=== PATIENT | male | born 1950 | race Caucasian/White ===

== ENCOUNTER 2017-09-12 09:09 | Emergency (ER) | payer MEDICARE, OTHER, SELFPAY ==
[2017-09-12 09:11] VITALS: BP 148/72; PULSE 90; RESP 18; TEMP 36.2; O2SAT 96; BMI 35.9
--- NOTE | 2017-09-12 09:25 | RAD_ITS ---
STUDY: X-RAY CHEST REASON FOR EXAM: Male, 67 years old. Cough. TECHNIQUE: Single AP portable view of the chest. COMPARISON: January 04, 2017. FINDINGS: There is moderate elevation of left hemidiaphragm. The right lung is expanded. Curvilinear opacities visible at the left lung base, similar to previous study and probably related to pulmonary fibrosis. There is mild interstitial thickening visible in both lungs. There is pleural fibrotic thickening of the pulmonary lung apices. There is borderline cardiomegaly. Normal mediastinum and jewel. There is prominence of the pulmonary hilar arteries without peripheral pulmonary vascular congestion. There is atherosclerotic calcification of the aortic arch with tortuosity. There is demineralization of the osseous structures. Normal visualized ribs, clavicles, and shoulders. There is no demonstrated abnormality of the visualized soft tissue structures of the upper abdomen. RAD/Chest 1 View IMPRESSION: No radiographic evidence of acute cardiopulmonary disease. Electronically Signed: Norma Ascencio MD at 10:25 EDT , Service support ,
--- NOTE | 2017-09-12 09:27 | ED.DCSUM_ITS ---
- ER Visit Summary Date of Service: 09/12/17 Chief Complaint: Fall, cough History of Present Illness: The patient is a 67 M who presents with a fall as well as a cough. He has fallen twice over the past couple of days. He states that his leg gave out and he fell off of the porch. His son had to help him up. He had pain in his back yesterday but that is now gone. He has some mild pain in his left shoulder. He states that he is here today only for his cough. He woke up this morning with it. It is productive of white sputum. He denies a history of lung problems but according to his chart he has mild COPD. He is a former smoker. He denies a fever. Physical Examination: Vital signs reviewed. HEENT exam unremarkable. Heart is regular rate and rhythm without murmurs. Lungs are clear to auscultation. Abdomen is soft and nontender. Extremities reveal no edema. He has no tenderness with range of motion or palpation of the left shoulder. His back is nontender. Skin exam normal. Neurologic exam normal. Test Results: Chest x-ray reveals no acute findings Emergency Department Course and Treatment: Patient was given 1 albuterol treatment. He feels better. He has no physical injuries from his falls. I do not feel any x-rays are needed for those. He has no rib fractures on x-ray. Patient will be treated with prednisone at home. I feel he likely has underlying bronchitis. He is a former smoker. I do not feel he requires any antibiotics as there is no change in his sputum production. He will use his albuterol inhaler he has at home. says he has not been using it recently. He will start using this and will follow up with his doctor Treatment Plan: [] Disposition: Discharge Impression: Acute bronchitis This note was generated with [employer] software. It may contain incorrect words, spelling, and punctuation that were not noted in review of the chart prior to signing ED Disposition - Plan for ED Patient: Chief Complaint: Fall Referrals: Raffaele Olguin MD [Primary Care Provider] -
[2017-09-12] MEDS: Albuterol 2.5 MG/3 ML VIAL.NEB. INHALATION (09:37)
[2017-09-12 09:39] VITALS: PULSE 89; RESP 18
--- NOTE | 2017-09-12 10:40 | ED.DEP ---
ED Disposition - Plan for ED Patient: Disposition: Home or Assisted Living Chief Complaint: Fall Instructions: ED Upper Resp Infec No Abx Tx Prescriptions: Prednisone [Deltasone] 60 mg PO DAILY #15 tab Referrals: Raffaele Olguin MD [Primary Care Provider] -
[2017-09-12 10:43] VITALS: BP 108/81; PULSE 94; RESP 16; O2SAT 92
== END 2017-09-12 11:00 | disposition home or self-care (01) ==
PROVIDERS: Emergency Provider Emergency Medicine; Family Provider Family Medicine; PCP Family Medicine
DX: J20.9 Acute bronchitis, unspecified (principal); W18.39XA Other fall on same level, initial encounter; Y93.9 Activity, unspecified; J44.9 Chronic obstructive pulmonary disease, unspecified; E11.9 Type 2 diabetes mellitus without complications; E78.00 Pure hypercholesterolemia, unspecified; E03.9 Hypothyroidism, unspecified; Z79.899 Other long term (current) drug therapy; Z79.4 Long term (current) use of insulin; Z79.84 Long term (current) use of oral hypoglycemic drugs; Z87.891 Personal history of nicotine dependence
CPT/HCPCS: 71045; 94640; 99282

== ENCOUNTER → 2017-09-30 07:49 | Outpatient (CLI) | payer MEDICARE, OTHER, SELFPAY ==
[2017-09-30 10:17] LABS: ALB/GLOB Ratio 0.8 RATIO (0.9-2.4); AST(SGOT) 15 U/L (15-37); Alanine Aminotransfer ALT/SGPT 27 U/L (16-61); Albumin, Serum 3.3 g/dL (3.2-5.0); Alkaline Phosphatase 78 U/L (45-117); Anion Gap 5 (5-15); BUN 16 mg/dL (7-18); BUN/Creat Ratio 17.6 RATIO (10-20); Calcium,Total 8.5 mg/dL (8.5-10.1); Chloride 102 mmol/L (98-107); Cholesterol 127 mg/dL (200); Creatinine, Serum 0.91 mg/dL (0.70-1.30); EST Glomerular Filtration Rate 88 mL/min (>60); Est Glom Filt Rate - Afr Amer 106 mL/min (>60); Glucose 327 mg/dL (74-106); High Density Lipoprotein 49 mg/dL; Potassium 4.1 mmol/L (3.5-5.1); Protein, Total 7.3 g/dL (6.4-8.2); Sodium Level 136 mmol/L (136-145); Triglycerides 53 mg/dL; Very Low Density Lipoprotein 11 mg/dL (5-40)
[2017-09-30 10:35] LABS: Microalbumin,Random Urine 16.5 mg/L (NO RANGE EST.); Microalbumin:Creatinine Ratio 19.4 mg/g CRE (<30 mg/g CRE)
== END ==
PROVIDERS: Family Provider Family Medicine; PCP Family Medicine; Visit Provider Nurse Practitioner
DX: E11.65 Type 2 diabetes mellitus with hyperglycemia (principal)
CPT/HCPCS: 36415; 80053; 80061; 82043; 82570

== ENCOUNTER 2018-09-11 13:40 | Emergency (ER) | payer MEDICARE, OTHER, SELFPAY ==
[2018-09-11 13:40] VITALS: BP 130/89; PULSE 95; RESP 20; TEMP 36.4; O2SAT 94; BMI 36.3
--- NOTE | 2018-09-11 14:01 | CT_ITS ---
STUDY: CT BRAIN WITHOUT CONTRAST REASON FOR EXAM: Male, 68 years old. Fall. Pain in the lower back. RADIATION DOSAGE (If Supplied By Facility): CTDIvol = ( 44.99 ) mGy, DLP = ( 829.95 ) mGycm TECHNIQUE: Transaxial CT imaging of the brain was performed without administration of intravenous contrast material. Individualized dose optimization techniques were used for this CT. COMPARISON: No relevant priors. FINDINGS: Normal soft tissue structures. Normal calvarium. There is mild cerebral atrophy with widening of the extra-axial spaces and ventricular dilatation. There are areas of decreased attenuation within the white matter tracts of the supratentorial brain, consistent with microvascular disease changes. Focal encephalomalacia is seen in the left frontal lobe. Normal basal ganglia and thalami. Normal brainstem. Normal cerebellum. There is no intracranial hemorrhage. There are no findings of an acute ischemic infarction. Atherosclerotic calcification of the cavernous portions of the internal carotid arteries bilaterally. Normal visualized paranasal sinuses. CT/Brain/Head without Contrast IMPRESSION: Chronic involutional changes of the brain. Focal encephalomalacia in the left frontal lobe. Electronically Signed: Scar Alvarez, at 15:22 EDT , Service support ,
--- NOTE | 2018-09-11 14:01 | CT_ITS ---
STUDY: CT ABDOMEN AND PELVIS WITH CONTRAST REASON FOR EXAM: Male, 68 years old. Lower back pain following a fall. RADIATION DOSAGE (If Supplied By Facility): CTDIvol = ( 18.74 ) mGy, DLP = ( 1499.72 ) mGycm TECHNIQUE: Transaxial images were obtained from the dome of the diaphragm to the symphysis pubis without oral contrast. 100 IV Isovue 300 was administered. Sagittal and coronal images were reconstructed. Individualized dose optimization techniques were used for this CT. COMPARISON: None. FINDINGS: Mild increased markings at the lung bases suggestive of scarring. Coronary artery calcification. Normal liver. There is a solitary gallstone. Normal spleen. Serpiginous vascular structures are seen in the splenic hilum suggestive of varices. Normal pancreas. Normal bilateral adrenal glands. Normal right kidney. Normal left kidney. There is a small hiatal hernia. Normal small intestine. Normal colon. The appendix is visualized and appears normal. There is diffuse atherosclerotic calcification of the abdominal aorta, without a demonstrated aneurysm. Normal inferior vena cava. Normal retroperitoneum. Normal urinary bladder. There are prostatic calcifications. Small bilateral inguinal hernias containing fat. 50% loss of height of the L5 and L4 vertebrae as well as almost complete collapse of the T12 vertebrae. Prior vertebral plasty of the T11 and L2 vertebrae. CT/Abdomen/Pelvis W IV Cont ONLY IMPRESSION: Solitary gallstone. Findings suggestive of scarring at the lung bases. Loss of height of the L4 and L5 vertebrae as well as the T12 vertebrae. Prior vertebroplasty of the T11 and L2 vertebrae. Electronically Signed: Scar Alvarez, at 15:44 EDT , Service support ,
[2018-09-11] MEDS: 0.9% Normal Saline 1,000 ML 150 ML IV (14:22)
[2018-09-11 14:32] LABS: Absolute Lymphocyte Count 1.68 X10^3/ul (0.83-4.51); Basophil# 0.01 X10^3/uL; Basophil% 0.1 % (0-1); Eosinophil# 0.12 X10^3/uL; Eosinophils% 1.4 % (0-5); Hematocrit 39.9 % (40-54); Hemoglobin 13.3 g/dl (13.0-16.5); Lymphocyte # 1.68 X10^3/ul (4.0); Lymphocyte % 19.9 % (19-41); Mean Corp Hgb Conc 33.3 g/gl (32-36); Mean Corpuscular Hgb 30.2 pg (27.0-32.0); Mean Corpuscular Volume 90.7 fL (80-94); Monocyte# 0.62 X10^3/uL; Monocyte% 7.3 % (0-10); Neutrophil # 5.96 X10^3/uL (2.7-7.7); Neutrophil % 70.6 % (47-70); Platelet Count 120 K/mm3 (150-450); RBC Distribution Width CV 13.9 % (11.6-14.6); RBC Distribution Width SD 46.1 fl (35.1-43.9); White Blood Count 8.5 K/mm3 (4.4-11.0)
[2018-09-11 14:35] LABS: POSITIVE COUNT NO; POSITIVE DIFFERENTIAL NO; POSITIVE MORPHOLOGY NO
[2018-09-11 14:42] LABS: Anion Gap 5 (5-15); BUN 20 mg/dL (7-18); BUN/Creat Ratio 24.3 RATIO (10-20); Calcium,Total 8.7 mg/dL (8.5-10.1); Chloride 103 mmol/L (98-107); Creatinine, Serum 0.82 mg/dL (0.70-1.30); EST Glomerular Filtration Rate 98 mL/min (>60); Est Glom Filt Rate - Afr Amer 119 mL/min (>60); Estimated Creatinine Clearance 102.91 ml/min; Glucose 188 mg/dL (74-106); Potassium 3.9 mmol/L (3.5-5.1); Sodium Level 136 mmol/L (136-145)
--- NOTE | 2018-09-11 15:23 | ED.DCSUM_ITS ---
- ER Visit Summary Date of Service: 09/11/18 Chief Complaint: [Mechanical fall and back injury] History of Present Illness: The patient is a 68 M [presents to the emergency department after sustaining a fall around 10:30 AM. Patient states he was doing some yard work cleaning up some trash in his yard when he lost his balance and fell backwards landing on his back. Patient complaining of low back pain. Patient had a hard time getting up initially his could not help him up but he eventually he was able to get up and he has been ambulatory since. Patient does not think he hit his head and he had no loss of consciousness. Patient is on Eliquis for history of atrial fibrillation. He has a history of diabetes and history of high cholesterol. Patient denies any neck pain. He denies any chest pain or abdominal pain. He denies any shortness of breath.] Physical Examination: [HEENT-PERRLA, EOMI. Cranial nerves II through XII grossly intact. TMs clear. Mucous membranes moist. No adenopathy. No external evidence of trauma to his head. No C-spine tenderness on palpation. Back exam-patient has some diffuse tenderness over lumbar spine and left flank. There is no ecchymosis or bruising noted. Cardiovascular-regular rate and rhythm without murmur or ectopy Lungs-clear to auscultation, chest wall stable without crepitus or subcu emphysema Abdomen-normoactive bowel sounds, soft, nontender, no rebound or rigidity, no peritoneal signs. Extremities-intact ?4, normal range of motion, normal pulses, atraumatic] Test Results: [CBC with differential obtained showed a normal white count of 8.5, hemoglobin 13, hematocrit 40, platelets 120. Chemistries unremarkable. CT scan of the brain and CT scan of the abdomen pelvis with IV contrast ordered and results which are currently pending] Emergency Department Course and Treatment: [Patient refused pain medication] Treatment Plan: [Care of patient turned over the evening physician awaiting CT results and final disposition] Disposition: [Pending] Impression: [Mechanical fall Contusion back] This note was generated with [employer] software. It may contain incorrect words, spelling, and punctuation that were not noted in review of the chart prior to signing ED Disposition - Plan for ED Patient: Referrals: Raffaele Olguin MD [Primary Care Provider] -
--- NOTE | 2018-09-11 15:49 | ED.DEP ---
ED Disposition - Plan for ED Patient: Disposition: Home or Assisted Living Instructions: ED Mechanical Fall Prescriptions: Oxycodone HCl/Acetaminophen [Percocet 5/325] 1 tab PO Q6H PRN PRN 3 Days #8 tab PRN Reason: Pain Referrals: Raffaele Olguin MD [Primary Care Provider] -
[2018-09-11 16:08] VITALS: BP 139/84; PULSE 71; RESP 16; O2SAT 95
== END 2018-09-11 16:09 | disposition home or self-care (01) ==
PROVIDERS: Emergency Provider Emergency Medicine; Family Provider Family Medicine; PCP Family Medicine
DX: S32.049A Unspecified fracture of fourth lumbar vertebra, initial encounter for closed fracture (principal); S32.059A Unspecified fracture of fifth lumbar vertebra, initial encounter for closed fracture; S30.0XXA Contusion of lower back and pelvis, initial encounter; W18.39XA Other fall on same level, initial encounter; Y93.H9 Activity, other involving exterior property and land maintenance, building and construction; Y92.007 Garden or yard of unspecified non-institutional (private) residence as the place of occurrence of the external cause; E11.9 Type 2 diabetes mellitus without complications; E03.9 Hypothyroidism, unspecified; E78.00 Pure hypercholesterolemia, unspecified; I48.91 Unspecified atrial fibrillation; Z79.01 Long term (current) use of anticoagulants; Z79.4 Long term (current) use of insulin; Z79.84 Long term (current) use of oral hypoglycemic drugs; Z79.899 Other long term (current) drug therapy; Z87.891 Personal history of nicotine dependence
CPT/HCPCS: 70450; 74177; 80048; 85025; 96360; 96361; 99283; J7030; Q9967; A4216

== ENCOUNTER 2018-09-16 11:52 | Inpatient (IN) | payer MEDICARE, OTHER, SELFPAY ==
[2018-09-16 11:53] VITALS: BP 122/78; PULSE 91; RESP 16; TEMP 36.5; O2SAT 92; BMI 36.5
[2018-09-16 13:17] LABS: Anion Gap 4 (5-15); BUN 16 mg/dL (7-18); BUN/Creat Ratio 17.2 RATIO (10-20); Calcium,Total 8.9 mg/dL (8.5-10.1); Chloride 107 mmol/L (98-107); Creatinine, Serum 0.93 mg/dL (0.70-1.30); EST Glomerular Filtration Rate 85 mL/min (>60); Est Glom Filt Rate - Afr Amer 103 mL/min (>60); Estimated Creatinine Clearance 90.74 ml/min; Glucose 106 mg/dL (74-106); Potassium 3.9 mmol/L (3.5-5.1); Sodium Level 140 mmol/L (136-145)
[2018-09-16 13:52] LABS: Absolute Lymphocyte Count 1.44 X10^3/ul (0.83-4.51); Absolute Neutrophil Count 7.4 X10^3/uL (2.0-7.7); Basophil# 0.03 X10^3/uL; Basophil% 0.3 % (0-1); Differential Indicated SCAN CRITERIA MET; Eosinophil# 0.09 X10^3/uL; Eosinophils% 0.9 % (0-5); Hematocrit 41.6 % (40-54); Hemoglobin 13.9 g/dl (13.0-16.5); Lymphocyte # 1.44 X10^3/ul (4.0); Lymphocyte % 14.6 % (19-41); Mean Corp Hgb Conc 33.4 g/gl (32-36); Mean Corpuscular Volume 89.8 fL (80-94); Monocyte# 0.83 X10^3/uL; Monocyte% 8.4 % (0-10); Neutrophil # 7.43 X10^3/uL (2.7-7.7); Neutrophil % 75.5 % (47-70); POSITIVE COUNT NO; POSITIVE DIFFERENTIAL NO; POSITIVE MORPHOLOGY YES; Platelet Count 108 K/mm3 (150-450); RBC Distribution Width CV 14.1 % (11.6-14.6); RBC Distribution Width SD 46.1 fl (35.1-43.9); Red Blood Count 4.63 M/mm3 (4.6-6.2); White Blood Count 9.9 K/mm3 (4.4-11.0)
--- NOTE | 2018-09-16 14:43 | RAD_ITS ---
STUDY: X-RAY - RIGHT FEMUR REASON FOR STUDY: Male, 68 years old. Pain since Saturday, throbbing, fall on . TECHNIQUE: 6 view(s) of the femur. COMPARISON: None. FINDINGS: Normal visualized femur. No acute soft tissue injury. Prominent peripheral arterial calcifications. No evidence of knee joint effusion. No significant degenerative features of the hip joint. RAD/Femur Min 2 Views IMPRESSION: Normal x-ray examination of the femur. Electronically Signed: Yonis Taylor MD at 15:48 EDT Tel , Service support ,
--- NOTE | 2018-09-16 15:30 | ED.VISSUMM ---
- ER Visit Summary Date of Service: 09/16/18 Chief Complaint: Frequent falls History of Present Illness: The patient is a 68 M who states that last week he was seen in the emergency department following a fall. Chart review shows this occurred on 411. CT of the abdomen pelvis demonstrates 50% loss of height of the L5 and L4 vertebrae. There is also almost complete collapse of T12 vertebrae. Patient has had prior T11 and L2 vertebroplasty.The T12 is old. Patient states he has been using a cane at home. He states that as he goes to move he has severe pain wrapping around the buttock and down over the anterior lower thigh. This is resulted in him falling multiple times. lives at home with his . She states they have had to call family to come help lift him off the floor. is concerned about his safety. Physical Examination: Afebrile vital signs are stable Gen: Well-nourished well-developed Head: Normocephalic atraumatic Eyes: Perrl EOMI ENT: TMs clear no rhinorrhea moist mucous membranes Neck: Supple no lymphadenopathy no JVD nontender CVS: Regular rate rhythm no murmurs normal S1-S2 Respiratory: No distress clear to auscultation bilaterally chest nontender Abdomen: Soft nontender nondistended normal bowel sounds no masses Back: Tender palpation midline of the lumbar lower spine Extremity: Nontender no edema Skin: Normal color no rash Neuro: alert orientated ?3 CN II-XII intact normal strength sensation reflexes Psych: Normal affect normal mood Test Results: X-ray of the femur were negative. CBC and chemistries were normal. Emergency Department Course and Treatment: I too am concerned about the patient's safety at home as he is frequently falling. I suspect that due to the compression fractures she is having some radiculopathy particularly the L4 dermatome that results in pain and him falling. I think would be appropriate to bring him in under observation and have physical therapy evaluate him as well as possibly pain management. Impression: 1. L4 and L5 compression fractures. 2. L4 radiculopathy. This note was generated with [employer] software. It may contain incorrect words, spelling, and punctuation that were not noted in review of the chart prior to signing ED Disposition - Plan for ED Patient: Referrals: Raffaele Olguin MD [Primary Care Provider] -
[2018-09-16 15:34] VITALS: BP 121/95; PULSE 86; RESP 16; O2SAT 93
--- NOTE | 2018-09-16 15:50 | NURSING ---
MED SURG OBS PAINTSIL L4/5 COMPRESSION FX, L4 RADICULAPATHY
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
[2018-09-16 15:59] VITALS: BP 121/95; PULSE 86; RESP 16; O2SAT 93
[2018-09-16 16:29] VITALS: BMI 36.5
[2018-09-16 16:36] VITALS: BMI 35.8
--- NOTE | 2018-09-16 16:41 | CASEMGMT ---
RN CM Assessment Introduced role of RN CM to patient and Ramone at bedside.? Patient is alert, oriented and able?to participate in RN CM Assessment. ?Care providers, pharmacy, and demographics verified. Presentation: Presented to ER 09/11/18 for c/o Fall, DX L4&L5 Compression Fx. Decreased Mobility at home d/t pain, patient on floor per d/t pain and unable to get him up, called EMS. Unable to get f/u with pcp after ED Visit as pcp on vacation. Admit Dx: Acute low back pain/compression Re-Admit: No Barriers/Issues: Home Safety, H/o Falls. PCP: Raffaele Olguin Specialists: [facility], Pod- Dr Anderson Preferred Pharmacy: [facility] Original Insurance: [email or web address], [facility] Benefit:?Yes ?LNOK: Ramone Turcios Living Arrangements:? Lives with in a SS Home, other Adult family live in home. 2 Steps to enter. ADL?s: Independent with ambulation and ADL's, uses Cane as needed. Transportation: Patient drives, to drive on [place]. DME: Cane, Glucometer. Patient does not want any additional DME such as Walker or WC. HHC: None. Open to PT if needed, however states his dog went off on EMS so unsure about people in the home. States had Outpatient PT in past- might be better option if PT needed. SNF: Past at [facility] Goal: Pain Control, Home with possible Outpatient PT if needed. Denies needing any DME such as walker/WC. DC PLAN: Home with possible HH vs. Outpatient PT. MARBELLA Almendarez
[2018-09-16 17:41] VITALS: BP 124/76; PULSE 75; RESP 18; TEMP 36.3; O2SAT 96
[2018-09-16 19:18] LABS: Hemoglobin A1c 7.9 % (4.2-6.3)
[2018-09-16] MEDS: Morphine 2 MG/ML Syringe 1 MG IV (19:53)
[2018-09-16] MEDS: 0.9% NaCl Peripheral Flush Adult/Peds IV (19:54)
[2018-09-16 20:06] VITALS: BP 136/84; PULSE 96; RESP 16; TEMP 36.9; O2SAT 94
[2018-09-16 20:18] LABS: Bacteria 0 SEEN /hpf (None Seen); Red Blood Cells-Urine 0 SEEN /hpf (0-5); Squamous Epithelial Cells - UA 0 SEEN /hpf (0-5); White Blood Cells 0 SEEN /hpf (0-5)
[2018-09-16 20:25] LABS: Color, Urine Yellow (Yellow); Glucose, Dipstick Normal (Normal); Ketone-Dipstick Negative (Negative); Leukocyte Esterase-Dipstick 25 /ul (Negative); Nitrite-Dipstick Negative (Negative); Occult Blood-Urine Negative /ul (Negative); Protein-Dipstick Negative (Negative); Urine Bilirubin Dipstick Negative (Negative); Urine Clarity Clear (Clear); Urine Urobilinogen 4 mg/dl (Normal)
[2018-09-16 20:31] LABS: Calcium Oxalate Crystals Ur RARE /hpf (<or=2+); Mucous, Urine RARE /hpf (<or=2+)
[2018-09-16] MEDS: oxyCODONE 5 MG Tablet PO (21:59)
[2018-09-16] MEDS: Insulin Lispro 100 UNIT/ML INSULN.PEN SQ (22:07)
[2018-09-16] MEDS: Venlafaxine HCl 75 MG Tablet PO (22:10)
[2018-09-16] MEDS: Acetaminophen 500 MG Tablet 1000 MG PO (22:11)
[2018-09-16] MEDS: Pravastatin 40 MG Tablet PO (22:11)
[2018-09-16 22:16] LABS: Bedside Glucose 158 mg/dL (70-110)
[2018-09-16 23:20] LABS: Bedside Glucose 113 mg/dL (70-110)
[2018-09-17] VITALS (10 sets, daily range): BP systolic 119–153; BP diastolic 71–100; PULSE 80–99; RESP 16–18; TEMP 36.4–37; O2SAT 92–96; BMI 35.8
[2018-09-17] MEDS: oxyCODONE 5 MG Tablet PO (04:09)
[2018-09-17] MEDS: Venlafaxine HCl 75 MG Tablet PO ×2 (06:34→21:26)
[2018-09-17] MEDS: Levothyroxine 175 MCG Tablet PO (06:34)
[2018-09-17] MEDS: Acetaminophen 500 MG Tablet 1000 MG PO ×3 (06:34→21:27)
[2018-09-17 06:41] LABS: Bedside Glucose 126 mg/dL (70-110)
[2018-09-17 08:10] LABS: Bedside Glucose 117 mg/dL (70-110)
--- NOTE | 2018-09-17 08:34 | NURSING ---
Called Dr. Garcia's office, aware that we are waiting to hear from MD about a possible injection today. Staff stated she would call this nurse back when Dr. Garcia is in and will let us know.
--- NOTE | 2018-09-17 08:43 | NURSING ---
Received return call from Dr. Garcia's offce. States he will be up to see the patient on the unit this am and will let us know the plan for possible injection at that time. Primary RN Matilda aware.
[2018-09-17] MEDS: 0.9% NaCl Peripheral Flush Adult/Peds IV (11:50)
[2018-09-17 11:56] LABS: Bedside Glucose 112 mg/dL (70-110)
--- NOTE | 2018-09-17 15:15 | RAD_ITS ---
PROCEDURE: Lumbar epidural block at the L4-L5 level. DATE OF EXAMINATION: September 17, 2018. INDICATION: Male, 68 years old. Low back pain. FLUOROSCOPY TIME (if supplied): (0:07) minutes/seconds. A single coned-down intraoperative view was obtained. Intraoperative imaging provided for L4-L5 epidural block. RAD/Spine 1 View Any Level IMPRESSION: Intraoperative imaging provided for L4-L5 epidural block. Electronically Signed: Scar Alvarez, at 9:36 EDT , Service support
[2018-09-17] MEDS: Triamcinolone Acetonide 40 MG/ML Vial (15:29)
--- NOTE | 2018-09-17 16:51 | DCINST_ITS ---
- Discharge Diagnoses Current Active Problems: Current Active and Chronic Problems (Last Reviewed 12/23/17 @ 08:30 by Sarah Ma) Acute back pain (Acute) DM type 2 (diabetes mellitus, type 2) (Acute) Hypothyroidism (Chronic) Hyperlipidemia (Chronic) You will use the following diet at home:: Calorie/Carbohydrate Controlled (specify 1200, 1400, etc) - 1800 adrianna Discharge Activity: Return to Normal Activity Weight Bearing Status: Full weight bearing Allergies/Adverse Reactions: Allergies No Known Allergies Allergy (Verified 09/11/18 13:42) Medications to take at Discharge Levothyroxine [Synthroid] 175 mcg PO DAILY 07/30/14 Pravastatin [Pravachol] 40 mg PO QHS 07/30/14 Furosemide [Lasix] 20 mg PO DAILY 09/11/18 Insulin Glargine,Hum.rec.anlog [Lantus Solostar] 40 unit SQ DAILY 09/16/18 Insulin Glargine,Hum.rec.anlog [Lantus Solostar] 50 unit SQ DAILY 09/16/18 Insulin Lispro [Humalog KwikPen] 20 units SQ DAILY 09/16/18 Insulin Lispro [Humalog Kwikpen] 25 units SQ DAILY 09/16/18 Metformin(XR) [Glucophage Xr] 1,000 mg PO DAILY 09/16/18 Perphenazine 4 mg PO QHS 09/16/18 Venlafaxine HCl [Effexor] 75 mg PO TID 09/16/18 Oxycodone [Oxyir] 5 - 10 mg PO Q6H PRN PRN 7 Days #30 tab 09/17/18 Oxycodone [Oxyir] 5 - 10 mg PO Q6H PRN PRN 7 Days #30 tablet 09/17/18 The following prescriptions were given: Oxycodone [Oxyir] 5 - 10 mg PO Q6H PRN PRN 7 Days #30 tablet PRN Reason: Severe Pain (6-10/10) Oxycodone [Oxyir] 5 - 10 mg PO Q6H PRN PRN 7 Days #30 tab PRN Reason: Pain Primary Care Physician: Raffaele Olguin MD [Primary Care Provider] - Please follow up with your Primary Care Physician in: 1-2 weeks Test Results: Test results from this visit will be discussed in further detail at your follow- up appointment, if applicable. Please Follow Up With: Mukund Garcia MD When: in 2 weeks-call for an appointment
--- NOTE | 2018-09-17 17:26 | MRI_ITS ---
STUDY: MRI LUMBAR SPINE WITHOUT CONTRAST REASON FOR EXAM: Male, 68 years old. Low back pain. Falls. Right leg pain. Previous compression fractures and kyphoplasty. TECHNIQUE: Standardized fat and water weighted pulse sequences were obtained in the sagittal and axial planes. COMPARISON: X-ray dated March 30, 2016. FINDINGS: Acute/subacute L3 endplate compression fracture (approximately 10 degrees) with vertebral body bone marrow edema (sagittal image 7 series 4). No retropulsion of the L3 vertebral body components. Chronic T12 compression deformity (approximately 90%) without retropulsion. Chronic L2 compression deformity (approximately 50%) and kyphoplasty without retropulsion. Chronic L4 superior endplate compression deformity (approximately 40%) without retropulsion. Chronic L5 superior endplate compression deformity (approximately 50%) without retropulsion. No dislocation. No spondylolisthesis. Slightly exaggerated lumbar lordosis. No significant scoliosis. Conus medullaris terminates normally at the T12 level. T12-L1: Normal disc height, hydration and morphology. Normal bilateral facet joints. Normal central canal and bilateral lateral recesses. Normal bilateral intervertebral neural foramina. L1-2: Disc bulge with mild central canal narrowing. Facet joint arthrosis. Normal bilateral lateral recesses. Mild neural foraminal narrowing without impingement. L2-3: Disc bulge with mild central canal narrowing. Facet joint arthrosis. Normal bilateral lateral recesses. Mild neural foraminal narrowing without impingement. L3-4: Disc bulge with mild central canal narrowing. Facet joint arthrosis. Normal bilateral lateral recesses. Bilateral neural foramina narrowing with impingement on the right. L4-5: Disc bulge without central canal narrowing. Facet joint arthrosis. Normal central canal and bilateral lateral recesses. Mild neural from narrowing without impingement. L5-S1: Disc desiccation with disc height loss. Facet joint arthrosis. Normal central canal and bilateral lateral recesses. Mild neural foraminal narrowing without impingement. Sacrum intact. Paraspinal muscle atrophy. Normal aorta. Normal retroperitoneum. MRI/Spine Lumbar (Routine) IMPRESSION: Acute/subacute L3 compression fracture without retropulsion Extensive multilevel chronic compression deformities without retropulsion Extensive multilevel intervertebral disc disease with mild central canal narrowing at L1-2, L2-3 and L3-4 Multilevel neural femoral narrowing with impingement of the right exiting L4 nerve root Multilevel osseous degenerative changes with slightly exaggerated lumbar lordosis Electronically Signed: Raffaele Carrillo DO at 8:29 EDT Tel , Service support ,
--- NOTE | 2018-09-17 19:14 | PN_ITS ---
Patient Problems: Active and Suspected Problems (Last Reviewed 12/23/17 @ 08:30 by Sarah Ma) Acute back pain (Acute) DM type 2 (diabetes mellitus, type 2) (Acute) Subjective: Patient was seen and examined today, he underwent a lumbar epidural injection at L4-L5 today by pain management. He was initially set up to go home tonight but he was unable to walk without maximal assistance and is probably going to need a walker which she does not have at home. I have elected to keep him in the hospital have physical therapy see him tomorrow and obtain an MRI of the lumbar spine-patient has never had an MRI of his lumbar spine. - Physical Exam General: Alert, Oriented x3, Cooperative, No apparent distress, Well developed HEENT: Atraumatic, PERRLA, EOMI, Normocephalic Oral: Moist Mucosa Neck: Supple, No JVD, No Nuchal Rigidity, Trachea Midline, Thyroid Normal Size and Texture Lungs: Clear to auscultation, Normal air movement, No rhonchi, No wheeze Cardiovascular: Regular rate, Regular Rhythm, Normal S1, Normal S2, No murmurs, No Ectopic Activity, PMI Normal Abdomen: Bowel Sounds Present, Soft, Non Tender, Non-Distended, Obese Extremities: No clubbing, No cyanosis, Capillary Refill Less than 3 Seconds Skin: No rashes, No breakdown Musculoskeletal: No Tenderness to Palpation of Joints or Extremities Neurological: Cranial nerves II-XII grossly intact, Neuro grossly intact, Sensory exam intact to light touch and pain Psych/Mental Status: Normal Affect, Appropriate, Alert and oriented to time, place, person, mood and affect Vital Signs Temp Pulse Resp BP Pulse Ox 98.4 F 92 18 135/79 H 94 09/17/18 16:40 09/17/18 16:40 09/17/18 16:40 09/17/18 16:40 09/17/18 16:40 Oxygen Delivery Method Room Air Weight: 133.5 kg Body Mass Index (BMI) 35.8 Finger Stick Blood Glucose 468 Intake and Output for Last 24 Hours 09/15/18 09/16/18 09/17/18 23:59 23:59 23:59 Intake Total 850 / 850 Balance 850 / 850 Laboratory Tests Past 24 Hrs 09/16/18 09/16/18 12:55 20:05 Hemoglobin A1c 7.9 H Urine Color Yellow Urine Clarity Clear Urine pH 5.0 Ur Specific [place] 1.020 Urine Protein Negative Urine Glucose (UA) Normal Urine Ketones Negative Urine Occult Blood Negative Urine Nitrite Negative Urine Bilirubin Negative Urine Urobilinogen 4 H Ur Leukocyte Esterase 25 H Urine RBC 0 SEEN Urine WBC 0 SEEN Ur Squamous Epith Cells 0 SEEN Calcium Oxalate Crystal RARE Urine Bacteria 0 SEEN Urine Mucus RARE POC Glucose 09/17/18 09/17/18 09/17/18 11:41 08:04 06:37 POC Glucose 112 H 117 H 126 H 09/16/18 09/16/18 22:04 17:49 POC Glucose 158 H 113 H Medical Necessity - Tobacco Use Smoking Status: Former smoker Tobacco Use: Non-smoker Assessment/Plan All Active Problems (Last Reviewed 12/23/17 @ 08:30 by Sarah Ma) Acute back pain (Acute) DM type 2 (diabetes mellitus, type 2) (Acute) #1 acute radicular lumbar pain secondary to degenerative joint disease of the lumbar spine with right-sided nerve root impingement L4-L5-PT and OT will see the patient tomorrow, he will probably need a walker for use at home #2 old compression fractures of the lumbar spine-I will review the patient's medications at the time of discharge tomorrow, he will need to be placed on medication for osteoporosis #3 type 2 diabetes-patient's long-acting insulin will be held tonight, his blood sugars have been trending low and I am afraid that if he gets basal insulin he may bottom out. #4 hyperlipidemia #5 lumbar pain secondary to osteoarthritis and degenerative joint disease lumbar spine Code Visit Inpatient E&M: 56196 Init Hosp L2
[2018-09-17] MEDS: Pravastatin 40 MG Tablet PO (21:26)
[2018-09-17] MEDS: Insulin Lispro 100 UNIT/ML INSULN.PEN SQ (21:28)
[2018-09-17 21:30] LABS: Bedside Glucose 278 mg/dL (70-110)
[2018-09-18 03:30] VITALS: BP 138/88; PULSE 91; RESP 14; TEMP 36.7; O2SAT 93
[2018-09-18] MEDS: Acetaminophen 500 MG Tablet 1000 MG PO ×2 (05:29→14:18)
[2018-09-18] MEDS: Venlafaxine HCl 75 MG Tablet PO ×2 (05:29→14:18)
[2018-09-18] MEDS: Levothyroxine 175 MCG Tablet PO (05:29)
[2018-09-18] MEDS: Insulin Lispro 100 UNIT/ML INSULN.PEN SQ ×2 (07:04→11:39)
[2018-09-18 07:06] LABS: Bedside Glucose 114 mg/dL (70-110)
[2018-09-18 07:10] LABS: Bedside Glucose 278 mg/dL (70-110)
[2018-09-18 09:58] VITALS: BP 99/65; PULSE 100; RESP 18; TEMP 36.6; O2SAT 96
[2018-09-18] MEDS: Furosemide 20 MG Tablet PO (10:05)
[2018-09-18 12:10] LABS: Bedside Glucose 346 mg/dL (70-110)
--- NOTE | 2018-09-18 13:29 | CASEMGMT ---
RN CM in to discuss discharge needs at this time. Patient will need a walker and is agreeable to [facility] and would like [facility]. Patient would like [facility] for DME. Script received for walker and faxed to [facility], [facility]. Referral sent to [facility] and they are able to accept the patient. CM will continue to follow this patient and plan for a safe discharge.
[2018-09-18 14:17] VITALS: BP 122/68; PULSE 101; RESP 18; TEMP 36.7; O2SAT 98
--- NOTE | 2018-09-19 14:36 | CASEMGMT ---
MG CM DC PHONE CALL DC DATE: 09/19/18 DC Disposition: Home with HHS LACE/STRATA: 03/05 Attempted call to home phone. No answer and no message machine with identifier noted. Galen BURGOSN RN ACM
--- NOTE | 2018-09-22 16:15 | PCM.DC.SUM ---
Discharge Date and Diagnosis Date of Admission: 09/16/18 Date of Discharge: 09/18/18 - Primary Discharge Diagnosis #1 acute radicular lumbar pain secondary to degenerative joint disease of the lumbar spine with right-sided nerve root impingement L4-L5 #2 old compression fractures of the lumbar spine-secondary to osteoporosis #3 type 2 diabetes #4 hyperlipidemia #5 lumbar pain secondary to osteoarthritis and degenerative joint disease lumbar spine - Secondary Discharge Diagnosis Chronic Problems (Last Reviewed 12/23/17 @ 08:30 by Sarah Ma) Hypothyroidism (Chronic) Hyperlipidemia (Chronic) Poorly controlled type 2 diabetes mellitus (Chronic) With diet instruction and BG reading education patient has been trying to avoid high carb meals. Is getting up in the middle of the night and eating on occasion. reports he sneaks food at various times during the day. Still eats two meals daily Is beginning to understand importance of carb intake with each meal. He is able to see the difference in BG readings when his carb content is too high and/or varied. Enc consistency in diet Read labels. Consider 3 meals daily instead of two large meals. At this time nesha has much higher readings; in part due to prednisone use recently and continues to eat during night without insulin. I have ask him to stop eating in the night. Will increase his levemir to 55 units twice daily and if all BG above 200 he will increase to 60 units twice daily in 1 week. On statin Bp controlled Eye exam each year. Hospital Course and Treatment Operations: None Procedures: - - Lumbar epidural steroid injection L4-L5 Summary of Care Provided: The patient is a 68 year old M was seen in the emergency room at [facility] with a chief complaint of low back pain and pain radiating into his right buttocks and down his right leg. X-rays were done in the emergency room of the right femur which were negative for any acute injury, CBC and chemistries were normal. Patient was admitted to [place] [address], CT of the abdomen and pelvis done on 09/11/2018 was reviewed and it showed L4-L5 compression fracture as well as an old T12 vertebral fracture with prior kyphoplasty of T11 and L2. Pain management was consulted to see the patient, he was seen by PT and OT, it was recommended that the patient receive an epidural injection which was carried out on 09/17/2018. After the injection, plans were made for the patient to be discharged home but he was unsteady and felt to need a walker and further physical therapy. On 09/18/2018, patient was seen and examined and felt to be in stable condition for discharge home: On examination he appeared in good health and spirits. Vital signs as documented. Skin warm and dry and without overt rashes. Neck without JVD. Lungs clear. Heart exam notable for regular rhythm, normal sounds and absence of murmurs, rubs or gallops. Abdomen unremarkable and without evidence of organomegaly, masses, or abdominal aortic enlargement. Extremities nonedematous. Neuro: Cranial nerves II through XII are grossly intact, no focal motor deficits were noted, sensation to light touch and pinprick intact. Psych: Patient is alert and oriented x3, he does not appear anxious or depressed On 09/18/2018, patient was seen and examined and discharged home in stable condition - Physical Exam Vital Signs Temp Pulse Resp BP Pulse Ox 98.1 F 101 H 18 122/68 H 98 09/18/18 14:17 09/18/18 14:17 09/18/18 14:17 09/18/18 14:17 09/18/18 14:17 Oxygen Delivery Method Room Air Weight: 133.5 kg Body Mass Index (BMI) 35.8 Finger Stick Blood Glucose 468 Discharge Activity: Return to Normal Activity Weight Bearing Status: Full weight bearing Home Medications: Medications to take at Discharge Levothyroxine [Synthroid] 175 mcg PO DAILY 07/30/14 Pravastatin [Pravachol] 40 mg PO QHS 07/30/14 Furosemide [Lasix] 20 mg PO DAILY 09/11/18 Insulin Glargine,Hum.rec.anlog [Lantus Solostar] 40 unit SQ DAILY 09/16/18 Insulin Glargine,Hum.rec.anlog [Lantus Solostar] 50 unit SQ DAILY 09/16/18 Insulin Lispro [Humalog KwikPen] 20 units SQ DAILY 09/16/18 Insulin Lispro [Humalog Kwikpen] 25 units SQ DAILY 09/16/18 Metformin(XR) [Glucophage Xr] 1,000 mg PO DAILY 09/16/18 Perphenazine 4 mg PO QHS 09/16/18 Venlafaxine HCl [Effexor] 75 mg PO TID 09/16/18 Oxycodone [Oxyir] 5 - 10 mg PO Q6H PRN PRN 7 Days #30 tab 09/17/18 Oxycodone [Oxyir] 5 - 10 mg PO Q6H PRN PRN 7 Days #30 tablet 09/17/18 Calcium Carbonate/Vitamin D3 [Os-Heriberto 500+D3 Caplet] 2 each PO DAILY #1 tablet 09/18/18 Cholecalciferol (VIT D3) [Vitamin D] 1,000 unit PO DAILY #1 tablet 09/18/18 Risedronate [Actonel] 35 mg PO QWEEK #4 tablet 09/18/18 Following Prescrptions Were Given to Patient: Oxycodone [Oxyir] 5 - 10 mg PO Q6H PRN PRN 7 Days #30 tablet PRN Reason: Severe Pain (-03/12) Oxycodone [Oxyir] 5 - 10 mg PO Q6H PRN PRN 7 Days #30 tab PRN Reason: Pain Calcium Carbonate/Vitamin D3 [Os-Heriberto 500+D3 Caplet] 2 each PO DAILY #1 tablet Cholecalciferol (VIT D3) [Vitamin D] 1,000 unit PO DAILY #1 tablet Risedronate [Actonel] 35 mg PO QWEEK #4 tablet Primary Care Physician: Raffaele Olguin MD [Primary Care Provider] - Please follow up with your Primary Care Physician in: 1-2 weeks Please Follow Up With: Mukund Garcia MD When: in 2 weeks Please Follow Up With: Raffaele Olguin MD When: 1 TO 2 WEEKS Disposition: Home Minutes spent on discharge:: 32 Patient Condition:: Stable Medical Necessity - Tobacco Use Smoking Status: Former smoker Tobacco Use: Non-smoker Meaningful Use Info Meaningful Use Diagnoses (Choose all that apply): None applicable Code Visit Inpatient E&M: 76405 Disch Hosp
== END 2018-09-18 15:40 | disposition home or self-care (01) | DRG 552 ==
LOC: ED 13:10 → MS3 16:09
PROVIDERS: Anesthesiology Pain Medicine; Admitting Provider Internal Medicine; Emergency Provider Emergency Medicine; Family Provider Family Medicine; PCP Family Medicine; Referring Provider Internal Medicine; Visit Provider Internal Medicine
PROC: 3E0S3BZ Introduction of Anesthetic Agent into Epidural Space, Percutaneous Approach (ICD-10-PCS; CPT 62322; principal; 2018-09-17 13:55)
DX: M47.26 Other spondylosis with radiculopathy, lumbar region (principal); M80.08XS Age-related osteoporosis with current pathological fracture, vertebra(e), sequela; M48.061 Spinal stenosis, lumbar region without neurogenic claudication; M96.1 Postlaminectomy syndrome, not elsewhere classified; E78.5 Hyperlipidemia, unspecified; E03.9 Hypothyroidism, unspecified; E66.01 Morbid (severe) obesity due to excess calories; Z68.35 Body mass index [BMI] 35.0-35.9, adult; E11.9 Type 2 diabetes mellitus without complications; Z79.4 Long term (current) use of insulin; Z79.84 Long term (current) use of oral hypoglycemic drugs; Z79.899 Other long term (current) drug therapy; Z87.891 Personal history of nicotine dependence
CPT/HCPCS: 64483; 72020; 72148; 73552; 80048; 81001; 82962; 83036; 85025; 97116; 97162; 97165; 97530; 99284; A4216

== ENCOUNTER 2018-10-25 13:36 | Emergency (ER) | payer MEDICARE, OTHER, SELFPAY ==
[2018-09-17 11:46] VITALS: BMI 35.8
[2018-10-25 13:37] VITALS: BP 123/76; PULSE 81; RESP 18; TEMP 36.3; O2SAT 93; BMI 37.3
--- NOTE | 2018-10-25 14:46 | RAD_ITS ---
STUDY: X-RAY - LUMBAR SPINE REASON FOR EXAM: Male, 68 years old. Increasing lower back pain TECHNIQUE: 3 view(s) of the lumbar spine were obtained. COMPARISON: 09/17/2018 FINDINGS: Normal lumbar lordosis. There is no substantial scoliosis. There is a normal alignment of the vertebrae. Diffuse osteopenia. Vertebral augmentation segment of L2 and T11 noted. Similar compression from T12 since prior MRI. Increased amount of compression deformity involving the mid and inferior L3 vertebral body as compared to prior CT. Convex deformity of the L4 superior endplate likely represents degenerative sequela/Schmorl's node. Disc space heights similar since the prior study. There is atherosclerotic calcification of the abdominal aorta without a demonstrated aneurysm. RAD/Lumbar Spine 2 or 3 Views IMPRESSION: 1. Increasing compression deformity of L3 as compared to prior MRI. 2. Additional stable chronic changes, as above. Electronically Signed: Emmanuel Benitez MD at 15:39 EDT , Service support ,
[2018-10-25] MEDS: HYDROmorphone 1 MG/ML Syringe SC (15:17)
--- NOTE | 2018-10-25 16:06 | ED.VISSUMM ---
- ER Visit Summary Date of Service: 10/25/18 Chief Complaint: Back pain History of Present Illness: The patient is a 68 M with left lower back pain the pain starts in his butt cheek. Radiates down his left leg. Patient has a history of a fall 4 weeks ago. He had an L3 compression fracture. He was admitted to the hospital and had an MRI. His fracture was stable and he was discharged home. He is currently in pain management. He is taking [place] 4 times a day with minimal improvement. No interval trauma or new symptoms. His pain was just worse today despite taking his medications. Physical Examination: Afebrile and vital signs unremarkable. Alert and oriented. No acute distress. Abdomen soft and nontender. No guarding or rebound. No masses. He does have lumbar tenderness. Straight leg raise is negative. He is neurovascular intact distally. Good strength and sensation. Test Results: Repeat x-ray showed a worsening L3 compression fracture. This is less than 50%. He also has remote and degenerative changes. Emergency Department Course and Treatment: Patient received 1 dose of Dilaudid. His pain completely resolved. He had no new or worsening issues. Despite the worsening fracture, I do not believe he needs further imaging. This is only slightly worse. I believe the fracture is stable. He has no concerning neurologic symptoms or other findings. Patient will follow-up with his pain doctor as planned. Continue his home medications. Treatment Plan: As above Disposition: Discharge Impression: Lumbar back pain L3 compression fracture This note was generated with DubMe[employer] dictation software. It may contain incorrect words, spelling, and punctuation that were not noted in review of the chart prior to signing ED Disposition - Plan for ED Patient: Referrals: Raffaele Olguin MD [Primary Care Provider] -
--- NOTE | 2018-10-25 16:08 | ED.DEP ---
ED Disposition - Plan for ED Patient: Instructions: ED Fx Comp Vertebral Referrals: Mukund Garcia MD [STAFF PHYSICIAN] -
[2018-10-25 16:20] VITALS: RESP 14
== END 2018-10-25 16:21 | disposition home or self-care (01) ==
LOC: ED 15:08
PROVIDERS: Emergency Provider Emergency Medicine; Family Provider Family Medicine; PCP Family Medicine
DX: S32.039A Unspecified fracture of third lumbar vertebra, initial encounter for closed fracture (principal); W19.XXXA Unspecified fall, initial encounter; Y93.9 Activity, unspecified; Y92.9 Unspecified place or not applicable; I48.91 Unspecified atrial fibrillation; E11.9 Type 2 diabetes mellitus without complications; Z79.84 Long term (current) use of oral hypoglycemic drugs; Z79.01 Long term (current) use of anticoagulants; Z79.4 Long term (current) use of insulin; Z79.899 Other long term (current) drug therapy
CPT/HCPCS: 72100; 96372; 99282

== ENCOUNTER 2018-10-31 12:22 | Day surgery (SDC) | payer MEDICARE, OTHER, SELFPAY ==
[2018-10-31] VITALS (10 sets, daily range): BP systolic 98–117; BP diastolic 64–81; PULSE 80–110; RESP 16–22; TEMP 36.4–36.7; O2SAT 93–97; BMI 35.5
[2018-10-31 13:06] LABS: Bedside Glucose 159 mg/dL (70-110)
--- NOTE | 2018-10-31 15:25 | RAD_ITS ---
CLINICAL HISTORY: Male, 68 years old. Back pain and fracture PROCEDURE: KYPHOPLASTY - L3 FLUOROSCOPY TIME (if supplied): (2:08) minutes/seconds Technique:) 7 fluoroscopic guided images were obtained during L3 kyphoplasty as per clinical history. FINDINGS:. Films were obtained demonstrating transpedicular injection of cement bilaterally into the collapsed L3 vertebral body. For more complete information recommend correlation with surgical notes RAD/Spine 1 View Any Level IMPRESSION: Fluoroscopic guided L3 kyphoplasty Electronically Signed: Lemuel Hinson MD at 17:49 EDT , Service support ,
[2018-10-31] MEDS: Cefazolin 2 GM in 0.9% Normal Saline 100 ML IV (15:48)
[2018-10-31] MEDS: Ipratropium/Albuterol Sulfate 3 ML AMPUL.NEB INHALATION (17:02)
[2018-10-31 17:11] LABS: Bedside Glucose 142 mg/dL (70-110)
== END 2018-10-31 18:25 | disposition home or self-care (01) ==
LOC: SDC 12:22
PROVIDERS: Family Provider Family Medicine; PCP Family Medicine; Referring Provider Anesthesiology Pain Medicine; Visit Provider Anesthesiology Pain Medicine
PROC: (CPT 22514; principal; 2018-10-31 13:30)
DX: M80.08XA Age-related osteoporosis with current pathological fracture, vertebra(e), initial encounter for fracture (principal); G89.29 Other chronic pain; E78.00 Pure hypercholesterolemia, unspecified; E11.9 Type 2 diabetes mellitus without complications; F32.9 Major depressive disorder, single episode, unspecified; F41.9 Anxiety disorder, unspecified; E06.9 Thyroiditis, unspecified; I48.91 Unspecified atrial fibrillation; I45.10 Unspecified right bundle-branch block; M19.90 Unspecified osteoarthritis, unspecified site; Z79.4 Long term (current) use of insulin; Z79.899 Other long term (current) drug therapy; Z87.891 Personal history of nicotine dependence
CPT/HCPCS: 22514; 72020; 76000; 82962; 94640; J7120; J2405

== ENCOUNTER → 2018-11-24 12:26 | Outpatient (CLI) | payer MEDICARE, OTHER, SELFPAY ==
[2018-10-31 13:08] VITALS: BMI 35.5
--- NOTE | 2018-11-24 12:30 | RAD_ITS ---
STUDY: X-RAY - LEFT KNEE REASON FOR EXAM: Male, 68 years old. Pain TECHNIQUE: 4 view(s) of the knee. COMPARISON: None. FINDINGS: There is no evidence of fracture or dislocation. There are no significant degenerative changes. There are no radiodense foreign bodies. RAD/Knee 4 or More Views IMPRESSION: No fracture or dislocation. Electronically Signed: Cecilio Wray, at 15:07 EDT Tel , Service support ,
== END ==
PROVIDERS: Family Provider Family Medicine; PCP Family Medicine; Referring Provider Anesthesiology Pain Medicine; Visit Provider Anesthesiology Pain Medicine
DX: M25.562 Pain in left knee (principal)
CPT/HCPCS: 73564

== ENCOUNTER 2019-03-05 10:00 | Outpatient (RCR) | payer MEDICARE, OTHER, SELFPAY ==
[2018-10-31 13:08] VITALS: BMI 35.5
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
--- NOTE | 2019-01-22 09:50 | HP.PTREVAL_ITS ---
Jessi Olguin MD, It has been my pleasure to treat ARMIN CHAND over the last 10 visits for LUMBAR DDD/S/P MULTIPLE COMPRSSION FX'S/KYPHOPLASTY/LEFT KNEE CONT/WEAKNESS. Please see the progress note below for an update on the physical therapy plan of care! Subjective: PATIENT REPORTS HE IS WALKING BETTER. STATES HE STILL HAS SOME TROUBLE ON THE STEPS IN AND OUT OF THE HOUSE. STATES HE IS EXTRA CAREFUL THERE. STATES HE IS USING A CANE OR WALKER AT ALL TIMES. USES WALKER FOR PROLONGED DISTANCES. PATIENT REPORTS HE JUST GETS PAIN EVERY ONCE IN A GREAT WHILE NOW. PATIENT REPORTS HE HASN'T HAD ANY FALLS IN ABOUT 3 WEEKS BUT HE HAS FALLEN ABOUT 3 TIMES SINCE STARTING PT. ALL 3 FALLS WERE IN FRONT OF HIS HOUSE AND 2 TIMES WERE ON THE STEPS. REPORTS HIS LEFT KNEE WAS GIVING OUT BUT HASN'T IN THE LAST FEW WEEKS. KEEPS FORGETTING ABOUT THE KNEE BRACE SO HASN'T TRIED USING IT YET. STATES HE LIKES THE THERAPY AND IT HAS HELPED A LOT. SAW DR. OLGUIN LAST WEEK. SAW DR. FRANCISCO ALVAREZ. OFF OF PAIN MEDICATION AT THIS POINT. STATES THE CORTISONE SHOT IN HIS KNEE AWHILE BACK REALLY HELPED THE PAIN BUT KNEE STILL GIVES OUT. Objective/Function: PATIENT IS MAKING PROGRESS TOWARD ALL PT GOALS. COMMUNICATES A GOOD UNDERSTANDING OF THE SAFEST WAY TO DO STEPS AT HOME UNDER HIS CURRENT CIRCUMSTANCES BUT GRANDSON PLANS TO BUILD HIM A RAMP SOON POSSIBLE. HE DOES NOT HAVE A HEP YET BUT PLANS TO JOIN [employer] TO TRANSITION TO INDEP GYM EX SOON WE GIVE HIM THE OK. HAS ALREADY JOINED. THIS PT RECOMMENDS WALKER AT ALL TIMES AT THIS POINT FOR SAFETY AND BALANCE ASSESSMENT TEST BY [facility] PT OR JESSI CROCKETT DPT WITH PLAN TO FOLLOW. UPON EXAM TODAY HE NOW DEMONSTRATES INDEP AND SAFE GAIT ON LEVEL SURFACES 300 FEET X 2 WITH FRONT WHEELED WALKER. HE IS ABLE TO SAFELY NAVIGATE OVER MULTIPLE RAISED THRESHOLDS AND FROM SMOOTH TO CARPETED ELIJAH. HE IS UNABLE TO STAND FULLY ERECT. LUMBAR FLEXION MVMT LOSS IS MODERATE, EXT - MAJOR. NIESHA LE STRENTH TESTS STRONG MID-RANGE WITH MMT'ING EXCEPT HIPS GRADED 4-/5 AND LEFT ANKLE 4-/5, CORE STRENGTH IS POOR. LUMBAR OSWESTRY HAS IMPROVED FROM 32 TO 18 SINCE INITIAL EVAL. Plan Plan: CONT PT 2X'S A WK X 6 MORE VISITS. *WRITTEN HEP*. *SAFE GYM EX'S*. *HIGH FALL RISK* USE GAIT BELT. GAIT TRAINING. BALANCE ACTIVITIES. POSTURE CORRECTION/STRENGTHENING, INSTRUCTION IN APPROPRIATE BODY MECHANICS AND ACTIVITY MODIFICATIONS. DLS WITH A NEUTRAL SPINE TOLERATED. NIESHA LE ROM, STRETCHING AND STRENGTHENING. HEP INSTRUCTION. *MINIMAL LIFTING > 10 LBS, BENDING, PUSHING, PULLING, TWISTING AND OVER HEAD EXTENSION. SECONDARY CHART FOR BALANCE ASSESSMENT TEST ORDERED BY DR. SINGH. Goals Goal 1:: DECREASE C/O BACK AND LE SX'S. Goal Time Frame: 6-8 Weeks Goal Progress: Goal Met Goal 2:: IMPROVE SITTING, TRANSFER, BALANCE, STANDING, WALKING, ADL AND SLEEP FUNCTION Goal Time Frame: 6-8 Weeks Goal Progress: Progressing Goal 3:: INSTRUCT IN PROPHYLAXIS Goal Time Frame: 6-8 Weeks Goal Progress: Progressing Anticipated Interventions Patient/Client Instruction: Educate patient on: Condition, Plan of Care, Risk Factors, Benefits of Fitness Program For the Purpose of:: To improve self management Therapeutic Exercise to Include: Strength training, Body mechanics, Postural training, Gait and locomotor training, Active ROM, Dynamic Lumbar Stabilization For the Purpose of:: To decrease pain, To improve muscle performance and motor function, To increase tolerance to activity/condition/position, To improve ability of physical actions for home/community/work/leisure, To improve gait and locomotor functions Please do not hesitate to contact me at [phone] by phone or if you have questions or concerns regarding this new plan of care! Sincerely, Shagufta Stafford, PT, Cert MDT
--- NOTE | 2019-01-30 13:51 | HP.PTEVAL2 ---
Patient's Visit Information ARMIN CHAND is a 68 year old M referred to Physical Therapy by Raffaele Olguin MD with a diagnosis of L/S radiculopathy. Date of Evaluation: 01/30/19 Physical Therapist: Raffaele Sosa, DPT, OCS, CSCS - Visit Plan Frequency: 1x/Week Duration: 4-6 Weeks Plan: Neurocom balance assessment and then treat likely 2x/week x2-4 for balance ex instruct. gait training. - Subjective Findings: Seeing other therapist for L/S symptoms and in middle of treatments, see notes. Is here today for balance problems. No falls lately. Does nto feel steady all the time. NO spinning. No neuropathy to his knowledge. Uses wh walker for outside the house. House is too small at home to use it and he does nto feel dangerous. Laminectomy was in October and has not been able to get in tub and could not get up. No pain, surgery helped that. Dr Garcia has given him pain pills but does nto take them. Has not steps to basement which he does not trust himself on, 15 steps. Sleep is not great due to not tired. Spends day watching TV. Iss not very active. Trouble getting out of chair in doctor's office. - Objective Objective: Walks without AD when forced without much ankkle movement L. Trasnfers out of chair with UE I but needs mod A without arms on the chair. Steps are reciprocal up with two rails pulling adn very weak legs, coming down needs two rails and CGA tending to use R. Poor movement L ankle due to h/o skin lesions and surgeies adn scar tissue, 15-20 total degrees of DF/PF adn ev/in and tightness into DF at PF at 15 L. R ankle aROM WFL. R strength 4- ankel and L is 3+. Knee strength 4/5 flexiona dn ext B. Hip strength 3/5 abd and ext and 3+ hip flexion and adduction. Diminished sensation L LE especially over scarring in anterior [place]. reflexes 0/2 patella and achilles. Coordination to reciprocal toe and heel tap is poor. Gait pattern is neuropathic and short steps with foot slap. - Balance Scores Functional Gait Assessment Score: 16 % Disability: 46.6700 CATSIB Score (Max score 120 seconds): 32 - Goals Goal 1:: FGA to diminsh fall risk. Goal Time Frame: 4-6 Weeks Goal 2:: Up and down steps reciprocal with one rail Goal Time Frame: 4-6 Weeks Goal 3:: Patient feel 50% better in balance and be I in appropriate HEP to minimize future problems. Goal Time Frame: 4-6 Weeks - Rehabilitation Potential Physical Therapy Diagnosis: L/S radiculaopathy and balance/mobility problems. Rehabilitation Potential: Questionable - Anticipated Interventions Patient/Client Instruction: Educate patient on: Condition, Plan of Care For the Purpose of:: To improve muscle performance and motor function, To improve gait and locomotor functions, To improve balance Therapeutic Exercise to Include: Strength training, Balance training, Coordination For the Purpose of:: To improve muscle performance and motor function, To improve ability of physical actions for home/community/work/leisure, To improve gait and locomotor functions Thank you for the opportunity to evaluate your patient. For Medicare and Medicare HMO plans, please review the plan of care and approve it. It will need to be FAXED BACK to us at [phone] for Medicare purposes. For Medicare only, by signing this I certify the plan of care. Please let me know if there are questions or concerns regarding this plan of care. Physician Signature: Date:
--- NOTE | 2019-02-13 09:21 | HP.PTCOM ---
PT Communication Note 02/13/[address] Raffaele Olguin MD , Thank you for the referral of Chase Turcios to out clinic. He was tested on our NeuroCom Balance Machine today and enclosed are the patients test results. On the Sensory Organization Test ( SOT), the pt had good use of his somatosensory and visual systems to help him maintain his balance. He did not use his vestibular system very well as all to help him maintain his balance. His overall composite score was 46 which is below age related norms. His strategy analysis is more ankle dominant which is higher level and his center of gravity alignment is with in normal limits. On the Motor Control Test ( MCT), the patient has decreased overall reaction time for his age. At this point in time we will work on vestibular inputs and functional balance during our therapy sessions Sincerely, MIKE Carrasquillo Contact Information
--- NOTE | 2019-02-16 09:35 | HP.PTREVAL_ITS ---
Raffaele Olguin MD, It has been my pleasure to treat ARMIN CHAND over the last 16 visits for LUMBAR DDD/S/P MULTIPLE COMPRSSION FX'S/KYPHOPLASTY/LEFT KNEE CONT/WEAKNESS. Please see the progress note below for an update on the physical therapy plan of care! Subjective: MOST OF THE TIME THE PAIN DOESN'T BOTHER ME. PATIENT STATES IT IS REMARKABLE HOW MUCH BETTER HIS BACK PAIN IS - ALMOST 100%. HE ALSO REPORTS HIS STRENGTH AND BALANCE ARE GETTING BETTER BUT HE IS STILL HAVING TROUBLE WITH STEPS. REPORTS HIS LEFT KNEE STILL FEELS WEAK SOMETIMES BUT HE CAN TELL WHEN IT IS GOING TO GIVE OUT SO HE STOPS. PATIENT REPORTS HIS GOAL IS STILL TO GET INDEP WITH A GYM PROGRAM. PATIENT REPORTS HE REALLY FEELS LIKE THE MACHINES IN THE GYM ARE HELPING HIM BUT HE DOESN'T FEEL READY TO DO THEM ON HIS OWN YET. PATIENT REPORTS HE WANTS TO CONTINUE PT SO HE CAN KEEP RIGHT ON DOING IT ON HIS OWN. Objective/Function: PATIENT IS TOLERATING STRENGTHENING WELL AND WE ARE STILL WORKING ON A SAFE GYM PROGRAM FOR HIM. HE IS HAVING DIFFICULTY GETTING ON/OFF SOME OF THE MACHINES AND DOES NOT KNOW HOW TO INDEP'LY SET THEM YET. PATIENT IS MAKING PROGRESS TOWARD ALL PT GOALS. COMMUNICATES A GOOD UNDERSTANDING OF THE SAFEST WAY TO DO STEPS AT HOME UNDER HIS CURRENT CIRCUMSTANCES BUT [employer]ANDSON IS STILL WORKING ON HOW TO BUILD HIM A RAMP. HE DOES HAVE A HEP FROM HOME PT BUT PLANS TO JOIN [employer] TO TRANSITION TO INDEP GYM EX SOON WE GIVE HIM THE OK. STATES HE DOES NOT DO HIS HOME EX'S BUT HIS TRIES TO GET HIM TO DO THEM. HAS ALREADY JOINED. THIS PT RECOMMENDS WALKER AT ALL TIMES FOR SAFETY. UPON EXAM TODAY HE DEMONSTRATES INDEP AND SAFE GAIT ON LEVEL SURFACES 300 FEET X 2 WITH FRONT WHEELED WALKER. HE IS ABLE TO SAFELY NAVIGATE OVER MULTIPLE RAISED THRESHOLDS AND FROM SMOOTH TO CARPETED ELIJAH. HE IS STILL UNABLE TO STAND FULLY ERECT. LUMBAR FLEXION MVMT LOSS IS MODERATE, EXT - MAJOR. NIESHA LE STRENTH TESTS STRONG MID-RANGE WITH MMT'ING EXCEPT HIPS GRADED 4- /5 AND LEFT ANKLE 4-/5, CORE STRENGTH IS POOR. LUMBAR OSWESTRY HAS IMPROVED FROM 32 TO 18 AND NOW 7 SINCE INITIAL EVAL. Plan Plan: CONT PT 2X'S A WK X 6 MORE VISITS. *WRITTEN HEP*. *SAFE GYM EX'S*. *HIGH FALL RISK* USE GAIT BELT. GAIT TRAINING. BALANCE ACTIVITIES. POSTURE CORRECTION/STRENGTHENING, INSTRUCTION IN APPROPRIATE BODY MECHANICS AND ACTIVITY MODIFICATIONS. DLS WITH A NEUTRAL SPINE TOLERATED. NIESHA LE ROM, STRETCHING AND STRENGTHENING. HEP INSTRUCTION. *MINIMAL LIFTING > 10 LBS, BENDING, PUSHING, PULLING, TWISTING AND OVER HEAD EXTENSION. SECONDARY CHART FOR BALANCE ASSESSMENT TEST ORDERED BY DR. SINGH. Goals Goal 1:: DECREASE C/O BACK AND LE SX'S. Goal Time Frame: 6-8 Weeks Goal Progress: Goal Met Goal 2:: IMPROVE SITTING, TRANSFER, BALANCE, STANDING, WALKING, ADL AND SLEEP FUNCTION Goal Time Frame: 6-8 Weeks Goal Progress: Progressing Goal 3:: INSTRUCT IN PROPHYLAXIS Goal Time Frame: 6-8 Weeks Goal Progress: Progressing Goal 4:: Walk with more of a normal gait pattern with upright posture with a FWW with SBA Goal Time Frame: 2-4 Weeks Goal 5:: Increase vestibular input and be able to stand on blue foam with EC X 30 seconds without LOB Goal Time Frame: 2-4 Weeks Anticipated Interventions Patient/Client Instruction: Educate patient on: Condition, Plan of Care, Risk Factors, Benefits of Fitness Program For the Purpose of:: To improve self management Therapeutic Exercise to Include: Strength training, Body mechanics, Postural training, Gait and locomotor training, Active ROM, Dynamic Lumbar Stabilization For the Purpose of:: To decrease pain, To improve muscle performance and motor function, To increase tolerance to activity/condition/position, To improve ability of physical actions for home/community/work/leisure, To improve gait and locomotor functions Please do not hesitate to contact me at [phone] by phone or if you have questions or concerns regarding this new plan of care! Sincerely, Shagufta Stafford, PT, Cert MDT
--- NOTE | 2019-03-05 10:29 | HP.PTDCS(2) ---
HP - PT D/C Summary (2) It has been my pleasure to treat ARMIN CHAND under orders from Raffaele Olguin MD, for the diagnosis of L/S radiculopathy for a total of 6 visit(s). Discharge Date: 03/05/19 Please see the following information for a summary of their discharge status. - Subjective Subjective: pt feels like his balance is improved. Fell last week on the step into the house where there is two steps with a chair to hold onto initially then a bar that is 4 feet inside that he reaches for. Otherwise doing rather well. Uses cane around the house. - Overall Improvement % Improvement: 50 - Objective Objective/Function/Assessment: No change to FGA from initial visit to today despite hard work. Trasnfer out of chair is still requiring UE due to weakness in LE. Steps require B UE pull. OVERALL NO LARGE IMPROVEMENTS WITH BAALNCE LIKELY DUE TO NEUROPATHY. NEEDS TO EX RETIREMENT AND HE UNDERSTANDS THIS AND WILL REVIEW THIS WITH HIS BACK THERAPIST NEXT. REALIZES THE NEED TO USE WALKER AND OR CANE AND SIT DOWN WHEN HIS LEGS START TO GET TIRED. - Goals Patient Goals: Other Other Goals: balance test Goal 1:: FGA to diminsh fall risk. Goal Progress: Not Progressing Goal 2:: Up and down steps reciprocal with one rail Goal Progress: Not Progressing Goal 3:: Patient feel 50% better in balance and be I in appropriate HEP to minimize future problems. Goal Progress: Goal Met - Plan Plan: D/C BALANCE CHART. - D/C Information Discharge Comments: D/C DUE TO LACK OF IMPROVEMENT WITH BALANCE. WILL CONTINUE WITH GYM EX PER BACK THERAPIST AND REALIZES THE NEED TO USE HIS WALKER CANE AT ALL TIMES. PURSUING [employer] AND RAMP FOR STEPS AT HOME THROUGH HIS SON. If there are questions or concerns regarding this patient's physical therapy, please feel free to call me at [phone]. Thank you for the referral of this patient. Sincerely, Raffaele Sosa, DPT, OCS, CSCS
--- NOTE | 2019-03-05 11:05 | HP.PTDCSUM_ITS ---
HP - PT D/C Summary It has been my pleasure to treat ARMIN CHAND under orders from Jessi Olguin MD, for the diagnosis of LUMBAR DDD/S/P MULTIPLE COMPRSSION FX'S/KYPHOPLASTY/LEFT KNEE CONT/WEAKNESS for a total of 21 visit(s). Discharge Date: 03/05/19 Please see the following information for a summary of their discharge status. - Subjective Subjective: PATIENT REPORTS HE DID GOOD WITH THE MACHINES LAST VISIT. STATES THAT WITH A LITTLE BIT OF HELP FROM HIS HE CAN SET THEM UP. PRESENT TODAY AND AGREEABLE. NO RAMP AT HOME YET. PATIENT REPORTS THAT THE BACK PAIN THAT HE CAME HERE WITH IS GONE. - Overall Improvement % Improvement: 100 - Objective Objective/Function: ALL GOALS MET. DEFERRED GAIT RECOMMENDATIONS TO JESSI CROCKETT PT. JUST CAME FROM ASSESSMENT AND DISCHARGE WITH JESSI CROCKETT PT. UPON EXAM T REGINE HE IS STILL UNABLE TO STAND FULLY ERECT. LUMBAR FLEXION MVMT LOSS IS MODERATE, EXT - MAJOR. NIESHA LE STRENTH TESTS STRONG MID-RANGE WITH MMT'ING EXCEPT LEFT ANKLE 4-/5, CORE STRENGTH IS POOR. LUMBAR OSWESTRY HAS IMPROVED FROM 32 TO 18 THEN 7 AND NOW 8 SINCE INITIAL EVAL. - Goals Goal 1:: DECREASE C/O BACK AND LE SX'S. Goal Progress: Goal Met Goal 2:: IMPROVE SITTING, TRANSFER, BALANCE, STANDING, WALKING, ADL AND SLEEP FUNCTION Goal Progress: Goal Met Goal 3:: INSTRUCT IN PROPHYLAXIS Goal Progress: Progressing Goal 4:: Walk with more of a normal gait pattern with upright posture with a FWW with SBA Goal 5:: Increase vestibular input and be able to stand on blue foam with EC X 30 seconds without LOB - Plan Plan: D/C. PATIENT IS AGREEABLE. - D/C Information If there are questions or concerns regarding this patient's physical therapy, please feel free to call me at [phone]. Thank you for the referral of this patient. Sincerely, Shagufta Stafford, PT, Cert MDT
== END 2019-03-05 19:00 | disposition home or self-care (01) ==
LOC: PT 10:00
PROVIDERS: Family Provider Family Medicine; PCP Family Medicine; Visit Provider Family Medicine
DX: M51.36 Other intervertebral disc degeneration, lumbar region (principal); S32.000D Wedge compression fracture of unspecified lumbar vertebra, subsequent encounter for fracture with routine healing; Z47.89 Encounter for other orthopedic aftercare; S80.02XD Contusion of left knee, subsequent encounter; R29.898 Other symptoms and signs involving the musculoskeletal system
CPT/HCPCS: 97110; 97162; 97530; 97750

== ENCOUNTER 2019-08-16 11:35 | Emergency (ER) | payer MEDICARE, OTHER, SELFPAY ==
[2018-10-31 13:08] VITALS: BMI 35.5
[2019-08-16 11:36] VITALS: BP 133/87; PULSE 92; RESP 20; TEMP 37.1; O2SAT 97; BMI 37.1
[2019-08-16 11:49] VITALS: O2SAT 95
[2019-08-16 11:51] VITALS: BP 120/81; PULSE 97; RESP 19; O2SAT 95
--- NOTE | 2019-08-16 11:53 | EKG12_ITS ---
Test Reason : SOB Blood Pressure : / mmHG Vent. Rate : 091 BPM Atrial Rate : 416 BPM P-R Int : 000 ms QRS Dur : 140 ms QT Int : 374 ms P-R-T Axes : 000 -11 022 degrees QTc Int : 460 ms Atrial fibrillation Right bundle branch block Septal infarct , age undetermined Abnormal ECG Confirmed by CHAR WARD ([id number]), book editor DAWIT ARANA ([id number]) on 08/20/2019 9:24:45 AM Referred By: VALDEZ Confirmed By:CHAR WARD
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
[2019-08-16] MEDS: Ipratropium/Albuterol Sulfate 3 ML AMPUL.NEB INHALATION (12:05)
[2019-08-16] MEDS: Albuterol 2.5 MG/3 ML VIAL.NEB. INHALATION ×3 (12:05)
[2019-08-16 12:06] VITALS: PULSE 100; RESP 18
[2019-08-16 12:15] LABS: Absolute Neutrophil Count 6.1 X10^3/uL (2.0-7.7); Basophil# 0.03 X10^3/uL; Basophil% 0.3 % (0-1); Eosinophil# 0.14 X10^3/uL; Eosinophils% 1.6 % (0-5); Hematocrit 41.3 % (40-54); Hemoglobin 13.7 g/dL (13.0-16.5); Mean Corp Hgb Conc 33.2 g/dL (32-36); Mean Corpuscular Hgb 30.4 pg (27.0-32.0); Mean Corpuscular Volume 91.6 fL (80-94); Mean Platelet Vol. 12.1 fl (6.2-12.0); Monocyte# 0.94 X10^3/uL; Monocyte% 10.6 % (0-10); NRBC Flagged by Analyzer 0 % (0-5); Neutrophil # 6.08 X10^3/uL (2.7-7.7); Neutrophil % 68.6 % (47-70); Platelet Count 117 K/mm3 (150-450); RBC Distribution Width CV 14.2 % (11.6-14.6); RBC Distribution Width SD 47.6 fl (35.1-43.9); Red Blood Count 4.51 M/mm3 (4.6-6.2); White Blood Count 8.9 K/mm3 (4.4-11.0)
--- NOTE | 2019-08-16 12:27 | RAD_ITS ---
STUDY: X-RAY CHEST REASON FOR EXAM: Male, 69 years old. Shortness of breath and cough TECHNIQUE: Single AP portable view of the chest. COMPARISON: 09/12/2017 FINDINGS: EKG leads overlie the chest. Stable elevation of the left hemidiaphragm There are interstitial fibrotic changes of the lungs. There is no demonstrated pleural abnormality. Normal size heart. Normal mediastinum and jewel. Normal visualized pulmonary arteries. Normal visualized aortic arch and descending thoracic aorta. There are diffuse degenerative changes of the visualized thoracic spine. Normal visualized ribs, clavicles, and shoulders. There is no demonstrated abnormality of the visualized soft tissue structures of the upper abdomen. RAD/Chest 1 View (Portable) IMPRESSION: Degenerative changes, as described above. No demonstrated acute cardiopulmonary process. Electronically Signed: Adiel Garcia MD at 12:43 EDT , Service support ,
[2019-08-16 12:35] LABS: Anion Gap 3 (5-15); BUN 20 mg/dL (7-18); Calcium,Total 9.3 mg/dL (8.5-10.1); Chloride 107 mmol/L (98-107); Creatinine, Serum 0.91 mg/dL (0.70-1.30); EST Glomerular Filtration Rate 87 mL/min (>60); Est Glom Filt Rate - Afr Amer 106 mL/min (>60); Estimated Creatinine Clearance 91.41 ml/min; Glucose 200 mg/dL (74-106); Potassium 5.1 mmol/L (3.5-5.1); Sodium Level 136 mmol/L (136-145)
[2019-08-16 12:40] LABS: BNP,B-Type NATRIURETIC PEPTIDE 50.9 pg/mL (0-100)
[2019-08-16 12:45] VITALS: BP 146/94; PULSE 104; RESP 28; TEMP 36.7; O2SAT 95
[2019-08-16 13:18] VITALS: BP 136/71; PULSE 95; RESP 25; O2SAT 94
== END 2019-08-16 13:19 | disposition home or self-care (01) ==
PROVIDERS: Emergency Provider Physician Assistant Medical; PCP Family Medicine
DX: E11.65 Type 2 diabetes mellitus with hyperglycemia (principal); E78.5 Hyperlipidemia, unspecified; E03.9 Hypothyroidism, unspecified; J44.1 Chronic obstructive pulmonary disease with (acute) exacerbation; Z87.891 Personal history of nicotine dependence; Z79.4 Long term (current) use of insulin
CPT/HCPCS: 71045; 80048; 83880; 84484; 85025; 93005; 94640; 99251; 99283; A4216; G0463

== ENCOUNTER → 2019-12-15 06:46 | Outpatient (CLI) | payer MEDICARE, OTHER, SELFPAY ==
--- NOTE | 2019-12-15 14:06 | PFT ---
INTRODUCTION: The patient is a 69-year-old male that presents for pulmonary function studies secondary to a diagnosis of COPD. Respiratory therapy reports good patient effort. Bronchodilators were used during testing. INTERPRETATION: Forced expiration spirometry demonstrates no evidence of a large airways obstructive ventilatory defect. There was no significant response to aerosolized bronchodilators spirograms are of good quality and plateau normally. Body plethysmography was performed and reveals a decreased TLC to 5.43 L, 71% of predicted, indicative of a mild restrictive ventilatory impairment. Diffusing capacity by single breath CO is reduced at 61% of predicted. IMPRESSION: Mild restrictive ventilatory impairment with symmetric reduction in diffusing capacity. There are no previous pulmonary function studies available for comparison.
== END ==
PROVIDERS: PCP Family Medicine; Referring Provider Family Medicine; Visit Provider Family Medicine
DX: J44.9 Chronic obstructive pulmonary disease, unspecified (principal)
CPT/HCPCS: 94060; 94726; 94729

== ENCOUNTER → 2020-01-11 10:20 | Outpatient (CLI) | payer MEDICARE, OTHER, SELFPAY ==
[2020-01-11 12:52] LABS: Absolute Lymphocyte Count 2.46 X10^3/uL (0.83-4.51); Absolute Neutrophil Count 4.3 X10^3/uL (2.0-7.7); Basophil# 0.02 X10^3/uL; Basophil% 0.3 % (0-1); Eosinophil# 0.12 X10^3/uL; Eosinophils% 1.5 % (0-5); Hematocrit 41.1 % (40-54); Hemoglobin 13.3 g/dL (13.0-16.5); Lymphocyte # 2.46 X10^3/ul (4.0); Lymphocyte % 31.6 % (19-41); Mean Corp Hgb Conc 32.4 g/dL (32-36); Mean Corpuscular Hgb 29.8 pg (27.0-32.0); Mean Corpuscular Volume 91.9 fL (80-94); Mean Platelet Vol. 12.4 fl (6.2-12.0); Monocyte# 0.83 X10^3/uL; Monocyte% 10.7 % (0-10); NRBC Flagged by Analyzer 0 % (0-5); Neutrophil # 4.31 X10^3/uL (2.7-7.7); Neutrophil % 55.4 % (47-70); Platelet Count 170 K/mm3 (150-450); RBC Distribution Width CV 13.6 % (11.6-14.6); RBC Distribution Width SD 46.1 fl (35.1-43.9); Red Blood Count 4.47 M/mm3 (4.6-6.2); White Blood Count 7.8 K/mm3 (4.4-11.0)
[2020-01-11 13:09] LABS: ALB/GLOB Ratio 0.8 RATIO (0.9-2.4); AST(SGOT) 16 U/L (15-37); Alanine Aminotransfer ALT/SGPT 20 U/L (16-61); Albumin, Serum 3.3 g/dL (3.2-5.0); Alkaline Phosphatase 85 U/L (45-117); Anion Gap 7 (5-15); BUN 19 mg/dL (7-18); BUN/Creat Ratio 22.7 RATIO (10-20); Calcium,Total 9.4 mg/dL (8.5-10.1); Chloride 106 mmol/L (98-107); Cholesterol 124 mg/dL (200); Creatinine, Serum 0.84 mg/dL (0.70-1.30); EST Glomerular Filtration Rate 96 mL/min (>60); Est Glom Filt Rate - Afr Amer 116 mL/min (>60); Globulin 4.4 g/dL (2.2-4.2); Glucose 137 mg/dL (74-106); High Density Lipoprotein 43 mg/dL; Magnesium 2.1 mg/dL (1.6-2.6); PSA,Total - Annual Screen 1.39 ng/mL (0.00-4.00); Potassium 3.8 mmol/L (3.5-5.1); Protein, Total 7.7 g/dL (6.4-8.2); Sodium Level 139 mmol/L (136-145); Thyroid Stim Hormone (TSH) 0.09 uIU/mL (0.358-3.74); Triglycerides 71 mg/dL; Very Low Density Lipoprotein 14 mg/dL (5-40)
[2020-01-11 13:12] LABS: Vitamin D,25 Hydroxy 38.4 ng/mL
[2020-01-11 13:16] LABS: Hemoglobin A1c 7.3 % (3.8-5.6)
[2020-01-12 11:33] LABS: PTHIN 32.6 pg/mL (18.4-80.1)
== END ==
PROVIDERS: PCP Family Medicine; Visit Provider Family Medicine
DX: Z00.00 Encounter for general adult medical examination without abnormal findings (principal); E11.49 Type 2 diabetes mellitus with other diabetic neurological complication; E03.9 Hypothyroidism, unspecified; E55.9 Vitamin D deficiency, unspecified; M81.0 Age-related osteoporosis without current pathological fracture; J44.9 Chronic obstructive pulmonary disease, unspecified; Z12.5 Encounter for screening for malignant neoplasm of prostate
CPT/HCPCS: 36415; 80053; 80061; 82306; 83036; 83735; 83970; 84153; 84439; 84443; 85025; G0103

== ENCOUNTER → 2020-01-20 12:44 | Outpatient (CLI) | payer MEDICARE, OTHER, SELFPAY ==
--- NOTE | 2020-01-20 12:45 | CT_ITS ---
STUDY: LOW DOSE CT LUNG CANCER SCREENING REASON FOR EXAM: Male, 69 years old. LUNG CANCER SCREEN. 1PPD X 40 YEARS. COPD RADIATION DOSAGE (If Supplied By Facility): CTDIvol = ( 3.40 ) mGy, DLP = ( 112.74 ) mGycm TECHNIQUE: No contrast was administered. Low dose technique was utilized (average mAS-38 and kVp 120). 1.25 mm axial source images with a slice interval of 1.25-mm were reconstructed in lung windows. 2.5 mm axial source images with a slice interval of 2.5-mm were reconstructed in lung windows. 5.0 mm axial source images with a slice interval of 5.0-mm were reconstructed in soft tissue windows. Nodule measured using lung windows on PACS and/or independent workstation with automated measurement of minimum and maximum diameter. Nodule measurement reported as average diameter rounded to the nearest whole number. Growth is defined as an increase ins size of greater than 1.5 mm. COMPARISON: 11/22/2009 FINDINGS: Stable elevation of the left hemidiaphragm. Chronic interstitial changes in both lung gaytan with nonspecific pleural thickening in the apices. No organized infiltrate. There are scattered groundglass opacifications in both lung gaytan. No suspicious noncalcified mass or nodule. Calcified coronary vessels noted Degenerative bony changes CT/Low Dose CT Lung Screening IMPRESSION: Lung-RADS category 2 - Continue annual screening with LDCT in 12 months. IMPORTANT NOTES FOR USE: ACR Lung-RADS Version 1.0 Assessment Categories Release Date: September 28, 2013 Category: Coded 0-4 bases on nodule(s) with highest degree of suspicion. Negative screen is defined as categories 1 and 2; a positive screen is defined as categories 3 and 4. Category 3 and 4A nodules that are unchanged on interval CT should be coded as category 2, and individuals returned to screening in 12 months. Category 4X: Category 3 or 4 nodules with additional imaging findings that increase the suspicion of lung cancer, such as spiculation, GGN that doubles in size in 1 year, enlarged lymph notes, etc. Category Modifiers: S (significant finding unrelated to lung cancer) and C (prior history of treated lung cancer) may be added to the 0-4 Lung-RADS Electronically Signed: Adiel Garcia MD at 13:26 EDT , Service support ,
== END ==
PROVIDERS: PCP Family Medicine; Referring Provider Family Medicine; Visit Provider Family Medicine
DX: M81.0 Age-related osteoporosis without current pathological fracture (principal); J44.9 Chronic obstructive pulmonary disease, unspecified; F17.210 Nicotine dependence, cigarettes, uncomplicated
CPT/HCPCS: G0297

== ENCOUNTER → 2020-01-27 09:50 | Outpatient (CLI) | payer MEDICARE, OTHER, SELFPAY ==
--- NOTE | 2020-01-27 09:58 | BD_ITS ---
STUDY: DUAL ENERGY X-RAY ABSORPTIOMETRY / DXA REASON FOR EXAM: Male, 69 years old. DIABETIC- ON MEDS -- HX OF SMOKING- QUIT 10 YRS AGO -- TAKES DIURETIC -- TAKES MULTIVITAMIN -- DOES NO EXERCISE -- HX OF MULTIPLE COMPRESSION FX''S WITH KYPHOPLASTY -- VÍCTOR OF 2 INCHES TECHNIQUE: Bone Mineral Density (BMD) measurements of lumbar spine and bilateral hips were obtained. COMPARISON: Comparison is made with prior examination dated 05/14/2013. FINDINGS: Lumbar Spine (L1-L4): g/cm2 (1.301) / T-score (0.8) / Z-score (1.4) Findings are suggestive of normal bone density with a low fracture risk. Left Femur Total: g/cm2 (0.893) / T-score (-1.4) / Z-score (-0.7) Left Femoral Neck: g/cm2 (0.940) / T-score (-1.0) / Z-score (0.3) Right Femur Total: g/cm2 (0.875) / T-score (-1.6) / Z-score (-0.8) Right Femoral Neck: g/cm2 (0.886) / T-score (-1.4) / Z-score (-0.1) The T-Scores on the most recent prior examination were: Lumbar Spine (L1-L4): There has been improvement of bone density since the previous examination. Left Femur Total: which represents a worsening of 9%. Right Femur Total: which represents a worsening of 12.1%. BD/Dexa Bone Density Study IMPRESSION: The patient is considered osteopenic as outlined below according to World [employer] Organization (WHO) criteria with a moderate fracture risk. There has been worsening of bone density since the previous examination. Reference Information: The T-score is the number of standard deviations above or below the standard which is normal for young adults at their peak bone mineral density. The World Health Organization (WHO) interprets the T-scores as follows: Above -1 Normal bone density Between -1 and -2.5 Osteopenia Equal to / or below -2.5 Osteoporosis As a practical clinical guideline, osteopenia may be graded as follows: Mild -1 through -1.5 Moderate -1.6 through -2.0 Severe -2.1 through -2.4 The Z-score is the number of standard deviations above or below age-matched controls. A Z-score of less than -1.5 would be considered abnormal. References: 1. NIH Osteoporosis and Related Bone Diseases http://www.osteo.org 2. International Society for Clinical Densitometry http://www.iscd.org 3. National Osteoporosis Foundation http://www.nof.org Electronically Signed: Scar Alvarez, at 15:37 EDT , Service support ,
== END ==
PROVIDERS: PCP Family Medicine; Referring Provider Family Medicine; Visit Provider Family Medicine
DX: M81.0 Age-related osteoporosis without current pathological fracture (principal)
CPT/HCPCS: 77080

== ENCOUNTER 2020-02-12 19:01 | Inpatient (IN) | payer MEDICARE, OTHER, SELFPAY ==
[2020-02-12] VITALS (8 sets, daily range): BP systolic 117–140; BP diastolic 67–77; PULSE 96–109; RESP 15–26; TEMP 36.2–37.1; O2SAT 93–99; BMI 37.5
--- NOTE | 2020-02-12 19:38 | EKG12_ITS ---
Test Reason : DYSRHYTHMIA Blood Pressure : / mmHG Vent. Rate : 098 BPM Atrial Rate : 058 BPM P-R Int : 000 ms QRS Dur : 148 ms QT Int : 332 ms P-R-T Axes : 000 -07 023 degrees QTc Int : 423 ms Atrial fibrillation Right bundle branch block Abnormal ECG Confirmed by DEE BLAS, MARTHA ([id number]), publication editor CAMPOS PIERCE ([id number]) on 02/17/2020 11:29:51 AM Referred By: TITI Confirmed By:MARTHA PRICE MD
[2020-02-12] MEDS: Albuterol 2.5 MG/3 ML VIAL.NEB. INHALATION ×2 (19:56→22:19)
[2020-02-12] MEDS: Ipratropium/Albuterol Sulfate 3 ML AMPUL.NEB INHALATION (19:56)
[2020-02-12 20:11] LABS: Absolute Lymphocyte Count 1.59 X10^3/uL (0.83-4.51); Absolute Neutrophil Count 6.3 X10^3/uL (2.0-7.7); Basophil# 0.02 X10^3/uL; Basophil% 0.2 % (0-1); Eosinophils% 1.1 % (0-5); Hematocrit 40.2 % (40-54); Lymphocyte # 1.59 X10^3/ul (4.0); Lymphocyte % 17.8 % (19-41); Mean Corp Hgb Conc 32.3 g/dL (32-36); Mean Corpuscular Hgb 30.3 pg (27.0-32.0); Mean Corpuscular Volume 93.7 fL (80-94); Monocyte# 0.84 X10^3/uL; Monocyte% 9.4 % (0-10); NRBC Flagged by Analyzer 0 % (0-5); Neutrophil # 6.29 X10^3/uL (2.7-7.7); Neutrophil % 70.7 % (47-70); Platelet Count 184 K/mm3 (150-450); RBC Distribution Width CV 14.2 % (11.6-14.6); RBC Distribution Width SD 48.4 fl (35.1-43.9); Red Blood Count 4.29 M/mm3 (4.6-6.2); White Blood Count 8.9 K/mm3 (4.4-11.0)
--- NOTE | 2020-02-12 20:21 | CPS ---
x1 Albuterol given to pt. in ED as well
--- NOTE | 2020-02-12 20:30 | RAD_ITS ---
STUDY: X-RAY CHEST REASON FOR EXAM: Male, 69 years old. COUGH, SOB TECHNIQUE: 2 AP portable view of the chest. COMPARISON: August 16 2019 FINDINGS: Chronic elevation of the left hemidiaphragm. Chronic interstitial thickening and mild interstitial edema bilaterally. No new opacity is seen. There is no demonstrated pleural abnormality. Normal size heart. The remaining visualized structures are stable. RAD/Chest 1 View (Portable) IMPRESSION: No acute process Electronically Signed: Jonny Oakley MD at 21:04 EDT , Service support ,
[2020-02-12 20:36] LABS: ALB/GLOB Ratio 0.8 RATIO (0.9-2.4); AST(SGOT) 19 U/L (15-37); Alanine Aminotransfer ALT/SGPT 18 U/L (16-61); Albumin, Serum 3.4 g/dL (3.2-5.0); Alkaline Phosphatase 77 U/L (45-117); Anion Gap 5 (5-15); BUN 20 mg/dL (7-18); BUN/Creat Ratio 19.6 RATIO (10-20); Calcium,Total 8.9 mg/dL (8.5-10.1); Chloride 107 mmol/L (98-107); Creatinine, Serum 1.02 mg/dL (0.70-1.30); EST Glomerular Filtration Rate 76 mL/min (>60); Est Glom Filt Rate - Afr Amer 92 mL/min (>60); Estimated Creatinine Clearance 79.39 ml/min; Globulin 4.3 g/dL (2.2-4.2); Glucose 184 mg/dL (74-106); Lactic Acid 1.5 mmol/L (0.4-1.9); Potassium 3.9 mmol/L (3.5-5.1); Protein, Total 7.7 g/dL (6.4-8.2); Sodium Level 141 mmol/L (136-145)
[2020-02-12 20:39] LABS: International Normalized Ratio 1.9; Prothrombin Time (Protime)PT. 21.6 SECONDS (11.7-14.9)
[2020-02-12 20:40] LABS: Partial Thromboplast Time 52.7 Seconds (24.1-36.2)
[2020-02-12 22:00] LABS: Probe Check PASS; Specimen Processing Control PASS
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
[2020-02-12] MEDS: MethylPREDNISolone 125 MG/2 ML Vial IV (22:43)
--- NOTE | 2020-02-12 23:01 | CPS ---
[2219] x1 Albuterol given to pt. (Pre-: HR=96, RR=22 and diminished throughout. Post-: HR=98, RR=22 and diminished throughout)
--- NOTE | 2020-02-12 23:06 | HP.PCM_ITS ---
Problem List (1) COPD exacerbation Status: Acute (2) PAF (paroxysmal atrial fibrillation) Status: Chronic (3) Obesity (BMI 30-39.9) Status: Chronic (4) Anxiety and depression Status: Chronic (5) DM type 2 (diabetes mellitus, type 2) Status: Chronic Qualifiers: Diabetes mellitus penitentiary insulin use: with product distribution specialist use Diabetes mellitus complication status: with other specified complication Qualified Code(s): E11.69 - Type 2 diabetes mellitus with other specified complication; Z79.4 - half-way (current) use of insulin (6) Hypothyroidism Status: Chronic Qualifiers: Hypothyroidism type: unspecified Qualified Code(s): E03.9 - Hypothyroidism, unspecified (7) Hyperlipidemia Status: Chronic Qualifiers: Hyperlipidemia type: unspecified Qualified Code(s): E78.5 - Hyperlipidemia, unspecified (8) History of COPD Status: Chronic History of Present Illness Date of Admission: 02/12/20 Chief Complaint: Dyspnea, cough The patient is a 69 y/o M w/ PMHx: Anxiety and Depression, PAF, Diabetes mellitus type II, Hypothyroidism, HLD, COPD who presents to the [facility] ED on 02/12/20 with history of worsening dyspnea, worse with activity with increased respiratory rate with a nonproductive dry intermittent cough, wheezing rare with no recent fever or chills with onset over the last 24 hours with no recent ill contacts, no nausea, emesis, abdominal pain, diarrhea, alteration to his sense of taste or smell beyond his baseline which he notes is diminished already, headache, congestion or specific rhinorrhea. He notes he was at his primary care visit the day prior without issue. Despite attempted interventions at home he continued to have shortness of breath and felt very tight prompting ED presentation. Work-up in the ED included T 97.6, heart rate 98, BP 140/77, re spiratory rate up to 22, 96% on room air, CBC with WC 8.9, hemoglobin 13, platelet 184 without market shift, coags with INR 1.9, CMP with BUN/creatinine 20/1.02, glucose 184, lactic acid 1.5 otherwise not marked appearing, COVID testing negative, blood culture x2 pending per ED, chest x-ray with no acute cardiopulmonary findings, EKG with rate controlled atrial fibrillation. In the ED patient ministered albuterol, DuoNeb therapies as well as Solu-Medrol 125 mg IV x1. Past Medical History Past Medical History (Chronic Problems): Chronic Problems (Last Reviewed 12/23/17 @ 08:30 by Sarah Ma) DM type 2 (diabetes mellitus, type 2) (Chronic) Hypothyroidism (Chronic) Hyperlipidemia (Chronic) History of COPD (Chronic) PAF (paroxysmal atrial fibrillation) (Chronic) Obesity (BMI 30-39.9) (Chronic) Anxiety and depression (Chronic) Poorly controlled type 2 diabetes mellitus (Chronic) With diet instruction and BG reading education patient has been trying to avoid high carb meals. Is getting up in the middle of the night and eating on occasion. reports he sneaks food at various times during the day. Still eats two meals daily Is beginning to understand importance of carb intake with each meal. He is able to see the difference in BG readings when his carb content is too high and/or varied. Enc consistency in diet Read labels. Consider 3 meals daily instead of two large meals. At this time nesha has much higher readings; in part due to prednisone use recently and continues to eat during night without insulin. I have ask him to stop eating in the night. Will increase his levemir to 55 units twice daily and if all BG above 200 he will increase to 60 units twice daily in 1 week. On statin Bp controlled Eye exam each year. Medical History: Medical History (Last Reviewed 12/23/17 @ 08:30 by Sarah Ma) Anxiety and depression F41.8 Atrial fibrillation I48.91 Back problem M53.9 Diabetes type 2, controlled E11.9 Dx : 2010 Last exacerbation : DKA : 2017 Hypoglycemic episode : never ER visit : 2017 Head trauma S09.90XA Hx of transfusion of whole blood Z92.89 Sepsis A41.9 Allergies No Known Allergies Allergy (Verified 08/16/19 11:39) Home Medications: Ambulatory Orders Medication Instructions Recorded Levothyroxine [Synthroid] 175 mcg PO DAILY 07/30/14 Pravastatin [Pravachol] 40 mg PO QHS 07/30/14 Insulin Glargine,Hum.rec.anlog 40 unit SQ DAILY 09/16/18 [Lantus Solostar] Insulin Glargine,Hum.rec.anlog 40 unit SQ QHS 09/16/18 [Lantus Solostar] Insulin Lispro [Humalog KwikPen] 24 units SQ DINNER 09/16/18 Insulin Lispro [Humalog Kwikpen] 24 units SQ DAILY 09/16/18 Venlafaxine HCl [Effexor] 75 mg PO DAILY 09/16/18 metFORMIN (XR) [Glucophage Xr] 1,000 mg PO 1600 09/16/18 Cholecalciferol (VIT D3) [Vitamin 1,000 unit PO DAILY #1 tablet 09/18/18 D] Albuterol Inhaler [Ventolin Hfa] 1 - 2 puff INHALATION Q4H PRN PRN 08/16/19 #1 inhaler Rivaroxaban [Xarelto] 20 mg PO DINNER 08/16/19 Fluoxetine [Prozac] 60 mg PO DAILY 02/12/20 Surgical History: Surgical History (Last Reviewed 12/23/17 @ 08:30 by Sarah Ma) H/O hernia repair Z98.890, Z87.19 Surgical History: herniorrhaphy, - - Hernia repair, back surgery, foot surgeries. Psychiatric History: Anxiety, Depression Lives: Spouse/ Significant Other Smoking Status: Former smoker - Patient quit cigarette tobacco usage in 2009 with prior to this 1 pack/day since he was 13 years old. Alcohol: None Drugs: None - *Family History Maternal Family History: Family History (Last Reviewed 12/23/17 @ 08:30 by Sarah Ma) Mother Cancer History Items: Cancer Paternal Family History: Family History (Last Reviewed 12/23/17 @ 08:30 by Sarah Ma) Mother Cancer History Items: - - Patient notes that his father lived into his old age without market issue with no specific diseases including heart disease, diabetes, cancer. Review of Systems Constitutional: Reports: Weakness, Fatigue. Denies: Anorexia, Chills, Fever, Malaise, Weight Change HEENT: Reports: - - Patient has chronic small loss/decrease.. Denies: Head Aches, Nasal Congestion, Sinus Congestion, Sinus Drainage, Visual Changes Cardiovascular: Denies: Chest Pain, Chest Pressure, Chest Tightness, Light Headedness, Orthopnea, Palpitations, Syncope Respiratory: Reports: Cough, Shortness of Breath, Shortness of breath at rest, Shortness of breath upon exertion, Wheezing. Denies: Sputum production Gastrointestinal: Denies: Abdominal Pain, Nausea, Vomiting Genitourinary: Denies: Dysuria Musculoskeletal: Denies: Joint Pain, Joint Tenderness Skin: Denies: Rash, Wounds Neurological: Denies: Numbness, Tingling, Focal weakness Psychiatric: Reports: Anxiety, Depression. Denies: Homicidal Ideations, Suicidal Ideations Hematologic/ Lymphatic: Reports: Easy Bruising, Easy Bleeding VTE Information - Inpt Only VTE Present on Admission: No VTE Mechan Device Prophylaxis: SCD's VTE Pharm Prophylaxis ordered?: No Reason prophylaxis not ordered:: Treatment Not Indicated - We will continue patient home oral anticoagulant therapy. Patient Problems: Active and Suspected Problems (Last Reviewed 12/23/17 @ 08:30 by Sarah Ma) COPD exacerbation (Acute) Subjective: Patient seated upright in the ED bed, fatigued appearing, notes some improvement in his dyspnea but still extremely tight and fatigued. Objective: Physical Examination: General: awake, alert, oriented x 3 and cooperative, seated upright in the ED bed, fatigued appearing, notes shortness of breath is mildly improved, still tight.. Skin: normal color, turgor, no icterus, cyanosis. HEENT: AT/NC, EOMI, PERRLA, moderately dry MM, facial dermatitis present, no carotid bruits or JVD noted. Lungs: Diminished breath sounds, greater bases, no obvious evidence of any distress, decreased effort, occasional end expiratory wheeze noted, extremely tight. Heart: Rate controlled; no gallop, rub audible. Abdomen: soft, obese, NTTP, ND, normal BS, no HSM. Extremities: no cyanosis, clubbing, mild bilateral ankle nonpitting edema. Neurological: patient awake, alert, oriented x 3; cognitive function intact; pupils equally reactive to light and accomodation; cranial nerves II-XII grossly normal, moving all 4 extremities, no focal deficits, strength moderately globally Jordana secondary to acute presentation. Psychiatric: affect appears fatigued otherwise normal, no acute evidence of depressive or anxiety feelings. - Physical Exam Vitals/I&O's: Vital Signs Temp Pulse Resp BP Pulse Ox 97.2 F L 97 26 H 120/67 93 02/12/20 22:46 02/12/20 22:46 02/12/20 22:46 02/12/20 22:46 02/12/20 22:46 Oxygen Delivery Method Room Air Weight: 300 lb Body Mass Index (BMI) 37.5 Finger Stick Blood Glucose 142 Laboratory Results 02/12/20 19:52: COVID-19 (ZOE) Negative 02/12/20 19:55: WBC 8.9, RBC 4.29 L, Hgb 13.0, Hct 40.2, MCV 93.7, MCH 30.3, MCHC 32.3, RDW Std Deviation 48.4 H, RDW Coeff of Marifer 14.2, Plt Count 184, Immature Gran % (Auto) 0.800, Neut % (Auto) 70.7 H, Lymph % (Auto) 17.8 L, [place] % (Auto) 9.4, Eos % (Auto) 1.1, Baso % (Auto) 0.2, Absolute Neuts (auto) 6.3, Absolute Lymphs (auto) 1.59, Nucleated RBC % 0 02/12/20 19:55: PT 21.6 H, INR 1.9, APTT 52.7 H 02/12/20 19:55: Sodium 141, Potassium 3.9, Chloride 107, Carbon Dioxide 29.0, Anion Gap 5, BUN 20 H, Creatinine 1.02, Estim Creat Clear Calc 79.39, Est GFR (MDRD) Af Amer 92, Est GFR (MDRD) Non-Af 76, BUN/Creatinine Ratio 19.6, Glucose 184 H, Calcium 8.9, Total Bilirubin 0.80, AST 19, ALT 18, Alkaline Phosphatase 77, Total Protein 7.7, Albumin 3.4, Globulin 4.3 H, Albumin/Globulin Ratio 0.8 L 02/12/20 19:55: Lactic Acid 1.5 Assessment/Plan All Active Problems (Last Reviewed 12/23/17 @ 08:30 by Sarah Ma) Acute back pain (Acute) COPD exacerbation (Acute) The patient is a 69 y/o M w/ PMHx: Anxiety and Depression, PAF, Diabetes mellitus type II, Hypothyroidism, HLD, COPD who presents to the [facility] ED on 02/12/20 with history of worsening dyspnea, worse with activity with increased respiratory rate with a nonproductive dry intermittent cough, wheezing rare with no recent fever or chills with onset over the last 24 hours. 1. Acute on chronic COPD exacerbation: CXR w/ chronic changes, CBC on admission w/ no market WC elevation or left shift and afebrile. Will admit to medical surgical floor, maintain on oxygen with wean as tolerated to room air, continue ATC duonebs, PRN albuterol, IV methylprednisolone, HOB, IS parameters, defer antibiotic therapy is afebrile and no market WBC elevation or left shift, negative COVID testing per ED, will obtain respiratory viral panel and sputum cultures. 2. Diabetes mellitus type II: Hold oral home regimen, continue home insulin regimen, ADA diet, accu checks w/ ISS. 3. PAF: We will continue patient home Xarelto regimen, not on any rate or rhythm agent, continue to monitor. 4. Chronic back pain: History of fall with fracture, encourage fall precautions. 5. Anxiety and depression: We will continue patient home Effexor and Prozac regimen however will recommend follow-up with primary care physician for possible regimen alteration to avoid using these agents together. 6. Hypothyroidism: Continue home synthroid regimen. 7. DVT prophylaxis: SCDs, continue home Xarelto regimen. 8. CODE status: Patient does not have healthcare power of energy attorney nor living will set up. Patient and his do note that they have the paperwork and recommended that they discuss this with case management/social work if they needed assistance. Discussed CODE status at length including difference between FULL code, DNR-CCA and DNR-CC status. Following discussions about the differences in these status, requested Full Code status. Advanced Care Planning Face to Face Time: 16 minutes. Inpatient E&M: 84690 Init Hosp L3 Procedures: 58727 Advncd Care Plan 30 Min
[2020-02-13] VITALS (11 sets, daily range): BP systolic 109–124; BP diastolic 59–70; PULSE 83–110; RESP 18–24; TEMP 36.4–36.8; O2SAT 91–97; BMI 37.1
[2020-02-13] MEDS: Ipratropium/Albuterol Sulfate 3 ML AMPUL.NEB INHALATION ×5 (00:23→19:09)
[2020-02-13] MEDS: Levothyroxine 175 MCG Tablet PO (06:34)
--- NOTE | 2020-02-13 07:04 | PCM.PN.HOSP ---
Patient Problems: Active and Suspected Problems (Last Reviewed 12/23/17 @ 08:30 by Sarah Ma) COPD exacerbation (Acute) Reason for Visit: Follow-up for COPD exacerbation Objective: Patient shortness of breath is much improved. Denies wheezing, chest congestion. Patient does not have significant cough or sputum production. Patient is still mild tachypneic. Physical exam General: Alert, Oriented x3, Cooperative HEENT: Atraumatic, PERRLA, EOMI, Normocephalic Oral: No Gingival or Mucosal Lesions/ Ulcerations Neck: Supple, No JVD, Negative Carotid Bruits Lungs: Air entry severely diminished in bilateral lung bases. No crepitation/rhonchi/wheezing. Cardiovascular: Regular rate, Regular Rhythm, Normal S1, Normal S2, No murmurs Abdomen: Bowel Sounds Present, Soft, Non Tender, Non-Distended : No renal angle tenderness. No suprapubic tenderness. Extremities: Mild ankle edema. There is a scab on the [place] of left leg. Intermittent seeping but currently dry. Bilateral chronic venous insufficiency. Skin: Stasis dermatitis in bilateral lower legs. Musculoskeletal: No Tenderness to Palpation of Joints or Extremities Neurological: Cranial nerves II-XII grossly intact, Deep Tendon Reflexes 2+/4 and Symmetrical, Neuro grossly intact Psych/Mental Status: Normal Affect, Appropriate. Vitals/I&O's: Vital Signs Temp Pulse Resp BP Pulse Ox 97.7 F L 86 20 H 124/64 H 97 02/13/20 06:27 02/13/20 06:27 02/13/20 06:27 02/13/20 06:27 02/13/20 06:27 Oxygen Delivery Method Room Air Weight: 297 lb 2.93 oz Body Mass Index (BMI) 37.1 Finger Stick Blood Glucose 142 Intake and Output for Last 24 Hours 02/11/20 02/12/20 02/13/20 23:59 23:59 23:59 Intake Total 200 / 200 Balance 200 / 200 Laboratory Results 02/12/20 19:52: COVID-19 (ZOE) Negative 02/12/20 19:55: WBC 8.9, RBC 4.29 L, Hgb 13.0, Hct 40.2, MCV 93.7, MCH 30.3, MCHC 32.3, RDW Std Deviation 48.4 H, RDW Coeff of Marifer 14.2, Plt Count 184, Immature Gran % (Auto) 0.800, Neut % (Auto) 70.7 H, Lymph % (Auto) 17.8 L, [place] % (Auto) 9.4, Eos % (Auto) 1.1, Baso % (Auto) 0.2, Absolute Neuts (auto) 6.3, Absolute Lymphs (auto) 1.59, Nucleated RBC % 0 02/12/20 19:55: PT 21.6 H, INR 1.9, APTT 52.7 H 02/12/20 19:55: Sodium 141, Potassium 3.9, Chloride 107, Carbon Dioxide 29.0, Anion Gap 5, BUN 20 H, Creatinine 1.02, Estim Creat Clear Calc 79.39, Est GFR (MDRD) Af Amer 92, Est GFR (MDRD) Non-Af 76, BUN/Creatinine Ratio 19.6, Glucose 184 H, Calcium 8.9, Total Bilirubin 0.80, AST 19, ALT 18, Alkaline Phosphatase 77, Total Protein 7.7, Albumin 3.4, Globulin 4.3 H, Albumin/Globulin Ratio 0.8 L 02/12/20 19:55: Lactic Acid 1.5 Current Medications Acetaminophen (Tylenol) 650 mg PO Q6H PRN PRN PRN Reason: Pain Score 1-10/Temp > 100.7 F Al Hydroxide/Mg Hydroxide (Mylanta Ii) 30 ml PO Q6H PRN PRN PRN Reason: Gastric Burning Albuterol Sulfate (Ventolin Aerosols) 2.5 mg INHALATION Q2H PRN PRN PRN Reason: Dyspnea, wheezing Albuterol/Ipratropium (Duoneb) 3 ml INHALATION Q4HWA.RT ELIE Last Admin: 02/13/20 06:59 Dose: 3 ml Documented by: Cholecalciferol (Vitamin D (25mcg)) 1,000 unit PO DAILY [facility] Famotidine (Pepcid) 20 mg PO BID ELIE Fluoxetine HCl (Prozac) 60 mg PO DAILY ELIE Guaifenesin (Robitussin) 20 ml PO Q4H PRN PRN PRN Reason: COUGH Hydralazine HCl (Apresoline Iv) 10 mg IV Q4H PRN PRN PRN Reason: SBP > 160 Insulin Glargine (Lantus (Bkc)) 40 units SC QHS [facility] Insulin Glargine (Lantus (Bkc)) 40 units SC DAILY [facility] Insulin Human Lispro (Humalog Kwikpen (Bkc)) 24 unit SC DAILY [facility] Insulin Human Lispro (Humalog Kwikpen (Bkc)) 24 unit SC DINNER [facility] Insulin Human Lispro (Humalog Kwikpen (Bkc)) 0 unit SC ACHS [facility]; Protocol Levothyroxine Sodium (Synthroid) 175 mcg PO DAILY@0600 [facility] Last Admin: 02/13/20 06:34 Dose: 175 mcg Documented by: Magnesium Hydroxide (Milk Of Magnesia) 30 ml PO DAILY PRN PRN PRN Reason: Constipation Melatonin (Melatonin) 3 mg PO QHS PRN PRN PRN Reason: INSOMNIA Methylprednisolone (Solu-Medrol) 40 mg IV Q8 [facility] Morphine Sulfate () 2 mg IV Q3H PRN PRN PRN Reason: Pain Score 6-10/10 Nitroglycerin (Nitrostat) 0.4 mg SUBLINGUAL Q5M PRN PRN Reason: CARDIAC/CHEST PAIN Ondansetron HCl (Zofran) 4 mg IV Q8H PRN PRN PRN Reason: NAUSEA/VOMITING Oxycodone HCl (Oxyir) 5 mg PO Q4H PRN PRN PRN Reason: Pain Score 4-5/10 Pravastatin Sodium (Pravachol) 40 mg PO QHS [facility] Prochlorperazine Edisylate (Compazine Iv) 5 mg IV Q4H PRN PRN PRN Reason: Breakthrough nausea/vomiting Psyllium Hydrophilic Mucilloid (Metamucil) 1 packet PO DAILY PRN PRN PRN Reason: Constipation Rivaroxaban (Xarelto) 20 mg PO DINNER [facility] Senna/Docusate Sodium (Senokot-S, Jada-Colace) 2 tablet PO BID PRN PRN PRN Reason: Constipation Sodium Chloride () 10 - 40 ml IV UD PRN PRN Reason: SALINE FLUSH Throat Lozenges (Cepacol Sore Throat Lozenge) 1 lozenge MUCOUS MEM Q2H PRN PRN PRN Reason: SORE THROAT Venlafaxine HCl (Effexor) 75 mg PO DAILY [facility] STROKE Vital Signs/Narrative: Vital Signs Temp Pulse Resp BP Pulse Ox 02/13/20 06:27 97.7 F L 86 20 H 124/64 H 97 Medical Necessity - Tobacco Use Smoking Status: Former smoker Tobacco Use: Cigarettes Assessment/Plan All Active Problems (Last Reviewed 12/23/17 @ 08:30 by Sarah Ma) Acute back pain (Acute) COPD exacerbation (Acute) The patient is a 69 y/o M w/ PMHx: Anxiety and Depression, PAF, Diabetes mellitus type II, Hypothyroidism, HLD, COPD who is admitted with shortness of breath, tachypnea, occasional wheezing consistent with COPD exacerbation. 1. Acute on chronic COPD exacerbation secondary to rhinovirus acute bronchitis: Patient has chronic changes on the chest x-ray. No leukocytosis. Patient is afebrile. Continue oxygen to keep pulse ox 90%. Continue bronchodilator DuoNeb, PRN albuterol, IV Solu-Medrol, incentive spirometry, PEP. Currently, no need/indication for antibiotic. Respiratory panel positive of rhinovirus. COVID 19 PCR negative. 2. Diabetes mellitus type II: Hold oral home regimen, continue home insulin regimen, ADA diet, Accu-Chek before meals and cover with meal sliding scale Hyperglycemia, glucose high 384. Started on Lantus 10 units subcutaneous twice daily. 3. PAF: continue patient home Xarelto regimen, not on any rate or rhythm agent, continue to monitor. 4. Chronic back pain: History of fall with fracture, encourage fall precautions. 5. Anxiety and depression: We will continue patient home Effexor and Prozac regimen however will recommend follow-up with primary care physician for possible regimen alteration to avoid using these agents together. 6. Hypothyroidism: Continue home synthroid regimen. 7. DVT prophylaxis: SCDs, continue home Xarelto regimen. Clinical Impression(s) from Imaging Studies Chest X-Ray 02/12/20 20:30 IMPRESSION: No acute process Microbiology Past 72 Hours 02/13/20 00:20 Mucosa - Nasopharyngeal Respiratory Panel (PCR) - Final Rhinovirus Laboratory Results 02/12/20 19:52: COVID-19 (ZOE) Negative 02/12/20 19:55: WBC 8.9, RBC 4.29 L, Hgb 13.0, Hct 40.2, MCV 93.7, MCH 30.3, MCHC 32.3, RDW Std Deviation 48.4 H, RDW Coeff of Marifer 14.2, Plt Count 184, Immature Gran % (Auto) 0.800, Neut % (Auto) 70.7 H, Lymph % (Auto) 17.8 L, [place] % (Auto) 9.4, Eos % (Auto) 1.1, Baso % (Auto) 0.2, Absolute Neuts (auto) 6.3, Absolute Lymphs (auto) 1.59, Nucleated RBC % 0 02/12/20 19:55: PT 21.6 H, INR 1.9, APTT 52.7 H 02/12/20 19:55: Sodium 141, Potassium 3.9, Chloride 107, Carbon Dioxide 29.0, Anion Gap 5, BUN 20 H, Creatinine 1.02, Estim Creat Clear Calc 79.39, Est GFR (MDRD) Af Amer 92, Est GFR (MDRD) Non-Af 76, BUN/Creatinine Ratio 19.6, Glucose 184 H, Calcium 8.9, Total Bilirubin 0.80, AST 19, ALT 18, Alkaline Phosphatase 77, Total Protein 7.7, Albumin 3.4, Globulin 4.3 H, Albumin/Globulin Ratio 0.8 L 02/12/20 19:55: Lactic Acid 1.5 02/13/20 05:30: WBC 7.3, RBC 4.05 L, Hgb 12.3 L, Hct 38.4 L, MCV 94.8 H, MCH 30.4, MCHC 32.0, RDW Std Deviation 48.4 H, RDW Coeff of Marifer 14.0, Plt Count 174, MPV 12.9 H, Immature Gran % (Auto) 0.800, Neut % (Auto) 88.8 H, Lymph % (Auto) 8.5 L, [place] % (Auto) 1.8, Eos % (Auto) 0.0, Baso % (Auto) 0.1, Absolute Neuts (auto) 6.5, Absolute Lymphs (auto) 0.62 L, Nucleated RBC % 0 02/13/20 05:30: Sodium 138, Potassium 4.1, Chloride 103, Carbon Dioxide 25.0, Anion Gap 10, BUN 20 H, Creatinine 1.01, Estim Creat Clear Calc 80.18, Est GFR (MDRD) Af Amer 93, Est GFR (MDRD) Non-Af 77, BUN/Creatinine Ratio 19.8, Glucose 337 H, Calcium 8.6, Total Bilirubin 0.40, AST 15, ALT 20, Alkaline Phosphatase 78, Total Protein 7.2, Albumin 3.1 L, Globulin 4.1, Albumin/Globulin Ratio 0.8 L 02/13/20 07:47: POC Glucose 384 H Inpatient E&M: 79287 Subs Hosp L2
[2020-02-13] MEDS: 0.9% Saline Lock 10 ML Syringe IV ×3 (07:09→21:49)
[2020-02-13 07:14] LABS: Absolute Lymphocyte Count 0.62 X10^3/uL (0.83-4.51); Absolute Neutrophil Count 6.5 X10^3/uL (2.0-7.7); Basophil# 0.01 X10^3/uL; Basophil% 0.1 % (0-1); Hematocrit 38.4 % (40-54); Hemoglobin 12.3 g/dL (13.0-16.5); Lymphocyte # 0.62 X10^3/ul (4.0); Lymphocyte % 8.5 % (19-41); Mean Corpuscular Hgb 30.4 pg (27.0-32.0); Mean Corpuscular Volume 94.8 fL (80-94); Mean Platelet Vol. 12.9 fl (6.2-12.0); Monocyte# 0.13 X10^3/uL; Monocyte% 1.8 % (0-10); NRBC Flagged by Analyzer 0 % (0-5); Neutrophil # 6.48 X10^3/uL (2.7-7.7); Neutrophil % 88.8 % (47-70); POSITIVE MORPHOLOGY YES; Platelet Count 174 K/mm3 (150-450); RBC Distribution Width SD 48.4 fl (35.1-43.9); Red Blood Count 4.05 M/mm3 (4.6-6.2); White Blood Count 7.3 K/mm3 (4.4-11.0)
[2020-02-13 07:22] LABS: Differential Indicated SCAN CRITERIA MET
[2020-02-13 07:59] LABS: ALB/GLOB Ratio 0.8 RATIO (0.9-2.4); AST(SGOT) 15 U/L (15-37); Alanine Aminotransfer ALT/SGPT 20 U/L (16-61); Albumin, Serum 3.1 g/dL (3.2-5.0); Alkaline Phosphatase 78 U/L (45-117); Anion Gap 10 (5-15); BUN 20 mg/dL (7-18); BUN/Creat Ratio 19.8 RATIO (10-20); Calcium,Total 8.6 mg/dL (8.5-10.1); Chloride 103 mmol/L (98-107); Creatinine, Serum 1.01 mg/dL (0.70-1.30); EST Glomerular Filtration Rate 77 mL/min (>60); Est Glom Filt Rate - Afr Amer 93 mL/min (>60); Estimated Creatinine Clearance 80.18 ml/min; Globulin 4.1 g/dL (2.2-4.2); Glucose 337 mg/dL (74-106); Potassium 4.1 mmol/L (3.5-5.1); Protein, Total 7.2 g/dL (6.4-8.2); Sodium Level 138 mmol/L (136-145)
[2020-02-13 08:01] LABS: Bedside Glucose 384 mg/dL (70-110)
[2020-02-13] MEDS: Insulin Lispro 100 UNIT/ML INSULN.PEN 24 UNIT SC (08:02)
[2020-02-13] MEDS: Insulin Lispro 100 UNIT/ML INSULN.PEN SC ×4 (08:02→21:50)
[2020-02-13] MEDS: Famotidine 20 MG Tablet PO ×2 (09:30→21:49)
[2020-02-13] MEDS: Venlafaxine HCl 75 MG Tablet PO (09:30)
[2020-02-13] MEDS: FLUoxetine 20 MG Capsule 60 MG PO (09:31)
--- NOTE | 2020-02-13 10:58 | CASEMGMT ---
MG ANDERSON assessment: Phone interview with patient for initial transition planning/care coordination assessment d/t pt being in droplet precautions. Pt initially answered phone but then handed phone to for her to answer questions for him at this time. MG ANDERSON introduced self and role at [facility], pt voices understanding and consents to assessment. Care providers, pharmacy, and demographics verified at this time. Presentation: Sent from urgent care for Cough/SOB. Pt denies fever. Admitting dx: COPD exac PCP: Raffaele Olguin Specialists: Justin, [employer] Preferred [facility]acy: [facility] Insurance: [facility] A/B, [employer] Prescription Benefit: Yes Living Will/HPOA: states pt does not have LW/HPOA at this time. LNOK: Callie Bhattrashmiwilian, Living Arrangements: Pt lives with in 1 story home and states no concerns for pt at home at this time. Pt is independent with ADL's. Transportation: Pt/ drive and states no transportation concerns at this time. DME/HHC: Pt has the following DME: cane, rollator, grab bars, and shower chair. states no need for any further DME. states pt has been to [facility] in the past many years ago and declines HHC in the past. states no concerns with pt going home at time of discharge. Pt is retired. Pt quit smoking cigarettes in 2009 and denies ETOH. states no further concerns/needs at this time. Pt is on room air at this time. CM to follow for any further discharge planning/needs. Advised pt to ask for CM if any further questions/concerns/needs arise, voices understanding. Pt Goal: Home Plan: [place] MG ANDERSON
[2020-02-13 12:15] LABS: Bedside Glucose 361 mg/dL (70-110)
[2020-02-13] MEDS: guaiFENesin 10 ML UDC (200MG/10ML) 20 ML PO (14:23)
[2020-02-13 17:15] LABS: Bedside Glucose 385 mg/dL (70-110)
[2020-02-13] MEDS: Insulin Lispro 100 UNIT/ML INSULN.PEN 30 UNIT SC (17:16)
[2020-02-13] MEDS: Rivaroxaban 20 MG Tablet PO (17:17)
[2020-02-13] MEDS: Pravastatin 40 MG Tablet PO (21:49)
[2020-02-14] VITALS (14 sets, daily range): BP systolic 120–128; BP diastolic 69–92; PULSE 74–148; RESP 16–20; TEMP 36.4–37; O2SAT 90–96
[2020-02-14 00:06] LABS: Bedside Glucose 289 mg/dL (70-110)
--- NOTE | 2020-02-14 03:02 | NURSING ---
This RN reviewed SN charting and agree with charting.
[2020-02-14] MEDS: 0.9% Saline Lock 10 ML Syringe IV ×4 (05:08→22:15)
[2020-02-14] MEDS: Levothyroxine 175 MCG Tablet PO (05:08)
[2020-02-14] MEDS: Ipratropium/Albuterol Sulfate 3 ML AMPUL.NEB INHALATION ×3 (06:48→18:46)
[2020-02-14] MEDS: Insulin Lispro 100 UNIT/ML INSULN.PEN SC ×2 (06:55→12:07)
[2020-02-14 07:01] LABS: Bedside Glucose 304 mg/dL (70-110)
[2020-02-14] MEDS: Insulin Lispro 100 UNIT/ML INSULN.PEN 30 UNIT SC (08:16)
[2020-02-14] MEDS: Famotidine 20 MG Tablet PO ×2 (08:19→22:14)
[2020-02-14] MEDS: Venlafaxine HCl 75 MG Tablet PO (08:19)
[2020-02-14] MEDS: FLUoxetine 20 MG Capsule 60 MG PO (08:19)
--- NOTE | 2020-02-14 09:53 | PN_ITS ---
Patient Problems: Active and Suspected Problems (Last Reviewed 12/23/17 @ 08:30 by Sarah Ma) COPD exacerbation (Acute) Reason for Visit: COPD exacerbation secondary to rhinovirus. Objective: Patient heart rate range about 85 to 90/min at rest which went up to 140/min on walking and recovers to 103/min. Patient is also obviously short of breath on walking. Pulse ox 94% on room air drops to 90 to 91% on walking at room air. As per nursing staff, Shadia patient's pulse ox also drops intermittently 88% to 90% at night while sleeping. Patient also is morbidly obese mainly truncal obesity and since possible has obesity hypoventilation or obstructive sleep apnea. Has never followed any pulm onologist, PFT or sleep study. Patient denies any cardiac disease but has not seen any clerk entry level in the past. Physical exam General: Alert, Oriented x3, Cooperative, BMI 37.1 mainly truncal obesity HEENT: Atraumatic, PERRLA, EOMI, Normocephalic Oral: No Gingival or Mucosal Lesions/ Ulcerations Neck: Supple, No JVD, Negative Carotid Bruits Lungs: Air entry diminished in bilateral lung bases. No crepitation/rhonchi. Dyspnea and excessive tachycardia on exertion Cardiovascular: Regular rate, Regular Rhythm, Normal S1, Normal S2, No murmurs, intermittent multiform P waves, PVCs Abdomen: Bowel Sounds Present, Soft, Non Tender, Non-Distended : No renal angle tenderness. No suprapubic tenderness. Extremities: No edema, Capillary Refill Less than 3 Seconds Skin: No rashes, No breakdown Musculoskeletal: No Tenderness to Palpation of Joints or Extremities Neurological: Cranial nerves II-XII grossly intact, Deep Tendon Reflexes 2+/4 and Symmetrical, Neuro grossly intact Psych/Mental Status: Normal Affect, Appropriate. Vitals/I&O's: Vital Signs Temp Pulse Resp BP Pulse Ox 98.6 F 85 18 125/92 H 94 02/14/20 09:38 02/14/20 09:38 02/14/20 09:38 02/14/20 09:38 02/14/20 09:38 Oxygen Flow Rate (L/min) 2 Oxygen Delivery Method Room Air Weight: 297 lb 2.93 oz Body Mass Index (BMI) 37.1 Finger Stick Blood Glucose 142 Intake and Output for Last 24 Hours 02/12/20 02/13/20 02/14/20 23:59 23:59 23:59 Intake Total 200 / 200 240 / 240 Output Total 350 / 350 350 / 350 Balance -150 / -150 -110 / -110 Microbiology Past 72 Hours 02/13/20 00:20 Mucosa - Nasopharyngeal Respiratory Panel (PCR) - Final Rhinovirus Laboratory Results 02/13/20 12:06: POC Glucose 361 H 02/13/20 17:12: POC Glucose 385 H 02/13/20 21:48: POC Glucose 289 H 02/14/20 06:51: POC Glucose 304 H Current Medications Acetaminophen (Tylenol) 650 mg PO Q6H PRN PRN PRN Reason: Pain Score 1-10/Temp > 100.7 F Al Hydroxide/Mg Hydroxide (Mylanta Ii) 30 ml PO Q6H PRN PRN PRN Reason: Gastric Burning Albuterol Sulfate (Ventolin Aerosols) 2.5 mg INHALATION Q2H PRN PRN PRN Reason: Dyspnea, wheezing Albuterol/Ipratropium (Duoneb) 3 ml INHALATION Q4HWA.RT [facility] Last Admin: 02/14/20 06:48 Dose: 3 ml Documented by: Cholecalciferol (Vitamin D (25mcg)) 1,000 unit PO DAILY [facility] Last Admin: 02/14/20 08:19 Dose: 1,000 unit Documented by: Famotidine (Pepcid) 20 mg PO BID [facility] Last Admin: 02/14/20 08:19 Dose: 20 mg Documented by: Fluoxetine HCl (Prozac) 60 mg PO DAILY [facility] Last Admin: 02/14/20 08:19 Dose: 60 mg Documented by: Furosemide (Lasix) 40 mg IV DAILY [facility] Stop: 02/16/20 10:01 Guaifenesin (Robitussin) 20 ml PO Q4H PRN PRN PRN Reason: COUGH Last Admin: 02/13/20 14:23 Dose: 20 ml Documented by: Hydralazine HCl (Apresoline Iv) 10 mg IV Q4H PRN PRN PRN Reason: SBP > 160 Insulin Glargine (Lantus (Bkc)) 60 units SC BID [facility] Last Admin: 02/14/20 08:20 Dose: 60 u Documented by: Insulin Human Lispro (Humalog Kwikpen (Bkc)) 0 unit SC [facility]; Protocol Last Admin: 02/14/20 06:55 Dose: 4 units Documented by: Insulin Human Lispro (Humalog Kwikpen ([facility])) 30 unit SC DAILY [facility] Last Admin: 02/14/20 08:16 Dose: 30 units Documented by: Insulin Human Lispro (Humalog Kwikpen ([facility])) 30 unit SC DINNER [facility] Last Admin: 02/13/20 17:16 Dose: 30 units Documented by: Levothyroxine Sodium (Synthroid) 175 mcg PO DAILY@0600 [facility] Last Admin: 02/14/20 05:08 Dose: 175 mcg Documented by: Magnesium Hydroxide (Milk Of Magnesia) 30 ml PO DAILY PRN PRN PRN Reason: Constipation Melatonin (Melatonin) 3 mg PO QHS PRN PRN PRN Reason: INSOMNIA Methylprednisolone (Solu-Medrol) 40 mg IV Q8 [facility] Last Admin: 02/14/20 05:08 Dose: 40 mg Documented by: Morphine Sulfate () 2 mg IV Q3H PRN PRN PRN Reason: Pain Score 6-10/10 Nitroglycerin (Nitrostat) 0.4 mg SUBLINGUAL Q5M PRN PRN Reason: CARDIAC/CHEST PAIN Ondansetron HCl (Zofran) 4 mg IV Q8H PRN PRN PRN Reason: NAUSEA/VOMITING Oxycodone HCl (Oxyir) 5 mg PO Q4H PRN PRN PRN Reason: Pain Score 4-5/10 Pravastatin Sodium (Pravachol) 40 mg PO QHS [facility] Last Admin: 02/13/20 21:49 Dose: 40 mg Documented by: Prochlorperazine Edisylate (Compazine Iv) 5 mg IV Q4H PRN PRN PRN Reason: Breakthrough nausea/vomiting Psyllium Hydrophilic Mucilloid (Metamucil) 1 packet PO DAILY PRN PRN PRN Reason: Constipation Rivaroxaban (Xarelto) 20 mg PO DINNER [facility] Last Admin: 02/13/20 17:17 Dose: 20 mg Documented by: Senna/Docusate Sodium (Senokot-S, Jada-Colace) 2 tablet PO BID PRN PRN PRN Reason: Constipation Sodium Chloride () 10 - 40 ml IV UD PRN PRN Reason: SALINE FLUSH Last Admin: 02/14/20 05:08 Dose: 20 ml Documented by: Throat Lozenges (Cepacol Sore Throat Lozenge) 1 lozenge MUCOUS MEM Q2H PRN PRN PRN Reason: SORE THROAT Venlafaxine HCl (Effexor) 75 mg PO DAILY [facility] Last Admin: 02/14/20 08:19 Dose: 75 mg Documented by: STROKE Vital Signs/Narrative: Vital Signs Temp Pulse Resp BP Pulse Ox 02/14/20 09:38 98.6 F 85 18 125/92 H 94 02/14/20 06:48 84 16 95 Medical Necessity - Tobacco Use Smoking Status: Former smoker Tobacco Use: Cigarettes Assessment/Plan All Active Problems (Last Reviewed 12/23/17 @ 08:30 by Sarah Ma) Acute back pain (Acute) COPD exacerbation (Acute) The patient is a 69 y/o M w/ PMHx: Anxiety and Depression, PAF, Diabetes mellitus type II, Hypothyroidism, HLD, COPD who is admitted with shortness of breath, tachypnea, occasional wheezing consistent with COPD exacerbation. 1. Acute on chronic COPD exacerbation secondary to rhinovirus acute bronchitis: Patient has chronic changes on the chest x-ray. No leukocytosis. Patient is afebrile. Continue oxygen to keep pulse ox 90%. Continue bronchodilator DuoNeb, PRN albuterol, IV Solu-Medrol, incentive spirometry, PEP. Currently, no need/indication for antibiotic. Respiratory panel positive of rhinovirus. COVID 19 PCR negative. 02/13: Patient short of breath, tachycardia, 140/min, pulse ox dropping to 90 to 91% on walking. Patient has physical deconditioning and walks on pronged cane. Chest x-ray independently reviewed and although not good quality, shows interstitial edema. BNP and Lasix ordered. 2. Sinus tachycardia and dyspnea on walking: Probably secondary to deconditioned cardiopulmonary disease/advanced COPD undiagnosed. Twelve-lead EKG, troponin and 2D echo for tomorrow a.m. Labs ordered. PT and OT. 3. Diabetes mellitus type II: Hold oral home regimen, continue home insulin regimen, ADA diet, Accu-Chek before meals and cover with meal sliding scale Hyperglycemia, glucose high, in the range of 250?300 Blood sugars are still high, dose of Lantus and Humalog insulin increase. 3. PAF: continue patient home Xarelto regimen, not on any rate or rhythm agent, continue to monitor. No echo previous baseline. 4. Chronic back pain: History of fall with fracture, encourage fall precautions. 5. Anxiety and depression: We will continue patient home Effexor and Prozac regimen however will recommend follow-up with primary care physician for possible regimen alteration to avoid using these agents together. 6. Hypothyroidism: Continue home synthroid regimen. 7. DVT prophylaxis: SCDs, continue home Xarelto regimen. Patient wanted to go home but discharge canceled as patient got short of breath, tachycardic on walking. Total time of the visit including total time spent in counseling or coordination of care, (more than 50% of the total time, spent in obtaining medical information from nurses and other ancillary care providers), , review of labs and imaging is 30 minutes. Clinical Impression(s) from Imaging Studies Chest X-Ray 02/12/20 20:30 IMPRESSION: No acute process Microbiology Past 72 Hours 02/13/20 00:20 Mucosa - Nasopharyngeal Respiratory Panel (PCR) - Final Rhinovirus Laboratory Results 02/12/20 19:52: COVID-19 (ZOE) Negative 02/12/20 19:55: WBC 8.9, RBC 4.29 L, Hgb 13.0, Hct 40.2, MCV 93.7, MCH 30.3, MCHC 32.3, RDW Std Deviation 48.4 H, RDW Coeff of Marifer 14.2, Plt Count 184, Immature Gran % (Auto) 0.800, Neut % (Auto) 70.7 H, Lymph % (Auto) 17.8 L, [place] % (Auto) 9.4, Eos % (Auto) 1.1, Baso % (Auto) 0.2, Absolute Neuts (auto) 6.3, Absolute Lymphs (auto) 1.59, Nucleated RBC % 0 02/12/20 19:55: PT 21.6 H, INR 1.9, APTT 52.7 H 02/12/20 19:55: Sodium 141, Potassium 3.9, Chloride 107, Carbon Dioxide 29.0, Anion Gap 5, BUN 20 H, Creatinine 1.02, Estim Creat Clear Calc 79.39, Est GFR (MDRD) Af Amer 92, Est GFR (MDRD) Non-Af 76, BUN/Creatinine Ratio 19.6, Glucose 184 H, Calcium 8.9, Total Bilirubin 0.80, AST 19, ALT 18, Alkaline Phosphatase 77, Total Protein 7.7, Albumin 3.4, Globulin 4.3 H, Albumin/Globulin Ratio 0.8 L 02/12/20 19:55: Lactic Acid 1.5 02/13/20 05:30: WBC 7.3, RBC 4.05 L, Hgb 12.3 L, Hct 38.4 L, MCV 94.8 H, MCH 30.4, MCHC 32.0, RDW Std Deviation 48.4 H, RDW Coeff of Marifer 14.0, Plt Count 174, MPV 12.9 H, Immature Gran % (Auto) 0.800, Neut % (Auto) 88.8 H, Lymph % (Auto) 8.5 L, [place] % (Auto) 1.8, Eos % (Auto) 0.0, Baso % (Auto) 0.1, Absolute Neuts (auto) 6.5, Absolute Lymphs (auto) 0.62 L, Nucleated RBC % 0 02/13/20 05:30: Sodium 138, Potassium 4.1, Chloride 103, Carbon Dioxide 25.0, Anion Gap 10, BUN 20 H, Creatinine 1.01, Estim Creat Clear Calc 80.18, Est GFR (MDRD) Af Amer 93, Est GFR (MDRD) Non-Af 77, BUN/Creatinine Ratio 19.8, Glucose 337 H, Calcium 8.6, Total Bilirubin 0.40, AST 15, ALT 20, Alkaline Phosphatase 78, Total Protein 7.2, Albumin 3.1 L, Globulin 4.1, Albumin/Globulin Ratio 0.8 L 02/13/20 07:47: POC Glucose 384 H Inpatient E&M: [id number] Subs Hosp L3
--- NOTE | 2020-02-14 10:10 | NURSING ---
while doing ambulating pulse ox, HR increase with activity noticed on hand held spo2. Tele placed on pt, pt ambulated and HR up to 140's while ambulating and then recovers within less than 5 minutes at rest to high 90's very low 100's for heart rate. Dr. [place] aware and in to talk with pt. Pt and spouse updated on POC
--- NOTE | 2020-02-14 10:46 | EKG12_ITS ---
Test Reason : Blood Pressure : / mmHG Vent. Rate : 090 BPM Atrial Rate : 086 BPM P-R Int : 000 ms QRS Dur : 150 ms QT Int : 390 ms P-R-T Axes : 000 031 023 degrees QTc Int : 477 ms Atrial fibrillation Right bundle branch block Abnormal ECG When compared with ECG of 12-FEB-2020 19:54, MANUAL COMPARISON REQUIRED, DATA IS UNCONFIRMED Confirmed by DEE BLAS, MARTHA ([id number]), editorial cartoonist CAMPOS PIERCE ([id number]) on 02/17/2020 11:36:12 AM Referred By: ISAEL Confirmed By:MARTHA PRICE MD
[2020-02-14] MEDS: guaiFENesin 1,200 MG Tablet 1200 MG PO ×2 (10:53→22:14)
[2020-02-14] MEDS: Furosemide 40 MG/4 ML Vial IV (10:53)
[2020-02-14 11:08] LABS: Absolute Lymphocyte Count 0.87 X10^3/uL (0.83-4.51); Hematocrit 37.5 % (40-54); Hemoglobin 12.1 g/dL (13.0-16.5); Lymphocyte # 0.87 X10^3/ul (4.0); Lymphocyte % 10.5 % (19-41); Mean Corp Hgb Conc 32.3 g/dL (32-36); Mean Corpuscular Hgb 30.2 pg (27.0-32.0); Mean Corpuscular Volume 93.5 fL (80-94); Monocyte# 0.31 X10^3/uL; Monocyte% 3.8 % (0-10); NRBC Flagged by Analyzer 0 % (0-5); Neutrophil % 84.7 % (47-70); Platelet Count 181 K/mm3 (150-450); RBC Distribution Width CV 14.2 % (11.6-14.6); RBC Distribution Width SD 48.3 fl (35.1-43.9); Red Blood Count 4.01 M/mm3 (4.6-6.2); White Blood Count 8.3 K/mm3 (4.4-11.0)
[2020-02-14 11:30] LABS: Anion Gap 5 (5-15); BUN 28 mg/dL (7-18); BUN/Creat Ratio 30.4 RATIO (10-20); Calcium,Total 8.8 mg/dL (8.5-10.1); Chloride 107 mmol/L (98-107); Creatinine, Serum 0.92 mg/dL (0.70-1.30); EST Glomerular Filtration Rate 86 mL/min (>60); Est Glom Filt Rate - Afr Amer 104 mL/min (>60); Estimated Creatinine Clearance 88.02 ml/min; Glucose 282 mg/dL (74-106); Magnesium 2.2 mg/dL (1.6-2.6); Phosphorus 2.3 mg/dL (2.5-4.9); Potassium 4.2 mmol/L (3.5-5.1); Sodium Level 138 mmol/L (136-145)
[2020-02-14 12:01] LABS: BNP,B-Type NATRIURETIC PEPTIDE 197.2 pg/mL (0-100)
[2020-02-14] MEDS: Metoprolol Tartrate 25 MG Tablet 12.5 MG PO ×2 (12:06→22:14)
[2020-02-14] MEDS: Insulin Lispro 100 UNIT/ML INSULN.PEN 10 UNIT SC (12:07)
[2020-02-14 12:16] LABS: Bedside Glucose 204 mg/dL (70-110)
[2020-02-14] MEDS: Na Biphos/Potassium Phosphate PACKET 1 PACKET PO ×2 (16:58→22:15)
[2020-02-14] MEDS: Rivaroxaban 20 MG Tablet PO (17:02)
[2020-02-14 17:06] LABS: Bedside Glucose 107 mg/dL (70-110)
[2020-02-14] MEDS: Pravastatin 40 MG Tablet PO (22:13)
[2020-02-14 22:31] LABS: Bedside Glucose 123 mg/dL (70-110)
[2020-02-15] VITALS (18 sets, daily range): BP systolic 121–133; BP diastolic 78–86; PULSE 69–110; RESP 18–20; TEMP 36.5–36.6; O2SAT 91–94
[2020-02-15] MEDS: Levothyroxine 175 MCG Tablet PO (05:12)
[2020-02-15] MEDS: Na Biphos/Potassium Phosphate PACKET 1 PACKET PO ×3 (05:12→21:28)
--- NOTE | 2020-02-15 05:55 | ECHOCS_ITS ---
Reason For Study: SOB, Tachycardia Procedure This was a 2D Doppler, Color Flow transthoracic echocardiogram. The study was technically difficult. Contrast injection was performed. Exam performed portable in patient room. Left Ventricle Normal LV size. Left ventricular systolic function is normal. The estimated ejection fraction is 55 %. Stage 3 diastolic dysfunction. No regional wall motion abnormalities noted. Right Ventricle Normal RV size. Normal systolic function. Atria The left atrium is moderately enlarged. The right atrium is mildly enlarged. Tricuspid Valve Normal tricuspid valve. Mild (1+) tricuspid valve insufficiency. Pulmonary artery systolic pressure is 30 mmHg. Pulmonic Valve Normal pulmonic valve. Great Vessels Normal aortic root. The pulmonary artery is normal size. Normal inferior vena cava. Pericardium/Pleural No pericardial effusion. Medication Diluted definity 4ml given slow IV push to enhance endocardial definition. MMode/2D Measurements & Calculations LVIDd: 5.3 cm IVSd: 1.1 cm Ao root diam: 3.7 cm LVIDs: 4.1 cm LVPWd: 1.3 cm LA dimension: 4.2 cm FS: 21.6 % LAV(MOD-bp): 93.3 ml LA A4 area: 26.4 cm2 RA A4 area: 22.9 cm2 LAV(MOD-bp) Indexed: 36.3 ml/m2 LAV(MOD-sp2): 80.3 ml LAV(MOD-sp4): 97.3 ml Time Measurements MV dec time: 0.19 sec Doppler Measurements & Calculations MV E max tiffani: 94.7 cm/sec MV V2 max: 129.4 cm/sec MV P1/2t max tiffani: 130.1 cm/sec MV A max tiffani: 39.8 cm/sec MV max P.7 mmHg MV P1/2t: 95.1 msec MV E/A: 2.4 MV V2 mean: 51.9 cm/sec MV mean P.5 mmHg MV dec slope: 400.8 cm/sec2 MV V2 VTI: 33.3 cm MVA(P1/2t): 2.3 cm2 Ao V2 max: 104.8 cm/sec LV V1 max: 82.5 cm/sec PA V2 max: 83.8 cm/sec Ao max P.4 mmHg LV V1 max P.7 mmHg TR max tiffani: 254.8 cm/sec TR max P.1 mmHg Interpretation Summary Normal LV size. Left ventricular systolic function is normal. The estimated ejection fraction is 55 %. Stage 3 diastolic dysfunction. Pulmonary artery systolic pressure is 30 mmHg. Ordering Physician: Osmar Brown Referring Physician: Raffaele Olguin Performed By: Jose Sánchez RCS
[2020-02-15] MEDS: Insulin Lispro 100 UNIT/ML INSULN.PEN SC ×3 (06:42→16:23)
[2020-02-15 06:56] LABS: Bedside Glucose 259 mg/dL (70-110)
[2020-02-15] MEDS: Ipratropium/Albuterol Sulfate 3 ML AMPUL.NEB INHALATION ×4 (07:19→18:45)
[2020-02-15] MEDS: 0.9% Saline Lock 10 ML Syringe IV ×3 (08:00→16:27)
[2020-02-15] MEDS: Famotidine 20 MG Tablet PO ×2 (08:08→21:28)
[2020-02-15] MEDS: Furosemide 40 MG/4 ML Vial IV ×2 (08:08→16:27)
[2020-02-15] MEDS: guaiFENesin 1,200 MG Tablet 1200 MG PO ×2 (08:08→21:27)
[2020-02-15] MEDS: FLUoxetine 20 MG Capsule 60 MG PO (08:08)
[2020-02-15] MEDS: Metoprolol Tartrate 25 MG Tablet 12.5 MG PO (08:09)
[2020-02-15] MEDS: Insulin Lispro 100 UNIT/ML INSULN.PEN 40 UNIT SC ×2 (08:11→16:24)
[2020-02-15] MEDS: Venlafaxine HCl 75 MG Tablet PO (08:19)
[2020-02-15 11:31] LABS: Bedside Glucose 168 mg/dL (70-110)
--- NOTE | 2020-02-15 13:56 | PCM.PN.HOSP ---
Patient Problems: Active and Suspected Problems (Last Reviewed 12/23/17 @ 08:30 by Sarah Ma) COPD exacerbation (Acute) Reason for Visit: COPD Subjective: breathing well. Denies LE edema. Vitals/I&O's: Vital Signs Temp Pulse Resp BP Pulse Ox 36.6 C 79 18 132/83 H 93 02/15/20 08:20 02/15/20 11:30 02/15/20 11:30 02/15/20 08:20 02/15/20 11:27 Oxygen Flow Rate (L/min) 2 Oxygen Delivery Method Room Air Weight: 134.8 kg Body Mass Index (BMI) 37.1 Finger Stick Blood Glucose 142 Intake and Output for Last 24 Hours 02/13/20 02/14/20 02/15/20 23:59 23:59 23:59 Intake Total 200 / 200 950 / 950 720 / 720 Output Total 350 / 350 2600 / 2600 1100 / 1100 Balance -150 / -150 -1650 / -1650 -380 / -380 General: Alert, No apparent distress HEENT: Atraumatic, Normocephalic Oral: Moist Mucosa, No Gingival or Mucosal Lesions/ Ulcerations Neck: No JVD, No Nodes, Thyroid Normal Size and Texture Lungs: Clear to auscultation, Normal air movement, No rhonchi, No wheeze Cardiovascular: Regular rate, Regular Rhythm, Normal S1, Normal S2, No murmurs Abdomen: Bowel Sounds Present, Soft, Non Tender, Non-Distended, No Hepato-splenomegaly Extremities: No Calf Tenderness, Edema Skin: - - venous stasis dermatitis Musculoskeletal: No Tenderness to Palpation of Joints or Extremities, No Muscle Wasting Psych/Mental Status: Normal Affect, Appropriate Microbiology Past 72 Hours 02/12/20 21:45 Blood Culture (Wb) - Right Hand Blood Culture - Preliminary No growth in 48 hours. 02/12/20 19:55 Blood Culture (Wb) - Anticubital Right Blood Culture - Preliminary No growth in 48 hours. 02/13/20 00:20 Mucosa - Nasopharyngeal Respiratory Panel (PCR) - Final Rhinovirus Laboratory Results 02/14/20 16:56: POC Glucose 107 02/14/20 22:12: POC Glucose 123 H 02/15/20 06:40: POC Glucose 259 H 02/15/20 11:21: POC Glucose 168 H Current Medications Acetaminophen (Tylenol) 650 mg PO Q6H PRN PRN PRN Reason: Pain Score 1-10/Temp > 100.7 F Albuterol Sulfate (Ventolin Aerosols) 2.5 mg INHALATION Q2H PRN PRN PRN Reason: Dyspnea, wheezing Albuterol/Ipratropium (Duoneb) 3 ml INHALATION Q4HWA.RT [facility] Last Admin: 02/15/20 11:33 Dose: 3 ml Documented by: Cholecalciferol (Vitamin D (25mcg)) 1,000 unit PO DAILY [facility] Last Admin: 02/15/20 08:07 Dose: 1,000 unit Documented by: Famotidine (Pepcid) 20 mg PO BID [facility] Last Admin: 02/15/20 08:08 Dose: 20 mg Documented by: Fluoxetine HCl (Prozac) 60 mg PO DAILY [facility] Last Admin: 02/15/20 08:08 Dose: 60 mg Documented by: Furosemide (Lasix) 40 mg IV DAILY [facility] Stop: 02/16/20 10:01 Last Admin: 02/15/20 08:08 Dose: 40 mg Documented by: Guaifenesin (Mucinex) 1,200 mg PO BID [facility] Last Admin: 02/15/20 08:08 Dose: 1,200 mg Documented by: Hydralazine HCl (Apresoline Iv) 10 mg IV Q4H PRN PRN PRN Reason: SBP > 160 Insulin Glargine (Lantus (Bkc)) 65 units SC BID [facility] Last Admin: 02/15/20 08:09 Dose: 40 u Documented by: Insulin Human Lispro (Humalog Kwikpen (Bkc)) 0 unit SC ACHS [facility]; Protocol Last Admin: 02/15/20 11:23 Dose: 1 units Documented by: Insulin Human Lispro (Humalog Kwikpen (Bkc)) 40 unit SC DAILY [facility] Last Admin: 02/15/20 08:11 Dose: 36 u Documented by: Insulin Human Lispro (Humalog Kwikpen (Bkc)) 40 unit SC DINNER [facility] Last Admin: 02/14/20 18:11 Dose: Not Given Documented by: Levothyroxine Sodium (Synthroid) 175 mcg PO DAILY@0600 [facility] Last Admin: 02/15/20 05:12 Dose: 175 mcg Documented by: Melatonin (Melatonin) 3 mg PO QHS PRN PRN PRN Reason: INSOMNIA Methylprednisolone (Solu-Medrol) 40 mg IV Q12 [facility] Last Admin: 02/15/20 07:59 Dose: 40 mg Documented by: Metoprolol Tartrate (Lopressor (Beta Nayana)) 12.5 mg PO BID [facility] Last Admin: 02/15/20 08:09 Dose: 12.5 mg Documented by: Nitroglycerin (Nitrostat) 0.4 mg SUBLINGUAL Q5M PRN PRN Reason: CARDIAC/CHEST PAIN Ondansetron HCl (Zofran) 4 mg IV Q8H PRN PRN PRN Reason: NAUSEA/VOMITING Oxycodone HCl (Oxyir) 5 mg PO Q4H PRN PRN PRN Reason: Pain Score 4-5/10 Potassium Phos/Sodium Phos (Neutra-Phos Packet) 1 packet PO TID [facility] Stop: 02/16/20 15:44 Last Admin: 02/15/20 05:12 Dose: 1 packet Documented by: Pravastatin Sodium (Pravachol) 40 mg PO QHS [facility] Last Admin: 02/14/20 22:13 Dose: 40 mg Documented by: Prochlorperazine Edisylate (Compazine Iv) 5 mg IV Q4H PRN PRN PRN Reason: Breakthrough nausea/vomiting Psyllium Hydrophilic Mucilloid (Metamucil) 1 packet PO DAILY PRN PRN PRN Reason: Constipation Rivaroxaban (Xarelto) 20 mg PO DINNER [facility] Last Admin: 02/14/20 17:02 Dose: 20 mg Documented by: Senna/Docusate Sodium (Senokot-S, Jada-Colace) 2 tablet PO BID PRN PRN PRN Reason: Constipation Sodium Chloride () 10 - 40 ml IV UD PRN PRN Reason: SALINE FLUSH Last Admin: 02/15/20 08:08 Dose: 10 ml Documented by: Throat Lozenges (Cepacol Sore Throat Lozenge) 1 lozenge MUCOUS MEM Q2H PRN PRN PRN Reason: SORE THROAT Venlafaxine HCl (Effexor) 75 mg PO DAILY [facility] Last Admin: 02/15/20 08:19 Dose: 75 mg Documented by: STROKE Vital Signs/Narrative: Vital Signs Pulse Resp Pulse Ox Pulse Ox Pulse Ox 02/15/20 11:30 79 18 02/15/20 11:27 93 02/15/20 11:01 89 91 93 Medical Necessity - Tobacco Use Smoking Status: Former smoker Tobacco Use: Cigarettes Assessment/Plan All Active Problems (Last Reviewed 12/23/17 @ 08:30 by Sarah Ma) Acute back pain (Acute) COPD exacerbation (Acute) 1. Acute COPD exacerbation improving wean steroids and monitor continue BDs 2. acute HFpEF EF 55% still volume overloaded increase furosemide to BID monitor. 3. Tachycardia likely exacerbated by above with underlying afib on a very low dose of metoprolol tartrate, will increase to 25 BID 4. pAfib continue metoprolol tartrate and apixaban 5. VTE prophylaxis: LMWH DW patient's over the phone. Greater than 35 minutes of which greater than 50% of the time was counseled the patient and his about his status, the plan to watch patient another day with the adjustments of the medications and potential discharge on the . Inpatient E&M: [id number] [facility] Hosp L3
[2020-02-15] MEDS: Rivaroxaban 20 MG Tablet PO (16:27)
[2020-02-15 16:31] LABS: Bedside Glucose 186 mg/dL (70-110)
[2020-02-15 21:26] LABS: Bedside Glucose 127 mg/dL (70-110)
[2020-02-15] MEDS: Metoprolol Tartrate 25 MG Tablet PO (21:27)
[2020-02-15] MEDS: Pravastatin 40 MG Tablet PO (21:28)
[2020-02-16] VITALS (7 sets, daily range): BP systolic 123–134; BP diastolic 62–64; PULSE 61–94; RESP 18–20; TEMP 36.4–36.6; O2SAT 93
[2020-02-16] MEDS: Na Biphos/Potassium Phosphate PACKET 1 PACKET PO (06:23)
[2020-02-16] MEDS: Levothyroxine 175 MCG Tablet PO (06:23)
[2020-02-16 06:35] LABS: Bedside Glucose 98 mg/dL (70-110)
[2020-02-16] MEDS: Ipratropium/Albuterol Sulfate 3 ML AMPUL.NEB INHALATION (07:22)
--- NOTE | 2020-02-16 08:52 | DCINST_ITS ---
- Discharge Diagnoses Current Active Problems: Current Active and Chronic Problems (Last Reviewed 12/23/17 @ 08:30 by Sarah Ma) History of COPD (Chronic) PAF (paroxysmal atrial fibrillation) (Chronic) Obesity (BMI 30-39.9) (Chronic) Anxiety and depression (Chronic) COPD exacerbation (Acute) COPD with acute exacerbation (Chronic) You will use the following diet at home:: Cardiac Your food should be the consistency of: Regular Your liquids should be the consistency of: Regular/Thin Discharge Activity: Return to Normal Activity Call your doctor if you observe: Fever of 101 or Higher, Shortness of breath, Chest pain, Prolonged hiccoughing Instructions: Taking Medication to Control Heart Failure, What Is Heart Failure?, Heart Failure: Warning Signs of a Flare-Up, Heart Failure: Tracking Your Weight, Heart Failure: Being Active, Heart Failure: Making Changes to Your Diet Allergies/Adverse Reactions: Allergies No Known Allergies Allergy (Verified 02/13/20 00:51) Medications to take at Discharge Levothyroxine [Synthroid] 175 mcg PO DAILY 07/30/14 Pravastatin [Pravachol] 40 mg PO QHS 07/30/14 Venlafaxine HCl [Effexor] 75 mg PO DAILY 09/16/18 Cholecalciferol (VIT D3) [Vitamin D3] 1,000 unit PO DAILY #1 tablet 09/18/18 Albuterol Inhaler [Ventolin Hfa] 1 - 2 puff INHALATION Q4H PRN PRN #1 inhaler 08/16/19 Rivaroxaban [Xarelto] 20 mg PO DINNER 08/16/19 Fluoxetine [Prozac] 60 mg PO DAILY 02/12/20 Insulin Glargine,Hum.rec.anlog [Lantus Solostar] 50 unit SQ BID #1 injectable 02/16/20 Insulin Lispro [Humalog Kwikpen] 24 units SQ TIDCM #1 cartridge 02/16/20 Lisinopril [Zestril] 5 mg PO DAILY #30 tab 02/16/20 Metoprolol Tartrate [Lopressor (beta anthony)] 25 mg PO BID #60 tab 02/16/20 Prednisone 4 tab PO DAILY #20 tab 02/16/20 The following prescriptions were given: Insulin Lispro [Humalog Kwikpen] 24 units SQ TIDCM #1 cartridge Transmission Status: Pending to [facility]30 Metoprolol Tartrate [Lopressor (beta anthony)] 25 mg PO BID #60 tab Transmission Status: Pending to [facility]30 Prednisone 4 tab PO DAILY #20 tab Transmission Status: Pending to [facility] Lisinopril [Zestril] 5 mg PO DAILY #30 tab Transmission Status: Pending to [facility] Primary Care Physician: Raffaele Olguin MD [Primary Care Provider] - 02/22/20 Please follow up with your Primary Care Physician in: already scheduled Test Results: Test results from this visit will be discussed in further detail at your follow- up appointment, if applicable. Please Follow Up With: [facility] - heart failure When: 2-4 weeks Please Follow Up With: Jeremy Ovalle MD - COPD When: 2-4 weeks Proposed Discharge Date: 02/16/20
--- NOTE | 2020-02-16 08:55 | DS.PCM_ITS ---
Discharge Date and Diagnosis - Problem List Patient Problems: Active and Suspected Problems (Last Reviewed 12/23/17 @ 08:30 by Sarah Ma) COPD exacerbation (Acute) Date of Admission: 02/12/20 Date of Discharge: 02/16/20 - Primary Discharge Diagnosis Acute Problems: Active Problems (Last Reviewed 12/23/17 @ 08:30 by Sarah Ma) COPD exacerbation (Acute) acute HFpEF tachycardia, afib with RVR - Secondary Discharge Diagnosis Chronic Problems: Chronic Problems (Last Reviewed 12/23/17 @ 08:30 by Sarah Ma) DM type 2 (diabetes mellitus, type 2) (Chronic) Hypothyroidism (Chronic) Hyperlipidemia (Chronic) History of COPD (Chronic) PAF (paroxysmal atrial fibrillation) (Chronic) Obesity (BMI 30-39.9) (Chronic) Anxiety and depression (Chronic) COPD with acute exacerbation (Chronic) Poorly controlled type 2 diabetes mellitus (Chronic) With diet instruction and BG reading education patient has been trying to avoid high carb meals. Is getting up in the middle of the night and eating on occasion. reports he sneaks food at various times during the day. Still eats two meals daily Is beginning to understand importance of carb intake with each meal. He is able to see the difference in BG readings when his carb content is too high and/or varied. Enc consistency in diet Read labels. Consider 3 meals daily instead of two large meals. At this time nesha has much higher readings; in part due to prednisone use recently and continues to eat during night without insulin. I have ask him to stop eating in the night. Will increase his levemir to 55 units twice daily and if all BG above 200 he will increase to 60 units twice daily in 1 week. On statin Bp controlled Eye exam each year. Hospital Course and Treatment Imaging Results: Clinical Impression(s) from Imaging Studies Chest X-Ray 02/12/20 20:30 IMPRESSION: No acute process Electronically Signed: Jonny Oakley MD at 21:04 EDT , Service support , Operations: None Procedures: 2-D Echocardiogram - Normal LV size. Left ventricular systolic function is normal. The estimated ejection fraction is 55 %. Stage 3 diastolic dysfunction. Pulmonary artery systolic pressure is 30 mmHg. Summary of Care Provided: The patient is a 69 year old M presents with dyspnea and cough. Additionally, he was tachycardic, which appeared to be afib with RVR[] 1. Acute COPD exacerbation * improving * change steroids to prednisone 40mg burst * continue BDs * follow up with pulmonology 2. acute HFpEF * EF 55% * weight down slightly to 134.8, dry weight appears to be around 128 * increase furosemide to BID * monitor. 3. afib with RVR * still in Afib, but rate controlled * anticoagulated on rivaroxaban * on metoprolol 25 BID * follow up with cardiology as outpt 4. DM2 * fair control. will cut back basal and prandial dosing as steroid will decrease and potentially lead to hypoglycemia * however, will keep basal up from baseline at 50 BID (up from 40) and prandial 24 tid (up from BID) Patient Problems: Active and Suspected Problems (Last Reviewed 12/23/17 @ 08:30 by Sarah Ma) COPD exacerbation (Acute) - Physical Exam Vitals/I&O's: Vital Signs Temp Pulse Resp BP Pulse Ox 36.4 C L 89 20 H 123/62 H 93 02/16/20 01:44 02/16/20 07:22 02/16/20 07:22 02/16/20 01:44 02/16/20 07:21 Oxygen Flow Rate (L/min) 2 Oxygen Delivery Method Room Air Weight: 134.8 kg Body Mass Index (BMI) 37.1 Finger Stick Blood Glucose 142 Intake and Output for Last 24 Hours 02/14/20 02/15/20 02/16/20 23:59 23:59 23:59 Intake Total 950 / 950 720 / 720 Output Total 2600 / 2600 1700 / 1700 Balance -1650 / -1650 -980 / -980 General: Alert, Cooperative, No apparent distress HEENT: Atraumatic, Normocephalic Oral: Moist Mucosa, No Gingival or Mucosal Lesions/ Ulcerations Neck: No Nodes, Thyroid Normal Size and Texture Lungs: Clear to auscultation, Normal air movement, No rhonchi, No wheeze Cardiovascular: Regular rate, Regular Rhythm, Normal S1, Normal S2, No murmurs Abdomen: Bowel Sounds Present, Soft, Non Tender, Non-Distended, No Hepato- splenomegaly Extremities: No edema, No Calf Tenderness Psych/Mental Status: Normal Affect, Appropriate Microbiology Past 72 Hours 02/12/20 21:45 Blood Culture (Wb) - Right Hand Blood Culture - Preliminary No growth in 48 hours. 02/12/20 19:55 Blood Culture (Wb) - Anticubital Right Blood Culture - Preliminary No growth in 48 hours. 02/13/20 00:20 Mucosa - Nasopharyngeal Respiratory Panel (PCR) - Final Rhinovirus Laboratory Results 02/15/20 11:21: POC Glucose 168 H 02/15/20 16:21: POC Glucose 186 H 02/15/20 21:21: POC Glucose 127 H 02/16/20 06:28: POC Glucose 98 Current Medications Acetaminophen (Tylenol) 650 mg PO Q6H PRN PRN PRN Reason: Pain Score 1-10/Temp > 100.7 F Albuterol Sulfate (Ventolin Aerosols) 2.5 mg INHALATION Q2H PRN PRN PRN Reason: Dyspnea, wheezing Albuterol/Ipratropium (Duoneb) 3 ml INHALATION Q4HWA.RT [facility] Last Admin: 02/16/20 07:22 Dose: 3 ml Documented by: Cholecalciferol (Vitamin D (25mcg)) 1,000 unit PO DAILY [facility] Last Admin: 02/15/20 08:07 Dose: 1,000 unit Documented by: Famotidine (Pepcid) 20 mg PO BID [facility] Last Admin: 02/15/20 21:28 Dose: 20 mg Documented by: Fluoxetine HCl (Prozac) 60 mg PO DAILY [facility] Last Admin: 02/15/20 08:08 Dose: 60 mg Documented by: Furosemide (Lasix) 40 mg IV BIDLX [facility] Stop: 02/17/20 18:01 Last Admin: 02/15/20 16:27 Dose: 40 mg Documented by: Guaifenesin (Mucinex) 1,200 mg PO BID [facility] Last Admin: 02/15/20 21:27 Dose: 1,200 mg Documented by: Hydralazine HCl (Apresoline Iv) 10 mg IV Q4H PRN PRN PRN Reason: SBP > 160 Insulin Glargine (Lantus (Bkc)) 65 units SC BID [facility] Last Admin: 02/15/20 21:23 Dose: Not Given Documented by: Insulin Human Lispro (Humalog Kwikpen (Bk)) 0 unit SC [facility]; Protocol Last Admin: 02/16/20 06:28 Dose: Not Given Documented by: Insulin Human Lispro (Humalog Kwikpen (Bkc)) 40 unit SC DAILY [facility] Last Admin: 02/15/20 08:11 Dose: 36 u Documented by: Insulin Human Lispro (Humalog Kwikpen (Bkc)) 40 unit SC DINNER [facility] Last Admin: 02/15/20 16:24 Dose: 40 u Documented by: Levothyroxine Sodium (Synthroid) 175 mcg PO DAILY@0600 [facility] Last Admin: 02/16/20 06:23 Dose: 175 mcg Documented by: Melatonin (Melatonin) 3 mg PO QHS PRN PRN PRN Reason: INSOMNIA Methylprednisolone (Solu-Medrol) 20 mg IV Q12 [facility] Last Admin: 02/15/20 21:28 Dose: 20 mg Documented by: Metoprolol Tartrate (Lopressor (Beta Nayana)) 25 mg PO BID [facility] Last Admin: 02/15/20 21:27 Dose: 25 mg Documented by: Nitroglycerin (Nitrostat) 0.4 mg SUBLINGUAL Q5M PRN PRN Reason: CARDIAC/CHEST PAIN Ondansetron HCl (Zofran) 4 mg IV Q8H PRN PRN PRN Reason: NAUSEA/VOMITING Oxycodone HCl (Oxyir) 5 mg PO Q4H PRN PRN PRN Reason: Pain Score 4-5/10 Potassium Phos/Sodium Phos (Neutra-Phos Packet) 1 packet PO TID [facility] Stop: 02/16/20 15:44 Last Admin: 02/16/20 06:23 Dose: 1 packet Documented by: Pravastatin Sodium (Pravachol) 40 mg PO QHS [facility] Last Admin: 02/15/20 21:28 Dose: 40 mg Documented by: Prochlorperazine Edisylate (Compazine Iv) 5 mg IV Q4H PRN PRN PRN Reason: Breakthrough nausea/vomiting Psyllium Hydrophilic Mucilloid (Metamucil) 1 packet PO DAILY PRN PRN PRN Reason: Constipation Rivaroxaban (Xarelto) 20 mg PO DINNER [facility] Last Admin: 02/15/20 16:27 Dose: 20 mg Documented by: Senna/Docusate Sodium (Senokot-S, Jada-Colace) 2 tablet PO BID PRN PRN PRN Reason: Constipation Sodium Chloride () 10 - 40 ml IV UD PRN PRN Reason: SALINE FLUSH Last Admin: 02/15/20 16:27 Dose: 10 ml Documented by: Throat Lozenges (Cepacol Sore Throat Lozenge) 1 lozenge MUCOUS MEM Q2H PRN PRN PRN Reason: SORE THROAT Venlafaxine HCl (Effexor) 75 mg PO DAILY ELIE Last Admin: 02/15/20 08:19 Dose: 75 mg Documented by: Discharge Diet: Low fat/ Low Cholesterol Discharge Activity: Return to Normal Activity Call your doctor if you observe: Fever of 101 or Higher, Shortness of breath, Chest pain, Prolonged hiccoughing Home Medications: Medications to take at Discharge Levothyroxine [Synthroid] 175 mcg PO DAILY 07/30/14 Pravastatin [Pravachol] 40 mg PO QHS 07/30/14 Venlafaxine HCl [Effexor] 75 mg PO DAILY 09/16/18 Cholecalciferol (VIT D3) [Vitamin D3] 1,000 unit PO DAILY #1 tablet 09/18/18 Albuterol Inhaler [Ventolin Hfa] 1 - 2 puff INHALATION Q4H PRN PRN #1 inhaler 08/16/19 Rivaroxaban [Xarelto] 20 mg PO DINNER 08/16/19 Fluoxetine [Prozac] 60 mg PO DAILY 02/12/20 Insulin Glargine,Hum.rec.anlog [Lantus Solostar] 50 unit SQ BID #1 injectable 02/16/20 Insulin Lispro [Humalog Kwikpen] 24 units SQ TIDCM #1 cartridge 02/16/20 Lisinopril [Zestril] 5 mg PO DAILY #30 tab 02/16/20 Metoprolol Tartrate [Lopressor (beta nayana)] 25 mg PO BID #60 tab 02/16/20 Prednisone 4 tab PO DAILY #20 tab 02/16/20 Following Prescriptions Were Given to Patient: Insulin Lispro [Humalog Kwikpen] 24 units SQ TIDCM #1 cartridge Transmission Status: Pending to [facility] #30 Metoprolol Tartrate [Lopressor (beta nayana)] 25 mg PO BID #60 tab Transmission Status: Pending to [facility] #30 Prednisone 4 tab PO DAILY #20 tab Transmission Status: Pending to [facility] #30 Lisinopril [Zestril] 5 mg PO DAILY #30 tab Transmission Status: Pending to [facility] #30 Primary Care Physician: Raffaele Olguin MD [Primary Care Provider] - 02/22/20 Please follow up with your Primary Care Physician in: already scheduled Please Follow Up With: [facility] - heart failure When: 2-4 weeks Please Follow Up With: Jeremy Ovalle MD - COPD When: 2-4 weeks Patient Instructions: Taking Medication to Control Heart Failure, What Is Heart Failure?, Heart Failure: Warning Signs of a Flare-Up, Heart Failure: Tracking Your Weight, Heart Failure: Being Active, Heart Failure: Making Changes to Your Diet Disposition: Home Minutes spent on discharge:: 35 Patient Condition:: Fair Medical Necessity - Tobacco Use Smoking Status: Former smoker Tobacco Use: Cigarettes Meaningful Use Info Meaningful Use Diagnoses (Choose all that apply): CHF - CHF CHRISTIAN/ARB ordered at discharge?: Yes Documented LVEF (%): 55 Inpatient E&M: 13979 Disch Hosp
[2020-02-16] MEDS: Venlafaxine HCl 75 MG Tablet PO (10:32)
[2020-02-16] MEDS: FLUoxetine 20 MG Capsule 60 MG PO (10:32)
[2020-02-16] MEDS: Famotidine 20 MG Tablet PO (10:32)
[2020-02-16] MEDS: guaiFENesin 1,200 MG Tablet 1200 MG PO (10:32)
[2020-02-16] MEDS: Metoprolol Tartrate 25 MG Tablet PO (10:32)
--- NOTE | 2020-02-16 11:30 | PHA.DC.MC ---
Pharmacy Service has performed discharge medication reconciliation and counseling for this patient. The patient was counseled on the following discharge medications and changes in medications for homegoing were reviewed. 1. PREDNISONE 2. LOPRESSOR 3. LISINOPRIL 4. LANTUS / HUMALOG DOSE CHANGES The Reason for Use, instructions for use, and potential side effects were reviewed for all new medications. The patient's questions regarding all of their medications were answered. The patient/ patient's daughter demonstrated some understanding but would benefit from further education and reinforcement. Home Medications Levothyroxine [Synthroid] 175 mcg PO DAILY 07/30/14 Pravastatin [Pravachol] 40 mg PO QHS 07/30/14 Venlafaxine HCl [Effexor] 75 mg PO DAILY 09/16/18 Cholecalciferol (VIT D3) [Vitamin D3] 1,000 unit PO DAILY #1 tablet 09/18/18 Albuterol Inhaler [Ventolin Hfa] 1 - 2 puff INHALATION Q4H PRN PRN #1 inhaler 08/16/19 Rivaroxaban [Xarelto] 20 mg PO DINNER 08/16/19 Fluoxetine [Prozac] 60 mg PO DAILY 02/12/20 Insulin Glargine,Hum.rec.anlog [Lantus Solostar] 50 unit SQ BID #1 injectable 02/16/20 Insulin Lispro [Humalog Kwikpen] 24 units SQ TIDCM #1 cartridge 02/16/20 Lisinopril [Zestril] 5 mg PO DAILY #30 tab 02/16/20 Metoprolol Tartrate [Lopressor (beta anthony)] 25 mg PO BID #60 tab 02/16/20 Prednisone 4 tab PO DAILY #20 tab 02/16/20 The patient's discharge medication list was reviewed for discrepancies. *Primary Care physician to follow-up with changing medications/ discontinuing an agent. pt on duplicate SSRI (prozac/effexor)*
--- NOTE | 2020-02-17 13:16 | CASEMGMT ---
MG ANDERSON DC PHONE CALL DC DATE: 02/16/2020 DC DISPOSITION: DC DIAGNOSIS: COPD exacerbation LACE/STRATA: 13/08 F/U APPTS MADE PRIOR TO DC: yes PRESCRIPTIONS ACQUIRED BY PT: yes Introduced role of CM to patient's . is out of town, but has been in contact with patient and states her family who is an [employer] is assisting with the patient's medications and care needs. states she is coming home tomorrow. is aware the patient has follow up appointments and no questions re: this. Galen BURGOSN RN ACM
== END 2020-02-16 11:03 | disposition home or self-care (01) | DRG 190 ==
LOC: ED 23:17 → MS3 23:24
PROVIDERS: Internal Medicine; Admitting Provider Family Medicine; Emergency Provider Emergency Medicine; PCP Family Medicine
DX: J44.1 Chronic obstructive pulmonary disease with (acute) exacerbation (principal); I50.31 Acute diastolic (congestive) heart failure; J44.0 Chronic obstructive pulmonary disease with (acute) lower respiratory infection; J20.6 Acute bronchitis due to rhinovirus; E11.65 Type 2 diabetes mellitus with hyperglycemia; E03.9 Hypothyroidism, unspecified; E78.5 Hyperlipidemia, unspecified; I48.0 Paroxysmal atrial fibrillation; F32.9 Major depressive disorder, single episode, unspecified; F41.9 Anxiety disorder, unspecified; E66.01 Morbid (severe) obesity due to excess calories; Z87.891 Personal history of nicotine dependence; Z68.37 Body mass index [BMI] 37.0-37.9, adult
CPT/HCPCS: 36415; 71045; 80048; 80053; 82962; 83605; 83735; 83880; 84100; 84484; 85025; 85610; 85730; 87040; 87633; 87635; 93005; 93306; 94640; 94667; 94668; 97116; 97162; 97166; 97530; 99251; 99283; C9803; Q9957; A4216; C8929; G0463; J1940; U0003

== ENCOUNTER → 2020-02-22 12:42 | Outpatient (CLI) | payer MEDICARE, OTHER, SELFPAY ==
[2020-02-13 00:08] VITALS: BMI 37.1
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
== END ==
PROVIDERS: PCP Family Medicine; Referring Provider Family Medicine; Visit Provider Family Medicine
DX: R09.89 Other specified symptoms and signs involving the circulatory and respiratory systems (principal)
CPT/HCPCS: 74230; 92611

== ENCOUNTER → 2020-04-14 10:01 | Outpatient (CLI) | payer MEDICARE, OTHER, SELFPAY ==
[2020-03-14 10:36] VITALS: BMI 36.8
[2020-04-14 12:56] LABS: Absolute Lymphocyte Count 2.21 X10^3/uL (0.83-4.51); Absolute Neutrophil Count 4.7 X10^3/uL (2.0-7.7); Basophil# 0.03 X10^3/uL; Basophil% 0.4 % (0-1); Eosinophil# 0.18 X10^3/uL; Eosinophils% 2.3 % (0-5); Hematocrit 40.9 % (40-54); Hemoglobin 13.1 g/dL (13.0-16.5); Lymphocyte # 2.21 X10^3/ul (4.0); Lymphocyte % 27.9 % (19-41); Mean Corpuscular Hgb 30.4 pg (27.0-32.0); Mean Corpuscular Volume 94.9 fL (80-94); Mean Platelet Vol. 12.9 fl (6.2-12.0); Monocyte% 10.1 % (0-10); NRBC Flagged by Analyzer 0 % (0-5); Neutrophil # 4.66 X10^3/uL (2.7-7.7); Neutrophil % 58.7 % (47-70); Platelet Count 130 K/mm3 (150-450); RBC Distribution Width CV 14.8 % (11.6-14.6); RBC Distribution Width SD 51.8 fl (35.1-43.9); RET-HE 35.8 pg (30-35); Red Blood Count 4.31 M/mm3 (4.6-6.2); Reticulocyte Count 1.68 % (0.5-1.5); White Blood Count 7.9 K/mm3 (4.4-11.0)
[2020-04-14 13:15] LABS: Ferritin 259 ng/mL (26-388); Iron 95 ug/dL (65-175); Iron Binding Capacity,Total 298 ug/dL (250-450); PERCENT IRON SATURATION 31.9 % (15.0-55.0)
== END ==
PROVIDERS: PCP Family Medicine; Referring Provider Family Medicine; Visit Provider Family Medicine
DX: R19.7 Diarrhea, unspecified (principal); D64.9 Anemia, unspecified
CPT/HCPCS: 36415; 82728; 83010; 83540; 83550; 85025; 85045

== ENCOUNTER → 2020-04-22 10:13 | Outpatient (CLI) | payer MEDICARE, OTHER, SELFPAY ==
[2020-03-14 10:36] VITALS: BMI 36.8
[2020-04-27 11:58] LABS: pH, Stool 6.5 (7.0-7.5)
== END ==
PROVIDERS: PCP Family Medicine; Referring Provider Family Medicine; Visit Provider Family Medicine
DX: R19.7 Diarrhea, unspecified (principal); D64.9 Anemia, unspecified
CPT/HCPCS: 83630; 83986; 87493; 87506

== ENCOUNTER → 2020-06-14 10:38 | Outpatient (CLI) | payer MEDICARE, OTHER, SELFPAY ==
[2020-03-14 10:36] VITALS: BMI 36.8
--- NOTE | 2020-06-16 13:03 | PFT ---
INTRODUCTION: The patient is a 70-year-old male that presents for pulmonary function studies secondary to a diagnosis of bronchiectasis. Respiratory therapy reports good patient effort. Bronchodilators were used during testing. INTERPRETATION: Forced expiration spirometry demonstrates no evidence of a large airways obstructive ventilatory defect. However, there is subtle stigmata of small airways disease with significant mid flow bronchodilator response. Spirograms are of good quality and plateau normally. Body plethysmography was performed and reveals a decreased TLC to 5.16 L, 65% of predicted, indicative of a moderate restrictive ventilatory impairment. The remainder of the lung volumes are symmetrically reduced. Diffusing capacity by single breath CO is reduced at 58% of predicted. IMPRESSION: Moderate restrictive ventilatory impairment with symmetric reduction in diffusing capacity.
== END ==
PROVIDERS: PCP Family Medicine; Referring Provider Internal Medicine Critical Care Medicine; Visit Provider Internal Medicine Critical Care Medicine
DX: J47.9 Bronchiectasis, uncomplicated (principal)
CPT/HCPCS: 94060; 94726; 94729

== ENCOUNTER → 2020-06-20 12:04 | Outpatient (CLI) | payer MEDICARE, OTHER, SELFPAY ==
[2020-06-20 11:10] VITALS: BMI 37.3
== END ==
PROVIDERS: PCP Family Medicine; Referring Provider Nurse Practitioner Acute Care; Visit Provider Nurse Practitioner Acute Care
DX: J47.9 Bronchiectasis, uncomplicated (principal)
CPT/HCPCS: 94667

== ENCOUNTER 2020-08-14 12:50 | Observation (INO) | payer MEDICARE, OTHER, SELFPAY ==
[2020-06-20 11:10] VITALS: BMI 37.3
[2020-08-14] VITALS (9 sets, daily range): BP systolic 85–117; BP diastolic 53–71; PULSE 51–78; RESP 14–18; TEMP 36.1–36.4; O2SAT 94–96; BMI 37.8; BMI 37.0
[2020-08-14 13:11] LABS: Bedside Glucose 59 mg/dL (70-110)
--- NOTE | 2020-08-14 13:15 | CT_ITS ---
EXAM: CT HEAD WITHOUT INTRAVENOUS CONTRAST CLINICAL INDICATION: Fall TECHNIQUE: Multiple axial images were obtained of the head without intravenous contrast. This CT exam was performed using one or more of the following dose reduction techniques: automated exposure control, adjustment of the mA and/or kV according to patient size, and/or use of iterative reconstruction technique. This report was created using [employer] report generation technology. COMPARISON: 09/11/2018 FINDINGS: BRAIN AND EXTRA-AXIAL SPACES: Encephalomalacia/scoliosis of the left frontal lobe and right occipital lobe compatible with prior infarctions, stable. Central parenchymal volume loss. White matter changes that are nonspecific but most commonly associated with chronic small vessel ischemic disease. No intra- or extra-axial hemorrhage. No intracranial mass or mass effect. Posterior fossa structures are unremarkable. Ventricles are appropriate for age. No hydrocephalus. Basal cisterns are patent. BONES/JOINTS: See above. SINUSES: Unremarkable as visualized. Clear. MASTOID AIR CELLS: Unremarkable. Clear. ORBITS: Visualized globes, extraocular muscles, optic nerves and retrobulbar fat appear unremarkable. CT/Brain/Head without Contrast IMPRESSION: 1. No acute intracranial hemorrhage or mass effect. 2. 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 Electronically Signed: Emmanuel Benitez MD (Brooks) at 14:10 EDT , Service support ,
--- NOTE | 2020-08-14 13:15 | EKG12_ITS ---
Test Reason : FALL Blood Pressure : / mmHG Vent. Rate : 052 BPM Atrial Rate : 441 BPM P-R Int : 000 ms QRS Dur : 148 ms QT Int : 462 ms P-R-T Axes : 000 008 034 degrees QTc Int : 429 ms Atrial fibrillation with slow ventricular response Right bundle branch block Abnormal ECG Confirmed by DEE BLAS, MARTHA ([id number]), book or script editor CAMPOS PIERCE ([id number]) on 08/17/2020 10:00:22 AM Referred By: KWAME Confirmed By:MARTHA PRICE MD
--- NOTE | 2020-08-14 13:16 | RAD_ITS ---
STUDY: X-RAY - LEFT SHOULDER REASON FOR EXAM: Male, 70 years old. Injury/Pain TECHNIQUE: 2 view(s) of the shoulder. COMPARISON: Chest radiograph dated 02/12/2020 FINDINGS: There is a lucency within the distal left clavicle consistent with a fracture. There are degenerative changes of the glenohumeral articulation. There are degenerative changes of the acromioclavicular joint. Normal acromion. Normal humeral head and visualized proximal humerus. The soft tissue structures are unremarkable. There are stable chronic interstitial markings within the visualized left lung. RAD/Shoulder min 2 Views IMPRESSION: Distal left clavicular fracture. Degenerative changes. Electronically Signed: Lauren Soriano MD at 14:25 EDT Tel , Service support ,
--- NOTE | 2020-08-14 13:16 | RAD_ITS ---
STUDY: X-RAY CHEST REASON FOR EXAM: Male, 70 years old. Cough TECHNIQUE: Single frontal view of the chest. COMPARISON: 02/12/2020 FINDINGS: There is persistent elevation of the left hemidiaphragm. There is stable minimal left basilar atelectasis. There is no new focal consolidation. There are stable prominent interstitial markings. There is stable mild cardiomegaly. Normal mediastinum and jewel. Normal visualized pulmonary arteries. Normal visualized aortic arch and descending thoracic aorta. Normal visualized thoracic spine. Normal visualized ribs, clavicles, and shoulders. There is no demonstrated abnormality of the visualized soft tissue structures of the upper abdomen. RAD/Chest 1 View (Portable) IMPRESSION: Stable examination demonstrating no acute cardiopulmonary process. Electronically Signed: Lauren Soriano MD at 14:19 EDT Tel , Service support ,
[2020-08-14 13:25] LABS: Basophil# 0.04 X10^3/uL; Basophil% 0.4 % (0-1); Eosinophils% 4.5 % (0-5); Hematocrit 40.8 % (40-54); Hemoglobin 12.9 g/dL (13.0-16.5); Lymphocyte % 27.8 % (19-41); Mean Corp Hgb Conc 31.6 g/dL (32-36); Mean Corpuscular Hgb 30.6 pg (27.0-32.0); Mean Corpuscular Volume 96.9 fL (80-94); Mean Platelet Vol. 12.7 fl (6.2-12.0); Monocyte# 0.91 X10^3/uL; Monocyte% 10.1 % (0-10); NRBC Flagged by Analyzer 0 % (0-5); Neutrophil # 5.04 X10^3/uL (2.7-7.7); Neutrophil % 56.2 % (47-70); Platelet Count 131 K/mm3 (150-450); RBC Distribution Width CV 13.5 % (11.6-14.6); RBC Distribution Width SD 48.8 fl (35.1-43.9); Red Blood Count 4.21 M/mm3 (4.6-6.2)
--- NOTE | 2020-08-14 13:34 | ED.DCSUM_ITS ---
- ER Visit Summary Date of Service: 08/14/20 Chief Complaint: Fall History of Present Illness: The patient is a [address] Raffaele Olguin. He is a poor informant. 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 States he has left shoulder pain that is not real bad. It is increased with movement. Patient does report he had a loss of consciousness. He denies any neck, back, wrist, or hip pain. On squad arrival they found the patient's blood sugar was 40. He states that all he ate for breakfast was a pop tart because of the cereals that were there he did not like. Physical Examination: Vitals: 97.0, 92/59, 52, 18, 96% on room air which is not hypoxic General: Well-nourished and well-developed. Head: Normocephalic. He has abrasions to his forehead and between his eyebrows and to the right side of his mandible. He reports that these are old. Neck: Supple, no lymphadenopathy. No JVD. Nontender. Full range of motion without any difficulty. Cardiovascular: Irregular bradycardic rhythm. No murmurs. Respiratory: No respiratory distress. Clear to auscultation bilaterally. Abdominal: Soft, nontender, nondistended, normal bowel sounds. No guarding, rebound, or peritoneal signs. Back: Nontender. Extremities: Moderate tenderness to palpation over the left shoulder. He has decreased range of motion secondary to pain, no edema. Skin: Multiple superficial ulcers to the left arm with minimal erythema, no rash. Neurologic: Alert and oriented ?3. Cranial nerves II through XII are intact. Normal strength and sensation. Psych: Normal affect. Test Results: EKG is A. fib at 52 with right bundle branch block. The only change since February 2020 is the rate. Troponin 0 0.051. Lactic acid is 1.6. LFTs show globulin 4.3. Chem-7 shows a glucose of 63 and BUN of 22. CBC shows a hemoglobin of 12.9, platelets 131, and showed granulocytes of 1%. TSH is 3.13. Urinalysis shows no evidence of infection. Clinical Impression(s) from Imaging Studies Brain CT 08/14/20 13:15 IMPRESSION: 1. No acute intracranial hemorrhage or mass effect. 2. 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 Electronically Signed: Emmanuel Benitez MD ([place]) at 14:10 EDT , Service support , Chest X-Ray 08/14/20 13:16 IMPRESSION: Stable examination demonstrating no acute cardiopulmonary process. Electronically Signed: Lauren Soriano MD at 14:19 EDT Tel , Service support , ADDENDUM: 08/14/20 1430 Shoulder X-Ray 08/14/20 13:16 IMPRESSION: Distal left clavicular fracture. Degenerative changes. Electronically Signed: Lauren Soriano MD at 14:25 EDT Tel , Service support , Emergency Department Course and Treatment: Patient was given Tylenol p.o. He had his tetanus updated. He ate here and is resting more comfortably. He remains bradycardic. Patient does report he is on 25 mg of metoprolol twice daily. He is sure that he did not take an extra dose of this. He was given 700 cc of normal saline and his blood pressure is currently 122/64. Treatment Plan: Reviewed the patient's prior visits he has never been bradycardic or hypotensive like this before. He has an indeterminate troponin and hypoglycemia. He will be discussed with the hospitalist and admitted for further evaluation and treatment. Disposition: Admitted in serious condition. Impression: 1. Fall. 2. Atrial fibrillation with slow ventricular response on metoprolol. 3. Hypertension. 4. Hyperglycemia with jni-xruspag-[id number] diabetes mellitus. 5. Indeterminate troponin. 6. Left clavicle fracture. 7. Coagulopathy on Xarelto. This note was generated with [employer] software. It may contain incorrect words, spelling, and punctuation that were not noted in review of the chart prior to signing ED Disposition - Plan for ED Patient: Referrals: Raffaele Olguin MD [Primary Care Provider] -
[2020-08-14 13:48] LABS: ALB/GLOB Ratio 0.7 RATIO (0.9-2.4); AST(SGOT) 25 U/L (15-37); Alanine Aminotransfer ALT/SGPT 21 U/L (16-61); Albumin, Serum 3.2 g/dL (3.2-5.0); Alkaline Phosphatase 77 U/L (45-117); Anion Gap 4 (5-15); BUN 22 mg/dL (7-18); Chloride 104 mmol/L (98-107); EST Glomerular Filtration Rate 70 mL/min (>60); Est Glom Filt Rate - Afr Amer 85 mL/min (>60); Estimated Creatinine Clearance 72.55 ml/min; Globulin 4.3 g/dL (2.2-4.2); Glucose 63 mg/dL (74-106); Potassium 4.5 mmol/L (3.5-5.1); Protein, Total 7.5 g/dL (6.4-8.2); Sodium Level 138 mmol/L (136-145); Thyroid Stim Hormone (TSH) 3.13 uIU/mL (0.358-3.74)
[2020-08-14 14:01] LABS: Lactic Acid 1.6 mmol/L (0.4-1.9)
[2020-08-14] MEDS: Acetaminophen 500 MG Tablet 1000 MG PO (14:03)
[2020-08-14 14:06] LABS: Bedside Glucose 113 mg/dL (70-110)
[2020-08-14 14:45] LABS: Mucous, Urine 0 SEEN /hpf (<or=2+); Red Blood Cells-Urine 0 SEEN /hpf (0-5)
[2020-08-14 14:46] LABS: Color, Urine Yellow (Yellow); Glucose, Dipstick Normal (Normal); Ketone-Dipstick Negative (Negative); Leukocyte Esterase-Dipstick 25 /ul (Negative); Nitrite-Dipstick Negative (Negative); Occult Blood-Urine Negative /ul (Negative); Protein-Dipstick Negative (Negative); Specific Gravity, Urine 1.015 (1.002-1.030); Urine Bilirubin Dipstick Negative (Negative); Urine Clarity Sl. Cloudy (Clear); Urine Urobilinogen 1 mg/dl (Normal)
[2020-08-14 14:52] LABS: Bacteria RARE /hpf (None Seen); Hyaline Cast 0-5 SEEN /lpf (0-5); Squamous Epithelial Cells - UA 0-5 SEEN /hpf (0-5); White Blood Cells 0-5 SEEN /hpf (0-5)
--- NOTE | 2020-08-14 15:12 | HP.PCM_ITS ---
Problem List (1) Bronchiectasis Status: Chronic Qualifiers: (2) Chronic diastolic (congestive) heart failure Status: Chronic (3) Left ventricular diastolic dysfunction Status: Chronic (4) Longstanding persistent atrial fibrillation Status: Chronic (5) Right bundle branch block (RBBB) Status: Chronic (6) Essential (primary) hypertension Status: Chronic (7) Hyperlipidemia Status: Chronic Qualifiers: (8) COPD (chronic obstructive pulmonary disease) Status: Chronic History of Present Illness Date of Admission: 08/14/20 Chief Complaint: Fall. The patient is a 70 year old M who presents to the emergency room secondary to fall. 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 Patient states this is happened in the past when he is bent over to pick something up. He denies dizziness or lightheadedness prior to episode. He is not sure if he passed out or not but does not recall passing out. He states he used his phone to call his granddaughter who is in the house and she called the emergency squad. Patient states he took his insulin and oral medication in the morning and had only eaten a pop tart. EMS notes his blood glucose was in the 40s and he was also noted to be bradycardic in the 40s as well. He complains of left shoulder area pain. Otherwise denies current symptoms. He has a past medical history of chronic atrial fibrillation on Xarelto, type 2 diabetes mellitus, chronic diastolic CHF, chronic COPD/bronchiectasis, hypertension, hyperlipidemia, obesity, anxiety, depression, hypothyroidism. Past Medical History Past Medical History (Chronic Problems): Chronic Problems (Last Reviewed 06/20/20 @ 11:00 by Romina Abreu) Bronchiectasis (Chronic) Chronic diastolic (congestive) heart failure (Chronic) Left ventricular diastolic dysfunction (Chronic) Longstanding persistent atrial fibrillation (Chronic) Right bundle branch block (RBBB) (Chronic) Essential (primary) hypertension (Chronic) Hyperlipidemia (Chronic) COPD (chronic obstructive pulmonary disease) (Chronic) Medical History: Medical History (Last Reviewed 06/20/20 @ 11:00 by Romina Abreu) Chronic diastolic (congestive) heart failure (Chronic) I50.32 Left ventricular diastolic dysfunction (Chronic) I51.9 Longstanding persistent atrial fibrillation (Chronic) I48.11 Right bundle branch block (RBBB) (Chronic) I45.10 Essential (primary) hypertension (Chronic) I10 Hyperlipidemia (Chronic) E78.5 COPD (chronic obstructive pulmonary disease) (Chronic) J44.9 Anxiety and depression F41.9, F32.9 Back problem M53.9 DM type 2 (diabetes mellitus, type 2) E11.9 Hypothyroidism E03.9 Obesity (BMI 30-39.9) E66.9 Poorly controlled type 2 diabetes mellitus E11.65 Head trauma S09.90XA Hx of transfusion of whole blood Z92.89 Sepsis A41.9 Allergies No Known Allergies Allergy (Verified 08/14/20 13:06) Home Medications: Ambulatory Orders Medication Instructions Recorded Levothyroxine [Synthroid] 175 mcg PO DAILY 07/30/14 Pravastatin [Pravachol] 40 mg PO QHS 07/30/14 Cholecalciferol (VIT D3) [Vitamin 1,000 unit PO DAILY #1 tab 09/18/18 D3] Albuterol Inhaler [Ventolin Hfa] 1 - 2 puff INHALATION Q4H PRN PRN 08/16/19 #1 inhaler Rivaroxaban [Xarelto] 20 mg PO DINNER 08/16/19 furosemide 20 mg tablet 40 mg PO DAILY tab 03/02/20 insulin glargine 100 unit/mL (3 50 unit SC DAILY ml 03/02/20 mL) subcutaneous pen lisinopril 5 mg tablet 5 mg PO DAILY #90 tab 03/02/20 metformin 500 mg tablet,extended 1,000 mg PO DAILY tab 03/02/20 release 24 hr metoprolol tartrate 25 mg tablet 25 mg PO BID #180 tab 03/02/20 PEP device See Rx Instructions .ROUTE 06/20/20 .MEDSUPPLY #1 ea Calcium Carbonate 600 mg PO QHS 08/14/20 Duloxetine Hcl [Cymbalta] 60 mg PO DAILY 08/14/20 Ferrous Sulfate 325 mg PO BID 08/14/20 Insulin Glargine [Lantus (BKC)] 10 units SC QHS 08/14/20 Insulin Lispro [Humalog Kwikpen] 26 units SQ BIDCM 08/14/20 Lipase/Protease/Amylase [Pedro Ayala 1 ea PO TID 08/14/20 24,000 Units Capsule] Umeclidinium Brm/Vilanterol Tr 1 ea IH DAILY PRN PRN 08/14/20 [Anoro Ellipta 62.5-25 Mcg INH] Surgical History: Surgical History (Last Reviewed 06/20/20 @ 11:00 by Romina Abreu) H/O hernia repair Z98.890, Z87.19 Surgical History: herniorrhaphy, - - Hernia repair, back surgery, foot surgeries. Psychiatric History: Anxiety, Depression Lives: Spouse/ Significant Other Smoking Status: Former smoker Alcohol: None Drugs: None - *Family History Paternal Family History: Family History (Last Reviewed 08/14/20 @ 15:22 by Romina Orosco NP, WOOD MACHINIST APPRENTICE-C) Mother Cancer History Items: - - Patient notes that his father lived into his old age without specific diseases including heart disease, diabetes, cancer. Maternal Family History: Family History (Last Reviewed 08/14/20 @ 15:22 by Romina Orosco NP, WOOD MACHINIST APPRENTICE-C) Mother Cancer History Items: Cancer Review of Systems Constitutional: Denies: Chills, Fever, Weight Change HEENT: Denies: Head Aches, Sinus Congestion, Sinus Drainage Cardiovascular: Denies: Chest Pain, Palpitations Respiratory: Denies: Cough, Shortness of breath at rest, Sputum production Gastrointestinal: Denies: Abdominal Pain, Nausea, Vomiting Genitourinary: Denies: Dysuria Musculoskeletal: Reports: Shoulder Pain - L Skin: Reports: - - Facial abrasions. Denies: Rash, Wounds Neurological: Denies: Numbness, Tingling, Focal weakness Psychiatric: Reports: Anxiety, Depression. Denies: Homicidal Ideations, Suicidal Ideations Hematologic/ Lymphatic: Denies: Easy Bruising, Easy Bleeding VTE Information - Inpt Only VTE Present on Admission: No VTE Mechan Device Prophylaxis: None VTE Pharm Prophylaxis ordered?: No Reason prophylaxis not ordered:: Treatment Not Indicated - Already on anticoagulation with Eliquis - Physical Exam Vitals/I&O's: Vital Signs Temp Pulse Resp BP Pulse Ox 97 F L 53 L 14 94/57 L 95 08/14/20 12:52 08/14/20 14:51 08/14/20 14:51 08/14/20 14:51 08/14/20 14:51 Oxygen Delivery Method Room Air Weight: 302 lb 11.115 oz Body Mass Index (BMI) 37.8 Finger Stick Blood Glucose 113 Intake and Output for Last 24 Hours 08/12/20 08/13/20 08/15/20 23:59 23:59 00:59 Intake Total 500 / 500 Balance 500 / 500 General: Alert, Oriented x3, Cooperative HEENT: Atraumatic, PERRLA, EOMI, Normocephalic Neck: Supple, No JVD, Negative Carotid Bruits Lungs: Clear to auscultation, Normal air movement Cardiovascular: Regular rate, - - Atrial fibrillation Abdomen: Bowel Sounds Present, Soft, Non Tender, Non-Distended Extremities: No clubbing, No cyanosis, No edema, Capillary Refill Less than 3 Seconds Skin: No rashes, No breakdown, - - Scattered facial abrasions Musculoskeletal: Tenderness - Left shoulder, clavicle area Neurological: Cranial nerves II-XII grossly intact, Neuro grossly intact Psych/Mental Status: Normal Affect, Appropriate Laboratory Results 08/14/20 12:58: POC Glucose 59 L 08/14/20 13:05: WBC 9.0, RBC 4.21 L, Hgb 12.9 L, Hct 40.8, MCV 96.9 H, MCH 30.6, MCHC 31.6 L, RDW Std Deviation 48.8 H, RDW Coeff of Marifer 13.5, Plt Count 131 L, MPV 12.7 H, Immature Gran % (Auto) 1.000 H, Neut % (Auto) 56.2, Lymph % (Auto) 27.8, Meriwether % (Auto) 10.1 H, Eos % (Auto) 4.5, Baso % (Auto) 0.4, Absolute Neuts (auto) 5.0, Absolute Lymphs (auto) 2.50, Nucleated RBC % 0 08/14/20 13:05: Sodium 138, Potassium 4.5, Chloride 104, Carbon Dioxide 30.0, Anion Gap 4 L, BUN 22 H, Creatinine 1.10, Estim Creat Clear Calc 72.55, Est GFR (MDRD) Af Amer 85, Est GFR (MDRD) Non-Af 70, BUN/Creatinine Ratio 20.0, Glucose 63 L, Calcium 9.0, Total Bilirubin 0.60, AST 25, ALT 21, Alkaline Phosphatase 77, Troponin I 0.051 H, Total Protein 7.5, Albumin 3.2, Globulin 4.3 H, Al bumin/Globulin Ratio 0.7 L, TSH 3.13 08/14/20 13:30: Lactic Acid 1.6 08/14/20 13:56: POC Glucose 113 H 08/14/20 14:37: Urine Color Yellow, Urine Clarity Sl. Cloudy, Urine pH 6.0, Ur Specific [place]met[place] 1.015, Urine Protein Negative, Urine Glucose (UA) Normal, Urine Ketones Negative, Urine Occult Blood Negative, Urine Nitrite Negative, Urine Bilirubin Negative, Urine Urobilinogen 1 H, Ur Leukocyte Esterase 25 H, Urine RBC 0 SEEN, Urine WBC 0-5 SEEN, Ur Squamous Epith Cells 0-5 SEEN, Urine Bacteria RARE, Hyaline Casts 0-5 SEEN, Urine Mucus 0 SEEN Assessment/Plan All Active Problems (Last Reviewed 06/20/20 @ 11:00 by Romina Abreu) Acute back pain (Resolved) 1. Fall with traumatic left clavicular fracture-suspect fall related to hypoglycemia and bradycardia. Brain CT negative for acute process. Shoulder x- ray due to report of pain demonstrated distal left clavicular fracture. PT/OT. PRN pain regimen. Left arm sling as needed for comfort. 2. Chronic atrial fibrillation with bradycardia-hold metoprolol. Continue Xarelto. 3. Hypotension-hold BP regimen. IV fluids. 4. Type 2 diabetes mellitus- Hold oral regimen. Accu-Cheks with sliding scale insulin. Hold home insulin regimen. Check hemoglobin A1c. 5. Indeterminate troponin- no EKG changes. Trend enzymes. 6. Chronic diastolic CHF-echocardiogram February 2020 demonstrated an EF of 55%, stage III diastolic dysfunction. 7. Chronic COPD/bronchiectasis-as needed albuterol aerosol. 8. Hypertension- hold BP regimen including lasix, lisinopril, metoprolol pending improvement of BP. 9. Hyperlipidemia- continue statin. 10. Obesity- encouraged diet and lifestyle modifications. 11. Anxiety/depression-continue duloxetine. 12. Hypothyroidism-continue Synthroid. DVT prophylaxis- Xarelto Code status: Discussed with , requested full CODE STATUS. This patient was seen by MAE Gallagher under the supervision of Dr. Gaston.
--- NOTE | 2020-08-14 15:36 | NURSING ---
PCU WHITE AFIB WITH SLOW VENTRICULAR RESPONSE, HYPOTENSION OBS
[2020-08-14 16:36] LABS: Bedside Glucose 94 mg/dL (70-110)
[2020-08-14 16:48] LABS: Hemoglobin A1c 6.8 % (3.8-5.6)
[2020-08-14] MEDS: Ferrous Sulfate 325 MG Tablet PO (16:56)
[2020-08-14] MEDS: Rivaroxaban 20 MG Tablet PO (16:56)
[2020-08-14] MEDS: 0.9% Saline Lock 10 ML Syringe IV (16:56)
[2020-08-14] MEDS: 0.9% Normal Saline 1,000 ML 75 ML IV (16:56)
[2020-08-14 16:57] LABS: Magnesium 2.1 mg/dL (1.6-2.6); Thyroid Stim Hormone (TSH) 2.28 uIU/mL (0.358-3.74)
[2020-08-14] MEDS: Pravastatin 40 MG Tablet PO (21:30)
[2020-08-14 22:26] LABS: Bedside Glucose 149 mg/dL (70-110)
[2020-08-15] VITALS (7 sets, daily range): BP systolic 95–117; BP diastolic 54–70; PULSE 56–91; RESP 16–20; TEMP 36.5–37; O2SAT 94–99
[2020-08-15 06:02] LABS: Absolute Lymphocyte Count 1.74 X10^3/uL (0.83-4.51); Absolute Neutrophil Count 4.2 X10^3/uL (2.0-7.7); Basophil# 0.04 X10^3/uL; Basophil% 0.6 % (0-1); Eosinophils% 4.3 % (0-5); Hematocrit 39.5 % (40-54); Hemoglobin 12.6 g/dL (13.0-16.5); Lymphocyte # 1.74 X10^3/ul (4.0); Lymphocyte % 25.1 % (19-41); Mean Corp Hgb Conc 31.9 g/dL (32-36); Mean Corpuscular Hgb 30.1 pg (27.0-32.0); Mean Corpuscular Volume 94.5 fL (80-94); Monocyte# 0.59 X10^3/uL; Monocyte% 8.5 % (0-10); NRBC Flagged by Analyzer 0 % (0-5); Neutrophil # 4.22 X10^3/uL (2.7-7.7); Neutrophil % 61.1 % (47-70); Platelet Count 163 K/mm3 (150-450); RBC Distribution Width CV 13.7 % (11.6-14.6); RBC Distribution Width SD 47.2 fl (35.1-43.9); Red Blood Count 4.18 M/mm3 (4.6-6.2); White Blood Count 6.9 K/mm3 (4.4-11.0)
[2020-08-15] MEDS: 0.9% Normal Saline 1,000 ML 75 ML IV (06:03)
[2020-08-15] MEDS: Levothyroxine 175 MCG Tablet PO (06:04)
[2020-08-15 06:23] LABS: Anion Gap 6 (5-15); BUN 17 mg/dL (7-18); BUN/Creat Ratio 19.1 RATIO (10-20); Calcium,Total 8.6 mg/dL (8.5-10.1); Chloride 106 mmol/L (98-107); Creatinine, Serum 0.89 mg/dL (0.70-1.30); EST Glomerular Filtration Rate 89 mL/min (>60); Est Glom Filt Rate - Afr Amer 108 mL/min (>60); Estimated Creatinine Clearance 89.67 ml/min; Glucose 151 mg/dL (74-106); Potassium 3.8 mmol/L (3.5-5.1); Sodium Level 138 mmol/L (136-145)
[2020-08-15] MEDS: Insulin Lispro 100 UNIT/ML INSULN.PEN SC ×2 (06:41→11:43)
[2020-08-15 06:51] LABS: Bedside Glucose 162 mg/dL (70-110)
[2020-08-15] MEDS: DULoxetine Hcl 60 MG Capsule PO (09:04)
--- NOTE | 2020-08-15 10:25 | PCM.DC ---
- Discharge Diagnoses Current Active Problems: Current Active and Chronic Problems (Last Reviewed 06/20/20 @ 11:00 by Romina Abreu) Bronchiectasis (Chronic) Chronic diastolic (congestive) heart failure (Chronic) Left ventricular diastolic dysfunction (Chronic) Longstanding persistent atrial fibrillation (Chronic) Right bundle branch block (RBBB) (Chronic) Essential (primary) hypertension (Chronic) Hyperlipidemia (Chronic) COPD (chronic obstructive pulmonary disease) (Chronic) You will use the following diet at home:: Calorie/Carbohydrate Controlled (specify 1200, 1400, etc), Cardiac Discharge Activity: Return to Normal Activity Call your doctor if you observe: Shortness of breath, Dizziness, Fainting spells, Chest pain Allergies/Adverse Reactions: Allergies No Known Allergies Allergy (Verified 08/14/20 13:06) Medications to take at Discharge Levothyroxine [Synthroid] 175 mcg PO DAILY 07/30/14 Pravastatin [Pravachol] 40 mg PO QHS 07/30/14 Cholecalciferol (VIT D3) [Vitamin D3] 1,000 unit PO DAILY #1 tab 09/18/18 Albuterol Inhaler [Ventolin Hfa] 1 - 2 puff INHALATION Q4H PRN PRN #1 inhaler 08/16/19 Rivaroxaban [Xarelto] 20 mg PO DINNER 08/16/19 furosemide 20 mg tablet 40 mg PO DAILY tab 03/02/20 lisinopril 5 mg tablet 5 mg PO DAILY #90 tab 03/02/20 metformin 500 mg tablet,extended release 24 hr 1,000 mg PO DAILY tab 03/02/20 PEP device See Rx Instructions .ROUTE .MEDSUPPLY #1 ea 06/20/20 Calcium Carbonate 600 mg PO QHS 08/14/20 Duloxetine Hcl [Cymbalta] 60 mg PO DAILY 08/14/20 Ferrous Sulfate 325 mg PO BID 08/14/20 Insulin Glargine [Lantus SoloStar Pen] 10 units SC QHS 08/14/20 Lipase/Protease/Amylase [Pedro Ayala 24,000 Units Capsule] 1 ea PO TID 08/14/20 Umeclidinium Brm/Vilanterol Tr [Anoro Ellipta 62.5-25 Mcg INH] 1 ea IH DAILY PRN PRN 08/14/20 Insulin Lispro [Humalog KwikPen] See Protocol SC ACHS insuln.pen 08/15/20 Primary Care Physician: Raffaele Olguin MD [Primary Care Provider] - Please follow up with your Primary Care Physician in: 1 Week Test Results: Test results from this visit will be discussed in further detail at your follow-up appointment, if applicable. Please Follow Up With: Jay Jay Irvin NP, TRANSPORTATION CONSULTANT-C When: As scheduled 08/16/20 Proposed Discharge Date: 08/15/20
--- NOTE | 2020-08-15 10:28 | DS.PCM_ITS ---
<Romina Orosco LEISURE STUDIES PROFESSOR - Last Filed: 08/15/20 10:34> Discharge Date and Diagnosis Date of Admission: 08/14/20 Date of Discharge: 08/15/20 - Primary Discharge Diagnosis Acute Problems: 1. Fall with traumatic left clavicular fracture-suspect fall related to h ypoglycemia and bradycardia. 2. Chronic atrial fibrillation with bradycardia 3. Hypotension 4. Type 2 diabetes mellitus with hypoglycemia 5. Indeterminate troponin- no EKG changes. Enzymes did not trend. 6. Chronic diastolic CHF 7. Chronic COPD/bronchiectasis 8. Hypertension 9. Hyperlipidemia 10. Obesity 11. Anxiety/depression 12. Hypothyroidism - Secondary Discharge Diagnosis Chronic Problems: Chronic Problems (Last Reviewed 06/20/20 @ 11:00 by Romina Abreu) Bronchiectasis (Chronic) Chronic diastolic (congestive) heart failure (Chronic) Left ventricular diastolic dysfunction (Chronic) Longstanding persistent atrial fibrillation (Chronic) Right bundle branch block (RBBB) (Chronic) Essential (primary) hypertension (Chronic) Hyperlipidemia (Chronic) COPD (chronic obstructive pulmonary disease) (Chronic) Hospital Course and Treatment Imaging Results: Diagnostic Data Brain CT 08/14/20 13:15 IMPRESSION: 1. No acute intracranial hemorrhage or mass effect. 2. 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 Electronically Signed: Emmanuel Benitez MD ([place]) at 14:10 EDT , Service support , Chest X-Ray 08/14/20 13:16 IMPRESSION: Stable examination demonstrating no acute cardiopulmonary process. Electronically Signed: Lauren Soriano MD at 14:19 EDT Tel , Service support , ADDENDUM: 08/14/20 1430 Shoulder X-Ray 08/14/20 13:16 IMPRESSION: Distal left clavicular fracture. Degenerative changes. Electronically Signed: Lauren Soriano MD at 14:25 EDT Tel , Service support , Operations: None Procedures: None Summary of Care Provided: The patient is a 70 year old M admitted 08/14/2020 due to fall. 1. Fall with traumatic left clavicular fracture-suspect fall related to hypoglycemia and bradycardia. Brain CT negative for acute process. Shoulder x- ray due to report of pain demonstrated distal left clavicular fracture. Left arm sling as needed for comfort. Follow-up with PCP in week. Ortho referral as needed. 2. Chronic atrial fibrillation with bradycardia-bradycardia resolved. Continue to hold metoprolol at discharge. Continue Xarelto. Patient has follow-up with cardiology 08/16/2020. 3. Hypotension-improved with holding BP regimen and IV fluids. Metoprolol discontinued as noted above. Continue low-dose lisinopril. 4. Type 2 diabetes mellitus- reports patient has had recurrent episodes of hypoglycemia. Hemoglobin A1c 6.8%. Continue Metformin. Lantus reduced to 10 units nightly. Humalog sliding scale only. Follow-up with PCP for further adjustment/monitoring. 5. Indeterminate troponin- no EKG changes. Enzymes did not trend. 6. Chronic diastolic CHF-echocardiogram February 2020 demonstrated an EF of 55%, stage III diastolic dysfunction. Continue Lasix. 7. Chronic COPD/bronchiectasis-as needed albuterol aerosol. 8. Hypertension-metoprolol discontinued. Continue low-dose lisinopril and Lasix regimen. 9. Hyperlipidemia- continue statin. 10. Obesity- encouraged diet and lifestyle modifications. 11. Anxiety/depression-continue duloxetine. 12. Hypothyroidism-continue Synthroid. General: Alert, Oriented x3, Cooperative HEENT: Atraumatic, PERRLA, EOMI, Normocephalic Neck: Supple, No JVD, Negative Carotid Bruits Lungs: Clear to auscultation, Normal air movement Cardiovascular: Regular rate, Atrial fibrillation Abdomen: Bowel Sounds Present, Soft, Non Tender, Non-Distended Extremities: No clubbing, No cyanosis, No edema, Capillary Refill Less than 3 Seconds Skin: No rashes, No breakdown, - - Scattered facial abrasions Musculoskeletal: Tenderness - Left shoulder, clavicle area Neurological: Cranial nerves II-XII grossly intact, Neuro grossly intact Psych/Mental Status: Normal Affect, Appropriate Patient seen and examined prior to discharge. Physical assessment as noted above. Patient is stable for discharge with follow up recommendations as noted above. This patient was seen by MAE Gallagher under the supervision of Dr. Saldivar. - Physical Exam Vitals/I&O's: Vital Signs Temp Pulse Resp BP Pulse Ox 98.6 F 86 18 109/64 96 08/15/20 08:57 08/15/20 08:57 08/15/20 08:57 08/15/20 08:57 08/15/20 08:57 Oxygen Delivery Method Room Air Weight: 296 lb Body Mass Index (BMI) 37.0 Finger Stick Blood Glucose 113 Orthostatic Vital Signs Start: 08/15/20 00:54 Freq: q24h Status: Active Protocol: Activity Type Activity Date Activity User E-Sign Co-Sign Detail Recorded Client Recorded Date Recorded By Document 08/15/20 05:48 [id number] 08/15/20 05:59 08/15/20 05:48 Orthostatic Vitals Standing -Blood Pressure (90/60-120/80) 95/57 L -Extremity Use Right Arm -Pulse Rate (60-100) 91 Sitting -Blood Pressure (90/60-120/80) 102/64 -Extremity Use Right Arm -Pulse Rate (60-100) 80 Lying -Blood Pressure (90/60-120/80) 105/58 L -Extremity Use Right Arm -Pulse Rate (60-100) 70 Intake and Output for Last 24 Hours 08/13/20 08/14/20 08/15/20 22:59 23:59 23:59 Intake Total 1103.75 / 1103.75 Output Total 1050 / 1050 Balance 53.75 / 53.75 Laboratory Results 08/14/20 12:58: POC Glucose 59 L 08/14/20 13:05: WBC 9.0, RBC 4.21 L, Hgb 12.9 L, Hct 40.8, MCV 96.9 H, MCH 30.6, MCHC 31.6 L, RDW Std Deviation 48.8 H, RDW Coeff of Marifer 13.5, Plt Count 131 L, MPV 12.7 H, Immature Gran % (Auto) 1.000 H, Neut % (Auto) 56.2, Lymph % (Auto) 27.8, [place] % (Auto) 10.1 H, Eos % (Auto) 4.5, Baso % (Auto) 0.4, Absolute Neuts (auto) 5.0, Absolute Lymphs (auto) 2.50, Nucleated RBC % 0 08/14/20 13:05: Sodium 138, Potassium 4.5, Chloride 104, Carbon Dioxide 30.0, Anion Gap 4 L, BUN 22 H, Creatinine 1.10, Estim Creat Clear Calc 72.55, Est GFR (MDRD) Af Amer 85, Est GFR (MDRD) Non-Af 70, BUN/Creatinine Ratio 20.0, Glucose 63 L, Calcium 9.0, Total Bilirubin 0.60, AST 25, ALT 21, Alkaline Phosphatase 77 , Troponin I 0.051 H, Total Protein 7.5, Albumin 3.2, Globulin 4.3 H, Albumin/Globulin Ratio 0.7 L, TSH 3.13 08/14/20 13:30: Lactic Acid 1.6 08/14/20 13:56: POC Glucose 113 H 08/14/20 14:37: Urine Color Yellow, Urine Clarity Sl. Cloudy, Urine pH 6.0, Ur Specific [place] 1.015, Urine Protein Negative, Urine Glucose (UA) Normal, Urine Ketones Negative, Urine Occult Blood Negative, Urine Nitrite Negative, Urine Bilirubin Negative, Urine Urobilinogen 1 H, Ur Leukocyte Esterase 25 H, Urine RBC 0 SEEN, Urine WBC 0-5 SEEN, Ur Squamous Epith Cells 0-5 SEEN, Urine Bacteria RARE, Hyaline Casts 0-5 SEEN, Urine Mucus 0 SEEN 08/14/20 16:18: Magnesium 2.1, Troponin I 0.051 H, TSH 2.28 08/14/20 16:18: Hemoglobin A1c 6.8 H 08/14/20 16:26: POC Glucose 94 08/14/20 19:38: Troponin I 0.052 H 08/14/20 21:29: POC Glucose 149 H 08/15/20 05:44: WBC 6.9, RBC 4.18 L, Hgb 12.6 L, Hct 39.5 L, MCV 94.5 H, MCH 30.1, MCHC 31.9 L, RDW Std Deviation 47.2 H, RDW Coeff of Marifer 13.7, Plt Count 163, Immature Gran % (Auto) 0.400, Neut % (Auto) 61.1, Lymph % (Auto) 25.1, [place] % (Auto) 8.5, Eos % (Auto) 4.3, Baso % (Auto) 0.6, Absolute Neuts (auto) 4.2, Absolute Lymphs (auto) 1.74, Nucleated RBC % 0 08/15/20 05:44: Sodium 138, Potassium 3.8, Chloride 106, Carbon Dioxide 26.0, Anion Gap 6, BUN 17, Creatinine 0.89, Estim Creat Clear Calc 89.67, Est GFR (MDRD) Af Amer 108, Est GFR (MDRD) Non-Af 89, BUN/Creatinine Ratio 19.1, Glucose 151 H, Calcium 8.6 08/15/20 06:36: POC Glucose 162 H Current Medications Acetaminophen (Acetaminophen 325 Mg Tablet) 650 mg PO Q6H PRN PRN PRN Reason: Pain Score 1-10/Temp > 100.7 F Albuterol Sulfate (Albuterol 2.5 Mg/3 Ml Vial.Neb.) 2.5 mg INHALATION Q2H PRN PRN PRN Reason: SHORTNESS OF BREATH Duloxetine HCl (Duloxetine Hcl 60 Mg Capsule) 60 mg PO DAILY [facility] Last Admin: 08/15/20 09:04 Dose: 60 mg Documented by: Ferrous Sulfate (Ferrous Sulfate 325 Mg Tablet) 325 mg PO BID@1200,1700 [facility] Last Admin: 08/14/20 16:56 Dose: 325 mg Documented by: Sodium Chloride () 1,000 mls @ 75 mls/hr IV .[id number] [facility] Last Admin: 08/15/20 06:03 Dose: 75 mls/hr Documented by: Sodium Chloride () 250 mls @ 15 mls/hr IV .[id number] PRN PRN Reason: Saline Flush Sodium Chloride () 250 mls @ 15 mls/hr IV .[id number] PRN PRN Reason: Additional IVPB Infusion Insulin Human Lispro (Insulin Lispro 100 Unit/Ml Insuln.Pen) 0 unit SC [facility]; Protocol Last Admin: 08/15/20 06:41 Dose: 1 u Documented by: Levothyroxine Sodium (Levothyroxine 175 Mcg Tablet) 175 mcg PO DAILY@0600 [facility] Last Admin: 08/15/20 06:04 Dose: 175 mcg Documented by: Ondansetron HCl (Ondansetron 4 Mg/2 Ml Vial) 4 mg IV Q8H PRN PRN PRN Reason: NAUSEA/VOMITING Oxycodone HCl (Oxycodone 5 Mg Tablet) 5 mg PO Q6H PRN PRN PRN Reason: Pain Score 6-10 Pravastatin Sodium (Pravastatin 40 Mg Tablet) 40 mg PO QHS [facility] Last Admin: 08/14/20 21:30 Dose: 40 mg Documented by: Rivaroxaban (Rivaroxaban 20 Mg Tablet) 20 mg PO DINNER [facility] Last Admin: 08/14/20 16:56 Dose: 20 mg Documented by: Sodium Chloride (0.9% Saline Lock 10 Ml Syringe) 10 - 40 ml IV UD PRN PRN Reason: SALINE FLUSH Last Admin: 08/14/20 16:56 Dose: 10 ml Documented by: Discharge Diet: Low fat/ Low Cholesterol, Carb Control Diet Discharge Activity: Return to Normal Activity Call your doctor if you observe: Shortness of breath, Dizziness, Fainting spells, Chest pain Home Medications: Medications to take at Discharge Levothyroxine [Synthroid] 175 mcg PO DAILY 07/30/14 Pravastatin [Pravachol] 40 mg PO QHS 07/30/14 Cholecalciferol (VIT D3) [Vitamin D3] 1,000 unit PO DAILY #1 tab 09/18/18 Albuterol Inhaler [Ventolin Hfa] 1 - 2 puff INHALATION Q4H PRN PRN #1 inhaler 08/16/19 Rivaroxaban [Xarelto] 20 mg PO DINNER 08/16/19 furosemide 20 mg tablet 40 mg PO DAILY tab 03/02/20 lisinopril 5 mg tablet 5 mg PO DAILY #90 tab 03/02/20 metformin 500 mg tablet,extended release 24 hr 1,000 mg PO DAILY tab 03/02/20 PEP device See Rx Instructions .ROUTE .MEDSUPPLY #1 ea 06/20/20 Calcium Carbonate 600 mg PO QHS 08/14/20 Duloxetine Hcl [Cymbalta] 60 mg PO DAILY 08/14/20 Ferrous Sulfate 325 mg PO BID 08/14/20 Insulin Glargine [Lantus SoloStar Pen] 10 units SC QHS 08/14/20 Lipase/Protease/Amylase [Pedro Ayala 24,000 Units Capsule] 1 ea PO TID 08/14/20 Umeclidinium Brm/Vilanterol Tr [Anoro Ellipta 62.5-25 Mcg INH] 1 ea IH DAILY PRN PRN 08/14/20 Insulin Lispro [Humalog KwikPen] See Protocol SC ACHS insuln.pen 08/15/20 Primary Care Physician: Raffaele Olguin MD [Primary Care Provider] - Please follow up with your Primary Care Physician in: 1 Week Please Follow Up With: Jay Jay Irvin LEISURE STUDIES PROFESSOR, LEISURE STUDIES PROFESSOR-C When: As scheduled 08/16/20 Disposition: Home Minutes spent on discharge:: 35 Patient Condition:: Stable Medical Necessity - Tobacco Use Smoking Status: Former smoker Meaningful Use Info Meaningful Use Diagnoses (Choose all that apply): None applicable <Adriana Saldivar E - Last Filed: 08/15/20 12:13> Discharge Date and Diagnosis - Secondary Discharge Diagnosis Chronic Problems: Chronic Problems (Last Reviewed 06/20/20 @ 11:00 by Romina Abreu) Bronchiectasis (Chronic) Chronic diastolic (congestive) heart failure (Chronic) Left ventricular diastolic dysfunction (Chronic) Longstanding persistent atrial fibrillation (Chronic) Right bundle branch block (RBBB) (Chronic) Essential (primary) hypertension (Chronic) Hyperlipidemia (Chronic) COPD (chronic obstructive pulmonary disease) (Chronic) Hospital Course and Treatment Summary of Care Provided: Hospitalist note: Discharge summary above reviewed and I concur with above discharge treatment plan. Patient presented to the emergency room because of fall and left shoulder pain. He was found to have acute traumatic left clavicular fracture which treated conservatively with pain control and arm sling, there was no indication for surgical intervention. He was found to have bradycardia which is attributed to beta-blockers. Metoprolol was discontinued and his heart rate improved. Patient was found to be hypotensive which is attributed to metoprolol as well and lisinopril. He was treated with IV fluids and his blood pressure and heart rate stabilized. Patient had recurrent episodes of hypoglycemia. He has been on high-dose of Lantus as well as Humalog sliding scale. His hemoglobin A1c was 6.8%. Dosage of Lantus, Humalog and Metformin adjusted. Blood sugar stabilized. His troponin was borderline elevated. Patient denied any chest pain throughout admission. His EKG revealed no acute segment changes. After adjusting his Lantus and sliding scale as well as discontinuing metoprolol, heart rate stabilized. Blood pressure and blood sugar improved. Patient discharged home in a stable medical condition, metoprolol discontinued, doses of Lantus adjusted, started back on Metformin, discharged on sliding scale only, instructed to check blood sugar at least 4 times a day and keep a blood sugar log, recommended follow-up with PCP in 1 week. - Physical Exam General: Alert, Oriented x3, Cooperative, No apparent distress. HEENT: Atraumatic, PERRLA, EOMI. Neck: Supple, No JVD, Negative Carotid Bruits, Trachea Midline, Thyroid Normal. Lungs: Clear to auscultation, Normal air movement, No rhonchi, No wheeze, No rales. Cardiovascular: irregular rate and rhythm, normal S1, Normal S2, PMI Normal. Abdomen: Bowel Sounds Present, Soft, Non Tender, Non-Distended, No Hepato- splenomegaly. Extremities: No clubbing, No cyanosis, No edema Skin: No rashes, No breakdown Neurological: Cranial nerves are intact, neuro grossly intact Vital Signs are stable. This note was generated with [employer] dictation software. It may contain incorrect words, spelling, and punctuation that were not noted in checking the note before signing. - Physical Exam Vitals/I&O's: Vital Signs Temp Pulse Resp BP Pulse Ox 98.5 F 91 16 117/70 99 08/15/20 11:49 08/15/20 11:49 08/15/20 11:49 08/15/20 11:49 08/15/20 11:49 Oxygen Delivery Method Room Air Weight: 296 lb Body Mass Index (BMI) 37.0 Finger Stick Blood Glucose 113 Orthostatic Vital Signs Start: 08/15/20 00:54 Freq: q24h Status: Active Protocol: Activity Type Activity Date Activity User E-Sign Co-Sign Detail Recorded Client Recorded Date Recorded By Document 08/15/20 05:48 [id number] 08/15/20 05:59 08/15/20 05:48 Orthostatic Vitals Standing -Blood Pressure (90/60-120/80) 95/57 L -Extremity Use Right Arm -Pulse Rate (60-100) 91 Sitting -Blood Pressure (90/60-120/80) 102/64 -Extremity Use Right Arm -Pulse Rate (60-100) 80 Lying -Blood Pressure (90/60-120/80) 105/58 L -Extremity Use Right Arm -Pulse Rate (60-100) 70 Intake and Output for Last 24 Hours 08/13/20 08/14/20 08/15/20 22:59 23:59 23:59 Intake Total 1530.00 / 1530.00 Output Total 1050 / 1050 Balance 480.00 / 480.00 Laboratory Results 08/14/20 12:58: POC Glucose 59 L 08/14/20 13:05: WBC 9.0, RBC 4.21 L, Hgb 12.9 L, Hct 40.8, MCV 96.9 H, MCH 30.6, MCHC 31.6 L, RDW Std Deviation 48.8 H, RDW Coeff of Marifer 13.5, Plt Count 131 L, MPV 12.7 H, Immature Gran % (Auto) 1.000 H, Neut % (Auto) 56.2, Lymph % (Auto) 27.8, [place] % (Auto) 10.1 H, Eos % (Auto) 4.5, Baso % (Auto) 0.4, Absolute Neuts (auto) 5.0, Absolute Lymphs (auto) 2.50, Nucleated RBC % 0 08/14/20 13:05: Sodium 138, Potassium 4.5, Chloride 104, Carbon Dioxide 30.0, Anion Gap 4 L, BUN 22 H, Creatinine 1.10, Estim Creat Clear Calc 72.55, Est GFR (MDRD) Af Amer 85, Est GFR (MDRD) Non-Af 70, BUN/Creatinine Ratio 20.0, Glucose 63 L, Calcium 9.0, Total Bilirubin 0.60, AST 25, ALT 21, Alkaline Phosphatase 77, Troponin I 0.051 H, Total Protein 7.5, Albumin 3.2, Globulin 4.3 H, Albumin/Globulin Ratio 0.7 L, TSH 3.13 08/14/20 13:30: Lactic Acid 1.6 08/14/20 13:56: POC Glucose 113 H 08/14/20 14:37: Urine Color Yellow, Urine Clarity Sl. Cloudy, Urine pH 6.0, Ur Specific [place] 1.015, Urine Protein Negative, Urine Glucose (UA) Normal, Urine Ketones Negative, Urine Occult Blood Negative, Urine Nitrite Negative, Urine Bilirubin Negative, Urine Urobilinogen 1 H, Ur Leukocyte Esterase 25 H, Urine RBC 0 SEEN, Urine WBC 0-5 SEEN, Ur Squamous Epith Cells 0-5 SEEN, Urine Bacteria RARE, Hyaline Casts 0-5 SEEN, Urine Mucus 0 SEEN 08/14/20 16:18: Magnesium 2.1, Troponin I 0.051 H, TSH 2.28 08/14/20 16:18: Hemoglobin A1c 6.8 H 08/14/20 16:26: POC Glucose 94 08/14/20 19:38: Troponin I 0.052 H 08/14/20 21:29: POC Glucose 149 H 08/15/20 05:44: WBC 6.9, RBC 4.18 L, Hgb 12.6 L, Hct 39.5 L, MCV 94.5 H, MCH 30.1, MCHC 31.9 L, RDW Std Deviation 47.2 H, RDW Coeff of Marifer 13.7, Plt Count 163, Immature Gran % (Auto) 0.400, Neut % (Auto) 61.1, Lymph % (Auto) 25.1, [place] % (Auto) 8.5, Eos % (Auto) 4.3, Baso % (Auto) 0.6, Absolute Neuts (auto) 4.2, Absolute Lymphs (auto) 1.74, Nucleated RBC % 0 08/15/20 05:44: Sodium 138, Potassium 3.8, Chloride 106, Carbon Dioxide 26.0, Anion Gap 6, BUN 17, Creatinine 0.89, Estim Creat Clear Calc 89.67, Est GFR (MDRD) Af Amer 108, Est GFR (MDRD) Non-Af 89, BUN/Creatinine Ratio 19.1, Glucose 151 H, Calcium 8.6 08/15/20 06:36: POC Glucose 162 H 08/15/20 11:24: POC Glucose 276 H Current Medications Acetaminophen (Acetaminophen 325 Mg Tablet) 650 mg PO Q6H PRN PRN PRN Reason: Pain Score 1-10/Temp > 100.7 F Albuterol Sulfate (Albuterol 2.5 Mg/3 Ml Vial.Neb.) 2.5 mg INHALATION Q2H PRN PRN PRN Reason: SHORTNESS OF BREATH Duloxetine HCl (Duloxetine Hcl 60 Mg Capsule) 60 mg PO DAILY [facility] Last Admin: 08/15/20 09:04 Dose: 60 mg Documented by: Ferrous Sulfate (Ferrous Sulfate 325 Mg Tablet) 325 mg PO BID@1200,1700 [facility] Last Admin: 08/15/20 11:44 Dose: 325 mg Documented by: Sodium Chloride () 1,000 mls @ 75 mls/hr IV .[id number] [facility] Last Infusion: 08/15/20 11:44 Dose: 0 mls/hr Documented by: Sodium Chloride () 250 mls @ 15 mls/hr IV .[id number] PRN PRN Reason: Saline Flush Sodium Chloride () 250 mls @ 15 mls/hr IV .[id number] PRN PRN Reason: Additional IVPB Infusion Insulin Human Lispro (Insulin Lispro 100 Unit/Ml Insuln.Pen) 0 unit SC [facility]; Protocol Last Admin: 08/15/20 11:43 Dose: 2 u Documented by: Levothyroxine Sodium (Levothyroxine 175 Mcg Tablet) 175 mcg PO DAILY@0600 [facility] Last Admin: 08/15/20 06:04 Dose: 175 mcg Documented by: Ondansetron HCl (Ondansetron 4 Mg/2 Ml Vial) 4 mg IV Q8H PRN PRN PRN Reason: NAUSEA/VOMITING Oxycodone HCl (Oxycodone 5 Mg Tablet) 5 mg PO Q6H PRN PRN PRN Reason: Pain Score 6-10 Pravastatin Sodium (Pravastatin 40 Mg Tablet) 40 mg PO QHS [facility] Last Admin: 08/14/20 21:30 Dose: 40 mg Documented by: Rivaroxaban (Rivaroxaban 20 Mg Tablet) 20 mg PO DINNER [facility] Last Admin: 08/14/20 16:56 Dose: 20 mg Documented by: Sodium Chloride (0.9% Saline Lock 10 Ml Syringe) 10 - 40 ml IV UD PRN PRN Reason: SALINE FLUSH Last Admin: 08/14/20 16:56 Dose: 10 ml Documented by: Disposition: Home Minutes spent on discharge:: 28 Patient Condition:: Stable Meaningful Use Info Meaningful Use Diagnoses (Choose all that apply): None applicable OBSV E&M: 44274 Observation care discharge
--- NOTE | 2020-08-15 10:39 | PHA.DC.MR ---
Pharmacy Service has performed discharge medication reconciliation for this patient. The patient's discharge medication list was reviewed for discrepancies and discrepancies were resolved. Home Medications Levothyroxine [Synthroid] 175 mcg PO DAILY 07/30/14 Pravastatin [Pravachol] 40 mg PO QHS 07/30/14 Cholecalciferol (VIT D3) [Vitamin D3] 1,000 unit PO DAILY #1 tab 09/18/18 Albuterol Inhaler [Ventolin Hfa] 1 - 2 puff INHALATION Q4H PRN PRN #1 inhaler 08/16/19 Rivaroxaban [Xarelto] 20 mg PO DINNER 08/16/19 furosemide 20 mg tablet 40 mg PO DAILY tab 03/02/20 lisinopril 5 mg tablet 5 mg PO DAILY #90 tab 03/02/20 metformin 500 mg tablet,extended release 24 hr 1,000 mg PO DAILY tab 03/02/20 PEP device See Rx Instructions .ROUTE .MEDSUPPLY #1 ea 06/20/20 Calcium Carbonate 600 mg PO QHS 08/14/20 Duloxetine Hcl [Cymbalta] 60 mg PO DAILY 08/14/20 Ferrous Sulfate 325 mg PO BID 08/14/20 Insulin Glargine [Lantus SoloStar Pen] 10 units SC QHS 08/14/20 Lipase/Protease/Amylase [Pedro Dr 24,000 Units Capsule] 1 ea PO TID 08/14/20 Umeclidinium Brm/Vilanterol Tr [Anoro Ellipta 62.5-25 Mcg INH] 1 ea IH DAILY PRN PRN 08/14/20 Insulin Lispro [Humalog KwikPen] See Protocol [facility] ACHS insuln.pen 08/15/20
[2020-08-15 11:30] LABS: Bedside Glucose 276 mg/dL (70-110)
[2020-08-15] MEDS: Ferrous Sulfate 325 MG Tablet PO (11:44)
--- NOTE | 2020-08-15 12:40 | NURSING ---
sling applied to left arm , discharged with instructions in care of
== END 2020-08-15 10:26 | disposition home or self-care (01) ==
LOC: ED 13:30 → PCU 15:46
PROVIDERS: Admitting Provider Nurse Practitioner Family; Emergency Provider Emergency Medicine; PCP Family Medicine; Visit Provider Hospitalist
DX: S42.032A Displaced fracture of lateral end of left clavicle, initial encounter for closed fracture (principal); W19.XXXA Unspecified fall, initial encounter; Y93.89 Activity, other specified; Y92.9 Unspecified place or not applicable; Y99.9 Unspecified external cause status; E11.649 Type 2 diabetes mellitus with hypoglycemia without coma; E03.9 Hypothyroidism, unspecified; I11.0 Hypertensive heart disease with heart failure; I50.32 Chronic diastolic (congestive) heart failure; J44.9 Chronic obstructive pulmonary disease, unspecified; S00.81XA Abrasion of other part of head, initial encounter; I45.10 Unspecified right bundle-branch block; D68.9 Coagulation defect, unspecified; E11.65 Type 2 diabetes mellitus with hyperglycemia; E78.5 Hyperlipidemia, unspecified; I48.11 Longstanding persistent atrial fibrillation; F32.9 Major depressive disorder, single episode, unspecified; F41.9 Anxiety disorder, unspecified; E66.9 Obesity, unspecified; Z68.37 Body mass index [BMI] 37.0-37.9, adult; I95.9 Hypotension, unspecified; Z87.891 Personal history of nicotine dependence; Z79.899 Other long term (current) drug therapy; Z79.01 Long term (current) use of anticoagulants; Z79.4 Long term (current) use of insulin
CPT/HCPCS: 36415; 70450; 71045; 73030; 80048; 80053; 81001; 82962; 83036; 83605; 83735; 84443; 84484; 85025; 93005; 96360; 96361; 99218; 99285; J7030; J7040; A4216; G0378

== ENCOUNTER → 2021-01-05 08:42 | Outpatient (CLI) | payer MEDICARE, OTHER, SELFPAY ==
[2020-12-12 07:46] VITALS: BMI 36.6
[2021-01-05 10:05] LABS: Absolute Lymphocyte Count 1.84 X10^3/uL (0.83-4.51); Basophil# 0.04 X10^3/uL; Basophil% 0.6 % (0-1); Eosinophil# 0.21 X10^3/uL; Eosinophils% 3.1 % (0-5); Hematocrit 40.4 % (40-54); Hemoglobin 12.9 g/dL (13.0-16.5); Lymphocyte # 1.84 X10^3/ul (0.83-4.51); Lymphocyte % 26.9 % (19-41); Mean Corp Hgb Conc 31.9 g/dL (32-36); Mean Corpuscular Hgb 29.8 pg (27.0-32.0); Mean Corpuscular Volume 93.3 fL (80-94); Mean Platelet Vol. 12.9 fl (6.2-12.0); Monocyte# 0.73 X10^3/uL; Monocyte% 10.7 % (0-10); NRBC Flagged by Analyzer 0 % (0-5); Neutrophil # 3.96 X10^3/uL (2.7-7.7); Neutrophil % 57.7 % (47-70); Platelet Count 118 K/mm3 (150-450); RBC Distribution Width CV 14.7 % (11.6-14.6); Red Blood Count 4.33 M/mm3 (4.6-6.2); White Blood Count 6.9 K/mm3 (4.4-11.0)
[2021-01-05 10:26] LABS: ALB/GLOB Ratio 0.8 RATIO (0.9-2.4); AST(SGOT) 15 U/L (15-37); Alanine Aminotransfer ALT/SGPT 20 U/L (16-61); Albumin, Serum 3.2 g/dL (3.2-5.0); Alkaline Phosphatase 77 U/L (45-117); Anion Gap 5 (5-15); BUN 18 mg/dL (7-18); Chloride 104 mmol/L (98-107); EST Glomerular Filtration Rate 88 mL/min (>60); Est Glom Filt Rate - Afr Amer 107 mL/min (>60); Globulin 4.2 g/dL (2.2-4.2); Glucose 168 mg/dL (74-106); Protein, Total 7.4 g/dL (6.4-8.2); Sodium Level 137 mmol/L (136-145)
== END ==
PROVIDERS: PCP Family Medicine; Referring Provider Family Medicine; Visit Provider Family Medicine
DX: L28.0 Lichen simplex chronicus (principal); E11.49 Type 2 diabetes mellitus with other diabetic neurological complication
CPT/HCPCS: 36415; 80053; 85025

== ENCOUNTER 2021-07-03 09:00 | Outpatient (CLI) | payer MEDICARE, OTHER, SELFPAY ==
[2021-07-03 09:48] LABS: Absolute Lymphocyte Count 1.81 X10^3/uL (0.83-4.51); Absolute Neutrophil Count 2.9 X10^3/uL (2.0-7.7); Basophil# 0.02 X10^3/uL; Basophil% 0.4 % (0-1); Eosinophil# 0.13 X10^3/uL; Eosinophils% 2.4 % (0-5); Hematocrit 39.1 % (40-54); Hemoglobin 12.2 g/dL (13.0-16.5); Lymphocyte # 1.81 X10^3/ul (0.83-4.51); Lymphocyte % 33.2 % (19-41); Mean Corp Hgb Conc 31.2 g/dL (32-36); Mean Corpuscular Hgb 29.5 pg (27.0-32.0); Mean Corpuscular Volume 94.4 fL (80-94); Mean Platelet Vol. 13.6 fl (6.2-12.0); Monocyte# 0.59 X10^3/uL; Monocyte% 10.8 % (0-10); NRBC Flagged by Analyzer 0 % (0-5); Neutrophil # 2.87 X10^3/uL (2.7-7.7); Neutrophil % 52.6 % (47-70); Platelet Count 214 K/mm3 (150-450); RBC Distribution Width CV 14.4 % (11.6-14.6); RBC Distribution Width SD 49.1 fl (35.1-43.9); Red Blood Count 4.14 M/mm3 (4.6-6.2); White Blood Count 5.5 K/mm3 (4.4-11.0)
[2021-07-03 10:18] LABS: Hemoglobin A1c 5.8 % (3.8-5.6)
[2021-07-03 10:19] LABS: ALB/GLOB Ratio 0.7 RATIO (0.9-2.4); AST(SGOT) 19 U/L (15-37); Alanine Aminotransfer ALT/SGPT 19 U/L (16-61); Albumin, Serum 2.8 g/dL (3.2-5.0); Alkaline Phosphatase 76 U/L (45-117); Anion Gap 4 (5-15); BUN 17 mg/dL (7-18); BUN/Creat Ratio 19.3 RATIO (10-20); Calcium,Total 8.4 mg/dL (8.5-10.1); Chloride 107 mmol/L (98-107); Creatinine, Serum 0.88 mg/dL (0.70-1.30); EST Glomerular Filtration Rate 90 mL/min (>60); Est Glom Filt Rate - Afr Amer 109 mL/min (>60); Globulin 4.1 g/dL (2.2-4.2); Glucose 192 mg/dL (74-106); Potassium 3.6 mmol/L (3.5-5.1); Protein, Total 6.9 g/dL (6.4-8.2); Sodium Level 139 mmol/L (136-145); Thyroid Stim Hormone (TSH) 0.02 uIU/mL (0.358-3.74)
== END 2021-07-03 23:59 | disposition short-term general hospital (02) ==
LOC: MFPLAB 09:01
PROVIDERS: PCP Family Medicine; Visit Provider Family Medicine
DX: E11.49 Type 2 diabetes mellitus with other diabetic neurological complication (principal)
CPT/HCPCS: 36415; 80053; 83036; 84443; 85025

== ENCOUNTER 2021-07-04 09:07 | Outpatient (CLI) | payer MEDICARE, OTHER, SELFPAY ==
[2021-07-04 10:25] LABS: Microalbumin,Random Urine 20.5 mg/L (NO RANGE EST.)
== END 2021-07-04 23:59 | disposition short-term general hospital (02) ==
LOC: MFPLAB 09:11
PROVIDERS: PCP Family Medicine; Referring Provider Family Medicine; Visit Provider Family Medicine
DX: E11.49 Type 2 diabetes mellitus with other diabetic neurological complication (principal)
CPT/HCPCS: 82043; 82570

== ENCOUNTER 2021-08-01 10:20 | Outpatient (CLI) | payer MEDICARE, OTHER, SELFPAY | END 2021-08-01 23:59 | disposition home or self-care (01) | LOC: PSN 10:22 | PROVIDERS: PCP Family Medicine; Referring Provider Internal Medicine Cardiovascular Disease; Visit Provider Internal Medicine Cardiovascular Disease | DX: I48.11 Longstanding persistent atrial fibrillation (principal) | CPT/HCPCS: 93225; 93226 ==

== ENCOUNTER → 2021-10-03 | Outpatient (CLI) | payer MEDICARE, OTHER, SELFPAY ==
[2021-10-03 12:29] LABS: Absolute Lymphocyte Count 1.66 X10^3/uL (0.83-4.51); Absolute Neutrophil Count 3.3 X10^3/uL (2.0-7.7); Basophil# 0.02 X10^3/uL; Basophil% 0.4 % (0-1); Eosinophil# 0.12 X10^3/uL; Eosinophils% 2.1 % (0-5); Hematocrit 39.2 % (40-54); Hemoglobin 12.7 g/dL (13.0-16.5); Lymphocyte # 1.66 X10^3/ul (0.83-4.51); Lymphocyte % 29.5 % (19-41); Mean Corp Hgb Conc 32.4 g/dL (32-36); Mean Corpuscular Hgb 31.4 pg (27.0-32.0); Mean Corpuscular Volume 96.8 fL (80-94); Mean Platelet Vol. 14.2 fl (6.2-12.0); Monocyte# 0.51 X10^3/uL; Monocyte% 9.1 % (0-10); NRBC Flagged by Analyzer 0 % (0-5); Neutrophil # 3.28 X10^3/uL (2.7-7.7); Neutrophil % 58.4 % (47-70); POSITIVE COUNT YES; RBC Distribution Width CV 14.4 % (11.6-14.6); RBC Distribution Width SD 51.3 fl (35.1-43.9); Red Blood Count 4.05 M/mm3 (4.6-6.2); White Blood Count 5.6 K/mm3 (4.4-11.0)
[2021-10-03 12:42] LABS: ALB/GLOB Ratio 0.7 RATIO (0.9-2.4); AST(SGOT) 15 U/L (15-37); Alanine Aminotransfer ALT/SGPT 23 U/L (16-61); Albumin, Serum 2.9 g/dL (3.2-5.0); Alkaline Phosphatase 66 U/L (45-117); Anion Gap 6 (5-15); BUN 17 mg/dL (7-18); BUN/Creat Ratio 19.3 RATIO (10-20); CRP 6.39 mg/L (0.0-3.0); Calcium,Total 8.3 mg/dL (8.5-10.1); Chloride 106 mmol/L (98-107); Creatinine, Serum 0.88 mg/dL (0.70-1.30); EST Glomerular Filtration Rate 90 mL/min (>60); Est Glom Filt Rate - Afr Amer 109 mL/min (>60); Globulin 4.1 g/dL (2.2-4.2); Glucose 125 mg/dL (74-106); Potassium 3.8 mmol/L (3.5-5.1); Sodium Level 139 mmol/L (136-145)
[2021-10-03 12:52] LABS: Hemoglobin A1c 5.3 % (3.8-5.6)
[2021-10-03 13:01] LABS: Differential Indicated SCAN CRITERIA MET
[2021-10-03 13:02] LABS: Platelet Estimate ADEQUATE (ADEQ)
== END | disposition home or self-care (01) ==
LOC: MFPLAB 09:48
PROVIDERS: PCP Family Medicine; Referring Provider Family Medicine; Visit Provider Family Medicine
DX: S81.802A Unspecified open wound, left lower leg, initial encounter (principal); E11.49 Type 2 diabetes mellitus with other diabetic neurological complication
CPT/HCPCS: 36415; 80053; 83036; 85025; 86140

== ENCOUNTER 2021-10-26 10:15 | Outpatient (RCR) | payer MEDICARE, OTHER, SELFPAY ==
[2021-10-05 09:59] VITALS: BP 102/55; PULSE 78; RESP 18; TEMP 36.2; BMI 33.2
--- NOTE | 2021-10-05 10:43 | PCM.WC.HP ---
History of Present Illness Date of Service: 10/05/21 Chief Complaint: Left Leg Ulcer History of Wound: Mr. Turcios is a 71-year-old who was referred to the wound center by his primary care physician due to a left lower extremity ulcer. Said to have been noted by his few days ago. Patient is legally blind. They deny any known precipitating factor. No known injury. Since noting ulcer, he was seen by his primary care physician who did some labs and also started him on doxycycline which he is currently taking. His states that she has been cleaning it and doing some dressing changes at home as well. He did not report chills, fever or otherwise feeling of unwell. Most recent A1c was at 5.3. [facility] Medical History (Updated 10/05/21 @ 10:[address] Kyleigh Andrade MD) Anxiety and depression Back problem Chronic diastolic (congestive) heart failure COPD (chronic obstructive pulmonary disease) DM type 2 (diabetes mellitus, type 2) Essential (primary) hypertension Head trauma Hx of transfusion of whole blood Hyperlipidemia Hypothyroidism Left ventricular diastolic dysfunction Longstanding persistent atrial fibrillation Obesity (BMI 30-39.9) Poorly controlled type 2 diabetes mellitus Right bundle branch block (RBBB) Sepsis Ulcer of left lower extremity with fat layer exposed Venous insufficiency of both lower extremities Home Medications pravastatin 40 mg PO QHS 07/30/14 [History Last Taken 02/12/20 16:30] rivaroxaban 20 mg PO DINNER 08/16/19 [History Last Taken 02/12/20 16:30] metformin 500 mg tablet,extended release 24 hr 1,000 mg PO DAILY tab 03/02/20 [History Last Taken Unknown] PEP device #1 ea 06/20/20 [Rx Last Taken Unknown] ferrous sulfate 325 mg PO BID 08/14/20 [History Last Taken Unknown] insulin lispro See Protocol SC ACHS insuln.pen 08/15/20 [Rx Last Taken Unknown] furosemide 40 mg tablet 40 mg PO DAILY 05/16/21 [History Last Taken Unknown] divalproex 250 mg tablet,delayed release 250 mg PO BID 07/25/21 [History Last Taken Unknown] guaifenesin 1,200 mg tablet, extended release 12 hr 1,200 mg PO Q12H #60 tab 07/25/21 [Rx Last Taken Unknown] insulin glargine 100 unit/mL (3 mL) subcutaneous pen 16 unit SC QHS ml 07/25/21 [History Last Taken Unknown] levothyroxine 150 mcg capsule 150 mcg PO DAILY 07/25/21 [History Last Taken Unknown] venlafaxine 225 mg tablet,extended release 24 hr 225 mg PO QAM 07/25/21 [History Last Taken Unknown] Allergy/AdvReac Type Severity Reaction Status Date / Time No Known Allergies Allergy Verified 07/25/21 09:27 Family History Mother Cancer Surgical History H/O hernia repair Social History Smoking Status: Former smoker quit date: 06/03/09 second hand exposure: No alcohol intake: never substance use type: does not use ROS Constitutional Constitutional: Denies anorexia, change in weight, chills, daytime sleepiness, difficulty sleeping or excessive sweating Eyes Eyes: Denies burning, eye pain, itchy eyes or periorbital itching ENT HEENT: Denies ear pain, epistaxis, facial pain, foreign body in nose, mouth lesions or mouth pain Cardiovascular Cardiovascular: Denies abdominal pain, chest pain at rest, claudication, cyanosis, fatigue or flutter in chest Respiratory/Chest Respiratory/Chest: Denies cough, difficulty clearing secretions, dry cough, dusky skin, excessive phlegm production, hemoptysis or hoarseness Gastrointestinal Gastrointestinal: Denies abdominal pain, anorexia, bloating, coffee ground emesis, dyspepsia or dysphagia Genitourinary Genitourinary: Denies abdominal discomfort, genital lesions, genital pain, hematuria or itching Musculoskeletal Musculoskeletal: Denies joint pain, joint stiffness, joint swelling, loss of height, muscle cramps or muscle spasms Integumentary Integumentary: Denies alopecia, dry skin, hirsutism, jaundice or lesions Neurologic Neurologic: Denies abnormal hearing, abnormal movements, abnormal speech, behavior changes or burning sensations Psychiatric Psychiatric: Denies anxiety, auditory hallucinations, behavioral changes, change in appetite, depression or difficulty concentrating Endocrine Endocrinology: Denies change in body appearance, fatigue, flushing, heat intolerance or increase in ring/shoe/hat size Allergic/Immunologic Allergic/Immunologic: Denies itchy eyes, lip swelling, seasonal rhinorrhea, rhinitis, throat swelling or tongue swelling Vital Signs Vital Signs Vital Signs: 10/05/21 09:59 Temperature 97.1 F L Temperature Source Temporal Pulse Rate 78 Respiratory Rate 18 Blood Pressure 102/55 L Blood Pressure Mean 70 Blood Pressure Source Monitor Blood Pressure Position Sitting Blood Pressure Location Right Arm Oxygen Delivery Method Room Air Weight Weight: 266 lb Body Mass Index (BMI) 33.2 Physical Exam Const alert, oriented x3 and no apparent distress General Appearance: cooperative, comfortable and well kempt HEENT normocephalic and head/scalp atraumatic Neck full ROM General: normal visual inspection Resp normal respiratory effort Effort and Inspection: able to speak in complete sentences Cardio regular rate, regular rhythm, S1 normal heart sound and S2 normal heart sound GI soft to palpation and non-tender Extremity General Extremity: edema Skin Wounds: wounds noted Neuro oriented x3, CN's II-XII intact bilaterally, moves all extremities and no focal motor deficits Psych mental status grossly normal Appearance: grossly normal Attitude: calm Activity / Motor Behavior: appropriate eye contact Debridement Note Debridement Note Wound debrided: Left Lower Extremity Type of Debridement: Excisional debridement Anesthesia Used: 4% Lidocaine Solution Depth: Down to and including healthy tissue and in the subcutaneous layer Percentage of wound debrided: 100 Instrument Used: 5mm curette Tissue Removed: Slough and devitalized tissue Severity: Fat Layer Exposed Amount of bleeding with debridement: Mild Bleeding Controlled with: Pressure Patient tolerated procedure: Patient tolerated procedure well Post-Debridement Measurements and Additional Note: Post-Debridement Measurements/Treatment - Nurse 1 - General Ulcer Assessment Start: 10/05/21 09:27 Freq: Status: Active Protocol: OLIVIA Activity Type Activity Date Activity User E-Sign Co-Sign Detail Recorded Client Recorded Date Recorded By Document 10/05/21 09:59 MW [id number] 10/05/21 10:08 MW 10/05/21 09:59 - Today's Visit Information Type of service Follow-up Visit (Physician/TALENT SOURCING SPECIALIST ) Arrival Mode Wheelchair Transfer Assistance Manual Accompanied by Patient Identification Verified (Name & Yes ) Patient Requires Transmission-Based No Precautions Safety Precautions Fall Prevention Finger Stick Blood Sugar(mg/dl) (if 112 indicated): Blood Sugar Stated by Patient Height and Weight Height 6 ft 3 in Weight 266 lb Weight in Pounds 266.0 lbs Body Mass Index (BMI) 33.2 BMI Classification Obese BSA - Genna 2.48 Vital Signs Temperature (97.8 F-99.1 F) 97.1 F L Temperature Source Temporal Pulse Rate (60-100) 78 Pulse Location Monitor Respiratory Rate (12-18) 18 Respiratory rate source Observation Oxygen Delivery Method Room Air Blood Pressure (90/60-120/80) 102/55 L Blood Pressure Mean 70 Source Monitor Position Sitting Blood Pressure Location Right Arm History Since Last Visit- (Skip if this is Patient's initial visit) Left Footwear Regular Shoe Right Footwear Regular Shoe Pain Scale: 0-10 Numeric Is Patient Pain Free? Yes Communication Assessment Preferred language [place] Able to Read No Able to Write No Communication Tools None Caregiver Communication Skills Unable To Read, Impairment Unable To Write Right Hearing Abillity Normal Left Hearing Abillity Normal Visual Assistive Devices Legally Blind Teaching Assessment Preferences Verbal,Written Barriers to Learning None Readiness To Learn Excellent Willingness to Engage in Self Management High Activies Readiness to Engage in Self Management High Activities Anxiety Level Calm Cooperation Cooperative Perception Coherent Interest in Health Problem Asks Questions Education Importance Acknowledges Need Smoking Status Former smoker Is Patient Diabetic No Functional Assessment Recent Decline in Ability to Perform Denies Any Declines Culture/Zoroastrianism/[facility] Cultural/Zoroastrianism Needs that may affect No Treatment Plan Would you allow our hospital contracting executive to No meet you for the purpose of spiritual/ emotional support? [facility] to contact place of [facility] No WC - Nurse 1 - General Ulcer Measurement Start: 10/05/21 09:27 Freq: Status: Active Protocol: Activity Type Activity Date Activity User E-Sign Co-Sign Detail Recorded Client Recorded Date Recorded By Document 10/05/21 09:59 [id number] 10/05/21 10:08 MW 10/05/21 09:59 Wound Center Nurse 1 #1 Left [place] -Combined with other wound No -Current Size (cm) - Length 3.2 -Current Size (cm) - Width 3.6 -Current Size (cm) - Depth 0.1 -Total Square Cm 11.52 -Photo Taken No -Epithelialization None Present -Tunneling No -Undermining/Tunneling No -Circular Undermining No -Exudate Amt Medium -Exudate Type Serosanguineous -Wound Margin Flat & Intact -Granulation Amt Large (67-100%) -Granulation Quality [place] -Slough/Fibrin Yes -Necrosis Amt Small (1-33%) -Necrotic Tissue Type Adherent Slough -Structure Exposed N/A -Texture (Jada-wound Skin Appearance) Assessed, Localized Edema -Moisture (Jada-wound Skin Appearance) Assessed,Dry/ Scaly -Color (Jada-wound Skin Appearance) Assessed, Hemosiderin Staining,Rubor -Temperature (Jada-wound Skin No Abnormality Appearance) (Pt Warm) -Tenderness on Palpation (Jada-wound No Skin Appearance) -Ulcer Cleansing Rinsed/ Irrigated with Saline -Foul Odor after Cleansing No -Anesthetic Used 5% Lidocaine Gel Lower Limb Edema Present Yes Left Calf (cm) 41.0 Left Ankle (cm) 23.0 WC - Nurse 2 - General Ulcer CM Notes Start: 10/05/21 09:27 Freq: Status: Active Protocol: Activity Type Activity Date Activity User E-Sign Co-Sign Detail Recorded Client Recorded Date Recorded By Document 10/05/21 10:25 MW [id number] 10/05/21 10:30 MW 10/05/21 10:25 Wound Center Nurse 2 #1 Left [place] -Time 10:27 -Correct Patient Yes -Correct Side, Site, Position Yes -Correct Procedure Yes -Procedure Performed Yes -Type of Procedure Debridement -Clinical Debridement Subcutaneous -Tissue Removed Subcutaneous -Post Debridement (cm) - Length 3.5 -Post Debridement (cm) - Width 3.5 -Post Debridement (cm) - Depth 0.1 -Total Square (Post) (cm) 12.25 -Area of Debridement (cm) - Length 3.5 -Area of Debridement (cm) - Width 3.5 -Total Square (Area) (cm) 12.25 -Tunneling No -Undermining/Tunneling No -Circular Undermining No -Wound/Ulcer Outcome Not Healed -Ulcer Cleansing Rinsed/ Irrigated with Saline -Foul Odor after Cleansing No -Bioengineered Tissue No -Bleeding Controlled with Pressure -Treatment Response Procedure Tolerated Well -Offloading No -Debridement - Subq, 1st 20sq cm Yes Pain Scale: 0-10 Numeric Is Patient Pain Free? Yes BRYANNA - Nurse 3 - General Ulcer D/C NN Start: 10/05/21 09:27 Freq: Status: Active Protocol: Activity Type Activity Date Activity User E-Sign Co-Sign Detail Recorded Client Recorded Date Recorded By Document 10/05/21 10:36 MW [id number] 10/05/21 10:37 MW 10/05/21 10:36 Wound Care Nurse 3 #1 Left [place] -Ulcer Cleansing Rinsed/ Irrigated with Saline -Foul Odor after Cleansing No -Negative Pressure Wound Therapy N/A -Primary Dressing Applied Fibracol Plus 4x4,NonAdherent Contact Layer -Primary Dressing Covered/Secured with Dry Gauze & Roll Gauze, Secured with Tape -Fibracol Plus 4x4 1 Left -Lotion applied to leg before No compression wrap -Tubular Bandage Double Layer -Size of Tubigrip Used Size E -Size E ($) 2 Treatment Response Procedure Tolerated Well Pain Scale: 0-10 Numeric Is Patient Pain Free? Yes Teaching: Wound Center Dressing Your Wound -Person Taught Patient,Family -Teaching Method Discussion, Demonstration -Response to teaching Verbalize understanding WC - Visit Discharge Discharge Condition Stable Ambulatory Status Walker Transportation Private Auto Accompanied by Medication Reconcilliation completed & No provided to patient/care provider Clinical Summary of Care Provided Yes Charges/Coding Visit Charges Office Visits / Consults: 31239 OV L3 Est Procedures Integumentary [id number]: [id number] [place] subq tissue 20 sq cm/< Assessment/Plan Assessment/Plan (1) Ulcer of left lower extremity with fat layer exposed: CODE(S): L97.922 - Non-pressure chronic ulcer of unspecified part of left lower leg with fat layer exposed (2) DM type 2 (diabetes mellitus, type 2): CODE(S): E11.9 - Type 2 diabetes mellitus without complications QUALIFIERS: 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 No indication for culture at this time, patient is currently on antibiotic and ulcer does not look clinically infected. Fibrocol daily with Adaptic over top. Double layer Tubigrip for edema management. Optimal diabetes control recommended, most recent A1c was at 5.3. Vitamin C, D and zinc also discussed. Leg elevation and exercise as tolerated discussed. Increase protein intake. His questions were answered and he was advised to call with any further questions or concerns. Follow-up in 1 week. This note was generated with Jasper dictation software. It may contain incorrect words, spelling, and punctuation that were not noted in checking the note before signing.
[2021-10-12 10:37] VITALS: BP 97/63; PULSE 82; RESP 16; TEMP 36.2; BMI 33.2
--- NOTE | 2021-10-12 13:11 | PCM.WC.PN ---
History of Present Illness Date of Service: 10/12/21 Chief Complaint: Left Leg Ulcer History of Wound: Mr. Turcios is a 71-year-old who was referred to the wound center by his primary care physician due to a left lower extremity ulcer. Said to have been noted by his few days ago. Patient is legally blind. They deny any known precipitating factor. No known injury. Since noting ulcer, he was seen by his primary care physician who did some labs and also started him on doxycycline which he is currently taking. His states that she has been cleaning it and doing some dressing changes at home as well. He did not report chills, fever or otherwise feeling of unwell. Most recent A1c was at 5.3. Progress of Wound: Left lower extremity ulceration is improving. Been applying Fibracol. No new concerns at this time. Objective Data Objective Data Vital Signs: Vital Signs Temp Pulse Resp BP 97.1 F L 82 16 97/63 10/12/21 10:37 10/12/21 10:37 10/12/21 10:37 10/12/21 10:37 Oxygen Delivery Method Room Air Weight: 266 lb Body Mass Index (BMI) 33.2 Charges/Coding Procedures Integumentary 111xxx-113xx: 53101 Rowan subq tissue 20 sq cm/< Physical Exam Const alert, oriented x3 and no apparent distress General Appearance: cooperative, comfortable and well kempt HEENT normocephalic and head/scalp atraumatic Neck full ROM General: normal visual inspection Resp normal respiratory effort Effort and Inspection: able to speak in complete sentences Cardio regular rate, regular rhythm, S1 normal heart sound and S2 normal heart sound GI soft to palpation and non-tender Extremity General Extremity: edema Skin Wounds: wounds noted Neuro oriented x3, CN's II-XII intact bilaterally, moves all extremities and no focal motor deficits Psych mental status grossly normal Appearance: grossly normal Attitude: calm Activity / Motor Behavior: appropriate eye contact Debridement Note Debridement Note Wound debrided: Left lower extremity Type of Debridement: Excisional debridement Anesthesia Used: 4% Lidocaine Solution Depth: Down to and including healthy tissue Percentage of wound debrided: 100 Instrument Used: 5mm curette Tissue Removed: Slough and devitalized tissue Severity: Fat Layer Exposed Amount of bleeding with debridement: Mild Bleeding Controlled with: Pressure Patient tolerated procedure: Patient tolerated procedure well Post-Debridement Measurements and Additional Note: Post-Debridement Measurements/Treatment BRYANNA - Nurse 1 - General Ulcer Assessment Start: 10/05/21 09:27 Freq: Status: Active Protocol: OLIVIA Activity Type Activity Date Activity User E-Sign Co-Sign Detail Recorded Client Recorded Date Recorded By Document 10/05/21 09:59 MW [id number] 10/05/21 10:08 MW Document 10/12/21 10:37 MW [id number] 10/12/21 10:47 MW 10/05/21 10/12/21 09:59 10:37 WC - Today's Visit Information Type of service Follow-up Visit Follow-up Visit (Physician/PEDIATRIC DENTIST (Physician/PEDIATRIC DENTIST ) ) Arrival Mode Wheelchair Wheelchair Transfer Assistance Manual Manual Accompanied by Patient Identification Verified (Name & Yes Yes ) Patient Requires Transmission-Based No No Precautions Safety Precautions Fall Prevention Finger Stick Blood Sugar(mg/dl) (if 112 121 indicated): Blood Sugar Stated by Stated by Patient Patient Height and Weight Height 6 ft 3 in Weight 266 lb Weight in Pounds 266.0 lbs Body Mass Index (BMI) 33.2 33.2 BMI Classification Obese Obese BSA - Genna 2.48 Vital Signs Temperature (97.8 F-99.1 F) 97.1 F L 97.1 F L Temperature Source Temporal Temporal Pulse Rate (60-100) 78 82 Pulse Location Monitor Monitor Respiratory Rate (12-18) 18 16 Respiratory rate source Observation Observation Oxygen Delivery Method Room Air Room Air Blood Pressure (90/60-120/80) 102/55 L 97/63 Blood Pressure Mean (mm Hg) 70 74 Source Monitor Monitor Position Sitting Sitting Blood Pressure Location Right Arm Right Arm Have you changed medications since your No last visit? Any new allergies or adverse reactions No Had a fall/change in ADL's that may No increase risk of falls Signs or symptoms of abuse and/or No neglect since last visit Have you been in the hospital since your No last visit? Has dressing in place as prescribed Yes Has compression in place as prescribed Yes Has offloadiing in place as prescribed N/A Experienced any changes in pain level or No management History Since Last Visit- (Skip if this is Patient's initial visit) Left Footwear Regular Shoe Regular Shoe Right Footwear Regular Shoe Regular Shoe Pain Scale: 0-10 Numeric Is Patient Pain Free? Yes Yes Communication Assessment Preferred language Luxembour[place] Able to Read No Able to Write No Communication Tools None Caregiver Communication Skills Unable To Read, Impairment Unable To Write Right Hearing Abillity Normal Left Hearing Abillity Normal Visual Assistive Devices Legally Blind Teaching Assessment Preferences Verbal,Written Barriers to Learning None Readiness To Learn Excellent Willingness to Engage in Self Management High Activies Readiness to Engage in Self Management High Activities Anxiety Level Calm Cooperation Cooperative Perception Coherent Interest in Health Problem Asks Questions Education Importance Acknowledges Need Smoking Status Former smoker Is Patient Diabetic No Functional Assessment Recent Decline in Ability to Perform Denies Any Declines Culture/Mandaeism/Marriage And Family Counselor Cultural/Mandaeism Needs that may affect No Treatment Plan Would you allow our hospital section crews activities clerk to No meet you for the purpose of spiritual/ emotional support? Marriage And Family Counselor to contact place of congregation No WC - Nurse 1 - General Ulcer Measurement Start: 10/05/21 09:27 Freq: Status: Active Protocol: Activity Type Activity Date Activity User E-Sign Co-Sign Detail Recorded Client Recorded Date Recorded By Document 10/05/21 09:59 MW [id number] 10/05/21 10:08 MW Document 10/12/21 10:37 MW [id number] 10/12/21 10:47 MW 10/05/21 10/12/21 09:59 10:37 Wound Center Nurse 1 #3 L CHEN -Combined with other wound No No -Current Size (cm) - Length 3.2 2.8 -Current Size (cm) - Width 3.6 3.0 -Current Size (cm) - Depth 0.1 0.1 -Total Square Cm 11.52 8.40 -Photo Taken No No -Epithelialization None Present Small 1-33% -Tunneling No No -Undermining/Tunneling No No -Circular Undermining No No -Exudate Amt Medium -Exudate Type Serosanguineous -Wound Margin Flat & Intact -Granulation Amt Large (67-100%) -Granulation Quality [place] -Slough/Fibrin Yes Yes -Necrosis Amt Small (1-33%) Small (1-33%) -Necrotic Tissue Type Adherent Slough Adherent Slough -Structure Exposed N/A N/A -Texture (Jada-wound Skin Appearance) Assessed, Assessed, Localized Edema Scarring -Moisture (Jada-wound Skin Appearance) Assessed,Dry/ Assessed,Dry/ Scaly Scaly -Color (Jada-wound Skin Appearance) Assessed, Assessed,Rubor Hemosiderin Staining,Rubor -Temperature (Jada-wound Skin No Abnormality No Abnormality Appearance) (Pt Warm) (Pt Warm) -Tenderness on Palpation (Jada-wound No No Skin Appearance) -Ulcer Cleansing Rinsed/ Soap and Water Irrigated with Saline -Foul Odor after Cleansing No No -Anesthetic Used 5% Lidocaine 5% Lidocaine Gel Gel Lower Limb Edema Present Yes Yes Left Calf (cm) 41.0 39.5 Left Ankle (cm) 23.0 23.0 WC - Nurse 2 - General Ulcer CM Notes Start: 10/05/21 09:27 Freq: Status: Active Protocol: Activity Type Activity Date Activity User E-Sign Co-Sign Detail Recorded Client Recorded Date Recorded By Document 10/05/21 10:25 MW [id number] 10/05/21 10:30 MW Document 10/12/21 10:55 MW [id number] 10/12/21 10:58 MW 10/05/21 10/12/21 10:25 10:55 Wound Center Nurse 2 #3 L CHEN -Time 10:27 10:55 -Correct Patient Yes Yes -Correct Side, Site, Position Yes Yes -Correct Procedure Yes Yes -Procedure Performed Yes Yes -Type of Procedure Debridement Debridement -Clinical Debridement Subcutaneous Subcutaneous -Tissue Removed Subcutaneous Subcutaneous -Post Debridement (cm) - Length 3.5 3.0 -Post Debridement (cm) - Width 3.5 3.0 -Post Debridement (cm) - Depth 0.1 0.1 -Total Square (Post) (cm) 12.25 9.00 -Area of Debridement (cm) - Length 3.5 3.0 -Area of Debridement (cm) - Width 3.5 3.0 -Total Square (Area) (cm) 12.25 9.00 -Tunneling No No -Undermining/Tunneling No No -Circular Undermining No No -Wound/Ulcer Outcome Not Healed Not Healed -Ulcer Cleansing Rinsed/ Rinsed/ Irrigated with Irrigated with Saline Saline -Foul Odor after Cleansing No No -Bioengineered Tissue No No -Bleeding Controlled with Pressure Pressure -Treatment Response Procedure Procedure Tolerated Well Tolerated Well -Offloading No No -Debridement - Subq, 1st 20sq cm Yes Yes Pain Scale: 0-10 Numeric Is Patient Pain Free? Yes Yes - Nurse 3 - General Ulcer D/C NN Start: 10/05/21 09:27 Freq: Status: Active Protocol: Activity Type Activity Date Activity User E-Sign Co-Sign Detail Recorded Client Recorded Date Recorded By Document 10/05/21 10:36 MW [id number] 10/05/21 10:37 MW Document 10/12/21 11:11 DL [id number] 10/12/21 11:15 DL 10/05/21 10/12/21 10:36 11:11 Wound Care Nurse 3 #3 L CHEN -Ulcer Cleansing Rinsed/ Rinsed/ Irrigated with Irrigated with Saline Saline -Foul Odor after Cleansing No No -Negative Pressure Wound Therapy N/A -Primary Dressing Applied Fibracol Plus Fibracol Plus 4x4,NonAdherent 4x4,NonAdherent Contact Layer Contact Layer -Primary Dressing Covered/Secured with Dry Gauze & Dry Gauze & Roll Gauze, Roll Gauze, Secured with Secured with Tape Tape -Fibracol Plus 4x4 1 1 Left -Lotion applied to leg before No compression wrap -Tubular Bandage Double Layer -Size of Tubigrip Used Size E -Size E ($) 2 -Other tubigrip/single Treatment Response Procedure Procedure Tolerated Well Tolerated Well Pain Scale: 0-10 Numeric Is Patient Pain Free? Yes Yes Teaching: Wound Center Dressing Your Wound -Person Taught Patient,Family -Teaching Method Discussion, Demonstration -Response to teaching Verbalize understanding WC - Visit Discharge Discharge Condition Stable Stable Ambulatory Status Walker Ambulatory Transportation Private Auto Private Auto Accompanied by Medication Reconcilliation completed & No provided to patient/care provider Clinical Summary of Care Provided Yes Assessment/Plan Assessment/Plan (1) Ulcer of left lower extremity with fat layer exposed: CODE(S): L97.922 - Non-pressure chronic ulcer of unspecified part of left lower leg with fat layer exposed (2) DM type 2 (diabetes mellitus, type 2): CODE(S): E11.9 - Type 2 diabetes mellitus without complications QUALIFIERS: Diabetes mellitus long filler cigar roller machine insulin use: with retirement use Diabetes mellitus complication status: with other specified complication Qualified Code(s): E11.69 - Type 2 diabetes mellitus with other specified complication; Z79.4 - assisted (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 It is improving. Continue Fibrocol daily with Adaptic over top. Single-layer Tubigrip for edema management. Optimal diabetes control recommended, most recent A1c was at 5.3. Vitamin C, D and zinc also discussed. Leg elevation and exercise as tolerated discussed. Increase protein intake. His questions were answered and he was advised to call with any further questions or concerns. Follow-up in 1 week. This note was generated with [employer] dictation software. It may contain incorrect words, spelling, and punctuation that were not noted in checking the note before signing.
[2021-10-19 10:05] VITALS: BP 127/75; PULSE 82; RESP 16; TEMP 35.7; BMI 33.2
[2021-10-26 10:38] VITALS: BP 99/57; PULSE 93; RESP 18; TEMP 35.8; BMI 33.2
--- NOTE | 2021-10-26 11:41 | PCM.WC.PN ---
History of Present Illness Date of Service: 10/26/21 Chief Complaint: Left Leg Ulcer History of Wound: Mr. Turcios is a 71-year-old who was referred to the wound center by his primary care physician due to a left lower extremity ulcer. Said to have been noted by his few days ago. Patient is legally blind. They deny any known precipitating factor. No known injury. Since noting ulcer, he was seen by his primary care physician who did some labs and also started him on doxycycline which he is currently taking. His states that she has been cleaning it and doing some dressing changes at home as well. He did not report chills, fever or otherwise feeling of unwell. Most recent A1c was at 5.3. Progress of Wound: Left lower extremity ulceration is improving. Been applying Fibracol. No new concerns at this time. Objective Data Objective Data Vital Signs: Vital Signs Temp Pulse Resp BP 96.5 F L 93 18 99/57 L 10/26/21 10:38 10/26/21 10:38 10/26/21 10:38 10/26/21 10:38 Oxygen Delivery Method Room Air Weight: 266 lb Body Mass Index (BMI) 33.2 Charges/Coding Procedures Integumentary 111xxx-113xx: [id number] Rowan subq tissue 20 sq cm/< Physical Exam Const alert, oriented x3 and no apparent distress General Appearance: cooperative, comfortable and well kempt HEENT normocephalic and head/scalp atraumatic Neck full ROM General: normal visual inspection Resp normal respiratory effort Effort and Inspection: able to speak in complete sentences Cardio regular rate, regular rhythm, S1 normal heart sound and S2 normal heart sound GI soft to palpation and non-tender Extremity General Extremity: edema Skin Wounds: wounds noted Neuro oriented x3, CN's II-XII intact bilaterally, moves all extremities and no focal motor deficits Psych mental status grossly normal Appearance: grossly normal Attitude: calm Activity / Motor Behavior: appropriate eye contact Debridement Note Debridement Note Wound debrided: Left lower extremity Type of Debridement: Excisional debridement Anesthesia Used: 4% Lidocaine Solution Depth: Down to and including healthy tissue and in the subcutaneous layer Percentage of wound debrided: 100 Instrument Used: 3mm curette Tissue Removed: Slough and devitalized tissue Severity: Fat Layer Exposed Amount of bleeding with debridement: Mild Bleeding Controlled with: Pressure Patient tolerated procedure: Patient tolerated procedure well Post-Debridement Measurements and Additional Note: Post-Debridement Measurements/Treatment WC - Nurse 1 - General Ulcer Assessment Start: 10/05/21 09:27 Freq: Status: Active Protocol: OLIVIA Activity Type Activity Date Activity User E-Sign Co-Sign Detail Recorded Client Recorded Date Recorded By Document 10/05/21 09:59 MW [id number] 10/05/21 10:08 MW Document 10/12/21 10:37 MW [id number] 10/12/21 10:47 MW Document 10/19/21 10:05 BMF [id number] 10/19/21 10:16 BMF Document 10/26/21 10:38 DL [id number] 10/26/21 10:42 DL 10/05/21 10/12/21 10/19/21 09:59 10:37 10:05 - Today's Visit Information Type of service Follow-up Visit Follow-up Visit Follow-up Visit (Physician/LANDFILL GAS COLLECTION OPERATOR (Physician/LANDFILL GAS COLLECTION OPERATOR (Physician/LANDFILL GAS COLLECTION OPERATOR ) ) ) Arrival Mode Wheelchair Wheelchair Ambulatory,Cane ,Wheelchair Transfer Assistance Manual Manual Other Transfer Assist (Other) 1 stand by Accompanied by Patient Identification Verified (Name & Yes Yes Yes ) Patient Requires Transmission-Based No No No Precautions Safety Precautions Fall Prevention Finger Stick Blood Sugar(mg/dl) (if 112 121 indicated): Blood Sugar Stated by Stated by Patient Patient Height and Weight Height 6 ft 3 in Weight 266 lb Weight in Pounds 266.0 lbs Body Mass Index (BMI) 33.2 33.2 33.2 BMI Classification Obese Obese Obese BSA - Genna 2.48 Vital Signs Temperature (97.8 F-99.1 F) 97.1 F L 97.1 F L 96.3 F L Temperature Source Temporal Temporal Temporal Pulse Rate (60-100) 78 82 82 Pulse Location Monitor Monitor Monitor Respiratory Rate (12-18) 18 16 16 Respiratory rate source Observation Observation Observation Oxygen Delivery Method Room Air Room Air Room Air Blood Pressure (90/60-120/80) 102/55 L 97/63 127/75 H Blood Pressure Mean (mm Hg) 70 74 92 Source Monitor Monitor Monitor Position Sitting Sitting Sitting Blood Pressure Location Right Arm Right Arm Right Arm Have you changed medications since your No No last visit? Any new allergies or adverse reactions No No Had a fall/change in ADL's that may No No increase risk of falls Signs or symptoms of abuse and/or No No neglect since last visit Have you been in the hospital since your No No last visit? Has dressing in place as prescribed Yes Yes Has compression in place as prescribed Yes Yes Has offloadiing in place as prescribed N/A N/A Experienced any changes in pain level or No No management History Since Last Visit- (Skip if this is Patient's initial visit) Left Footwear Regular Shoe Regular Shoe Regular Shoe Right Footwear Regular Shoe Regular Shoe Regular Shoe Pain Scale: 0-10 Numeric Is Patient Pain Free? Yes Yes Yes Communication Assessment Preferred language Divehi Able to Read No Able to Write No Communication Tools None Caregiver Communication Skills Unable To Read, Impairment Unable To Write Right Hearing Abillity Normal Left Hearing Abillity Normal Visual Assistive Devices Legally Blind Teaching Assessment Preferences Verbal,Written Barriers to Learning None Readiness To Learn Excellent Willingness to Engage in Self Management High Activies Readiness to Engage in Self Management High Activities Anxiety Level Calm Cooperation Cooperative Perception Coherent Interest in Health Problem Asks Questions Education Importance Acknowledges Need Smoking Status Former smoker Is Patient Diabetic No Functional Assessment Recent Decline in Ability to Perform Denies Any Declines Culture/Cheondoism/Electrical Assistant Cultural/Cheondoism Needs that may affect No Treatment Plan Would you allow our hospital manufacturing analyst to No meet you for the purpose of spiritual/ emotional support? Electrical Assistant to contact place of judaism No 10/26/21 10:38 WC - Today's Visit Information Type of service Follow-up Visit (Physician/LANDFILL GAS COLLECTION OPERATOR ) Arrival Mode Ambulatory,Cane Transfer Assistance None Transfer Assist (Other) Accompanied by Patient Identification Verified (Name & Yes ) Patient Requires Transmission-Based No Precautions Safety Precautions Finger Stick Blood Sugar(mg/dl) (if 124 indicated): Blood Sugar Stated by Patient Height and Weight Height Weight Weight in Pounds Body Mass Index (BMI) 33.2 BMI Classification Obese BSA - Genna Vital Signs Temperature (97.8 F-99.1 F) 96.5 F L Temperature Source Temporal Pulse Rate (60-100) 93 Pulse Location Monitor Respiratory Rate (12-18) 18 Respiratory rate source Observation Oxygen Delivery Method Blood Pressure (90/60-120/80) 99/57 L Blood Pressure Mean (mm Hg) 71 Source Monitor Position Blood Pressure Location Have you changed medications since your No last visit? Any new allergies or adverse reactions No Had a fall/change in ADL's that may No increase risk of falls Signs or symptoms of abuse and/or No neglect since last visit Have you been in the hospital since your No last visit? Has dressing in place as prescribed Yes Has compression in place as prescribed Yes Has offloadiing in place as prescribed N/A Experienced any changes in pain level or No management History Since Last Visit- (Skip if this is Patient's initial visit) Left Footwear Right Footwear Pain Scale: 0-10 Numeric Is Patient Pain Free? Yes Communication Assessment Preferred language Able to Read Able to Write Communication Tools Caregiver Communication Skills Impairment Right Hearing Abillity Left Hearing Abillity Visual Assistive Devices Teaching Assessment Preferences Barriers to Learning Readiness To Learn Willingness to Engage in Self Management Activies Readiness to Engage in Self Management Activities Anxiety Level Cooperation Perception Interest in Health Problem Education Importance Smoking Status Is Patient Diabetic Functional Assessment Recent Decline in Ability to Perform Culture/Cheondoism/Electrical Assistant Cultural/Cheondoism Needs that may affect Treatment Plan Would you allow our hospital manufacturing analyst to meet you for the purpose of spiritual/ emotional support? Electrical Assistant to contact place of judaism WC - Nurse 1 - General Ulcer Measurement Start: 10/05/21 09:27 Freq: Status: Active Protocol: Activity Type Activity Date Activity User E-Sign Co-Sign Detail Recorded Client Recorded Date Recorded By Document 10/05/21 09:59 MW [id number] 10/05/21 10:08 MW Document 10/12/21 10:37 [id number] 10/12/21 10:47 MW Document 10/19/21 10:05 [facility] [id number] 10/19/21 10:16 BMF Document 10/26/21 10:38 DL [id number] 10/26/21 10:42 DL 10/05/21 10/12/21 10/19/21 09:59 10:37 10:05 Wound Center Nurse 1 #3 L CHEN -Combined with other wound No No No -Current Size (cm) - Length 3.2 2.8 2.3 -Current Size (cm) - Width 3.6 3.0 2.3 -Current Size (cm) - Depth 0.1 0.1 0.1 -Total Square Cm 11.52 8.40 5.29 -Date of Last Picture (Recall this 10/19/21 field) -Photo Taken No No Yes -Epithelialization None Present Small 1-33% -Tunneling No No No -Undermining/Tunneling No No No -Circular Undermining No No No -Exudate Amt Medium Medium -Exudate Type Serosanguineous Serosanguineous -Wound Margin Flat & Intact Distinct, Outline Attached -Granulation Amt Large (67-100%) Medium (34-66%) -Granulation Quality [place] Red -Slough/Fibrin Yes Yes Yes -Necrosis Amt Small (1-33%) Small (1-33%) Medium (34-66%) -Necrotic Tissue Type Adherent Slough Adherent Slough Adherent Slough -Structure Exposed N/A N/A -Texture (Jada-wound Skin Appearance) Assessed, Assessed, Assessed, Localized Edema Scarring Scarring -Moisture (Jada-wound Skin Appearance) Assessed,Dry/ Assessed,Dry/ Assessed Scaly Scaly -Color (Jada-wound Skin Appearance) Assessed, Assessed,Rubor Assessed Hemosiderin Staining,Rubor -Temperature (Jada-wound Skin No Abnormality No Abnormality No Abnormality Appearance) (Pt Warm) (Pt Warm) (Pt Warm) -Tenderness on Palpation (Jada-wound No No No Skin Appearance) -Ulcer Cleansing Rinsed/ Soap and Water Soap and Water Irrigated with Saline -Foul Odor after Cleansing No No No -Anesthetic Used 5% Lidocaine 5% Lidocaine 5% Lidocaine Gel Gel Gel Lower Limb Edema Present Yes Yes Yes Left Calf (cm) 41.0 39.5 41.2 Left Ankle (cm) 23.0 23.0 22 10/26/21 10:38 Wound Center Nurse 1 #3 L CHEN -Combined with other wound -Current Size (cm) - Length 2 -Current Size (cm) - Width 1.6 -Current Size (cm) - Depth 0.1 -Total Square Cm 3.2 -Date of Last Picture (Recall this field) -Photo Taken No -Epithelialization -Tunneling -Undermining/Tunneling -Circular Undermining -Exudate Amt Small -Exudate Type -Wound Margin Distinct, Outline Attached -Granulation Amt Large (67-100%) -Granulation Quality Pale,[place] -Slough/Fibrin -Necrosis Amt None Present (0 %) -Necrotic Tissue Type -Structure Exposed N/A -Texture (Jada-wound Skin Appearance) Scarring -Moisture (Jada-wound Skin Appearance) Dry/Scaly -Color (Jada-wound Skin Appearance) Hemosiderin Staining -Temperature (Jada-wound Skin No Abnormality Appearance) (Pt Warm) -Tenderness on Palpation (Jada-wound Skin Appearance) -Ulcer Cleansing Rinsed/ Irrigated with Saline -Foul Odor after Cleansing No -Anesthetic Used 4% Lidocaine Solution Lower Limb Edema Present Left Calf (cm) 38.5 Left Ankle (cm) 21.5 WC - Nurse 2 - General Ulcer CM Notes Start: 10/05/21 09:27 Freq: Status: Active Protocol: Activity Type Activity Date Activity User E-Sign Co-Sign Detail Recorded Client Recorded Date Recorded By Document 10/05/21 10:25 MW [id number] 10/05/21 10:30 MW Document 10/12/21 10:55 MW [id number] 10/12/21 10:58 MW Document 10/19/21 10:26 MW [id number] 10/19/21 10:31 MW Document 10/26/21 11:00 [id number] 10/26/21 11:03 JF 10/05/21 10/12/21 10/19/21 10:25 10:55 10:26 Wound Center Nurse 2 #3 L CHEN -Time 10:27 10:55 10:30 -Correct Patient Yes Yes Yes -Correct Side, Site, Position Yes Yes Yes -Correct Procedure Yes Yes Yes -Procedure Performed Yes Yes Yes -Type of Procedure Debridement Debridement Debridement -Clinical Debridement Subcutaneous Subcutaneous Subcutaneous -Tissue Removed Subcutaneous Subcutaneous Subcutaneous -Post Debridement (cm) - Length 3.5 3.0 2.5 -Post Debridement (cm) - Width 3.5 3.0 1.5 -Post Debridement (cm) - Depth 0.1 0.1 0.1 -Total Square (Post) (cm) 12.25 9.00 3.75 -Area of Debridement (cm) - Length 3.5 3.0 2.5 -Area of Debridement (cm) - Width 3.5 3.0 1.5 -Total Square (Area) (cm) 12.25 9.00 3.75 -Tunneling No No No -Undermining/Tunneling No No No -Circular Undermining No No No -Wound/Ulcer Outcome Not Healed Not Healed Not Healed -Ulcer Cleansing Rinsed/ Rinsed/ Rinsed/ Irrigated with Irrigated with Irrigated with Saline Saline Saline -Foul Odor after Cleansing No No No -Bioengineered Tissue No No No -Bleeding Controlled with Pressure Pressure Pressure -Treatment Response Procedure Procedure Procedure Tolerated Well Tolerated Well Tolerated Well -Offloading No No No -Debridement - Subq, 1st 20sq cm Yes Yes Yes Pain Scale: 0-10 Numeric Is Patient Pain Free? Yes Yes Yes 10/26/21 11:00 Wound Center Nurse 2 #3 L CHEN -Time 11:01 -Correct Patient Yes -Correct Side, Site, Position Yes -Correct Procedure Yes -Procedure Performed Yes -Type of Procedure Debridement -Clinical Debridement Subcutaneous -Tissue Removed Subcutaneous -Post Debridement (cm) - Length 2.0 -Post Debridement (cm) - Width 1.0 -Post Debridement (cm) - Depth 0.1 -Total Square (Post) (cm) 2.00 -Area of Debridement (cm) - Length 2.0 -Area of Debridement (cm) - Width 1.0 -Total Square (Area) (cm) 2.00 -Tunneling No -Undermining/Tunneling No -Circular Undermining No -Wound/Ulcer Outcome Not Healed -Ulcer Cleansing Rinsed/ Irrigated with Saline -Foul Odor after Cleansing No -Bioengineered Tissue No -Bleeding Controlled with Pressure -Treatment Response Procedure Tolerated Well -Offloading No -Debridement - Subq, 1st 20sq cm Yes Pain Scale: 0-10 Numeric Is Patient Pain Free? Yes WC - Nurse 3 - General Ulcer D/C NN Start: 10/05/21 09:27 Freq: Status: Active Protocol: Activity Type Activity Date Activity User E-Sign Co-Sign Detail Recorded Client Recorded Date Recorded By Document 10/05/21 10:36 MW [id number] 10/05/21 10:37 MW Document 10/12/21 11:11 DL [id number] 10/12/21 11:15 DL Document 10/19/21 10:31 MW [id number] 10/19/21 10:32 MW Document 10/26/21 11:14 DL [id number] 10/26/21 11:15 DL 10/05/21 10/12/21 10/19/21 10:36 11:11 10:31 Wound Care Nurse 3 #3 L CHEN -Ulcer Cleansing Rinsed/ Rinsed/ Rinsed/ Irrigated with Irrigated with Irrigated with Saline Saline Saline -Foul Odor after Cleansing No No No -Negative Pressure Wound Therapy N/A N/A -Primary Dressing Applied Fibracol Plus Fibracol Plus Fibracol Plus 4x4,NonAdherent 4x4,NonAdherent 4x4,NonAdherent Contact Layer Contact Layer Contact Layer -Primary Dressing Covered/Secured with Dry Gauze & Dry Gauze & Dry Gauze & Roll Gauze, Roll Gauze, Roll Gauze, Secured with Secured with Secured with Tape Tape Tape -Fibracol Plus 4x4 1 1 1 Left -Lotion applied to leg before No No compression wrap -Tubular Bandage Double Layer -Size of Tubigrip Used Size E -Size E ($) 2 -Other tubigrip/single single layer tubigrip Treatment Response Procedure Procedure Procedure Tolerated Well Tolerated Well Tolerated Well Pain Scale: 0-10 Numeric Is Patient Pain Free? Yes Yes Yes Teaching: Wound Center Dressing Your Wound -Person Taught Patient,Family Patient -Teaching Method Discussion, Discussion Demonstration -Response to teaching Verbalize Verbalize understanding understanding WC - Visit Discharge Discharge Condition Stable Stable Stable Ambulatory Status Walker Ambulatory Wheelchair Transportation Private Auto Private Auto Private Auto Accompanied by Medication Reconcilliation completed & No No provided to patient/care provider Clinical Summary of Care Provided Yes Yes Facility Type Orders Sent 10/26/21 11:14 Wound Care Nurse 3 #3 L CHEN -Ulcer Cleansing Rinsed/ Irrigated with Saline -Foul Odor after Cleansing No -Negative Pressure Wound Therapy -Primary Dressing Applied Fibracol Plus 4x4 -Primary Dressing Covered/Secured with Dry Gauze,Dry Gauze & Roll Gauze -Fibracol Plus 4x4 1 Left -Lotion applied to leg before compression wrap -Tubular Bandage Single Layer -Size of Tubigrip Used Size E -Size E ($) 1 -Other Treatment Response Procedure Tolerated Well Pain Scale: 0-10 Numeric Is Patient Pain Free? Yes Teaching: Wound Center Dressing Your Wound -Person Taught -Teaching Method -Response to teaching WC - Visit Discharge Discharge Condition Stable Ambulatory Status Ambulatory, Wheelchair Transportation Private Auto Accompanied by Medication Reconcilliation completed & provided to patient/care provider Clinical Summary of Care Provided Facility Type Home Health Orders Sent Yes Assessment/Plan Assessment/Plan (1) Ulcer of left lower extremity with fat layer exposed: CODE(S): L97.922 - Non-pressure chronic ulcer of unspecified part of left lower leg with fat layer exposed (2) DM type 2 (diabetes mellitus, type 2): CODE(S): E11.9 - Type 2 diabetes mellitus without complications QUALIFIERS: Diabetes mellitus group home insulin use: with termite exterminator helper use Diabetes mellitus complication status: with other specified complication Qualified Code(s): E11.69 - Type 2 diabetes mellitus with other specified complication; Z79.4 - [facility] (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 Continues to show good improvement. Continue Fibrocol daily with Adaptic over top. Single-layer Tubigrip for edema management. Optimal diabetes control recommended, most recent A1c was at 5.3. Vitamin C, D and zinc also discussed. Leg elevation and exercise as tolerated discussed. Increase protein intake. His questions were answered and he was advised to call with any further questions or concerns. Follow-up in 1 week. This note was generated with [email or web address] software. It may contain incorrect words, spelling, and punctuation that were not noted in checking the note before signing.
== END 2021-10-31 23:59 | disposition home or self-care (01) ==
LOC: WC 10:15
PROVIDERS: PCP Family Medicine; Visit Provider Internal Medicine
DX: E11.622 Type 2 diabetes mellitus with other skin ulcer (principal); L97.822 Non-pressure chronic ulcer of other part of left lower leg with fat layer exposed; J44.9 Chronic obstructive pulmonary disease, unspecified; I11.0 Hypertensive heart disease with heart failure; I50.32 Chronic diastolic (congestive) heart failure; E11.59 Type 2 diabetes mellitus with other circulatory complications; I48.11 Longstanding persistent atrial fibrillation; Z79.4 Long term (current) use of insulin; E78.5 Hyperlipidemia, unspecified; Z87.891 Personal history of nicotine dependence; I87.2 Venous insufficiency (chronic) (peripheral); H54.8 Legal blindness, as defined in USA; E03.9 Hypothyroidism, unspecified; Z79.899 Other long term (current) drug therapy; E66.9 Obesity, unspecified; Z68.33 Body mass index [BMI] 33.0-33.9, adult; Z79.890 Hormone replacement therapy
CPT/HCPCS: 11042; 99213; G0463

== ENCOUNTER 2021-11-23 10:30 | Outpatient (RCR) | payer MEDICARE, OTHER, SELFPAY ==
[2021-11-01 01:13] VITALS: BP 99/57; PULSE 93; RESP 18; TEMP 35.8; BMI 33.2
[2021-11-02 08:18] VITALS: BP 122/72; PULSE 95; RESP 16; TEMP 36.2; BMI 33.2
--- NOTE | 2021-11-02 08:51 | PN.PCM_ITS ---
History of Present Illness Date of Service: 11/02/21 Chief Complaint: Left Leg Ulcer History of Wound: Mr. Turcios is a 71-year-old who was referred to the wound center by his primary care physician due to a left lower extremity ulcer. Said to have been noted by his few days ago. Patient is legally blind. They deny any known precipitating factor. No known injury. Since noting ulcer, he was seen by his primary care physician who did some labs and also started him on doxycycline which he is currently taking. His states that she has been cleaning it and doing some dressing changes at home as well. He did not report chills, fever or otherwise feeling of unwell. Most recent A1c was at 5.3. Progress of Wound: He presents with 2 new ulcers, his states that she is not sure how he got it. She thinks that he may have bumped his leg into something but is not sure about this. She has been applying Fibracol. Objective Data Objective Data Vital Signs: Vital Signs Temp Pulse Resp BP 97.1 F L 95 16 122/72 H 11/02/21 08:18 11/02/21 08:18 11/02/21 08:18 11/02/21 08:18 Oxygen Delivery Method Room Air Weight: 266 lb Body Mass Index (BMI) 33.2 Charges/Coding Procedures Integumentary 111xxx-113xx: [id number] Rowan subq tissue 20 sq cm/< Physical Exam Const alert, oriented x3 and no apparent distress General Appearance: cooperative, comfortable and well kempt HEENT normocephalic and head/scalp atraumatic Neck full ROM General: normal visual inspection Resp normal respiratory effort Effort and Inspection: able to speak in complete sentences Cardio regular rate, regular rhythm, S1 normal heart sound and S2 normal heart sound GI soft to palpation and non-tender Extremity General Extremity: edema Skin Wounds: wounds noted Neuro oriented x3, CN's II-XII intact bilaterally, moves all extremities and no focal motor deficits Psych mental status grossly normal Appearance: grossly normal Attitude: calm Activity / Motor Behavior: appropriate eye contact Debridement Note Debridement Note Wound debrided: Left lower extremity superior Type of Debridement: Excisional debridement Anesthesia Used: 4% Lidocaine Solution Depth: Down to and including healthy tissue and in the subcutaneous layer Percentage of wound debrided: 100 Instrument Used: 3mm curette Tissue Removed: Slough and devitalized tissue Severity: Fat Layer Exposed Amount of bleeding with debridement: Mild Bleeding Controlled with: Pressure Patient tolerated procedure: Patient tolerated procedure well Post-Debridement Measurements and Additional Note: Post-Debridement Measurements/Treatment - Nurse 1 - General Ulcer Assessment Start: 11/02/21 08:18 Freq: Status: Active Protocol: OLIVIA Activity Type Activity Date Activity User E-Sign Co-Sign Detail Recorded Client Recorded Date Recorded By Document 11/02/21 08:18 [facility] [id number] 11/02/21 08:27 [facility] 11/02/21 08:18 WC - Today's Visit Information Type of service Follow-up Visit (Physician/GOLD [employer]OSPECTOR ) Arrival Mode Ambulatory,Cane Transfer Assistance None Accompanied by Patient Identification Verified (Name & Yes ) Patient Requires Transmission-Based No Precautions Finger Stick Blood Sugar(mg/dl) (if 102 indicated): Blood Sugar Stated by Patient Height and Weight Body Mass Index (BMI) 33.2 BMI Classification Obese Vital Signs Temperature (97.8 F-99.1 F) 97.1 F L Temperature Source Temporal Pulse Rate (60-100) 95 Pulse Location Monitor Respiratory Rate (12-18) 16 Respiratory rate source Observation Oxygen Delivery Method Room Air Blood Pressure (90/60-120/80) 122/72 H Blood Pressure Mean (mm Hg) 88 Source Monitor Position Sitting Blood Pressure Location Left Arm History Since Last Visit- (Skip if this is Patient's initial visit) Have you changed medications since your No last visit? Any new allergies or adverse reactions No Had a fall/change in ADL's that may No increase risk of falls Signs or symptoms of abuse and/or No neglect since last visit Have you been in the hospital since your No last visit? Has dressing in place as prescribed Yes Has compression in place as prescribed Yes Has offloadiing in place as prescribed N/A Experienced any changes in pain level or No management Left Footwear Diabetic Shoe Right Footwear Diabetic Shoe Pain Scale: 0-10 Numeric Is Patient Pain Free? Yes - Nurse 1 - General Ulcer Measurement Start: 11/02/21 08:18 Freq: Status: Active Protocol: Activity Type Activity Date Activity User E-Sign Co-Sign Detail Recorded Client Recorded Date Recorded By Document 11/02/21 08:18 [facility] [id number] 11/02/21 08:27 [facility] 11/02/21 08:18 Wound Center Nurse 1 #5- LLE CLUSTER -Combined with other wound No -Current Size (cm) - Length 0.8 -Current Size (cm) - Width 1.3 -Current Size (cm) - Depth 0.1 -Total Square Cm 1.04 -Date of Last Picture (Recall this 11/02/21 field) -Photo Taken Yes -Epithelialization None Present -Tunneling No -Undermining/Tunneling No -Circular Undermining No -Exudate Amt Small -Exudate Type Serosanguineous -Wound Margin Distinct, Outline Attached -Granulation Amt Large (67-100%) -Granulation Quality Tatums -Slough/Fibrin Yes -Necrosis Amt Small (1-33%) -Necrotic Tissue Type Adherent Slough -Texture (Jada-wound Skin Appearance) Assessed, Scarring -Moisture (Jada-wound Skin Appearance) Assessed,Dry/ Scaly -Color (Jada-wound Skin Appearance) Assessed -Temperature (Jada-wound Skin No Abnormality Appearance) (Pt Warm) -Tenderness on Palpation (Jada-wound No Skin Appearance) -Ulcer Cleansing Soap and Water -Foul Odor after Cleansing No -Anesthetic Used 5% Lidocaine Gel #4- L [place] SUPERIOR -Combined with other wound No -Current Size (cm) - Length 1.5 -Current Size (cm) - Width 1.4 -Current Size (cm) - Depth 0.1 -Total Square Cm 2.10 -Date of Last Picture (Recall this 11/02/21 field) -Photo Taken Yes -Epithelialization None Present -Tunneling No -Undermining/Tunneling No -Circular Undermining No -Exudate Amt Small -Exudate Type Serosanguineous -Wound Margin Distinct, Outline Attached -Granulation Amt Medium (34-66%) -Granulation Quality Red -Slough/Fibrin Yes -Necrosis Amt Medium (34-66%) -Necrotic Tissue Type Adherent Slough -Texture (Jada-wound Skin Appearance) Assessed, Scarring -Moisture (Jada-wound Skin Appearance) Assessed -Color (Jada-wound Skin Appearance) Assessed, Hemosiderin Staining -Temperature (Jada-wound Skin No Abnormality Appearance) (Pt Warm) -Tenderness on Palpation (Jada-wound No Skin Appearance) -Ulcer Cleansing Soap and Water -Foul Odor after Cleansing No -Anesthetic Used 5% Lidocaine Gel #3 L [place] -Combined with other wound No -Current Size (cm) - Length 1.4 -Current Size (cm) - Width 0.8 -Current Size (cm) - Depth 0.1 -Total Square Cm 1.12 -Date of Last Picture (Recall this 11/02/21 field) -Photo Taken Yes -Epithelialization Small 1-33% -Tunneling No -Undermining/Tunneling No -Circular Undermining No -Exudate Amt Small -Exudate Type Serosanguineous -Wound Margin Distinct, Outline Attached -Granulation Amt Medium (34-66%) -Granulation Quality Red -Slough/Fibrin Yes -Necrosis Amt Medium (34-66%) -Necrotic Tissue Type Adherent Slough -Texture (Jada-wound Skin Appearance) Assessed, Scarring -Moisture (Jada-wound Skin Appearance) Assessed -Color (Jada-wound Skin Appearance) Assessed, Hemosiderin Staining -Temperature (Jada-wound Skin No Abnormality Appearance) (Pt Warm) -Tenderness on Palpation (Jada-wound No Skin Appearance) -Ulcer Cleansing Soap and Water -Foul Odor after Cleansing No -Anesthetic Used 5% Lidocaine Gel Lower Limb Edema Present Yes Left Calf (cm) 39.3 Left Ankle (cm) 22.2 WC - Nurse 2 - General Ulcer CM Notes Start: 11/02/21 08:18 Freq: Status: Active Protocol: Activity Type Activity Date Activity User E-Sign Co-Sign Detail Recorded Client Recorded Date Recorded By Document 11/02/21 08:35 MW [id number] 11/02/21 08:43 MW 11/02/21 08:35 Wound Center Nurse 2 #5- LLE CLUSTER -Time 08:37 -Correct Patient Yes -Correct Side, Site, Position Yes -Correct Procedure Yes -Procedure Performed Yes -Type of Procedure Debridement -Clinical Debridement Subcutaneous -Tissue Removed Subcutaneous -Post Debridement (cm) - Length 1.3 -Post Debridement (cm) - Width 2.0 -Post Debridement (cm) - Depth 0.2 -Total Square (Post) (cm) 2.60 -Area of Debridement (cm) - Length 1.3 -Area of Debridement (cm) - Width 2.0 -Total Square (Area) (cm) 2.60 -Tunneling No -Undermining/Tunneling No -Circular Undermining No -Wound/Ulcer Outcome Not Healed -Ulcer Cleansing Rinsed/ Irrigated with Saline -Foul Odor after Cleansing No -Bioengineered Tissue No -Bleeding Controlled with Pressure -Treatment Response Procedure Tolerated Well -Offloading No -Debridement - Subq, 1st 20sq cm Yes #4- L [place] SUPERIOR -Time 08:37 -Correct Patient Yes -Correct Side, Site, Position Yes -Correct Procedure Yes -Procedure Performed Yes -Type of Procedure Debridement -Clinical Debridement Subcutaneous -Tissue Removed Subcutaneous -Post Debridement (cm) - Length 1.5 -Post Debridement (cm) - Width 1.3 -Post Debridement (cm) - Depth 0.1 -Total Square (Post) (cm) 1.95 -Area of Debridement (cm) - Length 1.5 -Area of Debridement (cm) - Width 1.3 -Total Square (Area) (cm) 1.95 -Tunneling No -Undermining/Tunneling No -Circular Undermining No -Wound/Ulcer Outcome Not Healed -Ulcer Cleansing Rinsed/ Irrigated with Saline -Foul Odor after Cleansing No -Bioengineered Tissue No -Bleeding Controlled with Pressure -Treatment Response Procedure Tolerated Well -Offloading No -Debridement - Subq, 1st 20sq cm No #3 L [place] -Time 08:38 -Correct Patient Yes -Correct Side, Site, Position Yes -Correct Procedure Yes -Procedure Performed Yes -Type of Procedure Debridement -Clinical Debridement Subcutaneous -Tissue Removed Subcutaneous -Post Debridement (cm) - Length 1.9 -Post Debridement (cm) - Width 0.8 -Post Debridement (cm) - Depth 0.1 -Total Square (Post) (cm) 1.52 -Area of Debridement (cm) - Length 1.9 -Area of Debridement (cm) - Width 0.8 -Total Square (Area) (cm) 1.52 -Tunneling No -Undermining/Tunneling No -Circular Undermining No -Wound/Ulcer Outcome Not Healed -Ulcer Cleansing Rinsed/ Irrigated with Saline -Foul Odor after Cleansing No -Bioengineered Tissue No -Bleeding Controlled with Pressure -Treatment Response Procedure Tolerated Well -Offloading No -Debridement - Subq, 1st 20sq cm No Pain Scale: 0-10 Numeric Is Patient Pain Free? Yes WC - Nurse 3 - General Ulcer D/C NN Start: 11/02/21 08:18 Freq: Status: Active Protocol: Activity Type Activity Date Activity User E-Sign Co-Sign Detail Recorded Client Recorded Date Recorded By Document 11/02/21 08:46 [facility] [id number] 11/02/21 08:47 [facility] 11/02/21 08:46 Wound Care Nurse 3 #5- LLE CLUSTER -Ulcer Cleansing Rinsed/ Irrigated with Saline -Foul Odor after Cleansing No -Primary Dressing Applied Fibracol Plus 4x4,NonAdherent Contact Layer -Primary Dressing Covered/Secured with Dry Gauze & Roll Gauze, Secured with Tape -Fibracol Plus 4x4 1 #4- L [place] SUPERIOR -Ulcer Cleansing Rinsed/ Irrigated with Saline -Foul Odor after Cleansing No -Primary Dressing Applied Fibracol Plus 4x4,NonAdherent Contact Layer -Primary Dressing Covered/Secured with Dry Gauze & Roll Gauze, Secured with Tape -Fibracol Plus 4x4 0 #3 L [place] -Ulcer Cleansing Rinsed/ Irrigated with Saline -Foul Odor after Cleansing No -Primary Dressing Applied Fibracol Plus 4x4,NonAdherent Contact Layer -Primary Dressing Covered/Secured with Dry Gauze & Roll Gauze, Secured with Tape -Fibracol Plus 4x4 0 Left -Tubular Bandage Single Layer -Size of Tubigrip Used Size E -Size E ($) 1 Treatment Response Procedure Tolerated Well Pain Scale: 0-10 Numeric Is Patient Pain Free? Yes WC - Visit Discharge Discharge Condition Stable Ambulatory Status Ambulatory,Cane Transportation Private Auto Accompanied by Additional Wound Wound debrided: Left [place] Type of Debridement: Excisional debridement Anesthesia Used: 4% Lidocaine Solution Depth: Down to and including healthy tissue and in the subcutaneous layer Percentage of wound debrided: 100 Instrument Used: 3mm curette Tissue Removed: Slough and devitalized tissue Severity: Fat Layer Exposed Amount of bleeding with debridement: Mild Bleeding Controlled with: Pressure Patient tolerated procedure: Patient tolerated procedure well Additional Wound Wound debrided: Left lower extremity cluster Type of Debridement: Excisional debridement Anesthesia Used: 4% Lidocaine Solution Depth: Down to and including healthy tissue and in the subcutaneous layer Percentage of wound debrided: 100 Instrument Used: 3mm curette Tissue Removed: Slough and devitalized tissue Severity: Fat Layer Exposed Amount of bleeding with debridement: Mild Bleeding Controlled with: Pressure Patient tolerated procedure: Patient tolerated procedure well Assessment/Plan Assessment/Plan (1) Ulcer of left lower extremity with fat layer exposed: CODE(S): L97.922 - Non-pressure chronic ulcer of unspecified part of left lower leg with fat layer exposed (2) DM type 2 (diabetes mellitus, type 2): CODE(S): E11.9 - Type 2 diabetes mellitus without complications QUALIFIERS: 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 New left superior and inferior ulcers. Left [place] with some improvement. Continue Fibrocol daily with Adaptic over top to all ulcers. Single-layer Tubigrip for edema management. Optimal diabetes control recommended, most recent A1c was at 5.3. Vitamin C, D and zinc also discussed. Leg elevation and exercise as tolerated discussed. Increase protein intake. His questions were answered and he was advised to call with any further questions or concerns. Follow-up in 1 week. This note was generated with [employer] dictation software. It may contain incorrect words, spelling, and punctuation that were not noted in checking the note before signing.
[2021-11-09 09:10] VITALS: BP 128/71; PULSE 75; RESP 16; TEMP 36.3; BMI 33.2
--- NOTE | 2021-11-09 13:24 | PN.PCM_ITS ---
History of Present Illness Date of Service: 11/09/21 Chief Complaint: Left Leg Ulcer History of Wound: Mr. Turcios is a 71-year-old who was referred to the wound center by his primary care physician due to a left lower extremity ulcer. Said to have been noted by his few days ago. Patient is legally blind. They deny any known precipitating factor. No known injury. Since noting ulcer, he was seen by his primary care physician who did some labs and also started him on doxycycline which he is currently taking. His states that she has been cleaning it and doing some dressing changes at home as well. He did not report chills, fever or otherwise feeling of unwell. Most recent A1c was at 5.3. Progress of Wound: No new concerns at this time, improving ulcers. Objective Data Objective Data Vital Signs: Vital Signs Temp Pulse Resp BP 97.3 F L 75 16 128/71 H 11/09/21 09:10 11/09/21 09:10 11/09/21 09:10 11/09/21 09:10 Oxygen Delivery Method Room Air Weight: 266 lb Body Mass Index (BMI) 33.2 Charges/Coding Procedures Integumentary 111xxx-113xx: [id number] [place] subq tissue 20 sq cm/< Physical Exam Const alert, oriented x3 and no apparent distress General Appearance: cooperative, comfortable and well kempt HEENT normocephalic and head/scalp atraumatic Neck full ROM General: normal visual inspection Resp normal respiratory effort Effort and Inspection: able to speak in complete sentences Cardio regular rate, regular rhythm, S1 normal heart sound and S2 normal heart sound GI soft to palpation and non-tender Extremity General Extremity: edema Skin Wounds: wounds noted Neuro oriented x3, CN's II-XII intact bilaterally, moves all extremities and no focal motor deficits Psych mental status grossly normal Appearance: grossly normal Attitude: calm Activity / Motor Behavior: appropriate eye contact Debridement Note Debridement Note Wound debrided: Left [place] Type of Debridement: Excisional debridement Anesthesia Used: 4% Lidocaine Solution Depth: Down to and including healthy tissue and in the subcutaneous layer Percentage of wound debrided: 100 Instrument Used: 3mm curette Tissue Removed: Slough and devitalized tissue Severity: Fat Layer Exposed Amount of bleeding with debridement: Mild Bleeding Controlled with: Pressure Patient tolerated procedure: Patient tolerated procedure well Post-Debridement Measurements and Additional Note: Post-Debridement Measurements/Treatment - Nurse 1 - General Ulcer Assessment Start: 11/02/21 08:18 Freq: Status: Active Protocol: OLIVIA Activity Type Activity Date Activity User E-Sign Co-Sign Detail Recorded Client Recorded Date Recorded By Document 11/02/21 08:18 [facility] [id number] 11/02/21 08:27 [facility] Document 11/09/21 09:10 [facility] [id number] 11/09/21 09:19 [facility] 11/02/21 11/09/21 08:18 09:10 BRYANNA - Today's Visit Information Type of service Follow-up Visit Follow-up Visit (Physician/LICENSED PSYCHIATRIC TECHNICIAN (Physician/LICENSED PSYCHIATRIC TECHNICIAN ) ) Arrival Mode Ambulatory,Cane Wheelchair Transfer Assistance None Other Transfer Assist (Other) 1 assist/blind Accompanied by Patient Identification Verified (Name & Yes Yes ) Patient Requires Transmission-Based No Precautions Finger Stick Blood Sugar(mg/dl) (if 102 indicated): Blood Sugar Stated by Patient Height and Weight Body Mass Index (BMI) 33.2 33.2 BMI Classification Obese Obese Vital Signs Temperature (97.8 F-99.1 F) 97.1 F L 97.3 F L Temperature Source Temporal Temporal Pulse Rate (60-100) 95 75 Pulse Location Monitor Monitor Respiratory Rate (12-18) 16 16 Respiratory rate source Observation Observation Oxygen Delivery Method Room Air Room Air Blood Pressure (90/60-120/80) 122/72 H 128/71 H Blood Pressure Mean (mm Hg) 88 90 Source Monitor Monitor Position Sitting Sitting Blood Pressure Location Left Arm Left Arm History Since Last Visit- (Skip if this is Patient's initial visit) Have you changed medications since your No No last visit? Any new allergies or adverse reactions No No Had a fall/change in ADL's that may No No increase risk of falls Signs or symptoms of abuse and/or No No neglect since last visit Have you been in the hospital since your No No last visit? Has dressing in place as prescribed Yes Yes Has compression in place as prescribed Yes Yes Has offloadiing in place as prescribed N/A N/A Experienced any changes in pain level or No No management Left Footwear Diabetic Shoe Diabetic Shoe Right Footwear Diabetic Shoe Diabetic Shoe Pain Scale: 0-10 Numeric Is Patient Pain Free? Yes Yes - Nurse 1 - General Ulcer Measurement Start: 11/02/21 08:18 Freq: Status: Active Protocol: Activity Type Activity Date Activity User E-Sign Co-Sign Detail Recorded Client Recorded Date Recorded By Document 11/02/21 08:18 [facility] [id number] 11/02/21 08:27 BM Document 11/09/21 09:10 [facility] [id number] 11/09/21 09:19 BMF 11/02/21 11/09/21 08:18 09:10 Wound Center Nurse 1 #5- LLE CLUSTER -Combined with other wound No No -Current Size (cm) - Length 0.8 0.1 -Current Size (cm) - Width 1.3 0.1 -Current Size (cm) - Depth 0.1 0.1 -Total Square Cm 1.04 0.01 -Date of Last Picture (Recall this 11/02/21 11/09/21 field) -Photo Taken Yes Yes -Epithelialization None Present Large 67-100% -Tunneling No -Undermining/Tunneling No -Circular Undermining No -Exudate Amt Small None Present -Exudate Type Serosanguineous -Wound Margin Distinct, Outline Attached -Granulation Amt Large (67-100%) -Granulation Quality Portal -Slough/Fibrin Yes -Necrosis Amt Small (1-33%) -Necrotic Tissue Type Adherent Slough -Texture (Jada-wound Skin Appearance) Assessed, Assessed, Scarring Scarring -Moisture (Jada-wound Skin Appearance) Assessed,Dry/ Assessed,Dry/ Scaly Scaly -Color (Jada-wound Skin Appearance) Assessed Assessed -Temperature (Jada-wound Skin No Abnormality No Abnormality Appearance) (Pt Warm) (Pt Warm) -Tenderness on Palpation (Jada-wound No No Skin Appearance) -Ulcer Cleansing Soap and Water Soap and Water -Foul Odor after Cleansing No No -Anesthetic Used 5% Lidocaine 5% Lidocaine Gel Gel #4- L [place] SUPERIOR -Combined with other wound No No -Current Size (cm) - Length 1.5 0.7 -Current Size (cm) - Width 1.4 0.8 -Current Size (cm) - Depth 0.1 0.1 -Total Square Cm 2.10 0.56 -Date of Last Picture (Recall this 11/02/21 11/09/21 field) -Photo Taken Yes Yes -Epithelialization None Present Small 1-33% -Tunneling No No -Undermining/Tunneling No No -Circular Undermining No No -Exudate Amt Small Small -Exudate Type Serosanguineous Serosanguineous -Wound Margin Distinct, Distinct, Outline Outline Attached Attached -Granulation Amt Medium (34-66%) Medium (34-66%) -Granulation Quality Red Red -Slough/Fibrin Yes Yes -Necrosis Amt Medium (34-66%) Small (1-33%) -Necrotic Tissue Type Adherent Slough Adherent Slough -Texture (Jada-wound Skin Appearance) Assessed, Assessed, Scarring Scarring -Moisture (Jada-wound Skin Appearance) Assessed Assessed -Color (Jada-wound Skin Appearance) Assessed, Assessed Hemosiderin Staining -Temperature (Jada-wound Skin No Abnormality No Abnormality Appearance) (Pt Warm) (Pt Warm) -Tenderness on Palpation (Jada-wound No No Skin Appearance) -Ulcer Cleansing Soap and Water Soap and Water -Foul Odor after Cleansing No No -Anesthetic Used 5% Lidocaine 5% Lidocaine Gel Gel #3 L [place] -Combined with other wound No No -Current Size (cm) - Length 1.4 1.7 -Current Size (cm) - Width 0.8 0.9 -Current Size (cm) - Depth 0.1 0.2 -Total Square Cm 1.12 1.53 -Date of Last Picture (Recall this 11/02/21 11/09/21 field) -Photo Taken Yes Yes -Epithelialization Small 1-33% Small 1-33% -Tunneling No No -Undermining/Tunneling No No -Circular Undermining No No -Exudate Amt Small Small -Exudate Type Serosanguineous Serosanguineous -Wound Margin Distinct, Distinct, Outline Outline Attached Attached -Granulation Amt Medium (34-66%) Medium (34-66%) -Granulation Quality Red Red -Slough/Fibrin Yes Yes -Necrosis Amt Medium (34-66%) Medium (34-66%) -Necrotic Tissue Type Adherent Slough Adherent Slough -Texture (Jada-wound Skin Appearance) Assessed, Assessed, Scarring Scarring -Moisture (Jada-wound Skin Appearance) Assessed Assessed -Color (Jada-wound Skin Appearance) Assessed, Assessed Hemosiderin Staining -Temperature (Jada-wound Skin No Abnormality No Abnormality Appearance) (Pt Warm) (Pt Warm) -Tenderness on Palpation (Jada-wound No No Skin Appearance) -Ulcer Cleansing Soap and Water Soap and Water -Foul Odor after Cleansing No No -Anesthetic Used 5% Lidocaine 5% Lidocaine Gel Gel Lower Limb Edema Present Yes Yes Left Calf (cm) 39.3 39.2 Left Ankle (cm) 22.2 22 WC - Nurse 2 - General Ulcer CM Notes Start: 11/02/21 08:18 Freq: Status: Active Protocol: Activity Type Activity Date Activity User E-Sign Co-Sign Detail Recorded Client Recorded Date Recorded By Document 11/02/21 08:35 MW [id number] 11/02/21 08:43 MW Document 11/09/21 09:41 MW [id number] 11/09/21 09:46 MW 11/02/21 11/09/21 08:35 09:41 Wound Center Nurse 2 #5- LLE CLUSTER -Time 08:37 09:41 -Correct Patient Yes Yes -Correct Side, Site, Position Yes Yes -Correct Procedure Yes Yes -Procedure Performed Yes No -Type of Procedure Debridement -Clinical Debridement Subcutaneous -Tissue Removed Subcutaneous -Post Debridement (cm) - Length 1.3 0.1 -Post Debridement (cm) - Width 2.0 0.1 -Post Debridement (cm) - Depth 0.2 0.1 -Total Square (Post) (cm) 2.60 0.01 -Area of Debridement (cm) - Length 1.3 -Area of Debridement (cm) - Width 2.0 -Total Square (Area) (cm) 2.60 -Tunneling No No -Undermining/Tunneling No No -Circular Undermining No No -Wound/Ulcer Outcome Not Healed Not Healed -Ulcer Cleansing Rinsed/ Rinsed/ Irrigated with Irrigated with Saline Saline -Foul Odor after Cleansing No No -Bioengineered Tissue No No -Bleeding Controlled with Pressure NA -Treatment Response Procedure Tolerated Well -Offloading No No -Debridement - Subq, 1st 20sq cm Yes #4- L [place]PERIOR -Time 08:37 09:42 -Correct Patient Yes Yes -Correct Side, Site, Position Yes Yes -Correct Procedure Yes Yes -Procedure Performed Yes Yes -Type of Procedure Debridement Debridement -Clinical Debridement Subcutaneous Subcutaneous -Tissue Removed Subcutaneous Subcutaneous -Post Debridement (cm) - Length 1.5 0.9 -Post Debridement (cm) - Width 1.3 0.9 -Post Debridement (cm) - Depth 0.1 0.1 -Total Square (Post) (cm) 1.95 0.81 -Area of Debridement (cm) - Length 1.5 0.9 -Area of Debridement (cm) - Width 1.3 0.9 -Total Square (Area) (cm) 1.95 0.81 -Tunneling No No -Undermining/Tunneling No No -Circular Undermining No No -Wound/Ulcer Outcome Not Healed Not Healed -Ulcer Cleansing Rinsed/ Rinsed/ Irrigated with Irrigated with Saline Saline -Foul Odor after Cleansing No No -Bioengineered Tissue No No -Bleeding Controlled with Pressure Pressure -Treatment Response Procedure Procedure Tolerated Well Tolerated Well -Offloading No No -Debridement - Subq, 1st 20sq cm No No #3 L [place] -Time 08:38 09:42 -Correct Patient Yes Yes -Correct Side, Site, Position Yes Yes -Correct Procedure Yes Yes -Procedure Performed Yes Yes -Type of Procedure Debridement Debridement -Clinical Debridement Subcutaneous Subcutaneous -Tissue Removed Subcutaneous Subcutaneous -Post Debridement (cm) - Length 1.9 1.5 -Post Debridement (cm) - Width 0.8 0.5 -Post Debridement (cm) - Depth 0.1 0.1 -Total Square (Post) (cm) 1.52 0.75 -Area of Debridement (cm) - Length 1.9 1.5 -Area of Debridement (cm) - Width 0.8 0.5 -Total Square (Area) (cm) 1.52 0.75 -Tunneling No No -Undermining/Tunneling No No -Circular Undermining No No -Wound/Ulcer Outcome Not Healed Not Healed -Ulcer Cleansing Rinsed/ Rinsed/ Irrigated with Irrigated with Saline Saline -Foul Odor after Cleansing No No -Bioengineered Tissue No No -Bleeding Controlled with Pressure Pressure -Treatment Response Procedure Procedure Tolerated Well Tolerated Well -Offloading No No -Debridement - Subq, 1st 20sq cm No No Pain Scale: 0-10 Numeric Is Patient Pain Free? Yes Yes WC - Nurse 3 - General Ulcer D/C NN Start: 11/02/21 08:18 Freq: Status: Active Protocol: Activity Type Activity Date Activity User E-Sign Co-Sign Detail Recorded Client Recorded Date Recorded By Document 11/02/21 08:46 [facility] [id number] 11/02/21 08:47 [facility] Document 11/09/21 09:58 [facility] [id number] 11/09/21 10:00 [facility] 11/02/21 11/09/21 08:46 09:58 Wound Care Nurse 3 #5- LLE CLUSTER -Ulcer Cleansing Rinsed/ Rinsed/ Irrigated with Irrigated with Saline Saline -Foul Odor after Cleansing No No -Primary Dressing Applied Fibracol Plus NonAdherent 4x4,NonAdherent Contact Layer Contact Layer -Primary Dressing Covered/Secured with Dry Gauze & Dry Gauze & Roll Gauze, Roll Gauze, Secured with Secured with Tape Tape -Fibracol Plus 4x4 1 #4- L [place]PER[place] -Ulcer Cleansing Rinsed/ Rinsed/ Irrigated with Irrigated with Saline Saline -Foul Odor after Cleansing No No -Primary Dressing Applied Fibracol Plus Fibracol Plus 4x4,NonAdherent 4x4 Contact Layer -Primary Dressing Covered/Secured with Dry Gauze & Dry Gauze & Roll Gauze, Roll Gauze, Secured with Secured with Tape Tape -Fibracol Plus 4x4 0 1 #3 L [place] -Ulcer Cleansing Rinsed/ Rinsed/ Irrigated with Irrigated with Saline Saline -Foul Odor after Cleansing No No -Primary Dressing Applied Fibracol Plus Fibracol Plus 4x4,NonAdherent 4x4,NonAdherent Contact Layer Contact Layer -Primary Dressing Covered/Secured with Dry Gauze & Dry Gauze & Roll Gauze, Roll Gauze, Secured with Secured with Tape Tape -Fibracol Plus 4x4 0 0 Left -Tubular Bandage Single Layer -Size of Tubigrip Used Size E -Size E ($) 1 -Other applied pts own single layer tubi Treatment Response Procedure Procedure Tolerated Well Tolerated Well Pain Scale: 0-10 Numeric Is Patient Pain Free? Yes Yes WC - Visit Discharge Discharge Condition Stable Stable Ambulatory Status Ambulatory,Cane Wheelchair Transportation Private Auto Private Auto Accompanied by Additional Wound Wound debrided: Left lower extremity upper Type of Debridement: Excisional debridement Anesthesia Used: 4% Lidocaine Solution Depth: Down to and including healthy tissue and in the subcutaneous layer Percentage of wound debrided: 100 Instrument Used: 3mm curette Severity: Fat Layer Exposed Amount of bleeding with debridement: Mild Bleeding Controlled with: Pressure Patient tolerated procedure: Patient tolerated procedure well Assessment/Plan Assessment/Plan (1) Ulcer of left lower extremity with fat layer exposed: CODE(S): L97.922 - Non-pressure chronic ulcer of unspecified part of left lower leg with fat layer exposed (2) DM type 2 (diabetes mellitus, type 2): CODE(S): E11.9 - Type 2 diabetes mellitus without complications QUALIFIERS: Diabetes mellitus retirement insulin use: with retirement use Diabetes mellitus complication status: with other specified complication Qualified Code(s): E11.69 - Type 2 diabetes mellitus with other specified complication; Z79.4 - snf (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 Improvement noted. Left inferior leg with minimal area left. Continue Fibrocol daily with Adaptic over top to all ulcers. Single-layer Tubigrip for edema management. Optimal diabetes control recommended, most recent A1c was at 5.3. Vitamin C, D and zinc also discussed. Leg elevation and exercise as tolerated discussed. Increase protein intake. His questions were answered and he was advised to call with any further questions or concerns. Follow-up in 1 week. This note was generated with [employer] software. It may contain incorrect words, spelling, and punctuation that were not noted in checking the note before signing.
[2021-11-16 08:18] VITALS: BP 117/61; PULSE 89; TEMP 35.7; BMI 33.2
--- NOTE | 2021-11-16 09:03 | PCM.WC.PN ---
History of Present Illness Date of Service: 11/16/21 Chief Complaint: Left Leg Ulcer History of Wound: Mr. Turcios is a 71-year-old who was referred to the wound center by his primary care physician due to a left lower extremity ulcer. Said to have been noted by his few days ago. Patient is legally blind. They deny any known precipitating factor. No known injury. Since noting ulcer, he was seen by his primary care physician who did some labs and also started him on doxycycline which he is currently taking. His states that she has been cleaning it and doing some dressing changes at home as well. He did not report chills, fever or otherwise feeling of unwell. Most recent A1c was at 5.3. Progress of Wound: Improving ulcers. No new concerns at this time. Subjective Subjective No new concerns. Objective Data Objective Data Vital Signs: Vital Signs Temp Pulse Resp BP 96.2 F L 89 16 117/61 11/16/21 08:18 11/16/21 08:18 11/09/21 09:10 11/16/21 08:18 Oxygen Delivery Method Room Air Weight: 266 lb Body Mass Index (BMI) 33.2 Charges/Coding Procedures Integumentary 111xxx-113xx: [id number] [place] subq tissue 20 sq cm/< Physical Exam Const alert, oriented x3 and no apparent distress General Appearance: cooperative, comfortable and well kempt HEENT normocephalic and head/scalp atraumatic Neck full ROM General: normal visual inspection Resp normal respiratory effort Effort and Inspection: able to speak in complete sentences GI soft to palpation and non-tender Extremity General Extremity: edema Skin Wounds: wounds noted Neuro oriented x3, CN's II-XII intact bilaterally, moves all extremities and no focal motor deficits Psych mental status grossly normal Appearance: grossly normal Attitude: calm Activity / Motor Behavior: appropriate eye contact Debridement Note Debridement Note Wound debrided: Left [place] Type of Debridement: Excisional debridement Anesthesia Used: 4% Lidocaine Solution Depth: Down to and including healthy tissue and in the subcutaneous layer Percentage of wound debrided: 100 Instrument Used: 3mm curette Tissue Removed: Slough and devitalized tissue Severity: Fat Layer Exposed Amount of bleeding with debridement: Mild Bleeding Controlled with: Pressure Patient tolerated procedure: Patient tolerated procedure well Post-Debridement Measurements and Additional Note: Post-Debridement Measurements/Treatment WC - Nurse 1 - General Ulcer Assessment Start: 11/02/21 08:18 Freq: Status: Active Protocol: [email or web address].LOWEXT Activity Type Activity Date Activity User E-sign Co-sign Detail Recorded Client Recorded Date Recorded By Document 11/02/21 08:[address] [facility] [id number] 11/02/21 08:27 BM Document 11/09/21 09:[address] [facility] [id number] 11/09/21 09:[address] [facility] Document 11/16/21 08:[address] [facility] [id number] 11/16/21 08:24 BMF 11/02/21 11/09/21 11/16/21 08:18 09:10 08:18 WC - Today's Visit Information Type of service Follow-up Visit Follow-up Visit Follow-up Visit (Physician/RN DOCUMENTATION SPECIALIST (Physician/RN DOCUMENTATION SPECIALIST (Physician/RN DOCUMENTATION SPECIALIST ) ) ) Arrival Mode Ambulatory,Cane Wheelchair Ambulatory,Cane Transfer Assistance None Other Transfer Assist (Other) 1 assist/blind Accompanied by Patient Identification Verified (Name & Yes Yes Yes ) Patient Requires Transmission-Based No No Precautions Safety Precautions NA Finger Stick Blood Sugar(mg/dl) (if 102 indicated): Blood Sugar Stated by Patient Height and Weight Body Mass Index (BMI) 33.2 33.2 33.2 BMI Classification Obese Obese Obese Vital Signs Temperature (97.8 F-99.1 F) 97.1 F L 97.3 F L 96.2 F L Temperature Source Temporal Temporal Temporal Pulse Rate (60-100) 95 75 89 Pulse Location Monitor Monitor Monitor Respiratory Rate (12-18) 16 16 Respiratory rate source Observation Observation Oxygen Delivery Method Room Air Room Air Blood Pressure (90/60-120/80) 122/72 H 128/71 H 117/61 Blood Pressure Mean (mm Hg) 88 90 79 Source Monitor Monitor Monitor Position Sitting Sitting Blood Pressure Location Left Arm Left Arm History Since Last Visit- (Skip if this is Patient's initial visit) Have you changed medications since your No No No last visit? Any new allergies or adverse reactions No No No Had a fall/change in ADL's that may No No No increase risk of falls Signs or symptoms of abuse and/or No No No neglect since last visit Have you been in the hospital since your No No No last visit? Has dressing in place as prescribed Yes Yes Yes Has compression in place as prescribed Yes Yes No Has offloadiing in place as prescribed N/A N/A N/A Experienced any changes in pain level or No No No management Left Footwear Diabetic Shoe Diabetic Shoe Regular Shoe Right Footwear Diabetic Shoe Diabetic Shoe Regular Shoe Pain Scale: 0-10 Numeric Is Patient Pain Free? Yes Yes Yes WC - Nurse 1 - General Ulcer Measurement Start: 11/02/21 08:18 Freq: Status: Active Protocol: Activity Type Activity Date Activity User E-sign Co-sign Detail Recorded Client Recorded Date Recorded By Document 11/02/21 08:[address] [facility] [id number] 11/02/21 08:[address] [facility] Document 11/09/21 09:10 BM [id number] 11/09/21 09:[address] [facility] Document 11/16/21 08:[address] [facility] [id number] 11/16/21 08:[address] [facility] 11/02/21 11/09/21 11/16/21 08:18 09:10 08:18 Wound Center Nurse 1 #5- LLE CLUSTER -Combined with other wound No No No -Current Size (cm) - Length 0.8 0.1 0.9 -Current Size (cm) - Width 1.3 0.1 0.5 -Current Size (cm) - Depth 0.1 0.1 0.1 -Total Square Cm 1.04 0.01 0.45 -Date of Last Picture (Recall this 11/02/21 11/09/21 11/16/21 field) -Photo Taken Yes Yes Yes -Epithelialization None Present Large 67-100% -Tunneling No -Undermining/Tunneling No -Circular Undermining No -Exudate Amt Small None Present -Exudate Type Serosanguineous -Wound Margin Distinct, Outline Attached -Granulation Amt Large (67-100%) -Granulation Quality [place] -Slough/Fibrin Yes -Necrosis Amt Small (1-33%) -Necrotic Tissue Type Adherent Slough -Texture (Jada-wound Skin Appearance) Assessed, Assessed, Scarring Scarring -Moisture (Jada-wound Skin Appearance) Assessed,Dry/ Assessed,Dry/ Scaly Scaly -Color (Jada-wound Skin Appearance) Assessed Assessed -Temperature (Jada-wound Skin No Abnormality No Abnormality Appearance) (Pt Warm) (Pt Warm) -Tenderness on Palpation (Jada-wound No No Skin Appearance) -Ulcer Cleansing Soap and Water Soap and Water -Foul Odor after Cleansing No No -Anesthetic Used 5% Lidocaine 5% Lidocaine Gel Gel #4- L [place] SUPERIOR -Combined with other wound No No No -Current Size (cm) - Length 1.5 0.7 0.1 -Current Size (cm) - Width 1.4 0.8 0.1 -Current Size (cm) - Depth 0.1 0.1 0.1 -Total Square Cm 2.10 0.56 0.01 -Date of Last Picture (Recall this 11/02/21 11/09/21 field) -Photo Taken Yes Yes No -Epithelialization None Present Small 1-33% None Present -Tunneling No No No -Undermining/Tunneling No No No -Circular Undermining No No No -Exudate Amt Small Small None Present -Exudate Type Serosanguineous Serosanguineous -Wound Margin Distinct, Distinct, Outline Outline Attached Attached -Granulation Amt Medium (34-66%) Medium (34-66%) None Present (0 %) -Granulation Quality [place] N/A -Slough/Fibrin Yes Yes No -Necrosis Amt Medium (34-66%) Small (1-33%) -Necrotic Tissue Type Adherent Slough Adherent Slough -Structure Exposed N/A -Texture (Jada-wound Skin Appearance) Assessed, Assessed, No Abnormality, Scarring Scarring Assessed -Moisture (Jada-wound Skin Appearance) Assessed Assessed No Abnormality, Assessed -Color (Jada-wound Skin Appearance) Assessed, Assessed No Abnormality, Hemosiderin Assessed Staining -Temperature (Jada-wound Skin No Abnormality No Abnormality No Abnormality Appearance) (Pt Warm) (Pt Warm) (Pt Warm) -Tenderness on Palpation (Jada-wound No No No Skin Appearance) -Ulcer Cleansing Soap and Water Soap and Water Rinsed/ Irrigated with Saline -Foul Odor after Cleansing No No No -Anesthetic Used 5% Lidocaine 5% Lidocaine 5% Lidocaine Gel Gel Gel #3 L [place] -Combined with other wound No No No -Current Size (cm) - Length 1.4 1.7 0.5 -Current Size (cm) - Width 0.8 0.9 0.4 -Current Size (cm) - Depth 0.1 0.2 0.1 -Total Square Cm 1.12 1.53 0.20 -Date of Last Picture (Recall this 11/02/21 11/09/21 11/16/21 field) -Photo Taken Yes Yes Yes -Epithelialization Small 1-33% Small 1-33% None Present -Tunneling No No No -Undermining/Tunneling No No No -Circular Undermining No No No -Change in Wound Grade/Stage No -Exudate Amt Small Small None Present -Exudate Type Serosanguineous Serosanguineous -Wound Margin Distinct, Distinct, Flat & Intact Outline Outline Attached Attached -Granulation Amt Medium (34-66%) Medium (34-66%) None Present (0 %) -Granulation Quality Red Red N/A -Slough/Fibrin Yes Yes No -Necrosis Amt Medium (34-66%) Medium (34-66%) None Present (0 %) -Necrotic Tissue Type Adherent Slough Adherent Slough -Structure Exposed N/A -Texture (Jada-wound Skin Appearance) Assessed, Assessed, No Abnormality, Scarring Scarring Assessed -Moisture (Jada-wound Skin Appearance) Assessed Assessed No Abnormality, Assessed -Color (Jada-wound Skin Appearance) Assessed, Assessed No Abnormality, Hemosiderin Assessed Staining -Temperature (Jada-wound Skin No Abnormality No Abnormality No Abnormality Appearance) (Pt Warm) (Pt Warm) (Pt Warm) -Tenderness on Palpation (Jada-wound No No No Skin Appearance) -Ulcer Cleansing Soap and Water Soap and Water Rinsed/ Irrigated with Saline -Foul Odor after Cleansing No No No -Anesthetic Used 5% Lidocaine 5% Lidocaine 5% Lidocaine Gel Gel Gel -Wound Comment(s) scabbed Lower Limb Edema Present Yes Yes Left Calf (cm) 39.3 39.2 27.6 Left Ankle (cm) 22.2 22 21.8 WC - Nurse 2 - General Ulcer CM Notes Start: 11/02/21 08:18 Freq: Status: Active Protocol: Activity Type Activity Date Activity User E-sign Co-sign Detail Recorded Client Recorded Date Recorded By Document 11/02/21 08:35 MW [id number] 11/02/21 08:43 MW Document 11/09/21 09:41 MW [id number] 11/09/21 09:46 MW Document 11/16/21 08:41 MW [id number] 11/16/21 08:47 MW 11/02/21 11/09/21 11/16/21 08:35 09:41 08:41 Wound Center Nurse 2 #5- LLE CLUSTER -Time 08:37 09:41 08:41 -Correct Patient Yes Yes Yes -Correct Side, Site, Position Yes Yes Yes -Correct Procedure Yes Yes Yes -Procedure Performed Yes No No -Type of Procedure Debridement -Clinical Debridement Subcutaneous -Tissue Removed Subcutaneous -Post Debridement (cm) - Length 1.3 0.1 0 -Post Debridement (cm) - Width 2.0 0.1 0 -Post Debridement (cm) - Depth 0.2 0.1 0 -Total Square (Post) (cm) 2.60 0.01 0 -Area of Debridement (cm) - Length 1.3 -Area of Debridement (cm) - Width 2.0 -Total Square (Area) (cm) 2.60 -Tunneling No No No -Undermining/Tunneling No No No -Circular Undermining No No No -Wound/Ulcer Outcome Not Healed Not Healed Healed- Epithelialized -Ulcer Cleansing Rinsed/ Rinsed/ Irrigated with Irrigated with Saline Saline -Foul Odor after Cleansing No No -Bioengineered Tissue No No -Bleeding Controlled with Pressure NA -Treatment Response Procedure Tolerated Well -Offloading No No -Debridement - Subq, 1st 20sq cm Yes #4- L [place] SUPERIOR -Time 08:37 09:42 08:42 -Correct Patient Yes Yes Yes -Correct Side, Site, Position Yes Yes Yes -Correct Procedure Yes Yes Yes -Procedure Performed Yes Yes Yes -Type of Procedure Debridement Debridement Debridement -Clinical Debridement Subcutaneous Subcutaneous Subcutaneous -Tissue Removed Subcutaneous Subcutaneous Subcutaneous -Post Debridement (cm) - Length 1.5 0.9 0.4 -Post Debridement (cm) - Width 1.3 0.9 0.4 -Post Debridement (cm) - Depth 0.1 0.1 0.1 -Total Square (Post) (cm) 1.95 0.81 0.16 -Area of Debridement (cm) - Length 1.5 0.9 0.4 -Area of Debridement (cm) - Width 1.3 0.9 0.4 -Total Square (Area) (cm) 1.95 0.81 0.16 -Tunneling No No No -Undermining/Tunneling No No No -Circular Undermining No No No -Wound/Ulcer Outcome Not Healed Not Healed Not Healed -Ulcer Cleansing Rinsed/ Rinsed/ Rinsed/ Irrigated with Irrigated with Irrigated with Saline Saline Saline -Foul Odor after Cleansing No No No -Bioengineered Tissue No No No -Bleeding Controlled with Pressure Pressure Pressure -Treatment Response Procedure Procedure Procedure Tolerated Well Tolerated Well Tolerated Well -Offloading No No No -Debridement - Subq, 1st 20sq cm No No Yes #3 L [place] -Time 08:38 09:42 08:42 -Correct Patient Yes Yes Yes -Correct Side, Site, Position Yes Yes Yes -Correct Procedure Yes Yes Yes -Procedure Performed Yes Yes Yes -Type of Procedure Debridement Debridement Debridement -Clinical Debridement Subcutaneous Subcutaneous Subcutaneous -Tissue Removed Subcutaneous Subcutaneous Subcutaneous -Post Debridement (cm) - Length 1.9 1.5 0.7 -Post Debridement (cm) - Width 0.8 0.5 0.2 -Post Debridement (cm) - Depth 0.1 0.1 0.1 -Total Square (Post) (cm) 1.52 0.75 0.14 -Area of Debridement (cm) - Length 1.9 1.5 0.7 -Area of Debridement (cm) - Width 0.8 0.5 0.2 -Total Square (Area) (cm) 1.52 0.75 0.14 -Tunneling No No No -Undermining/Tunneling No No No -Circular Undermining No No No -Wound/Ulcer Outcome Not Healed Not Healed Not Healed -Ulcer Cleansing Rinsed/ Rinsed/ Rinsed/ Irrigated with Irrigated with Irrigated with Saline Saline Saline -Foul Odor after Cleansing No No No -Bioengineered Tissue No No No -Bleeding Controlled with Pressure Pressure Pressure -Treatment Response Procedure Procedure Procedure Tolerated Well Tolerated Well Tolerated Well -Offloading No No No -Debridement - Subq, 1st 20sq cm No No No Pain Scale: 0-10 Numeric Is Patient Pain Free? Yes Yes Yes - Nurse 3 - General Ulcer D/C NN Start: 11/02/21 08:18 Freq: Status: Active Protocol: Activity Type Activity Date Activity User E-sign Co-sign Detail Recorded Client Recorded Date Recorded By Document 11/02/21 08:[address] [facility] [id number] 11/02/21 08:[address] [facility] Document 11/09/21 09:[address] [facility] [id number] 11/09/21 10:[address] [facility] Document 11/16/21 08:[address] [facility] [id number] 11/16/21 08:[address] [facility] 11/02/21 11/09/21 11/16/21 08:46 09:58 08:50 Wound Care Nurse 3 #5- LLE CLUSTER -Ulcer Cleansing Rinsed/ Rinsed/ Irrigated with Irrigated with Saline Saline -Foul Odor after Cleansing No No -Primary Dressing Applied Fibracol Plus NonAdherent 4x4,NonAdherent Contact Layer Contact Layer -Primary Dressing Covered/Secured with Dry Gauze & Dry Gauze & Roll Gauze, Roll Gauze, Secured with Secured with Tape Tape -Fibracol Plus 4x4 1 #4- L [place] SUPERIOR -Ulcer Cleansing Rinsed/ Rinsed/ Rinsed/ Irrigated with Irrigated with Irrigated with Saline Saline Saline -Foul Odor after Cleansing No No No -Primary Dressing Applied Fibracol Plus Fibracol Plus Fibracol Plus 4x4,NonAdherent 4x4 4x4,NonAdherent Contact Layer Contact Layer -Primary Dressing Covered/Secured with Dry Gauze & Dry Gauze & Dry Gauze & Roll Gauze, Roll Gauze, Roll Gauze, Secured with Secured with Secured with Tape Tape Tape -Other Covering drsg per ak time lock expert -Fibracol Plus 4x4 0 1 1 #3 L [place] -Ulcer Cleansing Rinsed/ Rinsed/ Rinsed/ Irrigated with Irrigated with Irrigated with Saline Saline Saline -Foul Odor after Cleansing No No No -Primary Dressing Applied Fibracol Plus Fibracol Plus Fibracol Plus 4x4,NonAdherent 4x4,NonAdherent 4x4,NonAdherent Contact Layer Contact Layer Contact Layer -Primary Dressing Covered/Secured with Dry Gauze & Dry Gauze & Dry Gauze & Roll Gauze, Roll Gauze, Roll Gauze, Secured with Secured with Secured with Tape Tape Tape -Other Covering drsg per ak time lock expert -Fibracol Plus 4x4 0 0 1 Left -Tubular Bandage Single Layer Single Layer -Size of Tubigrip Used Size E Size E -Size E ($) 1 1 -Other applied pts own single layer tubi Treatment Response Procedure Procedure Procedure Tolerated Well Tolerated Well Tolerated Well Pain Scale: 0-10 Numeric Is Patient Pain Free? Yes Yes Yes WC - Visit Discharge Discharge Condition Stable Stable Stable Ambulatory Status Ambulatory,Cane Wheelchair Wheelchair Transportation Private Auto Private Auto Private Auto Accompanied by Additional Wound Wound debrided: Left lower extremity (superior) Type of Debridement: Excisional debridement Anesthesia Used: 4% Lidocaine Solution Depth: Down to and including healthy tissue and in the subcutaneous layer Percentage of wound debrided: 100 Instrument Used: 3mm curette Tissue Removed: Slough and devitalized tissue Severity: Fat Layer Exposed Amount of bleeding with debridement: Mild Bleeding Controlled with: Pressure Patient tolerated procedure: Patient tolerated procedure well Assessment/Plan Assessment/Plan (1) Ulcer of left lower extremity with fat layer exposed: CODE(S): L97.922 - Non-pressure chronic ulcer of unspecified part of left lower leg with fat layer exposed (2) DM type 2 (diabetes mellitus, type 2): CODE(S): E11.9 - Type 2 diabetes mellitus without complications QUALIFIERS: Diabetes mellitus long distance operator insulin use: with long distance operator use Diabetes mellitus complication status: with other specified complication Qualified Code(s): E11.69 - Type 2 diabetes mellitus with other specified complication; Z79.4 - long term care pharmacist (current) use of insulin (3) Venous insufficiency of both lower extremities: CODE(S): I87.2 - Venous insufficiency (chronic) (peripheral) PLAN: Plan Debridement done as documented above, procedure was well-tolerated. Improvement noted. Left inferior leg healed. Continue Fibrocol daily with Adaptic over top to all ulcers. Single-layer Tubigrip for edema management. Optimal diabetes control recommended, most recent A1c was at 5.3. Vitamin C, D and zinc also discussed. Leg elevation and exercise as tolerated discussed. Increase protein intake. His questions were answered and he was advised to call with any further questions or concerns. Follow-up in 1 week. This note was generated with [employer] dictation software. It may contain incorrect words, spelling, and punctuation that were not noted in checking the note before signing.
[2021-11-23 10:28] VITALS: BP 102/57; PULSE 98; RESP 20; TEMP 36.8; BMI 33.2
--- NOTE | 2021-11-23 12:56 | PN.PCM_ITS ---
History of Present Illness Date of Service: 11/23/21 Chief Complaint: Left Leg Ulcer History of Wound: Mr. Turcios is a 71-year-old who was referred to the wound center by his primary care physician due to a left lower extremity ulcer. Said to have been noted by his few days ago. Patient is legally blind. They deny any known precipitating factor. No known injury. Since noting ulcer, he was seen by his primary care physician who did some labs and also started him on doxycycline which he is currently taking. His states that she has been cleaning it and doing some dressing changes at home as well. He did not report chills, fever or otherwise feeling of unwell. Most recent A1c was at 5.3. Progress of Wound: Healed. No new concerns at this time. Objective Data Objective Data Vital Signs: Vital Signs Temp Pulse Resp BP 98.3 F 98 20 H 102/57 L 11/23/21 10:28 11/23/21 10:28 11/23/21 10:28 11/23/21 10:28 Oxygen Delivery Method Room Air Weight: 266 lb Body Mass Index (BMI) 33.2 Charges/Coding Visit Charges Office Visits / Consults: 97837 OV L3 Est Physical Exam Const alert, oriented x3 and no apparent distress General Appearance: cooperative, comfortable and well kempt HEENT normocephalic and head/scalp atraumatic Neck full ROM General: normal visual inspection Resp normal respiratory effort Effort and Inspection: able to speak in complete sentences GI soft to palpation and non-tender Extremity General Extremity: edema Skin Wounds: wounds noted Neuro oriented x3, CN's II-XII intact bilaterally, moves all extremities and no focal motor deficits Psych mental status grossly normal Appearance: grossly normal Attitude: calm Activity / Motor Behavior: appropriate eye contact Debridement Note Debridement Note Post-Debridement Measurements and Additional Note: Post-Debridement Measurements/Treatment WC - Nurse 1 - General Ulcer Assessment Start: 11/02/21 08:18 Freq: Status: Active Protocol: OLIVIA Activity Type Activity Date Activity User E-sign Co-sign Detail Recorded Client Recorded Date Recorded By Document 11/02/21 08:18 [facility] [id number] 11/02/21 08:27 [facility] Document 11/09/21 09:10 [facility] [id number] 11/09/21 09:19 BM Document 11/16/21 08:18 BMF [id number] 11/16/21 08:24 BM Document 11/23/21 10:28 DL [id number] 11/23/21 10:56 DL 11/02/21 11/09/21 11/16/21 08:18 09:10 08:18 WC - Today's Visit Information Type of service Follow-up Visit Follow-up Visit Follow-up Visit (Physician/PHARMACY COORDINATOR (Physician/PHARMACY COORDINATOR (Physician/PHARMACY COORDINATOR ) ) ) Arrival Mode Ambulatory,Cane Wheelchair Ambulatory,Cane Transfer Assistance None Other Transfer Assist (Other) 1 assist/blind Accompanied by Patient Identification Verified (Name & Yes Yes Yes ) Patient Requires Transmission-Based No No Precautions Safety Precautions NA Finger Stick Blood Sugar(mg/dl) (if 102 indicated): Blood Sugar Stated by Patient Height and Weight Body Mass Index (BMI) 33.2 33.2 33.2 BMI Classification Obese Obese Obese Vital Signs Temperature (97.8 F-99.1 F) 97.1 F L 97.3 F L 96.2 F L Temperature Source Temporal Temporal Temporal Pulse Rate (60-100) 95 75 89 Pulse Location Monitor Monitor Monitor Respiratory Rate (12-18) 16 16 Respiratory rate source Observation Observation Oxygen Delivery Method Room Air Room Air Blood Pressure (90/60-120/80) 122/72 H 128/71 H 117/61 Blood Pressure Mean (mm Hg) 88 90 79 Source Monitor Monitor Monitor Position Sitting Sitting Blood Pressure Location Left Arm Left Arm History Since Last Visit- (Skip if this is Patient's initial visit) Have you changed medications since your No No No last visit? Any new allergies or adverse reactions No No No Had a fall/change in ADL's that may No No No increase risk of falls Signs or symptoms of abuse and/or No No No neglect since last visit Have you been in the hospital since your No No No last visit? Has dressing in place as prescribed Yes Yes Yes Has compression in place as prescribed Yes Yes No Has offloadiing in place as prescribed N/A N/A N/A Experienced any changes in pain level or No No No management Left Footwear Diabetic Shoe Diabetic Shoe Regular Shoe Right Footwear Diabetic Shoe Diabetic Shoe Regular Shoe Pain Scale: 0-10 Numeric Is Patient Pain Free? Yes Yes Yes 11/23/21 10:28 WC - Today's Visit Information Type of service Follow-up Visit (Physician/PHARMACY COORDINATOR ) Arrival Mode Ambulatory Transfer Assistance Manual Transfer Assist (Other) x2 Accompanied by Patient Identification Verified (Name & Yes ) Patient Requires Transmission-Based No Precautions Safety Precautions Finger Stick Blood Sugar(mg/dl) (if 105 indicated): Blood Sugar Stated by Patient Height and Weight Body Mass Index (BMI) 33.2 BMI Classification Obese Vital Signs Temperature (97.8 F-99.1 F) 98.3 F Temperature Source Temporal Pulse Rate (60-100) 98 Pulse Location Monitor Respiratory Rate (12-18) 20 H Respiratory rate source Observation Oxygen Delivery Method Blood Pressure (90/60-120/80) 102/57 L Blood Pressure Mean (mm Hg) 72 Source Monitor Position Blood Pressure Location History Since Last Visit- (Skip if this is Patient's initial visit) Have you changed medications since your No last visit? Any new allergies or adverse reactions No Had a fall/change in ADL's that may No increase risk of falls Signs or symptoms of abuse and/or No neglect since last visit Have you been in the hospital since your last visit? Has dressing in place as prescribed No Has compression in place as prescribed Yes Has offloadiing in place as prescribed N/A Experienced any changes in pain level or No management Left Footwear Regular Shoe Right Footwear Regular Shoe Pain Scale: 0-10 Numeric Is Patient Pain Free? Yes - Nurse 1 - General Ulcer Measurement Start: 11/02/21 08:18 Freq: Status: Active Protocol: Activity Type Activity Date Activity User E-sign Co-sign Detail Recorded Client Recorded Date Recorded By Document 11/02/21 08:18 [facility] [id number] 11/02/21 08:27 [facility] Document 11/09/21 09:10 [facility] [id number] 11/09/21 09:19 [facility] Document 11/16/21 08:18 BM [id number] 11/16/21 08:24 BM Document 11/23/21 10:28 DL [id number] 11/23/21 10:56 DL 11/02/21 11/09/21 11/16/21 08:18 09:10 08:18 Wound Center Nurse 1 #5- LLE CLUSTER -Combined with other wound No No No -Current Size (cm) - Length 0.8 0.1 0.9 -Current Size (cm) - Width 1.3 0.1 0.5 -Current Size (cm) - Depth 0.1 0.1 0.1 -Total Square Cm 1.04 0.01 0.45 -Date of Last Picture (Recall this 11/02/21 11/09/21 11/16/21 field) -Photo Taken Yes Yes Yes -Epithelialization None Present Large 67-100% -Tunneling No -Undermining/Tunneling No -Circular Undermining No -Exudate Amt Small None Present -Exudate Type Serosanguineous -Wound Margin Distinct, Outline Attached -Granulation Amt Large (67-100%) -Granulation Quality [place] -Slough/Fibrin Yes -Necrosis Amt Small (1-33%) -Necrotic Tissue Type Adherent Slough -Texture (Jada-wound Skin Appearance) Assessed, Assessed, Scarring Scarring -Moisture (Jada-wound Skin Appearance) Assessed,Dry/ Assessed,Dry/ Scaly Scaly -Color (Jada-wound Skin Appearance) Assessed Assessed -Temperature (Jada-wound Skin No Abnormality No Abnormality Appearance) (Pt Warm) (Pt Warm) -Tenderness on Palpation (Jada-wound No No Skin Appearance) -Ulcer Cleansing Soap and Water Soap and Water -Foul Odor after Cleansing No No -Anesthetic Used 5% Lidocaine 5% Lidocaine Gel Gel #4- L CHEN SUPERIOR -Combined with other wound No No No -Combined with (Name of Wound-Exactly as it is documented) -Current Size (cm) - Length 1.5 0.7 0.1 -Current Size (cm) - Width 1.4 0.8 0.1 -Current Size (cm) - Depth 0.1 0.1 0.1 -Total Square Cm 2.10 0.56 0.01 -Date of Last Picture (Recall this 11/02/21 11/09/21 field) -Photo Taken Yes Yes No -Epithelialization None Present Small 1-33% None Present -Tunneling No No No -Undermining/Tunneling No No No -Circular Undermining No No No -Exudate Amt Small Small None Present -Exudate Type Serosanguineous Serosanguineous -Wound Margin Distinct, Distinct, Outline Outline Attached Attached -Granulation Amt Medium (34-66%) Medium (34-66%) None Present (0 %) -Granulation Quality Red Red N/A -Slough/Fibrin Yes Yes No -Necrosis Amt Medium (34-66%) Small (1-33%) -Necrotic Tissue Type Adherent Slough Adherent Slough -Structure Exposed N/A -Texture (Jada-wound Skin Appearance) Assessed, Assessed, No Abnormality, Scarring Scarring Assessed -Moisture (Jada-wound Skin Appearance) Assessed Assessed No Abnormality, Assessed -Color (Jada-wound Skin Appearance) Assessed, Assessed No Abnormality, Hemosiderin Assessed Staining -Temperature (Jada-wound Skin No Abnormality No Abnormality No Abnormality Appearance) (Pt Warm) (Pt Warm) (Pt Warm) -Tenderness on Palpation (Jada-wound No No No Skin Appearance) -Ulcer Cleansing Soap and Water Soap and Water Rinsed/ Irrigated with Saline -Foul Odor after Cleansing No No No -Anesthetic Used 5% Lidocaine 5% Lidocaine 5% Lidocaine Gel Gel Gel #3 L CHEN -Combined with other wound No No No -Current Size (cm) - Length 1.4 1.7 0.5 -Current Size (cm) - Width 0.8 0.9 0.4 -Current Size (cm) - Depth 0.1 0.2 0.1 -Total Square Cm 1.12 1.53 0.20 -Date of Last Picture (Recall this 11/02/21 11/09/21 11/16/21 field) -Photo Taken Yes Yes Yes -Epithelialization Small 1-33% Small 1-33% None Present -Tunneling No No No -Undermining/Tunneling No No No -Circular Undermining No No No -Change in Wound Grade/Stage No -Exudate Amt Small Small None Present -Exudate Type Serosanguineous Serosanguineous -Wound Margin Distinct, Distinct, Flat & Intact Outline Outline Attached Attached -Granulation Amt Medium (34-66%) Medium (34-66%) None Present (0 %) -Granulation Quality Red Red N/A -Slough/Fibrin Yes Yes No -Necrosis Amt Medium (34-66%) Medium (34-66%) None Present (0 %) -Necrotic Tissue Type Adherent Slough Adherent Slough -Structure Exposed N/A -Texture (Jada-wound Skin Appearance) Assessed, Assessed, No Abnormality, Scarring Scarring Assessed -Moisture (Jada-wound Skin Appearance) Assessed Assessed No Abnormality, Assessed -Color (Jada-wound Skin Appearance) Assessed, Assessed No Abnormality, Hemosiderin Assessed Staining -Temperature (Jada-wound Skin No Abnormality No Abnormality No Abnormality Appearance) (Pt Warm) (Pt Warm) (Pt Warm) -Tenderness on Palpation (Jada-wound No No No Skin Appearance) -Ulcer Cleansing Soap and Water Soap and Water Rinsed/ Irrigated with Saline -Foul Odor after Cleansing No No No -Anesthetic Used 5% Lidocaine 5% Lidocaine 5% Lidocaine Gel Gel Gel -Wound Comment(s) scabbed Lower Limb Edema Present Yes Yes Left Calf (cm) 39.3 39.2 27.6 Left Ankle (cm) 22.2 22 21.8 11/23/21 10:28 Wound Center Nurse 1 #5- LLE CLUSTER -Combined with other wound -Current Size (cm) - Length -Current Size (cm) - Width -Current Size (cm) - Depth -Total Square Cm -Date of Last Picture (Recall this field) -Photo Taken -Epithelialization -Tunneling -Undermining/Tunneling -Circular Undermining -Exudate Amt -Exudate Type -Wound Margin -Granulation Amt -Granulation Quality -Slough/Fibrin -Necrosis Amt -Necrotic Tissue Type -Texture (Jada-wound Skin Appearance) -Moisture (Jada-wound Skin Appearance) -Color (Jada-wound Skin Appearance) -Temperature (Jada-wound Skin Appearance) -Tenderness on Palpation (Jada-wound Skin Appearance) -Ulcer Cleansing -Foul Odor after Cleansing -Anesthetic Used #4- L CHEN SUPERIOR -Combined with other wound -Combined with (Name of Wound-Exactly .2 as it is documented) -Current Size (cm) - Length 0.2 -Current Size (cm) - Width 0.1 -Current Size (cm) - Depth -Total Square Cm 0.02 -Date of Last Picture (Recall this field) -Photo Taken No -Epithelialization -Tunneling -Undermining/Tunneling -Circular Undermining -Exudate Amt None Present -Exudate Type -Wound Margin Thickened -Granulation Amt Large (67-100%) -Granulation Quality [place] -Slough/Fibrin -Necrosis Amt Small (1-33%) -Necrotic Tissue Type Adherent Slough -Structure Exposed N/A -Texture (Jada-wound Skin Appearance) Scarring -Moisture (Jada-wound Skin Appearance) No Abnormality -Color (Jada-wound Skin Appearance) Hemosiderin Staining -Temperature (Jada-wound Skin No Abnormality Appearance) (Pt Warm) -Tenderness on Palpation (Jada-wound No Skin Appearance) -Ulcer Cleansing Rinsed/ Irrigated with Saline -Foul Odor after Cleansing No -Anesthetic Used 5% Lidocaine Gel #3 L CHEN -Combined with other wound -Current Size (cm) - Length 0.4 -Current Size (cm) - Width 0.2 -Current Size (cm) - Depth 0.1 -Total Square Cm 0.08 -Date of Last Picture (Recall this field) -Photo Taken No -Epithelialization -Tunneling -Undermining/Tunneling -Circular Undermining -Change in Wound Grade/Stage -Exudate Amt None Present -Exudate Type -Wound Margin Thickened -Granulation Amt Large (67-100%) -Granulation Quality [place] -Slough/Fibrin -Necrosis Amt Small (1-33%) -Necrotic Tissue Type Eschar -Structure Exposed N/A -Texture (Jada-wound Skin Appearance) Scarring -Moisture (Jada-wound Skin Appearance) No Abnormality -Color (Jada-wound Skin Appearance) Not Assessed -Temperature (Jada-wound Skin No Abnormality Appearance) (Pt Warm) -Tenderness on Palpation (Jada-wound No Skin Appearance) -Ulcer Cleansing Rinsed/ Irrigated with Saline -Foul Odor after Cleansing No -Anesthetic Used 5% Lidocaine Gel -Wound Comment(s) Lower Limb Edema Present Left Calf (cm) 37 Left Ankle (cm) 23.5 WC - Nurse 2 - General Ulcer CM Notes Start: 11/02/21 08:18 Freq: Status: Active Protocol: Activity Type Activity Date Activity User E-sign Co-sign Detail Recorded Client Recorded Date Recorded By Document 11/02/21 08:35 MW [id number] 11/02/21 08:43 MW Document 11/09/21 09:41 MW [id number] 11/09/21 09:46 MW Document 11/16/21 08:41 MW [id number] 11/16/21 08:47 MW Document 11/23/21 11:07 MW [id number] 11/23/21 11:09 MW 11/02/21 11/09/21 06 08:35 09:41 08:41 Wound Center Nurse 2 #5- LLE CLUSTER -Time 08:37 09:41 08:41 -Correct Patient Yes Yes Yes -Correct Side, Site, Position Yes Yes Yes -Correct Procedure Yes Yes Yes -Procedure Performed Yes No No -Type of Procedure Debridement -Clinical Debridement Subcutaneous -Tissue Removed Subcutaneous -Post Debridement (cm) - Length 1.3 0.1 0 -Post Debridement (cm) - Width 2.0 0.1 0 -Post Debridement (cm) - Depth 0.2 0.1 0 -Total Square (Post) (cm) 2.60 0.01 0 -Area of Debridement (cm) - Length 1.3 -Area of Debridement (cm) - Width 2.0 -Total Square (Area) (cm) 2.60 -Tunneling No No No -Undermining/Tunneling No No No -Circular Undermining No No No -Wound/Ulcer Outcome Not Healed Not Healed Healed- Epithelialized -Ulcer Cleansing Rinsed/ Rinsed/ Irrigated with Irrigated with Saline Saline -Foul Odor after Cleansing No No -Bioengineered Tissue No No -Bleeding Controlled with Pressure NA -Treatment Response Procedure Tolerated Well -Offloading No No -Debridement - Subq, 1st 20sq cm Yes #4- L CHEN SUPERIOR -Time 08:37 09:42 08:42 -Correct Patient Yes Yes Yes -Correct Side, Site, Position Yes Yes Yes -Correct Procedure Yes Yes Yes -Procedure Performed Yes Yes Yes -Type of Procedure Debridement Debridement Debridement -Clinical Debridement Subcutaneous Subcutaneous Subcutaneous -Tissue Removed Subcutaneous Subcutaneous Subcutaneous -Post Debridement (cm) - Length 1.5 0.9 0.4 -Post Debridement (cm) - Width 1.3 0.9 0.4 -Post Debridement (cm) - Depth 0.1 0.1 0.1 -Total Square (Post) (cm) 1.95 0.81 0.16 -Area of Debridement (cm) - Length 1.5 0.9 0.4 -Area of Debridement (cm) - Width 1.3 0.9 0.4 -Total Square (Area) (cm) 1.95 0.81 0.16 -Tunneling No No No -Undermining/Tunneling No No No -Circular Undermining No No No -Wound/Ulcer Outcome Not Healed Not Healed Not Healed -Ulcer Cleansing Rinsed/ Rinsed/ Rinsed/ Irrigated with Irrigated with Irrigated with Saline Saline Saline -Foul Odor after Cleansing No No No -Bioengineered Tissue No No No -Bleeding Controlled with Pressure Pressure Pressure -Treatment Response Procedure Procedure Procedure Tolerated Well Tolerated Well Tolerated Well -Offloading No No No -Debridement - Subq, 1st 20sq cm No No Yes #3 L CHEN -Time 08:38 09:42 08:42 -Correct Patient Yes Yes Yes -Correct Side, Site, Position Yes Yes Yes -Correct Procedure Yes Yes Yes -Procedure Performed Yes Yes Yes -Type of Procedure Debridement Debridement Debridement -Clinical Debridement Subcutaneous Subcutaneous Subcutaneous -Tissue Removed Subcutaneous Subcutaneous Subcutaneous -Post Debridement (cm) - Length 1.9 1.5 0.7 -Post Debridement (cm) - Width 0.8 0.5 0.2 -Post Debridement (cm) - Depth 0.1 0.1 0.1 -Total Square (Post) (cm) 1.52 0.75 0.14 -Area of Debridement (cm) - Length 1.9 1.5 0.7 -Area of Debridement (cm) - Width 0.8 0.5 0.2 -Total Square (Area) (cm) 1.52 0.75 0.14 -Tunneling No No No -Undermining/Tunneling No No No -Circular Undermining No No No -Wound/Ulcer Outcome Not Healed Not Healed Not Healed -Ulcer Cleansing Rinsed/ Rinsed/ Rinsed/ Irrigated with Irrigated with Irrigated with Saline Saline Saline -Foul Odor after Cleansing No No No -Bioengineered Tissue No No No -Bleeding Controlled with Pressure Pressure Pressure -Treatment Response Procedure Procedure Procedure Tolerated Well Tolerated Well Tolerated Well -Offloading No No No -Debridement - Subq, 1st 20sq cm No No No Pain Scale: 0-10 Numeric Is Patient Pain Free? Yes Yes Yes 11/23/21 11:07 Wound Center Nurse 2 #5- LLE CLUSTER -Time -Correct Patient -Correct Side, Site, Position -Correct Procedure -Procedure Performed -Type of Procedure -Clinical Debridement -Tissue Removed -Post Debridement (cm) - Length -Post Debridement (cm) - Width -Post Debridement (cm) - Depth -Total Square (Post) (cm) -Area of Debridement (cm) - Length -Area of Debridement (cm) - Width -Total Square (Area) (cm) -Tunneling -Undermining/Tunneling -Circular Undermining -Wound/Ulcer Outcome -Ulcer Cleansing -Foul Odor after Cleansing -Bioengineered Tissue -Bleeding Controlled with -Treatment Response -Offloading -Debridement - Subq, 1st 20sq cm #4- L CHEN SUPERIOR -Time 11:08 -Correct Patient Yes -Correct Side, Site, Position Yes -Correct Procedure Yes -Procedure Performed No -Type of Procedure -Clinical Debridement -Tissue Removed -Post Debridement (cm) - Length 0 -Post Debridement (cm) - Width 0 -Post Debridement (cm) - Depth -Total Square (Post) (cm) 0 -Area of Debridement (cm) - Length -Area of Debridement (cm) - Width -Total Square (Area) (cm) -Tunneling -Undermining/Tunneling -Circular Undermining -Wound/Ulcer Outcome Healed- Epithelialized -Ulcer Cleansing -Foul Odor after Cleansing -Bioengineered Tissue -Bleeding Controlled with -Treatment Response -Offloading -Debridement - Subq, 1st 20sq cm #3 L CHEN -Time 11:09 -Correct Patient Yes -Correct Side, Site, Position Yes -Correct Procedure Yes -Procedure Performed No -Type of Procedure -Clinical Debridement -Tissue Removed -Post Debridement (cm) - Length 0 -Post Debridement (cm) - Width 0 -Post Debridement (cm) - Depth -Total Square (Post) (cm) 0 -Area of Debridement (cm) - Length -Area of Debridement (cm) - Width -Total Square (Area) (cm) -Tunneling -Undermining/Tunneling -Circular Undermining -Wound/Ulcer Outcome Healed- Epithelialized -Ulcer Cleansing -Foul Odor after Cleansing -Bioengineered Tissue -Bleeding Controlled with -Treatment Response -Offloading -Debridement - Subq, 1st 20sq cm Pain Scale: 0-10 Numeric Is Patient Pain Free? Yes WC - Nurse 3 - General Ulcer D/C NN Start: 11/02/21 08:18 Freq: Status: Active Protocol: Activity Type Activity Date Activity User E-sign Co-sign Detail Recorded Client Recorded Date Recorded By Document 11/02/21 08:46 [facility] [id number] 11/02/21 08:47 BM Document 11/09/21 09:58 [facility] [id number] 11/09/21 10:00 [facility] Document 11/16/21 08:50 [facility] [id number] 11/16/21 08:51 [facility] Document 11/23/21 11:23 IN [id number] 11/23/21 11:24 IN 11/02/21 11/09/21 11/16/21 08:46 09:58 08:50 Wound Care Nurse 3 #5- LLE CLUSTER -Ulcer Cleansing Rinsed/ Rinsed/ Irrigated with Irrigated with Saline Saline -Foul Odor after Cleansing No No -Primary Dressing Applied Fibracol Plus NonAdherent 4x4,NonAdherent Contact Layer Contact Layer -Primary Dressing Covered/Secured with Dry Gauze & Dry Gauze & Roll Gauze, Roll Gauze, Secured with Secured with Tape Tape -Fibracol Plus 4x4 1 #4- L HCEN SUPERIOR -Ulcer Cleansing Rinsed/ Rinsed/ Rinsed/ Irrigated with Irrigated with Irrigated with Saline Saline Saline -Foul Odor after Cleansing No No No -Primary Dressing Applied Fibracol Plus Fibracol Plus Fibracol Plus 4x4,NonAdherent 4x4 4x4,NonAdherent Contact Layer Contact Layer -Primary Dressing Covered/Secured with Dry Gauze & Dry Gauze & Dry Gauze & Roll Gauze, Roll Gauze, Roll Gauze, Secured with Secured with Secured with Tape Tape Tape -Other Covering drsg per ak mail distribution clerk -Fibracol Plus 4x4 0 1 1 #3 L CHEN -Ulcer Cleansing Rinsed/ Rinsed/ Rinsed/ Irrigated with Irrigated with Irrigated with Saline Saline Saline -Foul Odor after Cleansing No No No -Primary Dressing Applied Fibracol Plus Fibracol Plus Fibracol Plus 4x4,NonAdherent 4x4,NonAdherent 4x4,NonAdherent Contact Layer Contact Layer Contact Layer -Primary Dressing Covered/Secured with Dry Gauze & Dry Gauze & Dry Gauze & Roll Gauze, Roll Gauze, Roll Gauze, Secured with Secured with Secured with Tape Tape Tape -Other Covering drsg per [place] mail distribution clerk -Fibracol Plus 4x4 0 0 1 Left -Tubular Bandage Single Layer Single Layer -Size of Tubigrip Used Size E Size E -Size E ($) 1 1 -Size F ($) -Other applied pts own single layer tubi Treatment Response Procedure Procedure Procedure Tolerated Well Tolerated Well Tolerated Well Pain Scale: 0-10 Numeric Is Patient Pain Free? Yes Yes Yes WC - Visit Discharge Discharge Condition Stable Stable Stable Ambulatory Status Ambulatory,Cane Wheelchair Wheelchair Transportation Private Auto Private Auto Private Auto Accompanied by Medication Reconcilliation completed & provided to patient/care provider Clinical Summary of Care Provided Notes: 11/23/21 11:23 Wound Care Nurse 3 #5- LLE CLUSTER -Ulcer Cleansing -Foul Odor after Cleansing -Primary Dressing Applied -Primary Dressing Covered/Secured with -Fibracol Plus 4x4 #4- L CHEN SUPERIOR -Ulcer Cleansing -Foul Odor after Cleansing -Primary Dressing Applied -Primary Dressing Covered/Secured with -Other Covering -Fibracol Plus 4x4 #3 L CHEN -Ulcer Cleansing -Foul Odor after Cleansing -Primary Dressing Applied -Primary Dressing Covered/Secured with -Other Covering -Fibracol Plus 4x4 Left -Tubular Bandage Double Layer -Size of Tubigrip Used Size F -Size E ($) -Size F ($) 2 -Other Treatment Response Pain Scale: 0-10 Numeric Is Patient Pain Free? Yes WC - Visit Discharge Discharge Condition Stable Ambulatory Status Wheelchair Transportation Private Auto Accompanied by Medication Reconcilliation completed & No provided to patient/care provider Clinical Summary of Care Provided Yes Notes: healed Assessment/Plan Assessment/Plan (1) Ulcer of left lower extremity with fat layer exposed: CODE(S): L97.922 - Non-pressure chronic ulcer of unspecified part of left lower leg with fat layer exposed (2) DM type 2 (diabetes mellitus, type 2): CODE(S): E11.9 - Type 2 diabetes mellitus without complications QUALIFIERS: Diabetes mellitus termite exterminator insulin use: with jail use Diabetes mellitus complication status: with other specified complication Qualified Code(s): E11.69 - Type 2 diabetes mellitus with other specified complication; Z79.4 - superintendent container terminal (current) use of insulin (3) Venous insufficiency of both lower extremities: CODE(S): I87.2 - Venous insufficiency (chronic) (peripheral) PLAN: Plan Healed. No new concerns at this time. Adaptic over top for 2 weeks. Moisturize adequately. Continue compression and leg elevation. Continuous edema management. The questions were answered and they were advised to call with any further questions or concerns. Discharge from the wound clinic. This note was generated with [employer] software. It may contain incorrect words, spelling, and punctuation that were not noted in checking the note before signing.
== END 2021-11-30 23:59 | disposition home or self-care (01) ==
LOC: WC 10:30
PROVIDERS: PCP Family Medicine; Visit Provider Internal Medicine
DX: E11.622 Type 2 diabetes mellitus with other skin ulcer (principal); L97.822 Non-pressure chronic ulcer of other part of left lower leg with fat layer exposed; E11.59 Type 2 diabetes mellitus with other circulatory complications; Z79.4 Long term (current) use of insulin; I87.2 Venous insufficiency (chronic) (peripheral)
CPT/HCPCS: 11042; 99213; G0463

== ENCOUNTER → 2021-11-29 | Outpatient (CLI) | payer MEDICARE, OTHER, SELFPAY | END | disposition home or self-care (01) | LOC: LABSPEC 10:14 | PROVIDERS: PCP Family Medicine; Visit Provider Family Medicine | DX: L72.9 Follicular cyst of the skin and subcutaneous tissue, unspecified (principal) | CPT/HCPCS: 87070; 87205 ==

== ENCOUNTER 2021-12-21 08:45 | Outpatient (RCR) | payer MEDICARE, OTHER, SELFPAY ==
[2021-12-01 00:41] VITALS: BP 102/57; PULSE 98; RESP 20; TEMP 36.8; BMI 33.2
[2021-12-14 08:10] VITALS: BP 108/66; PULSE 82; RESP 16; TEMP 36.6; BMI 33.2
--- NOTE | 2021-12-14 09:23 | PCM.WC.HP ---
History of Present Illness Date of Service: 12/14/21 Chief Complaint: Left Leg Ulcer History of Wound: Mr. Turcios is a 71-year-old who was just discharged for lower extremity ulcerations who now present with a new back wound. Has had an area of swelling on his back which has been present for years. Initial intervention per his was about 20 years ago however lately, they have noted recurrent swelling. He was scratching it with his walking stick and subsequently developed a wound in the area. Also seen by his primary care physician and had an incision and drainage of the area. Placed on antibiotics. He feels well at this time, denies chills, fever, nausea or vomiting. [facility] Medical History (Updated 12/14/21 @ 09:[address] Kyleigh Andrade MD) Anxiety and depression Back problem Chronic diastolic (congestive) heart failure COPD (chronic obstructive pulmonary disease) DM type 2 (diabetes mellitus, type 2) Essential (primary) hypertension Head trauma Hx of transfusion of whole blood Hyperlipidemia Hypothyroidism Infected cyst of skin Left ventricular diastolic dysfunction Longstanding persistent atrial fibrillation Obesity (BMI 30-39.9) Open wound of back without complication Poorly controlled type 2 diabetes mellitus Right bundle branch block (RBBB) Sepsis Ulcer of left lower extremity with fat layer exposed Venous insufficiency of both lower extremities Home Medications pravastatin 40 mg tablet 40 mg PO QHS cholesterol 07/30/14 [History Last Taken 02/12/20 16:30] rivaroxaban 20 mg tablet 20 mg PO DINNER blood thinner 08/16/19 [History Last Taken 02/12/20 16:30] metformin 500 mg tablet,extended release 24 hr 1,000 mg PO DAILY 03/02/20 [History Last Taken Unknown] furosemide 40 mg tablet 40 mg PO DAILY 05/16/21 [History Last Taken Unknown] insulin glargine 100 unit/mL subcutaneous solution (Lantus U-100 Insulin) 16 unit subcut BID 10/05/21 [History Last Taken Unknown] PEP device #1 ea 11/14/21 [Rx Last Taken Unknown] insulin lispro 100 unit/mL subcutaneous pen 20 unit subcut BID 11/14/21 [History Last Taken Unknown] levothyroxine 150 mcg tablet 150 mcg PO DAILY 11/14/21 [History Last Taken Unknown] venlafaxine 75 mg capsule,extended release 24 hr 225 mg PO QAM 11/14/21 [History Last Taken Unknown] cephalexin 500 mg capsule 500 mg PO 4X/DAY 12/14/21 [History Last Taken Unknown] sulfamethoxazole 800 mg-trimethoprim 160 mg tablet (Bactrim DS) 1 tab PO BID 12/14/21 [History Last Taken Unknown] Allergy/AdvReac Type Severity Reaction Status Date / Time shellfish derived Allergy Hives Verified 12/14/21 08:27 Family History Mother Cancer Surgical History H/O hernia repair Social History Smoking Status: Former smoker quit date: 06/03/09 second hand exposure: No alcohol intake: never substance use type: does not use ROS Constitutional Constitutional: Denies anorexia, change in weight, chills, daytime sleepiness, difficulty sleeping or excessive sweating Eyes Eyes: Denies burning, eye pain, itchy eyes or periorbital itching ENT HEENT: Denies ear pain, epistaxis, facial pain, foreign body in nose, mouth lesions or mouth pain Cardiovascular Cardiovascular: Denies abdominal pain, chest pain at rest, claudication, cyanosis, fatigue or flutter in chest Respiratory/Chest Respiratory/Chest: Denies cough, difficulty clearing secretions, dry cough, dusky skin, excessive phlegm production, hemoptysis or hoarseness Gastrointestinal Gastrointestinal: Denies abdominal pain, anorexia, bloating, coffee ground emesis, dyspepsia or dysphagia Genitourinary Genitourinary: Denies abdominal discomfort, genital lesions, genital pain, hematuria or itching Musculoskeletal Musculoskeletal: Denies joint pain, joint stiffness, joint swelling, loss of height, muscle cramps or muscle spasms Integumentary Integumentary: Denies alopecia, dry skin, hirsutism, jaundice or lesions Neurologic Neurologic: Denies abnormal hearing, abnormal movements, abnormal speech, behavior changes or burning sensations Psychiatric Psychiatric: Denies anxiety, auditory hallucinations, behavioral changes, change in appetite, depression or difficulty concentrating Endocrine Endocrinology: Denies change in body appearance, fatigue, flushing, heat intolerance or increase in ring/shoe/hat size Allergic/Immunologic Allergic/Immunologic: Denies itchy eyes, lip swelling, seasonal rhinorrhea, rhinitis, throat swelling or tongue swelling Vital Signs Vital Signs Vital Signs: 12/14/21 08:10 Temperature 98 F Temperature Source Temporal Pulse Rate 82 Respiratory Rate 16 Blood Pressure 108/66 Blood Pressure Mean 80 Blood Pressure Source Monitor Blood Pressure Position Sitting Blood Pressure Location Left Arm Oxygen Delivery Method Room Air Weight Weight: 266 lb Body Mass Index (BMI) 33.2 Physical Exam Const alert, oriented x3 and no apparent distress General Appearance: cooperative, comfortable and well kempt HEENT normocephalic and head/scalp atraumatic Neck full ROM General: normal visual inspection Resp normal respiratory effort Effort and Inspection: able to speak in complete sentences GI soft to palpation and non-tender Extremity General Extremity: edema Skin Wounds: wounds noted Neuro oriented x3, CN's II-XII intact bilaterally, moves all extremities and no focal motor deficits Psych mental status grossly normal Appearance: grossly normal Attitude: calm Activity / Motor Behavior: appropriate eye contact Debridement Note Debridement Note Wound debrided: Mid back Type of Debridement: Excisional debridement Depth: Down to and including healthy tissue and in the subcutaneous layer Percentage of wound debrided: 100 Instrument Used: 3mm curette Tissue Removed: Slough and devitalized tissue Severity: Fat Layer Exposed Amount of bleeding with debridement: Mild Bleeding Controlled with: Pressure Patient tolerated procedure: Patient tolerated procedure well Post-Debridement Measurements and Additional Note: Post-Debridement Measurements/Treatment - Nurse 1 - General Ulcer Assessment Start: 12/14/21 08:10 Freq: Status: Active Protocol: BRYANNA.SHANNAN Activity Type Activity Date Activity User E-sign Co-sign Detail Recorded Client Recorded Date Recorded By Document 12/14/21 08:10 [facility] [id number] 12/14/21 08:21 [facility] 12/14/21 08:10 - Today's Visit Information Type of service Initial Visit Arrival Mode Ambulatory,Cane ,Wheelchair Transfer Assistance Other Transfer Assist (Other) stand by d/t poor vision Accompanied by Patient Identification Verified (Name & Yes ) Height and Weight Body Mass Index (BMI) 33.2 BMI Classification Obese Vital Signs Temperature (97.8 F-99.1 F) 98 F Temperature Source Temporal Pulse Rate (60-100) 82 Pulse Location Monitor Respiratory Rate (12-18) 16 Respiratory rate source Observation Oxygen Delivery Method Room Air Blood Pressure (90/60-120/80) 108/66 Blood Pressure Mean 80 Source Monitor Position Sitting Blood Pressure Location Left Arm History Since Last Visit- (Skip if this is Patient's initial visit) Left Footwear Regular Shoe Right Footwear Regular Shoe Pain Scale: 0-10 Numeric Is Patient Pain Free? Yes WC - Nurse 1 - General Ulcer Measurement Start: 12/14/21 08:10 Freq: Status: Active Protocol: Activity Type Activity Date Activity User E-sign Co-sign Detail Recorded Client Recorded Date Recorded By Document 12/14/21 08:10 [facility] [id number] 12/14/21 08:21 [facility] 12/14/21 08:10 Wound Center Nurse 1 #7- mid back inferior cluster -Combined with other wound No -Current Size (cm) - Length 0.4 -Current Size (cm) - Width 1.2 -Current Size (cm) - Depth 0.3 -Total Square Cm 0.48 -Date of Last Picture (Recall this 12/14/21 field) -Photo Taken Yes -Epithelialization None Present -Tunneling No -Undermining/Tunneling No -Circular Undermining No -Exudate Amt None Present -Wound Margin Distinct, Outline Attached -Granulation Amt Large (67-100%) -Granulation Quality Red -Slough/Fibrin No -Necrosis Amt None Present (0 %) -Texture (Jada-wound Skin Appearance) Assessed, Localized Edema ,Scarring -Moisture (Jada-wound Skin Appearance) Assessed -Color (Jada-wound Skin Appearance) Assessed, Erythema -Temperature (Jada-wound Skin No Abnormality Appearance) (Pt Warm) -Tenderness on Palpation (Ajda-wound No Skin Appearance) -Ulcer Cleansing Rinsed/ Irrigated with Saline -Foul Odor after Cleansing No -Anesthetic Used 5% Lidocaine Gel #6- mid back superior -Combined with other wound No -Current Size (cm) - Length 0.1 -Current Size (cm) - Width 0.1 -Current Size (cm) - Depth 0.3 -Total Square Cm 0.01 -Date of Last Picture (Recall this 12/14/21 field) -Photo Taken Yes -Epithelialization None Present -Tunneling No -Undermining/Tunneling No -Circular Undermining No -Exudate Amt Large -Exudate Type Purulent -Wound Margin Distinct, Outline Attached -Granulation Amt Large (67-100%) -Granulation Quality Red -Slough/Fibrin No -Necrosis Amt None Present (0 %) -Texture (Jada-wound Skin Appearance) Assessed, Localized Edema ,Scarring -Moisture (Jada-wound Skin Appearance) Assessed -Color (Jada-wound Skin Appearance) Assessed, Erythema -Temperature (Jada-wound Skin No Abnormality Appearance) (Pt Warm) -Tenderness on Palpation (Jada-wound No Skin Appearance) -Ulcer Cleansing Rinsed/ Irrigated with Saline -Foul Odor after Cleansing No -Anesthetic Used 5% Lidocaine Gel WC - Nurse 2 - General Ulcer CM Notes Start: 12/14/21 08:10 Freq: Status: Active Protocol: Activity Type Activity Date Activity User E-sign Co-sign Detail Recorded Client Recorded Date Recorded By Document 12/14/21 08:42 MW [id number] 12/14/21 08:47 MW 12/14/21 08:42 Wound Center Nurse 2 #7- mid back inferior cluster -Time 08:43 -Correct Patient Yes -Correct Side, Site, Position Yes -Correct Procedure Yes -Procedure Performed Yes -Type of Procedure Debridement -Clinical Debridement Subcutaneous -Tissue Removed Subcutaneous -Post Debridement (cm) - Length 0.8 -Post Debridement (cm) - Width 1.3 -Post Debridement (cm) - Depth 0.1 -Total Square (Post) (cm) 1.04 -Area of Debridement (cm) - Length 0.8 -Area of Debridement (cm) - Width 1.3 -Total Square (Area) (cm) 1.04 -Tunneling No -Undermining/Tunneling No -Circular Undermining No -Wound/Ulcer Outcome Not Healed -Ulcer Cleansing Rinsed/ Irrigated with Saline -Foul Odor after Cleansing No -Bioengineered Tissue No -Bleeding Controlled with Pressure -Treatment Response Procedure Tolerated Well -Offloading No -Debridement - Subq, 1st 20sq cm Yes #6- mid back superior -Time 08:43 -Correct Patient Yes -Correct Side, Site, Position Yes -Correct Procedure Yes -Procedure Performed No -Tunneling No -Undermining/Tunneling No -Circular Undermining No -Wound/Ulcer Outcome Not Healed Pain Scale: 0-10 Numeric Is Patient Pain Free? Yes BRYANNA - Nurse 3 - General Ulcer D/C NN Start: 12/14/21 08:10 Freq: Status: Active Protocol: Activity Type Activity Date Activity User E-sign Co-sign Detail Recorded Client Recorded Date Recorded By Document 12/14/21 08:49 MW [id number] 12/14/21 08:50 MW Edit Result 12/14/21 08:49 MW (1) [id number] 12/14/21 08:54 MW (1) #6- mid back superior - Primary Dressing Applied => Mepilex Border - Other Covering aquacel extra, => aquacel extra mepilex => - Mepilex Border => 1 12/14/21 08:49 Wound Care Nurse 3 #7- mid back inferior cluster -Ulcer Cleansing Rinsed/ Irrigated with Saline -Foul Odor after Cleansing No -Negative Pressure Wound Therapy N/A -Primary Dressing Applied Aquacel Extra, Mepilex Border -Aquacel Extra 1 -Mepilex Border 1 #6- mid back superior -Ulcer Cleansing Rinsed/ Irrigated with Saline -Foul Odor after Cleansing No -Negative Pressure Wound Therapy N/A -Primary Dressing Applied Mepilex Border -Other Covering aquacel extra -Mepilex Border 1 Treatment Response Procedure Tolerated Well Pain Scale: 0-10 Numeric Is Patient Pain Free? Yes Teaching: Wound Center Dressing Your Wound -Person Taught Patient -Teaching Method Discussion -Response to teaching Verbalize understanding WC - Visit Discharge Discharge Condition Stable Ambulatory Status Cane,Wheelchair Transportation Private Auto Accompanied by self Medication Reconcilliation completed & No provided to patient/care provider Clinical Summary of Care Provided Yes Charges/Coding Visit Charges Office Visits / Consults: 12291 OV L3 Est Procedures Integumentary [id number]: [id number] Rowan subq tissue 20 sq cm/< Assessment/Plan Assessment/Plan (1) Open wound of back without complication: CODE(S): S21.209A - Unspecified open wound of unspecified back wall of thorax without penetration into thoracic cavity, initial encounter (2) Infected cyst of skin: CODE(S): L72.9 - Follicular cyst of the skin and subcutaneous tissue, unspecified; L08.9 - Local infection of the skin and subcutaneous tissue, unspecified (3) DM type 2 (diabetes mellitus, type 2): CODE(S): E11.9 - Type 2 diabetes mellitus without complications QUALIFIERS: Diabetes mellitus 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 ?Epidermal inclusion cyst versus sebaceous cyst. He was advised that incision and drainage alone will not take care of it. The whole wall has to come out. Will be referred to general surgery. Debridement of wound done as documented above, procedure was well-tolerated. Aquacel extra cover with gauze. Change daily to twice daily depending on drainage. Optimal diabetes control. His questions were answered and he was advised to call with any further questions or concerns. Follow-up in 1 week. This note was generated with [employer] dictation software. It may contain incorrect words, spelling, and punctuation that were not noted in checking the note before signing.
[2021-12-21 08:41] VITALS: BP 106/58; PULSE 85; RESP 16; TEMP 36.4; BMI 33.2
--- NOTE | 2021-12-21 10:36 | PN.PCM_ITS ---
History of Present Illness Date of Service: 12/21/21 Chief Complaint: Left Leg Ulcer History of Wound: Mr. Turcios is a 71-year-old who was just discharged for lower extremity ulcerations who now present with a new back wound. Has had an area of swelling on his back which has been present for years. Initial intervention per his was about 20 years ago however lately, they have noted recurrent swelling. He was scratching it with his walking stick and subsequently developed a wound in the area. Also seen by his primary care physician and had an incision and drainage of the area. Placed on antibiotics. He feels well at this time, denies chills, fever, nausea or vomiting. Progress of Wound: Significant improvement. Essentially healed. Infected cyst still draining. Objective Data Objective Data Vital Signs: Vital Signs Temp Pulse Resp BP O2 Del Method 97.5 F L 85 16 106/58 L Room Air 12/21/21 08:41 12/21/21 08:41 12/21/21 08:41 12/21/21 08:41 12/21/21 08:41 Oxygen Delivery Method Room Air Weight: 266 lb Body Mass Index (BMI) 33.2 Charges/Coding Visit Charges Office Visits / Consults: 54789 OV L3 Est Physical Exam Const alert, oriented x3 and no apparent distress General Appearance: cooperative, comfortable and well kempt HEENT normocephalic and head/scalp atraumatic Neck full ROM General: normal visual inspection Resp normal respiratory effort Effort and Inspection: able to speak in complete sentences GI soft to palpation and non-tender Extremity General Extremity: edema Skin Wounds: wounds noted Neuro oriented x3, CN's II-XII intact bilaterally, moves all extremities and no focal motor deficits Psych mental status grossly normal Appearance: grossly normal Attitude: calm Activity / Motor Behavior: appropriate eye contact Debridement Note Debridement Note Post-Debridement Measurements and Additional Note: Post-Debridement Measurements/Treatment WC - Nurse 1 - General Ulcer Assessment Start: 12/14/21 08:10 Freq: Status: Active Protocol: OLIVIA Activity Type Activity Date Activity User E-sign Co-sign Detail Recorded Client Recorded Date Recorded By Document 12/14/21 08:10 [facility] [id number] 12/14/21 08:21 BM Document 12/21/21 08:41 [facility] [id number] 12/21/21 08:50 [facility] 12/14/21 12/21/21 08:10 08:41 - Today's Visit Information Type of service Initial Visit Follow-up Visit (Physician/GOVERNMENT PROPERTY INSPECTOR ) Arrival Mode Ambulatory,Cane Wheelchair ,Wheelchair Transfer Assistance Other Other Transfer Assist (Other) stand by d/t stayed in chair poor vision Accompanied by Patient Identification Verified (Name & Yes Yes ) Patient Requires Transmission-Based No Precautions Height and Weight Body Mass Index (BMI) 33.2 33.2 BMI Classification Obese Obese Vital Signs Temperature (97.8 F-99.1 F) 98 F 97.5 F L Temperature Source Temporal Temporal Pulse Rate (60-100) 82 85 Pulse Location Monitor Monitor Respiratory Rate (12-18) 16 16 Respiratory rate source Observation Observation Oxygen Delivery Method Room Air Room Air Blood Pressure (90/60-120/80) 108/66 106/58 L Blood Pressure Mean (mm Hg) 80 74 Source Monitor Monitor Position Sitting Sitting Blood Pressure Location Left Arm Left Arm History Since Last Visit- (Skip if this is Patient's initial visit) Have you changed medications since your No last visit? Any new allergies or adverse reactions No Had a fall/change in ADL's that may No increase risk of falls Signs or symptoms of abuse and/or No neglect since last visit Have you been in the hospital since your No last visit? Has dressing in place as prescribed Yes Has compression in place as prescribed N/A Has offloadiing in place as prescribed N/A Experienced any changes in pain level or No management Left Footwear Regular Shoe Regular Shoe Right Footwear Regular Shoe Regular Shoe Pain Scale: 0-10 Numeric Is Patient Pain Free? Yes Yes - Nurse 1 - General Ulcer Measurement Start: 12/14/21 08:10 Freq: Status: Active Protocol: Activity Type Activity Date Activity User E-sign Co-sign Detail Recorded Client Recorded Date Recorded By Document 12/14/21 08:10 [facility] [id number] 12/14/21 08:21 [facility] Document 12/21/21 08:41 [facility] [id number] 12/21/21 08:50 [facility] 12/14/21 12/21/21 08:10 08:41 Wound Center Nurse 1 #7- mid back inferior cluster -Combined with other wound No No -Current Size (cm) - Length 0.4 0.1 -Current Size (cm) - Width 1.2 0.1 -Current Size (cm) - Depth 0.3 0.1 -Total Square Cm 0.48 0.01 -Date of Last Picture (Recall this 12/14/21 12/21/21 field) -Photo Taken Yes Yes -Epithelialization None Present Large 67-100% -Tunneling No No -Undermining/Tunneling No No -Circular Undermining No No -Exudate Amt None Present None Present -Wound Margin Distinct, Distinct, Outline Outline Attached Attached -Granulation Amt Large (67-100%) None Present (0 %) -Granulation Quality Red -Slough/Fibrin No Yes -Necrosis Amt None Present (0 %) -Texture (Jada-wound Skin Appearance) Assessed, Assessed, Localized Edema Scarring ,Scarring -Moisture (Jada-wound Skin Appearance) Assessed Assessed -Color (Jada-wound Skin Appearance) Assessed, Assessed Erythema -Temperature (Jada-wound Skin No Abnormality No Abnormality Appearance) (Pt Warm) (Pt Warm) -Tenderness on Palpation (Jada-wound No No Skin Appearance) -Ulcer Cleansing Rinsed/ Rinsed/ Irrigated with Irrigated with Saline Saline -Foul Odor after Cleansing No No -Anesthetic Used 5% Lidocaine 5% Lidocaine Gel Gel #6- mid back superior -Combined with other wound No No -Current Size (cm) - Length 0.1 0.1 -Current Size (cm) - Width 0.1 0.2 -Current Size (cm) - Depth 0.3 0.4 -Total Square Cm 0.01 0.02 -Date of Last Picture (Recall this 12/14/21 12/21/21 field) -Photo Taken Yes Yes -Epithelialization None Present Small 1-33% -Tunneling No No -Undermining/Tunneling No No -Circular Undermining No No -Exudate Amt Large Small -Exudate Type Purulent Serosanguineous -Wound Margin Distinct, Distinct, Outline Outline Attached Attached -Granulation Amt Large (67-100%) Large (67-100%) -Granulation Quality Red Red -Slough/Fibrin No No -Necrosis Amt None Present (0 None Present (0 %) %) -Texture (Jada-wound Skin Appearance) Assessed, Assessed, Localized Edema Scarring ,Scarring -Moisture (Jada-wound Skin Appearance) Assessed Assessed -Color (Jada-wound Skin Appearance) Assessed, Assessed Erythema -Temperature (Jada-wound Skin No Abnormality No Abnormality Appearance) (Pt Warm) (Pt Warm) -Tenderness on Palpation (Jada-wound No No Skin Appearance) -Ulcer Cleansing Rinsed/ Rinsed/ Irrigated with Irrigated with Saline Saline -Foul Odor after Cleansing No No -Anesthetic Used 5% Lidocaine 5% Lidocaine Gel Gel WC - Nurse 2 - General Ulcer CM Notes Start: 12/14/21 08:10 Freq: Status: Active Protocol: Activity Type Activity Date Activity User E-sign Co-sign Detail Recorded Client Recorded Date Recorded By Document 12/14/21 08:42 MW [id number] 12/14/21 08:47 MW 12/14/21 08:42 Wound Center Nurse 2 #7- mid back inferior cluster -Time 08:43 -Correct Patient Yes -Correct Side, Site, Position Yes -Correct Procedure Yes -Procedure Performed Yes -Type of Procedure Debridement -Clinical Debridement Subcutaneous -Tissue Removed Subcutaneous -Post Debridement (cm) - Length 0.8 -Post Debridement (cm) - Width 1.3 -Post Debridement (cm) - Depth 0.1 -Total Square (Post) (cm) 1.04 -Area of Debridement (cm) - Length 0.8 -Area of Debridement (cm) - Width 1.3 -Total Square (Area) (cm) 1.04 -Tunneling No -Undermining/Tunneling No -Circular Undermining No -Wound/Ulcer Outcome Not Healed -Ulcer Cleansing Rinsed/ Irrigated with Saline -Foul Odor after Cleansing No -Bioengineered Tissue No -Bleeding Controlled with Pressure -Treatment Response Procedure Tolerated Well -Offloading No -Debridement - Subq, 1st 20sq cm Yes #6- mid back superior -Time 08:43 -Correct Patient Yes -Correct Side, Site, Position Yes -Correct Procedure Yes -Procedure Performed No -Tunneling No -Undermining/Tunneling No -Circular Undermining No -Wound/Ulcer Outcome Not Healed Pain Scale: 0-10 Numeric Is Patient Pain Free? Yes WC - Nurse 3 - General Ulcer D/C NN Start: 12/14/21 08:10 Freq: Status: Active Protocol: Activity Type Activity Date Activity User E-sign Co-sign Detail Recorded Client Recorded Date Recorded By Document 12/14/21 08:49 MW [id number] 12/14/21 08:50 MW Edit Result 12/14/21 08:49 MW (1) [id number] 12/14/21 08:54 MW Document 12/21/21 09:21 DL [id number] 12/21/21 09:23 DL (1) #6- mid back superior - Primary Dressing Applied => Mepilex Border - Other Covering aquacel extra, => aquacel extra mepilex => - Mepilex Border => 1 12/14/21 12/21/21 08:49 09:21 Wound Care Nurse 3 #7- mid back inferior cluster -Ulcer Cleansing Rinsed/ Rinsed/ Irrigated with Irrigated with Saline Saline -Foul Odor after Cleansing No No -Negative Pressure Wound Therapy N/A -Primary Dressing Applied Aquacel Extra, Mepilex Border Mepilex Border -Aquacel Extra 1 -Mepilex Border 1 1 #6- mid back superior -Ulcer Cleansing Rinsed/ Rinsed/ Irrigated with Irrigated with Saline Saline -Foul Odor after Cleansing No No -Negative Pressure Wound Therapy N/A -Primary Dressing Applied Mepilex Border Mepilex Border -Other Covering aquacel extra -Mepilex Border 1 1 Treatment Response Procedure Procedure Tolerated Well Tolerated Well Pain Scale: 0-10 Numeric Is Patient Pain Free? Yes Yes Teaching: Wound Center Dressing Your Wound -Person Taught Patient -Teaching Method Discussion -Response to teaching Verbalize understanding WC - Visit Discharge Discharge Condition Stable Stable Ambulatory Status Cane,Wheelchair Ambulatory Transportation Private Auto Private Auto Accompanied by self Medication Reconcilliation completed & No provided to patient/care provider Clinical Summary of Care Provided Yes Notes: healed. discharged Assessment/Plan Assessment/Plan (1) Open wound of back without complication: CODE(S): S21.209A - Unspecified open wound of unspecified back wall of thorax without penetration into thoracic cavity, initial encounter (2) Infected cyst of skin: CODE(S): L72.9 - Follicular cyst of the skin and subcutaneous tissue, unspecified; L08.9 - Local infection of the skin and subcutaneous tissue, unspecified (3) DM type 2 (diabetes mellitus, type 2): CODE(S): E11.9 - Type 2 diabetes mellitus without complications QUALIFIERS: Diabetes mellitus terminal block assembler insulin use: with terminal block assembler use Diabetes mellitus complication status: with other specified complication Qualified Code(s): E11.69 - Type 2 diabetes mellitus with other specified complication; Z79.4 - oysterman (current) use of insulin PLAN: Plan Open back wound is essentially healed. Cover with Adaptic for 2 weeks and then stop. Recurrent cyst is still draining as above, has an appointment with general surgery in about 2 weeks, he would need surgical removal of cyst wall to avoid recurrence. Continue foam dressing over area. Change daily to twice daily depending on drainage. Optimal diabetes control. His questions were answered and he was advised to call with any further questions or concerns. Discharge from the wound clinic. This note was generated with [employer] dictation software. It may contain incorrect words, spelling, and punctuation that were not noted in checking the note before signing.
== END 2021-12-21 15:34 | disposition home or self-care (01) ==
LOC: WC 08:45
PROVIDERS: PCP Family Medicine; Visit Provider Internal Medicine
DX: E11.622 Type 2 diabetes mellitus with other skin ulcer (principal); L97.822 Non-pressure chronic ulcer of other part of left lower leg with fat layer exposed; L98.422 Non-pressure chronic ulcer of back with fat layer exposed; J44.9 Chronic obstructive pulmonary disease, unspecified; I11.0 Hypertensive heart disease with heart failure; I50.32 Chronic diastolic (congestive) heart failure; E11.59 Type 2 diabetes mellitus with other circulatory complications; Z79.4 Long term (current) use of insulin; Z87.891 Personal history of nicotine dependence; L08.9 Local infection of the skin and subcutaneous tissue, unspecified; E78.5 Hyperlipidemia, unspecified; Z79.899 Other long term (current) drug therapy; Z79.01 Long term (current) use of anticoagulants; E66.9 Obesity, unspecified; Z68.33 Body mass index [BMI] 33.0-33.9, adult
CPT/HCPCS: 11042; 99213; G0463

== ENCOUNTER 2022-01-05 09:20 | Day surgery (SDC) | payer MEDICARE, OTHER, SELFPAY ==
[2022-01-05] VITALS (8 sets, daily range): BP systolic 80–101; BP diastolic 51–70; PULSE 59–70; RESP 18–20; TEMP 36.4–36.7; O2SAT 94–98; BMI 32.3
--- NOTE | 2022-01-05 | CYST_PTH ---
PATIENT: ARMIN [place]AND [place] [facility] [id number] AGE/SX: 71/M ROOM: RE01/05/[address]: Dr. Sam Guerrero MD : 1950 BED: DIS: 01/05/2022 SPEC #: [id number] RECD: 01/05/22 14:56 STATUS: JORDY REDerek #: [id number] LEROY: 01/05/22 00:[address]: Sam Guerrero DEPT: SURGICAL PATHOLOGY RECD BY: Corky Muñoz ENTERED: 01/08/22 08:34 SP TYPE: Cyst OTHR DR: Dr. Raffaele Olguin MD Tissues: CYST Procedures: Surgery Specimen Level III HEADER OPERATION: Excision sebaceous cyst, upper back PRE-OP DIAGNOSIS: Sebaceous cyst back TISSUE SUBMITTED: Right back cyst MICROSCOPIC DIAGNOSIS Cyst of back, excision: Epidermal inclusion cyst with associated reparative and reactive change. AM:davin 01/09/2022 MICROSCOPIC DESCRIPTION Slides are reviewed. GROSS DESCRIPTION Received in fixative is one container labeled with the patient's name and designated right back cyst. The specimen consists of a piece of skin with underlying tissue. The skin piece measures 7.5 x 2 cm and underlying tissue measures 6 x 3.5 x 2.5 cm. Also present in the container is a detached piece of hemorrhagic adipose tissue measuring 4.5 x 2.5 x 1 cm. Sections reveal a collapsed cyst measuring 2 cm in greatest dimension. No cyst contents are identified. Business Liaison Manager sections are submitted in four cassettes. / SJ:davin 01/08/2022 TC:5 [facility]: [id number]
[2022-01-05] MEDS: Lactated Ringers 1,000 ML 15 ML IV (09:40)
[2022-01-05 10:31] LABS: Bedside Glucose 162 mg/dL (74-106)
[2022-01-05] MEDS: Cefazolin 2 GM in 0.9% Normal Saline 100 ML IV (11:15)
--- NOTE | 2022-01-05 11:17 | PCM.HP.BLA ---
History and Physical Date of Service:? 12/29/21 MR#: [id number] Acct: [id number] Name:? ARMIN CHAND Rep #: [id number] : 1950 ? ? Provider: Dr. Sam Guerrero MD Age/Sex:? 71/M ? ? Location: [facility] Status: Signed Intake Vital Signs ? 11/14/2208:22 12/29/2212:48 Height 6 ft 3 in ? BP ? 117/72 Blood Pressure Location ? Rt brachial Position ? Sitting Respiration ? 17 Pulse ? 70 Pulse Source ? Monitor Temp ? 97.5 F L Temp Source ? Temporal Pulse Oximetry (%) ? 97 Oxygen Delivery Method ? room air Intake Visit Reasons:?CHRONIC CYST ON BACK Chief Complaint: Cyst on back Site Lead Required: No Is patient in pain?: No Allergies shellfish derived Allergy (Verified 12/29/21 13:52) Hives Medications pravastatin 40 mg tablet 40 mg PO QHS cholesterol 07/30/14 [History Confirmed 12/29/21] rivaroxaban 20 mg tablet 20 mg PO DINNER blood thinner 08/16/19 [History Confirmed 12/29/21] metformin 500 mg tablet,extended release 24 hr 1,000 mg PO DAILY 03/02/20 [History Confirmed 12/29/21] furosemide 40 mg tablet 40 mg PO DAILY 05/16/21 [History Confirmed 12/29/21] insulin glargine 100 unit/mL subcutaneous solution (Lantus U-100 Insulin) 16 unit subcut BID 10/05/21 [History Confirmed 12/29/21] PEP device #1 ea 11/14/21 [Rx Confirmed 12/29/21] insulin lispro 100 unit/mL subcutaneous pen 20 unit subcut BID 11/14/21 [History Confirmed 12/29/21] levothyroxine 150 mcg tablet 150 mcg PO DAILY 11/14/21 [History Confirmed 12/29/21] venlafaxine 75 mg capsule,extended release 24 hr 225 mg PO QAM 11/14/21 [History Confirmed 12/29/21] PFSH Medical History?(Updated 12/29/21 @ 14:[address] Sam Guerrero MD) Anxiety and depression Back problem Chronic diastolic (congestive) heart failure COPD (chronic obstructive pulmonary disease) DM type 2 (diabetes mellitus, type 2) Essential (primary) hypertension Head trauma Hx of transfusion of whole blood Hyperlipidemia Hypothyroidism Infected cyst of skin Left ventricular diastolic dysfunction Longstanding persistent atrial fibrillation Obesity (BMI 30-39.9) Open wound of back without complication Poorly controlled type 2 diabetes mellitus Right bundle branch block (RBBB) Sepsis Ulcer of left lower extremity with fat layer exposed Venous insufficiency of both lower extremities Surgical History?(Updated 12/29/21 @ 13:48 by Jillian Saturday) H/O hernia repair History of inguinal hernia repair Family History? Mother Cancer Social History? Smoking Status:? Former smoker quit date: 06/03/09 second hand exposure:? No alcohol intake:? never substance use type:? does not use HPI HPI HPI: ARMIN CHAND, is a 71 M who presents to the office today for of a back cyst that has been nonhealing.? Patient's provides most of the history.? She states that the cyst has been present for at least 20 years.? It was previously cleaned out by Dr. Joel.? She then relates that the cyst became infected some 3 weeks to a month ago.? Patient was initially seen by Dr. Toure who opened the cyst and drained a amount of foul-smelling white material.? Patient was then referred to the wound care clinic where he has had 2 visits.? Patient's states that he completed 2 courses of antibiotics (Bactrim and Keflex) and has been off these antibiotics for 5 days now.? Patient now confirms that there is no pain, but some lingering itchiness.? He has not had any other growths like this before.? His past medical history is confirmed as included in the chart?including use of Xarelto 20 mg for a diagnosis of atrial fibrillation.? His reports that blood sugars have been well controlled recently and cites values in the high 90s to mid 130s recently. ROS General General: No weight change, appetite, fatigue, colon cancer, breast cancer or weakness HEENT HEENT: Yes eye surgery; No difficulty swallowing, eye injury, swollen glands or hoarseness Endo Endocrine: Yes thyroid disease and diabetes mellitus; No thyroid cancer, Hair loss, heat intolerance or cold intolerance Skin Skin: No rash or changing moles Musc Musculoskeletal: No back problems, arthritis, rheumatoid arthritis, gout or joint pain Cardio Cardiovascular: Yes atrial fibrillation; No murmur, pacemaker, heart disease, high blood pressure, heart attack, heart stent, palpitations, shortness of breat with exertion or chest pain Psych Psychiatric: Yes depression; No anxiety or hearing voices Resp Respiratory: No shortness of breath, No sleep apnea, No cough, No COPD, No asthma, No emphysema and No wheezing Gastro Gastrointestinal: No abdominal pain, No nausea or vomiting, No diarrhea, No constipation, No blood in stool, No acid reflux, No hemorrhoids, No ulcers, No gallbladder problem and No black,tarry stools Abundio Hematologic: Yes blood thinners, No blood disorders, No bleeding, No anemia and No blood clots Neuro Neurologic: No system reviewed and no additional complaints, except as documented, No as per HPI, No abnormal gait, No abnormal hearing, No abnormal movements, No abnormal speech, No behavioral changes, No burning sensations, No confusion, No convulsions, No disequilibrium, No dizziness, No localized weakness, No frequent falls, No headache(s), No lack of coordination, No loss of vision, No memory loss, No numbness, No other visual disturbances, No radicular pain, No restless legs, No sensory deficit, No syncope, No tingling, No tremor(s), No weakness and No other Exam Const General: cooperative and no acute distress Nutritional Appearance: overweight Other: Patient appears initially somewhat uncooperative with his history, but it is clear he is also hard of hearing and legally blind Resp Effort & Inspection: normal respiratory effort Auscultation: no rales, no rhonchi and no wheezes Skin Lesions: lesion noted (Small area of fluctuance and a sinus tract with milky white drainage) cyst right upper back Assessment and Plan Assessment and Plan (1) Infected cyst of skin: ?Status:?Acute ?Comment: Patient presents with history that is strongly suspicious for a right upper back sebaceous cyst that became infected approximately 3 weeks to a month ago.? Patient's believes this was result of him scratching it with the bottom of his cane.? Cyst was initially incised by Dr. Toure and then referred to wound care center for ongoing management.? Patient has completed 2 courses of antibiotics and the cyst infection appears resolved.? However, they note some ongoing drainage from the site.? This picture is confirmed on exam where patient has some residual fluctuance in the right upper back with a sinus tract and scant drainage of a milky sebum.? Patient also reports a history of prior incision and drainage some 20 years ago.? Given these repeated prior interventions, there is likely to be scar tissue in this area.? Further, simply given its location the skin thickness is greater.? Taken together, I recommend excision of this likely sebaceous cyst in the operating room under a local MAC.? This recommendation has been shared with patient and his spouse.? They are in agreement.? I have also shared we will need to hold his anticoagulation 48 hours prior to the procedure and an additional 48 hours post procedure to mitigate risk for any bleeding complications.? We will plan to notify patient's PCP, Dr. Raffaele Olguin of this intent. ?Plan: ? Right upper back cyst excision under local MAC in the next week to 2 weeks at first mutually available convenience.? Patient requires holding of anticoagulation 48 hours prior. I have re-examined the patient. There are no clinical changes since date of exam. Patient has confirmed he has held his anticoagulation as requested. We will plan to proceed with excision of sebaceous cyst as discussed above.
[2022-01-05] MEDS: Bupivacaine 0.25% 30 ML Vial (12:00)
--- NOTE | 2022-01-05 13:31 | OP.PCM_ITS ---
Report of Operation Date of Procedure: 01/05/22 Pre-Operative Diagnosis: Sebaceous cyst of right upper back Post-Operative Diagnosis: Same Surgery/Procedure Performed:: Excision of sebaceous cyst Surgeon: Sam Guerrero optical goods worker: Rachel Rondon Type of Anesthesia: MAC/Supplemental Anesthesiologist: Flaco Fitzgerald Specimen's removed: Right back cyst Drains: 10 [place] round Tristan Estimated Blood Loss (mL): 100 Description of Procedure: After appropriate identification in the preoperative holding area the patient was brought to the operating room where he was positioned supine and preoperative antibiotics were completed. He was then administered sedation by anesthesia. Following this initiation of sedation he was repositioned in a left lateral decubitus position and his right upper back was prepped and draped in usual sterile fashion. Initially I performed a local block with bupivacaine and made an elliptical incision about his scar from his prior incision and drainage procedure, however more cephalad to this I noted a sinus tract with drainage of a milky white character. This was suspicious for communication with the scarred area approximately 3 cm inferiorly. Using a combination of sharp and blunt dissection I encircled the cyst inferiorly, this proved to be a very tedious process due to extensive scarring in this location. As I approached the superior aspect of the cyst there was a cephalad extension of the cyst which proceeded for a significant distance underneath the skin. We also encountered some bleeding at this location so I made a decision to come across the cyst where it was with scissors and obtain hemostasis. Once hemostasis was obtained I reexamined the cephalad extension of the sac and there was indeed an epithelialized sac extending approximately 1.5 to 2 cm cephalad. I elected to make a wider local excision to incorporate patient's draining sinus tract and make consideration of the resulting soft tissue closure. Additional local anesthetic was instilled at this point for total volume of 18 mL 0.25% bupivacaine. Then this remaining sac was excised in like fashion to the inferior portion with primarily careful sharp dissection taking care to maintain hemostasis as we proceeded. The cephalad portion was passed off the field for permanent section and the wound was irrigated. Selective electrocautery was used to obtain hemostasis. Then examining the wound it appeared that there would be some undue tension in the mid portion of the wound so I used electrocautery to relieve some of this tension in the subcutaneous layer as well as extending the incision approximately 1 cm laterally. 2-0 Vicryl was then use d to approximate the midportion of the incision in a [id number] to distribute the tension more broadly. With 2 of the stitches along the midportion of the wound I created a counterincision inferior to my surgical cavity and inserted a 10 [place] round [place] drain. This drain was placed along the wound base and was tied in at the skin using a 2-0 nylon suture. Several additional deep dermal sutures were placed using 2-0 Vicryl to approximate the wound. Lastly I placed a series of interrupted vertical mattress sutures using 2-0 nylon to fully close the wound. This produced a curvilinear closure and that measured 10 cm in length and held the skin edges nicely apposed. Our Tristan drain was then placed to suction and the wound was dressed with a Vaseline impregnated gauze and plain 4 x 4 gauzes to enhance absorbency. Procedure was then finished and the sedation was lifted. Patient was taken to PACU for ongoing recovery. Complications None Admit VTE Documentation VTE Present on Admission: Yes VTE Mechan Device Prophylaxis: SCD's Procedures Integumentary 114x: [id number] Exc tr-ext b9+theodora >4.0 cm
--- NOTE | 2022-01-05 14:10 | DCINST_ITS ---
Discharge Instructions Diet Discharge Diet: No restrictions Activity May shower in (days): 2 Lifting Restrictions: Right upper extremity should be restricted to no lifting greater than 15 lb Dressing / Incision Call your doctor if your incision/area has: Continuous Slow Oozing, Sudden Increased Bleeding, Increased Pain/ Swelling, Increased Redness, Foul Smelling Discharge and Swelling at the incision site Call your doctor if you observe: Fever of 101 or Higher Remove Dressing in: 2 days Cleanse incision/area with: Soap & Water (Once dressing is removed) Additional Dressing/Incision Instructions:: Please record 24-hour outputs for surgical drain Follow Up Care Please Follow Up With: Sam Guerrero MD When: 7 days postop Test Results: Test results from this visit will be discussed in further detail at your follow- up appointment, if applicable. Discharge Plan Admission Primary Reason for Your Visit: Excision of sebaceous cyst Attending Provider: Sam Guerrero Primary Care Provider: Raffaele Olguin Instructions Patient Instructions: Closed Suction Drainage Tube Discharge Orders/Prescriptions Prescriptions: New tramadol 50 mg tablet 50 mg PO Q6H PRN (Reason: pain) Qty: 14 0RF No Action metformin 500 mg tablet extended release 24 hr 1,000 mg PO DAILY Label Comments: TAKE 2 TABLETS EVERY DAY furosemide 40 mg tablet 20 mg PO DAILY venlafaxine 75 mg capsule,extended release 24hr 225 mg PO QAM levothyroxine 150 mcg tablet 150 mcg PO DAILY (DME) PEP device See Rx Instructions .Route .MEDSUPPLY Qty: 1 0RF Rx Instructions: with training pravastatin 40 MG tablet 40 mg PO QHS Xarelto 20 MG tablet 20 mg PO DINNER insulin glargine [Lantus U-100 Insulin] 100 unit/mL Solution 10 unit SUBCUT 0800 insulin lispro [Humalog KwikPen Insulin] 100 unit/mL insulin pen 20 unit SUBCUT BID ferrous sulfate 325 mg (65 mg iron) Tablet 325 mg PO DAILY cholecalciferol (vitamin D3) [Vitamin D3] 25 mcg (1,000 unit) Capsule 25 mcg PO DAILY Referrals / Follow Up: Raffaele Olguin MD [Primary Care Provider] - Disposition Disposition (needs filled in before D/C Order can be placed): Home, Self Care
== END 2022-01-05 15:00 | disposition home or self-care (01) ==
LOC: SDC 09:20 → AC 09:22
PROVIDERS: PCP Family Medicine; Referring Provider Surgery; Visit Provider Surgery
PROC: (CPT 38500; principal; 2022-01-05 10:45)
DX: L72.3 Sebaceous cyst (principal); L08.9 Local infection of the skin and subcutaneous tissue, unspecified; J44.9 Chronic obstructive pulmonary disease, unspecified; I50.32 Chronic diastolic (congestive) heart failure; I11.0 Hypertensive heart disease with heart failure; I48.91 Unspecified atrial fibrillation; Z79.4 Long term (current) use of insulin; E11.9 Type 2 diabetes mellitus without complications; Z79.890 Hormone replacement therapy; Z79.899 Other long term (current) drug therapy; Z87.891 Personal history of nicotine dependence; E78.5 Hyperlipidemia, unspecified; E03.9 Hypothyroidism, unspecified
CPT/HCPCS: 11406; 12034; 00300; 82962; 88304; J7120; J2405

== ENCOUNTER → 2022-03-30 | Outpatient (CLI) | payer MEDICARE, OTHER, SELFPAY ==
[2022-03-30 09:57] LABS: Absolute Lymphocyte Count 1.77 X10^3/uL (0.83-4.51); Absolute Neutrophil Count 2.9 X10^3/uL (2.0-7.7); Basophil# 0.02 X10^3/uL; Basophil% 0.4 % (0-1); Eosinophil# 0.14 X10^3/uL; Eosinophils% 2.6 % (0-5); Hematocrit 39.5 % (40-54); Lymphocyte # 1.77 X10^3/ul (0.83-4.51); Lymphocyte % 33.1 % (19-41); Mean Corp Hgb Conc 32.9 g/dL (32-36); Mean Corpuscular Hgb 31.9 pg (27.0-32.0); Mean Corpuscular Volume 97.1 fL (80-94); Monocyte# 0.49 X10^3/uL; Monocyte% 9.2 % (0-10); NRBC Flagged by Analyzer 0 % (0-5); Neutrophil # 2.89 X10^3/uL (2.7-7.7); Neutrophil % 54.1 % (47-70); POSITIVE COUNT YES; RBC Distribution Width CV 13.9 % (11.6-14.6); RBC Distribution Width SD 49.4 fl (35.1-43.9); Red Blood Count 4.07 M/mm3 (4.6-6.2); White Blood Count 5.3 K/mm3 (4.4-11.0)
[2022-03-30 10:13] LABS: Hemoglobin A1c 6.2 % (3.8-5.6)
[2022-03-30 10:23] LABS: ALB/GLOB Ratio 0.8 RATIO (0.9-2.4); AST(SGOT) 15 U/L (15-37); Alanine Aminotransfer ALT/SGPT 21 U/L (16-61); Albumin, Serum 3.2 g/dL (3.2-5.0); Alkaline Phosphatase 72 U/L (45-117); Anion Gap 5 (5-15); BUN 16 mg/dL (7-18); BUN/Creat Ratio 19.4 RATIO (10-20); Calcium,Total 9.3 mg/dL (8.5-10.1); Chloride 107 mmol/L (98-107); Creatinine, Serum 0.83 mg/dL (0.70-1.30); EST Glomerular Filtration Rate 97 mL/min (>60); Est Glom Filt Rate - Afr Amer 117 mL/min (>60); Globulin 3.9 g/dL (2.2-4.2); Glucose 116 mg/dL (74-106); Potassium 3.7 mmol/L (3.5-5.1); Protein, Total 7.1 g/dL (6.4-8.2); Sodium Level 141 mmol/L (136-145)
[2022-03-30 10:59] LABS: Platelet Estimate ADEQUATE (ADEQ); Platelet Morphology CLUMPED
[2022-03-30 11:00] LABS: Differential Indicated SCAN CRITERIA MET
== END | disposition home or self-care (01) ==
LOC: MFPLAB 09:15
PROVIDERS: PCP Family Medicine; Referring Provider Family Medicine; Visit Provider Family Medicine
DX: I50.32 Chronic diastolic (congestive) heart failure (principal); E11.49 Type 2 diabetes mellitus with other diabetic neurological complication
CPT/HCPCS: 36415; 80053; 83036; 85025

== ENCOUNTER 2022-07-10 21:48 | Emergency (ER) | payer MEDICARE, OTHER, SELFPAY ==
[2022-07-10 21:49] VITALS: BP 142/76; PULSE 69; RESP 16; TEMP 36.6; O2SAT 100; BMI 32.3
--- NOTE | 2022-07-10 22:15 | RAD_ITS ---
INDICATION: Stubbed fourth digit, bleeding EXAMINATION/TECHNIQUE: X-RAY - RIGHT XR Foot Min 3 Views 3 VIEWS COMPARISON: None. FINDINGS: SOFT TISSUES: Fourth digit soft tissue irregularity. No radiopaque foreign body. BONES/JOINTS: No acute fracture or subluxation.. Lisfranc and Chopart planes appear normal. Preservation of the joint space. No sclerotic or destructive changes observed. RAD/Foot min 3 Views IMPRESSION: Fourth digit soft tissue irregularity. No finding of fracture or dislocation. Electronically Signed: Ezequiel Doherty MD at 22:32 EST ,
--- NOTE | 2022-07-10 22:45 | ED.VIS.LOWEX ---
HPI History of Present Illness Chief Complaint: Laceration Narrative Narrative: 72-year-old male presenting with nail avulsion from the right fourth toe. He is on Xarelto and having difficulty stopping the bleeding. Patient denies any pain. Patient states he intermittently kicked a gait while walking. He did not fall or hit his head. [facility] Medical History Ambulates with cane Anemia Anxiety and depression Back problem Blind Cardiology follow-up encounter Chronic diastolic (congestive) heart failure COPD (chronic obstructive pulmonary disease) Depression Diabetes DM type 2 (diabetes mellitus, type 2) Essential (primary) hypertension Former smoker Head trauma High cholesterol History of atrial fibrillation History of echocardiogram History of edema History of Holter monitoring Hx of transfusion of whole blood Hyperlipidemia Hypothyroidism Infected cyst of skin Injury of head and neck Insulin dependent diabetes mellitus Left ventricular diastolic dysfunction Longstanding persistent atrial fibrillation Obesity (BMI 30-39.9) Open wound of back without complication Poorly controlled type 2 diabetes mellitus Right bundle branch block (RBBB) Sepsis Shortness of breath on exertion Thyroid disease Ulcer of left lower extremity with fat layer exposed Venous insufficiency of both lower extremities Wears dentures Home Medications pravastatin 40 mg tablet 40 mg PO QHS cholesterol 07/30/14 [History Last Taken 02/12/20 16:30] rivaroxaban 20 mg tablet (Xarelto) 20 mg PO DINNER blood thinner 08/16/19 [History Last Taken 01/02/22] metformin 500 mg tablet,extended release 24 hr 1,000 mg PO DAILY 03/02/20 [History Last Taken Unknown] furosemide 40 mg tablet 20 mg PO DAILY 05/16/21 [History Last Taken Unknown] insulin glargine 100 unit/mL subcutaneous solution (Lantus U-100 Insulin) 10 unit subcut 0800 10/05/21 [History Last Taken Unknown] PEP device #1 ea 11/14/21 [Rx Last Taken Unknown] insulin lispro 100 unit/mL subcutaneous pen (Humalog KwikPen (U-100) Insulin) 20 unit subcut BID 11/14/21 [History Last Taken Unknown] levothyroxine 150 mcg tablet 150 mcg PO DAILY 11/14/21 [History Last Taken 01/05/22] venlafaxine 75 mg capsule,extended release 24 hr 225 mg PO QAM 11/14/21 [History Last Taken Unknown] cholecalciferol (vitamin D3) 25 mcg (1,000 unit) capsule (Vitamin D3) 25 mcg PO DAILY 01/02/22 [History Last Taken Unknown] ferrous sulfate 325 mg (65 mg iron) tablet 325 mg PO DAILY 01/02/22 [History Last Taken Unknown] tramadol 50 mg tablet 50 mg PO Q6H PRN pain #14 tabs 01/05/22 [Rx Last Taken Unknown] Allergy/AdvReac Type Severity Reaction Status Date / Time shellfish derived Allergy Hives Verified 07/10/22 21:51 Family History Mother Cancer Surgical History H/O hernia repair History of inguinal hernia repair Hx of cataract surgery Hx of excision of dermoid cyst (~01/2022) Social History Smoking Status: Former smoker quit date: 06/03/09 second hand exposure: No alcohol intake: never substance use type: does not use ROS ROS ED Constitutional Constitutional ED: Denies chills, fever(s) or sweats Eyes Eyes: Denies blurry vision or change in vision ENT ENT ED: Denies ear pain or sore throat Cardiovascular Cardiovascular: Denies chest pain, palpitations or racing heartbeat Respiratory/Chest Respiratory/Chest: Denies cough, dyspnea or sputum Gastrointestinal Gastrointestinal: Denies abdominal pain, constipation, diarrhea, nausea or vomiting Genitourinary Genitourinary ED: Denies dysuria, hematuria or urinary frequency Musculoskeletal Musculoskeletal: Denies arthralgias, myalgias or neck pain Integumentary Reports other Details: Right fourth toe nail avulsed ; Denies abscess or Abrasions Neurologic Neurologic: Denies headache(s), paresthesias or weakness Psychiatric Psychiatric: Denies anxiety, depression, suicidal ideation or suicidal thoughts Endocrine Endocrinology: Denies polydipsia or polyuria EXAM Physical Exam Const Vital Signs: 07/10/22 21:49 Temperature 97.8 F Temperature Source Temporal Pulse Rate 69 Respiratory Rate 16 Blood Pressure 142/76 H Blood Pressure Mean 98 Pulse Ox 100 Oxygen Delivery Method Room Air Positive well nourished General Appearance ED: NAD HEENT Reports moist mucous membranes normocephalic Chest Wall inspection of chest normal Resp normal respiratory effort and no retractions Auscultation: Negative for rales, rhonchi or wheezes Cardio regular rate and regular rhythm Extremity Extremity Narrative: Right foot: It was avulsed from the right foot. There is bleeding from this area. There is no beltran laceration. There is no pain on examination. No deformity. Neurovascular intact there is cap refill. Neuro oriented x3 and CN's II-XII intact bilaterally Sensorium / Orientation: alert MDM MDM MDM Narrative Medical decision making narrative: Dressing was placed over the right 4th toe. Bleeding is well controlled. X-ray of the right foot shows no fracture or subluxation. Patient stable for discharge at this time. I did assistant corporation counsel the patient and his that he might have rebleeding of this and to apply direct pressure for 5 to 10 minutes should this start again and then redress it. If they cannot control the bleeding then return. Impression: 1. Right fourth toe nail avulsion Lab Data Attestation: I reviewed the patient's lab results. Radiography Diagnostic Testing: Clinical Impression(s) from Imaging Studies Foot X-Ray 07/10/22 22:15 IMPRESSION: Fourth digit soft tissue irregularity. No finding of fracture or dislocation. Electronically Signed: Ezequiel Doherty MD at 22:32 EST , Discharge Plan Triage Chief Complaint: Laceration ED Provider: Marco Nolen Dx/Rx/DC Orders Instructions: ED Detached Fingernail or Toenail Prescriptions: No Action metformin 500 mg tablet extended release 24 hr 1,000 mg PO DAILY Label Comments: TAKE 2 TABLETS EVERY DAY furosemide 40 mg tablet 20 mg PO DAILY venlafaxine 75 mg capsule,extended release 24hr 225 mg PO QAM levothyroxine 150 mcg tablet 150 mcg PO DAILY (DME) PEP device See Rx Instructions .Route .MEDSUPPLY Qty: 1 0RF Rx Instructions: with training pravastatin 40 MG tablet 40 mg PO QHS Xarelto 20 MG tablet 20 mg PO DINNER insulin glargine [Lantus U-100 Insulin] 100 unit/mL Solution 10 unit SUBCUT 0800 insulin lispro [Humalog KwikPen Insulin] 100 unit/mL insulin pen 20 unit SUBCUT BID ferrous sulfate 325 mg (65 mg iron) Tablet 325 mg PO DAILY cholecalciferol (vitamin D3) [Vitamin D3] 25 mcg (1,000 unit) Capsule 25 mcg PO DAILY tramadol 50 mg tablet 50 mg PO Q6H PRN (Reason: pain) Qty: 14 0RF Primary Care Provider: Raffaele Olguin Referrals: Raffaele Olguin MD [Primary Care Provider] - Disposition Disposition: Home, Self Care
== END 2022-07-11 00:21 | disposition home or self-care (01) ==
PROVIDERS: Emergency Provider Student in an Organized Health Care Education/Training Program; PCP Family Medicine; Visit Provider Student in an Organized Health Care Education/Training Program
DX: S91.114A Laceration without foreign body of right lesser toe(s) without damage to nail, initial encounter (principal); I50.32 Chronic diastolic (congestive) heart failure; Z87.891 Personal history of nicotine dependence; Z79.01 Long term (current) use of anticoagulants; X58.XXXA Exposure to other specified factors, initial encounter
CPT/HCPCS: 73630; 99284

== ENCOUNTER → 2022-07-13 | Outpatient (CLI) | payer MEDICARE, OTHER, SELFPAY ==
[2022-07-13 10:00] LABS: Absolute Lymphocyte Count 2.25 X10^3/uL (0.83-4.51); Absolute Neutrophil Count 4.1 X10^3/uL (2.0-7.7); Basophil# 0.02 X10^3/uL; Basophil% 0.3 % (0-1); Eosinophil# 0.13 X10^3/uL; Eosinophils% 1.8 % (0-5); Hematocrit 39.1 % (40-54); Hemoglobin 12.8 g/dL (13.0-16.5); Lymphocyte # 2.25 X10^3/ul (0.83-4.51); Lymphocyte % 31.6 % (19-41); Mean Corp Hgb Conc 32.7 g/dL (32-36); Mean Corpuscular Hgb 31.1 pg (27.0-32.0); Mean Corpuscular Volume 95.1 fL (80-94); Mean Platelet Vol. 13.8 fl (6.2-12.0); Monocyte# 0.55 X10^3/uL; Monocyte% 7.7 % (0-10); NRBC Flagged by Analyzer 0.3 % (0-5); Neutrophil # 4.14 X10^3/uL (2.7-7.7); Neutrophil % 58.2 % (47-70); POSITIVE COUNT YES; Platelet Count 164 K/mm3 (150-450); RBC Distribution Width CV 14.4 % (11.6-14.6); RBC Distribution Width SD 50.1 fl (35.1-43.9); Red Blood Count 4.11 M/mm3 (4.6-6.2); White Blood Count 7.1 K/mm3 (4.4-11.0)
[2022-07-13 10:28] LABS: ALB/GLOB Ratio 0.9 RATIO (0.9-2.4); AST(SGOT) 17 U/L (15-37); Alanine Aminotransfer ALT/SGPT 20 U/L (16-61); Albumin, Serum 3.4 g/dL (3.2-5.0); Alkaline Phosphatase 72 U/L (45-117); Anion Gap 7 (5-15); BUN 24 mg/dL (7-18); BUN/Creat Ratio 27.6 RATIO (10-20); Calcium,Total 9.3 mg/dL (8.5-10.1); Chloride 104 mmol/L (98-107); Creatinine, Serum 0.87 mg/dL (0.70-1.30); EST Glomerular Filtration Rate 91 mL/min (>60); Est Glom Filt Rate - Afr Amer 110 mL/min (>60); Globulin 3.7 g/dL (2.2-4.2); Glucose 170 mg/dL (74-106); Protein, Total 7.1 g/dL (6.4-8.2); Sodium Level 140 mmol/L (136-145)
[2022-07-13 10:54] LABS: Differential Indicated SCAN CRITERIA MET
[2022-07-13 10:56] LABS: Platelet Estimate ADEQUATE (ADEQ); Red Cell Morphology NORM C+C NORMAL (NORM C&C)
== END | disposition home or self-care (01) ==
LOC: MFPLAB 09:06
PROVIDERS: PCP Family Medicine; Referring Provider Family Medicine; Visit Provider Family Medicine
DX: I48.91 Unspecified atrial fibrillation (principal); E11.49 Type 2 diabetes mellitus with other diabetic neurological complication
CPT/HCPCS: 36415; 80053; 85025

== ENCOUNTER 2023-02-28 08:30 | Outpatient (RCR) | payer MEDICARE, OTHER, SELFPAY ==
[2023-02-14 08:08] VITALS: BP 108/67; PULSE 102; RESP 20; TEMP 36.1; BMI 31.4
--- NOTE | 2023-02-14 08:27 | PCM.WC.HP ---
History of Present Illness Date of Service: 02/14/23 Chief Complaint: Left Leg Ulcer History of Wound: Mr. Turcios is a 72-year-old with PMHx of of diabetes mellitus type 2, venous insufficiency bilateral lower extremity, history of multiple ulcerations, HTN, HLD, COPD, A-fib, CHF. He presents back to the wound care center today accompanied by his for nonhealing left lower extremity ulceration. states he has either bumped his leg on something or picked at some skin on the front of his leg creating a new wound. They state they have been following with Dr. Anderson in [place] as well as PCP Dr. Olguin. They state occasional use of mupirocin topical ointment but otherwise have not been applying dressings to the site. They state the wound has been present for a few weeks and has not made much progress and thus they were referred to the wound care center for continued wound healing. He denies N/V/F/chills. He has no further complaints. [facility] Medical History Ambulates with cane Anemia Anxiety and depression Back problem Blind Cardiology follow-up encounter Chronic diastolic (congestive) heart failure COPD (chronic obstructive pulmonary disease) Depression Diabetes DM type 2 (diabetes mellitus, type 2) Essential (primary) hypertension Former smoker Head trauma High cholesterol History of atrial fibrillation History of echocardiogram History of edema History of Holter monitoring Hx of transfusion of whole blood Hyperlipidemia Hypothyroidism Infected cyst of skin Injury of head and neck Insulin dependent diabetes mellitus Left ventricular diastolic dysfunction Longstanding persistent atrial fibrillation Obesity (BMI 30-39.9) Open wound of back without complication Poorly controlled type 2 diabetes mellitus Right bundle branch block (RBBB) Sepsis Shortness of breath on exertion Thyroid disease Ulcer of left lower extremity with fat layer exposed Venous insufficiency of both lower extremities Wears dentures Home Medications pravastatin 40 mg tablet 40 mg PO QHS cholesterol 07/30/14 [History Last Taken 02/12/20 16:30] rivaroxaban 20 mg tablet (Xarelto) 20 mg PO DINNER blood thinner 08/16/19 [History Last Taken 01/02/22] metformin 500 mg tablet,extended release 24 hr 1,000 mg PO DAILY 03/02/20 [History Last Taken Unknown] insulin glargine 100 unit/mL subcutaneous solution (Lantus U-100 Insulin) 10 unit subcut 0800 10/05/21 [History Last Taken Unknown] PEP device #1 ea 11/14/21 [Rx Last Taken Unknown] levothyroxine 150 mcg tablet 150 mcg PO DAILY 11/14/21 [History Last Taken 01/05/22] venlafaxine 75 mg capsule,extended release 24 hr 150 mg PO QAM 11/14/21 [History Last Taken Unknown] cholecalciferol (vitamin D3) 25 mcg (1,000 unit) capsule (Vitamin D3) 25 mcg PO DAILY 01/02/22 [History Last Taken Unknown] ferrous sulfate 325 mg (65 mg iron) tablet 325 mg PO DAILY 01/02/22 [History Last Taken Unknown] tramadol 50 mg tablet 50 mg PO Q6H PRN pain #14 tabs 01/05/22 [Rx Last Taken Unknown] albuterol sulfate 90 mcg/actuation aerosol inhaler 2 puff inhalation Q6H PRN shortness of breath or wheezing #8.5 grams 09/10/22 [Rx Last Taken Unknown] insulin lispro 100 unit/mL subcutaneous pen (Humalog KwikPen (U-100) Insulin) 12 unit subcut BID 09/10/22 [History Last Taken Unknown] furosemide 40 mg tablet 20 mg PO Q OTHER DAY 12/13/22 [History Last Taken Unknown] Allergy/AdvReac Type Severity Reaction Status Date / Time shellfish derived Allergy Hives Verified 02/14/23 08:28 Family History Mother Cancer Surgical History H/O hernia repair History of inguinal hernia repair Hx of cataract surgery Hx of excision of dermoid cyst (~01/2022) Social History Smoking Status: Former smoker quit date: 06/03/09 second hand exposure: No alcohol intake: never substance use type: does not use ROS Constitutional Constitutional: Denies anorexia, change in weight, chills or fever(s) Eyes Eyes: Denies blurry vision, change in vision or double vision ENT HEENT: Denies dysphagia, nasal congestion, nasal discharge or sore throat Cardiovascular Cardiovascular: Denies chest pain, claudication, dyspnea or palpitations Respiratory/Chest Respiratory/Chest: Denies cough, pain on inspiration or wheezing Gastrointestinal Gastrointestinal: Denies abdominal pain, constipation, diarrhea, nausea or vomiting Genitourinary Genitourinary: Denies dysuria, hematuria or urinary frequency Musculoskeletal Musculoskeletal: Denies joint pain, joint stiffness or joint swelling Integumentary Integumentary: Denies lesions, pruritus or rash Neurologic Neurologic: Denies dizziness, numbness or seizures Psychiatric Psychiatric: Denies anxiety Endocrine Endocrinology: Denies cold intolerance or heat intolerance Hematologic/Lymphatic Hematologic/Lymphatic: Denies lymphadenopathy Vital Signs Vital Signs Vital Signs: 02/14/23 08:08 Temperature 97 F L Temperature Source Temporal Pulse Rate 102 H Respiratory Rate 20 H Blood Pressure 108/67 Blood Pressure Mean 80 Blood Pressure Source Monitor Weight Weight: 114.015 kg Body Mass Index (BMI) 31.4 Physical Exam Const alert, oriented x3 and no apparent distress General Appearance: cooperative HEENT normocephalic Eyes Eyes Narrative: Patient is blind, wearing dark glasses today Neck General: normal visual inspection Lymph Lymphatic: no lymphadenopathy noted and no lymphedema noted Resp normal respiratory effort Cardio regular rate and regular rhythm Extremity normal capillary refill, no joint enlargement, no calf tenderness and no pedal edema Extremity Narrative: DP pulses palpable and PT pulses weakly palpable bilateral. CFT less than 3 seconds to the digits bilateral. Hair growth absent to digits of foot bilateral. Dermatological: Skin is thin and demonstrating trophic changes bilateral lower extremity. Skin is excessively dry with peeling/flaking consistent with diabetic autonomic neuropathy and microvascular disease. There is an ulceration noted to the anterior aspect overlying the tibial crest with 80% mixed yellow fibrotic tissue and 20% red granular tissue at wound margin. There is crusting secondary to serous drainage at wound margin. Musculoskeletal: Muscle strength 5 of 5 age-appropriate. Decreased ankle range of motion in dorsiflexion with the knee extended without pain or crepitus bilateral. Decreased range of motion of the first metatarsophalangeal joint without pain or crepitus bilateral. There is hammertoe deformity of lesser digits bilateral without pain to palpation. Skin no rashes or lesions noted and no jaundice Neuro moves all extremities Debridement Note Debridement Note Wound debrided: Left anterior lower extremity Laterality: Left Wound Grade/Stage: Miguel stage I Type of Debridement: Excisional debridement and Selective debridement Anesthesia Used: 5% Lidocaine Gel Depth: Down to and including healthy tissue and in the subcutaneous layer Percentage of wound debrided: 100 Instrument Used: 5mm curette Tissue Removed: Fibrous, devitalized subcutaneous, biofilm, slough Severity: Fat Layer Exposed Amount of bleeding with debridement: Mild Bleeding Controlled with: Compression and gauze Patient tolerated procedure: Patient tolerated procedure well Post-Debridement Measurements and Additional Note: Post-Debridement Measurements/Treatment BRYANNA - Nurse 1 - General Ulcer Assessment Start: 02/14/23 08:08 Freq: Status: Active Protocol: OLIVIA Activity Type Activity Date Activity User E-sign Co-sign Detail Recorded Client Recorded Date Recorded By Document 02/14/23 08:08 DL [id number] 02/14/23 08:25 DL 02/14/23 08:08 - Today's Visit Information Type of service Initial Visit Arrival Mode Ambulatory,Cane Transfer Assistance Manual Transfer Assist (Other) x2 Patient Identification Verified (Name & Yes ) Patient Requires Transmission-Based No Precautions Finger Stick Blood Sugar(mg/dl) (if 187 indicated): Blood Sugar Stated by Patient Height and Weight Height 6 ft 3 in Weight 114.015 kg Weight in Pounds 251.4 lbs Weight Measurement Method Estimated by Patient Body Mass Index (BMI) 31.4 BMI Classification Obese BSA - Genna 2.42 Vital Signs Temperature (97.8 F-99.1 F) 97 F L Temperature Source Temporal Pulse Rate (60-100) 102 H Pulse Location Monitor Respiratory Rate (12-18) 20 H Respiratory rate source Observation Blood Pressure (90/60-120/80) 108/67 Blood Pressure Mean 80 Source Monitor History Since Last Visit- (Skip if this is Patient's initial visit) Left Footwear Regular Shoe Right Footwear Regular Shoe Pain Scale: 0-10 Numeric Is Patient Pain Free? Yes Lower Extremity Assessment/ Foot Assessment/ Toe Nail Assessment Left -Posterior Tibial Palpable Yes -Dorsalis Pedis Palpable Yes -Extremity Color Mottled, Hyperpigmented, Hemosiderin -Hair Growth on Legs No -Hair Growth on Toes No -Temperature of Extremity Warm -Capillary Refill Greater than 3 Seconds -Dependent Rubor No -Blanched when Elevated No -Lipodermatosclerosis No -Other Deformity No -Prior Foot Ulcer No -Charcot Joint No -Prior Amputation No -Thick Yes -Discolored Yes -Deformed Yes -Improper Length & Hygeine No Right -Posterior Tibial Palpable Yes -Dorsalis Pedis Palpable Yes -Extremity Color Mottled, Hyperpigmented, Hemosiderin -Hair Growth on Legs No -Hair Growth on Toes No -Temperature of Extremity Warm -Capillary Refill Greater than 3 Seconds -Dependent Rubor No -Blanched when Elevated No -Lipodermatosclerosis No -Other Deformity No -Prior Foot Ulcer No -Charcot Joint No -Thick Yes -Discolored Yes -Deformed Yes -Improper Length & Hygeine No WC - Nurse 1 - General Ulcer Measurement Start: 02/14/23 08:08 Freq: Status: Active Protocol: Activity Type Activity Date Activity User E-sign Co-sign Detail Recorded Client Recorded Date Recorded By Document 02/14/23 08:08 DL [id number] 02/14/23 08:25 DL 02/14/23 08:08 Wound Center Nurse 1 #8 L Leon -Current Size (cm) - Length 1.8 -Current Size (cm) - Width 2.2 -Current Size (cm) - Depth 0.2 -Total Square Cm 3.96 -Photo Taken Yes -Classification - Thickness Full Thickness without Exposed Support Structure -Exudate Amt Medium -Exudate Type Serosanguineous -Wound Margin Distinct, Outline Attached -Granulation Amt Small (1-33%) -Granulation Quality [place] -Necrosis Amt Large (67-100%) -Necrotic Tissue Type Adherent Slough -Structure Exposed N/A -Texture (Jada-wound Skin Appearance) Scarring -Moisture (Jada-wound Skin Appearance) Dry/Scaly -Color (Jada-wound Skin Appearance) Hemosiderin Staining -Temperature (Jada-wound Skin No Abnormality Appearance) (Pt Warm) -Tenderness on Palpation (Jada-wound No Skin Appearance) -Ulcer Cleansing Soap and Water -Foul Odor after Cleansing No -Anesthetic Used 5% Lidocaine Gel Right Calf (cm) 43 Right Ankle (cm) 23 Left Calf (cm) 38.5 Left Ankle (cm) 21.7 Assessment/Plan Assessment/Plan (1) Venous insufficiency of both lower extremities: CODE(S): I87.2 - Venous insufficiency (chronic) (peripheral) (2) Ulcer of left lower extremity with fat layer exposed: CODE(S): L97.922 - Non-pressure chronic ulcer of unspecified part of left lower leg with fat layer exposed (3) COPD (chronic obstructive pulmonary disease): CODE(S): J44.9 - Chronic obstructive pulmonary disease, unspecified (4) DM type 2 (diabetes mellitus, type 2): CODE(S): E11.9 - Type 2 diabetes mellitus without complications QUALIFIERS: Diabetes mellitus rn long term care insulin use: with rn long term care use Diabetes mellitus complication status: with other specified complication Qualified Code(s): E11.69 - Type 2 diabetes mellitus with other specified complication; Z79.4 - longterm (current) use of insulin (5) Hyperlipidemia: CODE(S): E78.5 - Hyperlipidemia, unspecified QUALIFIERS: Hyperlipidemia type: unspecified Qualified Code(s): E78.5 - Hyperlipidemia, unspecified (6) Essential (primary) hypertension: CODE(S): I10 - Essential (primary) hypertension (7) Chronic diastolic (congestive) heart failure: CODE(S): I50.32 - Chronic diastolic (congestive) heart failure (8) Longstanding persistent atrial fibrillation: CODE(S): I48.11 - Longstanding persistent atrial fibrillation (9) 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 layer exposed: CODE(S): L97.222 - 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 layer exposed (10) Delayed wound healing: CODE(S): T14.8XXD - Other injury of unspecified body region, subsequent encounter PLAN: Plan Patient seen and evaluated I reviewed his previous treatment history by PCP. Patient had followed Dr. Anderson. Ulceration underwent debridement as noted in the clinical panel above. Ulceration to the left anterior lower extremity measures 1.9 cm x 2.5 cm x 0.2 cm. No signs of infection. Sunni applied to wound bed with dry sterile dressing. They will change dressing daily. At this time due to previous local wound care treatment with delayed wound healing we will seek approval for advanced wound care product for application at next visit. Discussed continued diabetic diet to ensure proper glucose control. Recent A1c 6.4%. Discussed that this is a good standing for control of his diabetes and will aid in wound healing. Discussed with to aid in daily foot checks as her is blind. Discussed wearing shoe gear at all times and to never go barefoot. Socks include barefoot. They voiced understanding of this today. Recommend continued follow-up with PCP for continued diabetic management. Discussed adequate protein intake to continue to aid in wound healing. Also discussed Negrito supplementation to aid in wound healing. Discussed signs and symptoms with the pertaining to infection. Discussed if she notices increasing redness about the wound margin spreading up the leg, any purulent drainage from the wound site, increasing foul odor from the wound, or if he experiences fever greater than 101 degree, nausea, vomiting, chills that these are signs of progressing infection and he needs to report to the ED. They voiced understanding of this today. The following work up and care recommendations were made: Dressing: Sunni and dry sterile dressing. Change daily. Wash: Soap and water Tissue growth optimization: Sunni Offload: Ensure anterior leg is not bumped and discussed no picking at skin sites. Vascular: DP and PT pulses palpable with adequate capillary fill time. However skin demonstrates trophic changes consistent with microvascular disease. Edema: No edema currently, has history of chronic venous stasis. Recommend continued compression stocking. Infection: No signs of infection. Pain: May take [id number] Tylenol extra strength for discomfort. Host factors: DM type II, chronic venous stasis, CHF, COPD, blindness I answered all the patient's questions. To return to the wound healing center in 1 week or call sooner if the patient has any questions or concerns.
[2023-02-21 08:31] VITALS: BP 118/63; PULSE 96; RESP 20; TEMP 36.1; BMI 31.4
--- NOTE | 2023-02-21 09:04 | PCM.WC.PN ---
History of Present Illness Date of Service: 02/21/23 Chief Complaint: Left Leg Ulcer History of Wound: Mr. Turcios is a 72-year-old with PMHx of of diabetes mellitus type 2, venous insufficiency bilateral lower extremity, history of multiple ulcerations, HTN, HLD, COPD, A-fib, CHF. He presents back to the wound care center today accompanied by his for nonhealing left lower extremity ulceration. states he has either bumped his leg on something or picked at some skin on the front of his leg creating a new wound. They state they have been following with Dr. Anderson in [place] as well as PCP Dr. Olguin. They state occasional use of mupirocin topical ointment but otherwise have not been applying dressings to the site. They state the wound has been present for a few weeks and has not made much progress and thus they were referred to the wound care center for continued wound healing. He denies N/V/F/chills. He has no further complaints. Subjective Subjective Patient is a 72-year-old male who follows up to the wound care center today for a left lower extremity ulceration. His states she has been applying Sunni daily to the site and changing dressings as instructed. He denies constitutional symptoms today. Denies further complaints today. Objective Data Objective Data Vital Signs: Vital Signs Temp Pulse Resp BP 96.9 F L 96 20 H 118/63 02/21/23 08:31 02/21/23 08:31 02/21/23 08:31 02/21/23 08:31 Weight: 114.015 kg Body Mass Index (BMI) 31.4 Physical Exam Const alert, oriented x3 and no apparent distress General Appearance: cooperative HEENT normocephalic Eyes Eyes Narrative: Patient is blind, wearing dark glasses today Neck General: normal visual inspection Lymph Lymphatic: no lymphadenopathy noted and no lymphedema noted Resp normal respiratory effort Cardio regular rate and regular rhythm Extremity normal capillary refill, no joint enlargement, no calf tenderness and no pedal edema Extremity Narrative: DP pulses palpable and PT pulses weakly palpable bilateral. CFT less than 3 seconds to the digits bilateral. Hair growth absent to digits of foot bilateral. Dermatological: Skin is thin and demonstrating trophic changes bilateral lower extremity. Skin is excessively dry with peeling/flaking consistent with diabetic autonomic neuropathy and microvascular disease. There is an ulceration noted to the anterior aspect overlying the tibial crest with 80% mixed yellow fibrotic tissue and 20% red granular tissue at wound margin. There is crusting secondary to serous drainage at wound margin. Musculoskeletal: Muscle strength 5 of 5 age-appropriate. Decreased ankle range of motion in dorsiflexion with the knee extended without pain or crepitus bilateral. Decreased range of motion of the first metatarsophalangeal joint without pain or crepitus bilateral. There is hammertoe deformity of lesser digits bilateral without pain to palpation. Skin no rashes or lesions noted and no jaundice Neuro moves all extremities Debridement Note Debridement Note Wound debrided: Left lower extremity Laterality: Left Wound Grade/Stage: Miguel stage I Type of Debridement: Excisional debridement Anesthesia Used: 5% Lidocaine Gel Depth: Down to and including healthy tissue and in the subcutaneous layer Percentage of wound debrided: 100 Instrument Used: 5mm curette Tissue Removed: Fibrous, devitalized subcutaneous, biofilm, slough Severity: Fat Layer Exposed Amount of bleeding with debridement: Mild Bleeding Controlled with: Compression and gauze Patient tolerated procedure: Patient tolerated procedure well Post-Debridement Measurements and Additional Note: Post-Debridement Measurements/Treatment WC - Nurse 1 - General Ulcer Assessment Start: 02/14/23 08:08 Freq: Status: Active Protocol: OLIVIA Activity Type Activity Date Activity User E-sign Co-sign Detail Recorded Client Recorded Date Recorded By Document 02/14/23 08:08 DL [id number] 02/14/23 08:25 DL Edit Result 02/14/23 08:08 DL (1) [id number] 02/14/23 08:44 DL Document 02/21/23 08:31 DL Desktop 02/21/23 08:34 DL (1) Preferred language => Khmer Able to Read => No: blind Able to Write => No: blind Communication Tools => None Right Hearing Abillity => Normal Left Hearing Abillity => Normal Visual Assistive Devices => Legally Blind Preferences => Verbal Barriers to Learning => None Readiness To Learn => Good Willingness to Engage in Self Management => Med Activies Readiness to Engage in Self Management => Med Activities Anxiety Level => Calm Cooperation => Cooperative Perception => Coherent Interest in Health Problem => Asks Questions Education Importance => Acknowledges Need Does Patient Smoke tobacco or other => No substances Smoking Status => Former smoker Is Patient Diabetic => Yes Recent Decline in Ability to Perform => Denies Any => Declines Cultural/Yazdanism Needs that may affect => No Treatment Plan Would you allow our hospital general counsel to => No meet you for the purpose of spiritual/ emotional support? Morphology Teacher to contact place of lutheran => No Discharge Instructions - Person Taught => Patient, => Significant Other Dressing Your Wound - Person Taught => Patient, => Significant Other *Welcome to the Wound Center - Person Taught => Patient, => Significant Other 02/14/23 02/21/23 08:08 08:31 WC - Today's Visit Information Type of service Initial Visit Follow-up Visit (Physician/[facility] ) Arrival Mode Ambulatory,Cane Ambulatory Transfer Assistance Manual None Transfer Assist (Other) x2 Patient Identification Verified (Name & Yes Yes ) Patient Requires Transmission-Based No No Precautions Finger Stick Blood Sugar(mg/dl) (if 187 137 indicated): Blood Sugar Stated by Stated by Patient Patient Height and Weight Height 6 ft 3 in Weight 114.015 kg Weight in Pounds 251.4 lbs Weight Measurement Method Estimated by Patient Body Mass Index (BMI) 31.4 31.4 BMI Classification Obese Obese BSA - Genna 2.42 Vital Signs Temperature (97.8 F-99.1 F) 97 F L 96.9 F L Temperature Source Temporal Temporal Pulse Rate (60-100) 102 H 96 Pulse Location Monitor Monitor Respiratory Rate (12-18) 20 H 20 H Respiratory rate source Observation Blood Pressure (90/60-120/80) 108/67 118/63 Blood Pressure Mean (mm Hg) 80 81 Source Monitor Monitor History Since Last Visit- (Skip if this is Patient's initial visit) Have you changed medications since your No last visit? Any new allergies or adverse reactions No Had a fall/change in ADL's that may No increase risk of falls Signs or symptoms of abuse and/or No neglect since last visit Have you been in the hospital since your No last visit? Has dressing in place as prescribed Yes Has compression in place as prescribed Yes Has offloadiing in place as prescribed N/A Experienced any changes in pain level or No management Left Footwear Regular Shoe Right Footwear Regular Shoe Pain Scale: 0-10 Numeric Is Patient Pain Free? Yes Yes Lower Extremity Assessment/ Foot Assessment/ Toe Nail Assessment Left -Posterior Tibial Palpable Yes -Dorsalis Pedis Palpable Yes -Extremity Color Mottled, Hyperpigmented, Hemosiderin -Hair Growth on Legs No -Hair Growth on Toes No -Temperature of Extremity Warm -Capillary Refill Greater than 3 Seconds -Dependent Rubor No -Blanched when Elevated No -Lipodermatosclerosis No -Other Deformity No -Prior Foot Ulcer No -Charcot Joint No -Prior Amputation No -Thick Yes -Discolored Yes -Deformed Yes -Improper Length & Hygeine No Right -Posterior Tibial Palpable Yes -Dorsalis Pedis Palpable Yes -Extremity Color Mottled, Hyperpigmented, Hemosiderin -Hair Growth on Legs No -Hair Growth on Toes No -Temperature of Extremity Warm -Capillary Refill Greater than 3 Seconds -Dependent Rubor No -Blanched when Elevated No -Lipodermatosclerosis No -Other Deformity No -Prior Foot Ulcer No -Charcot Joint No -Thick Yes -Discolored Yes -Deformed Yes -Improper Length & Hygeine No Communication Assessment Preferred language Khmer Able to Read No: blind Able to Write No: blind Communication Tools None Right Hearing Abillity Normal Left Hearing Abillity Normal Visual Assistive Devices Legally Blind Teaching Assessment Preferences Verbal Barriers to Learning None Readiness To Learn Good Willingness to Engage in Self Management Med Activies Readiness to Engage in Self Management Med Activities Anxiety Level Calm Cooperation Cooperative Perception Coherent Interest in Health Problem Asks Questions Education Importance Acknowledges Need Does Patient Smoke tobacco or other No substances Smoking Status Former smoker Is Patient Diabetic Yes Functional Assessment Recent Decline in Ability to Perform Denies Any Declines Culture/Yazdanism/Morphology Teacher Cultural/Yazdanism Needs that may affect No Treatment Plan Would you allow our hospital general counsel to No meet you for the purpose of spiritual/ emotional support? Morphology Teacher to contact place of lutheran No Teaching: Wound Center Discharge Instructions -Person Taught Patient, Significant Other Dressing Your Wound -Person Taught Patient, Significant Other *Welcome to the Wound Center -Person Taught Patient, Significant Other WC - Nurse 1 - General Ulcer Measurement Start: 02/14/23 08:08 Freq: Status: Active Protocol: Activity Type Activity Date Activity User E-sign Co-sign Detail Recorded Client Recorded Date Recorded By Document 02/14/23 08:08 DL [id number] 02/14/23 08:25 DL Document 02/21/23 08:31 DL Desktop 02/21/23 08:34 DL 02/14/23 02/21/23 08:08 08:31 Wound Center Nurse 1 #8 L Leon -Current Size (cm) - Length 1.8 1.7 -Current Size (cm) - Width 2.2 2.4 -Current Size (cm) - Depth 0.2 0.2 -Total Square Cm 3.96 4.08 -Photo Taken Yes No -Classification - Thickness Full Thickness without Exposed Support Structure -Exudate Amt Medium Medium -Exudate Type Serosanguineous Serosanguineous -Wound Margin Distinct, Distinct, Outline Outline Attached Attached -Granulation Amt Small (1-33%) Medium (34-66%) -Granulation Quality Hana Red -Necrosis Amt Large (67-100%) Medium (34-66%) -Necrotic Tissue Type Adherent Slough Adherent Slough -Structure Exposed N/A N/A -Texture (Jada-wound Skin Appearance) Scarring Scarring -Moisture (Jada-wound Skin Appearance) Dry/Scaly Dry/Scaly -Color (Jada-wound Skin Appearance) Hemosiderin Hemosiderin Staining Staining -Temperature (Jada-wound Skin No Abnormality No Abnormality Appearance) (Pt Warm) (Pt Warm) -Tenderness on Palpation (Jada-wound No No Skin Appearance) -Ulcer Cleansing Soap and Water Soap and Water -Foul Odor after Cleansing No No -Anesthetic Used 5% Lidocaine 5% Lidocaine Gel Gel Right Calf (cm) 43 Right Ankle (cm) 23 Left Calf (cm) 38.5 Left Ankle (cm) 21.7 WC - Nurse 2 - General Ulcer CM Notes Start: 02/14/23 08:08 Freq: Status: Active Protocol: Activity Type Activity Date Activity User E-sign Co-sign Detail Recorded Client Recorded Date Recorded By Document 02/14/23 12:48 PL [id number] 02/14/23 12:50 PL 02/14/23 12:48 Wound Center Nurse 2 -Time 08:55 -Correct Patient Yes -Correct Side, Site, Position Yes -Correct Procedure Yes -Procedure Performed Yes -Type of Procedure Debridement -Clinical Debridement Subcutaneous -Tissue Removed Subcutaneous -Post Debridement (cm) - Length 1.9 -Post Debridement (cm) - Width 2.5 -Post Debridement (cm) - Depth 0.2 -Total Square (Post) (cm) 4.75 -Area of Debridement (cm) - Length 1.9 -Area of Debridement (cm) - Width 2.5 -Total Square (Area) (cm) 4.75 -Tunneling No -Undermining/Tunneling No -Circular Undermining No -Wound/Ulcer Outcome Not Healed -Ulcer Cleansing Rinsed/ Irrigated with Saline -Foul Odor after Cleansing No -Bioengineered Tissue No -Bleeding Controlled with Pressure -Treatment Response Procedure Tolerated Well -Debridement - Subq, 1st 20sq cm Yes Pain Scale: 0-10 Numeric Is Patient Pain Free? Yes - Nurse 3 - General Ulcer D/C NN Start: 02/14/23 08:08 Freq: Status: Active Protocol: Activity Type Activity Date Activity User E-sign Co-sign Detail Recorded Client Recorded Date Recorded By Document 02/14/23 09:08 [id number] 02/14/23 09:16 KW Document 02/21/23 09:01 DL Desktop 02/21/23 09:02 DL 02/14/23 02/21/23 09:08 09:01 Wound Care Center Nurse 3 #8 L Leon -Ulcer Cleansing Rinsed/ Irrigated with Saline -Foul Odor after Cleansing No No -Primary Dressing Applied Mepilex Border, Promogran Sunni Matter -Other Dressing epifix -Primary Dressing Covered/Secured with Dry Gauze & Roll Gauze, Secured with Tape -Mepilex Border 2 -Promogran Sunni Matter 1 Left -Tubular Bandage Single Layer -Size of Tubigrip Used Size D -Size D ($) 1 Treatment Response Procedure Procedure Tolerated Well Tolerated Well Pain Scale: 0-10 Numeric Is Patient Pain Free? Yes Yes - Visit Discharge Discharge Condition Stable Stable Ambulatory Status Ambulatory,Cane Ambulatory Transportation Private Auto Private Auto Accompanied by Assessment/Plan Assessment/Plan (1) Venous insufficiency of both lower extremities: CODE(S): I87.2 - Venous insufficiency (chronic) (peripheral) (2) Ulcer of left lower extremity with fat layer exposed: CODE(S): L97.922 - Non-pressure chronic ulcer of unspecified part of left lower leg with fat layer exposed (3) COPD (chronic obstructive pulmonary disease): CODE(S): J44.9 - Chronic obstructive pulmonary disease, unspecified (4) DM type 2 (diabetes mellitus, type 2): CODE(S): E11.9 - Type 2 diabetes mellitus without complications QUALIFIERS: Diabetes mellitus complication status: with other specified complication Diabetes mellitus nursing home insulin use: with nursing home use Qualified Code(s): E11.69 - Type 2 diabetes mellitus with other specified complication; 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 (5) Hyperlipidemia: CODE(S): E78.5 - Hyperlipidemia, unspecified QUALIFIERS: Hyperlipidemia type: unspecified Qualified Code(s): E78.5 - Hyperlipidemia, unspecified (6) Essential (primary) hypertension: CODE(S): I10 - Essential (primary) hypertension (7) Chronic diastolic (congestive) heart failure: CODE(S): I50.32 - Chronic diastolic (congestive) heart failure (8) Longstanding persistent atrial fibrillation: CODE(S): I48.11 - Longstanding persistent atrial fibrillation (9) 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 layer exposed: CODE(S): L97.222 - 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 layer exposed (10) Delayed wound healing: CODE(S): T14.8XXD - Other injury of unspecified body region, subsequent encounter PLAN: Plan Patient seen and evaluated I reviewed his previous treatment history by PCP. Patient had followed Dr. Anderson. Ulceration underwent debridement as noted in the clinical panel above. Ulceration to the left anterior lower extremity measures 1.7 cm x 2.3 cm x 0.2 cm. No signs of infection. EpiFix graft #1 applied to wound bed. Site dressed with Adaptic touch and anchored with Steri-Strips then dressed with dry sterile dressing. He was instructed to not get the dressing wet. They are to change outer layer as needed. Wound does demonstrate some decrease in size from previous visit. Discussed continued diabetic diet to ensure proper glucose control. Recent A1c 6.4%. Discussed that this is a good standing for control of his diabetes and will aid in wound healing. Discussed with to aid in daily foot checks as her is blind. Discussed wearing shoe gear at all times and to never go barefoot. Socks include barefoot. They voiced understanding of this today. Recommend continued follow-up with PCP for continued diabetic management. Discussed adequate protein intake to continue to aid in wound healing. Also discussed Negrito supplementation to aid in wound healing. Discussed signs and symptoms with the pertaining to infection. Discussed if she notices increasing redness about the wound margin spreading up the leg, any purulent drainage from the wound site, increasing foul odor from the wound, or if he experiences fever greater than 101 degree, nausea, vomiting, chills that these are signs of progressing infection and he needs to report to the ED. They voiced understanding of this today. The following work up and care recommendations were made: Dressing: EpiFix, Adaptic touch, Steri-Strips, dry sterile dressing. Change outer dressing as needed Wash: Do not get wet Tissue growth optimization: EpiFix Offload: Ensure anterior leg is not bumped and discussed no picking at skin sites. Vascular: DP and PT pulses palpable with adequate capillary fill time. However skin demonstrates trophic changes consistent with microvascular disease. Edema: No edema currently, has history of chronic venous stasis. Recommend continued compression stocking. Infection: No signs of infection. Pain: May take [id number] Tylenol extra strength for discomfort. Host factors: DM type II, chronic venous stasis, CHF, COPD, blindness I answered all the patient's questions. To return to the wound healing center in 1 week or call sooner if the patient has any questions or concerns.
[2023-02-28 08:22] VITALS: BP 124/77; PULSE 108; RESP 20; TEMP 35.5; BMI 31.4
--- NOTE | 2023-02-28 08:33 | PCM.WC.PN ---
History of Present Illness Date of Service: 02/28/23 Chief Complaint: Left Leg Ulcer History of Wound: Mr. Turcios is a 72-year-old with PMHx of of diabetes mellitus type 2, venous insufficiency bilateral lower extremity, history of multiple ulcerations, HTN, HLD, COPD, A-fib, CHF. He presents back to the wound care center today accompanied by his for nonhealing left lower extremity ulceration. states he has either bumped his leg on something or picked at some skin on the front of his leg creating a new wound. They state they have been following with Dr. Anderson in [place] as well as PCP Dr. Olguin. They state occasional use of mupirocin topical ointment but otherwise have not been applying dressings to the site. They state the wound has been present for a few weeks and has not made much progress and thus they were referred to the wound care center for continued wound healing. He denies N/V/F/chills. He has no further complaints. Subjective Subjective Patient is a 72-year-old male who follows up to the wound care center today for a left lower extremity ulceration. His states she has left graft in place and is only changing outer dressings as needed. He denies constitutional symptoms today. Denies further complaints today. Objective Data Objective Data Vital Signs: Vital Signs Temp Pulse Resp BP 95.9 F L 108 H 20 H 124/77 H 02/28/23 08:22 02/28/23 08:22 02/28/23 08:22 02/28/23 08:22 Weight: 114.015 kg Body Mass Index (BMI) 31.4 Physical Exam Const alert, oriented x3 and no apparent distress General Appearance: cooperative HEENT normocephalic Eyes Eyes Narrative: Patient is blind, wearing dark glasses today Neck General: normal visual inspection Lymph Lymphatic: no lymphadenopathy noted and no lymphedema noted Resp normal respiratory effort Cardio regular rate and regular rhythm Extremity normal capillary refill, no joint enlargement, no calf tenderness and no pedal edema Extremity Narrative: DP pulses palpable and PT pulses weakly palpable bilateral. CFT less than 3 seconds to the digits bilateral. Hair growth absent to digits of foot bilateral. Dermatological: Skin is thin and demonstrating trophic changes bilateral lower extremity. Skin is excessively dry with peeling/flaking consistent with diabetic autonomic neuropathy and microvascular disease. There is an ulceration noted to the anterior aspect overlying the tibial crest with 80% mixed yellow fibrotic tissue and 20% red granular tissue at wound margin. There is crusting secondary to serous drainage at wound margin. Musculoskeletal: Muscle strength 5 of 5 age-appropriate. Decreased ankle range of motion in dorsiflexion with the knee extended without pain or crepitus bilateral. Decreased range of motion of the first metatarsophalangeal joint without pain or crepitus bilateral. There is hammertoe deformity of lesser digits bilateral without pain to palpation. Skin no rashes or lesions noted and no jaundice Neuro moves all extremities Debridement Note Debridement Note Wound debrided: Left lower extremity Laterality: Left Wound Grade/Stage: Miguel stage I Type of Debridement: Excisional debridement Anesthesia Used: 5% Lidocaine Gel Depth: Down to and including healthy tissue and in the subcutaneous layer Percentage of wound debrided: 100 Instrument Used: 5mm curette Tissue Removed: Fibrous, devitalized subcutaneous, biofilm, slough Severity: Fat Layer Exposed Amount of bleeding with debridement: Mild Bleeding Controlled with: Compression and gauze Patient tolerated procedure: Patient tolerated procedure well Post-Debridement Measurements and Additional Note: Post-Debridement Measurements/Treatment WC - Nurse 1 - General Ulcer Assessment Start: 02/14/23 08:08 Freq: Status: Active Protocol: OLIVIA Activity Type Activity Date Activity User E-sign Co-sign Detail Recorded Client Recorded Date Recorded By Document 02/14/23 08:08 DL [id number] 02/14/23 08:25 DL Edit Result 02/14/23 08:08 DL (1) [id number] 02/14/23 08:44 DL Document 02/21/23 08:31 DL Desktop 02/21/23 08:34 DL Document 02/28/23 08:22 DL Desktop 02/28/23 08:31 DL (1) Preferred language => Congolese Able to Read => No: blind Able to Write => No: blind Communication Tools => None Right Hearing Abillity => Normal Left Hearing Abillity => Normal Visual Assistive Devices => Legally Blind Preferences => Verbal Barriers to Learning => None Readiness To Learn => Good Willingness to Engage in Self Management => Med Activies Readiness to Engage in Self Management => Med Activities Anxiety Level => Calm Cooperation => Cooperative Perception => Coherent Interest in Health Problem => Asks Questions Education Importance => Acknowledges Need Does Patient Smoke tobacco or other => No substances Smoking Status => Former smoker Is Patient Diabetic => Yes Recent Decline in Ability to Perform => Denies Any => Declines Cultural/Protestant Needs that may affect => No Treatment Plan Would you allow our hospital portal administrator to => No meet you for the purpose of spiritual/ emotional support? Packaging Technician to contact place of quaker => No Discharge Instructions - Person Taught => Patient, => Significant Other Dressing Your Wound - Person Taught => Patient, => Significant Other *Welcome to the Wound Center - Person Taught => Patient, => Significant Other 02/14/23 02/21/23 02/28/23 08:08 08:31 08:22 WC - Today's Visit Information Type of service Initial Visit Follow-up Visit Follow-up Visit (Physician/FLIGHT ENGINEER PERFORMANCE QUALIFIED (Physician/FLIGHT ENGINEER PERFORMANCE QUALIFIED ) ) Arrival Mode Ambulatory,Cane Ambulatory Ambulatory, Walker Transfer Assistance Manual None None Transfer Assist (Other) x2 Patient Identification Verified (Name & Yes Yes Yes ) Patient Requires Transmission-Based No No No Precautions Finger Stick Blood Sugar(mg/dl) (if [phone] indicated): Blood Sugar Stated by Stated by Stated by Patient Patient Patient Height and Weight Height 6 ft 3 in Weight 114.015 kg Weight in Pounds 251.4 lbs Weight Measurement Method Estimated by Patient Body Mass Index (BMI) 31.4 31.4 31.4 BMI Classification Obese Obese Obese BSA - Genna 2.42 Vital Signs Temperature (97.8 F-99.1 F) 97 F L 96.9 F L 95.9 F L Temperature Source Temporal Temporal Temporal Pulse Rate (60-100) 102 H 96 108 H Pulse Location Monitor Monitor Monitor Respiratory Rate (12-18) 20 H 20 H 20 H Respiratory rate source Observation Observation Blood Pressure (90/60-120/80) 108/67 118/63 124/77 H Blood Pressure Mean (mm Hg) 80 81 92 Source Monitor Monitor Monitor History Since Last Visit- (Skip if this is Patient's initial visit) Have you changed medications since your No No last visit? Any new allergies or adverse reactions No No Had a fall/change in ADL's that may No No increase risk of falls Signs or symptoms of abuse and/or No No neglect since last visit Have you been in the hospital since your No No last visit? Has dressing in place as prescribed Yes Yes Has compression in place as prescribed Yes Yes Has offloadiing in place as prescribed N/A N/A Experienced any changes in pain level or No No management Left Footwear Regular Shoe Right Footwear Regular Shoe Pain Scale: 0-10 Numeric Is Patient Pain Free? Yes Yes Yes Lower Extremity Assessment/ Foot Assessment/ Toe Nail Assessment Left -Posterior Tibial Palpable Yes -Dorsalis Pedis Palpable Yes -Extremity Color Mottled, Hyperpigmented, Hemosiderin -Hair Growth on Legs No -Hair Growth on Toes No -Temperature of Extremity Warm -Capillary Refill Greater than 3 Seconds -Dependent Rubor No -Blanched when Elevated No -Lipodermatosclerosis No -Other Deformity No -Prior Foot Ulcer No -Charcot Joint No -Prior Amputation No -Thick Yes -Discolored Yes -Deformed Yes -Improper Length & Hygeine No Right -Posterior Tibial Palpable Yes -Dorsalis Pedis Palpable Yes -Extremity Color Mottled, Hyperpigmented, Hemosiderin -Hair Growth on Legs No -Hair Growth on Toes No -Temperature of Extremity Warm -Capillary Refill Greater than 3 Seconds -Dependent Rubor No -Blanched when Elevated No -Lipodermatosclerosis No -Other Deformity No -Prior Foot Ulcer No -Charcot Joint No -Thick Yes -Discolored Yes -Deformed Yes -Improper Length & Hygeine No Communication Assessment Preferred language Congolese Able to Read No: blind Able to Write No: blind Communication Tools None Right Hearing Abillity Normal Left Hearing Abillity Normal Visual Assistive Devices Legally Blind Teaching Assessment Preferences Verbal Barriers to Learning None Readiness To Learn Good Willingness to Engage in Self Management Med Activies Readiness to Engage in Self Management Med Activities Anxiety Level Calm Cooperation Cooperative Perception Coherent Interest in Health Problem Asks Questions Education Importance Acknowledges Need Does Patient Smoke tobacco or other No substances Smoking Status Former smoker Is Patient Diabetic Yes Functional Assessment Recent Decline in Ability to Perform Denies Any Declines Culture/Protestant/Packaging Technician Cultural/Protestant Needs that may affect No Treatment Plan Would you allow our hospital portal administrator to No meet you for the purpose of spiritual/ emotional support? Packaging Technician to contact place of quaker No Teaching: Wound Center Discharge Instructions -Person Taught Patient, Significant Other Dressing Your Wound -Person Taught Patient, Significant Other *Welcome to the Wound Center -Person Taught Patient, Significant Other WC - Nurse 1 - General Ulcer Measurement Start: 02/14/23 08:08 Freq: Status: Active Protocol: Activity Type Activity Date Activity User E-sign Co-sign Detail Recorded Client Recorded Date Recorded By Document 02/14/23 08:08 DL [id number] 02/14/23 08:25 DL Document 02/21/23 08:31 DL Desktop 02/21/23 08:34 DL Document 02/28/23 08:22 DL Desktop 02/28/23 08:31 DL 02/14/23 02/21/23 02/28/23 08:08 08:31 08:22 Wound Center Nurse 1 #8 L Leon -Current Size (cm) - Length 1.8 1.7 1.7 -Current Size (cm) - Width 2.2 2.4 1.8 -Current Size (cm) - Depth 0.2 0.2 0.2 -Total Square Cm 3.96 4.08 3.06 -Photo Taken Yes No -Classification - Thickness Full Thickness without Exposed Support Structure -Exudate Amt Medium Medium Medium -Exudate Type Serosanguineous Serosanguineous Serosanguineous -Wound Margin Distinct, Distinct, Distinct, Outline Outline Outline Attached Attached Attached -Granulation Amt Small (1-33%) Medium (34-66%) Medium (34-66%) -Granulation Quality [place] -Necrosis Amt Large (67-100%) Medium (34-66%) Medium (34-66%) -Necrotic Tissue Type Adherent Slough Adherent Slough Adherent Slough -Structure Exposed N/A N/A N/A -Texture (Jada-wound Skin Appearance) Scarring Scarring Scarring -Moisture (Jada-wound Skin Appearance) Dry/Scaly Dry/Scaly Dry/Scaly -Color (Jada-wound Skin Appearance) Hemosiderin Hemosiderin Hemosiderin Staining Staining Staining -Temperature (Jada-wound Skin No Abnormality No Abnormality No Abnormality Appearance) (Pt Warm) (Pt Warm) (Pt Warm) -Tenderness on Palpation (Jada-wound No No No Skin Appearance) -Ulcer Cleansing Soap and Water Soap and Water Soap and Water -Foul Odor after Cleansing No No No -Anesthetic Used 5% Lidocaine 5% Lidocaine 5% Lidocaine Gel Gel Gel Right Calf (cm) 43 Right Ankle (cm) 23 Left Calf (cm) 38.5 38.2 Left Ankle (cm) 21.7 23 WC - Nurse 2 - General Ulcer CM Notes Start: 02/14/23 08:08 Freq: Status: Active Protocol: Activity Type Activity Date Activity User E-sign Co-sign Detail Recorded Client Recorded Date Recorded By Document 02/14/23 12:48 PL [id number] 02/14/23 12:50 PL Document 02/21/23 11:55 PL [id number] 02/21/23 11:57 PL 02/14/23 02/21/23 12:48 11:55 Wound Center Nurse 2 #8 L Leon -Time 08:55 08:45 -Correct Patient Yes Yes -Correct Side, Site, Position Yes Yes -Correct Procedure Yes Yes -Procedure Performed Yes Yes -Type of Procedure Debridement Debridement -Clinical Debridement Subcutaneous Subcutaneous -Tissue Removed Subcutaneous Subcutaneous -Post Debridement (cm) - Length 1.9 1.7 -Post Debridement (cm) - Width 2.5 2.3 -Post Debridement (cm) - Depth 0.2 0.2 -Total Square (Post) (cm) 4.75 3.91 -Area of Debridement (cm) - Length 1.9 1.7 -Area of Debridement (cm) - Width 2.5 2.3 -Total Square (Area) (cm) 4.75 3.91 -Tunneling No No -Undermining/Tunneling No No -Circular Undermining No No -Wound/Ulcer Outcome Not Healed Not Healed -Ulcer Cleansing Rinsed/ Rinsed/ Irrigated with Irrigated with Saline Saline -Foul Odor after Cleansing No No -Bioengineered Tissue No Yes -Type of Bioengineered Tissue Epifix 18mm Disc -Expiration Date 11/02/27 -Product Lot Number [id number] -Percent Used 100 -Bleeding Controlled with Pressure Pressure -Treatment Response Procedure Procedure Tolerated Well Tolerated Well -Debridement - Subq, 1st 20sq cm Yes No -Apply Skin Sub - 1st 25 sq cm - Legs 1 -Epifix 18mm Disc 3 Pain Scale: 0-10 Numeric Is Patient Pain Free? Yes Yes WC - Nurse 3 - General Ulcer D/C NN Start: 02/14/23 08:08 Freq: Status: Active Protocol: Activity Type Activity Date Activity User E-sign Co-sign Detail Recorded Client Recorded Date Recorded By Document 02/14/23 09:08 KW [id number] 02/14/23 09:16 KW Document 02/21/23 09:01 DL Desktop 02/21/23 09:02 DL 02/14/23 02/21/23 09:08 09:01 Wound Care Center Nurse 3 #8 L Leon -Ulcer Cleansing Rinsed/ Irrigated with Saline -Foul Odor after Cleansing No No -Primary Dressing Applied Mepilex Border, Promogran Sunni Matter -Other Dressing epifix -Primary Dressing Covered/Secured with Dry Gauze & Roll Gauze, Secured with Tape -Mepilex Border 2 -Promogran Sunni Matter 1 Left -Tubular Bandage Single Layer -Size of Tubigrip Used Size D -Size D ($) 1 Treatment Response Procedure Procedure Tolerated Well Tolerated Well Pain Scale: 0-10 Numeric Is Patient Pain Free? Yes Yes WC - Visit Discharge Discharge Condition Stable Stable Ambulatory Status Ambulatory,Cane Ambulatory Transportation Private Auto Private Auto Accompanied by Assessment/Plan Assessment/Plan (1) Venous insufficiency of both lower extremities: CODE(S): I87.2 - Venous insufficiency (chronic) (peripheral) (2) Ulcer of left lower extremity with fat layer exposed: CODE(S): L97.922 - Non-pressure chronic ulcer of unspecified part of left lower leg with fat layer exposed (3) COPD (chronic obstructive pulmonary disease): CODE(S): J44.9 - Chronic obstructive pulmonary disease, unspecified (4) DM type 2 (diabetes mellitus, type 2): CODE(S): E11.9 - Type 2 diabetes mellitus without complications QUALIFIERS: Diabetes mellitus complication status: with other specified complication Diabetes mellitus longterm insulin use: with termite control technician use Qualified Code(s): E11.69 - Type 2 diabetes mellitus with other specified complication; Z79.4 - termite control servicer (current) use of insulin (5) Hyperlipidemia: CODE(S): E78.5 - Hyperlipidemia, unspecified QUALIFIERS: Hyperlipidemia type: unspecified Qualified Code(s): E78.5 - Hyperlipidemia, unspecified (6) Essential (primary) hypertension: CODE(S): I10 - Essential (primary) hypertension (7) Chronic diastolic (congestive) heart failure: CODE(S): I50.32 - Chronic diastolic (congestive) heart failure (8) Longstanding persistent atrial fibrillation: CODE(S): I48.11 - Longstanding persistent atrial fibrillation (9) 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 layer exposed: CODE(S): L97.222 - 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 layer exposed (10) Delayed wound healing: CODE(S): T14.8XXD - Other injury of unspecified body region, subsequent encounter PLAN: Plan Patient seen and evaluated I reviewed his previous treatment history by PCP. Patient had followed Dr. Anderson. Ulceration underwent debridement as noted in the clinical panel above. Ulceration to the left anterior lower extremity measures 1.5 cm x 1.7 cm x 0.2 cm. No signs of infection. EpiFix graft #2 applied to wound bed. Site dressed with Adaptic touch and anchored with Steri-Strips then dressed with dry sterile dressing. He was instructed to not get the dressing wet. They are to change outer layer as needed. Wound does demonstrate reduction in size from previous visit. Discussed continued diabetic diet to ensure proper glucose control. Recent A1c 6.4%. Discussed that this is a good standing for control of his diabetes and will aid in wound healing. Discussed with to aid in daily foot checks as her is blind. Discussed wearing shoe gear at all times and to never go barefoot. Socks include barefoot. They voiced understanding of this today. Recommend continued follow-up with PCP for continued diabetic management. Discussed adequate protein intake to continue to aid in wound healing. Also discussed Negrito supplementation to aid in wound healing. Discussed signs and symptoms with the pertaining to infection. Discussed if she notices increasing redness about the wound margin spreading up the leg, any purulent drainage from the wound site, increasing foul odor from the wound, or if he experiences fever greater than 101 degree, nausea, vomiting, chills that these are signs of progressing infection and he needs to report to the ED. They voiced understanding of this today. The following work up and care recommendations were made: Dressing: EpiFix, Adaptic touch, Steri-Strips, dry sterile dressing. Change outer dressing as needed Wash: Do not get wet Tissue growth optimization: EpiFix Offload: Ensure anterior leg is not bumped and discussed no picking at skin sites. Vascular: DP and PT pulses palpable with adequate capillary fill time. However skin demonstrates trophic changes consistent with microvascular disease. Edema: No edema currently, has history of chronic venous stasis. Recommend continued compression stocking. Infection: No signs of infection. Pain: May take [id number] Tylenol extra strength for discomfort. Host factors: DM type II, chronic venous stasis, CHF, COPD, blindness I answered all the patient's questions. To return to the wound healing center in 1 week or call sooner if the patient has any questions or concerns.
== END 2023-03-02 23:59 | disposition home or self-care (01) ==
LOC: WC 08:30
PROVIDERS: PCP Family Medicine; Referring Provider Family Medicine; Visit Provider Student in an Organized Health Care Education/Training Program
DX: E11.622 Type 2 diabetes mellitus with other skin ulcer (principal); L97.222 Non-pressure chronic ulcer of left calf with fat layer exposed; J44.9 Chronic obstructive pulmonary disease, unspecified; I11.0 Hypertensive heart disease with heart failure; I50.32 Chronic diastolic (congestive) heart failure; E11.59 Type 2 diabetes mellitus with other circulatory complications; I48.11 Longstanding persistent atrial fibrillation; Z79.4 Long term (current) use of insulin; E78.00 Pure hypercholesterolemia, unspecified; I87.2 Venous insufficiency (chronic) (peripheral); Z79.01 Long term (current) use of anticoagulants; Z87.891 Personal history of nicotine dependence; Z79.899 Other long term (current) drug therapy
CPT/HCPCS: 11042; 15271; 99213; Q4186; G0463

== ENCOUNTER 2023-03-28 08:15 | Outpatient (RCR) | payer MEDICARE, OTHER, SELFPAY ==
[2023-03-03 00:27] VITALS: BP 124/77; PULSE 108; RESP 20; TEMP 35.5; BMI 31.4
[2023-03-07 08:26] VITALS: BP 138/78; PULSE 91; RESP 18; TEMP 35.9; BMI 31.4
--- NOTE | 2023-03-07 09:30 | PCM.WC.PN ---
History of Present Illness Date of Service: 03/07/23 Chief Complaint: Left Leg Ulcer History of Wound: Mr. Turcios is a 72-year-old with PMHx of of diabetes mellitus type 2, venous insufficiency bilateral lower extremity, history of multiple ulcerations, HTN, HLD, COPD, A-fib, CHF. He presents back to the wound care center today accompanied by his for nonhealing left lower extremity ulceration. states he has either bumped his leg on something or picked at some skin on the front of his leg creating a new wound. They state they have been following with Dr. Anderson in [place] as well as PCP Dr. Olguin. They state occasional use of mupirocin topical ointment but otherwise have not been applying dressings to the site. They state the wound has been present for a few weeks and has not made much progress and thus they were referred to the wound care center for continued wound healing. He denies N/V/F/chills. He has no further complaints. Subjective Subjective Patient is a 72-year-old male who follows up to the wound care center today for a left lower extremity ulceration. His states she has left graft in place and is only changing outer dressings as needed. She states he has developed a new wound to the lateral ankle of the left leg. She is unsure of how the wound occurred. He denies constitutional symptoms today. Denies further complaints today. Objective Data Objective Data Vital Signs: Vital Signs Temp Pulse Resp BP O2 Del Method 96.7 F L 91 18 138/78 H Room Air 03/07/23 08:26 03/07/23 08:26 03/07/23 08:26 03/07/23 08:26 03/07/23 08:26 Oxygen Delivery Method Room Air Weight: 114.015 kg Body Mass Index (BMI) 31.4 Physical Exam Const alert, oriented x3 and no apparent distress General Appearance: cooperative HEENT normocephalic Eyes Eyes Narrative: Blind, wearing dark glasses Neck General: normal visual inspection Lymph Lymphatic: no lymphadenopathy noted and no lymphedema noted Resp normal respiratory effort Cardio regular rate and regular rhythm Extremity normal capillary refill, no joint enlargement, no calf tenderness and no pedal edema Extremity Narrative: DP pulses palpable and PT pulses weakly palpable bilateral. CFT less than 3 seconds to the digits bilateral. Hair growth absent to digits of foot bilateral. Dermatological: Skin is thin and demonstrating trophic changes bilateral lower extremity. Skin is excessively dry with peeling/flaking consistent with diabetic autonomic neuropathy and microvascular disease. There is an ulceration noted to the anterior aspect overlying the tibial crest with 80% mixed yellow fibrotic tissue and 20% red granular tissue at wound margin. There is crusting secondary to serous drainage at wound margin. Musculoskeletal: Muscle strength 5 of 5 age-appropriate. Decreased ankle range of motion in dorsiflexion with the knee extended without pain or crepitus bilateral. Decreased range of motion of the first metatarsophalangeal joint without pain or crepitus bilateral. There is hammertoe deformity of lesser digits bilateral without pain to palpation. Skin no rashes or lesions noted, skin turgor normal and no jaundice Neuro moves all extremities Debridement Note Debridement Note Wound debrided: Left lower extremity x2 Laterality: Left Wound Grade/Stage: Miguel stage I Type of Debridement: Excisional debridement Anesthesia Used: 5% Lidocaine Gel Depth: Down to and including healthy tissue and in the subcutaneous layer Percentage of wound debrided: 100 Instrument Used: 5mm curette Tissue Removed: Fibrous, devitalized subcutaneous, biofilm, slough Severity: Fat Layer Exposed Amount of bleeding with debridement: Mild Bleeding Controlled with: Compression and gauze Patient tolerated procedure: Patient tolerated procedure well Post-Debridement Measurements and Additional Note: Post-Debridement Measurements/Treatment - Nurse 1 - General Ulcer Assessment Start: 03/07/23 08:25 Freq: Status: Active Protocol: [email or web address] Activity Type Activity Date Activity User E-sign Co-sign Detail Recorded Client Recorded Date Recorded By Document 03/07/23 08:26 KW Desktop 03/07/23 08:39 KW 03/07/23 08:26 - Today's Visit Information Type of service Follow-up Visit (Physician/STORE OPERATIONS ASSOCIATE ) Arrival Mode Ambulatory,Cane Accompanied by Patient Identification Verified (Name & Yes ) Height and Weight Body Mass Index (BMI) 31.4 BMI Classification Obese Vital Signs Temperature (97.8 F-99.1 F) 96.7 F L Temperature Source Temporal Pulse Rate (60-100) 91 Pulse Location Monitor Respiratory Rate (12-18) 18 Respiratory rate source Observation Oxygen Delivery Method Room Air Blood Pressure (90/60-120/80) 138/78 H Blood Pressure Mean (mm Hg) 98 Source Monitor Position Sitting Blood Pressure Location Left Arm History Since Last Visit- (Skip if this is Patient's initial visit) Have you changed medications since your No last visit? Any new allergies or adverse reactions No Had a fall/change in ADL's that may No increase risk of falls Signs or symptoms of abuse and/or No neglect since last visit Have you been in the hospital since your No last visit? Has dressing in place as prescribed Yes Has compression in place as prescribed Yes Has offloadiing in place as prescribed No Experienced any changes in pain level or No management Left Footwear Regular Shoe Right Footwear Regular Shoe Pain Scale: 0-10 Numeric Is Patient Pain Free? Yes WC - Nurse 1 - General Ulcer Measurement Start: 03/07/23 08:25 Freq: Status: Active Protocol: Activity Type Activity Date Activity User E-sign Co-sign Detail Recorded Client Recorded Date Recorded By Document 03/07/23 08:26 KW Desktop 03/07/23 08:39 KW 03/07/23 08:26 Wound Center Nurse 1 #9 LT ANKLE -Current Size (cm) - Length 0.5 -Current Size (cm) - Width 0.3 -Current Size (cm) - Depth 0.1 -Total Square Cm 0.15 -Exudate Amt Small -Exudate Type Serosanguineous -Wound Margin Distinct, Outline Attached -Granulation Amt Small (1-33%) -Granulation Quality Red -Necrosis Amt Small (1-33%) -Necrotic Tissue Type Adherent Slough -Texture (Jada-wound Skin Appearance) Assessed -Moisture (Jada-wound Skin Appearance) Assessed -Color (Jada-wound Skin Appearance) Assessed -Ulcer Cleansing Soap and Water -Anesthetic Used 5% Lidocaine Gel #8 L Leon -Current Size (cm) - Length 1.5 -Current Size (cm) - Width 2.0 -Current Size (cm) - Depth 0.2 -Total Square Cm 3.00 -Exudate Amt Small -Exudate Type Serosanguineous -Wound Margin Distinct, Outline Attached -Granulation Amt Medium (34-66%) -Granulation Quality Red -Necrosis Amt Small (1-33%) -Necrotic Tissue Type Adherent Slough -Texture (Jada-wound Skin Appearance) Assessed -Moisture (Jada-wound Skin Appearance) Assessed -Color (Jada-wound Skin Appearance) Assessed -Temperature (Jada-wound Skin No Abnormality Appearance) (Pt Warm) -Ulcer Cleansing Soap and Water -Foul Odor after Cleansing No -Anesthetic Used 5% Lidocaine Gel Left Calf (cm) 37.2 Left Ankle (cm) 22.0 WC - Nurse 3 - General Ulcer D/C NN Start: 03/07/23 08:25 Freq: Status: Active Protocol: Activity Type Activity Date Activity User E-sign Co-sign Detail Recorded Client Recorded Date Recorded By Document 03/07/23 09:20 KW Desktop 03/07/23 09:20 KW 03/07/23 09:20 Wound Care Center Nurse 3 #9 LT ANKLE -Primary Dressing Covered/Secured with Dry Gauze & Roll Gauze, Secured with Tape #8 L Leon -Primary Dressing Covered/Secured with Dry Gauze & Roll Gauze, Secured with Tape Left -Tubular Bandage Single Layer -Size of Tubigrip Used Size D -Size D ($) 1 Pain Scale: 0-10 Numeric Is Patient Pain Free? Yes WC - Visit Discharge Discharge Condition Stable Ambulatory Status Ambulatory,Cane Transportation Private Auto Medication Reconcilliation completed & No provided to patient/care provider Clinical Summary of Care Provided Yes Assessment/Plan Assessment/Plan (1) Delayed wound healing: CODE(S): T14.8XXD - Other injury of unspecified body region, subsequent encounter (2) 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 layer exposed: CODE(S): L97.222 - 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 layer exposed (3) Non-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: CODE(S): L97.322 - Non-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 (4) Venous insufficiency of both lower extremities: CODE(S): I87.2 - Venous insufficiency (chronic) (peripheral) (5) COPD (chronic obstructive pulmonary disease): CODE(S): J44.9 - Chronic obstructive pulmonary disease, unspecified (6) DM type 2 (diabetes mellitus, type 2): CODE(S): E11.9 - Type 2 diabetes mellitus without complications QUALIFIERS: Diabetes mellitus complication status: with other specified complication Diabetes mellitus detention insulin use: with truck terminal manager 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 Qualified Code(s): E11.69 - Type 2 diabetes mellitus with other specified complication; Z79.4 - joint terminal attack controller (current) use of insulin (7) Hyperlipidemia: CODE(S): E78.5 - Hyperlipidemia, unspecified QUALIFIERS: Hyperlipidemia type: unspecified Qualified Code(s): E78.5 - Hyperlipidemia, unspecified (8) Chronic diastolic (congestive) heart failure: CODE(S): I50.32 - Chronic diastolic (congestive) heart failure (9) Longstanding persistent atrial fibrillation: CODE(S): I48.11 - Longstanding persistent atrial fibrillation PLAN: Plan Patient seen and evaluated I reviewed his previous treatment history by PCP. Patient had followed Dr. Anderson. Ulceration underwent debridement as noted in the clinical panel above. Ulceration to the left anterior lower extremity measures 1.2 cm x 1.4 cm x 0.2 cm. No signs of infection. EpiFix graft #3 applied to wound bed. Site dressed with Adaptic touch and anchored with Steri-Strips then dressed with dry sterile dressing. He was instructed to not get the dressing wet. They are to change outer layer as needed. New wound left lateral ankle measures 0.6 cm x 0.4 cm x 0.2 cm. Wound underwent debridement as noted in clinical panel above. Sunni applied to the wound and they will change daily. Anterior leg wound does demonstrate reduction in size from previous visit. Discussed continued diabetic diet to ensure proper glucose control. Recent A1c 6.4%. Discussed that this is a good standing for control of his diabetes and will aid in wound healing. Discussed with to aid in daily foot checks as her is blind. Discussed wearing shoe gear at all times and to never go barefoot. Socks include barefoot. They voiced understanding of this today. Recommend continued follow-up with PCP for continued diabetic management. Discussed adequate protein intake to continue to aid in wound healing. Also discussed Negrito supplementation to aid in wound healing. Discussed signs and symptoms with the pertaining to infection. Discussed if she notices increasing redness about the wound margin spreading up the leg, any purulent drainage from the wound site, increasing foul odor from the wound, or if he experiences fever greater than 101 degree, nausea, vomiting, chills that these are signs of progressing infection and he needs to report to the ED. They voiced understanding of this today. The following work up and care recommendations were made: Dressing: EpiFix, Adaptic touch, Steri-Strips, dry sterile dressing. Change outer dressing as needed Wash: Do not get wet Tissue growth optimization: EpiFix Offload: Ensure anterior leg is not bumped and discussed no picking at skin sites. Vascular: DP and PT pulses palpable with adequate capillary fill time. However skin demonstrates trophic changes consistent with microvascular disease. Edema: No edema currently, has history of chronic venous stasis. Recommend continued compression stocking. Infection: No signs of infection. Pain: May take [id number] Tylenol extra strength for discomfort. Host factors: DM type II, chronic venous stasis, CHF, COPD, blindness I answered all the patient's questions. To return to the wound healing center in 1 week or call sooner if the patient has any questions or concerns.
--- NOTE | 2023-03-14 08:39 | PCM.WC.PN ---
History of Present Illness Date of Service: 03/14/23 Chief Complaint: Left Leg Ulcer History of Wound: Mr. Turcios is a 72-year-old with PMHx of of diabetes mellitus type 2, venous insufficiency bilateral lower extremity, history of multiple ulcerations, HTN, HLD, COPD, A-fib, CHF. He presents back to the wound care center today accompanied by his for nonhealing left lower extremity ulceration. states he has either bumped his leg on something or picked at some skin on the front of his leg creating a new wound. They state they have been following with Dr. Anderson in [place] as well as PCP Dr. Olguin. They state occasional use of mupirocin topical ointment but otherwise have not been applying dressings to the site. They state the wound has been present for a few weeks and has not made much progress and thus they were referred to the wound care center for continued wound healing. He denies N/V/F/chills. He has no further complaints. Subjective Subjective Patient is a 72-year-old male who follows up to the wound care center today for a left lower extremity ulceration x 2. His states she has left graft in place and is only changing outer dressings as needed. He denies constitutional symptoms today. Denies further complaints today. Objective Data Objective Data Vital Signs: Vital Signs Temp Pulse Resp BP O2 Del Method 96.7 F L 91 18 138/78 H Room Air 03/07/23 08:26 03/07/23 08:26 03/07/23 08:26 03/07/23 08:26 03/07/23 08:26 Oxygen Delivery Method Room Air Weight: 114.015 kg Body Mass Index (BMI) 31.4 Physical Exam Const alert, oriented x3 and no apparent distress General Appearance: cooperative HEENT normocephalic Eyes Eyes Narrative: Blind, wearing dark glasses Neck General: normal visual inspection Lymph Lymphatic: no lymphadenopathy noted and no lymphedema noted Resp normal respiratory effort Cardio regular rate and regular rhythm Extremity normal capillary refill, no joint enlargement, no calf tenderness and no pedal edema Extremity Narrative: DP pulses palpable and PT pulses weakly palpable bilateral. CFT less than 3 seconds to the digits bilateral. Hair growth absent to digits of foot bilateral. Dermatological: Skin is thin and demonstrating trophic changes bilateral lower extremity. Skin is excessively dry with peeling/flaking consistent with diabetic autonomic neuropathy and microvascular disease. There is an ulceration noted to the anterior aspect overlying the tibial crest with 80% mixed yellow fibrotic tissue and 20% red granular tissue at wound margin. There is crusting secondary to serous drainage at wound margin. Musculoskeletal: Muscle strength 5 of 5 age-appropriate. Decreased ankle range of motion in dorsiflexion with the knee extended without pain or crepitus bilateral. Decreased range of motion of the first metatarsophalangeal joint without pain or crepitus bilateral. There is hammertoe deformity of lesser digits bilateral without pain to palpation. Skin no rashes or lesions noted, skin turgor normal and no jaundice Neuro moves all extremities Debridement Note Debridement Note Wound debrided: Left anterior leg Laterality: Left Wound Grade/Stage: Miguel stage I Type of Debridement: Excisional debridement Anesthesia Used: 5% Lidocaine Gel Depth: Down to and including healthy tissue and in the subcutaneous layer Percentage of wound debrided: 100 Instrument Used: 5mm curette Tissue Removed: Fibrous, devitalized subcutaneous, biofilm, slough Severity: Fat Layer Exposed Amount of bleeding with debridement: Mild Bleeding Controlled with: Compression and gauze Patient tolerated procedure: Patient tolerated procedure well Post-Debridement Measurements and Additional Note: Post-Debridement Measurements/Treatment - Nurse 1 - General Ulcer Assessment Start: 03/07/23 08:25 Freq: Status: Active Protocol: OLIVIA Activity Type Activity Date Activity User E-sign Co-sign Detail Recorded Client Recorded Date Recorded By Document 03/07/23 08:26 KW Desktop 03/07/23 08:39 KW 03/07/23 08:26 - Today's Visit Information Type of service Follow-up Visit (Physician/CLAY CARMAN ) Arrival Mode Ambulatory,Cane Accompanied by Patient Identification Verified (Name & Yes ) Height and Weight Body Mass Index (BMI) 31.4 BMI Classification Obese Vital Signs Temperature (97.8 F-99.1 F) 96.7 F L Temperature Source Temporal Pulse Rate (60-100) 91 Pulse Location Monitor Respiratory Rate (12-18) 18 Respiratory rate source Observation Oxygen Delivery Method Room Air Blood Pressure (90/60-120/80) 138/78 H Blood Pressure Mean (mm Hg) 98 Source Monitor Position Sitting Blood Pressure Location Left Arm History Since Last Visit- (Skip if this is Patient's initial visit) Have you changed medications since your No last visit? Any new allergies or adverse reactions No Had a fall/change in ADL's that may No increase risk of falls Signs or symptoms of abuse and/or No neglect since last visit Have you been in the hospital since your No last visit? Has dressing in place as prescribed Yes Has compression in place as prescribed Yes Has offloadiing in place as prescribed No Experienced any changes in pain level or No management Left Footwear Regular Shoe Right Footwear Regular Shoe Pain Scale: 0-10 Numeric Is Patient Pain Free? Yes WC - Nurse 1 - General Ulcer Measurement Start: 03/07/23 08:25 Freq: Status: Active Protocol: Activity Type Activity Date Activity User E-sign Co-sign Detail Recorded Client Recorded Date Recorded By Document 03/07/23 08:26 KW Desktop 03/07/23 08:39 KW 03/07/23 08:26 Wound Center Nurse 1 #9 LT ANKLE -Current Size (cm) - Length 0.5 -Current Size (cm) - Width 0.3 -Current Size (cm) - Depth 0.1 -Total Square Cm 0.15 -Exudate Amt Small -Exudate Type Serosanguineous -Wound Margin Distinct, Outline Attached -Granulation Amt Small (1-33%) -Granulation Quality Red -Necrosis Amt Small (1-33%) -Necrotic Tissue Type Adherent Slough -Texture (Jada-wound Skin Appearance) Assessed -Moisture (Jada-wound Skin Appearance) Assessed -Color (Jada-wound Skin Appearance) Assessed -Ulcer Cleansing Soap and Water -Anesthetic Used 5% Lidocaine Gel #8 L Leon -Current Size (cm) - Length 1.5 -Current Size (cm) - Width 2.0 -Current Size (cm) - Depth 0.2 -Total Square Cm 3.00 -Exudate Amt Small -Exudate Type Serosanguineous -Wound Margin Distinct, Outline Attached -Granulation Amt Medium (34-66%) -Granulation Quality Red -Necrosis Amt Small (1-33%) -Necrotic Tissue Type Adherent Slough -Texture (Jada-wound Skin Appearance) Assessed -Moisture (Jada-wound Skin Appearance) Assessed -Color (Jada-wound Skin Appearance) Assessed -Temperature (Jada-wound Skin No Abnormality Appearance) (Pt Warm) -Ulcer Cleansing Soap and Water -Foul Odor after Cleansing No -Anesthetic Used 5% Lidocaine Gel Left Calf (cm) 37.2 Left Ankle (cm) 22.0 WC - Nurse 2 - General Ulcer CM Notes Start: 03/07/23 08:25 Freq: Status: Active Protocol: Activity Type Activity Date Activity User E-sign Co-sign Detail Recorded Client Recorded Date Recorded By Document 03/07/23 16:22 PL [id number] 03/07/23 16:26 PL 03/07/23 16:22 Wound Center Nurse 2 #9 LT ANKLE -Time 09:01 -Correct Patient Yes -Correct Side, Site, Position Yes -Correct Procedure Yes -Procedure Performed Yes -Type of Procedure Debridement -Clinical Debridement Subcutaneous -Tissue Removed Subcutaneous -Post Debridement (cm) - Length 0.6 -Post Debridement (cm) - Width 0.4 -Post Debridement (cm) - Depth 0.2 -Total Square (Post) (cm) 0.24 -Area of Debridement (cm) - Length 0.6 -Area of Debridement (cm) - Width 0.4 -Total Square (Area) (cm) 0.24 -Tunneling No -Undermining/Tunneling No -Circular Undermining No -Wound/Ulcer Outcome Not Healed -Ulcer Cleansing Rinsed/ Irrigated with Saline -Foul Odor after Cleansing No -Bioengineered Tissue No -Bleeding Controlled with Pressure -Treatment Response Procedure Tolerated Well -Debridement - Subq, 1st 20sq cm Yes #8 L Leon -Time 09:01 -Correct Patient Yes -Correct Side, Site, Position Yes -Correct Procedure Yes -Procedure Performed Yes -Type of Procedure Debridement -Clinical Debridement Subcutaneous -Tissue Removed Subcutaneous -Post Debridement (cm) - Length 1.2 -Post Debridement (cm) - Width 1.4 -Post Debridement (cm) - Depth 0.1 -Total Square (Post) (cm) 1.68 -Area of Debridement (cm) - Length 1.2 -Area of Debridement (cm) - Width 1.4 -Total Square (Area) (cm) 1.68 -Tunneling No -Undermining/Tunneling No -Circular Undermining No -Wound/Ulcer Outcome Not Healed -Ulcer Cleansing Rinsed/ Irrigated with Saline -Foul Odor after Cleansing No -Bioengineered Tissue Yes -Type of Bioengineered Tissue Epifix 18mm Disc -Expiration Date 12/02/27 -Product Lot Number [id number] -Percent Used 100 -Bleeding Controlled with Pressure -Treatment Response Procedure Tolerated Well -Debridement - Subq, 1st 20sq cm No -Apply Skin Sub - 1st 25 sq cm - Legs 1 -Epifix 18mm Disc 3 Pain Scale: 0-10 Numeric Is Patient Pain Free? Yes - Nurse 3 - General Ulcer D/C NN Start: 03/07/23 08:25 Freq: Status: Active Protocol: Activity Type Activity Date Activity User E-sign Co-sign Detail Recorded Client Recorded Date Recorded By Document 03/07/23 09:20 KW Desktop 03/07/23 09:20 KW 03/07/23 09:20 Wound Care Center Nurse 3 #9 LT ANKLE -Primary Dressing Covered/Secured with Dry Gauze & Roll Gauze, Secured with Tape #8 L Leon -Primary Dressing Covered/Secured with Dry Gauze & Roll Gauze, Secured with Tape Left -Tubular Bandage Single Layer -Size of Tubigrip Used Size D -Size D ($) 1 Pain Scale: 0-10 Numeric Is Patient Pain Free? Yes WC - Visit Discharge Discharge Condition Stable Ambulatory Status Ambulatory,Cane Transportation Private Auto Medication Reconcilliation completed & No provided to patient/care provider Clinical Summary of Care Provided Yes Additional Wound Wound debrided: Left lateral ankle Laterality: Left Wound Grade/Stage: Miguel stage I Type of Debridement: Excisional debridement Anesthesia Used: 5% Lidocaine Gel Depth: Down to and including healthy tissue and in the subcutaneous layer Percentage of wound debrided: 100 Instrument Used: 5mm curette and #15 blade Tissue Removed: Fibrous, devitalized subcutaneous, biofilm, slough Severity: Fat Layer Exposed Amount of bleeding with debridement: Mild Bleeding Controlled with: Compression and gauze Patient tolerated procedure: Patient tolerated procedure well Assessment/Plan Assessment/Plan (1) Delayed wound healing: CODE(S): T14.8XXD - Other injury of unspecified body region, subsequent encounter (2) 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 layer exposed: CODE(S): L97.222 - 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 layer exposed (3) Non-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: CODE(S): L97.322 - Non-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 (4) Venous insufficiency of both lower extremities: CODE(S): I87.2 - Venous insufficiency (chronic) (peripheral) (5) COPD (chronic obstructive pulmonary disease): CODE(S): J44.9 - Chronic obstructive pulmonary disease, unspecified (6) DM type 2 (diabetes mellitus, type 2): CODE(S): E11.9 - Type 2 diabetes mellitus without complications QUALIFIERS: Diabetes mellitus complication status: with other specified complication Diabetes mellitus residential insulin use: with residential use Qualified Code(s): E11.69 - Type 2 diabetes mellitus with other specified complication; 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 Patient had followed Dr. Anderson. Ulceration underwent debridement as noted in the clinical panel above. Ulceration to the left anterior lower extremity measures 1.5 cm x 1.8 cm x 0.1 cm. No signs of infection. EpiFix graft #4 applied to wound bed. Site dressed with Adaptic touch and anchored with Steri-Strips then dressed with dry sterile dressing. He was instructed to not get the dressing wet. They are to change outer layer as needed. Left lateral ankle measures 0.6 cm x 0.5 cm x 0.2 cm. Wound underwent debridement as noted in clinical panel above. Sunni applied to the wound and they will change daily. Anterior leg wound does demonstrate slight reduction in size from previous visit. Discussed continued diabetic diet to ensure proper glucose control. Recent A1c 6.4%. Discussed that this is a good standing for control of his diabetes and will aid in wound healing. Discussed with to aid in daily foot checks as her is blind. Discussed wearing shoe gear at all times and to never go barefoot. Socks include barefoot. They voiced understanding of this today. Recommend continued follow-up with PCP for continued diabetic management. Discussed adequate protein intake to continue to aid in wound healing. Also discussed Negrito supplementation to aid in wound healing. Discussed signs and symptoms with the pertaining to infection. Discussed if she notices increasing redness about the wound margin spreading up the leg, any purulent drainage from the wound site, increasing foul odor from the wound, or if he experiences fever greater than 101 degree, nausea, vomiting, chills that these are signs of progressing infection and he needs to report to the ED. They voiced understanding of this today. The following work up and care recommendations were made: Dressing: EpiFix, Adaptic touch, Steri-Strips, dry sterile dressing. Change outer dressing as needed Wash: Do not get wet Tissue growth optimization: EpiFix Offload: Ensure anterior leg is not bumped and discussed no picking at skin sites. Vascular: DP and PT pulses palpable with adequate capillary fill time. However skin demonstrates trophic changes consistent with microvascular disease. Edema: No edema currently, has history of chronic venous stasis. Recommend continued compression stocking. Infection: No signs of infection. Pain: May take [id number] Tylenol extra strength for discomfort. Host factors: DM type II, chronic venous stasis, CHF, COPD, blindness I answered all the patient's questions. To return to the wound healing center in 1 week or call sooner if the patient has any questions or concerns.
[2023-03-14 08:41] VITALS: BP 133/65; PULSE 95; RESP 18; TEMP 36.4; BMI 31.4
[2023-03-21 08:42] VITALS: BP 135/75; PULSE 87; RESP 18; BMI 31.4
--- NOTE | 2023-03-22 00:39 | PN.PCM_ITS ---
History of Present Illness Date of Service: 03/21/23 Chief Complaint: Left Leg Ulcer History of Wound: Mr. Turcios is a 72-year-old with PMHx of of diabetes mellitus type 2, venous insufficiency bilateral lower extremity, history of multiple ulcerations, HTN, HLD, COPD, A-fib, CHF. He presents back to the wound care center today accompanied by his for nonhealing left lower extremity ulceration. states he has either bumped his leg on something or picked at some skin on the front of his leg creating a new wound. They state they have been following with Dr. Anderson in [place] as well as PCP Dr. Olguin. They state occasional use of mupirocin topical ointment but otherwise have not been applying dressings to the site. They state the wound has been present for a few weeks and has not made much progress and thus they were referred to the wound care center for continued wound healing. He denies N/V/F/chills. He has no further complaints. Subjective Subjective Patient is a 72-year-old male who follows up to the wound care center today for a left lower extremity ulceration x 2. His states she has left graft in place and is only changing outer dressings as needed. He denies constitutional symptoms today. Denies further complaints today. Objective Data Objective Data Vital Signs: Vital Signs Temp Pulse Resp BP O2 Del Method 97.6 F L 87 18 135/75 H Room Air 03/14/23 08:41 03/21/23 08:42 03/21/23 08:42 03/21/23 08:42 03/21/23 08:42 Oxygen Delivery Method Room Air Weight: 114.015 kg Body Mass Index (BMI) 31.4 Physical Exam Const alert, oriented x3 and no apparent distress General Appearance: cooperative HEENT normocephalic Eyes Eyes Narrative: Blind, wearing dark glasses Neck General: normal visual inspection Lymph Lymphatic: no lymphadenopathy noted and no lymphedema noted Resp normal respiratory effort Cardio regular rate and regular rhythm Extremity normal capillary refill, no joint enlargement, no calf tenderness and no pedal edema Extremity Narrative: DP pulses palpable and PT pulses weakly palpable bilateral. CFT less than 3 seconds to the digits bilateral. Hair growth absent to digits of foot bilateral. Dermatological: Skin is thin and demonstrating trophic changes bilateral lower extremity. Skin is excessively dry with peeling/flaking consistent with diabetic autonomic neuropathy and microvascular disease. There is an ulceration noted to the anterior aspect overlying the tibial crest with 80% mixed yellow fibrotic tissue and 20% red granular tissue at wound margin. There is crusting secondary to serous drainage at wound margin. Musculoskeletal: Muscle strength 5 of 5 age-appropriate. Decreased ankle range of motion in dorsiflexion with the knee extended without pain or crepitus bilateral. Decreased range of motion of the first metatarsophalangeal joint without pain or crepitus bilateral. There is hammertoe deformity of lesser digits bilateral without pain to palpation. Skin no rashes or lesions noted, skin turgor normal and no jaundice Neuro moves all extremities Debridement Note Debridement Note Wound debrided: Left lower extremity x2 Laterality: Left Wound Grade/Stage: Miguel stage I Type of Debridement: Excisional debridement Anesthesia Used: 5% Lidocaine Gel Depth: Down to and including healthy tissue and in the subcutaneous layer Percentage of wound debrided: 100 Instrument Used: 5mm curette Tissue Removed: Fibrous, devitalized subcutaneous, biofilm, slough to Severity: Fat Layer Exposed Amount of bleeding with debridement: Mild Bleeding Controlled with: Compression and gauze Patient tolerated procedure: Patient tolerated procedure well Post-Debridement Measurements and Additional Note: Post-Debridement Measurements/Treatment - Nurse 1 - General Ulcer Assessment Start: 03/07/23 08:25 Freq: Status: Active Protocol: OLIVIA Activity Type Activity Date Activity User E-sign Co-sign Detail Recorded Client Recorded Date Recorded By Document 03/07/23 08:26 KW Desktop 03/07/23 08:39 KW Document 03/14/23 08:41 PL Desktop 03/14/23 08:42 PL Document 03/21/23 08:42 KW Desktop 03/21/23 08:47 KW 03/07/23 03/14/23 03/21/23 08:26 08:41 08:42 - Today's Visit Information Type of service Follow-up Visit Follow-up Visit Follow-up Visit (Physician/FURNACE FIRER (Physician/FURNACE FIRER (Physician/FURNACE FIRER ) ) ) Arrival Mode Ambulatory,Cane Ambulatory,Cane Ambulatory,Cane Transfer Assistance None Accompanied by Patient Identification Verified (Name & Yes Yes Yes ) Patient Requires Transmission-Based No Precautions Height and Weight Body Mass Index (BMI) 31.4 31.4 31.4 BMI Classification Obese Obese Obese Vital Signs Temperature (97.8 F-99.1 F) 96.7 F L 97.6 F L Temperature Source Temporal Temporal Pulse Rate (60-100) 91 95 87 Pulse Location Monitor Monitor Respiratory Rate (12-18) 18 18 18 Respiratory rate source Observation Observation Oxygen Delivery Method Room Air Room Air Blood Pressure (90/60-120/80) 138/78 H 133/65 H 135/75 H Blood Pressure Mean (mm Hg) 98 87 95 Source Monitor Monitor Position Sitting Semi-Fowlers Blood Pressure Location Left Arm Left Arm History Since Last Visit- (Skip if this is Patient's initial visit) Have you changed medications since your No No No last visit? Any new allergies or adverse reactions No No No Had a fall/change in ADL's that may No No No increase risk of falls Signs or symptoms of abuse and/or No No No neglect since last visit Have you been in the hospital since your No No No last visit? Has dressing in place as prescribed Yes Yes Yes Has compression in place as prescribed Yes Yes Yes Has offloadiing in place as prescribed No N/A No Experienced any changes in pain level or No No No management Left Footwear Regular Shoe Regular Shoe Right Footwear Regular Shoe Regular Shoe Pain Scale: 0-10 Numeric Is Patient Pain Free? Yes Yes Yes WC - Nurse 1 - General Ulcer Measurement Start: 03/07/23 08:25 Freq: Status: Active Protocol: Activity Type Activity Date Activity User E-sign Co-sign Detail Recorded Client Recorded Date Recorded By Document 03/07/23 08:26 KW Desktop 03/07/23 08:39 KW Document 03/21/23 08:42 KW Desktop 03/21/23 08:47 KW 03/07/23 03/21/23 08:26 08:42 Wound Center Nurse 1 #9 LT ANKLE -Current Size (cm) - Length 0.5 0.8 -Current Size (cm) - Width 0.3 0.7 -Current Size (cm) - Depth 0.1 0.2 -Total Square Cm 0.15 0.56 -Exudate Amt Small Small -Exudate Type Serosanguineous Serosanguineous -Wound Margin Distinct, Distinct, Outline Outline Attached Attached -Granulation Amt Small (1-33%) Medium (34-66%) -Granulation Quality Red Red -Necrosis Amt Small (1-33%) Medium (34-66%) -Necrotic Tissue Type Adherent Slough Adherent Slough -Texture (Jada-wound Skin Appearance) Assessed -Moisture (Jada-wound Skin Appearance) Assessed -Color (Jada-wound Skin Appearance) Assessed -Ulcer Cleansing Soap and Water Soap and Water -Foul Odor after Cleansing No -Anesthetic Used 5% Lidocaine 5% Lidocaine Gel Gel #8 L Leon -Current Size (cm) - Length 1.5 0.1 -Current Size (cm) - Width 2.0 0.1 -Current Size (cm) - Depth 0.2 0.1 -Total Square Cm 3.00 0.01 -Exudate Amt Small -Exudate Type Serosanguineous -Wound Margin Distinct, Distinct, Outline Outline Attached Attached -Granulation Amt Medium (34-66%) -Granulation Quality Red -Necrosis Amt Small (1-33%) -Necrotic Tissue Type Adherent Slough -Texture (Jada-wound Skin Appearance) Assessed Assessed -Moisture (Jada-wound Skin Appearance) Assessed Assessed -Color (Jada-wound Skin Appearance) Assessed Assessed -Temperature (Jada-wound Skin No Abnormality No Abnormality Appearance) (Pt Warm) (Pt Warm) -Ulcer Cleansing Soap and Water Soap and Water -Foul Odor after Cleansing No -Anesthetic Used 5% Lidocaine 5% Lidocaine Gel Gel -Wound Comment(s) scab Left Calf (cm) 37.2 36.3 Left Ankle (cm) 22.0 21.7 WC - Nurse 2 - General Ulcer CM Notes Start: 03/07/23 08:25 Freq: Status: Active Protocol: Activity Type Activity Date Activity User E-sign Co-sign Detail Recorded Client Recorded Date Recorded By Document 03/07/23 16:22 PL [id number] 03/07/23 16:26 PL Document 03/14/23 17:51 PL [id number] 03/14/23 17:54 PL Document 03/21/23 16:21 PL [id number] 03/21/23 16:23 PL 03/07/23 03/14/23 03/21/23 16:22 17:51 16:21 Wound Center Nurse 2 #9 LT ANKLE -Time 09:01 08:56 09:20 -Correct Patient Yes Yes Yes -Correct Side, Site, Position Yes Yes Yes -Correct Procedure Yes Yes Yes -Procedure Performed Yes Yes Yes -Type of Procedure Debridement Debridement Debridement -Clinical Debridement Subcutaneous Subcutaneous Subcutaneous -Tissue Removed Subcutaneous Subcutaneous Subcutaneous -Post Debridement (cm) - Length 0.6 0.6 1.1 -Post Debridement (cm) - Width 0.4 0.5 0.8 -Post Debridement (cm) - Depth 0.2 0.1 0.4 -Total Square (Post) (cm) 0.24 0.30 0.88 -Area of Debridement (cm) - Length 0.6 0.6 1.1 -Area of Debridement (cm) - Width 0.4 0.5 0.8 -Total Square (Area) (cm) 0.24 0.30 0.88 -Tunneling No No No -Undermining/Tunneling No No No -Circular Undermining No No No -Wound/Ulcer Outcome Not Healed Not Healed Not Healed -Ulcer Cleansing Rinsed/ Rinsed/ Rinsed/ Irrigated with Irrigated with Irrigated with Saline Saline Saline -Foul Odor after Cleansing No No No -Bioengineered Tissue No No No -Bleeding Controlled with Pressure Pressure Pressure -Treatment Response Procedure Procedure Procedure Tolerated Well Tolerated Well Tolerated Well -Debridement - Subq, 1st 20sq cm Yes Yes Yes #8 L Leon -Time 09:01 08:56 09:20 -Correct Patient Yes Yes Yes -Correct Side, Site, Position Yes Yes Yes -Correct Procedure Yes Yes Yes -Procedure Performed Yes Yes Yes -Type of Procedure Debridement Debridement Debridement -Clinical Debridement Subcutaneous Subcutaneous Subcutaneous -Tissue Removed Subcutaneous Subcutaneous Subcutaneous -Post Debridement (cm) - Length 1.2 1.5 1.3 -Post Debridement (cm) - Width 1.4 1.8 0.9 -Post Debridement (cm) - Depth 0.1 0.1 0.1 -Total Square (Post) (cm) 1.68 2.70 1.17 -Area of Debridement (cm) - Length 1.2 1.5 1.3 -Area of Debridement (cm) - Width 1.4 1.8 0.9 -Total Square (Area) (cm) 1.68 2.70 1.17 -Tunneling No No No -Undermining/Tunneling No No No -Circular Undermining No No No -Wound/Ulcer Outcome Not Healed Not Healed Not Healed -Ulcer Cleansing Rinsed/ Rinsed/ Rinsed/ Irrigated with Irrigated with Irrigated with Saline Saline Saline -Foul Odor after Cleansing No No No -Bioengineered Tissue Yes Yes Yes -Type of Bioengineered Tissue Epifix 18mm Epifix 18mm Epifix 18mm Disc Disc Disc -Expiration Date 12/02/27 12/02/27 12/02/27 -Product Lot Number [id number] -Percent Used 100 100 100 -Bleeding Controlled with Pressure Pressure Pressure -Treatment Response Procedure Procedure Procedure Tolerated Well Tolerated Well Tolerated Well -Debridement - Subq, 1st 20sq cm No No No -Apply Skin Sub - 1st 25 sq cm - Legs 1 1 1 -Epifix 18mm Disc 3 3 3 Pain Scale: 0-10 Numeric Is Patient Pain Free? Yes Yes Yes WC - Nurse 3 - General Ulcer D/C NN Start: 03/07/23 08:25 Freq: Status: Active Protocol: Activity Type Activity Date Activity User E-sign Co-sign Detail Recorded Client Recorded Date Recorded By Document 03/07/23 09:20 KW Desktop 03/07/23 09:20 KW Document 03/14/23 09:14 JF Desktop 03/14/23 09:17 JF Document 03/21/23 09:42 DL Desktop 03/21/23 09:43 DL 03/07/23 03/14/23 03/21/23 09:20 09:14 09:42 Wound Care Center Nurse 3 #9 LT ANKLE -Ulcer Cleansing Rinsed/ Irrigated with Saline -Foul Odor after Cleansing No No -Other Dressing epifix -Primary Dressing Covered/Secured with Dry Gauze & Dry Gauze & Dry Gauze & Roll Gauze, Roll Gauze, Roll Gauze, Secured with Secured with Secured with Tape Tape Tape #8 L Leon -Foul Odor after Cleansing No -Other Dressing epifix -Primary Dressing Covered/Secured with Dry Gauze & Dry Gauze & Dry Gauze & Roll Gauze, Roll Gauze, Roll Gauze, Secured with Secured with Secured with Tape Tape Tape -Other Covering tubigrip Left -Tubular Bandage Single Layer Single Layer -Size of Tubigrip Used Size D Size D -Size D ($) 1 1 Treatment Response Procedure Tolerated Well Pain Scale: 0-10 Numeric Is Patient Pain Free? Yes Yes Yes WC - Visit Discharge Discharge Condition Stable Stable Stable Ambulatory Status Ambulatory,Cane Ambulatory,Cane Ambulatory,Cane Transportation Private Auto Private Auto Accompanied by Medication Reconcilliation completed & No Yes provided to patient/care provider Clinical Summary of Care Provided Yes Yes Assessment/Plan Assessment/Plan (1) Delayed wound healing: CODE(S): T14.8XXD - Other injury of unspecified body region, subsequent encounter (2) 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 layer exposed: CODE(S): L97.222 - 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 layer exposed (3) Non-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: CODE(S): L97.322 - Non-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 (4) Venous insufficiency of both lower extremities: CODE(S): I87.2 - Venous insufficiency (chronic) (peripheral) (5) COPD (chronic obstructive pulmonary disease): CODE(S): J44.9 - Chronic obstructive pulmonary disease, unspecified (6) DM type 2 (diabetes mellitus, type 2): CODE(S): E11.9 - Type 2 diabetes mellitus without complications QUALIFIERS: Diabetes mellitus skilled nursing insulin use: with skilled nursing use Diabetes mellitus complication status: with other specified complication Qualified Code(s): E11.69 - Type 2 diabetes mellitus with other specified complication; Z79.4 - [employer] (current) use of insulin (7) Hyperlipidemia: CODE(S): E78.5 - Hyperlipidemia, unspecified QUALIFIERS: Hyperlipidemia type: unspecified Qualified Code(s): E78.5 - Hyperlipidemia, unspecified (8) Chronic diastolic (congestive) heart failure: CODE(S): I50.32 - Chronic diastolic (congestive) heart failure (9) Longstanding persistent atrial fibrillation: CODE(S): I48.11 - Longstanding persistent atrial fibrillation PLAN: Plan Patient seen and evaluated I reviewed his previous treatment history by PCP. Patient had followed Dr. Anderson. Ulceration underwent debridement as noted in the clinical panel above. Ulceration to the left anterior lower extremity measures 1.3 cm x 0.9 cm x 0.1 cm. No signs of infection. EpiFix graft #5 applied to wound bed. Site dressed with Adaptic touch and anchored with Steri-Strips then dressed with dry sterile dressing. He was instructed to not get the dressing wet. They are to change outer layer as needed. Left lateral ankle measures 1.1 cm x 0.8 cm x 0.4 cm. Wound underwent debridement as noted in clinical panel above. Sunni applied to the wound and they will change daily. Anterior leg wound does demonstrate reduction in size from previous visit. Lateral ankle wound has increased in size vs previous visit. Discussed continued diabetic diet to ensure proper glucose control. Recent A1c 6.4%. Discussed that this is a good standing for control of his diabetes and will aid in wound healing. Discussed with to aid in daily foot checks as her is blind. Discussed wearing shoe gear at all times and to never go barefoot. Socks include barefoot. They voiced understanding of this today. Recommend continued follow-up with PCP for continued diabetic management. Discussed adequate protein intake to continue to aid in wound healing. Also discussed Negrito supplementation to aid in wound healing. Discussed signs and symptoms with the pertaining to infection. Discussed if she notices increasing redness about the wound margin spreading up the leg, any purulent drainage from the wound site, increasing foul odor from the wound, or if he experiences fever greater than 101 degree, nausea, vomiting, chills that these are signs of progressing infection and he needs to report to the ED. They voiced understanding of this today. The following work up and care recommendations were made: Dressing: EpiFix, Adaptic touch, Steri-Strips, dry sterile dressing. Change outer dressing as needed Wash: Do not get wet Tissue growth optimization: EpiFix Offload: Ensure anterior leg is not bumped and discussed no picking at skin sites. Vascular: DP and PT pulses palpable with adequate capillary fill time. However skin demonstrates trophic changes consistent with microvascular disease. Edema: No edema currently, has history of chronic venous stasis. Recommend continued compression stocking. Infection: No signs of infection. Pain: May take [id number] Tylenol extra strength for discomfort. Host factors: DM type II, chronic venous stasis, CHF, COPD, blindness I answered all the patient's questions. To return to the wound healing center in 1 week or call sooner if the patient has any questions or concerns.
[2023-03-28 08:17] VITALS: BP 123/72; PULSE 84; RESP 18; BMI 31.4
--- NOTE | 2023-03-28 08:44 | PN.PCM_ITS ---
History of Present Illness Date of Service: 03/28/23 Chief Complaint: Left Leg Ulcer History of Wound: Mr. Turcios is a 72-year-old with PMHx of of diabetes mellitus type 2, venous insufficiency bilateral lower extremity, history of multiple ulcerations, HTN, HLD, COPD, A-fib, CHF. He presents back to the wound care center today accompanied by his for nonhealing left lower extremity ulceration. states he has either bumped his leg on something or picked at some skin on the front of his leg creating a new wound. They state they have been following with Dr. Anderson in [place] as well as PCP Dr. Olguin. They state occasional use of mupirocin topical ointment but otherwise have not been applying dressings to the site. They state the wound has been present for a few weeks and has not made much progress and thus they were referred to the wound care center for continued wound healing. He denies N/V/F/chills. He has no further complaints. Subjective Subjective Patient is a 72-year-old male who follows up to the wound care center today for a left lower extremity ulceration x 2. His states she has left graft in place and is only changing outer dressings as needed. He denies constitutional symptoms today. Denies further complaints today. Objective Data Objective Data Vital Signs: Vital Signs Temp Pulse Resp BP O2 Del Method 97.6 F L 84 18 123/72 H Room Air 03/14/23 08:41 03/28/23 08:17 03/28/23 08:17 03/28/23 08:17 03/28/23 08:17 Oxygen Delivery Method Room Air Weight: 114.015 kg Body Mass Index (BMI) 31.4 Physical Exam Const alert, oriented x3 and no apparent distress General Appearance: cooperative HEENT normocephalic Eyes Eyes Narrative: Blind, wearing dark glasses Neck General: normal visual inspection Lymph Lymphatic: no lymphadenopathy noted and no lymphedema noted Resp normal respiratory effort Cardio regular rate and regular rhythm Extremity normal capillary refill, no joint enlargement, no calf tenderness and no pedal edema Extremity Narrative: DP pulses palpable and PT pulses weakly palpable bilateral. CFT less than 3 seconds to the digits bilateral. Hair growth absent to digits of foot bilateral. Dermatological: Skin is thin and demonstrating trophic changes bilateral lower extremity. Skin is excessively dry with peeling/flaking consistent with diabetic autonomic neuropathy and microvascular disease. There is an ulceration noted to the anterior aspect overlying the tibial crest with 80% mixed yellow fibrotic tissue and 20% red granular tissue at wound margin. There is crusting secondary to serous drainage at wound margin. Musculoskeletal: Muscle strength 5 of 5 age-appropriate. Decreased ankle range of motion in dorsiflexion with the knee extended without pain or crepitus bilateral. Decreased range of motion of the first metatarsophalangeal joint without pain or crepitus bilateral. There is hammertoe deformity of lesser digits bilateral without pain to palpation. Skin no rashes or lesions noted, skin turgor normal and no jaundice Neuro moves all extremities Debridement Note Debridement Note Wound debrided: Left lateral ankle Laterality: Left Wound Grade/Stage: Miguel stage I Type of Debridement: Excisional debridement Anesthesia Used: 5% Lidocaine Gel Depth: Down to and including healthy tissue and in the subcutaneous layer Percentage of wound debrided: 100 Instrument Used: 5mm curette Tissue Removed: Fibrous, devitalized subcutaneous, biofilm, slough Severity: Fat Layer Exposed Amount of bleeding with debridement: Mild Bleeding Controlled with: Compression and gauze Patient tolerated procedure: Patient tolerated procedure well Post-Debridement Measurements and Additional Note: Post-Debridement Measurements/Treatment - Nurse 1 - General Ulcer Assessment Start: 03/07/23 08:25 Freq: Status: Active Protocol: OLIVIA Activity Type Activity Date Activity User E-sign Co-sign Detail Recorded Client Recorded Date Recorded By Document 03/07/23 08:26 KW Desktop 03/07/23 08:39 KW Document 03/14/23 08:41 PL Desktop 03/14/23 08:42 PL Document 03/21/23 08:42 KW Desktop 03/21/23 08:47 KW Document 03/28/23 08:17 KW Desktop 03/28/23 08:37 KW 03/07/23 03/14/23 03/21/23 08:26 08:41 08:42 - Today's Visit Information Type of service Follow-up Visit Follow-up Visit Follow-up Visit (Physician/ADJUNCT PROFESSOR OF LAW (Physician/ADJUNCT PROFESSOR OF LAW (Physician/ADJUNCT PROFESSOR OF LAW ) ) ) Arrival Mode Ambulatory,Cane Ambulatory,Cane Ambulatory,Cane Transfer Assistance None Accompanied by Patient Identification Verified (Name & Yes Yes Yes ) Patient Requires Transmission-Based No Precautions Height and Weight Body Mass Index (BMI) 31.4 31.4 31.4 BMI Classification Obese Obese Obese Vital Signs Temperature (97.8 F-99.1 F) 96.7 F L 97.6 F L Temperature Source Temporal Temporal Pulse Rate (60-100) 91 95 87 Pulse Location Monitor Monitor Respiratory Rate (12-18) 18 18 18 Respiratory rate source Observation Observation Oxygen Delivery Method Room Air Room Air Blood Pressure (90/60-120/80) 138/78 H 133/65 H 135/75 H Blood Pressure Mean (mm Hg) 98 87 95 Source Monitor Monitor Position Sitting Semi-Fowlers Blood Pressure Location Left Arm Left Arm History Since Last Visit- (Skip if this is Patient's initial visit) Have you changed medications since your No No No last visit? Any new allergies or adverse reactions No No No Had a fall/change in ADL's that may No No No increase risk of falls Signs or symptoms of abuse and/or No No No neglect since last visit Have you been in the hospital since your No No No last visit? Has dressing in place as prescribed Yes Yes Yes Has compression in place as prescribed Yes Yes Yes Has offloadiing in place as prescribed No N/A No Experienced any changes in pain level or No No No management Left Footwear Regular Shoe Regular Shoe Right Footwear Regular Shoe Regular Shoe Pain Scale: 0-10 Numeric Is Patient Pain Free? Yes Yes Yes 03/28/23 08:17 WC - Today's Visit Information Type of service Follow-up Visit (Physician/ADJUNCT PROFESSOR OF LAW ) Arrival Mode Ambulatory,Cane Transfer Assistance Accompanied by Patient Identification Verified (Name & Yes ) Patient Requires Transmission-Based Precautions Height and Weight Body Mass Index (BMI) 31.4 BMI Classification Obese Vital Signs Temperature (97.8 F-99.1 F) Temperature Source Pulse Rate (60-100) 84 Pulse Location Monitor Respiratory Rate (12-18) 18 Respiratory rate source Observation Oxygen Delivery Method Room Air Blood Pressure (90/60-120/80) 123/72 H Blood Pressure Mean (mm Hg) 89 Source Monitor Position Sitting Blood Pressure Location Left Arm History Since Last Visit- (Skip if this is Patient's initial visit) Have you changed medications since your No last visit? Any new allergies or adverse reactions No Had a fall/change in ADL's that may No increase risk of falls Signs or symptoms of abuse and/or No neglect since last visit Have you been in the hospital since your No last visit? Has dressing in place as prescribed Yes Has compression in place as prescribed Yes Has offloadiing in place as prescribed No Experienced any changes in pain level or No management Left Footwear Regular Shoe Right Footwear Regular Shoe Pain Scale: 0-10 Numeric Is Patient Pain Free? Yes WC - Nurse 1 - General Ulcer Measurement Start: 03/07/23 08:25 Freq: Status: Active Protocol: Activity Type Activity Date Activity User E-sign Co-sign Detail Recorded Client Recorded Date Recorded By Document 03/07/23 08:26 KW Desktop 03/07/23 08:39 KW Document 03/21/23 08:42 KW Desktop 03/21/23 08:47 KW Document 03/28/23 08:17 KW Desktop 03/28/23 08:37 KW 03/07/23 03/21/23 03/28/23 08:26 08:42 08:17 Wound Center Nurse 1 #9 LT ANKLE -Current Size (cm) - Length 0.5 0.8 1.2 -Current Size (cm) - Width 0.3 0.7 0.9 -Current Size (cm) - Depth 0.1 0.2 0.2 -Total Square Cm 0.15 0.56 1.08 -Exudate Amt Small Small Medium -Exudate Type Serosanguineous Serosanguineous Serosanguineous -Wound Margin Distinct, Distinct, Thickened Outline Outline Attached Attached -Granulation Amt Small (1-33%) Medium (34-66%) Small (1-33%) -Granulation Quality Red Red Red -Necrosis Amt Small (1-33%) Medium (34-66%) Medium (34-66%) -Necrotic Tissue Type Adherent Slough Adherent Slough Adherent Slough -Texture (Jada-wound Skin Appearance) Assessed Assessed, Localized Edema -Moisture (Jada-wound Skin Appearance) Assessed Assessed -Color (Jada-wound Skin Appearance) Assessed Assessed, Erythema -Temperature (Jada-wound Skin No Abnormality Appearance) (Pt Warm) -Ulcer Cleansing Soap and Water Soap and Water Soap and Water -Foul Odor after Cleansing No No -Anesthetic Used 5% Lidocaine 5% Lidocaine 5% Lidocaine Gel Gel Gel #8 L Leon -Current Size (cm) - Length 1.5 0.1 1.2 -Current Size (cm) - Width 2.0 0.1 1.9 -Current Size (cm) - Depth 0.2 0.1 0.1 -Total Square Cm 3.00 0.01 2.28 -Exudate Amt Small None Present -Exudate Type Serosanguineous -Wound Margin Distinct, Distinct, Distinct, Outline Outline Outline Attached Attached Attached -Granulation Amt Medium (34-66%) -Granulation Quality Red -Necrosis Amt Small (1-33%) -Necrotic Tissue Type Adherent Slough -Texture (Jada-wound Skin Appearance) Assessed Assessed Assessed -Moisture (Jada-wound Skin Appearance) Assessed Assessed Assessed -Color (Jada-wound Skin Appearance) Assessed Assessed Assessed -Temperature (Jada-wound Skin No Abnormality No Abnormality No Abnormality Appearance) (Pt Warm) (Pt Warm) (Pt Warm) -Ulcer Cleansing Soap and Water Soap and Water Soap and Water -Foul Odor after Cleansing No No -Anesthetic Used 5% Lidocaine 5% Lidocaine 5% Lidocaine Gel Gel Gel -Wound Comment(s) scab scabbed with dry blood Left Calf (cm) 37.2 36.3 37.5 Left Ankle (cm) 22.0 21.7 22 WC - Nurse 2 - General Ulcer CM Notes Start: 03/07/23 08:25 Freq: Status: Active Protocol: Activity Type Activity Date Activity User E-sign Co-sign Detail Recorded Client Recorded Date Recorded By Document 03/07/23 16:22 [id number] 03/07/23 16:26 Document 03/14/23 17:51 [id number] 03/14/23 17:54 PL Document 03/21/23 16:21 [id number] 03/21/23 16:23 03/07/23 03/14/23 03/21/23 16:22 17:51 16:21 Wound Center Nurse 2 #9 LT ANKLE -Time 09:01 08:56 09:20 -Correct Patient Yes Yes Yes -Correct Side, Site, Position Yes Yes Yes -Correct Procedure Yes Yes Yes -Procedure Performed Yes Yes Yes -Type of Procedure Debridement Debridement Debridement -Clinical Debridement Subcutaneous Subcutaneous Subcutaneous -Tissue Removed Subcutaneous Subcutaneous Subcutaneous -Post Debridement (cm) - Length 0.6 0.6 1.1 -Post Debridement (cm) - Width 0.4 0.5 0.8 -Post Debridement (cm) - Depth 0.2 0.1 0.4 -Total Square (Post) (cm) 0.24 0.30 0.88 -Area of Debridement (cm) - Length 0.6 0.6 1.1 -Area of Debridement (cm) - Width 0.4 0.5 0.8 -Total Square (Area) (cm) 0.24 0.30 0.88 -Tunneling No No No -Undermining/Tunneling No No No -Circular Undermining No No No -Wound/Ulcer Outcome Not Healed Not Healed Not Healed -Ulcer Cleansing Rinsed/ Rinsed/ Rinsed/ Irrigated with Irrigated with Irrigated with Saline Saline Saline -Foul Odor after Cleansing No No No -Bioengineered Tissue No No No -Bleeding Controlled with Pressure Pressure Pressure -Treatment Response Procedure Procedure Procedure Tolerated Well Tolerated Well Tolerated Well -Debridement - Subq, 1st 20sq cm Yes Yes Yes #8 L Leon -Time 09:01 08:56 09:20 -Correct Patient Yes Yes Yes -Correct Side, Site, Position Yes Yes Yes -Correct Procedure Yes Yes Yes -Procedure Performed Yes Yes Yes -Type of Procedure Debridement Debridement Debridement -Clinical Debridement Subcutaneous Subcutaneous Subcutaneous -Tissue Removed Subcutaneous Subcutaneous Subcutaneous -Post Debridement (cm) - Length 1.2 1.5 1.3 -Post Debridement (cm) - Width 1.4 1.8 0.9 -Post Debridement (cm) - Depth 0.1 0.1 0.1 -Total Square (Post) (cm) 1.68 2.70 1.17 -Area of Debridement (cm) - Length 1.2 1.5 1.3 -Area of Debridement (cm) - Width 1.4 1.8 0.9 -Total Square (Area) (cm) 1.68 2.70 1.17 -Tunneling No No No -Undermining/Tunneling No No No -Circular Undermining No No No -Wound/Ulcer Outcome Not Healed Not Healed Not Healed -Ulcer Cleansing Rinsed/ Rinsed/ Rinsed/ Irrigated with Irrigated with Irrigated with Saline Saline Saline -Foul Odor after Cleansing No No No -Bioengineered Tissue Yes Yes Yes -Type of Bioengineered Tissue Epifix 18mm Epifix 18mm Epifix 18mm Disc Disc Disc -Expiration Date 12/02/27 12/02/27 12/02/27 -Product Lot Number [id number] -Percent Used 100 100 100 -Bleeding Controlled with Pressure Pressure Pressure -Treatment Response Procedure Procedure Procedure Tolerated Well Tolerated Well Tolerated Well -Debridement - Subq, 1st 20sq cm No No No -Apply Skin Sub - 1st 25 sq cm - Legs 1 1 1 -Epifix 18mm Disc 3 3 3 Pain Scale: 0-10 Numeric Is Patient Pain Free? Yes Yes Yes - Nurse 3 - General Ulcer D/C NN Start: 03/07/23 08:25 Freq: Status: Active Protocol: Activity Type Activity Date Activity User E-sign Co-sign Detail Recorded Client Recorded Date Recorded By Document 03/07/23 09:20 KW Desktop 03/07/23 09:20 KW Document 03/14/23 09:14 JF Desktop 03/14/23 09:17 JF Document 03/21/23 09:42 DL Desktop 03/21/23 09:43 DL 03/07/23 03/14/23 03/21/23 09:20 09:14 09:42 Wound Care Center Nurse 3 #9 LT ANKLE -Ulcer Cleansing Rinsed/ Irrigated with Saline -Foul Odor after Cleansing No No -Other Dressing epifix -Primary Dressing Covered/Secured with Dry Gauze & Dry Gauze & Dry Gauze & Roll Gauze, Roll Gauze, Roll Gauze, Secured with Secured with Secured with Tape Tape Tape #8 L Leon -Foul Odor after Cleansing No -Other Dressing epifix -Primary Dressing Covered/Secured with Dry Gauze & Dry Gauze & Dry Gauze & Roll Gauze, Roll Gauze, Roll Gauze, Secured with Secured with Secured with Tape Tape Tape -Other Covering tubigrip Left -Tubular Bandage Single Layer Single Layer -Size of Tubigrip Used Size D Size D -Size D ($) 1 1 Treatment Response Procedure Tolerated Well Pain Scale: 0-10 Numeric Is Patient Pain Free? Yes Yes Yes - Visit Discharge Discharge Condition Stable Stable Stable Ambulatory Status Ambulatory,Cane Ambulatory,Cane Ambulatory,Cane Transportation Private Auto Private Auto Accompanied by Medication Reconcilliation completed & No Yes provided to patient/care provider Clinical Summary of Care Provided Yes Yes Additional Wound Wound debrided: Left anterior lower extremity Laterality: Left Wound Grade/Stage: Miguel stage I Type of Debridement: Excisional debridement Anesthesia Used: 5% Lidocaine Gel Depth: Down to and including healthy tissue and in the subcutaneous layer Percentage of wound debrided: 100 Instrument Used: 5mm curette Tissue Removed: Fibrous, devitalized subcutaneous, biofilm, slough Severity: Fat Layer Exposed Amount of bleeding with debridement: Mild Bleeding Controlled with: Compression and gauze Patient tolerated procedure: Patient tolerated procedure well Assessment/Plan Assessment/Plan (1) Delayed wound healing: CODE(S): T14.8XXD - Other injury of unspecified body region, subsequent encounter (2) 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 layer exposed: CODE(S): L97.222 - 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 layer exposed (3) Non-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: CODE(S): L97.322 - Non-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 (4) Venous insufficiency of both lower extremities: CODE(S): I87.2 - Venous insufficiency (chronic) (peripheral) (5) COPD (chronic obstructive pulmonary disease): CODE(S): J44.9 - Chronic obstructive pulmonary disease, unspecified (6) DM type 2 (diabetes mellitus, type 2): CODE(S): E11.9 - Type 2 diabetes mellitus without complications QUALIFIERS: Diabetes mellitus complication status: with other specified complication Diabetes mellitus halfway insulin use: with halfway use Qualified Code(s): E11.69 - Type 2 diabetes mellitus with other specified complication; Z79.4 - termite helper (current) use of insulin (7) Hyperlipidemia: CODE(S): E78.5 - Hyperlipidemia, unspecified QUALIFIERS: Hyperlipidemia type: unspecified Qualified Code(s): E78.5 - Hyperlipidemia, unspecified (8) Chronic diastolic (congestive) heart failure: CODE(S): I50.32 - Chronic diastolic (congestive) heart failure (9) Longstanding persistent atrial fibrillation: CODE(S): I48.11 - Longstanding persistent atrial fibrillation PLAN: Plan Patient seen and evaluated I reviewed his previous treatment history by PCP. Patient had followed Dr. Anderson. Ulceration underwent debridement as noted in the clinical panel above. Ulceration to the left anterior lower extremity measures 1.1 cm x 0.9 cm x 0.1 cm. No signs of infection. EpiFix graft #6 applied to wound bed. Site dressed with Adaptic touch and anchored with Steri-Strips then dressed with dry sterile dressing. He was instructed to not get the dressing wet. They are to change outer layer as needed. Left lateral ankle measures 1.4 cm x 1.0 cm x 0.5 cm. Wound underwent debridement as noted in clinical panel above. Sunni applied to the wound and they will change daily. Anterior leg wound does demonstrate reduction in size from previous visit. Lateral ankle wound has increased in size vs previous visit. Discussed continued diabetic diet to ensure proper glucose control. Recent A1c 6.4%. Discussed that this is a good standing for control of his diabetes and will aid in wound healing. Discussed with to aid in daily foot checks as her is blind. Discussed wearing shoe gear at all times and to never go barefoot. Socks include barefoot. They voiced understanding of this today. Recommend continued follow-up with PCP for continued diabetic management. Discussed adequate protein intake to continue to aid in wound healing. Also discussed Negrito supplementation to aid in wound healing. Discussed signs and symptoms with the pertaining to infection. Discussed if she notices increasing redness about the wound margin spreading up the leg, any purulent drainage from the wound site, increasing foul odor from the wound, or if he experiences fever greater than 101 degree, nausea, vomiting, chills that these are signs of progressing infection and he needs to report to the ED. They voiced understanding of this today. The following work up and care recommendations were made: Dressing: EpiFix, Adaptic touch, Steri-Strips, dry sterile dressing. Change outer dressing as needed Wash: Do not get wet Tissue growth optimization: EpiFix Offload: Ensure anterior leg is not bumped and discussed no picking at skin sites. Vascular: DP and PT pulses palpable with adequate capillary fill time. However skin demonstrates trophic changes consistent with microvascular disease. Edema: No edema currently, has history of chronic venous stasis. Recommend continued compression stocking. Infection: No signs of infection. Pain: May take [id number] Tylenol extra strength for discomfort. Host factors: DM type II, chronic venous stasis, CHF, COPD, blindness I answered all the patient's questions. To return to the wound healing center in 2 weeks or call sooner if the patient has any questions or concerns.
== END 2023-04-02 23:59 | disposition home or self-care (01) ==
LOC: WC 08:15
PROVIDERS: PCP Family Medicine; Referring Provider Family Medicine; Visit Provider Student in an Organized Health Care Education/Training Program
DX: E11.622 Type 2 diabetes mellitus with other skin ulcer (principal); L97.322 Non-pressure 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 layer exposed; L97.222 Non-pressure chronic ulcer of left calf with fat layer exposed; J44.9 Chronic obstructive pulmonary disease, unspecified; I11.0 Hypertensive heart disease with heart failure; I50.32 Chronic diastolic (congestive) heart failure; E11.59 Type 2 diabetes mellitus with other circulatory complications; I48.11 Longstanding persistent atrial fibrillation; Z79.4 Long term (current) use of insulin; I87.2 Venous insufficiency (chronic) (peripheral); E78.5 Hyperlipidemia, unspecified
CPT/HCPCS: 11042; 15271; Q4186

== ENCOUNTER 2023-05-02 08:00 | Outpatient (RCR) | payer MEDICARE, OTHER, SELFPAY ==
[2023-04-03 00:18] VITALS: BP 123/72; PULSE 84; RESP 18; TEMP 36.4; BMI 31.4
[2023-04-11 08:16] VITALS: BP 134/74; PULSE 91; RESP 18; TEMP 36.4; BMI 31.4
--- NOTE | 2023-04-11 09:21 | PN.PCM_ITS ---
History of Present Illness Date of Service: 04/11/23 Chief Complaint: Left Leg Ulcer History of Wound: Mr. Turcios is a 72-year-old with PMHx of of diabetes mellitus type 2, venous insufficiency bilateral lower extremity, history of multiple ulcerations, HTN, HLD, COPD, A-fib, CHF. He presents back to the wound care center today accompanied by his for nonhealing left lower extremity ulceration. states he has either bumped his leg on something or picked at some skin on the front of his leg creating a new wound. They state they have been following with Dr. Anderson in [place] as well as PCP Dr. Olguin. They state occasional use of mupirocin topical ointment but otherwise have not been applying dressings to the site. They state the wound has been present for a few weeks and has not made much progress and thus they were referred to the wound care center for continued wound healing. He denies N/V/F/chills. He has no further complaints. Subjective Subjective Patient is a 73-year-old male who follows up to the wound care center today for a left lower extremity ulceration x 2. His states she has left graft in place and is only changing outer dressings as needed. He denies constitutional symptoms today. Denies further complaints today. Objective Data Objective Data Vital Signs: Vital Signs Temp Pulse Resp BP 97.6 F L 91 18 134/74 H 04/11/23 08:16 04/11/23 08:16 04/11/23 08:16 04/11/23 08:16 Weight: 114.015 kg Body Mass Index (BMI) 31.4 Physical Exam Const alert, oriented x3 and no apparent distress General Appearance: cooperative HEENT normocephalic Eyes General Eye: normal appearance of both eyes Neck General: normal visual inspection Lymph Lymphatic: no lymphadenopathy noted and no lymphedema noted Resp normal respiratory effort Cardio regular rate and regular rhythm Extremity normal capillary refill, no joint enlargement, no calf tenderness and no pedal edema Extremity Narrative: DP pulses palpable and PT pulses weakly palpable bilateral. CFT less than 3 seconds to the digits bilateral. Hair growth absent to digits of foot bilateral. Dermatological: Skin is thin and demonstrating trophic changes bilateral lower extremity. Skin is excessively dry with peeling/flaking consistent with diabetic autonomic neuropathy and microvascular disease. There is an ulceration noted to the anterior aspect overlying the tibial crest with healthy granular base. Ulceration noted to the lateral ankle with mixed fibrogranular layer. No signs of infection. Musculoskeletal: Muscle strength 5 of 5 age-appropriate. Decreased ankle range of motion in dorsiflexion with the knee extended without pain or crepitus bilateral. Decreased range of motion of the first metatarsophalangeal joint without pain or crepitus bilateral. There is hammertoe deformity of lesser digits bilateral without pain to palpation. Skin no rashes or lesions noted, skin turgor normal and no jaundice Neuro moves all extremities Debridement Note Debridement Note Wound debrided: Left anterior leg Laterality: Left Wound Grade/Stage: Miguel stage I Type of Debridement: Excisional debridement Anesthesia Used: 5% Lidocaine Gel Depth: Down to and including healthy tissue and in the subcutaneous layer Percentage of wound debrided: 100 Instrument Used: 5mm curette Tissue Removed: Fibrous, devitalized subcutaneous, biofilm, slough Severity: Fat Layer Exposed Amount of bleeding with debridement: Mild Bleeding Controlled with: Compression and gauze Patient tolerated procedure: Patient tolerated procedure well Post-Debridement Measurements and Additional Note: Post-Debridement Measurements/Treatment - Nurse 1 - General Ulcer Assessment Start: 04/11/23 08:16 Freq: Status: Active Protocol: [email or web address] Activity Type Activity Date Activity User E-sign Co-sign Detail Recorded Client Recorded Date Recorded By Document 04/11/23 08:16 Desktop 04/11/23 08:26 DL 04/11/23 08:16 - Today's Visit Information Type of service Follow-up Visit (Physician/LABORER/KEY MAN ) Arrival Mode Ambulatory Transfer Assistance None Patient Identification Verified (Name & Yes ) Patient Requires Transmission-Based No Precautions Finger Stick Blood Sugar(mg/dl) (if 197 indicated): Blood Sugar Stated by Patient Height and Weight Body Mass Index (BMI) 31.4 BMI Classification Obese Vital Signs Temperature (97.8 F-99.1 F) 97.6 F L Temperature Source Temporal Pulse Rate (60-100) 91 Pulse Location Monitor Respiratory Rate (12-18) 18 Respiratory rate source Observation Blood Pressure (90/60-120/80) 134/74 H Blood Pressure Mean (mm Hg) 94 Source Monitor History Since Last Visit- (Skip if this is Patient's initial visit) Have you changed medications since your No last visit? Any new allergies or adverse reactions No Had a fall/change in ADL's that may No increase risk of falls Signs or symptoms of abuse and/or No neglect since last visit Have you been in the hospital since your No last visit? Has dressing in place as prescribed Yes Has compression in place as prescribed Yes Has offloadiing in place as prescribed Yes Experienced any changes in pain level or No management Left Footwear Regular Shoe Right Footwear Regular Shoe Pain Scale: 0-10 Numeric Is Patient Pain Free? Yes WC - Nurse 1 - General Ulcer Measurement Start: 04/11/23 08:16 Freq: Status: Active Protocol: Activity Type Activity Date Activity User E-sign Co-sign Detail Recorded Client Recorded Date Recorded By Document 04/11/23 08:16 DL Desktop 04/11/23 08:26 DL 04/11/23 08:16 Wound Center Nurse 1 #9 LT ANKLE -Current Size (cm) - Length 1.4 -Current Size (cm) - Width 0.8 -Current Size (cm) - Depth 0.3 -Total Square Cm 1.12 -Exudate Amt Small -Exudate Type Serosanguineous -Wound Margin Distinct, Outline Attached -Granulation Amt Small (1-33%) -Granulation Quality [place] -Necrosis Amt Large (67-100%) -Necrotic Tissue Type Adherent Slough -Structure Exposed N/A -Texture (Jada-wound Skin Appearance) Scarring -Moisture (Jada-wound Skin Appearance) Dry/Scaly -Color (Jada-wound Skin Appearance) Hemosiderin Staining -Temperature (Jada-wound Skin No Abnormality Appearance) (Pt Warm) -Tenderness on Palpation (Jada-wound No Skin Appearance) -Ulcer Cleansing Soap and Water -Foul Odor after Cleansing No -Anesthetic Used 5% Lidocaine Gel #8 L Leon -Current Size (cm) - Length 0.1 -Current Size (cm) - Width 0.1 -Current Size (cm) - Depth 0.1 -Total Square Cm 0.01 -Exudate Amt None Present -Wound Margin Thickened -Granulation Amt None Present (0 %) -Necrosis Amt Medium (34-66%) -Necrotic Tissue Type Eschar -Structure Exposed N/A -Texture (Jada-wound Skin Appearance) Scarring -Moisture (Jada-wound Skin Appearance) Dry/Scaly -Color (Jada-wound Skin Appearance) Hemosiderin Staining -Temperature (Jada-wound Skin No Abnormality Appearance) (Pt Warm) -Tenderness on Palpation (Jada-wound No Skin Appearance) -Ulcer Cleansing Soap and Water -Foul Odor after Cleansing No -Anesthetic Used 5% Lidocaine Gel Left Calf (cm) 38 Left Ankle (cm) 21.6 WC - Nurse 3 - General Ulcer D/C NN Start: 04/11/23 08:16 Freq: Status: Active Protocol: Activity Type Activity Date Activity User E-sign Co-sign Detail Recorded Client Recorded Date Recorded By Document 04/11/23 09:01 DL Desktop 04/11/23 09:03 DL 04/11/23 09:01 Wound Care Center Nurse 3 #9 LT ANKLE -Other Dressing epi -Primary Dressing Covered/Secured with Dry Gauze & Roll Gauze, Secured with Tape #8 L Leon -Other Dressing epi -Primary Dressing Covered/Secured with Dry Gauze & Roll Gauze, Secured with Tape Left -Tubular Bandage Single Layer -Size of Tubigrip Used Size D -Size D ($) 1 Treatment Response Procedure Tolerated Well Pain Scale: 0-10 Numeric Is Patient Pain Free? Yes WC - Visit Discharge Discharge Condition Stable Ambulatory Status Ambulatory,Cane Transportation Private Auto Accompanied by Notes: dressing applied per ANNE MARIE Gillis today Additional Wound Wound debrided: Left lateral ankle Laterality: Left Wound Grade/Stage: Miguel stage I Type of Debridement: Excisional debridement Anesthesia Used: 5% Lidocaine Gel Depth: Down to and including healthy tissue and in the subcutaneous layer Percentage of wound debrided: 100 Instrument Used: 5mm curette Tissue Removed: Fibrous, devitalized subcutaneous, biofilm, slough Severity: Fat Layer Exposed Amount of bleeding with debridement: Mild Bleeding Controlled with: Compression and gauze Patient tolerated procedure: Patient tolerated procedure well Assessment/Plan Assessment/Plan (1) Non-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: CODE(S): L97.322 - Non-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 (2) Delayed wound healing: CODE(S): T14.8XXD - Other injury of unspecified body region, subsequent encounter (3) 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 layer exposed: CODE(S): L97.222 - 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 layer exposed (4) Venous insufficiency of both lower extremities: CODE(S): I87.2 - Venous insufficiency (chronic) (peripheral) (5) DM type 2 (diabetes mellitus, type 2): CODE(S): E11.9 - Type 2 diabetes mellitus without complications QUALIFIERS: Diabetes mellitus complication status: with other specified complication Diabetes mellitus termite control representative insulin use: with termite control representative use Qualified Code(s): E11.69 - Type 2 diabetes mellitus with other specified complication; Z79.4 - skilled nursing (current) use of insulin (6) COPD (chronic obstructive pulmonary disease): CODE(S): J44.9 - Chronic obstructive pulmonary disease, unspecified (7) Hyperlipidemia: CODE(S): E78.5 - Hyperlipidemia, unspecified QUALIFIERS: Hyperlipidemia type: unspecified Qualified Code(s): E78.5 - Hyperlipidemia, unspecified (8) Chronic diastolic (congestive) heart failure: CODE(S): I50.32 - Chronic diastolic (congestive) heart failure (9) Longstanding persistent atrial fibrillation: CODE(S): I48.11 - Longstanding persistent atrial fibrillation PLAN: Plan Patient seen and evaluated I reviewed his previous treatment history by PCP. Patient had followed Dr. Anderson. Ulceration underwent debridement as noted in the clinical panel above. Ulceration to the left anterior lower extremity measures 0.5 cm x 0.4 cm x 0.1 cm. No signs of infection. EpiFix graft #7 applied to wound bed. Site dressed with Adaptic touch and anchored with Steri-Strips then dressed with dry sterile dressing. He was instructed to not get the dressing wet. They are to change outer layer as needed. Left lateral ankle measures 1.5 cm x 1.0 cm x 0.4 cm. Wound underwent debridement as noted in clinical panel above. Sunni applied to the wound and they will change daily. Anterior leg wound does demonstrate reduction in size from previous visit. Lateral ankle wound has increased in size vs previous visit. Discussed continued diabetic diet to ensure proper glucose control. Recent A1c 6.4%. Discussed that this is a good standing for control of his diabetes and will aid in wound healing. Discussed with to aid in daily foot checks as her is blind. Discussed wearing shoe gear at all times and to never go barefoot. Socks include barefoot. They voiced understanding of this today. Recommend continued follow-up with PCP for continued diabetic management. Discussed adequate protein intake to continue to aid in wound healing. Also discussed Negrito supplementation to aid in wound healing. Discussed signs and symptoms with the pertaining to infection. Discussed if she notices increasing redness about the wound margin spreading up the leg, any purulent drainage from the wound site, increasing foul odor from the wound, or if he experiences fever greater than 101 degree, nausea, vomiting, chills that these are signs of progressing infection and he needs to report to the ED. They voiced understanding of this today. The following work up and care recommendations were made: Dressing: EpiFix, Adaptic touch, Steri-Strips, dry sterile dressing. Change outer dressing as needed Wash: Do not get wet Tissue growth optimization: EpiFix Offload: Ensure anterior leg is not bumped and discussed no picking at skin sites. Vascular: DP and PT pulses palpable with adequate capillary fill time. However skin demonstrates trophic changes consistent with microvascular disease. Edema: No edema currently, has history of chronic venous stasis. Recommend continued compression stocking. Infection: No signs of infection. Pain: May take [id number] Tylenol extra strength for discomfort. Host factors: DM type II, chronic venous stasis, CHF, COPD, blindness I answered all the patient's questions. To return to the wound healing center in 1 week or call sooner if the patient has any questions or concerns.
[2023-04-18 08:01] VITALS: BP 135/71; PULSE 98; RESP 16; TEMP 36.3; BMI 31.4
--- NOTE | 2023-04-18 09:30 | PN.PCM_ITS ---
History of Present Illness Date of Service: 04/18/23 Chief Complaint: Left Leg Ulcer History of Wound: Mr. Turcios is a 72-year-old with PMHx of of diabetes mellitus type 2, venous insufficiency bilateral lower extremity, history of multiple ulcerations, HTN, HLD, COPD, A-fib, CHF. He presents back to the wound care center today accompanied by his for nonhealing left lower extremity ulceration. states he has either bumped his leg on something or picked at some skin on the front of his leg creating a new wound. They state they have been following with Dr. Anderson in [place] as well as PCP Dr. Olguin. They state occasional use of mupirocin topical ointment but otherwise have not been applying dressings to the site. They state the wound has been present for a few weeks and has not made much progress and thus they were referred to the wound care center for continued wound healing. He denies N/V/F/chills. He has no further complaints. Subjective Subjective Patient is a 73-year-old male who follows up to the wound care center today for a left lower extremity ulceration x 2. His states she has left graft in place and is only changing outer dressings as needed. She does state that he does not keep feet elevated as much as he should. He denies constitutional symptoms today. Denies further complaints today. Objective Data Objective Data Vital Signs: Vital Signs Temp Pulse Resp BP 97.4 F L 98 16 135/71 H 04/18/23 08:01 04/18/23 08:01 04/18/23 08:01 04/18/23 08:01 Weight: 114.015 kg Body Mass Index (BMI) 31.4 Physical Exam Const alert, oriented x3 and no apparent distress General Appearance: cooperative HEENT normocephalic Eyes General Eye: normal appearance of both eyes Neck General: normal visual inspection Lymph Lymphatic: no lymphadenopathy noted and no lymphedema noted Resp normal respiratory effort Cardio regular rate and regular rhythm Extremity normal capillary refill, no joint enlargement, no calf tenderness and no pedal edema Extremity Narrative: DP pulses palpable and PT pulses weakly palpable bilateral. CFT less than 3 seconds to the digits bilateral. Hair growth absent to digits of foot bilateral. Dermatological: Skin is thin and demonstrating trophic changes bilateral lower extremity. Skin is excessively dry with peeling/flaking consistent with diabetic autonomic neuropathy and microvascular disease. There is an ulceration noted to the anterior aspect overlying the tibial crest with healthy granular base. Ulceration noted to the lateral ankle with mixed fibrogranular layer. No signs of infection. Musculoskeletal: Muscle strength 5 of 5 age-appropriate. Decreased ankle range of motion in dorsiflexion with the knee extended without pain or crepitus bilateral. Decreased range of motion of the first metatarsophalangeal joint without pain or crepitus bilateral. There is hammertoe deformity of lesser digits bilateral without pain to palpation. Skin no rashes or lesions noted, skin turgor normal and no jaundice Neuro moves all extremities Debridement Note Debridement Note Wound debrided: Left anterior lower extremity Laterality: Left Wound Grade/Stage: Miguel stage I Type of Debridement: Excisional debridement Anesthesia Used: 5% Lidocaine Gel Depth: Down to and including healthy tissue and in the subcutaneous layer Percentage of wound debrided: 100 Instrument Used: 5mm curette Tissue Removed: Fibrous, devitalized subcutaneous, biofilm, slough Severity: Fat Layer Exposed Amount of bleeding with debridement: Mild Bleeding Controlled with: Compression and gauze Patient tolerated procedure: Patient tolerated procedure well Post-Debridement Measurements and Additional Note: Post-Debridement Measurements/Treatment - Nurse 1 - General Ulcer Assessment Start: 04/11/23 08:16 Freq: Status: Active Protocol: OLIVIA Activity Type Activity Date Activity User E-sign Co-sign Detail Recorded Client Recorded Date Recorded By Document 04/11/23 08:16 DL Desktop 04/11/23 08:26 DL Document 04/18/23 08:01 NRL Desktop 04/18/23 08:14 NR 04/11/23 04/18/23 08:16 08:01 - Today's Visit Information Type of service Follow-up Visit Follow-up Visit (Physician/SEWING PATTERN LAYOUT TECHNICIAN (Physician/SEWING PATTERN LAYOUT TECHNICIAN ) ) Arrival Mode Ambulatory Ambulatory,Cane Transfer Assistance None Patient Identification Verified (Name & Yes Yes ) Patient Requires Transmission-Based No Precautions Finger Stick Blood Sugar(mg/dl) (if 197 indicated): Blood Sugar Stated by Patient Height and Weight Body Mass Index (BMI) 31.4 31.4 BMI Classification Obese Obese Vital Signs Temperature (97.8 F-99.1 F) 97.6 F L 97.4 F L Temperature Source Temporal Temporal Pulse Rate (60-100) 91 98 Pulse Location Monitor Monitor Respiratory Rate (12-18) 18 16 Respiratory rate source Observation Observation Blood Pressure (90/60-120/80) 134/74 H 135/71 H Blood Pressure Mean (mm Hg) 94 92 Source Monitor Monitor Position Sitting Blood Pressure Location Left Arm History Since Last Visit- (Skip if this is Patient's initial visit) Have you changed medications since your No No last visit? Any new allergies or adverse reactions No No Had a fall/change in ADL's that may No No increase risk of falls Signs or symptoms of abuse and/or No neglect since last visit Have you been in the hospital since your No No last visit? Has dressing in place as prescribed Yes Yes Has compression in place as prescribed Yes Yes Has offloadiing in place as prescribed Yes N/A Experienced any changes in pain level or No No management Left Footwear Regular Shoe Regular Shoe Right Footwear Regular Shoe Regular Shoe Pain Scale: 0-10 Numeric Is Patient Pain Free? Yes Yes WC - Nurse 1 - General Ulcer Measurement Start: 04/11/23 08:16 Freq: Status: Active Protocol: Activity Type Activity Date Activity User E-sign Co-sign Detail Recorded Client Recorded Date Recorded By Document 04/11/23 08:16 DL Desktop 04/11/23 08:26 DL Document 04/18/23 08:01 NRL Desktop 04/18/23 08:14 NRL 04/11/23 04/18/23 08:16 08:01 Wound Center Nurse 1 #9 LT ANKLE -Combined with other wound No -Current Size (cm) - Length 1.4 -Current Size (cm) - Width 0.8 -Current Size (cm) - Depth 0.3 -Total Square Cm 1.12 -Epithelialization Small 1-33% -Undermining/Tunneling No -Circular Undermining No -Exudate Amt Small Medium -Exudate Type Serosanguineous Serosanguineous -Wound Margin Distinct, Distinct, Outline Outline Attached Attached -Granulation Amt Small (1-33%) Small (1-33%) -Granulation Quality [place] -Slough/Fibrin Yes -Necrosis Amt Large (67-100%) Medium (34-66%) -Necrotic Tissue Type Adherent Slough Adherent Slough -Structure Exposed N/A -Texture (Jada-wound Skin Appearance) Scarring Assessed -Moisture (Jada-wound Skin Appearance) Dry/Scaly Assessed -Color (Jada-wound Skin Appearance) Hemosiderin Assessed Staining -Temperature (Jada-wound Skin No Abnormality No Abnormality Appearance) (Pt Warm) (Pt Warm) -Tenderness on Palpation (Jada-wound No No Skin Appearance) -Ulcer Cleansing Soap and Water Wound Cleanser -Foul Odor after Cleansing No No -Anesthetic Used 5% Lidocaine 5% Lidocaine Gel Gel #8 L Leon -Combined with other wound No -Current Size (cm) - Length 0.1 -Current Size (cm) - Width 0.1 -Current Size (cm) - Depth 0.1 -Total Square Cm 0.01 -Epithelialization Small 1-33% -Tunneling No -Undermining/Tunneling No -Exudate Amt None Present Medium -Exudate Type Serosanguineous -Wound Margin Thickened Distinct, Outline Attached -Granulation Amt None Present (0 Small (1-33%) %) -Granulation Quality [place] -Slough/Fibrin Yes -Necrosis Amt Medium (34-66%) Medium (34-66%) -Necrotic Tissue Type Eschar Adherent Slough -Structure Exposed N/A -Texture (Jada-wound Skin Appearance) Scarring Assessed -Moisture (Jada-wound Skin Appearance) Dry/Scaly Assessed -Color (Jada-wound Skin Appearance) Hemosiderin Assessed Staining -Temperature (Jada-wound Skin No Abnormality No Abnormality Appearance) (Pt Warm) (Pt Warm) -Tenderness on Palpation (Jada-wound No No Skin Appearance) -Ulcer Cleansing Soap and Water Wound Cleanser -Foul Odor after Cleansing No No -Anesthetic Used 5% Lidocaine 5% Lidocaine Gel Gel Left Calf (cm) 38 40.5 Left Ankle (cm) 21.6 22.0 WC - Nurse 2 - General Ulcer CM Notes Start: 04/11/23 08:16 Freq: Status: Active Protocol: Activity Type Activity Date Activity User E-sign Co-sign Detail Recorded Client Recorded Date Recorded By Document 04/11/23 16:38 PL [id number] 04/11/23 16:41 PL 04/11/23 16:38 Wound Center Nurse 2 #9 LT ANKLE -Time 08:41 -Correct Patient Yes -Correct Side, Site, Position Yes -Correct Procedure Yes -Procedure Performed Yes -Type of Procedure Debridement -Clinical Debridement Subcutaneous -Tissue Removed Subcutaneous -Post Debridement (cm) - Length 1.5 -Post Debridement (cm) - Width 1.0 -Post Debridement (cm) - Depth 0.4 -Total Square (Post) (cm) 1.50 -Area of Debridement (cm) - Length 1.5 -Area of Debridement (cm) - Width 1.0 -Total Square (Area) (cm) 1.50 -Tunneling No -Undermining/Tunneling No -Circular Undermining No -Wound/Ulcer Outcome Not Healed -Ulcer Cleansing Rinsed/ Irrigated with Saline -Foul Odor after Cleansing No -Bioengineered Tissue No -Bleeding Controlled with Pressure -Treatment Response Procedure Tolerated Well -Debridement - Subq, 1st 20sq cm Yes #8 L Leon -Time 08:41 -Correct Patient Yes -Correct Side, Site, Position Yes -Correct Procedure Yes -Procedure Performed Yes -Type of Procedure Debridement -Clinical Debridement Subcutaneous -Tissue Removed Subcutaneous -Post Debridement (cm) - Length 0.5 -Post Debridement (cm) - Width 0.4 -Post Debridement (cm) - Depth 0.1 -Total Square (Post) (cm) 0.20 -Area of Debridement (cm) - Length 0.5 -Area of Debridement (cm) - Width 0.4 -Total Square (Area) (cm) 0.20 -Tunneling No -Undermining/Tunneling No -Circular Undermining No -Wound/Ulcer Outcome Not Healed -Ulcer Cleansing Rinsed/ Irrigated with Saline -Foul Odor after Cleansing No -Bioengineered Tissue Yes -Type of Bioengineered Tissue Epifix 18mm Disc -Expiration Date 12/02/27 -Product Lot Number [id number] -Percent Used 100 -Bleeding Controlled with Pressure -Treatment Response Procedure Tolerated Well -Debridement - Subq, 1st 20sq cm No -Apply Skin Sub - 1st 25 sq cm - Legs 1 -Epifix 18mm Disc 3 Pain Scale: 0-10 Numeric Is Patient Pain Free? Yes WC - Nurse 3 - General Ulcer D/C NN Start: 04/11/23 08:16 Freq: Status: Active Protocol: Activity Type Activity Date Activity User E-sign Co-sign Detail Recorded Client Recorded Date Recorded By Document 04/11/23 09:01 DL Desktop 04/11/23 09:03 DL Document 04/18/23 08:59 KW Desktop 04/18/23 08:59 KW 04/11/23 04/18/23 09:01 08:59 Wound Care Center Nurse 3 #9 LT ANKLE -Other Dressing epi -Primary Dressing Covered/Secured with Dry Gauze & Dry Gauze & Roll Gauze, Roll Gauze, Secured with Secured with Tape Tape #8 L Leon -Other Dressing epi -Primary Dressing Covered/Secured with Dry Gauze & Dry Gauze & Roll Gauze, Roll Gauze, Secured with Secured with Tape Tape Left -Tubular Bandage Single Layer Single Layer -Size of Tubigrip Used Size D Size D -Size D ($) 1 1 Treatment Response Procedure Tolerated Well Pain Scale: 0-10 Numeric Is Patient Pain Free? Yes Yes WC - Visit Discharge Discharge Condition Stable Ambulatory Status Ambulatory,Cane Transportation Private Auto Accompanied by Notes: dressing applied per ANNE MARIE Gillis today Additional Wound Wound debrided: Left lateral ankle Laterality: Left Wound Grade/Stage: Miguel stage I Type of Debridement: Excisional debridement Anesthesia Used: 5% Lidocaine Gel Depth: Down to and including healthy tissue and in the subcutaneous layer Percentage of wound debrided: 100 Instrument Used: 5mm curette Tissue Removed: Fibrous, devitalized subcutaneous, biofilm, slough Severity: Fat Layer Exposed Amount of bleeding with debridement: Mild Bleeding Controlled with: Compression and gauze Patient tolerated procedure: Patient tolerated procedure well Assessment/Plan Assessment/Plan (1) Non-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: CODE(S): L97.322 - Non-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 (2) Delayed wound healing: CODE(S): T14.8XXD - Other injury of unspecified body region, subsequent encounter (3) 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 layer exposed: CODE(S): L97.222 - 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 layer exposed (4) Venous insufficiency of both lower extremities: CODE(S): I87.2 - Venous insufficiency (chronic) (peripheral) (5) DM type 2 (diabetes mellitus, type 2): CODE(S): E11.9 - Type 2 diabetes mellitus without complications QUALIFIERS: Diabetes mellitus keno terminal operator insulin use: with keno terminal operator use Diabetes mellitus complication status: with other specified complication Qualified Code(s): E11.69 - Type 2 diabetes mellitus with other specified complication; Z79.4 - half-way (current) use of insulin (6) COPD (chronic obstructive pulmonary disease): CODE(S): J44.9 - Chronic obstructive pulmonary disease, unspecified (7) Hyperlipidemia: CODE(S): E78.5 - Hyperlipidemia, unspecified QUALIFIERS: Hyperlipidemia type: unspecified Qualified Code(s): E78.5 - Hyperlipidemia, unspecified (8) Chronic diastolic (congestive) heart failure: CODE(S): I50.32 - Chronic diastolic (congestive) heart failure (9) Longstanding persistent atrial fibrillation: CODE(S): I48.11 - Longstanding persistent atrial fibrillation PLAN: Plan Patient seen and evaluated I reviewed his previous treatment history by PCP. Patient had followed Dr. Anderson. Ulceration underwent debridement as noted in the clinical panel above. Ulceration to the left anterior lower extremity measures 1.1 cm x 0.4 cm x 0.1 cm. No signs of infection. EpiFix graft #8 applied to wound bed. Site dressed with Adaptic touch and anchored with Steri-Strips then dressed with dry sterile dressing. He was instructed to not get the dressing wet. They are to change outer layer as needed. Left lateral ankle measures 1.2 cm x 1.0 cm x 0.4 cm. Wound underwent debridement as noted in clinical panel above. Sunni applied to the wound and they will change daily. Anterior leg wound does demonstrate slight increase with superficial skin tear in size from previous visit but overall improving. Lateral ankle wound has decreased in size vs previous visit. Discussed continued diabetic diet to ensure proper glucose control. Recent A1c 6.4%. Discussed that this is a good standing for control of his diabetes and will aid in wound healing. Discussed with to aid in daily foot checks as her is blind. Discussed wearing shoe gear at all times and to never go barefoot. Socks include barefoot. They voiced understanding of this today. Recommend continued follow-up with PCP for continued diabetic management. Discussed adequate protein intake to continue to aid in wound healing. Also discussed Negrito supplementation to aid in wound healing. Discussed signs and symptoms with the pertaining to infection. Discussed if she notices increasing redness about the wound margin spreading up the leg, any purulent drainage from the wound site, increasing foul odor from the wound, or if he experiences fever greater than 101 degree, nausea, vomiting, chills that these are signs of progressing infection and he needs to report to the ED. They voiced understanding of this today. The following work up and care recommendations were made: Dressing: EpiFix, Adaptic touch, Steri-Strips, dry sterile dressing. Change outer dressing as needed Wash: Do not get wet Tissue growth optimization: EpiFix Offload: Ensure anterior leg is not bumped and discussed no picking at skin sites. Vascular: DP and PT pulses palpable with adequate capillary fill time. However skin demonstrates trophic changes consistent with microvascular disease. Edema: No edema currently, has history of chronic venous stasis. Recommend continued compression stocking. Infection: No signs of infection. Pain: May take [id number] Tylenol extra strength for discomfort. Host factors: DM type II, chronic venous stasis, CHF, COPD, blindness I answered all the patient's questions. To return to the wound healing center in 2 weeks or call sooner if the patient has any questions or concerns.
[2023-05-02 08:05] VITALS: BP 124/73; PULSE 97; RESP 18; TEMP 36.3; BMI 31.4
--- NOTE | 2023-05-02 09:11 | PN.PCM_ITS ---
History of Present Illness Date of Service: 05/02/23 Chief Complaint: Left Leg Ulcer History of Wound: Mr. Turcios is a 72-year-old with PMHx of of diabetes mellitus type 2, venous insufficiency bilateral lower extremity, history of multiple ulcerations, HTN, HLD, COPD, A-fib, CHF. He presents back to the wound care center today accompanied by his for nonhealing left lower extremity ulceration. states he has either bumped his leg on something or picked at some skin on the front of his leg creating a new wound. They state they have been following with Dr. Anderson in [place] as well as PCP Dr. Olguin. They state occasional use of mupirocin topical ointment but otherwise have not been applying dressings to the site. They state the wound has been present for a few weeks and has not made much progress and thus they were referred to the wound care center for continued wound healing. He denies N/V/F/chills. He has no further complaints. Subjective Subjective Patient is a 73-year-old male who follows up to the wound care center today for a left lower extremity ulceration x 2. His states she has left graft in place and is only changing outer dressings as needed. She does state that he does not keep feet elevated as much as he should. States they had a good Thanksgiving. He denies constitutional symptoms today. Denies further complaints today. Objective Data Objective Data Vital Signs: Vital Signs Temp Pulse Resp BP O2 Del Method 97.4 F L 97 18 124/73 H Room Air 05/02/23 08:05 05/02/23 08:05 05/02/23 08:05 05/02/23 08:05 05/02/23 08:05 Oxygen Delivery Method Room Air Weight: 114.015 kg Body Mass Index (BMI) 31.4 Physical Exam Const alert, oriented x3 and no apparent distress General Appearance: cooperative HEENT normocephalic Eyes General Eye: normal appearance of both eyes Neck General: normal visual inspection Lymph Lymphatic: no lymphadenopathy noted and no lymphedema noted Resp normal respiratory effort Cardio regular rate and regular rhythm Extremity normal capillary refill, no joint enlargement, no calf tenderness and no pedal edema Extremity Narrative: DP pulses palpable and PT pulses weakly palpable bilateral. CFT less than 3 seconds to the digits bilateral. Hair growth absent to digits of foot bilateral. Dermatological: Skin is thin and demonstrating trophic changes bilateral lower extremity. Skin is excessively dry with peeling/flaking consistent with diabetic autonomic neuropathy and microvascular disease. There is an ulceration noted to the anterior aspect overlying the tibial crest which has healed, no signs of infection. Ulceration noted to the lateral ankle with mixed fibrogranular layer. No signs of infection. Musculoskeletal: Muscle strength 5 of 5 age-appropriate. Decreased ankle range of motion in dorsiflexion with the knee extended without pain or crepitus bilateral. Decreased range of motion of the first metatarsophalangeal joint without pain or crepitus bilateral. There is hammertoe deformity of lesser digits bilateral without pain to palpation. Skin no rashes or lesions noted, skin turgor normal and no jaundice Neuro moves all extremities Debridement Note Debridement Note Wound debrided: Left lateral ankle Laterality: Left Wound Grade/Stage: Miguel stage I Type of Debridement: Excisional debridement Anesthesia Used: 5% Lidocaine Gel Depth: Down to and including healthy tissue and in the subcutaneous layer Percentage of wound debrided: 100 Instrument Used: 5mm curette Tissue Removed: Fibrous, devitalized subcutaneous, biofilm, slough Severity: Fat Layer Exposed Amount of bleeding with debridement: Mild Bleeding Controlled with: Compression and gauze Patient tolerated procedure: Patient tolerated procedure well Post-Debridement Measurements and Additional Note: Post-Debridement Measurements/Treatment - Nurse 1 - General Ulcer Assessment Start: 04/11/23 08:16 Freq: Status: Active Protocol: [email or web address] Activity Type Activity Date Activity User E-sign Co-sign Detail Recorded Client Recorded Date Recorded By Document 04/11/23 08:16 DL Desktop 04/11/23 08:26 DL Document 04/18/23 08:01 NRL Desktop 04/18/23 08:14 NRL Document 05/02/23 08:05 KW Desktop 05/02/23 08:16 KW 04/11/23 04/18/23 05/02/23 08:16 08:01 08:05 - Today's Visit Information Type of service Follow-up Visit Follow-up Visit Follow-up Visit (Physician/NON CLINICAL ADVISOR (Physician/NON CLINICAL ADVISOR (Physician/NON CLINICAL ADVISOR ) ) ) Arrival Mode Ambulatory Ambulatory,Cane Ambulatory,Cane Transfer Assistance None Accompanied by Patient Identification Verified (Name & Yes Yes Yes ) Patient Requires Transmission-Based No Precautions Finger Stick Blood Sugar(mg/dl) (if 197 indicated): Blood Sugar Stated by Patient Height and Weight Body Mass Index (BMI) 31.4 31.4 31.4 BMI Classification Obese Obese Obese Vital Signs Temperature (97.8 F-99.1 F) 97.6 F L 97.4 F L 97.4 F L Temperature Source Temporal Temporal Temporal Pulse Rate (60-100) 91 98 97 Pulse Location Monitor Monitor Monitor Respiratory Rate (12-18) 18 16 18 Respiratory rate source Observation Observation Observation Oxygen Delivery Method Room Air Blood Pressure (90/60-120/80) 134/74 H 135/71 H 124/73 H Blood Pressure Mean (mm Hg) 94 92 90 Source Monitor Monitor Monitor Position Sitting Sitting Blood Pressure Location Left Arm Left Arm History Since Last Visit- (Skip if this is Patient's initial visit) Have you changed medications since your No No No last visit? Any new allergies or adverse reactions No No No Had a fall/change in ADL's that may No No No increase risk of falls Signs or symptoms of abuse and/or No No neglect since last visit Have you been in the hospital since your No No No last visit? Has dressing in place as prescribed Yes Yes Yes Has compression in place as prescribed Yes Yes Yes Has offloadiing in place as prescribed Yes N/A No Experienced any changes in pain level or No No No management Left Footwear Regular Shoe Regular Shoe Right Footwear Regular Shoe Regular Shoe Pain Scale: 0-10 Numeric Is Patient Pain Free? Yes Yes Yes WC - Nurse 1 - General Ulcer Measurement Start: 04/11/23 08:16 Freq: Status: Active Protocol: Activity Type Activity Date Activity User E-sign Co-sign Detail Recorded Client Recorded Date Recorded By Document 04/11/23 08:16 DL Desktop 04/11/23 08:26 DL Document 04/18/23 08:01 NRL Desktop 04/18/23 08:14 NRL Document 05/02/23 08:05 KW Desktop 05/02/23 08:16 KW 04/11/23 04/18/23 05/02/23 08:16 08:01 08:05 Wound Center Nurse 1 #9 LT ANKLE -Combined with other wound No -Current Size (cm) - Length 1.4 1.1 -Current Size (cm) - Width 0.8 1.7 -Current Size (cm) - Depth 0.3 0.2 -Total Square Cm 1.12 1.87 -Epithelialization Small 1-33% -Undermining/Tunneling No -Circular Undermining No -Exudate Amt Small Medium Small -Exudate Type Serosanguineous Serosanguineous Serosanguineous -Wound Margin Distinct, Distinct, Thickened Outline Outline Attached Attached -Granulation Amt Small (1-33%) Small (1-33%) Small (1-33%) -Granulation Quality [place] -Slough/Fibrin Yes -Necrosis Amt Large (67-100%) Medium (34-66%) Large (67-100%) -Necrotic Tissue Type Adherent Slough Adherent Slough Adherent Slough -Structure Exposed N/A -Texture (Jada-wound Skin Appearance) Scarring Assessed Assessed,Callus -Moisture (Jada-wound Skin Appearance) Dry/Scaly Assessed Assessed -Color (Jada-wound Skin Appearance) Hemosiderin Assessed Assessed Staining -Temperature (Jada-wound Skin No Abnormality No Abnormality No Abnormality Appearance) (Pt Warm) (Pt Warm) (Pt Warm) -Tenderness on Palpation (Jada-wound No No Skin Appearance) -Ulcer Cleansing Soap and Water Wound Cleanser Soap and Water -Foul Odor after Cleansing No No -Anesthetic Used 5% Lidocaine 5% Lidocaine 5% Lidocaine Gel Gel Gel #8 L Leon -Combined with other wound No -Current Size (cm) - Length 0.1 0.4 -Current Size (cm) - Width 0.1 0.3 -Current Size (cm) - Depth 0.1 0.1 -Total Square Cm 0.01 0.12 -Epithelialization Small 1-33% -Tunneling No -Undermining/Tunneling No -Exudate Amt None Present Medium -Exudate Type Serosanguineous -Wound Margin Thickened Distinct, Outline Attached -Granulation Amt None Present (0 Small (1-33%) %) -Granulation Quality [place] -Slough/Fibrin Yes -Necrosis Amt Medium (34-66%) Medium (34-66%) -Necrotic Tissue Type Eschar Adherent Slough -Structure Exposed N/A -Texture (Jada-wound Skin Appearance) Scarring Assessed -Moisture (Jada-wound Skin Appearance) Dry/Scaly Assessed -Color (Jada-wound Skin Appearance) Hemosiderin Assessed Staining -Temperature (Jada-wound Skin No Abnormality No Abnormality No Abnormality Appearance) (Pt Warm) (Pt Warm) (Pt Warm) -Tenderness on Palpation (Jada-wound No No Skin Appearance) -Ulcer Cleansing Soap and Water Wound Cleanser Soap and Water -Foul Odor after Cleansing No No -Anesthetic Used 5% Lidocaine 5% Lidocaine 5% Lidocaine Gel Gel Gel -Wound Comment(s) scabbed Left Calf (cm) 38 40.5 38 Left Ankle (cm) 21.6 22.0 22 WC - Nurse 2 - General Ulcer CM Notes Start: 04/11/23 08:16 Freq: Status: Active Protocol: Activity Type Activity Date Activity User E-sign Co-sign Detail Recorded Client Recorded Date Recorded By Document 04/11/23 16:38 PL [id number] 04/11/23 16:41 PL Document 04/18/23 16:06 PL [id number] 04/18/23 16:09 PL 04/11/23 04/18/23 16:38 16:06 Wound Center Nurse 2 #9 LT ANKLE -Time 08:41 08:34 -Correct Patient Yes Yes -Correct Side, Site, Position Yes Yes -Correct Procedure Yes Yes -Procedure Performed Yes Yes -Type of Procedure Debridement Debridement -Clinical Debridement Subcutaneous Subcutaneous -Tissue Removed Subcutaneous Subcutaneous -Post Debridement (cm) - Length 1.5 1.2 -Post Debridement (cm) - Width 1.0 1.0 -Post Debridement (cm) - Depth 0.4 0.4 -Total Square (Post) (cm) 1.50 1.20 -Area of Debridement (cm) - Length 1.5 1.2 -Area of Debridement (cm) - Width 1.0 1.0 -Total Square (Area) (cm) 1.50 1.20 -Tunneling No No -Undermining/Tunneling No No -Circular Undermining No No -Wound/Ulcer Outcome Not Healed Not Healed -Ulcer Cleansing Rinsed/ Rinsed/ Irrigated with Irrigated with Saline Saline -Foul Odor after Cleansing No No -Bioengineered Tissue No No -Bleeding Controlled with Pressure Pressure -Treatment Response Procedure Procedure Tolerated Well Tolerated Well -Debridement - Subq, 1st 20sq cm Yes Yes #8 L Leon -Time 08:41 08:34 -Correct Patient Yes Yes -Correct Side, Site, Position Yes Yes -Correct Procedure Yes Yes -Procedure Performed Yes Yes -Type of Procedure Debridement Debridement -Clinical Debridement Subcutaneous Subcutaneous -Tissue Removed Subcutaneous Subcutaneous -Post Debridement (cm) - Length 0.5 1.1 -Post Debridement (cm) - Width 0.4 0.5 -Post Debridement (cm) - Depth 0.1 0.1 -Total Square (Post) (cm) 0.20 0.55 -Area of Debridement (cm) - Length 0.5 1.1 -Area of Debridement (cm) - Width 0.4 0.5 -Total Square (Area) (cm) 0.20 0.55 -Tunneling No No -Undermining/Tunneling No No -Circular Undermining No No -Wound/Ulcer Outcome Not Healed Not Healed -Ulcer Cleansing Rinsed/ Rinsed/ Irrigated with Irrigated with Saline Saline -Foul Odor after Cleansing No No -Bioengineered Tissue Yes Yes -Type of Bioengineered Tissue Epifix 18mm Epifix 18mm Disc Disc -Expiration Date 12/02/27 12/02/27 -Product Lot Number [id number] -Percent Used 100 100 -Bleeding Controlled with Pressure Pressure -Treatment Response Procedure Procedure Tolerated Well Tolerated Well -Debridement - Subq, 1st 20sq cm No No -Apply Skin Sub - 1st 25 sq cm - Legs 1 1 -Epifix 18mm Disc 3 3 Pain Scale: 0-10 Numeric Is Patient Pain Free? Yes Yes WC - Nurse 3 - General Ulcer D/C NN Start: 04/11/23 08:16 Freq: Status: Active Protocol: Activity Type Activity Date Activity User E-sign Co-sign Detail Recorded Client Recorded Date Recorded By Document 04/11/23 09:01 DL Desktop 04/11/23 09:03 DL Document 04/18/23 08:59 KW Desktop 04/18/23 08:59 KW Document 05/02/23 08:55 KW Desktop 05/02/23 08:55 KW 04/11/23 04/18/23 05/02/23 09:01 08:59 08:55 Wound Care Center Nurse 3 #9 LT ANKLE -Other Dressing epi -Primary Dressing Covered/Secured with Dry Gauze & Dry Gauze & Dry Gauze & Roll Gauze, Roll Gauze, Roll Gauze, Secured with Secured with Secured with Tape Tape Tape #8 L Leon -Other Dressing epi -Primary Dressing Covered/Secured with Dry Gauze & Dry Gauze & Roll Gauze, Roll Gauze, Secured with Secured with Tape Tape Left -Tubular Bandage Single Layer Single Layer Single Layer -Size of Tubigrip Used Size D Size D Size D -Size D ($) 1 1 1 Treatment Response Procedure Tolerated Well Pain Scale: 0-10 Numeric Is Patient Pain Free? Yes Yes Yes WC - Visit Discharge Discharge Condition Stable Stable Ambulatory Status Ambulatory,Cane Ambulatory,Cane Transportation Private Auto Private Auto Accompanied by Medication Reconcilliation completed & No provided to patient/care provider Clinical Summary of Care Provided Yes Notes: dressing applied per ANNE MARIE Gillis today Assessment/Plan Assessment/Plan (1) Non-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: CODE(S): L97.322 - Non-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 (2) Delayed wound healing: CODE(S): T14.8XXD - Other injury of unspecified body region, subsequent encounter (3) 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 layer exposed: CODE(S): L97.222 - 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 layer exposed (4) Venous insufficiency of both lower extremities: CODE(S): I87.2 - Venous insufficiency (chronic) (peripheral) (5) DM type 2 (diabetes mellitus, type 2): CODE(S): E11.9 - Type 2 diabetes mellitus without complications QUALIFIERS: Diabetes mellitus retirement insulin use: with long te rm use Diabetes mellitus complication status: with other specified complication Qualified Code(s): E11.69 - Type 2 diabetes mellitus with other specified complication; Z79.4 - 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) use of insulin (6) COPD (chronic obstructive pulmonary disease): CODE(S): J44.9 - Chronic obstructive pulmonary disease, unspecified (7) Hyperlipidemia: CODE(S): E78.5 - Hyperlipidemia, unspecified QUALIFIERS: Hyperlipidemia type: unspecified Qualified Code(s): E78.5 - Hyperlipidemia, unspecified (8) Chronic diastolic (congestive) heart failure: CODE(S): I50.32 - Chronic diastolic (congestive) heart failure (9) Longstanding persistent atrial fibrillation: CODE(S): I48.11 - Longstanding persistent atrial fibrillation PLAN: Plan Patient seen and evaluated I reviewed his previous treatment history by PCP. Patient had followed Dr. Anderson. Ulceration underwent debridement as noted in the clinical panel above. Ulceration to the left anterior lower extremity measures 0.1 cm x 0.1 cm x 0.1 cm. No signs of infection. EpiFix graft #9 applied to wound bed. Site dressed with Adaptic touch and anchored with Steri-Strips then dressed with dry sterile dressing. He was instructed to not get the dressing wet. They are to change outer layer as needed. Left lateral ankle measures 1.2 cm x 0.9 cm x 0.4 cm. Wound underwent debridement as noted in clinical panel above. Sunni applied to the wound and they will change daily. Anterior leg wound does demonstrates decrease in size from previous visit and overall improving. Lateral ankle wound has decreased in size vs previous visit. Discussed continued diabetic diet to ensure proper glucose control. Recent A1c 6.4%. Discussed that this is a good standing for control of his diabetes and will aid in wound healing. Discussed with to aid in daily foot checks as her is blind. Discussed wearing shoe gear at all times and to never go barefoot. Socks include barefoot. They voiced understanding of this today. Recommend continued follow-up with PCP for continued diabetic management. Discussed adequate protein intake to continue to aid in wound healing. Also discussed Negrito supplementation to aid in wound healing. Discussed signs and symptoms with the pertaining to infection. Discussed if she notices increasing redness about the wound margin spreading up the leg, any purulent drainage from the wound site, increasing foul odor from the wound, or if he experiences fever greater than 101 degree, nausea, vomiting, chills that these are signs of progressing infection and he needs to report to the ED. They voiced understanding of this today. The following work up and care recommendations were made: Dressing: EpiFix, Adaptic touch, Steri-Strips, dry sterile dressing. Change outer dressing as needed Wash: Do not get wet Tissue growth optimization: EpiFix Offload: Ensure anterior leg is not bumped and discussed no picking at skin sites. Vascular: DP and PT pulses palpable with adequate capillary fill time. However skin demonstrates trophic changes consistent with microvascular disease. Edema: No edema currently, has history of chronic venous stasis. Recommend continued compression stocking. Infection: No signs of infection. Pain: May take [id number] Tylenol extra strength for discomfort. Host factors: DM type II, chronic venous stasis, CHF, COPD, blindness I answered all the patient's questions. To return to the wound healing center in 1 week or call sooner if the patient has any questions or concerns.
== END 2023-05-02 23:59 | disposition home or self-care (01) ==
LOC: WC 08:00
PROVIDERS: PCP Family Medicine; Referring Provider Family Medicine; Visit Provider Student in an Organized Health Care Education/Training Program
DX: E11.622 Type 2 diabetes mellitus with other skin ulcer (principal); L97.222 Non-pressure chronic ulcer of left calf with fat layer exposed; L97.322 Non-pressure 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 layer exposed; J44.9 Chronic obstructive pulmonary disease, unspecified; I11.0 Hypertensive heart disease with heart failure; I50.32 Chronic diastolic (congestive) heart failure; E11.59 Type 2 diabetes mellitus with other circulatory complications; I48.11 Longstanding persistent atrial fibrillation; Z79.4 Long term (current) use of insulin; E78.5 Hyperlipidemia, unspecified
CPT/HCPCS: 11042; 15271; Q4186

== ENCOUNTER → 2023-05-09 | Outpatient (CLI) | payer MEDICARE, OTHER, SELFPAY ==
[2023-05-09 10:24] LABS: Absolute Lymphocyte Count 2.12 X10^3/uL (0.83-4.51); Absolute Neutrophil Count 3.6 X10^3/uL (2.0-7.7); Basophil# 0.04 X10^3/uL; Basophil% 0.6 % (0-1); Eosinophil# 0.13 X10^3/uL; Hemoglobin 12.5 g/dL (13.0-16.5); Lymphocyte # 2.12 X10^3/ul (0.83-4.51); Lymphocyte % 32.1 % (19-41); Mean Corp Hgb Conc 32.1 g/dL (32-36); Mean Corpuscular Hgb 30.6 pg (27.0-32.0); Mean Corpuscular Volume 95.6 fL (80-94); Monocyte# 0.64 X10^3/uL; Monocyte% 9.7 % (0-10); NRBC Flagged by Analyzer 0 % (0-5); Neutrophil # 3.64 X10^3/uL (2.7-7.7); POSITIVE COUNT YES; RBC Distribution Width CV 14.2 % (11.6-14.6); RBC Distribution Width SD 49.8 fl (35.1-43.9); Red Blood Count 4.08 M/mm3 (4.6-6.2); White Blood Count 6.6 K/mm3 (4.4-11.0)
[2023-05-09 10:51] LABS: Differential Comment SCANNED; Differential Indicated SCAN CRITERIA MET; Platelet Estimate ADEQUATE (ADEQ)
[2023-05-09 10:59] LABS: ALB/GLOB Ratio 0.9 RATIO (0.9-2.4); AST(SGOT) 14 U/L (15-37); Alanine Aminotransfer ALT/SGPT 19 U/L (16-61); Albumin, Serum 3.4 g/dL (3.2-5.0); Alkaline Phosphatase 74 U/L (45-117); Anion Gap 1 (5-15); BUN 16 mg/dL (7-18); BUN/Creat Ratio 20.8 RATIO (10-20); Chloride 107 mmol/L (98-107); Creatinine, Serum 0.77 mg/dL (0.70-1.30); EST Glomerular Filtration Rate 105 mL/min (>60); Est Glom Filt Rate - Afr Amer 127 mL/min (>60); Globulin 3.9 g/dL (2.2-4.2); Glucose 119 mg/dL (74-106); Potassium 4.1 mmol/L (3.5-5.1); Protein, Total 7.3 g/dL (6.4-8.2); Sodium Level 138 mmol/L (136-145)
[2023-05-09 11:36] LABS: Hemoglobin A1c 6.5 % (3.8-5.6)
[2023-05-13 11:22] LABS: Microalbumin,Random Urine 9.3 mg/L (NO RANGE EST.); Microalbumin:Creatinine Ratio 6.5 mg/g CRE (<30 mg/g CRE)
== END | disposition home or self-care (01) ==
LOC: MFPLAB 09:37
PROVIDERS: PCP Family Medicine; Visit Provider Family Medicine
DX: H43.819 Vitreous degeneration, unspecified eye (principal); E11.49 Type 2 diabetes mellitus with other diabetic neurological complication
CPT/HCPCS: 36415; 80053; 82043; 82570; 83036; 85025

== ENCOUNTER → 2023-05-13 | Outpatient (CLI) | payer MEDICARE, OTHER, SELFPAY ==
--- NOTE | 2023-05-13 09:09 | RAD_ITS ---
STUDY: X-RAY CHEST REASON FOR EXAM: Male, 73 years old. Bronchiectasis, worse cough TECHNIQUE: PA and lateral views of the chest. COMPARISON: Comparison is made with prior study dated August 14, 2020. FINDINGS: Stable elevation of the posterior aspect of the left hemidiaphragm in keeping with a Bochdalek hernia. Stable increased markings at the lung bases worse on the left side suggests some bibasilar scarring. Normal size heart. Normal mediastinum and jewel. Normal visualized pulmonary arteries. Normal visualized aortic arch and descending thoracic aorta. Prior vertebroplasty of the T11 vertebrae. Loss of height of the T12 vertebrae. Normal visualized ribs, clavicles, and shoulders. There is no demonstrated abnormality of the visualized soft tissue structures of the upper abdomen. RAD/Chest PA and Lateral IMPRESSION: Stable elevation of the posterior aspect of the left hemidiaphragm with stable increased markings at the lung bases suggestive of scarring. Electronically Signed: Scar Alvarez MD at 9:57 EST ,
== END | disposition home or self-care (01) ==
PROVIDERS: PCP Family Medicine; Referring Provider Family Medicine; Visit Provider Family Medicine
DX: J47.9 Bronchiectasis, uncomplicated (principal)
CPT/HCPCS: 71046

== ENCOUNTER 2023-05-30 08:00 | Outpatient (RCR) | payer MEDICARE, OTHER, SELFPAY ==
[2023-05-03 00:35] VITALS: BP 124/73; PULSE 97; RESP 18; TEMP 36.3; BMI 31.4
[2023-05-09 08:09] VITALS: BP 133/63; PULSE 81; RESP 18; TEMP 36.4; BMI 31.4
--- NOTE | 2023-05-09 09:27 | PCM.WC.PN ---
History of Present Illness Date of Service: 05/09/23 Chief Complaint: Left Leg Ulcer History of Wound: Mr. Turcios is a 72-year-old with PMHx of of diabetes mellitus type 2, venous insufficiency bilateral lower extremity, history of multiple ulcerations, HTN, HLD, COPD, A-fib, CHF. He presents back to the wound care center today accompanied by his for nonhealing left lower extremity ulceration. states he has either bumped his leg on something or picked at some skin on the front of his leg creating a new wound. They state they have been following with Dr. Anderson in [place] as well as PCP Dr. Olguin. They state occasional use of mupirocin topical ointment but otherwise have not been applying dressings to the site. They state the wound has been present for a few weeks and has not made much progress and thus they were referred to the wound care center for continued wound healing. He denies N/V/F/chills. He has no further complaints. Subjective Subjective Patient is a 73-year-old male who follows up to the wound care center today for a left lower extremity ulceration x 2. His states she has left graft in place and is only changing outer dressings as needed. She does state that he does not keep feet elevated as much as he should. He will be seeing his PCP today for check up. He denies constitutional symptoms today. Denies further complaints today. Objective Data Objective Data Vital Signs: Vital Signs Temp Pulse Resp BP 97.5 F L 81 18 133/63 H 05/09/23 08:09 05/09/23 08:09 05/09/23 08:09 05/09/23 08:09 Weight: 114.015 kg Body Mass Index (BMI) 31.4 Physical Exam Const alert, oriented x3 and no apparent distress General Appearance: cooperative HEENT normocephalic Eyes General Eye: normal appearance of both eyes Neck General: normal visual inspection Lymph Lymphatic: no lymphadenopathy noted and no lymphedema noted Resp normal respiratory effort Cardio regular rate and regular rhythm Extremity normal capillary refill, no joint enlargement, no calf tenderness and no pedal edema Extremity Narrative: DP pulses palpable and PT pulses weakly palpable bilateral. CFT less than 3 seconds to the digits bilateral. Hair growth absent to digits of foot bilateral. Dermatological: Skin is thin and demonstrating trophic changes bilateral lower extremity. Skin is excessively dry with peeling/flaking consistent with diabetic autonomic neuropathy and microvascular disease. There is an ulceration noted to the anterior aspect overlying the tibial crest which has healed, no signs of infection. Ulceration noted to the lateral ankle with mixed fibrogranular layer. No signs of infection. Musculoskeletal: Muscle strength 5 of 5 age-appropriate. Decreased ankle range of motion in dorsiflexion with the knee extended without pain or crepitus bilateral. Decreased range of motion of the first metatarsophalangeal joint without pain or crepitus bilateral. There is hammertoe deformity of lesser digits bilateral without pain to palpation. Skin no rashes or lesions noted, skin turgor normal and no jaundice Neuro moves all extremities Debridement Note Debridement Note Wound debrided: Left lateral ankle Laterality: Left Wound Grade/Stage: Miguel stage I Type of Debridement: Excisional debridement Anesthesia Used: 5% Lidocaine Gel Depth: Down to and including healthy tissue and in the subcutaneous layer Percentage of wound debrided: 100 Instrument Used: 5mm curette Tissue Removed: Fibrous, devitalized subcutaneous, biofilm, slough Severity: Fat Layer Exposed Amount of bleeding with debridement: Mild Bleeding Controlled with: Compression and gauze Patient tolerated procedure: Patient tolerated procedure well Post-Debridement Measurements and Additional Note: Post-Debridement Measurements/Treatment - Nurse 1 - General Ulcer Assessment Start: 05/09/23 08:09 Freq: Status: Active Protocol: OLIVIA Activity Type Activity Date Activity User E-sign Co-sign Detail Recorded Client Recorded Date Recorded By Document 05/09/23 08:09 Desktop 05/09/23 08:19 05/09/23 08:09 - Today's Visit Information Type of service Follow-up Visit (Physician/PROCESS CONTROL TECHNICIAN ) Arrival Mode Ambulatory,Cane Transfer Assistance None Patient Identification Verified (Name & Yes ) Patient Requires Transmission-Based No Precautions Height and Weight Body Mass Index (BMI) 31.4 BMI Classification Obese Vital Signs Temperature (97.8 F-99.1 F) 97.5 F L Temperature Source Temporal Pulse Rate (60-100) 81 Pulse Location Monitor Respiratory Rate (12-18) 18 Respiratory rate source Observation Blood Pressure (90/60-120/80) 133/63 H Blood Pressure Mean (mm Hg) 86 Source Monitor History Since Last Visit- (Skip if this is Patient's initial visit) Any new allergies or adverse reactions No Had a fall/change in ADL's that may No increase risk of falls Signs or symptoms of abuse and/or No neglect since last visit Have you been in the hospital since your No last visit? Has dressing in place as prescribed Yes Has compression in place as prescribed Yes Has offloadiing in place as prescribed N/A Experienced any changes in pain level or No management Left Footwear Slipper Right Footwear Regular Shoe Pain Scale: 0-10 Numeric Is Patient Pain Free? Yes WC - Nurse 1 - General Ulcer Measurement Start: 05/09/23 08:09 Freq: Status: Active Protocol: Activity Type Activity Date Activity User E-sign Co-sign Detail Recorded Client Recorded Date Recorded By Document 05/09/23 08:09 DL Desktop 05/09/23 08:19 DL 05/09/23 08:09 Wound Center Nurse 1 #9 LT ANKLE -Current Size (cm) - Length 1 -Current Size (cm) - Width 0.7 -Current Size (cm) - Depth 0.3 -Total Square Cm 0.7 -Exudate Amt Small -Exudate Type Serosanguineous -Wound Margin Distinct, Outline Attached -Granulation Amt Large (67-100%) -Granulation Quality Red -Necrosis Amt Small (1-33%) -Necrotic Tissue Type Adherent Slough -Structure Exposed N/A -Texture (Jada-wound Skin Appearance) Scarring -Moisture (Jada-wound Skin Appearance) Dry/Scaly -Color (Jada-wound Skin Appearance) Hemosiderin Staining -Temperature (Jada-wound Skin No Abnormality Appearance) (Pt Warm) -Tenderness on Palpation (Jada-wound No Skin Appearance) -Ulcer Cleansing Soap and Water -Foul Odor after Cleansing No -Anesthetic Used 5% Lidocaine Gel Left Calf (cm) 38.7 Left Ankle (cm) 22.5 - Nurse 3 - General Ulcer D/C NN Start: 05/09/23 08:09 Freq: Status: Active Protocol: Activity Type Activity Date Activity User E-sign Co-sign Detail Recorded Client Recorded Date Recorded By Document 05/09/23 08:54 GM Desktop 05/09/23 08:55 GM 05/09/23 08:54 Wound Care Center Nurse 3 #9 LT ANKLE -Ulcer Cleansing Not Cleansed -Foul Odor after Cleansing No -Primary Dressing Covered/Secured with Dry Gauze & Roll Gauze, Secured with Tape Left -Lotion applied to leg before Yes compression wrap -Tubular Bandage Single Layer -Size of Tubigrip Used Size D -Size D ($) 1 Pain Scale: 0-10 Numeric Is Patient Pain Free? Yes Teaching: Wound Center Compression Wraps & Stockings -Person Taught Patient,Family -Teaching Method Discussion, Demonstration -Response to teaching Verbalize understanding Dressing Your Wound -Person Taught Patient,Family -Teaching Method Discussion, Demonstration -Response to teaching Verbalize understanding WC - Visit Discharge Discharge Condition Stable Ambulatory Status Ambulatory,Cane Transportation Private Auto Additional Wound Wound debrided: Left lower extremity Laterality: Left Wound Grade/Stage: Miguel stage I Type of Debridement: Excisional debridement Anesthesia Used: 5% Lidocaine Gel Depth: Down to and including healthy tissue and in the subcutaneous layer Percentage of wound debrided: 100 Instrument Used: 5mm curette Tissue Removed: Fibrous, devitalized subcutaneous, biofilm, slough Severity: Fat Layer Exposed Amount of bleeding with debridement: Mild Bleeding Controlled with: Compression and gauze Patient tolerated procedure: Patient tolerated procedure well Assessment/Plan Assessment/Plan (1) Non-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: CODE(S): L97.322 - Non-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 (2) 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 layer exposed: CODE(S): L97.222 - 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 layer exposed (3) Delayed wound healing: CODE(S): T14.8XXD - Other injury of unspecified body region, subsequent encounter (4) Venous insufficiency of both lower extremities: CODE(S): I87.2 - Venous insufficiency (chronic) (peripheral) (5) Longstanding persistent atrial fibrillation: CODE(S): I48.11 - Longstanding persistent atrial fibrillation (6) Chronic diastolic (congestive) heart failure: CODE(S): I50.32 - Chronic diastolic (congestive) heart failure (7) DM type 2 (diabetes mellitus, type 2): CODE(S): E11.9 - Type 2 diabetes mellitus without complications QUALIFIERS: Diabetes mellitus watermelon harvesting supervisor insulin use: with watermelon harvesting supervisor use Diabetes mellitus complication status: with other specified complication Qualified Code(s): E11.69 - Type 2 diabetes mellitus with other specified complication; Z79.4 - half-way (current) use of insulin (8) Hyperlipidemia: CODE(S): E78.5 - Hyperlipidemia, unspecified QUALIFIERS: Hyperlipidemia type: unspecified Qualified Code(s): E78.5 - Hyperlipidemia, unspecified (9) COPD (chronic obstructive pulmonary disease): CODE(S): J44.9 - Chronic obstructive pulmonary disease, unspecified PLAN: Plan Patient seen and evaluated I reviewed his previous treatment history by PCP. Patient had followed Dr. Anderson. Ulceration underwent debridement as noted in the clinical panel above. Ulceration to the left anterior lower extremity measures 0.8 cm x 0.4 cm x 0.1 cm. No signs of infection. EpiFix graft #10 applied to wound bed. Site dressed with Adaptic touch and anchored with Steri-Strips then dressed with dry sterile dressing. He was instructed to not get the dressing wet. They are to change outer layer as needed. Left lateral ankle measures 1.3 cm x 1.0 cm x 0.4 cm. Wound underwent debridement as noted in clinical panel above. Sunni applied to the wound and they will change daily. Anterior leg wound does demonstrates slight in size from previous visit secondary to superficial skin tear. Lateral ankle wound has remained same size vs previous visit. Discussed continued diabetic diet to ensure proper glucose control. Recent A1c 6.4%. Discussed that this is a good standing for control of his diabetes and will aid in wound healing. Discussed with to aid in daily foot checks as her is blind. Discussed wearing shoe gear at all times and to never go barefoot. Socks include barefoot. They voiced understanding of this today. Recommend continued follow-up with PCP for continued diabetic management. Discussed adequate protein intake to continue to aid in wound healing. Also discussed Negrito supplementation to aid in wound healing. Discussed signs and symptoms with the pertaining to infection. Discussed if she notices increasing redness about the wound margin spreading up the leg, any purulent drainage from the wound site, increasing foul odor from the wound, or if he experiences fever greater than 101 degree, nausea, vomiting, chills that these are signs of progressing infection and he needs to report to the ED. They voiced understanding of this today. The following work up and care recommendations were made: Dressing: EpiFix, Adaptic touch, Steri-Strips, dry sterile dressing. Change outer dressing as needed Wash: Do not get wet Tissue growth optimization: EpiFix Offload: Ensure anterior leg is not bumped and discussed no picking at skin sites. Vascular: DP and PT pulses palpable with adequate capillary fill time. However skin demonstrates trophic changes consistent with microvascular disease. Edema: No edema currently, has history of chronic venous stasis. Recommend continued compression stocking. Infection: No signs of infection. Pain: May take [id number] Tylenol extra strength for discomfort. Host factors: DM type II, chronic venous stasis, CHF, COPD, blindness I answered all the patient's questions. To return to the wound healing center in 1 week or call sooner if the patient has any questions or concerns.
[2023-05-16 08:10] VITALS: BP 119/77; PULSE 107; RESP 18; TEMP 35.9; BMI 31.4
--- NOTE | 2023-05-16 08:27 | PCM.WC.PN ---
History of Present Illness Date of Service: 05/16/23 Chief Complaint: Left Leg Ulcer History of Wound: Mr. Turcios is a 72-year-old with PMHx of of diabetes mellitus type 2, venous insufficiency bilateral lower extremity, history of multiple ulcerations, HTN, HLD, COPD, A-fib, CHF. He presents back to the wound care center today accompanied by his for nonhealing left lower extremity ulceration. states he has either bumped his leg on something or picked at some skin on the front of his leg creating a new wound. They state they have been following with Dr. Anderson in [place] as well as PCP Dr. Olguin. They state occasional use of mupirocin topical ointment but otherwise have not been applying dressings to the site. They state the wound has been present for a few weeks and has not made much progress and thus they were referred to the wound care center for continued wound healing. He denies N/V/F/chills. He has no further complaints. Subjective Subjective Patient is a 73-year-old male who follows up to the wound care center today for a left lower extremity ulceration x 2. His states she has left graft in place and is only changing outer dressings as needed. She does state that he does not keep feet elevated as much as he should. He did see PCP for check up last week. He denies constitutional symptoms today. Denies further complaints today. Objective Data Objective Data Vital Signs: Vital Signs Temp Pulse Resp BP 97.5 F L 81 18 133/63 H 05/09/23 08:09 05/09/23 08:09 05/09/23 08:09 05/09/23 08:09 Weight: 114.015 kg Body Mass Index (BMI) 31.4 Physical Exam Const alert, oriented x3 and no apparent distress General Appearance: cooperative HEENT normocephalic Eyes General Eye: normal appearance of both eyes Neck General: normal visual inspection Lymph Lymphatic: no lymphadenopathy noted and no lymphedema noted Resp normal respiratory effort Cardio regular rate and regular rhythm Extremity normal capillary refill, no joint enlargement, no calf tenderness and no pedal edema Extremity Narrative: DP pulses palpable and PT pulses weakly palpable bilateral. CFT less than 3 seconds to the digits bilateral. Hair growth absent to digits of foot bilateral. Dermatological: Skin is thin and demonstrating trophic changes bilateral lower extremity. Skin is excessively dry with peeling/flaking consistent with diabetic autonomic neuropathy and microvascular disease. There is an ulceration noted to the anterior aspect overlying the tibial crest which has healed, no signs of infection. Ulceration noted to the lateral ankle with mixed fibrogranular layer. No signs of infection. Musculoskeletal: Muscle strength 5 of 5 age-appropriate. Decreased ankle range of motion in dorsiflexion with the knee extended without pain or crepitus bilateral. Decreased range of motion of the first metatarsophalangeal joint without pain or crepitus bilateral. There is hammertoe deformity of lesser digits bilateral without pain to palpation. Skin no rashes or lesions noted, skin turgor normal and no jaundice Neuro moves all extremities Debridement Note Debridement Note Wound debrided: Left lateral ankle Laterality: Left Wound Grade/Stage: Miguel stage I Type of Debridement: Excisional debridement Anesthesia Used: 5% Lidocaine Gel Depth: Down to and including healthy tissue and in the subcutaneous layer Percentage of wound debrided: 100 Instrument Used: 3mm curette and #15 blade Tissue Removed: Fibrous, devitalized subcutaneous, biofilm, slough Severity: Fat Layer Exposed Amount of bleeding with debridement: Mild Bleeding Controlled with: Compression and gauze Patient tolerated procedure: Patient tolerated procedure well Post-Debridement Measurements and Additional Note: Post-Debridement Measurements/Treatment - Nurse 1 - General Ulcer Assessment Start: 05/09/23 08:09 Freq: Status: Active Protocol: [email or web address].[email or web address] Activity Type Activity Date Activity User E-sign Co-sign Detail Recorded Client Recorded Date Recorded By Document 05/09/23 08:09 Desktop 05/09/23 08:19 05/09/23 08:09 - Today's Visit Information Type of service Follow-up Visit (Physician/CUSTOMER STRATEGY MANAGER ) Arrival Mode Ambulatory,Cane Transfer Assistance None Patient Identification Verified (Name & Yes ) Patient Requires Transmission-Based No Precautions Height and Weight Body Mass Index (BMI) 31.4 BMI Classification Obese Vital Signs Temperature (97.8 F-99.1 F) 97.5 F L Temperature Source Temporal Pulse Rate (60-100) 81 Pulse Location Monitor Respiratory Rate (12-18) 18 Respiratory rate source Observation Blood Pressure (90/60-120/80) 133/63 H Blood Pressure Mean (mm Hg) 86 Source Monitor History Since Last Visit- (Skip if this is Patient's initial visit) Any new allergies or adverse reactions No Had a fall/change in ADL's that may No increase risk of falls Signs or symptoms of abuse and/or No neglect since last visit Have you been in the hospital since your No last visit? Has dressing in place as prescribed Yes Has compression in place as prescribed Yes Has offloadiing in place as prescribed N/A Experienced any changes in pain level or No management Left Footwear Slipper Right Footwear Regular Shoe Pain Scale: 0-10 Numeric Is Patient Pain Free? Yes WC - Nurse 1 - General Ulcer Measurement Start: 05/09/23 08:09 Freq: Status: Active Protocol: Activity Type Activity Date Activity User E-sign Co-sign Detail Recorded Client Recorded Date Recorded By Document 05/09/23 08:09 DL Desktop 05/09/23 08:19 DL 05/09/23 08:09 Wound Center Nurse 1 #9 LT ANKLE -Current Size (cm) - Length 1 -Current Size (cm) - Width 0.7 -Current Size (cm) - Depth 0.3 -Total Square Cm 0.7 -Exudate Amt Small -Exudate Type Serosanguineous -Wound Margin Distinct, Outline Attached -Granulation Amt Large (67-100%) -Granulation Quality Red -Necrosis Amt Small (1-33%) -Necrotic Tissue Type Adherent Slough -Structure Exposed N/A -Texture (Jada-wound Skin Appearance) Scarring -Moisture (Jada-wound Skin Appearance) Dry/Scaly -Color (Jada-wound Skin Appearance) Hemosiderin Staining -Temperature (Jada-wound Skin No Abnormality Appearance) (Pt Warm) -Tenderness on Palpation (Jada-wound No Skin Appearance) -Ulcer Cleansing Soap and Water -Foul Odor after Cleansing No -Anesthetic Used 5% Lidocaine Gel Left Calf (cm) 38.7 Left Ankle (cm) 22.5 WC - Nurse 2 - General Ulcer CM Notes Start: 05/09/23 08:09 Freq: Status: Active Protocol: Activity Type Activity Date Activity User E-sign Co-sign Detail Recorded Client Recorded Date Recorded By Document 05/09/23 10:19 PL [id number] 05/09/23 10:21 PL 05/09/23 10:19 Wound Center Nurse 2 #9 LT ANKLE -Time 08:40 -Correct Patient Yes -Correct Side, Site, Position Yes -Correct Procedure Yes -Procedure Performed Yes -Type of Procedure Debridement -Clinical Debridement Subcutaneous -Tissue Removed Subcutaneous -Post Debridement (cm) - Length 1.3 -Post Debridement (cm) - Width 1.0 -Post Debridement (cm) - Depth 0.4 -Total Square (Post) (cm) 1.30 -Area of Debridement (cm) - Length 1.3 -Area of Debridement (cm) - Width 1.0 -Total Square (Area) (cm) 1.30 -Tunneling No -Undermining/Tunneling No -Circular Undermining No -Wound/Ulcer Outcome Not Healed -Ulcer Cleansing Rinsed/ Irrigated with Saline -Foul Odor after Cleansing No -Bioengineered Tissue Yes -Type of Bioengineered Tissue Epifix 18mm Disc -Expiration Date 01/02/28 -Product Lot Number [id number] -Percent Used 100 -Bleeding Controlled with Pressure -Treatment Response Procedure Tolerated Well -Debridement - Subq, 1st 20sq cm No -Apply Skin Sub - 1st 25 sq cm - Legs 1 -Epifix 18mm Disc 3 Pain Scale: 0-10 Numeric Is Patient Pain Free? Yes - Nurse 3 - General Ulcer D/C NN Start: 05/09/23 08:09 Freq: Status: Active Protocol: Activity Type Activity Date Activity User E-sign Co-sign Detail Recorded Client Recorded Date Recorded By Document 05/09/23 08:54 GM Desktop 05/09/23 08:55 GM 05/09/23 08:54 Wound Care Center Nurse 3 #9 LT ANKLE -Ulcer Cleansing Not Cleansed -Foul Odor after Cleansing No -Primary Dressing Covered/Secured with Dry Gauze & Roll Gauze, Secured with Tape Left -Lotion applied to leg before Yes compression wrap -Tubular Bandage Single Layer -Size of Tubigrip Used Size D -Size D ($) 1 Pain Scale: 0-10 Numeric Is Patient Pain Free? Yes Teaching: Wound Center Compression Wraps & Stockings -Person Taught Patient,Family -Teaching Method Discussion, Demonstration -Response to teaching Verbalize understanding Dressing Your Wound -Person Taught Patient,Family -Teaching Method Discussion, Demonstration -Response to teaching Verbalize understanding WC - Visit Discharge Discharge Condition Stable Ambulatory Status Ambulatory,Cane Transportation Private Auto Assessment/Plan Assessment/Plan (1) Non-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: CODE(S): L97.322 - Non-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 (2) 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 layer exposed: CODE(S): L97.222 - 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 layer exposed (3) Delayed wound healing: CODE(S): T14.8XXD - Other injury of unspecified body region, subsequent encounter (4) Venous insufficiency of both lower extremities: CODE(S): I87.2 - Venous insufficiency (chronic) (peripheral) (5) Longstanding persistent atrial fibrillation: CODE(S): I48.11 - Longstanding persistent atrial fibrillation (6) Chronic diastolic (congestive) heart failure: CODE(S): I50.32 - Chronic diastolic (congestive) heart failure (7) DM type 2 (diabetes mellitus, type 2): CODE(S): E11.9 - Type 2 diabetes mellitus without complications QUALIFIERS: Diabetes mellitus complication status: with other specified complication Diabetes mellitus computer terminal operator insulin use: with fdc use Qualified Code(s): E11.69 - Type 2 diabetes mellitus with other specified complication; Z79.4 - terminal computer operator (current) use of insulin (8) Hyperlipidemia: CODE(S): E78.5 - Hyperlipidemia, unspecified QUALIFIERS: Hyperlipidemia type: unspecified Qualified Code(s): E78.5 - Hyperlipidemia, unspecified (9) COPD (chronic obstructive pulmonary disease): CODE(S): J44.9 - Chronic obstructive pulmonary disease, unspecified PLAN: Plan Patient seen and evaluated I reviewed his previous treatment history by PCP. Patient had followed Dr. Anderson. Ulceration to the left anterior lower extremity has healed. No signs of infection. Left lateral ankle measures 1.2 cm x 0.9 cm x 0.4 cm. Wound underwent debridement as noted in clinical panel above. EpiFix graft #1 applied to wound bed. Site dressed with Adaptic touch and anchored with Steri-Strips then dressed with dry sterile dressing. He was instructed to not get the dressing wet. They are to change outer layer as needed. Lateral ankle wound has slight reduction in size vs previous visit. Discussed continued diabetic diet to ensure proper glucose control. Recent A1c 6.4%. Discussed that this is a good standing for control of his diabetes and will aid in wound healing. Discussed with to aid in daily foot checks as her is blind. Discussed wearing shoe gear at all times and to never go barefoot. Socks include barefoot. They voiced understanding of this today. Recommend continued follow-up with PCP for continued diabetic management. Discussed adequate protein intake to continue to aid in wound healing. Also discussed Negrito supplementation to aid in wound healing. Discussed signs and symptoms with the pertaining to infection. Discussed if she notices increasing redness about the wound margin spreading up the leg, any purulent drainage from the wound site, increasing foul odor from the wound, or if he experiences fever greater than 101 degree, nausea, vomiting, chills that these are signs of progressing infection and he needs to report to the ED. They voiced understanding of this today. The following work up and care recommendations were made: Dressing: EpiFix, Adaptic touch, Steri-Strips, dry sterile dressing. Change outer dressing as needed Wash: Do not get wet Tissue growth optimization: EpiFix Offload: Ensure anterior leg is not bumped and discussed no picking at skin sites. Vascular: DP and PT pulses palpable with adequate capillary fill time. However skin demonstrates trophic changes consistent with microvascular disease. Edema: No edema currently, has history of chronic venous stasis. Recommend continued compression stocking. Infection: No signs of infection. Pain: May take [id number] Tylenol extra strength for discomfort. Host factors: DM type II, chronic venous stasis, CHF, COPD, blindness I answered all the patient's questions. To return to the wound healing center in 2 weeks or call sooner if the patient has any questions or concerns.
[2023-05-30 08:04] VITALS: BP 139/78; PULSE 95; RESP 18; TEMP 36.4; BMI 31.4
--- NOTE | 2023-05-30 08:23 | PCM.WC.PN ---
History of Present Illness Date of Service: 05/30/23 Chief Complaint: Left Leg Ulcer History of Wound: Mr. Turcios is a 72-year-old with PMHx of of diabetes mellitus type 2, venous insufficiency bilateral lower extremity, history of multiple ulcerations, HTN, HLD, COPD, A-fib, CHF. He presents back to the wound care center today accompanied by his for nonhealing left lower extremity ulceration. states he has either bumped his leg on something or picked at some skin on the front of his leg creating a new wound. They state they have been following with Dr. Anderson in [place] as well as PCP Dr. Olguin. They state occasional use of mupirocin topical ointment but otherwise have not been applying dressings to the site. They state the wound has been present for a few weeks and has not made much progress and thus they were referred to the wound care center for continued wound healing. He denies N/V/F/chills. He has no further complaints. Subjective Subjective Patient is a 73-year-old male who follows up to the wound care center today for a left lower extremity ulceration. His states she has left graft in place and is only changing outer dressings as needed. She does state that he does not keep feet elevated as much as he should. He denies constitutional symptoms today. Denies further complaints today. Objective Data Objective Data Vital Signs: Vital Signs Temp Pulse Resp BP O2 Del Method 97.5 F L 95 18 139/78 H Room Air 05/30/23 08:04 05/30/23 08:04 05/30/23 08:04 05/30/23 08:04 05/30/23 08:04 Oxygen Delivery Method Room Air Weight: 114.015 kg Body Mass Index (BMI) 31.4 Physical Exam Const alert, oriented x3 and no apparent distress General Appearance: cooperative HEENT normocephalic Eyes General Eye: normal appearance of both eyes Neck General: normal visual inspection Lymph Lymphatic: no lymphadenopathy noted and no lymphedema noted Resp normal respiratory effort Cardio regular rate and regular rhythm Extremity normal capillary refill, no joint enlargement, no calf tenderness and no pedal edema Extremity Narrative: DP pulses palpable and PT pulses weakly palpable bilateral. CFT less than 3 seconds to the digits bilateral. Hair growth absent to digits of foot bilateral. Dermatological: Skin is thin and demonstrating trophic changes bilateral lower extremity. Skin is excessively dry with peeling/flaking consistent with diabetic autonomic neuropathy and microvascular disease. There is an ulceration noted to the anterior aspect overlying the tibial crest which has healed, no signs of infection. Ulceration noted to the lateral ankle with mixed fibrogranular layer. No signs of infection. Musculoskeletal: Muscle strength 5 of 5 age-appropriate. Decreased ankle range of motion in dorsiflexion with the knee extended without pain or crepitus bilateral. Decreased range of motion of the first metatarsophalangeal joint without pain or crepitus bilateral. There is hammertoe deformity of lesser digits bilateral without pain to palpation. Skin no rashes or lesions noted, skin turgor normal and no jaundice Neuro moves all extremities Debridement Note Debridement Note Wound debrided: Left lateral ankle Laterality: Left Wound Grade/Stage: Miguel stage I Type of Debridement: Excisional debridement Anesthesia Used: 5% Lidocaine Gel Depth: Down to and including healthy tissue and in the subcutaneous layer Percentage of wound debrided: 100 Instrument Used: 3mm curette Tissue Removed: Fibrous, devitalized subcutaneous, biofilm, slough Severity: Fat Layer Exposed Amount of bleeding with debridement: Mild Bleeding Controlled with: Compression and gauze Patient tolerated procedure: Patient tolerated procedure well Post-Debridement Measurements and Additional Note: Post-Debridement Measurements/Treatment - Nurse 1 - General Ulcer Assessment Start: 05/09/23 08:09 Freq: Status: Active Protocol: [email or web address].[email or web address] Activity Type Activity Date Activity User E-sign Co-sign Detail Recorded Client Recorded Date Recorded By Document 05/09/23 08:09 DL Desktop 05/09/23 08:19 DL Document 05/16/23 08:10 KW Desktop 05/16/23 08:29 KW Document 05/30/23 08:04 JF Desktop 05/30/23 08:06 JF 05/09/23 05/16/23 05/30/23 08:09 08:10 08:04 - Today's Visit Information Type of service Follow-up Visit Follow-up Visit Follow-up Visit (Physician/BALANCE WEIGHER (Physician/BALANCE WEIGHER (Physician/BALANCE WEIGHER ) ) ) Arrival Mode Ambulatory,Cane Ambulatory,Cane Ambulatory,Cane Transfer Assistance None Accompanied by Patient Identification Verified (Name & Yes Yes Yes ) Patient Requires Transmission-Based No Precautions Height and Weight Body Mass Index (BMI) 31.4 31.4 31.4 BMI Classification Obese Obese Obese Vital Signs Temperature (97.8 F-99.1 F) 97.5 F L 96.7 F L 97.5 F L Temperature Source Temporal Temporal Temporal Pulse Rate (60-100) 81 107 H 95 Pulse Location Monitor Apical Monitor Respiratory Rate (12-18) 18 18 18 Respiratory rate source Observation Observation Observation Oxygen Delivery Method Room Air Room Air Blood Pressure (90/60-120/80) 133/63 H 119/77 139/78 H Blood Pressure Mean (mm Hg) 86 91 98 Source Monitor Monitor Position Sitting Blood Pressure Location Left Forearm History Since Last Visit- (Skip if this is Patient's initial visit) Have you changed medications since your Yes No last visit? Any new allergies or adverse reactions No No No Had a fall/change in ADL's that may No No No increase risk of falls Signs or symptoms of abuse and/or No No No neglect since last visit Have you been in the hospital since your No No No last visit? Has dressing in place as prescribed Yes Yes Yes Has compression in place as prescribed Yes Yes Yes Has offloadiing in place as prescribed N/A No No Experienced any changes in pain level or No No No management Left Footwear Slipper Regular Shoe Regular Shoe Right Footwear Regular Shoe Regular Shoe Regular Shoe Pain Scale: 0-10 Numeric Is Patient Pain Free? Yes Yes Yes WC - Nurse 1 - General Ulcer Measurement Start: 05/09/23 08:09 Freq: Status: Active Protocol: Activity Type Activity Date Activity User E-sign Co-sign Detail Recorded Client Recorded Date Recorded By Document 05/09/23 08:09 DL Desktop 05/09/23 08:19 DL Document 05/16/23 08:10 KW Desktop 05/16/23 08:29 KW Document 05/30/23 08:04 JF Desktop 05/30/23 08:06 JF 05/09/23 05/16/23 05/30/23 08:09 08:10 08:04 Wound Center Nurse 1 #9 LT ANKLE -Current Size (cm) - Length 1 1.9 1 -Current Size (cm) - Width 0.7 0.7 0.5 -Current Size (cm) - Depth 0.3 0.4 0.2 -Total Square Cm 0.7 1.33 0.5 -Exudate Amt Small Medium Medium -Exudate Type Serosanguineous Serosanguineous Serosanguineous -Wound Margin Distinct, Distinct, Distinct, Outline Outline Outline Attached Attached Attached -Granulation Amt Large (67-100%) Small (1-33%) Medium (34-66%) -Granulation Quality Red Red [place] -Necrosis Amt Small (1-33%) Large (67-100%) Small (1-33%) -Necrotic Tissue Type Adherent Slough Adherent Slough Adherent Slough -Structure Exposed N/A -Texture (Jada-wound Skin Appearance) Scarring Assessed Assessed -Moisture (Jada-wound Skin Appearance) Dry/Scaly Assessed,Dry/ Dry/Scaly Scaly -Color (Jada-wound Skin Appearance) Hemosiderin Assessed Assessed Staining -Temperature (Jada-wound Skin No Abnormality No Abnormality No Abnormality Appearance) (Pt Warm) (Pt Warm) (Pt Warm) -Tenderness on Palpation (Jada-wound No Skin Appearance) -Ulcer Cleansing Soap and Water Soap and Water Soap and Water -Foul Odor after Cleansing No No -Anesthetic Used 5% Lidocaine 5% Lidocaine 5% Lidocaine Gel Gel Gel Right Calf (cm) 43.1 Right Ankle (cm) 23.0 Left Calf (cm) 38.7 39.5 38.6 Left Ankle (cm) 22.5 22.0 22.3 WC - Nurse 2 - General Ulcer CM Notes Start: 05/09/23 08:09 Freq: Status: Active Protocol: Activity Type Activity Date Activity User E-sign Co-sign Detail Recorded Client Recorded Date Recorded By Document 05/09/23 10:19 [id number] 05/09/23 10:21 PL Document 05/16/23 16:29 [id number] 05/16/23 16:31 PL 05/09/23 05/16/23 10:19 16:29 Wound Center Nurse 2 #9 LT ANKLE -Time 08:40 08:36 -Correct Patient Yes Yes -Correct Side, Site, Position Yes Yes -Correct Procedure Yes Yes -Procedure Performed Yes Yes -Type of Procedure Debridement Debridement -Clinical Debridement Subcutaneous Subcutaneous -Tissue Removed Subcutaneous Subcutaneous -Post Debridement (cm) - Length 1.3 1.4 -Post Debridement (cm) - Width 1.0 0.9 -Post Debridement (cm) - Depth 0.4 0.2 -Total Square (Post) (cm) 1.30 1.26 -Area of Debridement (cm) - Length 1.3 1.4 -Area of Debridement (cm) - Width 1.0 0.9 -Total Square (Area) (cm) 1.30 1.26 -Tunneling No No -Undermining/Tunneling No No -Circular Undermining No No -Wound/Ulcer Outcome Not Healed Not Healed -Ulcer Cleansing Rinsed/ Rinsed/ Irrigated with Irrigated with Saline Saline -Foul Odor after Cleansing No No -Bioengineered Tissue Yes Yes -Type of Bioengineered Tissue Epifix 18mm Epifix 18mm Disc Disc -Expiration Date 01/02/28 01/02/28 -Product Lot Number [id number] -Percent Used 100 100 -Bleeding Controlled with Pressure Pressure -Treatment Response Procedure Procedure Tolerated Well Tolerated Well -Debridement - Subq, 1st 20sq cm No No -Apply Skin Sub - 1st 25 sq cm - Legs 1 1 -Epifix 18mm Disc 3 3 Pain Scale: 0-10 Numeric Is Patient Pain Free? Yes Yes - Nurse 3 - General Ulcer D/C NN Start: 05/09/23 08:09 Freq: Status: Active Protocol: Activity Type Activity Date Activity User E-sign Co-sign Detail Recorded Client Recorded Date Recorded By Document 05/09/23 08:54 GM Desktop 05/09/23 08:55 GM Document 05/16/23 08:51 KW Desktop 05/16/23 08:51 KW 05/09/23 05/16/23 08:54 08:51 Wound Care Center Nurse 3 #9 LT ANKLE -Ulcer Cleansing Not Cleansed -Foul Odor after Cleansing No -Primary Dressing Covered/Secured with Dry Gauze & Dry Gauze & Roll Gauze, Roll Gauze, Secured with Secured with Tape Tape Left -Lotion applied to leg before Yes compression wrap -Tubular Bandage Single Layer Single Layer -Size of Tubigrip Used Size D Size D -Size D ($) 1 1 Pain Scale: 0-10 Numeric Is Patient Pain Free? Yes Yes Teaching: Wound Center Compression Wraps & Stockings -Person Taught Patient,Family -Teaching Method Discussion, Demonstration -Response to teaching Verbalize understanding Dressing Your Wound -Person Taught Patient,Family -Teaching Method Discussion, Demonstration -Response to teaching Verbalize understanding WC - Visit Discharge Discharge Condition Stable Ambulatory Status Ambulatory,Cane Transportation Private Auto Assessment/Plan Assessment/Plan (1) Non-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: CODE(S): L97.322 - Non-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 (2) 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 layer exposed: CODE(S): L97.222 - 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 layer exposed (3) Delayed wound healing: CODE(S): T14.8XXD - Other injury of unspecified body region, subsequent encounter (4) Venous insufficiency of both lower extremities: CODE(S): I87.2 - Venous insufficiency (chronic) (peripheral) (5) Longstanding persistent atrial fibrillation: CODE(S): I48.11 - Longstanding persistent atrial fibrillation (6) Chronic diastolic (congestive) heart failure: CODE(S): I50.32 - Chronic diastolic (congestive) heart failure (7) DM type 2 (diabetes mellitus, type 2): CODE(S): E11.9 - Type 2 diabetes mellitus without complications QUALIFIERS: Diabetes mellitus complication status: with other specified complication Diabetes mellitus long term care pharmacist insulin use: with retirement use Qualified Code(s): E11.69 - Type 2 diabetes mellitus with other specified complication; Z79.4 - USP (current) use of insulin (8) Hyperlipidemia: CODE(S): E78.5 - Hyperlipidemia, unspecified QUALIFIERS: Hyperlipidemia type: unspecified Qualified Code(s): E78.5 - Hyperlipidemia, unspecified (9) COPD (chronic obstructive pulmonary disease): CODE(S): J44.9 - Chronic obstructive pulmonary disease, unspecified PLAN: Plan Patient seen and evaluated I reviewed his previous treatment history by PCP. Patient had followed Dr. Anderson. Ulceration to the left anterior lower extremity has healed. No signs of infection. Left lateral ankle measures 1.2 cm x 0.9 cm x 0.2 cm. Wound underwent debridement as noted in clinical panel above. EpiFix graft #2 applied to wound bed. Site dressed with Adaptic touch and anchored with Steri-Strips then dressed with dry sterile dressing. He was instructed to not get the dressing wet. They are to change outer layer as needed. Lateral ankle wound has slight reduction in size vs previous visit. Discussed continued diabetic diet to ensure proper glucose control. Recent A1c 6.4%. Discussed that this is a good standing for control of his diabetes and will aid in wound healing. Discussed with to aid in daily foot checks as her is blind. Discussed wearing shoe gear at all times and to never go barefoot. Socks include barefoot. They voiced understanding of this today. Recommend continued follow-up with PCP for continued diabetic management. Discussed adequate protein intake to continue to aid in wound healing. Also discussed Negrito supplementation to aid in wound healing. Discussed signs and symptoms with the pertaining to infection. Discussed if she notices increasing redness about the wound margin spreading up the leg, any purulent drainage from the wound site, increasing foul odor from the wound, or if he experiences fever greater than 101 degree, nausea, vomiting, chills that these are signs of progressing infection and he needs to report to the ED. They voiced understanding of this today. The following work up and care recommendations were made: Dressing: EpiFix, Adaptic touch, Steri-Strips, dry sterile dressing. Change outer dressing as needed Wash: Do not get wet Tissue growth optimization: EpiFix Offload: Ensure anterior leg is not bumped and discussed no picking at skin sites. Vascular: DP and PT pulses palpable with adequate capillary fill time. However skin demonstrates trophic changes consistent with microvascular disease. Edema: No edema currently, has history of chronic venous stasis. Recommend continued compression stocking. Infection: No signs of infection. Pain: May take [id number] Tylenol extra strength for discomfort. Host factors: DM type II, chronic venous stasis, CHF, COPD, blindness I answered all the patient's questions. To return to the wound healing center in 1 week or call sooner if the patient has any questions or concerns.
== END 2023-06-02 23:59 | disposition home or self-care (01) ==
LOC: WC 08:00
PROVIDERS: PCP Family Medicine; Referring Provider Family Medicine; Visit Provider Student in an Organized Health Care Education/Training Program
DX: E11.622 Type 2 diabetes mellitus with other skin ulcer (principal); L97.222 Non-pressure chronic ulcer of left calf with fat layer exposed; L97.322 Non-pressure 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 layer exposed; J44.9 Chronic obstructive pulmonary disease, unspecified; I11.0 Hypertensive heart disease with heart failure; I50.32 Chronic diastolic (congestive) heart failure; E11.59 Type 2 diabetes mellitus with other circulatory complications; I48.11 Longstanding persistent atrial fibrillation; Z79.4 Long term (current) use of insulin; I87.2 Venous insufficiency (chronic) (peripheral)
CPT/HCPCS: 15271; Q4186

== ENCOUNTER 2023-06-27 08:00 | Outpatient (RCR) | payer MEDICARE, OTHER, SELFPAY ==
[2023-06-03 00:41] VITALS: BP 139/78; PULSE 95; RESP 18; TEMP 36.4; BMI 31.4
[2023-06-06 08:05] VITALS: BP 100/65; RESP 18; TEMP 35.8; BMI 31.4
--- NOTE | 2023-06-06 08:21 | PCM.WC.PN ---
History of Present Illness Date of Service: 06/06/23 Chief Complaint: Left Leg Ulcer History of Wound: Mr. Turcios is a 72-year-old with PMHx of of diabetes mellitus type 2, venous insufficiency bilateral lower extremity, history of multiple ulcerations, HTN, HLD, COPD, A-fib, CHF. He presents back to the wound care center today accompanied by his for nonhealing left lower extremity ulceration. states he has either bumped his leg on something or picked at some skin on the front of his leg creating a new wound. They state they have been following with Dr. Anderson in [place] as well as PCP Dr. Olguin. They state occasional use of mupirocin topical ointment but otherwise have not been applying dressings to the site. They state the wound has been present for a few weeks and has not made much progress and thus they were referred to the wound care center for continued wound healing. He denies N/V/F/chills. He has no further complaints. Subjective Subjective Patient is a 73-year-old male who follows up to the wound care center today for a left lower extremity ulceration. His states she has left graft in place and is only changing outer dressings as needed. She does state that he does not keep feet elevated as much as he should. He denies constitutional symptoms today. Denies further complaints today. Objective Data Objective Data Vital Signs: Vital Signs Temp Pulse Resp BP O2 Del Method 96.5 F L 95 18 100/65 Room Air 06/06/23 08:05 06/03/23 00:41 06/06/23 08:05 06/06/23 08:05 06/06/23 08:05 Oxygen Delivery Method Room Air Weight: 114.015 kg Body Mass Index (BMI) 31.4 Physical Exam Const alert, oriented x3 and no apparent distress General Appearance: cooperative HEENT normocephalic Eyes General Eye: normal appearance of both eyes Neck General: normal visual inspection Lymph Lymphatic: no lymphadenopathy noted and no lymphedema noted Resp normal respiratory effort Cardio regular rate and regular rhythm Extremity normal capillary refill, no joint enlargement, no calf tenderness and no pedal edema Extremity Narrative: DP pulses palpable and PT pulses weakly palpable bilateral. CFT less than 3 seconds to the digits bilateral. Hair growth absent to digits of foot bilateral. Dermatological: Skin is thin and demonstrating trophic changes bilateral lower extremity. Skin is excessively dry with peeling/flaking consistent with diabetic autonomic neuropathy and microvascular disease. Ulceration to the anterior aspect overlying the tibial crest has healed, no signs of infection. Ulceration noted to the lateral ankle with mixed fibrogranular layer. No signs of infection. Musculoskeletal: Muscle strength 5 of 5 age-appropriate. Decreased ankle range of motion in dorsiflexion with the knee extended without pain or crepitus bilateral. Decreased range of motion of the first metatarsophalangeal joint without pain or crepitus bilateral. There is hammertoe deformity of lesser digits bilateral without pain to palpation. Skin no rashes or lesions noted, skin turgor normal and no jaundice Neuro moves all extremities Debridement Note Debridement Note Wound debrided: Left lateral ankle Laterality: Left Wound Grade/Stage: Miguel stage I Type of Debridement: Excisional debridement Anesthesia Used: 5% Lidocaine Gel Depth: Down to and including healthy tissue and in the subcutaneous layer Percentage of wound debrided: 100 Instrument Used: 5mm curette Tissue Removed: Fibrous, devitalized subcutaneous, biofilm, slough Severity: Fat Layer Exposed Amount of bleeding with debridement: Mild Bleeding Controlled with: Compression and gauze Patient tolerated procedure: Patient tolerated procedure well Post-Debridement Measurements and Additional Note: Post-Debridement Measurements/Treatment - Nurse 1 - General Ulcer Assessment Start: 06/06/23 08:05 Freq: Status: Active Protocol: OLIVIA Activity Type Activity Date Activity User E-sign Co-sign Detail Recorded Client Recorded Date Recorded By Document 06/06/23 08:05 KW Desktop 06/06/23 08:08 KW 06/06/23 08:05 - Today's Visit Information Type of service Follow-up Visit (Physician/CONSTRUCTION HELPER ) Arrival Mode Ambulatory,Cane Accompanied by Patient Identification Verified (Name & Yes ) Height and Weight Body Mass Index (BMI) 31.4 BMI Classification Obese Vital Signs Temperature (97.8 F-99.1 F) 96.5 F L Temperature Source Temporal Respiratory Rate (12-18) 18 Respiratory rate source Observation Oxygen Delivery Method Room Air Blood Pressure (90/60-120/80) 100/65 Blood Pressure Mean (mm Hg) 76 Source Monitor Position Sitting Blood Pressure Location Left Arm History Since Last Visit- (Skip if this is Patient's initial visit) Have you changed medications since your No last visit? Any new allergies or adverse reactions No Had a fall/change in ADL's that may No increase risk of falls Signs or symptoms of abuse and/or No neglect since last visit Have you been in the hospital since your No last visit? Has dressing in place as prescribed Yes Has compression in place as prescribed Yes Has offloadiing in place as prescribed No Experienced any changes in pain level or No management Left Footwear Regular Shoe Right Footwear Regular Shoe Pain Scale: 0-10 Numeric Is Patient Pain Free? Yes WC - Nurse 1 - General Ulcer Measurement Start: 06/06/23 08:05 Freq: Status: Active Protocol: Activity Type Activity Date Activity User E-sign Co-sign Detail Recorded Client Recorded Date Recorded By Document 06/06/23 08:05 KW Desktop 06/06/23 08:08 KW 06/06/23 08:05 Wound Center Nurse 1 #9 LT ANKLE -Current Size (cm) - Length 1.4 -Current Size (cm) - Width 0.9 -Current Size (cm) - Depth 0.2 -Total Square Cm 1.26 -Exudate Amt Medium -Exudate Type Serosanguineous -Wound Margin Distinct, Outline Attached -Granulation Amt Small (1-33%) -Granulation Quality Red -Necrosis Amt Medium (34-66%) -Necrotic Tissue Type Adherent Slough -Texture (Jada-wound Skin Appearance) Assessed -Moisture (Jada-wound Skin Appearance) Assessed,Dry/ Scaly -Color (Jada-wound Skin Appearance) Assessed -Ulcer Cleansing Soap and Water -Anesthetic Used 5% Lidocaine Gel Left Calf (cm) 38.2 Left Ankle (cm) 22.1 Assessment/Plan Assessment/Plan (1) Non-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: CODE(S): L97.322 - Non-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 (2) Delayed wound healing: CODE(S): T14.8XXD - Other injury of unspecified body region, subsequent encounter (3) 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 layer exposed: CODE(S): L97.222 - 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 layer exposed (4) Venous insufficiency of both lower extremities: CODE(S): I87.2 - Venous insufficiency (chronic) (peripheral) (5) Chronic diastolic (congestive) heart failure: CODE(S): I50.32 - Chronic diastolic (congestive) heart failure (6) COPD (chronic obstructive pulmonary disease): CODE(S): J44.9 - Chronic obstructive pulmonary disease, unspecified (7) DM type 2 (diabetes mellitus, type 2): CODE(S): E11.9 - Type 2 diabetes mellitus without complications QUALIFIERS: Diabetes mellitus complication status: with other specified complication Diabetes mellitus long term care administrator insulin use: with long term care administrator use Qualified Code(s): E11.69 - Type 2 diabetes mellitus with other specified complication; Z79.4 - exterminator helper (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 Patient had followed Dr. Anderson. Ulceration to the left anterior lower extremity remains healed. No signs of infection. Left lateral ankle measures 1.5 cm x 0.9 cm x 0.2 cm. Wound underwent debridement as noted in clinical panel above. EpiFix graft #3 applied to wound bed. Site dressed with Adaptic touch and anchored with Steri-Strips then dressed with dry sterile dressing. He was instructed to not get the dressing wet. They are to change outer layer as needed. Lateral ankle wound has slight increase in size vs previous visit. Will look to apply 3M compression wrap at next visit. Discussed continued diabetic diet to ensure proper glucose control. Recent A1c 6.4%. Discussed that this is a good standing for control of his diabetes and will aid in wound healing. Discussed with to aid in daily foot checks as her is blind. Discussed wearing shoe gear at all times and to never go barefoot. Socks include barefoot. They voiced understanding of this today. Recommend continued follow-up with PCP for continued diabetic management. Discussed adequate protein intake to continue to aid in wound healing. Also discussed Negrito supplementation to aid in wound healing. Discussed signs and symptoms with the pertaining to infection. Discussed if she notices increasing redness about the wound margin spreading up the leg, any purulent drainage from the wound site, increasing foul odor from the wound, or if he experiences fever greater than 101 degree, nausea, vomiting, chills that these are signs of progressing infection and he needs to report to the ED. They voiced understanding of this today. The following work up and care recommendations were made: Dressing: EpiFix, Adaptic touch, Steri-Strips, dry sterile dressing. Change outer dressing as needed Wash: Do not get wet Tissue growth optimization: EpiFix Offload: Ensure anterior leg is not bumped and discussed no picking at skin sites. Vascular: DP and PT pulses palpable with adequate capillary fill time. However skin demonstrates trophic changes consistent with microvascular disease. Edema: No edema currently, has history of chronic venous stasis. Recommend continued compression stocking. Infection: No signs of infection. Pain: May take [id number] Tylenol extra strength for discomfort. Host factors: DM type II, chronic venous stasis, CHF, COPD, blindness I answered all the patient's questions. To return to the wound healing center in 1 week or call sooner if the patient has any questions or concerns.
[2023-06-13 08:05] VITALS: BP 154/77; PULSE 83; RESP 18; TEMP 36.1; BMI 31.4
--- NOTE | 2023-06-13 08:23 | PN.PCM_ITS ---
History of Present Illness Date of Service: 06/13/23 Chief Complaint: Left Leg Ulcer History of Wound: Mr. Turcios is a 72-year-old with PMHx of of diabetes mellitus type 2, venous insufficiency bilateral lower extremity, history of multiple ulcerations, HTN, HLD, COPD, A-fib, CHF. He presents back to the wound care center today accompanied by his for nonhealing left lower extremity ulceration. states he has either bumped his leg on something or picked at some skin on the front of his leg creating a new wound. They state they have been following with Dr. Anderson in [place] as well as PCP Dr. Olguin. They state occasional use of mupirocin topical ointment but otherwise have not been applying dressings to the site. They state the wound has been present for a few weeks and has not made much progress and thus they were referred to the wound care center for continued wound healing. He denies N/V/F/chills. He has no further complaints. Subjective Subjective Patient is a 73-year-old male who follows up to the wound care center today for a left lower extremity ulceration. His states she has left graft in place and is only changing outer dressings as needed. She does state that he does not keep feet elevated as much as he should. He denies constitutional symptoms today. Denies further complaints today. Objective Data Objective Data Vital Signs: Vital Signs Temp Pulse Resp BP O2 Del Method 96.9 F L 83 18 154/77 H Room Air 06/13/23 08:05 06/13/23 08:05 06/13/23 08:05 06/13/23 08:05 06/13/23 08:05 Oxygen Delivery Method Room Air Weight: 114.015 kg Body Mass Index (BMI) 31.4 Physical Exam Const alert, oriented x3 and no apparent distress General Appearance: cooperative HEENT normocephalic Eyes General Eye: normal appearance of both eyes Neck General: normal visual inspection Lymph Lymphatic: no lymphadenopathy noted and no lymphedema noted Resp normal respiratory effort Cardio regular rate and regular rhythm Extremity normal capillary refill, no joint enlargement, no calf tenderness and no pedal edema Extremity Narrative: DP pulses palpable and PT pulses weakly palpable bilateral. CFT less than 3 seconds to the digits bilateral. Hair growth absent to digits of foot bilateral. Dermatological: Skin is thin and demonstrating trophic changes bilateral lower extremity. Skin is excessively dry with peeling/flaking consistent with diabetic autonomic neuropathy and microvascular disease. Ulceration to the anterior aspect overlying the tibial crest has healed, no signs of infection. Ulceration noted to the lateral ankle with mixed fibrogranular layer. No signs of infection. Musculoskeletal: Muscle strength 5 of 5 age-appropriate. Decreased ankle range of motion in dorsiflexion with the knee extended without pain or crepitus bilateral. Decreased range of motion of the first metatarsophalangeal joint without pain or crepitus bilateral. There is hammertoe deformity of lesser digits bilateral without pain to palpation. Skin no rashes or lesions noted, skin turgor normal and no jaundice Neuro moves all extremities Debridement Note Debridement Note Wound debrided: Left lateral ankle Laterality: Left Wound Grade/Stage: Miguel stage I Type of Debridement: Excisional debridement Anesthesia Used: 5% Lidocaine Gel Depth: Down to and including healthy tissue and in the subcutaneous layer Percentage of wound debrided: 100 Instrument Used: 5mm curette Tissue Removed: Fibrous, devitalized subcutaneous, biofilm, slough Severity: Fat Layer Exposed Amount of bleeding with debridement: Mild Bleeding Controlled with: Compression and gauze Patient tolerated procedure: Patient tolerated procedure well Post-Debridement Measurements and Additional Note: Post-Debridement Measurements/Treatment - Nurse 1 - General Ulcer Assessment Start: 06/06/23 08:05 Freq: Status: Active Protocol: OLIVIA Activity Type Activity Date Activity User E-sign Co-sign Detail Recorded Client Recorded Date Recorded By Document 06/06/23 08:05 KW Desktop 06/06/23 08:08 KW Document 06/13/23 08:05 KW Desktop 06/13/23 08:06 KW 06/06/23 06/13/23 08:05 08:05 - Today's Visit Information Type of service Follow-up Visit Follow-up Visit (Physician/MACHINE STRAP BUCKLER (Physician/MACHINE STRAP BUCKLER ) ) Arrival Mode Ambulatory,Cane Ambulatory Accompanied by Patient Identification Verified (Name & Yes Yes ) Height and Weight Body Mass Index (BMI) 31.4 31.4 BMI Classification Obese Obese Vital Signs Temperature (97.8 F-99.1 F) 96.5 F L 96.9 F L Temperature Source Temporal Temporal Pulse Rate (60-100) 83 Pulse Location Monitor Respiratory Rate (12-18) 18 18 Respiratory rate source Observation Observation Oxygen Delivery Method Room Air Room Air Blood Pressure (90/60-120/80) 100/65 154/77 H Blood Pressure Mean (mm Hg) 76 102 Source Monitor Monitor Position Sitting Semi-Fowlers Blood Pressure Location Left Arm Left Forearm History Since Last Visit- (Skip if this is Patient's initial visit) Have you changed medications since your No No last visit? Any new allergies or adverse reactions No No Had a fall/change in ADL's that may No No increase risk of falls Signs or symptoms of abuse and/or No No neglect since last visit Have you been in the hospital since your No No last visit? Has dressing in place as prescribed Yes Yes Has compression in place as prescribed Yes Yes Has offloadiing in place as prescribed No No Experienced any changes in pain level or No management Left Footwear Regular Shoe Regular Shoe Right Footwear Regular Shoe Regular Shoe Pain Scale: 0-10 Numeric Is Patient Pain Free? Yes Yes WC - Nurse 1 - General Ulcer Measurement Start: 06/06/23 08:05 Freq: Status: Active Protocol: Activity Type Activity Date Activity User E-sign Co-sign Detail Recorded Client Recorded Date Recorded By Document 06/06/23 08:05 KW Desktop 06/06/23 08:08 KW Document 06/13/23 08:05 [employer] Desktop 06/13/23 08:06 KW 06/06/23 06/13/23 08:05 08:05 Wound Center Nurse 1 #9 LT ANKLE -Current Size (cm) - Length 1.4 1.4 -Current Size (cm) - Width 0.9 0.6 -Current Size (cm) - Depth 0.2 0.2 -Total Square Cm 1.26 0.84 -Exudate Amt Medium Medium -Exudate Type Serosanguineous Serosanguineous -Wound Margin Distinct, Distinct, Outline Outline Attached Attached -Granulation Amt Small (1-33%) Medium (34-66%) -Granulation Quality Red Red -Necrosis Amt Medium (34-66%) Small (1-33%) -Necrotic Tissue Type Adherent Slough Adherent Slough -Texture (Jada-wound Skin Appearance) Assessed Assessed -Moisture (Jada-wound Skin Appearance) Assessed,Dry/ Assessed Scaly -Color (Jada-wound Skin Appearance) Assessed Assessed -Temperature (Jada-wound Skin No Abnormality Appearance) (Pt Warm) -Ulcer Cleansing Soap and Water Soap and Water -Anesthetic Used 5% Lidocaine 5% Lidocaine Gel Gel Left Calf (cm) 38.2 38 Left Ankle (cm) 22.1 21.7 WC - Nurse 2 - General Ulcer CM Notes Start: 06/06/23 08:05 Freq: Status: Active Protocol: Activity Type Activity Date Activity User E-sign Co-sign Detail Recorded Client Recorded Date Recorded By Document 06/06/23 09:21 PL Tablet 06/06/23 09:25 PL 06/06/23 09:21 Wound Center Nurse 2 #9 LT ANKLE -Time 08:30 -Correct Patient Yes -Correct Side, Site, Position Yes -Correct Procedure Yes -Procedure Performed Yes -Type of Procedure Debridement -Clinical Debridement Subcutaneous -Tissue Removed Subcutaneous -Post Debridement (cm) - Length 1.5 -Post Debridement (cm) - Width 0.9 -Post Debridement (cm) - Depth 0.2 -Total Square (Post) (cm) 1.35 -Area of Debridement (cm) - Length 1.5 -Area of Debridement (cm) - Width 0.9 -Total Square (Area) (cm) 1.35 -Undermining/Tunneling No -Circular Undermining No -Wound/Ulcer Outcome Not Healed -Ulcer Cleansing Rinsed/ Irrigated with Saline -Foul Odor after Cleansing No -Bioengineered Tissue Yes -Type of Bioengineered Tissue Epifix 18mm Disc -Expiration Date 02/02/28 -Product Lot Number [id number] -Percent Used 100 -Bleeding Controlled with Pressure -Treatment Response Procedure Tolerated Well -Debridement - Subq, 1st 20sq cm No -Apply Skin Sub - 1st 25 sq cm - Legs 1 -Epifix 18mm Disc 3 Pain Scale: 0-10 Numeric Is Patient Pain Free? Yes BRYANNA - Nurse 3 - General Ulcer D/C NN Start: 06/06/23 08:05 Freq: Status: Active Protocol: Activity Type Activity Date Activity User E-sign Co-sign Detail Recorded Client Recorded Date Recorded By Document 06/06/23 08:38 KW Desktop 06/06/23 08:39 KW 06/06/23 08:38 Wound Care Center Nurse 3 #9 LT ANKLE -Ulcer Cleansing Rinsed/ Irrigated with Saline -Primary Dressing Covered/Secured with Dry Gauze & Roll Gauze, Secured with Tape Pain Scale: 0-10 Numeric Is Patient Pain Free? Yes WC - Visit Discharge Discharge Condition Stable Ambulatory Status Ambulatory,Cane Transportation Private Auto Medication Reconcilliation completed & No provided to patient/care provider Clinical Summary of Care Provided Yes Assessment/Plan Assessment/Plan (1) Non-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: CODE(S): L97.322 - Non-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 (2) Delayed wound healing: CODE(S): T14.8XXD - Other injury of unspecified body region, subsequent encounter (3) 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 layer exposed: CODE(S): L97.222 - 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 layer exposed (4) Venous insufficiency of both lower extremities: CODE(S): I87.2 - Venous insufficiency (chronic) (peripheral) (5) Chronic diastolic (congestive) heart failure: CODE(S): I50.32 - Chronic diastolic (congestive) heart failure (6) COPD (chronic obstructive pulmonary disease): CODE(S): J44.9 - Chronic obstructive pulmonary disease, unspecified (7) DM type 2 (diabetes mellitus, type 2): CODE(S): E11.9 - Type 2 diabetes mellitus without complications QUALIFIERS: Diabetes mellitus complication status: with other specified complication Diabetes mellitus residential insulin use: with residential use Qualified Code(s): E11.69 - Type 2 diabetes mellitus with other specified complication; Z79.4 - senior living (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 Patient had followed Dr. Anderson. Ulceration to the left anterior lower extremity remains healed. No signs of infection. Left lateral ankle measures 1.5 cm x 0.9 cm x 0.2 cm. Wound underwent debridement as noted in clinical panel above. EpiFix graft #4 applied to wound bed. Site dressed with Adaptic touch and anchored with Steri-Strips then dressed with dry sterile dressing. He was instructed to not get the dressing wet. They are to change outer layer as needed. Lateral ankle wound demonstrates no reduction in size vs previous visit. Will look to apply 3M compression wrap vs unna boot at next visit as ankle motion may be contributing factor of tension on wound. Discussed continued diabetic diet to ensure proper glucose control. Recent A1c 6.4%. Discussed that this is a good standing for control of his diabetes and will aid in wound healing. Discussed with to aid in daily foot checks as her is blind. Discussed wearing shoe gear at all times and to never go barefoot. Socks include barefoot. They voiced understanding of this today. Recommend continued follow-up with PCP for continued diabetic management. Discussed adequate protein intake to continue to aid in wound healing. Also discussed Negrito supplementation to aid in wound healing. Discussed signs and symptoms with the pertaining to infection. Discussed if she notices increasing redness about the wound margin spreading up the leg, any purulent drainage from the wound site, increasing foul odor from the wound, or if he experiences fever greater than 101 degree, nausea, vomiting, chills that these are signs of progressing infection and he needs to report to the ED. They voiced understanding of this today. The following work up and care recommendations were made: Dressing: EpiFix, Adaptic touch, Steri-Strips, dry sterile dressing. Change outer dressing as needed Wash: Do not get wet Tissue growth optimization: EpiFix Offload: Ensure anterior leg is not bumped and discussed no picking at skin sites. Vascular: DP and PT pulses palpable with adequate capillary fill time. However skin demonstrates trophic changes consistent with microvascular disease. Edema: No edema currently, has history of chronic venous stasis. Recommend continued compression stocking. Infection: No signs of infection. Pain: May take [id number] Tylenol extra strength for discomfort. Host factors: DM type II, chronic venous stasis, CHF, COPD, blindness I answered all the patient's questions. To return to the wound healing center in 1 week or call sooner if the patient has any questions or concerns.
[2023-06-20 08:06] VITALS: BP 138/75; PULSE 104; RESP 18; TEMP 36.3; BMI 31.4
--- NOTE | 2023-06-20 08:32 | PCM.WC.PN ---
History of Present Illness Date of Service: 06/20/23 Chief Complaint: Left Leg Ulcer History of Wound: Mr. Turcios is a 72-year-old with PMHx of of diabetes mellitus type 2, venous insufficiency bilateral lower extremity, history of multiple ulcerations, HTN, HLD, COPD, A-fib, CHF. He presents back to the wound care center today accompanied by his for nonhealing left lower extremity ulceration. states he has either bumped his leg on something or picked at some skin on the front of his leg creating a new wound. They state they have been following with Dr. Anderson in [place] as well as PCP Dr. Olguin. They state occasional use of mupirocin topical ointment but otherwise have not been applying dressings to the site. They state the wound has been present for a few weeks and has not made much progress and thus they were referred to the wound care center for continued wound healing. He denies N/V/F/chills. He has no further complaints. Subjective Subjective Patient is a 73-year-old male who follows up to the wound care center today for a left lower extremity ulceration. His states she has left graft in place and is only changing outer dressings as needed. She does state that he does not keep feet elevated as much as he should. He is disappointed today as he is still reeling from the [place] playoff loss. He denies constitutional symptoms today. Denies further complaints today. Objective Data Objective Data Vital Signs: Vital Signs Temp Pulse Resp BP O2 Del Method 97.4 F L 104 H 18 138/75 H Room Air 06/20/23 08:06 06/20/23 08:06 06/20/23 08:06 06/20/23 08:06 06/20/23 08:06 Oxygen Delivery Method Room Air Weight: 114.015 kg Body Mass Index (BMI) 31.4 Physical Exam Const alert, oriented x3 and no apparent distress General Appearance: cooperative HEENT normocephalic Eyes General Eye: normal appearance of both eyes Neck General: normal visual inspection Lymph Lymphatic: no lymphadenopathy noted and no lymphedema noted Resp normal respiratory effort Cardio regular rate and regular rhythm Extremity normal capillary refill, no joint enlargement, no calf tenderness and no pedal edema Extremity Narrative: DP pulses palpable and PT pulses weakly palpable bilateral. CFT less than 3 seconds to the digits bilateral. Hair growth absent to digits of foot bilateral. Dermatological: Skin is thin and demonstrating trophic changes bilateral lower extremity. Skin is excessively dry with peeling/flaking consistent with diabetic autonomic neuropathy and microvascular disease. Ulceration to the anterior aspect overlying the tibial crest has healed, no signs of infection. Ulceration noted to the lateral ankle with mixed fibrogranular layer. No signs of infection. Musculoskeletal: Muscle strength 5 of 5 age-appropriate. Decreased ankle range of motion in dorsiflexion with the knee extended without pain or crepitus bilateral. Decreased range of motion of the first metatarsophalangeal joint without pain or crepitus bilateral. There is hammertoe deformity of lesser digits bilateral without pain to palpation. Skin no rashes or lesions noted, skin turgor normal and no jaundice Neuro moves all extremities Debridement Note Debridement Note Wound debrided: Left lateral ankle Laterality: Left Wound Grade/Stage: Miguel stage I Type of Debridement: Excisional debridement Anesthesia Used: 5% Lidocaine Gel Depth: Down to and including healthy tissue and in the subcutaneous layer Percentage of wound debrided: 100 Instrument Used: 5mm curette Tissue Removed: Fibrous, devitalized subcutaneous, biofilm, slough Severity: Fat Layer Exposed Amount of bleeding with debridement: Mild Bleeding Controlled with: Compression and gauze Patient tolerated procedure: Patient tolerated procedure well Post-Debridement Measurements and Additional Note: Post-Debridement Measurements/Treatment - Nurse 1 - General Ulcer Assessment Start: 06/06/23 08:05 Freq: Status: Active Protocol: [email or web address].[email or web address] Activity Type Activity Date Activity User E-sign Co-sign Detail Recorded Client Recorded Date Recorded By Document 06/06/23 08:05 KW Desktop 06/06/23 08:08 KW Document 06/13/23 08:05 KW Desktop 06/13/23 08:06 KW Document 06/20/23 08:06 KW Desktop 06/20/23 08:15 KW 06/06/23 06/13/23 06/20/23 08:05 08:05 08:06 - Today's Visit Information Type of service Follow-up Visit Follow-up Visit Follow-up Visit (Physician/WELDING MACHINE OPERATOR THERMIT (Physician/WELDING MACHINE OPERATOR THERMIT (Physician/WELDING MACHINE OPERATOR THERMIT ) ) ) Arrival Mode Ambulatory,Cane Ambulatory Ambulatory Accompanied by Patient Identification Verified (Name & Yes Yes Yes ) Height and Weight Body Mass Index (BMI) 31.4 31.4 31.4 BMI Classification Obese Obese Obese Vital Signs Temperature (97.8 F-99.1 F) 96.5 F L 96.9 F L 97.4 F L Temperature Source Temporal Temporal Temporal Pulse Rate (60-100) 83 104 H Pulse Location Monitor Monitor Respiratory Rate (12-18) 18 18 18 Respiratory rate source Observation Observation Observation Oxygen Delivery Method Room Air Room Air Room Air Blood Pressure (90/60-120/80) 100/65 154/77 H 138/75 H Blood Pressure Mean (mm Hg) 76 102 96 Source Monitor Monitor Monitor Position Sitting Semi-Fowlers Sitting Blood Pressure Location Left Arm Left Forearm Left Forearm History Since Last Visit- (Skip if this is Patient's initial visit) Have you changed medications since your No No No last visit? Any new allergies or adverse reactions No No No Had a fall/change in ADL's that may No No No increase risk of falls Signs or symptoms of abuse and/or No No No neglect since last visit Have you been in the hospital since your No No No last visit? Has dressing in place as prescribed Yes Yes Yes Has compression in place as prescribed Yes Yes Yes Has offloadiing in place as prescribed No No No Experienced any changes in pain level or No No management Left Footwear Regular Shoe Regular Shoe Regular Shoe Right Footwear Regular Shoe Regular Shoe Regular Shoe Pain Scale: 0-10 Numeric Is Patient Pain Free? Yes Yes Yes WC - Nurse 1 - General Ulcer Measurement Start: 06/06/23 08:05 Freq: Status: Active Protocol: Activity Type Activity Date Activity User E-sign Co-sign Detail Recorded Client Recorded Date Recorded By Document 06/06/23 08:05 KW Desktop 06/06/23 08:08 KW Document 06/13/23 08:05 KW Desktop 06/13/23 08:06 KW Document 06/20/23 08:06 KW Desktop 06/20/23 08:15 KW 06/06/23 06/13/23 06/20/23 08:05 08:05 08:06 Wound Center Nurse 1 #9 LT ANKLE -Current Size (cm) - Length 1.4 1.4 1.5 -Current Size (cm) - Width 0.9 0.6 0.7 -Current Size (cm) - Depth 0.2 0.2 0.2 -Total Square Cm 1.26 0.84 1.05 -Date of Last Picture (Recall this 06/20/23 field) -Photo Taken Yes -Exudate Amt Medium Medium Medium -Exudate Type Serosanguineous Serosanguineous Serosanguineous -Wound Margin Distinct, Distinct, Distinct, Outline Outline Outline Attached Attached Attached -Granulation Amt Small (1-33%) Medium (34-66%) Medium (34-66%) -Granulation Quality Red Red [place] -Necrosis Amt Medium (34-66%) Small (1-33%) Small (1-33%) -Necrotic Tissue Type Adherent Slough Adherent Slough Adherent Slough -Texture (Jada-wound Skin Appearance) Assessed Assessed Assessed -Moisture (Jada-wound Skin Appearance) Assessed,Dry/ Assessed Assessed Scaly -Color (Jada-wound Skin Appearance) Assessed Assessed Assessed -Temperature (Jada-wound Skin No Abnormality No Abnormality Appearance) (Pt Warm) (Pt Warm) -Ulcer Cleansing Soap and Water Soap and Water Soap and Water -Anesthetic Used 5% Lidocaine 5% Lidocaine 5% Lidocaine Gel Gel Gel Left Calf (cm) 38.2 38 38.5 Left Ankle (cm) 22.1 21.7 21.3 WC - Nurse 2 - General Ulcer CM Notes Start: 06/06/23 08:05 Freq: Status: Active Protocol: Activity Type Activity Date Activity User E-sign Co-sign Detail Recorded Client Recorded Date Recorded By Document 06/06/23 09:21 PL Tablet 06/06/23 09:25 PL Document 06/13/23 08:35 PL Tablet 06/13/23 08:39 PL 06/06/23 06/13/23 09:21 08:35 Wound Center Nurse 2 #9 LT ANKLE -Time 08:30 08:30 -Correct Patient Yes Yes -Correct Side, Site, Position Yes Yes -Correct Procedure Yes Yes -Procedure Performed Yes Yes -Type of Procedure Debridement Debridement -Clinical Debridement Subcutaneous Subcutaneous -Tissue Removed Subcutaneous Subcutaneous -Post Debridement (cm) - Length 1.5 1.5 -Post Debridement (cm) - Width 0.9 0.9 -Post Debridement (cm) - Depth 0.2 0.2 -Total Square (Post) (cm) 1.35 1.35 -Area of Debridement (cm) - Length 1.5 1.5 -Area of Debridement (cm) - Width 0.9 0.9 -Total Square (Area) (cm) 1.35 1.35 -Tunneling No -Undermining/Tunneling No No -Circular Undermining No No -Wound/Ulcer Outcome Not Healed Not Healed -Ulcer Cleansing Rinsed/ Rinsed/ Irrigated with Irrigated with Saline Saline -Foul Odor after Cleansing No No -Bioengineered Tissue Yes Yes -Type of Bioengineered Tissue Epifix 18mm Epifix 18mm Disc Disc -Expiration Date 02/02/28 02/02/28 -Product Lot Number [id number] -Percent Used 100 100 -Bleeding Controlled with Pressure Pressure -Treatment Response Procedure Procedure Tolerated Well Tolerated Well -Debridement - Subq, 1st 20sq cm No No -Apply Skin Sub - 1st 25 sq cm - Legs 1 1 -Epifix 18mm Disc 3 3 Pain Scale: 0-10 Numeric Is Patient Pain Free? Yes Yes - Nurse 3 - General Ulcer D/C NN Start: 06/06/23 08:05 Freq: Status: Active Protocol: Activity Type Activity Date Activity User E-sign Co-sign Detail Recorded Client Recorded Date Recorded By Document 06/06/23 08:38 KW Desktop 06/06/23 08:39 KW Document 06/13/23 08:36 KW Desktop 06/13/23 08:37 KW 06/06/23 06/13/23 08:38 08:36 Wound Care Center Nurse 3 #9 LT ANKLE -Ulcer Cleansing Rinsed/ Irrigated with Saline -Primary Dressing Covered/Secured with Dry Gauze & Dry Gauze & Roll Gauze, Roll Gauze, Secured with Secured with Tape Tape Left -Tubular Bandage Single Layer -Size of Tubigrip Used Size D -Size D ($) 1 Pain Scale: 0-10 Numeric Is Patient Pain Free? Yes Yes - Visit Discharge Discharge Condition Stable Stable Ambulatory Status Ambulatory,Cane Ambulatory,Cane Transportation Private Auto Private Auto Medication Reconcilliation completed & No No provided to patient/care provider Clinical Summary of Care Provided Yes Yes Assessment/Plan Assessment/Plan (1) Non-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: CODE(S): L97.322 - Non-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 (2) Delayed wound healing: CODE(S): T14.8XXD - Other injury of unspecified body region, subsequent encounter (3) 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 layer exposed: CODE(S): L97.222 - 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 layer exposed (4) Venous insufficiency of both lower extremities: CODE(S): I87.2 - Venous insufficiency (chronic) (peripheral) (5) Chronic diastolic (congestive) heart failure: CODE(S): I50.32 - Chronic diastolic (congestive) heart failure (6) COPD (chronic obstructive pulmonary disease): CODE(S): J44.9 - Chronic obstructive pulmonary disease, unspecified (7) DM type 2 (diabetes mellitus, type 2): CODE(S): E11.9 - Type 2 diabetes mellitus without complications QUALIFIERS: Diabetes mellitus shelter insulin use: with watermelon harvesting supervisor use Diabetes mellitus complication status: with other specified complication Qualified Code(s): E11.69 - Type 2 diabetes mellitus with other specified complication; Z79.4 - rat exterminator (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 Patient had followed Dr. Anderson. Ulceration to the left anterior lower extremity remains healed. No signs of infection. Left lateral ankle measures 1.3 cm x 0.8 cm x 0.2 cm. Wound underwent debridement as noted in clinical panel above. EpiFix graft #5 applied to wound bed. Site dressed with Adaptic touch and anchored with Steri-Strips then dressed with dry sterile dressing. He was instructed to not get the dressing wet. They are to change outer layer as needed. Lateral ankle wound demonstrates slight reduction in size vs previous visit. Unna boot applied today as ankle motion may be contributing factor of tension on wound. He was instructed to not get dressings wet Discussed continued diabetic diet to ensure proper glucose control. Recent A1c 6.4%. Discussed that this is a good standing for control of his diabetes and will aid in wound healing. Discussed with to aid in daily foot checks as her is blind. Discussed wearing shoe gear at all times and to never go barefoot. Socks include barefoot. They voiced understanding of this today. Recommend continued follow-up with PCP for continued diabetic management. Discussed adequate protein intake to continue to aid in wound healing. Also discussed Negrito supplementation to aid in wound healing. Discussed signs and symptoms with the pertaining to infection. Discussed if she notices increasing redness about the wound margin spreading up the leg, any purulent drainage from the wound site, increasing foul odor from the wound, or if he experiences fever greater than 101 degree, nausea, vomiting, chills that these are signs of progressing infection and he needs to report to the ED. They voiced understanding of this today. The following work up and care recommendations were made: Dressing: EpiFix, Adaptic touch, Steri-Strips, Unna boot. Leave dressings intact and Do not get wet. Wash: Do not get wet Tissue growth optimization: EpiFix Offload: Ensure anterior leg is not bumped and discussed no picking at skin sites. Vascular: DP and PT pulses palpable with adequate capillary fill time. However skin demonstrates trophic changes consistent with microvascular disease. Edema: No edema currently, has history of chronic venous stasis. Recommend continued compression stocking. Infection: No signs of infection. Pain: May take [id number] Tylenol extra strength for discomfort. Host factors: DM type II, chronic venous stasis, CHF, COPD, blindness I answered all the patient's questions. To return to the wound healing center in 1 week or call sooner if the patient has any questions or concerns.
[2023-06-27 08:04] VITALS: BP 119/64; PULSE 95; RESP 18; TEMP 36.2; BMI 31.4
--- NOTE | 2023-06-27 08:16 | PCM.WC.PN ---
History of Present Illness Date of Service: 06/27/23 Chief Complaint: Left Leg Ulcer History of Wound: Mr. Turcios is a 72-year-old with PMHx of of diabetes mellitus type 2, venous insufficiency bilateral lower extremity, history of multiple ulcerations, HTN, HLD, COPD, A-fib, CHF. He presents back to the wound care center today accompanied by his for nonhealing left lower extremity ulceration. states he has either bumped his leg on something or picked at some skin on the front of his leg creating a new wound. They state they have been following with Dr. Anderson in [place] as well as PCP Dr. Olguin. They state occasional use of mupirocin topical ointment but otherwise have not been applying dressings to the site. They state the wound has been present for a few weeks and has not made much progress and thus they were referred to the wound care center for continued wound healing. He denies N/V/F/chills. He has no further complaints. Subjective Subjective Patient is a 73-year-old male who follows up to the wound care center today for a left lower extremity ulceration. His states she has left graft in place and kept unna boot dry. She does state that he does not keep feet elevated as much as he should. He denies constitutional symptoms today. Denies further complaints today. Objective Data Objective Data Vital Signs: Vital Signs Temp Pulse Resp BP O2 Del Method 97.1 F L 95 18 119/64 Room Air 06/27/23 08:04 06/27/23 08:04 06/27/23 08:04 06/27/23 08:04 06/27/23 08:04 Oxygen Delivery Method Room Air Weight: 114.015 kg Body Mass Index (BMI) 31.4 Physical Exam Const alert, oriented x3 and no apparent distress General Appearance: cooperative HEENT normocephalic Eyes General Eye: normal appearance of both eyes Neck General: normal visual inspection Lymph Lymphatic: no lymphadenopathy noted and no lymphedema noted Resp normal respiratory effort Cardio regular rate and regular rhythm Extremity normal capillary refill, no joint enlargement, no calf tenderness and no pedal edema Extremity Narrative: DP pulses palpable and PT pulses weakly palpable bilateral. CFT less than 3 seconds to the digits bilateral. Hair growth absent to digits of foot bilateral. Dermatological: Skin is thin and demonstrating trophic changes bilateral lower extremity. Skin is excessively dry with peeling/flaking consistent with diabetic autonomic neuropathy and microvascular disease. Ulceration to the anterior aspect overlying the tibial crest has healed, no signs of infection. Ulceration noted to the lateral ankle with mixed fibrogranular layer. No signs of infection. Musculoskeletal: Muscle strength 5 of 5 age-appropriate. Decreased ankle range of motion in dorsiflexion with the knee extended without pain or crepitus bilateral. Decreased range of motion of the first metatarsophalangeal joint without pain or crepitus bilateral. There is hammertoe deformity of lesser digits bilateral without pain to palpation. Skin no rashes or lesions noted, skin turgor normal and no jaundice Neuro moves all extremities Debridement Note Debridement Note Wound debrided: Left lateral ankle Laterality: Left Wound Grade/Stage: Miguel stage I Type of Debridement: Excisional debridement Anesthesia Used: 5% Lidocaine Gel Depth: Down to and including healthy tissue and in the subcutaneous layer Percentage of wound debrided: 100 Instrument Used: 5mm curette Tissue Removed: Fibrous, devitalized subcutaneous, biofilm, slough Severity: Fat Layer Exposed Amount of bleeding with debridement: Mild Bleeding Controlled with: Compression and gauze Patient tolerated procedure: Patient tolerated procedure well Post-Debridement Measurements and Additional Note: Post-Debridement Measurements/Treatment - Nurse 1 - General Ulcer Assessment Start: 06/06/23 08:05 Freq: Status: Active Protocol: OLIVIA Activity Type Activity Date Activity User E-sign Co-sign Detail Recorded Client Recorded Date Recorded By Document 06/06/23 08:05 KW Desktop 06/06/23 08:08 KW Document 06/13/23 08:05 KW Desktop 06/13/23 08:06 KW Document 06/20/23 08:06 KW Desktop 06/20/23 08:15 KW Document 06/27/23 08:04 KW Desktop 06/27/23 08:10 KW 06/06/23 06/13/23 06/20/23 08:05 08:05 08:06 - Today's Visit Information Type of service Follow-up Visit Follow-up Visit Follow-up Visit (Physician/ELECTRICAL ASSISTANT (Physician/ELECTRICAL ASSISTANT (Physician/ELECTRICAL ASSISTANT ) ) ) Arrival Mode Ambulatory,Cane Ambulatory Ambulatory Accompanied by Patient Identification Verified (Name & Yes Yes Yes ) Height and Weight Body Mass Index (BMI) 31.4 31.4 31.4 BMI Classification Obese Obese Obese Vital Signs Temperature (97.8 F-99.1 F) 96.5 F L 96.9 F L 97.4 F L Temperature Source Temporal Temporal Temporal Pulse Rate (60-100) 83 104 H Pulse Location Monitor Monitor Respiratory Rate (12-18) 18 18 18 Respiratory rate source Observation Observation Observation Oxygen Delivery Method Room Air Room Air Room Air Blood Pressure (90/60-120/80) 100/65 154/77 H 138/75 H Blood Pressure Mean (mm Hg) 76 102 96 Source Monitor Monitor Monitor Position Sitting Semi-Fowlers Sitting Blood Pressure Location Left Arm Left Forearm Left Forearm History Since Last Visit- (Skip if this is Patient's initial visit) Have you changed medications since your No No No last visit? Any new allergies or adverse reactions No No No Had a fall/change in ADL's that may No No No increase risk of falls Signs or symptoms of abuse and/or No No No neglect since last visit Have you been in the hospital since your No No No last visit? Has dressing in place as prescribed Yes Yes Yes Has compression in place as prescribed Yes Yes Yes Has offloadiing in place as prescribed No No No Experienced any changes in pain level or No No management Left Footwear Regular Shoe Regular Shoe Regular Shoe Right Footwear Regular Shoe Regular Shoe Regular Shoe Pain Scale: 0-10 Numeric Is Patient Pain Free? Yes Yes Yes 06/27/23 08:04 WC - Today's Visit Information Type of service Follow-up Visit (Physician/ELECTRICAL ASSISTANT ) Arrival Mode Ambulatory,Cane Accompanied by Patient Identification Verified (Name & Yes ) Height and Weight Body Mass Index (BMI) 31.4 BMI Classification Obese Vital Signs Temperature (97.8 F-99.1 F) 97.1 F L Temperature Source Temporal Pulse Rate (60-100) 95 Pulse Location Monitor Respiratory Rate (12-18) 18 Respiratory rate source Observation Oxygen Delivery Method Room Air Blood Pressure (90/60-120/80) 119/64 Blood Pressure Mean (mm Hg) 82 Source Monitor Position Semi-Fowlers Blood Pressure Location Left Arm History Since Last Visit- (Skip if this is Patient's initial visit) Have you changed medications since your No last visit? Any new allergies or adverse reactions No Had a fall/change in ADL's that may No increase risk of falls Signs or symptoms of abuse and/or No neglect since last visit Have you been in the hospital since your No last visit? Has dressing in place as prescribed Yes Has compression in place as prescribed Yes Has offloadiing in place as prescribed No Experienced any changes in pain level or No management Left Footwear Regular Shoe Right Footwear Regular Shoe Pain Scale: 0-10 Numeric Is Patient Pain Free? Yes WC - Nurse 1 - General Ulcer Measurement Start: 06/06/23 08:05 Freq: Status: Active Protocol: Activity Type Activity Date Activity User E-sign Co-sign Detail Recorded Client Recorded Date Recorded By Document 06/06/23 08:05 KW Desktop 06/06/23 08:08 KW Document 06/13/23 08:05 KW Desktop 06/13/23 08:06 KW Document 06/20/23 08:06 KW Desktop 06/20/23 08:15 KW Document 06/27/23 08:04 KW Desktop 06/27/23 08:10 KW 06/06/23 06/13/23 06/20/23 08:05 08:05 08:06 Wound Center Nurse 1 #9 LT ANKLE -Current Size (cm) - Length 1.4 1.4 1.5 -Current Size (cm) - Width 0.9 0.6 0.7 -Current Size (cm) - Depth 0.2 0.2 0.2 -Total Square Cm 1.26 0.84 1.05 -Date of Last Picture (Recall this 06/20/23 field) -Photo Taken Yes -Exudate Amt Medium Medium Medium -Exudate Type Serosanguineous Serosanguineous Serosanguineous -Wound Margin Distinct, Distinct, Distinct, Outline Outline Outline Attached Attached Attached -Granulation Amt Small (1-33%) Medium (34-66%) Medium (34-66%) -Granulation Quality Red Red [place] -Necrosis Amt Medium (34-66%) Small (1-33%) Small (1-33%) -Necrotic Tissue Type Adherent Slough Adherent Slough Adherent Slough -Texture (Jada-wound Skin Appearance) Assessed Assessed Assessed -Moisture (Jada-wound Skin Appearance) Assessed,Dry/ Assessed Assessed Scaly -Color (Jada-wound Skin Appearance) Assessed Assessed Assessed -Temperature (Jada-wound Skin No Abnormality No Abnormality Appearance) (Pt Warm) (Pt Warm) -Ulcer Cleansing Soap and Water Soap and Water Soap and Water -Foul Odor after Cleansing -Anesthetic Used 5% Lidocaine 5% Lidocaine 5% Lidocaine Gel Gel Gel Left Calf (cm) 38.2 38 38.5 Left Ankle (cm) 22.1 21.7 21.3 06/27/23 08:04 Wound Center Nurse 1 #9 LT ANKLE -Current Size (cm) - Length 1.4 -Current Size (cm) - Width 1.1 -Current Size (cm) - Depth 0.1 -Total Square Cm 1.54 -Date of Last Picture (Recall this 06/27/23 field) -Photo Taken Yes -Exudate Amt Medium -Exudate Type Serosanguineous -Wound Margin Thickened -Granulation Amt Small (1-33%) -Granulation Quality [place] -Necrosis Amt Medium (34-66%) -Necrotic Tissue Type Adherent Slough -Texture (Jada-wound Skin Appearance) Assessed -Moisture (Jada-wound Skin Appearance) Assessed -Color (Jada-wound Skin Appearance) Assessed -Temperature (Jada-wound Skin No Abnormality Appearance) (Pt Warm) -Ulcer Cleansing Soap and Water -Foul Odor after Cleansing No -Anesthetic Used 5% Lidocaine Gel Left Calf (cm) 36.5 Left Ankle (cm) 22 WC - Nurse 2 - General Ulcer CM Notes Start: 06/06/23 08:05 Freq: Status: Active Protocol: Activity Type Activity Date Activity User E-sign Co-sign Detail Recorded Client Recorded Date Recorded By Document 06/06/23 09:21 PL Tablet 06/06/23 09:25 PL Document 06/13/23 08:35 PL Tablet 06/13/23 08:39 PL Document 06/20/23 08:37 PL Tablet 06/20/23 08:38 PL Edit Result 06/20/23 08:37 PL (1) Tablet 06/20/23 10:22 PL (1) #9 LT ANKLE - Expiration Date => 02/02/28 - Product Lot Number => [id number] - Percent Used => 100 06/06/23 06/13/23 06/20/23 09:21 08:35 08:37 Wound Center Nurse 2 #9 LT ANKLE -Time 08:30 08:30 08:20 -Correct Patient Yes Yes Yes -Correct Side, Site, Position Yes Yes Yes -Correct Procedure Yes Yes Yes -Procedure Performed Yes Yes Yes -Type of Procedure Debridement Debridement Debridement -Clinical Debridement Subcutaneous Subcutaneous Subcutaneous -Tissue Removed Subcutaneous Subcutaneous Subcutaneous -Post Debridement (cm) - Length 1.5 1.5 1.3 -Post Debridement (cm) - Width 0.9 0.9 0.8 -Post Debridement (cm) - Depth 0.2 0.2 0.2 -Total Square (Post) (cm) 1.35 1.35 1.04 -Area of Debridement (cm) - Length 1.5 1.5 1.3 -Area of Debridement (cm) - Width 0.9 0.9 0.8 -Total Square (Area) (cm) 1.35 1.35 1.04 -Tunneling No No -Undermining/Tunneling No No No -Circular Undermining No No No -Wound/Ulcer Outcome Not Healed Not Healed Not Healed -Ulcer Cleansing Rinsed/ Rinsed/ Wound Cleanser Irrigated with Irrigated with Saline Saline -Foul Odor after Cleansing No No -Bioengineered Tissue Yes Yes Yes -Type of Bioengineered Tissue Epifix 18mm Epifix 18mm Epifix 18mm Disc Disc Disc -Expiration Date 02/02/28 02/02/28 02/02/28 -Product Lot Number [id number] -Percent Used 100 100 100 -Bleeding Controlled with Pressure Pressure Pressure -Treatment Response Procedure Procedure Procedure Tolerated Well Tolerated Well Tolerated Well -Debridement - Subq, 1st 20sq cm No No No -Apply Skin Sub - 1st 25 sq cm - Legs 1 1 1 -Epifix 18mm Disc 3 3 3 Pain Scale: 0-10 Numeric Is Patient Pain Free? Yes Yes Yes WC - Nurse 3 - General Ulcer D/C NN Start: 06/06/23 08:05 Freq: Status: Active Protocol: Activity Type Activity Date Activity User E-sign Co-sign Detail Recorded Client Recorded Date Recorded By Document 06/06/23 08:38 KW Desktop 06/06/23 08:39 KW Document 06/13/23 08:36 KW Desktop 06/13/23 08:37 KW Document 06/20/23 08:34 KW Desktop 06/20/23 08:35 KW 06/06/23 06/13/23 06/20/23 08:38 08:36 08:34 Wound Care Center Nurse 3 #9 LT ANKLE -Ulcer Cleansing Rinsed/ Irrigated with Saline -Primary Dressing Covered/Secured with Dry Gauze & Dry Gauze & Dry Gauze & Roll Gauze, Roll Gauze, Roll Gauze, Secured with Secured with Secured with Tape Tape Tape Left -Multi-Layered Wrap Application Unna Boot - Left ($) -Tubular Bandage Single Layer -Size of Tubigrip Used Size D -Size D ($) 1 Pain Scale: 0-10 Numeric Is Patient Pain Free? Yes Yes Yes WC - Visit Discharge Discharge Condition Stable Stable Stable Ambulatory Status Ambulatory,Cane Ambulatory,Cane Ambulatory,Cane Transportation Private Auto Private Auto Private Auto Medication Reconcilliation completed & No No No provided to patient/care provider Clinical Summary of Care Provided Yes Yes Yes Assessment/Plan Assessment/Plan (1) Non-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: CODE(S): L97.322 - Non-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 (2) Delayed wound healing: CODE(S): T14.8XXD - Other injury of unspecified body region, subsequent encounter (3) 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 layer exposed: CODE(S): L97.222 - 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 layer exposed (4) Venous insufficiency of both lower extremities: CODE(S): I87.2 - Venous insufficiency (chronic) (peripheral) (5) Chronic diastolic (congestive) heart failure: CODE(S): I50.32 - Chronic diastolic (congestive) heart failure (6) COPD (chronic obstructive pulmonary disease): CODE(S): J44.9 - Chronic obstructive pulmonary disease, unspecified (7) DM type 2 (diabetes mellitus, type 2): CODE(S): E11.9 - Type 2 diabetes mellitus without complications QUALIFIERS: Diabetes mellitus complication status: with other specified complication 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 Patient had followed Dr. Anderson. Ulceration to the left anterior lower extremity remains healed. No signs of infection. Left lateral ankle measures 1.3 cm x 0.8 cm x 0.3 cm. Wound underwent debridement as noted in clinical panel above. EpiFix graft #6 applied to wound bed. Site dressed with Adaptic touch and anchored with Steri-Strips then dressed with dry sterile dressing. Unna boot compression wrap applied to lower extremity. He was instructed to not get the dressing wet. Lateral ankle wound demonstrates slight reduction in size vs previous visit. Unna boot applied today as ankle motion may be contributing factor of tension on wound. He was instructed to not get dressings wet Discussed continued diabetic diet to ensure proper glucose control. Recent A1c 6.4%. Discussed that this is a good standing for control of his diabetes and will aid in wound healing. Discussed with to aid in daily foot checks as her is blind. Discussed wearing shoe gear at all times and to never go barefoot. Socks include barefoot. They voiced understanding of this today. Recommend continued follow-up with PCP for continued diabetic management. Discussed adequate protein intake to continue to aid in wound healing. Also discussed Negrito supplementation to aid in wound healing. Discussed signs and symptoms with the pertaining to infection. Discussed if she notices increasing redness about the wound margin spreading up the leg, any purulent drainage from the wound site, increasing foul odor from the wound, or if he experiences fever greater than 101 degree, nausea, vomiting, chills that these are signs of progressing infection and he needs to report to the ED. They voiced understanding of this today. The following work up and care recommendations were made: Dressing: EpiFix, Adaptic touch, Steri-Strips, Unna boot. Leave dressings intact and Do not get wet. Wash: Do not get wet Tissue growth optimization: EpiFix Offload: Ensure anterior leg is not bumped and discussed no picking at skin sites. Vascular: DP and PT pulses palpable with adequate capillary fill time. However skin demonstrates trophic changes consistent with microvascular disease. Edema: No edema currently, has history of chronic venous stasis. Recommend continued compression stocking. Infection: No signs of infection. Pain: May take [id number] Tylenol extra strength for discomfort. Host factors: DM type II, chronic venous stasis, CHF, COPD, blindness He will return in 1 week for nurse visit for Unna boot change. I answered all the patient's questions. To return to the wound healing center in 2 weeks or call sooner if the patient has any questions or concerns.
[2023-07-11 08:10] VITALS: BP 121/84; PULSE 103; RESP 16; TEMP 36.1; BMI 31.4
== END 2023-07-03 23:59 | disposition home or self-care (01) ==
LOC: WC 08:00
PROVIDERS: PCP Family Medicine; Referring Provider Family Medicine; Visit Provider Student in an Organized Health Care Education/Training Program
DX: E11.622 Type 2 diabetes mellitus with other skin ulcer (principal); L97.322 Non-pressure 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 layer exposed; J44.9 Chronic obstructive pulmonary disease, unspecified; I11.0 Hypertensive heart disease with heart failure; I50.32 Chronic diastolic (congestive) heart failure; E11.59 Type 2 diabetes mellitus with other circulatory complications; I48.11 Longstanding persistent atrial fibrillation; Z79.4 Long term (current) use of insulin; E78.5 Hyperlipidemia, unspecified; I87.2 Venous insufficiency (chronic) (peripheral)
CPT/HCPCS: 15271; 29580; Q4186

== ENCOUNTER 2023-08-01 08:00 | Outpatient (RCR) | payer MEDICARE, OTHER, SELFPAY ==
[2023-07-04 00:26] VITALS: BP 119/64; PULSE 95; RESP 18; TEMP 36.2; BMI 31.4
[2023-07-04 08:06] VITALS: BP 127/79; PULSE 86; RESP 16; TEMP 36.1; BMI 31.4
--- NOTE | 2023-07-04 08:11 | WC ---
DIOR GLEASON UNAVAILABLE FROM MATERIALS FOR NURSE VISIT. UPDATED CM PL. NEW ORDER TO APPLY 3M WRAP TO LLE. APPLIED PER RB RN.
--- NOTE | 2023-07-11 08:35 | PN.PCM_ITS ---
History of Present Illness Date of Service: 07/11/23 Chief Complaint: Left Leg Ulcer History of Wound: Mr. Turcios is a 72-year-old with PMHx of of diabetes mellitus type 2, venous insufficiency bilateral lower extremity, history of multiple ulcerations, HTN, HLD, COPD, A-fib, CHF. He presents back to the wound care center today accompanied by his for nonhealing left lower extremity ulceration. states he has either bumped his leg on something or picked at some skin on the front of his leg creating a new wound. They state they have been following with Dr. Anderson in [place] as well as PCP Dr. Olguin. They state occasional use of mupirocin topical ointment but otherwise have not been applying dressings to the site. They state the wound has been present for a few weeks and has not made much progress and thus they were referred to the wound care center for continued wound healing. He denies N/V/F/chills. He has no further complaints. Subjective Subjective Patient is a 73-year-old male who follows up to the wound care center today for a left lower extremity ulceration. His states she has left graft in place and kept unna boot dry. She does state that he does not keep feet elevated as much as he should. He denies constitutional symptoms today. Denies further complaints today. Objective Data Objective Data Vital Signs: Vital Signs Temp Pulse Resp BP O2 Del Method 97 F L 86 16 127/79 H Room Air 07/04/23 08:06 07/04/23 08:06 07/04/23 08:06 07/04/23 08:06 07/04/23 08:06 Oxygen Delivery Method Room Air Weight: 114.015 kg Body Mass Index (BMI) 31.4 Physical Exam Const alert, oriented x3 and no apparent distress General Appearance: cooperative HEENT normocephalic Eyes General Eye: normal appearance of both eyes Neck General: normal visual inspection Lymph Lymphatic: no lymphadenopathy noted and no lymphedema noted Resp normal respiratory effort Cardio regular rate and regular rhythm Extremity normal capillary refill, no joint enlargement, no calf tenderness and no pedal edema Extremity Narrative: DP pulses palpable and PT pulses weakly palpable bilateral. CFT less than 3 seconds to the digits bilateral. Hair growth absent to digits of foot bilateral. Dermatological: Skin is thin and demonstrating trophic changes bilateral lower extremity. Skin is excessively dry with peeling/flaking consistent with diabetic autonomic neuropathy and microvascular disease. Ulceration to the anterior aspect overlying the tibial crest has healed, no signs of infection. Ulceration noted to the lateral ankle with mixed fibrogranular layer. No signs of infection. Musculoskeletal: Muscle strength 5 of 5 age-appropriate. Decreased ankle range of motion in dorsiflexion with the knee extended without pain or crepitus bilateral. Decreased range of motion of the first metatarsophalangeal joint without pain or crepitus bilateral. There is hammertoe deformity of lesser digits bilateral without pain to palpation. Skin no rashes or lesions noted, skin turgor normal and no jaundice Neuro moves all extremities Debridement Note Debridement Note Wound debrided: Left lateral ankle Laterality: Left Wound Grade/Stage: Miguel stage I Type of Debridement: Excisional debridement Anesthesia Used: 5% Lidocaine Gel Depth: Down to and including healthy tissue and in the subcutaneous layer Percentage of wound debrided: 100 Instrument Used: 3mm curette Tissue Removed: Fibrous, devitalized subcutaneous, biofilm, slough Severity: Fat Layer Exposed Amount of bleeding with debridement: Mild Bleeding Controlled with: Compression and gauze Patient tolerated procedure: Patient tolerated procedure well Post-Debridement Measurements and Additional Note: Post-Debridement Measurements/Treatment - Nurse 1 - General Ulcer Assessment Start: 07/04/23 08:06 Freq: Status: Active Protocol: OLIVIA Activity Type Activity Date Activity User E-sign Co-sign Detail Recorded Client Recorded Date Recorded By Document 07/04/23 08:06 [facility] Desktop 07/04/23 08:10 [facility] 07/04/23 08:06 - Today's Visit Information Type of service Nurse-only Visit Arrival Mode Ambulatory,Cane Transfer Assistance None Patient Identification Verified (Name & Yes ) Patient Requires Transmission-Based No Precautions Height and Weight Body Mass Index (BMI) 31.4 BMI Classification Obese Vital Signs Temperature (97.8 F-99.1 F) 97 F L Temperature Source Temporal Pulse Rate (60-100) 86 Pulse Location Monitor Respiratory Rate (12-18) 16 Respiratory rate source Observation Oxygen Delivery Method Room Air Blood Pressure (90/60-120/80) 127/79 H Blood Pressure Mean (mm Hg) 95 Source Monitor Position Sitting Blood Pressure Location Left Arm History Since Last Visit- (Skip if this is Patient's initial visit) Have you changed medications since your No last visit? Any new allergies or adverse reactions No Had a fall/change in ADL's that may No increase risk of falls Signs or symptoms of abuse and/or No neglect since last visit Have you been in the hospital since your No last visit? Has dressing in place as prescribed Yes Has compression in place as prescribed Yes Has offloadiing in place as prescribed N/A Left Footwear Diabetic Shoe Right Footwear Diabetic Shoe Pain Scale: 0-10 Numeric Is Patient Pain Free? Yes - Nurse 1 - General Ulcer Measurement Start: 07/04/23 08:06 Freq: Status: Active Protocol: Activity Type Activity Date Activity User E-sign Co-sign Detail Recorded Client Recorded Date Recorded By Document 07/04/23 08:06 [facility] [employer] 07/04/23 08:10 [facility] 07/04/23 08:06 Wound Center Nurse 1 #9 LT ANKLE -Wound Comment(s) epifix intact Lower Limb Edema Present Yes Left Calf (cm) 38.2 Left Ankle (cm) 22.3 - Nurse 3 - General Ulcer D/C NN Start: 07/04/23 08:06 Freq: Status: Active Protocol: Activity Type Activity Date Activity User E-sign Co-sign Detail Recorded Client Recorded Date Recorded By Document 07/04/23 08:10 [facility] [employer] 07/04/23 08:11 [facility] 07/04/23 08:10 Wound Care Center Nurse 3 #9 LT ANKLE -Other Dressing epifix left intact -Primary Dressing Covered/Secured with Dry Gauze Left -Multi-Layered Wrap Application Multi-Layer Comp - Left ($) Treatment Response Procedure Tolerated Well Pain Scale: 0-10 Numeric Is Patient Pain Free? Yes WC - Visit Discharge Discharge Condition Stable Ambulatory Status Ambulatory,Cane Transportation Private Auto Accompanied by Assessment/Plan Assessment/Plan (1) Non-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: CODE(S): L97.322 - Non-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 (2) Delayed wound healing: CODE(S): T14.8XXD - Other injury of unspecified body region, subsequent encounter (3) 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 layer exposed: CODE(S): L97.222 - 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 layer exposed (4) Venous insufficiency of both lower extremities: CODE(S): I87.2 - Venous insufficiency (chronic) (peripheral) (5) Hyperlipidemia: CODE(S): E78.5 - Hyperlipidemia, unspecified QUALIFIERS: Hyperlipidemia type: unspecified Qualified Code(s): E78.5 - Hyperlipidemia, unspecified (6) DM type 2 (diabetes mellitus, type 2): CODE(S): E11.9 - Type 2 diabetes mellitus without complications QUALIFIERS: Diabetes mellitus mcc insulin use: with intermodal customer service use Diabetes mellitus complication status: with other specified complication Qualified Code(s): E11.69 - Type 2 diabetes mellitus with other specified complication; Z79.4 - watermaster (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 Patient had followed Dr. Anderson. Ulceration to the left anterior lower extremity remains healed. No signs of infection. Left lateral ankle measures 1.3 cm x 0.8 cm x 0.3 cm. Wound underwent debr idement as noted in clinical panel above. EpiFix graft #6 applied to wound bed at last visit. We will refrain from continued application of EpiFix graft at this time due to wound not progressing. Dakin's wet-to-dry dressing was applied today with Tubigrip compression stocking. They will change the dressing daily. Will look to reapply Epifix at next visit. Lateral ankle wound demonstrates no reduction in size vs previous visit. Unna boot applied at last visit as ankle motion may be contributing factor of tension on wound. He was instructed to not get dressings wet Discussed continued diabetic diet to ensure proper glucose control. Recent A1c 6.4%. Discussed that this is a good standing for control of his diabetes and will aid in wound healing. Discussed with to aid in daily foot checks as her is blind. Discussed wearing shoe gear at all times and to never go barefoot. Socks include barefoot. They voiced understanding of this today. Recommend continued follow-up with PCP for continued diabetic management. Discussed adequate protein intake to continue to aid in wound healing. Also discussed Negrito supplementation to aid in wound healing. Discussed signs and symptoms with the pertaining to infection. Discussed if she notices increasing redness about the wound margin spreading up the leg, any purulent drainage from the wound site, increasing foul odor from the wound, or if he experiences fever greater than 101 degree, nausea, vomiting, chills that these are signs of progressing infection and he needs to report to the ED. They voiced understanding of this today. The following work up and care recommendations were made: Dressing: EpiFix, Adaptic touch, Steri-Strips, Unna boot. Leave dressings intact and Do not get wet. Wash: Do not get wet Tissue growth optimization: EpiFix Offload: Ensure anterior leg is not bumped and discussed no picking at skin sites. Vascular: DP and PT pulses palpable with adequate capillary fill time. However skin demonstrates trophic changes consistent with microvascular disease. Edema: No edema currently, has history of chronic venous stasis. Recommend continued compression stocking. Infection: No signs of infection. Pain: May take [id number] Tylenol extra strength for discomfort. Host factors: DM type II, chronic venous stasis, CHF, COPD, blindness I answered all the patient's questions. To return to the wound healing center in 1 week or call sooner if the patient has any questions or concerns.
--- NOTE | 2023-07-17 08:12 | WC ---
07.11.23 LT LAT ANKLE
[2023-07-18 08:00] VITALS: BP 115/61; PULSE 92; RESP 18; TEMP 36.3; BMI 31.4
--- NOTE | 2023-07-18 08:17 | PN.PCM_ITS ---
History of Present Illness Date of Service: 07/18/23 Chief Complaint: Left Leg Ulcer History of Wound: Mr. Turcios is a 72-year-old with PMHx of of diabetes mellitus type 2, venous insufficiency bilateral lower extremity, history of multiple ulcerations, HTN, HLD, COPD, A-fib, CHF. He presents back to the wound care center today accompanied by his for nonhealing left lower extremity ulceration. states he has either bumped his leg on something or picked at some skin on the front of his leg creating a new wound. They state they have been following with Dr. Anderson in [place] as well as PCP Dr. Olguin. They state occasional use of mupirocin topical ointment but otherwise have not been applying dressings to the site. They state the wound has been present for a few weeks and has not made much progress and thus they were referred to the wound care center for continued wound healing. He denies N/V/F/chills. He has no further complaints. Subjective Subjective Patient is a 73-year-old male who follows up to the wound care center today for a left lower extremity ulceration. has been changing dressings daily with Dakin's and DSD. Wearing Tubigrip compression. She does state that he does not keep feet elevated as much as he should. He denies constitutional symptoms today. Denies further complaints today. Objective Data Objective Data Vital Signs: Vital Signs Temp Pulse Resp BP O2 Del Method 97.4 F L 92 18 115/61 Room Air 07/18/23 08:00 07/18/23 08:00 07/18/23 08:00 07/18/23 08:00 07/18/23 08:00 Oxygen Delivery Method Room Air Weight: 114.015 kg Body Mass Index (BMI) 31.4 Physical Exam Const alert, oriented x3 and no apparent distress General Appearance: cooperative HEENT normocephalic Eyes General Eye: normal appearance of both eyes Neck General: normal visual inspection Lymph Lymphatic: no lymphadenopathy noted and no lymphedema noted Resp normal respiratory effort Cardio regular rate and regular rhythm Extremity normal capillary refill, no joint enlargement, no calf tenderness and no pedal edema Extremity Narrative: DP pulses palpable and PT pulses weakly palpable bilateral. CFT less than 3 seconds to the digits bilateral. Hair growth absent to digits of foot bilateral. Dermatological: Skin is thin and demonstrating trophic changes bilateral lower extremity. Skin is excessively dry with peeling/flaking consistent with diabetic autonomic neuropathy and microvascular disease. Ulceration to the anterior aspect overlying the tibial crest has healed, no signs of infection. Ulceration noted to the lateral ankle with mixed fibrogranular layer. No signs of infection. Musculoskeletal: Muscle strength 5 of 5 age-appropriate. Decreased ankle range of motion in dorsiflexion with the knee extended without pain or crepitus bilateral. Decreased range of motion of the first metatarsophalangeal joint without pain or crepitus bilateral. There is hammertoe deformity of lesser digits bilateral without pain to palpation. Skin no rashes or lesions noted, skin turgor normal and no jaundice Neuro moves all extremities Debridement Note Debridement Note Wound debrided: Left lateral ankle Laterality: Left Wound Grade/Stage: Miguel stage I Type of Debridement: Excisional debridement Anesthesia Used: 5% Lidocaine Gel Depth: Down to and including healthy tissue and in the subcutaneous layer Percentage of wound debrided: 100 Instrument Used: 3mm curette Tissue Removed: Fibrous, devitalized subcutaneous, biofilm, slough Severity: Fat Layer Exposed Amount of bleeding with debridement: Mild Bleeding Controlled with: Compression and gauze Patient tolerated procedure: Patient tolerated procedure well Post-Debridement Measurements and Additional Note: Post-Debridement Measurements/Treatment - Nurse 1 - General Ulcer Assessment Start: 07/04/23 08:06 Freq: Status: Active Protocol: .LOWEXDean Activity Type Activity Date Activity User E-sign Co-sign Detail Recorded Client Recorded Date Recorded By Document 07/04/23 08:06 [facility] Desktop 07/04/23 08:10 [facility] Document 07/18/23 08:00 [employer] Desktop 07/18/23 08:06 KW 07/04/23 07/18/23 08:06 08:00 - Today's Visit Information Type of service Nurse-only Follow-up Visit Visit (Physician/COMPENSATION ADJUSTER ) Arrival Mode Ambulatory,Cane Ambulatory,Cane Transfer Assistance None Accompanied by Patient Identification Verified (Name & Yes Yes ) Patient Requires Transmission-Based No Precautions Height and Weight Body Mass Index (BMI) 31.4 31.4 BMI Classification Obese Obese Vital Signs Temperature (97.8 F-99.1 F) 97 F L 97.4 F L Temperature Source Temporal Temporal Pulse Rate (60-100) 86 92 Pulse Location Monitor Monitor Respiratory Rate (12-18) 16 18 Respiratory rate source Observation Observation Oxygen Delivery Method Room Air Room Air Blood Pressure (90/60-120/80) 127/79 H 115/61 Blood Pressure Mean (mm Hg) 95 79 Source Monitor Monitor Position Sitting Sitting Blood Pressure Location Left Arm Left Arm History Since Last Visit- (Skip if this is Patient's initial visit) Have you changed medications since your No No last visit? Any new allergies or adverse reactions No No Had a fall/change in ADL's that may No No increase risk of falls Signs or symptoms of abuse and/or No No neglect since last visit Have you been in the hospital since your No No last visit? Has dressing in place as prescribed Yes Yes Has compression in place as prescribed Yes Yes Has offloadiing in place as prescribed N/A N/A Experienced any changes in pain level or No management Left Footwear Diabetic Shoe Regular Shoe Right Footwear Diabetic Shoe Regular Shoe Pain Scale: 0-10 Numeric Is Patient Pain Free? Yes Yes WC - Nurse 1 - General Ulcer Measurement Start: 07/04/23 08:06 Freq: Status: Active Protocol: Activity Type Activity Date Activity User E-sign Co-sign Detail Recorded Client Recorded Date Recorded By Document 07/04/23 08:06 [employer] Desktop 07/04/23 08:10 [employer] Document 07/18/23 08:00 [employer] Desktop 07/18/23 08:06 KW 07/04/23 07/18/23 08:06 08:00 Wound Center Nurse 1 #9 LT ANKLE -Current Size (cm) - Length 1.3 -Current Size (cm) - Width 0.9 -Current Size (cm) - Depth 0.3 -Total Square Cm 1.17 -Date of Last Picture (Recall this 07/18/23 field) -Photo Taken Yes -Granulation Amt Large (67-100%) -Granulation Quality Mayo -Necrosis Amt Small (1-33%) -Necrotic Tissue Type Adherent Slough -Texture (Jada-wound Skin Appearance) Assessed -Moisture (Jada-wound Skin Appearance) Assessed -Color (Jada-wound Skin Appearance) Assessed -Temperature (Jada-wound Skin No Abnormality Appearance) (Pt Warm) -Ulcer Cleansing Rinsed/ Irrigated with Saline -Anesthetic Used 5% Lidocaine Gel -Wound Comment(s) epifix intact Lower Limb Edema Present Yes Left Calf (cm) 38.2 37.8 Left Ankle (cm) 22.3 21.7 - Nurse 2 - General Ulcer CM Notes Start: 07/04/23 08:06 Freq: Status: Active Protocol: Activity Type Activity Date Activity User E-sign Co-sign Detail Recorded Client Recorded Date Recorded By Document 07/11/23 08:51 PL Tablet 07/11/23 08:53 PL Document 07/11/23 11:55 PL [id number] 07/11/23 11:56 PL 07/11/23 07/11/23 08:51 11:55 Wound Center Nurse 2 #9 LT ANKLE -Time 08:40 08:40 -Correct Patient Yes Yes -Correct Side, Site, Position Yes Yes -Correct Procedure Yes Yes -Procedure Performed Yes Yes -Type of Procedure Debridement Debridement -Clinical Debridement Subcutaneous Subcutaneous -Tissue Removed Subcutaneous Subcutaneous -Post Debridement (cm) - Length 1.3 1.3 -Post Debridement (cm) - Width 0.8 0.8 -Post Debridement (cm) - Depth 0.3 0.3 -Total Square (Post) (cm) 1.04 1.04 -Area of Debridement (cm) - Length 1.3 1.3 -Area of Debridement (cm) - Width 0.8 0.8 -Total Square (Area) (cm) 1.04 1.04 -Tunneling No -Undermining/Tunneling No -Circular Undermining No -Wound/Ulcer Outcome Not Healed -Ulcer Cleansing Rinsed/ Irrigated with Saline -Foul Odor after Cleansing No -Bioengineered Tissue No -Bleeding Controlled with Pressure Pressure -Treatment Response Procedure Procedure Tolerated Well Tolerated Well -Debridement - Subq, 1st 20sq cm Yes Yes Pain Scale: 0-10 Numeric Is Patient Pain Free? Yes Yes - Nurse 3 - General Ulcer D/C NN Start: 07/04/23 08:06 Freq: Status: Active Protocol: Activity Type Activity Date Activity User E-sign Co-sign Detail Recorded Client Recorded Date Recorded By Document 07/04/23 08:10 [facility] Desktop 07/04/23 08:11 [facility] 07/04/23 08:10 Wound Care Center Nurse 3 #9 LT ANKLE -Other Dressing epifix left intact -Primary Dressing Covered/Secured with Dry Gauze Left -Multi-Layered Wrap Application Multi-Layer Comp - Left ($) Treatment Response Procedure Tolerated Well Pain Scale: 0-10 Numeric Is Patient Pain Free? Yes WC - Visit Discharge Discharge Condition Stable Ambulatory Status Ambulatory,Cane Transportation Private Auto Accompanied by Assessment/Plan Assessment/Plan (1) Non-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: CODE(S): L97.322 - Non-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 (2) Delayed wound healing: CODE(S): T14.8XXD - Other injury of unspecified body region, subsequent encounter (3) 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 layer exposed: CODE(S): L97.222 - 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 layer exposed (4) Venous insufficiency of both lower extremities: CODE(S): I87.2 - Venous insufficiency (chronic) (peripheral) (5) Hyperlipidemia: CODE(S): E78.5 - Hyperlipidemia, unspecified QUALIFIERS: Hyperlipidemia type: unspecified Qualified Code(s): E78.5 - Hyperlipidemia, unspecified (6) DM type 2 (diabetes mellitus, type 2): CODE(S): E11.9 - Type 2 diabetes mellitus without complications QUALIFIERS: Diabetes mellitus custodial insulin use: with custodial use Diabetes mellitus complication status: with other specified complication Qualified Code(s): E11.69 - Type 2 diabetes mellitus with other specified complication; Z79.4 - 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 Patient had followed Dr. Anderson. Ulceration to the left anterior lower extremity remains healed. No signs of infection. Left lateral ankle measures 1.2 cm x 0.8 cm x 0.3 cm. Wound underwent debridement as noted in clinical panel above. EpiFix graft #6 applied to wound bed 07/04/23. We will refrain from continued application of EpiFix graft at this time due to wound not progressing. Dakin's wet-to-dry dressing was applied today with Tubigrip compression stocking. They will change the dressing daily. Will look to reapply Epifix at next visit. Lateral ankle wound demonstrates no reduction in size vs previous visit. Unna boot applied at last visit as ankle motion may be contributing factor of tension on wound. He was instructed to not get dressings wet LEAS ordered due to delayed healing of the anterolateral ankle wound, awaiting results. Discussed continued diabetic diet to ensure proper glucose control. Recent A1c 6.4%. Discussed that this is a good standing for control of his diabetes and will aid in wound healing. Discussed with to aid in daily foot checks as her is blind. Discussed wearing shoe gear at all times and to never go barefoot. Socks include barefoot. They voiced understanding of this today. Recommend continued follow-up with PCP for continued diabetic management. Discussed adequate protein intake to continue to aid in wound healing. Also discussed Negrito supplementation to aid in wound healing. Discussed signs and symptoms with the pertaining to infection. Discussed if she notices increasing redness about the wound margin spreading up the leg, any purulent drainage from the wound site, increasing foul odor from the wound, or if he experiences fever greater than 101 degree, nausea, vomiting, chills that these are signs of progressing infection and he needs to report to the ED. They voiced understanding of this today. The following work up and care recommendations were made: Dressing: EpiFix, Adaptic touch, Steri-Strips, Unna boot. Leave dressings intact and Do not get wet. Wash: Do not get wet Tissue growth optimization: EpiFix Offload: Ensure anterior leg is not bumped and discussed no picking at skin sites. Vascular: DP and PT pulses palpable with adequate capillary fill time. However skin demonstrates trophic changes consistent with microvascular disease. Edema: No edema currently, has history of chronic venous stasis. Recommend continued compression stocking. Infection: No signs of infection. Pain: May take [id number] Tylenol extra strength for discomfort. Host factors: DM type II, chronic venous stasis, CHF, COPD, blindness I answered all the patient's questions. To return to the wound healing center in 1 week or call sooner if the patient has any questions or concerns.
--- NOTE | 2023-07-23 08:47 | ART_ITS ---
Reason For Study: Non pressure chronic ulcer Procedure A bilateral lower extremity continuous wave Doppler with analog waveform analysis,segmental pressures,and ankle brachial indexes without exercise. Left Segmental Pressures Left brachial= 113mmHg. Left posterior tibial artery = 143mmHg. Left dorsalis pedis artery = 138mmHg. Left digit = 109 mmHg. The left dorsalis pedis waveforms are triphasic. The left posterior tibial artery waveforms are triphasic. Right Segmental Pressures Right brachial= 112mmHg. Right posterior tibial artery = 139mmHg. Right dorsalis pedis artery = 145mmHg. Right digit = 121 mmHg. The right dorsalis pedis waveforms are triphasic. The right posterior tibial artery waveforms are triphasic. Indices The right ankle brachial index by the dorsalis pedis is 1.28. The right ankle brachial index by the posterior tibial artery is 1.23. The right digital-brachial index is 1.07. The left ankle brachial index by the dorsalis pedis is 1.22. The left ankle brachial index by the posterior tibial artery is 1.27. The left digital-brachial index is 0.96. VL/Lower Ext Art Exam w/o Exercis Interpretation Summary Triphasic Doppler waveforms are noted at ankle level bilaterally. Pulse-volume recordings appear satisfactory at all levels bilaterally. Resting ankle-brachial indices are norm al bilaterally. Digital-brachial indices are normal bilaterally. There is no evidence of significant arterial occlusive disease in the lower ext remities bilaterally. Ordering Physician: Sam Talbot Referring Physician: Raffaele Olguin MD Performed By: Ann Kirby RVT
[2023-07-25 08:09] VITALS: BP 125/68; PULSE 95; RESP 20; TEMP 36.2; BMI 31.4
--- NOTE | 2023-07-25 08:20 | PCM.WC.PN ---
History of Present Illness Date of Service: 07/25/23 Chief Complaint: Left Leg Ulcer History of Wound: Mr. Turcios is a 72-year-old with PMHx of of diabetes mellitus type 2, venous insufficiency bilateral lower extremity, history of multiple ulcerations, HTN, HLD, COPD, A-fib, CHF. He presents back to the wound care center today accompanied by his for nonhealing left lower extremity ulceration. states he has either bumped his leg on something or picked at some skin on the front of his leg creating a new wound. They state they have been following with Dr. Anderson in [place] as well as PCP Dr. Olguin. They state occasional use of mupirocin topical ointment but otherwise have not been applying dressings to the site. They state the wound has been present for a few weeks and has not made much progress and thus they were referred to the wound care center for continued wound healing. He denies N/V/F/chills. He has no further complaints. Subjective Subjective Patient is a 73-year-old male who follows up to the wound care center today for a left lower extremity ulceration. has been changing dressings daily with Dakin's and DSD. Wearing Tubigrip compression. She does state that he does not keep feet elevated as much as he should. He did obtain vascular studies. He denies constitutional symptoms today. Denies further complaints today. Objective Data Objective Data Vital Signs: Vital Signs Temp Pulse Resp BP O2 Del Method 97.1 F L 95 20 H 125/68 H Room Air 07/25/23 08:09 07/25/23 08:09 07/25/23 08:09 07/25/23 08:09 07/18/23 08:00 Oxygen Delivery Method Room Air Weight: 114.015 kg Body Mass Index (BMI) 31.4 Physical Exam Const alert, oriented x3 and no apparent distress General Appearance: cooperative HEENT normocephalic Eyes General Eye: normal appearance of both eyes Neck General: normal visual inspection Lymph Lymphatic: no lymphadenopathy noted and no lymphedema noted Resp normal respiratory effort Cardio regular rate and regular rhythm Extremity normal capillary refill, no joint enlargement, no calf tenderness and no pedal edema Extremity Narrative: DP pulses palpable and PT pulses weakly palpable bilateral. CFT less than 3 seconds to the digits bilateral. Hair growth absent to digits of foot bilateral. Dermatological: Skin is thin and demonstrating trophic changes bilateral lower extremity. Skin is excessively dry with peeling/flaking consistent with diabetic autonomic neuropathy and microvascular disease. Ulceration to the anterior aspect overlying the tibial crest has healed, no signs of infection. Ulceration noted to the lateral ankle with mixed fibrogranular layer. No signs of infection. Musculoskeletal: Muscle strength 5 of 5 age-appropriate. Decreased ankle range of motion in dorsiflexion with the knee extended without pain or crepitus bilateral. Decreased range of motion of the first metatarsophalangeal joint without pain or crepitus bilateral. There is hammertoe deformity of lesser digits bilateral without pain to palpation. Skin no rashes or lesions noted, skin turgor normal and no jaundice Neuro moves all extremities Debridement Note Debridement Note Wound debrided: Left lateral ankle Laterality: Left Wound Grade/Stage: Miguel stage I Type of Debridement: Excisional debridement Anesthesia Used: 5% Lidocaine Gel Depth: Down to and including healthy tissue and in the subcutaneous layer Percentage of wound debrided: 100 Instrument Used: 3mm curette Tissue Removed: Fibrous, devitalized subcutaneous, biofilm, slough Severity: Fat Layer Exposed Amount of bleeding with debridement: Mild Bleeding Controlled with: Compression and gauze Patient tolerated procedure: Patient tolerated procedure well Post-Debridement Measurements and Additional Note: Post-Debridement Measurements/Treatment - Nurse 1 - General Ulcer Assessment Start: 07/04/23 08:06 Freq: Status: Active Protocol: [email or web address] Activity Type Activity Date Activity User E-sign Co-sign Detail Recorded Client Recorded Date Recorded By Document 07/04/23 08:06 [facility] Desktop 07/04/23 08:10 [facility] Document 07/18/23 08:00 KW Desktop 07/18/23 08:06 KW Document 07/25/23 08:09 DL Desktop 07/25/23 08:15 DL 07/04/23 07/18/23 07/25/23 08:06 08:00 08:09 - Today's Visit Information Type of service Nurse-only Follow-up Visit Follow-up Visit Visit (Physician/TREE PLANTER (Physician/TREE PLANTER ) ) Arrival Mode Ambulatory,Cane Ambulatory,Cane Ambulatory,Cane Transfer Assistance None None Accompanied by Patient Identification Verified (Name & Yes Yes Yes ) Patient Requires Transmission-Based No No Precautions Height and Weight Body Mass Index (BMI) 31.4 31.4 31.4 BMI Classification Obese Obese Obese Vital Signs Temperature (97.8 F-99.1 F) 97 F L 97.4 F L 97.1 F L Temperature Source Temporal Temporal Temporal Pulse Rate (60-100) 86 92 95 Pulse Location Monitor Monitor Monitor Respiratory Rate (12-18) 16 18 20 H Respiratory rate source Observation Observation Observation Oxygen Delivery Method Room Air Room Air Blood Pressure (90/60-120/80) 127/79 H 115/61 125/68 H Blood Pressure Mean (mm Hg) 95 79 87 Source Monitor Monitor Monitor Position Sitting Sitting Blood Pressure Location Left Arm Left Arm History Since Last Visit- (Skip if this is Patient's initial visit) Have you changed medications since your No No No last visit? Any new allergies or adverse reactions No No No Had a fall/change in ADL's that may No No No increase risk of falls Signs or symptoms of abuse and/or No No No neglect since last visit Have you been in the hospital since your No No No last visit? Has dressing in place as prescribed Yes Yes Yes Has compression in place as prescribed Yes Yes Yes Has offloadiing in place as prescribed N/A N/A N/A Experienced any changes in pain level or No No management Left Footwear Diabetic Shoe Regular Shoe Right Footwear Diabetic Shoe Regular Shoe Pain Scale: 0-10 Numeric Is Patient Pain Free? Yes Yes Yes WC - Nurse 1 - General Ulcer Measurement Start: 07/04/23 08:06 Freq: Status: Active Protocol: Activity Type Activity Date Activity User E-sign Co-sign Detail Recorded Client Recorded Date Recorded By Document 07/04/23 08:06 [employer] Desktop 07/04/23 08:10 [facility] Document 07/18/23 08:00 KW Desktop 07/18/23 08:06 KW Document 07/25/23 08:09 DL Desktop 07/25/23 08:15 DL 07/04/23 07/18/23 07/25/23 08:06 08:00 08:09 Wound Center Nurse 1 #9 LT ANKLE -Current Size (cm) - Length 1.3 1.1 -Current Size (cm) - Width 0.9 0.9 -Current Size (cm) - Depth 0.3 0.2 -Total Square Cm 1.17 0.99 -Date of Last Picture (Recall this 07/18/23 field) -Photo Taken Yes -Exudate Amt Medium -Exudate Type Serosanguineous -Wound Margin Thickened & Rolled Under -Granulation Amt Large (67-100%) Large (67-100%) -Granulation Quality Long Neck Pale -Necrosis Amt Small (1-33%) None Present (0 %) -Necrotic Tissue Type Adherent Slough -Structure Exposed N/A -Texture (Jada-wound Skin Appearance) Assessed Scarring -Moisture (Jada-wound Skin Appearance) Assessed No Abnormality -Color (Jada-wound Skin Appearance) Assessed Hemosiderin Staining -Temperature (Jada-wound Skin No Abnormality No Abnormality Appearance) (Pt Warm) (Pt Warm) -Tenderness on Palpation (Jada-wound No Skin Appearance) -Ulcer Cleansing Rinsed/ Soap and Water Irrigated with Saline -Foul Odor after Cleansing No -Anesthetic Used 5% Lidocaine 5% Lidocaine Gel Gel -Wound Comment(s) epifix intact Lower Limb Edema Present Yes Left Calf (cm) 38.2 37.8 37.7 Left Ankle (cm) 22.3 21.7 25.2 WC - Nurse 2 - General Ulcer CM Notes Start: 07/04/23 08:06 Freq: Status: Active Protocol: Activity Type Activity Date Activity User E-sign Co-sign Detail Recorded Client Recorded Date Recorded By Document 07/11/23 08:51 PL Tablet 07/11/23 08:53 PL Document 07/11/23 11:55 PL [id number] 07/11/23 11:56 PL Document 07/18/23 08:37 PL Tablet 07/18/23 08:39 PL 07/11/23 07/11/23 07/18/23 08:51 11:55 08:37 Wound Center Nurse 2 #9 LT ANKLE -Time 08:40 08:40 08:25 -Correct Patient Yes Yes Yes -Correct Side, Site, Position Yes Yes Yes -Correct Procedure Yes Yes Yes -Procedure Performed Yes Yes Yes -Type of Procedure Debridement Debridement Debridement -Clinical Debridement Subcutaneous Subcutaneous Subcutaneous -Tissue Removed Subcutaneous Subcutaneous Subcutaneous -Post Debridement (cm) - Length 1.3 1.3 1.2 -Post Debridement (cm) - Width 0.8 0.8 0.8 -Post Debridement (cm) - Depth 0.3 0.3 0.3 -Total Square (Post) (cm) 1.04 1.04 0.96 -Area of Debridement (cm) - Length 1.3 1.3 1.2 -Area of Debridement (cm) - Width 0.8 0.8 0.8 -Total Square (Area) (cm) 1.04 1.04 0.96 -Tunneling No No -Undermining/Tunneling No No -Circular Undermining No No -Wound/Ulcer Outcome Not Healed Not Healed -Ulcer Cleansing Rinsed/ Rinsed/ Irrigated with Irrigated with Saline Saline -Foul Odor after Cleansing No No -Bioengineered Tissue No No -Bleeding Controlled with Pressure Pressure Pressure -Treatment Response Procedure Procedure Procedure Tolerated Well Tolerated Well Tolerated Well -Debridement - Subq, 1st 20sq cm Yes Yes Yes Pain Scale: 0-10 Numeric Is Patient Pain Free? Yes Yes Yes - Nurse 3 - General Ulcer D/C NN Start: 07/04/23 08:06 Freq: Status: Active Protocol: Activity Type Activity Date Activity User E-sign Co-sign Detail Recorded Client Recorded Date Recorded By Document 07/04/23 08:10 [employer] 07/04/23 08:11 [facility] Document 07/18/23 08:32 [facility] Desktop 07/18/23 08:37 KW 07/04/23 07/18/23 08:10 08:32 Wound Care Center Nurse 3 #9 LT ANKLE -Other Dressing epifix left intact -Primary Dressing Covered/Secured with Dry Gauze Dry Gauze & Roll Gauze, Secured with Tape Left -Multi-Layered Wrap Application Multi-Layer Comp - Left ($) Treatment Response Procedure Tolerated Well Pain Scale: 0-10 Numeric Is Patient Pain Free? Yes Yes - Visit Discharge Discharge Condition Stable Stable Ambulatory Status Ambulatory,Cane Ambulatory,Cane Transportation Private Auto Private Auto Accompanied by Medication Reconcilliation completed & No provided to patient/care provider Clinical Summary of Care Provided Yes Assessment/Plan Assessment/Plan (1) Non-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: CODE(S): L97.322 - Non-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 (2) Delayed wound healing: CODE(S): T14.8XXD - Other injury of unspecified body region, subsequent encounter (3) 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 layer exposed: CODE(S): L97.222 - 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 layer exposed (4) Venous insufficiency of both lower extremities: CODE(S): I87.2 - Venous insufficiency (chronic) (peripheral) (5) Hyperlipidemia: CODE(S): E78.5 - Hyperlipidemia, unspecified QUALIFIERS: Hyperlipidemia type: unspecified Qualified Code(s): E78.5 - Hyperlipidemia, unspecified (6) DM type 2 (diabetes mellitus, type 2): CODE(S): E11.9 - Type 2 diabetes mellitus without complications QUALIFIERS: Diabetes mellitus complication status: with other specified complication Diabetes mellitus termite exterminator insulin use: with termite exterminator use Qualified Code(s): E11.69 - Type 2 diabetes mellitus with other specified complication; Z79.4 - long-term (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 Patient had followed Dr. Anderson. Ulceration to the left anterior lower extremity remains healed. No signs of infection. Left lateral ankle measures 1.4 cm x 1.0 cm x 0.3 cm. Wound underwent debridement as noted in clinical panel above. EpiFix graft #7 applied to wound bed. Site dressed with Adaptic touch and anchored with Steri-Strips. Dry sterile dressing applied with Unna boot compression over site. He was instructed to not get the lower extremity/dressings wet. Lateral ankle wound demonstrates no reduction in size vs previous visit and is slightly increased in size. Unna boot applied at last visit as ankle motion may be contributing factor of tension on wound. He was instructed to not get dressings wet LEAS ordered due to delayed healing of the anterolateral ankle wound and performed 07/23/2023. LEAS demonstrates triphasic Doppler waveforms at ankle level bilaterally with PVR satisfactory at all levels bilaterally. Resting FERMÍN indices normal bilateral. Digital brachial indices normal bilateral. No evidence of significant arterial occlusive disease of lower extremities. Discussed continued diabetic diet to ensure proper glucose control. Recent A1c 6.4%. Discussed that this is a good standing for control of his diabetes and will aid in wound healing. Discussed with to aid in daily foot checks as her is blind. Discussed wearing shoe gear at all times and to never go barefoot. Socks include barefoot. They voiced understanding of this today. Recommend continued follow-up with PCP for continued diabetic management. Discussed adequate protein intake to continue to aid in wound healing. Also discussed Negrito supplementation to aid in wound healing. Discussed signs and symptoms with the pertaining to infection. Discussed if she notices increasing redness about the wound margin spreading up the leg, any purulent drainage from the wound site, increasing foul odor from the wound, or if he experiences fever greater than 101 degree, nausea, vomiting, chills that these are signs of progressing infection and he needs to report to the ED. They voiced understanding of this today. The following work up and care recommendations were made: Dressing: EpiFix, Adaptic touch, Steri-Strips, Unna boot. Leave dressings intact and Do not get wet. Wash: Do not get wet Tissue growth optimization: EpiFix Offload: Ensure anterior leg is not bumped and discussed no picking at skin sites. Vascular: DP and PT pulses palpable with adequate capillary fill time. However skin demonstrates trophic changes consistent with microvascular disease. Edema: No edema currently, has history of chronic venous stasis. Recommend continued compression stocking. Infection: No signs of infection. Pain: May take [id number] Tylenol extra strength for discomfort. Host factors: DM type II, chronic venous stasis, CHF, COPD, blindness I answered all the patient's questions. To return to the wound healing center in 1 week or call sooner if the patient has any questions or concerns.
[2023-08-01 08:00] VITALS: BP 141/76; PULSE 86; RESP 20; TEMP 35.8; BMI 31.4
--- NOTE | 2023-08-01 08:31 | PCM.WC.PN ---
History of Present Illness Date of Service: 08/01/23 Chief Complaint: Left Leg Ulcer History of Wound: Mr. Turcios is a 72-year-old with PMHx of of diabetes mellitus type 2, venous insufficiency bilateral lower extremity, history of multiple ulcerations, HTN, HLD, COPD, A-fib, CHF. He presents back to the wound care center today accompanied by his for nonhealing left lower extremity ulceration. states he has either bumped his leg on something or picked at some skin on the front of his leg creating a new wound. They state they have been following with Dr. Anderson in [place] as well as PCP Dr. Olguin. They state occasional use of mupirocin topical ointment but otherwise have not been applying dressings to the site. They state the wound has been present for a few weeks and has not made much progress and thus they were referred to the wound care center for continued wound healing. He denies N/V/F/chills. He has no further complaints. Subjective Subjective Patient is a 73-year-old male who follows up to the wound care center today for a left lower extremity ulceration. He is accompanied by daughter today due to fracturing her ankle. He has kept graft in place to wound site and has kept dressings clean, dry, intact. He does not keep feet elevated as much as he should according to statements by . He denies constitutional symptoms today. Denies further complaints today. Objective Data Objective Data Vital Signs: Vital Signs Temp Pulse Resp BP O2 Del Method 96.5 F L 86 20 H 141/76 H Room Air 08/01/23 08:00 08/01/23 08:00 08/01/23 08:00 08/01/23 08:00 07/18/23 08:00 Oxygen Delivery Method Room Air Weight: 114.015 kg Body Mass Index (BMI) 31.4 Physical Exam Const alert, oriented x3 and no apparent distress General Appearance: cooperative HEENT normocephalic Eyes General Eye: normal appearance of both eyes Neck General: normal visual inspection Lymph Lymphatic: no lymphadenopathy noted and no lymphedema noted Resp normal respiratory effort Cardio regular rate and regular rhythm Extremity normal capillary refill, no joint enlargement, no calf tenderness and no pedal edema Extremity Narrative: DP pulses palpable and PT pulses weakly palpable bilateral. CFT less than 3 seconds to the digits bilateral. Hair growth absent to digits of foot bilateral. Dermatological: Skin is thin and demonstrating trophic changes bilateral lower extremity. Skin is excessively dry with peeling/flaking consistent with diabetic autonomic neuropathy and microvascular disease. Ulceration to the anterior aspect overlying the tibial crest remains healed, no signs of infection. Ulceration noted to the lateral ankle with mixed fibrogranular layer. No signs of infection. Musculoskeletal: Muscle strength 5 of 5 age-appropriate. Decreased ankle range of motion in dorsiflexion with the knee extended without pain or crepitus bilateral. Decreased range of motion of the first metatarsophalangeal joint without pain or crepitus bilateral. There is hammertoe deformity of lesser digits bilateral without pain to palpation. Skin no rashes or lesions noted, skin turgor normal and no jaundice Neuro moves all extremities Debridement Note Debridement Note Wound debrided: Left lateral ankle Laterality: Left Wound Grade/Stage: Miguel stage I Type of Debridement: Excisional debridement Anesthesia Used: 5% Lidocaine Gel Depth: Down to and including healthy tissue and in the subcutaneous layer Percentage of wound debrided: 100 Instrument Used: 5mm curette Tissue Removed: Fibrous, devitalized subcutaneous, biofilm, slough Severity: Fat Layer Exposed Amount of bleeding with debridement: Mild Bleeding Controlled with: Compression and gauze Patient tolerated procedure: Patient tolerated procedure well Post-Debridement Measurements and Additional Note: Post-Debridement Measurements/Treatment - Nurse 1 - General Ulcer Assessment Start: 07/04/23 08:06 Freq: Status: Active Protocol: LOWEXDean Activity Type Activity Date Activity User E-sign Co-sign Detail Recorded Client Recorded Date Recorded By Document 07/04/23 08:06 F Desktop 07/04/23 08:10 BMF Document 07/18/23 08:00 KW Desktop 07/18/23 08:06 KW Document 07/25/23 08:09 DL Desktop 07/25/23 08:15 DL Document 08/01/23 08:00 DL Desktop 08/01/23 08:07 DL 07/04/23 07/18/23 07/25/23 08:06 08:00 08:09 - Today's Visit Information Type of service Nurse-only Follow-up Visit Follow-up Visit Visit (Physician/NASCAR DRIVER (Physician/NASCAR DRIVER ) ) Arrival Mode Ambulatory,Cane Ambulatory,Cane Ambulatory,Cane Transfer Assistance None None Accompanied by Patient Identification Verified (Name & Yes Yes Yes ) Patient Requires Transmission-Based No No Precautions Height and Weight Body Mass Index (BMI) 31.4 31.4 31.4 BMI Classification Obese Obese Obese Vital Signs Temperature (97.8 F-99.1 F) 97 F L 97.4 F L 97.1 F L Temperature Source Temporal Temporal Temporal Pulse Rate (60-100) 86 92 95 Pulse Location Monitor Monitor Monitor Respiratory Rate (12-18) 16 18 20 H Respiratory rate source Observation Observation Observation Oxygen Delivery Method Room Air Room Air Blood Pressure (90/60-120/80) 127/79 H 115/61 125/68 H Blood Pressure Mean (mm Hg) 95 79 87 Source Monitor Monitor Monitor Position Sitting Sitting Blood Pressure Location Left Arm Left Arm History Since Last Visit- (Skip if this is Patient's initial visit) Have you changed medications since your No No No last visit? Any new allergies or adverse reactions No No No Had a fall/change in ADL's that may No No No increase risk of falls Signs or symptoms of abuse and/or No No No neglect since last visit Have you been in the hospital since your No No No last visit? Has dressing in place as prescribed Yes Yes Yes Has compression in place as prescribed Yes Yes Yes Has offloadiing in place as prescribed N/A N/A N/A Experienced any changes in pain level or No No management Left Footwear Diabetic Shoe Regular Shoe Right Footwear Diabetic Shoe Regular Shoe Pain Scale: 0-10 Numeric Is Patient Pain Free? Yes Yes Yes 08/01/23 08:00 - Today's Visit Information Type of service Follow-up Visit (Physician/NASCAR DRIVER ) Arrival Mode Ambulatory Transfer Assistance None Accompanied by Patient Identification Verified (Name & Yes ) Patient Requires Transmission-Based No Precautions Height and Weight Body Mass Index (BMI) 31.4 BMI Classification Obese Vital Signs Temperature (97.8 F-99.1 F) 96.5 F L Temperature Source Temporal Pulse Rate (60-100) 86 Pulse Location Monitor Respiratory Rate (12-18) 20 H Respiratory rate source Observation Oxygen Delivery Method Blood Pressure (90/60-120/80) 141/76 H Blood Pressure Mean (mm Hg) 97 Source Monitor Position Blood Pressure Location History Since Last Visit- (Skip if this is Patient's initial visit) Have you changed medications since your No last visit? Any new allergies or adverse reactions No Had a fall/change in ADL's that may No increase risk of falls Signs or symptoms of abuse and/or No neglect since last visit Have you been in the hospital since your No last visit? Has dressing in place as prescribed Yes Has compression in place as prescribed Yes Has offloadiing in place as prescribed N/A Experienced any changes in pain level or No management Left Footwear Right Footwear Pain Scale: 0-10 Numeric Is Patient Pain Free? Yes WC - Nurse 1 - General Ulcer Measurement Start: 07/04/23 08:06 Freq: Status: Active Protocol: Activity Type Activity Date Activity User E-sign Co-sign Detail Recorded Client Recorded Date Recorded By Document 07/04/23 08:06 BMF Desktop 07/04/23 08:10 BMF Document 07/18/23 08:00 KW Desktop 07/18/23 08:06 KW Document 07/25/23 08:09 DL Desktop 07/25/23 08:15 DL Document 08/01/23 08:00 DL Desktop 08/01/23 08:07 DL 07/04/23 07/18/23 07/25/23 08:06 08:00 08:09 Wound Center Nurse 1 #9 LT ANKLE -Current Size (cm) - Length 1.3 1.1 -Current Size (cm) - Width 0.9 0.9 -Current Size (cm) - Depth 0.3 0.2 -Total Square Cm 1.17 0.99 -Date of Last Picture (Recall this 07/18/23 field) -Photo Taken Yes -Exudate Amt Medium -Exudate Type Serosanguineous -Wound Margin Thickened & Rolled Under -Granulation Amt Large (67-100%) Large (67-100%) -Granulation Quality Spangle Pale -Necrosis Amt Small (1-33%) None Present (0 %) -Necrotic Tissue Type Adherent Slough -Structure Exposed N/A -Texture (Jada-wound Skin Appearance) Assessed Scarring -Moisture (Jada-wound Skin Appearance) Assessed No Abnormality -Color (Jada-wound Skin Appearance) Assessed Hemosiderin Staining -Temperature (Jada-wound Skin No Abnormality No Abnormality Appearance) (Pt Warm) (Pt Warm) -Tenderness on Palpation (Jada-wound No Skin Appearance) -Ulcer Cleansing Rinsed/ Soap and Water Irrigated with Saline -Foul Odor after Cleansing No -Anesthetic Used 5% Lidocaine 5% Lidocaine Gel Gel -Wound Comment(s) epifix intact Lower Limb Edema Present Yes Right Calf (cm) Right Ankle (cm) Left Calf (cm) 38.2 37.8 37.7 Left Ankle (cm) 22.3 21.7 25.2 08/01/23 08:00 Wound Center Nurse 1 #9 LT ANKLE -Current Size (cm) - Length 1.5 -Current Size (cm) - Width 0.9 -Current Size (cm) - Depth 0.1 -Total Square Cm 1.35 -Date of Last Picture (Recall this field) -Photo Taken -Exudate Amt None Present -Exudate Type -Wound Margin Thickened -Granulation Amt None Present (0 %) -Granulation Quality -Necrosis Amt -Necrotic Tissue Type Eschar -Structure Exposed N/A -Texture (Jada-wound Skin Appearance) Scarring -Moisture (Jada-wound Skin Appearance) No Abnormality -Color (Jada-wound Skin Appearance) No Abnormality -Temperature (Jada-wound Skin No Abnormality Appearance) (Pt Warm) -Tenderness on Palpation (Jada-wound No Skin Appearance) -Ulcer Cleansing Soap and Water -Foul Odor after Cleansing No -Anesthetic Used 5% Lidocaine Gel -Wound Comment(s) Lower Limb Edema Present Right Calf (cm) 36.3 Right Ankle (cm) 21.8 Left Calf (cm) Left Ankle (cm) WC - Nurse 2 - General Ulcer CM Notes Start: 07/04/23 08:06 Freq: Status: Active Protocol: Activity Type Activity Date Activity User E-sign Co-sign Detail Recorded Client Recorded Date Recorded By Document 07/11/23 08:51 PL Tablet 07/11/23 08:53 PL Document 07/11/23 11:55 PL [id number] 07/11/23 11:56 PL Document 07/18/23 08:37 PL Tablet 07/18/23 08:39 PL Document 07/25/23 12:04 PL [id number] 07/25/23 12:06 PL 07/11/23 07/11/23 07/18/23 08:51 11:55 08:37 Wound Center Nurse 2 #9 LT ANKLE -Time 08:40 08:40 08:25 -Correct Patient Yes Yes Yes -Correct Side, Site, Position Yes Yes Yes -Correct Procedure Yes Yes Yes -Procedure Performed Yes Yes Yes -Type of Procedure Debridement Debridement Debridement -Clinical Debridement Subcutaneous Subcutaneous Subcutaneous -Tissue Removed Subcutaneous Subcutaneous Subcutaneous -Post Debridement (cm) - Length 1.3 1.3 1.2 -Post Debridement (cm) - Width 0.8 0.8 0.8 -Post Debridement (cm) - Depth 0.3 0.3 0.3 -Total Square (Post) (cm) 1.04 1.04 0.96 -Area of Debridement (cm) - Length 1.3 1.3 1.2 -Area of Debridement (cm) - Width 0.8 0.8 0.8 -Total Square (Area) (cm) 1.04 1.04 0.96 -Tunneling No No -Undermining/Tunneling No No -Circular Undermining No No -Wound/Ulcer Outcome Not Healed Not Healed -Ulcer Cleansing Rinsed/ Rinsed/ Irrigated with Irrigated with Saline Saline -Foul Odor after Cleansing No No -Bioengineered Tissue No No -Type of Bioengineered Tissue -Expiration Date -Product Lot Number -Percent Used -Bleeding Controlled with Pressure Pressure Pressure -Treatment Response Procedure Procedure Procedure Tolerated Well Tolerated Well Tolerated Well -Debridement - Subq, 1st 20sq cm Yes Yes Yes -Apply Skin Sub - 1st 25 sq cm - Legs -Epifix 18mm Disc Pain Scale: 0-10 Numeric Is Patient Pain Free? Yes Yes Yes 07/25/23 12:04 Wound Center Nurse 2 #9 LT ANKLE -Time 08:30 -Correct Patient Yes -Correct Side, Site, Position Yes -Correct Procedure Yes -Procedure Performed Yes -Type of Procedure Debridement -Clinical Debridement Subcutaneous -Tissue Removed Subcutaneous -Post Debridement (cm) - Length 1.4 -Post Debridement (cm) - Width 1.0 -Post Debridement (cm) - Depth 0.1 -Total Square (Post) (cm) 1.40 -Area of Debridement (cm) - Length 1.4 -Area of Debridement (cm) - Width 1.0 -Total Square (Area) (cm) 1.40 -Tunneling No -Undermining/Tunneling No -Circular Undermining No -Wound/Ulcer Outcome Not Healed -Ulcer Cleansing Rinsed/ Irrigated with Saline -Foul Odor after Cleansing No -Bioengineered Tissue Yes -Type of Bioengineered Tissue Epifix 18mm Disc -Expiration Date 03/03/28 -Product Lot Number [id number] -Percent Used 100 -Bleeding Controlled with Pressure -Treatment Response Procedure Tolerated Well -Debridement - Subq, 1st 20sq cm No -Apply Skin Sub - 1st 25 sq cm - Legs 1 -Epifix 18mm Disc 3 Pain Scale: 0-10 Numeric Is Patient Pain Free? Yes - Nurse 3 - General Ulcer D/C NN Start: 07/04/23 08:06 Freq: Status: Active Protocol: Activity Type Activity Date Activity User E-sign Co-sign Detail Recorded Client Recorded Date Recorded By Document 07/04/23 08:10 BMF Desktop 07/04/23 08:11 BMF Document 07/18/23 08:32 KW Desktop 07/18/23 08:37 KW Document 07/25/23 08:41 KW Desktop 07/25/23 08:42 KW 07/04/23 07/18/23 07/25/23 08:10 08:32 08:41 Wound Care Center Nurse 3 #9 LT ANKLE -Other Dressing epifix left intact -Primary Dressing Covered/Secured with Dry Gauze Dry Gauze & Dry Gauze Roll Gauze, Secured with Tape Left -Multi-Layered Wrap Application Multi-Layer Unna Boot - Comp - Left ($) Left ($) Treatment Response Procedure Tolerated Well Pain Scale: 0-10 Numeric Is Patient Pain Free? Yes Yes Yes - Visit Discharge Discharge Condition Stable Stable Stable Ambulatory Status Ambulatory,Cane Ambulatory,Cane Ambulatory,Cane Transportation Private Auto Private Auto Accompanied by Medication Reconcilliation completed & No No provided to patient/care provider Clinical Summary of Care Provided Yes Yes Assessment/Plan Assessment/Plan (1) Non-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: CODE(S): L97.322 - Non-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 (2) Delayed wound healing: CODE(S): T14.8XXD - Other injury of unspecified body region, subsequent encounter (3) 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 layer exposed: CODE(S): L97.222 - 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 layer exposed (4) Venous insufficiency of both lower extremities: CODE(S): I87.2 - Venous insufficiency (chronic) (peripheral) (5) Hyperlipidemia: CODE(S): E78.5 - Hyperlipidemia, unspecified QUALIFIERS: Hyperlipidemia type: unspecified Qualified Code(s): E78.5 - Hyperlipidemia, unspecified (6) DM type 2 (diabetes mellitus, type 2): CODE(S): E11.9 - Type 2 diabetes mellitus without complications QUALIFIERS: Diabetes mellitus complication status: with other specified complication 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 Patient had followed Dr. Anderson. Ulceration to the left anterior lower extremity remains healed. No signs of infection. Left lateral ankle measures 1.2 cm x 0.9 cm x 0.2 cm. Wound underwent debridement as noted in clinical panel above. EpiFix graft #8 applied to wound bed. Site dressed with Adaptic touch and anchored with Steri-Strips. Dry sterile dressing applied with Unna boot compression over site. He was instructed to not get the lower extremity/dressings wet. Lateral ankle wound demonstrates slight reduction in size vs previous visit. Unna boot applied as ankle motion may be contributing factor of tension on wound. He was instructed to not get dressings wet LEAS ordered due to delayed healing of the anterolateral ankle wound and performed 07/23/2023. LEAS demonstrates triphasic Doppler waveforms at ankle level bilaterally with PVR satisfactory at all levels bilaterally. Resting FERMÍN indices normal bilateral. Digital brachial indices normal bilateral. No evidence of significant arterial occlusive disease of lower extremities. Discussed continued diabetic diet to ensure proper glucose control. Recent A1c 6.4%. Discussed that this is a good standing for control of his diabetes and will aid in wound healing. Discussed with to aid in daily foot checks as her is blind. Discussed wearing shoe gear at all times and to never go barefoot. Socks include barefoot. They voiced understanding of this today. Recommend continued follow-up with PCP for continued diabetic management. Discussed adequate protein intake to continue to aid in wound healing. Also discussed Negrito supplementation to aid in wound healing. Discussed signs and symptoms with the pertaining to infection. Discussed if she notices increasing redness about the wound margin spreading up the leg, any purulent drainage from the wound site, increasing foul odor from the wound, or if he experiences fever greater than 101 degree, nausea, vomiting, chills that these are signs of progressing infection and he needs to report to the ED. They voiced understanding of this today. The following work up and care recommendations were made: Dressing: EpiFix, Adaptic touch, Steri-Strips, Unna boot. Leave dressings intact and Do not get wet. Wash: Do not get wet Tissue growth optimization: EpiFix Offload: Ensure anterior leg is not bumped and discussed no picking at skin sites. Vascular: DP and PT pulses palpable with adequate capillary fill time. However skin demonstrates trophic changes consistent with microvascular disease. Edema: No edema currently, has history of chronic venous stasis. Recommend continued compression stocking. Infection: No signs of infection. Pain: May take [id number] Tylenol extra strength for discomfort. Host factors: DM type II, chronic venous stasis, CHF, COPD, blindness I answered all the patient's questions. To return to the wound healing center in 1 week or call sooner if the patient has any questions or concerns.
== END 2023-08-01 23:59 | disposition home or self-care (01) ==
LOC: WC 08:00
PROVIDERS: PCP Family Medicine; Referring Provider Family Medicine; Visit Provider Student in an Organized Health Care Education/Training Program
DX: E11.622 Type 2 diabetes mellitus with other skin ulcer (principal); L97.322 Non-pressure 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 layer exposed; I11.0 Hypertensive heart disease with heart failure; I50.32 Chronic diastolic (congestive) heart failure; J44.9 Chronic obstructive pulmonary disease, unspecified; I48.91 Unspecified atrial fibrillation; E11.59 Type 2 diabetes mellitus with other circulatory complications; E78.5 Hyperlipidemia, unspecified; I87.2 Venous insufficiency (chronic) (peripheral)
CPT/HCPCS: 11042; 15271; 29580; 29581; 93923; Q4186

== ENCOUNTER 2023-08-29 08:00 | Outpatient (RCR) | payer MEDICARE, OTHER, SELFPAY ==
[2023-08-02 00:27] VITALS: BP 141/76; PULSE 86; RESP 20; TEMP 35.8; BMI 31.4
[2023-08-08 08:05] VITALS: BP 131/96; PULSE 93; RESP 18; TEMP 35.8; BMI 31.4
--- NOTE | 2023-08-08 08:31 | PCM.WC.PN ---
History of Present Illness Date of Service: 08/08/23 Chief Complaint: Left Leg Ulcer History of Wound: Mr. Turcios is a 72-year-old with PMHx of of diabetes mellitus type 2, venous insufficiency bilateral lower extremity, history of multiple ulcerations, HTN, HLD, COPD, A-fib, CHF. He presents back to the wound care center today accompanied by his for nonhealing left lower extremity ulceration. states he has either bumped his leg on something or picked at some skin on the front of his leg creating a new wound. They state they have been following with Dr. Anderson in [place] as well as PCP Dr. Olguin. They state occasional use of mupirocin topical ointment but otherwise have not been applying dressings to the site. They state the wound has been present for a few weeks and has not made much progress and thus they were referred to the wound care center for continued wound healing. He denies N/V/F/chills. He has no further complaints. Subjective Subjective Patient is a 73-year-old male who follows up to the wound care center today for a left lower extremity ulceration. He is accompanied by daughter today due to fracturing her ankle. He has kept graft in place to wound site and has kept dressings clean, dry, intact. He does not keep feet elevated as much as he should according to statements by . He denies constitutional symptoms today. Denies further complaints today. Objective Data Objective Data Vital Signs: Vital Signs Temp Pulse Resp BP O2 Del Method 96.5 F L 93 18 131/96 H Room Air 08/08/23 08:05 08/08/23 08:05 08/08/23 08:05 08/08/23 08:05 08/08/23 08:05 Oxygen Delivery Method Room Air Weight: 114.015 kg Body Mass Index (BMI) 31.4 Physical Exam Const alert, oriented x3 and no apparent distress General Appearance: cooperative HEENT normocephalic Eyes General Eye: normal appearance of both eyes Neck General: normal visual inspection Lymph Lymphatic: no lymphadenopathy noted and no lymphedema noted Resp normal respiratory effort Cardio regular rate and regular rhythm Extremity normal capillary refill, no joint enlargement, no calf tenderness and no pedal edema Extremity Narrative: DP pulses palpable and PT pulses weakly palpable bilateral. CFT less than 3 seconds to the digits bilateral. Hair growth absent to digits of foot bilateral. Dermatological: Skin is thin and demonstrating trophic changes bilateral lower extremity. Skin is excessively dry with peeling/flaking consistent with diabetic autonomic neuropathy and microvascular disease. Ulceration to the anterior aspect overlying the tibial crest remains healed, no signs of infection. Ulceration noted to the lateral ankle with mixed fibrogranular layer. No signs of infection. Musculoskeletal: Muscle strength 5 of 5 age-appropriate. Decreased ankle range of motion in dorsiflexion with the knee extended without pain or crepitus bilateral. Decreased range of motion of the first metatarsophalangeal joint without pain or crepitus bilateral. There is hammertoe deformity of lesser digits bilateral without pain to palpation. Skin no rashes or lesions noted, skin turgor normal and no jaundice Neuro moves all extremities Debridement Note Debridement Note Wound debrided: Left lateral ankle Laterality: Left Wound Grade/Stage: Miguel stage I Type of Debridement: Excisional debridement Anesthesia Used: 5% Lidocaine Gel Depth: Down to and including healthy tissue and in the subcutaneous layer Percentage of wound debrided: 100 Instrument Used: 5mm curette Tissue Removed: Fibrous, devitalized subcutaneous, biofilm, slough Severity: Fat Layer Exposed Amount of bleeding with debridement: Mild Bleeding Controlled with: Compression and gauze Patient tolerated procedure: Patient tolerated procedure well Post-Debridement Measurements and Additional Note: Post-Debridement Measurements/Treatment - Nurse 1 - General Ulcer Assessment Start: 08/08/23 08:05 Freq: Status: Active Protocol: [email or web address] Activity Type Activity Date Activity User E-sign Co-sign Detail Recorded Client Recorded Date Recorded By Document 08/08/23 08:05 Desktop 08/08/23 08:15 DL 08/08/23 08:05 - Today's Visit Information Type of service Follow-up Visit (Physician/HYDRAULIC CONTROLS TECHNICIAN ) Arrival Mode Ambulatory,Cane Transfer Assist (Other) granddaughter Patient Identification Verified (Name & Yes ) Height and Weight Body Mass Index (BMI) 31.4 BMI Classification Obese Vital Signs Temperature (97.8 F-99.1 F) 96.5 F L Temperature Source Temporal Pulse Rate (60-100) 93 Pulse Location Monitor Respiratory Rate (12-18) 18 Respiratory rate source Observation Oxygen Delivery Method Room Air Blood Pressure (90/60-120/80) 131/96 H Blood Pressure Mean (mm Hg) 107 Source Monitor Position Semi-Fowlers Blood Pressure Location Left Forearm History Since Last Visit- (Skip if this is Patient's initial visit) Have you changed medications since your No last visit? Any new allergies or adverse reactions No Had a fall/change in ADL's that may No increase risk of falls Signs or symptoms of abuse and/or No neglect since last visit Have you been in the hospital since your No last visit? Has dressing in place as prescribed Yes Has compression in place as prescribed Yes Has offloadiing in place as prescribed N/A Experienced any changes in pain level or No management Left Footwear Regular Shoe Right Footwear Regular Shoe Pain Scale: 0-10 Numeric Is Patient Pain Free? Yes WC - Nurse 1 - General Ulcer Measurement Start: 08/08/23 08:05 Freq: Status: Active Protocol: Activity Type Activity Date Activity User E-sign Co-sign Detail Recorded Client Recorded Date Recorded By Document 08/08/23 08:05 DL Desktop 08/08/23 08:15 DL 08/08/23 08:05 Wound Center Nurse 1 #9 LT ANKLE -Current Size (cm) - Length 1.3 -Current Size (cm) - Width 0.1 -Total Square Cm 0.13 -Exudate Amt None Present -Exudate Type Serosanguineous -Wound Margin Distinct, Outline Attached -Necrosis Amt None Present (0 %) -Structure Exposed N/A -Texture (Jada-wound Skin Appearance) Scarring -Moisture (Jada-wound Skin Appearance) Dry/Scaly -Color (Jada-wound Skin Appearance) Hemosiderin Staining -Temperature (Jada-wound Skin No Abnormality Appearance) (Pt Warm) -Tenderness on Palpation (Jada-wound No Skin Appearance) -Ulcer Cleansing Soap and Water -Foul Odor after Cleansing No -Anesthetic Used 5% Lidocaine Gel Left Calf (cm) 37.3 Left Ankle (cm) 22 Assessment/Plan Assessment/Plan (1) Non-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: CODE(S): L97.322 - Non-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 (2) Delayed wound healing: CODE(S): T14.8XXD - Other injury of unspecified body region, subsequent encounter (3) 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 layer exposed: CODE(S): L97.222 - 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 layer exposed (4) Venous insufficiency of both lower extremities: CODE(S): I87.2 - Venous insufficiency (chronic) (peripheral) (5) Essential (primary) hypertension: CODE(S): I10 - Essential (primary) hypertension (6) DM type 2 (diabetes mellitus, type 2): CODE(S): E11.9 - Type 2 diabetes mellitus without complications QUALIFIERS: Diabetes mellitus extermination inspector insulin use: with extermination inspector use Diabetes mellitus complication status: with other specified complication Qualified Code(s): E11.69 - Type 2 diabetes mellitus with other specified complication; Z79.4 - [facility]CI (current) use of insulin (7) COPD (chronic obstructive pulmonary disease): CODE(S): J44.9 - Chronic obstructive pulmonary disease, unspecified (8) Hyperlipidemia: CODE(S): E78.5 - Hyperlipidemia, unspecified QUALIFIERS: Hyperlipidemia type: unspecified Qualified Code(s): E78.5 - Hyperlipidemia, unspecified (9) Chronic diastolic (congestive) heart failure: CODE(S): I50.32 - Chronic diastolic (congestive) heart failure PLAN: Plan Patient seen and evaluated I reviewed his previous treatment history by PCP. Patient had followed Dr. Anderson. Ulceration to the left anterior lower extremity remains healed. No signs of infection. Left lateral ankle measures 1.2 cm x 0.8 cm x 0.2 cm. Wound underwent debridement as noted in clinical panel above. EpiFix graft #9 applied to wound bed. Site dressed with Adaptic touch and anchored with Steri-Strips. Dry sterile dressing applied with Unna boot compression over site. He was instructed to not get the lower extremity/dressings wet. Lateral ankle wound demonstrates slight reduction in size vs previous visit. Unna boot applied as ankle motion may be contributing factor of tension on wound. He was instructed to not get dressings wet LEAS ordered due to delayed healing of the anterolateral ankle wound and performed 07/23/2023. LEAS demonstrates triphasic Doppler waveforms at ankle level bilaterally with PVR satisfactory at all levels bilaterally. Resting FERMÍN indices normal bilateral. Digital brachial indices normal bilateral. No evidence of significant arterial occlusive disease of lower extremities. Discussed continued diabetic diet to ensure proper glucose control. Recent A1c 6.4%. Discussed that this is a good standing for control of his diabetes and will aid in wound healing. Discussed with to aid in daily foot checks as her is blind. Discussed wearing shoe gear at all times and to never go barefoot. Socks include barefoot. They voiced understanding of this today. Recommend continued follow-up with PCP for continued diabetic management. Discussed adequate protein intake to continue to aid in wound healing. Also discussed Negrito supplementation to aid in wound healing. Discussed signs and symptoms with the pertaining to infection. Discussed if she notices increasing redness about the wound margin spreading up the leg, any purulent drainage from the wound site, increasing foul odor from the wound, or if he experiences fever greater than 101 degree, nausea, vomiting, chills that these are signs of progressing infection and he needs to report to the ED. They voiced understanding of this today. The following work up and care recommendations were made: Dressing: EpiFix, Adaptic touch, Steri-Strips, Unna boot. Leave dressings intact and Do not get wet. Wash: Do not get wet Tissue growth optimization: EpiFix Offload: Ensure anterior leg is not bumped and discussed no picking at skin sites. Vascular: DP and PT pulses palpable with adequate capillary fill time. However skin demonstrates trophic changes consistent with microvascular disease. Edema: No edema currently, has history of chronic venous stasis. Recommend continued compression stocking. Infection: No signs of infection. Pain: May take [id number] Tylenol extra strength for discomfort. Host factors: DM type II, chronic venous stasis, CHF, COPD, blindness I answered all the patient's questions. To return to the wound healing center in 2 weeks or call sooner if the patient has any questions or concerns.
[2023-08-15 08:12] VITALS: BP 108/67; PULSE 100; RESP 18; TEMP 36.6
[2023-08-22 08:07] VITALS: BP 130/71; PULSE 73; RESP 18; TEMP 36.3; BMI 31.4
--- NOTE | 2023-08-22 08:23 | PCM.WC.PN ---
History of Present Illness Date of Service: 08/22/23 Chief Complaint: Left Leg Ulcer History of Wound: Mr. Turcios is a 72-year-old with PMHx of of diabetes mellitus type 2, venous insufficiency bilateral lower extremity, history of multiple ulcerations, HTN, HLD, COPD, A-fib, CHF. He presents back to the wound care center today accompanied by his for nonhealing left lower extremity ulceration. states he has either bumped his leg on something or picked at some skin on the front of his leg creating a new wound. They state they have been following with Dr. Anderson in [place] as well as PCP Dr. Olguin. They state occasional use of mupirocin topical ointment but otherwise have not been applying dressings to the site. They state the wound has been present for a few weeks and has not made much progress and thus they were referred to the wound care center for continued wound healing. He denies N/V/F/chills. He has no further complaints. Subjective Subjective Patient is a 73-year-old male who follows up to the wound care center today for a left lower extremity ulceration. He is accompanied by friend of family today due to and daughter both fracturing their ankles. He has kept graft in place to wound site and has kept dressings clean, dry, intact. He does not keep feet elevated as much as he should according to statements by . He denies constitutional symptoms today. Denies further complaints today. Objective Data Objective Data Vital Signs: Vital Signs Temp Pulse Resp BP O2 Del Method 97.4 F L 73 18 130/71 H Room Air 08/22/23 08:07 08/22/23 08:07 08/22/23 08:07 08/22/23 08:07 08/22/23 08:07 Oxygen Delivery Method Room Air Weight: 114.015 kg Body Mass Index (BMI) 31.4 Physical Exam Const alert, oriented x3 and no apparent distress General Appearance: cooperative HEENT normocephalic Eyes General Eye: normal appearance of both eyes Neck General: normal visual inspection Lymph Lymphatic: no lymphadenopathy noted and no lymphedema noted Resp normal respiratory effort Cardio regular rate and regular rhythm Extremity normal capillary refill, no joint enlargement, no calf tenderness and no pedal edema Extremity Narrative: DP pulses palpable and PT pulses weakly palpable bilateral. CFT less than 3 seconds to the digits bilateral. Hair growth absent to digits of foot bilateral. Dermatological: Skin is thin and demonstrating trophic changes bilateral lower extremity. Skin is excessively dry with peeling/flaking consistent with diabetic autonomic neuropathy and microvascular disease. Ulceration to the anterior aspect overlying the tibial crest remains healed, no signs of infection. Ulceration noted to the lateral ankle with mixed fibrogranular layer. No signs of infection. Musculoskeletal: Muscle strength 5 of 5 age-appropriate. Decreased ankle range of motion in dorsiflexion with the knee extended without pain or crepitus bilateral. Decreased range of motion of the first metatarsophalangeal joint without pain or crepitus bilateral. There is hammertoe deformity of lesser digits bilateral without pain to palpation. Skin no rashes or lesions noted, skin turgor normal and no jaundice Neuro moves all extremities Debridement Note Debridement Note Wound debrided: Left lateral ankle Laterality: Left Wound Grade/Stage: Miguel stage I Type of Debridement: Excisional debridement Anesthesia Used: 5% Lidocaine Gel Depth: Down to and including healthy tissue and in the subcutaneous layer Percentage of wound debrided: 100 Instrument Used: 5mm curette Tissue Removed: Fibrous, devitalized subcutaneous, biofilm, slough Severity: Fat Layer Exposed Amount of bleeding with debridement: Mild Bleeding Controlled with: Compression and gauze Patient tolerated procedure: Patient tolerated procedure well Post-Debridement Measurements and Additional Note: Post-Debridement Measurements/Treatment - Nurse 1 - General Ulcer Assessment Start: 08/08/23 08:05 Freq: Status: Active Protocol: [email or web address] Activity Type Activity Date Activity User E-sign Co-sign Detail Recorded Client Recorded Date Recorded By Document 08/08/23 08:05 DL Desktop 08/08/23 08:15 DL Document 08/22/23 08:07 Desktop 08/22/23 08:18 08/08/23 08/22/23 08:05 08:07 - Today's Visit Information Type of service Follow-up Visit Follow-up Visit (Physician/DENTAL SALES REPRESENTATIVE (Physician/DENTAL SALES REPRESENTATIVE ) ) Arrival Mode Ambulatory,Cane Ambulatory Transfer Assistance None Transfer Assist (Other) granddaughter Accompanied by daughter in law Patient Identification Verified (Name & Yes Yes ) Patient Requires Transmission-Based No Precautions Height and Weight Body Mass Index (BMI) 31.4 31.4 BMI Classification Obese Obese Vital Signs Temperature (97.8 F-99.1 F) 96.5 F L 97.4 F L Temperature Source Temporal Temporal Pulse Rate (60-100) 93 73 Pulse Location Monitor Monitor Respiratory Rate (12-18) 18 18 Respiratory rate source Observation Observation Oxygen Delivery Method Room Air Room Air Blood Pressure (90/60-120/80) 131/96 H 130/71 H Blood Pressure Mean (mm Hg) 107 90 Source Monitor Monitor Position Semi-Fowlers Sitting Blood Pressure Location Left Forearm Left Arm History Since Last Visit- (Skip if this is Patient's initial visit) Have you changed medications since your No No last visit? Any new allergies or adverse reactions No No Had a fall/change in ADL's that may No No increase risk of falls Signs or symptoms of abuse and/or No No neglect since last visit Have you been in the hospital since your No No last visit? Has dressing in place as prescribed Yes Yes Has compression in place as prescribed Yes Yes Has offloadiing in place as prescribed N/A N/A Experienced any changes in pain level or No No management Left Footwear Regular Shoe Diabetic Shoe Right Footwear Regular Shoe Diabetic Shoe Pain Scale: 0-10 Numeric Is Patient Pain Free? Yes Yes WC - Nurse 1 - General Ulcer Measurement Start: 08/08/23 08:05 Freq: Status: Active Protocol: Activity Type Activity Date Activity User E-sign Co-sign Detail Recorded Client Recorded Date Recorded By Document 08/08/23 08:05 DL Desktop 08/08/23 08:15 DL Document 08/22/23 08:07 GM Desktop 08/22/23 08:18 08/08/23 08/22/23 08:05 08:07 Wound Center Nurse 1 #9 LT ANKLE -Current Size (cm) - Length 1.3 1.5 -Current Size (cm) - Width 0.1 1 -Current Size (cm) - Depth 0.1 -Total Square Cm 0.13 1.5 -Photo Taken No -Epithelialization Small 1-33% -Tunneling No -Undermining/Tunneling No -Circular Undermining No -Exudate Amt None Present None Present -Exudate Type Serosanguineous -Wound Margin Distinct, Outline Attached -Necrosis Amt None Present (0 %) -Structure Exposed N/A -Texture (Jada-wound Skin Appearance) Scarring Assessed -Moisture (Jada-wound Skin Appearance) Dry/Scaly Assessed -Color (Jada-wound Skin Appearance) Hemosiderin Assessed Staining -Temperature (Jada-wound Skin No Abnormality No Abnormality Appearance) (Pt Warm) (Pt Warm) -Tenderness on Palpation (Jada-wound No No Skin Appearance) -Ulcer Cleansing Soap and Water Soap and Water -Foul Odor after Cleansing No No -Anesthetic Used 5% Lidocaine 5% Lidocaine Gel Gel -Wound Comment(s) wound had epifix/veil on, are appears to have a dark scab Left Calf (cm) 37.3 37 Left Ankle (cm) 22 22 WC - Nurse 2 - General Ulcer CM Notes Start: 08/08/23 08:05 Freq: Status: Active Protocol: Activity Type Activity Date Activity User E-sign Co-sign Detail Recorded Client Recorded Date Recorded By Document 08/08/23 08:38 [facility] Desktop 08/08/23 08:46 [facility] 08/08/23 08:38 Wound Center Nurse 2 #9 LT ANKLE -Time 08:39 -Correct Patient Yes -Correct Side, Site, Position Yes -Correct Procedure Yes -Procedure Performed Yes -Type of Procedure Debridement -Clinical Debridement Subcutaneous -Tissue Removed Subcutaneous -Post Debridement (cm) - Length 1.2 -Post Debridement (cm) - Width 0.8 -Post Debridement (cm) - Depth 0.1 -Total Square (Post) (cm) 0.96 -Area of Debridement (cm) - Length 1.2 -Area of Debridement (cm) - Width 0.8 -Total Square (Area) (cm) 0.96 -Tunneling No -Undermining/Tunneling No -Circular Undermining No -Wound/Ulcer Outcome Not Healed -Ulcer Cleansing Rinsed/ Irrigated with Saline -Foul Odor after Cleansing No -Bioengineered Tissue Yes -Type of Bioengineered Tissue Epifix 18mm Disc -Expiration Date 04/03/28 -Product Lot Number [id number] -Percent Used 100 -Lot number of Saline Used [id number] -Bleeding Controlled with Pressure -Treatment Response Procedure Tolerated Well -Debridement - Subq, 1st 20sq cm No -Apply Skin Sub - 1st 25 sq cm - Legs 1 -Epifix 18mm Disc 3 Pain Scale: 0-10 Numeric Is Patient Pain Free? Yes Pain Scale: Adult NonVerbal Is Patient Pain Free? Yes WC - Nurse 3 - General Ulcer D/C NN Start: 08/08/23 08:05 Freq: Status: Active Protocol: Activity Type Activity Date Activity User E-sign Co-sign Detail Recorded Client Recorded Date Recorded By Document 08/08/23 08:59 DL Desktop 08/08/23 08:59 DL Edit Result 08/08/23 08:59 DL (1) [id number] 08/12/23 15:12 BMF Document 08/15/23 08:12 MT Desktop 08/15/23 08:32 MT (1) Right - Multi-Layered Wrap Application Unna Boot - Right => Unna Boot - Left ( ($) => $) 08/08/23 08/15/23 08:59 08:12 Wound Care Center Nurse 3 #9 LT ANKLE -Ulcer Cleansing Soap and Water -Foul Odor after Cleansing No No -Negative Pressure Wound Therapy N/A -Other Dressing Epifix -Primary Dressing Covered/Secured with Dry Gauze Dry Gauze & Roll Gauze, Secured with Tape Left -Multi-Layered Wrap Application Unna Boot - Left ($) Right -Multi-Layered Wrap Application Unna Boot - Left ($) Vital Signs Temperature (97.8 F-99.1 F) 98 F Temperature Source Temporal Pulse Rate (60-100) 100 Pulse Location Monitor Respiratory Rate (12-18) 18 Respiratory rate source Observation Oxygen Delivery Method Room Air Blood Pressure (90/60-120/80) 108/67 Blood Pressure Mean (mm Hg) 80 Source Monitor Position Sitting Blood Pressure Location Left Arm Pain Scale: 0-10 Numeric Is Patient Pain Free? Yes Yes WC - Visit Discharge Discharge Condition Stable Stable Ambulatory Status Ambulatory,Cane Cane,Unsteady Transportation Private Auto Private Auto Accompanied by daughter Medication Reconcilliation completed & No provided to patient/care provider Clinical Summary of Care Provided Yes Notes: nurse visit, sourav lucas reapplied skin sub left on. skin sub was clean dry and intact Facility Type Home Health Orders Sent Yes Assessment/Plan Assessment/Plan (1) Non-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: CODE(S): L97.322 - Non-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 (2) Delayed wound healing: CODE(S): T14.8XXD - Other injury of unspecified body region, subsequent encounter (3) 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 layer exposed: CODE(S): L97.222 - 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 layer exposed (4) Venous insufficiency of both lower extremities: CODE(S): I87.2 - Venous insufficiency (chronic) (peripheral) (5) Essential (primary) hypertension: CODE(S): I10 - Essential (primary) hypertension (6) DM type 2 (diabetes mellitus, type 2): CODE(S): E11.9 - Type 2 diabetes mellitus without complications QUALIFIERS: Diabetes mellitus complication status: with other specified complication Diabetes mellitus [employer] insulin use: with alf use Qualified Code(s): E11.69 - Type 2 diabetes mellitus with other specified complication; Z79.4 - penitentiary (current) use of insulin (7) COPD (chronic obstructive pulmonary disease): CODE(S): J44.9 - Chronic obstructive pulmonary disease, unspecified (8) Hyperlipidemia: CODE(S): E78.5 - Hyperlipidemia, unspecified QUALIFIERS: Hyperlipidemia type: unspecified Qualified Code(s): E78.5 - Hyperlipidemia, unspecified (9) Chronic diastolic (congestive) heart failure: CODE(S): I50.32 - Chronic diastolic (congestive) heart failure PLAN: Plan Patient seen and evaluated I reviewed his previous treatment history by PCP. Patient had followed Dr. Anderson. Ulceration to the left anterior lower extremity remains healed. No signs of infection. Left lateral ankle measures 1.3 cm x 0.8 cm x 0.2 cm. Wound underwent debridement as noted in clinical panel above. EpiFix graft #10 applied to wound bed. Site dressed with Adaptic touch and anchored with Steri-Strips. Dry sterile dressing applied with Unna boot compression over site. He was instructed to not get the lower extremity/dressings wet. Lateral ankle wound demonstrates no change in size vs previous visit. Unna boot continued to be applied as ankle motion may be contributing factor of tension on wound. He was instructed to not get dressings wet LEAS ordered due to delayed healing of the anterolateral ankle wound and performed 07/23/2023. LEAS demonstrates triphasic Doppler waveforms at ankle level bilaterally with PVR satisfactory at all levels bilaterally. Resting FERMÍN indices normal bilateral. Digital brachial indices normal bilateral. No evidence of significant arterial occlusive disease of lower extremities. Discussed continued diabetic diet to ensure proper glucose control. Recent A1c 6.4%. Discussed that this is a good standing for control of his diabetes and will aid in wound healing. Discussed with to aid in daily foot checks as her is blind. Discussed wearing shoe gear at all times and to never go barefoot. Socks include barefoot. They voiced understanding of this today. Recommend continued follow-up with PCP for continued diabetic management. Discussed adequate protein intake to continue to aid in wound healing. Also discussed Negrito supplementation to aid in wound healing. Discussed signs and symptoms with the pertaining to infection. Discussed if she notices increasing redness about the wound margin spreading up the leg, any purulent drainage from the wound site, increasing foul odor from the wound, or if he experiences fever greater than 101 degree, nausea, vomiting, chills that these are signs of progressing infection and he needs to report to the ED. They voiced understanding of this today. The following work up and care recommendations were made: Dressing: EpiFix, Adaptic touch, Steri-Strips, Unna boot. Leave dressings intact and Do not get wet. Wash: Do not get wet Tissue growth optimization: EpiFix Offload: Ensure anterior leg is not bumped and discussed no picking at skin sites. Vascular: DP and PT pulses palpable with adequate capillary fill time. However skin demonstrates trophic changes consistent with microvascular disease. Edema: No edema currently, has history of chronic venous stasis. Recommend continued compression stocking. Infection: No signs of infection. Pain: May take [id number] Tylenol extra strength for discomfort. Host factors: DM type II, chronic venous stasis, CHF, COPD, blindness I answered all the patient's questions. To return to the wound healing center in 2 weeks or call sooner if the patient has any questions or concerns.
[2023-08-29 08:06] VITALS: BP 108/79; PULSE 74; RESP 20; TEMP 36.4; BMI 31.4
== END 2023-09-01 23:59 | disposition home or self-care (01) ==
LOC: WC 08:00
PROVIDERS: PCP Family Medicine; Referring Provider Family Medicine; Visit Provider Student in an Organized Health Care Education/Training Program
DX: E11.622 Type 2 diabetes mellitus with other skin ulcer (principal); L97.322 Non-pressure 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 layer exposed; L97.222 Non-pressure chronic ulcer of left calf with fat layer exposed; I11.0 Hypertensive heart disease with heart failure; I50.32 Chronic diastolic (congestive) heart failure; J44.9 Chronic obstructive pulmonary disease, unspecified; E11.59 Type 2 diabetes mellitus with other circulatory complications; Z79.4 Long term (current) use of insulin; E78.5 Hyperlipidemia, unspecified; I87.2 Venous insufficiency (chronic) (peripheral)
CPT/HCPCS: 15271; 29580; Q4186

== ENCOUNTER 2023-09-19 08:15 | Outpatient (RCR) | payer MEDICARE, OTHER, SELFPAY ==
[2023-09-02 00:22] VITALS: BP 108/79; PULSE 74; RESP 20; TEMP 36.4; BMI 31.4
[2023-09-05 08:12] VITALS: BP 113/62; PULSE 94; RESP 16; TEMP 36.1; BMI 31.4
--- NOTE | 2023-09-05 08:29 | PCM.WC.PN ---
History of Present Illness Date of Service: 09/05/23 Chief Complaint: Left Leg Ulcer History of Wound: Mr. Turcios is a 72-year-old with PMHx of of diabetes mellitus type 2, venous insufficiency bilateral lower extremity, history of multiple ulcerations, HTN, HLD, COPD, A-fib, CHF. He presents back to the wound care center today accompanied by his for nonhealing left lower extremity ulceration. states he has either bumped his leg on something or picked at some skin on the front of his leg creating a new wound. They state they have been following with Dr. Anderson in [place] as well as PCP Dr. Olguin. They state occasional use of mupirocin topical ointment but otherwise have not been applying dressings to the site. They state the wound has been present for a few weeks and has not made much progress and thus they were referred to the wound care center for continued wound healing. He denies N/V/F/chills. He has no further complaints. Subjective Subjective Patient is a 73-year-old male who follows up to the wound care center today for a left lower extremity ulceration. He is accompanied by [id number] today due to and daughter both fracturing their ankles. He has kept graft in place to wound site and has kept dressings clean, dry, intact. He has presented for Unna boot dressing changes with nursing. He does not keep feet elevated as much as he should according to previous statements by . He denies constitutional symptoms today. Denies further complaints today. Objective Data Objective Data Vital Signs: Vital Signs Temp Pulse Resp BP O2 Del Method 97.0 F L 94 16 113/62 Room Air 09/05/23 08:12 09/05/23 08:12 09/05/23 08:12 09/05/23 08:12 09/05/23 08:12 Oxygen Delivery Method Room Air Weight: 114.015 kg Body Mass Index (BMI) 31.4 Physical Exam Const alert, oriented x3 and no apparent distress General Appearance: cooperative HEENT normocephalic Eyes General Eye: normal appearance of both eyes Neck General: normal visual inspection Lymph Lymphatic: no lymphadenopathy noted and no lymphedema noted Resp normal respiratory effort Cardio regular rate and regular rhythm Extremity normal capillary refill, no joint enlargement, no calf tenderness and no pedal edema Extremity Narrative: DP pulses palpable and PT pulses weakly palpable bilateral. CFT less than 3 seconds to the digits bilateral. Hair growth absent to digits of foot bilateral. Dermatological: Skin is thin and demonstrating trophic changes bilateral lower extremity. Skin is excessively dry with peeling/flaking consistent with diabetic autonomic neuropathy and microvascular disease. Ulceration to the anterior aspect overlying the tibial crest remains healed, no signs of infection. Ulceration noted to the lateral ankle with mixed fibrogranular layer. No signs of infection. Musculoskeletal: Muscle strength 5 of 5 age-appropriate. Decreased ankle range of motion in dorsiflexion with the knee extended without pain or crepitus bilateral. Decreased range of motion of the first metatarsophalangeal joint without pain or crepitus bilateral. There is hammertoe deformity of lesser digits bilateral without pain to palpation. Skin no rashes or lesions noted, skin turgor normal and no jaundice Neuro moves all extremities Debridement Note Debridement Note Wound debrided: Left lateral ankle Laterality: Left Wound Grade/Stage: Miguel stage I Type of Debridement: Excisional debridement Anesthesia Used: 5% Lidocaine Gel Depth: Down to and including healthy tissue and in the subcutaneous layer Percentage of wound debrided: 100 Instrument Used: 5mm curette Tissue Removed: Fibrous, devitalized subcutaneous, biofilm, slough Severity: Fat Layer Exposed Amount of bleeding with debridement: Mild Bleeding Controlled with: Compression and gauze Patient tolerated procedure: Patient tolerated procedure well Post-Debridement Measurements and Additional Note: Post-Debridement Measurements/Treatment - Nurse 1 - General Ulcer Assessment Start: 09/05/23 08:12 Freq: Status: Active Protocol: [email or web address] Activity Type Activity Date Activity User E-sign Co-sign Detail Recorded Client Recorded Date Recorded By Document 09/05/23 08:12 DC Desktop 09/05/23 08:23 DC 09/05/23 08:12 - Today's Visit Information Type of service Follow-up Visit (Physician/[employer] ) Arrival Mode Ambulatory Accompanied by daughter in law Patient Identification Verified (Name & Yes ) Safety Precautions Fall Prevention Height and Weight Body Mass Index (BMI) 31.4 BMI Classification Obese Vital Signs Temperature (97.8 F-99.1 F) 97.0 F L Temperature Source Temporal Pulse Rate (60-100) 94 Pulse Location Monitor Respiratory Rate (12-18) 16 Respiratory rate source Observation Oxygen Delivery Method Room Air Blood Pressure (90/60-120/80) 113/62 Blood Pressure Mean (mm Hg) 79 Source Monitor Position Sitting Blood Pressure Location Right Arm Pain Scale: 0-10 Numeric Is Patient Pain Free? Yes WC - Nurse 1 - General Ulcer Measurement Start: 09/05/23 08:12 Freq: Status: Active Protocol: Activity Type Activity Date Activity User E-sign Co-sign Detail Recorded Client Recorded Date Recorded By Document 09/05/23 08:12 DC Desktop 09/05/23 08:23 DC 09/05/23 08:12 Wound Center Nurse 1 #9 LT ANKLE -Current Size (cm) - Length 1 -Current Size (cm) - Width 0.8 -Current Size (cm) - Depth 0.2 -Total Square Cm 0.8 Assessment/Plan Assessment/Plan (1) Non-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: CODE(S): L97.322 - Non-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 (2) Delayed wound healing: CODE(S): T14.8XXD - Other injury of unspecified body region, subsequent encounter (3) Venous insufficiency of both lower extremities: CODE(S): I87.2 - Venous insufficiency (chronic) (peripheral) (4) COPD (chronic obstructive pulmonary disease): CODE(S): J44.9 - Chronic obstructive pulmonary disease, unspecified (5) Hyperlipidemia: CODE(S): E78.5 - Hyperlipidemia, unspecified QUALIFIERS: Hyperlipidemia type: unspecified Qualified Code(s): E78.5 - Hyperlipidemia, unspecified (6) Chronic diastolic (congestive) heart failure: CODE(S): I50.32 - Chronic diastolic (congestive) heart failure (7) Longstanding persistent atrial fibrillation: CODE(S): I48.11 - Longstanding persistent atrial fibrillation (8) DM type 2 (diabetes mellitus, type 2): CODE(S): E11.9 - Type 2 diabetes mellitus without complications QUALIFIERS: Diabetes mellitus complication status: with other specified complication Diabetes mellitus assisted insulin use: with terminal system operator use Qualified Code(s): E11.69 - Type 2 diabetes mellitus with other specified complication; Z79.4 - assisted (current) use of insulin PLAN: Plan Patient seen and evaluated I reviewed his previous treatment history by PCP. Patient had followed Dr. Anderson. Ulceration to the left anterior lower extremity remains healed. No signs of infection. Left lateral ankle measures 0.6 cm x 0.4 cm x 0.1 cm. Wound underwent debridement as noted in clinical panel above. He has finished all 10 applications of EpiFix graft. Dakin's wet-to-dry dressing applied with Unna boot compression over site. He was instructed to not get the lower extremity/dressings wet. Lateral ankle wound demonstrates good reduction in size vs previous visit. Unna boot continued to be applied as ankle motion may be contributing factor of tension on wound. He was instructed to not get dressings wet LEAS ordered due to delayed healing of the anterolateral ankle wound and performed 07/23/2023. LEAS demonstrates triphasic Doppler waveforms at ankle level bilaterally with PVR satisfactory at all levels bilaterally. Resting FERMÍN indices normal bilateral. Digital brachial indices normal bilateral. No evidence of significant arterial occlusive disease of lower extremities. Discussed continued diabetic diet to ensure proper glucose control. Recent A1c 6.4%. Discussed that this is a good standing for control of his diabetes and will aid in wound healing. Discussed with to aid in daily foot checks as her is blind. Discussed wearing shoe gear at all times and to never go barefoot. Socks include barefoot. They voiced understanding of this today. Recommend continued follow-up with PCP for continued diabetic management. Discussed adequate protein intake to continue to aid in wound healing. Also discussed Negrito supplementation to aid in wound healing. Discussed signs and symptoms with the pertaining to infection. Discussed if she notices increasing redness about the wound margin spreading up the leg, any purulent drainage from the wound site, increasing foul odor from the wound, or if he experiences fever greater than 101 degree, nausea, vomiting, chills that these are signs of progressing infection and he needs to report to the ED. They voiced understanding of this today. The following work up and care recommendations were made: Dressing: Dakin's, dry sterile dressing, Unna boot. Leave dressings intact and Do not get wet. Wash: Do not get wet Tissue growth optimization: Dakin's Offload: Ensure anterior leg is not bumped and discussed no picking at skin sites. Vascular: DP and PT pulses palpable with adequate capillary fill time. However skin demonstrates trophic changes consistent with microvascular disease. Edema: No edema currently, has history of chronic venous stasis. Recommend continued compression stocking. Infection: No signs of infection. Pain: May take [id number] Tylenol extra strength for discomfort. Host factors: DM type II, chronic venous stasis, CHF, COPD, blindness I answered all the patient's questions. To return to the wound healing center in 2 weeks or call sooner if the patient has any questions or concerns.
[2023-09-10 11:41] VITALS: BP 141/87; PULSE 88; RESP 18; TEMP 35.8; BMI 31.4
[2023-09-19 08:00] VITALS: BP 125/86; PULSE 94; RESP 18; TEMP 37.1; BMI 31.4
--- NOTE | 2023-09-19 10:20 | PCM.WC.PN ---
History of Present Illness Date of Service: 09/19/23 Chief Complaint: Left Leg Ulcer History of Wound: Mr. Turcios is a 72-year-old with PMHx of of diabetes mellitus type 2, venous insufficiency bilateral lower extremity, history of multiple ulcerations, HTN, HLD, COPD, A-fib, CHF. He presents back to the wound care center today accompanied by his for nonhealing left lower extremity ulceration. states he has either bumped his leg on something or picked at some skin on the front of his leg creating a new wound. They state they have been following with Dr. Anderson in [place] as well as PCP Dr. Olguin. They state occasional use of mupirocin topical ointment but otherwise have not been applying dressings to the site. They state the wound has been present for a few weeks and has not made much progress and thus they were referred to the wound care center for continued wound healing. He denies N/V/F/chills. He has no further complaints. Subjective Subjective Patient is a 73-year-old male who follows up to the wound care center today for a left lower extremity ulceration. He is accompanied by oorshyoj-kn-klt today. Lkukxpkr-yv-gbb is aiding in daily dressing changes. He does not keep feet elevated as much as he should according to previous statements by and epggfjlb-jh-[id number]. Ybpplcbf-xp-mxm states she is seeing improvement in the wound. He denies constitutional symptoms today. Denies further complaints today. Objective Data Objective Data Vital Signs: Vital Signs Temp Pulse Resp BP O2 Del Method 98.7 F 94 18 125/86 H Room Air 09/19/23 08:00 09/19/23 08:00 09/19/23 08:00 09/19/23 08:00 09/05/23 08:12 Oxygen Delivery Method Room Air Weight: 114.015 kg Body Mass Index (BMI) 31.4 Physical Exam Const alert, oriented x3 and no apparent distress General Appearance: cooperative HEENT normocephalic Eyes General Eye: normal appearance of both eyes Neck General: normal visual inspection Lymph Lymphatic: no lymphadenopathy noted and no lymphedema noted Resp normal respiratory effort Cardio regular rate and regular rhythm Extremity normal capillary refill, no joint enlargement, no calf tenderness and no pedal edema Extremity Narrative: DP pulses palpable and PT pulses weakly palpable bilateral. CFT less than 3 seconds to the digits bilateral. Hair growth absent to digits of foot bilateral. Dermatological: Skin is thin and demonstrating trophic changes bilateral lower extremity. Skin is excessively dry with peeling/flaking consistent with diabetic autonomic neuropathy and microvascular disease. Ulceration to the anterior aspect overlying the tibial crest remains healed, no signs of infection. Ulceration noted to the lateral ankle with mixed fibrogranular layer. No signs of infection. Musculoskeletal: Muscle strength 5 of 5 age-appropriate. Decreased ankle range of motion in dorsiflexion with the knee extended without pain or crepitus bilateral. Decreased range of motion of the first metatarsophalangeal joint without pain or crepitus bilateral. There is hammertoe deformity of lesser digits bilateral without pain to palpation. Skin no rashes or lesions noted, skin turgor normal and no jaundice Neuro moves all extremities Debridement Note Debridement Note No debridement was completed: No debridement was completed today Post-Debridement Measurements and Additional Note: Post-Debridement Measurements/Treatment - Nurse 1 - General Ulcer Assessment Start: 09/05/23 08:12 Freq: Status: Active Protocol: OLIVIA Activity Type Activity Date Activity User E-sign Co-sign Detail Recorded Client Recorded Date Recorded By Document 09/05/23 08:12 MT Desktop 09/05/23 08:23 MT Document 09/10/23 11:41 RB [id number] 09/10/23 11:44 RB Document 09/19/23 08:00 DL Desktop 09/19/23 08:09 DL 09/05/23 09/10/23 09/19/23 08:12 11:41 08:00 - Today's Visit Information Type of service Follow-up Visit Follow-up Visit Follow-up Visit (Physician/IT SUPPORT MANAGER (Physician/IT SUPPORT MANAGER (Physician/IT SUPPORT MANAGER ) ) ) Arrival Mode Ambulatory Ambulatory,Cane Ambulatory Transfer Assistance Manual,None None Accompanied by daughter in law Patient Identification Verified (Name & Yes Yes Yes ) Patient Requires Transmission-Based No Precautions Safety Precautions Fall Prevention Finger Stick Blood Sugar(mg/dl) (if 137 indicated): Blood Sugar Stated by Patient Height and Weight Body Mass Index (BMI) 31.4 31.4 31.4 BMI Classification Obese Obese Obese Vital Signs Temperature (97.8 F-99.1 F) 97.0 F L 96.4 F L 98.7 F Temperature Source Temporal Temporal Temporal Pulse Rate (60-100) 94 88 94 Pulse Location Monitor Monitor Monitor Respiratory Rate (12-18) 16 18 18 Respiratory rate source Observation Observation Observation Oxygen Delivery Method Room Air Blood Pressure (90/60-120/80) 113/62 141/87 H 125/86 H Blood Pressure Mean (mm Hg) 79 105 99 Source Monitor Monitor Monitor Position Sitting Semi-Fowlers Blood Pressure Location Right Arm Left Arm History Since Last Visit- (Skip if this is Patient's initial visit) Have you changed medications since your No No last visit? Any new allergies or adverse reactions No No Had a fall/change in ADL's that may No No increase risk of falls Signs or symptoms of abuse and/or No No neglect since last visit Have you been in the hospital since your No No last visit? Has dressing in place as prescribed Yes Yes Has compression in place as prescribed Yes Yes Has offloadiing in place as prescribed No N/A Experienced any changes in pain level or No No management Pain Scale: 0-10 Numeric Is Patient Pain Free? Yes Yes Yes WC - Nurse 1 - General Ulcer Measurement Start: 09/05/23 08:12 Freq: Status: Active Protocol: Activity Type Activity Date Activity User E-sign Co-sign Detail Recorded Client Recorded Date Recorded By Document 09/05/23 08:12 MT Desktop 09/05/23 08:23 MT Document 09/10/23 11:41 RB [id number] 09/10/23 11:44 RB Document 09/19/23 08:00 DL Desktop 09/19/23 08:09 DL 09/05/23 09/10/23 09/19/23 08:12 11:41 08:00 Wound Center Nurse 1 #9 LT ANKLE -Current Size (cm) - Length 1 0.7 -Current Size (cm) - Width 0.8 0.5 -Current Size (cm) - Depth 0.2 0.2 -Total Square Cm 0.8 0.35 -Exudate Amt Medium Small -Exudate Type Serosanguineous Serosanguineous -Wound Margin Distinct, Thickened Outline Attached -Granulation Amt Medium (34-66%) Small (1-33%) -Granulation Quality Sayre Sayre -Slough/Fibrin Yes -Necrosis Amt Medium (34-66%) Large (67-100%) -Necrotic Tissue Type Adherent Slough Adherent Slough -Structure Exposed N/A N/A -Texture (Jada-wound Skin Appearance) Assessed, Scarring Scarring -Moisture (Jada-wound Skin Appearance) Assessed Dry/Scaly -Color (Jada-wound Skin Appearance) Assessed Hemosiderin Staining -Temperature (Jada-wound Skin No Abnormality No Abnormality Appearance) (Pt Warm) (Pt Warm) -Tenderness on Palpation (Jada-wound No Skin Appearance) -Ulcer Cleansing Wound Cleanser Soap and Water -Foul Odor after Cleansing No No -Anesthetic Used 5% Lidocaine Gel Lower Limb Edema Present Yes Left Calf (cm) 37.5 35.5 Left Ankle (cm) 22 21.4 WC - Nurse 2 - General Ulcer CM Notes Start: 09/05/23 08:12 Freq: Status: Active Protocol: Activity Type Activity Date Activity User E-sign Co-sign Detail Recorded Client Recorded Date Recorded By Document 09/05/23 08:46 [email or web address] Desktop 09/05/23 08:51 BMF Document 09/19/23 08:42 [email or web address] Desktop 09/19/23 08:48 BMF 09/05/23 09/19/23 08:46 08:42 Wound Center Nurse 2 #9 LT ANKLE -Time 08:47 08:42 -Correct Patient Yes Yes -Correct Side, Site, Position Yes Yes -Correct Procedure Yes Yes -Procedure Performed Yes Yes -Type of Procedure Debridement Debridement -Clinical Debridement Subcutaneous Subcutaneous -Tissue Removed Subcutaneous Subcutaneous -Post Debridement (cm) - Length 0.6 0.7 -Post Debridement (cm) - Width 0.4 0.4 -Post Debridement (cm) - Depth 0.1 0.1 -Total Square (Post) (cm) 0.24 0.28 -Area of Debridement (cm) - Length 0.6 0.7 -Area of Debridement (cm) - Width 0.4 0.4 -Total Square (Area) (cm) 0.24 0.28 -Tunneling No No -Undermining/Tunneling No No -Circular Undermining No No -Wound/Ulcer Outcome Not Healed Not Healed -Ulcer Cleansing Rinsed/ Rinsed/ Irrigated with Irrigated with Saline Saline -Foul Odor after Cleansing No No -Bioengineered Tissue No No -Bleeding Controlled with Pressure Pressure -Treatment Response Procedure Procedure Tolerated Well Tolerated Well -Offloading No -Debridement - Subq, 1st 20sq cm Yes Yes Pain Scale: 0-10 Numeric Is Patient Pain Free? Yes Yes WC - Nurse 3 - General Ulcer D/C NN Start: 09/05/23 08:12 Freq: Status: Active Protocol: Activity Type Activity Date Activity User E-sign Co-sign Detail Recorded Client Recorded Date Recorded By Document 09/05/23 09:07 DL Desktop 09/05/23 09:09 DL Document 09/10/23 11:41 RB [id number] 09/10/23 11:44 RB Document 09/19/23 09:02 DL Desktop 09/19/23 09:03 DL 09/05/23 09/10/23 09/19/23 09:07 11:41 09:02 Wound Care Center Nurse 3 #9 LT ANKLE -Ulcer Cleansing Rinsed/ Rinsed/ Irrigated with Irrigated with Saline Saline -Foul Odor after Cleansing No No -Primary Dressing Applied Hysept ($) -Other Dressing dakins dakins dakins moistened gauze -Primary Dressing Covered/Secured with Dry Gauze Dry Gauze Dry Gauze & Roll Gauze, Secured with Tape Left -Multi-Layered Wrap Application Unna Boot - Unna Boot - Left ($) Left ($) -Tubular Bandage Single Layer -Size of Tubigrip Used Size D -Size D ($) 1 Treatment Response Procedure Procedure Procedure Tolerated Well Tolerated Well Tolerated Well Vital Signs Temperature (97.8 F-99.1 F) 96.4 F L Temperature Source Temporal Pulse Rate (60-100) 88 Pulse Location Monitor Respiratory Rate (12-18) 18 Respiratory rate source Observation Blood Pressure (90/60-120/80) 141/87 H Blood Pressure Mean (mm Hg) 105 Source Monitor Position Semi-Fowlers Blood Pressure Location Left Arm Pain Scale: 0-10 Numeric Is Patient Pain Free? Yes Yes Yes WC - Visit Discharge Discharge Condition Stable Stable Stable Ambulatory Status Ambulatory Ambulatory,Cane Ambulatory, Walker Transportation Private Auto Private Auto Private Auto Accompanied by daughter in law Medication Reconcilliation completed & No provided to patient/care provider Clinical Summary of Care Provided Yes Assessment/Plan Assessment/Plan (1) Non-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: CODE(S): L97.322 - Non-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 (2) Delayed wound healing: CODE(S): T14.8XXD - Other injury of unspecified body region, subsequent encounter (3) Venous insufficiency of both lower extremities: CODE(S): I87.2 - Venous insufficiency (chronic) (peripheral) (4) COPD (chronic obstructive pulmonary disease): CODE(S): J44.9 - Chronic obstructive pulmonary disease, unspecified (5) Hyperlipidemia: CODE(S): E78.5 - Hyperlipidemia, unspecified QUALIFIERS: Hyperlipidemia type: unspecified Qualified Code(s): E78.5 - Hyperlipidemia, unspecified (6) Chronic diastolic (congestive) heart failure: CODE(S): I50.32 - Chronic diastolic (congestive) heart failure (7) Longstanding persistent atrial fibrillation: CODE(S): I48.11 - Longstanding persistent atrial fibrillation (8) DM type 2 (diabetes mellitus, type 2): CODE(S): E11.9 - Type 2 diabetes mellitus without complications QUALIFIERS: Diabetes mellitus terminal gauger supervisor insulin use: with fdc use Diabetes mellitus complication status: with other specified complication Qualified Code(s): E11.69 - Type 2 diabetes mellitus with other specified complication; Z79.4 - intermediate accountant (current) use of insulin PLAN: Plan Patient seen and evaluated I reviewed his previous treatment history by PCP. Patient had followed Dr. Anderson. Ulceration to the left anterior lower extremity remains healed. No signs of infection. Left lateral ankle measures 0.7 cm x 0.4 cm x 0.1 cm. Wound underwent debridement as noted in clinical panel above. He has finished all 10 applications of EpiFix graft. Dakin's wet-to-dry dressing applied with Unna boot compression over site. He was instructed to not get the lower extremity/dressings wet. Lateral ankle wound demonstrates slight change in size vs previous visit. Overall tissue appears healthy and continues to fill in. Unna boot continued to be applied as ankle motion may be contributing factor of tension on wound. He was instructed to not get dressings wet LEAS ordered due to delayed healing of the anterolateral ankle wound and performed 07/23/2023. LEAS demonstrates triphasic Doppler waveforms at ankle level bilaterally with PVR satisfactory at all levels bilaterally. Resting FERMÍN indices normal bilateral. Digital brachial indices normal bilateral. No evidence of significant arterial occlusive disease of lower extremities. Discussed continued diabetic diet to ensure proper glucose control. Recent A1c 6.4%. Discussed that this is a good standing for control of his diabetes and will aid in wound healing. Discussed with to aid in daily foot checks as her is blind. Discussed wearing shoe gear at all times and to never go barefoot. Socks include barefoot. They voiced understanding of this today. Recommend continued follow-up with PCP for continued diabetic management. Discussed adequate protein intake to continue to aid in wound healing. Also discussed Negrito supplementation to aid in wound healing. Discussed signs and symptoms with the pertaining to infection. Discussed if she notices increasing redness about the wound margin spreading up the leg, any purulent drainage from the wound site, increasing foul odor from the wound, or if he experiences fever greater than 101 degree, nausea, vomiting, chills that these are signs of progressing infection and he needs to report to the ED. They voiced understanding of this today. The following work up and care recommendations were made: Dressing: Dakin's, dry sterile dressing, Unna boot. Leave dressings intact and Do not get wet. Wash: Do not get wet Tissue growth optimization: Dakin's Offload: Ensure anterior leg is not bumped and discussed no picking at skin sites. Vascular: DP and PT pulses palpable with adequate capillary fill time. However skin demonstrates trophic changes consistent with microvascular disease. Edema: No edema currently, has history of chronic venous stasis. Recommend continued compression stocking. Infection: No signs of infection. Pain: May take [id number] Tylenol extra strength for discomfort. Host factors: DM type II, chronic venous stasis, CHF, COPD, blindness I answered all the patient's questions. To return to the wound healing center in 2 weeks or call sooner if the patient has any questions or concerns.
== END 2023-10-01 23:59 | disposition home or self-care (01) ==
LOC: WC 08:15
PROVIDERS: PCP Family Medicine; Referring Provider Family Medicine; Visit Provider Student in an Organized Health Care Education/Training Program
DX: E11.621 Type 2 diabetes mellitus with foot ulcer (principal); L97.322 Non-pressure 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 layer exposed; I11.0 Hypertensive heart disease with heart failure; I50.32 Chronic diastolic (congestive) heart failure; J44.9 Chronic obstructive pulmonary disease, unspecified; I48.11 Longstanding persistent atrial fibrillation; Z79.4 Long term (current) use of insulin; E11.59 Type 2 diabetes mellitus with other circulatory complications; E78.5 Hyperlipidemia, unspecified; I87.2 Venous insufficiency (chronic) (peripheral)
CPT/HCPCS: 11042; 29580

== ENCOUNTER 2023-10-31 08:00 | Outpatient (RCR) | payer MEDICARE, OTHER, SELFPAY ==
[2023-10-02 00:17] VITALS: BP 125/86; PULSE 94; RESP 18; TEMP 37.1; BMI 31.4
[2023-10-03 08:04] VITALS: BP 142/69; PULSE 101; RESP 18; TEMP 36.4; BMI 31.4
--- NOTE | 2023-10-03 08:28 | PCM.WC.PN ---
History of Present Illness Date of Service: 10/03/23 Chief Complaint: Left Leg Ulcer History of Wound: Mr. Turcios is a 72-year-old with PMHx of of diabetes mellitus type 2, venous insufficiency bilateral lower extremity, history of multiple ulcerations, HTN, HLD, COPD, A-fib, CHF. He presents back to the wound care center today accompanied by his for nonhealing left lower extremity ulceration. states he has either bumped his leg on something or picked at some skin on the front of his leg creating a new wound. They state they have been following with Dr. Anderson in [place] as well as PCP Dr. Olguin. They state occasional use of mupirocin topical ointment but otherwise have not been applying dressings to the site. They state the wound has been present for a few weeks and has not made much progress and thus they were referred to the wound care center for continued wound healing. He denies N/V/F/chills. He has no further complaints. Subjective Subjective Patient is a 73-year-old male who follows up to the wound care center today for a left lower extremity ulceration. He is accompanied by vzfqopmb-tr-qdg today. Darbazqu-kz-ybp is aiding in daily dressing changes. He does not keep feet elevated as much as he should according to previous statements by and fgqfyrfc-wt-hor. Iangepwy-to-yyj states she is seeing improvement in the wound. He denies constitutional symptoms today. Denies further complaints today. Objective Data Objective Data Vital Signs: Vital Signs Temp Pulse Resp BP O2 Del Method 97.5 F L 101 H 18 142/69 H Room Air 10/03/23 08:04 10/03/23 08:04 10/03/23 08:04 10/03/23 08:04 10/03/23 08:04 Oxygen Delivery Method Room Air Weight: 114.015 kg Body Mass Index (BMI) 31.4 Physical Exam Const alert, oriented x3 and no apparent distress General Appearance: cooperative HEENT normocephalic Eyes Eyes Narrative: wears dark glasses General Eye: normal appearance of both eyes Neck General: normal visual inspection Lymph Lymphatic: no lymphadenopathy noted and no lymphedema noted Resp normal respiratory effort Cardio regular rate and regular rhythm Extremity no calf tenderness and no pedal edema Extremity Narrative: DP pulses palpable and PT pulses weakly palpable bilateral. CFT less than 3 seconds to the digits bilateral. Hair growth absent to digits of foot bilateral. Dermatological: Skin is thin and demonstrating trophic changes bilateral lower extremity. Skin is excessively dry with peeling/flaking consistent with diabetic autonomic neuropathy and microvascular disease. Ulceration to the anterior aspect overlying the tibial crest remains healed, no signs of infection. Ulceration noted to the lateral ankle with mixed fibrogranular layer. No signs of infection. Musculoskeletal: Muscle strength 5 of 5 age-appropriate. Decreased ankle range of motion in dorsiflexion with the knee extended without pain or crepitus bilateral. Decreased range of motion of the first metatarsophalangeal joint without pain or crepitus bilateral. There is hammertoe deformity of lesser digits bilateral without pain to palpation. Skin no rashes or lesions noted and no jaundice Neuro moves all extremities Debridement Note Debridement Note Wound debrided: Left lateral ankle Laterality: Left Wound Grade/Stage: Miguel stage I Type of Debridement: Excisional debridement Anesthesia Used: 5% Lidocaine Gel Depth: Down to and including healthy tissue and in the subcutaneous layer Percentage of wound debrided: 100 Instrument Used: 3mm curette Tissue Removed: Fibrous, devitalized subcutaneous, biofilm, slough Severity: Fat Layer Exposed Amount of bleeding with debridement: Mild Bleeding Controlled with: Compression and gauze Patient tolerated procedure: Patient tolerated procedure well Post-Debridement Measurements and Additional Note: Post-Debridement Measurements/Treatment - Nurse 1 - General Ulcer Assessment Start: 10/03/23 08:04 Freq: Status: Active Protocol: [email or web address].LOWEXT Activity Type Activity Date Activity User E-sign Co-sign Detail Recorded Client Recorded Date Recorded By Document 10/03/23 08:04 KW Desktop 10/03/23 08:09 KW 10/03/23 08:04 - Today's Visit Information Type of service Follow-up Visit (Physician/FIELD CARE MANAGER ) Arrival Mode Ambulatory,Cane Accompanied by granddaughter Patient Identification Verified (Name & Yes ) Height and Weight Body Mass Index (BMI) 31.4 BMI Classification Obese Vital Signs Temperature (97.8 F-99.1 F) 97.5 F L Temperature Source Temporal Pulse Rate (60-100) 101 H Pulse Location Monitor Respiratory Rate (12-18) 18 Respiratory rate source Observation Oxygen Delivery Method Room Air Blood Pressure (90/60-120/80) 142/69 H Blood Pressure Mean (mm Hg) 93 Source Monitor Position Semi-Fowlers Blood Pressure Location Left Arm History Since Last Visit- (Skip if this is Patient's initial visit) Have you changed medications since your No last visit? Any new allergies or adverse reactions No Had a fall/change in ADL's that may No increase risk of falls Signs or symptoms of abuse and/or No neglect since last visit Have you been in the hospital since your No last visit? Has dressing in place as prescribed Yes Has compression in place as prescribed Yes Has offloadiing in place as prescribed No Experienced any changes in pain level or Yes management Left Footwear Regular Shoe Right Footwear Regular Shoe Pain Scale: 0-10 Numeric Is Patient Pain Free? Yes WC - Nurse 1 - General Ulcer Measurement Start: 10/03/23 08:04 Freq: Status: Active Protocol: Activity Type Activity Date Activity User E-sign Co-sign Detail Recorded Client Recorded Date Recorded By Document 10/03/23 08:04 KW Desktop 10/03/23 08:09 KW 10/03/23 08:04 Wound Center Nurse 1 #9 LT ANKLE -Current Size (cm) - Length 1 -Current Size (cm) - Width 0.5 -Current Size (cm) - Depth 0.2 -Total Square Cm 0.5 -Exudate Amt Small -Exudate Type Serosanguineous -Wound Margin Distinct, Outline Attached -Granulation Amt Small (1-33%) -Granulation Quality Pale -Necrosis Amt Large (67-100%) -Necrotic Tissue Type Adherent Slough -Texture (Jada-wound Skin Appearance) Assessed -Moisture (Jada-wound Skin Appearance) Assessed,Dry/ Scaly -Color (Jada-wound Skin Appearance) Assessed -Temperature (Jada-wound Skin No Abnormality Appearance) (Pt Warm) -Tenderness on Palpation (Jada-wound No Skin Appearance) -Ulcer Cleansing Rinsed/ Irrigated with Saline -Foul Odor after Cleansing No -Anesthetic Used 5% Lidocaine Gel Left Calf (cm) 37 Left Ankle (cm) 21.5 Assessment/Plan Assessment/Plan (1) Non-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: CODE(S): L97.322 - Non-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 (2) Delayed wound healing: CODE(S): T14.8XXD - Other injury of unspecified body region, subsequent encounter (3) Venous insufficiency of both lower extremities: CODE(S): I87.2 - Venous insufficiency (chronic) (peripheral) (4) Chronic diastolic (congestive) heart failure: CODE(S): I50.32 - Chronic diastolic (congestive) heart failure (5) COPD (chronic obstructive pulmonary disease): CODE(S): J44.9 - Chronic obstructive pulmonary disease, unspecified (6) DM type 2 (diabetes mellitus, type 2): CODE(S): E11.9 - Type 2 diabetes mellitus without complications QUALIFIERS: Diabetes mellitus complication status: with other specified complication Diabetes mellitus fci insulin use: with exterminator helper use Qualified Code(s): E11.69 - Type 2 diabetes mellitus with other specified complication; Z79.4 - long-term (current) use of insulin (7) Hyperlipidemia: CODE(S): E78.5 - Hyperlipidemia, unspecified QUALIFIERS: Hyperlipidemia type: unspecified Qualified Code(s): E78.5 - Hyperlipidemia, unspecified PLAN: Plan Patient seen and evaluated I reviewed his previous treatment history by PCP. Patient had followed Dr. Anderson. Ulceration to the left anterior lower extremity remains healed. No signs of infection. Left lateral ankle measures 0.4 cm x 0.4 cm x 0.1 cm. Wound underwent debridement as noted in clinical panel above. He has finished all 10 applications of EpiFix graft. Dakin's wet-to-dry dressing applied with Unna boot compression over site. He was instructed to not get the lower extremity/dressings wet. Lateral ankle wound demonstrates reduction in size vs previous visit. Overall tissue appears healthy and continues to fill in with increased epithealialization at distal segment. Unna boot continued to be applied as ankle motion may be contributing factor of tension on wound. He was instructed to not get dressings wet LEAS ordered due to delayed healing of the anterolateral ankle wound and performed 07/23/2023. LEAS demonstrates triphasic Doppler waveforms at ankle level bilaterally with PVR satisfactory at all levels bilaterally. Resting FERMÍN indices normal bilateral. Digital brachial indices normal bilateral. No evidence of significant arterial occlusive disease of lower extremities. Discussed continued diabetic diet to ensure proper glucose control. Recent A1c 6.4%. Discussed that this is a good standing for control of his diabetes and will aid in wound healing. Discussed with to aid in daily foot checks as her is blind. Discussed wearing shoe gear at all times and to never go barefoot. Socks include barefoot. They voiced understanding of this today. Recommend continued follow-up with PCP for continued diabetic management. Discussed adequate protein intake to continue to aid in wound healing. Also discussed Negrito supplementation to aid in wound healing. Discussed signs and symptoms with the pertaining to infection. Discussed if she notices increasing redness about the wound margin spreading up the leg, any purulent drainage from the wound site, increasing foul odor from the wound, or if he experiences fever greater than 101 degree, nausea, vomiting, chills that these are signs of progressing infection and he needs to report to the ED. They voiced understanding of this today. The following work up and care recommendations were made: Dressing: Dakin's, dry sterile dressing, Unna boot. Leave dressings intact and Do not get wet. Wash: Do not get wet Tissue growth optimization: Dakin's Offload: Ensure anterior leg is not bumped and discussed no picking at skin sites. Vascular: DP and PT pulses palpable with adequate capillary fill time. However skin demonstrates trophic changes consistent with microvascular disease. Edema: No edema currently, has history of chronic venous stasis. Recommend continued compression stocking. Infection: No signs of infection. Pain: May take dxku-quc-qpqetmv Tylenol extra strength for discomfort. Host factors: DM type II, chronic venous stasis, CHF, COPD, blindness I answered all the patient's questions. To return to the wound healing center in 2 weeks or call sooner if the patient has any questions or concerns.
[2023-10-17 08:04] VITALS: BP 109/49; PULSE 94; RESP 18; TEMP 36.7; BMI 31.4
--- NOTE | 2023-10-17 09:57 | PN.PCM_ITS ---
History of Present Illness Date of Service: 10/17/23 Chief Complaint: Left Leg Ulcer History of Wound: Mr. Turcios is a 72-year-old with PMHx of of diabetes mellitus type 2, venous insufficiency bilateral lower extremity, history of multiple ulcerations, HTN, HLD, COPD, A-fib, CHF. He presents back to the wound care center today accompanied by his for nonhealing left lower extremity ulceration. states he has either bumped his leg on something or picked at some skin on the front of his leg creating a new wound. They state they have been following with Dr. Anderson in [place] as well as PCP Dr. Olguin. They state occasional use of mupirocin topical ointment but otherwise have not been applying dressings to the site. They state the wound has been present for a few weeks and has not made much progress and thus they were referred to the wound care center for continued wound healing. He denies N/V/F/chills. He has no further complaints. Subjective Subjective Patient is a 73-year-old male who follows up to the wound care center today for a left lower extremity ulceration. He is accompanied by qaxyxzok-br-dkg today. Glflargg-po-wpz is aiding in daily dressing changes. He does not keep feet elevated as much as he should according to previous statements by and dkvgriup-fl-wmh. Ozbukkpr-vm-chw states she is seeing improvement in the wound and believes it may be healed. He denies constitutional symptoms today. Denies further complaints today. Objective Data Objective Data Vital Signs: Vital Signs Temp Pulse Resp BP O2 Del Method 98.1 F 94 18 109/49 L Room Air 10/17/23 08:04 10/17/23 08:04 10/17/23 08:04 10/17/23 08:04 10/03/23 08:04 Oxygen Delivery Method Room Air Weight: 114.015 kg Body Mass Index (BMI) 31.4 Physical Exam Const alert, oriented x3 and no apparent distress General Appearance: cooperative HEENT normocephalic Eyes Eyes Narrative: wears dark glasses General Eye: normal appearance of both eyes Neck General: normal visual inspection Lymph Lymphatic: no lymphadenopathy noted and no lymphedema noted Resp normal respiratory effort Cardio regular rate and regular rhythm Extremity no calf tenderness and no pedal edema Extremity Narrative: DP pulses palpable and PT pulses weakly palpable bilateral. CFT less than 3 seconds to the digits bilateral. Hair growth absent to digits of foot bilateral. Dermatological: Skin is thin and demonstrating trophic changes bilateral lower extremity. Skin is excessively dry with peeling/flaking consistent with diabetic autonomic neuropathy and microvascular disease. Ulceration to the anterior aspect overlying the tibial crest remains healed, no signs of infection. Ulceration noted to the lateral ankle has healed. No signs of infection. Musculoskeletal: Muscle strength 5 of 5 age-appropriate. Decreased ankle range of motion in dorsiflexion with the knee extended without pain or crepitus bilateral. Decreased range of motion of the first metatarsophalangeal joint without pain or crepitus bilateral. There is hammertoe deformity of lesser digits bilateral without pain to palpation. Skin no rashes or lesions noted and no jaundice Neuro moves all extremities Debridement Note Debridement Note No debridement was completed: No debridement was completed today Post-Debridement Measurements and Additional Note: Post-Debridement Measurements/Treatment - Nurse 1 - General Ulcer Assessment Start: 10/03/23 08:04 Freq: Status: Active Protocol: BRYANNA.SHANNAN Activity Type Activity Date Activity User E-sign Co-sign Detail Recorded Client Recorded Date Recorded By Document 10/03/23 08:04 KW Desktop 10/03/23 08:09 KW Document 10/17/23 08:04 DL [email or web address] 10/17/23 08:08 DL 10/03/23 10/17/23 08:04 08:04 - Today's Visit Information Type of service Follow-up Visit Follow-up Visit (Physician/MARKETING OPERATIONS COORDINATOR (Physician/MARKETING OPERATIONS COORDINATOR ) ) Arrival Mode Ambulatory,Cane Ambulatory,Cane Transfer Assistance None Accompanied by granddaughter Patient Identification Verified (Name & Yes Yes ) Patient Requires Transmission-Based No Precautions Height and Weight Body Mass Index (BMI) 31.4 31.4 BMI Classification Obese Obese Vital Signs Temperature (97.8 F-99.1 F) 97.5 F L 98.1 F Temperature Source Temporal Temporal Pulse Rate (60-100) 101 H 94 Pulse Location Monitor Monitor Respiratory Rate (12-18) 18 18 Respiratory rate source Observation Observation Oxygen Delivery Method Room Air Blood Pressure (90/60-120/80) 142/69 H 109/49 L Blood Pressure Mean (mm Hg) 93 69 Source Monitor Monitor Position Semi-Fowlers Blood Pressure Location Left Arm History Since Last Visit- (Skip if this is Patient's initial visit) Have you changed medications since your No No last visit? Any new allergies or adverse reactions No No Had a fall/change in ADL's that may No No increase risk of falls Signs or symptoms of abuse and/or No No neglect since last visit Have you been in the hospital since your No No last visit? Has dressing in place as prescribed Yes Yes Has compression in place as prescribed Yes Yes Has offloadiing in place as prescribed No N/A Experienced any changes in pain level or Yes No management Left Footwear Regular Shoe Right Footwear Regular Shoe Pain Scale: 0-10 Numeric Is Patient Pain Free? Yes Yes WC - Nurse 1 - General Ulcer Measurement Start: 10/03/23 08:04 Freq: Status: Active Protocol: Activity Type Activity Date Activity User E-sign Co-sign Detail Recorded Client Recorded Date Recorded By Document 10/03/23 08:04 KW Desktop 10/03/23 08:09 KW Document 10/17/23 08:04 DL [email or web address] 10/17/23 08:08 DL 10/03/23 10/17/23 08:04 08:04 Wound Center Nurse 1 #9 LT ANKLE -Current Size (cm) - Length 1 0.1 -Current Size (cm) - Width 0.5 0.1 -Current Size (cm) - Depth 0.2 0.1 -Total Square Cm 0.5 0.01 -Photo Taken No -Exudate Amt Small None Present -Exudate Type Serosanguineous -Wound Margin Distinct, Thickened Outline Attached -Granulation Amt Small (1-33%) Small (1-33%) -Granulation Quality Pale Pale -Necrosis Amt Large (67-100%) Small (1-33%) -Necrotic Tissue Type Adherent Slough Adherent Slough -Structure Exposed N/A -Texture (Jada-wound Skin Appearance) Assessed Scarring -Moisture (Jada-wound Skin Appearance) Assessed,Dry/ No Abnormality Scaly -Color (Jada-wound Skin Appearance) Assessed No Abnormality -Temperature (Jada-wound Skin No Abnormality No Abnormality Appearance) (Pt Warm) (Pt Warm) -Tenderness on Palpation (Jada-wound No Skin Appearance) -Ulcer Cleansing Rinsed/ Soap and Water Irrigated with Saline -Foul Odor after Cleansing No No -Anesthetic Used 5% Lidocaine 5% Lidocaine Gel Gel Left Calf (cm) 37 36.7 Left Ankle (cm) 21.5 21.3 WC - Nurse 2 - General Ulcer CM Notes Start: 10/03/23 08:04 Freq: Status: Active Protocol: Activity Type Activity Date Activity User E-sign Co-sign Detail Recorded Client Recorded Date Recorded By Document 10/03/23 08:24 BMF Desktop 10/03/23 08:38 BMF Document 10/17/23 08:36 [facility] [email or web address] 10/17/23 08:40 BMF 10/03/23 10/17/23 08:24 08:36 Wound Center Nurse 2 #9 LT ANKLE -Time 08:24 08:37 -Correct Patient Yes -Correct Side, Site, Position Yes -Correct Procedure Yes -Procedure Performed Yes -Type of Procedure Debridement -Clinical Debridement Subcutaneous -Tissue Removed Subcutaneous -Post Debridement (cm) - Length 0.4 0.1 -Post Debridement (cm) - Width 0.4 0.1 -Post Debridement (cm) - Depth 0.1 0.1 -Total Square (Post) (cm) 0.16 0.01 -Area of Debridement (cm) - Length 0.4 0.1 -Area of Debridement (cm) - Width 0.4 0.1 -Total Square (Area) (cm) 0.16 0.01 -Tunneling No -Undermining/Tunneling No -Circular Undermining No -Wound/Ulcer Outcome Not Healed Not Healed -Ulcer Cleansing Rinsed/ Irrigated with Saline -Foul Odor after Cleansing No -Bioengineered Tissue No -Bleeding Controlled with Pressure -Treatment Response Procedure Tolerated Well -Debridement - Subq, 1st 20sq cm Yes Pain Scale: 0-10 Numeric Is Patient Pain Free? Yes Yes - Nurse 3 - General Ulcer D/C NN Start: 10/03/23 08:04 Freq: Status: Active Protocol: Activity Type Activity Date Activity User E-sign Co-sign Detail Recorded Client Recorded Date Recorded By Document 10/03/23 08:44 KW Desktop 10/03/23 08:46 KW Document 10/17/23 08:49 DL [email or web address] 10/17/23 08:49 DL 10/03/23 10/17/23 08:44 08:49 Wound Care Center Nurse 3 #9 LT ANKLE -Ulcer Cleansing Rinsed/ Irrigated with Saline -Foul Odor after Cleansing No -Primary Dressing Applied Mepilex Border -Other Dressing dakins moistened gauze -Primary Dressing Covered/Secured with Dry Gauze, Secured with Tape -Mepilex Border 1 Left -Tubular Bandage Single Layer -Size of Tubigrip Used Size D -Size D ($) 1 Treatment Response Procedure Tolerated Well Pain Scale: 0-10 Numeric Is Patient Pain Free? No Yes WC - Visit Discharge Discharge Condition Stable Stable Ambulatory Status Ambulatory,Cane Ambulatory,Cane Transportation Private Auto Private Auto Accompanied by family Medication Reconcilliation completed & No provided to patient/care provider Clinical Summary of Care Provided Yes Facility Type Home Health Orders Sent Yes Assessment/Plan Assessment/Plan (1) Non-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: CODE(S): L97.322 - Non-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 (2) Delayed wound healing: CODE(S): T14.8XXD - Other injury of unspecified body region, subsequent encounter (3) Venous insufficiency of both lower extremities: CODE(S): I87.2 - Venous insufficiency (chronic) (peripheral) (4) Chronic diastolic (congestive) heart failure: CODE(S): I50.32 - Chronic diastolic (congestive) heart failure (5) COPD (chronic obstructive pulmonary disease): CODE(S): J44.9 - Chronic obstructive pulmonary disease, unspecified (6) DM type 2 (diabetes mellitus, type 2): CODE(S): E11.9 - Type 2 diabetes mellitus without complications QUALIFIERS: Diabetes mellitus intermediate school teacher insulin use: with detention use Diabetes mellitus complication status: with other specified c omplication Qualified Code(s): E11.69 - Type 2 diabetes mellitus with other specified complication; Z79.4 - intermediate school teacher (current) use of insulin (7) Hyperlipidemia: CODE(S): E78.5 - Hyperlipidemia, unspecified QUALIFIERS: Hyperlipidemia type: unspecified Qualified Code(s): E78.5 - Hyperlipidemia, unspecified PLAN: Plan Patient seen and evaluated I reviewed his previous treatment history by PCP. Patient had followed Dr. Anderson. Ulceration to the left anterior lower extremity remains healed. No signs of infection. Left lateral ankle ulceration has healed. He has finished all 10 applications of EpiFix graft. Bordered foam dressing applied to the lateral ankle and he was instructed to pad and protect area for next 7 to 10 days. Lateral ankle wound demonstrates healed status vs previous visit. LEAS ordered due to delayed healing of the anterolateral ankle wound and performed 07/23/2023. LEAS demonstrates triphasic Doppler waveforms at ankle level bilaterally with PVR satisfactory at all levels bilaterally. Resting FERMÍN indices normal bilateral. Digital brachial indices normal bilateral. No evidence of significant arterial occlusive disease of lower extremities. Discussed continued diabetic diet to ensure proper glucose control. Recent A1c 6.4%. Discussed that this is a good standing for control of his diabetes and will aid in wound healing. Discussed with to aid in daily foot checks as her is blind. Discussed wearing shoe gear at all times and to never go barefoot. Socks include barefoot. They voiced understanding of this today. Recommend continued follow-up with PCP for continued diabetic management. Discussed adequate protein intake to continue to aid in wound healing. Also discussed Negrito supplementation to aid in wound healing. Discussed signs and symptoms with the pertaining to infection. Discussed if she notices increasing redness about the wound margin spreading up the leg, any purulent drainage from the wound site, increasing foul odor from the wound, or if he experiences fever greater than 101 degree, nausea, vomiting, chills that these are signs of progressing infection and he needs to report to the ED. They voiced understanding of this today. The following work up and care recommendations were made: Dressing: Border foam dressing to pad and protect for next 7 to 10 days Wash: Soap and water Tissue growth optimization: None Offload: Ensure anterior leg is not bumped and discussed no picking at skin sites. Vascular: DP and PT pulses palpable with adequate capillary fill time. However skin demonstrates trophic changes consistent with microvascular disease. Edema: No edema currently, has history of chronic venous stasis. Recommend continued compression stocking. Infection: No signs of infection. Pain: May take dbfs-fmj-esasjho Tylenol extra strength for discomfort. Host factors: DM type II, chronic venous stasis, CHF, COPD, blindness Discussed returning in 2 weeks to reevaluate to ensure wound remains healed. He is in agreement with this. I answered all the patient's questions. To return to the wound healing center in 2 weeks or call sooner if the patient has any questions or concerns.
[2023-10-31 08:14] VITALS: BP 135/75; PULSE 92; RESP 20; TEMP 36.4; BMI 31.4
--- NOTE | 2023-10-31 08:21 | PCM.WC.PN ---
History of Present Illness Date of Service: 10/31/23 Chief Complaint: Left Leg Ulcer History of Wound: Mr. Turcios is a 72-year-old with PMHx of of diabetes mellitus type 2, venous insufficiency bilateral lower extremity, history of multiple ulcerations, HTN, HLD, COPD, A-fib, CHF. He presents back to the wound care center today accompanied by his for nonhealing left lower extremity ulceration. states he has either bumped his leg on something or picked at some skin on the front of his leg creating a new wound. They state they have been following with Dr. Anderson in [place] as well as PCP Dr. Olguin. They state occasional use of mupirocin topical ointment but otherwise have not been applying dressings to the site. They state the wound has been present for a few weeks and has not made much progress and thus they were referred to the wound care center for continued wound healing. He denies N/V/F/chills. He has no further complaints. Subjective Subjective Patient is a 73-year-old male who follows up to the wound care center today for a left lower extremity ulceration. He is accompanied by cvbftxct-fl-rlq today. Iwiyrnju-rp-dzw is aiding in daily dressing changes consisting of padding and protecting the lateral ankle. He does not keep feet elevated as much as he should according to previous statements by and ncvxoqem-wv-eut. Bmdjtpyl-hu-yzj states wound has not reopened but he has a new spot of concern to the medial ankle. He denies constitutional symptoms today. Denies further complaints today. Objective Data Objective Data Vital Signs: Vital Signs Temp Pulse Resp BP O2 Del Method 98.1 F 94 18 109/49 L Room Air 10/17/23 08:04 10/17/23 08:04 10/17/23 08:04 10/17/23 08:04 10/03/23 08:04 Oxygen Delivery Method Room Air Weight: 114.015 kg Body Mass Index (BMI) 31.4 Physical Exam Const alert, oriented x3 and no apparent distress General Appearance: cooperative HEENT normocephalic Eyes Eyes Narrative: wears dark glasses General Eye: normal appearance of both eyes Neck General: normal visual inspection Lymph Lymphatic: no lymphadenopathy noted and no lymphedema noted Resp normal respiratory effort Cardio regular rate and regular rhythm Extremity no calf tenderness and no pedal edema Extremity Narrative: DP pulses palpable and PT pulses weakly palpable bilateral. CFT less than 3 seconds to the digits bilateral. Hair growth absent to digits of foot bilateral. Dermatological: Skin is thin and demonstrating trophic changes bilateral lower extremity. Skin is excessively dry with peeling/flaking consistent with diabetic autonomic neuropathy and microvascular disease. Ulceration to the anterior aspect overlying the tibial crest remains healed, no signs of infection. Ulceration noted to the lateral ankle has healed. New area of friable skin medial lower extremity just proximal to medial malleolus. No signs of infection. Musculoskeletal: Muscle strength 5 of 5 age-appropriate. Decreased ankle range of motion in dorsiflexion with the knee extended without pain or crepitus bilateral. Decreased range of motion of the first metatarsophalangeal joint without pain or crepitus bilateral. There is hammertoe deformity of lesser digits bilateral without pain to palpation. Skin no rashes or lesions noted and no jaundice Neuro moves all extremities Debridement Note Debridement Note No debridement was completed: No debridement was completed today Post-Debridement Measurements and Additional Note: Post-Debridement Measurements/Treatment - Nurse 1 - General Ulcer Assessment Start: 10/03/23 08:04 Freq: Status: Active Protocol: [email or web address] Activity Type Activity Date Activity User E-sign Co-sign Detail Recorded Client Recorded Date Recorded By Document 10/03/23 08:04 KW Desktop 10/03/23 08:09 KW Document 10/17/23 08:04 DL [email or web address] 10/17/23 08:08 DL 10/03/23 10/17/23 08:04 08:04 - Today's Visit Information Type of service Follow-up Visit Follow-up Visit (Physician/CATEGORY CONSULTANT (Physician/CATEGORY CONSULTANT ) ) Arrival Mode Ambulatory,Cane Ambulatory,Cane Transfer Assistance None Accompanied by granddaughter Patient Identification Verified (Name & Yes Yes ) Patient Requires Transmission-Based No Precautions Height and Weight Body Mass Index (BMI) 31.4 31.4 BMI Classification Obese Obese Vital Signs Temperature (97.8 F-99.1 F) 97.5 F L 98.1 F Temperature Source Temporal Temporal Pulse Rate (60-100) 101 H 94 Pulse Location Monitor Monitor Respiratory Rate (12-18) 18 18 Respiratory rate source Observation Observation Oxygen Delivery Method Room Air Blood Pressure (90/60-120/80) 142/69 H 109/49 L Blood Pressure Mean (mm Hg) 93 69 Source Monitor Monitor Position Semi-Fowlers Blood Pressure Location Left Arm History Since Last Visit- (Skip if this is Patient's initial visit) Have you changed medications since your No No last visit? Any new allergies or adverse reactions No No Had a fall/change in ADL's that may No No increase risk of falls Signs or symptoms of abuse and/or No No neglect since last visit Have you been in the hospital since your No No last visit? Has dressing in place as prescribed Yes Yes Has compression in place as prescribed Yes Yes Has offloadiing in place as prescribed No N/A Experienced any changes in pain level or Yes No management Left Footwear Regular Shoe Right Footwear Regular Shoe Pain Scale: 0-10 Numeric Is Patient Pain Free? Yes Yes WC - Nurse 1 - General Ulcer Measurement Start: 10/03/23 08:04 Freq: Status: Active Protocol: Activity Type Activity Date Activity User E-sign Co-sign Detail Recorded Client Recorded Date Recorded By Document 10/03/23 08:04 KW Desktop 10/03/23 08:09 KW Document 10/17/23 08:04 DL [email or web address] 10/17/23 08:08 DL 10/03/23 10/17/23 08:04 08:04 Wound Center Nurse 1 #9 LT ANKLE -Current Size (cm) - Length 1 0.1 -Current Size (cm) - Width 0.5 0.1 -Current Size (cm) - Depth 0.2 0.1 -Total Square Cm 0.5 0.01 -Photo Taken No -Exudate Amt Small None Present -Exudate Type Serosanguineous -Wound Margin Distinct, Thickened Outline Attached -Granulation Amt Small (1-33%) Small (1-33%) -Granulation Quality Pale Pale -Necrosis Amt Large (67-100%) Small (1-33%) -Necrotic Tissue Type Adherent Slough Adherent Slough -Structure Exposed N/A -Texture (Jada-wound Skin Appearance) Assessed Scarring -Moisture (Jada-wound Skin Appearance) Assessed,Dry/ No Abnormality Scaly -Color (Jada-wound Skin Appearance) Assessed No Abnormality -Temperature (Jada-wound Skin No Abnormality No Abnormality Appearance) (Pt Warm) (Pt Warm) -Tenderness on Palpation (Jada-wound No Skin Appearance) -Ulcer Cleansing Rinsed/ Soap and Water Irrigated with Saline -Foul Odor after Cleansing No No -Anesthetic Used 5% Lidocaine 5% Lidocaine Gel Gel Left Calf (cm) 37 36.7 Left Ankle (cm) 21.5 21.3 WC - Nurse 2 - General Ulcer CM Notes Start: 10/03/23 08:04 Freq: Status: Active Protocol: Activity Type Activity Date Activity User E-sign Co-sign Detail Recorded Client Recorded Date Recorded By Document 10/03/23 08:24 BMF Desktop 10/03/23 08:38 BMF Document 10/17/23 08:36 BMF [email or web address] 10/17/23 08:40 BMF 10/03/23 10/17/23 08:24 08:36 Wound Center Nurse 2 #9 LT ANKLE -Time 08:24 08:37 -Correct Patient Yes -Correct Side, Site, Position Yes -Correct Procedure Yes -Procedure Performed Yes -Type of Procedure Debridement -Clinical Debridement Subcutaneous -Tissue Removed Subcutaneous -Post Debridement (cm) - Length 0.4 0.1 -Post Debridement (cm) - Width 0.4 0.1 -Post Debridement (cm) - Depth 0.1 0.1 -Total Square (Post) (cm) 0.16 0.01 -Area of Debridement (cm) - Length 0.4 0.1 -Area of Debridement (cm) - Width 0.4 0.1 -Total Square (Area) (cm) 0.16 0.01 -Tunneling No -Undermining/Tunneling No -Circular Undermining No -Wound/Ulcer Outcome Not Healed Not Healed -Ulcer Cleansing Rinsed/ Irrigated with Saline -Foul Odor after Cleansing No -Bioengineered Tissue No -Bleeding Controlled with Pressure -Treatment Response Procedure Tolerated Well -Debridement - Subq, 1st 20sq cm Yes Pain Scale: 0-10 Numeric Is Patient Pain Free? Yes Yes BRYANNA - Nurse 3 - General Ulcer D/C NN Start: 10/03/23 08:04 Freq: Status: Active Protocol: Activity Type Activity Date Activity User E-sign Co-sign Detail Recorded Client Recorded Date Recorded By Document 10/03/23 08:44 KW Desktop 10/03/23 08:46 KW Document 10/17/23 08:49 DL [email or web address] 10/17/23 08:49 DL 10/03/23 10/17/23 08:44 08:49 Wound Care Center Nurse 3 #9 LT ANKLE -Ulcer Cleansing Rinsed/ Irrigated with Saline -Foul Odor after Cleansing No -Primary Dressing Applied Mepilex Border -Other Dressing dakins moistened gauze -Primary Dressing Covered/Secured with Dry Gauze, Secured with Tape -Mepilex Border 1 Left -Tubular Bandage Single Layer -Size of Tubigrip Used Size D -Size D ($) 1 Treatment Response Procedure Tolerated Well Pain Scale: 0-10 Numeric Is Patient Pain Free? No Yes WC - Visit Discharge Discharge Condition Stable Stable Ambulatory Status Ambulatory,Cane Ambulatory,Cane Transportation Private Auto Private Auto Accompanied by family Medication Reconcilliation completed & No provided to patient/care provider Clinical Summary of Care Provided Yes Facility Type Home Health Orders Sent Yes Assessment/Plan Assessment/Plan (1) Non-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: CODE(S): L97.322 - Non-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 (2) Delayed wound healing: CODE(S): T14.8XXD - Other injury of unspecified body region, subsequent encounter (3) Venous insufficiency of both lower extremities: CODE(S): I87.2 - Venous insufficiency (chronic) (peripheral) (4) Chronic diastolic (congestive) heart failure: CODE(S): I50.32 - Chronic diastolic (congestive) heart failure (5) COPD (chronic obstructive pulmonary disease): CODE(S): J44.9 - Chronic obstructive pulmonary disease, unspecified (6) DM type 2 (diabetes mellitus, type 2): CODE(S): E11.9 - Type 2 diabetes mellitus without complications QUALIFIERS: Diabetes mellitus complication status: with other specified complication Diabetes mellitus correction insulin use: with parts counterman use Qualified Code(s): E11.69 - Type 2 diabetes mellitus with other specified complication; Z79.4 - skilled nursing (current) use of insulin (7) Hyperlipidemia: CODE(S): E78.5 - Hyperlipidemia, unspecified QUALIFIERS: Hyperlipidemia type: unspecified Qualified Code(s): E78.5 - Hyperlipidemia, unspecified PLAN: Plan Patient seen and evaluated I reviewed his previous treatment history by PCP. Patient had followed Dr. Anderson. Ulceration to the left anterior lower extremity remains healed. No signs of infection. Left lateral ankle ulceration remains healed. He has finished all 10 applications of EpiFix graft. Bordered foam dressing applied to the lateral ankle and he was instructed to continue to pad and protect area. Discussed his new area of concern to the medial ankle with sensitive friable skin. Discussed padding and protecting this area as well to prevent opening new ulceration. Lateral ankle wound demonstrates healed status, however new area of concern with friable skin to the medial ankle versus previous visit. LEAS ordered due to delayed healing of the anterolateral ankle wound and performed 07/23/2023. LEAS demonstrates triphasic Doppler waveforms at ankle level bilaterally with PVR satisfactory at all levels bilaterally. Resting FERMÍN indices normal bilateral. Digital brachial indices normal bilateral. No evidence of significant arterial occlusive disease of lower extremities. Discussed continued diabetic diet to ensure proper glucose control. Recent A1c 6.4%. Discussed that this is a good standing for control of his diabetes and will aid in wound healing. Discussed with to aid in daily foot checks as her is blind. Discussed wearing shoe gear at all times and to never go barefoot. Socks include barefoot. They voiced understanding of this today. Recommend continued follow-up with PCP for continued diabetic management. Discussed adequate protein intake to continue to aid in wound healing. Also discussed Negrito supplementation to aid in wound healing. Discussed signs and symptoms with the pertaining to infection. Discussed if she notices increasing redness about the wound margin spreading up the leg, any purulent drainage from the wound site, increasing foul odor from the wound, or if he experiences fever greater than 101 degree, nausea, vomiting, chills that these are signs of progressing infection and he needs to report to the ED. They voiced understanding of this today. The following work up and care recommendations were made: Dressing: Border foam dressing to pad and protect for next 7 to 10 days Wash: Soap and water Tissue growth optimization: None Offload: Ensure anterior leg is not bumped and discussed no picking at skin sites. Vascular: DP and PT pulses palpable with adequate capillary fill time. However skin demonstrates trophic changes consistent with microvascular disease. Edema: No edema currently, has history of chronic venous stasis. Recommend continued compression stocking. Infection: No signs of infection. Pain: May take [id number]-[id number] Tylenol extra strength for discomfort. Host factors: DM type II, chronic venous stasis, CHF, COPD, blindness Discussed returning in 2 weeks to reevaluate to ensure wound remains healed. He is in agreement with this. I answered all the patient's questions. To return to the wound healing center in 2 weeks or call sooner if the patient has any questions or concerns.
== END 2023-11-01 23:59 | disposition home or self-care (01) ==
LOC: WC 08:00
PROVIDERS: PCP Family Medicine; Referring Provider Family Medicine; Visit Provider Student in an Organized Health Care Education/Training Program
DX: E11.622 Type 2 diabetes mellitus with other skin ulcer (principal); L97.322 Non-pressure 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 layer exposed; I11.0 Hypertensive heart disease with heart failure; I50.32 Chronic diastolic (congestive) heart failure; J44.9 Chronic obstructive pulmonary disease, unspecified; Z79.4 Long term (current) use of insulin; E11.59 Type 2 diabetes mellitus with other circulatory complications; E78.5 Hyperlipidemia, unspecified; I87.2 Venous insufficiency (chronic) (peripheral)
CPT/HCPCS: 11042; 99213; G0463

== ENCOUNTER 2023-11-28 08:00 | Outpatient (RCR) | payer MEDICARE, OTHER, SELFPAY ==
[2023-11-02 01:43] VITALS: BP 125/86; PULSE 94; RESP 18; TEMP 37.1; BMI 31.4
[2023-11-14 08:03] VITALS: BP 128/73; PULSE 92; RESP 16; TEMP 36.7; BMI 31.4
--- NOTE | 2023-11-14 08:26 | PCM.WC.PN ---
History of Present Illness Date of Service: 11/14/23 Chief Complaint: Left Leg Ulcer History of Wound: Mr. Turcios is a 72-year-old with PMHx of of diabetes mellitus type 2, venous insufficiency bilateral lower extremity, history of multiple ulcerations, HTN, HLD, COPD, A-fib, CHF. He presents back to the wound care center today accompanied by his for nonhealing left lower extremity ulceration. states he has either bumped his leg on something or picked at some skin on the front of his leg creating a new wound. They state they have been following with Dr. Anderson in [place] as well as PCP Dr. Olguin. They state occasional use of mupirocin topical ointment but otherwise have not been applying dressings to the site. They state the wound has been present for a few weeks and has not made much progress and thus they were referred to the wound care center for continued wound healing. He denies N/V/F/chills. He has no further complaints. Subjective Subjective Patient is a 73-year-old male who follows up to the wound care center today for a left lower extremity ulceration. He is accompanied by eyesksim-oy-jae today. Pmwniwce-oi-ikt is aiding in daily dressing changes consisting of padding and protecting the lateral ankle. He does not keep feet elevated as much as he should according to previous statements by and qdhfctbi-nj-agv. Eqjbcaav-gl-vmw states wound has not reopened but he has a new spot of concern to the medial ankle. He denies constitutional symptoms today. Denies further complaints today. Objective Data Objective Data Vital Signs: Vital Signs Temp Pulse Resp BP O2 Del Method 98.1 F 92 16 128/73 H Room Air 11/14/23 08:03 11/14/23 08:03 11/14/23 08:03 11/14/23 08:03 11/14/23 08:03 Oxygen Delivery Method Room Air Weight: 114.015 kg Body Mass Index (BMI) 31.4 Physical Exam Const alert, oriented x3 and no apparent distress General Appearance: cooperative HEENT normocephalic Eyes General Eye: normal appearance of both eyes Neck General: normal visual inspection Lymph Lymphatic: no lymphadenopathy noted and no lymphedema noted Resp normal respiratory effort Cardio regular rate and regular rhythm Extremity no joint enlargement, no calf tenderness and no pedal edema Extremity Narrative: Vascular: DP pulses palpable and PT pulses weakly palpable bilateral. CFT less than 3 seconds to the digits bilateral. Hair growth absent to digits of foot bilateral. Dermatological: Skin is thin and demonstrating trophic changes bilateral lower extremity. Skin is excessively dry with peeling/flaking consistent with diabetic autonomic neuropathy and microvascular disease. Ulceration to the anterior aspect overlying the tibial crest remains healed, no signs of infection. Ulceration noted to the lateral ankle has reopened with fibrous tissue slough. Area of friable skin medial lower extremity just proximal to medial malleolus has healed. No signs of infection. Musculoskeletal: Muscle strength 5 of 5 age-appropriate. Decreased ankle range of motion in dorsiflexion with the knee extended without pain or crepitus bilateral. Decreased range of motion of the first metatarsophalangeal joint without pain or crepitus bilateral. There is hammertoe deformity of lesser digits bilateral without pain to palpation. Skin no rashes or lesions noted, skin turgor normal and no jaundice Neuro moves all extremities Debridement Note Debridement Note Wound debrided: Left lateral ankle Laterality: Left Wound Grade/Stage: Miguel stage I Type of Debridement: Excisional debridement Anesthesia Used: 5% Lidocaine Gel Depth: Down to and including healthy tissue and in the subcutaneous layer Percentage of wound debrided: 100 Instrument Used: - (1 mm curette) Severity: Fat Layer Exposed Amount of bleeding with debridement: Mild Bleeding Controlled with: Compression and gauze Patient tolerated procedure: Patient tolerated procedure well Post-Debridement Measurements and Additional Note: Post-Debridement Measurements/Treatment - Nurse 1 - General Ulcer Assessment Start: 11/14/23 08:02 Freq: Status: Active Protocol: BRYANNA.SHANNAN Activity Type Activity Date Activity User E-sign Co-sign Detail Recorded Client Recorded Date Recorded By Document 11/14/23 08:03 DS 1 11/14/23 08:05 DS 11/14/23 08:03 - Today's Visit Information Type of service Follow-up Visit (Physician/MUTUEL CLERK ) Arrival Mode Ambulatory,Cane Safety Precautions NA Height and Weight Body Mass Index (BMI) 31.4 BMI Classification Obese Vital Signs Temperature (97.8 F-99.1 F) 98.1 F Temperature Source Temporal Pulse Rate (60-100) 92 Pulse Location Monitor Respiratory Rate (12-18) 16 Respiratory rate source Observation Oxygen Delivery Method Room Air Blood Pressure (90/60-120/80) 128/73 H Blood Pressure Mean (mm Hg) 91 Source Monitor Position Sitting Blood Pressure Location Left Arm History Since Last Visit- (Skip if this is Patient's initial visit) Have you changed medications since your No last visit? Any new allergies or adverse reactions No Had a fall/change in ADL's that may No increase risk of falls Signs or symptoms of abuse and/or No neglect since last visit Have you been in the hospital since your No last visit? Has dressing in place as prescribed Yes Has compression in place as prescribed No Has offloadiing in place as prescribed No Experienced any changes in pain level or No management Left Footwear Regular Shoe Right Footwear Regular Shoe Pain Scale: 0-10 Numeric Is Patient Pain Free? Yes WC - Nurse 1 - General Ulcer Measurement Start: 11/14/23 08:02 Freq: Status: Active Protocol: Activity Type Activity Date Activity User E-sign Co-sign Detail Recorded Client Recorded Date Recorded By Document 11/14/23 08:03 DS 1 11/14/23 08:05 DS Edit Result 11/14/23 08:03 DS (1) 1 11/14/23 08:05 DS (1) Right Calf (cm) => 37.0 Right Ankle (cm) => 22.1 11/14/23 08:03 Wound Center Nurse 1 #9 LT ANKLE -Current Size (cm) - Length 0.1 -Current Size (cm) - Width 0.1 -Current Size (cm) - Depth 0.1 -Total Square Cm 0.01 -Photo Taken No -Wound Margin Distinct, Outline Attached -Necrosis Amt Large (67-100%) -Necrotic Tissue Type Adherent Slough -Texture (Jada-wound Skin Appearance) Assessed -Moisture (Jada-wound Skin Appearance) Assessed -Color (Jada-wound Skin Appearance) Assessed -Temperature (Jada-wound Skin No Abnormality Appearance) (Pt Warm) -Tenderness on Palpation (Jada-wound No Skin Appearance) -Ulcer Cleansing Rinsed/ Irrigated with Saline Right Calf (cm) 37.0 Right Ankle (cm) 22.1 Assessment/Plan Assessment/Plan (1) Non-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: CODE(S): L97.322 - Non-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 (2) 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 layer exposed: CODE(S): L97.222 - 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 layer exposed (3) Delayed wound healing: CODE(S): T14.8XXD - Other injury of unspecified body region, subsequent encounter (4) DM type 2 (diabetes mellitus, type 2): CODE(S): E11.9 - Type 2 diabetes mellitus without complications QUALIFIERS: Diabetes mellitus complication status: with other specified complication Diabetes mellitus assisted insulin use: with termite helper use Qualified Code(s): E11.69 - Type 2 diabetes mellitus with other specified complication; Z79.4 - FPC (current) use of insulin (5) Venous insufficiency of both lower extremities: CODE(S): I87.2 - Venous insufficiency (chronic) (peripheral) (6) Chronic diastolic (congestive) heart failure: CODE(S): I50.32 - Chronic diastolic (congestive) heart failure PLAN: Plan Patient seen and evaluated I reviewed his previous treatment history by PCP. Patient had followed Dr. Anderson. Ulceration to the left anterior lower extremity remains healed. No signs of infection. Left lateral ankle ulceration remains healed. He has finished all 10 applications of EpiFix graft. Lateral ankle has reopened medial ankle has healed at this time. Lateral ankle ulceration underwent debridement as noted in clinical panel above. Ulceration at this time measures 0.5 cm x 0.3 cm x 0.1 cm. No signs of infection. Sunni applied to the wound base and dressed with foam border dressing. He is to change dressing daily. LEAS ordered due to delayed healing of the anterolateral ankle wound and performed 07/23/2023. LEAS demonstrates triphasic Doppler waveforms at ankle level bilaterally with PVR satisfactory at all levels bilaterally. Resting FERMÍN indices normal bilateral. Digital brachial indices normal bilateral. No evidence of significant arterial occlusive disease of lower extremities. Discussed continued diabetic diet to ensure proper glucose control. Recent A1c 6.4%. Discussed that this is a good standing for control of his diabetes and will aid in wound healing. Discussed with to aid in daily foot checks as her is blind. Discussed wearing shoe gear at all times and to never go barefoot. Socks include barefoot. They voiced understanding of this today. Recommend continued follow-up with PCP for continued diabetic management. Discussed adequate protein intake to continue to aid in wound healing. Also discussed Negrito supplementation to aid in wound healing. Discussed signs and symptoms with the pertaining to infection. Discussed if she notices increasing redness about the wound margin spreading up the leg, any purulent drainage from the wound site, increasing foul odor from the wound, or if he experiences fever greater than 101 degree, nausea, vomiting, chills that these are signs of progressing infection and he needs to report to the ED. They voiced understanding of this today. The following work up and care recommendations were made: Dressing: Sunni and foam border dressing. Change daily. Wash: Soap and water Tissue growth optimization: Sunni Offload: Ensure anterior leg is not bumped and discussed no picking at skin sites. Vascular: DP and PT pulses palpable with adequate capillary fill time. However skin demonstrates trophic changes consistent with microvascular disease. Edema: No edema currently, has history of chronic venous stasis. Recommend continued compression stocking. Infection: No signs of infection. Pain: May take [id number]-[id number] Tylenol extra strength for discomfort. Host factors: DM type II, chronic venous stasis, CHF, COPD, blindness Discussed returning in 2 weeks to reevaluate to ensure wound remains healed. He is in agreement with this. I answered all the patient's questions. To return to the wound healing center in 2 weeks or call sooner if the patient has any questions or concerns.
[2023-11-28 08:09] VITALS: BP 128/67; PULSE 90; RESP 18; TEMP 36.4; BMI 31.4
--- NOTE | 2023-11-28 08:28 | PN.PCM_ITS ---
History of Present Illness Date of Service: 11/28/23 Chief Complaint: Left Leg Ulcer History of Wound: Mr. Turcios is a 72-year-old with PMHx of of diabetes mellitus type 2, venous insufficiency bilateral lower extremity, history of multiple ulcerations, HTN, HLD, COPD, A-fib, CHF. He presents back to the wound care center today accompanied by his for nonhealing left lower extremity ulceration. states he has either bumped his leg on something or picked at some skin on the front of his leg creating a new wound. They state they have been following with Dr. Anderson in [place] as well as PCP Dr. Olguin. They state occasional use of mupirocin topical ointment but otherwise have not been applying dressings to the site. They state the wound has been present for a few weeks and has not made much progress and thus they were referred to the wound care center for continued wound healing. He denies N/V/F/chills. He has no further complaints. Subjective Subjective Patient is a 73-year-old male who follows up to the wound care center today for a left lower extremity ulceration. He is accompanied by [id number]-td-axx today. Bdnmumuy-lv-vns is aiding in daily dressing changes consisting of padding and protecting the lateral ankle. He does not keep feet elevated as much as he should according to previous statements by and [id number]. Vunbjbwi-ce-eyk states wound has healed. He denies constitutional symptoms today. Denies further complaints today. Objective Data Objective Data Vital Signs: Vital Signs Temp Pulse Resp BP O2 Del Method 97.5 F L 90 18 128/67 H Room Air 11/28/23 08:09 11/28/23 08:09 11/28/23 08:09 11/28/23 08:09 11/28/23 08:09 Oxygen Delivery Method Room Air Weight: 114.015 kg Body Mass Index (BMI) 31.4 Physical Exam Const alert, oriented x3 and no apparent distress General Appearance: cooperative HEENT normocephalic Eyes General Eye: normal appearance of both eyes Neck General: normal visual inspection Lymph Lymphatic: no lymphadenopathy noted and no lymphedema noted Resp normal respiratory effort Cardio regular rate and regular rhythm Extremity no joint enlargement, no calf tenderness and no pedal edema Extremity Narrative: Vascular: DP pulses palpable and PT pulses weakly palpable bilateral. CFT less than 3 seconds to the digits bilateral. Hair growth absent to digits of foot bilateral. Dermatological: Skin is thin and demonstrating trophic changes bilateral lower extremity. Skin is excessively dry with peeling/flaking consistent with diabeti c autonomic neuropathy and microvascular disease. Ulceration to the anterior aspect overlying the tibial crest remains healed. Ulceration noted to the lateral ankle healed. Area of friable skin medial lower extremity just proximal to medial malleolus remains healed. No signs of infection. Musculoskeletal: Muscle strength 5 of 5 age-appropriate. Decreased ankle range of motion in dorsiflexion with the knee extended without pain or crepitus bilateral. Decreased range of motion of the first metatarsophalangeal joint without pain or crepitus bilateral. There is hammertoe deformity of lesser digits bilateral without pain to palpation. Skin no rashes or lesions noted, skin turgor normal and no jaundice Neuro moves all extremities Debridement Note Debridement Note No debridement was completed: No debridement was completed today Post-Debridement Measurements and Additional Note: Post-Debridement Measurements/Treatment - Nurse 1 - General Ulcer Assessment Start: 11/14/23 08:02 Freq: Status: Active Protocol: WC.LOWEXT Activity Type Activity Date Activity User E-sign Co-sign Detail Recorded Client Recorded Date Recorded By Document 11/14/23 08:03 DS 1 11/14/23 08:05 DS Document 11/28/23 08:09 KW l 11/28/23 08:10 KW 11/14/23 11/28/23 08:03 08:09 - Today's Visit Information Type of service Follow-up Visit Follow-up Visit (Physician/SPRAYER OPERATOR (Physician/SPRAYER OPERATOR ) ) Arrival Mode Ambulatory,Cane Ambulatory,Cane Accompanied by granddaughter Patient Identification Verified (Name & Yes ) Safety Precautions NA Height and Weight Body Mass Index (BMI) 31.4 31.4 BMI Classification Obese Obese Vital Signs Temperature (97.8 F-99.1 F) 98.1 F 97.5 F L Temperature Source Temporal Temporal Pulse Rate (60-100) 92 90 Pulse Location Monitor Monitor Respiratory Rate (12-18) 16 18 Respiratory rate source Observation Observation Oxygen Delivery Method Room Air Room Air Blood Pressure (90/60-120/80) 128/73 H 128/67 H Blood Pressure Mean (mm Hg) 91 87 Source Monitor Monitor Position Sitting Sitting Blood Pressure Location Left Arm Left Arm History Since Last Visit- (Skip if this is Patient's initial visit) Have you changed medications since your No No last visit? Any new allergies or adverse reactions No No Had a fall/change in ADL's that may No No increase risk of falls Signs or symptoms of abuse and/or No No neglect since last visit Have you been in the hospital since your No No last visit? Has dressing in place as prescribed Yes Yes Has compression in place as prescribed No N/A Has offloadiing in place as prescribed No N/A Experienced any changes in pain level or No No management Left Footwear Regular Shoe Regular Shoe Right Footwear Regular Shoe Regular Shoe Pain Scale: 0-10 Numeric Is Patient Pain Free? Yes Yes WC - Nurse 1 - General Ulcer Measurement Start: 11/14/23 08:02 Freq: Status: Active Protocol: Activity Type Activity Date Activity User E-sign Co-sign Detail Recorded Client Recorded Date Recorded By Document 11/14/23 08:03 DS 1 11/14/23 08:05 DS Edit Result 11/14/23 08:03 DS (1) 1 11/14/23 08:05 DS Document 11/28/23 08:09 KW l 11/28/23 08:10 KW (1) Right Calf (cm) => 37.0 Right Ankle (cm) => 22.1 11/14/23 11/28/23 08:03 08:09 Wound Center Nurse 1 #9 LT ANKLE -Current Size (cm) - Length 0.1 0.1 -Current Size (cm) - Width 0.1 0.1 -Current Size (cm) - Depth 0.1 0.1 -Total Square Cm 0.01 0.01 -Date of Last Picture (Recall this 11/28/23 field) -Photo Taken No -Exudate Amt None Present -Wound Margin Distinct, Distinct, Outline Outline Attached Attached -Necrosis Amt Large (67-100%) -Necrotic Tissue Type Adherent Slough -Texture (Jada-wound Skin Appearance) Assessed Assessed -Moisture (Jada-wound Skin Appearance) Assessed Assessed,Dry/ Scaly -Color (Jada-wound Skin Appearance) Assessed Assessed -Temperature (Jada-wound Skin No Abnormality No Abnormality Appearance) (Pt Warm) (Pt Warm) -Tenderness on Palpation (Jada-wound No No Skin Appearance) -Ulcer Cleansing Rinsed/ Soap and Water Irrigated with Saline -Foul Odor after Cleansing No -Anesthetic Used 5% Lidocaine Gel Right Calf (cm) 37.0 Right Ankle (cm) 22.1 - Nurse 2 - General Ulcer CM Notes Start: 11/14/23 08:02 Freq: Status: Active Protocol: Activity Type Activity Date Activity User E-sign Co-sign Detail Recorded Client Recorded Date Recorded By Document 11/14/23 08:32 [facility] 11/14/23 08:36 [facility] 11/14/23 08:32 Wound Center Nurse 2 -Time 08:33 -Correct Patient Yes -Correct Side, Site, Position Yes -Correct Procedure Yes -Procedure Performed Yes -Type of Procedure Debridement -Clinical Debridement Subcutaneous -Tissue Removed Subcutaneous -Post Debridement (cm) - Length 0.5 -Post Debridement (cm) - Width 0.3 -Post Debridement (cm) - Depth 0.1 -Total Square (Post) (cm) 0.15 -Area of Debridement (cm) - Length 0.5 -Area of Debridement (cm) - Width 0.3 -Total Square (Area) (cm) 0.15 -Tunneling No -Undermining/Tunneling No -Circular Undermining No -Wound/Ulcer Outcome Not Healed -Ulcer Cleansing Rinsed/ Irrigated with Saline -Foul Odor after Cleansing No -Bleeding Controlled with Pressure -Treatment Response Procedure Tolerated Well -Debridement - Subq, 1st 20sq cm Yes Pain Scale: 0-10 Numeric Is Patient Pain Free? Yes - Nurse 3 - General Ulcer D/C NN Start: 11/14/23 08:02 Freq: Status: Active Protocol: Activity Type Activity Date Activity User E-sign Co-sign Detail Recorded Client Recorded Date Recorded By Document 11/14/23 08:44 0000 11/14/23 08:45 JF 11/14/23 08:44 Wound Care Center Nurse 3 #9 LT ANKLE -Ulcer Cleansing Rinsed/ Irrigated with Saline -Foul Odor after Cleansing No -Primary Dressing Applied Mepilex Border, Promogran Sunni Matter -Mepilex Border 1 -Promogran Sunni Matter 2 Pain Scale: 0-10 Numeric Is Patient Pain Free? Yes WC - Visit Discharge Discharge Condition Stable Ambulatory Status Ambulatory,Cane Transportation Private Auto Accompanied by caregiver Medication Reconcilliation completed & Yes provided to patient/care provider Clinical Summary of Care Provided Yes Assessment/Plan Assessment/Plan (1) Non-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: CODE(S): L97.322 - Non-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 (2) 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 layer exposed: CODE(S): L97.222 - 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 layer exposed (3) Delayed wound healing: CODE(S): T14.8XXD - Other injury of unspecified body region, subsequent encounter (4) DM type 2 (diabetes mellitus, type 2): CODE(S): E11.9 - Type 2 diabetes mellitus without complications QUALIFIERS: Diabetes mellitus rodent exterminator insulin use: with rodent exterminator use Diabetes mellitus complication status: with other specified complication Qualified Code(s): E11.69 - Type 2 diabetes mellitus with other specified complication; Z79.4 - assisted (current) use of insulin (5) Venous insufficiency of both lower extremities: CODE(S): I87.2 - Venous insufficiency (chronic) (peripheral) (6) Chronic diastolic (congestive) heart failure: CODE(S): I50.32 - Chronic diastolic (congestive) heart failure PLAN: Plan Patient seen and evaluated I reviewed his previous treatment history by PCP. Patient had followed Dr. Anderson. Ulceration to the left anterior lower extremity remains healed. No signs of infection. Left lateral ankle ulceration remains healed. He has finished all 10 applications of EpiFix graft. Discussed padding and protecting the site for the next 15 to 20 days to discourage recidivism as patient does have a habit of running into objects and creating new wounds. LEAS ordered due to delayed healing of the anterolateral ankle wound and performed 07/23/2023. LEAS demonstrates triphasic Doppler waveforms at ankle level bilaterally with PVR satisfactory at all levels bilaterally. Resting FERMÍN indices normal bilateral. Digital brachial indices normal bilateral. No evidence of significant arterial occlusive disease of lower extremities. Discussed continued diabetic diet to ensure proper glucose control. Recent A1c 6.4%. Discussed that this is a good standing for control of his diabetes and will aid in wound healing. Discussed with to aid in daily foot checks as her is blind. Discussed wearing shoe gear at all times and to never go barefoot. Socks include barefoot. They voiced understanding of this today. Recommend continued follow-up with PCP for continued diabetic management. Discussed adequate protein intake to continue to aid in wound healing. Also discussed Negrito supplementation to aid in wound healing. Discussed signs and symptoms with the pertaining to infection. Discussed if she notices increasing redness about the wound margin spreading up the leg, any purulent drainage from the wound site, increasing foul odor from the wound, or if he experiences fever greater than 101 degree, nausea, vomiting, chills that these are signs of progressing infection and he needs to report to the ED. They voiced understanding of this today. The following work up and care recommendations were made: Dressing: Pad and protect for next 15 to 20 days Wash: Soap and water Tissue growth optimization: None Offload: Ensure anterior leg is not bumped and discussed no picking at skin sites. Vascular: DP and PT pulses palpable with adequate capillary fill time. However skin demonstrates trophic changes consistent with microvascular disease. Edema: No edema currently, has history of chronic venous stasis. Recommend continued compression stocking. Infection: No signs of infection. Pain: May take ldje-qov-fmijyuz Tylenol extra strength for discomfort. Host factors: DM type II, chronic venous stasis, CHF, COPD, blindness At this time his wound is healed and he is being discharged from the wound care center today. I answered all the patient's questions. To return to the wound healing center as needed or call sooner if the patient has any questions or concerns.
== END 2023-11-28 15:27 | disposition home or self-care (01) ==
LOC: WC 08:00
PROVIDERS: PCP Family Medicine; Referring Provider Family Medicine; Visit Provider Student in an Organized Health Care Education/Training Program
DX: E11.622 Type 2 diabetes mellitus with other skin ulcer (principal); L97.322 Non-pressure 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 layer exposed; I11.0 Hypertensive heart disease with heart failure; I50.32 Chronic diastolic (congestive) heart failure; J44.9 Chronic obstructive pulmonary disease, unspecified; I48.91 Unspecified atrial fibrillation; E11.59 Type 2 diabetes mellitus with other circulatory complications; E11.40 Type 2 diabetes mellitus with diabetic neuropathy, unspecified; I87.2 Venous insufficiency (chronic) (peripheral); E78.5 Hyperlipidemia, unspecified; M20.41 Other hammer toe(s) (acquired), right foot; M20.42 Other hammer toe(s) (acquired), left foot
CPT/HCPCS: 11042; 99213; G0463

== ENCOUNTER → 2023-12-23 | Outpatient (CLI) | payer MEDICARE, OTHER, SELFPAY ==
[2023-12-23 15:17] LABS: Absolute Lymphocyte Count 2.11 X10^3/uL (0.83-4.51); Absolute Neutrophil Count 3.6 X10^3/uL (2.0-7.7); Basophil# 0.03 X10^3/uL; Basophil% 0.5 % (0-1); Eosinophil# 0.11 X10^3/uL; Eosinophils% 1.7 % (0-5); Hemoglobin 12.4 g/dL (13.0-16.5); Lymphocyte # 2.11 X10^3/ul (0.83-4.51); Lymphocyte % 32.2 % (19-41); Mean Corp Hgb Conc 31.8 g/dL (32-36); Mean Corpuscular Hgb 30.8 pg (27.0-32.0); Mean Corpuscular Volume 96.8 fL (80-94); Mean Platelet Vol. 14.4 fl (6.2-12.0); Monocyte# 0.67 X10^3/uL; Monocyte% 10.2 % (0-10); NRBC Flagged by Analyzer 0 % (0-5); Neutrophil # 3.59 X10^3/uL (2.7-7.7); Neutrophil % 54.8 % (47-70); POSITIVE COUNT YES; RBC Distribution Width CV 13.7 % (11.6-14.6); RBC Distribution Width SD 49.1 fl (35.1-43.9); Red Blood Count 4.03 M/mm3 (4.6-6.2); White Blood Count 6.6 K/mm3 (4.4-11.0)
[2023-12-23 15:34] LABS: Vitamin D,25 Hydroxy 36.4 ng/mL
[2023-12-23 15:44] LABS: ALB/GLOB Ratio 0.8 RATIO (0.9-2.4); AST(SGOT) 15 U/L (15-37); Alanine Aminotransfer ALT/SGPT 25 U/L (16-61); Albumin, Serum 3.2 g/dL (3.2-5.0); Alkaline Phosphatase 78 U/L (45-117); Anion Gap 4 (5-15); BUN 21 mg/dL (7-18); Calcium,Total 9.3 mg/dL (8.5-10.1); Chloride 105 mmol/L (98-107); Creatinine, Serum 0.91 mg/dL (0.70-1.30); EST Glomerular Filtration Rate 86 mL/min (>60); Est Glom Filt Rate - Afr Amer 104 mL/min (>60); Globulin 4.1 g/dL (2.2-4.2); Glucose 232 mg/dL (74-106); Magnesium 2.1 mg/dL (1.6-2.6); Potassium 4.3 mmol/L (3.5-5.1); Protein, Total 7.3 g/dL (6.4-8.2); Sodium Level 138 mmol/L (136-145)
== END | disposition home or self-care (01) ==
LOC: MFPLAB 11:31
PROVIDERS: PCP Family Medicine; Visit Provider Family Medicine
DX: I48.91 Unspecified atrial fibrillation (principal); E11.49 Type 2 diabetes mellitus with other diabetic neurological complication; E55.9 Vitamin D deficiency, unspecified
CPT/HCPCS: 36415; 80053; 82306; 83735; 85025

== ENCOUNTER 2024-03-22 10:05 | Emergency (ER) | payer MEDICARE, OTHER, SELFPAY ==
[2024-03-22 10:05] VITALS: BP 108/90; PULSE 70; RESP 22; TEMP 35.9; O2SAT 99; BMI 29.9
--- NOTE | 2024-03-22 11:34 | EDS_ITS ---
HPI History of Present Illness Chief Complaint: Shortness of Breath Narrative Narrative: Chief complaint and HPI: Cough. 73-year-old male with history of COPD, CHF, HTN, HLD, DM, atrial fibrillation on Xarelto presents for evaluation of cough and left arm pain. Patient has a chronic pinched nerve in his left arm. He states that he woke up with left arm pain on Saturday. It is intermittent. He describes it as sharp and in the muscle of his upper arm. 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 Patient states for the past several weeks he has had increasing cough. He denies any fever, chills, chest pain, abdominal pain, nausea, vomiting. He states that he does have some nasal congestion. Patient states he wanted to be evaluated for bronchitis. On chart review, patient follows with Dr. Cameron. He has an EF of 55% to this was on echocardiogram in February 2020. Patient denies any bilateral lower extremity swelling or pain. Denies any actual shortness of breath. Review of systems: See HPI Medications: As listed on the chart Allergies: As listed on the chart PFSH: Per chart Vital signs: As listed on the chart. Reviewed. Physical exam: Gen: A&O x3, NAD Head: Normocephalic, atraumatic Eyes: No sclera icterus, conjunctiva clear ENT: Moist mucous membranes Neck: Trachea midline, No JVD CV: Regular rate, irregular rhythm, no murmurs, no peripheral edema Resp: Lungs CTA BL, no w/r/c GI: Abd soft, non-distended, non-tender, no r/r/g Musc: Full ROM, no deformity Skin: Warm, dry Neuro: Alert, oriented, grossly intact, sensation intact Psych: Cooperative, appropriate mood and affect [facility] Medical History Wears dentures Blind Depression Thyroid disease Insulin dependent diabetes mellitus Diabetes Ambulates with cane Anemia High cholesterol Injury of head and neck Former smoker Shortness of breath on exertion History of edema History of Holter monitoring History of echocardiogram Cardiology follow-up encounter History of atrial fibrillation Infected cyst of skin Open wound of back without complication Venous insufficiency of both lower extremities Ulcer of left lower extremity with fat layer exposed Longstanding persistent atrial fibrillation Left ventricular diastolic dysfunction Chronic diastolic (congestive) heart failure Right bundle branch block (RBBB) Essential (primary) hypertension COPD (chronic obstructive pulmonary disease) Anxiety and depression Obesity (BMI 30-39.9) Hyperlipidemia Hypothyroidism DM type 2 (diabetes mellitus, type 2) Poorly controlled type 2 diabetes mellitus Sepsis Head trauma Hx of transfusion of whole blood Back problem Home Medications ?Medication ?Instructions ?Recorded ?Last Taken ?Type pravastatin 40 mg tablet 40 mg PO QHS cholesterol 07/30/14 02/12/20 16:30 History rivaroxaban 20 mg tablet (Xarelto) 10 mg PO DINNER blood thinner 08/16/19 01/02/22 History metformin 500 mg tablet,extended 1,000 mg PO DAILY 03/02/20 Unknown History release 24 hr insulin glargine 100 unit/mL 10 unit subcut 0800 10/05/21 Unknown History subcutaneous solution (Lantus U-100 Insulin) PEP device #1 ea 11/14/21 Unknown Rx levothyroxine 150 mcg tablet 150 mcg PO DAILY 11/14/21 01/05/22 History cholecalciferol (vitamin D3) 25 25 mcg PO DAILY 01/02/22 Unknown History mcg (1,000 unit) capsule (Vitamin D3) ferrous sulfate 325 mg (65 mg 325 mg PO DAILY 01/02/22 Unknown History iron) tablet tramadol 50 mg tablet 50 mg PO Q6H PRN pain #14 tabs 01/05/22 Unknown Rx albuterol sulfate 90 mcg/actuation 2 puff inhalation Q6H PRN 09/10/22 Unknown Rx aerosol inhaler shortness of breath or wheezing #8.5 grams insulin lispro 100 unit/mL 12 unit subcut BID 09/10/22 Unknown History subcutaneous pen (Humalog KwikPen (U-100) Insulin) furosemide 40 mg tablet 40 mg PO .twice weekly 03/13/23 Unknown History venlafaxine 75 mg capsule,extended 225 mg PO QAM 07/09/23 Unknown History release 24 hr Allergy/AdvReac Type Severity Reaction Status Date / Time shellfish derived Allergy Hives Verified 03/22/24 10:25 Family History Mother Cancer Surgical History Hx of excision of dermoid cyst (~01/2022) Hx of cataract surgery History of inguinal hernia repair H/O hernia repair Social History Smoking Status: Former smoker quit date: 06/03/09 second hand exposure: No alcohol intake: never substance use type: does not use EXAM Physical Exam Const Vital Signs: 03/22/24 10:05 03/22/24 10:23 03/22/24 12:00 Temperature 96.7 F L Temperature Source Temporal Pulse Rate 70 62 Respiratory Rate 22 H 19 H Respiratory Effort Normal Non-Labored Respiratory Depth Normal Respiratory Pattern Normal Blood Pressure 108/90 H 130/71 H Blood Pressure Mean 96 90 Pulse Ox 99 Oxygen Delivery Method Room Air Room Air 03/22/24 15:05 Temperature 96.7 F L Temperature Source Pulse Rate 63 Respiratory Rate 17 Respiratory Effort Respiratory Depth Respiratory Pattern Blood Pressure 139/86 H Blood Pressure Mean 103 Pulse Ox 99 Oxygen Delivery Method MDM MDM MDM Narrative Medical decision making narrative: 73-year-old male presents for evaluation of cough and left sharp upper arm pain that is intermittent. Differential diagnosis includes but is not limited to left arm strain, viral illness, pneumonia, COPD exacerbation, CHF exacerbation. I suspect less likely ACS as patient is not endorsing chest pain and his left upper arm pain is sharp and in the muscle only. Respiratory/cardiac workup ordered. EKG and chest x-ray reviewed see below. CBC without leukocytosis. Patient has baseline anemia. BMP unremarkable without KYLEIGH. BNP mildly elevated at 118.9. Patient is not fluid overloaded on exam or chest x-ray. Original troponin 81. Repeat 74. COVID, flu, RSV negative. On reevaluation, patient is denying chest pain. He denies radiation of a sharp left upper arm pain into the chest. Low suspicion for ACS. Patient was updated on all his results and confirmed understanding of the plan. Patient's cough may be secondary to his known COPD versus early viral illness. He was told to follow-up with his PCP. He confirmed understand the plan. Patient is about discharge home EKG: Interpreted by me/EM physician: EKG shows atrial fibrillation with known right bundle branch block. No acute ischemic changes. Heart rate 62. Diagnostic: Interpreted by me/EM physician: Chest x-ray without pneumonia, pneumothorax, large effusion Impression: 1. Left upper arm strain 2. Cough with history of COPD Lab Data Labs: Laboratory Results - last 24 hr 03/22/24 03/22/24 11:45 14:00 WBC 5.3 RBC 3.60 L Hgb 11.2 L Hct 34.9 L MCV 96.9 H MCH 31.1 MCHC 32.1 RDW Std Deviation 50.2 H RDW Coeff of Marifer 14.1 Plt Count MPV TNP Immature Gran % (Auto) 0.800 Neut % (Auto) 54.2 Lymph % (Auto) 32.2 [place] % (Auto) 10.5 H Eos % (Auto) 2.1 Baso % (Auto) 0.2 Absolute Neuts (auto) 2.9 Absolute Lymphs (auto) 1.71 Nucleated RBC % 0 Differential Comment SCANNED Platelet Estimate ADEQUATE Sodium 141 Potassium 3.5 Chloride 107 Carbon Dioxide 30.0 Anion Gap 4 L BUN 18 Creatinine 0.71 Estim Creat Clear Calc 106.35 Est GFR (MDRD) Af Amer 139 Est GFR (MDRD) Non-Af 115 BUN/Creatinine Ratio 25.4 H Glucose 160 H Calcium 9.2 Troponin I High Sens 81 H 74 B-Natriuretic Peptide 118.9 H Radiography Diagnostic Testing: Clinical Impression(s) from Imaging Studies Chest X-Ray 03/22/24 11:51 IMPRESSION: No radiographic evidence of acute cardiopulmonary disease. Electronically Signed: Xander Angeles MD at 12:35 EDT , Discharge Plan Triage Chief Complaint: Shortness of Breath Other Complaint: Upper Extremity Injury ED Provider: Jose Bliss Dx/Rx/DC Orders Clinical Impression: Cough, Muscle strain of left upper arm Instructions: ED RICE Prescriptions: No Action metformin 500 mg tablet extended release 24 hr 1,000 mg PO DAILY Patient Comments: TAKE 2 TABLETS EVERY DAY levothyroxine 150 mcg tablet 150 mcg PO DAILY (DME) PEP device See Rx Instructions .Route .MEDSUPPLY Qty: 1 0RF Rx Instructions: with training venlafaxine 75 mg capsule,extended release 24hr 225 mg PO QAM furosemide 40 mg tablet 40 mg PO .twice weekly albuterol sulfate 90 mcg/actuation HFA aerosol inhaler 2 puff inhalation Q6H PRN (Reason: shortness of breath or wheezing) Qty: 8.5 1RF pravastatin 40 MG tablet 40 mg PO QHS Xarelto 20 MG tablet 10 mg PO DINNER insulin glargine [Lantus U-100 Insulin] 100 unit/mL Solution 10 unit SUBCUT 0800 insulin lispro [Humalog KwikPen Insulin] 100 unit/mL insulin pen 12 unit SUBCUT BID ferrous sulfate 325 mg (65 mg iron) Tablet 325 mg PO DAILY cholecalciferol (vitamin D3) [Vitamin D3] 25 mcg (1,000 unit) Capsule 25 mcg PO DAILY tramadol 50 mg tablet 50 mg PO Q6H PRN (Reason: pain) Qty: 14 0RF Primary Care Provider: Raffaele Olguin Referrals: Raffaele Olguin MD [Primary Care Provider] - 3-5 Days Activity Restrictions/Additional Instructions: Return back to the ED if symptoms change or worsen Print Language: Iraqi Disposition Disposition: Home, Self Care Discharge Date/Time: 03/22/24 15:06
--- NOTE | 2024-03-22 11:51 | RAD_ITS ---
INDICATION: Cough EXAMINATION/TECHNIQUE: X-RAY - XR Chest 2 Views COMPARISON: Prior study dated: 05/13/2023 FINDINGS: LINES/DEVICES: None. LUNGS: Elevation of the left hemidiaphragm unchanged. No focal infiltrate is seen. No evidence of pleural effusions. MEDIASTINUM AND CARDIOVASCULAR STRUCTURES: Cardiac silhouette not enlarged. Central airways and mediastinal contour are unremarkable. BONES AND SOFT TISSUES: Unremarkable. RAD/Chest PA and Lateral IMPRESSION: No radiographic evidence of acute cardiopulmonary disease. Electronically Signed: Xander Angeles MD at 12:35 EDT ,
[2024-03-22 12:00] VITALS: BP 130/71; PULSE 62; RESP 19
[2024-03-22 12:06] LABS: Absolute Lymphocyte Count 1.71 X10^3/uL (0.83-4.51); Absolute Neutrophil Count 2.9 X10^3/uL (2.0-7.7); Basophil# 0.01 X10^3/uL; Basophil% 0.2 % (0-1); Eosinophil# 0.11 X10^3/uL; Eosinophils% 2.1 % (0-5); Hematocrit 34.9 % (40-54); Hemoglobin 11.2 g/dL (13.0-16.5); Lymphocyte # 1.71 X10^3/ul (0.83-4.51); Lymphocyte % 32.2 % (19-41); Mean Corp Hgb Conc 32.1 g/dL (32-36); Mean Corpuscular Hgb 31.1 pg (27.0-32.0); Mean Corpuscular Volume 96.9 fL (80-94); Monocyte# 0.56 X10^3/uL; Monocyte% 10.5 % (0-10); NRBC Flagged by Analyzer 0 % (0-5); Neutrophil # 2.88 X10^3/uL (2.7-7.7); Neutrophil % 54.2 % (47-70); POSITIVE COUNT YES; RBC Distribution Width CV 14.1 % (11.6-14.6); RBC Distribution Width SD 50.2 fl (35.1-43.9); White Blood Count 5.3 K/mm3 (4.4-11.0)
[2024-03-22 12:14] LABS: Anion Gap 4 (5-15); BUN 18 mg/dL (7-18); BUN/Creat Ratio 25.4 RATIO (10-20); Calcium,Total 9.2 mg/dL (8.5-10.1); Chloride 107 mmol/L (98-107); Creatinine, Serum 0.71 mg/dL (0.70-1.30); EST Glomerular Filtration Rate 115 mL/min (>60); Est Glom Filt Rate - Afr Amer 139 mL/min (>60); Estimated Creatinine Clearance 106.35 ml/min; Glucose 160 mg/dL (74-106); Potassium 3.5 mmol/L (3.5-5.1); Sodium Level 141 mmol/L (136-145); Troponin-I HS (w/2H Reflex) 81 pg/mL (3.0-78.0)
[2024-03-22 12:39] LABS: BNP,B-Type NATRIURETIC PEPTIDE 118.9 pg/mL (0-100)
[2024-03-22 12:53] LABS: Differential Comment SCANNED; Differential Indicated SCAN CRITERIA MET
[2024-03-22 12:54] LABS: Platelet Estimate ADEQUATE (ADEQ)
[2024-03-22 13:51] LABS: Reflex Troponin-HS? (from REC) Y
[2024-03-22 14:22] LABS: Troponin-I HS 74 pg/mL (3.0-78.0)
[2024-03-22 15:05] VITALS: BP 139/86; PULSE 63; RESP 17; TEMP 35.9; O2SAT 99
== END 2024-03-22 15:06 | disposition home or self-care (01) ==
PROVIDERS: Emergency Provider Surgery; PCP Family Medicine; Visit Provider Surgery
DX: R05.9 Cough, unspecified (principal); I11.0 Hypertensive heart disease with heart failure; I50.32 Chronic diastolic (congestive) heart failure; J44.9 Chronic obstructive pulmonary disease, unspecified; Z79.4 Long term (current) use of insulin; S46.912A Strain of unspecified muscle, fascia and tendon at shoulder and upper arm level, left arm, initial encounter; Z87.891 Personal history of nicotine dependence; E78.00 Pure hypercholesterolemia, unspecified; Z79.51 Long term (current) use of inhaled steroids; Z79.899 Other long term (current) drug therapy; Z79.84 Long term (current) use of oral hypoglycemic drugs; Z79.01 Long term (current) use of anticoagulants; X58.XXXA Exposure to other specified factors, initial encounter
CPT/HCPCS: 71046; 80048; 83880; 84484; 85025; 87631; 93005; 99285; A4216

== ENCOUNTER 2024-05-25 18:00 | Emergency (ER) | payer MEDICARE, OTHER, SELFPAY ==
[2024-05-25 18:00] VITALS: BP 132/93; PULSE 62; RESP 20; TEMP 35.7; O2SAT 97
--- NOTE | 2024-05-25 19:05 | CT_ITS ---
INDICATION: Back pain, fall EXAMINATION: CT LUMBAR SPINE - CT Spine Lumbar W/O Contrast Injection TECHNIQUE: Helically acquired images were obtained of the lumbar spine. 2D reformats were reviewed. A radiation dose optimization technique was used for this scan. IV Contrast dosage and agent: None. COMPARISON: None. FINDINGS: VERTEBRAE: Severe compression deformities of T11, T12, L2, L3, L4 and L5. Status post vertebral augmentation of T11, L2 and L3. No discrete lytic or blastic abnormality observed. There is 3 mm retrolisthesis L2 on L3. DISCS and SPINAL CANAL: Severe multilevel degenerative disc disease and spondylosis. No critical stenosis. VISUALIZED ABDOMEN: Visualized abdominal aorta is not dilated. There is no retroperitoneal adenopathy. CT/Spine Lumbar without Contrast IMPRESSION: Severe compression deformities of T11, T12, L2, L3, L4 and L5. Status post vertebral augmentation of T11, L2 and L3. Grade 1 retrolisthesis L2 on L3. Electronically Signed: Jaden Jack MD at 20:14 EST ,
--- NOTE | 2024-05-25 19:08 | EDS_ITS ---
HPI HPI - Fall History of Present Illness Chief Complaint: Fall Narrative Narrative: Chief complaint and HPI: Lumbar back pain. 74-year-old male presents for evaluation of lumbar back pain after a mechanical fall. Patient states that he lost his balance while walking in the living room. He states that he fell onto his butt and back. He was able to ambulate after the fall but endorses lower lumbar back pain. He denies hitting his head and no LOC. He denies any fever, chills, shortness of breath, chest pain, abdominal pain, nausea, vomiting, numbness/tingling, weakness. Denies any symptoms prior to the fall. States it was purely mechanical fall. Review of systems: See HPI Medications: As listed on the chart Allergies: As listed on the chart PFSH: Per chart Vital signs: As listed on the chart. Reviewed. 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, no deformity, no spinal TTP, no kimberly step- offs, patient has tenderness to palpation of the bilateral paraspinal musculature of the lower lumbar spine-no obvious signs of trauma Skin: Warm, dry, intact Neuro: Alert, oriented, grossly intact, sensation intact, GCS 15 Psych: Cooperative, appropriate mood and affect [facility] Medical History Wears dentures Blind Depression Thyroid disease Insulin dependent diabetes mellitus Diabetes Ambulates with cane Anemia High cholesterol Injury of head and neck Former smoker Shortness of breath on exertion History of edema History of Holter monitoring History of echocardiogram Cardiology follow-up encounter History of atrial fibrillation Infected cyst of skin Open wound of back without complication Venous insufficiency of both lower extremities Ulcer of left lower extremity with fat layer exposed Longstanding persistent atrial fibrillation Left ventricular diastolic dysfunction Chronic diastolic (congestive) heart failure Right bundle branch block (RBBB) Essential (primary) hypertension COPD (chronic obstructive pulmonary disease) Anxiety and depression Obesity (BMI 30-39.9) Hyperlipidemia Hypothyroidism DM type 2 (diabetes mellitus, type 2) Poorly controlled type 2 diabetes mellitus Sepsis Head trauma Hx of transfusion of whole blood Back problem Home Medications ?Medication ?Instructions ?Recorded ?Last Taken ?Type pravastatin 40 mg tablet 40 mg PO QHS cholesterol 07/30/14 02/12/20 16:30 History rivaroxaban 20 mg tablet (Xarelto) 10 mg PO DINNER blood thinner 08/16/19 01/02/22 History metformin 500 mg tablet,extended 1,000 mg PO DAILY 03/02/20 Unknown History release 24 hr insulin glargine 100 unit/mL 10 unit subcut 0800 10/05/21 Unknown History subcutaneous solution (Lantus U-100 Insulin) PEP device #1 ea 11/14/21 Unknown Rx levothyroxine 150 mcg tablet 150 mcg PO DAILY 11/14/21 01/05/22 History cholecalciferol (vitamin D3) 25 25 mcg PO DAILY 01/02/22 Unknown History mcg (1,000 unit) capsule (Vitamin D3) ferrous sulfate 325 mg (65 mg 325 mg PO DAILY 01/02/22 Unknown History iron) tablet tramadol 50 mg tablet 50 mg PO Q6H PRN pain #14 tabs 01/05/22 Unknown Rx albuterol sulfate 90 mcg/actuation 2 puff inhalation Q6H PRN 09/10/22 Unknown Rx aerosol inhaler shortness of breath or wheezing #8.5 grams insulin lispro 100 unit/mL 12 unit subcut BID 09/10/22 Unknown History subcutaneous pen (Humalog KwikPen (U-100) Insulin) furosemide 40 mg tablet 40 mg PO .twice weekly 03/13/23 Unknown History venlafaxine 75 mg capsule,extended 225 mg PO QAM 07/09/23 Unknown History release 24 hr Allergy/AdvReac Type Severity Reaction Status Date / Time shellfish derived Allergy Hives Verified 03/22/24 10:25 Family History Mother Cancer Surgical History Hx of excision of dermoid cyst (~01/2022) Hx of cataract surgery History of inguinal hernia repair H/O hernia repair Social History Smoking Status: Former smoker quit date: 06/03/09 second hand exposure: No alcohol intake: never substance use type: does not use EXAM Physical Exam Const Vital Signs: 05/25/24 18:00 05/25/24 18:07 05/25/24 20:00 Temperature 96.2 F L Temperature Source Temporal Pulse Rate 62 71 Respiratory Rate 20 H 18 Respiratory Effort Normal Non-Labored Respiratory Depth Normal Respiratory Pattern Normal Blood Pressure 132/93 H Blood Pressure Mean 106 Pulse Ox 97 95 Oxygen Delivery Method Room Air Room Air Room Air MDM MDM MDM Narrative Medical decision making narrative: 74-year-old male presents for evaluation of lumbar back pain after a mechanical fall. Differential diagnosis includes but is not limited to lumbar back strain, muscle spasm, contusion, fracture. Patient was offered pain medicine and declined. Given his and age we will get CT lumbar spine to assess for fracture. I do not think any laboratory or further imaging is needed at this time given that this was a purely mechanical fall. CT of the lumbar spine shows severe compression deformities of T11-L5. Patient is status post vertebral augmentation of T11, L2, and L3. He has grade 1 retrolisthesis of L2 on L3. I reviewed this imaging myself and these compression deformities appear chronic. I did speak with the radiologist who agrees that these fractures are chronic in nature and will add addendum to radiology read. On reevaluation, patient is able to ambulate in the emergency department. Pain is controlled. Patient's pain is likely secondary to a lumbar back strain versus contusion. Tylenol as needed for pain. Follow-up with PCP. Return precautions explained. He confirmed understand the plan. Impression: 1. Lumbar back strain 2. Mechanical fall Radiography Diagnostic Testing: Clinical Impression(s) from Imaging Studies Lumbar Spine CT 05/25/24 19:05 IMPRESSION: Severe compression deformities of T11, T12, L2, L3, L4 and L5. Status post vertebral augmentation of T11, L2 and L3. Grade 1 retrolisthesis L2 on L3. Electronically Signed: Jaden Jack MD at 20:14 EST , ADDENDUM: 05/25/242052 IMPRESSION: undefined Discharge Plan Triage Chief Complaint: Fall ED Provider: Jose Bliss Dx/Rx/DC Orders Clinical Impression: Back strain Instructions: Treating?Strains and Sprains, ED Mechanical Fall Prescriptions: No Action metformin 500 mg tablet extended release 24 hr 1,000 mg PO DAILY Patient Comments: TAKE 2 TABLETS EVERY DAY levothyroxine 150 mcg tablet 150 mcg PO DAILY (DME) PEP device See Rx Instructions .Route .MEDSUPPLY Qty: 1 0RF Rx Instructions: with training venlafaxine 75 mg capsule,extended release 24hr 225 mg PO QAM furosemide 40 mg tablet 40 mg PO .twice weekly albuterol sulfate 90 mcg/actuation HFA aerosol inhaler 2 puff inhalation Q6H PRN (Reason: shortness of breath or wheezing) Qty: 8.5 1RF pravastatin 40 MG tablet 40 mg PO QHS Xarelto 20 MG tablet 10 mg PO DINNER insulin glargine [Lantus U-100 Insulin] 100 unit/mL Solution 10 unit SUBCUT 0800 insulin lispro [Humalog KwikPen Insulin] 100 unit/mL insulin pen 12 unit SUBCUT BID ferrous sulfate 325 mg (65 mg iron) Tablet 325 mg PO DAILY cholecalciferol (vitamin D3) [Vitamin D3] 25 mcg (1,000 unit) Capsule 25 mcg PO DAILY tramadol 50 mg tablet 50 mg PO Q6H PRN (Reason: pain) Qty: 14 0RF Primary Care Provider: Raffaele Olguin Referrals: Raffaele Olguin MD [Primary Care Provider] - 3-5 Days Activity Restrictions/Additional Instructions: Tylenol as needed for pain. Follow-up with your primary care physician Print Language: Spanish Disposition Disposition: Home, Self Care Discharge Date/Time: 05/25/24 21:15
[2024-05-25 20:00] VITALS: PULSE 71; RESP 18; O2SAT 95
== END 2024-05-25 21:15 | disposition home or self-care (01) ==
PROVIDERS: Emergency Provider Surgery; PCP Family Medicine; Visit Provider Surgery
DX: S39.012A Strain of muscle, fascia and tendon of lower back, initial encounter (principal); J44.9 Chronic obstructive pulmonary disease, unspecified; Z87.891 Personal history of nicotine dependence; W19.XXXA Unspecified fall, initial encounter
CPT/HCPCS: 72131; 99282

== ENCOUNTER 2024-06-24 09:45 | Inpatient (IN) | payer MEDICARE, OTHER, SELFPAY ==
[2024-06-24] VITALS (28 sets, daily range): BP systolic 79–135; BP diastolic 51–88; PULSE 39–78; RESP 11–24; TEMP 35.9–36.9; O2SAT 91–100; BMI 29.9; BMI 29.8
--- NOTE | 2024-06-24 09:59 | EKG12_ITS ---
Test Reason : AM Blood Pressure : */* mmHG Vent. Rate : 90 BPM Atrial Rate : * BPM P-R Int : * ms QRS Dur : 148 ms QT Int : 398 ms P-R-T Axes : * -31 16 degrees QTcB Int : 486 ms Atrial fibrillation with premature ventricular or aberrantly conducted complexes Left axis deviation Right bundle branch block Abnormal ECG When compared with ECG of 24-Jun-2024 10:11, MANUAL COMPARISON REQUIRED DATA IS UNCONFIRMED Confirmed by BECKIE BLAS, TONY ([id number]), food editor DEMETRIA PENA ([id number]) on 06/29/2024 2:04:12 PM Referred By: Confirmed By: TONY BUTTS MD
--- NOTE | 2024-06-24 09:59 | RAD_ITS ---
STUDY: X-RAY CHEST REASON FOR EXAM: Male, 74 years old. Chest pain TECHNIQUE: Single AP portable view of the chest. COMPARISON: 03/22/2024 FINDINGS: EKG leads overlie the chest. Stable elevation of left hemidiaphragm Lungs are expanded with persistent opacifications in both lung gaytan and compressive atelectasis in the left lung base. No interval change Normal size heart. Normal mediastinum and jewel. Normal visualized pulmonary arteries. Normal visualized aortic arch and descending thoracic aorta. There are diffuse degenerative changes of the visualized thoracic spine. Normal visualized ribs, clavicles, and shoulders. There is no demonstrated abnormality of the visualized soft tissue structures of the upper abdomen. RAD/Chest 1 View (Portable) IMPRESSION: No interval change Electronically Signed: Adiel Garcia MD at 10:29 EST ,
--- NOTE | 2024-06-24 10:08 | EX.ED.CRITCA ---
HPI History of Present Illness Chief Complaint: CPR Detail of Chief Complaint: Cardiac arrest Informant: patient and family Narrative Narrative: Patient presents to the ER via EMS from home. Patient apparently had just taken his insulin and he sat down to breakfast when he slumped over and became unresponsive. Family started CPR and EMS was called. On EMS arrival patient was thought to be in PEA and was given a shock with 200 J. Patient had CPR continued and brought to the emergency department. On arrival he is ANO x 3 and complaining of chronic pain in his low back and some discomfort in his chest with breathing. states she called EMS yesterday because he had a choking spell but everything seemed to resolve and they did not bring him into the emergency department. Patient has history of A-fib. Patient on Xarelto. [facility] Medical History Wears dentures Blind Depression Thyroid disease Insulin dependent diabetes mellitus Diabetes Ambulates with cane Anemia High cholesterol Injury of head and neck Former smoker Shortness of breath on exertion History of edema History of Holter monitoring History of echocardiogram Cardiology follow-up encounter History of atrial fibrillation Infected cyst of skin Open wound of back without complication Venous insufficiency of both lower extremities Ulcer of left lower extremity with fat layer exposed Longstanding persistent atrial fibrillation Left ventricular diastolic dysfunction Chronic diastolic (congestive) heart failure Right bundle branch block (RBBB) Essential (primary) hypertension COPD (chronic obstructive pulmonary disease) Anxiety and depression Obesity (BMI 30-39.9) Hyperlipidemia Hypothyroidism DM type 2 (diabetes mellitus, type 2) Poorly controlled type 2 diabetes mellitus Sepsis Head trauma Hx of transfusion of whole blood Back problem Home Medications ?Medication ?Instructions ?Recorded ?Last Taken ?Type pravastatin 40 mg tablet 40 mg PO QHS cholesterol 07/30/14 02/12/20 16:30 History rivaroxaban 20 mg tablet (Xarelto) 10 mg PO DINNER blood thinner 08/16/19 01/02/22 History metformin 500 mg tablet,extended 1,000 mg PO DAILY 03/02/20 Unknown History release 24 hr insulin glargine 100 unit/mL 10 unit subcut 0800 10/05/21 Unknown History subcutaneous solution (Lantus U-100 Insulin) PEP device #1 ea 11/14/21 Unknown Rx levothyroxine 150 mcg tablet 150 mcg PO DAILY 11/14/21 01/05/22 History cholecalciferol (vitamin D3) 25 25 mcg PO DAILY 01/02/22 Unknown History mcg (1,000 unit) capsule (Vitamin D3) ferrous sulfate 325 mg (65 mg 325 mg PO DAILY 01/02/22 Unknown History iron) tablet tramadol 50 mg tablet 50 mg PO Q6H PRN pain #14 tabs 01/05/22 Unknown Rx albuterol sulfate 90 mcg/actuation 2 puff inhalation Q6H PRN 09/10/22 Unknown Rx aerosol inhaler shortness of breath or wheezing #8.5 grams insulin lispro 100 unit/mL 12 unit subcut BID 09/10/22 Unknown History subcutaneous pen (Humalog KwikPen (U-100) Insulin) furosemide 40 mg tablet 40 mg PO .twice weekly 03/13/23 Unknown History venlafaxine 75 mg capsule,extended 225 mg PO QAM 07/09/23 Unknown History release 24 hr venlafaxine 225 mg tablet,extended 225 mg PO DAILY 06/24/24 Unknown History release 24 hr Allergy/AdvReac Type Severity Reaction Status Date / Time shellfish derived Allergy Hives Verified 03/22/24 10:25 Family History Mother Cancer Surgical History Hx of excision of dermoid cyst (~01/2022) Hx of cataract surgery History of inguinal hernia repair H/O hernia repair Social History Smoking Status: Former smoker quit date: 06/03/09 second hand exposure: No alcohol intake: never substance use type: does not use ROS ROS ED ROS Narrative Unresponsive episode with CPR and cardioversion with 200 J Review of Systems ROS Unobtainable: other Constitutional Constitutional ED: Reports lethargy; Denies chills, fever(s), sweats or weight loss Eyes Eyes: Denies blurry vision, change in vision or diplopia ENT ENT ED: Denies rhinorrhea or sore throat Cardiovascular Cardiovascular: Reports chest pain; Denies orthopnea or racing heartbeat Respiratory/Chest Respiratory/Chest: Denies cough, dyspnea, dyspnea on exertion, orthopnea or sputum Gastrointestinal Gastrointestinal: Denies abdominal pain, diarrhea, nausea or vomiting Genitourinary Genitourinary ED: Denies dysuria, hematuria or urinary frequency Musculoskeletal Musculoskeletal: Denies arthralgias, back pain, myalgias or neck pain Integumentary Denies abscess, Abrasions or rash Neurologic Neurologic: Denies headache(s) or weakness Psychiatric Psychiatric: Denies anxiety, depression or suicidal thoughts Endocrine Endocrinology: Denies polydipsia, polyphagia or polyuria Hematologic/Lymphatic Hematologic/Lymphatic: Denies easy bleeding, easy bruising or lymphadenopathy Allergic/Immunologic Allergic/Immunologic ED: Denies mouth swelling, tongue swelling or urticaria EXAM Physical Exam Const Vital Signs: 06/24/24 09:46 06/24/24 09:52 06/24/24 09:58 Temperature 96.7 F L Temperature Source Axillary Pulse Rate 58 L 54 L Respiratory Rate 19 H 14 Respiratory Pattern Normal Blood Pressure 98/60 Blood Pressure Mean 72 Pulse Ox 100 92 Oxygen Delivery Method Non-Rebreather Oxygen Flow Rate (L/min) 10 06/24/24 09:59 06/24/24 10:00 06/24/24 10:15 Temperature Temperature Source Pulse Rate 54 L 43 L Respiratory Rate 20 H 20 H Respiratory Pattern Blood Pressure 79/51 L 81/52 L Blood Pressure Mean 62 62 Pulse Ox 98 100 Oxygen Delivery Method Nasal Cannula Oxygen Flow Rate (L/min) 5 06/24/24 10:30 Temperature Temperature Source Pulse Rate 43 L Respiratory Rate 16 Respiratory Pattern Blood Pressure 86/54 L Blood Pressure Mean 66 Pulse Ox Oxygen Delivery Method Oxygen Flow Rate (L/min) Positive well nourished and well developed General Appearance ED: well developed and NAD HEENT Reports TM's clear and moist mucous membranes normocephalic and atraumatic; Negative for trauma or tenderness Tympanic Membrane ED: Yes TM's clear Eyes PERRL and EOMs intact bilaterally General Eye ED: Negative for pale conjunctiva or scleral icterus Neck no lymphadenopathy, supple and no JVD General: Negative for tenderness Chest Wall inspection of chest normal and palpation of chest normal Chest: Negative for tenderness Resp normal respiratory effort and clear to auscultation bilaterally Effort and Inspection: Negative for respiratory distress or pain with movement Auscultation: Negative for rhonchi, wheezes or diminished lung sounds Cardio regular rate, regular rhythm, S1 normal heart sound, S2 normal heart sound and no murmurs Peripheral Pulses: pulses 2+ throughout GI normal to inspection, nondistended, normoactive bowel sounds, soft to palpation, non-tender, non-distended and no masses Back/Spine no CVA tenderness and no thoracic nor lumbar tenderness Extremity normal to inspection General Extremety ED: Negative for edema General Extremity: Negative for edema Neuro oriented x3, CN's II-XII intact bilaterally, no sensory deficits noted and gait normal Sensorium / Orientation: awake, alert, oriented to person, oriented to place and oriented to time Motor Exam: strength 5/5 throughout and strength abnormal Psych mental status grossly normal Skin no rashes or lesions noted and no wounds MDM MDM MDM Narrative Medical decision making narrative: Patient presented after CPR for unresponsive episode and concern for PEA. He received a 200 J shock and was ANO x 3 on arrival. Marginally hypotensive on arrival. Recent history of choking episode yesterday. IV lines established. He was ordered a liter normal saline fluid bolus followed by second liter and then 1/3 L. CBC with differential obtained showed a white count of 14.1 with hemoglobin 13.2. Chemistries unremarkable. Troponin elevated at 109. EKG obtained on arrival showed a atrial fibrillation with rate of 49 bpm with occasional PVCs. I discussed case with cardiology and they recommended admission for IV fluids. Chest x-ray obtained on mitral rotation shows a right lower lobe infiltrate. I did start him on Levaquin. Ordered blood cultures and a lactate. Case discussed with hospitalist will evaluate patient for admission to ICU. Concern for possible sepsis and aspiration pneumonia. It is unclear if he had a cardiac arrest versus possible syncopal episode. Lab Data Attestation: I reviewed the patient's lab results. Labs: Laboratory Results - last 24 hr 06/24/24 09:55 WBC 14.1 H RBC 4.25 L Hgb 13.2 Hct 40.9 MCV 96.2 H MCH 31.1 MCHC 32.3 RDW Std Deviation 49.9 H RDW Coeff of Marifer 14.1 Plt Count TNP MPV 13.9 H Immature Gran % (Auto) 2.200 H Neut % (Auto) 54.2 Lymph % (Auto) 35.1 [place] % (Auto) 6.9 Eos % (Auto) 1.0 Baso % (Auto) 0.6 Absolute Neuts (auto) 7.7 Absolute Lymphs (auto) 4.97 H Nucleated RBC % 0.4 Platelet Estimate A Plt Morphology Comment CLUMPED Sodium 136 Potassium 3.9 Chloride 100 Carbon Dioxide 27.0 Anion Gap 9 BUN 21 H Creatinine 1.01 Estim Creat Clear Calc 83.13 Est GFR (MDRD) Af Amer 92 Est GFR (MDRD) Non-Af 76 BUN/Creatinine Ratio 20.8 H Glucose 198 H Calcium 9.3 Troponin I High Sens 109 H Radiography Diagnostic Testing: Clinical Impression(s) from Imaging Studies Chest X-Ray 06/24/24 09:59 IMPRESSION: No interval change Electronically Signed: Adiel Garcia MD at 10:29 EST Reading Location ID and State: [address] [place] [address] , Service support , 1 view chest x-ray obtained interpreted by myself as increased markings right lower lobe. Concern for aspiration pneumonia. Radiology felt there was no interval change. EKG Initial EKG: Attestation: I personally reviewed and interpreted this EKG as follows: Comments: Atrial fibrillation with ventricular rate 49 bpm with occasional PVCs Critical Care Time Critical Care Time: Yes Critical care time (excluding procedures): 30-74 minutes, Including time spent:, Discussing w/Patient &/or Family/Life Cycle Assessment Analyst, Discussing w/Consultants, Arranging Admission or Transfer, Performing Direct Patient Care at Bedside and - (30 minutes) Discharge Plan Triage Chief Complaint: CPR ED Provider: Kaylin Jama Dx/Rx/DC Orders Clinical Impression: Cardiac arrest, Aspiration pneumonia, Hypotension, Sepsis Prescriptions: No Action metformin 500 mg tablet extended release 24 hr 1,000 mg PO DAILY Patient Comments: TAKE 2 TABLETS EVERY DAY levothyroxine 150 mcg tablet 150 mcg PO DAILY (DME) PEP device See Rx Instructions .Route .MEDSUPPLY Qty: 1 0RF Rx Instructions: with training venlafaxine 75 mg capsule,extended release 24hr 225 mg PO QAM furosemide 40 mg tablet 40 mg PO .twice weekly albuterol sulfate 90 mcg/actuation HFA aerosol inhaler 2 puff inhalation Q6H PRN (Reason: shortness of breath or wheezing) Qty: 8.5 1RF pravastatin 40 MG tablet 40 mg PO QHS Xarelto 20 MG tablet 10 mg PO DINNER insulin glargine [Lantus U-100 Insulin] 100 unit/mL Solution 10 unit SUBCUT 0800 insulin lispro [Humalog KwikPen Insulin] 100 unit/mL insulin pen 12 unit SUBCUT BID ferrous sulfate 325 mg (65 mg iron) Tablet 325 mg PO DAILY cholecalciferol (vitamin D3) [Vitamin D3] 25 mcg (1,000 unit) Capsule 25 mcg PO DAILY tramadol 50 mg tablet 50 mg PO Q6H PRN (Reason: pain) Qty: 14 0RF Primary Care Provider: Raffaele Olguin Referrals: Raffaele Olguin MD [Primary Care Provider] - Print Language: Slovenian Disposition Disposition: Acute Care Hospital [facility]
[2024-06-24 10:10] LABS: Absolute Lymphocyte Count 4.97 X10^3/uL (0.83-4.51); Absolute Neutrophil Count 7.7 X10^3/uL (2.0-7.7); Basophil# 0.08 X10^3/uL; Basophil% 0.6 % (0-1); Eosinophil# 0.14 X10^3/uL; Hematocrit 40.9 % (40-54); Hemoglobin 13.2 g/dL (13.0-16.5); Lymphocyte # 4.97 X10^3/ul (0.83-4.51); Lymphocyte % 35.1 % (19-41); Mean Corp Hgb Conc 32.3 g/dL (32-36); Mean Corpuscular Hgb 31.1 pg (27.0-32.0); Mean Corpuscular Volume 96.2 fL (80-94); Mean Platelet Vol. 13.9 fl (6.2-12.0); Monocyte# 0.97 X10^3/uL; Monocyte% 6.9 % (0-10); NRBC Flagged by Analyzer 0.4 % (0-5); Neutrophil # 7.67 X10^3/uL (2.7-7.7); Neutrophil % 54.2 % (47-70); POSITIVE COUNT YES; RBC Distribution Width CV 14.1 % (11.6-14.6); RBC Distribution Width SD 49.9 fl (35.1-43.9); Red Blood Count 4.25 M/mm3 (4.6-6.2); White Blood Count 14.1 K/mm3 (4.4-11.0)
--- NOTE | 2024-06-24 10:11 | EKG12_ITS ---
Test Reason : POST ARREST Blood Pressure : */* mmHG Vent. Rate : 49 BPM Atrial Rate : * BPM P-R Int : * ms QRS Dur : 144 ms QT Int : 468 ms P-R-T Axes : * -39 35 degrees QTcB Int : 422 ms Atrial fibrillation with slow ventricular response with premature ventricular or aberrantly conducted complexes Left axis deviation Right bundle branch block Abnormal ECG Confirmed by BECKIE BLAS, TONY ([id number]), medical transcription editor CAMPOS PIERCE ([id number]) on 06/30/2024 9:04:19 AM Referred By: TAYLER Confirmed By: TONY BUTTS MD
[2024-06-24] MEDS: Aspirin 81 MG TAB.CHEW 324 MG PO (10:21)
[2024-06-24] MEDS: 0.9% Normal Saline (1000mL) 1,000 ML 999 ML IV ×3 (10:22→12:04)
[2024-06-24 10:23] LABS: Anion Gap 9 (5-15); BUN 21 mg/dL (7-18); BUN/Creat Ratio 20.8 RATIO (10-20); Calcium,Total 9.3 mg/dL (8.5-10.1); Chloride 100 mmol/L (98-107); Creatinine, Serum 1.01 mg/dL (0.70-1.30); EST Glomerular Filtration Rate 76 mL/min (>60); Est Glom Filt Rate - Afr Amer 92 mL/min (>60); Estimated Creatinine Clearance 83.13 ml/min; Glucose 198 mg/dL (74-106); Potassium 3.9 mmol/L (3.5-5.1); Sodium Level 136 mmol/L (136-145); Troponin-I HS (w/2H Reflex) 109 pg/mL (3.0-78.0)
[2024-06-24 10:36] LABS: Differential Indicated SCAN CRITERIA MET; Platelet Estimate A (ADEQ); Platelet Morphology CLUMPED
[2024-06-24] MEDS: Piperacil/Tazobactam 4.5 GM in 0.9% Normal Saline (100mL MB+) 100 ML IV (10:40)
[2024-06-24 11:37] LABS: Bedside Glucose 157 mg/dL (74-106)
[2024-06-24 12:01] LABS: Lactic Acid 1.9 mmol/L (0.4-1.9)
[2024-06-24 12:02] LABS: Reflex Troponin-HS? (from REC) Y
[2024-06-24] MEDS: Vancomycin HCl 2,000 MG in 0.9% Normal Saline (500mL Bag) 500 ML 250 MG IV (12:16)
[2024-06-24] MEDS: 0.9% Normal Saline (100mL Bag) 100 ML 15 ML IV (12:16)
[2024-06-24] MEDS: 0.9% Saline Lock 10 ML Syringe IV ×2 (12:56→16:49)
[2024-06-24 13:29] LABS: Lactic Acid 2.4 mmol/L (0.4-1.9); Troponin-I HS 260 pg/mL (3.0-78.0)
--- NOTE | 2024-06-24 13:34 | PCM.HP.STD ---
HPI - General General Date of Admission: 06/24/24 Date of Service: 06/24/24 Chief Complaint: Syncope. HPI Narrative ARMIN CHAND, is a 74 M who presents after an unresponsive episode. Patient was up at his kitchen table and was eating breakfast and then he slowly fell forward into the table. His called 911 and EMS was called. The embossing press operator apprentice instructed the to do CPR until EMS arrived. So she initiated chest compressions at bedside. She acknowledges she has never done chest compressions and does not feel that she was compressing very deep with her compressions. She was moved to another room when EMS arrived and they shocked the patient as he was in PEA and the patient immediately woke up. Patient was sent to the emergency room and was found to be septic and I did receive 3 L of IV fluids in the emergency room. He received pip/tazo in the ED. patient has no recollection of the events of history obtained through emergency room physician as well as the patient's who is at bedside. [facility] Medical History Kidney stones Atrial fibrillation Wears dentures Blind Depression Thyroid disease Insulin dependent diabetes mellitus Diabetes Ambulates with cane Anemia High cholesterol Injury of head and neck Former smoker Shortness of breath on exertion History of edema History of Holter monitoring History of echocardiogram Cardiology follow-up encounter History of atrial fibrillation Infected cyst of skin Open wound of back without complication Venous insufficiency of both lower extremities Ulcer of left lower extremity with fat layer exposed Longstanding persistent atrial fibrillation Left ventricular diastolic dysfunction Chronic diastolic (congestive) heart failure Right bundle branch block (RBBB) Essential (primary) hypertension COPD (chronic obstructive pulmonary disease) Anxiety and depression Obesity (BMI 30-39.9) Hyperlipidemia Hypothyroidism DM type 2 (diabetes mellitus, type 2) Poorly controlled type 2 diabetes mellitus Sepsis Head trauma Hx of transfusion of whole blood Back problem Home Medications ?Medication ?Instructions ?Recorded ?Last Taken ?Type pravastatin 40 mg tablet 40 mg PO QHS cholesterol 07/30/14 06/23/24 History rivaroxaban 20 mg tablet (Xarelto) 10 mg PO DINNER blood thinner 08/16/19 06/23/24 History metformin 500 mg tablet,extended 1,000 mg PO DAILY 03/02/20 06/23/24 History release 24 hr insulin glargine 100 unit/mL 10 unit subcut 0800 10/05/21 06/24/24 History subcutaneous solution (Lantus U-100 Insulin) PEP device #1 ea 11/14/21 Unknown Rx levothyroxine 150 mcg tablet 150 mcg PO DAILY 11/14/21 06/23/24 History cholecalciferol (vitamin D3) 25 25 mcg PO DAILY 01/02/22 06/23/24 History mcg (1,000 unit) capsule (Vitamin D3) ferrous sulfate 325 mg (65 mg 325 mg PO DAILY supplement 01/02/22 Unknown History iron) tablet tramadol 50 mg tablet 50 mg PO Q6H PRN pain #14 tabs 01/05/22 Unknown Rx albuterol sulfate 90 mcg/actuation 2 puff inhalation Q6H PRN 09/10/22 Unknown Rx aerosol inhaler shortness of breath or wheezing #8.5 grams insulin lispro 100 unit/mL 12 unit subcut BID 09/10/22 06/23/24 History subcutaneous pen (Humalog KwikPen (U-100) Insulin) furosemide 40 mg tablet 40 mg PO .twice weekly 03/13/23 Unknown History venlafaxine 225 mg tablet,extended 225 mg PO DAILY 06/24/24 06/24/24 History release 24 hr Allergy/AdvReac Type Severity Reaction Status Date / Time shellfish derived Allergy Hives Verified 03/22/24 10:25 Family History (Updated 06/24/24 @ 13:[address] Raffaele Kaur DO) Mother Cancer Sister Heart disease Surgical History Hx of excision of dermoid cyst (~01/2022) Hx of cataract surgery History of inguinal hernia repair H/O hernia repair Social History Smoking Status: Former smoker quit date: 06/03/09 second hand exposure: No alcohol intake: never substance use type: does not use ROS ROS Narrative States he been having intermittent chest pain off and on for some time. No shortness of breath. No fever or chills. This weekend patient did have near syncopal episode when he was having a coughing fit. This coughing may have been related with choking. All review of systems were negative except as mentioned above in the history of present illness and the other review of systems. Vital Signs Vital Signs Vital Signs: 06/24/24 09:46 06/24/24 09:52 06/24/24 09:58 Temperature 35.9 C L Temperature Source Axillary Pulse Rate 58 L 54 L Respiratory Rate 19 H 14 Respiratory Pattern Normal Blood Pressure 98/60 Blood Pressure Mean 72 Blood Pressure Source Blood Pressure Position Blood Pressure Location Pulse Ox 100 92 Oxygen Delivery Method Non-Rebreather Oxygen Flow Rate (L/min) 10 06/24/24 09:59 06/24/24 10:00 06/24/24 10:15 Temperature Temperature Source Pulse Rate 54 L 43 L Respiratory Rate 20 H 20 H Respiratory Pattern Blood Pressure 79/51 L 81/52 L Blood Pressure Mean 62 62 Blood Pressure Source Blood Pressure Position Blood Pressure Location Pulse Ox 98 100 Oxygen Delivery Method Nasal Cannula Oxygen Flow Rate (L/min) 5 06/24/24 10:30 06/24/24 10:45 06/24/24 11:00 Temperature Temperature Source Pulse Rate 43 L 39 L 59 L Respiratory Rate 16 17 18 Respiratory Pattern Blood Pressure 86/54 L 95/59 L 88/69 L Blood Pressure Mean 66 71 77 Blood Pressure Source Blood Pressure Position Blood Pressure Location Pulse Ox 99 99 Oxygen Delivery Method Oxygen Flow Rate (L/min) 06/24/24 11:15 06/24/24 11:16 06/24/24 11:30 Temperature Temperature Source Pulse Rate 73 76 73 Respiratory Rate 17 23 H 12 Respiratory Pattern Blood Pressure 118/88 H 135/69 H Blood Pressure Mean 99 84 Blood Pressure Source Blood Pressure Position Blood Pressure Location Pulse Ox 100 100 99 Oxygen Delivery Method Oxygen Flow Rate (L/min) 06/24/24 11:32 06/24/24 11:54 06/24/24 12:00 Temperature 36.6 C 36.7 C 36.7 C Temperature Source Temporal Temporal Pulse Rate 73 60 65 Respiratory Rate 12 14 20 H Respiratory Pattern Blood Pressure 135/69 H 115/71 104/62 Blood Pressure Mean 91 85 76 Blood Pressure Source Monitor Monitor Blood Pressure Position Semi-Fowlers Semi-Fowlers Blood Pressure Location Right Arm Right Arm Pulse Ox 99 100 94 Oxygen Delivery Method Room Air Room Air Oxygen Flow Rate (L/min) 06/24/24 12:15 06/24/24 12:30 Temperature Temperature Source Pulse Rate 78 72 Respiratory Rate 11 L 13 Respiratory Pattern Blood Pressure 116/75 131/85 H Blood Pressure Mean 88 100 Blood Pressure Source Monitor Monitor Blood Pressure Position Semi-Fowlers Semi-Fowlers Blood Pressure Location Right Arm Right Arm Pulse Ox 91 91 Oxygen Delivery Method Room Air Room Air Oxygen Flow Rate (L/min) Weight Weight: 108.2 kg Body Mass Index (BMI) 29.8 Physical Exam Const alert and no apparent distress HEENT normocephalic, head/scalp atraumatic, hearing grossly normal bilaterally and moist oral mucous membranes Resp normal respiratory effort, no retractions, no use of accessory muscles and clear to auscultation bilaterally Cardio regular rate, regular rhythm, S1 normal heart sound and S2 normal heart sound GI normal to inspection, nondistended, normoactive bowel sounds, soft to palpation, non-tender and non-distended Extremity normal to inspection and full ROM Neuro Sensorium / Orientation: awake and alert Psych affect normal Results Lab / Micro Data Attestation: I reviewed the patient's lab results. 06/24/24 09:55 06/24/24 09:55 Labs: Laboratory Results - last 24 hr 06/24/24 09:55: WBC 14.1 H, RBC 4.25 L, Hgb 13.2, Hct 40.9, MCV 96.2 H, MCH 31.1, MCHC 32.3, RDW Std Deviation 49.9 H, RDW Coeff of Marifer 14.1, Plt Count TNP, MPV 13.9 H, Immature Gran % (Auto) 2.200 H, Neut % (Auto) 54.2, Lymph % (Auto) 35.1, [place] % (Auto) 6.9, Eos % (Auto) 1.0, Baso % (Auto) 0.6, Absolute Neuts (auto) 7.7, Absolute Lymphs (auto) 4.97 H, Nucleated RBC % 0.4, Platelet Estimate A, Plt Morphology Comment CLUMPED, Sodium 136, Potassium 3.9, Chloride 100, Carbon Dioxide 27.0, Anion Gap 9, BUN 21 H, Creatinine 1.01, Estim Creat Clear Calc 83.13, Est GFR (MDRD) Af Amer 92, Est GFR (MDRD) Non-Af 76, BUN/Creatinine Ratio 20.8 H, Glucose 198 H, Calcium 9.3, Troponin I High Sens 109 H 06/24/24 11:15: Lactic Acid 1.9 06/24/24 11:17: POC Glucose 157 H 06/24/24 12:20: Lactic Acid 2.4 H*, Troponin I High Sens 260 H* EKG Initial EKG: Attestation: I personally reviewed and interpreted this EKG as follows: Prior EKG tracings: available for review EKG Rhythm Intrepretation: Atrial Fibrillation (bradycardia. ) Imaging Radiology Impression Chest X-Ray 06/24/24 09:59 IMPRESSION: No interval change Electronically Signed: Adiel Garcia MD at 10:29 EST Reading Location ID and State: [facility] / [place] , Service support , Assessment & Plan Assessment/Plan (1) Sepsis: PLAN: SIRS 3/4, qSOFA 3 2/2 pneumonia BCx pending (2) Aspiration pneumonia: PLAN: unclear if pt was choking this episode, but did have an episode this weekend. Abx with pip/tazo and vancomycin. Check antigens for strep and legionella. SCx (3) Syncope: PLAN: Highly doubt this is actually cardiac arrest for number reasons: Patient passed out slowly according to his . She did do compressions but she described them more or less sliding over her chest and not actually being directed downwards so the quality of the CPR was fortunately poor. And the patient received a defibrillation for PEA which is clearly not indicated. Likely defibrillation served only to rouse the patient from his syncopal episode. Will check an echocardiogram (4) Elevated troponin: PLAN: Up from earlier. Doubt cardiac events but probably from the low quality CPR and defibrillation. Echo ordered. Patient did receive aspirin in the emergency room. PLAN: Plan Chronic conditions DM2: SSI for now. If he can start eating, resume his glargine and prandial insulins. Hold metfomin for now given the lactic acidosis. hypothyroidism: continue levothyroxine depression: continue venlafexine when able to take oral. afib: continue rivaroxaban. VTE prophylaxis: not indicated as already on rivaroxaban Code status: verified with patient and family, Full Code. Charges/Coding Visit Charges Inpatient E&M: 58834 Init Hosp L3
--- NOTE | 2024-06-24 13:47 | ECHOCS_ITS ---
Reason For Study: Syncope Procedure This was a 2D Doppler, Color Flow transthoracic echocardiogram. The study was technically difficult. Contrast injection was performed. Exam performed with patient sitting slightly elevated due to soreness from CPR the day before. Exam performed portable in ICU/CCU. Left Ventricle Normal LV size. The estimated ejection fraction is 60 %. Unable to assess diastolic dysfunction. No regional wall motion abnormalities noted. Right Ventricle Normal RV size. Normal systolic function. Atria There is mild biatrial dilatation. No doppler evidence for ASD. Mitral Valve There is no mitral valve stenosis. Trivial mitral valve insufficiency. Tricuspid Valve There is no tricuspid stenosis. Trivial tricuspid valve insufficiency. Pulmonary artery systolic pressure is 40-45 mmHg. Aortic Valve Trisinus/trileaflet aortic valve. There is no aortic stenosis. Trivial aortic valve insufficiency. Pulmonic Valve There is no pulmonic valvular stenosis. No pulmonic valve insufficiency. Great Vessels Normal aortic root. Pericardium/Pleural No pericardial effusion. Medication Diluted definity 3ml given slow IV push to enhance endocardial definition. MMode/2D Measurements & Calculations LVIDd: 5.3 cm IVSd: 1.2 cm LVOT diam: 2.4 cm LVIDs: 3.8 cm LVPWd: 1.3 cm FS: 26.8 % LVOT area: 4.4 cm2 Ao root diam: 3.7 cm LAV(MOD-bp): 94.1 ml LVAd ap4: 39.1 cm2 LAV(MOD-bp) Indexed: 39.8 ml/m2 LVLd ap4: 8.8 cm LAV(MOD-sp2): 85.7 ml EDV(MOD-sp4): 138.6 ml LAV(MOD-sp4): 91.8 ml EDV(sp4-el): 146.9 ml LVAs ap4: 24.7 cm2 LVLs ap4: 7.5 cm ESV(MOD-sp4): 69.2 ml ESV(sp4-el): 69.6 ml EF(MOD-sp4): 50.1 % EF(sp4-el): 52.6 % SV(MOD-sp4): 69.4 ml SV(sp4-el): 77.3 ml LA A4 area: 28.4 cm2 SI(MOD-sp4): 29.4 ml/m2 LA dimension(2D): 4.7 cm RA A4 area: 27.6 cm2 Doppler Measurements & Calculations MV E max tiffani: 98.4 cm/sec MV V2 max: 105.1 cm/sec MV P1/2t max tiffani: 114.1 cm/sec MV max P.4 mmHg MV P1/2t: 98.4 msec MV V2 mean: 42.4 cm/sec MV dec slope: 339.6 cm/sec2 MV mean P.1 mmHg MVA(P1/2t): 2.2 cm2 MV V2 VTI: 29.5 cm Ao V2 max: 134.1 cm/sec LV V1 max: 65.7 cm/sec PA V2 max: 76.0 cm/sec Ao max P.2 mmHg LV V1 max P.7 mmHg KISHOR(V,D): 2.1 cm2 TR max tfifani: 290.5 cm/sec TR max P.8 mmHg ECHO/Echo Complete W/ Contrast Interpretation Summary The estimated ejection fraction is 60 %. There is mild biatrial dilatation. Trivial mitral valve insufficiency. Trivial aortic valve insufficiency. Ordering Physician: Raffaele Kaur Performed By: Jose Sánchez RCS
[2024-06-24 14:33] LABS: Bedside Glucose 150 mg/dL (74-106)
--- NOTE | 2024-06-24 15:13 | PCM.RX.CS ---
Consult Antibiotic Management Pharmacy has been consulted to manage selected antibiotic: Vancomycin Type of Intervention Type of Consult: New start Labs Labs: Sodium 136 mmol/L (136-145) 06/24/24 09:55 Potassium 3.9 mmol/L (3.5-5.1) 06/24/24 09:55 Chloride 100 mmol/L (98-107) 06/24/24 09:55 Carbon Dioxide 27.0 mmol/L (21.0-32.0) 06/24/24 09:55 Anion Gap 9 (5-15) 06/24/24 09:55 BUN 21 mg/dL (7-18) H 06/24/24 09:55 Creatinine 1.01 mg/dL (0.70-1.30) 06/24/24 09:55 Est GFR (MDRD) Af Amer 92 mL/min (>60) 06/24/24 09:55 Est GFR (MDRD) Non-Af 76 mL/min (>60) 06/24/24 09:55 BUN/Creatinine Ratio 20.8 RATIO (10-20) H 06/24/24 09:55 Glucose 198 mg/dL (74-106) H 06/24/24 09:55 Microbiology Microbiology: Microbiology 06/24/24 12:59 Mucosa - Nasopharyngeal SARS-CoV-2, Influenza & RSV (PCR) - Final Pharmacy Plan for Drug Dosing Pharmacy Plan for Drug Dosing: NEW START IV VANCOMYCIN Consulting Physician: Natasha Indication: sepsis/pneumonia Goal Trough: 15-20 mg/dL SrCr: 1.01 mg/dL CrCl: 83 mL/min Comments: loading dose of 2000mg given 06/24 @ 1216 Vancomycin Dose: Will start 1750mg Q12 (06/25 @ 0000) and get a trough prior to 4th total dose per policy. Pending Level: 06/25/24 @ 2330 Pharmacy Service will continue to monitor and adjust dosing as required.
--- NOTE | 2024-06-24 15:49 | WOUNDNOTE ---
wound photo: left lateral ankle
[2024-06-24 15:53] LABS: Magnesium 1.9 mg/dL (1.6-2.6)
[2024-06-24 16:31] LABS: Reflex Lactate? Y
[2024-06-24] MEDS: Acetaminophen 325 MG Tablet 650 MG PO ×2 (16:49→23:31)
[2024-06-24 16:58] LABS: Bedside Glucose 166 mg/dL (74-106)
[2024-06-24 17:19] LABS: Troponin-I HS 417 pg/mL (3.0-78.0)
[2024-06-24 17:47] LABS: Lactic Acid 1.4 mmol/L (0.4-1.9)
[2024-06-24] MEDS: Piperacil/Tazobactam 3.375 GM in 0.9% Normal Saline (50mL MB+) 50 ML IV (21:06)
[2024-06-24] MEDS: Pravastatin 40 MG Tablet PO (21:08)
[2024-06-24 21:25] LABS: Bedside Glucose 149 mg/dL (74-106)
[2024-06-25] VITALS (25 sets, daily range): BP systolic 105–135; BP diastolic 58–88; PULSE 60–81; RESP 13–22; TEMP 36.9–37.2; O2SAT 90–99
[2024-06-25] MEDS: Vancomycin HCl 1,750 MG in 0.9% Normal Saline (500mL Bag) 500 ML 250 MG IV ×2 (01:04→13:35)
[2024-06-25] MEDS: Levothyroxine 150 MCG Tablet PO (05:04)
[2024-06-25] MEDS: Piperacil/Tazobactam 3.375 GM in 0.9% Normal Saline (50mL MB+) 50 ML IV ×3 (05:05→20:39)
[2024-06-25] MEDS: 0.9% Saline Lock 10 ML Syringe IV (05:05)
[2024-06-25 05:38] LABS: Absolute Lymphocyte Count 1.12 X10^3/uL (0.83-4.51); Absolute Neutrophil Count 4.8 X10^3/uL (2.0-7.7); Basophil# 0.03 X10^3/uL; Basophil% 0.4 % (0-1); Eosinophil# 0.07 X10^3/uL; Hematocrit 33.7 % (40-54); Hemoglobin 10.9 g/dL (13.0-16.5); Lymphocyte # 1.12 X10^3/ul (0.83-4.51); Lymphocyte % 16.8 % (19-41); Mean Corp Hgb Conc 32.3 g/dL (32-36); Mean Corpuscular Hgb 31.1 pg (27.0-32.0); Monocyte# 0.54 X10^3/uL; Monocyte% 8.1 % (0-10); NRBC Flagged by Analyzer 0 % (0-5); Neutrophil # 4.84 X10^3/uL (2.7-7.7); Neutrophil % 72.7 % (47-70); POSITIVE COUNT YES; RBC Distribution Width CV 14.2 % (11.6-14.6); RBC Distribution Width SD 49.5 fl (35.1-43.9); Red Blood Count 3.51 M/mm3 (4.6-6.2); White Blood Count 6.7 K/mm3 (4.4-11.0)
[2024-06-25 06:11] LABS: ALB/GLOB Ratio 0.7 RATIO (0.9-2.4); AST(SGOT) 33 U/L (15-37); Alanine Aminotransfer ALT/SGPT 34 U/L (16-61); Albumin, Serum 2.8 g/dL (3.2-5.0); Alkaline Phosphatase 98 U/L (45-117); Anion Gap 6 (5-15); BUN 20 mg/dL (7-18); Calcium,Total 8.7 mg/dL (8.5-10.1); Chloride 109 mmol/L (98-107); Creatinine, Serum 0.83 mg/dL (0.70-1.30); EST Glomerular Filtration Rate 95 mL/min (>60); Est Glom Filt Rate - Afr Amer 115 mL/min (>60); Estimated Creatinine Clearance 101.08 ml/min; Glucose 171 mg/dL (74-106); Potassium 4.2 mmol/L (3.5-5.1); Protein, Total 6.8 g/dL (6.4-8.2); Sodium Level 141 mmol/L (136-145)
[2024-06-25 07:05] LABS: Platelet Estimate ADEQUATE (ADEQ)
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
--- NOTE | 2024-06-25 10:32 | CASEMGMT ---
Social Work- SW participated in interdisciplinary rounds on pt. Pt therapy on hold. Pt lives at home with . Discharge needs unknown at this time. SW remains available to follow. DANGELO Mackey
--- NOTE | 2024-06-25 10:38 | NURSING ---
Pt monitored by MG Molina on ICU monitor during swallow test with VENEER SAWYER. During test pt had an episode where HR started in the 80s, pt aspirated, while coughing had a pause and dropped into the 50s. Pt had another episode while being transported back to ICU in bed. Pt HR in 70s, pt started to cough, had a pause, dropped into the 40s, pt stated I can't breathe sit me up. HOB elevated to 65 degrees. Pt taken back to ICU room. Report given to MG Garcia.
--- NOTE | 2024-06-25 10:47 | ST.MBS ---
Modified Barium Swallow Patient Information Study Date: 06/25/24 Study Time: 10:00 Direct Billable Minutes: 120 Total Minutes procedure & reportin Diagnosis: Aspiration PNA J69.0 Referring Physician: Raffaele Kaur Reason for Referral: Objectively assess swallow function, assess risk for aspiration, and determine recommendations for least restrictive diet textures and compensatory strategies to improve safety of swallow. Medical History: PMH: Kidney stones, Afib, Wears dentures, Blind, Depression, Thyroid disease, DM type 2, Anemia, High cholesterol, Injury of head and neck, Former smoker, SOB on exertion, Left ventricular diastolic dysfunction, CHF, RBBB, HTN, COPD, HLD, Hypothyroidism, Sepsis, Head trauma - See EMR for full PMH. Pt presented to [facility] ED 06/24/2024 after an unresponsive episode. Patient was up at his kitchen table and was eating breakfast and then he slowly fell forward into the table. His called 911 and EMS was called. The press operator apprentice instructed the to do CPR until EMS arrived. initiated chest compressions. When EMS arrived, pt was shocked as he was in PEA and pt immediately woke. Of note, the pt had a choking episode at home the Saturday before admission w/ EMS called per report. Pt was admitted for management of aspiration PNA. BSE recommended sips and chips w/ distant supervision w/ recommendation for MBSS today prior to diet advancement. Current Diet Ordered: NPO - sips and chips Dentition: Upper Dentures (ill fitting) Mental Status: WNL (Able to follow commands for evaluation) Respiratory Status: Oxygenating on 2L/M nasal cannula Penetration-Aspiration Scale Penetration-Aspiration Scale: OBJECTIVE ASSESSMENT OF SWALLOW FUNCTION (QUANTITATIVE ? PER TRIAL): PENETRATION / ASPIRATION SCALE (HERNANDEZ): 1 = does not enter airway 2 = enters airway/above vocal folds/ejected 3 = enters airway/above vocal folds/not ejected 4 = enters airway/contacts vocal folds/ejected 5 = enters airway/contacts vocal folds/not ejected 6 = enters airway/below vocal folds/ejected 7 = enters airway/below vocal folds/not ejected despite effort 8 = enters airway/below vocal folds/no effort VIDEOFLOROSCOPIC SCALE SCORE (HERNANDEZ): Grade I = aspiration of material that has penetrated into the laryngeal vestibule, intact cough reflex Grade II = aspiration < 10 % of the bolus, intact cough reflex Grade III = aspiration of < 10 % of the bolus, reduced cough reflex or aspiration of > 10 % of the bolus, intact cough reflex Grade IV = aspiration of > 10 % of the bolus, reduced cough reflex Penetration-Aspiration Scale Score Thin Liquid via teaspoon: Result: 1= does not enter airway Thin Liquid via teaspoon Trial 2: Result: 2= enter airway/above vocal folds/ejected Thin Liquid via large single sip: cup: Result: 2= enter airway/above vocal folds/ejected Dendron Thick Liquid via large single sip: cup: Result: 1= does not enter airway Pudding via teaspoon: Result: 1= does not enter airway Comment: Esophageal screen - Retention of pudding in the middle esophagus, no emptying through LES. Thin Liquid via single sip: straw: Result: 2= enter airway/above vocal folds/ejected Comment: Esophageal screen - Liquid wash mostly cleared pudding through LES; however, retrograde flow of liquids through LES to the upper esophagus. 1/4 Cookie: Result: 1= does not enter airway Comment: Esophageal screen - Retention of cookie in the lower esophagus w/ retrograde flow to the middle esophagus. Thin Liquid via sequential sips:straw: Result: 7= enters airways/below vocal folds/not ejected despite effort Thin Liquid via single sip: straw Trial 2: Result: 1= does not enter airway Oral Phase Labial Seal: No Labial Escape Tongue Control During Bolus Hold: Posterior escape of greater than half of bolus Bolus Preparation/Mastication: Disorganized chewing/mashing with solid pieces of bolus unchewed Bolus Transport/Lingual Motion: Repetitive/disorganized tongue motion Oral Residue: Residue collection on oral structures Pharyngeal Phase Initiation of Pharyngeal Swallow: Bolus head in pyriforms Soft Palate Elevation: Trace column of contrast/air between soft palate and pharyngeal wall Laryngeal Elevation: Partial superior movement thyroid cart/partial apprx aryt-epig petiole Anterior Hyoid Excursion: Partial anterior movement Epiglottic Movement: Complete inversion Laryngeal Vestibule Closure at Height of Swallow: Incomplete; narrow column of air/contrast in laryngeal vestibule Pharyngeal Stripping Wave: Present - diminished Pharyngoesophageal Segment Opening: Parital distension and partial duration; parital obstruction of flow Tongue Base Retraction: Wide column of contrast between tongue base & post. pharyngeal wall Pharyngeal Residue: Collection of residue within or on pharyngeal structures Esophageal Phase Esophageal Clearance: Complete clearance Diagnosis/Impression Diagnosis: Moderate oropharyngeal dysphagia R13.12; Esophageal dysphagia R13.14 Impression: The oral phase is primarily marked by... -Decreased bolus control w/ posterior loss of >1/2 thin liquids to the pyriforms prior to swallow onset w/ sequential sips of thin liquids. -Disorganized tongue motion for A-P transport w/ sequential thin. -Decrease mastication w/ small pieces of cookie appearing un-chewed likely due to ill fitting upper dentures. The pharyngeal phase is primarily marked by... -Delayed swallow onset. -Decreased pharyngeal motility due to decreased TB retraction, pharyngeal stripping wave, and UES opening/duration w/ mild-moderate pharyngeal residues that mostly cleared w/ independent use of multiple swallows. -Decreased airway closure due to decreased anterior hyoid excursion and laryngeal elevation. -Aspiration of sequential sips of thin liquids. The esophageal phase is primarily marked by... -Retention of pudding in middle esophagus, which improved w/ liquid wash; however, retrograde flow of liquid wash to upper esophagus. -Retention of cookie in lower esophagus w/ retrograde flow to the middle esophagus. Recommendations Diet: NPO Comment: FINANCIAL RECORDING CLERK is recommending NPO w/ meds whole in at this time. HR dropped ~30BPM with aspiration event during MBSS. Per RN, HR has been as low as 28 BPM since last night. FINANCIAL RECORDING CLERK will recommend pt remain NPO until HR is more stable. Once HR is more stable, will recommend the patient for diet advancement to soft and bite size textures / thin liquids w/ direct supervision and feeding assistance as needed w/ liquids to ensure 1 sip at a time, denture adhesive to keep dentures in place, slow rate, alternate bites/sips 1:1 ratio, sitting upright 90 degrees during and 30 min after oral intake. Recommend Repeat Modified Barium Swallow: TBD Need for Skilled Speech Therapy Services: Yes Comment: -Train the patient in use of strategies to decrease risk for aspiration and reflux aspiration. -Ongoing assessment of diet tolerance of recommended textures. -Train the patient in oropharyngeal exercise program to improve bolus control, airway closure, pharyngeal motility, and UES opening/duration (lingual resistance, Vannesa, Effortful, CTAR, Yawn stretch). Recommended Referrals: GI Consult Education Completed: 1. Described result of evaluation. Status Active ST Patient: Active Contact Information [facility] Speech Therapy:: Lis Obrien M.A. [facility]-FINANCIAL RECORDING CLERK? Speech-Language Pathologist?? [facility] [address] [place] [address]? [email or web address]?? [phone]
--- NOTE | 2024-06-25 11:40 | CASEMGMT ---
RN CM PULLING UNIT OPERATOR CM?to room to meet with patient for initial transition planning/care coordination assessment. RN CM?introduced self and role at [facility]. Pt voices understanding and consents to assessment?at this time. Pt resting in bed in no distress at this time. @ bedside. Pt is blind. Pt is A/O at this time and answers all questions appropriately. Care providers, pharmacy, and demographics verified/updated at this time. Strata:?3 PCP: Dr Raffaele Olguin. Pt had an appt with him today and states she did call and cx it. Specialists: Dr Isabel-cardiology, Dr Anderson-podiatry. Pt was seeing Dr Ovalle-pulmonology and plans to f/u with Dr Rodolfo Davis now. Preferred Pharmacy: [facility] [address] [facility] Yes LNOK: , Callie. 2 adult children. Living Arrangements: Lives w/ in one-story home w/basement w/ramp entrance. Pt's grandson, grandson's , and 2 grand-children live in the basement. They have lived there for about 7 yrs. Pt is independent w/ADL's mostly, but does assist w/LE dressing at times, if needed. Grandsons assists w/setting up medications and gives them to pt. does the cooking. Grandson's does the laundry in the basement and helps w/other home mgnt tasks. Pt voices frustration w/grandson's , stating she doesn't work and they don't pay any rent or help w/bills. Pt's states pt and grandson's do not get along and argue almost every day. Pt states he doesn't want to ask them to move because he's concerned he won't be able to get to see his great-grandchildren if they do. Transportation:? DME: States has the following DME: shower chair, cane (uses all the time), ramp entrance, functioning glucometer w/supplies. states pt has enough insulin and needles. They have a walker, rollator, and W/C available, but does not use. Pt does not have home O2. Pt states no need for further DME at this time. HHC/SNF: Pt was @ [facility] many yrs ago and has had HHC in the past. Discussed discharge planning. Pt wishes to return home and states has no concerns with going home at time of discharge. He states, I'm more than ready to go back home now. Pt does state he is feeling weak and states is even difficult to sit up in the bed, but he does states he wants to go home, declining the need for SNF. Discussed HHC and pt declines this as well, stating they have a dog and with the 2 great-grandchildren running around he doesn't want any HHC. Pt and made aware, once pt returns home if he changes his mind, to f/u with PCP, Dr Olguin, about this. Pt and also made aware PT/OT evals are pending and CM to f/u if any recommendations made. CM?to follow for home oxygen needs and any further discharge planning/needs. Pt and voice no further concerns/needs at this time. Advised them to ask for CM?if any further questions/concerns/needs arise. They voice understanding. Pt plan: Home Plan: TBD. PT/OT evals pending. Pt to have heart cath. Follow for possible anti-coag. Luis BROWER RN CM
--- NOTE | 2024-06-25 12:09 | CON.PCM.CA_ITS ---
Assessment & Plan Assessment/Plan (1) Ventricular tachycardia: PLAN: Patient's rhythm strips when the paramedics arrived at his home were reviewed. Patient has a wide-complex tachycardia that could be ventricular tachycardia. A-fib with RVR is also in the differential. Patient's potassium and magnesium were unremarkable. 2D echo revealed preserved ejection fraction. We will proceed with coronary angiography to see if patient has significant CAD that could explain possible V. tach. (2) Cardiac arrest: (3) Elevated troponin: (4) Longstanding persistent atrial fibrillation: PLAN: Patient's rate is controlled on no medications. His longest R-R interval was around 4.1 seconds. This was yesterday. It does not appear that he has had further significant long pauses this morning. Will continue to monitor him on telemetry. He may end up requiring a beta-anthony if he has further episodes of A-fib with RVR or V. tach. He does have these long pauses as well. For this reason he may need pacemaker. At this time however it is unclear if we have to go that route. HPI Consult Data Date of Consult: 06/25/24 HPI Narrative Reason for Consultation: V. tach HPI Narrative: ARMIN CHAND, is a 74 M who presents after an unresponsive episode. Patient was apparently having breakfast with his and became unresponsive. His called 911 and initiated CPR. When the EMS arrived patient was found to have a tachyarrhythmia and was shocked. He was then brought to the emergency room and has been admitted to the ICU. He is in A-fib with some episodes of long R-R interval with the longest being 4.1 seconds. He has chest pain which is reproducible to palpation. He denied having any anginal type chest pain. He has had a couple of episodes of falls in the last 2 months which appear to be mechanical falls. Review of systems: All systems reviewed. All else is negative except as in the [facility] Medical History (Updated 06/25/24 @ 07:[address] Raffaele Kaur DO) Kidney stones Atrial fibrillation Wears dentures Blind Depression Thyroid disease Insulin dependent diabetes mellitus Diabetes Ambulates with cane Anemia High cholesterol Injury of head and neck Former smoker Shortness of breath on exertion History of edema History of Holter monitoring History of echocardiogram Cardiology follow-up encounter History of atrial fibrillation Infected cyst of skin Open wound of back without complication Venous insufficiency of both lower extremities Ulcer of left lower extremity with fat layer exposed Longstanding persistent atrial fibrillation Left ventricular diastolic dysfunction Chronic diastolic (congestive) heart failure Right bundle branch block (RBBB) Essential (primary) hypertension COPD (chronic obstructive pulmonary disease) Anxiety and depression Obesity (BMI 30-39.9) Hyperlipidemia Hypothyroidism DM type 2 (diabetes mellitus, type 2) Poorly controlled type 2 diabetes mellitus Sepsis Head trauma Hx of transfusion of whole blood Back problem Home Medications ?Medication ?Instructions ?Recorded ?Last Taken ?Type pravastatin 40 mg tablet 40 mg PO QHS cholesterol 07/30/14 06/23/24 History rivaroxaban 20 mg tablet (Xarelto) 10 mg PO DINNER blood thinner 08/16/19 06/23/24 History metformin 500 mg tablet,extended 1,000 mg PO DAILY 03/02/20 06/23/24 History release 24 hr insulin glargine 100 unit/mL 10 unit subcut 0800 10/05/21 06/24/24 History subcutaneous solution (Lantus U-100 Insulin) PEP device #1 ea 11/14/21 Unknown Rx levothyroxine 150 mcg tablet 150 mcg PO DAILY 11/14/21 06/23/24 History cholecalciferol (vitamin D3) 25 25 mcg PO DAILY 01/02/22 06/23/24 History mcg (1,000 unit) capsule (Vitamin D3) ferrous sulfate 325 mg (65 mg 325 mg PO DAILY supplement 01/02/22 Unknown History iron) tablet tramadol 50 mg tablet 50 mg PO Q6H PRN pain #14 tabs 01/05/22 Unknown Rx albuterol sulfate 90 mcg/actuation 2 puff inhalation Q6H PRN 09/10/22 Unknown Rx aerosol inhaler shortness of breath or wheezing #8.5 grams insulin lispro 100 unit/mL 12 unit subcut BID 09/10/22 06/23/24 History subcutaneous pen (Humalog KwikPen (U-100) Insulin) furosemide 40 mg tablet 40 mg PO .twice weekly 03/13/23 Unknown History venlafaxine 225 mg tablet,extended 225 mg PO DAILY 06/24/24 06/24/24 History release 24 hr Allergy/AdvReac Type Severity Reaction Status Date / Time shellfish derived Allergy Hives Verified 03/22/24 10:25 Family History (Updated 06/24/24 @ 13:[address] Raffaele Kaur DO) Mother Cancer Sister Heart disease Surgical History Hx of excision of dermoid cyst (~01/2022) Hx of cataract surgery History of inguinal hernia repair H/O hernia repair Social History Smoking Status: Former smoker quit date: 06/03/09 second hand exposure: No alcohol intake: never substance use type: does not use Physical Exam Const alert and oriented x3 HEENT normocephalic Eyes no scleral icterus Resp normal respiratory effort Cardio Cardio Narrative: Irregular rhythm Extremity no pedal edema Skin no rashes or lesions noted Risk Stratification Risk Stratification Applicable: No Charges/Coding Visit Charges Inpatient E&M: 32453 Init Hosp L2 Objective Data Vital Signs: Vital Signs Temp Pulse Resp BP Pulse Ox O2 Del Method O2 Flow Rate 98.6 F 60 14 130/75 H 97 Nasal Cannula 2 06/25/24 08:00 06/25/24 11:00 06/25/24 11:00 06/25/24 11:00 06/25/24 11:00 06/25/24 11:00 06/25/24 11:00 Oxygen Flow Rate (L/min) 2 Oxygen Delivery Method Nasal Cannula Weight: 240 lb 11.916 oz Body Mass Index (BMI) 30.0 Intake & Output: Intake and Output for Last 24 Hours 06/23/24 06/24/24 06/25/24 23:59 23:59 23:59 Intake Total 3730.50 / 3730.50 635 / 635 Output Total 550 / 550 800 / 800 Balance 3180.50 / 3180.50 -165 / -165 Lab / Micro Data 06/25/24 05:10 06/25/24 05:10 Labs: Laboratory Results - last 24 hr 06/24/24 12:20: Lactic Acid 2.4 H*, Magnesium 1.9 06/24/24 12:20: Magnesium Cancelled, Troponin I High Sens 260 H* 06/24/24 14:15: POC Glucose 150 H 06/24/24 16:35: Lactic Acid 1.4, Troponin I High Sens 417 H* 06/24/24 16:38: POC Glucose 166 H 06/24/24 21:05: POC Glucose 149 H 06/25/24 05:10: WBC 6.7, RBC 3.51 L, Hgb 10.9 L, Hct 33.7 L, MCV 96.0 H, MCH 31.1, MCHC 32.3, RDW Std Deviation 49.5 H, RDW Coeff of Marifer 14.2, Plt Count TNP, MPV TNP, Immature Gran % (Auto) 1.000 H, Neut % (Auto) 72.7 H, Lymph % (Auto) 16.8 L, [place] % (Auto) 8.1, Eos % (Auto) 1.0, Baso % (Auto) 0.4, Absolute Neuts (auto) 4.8, Absolute Lymphs (auto) 1.12, Nucleated RBC % 0, Platelet Estimate ADEQUATE, Sodium 141, Potassium 4.2, Chloride 109 H, Carbon Dioxide 26.0, Anion Gap 6, BUN 20 H, Creatinine 0.83, Estim Creat Clear Calc 101.08, Est GFR (MDRD) Af Amer 115, Est GFR (MDRD) Non-Af 95, BUN/Creatinine Ratio 24.0 H, Glucose 171 H, Calcium 8.7, Total Bilirubin 0.70, AST 33, ALT 34, Alkaline Phosphatase 98, Total Protein 6.8, Albumin 2.8 L, Globulin 4.0, Albumin/Globulin Ratio 0.7 L Micro: Microbiology 06/24/24 15:00 Urine, Random Legionella Antigen - Final 06/24/24 15:00 Urine, Random Streptococcus pneumoniae Antigen (M - Final 06/24/24 12:59 Mucosa - Nasopharyngeal SARS-CoV-2, Influenza & RSV (PCR) - Final Cardiology Labs/Tests 06/24/24 12:20: Lactic Acid 2.4 H*, Magnesium 1.9 06/24/24 12:20: Magnesium Cancelled 06/24/24 16:35: Lactic Acid 1.4 06/25/24 05:10: WBC 6.7, RBC 3.51 L, Hgb 10.9 L, Hct 33.7 L, MCV 96.0 H, MCH 31.1, MCHC 32.3, Plt Count TNP, MPV TNP, Immature Gran % (Auto) 1.000 H, Neut % (Auto) 72.7 H, Lymph % (Auto) 16.8 L, [place] % (Auto) 8.1, Eos % (Auto) 1.0, Baso % (Auto) 0.4, Absolute Neuts (auto) 4.8, Nucleated RBC % 0, Sodium 141, Potassium 4.2, Chloride 109 H, Carbon Dioxide 26.0, Anion Gap 6, BUN 20 H, Creatinine 0.83, Est GFR (MDRD) Af Amer 115, Est GFR (MDRD) Non-Af 95, B UN/Creatinine Ratio 24.0 H, Glucose 171 H, Calcium 8.7, Total Bilirubin 0.70 Rhythm: EKG: ECHO: Stress Test: Cardiac Cath: PCI: CT Surgery: Holter monitor: EPS: PPM: CXR: Chest CT Scan: Radiography Diagnostic Testing: Radiology Impression Echocardiogram 06/24/24 13:47 Interpretation Summary The estimated ejection fraction is 60 %. There is mild biatrial dilatation. Trivial mitral valve insufficiency. Trivial aortic valve insufficiency. Ordering Physician: Raffaele Kaur Performed By: Jose Sánchez RCS
--- NOTE | 2024-06-25 13:13 | EKG12_ITS ---
Test Reason : CHEST PAIN Blood Pressure : */* mmHG Vent. Rate : 62 BPM Atrial Rate : * BPM P-R Int : * ms QRS Dur : 148 ms QT Int : 422 ms P-R-T Axes : * -25 13 degrees QTcB Int : 428 ms Atrial fibrillation Right bundle branch block Abnormal ECG No previous ECGs available Confirmed by BECKIE BLAS, TONY ([id number]), social media editor CAMPOS PIERCE ([id number]) on 06/30/2024 7:44:49 AM Referred By: BECKIE Confirmed By: TONY BUTTS MD
--- NOTE | 2024-06-25 13:30 | EKG12_ITS ---
Test Reason : AM EKG Blood Pressure : */* mmHG Vent. Rate : 80 BPM Atrial Rate : * BPM P-R Int : * ms QRS Dur : 144 ms QT Int : 402 ms P-R-T Axes : * -27 15 degrees QTcB Int : 463 ms Atrial fibrillation Right bundle branch block Abnormal ECG When compared with ECG of 26-Jun-2024 05:44, MANUAL COMPARISON REQUIRED DATA IS UNCONFIRMED Confirmed by BECKIE BLAS, TONY ([id number]), advertising editor DEMETRIA PENA ([id number]) on 06/29/2024 2:03:32 PM Referred By: SEBASTIAN Confirmed By: TONY BUTTS MD
[2024-06-25 14:09] LABS: Bedside Glucose 189 mg/dL (74-106)
--- NOTE | 2024-06-25 14:15 | CRPHASE1 ---
Patient Communication Patient Information Former Patient:: Phase I PHII Cardiac Rehab Discussed with Patient:: Yes (booklet given to spouse) Guide to Cardiac Rehab Given to Patient:: Yes Cardiac Rehab Facility Choice List Given to Patient:: Yes Communication to Cardiac Rehab Choice Program [facility] CR PHII:: Communication Given to CR and Refer to [facility] Choice Program Other:: Communication Given to CR Educational Therapy Teacher:: Gracia Chavez PCP:: Raffaele Olguin Refer Phase II Cardiac Rehab:: Yes Post Discharge Choice Letter Given to Patient:: Yes PHII Cardiac Rehab Referral:: [facility] Phase I Charge:: Level I - Education Medical/Surgical History Medical History CO:: Yes CAD:: Yes Congestive Heart Failure: Pulmonary:: Yes COPD:: Yes Diabetes:: Yes Diabetes Type II:: Yes CVA/TIA: PAD:: Yes Surgical History PTCA:: Yes Ambulation Ambulation Notes:: per spouse independent but slow to get around, and legally blind Cardiac Rehabilitation Info Program Information Cardiac Rehabilitation Program Information: Cardiac Rehab The cardiac rehab team at [facility] consists of highly skilled exercise physiologists, nurses, respiratory therapists and physicians working together with you. Our purpose is to help you have a full recovery and achieve the goals you set for yourself. Over the years many of our patients have returned to activities they assumed they would never do again! We can help restore your confidence and motivation to make lifestyle changes that can have a significant impact on your health and quality of life! We can help answer questions and concerns you may have about exercise, lifestyle, medications, diet, stress and anxiety which are common following a hospitalization. WE monitor ECG and vital signs during exercise and discuss your progress with you and report to your physician(s). Cardiac Rehab is proven to help reduce readmissions, improve functional capacity and lower recurrence of problems with your heart. Our Cardiac Rehab program is Certified by the [employer] Pulmonary [employer] (AACVPR) and Accredited by the [employer] through our [facility]. You can contact us at . We invite you to call us with your questions or to get started in our program. If you have other questions or concerns be sure to ask your physician/provider during your follow-up visit. WE look forward to seeing you!
--- NOTE | 2024-06-25 14:18 | CRPH1.INSTRU ---
General Education Discussed with Patient CAD and cardiac anatomy and function:: Family communicates acknowledgment and Needs reinforcement Explanation of diagnoses and procedures:: Family communicates acknowledgment and Needs reinforcement Sign/Symptoms of GA:: Family communicates acknowledgment Antiplatelet therapy: Family communicates acknowledgment and Needs reinforcement Proper use of NTG-SL: Family communicates acknowledgment and Needs reinforcement Emergency procedures and activation of EMS: Family communicates acknowledgment and Needs reinforcement Compliance of all prescribed medications: Family communicates acknowledgment and Needs reinforcement Smoking Risk Factors Patient Nicotine/Smoking Risk Factors Are:: Never smoked Response Code Nicotine/Smoking Response Code:: Not instructed Dyslipidemia Risk Factors Patient Dyslipidemia Risk Factors Are:: Total Cholesterol, Triglycerides, HDL and LDL Recommendations Recommendations Include:: Therapeutic Lifestyle Change dietary guidelines Response Code Dyslipidemia Response Code:: Family communicates acknowledgment and Needs reinforcement Overweight/Obesity Risk Factors Patient Overweight/Obesity Risk Factors Are:: Obesity - > or = 30 (30.1) Recommendations Recommendations Include:: Weight loss of 5-10%, Reduced calorie diet and Exercise 5-7 times/week Response Code Overweight/Obesity:: Family communicates acknowledgment and Needs reinforcement Hypertension Recommendations Recommendations Include:: Maintain BP <130/85 Response Code Hypertension:: Family communicates acknowledgment and Needs reinforcement Heart Disease Recommendations Recommendations Include:: Educated family members of importance of prevention of heart disease Response Code Heart Disease Response Code:: Family communicates acknowledgment and Needs reinforcement Diabetes Risk Factors Patient Diabetes Risk Factors Are:: Elevated blood sugars Date of HgbA1c:: 05/09/23 (6.5) Recommendations Recommendations Include:: Maintain fasting blood sugars 70-110 md/dL, Maintain HgbA1c of 6% or less, Monitor blood sugar as prescribed, Diabetic dietary guidelines and Decrease/maintain body weight Response Code Diabetes:: Family communicates acknowledgment and Needs reinforcement Metabolic Syndrome Risk Factors Patient Metabolic Syndrome Risk Factors Are [3 of 5]:: Fasting blood sugar > 100 mg/dL Recommendations Recommendations Include:: Reinforce compliance to risk factor modifications, Patient is diabetic and Encouraged follow-up with Primary Care Physician Response Code Metabolic Syndrome Response Code:: Family communicates acknowledgment and Needs reinforcement Sedentary Risk Factors Patient Sedentary Risk Factors Are:: Lack of regular exercise Recommendations Recommendations Include:: Aerobic exercise 5-7 times/week for 20-30 minutes continuously, Benefits of regular exercise, Discussed home walking program and Monitored Outpatient Cardiac Rehab Response Code Sedentary Response Code:: Family communicates acknowledgment and Needs reinforcement Stress Risk Factors Patient Stress Risk Factors Are:: Patient denies stress as a risk factor
--- NOTE | 2024-06-25 14:22 | CL.I_ITS ---
Patient Name: ARMIN CHAND Study Date: 06/25/2024 Performing: Iliana Chavez MD Ht: 75 inches 190.5 cm : 1950 Wt: 241.1 lbs 109.2 kg Age: 74 Gender: male BSA: 2.37 PROCEDURE(S) PERFORMED DC02-(50448)LHC/COR IC12-(26330/C9600)KESHIA W/WO PTCA, SINGLE CORONARY ARTERY CLINICAL PROFILE AND CO-MORBIDITIES Indications: Cardiac arrest, ventricular tachycardia Heart Failure: None CONCLUSIONS CAD as described. Successful drug-eluting stent to ostial RCA as described. RECOMMENDATIONS DESCRIPTION OF PROCEDURE The patient arrived to the procedure lab. The risks and benefits of the procedure as well as a full description of our services here and lack of surgical backup were fully explained to the patient and/or their significant other prior to the catheterization. The Timeout was completed, verifying the correct patient and procedure. The patient's procedural site was prepped and draped in the usual fashion. Local anesthetic was given subcutaneously to right radial region with Lidocaine 2%. Using a modified Seldinger technique, arterial access was obtained via the right radial artery, a 6Fr sheath was inserted.. Left Coronary Artery selective angiography was performed in multiple views using a 5 Fr. JL3.5 catheter. Right Coronary Artery selective angiography was then performed in multiple views using a 5 Fr. JR 4 catheter JR 4 Guide catheter was inserted and engaged into the RCA. BMW Guide wire was advanced to the RCA. Emerge 3x12 Balloon catheter was inserted. Balloon catheter was advanced across lesion in the right coronary, ostial. PTCA balloon inflated at 10 atms for 25 secs. Angiogram performed post balloon dilatation. 4x15 Hendry Drug Eluting stent was inserted. Drug Eluting stent was advanced across the lesion in the right coronary, ostial. Angiogram performed post stent deployment. Angiogram performed post stent deployment. Angiogram performed post stent deployment. The arterial sheath was pulled and a TR Band was applied for hemostasis. 12cc of air CORONARY ANGIOGRAPHY DOMINANCE: Right Dominant LEFT MAIN: 30 % Stenosis LEFT ANTERIOR DESCENDING ARTERY: Mild luminal irregularities CIRCUMFLEX ARTERY: PROX CIRC: 40 % Stenosis RIGHT CORONARY ARTERY: OSTIAL RCA: 80 % Stenosis INTERVENTION INFORMATION LESION SITE: RCA (Ostial) Lesion Complexity: High/C, chronic total occlusion: No, lesion at bifurcation: No, thrombus present: No, lesion length: 10 mm, culprit lesion: Yes, Previously treated lesion: No Pre Stenosis: 80 % Pre intervention LETI flow: 3 PROCEDURE: Drug Eluting Stent with pre and post dilatation Post Stenosis: 0 % Post intervention LETI flow: 3 Lesion Devices: Medtronic 6 Fr JR4.0 SH 100cm Guide Catheter Matthews .014 190cm BMW Callahan Straight Andrae Sci EMERGE MR 3.00x12 BALLOON Medtronic 4.0 x 15 NIDHI FRONTIER KESHIA COMPLICATIONS No Complications PROCEDURE MEDICATIONS Fentanyl 25 mcg IV Versed 0.5 mg IV Oxygen: 2 L/min via nasal cannula Oxygen: 4 L/min via nasal cannula Aspirin (325mg) 1 Tabs PO 06/25/2024 12:12:27 Benadryl 50 mg IV 06/25/2024 12:12:40 Brilinta 180 mg PO @ 06/25/2024 12:51:18 Heparin given IA 06/25/2024 12:31:09 Heparin 6000 unit(s) IV 06/25/2024 12:50:18 Solu-medrol 125 mg IV 06/25/2024 12:12:45 SUMMARY OF HEMODYNAMIC DATA Time AIR REST ECG 12:11:49 AO 91/53 (75) SA 12:34:57 AO 128/74 (99) 12:45:37 Signed By Iliana Chavez MD On 06/25/2024 14:22:02 Iliana Chavez MD
[2024-06-25] MEDS: Insulin Lispro 100 UNIT/ML INSULN.PEN SC ×2 (16:32→20:34)
[2024-06-25] MEDS: Rivaroxaban 10 MG Tablet PO (16:33)
[2024-06-25 16:48] LABS: Bedside Glucose 194 mg/dL (74-106)
--- NOTE | 2024-06-25 17:52 | NURSING ---
Pt suddenly became verbally abusive to staff and screaming obscenities- fuck you bitch... fuck this... I'm getting the fuck out of here... I'm gonna call my rn geriatric... reoriented multiple times to time, place, situation without effect. Pt's asked to leave d/t the fact she was escalating the situation/argumentative back to him and relaying to us this is how he talks to me all the time. Of note, earlier the patient and family members were observed using abusive language towards each other and the pt's son kept addressing pt as dumb ass.
[2024-06-25] MEDS: Morphine 2 MG/ML Syringe IV (18:04)
[2024-06-25] MEDS: TICAGRELOR 90 MG TABLET PO ×2 (20:34)
[2024-06-25] MEDS: Pravastatin 40 MG Tablet PO (20:34)
[2024-06-25 20:59] LABS: Bedside Glucose 305 mg/dL (74-106)
[2024-06-25] MEDS: Vancomycin Trough/Random Due 1 LAB MC (23:16)
[2024-06-25] MEDS: oxyCODONE 5 MG Tablet PO (23:21)
[2024-06-25] MEDS: Acetaminophen 325 MG Tablet 650 MG PO (23:21)
[2024-06-25 23:49] LABS: Vancomycin, Trough Level 21.4 ug/mL (5.0-15.0)
[2024-06-26] VITALS (21 sets, daily range): BP systolic 105–157; BP diastolic 65–92; PULSE 64–94; RESP 14–24; TEMP 36.6–36.9; O2SAT 93–100; BMI 29.9
--- NOTE | 2024-06-26 00:07 | PCM.RX.CS ---
Consult Antibiotic Management Pharmacy has been consulted to manage selected antibiotic: Vancomycin Type of Intervention Type of Consult: Follow-up Labs Labs: Sodium 141 mmol/L (136-145) 06/25/24 05:10 Potassium 4.2 mmol/L (3.5-5.1) 06/25/24 05:10 Chloride 109 mmol/L (98-107) H 06/25/24 05:10 Carbon Dioxide 26.0 mmol/L (21.0-32.0) 06/25/24 05:10 Anion Gap 6 (5-15) 06/25/24 05:10 BUN 20 mg/dL (7-18) H 06/25/24 05:10 Creatinine 0.83 mg/dL (0.70-1.30) 06/25/24 05:10 Est GFR (MDRD) Af Amer 115 mL/min (>60) 06/25/24 05:10 Est GFR (MDRD) Non-Af 95 mL/min (>60) 06/25/24 05:10 BUN/Creatinine Ratio 24.0 RATIO (10-20) H 06/25/24 05:10 Glucose 171 mg/dL (74-106) H 06/25/24 05:10 Vancomycin Trough 21.4 ug/mL (5.0-15.0) H 06/25/24 23:15 Microbiology Microbiology: Microbiology 06/24/24 15:00 Urine, Random Legionella Antigen - Final 06/24/24 15:00 Urine, Random Streptococcus pneumoniae Antigen (M - Final 06/24/24 12:59 Mucosa - Nasopharyngeal SARS-CoV-2, Influenza & RSV (PCR) - Final Goal Trough Goal Trough: 15-20 mcg/mL Pharmacy Plan for Drug Dosing Pharmacy Plan for Drug Dosing: Pharmacy Service will continue to monitor and adjust dosing as required. TROUGH 21.4 @ 10 HOURS. HOLD DOSE AND DRAW RANDOM LEVEL IN 8 HOURS Follow-Up Labs Follow-Up Labs: Trough: Vancomycin Date/Time Labs Ordered Labs to be done on [date and time ordered]: 06/26 @ 0700
[2024-06-26] MEDS: Morphine 2 MG/ML Syringe IV (00:31)
[2024-06-26] MEDS: 0.9% Saline Lock 10 ML Syringe IV (00:32)
[2024-06-26] MEDS: Levothyroxine 150 MCG Tablet PO (05:18)
[2024-06-26] MEDS: Piperacil/Tazobactam 3.375 GM in 0.9% Normal Saline (50mL MB+) 50 ML IV ×3 (05:18→21:11)
[2024-06-26] MEDS: Vancomycin Trough/Random Due 1 LAB MC (06:48)
--- NOTE | 2024-06-26 07:03 | PN.HOSP_ITS ---
Reason for Visit Reason for Visit: Diagnoses Sepsis, unspecified organism (06/24/24) Anemia, unspecified (06/24/24) Cardiac arrest, cause unspecified (06/24/24) Ventricular tachycardia, unspecified (06/24/24) Longstanding persistent atrial fibrillation (06/24/24) Pneumonitis due to inhalation of food and vomit (06/24/24) Syncope and collapse (06/24/24) Other specified abnormal findings of blood chemistry (06/24/24) Subjective Subjective Feeling well. Objective Data Objective Data Vital Signs: Vital Signs Temp Pulse Resp BP Pulse Ox O2 Del Method O2 Flow Rate 36.9 C 79 16 140/88 H 98 Room Air 2 06/26/24 00:00 06/26/24 06:00 06/26/24 06:00 06/26/24 06:00 06/26/24 06:00 06/26/24 06:00 06/25/24 23:00 Oxygen Flow Rate (L/min) 2 Oxygen Delivery Method Room Air Weight: 108.6 kg Body Mass Index (BMI) 29.9 Intake & Output: Intake and Output for Last 24 Hours 06/24/24 06/25/24 06/26/24 23:59 23:59 23:59 Intake Total 3730.50 / 3730.50 1220 / 1220 50 / 50 Output Total 550 / 550 1700 / 1700 650 / 650 Balance 3180.50 / 3180.50 -480 / -480 -600 / -600 Lab / Micro Data 06/26/24 06:50 06/26/24 06:50 Labs: Laboratory Results - last 24 hr 06/25/24 05:10: Plt Count TNP, Platelet Estimate ADEQUATE 06/25/24 13:44: POC Glucose 189 H 06/25/24 16:30: POC Glucose 194 H 06/25/24 20:32: POC Glucose 305 H 06/25/24 23:15: Vancomycin Trough 21.4 H Micro: Microbiology 06/24/24 15:00 Urine, Random Legionella Antigen - Final 06/24/24 15:00 Urine, Random Streptococcus pneumoniae Antigen (M - Final 06/24/24 12:59 Mucosa - Nasopharyngeal SARS-CoV-2, Influenza & RSV (PCR) - Final Radiography Diagnostic Testing: Radiology Impression Echocardiogram 06/24/24 13:47 Interpretation Summary The estimated ejection fraction is 60 %. There is mild biatrial dilatation. Trivial mitral valve insufficiency. Trivial aortic valve insufficiency. Ordering Physician: Raffaele Kaur Performed By: Jose Sánchez RCS Physical Exam Const alert and no apparent distress HEENT head/scalp atraumatic and moist oral mucous membranes Resp normal respiratory effort, no retractions, no use of accessory muscles and clear to auscultation bilaterally Cardio regular rate, regular rhythm, S1 normal heart sound and S2 normal heart sound GI normal to inspection, nondistended, normoactive bowel sounds, soft to palpation, non-tender and non-distended Neuro Sensorium / Orientation: awake and alert Psych affect normal Assessment & Plan Assessment/Plan (1) Sepsis: PLAN: SIRS 3/4, qSOFA 3 2/2 pneumonia BCx pending (2) Aspiration pneumonia: PLAN: unclear if pt was choking this episode, but did have an episode this weekend. Abx with pip/tazo and vancomycin. antigens for strep and legionella negative. SCx (3) Syncope: PLAN: From the tachyarrhythmia Echo shows an EF 60%. (4) Ventricular tachycardia: PLAN: v afib with aberrancy noted on EMS strip that patient has a wide complex tachycardia, the defibrillation, then bradycardia since on the floor, he was bradycardic with pauses. With the RCA PCI, will see if this helps in the arrhythmia. If not, pateitn may need a PPM. (5) Anemia: PLAN: Hemoglobin went from 13.2 to 10.9. Unclear significance at this time. Monitor. (6) NSTEMI, initial episode of care: PLAN: Stent to RCA on 06/25 on ASA, ticagrelor, pravastatin PLAN: Plan Chronic conditions * DM2: SSI for now. If he can start eating, resume his glargine and prandial insulins. Hold metfomin for now given the lactic acidosis. * hypothyroidism: continue levothyroxine * depression: continue venlafexine when able to take oral. Tearful about his home situation as well as blindness. * afib: continue rivaroxaban. * blindness. VTE prophylaxis: not indicated as already on rivaroxaban Code status: verified with patient and family, Full Code. Charges/Coding Visit Charges Inpatient E&M: 17713 Subs Hosp L2
[2024-06-26 07:21] LABS: Absolute Lymphocyte Count 0.82 X10^3/uL (0.83-4.51); Absolute Neutrophil Count 4.8 X10^3/uL (2.0-7.7); Basophil# 0.02 X10^3/uL; Basophil% 0.3 % (0-1); Eosinophil# 0.01 X10^3/uL; Eosinophils% 0.2 % (0-5); Hemoglobin 11.7 g/dL (13.0-16.5); Lymphocyte # 0.82 X10^3/ul (0.83-4.51); Lymphocyte % 13.1 % (19-41); Mean Corp Hgb Conc 33.4 g/dL (32-36); Mean Corpuscular Hgb 31.5 pg (27.0-32.0); Mean Corpuscular Volume 94.3 fL (80-94); Monocyte% 9.6 % (0-10); NRBC Flagged by Analyzer 0.3 % (0-5); Neutrophil # 4.78 X10^3/uL (2.7-7.7); POSITIVE COUNT YES; RBC Distribution Width CV 14.2 % (11.6-14.6); RBC Distribution Width SD 48.4 fl (35.1-43.9); Red Blood Count 3.71 M/mm3 (4.6-6.2); White Blood Count 6.3 K/mm3 (4.4-11.0)
[2024-06-26 07:43] LABS: ALB/GLOB Ratio 0.6 RATIO (0.9-2.4); AST(SGOT) 25 U/L (15-37); Alanine Aminotransfer ALT/SGPT 34 U/L (16-61); Albumin, Serum 2.6 g/dL (3.2-5.0); Alkaline Phosphatase 92 U/L (45-117); Anion Gap 6 (5-15); BUN 19 mg/dL (7-18); BUN/Creat Ratio 21.2 RATIO (10-20); Calcium,Total 8.4 mg/dL (8.5-10.1); Chloride 110 mmol/L (98-107); EST Glomerular Filtration Rate 88 mL/min (>60); Est Glom Filt Rate - Afr Amer 106 mL/min (>60); Estimated Creatinine Clearance 92.98 ml/min; Globulin 4.2 g/dL (2.2-4.2); Glucose 244 mg/dL (74-106); Magnesium 1.9 mg/dL (1.6-2.6); Phosphorus 2.4 mg/dL (2.5-4.9); Potassium 3.4 mmol/L (3.5-5.1); Protein, Total 6.8 g/dL (6.4-8.2); Sodium Level 140 mmol/L (136-145); Vancomycin, Random Level 15.9 ug/mL (0.0-15.0)
--- NOTE | 2024-06-26 07:56 | PCM.RX.CS ---
Consult Antibiotic Management Pharmacy has been consulted to manage selected antibiotic: Vancomycin Type of Intervention Type of Consult: Follow-up Labs Labs: Sodium 140 mmol/L (136-145) 06/26/24 06:50 Potassium 3.4 mmol/L (3.5-5.1) L 06/26/24 06:50 Chloride 110 mmol/L (98-107) H 06/26/24 06:50 Carbon Dioxide 24.0 mmol/L (21.0-32.0) 06/26/24 06:50 Anion Gap 6 (5-15) 06/26/24 06:50 BUN 19 mg/dL (7-18) H 06/26/24 06:50 Creatinine 0.90 mg/dL (0.70-1.30) 06/26/24 06:50 Est GFR (MDRD) Af Amer 106 mL/min (>60) 06/26/24 06:50 Est GFR (MDRD) Non-Af 88 mL/min (>60) 06/26/24 06:50 BUN/Creatinine Ratio 21.2 RATIO (10-20) H 06/26/24 06:50 Glucose 244 mg/dL (74-106) H 06/26/24 06:50 Vancomycin Trough 21.4 ug/mL (5.0-15.0) H 06/25/24 23:15 Random Vancomycin 15.9 ug/mL (0.0-15.0) H 06/26/24 06:50 Microbiology Microbiology: Microbiology 06/24/24 15:00 Urine, Random Legionella Antigen - Final 06/24/24 15:00 Urine, Random Streptococcus pneumoniae Antigen (M - Final 06/24/24 12:59 Mucosa - Nasopharyngeal SARS-CoV-2, Influenza & RSV (PCR) - Final Pharmacy Plan for Drug Dosing Pharmacy Plan for Drug Dosing: VANCOMYCIN LEVEL RECEIVED Current Vancomycin Dose: on hold Number of Doses Received: 3 Vancomycin Level: 15.9 mg/dL Hours Since Last Dose: 17 Renal Function: SCr 0.9 mg/dL, CrCl 92 mL/min Renal Function Trend: stable Lab/Micro: blood cx pending Vancomycin Plan/Comments: 17 hour random level is now therapeutic at 15.9mg/dL (goal 15-20). Will resume dosing at a decreased dose of 1250mg Q12 and get a trough prior to 4th dose of new regimen. Pending Level: 06/27/24 @ 6644 Pharmacy Service will continue to monitor and adjust dosing as required.
[2024-06-26 08:08] LABS: Differential Indicated SCAN CRITERIA MET
[2024-06-26 08:09] LABS: Platelet Estimate SLT DEC (ADEQ)
[2024-06-26] MEDS: Aspirin E.C. 81 MG Tablet PO (08:22)
[2024-06-26] MEDS: Clopidogrel Bisulfate 75 MG Tablet PO (08:22)
[2024-06-26] MEDS: FLU VACCINE **HIGH DOSE** TV 24-25 180 MCG/0.5 ML SYRINGE IM (08:22)
[2024-06-26] MEDS: Insulin Lispro 100 UNIT/ML INSULN.PEN SC ×4 (08:24→21:15)
[2024-06-26 09:08] LABS: Cholesterol 112 mg/dL (200); High Density Lipoprotein 56 mg/dL; Triglycerides 51 mg/dL; Very Low Density Lipoprotein 10 mg/dL (5-40)
[2024-06-26] MEDS: Vancomycin HCl 1,250 MG in 0.9% Normal Saline (250mL Bag) 250 ML 167 MG IV ×2 (09:43→19:23)
--- NOTE | 2024-06-26 10:00 | EKG12_ITS ---
Test Reason : VTACH Blood Pressure : */* mmHG Vent. Rate : 92 BPM Atrial Rate : * BPM P-R Int : * ms QRS Dur : 108 ms QT Int : 402 ms P-R-T Axes : * -34 27 degrees QTcB Int : 497 ms Atrial fibrillation with premature ventricular or aberrantly conducted complexes Left axis deviation Incomplete right bundle branch block Junctional ST depression, probably normal Prolonged QT Abnormal ECG No previous ECGs available Confirmed by BECKIE BLAS, TONY ([id number]), film editor supervisor DEMETRIA PENA ([id number]) on 06/29/2024 2:03:11 PM Referred By: SEBASTIAN Confirmed By: TONY BUTTS MD
[2024-06-26 11:47] LABS: Bedside Glucose 218 mg/dL (74-106)
--- NOTE | 2024-06-26 13:50 | PCM.PN.CARD ---
Subjective Subjective Denies any cardiac complaints. No significant pauses on telemetry. Patient continues to have frequent PVCs Objective Data Vital Signs: Vital Signs Temp Pulse Resp BP Pulse Ox O2 Del Method O2 Flow Rate 97.9 F 74 18 105/65 98 Room Air 2 06/26/24 12:00 06/26/24 13:00 06/26/24 13:00 06/26/24 13:00 06/26/24 13:00 06/26/24 13:00 06/25/24 23:00 Oxygen Flow Rate (L/min) 2 Oxygen Delivery Method Room Air Weight: 239 lb 6.752 oz Body Mass Index (BMI) 29.9 Intake & Output: Intake and Output for Last 24 Hours 06/24/24 06/25/24 06/26/24 23:59 23:59 23:59 Intake Total 3730.50 / 3730.50 1220 / 1220 375 / 375 Output Total 550 / 550 1700 / 1700 650 / 650 Balance 3180.50 / 3180.50 -480 / -480 -275 / -275 Lab / Micro Data 06/26/24 06:50 06/26/24 06:50 Labs: Laboratory Results - last 24 hr 06/25/24 13:44: POC Glucose 189 H 06/25/24 16:30: POC Glucose 194 H 06/25/24 20:32: POC Glucose 305 H 06/25/24 23:15: Vancomycin Trough 21.4 H 06/26/24 06:50: WBC 6.3, RBC 3.71 L, Hgb 11.7 L, Hct 35.0 L, MCV 94.3 H, MCH 31.5, MCHC 33.4, RDW Std Deviation 48.4 H, RDW Coeff of Marifer 14.2, Plt Count TNP, Immature Gran % (Auto) 0.800, Neut % (Auto) 76.0 H, Lymph % (Auto) 13.1 L, [place] % (Auto) 9.6, Eos % (Auto) 0.2, Baso % (Auto) 0.3, Absolute Neuts (auto) 4.8, Absolute Lymphs (auto) 0.82 L, Nucleated RBC % 0.3, Platelet Estimate SLT DEC, Sodium 140, Potassium 3.4 L, Chloride 110 H, Carbon Dioxide 24.0, Anion Gap 6, BUN 19 H, Creatinine 0.90, Estim Creat Clear Calc 92.98, Est GFR (MDRD) Af Amer 106, Est GFR (MDRD) Non-Af 88, BUN/Creatinine Ratio 21.2 H, Glucose 244 H, Calcium 8.4 L, Phosphorus 2.4 L, Magnesium 1.9, Total Bilirubin 0.70, AST 25, ALT 34, Alkaline Phosphatase 92, Total Protein 6.8, Albumin 2.6 L, Globulin 4.2, Albumin/Globulin Ratio 0.6 L, Triglycerides 51, Cholesterol 112, LDL Cholesterol 46, VLDL Cholesterol 10, HDL Cholesterol 56, Random Vancomycin 15.9 H 06/26/24 11:28: POC Glucose 218 H Micro: Microbiology 06/24/24 11:15 Blood Culture (Wb) - Left Hand Blood Culture - Preliminary No growth in 48 hours. 06/24/24 11:15 Blood Culture (Wb) - Anticubital Right Blood Culture - Preliminary No growth in 48 hours. Cardiology Labs/Tests 06/26/24 06:50: WBC 6.3, RBC 3.71 L, Hgb 11.7 L, Hct 35.0 L, MCV 94.3 H, MCH 31.5, MCHC 33.4, Plt Count TNP, Immature Gran % (Auto) 0.800, Neut % (Auto) 76.0 H, Lymph % (Auto) 13.1 L, [place] % (Auto) 9.6, Eos % (Auto) 0.2, Baso % (Auto) 0.3, Absolute Neuts (auto) 4.8, Nucleated RBC % 0.3, Sodium 140, Potassium 3.4 L, Chloride 110 H, Carbon Dioxide 24.0, Anion Gap 6, BUN 19 H, Creatinine 0.90, Est GFR (MDRD) Af Amer 106, Est GFR (MDRD) Non-Af 88, BUN/Creatinine Ratio 21.2 H, Glucose 244 H, Calcium 8.4 L, Phosphorus 2.4 L, Magnesium 1.9, Total Bilirubin 0.70, Triglycerides 51, Cholesterol 112, LDL Cholesterol 46, VLDL Cholesterol 10, HDL Cholesterol 56 Rhythm: EKG: ECHO: Stress Test: Cardiac Cath: PCI: CT Surgery: Holter monitor: EPS: PPM: CXR: Chest CT Scan: Physical Exam Const alert and oriented x3 HEENT normocephalic Eyes no scleral icterus Resp normal respiratory effort Extremity no pedal edema Assessment & Plan Assessment/Plan (1) Ventricular tachycardia: PLAN: Patient's rhythm strips when the paramedics arrived at his home were reviewed. Patient has a wide-complex tachycardia that could be ventricular tachycardia. A-fib with RVR is also in the differential. Patient's potassium and magnesium were unremarkable. 2D echo revealed preserved ejection fraction. Patient had significant lesion in the ostial RCA that was treated with drug-eluting stent. We will start the patient on metoprolol 25 mg p.o. twice daily. Continue telemonitoring. If patient does not have significant bradycardia or tachycardia overnight, he could be discharged home tomorrow. (2) Cardiac arrest: (3) Elevated troponin: (4) Longstanding persistent atrial fibrillation: PLAN: Adding metoprolol. Continue Xarelto. Charges/Coding Visit Charges Inpatient E&M: 25608 [facility] Hosp L1
--- NOTE | 2024-06-26 14:15 | CASEMGMT ---
Addendum entered by Bautista Garcia 06/26/24 16:30: Per Dr Chapman, pt is now agreeable to going to a SNF. MG ANDERSON back to room. Pt states this is correct. Questions answered. Pt's 1st preference is [facility]. Per LINDY Bruce, there are not beds available in TCU. SW to f/u with pt and tomorrow. Original Note: MG ANDERSON NOTE: Therapy has worked w/pt and SNF is recommended. MG ANDERSON to room. Pt sitting up in chair, @ bedside. Pt and made aware of therapy's recommendations of SNF. states she observed pt working w/therapy today and states she also feels pt should go to a SNF, stating, There's no way I can take care of him the way his right now. Pt became upset and began talking very loudly and swearing, stating that they would keep him there longer than he wanted and that he wouldn't be able to go back home. MG ANDERSON educated him that SNF is a short-term stay for skilled care/therapy to help him get stronger with the plan for him to return home. MG ANDERSON also reinforced that discharge plan is his choice/his decision and no one would make him do anything he does not want to do. He continued to swear and talk loudly and would not listen to MG ANDERSON or his , who was also trying to talk with him. MG ANDERSON did let pt and both know, that since today was pt's 1st time out of bed since admission, he may be stronger/do better tomorrow when up. They were made aware therapy would work w/him again tomorrow and either LINDY or MONICA would f/u with them to discuss discharge planning again. did ask for SNF list to review. A list of SNF providers including quality and resource use data and consistent with the patient?s preferred geographic region, medical needs, and insurance network were provided from the [employer] Guide. Plan: TBD. LINDY or MONICA to f/u with pt and tomorrow after therapy has worked w/pt again. Luis BROWER RN, CM
[2024-06-26] MEDS: Metoprolol Tartrate 25 MG Tablet PO ×2 (14:53→21:11)
[2024-06-26 15:23] LABS: Bedside Glucose 169 mg/dL (74-106)
[2024-06-26] MEDS: Rivaroxaban 10 MG Tablet PO (17:39)
[2024-06-26] MEDS: oxyCODONE 5 MG Tablet PO (18:25)
[2024-06-26] MEDS: Acetaminophen 325 MG Tablet 650 MG PO (18:25)
[2024-06-26] MEDS: Pravastatin 40 MG Tablet PO (21:15)
[2024-06-26 21:38] LABS: Bedside Glucose 250 mg/dL (74-106)
[2024-06-27 03:00] VITALS: BP 118/81; PULSE 70; RESP 18; TEMP 37; O2SAT 95
[2024-06-27] MEDS: Levothyroxine 150 MCG Tablet PO (05:31)
[2024-06-27] MEDS: Piperacil/Tazobactam 3.375 GM in 0.9% Normal Saline (50mL MB+) 50 ML IV (05:37)
[2024-06-27 05:38] VITALS: BMI 29.9
--- NOTE | 2024-06-27 07:39 | PN.HOSP_ITS ---
Reason for Visit Reason for Visit: Diagnoses Sepsis, unspecified organism (06/24/24) Anemia, unspecified (06/24/24) Non-ST elevation (NSTEMI) myocardial infarction (06/24/24) Cardiac arrest, cause unspecified (06/24/24) Ventricular tachycardia, unspecified (06/24/24) Longstanding persistent atrial fibrillation (06/24/24) Pneumonitis due to inhalation of food and vomit (06/24/24) Syncope and collapse (06/24/24) Other specified abnormal findings of blood chemistry (06/24/24) Subjective Subjective Code blue called. Patient was speaking with the nurse and then he went unresponsive and shaking and was noted to be in V. tach. CODE BLUE was called and chest compressions were initiated. Shortly after the code team arrived, the patient was coming to and had a palpable pulse. He was talking and then alert. He did not require defibrillation nor any medications. We had an EKG and then it happened again where he went into V. tach and was unresponsive. By that time the defibrillator pads were already on and so he was defibrillated once and came to. Patient complains of chest pain post CPR from the initial bout. Objective Data Objective Data Vital Signs: Vital Signs Temp Pulse Resp BP Pulse Ox O2 Del Method O2 Flow Rate 37.0 C 70 18 118/81 H 95 Room Air 2 06/27/24 03:00 06/27/24 03:00 06/27/24 03:00 06/27/24 03:00 06/27/24 03:00 06/27/24 03:00 06/25/24 23:00 Oxygen Flow Rate (L/min) 2 Oxygen Delivery Method Room Air Weight: 108.6 kg Body Mass Index (BMI) 29.9 Intake & Output: Intake and Output for Last 24 Hours 06/25/24 06/26/24 06/27/24 23:59 23:59 23:59 Intake Total 1220 / 1220 709.5 / 709.5 50 / 50 Output Total 1700 / 1700 900 / 900 550 / 550 Balance -480 / -480 -190.5 / -190.5 -500 / -500 Lab / Micro Data 06/26/24 06:50 06/26/24 06:50 Labs: Laboratory Results - last 24 hr 06/26/24 06:50: WBC 6.3, RBC 3.71 L, Hgb 11.7 L, Hct 35.0 L, MCV 94.3 H, MCH 31.5, MCHC 33.4, RDW Std Deviation 48.4 H, RDW Coeff of Marifer 14.2, Plt Count TNP, Immature Gran % (Auto) 0.800, Neut % (Auto) 76.0 H, Lymph % (Auto) 13.1 L, [place] % (Auto) 9.6, Eos % (Auto) 0.2, Baso % (Auto) 0.3, Absolute Neuts (auto) 4.8, A bsolute Lymphs (auto) 0.82 L, Nucleated RBC % 0.3, Platelet Estimate SLT DEC, Sodium 140, Potassium 3.4 L, Chloride 110 H, Carbon Dioxide 24.0, Anion Gap 6, B UN 19 H, Creatinine 0.90, Estim Creat Clear Calc 92.98, Est GFR (MDRD) Af Amer 106, Est GFR (MDRD) Non-Af 88, BUN/Creatinine Ratio 21.2 H, Glucose 244 H, C alcium 8.4 L, Phosphorus 2.4 L, Magnesium 1.9, Total Bilirubin 0.70, AST 25, ALT 34, Alkaline Phosphatase 92, Total Protein 6.8, Albumin 2.6 L, Globulin 4.2, A lbumin/Globulin Ratio 0.6 L, Triglycerides 51, Cholesterol 112, LDL Cholesterol 46, VLDL Cholesterol 10, HDL Cholesterol 56, Random Vancomycin 15.9 H 06/26/24 11:28: POC Glucose 218 H 06/26/24 15:03: POC Glucose 169 H 06/26/24 21:14: POC Glucose 250 H Micro: Microbiology 06/24/24 11:15 Blood Culture (Wb) - Left Hand Blood Culture - Preliminary No growth in 48 hours. 06/24/24 11:15 Blood Culture (Wb) - Anticubital Right Blood Culture - Preliminary No growth in 48 hours. 06/24/24 15:00 Urine, Random Legionella Antigen - Final 06/24/24 15:00 Urine, Random Streptococcus pneumoniae Antigen (M - Final 06/24/24 12:59 Mucosa - Nasopharyngeal SARS-CoV-2, Influenza & RSV (PCR) - Final Physical Exam Narrative POCUS: Indication is for cardiac arrest and respiratory failure. PLAX limited due to overlying lung tissue. Apical view was limited as well due to poor quality of image. Unable to visualized and substernal view. Through the lung gaytan, patient had B-lines noted anteriorly. Patient had movement of his pleural in all views anterior and lateral views of his lungs. No evidence of any pneumothorax based on these images. Const alert Constitutional Narrative: Uncomfortable post chest compressions. It was noted that his pulse ox dropped down to 83% on room air and was placed on oxygen with oxygen improved to the 90s. HEENT HEENT Narrative: Compromised right eye. Resp Resp Narrative: Coarse breath sounds bilaterally Cardio regular rate, regular rhythm, S1 normal heart sound and S2 normal heart sound GI normal to inspection, nondistended, normoactive bowel sounds, soft to palpation, non-tender and non-distended Extremity normal to inspection, full ROM and no clubbing, cyanosis or edema General Extremity: edema Neuro Sensorium / Orientation: awake and alert Assessment & Plan Assessment/Plan (1) Sepsis: PLAN: SIRS 3/4, qSOFA 3 2/2 pneumonia BCx pending (2) Aspiration pneumonia: PLAN: unclear if pt was choking this episode, but did have an episode this weekend. Abx with pip/tazo and vancomycin. antigens for strep and legionella negative. SCx (3) Syncope: PLAN: From the tachyarrhythmia Echo shows an EF 60%. (4) Ventricular tachycardia: PLAN: v afib with aberrancy noted on EMS strip that patient has a wide complex tachycardia, the defibrillation, then bradycardia since on the floor, he was bradycardic with pauses. With the RCA PCI, will see if this helps in the arrhythmia. Patient had 2 cardiac events today. Initial patient revived after CPR and second patient revived after defibrillation x 1. I discussed with Dr. Chavez and because of the ventricular tachycardia and cardiac arrest post catheterization, it is felt that he needs a defibrillator. He is not reaching out to hospitalist us to facilitate that. After the second cardiac events, he recommended an amiodarone bolus of 300 cc followed by drip. Will check labs. (5) Anemia: PLAN: Hemoglobin went from 13.2 to 10.9. Unclear significance at this time. Monitor. (6) NSTEMI, initial episode of care: PLAN: Stent to RCA on 06/25 on ASA, ticagrelor, pravastatin (7) Acute hypoxic respiratory failure: PLAN: Patient was previously on room air but now requiring 4 L. Will check a chest x-ray. Bedside POCUS showed some curly B-lines and anterior lung gaytan concerning for development of CHF. Will check formal x-ray to better evaluate that. Wean oxygen as tolerated. Partially this is also due to splinting from the chest pain that he experienced from CPR. PLAN: Plan Chronic conditions * DM2: SSI for now. If he can start eating, resume his glargine and prandial insulins. Hold metfomin for now given the lactic acidosis. * hypothyroidism: continue levothyroxine * depression: continue venlafexine when able to take oral. Tearful about his home situation as well as blindness. * afib: continue rivaroxaban. * blindness. VTE prophylaxis: not indicated as already on rivaroxaban Code status: verified with patient and family, Full Code. Greater than 70 minutes of critical care time which greater than 50% was spent at bedside responding to the code, evaluating the patient, discussing with cardiology, performing bedside POCUS. I called the patient's and the number provided charts. No one picked up and I did leave a message for her to call the intensive care unit. Charges/Coding Procedures Hospitalists Procedures: [id number] Critical Care 1st Hr
[2024-06-27 08:36] VITALS: O2SAT 91
[2024-06-27 08:39] LABS: Allen Test Positive; Base Excess -2 mmol/L (-2 to +2); Blood Gas Specimen Type ART; Mode Not entered; O2 Delivery Device Cannula; PO2 50 mmHG (75-100); SITE L Radial; SO2 84 % (95-99); Total Carbon Dioxide 24 mmol/L; pCO2 38.3 mmHg (35-45); pH 7.39 (7.35-7.45)
--- NOTE | 2024-06-27 08:54 | ECHOLC_ITS ---
Reason For Study: CAD/ASHD Procedure This was a limited 2D transthoracic echocardiogram. The study was technically difficult. Contrast injection was performed. Exam performed portable in ICU/CCU. MMode/2D Measurements & Calculations SV(MOD-sp4): 64.3 ml SV(sp4-el): 64.1 ml LVAd ap4: 32.1 cm2 LVLd ap4: 7.3 cm SI(MOD-sp4): 27.2 ml/m2 EDV(MOD-sp4): 117.5 ml EDV(sp4-el): 119.8 ml LVAs ap4: 20.6 cm2 LVLs ap4: 6.5 cm ESV(MOD-sp4): 53.2 ml ESV(sp4-el): 55.8 ml EF(MOD-sp4): 54.7 % EF(sp4-el): 53.5 % ECHO/Echo Limited w/Contrast Interpretation Summary Limited study LVEF is 70% with no regional wall motion abnormalities Ordering Physician: Raffaele Kaur Referring Physician: RAFFAELE BASS Performed By: Ernestine Duvall RCS
--- NOTE | 2024-06-27 09:00 | RAD_ITS ---
HISTORY: cardiac arrest. TECHNIQUE: XR Chest 1 View. COMPARISON: 06/24/2024. FINDINGS: LINES/TUBES: None. CARDIOMEDIASTINAL BORDERS: Unchanged enlargement of the cardiac silhouette. LUNGS: Diffuse pulmonary vascular congestion and mild bibasilar atelectasis with elevation of the left hemidiaphragm again seen. Gaseous distention of bowel in the upper abdomen. PLEURA: Probable trace right pleural effusion. RAD/Chest 1 View (Portable) IMPRESSION: No significant interval change in cardiomegaly with mild pulmonary vascular congestion and bibasilar atelectasis. Gaseous distention of bowel in the upper abdomen. Electronically Signed: Sandra Thomson MD at 10:46 EST ,
[2024-06-27 09:07] LABS: Absolute Lymphocyte Count 1.68 X10^3/uL (0.83-4.51); Absolute Neutrophil Count 4.3 X10^3/uL (2.0-7.7); Basophil# 0.04 X10^3/uL; Basophil% 0.6 % (0-1); Eosinophil# 0.13 X10^3/uL; Eosinophils% 1.9 % (0-5); Hematocrit 34.5 % (40-54); Hemoglobin 11.7 g/dL (13.0-16.5); Lymphocyte # 1.68 X10^3/ul (0.83-4.51); Lymphocyte % 24.4 % (19-41); Mean Corp Hgb Conc 33.9 g/dL (32-36); Mean Corpuscular Hgb 31.9 pg (27.0-32.0); Monocyte# 0.62 X10^3/uL; NRBC Flagged by Analyzer 0.3 % (0-5); Neutrophil # 4.26 X10^3/uL (2.7-7.7); Neutrophil % 61.9 % (47-70); POSITIVE COUNT YES; RBC Distribution Width CV 14.3 % (11.6-14.6); Red Blood Count 3.67 M/mm3 (4.6-6.2); White Blood Count 6.9 K/mm3 (4.4-11.0)
[2024-06-27 09:14] LABS: International Normalized Ratio 1.3; Prothrombin Time (Protime)PT. 16.1 SECONDS (11.7-14.9)
[2024-06-27] MEDS: Amiodarone 300 MG in Dextrose 5%-Water (100mL Bag) 100 ML 600 MG IV BOLUS (09:16)
[2024-06-27 09:26] LABS: ALB/GLOB Ratio 0.7 RATIO (0.9-2.4); AST(SGOT) 27 U/L (15-37); Alanine Aminotransfer ALT/SGPT 33 U/L (16-61); Albumin, Serum 2.8 g/dL (3.2-5.0); Alkaline Phosphatase 91 U/L (45-117); Anion Gap 7 (5-15); BUN 24 mg/dL (7-18); BUN/Creat Ratio 24.1 RATIO (10-20); Calcium,Total 8.8 mg/dL (8.5-10.1); Chloride 106 mmol/L (98-107); EST Glomerular Filtration Rate 77 mL/min (>60); Est Glom Filt Rate - Afr Amer 94 mL/min (>60); Estimated Creatinine Clearance 83.68 ml/min; Globulin 4.1 g/dL (2.2-4.2); Glucose 244 mg/dL (74-106); Magnesium 1.6 mg/dL (1.6-2.6); Phosphorus 2.7 mg/dL (2.5-4.9); Potassium 3.3 mmol/L (3.5-5.1); Protein, Total 6.9 g/dL (6.4-8.2); Sodium Level 139 mmol/L (136-145)
[2024-06-27] MEDS: Vancomycin HCl 1,250 MG in 0.9% Normal Saline (250mL Bag) 250 ML 33.3 MG IV (09:32)
[2024-06-27] MEDS: Amiodarone 360 MG in Dextrose 5% Viaflo Bag 192.8 ML 33.3 MG CONT INF (09:35)
[2024-06-27 09:53] LABS: Differential Indicated SCAN CRITERIA MET
[2024-06-27 09:55] LABS: Differential Comment SCANNED; Platelet Estimate ADEQUATE (ADEQ); Platelet Morphology CLUMPED; Red Cell Morphology NORM C+C NORMAL (NORM C&C)
--- NOTE | 2024-06-27 10:00 | EKG12_ITS ---
Test Reason : UNRESPONSIVE Blood Pressure : */* mmHG Vent. Rate : 87 BPM Atrial Rate : * BPM P-R Int : * ms QRS Dur : 150 ms QT Int : 404 ms P-R-T Axes : * -28 7 degrees QTcB Int : 486 ms Atrial fibrillation with premature ventricular or aberrantly conducted complexes Right bundle branch block Abnormal ECG When compared with ECG of 27-Jun-2024 05:20, MANUAL COMPARISON REQUIRED DATA IS UNCONFIRMED Confirmed by BECKIE BLAS, TONY ([id number]), editor dictionary DEMETRIA PENA ([id number]) on 06/29/2024 2:02:20 PM Referred By: SEBASTIAN Confirmed By: TONY BUTTS MD
--- NOTE | 2024-06-27 10:36 | CASEMGMT ---
Social Work SW spoke w/pt's and son in room, offered support as a Code Blue has been called three times this morning for pt. Pt is to be transferred to [place] today. SW remains availalbe for support to family as needed. ELISA Wood
--- NOTE | 2024-06-27 11:00 | NURSING ---
Med-flight personnel at bedside. Report given and patient transferred to their cot. Pt transfered to [facility] for cardiac care.
--- NOTE | 2024-06-27 12:20 | PCM.DC.SUM ---
Providers Date of Admission: 06/24/24 Primary Care Physician: Dr. Raffaele Olguin MD Consultations 06/24/24 12:54 Consult: Onc/Wound/regulatory affairs strategy specialist Routine Comment: Reason for Consult:: LLE ulcer Comments:: has been previously seen at wound center 06/24/24 15:32 Consult: Cardiology Routine Consulting Provider: Gracia Chavez Reason for Consult: VT and bradycardia EMERGENT Consult: No MD Notified: Yes Date Notified: 06/24/24 Time Notified: 15:32 Method of Notification: Verbal Reason For Visit: SEPSIS Diagnosis Discharge Diagnosis (1) Sepsis: Status: Acute Code(s): A41.9 - Sepsis, unspecified organism Plan: SIRS 3/4, qSOFA 3 2/2 pneumonia BCx pending (2) Aspiration pneumonia: Status: Acute Code(s): J69.0 - Pneumonitis due to inhalation of food and vomit Plan: unclear if pt was choking this episode, but did have an episode this weekend. Abx with pip/tazo and vancomycin. antigens for strep and legionella negative. SCx (3) Syncope: Status: Acute Code(s): R55 - Syncope and collapse Plan: From the tachyarrhythmia Echo shows an EF 60%. (4) Ventricular tachycardia: Status: Acute Code(s): I47.20 - Ventricular tachycardia, unspecified Plan: v afib with aberrancy noted on EMS strip that patient has a wide complex tachycardia, the defibrillation, then bradycardia since on the floor, he was bradycardic with pauses. With the RCA PCI, will see if this helps in the arrhythmia. Patient had 2 cardiac events today. Initial patient revived after CPR and second patient revived after defibrillation x 1. I discussed with Dr. Chavez and because of the ventricular tachycardia and cardiac arrest post catheterization, it is felt that he needs a defibrillator. He is not reaching out to hospitalist us to facilitate that. After the second cardiac events, he recommended an amiodarone bolus of 300 cc followed by drip. Will check labs. (5) Anemia: Status: Acute Code(s): D64.9 - Anemia, unspecified Plan: Hemoglobin went from 13.2 to 10.9. Unclear significance at this time. Monitor. (6) NSTEMI, initial episode of care: Status: Acute Code(s): I21.4 - Non-ST elevation (NSTEMI) myocardial infarction Plan: Stent to RCA on 06/25 on ASA, ticagrelor, pravastatin (7) Acute hypoxic respiratory failure: Status: Acute Code(s): J96.01 - Acute respiratory failure with hypoxia Plan: Patient was previously on room air but now requiring 4 L. Will check a chest x-ray. Bedside POCUS showed some curly B-lines and anterior lung gaytan concerning for development of CHF. Will check formal x-ray to better evaluate that. Wean oxygen as tolerated. Partially this is also due to splinting from the chest pain that he experienced from CPR. Plan Chronic conditions DM2: SSI for now. If he can start eating, resume his glargine and prandial insulins. Hold metfomin for now given the lactic acidosis. hypothyroidism: continue levothyroxine depression: continue venlafexine when able to take oral. Tearful about his home situation as well as blindness. afib: continue rivaroxaban. blindness. VTE prophylaxis: not indicated as already on rivaroxaban Code status: verified with patient and family, Full Code. Greater than 70 minutes of critical care time which greater than 50% was spent at bedside responding to the code, evaluating the patient, discussing with cardiology, performing bedside POCUS. I called the patient's and the number provided charts. No one picked up and I did leave a message for her to call the intensive care unit. Medications at Discharge Home Medications pravastatin 40 mg tablet 40 mg PO QHS cholesterol 07/30/14 rivaroxaban 20 mg tablet (Xarelto) 10 mg PO DINNER blood thinner 08/16/19 metformin 500 mg tablet,extended release 24 hr 1,000 mg PO DAILY 03/02/20 insulin glargine 100 unit/mL subcutaneous solution (Lantus U-100 Insulin) 10 unit subcut 0800 10/05/21 PEP device #1 ea 11/14/21 levothyroxine 150 mcg tablet 150 mcg PO DAILY 11/14/21 cholecalciferol (vitamin D3) 25 mcg (1,000 unit) capsule (Vitamin D3) 25 mcg PO DAILY 01/02/22 ferrous sulfate 325 mg (65 mg iron) tablet 325 mg PO DAILY supplement 01/02/22 tramadol 50 mg tablet 50 mg PO Q6H PRN pain #14 tabs 01/05/22 albuterol sulfate 90 mcg/actuation aerosol inhaler 2 puff inhalation Q6H PRN shortness of breath or wheezing #8.5 grams 09/10/22 insulin lispro 100 unit/mL subcutaneous pen (Humalog KwikPen (U-100) Insulin) 12 unit subcut BID 09/10/22 furosemide 40 mg tablet 40 mg PO .twice weekly 03/13/23 venlafaxine 225 mg tablet,extended release 24 hr 225 mg PO DAILY 06/24/24 Hospital Course Operations None Procedures 2-D Echocardiogram, Cardiac catheterization and CPR performed (x3) Summary of Care Provided Minutes Spent on Discharge: 80 Hospital Course: Patient presents after having a syncopal episode at home. initiated chest compressions and then EMS arrived and defibrillated the patient. Initially was told me that was PEA but patient was ventricular tachycardia. Patient revived after that and on the floor he had some bradycardia and some sinus pauses. Patient was taken to [facility] and had a stent placed to the RCA. Patient tolerated the procedure well and is bradycardia and pauses seem to resolved. Then on the , patient had V. tach arrest x 3. The first time he was resuscitated with chest compressions and then the next 2 times, after the defibrillator pads were already placed, he required fibrillation. Case was discussed after the first episode with Dr. Chavez. And he recommended transfer to a tertiary facility. He reached out to [facility] and spoke with Dr. Del Valle who is a accepting physician. After the second event, he had recommended Amio bolus of 30 mg and then a drip which was started. Then after his third bout it was found that his potassium magnesium were low and the replacements were ordered. Chest x-ray was ordered that showed pulmonary vascular congestion. Patient was life flighted given these 3 events to get him over to the [facility] as soon as possible. Case was discussed with the patient's who is at bedside. Also was concerned patient had sepsis from possible aspiration pneumonia was started on broad-spectrum antibiotics which will be continued for now. Weight / BMI Weight Weight: 108.6 kg Body Mass Index (BMI) 29.9 ABG / Lab / Microbiology Data 06/27/24 08:40 06/27/24 08:40 Laboratory: Laboratory Results - last 24 hr 06/26/24 15:03: POC Glucose 169 H 06/26/24 21:14: POC Glucose 250 H 06/27/24 08:40: WBC 6.9, RBC 3.67 L, Hgb 11.7 L, Hct 34.5 L, MCV 94.0, MCH 31.9, MCHC 33.9, RDW Std Deviation 49.0 H, RDW Coeff of Marifer 14.3, Plt Count , Immature Gran % (Auto) 2.200 H, Neut % (Auto) 61.9, Lymph % (Auto) 24.4, [place] % (Auto) 9.0, Eos % (Auto) 1.9, Baso % (Auto) 0.6, Absolute Neuts (auto) 4.3, Absolute Lymphs (auto) 1.68, Nucleated RBC % 0.3, Differential Comment SCANNED, Platelet Estimate ADEQUATE, Plt Morphology Comment CLUMPED, RBC Morphology NORM C+C, PT 16.1 H, INR 1.3, Sodium 139, Potassium 3.3 L, Chloride 106, Carbon Dioxide 25.0, Anion Gap 7, BUN 24 H, Creatinine 1.00, Estim Creat Clear Calc 83.68, Est GFR (MDRD) Af Amer 94, Est GFR (MDRD) Non-Af 77, BUN/Creatinine Ratio 24.1 H, Glucose 244 H, Calcium 8.8, Phosphorus 2.7, Magnesium 1.6, Total Bilirubin 0.90, AST 27, ALT 33, Alkaline Phosphatase 91, Total Protein 6.9, Albumin 2.8 L, Globulin 4.1, Albumin/Globulin Ratio 0.7 L Microbiology: Microbiology 06/24/24 11:15 Blood Culture (Wb) - Left Hand Blood Culture - Preliminary No growth in 48 hours. 06/24/24 11:15 Blood Culture (Wb) - Anticubital Right Blood Culture - Preliminary No growth in 48 hours. 06/24/24 15:00 Urine, Random Legionella Antigen - Final 06/24/24 15:00 Urine, Random Streptococcus pneumoniae Antigen (M - Final 06/24/24 12:59 Mucosa - Nasopharyngeal SARS-CoV-2, Influenza & RSV (PCR) - Final ABG: ABG 06/27/24 08:34 Specimen Type ART Sample Site L Radial pH 7.39 Bicarbonate Actual 23.0 Total CO2 24 Base Excess -2 O2 Saturation 84 L O2 % 2.0 ABG pCO2 38.3 ABG pO2 50 L Rony Test Positive O2 Delivery Device Cannula Vent Mode Not entered Radiography Diagnostic Testing: Radiology Impression Chest X-Ray 06/27/24 09:00 IMPRESSION: No significant interval change in cardiomegaly with mild pulmonary vascular congestion and bibasilar atelectasis. Gaseous distention of bowel in the upper abdomen. Electronically Signed: Sandra Thomson MD at 10:46 EST , D/C Instructions DC O2, CPAP, BIPAP Needs Home O2 Discharge instructions: No Meaningful Use Info Meaningful Use Meaningful Use Diagnoses (Choose all that apply): AMI AMI/Post PCI/Angioplasty Aspirin given w/in 24hrs of arrival?: Yes ASA at discharge?: Yes Antiplatelet Therapy at Discharge:: Yes Statins at discharge?: No Reason statins not ordered:: Drug Interaction Suhas/ARB at discharge?: No Reason Suhas/ARB not ordered:: Drug Interaction Beta Nayana at discharge?: Yes Done w/ Acute TN measure.: Yes Documented LVEF (%): 60 Ischemic Stroke Statin Dosing Therapy Reference: STATIN DOSE THERAPY REFERENCE: * Patients > 75 years receive moderate or high dose statin therapy. * Patients 75 years or YOUNGER should receive HIGH intensity statin dose unless contraindicated. You will be required to document reason for non-treatment if statin daily dose does not meet guidelines. HIGH DOSE STATIN THERAPY DAILY Atorvastatin > than or = to 40 mg Rosuvastatin > than or = to 20 mg Amlodipine + Atorvastatin > than or = to 2.5/40 mg Ezetimibe + Simvastatin 10/80 mg Simvastatin 80mg Discharge Plan Admission Admit Date/Time: 06/24/24 11:02 Attending Provider: Raffaele Kaur Primary Care Provider: Raffaele Olguin Consulting Providers: Gracia Chavez Discharge Orders/Prescriptions Prescriptions: No Action metformin 500 mg tablet extended release 24 hr 1,000 mg PO DAILY Patient Comments: TAKE 2 TABLETS EVERY DAY levothyroxine 150 mcg tablet 150 mcg PO DAILY (DME) PEP device See Rx Instructions .Route .MEDSUPPLY Qty: 1 0RF Rx Instructions: with training furosemide 40 mg tablet 40 mg PO .twice weekly albuterol sulfate 90 mcg/actuation HFA aerosol inhaler 2 puff inhalation Q6H PRN (Reason: shortness of breath or wheezing) Qty: 8.5 1RF pravastatin 40 MG tablet 40 mg PO QHS Xarelto 20 MG tablet 10 mg PO DINNER insulin glargine [Lantus U-100 Insulin] 100 unit/mL Solution 10 unit SUBCUT 0800 insulin lispro [Humalog KwikPen Insulin] 100 unit/mL insulin pen 12 unit SUBCUT BID ferrous sulfate 325 mg (65 mg iron) Tablet 325 mg PO DAILY Patient Comments: UNSURE IF STILL TAKING cholecalciferol (vitamin D3) [Vitamin D3] 25 mcg (1,000 unit) Capsule 25 mcg PO DAILY tramadol 50 mg tablet 50 mg PO Q6H PRN (Reason: pain) Qty: 14 0RF venlafaxine 225 mg tablet extended release 24hr 225 mg PO DAILY Referrals / Follow Up: Raffaele Olguin MD [Primary Care Provider] - Disposition Disposition (needs filled in before D/C Order can be placed): DC/Tx to Another Type of HCF Charges/Coding Visit Charges Inpatient E&M: 61525 Disch Hosp >30min
== END 2024-06-27 11:30 | disposition other institution (70) | DRG 853 ==
LOC: ED 11:08 → ICU 11:10
PROVIDERS: Emergency Provider Emergency Medicine; PCP Family Medicine
DX: A41.9 Sepsis, unspecified organism (principal); J69.0 Pneumonitis due to inhalation of food and vomit; I21.4 Non-ST elevation (NSTEMI) myocardial infarction; J96.01 Acute respiratory failure with hypoxia; I47.20 Ventricular tachycardia, unspecified; J44.0 Chronic obstructive pulmonary disease with (acute) lower respiratory infection; I48.11 Longstanding persistent atrial fibrillation; I50.32 Chronic diastolic (congestive) heart failure; L97.929 Non-pressure chronic ulcer of unspecified part of left lower leg with unspecified severity; E11.622 Type 2 diabetes mellitus with other skin ulcer; D64.9 Anemia, unspecified; R55 Syncope and collapse; I11.0 Hypertensive heart disease with heart failure; F32.A Depression, unspecified; E11.65 Type 2 diabetes mellitus with hyperglycemia; E78.5 Hyperlipidemia, unspecified; Z79.4 Long term (current) use of insulin; I95.9 Hypotension, unspecified; I25.10 Atherosclerotic heart disease of native coronary artery without angina pectoris; I25.84 Coronary atherosclerosis due to calcified coronary lesion; H54.7 Unspecified visual loss; G89.29 Other chronic pain; Z79.890 Hormone replacement therapy; Z87.891 Personal history of nicotine dependence; Z79.01 Long term (current) use of anticoagulants; Z79.84 Long term (current) use of oral hypoglycemic drugs; I49.3 Ventricular premature depolarization; Z79.891 Long term (current) use of opiate analgesic; R79.89 Other specified abnormal findings of blood chemistry
CPT/HCPCS: 36600; 71045; 74230; 80048; 80053; 80061; 80202; 82803; 82962; 83605; 83735; 84100; 84484; 85025; 85610; 87040; 87449; 87631; 90662; 92526; 92610; 92611; 92928; 92950; 93005; 93306; 93308; 93454; 97162; 97167; 97802; 99152; 99153; 99285; C1887; Q9957; Q9967; A4216; C1725; C1769; C1874; C1894; C8924; C8929; C9600

== ENCOUNTER 2024-07-07 01:52 | Emergency (ER) | payer MEDICARE, OTHER, SELFPAY ==
[2024-07-07 01:54] VITALS: BP 100/65; PULSE 105; RESP 20; TEMP 36.1; O2SAT 92; BMI 31.1
[2024-07-07 02:06] VITALS: O2SAT 86; O2SAT 94
--- NOTE | 2024-07-07 02:17 | CT_ITS ---
PROCEDURE: CTA CHST, ABD, PEL W AND/OR WO REASON FOR EXAM: Back pain. TECHNIQUE: Chest CTA with intravenous contrast and 3D reconstructions. Abdomen and pelvis CT using the same contrast dose. COMPARISON: 05/25/2024 CT. FINDINGS: Lines and tubes: Left chest pacemaker. Mediastinum: Enlarged/prominent mediastinal lymph nodes. The largest lymph node is a right paratracheal lymph node which measures 1.5 cm in short axis diameter. Heart: Normal heart size. No pericardial effusion. Thoracic Aorta: No evidence of acute traumatic aortic injury. Lungs and Airways: Moderate bilateral pleural effusions with moderate adjacent lower lobe density with attenuation greater than paraspinal musculature favoring atelectasis. Pulmonary interlobular septal thickening favoring edema. No pneumothorax. Mild apical paraseptal emphysema. Bones: Mildly displaced right anterolateral 3rd through 7th rib fractures. Nondisplaced right posterolateral 11th rib fractures. Mildly displaced right 2nd through 7th anterolateral rib fractures. Unchanged compression deformities of T11, T12, L2, L3, L4, and L5. Vertebroplasties of T11, L2, and L3. New mild compression deformity of L1. Degenerative changes of the spine. Grade 1 anterolisthesis of L2 on L3. Liver: Unremarkable. Gallbladder: Unremarkable. Spleen: Unremarkable. Pancreas: Unremarkable. Adrenals: Unremarkable. Kidneys: Unremarkable. Bladder: Unremarkable. Reproductive Organs: Unremarkable. Bowel: Normal caliber small bowel. Dense colonic stool. Vasculature: Moderate atherosclerosis. Peritoneum / Retroperitoneum: No free fluid. No free air. CT/CTA Chst, Abd, Pel W and/or WO IMPRESSION: Multiple bilateral rib fractures. Mild compression of L1 which is new since the 05/25/2024 CT. Stable compression deformities of T11, T12, L2, L3, L4, and L5 with vertebropla sties of T11, L2, and L3. Enlarged mediastinal lymph nodes. Moderate pleural effusions with moderate associated lower lobe atelectasis. Pulmonary edema. Mild paraseptal emphysema. One or more dose reduction techniques were used (e.g., Automated exposure contr ol, adjustment of the mA and/or kV according to patient size, use of iterative reconstruction technique). Reading Location: [id number]
--- NOTE | 2024-07-07 02:19 | EKG12_ITS ---
Test Reason : DYSRHYTHMIA Blood Pressure : */* mmHG Vent. Rate : 71 BPM Atrial Rate : * BPM P-R Int : * ms QRS Dur : 112 ms QT Int : 408 ms P-R-T Axes : * -9 63 degrees QTcB Int : 443 ms Accelerated Junctional rhythm with frequent ventricular-paced complexes Low voltage QRS Nonspecific ST and T wave abnormality Abnormal ECG Confirmed by DEE BLAS, MARTHA ([id number]), television news video editor CAMPOS PIERCE ([id number]) on 07/09/2024 6:58:02 AM Referred By: TAHMINA Confirmed By: MARTHA PRICE MD
[2024-07-07 02:30] LABS: Absolute Lymphocyte Count 1.48 X10^3/uL (0.83-4.51); Absolute Neutrophil Count 3.8 X10^3/uL (2.0-7.7); Basophil# 0.04 X10^3/uL; Basophil% 0.7 % (0-1); Eosinophil# 0.12 X10^3/uL; Hematocrit 34.3 % (40-54); Hemoglobin 11.1 g/dL (13.0-16.5); Lymphocyte # 1.48 X10^3/ul (0.83-4.51); Lymphocyte % 24.6 % (19-41); Mean Corp Hgb Conc 32.4 g/dL (32-36); Mean Corpuscular Hgb 31.5 pg (27.0-32.0); Mean Corpuscular Volume 97.4 fL (80-94); Mean Platelet Vol. 13.6 fl (6.2-12.0); Monocyte# 0.51 X10^3/uL; Monocyte% 8.5 % (0-10); NRBC Flagged by Analyzer 0.5 % (0-5); Neutrophil # 3.77 X10^3/uL (2.7-7.7); Neutrophil % 62.7 % (47-70); Platelet Count 226 K/mm3 (150-450); Red Blood Count 3.52 M/mm3 (4.6-6.2)
[2024-07-07 02:40] LABS: International Normalized Ratio 1.9; Prothrombin Time (Protime)PT. 22.1 SECONDS (11.7-14.9)
[2024-07-07 02:41] LABS: Partial Thromboplast Time 39.3 Seconds (24.1-36.2)
[2024-07-07 02:45] LABS: AST(SGOT) 19 U/L (15-37); Alanine Aminotransfer ALT/SGPT 19 U/L (16-61); Albumin, Serum 2.7 g/dL (3.2-5.0); Alkaline Phosphatase 133 U/L (45-117); Anion Gap 8 (5-15); BUN 19 mg/dL (7-18); BUN/Creat Ratio 18.6 RATIO (10-20); Bilirubin, Direct 0.43 mg/dL (0.00-0.30); Calcium,Total 8.9 mg/dL (8.5-10.1); Chloride 102 mmol/L (98-107); Creatinine, Serum 1.02 mg/dL (0.70-1.30); EST Glomerular Filtration Rate 75 mL/min (>60); Est Glom Filt Rate - Afr Amer 91 mL/min (>60); Estimated Creatinine Clearance 83.71 ml/min; Glucose 137 mg/dL (74-106); Lipase 21 U/L (13-75); Magnesium 1.9 mg/dL (1.6-2.6); Potassium 3.8 mmol/L (3.5-5.1); Protein, Total 7.7 g/dL (6.4-8.2); Sodium Level 138 mmol/L (136-145)
[2024-07-07] MEDS: 0.9% Normal Saline (500mL Bag) 500 ML 999 ML IV (02:45)
[2024-07-07 04:00] VITALS: BP 124/81; PULSE 70; RESP 18; O2SAT 96
--- NOTE | 2024-07-07 04:09 | EX.ED.DYSGE1 ---
HPI History of Present Illness Chief Complaint: Abd Pain Informant: patient and SNF Narrative Narrative: Patient is a 74-year-old male with past medical history of insulin-dependent diabetes hypertension hyperlipidemia and atrial fibrillation for which she had a pacemaker placed at the end of June. Nursing reports that he also had a bout of cardiopulmonary arrest and had CPR during his stay for pacemaker placement. This evening he reportedly began screaming out in pain and had apparent change to his mental status and therefore he was sent to the ER for evaluation The patient cannot describe the pain just moans as it is occurring but denies any recent trauma such as an accidental fall or sick symptoms [facility] Medical History (Updated 07/08/24 @ 07:[address] Dhiraj Carlton, DO) ICD (implantable cardioverter-defibrillator) in place Coronary artery disease Kidney stones Atrial fibrillation Wears dentures Blind Depression Thyroid disease Insulin dependent diabetes mellitus Diabetes Ambulates with cane Anemia High cholesterol Injury of head and neck Former smoker Shortness of breath on exertion History of edema History of Holter monitoring History of echocardiogram Cardiology follow-up encounter History of atrial fibrillation Infected cyst of skin Open wound of back without complication Venous insufficiency of both lower extremities Ulcer of left lower extremity with fat layer exposed Longstanding persistent atrial fibrillation Left ventricular diastolic dysfunction Chronic diastolic (congestive) heart failure Right bundle branch block (RBBB) Essential (primary) hypertension COPD (chronic obstructive pulmonary disease) Anxiety and depression Obesity (BMI 30-39.9) Hyperlipidemia Hypothyroidism DM type 2 (diabetes mellitus, type 2) Poorly controlled type 2 diabetes mellitus Sepsis Head trauma Hx of transfusion of whole blood Back problem Home Medications ?Medication ?Instructions ?Recorded ?Last Taken ?Type pravastatin 40 mg tablet 40 mg PO QHS cholesterol 07/30/14 06/23/24 History rivaroxaban 20 mg tablet (Xarelto) 10 mg PO DINNER blood thinner 08/16/19 06/23/24 History metformin 500 mg tablet,extended 1,000 mg PO DAILY 03/02/20 06/23/24 History release 24 hr insulin glargine 100 unit/mL 10 unit subcut 0800 10/05/21 06/24/24 History subcutaneous solution (Lantus U-100 Insulin) PEP device #1 ea 11/14/21 Unknown Rx levothyroxine 150 mcg tablet 150 mcg PO DAILY 11/14/21 06/23/24 History cholecalciferol (vitamin D3) 25 25 mcg PO DAILY 01/02/22 06/23/24 History mcg (1,000 unit) capsule (Vitamin D3) ferrous sulfate 325 mg (65 mg 325 mg PO DAILY supplement 01/02/22 Unknown History iron) tablet tramadol 50 mg tablet 50 mg PO Q6H PRN pain #14 tabs 01/05/22 Unknown Rx albuterol sulfate 90 mcg/actuation 2 puff inhalation Q6H PRN 09/10/22 Unknown Rx aerosol inhaler shortness of breath or wheezing #8.5 grams insulin lispro 100 unit/mL 12 unit subcut BID 09/10/22 06/23/24 History subcutaneous pen (Humalog KwikPen (U-100) Insulin) furosemide 40 mg tablet 40 mg PO .twice weekly 03/13/23 Unknown History Held on 03/22/24. Instructions: MD Ordered venlafaxine 225 mg tablet,extended 225 mg PO DAILY 06/24/24 06/24/24 History release 24 hr Allergy/AdvReac Type Severity Reaction Status Date / Time shellfish derived Allergy Hives Verified 03/22/24 10:25 Family History (Updated 06/24/24 @ 13:[address] Raffaele Kaur DO) Mother Cancer Sister Heart disease Surgical History History of coronary artery stent placement (06/25/24) Hx of excision of dermoid cyst (~01/2022) Hx of cataract surgery History of inguinal hernia repair H/O hernia repair Social History Smoking Status: Former smoker quit date: 06/03/09 second hand exposure: No alcohol intake: never substance use type: does not use ROS ROS ED Constitutional Constitutional ED: Denies chills or fever(s) Eyes Eyes: Reports other Details: Patient has chronic blindness ENT ENT ED: Denies sore throat Cardiovascular Cardiovascular: Reports chest pain Respiratory/Chest Respiratory/Chest: Denies cough or dyspnea Gastrointestinal Gastrointestinal: Reports abdominal pain; Denies diarrhea, nausea or vomiting Genitourinary Genitourinary ED: Denies dysuria Musculoskeletal Musculoskeletal: Reports back pain Integumentary Denies rash Neurologic Neurologic: Denies headache(s) Hematologic/Lymphatic Hematologic/Lymphatic: Reports easy bleeding and easy bruising EXAM Physical Exam Const Vital Signs: 07/07/24 01:54 07/07/24 02:06 07/07/24 02:06 Temperature 96.9 F L Temperature Source Temporal Pulse Rate 105 H Respiratory Rate 20 H Blood Pressure 100/65 Blood Pressure Mean 76 Pulse Ox 92 86 94 Oxygen Delivery Method Room Air Room Air Nasal Cannula Oxygen Flow Rate (L/min) 2 Positive well nourished and well developed General Appearance ED: well developed HEENT HEENT Narrative: Normocephalic atraumatic Eyes Eyes Narrative: 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 Left pupil is reactive to light and extraocular muscles are intact Neck supple Neck Narrative: No bony deformity or step-off of the cervical spine no midline tenderness to palpation Chest Wall Chest Narrative: There is reproducible tenderness to the right anterior lateral chest wall rib regions 3-8 without obvious bony deformity or crepitance Patient has postsurgical changes to the left anterior chest wall secondary to insertion of pacemaker and wound is clean dry and intact without secondary findings to suggest infection Resp normal respiratory effort Resp Narrative: Breath sounds are diminished throughout with diffuse expiratory wheeze and faint rhonchi consistent with history of COPD but no signs of respiratory distress Cardio regular rate and regular rhythm GI non-tender, non-distended and no masses GI Narrative: Abdomen is soft nontender and nondistended with hypoactive bowel sounds No pulsatile mass Auscultation: hypoactive bowel sounds Palpation: soft Extremity normal to inspection Extremity Narrative: Pelvis is stable there is no shortening or external rotation of either lower extremity No physical exam findings for long bone injury Neuro oriented x3 and CN's II-XII intact bilaterally Sensorium / Orientation: alert Psych Mood & Affect: depressed Skin Skin Narrative: Patient has postsurgical changes to the left chest wall with old ecchymotic lesions but no secondary findings to suggest infection or new signs of trauma MDM MDM MDM Narrative Medical decision making narrative: Patient presented to the ER with stable vitals but was moaning in pain and with his recent pacemaker placement there is concern that he could have a postoperative infection or pneumothorax or dissection. Secondary to this a CTA of the chest abdomen and pelvis was obtained with basic laboratory studies. Labs revealed no clinically significant findings and CTA revealed multiple right-sided rib fractures without pneumothorax or dissection or PE. The patient's pain resolved spontaneously. There is concern that he may have been receiving electrical defibrillation from the recent implant of surgical device but by the time an EKG was obtained there is no signs of cardiac dysrhythmia such as ventricular fibrillation or tachycardia. The patient denied any recent traumas or falls and he does not have ecchymosis along the right chest wall but after talking [facility] and realizing he underwent CPR this would correlate with that as the cause of these multiple rib fractures. At this time he has returned to his baseline mental status his pain has resolved he does not have a PE or dissection or pneumothorax or intestinal infection or obstruction. Therefore I do not feel there is need for further evaluation in the ER and the patient is otherwise safe to return to the [facility] History & Record Review Discussion w/independent historian: Patient and Family Lab Data Attestation: I reviewed the patient's lab results. Labs: Laboratory Results - last 24 hr 07/07/24 07/07/24 02:15 02:17 WBC 6.0 RBC 3.52 L Hgb 11.1 L Hct 34.3 L MCV 97.4 H MCH 31.5 MCHC 32.4 RDW Std Deviation 55.0 H RDW Coeff of Marifer 16.0 H Plt Count 226 MPV 13.6 H Immature Gran % (Auto) 1.500 H Neut % (Auto) 62.7 Lymph % (Auto) 24.6 [place] % (Auto) 8.5 Eos % (Auto) 2.0 Baso % (Auto) 0.7 Absolute Neuts (auto) 3.8 Absolute Lymphs (auto) 1.48 Nucleated RBC % 0.5 PT 22.1 H INR 1.9 APTT 39.3 H Sodium 138 Potassium 3.8 Chloride 102 Carbon Dioxide 28.0 Anion Gap 8 BUN 19 H Creatinine 1.02 Estim Creat Clear Calc 83.71 Est GFR (MDRD) Af Amer 91 Est GFR (MDRD) Non-Af 75 BUN/Creatinine Ratio 18.6 Glucose 137 H Lactic Acid 2.0 Calcium 8.9 Magnesium 1.9 Total Bilirubin 1.00 Direct Bilirubin 0.43 H AST 19 ALT 19 Alkaline Phosphatase 133 H Total Protein 7.7 Albumin 2.7 L Globulin 5.0 H Lipase 21 Radiography Diagnostic Testing: Clinical Impression(s) from Imaging Studies Chest/Abdomen/Pelvis CTA 07/07/24 02:17 IMPRESSION: Multiple bilateral rib fractures. Mild compression of L1 which is new since the 05/25/2024 CT. Stable compression deformities of T11, T12, L2, L3, L4, and L5 with vertebroplasties of T11, L2, and L3. Enlarged mediastinal lymph nodes. Moderate pleural effusions with moderate associated lower lobe atelectasis. Pulmonary edema. Mild paraseptal emphysema. One or more dose reduction techniques were used (e.g., Automated exposure control, adjustment of the mA and/or kV according to patient size, use of iterative reconstruction technique). Reading Location: [facility] Discharge Plan Triage Chief Complaint: Abd Pain ED Provider: Dhiraj Carlton Dx/Rx/DC Orders Clinical Impression: Fracture of multiple ribs of right side, COPD (chronic obstructive pulmonary disease), Essential (primary) hypertension, Insulin dependent diabetes mellitus Instructions: ED Rib Fracture Prescriptions: No Action metformin 500 mg tablet extended release 24 hr 1,000 mg PO DAILY Patient Comments: TAKE 2 TABLETS EVERY DAY levothyroxine 150 mcg tablet 150 mcg PO DAILY (DME) PEP device See Rx Instructions .Route .MEDSUPPLY Qty: 1 0RF Rx Instructions: with training furosemide 40 mg tablet 40 mg PO .twice weekly albuterol sulfate 90 mcg/actuation HFA aerosol inhaler 2 puff inhalation Q6H PRN (Reason: shortness of breath or wheezing) Qty: 8.5 1RF pravastatin 40 MG tablet 40 mg PO QHS Xarelto 20 MG tablet 10 mg PO DINNER insulin glargine [Lantus U-100 Insulin] 100 unit/mL Solution 10 unit SUBCUT 0800 insulin lispro [Humalog KwikPen Insulin] 100 unit/mL insulin pen 12 unit SUBCUT BID ferrous sulfate 325 mg (65 mg iron) Tablet 325 mg PO DAILY Patient Comments: UNSURE IF STILL TAKING cholecalciferol (vitamin D3) [Vitamin D3] 25 mcg (1,000 unit) Capsule 25 mcg PO DAILY tramadol 50 mg tablet 50 mg PO Q6H PRN (Reason: pain) Qty: 14 0RF venlafaxine 225 mg tablet extended release 24hr 225 mg PO DAILY Primary Care Provider: Raffaele Olguin Referrals: Raffaele Olguin MD [Primary Care Provider] - Activity Restrictions/Additional Instructions: Your CT scan today did not reveal any type of pericardial effusion pneumonia pneumothorax or aortic dissection. It did show that you have fractures to your right third fourth sixth seventh and 11th rib. There is also a fracture to your L1 vertebra. Please continue your tramadol for pain control and follow-up with your doctor for repeat evaluation. Print Language: Azeri Disposition Disposition: Home, Self Care Discharge Date/Time: 07/07/24 06:48
[2024-07-07 04:23] VITALS: BP 124/81; PULSE 70; RESP 20; TEMP 36.8; O2SAT 95
[2024-07-07 06:24] LABS: Reflex Lactate? Y
== END 2024-07-07 06:48 | disposition home or self-care (01) ==
PROVIDERS: Emergency Provider Emergency Medicine; PCP Family Medicine; Visit Provider Emergency Medicine
DX: S22.43XA Multiple fractures of ribs, bilateral, initial encounter for closed fracture (principal); I11.0 Hypertensive heart disease with heart failure; I50.32 Chronic diastolic (congestive) heart failure; J44.9 Chronic obstructive pulmonary disease, unspecified; E11.9 Type 2 diabetes mellitus without complications; I25.10 Atherosclerotic heart disease of native coronary artery without angina pectoris; Z95.0 Presence of cardiac pacemaker; Z87.891 Personal history of nicotine dependence; X58.XXXA Exposure to other specified factors, initial encounter; Z95.5 Presence of coronary angioplasty implant and graft
CPT/HCPCS: 71275; 74174; 80048; 80076; 83605; 83690; 83735; 85025; 85610; 85730; 93005; 99285; Q9967; A4216

== ENCOUNTER → 2024-07-10 | Outpatient (CLI) | payer MEDICARE, OTHER, SELFPAY ==
[2024-07-10 15:54] LABS: AST(SGOT) 23 U/L (15-37); Alanine Aminotransfer ALT/SGPT 18 U/L (16-61); Albumin, Serum 2.7 g/dL (3.2-5.0); Alkaline Phosphatase 153 U/L (45-117); Bilirubin, Direct 0.42 mg/dL (0.00-0.30); Cholesterol 116 mg/dL (200); Globulin 4.7 g/dL (2.2-4.2); High Density Lipoprotein 58 mg/dL; Protein, Total 7.4 g/dL (6.4-8.2); Triglycerides 82 mg/dL; Very Low Density Lipoprotein 16 mg/dL (5-40)
== END | disposition home or self-care (01) ==
PROVIDERS: PCP Family Medicine; Referring Provider Nurse Practitioner Gerontology; Visit Provider Nurse Practitioner Gerontology
DX: E78.5 Hyperlipidemia, unspecified (principal)
CPT/HCPCS: 36415; 80061; 80076

== ENCOUNTER 2024-09-01 16:41 | Inpatient (IN) | payer MEDICARE, OTHER, SELFPAY ==
[2024-09-01] VITALS (13 sets, daily range): BP systolic 98–148; BP diastolic 66–80; PULSE 70–78; RESP 14–21; TEMP 36.4–36.8; O2SAT 94–99; BMI 29.7
--- NOTE | 2024-09-01 17:04 | ED.VIS.CHEST ---
HPI History of Present Illness Chief Complaint: Chest Pain Informant: patient Onset/Context/Timing Onset: Today Activity at onset: sudden Timing: Waxes and wanes Quality: Positive for Sharp Location: Substernal and - (And epigastric area) Worsened By: Movement of Torso Relieved By: Nothing Associated Symptoms: Positive for Diaphoresis and Lightheadedness; Negative for Nausea, Vomiting, Dyspnea, Cough, Fever, Acid Reflux or Palpitations Narrative Narrative: Patient presents with lower chest and upper abdominal pain that began today. Patient states it began rather suddenly. Patient was sitting at the kitchen table when he developed pain across his lower chest and upper abdomen. Patient describes it as sharp. Patient states it has been waxing and waning. Patient states it is worse with movement of his torso. states that he became pale, sweaty, and cold. states this has improved. Patient denies any shortness of breath. Patient denies any nausea or vomiting. CVD Risk Factors: Positive for Hypertension, Diabetes and Hypercholesterolemia; Negative for Family History 1' </=55 or Smoking PE Risk Factors: Negative for Recent Travel/Surgery, Recent Immobilization, Prior DVT or PE, Cancer or OCP + Smoking + >/=35 PFSH PFSH Medical History Single implantable cardioverter-defibrillator (ICD) in situ ICD (implantable cardioverter-defibrillator) in place Coronary artery disease Kidney stones Atrial fibrillation Wears dentures Blind Depression Thyroid disease Insulin dependent diabetes mellitus Diabetes Ambulates with cane Anemia High cholesterol Injury of head and neck Former smoker Shortness of breath on exertion History of edema History of Holter monitoring History of echocardiogram Cardiology follow-up encounter History of atrial fibrillation Infected cyst of skin Open wound of back without complication Venous insufficiency of both lower extremities Ulcer of left lower extremity with fat layer exposed Longstanding persistent atrial fibrillation Left ventricular diastolic dysfunction Chronic diastolic (congestive) heart failure Right bundle branch block (RBBB) Essential (primary) hypertension COPD (chronic obstructive pulmonary disease) Anxiety and depression Obesity (BMI 30-39.9) Hyperlipidemia Hypothyroidism DM type 2 (diabetes mellitus, type 2) Poorly controlled type 2 diabetes mellitus Sepsis Head trauma Hx of transfusion of whole blood Back problem Home Medications ?Medication ?Instructions ?Recorded ?Last Taken ?Type metformin 500 mg tablet,extended 1,000 mg PO DAILY 03/02/20 09/01/24 History release 24 hr insulin glargine 100 unit/mL 10 unit subcut 0800 10/05/21 09/01/24 History subcutaneous solution (Lantus U-100 Insulin) PEP device #1 ea 11/14/21 Unknown Rx ferrous sulfate 325 mg (65 mg 325 mg PO DAILY supplement 01/02/22 09/01/24 History iron) tablet acetaminophen 500 mg tablet 1,000 mg PO Q8H PRN pain 08/03/24 Unknown History buspirone 7.5 mg tablet 7.5 mg PO BID 08/03/24 09/01/24 History cholecalciferol (vitamin D3) 100 100 mcg PO DAILY 08/03/24 09/01/24 History mcg (4,000 unit) tablet hydroxyzine pamoate 50 mg capsule 50 mg PO BID 08/03/24 09/01/24 History insulin lispro 100 unit/mL 12 unit subcut BIDAC 08/03/24 09/01/24 History subcutaneous pen (Humalog KwikPen (U-100) Insulin) lisinopril 5 mg tablet 5 mg PO DAILY 08/03/24 09/01/24 History multivitamin 1 tab PO DAILY 08/03/24 09/01/24 History atorvastatin 40 mg tablet 40 mg PO QHS 09/01/24 08/31/24 History azithromycin 250 mg tablet 250 mg PO DAILY #4 TABLETS 09/01/24 Unknown Rx clopidogrel 75 mg tablet 75 mg PO DAILY 09/01/24 09/01/24 History levothyroxine 175 mcg tablet 175 mcg PO DAILY 09/01/24 09/01/24 History metoprolol succinate 25 mg 25 mg PO DAILY 09/01/24 09/01/24 History tablet,extended release 24 hr rivaroxaban 20 mg tablet 20 mg PO DAILY 09/01/24 09/01/24 History venlafaxine 75 mg capsule,extended 75 mg PO DAILY 09/01/24 09/01/24 History release 24 hr Allergy/AdvReac Type Severity Reaction Status Date / Time shellfish derived Allergy Hives Verified 09/01/24 08:06 Family History Mother Cancer Sister Heart disease Surgical History History of coronary artery stent placement (06/25/24) Hx of excision of dermoid cyst (~01/2022) Hx of cataract surgery History of inguinal hernia repair H/O hernia repair Social History Smoking Status: Former smoker quit date: 06/03/09 second hand exposure: No alcohol intake: never substance use type: does not use ROS ROS ED Constitutional Constitutional ED: Reports chills and sweats; Denies fever(s) Eyes Eyes: Denies blurry vision or change in vision ENT ENT ED: Reports rhinorrhea; Denies sore throat Cardiovascular Cardiovascular: Reports chest pain; Denies palpitations Respiratory/Chest Respiratory/Chest: Denies cough or dyspnea Gastrointestinal Gastrointestinal: Reports abdominal pain; Denies nausea or vomiting Genitourinary Genitourinary ED: Denies dysuria or hematuria Musculoskeletal Musculoskeletal: Denies back pain or neck pain Integumentary Denies abscess or rash Neurologic Neurologic: Denies headache(s) or weakness Allergic/Immunologic Allergic/Immunologic ED: Denies mouth swelling or urticaria EXAM Physical Exam Const Vital Signs: 09/01/24 16:42 09/01/24 17:41 09/01/24 17:42 Temperature 98.1 F 98.2 F Temperature Source Oral Pulse Rate 74 72 78 Respiratory Rate 17 15 19 H Blood Pressure 106/71 122/68 H 148/77 H Blood Pressure Mean 82 86 100 Pulse Ox 95 97 95 Oxygen Delivery Method Room Air Nasal Cannula Oxygen Flow Rate (L/min) 2 09/01/24 18:00 09/01/24 18:52 09/01/24 20:00 Temperature Temperature Source Pulse Rate 72 71 71 Respiratory Rate 18 14 20 H Blood Pressure 120/66 104/73 112/70 Blood Pressure Mean 84 83 84 Pulse Ox 98 97 96 Oxygen Delivery Method Nasal Cannula Room Air Room Air Oxygen Flow Rate (L/min) 2 Positive well nourished and well developed General Appearance ED: well developed and NAD HEENT Reports moist mucous membranes Resp normal respiratory effort Auscultation: rhonchi lower bilaterally Cardio regular rate and regular rhythm GI soft to palpation and non-distended GI Narrative: There is upper abdominal tenderness over the epigastric area. There is no rebound or guarding noted. Bowel sounds are normal. Extremity normal to inspection Neuro oriented x3, CN's II-XII intact bilaterally and no sensory deficits noted Sensorium / Orientation: awake and alert Motor Exam: strength 5/5 throughout Psych mental status grossly normal Heart Score History: Slightly/Non-Suspicious ECG: Nonspecific Repolarization Age: >/= 65 years Risk Factors: 1 or 2 Risk Factors Troponin: </= Normal Limit Score: 4 [facility] Lab Data Attestation: I reviewed the patient's lab results. Lab results narrative: CBC was reviewed. There is a mild anemia with a hemoglobin of 11.4 and hematocrit 35.0. Platelets were slightly low at 131. Basic metabolic profile was reviewed. BUN was slightly elevated at 23. Glucose was slightly elevated at 165. The remainder is within normal limits. High-sensitivity troponin was reviewed and was slightly elevated at 23. 2-hour repeat high-sensitivity troponin was reviewed and was normal at 20. Lipase was reviewed and was normal at 21. Labs: Laboratory Results - last 24 hr 09/01/24 09/01/24 16:45 18:40 WBC 6.8 RBC 3.69 L Hgb 11.4 L Hct 35.0 L MCV 94.9 H MCH 30.9 MCHC 32.6 RDW Std Deviation 49.3 H RDW Coeff of Marifer 14.2 Plt Count 131 L MPV 12.8 H Immature Gran % (Auto) 0.700 Neut % (Auto) 56.2 Lymph % (Auto) 30.1 [place] % (Auto) 10.7 H Eos % (Auto) 1.9 Baso % (Auto) 0.4 Absolute Neuts (auto) 3.8 Absolute Lymphs (auto) 2.05 Nucleated RBC % 0 Sodium 136 Potassium 4.4 Chloride 102 Carbon Dioxide 22.6 Anion Gap 12 BUN 23 H Creatinine 0.88 Estim Creat Clear Calc 95.25 Est GFR (MDRD) Non-Af 89 BUN/Creatinine Ratio 25.9 H Glucose 165 H Calcium 9.2 Troponin T High Sens 23 H Troponin T Hi Sens 2 Hr 20 Lipase 21 Radiography Chest X-Ray - ED: 2 View, Read by ED Physician, Read by Radiologist, Right Infiltrate and Left Infiltrate Diagnostic Testing: Clinical Impression(s) from Imaging Studies Chest X-Ray 09/01/24 17:50 IMPRESSION: Patchy bibasilar airspace opacities, concerning for infiltrates. Elevated left hemidiaphragm. Reading Location: [facility] and lateral chest x-ray was obtained. There are 2 views. On my independent interpretation, lung gaytan show patchy bibasilar opacities, concerning for infiltrate. There is normal cardiac silhouette. Bony thorax is normal. Radiologist also interpreted the x-ray and agrees. EKG Initial EKG: Attestation: I personally reviewed and interpreted this EKG as follows: Interpretation: Paced (71) and LBBB Comments: EKG was obtained. On my independent interpretation, it shows a ventricular paced rhythm with a rate of 71. QRS interval was prolonged at 160 ms. QTc interval was prolonged at 502 ms. There is a left bundle branch block pattern noted. There are no acute ST or T wave changes noted. Prior EKG tracings: available for review Prior: Unchanged (07/07/2024) Management Discussion w/another healthcare provider: Hospitalist Treatment and Re-Evaluation :: Patient was given aspirin here. Patient is feeling better on reevaluation. Patient was advised of his findings. Patient was given a dose of Zithromax here. Patient was ambulated in the emergency department. Patient's pulse oximeter dropped to 88% while ambulating. Because of this, I recommended admission to the hospital. Patient also has a CURB 65 score of 2. And a PORT score of 76. Patient was given a dose of Rocephin. Case was discussed with the hospitalist. Discharge Plan Triage Chief Complaint: Chest Pain ED Provider: Raffaele Calloway Dx/Rx/DC Orders Clinical Impression: Pneumonia, DM type 2 (diabetes mellitus, type 2), Chest pain Prescriptions: New azithromycin 250 mg tablet 250 mg PO DAILY Qty: 4 0RF No Action metformin 500 mg tablet extended release 24 hr 1,000 mg PO DAILY (DME) PEP device See Rx Instructions .Route .MEDSUPPLY Qty: 1 0RF Rx Instructions: with training venlafaxine 75 mg capsule,extended release 24hr 75 mg PO DAILY levothyroxine 175 mcg tablet 175 mcg PO DAILY buspirone 7.5 mg tablet 7.5 mg PO BID cholecalciferol (vitamin D3) 100 mcg (4,000 unit) tablet 100 mcg PO DAILY lisinopril 5 mg tablet 5 mg PO DAILY multivitamin Tablet 1 tab PO DAILY acetaminophen 500 mg tablet 1,000 mg PO Q8H PRN (Reason: pain) hydroxyzine pamoate 50 mg capsule 50 mg PO BID insulin glargine [Lantus U-100 Insulin] 100 unit/mL Solution 10 unit SUBCUT 0800 insulin lispro [Humalog KwikPen Insulin] 100 unit/mL insulin pen 12 unit SUBCUT BIDAC ferrous sulfate 325 mg (65 mg iron) Tablet 325 mg PO DAILY atorvastatin 40 mg tablet 40 mg PO QHS clopidogrel 75 mg tablet 75 mg PO DAILY metoprolol succinate 25 mg tablet extended release 24 hr 25 mg PO DAILY rivaroxaban 20 mg tablet 20 mg PO DAILY Rx Instructions: must administer with evening meal Primary Care Provider: Raffaele Olguin Referrals: Raffaele Olguin MD [Primary Care Provider] - 3-5 Days Print Language: Pashto
--- NOTE | 2024-09-01 17:50 | EKG12_ITS ---
Test Reason : CP Blood Pressure : */* mmHG Vent. Rate : 71 BPM Atrial Rate : 52 BPM P-R Int : * ms QRS Dur : 160 ms QT Int : 462 ms P-R-T Axes : * 261 73 degrees QTcB Int : 502 ms Ventricular-paced rhythm with occasional Premature ventricular complexes Abnormal ECG Confirmed by Sam Rader ([id number]), editor school photograph DEMETRIA PENA ([id number]) on 09/02/2024 7:51:53 AM Referred By: Confirmed By: Sam Rader
--- NOTE | 2024-09-01 17:50 | RAD_ITS ---
PROCEDURE: CHEST PA AND LATERAL 09/01/2024 REASON FOR EXAM: CHEST PAIN TECHNIQUE: Frontal and lateral views of the chest. COMPARISON: None FINDINGS: Hardware: A cardiac pacemaker is present. Heart: There is severe cardiomegaly. Mediastinum: The mediastinal contour is unremarkable. Lungs: Patchy bibasilar airspace opacities. No pneumothorax. Elevated left hemidiaphragm. Bones: Vertebroplasty of the lower thoracic vertebral body. RAD/Chest PA and Lateral IMPRESSION: Patchy bibasilar airspace opacities, concerning for infiltrates. Elevated left hemidiaphragm. [facility]
[2024-09-01 18:12] LABS: Absolute Lymphocyte Count 2.05 X10^3/uL (0.83-4.51); Absolute Neutrophil Count 3.8 X10^3/uL (2.0-7.7); Basophil# 0.03 X10^3/uL; Basophil% 0.4 % (0-1); Eosinophil# 0.13 X10^3/uL; Eosinophils% 1.9 % (0-5); Hemoglobin 11.4 g/dL (13.0-16.5); Lymphocyte # 2.05 X10^3/ul (0.83-4.51); Lymphocyte % 30.1 % (19-41); Mean Corp Hgb Conc 32.6 g/dL (32-36); Mean Corpuscular Hgb 30.9 pg (27.0-32.0); Mean Corpuscular Volume 94.9 fL (80-94); Mean Platelet Vol. 12.8 fl (6.2-12.0); Monocyte# 0.73 X10^3/uL; Monocyte% 10.7 % (0-10); NRBC Flagged by Analyzer 0 % (0-5); Neutrophil # 3.81 X10^3/uL (2.7-7.7); Neutrophil % 56.2 % (47-70); Platelet Count 131 K/mm3 (150-450); RBC Distribution Width CV 14.2 % (11.6-14.6); RBC Distribution Width SD 49.3 fl (35.1-43.9); Red Blood Count 3.69 M/mm3 (4.6-6.2); White Blood Count 6.8 K/mm3 (4.4-11.0)
[2024-09-01 19:02] LABS: Anion Gap 12 (5-15); BUN 23 mg/dL (4-19); BUN/Creat Ratio 25.9 RATIO (10-20); Calcium,Total 9.2 mg/dL (7.6-11.0); Carbon Dioxide 22.6 mmol/L (21.0-32.0); Chloride 102 mmol/L (98-108); Creatinine, Serum 0.88 mg/dL (0.70-1.20); EST Glomerular Filtration Rate 89 (>60); Estimated Creatinine Clearance 95.25 ml/min (50-250); Glucose 165 mg/dL (70-99); Lipase 21 U/L (13-75); Potassium 4.4 mmol/L (3.3-5.1); Sodium Level 136 mmol/L (133-145)
[2024-09-01 19:06] LABS: Troponin T High Sens 2 HR 20 ng/L (<=22)
[2024-09-01 19:10] LABS: Troponin T High Sensitivity 23 ng/L (<=22)
[2024-09-01] MEDS: Azithromycin 250 MG Tablet 500 MG PO (19:53)
--- NOTE | 2024-09-01 21:01 | PCM.HP.STD ---
HPI - General General Date of Admission: 09/01/24 Date of Service: 09/01/24 Chief Complaint: Chest pain HPI Narrative The patient is a 74 y/o M w/ PMHx: Chronic COPD, Former tobacco use, CKD stage II per GFR trending, HFpEF, Chronic anemia/Fe deficiency anemia, Anxiety and Depression, Diabetes mellitus type II, CAD s/p PCI, Hx cardiac pauses/VT/bradycardia w/ syncope and cardiac arrest s/p AICD, Obesity, Hypothyroidism who presents to the [facility] ED on 09/01/24 with history of onset waxing and waning chest discomfort in the substernal and epigastric region described as sharp worsened by movement and deep inspiratory effort with associated diaphoresis and lightheadedness starting on day of presentation initially when he been sitting at the kitchen table with reporting that he had at some point during the event appeared pale, diaphoretic and cold with no recent dyspnea, cough or URI type symptoms but given presentation and recent history prompted ED evaluation to be cautious. In the ED patient notes that his chest feels better but he does still have discomfort especially deep inspiratory effort. He states right now his mid abdominal region is uncomfortable and he points to the periumbilical region. He notes that he did have an issue with constipation was placed on bowel regimen but he recently stopped this when he transition back to home as he had been in a skilled facility. He notes that today he had a small bowel movement and did have some mild nausea and possibly emesis times 1 per but unclear. She notes has been tolerating a diet and has not had any issues as far as oral intake previous to this. He has been more constipated recently. Workup in the ED included T98.1, heart rate 78, BP initially 79/44, respiratory rate 18, 95% on room air with most recent repeat assessment heart rate 71, BP 112/70, respiratory rate 20, 96% on room air, CBC with WC 6.8, hemoglobin 11.4, MCV 94.9, platelet 131 without marked shift, BMP with BUN/creatinine 23/0.88, GFR 89, glucose 165, initial troponin 23, repeat delta 20, lipase 21, chest x-ray with patchy bibasilar airspace opacities concerning for infiltrates, EKG with paced rhythm with left bundle branch block with no acute evidence of ischemia unchanged from previous. In the ED patient administered IV Rocephin and azithromycin as well as full-strength aspirin therapy. Ambulatory pulse ox performed and patient unfortunately desaturated down to 88% with ambulation. Given curb score 65 of 2 and port score 76 patient plan of care to be admitted to the hospital for treatment of pneumonia. [facility] Medical History Coronary artery disease Kidney stones Atrial fibrillation Wears dentures Blind Depression Insulin dependent diabetes mellitus Ambulates with cane Anemia High cholesterol Injury of head and neck Former smoker History of Holter monitoring History of echocardiogram Cardiology follow-up encounter History of atrial fibrillation Open wound of back without complication Venous insufficiency of both lower extremities Ulcer of left lower extremity with fat layer exposed Longstanding persistent atrial fibrillation Left ventricular diastolic dysfunction Chronic diastolic (congestive) heart failure Right bundle branch block (RBBB) Essential (primary) hypertension COPD (chronic obstructive pulmonary disease) Anxiety and depression Obesity (BMI 30-39.9) Hyperlipidemia Hypothyroidism DM type 2 (diabetes mellitus, type 2) Hx of transfusion of whole blood Home Medications ?Medication ?Instructions ?Recorded ?Last Taken ?Type metformin 500 mg tablet,extended 1,000 mg PO DAILY 03/02/20 09/01/24 History release 24 hr insulin glargine 100 unit/mL 10 unit subcut 0800 10/05/21 09/01/24 History subcutaneous solution (Lantus U-100 Insulin) PEP device #1 ea 11/14/21 Unknown Rx ferrous sulfate 325 mg (65 mg 325 mg PO DAILY supplement 01/02/22 09/01/24 History iron) tablet acetaminophen 500 mg tablet 1,000 mg PO Q8H PRN pain 08/03/24 Unknown History buspirone 7.5 mg tablet 7.5 mg PO BID 08/03/24 09/01/24 History cholecalciferol (vitamin D3) 100 100 mcg PO DAILY 08/03/24 09/01/24 History mcg (4,000 unit) tablet hydroxyzine pamoate 50 mg capsule 50 mg PO BID 08/03/24 09/01/24 History insulin lispro 100 unit/mL 12 unit subcut BIDAC 08/03/24 09/01/24 History subcutaneous pen (Humalog KwikPen (U-100) Insulin) lisinopril 5 mg tablet 5 mg PO DAILY 08/03/24 09/01/24 History multivitamin 1 tab PO DAILY 08/03/24 09/01/24 History atorvastatin 40 mg tablet 40 mg PO QHS 09/01/24 08/31/24 History azithromycin 250 mg tablet 250 mg PO DAILY #4 TABLETS 09/01/24 Unknown Rx clopidogrel 75 mg tablet 75 mg PO DAILY 09/01/24 09/01/24 History levothyroxine 175 mcg tablet 175 mcg PO DAILY 09/01/24 09/01/24 History metoprolol succinate 25 mg 25 mg PO DAILY 09/01/24 09/01/24 History tablet,extended release 24 hr rivaroxaban 20 mg tablet 20 mg PO DAILY 09/01/24 09/01/24 History venlafaxine 75 mg capsule,extended 75 mg PO DAILY 09/01/24 09/01/24 History release 24 hr Allergy/AdvReac Type Severity Reaction Status Date / Time shellfish derived Allergy Hives Verified 09/01/24 08:06 Family History Mother Cancer Sister Heart disease Father , age 97, no medical history per family reported, not taking any medications. No problems noted. Surgical History ICD (implantable cardioverter-defibrillator) in place History of coronary artery stent placement (06/25/24) Hx of excision of dermoid cyst (~01/2022) Hx of cataract surgery History of inguinal hernia repair H/O hernia repair Social History household members: spouse Smoking Status: Former smoker quit date: 06/03/09 second hand exposure: No alcohol intake: never substance use type: does not use ROS ROS Narrative Admission Review of Systems: CONSTITUTIONAL: No weight loss, fever, chills, + weakness or fatigue. HEENT: + Chronic right eye vision loss. Eyes: No double vision or yellow sclerae. Ears, Nose, Throat: No hearing loss, sneezing, congestion, runny nose or sore throat. SKIN: No rash or itching, lesions, wounds. CARDIOVASCULAR: + Chest pain, pruritic chest discomfort. No palpitations, edema, orthopnea, syncopal events. RESPIRATORY: + Chronic cough. No shortness of breath, markedly productive sputum, wheezing, hemoptysis. GASTROINTESTINAL: + Currently anorexia, episode of nausea and emesis x 1, constipation, abdominal discomfort. No diarrhea, melena, BRBPR. GENITOURINARY: No dysuria, frequency, urgency or retention. NEUROLOGICAL: No headache, dizziness, syncope, paralysis, ataxia, numbness or tingling in the extremities, focal weakness, change in bowel or bladder control, seizure. MUSCULOSKELETAL: + muscle, back pain, joint pain or stiffness. HEMATOLOGIC: + Chronic anemia, easy bleeding/bruising LYMPHATICS: No enlarged nodes. No history of splenectomy. PSYCHIATRIC: + History of anxiety and depression. ENDOCRINOLOGIC: No reports of sweating, cold or heat intolerance. No polyuria or polydipsia. ALLERGIES: + History of hives. Vital Signs Vital Signs Vital Signs: 09/01/24 16:42 09/01/24 17:41 09/01/24 17:42 Temperature 98.1 F 98.2 F Temperature Source Oral Pulse Rate 74 72 78 Respiratory Rate 17 15 19 H Blood Pressure 106/71 122/68 H 148/77 H Blood Pressure Mean 82 86 100 Pulse Ox 95 97 95 Oxygen Delivery Method Room Air Nasal Cannula Oxygen Flow Rate (L/min) 2 09/01/24 18:00 09/01/24 18:52 09/01/24 20:00 Temperature Temperature Source Pulse Rate 72 71 71 Respiratory Rate 18 14 20 H Blood Pressure 120/66 104/73 112/70 Blood Pressure Mean 84 83 84 Pulse Ox 98 97 96 Oxygen Delivery Method Nasal Cannula Room Air Room Air Oxygen Flow Rate (L/min) 2 09/01/24 20:49 09/01/24 20:51 Temperature 97.6 F L 97.6 F L Temperature Source Oral Pulse Rate 71 71 Respiratory Rate 18 18 Blood Pressure 111/73 117/73 Blood Pressure Mean 85 87 Pulse Ox 97 94 Oxygen Delivery Method Room Air Oxygen Flow Rate (L/min) Weight Weight: 240 lb 4.862 oz Body Mass Index (BMI) 30.0 Physical Exam Narrative R eye legally blind Physical Examination: General: Awake, alert, oriented to self, place, recent events, irritable, follows commands however, seated upright in ED bed, complaining of no abdominal discomfort, notes no current chest discomfort but does have discomfort with deep inspiratory effort. Skin: Normal color, normal turgor, no icterus, no cyanosis except occasional stage ecchymoses, abrasion, significant bilateral lower extremity venous stasis skin changes. HEENT: AT/NC, EOM left eye intact, chronic right eye alteration/blindness, mildly dry MM, no carotid bruits or JVD noted. Lungs: Diminished, greater bases, mildly increased respiratory rate but no distress, no rales, ronchi or wheezing. Heart: Paced; no gallop, rub audible. Abdomen: Soft, mild generalized abdominal discomfort with palpation but no rebound or guarding, no marked distention, significantly diminished bowel sounds diffusely, no obvious HSM. Extremities: No cyanosis, no clubbing, chronic significant bilateral lower extremity venous stasis skin changes, no marked evidence of chronic pitting edema present. Neurological: Patient awake, alert, oriented as no, cognitive function intact; pupils equally reactive to light and accommodation, cranial nerves grossly normal aside from chronic right eye vision loss, moving all 4 extremities, no focal deficits, strength severely globally decreased. Psychiatric: Affect appears uncomfortable, no acute evidence of depressive or anxiety feelings but does have underlying history. Results Lab / Micro Data 09/01/24 16:45 09/01/24 16:45 Labs: Laboratory Results - last 24 hr 09/01/24 16:45: WBC 6.8, RBC 3.69 L, Hgb 11.4 L, Hct 35.0 L, MCV 94.9 H, MCH 30.9, MCHC 32.6, RDW Std Deviation 49.3 H, RDW Coeff of Marifer 14.2, Plt Count 131 L, MPV 12.8 H, Immature Gran % (Auto) 0.700, Neut % (Auto) 56.2, Lymph % (Auto) 30.1, [place] % (Auto) 10.7 H, Eos % (Auto) 1.9, Baso % (Auto) 0.4, Absolute Neuts (auto) 3.8, Absolute Lymphs (auto) 2.05, Nucleated RBC % 0, Sodium 136, Potassium 4.4, Chloride 102, Carbon Dioxide 22.6, Anion Gap 12, BUN 23 H, Creatinine 0.88, Estim Creat Clear Calc 95.25, Est GFR (MDRD) Non-Af 89, BUN/Creatinine Ratio 25.9 H, Glucose 165 H, Calcium 9.2, Troponin T High Sens 23 H, Lipase 21 09/01/24 18:40: Troponin T Hi Sens 2 Hr 20 Imaging Radiology Impression Chest X-Ray 09/01/24 17:50 IMPRESSION: Patchy bibasilar airspace opacities, concerning for infiltrates. Elevated left hemidiaphragm. [facility] Assessment & Plan Assessment/Plan (1) Chest pain: (2) Pneumonia: PLAN: Plan The patient is a 74 y/o M w/ PMHx: Chronic COPD, Former tobacco use, CKD stage II per GFR trending, HFpEF, Chronic anemia/Fe deficiency anemia, Anxiety and Depression, Diabetes mellitus type II, CAD s/p PCI, Hx cardiac pauses/VT/bradycardia w/ syncope and cardiac arrest s/p AICD, Obesity, Hypothyroidism who presents to the [facility] ED on 09/01/24 with history of onset waxing and waning chest discomfort in the substernal and epigastric region described as sharp worsened by movement and deep inspiratory effort with associated diaphoresis and lightheadedness starting on day of presentation initially when he been sitting at the kitchen table with reporting that he had at some point during the event appeared pale, diaphoretic and cold with no recent dyspnea, cough or URI type symptoms but given presentation and recent history prompted ED evaluation to be cautious. #1. Acute hypoxia secondary to bilateral community-acquired pneumonia with associated clear chest discomfort in addition to vague abdominal discomfort w/ episode N/V, constipation: Will admit to PCU to be cautious, will continue to cycle cardiac enzymes given recent history, maintain on oxygen with wean as tolerated to room air, continue ATC duonebs, PRN albuterol, maintain on IV Rocephin and Azithromycin, HOB, IS parameters w/ pending sputum cultures, full respiratory viral panel, procalcitonin and urine antigens. KUB requested given recent constipation after stopping his bowel regimen with episode N/V x 1 at home per report. PT/OT/case management consulted for discharge planning. #2. Thrombocytopenia, acute on chronic, possibly reactive secondary to #1: Admission platelets 131, in the past has occasionally been remotely lower however has been more normal range over the last couple years, will continue to trend CBC. #3. Chronic COPD: Per current list does not appear to be on any chronic inhalers, will maintain on ATC DuoNeb therapy cautiously given PAF history, PRN albuterol, HOB, IS parameters. #4. HFpEF: Most recent echocardiogram noted 06/27/2024 with limited study, LVEF 70% with no regional wall motion abnormalities. Cautiously hydrate if necessary given history, continue Xarelto, Plavix, statin, metoprolol, lisinopril home regimen, not on chronic diuretic therapy per current list. #5. PAF: We will continue patient home Xarelto regimen in addition to metoprolol. #6. Cardiac pauses, bradycardia, VT with associated cardiac arrest: Status post AICD placement, device assessment requested to be cautious, admitted 06/2024 initially for syncopal event eventually taken to the cardiac Market Director with stenting of the RCA in addition to the ICD given cardiac pauses and arrhythmia. Will continue metoprolol regimen. Per most recent cardiology note/06/27 EP follow-up is arranged for next month at [place]. #7. CAD: Status post PCI 06/25/2024, will continue Xarelto, Plavix, statin, metoprolol, lisinopril home regimen. Encourage continued outpatient follow-up with cardiology as previously arranged. #8. Chronic Kidney Disease Stage II per GFR trending although occasionally has vacillated to stage I: Admission BUN/Cr 23/0.88, GFR 89, baseline renal function primarily 0.8-1.0, repeat BMP in AM. #9. Anxiety and depression: We will continue patient home venlafaxine, BuSpar and hydroxyzine home regimen. #10. Diabetes mellitus type II: Hold oral home regimen, continue home insulin regimen, clear liquids until assure oral intake tolerated although awaiting KUB as noted and if appropriate may transition to NPO status if needed, accu checks w/ ISS. #11. Hypertension: Continue home regimen including lisinopril, metoprolol, PRN hydralazine. #12. Hyperlipidemia: Continue home statin regimen. #13. Chronic macrocytic anemia/iron deficiency anemia: Admission hemoglobin 11.4, MCV 94.9, baseline hemoglobin primarily 10-11 range, stable, continue to trend, continue iron supplementation. #14. Hypothyroidism: We will continue patient on levothyroxine regimen. #15. Obesity: Weight loss and lifestyle changes encouraged. #16. Former tobacco use: Encourage continued tobacco cessation. #17. DVT prophylaxis: Will continue patient Xarelto regimen cautiously, monitor CBC. #18. CODE status: Patient HCPOA and living will not in place but was present notes she would be the medical decision-maker if necessary. Discussed CODE status at length including difference between FULL code, DNR-CCA and DNR-CC status. Following discussions about the differences in these status, requested eventually Full Code status although he vacillated initially in his decision. Recommended that he think about it over the next 24 hours and he prefers to change his status to notify staff. Advanced Care Planning Face to Face Time: 16 minutes. Charges/Coding Visit Charges Inpatient E&M: 18123 Init Hosp L3 Procedures Hospitalists Procedures: 81337 Advncd Care Plan 30 Min
[2024-09-01] MEDS: Ceftriaxone 2 GM in 0.9% Normal Saline (50mL MB+) 50 ML IV (21:10)
--- NOTE | 2024-09-01 21:33 | RAD_ITS ---
PROCEDURE: ABDOMEN SINGLE VIEW (PORTABLE) 09/01/2024 REASON FOR EXAM: ABDOMINAL PAIN TECHNIQUE: Single view abdomen. COMPARISON: None FINDINGS: Bowel gas: Bowel gas pattern is normal. No evidence of bowel obstruction. Calcifications: Small gallstones are demonstrated. Bones: Vertebroplasty of the thoracic and lumbar vertebral bodies. Other: RAD/Abdomen Single View (Portable) IMPRESSION: Nonobstructive bowel gas pattern. Cholelithiasis. Reading Location: [facility]
[2024-09-01] MEDS: 0.9% Normal Saline (1000mL) 1,000 ML 100 ML IV (23:10)
[2024-09-01] MEDS: busPIRone 5 MG Tablet 7.5 MG PO (23:10)
[2024-09-01] MEDS: Atorvastatin Calcium 40 MG Tablet PO (23:11)
[2024-09-01] MEDS: hydrOXYzine PAM 25 MG Capsule 50 MG PO (23:11)
[2024-09-01] MEDS: Insulin Lispro 100 UNIT/ML INSULN.PEN SC (23:18)
[2024-09-02] VITALS (12 sets, daily range): BP systolic 90–137; BP diastolic 51–79; PULSE 67–85; RESP 14–18; TEMP 36.1–36.8; O2SAT 92–100; BMI 29.7
[2024-09-02 00:05] LABS: Troponin T High Sens 4 HR 21 ng/L (<=22)
[2024-09-02 00:15] LABS: Magnesium 1.9 mg/dL (1.5-2.2)
[2024-09-02 00:37] LABS: Procalcitonin < 0.02 ng/mL (<=0.10)
--- NOTE | 2024-09-02 00:41 | EKG12_ITS ---
Test Reason : CP ADMIT Blood Pressure : */* mmHG Vent. Rate : 90 BPM Atrial Rate : 89 BPM P-R Int : * ms QRS Dur : 156 ms QT Int : 462 ms P-R-T Axes : * 267 71 degrees QTcB Int : 565 ms Ventricular-paced rhythm with Premature supraventricular complexes Abnormal ECG When compared with ECG of 01-Sep-2024 16:49, MANUAL COMPARISON REQUIRED DATA IS UNCONFIRMED Confirmed by Sam Rader [id number]), publication editor DEMETRIA PENA ([id number]) on 09/02/2024 7:57:23 AM Referred By: DR CALABRESE Confirmed By: Sam Rader
[2024-09-02 01:39] LABS: Bedside Glucose 201 mg/dL (74-106)
[2024-09-02] MEDS: Levothyroxine 175 MCG Tablet PO (05:43)
[2024-09-02] MEDS: Ipratropium/Albuterol Sulfate 3 ML AMPUL.NEB INHALATION ×3 (06:57→19:17)
[2024-09-02 07:06] LABS: Absolute Lymphocyte Count 1.26 X10^3/uL (0.83-4.51); Absolute Neutrophil Count 2.8 X10^3/uL (2.0-7.7); Basophil# 0.02 X10^3/uL; Basophil% 0.4 % (0-1); Eosinophil# 0.07 X10^3/uL; Eosinophils% 1.5 % (0-5); Hematocrit 33.8 % (40-54); Hemoglobin 11.2 g/dL (13.0-16.5); Lymphocyte # 1.26 X10^3/ul (0.83-4.51); Lymphocyte % 26.8 % (19-41); Mean Corp Hgb Conc 33.1 g/dL (32-36); Mean Corpuscular Hgb 31.3 pg (27.0-32.0); Mean Corpuscular Volume 94.4 fL (80-94); Mean Platelet Vol. 13.3 fl (6.2-12.0); Monocyte# 0.51 X10^3/uL; Monocyte% 10.8 % (0-10); NRBC Flagged by Analyzer 0 % (0-5); Neutrophil # 2.83 X10^3/uL (2.7-7.7); Neutrophil % 60.1 % (47-70); Platelet Count 159 K/mm3 (150-450); RBC Distribution Width SD 48.8 fl (35.1-43.9); Red Blood Count 3.58 M/mm3 (4.6-6.2); White Blood Count 4.7 K/mm3 (4.4-11.0)
[2024-09-02 07:29] LABS: ALB/GLOB Ratio 0.9 RATIO (0.9-2.4); AST(SGOT) 21 U/L (<=37); Alanine Aminotransfer ALT/SGPT 13 U/L (<=46); Albumin, Serum 3.4 g/dL (3.4-4.8); Alkaline Phosphatase 117 U/L (40-129); Anion Gap 11 (5-15); BUN 19 mg/dL (4-19); BUN/Creat Ratio 26.4 RATIO (10-20); Calcium,Total 8.6 mg/dL (7.6-11.0); Carbon Dioxide 20.1 mmol/L (21.0-32.0); Chloride 103 mmol/L (98-108); Creatinine, Serum 0.73 mg/dL (0.70-1.20); EST Glomerular Filtration Rate 94 (>60); Estimated Creatinine Clearance 104.33 ml/min (50-250); Globulin 3.9 g/dL (2.2-4.2); Glucose 154 mg/dL (70-99); Protein, Total 7.3 g/dL (5.9-8.4); Sodium Level 134 mmol/L (133-145); Total Bilirubin 0.55 mg/dL (0.00-1.30)
[2024-09-02] MEDS: Insulin Lispro 100 UNIT/ML INSULN.PEN 12 UNIT SC ×2 (09:13→17:38)
[2024-09-02] MEDS: Insulin Glargine-YFGN 100 UNIT/ML Pen 10 UNIT SC (09:16)
[2024-09-02] MEDS: Insulin Lispro 100 UNIT/ML INSULN.PEN SC ×2 (09:16→17:38)
[2024-09-02] MEDS: busPIRone 5 MG Tablet 7.5 MG PO ×2 (09:18→22:47)
[2024-09-02] MEDS: Metoprolol(XL)Succ 25 MG Tablet PO (09:19)
[2024-09-02] MEDS: Clopidogrel Bisulfate 75 MG Tablet PO (09:19)
[2024-09-02] MEDS: Venlafaxine XR 75 MG Capsule PO (09:19)
[2024-09-02] MEDS: Lisinopril 5 MG Tablet PO (09:20)
[2024-09-02] MEDS: hydrOXYzine PAM 25 MG Capsule 50 MG PO ×2 (09:21→22:46)
[2024-09-02] MEDS: Ceftriaxone 1 GM/50 ML BAG IV (09:24)
--- NOTE | 2024-09-02 09:28 | PCM.PN.HOSP ---
Reason for Visit Reason for Visit: Diagnoses Pneumonia, unspecified organism (09/01/24) Chest pain, unspecified (09/01/24) Subjective Subjective Patient is a 74-year-old gentleman who presented with bilateral flank pain, chills and some cough. Chest x-ray obtained did show patchy bibasilar airspace opacities. Patient however denied any fever. Admitted to monitored bed as a case of suspected pneumonia Objective Data Objective Data Vital Signs: Vital Signs Temp Pulse Resp BP Pulse Ox O2 Del Method O2 Flow Rate 98.3 F 72 14 137/70 H 92 Room Air 2 09/02/24 07:37 09/02/24 07:37 09/02/24 07:37 09/02/24 07:37 09/02/24 07:37 09/02/24 07:39 09/01/24 18:00 Oxygen Flow Rate (L/min) 2 Oxygen Delivery Method Room Air Weight: 108 kg Body Mass Index (BMI) 29.7 Intake & Output: Intake and Output for Last 24 Hours 08/31/24 09/01/24 09/02/24 23:59 23:59 23:59 Intake Total 250 / 300 50 / 50 Output Total 450 / 450 Balance 250 / 300 -400 / -400 Lab / Micro Data 09/02/24 06:02 09/02/24 06:02 Labs: Laboratory Results - last 24 hr 09/01/24 16:45: WBC 6.8, RBC 3.69 L, Hgb 11.4 L, Hct 35.0 L, MCV 94.9 H, MCH 30.9, MCHC 32.6, RDW Std Deviation 49.3 H, RDW Coeff of Marifer 14.2, Plt Count 131 L, MPV 12.8 H, Immature Gran % (Auto) 0.700, Neut % (Auto) 56.2, Lymph % (Auto) 30.1, [place] % (Auto) 10.7 H, Eos % (Auto) 1.9, Baso % (Auto) 0.4, Absolute Neuts (auto) 3.8, Absolute Lymphs (auto) 2.05, Nucleated RBC % 0, Sodium 136, Potassium 4.4, Chloride 102, Carbon Dioxide 22.6, Anion Gap 12, BUN 23 H, Creatinine 0.88, Estim Creat Clear Calc 95.25, Est GFR (MDRD) Non-Af 89, BUN/Creatinine Ratio 25.9 H, Glucose 165 H, Calcium 9.2, Troponin T High Sens 23 H, Lipase 21 09/01/24 18:40: Troponin T Hi Sens 2 Hr 20 09/01/24 22:59: Magnesium 1.9, Troponin T Hi Sens 4Hr 21, Procalcitonin < 0.02 09/01/24 23:13: POC Glucose 201 H 09/02/24 06:02: WBC 4.7, RBC 3.58 L, Hgb 11.2 L, Hct 33.8 L, MCV 94.4 H, MCH 31.3, MCHC 33.1, RDW Std Deviation 48.8 H, RDW Coeff of Marifer 14.0, Plt Count 159, MPV 13.3 H, Immature Gran % (Auto) 0.400, Neut % (Auto) 60.1, Lymph % (Auto) 26.8, [place] % (Auto) 10.8 H, Eos % (Auto) 1.5, Baso % (Auto) 0.4, Absolute Neuts (auto) 2.8, Absolute Lymphs (auto) 1.26, Nucleated RBC % 0, Sodium 134, Potassium 4.0, Chloride 103, Carbon Dioxide 20.1 L, Anion Gap 11, BUN 19, Creatinine 0.73, Estim Creat Clear Calc 104.33, Est GFR (MDRD) Non-Af 94, BUN/Creatinine Ratio 26.4 H, Glucose 154 H, Calcium 8.6, Total Bilirubin 0.55, AST 21, ALT 13, Alkaline Phosphatase 117, Total Protein 7.3, Albumin 3.4, Globulin 3.9, Albumin/Globulin Ratio 0.9 Radiography Diagnostic Testing: Radiology Impression Chest X-Ray 09/01/24 17:50 IMPRESSION: Patchy bibasilar airspace opacities, concerning for infiltrates. Elevated left hemidiaphragm. Reading Location: [facility] KUB X-Ray 09/01/24 21:33 IMPRESSION: Nonobstructive bowel gas pattern. Cholelithiasis. Reading Location: [facility] Physical Exam Narrative GENERAL: cooperative HEENT: Atraumatic; normocephalic EYES; Anicteric, Normal Conjunctiva NECK; supple, normal thyroid, RESPIRATORY: Diminished to auscultation CARDIOVASCULAR: Regular S1 S2, GI: soft, normoactive bowel sounds, : No Renal angle tenderness; EXTREMITIES: No edema, no clubbing, MUSCULOSKELETAL: no muscle wasting NEURO: Awake; no lateralizing signs. SKIN: No Rash PSYCH; Flat affect Assessment & Plan Assessment/Plan (1) Chest pain: (2) Pneumonia: PLAN: Plan Patient is a 74-year-old gentleman who presented with bilateral flank pain, chills and some cough. Chest x-ray obtained did show patchy bibasilar airspace opacities. Patient however denied any fever. Admitted to monitored bed as a case of suspected pneumonia 1. Suspected pneumonia ? Patient presented with bilateral flank pain was found to have patchy bibasilar airspace opacities. Patient however did not have any WBC count subsequently ordered proBNP and CT of the chest for subsequent eval 2. Acute hypoxia Secondary to above patient was briefly placed on supplemental oxygen which has since been weaned off 3. COPD ? Not in exacerbation aerosol treatment as needed 4. Chronic congestive heart failure with preserved ejection fraction ?Ordered proBNP to rule out acute exacerbation echo from 06/27/2024 demonstrated LVEF of 70% with no regional wall motion abnormalities 5. Paroxysmal atrial fibrillation ? Rate controlled on systemic anticoagulation with apixaban 6. History of ventricular tachycardia associated with cardiac arrest ? Status post AICD placement 7. Dyslipidemia ?Patient is on statin therapy, continued at home dose 8. Diabetes mellitus type II -patient's oral hypoglycemics held. Placed on long acting insulin, Accu-Cheks a.c. and at bedtime and covered with sliding scale insulin 9. Thrombocytopenia ? Resolved 10. Coronary artery disease ? With recent PCI on 06/25/2024; patient is on guideline directed medical therapy did continue 11. CKD ruled out 12. Anemia ? Secondary to chronic disorder monitoring H&H and transfuse if patient becomes symptomatic or hemoglobin falls below 7 13. Anxiety and depression: 0n venlafaxine, BuSpar and hydroxyzine home regimen. 14. Hypertension ? Blood pressure controlled, home medications continued with dose adjustment as needed 15. Dyslipidemia ?Patient is on statin therapy, continued at home dose 16. Hypothyroidism ? Patient is on levothyroxine home dose continued 17. DVT prophylaxis ? Patient already on apixaban Time spent in the patient's overall evaluation,decision-making process, review of diagnostic data, adjustment of management, discussion with other providers, nursing nursing and ancillary staff involved in patient's care documentation, 52 Minutes Charges/Coding Visit Charges Inpatient E&M: 94229 Subs Hosp L3
[2024-09-02 10:02] LABS: Pro- Brain NATRIURETIC PEPTIDE 1097 pg/mL (<=1800)
--- NOTE | 2024-09-02 10:03 | CT_ITS ---
EXAM: CT Chest Without Intravenous Contrast CLINICAL INDICATION: PNEUMONIA TECHNIQUE: Axial computed tomography images of the chest without intravenous contrast. This CT exam was performed using one or more of the following dose reduction techniques: automated exposure control, adjustment of the mA and/or kV according to patient size, and/or use of iterative reconstruction technique. COMPARISON: CT Chest dated 08/04/2024 FINDINGS: LUNGS AND PLEURAL SPACES: Decreasing bilateral pleural effusions with persistent scattered partial consolidation of both lungs could be multifocal pneumonia. COPD/Lung emphysema. HEART: Unremarkable. No cardiomegaly. No significant pericardial effusion. No significant coronary artery calcifications. MEDIASTINUM: Scattered mediastinal lymph nodes some of which are upper limits of normal in size and are most likely reactive lymph nodes. BONES/JOINTS: Stable osseous structures. No acute fracture. No dislocation. SOFT TISSUES: Unremarkable. VASCULATURE: Unremarkable. No thoracic aortic aneurysm. LYMPH NODES: See above. CT/Chest without Contrast IMPRESSION: 1. Decreasing bilateral pleural effusions with persistent scattered partial co nsolidation of both lungs could be multifocal pneumonia. 2. Scattered mediastinal lymph nodes some of which are upper limits of normal in size and are most likely reactive lymph nodes. 3. COPD/Lung emphysema. Reading Location: [facility]
[2024-09-02 10:07] LABS: Bedside Glucose 162 mg/dL (74-106)
[2024-09-02 12:14] LABS: Bedside Glucose 77 mg/dL (74-106)
[2024-09-02] MEDS: Ferrous Sulfate 325 MG Tablet PO (12:31)
[2024-09-02] MEDS: Azithromycin 500 MG in 0.9% Normal Saline (250mL Bag) 250 ML 255 MG IV (12:32)
--- NOTE | 2024-09-02 13:44 | CASEMGMT ---
MG ANDERSON Assessment: Face to Face with pt for initial transition planning/care coordination assessment. MG ANDERSON introduced self and role at [facility], pt voices understanding and consents to assessment. Pt is A&O x4 and answers all questions appropriately at this time. Pt lying in bed in no distress, daughter sitting at bedside. Pt agreeable to answering questions with daughter present. Care providers, pharmacy, and demographics verified/updated. Strata: 3 Admitting Dx: Chest Pain, Hypoxia, PNA PCP: Sharif Specialists: ISAK Preferred Pharmacy: [facility] Insurance: [employer] Prescription Benefit: yes LNOK: , Callie Living Arrangements: Pt lives With , grandson his and their children. ADLs: Pt needs assistance, family provides assistance with cooking, cleaning, bathing, dressing, checking BS. Transportation: Pt family provides transportation. DME: glucometer and supplies, grab bars, shower bench, walker, cane, transport chair. HHC/SNF: Previously at [facility] Pt states no concerns with going home at time of dc. Pt has [facility] for PT and OT. Pt would like to resume care at time of DC. MG ANDERSON notified MG ANDERSON on floor. Pt states no further concerns/needs. CM to follow. Advised pt to ask CM if any further question/concerns/needs arise, voices understanding. Pt Goal: Home Plan: Home with [facility]. Follow therapy. Mike HOLLIDAY CM
--- NOTE | 2024-09-02 14:04 | CASEMGMT ---
Addendum entered by Monika Woods 09/02/24 15:17: JUAN R order sent to [facility]. Monika Woods DC Planning Asst. Original Note: Discharge Planning JUAN R referral sent to [facility] with note asking which disciplines are being rec'd. Monika Woods DC Planning Asst.
[2024-09-02] MEDS: Acetaminophen 325 MG Tablet 650 MG PO (15:13)
[2024-09-02] MEDS: Mag Hydrox/Al Hydrox/Simeth 30 ML UDC PO (15:16)
[2024-09-02 16:24] LABS: Bedside Glucose 188 mg/dL (74-106)
[2024-09-02] MEDS: Rivaroxaban 20 MG Tablet PO (17:37)
[2024-09-02] MEDS: Atorvastatin Calcium 40 MG Tablet PO (22:46)
[2024-09-02] MEDS: Glucerna Shake 120 ML LIQUID PO (22:47)
[2024-09-02 23:14] LABS: Bedside Glucose 112 mg/dL (74-106)
[2024-09-03] VITALS (7 sets, daily range): BP systolic 105–139; BP diastolic 73–74; PULSE 69–88; RESP 15–18; TEMP 36.6–36.8; O2SAT 80–95; BMI 29.0
[2024-09-03] MEDS: Levothyroxine 175 MCG Tablet PO (05:23)
[2024-09-03 05:43] LABS: Absolute Lymphocyte Count 1.57 X10^3/uL (0.83-4.51); Absolute Neutrophil Count 2.8 X10^3/uL (2.0-7.7); Basophil# 0.03 X10^3/uL; Basophil% 0.6 % (0-1); Eosinophil# 0.11 X10^3/uL; Eosinophils% 2.1 % (0-5); Hematocrit 31.8 % (40-54); Hemoglobin 10.6 g/dL (13.0-16.5); Lymphocyte # 1.57 X10^3/ul (0.83-4.51); Lymphocyte % 30.3 % (19-41); Mean Corp Hgb Conc 33.3 g/dL (32-36); Mean Corpuscular Hgb 31.2 pg (27.0-32.0); Mean Corpuscular Volume 93.5 fL (80-94); Monocyte# 0.63 X10^3/uL; Monocyte% 12.2 % (0-10); NRBC Flagged by Analyzer 0 % (0-5); Neutrophil # 2.81 X10^3/uL (2.7-7.7); Neutrophil % 54.2 % (47-70); POSITIVE COUNT YES; White Blood Count 5.2 K/mm3 (4.4-11.0)
[2024-09-03 06:05] LABS: Anion Gap 10 (5-15); BUN 21 mg/dL (4-19); BUN/Creat Ratio 25.6 RATIO (10-20); Calcium,Total 8.7 mg/dL (7.6-11.0); Carbon Dioxide 21.9 mmol/L (21.0-32.0); Chloride 104 mmol/L (98-108); EST Glomerular Filtration Rate 92 (>60); Estimated Creatinine Clearance 103.22 ml/min (50-250); Glucose 148 mg/dL (70-99); Magnesium 1.9 mg/dL (1.5-2.2); Phosphorus 3.2 mg/dL (2.7-4.5); Potassium 4.1 mmol/L (3.3-5.1); Sodium Level 136 mmol/L (133-145)
[2024-09-03 07:09] LABS: Platelet Estimate ADEQUATE (ADEQ)
[2024-09-03] MEDS: Ipratropium/Albuterol Sulfate 3 ML AMPUL.NEB INHALATION (07:58)
[2024-09-03 08:53] LABS: Bedside Glucose 151 mg/dL (74-106)
[2024-09-03] MEDS: busPIRone 5 MG Tablet 7.5 MG PO (09:12)
[2024-09-03] MEDS: Glucerna Shake 120 ML LIQUID PO (09:13)
[2024-09-03] MEDS: Venlafaxine XR 75 MG Capsule PO (09:13)
[2024-09-03] MEDS: Clopidogrel Bisulfate 75 MG Tablet PO (09:13)
[2024-09-03] MEDS: hydrOXYzine PAM 25 MG Capsule 50 MG PO (09:14)
[2024-09-03] MEDS: Metoprolol(XL)Succ 25 MG Tablet PO (09:14)
[2024-09-03] MEDS: Insulin Lispro 100 UNIT/ML INSULN.PEN 12 UNIT SC (09:16)
[2024-09-03] MEDS: Insulin Glargine-YFGN 100 UNIT/ML Pen 10 UNIT SC (09:16)
[2024-09-03] MEDS: Insulin Lispro 100 UNIT/ML INSULN.PEN SC (09:16)
[2024-09-03] MEDS: Azithromycin 500 MG in 0.9% Normal Saline (250mL Bag) 250 ML 255 MG IV (09:22)
--- NOTE | 2024-09-03 10:48 | DS.PCM_ITS ---
Providers Date of Admission: 09/01/24 Date of Discharge: 09/03/24 Primary Care Physician: Dr. Raffaele Olguin MD Reason For Visit: CHEST PAIN, HYPOXIA, PNA Diagnosis Discharge Diagnosis (1) Chest pain: Status: Acute Code(s): R07.9 - Chest pain, unspecified (2) Pneumonia: Status: Acute Code(s): J18.9 - Pneumonia, unspecified organism Plan Patient is a 74-year-old gentleman who presented with bilateral flank pain, chills and some cough. Chest x-ray obtained did show patchy bibasilar airspace opacities. Patient however denied any fever. Admitted to monitored bed as a case of suspected pneumonia 1. Suspected pneumonia ? Patient presented with bilateral flank pain was found to have patchy bibasilar airspace opacities. Patient however did not have any WBC count subsequently ordered proBNP and CT of the chest for subsequent eval 2. Acute hypoxia Secondary to above patient was briefly placed on supplemental oxygen which has since been weaned off 3. COPD ? Not in exacerbation aerosol treatment as needed 4. Acute on chronic chronic congestive heart failure with preserved ejection fraction ?Ordered proBNP to rule out acute exacerbation echo from 06/27/2024 demonstrated LVEF of 70% with no regional wall motion abnormalities ? CT obtained did show some bilateral pleural effusion patient responded to diuretic therapy. Lasix prescription written on discharge 5. Paroxysmal atrial fibrillation ? Rate controlled on systemic anticoagulation with apixaban 6. History of ventricular tachycardia associated with cardiac arrest ? Status post AICD placement 7. Dyslipidemia ?Patient is on statin therapy, continued at home dose 8. Diabetes mellitus type II -patient's oral hypoglycemics held. Placed on long acting insulin, Accu-Cheks a.c. and at bedtime and covered with sliding scale insulin 9. Thrombocytopenia ? Resolved 10. Coronary artery disease ? With recent PCI on 06/25/2024; patient is on guideline directed medical therapy did continue 11. CKD ruled out 12. Anemia ? Secondary to chronic disorder monitoring H&H and transfuse if patient becomes symptomatic or hemoglobin falls below 7 13. Anxiety and depression: 0n venlafaxine, BuSpar and hydroxyzine home regimen. 14. Hypertension ? Blood pressure controlled, home medications continued with dose adjustment as needed 15. Dyslipidemia ?Patient is on statin therapy, continued at home dose 16. Hypothyroidism ? Patient is on levothyroxine home dose continued 17. DVT prophylaxis ? Patient already on apixaban Time spent in the patient's overall evaluation,decision-making process, review of diagnostic data, adjustment of management, discussion with other providers, nursing nursing and ancillary staff involved in patient's care documentation, 36 minutes Medications at Discharge Home Medications metformin 500 mg tablet,extended release 24 hr 1,000 mg PO DAILY 03/02/20 insulin glargine 100 unit/mL subcutaneous solution (Lantus U-100 Insulin) 10 unit subcut 0800 10/05/21 PEP device #1 ea 11/14/21 ferrous sulfate 325 mg (65 mg iron) tablet 325 mg PO DAILY supplement 01/02/22 acetaminophen 500 mg tablet 1,000 mg PO Q8H PRN pain 08/03/24 buspirone 7.5 mg tablet 7.5 mg PO BID 08/03/24 cholecalciferol (vitamin D3) 100 mcg (4,000 unit) tablet 100 mcg PO DAILY 08/03/24 hydroxyzine pamoate 50 mg capsule 50 mg PO BID 08/03/24 insulin lispro 100 unit/mL subcutaneous pen (Humalog KwikPen (U-100) Insulin) 12 unit subcut BIDAC 08/03/24 lisinopril 5 mg tablet 5 mg PO DAILY 08/03/24 multivitamin 1 tab PO DAILY 08/03/24 atorvastatin 40 mg tablet 40 mg PO QHS 09/01/24 clopidogrel 75 mg tablet 75 mg PO DAILY 09/01/24 levothyroxine 175 mcg tablet 175 mcg PO DAILY 09/01/24 metoprolol succinate 25 mg tablet,extended release 24 hr 25 mg PO DAILY 09/01/24 rivaroxaban 20 mg tablet 20 mg PO DAILY 09/01/24 venlafaxine 75 mg capsule,extended release 24 hr 75 mg PO DAILY 09/01/24 azithromycin 500 mg tablet 500 mg PO DAILY 3 days #3 tabs 09/03/24 cefdinir 300 mg capsule 300 mg PO BID 7 days #14 caps 09/03/24 furosemide 40 mg tablet (Lasix) 40 mg PO DAILY #60 tabs 09/03/24 guaifenesin 600 mg tablet, extended release 12 hr (Mucinex) 1,200 mg (2 x 600 mg) PO BID 10 days #40 tabs 09/03/24 Physical Exam Narrative GENERAL: cooperative HEENT: Atraumatic; normocephalic EYES; Anicteric, Normal Conjunctiva NECK; supple, normal thyroid, RESPIRATORY: Diminished to auscultation CARDIOVASCULAR: Regular S1 S2, GI: soft, normoactive bowel sounds, : No Renal angle tenderness; EXTREMITIES: No edema, no clubbing, MUSCULOSKELETAL: no muscle wasting NEURO: Awake; no lateralizing signs. SKIN: No Rash PSYCH; Flat affect Weight / BMI Weight Weight: 105.5 kg Body Mass Index (BMI) 29.0 ABG / Lab / Microbiology Data 09/03/24 05:17 09/03/24 05:17 Laboratory: Laboratory Results - last 24 hr 09/02/24 11:55: POC Glucose 77 09/02/24 16:06: POC Glucose 188 H 09/02/24 22:31: POC Glucose 112 H 09/03/24 05:17: WBC 5.2, RBC 3.40 L, Hgb 10.6 L, Hct 31.8 L, MCV 93.5, MCH 31.2, MCHC 33.3, RDW Std Deviation 48.0 H, RDW Coeff of Marifer 14.0, Plt Count TNP, MPV TNP, Immature Gran % (Auto) 0.600, Neut % (Auto) 54.2, Lymph % (Auto) 30.3, [place] % (Auto) 12.2 H, Eos % (Auto) 2.1, Baso % (Auto) 0.6, Absolute Neuts (auto) 2.8, Absolute Lymphs (auto) 1.57, Nucleated RBC % 0, Platelet Estimate ADEQUATE, Sodium 136, Potassium 4.1, Chloride 104, Carbon Dioxide 21.9, Anion Gap 10, BUN 21 H, Creatinine 0.80, Estim Creat Clear Calc 103.22, Est GFR (MDRD) Non-Af 92, BUN/Creatinine Ratio 25.6 H, Glucose 148 H, Calcium 8.7, Phosphorus 3.2, Magnesium 1.9 09/03/24 08:36: POC Glucose 151 H Microbiology: Microbiology 09/01/24 23:00 Mucosa - Nasopharyngeal Respiratory Panel (PCR) - Final 09/02/24 22:23 Urine, Clean Catch Legionella Antigen - Final 09/02/24 22:23 Urine, Clean Catch Streptococcus pneumoniae Antigen (M - Final D/C Instructions Discharge Diet: No restrictions Discharge Activity: Return to Normal Activity Call your doctor if you observe: Fever of 101 or Higher, Shortness of breath, Fainting spells and Chest pain DC O2, CPAP, BIPAP Needs Home O2 Discharge instructions: No Meaningful Use Info Meaningful Use Meaningful Use Diagnoses (Choose all that apply): CHF CHF CHRISTIAN/ARB ordered at discharge?: Yes Documented LVEF (%): 70 Ischemic Stroke Statin Dosing Therapy Reference: STATIN DOSE THERAPY REFERENCE: * Patients > 75 years receive moderate or high dose statin therapy. * Patients 75 years or YOUNGER should receive HIGH intensity statin dose unless contraindicated. You will be required to document reason for non-treatment if statin daily dose does not meet guidelines. HIGH DOSE STATIN THERAPY DAILY Atorvastatin > than or = to 40 mg Rosuvastatin > than or = to 20 mg Amlodipine + Atorvastatin > than or = to 2.5/40 mg Ezetimibe + Simvastatin 10/80 mg Simvastatin 80mg Discharge Plan Admission Admit Date/Time: 09/01/24 21:02 Attending Provider: Wood Braxton Primary Care Provider: Raffaele Olguin Consulting Providers: Shonda Gaston Discharge Orders/Prescriptions Prescriptions: New cefdinir 300 mg capsule 300 mg PO BID 7 Days Qty: 14 0RF azithromycin 500 mg tablet 500 mg PO DAILY 3 Days Qty: 3 0RF guaifenesin [Mucinex] 600 mg tablet extended release 12hr 1,200 mg PO BID 10 Days Qty: 40 0RF furosemide [Lasix] 40 mg tablet 40 mg PO DAILY Qty: 60 0RF Continued metformin 500 mg tablet extended release 24 hr 1,000 mg PO DAILY (DME) PEP device See Rx Instructions .Route .MEDSUPPLY Qty: 1 0RF Rx Instructions: with training venlafaxine 75 mg capsule,extended release 24hr 75 mg PO DAILY levothyroxine 175 mcg tablet 175 mcg PO DAILY buspirone 7.5 mg tablet 7.5 mg PO BID cholecalciferol (vitamin D3) 100 mcg (4,000 unit) tablet 100 mcg PO DAILY lisinopril 5 mg tablet 5 mg PO DAILY multivitamin Tablet 1 tab PO DAILY acetaminophen 500 mg tablet 1,000 mg PO Q8H PRN (Reason: pain) hydroxyzine pamoate 50 mg capsule 50 mg PO BID insulin glargine [Lantus U-100 Insulin] 100 unit/mL Solution 10 unit SUBCUT 0800 insulin lispro [Humalog KwikPen Insulin] 100 unit/mL insulin pen 12 unit SUBCUT BIDAC ferrous sulfate 325 mg (65 mg iron) Tablet 325 mg PO DAILY atorvastatin 40 mg tablet 40 mg PO QHS clopidogrel 75 mg tablet 75 mg PO DAILY metoprolol succinate 25 mg tablet extended release 24 hr 25 mg PO DAILY rivaroxaban 20 mg tablet 20 mg PO DAILY Rx Instructions: must administer with evening meal Referrals / Follow Up: Raffaele Olguin MD [Primary Care Provider] - 3-5 Days Disposition Disposition (needs filled in before D/C Order can be placed): Home, Self Care Charges/Coding Visit Charges Inpatient E&M: 98970 Disch Hosp >30min
[2024-09-03] MEDS: Ceftriaxone 1 GM/50 ML BAG IV (11:52)
[2024-09-03] MEDS: Ferrous Sulfate 325 MG Tablet PO (11:53)
--- NOTE | 2024-09-03 12:04 | CASEMGMT ---
Discharge Planning Discharge Summary sent to [facility]. Monika Woods DC Planning Asst.
[2024-09-03 12:31] LABS: Bedside Glucose 146 mg/dL (74-106)
--- NOTE | 2024-09-03 12:56 | CASEMGMT ---
Addendum entered by Bautista Garcia 09/03/24 15:17: O2 script sent to [facility] via [facility]. Jose Manuel @ [facility] aware pt dc'ing home today and is awaiting delivery of O2 tank to his room. Addendum entered by Bautista Garcia 09/03/24 14:55: Home amb testing has been completed. Pt qualifies for O2 @ 2 L/M w/exertion. Dr Braxton made aware. Script obtained. MG ANDERSON to room. Pt sitting up in chair, @ bedside. Made aware pt needs O2 @ 2 l/m w/exertion. Verbal list provided of local DME co's. chose [facility]. Original Note: MG ANDERSON note: Discharge order is in. MG ANDERSON to room. Pt resting in bed, @ bedside. Pt already has an appt @ Dr Olguin's office tomorrow @ 8:30 AM. This was added to pt's dc plan. will be taking pt home. They are aware Rx's have been sent to [facility] and they can pick those up today. Pt and aware [facility] will be notified of dc. They deny having any further dc needs/questions/concerns. Home O2 amb testing to be completed prior to dc. MG Winter, aware. Luis BROWER RN CM
--- NOTE | 2024-09-03 15:15 | CHAPLAIN ---
Type of Pastoral Visit _x__ Initial Visit ___ Follow-up Visit ___ On-call Visit ___ General Patient Visit ___ Spiritual Assessment ___ Family Conference ___ Bereavement ___ Rapid Response ___ Code Blue ___ Other (describe below) Pastoral Care Referral From ___ Patient _x__ Family ___ Nurse ___ Physician ___ [employer] Pro ___ Customer Orders Clerk ___ Other (describe below) Sacrament/Intervention _x__ Active listening ___ Anointing ___ Latter-Day ___ Bereavement ___ Communion ___ Laurel exploration ___ ___ Life review ___ Prayer ___ Reconciliation ___ Sacrament of Sick _x__ Supportive presence ___ Wedding ___ Other (describe below) Pastoral Comments patient, spouse, and RN are in the room as RN is trying to get vitals; pt is gruff and demanding saying that he wants to go home now and does not understand why he has to stay or why it is taking so long to be discharged; this dental service chief offers support and gives calm presence and statements to help ease the patient; for moments the patient is calm and quiet but then he continues to repeat his agitation at being in the hospital and wanting to go see his dog; offer of support continues but patient ignores statements and spouse appears embarrassed
== END 2024-09-03 16:48 | disposition home health service (06) | DRG 193 ==
LOC: ED 20:39 → PCU 21:52
PROVIDERS: Admitting Provider Family Medicine; Emergency Provider Emergency Medicine; PCP Family Medicine; Visit Provider Internal Medicine
DX: J18.9 Pneumonia, unspecified organism (principal); I50.33 Acute on chronic diastolic (congestive) heart failure; J44.0 Chronic obstructive pulmonary disease with (acute) lower respiratory infection; D69.6 Thrombocytopenia, unspecified; D63.8 Anemia in other chronic diseases classified elsewhere; E11.22 Type 2 diabetes mellitus with diabetic chronic kidney disease; E03.9 Hypothyroidism, unspecified; D50.9 Iron deficiency anemia, unspecified; I11.0 Hypertensive heart disease with heart failure; F32.A Depression, unspecified; E66.9 Obesity, unspecified; I48.0 Paroxysmal atrial fibrillation; E78.00 Pure hypercholesterolemia, unspecified; I25.10 Atherosclerotic heart disease of native coronary artery without angina pectoris; Z79.4 Long term (current) use of insulin; F41.9 Anxiety disorder, unspecified; Z95.810 Presence of automatic (implantable) cardiac defibrillator; Z95.5 Presence of coronary angioplasty implant and graft; Z87.891 Personal history of nicotine dependence; Z79.899 Other long term (current) drug therapy; Z79.02 Long term (current) use of antithrombotics/antiplatelets; Z79.84 Long term (current) use of oral hypoglycemic drugs; Z68.30 Body mass index [BMI] 30.0-30.9, adult
CPT/HCPCS: 36415; 71046; 71250; 74018; 80048; 80053; 82962; 83690; 83735; 83880; 84100; 84145; 84484; 85025; 87449; 87633; 93005; 94640; 94668; 97162; 97166; 99285; J0696

== ENCOUNTER → 2024-09-04 | Outpatient (CLI) | payer MEDICARE, OTHER, SELFPAY ==
[2024-09-04 10:45] LABS: Absolute Lymphocyte Count 1.13 X10^3/uL (0.83-4.51); Absolute Neutrophil Count 3.4 X10^3/uL (2.0-7.7); Basophil# 0.02 X10^3/uL; Basophil% 0.4 % (0-1); Eosinophil# 0.19 X10^3/uL; Eosinophils% 3.6 % (0-5); Hematocrit 35.4 % (40-54); Hemoglobin 11.4 g/dL (13.0-16.5); Lymphocyte # 1.13 X10^3/ul (0.83-4.51); Lymphocyte % 21.6 % (19-41); Mean Corp Hgb Conc 32.2 g/dL (32-36); Mean Corpuscular Volume 96.2 fL (80-94); Mean Platelet Vol. 13.9 fl (6.2-12.0); Monocyte# 0.51 X10^3/uL; Monocyte% 9.8 % (0-10); NRBC Flagged by Analyzer 0 % (0-5); Neutrophil # 3.35 X10^3/uL (2.7-7.7); POSITIVE COUNT YES; RBC Distribution Width CV 14.1 % (11.6-14.6); Red Blood Count 3.68 M/mm3 (4.6-6.2); White Blood Count 5.2 K/mm3 (4.4-11.0)
[2024-09-04 11:18] LABS: ALB/GLOB Ratio 0.9 RATIO (0.9-2.4); AST(SGOT) 19 U/L (<=37); Alanine Aminotransfer ALT/SGPT 12 U/L (<=46); Albumin, Serum 3.5 g/dL (3.4-4.8); Alkaline Phosphatase 117 U/L (40-129); Anion Gap 9 (5-15); BUN 19 mg/dL (4-19); BUN/Creat Ratio 21.4 RATIO (10-20); Calcium,Total 9.1 mg/dL (7.6-11.0); Carbon Dioxide 22.9 mmol/L (21.0-32.0); Chloride 105 mmol/L (98-108); Creatinine, Serum 0.91 mg/dL (0.70-1.20); EST Glomerular Filtration Rate 88 (>60); Globulin 4.1 g/dL (2.2-4.2); Glucose 176 mg/dL (70-99); Potassium 3.9 mmol/L (3.3-5.1); Protein, Total 7.6 g/dL (5.9-8.4); Sodium Level 137 mmol/L (133-145); Total Bilirubin 0.56 mg/dL (0.00-1.30)
[2024-09-04 11:28] LABS: Hemoglobin A1c 6.8 % (<=5.6)
[2024-09-04 11:34] LABS: Differential Indicated SCAN CRITERIA MET; Platelet Estimate SLT DEC (ADEQ)
== END | disposition home or self-care (01) ==
LOC: MFPLAB 09:28
PROVIDERS: PCP Family Medicine; Referring Provider Family Medicine; Visit Provider Family Medicine
DX: I48.91 Unspecified atrial fibrillation (principal); E11.49 Type 2 diabetes mellitus with other diabetic neurological complication
CPT/HCPCS: 36415; 80053; 83036; 85025

== ENCOUNTER 2024-09-21 14:32 | Emergency (ER) | payer MEDICARE, OTHER, SELFPAY ==
[2024-09-21 14:33] VITALS: BP 112/65; PULSE 70; RESP 18; TEMP 36.6; O2SAT 100
--- NOTE | 2024-09-21 14:47 | EX.ED.DYSGE1 ---
HPI <JIAN Kwong - Last Filed: 09/21/24 19:28> History of Present Illness Chief Complaint: Abd Pain Narrative Narrative: Patient presenting today with pain to the right anterior lower rib margin/right upper quadrant he has had over the past 3 weeks. He reports that the pain has been worse over the past week or so. It is intermittent, nothing seems to make it better or worse. He is eating and drinking normally. Eating does not seem to worsen his pain. He denies fevers, chills, nausea, vomiting, diarrhea, and urinary symptoms. He last had a bowel movement today that was normal. He did have pneumonia at the beginning of the month he was admitted here for 2 days for hypoxia and pneumonia. He was discharged home on 09/20 with azithromycin and cefdinir. He does not currently have a cough or shortness of breath. [facility] <JIAN Kwong - Last Filed: 09/21/24 19:28> [facility] Medical History Coronary artery disease Kidney stones Atrial fibrillation Wears dentures Blind Depression Insulin dependent diabetes mellitus Ambulates with cane Anemia High cholesterol Injury of head and neck Former smoker History of Holter monitoring History of echocardiogram Cardiology follow-up encounter History of atrial fibrillation Open wound of back without complication Venous insufficiency of both lower extremities Ulcer of left lower extremity with fat layer exposed Longstanding persistent atrial fibrillation Left ventricular diastolic dysfunction Chronic diastolic (congestive) heart failure Right bundle branch block (RBBB) Essential (primary) hypertension COPD (chronic obstructive pulmonary disease) Anxiety and depression Obesity (BMI 30-39.9) Hyperlipidemia Hypothyroidism DM type 2 (diabetes mellitus, type 2) Hx of transfusion of whole blood Home Medications ?Medication ?Instructions ?Recorded ?Last Taken ?Type metformin 500 mg tablet,extended 1,000 mg PO DAILY 03/02/20 09/20/24 History release 24 hr PEP device #1 ea 11/14/21 Unknown Rx ferrous sulfate 325 mg (65 mg 325 mg PO DAILY supplement 01/02/22 09/01/24 History iron) tablet acetaminophen 500 mg tablet 1,000 mg PO Q8H PRN pain 08/03/24 09/20/24 History buspirone 7.5 mg tablet 7.5 mg PO BID 08/03/24 09/21/24 History hydroxyzine pamoate 50 mg capsule 50 mg PO BID 08/03/24 09/21/24 History insulin lispro 100 unit/mL 12 unit subcut BIDAC 08/03/24 09/21/24 History subcutaneous pen (Humalog KwikPen (U-100) Insulin) lisinopril 5 mg tablet 5 mg PO DAILY bp 08/03/24 09/01/24 History Held on 09/03/24. Instructions: low bp atorvastatin 40 mg tablet 40 mg PO QHS 09/01/24 09/20/24 History clopidogrel 75 mg tablet 75 mg PO DAILY 09/01/24 09/01/24 History levothyroxine 175 mcg tablet 175 mcg PO DAILY 09/01/24 09/20/24 History metoprolol succinate 25 mg 25 mg PO DAILY 09/01/24 09/01/24 History tablet,extended release 24 hr rivaroxaban 20 mg tablet 20 mg PO DAILY 09/01/24 09/20/24 History venlafaxine 75 mg capsule,extended 75 mg PO DAILY 09/01/24 09/01/24 History release 24 hr furosemide 40 mg tablet (Lasix) 40 mg PO DAILY #60 tabs 09/03/24 09/21/24 Rx acetylcysteine 600 mg capsule 600 mg PO BID 09/21/24 Unknown History ascorbic acid (vitamin C) 500 mg 500 mg PO DAILY 09/21/24 09/21/24 History tablet cholecalciferol (vitamin D3) 25 25 mcg PO DAILY 09/21/24 Unknown History mcg (1,000 unit) tablet (Vitamin D3) insulin glargine 100 unit/mL (3 10 unit subcut DAILY 09/21/24 09/21/24 History mL) subcutaneous pen (Lantus Solostar U-100 Insulin) Allergy/AdvReac Type Severity Reaction Status Date / Time shellfish derived Allergy Hives Verified 09/21/24 14:33 Family History Mother Cancer Sister Heart disease Father , age 97, no medical history per family reported, not taking any medications. No problems noted. Surgical History ICD (implantable cardioverter-defibrillator) in place History of coronary artery stent placement (06/25/24) Hx of excision of dermoid cyst (~01/2022) Hx of cataract surgery History of inguinal hernia repair H/O hernia repair Social History household members: spouse Smoking Status: Former smoker quit date: 06/03/09 second hand exposure: No alcohol intake: never substance use type: does not use ROS <JIAN Kwong - Last Filed: 09/21/24 19:28> ROS ED Constitutional Constitutional ED: Denies chills or fever(s) Cardiovascular Cardiovascular: Denies chest pain Respiratory/Chest Respiratory/Chest: Denies dyspnea Gastrointestinal Gastrointestinal: Reports abdominal pain; Denies constipation, diarrhea, melena, nausea or vomiting Genitourinary Genitourinary ED: Denies dysuria, hematuria or urinary urgency Musculoskeletal Musculoskeletal: Denies arthralgias or myalgias Integumentary Denies rash Neurologic Neurologic: Denies weakness EXAM <JIAN Kwong - Last Filed: 09/21/24 19:28> Physical Exam Const Vital Signs: 09/21/24 14:33 09/21/24 16:32 09/21/24 17:42 Temperature 97.8 F 97.8 F Temperature Source Oral Pulse Rate 70 71 Respiratory Rate 18 18 Blood Pressure 112/65 110/75 116/59 L Blood Pressure Mean 80 86 78 Pulse Ox 100 93 Oxygen Delivery Method Room Air Positive well nourished, well developed and no apparent distress General Appearance ED: well developed HEENT Reports normocephalic and head/scalp atraumatic Mouth ED: Yes moist mucous membranes normal Eyes PERRL and EOMs intact bilaterally Neck full ROM and supple Chest Wall inspection of chest normal Resp normal respiratory effort and clear to auscultation bilaterally Cardio regular rate and regular rhythm GI soft to palpation, non-tender, non-distended and no masses GI Narrative: Negative Kong sign, no abdominal tenderness, rigidity, or guarding. Back/Spine normal ROM and normal to inspection Extremity normal to inspection and full ROM Neuro oriented x3, CN's II-XII intact bilaterally, moves all extremities, no focal motor deficits and no sensory deficits noted Sensorium / Orientation: awake and alert Psych mental status grossly normal and thought process normal Skin no rashes or lesions noted and no wounds <Dr. Gary Ashby MD - Last Filed: 09/21/24 22:05> Physical Exam Const Vital Signs: 09/21/24 14:33 09/21/24 16:32 09/21/24 17:42 Temperature 97.8 F 97.8 F Temperature Source Oral Pulse Rate 70 71 Respiratory Rate 18 18 Blood Pressure 112/65 110/75 116/59 L Blood Pressure Mean 80 86 78 Pulse Ox 100 93 Oxygen Delivery Method Room Air [facility] <JIAN Kwong - Last Filed: 09/21/24 19:28> [facility] Narrative Medical decision making narrative: Patient presenting today with pain to his right upper quadrant/right lower rib margin he has had over the past 3 weeks. He recently had pneumonia at the beginning of the month and was admitted here from 09/01 to 09/03, he was discharged on azithromycin and cefdinir. Today he is nontoxic-appearing in no acute distress. His abdomen here is soft and nontender, he has negative right upper quadrant pain, negative Kong sign, negative McBurney's point tenderness. He has been eating and drinking normally. He has unremarkable vital signs. Abdominal labs were obtained, his CBC is unremarkable, hemoglobin near baseline. CMP shows a mildly elevated glucose at 173, UA negative for UTI, lipase 20. Given his pain has been ongoing for 3 weeks, his labs are unremarkable, and his abdomen is soft and nontender I do not feel that any abdominal imaging is indicated at this time. He did report that he was looking forward to eating dinner when he got home, I recommend that he follow-up closely with his PCP and he will be discharged home in stable condition. I have personally performed a face to face assessment of the patient and have reviewed the GORDY Note. I performed a substantive portion of the visit including all aspects of the following. My joe findings include: History is remarkable for a 74-year-old male who was admitted on September 01 for chest pain and diagnosed with by lateral lower lobe pneumonia. He was discharged on September 30. The discharge summary note authored by Dr. Wood Glover was reviewed. He states the pain started approximate 3 weeks ago. He states his response was different than his 's. His states a week ago. It became more noticeable and he complained of his a week ago. He denies intolerance to greasy or fried foods. He denies any alleviating, exacerbating precipitating factors. He is legally blind and is not able to tell me the color, consistency or caliber of his stool. He denies fever, chills night sweats. He denies cough, dyspnea or dyspnea on exertion. He denies history of renal or ureterolithiasis. Patient denies dysuria, frequency, urgency or hematuria. He has no history of trauma. He did receive Lovenox and there is bruising noted. He is now complaining of pain in the supraumbilical area. Initially he states the pain was near the right costal margin right lower rib cage right upper quadrant. Patient does not know if there is a change in the color of his urine because he is legally blind. Exam is vital signs noted and are normal. HEENT exam is remarkable for abnormal appearing right eye. Left eye appears normal however he has minimal vision from that eye. HEENT otherwise is normal. Lungs are clear to auscultation with symmetric breath sounds. Heart is regular. Rate is normal. There are no murmur, gallop or rub. He has no reproducible chest pain or abdominal pain in the right upper quadrant. He is now complaining of pain that is superior to the umbilicus where he has bruises and most likely due to the Lovenox injections he received. Lower extremity exam is unremarkable. Medical Decision Making differential diagnosis abdominal pain unknown etiology, pain due to lower lobe pneumonia, biliary disease, peptic ulcer disease which would include GERD, reflux gastritis and hiatal hernia. History is not consistent with cardiac. Parts of his history are limited due to the fact that he is blind. Workup included competence of metabolic panel, CBC. Other additions or changes: [None] Lab Data Labs: Laboratory Results - last 24 hr 09/21/24 09/21/24 14:55 15:05 WBC 4.4 RBC 3.75 L Hgb 11.3 L Hct 34.5 L MCV 92.0 MCH 30.1 MCHC 32.8 RDW Std Deviation 43.1 RDW Coeff of Marifer 12.9 Plt Count TNP MPV TNP Immature Gran % (Auto) 0.200 Neut % (Auto) 50.4 Lymph % (Auto) 34.3 [place] % (Auto) 12.4 H Eos % (Auto) 2.5 Baso % (Auto) 0.2 Absolute Neuts (auto) 2.2 Absolute Lymphs (auto) 1.49 Nucleated RBC % 0 Platelet Estimate ADEQUATE Sodium 136 Potassium 4.2 Chloride 101 Carbon Dioxide 25.9 Anion Gap 8 BUN 19 Creatinine 0.96 Est GFR (MDRD) Non-Af 82 BUN/Creatinine Ratio 20.3 H Glucose 173 H Calcium 9.0 Total Bilirubin 0.60 AST 24 ALT 13 Alkaline Phosphatase 132 H Total Protein 7.5 Albumin 3.6 Globulin 3.9 Albumin/Globulin Ratio 0.9 Lipase 20 Urine Color Yellow Urine Clarity Clear Urine pH 6.0 Ur Specific [place] 1.015 Urine Protein 15 H Urine Glucose (UA) Normal Urine Ketones Negative Urine Occult Blood Negative Urine Nitrite Negative Urine Bilirubin Negative Urine Urobilinogen Normal Ur Leukocyte Esterase Negative Urine RBC 0-5 SEEN Urine WBC 0-5 SEEN Ur Squamous Epith Cells 0-5 SEEN Urine Bacteria 0 SEEN Urine Mucus 0 SEEN <Dr. Gary Ashby MD - Last Filed: 09/21/24 22:05> [facility] Narrative Medical decision making narrative: I have personally performed a face to face assessment of the patient and have reviewed the GORDY Note. I performed a substantive portion of the visit including all aspects of the following. My oje findings include: History is remarkable for a 74-year-old male who was admitted on September 01 for chest pain and diagnosed with by lateral lower lobe pneumonia. He was discharged on September 30. The discharge summary note authored by Dr. Wood Glover was reviewed. He states the pain started approximate 3 weeks ago. He states his response was different than his 's. His states a week ago. It became more noticeable and he complained of his a week ago. He denies intolerance to greasy or fried foods. He denies any alleviating, exacerbating precipitating factors. He is legally blind and is not able to tell me the color, consistency or caliber of his stool. He denies fever, chills night sweats. He denies cough, dyspnea or dyspnea on exertion. He denies history of renal or ureterolithiasis. Patient denies dysuria, frequency, urgency or hematuria. He has no history of trauma. He did receive Lovenox and there is bruising noted. He is now complaining of pain in the supraumbilical area. Initially he states the pain was near the right costal margin right lower rib cage right upper quadrant. Patient does not know if there is a change in the color of his urine because he is legally blind. Exam is vital signs noted and are normal. HEENT exam is remarkable for abnormal appearing right eye. Left eye appears normal however he has minimal vision from that eye. HEENT otherwise is normal. Lungs are clear to auscultation with symmetric breath sounds. Heart is regular. Rate is normal. There are no murmur, gallop or rub. He has no reproducible chest pain or abdominal pain in the right upper quadrant. He is now complaining of pain that is superior to the umbilicus where he has bruises and most likely due to the Lovenox injections he received. Lower extremity exam is unremarkable. Medical Decision Making differential diagnosis abdominal pain unknown etiology, pain due to lower lobe pneumonia, biliary disease, peptic ulcer disease which would include GERD, reflux gastritis and hiatal hernia. History is not consistent with cardiac. Parts of his history are limited due to the fact that he is blind. Workup included competence of metabolic panel, CBC. Other additions or changes: [None] History & Record Review Additional record(s) reviewed:: Prior inpatient record (Patient's admission note and discharge summary for chest pain and bilateral lower lobe pneumonia was reviewed.), Prior outpatient record (There is a office note from pulmonary that was authored by Mey Lugo that was reviewed. He was seen for bronchiectasis.), Prior ED visit (ER note authored by Dr. Abbott was reviewed.) and Prior labs Lab Data Attestation: I reviewed the patient's lab results. Lab results narrative: White count is normal. Differential is normal. Patient has mild anemia with normal indices. This is chronic. Comprehensive metabolic panel is marked for glucose of 173 with normal CO2 anion gap. Macro urinalysis is negative. Labs: Laboratory Results - last 24 hr 09/21/24 09/21/24 14:55 15:05 WBC 4.4 RBC 3.75 L Hgb 11.3 L Hct 34.5 L MCV 92.0 MCH 30.1 MCHC 32.8 RDW Std Deviation 43.1 RDW Coeff of Marifer 12.9 Plt Count TNP MPV TNP Immature Gran % (Auto) 0.200 Neut % (Auto) 50.4 Lymph % (Auto) 34.3 [place] % (Auto) 12.4 H Eos % (Auto) 2.5 Baso % (Auto) 0.2 Absolute Neuts (auto) 2.2 Absolute Lymphs (auto) 1.49 Nucleated RBC % 0 Platelet Estimate ADEQUATE Sodium 136 Potassium 4.2 Chloride 101 Carbon Dioxide 25.9 Anion Gap 8 BUN 19 Creatinine 0.96 Est GFR (MDRD) Non-Af 82 BUN/Creatinine Ratio 20.3 H Glucose 173 H Calcium 9.0 Total Bilirubin 0.60 AST 24 ALT 13 Alkaline Phosphatase 132 H Total Protein 7.5 Albumin 3.6 Globulin 3.9 Albumin/Globulin Ratio 0.9 Lipase 20 Urine Color Yellow Urine Clarity Clear Urine pH 6.0 Ur Specific [place] 1.015 Urine Protein 15 H Urine Glucose (UA) Normal Urine Ketones Negative Urine Occult Blood Negative Urine Nitrite Negative Urine Bilirubin Negative Urine Urobilinogen Normal Ur Leukocyte Esterase Negative Urine RBC 0-5 SEEN Urine WBC 0-5 SEEN Ur Squamous Epith Cells 0-5 SEEN Urine Bacteria 0 SEEN Urine Mucus 0 SEEN Discharge Plan Triage Chief Complaint: Abd Pain ED Midlevel Provider: Tati Caballero ED Provider: Gary Ashby Dx/Rx/DC Orders Clinical Impression: Abdominal pain Instructions: Abdominal Pain Prescriptions: No Action metformin 500 mg tablet extended release 24 hr 1,000 mg PO DAILY (DME) PEP device See Rx Instructions .Route .MEDSUPPLY Qty: 1 0RF Rx Instructions: with training venlafaxine 75 mg capsule,extended release 24hr 75 mg PO DAILY levothyroxine 175 mcg tablet 175 mcg PO DAILY buspirone 7.5 mg tablet 7.5 mg PO BID lisinopril 5 mg tablet 5 mg PO DAILY acetaminophen 500 mg tablet 1,000 mg PO Q8H PRN (Reason: pain) hydroxyzine pamoate 50 mg capsule 50 mg PO BID insulin lispro [Humalog KwikPen Insulin] 100 unit/mL insulin pen 12 unit SUBCUT BIDAC ferrous sulfate 325 mg (65 mg iron) Tablet 325 mg PO DAILY atorvastatin 40 mg tablet 40 mg PO QHS clopidogrel 75 mg tablet 75 mg PO DAILY metoprolol succinate 25 mg tablet extended release 24 hr 25 mg PO DAILY rivaroxaban 20 mg tablet 20 mg PO DAILY Rx Instructions: must administer with evening meal furosemide [Lasix] 40 mg tablet 40 mg PO DAILY Qty: 60 0RF ascorbic acid (vitamin C) 500 mg tablet 500 mg PO DAILY cholecalciferol (vitamin D3) [Vitamin D3] 25 mcg (1,000 unit) tablet 25 mcg PO DAILY acetylcysteine 600 mg capsule 600 mg PO BID insulin glargine [Lantus Solostar U-100 Insulin] 100 unit/mL (3 mL) insulin pen 10 unit subcut DAILY Primary Care Provider: Raffaele Olguin Referrals: Raffaele Olguin MD [Primary Care Provider] - 5-7 Days Activity Restrictions/Additional Instructions: Follow-up with your PCP and return for any worsening symptoms. Print Language: Thai Disposition Disposition: Home, Self Care Discharge Date/Time: 09/21/24 17:55
[2024-09-21] MEDS: Ketorolac 15 MG/ML Vial IV (14:57)
[2024-09-21 15:13] LABS: Absolute Lymphocyte Count 1.49 X10^3/uL (0.83-4.51); Absolute Neutrophil Count 2.2 X10^3/uL (2.0-7.7); Basophil# 0.01 X10^3/uL; Basophil% 0.2 % (0-1); Eosinophil# 0.11 X10^3/uL; Eosinophils% 2.5 % (0-5); Hematocrit 34.5 % (40-54); Hemoglobin 11.3 g/dL (13.0-16.5); Lymphocyte # 1.49 X10^3/ul (0.83-4.51); Lymphocyte % 34.3 % (19-41); Mean Corp Hgb Conc 32.8 g/dL (32-36); Mean Corpuscular Hgb 30.1 pg (27.0-32.0); Monocyte# 0.54 X10^3/uL; Monocyte% 12.4 % (0-10); NRBC Flagged by Analyzer 0 % (0-5); Neutrophil # 2.19 X10^3/uL (2.7-7.7); Neutrophil % 50.4 % (47-70); POSITIVE COUNT YES; RBC Distribution Width CV 12.9 % (11.6-14.6); RBC Distribution Width SD 43.1 fl (35.1-43.9); Red Blood Count 3.75 M/mm3 (4.6-6.2); White Blood Count 4.4 K/mm3 (4.4-11.0)
[2024-09-21 15:17] LABS: Bacteria 0 SEEN /hpf (None Seen); Mucous, Urine 0 SEEN /hpf (<or=2+)
[2024-09-21 15:27] LABS: Color, Urine Yellow (Yellow); Glucose, Dipstick Normal (Normal); Ketone-Dipstick Negative (Negative); Leukocyte Esterase-Dipstick Negative /ul (Negative); Nitrite-Dipstick Negative (Negative); Occult Blood-Urine Negative /ul (Negative); Protein-Dipstick 15 mg/dl (Negative); Specific Gravity, Urine 1.015 (1.002-1.030); Urine Bilirubin Dipstick Negative (Negative); Urine Clarity Clear (Clear); Urine Urobilinogen Normal (Normal)
[2024-09-21 15:33] LABS: ALB/GLOB Ratio 0.9 RATIO (0.9-2.4); AST(SGOT) 24 U/L (<=37); Alanine Aminotransfer ALT/SGPT 13 U/L (<=46); Albumin, Serum 3.6 g/dL (3.4-4.8); Alkaline Phosphatase 132 U/L (40-129); Anion Gap 8 (5-15); BUN 19 mg/dL (4-19); BUN/Creat Ratio 20.3 RATIO (10-20); Carbon Dioxide 25.9 mmol/L (21.0-32.0); Chloride 101 mmol/L (98-108); Creatinine, Serum 0.96 mg/dL (0.70-1.20); EST Glomerular Filtration Rate 82 (>60); Globulin 3.9 g/dL (2.2-4.2); Glucose 173 mg/dL (70-99); Lipase 20 U/L (13-75); Potassium 4.2 mmol/L (3.3-5.1); Protein, Total 7.5 g/dL (5.9-8.4); Sodium Level 136 mmol/L (133-145)
[2024-09-21 16:02] LABS: Differential Indicated SCAN CRITERIA MET
[2024-09-21 16:32] VITALS: BP 110/75
[2024-09-21 17:01] LABS: Red Blood Cells-Urine 0-5 SEEN /hpf (0-5); Squamous Epithelial Cells - UA 0-5 SEEN /hpf (0-5); White Blood Cells 0-5 SEEN /hpf (0-5)
[2024-09-21 17:39] LABS: Platelet Estimate ADEQUATE (ADEQ)
[2024-09-21 17:42] VITALS: BP 116/59; PULSE 71; RESP 18; TEMP 36.6; O2SAT 93
== END 2024-09-21 17:55 | disposition home or self-care (01) ==
PROVIDERS: Physician Assistant; Emergency Provider Emergency Medicine; PCP Family Medicine; Referring Provider Emergency Medicine; Visit Provider Emergency Medicine
DX: R10.9 Unspecified abdominal pain (principal); I50.32 Chronic diastolic (congestive) heart failure; I11.0 Hypertensive heart disease with heart failure; J44.9 Chronic obstructive pulmonary disease, unspecified; E11.65 Type 2 diabetes mellitus with hyperglycemia; Z79.4 Long term (current) use of insulin; E78.00 Pure hypercholesterolemia, unspecified; Z87.891 Personal history of nicotine dependence; Z79.84 Long term (current) use of oral hypoglycemic drugs; Z79.890 Hormone replacement therapy; E03.9 Hypothyroidism, unspecified; H54.3 Unqualified visual loss, both eyes; D64.9 Anemia, unspecified
CPT/HCPCS: 80053; 81001; 83690; 85025; 96374; 99283; A4216

== ENCOUNTER → 2024-10-14 | Outpatient (CLI) | payer MEDICARE, OTHER, SELFPAY ==
--- NOTE | 2024-10-14 08:52 | US_ITS ---
PROCEDURE: ABDOMEN LIMITED 10/14/2024 REASON FOR EXAM: RUQ PAIN TECHNIQUE: Complete abdominal ultrasound barreto-scale images with color doppler. PATIENT PREPARATION: Per protocol COMPARISON: None FINDINGS: Liver: Diffusely echogenic suggesting fatty infiltration. Gallbladder: Solitary gallstone measuring 1.1 cm. The gallbladder wall measures 2 mm. Common bile duct: Normal measuring 4.8 mm . Pancreas: Normal Kidneys: The right kidney measures 9.9 cm x 5.5 cm x 4.9 cm. US/Abdomen Limited IMPRESSION: Solitary gallstone measuring 1.1 cm. Fatty infiltration of the liver. Reading Location: [id number]
== END | disposition home or self-care (01) ==
PROVIDERS: PCP Family Medicine; Referring Provider Family Medicine; Visit Provider Family Medicine
DX: R10.11 Right upper quadrant pain (principal)
CPT/HCPCS: 76705

== ENCOUNTER 2024-11-14 10:29 | Inpatient (IN) | payer MEDICARE, OTHER, SELFPAY ==
[2024-11-14] VITALS (24 sets, daily range): BP systolic 83–129; BP diastolic 60–91; PULSE 67–106; RESP 12–22; TEMP 35.9–36.7; O2SAT 92–99; BMI 28.2; BMI 27.1
--- NOTE | 2024-11-14 10:37 | EKG12_ITS ---
Test Reason : Blood Pressure : */* mmHG Vent. Rate : 105 BPM Atrial Rate : 178 BPM P-R Int : * ms QRS Dur : 162 ms QT Int : 364 ms P-R-T Axes : 119 -48 119 degrees QTcB Int : 481 ms Critical Test Result: AV Block Sinus tachycardia with 2nd degree A-V block (Mobitz I) with frequent ventricular-paced complexes and Premature supraventricular complexes and with occasional Premature ventricular complexes with junctional escape complexes Left axis deviation Non-specific intra-ventricular conduction block Inferior infarct , age undetermined Abnormal ECG Confirmed by DEE BLAS, MARTHA ([id number]), proposal editor CAMPOS PIERCE ([id number]) on 11/17/2024 8:20:02 AM Referred By: Confirmed By: MARTHA PRICE MD
--- NOTE | 2024-11-14 10:37 | RAD_ITS ---
PROCEDURE: CHEST 1 VIEW (PORTABLE) 11/14/2024 REASON FOR EXAM: CHEST PAIN TECHNIQUE: Frontal view of the chest. FINDINGS: Hardware: Dual-chamber implanted cardiac device. EKG lead wires projecting over the chest. Heart: Normal size. Lungs: Grossly clear. Mild interstitial prominence likely chronic process Bones: No aggressive bone lesions. Other: Bochdalek's hernia as previously mentioned on prior exams. RAD/Chest 1 View (Portable) IMPRESSION: No acute process. Bochdalek's hernia. Reading Location[facility]
--- NOTE | 2024-11-14 10:38 | ED.VIS.CHEST ---
HPI History of Present Illness Chief Complaint: Chest Pain Detail of Chief Complaint: Defibrillator going off. Shocked 10 times in the last hour. Informant: patient and EMS Onset/Context/Timing Onset: Today Activity at onset: sudden Timing: Intermittent Narrative Narrative: 74-year-old male legally blind. Has a pacemaker defibrillator he thinks was placed around June of this year at [facility] in [place]. Said he stood up from the toilet today and he started getting shocks from his defibrillator. He believes it shocked him about 10 times in the last hour. He was brought in by paramedics they said it went off about 5 times prior to arrival. He denies any recent illness or complaints. States prior to being shocked he does feel lightheaded. Prior Similar Symptoms: No Recent Illness/Hospitalization: No PE Risk Factors: Negative for Recent Travel/Surgery, Recent Immobilization, Prior DVT or PE, Cancer or OCP + Smoking + >/=35 TAD Risk Factors: Negative for Marfan's Syndrome [facility] Medical History Coronary artery disease Kidney stones Atrial fibrillation Wears dentures Blind Depression Insulin dependent diabetes mellitus Ambulates with cane Anemia High cholesterol Injury of head and neck Former smoker History of Holter monitoring History of echocardiogram Cardiology follow-up encounter History of atrial fibrillation Open wound of back without complication Venous insufficiency of both lower extremities Ulcer of left lower extremity with fat layer exposed Longstanding persistent atrial fibrillation Left ventricular diastolic dysfunction Chronic diastolic (congestive) heart failure Right bundle branch block (RBBB) Essential (primary) hypertension COPD (chronic obstructive pulmonary disease) Anxiety and depression Obesity (BMI 30-39.9) Hyperlipidemia Hypothyroidism DM type 2 (diabetes mellitus, type 2) Hx of transfusion of whole blood Home Medications ?Medication ?Instructions ?Recorded ?Last Taken ?Type metformin 500 mg tablet,extended 1,000 mg PO DAILY 03/02/20 11/14/24 History release 24 hr PEP device #1 ea 11/14/21 Unknown Rx ferrous sulfate 325 mg (65 mg 325 mg PO DAILY supplement 01/02/22 11/14/24 History iron) tablet acetaminophen 500 mg tablet 1,000 mg PO Q8H PRN pain 08/03/24 09/20/24 History buspirone 7.5 mg tablet 7.5 mg PO BID 08/03/24 11/14/24 History hydroxyzine pamoate 50 mg capsule 50 mg PO BID 08/03/24 11/14/24 History insulin lispro 100 unit/mL 12 unit subcut BIDAC 08/03/24 11/14/24 History subcutaneous pen (Humalog KwikPen (U-100) Insulin) lisinopril 5 mg tablet 5 mg PO DAILY bp 08/03/24 09/01/24 History Held on 09/03/24. Instructions: low bp atorvastatin 40 mg tablet 40 mg PO QHS 09/01/24 11/13/24 History clopidogrel 75 mg tablet 75 mg PO DAILY 09/01/24 11/14/24 History levothyroxine 175 mcg tablet 175 mcg PO DAILY 09/01/24 09/20/24 History metoprolol succinate 25 mg 25 mg PO DAILY 09/01/24 11/14/24 History tablet,extended release 24 hr rivaroxaban 20 mg tablet 20 mg PO DAILY 09/01/24 11/14/24 History venlafaxine 75 mg capsule,extended 75 mg PO DAILY 09/01/24 11/14/24 History release 24 hr furosemide 40 mg tablet (Lasix) 40 mg PO DAILY #60 tabs 09/03/24 11/14/24 Rx acetylcysteine 600 mg capsule 600 mg PO BID 09/21/24 11/14/24 History ascorbic acid (vitamin C) 500 mg 500 mg PO DAILY 09/21/24 11/14/24 History tablet cholecalciferol (vitamin D3) 25 25 mcg PO DAILY 09/21/24 11/14/24 History mcg (1,000 unit) tablet (Vitamin D3) insulin glargine 100 unit/mL (3 10 unit subcut DAILY 09/21/24 11/14/24 History mL) subcutaneous pen (Lantus Solostar U-100 Insulin) blood sugar diagnostic (True #10 ea 11/10/24 Unknown History Metrix Glucose Test Strip) Allergy/AdvReac Type Severity Reaction Status Date / Time shellfish derived Allergy Hives Verified 11/10/24 09:03 Family History Mother Cancer Sister Heart disease Father , age 97, no medical history per family reported, not taking any medications. No problems noted. Surgical History ICD (implantable cardioverter-defibrillator) in place History of coronary artery stent placement (06/25/24) Hx of excision of dermoid cyst (~01/2022) Hx of cataract surgery History of inguinal hernia repair H/O hernia repair Social History household members: spouse Smoking Status: Former smoker quit date: 06/03/09 second hand exposure: No alcohol intake: never substance use type: does not use ROS ROS ED ROS Narrative Denies recent illness. Constitutional Constitutional ED: Denies chills or fever(s) Eyes Eyes: Reports none ENT ENT ED: Denies ear pain Cardiovascular Cardiovascular: Reports as per HPI Respiratory/Chest Respiratory/Chest: Denies cough Gastrointestinal Gastrointestinal: Denies abdominal pain Genitourinary Genitourinary ED: Denies dysuria Musculoskeletal Musculoskeletal: Denies arthralgias Integumentary Denies abscess Neurologic Neurologic: Denies headache(s) Psychiatric Psychiatric: Denies anxiety Endocrine Endocrinology: Denies cold intolerance Hematologic/Lymphatic Hematologic/Lymphatic: Denies easy bleeding Allergic/Immunologic Allergic/Immunologic ED: Denies mouth swelling EXAM Physical Exam Narrative Exam Narrative: Since 4-year-old male sitting upright in bed. Vital signs are stable afebrile. His current pulse is around 105. He is in a sinus rhythm. At times it is paced. Currently he is not in V. tach. Currently the pacemaker defibrillator is not firing. H EENT exam slightly blind in both eyes. Moist with membranes. Neck nontender no JVD. Lungs clear to auscultation bilaterally. Heart paced 105 no murmur. Chest wall and ribs are nontender. Abdomen soft nontender. Nondistended. Moving all 4 extremities. Nontender no edema. Neurologically is awake alert. Answering questions following commands. No focal motor deficits. Const Vital Signs: 11/14/24 10:30 11/14/24 10:37 11/14/24 11:00 Temperature 96.7 F L Temperature Source Axillary Pulse Rate 106 H 76 Respiratory Rate 14 19 H Blood Pressure 123/78 H 109/69 Blood Pressure Mean 93 82 Pulse Ox 97 97 98 Oxygen Delivery Method Room Air Room Air 11/14/24 11:30 11/14/24 12:00 11/14/24 12:30 Temperature Temperature Source Pulse Rate 67 98 67 Respiratory Rate 19 H 19 H 19 H Blood Pressure 98/77 122/65 H 110/76 Blood Pressure Mean 84 84 87 Pulse Ox 95 99 94 Oxygen Delivery Method Room Air Room Air Room Air 11/14/24 12:34 Temperature 98 F Temperature Source Pulse Rate 77 Respiratory Rate 14 Blood Pressure 110/76 Blood Pressure Mean 87 Pulse Ox 95 Oxygen Delivery Method Positive well nourished and well developed; Negative for cachectic, contractures or unkempt General Appearance ED: well developed and NAD; Negative for unkempt, cachectic, contractures or pallor Nutritional Appearance: Negative for cachectic HEENT Reports moist mucous membranes normocephalic and atraumatic Eyes Negative for PERRL Eyes Narrative: Blind. Neck no lymphadenopathy, supple and no JVD Chest Wall inspection of chest normal and palpation of chest normal Resp normal respiratory effort and clear to auscultation bilaterally Cardio Rate: other Other Details: Paced rhythm 105. Peripheral Pulses: pulses 2+ throughout GI normal to inspection, nondistended, normoactive bowel sounds, soft to palpation, non-tender, non-distended and no masses Back/Spine no CVA tenderness and no thoracic nor lumbar tenderness Extremity normal to inspection General Extremety ED: Negative for edema or tenderness General Extremity: Negative for edema Neuro oriented x3 and No CN's II-XII intact bilaterally Neuro Narrative: Blind. Sensorium / Orientation: awake, alert, oriented to person, oriented to place and oriented to time; Negative for confused or lethargic Motor Exam: strength 5/5 throughout Psych mental status grossly normal Appearance: Negative for unkempt Skin no rashes or lesions noted and no wounds General Skin Exam: Negative for jaundice or pallor Rashes: No rashes noted Trauma: Negative for abrasion or laceration MDM MDM MDM Narrative Medical decision making narrative: 74-year-old male with a pacemaker defibrillator fired about 10 times in the last hour. Currently he is paced. Currently he is not in V. tach. When the squad brought him in he had long runs of V. tach. Repeat exam at 12:17 PM patient doing well. Sitting upright in bed. Currently is in a paced rhythm. He is not in V. tach. The defibrillator has not shocked him since has been in the emergency department. Hospitalist paged for admission. History & Record Review Discussion w/independent historian: Patient and Other (EMS) Additional record(s) reviewed:: Prior inpatient record, Prior outpatient record, Prior ED visit and Prior labs Lab Data Attestation: I reviewed the patient's lab results. Lab results narrative: CBC white count 7.8. H&H 11.9 and 36. Platelets pending. Electrolytes show sodium 137. Gap 14. BUN 25 creatinine of 1. Glucose 230. Troponin 28. Labs: Laboratory Results - last 24 hr 11/14/24 10:33 WBC 7.8 RBC 4.07 L Hgb 11.9 L Hct 36.7 L MCV 90.2 MCH 29.2 MCHC 32.4 RDW Std Deviation 45.3 H RDW Coeff of Marifer 13.8 Plt Count Immature Gran % (Auto) 0.400 Neut % (Auto) 43.6 L Lymph % (Auto) 43.8 H [place] % (Auto) 10.3 H Eos % (Auto) 1.5 Baso % (Auto) 0.4 Absolute Neuts (auto) 3.4 Absolute Lymphs (auto) 3.42 Nucleated RBC % 0 Platelet Estimate ADEQUATE Sodium 137 Potassium 3.3 Chloride 100 Carbon Dioxide 22.0 Anion Gap 14 BUN 25 H Creatinine 1.09 Estim Creat Clear Calc 74.75 Est GFR (MDRD) Non-Af 70 BUN/Creatinine Ratio 22.6 H Glucose 230 H Calcium 9.3 Troponin T High Sens 28 H D Radiography Chest X-Ray - ED: 1 View, Read by ED Physician, Read by Radiologist, Lungs, Mediastinum, Bony Structures, Chronic Changes and Cardiomegaly Diagnostic Testing: Clinical Impression(s) from Imaging Studies Chest X-Ray 11/14/24 10:37 IMPRESSION: No acute process. Bochdalek's hernia. [facility] Chronic changes. Cardiomegaly. Left-sided pacemaker defibrillator. Bochdalek hernia. Chest x-ray, portable, single view, interpreted by myself and radiologist. Rhythm Strip Rhythm Strip: Paced Rate: 96 Ectopy: None EKG Initial EKG: Attestation: I personally reviewed and interpreted this EKG as follows: Interpretation: No Acute Injury Pattern and Paced Comments: Ventricular paced rhythm rate of 96. No acute signs of IL. Discharge Plan Dx/Rx/DC Orders Clinical Impression: V tach, DM type 2 (diabetes mellitus, type 2), COPD (chronic obstructive pulmonary disease), History of cardiac defibrillator placement Disposition Disposition: Acute Care Hospital [facility]
--- NOTE | 2024-11-14 10:45 | EKG12_ITS ---
Test Reason : Blood Pressure : */* mmHG Vent. Rate : 96 BPM Atrial Rate : 96 BPM P-R Int : * ms QRS Dur : 160 ms QT Int : 430 ms P-R-T Axes : * -76 78 degrees QTcB Int : 543 ms Ventricular-paced rhythm Abnormal ECG Confirmed by DEE BLAS, MARTHA ([id number]), managing editor CAMPOS PIERCE ([id number]) on 11/17/2024 8:20:15 AM Referred By: Confirmed By: MARTHA PRICE MD
[2024-11-14 10:54] LABS: Absolute Lymphocyte Count 3.42 X10^3/uL (0.83-4.51); Absolute Neutrophil Count 3.4 X10^3/uL (2.0-7.7); Basophil# 0.03 X10^3/uL; Basophil% 0.4 % (0-1); Eosinophil# 0.12 X10^3/uL; Eosinophils% 1.5 % (0-5); Hematocrit 36.7 % (40-54); Hemoglobin 11.9 g/dL (13.0-16.5); Lymphocyte # 3.42 X10^3/ul (0.83-4.51); Lymphocyte % 43.8 % (19-41); Mean Corp Hgb Conc 32.4 g/dL (32-36); Mean Corpuscular Hgb 29.2 pg (27.0-32.0); Mean Corpuscular Volume 90.2 fL (80-94); Monocyte% 10.3 % (0-10); NRBC Flagged by Analyzer 0 % (0-5); Neutrophil % 43.6 % (47-70); POSITIVE COUNT YES; RBC Distribution Width CV 13.8 % (11.6-14.6); RBC Distribution Width SD 45.3 fl (35.1-43.9); Red Blood Count 4.07 M/mm3 (4.6-6.2); White Blood Count 7.8 K/mm3 (4.4-11.0)
--- OUTSIDE RECORDS SUMMARY | 2024-11-14 11:05 | XMS RPT_ITS | CCD ---
Author Organization [facility] Care Team Providers Care Advertising Manager Name Role Phone SAGAR GARCIA Unavailable Unavailable SAGAR GARCIA Unavailable Unavailable MARISOL TUCKER Unavailable Unavailable Dr. Jessi Olguin Primary Care Provider 1([facility])[phone] Dr. Jessi Olguin Referring Provider 1([facility])[phone] Dr. Jeremy Ovalle Attending Provider 1([facility])[phone] Kyleigh Andrade Attending Provider 1([facility])2 Dr. Kyleigh Andrade Other Provider 1([facility])- [phone] Dr. Jessi Olguin Primary Care Provider 1([facility])[phone] Dr. Jessi Olguin Referring Provider 1([facility])[phone] Albaro PREDATORY ANIMAL EXTERMINATOR, KARTHIK-José Luis Padilla Attending Provider 1([facility])[phone] Dr. Alejandro Guerrero Attending Provider 1([facility])[phone] Dr. Alejandro Guerrero Referring Provider 1([facility])[phone] Dr. Alejandro Guerrero Other Provider 1([facility])[phone] Jessi Olguin Primary Care Provider 1([facility])[phone] Dr. Kyleigh Andrade Attending Provider 1([facility])2 Dr. Kyleigh Andrade Other Provider 1([facility])[phone] Dr. Jessi Olguin Referring Provider 1([facility])[phone] Dwayne PREDATORY ANIMAL EXTERMINATOR, PREDATORY ANIMAL EXTERMINATOR-C Mey Attending Provider Dr. Jessi Olguin Primary Care Provider [phone] Jessi Olguin Referring Provider 1([facility])[phone] Judson Isabel Attending Provider 1([facility])[phone] Dwayne PREDATORY ANIMAL EXTERMINATOR, PREDATORY ANIMAL EXTERMINATOR-C Mey Attending Provider Dr. Jessi Olguin Primary Care Provider [phone] Jessi Olguin Referring Provider Dwayne PREDATORY ANIMAL EXTERMINATOR, PREDATORY ANIMAL EXTERMINATOR-C Mey Attending Provider Dr. Jessi Olguin Primary Care Provider [phone] Jessi Olguin Referring Provider Ryan ANGELES, PREDATORY ANIMAL EXTERMINATOR-C Danni Attending Provider Dr. Jessi Olguin Primary Care Provider [phone] Jessi Olguin Referring Provider Ryan ANGELES, PREDATORY ANIMAL EXTERMINATOR-C Danni Attending Provider CATHERINE BLAS, DR SEDRICK Ordonez Attending Unavailable ISRAEL BLAS, ELBA Ness Consulting Unavailable CATHERINE BLAS, DR SEDRICK Ordonez Admitting Unavailable ALEXANDER BLAS, DR ESAN Ness Consulting Unavailable TRUDI BLAS, PITER Consulting Unavailable UJDY BLAS, DHIRAJ Costello Consulting Unavailable Sharif BLAS, Dr. Castorena Primary Care Provider Ruthy LOPEZ, Dr. Garcia Attending Provider Ruthy LOPEZ, Dr. Garcia Emergency Provider Wiley LOPEZ, Dr. Ewing Emergency Provider Natasha LOPEZ, Dr. Castorena Admit Provider Dr. Jessi Kaur DO Attending Provider Kathy BLAS, Dr. Fagan Other Provider Dr. Jessi Kaur DO Other Provider Kathy BLAS, Dr. Fagan Attending Provider Dr. Dhiraj Carlton DO Attending Provider Dr. Dhiraj Carlton DO Emergency Provider Ryan ANGELES-CDanni Attending Provider Ryan ANGELES-CDanni Referring Provider Ezequiel Zimmer Attending Provider Unavailable Sharif BLAS, Dr. Castorena Referring Provider [phone] Dwayne ANGELES-CMey Attending Provider Sanaz Schwartz Attending Provider Elil LOPEZ, Dr. Castorena Emergency Provider Alek BLAS, Dr. Shonda Bar Admit Provider Alek BLAS, Dr. Shonda Bar Attending Provider Alek BLAS, Dr. Shonda Bar Other Provider Irais BLAS, Dr. Muir Attending Provider Luis Braxton MD, Dr. Muir Other Provider Unavailable Sharif BLAS, Dr. Castorena Attending Provider Sharif BLAS, Dr. Castorena Primary Care Provider Dr. Kaylin Jama DO Emergency Provider Natasha LOPEZ, Dr. Castorena Admit Provider Dr. Jessi Kaur DO Attending Provider Kathy BLAS, Dr. Fagan Other Provider Natasha LOPEZ, Dr. Castorena Other Provider Kathy BLAS, Dr. Fagan Attending Provider Dr. Dhiraj Carlton DO Attending Provider Dr. Dhiraj Carlton DO Emergency Provider Ryan ANGELES-Danni Ordonez Attending Provider Ryan PREDATORY ANIMAL EXTERMINATOR-CDanni Referring Provider Ezequiel Zimmer Attending Provider Unavailable Sharif BLAS, Dr. Castorena Referring Provider [phone] Dwayne ANGELES-CMey Attending Provider Sanaz Schwartz Attending Provider Elli LOPEZ, Dr. Castorena Emergency Provider Alek BLAS, Dr. Shonda Bar Admit Provider Alek BLAS, Dr. Shonda Bar Other Provider Irais BLAS, Dr. Muir Attending Provider Luis Braxton MD, Dr. Muir Other Provider Unavailable Sharif BLAS, Dr. Castorena Attending Provider [phone] Isma BLAS, Dr. Vega Attending Provider [phone] Isma BLAS, Dr. Vega Referring Provider Isma BLAS, Dr. Vega Emergency Provider Sharif BLAS, Dr. Castorena Primary Care Provider Isma BLAS, Dr. Vega Attending Provider Isma BLAS, Dr. Vega Referring Provider Isma BLAS, Dr. Vega Emergency Provider Santos ANGELES-C, Michelle Jimenez Attending Provider Olguin, Jessi Referring Unavailable Mey Rice Attending Unavailable Olguin, Jessi Primary Care Unavailable Olguin, Jessi Referring Unavailable Olguin, Jessi Primary Care Unavailable Olguin, Jessi Attending Unavailable Olguin, Jessi Primary Care Unavailable Jose Bliss Attending Unavailabl e Olguin, Jessi Primary Care Unavailable Olguin, Jessi Attending Unavailable Olguin, Jessi Referring Unavailable Danni Davis NP Attending Unavailable Olguin, Jessi Primary Care Unavailable Olguin, Jessi Primary Care Unavailable Olguin, Jessi Referring Unavailable Mey Rice Attending Unavailable Olguin, Jessi Primary Care Unavailable JulianojoRell almeidaapradee Attending Unavailabl e Olguin, Jessi Primary Care Unavailable Nagajothi, Nagapradee Attending Unavailabl e Olguin, Jessi Primary Care Unavailable Jopperi, Jessi Consulting Unavailable Jopperi, Jessi Attending Unavailable Jopperi, Jessi Admitting Unavailable Olguin, Jessi Primary Care Unavailable Jose Bliss Attending Unavailabl e Olguin, Jessi Primary Care Unavailable Jopperi, Jessi Attending Unavailable Jopperi, Jessi Admitting Unavailable Nagajothi, Nagapradee Consulting Unavailabl e Shonda Gaston Admitting Unavailable Shonda Gaston Consulting Unavailable Wood Braxton Attending Unavailable Olguin, Jessi Primary Care Unavailable Ezequiel Zimmer Attending Unavailable Olguin, Jessi Primary Care Unavailable White, Shonda L Consulting Unavailable Shonda Gaston L Admitting Unavailable Wood Braxton Attending Unavailable Olguin, Jessi Primary Care Unavailable Wood Braxton Consulting Unavailable Rellajothi, Nagapradee Consulting Unavailabl e Rellajothi, Nagapradee Attending Unavailbrittani hamlin Olguin, Jessi Primary Care Unavailable Dhiraj Carlton Attending Unavailable Gary Ashby Attending Unavailable Gary Ashby Referring Unavailable Olguin, Jessi Primary Care Unavailable Ryan PREDATORY ANIMAL EXTERMINATOR, Danni Attending Unavailable Ryan PREDATORY ANIMAL EXTERMINATOR, Danni Referring Unavailable Olguin, Jessi Primary Care Unavailable Alejandro Talbot Attending Unavailable Olguin, Jessi Referring Unavailable Olguin, Jessi Primary Care Unavailable Shonda Gaston Attending Unavailable Michelle Graham Attending Unavailable Olguin, Jessi Primary Care Unavailable Olguin, Jessi Referring Unavailable Olguin, Jessi Primary Care Unavailable Olguin, Jessi Attending Unavailable Olguin, Jessi Referring Unavailable Olguin, Jessi Referring Unavailable Sanaz Schwartz Attending Unavail able Olguin, Jessi Primary Care Unavailable Olguin, Jessi Referring Unavailable Sanaz Schwartz Attending Unavail able Olguin, Jessi Primary Care Unavailable Allergies Allergy Classification Reported Allergen(s) Allergy Type Date of Onset Reaction(s) Facility (4 sources) Shellfish; Translations: [shellfish derived] Allergy to substance 2 [facility] (1 source) Shellfish Food allergy Weal (disorder) [facility] Medications Current Medications Medication Drug Class(es) Dates Sig (Normalized) Sig (Original) acetaminophen 500 mg oral tablet (4 sources) Start: 08-03-2024 take 2 tablets by mouth every eight hours as needed for pain Acetaminophen 500 mg tablet Active 1000 mg PO Q8H as needed for pain August 03, 2024 1:00am acetylcysteine 600 mg oral capsule (2 sources) Antidote, Mucolytic, Antidote for Acetaminophen Overdose Start: 09-21-2024 take 1 capsule by mouth twice daily Acetylcysteine 600 mg capsule Active 600 mg PO TWICE A DAY September 21, 2024 12:00am ascorbic acid 500 mg oral tablet (2 sources) Vitamin C Start: 09-21-2024 take 1 tablet by mouth once daily Ascorbic Acid (Vitamin C) 500 mg tablet Active 500 mg PO DAILY September 21, 2024 12:00am busPIRone hydrochloride 7.5 mg oral tablet (4 sources) Start: 08-03-2024 take 1 tablet by mouth twice daily Buspirone 7.5 mg tablet Active 7.5 mg PO TWICE A DAY August 03, 2024 1:00am cholecalciferol 0.025 mg oral tablet (20 sources) Vitamin D Start: 09-21-2024 take 1 tablet by mouth once daily Cholecalciferol (Vitamin D3) (Vitamin D3) 25 mcg (1,000 unit) tablet Active 25 ug PO DAILY September 21, 2024 12:00am Start: 08-03-2024 End: 09-21-2024 take 1 tablet by mouth once daily Cholecalciferol (Vitamin D3) 100 mcg (4,000 unit) tablet Discontinued 100 ug PO DAILY August 03, 2024 1:00am September 21, 2024 3:16pm Start: 01-02-2022 End: 08-03-2024 take 1 capsule by mouth once daily Cholecalciferol (Vitamin D3) (Vitamin D3) 25 mcg (1,000 unit) Capsule Discontinued 25 ug PO DAILY January 02, 2022 12:00am August 03, 2024 9:19am Start: 09-18-2018 End: 05-16-2021 take 1 tablet by mouth once daily Cholecalciferol (Vitamin D3) 1,000 UNIT tablet Discontinued 1000 U PO DAILY September 18, 2018 12:00am May 16, 2021 11:13am ferrous sulfate 325 mg delay ed release oral tablet (20 sources) Start: 06-27-2024 ferrous sulfat e 325 mg (65 mg elemental iron) oral delayed release tablet Dose : 325 mg = 1 tab(s), Oral, qDay, # 30 tab(s), 0 Refill(s) Start Date: 06/27/24 Status: Ordered Quantity: 30.0 Unit: tab(s) Repeat number: 1 Start: 01-02-2022 take 1 tablet by maris once daily Ferrous Sulfate 325 mg (65 mg iron) Tablet Active 325 mg PO DAILY January 02, 2022 12:00am Start: 08-14-2020 End: 10-05-2021 take 1 tablet by mouth twice daily Ferrous Sulfate 325 MG tablet Discontinued 325 mg PO TWICE A DAY August 14, 2020 1:00am October 05, 2021 1:40pm Start: 08-14-2020 End: 10-05-2021 furosemide 40 mg oral tablet (20 sources) Loop Diuretic Start: 09-03-2024 take 1 tablet by mouth once daily Furosemide (Lasix) 40 mg tablet Active 40 mg PO DAILY 60 September 03, 2024 12:00am Start: 03-13-2023 End: 08-03-2024 take 1 tablet by mouth two times weekly Furosemide 40 mg tablet Discontinued 40 mg PO .twice weekly March 13, 2023 10:10am August 03, 2024 9:26am On Hold: MD Latif Start: 03-13-2023 End: 03-13-2023 Furosemide 40 mg tablet Disc ontinued 20 mg PO .twice weekly March 13, 2023 10:09am March 13, 2023 10:10am Start: 03-13-2023 End: 03-13-2023 take 20 mg by mouth two times weekly Furosemide Discontinued 20 MG PO .twice weekly March 13, 2023 10:09am March 13, 2023 10:10am Start: 12-13-2022 End: 03-13-2023 Furosemide 40 mg tablet Disc ontinued 20 mg PO every other day December 13, 2022 9:47am March 13, 2023 10:10am Start: 12-13-2022 End: 03-13-2023 take 20 mg by mouth every other day Furosemide Discontinued 20 MG PO every other day December 13, 2022 9:47am March 13, 2023 10:10am Start: 05-16-2021 End: 12-13-2022 Furosemide 40 mg tablet Disc ontinued 20 mg PO DAILY May 16, 2021 1:00am December 13, 2022 9:47am Start: 05-16-2021 End: 08-03-2024 Start: 05-16-2021 End: 12-13-2022 take 20 mg by mouth once daily Furosemide Discontinued 20 MG PO DAILY May 16, 2021 1:00am December 13, 2022 9:47am Start: 03-02-2020 End: 05-16-2021 Start: 03-02-2020 End: 03-02-2020 take 1 tablet by mouth once daily Furosemide 20 mg tablet Discontinued 20 mg PO DAILY March 02, 2020 12:00am March 02, 2020 1:21pm Start: 03-02-2020 End: 05-16-2021 take 2 tablets by mouth once daily Furosemide 20 mg tablet Discontinued 40 mg PO DAILY March 02, 2020 1:19pm May 16, 2021 11:13am hydrOXYzine pamoate 50 mg oral capsule (8 sources) Antihistamine Start: 08-03-2024 take 1 capsule by mouth twice daily Hydroxyzine Pamoate 50 mg capsule Active 50 mg PO TWICE A DAY August 03, 2024 1:00am Start: 08-03-2024 End: 09-01-2024 take 1 capsule by mouth every eight hours as needed Hydroxyzine Pamoate (Vistaril) 25 mg capsule Discontinued 25 mg PO Q8H as needed August 03, 2024 1:00am September 01, 2024 8:12am 3 ml insulin glargine 100 unt/ml pen injector (20 sources) Insulin Analog Start: 09-21-2024 Insulin Glargi ne (Lantus Solostar U-100 Insulin) 100 unit/mL (3 mL) insulin pen Active 10 U SC DAILY September 21, 2024 12:00am Start: 09-21-2024 Start: 06-27-2024 inject 0.1 mL by sub cutaneous injection once daily in the morning Lantus 100 units/mL10 ml vial solution Dose : 10 unit(s) = 0.1 mL, Subcutaneous, qAM, # 10 mL, 0 Refill(s) Start Date: 06/27/24 Status: Ordered Quantity: 10.0 Unit: mL Repeat number: 1 Start: 10-05-2021 Insulin Glargi ne (Lantus U-100 Insulin) 100 unit/mL Solution Active 16 UNIT SC TWICE A DAY October 05, 2021 1:40pm Start: 07-25-2021 End: 10-05-2021 Insulin Glargine 100 unit/mL (3 mL) insulin pen Discontinued 16 U SC AT BEDTIME July 25, 2021 10:39am October 05, 2021 1:41pm Start: 08-14-2020 End: 07-25-2021 Insulin Glargine 100 UNITS/M L insulin pen Discontinued 10 U SC AT BEDTIME August 14, 2020 1:00am July 25, 2021 10:39am Start: 08-14-2020 End: 07-25-2021 Insulin Glargine Discontinue d 10 UNITS SC AT BEDTIME August 14, 2020 1:00am July 25, 2021 10:39am Start: 03-02-2020 End: 08-15-2020 Insulin Glargine 100 unit/mL (3 mL) insulin pen Discontinued 50 U SC DAILY March 02, 2020 12:10pm August 15, 2020 10:24am Start: 09-16-2018 End: 02-16-2020 Insulin Glargine (Lantus Amrita ostar U-100 Insulin) 100 UNIT/ML Insuln.Pen Discontinued 40 U SQ DAILY September 16, 2018 12:00am February 16, 2020 8:51am Start: 09-16-2018 End: 10-05-2021 inject 50 [IU] by subcutaneous injection twice daily Insulin Glargine 100 UNIT/ML insulin pen Discontinued 50 U SQ TWICE A DAY 1 February 16, 2020 8:51am March 02, 2020 12:12pm Start: 09-16-2018 End: 02-16-2020 Insulin Glargine (Lantus Amrita ostar U-100 Insulin) 100 UNIT/ML Insuln.Pen Discontinued 40 U SQ AT BEDTIME September 16, 2018 12:00am February 16, 2020 8:50am 3 ml insulin lispro 100 unt/ml pen injector (20 sources) Insulin Analog Start: 06-27-2024 inject 1 dose by subcutaneous injection twice daily Mitchell Ren 200 units/mL subcutaneous solution Dose : 12 unit(s) =, INJECT 12 units twice daily under the skin as directed with meal Start Date: 06/27/24 Status: Ordered Repeat number: 1 Start: 09-10-2022 End: 08-03-2024 Insulin Lispro (Humalog Kwik pen Insulin) 100 unit/mL insulin pen Active 12 U SC TWICE DAILY BEFORE MEALS August 03, 2024 9:21am Start: 11-14-2021 End: 09-10-2022 Insulin Lispro (Humalog Kwik pen Insulin) 100 unit/mL insulin pen Discontinued 20 U SC TWICE A DAY November 14, 2021 10:00am September 10, 2022 10:53am Start: 10-05-2021 End: 11-14-2021 Insulin Lispro (Humalog Pen) 100 unit/mL Insulin Pen Discontinued 20 U SC THREE TIMES A DAY October 05, 2021 12:00am November 14, 2021 10:01am Start: 02-16-2020 End: 08-03-2024 Insulin Lispro 100 UNIT/ML insulin pen Discontinued 0 U SC BEFORE MEALS AND AT BEDTIME August 15, 2020 12:00am October 05, 2021 1:41pm Please contact the information source for Protocol details. Start: 09-16-2018 End: 02-16-2020 Insulin Lispro (Humalog Kwik pen Insulin) 100 UNIT/ML Ml Discontinued 24 U SQ DAILY September 16, 2018 12:00am February 16, 2020 8:51am Start: 09-16-2018 End: 10-05-2021 inject 26 [IU] by subcutaneous injection twice daily at mealtime Insulin Lispro 100 UNIT/ML insulin pen Discontinued 26 U SQ TWICE DAILY WITH MEALS August 14, 2020 2:34pm August 15, 2020 10:24am Start: 09-16-2018 End: 02-16-2020 Insulin Lispro (Humalog Kwik pen Insulin) 100 UNIT/ML Insuln.Pen Discontinued 24 U SQ WITH DINNER September 16, 2018 12:00am February 16, 2020 8:46am Start: 10-30-2015 End: 08-01-2017 inject 10 [IU] by subcutaneous injection three times daily Insulin Lispro 100 UNIT/ML solution Discontinued 10 U SQ THREE TIMES A DAY October 30, 2015 12:00am August 01, 2017 9:27am levothyroxine sodium 0.175 mg oral tablet (20 sources) l-Thyroxine Start: 09-01-2024 take 1 tablet by mouth once daily Levothyroxine 175 mcg tablet Active 175 ug PO DAILY September 01, 2024 12:00am Start: 06-27-2024 levothyroxine 150 mcg (0.15 mg) oral tablet Dose : 150 mcg = 1 tab(s), Oral, qDayAC, 0 Refill(s) Start Date: 06/27/24 Status: Ordered Repeat number: 1 Start: 11-14-2021 End: 09-01-2024 take 1 tablet by mouth once daily Levothyroxine 150 mcg tablet Discontinued 150 ug PO DAILY November 14, 2021 12:00am September 01, 2024 8:10am Start: 07-25-2021 End: 11-14-2021 take 1 capsule by mouth once daily Levothyroxine 150 mcg capsule Discontinued 150 ug PO DAILY July 25, 2021 1:00am November 14, 2021 10:00am Start: 07-30-2014 End: 07-25-2021 take 1 tablet by mouth once daily Levothyroxine 175 MCG tablet Discontinued 175 ug PO DAILY July 30, 2014 1:00am July 25, 2021 10:39am lisinopril 5 mg oral tablet (20 sources) Angiotensin Converting Enzyme Inhibitor Start: 08-03-2024 take 1 tablet by mouth once daily Lisinopril 5 mg tablet Active 5 mg PO DAILY August 03, 2024 1:00am On Hold: low bp Start: 02-16-2020 End: 05-16-2021 take 1 tablet by mouth once daily Lisinopril 5 mg tablet Discontinued 5 mg PO DAILY March 02, 2020 1:20pm May 16, 2021 11:12am metFORMIN hydrochloride 500 mg oral tablet (20 sources) Biguanide Start: 06-27-2024 take 2 tablets by mouth once daily MetFORMIN (Eqv-Glucophage XR) 500 mg oral tablet, EXTENDED RELEASE TAKE 2 TABLETS BY MOUTH EVERY DAY Start Date: 06/27/24 Status: Ordered Repeat number: 1 Start: 03-02-2020 Metformin 500 mg tablet extended release 24 hr Active 1000 mg PO DAILY March 02, 2020 12:00am Start: 03-02-2020 take 1000 mg by mout h once daily Metformin Active 1000 MG PO DAILY March 02, 2020 12:00am Start: 09-16-2018 End: 02-16-2020 Metformin 500 MG tablet Disc ontinued 1000 mg PO 1600 September 16, 2018 12:00am February 16, 2020 8:44am Start: 09-16-2018 End: 02-16-2020 Start: 09-16-2018 End: 02-16-2020 Metformin Discontinued 1000 MG PO 1600 September 16, 2018 12:00am February 16, 2020 8:44am PEP device (20 sources) Start: 11-14-2021 PEP device Act juan 0 .Route .MEDSUPPLY November 14, 2021 9:01am with training Start: 11-14-2021 PEP device Act juan 0 .Route .MEDSUPPLY November 14, 2021 10:01am with training Start: 06-20-2020 PEP device Act juan 0 .Route .MEDSUPPLY June 20, 2020 12:22pm with training Start: 06-20-2020 End: 11-14-2021 PEP device Discontinued 0 .R oute .MEDSUPPLY June 20, 2020 12:00am November 14, 2021 9:01am with training Start: 06-20-2020 End: 11-14-2021 PEP device Discontinued 0 .R oute .MEDSUPPLY June 20, 2020 1:00am November 14, 2021 10:01am with training ramipril 2.5 mg oral capsule (1 source) Angiotensin Converting Enzyme Inhibitor Start: 07-01-2024 ramipril 2.5 mg oral capsule Dose : 2.5 mg = 1 cap(s), Oral, qDay, # 30 cap(s), 3 Refill(s), Pharmacy: [id number], 190, cm, 06/27/24 12:50:00 EST, Height, kg, 06/27/24 12:50:00 EST, Dosing Weight Start Date: 07/01/24 Status: Ordered Quantity: 30.0 Unit: cap(s) Repeat number: 4 Valproate (20 sources) Mood Stabilizer, Anti-epileptic Agent Start: 10-05-2021 take 75 mg by mouth three times daily Depakote Active 75 MG SL/PO THREE TIMES A DAY October 05, 2021 1:40pm Start: 10-05-2021 End: 11-14-2021 take 75 mg by mouth three times daily Depakote Discontinued 75 mg SL/PO THREE TIMES A DAY October 05, 2021 12:00am November 14, 2021 9:56am Start: 10-05-2021 End: 11-14-2021 take 75 mg by mouth three times daily Depakote Discontinued 75 MG SL/PO THREE TIMES A DAY October 04, 2021 11:00pm November 14, 2021 8:56am Start: 10-05-2021 End: 11-14-2021 take 75 mg by mouth three times daily Depakote Discontinued 75 MG SL/PO THREE TIMES A DAY October 05, 2021 12:00am November 14, 2021 9:56am Start: 07-25-2021 End: 10-05-2021 take 1 tablet by mouth twice daily Divalproex (Depakote) 250 mg tablet,delayed release (DR/EC) Discontinued 250 mg PO TWICE A DAY July 25, 2021 1:00am October 05, 2021 1:40pm 24 hr venlafaxine 75 mg extended release oral capsule (20 sources) Serotonin and Norepinephrine Reuptake Inhibitor Start: 09-01-2024 take 1 capsule by mouth once daily Venlafaxine 75 mg capsule,extended release 24hr Active 75 mg PO DAILY September 01, 2024 12:00am Start: 06-24-2024 End: 09-01-2024 take 1 tablet by mouth once daily Venlafaxine 225 mg tablet extended release 24hr Discontinued 225 mg PO DAILY June 24, 2024 1:00am September 01, 2024 8:08am Start: 07-09-2023 take 225 mg by mouth once daily in the morning Venlafaxine Active 225 MG PO EVERY MORNING July 09, 2023 9:42am Start: 11-14-2021 End: 06-24-2024 take 1 capsule by mouth once daily in the morning Venlafaxine 75 mg capsule,extended release 24hr Discontinued 225 mg PO EVERY MORNING July 09, 2023 9:42am June 24, 2024 12:10pm Start: 11-14-2021 End: 07-09-2023 take 150 mg by mouth once daily in the morning Venlafaxine Discontinued 150 MG PO EVERY MORNING November 14, 2021 12:00am July 09, 2023 9:42am Start: 11-14-2021 take 225 mg by mouth once daily in the morning Venlafaxine Active 225 MG PO EVERY MORNING November 13, 2021 11:00pm Start: 07-25-2021 End: 11-14-2021 take 1 tablet by mouth once daily in the morning Venlafaxine 225 mg tablet extended release 24hr Discontinued 225 mg PO EVERY MORNING July 25, 2021 1:00am November 14, 2021 9:57am Start: 09-16-2018 End: 03-02-2020 take 1 tablet by mouth once daily Venlafaxine 75 MG tablet Discontinued 75 mg PO DAILY September 16, 2018 12:00am March 02, 2020 12:12pm Vitamin D3 (1 source) Start: 06-27-2024 Vitamin D3 Dos e : 100 mcg = 1 tab(s), Oral, Daily, 0 Refill(s) Start Date: 06/27/24 Status: Ordered Repeat number: 1 Completed/Discontinued Medications Medication Drug Class(es) Dates Sig (Normalized) Sig (Original) Acapella (19 sources) Start: 03-14-2020 End: 06-20-2020 Acapella Discontinued 1 March 14, 2020 11:56am June 20, 2020 12:21pm As directed Start: 03-14-2020 End: 06-20-2020 Acapella Discontinued 1 2019 11:00pm June 20, 2020 11:21am As directed Start: 03-14-2020 End: 06-20-2020 Acapella Discontinued 1 2019 12:00am June 20, 2020 12:21pm As directed acetaminophen 325 mg / oxyCODONE hydrochloride 5 mg oral tablet (20 sources) Opioid Agonist Start: 09-11-2018 End: 09-14-2018 Oxycodone-Acetaminophen 1 TABLET tablet Discontinued 1 {tbl} PO EVERY 6 HOURS NEEDED as needed for Pain 8 September 11, 2018 12:00am September 13, 2018 12:00am September 14, 2018 12:10am Start: 09-11-2018 End: 09-14-2018 Start: 09-11-2018 End: 09-14-2018 take 1 tablet by mouth every six hours as needed Oxycodone-Acetaminophen Discontinued 1 TABLET PO EVERY 6 HOURS NEEDED 8 September 11, 2018 12:00am September 14, 2018 12:10am [id number] 200 actuat albuterol 0.09 mg/actuat metered dose inhaler (20 sources) beta2-Adrenergic Agonist Start: 09-10-2022 End: 08-03-2024 Albuterol Sulfate 90 mcg/actuation HFA aerosol inhaler Discontinued 2 NMA INHALATION EVERY 6 HOURS as needed for shortness of breath or wheezing 8.September 10, 2022 12:00am August 03, 2024 9:26am Start: 09-10-2022 End: 08-03-2024 Start: 09-10-2022 take 1 puff(s) by in halation every six hours Albuterol Sulfate Active 2 PUFF INHALATION EVERY 6 HOURS 8.September 10, 2022 12:00am Start: 08-16-2019 End: 05-16-2021 Albuterol Sulfate 1 INHALER inhaler Discontinued 1 - 2 NMA INHALATION EVERY 4 HOURS NEEDED as needed for Wheezing August 16, 2019 12:00am May 16, 2021 11:12am Start: 08-16-2019 End: 05-16-2021 Start: 08-16-2019 End: 05-16-2021 take 1 puff(s) by inhalation every four hours as needed Albuterol Sulfate Discontinued 1 - 2 PUFF INHALATION EVERY 4 HOURS NEEDED August 16, 2019 12:00am May 16, 2021 11:12am amylase [id number] unt / lipase [id number] unt / protease [id number] unt delayed release oral capsule (20 sources) Start: 08-14-2020 End: 05-16-2021 Rcklkl-Qzxvceyw-Rmdkboq 1 EA CH capsule,delayed release(DR/EC) Discontinued 1 NMA PO THREE TIMES A DAY August 14, 2020 1:00am May 16, 2021 11:12am Start: 08-14-2020 End: 05-16-2021 Start: 08-14-2020 End: 05-16-2021 Oijjuw-Gdsbqheh-Saczwge Disc ontinued 1 EACH PO THREE TIMES A DAY August 14, 2020 1:00am May 16, 2021 11:12am atorvastatin 40 mg oral tablet (12 sources) HMG-CoA Reductase Inhibitor Start: 08-03-2024 End: 09-01-2024 take 1 tablet by mouth once daily Atorvastatin 40 mg tablet Discontinued 40 mg PO daily September 01, 2024 8:39am September 01, 2024 6:35pm azithromycin 500 mg oral tablet (4 sources) Macrolide Antimicrobial Start: 09-03-2024 End: 09-21-2024 take 1 tablet by mouth once daily Azithromycin 500 mg tablet Discontinued 500 mg PO DAILY 3 September 03, 2024 12:00am September 21, 2024 3:15pm Start: 09-01-2024 take 1 tablet by maris th once daily Azithromycin 250 mg tablet Active 250 mg PO DAILY September 01, 2024 12:00am calcium carbonate 1500 mg oral tablet (20 sources) Start: 08-14-2020 End: 05-16-2021 take 1 tablet by mouth at bedtime Calcium Carbonate 600 MG tablet Discontinued 600 mg PO AT BEDTIME August 14, 2020 1:00am May 16, 2021 11:12am Start: 08-14-2020 End: 05-16-2021 cefdinir 300 mg oral capsule (3 sources) Cephalosporin Antibacterial Start: 09-03-2024 End: 09-21-2024 take 1 capsule by mouth twice daily Cefdinir 300 mg capsule Discontinued 300 mg PO TWICE A DAY 14 September 03, 2024 12:00am September 21, 2024 3:15pm cephalexin 500 mg oral capsule (17 sources) Cephalosporin Antibacterial Start: 12-14-2021 End: 12-29-2021 take 1 capsule by mouth four times daily Cephalexin 500 mg Capsule Discontinued 500 mg PO 4 TIMES DAILY December 14, 2021 12:00am December 29, 2021 1:52pm citalopram 20 mg oral tablet (20 sources) Serotonin Reuptake Inhibitor Start: 07-30-2014 End: 08-01-2017 take 1 tablet by mouth once daily Citalopram 20 MG tablet Discontinued 20 mg PO DAILY July 30, 2014 1:00am August 01, 2017 9:27am clopidogrel 75 mg oral tablet (13 sources) [id number] Platelet Inhibitor Start: 08-03-2024 End: 09-01-2024 take 1 tablet by mouth once daily Clopidogrel 75 mg tablet Discontinued 75 mg PO daily September 01, 2024 8:39am September 01, 2024 6:35pm Start: 07-01-2024 Plavix 75 mg o ral tablet Dose : 75 mg = 1 tab(s), Oral, qDay, # 30 tab(s), 3 Refill(s), Pharmacy: [id number], 190, cm, 06/27/24 12:50:00 EST, Height, kg, 06/27/24 12:50:00 EST, Dosing Weight Start Date: 07/01/24 Status: Ordered Quantity: 30.0 Unit: tab(s) Repeat number: 4 DULoxetine 60 mg delayed release oral capsule (20 sources) Serotonin and Norepinephrine Reuptake Inhibitor Start: 09-12-2020 End: 05-16-2021 Start: 08-14-2020 End: 09-12-2020 take 1 capsule by mouth once daily Duloxetine 60 MG capsule Discontinued 60 mg PO DAILY August 14, 2020 1:00am September 12, 2020 10:39am Start: 08-14-2020 End: 05-16-2021 Duloxetine 60 mg capsule,del ayed release(DR/EC) Discontinued 90 mg PO DAILY September 12, 2020 10:38am May 16, 2021 11:13am 12 hr guaiFENesin 600 mg extended release oral tablet (20 sources) Start: 09-03-2024 End: 09-21-2024 take 2 tablets by mouth twice daily, then take 1 tablet by mouth every twelve hours Guaifenesin (Mucinex) 600 mg tablet extended release 12hr Discontinued 1200 mg PO TWICE A DAY 40 10 September 03, 2024 12:00am September 21, 2024 3:16pm Start: 07-25-2021 End: 10-05-2021 take 1 tablet by mouth every twelve hours, then take 1 tablet by mouth every twelve hours Guaifenesin (Mucinex) 1,200 mg tablet extended release 12hr Discontinued 1200 mg PO Q12H 60 July 25, 2021 1:00am October 05, 2021 1:41pm 3 ml insulin detemir 100 unt/ml pen injector (20 sources) Insulin Analog Start: 05-05-2015 End: 08-01-2017 Insulin Detemir U-100 100 UNITS/ML insulin pen Discontinued 30 U SC TWICE A DAY May 05, 2015 1:00am August 01, 2017 9:27am Start: 05-05-2015 End: 08-01-2017 Start: 05-05-2015 End: 08-01-2017 Insulin Detemir U-100 Discon tinued 30 UNITS SC TWICE A DAY May 05, 2015 1:00am August 01, 2017 9:27am Insulin Glargine (Lantus U-1 00 Insulin) 100 unit/mL Solution (16 sources) Start: 10-05-2021 End: 09-21-2024 Insulin Glargine (Lantus U-1 00 Insulin) 100 unit/mL Solution Discontinued 10 U SC 08October 05, 2021 12:00am September 21, 2024 2:37pm Start: 10-05-2021 Insulin Glargi ne (Lantus U-100 Insulin) 100 unit/mL Solution Active 10 U SC 0800 October 05, 2021 12:00am Start: 10-05-2021 Insulin Glargi ne (Lantus U-100 Insulin) 100 unit/mL Solution Active 10 UNIT SC 08October 04, 2021 11:00pm Start: 10-05-2021 Insulin Glargi ne (Lantus U-100 Insulin) 100 unit/mL Solution Active 10 UNIT SC 0800 October 05, 2021 12:00am ipratropium bromide 0.042 mg/actuat metered dose nasal spray (1 source) Anticholinergic Start: 06-27-2024 ipratropium 42 mcg/inh (0.06%) nasal spray 84 mcg Dose = 2 spray(s), use 1 to 2 (TWO) spays in the nose three times daily prior to meals to prevent nasal running OR prior to bed Start Date: 06/27/24 Status: Ordered Repeat number: 1 melatonin 3 mg oral capsule (4 sources) Start: 08-03-2024 End: 09-01-2024 take 1 capsule by mouth at bedtime Melatonin 3 mg capsule Discontinued 3 mg PO BEDTIME August 03, 2024 1:00am September 01, 2024 8:13am Start: 08-03-2024 End: 09-01-2024 24 hr metoprolol succinate 25 mg extended release oral tablet (20 sources) beta-Adrenergic Nayana Start: 08-03-2024 End: 09-01-2024 take 1 tablet by mouth once daily Metoprolol Succinate 25 mg tablet extended release 24 hr Discontinued 25 mg PO daily 90 September 01, 2024 8:40am September 01, 2024 6:35pm Start: 07-01-2024 Toprol-XL 25 m g oral tablet, extended release Dose : 25 mg = 1 tab(s), Oral, qDayM, # 30 tab(s), 3 Refill(s), Pharmacy: [facility] #30, 190, cm, 06/27/24 12:50:00 EST, Height, kg, 06/27/24 12:50:00 EST, Dosing Weight Start Date: 07/01/24 Status: Ordered Quantity: 30.0 Unit: tab(s) Repeat number: 4 Start: 07-01-2024 End: 07-01-2024 take 1 tablet by mouth in the morning Toprol-XL Start: 07/01/24 8:00:00 AM EST, Dose = 25 mg, = 1 tab(s), Oral, give with food/meal, 0, 06/30/24 11:27:00 EST Start Date: 07/01/24 Stop Date: 07/01/24 Status: Completed Repeat number: 1 Start: 06-30-2024 End: 06-30-2024 take 1 tablet by mouth in the morning Toprol-XL Start: 06/30/24 11:27:00 AM EST, Dose = 25 mg, = 1 tab(s), Oral, give with food/meal, 06/30/24 11:27:00 EST Start Date: 06/30/24 Stop Date: 06/30/24 Status: Completed Repeat number: 1 Start: 06-29-2024 End: 06-29-2024 take 1 tablet by mouth in the evening Toprol-XL Start: 06/29/24 2:45:00 PM EST, Dose = 12.5 mg, = 0.5 tab(s), Oral, Once, Stop: 06/29/24 4:15:10 PM EST, 0, 06/29/24 14:37:00 EST Notes: Do not crush or chew (controlled release).Take with food. Start Date: 06/29/24 Stop Date: 06/29/24 Status: Completed Repeat number: 1 Start: 02-16-2020 End: 08-15-2020 take 1 tablet by mouth twice daily Metoprolol Tartrate 25 mg tablet Discontinued 25 mg PO TWICE A DAY 180 March 02, 2020 1:20pm August 15, 2020 10:22am Multivitamin tablet (3 sources) Start: 08-03-2024 End: 09-21-2024 Multivitamin tablet Disconti nued 1 {tbl} PO DAILY August 03, 2024 1:00am September 21, 2024 3:18pm Start: 08-03-2024 Multivitamin t ablet Active 1 {tbl} PO DAILY August 03, 2024 1:00am oxyCODONE hydrochloride 5 mg oral tablet (20 sources) Opioid Agonist Start: 09-17-2018 End: 09-24-2018 take 5-10 mg by mouth every six hours as needed for pain Oxycodone 5 MG tablet Discontinued 5 - 10 mg PO EVERY 6 HOURS NEEDED as needed for Pain 30 7 September 17, 2018 4:47pm September 23, 2018 12:00am September 24, 2018 12:10am polyethylene glycol 3350 37121 mg powder for oral solution (4 sources) Osmotic Laxative Start: 08-03-2024 End: 04-01-2025 Polyethylene Glycol 3350 (Miralax) 17 gram/dose powder Discontinued 17 g PO daily August 03, 2024 1:00am September 01, 2024 8:13am pravastatin sodium 40 mg oral tablet (20 sources) HMG-CoA Reductase Inhibitor Start: 07-30-2014 End: 08-03-2024 take 1 tablet by mouth at bedtime Pravastatin 40 MG tablet Discontinued 40 mg PO AT BEDTIME July 30, 2014 1:00am August 03, 2024 9:19am Start: 07-30-2014 End: 08-03-2024 predniSONE 10 mg oral tablet (20 sources) Start: 02-16-2020 End: 03-02-2020 Prednisone 10 MG tablet Discontinued 4 {tbl} PO DAILY February 16, 2020 12:00am March 02, 2020 12:11pm rivaroxaban 20 mg oral tablet (20 sources) Factor Xa Inhibitor Start: 08-16-2019 End: 09-01-2024 take 1 tablet by mouth once daily at dinner Rivaroxaban 20 mg tablet Discontinued 20 mg PO daily August 03, 2024 1:00am September 01, 2024 8:41am must administer with evening meal Start: 08-16-2019 End: 08-03-2024 take 10 mg by mouth at dinner Rivaroxaban (Xarelto) 20 MG tablet Discontinued 10 mg PO WITH DINNER August 16, 2019 12:00am August 03, 2024 9:22am sulfamethoxazole 800 mg / trimethoprim 160 mg oral tablet (17 sources) Dihydrofolate Reductase Inhibitor Antibacterial, Sulfonamide Antimicrobial Start: 12-14-2021 End: 12-29-2021 Sulfamethoxazole-Trimethopri m (Bactrim Ds) 800-160 mg Tablet Discontinued 1 {tbl} PO TWICE A DAY December 14, 2021 12:00am December 29, 2021 1:53pm Start: 12-14-2021 End: 12-29-2021 tramadol hydrochloride 25 MG Oral Tablet (18 sources) Opioid Agonist Start: 06-27-2024 traMADol 25 mg oral tablet Dose : 50 mg = 2 tab(s), Oral, q6h, PRN as needed for pain, not to exceed 400 mg/day, 0 Refill(s), 110.5 Start Date: 06/27/24 Status: Ordered Repeat number: 1 Start: 01-05-2022 End: 08-03-2024 take 1 tablet by mouth every six hours as needed for pain Tramadol 50 mg tablet Discontinued 50 mg PO EVERY 6 HOURS as needed for pain January 05, 2022 12:00am August 03, 2024 9:26am 7 actuat umeclidinium 0.0625 mg/actuat / vilanterol 0.025 mg/actuat dry powder inhaler (20 sources) Anticholinergic, beta2-Adrenergic Agonist Start: 08-14-2020 End: 05-16-2021 take 1 dose by inhalation once daily as needed for wheezing Umeclidinium-Vilanterol 1 EACH blister with device Discontinued 1 NMA IH DAILY NEEDED as needed for Sob &/Or Wheezing August 14, 2020 1:00am May 16, 2021 11:11am Start: 08-14-2020 End: 05-16-2021 warfarin sodium 10 mg oral tablet (20 sources) Vitamin K Antagonist Start: 10-30-2015 End: 08-01-2017 Warfarin 10 MG tablet Discontinued 13 mg PO DAILY October 30, 2015 12:00am August 01, 2017 9:28am Start: 10-30-2015 End: 08-01-2017 take 13 mg by mouth once daily Warfarin Discontinued 1 3 MG PO DAILY October 30, 2015 12:00am August 01, 2017 9:28am (7 sources) Start: 08-03-2024 End: 09-21-2024 Start: 01-02-2022 Start: 11-14-2021 Start: 10-05-2021 End: 09-21-2024 Start: 10-05-2021 End: 11-14-2021 Start: 06-20-2020 End: 11-14-2021 Start: 03-14-2020 End: 06-20-2020 Problems Active Problems Problem Classification Problem Date Documented Da te Episodic/Chronic Abdominal pain (4 sources) Abdominal pain; Translations: [Unspecified abdominal pain] Onset: 09-25-2024 09-29-2024 Episodic Acute myocardial infarction (8 sources) Myocardial infarction; Translations: [Non-ST elevation (NSTEMI) myocardial infarction] Onset: 07-07-2024 07-05-2024 Chronic Cardiac arrest and ventricular fibrillation (8 sources) Cardiac arrest; Translations: [Cardiac arrest, cause unspecified] Onset: 07-07-2024 07-05-2024 Chronic Cardiac dysrhythmias (20 sources) Longstanding persistent atrial fibrillation; Translations: [Longstanding persistent atrial fibrillation] Onset: 09-10-2024 Chronic Cardiac dysrhythmias (1 source) Tachyarrhythmia ; Translations: [Tachycardia, unspecified] Episodic Chronic obstructive pulmonary disease and bronchiectasis (20 sources) Acute exacerbation of chronic obstructive airways disease; Translations: [Chronic obstructive pulmonary disease with (acute) exacerbation] Chronic Chronic ulcer of skin (20 sources) Ulcer of lower extremity; Translations: [Non-pressure chronic ulcer of unspecified part of left lower leg with fat layer exposed] Chronic Conduction disorders (20 sources) Right bundle branch block; Translations: [Unspecified right bundle-branch block] Onset: 09-01-2024 02-29-2020 Chronic Congestive heart failure; nonhypertensive (20 sources) Chronic diastolic heart failure; Translations: [Chronic diastolic (congestive) heart failure] Chronic Coronary atherosclerosis and other heart disease (5 sources) Coronary atherosclerosis; Translations: [Atherosclerotic heart disease of che[place]ue[place] coronary artery without angina pectoris] Chronic Coronary atherosclerosis and other heart disease (1 source) Presence of coronary angioplasty implant and graft; Translations: [Presence of coronary angioplasty implant and graft] Onset: 09-01-2024 Episodic Deficiency and other anemia (1 source) Iron deficiency anemia; Translations: [Iron deficiency anemia, unspecified] Episodic Deficiency and other anemia (7 sources) Anemia; Translations: [Anemia, unspecified] 07-05-2024 Episodic Diabetes mellitus with complications (2 sources) Hyperglycemia due to type 2 diabetes mellitus; Translations: [Type 2 diabetes mellitus with hyperglycemia] Onset: 02-18-2024 Chronic Diabetes mellitus without complication (20 sources) Type 2 diabetes mellitus; Translations: [Type 2 diabetes mellitus without complications] Chronic Disorders of lipid metabolism (20 sources) Hyperlipidemia; Translations: [Hyperlipidemia, unspecified] Onset: 09-01-2024 Chronic Essential hypertension (20 sources) Essential hypertension; Translations: [Essential (primary) hypertension] Onset: 09-01-2024 Chronic Comment on above: NO MEDS PRESENTLY, B P KEEPS GOING LOWER, 01/02/2022 LASIX LOWERED FOR LOW BP 94/62 Mood disorders (1 source) Depressive disorder; Translations: [Depression, unspecified] Chronic Nonspecific chest pain (9 sources) Chest pain; Translations: [Chest pain, unspecified] Onset: 09-07-2024 09-01-2024 Episodic Nutritional deficiencies (1 source) Vitamin D deficiency; Translations: [Vitamin D deficiency, unspecified] Chronic Open wounds of head; neck; and trunk (19 sources) Open wound of back, uncomplicated; Translations: [Unspecified open wound of unspecified back wall of thorax without penetration into thoracic cavity, initial encounter] Episodic Other and ill-defined heart disease (20 sources) Left ventricular diastolic dysfunction ; Translations: [Heart disease, unspecified] 02-29-2020 Chronic Other circulatory disease (7 sources) Low blood pressure; Translations: [Hypotension, unspecified] 07-05-2024 Episodic Other diseases of veins and lymphatics (20 sources) Venous insufficiency of leg; Translations: [Venous insufficiency (chronic) (peripheral)] 10-05-2021 Episodic Other diseases of veins and lymphatics (20 sources) Venous insufficiency (chronic) (peripheral); Translations: [Venous (peripheral) insufficiency, unspecified] Episodic Other fractures (2 sources) Fracture of multiple ribs ; Translations: [Multiple fractures of ribs, right side, initial encounter for closed fracture] 07-15-2024 Episodic Other fractures (2 sources) Multiple fractures of ribs, right side, initial encounter for closed fracture; Translations: [Fracture of multiple ribs of right side] 07-15-2024 Episodic Other gastrointestinal disorders (1 source) Slow transit constipation; Translations: [Slow transit constipation] Episodic Other injuries and conditions due to external causes (14 sources) Delayed healing of wound; Translations: [Other injury of unspecified body region, subsequent encounter] 02-14-2023 Episodic Other injuries and conditions due to external causes (20 sources) Other injury of unspecified body region, subsequent encounter; Translations: [Open wound(s) (multiple) of unspecified site(s), complicated] 03-02-2023 Episodic Other lower respiratory disease (4 sources) Cough; Translations: [Cough] 03-30-2024 Episodic Other lower respiratory disease (1 source) Shortness of breath; Translations: [Shortness of breath] Onset: 09-01-2024 Episodic Other skin disorders (17 sources) Cyst of skin; Translations: [Follicular cyst of the skin and subcutaneous tissue, unspecified] 12-29-2021 Episodic Comment on above: Patient presents wit h history that is strongly suspicious for a right upper back sebaceous cyst that became infected approximately 3 weeks to a month ago. Patient's believes this was result of him scratching it with the bottom of his cane. Cyst was initially incised by Dr. Toure and then referred to wound care center for ongoing management. Patient has completed 2 courses of antibiotics and the cyst infection appears resolved. However, they note some ongoing drainage from the site. This picture is confirmed on exam where patient has some residual fluctuance in the right upper back with a sinus tract and scant drainage of a milky sebum. Patient also reports a history of prior incision and drainage some 20 years ago. Given these repeated prior interventions, there is likely to be scar tissue in this area. Further, simply given its location the skin thickness is greater. Taken together, I recommend excision of this likely sebaceous cyst in the operating room under a local MAC. This recommendation has been shared with patient and his spouse. They are in agreement. I have also shared we will need to hold his anticoagulation 48 hours prior to the procedure and an additional 48 hours post procedure to mitigate risk for any bleeding complications. We will plan to notify patient's PCP, Dr. Jessi Olguin of this intent. Other skin disorders (4 sources) Follicular cyst of the skin and subcutaneous tissue, unspecified; Translations: [Sebaceous cyst] Episodic Pneumonia (except that caused by tuberculosis or sexually transmitted disease) (10 sources) Pneumonia; Translations: [Pneumonia, unspecified organism] Onset: 09-07-2024 09-01-2024 Episodic Residual codes; unclassified (3 sources) Other specified postprocedural states; Translations: [Personal history of surgery to other organs] Episodic Spondylosis; intervertebral disc disorders; other back problems (20 sources) Backache; Translations: [Dorsalgia, unspecified] 02-29-2020 Episodic Sprains and strains (8 sources) Strain of back muscle; Translations: [Strain of muscle, fascia and tendon of lower back, initial encounter] 06-02-2024 Episodic Syncope (10 sources) Syncope and collapse; Translations: [Syncope and collapse] Onset: 07-07-2024 Episodic Thyroid disorders (1 source) Hypothyroidism; Translations: [Hypothyroidism, unspecified] Chronic Unclassified (2 sources) I25.10 - Atherosclerotic heart disease of [place] coronary artery without angina pectoris,Z95.5 - Presence of coronary angioplasty implant and graft,I47.20 - Ventricular tachycardia, unspecified Unclassified (2 sources) As previously scheduled. Unclassified (2 sources) Ventricular tachycardia, unspecified; Translations: [Ventricular tachycardia, unspecified] Onset: 07-07-2024 Unclassified (1 source) Longstanding persistent atrial fibrillation; Translations: [Longstanding persistent atrial fibrillation] Onset: 07-07-2024 Unclassified (1 source) Low back pain, unspecified; Translations: [Low back pain, unspecified] Onset: 09-01-2024 Past or Other Problems Problem Classification Problem Date Documented Da te Episodic/Chronic Aspiration pneumonitis; food/vomitus (8 sources) Aspiration pneumonia; Translations: [Pneumonitis due to inhalation of food and vomit] Onset: 07-07-2024 07-05-2024 Episodic Deficiency and other anemia (1 source) Anemia, unspecified; Translations: [Anemia, unspecified] Onset: 07-07-2024 Episodic Other screening for suspected conditions (not mental disorders or infectious disease) (8 sources) Raised cardiac enzyme or marker; Translations: [Other specified abnormal findings of blood chemistry] Onset: 07-07-2024 07-05-2024 Episodic Respiratory failure; insufficiency; arrest (adult) (9 sources) Acute respiratory failure; Translations: [Acute respiratory failure with hypoxia] Onset: 06-27-2024 Episodic Septicemia (except in labor) (8 sources) Sepsis; Translations: [Sepsis, unspecified organism] Onset: 07-07-2024 07-05-2024 Episodic Results Test Name Value Interpretation Reference Range Facility Pulmonary Visit Reporton Pulmonary Visit Report Normal [facility] Abdomen Limitedon 10-14-2024 Abdomen Limited Normal [facility] Absolute lymphocyte countOrd ered By: Tati Caballero on 09-21-2024 Lymphocytes Auto (Unsp spec) [#/Vol] 1.49 10*3/uL 0.83-4.51 [facility] Absolute neutrophil countOrd ered By: Tati Caballero on 09-21-2024 Neutrophils (Bld) [#/Vol] 2.2 10*3/uL 2.0-7.7 [facility] Anion gap in Serum or Plasma Ordered By: Tati Caballero on 09-21-2024 Anion gap [Moles/Vol] 8 mmol/L 5- [facility] Automated lymphocyte count a s percentage of total leukocytesOrdered By: Tati Caballero on 09-21-2024 Lymphocytes/100 WBC Auto (Unsp spec) 34.3 % [facility] BUN/creatinine ratioOrdered By: Tati Caballero on 09-21-2024 Urea nitrogen/Creatinine [Mass ratio] 20.3 mg/mg High 10- [facility] Basophil percentageOrdered B y: Tati Caballero on 09-21-2024 Basophils/100 WBC (Bld) 0.2 % 0-1 [facility] Bilirubin Test strip Ql (U)O rdered By: Tati Caballero on 09-21-2024 Bilirubin Ql (U) Negative Negative [facility] Bilirubin, totalOrdered By: Tati Caballero on 09-21-2024 Bilirubin [Mass/Vol] 0.60 mg/dL 0.00-1.30 [facility] CBC W/Diff, Automatedon 09-02 MPV TNP Normal 6.2-12.0 [facility] Comment on above: Performed By: #### L 501.2450, L100.0100, [id number] ####[facility] [id number] [place], [address] Absolute Lymph 1.49 X10 3/uL Normal 0.83-4.51 [facility] Comment on above: Performed By: #### L [id number], L100.0100, [id number] ####[facility] [id number] [place], [address] Absolute Neut 2.2 X10 3/uL Normal 2.0-7.7 [facility] Comment on above: Performed By: #### L [id number], L100.0100, [id number] ####[facility] [address] [place], [address] Basophils/100 WBC (Bld) 0.2 % Normal 0-1 [facility] Comment on above: Performed By: #### L [id number], L100.0100, [id number] ####[facility] [address] [place], [address] Eosinophils/100 WBC (Bld) 2.5 % Normal 0-5 [facility] Comment on above: Performed By: #### L [id number], L100.0100, [id number] ####[facility] [id number] [place], [address] Erythrocyte distribution width (RBC) [Ratio] 12.9 % Normal 11.6-14.6 [facility] Comment on above: Performed By: #### L [id number], L100.0100, [id number] ####[facility] [address] [place], [address] Hematocrit (Bld) [Volume fraction] 34.5 % Low 40-54 [facility] Comment on above: Performed By: #### L [id number], L100.0100, [id number] ####[facility] [address] [place], [address] Hemoglobin (Bld) [Mass/Vol] 11.3 g/dL Low 13.0-16.5 [facility] Comment on above: Performed By: #### L [id number], L100.0100, [id number] ####[facility] [address] [place], [address] IG% 0.200 Normal 0.0-0.9 [facility] Comment on above: Result Comment: IG% - Immature Granulocytes (promyelocytes, myelocytes andmetamyelocytes) > 1% indicates that a LEFT SHIFT is Present. Performed By: #### L 501.2450, L100.0100, L500.4050 ####[facility] [address] [place], [address] Lymphocytes/100 WBC (Bld) 34.3 % Normal 19-41 [facility] Comment on above: Performed By: #### L 501.2450, L100.0100, L500.4050 ####[facility] [address] [place], [address] MCH (RBC) [Entitic mass] 30.1 pg Normal 27.0-32.0 [facility] Comment on above: Performed By: #### L 501.2450, L100.0100, L500.4050 ####[facility] [address] [place], [address] MCHC (RBC) [Mass/Vol] 32.8 g/dL Normal 32-36 [facility] Comment on above: Performed By: #### L 501.2450, L100.0100, L500.4050 ####[facility] [address] [place], [address] MCV (RBC) [Entitic vol] 92.0 fL Normal 80-94 [facility] Comment on above: Performed By: #### L 501.2450, L100.0100, L500.4050 ####[facility] [address] [place], [address] Monocytes/100 WBC (Bld) 12.4 % High 0-10 [facility] Comment on above: Performed By: #### L 501.2450, L100.0100, L500.4050 ####[facility] [address] [place], [address] Neutrophils/100 WBC (Bld) 50.4 % Normal 47-70 [facility] Comment on above: Performed By: #### L 501.2450, L100.0100, L500.4050 ####[facility] [address] [place], [address] Nucleated RBC (Bld) [#/Vol] 0 10*3/uL Normal 0-5 [facility] Comment on above: Performed By: #### L 501.2450, L100.0100, L500.4050 ####[facility] [address] [place], [address] RBC (Bld) [#/Vol] 3.75 10*6/uL Low 4.6-6.2 [facility] Comment on above: Performed By: #### L 501.2450, L100.0100, L500.4050 ####[facility] [address] [place], [address] RDW SD 43.1 fl Normal 35.1-43.9 [facility] Comment on above: Performed By: #### L 501.2450, L100.0100, L500.4050 ####[facility] [address] [place], [address] WBC (Bld) [#/Vol] 4.4 10*3/uL Normal 4.4-11.0 [facility] Comment on above: Performed By: #### L 501.2450, L100.0100, L500.4050 ####[facility] [address] [place], [address] Carbon dioxide, total [Moles /volume] in Central venous bloodOrdered By: Tati Caballero on 09-21-2024 CO2 [Moles/Vol] 25.9 mmol/L 21.0-32.0 [facility] Chloride assayOrdered By: Diamond Caballero on 09-21-2024 Chloride [Moles/Vol] 101 mmol/L 98-108 [facility] Comprehensive Metabolic Prof ilon 09-21-2024 Albumin [Mass/Vol] 3.6 g/dL Normal 3.4-4.8 [facility] Comment on above: Performed By: #### L 501.2450, L100.0100, L500.4050 ####[facility] [address] [place], [address] Albumin/Globulin [Mass ratio] 0.9 {ratio} Normal 0.9-2.4 [facility] Comment on above: Performed By: #### L 501.2450, L100.0100, L500.4050 ####[facility] [address] [place], [address] ALK PHOS 132 U/L High 40-129 [facility] Comment on above: Performed By: #### L 501.2450, L100.0100, L500.4050 ####[facility] [address] [place], [address] ALT [Catalytic activity/Vol] 13 U/L Normal <=46 [facility] Comment on above: Performed By: #### L 501.2450, L100.0100, L500.4050 ####[facility] [address] [place], [address] AST [Catalytic activity/Vol] 24 U/L Normal <=37 [facility] Comment on above: Performed By: #### L 501.2450, L100.0100, L500.4050 ####[facility] [address] [place], [address] Bilirubin [Mass/Vol] 0.60 mg/dL Normal 0.00-1.30 [facility] Comment on above: Performed By: #### L 501.2450, L100.0100, L500.4050 ####[facility] [address] [place], [address] BUN/CRE 20.3 RATIO High 10-20 [facility] Comment on above: Performed By: #### L 501.2450, L100.0100, L500.4050 ####[facility] [address] [place], [address] Calcium [Mass/Vol] 9.0 mg/dL Normal 7.6-11.0 [facility] Comment on above: Performed By: #### L 501.2450, L100.0100, L500.4050 ####[facility] [address] [place], [address] Chloride [Moles/Vol] 101 mmol/L Normal 98-108 [facility] Comment on above: Performed By: #### L 501.2450, L100.0100, L500.4050 ####[facility] [address] [place], [address] CO2 [Moles/Vol] 25.9 mmol/L Normal 21.0-32.0 [facility] Comment on above: Performed By: #### L 501.2450, L100.0100, L500.4050 ####[facility] [address] [place], [address] Creatinine [Mass/Vol] 0.96 mg/dL Normal 0.70-1.20 [facility] Comment on above: Performed By: #### L 501.2450, L100.0100, L500.4050 ####[facility] [address] [place], [address] GAP 8 Normal 5-15 [facility] Comment on above: Performed By: #### L 501.2450, L100.0100, L500.4050 ####[facility] [address] [place], [address] GFR/1.73 sq M.predicted among non-blacks MDRD (S/P/Bld) [Vol rate/Area] 82 mL/min/{1.73_m2} Normal >60 [facility] Comment on above: Result Comment: mL/m in/1.73m2 CKD-EPI Creatinine Equation (2020) Performed By: #### L 501.2450, L100.0100, L500.4050 ####[facility] [address] [place], [address] Globulin (S) [Mass/Vol] 3.9 g/dL Normal 2.2-4.2 [facility] Comment on above: Performed By: #### L 501.2450, L100.0100, L500.4050 ####[facility] [address] [place], [address] Glucose [Mass/Vol] 173 mg/dL High 70-99 [facility] Comment on above: Performed By: #### L 501.2450, L100.0100, L500.4050 ####[facility] [address] [place], [address] Potassium [Moles/Vol] 4.2 mmol/L Normal 3.3-5.1 [facility] Comment on above: Performed By: #### L 501.2450, L100.0100, L500.4050 ####[facility] [address] [place], [address] Sodium [Moles/Vol] 136 mmol/L Normal 133-145 [facility] Comment on above: Performed By: #### L 501.2450, L100.0100, L500.4050 ####[facility] [address] [place], [address] T PROT 7.5 g/dL Normal 5.9-8.4 [facility] Comment on above: Performed By: #### L 501.2450, L100.0100, L500.4050 ####[facility] [address] [place], [address] Urea nitrogen [Mass/Vol] 19 mg/dL Normal 4-19 [facility] Comment on above: Performed By: #### L 501.2450, L100.0100, L500.4050 ####[facility] [address] [place], [address] Emergency Department Summary on 09-21-2024 Emergency Department Summary Normal [facility] Eosinophil percentageOrdered By: Tati Caballero on 09-21-2024 Eosinophils/100 WBC (Bld) 2.5 % 0-5 [facility] Erythrocyte distribution wid th ratioOrdered By: Tati Caballero on 09-21-2024 Erythrocyte distribution width (RBC) [Ratio] 12.9 % 11.6-14.6 [facility] Erythrocyte distribution wid th standard deviationOrdered By: Tati Caballero on 09-21-2024 Erythrocyte distribution width (RBC) [Ratio] 43.1 fl 35.1-43.9 [facility] Glomerular filtration rate ( GFR) estimation/1.73 sq m using serum, plasma, or whole bOrdered By: Tati Caballero on 09-21-2024 GFR/1.73 sq M.predicted among non-blacks MDRD (S/P/Bld) [Vol rate/Area] 82 mL/min/{1.73_m2} >60 [facility] Comment on above: mL/min/1.73m2 CKD-EP I Creatinine Equation (2020) Hematocrit Auto (Bld) [Volum e fraction]Ordered By: Tati Caballero on 09-21-2024 Hematocrit (Bld) [Volume fraction] 34.5 % Low 40-54 [facility] Hemoglobin measurementOrdere d By: Tati Caballero on 09-21-2024 Hemoglobin (Bld) [Mass/Vol] 11.3 g/dL Low 13.0-16.5 [facility] Immature granulocytes/100 WB C Auto (Bld)Ordered By: Tati Caballero on 09-21-2024 Immature granulocytes/100 WBC (Bld) 0.200 % 0.0-0.9 [facility] Comment on above: IG% - Immature Granu locytes (promyelocytes, myelocytes and metamyelocytes) > 1% indicates that a LEFT SHIFT is Present. Ketones Test strip Ql (U)Ord ered By: Tati Caballero on 09-21-2024 Ketones Ql (U) Negative Negative [facility] Laboratory - Chemistry and C hemistry - challengeOrdered By: Tati Caballero on 09-21-2024 AST [Catalytic activity/Vol] 24 U/L <38 [facility] Lipaseon 09-21-2024 Lipase [Catalytic activity/Vol] 20 U/L Normal 13-75 [facility] Comment on above: Result Comment: Marcelle fritz note:LIPASE revised reference range effective 22.New Lipase methodology. Expected to produce lower valuesthan the previous assay method.NEW Reference Range: 13 - 75 U/L Performed By: #### L 501.2450, L100.0100, L500.4050 ####[facility] [address] [place], [address] Lipase measurementOrdered By : Tati Caballero on 09-21-2024 Lipase [Catalytic activity/Vol] 20 U/L 13-75 [facility] Comment on above: Please note:LIPASE r evised reference range effective 22. New Lipase methodology. Expected to produce lower values than the previous assay method. NEW Reference Range: 13 - 75 U/L MCV (mean corpuscular volume ) determinationOrdered By: Tati Caballero on 09-21-2024 MCV (RBC) [Entitic vol] 92.0 fL 80-94 [facility] Mean corpuscular hemoglobin (MCH) determinationOrdered By: Tati Caballero on 09-21-2024 MCH (RBC) [Entitic mass] 30.1 pg 27.0-32.0 [facility] Mean corpuscular hemoglobin concentration (MCHC) determinationOrdered By: Tati Caballero on 09-21-2024 MCHC (RBC) [Mass/Vol] 32.8 g/dL 32-36 [facility] Mean platelet volume determi nationOrdered By: Tati Caballero on 09-21-2024 Mean platelet volume determination TNP [facility] Comment on above: Test not performed Microscopic analysis of urin e for red blood cells (RBC)Ordered By: Tati Caballero on 09-21-2024 Microscopic analysis of urine for red blood cells (RBC) 0-5 SEEN /hpf 0-5 [facility] Monocyte percentageOrdered B y: Tati Caballero on 09-21-2024 Monocytes/100 WBC (Bld) 12.4 % High 0-10 [facility] Mucus LM Ql (Urine sed)Order ed By: Tati Caballero on 09-21-2024 Mucus Ql (Urine sed) 0 SEEN /hpf [facility] Neutrophil percentageOrdered By: Tati Caballero on 09-21-2024 Neutrophils/100 WBC (Bld) 50.4 % 47-70 [facility] Nitrite Test strip Ql (U)Ord ered By: Tati Caballero on 09-21-2024 Nitrite Ql (U) Negative Negative [facility] No Panel InformationOrdered By: Tati Caballero on 09-21-2024 24 U/L <38 [facility] Nucleated red blood cell per centageOrdered By: Tati Caballero on 09-21-2024 Nucleated RBC/100 WBC (Bld) [Ratio] 0 % 0-5 [facility] Platelet countOrdered By: Diamond Caballero on 09-21-2024 Platelet count TNP [facility] Comment on above: Test not performedPl ease note: For this sample, a platelet estimate is provided rather than a platelet count due to platelet clumping. Other parameters associated with this sample are not affected by platelet clumping. If a more accurate platelet count is required, a redraw of the patient will be necessary. Platelet estimateOrdered By: Tati Caballero on 09-21-2024 Platelets LM Ql (Bld) ADEQUATE ADEQ [facility] Potassium measurement (mass/ volume)Ordered By: Tati Caballero on 09-21-2024 Potassium (Unsp spec) [Mass/Vol] 4.2 mmol/L 3.3-5.1 [facility] Protein Test strip Ql (U)Ord ered By: Tati Caballero on 09-21-2024 Protein Ql (U) 15 mg/dl High Negative [facility] RBC Auto (Bld) [#/Vol]Ordere d By: Tati Caballero on 09-21-2024 RBC (Bld) [#/Vol] 3.75 10*6/uL Low 4.6-6.2 [facility] Serum creatinine measurement (mass/volume)Ordered By: Tati Caballero on 09-21-2024 Creatinine [Mass/Vol] 0.96 mg/dL 0.70-1.20 [facility] Serum globulin measurementOr dered By: Tati Caballero on 09-21-2024 Globulin (S) [Mass/Vol] 3.9 g/dL 2.2-4.2 [facility] Serum glucose measurement (m ass/volume)Ordered By: Tati Caballero on 09-21-2024 Glucose [Mass/Vol] 173 mg/dL High 70-99 [facility] Serum or plasma alanine grace otransferase (ALT) measurementOrdered By: Tati Caballero on 09-21-2024 ALT [Catalytic activity/Vol] 13 U/L <47 [facility] Serum or plasma albumin shweta urement (mass/volume)Ordered By: Tati Caballero on 09-21-2024 Albumin [Mass/Vol] 3.6 g/dL 3.4-4.8 [facility] Serum or plasma albumin/glob ulin mass ratioOrdered By: Tati Caballero on 09-21-2024 Albumin/Globulin [Mass ratio] 0.9 {ratio} 0.9-2.4 [facility] Serum or plasma alkaline gibson sphatase measurementOrdered By: Tati Caballero on 09-21-2024 ALP [Catalytic activity/Vol] 132 U/L High 40-129 [facility] Serum or plasma calcium shweta urement (mass/volume)Ordered By: Tati Caballero on 09-21-2024 Calcium [Mass/Vol] 9.0 mg/dL 7.6-11.0 [facility] Serum or plasma urea nitroge n measurement (mass/volume)Ordered By: Tati Caballero on 09-21-2024 Urea nitrogen [Mass/Vol] 19 mg/dL 4-19 [facility] Sodium levelOrdered By: Kimani Caballero on 09-21-2024 Sodium [Moles/Vol] 136 mmol/L 133-145 [facility] Squamous epithelial cells de tection in urine sediment by light microscopyOrdered By: Tati Caballero on 09-21-2024 Epithelial cells.squamous LM Ql (Urine sed) 0-5 SEEN /hpf 0-5 [facility] Total proteinOrdered By: Josué Caballero on 09-21-2024 Protein [Mass/Vol] 7.5 g/dL 5.9-8.4 [facility] Urinalysis, Completeon 09-21 BILIRUBIN URINE Negative Normal Negative [facility] Comment on above: Order Comment: CLEAN CATCH Performed By: #### L 400.0001 ####[facility] [address] [place], [address] Clarity (U) Clear Normal Clear [facility] Comment on above: Order Comment: CLEAN CATCH Performed By: #### L 400.0001 ####[facility] [address] [place], [address] Color (U) Yellow Normal Yellow [facility] Comment on above: Order Comment: CLEAN CATCH Performed By: #### L 400.0001 ####[facility] [address] [place], [address] GLUCOSE, UR Normal Normal Normal [facility] Comment on above: Order Comment: CLEAN CATCH Performed By: #### L 400.0001 ####[facility] [address] [place], [address] KETONE UR Negative Normal Negative [facility] Comment on above: Order Comment: CLEAN CATCH Performed By: #### L 400.0001 ####[facility] [address] [place], [address] LEUK ESTERASE Negative Normal Negative [facility] Comment on above: Order Comment: CLEAN CATCH Performed By: #### L 400.0001 ####[facility] [address] [place], [address] Nitrite Ql (U) Negative Normal Negative [facility] Comment on above: Order Comment: CLEAN CATCH Performed By: #### L 400.0001 ####[facility] [address] [place], [address] OCCULT BLOOD-UR Negative Normal Negative [facility] Comment on above: Order Comment: CLEAN CATCH Performed By: #### L 400.0001 ####[facility] [address] [place], [address] pH UR 6.0 Normal 5.0 - 8.0 [facility] Comment on above: Order Comment: CLEAN CATCH Performed By: #### L 400.0001 ####[facility] [address] [place], [address] PROT DIPSTX 15 mg/dl Abnormal Negative [facility] Comment on above: Order Comment: CLEAN CATCH Performed By: #### L 400.0001 ####[facility] [address] [place], [address] SP.GR. DIPSTX 1.015 Normal 1.002-1.03 0 [facility] Comment on above: Order Comment: CLEAN CATCH Performed By: #### L 400.0001 ####[facility] [address] [place], [address] UROBILI Normal Normal Normal [facility] Comment on above: Order Comment: CLEAN CATCH Performed By: #### L 400.0001 ####[facility] [address] [place], [address] Urine clarityOrdered By: Josué Caballero on 09-21-2024 Clarity (U) Clear Clear [facility] Urine color determinationOrd ered By: Tati Caballero on 09-21-2024 Color (U) Yellow Yellow [facility] Urine glucose detectionOrder ed By: Tati Caballero on 09-21-2024 Glucose Ql (U) Normal mg/dl Normal [facility] Urine leukocyte esterase det ection by dipstickOrdered By: Tati Caballero on 09-21-2024 Leukocyte esterase Test strip Ql (U) Negative Negative [facility] Urine pHOrdered By: Lizzeth Caballero on 09-21-2024 pH (U) 6.0 [pH] 5.0 - 8.0 [facility] Urine sediment bacteria coun t by microscopy (number/high power field)Ordered By: Tati Caballero on 09-21-2024 Bacteria LM.HPF (Urine sed) [#/Area] 0 /[HPF] None Seen [facility] Urine specific gravity measu rementOrdered By: Tati Caballero on 09-21-2024 Specific gravity (U) [Rel density] 1.015 1.002-1.03 0 [facility] Urine urobilinogen measureme ntOrdered By: Tati Caballero on 09-21-2024 Urobilinogen Ql (U) Normal mg/dl Normal [facility] White blood cell (WBC) count Ordered By: Tati Caballero on 09-21-2024 WBC (Bld) [#/Vol] 4.4 10*3/uL 4.4-11.0 [facility] White blood cell countOrdere d By: Tati Caballero on 09-21-2024 White blood cell count 0-5 SEEN /hpf 0-5 [facility] Basic Metabolic Profile (BMP )on 09-05-2024 BUN Normal 4-19 [facility] Comment on above: Result Comment: Canc elled via OM: Order cancelled - Patient discharged Performed By: #### L 500.2500, L100.0100 ####[facility] [address] [place], [address] BUN/CRE Normal 10-20 [facility] Comment on above: Result Comment: Canc elled via OM: Order cancelled - Patient discharged Performed By: #### L 500.2500, L100.0100 ####[facility] [address] [place], [address] Calcium Normal 7.6-11.0 [facility] Comment on above: Result Comment: Canc elled via OM: Order cancelled - Patient discharged Performed By: #### L 500.2500, L100.0100 ####[facility] [address] [place], [address] CL Normal 98-108 [facility] Comment on above: Result Comment: Canc elled via OM: Order cancelled - Patient discharged Performed By: #### L 500.2500, L100.0100 ####[facility] [address] [place], [address] CO2 Normal 21.0-32.0 [facility] Comment on above: Result Comment: Canc elled via OM: Order cancelled - Patient discharged Performed By: #### L 500.2500, L100.0100 ####[facility] [address] [place], [address] CREAT,SERUM Normal 0.70-1.20 [facility] Comment on above: Result Comment: Canc elled via OM: Order cancelled - Patient discharged Performed By: #### L 500.2500, L100.0100 ####[facility] [address] [place], [address] eGFR Normal >60 [facility] Comment on above: Result Comment: Canc elled via OM: Order cancelled - Patient discharged Performed By: #### L 500.2500, L100.0100 ####[facility] [address] [place], [address] GAP Normal 5-15 [facility] Comment on above: Result Comment: Canc elled via OM: Order cancelled - Patient discharged Performed By: #### L 500.2500, L100.0100 ####[facility] [address] [place], [address] GLU Normal 70-99 [facility] Comment on above: Result Comment: Canc elled via OM: Order cancelled - Patient discharged Performed By: #### L 500.2500, L100.0100 ####[facility] [address] [place], [address] Potassium Normal 3.3-5.1 [facility] Comment on above: Result Comment: Canc elled via OM: Order cancelled - Patient discharged Performed By: #### L 500.2500, L100.0100 ####[facility] [address] [place], [address] Basic Metabolic Profile (BMP) Normal 133-145 [facility] Comment on above: Result Comment: Canc elled via OM: Order cancelled - Patient discharged Performed By: #### L 500.2500, L100.0100 ####[facility] [address] [place], [address] CBC W/Diff, Automatedon 04-0 -2024 Absolute Neut Normal 2.0-7.7 [facility] Comment on above: Result Comment: Canc elled via OM: Order cancelled - Patient discharged Performed By: #### L 500.2500, L100.0100 ####[facility] [address] [place], [address] HCT Normal 40-54 [facility] Comment on above: Result Comment: Canc elled via OM: Order cancelled - Patient discharged Performed By: #### L 500.2500, L100.0100 ####[facility] [address] [place], [address] HGB Normal 13.0-16.5 [facility] Comment on above: Result Comment: Canc elled via OM: Order cancelled - Patient discharged Performed By: #### L 500.2500, L100.0100 ####[facility] [address] [place], [address] MCH Normal 27.0-32.0 [facility] Comment on above: Result Comment: Canc elled via OM: Order cancelled - Patient discharged Performed By: #### L 500.2500, L100.0100 ####[facility] [address] [place], [address] MCHC Normal 32-36 [facility] Comment on above: Result Comment: Canc elled via OM: Order cancelled - Patient discharged Performed By: #### L 500.2500, L100.0100 ####[facility] [address] [place], [address] MCV Normal 80-94 [facility] Comment on above: Result Comment: Canc elled via OM: Order cancelled - Patient discharged Performed By: #### L 500.2500, L100.0100 ####[facility] [address] [place], [address] NEUT% Normal 47-70 [facility] Comment on above: Result Comment: Canc elled via OM: Order cancelled - Patient discharged Performed By: #### L 500.2500, L100.0100 ####[facility] [address] [place], [address] PLT Normal 150-450 [facility] Comment on above: Result Comment: Canc elled via OM: Order cancelled - Patient discharged Performed By: #### L 500.2500, L100.0100 ####[facility] [address] [place], [address] RBC Normal 4.6-6.2 [facility] Comment on above: Result Comment: Canc elled via OM: Order cancelled - Patient discharged Performed By: #### L 500.2500, L100.0100 ####[facility] [address] [place], [address] RDW CV Normal 11.6-14.6 [facility] Comment on above: Result Comment: Canc elled via OM: Order cancelled - Patient discharged Performed By: #### L 500.2500, L100.0100 ####[facility] [address] [place], [address] RDW SD Normal 35.1-43.9 [facility] Comment on above: Result Comment: Canc elled via OM: Order cancelled - Patient discharged Performed By: #### L 500.2500, L100.0100 ####[facility] [address] [place], [address] WBC Normal 4.4-11.0 [facility] Comment on above: Result Comment: Canc elled via OM: Order cancelled - Patient discharged Performed By: #### L 500.2500, L100.0100 ####[facility] [address] [place], [address] Absolute lymphocyte countOrd ered By: Jessi Olguin on 09-04-2024 Lymphocytes Auto (Unsp spec) [#/Vol] 1.13 10*3/uL 0.83-4.51 [facility] Absolute neutrophil countOrd ered By: Jessi Olguin on 09-04-2024 Neutrophils (Bld) [#/Vol] 3.4 10*3/uL 2.0-7.7 [facility] Anion gap in Serum or Plasma Ordered By: Jessi Olguin on 09-04-2024 Anion gap [Moles/Vol] 9 mmol/L 5-15 [facility] Automated lymphocyte count a s percentage of total leukocytesOrdered By: Jessi Olguin on 09-04-2024 Lymphocytes/100 WBC Auto (Unsp spec) 21.6 % 19-41 [facility] BUN/creatinine ratioOrdered By: Jessi Olguin on 09-04-2024 Urea nitrogen/Creatinine [Mass ratio] 21.4 mg/mg High 10-20 [facility] Basic Metabolic Profile (BMP )on 09-04-2024 BUN Normal 4-19 [facility] Comment on above: Result Comment: Canc elled via OM: Order cancelled - Patient discharged Performed By: #### L 500.2500, L100.0100 ####[facility] [address] [place], [address] BUN/CRE Normal 10-20 [facility] Comment on above: Result Comment: Canc elled via OM: Order cancelled - Patient discharged Performed By: #### L 500.2500, L100.0100 ####[facility] [address] [place], [address] Calcium Normal 7.6-11.0 [facility] Comment on above: Result Comment: Canc elled via OM: Order cancelled - Patient discharged Performed By: #### L 500.2500, L100.0100 ####[facility] [address] [place], [address] CL Normal 98-108 [facility] Comment on above: Result Comment: Canc elled via OM: Order cancelled - Patient discharged Performed By: #### L 500.2500, L100.0100 ####[facility] [address] [place], [address] CO2 Normal 21.0-32.0 [facility] Comment on above: Result Comment: Canc elled via OM: Order cancelled - Patient discharged Performed By: #### L 500.2500, L100.0100 ####[facility] [address] [place], [address] CREAT,SERUM Normal 0.70-1.20 [facility] Comment on above: Result Comment: Canc elled via OM: Order cancelled - Patient discharged Performed By: #### L 500.2500, L100.0100 ####[facility] [address] [place], [address] eGFR Normal >60 [facility] Comment on above: Result Comment: Canc elled via OM: Order cancelled - Patient discharged Performed By: #### L 500.2500, L100.0100 ####[facility] [address] [place], [address] GAP Normal 5-15 [facility] Comment on above: Result Comment: Canc elled via OM: Order cancelled - Patient discharged Performed By: #### L 500.2500, L100.0100 ####[facility] [address] [place], [address] GLU Normal 70-99 [facility] Comment on above: Result Comment: Canc elled via OM: Order cancelled - Patient discharged Performed By: #### L 500.2500, L100.0100 ####[facility] [address] [place], [address] Potassium Normal 3.3-5.1 [facility] Comment on above: Result Comment: Canc elled via OM: Order cancelled - Patient discharged Performed By: #### L 500.2500, L100.0100 ####[facility] [address] [place], [address] Basic Metabolic Profile (BMP) Normal 133-145 [facility] Comment on above: Result Comment: Canc elled via OM: Order cancelled - Patient discharged Performed By: #### L 500.2500, L100.0100 ####[facility] [address] [place], [address] Basophil percentageOrdered B y: Jessi Sharif on 09-04-2024 Basophils/100 WBC (Bld) 0.4 % 0-1 [facility] Bilirubin, totalOrdered By: Jessi Olguin on 09-04-2024 Bilirubin [Mass/Vol] 0.56 mg/dL 0.00-1.30 [facility] CBC W/Diff, Automatedon 04-0 PLT EST SLT DEC Normal ADEQ [facility] Comment on above: Order Comment: Order Date: 09/04/24Order Info: [id number] - CBCD Performed By: #### L 100.0100, L501.9985, L500.4050 ####[facility] [address] [place], [address] Absolute Neut Normal 2.0-7.7 [facility] Comment on above: Result Comment: Canc elled via OM: Order cancelled - Patient discharged Performed By: #### L 500.2500, L100.0100 ####[facility] [address] [place], [address] HCT Normal 40-54 [facility] Comment on above: Result Comment: Canc elled via OM: Order cancelled - Patient discharged Performed By: #### L 500.2500, L100.0100 ####[facility] [address] [place], [address] HGB Normal 13.0-16.5 [facility] Comment on above: Result Comment: Canc elled via OM: Order cancelled - Patient discharged Performed By: #### L 500.2500, L100.0100 ####[facility] [address] [place], [address] MCH Normal 27.0-32.0 [facility] Comment on above: Result Comment: Canc elled via OM: Order cancelled - Patient discharged Performed By: #### L 500.2500, L100.0100 ####[facility] [address] [place], [address] MCHC Normal 32-36 [facility] Comment on above: Result Comment: Canc elled via OM: Order cancelled - Patient discharged Performed By: #### L 500.2500, L100.0100 ####[facility] [address] [place], [address] MCV Normal 80-94 [facility] Comment on above: Result Comment: Canc elled via OM: Order cancelled - Patient discharged Performed By: #### L 500.2500, L100.0100 ####[facility] [address] [place], [address] NEUT% Normal 47-70 [facility] Comment on above: Result Comment: Canc elled via OM: Order cancelled - Patient discharged Performed By: #### L 500.2500, L100.0100 ####[facility] [address] [place], [address] PLT Normal 150-450 [facility] Comment on above: Result Comment: Canc elled via OM: Order cancelled - Patient discharged Performed By: #### L 500.2500, L100.0100 ####[facility] [address] [place], [address] RBC Normal 4.6-6.2 [facility] Comment on above: Result Comment: Canc elled via OM: Order cancelled - Patient discharged Performed By: #### L 500.2500, L100.0100 ####[facility] [address] [place], [address] RDW CV Normal 11.6-14.6 [facility] Comment on above: Result Comment: Canc elled via OM: Order cancelled - Patient discharged Performed By: #### L 500.2500, L100.0100 ####[facility] [address] [place], [address] RDW SD Normal 35.1-43.9 [facility] Comment on above: Result Comment: Canc elled via OM: Order cancelled - Patient discharged Performed By: #### L 500.2500, L100.0100 ####[facility] [address] [place], [address] WBC Normal 4.4-11.0 [facility] Comment on above: Result Comment: Canc elled via OM: Order cancelled - Patient discharged Performed By: #### L 500.2500, L100.0100 ####[facility] [address] [place], [address] Carbon dioxide, total [Moles /volume] in Central venous bloodOrdered By: Jessi Olguin on 09-04-2024 CO2 [Moles/Vol] 22.9 mmol/L 21.0-32.0 [facility] Chloride assayOrdered By: Oscar Olguin on 09-04-2024 Chloride [Moles/Vol] 105 mmol/L 98-108 [facility] Comprehensive Metabolic Prof ilon 09-04-2024 Albumin [Mass/Vol] 3.5 g/dL Normal 3.4-4.8 [facility] Comment on above: Order Comment: Order Date: 09/04/24Order Info: [id number] - CMP Performed By: #### L 100.0100, L501.9985, L500.4050 ####[facility] [address] [place], [address] Albumin/Globulin [Mass ratio] 0.9 {ratio} Normal 0.9-2.4 [facility] Comment on above: Order Comment: Order Date: 09/04/24Order Info: [id number] - CMP Performed By: #### L 100.0100, L501.9985, L500.4050 ####[facility] [address] [place], [address] ALK PHOS 117 U/L Normal 40-129 [facility] Comment on above: Order Comment: Order Date: 09/04/24Order Info: [id number] - CMP Performed By: #### L 100.0100, L501.9985, L500.4050 ####[facility] [address] [place], [address] ALT [Catalytic activity/Vol] 12 U/L Normal <=46 [facility] Comment on above: Order Comment: Order Date: 09/04/24Order Info: [id number] - CMP Performed By: #### L 100.0100, L501.9985, L500.4050 ####[facility] [address] [place], [address] AST [Catalytic activity/Vol] 19 U/L Normal <=37 [facility] Comment on above: Order Comment: Order Date: 09/04/24Order Info: [id number] - CMP Performed By: #### L 100.0100, L501.9985, L500.4050 ####[facility] [address] [place], [address] Bilirubin [Mass/Vol] 0.56 mg/dL Normal 0.00-1.30 [facility] Comment on above: Order Comment: Order Date: 09/04/24Order Info: [id number] - CMP Performed By: #### L 100.0100, L501.9985, L500.4050 ####[facility] [address] [place], [address] BUN/CRE 21.4 RATIO High 10-20 [facility] Comment on above: Order Comment: Order Date: 09/04/24Order Info: [id number] - CMP Performed By: #### L 100.0100, L501.9985, L500.4050 ####[facility] [address] [place], [address] Calcium [Mass/Vol] 9.1 mg/dL Normal 7.6-11.0 [facility] Comment on above: Order Comment: Order Date: 09/04/24Order Info: [id number] - CMP Performed By: #### L 100.0100, L501.9985, L500.4050 ####[facility] [address] [place], [address] Chloride [Moles/Vol] 105 mmol/L Normal 98-108 [facility] Comment on above: Order Comment: Order Date: 09/04/24Order Info: [id number] - CMP Performed By: #### L 100.0100, L501.9985, L500.4050 ####[facility] [address] [place], [address] CO2 [Moles/Vol] 22.9 mmol/L Normal 21.0-32.0 [facility] Comment on above: Order Comment: Order Date: 09/04/24Order Info: [id number] - CMP Performed By: #### L 100.0100, L501.9985, L500.4050 ####[facility] [address] [place], [address] Creatinine [Mass/Vol] 0.91 mg/dL Normal 0.70-1.20 [facility] Comment on above: Order Comment: Order Date: 09/04/24Order Info: [id number] - CMP Performed By: #### L 100.0100, L501.9985, L500.4050 ####[facility] [address] [place], [address] GAP 9 Normal 5-15 [facility] Comment on above: Order Comment: Order Date: 09/04/24Order Info: [id number] - CMP Performed By: #### L 100.0100, L501.9985, L500.4050 ####[facility] [address] [place], [address] GFR/1.73 sq M.predicted among non-blacks MDRD (S/P/Bld) [Vol rate/Area] 88 mL/min/{1.73_m2} Normal >60 [facility] Comment on above: Order Comment: Order Date: 09/04/24Order Info: [id number] - CMP Result Comment: mL/m in/1.73m2 CKD-EPI Creatinine Equation (2020) Performed By: #### L 100.0100, L501.9985, L500.4050 ####[facility] [address] [place], [address] Globulin (S) [Mass/Vol] 4.1 g/dL Normal 2.2-4.2 [facility] Comment on above: Order Comment: Order Date: 09/04/24Order Info: [id number] - CMP Performed By: #### L 100.0100, L501.9985, L500.4050 ####[facility] [address] [place], [address] Glucose [Mass/Vol] 176 mg/dL High 70-99 [facility] Comment on above: Order Comment: Order Date: 09/04/24Order Info: [id number] - CMP Performed By: #### L 100.0100, L501.9985, L500.4050 ####[facility] [address] [place], [address] Potassium [Moles/Vol] 3.9 mmol/L Normal 3.3-5.1 [facility] Comment on above: Order Comment: Order Date: 09/04/24Order Info: [id number] - CMP Performed By: #### L 100.0100, L501.9985, L500.4050 ####[facility] [address] [place], [address] Sodium [Moles/Vol] 137 mmol/L Normal 133-145 [facility] Comment on above: Order Comment: Order Date: 09/04/24Order Info: [id number] - CMP Performed By: #### L 100.0100, L501.9985, L500.4050 ####[facility] [address] [place], [address] T PROT 7.6 g/dL Normal 5.9-8.4 [facility] Comment on above: Order Comment: Order Date: 09/04/24Order Info: [id number] - CMP Performed By: #### L 100.0100, L501.9985, L500.4050 ####[facility] [address] [place], [address] Urea nitrogen [Mass/Vol] 19 mg/dL Normal 4-19 [facility] Comment on above: Order Comment: Order Date: 09/04/24Order Info: [id number] - CMP Performed By: #### L 100.0100, L501.9985, L500.4050 ####[facility] [address] [place], [address] Eosinophil percentageOrdered By: Jessi Olguin on 09-04-2024 Eosinophils/100 WBC (Bld) 3.6 % 0-5 [facility] Erythrocyte distribution wid th (RBC) [Ratio]Ordered By: Jessi Olguin on 09-04-2024 Erythrocyte distribution width (RBC) [Entitic vol] 50.0 fL High 35.1-43.9 [facility] Erythrocyte distribution wid th ratioOrdered By: Jessi Olguin on 09-04-2024 Erythrocyte distribution width (RBC) [Ratio] 14.1 % 11.6-14.6 [facility] Erythrocyte distribution wid th standard deviationOrdered By: Jessi Olguin on 09-04-2024 Erythrocyte distribution width (RBC) [Ratio] 50.0 fl High 35.1-43.9 [facility] GFR/1.73 sq M.predicted mikayla g non-blacks MDRD (S/P/Bld) [Vol rate/Area]Ordered By: Jessi Olguin on 09-04-2024 Estimated GFR (MDRD) Non-Af Amer 88 >60 [facility] Comment on above: mL/min/1.73m2 CKD-EP I Creatinine Equation (2020) Glomerular filtration rate ( GFR) estimation/1.73 sq m using serum, plasma, or whole bOrdered By: Jessi Olguin on 09-04-2024 GFR/1.73 sq M.predicted among non-blacks MDRD (S/P/Bld) [Vol rate/Area] 88 mL/min/{1.73_m2} >60 [facility] Comment on above: mL/min/1.73m2 CKD-EP I Creatinine Equation (2020) Hematocrit Auto (Bld) [Volum e fraction]Ordered By: Jessi Olguin on 09-04-2024 Hematocrit (Bld) [Volume fraction] 35.4 % Low 40-54 [facility] Hemoglobin A1con 09-04-2024 HbA1c (Bld) [Mass fraction] 6.8 % Normal <=5.6 [facility] Comment on above: Order Comment: Order Date: 09/04/24Order Info: [id number] - A1C Performed By: #### L 100.0100, L501.9985, L500.4050 ####[facility] [address] [place], [place], [address] Hemoglobin A1c percentageOrd ered By: Jessi Olguin on 09-04-2024 HbA1c (Bld) [Mass fraction] 6.8 % >5.7 [facility] Hemoglobin measurementOrdere d By: Jessi Olguin on 09-04-2024 Hemoglobin (Bld) [Mass/Vol] 11.4 g/dL Low 13.0-16.5 [facility] Immature granulocytes/100 WB C Auto (Bld)Ordered By: Jessi Olguin on 09-04-2024 Immature granulocytes/100 WBC (Bld) 0.600 % 0.0-0.9 [facility] Comment on above: IG% - Immature Granu locytes (promyelocytes, myelocytes and metamyelocytes) > 1% indicates that a LEFT SHIFT is Present. Laboratory - Chemistry and C hemistry - challengeOrdered By: Jessi Olguin on 09-04-2024 AST [Catalytic activity/Vol] 19 U/L <38 [facility] Lymphocytes Auto (Unsp spec) [#/Vol]Ordered By: Jessi Olguin on 09-04-2024 Lymphocytes (Bld) [#/Vol] 1.13 10*3/uL 0.83-4.51 [facility] Lymphocytes/100 WBC Auto (Un sp spec)Ordered By: Jessi Olguin on 09-04-2024 Lymphocytes/100 WBC (Bld) 21.6 % 19-41 [facility] MCV (mean corpuscular volume ) determinationOrdered By: Jessi Olguin on 09-04-2024 MCV (RBC) [Entitic vol] 96.2 fL High 80-94 [facility] Mean corpuscular hemoglobin (MCH) determinationOrdered By: Jessi Olguin on 09-04-2024 MCH (RBC) [Entitic mass] 31.0 pg 27.0-32.0 [facility] Mean corpuscular hemoglobin concentration (MCHC) determinationOrdered By: Jessi Olguin on 09-04-2024 MCHC (RBC) [Mass/Vol] 32.2 g/dL 32-36 [facility] Mean platelet volume determi nationOrdered By: Jessi Olguin on 09-04-2024 Platelet mean volume (Bld) [Entitic vol] 13.9 fL High 6.2-12.0 [facility] Monocyte percentageOrdered B y: Jessi Olguin on 09-04-2024 Monocytes/100 WBC (Bld) 9.8 % 0-10 [facility] Neutrophil percentageOrdered By: Jessi Olguin on 09-04-2024 Neutrophils/100 WBC (Bld) 64.0 % 47-70 [facility] No Panel InformationOrdered By: Jessi Olguin on 09-04-2024 19 U/L <38 [facility] Nucleated red blood cell per centageOrdered By: Jessi Olguin on 09-04-2024 Nucleated RBC/100 WBC (Bld) [Ratio] 0 % 0-5 [facility] Platelet countOrdered By: Oscar Olguin on 09-04-2024 Platelet Count See comment [id number] [facility] Comment on above: Please note: For thi s sample, a platelet estimate is provided rather than a platelet count due to platelet clumping. Other parameters associated with this sample are not affected by platelet clumping. If a more accurate platelet count is required, a redraw of the patient will be necessary. Platelet estimateOrdered By: Jessi Olguin on 09-04-2024 Platelets LM Ql (Bld) SLT DEC ADEQ [facility] Platelets LM Ql (Bld)Ordered By: Jessi Olguin on 09-04-2024 Platelet Estimate SLT DEC [facility] Potassium (Unsp spec) [Mass/ Vol]Ordered By: Jessi Olguin on 09-04-2024 Potassium [Moles/Vol] 3.9 mmol/L 3.3-5.1 [facility] Potassium measurement (mass/ volume)Ordered By: Jessi Olguin on 09-04-2024 Potassium (Unsp spec) [Mass/Vol] 3.9 mmol/L 3.3-5.1 [facility] RBC Auto (Bld) [#/Vol]Ordere d By: Jessi Olguin on 09-04-2024 RBC (Bld) [#/Vol] 3.68 10*6/uL Low 4.6-6.2 [facility] Serum creatinine measurement (mass/volume)Ordered By: Jessi Olguin on 09-04-2024 Creatinine [Mass/Vol] 0.91 mg/dL 0.70-1.20 [facility] Serum globulin measurementOr dered By: Jessi Olguin on 09-04-2024 Globulin (S) [Mass/Vol] 4.1 g/dL 2.2-4.2 [facility] Serum glucose measurement (m ass/volume)Ordered By: Jessi Olguin on 09-04-2024 Glucose [Mass/Vol] 176 mg/dL High 70-99 [facility] Serum or plasma alanine grace otransferase (ALT) measurementOrdered By: Jessi Olguin on 09-04-2024 ALT [Catalytic activity/Vol] 12 U/L <47 [facility] Serum or plasma albumin shweta urement (mass/volume)Ordered By: Jessi Olguin on 09-04-2024 Albumin [Mass/Vol] 3.5 g/dL 3.4-4.8 [facility] Serum or plasma albumin/glob ulin mass ratioOrdered By: Jessi Olguni on 09-04-2024 Albumin/Globulin [Mass ratio] 0.9 {ratio} 0.9-2.4 [facility] Serum or plasma alkaline gibson sphatase measurementOrdered By: Jessi Olguin on 09-04-2024 ALP [Catalytic activity/Vol] 117 U/L 40-129 [facility] Serum or plasma calcium shweta urement (mass/volume)Ordered By: Jessi Olguin on 09-04-2024 Calcium [Mass/Vol] 9.1 mg/dL 7.6-11.0 [facility] Serum or plasma urea nitroge n measurement (mass/volume)Ordered By: Jessi Olguin on 09-04-2024 Urea nitrogen [Mass/Vol] 19 mg/dL 4-19 [facility] Sodium levelOrdered By: Jessi Olguin on 09-04-2024 Sodium [Moles/Vol] 137 mmol/L 133-145 [facility] Total proteinOrdered By: Ana Luisa Olguin on 09-04-2024 Protein [Mass/Vol] 7.6 g/dL 5.9-8.4 [facility] White blood cell (WBC) count Ordered By: Jessi Olguin on 09-04-2024 WBC (Bld) [#/Vol] 5.2 10*3/uL 4.4-11.0 [facility] Absolute lymphocyte countOrd ered By: Wood Braxton on 09-03-2024 Lymphocytes Auto (Unsp spec) [#/Vol] 1.57 10*3/uL 0.83-4.51 [facility] Absolute neutrophil countOrd ered By: Wood Braxton on 09-03-2024 Neutrophils (Bld) [#/Vol] 2.8 10*3/uL 2.0-7.7 [facility] Anion gap in Serum or Plasma Ordered By: Wood Braxton on 09-03-2024 Anion gap [Moles/Vol] 10 mmol/L 5-15 [facility] Automated lymphocyte count a s percentage of total leukocytesOrdered By: Wood Braxtno on 09-03-2024 Lymphocytes/100 WBC Auto (Unsp spec) 30.3 % 19-41 [facility] BUN/creatinine ratioOrdered By: Wood Braxton on 09-03-2024 Urea nitrogen/Creatinine [Mass ratio] 25.6 mg/mg High 10-20 [facility] Basic Metabolic Profile (BMP )on 09-03-2024 BUN/CRE 25.6 RATIO High 10- [facility] Comment on above: Performed By: #### L 501.5200, L501.2300, L100.0100, L500.2500 ####[facility] [address] [place], [address] Calcium [Mass/Vol] 8.7 mg/dL Normal 7.6-11.0 [facility] Comment on above: Performed By: #### L 501.5200, L501.2300, L100.0100, L500.2500 ####[facility] [address] [place], [address] Chloride [Moles/Vol] 104 mmol/L Normal 98-108 [facility] Comment on above: Performed By: #### L 501.5200, L501.2300, L100.0100, L500.2500 ####[facility] [address] [place], [address] CO2 [Moles/Vol] 21.9 mmol/L Normal 21.0-32.0 [facility] Comment on above: Performed By: #### L 501.5200, L501.2300, L100.0100, L500.2500 ####[facility] [address] [place], [address] Creatinine [Mass/Vol] 0.80 mg/dL Normal 0.70-1.20 [facility] Comment on above: Performed By: #### L 501.5200, L501.2300, L100.0100, L500.2500 ####[facility] [address] [place], [address] ECRCL 103.22 ml/min Normal 50-250 [facility] Comment on above: Performed By: #### L 501.5200, L501.2300, L100.0100, L500.2500 ####[facility] [address] [place], [address] GAP 10 Normal 5-15 [facility] Comment on above: Performed By: #### L 501.5200, L501.2300, L100.0100, L500.2500 ####[facility] [address] [place], [address] GFR/1.73 sq M.predicted among non-blacks MDRD (S/P/Bld) [Vol rate/Area] 92 mL/min/{1.73_m2} Normal >60 [facility] Comment on above: Result Comment: mL/m in/1.73m2 CKD-EPI Creatinine Equation (2020) Performed By: #### L 501.5200, L501.2300, L100.0100, L500.2500 ####[facility] [address] [place], [address] Glucose [Mass/Vol] 148 mg/dL High 70-99 [facility] Comment on above: Performed By: #### L 501.5200, L501.2300, L100.0100, L500.2500 ####[facility] [address] [place], [address] Potassium [Moles/Vol] 4.1 mmol/L Normal 3.3-5.1 [facility] Comment on above: Performed By: #### L 501.5200, L501.2300, L100.0100, L500.2500 ####[facility] [address] [place], [address] Sodium [Moles/Vol] 136 mmol/L Normal 133-145 [facility] Comment on above: Performed By: #### L 501.5200, L501.2300, L100.0100, L500.2500 ####[facility] [address] [place], [address] Urea nitrogen [Mass/Vol] 21 mg/dL High 4-19 [facility] Comment on above: Performed By: #### L 501.5200, L501.2300, L100.0100, L500.2500 ####[facility] [address] [place], [address] Basophil percentageOrdered B y: Wood Braxton on 09-03-2024 Basophils/100 WBC (Bld) 0.6 % 0-1 [facility] Bedside Glucoseon 09-03-2024 FINGERSTICK GLU 146 mg/dL High 74-106 [facility] Comment on above: Result Comment: MARIUM GEMENT OF PATIENT CARE PER NURSING PROTOCOL Performed By: #### L 501.080 ####[facility] [address] [place], [address] FINGERSTICK GLU 151 mg/dL High 74-106 [facility] Comment on above: Result Comment: MARIUM GEMENT OF PATIENT CARE PER NURSING PROTOCOL Performed By: #### L 501.080 ####[facility] [address] [place], [address] CBC W/Diff, Automatedon PLT TNP Normal 150-450 [facility] Comment on above: Result Comment: Plea se note: For this sample, a platelet estimate isprovided rather than a platelet count due to plateletclumping. Other parameters associated with this sample arenot affected by platelet clumping. If a more accurateplatelet count is required, a redraw of the patient will benecessary. Performed By: #### L 501.5200, L501.2300, L100.0100, L500.2500 ####[facility] [address] [place], [address] PLT EST ADEQUATE Normal ADEQ [facility] Comment on above: Performed By: #### L 501.5200, L501.2300, L100.0100, L500.2500 ####[facility] [address] [place], [address] Carbon dioxide, total [Moles /volume] in Central venous bloodOrdered By: Wood Braxton on 09-03-2024 CO2 [Moles/Vol] 21.9 mmol/L 21.0-32.0 [facility] Chloride assayOrdered By: Romulo Braxton on 09-03-2024 Chloride [Moles/Vol] 104 mmol/L 98-108 [facility] Eosinophil percentageOrdered By: Wood Braxton on 09-03-2024 Eosinophils/100 WBC (Bld) 2.1 % 0-5 [facility] Erythrocyte distribution wid th (RBC) [Ratio]Ordered By: Wood Braxton on 09-03-2024 Erythrocyte distribution width (RBC) [Entitic vol] 48.0 fL High 35.1-43.9 [facility] Erythrocyte distribution wid th ratioOrdered By: Wood Braxton on 09-03-2024 Erythrocyte distribution width (RBC) [Ratio] 14.0 % 11.6-14.6 [facility] Erythrocyte distribution wid th standard deviationOrdered By: Wood Braxton on 09-03-2024 Erythrocyte distribution width (RBC) [Ratio] 48.0 fl High 35.1-43.9 [facility] Estimation of creatinine dennys aranceOrdered By: Wood Braxton on 09-03-2024 Estimated Creatinine Clearance Calc 103.22 ml/min 50-250 [facility] GFR/1.73 sq M.predicted mikayla g non-blacks MDRD (S/P/Bld) [Vol rate/Area]Ordered By: Wood Braxton on 09-03-2024 Estimated GFR (MDRD) Non-Af Amer 92 >60 [facility] Comment on above: mL/min/1.73m2 CKD-EP I Creatinine Equation (2020) Glomerular filtration rate ( GFR) estimation/1.73 sq m using serum, plasma, or whole bOrdered By: Wood Braxton on 09-03-2024 GFR/1.73 sq M.predicted among non-blacks MDRD (S/P/Bld) [Vol rate/Area] 92 mL/min/{1.73_m2} >60 [facility] Comment on above: mL/min/1.73m2 CKD-EP I Creatinine Equation (2020) [facility] deOrdered By: Wood Braxton on 09-03-2024 Bedside Glucose (Misc Panel) 146 mg/dL High 74-106 [facility] Comment on above: MANAGEMENT OF PATIEN T CARE PER NURSING PROTOCOL Glucose [Mass/Vol] 146 mg/dL High 74-106 [facility] Comment on above: MANAGEMENT OF PATIEN T CARE PER NURSING PROTOCOL Hematocrit Auto (Bld) [Volum e fraction]Ordered By: Wood Braxton on 09-03-2024 Hematocrit (Bld) [Volume fraction] 31.8 % Low 40-54 [facility] Hemoglobin measurementOrdere d By: Wood Braxton on 09-03-2024 Hemoglobin (Bld) [Mass/Vol] 10.6 g/dL Low 13.0-16.5 [facility] Immature granulocytes/100 WB C Auto (Bld)Ordered By: Wood Braxton on 09-03-2024 Immature granulocytes/100 WBC (Bld) 0.600 % 0.0-0.9 [facility] Comment on above: IG% - Immature Granu locytes (promyelocytes, myelocytes and metamyelocytes) > 1% indicates that a LEFT SHIFT is Present. Legionella Antigen Urineon 0 09-03-2024 LEGU Normal [facility] Comment on above: Performed By: #### M 300.2336, M300.7200 ####[facility] [address] [place], [place], [address] Lymphocytes Auto (Unsp spec) [#/Vol]Ordered By: Wood Braxton on 09-03-2024 Lymphocytes (Bld) [#/Vol] 1.57 10*3/uL 0.83-4.51 [facility] Lymphocytes/100 WBC Auto (Un sp spec)Ordered By: Wood Braxton on 09-03-2024 Lymphocytes/100 WBC (Bld) 30.3 % 19-41 [facility] MCV (mean corpuscular volume ) determinationOrdered By: Wood Braxton on 09-03-2024 MCV (RBC) [Entitic vol] 93.5 fL 80-94 [facility] Magnesiumon 09-03-2024 Magnesium [Mass/Vol] 1.9 mg/dL Normal 1.5-2.2 [facility] Comment on above: Performed By: #### L 501.5200, L501.2300, L100.0100, L500.2500 ####[facility] [address] [place], [place], [address] Magnesium (Unsp spec) [Mass/ Vol]Ordered By: Wood Braxton on 09-03-2024 Magnesium [Mass/Vol] 1.9 mg/dL 1.5-2.2 [facility] Magnesium measurement (mass/ volume)Ordered By: Wood Braxton on 09-03-2024 Magnesium (Unsp spec) [Mass/Vol] 1.9 mg/dL 1.5-2.2 [facility] Mean corpuscular hemoglobin (MCH) determinationOrdered By: Wood Braxton on 09-03-2024 MCH (RBC) [Entitic mass] 31.2 pg 27.0-32.0 [facility] Mean corpuscular hemoglobin concentration (MCHC) determinationOrdered By: Wood Braxton on 09-03-2024 MCHC (RBC) [Mass/Vol] 33.3 g/dL 32-36 [facility] Mean platelet volume determi nationOrdered By: Wood Braxton on 09-03-2024 [facility] Comment on above: Test not performed Mean platelet volume determination [facility] Comment on above: Test not performed Monocyte percentageOrdered B y: Wood Braxton on 09-03-2024 Monocytes/100 WBC (Bld) 12.2 % High 0-10 [facility] Neutrophil percentageOrdered By: Wood Braxton on 09-03-2024 Neutrophils/100 WBC (Bld) 54.2 % 47-70 [facility] Nucleated red blood cell per centageOrdered By: Wood Braxton on 09-03-2024 Nucleated RBC/100 WBC (Bld) [Ratio] 0 % 0-5 [facility] Phosphoruson 09-03-2024 Phosphate [Mass/Vol] 3.2 mg/dL Normal 2.7-4.5 [facility] Comment on above: Performed By: #### L 501.5200, L501.2300, L100.0100, L500.2500 ####[facility] [address] [place], [address] Platelet countOrdered By: Romulo Braxton on 09-03-2024 Platelet Count TNP [facility] Comment on above: Test not performedPl ease note: For this sample, a platelet estimate is provided rather than a platelet count due to platelet clumping. Other parameters associated with this sample are not affected by platelet clumping. If a more accurate platelet count is required, a redraw of the patient will be necessary. Platelet estimateOrdered By: Wood Braxton on 09-03-2024 Platelets LM Ql (Bld) [facility] Platelets LM Ql (Bld)Ordered By: Wood Braxton on 09-03-2024 Platelet Estimate ADEQUATE [facility] Potassium (Unsp spec) [Mass/ Vol]Ordered By: Wood Braxton on 09-03-2024 Potassium [Moles/Vol] 4.1 mmol/L 3.3-5.1 [facility] Potassium measurement (mass/ volume)Ordered By: Wood Braxton on 09-03-2024 Potassium (Unsp spec) [Mass/Vol] 4.1 mmol/L 3.3-5.1 [facility] RBC Auto (Bld) [#/Vol]Ordere d By: Wood Braxton on 09-03-2024 RBC (Bld) [#/Vol] 3.40 10*6/uL Low 4.6-6.2 [facility] Serum creatinine measurement (mass/volume)Ordered By: Wood Braxton on 09-03-2024 Creatinine [Mass/Vol] 0.80 mg/dL 0.70-1.20 [facility] Serum glucose measurement (m ass/volume)Ordered By: Wood Braxton on 09-03-2024 Glucose [Mass/Vol] 148 mg/dL High 70-99 [facility] Serum or plasma calcium shweta urement (mass/volume)Ordered By: Wood Braxton on 09-03-2024 Calcium [Mass/Vol] 8.7 mg/dL 7.6-11.0 [facility] Serum or plasma urea nitroge n measurement (mass/volume)Ordered By: Wood Braxton on 09-03-2024 Urea nitrogen [Mass/Vol] 21 mg/dL High 4-19 [facility] Serum phosphorus measurement Ordered By: Wood Braxton on 09-03-2024 Phosphorus Level 3.2 mg/dL 2.7-4.5 [facility] Sodium levelOrdered By: Jack Braxton on 09-03-2024 Sodium [Moles/Vol] 136 mmol/L 133-145 [facility] Strep pneumoniae Antig(UR,CS F)on 09-03-2024 STPAG Normal [facility] Comment on above: Performed By: #### M 300.4600, M300.4500 ####[facility] [address] [place], [address] White blood cell (WBC) count Ordered By: Wood Braxton on 09-03-2024 WBC (Bld) [#/Vol] 5.2 10*3/uL 4.4-11.0 [facility] 12 Lead EKGon 09-02-2024 12 Lead EKG Normal [facility] Bedside Glucoseon 09-02-2024 FINGERSTICK GLU 112 mg/dL High 74-106 [facility] Comment on above: Result Comment: MARIUM GEMENT OF PATIENT CARE PER NURSING PROTOCOL Performed By: #### L 501.080 ####[facility] [address] [place], [address] FINGERSTICK GLU 188 mg/dL High 74-106 [facility] Comment on above: Result Comment: MARIUM GEMENT OF PATIENT CARE PER NURSING PROTOCOL Performed By: #### L 501.080 ####[facility] [address] [place], [address] FINGERSTICK GLU 77 mg/dL Normal 74-106 [facility] Comment on above: Result Comment: MARIUM GEMENT OF PATIENT CARE PER NURSING PROTOCOL Performed By: #### L 501.080 ####[facility] [address] [place], [address] FINGERSTICK GLU 162 mg/dL High 74-106 [facility] Comment on above: Result Comment: MARIUM GEMENT OF PATIENT CARE PER NURSING PROTOCOL Performed By: #### L 501.080 ####[facility] [address] [place], [address] FINGERSTICK GLU 201 mg/dL High 74-106 [facility] Comment on above: Result Comment: MARIUM GEMENT OF PATIENT CARE PER NURSING PROTOCOL Performed By: #### L 501.080 ####[facility] [address] [place], [address] Bilirubin, totalOrdered By: Shonda Gaston on 09-02-2024 Bilirubin [Mass/Vol] 0.55 mg/dL 0.00-1.30 [facility] CBC W/Diff, Automatedon Absolute Lymph 1.26 X10 3/uL Normal 0.83-4.51 [facility] Comment on above: Performed By: #### L 500.4050, L100.0100 ####[facility] [address] [place], [address] Absolute Neut 2.8 X10 3/uL Normal 2.0-7.7 [facility] Comment on above: Performed By: #### L 500.4050, L100.0100 ####[facility] [address] [place], [address] Basophils/100 WBC (Bld) 0.4 % Normal 0-1 [facility] Comment on above: Performed By: #### L 500.4050, L100.0100 ####[facility] [address] [place], [address] Eosinophils/100 WBC (Bld) 1.5 % Normal 0-5 [facility] Comment on above: Performed By: #### L 500.4050, L100.0100 ####[facility] [address] [place], [address] Erythrocyte distribution width (RBC) [Ratio] 14.0 % Normal 11.6-14.6 [facility] Comment on above: Performed By: #### L 500.4050, L100.0100 ####[facility] [address] [place], [address] Hematocrit (Bld) [Volume fraction] 33.8 % Low 40-54 [facility] Comment on above: Performed By: #### L 500.4050, L100.0100 ####[facility] [address] [place], [address] Hemoglobin (Bld) [Mass/Vol] 11.2 g/dL Low 13.0-16.5 [facility] Comment on above: Performed By: #### L 500.4050, L100.0100 ####[facility] [address] [place], [address] IG% 0.400 Normal 0.0-0.9 [facility] Comment on above: Result Comment: IG% - Immature Granulocytes (promyelocytes, myelocytes andmetamyelocytes) > 1% indicates that a LEFT SHIFT is Present. Performed By: #### L 500.4050, L100.0100 ####[facility] [address] [place], [address] Lymphocytes/100 WBC (Bld) 26.8 % Normal 19-41 [facility] Comment on above: Performed By: #### L 500.4050, L100.0100 ####[facility] [address] [place], [address] MCH (RBC) [Entitic mass] 31.3 pg Normal 27.0-32.0 [facility] Comment on above: Performed By: #### L 500.4050, L100.0100 ####[facility] [address] [place], [address] MCHC (RBC) [Mass/Vol] 33.1 g/dL Normal 32-36 [facility] Comment on above: Performed By: #### L 500.4050, L100.0100 ####[facility] [address] [place], [address] MCV (RBC) [Entitic vol] 94.4 fL High 80-94 [facility] Comment on above: Performed By: #### L 500.4050, L100.0100 ####[facility] [address] [place], [address] Monocytes/100 WBC (Bld) 10.8 % High 0-10 [facility] Comment on above: Performed By: #### L 500.4050, L100.0100 ####[facility] [address] [place], [address] Neutrophils/100 WBC (Bld) 60.1 % Normal 47-70 [facility] Comment on above: Performed By: #### L 500.4050, L100.0100 ####[facility] [address] [place], [address] Nucleated RBC (Bld) [#/Vol] 0 10*3/uL Normal 0-5 [facility] Comment on above: Performed By: #### L 500.4050, L100.0100 ####[facility] [address] [place], [address] Platelet mean volume (Bld) [Entitic vol] 13.3 fL High 6.2-12.0 [facility] Comment on above: Performed By: #### L 500.4050, L100.0100 ####[facility] [address] [place], [address] Platelets (Bld) [#/Vol] 159 10*3/uL Normal 150-450 [facility] Comment on above: Performed By: #### L 500.4050, L100.0100 ####[facility] [address] [place], [address] RBC (Bld) [#/Vol] 3.58 10*6/uL Low 4.6-6.2 [facility] Comment on above: Performed By: #### L 500.4050, L100.0100 ####[facility] [address] [place], [address] RDW SD 48.8 fl High 35.1-43.9 [facility] Comment on above: Performed By: #### L 500.4050, L100.0100 ####[facility] [address] [place], [address] WBC (Bld) [#/Vol] 4.7 10*3/uL Normal 4.4-11.0 [facility] Comment on above: Performed By: #### L 500.4050, L100.0100 ####[facility] [address] [place], [address] Chest without Contraston Chest without Contrast Normal [facility] Comprehensive Metabolic Prof ilon 09-02-2024 Albumin [Mass/Vol] 3.4 g/dL Normal 3.4-4.8 [facility] Comment on above: Performed By: #### L 500.4050, L100.0100 ####[facility] [address] [place], [address] Albumin/Globulin [Mass ratio] 0.9 {ratio} Normal 0.9-2.4 [facility] Comment on above: Performed By: #### L 500.4050, L100.0100 ####[facility] [address] [place], [address] ALK PHOS 117 U/L Normal 40-129 [facility] Comment on above: Performed By: #### L 500.4050, L100.0100 ####[facility] [address] [place], [address] ALT [Catalytic activity/Vol] 13 U/L Normal <=46 [facility] Comment on above: Performed By: #### L 500.4050, L100.0100 ####[facility] [address] [place], [address] AST [Catalytic activity/Vol] 21 U/L Normal <=37 [facility] Comment on above: Result Comment: Hemo lysis present, Results??could be affected.?? Performed By: #### L 500.4050, L100.0100 ####[facility] [address] [place], [address] Bilirubin [Mass/Vol] 0.55 mg/dL Normal 0.00-1.30 [facility] Comment on above: Performed By: #### L 500.4050, L100.0100 ####[facility] [address] [place], [address] BUN/CRE 26.4 RATIO High 10-20 [facility] Comment on above: Performed By: #### L 500.4050, L100.0100 ####[facility] [address] [place], [address] Calcium [Mass/Vol] 8.6 mg/dL Normal 7.6-11.0 [facility] Comment on above: Performed By: #### L 500.4050, L100.0100 ####[facility] [address] [place], [address] Chloride [Moles/Vol] 103 mmol/L Normal 98-108 [facility] Comment on above: Performed By: #### L 500.4050, L100.0100 ####[facility] [address] [place], [address] CO2 [Moles/Vol] 20.1 mmol/L Low 21.0-32.0 [facility] Comment on above: Performed By: #### L 500.4050, L100.0100 ####[facility] [address] [place], [address] Creatinine [Mass/Vol] 0.73 mg/dL Normal 0.70-1.20 [facility] Comment on above: Performed By: #### L 500.4050, L100.0100 ####[facility] [address] [place], [address] ECRCL 104.33 ml/min Normal 50-250 [facility] Comment on above: Performed By: #### L 500.4050, L100.0100 ####[facility] [address] [place], [address] GAP 11 Normal 5-15 [facility] Comment on above: Performed By: #### L 500.4050, L100.0100 ####[facility] [address] [place], [address] GFR/1.73 sq M.predicted among non-blacks MDRD (S/P/Bld) [Vol rate/Area] 94 mL/min/{1.73_m2} Normal >60 [facility] Comment on above: Result Comment: mL/m in/1.73m2 CKD-EPI Creatinine Equation (2020) Performed By: #### L 500.4050, L100.0100 ####[facility] [address] [place], [address] Globulin (S) [Mass/Vol] 3.9 g/dL Normal 2.2-4.2 [facility] Comment on above: Performed By: #### L 500.4050, L100.0100 ####[facility] [address] [place], [address] Glucose [Mass/Vol] 154 mg/dL High 70-99 [facility] Comment on above: Performed By: #### L 500.4050, L100.0100 ####[facility] [address] [place], [address] Potassium [Moles/Vol] 4.0 mmol/L Normal 3.3-5.1 [facility] Comment on above: Result Comment: Hemo lysis present, Results??could be affected.?? Performed By: #### L 500.4050, L100.0100 ####[facility] [address] [place], [address] Sodium [Moles/Vol] 134 mmol/L Normal 133-145 [facility] Comment on above: Performed By: #### L 500.4050, L100.0100 ####[facility] [address] [place], [address] T PROT 7.3 g/dL Normal 5.9-8.4 [facility] Comment on above: Performed By: #### L 500.4050, L100.0100 ####[facility] [address] [place], [address] Urea nitrogen [Mass/Vol] 19 mg/dL Normal 4-19 [facility] Comment on above: Performed By: #### L 500.4050, L100.0100 ####[facility] [address] [place], [address] L. pneumophila Ag Ql (U)Orde red By: Shonda Gaston on 09-02-2024 Legionella Antigen [facility] L499.0043on 09-02-2024 Trop T High Sen 21 ng/L Normal <=22 [facility] Comment on above: Performed By: #### L 499.0043 ####[facility] [address] [place], [address] L503.7505on 09-02-2024 Natriuretic peptide B (Bld) [Mass/Vol] 1097 pg/mL Normal <=1800 [facility] Comment on above: Result Comment: Hear t Failure Unlikely: < 300 pg/mLHeart Failure Likely< 50 Years: > 450 pg/mL50-75 Years: > 900 pg/mL>75 Years: > 1800 pg/mL Performed By: #### L 503.7506 ####[facility] [address] [place], [place], [address] L509.7001on 09-02-2024 Procalcitonin < 0.02 Normal <=0.10 [facility] Comment on above: Order Comment: Comme nts: may add to ED labs Result Comment: Inte rpretation:<0.10-0.25 ng/mL: Antibiotic therapy discouraged. Bacterialinfection unlikely.0.25-0.50 ng/mL: Antibiotic therapy encouraged. Bacterialinfection possible.>0.50 ng/mL: Antibiotic therapy strongly encouraged.Suggestive of presence of bacterial infection.PCT should always be interpreted in the clinical context ofthe patient. Therefore, clinicians should use the PCTresults in conjunction with other laboratory findings andclinical signs of the patient. Performed By: #### L 501.5209, [id number] ####[facility] [address] [place], [place], [address] Laboratory - Chemistry and C hemistry - challengeOrdered By: Shonda Gaston on 09-02-2024 AST [Catalytic activity/Vol] 21 U/L <38 [facility] Comment on above: Hemolysis present, R esults could be affected. Laboratory - Chemistry and C hemistry - challengeOrdered By: Wood Braxton on 09-02-2024 Natriuretic peptide B (Bld) [Mass/Vol] 1097 pg/mL <1800 [facility] Comment on above: Heart Failure Unlike ly: < 300 pg/mLHeart Failure Likely< 50 Years: > 450 pg/mL50-75 Years: > 900 pg/mL>75 Years: > 1800 pg/mL Magnesiumon 09-02-2024 Magnesium [Mass/Vol] 1.9 mg/dL Normal 1.5-2.2 [facility] Comment on above: Order Comment: Comme nts: may add to ED labs Performed By: #### L 501.5200, L509.7001 ####[facility] [address] [place], [place], [address] No Panel InformationOrdered By: Shonda Gaston on 09-02-2024 21 U/L <38 [facility] No Panel InformationOrdered By: Wood Braxton on 09-02-2024 1097 pg/mL <1800 [facility] RESPIRATORY PANEL MOLECULARo n 09-02-2024 RP PANEL Normal [facility] Comment on above: Performed By: #### M 100.638 ####[facility] [address] [facility] [address] [place], [place], [id number] Serum globulin measurementOr dered By: Shonda Gaston on 09-02-2024 Globulin (S) [Mass/Vol] 3.9 g/dL 2.2-4.2 [facility] Serum or plasma alanine grace otransferase (ALT) measurementOrdered By: Shonda Gaston on 09-02-2024 ALT [Catalytic activity/Vol] 13 U/L <47 [facility] Serum or plasma albumin shweta urement (mass/volume)Ordered By: Shonda Gaston on 09-02-2024 Albumin [Mass/Vol] 3.4 g/dL 3.4-4.8 [facility] Serum or plasma albumin/glob ulin mass ratioOrdered By: Shonda Gaston 09-02-2024 Albumin/Globulin [Mass ratio] 0.9 {ratio} 0.9-2.4 [facility] Serum or plasma alkaline gibson sphatase measurementOrdered By: Shonda Gaston on 09-02-2024 ALP [Catalytic activity/Vol] 117 U/L 40-129 [facility] Streptococcus pneumoniae ant igen assayOrdered By: Shonda Gaston on 09-02-2024 Streptococcus pneumoniae Antigen (M [facility] Total proteinOrdered By: Kimberlee Gaston on 09-02-2024 Protein [Mass/Vol] 7.3 g/dL 5.9-8.4 [facility] Urine Legionella pneumophila antigen detectionOrdered By: Shonda Gaston on 09-02-2024 L. pneumophila Ag Ql (U) [facility] 12 Lead EKGon 09-01-2024 12 Lead EKG Normal [facility] Abdomen Single View (Portabl e)on 09-01-2024 Abdomen Single View (Portable) Normal [facility] Absolute neutrophil countOrd ered By: Jessi Calloway on 09-01-2024 Neutrophils (Bld) [#/Vol] 3.8 10*3/uL 2.0-7.7 [facility] Anion gap in Serum or Plasma Ordered By: Jessi Calloway on 09-01-2024 Anion gap [Moles/Vol] 12 mmol/L 5-15 [facility] BUN/creatinine ratioOrdered By: Jessi Calloway on 09-01-2024 Urea nitrogen/Creatinine [Mass ratio] 25.9 mg/mg High 10-20 [facility] Basic Metabolic Profile (BMP )on 09-01-2024 BUN/CRE 25.9 RATIO High 10- [facility] Comment on above: Performed By: #### L 501.4021, L501.2450, L500.2500, L100.0100 ####[facility] [address] [place], [address] Calcium [Mass/Vol] 9.2 mg/dL Normal 7.6-11.0 [facility] Comment on above: Performed By: #### L 501.4021, L501.2450, L500.2500, L100.0100 ####[facility] [address] [place], [address] Chloride [Moles/Vol] 102 mmol/L Normal 98-108 [facility] Comment on above: Performed By: #### L 501.4021, L501.2450, L500.2500, L100.0100 ####[facility] [address] [place], [address] CO2 [Moles/Vol] 22.6 mmol/L Normal 21.0-32.0 [facility] Comment on above: Performed By: #### L 501.4021, L501.2450, L500.2500, L100.0100 ####[facility] [address] [place], [address] Creatinine [Mass/Vol] 0.88 mg/dL Normal 0.70-1.20 [facility] Comment on above: Performed By: #### L 501.4021, L501.2450, L500.2500, L100.0100 ####[facility] [address] [place], [address] ECRCL 95.25 ml/min Normal 50-250 [facility] Comment on above: Performed By: #### L 501.4021, L501.2450, L500.2500, L100.0100 ####[facility] [address] [place], [address] GAP 12 Normal 5-15 [facility] Comment on above: Performed By: #### L 501.4021, L501.2450, L500.2500, L100.0100 ####[facility] [address] [place], [address] GFR/1.73 sq M.predicted among non-blacks MDRD (S/P/Bld) [Vol rate/Area] 89 mL/min/{1.73_m2} Normal >60 [facility] Comment on above: Result Comment: mL/m in/1.73m2 CKD-EPI Creatinine Equation (2020) Performed By: #### L 501.4021, L501.2450, L500.2500, L100.0100 ####[facility] [address] [place], [address] Glucose [Mass/Vol] 165 mg/dL High 70-99 [facility] Comment on above: Performed By: #### L 501.4021, L501.2450, L500.2500, L100.0100 ####[facility] [address] [place], [address] Potassium [Moles/Vol] 4.4 mmol/L Normal 3.3-5.1 [facility] Comment on above: Performed By: #### L 501.4021, L501.2450, L500.2500, L100.0100 ####[facility] [address] [place], [address] Sodium [Moles/Vol] 136 mmol/L Normal 133-145 [facility] Comment on above: Performed By: #### L 501.4021, L501.2450, L500.2500, L100.0100 ####[facility] [address] [place], [address] Urea nitrogen [Mass/Vol] 23 mg/dL High 4-19 [facility] Comment on above: Performed By: #### L 501.4021, L501.2450, L500.2500, L100.0100 ####[facility] [address] [place], [address] Basophil percentageOrdered B y: Jessi Calloway on 09-01-2024 Basophils/100 WBC (Bld) 0.4 % 0-1 [facility] CBC W/Diff, Automatedon Absolute Lymph 2.05 X10 3/uL Normal 0.83-4.51 [facility] Comment on above: Performed By: #### L 501.4021, L501.2450, L500.2500, L100.0100 ####[facility] [address] [place], [address] Absolute Neut 3.8 X10 3/uL Normal 2.0-7.7 [facility] Comment on above: Performed By: #### L 501.4021, L501.2450, L500.2500, L100.0100 ####[facility] [address] [place], [address] Basophils/100 WBC (Bld) 0.4 % Normal 0-1 [facility] Comment on above: Performed By: #### L 501.4021, L501.2450, L500.2500, L100.0100 ####[facility] [address] [place], [address] Eosinophils/100 WBC (Bld) 1.9 % Normal 0-5 [facility] Comment on above: Performed By: #### L 501.4021, L501.2450, L500.2500, L100.0100 ####[facility] [address] [place], [address] Erythrocyte distribution width (RBC) [Ratio] 14.2 % Normal 11.6-14.6 [facility] Comment on above: Performed By: #### L 501.4021, L501.2450, L500.2500, L100.0100 ####[facility] [address] [place], [address] Hematocrit (Bld) [Volume fraction] 35.0 % Low 40-54 [facility] Comment on above: Performed By: #### L 501.4021, L501.2450, L500.2500, L100.0100 ####[facility] [address] [place], [address] Hemoglobin (Bld) [Mass/Vol] 11.4 g/dL Low 13.0-16.5 [facility] Comment on above: Performed By: #### L 501.4021, L501.2450, L500.2500, L100.0100 ####[facility] [address] [place], [address] IG% 0.700 Normal 0.0-0.9 [facility] Comment on above: Result Comment: IG% - Immature Granulocytes (promyelocytes, myelocytes andmetamyelocytes) > 1% indicates that a LEFT SHIFT is Present. Performed By: #### L 501.4021, L501.2450, L500.2500, L100.0100 ####[facility] [address] [place], [address] Lymphocytes/100 WBC (Bld) 30.1 % Normal 19-41 [facility] Comment on above: Performed By: #### L 501.4021, L501.2450, L500.2500, L100.0100 ####[facility] [address] [place], [address] MCH (RBC) [Entitic mass] 30.9 pg Normal 27.0-32.0 [facility] Comment on above: Performed By: #### L 501.4021, L501.2450, L500.2500, L100.0100 ####[facility] [address] [place], [address] MCHC (RBC) [Mass/Vol] 32.6 g/dL Normal 32-36 [facility] Comment on above: Performed By: #### L 501.4021, L501.2450, L500.2500, L100.0100 ####[facility] [address] [place], [address] MCV (RBC) [Entitic vol] 94.9 fL High 80-94 [facility] Comment on above: Performed By: #### L 501.4021, L501.2450, L500.2500, L100.0100 ####[facility] [address] [place], [address] Monocytes/100 WBC (Bld) 10.7 % High 0-10 [facility] Comment on above: Performed By: #### L 501.4021, L501.2450, L500.2500, L100.0100 ####[facility] [address] [place], [address] Neutrophils/100 WBC (Bld) 56.2 % Normal 47-70 [facility] Comment on above: Performed By: #### L 501.4021, L501.2450, L500.2500, L100.0100 ####[facility] [address] [place], [address] Nucleated RBC (Bld) [#/Vol] 0 10*3/uL Normal 0-5 [facility] Comment on above: Performed By: #### L 501.4021, L501.2450, L500.2500, L100.0100 ####[facility] [address] [place], [address] Platelet mean volume (Bld) [Entitic vol] 12.8 fL High 6.2-12.0 [facility] Comment on above: Performed By: #### L 501.4021, L501.2450, L500.2500, L100.0100 ####[facility] [address] [place], [address] Platelets (Bld) [#/Vol] 131 10*3/uL Low 150-450 [facility] Comment on above: Performed By: #### L 501.4021, L501.2450, L500.2500, L100.0100 ####[facility] [address] [place], [address] RBC (Bld) [#/Vol] 3.69 10*6/uL Low 4.6-6.2 [facility] Comment on above: Performed By: #### L 501.4021, L501.2450, L500.2500, L100.0100 ####[facility] [address] [place], [address] RDW SD 49.3 fl High 35.1-43.9 [facility] Comment on above: Performed By: #### L 501.4021, L501.2450, L500.2500, L100.0100 ####[facility] [address] [place], [address] WBC (Bld) [#/Vol] 6.8 10*3/uL Normal 4.4-11.0 [facility] Comment on above: Performed By: #### L 501.4021, L501.2450, L500.2500, L100.0100 ####[facility] [address] [place], [address] Carbon dioxide, total [Moles /volume] in Central venous bloodOrdered By: Jessi Calloway on 09-01-2024 CO2 [Moles/Vol] 22.6 mmol/L 21.0-32.0 [facility] Cardiology Visit Reporton Cardiology Visit Report Normal [facility] Chest PA and Lateralon 09-01 Chest PA and Lateral Normal [facility] Chloride assayOrdered By: Oscar Calloway on 09-01-2024 Chloride [Moles/Vol] 102 mmol/L 98-108 [facility] Emergency Department Summary on 09-01-2024 Emergency Department Summary Normal [facility] Eosinophil percentageOrdered By: Jessi Calloway on 09-01-2024 Eosinophils/100 WBC (Bld) 1.9 % 0-5 [facility] Erythrocyte distribution wid th (RBC) [Ratio]Ordered By: Jessi Calloway on 09-01-2024 Erythrocyte distribution width (RBC) [Entitic vol] 49.3 fL High 35.1-43.9 [facility] Erythrocyte distribution wid th ratioOrdered By: Jessi Calloway on 09-01-2024 Erythrocyte distribution width (RBC) [Ratio] 14.2 % 11.6-14.6 [facility] Estimation of creatinine dennys aranceOrdered By: Jessi Calloway on 09-01-2024 Estimated Creatinine Clearance Calc 95.25 ml/min 50-250 [facility] GFR/1.73 sq M.predicted mikayla g non-blacks MDRD (S/P/Bld) [Vol rate/Area]Ordered By: Jessi Calloway on 09-01-2024 Estimated GFR (MDRD) Non-Af Amer 89 >60 [facility] Comment on above: mL/min/1.73m2 CKD-EP I Creatinine Equation (2020) H AND P Exam - Hospitaliston 09-01-2024 H&P Exam - Hospitalist Normal [facility] Hematocrit Auto (Bld) [Volum e fraction]Ordered By: Jessi Calloway on 09-01-2024 Hematocrit (Bld) [Volume fraction] 35.0 % Low 40-54 [facility] Hemoglobin measurementOrdere d By: Jessi Calloway on 09-01-2024 Hemoglobin (Bld) [Mass/Vol] 11.4 g/dL Low 13.0-16.5 [facility] Immature granulocytes/100 WB C Auto (Bld)Ordered By: Jessi Calloway on 09-01-2024 Immature granulocytes/100 WBC (Bld) 0.700 % 0.0-0.9 [facility] Comment on above: IG% - Immature Granu locytes (promyelocytes, myelocytes and metamyelocytes) > 1% indicates that a LEFT SHIFT is Present. L499.0042on 09-01-2024 Trop T High Sen 20 ng/L Normal <=22 [facility] Comment on above: Performed By: #### L 499.0042 ####[facility] [address] [place], [address] L501.4021on 09-01-2024 Trop T High Sen 23 ng/L High <=22 [facility] Comment on above: Performed By: #### L 501.4021, L501.2450, L500.2500, L100.0100 ####[facility] [address] [place], [address] Lipaseon 09-01-2024 Lipase [Catalytic activity/Vol] 21 U/L Normal 13-75 [facility] Comment on above: Result Comment: Marcelle fritz note:LIPASE revised reference range effective 22.New Lipase methodology. Expected to produce lower valuesthan the previous assay method.NEW Reference Range: 13 - 75 U/L Performed By: #### L 501.4021, L501.2450, L500.2500, L100.0100 ####[facility] [address] [place], [address] Lipase measurementOrdered By : Jessi Calloway on 09-01-2024 Lipase [Catalytic activity/Vol] 21 U/L 13-75 [facility] Comment on above: Please note:LIPASE r evised reference range effective 22. New Lipase methodology. Expected to produce lower values than the previous assay method. NEW Reference Range: 13 - 75 U/L Lymphocytes Auto (Unsp spec) [#/Vol]Ordered By: Jessi Calloway on 09-01-2024 Lymphocytes (Bld) [#/Vol] 2.05 10*3/uL 0.83-4.51 [facility] Lymphocytes/100 WBC Auto (Un sp spec)Ordered By: Jessi Calloway on 09-01-2024 Lymphocytes/100 WBC (Bld) 30.1 % 19-41 [facility] MCV (mean corpuscular volume ) determinationOrdered By: Jessi Calloway on 09-01-2024 MCV (RBC) [Entitic vol] 94.9 fL High 80-94 [facility] Mean corpuscular hemoglobin (MCH) determinationOrdered By: Jessi Calloway on 09-01-2024 MCH (RBC) [Entitic mass] 30.9 pg 27.0-32.0 [facility] Mean corpuscular hemoglobin concentration (MCHC) determinationOrdered By: Jessi Calloway on 09-01-2024 MCHC (RBC) [Mass/Vol] 32.6 g/dL 32-36 [facility] Mean platelet volume determi nationOrdered By: Jessi Calloway on 09-01-2024 Platelet mean volume (Bld) [Entitic vol] 12.8 fL High 6.2-12.0 [facility] Monocyte percentageOrdered B y: Jessi Calloway on 09-01-2024 Monocytes/100 WBC (Bld) 10.7 % High 0-10 [facility] Neutrophil percentageOrdered By: Jessikendall Calloway on 09-01-2024 Neutrophils/100 WBC (Bld) 56.2 % 47-70 [facility] No Panel InformationOrdered By: Shonda Gaston on 09-01-2024 Procalcitonin < 0.02 ng/mL <0.11 [facility] Comment on above: Interpretation:<0.10 -0.25 ng/mL: Antibiotic therapy discouraged. Bacterial infection unlikely.0.25-0.50 ng/mL: Antibiotic therapy encouraged. Bacterial infection possible.>0.50 ng/mL: Antibiotic therapy strongly encouraged. Suggestive of presence of bacterial infection.PCT should always be interpreted in the clinical context of the patient. Therefore, clinicians should use the PCT results in conjunction with other laboratory findings and clinical signs of the patient. < 0.02 ng/mL <0.11 [facility] No Panel InformationOrdered By: Jessi Calloway on 09-01-2024 Troponin T High Sensitivity 23 ng/L High <22 [facility] 23 ng/L High <22 [facility] Nucleated red blood cell per centageOrdered By: Jessi Calloway on 09-01-2024 Nucleated RBC/100 WBC (Bld) [Ratio] 0 % 0-5 [facility] Platelet countOrdered By: Oscar Calloway on 09-01-2024 Platelets (Bld) [#/Vol] 131 10*3/uL Low 150-450 [facility] Potassium (Unsp spec) [Mass/ Vol]Ordered By: Jessi Calloway on 09-01-2024 Potassium [Moles/Vol] 4.4 mmol/L 3.3-5.1 [facility] RBC Auto (Bld) [#/Vol]Ordere d By: Jessi Calloway on 09-01-2024 RBC (Bld) [#/Vol] 3.69 10*6/uL Low 4.6-6.2 [facility] Respiratory pathogens DNA an d RNA panel ZOE+probe (Resp)Ordered By: Shonda Gaston on 09-01-2024 Respiratory Panel (PCR) [facility] Respiratory pathogens detect ion panel by molecular detection methodOrdered By: Shonda Alek on 09-01-2024 Respiratory pathogens DNA and RNA panel ZOE+probe (Resp) [facility] Serum creatinine measurement (mass/volume)Ordered By: Jessi Calloway on 09-01-2024 Creatinine [Mass/Vol] 0.88 mg/dL 0.70-1.20 [facility] Serum glucose measurement (m ass/volume)Ordered By: Jessi Calloway on 09-01-2024 Glucose [Mass/Vol] 165 mg/dL High 70-99 [facility] Serum or plasma calcium shweta urement (mass/volume)Ordered By: Jessi Calloway on 09-01-2024 Calcium [Mass/Vol] 9.2 mg/dL 7.6-11.0 [facility] Serum or plasma urea nitroge n measurement (mass/volume)Ordered By: Jessi Calloway on 09-01-2024 Urea nitrogen [Mass/Vol] 23 mg/dL High 4-19 [facility] Sodium levelOrdered By: Jessi Calloway on 09-01-2024 Sodium [Moles/Vol] 136 mmol/L 133-145 [facility] Troponin T.cardiac High sens itivity method [Mass/Vol]Ordered By: Jessi Calloway on 09-01-2024 Troponin T High Sensitivity 4 Hour 21 ng/L <22 [facility] Troponin T High Sensitivity 2 Hour 20 ng/L <22 [facility] Troponin T.cardiac [Mass/vol ume] in Serum or Plasma by High sensitivity methodOrdered By: Jessi Calloway on 09-01-2024 Troponin T.cardiac High sensitivity method [Mass/Vol] 21 ng/L <22 [facility] Troponin T.cardiac High sensitivity method [Mass/Vol] 20 ng/L <22 [facility] White blood cell (WBC) count Ordered By: Jessi Calloway on 09-01-2024 WBC (Bld) [#/Vol] 6.8 10*3/uL 4.4-11.0 [facility] Pulmonary Visit Reporton Pulmonary Visit Report Normal [facility] Platelet countOrdered By: Nitin Toure on 07-17-2024 Platelets (Bld) [#/Vol] 210 10*3/uL 150-450 [facility] Bilirubin directOrdered By: Danni Davis on 07-10-2024 Bilirubin.direct [Mass/Vol] 0.42 mg/dL High 0.00-0.30 [facility] Bilirubin, totalOrdered By: Danni Davis on 07-10-2024 Bilirubin [Mass/Vol] 1.00 mg/dL 0.20-1.00 [facility] Comment on above: For patients on eltr ombopag therapy, use of Dimension Rulo TBIL is not recommended. High density lipoprotein (HD L) measurementOrdered By: Danni Davis on 02-07-2025 Cholesterol in HDL [Mass/Vol] 58 mg/dL >40 [facility] Comment on above: The drugs N-Acetylcy steine and Metamizole may falsely depress this assay. Reference Range HDL <40 mg/dL Low HDL Cholesterol HDL >or= 60 mg/dL High HDL Cholesterol High density lipoprotein (HDL) measurement 58 mg/dL >40 [facility] Laboratory - Chemistry and C hemistry - challengeOrdered By: Danni Davis on 07-10-2024 AST [Catalytic activity/Vol] 23 U/L 15-37 [facility] Lipid Profileon 07-10-2024 Cholesterol [Mass/Vol] 116 mg/dL Normal 200 [facility] Comment on above: Result Comment: <200 mg/dL Desirable 200-240 mg/dL Borderline >240 mg/dL High Risk Performed By: #### L 500.3400, L500.4100 ####[facility] [address] [place], [address] Cholesterol in HDL [Mass/Vol] 58 mg/dL Normal [facility] Comment on above: Result Comment: The drugs N-Acetylcysteine and Metamizole may falselydepress this assay. Reference Range HDL <40 mg/dL Low HDL Cholesterol HDL >or= 60 mg/dL High HDL Cholesterol Performed By: #### L 500.3400, L500.4100 ####[facility] [address] [place], [address] Cholesterol in LDL [Mass/Vol] 42 mg/dL Normal 0-130 [facility] Comment on above: Performed By: #### L 500.3400, L500.4100 ####[facility] [address] [place], [address] Cholesterol in VLDL [Mass/Vol] 16 mg/dL Normal 5-40 [facility] Comment on above: Performed By: #### L 500.3400, L500.4100 ####[facility] [address] [place], [address] Triglyceride [Mass/Vol] 82 mg/dL Normal [facility] Comment on above: Result Comment: The drugs N-Acetylcysteine and Metamizole may falselydepress this assay.Serum Triglycerides Reference Interval Normal <150 mg/dL Borderline high 150 - 199 mg/dL High 200 - 499 mg/dL Very High > or = 500 mg/dL Performed By: #### L 500.3400, L500.4100 ####[facility] [address] [place], [address] Liver Profileon 07-10-2024 Albumin [Mass/Vol] 2.7 g/dL Low 3.2-5.0 [facility] Comment on above: Performed By: #### L 500.3400, L500.4100 ####[facility] [address] [place], [address] ALK P 153 U/L High 45-117 [facility] Comment on above: Performed By: #### L 500.3400, L500.4100 ####[facility] [address] [place], [address] ALT [Catalytic activity/Vol] 18 U/L Normal 16-61 [facility] Comment on above: Performed By: #### L 500.3400, L500.4100 ####[facility] [address] [place], [address] AST [Catalytic activity/Vol] 23 U/L Normal 15-37 [facility] Comment on above: Performed By: #### L 500.3400, L500.4100 ####[facility] [address] [place], [address] Bilirubin [Mass/Vol] 1.00 mg/dL Normal 0.20-1.00 [facility] Comment on above: Result Comment: For patients on eltrombopag therapy, use of Dimension Rulo TBIL is not recommended. Performed By: #### L 500.3400, L500.4100 ####[facility] [address] [place], [address] Bilirubin.direct [Mass/Vol] 0.42 mg/dL High 0.00-0.30 [facility] Comment on above: Performed By: #### L 500.3400, L500.4100 ####[facility] [address] [place], [address] Globulin (S) [Mass/Vol] 4.7 g/dL High 2.2-4.2 [facility] Comment on above: Performed By: #### L 500.3400, L500.4100 ####[facility] [address] [place], [address] T PROT 7.4 g/dL Normal 6.4-8.2 [facility] Comment on above: Performed By: #### L 500.3400, L500.4100 ####[facility] [address] [place], [address] Low density lipoprotein (LDL ) cholesterol measurementOrdered By: Danni Davis on 07-10-2024 Cholesterol in LDL [Mass/Vol] 42 mg/dL 0-130 [facility] Low density lipoprotein (LDL) cholesterol measurement 42 mg/dL 0-130 [facility] No Panel InformationOrdered By: Danni Davis on 07-10-2024 23 U/L 15-37 [facility] Serum globulin measurementOr dered By: Danni Davis on 07-10-2024 Globulin (S) [Mass/Vol] 4.7 g/dL High 2.2-4.2 [facility] Serum or plasma alanine grace otransferase (ALT) measurementOrdered By: Danni Davis on 07-10-2024 ALT [Catalytic activity/Vol] 18 U/L 16-61 [facility] Serum or plasma albumin shweta urement (mass/volume)Ordered By: Danni Davis on 07-10-2024 Albumin [Mass/Vol] 2.7 g/dL Low 3.2-5.0 [facility] Serum or plasma alkaline gibson sphatase measurementOrdered By: Danni Davis on 07-10-2024 ALP [Catalytic activity/Vol] 153 U/L High 45-117 [facility] Serum or plasma cholesterol measurement (mass/volume)Ordered By: Danni Davis on 07-10-2024 Cholesterol [Mass/Vol] 116 mg/dL <200 [facility] Comment on above: <200 mg/dL Desirable 200-240 mg/dL Borderline >240 mg/dL High Risk Total proteinOrdered By: Luca Davis on 07-10-2024 Protein [Mass/Vol] 7.4 g/dL 6.4-8.2 [facility] Triglycerides measurementOrd ered By: Danni Davis on 07-10-2024 Triglyceride [Mass/Vol] 82 mg/dL <199 [facility] Comment on above: The drugs N-Acetylcy steine and Metamizole may falsely depress this assay.Serum Triglycerides Reference Interval Normal <150 mg/dL Borderline high 150 - 199 mg/dL High 200 - 499 mg/dL Very High > or = 500 mg/dL Very low density lipoprotein (VLDL) cholesterol measurementOrdered By: Danni Davis on 07-10-2024 Very low density lipoprotein (VLDL) cholesterol measurement 16 mg/dL 5-40 [facility] VLDL Cholesterol 16 mg/dL 5-40 [facility] 12 Lead EKGon 07-07-2024 12 Lead EKG Normal [facility] Absolute lymphocyte countOrd ered By: Dhiraj Carlton on 07-07-2024 Lymphocytes Auto (Unsp spec) [#/Vol] 1.48 10*3/uL 0.83-4.51 [facility] Absolute neutrophil countOrd ered By: Dhiraj Carlton on 07-07-2024 Neutrophils (Bld) [#/Vol] 3.8 10*3/uL 2.0-7.7 [facility] Activated partial thrombopla stin time (aPTT) in platelet poor plasma by coagulation aOrdered By: Dhiraj Carlton on 07-07-2024 aPTT Coag (PPP) [Time] 39.3 s High 24.1-36.2 [facility] Automated lymphocyte count a s percentage of total leukocytesOrdered By: Dhiraj Carlton on 07-07-2024 Lymphocytes/100 WBC Auto (Unsp spec) 24.6 % 19-41 [facility] Basic Metabolic Profile (BMP )on 07-07-2024 BUN/CRE 18.6 RATIO Normal 10-20 [facility] Comment on above: Performed By: #### L 100.0100, L500.3400, L501.2450, L503.6005, L300.4310, L501.5200, L300.3900, L500.2500 ####[facility] [address] [place], [address] CA,Total 8.9 mg/dL Normal 8.5-10.1 [facility] Comment on above: Performed By: #### L 100.0100, L500.3400, L501.2450, L503.6005, L300.4310, L501.5200, L300.3900, L500.2500 ####[facility] [address] [place], [address] Chloride [Moles/Vol] 102 mmol/L Normal 98-107 [facility] Comment on above: Performed By: #### L 100.0100, L500.3400, L501.2450, L503.6005, L300.4310, L501.5200, L300.3900, L500.2500 ####[facility] [address] [place], [address] CO2 [Moles/Vol] 28.0 mmol/L Normal 21.0-32.0 [facility] Comment on above: Performed By: #### L 100.0100, L500.3400, L501.2450, L503.6005, L300.4310, L501.5200, L300.3900, L500.2500 ####[facility] [address] [place], [address] Creatinine [Mass/Vol] 1.02 mg/dL Normal 0.70-1.30 [facility] Comment on above: Result Comment: The validity of the calculated GFR GFRAA in patients over70 years has not been determined. Clinical correlation isessential. Performed By: #### L 100.0100, L500.3400, L501.2450, L503.6005, L300.4310, L501.5200, L300.3900, L500.2500 ####[facility] [address] [place], [address] ECRCL 83.71 ml/min Normal [facility] Comment on above: Performed By: #### L 100.0100, L500.3400, L501.2450, L503.6005, L300.4310, L501.5200, L300.3900, L500.2500 ####[facility] [address] [place], [address] EST GFR - AA 91 mL/min Normal >60 [facility] Comment on above: Result Comment: Afri can Belarusian GFR Calc Performed By: #### L 100.0100, L500.3400, L501.2450, L503.6005, L300.4310, L501.5200, L300.3900, L500.2500 ####[facility] [address] [place], [address] GAP 8 Normal 5-15 [facility] Comment on above: Performed By: #### L 100.0100, L500.3400, L501.2450, L503.6005, L300.4310, L501.5200, L300.3900, L500.2500 ####[facility] [address] [place], [address] GFR/1.73 sq M.predicted among non-blacks MDRD (S/P/Bld) [Vol rate/Area] 75 mL/min/{1.73_m2} Normal >60 [facility] Comment on above: Result Comment: Non- GFR Calc Performed By: #### L 100.0100, L500.3400, L501.2450, L503.6005, L300.4310, L501.5200, L300.3900, L500.2500 ####[facility] [address] [place], [address] Glucose [Mass/Vol] 137 mg/dL High 74-106 [facility] Comment on above: Result Comment: Fast ing Glucose result greater than or equal to 126 mg/dLsuggests DIABETES MELLITUS per A.D.A. criteria. Performed By: #### L 100.0100, L500.3400, L501.2450, L503.6005, L300.4310, L501.5200, L300.3900, L500.2500 ####[facility] [address] [place], [address] Potassium [Moles/Vol] 3.8 mmol/L Normal 3.5-5.1 [facility] Comment on above: Performed By: #### L 100.0100, L500.3400, L501.2450, L503.6005, L300.4310, L501.5200, L300.3900, L500.2500 ####[facility] [address] [place], [address] Sodium [Moles/Vol] 138 mmol/L Normal 136-145 [facility] Comment on above: Performed By: #### L 100.0100, L500.3400, L501.2450, L503.6005, L300.4310, L501.5200, L300.3900, L500.2500 ####[facility] [address] [place], [address] Urea nitrogen [Mass/Vol] 19 mg/dL High 7-18 [facility] Comment on above: Performed By: #### L 100.0100, L500.3400, L501.2450, L503.6005, L300.4310, L501.5200, L300.3900, L500.2500 ####[facility] [address] [place], [address] Basophil percentageOrdered B y: Dhiraj Carlton on 07-07-2024 Basophils/100 WBC (Bld) 0.7 % 0-1 [facility] Bilirubin directOrdered By: Dhiraj Carlton on 07-07-2024 Bilirubin.direct [Mass/Vol] 0.43 mg/dL High 0.00-0.30 [facility] Bilirubin, totalOrdered By: Dhiraj Carlton on 07-07-2024 Bilirubin [Mass/Vol] 1.00 mg/dL 0.20-1.00 [facility] Comment on above: For patients on eltr ombopag therapy, use of Dimension Rulo TBIL is not recommended. Blood urea nitrogen (BUN)/cr eatinine ratioOrdered By: Dhiraj Cralton on 07-07-2024 Urea nitrogen/Creatinine [Mass ratio] 18.6 mg/mg 10-20 [facility] CBC W/Diff, Automatedon Absolute Lymph 1.48 X10 3/uL Normal 0.83-4.51 [facility] Comment on above: Performed By: #### L 100.0100, L500.3400, L501.2450, L503.6005, L300.4310, L501.5200, L300.3900, L500.2500 ####[facility] [address] [place], [address] Absolute Neut 3.8 X10 3/uL Normal 2.0-7.7 [facility] Comment on above: Performed By: #### L 100.0100, L500.3400, L501.2450, L503.6005, L300.4310, L501.5200, L300.3900, L500.2500 ####[facility] [address] [place], [address] Basophils/100 WBC (Bld) 0.7 % Normal 0-1 [facility] [facility] Comment on above: Performed By: #### L 100.0100, L500.3400, L501.2450, L503.6005, L300.4310, L501.5200, L300.3900, L500.2500 ####[facility] [place] [address] [facility] [address] Eosinophils/100 WBC (Bld) 2.0 % Normal 0-5 [facility] [place] Comment on above: Performed By: #### L 100.0100, L500.3400, L501.2450, L503.6005, L300.4310, L501.5200, L300.3900, L500.2500 ####[facility] [place] [address] [place], [address] Erythrocyte distribution width (RBC) [Ratio] 16.0 % High 11.6-14.6 [facility] [place] Comment on above: Performed By: #### L 100.0100, L500.3400, L501.2450, L503.6005, L300.4310, L501.5200, L300.3900, L500.2500 ####[facility] [address] [place], [address] Hematocrit (Bld) [Volume fraction] 34.3 % Low 40-54 [facility] [place] Comment on above: Performed By: #### L 100.0100, L500.3400, L501.2450, L503.6005, L300.4310, L501.5200, L300.3900, L500.2500 ####[facility] [place] [address] [place], [address] Hemoglobin (Bld) [Mass/Vol] 11.1 g/dL Low 13.0-16.5 [facility] [place] Comment on above: Performed By: #### L 100.0100, L500.3400, L501.2450, L503.6005, L300.4310, L501.5200, L300.3900, L500.2500 ####[facility] [place] [address] [place], [address] IG% 1.500 High 0.0-0.9 [facility] [place] Comment on above: Result Comment: IG% - Immature Granulocytes (promyelocytes, myelocytes andmetamyelocytes) > 1% indicates that a LEFT SHIFT is Present. Performed By: #### L 100.0100, L500.3400, L501.2450, L503.6005, L300.4310, L501.5200, L300.3900, L500.2500 ####[facility] [place] [address] [place], [address] Lymphocytes/100 WBC (Bld) 24.6 % Normal 19-41 [facility] [place] Comment on above: Performed By: #### L 100.0100, L500.3400, L501.2450, L503.6005, L300.4310, L501.5200, L300.3900, L500.2500 ####[facility] [place] [address] [place], [address] MCH (RBC) [Entitic mass] 31.5 pg Normal 27.0-32.0 [facility] [place] Comment on above: Performed By: #### L 100.0100, L500.3400, L501.2450, L503.6005, L300.4310, L501.5200, L300.3900, L500.2500 ####[facility] [place] [address] [place], [address] MCHC (RBC) [Mass/Vol] 32.4 g/dL Normal 32-36 [facility] Comment on above: Performed By: #### L 100.0100, L500.3400, L501.2450, L503.6005, L300.4310, L501.5200, L300.3900, L500.2500 ####[facility] [place] [address] [place], [address] MCV (RBC) [Entitic vol] 97.4 fL High 80-94 [facility] [place] Comment on above: Performed By: #### L 100.0100, L500.3400, L501.2450, L503.6005, L300.4310, L501.5200, L300.3900, L500.2500 ####[facility] [place] [address] [place], [address] Monocytes/100 WBC (Bld) 8.5 % Normal 0-10 [facility] [place] Comment on above: Performed By: #### L 100.0100, L500.3400, L501.2450, L503.6005, L300.4310, L501.5200, L300.3900, L500.2500 ####[facility] [place] [address] [place], [address] Neutrophils/100 WBC (Bld) 62.7 % Normal 47-70 [facility] [place] Comment on above: Performed By: #### L 100.0100, L500.3400, L501.2450, L503.6005, L300.4310, L501.5200, L300.3900, L500.2500 ####[facility] [address] [place], [address] Nucleated RBC (Bld) [#/Vol] 0.5 10*3/uL Normal 0-5 [facility] [place] Comment on above: Performed By: #### L 100.0100, L500.3400, L501.2450, L503.6005, L300.4310, L501.5200, L300.3900, L500.2500 ####[facility] [place] [address] [place], [address] Platelet mean volume (Bld) [Entitic vol] 13.6 fL High 6.2-12.0 [facility] [place] Comment on above: Performed By: #### L 100.0100, L500.3400, L501.2450, L503.6005, L300.4310, L501.5200, L300.3900, L500.2500 ####[facility] [place] [address] [place], [address] Platelets (Bld) [#/Vol] 226 10*3/uL Normal 150-450 [facility] [place] Comment on above: Performed By: #### L 100.0100, L500.3400, L501.2450, L503.6005, L300.4310, L501.5200, L300.3900, L500.2500 ####[facility] [place] [address] [place], [address] RBC (Bld) [#/Vol] 3.52 10*6/uL Low 4.6-6.2 [facility] Comment on above: Performed By: #### L 100.0100, L500.3400, L501.2450, L503.6005, L300.4310, L501.5200, L300.3900, L500.2500 ####[facility] [place] [address] [place], [address] RDW SD 55.0 fl High 35.1-43.9 [facility] [place] Comment on above: Performed By: #### L 100.0100, L500.3400, L501.2450, L503.6005, L300.4310, L501.5200, L300.3900, L500.2500 ####[facility] [place] [address] [place], [address] WBC (Bld) [#/Vol] 6.0 10*3/uL Normal 4.4-11.0 [facility] Comment on above: Performed By: #### L 100.0100, L500.3400, L501.2450, L503.6005, L300.4310, L501.5200, L300.3900, L500.2500 ####[facility] [place] [address] [place], [address] CTA Chst, Abd, Pel W and/or WOon 07-07-2024 CTA Chst, Abd, Pel W and/or WO Normal [facility] [place] Carbon dioxide measurementOr dered By: Dhiraj Carlton on 07-07-2024 CO2 [Moles/Vol] 28.0 mmol/L 21.0-32.0 [facility] [place] Chloride measurementOrdered By: Dhiraj Carlton on 07-07-2024 Chloride [Moles/Vol] 102 mmol/L 98-107 [facility] Emergency Department Summary on 07-07-2024 Emergency Department Summary Normal [facility] [place] Eosinophil percentageOrdered By: Dhiraj Carlton on 07-07-2024 Eosinophils/100 WBC (Bld) 2.0 % 0-5 [facility] [place] Erythrocyte distribution wid th (RBC) [Ratio]Ordered By: Dhiraj Carlton on 07-07-2024 Erythrocyte distribution width (RBC) [Entitic vol] 55.0 fL High 35.1-43.9 [facility] [place] Erythrocyte distribution wid th ratioOrdered By: Dhiraj Carlton on 07-07-2024 Erythrocyte distribution width (RBC) [Ratio] 16.0 % High 11.6-14.6 [facility] [place] Erythrocyte distribution wid th standard deviationOrdered By: Dhiraj Carlton on 07-07-2024 Erythrocyte distribution width (RBC) [Ratio] 55.0 fl High 35.1-43.9 [facility] [place] Estimated glomerular filtrat ion rate (GFR) AmericanOrdered By: Dhiraj Carlton on 07-07-2024 Estimated GFR (MDRD) Amer 91 mL/min >60 [facility] [place] Comment on above: GFR Calc Estimation of creatinine dennys aranceOrdered By: Dhiraj Carlton on 07-07-2024 Estimated Creatinine Clearance Calc 83.71 ml/min [facility] [place] Glomerular filtration rate ( GFR) estimationOrdered By: Dhiraj Carlton on 07-07-2024 Estimated GFR (MDRD) Non-Af Amer 75 mL/min >60 [facility] [place] Comment on above: Non- GFR Calc GFR/1.73 sq M.predicted among non-blacks MDRD (S/P/Bld) [Vol rate/Area] 75 mL/min/{1.73_m2} >60 [facility] [place] Glucose measurementOrdered B y: Dhiraj Carlton on 07-07-2024 Glucose [Mass/Vol] 137 mg/dL High 74-106 [facility] Comment on above: Fasting Glucose resu lt greater than or equal to 126 mg/dL suggests DIABETES MELLITUS per A.D.A. criteria. Hematocrit Auto (Bld) [Volum e fraction]Ordered By: Dhiraj Carlton on 07-07-2024 Hematocrit (Bld) [Volume fraction] 34.3 % Low 40-54 [facility] [place] Hemoglobin measurementOrdere d By: Dhiraj Carlton on 07-07-2024 Hemoglobin (Bld) [Mass/Vol] 11.1 g/dL Low 13.0-16.5 [facility] [place] Immature granulocytes/100 WB C Auto (Bld)Ordered By: Dhiraj Carlton on 07-07-2024 Immature granulocytes/100 WBC (Bld) 1.500 % High 0.0-0.9 [facility] [place] Comment on above: IG% - Immature Granu locytes (promyelocytes, myelocytes and metamyelocytes) > 1% indicates that a LEFT SHIFT is Present. International normalized rat io (INR) calculationOrdered By: Dhiraj Carlton on 07-07-2024 INR Coag (Bld) [Relative time] 1.9 {INR} [facility] [place] Laboratory - Chemistry and C hemistry - challengeOrdered By: Dhiraj Carlton on 07-07-2024 AST [Catalytic activity/Vol] 19 U/L 15-37 [facility] [place] Lactic acid measurementOrder ed By: Dhiraj Carlton on 07-07-2024 Lactate [Moles/Vol] 2.0 mmol/L Normal 0.4-1.9 [facility] Comment on above: Critical Result(s) C alled at: 02:57:31 07/07/2024 by: ROSEANNA KUHN TO MG BLUE. Results read back by same. Order Comment: Y Result Comment: Crit ical Result(s) Called at: 02:57:31 07/07/2024 by:ROSEANNA KUHN TO MG BLUE. Results read back by same. Performed By: #### L 100.0100, L500.3400, L501.2450, L503.6005, L300.4310, L501.5200, L300.3900, L500.2500 ####[facility] [place] [address] [place], [address] Lipaseon 07-07-2024 Lipase [Catalytic activity/Vol] 21 U/L Normal 13-75 [facility] [place] Comment on above: Result Comment: Marcelle fritz note:LIPASE revised reference range effective 22.New Lipase methodology. Expected to produce lower valuesthan the previous assay method.NEW Reference Range: 13 - 75 U/L Performed By: #### L 100.0100, L500.3400, L501.2450, L503.6005, L300.4310, L501.5200, L300.3900, L500.2500 ####[facility] [place] [address] [place], [place], [phone] Lipase measurementOrdered By : Dhiraj Carlton on 07-07-2024 Lipase [Catalytic activity/Vol] 21 U/L 13-75 [facility] [place] Comment on above: Please note:LIPASE r evised reference range effective 22. New Lipase methodology. Expected to produce lower values than the previous assay method. NEW Reference Range: 13 - 75 U/L Liver Profileon 07-07-2024 Albumin [Mass/Vol] 2.7 g/dL Low 3.2-5.0 [facility] Comment on above: Performed By: #### L 100.0100, L500.3400, L501.2450, L503.6005, L300.4310, L501.5200, L300.3900, L500.2500 ####[facility] [address] [place], [place], [phone] ALK P 133 U/L High 45-117 [facility] [place] Comment on above: Performed By: #### L 100.0100, L500.3400, L501.2450, L503.6005, L300.4310, L501.5200, L300.3900, L500.2500 ####[facility] [place] [address] [place], [place], [phone] ALT [Catalytic activity/Vol] 19 U/L Normal 16-61 [facility] [place] Comment on above: Performed By: #### L 100.0100, L500.3400, L501.2450, L503.6005, L300.4310, L501.5200, L300.3900, L500.2500 ####[facility] [address] [place], [address] AST [Catalytic activity/Vol] 19 U/L Normal 15-37 [facility] [place] Comment on above: Performed By: #### L 100.0100, L500.3400, L501.2450, L503.6005, L300.4310, L501.5200, L300.3900, L500.2500 ####[facility] [place] [address] [place], [address] Bilirubin [Mass/Vol] 1.00 mg/dL Normal 0.20-1.00 [facility] Comment on above: Result Comment: For patients on eltrombopag therapy, use of Dimension Rulo TBIL is not recommended. Performed By: #### L 100.0100, L500.3400, L501.2450, L503.6005, L300.4310, L501.5200, L300.3900, L500.2500 ####[facility] [place] [address] [place], [address] Bilirubin.direct [Mass/Vol] 0.43 mg/dL High 0.00-0.30 [facility] [place] Comment on above: Performed By: #### L 100.0100, L500.3400, L501.2450, L503.6005, L300.4310, L501.5200, L300.3900, L500.2500 ####[facility] [place] [address] [place], [address] Globulin (S) [Mass/Vol] 5.0 g/dL High 2.2-4.2 [facility] [place] Comment on above: Performed By: #### L 100.0100, L500.3400, L501.2450, L503.6005, L300.4310, L501.5200, L300.3900, L500.2500 ####[facility] [place] [address] [place], [address] T PROT 7.7 g/dL Normal 6.4-8.2 [facility] [place] Comment on above: Performed By: #### L 100.0100, L500.3400, L501.2450, L503.6005, L300.4310, L501.5200, L300.3900, L500.2500 ####[facility] [place] [address] [place], [address] Lymphocytes Auto (Unsp spec) [#/Vol]Ordered By: Dhiraj Carlton on 07-07-2024 Lymphocytes (Bld) [#/Vol] 1.48 10*3/uL 0.83-4.51 [facility] [place] Lymphocytes/100 WBC Auto (Un sp spec)Ordered By: Dhiraj Carlton on 07-07-2024 Lymphocytes/100 WBC (Bld) 24.6 % 19-41 [facility] [place] MCV (mean corpuscular volume ) determinationOrdered By: Dhiraj Carlton on 07-07-2024 MCV (RBC) [Entitic vol] 97.4 fL High 80-94 [facility] [place] Magnesiumon 07-07-2024 Magnesium [Mass/Vol] 1.9 mg/dL Normal 1.6-2.6 [facility] Comment on above: Performed By: #### L 100.0100, L500.3400, L501.2450, L503.6005, L300.4310, L501.5200, L300.3900, L500.2500 ####[facility] [address] [place], [address] Magnesium measurementOrdered By: Dhiraj Carlton on 07-07-2024 Magnesium [Mass/Vol] 1.9 mg/dL 1.6-2.6 [facility] Mean corpuscular hemoglobin (MCH) determinationOrdered By: Dhiraj Carlton on 07-07-2024 MCH (RBC) [Entitic mass] 31.5 pg 27.0-32.0 [facility] [place] Mean corpuscular hemoglobin concentration (MCHC) determinationOrdered By: Dhiraj Carlton on 07-07-2024 MCHC (RBC) [Mass/Vol] 32.4 g/dL 32-36 [facility] Mean platelet volume determi nationOrdered By: Dhiraj Carlton on 07-07-2024 Platelet mean volume (Bld) [Entitic vol] 13.6 fL High 6.2-12.0 [facility] [place] Monocyte percentageOrdered B y: Dhiraj Carlton on 07-07-2024 Monocytes/100 WBC (Bld) 8.5 % 0-10 [facility] [place] Neutrophil percentageOrdered By: Dhiraj Carlton on 07-07-2024 Neutrophils/100 WBC (Bld) 62.7 % 47-70 [facility] [place] No Panel InformationOrdered By: Dhiraj Carlton on 07-07-2024 19 U/L 15-37 [facility] [place] Nucleated red blood cell per centageOrdered By: Dhiraj Carlton on 07-07-2024 Nucleated RBC/100 WBC (Bld) [Ratio] 0.5 % 0-5 [facility] [place] Partial Thromboplast Timeon 07-07-2024 aPTT Coag (Bld) [Time] 39.3 s High 24.1-36.2 [facility] Comment on above: Performed By: #### L 100.0100, L500.3400, L501.2450, L503.6005, L300.4310, L501.5200, L300.3900, L500.2500 ####[facility] [address], [place], [phone] Platelet countOrdered By: Marissa Carlton on 07-07-2024 Platelets (Bld) [#/Vol] 226 10*3/uL 150-450 [facility] [place] Potassium measurementOrdered By: Dhiraj Carlton on 07-07-2024 Potassium [Moles/Vol] 3.8 mmol/L 3.5-5.1 [facility] Prothrombin Time w/INRon INR Coag (PPP) [Relative time] 1.9 {INR} Normal [facility] [place] Comment on above: Performed By: #### L 100.0100, L500.3400, L501.2450, L503.6005, L300.4310, L501.5200, L300.3900, L500.2500 ####[facility] [address] [place], [place], [phone] PT Coag (PPP) [Time] 22.1 s High 11.7-14.9 [facility] Comment on above: Performed By: #### L 100.0100, L500.3400, L501.2450, L503.6005, L300.4310, L501.5200, L300.3900, L500.2500 ####[facility] [address] [place], [place], [phone] Prothrombin timeOrdered By: Dhiraj Carlton on 07-07-2024 PT Coag (PPP) [Time] 22.1 s High 11.7-14.9 [facility] RBC Auto (Bld) [#/Vol]Ordere d By: Dhiraj Carlton on 07-07-2024 RBC (Bld) [#/Vol] 3.52 10*6/uL Low 4.6-6.2 [facility] Serum anion gap measurementO rdered By: Dhiraj Carlton on 07-07-2024 Anion gap [Moles/Vol] 8 mmol/L 5-15 [facility] Serum globulin measurementOr dered By: Dhiraj Carlton on 07-07-2024 Globulin (S) [Mass/Vol] 5.0 g/dL High 2.2-4.2 [facility] [place] Serum or plasma alanine grace otransferase (ALT) measurementOrdered By: Dhiraj Carlton on 07-07-2024 ALT [Catalytic activity/Vol] 19 U/L 16-61 [facility] [place] Serum or plasma albumin shweta urement (mass/volume)Ordered By: Dhiraj Carlton on 07-07-2024 Albumin [Mass/Vol] 2.7 g/dL Low 3.2-5.0 [facility] Serum or plasma alkaline gibson sphatase measurementOrdered By: Dhiraj Carlton on 07-07-2024 ALP [Catalytic activity/Vol] 133 U/L High 45-117 [facility] [place] Serum or plasma calcium shweta urement (mass/volume)Ordered By: Dhiraj Carlton on 07-07-2024 Calcium [Mass/Vol] 8.9 mg/dL 8.5-10.1 [facility] Serum or plasma creatinine m easurement (mass/volume)Ordered By: Dhiraj Carlton on 07-07-2024 Creatinine [Mass/Vol] 1.02 mg/dL 0.70-1.30 [facility] Comment on above: The validity of the calculated GFR & GFRAA in patients over 70 years has not been determined. Clinical correlation is essential. Serum or plasma urea nitroge n measurement (mass/volume)Ordered By: Dhiraj Carlton on 07-07-2024 Urea nitrogen [Mass/Vol] 19 mg/dL High 7-18 [facility] [place] Sodium levelOrdered By: Kobe Carlton on 07-07-2024 Sodium [Moles/Vol] 138 mmol/L 136-145 [facility] Total proteinOrdered By: Orlando Carlton on 07-07-2024 Protein [Mass/Vol] 7.7 g/dL 6.4-8.2 [facility] White blood cell (WBC) count Ordered By: Dhiraj Carlton on 07-07-2024 WBC (Bld) [#/Vol] 6.0 10*3/uL 4.4-11.0 [facility] aPTT Coag (PPP) [Time]Ordere d By: Dhiraj Carlton on 07-07-2024 aPTT Coag (Bld) [Time] 39.3 s High 24.1-36.2 [facility] .Auto Diffon 07-01-2024 Basophil, Absolute 0.0 10 3/mcL Normal 0.0-0.3 [facility] Comment on above: Performed By: #### A PTT #### [address] [address] Basophils/100 WBC (Bld) 0.3 % Normal 0.0-2.5 [facility] Comment on above: Performed By: #### A PTT #### [address] [address] Eosinophil, Absolute 0.1 10 3/mcL Normal 0.0-0.7 [facility] Comment on above: Performed By: #### A PTT #### [address] [address] Eosinophils/100 WBC (Bld) 1.5 % Normal 0.0-6.0 [facility] Comment on above: Performed By: #### A PTT #### [address] [address] Lymphocyte, Absolute 1.2 10 3/mcL Normal 0.9-4.3 [facility] Comment on above: Performed By: #### A PTT #### [address] [address] Lymphocytes/100 WBC (Bld) 12.5 % Low 20.0-40.0 [facility] Comment on above: Performed By: #### A PTT #### [address] [address] Monocyte, Absolute 0.9 10 3/mcL Normal 0.1-1.4 [facility] Comment on above: Performed By: #### A PTT #### [address] [address] Monocytes/100 WBC (Bld) 9.7 % Normal 2.0-13.0 [facility] Comment on above: Performed By: #### A PTT #### [address] [address] Neutrophils/100 WBC (Bld) 76.0 % High 50.0-75.0 [facility] Comment on above: Performed By: #### A PTT #### [address] [address] .GFRon 07-01-2024 GFR >60 Normal [facility] Comment on above: Result Comment: GFR Population mean for , Non- Americans Ages 20-29 = 116 mL/min/1.73 sq.m. Ages 30-39 = 107 mL/min/1.73 sq.m. Ages 40-49 = 99 mL/min/1.73 sq.m. Ages 50-59 = 93 mL/min/1.73 sq.m. Ages 60-69 = 85 mL/min/1.73 sq.m. Ages 70+ = 75 mL/min/1.73 sq.m. Chronic Kidney Disease: Less than 60 mL/min/1.73 square meters End Stage Renal Disease: Less than 15 mL/min/1.73 square meters Performed By: #### A PTT #### [place] [address] GFR Non- >60 Normal [facility] Comment on above: Result Comment: GFR Population mean for , Non- Americans Ages 20-29 = 116 mL/min/1.73 sq.m. Ages 30-39 = 107 mL/min/1.73 sq.m. Ages 40-49 = 99 mL/min/1.73 sq.m. Ages 50-59 = 93 mL/min/1.73 sq.m. Ages 60-69 = 85 mL/min/1.73 sq.m. Ages 70+ = 75 mL/min/1.73 sq.m. Chronic Kidney Disease: Less than 60 mL/min/1.73 square meters End Stage Renal Disease: Less than 15 mL/min/1.73 square meters Performed By: #### A PTT #### [place] [address] .Morphon 07-01-2024 Ovalocytes 1+ [facility] Comment on above: Performed By: #### G FR, BMP, MG #### [place] [address] Platelet Clumps Moderate [facility] Comment on above: Performed By: #### G FR, BMP, MG #### [place] [address] Platelet Estimate Normal [facility] Comment on above: Performed By: #### G FR, BMP, MG #### [place] [address] Poik 1+ [facility] Comment on above: Performed By: #### G FR, BMP, MG #### [place] [address] .NEUABSon 07-01-2024 Neutrophil, Absolute 7.0 10 3/mcL Normal 2.3-8.1 [facility] Comment on above: Performed By: #### A PTT #### [address] [address] BMPon 07-01-2024 BUN/Creatinine Ratio 21.7 ratio Normal 10.0-22.0 [facility] Comment on above: Performed By: #### A PTT #### [address] [address] Calcium [Mass/Vol] 8.8 mg/dL Normal 8.7-10.4 [facility] Comment on above: Performed By: #### A PTT #### [address] [address] Chloride [Moles/Vol] 103 mmol/L Normal 98-110 [facility] Comment on above: Performed By: #### A PTT #### [address] [address] CO2 [Moles/Vol] 29 mmol/L Normal 22-32 [facility] Comment on above: Performed By: #### A PTT #### [address] [address] Creatinine [Mass/Vol] 0.83 mg/dL Normal 0.60-1.40 [facility] Comment on above: Result Comment: Test ing performed on [employer] analyzer using enzymatic creatinine methodology. Performed By: #### A PTT #### [address] [address] Electrolyte Balance 7.0 mEq/L Normal 4.0-15.0 [facility] MAIN Comment on above: Performed By: #### A PTT #### [address] [address] Glucose [Mass/Vol] 187 mg/dL High 82-115 [facility] MAIN Comment on above: Performed By: #### A PTT #### [address] [address] Potassium [Moles/Vol] 4.0 mmol/L Normal 3.5-5.0 [facility] MAIN Comment on above: Performed By: #### A PTT #### [address] [address] Sodium [Moles/Vol] 139 mmol/L Normal 136-145 [facility] MAIN Comment on above: Performed By: #### A PTT #### [place] [address] Urea nitrogen [Mass/Vol] 18.0 mg/dL Normal 8.0-22.0 [facility] MAIN Comment on above: Performed By: #### A PTT #### [place] [id number] CBCon 07-01-2024 Platelets (Bld) [#/Vol] 4 10*3/uL Normal 150-450 [facility] MAIN Comment on above: Result Comment: Plat elets appear adequate on smear; however, due to clumping an accurate count is not possible. Performed By: #### G FR, BMP, MG #### [place] [address] Platelet mean volume (Bld) [Entitic vol] 11.3 fL High 6.4-10.5 [facility] MAIN Comment on above: Performed By: #### G FR, BMP, MG #### [place] [address] Erythrocyte distribution width (RBC) [Ratio] 15.3 % Normal 11.5-15.5 [facility] MAIN Comment on above: Performed By: #### Lamberto FR, BMP, MG #### [place] [address] Hematocrit (Bld) [Volume fraction] 31.2 % Low 40.0-52.0 [facility] MAIN Comment on above: Performed By: #### G FR, BMP, MG #### [place] [address] Hgb 10.5 G/dL Low 13.0-17.5 [facility] MAIN Comment on above: Performed By: #### G FR, BMP, MG #### [place] [id number] MCH (RBC) [Entitic mass] 31.8 pg Normal 27.0-33.0 [facility] MAIN Comment on above: Performed By: #### G FR, BMP, MG #### [place] [id number] [place] [address] MCHC 33.6 G/dL Normal 32.0-36.0 [facility] MAIN Comment on above: Performed By: #### G FR, BMP, MG #### [facility] [address] [place] [address] MCV (RBC) [Entitic vol] 94.6 fL Normal 81.0-100.0 [facility] MAIN Comment on above: Performed By: #### G FR, BMP, MG #### [facility] [address] [place] [id number] RBC 3.29 10 6/mcL Low 4.50-6.00 [facility] MAIN Comment on above: Performed By: #### G FR, BMP, MG #### [address] [address] WBC 9.2 10 3/mcL Normal 4.5-10.8 [facility] MAIN Comment on above: Performed By: #### G FR, BMP, MG #### [address] [address] LABORATORYOrdered By: Ann Grimaldo on 07-01-2024 Glucose [Mass/Vol] 278 mg/dL High 82 - 115 mg/dL [facility] Work Phone: LABORATORYOrdered By: Coral Kim on 07-01-2024 Glucose [Mass/Vol] 234 mg/dL High 82 - 115 mg/dL [facility] Work Phone: LABORATORYOrdered By: SYSTEM SYSTEM on 07-01-2024 Basophils (Bld) [#/Vol] 0.0 103/mcL Normal 0.0 - 0.3 10^3/mcL AH Workflow SS Basophils/100 WBC (Bld) 0.3 % Normal 0.0 - 2.5 % AH Workflow SS Calcium [Mass/Vol] 8.8 mg/dL Normal 8.7 - 10. 4 mg/dL AH ADM SS Chloride [Moles/Vol] 103 mmol/L Normal 98 - 11 0 mEq/L AH ADM SS CO2 [Moles/Vol] 29 mmol/L Normal 22 - 32 mEq/L AH ADM SS Creatinine [Mass/Vol] 0.83 mg/dL Normal 0.60 - 1.40 mg/dL ADM Comment on above: Interpretive Data: T esting performed on [email or web address] analyzer using enzymatic creatinine methodology. Electrolyte Balance 7.0 mEq/L Normal 4.0 - 15 .0 mEq/L ADM SS Eosinophils (Bld) [#/Vol] 0.1 103/mcL Normal 0.0 - 0.7 10^3/mcL Workflow SS Eosinophils/100 WBC (Bld) 1.5 % Normal 0.0 - 6.0 % Workflow SS Erythrocyte distribution width (RBC) [Ratio] 15.3 % Normal 11.5 - 15.5 % Workflow SS GFR/1.73 sq M.predicted among blacks MDRD (S/P/Bld) [Vol rate/Area] ml/min/1.73sqm Invalid Interpretation Code ADM Comment on above: Interpretive Data: GFR Population mean for , Non- Americans Ages 20-29 = 116 mL/min/1.73 sq.m. Ages 30-39 = 107 mL/min/1.73 sq.m. Ages 40-49 = 99 mL/min/1.73 sq.m. Ages 50-59 = 93 mL/min/1.73 sq.m. Ages 60-69 = 85 mL/min/1.73 sq.m. Ages 70+ = 75 mL/min/1.73 sq.m. Chronic Kidney Disease: Less than 60 mL/min/1.73 square meters End Stage Renal Disease: Less than 15 mL/min/1.73 square meters GFR/1.73 sq M.predicted among non-blacks MDRD (S/P/Bld) [Vol rate/Area] ml/min/1.73sqm Invalid Interpretation Code [facility] Comment on above: Interpretive Data: GFR Population mean for , Non- Americans Ages 20-29 = 116 mL/min/1.73 sq.m. Ages 30-39 = 107 mL/min/1.73 sq.m. Ages 40-49 = 99 mL/min/1.73 sq.m. Ages 50-59 = 93 mL/min/1.73 sq.m. Ages 60-69 = 85 mL/min/1.73 sq.m. Ages 70+ = 75 mL/min/1.73 sq.m. Chronic Kidney Disease: Less than 60 mL/min/1.73 square meters End Stage Renal Disease: Less than 15 mL/min/1.73 square meters Glucose [Mass/Vol] 187 mg/dL High 82 - 115 mg/dL AH ADM SS Hematocrit (Bld) [Volume fraction] 31.2 % Low 40.0 - 52.0 % AH Workflow SS Hemoglobin (Bld) [Mass/Vol] 10.5 G/dL Low 13.0 - 17.5 G/dL AH Workflow SS Lymphocytes (Bld) [#/Vol] 1.2 103/mcL Normal 0.9 - 4.3 10^3/mcL AH Workflow SS Lymphocytes/100 WBC (Bld) 12.5 % Low 20.0 - 40.0 % AH Workflow SS Magnesium [Mass/Vol] 1.8 mg/dL Normal 1.6 - 2 .4 mg/dL ADM SS MCH (RBC) [Entitic mass] 31.8 pg Normal 27.0 - 33.0 pg AH Workflow SS MCHC 33.6 G/dL Normal 32.0 - 36.0 G/dL AH Workflow SS MCV (RBC) [Entitic vol] 94.6 fL Normal 81.0 - 100.0 fL AH Workflow SS Monocytes (Bld) [#/Vol] 0.9 103/mcL Normal 0.1 - 1.4 10^3/mcL AH Workflow SS Monocytes/100 WBC (Bld) 9.7 % Normal 2.0 - 13.0 % AH Workflow SS Neutrophils (Bld) [#/Vol] 7.0 103/mcL Normal 2.3 - 8.1 10^3/mcL AH Workflow SS Neutrophils/100 WBC (Bld) 76.0 % High 50.0 - 75.0 % AH Workflow SS Ovalocytes LM Ql (Bld) 1+ *NA* (07/01/24 2:50 AM) Invalid Interpretation Code AH Workflow SS Platelet Clumps Moderate *NA* (07/01/24 2:50 AM) Invalid Interpretation Code AH Workflow SS Platelet mean volume (Bld) [Entitic vol] 11.3 fL High 6.4 - 10.5 fL AH Workflow SS Platelets LM Ql (Bld) Normal *NA* (07/01/24 2:50 AM) Invalid Interpretation Code AH Workflow SS Poikilocytosis LM Ql (Bld) 1+ *NA* (07/01/24 2:50 AM) Invalid Interpretation Code AH Workflow SS Potassium [Moles/Vol] 4.0 mmol/L Normal 3.5 - 5.0 mEq/L AH ADM SS RBC (Bld) [#/Vol] 3.29 106/mcL Low 4.50 - 6.00 10^6/mcL AH Workflow SS Sodium [Moles/Vol] 139 mmol/L Normal 136 - 145 mEq/L AH ADM SS Urea nitrogen [Mass/Vol] 18.0 mg/dL Normal 8.0 - 22.0 mg/dL AH ADM SS Urea nitrogen/Creatinine [Mass ratio] 21.7 ratio Normal 10.0 - 22.0 ratio AH ADM SS WBC (Bld) [#/Vol] 9.2 103/mcL Normal 4.5 - 10.8 10^3/mcL Workflow SS LABORATORYOrdered By: Marv Angel on 07-01-2024 Platelets (Bld) [#/Vol] See Comment 4 7 *NA* (07/01/24 2:50 AM) Invalid Interpretation Code 150 - 450 Workflow SS Comment on above: Result Comment: Plat elets appear adequate on smear; however, due to clumping an accurate count is not possible. MGon 07-01-2024 Magnesium [Mass/Vol] 1.8 mg/dL Normal 1.6-2.4 [facility] MAIN Comment on above: Performed By: #### A PTT #### [place] [address] XR CHEST 2 VIEWSon XR CHEST 2 VIEWS ORIGINAL EXAMINATION: TWO XRAY VIEWS OF THE CHEST 07/01/2024 9:36 am COMPARISON: June 30, 2024 HISTORY: ORDERING SYSTEM PROVIDED HISTORY: Reason for Exam: Evaluate for pneumothorax/lead position post pacer/ICD insertion FINDINGS: Pacemaker unit and wires are unchanged in position since the previous exam. Wires terminate at the right atrium and the right ventricle. No pneumothorax is visible. Cardiomegaly is present without vascular congestion. Small right and left pleural effusions are present. Elevation left hemidiaphragm, stable. No definite pneumothorax is visible. Minor degenerative changes are noted in the spine. IMPRESSION: No pneumothorax post pacemaker placement. Small pleural effusions. Interpreted by: Alejandro Carreno MD Preliminary Report By: Alejandro Carreno MD Electronically signed By Alejandro Carreno MD Dictated Date: 07/01/2024 9:39:47 AM Prelim Date: 07/01/2024 9:40:30 AM Sign Date: 07/01/2024 9:40:30 AM Ordering Provider: MORA SORIA [facility] MAIN .GFRon 06-30-2024 GFR Non- >60 [facility] MAIN Comment on above: Result Comment: GFR Population mean for , Non- Americans Ages 20-29 = 116 mL/min/1.73 sq.m. Ages 30-39 = 107 mL/min/1.73 sq.m. Ages 40-49 = 99 mL/min/1.73 sq.m. Ages 50-59 = 93 mL/min/1.73 sq.m. Ages 60-69 = 85 mL/min/1.73 sq.m. Ages 70+ = 75 mL/min/1.73 sq.m. Chronic Kidney Disease: Less than 60 mL/min/1.73 square meters End Stage Renal Disease: Less than 15 mL/min/1.73 square meters Performed By: #### G FR, BMP, MG #### [address] [address] GFR >60 [facility] MAIN Comment on above: Result Comment: GFR Population mean for , Non- Americans Ages 20-29 = 116 mL/min/1.73 sq.m. Ages 30-39 = 107 mL/min/1.73 sq.m. Ages 40-49 = 99 mL/min/1.73 sq.m. Ages 50-59 = 93 mL/min/1.73 sq.m. Ages 60-69 = 85 mL/min/1.73 sq.m. Ages 70+ = 75 mL/min/1.73 sq.m. Chronic Kidney Disease: Less than 60 mL/min/1.73 square meters End Stage Renal Disease: Less than 15 mL/min/1.73 square meters Performed By: #### G FR, BMP, MG #### [address] [address] .Manual Diffon 06-30-2024 Bands 1.0 % Normal 0.0-5.0 [facility] MAIN Comment on above: Performed By: #### G FR, BMP, MG #### [address] [address] Basophil %, Manual 0.0 % Normal 0.0-2.5 [facility] MAIN Comment on above: Performed By: #### G FR, BMP, MG #### [address] [address] Basophil, Abs Manual 0.0 10 3/mcL Normal 0.0-0.3 [facility] MAIN Comment on above: Performed By: #### G FR, BMP, MG #### [address] [address] Eosinophil %, Manual 1.0 % Normal 0.0-6.0 [facility] MAIN Comment on above: Performed By: #### G FR, BMP, MG #### [address] [address] Eosinophil, Abs Manual 0.1 10 3/mcL Normal 0.0-0.7 [facility] MAIN Comment on above: Performed By: #### G FR, BMP, MG #### [address] [address] Lymphocyte %, Manual 11.0 % Low 20.0-40.0 [facility] MAIN Comment on above: Performed By: #### G FR, BMP, MG #### [address] [address] Lymphocyte, Abs Manual 0.9 10 3/mcL Normal 0.9-4.3 [facility] MAIN Comment on above: Performed By: #### G FR, BMP, MG #### [address] [address] Metamyelocyte 1.0 % Normal [facility] MAIN Comment on above: Performed By: #### G FR, BMP, MG #### [address] [address] Monocyte %, Manual 5.0 % Normal 2.0-13.0 [facility] MAIN Comment on above: Performed By: #### G FR, BMP, MG #### [address] [address] Monocyte, Abs Manual 0.4 10 3/mcL Normal 0.1-1.4 [facility] MAIN Comment on above: Performed By: #### G FR, BMP, MG #### [place] [address] Neutrophil %, Manual 81.0 % High 50.0-75.0 [facility] MAIN Comment on above: Performed By: #### G FR, BMP, MG #### [place] [id number] Neutrophil, Abs Manual 6.8 10 3/mcL Normal 2.3-8.1 [facility] MAIN Comment on above: Performed By: #### G FR, BMP, MG #### [place] [address] Nucleated RBC 1.0 /100 WBC Normal [facility] MAIN Comment on above: Performed By: #### G FR, BMP, MG #### [place] [address] .Morphon 06-30-2024 Anisocytosis Ql (Bld) 1+ Normal [facility] MAIN Comment on above: Performed By: #### G FR, BMP, MG #### [place] [address] Large Platelets Few [facility] MAIN Comment on above: Performed By: #### G FR, BMP, MG #### [place] [phone] Platelet Clumps Few Normal [facility] MAIN Comment on above: Performed By: #### G FR, BMP, MG #### [place] [address] Platelet Estimate Normal [facility] MAIN Comment on above: Result Comment: Manu al platelet estimate: 200,000-225,000 Performed By: #### G FR, BMP, MG #### [place] [address] APTTon 06-30-2024 aPTT Coag (Bld) [Time] 43.7 s High 25.0-35.0 [facility] MAIN Comment on above: Result Comment: For Heparin anticoagulation therapy, the recommended therapeutic range is: 54-77 seconds (APTT Correlation with Anti-Xa therapeutic range of 0.3-0.7 units/ml). PLEASE REFERENCE THE PHARMACY PROTOCOL FOR DOSING. Performed By: #### A PTT #### [address] [address] BMPon 06-30-2024 BUN/Creatinine Ratio 23.8 ratio High 10.0-22.0 [facility] MAIN Comment on above: Performed By: #### G FR, BMP, MG #### [address] [address] Calcium [Mass/Vol] 8.8 mg/dL Normal 8.7-10.4 [facility] MAIN Comment on above: Performed By: #### G FR, BMP, MG #### [address] [address] Chloride [Moles/Vol] 100 mmol/L Normal 98-110 [facility] MAIN Comment on above: Performed By: #### G FR, BMP, MG #### [address] [address] CO2 [Moles/Vol] 29 mmol/L Normal 22-32 [facility] MAIN Comment on above: Performed By: #### G FR, BMP, MG #### [address] [address] Creatinine [Mass/Vol] 0.84 mg/dL Normal 0.60-1.40 [facility] MAIN Comment on above: Result Comment: Test ing performed on [employer] analyzer using enzymatic creatinine methodology. Performed By: #### G FR, BMP, MG #### [address] [address] Electrolyte Balance 8.0 mEq/L Normal 4.0-15.0 [facility] MAIN Comment on above: Performed By: #### G FR, BMP, MG #### [address] [address] Glucose [Mass/Vol] 243 mg/dL High 82-115 [facility] MAIN Comment on above: Performed By: #### G FR, BMP, MG #### [address] [address] Potassium [Moles/Vol] 4.2 mmol/L Normal 3.5-5.0 [facility] MAIN Comment on above: Performed By: #### G FR, BMP, MG #### [facility] [address] [place] [address] Sodium [Moles/Vol] 137 mmol/L Normal 136-145 [facility] MAIN Comment on above: Performed By: #### G FR, BMP, MG #### [facility] [address] [place] [address] Urea nitrogen [Mass/Vol] 20.0 mg/dL Normal 8.0-22.0 [facility] MAIN Comment on above: Performed By: #### G FR, BMP, MG #### [facility] [address] [place] [address] CBCon 06-30-2024 Platelet See Comment Normal 150-450 [facility] MAIN Comment on above: Result Comment: An a utomated quantitative platelet count was not given on this specimen. Please note the values (shown below) that correlate with the platelet estimate. This estimate is derived by mathematical calculation of the platelets as seen on the patient's smear. If an actual count is desired it may be necessary to obtain a different specimen. Please contact the hematology department at Ext [phone]. Manual platelet estimate: 200,000-225,000 [employer] More than 900,000 INCREASED 550,000 - 900,000 SLT INC 450,000 - 550,000 NORMAL 150,000 - 450,000 SLT DEC 100,000 - 150,000 DECREASED 50,000 - 100,000 [employer]RT[employer] DEC Less than 50,000 An automated quantitative platelet count was not given on this specimen. Please note the values (shown below) that correlate with the platelet estimate. This estimate is derived by mathematical calculation of the platelets as seen on the patient's smear. If an actual count is desired it may be necessary to obtain a different specimen. Please contact the hematology department at Ext [phone]. [employer] More than 900,000 INCREASED 550,000 - 900,000 SLT INC 450,000 - 550,000 NORMAL 150,000 - 450,000 SLT DEC 100,000 - 150,000 DECREASED 50,000 - 100,000 [employer] DEC Less than 50,000 Performed By: #### G FR, BMP, MG #### [address] [address] Erythrocyte distribution width (RBC) [Ratio] 15.1 % Normal 11.5-15.5 [facility] MAIN Comment on above: Performed By: #### G FR, BMP, MG #### [place] [address] Hematocrit (Bld) [Volume fraction] 30.1 % Low 40.0-52.0 [facility] MAIN Comment on above: Performed By: #### G FR, BMP, MG #### [place] [address] Hgb 10.5 G/dL Low 13.0-17.5 [facility] MAIN Comment on above: Performed By: #### G FR, BMP, MG #### [place] [address] MCH (RBC) [Entitic mass] 32.4 pg Normal 27.0-33.0 [facility] MAIN Comment on above: Performed By: #### G FR, BMP, MG #### [place] [address] MCHC 34.8 G/dL Normal 32.0-36.0 [facility] MAIN Comment on above: Performed By: #### G FR, BMP, MG #### [place] [address] MCV (RBC) [Entitic vol] 93.1 fL Normal 81.0-100.0 [facility] MAIN Comment on above: Performed By: #### G FR, BMP, MG #### [place] [address] Platelet mean volume (Bld) [Entitic vol] 11.1 fL High 6.4-10.5 [facility] MAIN Comment on above: Performed By: #### G FR, BMP, MG #### [place] [address] RBC 3.24 10 6/mcL Low 4.50-6.00 [facility] MAIN Comment on above: Performed By: #### G FR, BMP, MG #### [place] [address] WBC 8.3 10 3/mcL Normal 4.5-10.8 [facility] MAIN Comment on above: Performed By: #### G FR, BMP, MG #### [facility] [address] [place] [address] LABORATORYOrdered By: Jackson Spaulding on 06-30-2024 Blood Glucose Testing Reason Routine (06/30/24 8:33 PM) [facility] Work Phone: Glucose [Mass/Vol] 106 mg/dL Normal 82 - 115 mg/dL [facility] Work Phone: Blood Glucose Testing Reason Routine (06/30/24 5:36 PM) [facility] Work Phone: Blood Glucose Testing Reason Routine (06/30/24 2:02 PM) [facility] Work Phone: LABORATORYOrdered By: SYSTEM SYSTEM on 06-30-2024 Anisocytosis Ql (Bld) 1+ *NA* (06/30/24 3:38 AM) Invalid Interpretation Code Workflow SS Band form neutrophils/100 WBC (Bld) 1.0 % Normal 0.0 - 5.0 % AH Workflow SS Basophils (Bld) [#/Vol] 0.0 103/mcL Normal 0.0 - 0.3 10^3/mcL AH Workflow SS Basophils/100 WBC (Bld) 0.0 % Normal 0.0 - 2.5 % AH Workflow SS Calcium [Mass/Vol] 8.8 mg/dL Normal 8.7 - 10. 4 mg/dL ADM SS Chloride [Moles/Vol] 100 mmol/L Normal 98 - 11 0 mEq/L ADM SS CO2 [Moles/Vol] 29 mmol/L Normal 22 - 32 mEq/L ADM SS Creatinine [Mass/Vol] 0.84 mg/dL Normal 0.60 - 1.40 mg/dL AH ADM SS Comment on above: Interpretive Data: T esting performed on [employer] analyzer using enzymatic creatinine methodology. Electrolyte Balance 8.0 mEq/L Normal 4.0 - 15 .0 mEq/L ADM SS Eosinophils (Bld) [#/Vol] 0.1 103/mcL Normal 0.0 - 0.7 10^3/mcL AH Workflow SS Eosinophils/100 WBC (Bld) 1.0 % Normal 0.0 - 6.0 % AH Workflow SS Erythrocyte distribution width (RBC) [Ratio] 15.1 % Normal 11.5 - 15.5 % Workflow SS GFR/1.73 sq M.predicted among blacks MDRD (S/P/Bld) [Vol rate/Area] ml/min/1.73sqm Invalid Interpretation Code [facility] Comment on above: Interpretive Data: GFR Population mean for , Non- Americans Ages 20-29 = 116 mL/min/1.73 sq.m. Ages 30-39 = 107 mL/min/1.73 sq.m. Ages 40-49 = 99 mL/min/1.73 sq.m. Ages 50-59 = 93 mL/min/1.73 sq.m. Ages 60-69 = 85 mL/min/1.73 sq.m. Ages 70+ = 75 mL/min/1.73 sq.m. Chronic Kidney Disease: Less than 60 mL/min/1.73 square meters End Stage Renal Disease: Less than 15 mL/min/1.73 square meters GFR/1.73 sq M.predicted among non-blacks MDRD (S/P/Bld) [Vol rate/Area] ml/min/1.73sqm Invalid Interpretation Code [facility] Comment on above: Interpretive Data: GFR Population mean for , Non- Americans Ages 20-29 = 116 mL/min/1.73 sq.m. Ages 30-39 = 107 mL/min/1.73 sq.m. Ages 40-49 = 99 mL/min/1.73 sq.m. Ages 50-59 = 93 mL/min/1.73 sq.m. Ages 60-69 = 85 mL/min/1.73 sq.m. Ages 70+ = 75 mL/min/1.73 sq.m. Chronic Kidney Disease: Less than 60 mL/min/1.73 square meters End Stage Renal Disease: Less than 15 mL/min/1.73 square meters Glucose [Mass/Vol] 243 mg/dL High 82 - 115 mg/dL ADM Hematocrit (Bld) [Volume fraction] 30.1 % Low 40.0 - 52.0 % Workflow SS Hemoglobin (Bld) [Mass/Vol] 10.5 G/dL Low 13.0 - 17.5 G/dL Workflow SS Large Platelets Few *NA* (06/30/24 3:38 AM) Invalid Interpretation Code Workflow SS Lymphocytes (Bld) [#/Vol] 0.9 103/mcL Normal 0.9 - 4.3 10^3/mcL Workflow SS Lymphocytes/100 WBC (Bld) 11.0 % Low 20.0 - 40.0 % AH Workflow SS Magnesium [Mass/Vol] 1.9 mg/dL Normal 1.6 - 2 .4 mg/dL ADM SS MCH (RBC) [Entitic mass] 32.4 pg Normal 27.0 - 33.0 pg AH Workflow SS MCHC 34.8 G/dL Normal 32.0 - 36.0 G/dL Workflow SS MCV (RBC) [Entitic vol] 93.1 fL Normal 81.0 - 100.0 fL Workflow SS Metamyelocytes/100 WBC (Bld) 1.0 % Invalid Interpretation Code Workflow SS Monocytes (Bld) [#/Vol] 0.4 103/mcL Normal 0.1 - 1.4 10^3/mcL Workflow SS Monocytes/100 WBC (Bld) 5.0 % Normal 2.0 - 13.0 % Workflow SS Neutrophils (Bld) [#/Vol] 6.8 103/mcL Normal 2.3 - 8.1 10^3/mcL Workflow SS Neutrophils/100 WBC (Bld) 81.0 % High 50.0 - 75.0 % Workflow SS Nucleated RBC 1.0 /100 WBC Invalid Interpretation Code Workflow SS Platelet Clumps Few *NA* (06/30/24 3:38 AM) Invalid Interpretation Code Workflow SS Platelet mean volume (Bld) [Entitic vol] 11.1 fL High 6.4 - 10.5 fL Workflow SS Platelets (Bld) [#/Vol] See Comment Invalid Interpretation Code 150 - 450 Hematology S Comment on above: Result Comment: An a utomated quantitative platelet count was not given on this specimen. Please note the values (shown below) that correlate with the platelet estimate. This estimate is derived by mathematical calculation of the platelets as seen on the patient's smear. If an actual count is desired it may be necessary to obtain a different specimen. Please contact the hematology department at Ext [phone]. Manual platelet estimate: 200,000-225,000 [employer] More than 900,000 INCREASED 550,000 - 900,000 SLT INC 450,000 - 550,000 NORMAL 150,000 - 450,000 SLT DEC 100,000 - 150,000 DECREASED 50,000 - 100,000 [employer] DEC Less than 50,000 Result Comment: An a utomated quantitative platelet count was not given on this specimen. Please note the values (shown below) that correlate with the platelet estimate. This estimate is derived by mathematical calculation of the platelets as seen on the patient's smear. If an actual count is desired it may be necessary to obtain a different specimen. Please contact the hematology department at Ext [phone]. [employer] More than 900,000 INCREASED 550,000 - 900,000 SLT INC 450,000 - 550,000 NORMAL 150,000 - 450,000 SLT DEC 100,000 - 150,000 DECREASED 50,000 - 100,000 [employer]RT[employer] DEC Less than 50,000 Platelets LM Ql (Bld) Normal 15 *NA* (06/30/24 3:38 AM) Invalid Interpretation Code AH Workflow SS Comment on above: Result Comment: Manu al platelet estimate: 200,000-225,000 Potassium [Moles/Vol] 4.2 mmol/L Normal 3.5 - 5.0 mEq/L ADM SS RBC (Bld) [#/Vol] 3.24 106/mcL Low 4.50 - 6.00 10^6/mcL AH Workflow SS Sodium [Moles/Vol] 137 mmol/L Normal 136 - 145 mEq/L ADM SS Urea nitrogen [Mass/Vol] 20.0 mg/dL Normal 8.0 - 22.0 mg/dL ADM SS Urea nitrogen/Creatinine [Mass ratio] 23.8 ratio High 10.0 - 22.0 ratio ADM SS WBC (Bld) [#/Vol] 8.3 103/mcL Normal 4.5 - 10.8 10^3/mcL AH Workflow SS MGon 06-30-2024 Magnesium [Mass/Vol] 1.9 mg/dL Normal 1.6-2.4 [facility] MAIN Comment on above: Performed By: #### G FR, BMP, MG #### [place] [address] No Panel Informationon 06-30 Legionella Urine Ag Presumptive negative for L. pneumophila serogroup 1 antigen in urine, suggesting no recent or current infection. Legionnaire's disease cannot be ruled out since other serogroups and species may also cause disease. [facility] Work Phone: XR CHEST 1 VIEWon 06-30-2024 XR CHEST 1 VIEW ORIGINAL EXAMINATION: ONE XRAY VIEW OF THE CHEST06/30/2024 6:18 pm COMPARISON: Same day chest radiograph at 11:25 a.m. HISTORY: ORDERING SYSTEM PROVIDED HISTORY: Reason for Exam: Evaluate for pneumothorax/lead position post pacer/ICD insertion FINDINGS: Stable enlargement of the cardiomediastinal silhouette and elevation of the left hemidiaphragm. Aeration of the lungs is overall similar to the prior exam given difference technique and semi upright position. Suspect similar trace left effusion over the elevated left hemidiaphragm with overlying airspace opacities/atelectasis. No pneumothorax. Interval placement of left-sided ICD with leads terminating over the expected area of the right atrium and right ventricle. IMPRESSION: Interval placement of left-sided ICD with leads terminating over the expected area of the right atrium and right ventricle. No pneumothorax. No significant interval change in lung aeration. Preliminary Report was Dictated by a Resident I have personally reviewed all of the images of this examination and agree with the resident findings and interpretation. Interpreted by: Wood Putnam MD Preliminary Report By: Alejandro Hudson Electronically signed By Wood Putnam MD Dictated Date: 06/30/2024 6:25:39 PM Prelim Date: 06/30/2024 6:28:30 PM Sign Date: 06/30/2024 8:46:51 PM Ordering Provider: ELBA Ayoub [facility] XR CHEST 1 VIEW ORIGINAL EXAMINATION: ONE XRAY VIEW OF THE CHEST06/30/2024 11:20 am Portable upright COMPARISON: 06/27/2024 HISTORY: ORDERING SYSTEM PROVIDED HISTORY: Reason for Exam: Cough, SOB, FINDINGS: Stable enlargement of the cardiopericardial silhouette and elevation of the left hemidiaphragm. There is left basilar atelectasis that has increased. No other significant interval change. Continued interstitial and peribronchial thickening in both lungs. No large pleural effusion or pneumothorax. Vasculature is difficult to evaluate. IMPRESSION: There is some increase in left basilar atelectasis. No other significant change. Interpreted by: Karri Gross MD Preliminary Report By: Karri Gross MD Electronically signed By Karri Gross MD Dictated Date: 06/30/2024 11:25:19 AM Prelim Date: 06/30/2024 11:26:40 AM Sign Date: 06/30/2024 11:26:40 AM Ordering Provider: DHIRAJ Ayoub [facility] .Auto Diffon 06-29-2024 Basophil, Absolute 0.0 10 3/mcL Normal 0.0-0.3 [facility] Comment on above: Performed By: #### A PTT #### [address] [address] Basophils/100 WBC (Bld) 0.3 % Normal 0.0-2.5 [facility] Comment on above: Performed By: #### A PTT #### [address] [address] Eosinophil, Absolute 0.1 10 3/mcL Normal 0.0-0.7 [facility] Comment on above: Performed By: #### A PTT #### [address] [address] Eosinophils/100 WBC (Bld) 1.4 % Normal 0.0-6.0 [facility] Comment on above: Performed By: #### A PTT #### [address] [address] Lymphocyte, Absolute 1.1 10 3/mcL Normal 0.9-4.3 [facility] Comment on above: Performed By: #### A PTT #### [address] [address] Lymphocytes/100 WBC (Bld) 14.7 % Low 20.0-40.0 [facility] Comment on above: Performed By: #### A PTT #### [address] [address] Monocyte, Absolute 0.9 10 3/mcL Normal 0.1-1.4 [facility] Comment on above: Performed By: #### A PTT #### [address] [address] Monocytes/100 WBC (Bld) 12.0 % Normal 2.0-13.0 [facility] Comment on above: Performed By: #### A PTT #### [address] [address] Neutrophils/100 WBC (Bld) 71.6 % Normal 50.0-75.0 [facility] Comment on above: Performed By: #### A PTT #### [address] [address] .GFRon 06-29-2024 GFR Non- >60 [facility] MAIN Comment on above: Result Comment: GFR Population mean for , Non- Americans Ages 20-29 = 116 mL/min/1.73 sq.m. Ages 30-39 = 107 mL/min/1.73 sq.m. Ages 40-49 = 99 mL/min/1.73 sq.m. Ages 50-59 = 93 mL/min/1.73 sq.m. Ages 60-69 = 85 mL/min/1.73 sq.m. Ages 70+ = 75 mL/min/1.73 sq.m. Chronic Kidney Disease: Less than 60 mL/min/1.73 square meters End Stage Renal Disease: Less than 15 mL/min/1.73 square meters Performed By: #### A PTT #### [address] [address] GFR >60 Normal [facility] MAIN Comment on above: Result Comment: GFR Population mean for , Non- Americans Ages 20-29 = 116 mL/min/1.73 sq.m. Ages 30-39 = 107 mL/min/1.73 sq.m. Ages 40-49 = 99 mL/min/1.73 sq.m. Ages 50-59 = 93 mL/min/1.73 sq.m. Ages 60-69 = 85 mL/min/1.73 sq.m. Ages 70+ = 75 mL/min/1.73 sq.m. Chronic Kidney Disease: Less than 60 mL/min/1.73 square meters End Stage Renal Disease: Less than 15 mL/min/1.73 square meters Performed By: #### A PTT #### [address] [address] .NEUABSon 06-29-2024 Neutrophil, Absolute 5.5 10 3/mcL Normal 2.3-8.1 [facility] MAIN Comment on above: Performed By: #### A PTT #### [place] [id number] APTTon 06-29-2024 aPTT Coag (Bld) [Time] 30.5 s Normal 25.0-35.0 [facility] MAIN Comment on above: Result Comment: For Heparin anticoagulation therapy, the recommended therapeutic range is: 54-77 seconds (APTT Correlation with Anti-Xa therapeutic range of 0.3-0.7 units/ml). PLEASE REFERENCE THE PHARMACY PROTOCOL FOR DOSING. Performed By: #### A PTT #### [place] [phone] aPTT Coag (Bld) [Time] 60.7 s High 25.0-35.0 [facility] Comment on above: Result Comment: For Heparin anticoagulation therapy, the recommended therapeutic range is: 54-77 seconds (APTT Correlation with Anti-Xa therapeutic range of 0.3-0.7 units/ml). PLEASE REFERENCE THE PHARMACY PROTOCOL FOR DOSING. Performed By: #### G FR, BMP, MG #### [address] [address] BMPon 06-29-2024 BUN/Creatinine Ratio 22.1 ratio High 10.0-22.0 [facility] MA[facility] Comment on above: Performed By: #### A PTT #### [address] [address] Calcium [Mass/Vol] 8.7 mg/dL Normal 8.7-10.4 [facility] Comment on above: Performed By: #### A PTT #### [address] [address] Chloride [Moles/Vol] 101 mmol/L Normal 98-110 [facility] Comment on above: Performed By: #### A PTT #### [address] [address] CO2 [Moles/Vol] 30 mmol/L Normal 22-32 [facility] Comment on above: Performed By: #### A PTT #### [address] [address] Creatinine [Mass/Vol] 0.77 mg/dL Normal 0.60-1.40 [facility] Comment on above: Result Comment: Test ing performed on [employer] analyzer using enzymatic creatinine methodology. Performed By: #### A PTT #### [place] [address] Electrolyte Balance 7.0 mEq/L Normal 4.0-15.0 [facility] Comment on above: Performed By: #### A PTT #### [place] [phone] Glucose [Mass/Vol] 235 mg/dL High 82-115 [facility] Comment on above: Performed By: #### A PTT #### [place] [address] Potassium [Moles/Vol] 3.6 mmol/L Normal 3.5-5.0 [facility] Comment on above: Performed By: #### A PTT #### [place] [address] Sodium [Moles/Vol] 138 mmol/L Normal 136-145 [facility] Comment on above: Performed By: #### A PTT #### [place] [address] Urea nitrogen [Mass/Vol] 17.0 mg/dL Normal 8.0-22.0 [facility] Comment on above: Performed By: #### A PTT #### [place] [phone] CBCon 06-29-2024 Erythrocyte distribution width (RBC) [Ratio] 14.9 % Normal 11.5-15.5 [facility] Comment on above: Performed By: #### C BC, BMP, GFR, ADIFF, MG, ANEU #### [place] [phone] Hematocrit (Bld) [Volume fraction] 30.7 % Low 40.0-52.0 [facility] Comment on above: Performed By: #### C BC, BMP, GFR, ADIFF, MG, ANEU #### [place] [phone] Hgb 10.5 G/dL Low 13.0-17.5 [facility] Comment on above: Performed By: #### C BC, BMP, GFR, ADIFF, MG, ANEU #### [place] [address] MCH (RBC) [Entitic mass] 31.9 pg Normal 27.0-33.0 [facility] Comment on above: Performed By: #### C BC, BMP, GFR, ADIFF, MG, ANEU #### [place] [address] MCHC 34.2 G/dL Normal 32.0-36.0 [facility] Comment on above: Performed By: #### C BC, BMP, GFR, ADIFF, MG, ANEU #### [place] [address] MCV (RBC) [Entitic vol] 93.3 fL Normal 81.0-100.0 [facility] Comment on above: Performed By: #### C BC, BMP, GFR, ADIFF, MG, ANEU #### [place] [address] Platelet 92 10 3/mcL Low 150-450 [facility] MA[facility] Comment on above: Performed By: #### C BC, BMP, GFR, ADIFF, MG, ANEU #### [place] [address] Platelet mean volume (Bld) [Entitic vol] 11.5 fL High 6.4-10.5 [facility] Comment on above: Performed By: #### C BC, BMP, GFR, ADIFF, MG, ANEU #### [place] [address] RBC 3.29 10 6/mcL Low 4.50-6.00 [facility] Comment on above: Performed By: #### C BC, BMP, GFR, ADIFF, MG, ANEU #### [place] [address] WBC 7.7 10 3/mcL Normal 4.5-10.8 [facility] Comment on above: Performed By: #### C BC, BMP, GFR, ADIFF, MG, ANEU #### [facility] [address] [place], [place] [address] Culture, Blood (WB)on 2024 CUB Blood cultures x2, f rom two different sites No growth in 5 days. Normal [facility] Comment on above: Performed By: #### M 200.1000, [id number] ####[facility] [id number] [place], [address] LABORATORYOrdered By: SYSTEM SYSTEM on 06-29-2024 aPTT Coag (Bld) [Time] 43.7 s High 25.0 - 35.0 seconds [facility] SS Comment on above: Interpretive Data: F or Heparin anticoagulation therapy, the recommended therapeutic range is: 54-77 seconds (APTT Correlation with Anti-Xa therapeutic range of 0.3-0.7 units/ml). PLEASE REFERENCE THE PHARMACY PROTOCOL FOR DOSING. aPTT Coag (Bld) [Time] 30.5 s Normal 25.0 - 35.0 seconds [facility] SS Comment on above: Interpretive Data: F or Heparin anticoagulation therapy, the recommended therapeutic range is: 54-77 seconds (APTT Correlation with Anti-Xa therapeutic range of 0.3-0.7 units/ml). PLEASE REFERENCE THE PHARMACY PROTOCOL FOR DOSING. Basophils (Bld) [#/Vol] 0.0 103/mcL Normal 0.0 - 0.3 10^3/mcL AH Workflow SS Basophils/100 WBC (Bld) 0.3 % Normal 0.0 - 2.5 % Workflow SS Calcium [Mass/Vol] 8.7 mg/dL Normal 8.7 - 10. 4 mg/dL AH ADM SS Chloride [Moles/Vol] 101 mmol/L Normal 98 - 11 0 mEq/L ADM SS CO2 [Moles/Vol] 30 mmol/L Normal 22 - 32 mEq/L AH ADM SS Creatinine [Mass/Vol] 0.77 mg/dL Normal 0.60 - 1.40 mg/dL AH ADM SS Comment on above: Interpretive Data: T esting performed on [employer] analyzer using enzymatic creatinine methodology. Electrolyte Balance 7.0 mEq/L Normal 4.0 - 15 .0 mEq/L ADM SS Eosinophils (Bld) [#/Vol] 0.1 103/mcL Normal 0.0 - 0.7 10^3/mcL Workflow SS Eosinophils/100 WBC (Bld) 1.4 % Normal 0.0 - 6.0 % Workflow SS Erythrocyte distribution width (RBC) [Ratio] 14.9 % Normal 11.5 - 15.5 % Workflow SS GFR/1.73 sq M.predicted among blacks MDRD (S/P/Bld) [Vol rate/Area] ml/min/1.73sqm Invalid Interpretation Code [facility] Comment on above: Interpretive Data: GFR Population mean for , Non- Americans Ages 20-29 = 116 mL/min/1.73 sq.m. Ages 30-39 = 107 mL/min/1.73 sq.m. Ages 40-49 = 99 mL/min/1.73 sq.m. Ages 50-59 = 93 mL/min/1.73 sq.m. Ages 60-69 = 85 mL/min/1.73 sq.m. Ages 70+ = 75 mL/min/1.73 sq.m. Chronic Kidney Disease: Less than 60 mL/min/1.73 square meters End Stage Renal Disease: Less than 15 mL/min/1.73 square meters GFR/1.73 sq M.predicted among non-blacks MDRD (S/P/Bld) [Vol rate/Area] ml/min/1.73sqm Invalid Interpretation Code [facility] Comment on above: Interpretive Data: GFR Population mean for , Non- Americans Ages 20-29 = 116 mL/min/1.73 sq.m. Ages 30-39 = 107 mL/min/1.73 sq.m. Ages 40-49 = 99 mL/min/1.73 sq.m. Ages 50-59 = 93 mL/min/1.73 sq.m. Ages 60-69 = 85 mL/min/1.73 sq.m. Ages 70+ = 75 mL/min/1.73 sq.m. Chronic Kidney Disease: Less than 60 mL/min/1.73 square meters End Stage Renal Disease: Less than 15 mL/min/1.73 square meters Glucose [Mass/Vol] 235 mg/dL High 82 - 115 mg/dL [facility] Hematocrit (Bld) [Volume fraction] 30.7 % Low 40.0 - 52.0 % AH Workflow SS Hemoglobin (Bld) [Mass/Vol] 10.5 G/dL Low 13.0 - 17.5 G/dL AH Workflow SS Lymphocytes (Bld) [#/Vol] 1.1 103/mcL Normal 0.9 - 4.3 10^3/mcL AH Workflow SS Lymphocytes/100 WBC (Bld) 14.7 % Low 20.0 - 40.0 % AH Workflow SS Magnesium [Mass/Vol] 1.8 mg/dL Normal 1.6 - 2 .4 mg/dL AH ADM SS MCH (RBC) [Entitic mass] 31.9 pg Normal 27.0 - 33.0 pg AH Workflow SS MCHC 34.2 G/dL Normal 32.0 - 36.0 G/dL Workflow SS MCV (RBC) [Entitic vol] 93.3 fL Normal 81.0 - 100.0 fL AH Workflow SS Monocytes (Bld) [#/Vol] 0.9 103/mcL Normal 0.1 - 1.4 10^3/mcL AH Workflow SS Monocytes/100 WBC (Bld) 12.0 % Normal 2.0 - 13.0 % AH Workflow SS Neutrophils (Bld) [#/Vol] 5.5 103/mcL Normal 2.3 - 8.1 10^3/mcL AH Workflow SS Neutrophils/100 WBC (Bld) 71.6 % Normal 50.0 - 75.0 % AH Workflow SS Platelet mean volume (Bld) [Entitic vol] 11.5 fL High 6.4 - 10.5 fL Workflow SS Platelets (Bld) [#/Vol] 92 103/mcL Low 150 - 450 10^3/mcL AH Workflow SS Potassium [Moles/Vol] 3.6 mmol/L Normal 3.5 - 5.0 mEq/L ADM SS RBC (Bld) [#/Vol] 3.29 106/mcL Low 4.50 - 6.00 10^6/mcL AH Workflow SS Sodium [Moles/Vol] 138 mmol/L Normal 136 - 145 mEq/L ADM SS Urea nitrogen [Mass/Vol] 17.0 mg/dL Normal 8.0 - 22.0 mg/dL ADM SS Urea nitrogen/Creatinine [Mass ratio] 22.1 ratio High 10.0 - 22.0 ratio ADM SS WBC (Bld) [#/Vol] 7.7 103/mcL Normal 4.5 - 10.8 10^3/mcL AH Workflow SS MGon 06-29-2024 Magnesium [Mass/Vol] 1.8 mg/dL Normal 1.6-2.4 [facility] Comment on above: Performed By: #### A PTT #### [address] [address] .Auto Diffon 06-28-2024 Basophil, Absolute 0.0 10 3/mcL Normal 0.0-0.3 [facility] MA[facility] Comment on above: Performed By: #### G FR, BMP, MG #### [address] [address] Basophils/100 WBC (Bld) 0.3 % Normal 0.0-2.5 [facility] MAIN Comment on above: Performed By: #### G FR, BMP, MG #### [address] [address] Eosinophil, Absolute 0.0 10 3/mcL Normal 0.0-0.7 [facility] MAIN Comment on above: Performed By: #### G FR, BMP, MG #### [address] [address] Eosinophils/100 WBC (Bld) 0.4 % Normal 0.0-6.0 [facility]IN Comment on above: Performed By: #### G FR, BMP, MG #### [address] [address] Lymphocyte, Absolute 1.0 10 3/mcL Normal 0.9-4.3 [facility]IN Comment on above: Performed By: #### G FR, BMP, MG #### [address] [address] Lymphocytes/100 WBC (Bld) 13.6 % Low 20.0-40.0 [facility] Comment on above: Performed By: #### G FR, BMP, MG #### [address] [address] Monocyte, Absolute 0.9 10 3/mcL Normal 0.1-1.4 [facility] MAIN Comment on above: Performed By: #### G FR, BMP, MG #### [place] [id number] [place] [address] Monocytes/100 WBC (Bld) 13.2 % High 2.0-13.0 [facility] Comment on above: Performed By: #### G FR, BMP, MG #### [address] [address] Neutrophils/100 WBC (Bld) 72.5 % Normal 50.0-75.0 [facility] Comment on above: Performed By: #### G FR, BMP, MG #### [address] [address] .GFRon 06-28-2024 GFR >60 Normal [facility] MAIN Comment on above: Result Comment: GFR Population mean for , Non- Americans Ages 20-29 = 116 mL/min/1.73 sq.m. Ages 30-39 = 107 mL/min/1.73 sq.m. Ages 40-49 = 99 mL/min/1.73 sq.m. Ages 50-59 = 93 mL/min/1.73 sq.m. Ages 60-69 = 85 mL/min/1.73 sq.m. Ages 70+ = 75 mL/min/1.73 sq.m. Chronic Kidney Disease: Less than 60 mL/min/1.73 square meters End Stage Renal Disease: Less than 15 mL/min/1.73 square meters Performed By: #### G FR, BMP, MG #### [address] [address] GFR Non- >60 Normal [facility] MAIN Comment on above: Result Comment: GFR Population mean for , Non- Americans Ages 20-29 = 116 mL/min/1.73 sq.m. Ages 30-39 = 107 mL/min/1.73 sq.m. Ages 40-49 = 99 mL/min/1.73 sq.m. Ages 50-59 = 93 mL/min/1.73 sq.m. Ages 60-69 = 85 mL/min/1.73 sq.m. Ages 70+ = 75 mL/min/1.73 sq.m. Chronic Kidney Disease: Less than 60 mL/min/1.73 square meters End Stage Renal Disease: Less than 15 mL/min/1.73 square meters Performed By: #### G FR, BMP, MG #### [place] [address] .NEUABSon 06-28-2024 Neutrophil, Absolute 5.1 10 3/mcL Normal 2.3-8.1 [facility] Comment on above: Performed By: #### G FR, BMP, MG #### [place] [address] APTTon 06-28-2024 aPTT Coag (Bld) [Time] 60.4 s High 25.0-35.0 [facility] Comment on above: Result Comment: For Heparin anticoagulation therapy, the recommended therapeutic range is: 54-77 seconds (APTT Correlation with Anti-Xa therapeutic range of 0.3-0.7 units/ml). PLEASE REFERENCE THE PHARMACY PROTOCOL FOR DOSING. Performed By: #### G FR, BMP, MG #### [place] [address] aPTT Coag (Bld) [Time] 58.9 s High 25.0-35.0 [facility] Comment on above: Result Comment: For Heparin anticoagulation therapy, the recommended therapeutic range is: 54-77 seconds (APTT Correlation with Anti-Xa therapeutic range of 0.3-0.7 units/ml). PLEASE REFERENCE THE PHARMACY PROTOCOL FOR DOSING. Performed By: #### A PTT #### [place] [address] aPTT Coag (Bld) [Time] 39.8 s High 25.0-35.0 [facility] Comment on above: Result Comment: For Heparin anticoagulation therapy, the recommended therapeutic range is: 54-77 seconds (APTT Correlation with Anti-Xa therapeutic range of 0.3-0.7 units/ml). PLEASE REFERENCE THE PHARMACY PROTOCOL FOR DOSING. Performed By: #### A PTT #### [place] [address] BMPon 06-28-2024 BUN/Creatinine Ratio 25.6 ratio High 10.0-22.0 [facility] Comment on above: Performed By: #### G FR, BMP, MG #### [address] [address] Calcium [Mass/Vol] 8.8 mg/dL Normal 8.7-10.4 [facility] Comment on above: Performed By: #### DAMON CLEARY MG #### [address] [address] Chloride [Moles/Vol] 102 mmol/L Normal 98-110 [facility] Comment on above: Performed By: #### DAMON CLEARY, MG #### [address] [address] CO2 [Moles/Vol] 29 mmol/L Normal 22-32 [facility] Comment on above: Performed By: #### DAMON CLEARY MG #### [address] [address] Creatinine [Mass/Vol] 0.82 mg/dL Normal 0.60-1.40 [facility] Comment on above: Result Comment: Test ing performed on [employer] analyzer using enzymatic creatinine methodology. Performed By: #### DAMON CLEARY, MG #### [address] [address] Electrolyte Balance 7.0 mEq/L Normal 4.0-15.0 [facility] Comment on above: Performed By: #### DAMON CLEARY, MG #### [address] [address] Glucose [Mass/Vol] 277 mg/dL High 82-115 [facility] Comment on above: Performed By: #### DAMON CLEARY, MG #### [address] [address] Potassium [Moles/Vol] 3.7 mmol/L Normal 3.5-5.0 [facility] Comment on above: Performed By: #### DAMON CLEARY, MG #### [address] [address] Sodium [Moles/Vol] 138 mmol/L Normal 136-145 [facility] Comment on above: Performed By: #### DAMON CLEARY, MG #### [address] [address] Urea nitrogen [Mass/Vol] 21.0 mg/dL Normal 8.0-22.0 [facility] Comment on above: Performed By: #### DAMON CLEARY, MG #### [place] [address] CBCon 06-28-2024 Erythrocyte distribution width (RBC) [Ratio] 14.9 % Normal 11.5-15.5 [facility] Comment on above: Performed By: #### Lamberto BARKER BMP, MG #### [place] [address] Hematocrit (Bld) [Volume fraction] 31.8 % Low 40.0-52.0 [facility] Comment on above: Performed By: #### DAMON CLEARY, MG #### [place] [address] Hgb 11.0 G/dL Low 13.0-17.5 [facility] Comment on above: Performed By: #### Lamberto BARKER BMP, MG #### [place] [address] MCH (RBC) [Entitic mass] 32.4 pg Normal 27.0-33.0 [facility] Comment on above: Performed By: #### Lamberto BARKER BMP, MG #### [place] [address] MCHC 34.6 G/dL Normal 32.0-36.0 [facility] Comment on above: Performed By: #### Lamberto BARKER BMP, MG #### [place] [address] MCV (RBC) [Entitic vol] 93.5 fL Normal 81.0-100.0 [facility] Comment on above: Performed By: #### G FR BMP, MG #### [place] [address] Platelet 82 10 3/mcL Low 150-450 [facility] Comment on above: Performed By: #### Lamberto BARKER, BMP, MG #### [place] [address] Platelet mean volume (Bld) [Entitic vol] 10.9 fL High 6.4-10.5 [facility] Comment on above: Performed By: #### G FR, BMP, MG #### [facility] [address] [place] [address] RBC 3.40 10 6/mcL Low 4.50-6.00 [facility] Comment on above: Performed By: #### G FR, BMP, MG #### [facility] [address] [place] [address] WBC 7.1 10 3/mcL Normal 4.5-10.8 [facility] Comment on above: Performed By: #### G FR, BMP, MG #### [facility] [address] [place] [address] LABORATORYOrdered By: SYSTEM SYSTEM on 06-28-2024 aPTT Coag (Bld) [Time] 60.7 s High 25.0 - 35.0 seconds AH [facility] SS Comment on above: Interpretive Data: F or Heparin anticoagulation therapy, the recommended therapeutic range is: 54-77 seconds (APTT Correlation with Anti-Xa therapeutic range of 0.3-0.7 units/ml). PLEASE REFERENCE THE PHARMACY PROTOCOL FOR DOSING. Basophils (Bld) [#/Vol] 0.0 103/mcL Normal 0.0 - 0.3 10^3/mcL AH Workflow SS Basophils/100 WBC (Bld) 0.3 % Normal 0.0 - 2.5 % AH Workflow SS Eosinophils (Bld) [#/Vol] 0.0 103/mcL Normal 0.0 - 0.7 10^3/mcL AH Workflow SS Eosinophils/100 WBC (Bld) 0.4 % Normal 0.0 - 6.0 % AH Workflow SS Lymphocytes (Bld) [#/Vol] 1.0 103/mcL Normal 0.9 - 4.3 10^3/mcL AH Workflow SS Lymphocytes/100 WBC (Bld) 13.6 % Low 20.0 - 40.0 % AH Workflow SS Monocytes (Bld) [#/Vol] 0.9 103/mcL Normal 0.1 - 1.4 10^3/mcL Workflow SS Monocytes/100 WBC (Bld) 13.2 % High 2.0 - 13.0 % Workflow SS Neutrophils (Bld) [#/Vol] 5.1 103/mcL Normal 2.3 - 8.1 10^3/mcL AH Workflow SS Neutrophils/100 WBC (Bld) 72.5 % Normal 50.0 - 75.0 % Workflow SS LABORATORYOrdered By: Keenan York on 06-28-2024 Blood Glucose Interventions Notify physician (06/28/24 7:43 AM) [facility] Work Phone: MGon 06-28-2024 Magnesium [Mass/Vol] 2.1 mg/dL Normal 1.6-2.4 [facility] Comment on above: Performed By: #### G FR, BMP, MG #### [address] [address] .Auto Diffon 06-27-2024 Basophil, Absolute 0.0 10 3/mcL Normal 0.0-0.3 [facility] Comment on above: Performed By: #### G FR, BMP, MG #### [address] [address] Basophils/100 WBC (Bld) 0.3 % Normal 0.0-2.5 [facility] Comment on above: Performed By: #### G FR, BMP, MG #### [address] [address] Eosinophil, Absolute 0.0 10 3/mcL Normal 0.0-0.7 [facility] Comment on above: Performed By: #### G FR, BMP, MG #### [address] [address] Eosinophils/100 WBC (Bld) 0.3 % Normal 0.0-6.0 [facility] Comment on above: Performed By: #### G FR, BMP, MG #### [address] [address] Lymphocyte, Absolute 0.7 10 3/mcL Low 0.9-4.3 [facility] Comment on above: Performed By: #### G FR, BMP, MG #### [address] [address] Lymphocytes/100 WBC (Bld) 6.5 % Low 20.0-40.0 [facility] Comment on above: Performed By: #### G FR, BMP, MG #### [facility] [address] [place] [address] Monocyte, Absolute 1.2 10 3/mcL Normal 0.1-1.4 [facility] Comment on above: Performed By: #### G FR, BMP, MG #### [facility] [address] [place] [address] Monocytes/100 WBC (Bld) 10.8 % Normal 2.0-13.0 [facility] Comment on above: Performed By: #### G FR, BMP, MG #### [facility] [address] [place] [address] [phone] Neutrophils/100 WBC (Bld) 82.1 % High 50.0-75.0 [facility] Comment on above: Performed By: #### G FR, BMP, MG #### [address] [id number] .GFRon 06-27-2024 GFR >60 [facility] MAIN Comment on above: Result Comment: GFR Population mean for , Non- Americans Ages 20-29 = 116 mL/min/1.73 sq.m. Ages 30-39 = 107 mL/min/1.73 sq.m. Ages 40-49 = 99 mL/min/1.73 sq.m. Ages 50-59 = 93 mL/min/1.73 sq.m. Ages 60-69 = 85 mL/min/1.73 sq.m. Ages 70+ = 75 mL/min/1.73 sq.m. Chronic Kidney Disease: Less than 60 mL/min/1.73 square meters End Stage Renal Disease: Less than 15 mL/min/1.73 square meters Performed By: #### G FR, BMP, MG #### [address] [address] GFR Non- >60 [facility] MAIN Comment on above: Result Comment: GFR Population mean for , Non- Americans Ages 20-29 = 116 mL/min/1.73 sq.m. Ages 30-39 = 107 mL/min/1.73 sq.m. Ages 40-49 = 99 mL/min/1.73 sq.m. Ages 50-59 = 93 mL/min/1.73 sq.m. Ages 60-69 = 85 mL/min/1.73 sq.m. Ages 70+ = 75 mL/min/1.73 sq.m. Chronic Kidney Disease: Less than 60 mL/min/1.73 square meters End Stage Renal Disease: Less than 15 mL/min/1.73 square meters Performed By: #### G FR, BMP, MG #### [address] [address] GFR >60 [facility] MAIN Comment on above: Result Comment: GFR Population mean for , Non- Americans Ages 20-29 = 116 mL/min/1.73 sq.m. Ages 30-39 = 107 mL/min/1.73 sq.m. Ages 40-49 = 99 mL/min/1.73 sq.m. Ages 50-59 = 93 mL/min/1.73 sq.m. Ages 60-69 = 85 mL/min/1.73 sq.m. Ages 70+ = 75 mL/min/1.73 sq.m. Chronic Kidney Disease: Less than 60 mL/min/1.73 square meters End Stage Renal Disease: Less than 15 mL/min/1.73 square meters Performed By: #### G FR, BMP, MG #### [address] [address] GFR Non- >60 [facility] MAIN Comment on above: Result Comment: GFR Population mean for , Non- Americans Ages 20-29 = 116 mL/min/1.73 sq.m. Ages 30-39 = 107 mL/min/1.73 sq.m. Ages 40-49 = 99 mL/min/1.73 sq.m. Ages 50-59 = 93 mL/min/1.73 sq.m. Ages 60-69 = 85 mL/min/1.73 sq.m. Ages 70+ = 75 mL/min/1.73 sq.m. Chronic Kidney Disease: Less than 60 mL/min/1.73 square meters End Stage Renal Disease: Less than 15 mL/min/1.73 square meters Performed By: #### G FR, BMP, MG #### [address] [address] .NEUABSon 06-27-2024 Neutrophil, Absolute 8.9 10 3/mcL High 2.3-8.1 [facility] MAIN Comment on above: Performed By: #### G FR, BMP, MG #### [place] [address] 12 Lead EKGon 06-27-2024 12 Lead EKG Normal [facility] A1Con 06-27-2024 Glucose [Mass/Vol] 157 mg/dL Normal [facility] MAIN Comment on above: Result Comment: Sharron mated Average Glucose calculated by equation ((28.7xA1C)-46.7) Estimated average glucose (eAG) is a calculated value from Hemoglobin A1C and is community engagement representative of the average blood glucose level in the last 2-3 month period. Normal range: less than 114 mg/dL Performed By: #### G FR, BMP, MG #### [place] [address] HbA1c (Bld) [Mass fraction] 7.1 % High 4.0-6.0 [facility] MAIN Comment on above: Performed By: #### G FR, BMP, MG #### [place] [address] APTTon 06-27-2024 aPTT Coag (Bld) [Time] 35.3 s High 25.0-35.0 [facility] MAIN Comment on above: Result Comment: For Heparin anticoagulation therapy, the recommended therapeutic range is: 54-77 seconds (APTT Correlation with Anti-Xa therapeutic range of 0.3-0.7 units/ml). PLEASE REFERENCE THE PHARMACY PROTOCOL FOR DOSING. Performed By: #### G FR, BMP, MG #### [place] [address] aPTT Coag (Bld) [Time] 30.3 s Normal 25.0-35.0 [facility] MAIN Comment on above: Result Comment: For Heparin anticoagulation therapy, the recommended therapeutic range is: 54-77 seconds (APTT Correlation with Anti-Xa therapeutic range of 0.3-0.7 units/ml). PLEASE REFERENCE THE PHARMACY PROTOCOL FOR DOSING. Performed By: #### A PTT #### [address] [address] Absolute lymphocyte countOrd ered By: Jessi Kaur on 06-27-2024 Lymphocytes Auto (Unsp spec) [#/Vol] 1.68 10*3/uL 0.83-4.51 [facility] Absolute neutrophil countOrd ered By: Jessi Kaur on 06-27-2024 Neutrophils (Bld) [#/Vol] 4.3 10*3/uL 2.0-7.7 [facility] Albumin to globulin ratioOrd ered By: Jessi Kaur on 06-27-2024 Albumin/Globulin [Mass ratio] 0.7 {ratio} Low 0.9-2.4 [facility] Arterial patency Wrist arter y --pre arterial punctureOrdered By: Jessi Kaur on 06-27-2024 Edgar Test Positive [facility] Assessment of wrist artery p atency prior to arterial punctureOrdered By: Jessi Kaur on 06-27-2024 Arterial patency Wrist artery --pre arterial puncture Positive [facility] Automated lymphocyte count a s percentage of total leukocytesOrdered By: Jessi Kaur on 06-27-2024 Lymphocytes/100 WBC Auto (Unsp spec) 24.4 % 19-41 [facility] BMPon 06-27-2024 BUN/Creatinine Ratio 27.9 ratio High 10.0-22.0 [facility] MAIN Comment on above: Performed By: #### G FR, BMP, MG #### [address] [address] Calcium [Mass/Vol] 9.1 mg/dL Normal 8.7-10.4 [facility] MAIN Comment on above: Performed By: #### G FR, BMP, MG #### [address] [address] Chloride [Moles/Vol] 101 mmol/L Normal 98-110 [facility] MAIN Comment on above: Performed By: #### G FR, BMP, MG #### [address] [address] CO2 [Moles/Vol] 26 mmol/L Normal 22-32 [facility] MAIN Comment on above: Performed By: #### G FR, BMP, MG #### [address] [address] Creatinine [Mass/Vol] 0.86 mg/dL Normal 0.60-1.40 [facility] MAIN Comment on above: Result Comment: Test ing performed on [employer] analyzer using enzymatic creatinine methodology. Performed By: #### G FR, BMP, MG #### [address] [address] Electrolyte Balance 9.0 mEq/L Normal 4.0-15.0 [facility] MAIN Comment on above: Performed By: #### G FR, BMP, MG #### [address] [address] Glucose [Mass/Vol] 302 mg/dL High 82-115 [facility] MAIN Comment on above: Performed By: #### G FR, BMP, MG #### [address] [address] Potassium [Moles/Vol] 3.8 mmol/L Normal 3.5-5.0 [facility] MAIN Comment on above: Performed By: #### G FR, BMP, MG #### [address] [address] Sodium [Moles/Vol] 136 mmol/L Normal 136-145 [facility] MAIN Comment on above: Performed By: #### G FR, BMP, MG #### [address] [address] Urea nitrogen [Mass/Vol] 24.0 mg/dL High 8.0-22.0 [facility] MAIN Comment on above: Performed By: #### G FR, BMP, MG #### [address] [address] Base excess Calc (BldV) [Mol es/Vol]Ordered By: Jessi Kaur on 06-27-2024 Blood Gas Base Excess -2 mmol/L -2-2 [facility] Basophil percentageOrdered B y: Jessi Kaur on 06-27-2024 Basophils/100 WBC (Bld) 0.6 % 0-1 [facility] Bilirubin, totalOrdered By: Jessi Kaur on 06-27-2024 Bilirubin [Mass/Vol] 0.90 mg/dL 0.20-1.00 [facility] Comment on above: For patients on eltr ombopag therapy, use of Dimension Rulo TBIL is not recommended. [facility] EDGAR TEST Positive [facility] Comment on above: Performed By: #### L 9000.0800 ####[facility] [address] [place], [address] Base excess Calc (Bld) [Moles/Vol] -2 mmol/L Normal -2 to +2 [facility] Comment on above: Performed By: #### L 9000.0800 ####[facility] [address] [place], [address] Blood Gas Type ART [facility] Comment on above: Performed By: #### L 9000.0800 ####[facility] [address] [place], [address] CO2 [Moles/Vol] 24 mmol/L [facility] Comment on above: Performed By: #### L 9000.0800 ####[facility] [address] [place], [address] FI02 2.0 [facility] Comment on above: Performed By: #### L 9000.0800 ####[facility] [address] [place], [address] HCO3 (Bld) [Moles/Vol] 23.0 mmol/L Normal 22-26 [facility] Comment on above: Performed By: #### L 9000.0800 ####[facility] [address] [place], [address] Mode Not entered [facility] Comment on above: Performed By: #### L 9000.0800 ####[facility] [address] [place], [address] O2 Delivery Dev Cannula [facility] Comment on above: Performed By: #### L 9000.0800 ####[facility] [address] [place], [address] pCO2 38.3 mmHg Normal 35-45 [facility] Comment on above: Performed By: #### L 9000.0800 ####[facility] [address] [place], [address] pH (Bld) 7.39 [pH] Normal 7.35-7.45 [facility] Comment on above: Performed By: #### L 9000.0800 ####[facility] [address] [place], [address] PO2 50 mmHG Low 75-100 [facility] Comment on above: Performed By: #### L 9000.0800 ####[facility] [address] [place], [address] SITE L Radial Normal [facility] Comment on above: Performed By: #### L 9000.0800 ####[facility] [address] [place], [address] SO2 84 Low 95-99 [facility] Comment on above: Performed By: #### L 9000.0800 ####[facility] [address] [place], [address] Blood base excess determinat ionOrdered By: Jessi Kaur on 06-27-2024 Base excess Calc (BldV) [Moles/Vol] -2 mmol/L -2-2 [facility] Blood bicarbonate measuremen tOrdered By: Jessi Kaur on 06-27-2024 Blood Gas Bicarbonate Actual 23.0 mmol/L [facility] HCO3 (Bld) [Moles/Vol] 23.0 mmol/L [facility] Blood manual differential co mment interpretation (narrative result)Ordered By: Jessi Kaur on 06-27-2024 Manual differential comment Royer (Bld) [Interp] SCANNED [facility] Blood urea nitrogen (BUN)/cr eatinine ratioOrdered By: Jessi Kaur on 06-27-2024 Urea nitrogen/Creatinine [Mass ratio] 24.1 mg/mg High 10-20 [facility] CBCon 06-27-2024 Erythrocyte distribution width (RBC) [Ratio] 15.0 % Normal 11.5-15.5 [facility] MAIN Comment on above: Performed By: #### G FR, BMP, MG #### [place] [address] Hematocrit (Bld) [Volume fraction] 35.3 % Low 40.0-52.0 [facility] MAIN Comment on above: Performed By: #### G FR, BMP, MG #### [place] [address] Hgb 12.0 G/dL Low 13.0-17.5 [facility] MAIN Comment on above: Performed By: #### G FR, BMP, MG #### [place] [address] MCH (RBC) [Entitic mass] 32.1 pg Normal 27.0-33.0 [facility] MAIN Comment on above: Performed By: #### G FR, BMP, MG #### [place] [address] MCHC 34.2 G/dL Normal 32.0-36.0 [facility] MAIN Comment on above: Performed By: #### G FR, BMP, MG #### [place] [address] MCV (RBC) [Entitic vol] 94.1 fL Normal 81.0-100.0 [facility] MAIN Comment on above: Performed By: #### G FR, BMP, MG #### [place] [address] Platelet 119 10 3/mcL Low 150-450 [facility] MAIN Comment on above: Performed By: #### G FR, BMP, MG #### [place] [address] Platelet mean volume (Bld) [Entitic vol] 10.8 fL High 6.4-10.5 [facility] MAIN Comment on above: Performed By: #### G FR, BMP, MG #### [facility] [address] [place] [address] RBC 3.75 10 6/mcL Low 4.50-6.00 [facility] MAIN Comment on above: Performed By: #### G FR, BMP, MG #### [facility] [address] [place] [address] WBC 10.8 10 3/mcL Normal 4.5-10.8 [facility] MAIN Comment on above: Performed By: #### G FR, BMP, MG #### [facility] [address] [place] [address] CBC W/Diff, Automatedon 06-04 PLT EST ADEQUATE Normal ADEQ [facility] Comment on above: Performed By: #### L 501.5200, L500.4050, L100.0100, L501.2300 ####[facility] [address] [place], [address] PLT MORPH CLUMPED Normal [facility] Comment on above: Performed By: #### L 501.5200, L500.4050, L100.0100, L501.2300 ####[facility] [address] [place], [address] RED CELL MORPH NORM C+C Normal NORM C C [facility] Comment on above: Performed By: #### L 501.5200, L500.4050, L100.0100, L501.2300 ####[facility] [address] [place], [address] SMEAR COMMENT SCANNED Normal [facility] Comment on above: Performed By: #### L 501.5200, L500.4050, L100.0100, L501.2300 ####[facility] [address] [place], [address] PLT Normal 150-450 [facility] Comment on above: Result Comment: Plea se note: For this sample, a platelet estimate isprovided rather than a platelet count due to plateletclumping. Other parameters associated with this sample arenot affected by platelet clumping. If a more accurateplatelet count is required, a redraw of the patient will benecessary. Performed By: #### L 501.5200, L500.4050, L100.0100, L501.2300 ####[facility] [address] [place], [address] [facility] Albumin Level 3.0 G/dL Low 3.2-4.8 [facility] MAIN Comment on above: Performed By: #### G FR BMP, MG #### [place] [address] Albumin/Globulin [Mass ratio] 0.8 {ratio} Low 0.9-1.6 [facility] MAIN Comment on above: Performed By: #### Lamberto FR BMP, MG #### [place] [address] ALP [Catalytic activity/Vol] 98 U/L Normal 38-126 [facility] MAIN Comment on above: Performed By: #### Lamberto BARKER BMP, MG #### [place] [address] ALT [Catalytic activity/Vol] 30 U/L Normal 12-55 [facility] MAIN Comment on above: Performed By: #### G FR BMP, MG #### [place] [address] AST [Catalytic activity/Vol] 29 U/L Normal 8-34 [facility] MAIN Comment on above: Performed By: #### G FR, BMP, MG #### [place] [address] Bili Total 1.00 mg/dL Normal 0.20-1.20 [facility] MAIN Comment on above: Result Comment: Use of this assay is not recommended for patients undergoing treatment with eltrombopag due to the potential for falsely elevated results. Performed By: #### G FR, BMP, MG #### [place] [address] BUN/Creatinine Ratio 27.8 ratio High 10.0-22.0 [facility] MAIN Comment on above: Performed By: #### G FR BMP, MG #### [address] [address] Calcium [Mass/Vol] 9.0 mg/dL Normal 8.7-10.4 [facility] MAIN Comment on above: Performed By: #### G FR, BMP, MG #### [address] [address] Chloride [Moles/Vol] 104 mmol/L Normal 98-110 [facility] MAIN Comment on above: Performed By: #### G FR, BMP, MG #### [place] [address] CO2 [Moles/Vol] 24 mmol/L Normal 22-32 [facility] MAIN Comment on above: Performed By: #### Lamberto FR, BMP, MG #### [place] [address] Creatinine [Mass/Vol] 0.79 mg/dL Normal 0.60-1.40 [facility] MAIN Comment on above: Result Comment: Test ing performed on [employer] analyzer using enzymatic creatinine methodology. Performed By: #### Lamberto FR, BMP, MG #### [place] [address] Electrolyte Balance 10.0 mEq/L Normal 4.0-15.0 [facility] MAIN Comment on above: Performed By: #### G FR, BMP, MG #### [address] [address] Globulin 3.9 G/dL High 1.5-3.8 [facility] MAIN Comment on above: Performed By: #### G FR, BMP, MG #### [place] [address] Glucose [Mass/Vol] 282 mg/dL High 82-115 [facility] MAIN Comment on above: Performed By: #### G FR, BMP, MG #### [place] [address] Potassium [Moles/Vol] 3.8 mmol/L Normal 3.5-5.0 [facility] MAIN Comment on above: Performed By: #### G FR, BMP, MG #### [facility] [address] [place] [address] Sodium [Moles/Vol] 138 mmol/L Normal 136-145 [facility] MAIN Comment on above: Performed By: #### G FR, BMP, MG #### [facility] [address] [place] [address] Total Protein 6.9 G/dL Normal 5.7-8.2 [facility] MAIN Comment on above: Performed By: #### G FR, BMP, MG #### [facility] [address] [place] [address] Urea nitrogen [Mass/Vol] 22.0 mg/dL Normal 8.0-22.0 [facility] MAIN Comment on above: Performed By: #### G FR, BMP, MG #### [facility] [address] [place] [address] Carbon dioxide measurementOr dered By: Jessi Kaur on 06-27-2024 CO2 [Moles/Vol] 25.0 mmol/L 21.0-32.0 [facility] Chest 1 View (Portable)on Chest 1 View (Portable) Normal [facility] Chloride measurementOrdered By: Jessi Kaur on 06-27-2024 Chloride [Moles/Vol] 106 mmol/L 98-107 [facility] Comprehensive Metabolic Prof ilon 06-27-2024 Albumin [Mass/Vol] 2.8 g/dL Low 3.2-5.0 [facility] Comment on above: Performed By: #### L 501.5200, L500.4050, L100.0100, L501.2300 ####[facility] [address] [place], [place], [address] Albumin/Globulin [Mass ratio] 0.7 {ratio} Low 0.9-2.4 [facility] Comment on above: Performed By: #### L 501.5200, L500.4050, L100.0100, L501.2300 ####[facility] [address] [place], [address] ALK P 91 U/L Normal 45-117 [facility] Comment on above: Performed By: #### L 501.5200, L500.4050, L100.0100, L501.2300 ####[facility] [address] [place], [address] ALT [Catalytic activity/Vol] 33 U/L Normal 16-61 [facility] Comment on above: Performed By: #### L 501.5200, L500.4050, L100.0100, L501.2300 ####[facility] [address] [place], [address] AST [Catalytic activity/Vol] 27 U/L Normal 15-37 [facility] Comment on above: Performed By: #### L 501.5200, L500.4050, L100.0100, L501.2300 ####[facility] [address] [place], [address] Bilirubin [Mass/Vol] 0.90 mg/dL Normal 0.20-1.00 [facility] Comment on above: Result Comment: For patients on eltrombopag therapy, use of Dimension Rulo TBIL is not recommended. Performed By: #### L 501.5200, L500.4050, L100.0100, L501.2300 ####[facility] [address] [place], [address] BUN/CRE 24.1 RATIO High 10-20 [facility] Comment on above: Performed By: #### L 501.5200, L500.4050, L100.0100, L501.2300 ####[facility] [address] [place], [address] CA,Total 8.8 mg/dL Normal 8.5-10.1 [facility] Comment on above: Performed By: #### L 501.5200, L500.4050, L100.0100, L501.2300 ####[facility] [address] [place], [address] Chloride [Moles/Vol] 106 mmol/L Normal 98-107 [facility] Comment on above: Performed By: #### L 501.5200, L500.4050, L100.0100, L501.2300 ####[facility] [address] [place], [address] CO2 [Moles/Vol] 25.0 mmol/L Normal 21.0-32.0 [facility] Comment on above: Performed By: #### L 501.5200, L500.4050, L100.0100, L501.2300 ####[facility] [address] [place], [address] Creatinine [Mass/Vol] 1.00 mg/dL Normal 0.70-1.30 [facility] Comment on above: Result Comment: The validity of the calculated GFR GFRAA in patients over70 years has not been determined. Clinical correlation isessential. Performed By: #### L 501.5200, L500.4050, L100.0100, L501.2300 ####[facility] [address] [place], [address] ECRCL 83.68 ml/min Normal [facility] Comment on above: Performed By: #### L 501.5200, L500.4050, L100.0100, L501.2300 ####[facility] [address] [place], [address] EST GFR - AA 94 mL/min Normal >60 [facility] Comment on above: Result Comment: Afri can [place] GFR Calc Performed By: #### L 501.5200, L500.4050, L100.0100, L501.2300 ####[facility] [address] [place], [address] GAP 7 Normal 5-15 [facility] Comment on above: Performed By: #### L 501.5200, L500.4050, L100.0100, L501.2300 ####[facility] [address] [place], [address] GFR/1.73 sq M.predicted among non-blacks MDRD (S/P/Bld) [Vol rate/Area] 77 mL/min/{1.73_m2} Normal >60 [facility] Comment on above: Result Comment: Non- GFR Calc Performed By: #### L 501.5200, L500.4050, L100.0100, L501.2300 ####[facility] [address] [place], [address] Globulin (S) [Mass/Vol] 4.1 g/dL Normal 2.2-4.2 [facility] Comment on above: Performed By: #### L 501.5200, L500.4050, L100.0100, L501.2300 ####[facility] [address] [place], [address] Glucose [Mass/Vol] 244 mg/dL High 74-106 [facility] Comment on above: Result Comment: Gluc ose result greater than or equal to 200 mg/dLsuggests DIABETES MELLITUS per A.D.A. criteria. Performed By: #### L 501.5200, L500.4050, L100.0100, L501.2300 ####[facility] [address] [place], [address] Potassium [Moles/Vol] 3.3 mmol/L Low 3.5-5.1 [facility] Comment on above: Performed By: #### L 501.5200, L500.4050, L100.0100, L501.2300 ####[facility] [address] [place], [address] Sodium [Moles/Vol] 139 mmol/L Normal 136-145 [facility] Comment on above: Performed By: #### L 501.5200, L500.4050, L100.0100, L501.2300 ####[facility] [address] [place], [address] T PROT 6.9 g/dL Normal 6.4-8.2 [facility] Comment on above: Performed By: #### L 501.5200, L500.4050, L100.0100, L501.2300 ####[facility] [address] [place], [address] Urea nitrogen [Mass/Vol] 24 mg/dL High 7-18 [facility] Comment on above: Performed By: #### L 501.5200, L500.4050, L100.0100, L501.2300 ####[facility] [address] [place], [address] Determination of fraction of inspired oxygenOrdered By: Jessi Kaur on 06-27-2024 Blood Gas Oxygen Percent 2.0 [facility] Echo Limited w/Contraston Echo Limited w/Contrast Normal [facility] Eosinophil percentageOrdered By: Jessi Kaur on 06-27-2024 Eosinophils/100 WBC (Bld) 1.9 % 0-5 [facility] Erythrocyte distribution wid th (RBC) [Ratio]Ordered By: Jessi Kaur on 06-27-2024 Erythrocyte distribution width (RBC) [Entitic vol] 49.0 fL High 35.1-43.9 [facility] Erythrocyte distribution wid th ratioOrdered By: Jessi Kaur on 06-27-2024 Erythrocyte distribution width (RBC) [Ratio] 14.3 % 11.6-14.6 [facility] Erythrocyte distribution wid th standard deviationOrdered By: Jessi Kaur on 06-27-2024 Erythrocyte distribution width (RBC) [Ratio] 49.0 fl High 35.1-43.9 [facility] Erythrocyte morphology asses smentOrdered By: Jessi Kaur on 06-27-2024 RBC morphology finding Nom (Bld) NORM C+C NORMAL NORM C&C [facility] Estimated glomerular filtrat ion rate (GFR) AmericanOrdered By: Jessi Kaur on 06-27-2024 Estimated GFR (MDRD) Amer 94 mL/min >60 [facility] Comment on above: GFR Calc Estimation of creatinine dennys aranceOrdered By: Jessi Karu on 06-27-2024 Estimated Creatinine Clearance Calc 83.68 ml/min [facility] Glomerular filtration rate ( GFR) estimationOrdered By: Jessi Kaur on 06-27-2024 Estimated GFR (MDRD) Non-Af Amer 77 mL/min >60 [facility] Comment on above: Non- GFR Calc GFR/1.73 sq M.predicted among non-blacks MDRD (S/P/Bld) [Vol rate/Area] 77 mL/min/{1.73_m2} >60 [facility] Glucose measurementOrdered B y: Jessi Kaur on 06-27-2024 Glucose [Mass/Vol] 244 mg/dL High 74-106 [facility] Comment on above: Glucose result great er than or equal to 200 mg/dLsuggests DIABETES MELLITUS per A.D.A. criteria. Hematocrit Auto (Bld) [Volum e fraction]Ordered By: Jessi Kaur on 06-27-2024 Hematocrit (Bld) [Volume fraction] 34.5 % Low 40-54 [facility] Hemoglobin measurementOrdere d By: Jessi Kaur on 06-27-2024 Hemoglobin (Bld) [Mass/Vol] 11.7 g/dL Low 13.0-16.5 [facility] Immature granulocytes/100 WB C Auto (Bld)Ordered By: Jessi Kaur on 06-27-2024 Immature granulocytes/100 WBC (Bld) 2.200 % High 0.0-0.9 [facility] Comment on above: IG% - Immature Granu locytes (promyelocytes, myelocytes and metamyelocytes) > 1% indicates that a LEFT SHIFT is Present. International normalized rat io (INR) calculationOrdered By: Jessi Kaur on 06-27-2024 INR Coag (Bld) [Relative time] 1.3 {INR} [facility] LABORATORYOrdered By: SYSTEM SYSTEM on 06-27-2024 Lactate [Moles/Vol] 2.7 mmol/L High 0.5 - 2. 2 mmol/L ADM SS Lactate [Moles/Vol] 2.7 mmol/L High 0.5 - 2. 2 mmol/L AH ADM SS Albumin BCP dye [Mass/Vol] 3.0 G/dL Low 3.2 - 4.8 G/dL AH ADM SS Albumin/Globulin [Mass ratio] 0.8 {ratio} Low 0.9 - 1.6 ratio AH ADM SS ALP [Catalytic activity/Vol] 98 U/L Normal 38 - 126 U/L ADM SS ALT No additional P-5'-P [Catalytic activity/Vol] 30 U/L Normal 12 - 55 U/L ADM SS AST [Catalytic activity/Vol] 29 U/L Normal 8 - 34 U/L ADM SS Bilirubin [Mass/Vol] 1.00 mg/dL Normal 0.20 - 1.20 mg/dL ADM SS Comment on above: Interpretive Data: U se of this assay is not recommended for patients undergoing treatment with eltrombopag due to the potential for falsely elevated results. Globulin 3.9 G/dL High 1.5 - 3.8 G/dL ADM SS Glucose [Mass/Vol] 157 mg/dL Invalid Interpretation Code [facility] Comment on above: Interpretive Data: E stimated average glucose (eAG) is a calculated value from Hemoglobin A1C and is community engagement representative of the average blood glucose level in the last 2-3 month period. Normal range: less than 114 mg/dL HbA1c (Bld) [Mass fraction] 7.1 % High 4.0 - 6.0 % Auto Chem SS Lactate [Moles/Vol] 2.7 mmol/L High 0.5 - 2. 2 mmol/L ADM SS Natriuretic peptide.B prohormone N-Terminal IA [Mass/Vol] 1187 pg/mL Normal 0 - 1800 pg/mL ADM SS Protein [Mass/Vol] 6.9 G/dL Normal 5.7 - 8.2 G/dL ADM SS PT Coag (PPP) [Time] 14.3 s Normal 9.0 - 1 4.4 seconds [facility] Comment on above: Interpretive Data: E ffective 12/16/07, Protime results may be affected by some antibiotics (i.e. Ciprofloxacin, Azithromycin, Bactrim) which may potentiate the action of oral anticoagulants, with further increases in Protime/INR. PT International Ratio 1.2 ratio Invalid Interpretation Code [facility] SS Comment on above: Interpretive Data: Dean lopez [employer] (CHEST, 1991, 102:312S-25S) recommended therapeutic range for oral anticoagulant therapy is: LOW RISK: Prophylaxis of venous thrombosis INR: 2.0-3.0 Treatment of pulmonary embolism 2.0-3.0 Prevention of systemic embolism 2.0-3.0 HIGH RISK: Mechanical prosthetic valves 2.5-3.5 TSH Qn 2.003 mIU/mL Normal 0.550 - 4.780 mIU/mL [facility] LABORATORYOrdered By: Charley Lewis on 06-27-2024 Blood Glucose Interventions Notify physician (06/27/24 4:25 PM) [facility] Work Phone: LABORATORYOrdered By: Marina browne on 06-27-2024 Cholesterol [Mass/Vol] 114 mg/dL Normal 50 - 199 mg/dL [facility] Comment on above: Interpretive Data: C holesterol Reference Interval: Less than 200 Desirable 200-239 Borderline high risk 240 and above High risk Cholesterol in HDL [Mass/Vol] 43 mg/dL Normal 40 - 59 mg/dL ADM SS Cholesterol in LDL [Mass/Vol] 56 mg/dL Normal 0 - 129 mg/dL ADM Triglyceride [Mass/Vol] 76 mg/dL Normal 3 - 149 mg/dL [facility] LACon 06-27-2024 Lactic Acid Lvl 2.7 mmol/L High 0.5-2.2 [facility] Comment on above: Performed By: #### G FR, BMP, MG #### [address] [address] Lactic Acid Lvl 2.7 mmol/L High 0.5-2.2 [facility] Comment on above: Order Comment: Order ed secondary to Lactic Acid result greater than or equal to 2.0 Performed By: #### A PTT #### [address] [address] Lactic Acid Lvl 2.7 mmol/L High 0.5-2.2 [facility] Comment on above: Performed By: #### G FR, BMP, MG #### [address] [address] LIPIDon 06-27-2024 Cholesterol [Mass/Vol] 114 mg/dL Normal 50-199 [facility] Comment on above: Result Comment: Chol esterol Reference Interval: Less than 200 Desirable 200-239 Borderline high risk 240 and above High risk Performed By: #### G FR, BMP, MG #### [address] [address] Cholesterol in HDL [Mass/Vol] 43 mg/dL Normal 40-59 [facility] Comment on above: Performed By: #### G FR, BMP, MG #### [address] [address] Cholesterol in LDL [Mass/Vol] 56 mg/dL Normal 0-129 [facility] Comment on above: Performed By: #### G FR, BMP, MG #### [address] [address] Triglyceride [Mass/Vol] 76 mg/dL Normal 3-149 [facility] Comment on above: Performed By: #### G FR, BMP, MG #### [address] [address] Laboratory - Chemistry and C hemistry - challengeOrdered By: Jessi Kaur on 06-27-2024 AST [Catalytic activity/Vol] 27 U/L 15-37 [facility] Lymphocytes Auto (Unsp spec) [#/Vol]Ordered By: Jessi Kaur on 06-27-2024 Lymphocytes (Bld) [#/Vol] 1.68 10*3/uL 0.83-4.51 [facility] Lymphocytes/100 WBC Auto (Un sp spec)Ordered By: Jessi Kaur on 06-27-2024 Lymphocytes/100 WBC (Bld) 24.4 % 19-41 [facility] MCV (mean corpuscular volume ) determinationOrdered By: Jessi Kaur on 06-27-2024 MCV (RBC) [Entitic vol] 94.0 fL 80-94 [facility] MGon 06-27-2024 Magnesium [Mass/Vol] 2.3 mg/dL Normal 1.6-2.4 [facility] Comment on above: Performed By: #### G FR, BMP, MG #### [facility] [address] [place] [address] Magnesium [Mass/Vol] 1.7 mg/dL Normal 1.6-2.4 [facility] Comment on above: Performed By: #### G FR, BMP, MG #### [facility] [address] [place] [address] Magnesiumon 06-27-2024 Magnesium [Mass/Vol] 1.6 mg/dL Normal 1.6-2.6 [facility] Comment on above: Performed By: #### L 501.5200, L500.4050, L100.0100, L501.2300 ####[facility] [address] [place], [address] Magnesium measurementOrdered By: Jessi Kaur on 06-27-2024 Magnesium [Mass/Vol] 1.6 mg/dL 1.6-2.6 [facility] Manual differential comment Royer (Bld) [Interp]Ordered By: Jessi Kaur on 06-27-2024 Differential Comment SCANNED [facility] Mean corpuscular hemoglobin (MCH) determinationOrdered By: Jessi Kaur on 06-27-2024 MCH (RBC) [Entitic mass] 31.9 pg 27.0-32.0 [facility] Mean corpuscular hemoglobin concentration (MCHC) determinationOrdered By: Jessi Kaur on 06-27-2024 MCHC (RBC) [Mass/Vol] 33.9 g/dL 32-36 [facility] Measurement, pHOrdered By: Camryn Kaur on 06-27-2024 pH (Unsp spec) 7.39 [pH] 7.35-7.45 [facility] Monocyte percentageOrdered B y: Jessi Kaur on 06-27-2024 Monocytes/100 WBC (Bld) 9.0 % 0-10 [facility] Neutrophil percentageOrdered By: Jessi Kaur on 06-27-2024 Neutrophils/100 WBC (Bld) 61.9 % 47-70 [facility] No Panel InformationOrdered By: Jessi Kaur on 06-27-2024 27 U/L 15-37 [facility] Blood Gas Sample Site L Radial [facility] Blood Gas Specimen Type ART [facility] Blood Gas Vent Mode Not entered [facility] Oxygen Delivery Device Cannula [facility] ART [facility] L Radial [facility] Not entered [facility] Cannula [facility] Nucleated red blood cell per centageOrdered By: Jessi Kaur on 06-27-2024 Nucleated RBC/100 WBC (Bld) [Ratio] 0.3 % 0-5 [facility] Oxygen saturation measuremen tOrdered By: Jessi Kaur on 06-27-2024 Blood Gas Oxygen Saturation 84 % Low 95-99 [facility] PBNPon 06-27-2024 Natriuretic peptide B (Bld) [Mass/Vol] 1187 pg/mL Normal 0-1800 [facility] Comment on above: Performed By: #### G FR, BMP, MG #### [facility] [address] [place] [address] PROon 06-27-2024 INR Coag (PPP) [Relative time] 1.2 {INR} Normal [facility] Comment on above: Result Comment: [employer] (CHEST, 1991, 102:312S-25S) recommended therapeutic range for oral anticoagulant therapy is: LOW RISK: Prophylaxis of venous thrombosis INR: 2.0-3.0 Treatment of pulmonary embolism 2.0-3.0 Prevention of systemic embolism 2.0-3.0 HIGH RISK: Mechanical prosthetic valves 2.5-3.5 Performed By: #### G FR, BMP, MG #### [facility] [address] [place] [address] PT Coag (PPP) [Time] 14.3 s Normal 9.0-14.4 [facility] Comment on above: Result Comment: Effe ctive 12/16/07, Protime results may be affected by some antibiotics (i.e. Ciprofloxacin, Azithromycin, Bactrim) which may potentiate the action of oral anticoagulants, with further increases in Protime/INR. Performed By: #### G FR, BMP, MG #### [facility] [address] [place] [address] Partial pressure of carbon d ioxide measurementOrdered By: Jessi Kaur on 06-27-2024 Arterial Blood Partial Pressure CO2 38.3 mmHg 35-45 [facility] Partial pressure of oxygen m easurementOrdered By: Jessi Kaur on 06-27-2024 Arterial Blood Partial Pressure O2 50 mmHG Low 75-100 [facility] Phosphoruson 06-27-2024 Phosphate [Mass/Vol] 2.7 mg/dL Normal 2.5-4.9 [facility] Comment on above: Performed By: #### L 501.5200, L500.4050, L100.0100, L501.2300 ####[facility] [address] [place], [address] Phosphorus measurementOrdere d By: Jessi Kaur on 06-27-2024 Phosphorus Level 2.7 mg/dL 2.5-4.9 [facility] Platelet countOrdered By: Oscar Kaur on 06-27-2024 Platelet Count See comment 150-450 [facility] Comment on above: Please note: For thi s sample, a platelet estimate is provided rather than a platelet count due to platelet clumping. Other parameters associated with this sample are not affected by platelet clumping. If a more accurate platelet count is required, a redraw of the patient will be necessary. Platelet estimateOrdered By: Jessi Kaur on 06-27-2024 Platelets LM Ql (Bld) ADEQUATE ADEQ [facility] Platelet morphologyOrdered B y: Jessi Kaur on 06-27-2024 Platelet morphology finding Nom (Bld) CLUMPED [facility] Platelet morphology finding Nom (Bld)Ordered By: Jessi Kaur on 06-27-2024 Platelet Morphology Comment CLUMPED [facility] Platelets LM Ql (Bld)Ordered By: Jessi Kaur on 06-27-2024 Platelet Estimate ADEQUATE [facility] Potassium measurementOrdered By: Jessi Kaur on 06-27-2024 Potassium [Moles/Vol] 3.3 mmol/L Low 3.5-5.1 [facility] Prothrombin Time w/INRon INR Coag (PPP) [Relative time] 1.3 {INR} Normal [facility] Comment on above: Performed By: #### L 300.3900 ####[facility] [address] [place], [place], [id number] PT Coag (PPP) [Time] 16.1 s High 11.7-14.9 [facility] Comment on above: Performed By: #### L 300.3900 ####[facility] [address] [place], [place], [id number] Prothrombin timeOrdered By: Jessi Kaur on 06-27-2024 PT Coag (PPP) [Time] 16.1 s High 11.7-14.9 [facility] RBC Auto (Bld) [#/Vol]Ordere d By: Jessi Kaur on 06-27-2024 RBC (Bld) [#/Vol] 3.67 10*6/uL Low 4.6-6.2 [facility] RBC morphology finding Nom ( Bld)Ordered By: Jessi Kaur on 06-27-2024 Red Blood Cell Morphology NORM C+C NORMAL NORM C&C [facility] Serum anion gap measurementO rdered By: Jessi Kaur on 06-27-2024 Anion gap [Moles/Vol] 7 mmol/L 5-15 [facility] Serum globulin measurementOr dered By: Jessi Kaur on 06-27-2024 Globulin (S) [Mass/Vol] 4.1 g/dL 2.2-4.2 [facility] Serum or plasma alanine grace otransferase (ALT) measurementOrdered By: Jessi Kaur on 06-27-2024 ALT [Catalytic activity/Vol] 33 U/L 16-61 [facility] Serum or plasma albumin shweta urement (mass/volume)Ordered By: Jessi Kaur on 06-27-2024 Albumin [Mass/Vol] 2.8 g/dL Low 3.2-5.0 [facility] Serum or plasma alkaline gibson sphatase measurementOrdered By: Jessi Kaur on 06-27-2024 ALP [Catalytic activity/Vol] 91 U/L 45-117 [facility] Serum or plasma calcium shweta urement (mass/volume)Ordered By: Jessi Kaur on 06-27-2024 Calcium [Mass/Vol] 8.8 mg/dL 8.5-10.1 [facility] Serum or plasma creatinine m easurement (mass/volume)Ordered By: Jessi Kaur on 06-27-2024 Creatinine [Mass/Vol] 1.00 mg/dL 0.70-1.30 [facility] Comment on above: The validity of the calculated GFR & GFRAA in patients over 70 years has not been determined. Clinical correlation is essential. Serum or plasma urea nitroge n measurement (mass/volume)Ordered By: Jessi Kaur on 06-27-2024 Urea nitrogen [Mass/Vol] 24 mg/dL High 7-18 [facility] Sodium levelOrdered By: Jessi Kaur on 06-27-2024 Sodium [Moles/Vol] 139 mmol/L 136-145 [facility] TSHRon 06-27-2024 TSH 2.003 mIU/mL Normal 0.550-4.78 0 [facility] Comment on above: Performed By: #### G FR, BMP, MG #### [place] [address] Total carbon dioxide measure mentOrdered By: Jessi Kaur on 06-27-2024 Blood Gas Total CO2 24 mmol/L [facility] CO2 [Moles/Vol] 24 mmol/L [facility] Total proteinOrdered By: Ana Luisa Kaur on 06-27-2024 Protein [Mass/Vol] 6.9 g/dL 6.4-8.2 [facility] White blood cell (WBC) count Ordered By: Jessi Kaur on 06-27-2024 WBC (Bld) [#/Vol] 6.9 10*3/uL 4.4-11.0 [facility] XR CHEST 1 VIEWon 06-27-2024 XR CHEST 1 VIEW ORIGINAL EXAMINATION: ONE XRAY VIEW OF THE CHEST 06/27/2024 12:47 pm COMPARISON: None. HISTORY: ORDERING SYSTEM PROVIDED HISTORY: Reason for Exam: sob FINDINGS: Pulmonary vascular cephalization observed. There is veiling of the lower lobe vessels, cardiomegaly and elevation of the left hemidiaphragm. There are small bilateral pleural effusions. Skeletal elements remain intact. IMPRESSION: Mild pulmonary edema and small bilateral pleural effusions. Interpreted by: Chaim Workman DO Preliminary Report By: Chaim Workman DO Electronically signed By Chaim Workman DO Dictated Date: 06/27/2024 1:04:11 PM Prelim Date: 06/27/2024 1:04:58 PM Sign Date: 06/27/2024 1:04:58 PM Ordering Provider: CHANEL EDWARDS [facility] pH (Unsp spec)Ordered By: Oscar Kaur on 06-27-2024 Blood Gas pH 7.39 7.35-7.45 [facility] 12 Lead EKGon 06-26-2024 12 Lead EKG Normal [facility] Bedside Glucoseon 06-26-2024 FINGERSTICK GLU 250 mg/dL High [facility]106 [facility] Comment on above: Result Comment: MARIUM GEMENT OF PATIENT CARE PER NURSING PROTOCOL Performed By: #### L 501.080 ####[facility] [address] [place], [address] FINGERSTICK GLU 169 mg/dL High [address] [place] [address] Comment on above: Result Comment: MARIUM GEMENT OF PATIENT CARE PER NURSING PROTOCOL Performed By: #### L 501.080 ####[facility] [address] [place], [address] FINGERSTICK GLU 218 mg/dL High [address] [place] [address] Comment on above: Result Comment: MARIUM GEMENT OF PATIENT CARE PER NURSING PROTOCOL Performed By: #### L 501.080 ####[facility] [address] [place], [address] CBC W/Diff, Automatedon -2 PLT EST SLT DEC Normal ADEQ [facility] Comment on above: Performed By: #### L 501.2300, L500.4050, L501.5200, L100.0100 ####[facility] [address] [place], [address] Comprehensive Metabolic Prof ilon 06-26-2024 Albumin [Mass/Vol] 2.6 g/dL Low 3.2-5.0 [facility] Comment on above: Performed By: #### L 501.2300, L500.4050, L501.5200, L100.0100 ####[facility] [address] [place], [address] Albumin/Globulin [Mass ratio] 0.6 {ratio} Low 0.9-2.4 [facility] Comment on above: Performed By: #### L 501.2300, L500.4050, L501.5200, L100.0100 ####[facility] [address] [place], [address] ALK P 92 U/L Normal 45-117 [facility] Comment on above: Performed By: #### L 501.2300, L500.4050, L501.5200, L100.0100 ####[facility] [address] [place], [address] ALT [Catalytic activity/Vol] 34 U/L Normal 16-61 [facility] Comment on above: Performed By: #### L 501.2300, L500.4050, L501.5200, L100.0100 ####[facility] [address] [place], [address] AST [Catalytic activity/Vol] 25 U/L Normal 15-37 [facility] Comment on above: Performed By: #### L 501.2300, L500.4050, L501.5200, L100.0100 ####[facility] [address] [place], [address] Bilirubin [Mass/Vol] 0.70 mg/dL Normal 0.20-1.00 [facility] Comment on above: Result Comment: For patients on eltrombopag therapy, use of Dimension Rulo TBIL is not recommended. Performed By: #### L 501.2300, L500.4050, L501.5200, L100.0100 ####[facility] [address] [place], [address] BUN/CRE 21.2 RATIO High 10-20 [facility] Comment on above: Performed By: #### L 501.2300, L500.4050, L501.5200, L100.0100 ####[facility] [address] [place], [address] CA,Total 8.4 mg/dL Low 8.5-10.1 [facility] Comment on above: Performed By: #### L 501.2300, L500.4050, L501.5200, L100.0100 ####[facility] [address] [place], [address] Chloride [Moles/Vol] 110 mmol/L High 98-107 [facility] Comment on above: Performed By: #### L 501.2300, L500.4050, L501.5200, L100.0100 ####[facility] [address] [place], [address] CO2 [Moles/Vol] 24.0 mmol/L Normal 21.0-32.0 [facility] Comment on above: Performed By: #### L 501.2300, L500.4050, L501.5200, L100.0100 ####[facility] [address] [place], [address] Creatinine [Mass/Vol] 0.90 mg/dL Normal 0.70-1.30 [facility] Comment on above: Result Comment: The validity of the calculated GFR GFRAA in patients over70 years has not been determined. Clinical correlation isessential. Performed By: #### L 501.2300, L500.4050, L501.5200, L100.0100 ####[facility] [address] [place], [address] ECRCL 92.98 ml/min Normal [facility] Comment on above: Performed By: #### L 501.2300, L500.4050, L501.5200, L100.0100 ####[facility] [address] [place], [address] EST GFR - AA 106 mL/min Normal >60 [facility] Comment on above: Result Comment: Afri can Belarusian GFR Calc Performed By: #### L 501.2300, L500.4050, L501.5200, L100.0100 ####[facility] [address] [place], [address] GAP 6 Normal 5-15 [facility] Comment on above: Performed By: #### L 501.2300, L500.4050, L501.5200, L100.0100 ####[facility] [address] [place], [address] GFR/1.73 sq M.predicted among non-blacks MDRD (S/P/Bld) [Vol rate/Area] 88 mL/min/{1.73_m2} Normal >60 [facility] Comment on above: Result Comment: Non- GFR Calc Performed By: #### L 501.2300, L500.4050, L501.5200, L100.0100 ####[facility] [address] [place], [address] Globulin (S) [Mass/Vol] 4.2 g/dL Normal 2.2-4.2 [facility] Comment on above: Performed By: #### L 501.2300, L500.4050, L501.5200, L100.0100 ####[facility] [address] [place], [address] Glucose [Mass/Vol] 244 mg/dL High 74-106 [facility] Comment on above: Result Comment: Gluc ose result greater than or equal to 200 mg/dLsuggests DIABETES MELLITUS per A.D.A. criteria. Performed By: #### L 501.2300, L500.4050, L501.5200, L100.0100 ####[facility] [address] [place], [address] Potassium [Moles/Vol] 3.4 mmol/L Low 3.5-5.1 [facility] Comment on above: Performed By: #### L 501.2300, L500.4050, L501.5200, L100.0100 ####[facility] [address] [place], [address] Sodium [Moles/Vol] 140 mmol/L Normal 136-145 [facility] Comment on above: Performed By: #### L 501.2300, L500.4050, L501.5200, L100.0100 ####[facility] [address] [place], [address] T PROT 6.8 g/dL Normal 6.4-8.2 [facility] Comment on above: Performed By: #### L 501.2300, L500.4050, L501.5200, L100.0100 ####[facility] [address] [place], [address] Urea nitrogen [Mass/Vol] 19 mg/dL High 7-18 [facility] Comment on above: Performed By: #### L 501.2300, L500.4050, L501.5200, L100.0100 ####[facility] [address] [place], [address] [facility] at [facility] deOrdered By: Jessi Kaur on 06-26-2024 Bedside Glucose (Misc Panel) 250 mg/dL High 74-106 [facility] Comment on above: MANAGEMENT OF PATIEN T CARE PER NURSING PROTOCOL Glucose [Mass/Vol] 250 mg/dL High 74-106 [facility] High density lipoprotein (HD L) measurementOrdered By: Jessi Kaur on 06-26-2024 Cholesterol in HDL [Mass/Vol] 56 mg/dL >40 [facility] Comment on above: The drugs N-Acetylcy steine and Metamizole may falsely depress this assay. Reference Range HDL <40 mg/dL Low HDL Cholesterol HDL >or= 60 mg/dL High HDL Cholesterol High density lipoprotein (HDL) measurement 56 mg/dL >40 [facility] Lipid Profileon 06-26-2024 Cholesterol [Mass/Vol] 112 mg/dL Normal 200 [facility] Comment on above: Result Comment: <200 mg/dL Desirable 200-240 mg/dL Borderline >240 mg/dL High Risk Performed By: #### L 500.4100 ####[facility] [address] [place], [address] Cholesterol in HDL [Mass/Vol] 56 mg/dL Normal [facility] Comment on above: Result Comment: The drugs N-Acetylcysteine and Metamizole may falselydepress this assay. Reference Range HDL <40 mg/dL Low HDL Cholesterol HDL >or= 60 mg/dL High HDL Cholesterol Performed By: #### L 500.4100 ####[facility] [address] [place], [address] Cholesterol in LDL [Mass/Vol] 46 mg/dL Normal 0-130 [facility] Comment on above: Performed By: #### L 500.4100 ####[facility] [address] [place], [address] Cholesterol in VLDL [Mass/Vol] 10 mg/dL Normal 5-40 [facility] Comment on above: Performed By: #### L 500.4100 ####[facility] [address] [place], [address] Triglyceride [Mass/Vol] 51 mg/dL Normal [facility] Comment on above: Result Comment: The drugs N-Acetylcysteine and Metamizole may falselydepress this assay.Serum Triglycerides Reference Interval Normal <150 mg/dL Borderline high 150 - 199 mg/dL High 200 - 499 mg/dL Very High > or = 500 mg/dL Performed By: #### L 500.4100 ####[facility] [address] [place], [address] Low density lipoprotein (LDL ) cholesterol measurementOrdered By: Jessi Kaur on 06-26-2024 Cholesterol in LDL [Mass/Vol] 46 mg/dL 0-130 [facility] Low density lipoprotein (LDL) cholesterol measurement 46 mg/dL 0-130 [facility] Magnesiumon 06-26-2024 Magnesium [Mass/Vol] 1.9 mg/dL Normal 1.6-2.6 [facility] Comment on above: Performed By: #### L 501.2300, L500.4050, L501.5200, L100.0100 ####[facility] [address] [place], [address] Phosphoruson 06-26-2024 Phosphate [Mass/Vol] 2.4 mg/dL Low 2.5-4.9 [facility] Comment on above: Performed By: #### L 501.2300, L500.4050, L501.5200, L100.0100 ####[facility] [address] [place], [address] Serum or plasma cholesterol measurement (mass/volume)Ordered By: Jessi Kaur on 06-26-2024 Cholesterol [Mass/Vol] 112 mg/dL <200 [facility] Comment on above: <200 mg/dL Desirable 200-240 mg/dL Borderline >240 mg/dL High Risk Serum or plasma vancomycin l evel (mass/volume)Ordered By: Jessi Kaur on 06-26-2024 Vancomycin [Mass/Vol] 15.9 ug/mL High 0.0-15.0 [facility] Triglycerides measurementOrd ered By: Jessi Kaur on 06-26-2024 Triglyceride [Mass/Vol] 51 mg/dL <199 [facility] Comment on above: The drugs N-Acetylcy steine and Metamizole may falsely depress this assay.Serum Triglycerides Reference Interval Normal <150 mg/dL Borderline high 150 - 199 mg/dL High 200 - 499 mg/dL Very High > or = 500 mg/dL Vancomycin [Mass/Vol]Ordered By: Jessi Kaur on 06-26-2024 Random Vancomycin Level 15.9 ug/mL High 0.0-15.0 [facility] Comment on above: VANCOMYCIN STANDARD DRUG THERAPY: CRITICAL VALUE IS > 15.0 mg/L VANCOMYCIN HIGH INTENSITY THERAPY: CRITICAL VALUE IS > 20.0 mg/L PLEASE CONTACT PHARMACY SERVICES (#[id number]) FOR INTERPRETATIONOF RESULTS. THIS RESULT DOES NOT REPRESENT A PEAK OR TROUGHLEVEL FOR THIS DRUG. Vancomycin, Random Levelon 0 06-26-2024 VANCO, RANDOM 15.9 ug/mL High 0.0-15.0 [facility] Comment on above: Result Comment: VANC OMYCIN STANDARD DRUG THERAPY: CRITICAL VALUE IS > 15.0 mg/LVANCOMYCIN HIGH INTENSITY THERAPY: CRITICAL VALUE IS > 20.0 mg/LPLEASE CONTACT PHARMACY SERVICES (#[id number]) FOR INTERPRETATIONOF RESULTS. THIS RESULT DOES NOT REPRESENT A PEAK OR TROUGHLEVEL FOR THIS DRUG. Performed By: #### L 501.8850 ####[facility] [address] [place], [place], [address] Very low density lipoprotein (VLDL) cholesterol measurementOrdered By: Jessi Kaur on 06-26-2024 Very low density lipoprotein (VLDL) cholesterol measurement 10 mg/dL 5-40 [facility] VLDL Cholesterol 10 mg/dL 5-40 [facility] 12 Lead EKGon 06-25-2024 12 Lead EKG Normal [facility] 12 Lead EKG Normal [facility] Bedside Glucoseon 06-25-2024 FINGERSTICK GLU 305 mg/dL High 74-106 [facility] Comment on above: Result Comment: MARIUM JERRYENT OF PATIENT CARE PER NURSING PROTOCOL Performed By: #### L 501.080 ####[facility] [address] [place], [place], [address] FINGERSTICK GLU 194 mg/dL High 74-106 [facility] Comment on above: Result Comment: MARIUM GEMENT OF PATIENT CARE PER NURSING PROTOCOL Performed By: #### L 501.080 ####[facility] [address] [place], [address] FINGERSTICK GLU 189 mg/dL High 74-106 [facility] Comment on above: Result Comment: MARIUM GEMENT OF PATIENT CARE PER NURSING PROTOCOL Performed By: #### L 501.080 ####[facility] [address] [place], [address] CBC W/Diff, Automatedon 06-04 PLT EST ADEQUATE Normal ADEQ [facility] Comment on above: Performed By: #### L 500.4050, L100.0100 ####[facility] [address] [place], [address] PLT TNP Normal 150-450 [facility] Comment on above: Result Comment: Marcelle fritz note: For this sample, a platelet estimate isprovided rather than a platelet count due to plateletclumping. Other parameters associated with this sample arenot affected by platelet clumping. If a more accurateplatelet count is required, a redraw of the patient will benecessary. Performed By: #### L 500.4050, L100.0100 ####[facility] [address] [place], [address] Cardiac Cath Interventionon 06-25-2024 Cardiac Cath Intervention Normal [facility] Comprehensive Metabolic Prof ilon 06-25-2024 Albumin [Mass/Vol] 2.8 g/dL Low 3.2-5.0 [facility] Comment on above: Performed By: #### L 500.4050, L100.0100 ####[facility] [address] [place], [address] Albumin/Globulin [Mass ratio] 0.7 {ratio} Low 0.9-2.4 [facility] Comment on above: Performed By: #### L 500.4050, L100.0100 ####[facility] [address] [place], [address] ALK P 98 U/L Normal 45-117 [facility] Comment on above: Performed By: #### L 500.4050, L100.0100 ####[facility] [address] [place], [address] ALT [Catalytic activity/Vol] 34 U/L Normal 16-61 [facility] Comment on above: Performed By: #### L 500.4050, L100.0100 ####[facility] [address] [place], [address] AST [Catalytic activity/Vol] 33 U/L Normal 15-37 [facility] Comment on above: Performed By: #### L 500.4050, L100.0100 ####[facility] [address] [place], [address] Bilirubin [Mass/Vol] 0.70 mg/dL Normal 0.20-1.00 [facility] Comment on above: Result Comment: For patients on eltrombopag therapy, use of Dimension Rulo TBIL is not recommended. Performed By: #### L 500.4050, L100.0100 ####[facility] [address] [place], [address] BUN/CRE 24.0 RATIO High 10-20 [facility] Comment on above: Performed By: #### L 500.4050, L100.0100 ####[facility] [address] [place], [address] CA,Total 8.7 mg/dL Normal 8.5-10.1 [facility] Comment on above: Performed By: #### L 500.4050, L100.0100 ####[facility] [address] [place], [address] Chloride [Moles/Vol] 109 mmol/L High 98-107 [facility] Comment on above: Performed By: #### L 500.4050, L100.0100 ####[facility] [address] [place], [address] CO2 [Moles/Vol] 26.0 mmol/L Normal 21.0-32.0 [facility] Comment on above: Performed By: #### L 500.4050, L100.0100 ####[facility] [address] [place], [address] Creatinine [Mass/Vol] 0.83 mg/dL Normal 0.70-1.30 [facility] Comment on above: Result Comment: The validity of the calculated GFR GFRAA in patients over70 years has not been determined. Clinical correlation isessential. Performed By: #### L 500.4050, L100.0100 ####[facility] [address] [place], [address] ECRCL 101.08 ml/min Normal [facility] Comment on above: Performed By: #### L 500.4050, L100.0100 ####[facility] [address] [place], [address] EST GFR - AA 115 mL/min Normal >60 [facility] Comment on above: Result Comment: Afri can Belarusian GFR Calc Performed By: #### L 500.4050, L100.0100 ####[facility] [address] [place], [address] GAP 6 Normal 5-15 [facility] Comment on above: Performed By: #### L 500.4050, L100.0100 ####[facility] [address] [place], [address] GFR/1.73 sq M.predicted among non-blacks MDRD (S/P/Bld) [Vol rate/Area] 95 mL/min/{1.73_m2} Normal >60 [facility] Comment on above: Result Comment: Non- GFR Calc Performed By: #### L 500.4050, L100.0100 ####[facility] [address] [place], [address] Globulin (S) [Mass/Vol] 4.0 g/dL Normal 2.2-4.2 [facility] Comment on above: Performed By: #### L 500.4050, L100.0100 ####[facility] [address] [place], [address] Glucose [Mass/Vol] 171 mg/dL High 74-106 [facility] Comment on above: Result Comment: Fast ing Glucose result greater than or equal to 126 mg/dLsuggests DIABETES MELLITUS per A.D.A. criteria. Performed By: #### L 500.4050, L100.0100 ####[facility] [address] [place], [address] Potassium [Moles/Vol] 4.2 mmol/L Normal 3.5-5.1 [facility] Comment on above: Performed By: #### L 500.4050, L100.0100 ####[facility] [address] [place], [address] Sodium [Moles/Vol] 141 mmol/L Normal 136-145 [facility] Comment on above: Performed By: #### L 500.4050, L100.0100 ####[facility] [address] [place], [address] T PROT 6.8 g/dL Normal 6.4-8.2 [facility] Comment on above: Performed By: #### L 500.4050, L100.0100 ####[facility] [address] [place], [address] Urea nitrogen [Mass/Vol] 20 mg/dL High 7-18 [facility] Comment on above: Performed By: #### L 500.4050, L100.0100 ####[facility] [address] [place], [place], [address] Consultation - Cardiologyon 06-25-2024 Consultation - Cardiology Normal [facility] Mean platelet volume determi nationOrdered By: Jessi Kaur on 06-25-2024 Mean Platelet Volume TNP [facility] Comment on above: Test not performed Modified Barium Swallow Stud yon 06-25-2024 Modified Barium Swallow Study Normal [facility] Serum or plasma trough vanco mycin levelOrdered By: Jessi Kaur on 06-25-2024 Vancomycin trough [Mass/Vol] 21.4 ug/mL High 5.0-15.0 [facility] Vancomycin trough [Mass/Vol] Ordered By: Jessi Kaur on 06-25-2024 Vancomycin Level Trough 21.4 ug/mL High 5.0-15.0 [facility] Comment on above: VANCOMYCIN STANDARED DRUG THERAPY TROUGH LEVEL: 5.0 - 15.0 mg/L VANCOMYCIN HIGH INTENSITY THERAPY TROUGH LEVEL: 15.0 - 20.0 mg/L High Intensity therapy recommended for serious lifethreatening infections include:- Alfylyrbcu-Wsaypcdvwjcc-Uqfwuhrqv (Ventilator/Healtcare Associated)-Sepsis PLEASE CONTACT PHARMACY SERVICES (#[id number]) FOR INTERPRETATIONOF RESULTS. Vancomycin, Trough Levelon 0 06-25-2024 VANCO, TROUGH 21.4 ug/mL High 5.0-15.0 [facility] Comment on above: Order Comment: Comme nts: Trough to be drawn 30 mins prior to scheduled [id number] Result Comment: VANC OMYCIN STANDARED DRUG THERAPY TROUGH LEVEL: 5.0 - 15.0 mg/LVANCOMYCIN HIGH INTENSITY THERAPY TROUGH LEVEL: 15.0 - 20.0 mg/LHigh Intensity therapy recommended for serious lifethreatening infections include:- Flbyjfremw-Ozdtpaaevlvc-Usaffjfoz (Ventilator/Healtcare Associated)-SepsisPLEASE CONTACT PHARMACY SERVICES (#[id number]) FOR INTERPRETATIONOF RESULTS. Performed By: #### L 501.8820 ####[facility] [address] [place], [place], [address] 12 Lead EKGon 01-22-2025 12 Lead EKG Normal [facility] 12 Lead EKG Normal [facility] Basic Metabolic Profile (BMP )on 06-24-2024 BUN/CRE 20.8 RATIO High 10-20 [facility] Comment on above: Order Comment: 1Y Performed By: #### L 501.5425, L100.0100, L500.2500 ####[facility] [address] [place], [address] CA,Total 9.3 mg/dL Normal 8.5-10.1 [facility] Comment on above: Order Comment: 1Y Performed By: #### L 501.5425, L100.0100, L500.2500 ####[facility] [address] [place], [address] Chloride [Moles/Vol] 100 mmol/L Normal 98-107 [facility] Comment on above: Order Comment: 1Y Performed By: #### L 501.5425, L100.0100, L500.2500 ####[facility] [address] [place], [address] CO2 [Moles/Vol] 27.0 mmol/L Normal 21.0-32.0 [facility] Comment on above: Order Comment: 1Y Performed By: #### L 501.5425, L100.0100, L500.2500 ####[facility] [address] [place], [address] Creatinine [Mass/Vol] 1.01 mg/dL Normal 0.70-1.30 [facility] Comment on above: Order Comment: 1Y Result Comment: The validity of the calculated GFR GFRAA in patients over70 years has not been determined. Clinical correlation isessential. Performed By: #### L 501.5425, L100.0100, L500.2500 ####[facility] [address] [place], [address] ECRCL 83.13 ml/min Normal [facility] Comment on above: Order Comment: 1Y Performed By: #### L 501.5425, L100.0100, L500.2500 ####[facility] [address] [place], [address] EST GFR - AA 92 mL/min Normal >60 [facility] Comment on above: Order Comment: 1Y Result Comment: Afri can Belarusian GFR Calc Performed By: #### L 501.5425, L100.0100, L500.2500 ####[facility] [address] [place], [address] GAP 9 Normal 5-15 [facility] Comment on above: Order Comment: 1Y Performed By: #### L 501.5425, L100.0100, L500.2500 ####[facility] [address] [place], [address] GFR/1.73 sq M.predicted among non-blacks MDRD (S/P/Bld) [Vol rate/Area] 76 mL/min/{1.73_m2} Normal >60 [facility] Comment on above: Order Comment: 1Y Result Comment: Non- GFR Calc Performed By: #### L 501.5425, L100.0100, L500.2500 ####[facility] [address] [place], [address] Glucose [Mass/Vol] 198 mg/dL High 74-106 [facility] Comment on above: Order Comment: 1Y Result Comment: Fast ing Glucose result greater than or equal to 126 mg/dLsuggests DIABETES MELLITUS per A.D.A. criteria. Performed By: #### L 501.5425, L100.0100, L500.2500 ####[facility] [address] [place], [address] Potassium [Moles/Vol] 3.9 mmol/L Normal 3.5-5.1 [facility] Comment on above: Order Comment: 1Y Result Comment: Slig ht Hemolysis, Result may be falsely increased. Performed By: #### L 501.5425, L100.0100, L500.2500 ####[facility] [address] [place], [address] Sodium [Moles/Vol] 136 mmol/L Normal 136-145 [facility] Comment on above: Order Comment: 1Y Performed By: #### L 501.5425, L100.0100, L500.2500 ####[facility] [address] [place], [address] Urea nitrogen [Mass/Vol] 21 mg/dL High 7-18 [facility] Comment on above: Order Comment: 1Y Performed By: #### L 501.5425, L100.0100, L500.2500 ####[facility] [address] [place], [address] Bedside Glucoseon 06-24-2024 FINGERSTICK GLU 149 mg/dL High 74-106 [facility] [facility] Comment on above: Result Comment: MARIUM GEMENT OF PATIENT CARE PER NURSING PROTOCOL Performed By: #### L 501.080 ####[facility] [place] [address] [place], [address] FINGERSTICK GLU 166 mg/dL High 74-106 [facility] [place] Comment on above: Result Comment: MARIUM GEMENT OF PATIENT CARE PER NURSING PROTOCOL Performed By: #### L 501.080 ####[facility] [place] [address] [place], [address] FINGERSTICK GLU 150 mg/dL High 74-106 [facility] [place] Comment on above: Result Comment: MAIRUM GEMENT OF PATIENT CARE PER NURSING PROTOCOL Performed By: #### L 501.080 ####[facility] [place] [address] [place], [address] FINGERSTICK GLU 157 mg/dL High 74-106 [facility] [place] Comment on above: Result Comment: MARIUM GEMENT OF PATIENT CARE PER NURSING PROTOCOL Performed By: #### L 501.080 ####[facility] [place] [address] [place], [address] Blood cultureOrdered By: Dayana Jama on 06-24-2024 Bacteria identified Cx Nom (Bld) No growth in 5 days. [facility] CBC W/Diff, Automatedon 06-04 PLT EST A Normal ADEQ [facility] [place] Comment on above: Performed By: #### L 501.5425, L100.0100, L500.2500 ####[facility] [place] [address] [place], [address] PLT MORPH CLUMPED Normal [facility] [place] Comment on above: Performed By: #### L 501.5425, L100.0100, L500.2500 ####[facility] [place] [address] [place], [address] Absolute Neut Normal 2.0-7.7 [facility] [place] Comment on above: Result Comment: Canc elled via OM: Duplicate Order Performed By: #### L 100.0100 ####[facility] [place] [address] [place], [address] HCT Normal 40-54 [facility] [place] Comment on above: Result Comment: Canc elled via OM: Duplicate Order Performed By: #### L 100.0100 ####[facility] [address] [place], [address] HGB Normal 13.0-16.5 [facility] [place] Comment on above: Result Comment: Canc elled via OM: Duplicate Order Performed By: #### L 100.0100 ####[facility] [address] [place], [address] MCH Normal 27.0-32.0 [facility] [place] Comment on above: Result Comment: Canc elled via OM: Duplicate Order Performed By: #### L 100.0100 ####[facility] [place] [address] [place], [address] MCHC Normal 32-36 [facility] [place] Comment on above: Result Comment: Canc elled via OM: Duplicate Order Performed By: #### L 100.0100 ####[facility] [place] [address] [place], [address] MCV Normal 80-94 [facility] [place] Comment on above: Result Comment: Canc elled via OM: Duplicate Order Performed By: #### L 100.0100 ####[facility] [place] [address] [place], [address] NEUT% Normal 47-70 [facility] [place] Comment on above: Result Comment: Canc elled via OM: Duplicate Order Performed By: #### L 100.0100 ####[facility] [place] [address] [place], [address] PLT Normal 150-450 [facility] [place] Comment on above: Result Comment: Canc elled via OM: Duplicate Order Performed By: #### L 100.0100 ####[facility] [address] [place], [address] RBC Normal 4.6-6.2 [facility] [place] Comment on above: Result Comment: Canc elled via OM: Duplicate Order Performed By: #### L 100.0100 ####[facility] [address] [place], [address] RDW CV Normal 11.6-14.6 [facility] [place] Comment on above: Result Comment: Canc elled via OM: Duplicate Order Performed By: #### L 100.0100 ####[facility] [address] [place], [address] RDW SD Normal 35.1-43.9 [facility] [place] Comment on above: Result Comment: Canc elled via OM: Duplicate Order Performed By: #### L 100.0100 ####[facility] [address] [place], [address] WBC Normal 4.4-11.0 [facility] [place] Comment on above: Result Comment: Canc elled via OM: Duplicate Order Performed By: #### L 100.0100 ####[facility] [place] [address] [place], [address] Chest 1 View (Portable)on Chest 1 View (Portable) Normal [facility] [place] Echo Complete W/ Contraston 06-24-2024 Echo Complete W/ Contrast Normal [facility] Emergency Department Summary on 06-24-2024 Emergency Department Summary Normal [facility] H AND P Exam - Hospitaliston 06-24-2024 H&P Exam - Hospitalist Normal [facility] Influenza virus A and B and SARS-CoV-2 (COVID-19) and Respiratory syncytial virus RNAOrdered By: Jessi Kaur on 06-24-2024 SARS-CoV-2 (COVID-19) RNA ZOE+probe Ql (Unsp spec) [facility] L. pneumophila Ag Ql (U)Orde red By: Jessi Kaur on 06-24-2024 Legionella Antigen [facility] L501.4020on 06-24-2024 TROPONIN-I HS 417 pg/mL Invalid Interpretation Code 3.0-78.0 [facility] [place] Comment on above: Order Comment: Comme nts: SPECIMEN #3'TROP' Serial specimen #1, #2 or #3: 3Comments: add on please3 Result Comment: Crit ical Result(s) Called at: 17:18:34 06/24/2024 by: SERENITY. Results read back by Jacinda Gillis Please Note: New Test Units and Gender Specific Reference Ranges. For more information see Policy Stat Procedure Rulo High Sensitivity Troponin (TNIH) and attachments. Performed By: #### L 501.4020 ####[facility] [place] [address] [place], [place], [address] TROPONIN-I HS 260 pg/mL Invalid Interpretation Code 3.0-78.0 [facility] [place] Comment on above: Order Comment: Comme nts: SPECIMEN #2'TROP' Serial specimen #1, #2 or #3: 2 Result Comment: Crit ical Result(s) Called at: 13:28:45 06/24/2024 by:DELVIS CASANOVA TO [facility]. Results read back by same. Please Note: New Test Units and Gender Specific Reference Ranges. For more information see Policy Stat Procedure Rulo High Sensitivity Troponin (TNIH) and attachments. Performed By: #### L 501.5200, L501.4020 ####[facility] [place] [address] [place], [address] L501.5425on 06-24-2024 TROPONIN-I HS 109 pg/mL High 3.0-78.0 [facility] [place] Comment on above: Order Comment: 1Y Result Comment: Plea se Note: New Test Units and Gender Specific Reference Ranges. For more information see Policy Stat Procedure Rulo High Sensitivity Troponin (TNIH) and attachments. Performed By: #### L 501.5425, L100.0100, L500.2500 ####[facility] [place] [address] [place], [address] Lactic Acidon 06-24-2024 Lactate [Moles/Vol] 1.4 mmol/L Normal 0.4-1.9 [facility] Comment on above: Performed By: #### L 503.6005 ####[facility] [address] [place], [address] Lactate [Moles/Vol] 2.4 mmol/L Invalid Interpretation Code 0.4-1.9 [facility] [place] Comment on above: Order Comment: Comme nts: if result >2, system reflex orders 2nd test @ 4hrsY Result Comment: Crit ical Result(s) Called at: 13:27:25 06/24/2024 by:DELVIS CASANOVA TO [facility]. Results read back by same. Performed By: #### L 503.6005 ####[facility] [address] [place], [address] Lactate [Moles/Vol] 1.9 mmol/L Normal 0.4-1.9 [facility] Comment on above: Order Comment: Y Performed By: #### M 200.1000, L503.6005 ####[facility] [place] [address] [place], [address] Lactic acid measurementOrder ed By: Jessi Kaur on 06-24-2024 Lactate [Moles/Vol] 1.4 mmol/L 0.4-2.0 [facility] Legionella Antigen Urineon 0 06-24-2024 LEGU Normal [facility] [place] Comment on above: Performed By: #### M 300.4500, M300.4600 ####[facility] [place] [address] [place], [address] M100.678on 06-24-2024 M100.678 Pending SARS-CoV-2 (COVID 19) Negative INFLUENZA A Negative INFLUENZA B Negative RSV PCR Negative [facility] Comment on above: Performed By: #### M 100.678 ####[facility] [address] [place], [address] Magnesiumon 06-24-2024 Magnesium [Mass/Vol] 1.9 mg/dL Normal 1.6-2.6 [facility] Comment on above: Order Comment: Comme nts: SPECIMEN #2'TROP' Serial specimen #1, #2 or #3: 22 Performed By: #### L 501.5200, L501.4020 ####[facility] [place] [address] [place], [address] Strep pneumoniae Antig(UR,CS F)on 06-24-2024 STPAG [facility] Comment on above: Performed By: #### M 300.4500, M300.4600 ####[facility] [address] [place], [address] Streptococcus pneumoniae ant igen assayOrdered By: Jessi Kaur on 06-24-2024 Streptococcus pneumoniae Antigen (M [facility] Troponin IOrdered By: Jessi blake on 06-24-2024 Troponin I 417 pg/mL High 3.0-78.0 [facility] [place] Troponin I High Sensitivity 417 pg/mL High 3.0-78.0 [facility] [place] Comment on above: Critical Result(s) C alled at: 17:18:34 06/24/2024 by: ANN BILLS. Results read back by Jacinda Gillis Please Note: New Test Units and Gender Specific Reference Ranges. For more information see Policy Stat Procedure Rulo High Sensitivity Troponin (TNIH) and attachments. Urine Legionella pneumophila antigen detectionOrdered By: Jessi Kaur on 06-24-2024 L. pneumophila Ag Ql (U) [facility] Emergency Department Summary on 05-25-2024 Emergency Department Summary Normal [facility] Spine Lumbar without Contras ton 05-25-2024 Spine Lumbar without Contrast Normal [facility] [place] BNP,B-Type NATRIURETIC PEPTI Vale 03-22-2024 Natriuretic peptide B (Bld) [Mass/Vol] 118.9 pg/mL High 0-100 [facility] [place] Comment on above: Performed By: #### L 501.5425, L503.6620, L500.2500, L100.0100 ####[facility] [place] [address] [place], [address] Basic Metabolic Profile (BMP )on 03-22-2024 BUN/CRE 25.4 RATIO High 03-22 [facility] [place] Comment on above: Order Comment: 1Y Performed By: #### L 501.5425, L503.6620, L500.2500, L100.0100 ####[facility] [place] [address] [place], [address] CA,Total 9.2 mg/dL Normal 8.5-10.1 [facility] [place] Comment on above: Order Comment: 1Y Performed By: #### L 501.5425, L503.6620, L500.2500, L100.0100 ####[facility] [place] [address] [place], [address] Chloride [Moles/Vol] 107 mmol/L Normal 98-107 [facility] Comment on above: Order Comment: 1Y Performed By: #### L 501.5425, L503.6620, L500.2500, L100.0100 ####[facility] [place] [address] [place], [address] CO2 [Moles/Vol] 30.0 mmol/L Normal 21.0-32.0 [facility] [place] Comment on above: Order Comment: 1Y Performed By: #### L 501.5425, L503.6620, L500.2500, L100.0100 ####[facility] [place] [address] [place], [address] Creatinine [Mass/Vol] 0.71 mg/dL Normal 0.70-1.30 [facility] Comment on above: Order Comment: 1Y Result Comment: The validity of the calculated GFR GFRAA in patients over70 years has not been determined. Clinical correlation isessential. Performed By: #### L 501.5425, L503.6620, L500.2500, L100.0100 ####[facility] [address] [place], [address] ECRCL 106.35 ml/min Normal [facility] [place] Comment on above: Order Comment: 1Y Performed By: #### L 501.5425, L503.6620, L500.2500, L100.0100 ####[facility] [address] [place], [address] EST GFR - AA 139 mL/min Normal >60 [facility] [place] Comment on above: Order Comment: 1Y Result Comment: Afri can Bel[place]ian GFR Calc Performed By: #### L 501.5425, L503.6620, L500.2500, L100.0100 ####[facility] [place] [address] [place], [address] GAP 4 Low 5-15 [facility] [place] Comment on above: Order Comment: 1Y Performed By: #### L 501.5425, L503.6620, L500.2500, L100.0100 ####[facility] [place] [address] [place], [address] GFR/1.73 sq M.predicted among non-blacks MDRD (S/P/Bld) [Vol rate/Area] 115 mL/min/{1.73_m2} Normal >60 [facility] [place] Comment on above: Order Comment: 1Y Result Comment: Non- GFR Calc Performed By: #### L 501.5425, L503.6620, L500.2500, L100.0100 ####[facility] [address] [place], [address] Glucose [Mass/Vol] 160 mg/dL High 74-106 [facility] Comment on above: Order Comment: 1Y Result Comment: Fast ing Glucose result greater than or equal to 126 mg/dLsuggests DIABETES MELLITUS per A.D.A. criteria. Performed By: #### L 501.5425, L503.6620, L500.2500, L100.0100 ####[facility] [address] [place], [address] Potassium [Moles/Vol] 3.5 mmol/L Normal 3.5-5.1 [facility] Comment on above: Order Comment: 1Y Performed By: #### L 501.5425, L503.6620, L500.2500, L100.0100 ####[facility] [address] [place], [address] Sodium [Moles/Vol] 141 mmol/L Normal 136-145 [facility] Comment on above: Order Comment: 1Y Performed By: #### L 501.5425, L503.6620, L500.2500, L100.0100 ####[facility] [place] [address] [place], [address] Urea nitrogen [Mass/Vol] 18 mg/dL Normal 7-18 [facility] [place] Comment on above: Order Comment: 1Y Performed By: #### L 501.5425, L503.6620, L500.2500, L100.0100 ####[facility] [address] [place], [address] CBC W/Diff, Automatedon 03-04 PLT EST ADEQUATE Normal ADEQ [facility] [place] Comment on above: Performed By: #### L 501.5425, L503.6620, L500.2500, L100.0100 ####[facility] [address] [place], [address] SMEAR COMMENT SCANNED Normal [facility] [place] Comment on above: Performed By: #### L 501.5425, L503.6620, L500.2500, L100.0100 ####[facility] [address] [place], [address] Chest PA and Lateralon 03-22 Chest PA and Lateral Normal [facility] Emergency Department Summary on 03-22-2024 Emergency Department Summary Normal [facility] L501.4020on 03-22-2024 TROPONIN-I HS 74 pg/mL Normal 3.0-78.0 [facility] [place] Comment on above: Result Comment: Plea se Note: New Test Units and Gender Specific Reference Ranges. For more information see Policy Stat Procedure Rulo High Sensitivity Troponin (TNIH) and attachments. Performed By: #### L 501.4020 ####[facility] [address] [place], [address] L501.5425on 03-22-2024 TROPONIN-I HS 81 pg/mL High 3.0-78.0 [facility] [place] Comment on above: Order Comment: 1Y Result Comment: Plea se Note: New Test Units and Gender Specific Reference Ranges. For more information see Policy Stat Procedure Rulo High Sensitivity Troponin (TNIH) and attachments. Performed By: #### L 501.5425, L503.6620, L500.2500, L100.0100 ####[facility] [address] [place], [address] M100.678on 03-22-2024 M100.678 Pending SARS-CoV-2 (COVID 19) Negative INFLUENZA A Negative INFLUENZA B Negative RSV PCR Negative Normal [facility] [place] Comment on above: Performed By: #### M 100.678 ####[facility] [address] [place], [address] Cardiology Visit Reporton Cardiology Visit Report Normal [facility] CBC W/Diff, Automatedon 12-02 PLT TNP Normal 150-450 [facility] Comment on above: Order Comment: Order Date: 12/23/23Order Info: 0184-1 - CBCD Result Comment: Marcelle fritz note: For this sample, a platelet estimate isprovided rather than a platelet count due to plateletclumping. Other parameters associated with this sample arenot affected by platelet clumping. If a more accurateplatelet count is required, a redraw of the patient will benecessary. Performed By: #### L 506.1000, L500.4050, L100.0100, L501.5200 ####[facility] [address] [place], [address] Absolute Lymph 2.11 X10 3/uL Normal 0.83-4.51 [facility] [place] Comment on above: Order Comment: Order Date: 12/23/23Order Info: 0184-1 - CBCD Performed By: #### L 506.1000, L500.4050, L100.0100, L501.5200 ####[facility] [address] [place], [address] Absolute Neut 3.6 X10 3/uL Normal 2.0-7.7 [facility] [place] Comment on above: Order Comment: Order Date: 12/23/23Order Info: 0184-1 - CBCD Performed By: #### L 506.1000, L500.4050, L100.0100, L501.5200 ####[facility] [address] [place], [address] Basophils/100 WBC (Bld) 0.5 % Normal 0-1 [facility] [place] Comment on above: Order Comment: Order Date: 12/23/23Order Info: 0184-1 - CBCD Performed By: #### L 506.1000, L500.4050, L100.0100, L501.5200 ####[facility] [address] [place], [address] Eosinophils/100 WBC (Bld) 1.7 % Normal 0-5 [facility] [place] Comment on above: Order Comment: Order Date: 12/23/23Order Info: 018-1 - CBCD Performed By: #### L 506.1000, L500.4050, L100.0100, L501.5200 ####[facility] [place] [address] [place], [address] Erythrocyte distribution width (RBC) [Ratio] 13.7 % Normal 11.6-14.6 [facility] [place] Comment on above: Order Comment: Order Date: 12/23/23Order Info: 018- - CBCD Performed By: #### L 506.1000, L500.4050, L100.0100, L501.5200 ####[facility] [address] [place], [address] Hematocrit (Bld) [Volume fraction] 39.0 % Low 40-54 [facility] [place] Comment on above: Order Comment: Order Date: 12/23/23Order Info: 0184-1 - CBCD Performed By: #### L 506.1000, L500.4050, L100.0100, L501.5200 ####[facility] [address] [place], [address] Hemoglobin (Bld) [Mass/Vol] 12.4 g/dL Low 13.0-16.5 [facility] [place] Comment on above: Order Comment: Order Date: 12/23/23Order Info: 0184-1 - CBCD Performed By: #### L 506.1000, L500.4050, L100.0100, L501.5200 ####[facility] [address] [place], [address] IG% 0.600 Normal 0.0-0.9 [facility] Comment on above: Order Comment: Order Date: 12/23/23Order Info: 018- - CBCD Result Comment: IG% - Immature Granulocytes (promyelocytes, myelocytes andmetamyelocytes) > 1% indicates that a LEFT SHIFT is Present. Performed By: #### L 506.1000, L500.4050, L100.0100, L501.5200 ####[facility] [address] [place], [address] Lymphocytes/100 WBC (Bld) 32.2 % Normal 19-41 [facility] [place] Comment on above: Order Comment: Order Date: 12/23/23Order Info: 018- - CBCD Performed By: #### L 506.1000, L500.4050, L100.0100, L501.5200 ####[facility] [address] [place], [address] MCH (RBC) [Entitic mass] 30.8 pg Normal 27.0-32.0 [facility] Comment on above: Order Comment: Order Date: 12/23/23Order Info: 018- - CBCD Performed By: #### L 506.1000, L500.4050, L100.0100, L501.5200 ####[facility] [address] [place], [address] MCHC (RBC) [Mass/Vol] 31.8 g/dL Low 32-36 [facility] Comment on above: Order Comment: Order Date: 12/23/23Order Info: 018- - CBCD Performed By: #### L 506.1000, L500.4050, L100.0100, L501.5200 ####[facility] [address] [place], [address] MCV (RBC) [Entitic vol] 96.8 fL High 80-94 [facility] Comment on above: Order Comment: Order Date: 12/23/23Order Info: 0184-1 - CBCD Performed By: #### L 506.1000, L500.4050, L100.0100, L501.5200 ####[facility] [address] [place], [address] Monocytes/100 WBC (Bld) 10.2 % High 0-10 [facility] Comment on above: Order Comment: Order Date: 12/23/23Order Info: [id number] - CBCD Performed By: #### L 506.1000, L500.4050, L100.0100, L501.5200 ####[facility] [address] [place], [address] Neutrophils/100 WBC (Bld) 54.8 % Normal 47-70 [facility] Comment on above: Order Comment: Order Date: 12/23/23Order Info: [id number] - [id number] Performed By: #### L 506.1000, L500.4050, L100.0100, L501.5200 ####[facility] [address] [place], [address] Nucleated RBC (Bld) [#/Vol] 0 10*3/uL Normal 0-5 [facility] Comment on above: Order Comment: Order Date: 12/23/23Order Info: [id number] - CBCD Performed By: #### L 506.1000, L500.4050, L100.0100, L501.5200 ####[facility] [address] [place], [address] Platelet mean volume (Bld) [Entitic vol] 14.4 fL High 6.2-12.0 [facility] Comment on above: Order Comment: Order Date: 12/23/23Order Info: [id number] - CBCD Performed By: #### L 506.1000, L500.4050, L100.0100, L501.5200 ####[facility] [address] [place], [address] RBC (Bld) [#/Vol] 4.03 10*6/uL Low 4.6-6.2 [facility] Comment on above: Order Comment: Order Date: 12/23/23Order Info: [id number] - CBCD Performed By: #### L 506.1000, L500.4050, L100.0100, L501.5200 ####[facility] [address] [place], [address] RDW SD 49.1 fl High 35.1-43.9 [facility] Comment on above: Order Comment: Order Date: 12/23/23Order Info: [id number] - CBCD Performed By: #### L 506.1000, L500.4050, L100.0100, L501.5200 ####[facility] [address] [place], [address] WBC (Bld) [#/Vol] 6.6 10*3/uL Normal 4.4-11.0 [facility] Comment on above: Order Comment: Order Date: 12/23/23Order Info: [id number] - CBCD Performed By: #### L 506.1000, L500.4050, L100.0100, L501.5200 ####[facility] [address] [place], [address] Comprehensive Metabolic Prof [facility] 12-23-2023 Albumin [Mass/Vol] 3.2 g/dL Normal 3.2-5.0 [facility] Comment on above: Order Comment: Order Date: 12/23/23Order Info: [id number] - CMPOrder Info: [id number] - MG Performed By: #### L 506.1000, L500.4050, L100.0100, L501.5200 ####[facility] [address] [place], [address] Albumin/Globulin [Mass ratio] 0.8 {ratio} Low 0.9-2.4 [facility] Comment on above: Order Comment: Order Date: 12/23/23Order Info: [id number] - CMPOrder Info: [id number] - MG Performed By: #### L 506.1000, L500.4050, L100.0100, L501.5200 ####[facility] [address] [place], [address] ALK P 78 U/L Normal 45-117 [facility] Comment on above: Order Comment: Order Date: 12/23/23Order Info: [id number] - CMPOrder Info: [id number] - MG Performed By: #### L 506.1000, L500.4050, L100.0100, L501.5200 ####[facility] [address] [place], [address] ALT [Catalytic activity/Vol] 25 U/L Normal 16-61 [facility] Comment on above: Order Comment: Order Date: 12/23/23Order Info: [id number] - CMPOrder Info: [id number] - MG Performed By: #### L 506.1000, L500.4050, L100.0100, L501.5200 ####[facility] [address] [place], [address] AST [Catalytic activity/Vol] 15 U/L Normal 15-37 [facility] Comment on above: Order Comment: Order Date: 12/23/23Order Info: [id number] - CMPOrder Info: [id number] - MG Performed By: #### L 506.1000, L500.4050, L100.0100, L501.5200 ####[facility] [address] [place], [address] Bilirubin [Mass/Vol] 0.60 mg/dL Normal 0.20-1.00 [facility] Comment on above: Order Comment: Order Date: 12/23/23Order Info: [id number] - CMPOrder Info: [id number] - MG Result Comment: For patients on eltrombopag therapy, use of Dimension Rulo TBIL is not recommended. Performed By: #### L 506.1000, L500.4050, L100.0100, L501.5200 ####[facility] [address] [place], [address] BUN/CRE 23.0 RATIO High 10-20 [facility] Comment on above: Order Comment: Order Date: 12/23/23Order Info: [id number] - CMPOrder Info: [id number] - MG Performed By: #### L 506.1000, L500.4050, L100.0100, L501.5200 ####[facility] [address] [place], [address] CA,Total 9.3 mg/dL Normal 8.5-10.1 [facility] Comment on above: Order Comment: Order Date: 12/23/23Order Info: [id number] - CMPOrder Info: [id number] - MG Performed By: #### L 506.1000, L500.4050, L100.0100, L501.5200 ####[facility] [address] [place], [address] Chloride [Moles/Vol] 105 mmol/L Normal 98-107 [facility] Comment on above: Order Comment: Order Date: 12/23/23Order Info: [id number] - CMPOrder Info: [id number] - MG Performed By: #### L 506.1000, L500.4050, L100.0100, L501.5200 ####[facility] [address] [place], [address] CO2 [Moles/Vol] 29.0 mmol/L Normal 21.0-32.0 [facility] Comment on above: Order Comment: Order Date: 12/23/23Order Info: [id number] - CMPOrder Info: [id number] - MG Performed By: #### L 506.1000, L500.4050, L100.0100, L501.5200 ####[facility] [address] [place], [address] Creatinine [Mass/Vol] 0.91 mg/dL Normal 0.70-1.30 [facility] Comment on above: Order Comment: Order Date: 12/23/23Order Info: [id number] - CMPOrder Info: [id number] - MG Result Comment: The validity of the calculated GFR GFRAA in patients over70 years has not been determined. Clinical correlation isessential. Performed By: #### L 506.1000, L500.4050, L100.0100, L501.5200 ####[facility] [address] [place], [address] EST GFR - AA 104 mL/min Normal >60 [facility] Comment on above: Order Comment: Order Date: 12/23/23Order Info: [id number] - CMPOrder Info: [id number] - MG Result Comment: Afri can Bel[place]ian GFR Calc Performed By: #### L 506.1000, L500.4050, L100.0100, L501.5200 ####[facility] [address] [place], [address] GAP 4 Low 5-15 [facility] Comment on above: Order Comment: Order Date: 12/23/23Order Info: [id number] - CMPOrder Info: [id number] - MG Performed By: #### L 506.1000, L500.4050, L100.0100, L501.5200 ####[facility] [address] [place], [address] GFR/1.73 sq M.predicted among non-blacks MDRD (S/P/Bld) [Vol rate/Area] 86 mL/min/{1.73_m2} Normal >60 [facility] Comment on above: Order Comment: Order Date: 12/23/23Order Info: [id number] - CMPOrder Info: [id number] - MG Result Comment: Non- GFR Calc Performed By: #### L 506.1000, L500.4050, L100.0100, L501.5200 ####[facility] [address] [place], [address] Globulin (S) [Mass/Vol] 4.1 g/dL Normal 2.2-4.2 [facility] Comment on above: Order Comment: Order Date: 12/23/23Order Info: [id number] - CMPOrder Info: [id number] - MG Performed By: #### L 506.1000, L500.4050, L100.0100, L501.5200 ####[facility] [address] [place], [address] Glucose [Mass/Vol] 232 mg/dL High 74-106 [facility] Comment on above: Order Comment: Order Date: 12/23/23Order Info: [id number] - CMPOrder Info: [id number] - MG Result Comment: Gluc ose result greater than or equal to 200 mg/dLsuggests DIABETES MELLITUS per A.D.A. criteria. Performed By: #### L 506.1000, L500.4050, L100.0100, L501.5200 ####[facility] [address] [place], [address] Potassium [Moles/Vol] 4.3 mmol/L Normal 3.5-5.1 [facility] Comment on above: Order Comment: Order Date: 12/23/23Order Info: [id number] - CMPOrder Info: [id number] - MG Performed By: #### L 506.1000, L500.4050, L100.0100, L501.5200 ####[facility] [address] [place], [address] Sodium [Moles/Vol] 138 mmol/L Normal 136-145 [facility] Comment on above: Order Comment: Order Date: 12/23/23Order Info: [id number] - CMPOrder Info: [id number] - MG Performed By: #### L 506.1000, L500.4050, L100.0100, L501.5200 ####[facility] [address] [place], [address] T PROT 7.3 g/dL Normal 6.4-8.2 [facility] Comment on above: Order Comment: Order Date: 12/23/23Order Info: [id number] - CMPOrder Info: [id number] - MG Performed By: #### L 506.1000, L500.4050, L100.0100, L501.5200 ####[facility] [address] [place], [address] Urea nitrogen [Mass/Vol] 21 mg/dL High 7-18 [facility] Comment on above: Order Comment: Order Date: 12/23/23Order Info: [id number] - CMPOrder Info: [id number] - MG Performed By: #### L 506.1000, L500.4050, L100.0100, L501.5200 ####[facility] [address] [place], [address] Magnesiumon 12-23-2023 Magnesium [Mass/Vol] 2.1 mg/dL Normal 1.6-2.6 [facility] Comment on above: Order Comment: Order Date: 12/23/23Order Info: [id number] - CMPOrder Info: [id number] - MG Performed By: #### L 506.1000, L500.4050, L100.0100, L501.5200 ####[facility] [address] [place], [address] Vitamin D,25 Hydroxyon 12-22 Vitamin D 25-OH 36.4 ng/mL Normal [facility] Comment on above: Order Comment: Order Date: 12/23/23Order Info: [id number] - [id number] Result Comment: Tanja min D 25(OH) Status Range Deficiency <20 ng/mL (50nmol/L) Insufficiency 20 - 30 ng/mL (50 - 75 nmol/L) Sufficiency 30 - 100 ng/mL (75 - 250 nmol/L) Toxicity >100 ng/mL (>250 nmol/L) Performed By: #### L 506.1000, L500.4050, L100.0100, L501.5200 ####[facility] [address] [place], [address] No Panel InformationOrdered By: Jessi Olguin on 05-13-2023 Urine Microalbumin/Creatinin e Ratio 6.5 mg/g CRE <30 [facility] Thin prep Papanicolaou smear with manual screeningOrdered By: Jessi Olguin on 05-13-2023 Thin prep Papanicolaou smear with manual screening 9.3 mg/L NO RANGE EST. [facility] Urine creatinine measurement (mass/volume)Ordered By: Jessi Olguin on 05-13-2023 Creatinine (U) [Mass/Vol] 143.00 mg/dL NO RANGE EST. [facility] Absolute lymphocyte countOrd ered By: Jessi Olguin on 05-09-2023 Lymphocytes Auto (Unsp spec) [#/Vol] 2.12 10*3/uL 0.83-4.51 [facility] Basophil percentageOrdered B y: Jessi Olguin on 05-09-2023 Basophils/100 WBC (Bld) 0.6 % 0-1 [facility] Bilirubin [Mass/Vol] 0.70 mg/dL 0.20-1.00 [facility] Comment on above: For patients on eltr ombopag therapy, use of Dimension Rulo TBIL is not recommended. Chloride [Moles/Vol] 107 mmol/L 98-107 [facility] Eosinophils/100 WBC (Bld) 2.0 % 0-5 [facility] Glucose [Mass/Vol] 119 mg/dL 74-106 [facility] Comment on above: Fasting Glucose resu lt from 100 to 125 mg/dL suggests IMPAIRED HOMEOSTASIS per A.D.A. criteria. Neutrophils (Bld) [#/Vol] 3.6 10*3/uL 2.0-7.7 [facility] Neutrophils/100 WBC (Bld) 55.0 % 47-70 [facility] Potassium [Moles/Vol] 4.1 mmol/L 3.5-5.1 [facility] Protein [Mass/Vol] 7.3 g/dL 6.4-8.2 [facility] Sodium [Moles/Vol] 138 mmol/L 136-145 [facility] WBC (Bld) [#/Vol] 6.6 10*3/uL 4.4-11.0 [facility] Blood erythrocytes count (nu mber/volume)Ordered By: Jessi Olguin on 05-09-2023 RBC (Bld) [#/Vol] 4.08 10*6/uL 4.6-6.2 [facility] Blood hemoglobin measurement (mass/volume)Ordered By: Jessi Olguin on 05-09-2023 Hemoglobin (Bld) [Mass/Vol] 12.5 g/dL 13.0-16.5 [facility] Blood lymphocytes/100 leukoc ytesOrdered By: Jessi Olguin on 05-09-2023 Lymphocytes/100 WBC (Bld) 32.1 % 19-41 [facility] Blood manual differential co mment interpretation (narrative result)Ordered By: Jessi Olguin on 05-09-2023 Manual differential comment Royer (Bld) [Interp] SCANNED [facility] Blood monocytes/100 leukocyt esOrdered By: Jessi Olguin on 05-09-2023 Monocytes/100 WBC (Bld) 9.7 % 0-10 [facility] Blood platelet adequacy dete ction by light microscopyOrdered By: Jessi Olguin on 05-09-2023 Platelets LM Ql (Bld) ADEQUATE ADEQ [facility] Determination of erythrocyte mean corpuscular volume (MCV)Ordered By: Jessi Olguin on 05-09-2023 MCV (RBC) [Entitic vol] 95.6 fL 80-94 [facility] Hematocrit Auto (Bld) [Volum e fraction]Ordered By: Jessi Olguin on 05-09-2023 Hematocrit (Bld) [Volume fraction] 39.0 % 40-54 [facility] Laboratory - Chemistry and C hemistry - challengeOrdered By: Jessi Olguin on 05-09-2023 ALP [Catalytic activity/Vol] 74 U/L 45-117 [facility] ALT [Catalytic activity/Vol] 19 U/L 16-61 [facility] CO2 [Moles/Vol] 30.0 mmol/L 21.0-32.0 [facility] Globulin (S) [Mass/Vol] 3.9 g/dL 2.2-4.2 [facility] Urea nitrogen/Creatinine [Mass ratio] 20.8 mg/mg 10-20 [facility] Laboratory - Hematology and Cell countsOrdered By: Jessi Olguin on 05-09-2023 Erythrocyte distribution width (RBC) [Entitic vol] 49.8 fL 35.1-43.9 [facility] Erythrocyte distribution width (RBC) [Ratio] 14.2 % 11.6-14.6 [facility] Immature granulocytes/100 WBC (Bld) 0.600 % 0.0-0.9 [facility] Comment on above: IG% - Immature Granu locytes (promyelocytes, myelocytes and metamyelocytes) > 1% indicates that a LEFT SHIFT is Present. MCH (RBC) [Entitic mass] 30.6 pg 27.0-32.0 [facility] Nucleated RBC/100 WBC (Bld) [Ratio] 0 % 0-5 [facility] MCHC Auto (RBC) [Mass/Vol]Or dered By: Jessi Olguin on 05-09-2023 MCHC (RBC) [Mass/Vol] 32.1 g/dL 32-36 [facility] No Panel InformationOrdered By: Jessi Olguin on 05-09-2023 Estimated GFR (MDRD) Amer 127 mL/min >60 [facility] Comment on above: GFR Calc Estimated GFR (MDRD) Non-Af Amer 105 mL/min >60 [facility] Comment on above: Non- GFR Calc Platelets bldOrdered By: Ana Luisa Olguin on 05-09-2023 Platelets (Bld) [#/Vol] See comment 150-450 [facility] Comment on above: Please note: For thi s sample, a platelet estimate is provided rather than a platelet count due to platelet clumping. Other parameters associated with this sample are not affected by platelet clumping. If a more accurate platelet count is required, a redraw of the patient will be necessary. Serum or plasma albumin shweta urement (mass/volume)Ordered By: Jessi Olguin on 05-09-2023 Albumin [Mass/Vol] 3.4 g/dL 3.2-5.0 [facility] Serum or plasma albumin/glob ulin mass ratioOrdered By: Jessi Olguin on 05-09-2023 Albumin/Globulin [Mass ratio] 0.9 {ratio} 0.9-2.4 [facility] Serum or plasma calcium shweta urement (mass/volume)Ordered By: Jessi Olguin on 05-09-2023 Calcium [Mass/Vol] 9.0 mg/dL 8.5-10.1 [facility] Serum or plasma creatinine m easurement (mass/volume)Ordered By: Jessi Olguin on 05-09-2023 Creatinine [Mass/Vol] 0.77 mg/dL 0.70-1.30 [facility] Comment on above: The validity of the calculated GFR & GFRAA in patients over 70 years has not been determined. Clinical correlation is essential. Serum or plasma urea nitroge n measurement (mass/volume)Ordered By: Jessi Olguin on 05-09-2023 Urea nitrogen [Mass/Vol] 16 mg/dL 7-18 [facility] Thin prep Papanicolaou smear with manual screeningOrdered By: Jessi Olguin on 05-09-2023 Thin prep Papanicolaou smear with manual screening 14 U/L 15-37 [facility] Thin prep Papanicolaou smear with manual screening 1 5-15 [facility] Whole blood hemoglobin A1c/t otal hemoglobin ratio (mass fraction)Ordered By: Jessi Olguin on 05-09-2023 HbA1c (Bld) [Mass fraction] 6.5 % 3.8-5.6 [facility] Comment on above: Normal < 5.7 % Predi abetic 5.7 - 6.4 % Diabetic >or= 6.5 % Please note range changes. Absolute lymphocyte countOrd ered By: Dr. Olguin on 07-13-2022 Lymphocytes Auto (Unsp spec) [#/Vol] 2.25 10*3/uL 0.83-4.51 [facility] Basophil percentageOrdered B y: Dr. Olguin on 07-13-2022 Basophils/100 WBC (Bld) 0.3 % 0-1 [facility] Bilirubin [Mass/Vol] 0.90 mg/dL 0.20-1.00 [facility] Comment on above: For patients on eltr ombopag therapy, use of Dimension Rulo TBIL is not recommended. Chloride [Moles/Vol] 104 mmol/L 98-107 [facility] Eosinophils/100 WBC (Bld) 1.8 % 0-5 [facility] Glucose [Mass/Vol] 170 mg/dL 74-106 [facility] Comment on above: Fasting Glucose resu lt greater than or equal to 126 mg/dL suggests DIABETES MELLITUS per A.D.A. criteria. Neutrophils (Bld) [#/Vol] 4.1 10*3/uL 2.0-7.7 [facility] Neutrophils/100 WBC (Bld) 58.2 % 47-70 [facility] Potassium [Moles/Vol] 4.0 mmol/L 3.5-5.1 [facility] Protein [Mass/Vol] 7.1 g/dL 6.4-8.2 [facility] Sodium [Moles/Vol] 140 mmol/L 136-145 [facility] WBC (Bld) [#/Vol] 7.1 10*3/uL 4.4-11.0 [facility] Blood erythrocytes count (nu mber/volume)Ordered By: Dr. Olguin on 07-13-2022 RBC (Bld) [#/Vol] 4.11 10*6/uL 4.6-6.2 [facility] Blood hemoglobin measurement (mass/volume)Ordered By: Dr. Olguin on 07-13-2022 Hemoglobin (Bld) [Mass/Vol] 12.8 g/dL 13.0-16.5 [facility] Blood lymphocytes/100 leukoc ytesOrdered By: Dr. Olguin on 07-13-2022 Lymphocytes/100 WBC (Bld) 31.6 % 19-41 [facility] Blood monocytes/100 leukocyt esOrdered By: Dr. Olguin on 07-13-2022 Monocytes/100 WBC (Bld) 7.7 % 0-10 [facility] Blood platelet adequacy dete ction by light microscopyOrdered By: Dr. Olguin on 07-13-2022 Platelets LM Ql (Bld) ADEQUATE ADEQ [facility] Blood platelet mean volumeOr dered By: Dr. Olguin on 07-13-2022 Platelet mean volume (Bld) [Entitic vol] 13.8 fL 6.2-12.0 [facility] Determination of erythrocyte mean corpuscular volume (MCV)Ordered By: Dr. Olguin on 07-13-2022 MCV (RBC) [Entitic vol] 95.1 fL 80-94 [facility] Hematocrit Auto (Bld) [Volum e fraction]Ordered By: Dr. Olguin on 07-13-2022 Hematocrit (Bld) [Volume fraction] 39.1 % 40-54 [facility] Laboratory - Chemistry and C hemistry - challengeOrdered By: Dr. Olguin on 07-13-2022 ALP [Catalytic activity/Vol] 72 U/L 45-117 [facility] ALT [Catalytic activity/Vol] 20 U/L 16-61 [facility] CO2 [Moles/Vol] 29.0 mmol/L 21.0-32.0 [facility] Globulin (S) [Mass/Vol] 3.7 g/dL 2.2-4.2 [facility] Urea nitrogen/Creatinine [Mass ratio] 27.6 mg/mg 10-20 [facility] Laboratory - Hematology and Cell countsOrdered By: Dr. Olguin on 07-13-2022 Erythrocyte distribution width (RBC) [Entitic vol] 50.1 fL 35.1-43.9 [facility] Erythrocyte distribution width (RBC) [Ratio] 14.4 % 11.6-14.6 [facility] Immature granulocytes/100 WBC (Bld) 0.400 % 0.0-0.9 [facility] Comment on above: IG% - Immature Granu locytes (promyelocytes, myelocytes and metamyelocytes) > 1% indicates that a LEFT SHIFT is Present. MCH (RBC) [Entitic mass] 31.1 pg 27.0-32.0 [facility] Nucleated RBC/100 WBC (Bld) [Ratio] 0.3 % 0-5 [facility] MCHC Auto (RBC) [Mass/Vol]Or dered By: Dr. Olguin on 07-13-2022 MCHC (RBC) [Mass/Vol] 32.7 g/dL 32-36 [facility] No Panel InformationOrdered By: Dr. Olguin on 07-13-2022 Estimated GFR (MDRD) Amer 110 mL/min >60 [facility] Comment on above: GFR Calc Estimated GFR (MDRD) Non-Af Amer 91 mL/min >60 [facility] Comment on above: Non- GFR Calc Platelets bldOrdered By: Dr. Olguin on 07-13-2022 Platelets (Bld) [#/Vol] 164 10*3/uL 150-450 [facility] RBC morphologyOrdered By: Dr Kris Olguin on 07-13-2022 RBC morphology finding Nom (Bld) NORM C+C NORMAL NORM C&C [facility] Serum or plasma albumin shweta urement (mass/volume)Ordered By: Dr. Olguin on 07-13-2022 Albumin [Mass/Vol] 3.4 g/dL 3.2-5.0 [facility] Serum or plasma albumin/glob ulin mass ratioOrdered By: Dr. Olguin on 07-13-2022 Albumin/Globulin [Mass ratio] 0.9 {ratio} 0.9-2.4 [facility] [facility] [place] Serum or plasma calcium shweta urement (mass/volume)Ordered By: Dr. Olguin on 07-13-2022 Calcium [Mass/Vol] 9.3 mg/dL 8.5-10.1 [facility] Serum or plasma creatinine m easurement (mass/volume)Ordered By: Dr. Olguin on 07-13-2022 Creatinine [Mass/Vol] 0.87 mg/dL 0.70-1.30 [facility] Comment on above: The validity of the calculated GFR & GFRAA in patients over 70 years has not been determined. Clinical correlation is essential. Serum or plasma urea nitroge n measurement (mass/volume)Ordered By: Dr. Olguin on 07-13-2022 Urea nitrogen [Mass/Vol] 24 mg/dL 7-18 [facility] [place] Thin prep Papanicolaou smear with manual screeningOrdered By: Dr. Olguin on 07-13-2022 Thin prep Papanicolaou smear with manual screening 17 U/L 15-37 [facility] [place] Thin prep Papanicolaou smear with manual screening 7 5-15 [facility] [place] Absolute lymphocyte countOrd ered By: Dr. Olguin on 03-30-2022 Lymphocytes Auto (Unsp spec) [#/Vol] 1.77 10*3/uL 0.83-4.51 [facility] [place] Basophil percentageOrdered B y: Dr. Olguin on 03-30-2022 Basophils/100 WBC (Bld) 0.4 % 0-1 [facility] [place] Bilirubin [Mass/Vol] 0.60 mg/dL 0.20-1.00 [facility] Comment on above: For patients on eltr ombopag therapy, use of Dimension Rulo TBIL is not recommended. Chloride [Moles/Vol] 107 mmol/L 98-107 [facility] Eosinophils/100 WBC (Bld) 2.6 % 0-5 [facility] [place] Glucose [Mass/Vol] 116 mg/dL 74-106 [facility] Comment on above: Fasting Glucose resu lt from 100 to 125 mg/dL suggests IMPAIRED HOMEOSTASIS per A.D.A. criteria. Neutrophils (Bld) [#/Vol] 2.9 10*3/uL 2.0-7.7 [facility] [place] Neutrophils/100 WBC (Bld) 54.1 % 47-70 [facility] [place] Potassium [Moles/Vol] 3.7 mmol/L 3.5-5.1 [facility] Protein [Mass/Vol] 7.1 g/dL 6.4-8.2 [facility] Sodium [Moles/Vol] 141 mmol/L 136-145 [facility] WBC (Bld) [#/Vol] 5.3 10*3/uL 4.4-11.0 [facility] Blood erythrocytes count (nu mber/volume)Ordered By: Dr. Olguin on 03-30-2022 RBC (Bld) [#/Vol] 4.07 10*6/uL 4.6-6.2 [facility] Blood hemoglobin measurement (mass/volume)Ordered By: Dr. Olguin on 03-30-2022 Hemoglobin (Bld) [Mass/Vol] 13.0 g/dL 13.0-16.5 [facility] [place] Blood lymphocytes/100 leukoc ytesOrdered By: Dr. Olguin on 03-30-2022 Lymphocytes/100 WBC (Bld) 33.1 % 19-41 [facility] [place] Blood monocytes/100 leukocyt esOrdered By: Dr. Olguin on 03-30-2022 Monocytes/100 WBC (Bld) 9.2 % 0-10 [facility] [place] Blood platelet adequacy dete ction by light microscopyOrdered By: Dr. Olguin on 03-30-2022 Platelets LM Ql (Bld) ADEQUATE ADEQ [facility] Blood platelet morphology de termination (nominal result)Ordered By: Dr. Olguin on 03-30-2022 Platelet morphology finding Nom (Bld) CLUMPED [facility] [place] Determination of erythrocyte mean corpuscular volume (MCV)Ordered By: Dr. Olguin on 03-30-2022 MCV (RBC) [Entitic vol] 97.1 fL 80-94 [facility] [place] Hematocrit Auto (Bld) [Volum e fraction]Ordered By: Dr. Olguin on 03-30-2022 Hematocrit (Bld) [Volume fraction] 39.5 % 40-54 [facility] [place] Laboratory - Chemistry and C hemistry - challengeOrdered By: Dr. Olguin on 03-30-2022 ALP [Catalytic activity/Vol] 72 U/L 45-117 [facility] [place] ALT [Catalytic activity/Vol] 21 U/L 16-61 [facility] [place] CO2 [Moles/Vol] 29.0 mmol/L 21.0-32.0 [facility] [place] Globulin (S) [Mass/Vol] 3.9 g/dL 2.2-4.2 [facility] [place] Urea nitrogen/Creatinine [Mass ratio] 19.4 mg/mg 10-20 [facility] [place] Laboratory - Hematology and Cell countsOrdered By: Dr. Olguin on 03-30-2022 Erythrocyte distribution width (RBC) [Entitic vol] 49.4 fL 35.1-43.9 [facility] [place] Erythrocyte distribution width (RBC) [Ratio] 13.9 % 11.6-14.6 [facility] [place] Immature granulocytes/100 WBC (Bld) 0.600 % 0.0-0.9 [facility] [place] Comment on above: IG% - Immature Granu locytes (promyelocytes, myelocytes and metamyelocytes) > 1% indicates that a LEFT SHIFT is Present. MCH (RBC) [Entitic mass] 31.9 pg 27.0-32.0 [facility] [place] Nucleated RBC/100 WBC (Bld) [Ratio] 0 % 0-5 [facility] [place] MCHC Auto (RBC) [Mass/Vol]Or dered By: Dr. Olguin on 03-30-2022 MCHC (RBC) [Mass/Vol] 32.9 g/dL 32-36 [facility] No Panel InformationOrdered By: Dr. Olguin on 03-30-2022 Estimated GFR (MDRD) Amer 117 mL/min >60 [facility] [place] Comment on above: GFR Calc Estimated GFR (MDRD) Non-Af Amer 97 mL/min >60 [facility] [place] Comment on above: Non- GFR Calc Platelets bldOrdered By: Dr. Olguin on 03-30-2022 Platelets (Bld) [#/Vol] See comment [id number] [facility] [place] Comment on above: Please note: For thi s sample, a platelet estimate is provided rather than a platelet count due to platelet clumping. Other parameters associated with this sample are not affected by platelet clumping. If a more accurate platelet count is required, a redraw of the patient will be necessary. Serum or plasma albumin shweta urement (mass/volume)Ordered By: Dr. Olguin on 03-30-2022 Albumin [Mass/Vol] 3.2 g/dL 3.2-5.0 [facility] Serum or plasma albumin/glob ulin mass ratioOrdered By: Dr. Olguin on 03-30-2022 Albumin/Globulin [Mass ratio] 0.8 {ratio} 0.9-2.4 [facility] [place] Serum or plasma calcium shweta urement (mass/volume)Ordered By: Dr. Olguin on 03-30-2022 Calcium [Mass/Vol] 9.3 mg/dL 8.5-10.1 [facility] Serum or plasma creatinine m easurement (mass/volume)Ordered By: Dr. Olguin on 03-30-2022 Creatinine [Mass/Vol] 0.83 mg/dL 0.70-1.30 [facility] Comment on above: The validity of the calculated GFR & GFRAA in patients over 70 years has not been determined. Clinical correlation is essential. Serum or plasma urea nitroge n measurement (mass/volume)Ordered By: Dr. Olguin on 03-30-2022 Urea nitrogen [Mass/Vol] 16 mg/dL 7-18 [facility] [place] Thin prep Papanicolaou smear with manual screeningOrdered By: Dr. Olguin on 03-30-2022 Thin prep Papanicolaou smear with manual screening 15 U/L 15-37 [facility] [place] Thin prep Papanicolaou smear with manual screening 5 5-15 [facility] [place] Whole blood hemoglobin A1c/t otal hemoglobin ratio (mass fraction)Ordered By: Dr. Olguin on 03-30-2022 HbA1c (Bld) [Mass fraction] 6.2 % 3.8-5.6 [facility] [place] Comment on above: Normal < 5.7 % Predi abetic 5.7 - 6.4 % Diabetic >or= 6.5 % Please note range changes. Glucose Glucometer (BldC) [M ass/Vol]on 01-05-2022 Glucose [Mass/Vol] 162 mg/dL 74-106 [facility] Work Phone: Comment on above: MANAGEMENT OF PATIEN T CARE PER NURSING PROTOCOL Absolute lymphocyte counton 10-03-2021 Lymphocytes Auto (Unsp spec) [#/Vol] 1.66 10*3/uL 0.83-4.51 [facility] [place] Work Phone: Basophil percentageon 2021 Basophils/100 WBC (Bld) 0.4 % 0-1 [facility] [place] Work Phone: Bilirubin [Mass/Vol] 0.40 mg/dL 0.20-1.00 [facility] Work Phone: Comment on above: For patients on eltr ombopag therapy, use of Dimension Rulo TBIL is not recommended. Chloride [Moles/Vol] 106 mmol/L 98-107 [facility] Work Phone: Eosinophils/100 WBC (Bld) 2.1 % 0-5 [facility] [place] Work Phone: Glucose [Mass/Vol] 125 mg/dL 74-106 [facility] Work Phone: Comment on above: Fasting Glucose resu lt from 100 to 125 mg/dL suggests IMPAIRED HOMEOSTASIS per A.D.A. criteria. Neutrophils (Bld) [#/Vol] 3.3 10*3/uL 2.0-7.7 [facility] [place] Work Phone: Neutrophils/100 WBC (Bld) 58.4 % 47-70 [facility] [place] Work Phone: Potassium [Moles/Vol] 3.8 mmol/L 3.5-5.1 [facility] Work Phone: Protein [Mass/Vol] 7.0 g/dL 6.4-8.2 [facility] Work Phone: Sodium [Moles/Vol] 139 mmol/L 136-145 [facility] Work Phone: WBC (Bld) [#/Vol] 5.6 10*3/uL 4.4-11.0 [facility] Work Phone: Blood erythrocytes count (nu mber/volume)on 10-03-2021 RBC (Bld) [#/Vol] 4.05 10*6/uL 4.6-6.2 [facility] Work Phone: Blood hemoglobin measurement (mass/volume)on 10-03-2021 Hemoglobin (Bld) [Mass/Vol] 12.7 g/dL 13.0-16.5 [facility] [place] Work Phone: Blood lymphocytes/100 leukoc yteson 10-03-2021 Lymphocytes/100 WBC (Bld) 29.5 % 19-41 [facility] [place] Work Phone: Blood monocytes/100 leukocyt eson 10-03-2021 Monocytes/100 WBC (Bld) 9.1 % 0-10 [facility] [place] Work Phone: Blood platelet adequacy dete ction by light microscopyon 10-03-2021 Platelets LM Ql (Bld) ADEQUATE ADEQ [facility] Work Phone: Blood platelet mean volumeon 10-03-2021 Platelet mean volume (Bld) [Entitic vol] 14.2 fL 6.2-12.0 [facility] [place] Work Phone: Determination of erythrocyte mean corpuscular volume (MCV)on 10-03-2021 MCV (RBC) [Entitic vol] 96.8 fL 80-94 [facility] [place] Work Phone: Hematocrit Auto (Bld) [Volum e fraction]on 10-03-2021 Hematocrit (Bld) [Volume fraction] 39.2 % 40-54 [facility] [place] Work Phone: Laboratory - Chemistry and C hemistry - challengeon 10-03-2021 ALP [Catalytic activity/Vol] 66 U/L 45-117 [facility] [place] Work Phone: ALT [Catalytic activity/Vol] 23 U/L 16-61 [facility] [place] Work Phone: CO2 [Moles/Vol] 27.0 mmol/L 21.0-32.0 [facility] [place] Work Phone: Globulin (S) [Mass/Vol] 4.1 g/dL 2.2-4.2 [facility] [place] Work Phone: Urea nitrogen/Creatinine [Mass ratio] 19.3 mg/mg 10-20 [facility] [place] Work Phone: Laboratory - Hematology and Cell countson 10-03-2021 Erythrocyte distribution width (RBC) [Entitic vol] 51.3 fL 35.1-43.9 [facility] [place] Work Phone: Erythrocyte distribution width (RBC) [Ratio] 14.4 % 11.6-14.6 [facility] [place] Work Phone: Immature granulocytes/100 WBC (Bld) 0.500 % 0.0-0.9 [facility] [place] Work Phone: Comment on above: IG% - Immature Granu locytes (promyelocytes, myelocytes and metamyelocytes) > 1% indicates that a LEFT SHIFT is Present. MCH (RBC) [Entitic mass] 31.4 pg 27.0-32.0 [facility] [place] Work Phone: Nucleated RBC/100 WBC (Bld) [Ratio] 0 % 0-5 [facility] [place] Work Phone: MCHC Auto (RBC) [Mass/Vol]on 10-03-2021 MCHC (RBC) [Mass/Vol] 32.4 g/dL 32-36 [facility] Work Phone: No Panel Informationon 10-03 Estimated GFR (MDRD) Amer 109 mL/min >60 [facility] [place] Work Phone: Comment on above: GFR Calc Estimated GFR (MDRD) Non-Af Amer 90 mL/min >60 [facility] [place] Work Phone: Comment on above: Non- GFR Calc Platelets bldon 10-03-2021 Platelets (Bld) [#/Vol] See comment 150-450 [facility] [place] Work Phone: Comment on above: Please note: For thi s sample, a platelet estimate is provided rather than a platelet count due to platelet clumping. Other parameters associated with this sample are not affected by platelet clumping. If a more accurate platelet count is required, a redraw of the patient will be necessary. Serum or plasma C reactive p rotein measurement (mass/volume)on 10-03-2021 CRP [Mass/Vol] 6.39 mg/L 0.0-3.0 [facility] [place] Work Phone: Comment on above: C-Reactive Protein ( CRP) provides useful information for thediagnosis, therapy and monitoring of inflammatory processesand associated diseases. For the evaluation of Relative Riskfor Cardiovascular Disease, a High Sensitivity CRP (HSCRP)should be ordered. Serum or plasma albumin shweta urement (mass/volume)on 10-03-2021 Albumin [Mass/Vol] 2.9 g/dL 3.2-5.0 [facility] Work Phone: Serum or plasma albumin/glob ulin mass ratioon 10-03-2021 Albumin/Globulin [Mass ratio] 0.7 {ratio} 0.9-2.4 [facility] [place] Work Phone: Serum or plasma calcium shweta urement (mass/volume)on 10-03-2021 Calcium [Mass/Vol] 8.3 mg/dL 8.5-10.1 [facility] Work Phone: Serum or plasma creatinine m easurement (mass/volume)on 10-03-2021 Creatinine [Mass/Vol] 0.88 mg/dL 0.70-1.30 [facility] Work Phone: Comment on above: The validity of the calculated GFR & GFRAA in patients over 70 years has not been determined. Clinical correlation is essential. Serum or plasma urea nitroge n measurement (mass/volume)on 10-03-2021 Urea nitrogen [Mass/Vol] 17 mg/dL 7-18 [facility] [place] Work Phone: Thin prep Papanicolaou smear with manual screeningon 10-03-2021 Thin prep Papanicolaou smear with manual screening 15 U/L 15-37 [facility] [place] Work Phone: Thin prep Papanicolaou smear with manual screening 6 5-15 [facility] [place] Work Phone: Whole blood hemoglobin A1c/t otal hemoglobin ratio (mass fraction)on 10-03-2021 HbA1c (Bld) [Mass fraction] 5.3 % 3.8-5.6 [facility] [place] Work Phone: Comment on above: Normal < 5.7 % Predi abetic 5.7 - 6.4 % Diabetic >or= 6.5 % Please note range changes. No Panel Informationon 07-04 Urine Microalbumin/Creatinin e Ratio 10.0 mg/g CRE <30 [facility] [place] Work Phone: Thin prep Papanicolaou smear with manual screeningon 07-04-2021 Thin prep Papanicolaou smear with manual screening 20.5 mg/L NO RANGE EST. [facility] [place] Work Phone: Urine creatinine measurement (mass/volume)on 07-04-2021 Creatinine (U) [Mass/Vol] 204.00 mg/dL NO RANGE EST. [facility] [place] Work Phone: Absolute lymphocyte counton 07-03-2021 Lymphocytes Auto (Unsp spec) [#/Vol] 1.81 10*3/uL 0.83-4.51 [facility] [place] Work Phone: Basophil percentageon 2021 Basophils/100 WBC (Bld) 0.4 % 0-1 [facility] [place] Work Phone: Bilirubin [Mass/Vol] 0.50 mg/dL 0.20-1.00 [facility] Work Phone: Comment on above: For patients on eltr ombopag therapy, use of Dimension Rulo TBIL is not recommended. Chloride [Moles/Vol] 107 mmol/L 98-107 [facility] Work Phone: Eosinophils/100 WBC (Bld) 2.4 % 0-5 [facility] [place] Work Phone: Glucose [Mass/Vol] 192 mg/dL 74-106 [facility] Work Phone: Comment on above: Fasting Glucose resu lt greater than or equal to 126 mg/dL suggests DIABETES MELLITUS per A.D.A. criteria. Neutrophils (Bld) [#/Vol] 2.9 10*3/uL 2.0-7.7 [facility] [place] Work Phone: Neutrophils/100 WBC (Bld) 52.6 % 47-70 [facility] [place] Work Phone: Potassium [Moles/Vol] 3.6 mmol/L 3.5-5.1 [facility] Work Phone: Protein [Mass/Vol] 6.9 g/dL 6.4-8.2 [facility] Work Phone: Sodium [Moles/Vol] 139 mmol/L 136-145 [facility] Work Phone: WBC (Bld) [#/Vol] 5.5 10*3/uL 4.4-11.0 [facility] Work Phone: Blood erythrocytes count (nu mber/volume)on 07-03-2021 RBC (Bld) [#/Vol] 4.14 10*6/uL 4.6-6.2 [facility] Work Phone: Blood hemoglobin measurement (mass/volume)on 07-03-2021 Hemoglobin (Bld) [Mass/Vol] 12.2 g/dL 13.0-16.5 [facility] [place] Work Phone: Blood lymphocytes/100 leukoc yteson 07-03-2021 Lymphocytes/100 WBC (Bld) 33.2 % 19-41 [facility] [place] Work Phone: Blood monocytes/100 leukocyt eson 07-03-2021 Monocytes/100 WBC (Bld) 10.8 % 0-10 [facility] [place] Work Phone: Blood platelet mean volumeon 07-03-2021 Platelet mean volume (Bld) [Entitic vol] 13.6 fL 6.2-12.0 [facility] [place] Work Phone: Determination of erythrocyte mean corpuscular volume (MCV)on 07-03-2021 MCV (RBC) [Entitic vol] 94.4 fL 80-94 [facility] [place] Work Phone: Hematocrit Auto (Bld) [Volum e fraction]on 07-03-2021 Hematocrit (Bld) [Volume fraction] 39.1 % 40-54 [facility] [place] Work Phone: Laboratory - Chemistry and C hemistry - challengeon 07-03-2021 ALP [Catalytic activity/Vol] 76 U/L 45-117 [facility] [place] Work Phone: ALT [Catalytic activity/Vol] 19 U/L 16-61 [facility] [place] Work Phone: CO2 [Moles/Vol] 28.0 mmol/L 21.0-32.0 [facility] [place] Work Phone: Globulin (S) [Mass/Vol] 4.1 g/dL 2.2-4.2 [facility] [place] Work Phone: Urea nitrogen/Creatinine [Mass ratio] 19.3 mg/mg 10-20 [facility] [place] Work Phone: Laboratory - Hematology and Cell countson 07-03-2021 Erythrocyte distribution width (RBC) [Entitic vol] 49.1 fL 35.1-43.9 [facility] [place] Work Phone: [phone] Erythrocyte distribution width (RBC) [Ratio] 14.4 % 11.6-14.6 [facility] [place] Work Phone: Immature granulocytes/100 WBC (Bld) 0.600 % 0.0-0.9 [facility] [place] Work Phone: Comment on above: IG% - Immature Granu locytes (promyelocytes, myelocytes and metamyelocytes) > 1% indicates that a LEFT SHIFT is Present. MCH (RBC) [Entitic mass] 29.5 pg 27.0-32.0 [facility] [place] Work Phone: Nucleated RBC/100 WBC (Bld) [Ratio] 0 % 0-5 [facility] [place] Work Phone: MCHC Auto (RBC) [Mass/Vol]on 07-03-2021 MCHC (RBC) [Mass/Vol] 31.2 g/dL 32-36 [facility] Work Phone: No Panel Informationon 07-03 Estimated GFR (MDRD) Amer 109 mL/min >60 [facility] [place] Work Phone: Comment on above: GFR Calc Estimated GFR (MDRD) Non-Af Amer 90 mL/min >60 [facility] [place] Work Phone: Comment on above: Non- GFR Calc Thyroid Stimulating Hormone (TSH) 0.02 uIU/mL 0.358-3.74 [facility] [place] Work Phone: Platelets bldon 07-03-2021 Platelets (Bld) [#/Vol] 214 10*3/uL 150-450 [facility] [place] Work Phone: Serum or plasma albumin shweta urement (mass/volume)on 07-03-2021 Albumin [Mass/Vol] 2.8 g/dL 3.2-5.0 [facility] Work Phone: Serum or plasma albumin/glob ulin mass ratioon 07-03-2021 Albumin/Globulin [Mass ratio] 0.7 {ratio} 0.9-2.4 [facility] [place] Work Phone: Serum or plasma calcium shweta urement (mass/volume)on 07-03-2021 Calcium [Mass/Vol] 8.4 mg/dL 8.5-10.1 [facility] Work Phone: Serum or plasma creatinine m easurement (mass/volume)on 07-03-2021 Creatinine [Mass/Vol] 0.88 mg/dL 0.70-1.30 [facility] Work Phone: Comment on above: The validity of the calculated GFR & GFRAA in patients over 70 years has not been determined. Clinical correlation is essential. Serum or plasma urea nitroge n measurement (mass/volume)on 07-03-2021 Urea nitrogen [Mass/Vol] 17 mg/dL 7-18 [facility] [place] Work Phone: Thin prep Papanicolaou smear with manual screeningon 07-03-2021 Thin prep Papanicolaou smear with manual screening 19 U/L 15-37 [facility] [place] Work Phone: Thin prep Papanicolaou smear with manual screening 4 5-15 [facility] [place] Work Phone: Whole blood hemoglobin A1c/t otal hemoglobin ratio (mass fraction)on 07-03-2021 HbA1c (Bld) [Mass fraction] 5.8 % 3.8-5.6 [facility] [place] Work Phone: Comment on above: Normal < 5.7 % Predi abetic 5.7 - 6.4 % Diabetic >or= 6.5 % Please note range changes. EYE CULTUREon 01-31-2021 EYE CULTURE ORGANISM 1: ALPHA HEMOLYTIC STREPTOCOCCI QUANTITATION MODERATE ALPHA HEMOLYTIC STREPTOCOCCI: REACTION AMPICILLIN 0.25 S AZITHROMYCIN >2 R CEFEPIME <0.25 S CEFOTAXIME <0.25 S CHLORAMPHENICOL 2 S CLINDAMYCIN >0.5 R ERYTHROMYCIN >0.5 R PENICILLIN 0.25 I TETRACYCLINE >4 R VANCOMYCIN 0.5 S LEVOFLOXACIN 0.5 S MEROPENEM <0.06 S Normal [facility] [place] Comment on above: Performed By: #### M [id number], [id number] #### [facility] [address] [place] [address] GRAM STAINon 01-29-2021 Microscopic observation Gram stain Nom (Unsp spec) GRAM STAIN NO WBC'S SEEN MANY GRAM POSITIVE COCCI RARE GRAM NEGATIVE COCCI Normal [facility] Comment on above: Performed By: #### M [id number], [id number] #### [facility] [address] [phone] NM MYOCARDIAL SPECT STRESS/R ESTon 06-10-2018 NM MYOCARDIAL SPECT STRESS/REST ORIGINALNM MYOCARDIAL SPECT STRESS/REST CLINICAL STATEMENT: DIALATED CARDIOMYEOPATHY TECHNIQUE:Lexiscan dose:0.4 mgRadiopharmaceutical (stress): Tc-99m Sestamibi Dose:30.6 mCi Radiopharmaceutical (rest): Tc-99m Sestamibi Dose:10.4 mCi SPECT acquisition and processingReconstruction and reorientation of SPECT images into short axis, vertical and horizontal long axis planes Quantitative LVEF assessment COMPARISON:None REPORT:Poor quality studyPoststress myocardial perfusion images showed mild perfusion defect at apical septal mid anterior wall and moderate perfusion defect at inferior jaffe Resting myocardial perfusion images showed very mild improved perfusion at the inferior wall and anterior wall On the raw images diaphragmatic attenuation was noted more pronounced on the stress images and some motion artifact was noted Due to atrial fibrillation LVEF could not be obtained, no gated images are available Tid 0.99 IMPRESSION:Poor quality studyNo gated images are availableThere is mostly matched perfusion defect at inferior and anterior wall with very mild perfusion mismatch at both jaffe. Above perfusion defect can be explained by artifacts but without gated images cannot comment about weather it is artifact or infarct with mild jada infarct ischemia. It is encouraging that mismatch is very small severityIf clinically indicated suggest different modality of study Interpreted By: Marisol TuckerPreliminary Report By: Marisol TuckerElectronically Signed By: Marisol Tucker Dictated Date: 06/10/2018 12:05:52 PM Prelim Date: 06/10/2018 12:05:52 PM Sign Date: 06/10/2018 12:18:54 PM Normal [facility]ly [facility] ([place]) Bacteria identified Cx Nom ( Wound) Wound Culture Erysipelothrix rhusiopathiae [facility] [place] Work Phone: Wound Culture Actinomyces odontolyticus [facility] [place] Work Phone: Gram stain for investigation of transfusion reaction Microscopic observation Gram stain Nom (Unsp spec) [facility] [place] Work Phone: Vital Signs Date Time Vital Sign Value Performing Clinician Facility 11-10-2024 07:26-0400 Body mass index (BMI) [Ratio] 28.7 kg/m2 Dr. Jessi Olguin MD Work Phone: 4(977)970-581851 [place] [address] 11-10-2024 07:26-0400 Body temperature 97.3 [degF] Dr. Jessi Olguin MD Work Phone: 7(325)994-130451 [place] [address] 11-10-2024 07:26-0400 Body weight 104.[address] Jessi Olguin MD Work Phone: 4(194)426-728951 [place] [address] 11-10-2024 07:26-0400 Diastolic blood pressure 64 mm[Hg] Dr. Jessi Olguin MD Work Phone: 0(903)309-983551 [place] [address] 11-10-2024 07:26-0400 Heart rate 73 /min Dr. Jessi Olguin MD Work Phone: 8(162)161-203751 [place] [address] 11-10-2024 07:26-0400 Respiratory rate 18 /min Dr. Jessi Olguin MD Work Phone: 9(232)266-715651 [place] [address] 11-10-2024 07:26-0400 SaO2% (BldA) [Mass fraction] 96 % Dr. Jessi Olguin MD Work Phone: 7(188)316-167151 [place] [address] 11-10-2024 07:26-0400 Systolic blood pressure 106 mm[Hg] Dr. Jessi Olguin MD Work Phone: 1(369)252-363951 [place] [address] 09-21-2024 17:42-0400 Body temperature 97.8 [degF] Dr. Jessi Olguin MD Work Phone: 4(137)217-033551 [place] [address] 09-21-2024 17:42-0400 Diastolic blood pressure 59 mm[Hg] Dr. Jessi Olguin MD Work Phone: 8(227)091-389051 [place] [address] 09-21-2024 17:42-0400 Heart rate 71 /min Dr. Jessi Olguin MD Work Phone: 0(771)008-690451 [place] [address] 09-21-2024 17:42-0400 Respiratory rate 18 /min Dr. Jessi Olguin MD Work Phone: 5(064)198-609951 [place] [address] 09-21-2024 17:42-0400 SaO2% (BldA) [Mass fraction] 93 % Dr. Jessi Olguin MD Work Phone: [facility] [place] 09-21-2024 17:42-0400 Systolic blood pressure 116 mm[Hg] Dr. Jessi Olguin MD Work Phone: 2(043)325-059251 [place] [address] 09-21-2024 14:33-0400 Body height 190.[address] Jessi Olguin MD Work Phone: 6(106)470-476451 [place] [address] 09-03-2024 09:14-0400 Heart rate 88 /min Dr. Jessi Olguin MD Work Phone: 8(030)739-507351 [place] [address] 09-03-2024 09:07-0400 Body temperature 98.2 [degF] Dr. Jessi Olguin MD Work Phone: 2(342)686-793451 [place] [address] 09-03-2024 09:07-0400 Diastolic blood pressure 74 mm[Hg] Dr. Jessi Olguin MD Work Phone: 4(871)316-673751 [place] [address] 09-03-2024 09:07-0400 Respiratory rate 15 /min Dr. Jessi Olguin MD Work Phone: 3(794)734-471551 [place] [address] 09-03-2024 09:07-0400 SaO2% (BldA) [Mass fraction] 95 % Dr. Jessi Olguin MD Work Phone: 4(668)240-593251 [place] [address] 09-03-2024 09:07-0400 Systolic blood pressure 105 mm[Hg] Dr. Jessi Olguin MD Work Phone: 6(977)291-265982 [place] [address] 09-03-2024 05:21-0400 Body mass index (BMI) [Ratio] 29 kg/m2 Dr. Jessi Olguin MD Work Phone: 5(284)614-708882 [place] [address] 09-03-2024 05:21-0400 Body weight 105.[address] Jessi Olguin MD Work Phone: 3(017)451-479551 [place] [address] 09-02-2024 19:15-0400 Inhaled oxygen flow rate 3 L/min Dr. Jessi Olguin MD Work Phone: 9(192)482-352982 [place] [address] 09-02-2024 09:42-0400 Body height 190.[address] Jessi Olguin MD Work Phone: [facility] [place] 09-01-2024 21:51-0400 Body temperature 97.6 [degF] Dr. Jessi Olguin MD Work Phone: [facility] [place] 09-01-2024 21:51-0400 Diastolic blood pressure 80 mm[Hg] Dr. Jessi Olguin MD Work Phone: 0(102)095-387382 [place] [address] 09-01-2024 21:51-0400 Heart rate 71 /min Dr. Jessi Olguin MD Work Phone: 3(596)486-515251 [place] [address] 09-01-2024 21:51-0400 Respiratory rate 20 /min Dr. Jessi Olguin MD Work Phone: 3(124)187-760351 [place] [address] 09-01-2024 21:51-0400 SaO2% (BldA) [Mass fraction] 99 % Dr. Jessi Olguin MD Work Phone: 3(409)316-792782 [place] [address] 09-01-2024 21:51-0400 Systolic blood pressure 98 mm[Hg] Dr. Jessi Olguin MD Work Phone: 0(439)251-000182 [place] [address] 09-01-2024 18:00-0400 Inhaled oxygen flow rate 2 L/min Dr. Jessi Olguin MD Work Phone: 7(085)135-322482 [place] [address] 09-01-2024 16:42-0400 Body height 190.[address] Jessi Olguin MD Work Phone: 1(065)293-299882 [place] [address] 09-01-2024 16:42-0400 Body mass index (BMI) [Ratio] 30 kg/m2 Dr. Jessi Olguin MD Work Phone: [facility] [place] 09-01-2024 16:42-0400 Body weight [address] Jessi Olguin MD Work Phone: 3(095)939-990882 [place] [address] 09-01-2024 07:55-0400 Body mass index (BMI) [Ratio] 29.1 kg/m2 Dr. Jessi Ogluin MD Work Phone: 4(992)439-315682 [place] [address] 09-01-2024 07:55-0400 Body weight 105.[address] Jessi Olguin MD Work Phone: [facility] [place] 09-01-2024 07:55-0400 Diastolic blood pressure 44 mm[Hg] Dr. Jessi Olguin MD Work Phone: [facility] [place] 09-01-2024 07:55-0400 Heart rate 78 /min Dr. Jessi Olguin MD Work Phone: 9(777)535-999682 [place] [address] 09-01-2024 07:55-0400 Respiratory rate 18 /min Dr. Jessi Olguin MD Work Phone: 0(729)950-728682 [place] [address] 09-01-2024 07:55-0400 Systolic blood pressure 79 mm[Hg] Dr. Jessi Olguin MD Work Phone: 3(984)438-240751 [place] [address] 08-03-2024 07:53-0500 Body temperature 97.4 [degF] Dr. Jessi Olguin MD Work Phone: 6(344)643-053982 [place] [address] 08-03-2024 07:53-0500 Diastolic blood pressure 73 mm[Hg] Dr. Jessi Olguin MD Work Phone: 2(650)976-005682 [place] [address] 08-03-2024 07:53-0500 Heart rate 70 /min Dr. Jessi Olguin MD Work Phone: 3(698)033-579535 [address] 08-03-2024 07:53-0500 Respiratory rate 16 /min Dr. Jessi Olguin MD Work Phone: 2(693)658-727682 [place] [address] 08-03-2024 07:53-0500 SaO2% (BldA) [Mass fraction] 96 % Dr. Jessi Olguin MD Work Phone: [facility] [place] 08-03-2024 07:53-0500 Systolic blood pressure 116 mm[Hg] Dr. Jessi Olguin MD Work Phone: 8(637)519-640082 [place] [address] 07-07-2024 04:23-0500 Body temperature 98.2 [degF] Dr. Jessi Olguin MD Work Phone: [facility] [place] 07-07-2024 04:23-0500 Diastolic blood pressure 81 mm[Hg] Dr. Jessi Olguin MD Work Phone: [facility] [place] 07-07-2024 04:23-0500 Heart rate 70 /min Dr. Jessi Olguin MD Work Phone: [facility] [place] 07-07-2024 04:23-0500 Respiratory rate 20 /min Dr. Jessi Olguin MD Work Phone: [facility] [place] 07-07-2024 04:23-0500 SaO2% (BldA) [Mass fraction] 95 % Dr. Jessi Olguin MD Work Phone: [facility] [place] 07-07-2024 04:23-0500 Systolic blood pressure 124 mm[Hg] Dr. Jessi Olguin MD Work Phone: [facility] [place] 07-07-2024 02:06-0500 Inhaled oxygen flow rate 2 L/min Dr. Jessi Olguin MD Work Phone: [facility] [place] 07-07-2024 01:54-0500 Body mass index (BMI) [Ratio] 31.1 kg/m2 Dr. Jessi Olguin MD Work Phone: [facility] [place] 07-07-2024 01:54-0500 Body weight 113.[address] Jessi Olguin MD Work Phone: [facility] [place] 07-01-2024 11:10-0500 Heart rate 70 /min DR SEDRICK ALEXANDER MD [facility] 07-01-2024 11:10-0500 Reason For Taking VItal Signs DR SEDRICK ALEXANDER MD [facility] 07-01-2024 10:55-0500 Heart rate 71 /min DR SEDRICK ALEXANDER MD [facility] 07-01-2024 10:55-0500 Respiratory rate 18 /min DR SEDRICK ALEXANDER MD [facility] 07-01-2024 10:52-0500 systolic 109 mm[Hg] DR SEDRICK ALEXANDER MD [facility] 07-01-2024 10:50-0500 Heart rate 71 /min DR SEDRICK ALEXANDER MD [address] 07-01-2024 10:50-0500 Blood Pressure Cuff Size DR SEDRICK ALEXANDER MD [address] [place] [id number] 07-01-2024 10:50-[address] SEDRICK ALEXANDER MD [address] [place] [address] 07-01-2024 10:50-[address] SEDRICK ALEXANDER MD [address] [place] [address] 07-01-2024 10:50-0500 Body temperature 98.42 [degF] DR SEDRICK ALEXANDER MD [address] [place] [address] 07-01-2024 10:50-0500 Diastolic Blood Pressure Non-Invasive 68 mm[Hg] DR SEDRICK ALEXANDER MD [address] [place] [address] 07-01-2024 10:50-0500 Reason For Taking VItal Signs DR SEDRICK ALEXANDER MD [address] [place] [address] 07-01-2024 10:50-0500 Respiratory rate 18 /min DR SEDRICK ALEXANDER MD [address] [place] [address] 07-01-2024 10:50-0500 Systolic Blood Pressure Non-Invasive 128 mm[Hg] DR SEDRICK ALEXANDER MD [address] [place] [address] 07-01-2024 08:37-0500 Heart rate 70 /min DR SEDRICK ALEXANDER MD [address] [place] [address] 07-01-2024 08:06-0500 Heart rate 78 /min DR SEDRICK ALEXANDER MD [address] 07-01-2024 08:06-0500 Reason For Taking VItal Signs DR SEDRICK ALEXANDER MD [address] [place] [address] 07-01-2024 07:02-0500 Heart rate 71 /min DR SEDRICK ALEXANDER MD [address] [place] [address] 07-01-2024 07:02-0500 Respiratory rate 18 /min DR SEDRICK ALEXANDER MD [address] [place] [address] 07-01-2024 06:38-05[address] Pressure Cuff Size DR SEDRICK ALEXANDER MD [address] [place] [address] 07-01-2024 06:38-[address] SEDRICK ALEXANDER MD [address] [place] [address] 07-01-2024 06:38-[address] SEDRICK ALEXANDER MD [address] [place] [address] 07-01-2024 06:38-0500 Body temperature 98.42 [degF] DR SEDRICK ALEXANDER MD [address] [place] [address] 07-01-2024 06:38-0500 Diastolic Blood Pressure Non-Invasive 64 mm[Hg] DR SEDRICK ALEXANDER MD [address] [place] [address] 07-01-2024 06:38-0500 Mean blood pressure 92 mm[Hg] DR SEDRICK ALEXANDER MD [address] [place] [address] 07-01-2024 06:38-0500 Systolic Blood Pressure Non-Invasive 146 mm[Hg] DR SEDRICK ALEXANDER MD [address] [place] [address] 07-01-2024 02:25-0500 diastolic 66 mm[Hg] DR SEDRICK ALEXANDER MD [address] [place] [address] 07-01-2024 02:25-0500 Mean blood pressure 76 mm[Hg] DR SEDRICK ALEXANDER MD [address] [place] [address] 07-01-2024 00:00-0500 Mean blood pressure 67 mm[Hg] DR SEDRICK ALEXANDER MD [address] [place] [address] 07-01-2024 00:00-0500 Body temperature 98.06 [degF] DR SEDRICK ALEXANDER MD [address] [place] [address] 06-30-2024 18:47-0500 Heart rate 73 /min DR SEDRICK ALEXANDER MD [address] [place] [address] 06-30-2024 18:07-0500 Heart rate 70 /min DR SEDRICK ALEXANDER MD [address] [place] [address] 06-30-2024 17:36-[address] SEDRICK ALEXANDER MD [address] [place] [address] 06-30-2024 17:05-0500 Body temperature 97.52 [degF] DR SEDRICK ALEXANDER MD [address] [place] [address] 06-30-2024 17:00-0500 Respiratory Rate - Anes 0 br/min DR SEDRICK ALEXANDER MD [address] [place] [address] 06-30-2024 16:55-0500 Body temperature 94.8 [degF] DR SEDRICK ALEXANDER MD [address] [place] [address] 06-30-2024 16:55-0500 Respiratory Rate - Anes 12 br/min DR SEDRICK ALEXANDER MD [address] [place] [address] 06-30-2024 16:50-0500 Body temperature 94.89 [degF] DR SEDRICK ALEXANDER MD [address] [place] [address] 06-30-2024 16:50-0500 Respiratory Rate - Anes 12 br/min DR SEDRICK ALEXANDER MD [address] [place] [address] 06-30-2024 16:45-0500 Body temperature 94.77 [degF] DR SEDRICK ALEXANDER MD [address] [place] [address] 06-30-2024 10:23-0500 Blood Pressure Cuff Size DR SEDRICK ALEXANDER MD [address] [place] [address] 06-30-2024 10:23-[address] SEDRICK ALEXANDER MD [address] [place] [address] 06-29-2024 16:14-0500 Heart rate 65 /min DR SEDRICK ALEXANDER MD [address] [place] [address] 06-27-2024 12:50-0500 Body height [address] SEDRICK ALEXANDER MD [address] [place] [address] 06-27-2024 12:50-0500 Body weight 110.[address] SEDRICK ALEXANDER MD [address] [place] [address] 06-27-2024 12:50-0500 Body weight 30.61 kg/m2 DR SEDRICK ALEXANDER MD [facility] 06-27-2024 08:36-0500 Body weight 108.[address] Jessi Olguin MD Work Phone: [facility] [place] 06-27-2024 08:36-0500 Inhaled oxygen flow rate 4 L/min Dr. Jessi Olguin MD Work Phone: [facility] [place] 06-27-2024 08:36-0500 SaO2% (BldA) [Mass fraction] 91 % Dr. Jessi Olguin MD Work Phone: 8(342)841-028882 [place] [address] 06-27-2024 05:38-0500 Body mass index (BMI) [Ratio] 29.9 kg/m2 Dr. Jessi Olguin MD Work Phone: [facility] [place] 06-27-2024 03:00-0500 Body temperature 98.6 [degF] Dr. Jessi Olguin MD Work Phone: [facility] [place] 06-27-2024 03:00-0500 Diastolic blood pressure 81 mm[Hg] Dr. Jessi Olguin MD Work Phone: [facility] [place] 06-27-2024 03:00-0500 Heart rate 70 /min Dr. Jessi Olguin MD Work Phone: [facility] [place] 06-27-2024 03:00-0500 Respiratory rate 18 /min Dr. Jessi Olguin MD Work Phone: [facility] [place] 06-27-2024 03:00-0500 Systolic blood pressure 118 mm[Hg] Dr. Jessi Olguin MD Work Phone: [facility] [place] 05-25-2024 20:00-0500 Heart rate 71 /min Dr. Jessi Olguin MD Work Phone: [facility] [place] 05-25-2024 20:00-0500 Respiratory rate 18 /min Dr. Jessi Olguin MD Work Phone: [facility] [place] 05-25-2024 20:00-0500 SaO2% (BldA) [Mass fraction] 95 % Dr. Jessi Olguin MD Work Phone: [facility] [place] 05-25-2024 18:00-0500 Body temperature 96.2 [degF] Dr. Jessi Olguin MD Work Phone: [facility] [place] 05-25-2024 18:00-0500 Diastolic blood pressure 93 mm[Hg] Dr. Jessi Olguin MD Work Phone: 4(788)495-144282 [place] [address] 05-25-2024 18:00-0500 Systolic blood pressure 132 mm[Hg] Dr. Jessi Olguin MD Work Phone: 8(218)569-946082 [place] [address] 09-19-2023 08:00-0400 Body mass index (BMI) [Ratio] 31.4 kg/m2 Dr. Jessi Olguin Work Phone: 3(034)472-479882 [place] [address] 09-19-2023 08:00-0400 Body temperature 98.7 [degF] Dr. Jessi Olguin Work Phone: 1(406)763-323082 [place] [address] 09-19-2023 08:00-0400 Diastolic blood pressure 86 mm[Hg] Dr. Jessi Olguin Work Phone: 4(287)869-486282 [place] [address] 09-19-2023 08:00-0400 Heart rate 94 /min Dr. Jessi Olguin Work Phone: 5(393)185-517551 [place] [address] 09-19-2023 08:00-0400 Respiratory rate 18 /min Dr. Jessi Olguin Work Phone: 5(025)740-742682 [place] [address] 09-19-2023 08:00-0400 Systolic blood pressure 125 mm[Hg] Dr. Jessi Olguin Work Phone: [facility] [place] 09-02-2023 00:22-0400 Body weight 114.[address] Jessi Olguin Work Phone: 5(084)647-009182 [place] [address] 08-29-2023 08:06-0400 Body mass index (BMI) [Ratio] 31.4 kg/m2 Dr. Jessi Olguin Work Phone: [facility] [place] 08-29-2023 08:06-0400 Body temperature 97.5 [degF] Dr. Jessi Olguin Work Phone: [facility] [place] 08-29-2023 08:06-0400 Diastolic blood pressure 79 mm[Hg] Dr. Jessi Olguin Work Phone: [facility] [place] 08-29-2023 08:06-0400 Heart rate 74 /min Dr. Jessi Olguin Work Phone: [facility] [place] 08-29-2023 08:06-0400 Respiratory rate 20 /min Dr. Jessi Olguin Work Phone: [facility] [place] 08-29-2023 08:06-0400 Systolic blood pressure 108 mm[Hg] Dr. Jessi Olguin Work Phone: [facility] [place] 08-02-2023 00:27-0500 Body weight 114.[address] Jessi Olguin Work Phone: [facility] [place] 08-01-2023 08:00-0500 Body mass index (BMI) [Ratio] 31.4 kg/m2 Dr. Jessi Olguin Work Phone: [facility] [place] 08-01-2023 08:00-0500 Body temperature 96.5 [degF] Dr. Jessi Olguin Work Phone: [facility] [place] 08-01-2023 08:00-0500 Diastolic blood pressure 76 mm[Hg] Dr. Jessi Olguin Work Phone: [facility] [place] 08-01-2023 08:00-0500 Heart rate 86 /min Dr. Jessi Olguin Work Phone: [facility] [place] 08-01-2023 08:00-0500 Respiratory rate 20 /min Dr. Jessi Olguin Work Phone: [facility] [place] 08-01-2023 08:00-0500 Systolic blood pressure 141 mm[Hg] Dr. Jessi Olguin Work Phone: [facility] [place] 07-11-2023 08:10-0500 Body mass index (BMI) [Ratio] 31.4 kg/m2 Dr. Jessi Olguin Work Phone: [facility] [place] 07-11-2023 08:10-0500 Body temperature 96.9 [degF] Dr. Jessi Olguin Work Phone: [facility] [place] 07-11-2023 08:10-0500 Diastolic blood pressure 84 mm[Hg] Dr. Jessi Olguin Work Phone: [facility] [place] 07-11-2023 08:10-0500 Heart rate 103 /min Dr. Jessi Olguin Work Phone: [facility] [place] 07-11-2023 08:10-0500 Respiratory rate 16 /min Dr. Jessi Olguin Work Phone: [facility] [place] 07-11-2023 08:10-0500 Systolic blood pressure 121 mm[Hg] Dr. Jessi Olguin Work Phone: [facility] [place] 07-09-2023 08:28-0500 Body height 190.[address] Jessi Olguin Work Phone: [facility] [place] 07-09-2023 08:28-0500 Body mass index (BMI) [Ratio] 30.7 kg/m2 Dr. Jessi Olguin Work Phone: [facility] [place] 07-09-2023 08:28-0500 Body weight 111.[address] Jessi Olguin Work Phone: [facility] [place] 07-09-2023 08:28-0500 Diastolic blood pressure 67 mm[Hg] Dr. Jessi Olguin Work Phone: [facility] [place] 07-09-2023 08:28-0500 Heart rate 78 /min Dr. Jessi Olguin Work Phone: [facility] [place] 07-09-2023 08:28-0500 Respiratory rate 18 /min Dr. Jessi Olguin Work Phone: [facility] [place] 07-09-2023 08:28-0500 SaO2% (BldA) [Mass fraction] 95 % Dr. Jessi Olguin Work Phone: [facility] [place] 07-09-2023 08:28-0500 Systolic blood pressure 111 mm[Hg] Dr. Jessi Olguin Work Phone: [facility] [place] 07-04-2023 00:26-0500 Body weight 114.[address] Jessi Olguin Work Phone: [facility] [place] 06-27-2023 08:04-0500 Body mass index (BMI) [Ratio] 31.4 kg/m2 Dr. Jessi Olguin Work Phone: [facility] [place] 06-27-2023 08:04-0500 Body temperature 97.1 [degF] Dr. Jessi Olguin Work Phone: [facility] [place] 06-27-2023 08:04-0500 Diastolic blood pressure 64 mm[Hg] Dr. Jessi Olguin Work Phone: [facility] [place] 06-27-2023 08:04-0500 Heart rate 95 /min Dr. Jessi Olguin Work Phone: [facility] [place] 06-27-2023 08:04-0500 Respiratory rate 18 /min Dr. Jessi Olguin Work Phone: [facility] [place] 06-27-2023 08:04-0500 Systolic blood pressure 119 mm[Hg] Dr. Jessi Olguin Work Phone: [facility] [place] 06-03-2023 00:41-0500 Body weight 114.[address] Jessi Olguin Work Phone: [facility] [place] 05-30-2023 08:04-0500 Body mass index (BMI) [Ratio] 31.4 kg/m2 Dr. Jessi Olguin Work Phone: [facility] [place] 05-30-2023 08:04-0500 Body temperature 97.5 [degF] Dr. Jessi Olguin Work Phone: [facility] [place] 05-30-2023 08:04-0500 Diastolic blood pressure 78 mm[Hg] Dr. Jessi Olguin Work Phone: [facility] [place] 05-30-2023 08:04-0500 Heart rate 95 /min Dr. Jessi Olguin Work Phone: [facility] [place] 05-30-2023 08:04-0500 Respiratory rate 18 /min Dr. Jessi Olguin Work Phone: [facility] [place] 05-30-2023 08:04-0500 Systolic blood pressure 139 mm[Hg] Dr. Jessi Olguin Work Phone: [facility] [place] 05-16-2023 08:10-0500 Body mass index (BMI) [Ratio] 31.4 kg/m2 Dr. Jessi Olguin Work Phone: [facility] [place] 05-16-2023 08:10-0500 Body temperature 96.7 [degF] Dr. Jessi Olguin Work Phone: [facility] [place] 05-16-2023 08:10-0500 Diastolic blood pressure 77 mm[Hg] Dr. Jessi Olguin Work Phone: [facility] [place] 05-16-2023 08:10-0500 Heart rate 107 /min Dr. Jessi Olguin Work Phone: [facility] [place] 05-16-2023 08:10-0500 Respiratory rate 18 /min Dr. Jessi Olguin Work Phone: [facility] [place] 05-16-2023 08:10-0500 Systolic blood pressure 119 mm[Hg] Dr. Jessi Olguin Work Phone: [facility] [place] 05-09-2023 08:09-0500 Body mass index (BMI) [Ratio] 31.4 kg/m2 Dr. Jessi Olguin Work Phone: [facility] [place] 05-09-2023 08:09-0500 Body temperature 97.5 [degF] Dr. Jessi Olguin Work Phone: [facility] [place] 05-09-2023 08:09-0500 Diastolic blood pressure 63 mm[Hg] [facility]. Jessi Olguin Work Phone: [facility] [facility] [place] 05-09-2023 08:09-0500 Heart rate 81 /min Dr. Jessi Olguin Work Phone: [facility] [place] 05-09-2023 08:09-0500 Respiratory rate 18 /min Dr. Jessi Olguin Work Phone: [facility] [place] 05-09-2023 08:09-0500 Systolic blood pressure 133 mm[Hg] Dr. Jessi Olguin Work Phone: [facility] [place] 05-03-2023 00:35-0500 Body weight 114.[address] Jessi Olguin Work Phone: [facility] [place] 05-02-2023 08:05-0500 Body mass index (BMI) [Ratio] 31.4 kg/m2 Dr. Jessi Olguin Work Phone: [facility] [place] 05-02-2023 08:05-0500 Body temperature 97.4 [degF] Dr. Jessi Olguin Work Phone: [facility] [place] 05-02-2023 08:05-0500 Diastolic blood pressure 73 mm[Hg] Dr. Jessi Olguin Work Phone: [facility] [place] 05-02-2023 08:05-0500 Heart rate 97 /min Dr. Jessi Olguin Work Phone: [facility] [place] 05-02-2023 08:05-0500 Respiratory rate 18 /min Dr. Jessi Olguin Work Phone: [facility] [place] 05-02-2023 08:05-0500 Systolic blood pressure 124 mm[Hg] Dr. Jessi Olguin Work Phone: [facility] [place] 04-03-2023 00:18-0400 Body weight 114.[address] Jessi Olguin Work Phone: [facility] [place] 03-28-2023 08:17-0400 Body mass index (BMI) [Ratio] 31.4 kg/m2 Dr. Jessi Olguin Work Phone: [facility] [place] 03-28-2023 08:17-0400 Diastolic blood pressure 72 mm[Hg] Dr. Jessi Olguin Work Phone: [facility] [place] 03-28-2023 08:17-0400 Heart rate 84 /min Dr. Jessi Olguin Work Phone: [facility] [place] 03-28-2023 08:17-0400 Respiratory rate 18 /min Dr. Jessi Olguin Work Phone: [facility] [place] 03-28-2023 08:17-0400 Systolic blood pressure 123 mm[Hg] Dr. Jessi Olguin Work Phone: [facility] [place] 03-14-2023 08:41-0400 Body temperature 97.6 [degF] Dr. Jessi Olguin Work Phone: [facility] [place] 03-13-2023 10:04-0400 Body height 190.[address] Jessi Olguin Work Phone: [facility] [place] 03-13-2023 10:04-0400 Body mass index (BMI) [Ratio] 29.6 kg/m2 Dr. Jessi Olguin Work Phone: [facility] [place] 03-13-2023 10:04-0400 Body temperature 97.4 [degF] Dr. Jessi Olguin Work Phone: [facility] [place] 03-13-2023 10:04-0400 Body weight 107.[address] Jessi Olguin Work Phone: [facility] [place] 03-13-2023 10:04-0400 Diastolic blood pressure 66 mm[Hg] Dr. Jessi Olguin Work Phone: [facility] [place] 03-13-2023 10:04-0400 Heart rate 85 /min Dr. Jessi Olguin Work Phone: [facility] [place] 03-13-2023 10:04-0400 Respiratory rate 17 /min Dr. Jesis Olguin Work Phone: [facility] [place] 03-13-2023 10:04-0400 SaO2% (BldA) [Mass fraction] 98 % Dr. Jessi Olguin Work Phone: [facility] [place] 03-13-2023 10:04-0400 Systolic blood pressure 97 mm[Hg] Dr. Jessi Olguin Work Phone: [facility] [place] 03-03-2023 00:27-0400 Body weight 114.[address] Jessi Olguin Work Phone: [facility] [place] 02-28-2023 08:22-0400 Body mass index (BMI) [Ratio] 31.4 kg/m2 Dr. Jessi Olguin Work Phone: [facility] [place] 02-28-2023 08:22-0400 Body temperature 95.9 [degF] Dr. Jessi Olguin Work Phone: [facility] [place] 02-28-2023 08:22-0400 Diastolic blood pressure 77 mm[Hg] Dr. Jessi Olguin Work Phone: [facility] [place] 02-28-2023 08:22-0400 Heart rate 108 /min Dr. Jessi Olguin Work Phone: [facility] [place] 02-28-2023 08:22-0400 Respiratory rate 20 /min Dr. Jessi Olguin Work Phone: [facility] [place] 02-28-2023 08:22-0400 Systolic blood pressure 124 mm[Hg] Dr. Jessi Olguin Work Phone: [facility] [place] 02-14-2023 08:08-0400 Body height 190.[address] Jessi Olguin Work Phone: [facility] [place] 02-14-2023 08:08-0400 Body weight 114.[address] Jessi Olguin Work Phone: [facility] [place] 12-13-2022 09:22-0400 Body weight 114.[address] Jessi Olguin Work Phone: [facility] [place] 12-13-2022 09:22-0400 Diastolic blood pressure 56 mm[Hg] Dr. Jessi Olguin Work Phone: [facility] [place] 12-13-2022 09:22-0400 Heart rate 66 /min Dr. Jessi Olguin Work Phone: [facility] [place] 12-13-2022 09:22-0400 Respiratory rate 22 /min Dr. Jessi Olguin Work Phone: [facility] [place] 12-13-2022 09:22-0400 Systolic blood pressure 86 mm[Hg] Dr. Jessi Olguin Work Phone: [facility] [place] 07-10-2022 21:49-0500 Body height 190.5 cm [facility] 07-10-2022 21:49-0500 Body mass index (BMI) [Ratio] 32.3 kg/m2 [facility] [place] 07-10-2022 21:49-0500 Body temperature 97.8 [degF] [facility] 07-10-2022 21:49-0500 Body weight 117.48 kg [facility] 07-10-2022 21:49-0500 Diastolic blood pressure 76 mm[Hg] [facility] [place] 07-10-2022 21:49-0500 Heart rate 69 /min [facility] 07-10-2022 21:49-0500 Respiratory rate 16 /min [facility] 07-10-2022 21:49-0500 SaO2% (BldA) [Mass fraction] 100 % [facility] [place] 07-10-2022 21:49-0500 Systolic blood pressure 142 mm[Hg] [facility] [place] 01-22-2022 12:43-0400 Body height 190.[address] Jessi Olguin Work Phone: [facility] [place] Work Phone: 01-22-2022 12:43-0400 Body mass index (BMI) [Ratio] 32.3 kg/m2 Dr. Jessi Olguin Work Phone: [facility] [place] Work Phone: 01-22-2022 12:43-0400 Body temperature 97.2 [degF] Dr. Jessi Olguin Work Phone: [facility] [place] Work Phone: 01-22-2022 12:43-0400 Body weight 117.[address] Jessi Olguin Work Phone: [facility] [place] Work Phone: 01-22-2022 12:43-0400 Diastolic blood pressure 74 mm[Hg] Dr. Jessi Olguin Work Phone: [facility] [place] Work Phone: 01-22-2022 12:43-0400 Heart rate 67 /min Dr. Jessi Olguin Work Phone: [facility] [place] Work Phone: 01-22-2022 12:43-0400 Respiratory rate 16 /min Dr. Jessi Olguin Work Phone: [facility] [place] Work Phone: 01-22-2022 12:43-0400 SaO2% (BldA) [Mass fraction] 99 % Dr. Jessi Olguin Work Phone: [facility] [place] Work Phone: 01-22-2022 12:43-0400 Systolic blood pressure 121 mm[Hg] Dr. Jessi Olguin Work Phone: [facility] [place] Work Phone: 01-05-2022 14:04-0400 Body temperature 97.6 [degF] Dr. Jessi Olguin Work Phone: [facility] [place] Work Phone: 01-05-2022 14:04-0400 Diastolic blood pressure 60 mm[Hg] Dr. Jessi Olguin Work Phone: [facility] [place] Work Phone: 01-05-2022 14:04-0400 Heart rate 67 /min Dr. Jessi Olguin Work Phone: [facility] [place] Work Phone: 01-05-2022 14:04-0400 Respiratory rate 18 /min Dr. Jessi Olguin Work Phone: [facility] [place] Work Phone: 01-05-2022 14:04-0400 Systolic blood pressure 97 mm[Hg] Dr. Jessi Olguin Work Phone: [facility] [place] Work Phone: 01-05-2022 14:00-0400 SaO2% (BldA) [Mass fraction] 94 % Dr. Jessi Olguin Work Phone: [facility] [place] Work Phone: 01-05-2022 13:50-0400 Inhaled oxygen flow rate 2 L/min Dr. Jessi Olguin Work Phone: [facility] [place] Work Phone: 01-05-2022 09:56-0400 Body height 190.[address] Jessi Olguin Work Phone: [facility] [place] Work Phone: 01-05-2022 09:56-0400 Body mass index (BMI) [Ratio] 32.3 kg/m2 Dr. Jessi Olguin Work Phone: [facility] [place] Work Phone: 01-05-2022 09:56-0400 Body weight 117.[address] Jessi Olguin Work Phone: [facility] [place] Work Phone: 12-29-2021 13:48-0400 Body temperature 97.5 [degF] Dr. Jessi Olguin Work Phone: [facility] [place] Work Phone: 12-29-2021 13:48-0400 Diastolic blood pressure 72 mm[Hg] Dr. Jessi Olguin Work Phone: [facility] [place] Work Phone: 12-29-2021 13:48-0400 Heart rate 70 /min Dr. Jessi Ogluin Work Phone: [facility] [place] Work Phone: 12-29-2021 13:48-0400 Respiratory rate 17 /min Dr. Jessi Olguin Work Phone: [facility] [place] Work Phone: 12-29-2021 13:48-0400 SaO2% (BldA) [Mass fraction] 97 % Dr. Jessi Olguin Work Phone: [facility] [place] Work Phone: 12-29-2021 13:48-0400 Systolic blood pressure 117 mm[Hg] Dr. Jessi Olguin Work Phone: [facility] [place] Work Phone: 12-21-2021 08:41-0400 Body mass index (BMI) [Ratio] 33.2 kg/m2 Dr. Jessi Olguin Work Phone: [facility] [place] Work Phone: 12-21-2021 08:41-0400 Body temperature 97.5 [degF] Dr. Jessi Olguin Work Phone: [facility] [place] Work Phone: 12-21-2021 08:41-0400 Diastolic blood pressure 58 mm[Hg] Dr. Jessi Olguin Work Phone: [facility] [place] Work Phone: 12-21-2021 08:41-0400 Heart rate 85 /min Dr. Jessi Olguin Work Phone: [facility] [place] Work Phone: 12-21-2021 08:41-0400 Respiratory rate 16 /min Dr. Jessi Olguin Work Phone: [facility] [place] Work Phone: 12-21-2021 08:41-0400 Systolic blood pressure 106 mm[Hg] Dr. Jessi Olguin Work Phone: [facility] [place] Work Phone: 12-01-2021 00:41-0400 Body weight 120.[address] Jessi Olguin Work Phone: [facility] [place] Work Phone: 11-23-2021 10:28-0400 Body mass index (BMI) [Ratio] 33.2 kg/m2 Dr. Jessi Olguin Work Phone: [facility] [place] Work Phone: 11-23-2021 10:28-0400 Body temperature 98.3 [degF] Dr. Jessi Olguin Work Phone: [facility] [place] Work Phone: 11-23-2021 10:28-0400 Diastolic blood pressure 57 mm[Hg] Dr. Jessi Olguin Work Phone: [facility] [place] Work Phone: 11-23-2021 10:28-0400 Heart rate 98 /min Dr. Jessi Olguin Work Phone: [facility] [place] Work Phone: 11-23-2021 10:28-0400 Respiratory rate 20 /min Dr. Jessi Olguin Work Phone: [facility] [place] Work Phone: 11-23-2021 10:28-0400 Systolic blood pressure 102 mm[Hg] Dr. Jessi Olguin Work Phone: [facility] [place] Work Phone: 11-14-2021 09:22-0400 Body height 190.[address] Jessi Olguin Work Phone: [facility] [place] Work Phone: 11-14-2021 09:22-0400 Body mass index (BMI) [Ratio] 32.3 kg/m2 Dr. Jessi Olguin Work Phone: [facility] [place] Work Phone: 11-14-2021 09:22-0400 Body weight 117.[address] Jessi Olguin Work Phone: [facility] [place] Work Phone: 11-14-2021 09:22-0400 Diastolic blood pressure 60 mm[Hg] Dr. Jessi Olguin Work Phone: [facility] [place] Work Phone: 11-14-2021 09:22-0400 Heart rate 73 /min Dr. Jessi Olguin Work Phone: [facility] [place] Work Phone: 11-14-2021 09:22-0400 Respiratory rate 18 /min Dr. Jessi Olguin Work Phone: [facility] [place] Work Phone: 11-14-2021 09:22-0400 Systolic blood pressure 90 mm[Hg] Dr. Jessi Olguin Work Phone: [facility] [place] Work Phone: 11-01-2021 01:13-0400 Body weight 120.[address] Jessi Olguin Work Phone: [facility] [place] Work Phone: 10-26-2021 10:38-0400 Body mass index (BMI) [Ratio] 33.2 kg/m2 Dr. Jessi Olguin Work Phone: [facility] [place] Work Phone: 10-26-2021 10:38-0400 Body temperature 96.5 [degF] Dr. Jessi Olguin Work Phone: [facility] [place] Work Phone: 10-26-2021 10:38-0400 Diastolic blood pressure 57 mm[Hg] Dr. Jessi Olguin Work Phone: [facility] [place] Work Phone: 10-26-2021 10:38-0400 Heart rate 93 /min Dr. Jessi Olguin Work Phone: [facility] [place] Work Phone: 10-26-2021 10:38-0400 Respiratory rate 18 /min Dr. Jessi Olguin Work Phone: [facility] [place] Work Phone: 10-26-2021 10:38-0400 Systolic blood pressure 99 mm[Hg] Dr. Jessi Olguin Work Phone: [facility] [place] Work Phone: 10-05-2021 09:59-0400 Body height 190.[address] Jessi Olguin Work Phone: [facility] [place] Work Phone: 10-05-2021 09:59-0400 Body mass index (BMI) [Ratio] 33.2 kg/m2 Dr. Jessi Olguin Work Phone: [facility] [place] Work Phone: 10-05-2021 09:59-0400 Body temperature 97.1 [degF] Dr. Jessi Olguin Work Phone: [facility] [place] Work Phone: 10-05-2021 09:59-0400 Body weight 120.[address] Jessi Olguin Work Phone: [facility] [place] Work Phone: 10-05-2021 09:59-0400 Diastolic blood pressure 55 mm[Hg] Dr. Jessi Olguin Work Phone: [facility] [place] Work Phone: 10-05-2021 09:59-0400 Heart rate 78 /min Dr. Jessi Olguin Work Phone: [facility] [place] Work Phone: 10-05-2021 09:59-0400 Respiratory rate 18 /min Dr. Jessi Olguin Work Phone: [facility] [place] Work Phone: 10-05-2021 09:59-0400 Systolic blood pressure 102 mm[Hg] Dr. Jessi Olguin Work Phone: [facility] [place] Work Phone: 07-25-2021 08:27-0500 Body mass index (BMI) [Ratio] 32.5 kg/m2 Dr. Jessi Olguin Work Phone: [facility] [place] Work Phone: 07-25-2021 08:27-0500 Body temperature 97.2 [degF] Dr. Jessi Olguin Work Phone: [facility] [place] Work Phone: 07-25-2021 08:27-0500 Body weight 121.[address] Jessi Olguin Work Phone: [facility] [place] Work Phone: 07-25-2021 08:27-0500 Diastolic blood pressure 61 mm[Hg] Dr. Jessi Olguin Work Phone: [facility] [place] Work Phone: 07-25-2021 08:27-0500 Heart rate 88 /min Dr. Jessi Olguin Work Phone: [facility] [place] Work Phone: 07-25-2021 08:27-0500 Respiratory rate 16 /min Dr. Jessi Olguin Work Phone: [facility] [place] Work Phone: 07-25-2021 08:27-0500 SaO2% (BldA) [Mass fraction] 95 % Dr. Jessi Olguin Work Phone: [facility] [place] Work Phone: 07-25-2021 08:27-0500 Systolic blood pressure 95 mm[Hg] Dr. Jessi Olguin Work Phone: [facility] [place] Work Phone: Encounters Encounter Date Encounter Type Care Provider Facility Start: 11-10-2024 End: 11-10-2024 Patient encounter procedure PREDATORY ANIMAL EXTERMINATOR Michelle Santos [facility] Work Phone: Start: 11-10-2024 End: 11-10-[address] Jessi Olguin MD Work Phone: [facility] Work Phone: Start: 10-14-2024 End: 10-14-[address] Jessi Olguin MD Work Phone: [facility] [place] Work Phone: Start: 10-14-2024 End: 10-14-[address] Jessi Olguin MD -Ultrasound [facility] Work Phone: Start: 10-14-2024 End: 10-14-2024 Dr. Jessi Olguin MD -Ultrasound [facility] Work Phone: Start: 10-14-2024 End: 10-14-2024 ambulatory Jessi Olguin Facility:[facility] [place] Start: 09-21-2024 End: 09-21-2024 Dr. Gary Ashby MD -Emergency Departmen t Work Phone: Start: 09-21-2024 End: 09-21-2024 Emergency department patient visit Dr. Gary Ashby MD -Emergency Department Work Phone: Start: 09-04-2024 End: 09-04-[address] Jessi Olguin MD Work Phone: [facility] [place] Work Phone: Start: 09-04-2024 End: 09-04-[address] Jessi Olguin MD -Laboratory, [facility] Start: 09-04-2024 End: 09-04-2024 Dr. Jessi Olguin MD -Laboratory [facility] Start: 09-04-2024 End: 09-04-2024 ambulatory [facility] Facility:[facility] [place] Start: 09-03-2024 Non-patient / Non-visit Dr. Wood Braxton MD -[facility] Work Phone: Start: 09-03-2024 Dr. Wood Braxton MD -[facility] Work Phone: Start: 09-02-2024 Non-patient / Non-visit Dr. Wood Braxton MD -[facility] Work Phone: Start: 09-02-2024 Dr. Wood Braxton MD -[facility] Work Phone: Start: 09-01-2024 ambulatory Shonda Gaston [facility] Start: 09-01-2024 End: 09-03-2024 Evaluation and management of inpatient Dr. Shonda Gaston MD -Progressive Care Unit Work Phone: Start: 09-01-2024 End: 09-03-2024 Dr. Wood Braxton MD -Progressive Care Un it Work Phone: Start: 09-01-2024 End: 09-01-2024 Patient encounter procedure Sanaz Angel [place] -[facility] Work Phone: Start: 09-01-2024 End: 09-01-2024 Sanaz Angel [place] -[facility] Work Phone: Start: 09-01-2024 End: 09-01-2024 ambulatory Jessi Olguin Facility:[facility] Start: 08-03-2024 End: 08-03-2024 Patient encounter procedure Mey Rice PREDATORY ANIMAL EXTERMINATOR-C -[facility] Work Phone: Start: 08-03-2024 End: 08-03-2024 Mey Rice PREDATORY ANIMAL EXTERMINATOR-C -[facility] Work Phone: Start: 08-03-2024 End: 08-03-2024 ambulatory Jessi Olguin Facility:[facility] Start: 07-17-2024 ambulatory Ezequiel Barrios ty:[facility] [place] Start: 07-17-2024 Registered Referred Ezequiel [facility] Start: 07-17-2024 [facility]equiel [facility] Start: 07-10-2024 ambulatory Jessi Olguin Facility:[facility] Start: 07-10-2024 End: 07-10-2024 Patient encounter procedure Danni Davis PREDATORY ANIMAL EXTERMINATOR-C -Laboratory Work Phone: Start: 07-10-2024 End: 07-10-2024 Danni Davis PREDATORY ANIMAL EXTERMINATOR-C -Laboratory Work Phone: Start: 07-10-2024 End: 07-10-2024 ambulatory Danni Davis NP Facility:[facility] [place] Start: 07-07-2024 End: 07-07-2024 Dhiraj Carlton DO -Emergency Departmen t Work Phone: Start: 07-07-2024 End: 07-07-2024 Emergency department patient visit Dhiraj Andes DO -Emergency Department Work Phone: Start: 06-27-2024 End: 07-01-2024 Evaluation and management of inpatient DR SEDRICK ALEXANDER MD [facility] Start: 06-27-2024 ambulatory Jessi Olguin Facility:[facility] Start: 06-27-2024 Non-patient / Non-visit Dr. Gracia Chavez MD -[facility] Start: 06-27-2024 Dr. Gracia Chavez MD [facility] Start: 06-27-2024 Non-patient / Non-visit Dr. [facility]i [facility] Work Phone: Start: 06-27-2024 Dr. Jessi [facility] Work Phone: Start: 06-26-2024 Non-patient / Non-visit Dr. Gracia Chavez MD [facility] Start: 06-26-2024 Dr. Gracia Chavez MD [facility] Start: 06-26-2024 Non-patient / Non-visit Dr. Jessi [facility] Work Phone: Start: 06-26-2024 Dr. Jessi [facility] Work Phone: Start: 06-25-2024 ambulatory [facility] Facility:[facility] Start: 06-25-2024 Non-patient / Non-visit Dr. Gracia Chavez MD [facility] Start: 06-25-2024 Dr. Gracia Chavez MD [facility] Start: 06-25-2024 Non-patient / Non-visit Dr. Jessi Kaur DO [facility] Work Phone: Start: 06-25-2024 Dr. [facility]i [facility] Work Phone: Start: 06-24-2024 Non-patient / Non-visit Dr. Jessi [facility] Work Phone: Start: 06-24-2024 Dr. Jessi [facility] Work Phone: Start: 06-24-2024 [facility] Facility:[facility] Start: 06-24-2024 End: 06-27-2024 Evaluation and management of inpatient Dr. Jessi Kaur DO -Intensive Care Unit Work Phone: Start: 06-24-2024 End: 06-27-2024 Dr. Jessi Kaur DO -Intensive Care Unit Work Phone: Start: 05-25-2024 End: 05-25-2024 [facility] Work Phone: Start: 03-22-2024 End: 03-22-2024 Emergency department patient visit Jessi Olguin Facility:[facility] [place] Start: 02-25-2024 End: 02-25-2024 ambulatory Jessi Olguin Facility:[facility] Start: 01-09-2024 ambulatory Jessi Olguin Facility:[facility] Start: 12-23-2023 End: 12-23-2023 ambulatory Jessi Olguin Facility:[facility] [place] Start: 11-28-2023 End: 11-28-2023 ambulatory Alejandro Talbot Facility:[facility] [place] Start: 09-19-2023 End: 10-01-[address] Jessi Olgiun Work Phone: [facility] [place] Work Phone: Start: 09-19-2023 End: 10-01-[address] Jessi Olguin Work Phone: [facility] Work Phone: Start: 08-29-2023 End: 09-01-[address] Jessi Olguin Work Phone: [facility] [place] Work Phone: Start: 08-29-2023 End: 09-01-[address] Jessi Olguin Work Phone: [facility] Work Phone: Start: 08-01-2023 End: 08-01-[address] Jessi Olguin Work Phone: [facility] [place] Work Phone: Start: 08-01-2023 End: 08-01-[address] Jessi Olguin Work Phone: [facility] Work Phone: Start: 07-09-2023 End: 07-09-[address] Jessi Olguin Work Phone: [facility] Work Phone: Start: 06-27-2023 End: 07-03-[address] Jessi Olguin Work Phone: [facility] Work Phone: Start: 06-27-2023 End: 07-03-[address] [facility] Work Phone: Start: 05-30-2023 End: 06-02-[address] Jessi Olguin Work Phone: [facility] Work Phone: Start: 05-30-2023 End: 06-02-[address] Jessi Olguin Work Phone: [facility] Work Phone: Start: 05-16-[address] Jessi Olguin Work Phone: [facility] Work Phone: Start: 05-13-2023 End: 05-13-[address] Jessi Olguin Work Phone: [facility] Work Phone: Start: 05-13-2023 End: 05-13-[address] Jessi Olguin Work Phone: [facility] Work Phone: Start: 05-09-2023 End: 05-09-[address] Jessi Olguin Work Phone: [facility] Work Phone: Start: 05-09-2023 End: 05-09-[address] Jessi Olguin Work Phone: [facility] Start: 05-09-[address] [facility] Phone[facility] Work Phone: Start: 05-02-2023 End: 05-02-[address] Jessi Olguin Work Phone: [facility] Work Phone: Start: 05-02-2023 End: 05-02-[address] Jess[facility] Work Phone: Start: 03-28-2023 End: 04-02-[address] Jessi Olguin Work Phone: [facility] Work Phone: Start: 03-28-2023 End: 04-02-[address] Jessi Olguin Work Phone: [facility] Work Phone: Start: 03-13-2023 End: 03-13-[address] [facility] Work Phone: Start: 02-28-2023 End: 03-02-[address] Jesis Olguin Work Phone: [facility] Work Phone: Start: 02-28-2023 End: 03-02-[address] Jessi Olguin Work Phone: [facility] Work Phone: Start: 12-13-2022 End: 12-13-[address] Jessi Olguin Work Phone: [facility] Work Phone: Start: 07-13-2022 End: 07-13-2022 ambulatory [facility] Work Phone: Start: 07-13-2022 End: 07-13-2022 Patient encounter procedure [facility] Start: 07-10-2022 End: 07-11-2022 Emergency department patient visit [facility] Start: 03-30-2022 End: 03-30-[address] Jessi Olguin Work Phone: [facility] Work Phone: Start: 03-30-2022 End: 03-30-[address] Jessi Olguin Work Phone: [facility] Start: 02-02-2022 End: 02-02-[address] Jessi Olguin Work Phone: [facility] Start: 01-22-2022 End: 01-22-[address] Jessi Olguin Work Phone: [facility] Start: 01-19-2022 End: 01-19-[address] Jessi Olguin Work Phone: [facility] Start: 01-12-2022 End: 01-12-[address] Jessi Olguin Work Phone: [facility] Start: 01-05-2022 Non-patient / Non-visit Dr. Jessi Olguin Work Phone: [facility] Start: 01-05-2022 End: 01-05-2022 Admission to same day surgery center Dr. Jessi Olguin Work Phone: [facility] Start: 12-29-2021 End: 12-29-[address] Jessi Olguin Work Phone: [facility] Start: 12-21-2021 Non-patient / Non-visit Dr. Jessi Olguin Work Phone: [facility] Start: 12-21-2021 End: 12-21-[address] Jessi Olguin Work Phone: [facility] Start: 12-14-2021 Non-patient / Non-visit Dr. Jessi Olguin Work Phone: [facility] Start: 11-29-2021 End: 11-29-[address] [facility] Start: 11-23-2021 Non-patient / Non-visit Dr. Jessi Olguin Work Phone: [facility] Start: 11-23-2021 End: 11-30-[address] Jessi Olguin Work Phone: [facility] Start: 11-16-2021 Non-patient / Non-visit Dr. Jessi Olguin Work Phone: [facility] Start: 11-14-2021 End: 11-14-[address] Jessi Olguin Work Phone: [facility] Start: 11-09-2021 Non-patient / Non-visit Dr. Jessi Olguin Work Phone: [facility] Start: 11-02-2021 Non-patient / Non-visit Dr. Jessi Olguin Work Phone: [facility] Start: 10-26-2021 Non-patient / Non-visit Dr. Jessi Olguin Work Phone: [facility] Start: 10-26-2021 End: 10-31-[address] Jessi Olguin Work Phone: [facility] Start: 10-12-2021 Non-patient / Non-visit Dr. Jessi Olguin Work Phone: [facility] Start: 10-05-2021 Non-patient / Non-visit Dr. Jessi Olguin Work Phone: [facility] Start: 10-05-[address] [facility] Start: 10-03-2021 End: 10-03-[address] Jessi Olguin Work Phone: [facility] Start: 08-01-2021 End: 08-01-[address] Jessi Olguin Work Phone: [facility]-Pulmonary Services/Neurology Start: 07-25-2021 End: 07-25-[address] Jess[facility]gu[facility] Phone[facility] Start: 07-04-2021 End: 07-04-[address] Jessi Olguin Work Phone: [facility] Start: 07-03-2021 End: 07-03-[address] Jessi Olguin Work Phone: [facility] Start: 06-10-2018 End: 06-11-2018 Patient encounter procedure SAGAR GARCIA Facility:[facility] Start: 05-16-2018 End: 05-17-2018 Patient encounter procedure SAGAR GARCIA Facility:[facility] Procedures Date Procedure Procedure Detail Performing Clinician Start: 10-14-[address] Jessi Olguin MD Work Phone: Start: 09-21-2024 Urine microscopy: re d cells Dr. Jessi Olguin MD Work Phone: Start: 09-21-2024 Urnls dip stick/tabl et reagent auto microscopy Dr. Jessi Olguin MD Work Phone: Start: 09-21-2024 Blood count smear mc rscp w/mnl difrntl wbc count Dr. Jessi Olguin MD Work Phone: Start: 09-21-2024 Mean corpuscular hemoglobin concentration determination Dr. Jessi Olguin MD Work Phone: Start: 09-21-2024 Nucleated red blood cell count procedure Dr. Jessi Olguin MD Work Phone: Start: 09-21-2024 Platelet mean volume determination Dr. Jessi Olguin MD Work Phone: Start: 09-21-2024 [address] se measurement Dr. Jessi Olguin MD Work Phone: Start: 09-04-2024 Blood count smear mc rscp w/mnl difrntl wbc count Dr. Jessi Olguin MD Work Phone: Start: 09-04-2024 Mean corpuscular hemoglobin concentration determination Dr. Jessi Olguin MD Work Phone: Start: 09-04-2024 Nucleated red blood cell count procedure Dr. Jessi Olguin MD Work Phone: Start: 09-04-2024 Platelet mean volume determination Dr. Jessi Olguin MD Work Phone: Start: 09-03-2024 Blood count smear mc rscp w/mnl difrntl wbc count Dr. Jessi Olguin MD Work Phone: Start: 09-03-[address] Jessi Olguin MD Work Phone: Start: 09-03-2024 Mean corpuscular hemoglobin concentration determination Dr. Jessi Olguin MD Work Phone: Start: 09-03-2024 Nucleated red blood cell count procedure Dr. Jessi Olguin MD Work Phone: Start: 09-03-2024 Platelet mean volume determination Dr. Jessi Olguin MD Work Phone: Start: 09-03-2024 Serum inorganic phos phate measurement Dr. Jessi Olguin MD Work Phone: Start: 09-02-2024 Legionella pneumophi la antigen assay Dr. Jessi Olguin MD Work Phone: Start: 09-02-2024 End: 09-02-2024 Streptococcus pneumoniae antigen assay Dr. Jessi Olguin MD Work Phone: Start: 09-02-2024 CT of chest without contrast Dr. Jessi Olguin MD Work Phone: Start: 09-01-2024 Plain X-ray abdomen Dr. Jessi Olguin MD Work Phone: Start: 09-01-2024 X-ray of chest, PA a nd lateral views Dr. Jessi Olguin MD Work Phone: Start: 09-01-2024 [address] lipa se measurement Dr. Jessi Olguin MD Work Phone: Start: 09-01-[address] Jessi Olguin MD Work Phone: Start: 07-10-[address] Jessi Olguin MD Work Phone: Start: 07-07-2024 Calculation of international normalized ratio Dr. Jessi Olguin MD Work Phone: Start: 07-07-2024 CT of thorax, abdome n and pelvis with contrast Dr. Jessi Olguin MD Work Phone: Start: 07-07-2024 Anion gap measurement Catracho Olguin MD Work Phone: Start: 07-07-2024 Blood count smear mc rscp w/mnl difrntl wbc count Dr. Jessi Olguin MD Work Phone: Start: 07-07-2024 BUN/Creatinine ratio Dr Kris Olguin MD Work Phone: Start: 07-07-[address] Jessi Olguin MD Work Phone: Start: 07-07-2024 Mean corpuscular hemoglobin concentration determination Dr. Jessi Olguin MD Work Phone: Start: 07-07-2024 Measurement of renal function Dr. Jessi Olguin MD Work Phone: Start: 07-07-2024 Nucleated red blood cell count procedure Dr. Jessi Olguin MD Work Phone: Start: 07-07-2024 Platelet mean volume determination Dr. Jessi Olguin MD Work Phone: Start: 07-07-2024 [address] se measurement Dr. Jessi Olguin MD Work Phone: Start: 06-30-2024 Cardiac defibrillato r in situ (finding) DR SEDRICK ALEXANDER MD Comment on above: 06-30-2024- Dr. Huong hein implanting, Dr. Amelie lópez- BS Vigilant ICD- D233, SN: [id number]. RA- 7841, SN: [id number]. RV- 0676, SN: [id number] Start: 06-27-2024 Plain chest X-ray Dr. Camryn Olguin MD Work Phone: Start: 06-27-2024 Albumin/Globulin ratio Dr. Jessi Olguin MD Work Phone: Start: 06-27-2024 Anion gap measurement Catracho Olguin MD Work Phone: Start: 06-27-2024 Blood count smear mc rscp w/mnl difrntl wbc count Dr. Jessi Olguin MD Work Phone: Start: 06-27-2024 BUN/Creatinine ratio Dr Kris Olguin MD Work Phone: Start: 06-27-2024 Calculation of international normalized ratio Dr. Jessi Olguin MD Work Phone: Start: 06-27-[address] Jessi Olguin MD Work Phone: Start: 06-27-2024 Mean corpuscular hemoglobin concentration determination Dr. Jessi Olguin MD Work Phone: Start: 06-27-2024 Measurement of renal function Dr. Jessi Olguin MD Work Phone: Start: 06-27-2024 Nucleated red blood cell count procedure Dr. Jessi Olguin MD Work Phone: Start: 06-27-2024 Carbon dioxide measurement, partial pressure Dr. Jessi Olguin MD Work Phone: Start: 06-27-2024 Gases blood o2 satur ation only direct shweta Dr. Jessi Olguin MD Work Phone: Start: 06-27-2024 Measurement of parti al pressure of oxygen in blood Dr. Jessi Olguin MD Work Phone: Start: 06-27-[address] Jessi Olguin MD Work Phone: Start: 06-26-[address] Jessi Olguin MD Work Phone: Start: 06-25-2024 History of placement of stent for coronary artery disease History of coronary artery stent placement Sanaz VILLAR Comment on above: 4.0 x 15 mm NIDHI FRO NTIER KESHIA to ostial RCA 06/25/2024 Start: 06-25-[address] Jessi heard MD Work Phone: Start: 06-25-2024 Platelet mean volume determination Dr. Jessi Olguin MD Work Phone: Start: 06-24-[address] Oscar Olguin MD Work Phone: Start: 06-24-[address] Jessi Olguin MD Work Phone: Start: 06-24-2024 Legionella pneumophi la antigen assay Dr. Jessi Olguin MD Work Phone: Start: 06-24-2024 SARS-CoV-2, Influenz a & RSV (PCR) Dr. Jessi Olguin MD Work Phone: Start: 06-24-2024 Streptococcus pneumo niae antigen assay Dr. Jessi Olguin MD Work Phone: Start: 06-24-2024 Dr. Jessi heard MD Work Phone: Start: 06-24-2024 Plain chest X-ray Dr. Camryn Olguin MD Work Phone: Start: 06-24-[address] SEDRICK ALEXANDER MD Start: 05-25-2024 CT of lumbar spine Dr. Jessi Olguin MD Work Phone: Start: 05-13-2023 Plain chest X-ray Dr. Camryn Olguin Work Phone: Start: 07-10-2022 X-ray of both feet Start: 01-05-2022 Excision of lymph node Dr. Jessi Olguin Work Phone: H/O: surgery H/O excision of epidermal inclusion cyst Dr. Jessi Olguin Work Phone: Comment on above: Patient 1 month stat us post excision of large epidermal inclusion cyst (pathology confirmed). His wound is remains well-healing and is nearly complete. Patient's spouse has been cleansing the wound lightly with sterile water, but has refrained from actually scrubbing the wound. She is encouraged to begin doing this to remove any remaining exudative material and scabs. I have encouraged her to continue application of triple antibiotic ointment nightly, but otherwise leave the wound uncovered. Given the progress to date, I do not find indication for further clinical follow-up at this time. Hernia repair DR SEDRICK Hayden Investigation of transfusion reaction Dr. Jessi Olguin Work Phone: Microbial culture, routine D adeel Olguin Work Phone: Plan of Treatment Date Care Activity Detail Author Start: 09-21-2024 [facility] Start: 09-03-2024 Patient discharge [facility] Start: 09-02-2024 [facility] Start: 09-02-2024 Referral to service [facility] Start: 09-01-2024 Assessment of risk o f venous thromboembolism [facility] Start: 09-01-2024 Care regimes management [facility] Start: 09-01-2024 Fall prevention [facility] Start: 09-01-2024 Inhalation therapy procedure [facility] Start: 09-01-2024 Insertion of cathete r into peripheral vein [facility] Start: 09-01-2024 Introduction of urin daphne catheter [facility] Start: 09-01-2024 Measuring intake and output [facility] Start: 09-01-2024 Notification of physician [facility] Start: 09-01-2024 Oxygen therapy [facility] Start: 09-01-2024 Providing care accor ding to standard [facility] Start: 09-01-2024 Provision of activit y privileges [facility] Start: 09-01-2024 Referral to occupati onal therapist [facility] Start: 09-01-2024 Referral to service [facility] Start: 09-01-2024 End: 09-01-2024 [facility] Start: 09-01-2024 Following clinical p athway protocol [facility] Start: 09-01-2024 Legionella pneumophi la Ag [Presence] in Urine [facility] Start: 09-01-2024 Respiratory pathogen s DNA and RNA panel - Respiratory specimen by ZOE with probe detection [facility] Start: 09-01-2024 Streptococcus pneumo niae antigen assay [facility] Start: 09-01-2024 Verification routine [facility] Start: 09-01-2024 Plain X-ray abdomen Abdomen Si ngle View (Portable) [facility] Start: 09-01-2024 Admission procedure [facility] Start: 09-01-2024 Hospital admission, emergency, from emergency room, medical nature [facility] Start: 09-01-2024 [facility] Start: 09-01-2024 [facility] Start: 09-01-2024 Consultation [facility] Start: 09-01-2024 Patient referral to dietitian [facility] Start: 07-07-2024 [facility] Start: 06-27-2024 Patient discharge [facility] Start: 06-25-2024 Patient referral [facility] Work Phone: Start: 06-25-2024 Patient education [facility] Start: 06-25-2024 Provision of activit y privileges [facility] Start: 06-25-2024 Pulse taking [facility] Start: 06-25-2024 Wound care [facility] Start: 06-25-2024 Cardiac monitoring [facility] Start: 06-25-2024 Cardiac rehabilitati on - phase 1 [facility] Start: 06-25-2024 Cardiac rehabilitati on - phase 2 [facility] Start: 06-25-2024 End: 06-25-2024 Notification of physician [facility] Start: 06-25-2024 Oxygen therapy [facility] Start: 06-25-2024 Patient discharge [facility] Start: 06-25-2024 Systemic arterial pr essure monitoring [facility] Start: 06-25-2024 End: 06-25-2024 Taking patient vital signs [facility] Start: 06-25-2024 Vascular disease ris k assessment [facility] Start: 06-25-2024 Vital signs measurements [facility] Start: 06-25-2024 End: 06-25-2024 [facility] Start: 06-24-2024 End: 06-25-2024 [facility] Start: 06-24-2024 Referral to brazing machine setter [facility] Start: 06-24-2024 Wound care [facility] Start: 06-24-2024 Care regimes management [facility] Start: 06-24-2024 Notification of physician [facility] Start: 06-24-2024 Consultation for treatment [facility] Start: 06-24-2024 Following clinical p athway protocol [facility] Start: 06-24-2024 Following clinical p athway protocol [facility] Start: 06-24-2024 Assessment of risk o f venous thromboembolism [facility] Start: 06-24-2024 Catheterization of vein [facility] Start: 06-24-2024 Continuous pulse oximetry [facility] Start: 06-24-2024 Insertion of cathete r into peripheral vein [facility] Start: 06-24-2024 Measuring intake and output [facility] Start: 06-24-2024 Notification of physician [facility] Start: 06-24-2024 Patient referral to dietitian [facility] Start: 06-24-2024 Providing care accor ding to standard [facility] Start: 06-24-2024 Referral to occupati onal therapist [facility] Start: 06-24-2024 Referral to service [facility] Start: 06-24-2024 Speech therapy assessment [facility] Start: 06-24-2024 Vital signs measurements [facility] Start: 06-24-2024 Admission procedure [facility] Start: 05-25-2024 [facility] Start: 01-05-2022 Patient discharge [facility] Work Phone: Start: 01-05-2022 Anes integ musc & nr v head neck&posterior trunk ANESTH HEAD/NECK/PTRUNK [facility] Work Phone: Start: 01-05-2022 Exc b9 lesion mrgn x cp sk tg t/a/l >4.0 cm EXC TR-EXT B9+CLAY >4.0 CM [facility] Work Phone: Start: 01-05-2022 Repair intermediate s/a/t/e 7.6-12.5 cm INTMD RPR S/TR/EXT 7.6-12.5 [facility] Work Phone: Start: 11-29-2021 [facility] Work Phone: CT Chest WO contrast [facility] Lipid 1996 panel - S bianca or Plasma [facility] Magnesium measurement [facility] Microbial culture, routine Wound Culture [facility] Work Phone: Patient Education [facility] Work Phone: Patient referral [facility] Work Phone: Troponin T.cardiac [Mass/volume] in Serum or Plasma by High sensitivity method [facility] Immunizations Immunization Date Immunization Notes Care Provider Fa [facility] 06-26-2024 influenza virus vaccine, unspecified formulation DR SEDRICK ALEXANDER MD [facility] 06-26-2024 influenza, high dose seasonal, preservative-free Dr. Jessi Olguin MD Work Phone: [facility] 03-13-2023 influenza virus vaccine, unspecified formulation DR SEDRICK ALEXANDER MD [facility] 03-13-2023 influenza, injectabl e, quadrivalent, preservative free Dr. Jessi Olguin Work Phone: [facility] 01-27-2021 SARS-CoV-2 mRNA (tozinameran) vaccine DR SEDRICK ALEXANDER MD [facility] 01-06-2021 SARS-CoV-2 mRNA (tozinameran) vaccine DR SEDRICK ALEXANDER MD [facility] 02-02-[address] Jessi Olguin Work Phone: [facility] 01-11-2020 tetanus toxoid, redu barry diphtheria toxoid, and acellular pertussis vaccine, adsorbed DR SEDRICK ALEXANDER MD [facility] 03-13-2018 influenza virus vaccine, unspecified formulation DR SEDRICK ALEXANDER MD [facility] 04-08-2017 influenza virus vaccine, unspecified formulation DR SEDRICK ALEXANDER MD [facility] 03-30-2016 influenza virus vaccine, unspecified formulation DR SEDRICK ALEXANDER MD [facility] 05-17-2014 influenza virus vaccine, unspecified formulation DR SEDRICK ALEXANDER MD [facility] 03-20-2013 influenza virus vaccine, unspecified formulation DR SEDRICK ALEXANDER MD [facility] 03-19-2012 influenza virus vaccine, unspecified formulation DR SEDRICK ALEXANDER MD [facility] Payers Date Payer Category Payer Private Health Insurance [id number] 2024 Medicare [id number] 2023 Self-pay [id number] 2018 Medicare [id number] 2018 Private Health Insurance [id number] Private Health Insurance [id number] 2011 Medicare [id number] 1950 Unknown [id number] 2.16.8 40.1.591347.3.579.2.627 1950 Unknown [id number] 2.16.8 40.1.837372.3.579.2.627 1950 Unknown [id number] 2.16.8 40.1.872273.3.579.2.627 Unknown [id number] 2.16.8 40.1.910967.3.579.2.462 Unknown [id number] 2.16.8 40.1.294684.3.579.2.462 Unknown [id number] 2.16.8 40.1.428871.3.579.2.462 Unknown [id number] 2.16.8 40.1.599136.3.579.2.462 Unknown [id number] 2.16.8 40.1.269209.3.579.2.462 Unknown [id number] 2.16.8 40.1.472281.3.579.2.462 Unknown [id number] 2.16.8 40.1.925371.3.579.2.462 Unknown [id number] 2.16.8 40.1.852971.3.579.2.462 Unknown [id number] 2.16.8 40.1.047080.3.579.2.462 Unknown [id number] 2.16.8 40.1.949433.3.579.2.462 Unknown [id number] 2.16.8 40.1.849979.3.579.2.462 Unknown [id number] 2.16.8 40.1.733011.3.579.2.462 Unknown [id number] 2.16.8 40.1.969706.3.579.2.462 Unknown [id number] 2.16.8 40.1.979857.3.579.2.462 Unknown [id number] 2.16.8 40.1.615606.3.579.2.462 Unknown [id number] 2.16.8 40.1.108078.3.579.2.462 Unknown [id number] 2.16.8 40.1.765491.3.579.2.462 Unknown [id number] 2.16.8 40.1.442726.3.579.2.462 Unknown [id number] 2.16.8 40.1.005339.3.579.2.462 Unknown [id number] 2.16.8 40.1.687701.3.579.2.462 Unknown [id number] 2.16.8 40.1.484144.3.579.2.462 Unknown [id number] 2.16.8 40.1.843572.3.579.2.462 Unknown [id number] 2.16.8 40.1.039521.3.579.2.462 Unknown [id number] 2.16.8 40.1.052339.3.579.2.462 Unknown [id number] 2.16.8 40.1.903112.3.579.2.462 Unknown [id number] 2.16.8 40.1.875816.3.579.2.462 Unknown [id number] 2.16.8 40.1.830471.3.579.2.462 Unknown [id number] 2.16.8 40.1.845064.3.579.2.462 Social History Date Type Detail Facility Start: 10-05-2021 End: 03-13-2023 Tobacco smoking status NHIS Unknown if ever smoked [facility] Start: 08-14-2020 None [facility] Start: 08-14-2020 Spouse/ Signif icant Other [facility] Start: 02-13-2020 Cigarettes [facility] Start: 1950 Sex Assigned At Male [facility] Start: 06-27-2024 Tobacco smoking status Heavy t obacco smoker (finding) [facility] Start: 09-01-2024 End: 09-21-2024 Tobacco smoking status Ex-smoker (finding) [facility] Sexual Orientation [facility] Start: 04-27-2019 End: 09-10-2024 Sex Male (finding) [facility] Medical Equipment Procedure Code Equipment Code Equipment Origin al Text Equipment Identifier Dates Kyphoplasty SAUD KYPHO AUTOPLEX FDA Start: 10-31-2018 Kyphoplasty SAUD KYPHO AUTOPLEX FDA Start: 10-31-2018 Kyphoplasty SAUD KYPHO AUTOPLEX FDA Start: 10-31-2018 Kyphoplasty SAUD KYPHO AUTOPLEX FDA Start: 10-31-2018 Kyphoplasty SAUD KYPHO AUTOPLEX FDA Start: 10-31-2018 Kyphoplasty SAUD KYPHO AUTOPLEX FDA Start: 10-31-2018 Kyphoplasty SAUD KYPHO AUTOPLEX FDA Start: 10-31-2018 Kyphoplasty SAUD KYPHO AUTOPLEX FDA Start: 10-31-2018 Kyphoplasty SAUD KYPHO AUTOPLEX FDA Start: 10-31-2018 Kyphoplasty SAUD KYPHO AUTOPLEX FDA Start: 10-31-2018 Kyphoplasty SAUD KYPHO AUTOPLEX FDA Start: 10-31-2018 Kyphoplasty SAUD KYPHO AUTOPLEX FDA Start: 10-31-2018 Kyphoplasty SAUD KYPHO AUTOPLEX FDA Start: 10-31-2018 Kyphoplasty SAUD KYPHO AUTOPLEX FDA Start: 10-31-2018 Kyphoplasty SAUD KYPHO AUTOPLEX FDA Start: 10-31-2018 Kyphoplasty SAUD KYPHO AUTOPLEX FDA Start: 10-31-2018 Kyphoplasty SAUD KYPHO AUTOPLEX FDA Start: 10-31-2018 Kyphoplasty SAUD KYPHO AUTOPLEX FDA Start: 10-31-2018 Kyphoplasty FDA Start: 10-31-2018 Kyphoplasty SAUD KYPHO AUTOPLEX FDA Start: 10-31-2018 [id number] FDA Start: 06-25-2024 Blood Sugar Diagnostic (True Metrix Glucose Test Strip) strip Start: 11-10-2024 Goals Date Patient Goal Desired Activity /State Functional Status Date Assessment Result Facility 09-03-2024 Functional status Ambulates;Bathroom Priv ilege [facility] Work Phone: 07-01-2024 Functional Status Mod A [facility] 07-01-2024 Functional Status [facility] 07-01-2024 Functional Status 7am-3pm [facility] 07-01-2024 Functional Status [facility] 06-30-2024 Functional Status [facility] 06-30-2024 Functional Status Sar[facility] 06-30-2024 Functional Status NPO Status Maintained A [facility] 06-30-2024 Functional Status Sarai [facility] 06-30-2024 Functional Status left knee high removed/ off [facility] 06-30-2024 Functional Status Sarai [facility] 06-30-2024 Functional Status Sarai [facility] 06-29-2024 Functional Status Sarai [facility] 06-29-2024 Functional Status Mod A [facility] 06-29-2024 Functional Status [facility] 06-29-2024 Functional Status [facility] 06-29-2024 Functional Status Patient refused [facility] 06-29-2024 Functional Status [facility] 06-28-2024 Functional Status Afternoon Snack Percent 100 [facility] 06-28-2024 Functional Status Sarai [facility] 06-28-2024 [facility] 06-27-2024 Functional Status 55 [facility] 06-26-2024 Functional status Bedrest [facility] Work Phone: Mental Status Date Assessment Result Facility 09-03-2024 Cognitive function Voice/Name [facility] Work Phone: 09-01-2024 Cognitive function Level Of Cons ciousness Awake;Alert;Appropriate;Follow s Commands [facility] Work Phone: 07-01-2024 Mental Status Orientation Oriented x 4 [facility] 07-01-2024 Mental Status [facility] 06-30-2024 Mental Status [facility] 06-30-[address] [facility] 06-27-2024 Cognitive function Voice/Name [facility] Work Phone: 01-05-2022 Cognitive function Awake [facility] Work Phone: Clinical Notes 02-14-2023 to 10-14-2024 Note Date & Type Note Facility 10-14-2024 Radiology Diagnostic study note [facility] 09-03-2024 Note [facility] 09-01-2024 History and physi adrianna note [facility] 09-01-2024 Radiology Diagnostic study note [facility] Imaging Services [address] [place] [address] Chest PA and Lateral MR#: [id number] Acct: [id number] Name: LATRICE TURCIOS Rep #: [id number] : 1950 M 74 From: Saurabh Díaz DO PCP: Dr. Jessi Olguin MD Status: REG ER Study:Chest PA and Lateral Date of Exam: 09/01/24 Exam# [id number] Ordering Dr: Jessi Calloway DO PROCEDURE: CHEST PA AND LATERAL 09/01/2024 REASON FOR EXAM: CHEST PAIN TECHNIQUE: Frontal and lateral views of the chest. COMPARISON: None FINDINGS: Hardware: A cardiac pacemaker is present. Heart: There is severe cardiomegaly. Mediastinum: The mediastinal contour is unremarkable. Lungs: Patchy bibasilar airspace opacities. No pneumothorax. Elevated left hemidiaphragm. Bones: Vertebroplasty of the lower thoracic vertebral body. RAD/Chest PA and Lateral IMPRESSION: Patchy bibasilar airspace opacities, concerning for infiltrates. Elevated left hemidiaphragm. Reading Location: [place] CC: Dr. Jessi Calloway DO; Dr. Jessi Olguin MD ~ Operators School Manager: Signed [facility] 08-03-2024 Evaluation note Diagnosis Onset Date Resolution Bronchiectasis chronic August 03, 2024 8:15am Chronic diastolic (congestive) heart failure chronic August 03, 2024 8:15am COPD (chronic obstructive pulmonary disease) chronic August 03 8:15am Atrial fibrillation acute September 01, 2024 7:52am History of coronary artery stent placement June 25, 2024 acute September 01, 2024 7:52am Single implantable cardioverter-defibri llator (ICD) in situ acute September 01, 2024 7:52am Ventricular tachycardia acute September 01, 2024 7:52am Essential (primary) hypertension chronic September 01, 2024 7:52am Hyperlipidemia chronic September 01, 2024 7:52am DM type 2 (diabetes mellitus, type 2) chronic September 01 9:02pm Chest pain resolved September 01 9:02pm Pneumonia resolved September 01 9:02pm [facility] Work Phone: [phone]) 634-798801-29-2025 Note Date of Service 07/01 Subjective No acute issues. ICD site without any swelling, no pneumothorax on chest xray Intake and Output 7AM Yesterday to 7AM Today Intake and Output (Last 24 hours) Intake Administration Information 561.92 Oral Intake 1050.00 Output Urine Voided 900.00 Intra-Op EBL 5.00 Stool Count 2.00 Total Summary Total Intake 1611.92 Total Output 905.00 Fluid Balance 706.92 Physical Exam Constitutional: Oriented to time, place, and person well developed well nourished Cardiovascular: JVD not elevated, S1 S2 present,No added sounds, no lower extremity edema Abdomen: Nontender Musculoskeletal system: general/bilateral Normal movement of all extremities Neurological: N FND Skin: color and pigmentation is normal Weight Current Weight Dosing Weight: 110.5 kg (06/27/24) Current Weight: 111.9 kg (06/30/24) Current Weight: 109.2 kg (06/29/24) Medications Medications (48) Active Scheduled: (27) albuterol - ipratropium 2.5 mg-0.5 mg/3 mL Inhal Amrita UD 3 mL, Inhalation, QIDRT ammonium lactate Lotion 12% 1 isabela, Topical, BID aspirin 81 mg Chewable 81 mg 1 tab(s), Oral, qDayM atorvastatin 40 mg tablet 40 mg 1 tab(s), Oral, qHS budesonide 0.5 mg/2 mL Susp UD 0.5 mg 2 mL, Inhalation, BIDRT clopidogrel 75 mg Tablet 75 mg 1 tab(s), Oral, qDay ferrous sulfate 325 mg Tablet 325 mg 1 tab(s), Oral, qDay insulin glargine 18 unit(s) 0.18 mL, Subcutaneous (INT), qHS insulin lispro 100 units/mL Soln (3 mL) 5 unit(s) 0.05 mL, Subcutaneous, with breakfast insulin lispro 100 units/mL Soln (3 mL) , TIDAC insulin lispro 100 units/mL Soln (3 mL) insulin lispro 100 units/mL Soln (3 mL) Give 0-15 units/dose, Subcutaneous, TIDAC insulin lispro 100 units/mL Soln (3 mL) 5 unit(s) 0.05 mL, Subcutaneous, with lunch insulin lispro 100 units/mL Soln (3 mL) 5 unit(s) 0.05 mL, Subcutaneous, with breakfast insulin lispro 100 units/mL Soln (3 mL) 5 unit(s) 0.05 mL, Subcutaneous, with supper insulin lispro 100 units/mL Soln (3 mL) ipratropium 42 mcg/inh nasal spray (0.06%) 15 mL bottle 84 mcg 2 spray(s), Intranasal, TID levothyroxine 150 mcg tablet 150 mcg 1 tab(s), Oral, qDayAC lidocaine patch REMOVAL 1 EA, Miscellaneous, q24h lidocaine topical 4% patch 1 patch(es), Transdermal, q24h metoprolol succinate 25 mg ER tablet 25 mg 1 tab(s), Oral, qDayM No metformin for 48 hrs post contrast 1 EA, Miscellaneous, Unscheduled No metformin for 48 hrs post contrast 1 EA, Miscellaneous, Unscheduled pantoprazole 40 mg EC tablet 40 mg 1 tab(s), Oral, qDayAC polyethylene glycol 3350 - UD packet 17 gram(s) 15 mL, Oral, qDay ramipril 2.5 mg Capsule 2.5 mg 1 cap(s), Oral, qDay senna 8.6 mg Tablet 8.6 mg 1 tab(s), Oral, BID Continuous: (2) amiodarone 450 mg [0.5 mg/min] + sodium chloride MARYAM 250 mL 250 mL, Intravenous, 16.67 mL/hr heparin 25,000 unit(s) + Dextrose 5% Premix Diluent 250 mL 250 mL, Intravenous, 10 mL/hr PRN: (19) acetaminophen 325 mg Tablet 650 mg 2 tab(s), Oral, q4h acetaminophen 325 mg Tablet 650 mg 2 tab(s), Oral, Once acetaminophen-HYDROcodone 325-5 mg tablet 1 tab(s), Oral, q4h albuterol - ipratropium 2.5 mg-0.5 mg/3 mL Inhal Amrita UD 3 mL, Inhalation, q2hRT dextrose 50% Solution Disp syringe 50 mL 12.5 gram(s) 25 mL, IV Push, AsDirected heparin 5,000 units/mL (1 mL) vial 4,000 unit(s) 0.8 mL, IV Push, q6h magnesium sulfate 4 gram(s)/100mL PMX 4 g 100 mL, IV Piggyback, AsDirected magnesium sulfate 50% (500mg/mL) 6 g 12 mL, IV Piggyback, AsDirected magnesium sulfate PMX 2 g 50 mL, IV Piggyback, AsDirected methocarbamol 500 mg Tablet 500 mg 1 tab(s), Oral, TID morphine 2 mg/mL 1 mL syringe 1 mg 0.5 mL, IV Push, q1h morphine 2 mg/mL 1 mL syringe 2 mg 1 mL, IV Push, q4h nitroglycerin 0.4 mg Tablet (25/btl) 0.4 mg 1 tab(s), Sublingual, q5min potassium chloride (PMX) 20 mEq/100 mL 20 mEq 100 mL, IV Piggyback, AsDirected potassium chloride 20 mEq ER tablet 20 mEq 1 tab(s), Oral, AsDirected potassium chloride 20 mEq ER tablet 40 mEq 2 tab(s), Oral, AsDirected potassium chloride 20 mEq ER tablet 40 mEq 2 tab(s), Oral, AsDirected tramadol 50 mg Tablet 50 mg 1 tab(s), Oral, q6h trimethobenzamide 200 mg/2 mL Solution 200 mg 2 mL, Intramuscular, q6h Lab Results 07/01 02:50 WBC: 9.2 Hgb: 10.5 L Hct: 31.2 L Platelet: See Comment 4 Neutrophil %: 76.0 H Glucose Level: 187 H Sodium Level: 139 Potassium Level: 4.0 BUN: 18.0 Creatinine Lvl (s): 0.83 06/30 03:38 WBC: 8.3 Hgb: 10.5 L Hct: 30.1 L Platelet: See Comment Glucose Level: 243 H Sodium Level: 137 Potassium Level: 4.2 BUN: 20.0 Creatinine Lvl (s): 0.84 EKG Electrocardiogram (EKG) - Ordered -- 06/30/24 17:18:00 EST Electrocardiogram - InProcess -- 07/01/24 6:00:00 EST Electrocardiogram - Ordered -- 07/01/24 6:00:00 EST Assessment/Plan Recurrent VT s/p 48 hours of revascularization s/p ICD insertion Persistent afib on subtherapeutic doses of Xarelto at home CAD s/p PCI to ostial RCA 06/25/24, 30% Lmain, 40%proximal Lcx Type 2 DM COPD not on home O2 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 tach status post defibrillation at home. Was noted to be in A-fib with complete heart block on the medical floor after being admitted with bradycardia and ventricular pauses which thereby then prompted left heart cath on 06/25 status post re vascularization of the ostial RCA. 48 hours post revascularization, he had another episode of ventricular tachycardia and underwent successful defibrillation, was started on IV amiodarone and transferred to [place] for ICD evaluation. Echocardiogram repeated during this hospital stay shows EF of about 50 to 55% and Mildly increased RV cavity size, mildly increased RVSP. He underwent ICD insertion for secondary prevention successfully on 06/30. In terms of afib, Pt was on subtherapeutic doses of Xarelto as an outpatient (10mg for afib). We will increase it to therapeutic dose of Xarelto 20mg and encourage patient to take the medication withfood for better absorption. After 4 weeks of adequate anticoagulation, we will plan for DCCV and then start sotalol as an outpatient to maintain sinus rhythm. He can be discharged home on Xarelto 20qPM, Toprol XL 25 qday. Stop amiodarone. Stable from EP standpoint for DC today Digitally Signed by YOSI VERA MD on 07/01/2024 03:19 PM [id number] Pastoral care Progress note Pastoral Care Note Entered On: 07/01/2024 16:43 EST Performed On: 07/01/2024 16:43 EST by Rony Crowder Pastoral Care Type of Pastoral Visit : Initial visit Spiritual Care Visit Initiated by : Consult/Referral Spiritual Care Reason for Visit : General Pastoral Care Referral From : Nurse Spiritual Care Intervention : Discharged Before Seen Rony Crowder - 07/01/2024 16:43 EST Digitally Signed by Rony Crowder on 07/01/2024 04:43 PM [id number] Hospital Discharge instructions Patient Education 07/01/2024 13:32:57 3- Pacemaker/ICD New Device 07/2019(CUSTOM) PACEMAKER / ICD INSERTION Discharge Instructions WOUND CARE DO NOT place any ointments, creams, powders or lotions on the incision. Call your pacemaker/ICD doctor s office immediately if you have: oIncreased redness oDrainage from the incision oOpening of the incision oIncreased pain, warmth or swelling on or around the site oTemperature elevation above 100.5 Call if you experience dizziness or palpitations or a fast or slow heart rate If an Aquacel Ag surgical dressing has been applied: oYou may take a shower as long as the dressing is sealed well to your skin. oYou may remove the bandage in 7 days: To do this, press down on your skin with one hand and carefully lift an edge of the bandage with your other hand. Stretch the dressing to break the adhesive seal and gently pull it off. oIf the bandage becomes loose or falls off in less than 5 days, you will not be able to take any showers or baths. ?You must keep the incision dry for the first 5 days after your procedure. ?DO NOT clean the incision with any soap, water, peroxide or alcohol. ?Leave it dry and uncovered for 5 days, then you may shower using soap and water. oWear loose fitting clothes over the incisional site to avoid irritation until it is healed. If you do not have a dressing: oDO NOT shower or get the incision wet for 5 days. oDO NOT clean the incision with any soap, water, peroxide or alcohol. oLeave it dry and uncovered for 5 days, then you may shower using soap and water. oWear loose fitting clothes over the incisional site to avoid irritation until it is healed. MEDICATIONS Take antibiotics before dental work as prescribed by your physician (if prescribed) Take medications as directed until prescription is finished Avoid alcohol while taking medications You may take Tylenol (acetaminophen) for incisional pain or discomfort. ACTIVITY RESTRICTIONS DO NOT lift anything heavier than 5 lbs with the arm on the side of the Pacemaker/ICD for one month. DO NOT raise the arm on the side of the Pacemaker/ICD above shoulder level for one month. You may resume normal driving unless otherwise restricted. Driving may cause soreness at the incision site. FOLLOW UP Follow up with the Pacemaker/ICD center for routine evaluation of your device. Your appointment to have your device checked and to see the doctor in 12-14 weeks has been scheduled and is listed abovein the Follow Up section of these discharge instruction. Device Monitor Now that you have a permanent pacemaker, ICD, and/or loop recorder (all called a device ) it shouldbe checked regularly. This is done with a monitor that sends information from the device to your brazing machine setter (heart doctor) office. How will I get my monitor? The monitor will be shipped to your home within 6 weeks after you are discharged. But, if you are given the monitor before discharge, please take it home. You may get other equipment (such as a bloodpressure cuff and weight scale) shipped as well. There is no charge for this equipment. How does the monitor work? The monitor needs to be set up close to where you sleep. The monitor will automatically pickling operator heart signals and send the information to your doctor. Or you may be asked to push a button to send theinformation. What are the next steps? You will have an appointment with the nurse at the Device Clinic in about 2 weeks and the nurse will check your device (you will not see your doctor). The nurses will talk to you about the monitor atthat time. When you get the monitor, there will be clear instructions with how to set it up. Please call the Device Clinic if you have questions. [facility]: [phone] Ask for the Device Clinic or joe-in extension [phone] when prompted. Device Clinic Location: [facility] (not the physician office building). Enter the [facility] and take the elevators to the 2nd floor. Take the lee to the slight left labeled [facility] . If you are interested, you may find information about your device on the web, including videos thatwill help you understand and set up your monitor. The monitor you will get is based on the company that manufactured your device. Your device card will tell you the hypercil core transformer assembler. Using the search box: zanda: [employer] Communicator quick start oPatient Help: [employer]: [facility] quick start oPatient Help: [facility] ([place]): [email or web address] quick start oPatient Help: Other important information about your device: Always carry your device card with you. Your device may set off a metal detector. Be sure you have your device card with you if you plan togo through any area, such as an airport that may have a metal detector. Before having any test or procedure, make sure you tell the healthcare professional that you have an implanted device. IMPLANTABLE CARDIOVERTER-DEFIBRILATOR (ICD) Instructions and Precautions ELECTRICAL CONCERNS Normal household appliances like TV, refrigerator, microwave oven/stove, and small electrically powered motor appliances WILL NOT interfere with your ICD. When talking on your cell phone, hold the phone with the arm that does not have your ICD. Do not carry your cell phone in your shirt pocket! ICD DISCHARGE If you receive one shock , sit down and wait a minute. Take some slow deep breaths. If you receive further immediate shocks, remain sitting or lying down. After receiving shocks, if you have a Home Monitoring system for your ICD, please do an automated transmission and call your ICD doctor to advise them of therapies. A family member, friend, etc., should call an ambulance if you become unresponsive at any time. You should call 911 if multiple shocks occur, or if you do not feel well after 1-2 minutes from your shock. MAGNETIC CONCERNS Avoid strong magnetic gaytan, i.e.: large speakers, TV towers, magnets in race car shops. Staying 6-12 feet away is okay. Do not touch the radio antenna or [facility] radio antenna that are in operation. Do not touch spark plugs or distributor wires of a running car or catholic priest. Avoid the fenced enclosure areas of a radio or TV transmitting tower. Avoid machinery with magnets; industrial shops, arc welders, and race car repair areas. Avoid placing stereo speakers close to your device as they have magnets in them. MEDICAL IDENTIFICATION Carry your ICD card with you at all times. It is suggested that you provide a copy of your card to family members/significant others. PERSONAL CONTACT Should your ICD discharge while another person is touching you, that person may feel a slight muscular contraction that is not harmful. NOTIFICATION OF HEALTH PROFESSIONALS Notify your personal physician about your ICD. You must tell your surgeon or Envelope Stuffer before you undergo any procedure or surgery. This includes, but is not limited to: any surgery, colonoscopy and/or EGD s. Follow Up Care 06/27/2024 09:11:53 With:ELBA WOOD MD Address: [address] [address] [phone] When:5 to 7 days With:SEDRICK ALEXANDER MD Address: [address] [place] [id number] [phone] When:5 to 7 days With:Discharge to [place] [facility] Level of Care Address:Unknown When:1-2 days With:JESSI OLGUIN MD Address: [facility] [address] [place] [address]- When:1-2 days Comments:Please call the office to schedule a hospital follow up appointment. With:INCISION CHECK Address: [address] [place] [address] [address]- [phone] When:07/16/2024 09:45:00 With:DEVICE [facility]IC Address: [address] [place] [address] [address]- [phone] When:09/29/2024 13:45:00 With:READMISSION RISK SCORE Address:Unknown When: Unknown Comments:11 [facility] 01-29-2025 Note Date of Service 07/01 Subjective No acute issues. ICD site without any swelling, no pneumothorax on chest xray Intake and Output 7AM Yesterday to 7AM Today Intake and Output (Last 24 hours) Intake Administration Information 561.92 Oral Intake 1050.00 Output Urine Voided 900.00 Intra-Op EBL 5.00 Stool Count 2.00 Total Summary Total Intake 1611.92 Total Output 905.00 Fluid Balance 706.92 Physical Exam Constitutional: Oriented to time, place, and person well developed well nourished Cardiovascular: JVD not elevated, S1 S2 present,No added sounds, no lower extremity edema Abdomen: Nontender Musculoskeletal system: general/bilateral Normal movement of all extremities Neurological: N FND Skin: color and pigmentation is normal Weight Current Weight Dosing Weight: 110.5 kg (06/27/24) Current Weight: 111.9 kg (06/30/24) Current Weight: 109.2 kg (06/29/24) Medications Medications (48) Active Scheduled: (27) albuterol - ipratropium 2.5 mg-0.5 mg/3 mL Inhal Amrita UD 3 mL, Inhalation, QIDRT ammonium lactate Lotion 12% 1 isabela, Topical, BID aspirin 81 mg Chewable 81 mg 1 tab(s), Oral, qDayM atorvastatin 40 mg tablet 40 mg 1 tab(s), Oral, qHS budesonide 0.5 mg/2 mL Susp UD 0.5 mg 2 mL, Inhalation, BIDRT clopidogrel 75 mg Tablet 75 mg 1 tab(s), Oral, qDay ferrous sulfate 325 mg Tablet 325 mg 1 tab(s), Oral, qDay insulin glargine 18 unit(s) 0.18 mL, Subcutaneous (INT), qHS insulin lispro 100 units/mL Soln (3 mL) 5 unit(s) 0.05 mL, Subcutaneous, with breakfast insulin lispro 100 units/mL Soln (3 mL) , TIDAC insulin lispro 100 units/mL Soln (3 mL) insulin lispro 100 units/mL Soln (3 mL) Give 0-15 units/dose, Subcutaneous, TIDAC insulin lispro 100 units/mL Soln (3 mL) 5 unit(s) 0.05 mL, Subcutaneous, with lunch insulin lispro 100 units/mL Soln (3 mL) 5 unit(s) 0.05 mL, Subcutaneous, with breakfast insulin lispro 100 units/mL Soln (3 mL) 5 unit(s) 0.05 mL, Subcutaneous, with supper insulin lispro 100 units/mL Soln (3 mL) ipratropium 42 mcg/inh nasal spray (0.06%) 15 mL bottle 84 mcg 2 spray(s), Intranasal, TID levothyroxine 150 mcg tablet 150 mcg 1 tab(s), Oral, qDayAC lidocaine patch REMOVAL 1 EA, Miscellaneous, q24h lidocaine topical 4% patch 1 patch(es), Transdermal, q24h metoprolol succinate 25 mg ER tablet 25 mg 1 tab(s), Oral, qDayM No metformin for 48 hrs post contrast 1 EA, Miscellaneous, Unscheduled No metformin for 48 hrs post contrast 1 EA, Miscellaneous, Unscheduled pantoprazole 40 mg EC tablet 40 mg 1 tab(s), Oral, qDayAC polyethylene glycol 3350 - UD packet 17 gram(s) 15 mL, Oral, qDay ramipril 2.5 mg Capsule 2.5 mg 1 cap(s), Oral, qDay senna 8.6 mg Tablet 8.6 mg 1 tab(s), Oral, BID Continuous: (2) amiodarone 450 mg [0.5 mg/min] + sodium chloride MARYAM 250 mL 250 mL, Intravenous, 16.67 mL/hr heparin 25,000 unit(s) + Dextrose 5% Premix Diluent 250 mL 250 mL, Intravenous, 10 mL/hr PRN: (19) acetaminophen 325 mg Tablet 650 mg 2 tab(s), Oral, q4h acetaminophen 325 mg Tablet 650 mg 2 tab(s), Oral, Once acetaminophen-HYDROcodone 325-5 mg tablet 1 tab(s), Oral, q4h albuterol - ipratropium 2.5 mg-0.5 mg/3 mL Inhal Amrita UD 3 mL, Inhalation, q2hRT dextrose 50% Solution Disp syringe 50 mL 12.5 gram(s) 25 mL, IV Push, AsDirected heparin 5,000 units/mL (1 mL) vial 4,000 unit(s) 0.8 mL, IV Push, q6h magnesium sulfate 4 gram(s)/100mL PMX 4 g 100 mL, IV Piggyback, AsDirected magnesium sulfate 50% (500mg/mL) 6 g 12 mL, IV Piggyback, AsDirected magnesium sulfate PMX 2 g 50 mL, IV Piggyback, AsDirected methocarbamol 500 mg Tablet 500 mg 1 tab(s), Oral, TID morphine 2 mg/mL 1 mL syringe 1 mg 0.5 mL, IV Push, q1h morphine 2 mg/mL 1 mL syringe 2 mg 1 mL, IV Push, q4h nitroglycerin 0.4 mg Tablet (25/btl) 0.4 mg 1 tab(s), Sublingual, q5min potassium chloride (PMX) 20 mEq/100 mL 20 mEq 100 mL, IV Piggyback, AsDirected potassium chloride 20 mEq ER tablet 20 mEq 1 tab(s), Oral, AsDirected potassium chloride 20 mEq ER tablet 40 mEq 2 tab(s), Oral, AsDirected potassium chloride 20 mEq ER tablet 40 mEq 2 tab(s), Oral, AsDirected tramadol 50 mg Tablet 50 mg 1 tab(s), Oral, q6h trimethobenzamide 200 mg/2 mL Solution 200 mg 2 mL, Intramuscular, q6h Lab Results 07/01 02:50 WBC: 9.2 Hgb: 10.5 L Hct: 31.2 L Platelet: See Comment 4 Neutrophil %: 76.0 H Glucose Level: 187 H Sodium Level: 139 Potassium Level: 4.0 BUN: 18.0 Creatinine Lvl (s): 0.83 06/30 03:38 WBC: 8.3 Hgb: 10.5 L Hct: 30.1 L Platelet: See Comment Glucose Level: 243 H Sodium Level: 137 Potassium Level: 4.2 BUN: 20.0 Creatinine Lvl (s): 0.84 EKG Electrocardiogram (EKG) - Ordered -- 06/30/24 17:18:00 EST Electrocardiogram - InProcess -- 07/01/24 6:00:00 EST Electrocardiogram - Ordered -- 07/01/24 6:00:00 EST Assessment/Plan Recurrent VT s/p 48 hours of revascularization s/p ICD insertion Persistent afib on subtherapeutic doses of Xarelto at home CAD s/p PCI to ostial RCA 06/25/24, 30% Lmain, 40%proximal Lcx Type 2 DM COPD not on home O2 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 tach status post defibrillation at home. Was noted to be in A-fib with complete heart block on the medical floor after being admitted with bradycardia and ventricular pauses which thereby then prompted left heart cath on 06/25 status post re vascularization of the ostial RCA. 48 hours post revascularization, he had another episode of ventricular tachycardia and underwent successful defibrillation, was started on IV amiodarone and transferred to [facility] for ICD evaluation. Echocardiogram repeated during this hospital stay shows EF of about 50 to 55% and Mildly increased RV cavity size, mildly increased RVSP. He underwent ICD insertion for secondary prevention successfully on 06/30. In terms of afib, Pt was on subtherapeutic doses of Xarelto as an outpatient (10mg for afib). We will increase it to therapeutic dose of Xarelto 20mg and encourage patient to take the medication withfood for better absorption. After 4 weeks of adequate anticoagulation, we will plan for DCCV and then start sotalol as an outpatient to maintain sinus rhythm. He can be discharged home on Xarelto 20qPM, Toprol XL 25 qday. Stop amiodarone. Stable from EP standpoint for DC today Digitally Signed by YOSI VERA MD on 07/01/2024 03:19 PM [id number] Discharge Instructions Thank you for allowing [facility] to assist you with your healthcare needs. The following is importantdischarge information regarding your hospital visit. Your Diagnosis VT (ventricular tachycardia) What to do next Scheduled Follow-Up Appointments Appointment Type When Where Contact Information StatusCV Incision Check 07/16/2024 09:45 AM EST [facility] Confirmed CV Office Procedure ICD 09/29/2024 01:45 PM EDT [facility] Confirmed CV Remote Procedure HM 12/30/2024 06:45 PM EDT [facility] Confirmed Follow Up Appointments Follow Up with ELBA WOOD MD When:Within 5 to 7 days Where:[address] [place] [address]- [phone] Follow Up with SEDRICK ALEXANDER MD When:Within 5 to 7 days Where:[address] [place] [address]- [phone] Follow Up with Discharge to [place] [facility] Level of Care When:Within 1-2 days Follow Up with JESSI OLGUIN MD When:Within 1-2 days Where:[facility] [address] [place] [address]- Additional Information: Please call the office to schedule a hospital follow up appointment. Follow Up with READMISSION RISK SCORE Additional Information: 11 Follow Up with INCISION CHECK When:07/16/2024 09:45 AM EST Where:[address] [facility] [place], [place] [address]- [phone] Follow Up with [facility] When:09/29/2024 01:45 PM EDT Where:[address] [facility]. [address] [place] [address]- [phone] The Following Activity and Diet Have Been Ordered for You Discharge Activity - Ordered -- Resume your pre-hospitalization activity, 07/01/24 16:53:00 EST Transfer of Care Activity - Ordered -- Activity As Tolerated, 07/01/24 13:07:00 EST Discharge Diet - Ordered -- 06/30/24 16:54:00 EST Transfer of Care Diet - Ordered -- Type of Diet: Regular Diet, 07/01/24 13:07:00 EST The Following Equipment Has Been Ordered for You No qualifying data available. The Following Treatments Have Been Ordered for You Discharge Labs No qualifying data available. Discharge Radiology No qualifying data available. Other Therapies Transfer of Care OT - Ordered -- Reason for therapy: decreased mobility, 07/01/24 13:07:00 EST Transfer of Care PT - Ordered -- Reason for therapy: decreased mobility, 07/01/24 13:07:00 EST Post Acute Orders Transfer of Care Admission Level of Care - Ordered -- Level of Care SNF, 07/01/24 13:09:17 EST Transfer of Care Code Status - Ordered -- Full Code, Constant Order Transfer of Care Communication Order - Ordered -- Expect less than 30 day stay., 07/01/24 13:09:17 EST Transfer of Care Orders Electronically Signed By - Ordered -- 07/01/24 13:07:00 EST, SEDRICK ALEXANDER MD Transfer of Care Prognosis - Ordered -- Fair, Patient Aware: Yes Transfer of Care Rehab Potential - Ordered -- Rehab potential fair, 07/01/24 13:07:45 EST Someone Will Contact You Regarding These Home Health Referrals No home referrals have been ordered for you. No one will call you. Allergies Shellfish Hives Medications Please ask your primary doctor or pharmacist before taking any other medication not listed, including over the counter drugs, herbal medications, vitamins and or supplements as they may interact [facility]. What How Much When Instructions Last Dose New clopidogrel (Plavix 75 mg oral tablet) 1 tab(s) by mouth Once a day Refills: 3 Pickup at [facility] New metoprolol (Toprol-XL 25 mg oral tablet, extended release) 1 tab(s) by mouth Once a day with a meal Refills: 3 Pickup at [email or web address] New ramipril (ramipril 2.5 mg oral capsule) 1 cap by mouth Once a day Refills: 3 Pickup at [email or web address] Changed rivaroxaban (Xarelto 20 mg oral tablet) 1 tab(s) by mouth With supper Pickup at [email or web address] Unchanged cholecalciferol (Vitamin D3) 100 Microgram by mouth Every day Unchanged ferrous sulfate (ferrous sulfate 325 mg (65 mg elemental iron) oral delayed release tablet) 1 tab(s) by mouth Once a day Unchanged insulin glargine (Lantus 100 units/ mL10 ml vial solution) 10 unit(s) Subcutaneous Once a day (in the morning) Unchanged insulin lispro (HumaLOG) (Lyumjev KwikPen 200 units/ mL subcutaneous solution) 12 unit(s) INJECT 12 units twice daily under the skin as directed with meal Unchanged ipratropium nasal (ipratropium 42 mcg/ inh (0.06%) nasal spray) 2 spray(s) use 1 to 2 (TWO) spays in the nose three times daily prior to meals to prevent nasal running OR prior to bed Unchanged levothyroxine (levothyroxine 150 mcg (0.15 mg) oral tablet) 1 tab(s) by mouth Once a day before a meal Unchanged metFORMIN (MetFORMIN (Eqv-Glucophage XR) 500 mg oral tablet, EXTENDED RELEASE) TAKE 2 TABLETS BY MOUTH EVERY DAY Unchanged pravastatin (pravastatin 40 mg oral tablet) 1 tab(s) by mouth Daily at bedtime Unchanged traMADol (traMADol 25 mg oral tablet) 2 tab(s) by mouth Every 6 hours as needed for as needed for pain not to exceed 400 mg/ day Unchanged venlafaxine (venlafaxine 225 mg oral tablet, extended release) TAKE 1 TABLET BY MOUTH EVERY DAY Pharmacy Information [email or web address]: [address] [place], [place] [id number] [phone] Please take this list to your next doctor s visit. Bring all medications you take, including over the counter medications, herbals and other supplements with you to your doctor s visit. Patients and families are reminded to discard old lists and to update any records with all medication providers or retail pharmacies. Medication Leaflets ramipril (DIMA i pril) Altace What is the most important information I should know about ramipril? Do not use if you are . If you become , stop taking this medicine and tell your doctor right away. You should not use ramipril if you have ever had angioedema. Do not take ramipril within 36 hours before or after taking medicine that contains sacubitril (such as Entresto). If you have diabetes, do not use ramipril together with any medication that contains aliskiren (a blood pressure medicine). What is ramipril? Ramipril is an CHRISTIAN inhibitor that is used to treat high blood pressure (hypertension). Lowering blood pressure may lower your risk of a stroke or heart attack. Ramipril is also used to treat congestive heart failure. Ramipril may also be used for purposes not listed in this medication guide. What should I discuss with my healthcare provider before taking ramipril? You should not use ramipril if you are allergic to it, or if: you recently took a heart medicine called sacubitril; or you have ever had a severe allergic reaction to any CHRISTIAN inhibitor (benazepril, captopril, enalapril, fosinopril, lisinopril, moexipril, perindopril, quinapril, or trandolapril). Do not take ramipril within 36 hours before or after taking medicine that contains sacubitril (suchas Entresto). If you have diabetes, do not use ramipril together with any medication that contains aliskiren (a blood pressure medicine). You may also need to avoid taking ramipril with aliskiren if you have kidney disease. Tell your doctor if you have ever had: kidney disease (or if you are on dialysis); an electrolyte imbalance (such as high levels of potassium in your blood); liver disease; a connective tissue disease such as Marfan syndrome, Sjogren's syndrome, lupus, scleroderma, or rheumatoid arthritis; if you are on a low-salt diet; or if you are also taking telmisartan (Micardis). Do not use if you are . If you become , stop taking this medicine and tell your doctor right away. Ramipril can cause injury or to the unborn baby if you take the medicine during your second or third trimester. You should not breast-feed while you are using ramipril. Ramipril is not approved for use by anyone younger than 18 years old. How should I take ramipril? Follow all directions on your prescription label and read all medication guides or instruction sheets. Your doctor may occasionally change your dose. Use the medicine exactly as directed. Swallow the tablet whole. Your blood pressure will need to be checked often, and you may need blood tests. Call your doctor if you have ongoing vomiting or diarrhea, or if you are sweating more than usual. You can easily become dehydrated while taking ramipril. This can lead to very low blood pressure, electrolyte disorders, or kidney failure. If you need surgery, tell the surgeon ahead of time that you are using ramipril. If you are being treated for high blood pressure, keep using this medicine even if you feel well. High blood pressure often has no symptoms. You may need to use blood pressure medication for the restof your life. Store at room temperature away from moisture, heat, and light. Keep the bottle tightly closed when not in use. What happens if I miss a dose? Take the medicine as soon as you can, but skip the missed dose if it is almost time for your next dose. Do not take two doses at one time. What happens if I overdose? Seek emergency medical attention or call the Poison Help line at . What should I avoid while taking ramipril? Avoid getting up too fast from a sitting or lying position, or you may feel dizzy. Do not use potassium supplements or salt substitutes, unless your doctor has told you to. What are the possible side effects of ramipril? Get emergency medical help if you have signs of an allergic reaction: hives; severe stomach pain; difficulty breathing; swelling of your face, lips, tongue, or throat. You may be more likely to have an allergic reaction if you are -Belarusian. Call your doctor at once if you have: a light-headed feeling, like you might pass out; jaundice (yellowing of your skin or eyes); little or no urination; fever, chills, sore throat; or high potassium--nausea, weakness, tingly feeling, chest pain, irregular heartbeats, loss of movement. Common side effects may include: headache; cough; or dizziness, weakness, tired feeling. This is not a complete list of side effects and others may occur. Call your doctor for medical advice about side effects. You may report side effects to FDA at 9-651-MEW-0243. What other drugs will affect ramipril? Tell your doctor about all your current medicines. Many drugs can affect ramipril, especially: a diuretic ('water pill'), or any other blood pressure medications; lithium; gold injections to treat arthritis; insulin or oral diabetes medicine; or NSAIDs (nonsteroidal anti-inflammatory drugs)--aspirin, ibuprofen (Advil, Motrin), naproxen (Aleve), celecoxib, diclofenac, indomethacin, meloxicam, and others. This list is not complete and many other drugs may affect ramipril. This includes prescription and vnam-wit-pawwtty medicines, vitamins, and herbal products. Not all possible drug interactions are listed here. Where can I get more information? Your pharmacist can provide more information about ramipril. Remember, keep this and all other medicines out of the reach of children, never share your medicines with others, and use this medication only for the indication prescribed. Every effort has been made to ensure that the information provided by [employer]. ('[employer]') is accurate, up-to-date, and complete, but no guarantee is made to that effect. Drug information contained herein may be time sensitive. [employer] information has been compiled for use by healthcare practitioners and consumers in the [place] and therefore [employer] does not warrant that uses outside of the [place] are appropriate, unless specifically indicated otherwise. [employer] drug information does not endorse drugs, diagnose patients or recommend therapy. [employer] drug information isan informational resource designed to assist licensed healthcare practitioners in caring for their p atients and/or to serve consumers viewing this service as a supplement to, and not a substitute for, the expertise, skill, knowledge and judgment of healthcare practitioners. The absence of a warningfor a given drug or drug combination in no way should be construed to indicate that the drug or drug combination is safe, effective or appropriate for any given patient. [facility] does not assume any responsibility for any aspect of healthcare administered with the aid of information [facility] provides. The information contained herein is not intended to cover all possible uses, directions, precautions, warnings, drug interactions, allergic reactions, or adverse effects. If you have questions about the drugs you are taking, check with your doctor, nurse or pharmacist. Copyright 1738-4565 [facility] [employer]. Version: 15.. Revision Date: 10/03/2018. Education Materials PACEMAKER / ICD INSERTION Discharge Instructions WOUND CARE DO NOT place any ointments, creams, powders or lotions on the incision. Call your pacemaker/ICD doctor s office immediately if you have: o Increased redness o Drainage from the incision o Opening of the incision o Increased pain, warmth or swelling on or around the site o Temperature elevation above 100.5 Call if you experience dizziness or palpitations or a fast or slow heart rate If an Aqu[employer] surgical dressing has been applied: o You may take a shower as long as the dressing is sealed well to your skin. o You may remove the bandage in 7 days: To do this, press down on your skin with one hand and carefully lift an edge of the bandage with your other hand. Stretch the dressing to break the adhesive sealand gently pull it off. o If the bandage becomes loose or falls off in less than 5 days, you will not be able to take any showers or baths. ? You must keep the incision dry for the first 5 days after your procedure. ? DO NOT clean the incision with any soap, water, peroxide or alcohol. ? Leave it dry and uncovered for 5 days, then you may shower using soap and water. o Wear loose fitting clothes over the incisional site to avoid irritation until it is healed. If you do not have a dressing: o DO NOT shower or get the incision wet for 5 days. o DO NOT clean the incision with any soap, water, peroxide or alcohol. o Leave it dry and uncovered for 5 days, then you may shower using soap and water. o Wear loose fitting clothes over the incisional site to avoid irritation until it is healed. MEDICATIONS Take antibiotics before dental work as prescribed by your physician (if prescribed) Take medications as directed until prescription is finished Avoid alcohol while taking medications You may take Tylenol (acetaminophen) for incisional pain or discomfort. ACTIVITY RESTRICTIONS DO NOT lift anything heavier than 5 lbs with the arm on the side of the Pacemaker/ICD for one month. DO NOT raise the arm on the side of the Pacemaker/ICD above shoulder level for one month. You may resume normal driving unless otherwise restricted. Driving may cause soreness at the incision site. FOLLOW UP Follow up with the Pacemaker/ICD center for routine evaluation of your device. Your appointment to have your device checked and to see the doctor in 12-14 weeks has been scheduled and is listed abovein the Follow Up section of these discharge instruction. Device Monitor Now that you have a permanent pacemaker, ICD, and/or loop recorder (all called a device ) it shouldbe checked regularly. This is done with a monitor that sends information from the device to your brazing machine setter (heart doctor) office. How will I get my monitor? The monitor will be shipped to your home within 6 weeks after you are discharged. But, if you are given the monitor before discharge, please take it home. You may get other equipment (such as a bloodpressure cuff and weight scale) shipped as well. There is no charge for this equipment. How does the monitor work? The monitor needs to be set up close to where you sleep. The monitor will automatically pickling operator heart signals and send the information to your doctor. Or you may be asked to push a button to send theinformation. What are the next steps? You will have an appointment with the nurse at the Device Clinic in about 2 weeks and the nurse will check your device (you will not see your doctor). The nurses will talk to you about the monitor atthat time. When you get the monitor, there will be clear instructions with how to set it up. Please call the Device Clinic if you have questions. [facility]: [phone] Ask for the Device Clinic or joe-in extension [phone] when prompted. Device Clinic Location: [facility] (not the physician office building). Enter the [facility] and take the elevators to the 2nd floor. Take the lee to the slight left labeled [facility] . If you are interested, you may find information about your device on the web, including videos thatwill help you understand and set up your monitor. The monitor you will get is based on the company that manufactured your device. Your device card will tell you the hypercil core transformer assembler. Using the search box: zanda: [employer] Communicator quick start o Patient Help: [employer]: [facility] quick start o Patient Help: [facility] [employer] ([place]): [email or web address] quick start o Patient Help: Other important information about your device: Always carry your device card with you. Your device may set off a metal detector. Be sure you have your device card with you if you plan togo through any area, such as an airport that may have a metal detector. Before having any test or procedure, make sure you tell the healthcare professional that you have an implanted device. IMPLANTABLE CARDIOVERTER-DEFIBRILATOR (ICD) Instructions and Precautions ELECTRICAL CONCERNS Normal household appliances like TV, refrigerator, microwave oven/stove, and small electrically powered motor appliances WILL NOT interfere with your ICD. When talking on your cell phone, hold the phone with the arm that does not have your ICD. Do not carry your cell phone in your shirt pocket! ICD DISCHARGE If you receive one shock , sit down and wait a minute. Take some slow deep breaths. If you receive further immediate shocks, remain sitting or lying down. After receiving shocks, if you have a Home Monitoring system for your ICD, please do an automated transmission and call your ICD doctor to advise them of therapies. A family member, friend, etc., should call an ambulance if you become unresponsive at any time. You should call 911 if multiple shocks occur, or if you do not feel well after 1-2 minutes from your shock. MAGNETIC CONCERNS Avoid strong magnetic gaytan, i.e.: large speakers, TV towers, magnets in race car shops. Staying 6-12 feet away is okay. Do not touch the CB radio antenna or [facility] radio antenna that are in operation. Do not touch spark plugs or distributor wires of a running car or catholic priest. Avoid the fenced enclosure areas of a radio or TV transmitting tower. Avoid machinery with magnets; industrial shops, arc welders, and race car repair areas. Avoid placing stereo speakers close to your device as they have magnets in them. MEDICAL IDENTIFICATION Carry your ICD card with you at all times. It is suggested that you provide a copy of your card to family members/significant others. PERSONAL CONTACT Should your ICD discharge while another person is touching you, that person may feel a slight muscular contraction that is not harmful. NOTIFICATION OF HEALTH PROFESSIONALS Notify your personal physician about your ICD. You must tell your surgeon or Envelope Stuffer before you undergo any procedure or surgery. This includes, but is not limited to: any surgery, colonoscopy and/or EGD s. Additional Information VACCINATE! IT SAVES LIVES! Members of the community who have not yet received the COVID-19 vaccine and would like to receive it can visit one of [facility] vaccine clinics. There are many vaccine clinic locations within the [facility]. For locations and available times, please visit [email or web address].[email or web address]/. It is important to note that some COVID mobile vaccine clinics are held outdoors and may be canceled in rainy or stormy conditions. To learn more about pediatric vaccinations (ages 5-11), we invite you to visit the [facility] webpage. [email or web address]/[email or web address] learn more about the COVID-19 vaccine, we invite you to visit the CDC website for a list of frequently asked questions.https://www.cdc.gov/coronavirus/2019-ncov/vaccines/faq.html [facility] Patient Portal Access Instructions: Stay connected with your healthcare team and access your personal medical information anytime with the [facility] Patient Portal. Please follow the directions below to create your [facility] account: 1.Access the email account you provided upon registration to the hospital/physician office.2.Look for an invitation email from [facility].3.Open the email and access the invitation link: AcceptInvitation to [facility].4.Fill in the required gaytan to create your account. To access your account, visit [employer]. Click the blue button labeled Access Patient Portal and then log in with the username and password that you created in the steps above. You will be able to view your test results, lab results, a summary of your visits, upcoming appointments and more. There is also a convenient messaging option where you can send secure messages to your p rovider. In addition, you will have the ability to download any documents or summaries to your computer and/or send the information securely to a physician. Remember that your healthcare information is confidential, so carefully consider who you will allowto register on the [facility] for access to your information. You can also access the [facility] on the [place] [facility] isabela. Simply click on Patient Portal and then log into your account. If you would like to receive a full copy of your medical records, please contact the [facility] Medical Records Department by calling [phone], Saturday through Saturday between 8 a.m. and 4:30 p.m. HOW TO SAFELY DISPOSE OF PRESCRIPTION MEDICATIONS Please use one of the following methods to safely dispose of your unused medications. 1.Use a drug disposal kit: the drug disposal pouch allows you to safely discard your old and unuseddrugs. Ask your nurse to give you one when you are discharged.2.Visit a local take-back location: Many local pharmacies and police departments have programs that collect old and unwanted prescriptiondrugs. Call your local pharmacy or go to http://enrich-in.protected-networks.com/6V3Aw0z to find one close to you.3.Make use of household items: Use cat litter or old coffee grounds to dispose medications if other options arenot available. Mix your drugs with these household products, seal them in an airtight container andthrow it into the garbage. Call [facility]: [phone] to be sure your drugs can be disposed of in this way. Some medicines may require a different approach.4.Never flush your medications down the toilet. IF YOU HAVE BEEN PRESCRIBED AN OPIOID FOR PAIN If you have been prescribed an opioid (such as hydrocodone, oxycodone or morphine), it is critical to understand the possible side effects and risks of opioid pain medications. Even when taken as directed, opioids can have several side effects including: Tolerance, meaning you might need to take more of a medication for the same pain relief. Nausea, vomiting and/or constipation. Sleepiness, dizziness, dry mouth, confusion, depression or itching. Physical dependence, meaning you have withdrawal symptoms when a medication is stopped, can develop within a few days. KNOW YOUR RESPONSIBILITIES It is important to know exactly how much and how often to take the opioid pain medications you are prescribed. Never take opioids in higher amounts or more often than prescribed. Do not combine opioids with alcohol or other drugs that cause drowsiness, such as benzodiazepines, also known as benzos, including diazepam and alprazolam, muscle relaxants or sleep aids. Never sell or share prescription opioids. This is illegal. Store opioids in a secure place and out of reach of others (including children, family, friends and visitors). The last page of this document has been signed and retained as a CHART COPY. Signatures Patient Education Materials 3- Pacemaker/ICD New Device 07/2019(CUSTOM) Medication Leaflets ramipril My discharge plan and instructions have been reviewed and explained to me and I,ARMIN TURCIOS understand my current condition and have read and understand these discharge instructions. I have received a written copy of the plan/instructions. If I have questions, I am aware that I should contact my doctor. Patient/Lock Expert Signature: Date/Time: Relationship to Patient: Witness Name/Signature: Date[facility]Time[id number] Note Discharge Instructions Thank you for allowing [facility] to assist you with your healthcare needs. The following is importantdischarge information regarding your hospital visit. Your Diagnosis VT (ventricular tachycardia) What to do next Scheduled Follow-Up Appointments Appointment Type When Where Contact Information StatusCV Incision Check 07/16/2024 09:45 AM EST [facility] Procedure ICD 09/29/2024 01:45 PM EDT [facility] Confirmed CV Remote Procedure HM 12/30/2024 06:45 PM EDT [facility] Confirmed Follow Up Appointments Follow Up with ELBA WOOD MD When:Within 5 to 7 days Where:[address] [place] [address]- [phone] Follow Up with SEDRICK ALEXANDER MD When:Within 5 to 7 days Where:[address] [place] [address] [phone] Follow Up with Discharge to [place] [facility] Level of Care When:Within 1-2 days Follow Up with JESSI OLGUIN MD When:Within 1-2 days [facility] [address] [place] [address]- Additional Information: Please call the office to schedule a hospital follow up appointment. Follow Up with READMISSION RISK SCORE Additional Information: 11 Follow Up with INCISION CHECK When:07/16/2024 09:45 AM EST Where:[address] [address]- [phone] Follow Up with [facility] When:09/29/2024 01:45 PM EDT Where:[address] [place] [phone] The Following Activity and Diet Have Been Ordered for You Discharge Activity - Ordered -- Resume your pre-hospitalization activity, 07/01/24 16:53:00 EST Transfer of Care Activity - Ordered -- Activity As Tolerated, 07/01/24 13:07:00 EST Discharge Diet - Ordered -- 06/30/24 16:54:00 EST Transfer of Care Diet - Ordered -- Type of Diet: Regular Diet, 07/01/24 13:07:00 EST The Following Equipment Has Been Ordered for You No qualifying data available. The Following Treatments Have Been Ordered for You Discharge Labs No qualifying data available. Discharge Radiology No qualifying data available. Other Therapies Transfer of Care OT - Ordered -- Reason for therapy: decreased mobility, 07/01/24 13:07:00 EST Transfer of Care PT - Ordered -- Reason for therapy: decreased mobility, 07/01/24 13:07:00 EST Post Acute Orders Transfer of Care Admission Level of Care - Ordered -- Level of Care SNF, 07/01/24 13:09:17 EST Transfer of Care Code Status - Ordered -- Full Code, Constant Order Transfer of Care Communication Order - Ordered -- Expect less than 30 day stay., 07/01/24 13:09:17 EST Transfer of Care Orders Electronically Signed By - Ordered -- 07/01/24 13:07:00 EST, SEDRICK ALEXANDER MD Transfer of Care Prognosis - Ordered -- Fair, Patient Aware: Yes Transfer of Care Rehab Potential - Ordered -- Rehab potential fair, 07/01/24 13:07:45 EST Someone Will Contact You Regarding These Home Health Referrals No home referrals have been ordered for you. No one will call you. Allergies Shellfish Hives Medications Please ask your primary doctor or pharmacist before taking any other medication not listed, including over the counter drugs, herbal medications, vitamins and or supplements as they may interact withyour home medications. What How Much When Instructions Last Dose New clopidogrel (Plavix 75 mg oral tablet) 1 tab(s) by mouth Once a day Refills: 3 Pickup at [facility] New metoprolol (Toprol-XL 25 mg oral tablet, extended release) 1 tab(s) by mouth Once a day with a meal Refills: 3 Pickup at [facility] [address] New ramipril (ramipril 2.5 mg oral capsule) 1 cap by mouth Once a day Refills: 3 Pickup at [facility] Changed rivaroxaban (Xarelto 20 mg oral tablet) 1 tab(s) by mouth With supper Pickup at [facility] [address] Unchanged cholecalciferol (Vitamin D3) 100 Microgram by mouth Every day Unchanged ferrous sulfate (ferrous sulfate 325 mg (65 mg elemental iron) oral delayed release tablet) 1 tab(s) by mouth Once a day Unchanged insulin glargine (Lantus 100 units/ mL10 ml vial solution) 10 unit(s) Subcutaneous Once a day (in the morning) Unchanged insulin lispro (HumaLOG) (Lyumjev KwikPen 200 units/ mL subcutaneous solution) 12 unit(s) INJECT 12 units twice daily under the skin as directed with meal Unchanged ipratropium nasal (ipratropium 42 mcg/ inh (0.06%) nasal spray) 2 spray(s) use 1 to 2 (TWO) spays in the nose three times daily prior to meals to prevent nasal running OR prior to bed Unchanged levothyroxine (levothyroxine 150 mcg (0.15 mg) oral tablet) 1 tab(s) by mouth Once a day before a meal Unchanged metFORMIN (MetFORMIN (Eqv-Glucophage XR) 500 mg oral tablet, EXTENDED RELEASE) TAKE 2 TABLETS BY MOUTH EVERY DAY Unchanged pravastatin (pravastatin 40 mg oral tablet) 1 tab(s) by mouth Daily at bedtime Unchanged traMADol (traMADol 25 mg oral tablet) 2 tab(s) by mouth Every 6 hours as needed for as needed for pain not to exceed 400 mg/ day Unchanged venlafaxine (venlafaxine 225 mg oral tablet, extended release) TAKE 1 TABLET BY MOUTH EVERY DAY Pharmacy Information [id number]: [address] [place], [place] [id number] [phone] Please take this list to your next doctor s visit. Bring all medications you take, including over the counter medications, herbals and other supplements with you to your doctor s visit. Patients and families are reminded to discard old lists and to update any records with all medication providers or retail pharmacies. Medication Leaflets ramipril (DIMA i pril) Altace What is the most important information I should know about ramipril? Do not use if you are . If you become , stop taking this medicine and tell your doctor right away. You should not use ramipril if you have ever had angioedema. Do not take ramipril within 36 hours before or after taking medicine that contains sacubitril (such as Entresto). If you have diabetes, do not use ramipril together with any medication that contains aliskiren (a blood pressure medicine). What is ramipril? Ramipril is an CHRISTIAN inhibitor that is used to treat high blood pressure (hypertension). Lowering blood pressure may lower your risk of a stroke or heart attack. Ramipril is also used to treat congestive heart failure. Ramipril may also be used for purposes not listed in this medication guide. What should I discuss with my healthcare provider before taking ramipril? You should not use ramipril if you are allergic to it, or if: you recently took a heart medicine called sacubitril; or you have ever had a severe allergic reaction to any CHRISTIAN inhibitor (benazepril, captopril, enalapril, fosinopril, lisinopril, moexipril, perindopril, quinapril, or trandolapril). Do not take ramipril within 36 hours before or after taking medicine that contains sacubitril (suchas Entresto). If you have diabetes, do not use ramipril together with any medication that contains aliskiren (a blood pressure medicine). You may also need to avoid taking ramipril with aliskiren if you have kidney disease. Tell your doctor if you have ever had: kidney disease (or if you are on dialysis); an electrolyte imbalance (such as high levels of potassium in your blood); liver disease; a connective tissue disease such as Marfan syndrome, Sjogren's syndrome, lupus, scleroderma, or rheumatoid arthritis; if you are on a low-salt diet; or if you are also taking telmisartan (Micardis). Do not use if you are . If you become , stop taking this medicine and tell your doctor right away. Ramipril can cause injury or to the unborn baby if you take the medicine during your second or third trimester. You should not breast-feed while you are using ramipril. Ramipril is not approved for use by anyone younger than 18 years old. How should I take ramipril? Follow all directions on your prescription label and read all medication guides or instruction sheets. Your doctor may occasionally change your dose. Use the medicine exactly as directed. Swallow the tablet whole. Your blood pressure will need to be checked often, and you may need blood tests. Call your doctor if you have ongoing vomiting or diarrhea, or if you are sweating more than usual. You can easily become dehydrated while taking ramipril. This can lead to very low blood pressure, electrolyte disorders, or kidney failure. If you need surgery, tell the surgeon ahead of time that you are using ramipril. If you are being treated for high blood pressure, keep using this medicine even if you feel well. High blood pressure often has no symptoms. You may need to use blood pressure medication for the restof your life. Store at room temperature away from moisture, heat, and light. Keep the bottle tightly closed when not in use. What happens if I miss a dose? Take the medicine as soon as you can, but skip the missed dose if it is almost time for your next dose. Do not take two doses at one time. What happens if I overdose? Seek emergency medical attention or call the Poison Help line at . What should I avoid while taking ramipril? Avoid getting up too fast from a sitting or lying position, or you may feel dizzy. Do not use potassium supplements or salt substitutes, unless your doctor has told you to. What are the possible side effects of ramipril? Get emergency medical help if you have signs of an allergic reaction: hives; severe stomach pain; difficulty breathing; swelling of your face, lips, tongue, or throat. You may be more likely to have an allergic reaction if you are -Belarusian. Call your doctor at once if you have: a light-headed feeling, like you might pass out; jaundice (yellowing of your skin or eyes); little or no urination; fever, chills, sore throat; or high potassium--nausea, weakness, tingly feeling, chest pain, irregular heartbeats, loss of movement. Common side effects may include: headache; cough; or dizziness, weakness, tired feeling. This is not a complete list of side effects and others may occur. Call your doctor for medical advice about side effects. You may report side effects to FDA at 9-949-SKY-6136. What other drugs will affect ramipril? Tell your doctor about all your current medicines. Many drugs can affect ramipril, especially: a diuretic ('water pill'), or any other blood pressure medications; lithium; gold injections to treat arthritis; insulin or oral diabetes medicine; or NSAIDs (nonsteroidal anti-inflammatory drugs)--aspirin, ibuprofen (Advil, Motrin), naproxen (Aleve), celecoxib, diclofenac, indomethacin, meloxicam, and others. This list is not complete and many other drugs may affect ramipril. This includes prescription and pbfn-mhq-[id number] medicines, vitamins, and herbal products. Not all possible drug interactions are listed here. Where can I get more information? Your pharmacist can provide more information about ramipril. Remember, keep this and all other medicines out of the reach of children, never share your medicines with others, and use this medication only for the indication prescribed. Every effort has been made to ensure that the information provided by [employer]. ('[employer]') is accurate, up-to-date, and complete, but no guarantee is made to that effect. Drug information contained herein may be time sensitive. [employer] information has been compiled for use by healthcare practitioners and consumers in the [place] and therefore [employer] does not warrant that uses outside of the [place] are appropriate, unless specifically indicated otherwise. [employer] drug information does not endorse drugs, diagnose patients or recommend therapy. Anywhere.FM drug information isan informational resource designed to assist licensed healthcare practitioners in caring for their p atients and/or to serve consumers viewing this service as a supplement to, and not a substitute for, the expertise, skill, knowledge and judgment of healthcare practitioners. The absence of a warningfor a given drug or drug combination in no way should be construed to indicate that the drug or drug combination is safe, effective or appropriate for any given patient. [employer] does not assume any responsibility for any aspect of healthcare administered with the aid of information [employer] provides. The information contained herein is not intended to cover all possible uses, directions, precautions, warnings, drug interactions, allergic reactions, or adverse effects. If you have questions about the drugs you are taking, check with your doctor, nurse or pharmacist. Copyright 9186-5420 [employer]. Version: 15.01. Revision Date: 10/03/2018. Education Materials PACEMAKER / ICD INSERTION Discharge Instructions WOUND CARE DO NOT place any ointments, creams, powders or lotions on the incision. Call your pacemaker/ICD doctor s office immediately if you have: o Increased redness o Drainage from the incision o Opening of the incision o Increased pain, warmth or swelling on or around the site o Temperature elevation above 100.5 Call if you experience dizziness or palpitations or a fast or slow heart rate If an Aquacel Ag surgical dressing has been applied: o You may take a shower as long as the dressing is sealed well to your skin. o You may remove the bandage in 7 days: To do this, press down on your skin with one hand and carefully lift an edge of the bandage with your other hand. Stretch the dressing to break the adhesive sealand gently pull it off. o If the bandage becomes loose or falls off in less than 5 days, you will not be able to take any showers or baths. ? You must keep the incision dry for the first 5 days after your procedure. ? DO NOT clean the incision with any soap, water, peroxide or alcohol. ? Leave it dry and uncovered for 5 days, then you may shower using soap and water. o Wear loose fitting clothes over the incisional site to avoid irritation until it is healed. If you do not have a dressing: o DO NOT shower or get the incision wet for 5 days. o DO NOT clean the incision with any soap, water, peroxide or alcohol. o Leave it dry and uncovered for 5 days, then you may shower using soap and water. o Wear loose fitting clothes over the incisional site to avoid irritation until it is healed. MEDICATIONS Take antibiotics before dental work as prescribed by your physician (if prescribed) Take medications as directed until prescription is finished Avoid alcohol while taking medications You may take Tylenol (acetaminophen) for incisional pain or discomfort. ACTIVITY RESTRICTIONS DO NOT lift anything heavier than 5 lbs with the arm on the side of the Pacemaker/ICD for one month. DO NOT raise the arm on the side of the Pacemaker/ICD above shoulder level for one month. You may resume normal driving unless otherwise restricted. Driving may cause soreness at the incision site. FOLLOW UP Follow up with the Pacemaker/ICD center for routine evaluation of your device. Your appointment to have your device checked and to see the doctor in 12-14 weeks has been scheduled and is listed abovein the Follow Up section of these discharge instruction. Device Monitor Now that you have a permanent pacemaker, ICD, and/or loop recorder (all called a device ) it shouldbe checked regularly. This is done with a monitor that sends information from the device to your brazing machine setter (heart doctor) office. How will I get my monitor? The monitor will be shipped to your home within 6 weeks after you are discharged. But, if you are given the monitor before discharge, please take it home. You may get other equipment (such as a bloodpressure cuff and weight scale) shipped as well. There is no charge for this equipment. How does the monitor work? The monitor needs to be set up close to where you sleep. The monitor will automatically pickling operator heart signals and send the information to your doctor. Or you may be asked to push a button to send theinformation. What are the next steps? You will have an appointment with the nurse at the Device Clinic in about 2 weeks and the nurse will check your device (you will not see your doctor). The nurses will talk to you about the monitor atthat time. When you get the monitor, there will be clear instructions with how to set it up. Please call the Device Clinic if you have questions. [facility]: [phone] Ask for the Device Clinic or joe-in extension [phone] when prompted. Device Clinic Location: [facility] (not the physician office building). Enter the [facility] and take the elevators to the 2nd floor. Take the lee to the slight left labeled [facility] . If you are interested, you may find information about your device on the web, including videos thatwill help you understand and set up your monitor. The monitor you will get is based on the company that manufactured your device. Your device card will tell you the hypercil core transformer assembler. Using the search box: zanda: [employer] quick start o Patient Help: [employer]: [facility] quick start o Patient Help: [facility] ([place]): [email or web address] quick start o Patient Help: Other important information about your device: Always carry your device card with you. Your device may set off a metal detector. Be sure you have your device card with you if you plan togo through any area, such as an airport that may have a metal detector. Before having any test or procedure, make sure you tell the healthcare professional that you have an implanted device. IMPLANTABLE CARDIOVERTER-DEFIBRILATOR (ICD) Instructions and Precautions ELECTRICAL CONCERNS Normal household appliances like TV, refrigerator, microwave oven/stove, and small electrically powered motor appliances WILL NOT interfere with your ICD. When talking on your cell phone, hold the phone with the arm that does not have your ICD. Do not carry your cell phone in your shirt pocket! ICD DISCHARGE If you receive one shock , sit down and wait a minute. Take some slow deep breaths. If you receive further immediate shocks, remain sitting or lying down. After receiving shocks, if you have a Home Monitoring system for your ICD, please do an automated transmission and call your ICD doctor to advise them of therapies. A family member, friend, etc., should call an ambulance if you become unresponsive at any time. You should call 911 if multiple shocks occur, or if you do not feel well after 1-2 minutes from your shock. MAGNETIC CONCERNS Avoid strong magnetic gaytan, i.e.: large speakers, TV towers, magnets in race car shops. Staying 6-12 feet away is okay. Do not touch the CB radio antenna or [facility] radio antenna that are in operation. Do not touch spark plugs or distributor wires of a running car or catholic priest. Avoid the fenced enclosure areas of a radio or TV transmitting tower. Avoid machinery with magnets; industrial shops, arc welders, and race car repair areas. Avoid placing stereo speakers close to your device as they have magnets in them. MEDICAL IDENTIFICATION Carry your ICD card with you at all times. It is suggested that you provide a copy of your card to family members/significant others. PERSONAL CONTACT Should your ICD discharge while another person is touching you, that person may feel a slight muscular contraction that is not harmful. NOTIFICATION OF HEALTH PROFESSIONALS Notify your personal physician about your ICD. You must tell your surgeon or Envelope Stuffer before you undergo any procedure or surgery. This includes, but is not limited to: any surgery, colonoscopy and/or EGD s. Additional Information VACCINATE! IT SAVES LIVES! Members of the community who have not yet received the COVID-19 vaccine and would like to receive it can visit one of [facility] vaccine clinics. There are many vaccine clinic locations within the [facility]. For locations and available times, please visit [email or web address] It is important to note that some COVID mobile vaccine clinics are held outdoors and may be canceled in rainy or stormy conditions. To learn more about pediatric vaccinations (ages 5-11), we invite you to visit the [facility] webpage. https://www.[email or web address]/pages/[email or web address]-Qszzyhcxrvv-Rakrxzqrsk-Szuhr-Leh stions.htmlTo learn more about the COVID-19 vaccine, we invite you to visit the CDC website for a list of frequently asked questions.https://www.cdc.gov/coronavirus/2019-ncov/vaccines/faq.html [facility] Patient Portal Access Instructions: Stay connected with your healthcare team and access your personal medical information anytime with the [facility] Patient Portal. Please follow the directions below to create your [facility] account: 1.Access the email account you provided upon registration to the hospital/physician office.2.Look for an invitation email from [facility].3.Open the email and access the invitation link: AcceptInvitation to [facility].4.Fill in the required gaytan to create your account. To access your account, visit saraiSpool/HiLo Ticketst. Click the blue button labeled Access Patient Portal and then log in with the username and password that you created in the steps above. You will be able to view your test results, lab results, a summary of your visits, upcoming appointments and more. There is also a convenient messaging option where you can send secure messages to your Scribdvider. In addition, you will have the ability to download any documents or summaries to your computer and/or send the information securely to a physician. Remember that your healthcare information is confidential, so carefully consider who you will allowto register on the [facility] Patient Portal for access to your information. You can also access the [facility] Patient Portal on the [facility] Anywhere isabela. Simply click on Patient Portal and then log into your account. If you would like to receive a full copy of your medical records, please contact the [facility] Medical Records Department by calling [phone], Saturday through Saturday between 8 a.m. and 4:30 p.m. HOW TO SAFELY DISPOSE OF PRESCRIPTION MEDICATIONS Please use one of the following methods to safely dispose of your unused medications. 1.Use a drug disposal kit: the drug disposal pouch allows you to safely discard your old and unuseddrugs. Ask your nurse to give you one when you are discharged.2.Visit a local take-back location: Many local pharmacies and police departments have programs that collect old and unwanted prescriptiondrugs. Call your local pharmacy or go to http://bit.ly/8Q2Sx0a to find one close to you.3.Make use of household items: Use cat litter or old coffee grounds to dispose medications if other options arenot available. Mix your drugs with these household products, seal them in an airtight container andthrow it into the garbage. Call [facility]: [phone] to be sure your drugs can be disposed of in this way. Some medicines may require a different approach.4.Never flush your medications down the toilet. IF YOU HAVE BEEN PRESCRIBED AN OPIOID FOR PAIN If you have been prescribed an opioid (such as hydrocodone, oxycodone or morphine), it is critical to understand the possible side effects and risks of opioid pain medications. Even when taken as directed, opioids can have several side effects including: Tolerance, meaning you might need to take more of a medication for the same pain relief. Nausea, vomiting and/or constipation. Sleepiness, dizziness, dry mouth, confusion, depression or itching. Physical dependence, meaning you have withdrawal symptoms when a medication is stopped, can develop within a few days. KNOW YOUR RESPONSIBILITIES It is important to know exactly how much and how often to take the opioid pain medications you are prescribed. Never take opioids in higher amounts or more often than prescribed. Do not combine opioids with alcohol or other drugs that cause drowsiness, such as benzodiazepines, also known as benzos, including diazepam and alprazolam, muscle relaxants or sleep aids. Never sell or share prescription opioids. This is illegal. Store opioids in a secure place and out of reach of others (including children, family, friends and visitors). The last page of this document has been signed and retained as a CHART COPY. Signatures Patient Education Materials 3- Pacemaker/ICD New Device 07/2019(CUSTOM) Medication Leaflets ramipril My discharge plan and instructions have been reviewed and explained to me and I,ARMIN TURCIOS understand my current condition and have read and understand these discharge instructions. I have received a written copy of the plan/instructions. If I have questions, I am aware that I should contact my doctor. Patient/Lock Expert Signature: Date/Time: Relationship to Patient: Witness Name/Signature: Date/Time: Sarai [id number] Note Discharge Instructions Thank you for allowing [facility] to assist you with your healthcare needs. The following is importantdischarge information regarding your hospital visit. Your Diagnosis VT (ventricular tachycardia) What to do next Scheduled Follow-Up Appointments Appointment Type When Where Contact Information StatusCV Incision Check 07/16/2024 09:45 AM EST [facility] Confirmed CV Office Procedure ICD 09/29/2024 01:45 PM EDT [facility] Confirmed CV Remote Procedure HM 12/30/2024 06:45 PM EDT [facility] Confirmed Follow Up Appointments Follow Up with ELBA WOOD MD When:Within 5 to 7 days Where:[address] [facility] [address] [place] [address] [phone] Follow Up with SEDRICK ALEXANDER MD When:Within 5 to 7 days Where:[address] [place] [address] [phone] Follow Up with Discharge to [place] [facility] Level of Care When:Within 1-2 days Follow Up with JESSI OLGUIN MD When:Within 1-2 days Where:[facility] [address] [place] [address]- Additional Information: Please call the office to schedule a hospital follow up appointment. Follow Up with READMISSION RISK SCORE Additional Information: 11 Follow Up with INCISION CHECK When:07/16/2024 09:45 AM EST Where:[address] [address]- [phone] Follow [facility] with [facility] When:09/29/2024 01:45 PM EDT Where:[address] [place] [address]- [phone] The Following Activity and Diet Have Been Ordered for You Discharge Activity - Ordered -- Resume your pre-hospitalization activity, 07/01/24 16:53:00 EST Transfer of Care Activity - Ordered -- Activity As Tolerated, 07/01/24 13:07:00 EST Discharge Diet - Ordered -- 06/30/24 16:54:00 EST Transfer of Care Diet - Ordered -- Type of Diet: Regular Diet, 07/01/24 13:07:00 EST The Following Equipment Has Been Ordered for You No qualifying data available. The Following Treatments Have Been Ordered for You Discharge Labs No qualifying data available. Discharge Radiology No qualifying data available. Other Therapies Transfer of Care OT - Ordered -- Reason for therapy: decreased mobility, 07/01/24 13:07:00 EST Transfer of Care PT - Ordered -- Reason for therapy: decreased mobility, 07/01/24 13:07:00 EST Post Acute Orders Transfer of Care Admission Level of Care - Ordered -- Level of Care SNF, 07/01/24 13:09:17 EST Transfer of Care Code Status - Ordered -- Full Code, Constant Order Transfer of Care Communication Order - Ordered -- Expect less than 30 day stay., 07/01/24 13:09:17 EST Transfer of Care Orders Electronically Signed By - Ordered -- 07/01/24 13:07:00 EST, SEDRICK ALEXANDER MD Transfer of Care Prognosis - Ordered -- Fair, Patient Aware: Yes Transfer of Care Rehab Potential - Ordered -- Rehab potential fair, 07/01/24 13:07:45 EST Someone Will Contact You Regarding These Home Health Referrals No home referrals have been ordered for you. No one will call you. Allergies Shellfish Hives Medications Please ask your primary doctor or pharmacist before taking any other medication not listed, including over the counter drugs, herbal medications, vitamins and or supplements as they may interact withyour home medications. What How Much When Instructions Last Dose New clopidogrel (Plavix 75 mg oral tablet) 1 tab(s) by mouth Once a day Refills: 3 Pickup at [email or web address] New metoprolol (Toprol-XL 25 mg oral tablet, extended release) 1 tab(s) by mouth Once a day with a meal Refills: 3 Pickup at [email or web address] New ramipril (ramipril 2.5 mg oral capsule) 1 cap by mouth Once a day Refills: 3 Pickup at [email or web address] Changed rivaroxaban (Xarelto 20 mg oral tablet) 1 tab(s) by mouth With supper Pickup at [facility] Unchanged cholecalciferol (Vitamin D3) 100 Microgram by mouth Every day Unchanged ferrous sulfate (ferrous sulfate 325 mg (65 mg elemental iron) oral delayed release tablet) 1 tab(s) by mouth Once a day Unchanged insulin glargine (Lantus 100 units/ mL10 ml vial solution) 10 unit(s) Subcutaneous Once a day (in the morning) Unchanged insulin lispro (HumaLOG) (Lyumjev KwikPen 200 units/ mL subcutaneous solution) 12 unit(s) INJECT 12 units twice daily under the skin as directed with meal Unchanged ipratropium nasal (ipratropium 42 mcg/ inh (0.06%) nasal spray) 2 spray(s) use 1 to 2 (TWO) spays in the nose three times daily prior to meals to prevent nasal running OR prior to bed Unchanged levothyroxine (levothyroxine 150 mcg (0.15 mg) oral tablet) 1 tab(s) by mouth Once a day before a meal Unchanged metFORMIN (MetFORMIN (Eqv-Glucophage XR) 500 mg oral tablet, EXTENDED RELEASE) TAKE 2 TABLETS BY MOUTH EVERY DAY Unchanged pravastatin (pravastatin 40 mg oral tablet) 1 tab(s) by mouth Daily at bedtime Unchanged traMADol (traMADol 25 mg oral tablet) 2 tab(s) by mouth Every 6 hours as needed for as needed for pain not to exceed 400 mg/ day Unchanged venlafaxine (venlafaxine 225 mg oral tablet, extended release) TAKE 1 TABLET BY MOUTH EVERY DAY Pharmacy Information [email or web address]: [address] [place], [place] [phone] Please take this list to your next doctor s visit. Bring all medications you take, including over the counter medications, herbals and other supplements with you to your doctor s visit. Patients and families are reminded to discard old lists and to update any records with all medication providers or retail pharmacies. Additional Information VACCINATE! IT SAVES LIVES! Members of the community who have not yet received the COVID-19 vaccine and would like to receive it can visit one of [facility] vaccine clinics. There are many vaccine clinic locations within the [facility]. For locations and available times, please visit [email or web address] It is important to note that some COVID mobile vaccine clinics are held outdoors and may be canceled in rainy or stormy conditions. To learn more about pediatric vaccinations (ages 5-11), we invite you to visit the [facility] webpage. https://[email or web address]/[email or web address] [email or web address] learn more about the COVID-19 vaccine, we invite you to visit the CDC website for a list of frequently asked questions.https://www.cdc.gov/coronavirus/2019-ncov/vaccines/faq.html [facility] Patient Portal Access Instructions: Stay connected with your healthcare team and access your personal medical information anytime with the [facility] Patient Portal. Please follow the directions below to create your [facility] account: 1.Access the email account you provided upon registration to the hospital/physician office.2.Look for an invitation email from [facility].3.Open the email and access the invitation link: AcceptInvitation to [facility].4.Fill in the required gaytan to create your account. To access your account, visit [employer]/HiLo Ticketst. Click the blue button labeled Access Patient Portal and then log in with the username and password that you created in the steps above. You will be able to view your test results, lab results, a summary of your visits, upcoming appointments and more. There is also a convenient messaging option where you can send secure messages to your p rovider. In addition, you will have the ability to download any documents or summaries to your computer and/or send the information securely to a physician. Remember that your healthcare information is confidential, so carefully consider who you will allowto register on the [facility] Patient Portal for access to your information. You can also access the [facility] Patient Portal on the [employer]where isabela. Simply click on Patient Portal and then log into your account. If you would like to receive a full copy of your medical records, please contact the [facility] Medical Records Department by calling [phone], Saturday through Saturday between 8 a.m. and 4:30 p.m. HOW TO SAFELY DISPOSE OF PRESCRIPTION MEDICATIONS Please use one of the following methods to safely dispose of your unused medications. 1.Use a drug disposal kit: the drug disposal pouch allows you to safely discard your old and unuseddrugs. Ask your nurse to give you one when you are discharged.2.Visit a local take-back location: Many local pharmacies and police departments have programs that collect old and unwanted prescriptiondrugs. Call your local pharmacy or go to http://enrich-in.protected-networks.com/4D0Yz2z to find one close to you.3.Make use of household items: Use cat litter or old coffee grounds to dispose medications if other options arenot available. Mix your drugs with these household products, seal them in an airtight container andthrow it into the garbage. Call [facility]: [phone] to be sure your drugs can be disposed of in this way. Some medicines may require a different approach.4.Never flush your medications down the toilet. IF YOU HAVE BEEN PRESCRIBED AN OPIOID FOR PAIN If you have been prescribed an opioid (such as hydrocodone, oxycodone or morphine), it is critical to understand the possible side effects and risks of opioid pain medications. Even when taken as directed, opioids can have several side effects including: Tolerance, meaning you might need to take more of a medication for the same pain relief. Nausea, vomiting and/or constipation. Sleepiness, dizziness, dry mouth, confusion, depression or itching. Physical dependence, meaning you have withdrawal symptoms when a medication is stopped, can develop within a few days. KNOW YOUR RESPONSIBILITIES It is important to know exactly how much and how often to take the opioid pain medications you are prescribed. Never take opioids in higher amounts or more often than prescribed. Do not combine opioids with alcohol or other drugs that cause drowsiness, such as benzodiazepines, also known as benzos, including diazepam and alprazolam, muscle relaxants or sleep aids. Never sell or share prescription opioids. This is illegal. Store opioids in a secure place and out of reach of others (including children, family, friends and visitors). The last page of this document has been signed and retained as a CHART COPY. Signatures Patient Education Materials Medication Leaflets My discharge plan and instructions have been reviewed and explained to me and IMANNIE PHILIP understand my current condition and have read and understand these discharge instructions. I have received a written copy of the plan/instructions. If I have questions, I am aware that I should contact my doctor. Patient/Lock Expert Signature: Date/Time: Relationship to Patient: Witness Name/Signature: Date/Time: [facility] [id number] Physician Discharge summary Discharge Diagnosis Ventricular tachycardia PEA arrest Hypertension Atrial fibrillation Hospital Course Presented to [facility] on 06/24/24 after unresponsive episode during breakfast. performed CPR. EMS arrived, delivered 1 shock with ROSC. Reported rhythm was PEA on documentation. Initial labs show stable Cr 1.01, K 3.9, 1.9. Troponin 400's Documentation states is doubting this was cardiac arrest. Patient noted to have telemetry strips showing wide complex tachycardia concerning for VTach. Cardiology Dr. Chavez consulted, concerned for Vtach. Echo showed preserved EF 60%. Patient underwent [facility] s/p PCI/KESHIA to RCA on 06/25/24. Documentation on 06/27/24 morning states that code blue was called for sustained Vtach with a pulse.Initial episode self resolved, 2nd and 3rd episodes patient was defibrillated. Started on IV amiodarone and transferred to [facility] for further evaluation and management. EP was consulted, patient warranted ICD for secondary prevention. Patient tolerated procedure well without any periprocedural complications, postprocedural x-ray didnot reveal any pneumothorax. Patient will follow-up with EP for potential cardioversion and sotalol. Allergies Shellfish Hives Procedures ICD placement Consults Consult to Physician - Ordered -- 06/27/24 12:36:00 ISRAEL HEBERT FIRAS M A MD, Routine, vtach Consult to Physician - Ordered -- 06/27/24 12:41:00 ALEXANDER HEBERT ANDY A MD, Routine, ?hypoxia, transferred from [place], they were treating for sepsis/pneumonia Consult to Spiritual Care Team (Consult to Pastoral Care) - Ordered -- 06/27/24 12:57:22 EST Consult to Tobacco Sheet Metal Superintendent - Ordered -- 06/27/24 12:49:00 EST, Once Objective Vitals and Measurements Weight Current Weight Dosing Weight: 110.5 kg (06/27/24) Current Weight: 111.9 kg (06/30/24) Current Weight: 109.2 kg (06/29/24) General Appearance: NAD Head: NCAT EENT: no gross abnormalities Neck: no JVD appreciated Cardiac: NS1S2 Lungs: CTAB Abdomen: soft, NT/ND Musculoskeletal: ROM wnl Extremities: no pitting edema Neurological: no focal deficits Skin: warm, dry Psychiatric: normal mentation Code Status Code Status - Ordered -- 06/27/24 12:09:00 EST, Full Code, Constant Order Medications New Prescription clopidogrel (Plavix 75 mg oral tablet)1 tab(s) by mouth once a day. Refills: 3. metoprolol (Toprol-XL 25 mg oral tablet, extended release)1 tab(s) by mouth once a day with a meal.Refills: 3. ramipril (ramipril 2.5 mg oral capsule)1 cap by mouth once a day. Refills: 3. Changed rivaroxaban (Xarelto 20 mg oral tablet)1 tab(s) by mouth with supper. Refills: 3. Unchanged cholecalciferol (Vitamin D3)100 Microgram by mouth every day. ferrous sulfate (ferrous sulfate 325 mg (65 mg elemental iron) oral delayed release tablet)1 tab(s)by mouth once a day. insulin glargine (Lantus 100 units/mL10 ml vial solution)10 unit(s) Subcutaneous once a day (in themorning). insulin lispro (HumaLOG) (Lyumjev KwikPen 200 units/mL subcutaneous solution)12 unit(s). INJECT 12 units twice daily under the skin as directed with meal. ipratropium nasal (ipratropium 42 mcg/inh (0.06%) nasal spray)2 spray(s). use 1 to 2 (TWO) spays inthe nose three times daily prior to meals to prevent nasal running OR prior to bed. levothyroxine (levothyroxine 150 mcg (0.15 mg) oral tablet)1 tab(s) by mouth once a day before a meal. metFORMIN (MetFORMIN (Eqv-Glucophage XR) 500 mg oral tablet, EXTENDED RELEASE)TAKE 2 TABLETS BY MOUTH EVERY DAY. pravastatin (pravastatin 40 mg oral tablet)1 tab(s) by mouth daily at bedtime. traMADol (traMADol 25 mg oral tablet)2 tab(s) by mouth every 6 hours as needed as needed for pain. not to exceed 400 mg/day. venlafaxine (venlafaxine 225 mg oral tablet, extended release)TAKE 1 TABLET BY MOUTH EVERY DAY. Follow Up Follow Up with ELBA WOOD MD When:Within 5 to 7 days Where:[address] [address] [phone] Follow Up with SEDRICK ALEXANDER MD When:Within 5 to 7 days Where:[address] [address] [phone] Follow Up with Discharge to [place] [facility] Level of Care When:Within 1-2 days Follow Up with JESSI OLGUIN MD When:Within 1-2 days [facility] [address] [place] [address]- Additional Information: Please call the office to schedule a hospital follow up appointment. Follow Up with READMISSION RISK SCORE Additional Information: 11 Follow Up with INCISION CHECK When:07/16/2024 09:45 AM EST Where:[address] [address] [phone] [facility] with [facility] When:09/29/2024 01:45 PM EDT Where:[address] [address] [phone] Follow Up Appointments Transfer of Care OT - Ordered -- Reason for therapy: decreased mobility, 07/01/24 13:07:00 EST Transfer of Care PT - Ordered -- Reason for therapy: decreased mobility, 07/01/24 13:07:00 EST Follow Up Labs/Studies Discharge Labs No Follow-up Labs Discharge Studies No Follow-up Studies Discharge Diet Discharge Diet - Ordered -- 06/30/24 16:54:00 EST Transfer of Care Diet - Ordered -- Type of Diet: Regular Diet, 07/01/24 13:07:00 EST Discharge Activity Discharge Activity - Ordered -- Resume your pre-hospitalization activity, 07/01/24 16:53:00 EST Transfer of Care Activity - Ordered -- Activity As Tolerated, 07/01/24 13:07:00 EST Readmission Risk/Palliative Score LACE Score: 11 (06/29/24 07:45:00) Palliative Total Score: 1 (06/29/24 07:46:00) Digitally Signed by ANT JACKSON MD on 07/01/2024 01:09 PM [facility] [id number] Nurse Progress note ACNS documentation has been reviewed and all medications were verified prior to administration. Digitally Signed by Jannie Forbes Director [place] on 07/01/2024 12:23 PM [facility] [id number] Cardiology Progress note Subjective No acute overnight events, denies chest pain or dyspnea Intake and Output 7AM Yesterday to 7AM Today Intake and Output (Last 24 hours) Intake Administration Information 561.92 Oral Intake 1050.00 Output Urine Voided 900.00 Intra-Op EBL 5.00 Stool Count 2.00 Total Summary Total Intake 1611.92 Total Output 905.00 Fluid Balance 706.92 Physical Exam General Appearance: NAD Head: NCAT EENT: no gross abnormalities Neck: no JVD appreciated Cardiac: NS1S2 Lungs: CTAB Abdomen: soft, NT/ND Musculoskeletal: ROM wnl Extremities: no pitting edema Neurological: no focal deficits Skin: warm, dry Psychiatric: normal mentation Weight Current Weight Dosing Weight: 110.5 kg (06/27/24) Current Weight: 111.9 kg (06/30/24) Current Weight: 109.2 kg (06/29/24) Medications Medications (44) Active Scheduled: (23) albuterol - ipratropium 2.5 mg-0.5 mg/3 mL Inhal Amrita UD 3 mL, Inhalation, QIDRT ammonium lactate Lotion 12% 1 isabela, Topical, BID aspirin 81 mg Chewable 81 mg 1 tab(s), Oral, qDayM atorvastatin 40 mg tablet 40 mg 1 tab(s), Oral, qHS budesonide 0.5 mg/2 mL Susp UD 0.5 mg 2 mL, Inhalation, BIDRT clopidogrel 75 mg Tablet 75 mg 1 tab(s), Oral, qDay ferrous sulfate 325 mg Tablet 325 mg 1 tab(s), Oral, qDay insulin glargine 18 unit(s) 0.18 mL, Subcutaneous (INT), qHS insulin lispro 100 units/mL Soln (3 mL) Give 0-15 units/dose, Subcutaneous, TIDAC insulin lispro 100 units/mL Soln (3 mL) 5 unit(s) 0.05 mL, Subcutaneous, with lunch insulin lispro 100 units/mL Soln (3 mL) 5 unit(s) 0.05 mL, Subcutaneous, with breakfast insulin lispro 100 units/mL Soln (3 mL) 5 unit(s) 0.05 mL, Subcutaneous, with supper ipratropium 42 mcg/inh nasal spray (0.06%) 15 mL bottle 84 mcg 2 spray(s), Intranasal, TID levothyroxine 150 mcg tablet 150 mcg 1 tab(s), Oral, qDayAC lidocaine patch REMOVAL 1 EA, Miscellaneous, q24h lidocaine topical 4% patch 1 patch(es), Transdermal, q24h metoprolol succinate 25 mg ER tablet 25 mg 1 tab(s), Oral, qDayM No metformin for 48 hrs post contrast 1 EA, Miscellaneous, Unscheduled No metformin for 48 hrs post contrast 1 EA, Miscellaneous, Unscheduled pantoprazole 40 mg EC tablet 40 mg 1 tab(s), Oral, qDayAC polyethylene glycol 3350 - UD packet 17 gram(s) 15 mL, Oral, qDay ramipril 2.5 mg Capsule 2.5 mg 1 cap(s), Oral, qDay senna 8.6 mg Tablet 8.6 mg 1 tab(s), Oral, BID Continuous: (2) amiodarone 450 mg [0.5 mg/min] + sodium chloride MARYAM 250 mL 250 mL, Intravenous, 16.67 mL/hr heparin 25,000 unit(s) + Dextrose 5% Premix Diluent 250 mL 250 mL, Intravenous, 10 mL/hr PRN: (19) acetaminophen 325 mg Tablet 650 mg 2 tab(s), Oral, q4h acetaminophen 325 mg Tablet 650 mg 2 tab(s), Oral, Once acetaminophen-HYDROcodone 325-5 mg tablet 1 tab(s), Oral, q4h albuterol - ipratropium 2.5 mg-0.5 mg/3 mL Inhal Amrita UD 3 mL, Inhalation, q2hRT dextrose 50% Solution Disp syringe 50 mL 12.5 gram(s) 25 mL, IV Push, AsDirected heparin 5,000 units/mL (1 mL) vial 4,000 unit(s) 0.8 mL, IV Push, q6h magnesium sulfate 4 gram(s)/100mL PMX 4 g 100 mL, IV Piggyback, AsDirected magnesium sulfate 50% (500mg/mL) 6 g 12 mL, IV Piggyback, AsDirected magnesium sulfate PMX 2 g 50 mL, IV Piggyback, AsDirected methocarbamol 500 mg Tablet 500 mg 1 tab(s), Oral, TID morphine 2 mg/mL 1 mL syringe 1 mg 0.5 mL, IV Push, q1h morphine 2 mg/mL 1 mL syringe 2 mg 1 mL, IV Push, q4h nitroglycerin 0.4 mg Tablet (25/btl) 0.4 mg 1 tab(s), Sublingual, q5min potassium chloride (PMX) 20 mEq/100 mL 20 mEq 100 mL, IV Piggyback, AsDirected potassium chloride 20 mEq ER tablet 20 mEq 1 tab(s), Oral, AsDirected potassium chloride 20 mEq ER tablet 40 mEq 2 tab(s), Oral, AsDirected potassium chloride 20 mEq ER tablet 40 mEq 2 tab(s), Oral, AsDirected tramadol 50 mg Tablet 50 mg 1 tab(s), Oral, q6h trimethobenzamide 200 mg/2 mL Solution 200 mg 2 mL, Intramuscular, q6h Lab Results 07/01 02:50 WBC: 9.2 Hgb: 10.5 L Hct: 31.2 L Platelet: See Comment 4 Neutrophil %: 76.0 H Glucose Level: 187 H Sodium Level: 139 Potassium Level: 4.0 BUN: 18.0 Creatinine Lvl (s): 0.83 06/30 03:38 WBC: 8.3 Hgb: 10.5 L Hct: 30.1 L Platelet: See Comment Glucose Level: 243 H Sodium Level: 137 Potassium Level: 4.2 BUN: 20.0 Creatinine Lvl (s): 0.84 EKG Electrocardiogram (EKG) - Ordered -- 06/30/24 17:18:00 EST Electrocardiogram - InProcess -- 07/01/24 6:00:00 EST Electrocardiogram - Ordered -- 07/01/24 6:00:00 EST Assessment/Plan Orders: ramipril, 2.5 mg= 1 cap(s), Oral, qDay Unresponsive Episode: Syncope versus out of hospital Cardiac Arrest Wide Complex Tachycardia - concerning for VTach PVCs CAD s/p PCI to RCA Acute on Chronic HFpEF AFIB - current in afib B/l blindness Hypothyroidism 74M with hx of afib, HFpEF, DM, hyperlipidemia, 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 performed CPR. EMS arrived, delivered 1 shock with ROSC. Reported rhythm was PEA on documentation. Initial labs show stable Cr 1.01, K 3.9, 1.9. Troponin 400's Documentation states is doubting this was cardiac arrest. Patient noted to have telemetry strips showing wide complex tachycardia concerning for VTach. Cardiology Dr. Chavez consulted, concerned for Vtach. Echo showed preserved EF 60%. Patient underwent [facility] s/p PCI/KESHIA to RCA on 06/25/24. Documentation on 06/27/24 morning states that code blue was called for sustained Vtach with a pulse.Initial episode self resolved, 2nd and 3rd episodes patient was defibrillated. Started on IV amiodarone. Currently patient reports his body is sore, especially his chest and ribs from CPR/defibrillation. CXR here shows pulmonary edema. Impression / Plan: Patient has concerning wide complex tachyarrhythmia suspected to be VTach causing syncope versus cardiac arrest. Current rhythm is afib with frequent PVCs Continue amiodarone drip Heparin drip for afib Aspirin, plavix for recent PCI/KESHIA Stat labs ordered Patient nearing euvolemia, will discontinue IV Lasix. 2D TTE personally reviewed, EF is 50 to 55% without any regional wall motion abnormalities, right atrial pressure approximately 8 mm per mercury. Is euvolemic today Status post AICD yesterday on 06/30. No periprocedural complications. No procedural pneumothorax. Patient is medically stable for discharge. Currently on IV amiodarone, will discuss with EP regarding oral continuation and NOAC therapy resumption. Disposition: Placement to be arranged by social work Digitally Signed by ANT JACKSON MD on 07/01/2024 12:22 PM [facility] [id number] Note Date of Service 07/01/2024 10:39:18 Chief Complaint weakness Subjective 74-year-old male with medical history of IDDM 2, bilateral legal blindness, COPD, no home oxygen requirements, hypothyroidism, depression, chronic iron deficiency anemia, HFpEF, hyperlipidemia, atrial fibrillation on chronic Xarelto. Patient presents to the hospital for [id number] cardiac arrest patient was in V. tach transferred to [facility] patient initiated on amiodarone and heparin drip. Patient seen by cardiologywas felt to be fluid overloaded initiated on diuretic therapy. After further workup concern for wide-complex tachycardia and V. tach. Electrophysiology has been consulted for possible permanent pacemaker placement. Internal medicine was consulted for diabetic management along with medical management. Patient today 07/01 has had significant improvement with subjective shortness of breath and cough. Adjustments of DuoNeb therapy with the addition of budesonide yesterday seem to have improved respiratory status. Patient also underwent permanent pacemaker placement tolerated procedure well. Imaging shows no concerning signs for infection or aspiration. Antibiotics will be continued to be held. Patient's glucose stable at this time would not adjust further recommend disposition with current dosing of insulin therapy. At this time nothing further to add from medical team will sign off. Objective Vitals and Measurements T: 36.9 C (Oral) TMIN: 34.72 C TMAX: 36.9 C (Oral) HR: 70 (Apical) RR: 18 BP: 146/64 SpO2: 96% Intake and Output 7AM Yesterday to 7AM Today Intake and Output (Last 24 hours) Intake Administration Information 561.92 Oral Intake 1050.00 Output Urine Voided 900.00 Intra-Op EBL 5.00 Stool Count 2.00 Total Summary Total Intake 1611.92 Total Output 905.00 Fluid Balance 706.92 Physical Exam Exam: CVS: regular rate and rhythm Lungs: minimal crackles present on examination Abdomen: soft, non distended NT GOLD LAYER: Alert, No focal deficits identified. aaox3. Blind Skin: No visible rashes or Lesions pacer placement site CDI Weight Current Weight Dosing Weight: 110.5 kg (06/27/24) Current Weight: 111.9 kg (06/30/24) Current Weight: 109.2 kg (06/29/24) Medications Medications (44) Active Scheduled: (23) albuterol - ipratropium 2.5 mg-0.5 mg/3 mL Inhal Amrita UD 3 mL, Inhalation, QIDRT ammonium lactate Lotion 12% 1 isabela, Topical, BID aspirin 81 mg Chewable 81 mg 1 tab(s), Oral, qDayM atorvastatin 40 mg tablet 40 mg 1 tab(s), Oral, qHS budesonide 0.5 mg/2 mL Susp UD 0.5 mg 2 mL, Inhalation, BIDRT clopidogrel 75 mg Tablet 75 mg 1 tab(s), Oral, qDay ferrous sulfate 325 mg Tablet 325 mg 1 tab(s), Oral, qDay insulin glargine 18 unit(s) 0.18 mL, Subcutaneous (INT), qHS insulin lispro 100 units/mL Soln (3 mL) 5 unit(s) 0.05 mL, Subcutaneous, with lunch insulin lispro 100 units/mL Soln (3 mL) Give 0-15 units/dose, Subcutaneous, TIDAC insulin lispro 100 units/mL Soln (3 mL) 5 unit(s) 0.05 mL, Subcutaneous, with breakfast insulin lispro 100 units/mL Soln (3 mL) 5 unit(s) 0.05 mL, Subcutaneous, with supper ipratropium 42 mcg/inh nasal spray (0.06%) 15 mL bottle 84 mcg 2 spray(s), Intranasal, TID levothyroxine 150 mcg tablet 150 mcg 1 tab(s), Oral, qDayAC lidocaine patch REMOVAL 1 EA, Miscellaneous, q24h lidocaine topical 4% patch 1 patch(es), Transdermal, q24h metoprolol succinate 25 mg ER tablet 25 mg 1 tab(s), Oral, qDayM No metformin for 48 hrs post contrast 1 EA, Miscellaneous, Unscheduled No metformin for 48 hrs post contrast 1 EA, Miscellaneous, Unscheduled pantoprazole 40 mg EC tablet 40 mg 1 tab(s), Oral, qDayAC polyethylene glycol 3350 - UD packet 17 gram(s) 15 mL, Oral, qDay ramipril 2.5 mg Capsule 2.5 mg 1 cap(s), Oral, qDay senna 8.6 mg Tablet 8.6 mg 1 tab(s), Oral, BID Continuous: (2) amiodarone 450 mg [0.5 mg/min] + sodium chloride MARYAM 250 mL 250 mL, Intravenous, 16.67 mL/hr heparin 25,000 unit(s) + Dextrose 5% Premix Diluent 250 mL 250 mL, Intravenous, 10 mL/hr PRN: (19) acetaminophen 325 mg Tablet 650 mg 2 tab(s), Oral, q4h acetaminophen 325 mg Tablet 650 mg 2 tab(s), Oral, Once acetaminophen-HYDROcodone 325-5 mg tablet 1 tab(s), Oral, q4h albuterol - ipratropium 2.5 mg-0.5 mg/3 mL Inhal Amrita UD 3 mL, Inhalation, q2hRT dextrose 50% Solution Disp syringe 50 mL 12.5 gram(s) 25 mL, IV Push, AsDirected heparin 5,000 units/mL (1 mL) vial 4,000 unit(s) 0.8 mL, IV Push, q6h magnesium sulfate 4 gram(s)/100mL PMX 4 g 100 mL, IV Piggyback, AsDirected magnesium sulfate 50% (500mg/mL) 6 g 12 mL, IV Piggyback, AsDirected magnesium sulfate PMX 2 g 50 mL, IV Piggyback, AsDirected methocarbamol 500 mg Tablet 500 mg 1 tab(s), Oral, TID morphine 2 mg/mL 1 mL syringe 1 mg 0.5 mL, IV Push, q1h morphine 2 mg/mL 1 mL syringe 2 mg 1 mL, IV Push, q4h nitroglycerin 0.4 mg Tablet (25/btl) 0.4 mg 1 tab(s), Sublingual, q5min potassium chloride (PMX) 20 mEq/100 mL 20 mEq 100 mL, IV Piggyback, AsDirected potassium chloride 20 mEq ER tablet 20 mEq 1 tab(s), Oral, AsDirected potassium chloride 20 mEq ER tablet 40 mEq 2 tab(s), Oral, AsDirected potassium chloride 20 mEq ER tablet 40 mEq 2 tab(s), Oral, AsDirected tramadol 50 mg Tablet 50 mg 1 tab(s), Oral, q6h trimethobenzamide 200 mg/2 mL Solution 200 mg 2 mL, Intramuscular, q6h Lab Results 07/01 02:50 WBC: 9.2 Hgb: 10.5 L Hct: 31.2 L Platelet: See Comment 4 Neutrophil %: 76.0 H Glucose Level: 187 H Sodium Level: 139 Potassium Level: 4.0 BUN: 18.0 Creatinine Lvl (s): 0.83 06/30 03:38 WBC: 8.3 Hgb: 10.5 L Hct: 30.1 L Platelet: See Comment Glucose Level: 243 H Sodium Level: 137 Potassium Level: 4.2 BUN: 20.0 Creatinine Lvl (s): 0.84 EKG Electrocardiogram (EKG) - Ordered -- 06/30/24 17:18:00 EST Electrocardiogram - InProcess -- 07/01/24 6:00:00 EST Electrocardiogram - Ordered -- 07/01/24 6:00:00 EST Assessment/Plan Acute hypoxic respiratory failure Continue oxygen supplementation Repeat chest x-ray with no concerning infectious findings No abx needed Cardiogenic pulmonary edema Patient previously was undergoing diuresis Patient appears relatively euvolemic at this moment Hyperglycemia with history of type 2 diabetes mellitus stable, continue current insulins at DC Nausea Improved continue Tigan as needed Slow transit constipation MiraLAX and senna Wide-complex tachycardia, concerning for V. tach s/p pacemaker placement Amiodarone drip Atrial fibrillation, currently rate controlled, known history Anticoagulation heparin drip CAD status post PCI to RCA 06/25/2024 DAPT Goal-directed medical therapy CODE STATUS: Full code Will sign off please call for questions Digitally Signed by DHIRAJ KIM MD on 07/01/2024 10:44 AM [facility] [id number] Note* Exam Date Time Procedure Performing Provider Status 07/01/24 9:36 AM XR Chest 2 Views ALEJANDRO CARRENO MD; [facility] (Verified) [id number] ORIGINAL EXAMINATION: TWO XRAY VIEWS OF THE CHEST 07/01/2024 9:36 am COMPARISON: June 30, 2024 HISTORY: ORDERING SYSTEM PROVIDED HISTORY: Reason for Exam: Evaluate for pneumothorax/lead position post pacer/ICD insertion FINDINGS: Pacemaker unit and wires are unchanged in position since the previous exam. Wires terminate at the right atrium and the right ventricle. No pneumothorax is visible. Cardiomegaly is present without vascular congestion. Small right and left pleural effusions are present. Elevation left hemidiaphragm, stable. No definite pneumothorax is visible. Minor degenerative changes are noted in the spine. IMPRESSION: No pneumothorax post pacemaker placement. Small pleural effusions. Interpreted by: Alejandro Carreno MD Preliminary Report By: Alejandro Carreno MD Electronically signed By Alejandro Carreno MD Dictated Date: 07/01/2024 9:39:47 AM Prelim Date: 07/01/2024 9:40:30 AM Sign Date: 07/01/2024 9:40:30 AM Ordering Provider: MORA SORIA [facility] [id number] Note. MICRO - Microbiology PROCEDURE: Legionella Urine Ag [*1] SOURCE: Urine BODY SITE: COLLECTED DATE/TIME: 06/30/2024 21:14 EST RECEIVED DATE/TIME: 06/30/2024 21:46 EST START DATE/TIME: 06/30/2024 21:46 EST FREE TEXT SOURCE: FINAL REPORTS Final Report [] Verified Date/Time/Personnel: 06/30/2024 22:01 EST Presumptive negative for L. pneumophila serogroup 1 antigen in urine, suggesting no recent or current infection. Legionnaire's disease cannot be ruled out since other serogroups and species may also cause disease. Performing Locations *1: This test was performed at: [address], [facility], [facility] , [facility]01-28-2025 Note* Exam Date Time Procedure Performing Provider Status 06/30/24 6:18 PM XR Chest 1 View Contributor_system, ANTONIO JI; Auth (Verified) [id number] ORIGINAL EXAMINATION: ONE XRAY VIEW OF THE CHEST06/30/2024 6:18 pm COMPARISON: Same day chest radiograph at 11:25 a.m. HISTORY: ORDERING SYSTEM PROVIDED HISTORY: Reason for Exam: Evaluate for pneumothorax/lead position post pacer/ICD insertion FINDINGS: Stable enlargement of the cardiomediastinal silhouette and elevation of the left hemidiaphragm. Aeration of the lungs is overall similar to the prior exam given difference technique and semi upright position. Suspect similar trace left effusion over the elevated left hemidiaphragm with overlying airspace opacities/atelectasis. No pneumothorax. Interval placement of left-sided ICD with leads terminating over the expected area of the right atrium and right ventricle. IMPRESSION: Interval placement of left-sided ICD with leads terminating over the expected area of the right atrium and right ventricle. No pneumothorax. No significant interval change in lung aeration. Preliminary Report was Dictated by a Resident I have personally reviewed all of the images of this examination and agree with the resident findings and interpretation. Interpreted by: Wood Putnam MD Preliminary Report By: Alejandro Hudson Electronically signed By Wood Putnam MD Dictated Date: 06/30/2024 6:25:39 PM Prelim Date: 06/30/2024 6:28:30 PM Sign Date: 06/30/2024 8:46:51 PM Ordering Provider: [id number] Cardiology Progress note Subjective No acute overnight events, patient denies chest pain or dyspnea currently Objective Vitals and Measurements T: 36.4 C (Oral) TMIN: 36.3 C (Oral) TMAX: 36.7 C (Oral) HR: 60 RR: 16 BP: 110/86 SpO2: 95% WT: 111.9 kg Intake and Output 7AM Yesterday to 7AM Today Intake and Output (Last 24 hours) Intake Oral Intake 50.00 Output Urinary Catheter Output: 200.00 Urine Count 1.00 Total Summary Total Intake 50.00 Total Output 200.00 Fluid Balance -150.00 Physical Exam General Appearance: NAD Head: NCAT EENT: no gross abnormalities Neck: no JVD appreciated Cardiac: NS1S2 Lungs: CTAB Abdomen: soft, NT/ND Musculoskeletal: ROM wnl Extremities: no pitting edema Neurological: no focal deficits Skin: warm, dry Psychiatric: normal mentation Weight Current Weight Dosing Weight: 110.5 kg (06/27/24) Current Weight: 111.9 kg (06/30/24) Current Weight: 109.2 kg (06/29/24) Medications Medications (36) Active Scheduled: (21) albuterol - ipratropium 2.5 mg-0.5 mg/3 mL Inhal Amrita UD 3 mL, Inhalation, QIDRT ammonium lactate Lotion 12% 1 isabela, Topical, BID aspirin 81 mg Chewable 81 mg 1 tab(s), Oral, qDayM atorvastatin 40 mg tablet 40 mg 1 tab(s), Oral, qHS budesonide 0.5 mg/2 mL Susp UD 0.5 mg 2 mL, Inhalation, BIDRT clopidogrel 75 mg Tablet 75 mg 1 tab(s), Oral, qDay ferrous sulfate 325 mg Tablet 325 mg 1 tab(s), Oral, qDay insulin glargine 18 unit(s) 0.18 mL, Subcutaneous (INT), qHS insulin lispro 100 units/mL Soln (3 mL) Give 0-15 units/dose, Subcutaneous, TIDAC insulin lispro 100 units/mL Soln (3 mL) 5 unit(s) 0.05 mL, Subcutaneous, with lunch insulin lispro 100 units/mL Soln (3 mL) 5 unit(s) 0.05 mL, Subcutaneous, with breakfast insulin lispro 100 units/mL Soln (3 mL) 5 unit(s) 0.05 mL, Subcutaneous, with supper ipratropium 42 mcg/inh nasal spray (0.06%) 15 mL bottle 84 mcg 2 spray(s), Intranasal, TID levothyroxine 150 mcg tablet 150 mcg 1 tab(s), Oral, qDayAC lidocaine patch REMOVAL 1 EA, Miscellaneous, q24h lidocaine topical 4% patch 1 patch(es), Transdermal, q24h metoprolol succinate 25 mg ER tablet 25 mg 1 tab(s), Oral, qDayM pantoprazole 40 mg EC tablet 40 mg 1 tab(s), Oral, qDayAC polyethylene glycol 3350 - UD packet 17 gram(s) 15 mL, Oral, qDay senna 8.6 mg Tablet 8.6 mg 1 tab(s), Oral, BID vancomycin PMX 1,750 mg 500 mL, IV Piggyback, PREOP pharm Continuous: (2) amiodarone 450 mg [0.5 mg/min] + sodium chloride MARYAM 250 mL 250 mL, Intravenous, 16.67 mL/hr heparin 25,000 unit(s) + Dextrose 5% Premix Diluent 250 mL 250 mL, Intravenous, 10 mL/hr PRN: (13) albuterol - ipratropium 2.5 mg-0.5 mg/3 mL Inhal Amrita UD 3 mL, Inhalation, q2hRT dextrose 50% Solution Disp syringe 50 mL 12.5 gram(s) 25 mL, IV Push, AsDirected heparin 5,000 units/mL (1 mL) vial 4,000 unit(s) 0.8 mL, IV Push, q6h magnesium sulfate 4 gram(s)/100mL PMX 4 g 100 mL, IV Piggyback, AsDirected magnesium sulfate 50% (500mg/mL) 6 g 12 mL, IV Piggyback, AsDirected magnesium sulfate PMX 2 g 50 mL, IV Piggyback, AsDirected methocarbamol 500 mg Tablet 500 mg 1 tab(s), Oral, TID potassium chloride (PMX) 20 mEq/100 mL 20 mEq 100 mL, IV Piggyback, AsDirected potassium chloride 20 mEq ER tablet 20 mEq 1 tab(s), Oral, AsDirected potassium chloride 20 mEq ER tablet 40 mEq 2 tab(s), Oral, AsDirected potassium chloride 20 mEq ER tablet 40 mEq 2 tab(s), Oral, AsDirected tramadol 50 mg Tablet 50 mg 1 tab(s), Oral, q6h trimethobenzamide 200 mg/2 mL Solution 200 mg 2 mL, Intramuscular, q6h Lab Results 06/30 03:38 WBC: 8.3 Hgb: 10.5 L Hct: 30.1 L Platelet: See Comment Glucose Level: 243 H Sodium Level: 137 Potassium Level: 4.2 BUN: 20.0 Creatinine Lvl (s): 0.84 06/29 03:42 WBC: 7.7 Hgb: 10.5 L Hct: 30.7 L Platelet: 92 L Neutrophil %: 71.6 Glucose Level: 235 H Sodium Level: 138 Potassium Level: 3.6 BUN: 17.0 Creatinine Lvl (s): 0.77 EKG No qualifying data available. Assessment/Plan Orders: amiodarone 450 mg [0.5 mg/min] + Sodium Chloride 0.9% intravenous solution 250 mL(Amiodarone for IV450 mg [0.5 mg/min] + NS 250 mL), Start: 06/27/24 12:36:00 EST, STAT, Rate: 16.67 mL/hr, 06/27/24 12:36:00 EST ammonium lactate topical(ammonium lactate 12% topical lotion), 1 isabela, Topical, BID metoprolol(Toprol-XL), 25 mg= 1 tab(s), Oral, qDayM Communication Order (continuous), 06/29/24 14:16:00 EST, Re-consult skin team if wound deteriorates, or for new skin integrity impairments, Constant order Cushion Waffle 17x17 Chair Medium, Valveless ([id number])(Waffle Cushion Chair Medium ([id number])), 06/29/24 14:17:00 EST, Quantity 1, Weight: 110.5, 06/29/24 14:17:00 EST Hydrofiber Aquacel Silver Dressing ([id number]), 06/29/24 14:17:00 EST, Quantity 2, Weight: 110.5, 06/29/24 14:17:00 EST Wound Care, 06/29/24 14:16:00 EST, Site: Ankle, left, Cleanse with: Normal saline, Apply to Wound Bed: Aquacel AG 4x4, Cover with: Foam dressing, q3day, Cut Aquacel AG to fit Change PRN if impaired Unresponsive Episode: Syncope versus out of hospital Cardiac Arrest Wide Complex Tachycardia - concerning for VTach PVCs CAD s/p PCI to RCA Acute on Chronic HFpEF AFIB - current in afib B/l blindness Hypothyroidism 74M with hx of afib, HFpEF, DM, hyperlipidemia, 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 performed CPR. EMS arrived, delivered 1 shock with ROSC. Reported rhythm was PEA on documentation. Initial labs show stable Cr 1.01, K 3.9, 1.9. Troponin 400's Documentation states is doubting this was cardiac arrest. Patient noted to have telemetry strips showing wide complex tachycardia concerning for VTach. Cardiology Dr. Chavez consulted, concerned for Vtach. Echo showed preserved EF 60%. Patient underwent [facility] s/p PCI/KESHIA to RCA on 06/25/24. Documentation on 06/27/24 morning states that code blue was called for sustained Vtach with a pulse.Initial episode self resolved, 2nd and 3rd episodes patient was defibrillated. Started on IV amiodarone. Currently patient reports his body is sore, especially his chest and ribs from CPR/defibrillation. CXR here shows pulmonary edema. Impression / Plan: Patient has concerning wide complex tachyarrhythmia suspected to be VTach causing syncope versus cardiac arrest. Current rhythm is afib with frequent PVCs Continue amiodarone drip Heparin drip for afib Aspirin, plavix for recent PCI/KESHIA Stat labs ordered Patient nearing euvolemia, will discontinue IV Lasix. 2D TTE personally reviewed, EF is 50 to 55% without any regional wall motion abnormalities, right atrial pressure approximately 8 mm per mercury. Is euvolemic today Telemetry monitoring EP consult for ICD consideration Hospitalist consulted for DM and other medicine issues Scheduled for AICD today per EP. Digitally Signed by ANT JACKSON MD on 06/30/2024 12:22 PM [id number] Anesthesiology Consult note Patient: ARMIN TURCIOS Age: 74 years Sex: Male : 1950 Associated Diagnoses: None Author: GENARO LAL DO Preoperative Information Greater than 6 hours Anesthesia history Patient's history: negative. Family's history: negative. Review of Systems Ear/Nose/Mouth/Throat: Negative except as documented in history of present illness. Respiratory: Negative except as documented in history of present illness. Cardiovascular: Negative except as documented in history of present illness, CAD, VT for CRTD. Gastrointestinal: Negative except as documented in history of present illness. Genitourinary: Negative except as documented in history of present illness. Endocrine: Negative except as documented in history of present illness. Musculoskeletal: Negative except as documented in history of present illness. Integumentary: Negative except as documented in history of present illness. Neurologic: Negative except as documented in history of present illness. Health Status Allergies: Allergic Reactions (Selected) Severity Not Documented Shellfish- Hives., Allergies (1) ActiveSeverityReaction ShellfishHives Current medications: (Selected) Inpatient Medications Ordered Amiodarone for IV 450 mg [0.5 mg/min] + NS 250 mL: 16.67 mL/hr, Intravenous Dextrose 50% IV Push: 12.5 gram(s), 25 mL, IV Push, AsDirected, PRN: Hypoglycemia DuoNeb: 3 mL, Inhalation, QIDRT DuoNeb: 3 mL, Inhalation, q2hRT, PRN: Shortness of breath or wheezing Heparin HBW CARDIAC Bolus 5000 units/mL: 4,000 unit(s), 0.8 mL, IV Push, q6h, PRN: Protocol, WeightBased Heparin Heparin for IV 25,000 unit(s) + Dextrose 5% Premix Diluent 250 mL: 10 mL/hr, Intravenous HumaLOG 100 units/mL subcutaneous solution: 5 unit(s), 0.05 mL, Subcutaneous, with breakfast HumaLOG 100 units/mL subcutaneous solution: 5 unit(s), 0.05 mL, Subcutaneous, with lunch HumaLOG 100 units/mL subcutaneous solution: 5 unit(s), 0.05 mL, Subcutaneous, with supper HumaLOG 100 units/mL subcutaneous solution: Give 0-15 units/dose, Subcutaneous, TIDAC Iron (ferrous sulfate) oral tablet: 325 mg, 1 tab(s), Oral, qDay Lantus: 18 unit(s), 0.18 mL, 0 mL/hr, Subcutaneous (INT), qHS Miralax Powder Packet: 17 gram(s), 15 mL, Oral, qDay Plavix: 75 mg, 1 tab(s), Oral, qDay Protonix: 40 mg, 1 tab(s), Oral, qDayAC Robaxin: 500 mg, 1 tab(s), Oral, TID, PRN: as needed for pain Tigan: 200 mg, 2 mL, Intramuscular, q6h, PRN: Nausea/Vomiting Toprol-XL: 25 mg, 1 tab(s), Oral, qDayM ammonium lactate 12% topical lotion: 1 isabela, Topical, BID aspirin: 81 mg, 1 tab(s), Oral, qDayM atorvastatin: 40 mg, 1 tab(s), Oral, qHS budesonide 0.5 mg/2 mL inhalation suspension: 0.5 mg, 2 mL, Inhalation, BIDRT ipratropium 42 mcg/inh (0.06%) nasal spray: 84 mcg, 2 spray(s), Intranasal, TID levothyroxine: 150 mcg, 1 tab(s), Oral, qDayAC lidocaine (lidocaine Patch REMOVAL): 1 EA, Miscellaneous, q24h lidocaine 4% topical patch: 1 patch(es), Transdermal, q24h magnesium sulfate for IV bolus: 2 g, 50 mL, 25 mL/hr, IV Piggyback, AsDirected, PRN: for Mg level 1.5-1.8 mg/dl magnesium sulfate for IV bolus: 4 g, 100 mL, 25 mL/hr, IV Piggyback, AsDirected, PRN: for Mg level 1.1-1.4 mg/dl magnesium sulfate for IV bolus: 6 g, 12 mL, 41.67 mL/hr, IV Piggyback, AsDirected, PRN: for Mg level 1 mg/dl or less potassium chloride bolus: 20 mEq, 100 mL, 50 mL/hr, IV Piggyback, AsDirected, PRN: for K+ level 2.5- 2.9 mEq/dL potassium chloride: 20 mEq, 1 tab(s), Oral, AsDirected, PRN: for K+ level 3.5 - 3.9 mEq/L potassium chloride: 40 mEq, 2 tab(s), Oral, AsDirected, PRN: for K+ level 2.5 - 2.9 mEq/dL potassium chloride: 40 mEq, 2 tab(s), Oral, AsDirected, PRN: for K+ level 3-3.4 mEq/L senna: 8.6 mg, 1 tab(s), Oral, BID traMADol: 50 mg, 1 tab(s), Oral, q6h, PRN: Pain vancomycin IVPB: 1,750 mg, 500 mL, 285.71 mL/hr, IV Piggyback, PREOP pharm Suspended Lasix: 40 mg, 4 mL, IV Push, BID Xarelto: 20 mg, 1 tab(s), Oral, with supper Documented Medications Documented Lantus 100 units/mL10 ml vial solution: 10 unit(s), 0.1 mL, Subcutaneous, qAM, 10 mL, 0 Refill(s) Lyumjev KwikPen 200 units/mL subcutaneous solution: 12 unit(s), INJECT 12 units twice daily under the skin as directed with meal MetFORMIN (Eqv-Glucophage XR) 500 mg oral tablet, EXTENDED RELEASE: TAKE 2 TABLETS BY MOUTH EVERY DAY Vitamin D3: 100 mcg, 1 tab(s), Oral, Daily, 0 Refill(s) Xarelto 10 mg oral tablet: 10 mg, 1 tab(s), Oral, qDay, 12 tab(s), 0 Refill(s) ferrous sulfate 325 mg (65 mg elemental iron) oral delayed release tablet: 325 mg, 1 tab(s), Oral, qDay, 30 tab(s), 0 Refill(s) ipratropium 42 mcg/inh (0.06%) nasal spray: 84 mcg, 2 spray(s), use 1 to 2 (TWO) spays in the nose three times daily prior to meals to prevent nasal running OR prior to bed levothyroxine 150 mcg (0.15 mg) oral tablet: 150 mcg, 1 tab(s), Oral, qDayAC, 0 Refill(s) pravastatin 40 mg oral tablet: 40 mg, 1 tab(s), Oral, qHS, 0 Refill(s) traMADol 25 mg oral tablet: 50 mg, 2 tab(s), Oral, q6h, not to exceed 400 mg/day, PRN: as needed for pain, 0 Refill(s) venlafaxine 225 mg oral tablet, extended release: TAKE 1 TABLET BY MOUTH EVERY DAY, Medications (36) Active Scheduled: (21) albuterol - ipratropium 2.5 mg-0.5 mg/3 mL Inhal Amrita UD 3 mL, Inhalation, QIDRT ammonium lactate Lotion 12% 1 isabela, Topical, BID aspirin 81 mg Chewable 81 mg 1 tab(s), Oral, qDayM atorvastatin 40 mg tablet 40 mg 1 tab(s), Oral, qHS budesonide 0.5 mg/2 mL Susp UD 0.5 mg 2 mL, Inhalation, BIDRT clopidogrel 75 mg Tablet 75 mg 1 tab(s), Oral, qDay ferrous sulfate 325 mg Tablet 325 mg 1 tab(s), Oral, qDay insulin glargine 18 unit(s) 0.18 mL, Subcutaneous (INT), qHS insulin lispro 100 units/mL Soln (3 mL) Give 0-15 units/dose, Subcutaneous, TIDAC insulin lispro 100 units/mL Soln (3 mL) 5 unit(s) 0.05 mL, Subcutaneous, with lunch insulin lispro 100 units/mL Soln (3 mL) 5 unit(s) 0.05 mL, Subcutaneous, with breakfast insulin lispro 100 units/mL Soln (3 mL) 5 unit(s) 0.05 mL, Subcutaneous, with supper ipratropium 42 mcg/inh nasal spray (0.06%) 15 mL bottle 84 mcg 2 spray(s), Intranasal, TID levothyroxine 150 mcg tablet 150 mcg 1 tab(s), Oral, qDayAC lidocaine patch REMOVAL 1 EA, Miscellaneous, q24h lidocaine topical 4% patch 1 patch(es), Transdermal, q24h metoprolol succinate 25 mg ER tablet 25 mg 1 tab(s), Oral, qDayM pantoprazole 40 mg EC tablet 40 mg 1 tab(s), Oral, qDayAC polyethylene glycol 3350 - UD packet 17 gram(s) 15 mL, Oral, qDay senna 8.6 mg Tablet 8.6 mg 1 tab(s), Oral, BID vancomycin PMX 1,750 mg 500 mL, IV Piggyback, PREOP pharm Continuous: (2) amiodarone 450 mg [0.5 mg/min] + sodium chloride MARYAM 250 mL 250 mL, Intravenous, 16.67 mL/hr heparin 25,000 unit(s) + Dextrose 5% Premix Diluent 250 mL 250 mL, Intravenous, 10 mL/hr PRN: (13) albuterol - ipratropium 2.5 mg-0.5 mg/3 mL Inhal Amrita UD 3 mL, Inhalation, q2hRT dextrose 50% Solution Disp syringe 50 mL 12.5 gram(s) 25 mL, IV Push, AsDirected heparin 5,000 units/mL (1 mL) vial 4,000 unit(s) 0.8 mL, IV Push, q6h magnesium sulfate 4 gram(s)/100mL PMX 4 g 100 mL, IV Piggyback, AsDirected magnesium sulfate 50% (500mg/mL) 6 g 12 mL, IV Piggyback, AsDirected magnesium sulfate PMX 2 g 50 mL, IV Piggyback, AsDirected methocarbamol 500 mg Tablet 500 mg 1 tab(s), Oral, TID potassium chloride (PMX) 20 mEq/100 mL 20 mEq 100 mL, IV Piggyback, AsDirected potassium chloride 20 mEq ER tablet 20 mEq 1 tab(s), Oral, AsDirected potassium chloride 20 mEq ER tablet 40 mEq 2 tab(s), Oral, AsDirected potassium chloride 20 mEq ER tablet 40 mEq 2 tab(s), Oral, AsDirected tramadol 50 mg Tablet 50 mg 1 tab(s), Oral, q6h trimethobenzamide 200 mg/2 mL Solution 200 mg 2 mL, Intramuscular, q6h Problem list: Active Problems (2) Tobacco use Ventricular tachycardia seen on manager monitoring Histories Past Medical History: No active or resolved past medical history items have been selected or recorded. Family History: Cancer Mother Heart disease Brother Heart attack Brother Procedure history: Coronary angioplasty ([id number]) on 06/24/2024 at 74 Years. Hernia repair ([id number]). Social History: Social & Psychosocial Habits Alcohol 06/27/2024 Use: Past Type: Beer Started at age: 38 Years Substance Abuse 06/27/2024 Use: Never Tobacco 06/27/2024 Tobacco Use: 10 or more cigarettes (1/, Former smoker, quit more Type: Cigarettes Home/Environment 06/27/2024 Living situation: Home/Independent Safe place to go: Yes Financial concerns: No Nutrition/Health 06/27/2024 Type of diet: Diabetic Caffeine intake amount: soda 12oz BID, coffee 1cup/day Sexual 06/27/2024 Sexually active: No Self described orientation: Straight or heterosexual What is your current gender identity? (Check all that apply) Identifies as male Physical Examination Vital Signs (last 24 hrs) Last Charted Temp Oral36.4 DegC (JUN 30 10:23) Heart Rate [id number] bpm (JUN 30 11:) GEK508 mmHg (JUN 30 10:23) DBP86 mmHg (JUN 30 10:23) General: Alert and oriented. Airway: Normal temporomandibular joint mobility, Normal mouth, Normal throat, Normal neck range of motion, Trachea midline. Mallampati classification: II (soft palate, fauces, uvula visible). Head: Normocephalic. Dentition Evaluation: Dentures, lower, Dentures, upper. Neck: Supple. Respiratory: Lungs are clear to auscultation. Cardiovascular: Normal rate. Heart Sounds: Normal. Gastrointestinal: Soft. Musculoskeletal Normal range of motion. Integumentary: Intact, Warm, Dry, [place]. Neurologic: Alert, Oriented. Review / Management Results review: Labs (Last four charted values) WBC 8.3(JUN 30)7.7(JUN 29)7.1(JUN 28)10.8(JUN 27) Hgb L 10.5(JUN 30)L 10.5(JUN 29)L 11.0(JUN 28)L 12.0(JUN 27) Hct L 30.1(JUN 30)L 30.7(JUN 29)L 31.8(JUN 28)L 35.3(JUN 27) Plt See Comment(JUN 30)L 92(JUN 29)L 82(JUN 28)L 119(JUN 27) Na 137(JUN 30)138(JUN 29)138(JUN 28)136(JUN 27) K 4.2(JUN 30)3.6(JUN 29)3.7(JUN 28)3.8(JUN 27) CO2 29(JUN 30)30(JUN 29)29(JUN 28)26(JUN 27) Cl 100(JUN 30)101(JUN 29)102(JUN 28)101(JUN 27) Cr 0.84(JUN 30)0.77(JUN 29)0.82(JUN 28)0.86(JUN 27) BUN 20.0(JUN 30)17.0(JUN 29)21.0(JUN 28)H 24.0(JUN 27) Glucose H 243(JUN 30)H 235(JUN 29)H 277(JUN 28)H 302(JUN 27) Mg 1.9(JUN 30)1.8(JUN 29)2.1(JUN 28)2.3(JUN 27) Ca 8.8(JUN 30)8.7(JUN 29)8.8(JUN 28)9.1(JUN 27) PT 14.3(JUN 27) INR 1.2(JUN 27) PTT H 43.7(JUN 29)30.5(JUN 29)H 60.7(JUN 28)H 60.4(JUN 28) . Assessment and Plan [place] [employer] (ASA) physical status classification: Class IV. Anesthetic Preoperative Plan Premedication: None. Anesthetic technique: MAC. Induction: intravenously. Maintenance airway: Mask. Special techniques: Warming device, no Extracorporeal. Special Monitoring. Postoperative pain management: Per surgeon. Risks discussed: nausea, vomiting, headache, sore throat, dental injury, hypotension, allergic reaction, serious complications. Informed consent: signed by patient. Beta Nayana: Beta Nayana Taken Within 24 Hrs: Yes. Digitally Signed by GENARO LAL DO on 06/30/2024 03:45 PM [id number] Cardiology Progress note Subjective No acute overnight events, patient denies chest pain or dyspnea currently Objective Vitals and Measurements T: 36.4 C (Oral) TMIN: 36.3 C (Oral) TMAX: 36.7 C (Oral) HR: 60 RR: 16 BP: 110/86 SpO2: 95% WT: 111.9 kg Intake and Output 7AM Yesterday to 7AM Today Intake and Output (Last 24 hours) Intake Oral Intake 50.00 Output Urinary Catheter Output: 200.00 Urine Count 1.00 Total Summary Total Intake 50.00 Total Output 200.00 Fluid Balance -150.00 Physical Exam General Appearance: NAD Head: NCAT EENT: no gross abnormalities Neck: no JVD appreciated Cardiac: NS1S2 Lungs: CTAB Abdomen: soft, NT/ND Musculoskeletal: ROM wnl Extremities: no pitting edema Neurological: no focal deficits Skin: warm, dry Psychiatric: normal mentation Weight Current Weight Dosing Weight: 110.5 kg (06/27/24) Current Weight: 111.9 kg (06/30/24) Current Weight: 109.2 kg (06/29/24) Medications Medications (36) Active Scheduled: (21) albuterol - ipratropium 2.5 mg-0.5 mg/3 mL Inhal Amrita UD 3 mL, Inhalation, QIDRT ammonium lactate Lotion 12% 1 isabela, Topical, BID aspirin 81 mg Chewable 81 mg 1 tab(s), Oral, qDayM atorvastatin 40 mg tablet 40 mg 1 tab(s), Oral, qHS budesonide 0.5 mg/2 mL Susp UD 0.5 mg 2 mL, Inhalation, BIDRT clopidogrel 75 mg Tablet 75 mg 1 tab(s), Oral, qDay ferrous sulfate 325 mg Tablet 325 mg 1 tab(s), Oral, qDay insulin glargine 18 unit(s) 0.18 mL, Subcutaneous (INT), qHS insulin lispro 100 units/mL Soln (3 mL) Give 0-15 units/dose, Subcutaneous, TIDAC insulin lispro 100 units/mL Soln (3 mL) 5 unit(s) 0.05 mL, Subcutaneous, with lunch insulin lispro 100 units/mL Soln (3 mL) 5 unit(s) 0.05 mL, Subcutaneous, with breakfast insulin lispro 100 units/mL Soln (3 mL) 5 unit(s) 0.05 mL, Subcutaneous, with supper ipratropium 42 mcg/inh nasal spray (0.06%) 15 mL bottle 84 mcg 2 spray(s), Intranasal, TID levothyroxine 150 mcg tablet 150 mcg 1 tab(s), Oral, qDayAC lidocaine patch REMOVAL 1 EA, Miscellaneous, q24h lidocaine topical 4% patch 1 patch(es), Transdermal, q24h metoprolol succinate 25 mg ER tablet 25 mg 1 tab(s), Oral, qDayM pantoprazole 40 mg EC tablet 40 mg 1 tab(s), Oral, qDayAC polyethylene glycol 3350 - UD packet 17 gram(s) 15 mL, Oral, qDay senna 8.6 mg Tablet 8.6 mg 1 tab(s), Oral, BID vancomycin PMX 1,750 mg 500 mL, IV Piggyback, PREOP pharm Continuous: (2) amiodarone 450 mg [0.5 mg/min] + sodium chloride MARYAM 250 mL 250 mL, Intravenous, 16.67 mL/hr heparin 25,000 unit(s) + Dextrose 5% Premix Diluent 250 mL 250 mL, Intravenous, 10 mL/hr PRN: (13) albuterol - ipratropium 2.5 mg-0.5 mg/3 mL Inhal Amrita UD 3 mL, Inhalation, q2hRT dextrose 50% Solution Disp syringe 50 mL 12.5 gram(s) 25 mL, IV Push, AsDirected heparin 5,000 units/mL (1 mL) vial 4,000 unit(s) 0.8 mL, IV Push, q6h magnesium sulfate 4 gram(s)/100mL PMX 4 g 100 mL, IV Piggyback, AsDirected magnesium sulfate 50% (500mg/mL) 6 g 12 mL, IV Piggyback, AsDirected magnesium sulfate PMX 2 g 50 mL, IV Piggyback, AsDirected methocarbamol 500 mg Tablet 500 mg 1 tab(s), Oral, TID potassium chloride (PMX) 20 mEq/100 mL 20 mEq 100 mL, IV Piggyback, AsDirected potassium chloride 20 mEq ER tablet 20 mEq 1 tab(s), Oral, AsDirected potassium chloride 20 mEq ER tablet 40 mEq 2 tab(s), Oral, AsDirected potassium chloride 20 mEq ER tablet 40 mEq 2 tab(s), Oral, AsDirected tramadol 50 mg Tablet 50 mg 1 tab(s), Oral, q6h trimethobenzamide 200 mg/2 mL Solution 200 mg 2 mL, Intramuscular, q6h Lab Results 06/30 03:38 WBC: 8.3 Hgb: 10.5 L Hct: 30.1 L Platelet: See Comment Glucose Level: 243 H Sodium Level: 137 Potassium Level: 4.2 BUN: 20.0 Creatinine Lvl (s): 0.84 06/29 03:42 WBC: 7.7 Hgb: 10.5 L Hct: 30.7 L Platelet: 92 L Neutrophil %: 71.6 Glucose Level: 235 H Sodium Level: 138 Potassium Level: 3.6 BUN: 17.0 Creatinine Lvl (s): 0.77 EKG No qualifying data available. Assessment/Plan Orders: amiodarone 450 mg [0.5 mg/min] + Sodium Chloride 0.9% intravenous solution 250 mL(Amiodarone for IV450 mg [0.5 mg/min] + NS 250 mL), Start: 06/27/24 12:36:00 EST, STAT, Rate: 16.67 mL/hr, 06/27/24 12:36:00 EST ammonium lactate topical(ammonium lactate 12% topical lotion), 1 isabela, Topical, BID metoprolol(Toprol-XL), 25 mg= 1 tab(s), Oral, qDayM Communication Order (continuous), 06/29/24 14:16:00 EST, Re-consult skin team if wound deteriorates, or for new skin integrity impairments, Constant order Cushion Waffle 17x17 Chair Medium, [place]ess ([id number])(Waffle Cushion Chair Medium ([id number])), 06/29/24 14:17:00 EST, Quantity 1, Weight: 110.5, 06/29/24 14:17:00 EST Hydrofiber Aquacel Silver Dressing ([id number]), 06/29/24 14:17:00 EST, Quantity 2, Weight: 110.5, 06/29/24 14:17:00 EST Wound Care, 06/29/24 14:16:00 EST, Site: Ankle, left, Cleanse with: Normal saline, Apply to Wound Bed: Aquacel AG 4x4, Cover with: Foam dressing, q3day, Cut Aquacel AG to fit Change PRN if impaired Unresponsive Episode: Syncope versus out of hospital Cardiac Arrest Wide Complex Tachycardia - concerning for VTach PVCs CAD s/p PCI to RCA Acute on Chronic HFpEF AFIB - current in afib B/l blindness Hypothyroidism 74M with hx of afib, HFpEF, DM, hyperlipidemia, 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 performed CPR. EMS arrived, delivered 1 shock with ROSC. Reported rhythm was PEA on documentation. Initial labs show stable Cr 1.01, K 3.9, 1.9. Troponin 400's Documentation states is doubting this was cardiac arrest. Patient noted to have telemetry strips showing wide complex tachycardia concerning for VTach. Cardiology Dr. Chavez consulted, concerned for Vtach. Echo showed preserved EF 60%. Patient underwent [facility] s/p PCI/KESHIA to RCA on 06/25/24. Documentation on 06/27/24 morning states that code blue was called for sustained Vtach with a pulse.Initial episode self resolved, 2nd and 3rd episodes patient was defibrillated. Started on IV amiodarone. Currently patient reports his body is sore, especially his chest and ribs from CPR/defibrillation. CXR here shows pulmonary edema. Impression / Plan: Patient has concerning wide complex tachyarrhythmia suspected to be VTach causing syncope versus cardiac arrest. Current rhythm is afib with frequent PVCs Continue amiodarone drip Heparin drip for afib Aspirin, plavix for recent PCI/KESHIA Stat labs ordered Patient nearing euvolemia, will discontinue IV Lasix. 2D TTE personally reviewed, EF is 50 to 55% without any regional wall motion abnormalities, right atrial pressure approximately 8 mm per mercury. Is euvolemic today Telemetry monitoring EP consult for ICD consideration Hospitalist consulted for DM and other medicine issues Scheduled for AICD today per EP. Digitally Signed by ANT JACKSON MD on 06/30/2024 12:22 PM [facility] [id number] Note* Exam Date Time Procedure Performing Provider Status 06/30/24 11:20 AM XR Chest 1 View KARRI GROSS MD; Aut h (Verified) [id number] ORIGINAL EXAMINATION: ONE XRAY VIEW OF THE CHEST06/30/2024 11:20 am Portable upright COMPARISON: 06/27/2024 HISTORY: ORDERING SYSTEM PROVIDED HISTORY: Reason for Exam: Cough, SOB, FINDINGS: Stable enlargement of the cardiopericardial silhouette and elevation of the left hemidiaphragm. There is left basilar atelectasis that has increased. No other significant interval change. Continued interstitial and peribronchial thickening in both lungs. No large pleural effusion or pneumothorax. Vasculature is difficult to evaluate. IMPRESSION: There is some increase in left basilar atelectasis. No other significant change. Interpreted by: Karri Gross MD Preliminary Report By: Karri Gross MD Electronically signed By Karri Gross MD Dictated Date: 06/30/2024 11:25:19 AM Prelim Date: 06/30/2024 11:26:40 AM Sign Date: 06/30/2024 11:26:40 AM Ordering Provider: DHIRAJ KIM [facility] [id number] Note Date of Service 06/30/2024 11:02:48 Chief Complaint Cough, SOB, dry mouth Subjective 74-year-old male with medical history of IDDM 2, bilateral legal blindness, COPD, no home oxygen requirements, hypothyroidism, depression, chronic iron deficiency anemia, HFpEF, hyperlipidemia, atrial fibrillation on chronic Xarelto. Patient presents to the hospital for cwy-mr-viyzybco cardiac arrest patient was in V. tach transferred to [facility] patient initiated on amiodarone and heparin drip. Patient seen by cardiologywas felt to be fluid overloaded initiated on diuretic therapy. After further workup concern for wide-complex tachycardia and V. tach. Electrophysiology has been consulted for possible permanent pacemaker placement. Internal medicine was consulted for diabetic management along with medical management. Patient today 06/30 complaining of cough with increased shortness of breath. Patient had undergone diuresis. Previous x-ray showing no concerning signs for infectious process. Will repeat x-ray today.Shows no leukocytosis but there is prominent neutrophilia on the differential. At this time would hold off on antibiotic initiation until imaging has been performed. With patient's COPD will initiatebudesonide and increased frequency of DuoNeb therapy from 3 times daily to 4 times daily. Objective Vitals and Measurements T: 36.4 C (Oral) TMIN: 36.3 C (Oral) TMAX: 36.8 C (Oral) HR: 73 (Monitored) RR: 20 BP: 110/86 SpO2:95% WT: 111.9 kg Intake and Output 7AM Yesterday to 7AM Today Intake and Output (Last 24 hours) Intake Oral Intake 50.00 Output Urinary Catheter Output: 200.00 Urine Count 1.00 Total Summary Total Intake 50.00 Total Output 200.00 Fluid Balance -150.00 Physical Exam Exam: CVS: regular rate and rhythm Lungs: rhonchi of tb/l lungs present Abdomen: soft, non distended NT Extremities: No edema, No cyanosis or clubbing GOLD LAYER: Alert, No focal deficits identified. aaox3 Weight Current Weight Dosing Weight: 110.5 kg (06/27/24) Current Weight: 111.9 kg (06/30/24) Current Weight: 109.2 kg (06/29/24) Medications Medications (35) Active Scheduled: (20) albuterol - ipratropium 2.5 mg-0.5 mg/3 mL Inhal Amrita UD 3 mL, Inhalation, TIDRT ammonium lactate Lotion 12% 1 isabela, Topical, BID aspirin 81 mg Chewable 81 mg 1 tab(s), Oral, qDayM atorvastatin 40 mg tablet 40 mg 1 tab(s), Oral, qHS budesonide 0.5 mg/2 mL Susp UD 0.5 mg 2 mL, Inhalation, BIDRT clopidogrel 75 mg Tablet 75 mg 1 tab(s), Oral, qDay ferrous sulfate 325 mg Tablet 325 mg 1 tab(s), Oral, qDay insulin glargine 18 unit(s) 0.18 mL, Subcutaneous (INT), qHS insulin lispro 100 units/mL Soln (3 mL) Give 0-15 units/dose, Subcutaneous, TIDAC insulin lispro 100 units/mL Soln (3 mL) 5 unit(s) 0.05 mL, Subcutaneous, with lunch insulin lispro 100 units/mL Soln (3 mL) 5 unit(s) 0.05 mL, Subcutaneous, with breakfast insulin lispro 100 units/mL Soln (3 mL) 5 unit(s) 0.05 mL, Subcutaneous, with supper ipratropium 42 mcg/inh nasal spray (0.06%) 15 mL bottle 84 mcg 2 spray(s), Intranasal, TID levothyroxine 150 mcg tablet 150 mcg 1 tab(s), Oral, qDayAC lidocaine patch REMOVAL 1 EA, Miscellaneous, q24h lidocaine topical 4% patch 1 patch(es), Transdermal, q24h pantoprazole 40 mg EC tablet 40 mg 1 tab(s), Oral, qDayAC polyethylene glycol 3350 - UD packet 17 gram(s) 15 mL, Oral, qDay senna 8.6 mg Tablet 8.6 mg 1 tab(s), Oral, BID vancomycin PMX 1,750 mg 500 mL, IV Piggyback, PREOP pharm Continuous: (2) amiodarone 450 mg [0.5 mg/min] + sodium chloride MARYAM 250 mL 250 mL, Intravenous, 16.67 mL/hr heparin 25,000 unit(s) + Dextrose 5% Premix Diluent 250 mL 250 mL, Intravenous, 10 mL/hr PRN: (13) albuterol - ipratropium 2.5 mg-0.5 mg/3 mL Inhal Amrita UD 3 mL, Inhalation, q2hRT dextrose 50% Solution Disp syringe 50 mL 12.5 gram(s) 25 mL, IV Push, AsDirected heparin 5,000 units/mL (1 mL) vial 4,000 unit(s) 0.8 mL, IV Push, q6h magnesium sulfate 4 gram(s)/100mL PMX 4 g 100 mL, IV Piggyback, AsDirected magnesium sulfate 50% (500mg/mL) 6 g 12 mL, IV Piggyback, AsDirected magnesium sulfate PMX 2 g 50 mL, IV Piggyback, AsDirected methocarbamol 500 mg Tablet 500 mg 1 tab(s), Oral, TID potassium chloride (PMX) 20 mEq/100 mL 20 mEq 100 mL, IV Piggyback, AsDirected potassium chloride 20 mEq ER tablet 20 mEq 1 tab(s), Oral, AsDirected potassium chloride 20 mEq ER tablet 40 mEq 2 tab(s), Oral, AsDirected potassium chloride 20 mEq ER tablet 40 mEq 2 tab(s), Oral, AsDirected tramadol 50 mg Tablet 50 mg 1 tab(s), Oral, q6h trimethobenzamide 200 mg/2 mL Solution 200 mg 2 mL, Intramuscular, q6h Lab Results 06/30 03:38 WBC: 8.3 Hgb: 10.5 L Hct: 30.1 L Platelet: See Comment Glucose Level: 243 H Sodium Level: 137 Potassium Level: 4.2 BUN: 20.0 Creatinine Lvl (s): 0.84 06/29 03:42 WBC: 7.7 Hgb: 10.5 L Hct: 30.7 L Platelet: 92 L Neutrophil %: 71.6 Glucose Level: 235 H Sodium Level: 138 Potassium Level: 3.6 BUN: 17.0 Creatinine Lvl (s): 0.77 EKG No qualifying data available. Assessment/Plan Acute hypoxic respiratory failure Continue oxygen supplementation Repeat chest x-ray Neutrophilic predominant today Antibiotics until imaging Cardiogenic pulmonary edema Patient previously was undergoing diuresis This currently suspended Patient appears relatively euvolemic at this moment Hyperglycemia with history of type 2 diabetes mellitus Patient be continued with scheduled insulin along with a sliding scale coverage Continue Lantus nightly Nausea Improved continue Tigan as needed Slow transit constipation MiraLAX and senna Wide-complex tachycardia, concerning for V. tach Plan for pacemaker placement Amiodarone drip Atrial fibrillation, currently rate controlled, known history Anticoagulation heparin drip CAD status post PCI to RCA 06/25/2024 DAPT Goal-directed medical therapy CODE STATUS: Full code Digitally Signed by DHIRAJ KIM MD on 06/30/2024 11:11 AM [id number] Cardiology Consult note Date of Service June 29, 2024 History of Present Illness Patient is a 74-year-old male with medical history significant for persistent atrial fibrillation on Xarelto, chronic right bundle branch, hyperlipidemia, type 2 diabetes, COPD, former tobacco use, hypothyroidism, bilateral blindness, history of HFpEF who presents as a transfer from [facility] [place] after an unresponsive event on June 24, 2024. Patient was noted to be in ventricular tachycardia status post defibrillation, patient was neurologically intact. After being admitted to the floor for concern for sepsis and aspiration pneumonia, patient continued to have sinus bradycardia with pauses and troponins were in the 400s hence patient underwent left heart cath which revealed left main 30% stenosis, mild luminal irregularities of LAD, proximal circumflex 40% stenosis, ostialRCA 80% stenosis status post PCI of RCA on 06/25/2024. On 06/27/2024, patient apparently had another episode of unresponsiveness and was noted to be ventricular tachycardia, chest compressions were initiated, by the time the code team arrived, patient was talking alert and had a palpable pulse without requiring defibrillation. Then an EKG was obtained and he went into V. tach again, was unresponsive, underwent 1 defibrillation. Was advised to start on IV amiodarone and transfer was facilitated for ICD evaluation. Echocardiogram was performed at outside hospital [facility] [place] on 06/25/2024 which showed estimated EF of 60%, mild biatrial dilatation, trivial MR, trivial AI Review of Systems 12 point ROS negative unless mentioned in HPI Physical Exam Vitals and Measurements T: 37.0 C (Oral) TMIN: 36.4 C (Oral) TMAX: 37.0 C (Oral) HR: 77 (Monitored) RR: 20 BP: 109/71 SpO2:100% WT: 109.2 kg Weight Current Weight Dosing Weight: 110.5 kg (06/27/24) Current Weight: 109.2 kg (06/29/24) Constitutional: Oriented to time, place, and person well developed well nourished Cardiovascular: JVD not elevated, S1 S2 present,No added sounds, no lower extremity edema Abdomen: Nontender Musculoskeletal system: general/bilateral Normal movement of all extremities Neurological: N FND Skin: color and pigmentation is normal Lab Results 06/29 03:42 WBC: 7.7 Hgb: 10.5 L Hct: 30.7 L Platelet: 92 L Neutrophil %: 71.6 Glucose Level: 235 H Sodium Level: 138 Potassium Level: 3.6 BUN: 17.0 Creatinine Lvl (s): 0.77 06/28 03:58 WBC: 7.1 Hgb: 11.0 L Hct: 31.8 L Platelet: 82 L Neutrophil %: 72.5 Glucose Level: 277 H Sodium Level: 138 Potassium Level: 3.7 BUN: 21.0 Creatinine Lvl (s): 0.82 Assessment/Plan Recurrent VT s/p 48 hours of revascularization Persistent afib on subtherapeutic doses of Xarelto at home CAD s/p PCI to ostial RCA 06/25/24, 30% L[place], 40%proximal Lcx Type 2 DM COPD not on home O2 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 tach status post defibrillation at home. Was noted to be in A-fib with complete heart block on the medical floor after being admitted with bradycardia and ventricular pauses which thereby then prompted left heart cath on 06/25 status post re vascularization of the ostial RCA. 48 hours post revascularization, he had another episode of ventricular tachycardia and underwent successful defibrillation, was started on IV amiodarone and transferred to [place] for ICD evaluation. Echocardiogram repeated during this hospital stay shows EF of about 50 to 55% and Mildly increased RV cavity size, mildly increased RVSP. Currently on IV amiodarone. Pt was on subtherapeutic doses of Xarelto as an outpatient (10mg for afib). We will plan for ICD placement either tomorrow or more likely Saturday for secondary prevention. In the meantime, will continue IV heparin. Procedure/Surgical History Coronary angioplasty: 06/24/24 Hernia repair Medications Inpatient albuterol 2.5 mg/3 mL (0.083%) inhalation solution, 2.5 mg= 3 mL, Inhalation, q2hRT, PRN Amiodarone for IV 450 mg [1 mg/min] + NS 250 mL aspirin, 81 mg= 1 tab(s), Oral, qDayM atorvastatin, 40 mg= 1 tab(s), Oral, qHS Dextrose 50% IV Push, 12.5 gram(s)= 25 mL, IV Push, AsDirected, PRN DuoNeb, 3 mL, Inhalation, q4hRT, PRN DuoNeb, 3 mL, Inhalation, TIDRT DuoNeb, 3 mL, Inhalation, q2hRT, PRN HumaLOG 100 units/mL subcutaneous solution, 5 unit(s)= 0.05 mL, Subcutaneous, with lunch HumaLOG 100 units/mL subcutaneous solution, 5 unit(s)= 0.05 mL, Subcutaneous, with breakfast HumaLOG 100 units/mL subcutaneous solution, 5 unit(s)= 0.05 mL, Subcutaneous, with supper HumaLOG 100 units/mL subcutaneous solution, Give 0-15 units/dose, Subcutaneous, TIDAC ipratropium 42 mcg/inh (0.06%) nasal spray, 84 mcg= 2 spray(s), Intranasal, TID Iron (ferrous sulfate) oral tablet, 325 mg= 1 tab(s), Oral, qDay Lantus, 18 unit(s)= 0.18 mL, Subcutaneous (INT), qHS Lasix, 40 mg= 4 mL, IV Push, BID levothyroxine, 150 mcg= 1 tab(s), Oral, qDayAC lidocaine (lidocaine Patch REMOVAL), 1 EA, Miscellaneous, q24h lidocaine 4% topical patch, 1 patch(es), Transdermal, q24h magnesium sulfate for IV bolus, 2 gram(s)= 50 mL, IV Piggyback, AsDirected, PRN magnesium sulfate for IV bolus, 4 gram(s)= 100 mL, IV Piggyback, AsDirected, PRN magnesium sulfate for IV bolus Miralax Powder Packet, 17 gram(s)= 15 mL, Oral, qDay Plavix, 75 mg= 1 tab(s), Oral, qDay potassium chloride, 20 mEq= 1 tab(s), Oral, AsDirected, PRN potassium chloride, 40 mEq= 2 tab(s), Oral, AsDirected, PRN potassium chloride, 40 mEq= 2 tab(s), Oral, AsDirected, PRN potassium chloride bolus, 20 mEq= 100 mL, IV Piggyback, AsDirected, PRN Protonix, 40 mg= 1 tab(s), Oral, qDayAC Robaxin, 500 mg= 1 tab(s), Oral, TID, PRN senna, 8.6 mg= 1 tab(s), Oral, BID Tigan, 200 mg= 2 mL, Intramuscular, q6h, PRN traMADol, 50 mg= 1 tab(s), Oral, q6h, PRN Xarelto, 20 mg= 1 tab(s), Oral, with supper Home ferrous sulfate 325 mg (65 mg elemental iron) oral delayed release tablet, 325 mg= 1 tab(s), Oral, qDay ipratropium 42 mcg/inh (0.06%) nasal spray, 84 mcg= 2 spray(s) Lantus 100 units/mL10 ml vial solution, 10 unit(s)= 0.1 mL, Subcutaneous, qAM levothyroxine 150 mcg (0.15 mg) oral tablet, 150 mcg= 1 tab(s), Oral, qDayAC Lyumjev KwikPen 200 units/mL subcutaneous solution, 12 unit(s) MetFORMIN (Eqv-Glucophage XR) 500 mg oral tablet, EXTENDED RELEASE pravastatin 40 mg oral tablet, 40 mg= 1 tab(s), Oral, qHS traMADol 25 mg oral tablet, 50 mg= 2 tab(s), Oral, q6h, PRN venlafaxine 225 mg oral tablet, extended release Vitamin D3, 100 mcg= 1 tab(s), Oral, Daily Xarelto 10 mg oral tablet, 10 mg= 1 tab(s), Oral, qDay Allergies Shellfish Hives Social History Alcohol Use: Past. Type: Beer. Started at age: 38 Years., 06/27/2024 Home/Environment Living situation: Home/Independent. Safe place to go: Yes. Financial concerns: No., 06/27/2024 Nutrition/Health Type of diet: Diabetic. Caffeine intake amount: soda 12oz BID, coffee 1cup/day., 06/27/2024 Sexual Sexually active: No. Self described orientation: Straight or heterosexual. Gender Identity: Identifies as male., 06/27/2024 Substance Abuse Use: Never., 06/27/2024 Tobacco Nicotine Use: 10 or more cigarettes (1/2 pack or more)/day in last 30 days, Former smoker, quit more than 30 days ago. Type: Cigarettes., 06/27/2024 Family History Cancer: Mother. Heart attack: Brother. Heart disease: Brother. Health Status Family Member(s) Immunizations SARS-CoV-2 mRNA (tozinameran) vaccine: 0.3 unknown unit (01/27/21) SARS-CoV-2 mRNA (tozinameran) vaccine: 0.3 unknown unit (01/06/21) tetanus/diphth/pertuss (Tdap) adult/adol: 0.5 unknown unit (01/11/20) Digitally Signed by YOSI VERA MD on 06/29/2024 04:24 PM [id number] Cardiology Progress note Subjective No acute overnight events, patient denies recurrence of chest pain or dyspnea. Objective Vitals and Measurements T: 36.3 C (Oral) TMIN: 36.3 C (Oral) TMAX: 37.0 C (Oral) HR: 72 (Monitored) RR: 18 BP: 110/68 SpO2:98% WT: 109.2 kg Intake and Output 7AM Yesterday to 7AM Today Intake and Output (Last 24 hours) Intake Administration Information 761.76 Oral Intake 340.00 Output Urinary Catheter Output: 2575.00 Urine Count 2.00 Diaper Count 1.00 Total Summary Total Intake 1101.76 Total Output 2575.00 Fluid Balance -1473.24 Physical Exam General Appearance: NAD Head: NCAT EENT: no gross abnormalities Neck: no JVD appreciated Cardiac: NS1S2 Lungs: CTAB Abdomen: soft, NT/ND Musculoskeletal: ROM wnl Extremities: no pitting edema Neurological: no focal deficits Skin: warm, dry Psychiatric: normal mentation Weight Current Weight Dosing Weight: 110.5 kg (06/27/24) Current Weight: 109.2 kg (06/29/24) Medications Medications (36) Active Scheduled: (19) albuterol - ipratropium 2.5 mg-0.5 mg/3 mL Inhal Amrita UD 3 mL, Inhalation, TIDRT ammonium lactate Lotion 12% 1 isabela, Topical, BID aspirin 81 mg Chewable 81 mg 1 tab(s), Oral, qDayM atorvastatin 40 mg tablet 40 mg 1 tab(s), Oral, qHS clopidogrel 75 mg Tablet 75 mg 1 tab(s), Oral, qDay ferrous sulfate 325 mg Tablet 325 mg 1 tab(s), Oral, qDay insulin glargine 18 unit(s) 0.18 mL, Subcutaneous (INT), qHS insulin lispro 100 units/mL Soln (3 mL) Give 0-15 units/dose, Subcutaneous, TIDAC insulin lispro 100 units/mL Soln (3 mL) 5 unit(s) 0.05 mL, Subcutaneous, with lunch insulin lispro 100 units/mL Soln (3 mL) 5 unit(s) 0.05 mL, Subcutaneous, with breakfast insulin lispro 100 units/mL Soln (3 mL) 5 unit(s) 0.05 mL, Subcutaneous, with supper ipratropium 42 mcg/inh nasal spray (0.06%) 15 mL bottle 84 mcg 2 spray(s), Intranasal, TID levothyroxine 150 mcg tablet 150 mcg 1 tab(s), Oral, qDayAC lidocaine patch REMOVAL 1 EA, Miscellaneous, q24h lidocaine topical 4% patch 1 patch(es), Transdermal, q24h metoprolol succinate 25 mg ER tablet 12.5 mg 0.5 tab(s), Oral, Once pantoprazole 40 mg EC tablet 40 mg 1 tab(s), Oral, qDayAC polyethylene glycol 3350 - UD packet 17 gram(s) 15 mL, Oral, qDay senna 8.6 mg Tablet 8.6 mg 1 tab(s), Oral, BID Continuous: (2) amiodarone 450 mg [1 mg/min] + sodium chloride MARYAM 250 mL 250 mL, Intravenous, 33.33 mL/hr heparin 25,000 unit(s) [12 unit(s)/kg/hr] + Dextrose 5% Premix Diluent 250 mL 250 mL, Intravenous, 13.26 mL/hr PRN: (15) albuterol - ipratropium 2.5 mg-0.5 mg/3 mL Inhal Amrita UD 3 mL, Inhalation, q2hRT albuterol - ipratropium 2.5 mg-0.5 mg/3 mL Inhal Amrita UD 3 mL, Inhalation, q4hRT albuterol 0.083% Soln UD (2.5mg/3 mL) 2.5 mg 3 mL, Inhalation, q2hRT dextrose 50% Solution Disp syringe 50 mL 12.5 gram(s) 25 mL, IV Push, AsDirected heparin 5,000 units/mL (1 mL) vial 4,000 unit(s) 0.8 mL, IV Push, q6h magnesium sulfate 4 gram(s)/100mL PMX 4 g 100 mL, IV Piggyback, AsDirected magnesium sulfate 50% (500mg/mL) 6 g 12 mL, IV Piggyback, AsDirected magnesium sulfate PMX 2 g 50 mL, IV Piggyback, AsDirected methocarbamol 500 mg Tablet 500 mg 1 tab(s), Oral, TID potassium chloride (PMX) 20 mEq/100 mL 20 mEq 100 mL, IV Piggyback, AsDirected potassium chloride 20 mEq ER tablet 20 mEq 1 tab(s), Oral, AsDirected potassium chloride 20 mEq ER tablet 40 mEq 2 tab(s), Oral, AsDirected potassium chloride 20 mEq ER tablet 40 mEq 2 tab(s), Oral, AsDirected tramadol 50 mg Tablet 50 mg 1 tab(s), Oral, q6h trimethobenzamide 200 mg/2 mL Solution 200 mg 2 mL, Intramuscular, q6h Lab Results 06/29 03:42 WBC: 7.7 Hgb: 10.5 L Hct: 30.7 L Platelet: 92 L Neutrophil %: 71.6 Glucose Level: 235 H Sodium Level: 138 Potassium Level: 3.6 BUN: 17.0 Creatinine Lvl (s): 0.77 EKG EKG - Completed -- 06/27/24 11:47:00 EST, admit EKG - Completed -- 06/27/24 12:23:00 EST Assessment/Plan Orders: ammonium lactate topical(ammonium lactate 12% topical lotion), 1 isabela, Topical, BID metoprolol(Toprol-XL), 12.5 mg= 0.5 tab(s), Oral, Once Communication Order (continuous), 06/29/24 14:16:00 EST, Re-consult skin team if wound deteriorates, or for new skin integrity impairments, Constant order Cushion Waffle 17x17 Chair Medium, Valveless ([id number])(Waffle Cushion Chair Medium ([id number])), 06/29/24 14:17:00 EST, Quantity 1, Weight: 110.5, 06/29/24 14:17:00 EST Hydrofiber Aquacel Silver Dressing ([id number]), 06/29/24 14:17:00 EST, Quantity 2, Weight: 110.5, 06/29/24 14:17:00 EST Wound Care, 06/29/24 14:16:00 EST, Site: Ankle, left, Cleanse with: Normal saline, Apply to Wound Bed: Aquacel AG 4x4, Cover with: Foam dressing, q3day, Cut Aquacel AG to fit Change PRN if impaired Unresponsive Episode: Syncope versus out of hospital Cardiac Arrest Wide Complex Tacycardia - concerning for VTach PVCs CAD s/p PCI to RCA Acute on Chronic HFpEF AFIB - current in afib B/l blindness Hypothyroidism 74M with hx of afib, HFpEF, DM, hyperlipidemia, 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 performed CPR. EMS arrived, delivered 1 shock with ROSC. Reported rhythm was PEA on documentation. Initial labs show stable Cr 1.01, K 3.9, 1.9. Troponin 400's Documentation states is doubting this was cardiac arrest. Patient noted to have telemetry strips showing wide complex tachycardia concerning for VTach. Cardiology Dr. Chavez consulted, concerned for Vtach. Echo showed preserved EF 60%. Patient underwent [facility] s/p PCI/KESHIA to RCA on 06/25/24. Documentation on 06/27/24 morning states that shalonda issa was called for sustained Vtach with a pulse.Initial episode self resolved, 2nd and 3rd episodes patient was defibrillated. Started on IV amiodarone. Currently patient reports his body is sore, especially his chest and ribs from CPR/defibrillation. CXR here shows pulmonary edema. Impression / Plan: Patient has concerning wide complex tachyarrhythmia suspected to be VTach causing syncope versus cardiac arrest. Current rhythm is afib with frequent PVCs Continue amiodarone drip Heparin drip for afib Aspirin, plavix for recent PCI/KESHIA Stat labs ordered Patient nearing euvolemia, will discontinue IV Lasix. 2D TTE personally reviewed, EF is 50 to 55% without any regional wall motion abnormalities, right atrial pressure approximately 8 mm per mercury. Diuresed well with net negative volume status of 1.5 L. Telemetry monitoring EP consult for ICD consideration Hospitalist consulted for DM and other medicine issues Will likely require AICD for secondary prevention. Digitally Signed by ANT JACKSON MD on 06/29/2024 04:15 PM [id number] Cardiology Progress note Subjective No acute overnight events, patient denies recurrence of chest pain or dyspnea. Objective Vitals and Measurements T: 36.3 C (Oral) TMIN: 36.3 C (Oral) TMAX: 37.0 C (Oral) HR: 72 (Monitored) RR: 18 BP: 110/68 SpO2:98% WT: 109.2 kg Intake and Output 7AM Yesterday to 7AM Today Intake and Output (Last 24 hours) Intake Administration Information 761.76 Oral Intake 340.00 Output Urinary Catheter Output: 2575.00 Urine Count 2.00 Diaper Count 1.00 Total Summary Total Intake 1101.76 Total Output 2575.00 Fluid Balance -1473.24 Physical Exam General Appearance: NAD Head: NCAT EENT: no gross abnormalities Neck: no JVD appreciated Cardiac: NS1S2 Lungs: CTAB Abdomen: soft, NT/ND Musculoskeletal: ROM wnl Extremities: no pitting edema Neurological: no focal deficits Skin: warm, dry Psychiatric: normal mentation Weight Current Weight Dosing Weight: 110.5 kg (06/27/24) Current Weight: 109.2 kg (06/29/24) Medications Medications (36) Active Scheduled: (19) albuterol - ipratropium 2.5 mg-0.5 mg/3 mL Inhal Amrita UD 3 mL, Inhalation, TIDRT ammonium lactate Lotion 12% 1 isabela, Topical, BID aspirin 81 mg Chewable 81 mg 1 tab(s), Oral, qDayM atorvastatin 40 mg tablet 40 mg 1 tab(s), Oral, qHS clopidogrel 75 mg Tablet 75 mg 1 tab(s), Oral, qDay ferrous sulfate 325 mg Tablet 325 mg 1 tab(s), Oral, qDay insulin glargine 18 unit(s) 0.18 mL, Subcutaneous (INT), qHS insulin lispro 100 units/mL Soln (3 mL) Give 0-15 units/dose, Subcutaneous, TIDAC insulin lispro 100 units/mL Soln (3 mL) 5 unit(s) 0.05 mL, Subcutaneous, with lunch insulin lispro 100 units/mL Soln (3 mL) 5 unit(s) 0.05 mL, Subcutaneous, with breakfast insulin lispro 100 units/mL Soln (3 mL) 5 unit(s) 0.05 mL, Subcutaneous, with supper ipratropium 42 mcg/inh nasal spray (0.06%) 15 mL bottle 84 mcg 2 spray(s), Intranasal, TID levothyroxine 150 mcg tablet 150 mcg 1 tab(s), Oral, qDayAC lidocaine patch REMOVAL 1 EA, Miscellaneous, q24h lidocaine topical 4% patch 1 patch(es), Transdermal, q24h metoprolol succinate 25 mg ER tablet 12.5 mg 0.5 tab(s), Oral, Once pantoprazole 40 mg EC tablet 40 mg 1 tab(s), Oral, qDayAC polyethylene glycol 3350 - UD packet 17 gram(s) 15 mL, Oral, qDay senna 8.6 mg Tablet 8.6 mg 1 tab(s), Oral, BID Continuous: (2) amiodarone 450 mg [1 mg/min] + sodium chloride MARYAM 250 mL 250 mL, Intravenous, 33.33 mL/hr heparin 25,000 unit(s) [12 unit(s)/kg/hr] + Dextrose 5% Premix Diluent 250 mL 250 mL, Intravenous, 13.26 mL/hr PRN: (15) albuterol - ipratropium 2.5 mg-0.5 mg/3 mL Inhal Amrita UD 3 mL, Inhalation, q2hRT albuterol - ipratropium 2.5 mg-0.5 mg/3 mL Inhal Amrita UD 3 mL, Inhalation, q4hRT albuterol 0.083% Soln UD (2.5mg/3 mL) 2.5 mg 3 mL, Inhalation, q2hRT dextrose 50% Solution Disp syringe 50 mL 12.5 gram(s) 25 mL, IV Push, AsDirected heparin 5,000 units/mL (1 mL) vial 4,000 unit(s) 0.8 mL, IV Push, q6h magnesium sulfate 4 gram(s)/100mL PMX 4 g 100 mL, IV Piggyback, AsDirected magnesium sulfate 50% (500mg/mL) 6 g 12 mL, IV Piggyback, AsDirected magnesium sulfate PMX 2 g 50 mL, IV Piggyback, AsDirected methocarbamol 500 mg Tablet 500 mg 1 tab(s), Oral, TID potassium chloride (PMX) 20 mEq/100 mL 20 mEq 100 mL, IV Piggyback, AsDirected potassium chloride 20 mEq ER tablet 20 mEq 1 tab(s), Oral, AsDirected potassium chloride 20 mEq ER tablet 40 mEq 2 tab(s), Oral, AsDirected potassium chloride 20 mEq ER tablet 40 mEq 2 tab(s), Oral, AsDirected tramadol 50 mg Tablet 50 mg 1 tab(s), Oral, q6h trimethobenzamide 200 mg/2 mL Solution 200 mg 2 mL, Intramuscular, q6h Lab Results 06/29 03:42 WBC: 7.7 Hgb: 10.5 L Hct: 30.7 L Platelet: 92 L Neutrophil %: 71.6 Glucose Level: 235 H Sodium Level: 138 Potassium Level: 3.6 BUN: 17.0 Creatinine Lvl (s): 0.77 EKG EKG - Completed -- 06/27/24 11:47:00 EST, admit EKG - Completed -- 06/27/24 12:23:00 EST Assessment/Plan Orders: ammonium lactate topical(ammonium lactate 12% topical lotion), 1 isabela, Topical, BID metoprolol(Toprol-XL), 12.5 mg= 0.5 tab(s), Oral, Once Communication Order (continuous), 06/29/24 14:16:00 EST, Re-consult skin team if wound deteriorates, or for new skin integrity impairments, Constant order Cushion Waffle 17x17 Chair Medium, Valveless ([id number])(Waffle Cushion Chair Medium ([id number])), 06/29/24 14:17:00 EST, Quantity 1, Weight: 110.5, 06/29/24 14:17:00 EST Hydrofiber Aquacel Silver Dressing ([id number]), 06/29/24 14:17:00 EST, Quantity 2, Weight: 110.5, 06/29/24 14:17:00 EST Wound Care, 06/29/24 14:16:00 EST, Site: Ankle, left, Cleanse with: Normal saline, Apply to Wound Bed: Aquacel AG 4x4, Cover with: Foam dressing, q3day, Cut Aquacel AG to fit Change PRN if impaired Unresponsive Episode: Syncope versus out of hospital Cardiac Arrest Wide Complex Tacycardia - concerning for VTach PVCs CAD s/p PCI to RCA Acute on Chronic HFpEF AFIB - current in afib B/l blindness Hypothyroidism 74M with hx of afib, HFpEF, DM, hyperlipidemia, 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 performed CPR. EMS arrived, delivered 1 shock with ROSC. Reported rhythm was PEA on documentation. Initial labs show stable Cr 1.01, K 3.9, 1.9. Troponin 400's Documentation states is doubting this was cardiac arrest. Patient noted to have telemetry strips showing wide complex tachycardia concerning for VTach. Cardiology Dr. Chavez consulted, concerned for Vtach. Echo showed preserved EF 60%. Patient underwent [facility] s/p PCI/KESHIA to RCA on 06/25/24. Documentation on 06/27/24 morning states that shalonda blue was called for sustained Vtach with a pulse.Initial episode self resolved, 2nd and 3rd episodes patient was defibrillated. Started on IV amiodarone. Currently patient reports his body is sore, especially his chest and ribs from CPR/defibrillation. CXR here shows pulmonary edema. Impression / Plan: Patient has concerning wide complex tachyarrhythmia suspected to be VTach causing syncope versus cardiac arrest. Current rhythm is afib with frequent PVCs Continue amiodarone drip Heparin drip for afib Aspirin, plavix for recent PCI/KESHIA Stat labs ordered Patient nearing euvolemia, will discontinue IV Lasix. 2D TTE personally reviewed, EF is 50 to 55% without any regional wall motion abnormalities, right atrial pressure approximately 8 mm per mercury. Diuresed well with net negative volume status of 1.5 L. Telemetry monitoring EP consult for ICD consideration Hospitalist consulted for DM and other medicine issues Will likely require AICD for secondary prevention. Digitally Signed by ANT JACKSON MD on 06/29/2024 04:15 PM [id number] Note Reason for Consultation Admission From: Home Consult to Skin Team Nurse - Ordered -- 06/27/24 13:44:00 EST, Impaired skin integrity Skin Team Findings Vitals and Measurements T: 37.0 C (Oral) TMIN: 36.4 C (Oral) TMAX: 37.0 C (Oral) HR: 77 (Monitored) RR: 20 BP: 109/71 SpO2:100% WT: 109.2 kg Pressure Area Details No pressure injuries noted. ------Incision/Wound------ Ankle Left Outer - Incision, Wound Cleansing: Cleaned with normal saline Ankle Left Outer - Incision, Wound Dressing Assessment: Dry, Intact, Drainage present Ankle Left Outer - Incision, Wound Dressing/Activity: Changed Ankle Left Outer - Incision, Wound Dressing: Foam Ankle Left Outer - Incision, Wound Surrounding Tissue: Edematous, Maceration, Moist Ankle Left Outer - Non-Pressure Ulcer Type: Undiagnosed ulcer Ankle Left Outer - Skin Abnormality Color: [place], White, Yellow Ankle Left Outer - Skin Abnormality Type: Non-pressure ulcer Ankle Left Outer - Wound Exudate Amount: Moderate Ankle Left Outer - Wound Exudate Odor: None Ankle Left Outer - Wound Exudate Type: Serous ------Incision/Wound Measurements------ Ankle Left Outer - Incision, Wound Depth: 0.3 cm Ankle Left Outer - Incision, Wound Length: 2 cm Ankle Left Outer - Incision, Wound Width: 1.3 cm Assessments and Recommendations ------Assessments------ Current Skin/Wound Interventions: Hospital bed, Transparent silicone dressing Present For Wound Observation: Nurse ------Recommendations------ Recommended Skin/Wound Interventions: Seat cushion, Turn and reposition every 2 hours, Consult Dietitian, Proposed orders sent to physician Education Individuals Taught: Patient Learning Readiness: low motivation level Barriers to Learning: Vision impairment Teaching Method: Explanation Digitally Signed by Sheridan Gross RN on 06/29/2024 11:30 AM [id number] Cardiology Consult note Date of Service June 29, 2024 History of Present Illness Patient is a 74-year-old male with medical history significant for persistent atrial fibrillation on Xarelto, chronic right bundle branch, hyperlipidemia, type 2 diabetes, COPD, former tobacco use, hypothyroidism, bilateral blindness, history of HFpEF who presents as a transfer from [facility] [place] after an unresponsive event on June 24, 2024. Patient was noted to be in ventricular tachycardia status post defibrillation, patient was neurologically intact. After being admitted to the floor for concern for sepsis and aspiration pneumonia, patient continued to have sinus bradycardia with pauses and troponins were in the 400s hence patient underwent left heart cath which revealed left main 30% stenosis, mild luminal irregularities of LAD, proximal circumflex 40% stenosis, ostialRCA 80% stenosis status post PCI of RCA on 06/25/2024. On 06/27/2024, patient apparently had another episode of unresponsiveness and was noted to be ventricular tachycardia, chest compressions were initiated, by the time the code team arrived, patient was talking alert and had a palpable pulse without requiring defibrillation. Then an EKG was obtained and he went into V. tach again, was unresponsive, underwent 1 defibrillation. Was advised to start on IV amiodarone and transfer was facilitated for ICD evaluation. Echocardiogram was performed at outside hospital [facility] on 06/25/2024 which showed estimated EF of 60%, mild biatrial dilatation, trivial MR, trivial AI Review of Systems 12 point ROS negative unless mentioned in HPI Physical Exam Vitals and Measurements T: 37.0 C (Oral) TMIN: 36.4 C (Oral) TMAX: 37.0 C (Oral) HR: 77 (Monitored) RR: 20 BP: 109/71 SpO2:100% WT: 109.2 kg Weight Current Weight Dosing Weight: 110.5 kg (06/27/24) Current Weight: 109.2 kg (06/29/24) Constitutional: Oriented to time, place, and person well developed well nourished Cardiovascular: JVD not elevated, S1 S2 present,No added sounds, no lower extremity edema Abdomen: Nontender Musculoskeletal system: general/bilateral Normal movement of all extremities Neurological: N FND Skin: color and pigmentation is normal Lab Results 06/29 03:42 WBC: 7.7 Hgb: 10.5 L Hct: 30.7 L Platelet: 92 L Neutrophil %: 71.6 Glucose Level: 235 H Sodium Level: 138 Potassium Level: 3.6 BUN: 17.0 Creatinine Lvl (s): 0.77 06/28 03:58 WBC: 7.1 Hgb: 11.0 L Hct: 31.8 L Platelet: 82 L Neutrophil %: 72.5 Glucose Level: 277 H Sodium Level: 138 Potassium Level: 3.7 BUN: 21.0 Creatinine Lvl (s): 0.82 Assessment/Plan Recurrent VT s/p 48 hours of revascularization Persistent afib on subtherapeutic doses of Xarelto at home CAD s/p PCI to ostial RCA 06/25/24, 30% Lmain, 40%proximal Lcx Type 2 DM COPD not on home O2 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 tach status post defibrillation at home. Was noted to be in A-fib with complete heart block on the medical floor after being admitted with bradycardia and ventricular pauses which thereby then prompted left heart cath on 06/25 status post re vascularization of the ostial RCA. 48 hours post revascularization, he had another episode of ventricular tachycardia and underwent successful defibrillation, was started on IV amiodarone and transferred to [place] for ICD evaluation. Echocardiogram repeated during this hospital stay shows EF of about 50 to 55% and Mildly increased RV cavity size, mildly increased RVSP. Currently on IV amiodarone. Pt was on subtherapeutic doses of Xarelto as an outpatient (10mg for afib). We will plan for ICD placement either tomorrow or more likely Saturday for secondary prevention. In the meantime, will continue IV heparin. Procedure/Surgical History Coronary angioplasty: 06/24/24 Hernia repair Medications Inpatient albuterol 2.5 mg/3 mL (0.083%) inhalation solution, 2.5 mg= 3 mL, Inhalation, q2hRT, PRN Amiodarone for IV 450 mg [1 mg/min] + NS 250 mL aspirin, 81 mg= 1 tab(s), Oral, qDayM atorvastatin, 40 mg= 1 tab(s), Oral, qHS Dextrose 50% IV Push, 12.5 gram(s)= 25 mL, IV Push, AsDirected, PRN DuoNeb, 3 mL, Inhalation, q4hRT, PRN DuoNeb, 3 mL, Inhalation, TIDRT DuoNeb, 3 mL, Inhalation, q2hRT, PRN HumaLOG 100 units/mL subcutaneous solution, 5 unit(s)= 0.05 mL, Subcutaneous, with lunch HumaLOG 100 units/mL subcutaneous solution, 5 unit(s)= 0.05 mL, Subcutaneous, with breakfast HumaLOG 100 units/mL subcutaneous solution, 5 unit(s)= 0.05 mL, Subcutaneous, with supper HumaLOG 100 units/mL subcutaneous solution, Give 0-15 units/dose, Subcutaneous, TIDAC ipratropium 42 mcg/inh (0.06%) nasal spray, 84 mcg= 2 spray(s), Intranasal, TID Iron (ferrous sulfate) oral tablet, 325 mg= 1 tab(s), Oral, qDay Lantus, 18 unit(s)= 0.18 mL, Subcutaneous (INT), qHS Lasix, 40 mg= 4 mL, IV Push, BID levothyroxine, 150 mcg= 1 tab(s), Oral, qDayAC lidocaine (lidocaine Patch REMOVAL), 1 EA, Miscellaneous, q24h lidocaine 4% topical patch, 1 patch(es), Transdermal, q24h magnesium sulfate for IV bolus, 2 gram(s)= 50 mL, IV Piggyback, AsDirected, PRN magnesium sulfate for IV bolus, 4 gram(s)= 100 mL, IV Piggyback, AsDirected, PRN magnesium sulfate for IV bolus Miralax Powder Packet, 17 gram(s)= 15 mL, Oral, qDay Plavix, 75 mg= 1 tab(s), Oral, qDay potassium chloride, 20 mEq= 1 tab(s), Oral, AsDirected, PRN potassium chloride, 40 mEq= 2 tab(s), Oral, AsDirected, PRN potassium chloride, 40 mEq= 2 tab(s), Oral, AsDirected, PRN potassium chloride bolus, 20 mEq= 100 mL, IV Piggyback, AsDirected, PRN Protonix, 40 mg= 1 tab(s), Oral, qDayAC Robaxin, 500 mg= 1 tab(s), Oral, TID, PRN senna, 8.6 mg= 1 tab(s), Oral, BID Tigan, 200 mg= 2 mL, Intramuscular, q6h, PRN traMADol, 50 mg= 1 tab(s), Oral, q6h, PRN Xarelto, 20 mg= 1 tab(s), Oral, with supper Home ferrous sulfate 325 mg (65 mg elemental iron) oral delayed release tablet, 325 mg= 1 tab(s), Oral, qDay ipratropium 42 mcg/inh (0.06%) nasal spray, 84 mcg= 2 spray(s) Lantus 100 units/mL10 ml vial solution, 10 unit(s)= 0.1 mL, Subcutaneous, qAM levothyroxine 150 mcg (0.15 mg) oral tablet, 150 mcg= 1 tab(s), Oral, qDayAC Lyumjev KwikPen 200 units/mL subcutaneous solution, 12 unit(s) MetFORMIN (Eqv-Glucophage XR) 500 mg oral tablet, EXTENDED RELEASE pravastatin 40 mg oral tablet, 40 mg= 1 tab(s), Oral, qHS traMADol 25 mg oral tablet, 50 mg= 2 tab(s), Oral, q6h, PRN venlafaxine 225 mg oral tablet, extended release Vitamin D3, 100 mcg= 1 tab(s), Oral, Daily Xarelto 10 mg oral tablet, 10 mg= 1 tab(s), Oral, qDay Allergies Shellfish Hives Social History Alcohol Use: Past. Type: Beer. Started at age: 38 Years., 06/27/2024 Home/Environment Living situation: Home/Independent. Safe place to go: Yes. Financial concerns: No., 06/27/2024 Nutrition/Health Type of diet: Diabetic. Caffeine intake amount: soda 12oz BID, coffee 1cup/day., 06/27/2024 Sexual Sexually active: No. Self described orientation: Straight or heterosexual. Gender Identity: Identifies as male., 06/27/2024 Substance Abuse Use: Never., 06/27/2024 Tobacco Nicotine Use: 10 or more cigarettes (1/2 pack or more)/day in last 30 days, Former smoker, quit more than 30 days ago. Type: Cigarettes., 06/27/2024 Family History Cancer: Mother. Heart attack: Brother. Heart disease: Brother. Health Status Family Member(s) Immunizations SARS-CoV-2 mRNA (tozinameran) vaccine: 0.3 unknown unit (01/27/21) SARS-CoV-2 mRNA (tozinameran) vaccine: 0.3 unknown unit (01/06/21) tetanus/diphth/pertuss (Tdap) adult/adol: 0.5 unknown unit (01/11/20) Digitally Signed by YOSI VERA MD on 06/29/2024 04:24 PM [id number] Note Date of Service 06/29/2024 Chief Complaint 74-year-old male with a history of insulin-dependent type 2 diabetes, blindness right side due to mechanical injury, left side due to cataract surgery, COPD without chronic respiratory failure, former tobacco user, smoked about 45 years and stopped about 10 years ago, hypothyroidism, depression, chronic iron deficiency anemia, HFpEF, hyperlipidemia, A-fib on Xarelto who presented initially to [facility] after having [id number] cardiac arrest, was noted to have wide-complex tachycardia, apparently underwent a heart cath 06/25/2024 at [facility] with RCA stent, CAD, echocardiogram with preserved ejection fraction, apparently had a CODE BLUE called and was noted to be in V. tach, received multiple shocks, was then transferred to [place]. Per documentation, patient was initially a sepsis alert, received a dose of vancomycin and Zosyn, chest x-ray apparently showed a small right infiltrate at the base concerning for possible aspiration per the documentation but no imaging to review. X-ray performed here is consistent with cardiogenic pulmonary edema, no focal infiltrate/consolidation, patient was without leukocytosis cough for fever and therefore antibiotics were not continued. Currently with atrial fibrillation on amiodarone drip, hospitalist team consulted for medical management. Subjective Patient states that he is no longer having nausea today, he was able to complete his entire breakfast this morning. He stated that he still has not had a bowel meant but he thinks he is ready to go. He is still on 2 L, states is not having any chest pain, denies any lightheadedness or dizziness today. Objective Vitals and Measurements T: 37.0 C (Oral) TMIN: 36.4 C (Oral) TMAX: 37.0 C (Oral) HR: 77 (Monitored) RR: 20 BP: 109/71 SpO2:100% WT: 109.2 kg Intake and Output 7AM Yesterday to 7AM Today Intake and Output (Last 24 hours) Intake Administration Information 761.76 Oral Intake 580.00 Output Urinary Catheter Output: 3175.00 Urine Count 2.00 Diaper Count 1.00 Total Summary Total Intake 1341.76 Total Output 3175.00 Fluid Balance -1833.24 Physical Exam Resting in bed, no acute distress. Lower extremities without any edema. Stasis dermatitis noted. Abdomen is soft, nondistended, nontender, obese. Active bowel sounds. Impaired vision. Weight Current Weight Dosing Weight: 110.5 kg (06/27/24) Current Weight: 109.2 kg (06/29/24) Medications Medications (35) Active Scheduled: (18) albuterol - ipratropium 2.5 mg-0.5 mg/3 mL Inhal Amrita UD 3 mL, Inhalation, TIDRT aspirin 81 mg Chewable 81 mg 1 tab(s), Oral, qDayM atorvastatin 40 mg tablet 40 mg 1 tab(s), Oral, qHS clopidogrel 75 mg Tablet 75 mg 1 tab(s), Oral, qDay ferrous sulfate 325 mg Tablet 325 mg 1 tab(s), Oral, qDay furosemide 40 mg/4 mL vial 40 mg 4 mL, IV Push, BID insulin glargine 14 unit(s) 0.14 mL, Subcutaneous (INT), qHS insulin lispro 100 units/mL Soln (3 mL) Give 0-15 units/dose, Subcutaneous, TIDAC insulin lispro 100 units/mL Soln (3 mL) 5 unit(s) 0.05 mL, Subcutaneous, with lunch insulin lispro 100 units/mL Soln (3 mL) 5 unit(s) 0.05 mL, Subcutaneous, with breakfast insulin lispro 100 units/mL Soln (3 mL) 5 unit(s) 0.05 mL, Subcutaneous, with supper ipratropium 42 mcg/inh nasal spray (0.06%) 15 mL bottle 84 mcg 2 spray(s), Intranasal, TID levothyroxine 150 mcg tablet 150 mcg 1 tab(s), Oral, qDayAC lidocaine patch REMOVAL 1 EA, Miscellaneous, q24h lidocaine topical 4% patch 1 patch(es), Transdermal, q24h pantoprazole 40 mg EC tablet 40 mg 1 tab(s), Oral, qDayAC polyethylene glycol 3350 - UD packet 17 gram(s) 15 mL, Oral, qDay senna 8.6 mg Tablet 8.6 mg 1 tab(s), Oral, BID Continuous: (2) amiodarone 450 mg [1 mg/min] + sodium chloride MARYAM 250 mL 250 mL, Intravenous, 33.33 mL/hr heparin 25,000 unit(s) [9.05 unit(s)/kg/hr] + Dextrose 5% Premix Diluent 250 mL 250 mL, Intravenous, 10 mL/hr PRN: (15) albuterol - ipratropium 2.5 mg-0.5 mg/3 mL Inhal Amrita UD 3 mL, Inhalation, q2hRT albuterol - ipratropium 2.5 mg-0.5 mg/3 mL Inhal Amrita UD 3 mL, Inhalation, q4hRT albuterol 0.083% Soln UD (2.5mg/3 mL) 2.5 mg 3 mL, Inhalation, q2hRT dextrose 50% Solution Disp syringe 50 mL 12.5 gram(s) 25 mL, IV Push, AsDirected heparin 5,000 units/mL (1 mL) vial 4,000 unit(s) 0.8 mL, IV Push, q6h magnesium sulfate 4 gram(s)/100mL PMX 4 g 100 mL, IV Piggyback, AsDirected magnesium sulfate 50% (500mg/mL) 6 g 12 mL, IV Piggyback, AsDirected magnesium sulfate PMX 2 g 50 mL, IV Piggyback, AsDirected methocarbamol 500 mg Tablet 500 mg 1 tab(s), Oral, TID potassium chloride (PMX) 20 mEq/100 mL 20 mEq 100 mL, IV Piggyback, AsDirected potassium chloride 20 mEq ER tablet 20 mEq 1 tab(s), Oral, AsDirected potassium chloride 20 mEq ER tablet 40 mEq 2 tab(s), Oral, AsDirected potassium chloride 20 mEq ER tablet 40 mEq 2 tab(s), Oral, AsDirected tramadol 50 mg Tablet 50 mg 1 tab(s), Oral, q6h trimethobenzamide 200 mg/2 mL Solution 200 mg 2 mL, Intramuscular, q6h Lab Results 06/29 03:42 WBC: 7.7 Hgb: 10.5 L Hct: 30.7 L Platelet: 92 L Neutrophil %: 71.6 Glucose Level: 235 H Sodium Level: 138 Potassium Level: 3.6 BUN: 17.0 Creatinine Lvl (s): 0.77 06/28 03:58 WBC: 7.1 Hgb: 11.0 L Hct: 31.8 L Platelet: 82 L Neutrophil %: 72.5 Glucose Level: 277 H Sodium Level: 138 Potassium Level: 3.7 BUN: 21.0 Creatinine Lvl (s): 0.82 Imaging Results and Diagnostics XR Chest 1 View Result Date: June 27, 2024 Verified By: CHAIM WORKMAN DO CLINICAL STATEMENT: IMPRESSION: Mild pulmonary edema and small bilateral pleural effusions. EKG EKG - Completed -- 06/27/24 11:47:00 EST, admit EKG - Completed -- 06/27/24 12:23:00 EST Assessment/Plan Acute hypoxic respiratory failure Cardiogenic pulmonary edema Hyperglycemia with history of type 2 diabetes mellitus Nausea Slow transit constipation Wide-complex tachycardia, concerning for V. tach Atrial fibrillation, currently rate controlled, known history Possible feu-tr-uxhieodt cardiac arrest CAD status post PCI to RCA 06/25/2024 Generalized weakness, fatigue, pain involving the chest likely from the recent defibrillation and CPR Known history of atrial fibrillation on Xarelto, HFpEF, insulin-dependent type 2 diabetes mellitus,hyperlipidemia, blindness, depression, iron deficiency anemia, COPD, vitamin D deficiency, hypothyroidism, chronic anemia, former tobacco user DVT prophylaxis: Currently on IV heparin CODE STATUS: Full code Plan: Currently on 2 L saturating well. No evidence of any COPD exacerbation, no wheezing that I could appreciate. Continue with breathing treatments as ordered, and as needed. Has been seen by speech therapy, currently on a modified diet. Does not appear to have any aspiration events. Continue to monitor. Recommend outpatient GI evaluation in the outpatient Continues to have suboptimal blood glucose levels: Diet was reordered but did not include the calorie restriction. This has been corrected. Increase Lantus to 18 units each night, continue with the current mealtime insulin and adjust accordingly. Tigan as needed for nausea. Continue with sliding scale insulin. A1c reviewed, 7.1. Acapella device and incentive spirometer. Patient states that he has not had a bowel movement since Saturday: Continue current bowel regimen If no bowel movement by end of day, can consider either a suppository such as Dulcolax or trial a dose of lactulose such as 20 mg. PT/OT Plan of care discussed with patient and nursing staff. Will follow This is a note transcribed by me, the attending physician on service using the 'DATY' dictation software. Please excuse any grammatical errors, repetitions/duplications if any are present in the entirety of this note. Thank you. Digitally Signed by PITER BRUSH MD on 06/29/2024 09:54 AM [id number] Note* Exam Date Time Procedure Performing Provider Status 06/29/24 9:34 AM VL Venous US/Doppler One Arm (for DVT). 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, left side due to cataract surgery, COPD without chronic respiratory failure, former tobacco user, smoked about 45 years and stopped about 10 years ago, hypothyroidism, depression, chronic iron deficiency anemia, HFpEF, hyperlipidemia, A-fib on Xarelto who presented initially to [facility] after having [id number]-[id number] cardiac arrest, was noted to have wide-complex tachycardia, apparently underwent a heart cath 06/25/2024 at [facility] with RCA stent, CAD, echocardiogram with preserved ejection fraction, apparently had a CODE BLUE called and was noted to be in V. tach, received multiple shocks, was then transferred to [place]. Per documentation, patient was initially a sepsis alert, received a dose of vancomycin and Zosyn, chest x-ray apparently showed a small right infiltrate at the base concerning for possible aspiration per the documentation but no imaging to review. X-ray performed here is consistent with cardiogenic pulmonary edema, no focal infiltrate/consolidation, patient was without leukocytosis cough for fever and therefore antibiotics were not continued. Currently with atrial fibrillation on amiodarone drip, hospitalist team consulted for medical management. Subjective Patient stated that from 3 to 6 AM, he did not have a good night sleep, he stated that he had a muscle relaxer and felt like he was dizzy lightheaded and sick to the stomach. He had some nausea this morning, did not really feel like he wanted to eat breakfast. No emesis. He also stated that he was try to have a bowel movement but he has not had 1 since Saturday. He otherwise denies any chest pain currently, no lightheadedness or dizziness that is ongoing. No cough. Saturating well on 1 L. Objective Vitals and Measurements T: 37.0 C (Oral) TMIN: 36.4 C (Oral) TMAX: 37.0 C (Oral) HR: 67 (Monitored) RR: 20 BP: 128/64 SpO2:96% HT: 190 cm WT: 110.5 kg BMI: 30.61 Intake and Output 7AM Yesterday to 7AM Today Intake and Output (Last 24 hours) Intake Oral Intake 1500.00 Administration Information 422.08 Output Urinary Catheter Output: 2650.00 Stool Count 0.00 Urine Count 1.00 Total Summary Total Intake 1922.08 Total Output 2650.00 Fluid Balance -727.92 Physical Exam General Appearance: Resting in bed, no acute distress Head: Normocephalic, atraumatic EENT: Right sided prior iron injury with blindness, left side with diminished vision, legally blind Neck: Supple, no JVD, no mass Cardiac: s1s2, irregularly irregular, no murmurs or rubs or gallops that I could appreciate Lungs: Clear to auscultation bilaterally, no wheezing or rhonchi, bibasilar crackles noted Abdomen: Soft , Nontender, no organomegaly, bowel sounds heard Musculoskeletal: Full ROM , no gross deformities Extremities: No rash or ulcers or pedal edema Neurological: Alert, oriented x 3, grossly no focal neurological deficits Skin: No rash or ulcers Weight Dosing Weight: 110.5 kg (06/27/24) Medications Medications (32) Active Scheduled: (15) albuterol - ipratropium 2.5 mg-0.5 mg/3 mL Inhal Amrita UD 3 mL, Inhalation, TIDRT aspirin 81 mg Chewable 81 mg 1 tab(s), Oral, qDayM atorvastatin 40 mg tablet 40 mg 1 tab(s), Oral, qHS clopidogrel 75 mg Tablet 75 mg 1 tab(s), Oral, qDay ferrous sulfate 325 mg Tablet 325 mg 1 tab(s), Oral, qDay furosemide 40 mg/4 mL vial 40 mg 4 mL, IV Push, BID insulin glargine 10 unit(s) 0.1 mL, Subcutaneous (INT), qHS insulin lispro 100 units/mL Soln (3 mL) 8 unit(s) 0.08 mL, Subcutaneous, with lunch insulin lispro 100 units/mL Soln (3 mL) 8 unit(s) 0.08 mL, Subcutaneous, with supper insulin lispro 100 units/mL Soln (3 mL) 8 unit(s) 0.08 mL, Subcutaneous, with breakfast insulin lispro 100 units/mL Soln (3 mL) Give 0-15 units/dose, Subcutaneous, TIDAC ipratropium 42 mcg/inh nasal spray (0.06%) 15 mL bottle 84 mcg 2 spray(s), Intranasal, TID levothyroxine 150 mcg tablet 150 mcg 1 tab(s), Oral, qDayAC lidocaine patch REMOVAL 1 EA, Miscellaneous, q24h lidocaine topical 4% patch 1 patch(es), Transdermal, q24h Continuous: (2) amiodarone 450 mg [1 mg/min] + sodium chloride MARYAM 250 mL 250 mL, Intravenous, 33.33 mL/hr heparin 25,000 unit(s) [9.05 unit(s)/kg/hr] + Dextrose 5% Premix Diluent 250 mL 250 mL, Intravenous, 10 mL/hr PRN: (15) albuterol - ipratropium 2.5 mg-0.5 mg/3 mL Inhal Amrita UD 3 mL, Inhalation, q2hRT albuterol - ipratropium 2.5 mg-0.5 mg/3 mL Inhal Amrita UD 3 mL, Inhalation, q4hRT albuterol 0.083% Soln UD (2.5mg/3 mL) 2.5 mg 3 mL, Inhalation, q2hRT dextrose 50% Solution Disp syringe 50 mL 12.5 gram(s) 25 mL, IV Push, AsDirected heparin 5,000 units/mL (1 mL) vial 4,000 unit(s) 0.8 mL, IV Push, q6h magnesium sulfate 4 gram(s)/100mL PMX 4 g 100 mL, IV Piggyback, AsDirected magnesium sulfate 50% (500mg/mL) 6 g 12 mL, IV Piggyback, AsDirected magnesium sulfate PMX 2 g 50 mL, IV Piggyback, AsDirected methocarbamol 500 mg Tablet 500 mg 1 tab(s), Oral, TID potassium chloride (PMX) 20 mEq/100 mL 20 mEq 100 mL, IV Piggyback, AsDirected potassium chloride 20 mEq ER tablet 20 mEq 1 tab(s), Oral, AsDirected potassium chloride 20 mEq ER tablet 40 mEq 2 tab(s), Oral, AsDirected potassium chloride 20 mEq ER tablet 40 mEq 2 tab(s), Oral, AsDirected tramadol 50 mg Tablet 50 mg 1 tab(s), Oral, q6h trimethobenzamide 200 mg/2 mL Solution 200 mg 2 mL, Intramuscular, q6h Lab Results 06/28 03:58 WBC: 7.1 Hgb: 11.0 L Hct: 31.8 L Platelet: 82 L Neutrophil %: 72.5 Glucose Level: 277 H Sodium Level: 138 Potassium Level: 3.7 BUN: 21.0 Creatinine Lvl (s): 0.82 06/27 21:02 Glucose Level: 302 H Sodium Level: 136 Potassium Level: 3.8 BUN: 24.0 H Creatinine Lvl (s): 0.86 06/27 12:41 WBC: 10.8 Hgb: 12.0 L Hct: 35.3 L Platelet: 119 L Neutrophil %: 82.1 H Protime: 14.3 PT International Ratio: 1.2 Glucose Level: 282 H Sodium Level: 138 Potassium Level: 3.8 BUN: 22.0 Creatinine Lvl (s): 0.79 Imaging Results and Diagnostics XR Chest 1 View Result Date: June 27, 2024 Verified By: CHAIM WORKMAN DO CLINICAL STATEMENT: IMPRESSION: Mild pulmonary edema and small bilateral pleural effusions. EKG Electrocardiogram (EKG) - InProcess -- 06/27/24 11:47:00 EST, admit Electrocardiogram (EKG) - InProcess -- 01/25/25 12:23:00 EST Assessment/Plan Acute hypoxic respiratory failure Cardiogenic pulmonary edema Hyperglycemia with history of type 2 diabetes mellitus Nausea Slow transit constipation Wide-complex tachycardia, concerning for V. tach Atrial fibrillation, currently rate controlled, known history Possible dpu-da-hmsrymyv cardiac arrest CAD status post PCI to RCA 06/25/2024 Generalized weakness, fatigue, pain involving the chest likely from the recent defibrillation and CPR Known history of atrial fibrillation on Xarelto, HFpEF, insulin-dependent type 2 diabetes mellitus,hyperlipidemia, blindness, depression, iron deficiency anemia, COPD, vitamin D deficiency, hypothyroidism, chronic anemia, former tobacco user DVT prophylaxis: Currently on IV heparin CODE STATUS: Full code Plan: Patient has been afebrile. No leukocytosis. No cough. Was able to wean him down to 1 L saturating 95%. Goal saturation of 92% or greater, avoid hyperoxygenation with underlying COPD. Continue with breathing treatments as ordered, and as needed. Continue with home medications as deemed appropriate. Has complained of methocarbamol that is ordered as needed causing him dizziness and lightheadedness, dose has been reduced to 50%. Can likely discontinue if the patient does not have any muscle weakness. Can consider oxycodone 2.5 mg every 6 hours as needed for pain 4-10, 5 mg every 6 hours for breakthrough. Rather than tramadol given his age for breakthrough pain Continue with modified diet as ordered, but changed to include calorie restriction of 1800. Await evaluation by speech therapy, currently is not describing any dysphagia to the current diet, denies any choking episodes since yesterday. If dysphagia is identified and concerns are expressed by speech therapy, can consider a modified barium swallow at a later time. Continues to have uncontrolled blood glucose levels: He states he takes Lantus 10 units in the morning. This does not appear to be sufficient at this time. Increase Lantus to 14 each night, continue with mealtime insulin at 5 units with each meal, if patient is not eating more than 50% of his tray, can hold off on giving this. Tigan as needed for nausea. Continue with sliding scale insulin. A1c reviewed, 7.1. Acapella device and incentive spirometer. Patient states that he has not had a bowel movement since Saturday: Start the patient on senna 8.6 mg twice a day. MiraLAX once a day. If no bowel movement, can consider either a suppository such as Dulcolax or trial a dose of lactulose such as 20 mg. PT/OT when deemed appropriate by the primary team. Plan of care discussed with patient and his [id number] who was present at bedside. This is a note transcribed by me, the attending physician on service using the '[email or web address]' dictation software. Please excuse any grammatical errors, repetitions/duplications if any are present in the entirety of this note. Thank you. Digitally Signed by PITER BRUSH MD on 06/28/2024 10:48 AM [id number] History and physical note Date of Service 06/27/2024 12:48:49 History of Present Illness 74M with hx of afib, HFpEF, DM, hyperlipidemia, 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 performed CPR. EMS arrived, delivered 1 shock with ROSC. Reported rhythm was PEA on documentation. Initial labs show stable Cr 1.01, K 3.9, 1.9. Troponin 400's Documentation states is doubting this was cardiac arrest. Patient noted to have telemetry strips showing wide complex tachycardia concerning for VTach. Cardiology Dr. Chavez consulted, concerned for Vtach. Echo showed preserved EF 60%. Patient underwent [facility] s/p PCI/KESHIA to RCA on 06/25/24. Documentation on 06/27/24 morning states that code blue was called for sustained Vtach with a pulse.Initial episode self resolved, 2nd and 3rd episodes patient was defibrillated. Started on IV amiodarone. Currently patient reports his body is sore, especially his chest and ribs from CPR/defibrillation. Review of Systems Per HPI, Complete ROS otherwise negative Physical Exam Vitals and Measurements T: 36.7 C (Oral) HR: 59 (Monitored) BP: 132/70 No qualifying data available. General: alert HEENT: blind b/l Neck: Trachea midline, + JVD appreciated CVS: RRR, normal S1/S2, no murmurs/rubs/gallops Lung: CTAB, no wheezes/rhonchi/rales Abd: Soft, NT/ND Extrem: WWP, no LE edema Skin: Warm, Intact Neuro: alert, spontaneous movement of all extremities Psych: Appropriate mood & affect Lab Results No 36 Hour Lab Data Assessment/Plan Unresponsive Episode: Syncope versus out of hospital Cardiac Arrest Wide Complex Tacycardia - concerning for VTach PVCs CAD s/p PCI to RCA Acute on Chronic HFpEF AFIB - current in afib B/l blindness Hypothyroidism 74M with hx of afib, HFpEF, DM, hyperlipidemia, 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 performed CPR. EMS arrived, delivered 1 shock with ROSC. Reported rhythm was PEA on documentation. Initial labs show stable Cr 1.01, K 3.9, 1.9. Troponin 400's Documentation states is doubting this was cardiac arrest. Patient noted to have telemetry strips showing wide complex tachycardia concerning for VTach. Cardiology Dr. Chavez consulted, concerned for Vtach. Echo showed preserved EF 60%. Patient underwent [facility] s/p PCI/KESHIA to RCA on 06/25/24. Documentation on 06/27/24 morning states that code blue was called for sustained Vtach with a pulse.Initial episode self resolved, 2nd and 3rd episodes patient was defibrillated. Started on IV amiodarone. Currently patient reports his body is sore, especially his chest and ribs from CPR/defibrillation. CXR here shows pulmonary edema. Impression / Plan: Patient has concerning wide complex tachyarrhythmia suspected to be VTach causing syncope versus cardiac arrest. Current rhythm is afib with frequent PVCs On IV amiodarone @1 Heparin drip for afib Aspirin, plavix for recent PCI/KESHIA Stat labs ordered Volume overloaded on exam and imaging: IV lasix 40 bid Telemetry monitoring EP consult for ICD consideration Procedure/Surgical History Coronary angioplasty: 06/24/24 Hernia repair Medications Home Medications (8) Active ipratropium 42 mcg/inh (0.06%) nasal spray 84 mcg = 2 spray(s) Lantus 100 units/mL10 ml vial solution 10 unit(s) = 0.1 mL, Subcutaneous, qAM levothyroxine 150 mcg (0.15 mg) oral tablet 150 mcg = 1 tab(s), Oral, qDayAC Lyumjev KwikPen 200 units/mL subcutaneous solution 12 unit(s) MetFORMIN (Eqv-Glucophage XR) 500 mg oral tablet, EXTENDED RELEASE pravastatin 40 mg oral tablet 40 mg = 1 tab(s), Oral, qHS venlafaxine 225 mg oral tablet, extended release Xarelto 10 mg oral tablet 10 mg = 1 tab(s), Oral, qDay Allergies No active allergies Family History Cancer: Mother. Heart attack: Brother. Heart disease: Brother. Health Status Family Member(s) Immunizations No qualifying data available. Code Status Code Status - Ordered -- 06/27/24 12:09:00 EST, Full Code, Constant Order Digitally Signed by CHANEL EDWARDS DO on 06/27/2024 03:45 PM Digitally Signed by CHANEL EDWARDS DO on 06/27/2024 03:47 PM [id number] Respiratory therapy Hospital Progress note Respiratory Therapy Evaluation Entered On: 06/27/2024 19:14 EST Performed On: 06/27/2024 19:14 EST by Maddy Cabral RRT Respiratory Therapy Evaluation RT Assessment [Frequency/Schedule] : Triage score 6-10, change frequency to TIDRT and Albuterol Q2hRT PRN per protocol Maddy Cabral CONTINUOUS IMPROVEMENT LEAD - 06/27/2024 23:19 EST RT Evaluation Steps : Chart review completed, Assessment completed: RR, HR, Auscultation, Cough, Patient Interview completed Respiratory Evaluation Triage Score : (6-10) Freq: TIDRT & Albuterol Q2hRT prn Maddy Cabral CONTINUOUS IMPROVEMENT LEAD - 06/27/2024 21:26 EST Surgical Status : No surgery Respiratory Therapy Evaluation Score : 6 aMddy Cabral RRT - 06/27/2024 21:25 EST Pulmonary Status : Current smoker Chest X-Ray : Infiltrates or atelectasis in more than one lobe or rib fractures Cough (RT) : Strong, non-productive Level of Activity : Ambulatory with assistance Mental Status : Alert, oriented and cooperative Maddy Cabral RRT - 06/27/2024 21:23 EST Respiratory Pattern (RT) : RR 10-20 BPM, Regular pattern Breath Sounds (RT) : Clear to auscultation Maddy Cabral CONTINUOUS IMPROVEMENT LEAD - 06/27/2024 19:14 EST Digitally Signed by Maddy Cabral RRT on 06/27/2024 11:22 PM [facility] [id number] Note Date of Service 06/27/2024 Reason for Consultation Medical management Referring Physician Chanel Edwards DO History of Present Illness Patient had 1 was this is a 74-year-old male with a known history of atrial fibrillation on Xarelto, HFpEF, insulin-dependent type 2 diabetes mellitus, hyperlipidemia, blindness, depression, iron deficiency anemia, COPD, vitamin D deficiency, hypothyroidism, chronic anemia, former tobacco user, who[facility] [place] [facility] for an unresponsive episode. Patientwas apparently sitting at his kitchen table and was eating breakfast and then he slowly fell forward into the table. His called 911 and instructed the to do CPR. Apparently EMS saw the patient and he was undergoing CPR by his , they provided a shock per the documentation, was later noted to be in PEA and patient immediately woke up. In the ED, patient was suspected to have sepsis, received 3 L of IV fluids, received a dose of Zosyn and vancomycin. Patient apparently had no recollection of his events. Initial vital signs arrival with a temperature of 35.9, pulse of 58, respiratory rate 19, blood pressure 98/60, 100% on 10 L nonrebreather. CBC showed a white count of 14.1, hemoglobin of 13.2, sodium of 136, potassium 3.9, creatinine of 1.01, BUN 21, blood glucose of 198. Troponin was elevated at 109. Lactic acid of 1.9, went up to 2.4. Troponin also went up to 260. Per the patient's , he has been having apparently choking episodes, the day prior to this event, he probably had a choking episode but this improved and therefore he did not have to go to the emergency room at that time. Patient apparently had a chest x-ray which the ED physician stating showed a right lower lobe infiltrate, although the report says no interval change. I cannot review the images myself. Troponins went up to as much as 400s, patient had telemetry strips that were showing wide-complex tachycardia, concerning for V. tach. Cardiology was consulted, He had an echocardiogram which showed ejection fraction of 60%, mild TR, mild AR. He underwent a left heart cath with evidence of CAD, apparently had a drug-eluting stent to the RCA on 06/25/2024. Currently on the morning of 06/27/2024, patient had a CODE BLUE for sustained V. tach but was noted to have a pulse, initial episode self resolved, second and third episodes patient was defibrillated. He started on IV amiodarone. He was transferred to the [facility] for further care. Currently, patient is on aspirin statin and Plavix, also on Lasix IV 40 mg twice a day, started on amiodarone drip as well as heparin drip. I was consulted to follow-up for suspected pneumonia while he received antibiotics there, as well as medical management for his diabetes and chronic medical conditions. On arrival to our hospital, patient CBC shows a white count of 10.8, hemoglobin of 12, platelets of119, glucose 282, sodium within normal limits, potassium 3.8, creatinine 0.79, magnesium 1.7. LFTs within normal limits. Albumin 3. Lactic acid of 2.7. A1c was noted to be 7.1. proBNP of 1187. TSH 2. Had a chest x-ray which shows mild pulmonary edema and small bilateral pleural effusions. Personally reviewed the chest x-ray, I see cephalization of his vessels, I do not see a focal consolidation or infiltrate, this is in line with more pulmonary edema, cardiogenic pulmonary edema rather than pneumonia. Vital signs with a blood pressure of 123/55, heart rate of 68, respirate of 20. He is currently on 4 L saturating 97%. Afebrile with a last temperature of 36.4. Review of Systems Constitutional: denies Fevers and chills , no loss of appetite, denies fatigue or weight change Eyes: Denies double vision/blurring of vision/flashes or floaters Ears, Nose, Mouth & Throat: Denies any tinnitus/hearing loss/sinus congestion/nasal discharge/sore throat Cardiovascular: Denies any chest pain/shortness of breath/hemoptysis/palpitations/diaphoresis Respiratory: Denies any shortness of breath/cough/productive sputum/hemoptysis Gastrointestinal: Denies any abdominal pain/nausea/vomiting/diarrhea/hematochezia/hematemesis/melena Genitourinary: Denies any dysuria/hematuria Musculoskeletal: denies joint pain or joint swelling or deformities Skin: No ulcers or rash Neurological: denies Weakness or numbness of extremities/facial droop/loss of balance Endocrine: Denies any heat or cold intolerance/polyuria/polydipsia/polyphagia Hematologic/Lymphatic: denies lymphadenopathy Allergic/Immunologic: Denies any seasonal allergy/sneezing/tearing from the eyes Physical Exam Vitals and Measurements T: 36.4 C (Oral) TMIN: 36.4 C (Oral) TMAX: 36.7 C (Oral) HR: 52 (Monitored) RR: 20 BP: 115/54 SpO2:97% HT: 190 cm WT: 110.5 kg BMI: 30.61 Weight Dosing Weight: 110.5 kg (06/27/24) General Appearance: Patient comfortably lying on bed, not in acute distress Head: Normocephalic, atraumatic EENT: PERRLA, moist mucous membranes Neck: Supple, no JVD, no mass Cardiac: s1s2,RRR, no murmurs or rubs or gallops Lungs: Clear to auscultation bilaterally, no wheeze, rhonchi or crackles Abdomen: Soft , Nontender, no organomegaly, bowel sounds heard Musculoskeletal: Full ROM , no gross deformities Extremities: No rash or ulcers or pedal edema Neurological: Alert, oriented x 3, grossly no focal neurological deficits Skin: No rash or ulcers Lab Results 06/27 12:41 WBC: 10.8 Hgb: 12.0 L Hct: 35.3 L Platelet: 119 L Neutrophil %: 82.1 H Protime: 14.3 PT International Ratio: 1.2 Glucose Level: 282 H Sodium Level: 138 Potassium Level: 3.8 BUN: 22.0 Creatinine Lvl (s): 0.79 Imaging Results and Diagnostics XR Chest 1 View Result Date: June 27, 2024 Verified By: CHAIM WORKMAN DO CLINICAL STATEMENT: IMPRESSION: Mild pulmonary edema and small bilateral pleural effusions. Assessment/Plan Acute hypoxic respiratory failure Concern for possible aspiration, no evidence of sepsis at present Cardiogenic pulmonary edema Wide-complex tachycardia, concerning for V. tach Bradycardia with brief pauses Possible [id number] cardiac arrest CAD status post PCI to RCA 06/25/2024 Hyperglycemia with history of type 2 diabetes mellitus Generalized weakness, fatigue, pain involving the chest likely from the recent defibrillation and CPR Known history of atrial fibrillation on Xarelto, HFpEF, insulin-dependent type 2 diabetes mellitus,hyperlipidemia, blindness, depression, iron deficiency anemia, COPD, vitamin D deficiency, hypothyroidism, chronic anemia, former tobacco user DVT prophylaxis: Currently on IV heparin CODE STATUS: Full code Plan: At this time, patient is stating that he does not really have a cough, he states that since May, he has been sort of having recurrent falls, he does not know why he falls but he suddenly goes down to the ground, he states that over the last 2 weeks, he has been having some difficulty with swallowing certain things especially if there more solid things like meat, and had a couple choking events previously but nothing serious. Continue with modified diet as ordered, speech therapy consult. Will consider a modified barium swallow evaluation for dysphagia. At present, I do not see any evidence of sepsis, the leukocytosis that is initially present along with the lactic acidosis is likely from his arrest and V. tach episodes. For now monitor without antibiotics, chest x-ray was reviewed, consistent with cardiogenic pulmonary edema rather than a focal consolidation/pneumonia. No other source of infection. Patient with hyperglycemia, no DKA. He states he takes Lantus 10 units in the morning at home, alsotakes 12 units of Humalog in the morning and 12 units in the evening. Currently, patient's blood glucose is above goal. He is able to tolerate dinner, will start the patient on Lantus 10 units now and every night. Schedule mealtime insulin 8 units 3 times a day, continue with sliding scale insulin. A1c reviewed, 7.1. Resume home medications as deemed appropriate. Hold his home metformin. Holding effexor and tramadol given his cardiac events. Wean oxygen as tolerated maintain saturation of 92% or greater. Currently no wheezing or evidence of COPD exacerbation. Continue with diuresis as ordered by cardiology. Monitor renal function, replete potassium maintaina potassium of 4, magnesium of 2. Start the patient on DuoNebs twice a day and as needed. No need for steroids at present. OutpatientPFTs. Acapella device and incentive spirometer. Repeat CBC in the morning. Monitor for any febrile illness. PT/OT when deemed appropriate by the primary team. Will follow. This is a note transcribed by me, the attending physician on service using the '[email or web address]' dictation software. Please excuse any grammatical errors, repetitions/duplications if any are present in the entirety of this note. Thank you. Procedure/Surgical History Coronary angioplasty: 06/24/24 Hernia repair Medications Inpatient Amiodarone for IV 450 mg [1 mg/min] + NS 250 mL aspirin, 81 mg= 1 tab(s), Oral, qDayM atorvastatin, 40 mg= 1 tab(s), Oral, qHS Dextrose 50% IV Push, 12.5 gram(s)= 25 mL, IV Push, AsDirected, PRN DuoNeb, 3 mL, Inhalation, q4hRT, PRN Heparin for IV 25,000 unit(s) [9.05 unit(s)/kg/hr] + Dextrose 5% Premix Diluent 250 mL Heparin HBW CARDIAC Bolus 5000 units/mL, 4000 unit(s)= 0.8 mL, 60 unit(s)/kg, IV Push, q6h, PRN HumaLOG 100 units/mL subcutaneous solution, Give 0-15 units/dose, Subcutaneous, TIDAC ipratropium 42 mcg/inh (0.06%) nasal spray, 84 mcg= 2 spray(s), Intranasal, TID Lantus, 8 unit(s)= 0.08 mL, Subcutaneous (INT), qHS Lasix, 40 mg= 4 mL, IV Push, BID levothyroxine, 150 mcg= 1 tab(s), Oral, qDayAC lidocaine (lidocaine Patch REMOVAL), 1 EA, Miscellaneous, q24h lidocaine 4% topical patch, 1 patch(es), Transdermal, q24h magnesium sulfate for IV bolus, 2 gram(s)= 50 mL, IV Piggyback, AsDirected, PRN magnesium sulfate for IV bolus, 4 gram(s)= 100 mL, IV Piggyback, AsDirected, PRN magnesium sulfate for IV bolus Plavix, 75 mg= 1 tab(s), Oral, qDay potassium chloride, 20 mEq= 1 tab(s), Oral, AsDirected, PRN potassium chloride, 40 mEq= 2 tab(s), Oral, AsDirected, PRN potassium chloride, 40 mEq= 2 tab(s), Oral, AsDirected, PRN potassium chloride bolus, 20 mEq= 100 mL, IV Piggyback, AsDirected, PRN Robaxin, 1000 mg= 2 tab(s), Oral, TID, PRN Home ferrous sulfate 325 mg (65 mg elemental iron) oral delayed release tablet, 325 mg= 1 tab(s), Oral, qDay ipratropium 42 mcg/inh (0.06%) nasal spray, 84 mcg= 2 spray(s) Lantus 100 units/mL10 ml vial solution, 10 unit(s)= 0.1 mL, Subcutaneous, qAM levothyroxine 150 mcg (0.15 mg) oral tablet, 150 mcg= 1 tab(s), Oral, qDayAC Lyumjev KwikPen 200 units/mL subcutaneous solution, 12 unit(s) MetFORMIN (Eqv-Glucophage XR) 500 mg oral tablet, EXTENDED RELEASE pravastatin 40 mg oral tablet, 40 mg= 1 tab(s), Oral, qHS traMADol 25 mg oral tablet, 50 mg= 2 tab(s), Oral, q6h, PRN venlafaxine 225 mg oral tablet, extended release Vitamin D3, 100 mcg= 1 tab(s), Oral, Daily Xarelto 10 mg oral tablet, 10 mg= 1 tab(s), Oral, qDay Allergies Shellfish Hives Social History Alcohol Use: Past. Type: Beer. Started at age: 38 Years., 06/27/2024 Home/Environment Living situation: Home/Independent. Safe place to go: Yes. Financial concerns: No., 06/27/2024 Nutrition/Health Type of diet: Diabetic. Caffeine intake amount: soda 12oz BID, coffee 1cup/day., 06/27/2024 Sexual Sexually active: No. Self described orientation: Straight or heterosexual. Gender Identity: Identifies as male., 06/27/2024 Substance Abuse Use: Never., 06/27/2024 Tobacco Nicotine Use: 10 or more cigarettes (1/2 pack or more)/day in last 30 days, Former smoker, quit more than 30 days ago. Type: Cigarettes., 06/27/2024 Family History Cancer: Mother. Heart attack: Brother. Heart disease: Brother. Health Status Family Member(s) Immunizations SARS-CoV-2 mRNA (tozinameran) vaccine: 0.3 unknown unit (01/27/21) SARS-CoV-2 mRNA (tozinameran) vaccine: 0.3 unknown unit (01/06/21) tetanus/diphth/pertuss (Tdap) adult/adol: 0.5 unknown unit (01/11/20) Digitally Signed by PITER BRUSH MD on 06/27/2024 06:10 PM [facility] [id number] Evaluation + Plan noteExtracted from: Title:History and Physical Author:BENNETT EDWARDS DO Date:06/27/24 Unresponsive Episode: Syncop e versus out of hospital Cardiac Arrest Wide Complex Tacycardia - concerning for VTach PVCs CAD s/p PCI to RCA Acute on Chronic HFpEF AFIB - current in afib B/l blindness Hypothyroidism 74M with hx of afib, HFpEF, DM, hyperlipidemia, 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 performed CPR. EMS arrived, delivered 1 shock with ROSC. Reported rhythm was PEA on documentation. Initial labs show stable Cr 1.01, K 3.9, 1.9. Troponin 400's Documentation states is doubting this was cardiac arrest. Patient noted to have telemetry strips showing wide complex tachycardia concerning for VTach. Cardiology Dr. Chavez consulted, concerned for Vtach. Echo showed preserved EF 60%. Patient underwent [facility] s/p PCI/KESHIA to RCA on 06/25/24. Documentation on 06/27/24 morning states that code blue was called for sustained Vtach with a pulse. Initial episode self resolved, 2nd and 3rd episodes patient was defibrillated. Started on IV amiodarone. Currently patient reports his body is sore, especially his chest and ribs from CPR/defibrillation. CXR here shows pulmonary edema. Impression / Plan: Patient has concerning wide complex tachyarrhythmia suspected to be VTach causing syncope versus cardiac arrest. Current rhythm is afib with frequent PVCs On IV amiodarone @1 Heparin drip for afib Aspirin, plavix for recent PCI/KESHIA Stat labs ordered Volume overloaded on exam and imaging: IV lasix 40 bid Telemetry monitoring EP consult for ICD consideration Addendum by SEDRICK ALEXANDER MD on June 28, 2024 00:22:35 EST I have personally seen, examined, and evaluated the patient on the encounter date. I have reviewed the fellow s documentation and agree with the fellow s findings and plan as documented, unless otherwise stated. Future Appointments Appointment Date:07/16/2024 09:45:00 AM Scheduled Provider: Location:[facility] Appointment Type:CV Incision Check Appointment Date:09/29/2024 01:45:00 PM Scheduled Provider: Location:[facility] Appointment Type:CV Office Procedure ICD Appointment Date:12/30/2024 06:45:00 PM Scheduled Provider: Location:[facility] Appointment Type:CV Remote Procedure [facility] 01-25-2025 History and physical note Date of Service 06/27/2024 12:48:49 History of Present Illness 74M with hx of afib, HFpEF, DM, hyperlipidemia, 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 performed CPR. EMS arrived, delivered 1 shock with ROSC. Reported rhythm was PEA on documentation. Initial labs show stable Cr 1.01, K 3.9, 1.9. Troponin 400's Documentation states is doubting this was cardiac arrest. Patient noted to have telemetry strips showing wide complex tachycardia concerning for VTach. Cardiology Dr. Chavez consulted, concerned for Vtach. Echo showed preserved EF 60%. Patient underwent [facility] s/p PCI/KESHIA to RCA on 06/25/24. Documentation on 06/27/24 morning states that code blue was called for sustained Vtach with a pulse.Initial episode self resolved, 2nd and 3rd episodes patient was defibrillated. Started on IV amiodarone. Currently patient reports his body is sore, especially his chest and ribs from CPR/defibrillation. Review of Systems Per HPI, Complete ROS otherwise negative Physical Exam Vitals and Measurements T: 36.7 C (Oral) HR: 59 (Monitored) BP: 132/70 No qualifying data available. General: alert HEENT: blind b/l Neck: Trachea midline, + JVD appreciated CVS: RRR, normal S1/S2, no murmurs/rubs/gallops Lung: CTAB, no wheezes/rhonchi/rales Abd: Soft, NT/ND Extrem: WWP, no LE edema Skin: Warm, Intact Neuro: alert, spontaneous movement of all extremities Psych: Appropriate mood & affect Lab Results No 36 Hour Lab Data Assessment/Plan Unresponsive Episode: Syncope versus out of hospital Cardiac Arrest Wide Complex Tacycardia - concerning for VTach PVCs CAD s/p PCI to RCA Acute on Chronic HFpEF AFIB - current in afib B/l blindness Hypothyroidism 74M with hx of afib, HFpEF, DM, hyperlipidemia, 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 performed CPR. EMS arrived, delivered 1 shock with ROSC. Reported rhythm was PEA on documentation. Initial labs show stable Cr 1.01, K 3.9, 1.9. Troponin 400's Documentation states is doubting this was cardiac arrest. Patient noted to have telemetry strips showing wide complex tachycardia concerning for VTach. Cardiology Dr. Chavez consulted, concerned for Vtach. Echo showed preserved EF 60%. Patient underwent [facility] s/p PCI/KESHIA to RCA on 06/25/24. Documentation on 06/27/24 morning states that code blue was called for sustained Vtach with a pulse.Initial episode self resolved, 2nd and 3rd episodes patient was defibrillated. Started on IV amiodarone. Currently patient reports his body is sore, especially his chest and ribs from CPR/defibrillation. CXR here shows pulmonary edema. Impression / Plan: Patient has concerning wide complex tachyarrhythmia suspected to be VTach causing syncope versus cardiac arrest. Current rhythm is afib with frequent PVCs On IV amiodarone @1 Heparin drip for afib Aspirin, plavix for recent PCI/KESHIA Stat labs ordered Volume overloaded on exam and imaging: IV lasix 40 bid Telemetry monitoring EP consult for ICD consideration Procedure/Surgical History Coronary angioplasty: 06/24/24 Hernia repair Medications Home Medications (8) Active ipratropium 42 mcg/inh (0.06%) nasal spray 84 mcg = 2 spray(s) Lantus 100 units/mL10 ml vial solution 10 unit(s) = 0.1 mL, Subcutaneous, qAM levothyroxine 150 mcg (0.15 mg) oral tablet 150 mcg = 1 tab(s), Oral, qDayAC Lyumjev KwikPen 200 units/mL subcutaneous solution 12 unit(s) MetFORMIN (Eqv-Glucophage XR) 500 mg oral tablet, EXTENDED RELEASE pravastatin 40 mg oral tablet 40 mg = 1 tab(s), Oral, qHS venlafaxine 225 mg oral tablet, extended release Xarelto 10 mg oral tablet 10 mg = 1 tab(s), Oral, qDay Allergies No active allergies Family History Cancer: Mother. Heart attack: Brother. Heart disease: Brother. Health Status Family Member(s) Immunizations No qualifying data available. Code Status Code Status - Ordered -- 06/27/24 12:09:00 EST, Full Code, Constant Order Digitally Signed by CHANEL EDWARDS DO on 06/27/2024 03:45 PM Digitally Signed by CHANEL EDWARDS DO on 06/27/2024 03:47 PM [id number]* Exam Date Time Procedure Performing Provider Status 06/27/24 12:47 PM XR Chest 1 View CHAIM WORKMAN DO; [facility] (Verified) [id number] ORIGINAL EXAMINATION: ONE XRAY VIEW OF THE CHEST 06/27/2024 12:47 pm COMPARISON: None. HISTORY: ORDERING SYSTEM PROVIDED HISTORY: Reason for Exam: sob FINDINGS: Pulmonary vascular cephalization observed. There is veiling of the lower lobe vessels, cardiomegaly and elevation of the left hemidiaphragm. There are small bilateral pleural effusions. Skeletal elements remain intact. IMPRESSION: Mild pulmonary edema and small bilateral pleural effusions. Interpreted by: Chaim Workman DO Preliminary Report By: Chaim Workman DO Electronically signed By Chaim Workman DO Dictated Date: 06/27/2024 1:04:11 PM Prelim Date: 06/27/2024 1:04:58 PM Sign Date: 06/27/2024 1:04:58 PM Ordering Provider: HCANEL EDWARDS [facility] [id number] Note* Exam Date Time Procedure Performing Provider Status 06/27/24 12:25 PM Electrocardiogram - EKG - CV CAMILO ALEXANDER MD; Auth (Verified) ECG Final Report ATRIAL FIBRILLATION RIGHT BUNDLE BRANCH BLOCK Electronic Signature: SEDRICK ALEXANDER MD 06/28/2024 16:43:43 [facility] [id number] [facility]01-25-2025 Note* Exam Date Time Procedure Performing Provider Status 06/27/24 12:12 PM Electrocardiogram - EKG - CV CAMILO ALEXANDER MD; Auth (Verified) ECG Final Report ATRIAL FIBRILLATION Ventricular premature complex RIGHT BUNDLE BRANCH BLOCK Electronic Signature: SEDRICK ALEXANDER MD 06/28/2024 16:43:33 [facility] [id number] Evaluation note* Diagnosis Onset Date Resolution Status Admit Date Ventricular tachycardia acute J anuary 2024 11:02am Acute hypoxic respiratory failure resolved June 24 11:02am Aspiration pneumonia resolved 2024 11:02am Cardiac arrest resolved June 242024 11:02am Elevated troponin resolved June 24, 2024 11:02am Hypotension resolved June 24, 2024 11:02am Longstanding persistent atrial fibrillation resolved June 11:02am NSTEMI, initial episode of care resolved June 24 11:02am Sepsis resolved June 24, 2024 11:02am Syncope resolved June 24, 2024 11:02am Anemia inactive June 24, 2024 11:02am Bronchiectasis chronic August 03, 2024 8:15am Chronic diastolic (congestive) heart failure chronic August 03, 2024 8:15am COPD (chronic obstructive pulmonary disease) chronic August 03 8:15am Atrial fibrillation acute September 01, 2024 7:52am History of coronary artery stent placement June 25, 2024 acute September 01 7:52am Single implantable cardioverter-defibrillator (ICD) in situ acute September 01, 2024 7:52am Ventricular tachycardia acute A pril 2024 7:52am Essential (primary) hypertension chronic September 01, 2024 7:52am Hyperlipidemia chronic September 01, 2024 7:52am Chest pain acute September 01 9:02pm Pneumonia acute September 01 9:02pm DM type 2 (diabetes mellitus, type 2) chronic September 01 9:02pm [facility] Work Phone: 1(612) 598-754101-22-2025 Evaluation note* Diagnosis Onset Date Resolution Status Admit Date Ventricular tachycardia acute J anuary 2024 11:02am Acute hypoxic respiratory failure resolved June 24 11:02am Aspiration pneumonia resolved 2024 11:02am Cardiac arrest resolved June 242024 11:02am Elevated troponin resolved June 24, 2024 11:02am Hypotension resolved June 24, 2024 11:02am Longstanding persistent atrial fibrillation resolved June 11:02am NSTEMI, initial episode of care resolved June 24 11:02am Sepsis resolved June 24, 2024 11:02am Syncope resolved June 24, 2024 11:02am Anemia inactive June 24, 2024 11:02am Bronchiectasis chronic August 03, 2024 8:15am Chronic diastolic (congestive) heart failure chronic August 03, 2024 8:15am COPD (chronic obstructive pulmonary disease) chronic August 03 8:15am Atrial fibrillation acute September 01, 2024 7:52am History of coronary artery stent placement June 25, 2024 acute September 01 7:52am Single implantable cardioverter-defibrillator (ICD) in situ acute September 01, 2024 7:52am Ventricular tachycardia acute A pril 2024 7:52am Essential (primary) hypertension chronic September 01, 2024 7:52am Hyperlipidemia chronic September 01, 2024 7:52am DM type 2 (diabetes mellitus, type 2) chronic September 01 9:02pm Chest pain resolved September 01 9:02pm Pneumonia resolved September 01 9:02pm [facility] Work Phone: 1(260) 665-553804-18-2024 Progress note Author Alejandro Talbot [facility] September 19, 2023 10:40am Note Date/Time September 19, 2023 10: 25am [facility] [address] [place] [id number] Progress Note - Wound Care 09/19/23 1020 MR#: [id number] Acct: [id number] Name: ARMIN TURCIOS Rep #:[id number] : 1950 73 From: Alejandro bar DPM PCP: Dr. Jessi Olguin MD Status:REG RCR Location: ADDENDUM by MEGAN Talbot on 09/19/23 at 1040 Addendum This is a correction to the previous above statement of no debridement. Debridement was performed today, 09/19/2023 to the Left lateral lower extremity ulceration. Ulceration was locally anesthetized with 5% topical lidocaine gel. Ulceration is a Miguel stage I and was debrided via sharp excisional debridementto the level of the subcutaneous tissue utilizing a #3 curette. 100% of the ulceration was debrided. Debridement consisted of removal of fibrous, devitalized subcutaneous, biofilm, slough. Hemostasis was achieved through pressure and gauze. Patient tolerated procedure well. 09/19/23 1040<Electronically signed by Alejandro Talbot DPM> Cosigner Signature (if applicable): cc: ~* Signed History of Present Illness Date of Service: 09/19/23 Chief Complaint: Left Leg Ulcer History of Wound: Mr. Turcios is a 72-year-old with PMHx of of diabetes mellitus type 2, venous insufficiency bilateral lower extremity, history of multiple ulcerations, HTN, HLD, COPD, A-fib, CHF. He presents back to the woundcare center today accompanied by his for nonhealing left lower extremity ulceration. states he has either bumped his leg on something or picked at some skin on the front of his leg creating a new wound. They state they have been following with Dr. Anderson in [place] as well as PCP Dr. Olguin. They stateoccasional use of mupirocin topical ointment but otherwise have not been applying dressings to the site. They state the wound has been present for a fewweeks and has not made much progress and thus they were referred to the wound care center for continued wound healing. He denies N/V/F/chills. He has no further complaints. Subjective Subjective Patient is a 73-year-old male who follows up to the wound care center today for a left lower extremity ulceration. He is accompanied by esxworjq-na-zwc today. Fkrxznyy-cx-bwb is aiding in daily dressing changes. He does not keep feet elevated as much as he should according to previous statements by and oqrxbacs-zr-[id number]. Ygstgdhz-vi-gfv states she is seeing improvement in the wound. He denies constitutional symptoms today. Denies further complaints today. Objective Data Objective Data Vital Signs: Vital Signs Temp Pulse Resp BP O2 Del Method 98.7 F 94 18 125/86 H Room Air 09/19/23 08:00 09/19/23 08:00 09/19/23 08:00 09/19/23 08:00 09/05/23 08:12 Oxygen Delivery Method Room Air Weight: 114.015 kg Body Mass Index (BMI) 31.4 Physical Exam Const alert, oriented x3 and no apparent distress General Appearance: cooperative HEENT normocephalic Eyes General Eye: normal appearance of both eyes Neck General: normal visual inspection Lymph Lymphatic: no lymphadenopathy noted and no lymphedema noted Resp normal respiratory effort Cardio regular rate and regular rhythm Extremity normal capillary refill, no joint enlargement, no calf tenderness and no pedal edema Extremity Narrative: DP pulses palpable and PT pulses weakly palpable bilateral. CFT less than 3 seconds to the digits bilateral. Hair growth absent to digits of foot bilateral. Dermatological: Skin is thin and demonstrating trophic changes bilateral lower extremity. Skin is excessively dry with peeling/flaking consistent with diabetic autonomic neuropathy and microvascular disease. Ulceration to the anterior aspect overlying the tibial crest remains healed, no signs of infection. Ulceration noted to the lateral ankle with mixed fibrogranular layer. No signs of infection. Musculoskeletal: Muscle strength 5 of 5 age-appropriate. Decreased ankle range of motion in dorsiflexion with the knee extended without pain or crepitus bilateral. Decreased range of motion of the first metatarsophalangeal joint without pain or crepitus bilateral. There is hammertoe deformity of lesser digits bilateral without pain to palpation. Skin no rashes or lesions noted, skin turgor normal and no jaundice Neuro moves all extremities Debridement Note Debridement Note No debridement was completed: No debridement was completed today Post-Debridement Measurements and Additional Note: Post-Debridement Measurements/Treatment - Nurse 1 - General Ulcer Assessment Start: 09/05/23 08:12 Freq: Status: Active Protocol: BRYANNA.LOWEXT Activity Type Activity Date Activity User E-sign Co-sign Detail Recorded Client Recorded Date Recorded By Document 09/05/23 08:12 OK Desktop 09/05/23 08:23 OK Document 09/10/23 11:41 RB [id number] 09/10/23 11:44 RB Document 09/19/23 08:00 DL Desktop 09/19/23 08:09 DL 09/05/23 09/10/23 09/19/23 08:12 11:41 08:00 - Today's Visit Information Type of service Follow-up Visit Follow-up Visit Follow-up Visit (Physician/DOG TRAINER (Physician/DOG TRAINER (Physician/DOG TRAINER ) ) ) Arrival Mode Ambulatory Ambulatory,Cane Ambulatory Transfer Assistance Manual,None None Accompanied by daughter in law Patient Identification Verified (Name & Yes Yes Yes ) Patient Requires Transmission-Based No Precautions Safety Precautions Fall Prevention Finger Stick Blood Sugar(mg/dl) (if 137 indicated): Blood Sugar Stated by Patient Height and Weight Body Mass Index (BMI) 31.4 31.4 31.4 BMI Classification Obese Obese Obese Vital Signs Temperature (97.8 F-99.1 F) 97.0 F L 96.4 F L 98.7 F Temperature Source Temporal Temporal Temporal Pulse Rate (60-100) 94 88 94 Pulse Location Monitor Monitor Monitor Respiratory Rate (12-18) 16 18 18 Respiratory rate source Observation Observation Observation Oxygen Delivery Method Room Air Blood Pressure (90/60-120/80) 113/62 141/87 H 125/86 H Blood Pressure Mean (mm Hg) 79 105 99 Source Monitor Monitor Monitor Position Sitting Semi-Fowlers Blood Pressure Location Right Arm Left Arm History Since Last Visit- (Skip if this is Patient's initial visit) Have you changed medications since your No No last visit? Any new allergies or adverse reactions No No Had a fall/change in ADL's that may No No increase risk of falls Signs or symptoms of abuse and/or No No neglect since last visit Have you been in the hospital since your No No last visit? Has dressing in place as prescribed Yes Yes Has compression in place as prescribed Yes Yes Has offloadiing in place as prescribed No N/A Experienced any changes in pain level or No No management Pain Scale: 0-10 Numeric Is Patient Pain Free? Yes Yes Yes WC - Nurse 1 - General Ulcer Measurement Start: 09/05/23 08:12 Freq: Status: Active Protocol: Activity Type Activity Date Activity User E-sign Co-sign Detail Recorded Client Recorded Date Recorded By Document 09/05/23 08:12 MT Desktop 09/05/23 08:23 MT Document 09/10/23 11:41 RB [id number] 09/10/23 11:44 RB Document 09/19/23 08:00 DL Desktop 09/19/23 08:09 DL 09/05/23 09/10/23 09/19/23 08:12 11:41 08:00 Wound Center Nurse 1 #9 LT ANKLE -Current Size (cm) - Length 1 0.7 -Current Size (cm) - Width 0.8 0.5 -Current Size (cm) - Depth 0.2 0.2 -Total Square Cm 0.8 0.35 -Exudate Amt Medium Small -Exudate Type Serosanguineous Serosanguineous -Wound Margin Distinct, Thickened Outline Attached -Granulation Amt Medium (34-66%) Small (1-33%) -Granulation Quality [place] -Slough/Fibrin Yes -Necrosis Amt Medium (34-66%) Large (67-100%) -Necrotic Tissue Type Adherent Slough Adherent Slough -Structure Exposed N/A N/A -Texture (Jada-wound Skin Appearance) Assessed, Scarring Scarring -Moisture (Jada-wound Skin Appearance) Assessed Dry/Scaly -Color (Jada-wound Skin Appearance) Assessed Hemosiderin Staining -Temperature (Jada-wound Skin No Abnormality No Abnormality Appearance) (Pt Warm) (Pt Warm) -Tenderness on Palpation (Jada-wound No Skin Appearance) -Ulcer Cleansing Wound Cleanser Soap and Water -Foul Odor after Cleansing No No -Anesthetic Used 5% Lidocaine Gel Lower Limb Edema Present Yes Left Calf (cm) 37.5 35.5 Left Ankle (cm) 22 21.4 WC - Nurse 2 - General Ulcer CM Notes Start: 09/05/23 08:12 Freq: Status: Active Protocol: Activity Type Activity Date Activity User E-sign Co-sign Detail Recorded Client Recorded Date Recorded By Document 09/05/23 08:46 [facility] Desktop 09/05/23 08:51 [facility] Document 09/19/23 08:42 [facility] Desktop 09/19/23 08:48 [facility] 09/05/23 09/19/23 08:46 08:42 Wound Center Nurse 2 #9 LT ANKLE -Time 08:47 08:42 -Correct Patient Yes Yes -Correct Side, Site, Position Yes Yes -Correct Procedure Yes Yes -Procedure Performed Yes Yes -Type of Procedure Debridement Debridement -Clinical Debridement Subcutaneous Subcutaneous -Tissue Removed Subcutaneous Subcutaneous -Post Debridement (cm) - Length 0.6 0.7 -Post Debridement (cm) - Width 0.4 0.4 -Post Debridement (cm) - Depth 0.1 0.1 -Total Square (Post) (cm) 0.24 0.28 -Area of Debridement (cm) - Length 0.6 0.7 -Area of Debridement (cm) - Width 0.4 0.4 -Total Square (Area) (cm) 0.24 0.28 -Tunneling No No -Undermining/Tunneling No No -Circular Undermining No No -Wound/Ulcer Outcome Not Healed Not Healed -Ulcer Cleansing Rinsed/ Rinsed/ Irrigated with Irrigated with Saline Saline -Foul Odor after Cleansing No No -Bioengineered Tissue No No -Bleeding Controlled with Pressure Pressure -Treatment Response Procedure Procedure Tolerated Well Tolerated Well -Offloading No -Debridement - Subq, 1st 20sq cm Yes Yes Pain Scale: 0-10 Numeric Is Patient Pain Free? Yes Yes - Nurse 3 - General Ulcer D/C NN Start: 09/05/23 08:12 Freq: Status: Active Protocol: Activity Type Activity Date Activity User E-sign Co-sign Detail Recorded Client Recorded Date Recorded By Document 09/05/23 09:07 DL Desktop 09/05/23 09:09 DL Document 09/10/23 11:41 RB [id number] 09/10/23 11:44 RB Document 09/19/23 09:02 DL Desktop 09/19/23 09:03 DL 09/05/23 09/10/23 09/19/23 09:07 11:41 09:02 Wound Care Center Nurse 3 #9 LT ANKLE -Ulcer Cleansing Rinsed/ Rinsed/ Irrigated with Irrigated with Saline Saline -Foul Odor after Cleansing No No -Primary Dressing Applied Hysept ($) -Other Dressing dakins dakins dakins moistened gauze -Primary Dressing Covered/Secured with Dry Gauze Dry Gauze Dry Gauze & Roll Gauze, Secured with Tape Left -Multi-Layered Wrap Application Unna Boot - Unna Boot - Left ($) Left ($) -Tubular Bandage Single Layer -Size of Tubigrip Used Size D -Size D ($) 1 Treatment Response Procedure Procedure Procedure Tolerated Well Tolerated Well Tolerated Well Vital Signs Temperature (97.8 F-99.1 F) 96.4 F L Temperature Source Temporal Pulse Rate (60-100) 88 Pulse Location Monitor Respiratory Rate (12-18) 18 Respiratory rate source Observation Blood Pressure (90/60-120/80) 141/87 H Blood Pressure Mean (mm Hg) 105 Source Monitor Position Semi-Fowlers Blood Pressure Location Left Arm Pain Scale: 0-10 Numeric Is Patient Pain Free? Yes Yes Yes - Visit Discharge Discharge Condition Stable Stable Stable Ambulatory Status Ambulatory Ambulatory,Cane Ambulatory, Walker Transportation Private Auto Private Auto Private Auto Accompanied by daughter in law Medication Reconcilliation completed & No provided to patient/care provider Clinical Summary of Care Provided Yes Assessment/Plan Assessment/Plan (1) Non-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: CODE(S): L97.322 - Non-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 layerexposed (2) Delayed wound healing: CODE(S): T14.8XXD - Other injury of unspecified body region, subsequent encounter (3) Venous insufficiency of both lower extremities: CODE(S): I87.2 - Venous insufficiency (chronic) (peripheral) (4) COPD (chronic obstructive pulmonary disease): CODE(S): J44.9 - Chronic obstructive pulmonary disease, unspecified (5) Hyperlipidemia: CODE(S): E78.5 - Hyperlipidemia, unspecified QUALIFIERS: Hyperlipidemia type: unspecified Qualified Code(s): E78.5 - Hyperlipidemia, unspecified (6) Chronic diastolic (congestive) heart failure: CODE(S): I50.32 - Chronic diastolic (congestive) heart failure (7) Longstanding persistent atrial fibrillation: CODE(S): I48.11 - Longstanding persistent atrial fibrillation (8) DM type 2 (diabetes mellitus, type 2): CODE(S): E11.9 - Type 2 diabetes mellitus without complications QUALIFIERS: 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: with 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 use Diabetes mellitus complication status: with other specified complication Qualified Code(s): E11.69 - Type 2 diabetes mellitus with other specified complication; Z79.4 - long-term (current) use of insulin PLAN: Plan Patient seen and evaluated I reviewed his previous treatment history by PCP. Patient had followed Dr. Anderson. Ulceration to the left anterior lower extremity remains healed. No signs of infection. Left lateral ankle measures 0.7 cm x 0.4 cm x 0.1 cm. Wound underwent debridement as noted in clinical panel above. He has finished all 10 applications of EpiFix graft. Dakin's wet-to-dry dressing applied with Unna boot compression over site. He was instructed to not get the lower extremity/dressings wet. Lateral ankle wound demonstrates slight change in size vs previous visit. Overall tissue appears healthy and continues to fill in. Unna boot continued to be applied as ankle motion may be contributing factor of tension on wound. He was instructed to not get dressings wet LEAS ordered due to delayed healing of the anterolateral ankle wound and performed 07/23/2023. LEAS demonstrates triphasic Doppler waveforms at ankle level bilaterally with PVR satisfactory at all levels bilaterally. Resting FERMÍN indices normal bilateral. Digital brachial indices normal bilateral. No evidence of significant arterial occlusive disease of lower extremities. Discussed continued diabetic diet to ensure proper glucose control. Recent A1c 6.4%. Discussed that this is a good standing for control of his diabetes and will aid in wound healing. Discussed with to aid in daily foot checks as her is blind. Discussed wearing shoe gear at all times and to never go barefoot. Socks include barefoot. They voiced understanding of this today. Recommend continued follow-up with PCP for continued diabetic management. Discussed adequate protein intake to continue to aid in wound healing. Also discussed Negrito supplementation to aid in wound healing. Discussed signs and symptoms with the pertaining to infection. Discussed if she notices increasing redness about the wound margin spreading up the leg, any purulent drainage from the wound site, increasing foul odor from the wound, or if he experiences fever greater than 101 degree, nausea, vomiting, chills that these are signs of progressing infection and he needs to report to the ED. They voiced understanding of this today. The following work up and care recommendations were made: Dressing: Dakin's, dry sterile dressing, Unna boot. Leave dressings intact and Do not get wet. Wash: Do not get wet Tissue growth optimization: Dakin's Offload: Ensure anterior leg is not bumped and discussed no picking at skin sites. Vascular: DP and PT pulses palpable with adequate capillary fill time. However skin demonstrates trophic changes consistent with microvascular disease. Edema: No edema currently, has history of chronic venous stasis. Recommend continued compression stocking. Infection: No signs of infection. Pain: May take uuzh-wse-vrjlbxr Tylenol extra strength for discomfort. Host factors: DM type II, chronic venous stasis, CHF, COPD, blindness I answered all the patient's questions. To return to the wound healing center in 2 weeks or call sooner if the patient has any questions or concerns. 09/19/23 1025 <Electronically signed by Alejandro Talbot DPM> Cosigner Signature (if applicable): CC: ~ Signed [facility] Work Phone: 1(714) 400-591604-04-2024 Progress note Author Alejandro Talbot [facility] September 05, 2023 9:11am Note Date/Time September 05, 2023 8:34 am [facility] [address] [place] [address] Progress Note - Wound Care 09/05/23 0829 MR#: [id number] Acct: [id number] Name: ARMIN TURCIOS Rep #:[id number] : 1950 73 From: Alejandro bar DPM PCP: Dr. Jessi Olguin MD Status:REG RCR Location: History of Present Illness Date of Service: 09/05/23 Chief Complaint: Left Leg Ulcer History of Wound: Mr. Turcios is a 72-year-old with PMHx of of diabetes mellitus type 2, venous insufficiency bilateral lower extremity, history of multiple ulcerations, HTN, HLD, COPD, A-fib, CHF. He presents back to the woundcare center today accompanied by his for nonhealing left lower extremity ulceration. states he has either bumped his leg on something or picked at some skin on the front of his leg creating a new wound. They state they have been following with Dr. Anderson in [place] as well as PCP Dr. Olguin. They stateoccasional use of mupirocin topical ointment but otherwise have not been applying dressings to the site. They state the wound has been present for a fewweeks and has not made much progress and thus they were referred to the wound care center for continued wound healing. He denies N/V/F/chills. He has no further complaints. Subjective Subjective Patient is a 73-year-old male who follows up to the wound care center today for a left lower extremity ulceration. He is accompanied by wfotlpqd-ka-jsg today due to and daughter both fracturing their ankles. He has kept graft in place to wound site and has kept dressings clean, dry, intact. He has presentedfor Unna boot dressing changes with nursing. He does not keep feet elevated as much as he should according to previous statements by . He denies constitutional symptoms today. Denies further complaints today. Objective Data Objective Data Vital Signs: Vital Signs Temp Pulse Resp BP O2 Del Method 97.0 F L 94 16 113/62 Room Air 09/05/23 08:12 09/05/23 08:12 09/05/23 08:12 09/05/23 08:12 09/05/23 08:12 Oxygen Delivery Method Room Air Weight: 114.015 kg Body Mass Index (BMI) 31.4 Physical Exam Const alert, oriented x3 and no apparent distress General Appearance: cooperative HEENT normocephalic Eyes General Eye: normal appearance of both eyes Neck General: normal visual inspection Lymph Lymphatic: no lymphadenopathy noted and no lymphedema noted Resp normal respiratory effort Cardio regular rate and regular rhythm Extremity normal capillary refill, no joint enlargement, no calf tenderness and no pedal edema Extremity Narrative: DP pulses palpable and PT pulses weakly palpable bilateral. CFT less than 3 seconds to the digits bilateral. Hair growth absent to digits of foot bilateral. Dermatological: Skin is thin and demonstrating trophic changes bilateral lower extremity. Skin is excessively dry with peeling/flaking consistent with diabetic autonomic neuropathy and microvascular disease. Ulceration to the anterior aspect overlying the tibial crest remains healed, no signs of infection. Ulceration noted to the lateral ankle with mixed fibrogranular layer. No signs of infection. Musculoskeletal: Muscle strength 5 of 5 age-appropriate. Decreased ankle range of motion in dorsiflexion with the knee extended without pain or crepitus bilateral. Decreased range of motion of the first metatarsophalangeal joint without pain or crepitus bilateral. There is hammertoe deformity of lesser digits bilateral without pain to palpation. Skin no rashes or lesions noted, skin turgor normal and no jaundice Neuro moves all extremities Debridement Note Debridement Note Wound debrided: Left lateral ankle Laterality: Left Wound Grade/Stage: Miguel stage I Type of Debridement: Excisional debridement Anesthesia Used: 5% Lidocaine Gel Depth: Down to and including healthy tissue and in the subcutaneous layer Percentage of wound debrided: 100 Instrument Used: 5mm curette Tissue Removed: Fibrous, devitalized subcutaneous, biofilm, slough Severity: Fat Layer Exposed Amount of bleeding with debridement: Mild Bleeding Controlled with: Compression and gauze Patient tolerated procedure: Patient tolerated procedure well Post-Debridement Measurements and Additional Note: Post-Debridement Measurements/Treatment BRYANNA - Nurse 1 - General Ulcer Assessment Start: 09/05/23 08:12 Freq: Status: Active Protocol: OLIVIA Activity Type Activity Date Activity User E-sign Co-sign Detail Recorded Client Recorded Date Recorded By Document 09/05/23 08:12 OK Desktop 09/05/23 08:23 OK 09/05/23 08:12 - Today's Visit Information Type of service Follow-up Visit (Physician/DOG TRAINER ) Arrival Mode Ambulatory Accompanied by daughter in law Patient Identification Verified (Name & Yes ) Safety Precautions Fall Prevention Height and Weight Body Mass Index (BMI) 31.4 BMI Classification Obese Vital Signs Temperature (97.8 F-99.1 F) 97.0 F L Temperature Source Temporal Pulse Rate (60-100) 94 Pulse Location Monitor Respiratory Rate (12-18) 16 Respiratory rate source Observation Oxygen Delivery Method Room Air Blood Pressure (90/60-120/80) 113/62 Blood Pressure Mean (mm Hg) 79 Source Monitor Position Sitting Blood Pressure Location Right Arm Pain Scale: 0-10 Numeric Is Patient Pain Free? Yes - Nurse 1 - General Ulcer Measurement Start: 09/05/23 08:12 Freq: Status: Active Protocol: Activity Type Activity Date Activity User E-sign Co-sign Detail Recorded Client Recorded Date Recorded By Document 09/05/23 08:12 OK Desktop 09/05/23 08:23 OK 09/05/23 08:12 Wound Center Nurse 1 #9 LT ANKLE -Current Size (cm) - Length 1 -Current Size (cm) - Width 0.8 -Current Size (cm) - Depth 0.2 -Total Square Cm 0.8 Assessment/Plan Assessment/Plan (1) Non-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: CODE(S): L97.322 - Non-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 layerexposed (2) Delayed wound healing: CODE(S): T14.8XXD - Other injury of unspecified body region, subsequent encounter (3) Venous insufficiency of both lower extremities: CODE(S): I87.2 - Venous insufficiency (chronic) (peripheral) (4) COPD (chronic obstructive pulmonary disease): CODE(S): J44.9 - Chronic obstructive pulmonary disease, unspecified (5) Hyperlipidemia: CODE(S): E78.5 - Hyperlipidemia, unspecified QUALIFIERS: Hyperlipidemia type: unspecified Qualified Code(s): E78.5 - Hyperlipidemia, unspecified (6) Chronic diastolic (congestive) heart failure: CODE(S): I50.32 - Chronic diastolic (congestive) heart failure (7) Longstanding persistent atrial fibrillation: CODE(S): I48.11 - Longstanding persistent atrial fibrillation (8) DM type 2 (diabetes mellitus, type 2): CODE(S): E11.9 - Type 2 diabetes mellitus without complications QUALIFIERS: Diabetes mellitus complication status: with other specified complication Diabetes mellitus longterm insulin use: with 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 use Qualified Code(s): E11.69 - Type 2 diabetes mellitus with other specified complication; Z79.4 - long-term (current) use of insulin PLAN: Plan Patient seen and evaluated I reviewed his previous treatment history by PCP. Patient had followed Dr. Anderson. Ulceration to the left anterior lower extremity remains healed. No signs of infection. Left lateral ankle measures 0.6 cm x 0.4 cm x 0.1 cm. Wound underwent debridement as noted in clinical panel above. He has finished all 10 applications of EpiFix graft. Dakin's wet-to-dry dressing applied with Unna boot compression over site. He was instructed to not get the lower extremity/dressings wet. Lateral ankle wound demonstrates good reduction in size vs previous visit. Unna boot continued to be applied as ankle motion may be contributing factor of tension on wound. He was instructed to not get dressings wet LEAS ordered due to delayed healing of the anterolateral ankle wound and performed 07/23/2023. LEAS demonstrates triphasic Doppler waveforms at ankle level bilaterally with PVR satisfactory at all levels bilaterally. Resting FERMÍN indices normal bilateral. Digital brachial indices normal bilateral. No evidence of significant arterial occlusive disease of lower extremities. Discussed continued diabetic diet to ensure proper glucose control. Recent A1c 6.4%. Discussed that this is a good standing for control of his diabetes and will aid in wound healing. Discussed with to aid in daily foot checks as her is blind. Discussed wearing shoe gear at all times and to never go barefoot. Socks include barefoot. They voiced understanding of this today. Recommend continued follow-up with PCP for continued diabetic management. Discussed adequate protein intake to continue to aid in wound healing. Also discussed Negrito supplementation to aid in wound healing. Discussed signs and symptoms with the pertaining to infection. Discussed if she notices increasing redness about the wound margin spreading up the leg, any purulent drainage from the wound site, increasing foul odor from the wound, or if he experiences fever greater than 101 degree, nausea, vomiting, chills that these are signs of progressing infection and he needs to report to the ED. They voiced understanding of this today. The following work up and care recommendations were made: Dressing: Dakin's, dry sterile dressing, Unna boot. Leave dressings intact and Do not get wet. Wash: Do not get wet Tissue growth optimization: Dakin's Offload: Ensure anterior leg is not bumped and discussed no picking at skin sites. Vascular: DP and PT pulses palpable with adequate capillary fill time. However skin demonstrates trophic changes consistent with microvascular disease. Edema: No edema currently, has history of chronic venous stasis. Recommend continued compression stocking. Infection: No signs of infection. Pain: May take [id number] Tylenol extra strength for discomfort. Host factors: DM type II, chronic venous stasis, CHF, COPD, blindness I answered all the patient's questions. To return to the wound healing center in 2 weeks or call sooner if the patient has any questions or concerns. 09/05/23 0911 <Electronically signed by Alejandro Talbot DPM> Cosigner Signature (if applicable): CC: ~ Signed [facility] [place] Work Phone: [phone] 280-967303-21-2024 Progress note Author Alejandro Talbot [facility] [place] August 22, 2023 12:36pm Note Date/Time August 22, 2023 8:2 4am [facility] [address] [place] [address] Progress Note - Wound Care 08/22/23 0823 MR#: [id number] Acct: [id number] Name: ARMIN TURCIOS Rep #:[id number] : 1950 73 From: Alejandro bra DPM PCP: Dr. Jessi Olguin MD Status:REG RCR Location: History of Present Illness Date of Service: 08/22/23 Chief Complaint: Left Leg Ulcer History of Wound: Mr. Turcios is a 72-year-old with PMHx of of diabetes mellitus type 2, venous insufficiency bilateral lower extremity, history of multiple ulcerations, HTN, HLD, COPD, A-fib, CHF. He presents back to the woundcare center today accompanied by his for nonhealing left lower extremity ulceration. states he has either bumped his leg on something or picked at some skin on the front of his leg creating a new wound. They state they have been following with Dr. Anderson in [place] as well as PCP Dr. Olguin. They stateoccasional use of mupirocin topical ointment but otherwise have not been applying dressings to the site. They state the wound has been present for a fewweeks and has not made much progress and thus they were referred to the wound care center for continued wound healing. He denies N/V/F/chills. He has no further complaints. Subjective Subjective Patient is a 73-year-old male who follows up to the wound care center today for a left lower extremity ulceration. He is accompanied by friend of family today due to and daughter both fracturing their ankles. He has kept graft in place to wound site and has kept dressings clean, dry, intact. He does not keepfeet elevated as much as he should according to statements by . He denies constitutional symptoms today. Denies further complaints today. Objective Data Objective Data Vital Signs: Vital Signs Temp Pulse Resp BP O2 Del Method 97.4 F L 73 18 130/71 H Room Air 08/22/23 08:07 08/22/23 08:07 08/22/23 08:07 08/22/23 08:07 08/22/23 08:07 Oxygen Delivery Method Room Air Weight: 114.015 kg Body Mass Index (BMI) 31.4 Physical Exam Const alert, oriented x3 and no apparent distress General Appearance: cooperative HEENT normocephalic Eyes General Eye: normal appearance of both eyes Neck General: normal visual inspection Lymph Lymphatic: no lymphadenopathy noted and no lymphedema noted Resp normal respiratory effort Cardio regular rate and regular rhythm Extremity normal capillary refill, no joint enlargement, no calf tenderness and no pedal edema Extremity Narrative: DP pulses palpable and PT pulses weakly palpable bilateral. CFT less than 3 seconds to the digits bilateral. Hair growth absent to digits of foot bilateral. Dermatological: Skin is thin and demonstrating trophic changes bilateral lower extremity. Skin is excessively dry with peeling/flaking consistent with diabetic autonomic neuropathy and microvascular disease. Ulceration to the anterior aspect overlying the tibial crest remains healed, no signs of infection. Ulceration noted to the lateral ankle with mixed fibrogranular layer. No signs of infection. Musculoskeletal: Muscle strength 5 of 5 age-appropriate. Decreased ankle range of motion in dorsiflexion with the knee extended without pain or crepitus bilateral. Decreased range of motion of the first metatarsophalangeal joint without pain or crepitus bilateral. There is hammertoe deformity of lesser digits bilateral without pain to palpation. Skin no rashes or lesions noted, skin turgor normal and no jaundice Neuro moves all extremities Debridement Note Debridement Note Wound debrided: Left lateral ankle Laterality: Left Wound Grade/Stage: Miguel stage I Type of Debridement: Excisional debridement Anesthesia Used: 5% Lidocaine Gel Depth: Down to and including healthy tissue and in the subcutaneous layer Percentage of wound debrided: 100 Instrument Used: 5mm curette Tissue Removed: Fibrous, devitalized subcutaneous, biofilm, slough Severity: Fat Layer Exposed Amount of bleeding with debridement: Mild Bleeding Controlled with: Compression and gauze Patient tolerated procedure: Patient tolerated procedure well Post-Debridement Measurements and Additional Note: Post-Debridement Measurements/Treatment - Nurse 1 - General Ulcer Assessment Start: 08/08/23 08:05 Freq: Status: Active Protocol: OLIVIA Activity Type Activity Date Activity User E-sign Co-sign Detail Recorded Client Recorded Date Recorded By Document 08/08/23 08:05 DL Desktop 08/08/23 08:15 DL Document 08/22/23 08:07 GM Desktop 08/22/23 08:18 GM 08/08/23 08/22/23 08:05 08:07 - Today's Visit Information Type of service Follow-up Visit Follow-up Visit (Physician/DOG TRAINER (Physician/DOG TRAINER ) ) Arrival Mode Ambulatory,Cane Ambulatory Transfer Assistance None Transfer Assist (Other) granddaughter Accompanied by daughter in law Patient Identification Verified (Name & Yes Yes ) Patient Requires Transmission-Based No Precautions Height and Weight Body Mass Index (BMI) 31.4 31.4 BMI Classification Obese Obese Vital Signs Temperature (97.8 F-99.1 F) 96.5 F L 97.4 F L Temperature Source Temporal Temporal Pulse Rate (60-100) 93 73 Pulse Location Monitor Monitor Respiratory Rate (12-18) 18 18 Respiratory rate source Observation Observation Oxygen Delivery Method Room Air Room Air Blood Pressure (90/60-120/80) 131/96 H 130/71 H Blood Pressure Mean (mm Hg) 107 90 Source Monitor Monitor Position Semi-Fowlers Sitting Blood Pressure Location Left Forearm Left Arm History Since Last Visit- (Skip if this is Patient's initial visit) Have you changed medications since your No No last visit? Any new allergies or adverse reactions No No Had a fall/change in ADL's that may No No increase risk of falls Signs or symptoms of abuse and/or No No neglect since last visit Have you been in the hospital since your No No last visit? Has dressing in place as prescribed Yes Yes Has compression in place as prescribed Yes Yes Has offloadiing in place as prescribed N/A N/A Experienced any changes in pain level or No No management Left Footwear Regular Shoe Diabetic Shoe Right Footwear Regular Shoe Diabetic Shoe Pain Scale: 0-10 Numeric Is Patient Pain Free? Yes Yes WC - Nurse 1 - General Ulcer Measurement Start: 08/08/23 08:05 Freq: Status: Active Protocol: Activity Type Activity Date Activity User E-sign Co-sign Detail Recorded Client Recorded Date Recorded By Document 08/08/23 08:05 DL Desktop 08/08/23 08:15 DL Document 08/22/23 08:07 GM Desktop 08/22/23 08:18 GM 08/08/23 08/22/23 08:05 08:07 Wound Center Nurse 1 #9 LT ANKLE -Current Size (cm) - Length 1.3 1.5 -Current Size (cm) - Width 0.1 1 -Current Size (cm) - Depth 0.1 -Total Square Cm 0.13 1.5 -Photo Taken No -Epithelialization Small 1-33% -Tunneling No -Undermining/Tunneling No -Circular Undermining No -Exudate Amt None Present None Present -Exudate Type Serosanguineous -Wound Margin Distinct, Outline Attached -Necrosis Amt None Present (0 %) -Structure Exposed N/A -Texture (Jada-wound Skin Appearance) Scarring Assessed -Moisture (Jada-wound Skin Appearance) Dry/Scaly Assessed -Color (Jada-wound Skin Appearance) Hemosiderin Assessed Staining -Temperature (Jada-wound Skin No Abnormality No Abnormality Appearance) (Pt Warm) (Pt Warm) -Tenderness on Palpation (Jada-wound No No Skin Appearance) -Ulcer Cleansing Soap and Water Soap and Water -Foul Odor after Cleansing No No -Anesthetic Used 5% Lidocaine 5% Lidocaine Gel Gel -Wound Comment(s) wound had epifix/veil on, are appears to have a dark scab Left Calf (cm) 37.3 37 Left Ankle (cm) 22 22 WC - Nurse 2 - General Ulcer CM Notes Start: 08/08/23 08:05 Freq: Status: Active Protocol: Activity Type Activity Date Activity User E-sign Co-sign Detail Recorded Client Recorded Date Recorded By Document 08/08/23 08:38 BMF Desktop 08/08/23 08:46 [facility] 08/08/23 08:38 Wound Center Nurse 2 #9 LT ANKLE -Time 08:39 -Correct Patient Yes -Correct Side, Site, Position Yes -Correct Procedure Yes -Procedure Performed Yes -Type of Procedure Debridement -Clinical Debridement Subcutaneous -Tissue Removed Subcutaneous -Post Debridement (cm) - Length 1.2 -Post Debridement (cm) - Width 0.8 -Post Debridement (cm) - Depth 0.1 -Total Square (Post) (cm) 0.96 -Area of Debridement (cm) - Length 1.2 -Area of Debridement (cm) - Width 0.8 -Total Square (Area) (cm) 0.96 -Tunneling No -Undermining/Tunneling No -Circular Undermining No -Wound/Ulcer Outcome Not Healed -Ulcer Cleansing Rinsed/ Irrigated with Saline -Foul Odor after Cleansing No -Bioengineered Tissue Yes -Type of Bioengineered Tissue Epifix 18mm Disc -Expiration Date 04/03/28 -Product Lot Number [id number] -Percent Used 100 -Lot number of Saline Used [id number] -Bleeding Controlled with Pressure -Treatment Response Procedure Tolerated Well -Debridement - Subq, 1st 20sq cm No -Apply Skin Sub - 1st 25 sq cm - Legs 1 -Epifix 18mm Disc 3 Pain Scale: 0-10 Numeric Is Patient Pain Free? Yes Pain Scale: Adult NonVerbal Is Patient Pain Free? Yes - Nurse 3 - General Ulcer D/C NN Start: 08/08/23 08:05 Freq: Status: Active Protocol: Activity Type Activity Date Activity User E-sign Co-sign Detail Recorded Client Recorded Date Recorded By Document 08/08/23 08:59 DL Desktop 08/08/23 08:59 DL Edit Result 08/08/23 08:59 DL (1) [id number] 08/12/23 15:12 BMF Document 08/15/23 08:12 MT Desktop 08/15/23 08:32 MT (1) Right - Multi-Layered Wrap Application Unna Boot - Right => Unna Boot - Left ( ($) => $) 08/08/23 08/15/23 08:59 08:12 Wound Care Center Nurse 3 #9 LT ANKLE -Ulcer Cleansing Soap and Water -Foul Odor after Cleansing No No -Negative Pressure Wound Therapy N/A -Other Dressing Epifix -Primary Dressing Covered/Secured with Dry Gauze Dry Gauze & Roll Gauze, Secured with Tape Left -Multi-Layered Wrap Application Unna Boot - Left ($) Right -Multi-Layered Wrap Application Unna Boot - Left ($) Vital Signs Temperature (97.8 F-99.1 F) 98 F Temperature Source Temporal Pulse Rate (60-100) 100 Pulse Location Monitor Respiratory Rate (12-18) 18 Respiratory rate source Observation Oxygen Delivery Method Room Air Blood Pressure (90/60-120/80) 108/67 Blood Pressure Mean (mm Hg) 80 Source Monitor Position Sitting Blood Pressure Location Left Arm Pain Scale: 0-10 Numeric Is Patient Pain Free? Yes Yes WC - Visit Discharge Discharge Condition Stable Stable Ambulatory Status Ambulatory,Cane Cane,Unsteady Transportation Private Auto Private Auto Accompanied by daughter Medication Reconcilliation completed & No provided to patient/care provider Clinical Summary of Care Provided Yes Notes: nurse visit, sourav lucas reapplied skin sub left on. skin sub was clean dry and intact Facility Type Home Health Orders Sent Yes Assessment/Plan Assessment/Plan (1) Non-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: CODE(S): L97.322 - Non-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 layerexposed (2) Delayed wound healing: CODE(S): T14.8XXD - Other injury of unspecified body region, subsequent encounter (3) 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 layer exposed: CODE(S): L97.222 - 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 layer exposed (4) Venous insufficiency of both lower extremities: CODE(S): I87.2 - Venous insufficiency (chronic) (peripheral) (5) Essential (primary) hypertension: CODE(S): I10 - Essential (primary) hypertension (6) DM type 2 (diabetes mellitus, type 2): CODE(S): E11.9 - Type 2 diabetes mellitus without complications QUALIFIERS: Diabetes mellitus complication status: with other specified complication 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: with longterm use Qualified Code(s): E11.69 - Type 2 diabetes mellitus with other specified complication; Z79.4 - termination clerk (current) use of insulin (7) COPD (chronic obstructive pulmonary disease): CODE(S): J44.9 - Chronic obstructive pulmonary disease, unspecified (8) Hyperlipidemia: CODE(S): E78.5 - Hyperlipidemia, unspecified QUALIFIERS: Hyperlipidemia type: unspecified Qualified Code(s): E78.5 - Hyperlipidemia, unspecified (9) Chronic diastolic (congestive) heart failure: CODE(S): I50.32 - Chronic diastolic (congestive) heart failure PLAN: Plan Patient seen and evaluated I reviewed his previous treatment history by PCP. Patient had followed Dr. Anderson. Ulceration to the left anterior lower extremity remains healed. No signs of infection. Left lateral ankle measures 1.3 cm x 0.8 cm x 0.2 cm. Wound underwent debridement as noted in clinical panel above. EpiFix graft #10 applied to woundbed. Site dressed with Adaptic touch and anchored with Steri-Strips. Dry sterile dressing applied with Unna boot compression over site. He was instructed to not get the lower extremity/dressings wet. Lateral ankle wound demonstrates no change in size vs previous visit. Unna boot continued to be applied as ankle motion may be contributing factor of tension on wound. He was instructed to not get dressings wet LEAS ordered due to delayed healing of the anterolateral ankle wound and performed 07/23/2023. LEAS demonstrates triphasic Doppler waveforms at ankle level bilaterally with PVR satisfactory at all levels bilaterally. Resting FERMÍN indices normal bilateral. Digital brachial indices normal bilateral. No evidence of significant arterial occlusive disease of lower extremities. Discussed continued diabetic diet to ensure proper glucose control. Recent A1c 6.4%. Discussed that this is a good standing for control of his diabetes and will aid in wound healing. Discussed with to aid in daily foot checks as her is blind. Discussed wearing shoe gear at all times and to never go barefoot. Socks include barefoot. They voiced understanding of this today. Recommend continued follow-up with PCP for continued diabetic management. Discussed adequate protein intake to continue to aid in wound healing. Also discussed Negrito supplementation to aid in wound healing. Discussed signs and symptoms with the pertaining to infection. Discussed if she notices increasing redness about the wound margin spreading up the leg, any purulent drainage from the wound site, increasing foul odor from the wound, or if he experiences fever greater than 101 degree, nausea, vomiting, chills that these are signs of progressing infection and he needs to report to the ED. They voiced understanding of this today. The following work up and care recommendations were made: Dressing: EpiFix, Adaptic touch, Steri-Strips, Unna boot. Leave dressings intactand Do not get wet. Wash: Do not get wet Tissue growth optimization: EpiFix Offload: Ensure anterior leg is not bumped and discussed no picking at skin sites. Vascular: DP and PT pulses palpable with adequate capillary fill time. However skin demonstrates trophic changes consistent with microvascular disease. Edema: No edema currently, has history of chronic venous stasis. Recommend continued compression stocking. Infection: No signs of infection. Pain: May take [id number] Tylenol extra strength for discomfort. Host factors: DM type II, chronic venous stasis, CHF, COPD, blindness I answered all the patient's questions. To return to the wound healing center in 2 weeks or call sooner if the patient has any questions or concerns. 08/22/23 1236 <Electronically signed by Alejandro Talbot DPM> Cosigner Signature (if applicable): CC: ~ Signed [facility] Work Phone: [phone] 416-334403-07-2024 Progress note Author Alejandro Talbot [facility] August 08, 2023 8:40pm Note Date/Time August 08, 2023 8:33 am [facility] [address] [place] [address] Progress Note - Wound Care 08/08/23 0831 MR#: [id number] Acct: [id number] Name: ARMIN TURCIOS Rep #:[id number] : 1950 73 From: Alejandro bar DPM PCP: Dr. Jessi Olguin MD Status:REG RCR Location: History of Present Illness Date of Service: 08/08/23 Chief Complaint: Left Leg Ulcer History of Wound: Mr. Turcios is a 72-year-old with PMHx of of diabetes mellitus type 2, venous insufficiency bilateral lower extremity, history of multiple ulcerations, HTN, HLD, COPD, A-fib, CHF. He presents back to the woundcare center today accompanied by his for nonhealing left lower extremity ulceration. states he has either bumped his leg on something or picked at some skin on the front of his leg creating a new wound. They state they have been following with Dr. Anderson in [place] as well as PCP Dr. Olguin. They stateoccasional use of mupirocin topical ointment but otherwise have not been applying dressings to the site. They state the wound has been present for a fewweeks and has not made much progress and thus they were referred to the wound care center for continued wound healing. He denies N/V/F/chills. He has no further complaints. Subjective Subjective Patient is a 73-year-old male who follows up to the wound care center today for a left lower extremity ulceration. He is accompanied by daughter today due to fracturing her ankle. He has kept graft in place to wound site and has kept dressings clean, dry, intact. He does not keep feet elevated as much as heshould according to statements by . He denies constitutional symptoms today. Denies further complaints today. Objective Data Objective Data Vital Signs: Vital Signs Temp Pulse Resp BP O2 Del Method 96.5 F L 93 18 131/96 H Room Air 08/08/23 08:05 08/08/23 08:05 08/08/23 08:05 08/08/23 08:05 08/08/23 08:05 Oxygen Delivery Method Room Air Weight: 114.015 kg Body Mass Index (BMI) 31.4 Physical Exam Const alert, oriented x3 and no apparent distress General Appearance: cooperative HEENT normocephalic Eyes General Eye: normal appearance of both eyes Neck General: normal visual inspection Lymph Lymphatic: no lymphadenopathy noted and no lymphedema noted Resp normal respiratory effort Cardio regular rate and regular rhythm Extremity normal capillary refill, no joint enlargement, no calf tenderness and no pedal edema Extremity Narrative: DP pulses palpable and PT pulses weakly palpable bilateral. CFT less than 3 seconds to the digits bilateral. Hair growth absent to digits of foot bilateral. Dermatological: Skin is thin and demonstrating trophic changes bilateral lower extremity. Skin is excessively dry with peeling/flaking consistent with diabetic autonomic neuropathy and microvascular disease. Ulceration to the anterior aspect overlying the tibial crest remains healed, no signs of infection. Ulceration noted to the lateral ankle with mixed fibrogranular layer. No signs of infection. Musculoskeletal: Muscle strength 5 of 5 age-appropriate. Decreased ankle range of motion in dorsiflexion with the knee extended without pain or crepitus bilateral. Decreased range of motion of the first metatarsophalangeal joint without pain or crepitus bilateral. There is hammertoe deformity of lesser digits bilateral without pain to palpation. Skin no rashes or lesions noted, skin turgor normal and no jaundice Neuro moves all extremities Debridement Note Debridement Note Wound debrided: Left lateral ankle Laterality: Left Wound Grade/Stage: Miguel stage I Type of Debridement: Excisional debridement Anesthesia Used: 5% Lidocaine Gel Depth: Down to and including healthy tissue and in the subcutaneous layer Percentage of wound debrided: 100 Instrument Used: 5mm curette Tissue Removed: Fibrous, devitalized subcutaneous, biofilm, slough Severity: Fat Layer Exposed Amount of bleeding with debridement: Mild Bleeding Controlled with: Compression and gauze Patient tolerated procedure: Patient tolerated procedure well Post-Debridement Measurements and Additional Note: Post-Debridement Measurements/Treatment - Nurse 1 - General Ulcer Assessment Start: 08/08/23 08:05 Freq: Status: Active Protocol: BRYANNA.[email or web address] Activity Type Activity Date Activity User E-sign Co-sign Detail Recorded Client Recorded Date Recorded By Document 08/08/23 08:05 Desktop 08/08/23 08:15 DL 08/08/23 08:05 - Today's Visit Information Type of service Follow-up Visit (Physician/DOG TRAINER ) Arrival Mode Ambulatory,Cane Transfer Assist (Other) granddaughter Patient Identification Verified (Name & Yes ) Height and Weight Body Mass Index (BMI) 31.4 BMI Classification Obese Vital Signs Temperature (97.8 F-99.1 F) 96.5 F L Temperature Source Temporal Pulse Rate (60-100) 93 Pulse Location Monitor Respiratory Rate (12-18) 18 Respiratory rate source Observation Oxygen Delivery Method Room Air Blood Pressure (90/60-120/80) 131/96 H Blood Pressure Mean (mm Hg) 107 Source Monitor Position Semi-Fowlers Blood Pressure Location Left Forearm History Since Last Visit- (Skip if this is Patient's initial visit) Have you changed medications since your No last visit? Any new allergies or adverse reactions No Had a fall/change in ADL's that may No increase risk of falls Signs or symptoms of abuse and/or No neglect since last visit Have you been in the hospital since your No last visit? Has dressing in place as prescribed Yes Has compression in place as prescribed Yes Has offloadiing in place as prescribed N/A Experienced any changes in pain level or No management Left Footwear Regular Shoe Right Footwear Regular Shoe Pain Scale: 0-10 Numeric Is Patient Pain Free? Yes WC - Nurse 1 - General Ulcer Measurement Start: 08/08/23 08:05 Freq: Status: Active Protocol: Activity Type Activity Date Activity User E-sign Co-sign Detail Recorded Client Recorded Date Recorded By Document 08/08/23 08:05 DL Desktop 08/08/23 08:15 DL 08/08/23 08:05 Wound Center Nurse 1 #9 LT ANKLE -Current Size (cm) - Length 1.3 -Current Size (cm) - Width 0.1 -Total Square Cm 0.13 -Exudate Amt None Present -Exudate Type Serosanguineous -Wound Margin Distinct, Outline Attached -Necrosis Amt None Present (0 %) -Structure Exposed N/A -Texture (Jada-wound Skin Appearance) Scarring -Moisture (Jada-wound Skin Appearance) Dry/Scaly -Color (Jada-wound Skin Appearance) Hemosiderin Staining -Temperature (Jada-wound Skin No Abnormality Appearance) (Pt Warm) -Tenderness on Palpation (Jada-wound No Skin Appearance) -Ulcer Cleansing Soap and Water -Foul Odor after Cleansing No -Anesthetic Used 5% Lidocaine Gel Left Calf (cm) 37.3 Left Ankle (cm) 22 Assessment/Plan Assessment/Plan (1) Non-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: CODE(S): L97.322 - Non-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 layerexposed (2) Delayed wound healing: CODE(S): T14.8XXD - Other injury of unspecified body region, subsequent encounter (3) 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 layer exposed: CODE(S): L97.222 - 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 layer exposed (4) Venous insufficiency of both lower extremities: CODE(S): I87.2 - Venous insufficiency (chronic) (peripheral) (5) Essential (primary) hypertension: CODE(S): I10 - Essential (primary) hypertension (6) DM type 2 (diabetes mellitus, type 2): CODE(S): E11.9 - Type 2 diabetes mellitus without complications QUALIFIERS: 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: with longterm use Diabetes mellitus complication status: with other specified complication Qualified Code(s): E11.69 - Type 2 diabetes mellitus with other specified complication; Z79.4 - long-term (current) use of insulin (7) COPD (chronic obstructive pulmonary disease): CODE(S): J44.9 - Chronic obstructive pulmonary disease, unspecified (8) Hyperlipidemia: CODE(S): E78.5 - Hyperlipidemia, unspecified QUALIFIERS: Hyperlipidemia type: unspecified Qualified Code(s): E78.5 - Hyperlipidemia, unspecified (9) Chronic diastolic (congestive) heart failure: CODE(S): I50.32 - Chronic diastolic (congestive) heart failure PLAN: Plan Patient seen and evaluated I reviewed his previous treatment history by PCP. Patient had followed Dr. Anderson. Ulceration to the left anterior lower extremity remains healed. No signs of infection. Left lateral ankle measures 1.2 cm x 0.8 cm x 0.2 cm. Wound underwent debridement as noted in clinical panel above. EpiFix graft #9 applied to wound bed. Site dressed with Adaptic touch and anchored with Steri-Strips. Dry sterile dressing applied with Unna boot compression over site. He was instructed to not get the lower extremity/dressings wet. Lateral ankle wound demonstrates slight reduction in size vs previous visit. Unna boot applied as ankle motion may be contributing factor of tension on wound. He was instructed to not get dressings wet LEAS ordered due to delayed healing of the anterolateral ankle wound and performed 07/23/2023. LEAS demonstrates triphasic Doppler waveforms at ankle level bilaterally with PVR satisfactory at all levels bilaterally. Resting FERMÍN indices normal bilateral. Digital brachial indices normal bilateral. No evidence of significant arterial occlusive disease of lower extremities. Discussed continued diabetic diet to ensure proper glucose control. Recent A1c 6.4%. Discussed that this is a good standing for control of his diabetes and will aid in wound healing. Discussed with to aid in daily foot checks as her is blind. Discussed wearing shoe gear at all times and to never go barefoot. Socks include barefoot. They voiced understanding of this today. Recommend continued follow-up with PCP for continued diabetic management. Discussed adequate protein intake to continue to aid in wound healing. Also discussed Negrito supplementation to aid in wound healing. Discussed signs and symptoms with the pertaining to infection. Discussed if she notices increasing redness about the wound margin spreading up the leg, any purulent drainage from the wound site, increasing foul odor from the wound, or if he experiences fever greater than 101 degree, nausea, vomiting, chills that these are signs of progressing infection and he needs to report to the ED. They voiced understanding of this today. The following work up and care recommendations were made: Dressing: EpiFix, Adaptic touch, Steri-Strips, Unna boot. Leave dressings intactand Do not get wet. Wash: Do not get wet Tissue growth optimization: EpiFix Offload: Ensure anterior leg is not bumped and discussed no picking at skin sites. Vascular: DP and PT pulses palpable with adequate capillary fill time. However skin demonstrates trophic changes consistent with microvascular disease. Edema: No edema currently, has history of chronic venous stasis. Recommend continued compression stocking. Infection: No signs of infection. Pain: May take [id number] Tylenol extra strength for discomfort. Host factors: DM type II, chronic venous stasis, CHF, COPD, blindness I answered all the patient's questions. To return to the wound healing center in 2 weeks or call sooner if the patient has any questions or concerns. 08/08/232039 <Electronically signed by Alejandro Talbot DPM> Cosigner Signature (if applicable): CC: ~ Signed [facility] [place] Work Phone: [phone] Progress note Author Alejandro Talbot [facility] August 01, 2023 11:43am Note Date/Time August 01, 2023 8:31am [facility] [address] [place] [address] Progress Note - Wound Care 08/01/2331 MR#: [id number] Acct: [id number] Name: ARMIN TURCIOS Rep #:[id number] : 1950 73 From: Alejandro bar DPM PCP: Dr. Jessi Olguin MD Status:REG R Location: History of Present Illness Date of Service: 08/01/23 Chief Complaint: Left Leg Ulcer History of Wound: Mr. Turcios is a 72-year-old with PMHx of of diabetes mellitus type 2, venous insufficiency bilateral lower extremity, history of multiple ulcerations, HTN, HLD, COPD, A-fib, CHF. He presents back to the woundcare center today accompanied by his for nonhealing left lower extremity ulceration. states he has either bumped his leg on something or picked at some skin on the front of his leg creating a new wound. They state they have been following with Dr. Anderson in [place] as well as PCP Dr. Olguin. They stateoccasional use of mupirocin topical ointment but otherwise have not been applying dressings to the site. They state the wound has been present for a fewweeks and has not made much progress and thus they were referred to the wound care center for continued wound healing. He denies N/V/F/chills. He has no further complaints. Subjective Subjective Patient is a 73-year-old male who follows up to the wound care center today for a left lower extremity ulceration. He is accompanied by daughter today due to fracturing her ankle. He has kept graft in place to wound site and has kept dressings clean, dry, intact. He does not keep feet elevated as much as heshould according to statements by . He denies constitutional symptoms today. Denies further complaints today. Objective Data Objective Data Vital Signs: Vital Signs Temp Pulse Resp BP O2 Del Method 96.5 F L 86 20 H 141/76 H Room Air 08/01/23 08:00 08/01/23 08:00 08/01/23 08:00 08/01/23 08:00 07/18/23 08:00 Oxygen Delivery Method Room Air Weight: 114.015 kg Body Mass Index (BMI) 31.4 Physical Exam Const alert, oriented x3 and no apparent distress General Appearance: cooperative HEENT normocephalic Eyes General Eye: normal appearance of both eyes Neck General: normal visual inspection Lymph Lymphatic: no lymphadenopathy noted and no lymphedema noted Resp normal respiratory effort Cardio regular rate and regular rhythm Extremity normal capillary refill, no joint enlargement, no calf tenderness and no pedal edema Extremity Narrative: DP pulses palpable and PT pulses weakly palpable bilateral. CFT less than 3 seconds to the digits bilateral. Hair growth absent to digits of foot bilateral. Dermatological: Skin is thin and demonstrating trophic changes bilateral lower extremity. Skin is excessively dry with peeling/flaking consistent with diabetic autonomic neuropathy and microvascular disease. Ulceration to the anterior aspect overlying the tibial crest remains healed, no signs of infection. Ulceration noted to the lateral ankle with mixed fibrogranular layer. No signs of infection. Musculoskeletal: Muscle strength 5 of 5 age-appropriate. Decreased ankle range of motion in dorsiflexion with the knee extended without pain or crepitus bilateral. Decreased range of motion of the first metatarsophalangeal joint without pain or crepitus bilateral. There is hammertoe deformity of lesser digits bilateral without pain to palpation. Skin no rashes or lesions noted, skin turgor normal and no jaundice Neuro moves all extremities Debridement Note Debridement Note Wound debrided: Left lateral ankle Laterality: Left Wound Grade/Stage: Miguel stage I Type of Debridement: Excisional debridement Anesthesia Used: 5% Lidocaine Gel Depth: Down to and including healthy tissue and in the subcutaneous layer Percentage of wound debrided: 100 Instrument Used: 5mm curette Tissue Removed: Fibrous, devitalized subcutaneous, biofilm, slough Severity: Fat Layer Exposed Amount of bleeding with debridement: Mild Bleeding Controlled with: Compression and gauze Patient tolerated procedure: Patient tolerated procedure well Post-Debridement Measurements and Additional Note: Post-Debridement Measurements/Treatment - Nurse 1 - General Ulcer Assessment Start: 07/04/23 08:06 Freq: Status: Active Protocol: OLIVIA Activity Type Activity Date Activity User E-sign Co-sign Detail Recorded Client Recorded Date Recorded By Document 07/04/23 08:06 BMF Desktop 07/04/23 08:10 BMF Document 07/18/23 08:00 KW Desktop 07/18/23 08:06 KW Document 07/25/23 08:09 DL Desktop 07/25/23 08:15 DL Document 08/01/23 08:00 DL Desktop 08/01/23 08:07 DL 07/04/23 07/18/23 07/25/23 08:06 08:00 08:09 - Today's Visit Information Type of service Nurse-only Follow-up Visit Follow-up Visit Visit (Physician/DOG TRAINER (Physician/DOG TRAINER ) ) Arrival Mode Ambulatory,Cane Ambulatory,Cane Ambulatory,Cane Transfer Assistance None None Accompanied by Patient Identification Verified (Name & Yes Yes Yes ) Patient Requires Transmission-Based No No Precautions Height and Weight Body Mass Index (BMI) 31.4 31.4 31.4 BMI Classification Obese Obese Obese Vital Signs Temperature (97.8 F-99.1 F) 97 F L 97.4 F L 97.1 F L Temperature Source Temporal Temporal Temporal Pulse Rate (60-100) 86 92 95 Pulse Location Monitor Monitor Monitor Respiratory Rate (12-18) 16 18 20 H Respiratory rate source Observation Observation Observation Oxygen Delivery Method Room Air Room Air Blood Pressure (90/60-120/80) 127/79 H 115/61 125/68 H Blood Pressure Mean (mm Hg) 95 79 87 Source Monitor Monitor Monitor Position Sitting Sitting Blood Pressure Location Left Arm Left Arm History Since Last Visit- (Skip if this is Patient's initial visit) Have you changed medications since your No No No last visit? Any new allergies or adverse reactions No No No Had a fall/change in ADL's that may No No No increase risk of falls Signs or symptoms of abuse and/or No No No neglect since last visit Have you been in the hospital since your No No No last visit? Has dressing in place as prescribed Yes Yes Yes Has compression in place as prescribed Yes Yes Yes Has offloadiing in place as prescribed N/A N/A N/A Experienced any changes in pain level or No No management Left Footwear Diabetic Shoe Regular Shoe Right Footwear Diabetic Shoe Regular Shoe Pain Scale: 0-10 Numeric Is Patient Pain Free? Yes Yes Yes 08/01/23 08:00 - Today's Visit Information Type of service Follow-up Visit (Physician/DOG TRAINER ) Arrival Mode Ambulatory Transfer Assistance None Accompanied by Patient Identification Verified (Name & Yes ) Patient Requires Transmission-Based No Precautions Height and Weight Body Mass Index (BMI) 31.4 BMI Classification Obese Vital Signs Temperature (97.8 F-99.1 F) 96.5 F L Temperature Source Temporal Pulse Rate (60-100) 86 Pulse Location Monitor Respiratory Rate (12-18) 20 H Respiratory rate source Observation Oxygen Delivery Method Blood Pressure (90/60-120/80) 141/76 H Blood Pressure Mean (mm Hg) 97 Source Monitor Position Blood Pressure Location History Since Last Visit- (Skip if this is Patient's initial visit) Have you changed medications since your No last visit? Any new allergies or adverse reactions No Had a fall/change in ADL's that may No increase risk of falls Signs or symptoms of abuse and/or No neglect since last visit Have you been in the hospital since your No last visit? Has dressing in place as prescribed Yes Has compression in place as prescribed Yes Has offloadiing in place as prescribed N/A Experienced any changes in pain level or No management Left Footwear Right Footwear Pain Scale: 0-10 Numeric Is Patient Pain Free? Yes WC - Nurse 1 - General Ulcer Measurement Start: 07/04/23 08:06 Freq: Status: Active Protocol: Activity Type Activity Date Activity User E-sign Co-sign Detail Recorded Client Recorded Date Recorded By Document 07/04/23 08:06 BMF Desktop 07/04/23 08:10 BMF Document 07/18/23 08:00 KW Desktop 07/18/23 08:06 KW Document 07/25/23 08:09 DL Desktop 07/25/23 08:15 DL Document 08/01/23 08:00 DL Desktop 08/01/23 08:07 DL 07/04/23 07/18/23 07/25/23 08:06 08:00 08:09 Wound Center Nurse 1 #9 LT ANKLE -Current Size (cm) - Length 1.3 1.1 -Current Size (cm) - Width 0.9 0.9 -Current Size (cm) - Depth 0.3 0.2 -Total Square Cm 1.17 0.99 -Date of Last Picture (Recall this 07/18/23 field) -Photo Taken Yes -Exudate Amt Medium -Exudate Type Serosanguineous -Wound Margin Thickened & Rolled Under -Granulation Amt Large (67-100%) Large (67-100%) -Granulation Quality [place] Pale -Necrosis Amt Small (1-33%) None Present (0 %) -Necrotic Tissue Type Adherent Slough -Structure Exposed N/A -Texture (Jada-wound Skin Appearance) Assessed Scarring -Moisture (Jada-wound Skin Appearance) Assessed No Abnormality -Color (Jada-wound Skin Appearance) Assessed Hemosiderin Staining -Temperature (Jada-wound Skin No Abnormality No Abnormality Appearance) (Pt Warm) (Pt Warm) -Tenderness on Palpation (Jada-wound No Skin Appearance) -Ulcer Cleansing Rinsed/ Soap and Water Irrigated with Saline -Foul Odor after Cleansing No -Anesthetic Used 5% Lidocaine 5% Lidocaine Gel Gel -Wound Comment(s) epifix intact Lower Limb Edema Present Yes Right Calf (cm) Right Ankle (cm) Left Calf (cm) 38.2 37.8 37.7 Left Ankle (cm) 22.3 21.7 25.2 08/01/23 08:00 Wound Center Nurse 1 #9 LT ANKLE -Current Size (cm) - Length 1.5 -Current Size (cm) - Width 0.9 -Current Size (cm) - Depth 0.1 -Total Square Cm 1.35 -Date of Last Picture (Recall this field) -Photo Taken -Exudate Amt None Present -Exudate Type -Wound Margin Thickened -Granulation Amt None Present (0 %) -Granulation Quality -Necrosis Amt -Necrotic Tissue Type Eschar -Structure Exposed N/A -Texture (Jada-wound Skin Appearance) Scarring -Moisture (Jada-wound Skin Appearance) No Abnormality -Color (Jada-wound Skin Appearance) No Abnormality -Temperature (Jada-wound Skin No Abnormality Appearance) (Pt Warm) -Tenderness on Palpation (Jada-wound No Skin Appearance) -Ulcer Cleansing Soap and Water -Foul Odor after Cleansing No -Anesthetic Used 5% Lidocaine Gel -Wound Comment(s) Lower Limb Edema Present Right Calf (cm) 36.3 Right Ankle (cm) 21.8 Left Calf (cm) Left Ankle (cm) WC - Nurse 2 - General Ulcer CM Notes Start: 07/04/23 08:06 Freq: Status: Active Protocol: Activity Type Activity Date Activity User E-sign Co-sign Detail Recorded Client Recorded Date Recorded By Document 07/11/23 08:51 PL Tablet 07/11/23 08:53 PL Document 07/11/23 11:55 PL [id number] 07/11/23 11:56 PL Document 07/18/23 08:37 PL Tablet 07/18/23 08:39 PL Document 07/25/23 12:04 PL [id number] 07/25/23 12:06 PL 07/11/23 07/11/23 07/18/23 08:51 11:55 08:37 Wound Center Nurse 2 #9 LT ANKLE -Time 08:40 08:40 08:25 -Correct Patient Yes Yes Yes -Correct Side, Site, Position Yes Yes Yes -Correct Procedure Yes Yes Yes -Procedure Performed Yes Yes Yes -Type of Procedure Debridement Debridement Debridement -Clinical Debridement Subcutaneous Subcutaneous Subcutaneous -Tissue Removed Subcutaneous Subcutaneous Subcutaneous -Post Debridement (cm) - Length 1.3 1.3 1.2 -Post Debridement (cm) - Width 0.8 0.8 0.8 -Post Debridement (cm) - Depth 0.3 0.3 0.3 -Total Square (Post) (cm) 1.04 1.04 0.96 -Area of Debridement (cm) - Length 1.3 1.3 1.2 -Area of Debridement (cm) - Width 0.8 0.8 0.8 -Total Square (Area) (cm) 1.04 1.04 0.96 -Tunneling No No -Undermining/Tunneling No No -Circular Undermining No No -Wound/Ulcer Outcome Not Healed Not Healed -Ulcer Cleansing Rinsed/ Rinsed/ Irrigated with Irrigated with Saline Saline -Foul Odor after Cleansing No No -Bioengineered Tissue No No -Type of Bioengineered Tissue -Expiration Date -Product Lot Number -Percent Used -Bleeding Controlled with Pressure Pressure Pressure -Treatment Response Procedure Procedure Procedure Tolerated Well Tolerated Well Tolerated Well -Debridement - Subq, 1st 20sq cm Yes Yes Yes -Apply Skin Sub - 1st 25 sq cm - Legs -Epifix 18mm Disc Pain Scale: 0-10 Numeric Is Patient Pain Free? Yes Yes Yes 07/25/23 12:04 Wound Center Nurse 2 #9 LT ANKLE -Time 08:30 -Correct Patient Yes -Correct Side, Site, Position Yes -Correct Procedure Yes -Procedure Performed Yes -Type of Procedure Debridement -Clinical Debridement Subcutaneous -Tissue Removed Subcutaneous -Post Debridement (cm) - Length 1.4 -Post Debridement (cm) - Width 1.0 -Post Debridement (cm) - Depth 0.1 -Total Square (Post) (cm) 1.40 -Area of Debridement (cm) - Length 1.4 -Area of Debridement (cm) - Width 1.0 -Total Square (Area) (cm) 1.40 -Tunneling No -Undermining/Tunneling No -Circular Undermining No -Wound/Ulcer Outcome Not Healed -Ulcer Cleansing Rinsed/ Irrigated with Saline -Foul Odor after Cleansing No -Bioengineered Tissue Yes -Type of Bioengineered Tissue Epifix 18mm Disc -Expiration Date 03/03/28 -Product Lot Number [id number] -Percent Used 100 -Bleeding Controlled with Pressure -Treatment Response Procedure Tolerated Well -Debridement - Subq, 1st 20sq cm No -Apply Skin Sub - 1st 25 sq cm - Legs 1 -Epifix 18mm Disc 3 Pain Scale: 0-10 Numeric Is Patient Pain Free? Yes - Nurse 3 - General Ulcer D/C NN Start: 07/04/23 08:06 Freq: Status: Active Protocol: Activity Type Activity Date Activity User E-sign Co-sign Detail Recorded Client Recorded Date Recorded By Document 07/04/23 08:10 [employer] 07/04/23 08:11 BMF Document 07/18/23 08:32 KW Desktop 07/18/23 08:37 KW Document 07/25/23 08:41 KW Desktop 07/25/23 08:42 KW 07/04/23 07/18/23 07/25/23 08:10 08:32 08:41 Wound Care Center Nurse 3 #9 LT ANKLE -Other Dressing epifix left intact -Primary Dressing Covered/Secured with Dry Gauze Dry Gauze & Dry Gauze Roll Gauze, Secured with Tape Left -Multi-Layered Wrap Application Multi-Layer Unna Boot - Comp - Left ($) Left ($) Treatment Response Procedure Tolerated Well Pain Scale: 0-10 Numeric Is Patient Pain Free? Yes Yes Yes - Visit Discharge Discharge Condition Stable Stable Stable Ambulatory Status Ambulatory,Cane Ambulatory,Cane Ambulatory,Cane Transportation Private Auto Private Auto Accompanied by Medication Reconcilliation completed & No No provided to patient/care provider Clinical Summary of Care Provided Yes Yes Assessment/Plan Assessment/Plan (1) Non-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: CODE(S): L97.322 - Non-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 layerexposed (2) Delayed wound healing: CODE(S): T14.8XXD - Other injury of unspecified body region, subsequent encounter (3) 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 layer exposed: CODE(S): L97.222 - 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 layer exposed (4) Venous insufficiency of both lower extremities: CODE(S): I87.2 - Venous insufficiency (chronic) (peripheral) (5) Hyperlipidemia: CODE(S): E78.5 - Hyperlipidemia, unspecified QUALIFIERS: Hyperlipidemia type: unspecified Qualified Code(s): E78.5 - Hyperlipidemia, unspecified (6) DM type 2 (diabetes mellitus, type 2): CODE(S): E11.9 - Type 2 diabetes mellitus without complications QUALIFIERS: Diabetes mellitus complication status: with other specified complication Diabetes mellitus 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 Patient had followed Dr. Anderson. Ulceration to the left anterior lower extremity remains healed. No signs of infection. Left lateral ankle measures 1.2 cm x 0.9 cm x 0.2 cm. Wound underwent debridement as noted in clinical panel above. EpiFix graft #8 applied to wound bed. Site dressed with Adaptic touch and anchored with Steri-Strips. Dry sterile dressing applied with Unna boot compression over site. He was instructed to not get the lower extremity/dressings wet. Lateral ankle wound demonstrates slight reduction in size vs previous visit. Unna boot applied as ankle motion may be contributing factor of tension on wound. He was instructed to not get dressings wet LEAS ordered due to delayed healing of the anterolateral ankle wound and performed 07/23/2023. LEAS demonstrates triphasic Doppler waveforms at ankle levelbilaterally with PVR satisfactory at all levels bilaterally. Resting FERMÍN indices normal bilateral. Digital brachial indices normal bilateral. No evidence of significant arterial occlusive disease of lower extremities. Discussed continued diabetic diet to ensure proper glucose control. Recent A1c 6.4%. Discussed that this is a good standing for control of his diabetes and will aid in wound healing. Discussed with to aid in daily foot checks as her is blind. Discussed wearing shoe gear at all times and to never go barefoot. Socks include barefoot. They voiced understanding of this today. Recommend continued follow-up with PCP for continued diabetic management. Discussed adequate protein intake to continue to aid in wound healing. Also discussed Negrito supplementation to aid in wound healing. Discussed signs and symptoms with the pertaining to infection. Discussed if she notices increasing redness about the wound margin spreading up the leg, any purulent drainage from the wound site, increasing foul odor from the wound, or if he experiences fever greater than 101 degree, nausea, vomiting, chills that these are signs of progressing infection and he needs to report to the ED. They voiced understanding of this today. The following work up and care recommendations were made: Dressing: EpiFix, Adaptic touch, Steri-Strips, Unna boot. Leave dressings intactand Do not get wet. Wash: Do not get wet Tissue growth optimization: EpiFix Offload: Ensure anterior leg is not bumped and discussed no picking at skin sites. Vascular: DP and PT pulses palpable with adequate capillary fill time. However skin demonstrates trophic changes consistent with microvascular disease. Edema: No edema currently, has history of chronic venous stasis. Recommend continued compression stocking. Infection: No signs of infection. Pain: May take [id number] Tylenol extra strength for discomfort. Host factors: DM type II, chronic venous stasis, CHF, COPD, blindness I answered all the patient's questions. To return to the wound healing center in 1 week or call sooner if the patient has any questions or concerns. 08/01/23 1143 <Electronically signed by Alejandro Talbot DPM> Cosigner Signature (if applicable): CC: ~ Signed [facility] Work Phone: [phone] Progress note Author Alejandro Talbot [facility] July 25, 2023 8:48am Note Date/Time July 25, 2023 8:23am [facility] [address] [place] [address] Progress Note - Wound Care 07/25/2320 MR#: [id number] Acct: [id number] Name: ARMIN TURCIOS Rep #:[id number] : 1950 73 From: Alejandro bar DPM PCP: Dr. Jessi Olguin MD Status:REG RCR Location: History of Present Illness Date of Service: 07/25/23 Chief Complaint: Left Leg Ulcer History of Wound: Mr. Turcios is a 72-year-old with PMHx of of diabetes mellitus type 2, venous insufficiency bilateral lower extremity, history of multiple ulcerations, HTN, HLD, COPD, A-fib, CHF. He presents back to the woundcare center today accompanied by his for nonhealing left lower extremity ulceration. states he has either bumped his leg on something or picked at some skin on the front of his leg creating a new wound. They state they have been following with Dr. Anderson in [place] as well as PCP Dr. Olguin. They stateoccasional use of mupirocin topical ointment but otherwise have not been applying dressings to the site. They state the wound has been present for a fewweeks and has not made much progress and thus they were referred to the wound care center for continued wound healing. He denies N/V/F/chills. He has no further complaints. Subjective Subjective Patient is a 73-year-old male who follows up to the wound care center today for a left lower extremity ulceration. has been changing dressings daily with Dakin's and DSD. Wearing Tubigrip compression. She does state that he does not keep feet elevated as much as he should. He did obtain vascular studies. He denies constitutional symptoms today. Denies further complaints today. Objective Data Objective Data Vital Signs: Vital Signs Temp Pulse Resp BP O2 Del Method 97.1 F L 95 20 H 125/68 H Room Air 07/25/23 08:09 07/25/23 08:09 07/25/23 08:09 07/25/23 08:09 07/18/23 08:00 Oxygen Delivery Method Room Air Weight: 114.015 kg Body Mass Index (BMI) 31.4 Physical Exam Const alert, oriented x3 and no apparent distress General Appearance: cooperative HEENT normocephalic Eyes General Eye: normal appearance of both eyes Neck General: normal visual inspection Lymph Lymphatic: no lymphadenopathy noted and no lymphedema noted Resp normal respiratory effort Cardio regular rate and regular rhythm Extremity normal capillary refill, no joint enlargement, no calf tenderness and no pedal edema Extremity Narrative: DP pulses palpable and PT pulses weakly palpable bilateral. CFT less than 3 seconds to the digits bilateral. Hair growth absent to digits of foot bilateral. Dermatological: Skin is thin and demonstrating trophic changes bilateral lower extremity. Skin is excessively dry with peeling/flaking consistent with diabetic autonomic neuropathy and microvascular disease. Ulceration to the anterior aspect overlying the tibial crest has healed, no signs of infection. Ulceration noted to the lateral ankle with mixed fibrogranular layer. No signs of infection. Musculoskeletal: Muscle strength 5 of 5 age-appropriate. Decreased ankle range of motion in dorsiflexion with the knee extended without pain or crepitus bilateral. Decreased range of motion of the first metatarsophalangeal joint without pain or crepitus bilateral. There is hammertoe deformity of lesser digits bilateral without pain to palpation. Skin no rashes or lesions noted, skin turgor normal and no jaundice Neuro moves all extremities Debridement Note Debridement Note Wound debrided: Left lateral ankle Laterality: Left Wound Grade/Stage: Miguel stage I Type of Debridement: Excisional debridement Anesthesia Used: 5% Lidocaine Gel Depth: Down to and including healthy tissue and in the subcutaneous layer Percentage of wound debrided: 100 Instrument Used: 3mm curette Tissue Removed: Fibrous, devitalized subcutaneous, biofilm, slough Severity: Fat Layer Exposed Amount of bleeding with debridement: Mild Bleeding Controlled with: Compression and gauze Patient tolerated procedure: Patient tolerated procedure well Post-Debridement Measurements and Additional Note: Post-Debridement Measurements/Treatment - Nurse 1 - General Ulcer Assessment Start: 07/04/23 08:06 Freq: Status: Active Protocol: OLIVIA Activity Type Activity Date Activity User E-sign Co-sign Detail Recorded Client Recorded Date Recorded By Document 07/04/23 08:06 BMF Desktop 07/04/23 08:10 BMF Document 07/18/23 08:00 KW Desktop 07/18/23 08:06 KW Document 07/25/23 08:09 DL Desktop 07/25/23 08:15 DL 07/04/23 07/18/23 07/25/23 08:06 08:00 08:09 - Today's Visit Information Type of service Nurse-only Follow-up Visit Follow-up Visit Visit (Physician/DOG TRAINER (Physician/DOG TRAINER ) ) Arrival Mode Ambulatory,Cane Ambulatory,Cane Ambulatory,Cane Transfer Assistance None None Accompanied by Patient Identification Verified (Name & Yes Yes Yes ) Patient Requires Transmission-Based No No Precautions Height and Weight Body Mass Index (BMI) 31.4 31.4 31.4 BMI Classification Obese Obese Obese Vital Signs Temperature (97.8 F-99.1 F) 97 F L 97.4 F L 97.1 F L Temperature Source Temporal Temporal Temporal Pulse Rate (60-100) 86 92 95 Pulse Location Monitor Monitor Monitor Respiratory Rate (12-18) 16 18 20 H Respiratory rate source Observation Observation Observation Oxygen Delivery Method Room Air Room Air Blood Pressure (90/60-120/80) 127/79 H 115/61 125/68 H Blood Pressure Mean (mm Hg) 95 79 87 Source Monitor Monitor Monitor Position Sitting Sitting Blood Pressure Location Left Arm Left Arm History Since Last Visit- (Skip if this is Patient's initial visit) Have you changed medications since your No No No last visit? Any new allergies or adverse reactions No No No Had a fall/change in ADL's that may No No No increase risk of falls Signs or symptoms of abuse and/or No No No neglect since last visit Have you been in the hospital since your No No No last visit? Has dressing in place as prescribed Yes Yes Yes Has compression in place as prescribed Yes Yes Yes Has offloadiing in place as prescribed N/A N/A N/A Experienced any changes in pain level or No No management Left Footwear Diabetic Shoe Regular Shoe Right Footwear Diabetic Shoe Regular Shoe Pain Scale: 0-10 Numeric Is Patient Pain Free? Yes Yes Yes WC - Nurse 1 - General Ulcer Measurement Start: 07/04/23 08:06 Freq: Status: Active Protocol: Activity Type Activity Date Activity User E-sign Co-sign Detail Recorded Client Recorded Date Recorded By Document 07/04/23 08:06 BMF Desktop 07/04/23 08:10 BMF Document 07/18/23 08:00 KW Desktop 07/18/23 08:06 KW Document 07/25/23 08:09 DL Desktop 07/25/23 08:15 DL 07/04/23 07/18/23 07/25/23 08:06 08:00 08:09 Wound Center Nurse 1 #9 LT ANKLE -Current Size (cm) - Length 1.3 1.1 -Current Size (cm) - Width 0.9 0.9 -Current Size (cm) - Depth 0.3 0.2 -Total Square Cm 1.17 0.99 -Date of Last Picture (Recall this 07/18/23 field) -Photo Taken Yes -Exudate Amt Medium -Exudate Type Serosanguineous -Wound Margin Thickened & Rolled Under -Granulation Amt Large (67-100%) Large (67-100%) -Granulation Quality [place] Pale -Necrosis Amt Small (1-33%) None Present (0 %) -Necrotic Tissue Type Adherent Slough -Structure Exposed N/A -Texture (Jada-wound Skin Appearance) Assessed Scarring -Moisture (Jada-wound Skin Appearance) Assessed No Abnormality -Color (Jada-wound Skin Appearance) Assessed Hemosiderin Staining -Temperature (Jada-wound Skin No Abnormality No Abnormality Appearance) (Pt Warm) (Pt Warm) -Tenderness on Palpation (Jada-wound No Skin Appearance) -Ulcer Cleansing Rinsed/ Soap and Water Irrigated with Saline -Foul Odor after Cleansing No -Anesthetic Used 5% Lidocaine 5% Lidocaine Gel Gel -Wound Comment(s) epifix intact Lower Limb Edema Present Yes Left Calf (cm) 38.2 37.8 37.7 Left Ankle (cm) 22.3 21.7 25.2 WC - Nurse 2 - General Ulcer CM Notes Start: 07/04/23 08:06 Freq: Status: Active Protocol: Activity Type Activity Date Activity User E-sign Co-sign Detail Recorded Client Recorded Date Recorded By Document 07/11/23 08:51 PL Tablet 07/11/23 08:53 PL Document 07/11/23 11:55 PL [id number] 07/11/23 11:56 PL Document 07/18/23 08:37 PL Tablet 07/18/23 08:39 PL 07/11/23 07/11/23 07/18/23 08:51 11:55 08:37 Wound Center Nurse 2 #9 LT ANKLE -Time 08:40 08:40 08:25 -Correct Patient Yes Yes Yes -Correct Side, Site, Position Yes Yes Yes -Correct Procedure Yes Yes Yes -Procedure Performed Yes Yes Yes -Type of Procedure Debridement Debridement Debridement -Clinical Debridement Subcutaneous Subcutaneous Subcutaneous -Tissue Removed Subcutaneous Subcutaneous Subcutaneous -Post Debridement (cm) - Length 1.3 1.3 1.2 -Post Debridement (cm) - Width 0.8 0.8 0.8 -Post Debridement (cm) - Depth 0.3 0.3 0.3 -Total Square (Post) (cm) 1.04 1.04 0.96 -Area of Debridement (cm) - Length 1.3 1.3 1.2 -Area of Debridement (cm) - Width 0.8 0.8 0.8 -Total Square (Area) (cm) 1.04 1.04 0.96 -Tunneling No No -Undermining/Tunneling No No -Circular Undermining No No -Wound/Ulcer Outcome Not Healed Not Healed -Ulcer Cleansing Rinsed/ Rinsed/ Irrigated with Irrigated with Saline Saline -Foul Odor after Cleansing No No -Bioengineered Tissue No No -Bleeding Controlled with Pressure Pressure Pressure -Treatment Response Procedure Procedure Procedure Tolerated Well Tolerated Well Tolerated Well -Debridement - Subq, 1st 20sq cm Yes Yes Yes Pain Scale: 0-10 Numeric Is Patient Pain Free? Yes Yes Yes - Nurse 3 - General Ulcer D/C NN Start: 07/04/23 08:06 Freq: Status: Active Protocol: Activity Type Activity Date Activity User E-sign Co-sign Detail Recorded Client Recorded Date Recorded By Document 07/04/23 08:10 [facility] Desktop 07/04/23 08:11 BM Document 07/18/23 08:32 KW Desktop 07/18/23 08:37 KW 07/04/23 07/18/23 08:10 08:32 Wound Care Center Nurse 3 #9 LT ANKLE -Other Dressing epifix left intact -Primary Dressing Covered/Secured with Dry Gauze Dry Gauze & Roll Gauze, Secured with Tape Left -Multi-Layered Wrap Application Multi-Layer Comp - Left ($) Treatment Response Procedure Tolerated Well Pain Scale: 0-10 Numeric Is Patient Pain Free? Yes Yes - Visit Discharge Discharge Condition Stable Stable Ambulatory Status Ambulatory,Cane Ambulatory,Cane Transportation Private Auto Private Auto Accompanied by Medication Reconcilliation completed & No provided to patient/care provider Clinical Summary of Care Provided Yes Assessment/Plan Assessment/Plan (1) Non-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: CODE(S): L97.322 - Non-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 layerexposed (2) Delayed wound healing: CODE(S): T14.8XXD - Other injury of unspecified body region, subsequent encounter (3) 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 layer exposed: CODE(S): L97.222 - 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 layer exposed (4) Venous insufficiency of both lower extremities: CODE(S): I87.2 - Venous insufficiency (chronic) (peripheral) (5) Hyperlipidemia: CODE(S): E78.5 - Hyperlipidemia, unspecified QUALIFIERS: Hyperlipidemia type: unspecified Qualified Code(s): E78.5 - Hyperlipidemia, unspecified (6) DM type 2 (diabetes mellitus, type 2): CODE(S): E11.9 - Type 2 diabetes mellitus without complications QUALIFIERS: Diabetes mellitus complication status: with other specified complication 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: with longterm use Qualified Code(s): E11.69 - Type 2 diabetes mellitus with other specified complication; Z79.4 - termination clerk (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 Patient had followed Dr. Anderson. Ulceration to the left anterior lower extremity remains healed. No signs of infection. Left lateral ankle measures 1.4 cm x 1.0 cm x 0.3 cm. Wound underwent debridement as noted in clinical panel above. EpiFix graft #7 applied to wound bed. Site dressed with Adaptic touch and anchored with Steri-Strips. Dry sterile dressing applied with Unna boot compression over site. He was instructed to not get the lower extremity/dressings wet. Lateral ankle wound demonstrates no reduction in size vs previous visit and is slightly increased in size. Unna boot applied at last visit as ankle motion may be contributing factor of tension on wound. He was instructed to not get dressings wet LEAS ordered due to delayed healing of the anterolateral ankle wound and performed 07/23/2023. LEAS demonstrates triphasic Doppler waveforms at ankle level bilaterally with PVR satisfactory at all levels bilaterally. Resting FERMÍN indices normal bilateral. Digital brachial indices normal bilateral. No evidence of significant arterial occlusive disease of lower extremities. Discussed continued diabetic diet to ensure proper glucose control. Recent A1c 6.4%. Discussed that this is a good standing for control of his diabetes and will aid in wound healing. Discussed with to aid in daily foot checks as her is blind. Discussed wearing shoe gear at all times and to never go barefoot. Socks include barefoot. They voiced understanding of this today. Recommend continued follow-up with PCP for continued diabetic management. Discussed adequate protein intake to continue to aid in wound healing. Also discussed Negrito supplementation to aid in wound healing. Discussed signs and symptoms with the pertaining to infection. Discussed if she notices increasing redness about the wound margin spreading up the leg, any purulent drainage from the wound site, increasing foul odor from the wound, or if he experiences fever greater than 101 degree, nausea, vomiting, chills that these are signs of progressing infection and he needs to report to the ED. They voiced understanding of this today. The following work up and care recommendations were made: Dressing: EpiFix, Adaptic touch, Steri-Strips, Unna boot. Leave dressings intactand Do not get wet. Wash: Do not get wet Tissue growth optimization: EpiFix Offload: Ensure anterior leg is not bumped and discussed no picking at skin sites. Vascular: DP and PT pulses palpable with adequate capillary fill time. However skin demonstrates trophic changes consistent with microvascular disease. Edema: No edema currently, has history of chronic venous stasis. Recommend continued compression stocking. Infection: No signs of infection. Pain: May take [id number] Tylenol extra strength for discomfort. Host factors: DM type II, chronic venous stasis, CHF, COPD, blindness I answered all the patient's questions. To return to the wound healing center in 1 week or call sooner if the patient has any questions or concerns. 07/25/23 0848 <Electronically signed by Alejandro Talbot DPM> Cosigner Signature (if applicable): CC: ~ Signed [facility] Work Phone: [phone] Progress note Author Alejandro Talbot [facility] July 18, 2023 8:41am Note Date/Time July 18, 2023 8:21am [facility] [address] [place] [address] Progress Note - Wound Care 07/18/23 0817 MR#: [id number] Acct: [id number] Name: ARMIN TURCIOS Rep #:[id number] : 1950 73 From: Alejandro bar DPM PCP: Dr. Jessi Olguin MD Status:REG RCR Location: History of Present Illness Date of Service: 07/18/23 Chief Complaint: Left Leg Ulcer History of Wound: Mr. Turcios is a 72-year-old with PMHx of of diabetes mellitus type 2, venous insufficiency bilateral lower extremity, history of multiple ulcerations, HTN, HLD, COPD, A-fib, CHF. He presents back to the woundcare center today accompanied by his for nonhealing left lower extremity ulceration. states he has either bumped his leg on something or picked at some skin on the front of his leg creating a new wound. They state they have been following with Dr. Anderson in [place] as well as PCP Dr. Olguin. They stateoccasional use of mupirocin topical ointment but otherwise have not been applying dressings to the site. They state the wound has been present for a fewweeks and has not made much progress and thus they were referred to the wound care center for continued wound healing. He denies N/V/F/chills. He has no further complaints. Subjective Subjective Patient is a 73-year-old male who follows up to the wound care center today for a left lower extremity ulceration. has been changing dressings daily with Dakin's and DSD. Wearing Tubigrip compression. She does state that he does not keep feet elevated as much as he should. He denies constitutional symptoms today. Denies further complaints today. Objective Data Objective Data Vital Signs: Vital Signs Temp Pulse Resp BP O2 Del Method 97.4 F L 92 18 115/61 Room Air 07/18/23 08:00 07/18/23 08:00 07/18/23 08:00 07/18/23 08:00 07/18/23 08:00 Oxygen Delivery Method Room Air Weight: 114.015 kg Body Mass Index (BMI) 31.4 Physical Exam Const alert, oriented x3 and no apparent distress General Appearance: cooperative HEENT normocephalic Eyes General Eye: normal appearance of both eyes Neck General: normal visual inspection Lymph Lymphatic: no lymphadenopathy noted and no lymphedema noted Resp normal respiratory effort Cardio regular rate and regular rhythm Extremity normal capillary refill, no joint enlargement, no calf tenderness and no pedal edema Extremity Narrative: DP pulses palpable and PT pulses weakly palpable bilateral. CFT less than 3 seconds to the digits bilateral. Hair growth absent to digits of foot bilateral. Dermatological: Skin is thin and demonstrating trophic changes bilateral lower extremity. Skin is excessively dry with peeling/flaking consistent with diabetic autonomic neuropathy and microvascular disease. Ulceration to the anterior aspect overlying the tibial crest has healed, no signs of infection. Ulceration noted to the lateral ankle with mixed fibrogranular layer. No signs of infection. Musculoskeletal: Muscle strength 5 of 5 age-appropriate. Decreased ankle range of motion in dorsiflexion with the knee extended without pain or crepitus bilateral. Decreased range of motion of the first metatarsophalangeal joint without pain or crepitus bilateral. There is hammertoe deformity of lesser digits bilateral without pain to palpation. Skin no rashes or lesions noted, skin turgor normal and no jaundice Neuro moves all extremities Debridement Note Debridement Note Wound debrided: Left lateral ankle Laterality: Left Wound Grade/Stage: Miguel stage I Type of Debridement: Excisional debridement Anesthesia Used: 5% Lidocaine Gel Depth: Down to and including healthy tissue and in the subcutaneous layer Percentage of wound debrided: 100 Instrument Used: 3mm curette Tissue Removed: Fibrous, devitalized subcutaneous, biofilm, slough Severity: Fat Layer Exposed Amount of bleeding with debridement: Mild Bleeding Controlled with: Compression and gauze Patient tolerated procedure: Patient tolerated procedure well Post-Debridement Measurements and Additional Note: Post-Debridement Measurements/Treatment BRYANNA - Nurse 1 - General Ulcer Assessment Start: 07/04/23 08:06 Freq: Status: Active Protocol: OLIVIA Activity Type Activity Date Activity User E-sign Co-sign Detail Recorded Client Recorded Date Recorded By Document 07/04/23 08:06 [facility] Desktop 07/04/23 08:10 [facility] Document 07/18/23 08:00 KW Desktop 07/18/23 08:06 KW 07/04/23 07/18/23 08:06 08:00 WC - Today's Visit Information Type of service Nurse-only Follow-up Visit Visit (Physician/DOG TRAINER ) Arrival Mode Ambulatory,Cane Ambulatory,Cane Transfer Assistance None Accompanied by Patient Identification Verified (Name & Yes Yes ) Patient Requires Transmission-Based No Precautions Height and Weight Body Mass Index (BMI) 31.4 31.4 BMI Classification Obese Obese Vital Signs Temperature (97.8 F-99.1 F) 97 F L 97.4 F L Temperature Source Temporal Temporal Pulse Rate (60-100) 86 92 Pulse Location Monitor Monitor Respiratory Rate (12-18) 16 18 Respiratory rate source Observation Observation Oxygen Delivery Method Room Air Room Air Blood Pressure (90/60-120/80) 127/79 H 115/61 Blood Pressure Mean (mm Hg) 95 79 Source Monitor Monitor Position Sitting Sitting Blood Pressure Location Left Arm Left Arm History Since Last Visit- (Skip if this is Patient's initial visit) Have you changed medications since your No No last visit? Any new allergies or adverse reactions No No Had a fall/change in ADL's that may No No increase risk of falls Signs or symptoms of abuse and/or No No neglect since last visit Have you been in the hospital since your No No last visit? Has dressing in place as prescribed Yes Yes Has compression in place as prescribed Yes Yes Has offloadiing in place as prescribed N/A N/A Experienced any changes in pain level or No management Left Footwear Diabetic Shoe Regular Shoe Right Footwear Diabetic Shoe Regular Shoe Pain Scale: 0-10 Numeric Is Patient Pain Free? Yes Yes - Nurse 1 - General Ulcer Measurement Start: 07/04/23 08:06 Freq: Status: Active Protocol: Activity Type Activity Date Activity User E-sign Co-sign Detail Recorded Client Recorded Date Recorded By Document 07/04/23 08:06 [facility] Desktop 07/04/23 08:10 BM Document 07/18/23 08:00 KW Desktop 07/18/23 08:06 KW 07/04/23 07/18/23 08:06 08:00 Wound Center Nurse 1 #9 LT ANKLE -Current Size (cm) - Length 1.3 -Current Size (cm) - Width 0.9 -Current Size (cm) - Depth 0.3 -Total Square Cm 1.17 -Date of Last Picture (Recall this 07/18/23 field) -Photo Taken Yes -Granulation Amt Large (67-100%) -Granulation Quality [place] -Necrosis Amt Small (1-33%) -Necrotic Tissue Type Adherent Slough -Texture (Jada-wound Skin Appearance) Assessed -Moisture (Jada-wound Skin Appearance) Assessed -Color (Jada-wound Skin Appearance) Assessed -Temperature (Jada-wound Skin No Abnormality Appearance) (Pt Warm) -Ulcer Cleansing Rinsed/ Irrigated with Saline -Anesthetic Used 5% Lidocaine Gel -Wound Comment(s) epifix intact Lower Limb Edema Present Yes Left Calf (cm) 38.2 37.8 Left Ankle (cm) 22.3 21.7 WC - Nurse 2 - General Ulcer CM Notes Start: 07/04/23 08:06 Freq: Status: Active Protocol: Activity Type Activity Date Activity User E-sign Co-sign Detail Recorded Client Recorded Date Recorded By Document 07/11/23 08:51 PL Tablet 07/11/23 08:53 PL Document 07/11/23 11:55 PL [id number] 07/11/23 11:56 PL 07/11/23 07/11/23 08:51 11:55 Wound Center Nurse 2 #9 LT ANKLE -Time 08:40 08:40 -Correct Patient Yes Yes -Correct Side, Site, Position Yes Yes -Correct Procedure Yes Yes -Procedure Performed Yes Yes -Type of Procedure Debridement Debridement -Clinical Debridement Subcutaneous Subcutaneous -Tissue Removed Subcutaneous Subcutaneous -Post Debridement (cm) - Length 1.3 1.3 -Post Debridement (cm) - Width 0.8 0.8 -Post Debridement (cm) - Depth 0.3 0.3 -Total Square (Post) (cm) 1.04 1.04 -Area of Debridement (cm) - Length 1.3 1.3 -Area of Debridement (cm) - Width 0.8 0.8 -Total Square (Area) (cm) 1.04 1.04 -Tunneling No -Undermining/Tunneling No -Circular Undermining No -Wound/Ulcer Outcome Not Healed -Ulcer Cleansing Rinsed/ Irrigated with Saline -Foul Odor after Cleansing No -Bioengineered Tissue No -Bleeding Controlled with Pressure Pressure -Treatment Response Procedure Procedure Tolerated Well Tolerated Well -Debridement - Subq, 1st 20sq cm Yes Yes Pain Scale: 0-10 Numeric Is Patient Pain Free? Yes Yes - Nurse 3 - General Ulcer D/C NN Start: 07/04/23 08:06 Freq: Status: Active Protocol: Activity Type Activity Date Activity User E-sign Co-sign Detail Recorded Client Recorded Date Recorded By Document 07/04/23 08:10 [facility] Desktop 07/04/23 08:11 [facility] 07/04/23 08:10 Wound Care Center Nurse 3 #9 LT ANKLE -Other Dressing epifix left intact -Primary Dressing Covered/Secured with Dry Gauze Left -Multi-Layered Wrap Application Multi-Layer Comp - Left ($) Treatment Response Procedure Tolerated Well Pain Scale: 0-10 Numeric Is Patient Pain Free? Yes WC - Visit Discharge Discharge Condition Stable Ambulatory Status Ambulatory,Cane Transportation Private Auto Accompanied by Assessment/Plan Assessment/Plan (1) Non-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: CODE(S): L97.322 - Non-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 layerexposed (2) Delayed wound healing: CODE(S): T14.8XXD - Other injury of unspecified body region, subsequent encounter (3) 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 layer exposed: CODE(S): L97.222 - 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 layer exposed (4) Venous insufficiency of both lower extremities: CODE(S): I87.2 - Venous insufficiency (chronic) (peripheral) (5) Hyperlipidemia: CODE(S): E78.5 - Hyperlipidemia, unspecified QUALIFIERS: Hyperlipidemia type: unspecified Qualified Code(s): E78.5 - Hyperlipidemia, unspecified (6) DM type 2 (diabetes mellitus, type 2): CODE(S): E11.9 - Type 2 diabetes mellitus without complications QUALIFIERS: 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: with 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 use Diabetes mellitus complication status: with other specified complication Qualified Code(s): E11.69 - Type 2 diabetes mellitus with other specified complication; Z79.4 - termination clerk (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 Patient had followed Dr. Anderson. Ulceration to the left anterior lower extremity remains healed. No signs of infection. Left lateral ankle measures 1.2 cm x 0.8 cm x 0.3 cm. Wound underwent debridement as noted in clinical panel above. EpiFix graft #6 applied to wound bed 07/04/23. We will refrain from continued application of EpiFix graft at this time due to wound not progressing. Dakin's wet-to-dry dressing was applied today with Tubigrip compression stocking. They will change the dressing daily. Will look to reapply Epifix at next visit. Lateral ankle wound demonstrates no reduction in size vs previous visit. Unna boot applied at last visit as ankle motion may be contributing factor of tension on wound. He was instructed to not get dressings wet LEAS ordered due to delayed healing of the anterolateral ankle wound, awaiting results. Discussed continued diabetic diet to ensure proper glucose control. Recent A1c 6.4%. Discussed that this is a good standing for control of his diabetes and will aid in wound healing. Discussed with to aid in daily foot checks as her is blind. Discussed wearing shoe gear at all times and to never go barefoot. Socks include barefoot. They voiced understanding of this today. Recommend continued follow-up with PCP for continued diabetic management. Discussed adequate protein intake to continue to aid in wound healing. Also discussed Negrito supplementation to aid in wound healing. Discussed signs and symptoms with the pertaining to infection. Discussed if she notices increasing redness about the wound margin spreading up the leg, any purulent drainage from the wound site, increasing foul odor from the wound, or if he experiences fever greater than 101 degree, nausea, vomiting, chills that these are signs of progressing infection and he needs to report to the ED. They voiced understanding of this today. The following work up and care recommendations were made: Dressing: EpiFix, Adaptic touch, Steri-Strips, Unna boot. Leave dressings intactand Do not get wet. Wash: Do not get wet Tissue growth optimization: EpiFix Offload: Ensure anterior leg is not bumped and discussed no picking at skin sites. Vascular: DP and PT pulses palpable with adequate capillary fill time. However skin demonstrates trophic changes consistent with microvascular disease. Edema: No edema currently, has history of chronic venous stasis. Recommend continued compression stocking. Infection: No signs of infection. Pain: May take [id number] Tylenol extra strength for discomfort. Host factors: DM type II, chronic venous stasis, CHF, COPD, blindness I answered all the patient's questions. To return to the wound healing center in 1 week or call sooner if the patient has any questions or concerns. 07/18/23 0841 <Electronically signed by Alejandro Talbot DPM> Cosigner Signature (if applicable): CC: ~ Signed [facility] Work Phone: [phone] 974-360602-08-2024 Progress note Author Alejandro Talbot [facility] July 11, 2023 8:59am Note Date/Time July 11, 2023 8 :39am [facility] [address] [place] [address] Progress Note - Wound Care 07/11/2335 MR#: [id number] Acct: [id number] Name: ARMIN TURCIOS Rep #:[id number] : 1950 73 From: Alejandro bar DPM PCP: Dr. Jessi Olguin MD Status:REG RCR Location: History of Present Illness Date of Service: 07/11/23 Chief Complaint: Left Leg Ulcer History of Wound: Mr. Turcios is a 72-year-old with PMHx of of diabetes mellitus type 2, venous insufficiency bilateral lower extremity, history of multiple ulcerations, HTN, HLD, COPD, A-fib, CHF. He presents back to the woundcare center today accompanied by his for nonhealing left lower extremity ulceration. states he has either bumped his leg on something or picked at some skin on the front of his leg creating a new wound. They state they have been following with Dr. Anderson in [place] as well as PCP Dr. Olguin. They stateoccasional use of mupirocin topical ointment but otherwise have not been applying dressings to the site. They state the wound has been present for a fewweeks and has not made much progress and thus they were referred to the wound care center for continued wound healing. He denies N/V/F/chills. He has no further complaints. Subjective Subjective Patient is a 73-year-old male who follows up to the wound care center today for a left lower extremity ulceration. His states she has left graft in place and kept unna boot dry. She does state that he does not keep feet elevated as much as he should. He denies constitutional symptoms today. Denies further complaints today. Objective Data Objective Data Vital Signs: Vital Signs Temp Pulse Resp BP O2 Del Method 97 F L 86 16 127/79 H Room Air 07/04/23 08:06 07/04/23 08:06 07/04/23 08:06 07/04/23 08:06 07/04/23 08:06 Oxygen Delivery Method Room Air Weight: 114.015 kg Body Mass Index (BMI) 31.4 Physical Exam Const alert, oriented x3 and no apparent distress General Appearance: cooperative HEENT normocephalic Eyes General Eye: normal appearance of both eyes Neck General: normal visual inspection Lymph Lymphatic: no lymphadenopathy noted and no lymphedema noted Resp normal respiratory effort Cardio regular rate and regular rhythm Extremity normal capillary refill, no joint enlargement, no calf tenderness and no pedal edema Extremity Narrative: DP pulses palpable and PT pulses weakly palpable bilateral. CFT less than 3 seconds to the digits bilateral. Hair growth absent to digits of foot bilateral. Dermatological: Skin is thin and demonstrating trophic changes bilateral lower extremity. Skin is excessively dry with peeling/flaking consistent with diabetic autonomic neuropathy and microvascular disease. Ulceration to the anterior aspect overlying the tibial crest has healed, no signs of infection. Ulceration noted to the lateral ankle with mixed fibrogranular layer. No signs of infection. Musculoskeletal: Muscle strength 5 of 5 age-appropriate. Decreased ankle range of motion in dorsiflexion with the knee extended without pain or crepitus bilateral. Decreased range of motion of the first metatarsophalangeal joint without pain or crepitus bilateral. There is hammertoe deformity of lesser digits bilateral without pain to palpation. Skin no rashes or lesions noted, skin turgor normal and no jaundice Neuro moves all extremities Debridement Note Debridement Note Wound debrided: Left lateral ankle Laterality: Left Wound Grade/Stage: Miguel stage I Type of Debridement: Excisional debridement Anesthesia Used: 5% Lidocaine Gel Depth: Down to and including healthy tissue and in the subcutaneous layer Percentage of wound debrided: 100 Instrument Used: 3mm curette Tissue Removed: Fibrous, devitalized subcutaneous, biofilm, slough Severity: Fat Layer Exposed Amount of bleeding with debridement: Mild Bleeding Controlled with: Compression and gauze Patient tolerated procedure: Patient tolerated procedure well Post-Debridement Measurements and Additional Note: Post-Debridement Measurements/Treatment - Nurse 1 - General Ulcer Assessment Start: 07/04/23 08:06 Freq: Status: Active Protocol: OLIVIA Activity Type Activity Date Activity User E-sign Co-sign Detail Recorded Client Recorded Date Recorded By Document 07/04/23 08:06 [facility] Desktop 07/04/23 08:10 [facility] 07/04/23 08:06 WC - Today's Visit Information Type of service Nurse-only Visit Arrival Mode Ambulatory,Cane Transfer Assistance None Patient Identification Verified (Name & Yes ) Patient Requires Transmission-Based No Precautions Height and Weight Body Mass Index (BMI) 31.4 BMI Classification Obese Vital Signs Temperature (97.8 F-99.1 F) 97 F L Temperature Source Temporal Pulse Rate (60-100) 86 Pulse Location Monitor Respiratory Rate (12-18) 16 Respiratory rate source Observation Oxygen Delivery Method Room Air Blood Pressure (90/60-120/80) 127/79 H Blood Pressure Mean (mm Hg) 95 Source Monitor Position Sitting Blood Pressure Location Left Arm History Since Last Visit- (Skip if this is Patient's initial visit) Have you changed medications since your No last visit? Any new allergies or adverse reactions No Had a fall/change in ADL's that may No increase risk of falls Signs or symptoms of abuse and/or No neglect since last visit Have you been in the hospital since your No last visit? Has dressing in place as prescribed Yes Has compression in place as prescribed Yes Has offloadiing in place as prescribed N/A Left Footwear Diabetic Shoe Right Footwear Diabetic Shoe Pain Scale: 0-10 Numeric Is Patient Pain Free? Yes - Nurse 1 - General Ulcer Measurement Start: 07/04/23 08:06 Freq: Status: Active Protocol: Activity Type Activity Date Activity User E-sign Co-sign Detail Recorded Client Recorded Date Recorded By Document 07/04/23 08:06 [facility] [employer] 07/04/23 08:10 [facility] 07/04/23 08:06 Wound Center Nurse 1 #9 LT ANKLE -Wound Comment(s) epifix intact Lower Limb Edema Present Yes Left Calf (cm) 38.2 Left Ankle (cm) 22.3 - Nurse 3 - General Ulcer D/C NN Start: 07/04/23 08:06 Freq: Status: Active Protocol: Activity Type Activity Date Activity User E-sign Co-sign Detail Recorded Client Recorded Date Recorded By Document 07/04/23 08:10 [facility] Desktop 07/04/23 08:11 [facility] 07/04/23 08:10 Wound Care Center Nurse 3 #9 LT ANKLE -Other Dressing epifix left intact -Primary Dressing Covered/Secured with Dry Gauze Left -Multi-Layered Wrap Application Multi-Layer Comp - Left ($) Treatment Response Procedure Tolerated Well Pain Scale: 0-10 Numeric Is Patient Pain Free? Yes WC - Visit Discharge Discharge Condition Stable Ambulatory Status Ambulatory,Cane Transportation Private Auto Accompanied by Assessment/Plan Assessment/Plan (1) Non-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: CODE(S): L97.322 - Non-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 layerexposed (2) Delayed wound healing: CODE(S): T14.8XXD - Other injury of unspecified body region, subsequent encounter (3) 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 layer exposed: CODE(S): L97.222 - 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 layer exposed (4) Venous insufficiency of both lower extremities: CODE(S): I87.2 - Venous insufficiency (chronic) (peripheral) (5) Hyperlipidemia: CODE(S): E78.5 - Hyperlipidemia, unspecified QUALIFIERS: Hyperlipidemia type: unspecified Qualified Code(s): E78.5 - Hyperlipidemia, unspecified (6) DM type 2 (diabetes mellitus, type 2): CODE(S): E11.9 - Type 2 diabetes mellitus without complications QUALIFIERS: Diabetes mellitus longterm insulin use: with longterm use Diabetes mellitus complication status: with other specified complication Qualified Code(s): E11.69 - Type 2 diabetes mellitus with other specified complication; Z79.4 - long-term (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 Patient had followed Dr. Anderson. Ulceration to the left anterior lower extremity remains healed. No signs of infection. Left lateral ankle measures 1.3 cm x 0.8 cm x 0.3 cm. Wound underwent debridement as noted in clinical panel above. EpiFix graft #6 applied to wound bed at last visit. We will refrain from continued application of EpiFix graft at this time due to wound not progressing. Dakin's wet-to-dry dressing was applied today with Tubigrip compression stocking. They will change the dressingdaily. Will look to reapply Epifix at next visit. Lateral ankle wound demonstrates no reduction in size vs previous visit. Unna boot applied at last visit as ankle motion may be contributing factor of tension on wound. He was instructed to not get dressings wet Discussed continued diabetic diet to ensure proper glucose control. Recent A1c 6.4%. Discussed that this is a good standing for control of his diabetes and will aid in wound healing. Discussed with to aid in daily foot checks as her is blind. Discussed wearing shoe gear at all times and to never go barefoot. Socks include barefoot. They voiced understanding of this today. Recommend continued follow-up with PCP for continued diabetic management. Discussed adequate protein intake to continue to aid in wound healing. Also discussed Negrito supplementation to aid in wound healing. Discussed signs and symptoms with the pertaining to infection. Discussed if she notices increasing redness about the wound margin spreading up the leg, any purulent drainage from the wound site, increasing foul odor from the wound, or if he experiences fever greater than 101 degree, nausea, vomiting, chills that these are signs of progressing infection and he needs to report to the ED. They voiced understanding of this today. The following work up and care recommendations were made: Dressing: EpiFix, Adaptic touch, Steri-Strips, Unna boot. Leave dressings intactand Do not get wet. Wash: Do not get wet Tissue growth optimization: EpiFix Offload: Ensure anterior leg is not bumped and discussed no picking at skin sites. Vascular: DP and PT pulses palpable with adequate capillary fill time. However skin demonstrates trophic changes consistent with microvascular disease. Edema: No edema currently, has history of chronic venous stasis. Recommend continued compression stocking. Infection: No signs of infection. Pain: May take [id number] Tylenol extra strength for discomfort. Host factors: DM type II, chronic venous stasis, CHF, COPD, blindness I answered all the patient's questions. To return to the wound healing center in 1 week or call sooner if the patient has any questions or concerns. 07/11/23 0859 <Electronically signed by Alejandro Talbot DPM> Cosigner Signature (if applicable): CC: ~ Signed [facility] Work Phone: [phone] Progress note Author Alejandro Talbot [facility] June 27, 2023 8:33am Note Date/Time June 27, 2023 8 :16am [facility] [address] [place] [address] Progress Note - Wound Care 06/27/23 0816 MR#: [id number] Acct: [id number] Name: ARMIN TURCIOS Rep #:[id number] : 1950 73 From: Alejandro bar DPM PCP: Dr. Jessi Olguin MD Status:REG R Location: History of Present Illness Date of Service: 06/27/23 Chief Complaint: Left Leg Ulcer History of Wound: Mr. Turcios is a 72-year-old with PMHx of of diabetes mellitus type 2, venous insufficiency bilateral lower extremity, history of multiple ulcerations, HTN, HLD, COPD, A-fib, CHF. He presents back to the woundcare center today accompanied by his for nonhealing left lower extremity ulceration. states he has either bumped his leg on something or picked at some skin on the front of his leg creating a new wound. They state they have been following with Dr. Anderson in [place] as well as PCP Dr. Olguin. They stateoccasional use of mupirocin topical ointment but otherwise have not been applying dressings to the site. They state the wound has been present for a fewweeks and has not made much progress and thus they were referred to the wound care center for continued wound healing. He denies N/V/F/chills. He has no further complaints. Subjective Subjective Patient is a 73-year-old male who follows up to the wound care center today for a left lower extremity ulceration. His states she has left graft in place and kept unna boot dry. She does state that he does not keep feet elevated as much as he should. He denies constitutional symptoms today. Denies further complaints today. Objective Data Objective Data Vital Signs: Vital Signs Temp Pulse Resp BP O2 Del Method 97.1 F L 95 18 119/64 Room Air 06/27/23 08:04 06/27/23 08:04 06/27/23 08:04 06/27/23 08:04 06/27/23 08:04 Oxygen Delivery Method Room Air Weight: 114.015 kg Body Mass Index (BMI) 31.4 Physical Exam Const alert, oriented x3 and no apparent distress General Appearance: cooperative HEENT normocephalic Eyes General Eye: normal appearance of both eyes Neck General: normal visual inspection Lymph Lymphatic: no lymphadenopathy noted and no lymphedema noted Resp normal respiratory effort Cardio regular rate and regular rhythm Extremity normal capillary refill, no joint enlargement, no calf tenderness and no pedal edema Extremity Narrative: DP pulses palpable and PT pulses weakly palpable bilateral. CFT less than 3 seconds to the digits bilateral. Hair growth absent to digits of foot bilateral. Dermatological: Skin is thin and demonstrating trophic changes bilateral lower extremity. Skin is excessively dry with peeling/flaking consistent with diabetic autonomic neuropathy and microvascular disease. Ulceration to the anterior aspect overlying the tibial crest has healed, no signs of infection. Ulceration noted to the lateral ankle with mixed fibrogranular layer. No signs of infection. Musculoskeletal: Muscle strength 5 of 5 age-appropriate. Decreased ankle range of motion in dorsiflexion with the knee extended without pain or crepitus bilateral. Decreased range of motion of the first metatarsophalangeal joint without pain or crepitus bilateral. There is hammertoe deformity of lesser digits bilateral without pain to palpation. Skin no rashes or lesions noted, skin turgor normal and no jaundice Neuro moves all extremities Debridement Note Debridement Note Wound debrided: Left lateral ankle Laterality: Left Wound Grade/Stage: Miguel stage I Type of Debridement: Excisional debridement Anesthesia Used: 5% Lidocaine Gel Depth: Down to and including healthy tissue and in the subcutaneous layer Percentage of wound debrided: 100 Instrument Used: 5mm curette Tissue Removed: Fibrous, devitalized subcutaneous, biofilm, slough Severity: Fat Layer Exposed Amount of bleeding with debridement: Mild Bleeding Controlled with: Compression and gauze Patient tolerated procedure: Patient tolerated procedure well Post-Debridement Measurements and Additional Note: Post-Debridement Measurements/Treatment WC - Nurse 1 - General Ulcer Assessment Start: 06/06/23 08:05 Freq: Status: Active Protocol: OLIVIA Activity Type Activity Date Activity User E-sign Co-sign Detail Recorded Client Recorded Date Recorded By Document 06/06/23 08:05 KW Desktop 06/06/23 08:08 KW Document 06/13/23 08:05 KW Desktop 06/13/23 08:06 KW Document 06/20/23 08:06 KW Desktop 06/20/23 08:15 KW Document 06/27/23 08:04 KW Desktop 06/27/23 08:10 KW 06/06/23 06/13/23 06/20/23 08:05 08:05 08:06 WC - Today's Visit Information Type of service Follow-up Visit Follow-up Visit Follow-up Visit (Physician/DOG TRAINER (Physician/DOG TRAINER (Physician/DOG TRAINER ) ) ) Arrival Mode Ambulatory,Cane Ambulatory Ambulatory Accompanied by Patient Identification Verified (Name & Yes Yes Yes ) Height and Weight Body Mass Index (BMI) 31.4 31.4 31.4 BMI Classification Obese Obese Obese Vital Signs Temperature (97.8 F-99.1 F) 96.5 F L 96.9 F L 97.4 F L Temperature Source Temporal Temporal Temporal Pulse Rate (60-100) 83 104 H Pulse Location Monitor Monitor Respiratory Rate (12-18) 18 18 18 Respiratory rate source Observation Observation Observation Oxygen Delivery Method Room Air Room Air Room Air Blood Pressure (90/60-120/80) 100/65 154/77 H 138/75 H Blood Pressure Mean (mm Hg) 76 102 96 Source Monitor Monitor Monitor Position Sitting Semi-Fowlers Sitting Blood Pressure Location Left Arm Left Forearm Left Forearm History Since Last Visit- (Skip if this is Patient's initial visit) Have you changed medications since your No No No last visit? Any new allergies or adverse reactions No No No Had a fall/change in ADL's that may No No No increase risk of falls Signs or symptoms of abuse and/or No No No neglect since last visit Have you been in the hospital since your No No No last visit? Has dressing in place as prescribed Yes Yes Yes Has compression in place as prescribed Yes Yes Yes Has offloadiing in place as prescribed No No No Experienced any changes in pain level or No No management Left Footwear Regular Shoe Regular Shoe Regular Shoe Right Footwear Regular Shoe Regular Shoe Regular Shoe Pain Scale: 0-10 Numeric Is Patient Pain Free? Yes Yes Yes 06/27/23 08:04 WC - Today's Visit Information Type of service Follow-up Visit (Physician/DOG TRAINER ) Arrival Mode Ambulatory,Cane Accompanied by Patient Identification Verified (Name & Yes ) Height and Weight Body Mass Index (BMI) 31.4 BMI Classification Obese Vital Signs Temperature (97.8 F-99.1 F) 97.1 F L Temperature Source Temporal Pulse Rate (60-100) 95 Pulse Location Monitor Respiratory Rate (12-18) 18 Respiratory rate source Observation Oxygen Delivery Method Room Air Blood Pressure (90/60-120/80) 119/64 Blood Pressure Mean (mm Hg) 82 Source Monitor Position Semi-Fowlers Blood Pressure Location Left Arm History Since Last Visit- (Skip if this is Patient's initial visit) Have you changed medications since your No last visit? Any new allergies or adverse reactions No Had a fall/change in ADL's that may No increase risk of falls Signs or symptoms of abuse and/or No neglect since last visit Have you been in the hospital since your No last visit? Has dressing in place as prescribed Yes Has compression in place as prescribed Yes Has offloadiing in place as prescribed No Experienced any changes in pain level or No management Left Footwear Regular Shoe Right Footwear Regular Shoe Pain Scale: 0-10 Numeric Is Patient Pain Free? Yes - Nurse 1 - General Ulcer Measurement Start: 06/06/23 08:05 Freq: Status: Active Protocol: Activity Type Activity Date Activity User E-sign Co-sign Detail Recorded Client Recorded Date Recorded By Document 06/06/23 08:05 KW Desktop 06/06/23 08:08 KW Document 06/13/23 08:05 KW Desktop 06/13/23 08:06 KW Document 06/20/23 08:06 KW Desktop 06/20/23 08:15 KW Document 06/27/23 08:04 KW Desktop 06/27/23 08:10 KW 06/06/23 06/13/23 06/20/23 08:05 08:05 08:06 Wound Center Nurse 1 #9 LT ANKLE -Current Size (cm) - Length 1.4 1.4 1.5 -Current Size (cm) - Width 0.9 0.6 0.7 -Current Size (cm) - Depth 0.2 0.2 0.2 -Total Square Cm 1.26 0.84 1.05 -Date of Last Picture (Recall this 06/20/23 field) -Photo Taken Yes -Exudate Amt Medium Medium Medium -Exudate Type Serosanguineous Serosanguineous Serosanguineous -Wound Margin Distinct, Distinct, Distinct, Outline Outline Outline Attached Attached Attached -Granulation Amt Small (1-33%) Medium (34-66%) Medium (34-66%) -Granulation Quality Red Red [place] -Necrosis Amt Medium (34-66%) Small (1-33%) Small (1-33%) -Necrotic Tissue Type Adherent Slough Adherent Slough Adherent Slough -Texture (Jada-wound Skin Appearance) Assessed Assessed Assessed -Moisture (Jada-wound Skin Appearance) Assessed,Dry/ Assessed Assessed Scaly -Color (Jada-wound Skin Appearance) Assessed Assessed Assessed -Temperature (Jada-wound Skin No Abnormality No Abnormality Appearance) (Pt Warm) (Pt Warm) -Ulcer Cleansing Soap and Water Soap and Water Soap and Water -Foul Odor after Cleansing -Anesthetic Used 5% Lidocaine 5% Lidocaine 5% Lidocaine Gel Gel Gel Left Calf (cm) 38.2 38 38.5 Left Ankle (cm) 22.1 21.7 21.3 06/27/23 08:04 Wound Center Nurse 1 #9 LT ANKLE -Current Size (cm) - Length 1.4 -Current Size (cm) - Width 1.1 -Current Size (cm) - Depth 0.1 -Total Square Cm 1.54 -Date of Last Picture (Recall this 06/27/23 field) -Photo Taken Yes -Exudate Amt Medium -Exudate Type Serosanguineous -Wound Margin Thickened -Granulation Amt Small (1-33%) -Granulation Quality [place] -Necrosis Amt Medium (34-66%) -Necrotic Tissue Type Adherent Slough -Texture (Jada-wound Skin Appearance) Assessed -Moisture (Jada-wound Skin Appearance) Assessed -Color (Jada-wound Skin Appearance) Assessed -Temperature (Jada-wound Skin No Abnormality Appearance) (Pt Warm) -Ulcer Cleansing Soap and Water -Foul Odor after Cleansing No -Anesthetic Used 5% Lidocaine Gel Left Calf (cm) 36.5 Left Ankle (cm) 22 WC - Nurse 2 - General Ulcer CM Notes Start: 06/06/23 08:05 Freq: Status: Active Protocol: Activity Type Activity Date Activity User E-sign Co-sign Detail Recorded Client Recorded Date Recorded By Document 06/06/23 09:21 PL Tablet 06/06/23 09:25 PL Document 06/13/23 08:35 PL Tablet 06/13/23 08:39 PL Document 06/20/23 08:37 PL Tablet 06/20/23 08:38 PL Edit Result 06/20/23 08:37 PL (1) Tablet 06/20/23 10:22 PL (1) #9 LT ANKLE - Expiration Date => 02/02/28 - Product Lot Number => [id number] - Percent Used => 100 06/06/23 06/13/23 06/20/23 09:21 08:35 08:37 Wound Center Nurse 2 #9 LT ANKLE -Time 08:30 08:30 08:20 -Correct Patient Yes Yes Yes -Correct Side, Site, Position Yes Yes Yes -Correct Procedure Yes Yes Yes -Procedure Performed Yes Yes Yes -Type of Procedure Debridement Debridement Debridement -Clinical Debridement Subcutaneous Subcutaneous Subcutaneous -Tissue Removed Subcutaneous Subcutaneous Subcutaneous -Post Debridement (cm) - Length 1.5 1.5 1.3 -Post Debridement (cm) - Width 0.9 0.9 0.8 -Post Debridement (cm) - Depth 0.2 0.2 0.2 -Total Square (Post) (cm) 1.35 1.35 1.04 -Area of Debridement (cm) - Length 1.5 1.5 1.3 -Area of Debridement (cm) - Width 0.9 0.9 0.8 -Total Square (Area) (cm) 1.35 1.35 1.04 -Tunneling No No -Undermining/Tunneling No No No -Circular Undermining No No No -Wound/Ulcer Outcome Not Healed Not Healed Not Healed -Ulcer Cleansing Rinsed/ Rinsed/ Wound Cleanser Irrigated with Irrigated with Saline Saline -Foul Odor after Cleansing No No -Bioengineered Tissue Yes Yes Yes -Type of Bioengineered Tissue Epifix 18mm Epifix 18mm Epifix 18mm Disc Disc Disc -Expiration Date 02/02/28 02/02/28 02/02/28 -Product Lot Number [id number] -Percent Used 100 100 100 -Bleeding Controlled with Pressure Pressure Pressure -Treatment Response Procedure Procedure Procedure Tolerated Well Tolerated Well Tolerated Well -Debridement - Subq, 1st 20sq cm No No No -Apply Skin Sub - 1st 25 sq cm - Legs 1 1 1 -Epifix 18mm Disc 3 3 3 Pain Scale: 0-10 Numeric Is Patient Pain Free? Yes Yes Yes - Nurse 3 - General Ulcer D/C NN Start: 06/06/23 08:05 Freq: Status: Active Protocol: Activity Type Activity Date Activity User E-sign Co-sign Detail Recorded Client Recorded Date Recorded By Document 06/06/23 08:38 KW [employer] 06/06/23 08:39 KW Document 06/13/23 08:36 [employer] 06/13/23 08:37 KW Document 06/20/23 08:34 KW [employer] 06/20/23 08:35 KW 06/06/23 06/13/23 06/20/23 08:38 08:36 08:34 Wound Care Center Nurse 3 #9 LT ANKLE -Ulcer Cleansing Rinsed/ Irrigated with Saline -Primary Dressing Covered/Secured with Dry Gauze & Dry Gauze & Dry Gauze & Roll Gauze, Roll Gauze, Roll Gauze, Secured with Secured with Secured with Tape Tape Tape Left -Multi-Layered Wrap Application Unna Boot - Left ($) -Tubular Bandage Single Layer -Size of Tubigrip Used Size D -Size D ($) 1 Pain Scale: 0-10 Numeric Is Patient Pain Free? Yes Yes Yes - Visit Discharge Discharge Condition Stable Stable Stable Ambulatory Status Ambulatory,Cane Ambulatory,Cane Ambulatory,Cane Transportation Private Auto Private Auto Private Auto Medication Reconcilliation completed & No No No provided to patient/care provider Clinical Summary of Care Provided Yes Yes Yes Assessment/Plan Assessment/Plan (1) Non-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: CODE(S): L97.322 - Non-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 layerexposed (2) Delayed wound healing: CODE(S): T14.8XXD - Other injury of unspecified body region, subsequent encounter (3) 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 layer exposed: CODE(S): L97.222 - 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 layer exposed (4) Venous insufficiency of both lower extremities: CODE(S): I87.2 - Venous insufficiency (chronic) (peripheral) (5) Chronic diastolic (congestive) heart failure: CODE(S): I50.32 - Chronic diastolic (congestive) heart failure (6) COPD (chronic obstructive pulmonary disease): CODE(S): J44.9 - Chronic obstructive pulmonary disease, unspecified (7) DM type 2 (diabetes mellitus, type 2): CODE(S): E11.9 - Type 2 diabetes mellitus without complications QUALIFIERS: Diabetes mellitus complication status: with other specified complication 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: with 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 use Qualified Code(s): E11.69 - Type 2 diabetes mellitus with other specified complication; Z79.4 - long-term (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 Patient had followed Dr. Anderson. Ulceration to the left anterior lower extremity remains healed. No signs of infection. Left lateral ankle measures 1.3 cm x 0.8 cm x 0.3 cm. Wound underwent debridement as noted in clinical panel above. EpiFix graft #6 applied to wound bed. Site dressed with Adaptic touch and anchored with Steri-Strips then dressed with dry sterile dressing. Unna boot compression wrap applied to lower extremity. He was instructed to not get the dressing wet. Lateral ankle wound demonstrates slight reduction in size vs previous visit. Unna boot applied today as ankle motion may be contributing factor of tension onwound. He was instructed to not get dressings wet Discussed continued diabetic diet to ensure proper glucose control. Recent A1c 6.4%. Discussed that this is a good standing for control of his diabetes and will aid in wound healing. Discussed with to aid in daily foot checks as her is blind. Discussed wearing shoe gear at all times and to never go barefoot. Socks include barefoot. They voiced understanding of this today. Recommend continued follow-up with PCP for continued diabetic management. Discussed adequate protein intake to continue to aid in wound healing. Also discussed Negrito supplementation to aid in wound healing. Discussed signs and symptoms with the pertaining to infection. Discussed if she notices increasing redness about the wound margin spreading up the leg, any purulent drainage from the wound site, increasing foul odor from the wound, or if he experiences fever greater than 101 degree, nausea, vomiting, chills that these are signs of progressing infection and he needs to report to the ED. They voiced understanding of this today. The following work up and care recommendations were made: Dressing: EpiFix, Adaptic touch, Steri-Strips, Unna boot. Leave dressings intactand Do not get wet. Wash: Do not get wet Tissue growth optimization: EpiFix Offload: Ensure anterior leg is not bumped and discussed no picking at skin sites. Vascular: DP and PT pulses palpable with adequate capillary fill time. However skin demonstrates trophic changes consistent with microvascular disease. Edema: No edema currently, has history of chronic venous stasis. Recommend continued compression stocking. Infection: No signs of infection. Pain: May take [id number] Tylenol extra strength for discomfort. Host factors: DM type II, chronic venous stasis, CHF, COPD, blindness He will return in 1 week for nurse visit for Unna boot change. I answered all the patient's questions. To return to the wound healing center in 2 weeks or call sooner if the patient has any questions or concerns. 06/27/2333 <Electronically signed by Alejandro Talbot DPM> Cosigner Signature (if applicable): CC: ~ Signed [facility] [place] Work Phone: [phone] Progress note Author Alejandro Talbot [facility] [place] June 20, 2023 8:39am Note Date/Time June 20, 2023 8 :39am [facility] [address] [place] [address] Progress Note - Wound Care 06/20/2332 MR#: [id number] Acct: [id number] Name: ARMIN TURCIOS Rep #:[id number] : 1950 73 From: Alejandro bar DPM PCP: Dr. Jessi Olguin MD Status:REG RCR Location: History of Present Illness Date of Service: 06/20/23 Chief Complaint: Left Leg Ulcer History of Wound: Mr. Turcios is a 72-year-old with PMHx of of diabetes mellitus type 2, venous insufficiency bilateral lower extremity, history of multiple ulcerations, HTN, HLD, COPD, A-fib, CHF. He presents back to the woundcare center today accompanied by his for nonhealing left lower extremity ulceration. states he has either bumped his leg on something or picked at some skin on the front of his leg creating a new wound. They state they have been following with Dr. Anderson in [place] as well as PCP Dr. Olguin. They stateoccasional use of mupirocin topical ointment but otherwise have not been applying dressings to the site. They state the wound has been present for a fewweeks and has not made much progress and thus they were referred to the wound care center for continued wound healing. He denies N/V/F/chills. He has no further complaints. Subjective Subjective Patient is a 73-year-old male who follows up to the wound care center today for a left lower extremity ulceration. His states she has left graft in place and is only changing outer dressings as needed. She does state that he does notkeep feet elevated as much as he should. He is disappointed today as he is stillreeling from the [place] playoff loss. He denies constitutional symptoms today. Denies further complaints today. Objective Data Objective Data Vital Signs: Vital Signs Temp Pulse Resp BP O2 Del Method 97.4 F L 104 H 18 138/75 H Room Air 06/20/23 08:06 06/20/23 08:06 06/20/23 08:06 06/20/23 08:06 06/20/23 08:06 Oxygen Delivery Method Room Air Weight: 114.015 kg Body Mass Index (BMI) 31.4 Physical Exam Const alert, oriented x3 and no apparent distress General Appearance: cooperative HEENT normocephalic Eyes General Eye: normal appearance of both eyes Neck General: normal visual inspection Lymph Lymphatic: no lymphadenopathy noted and no lymphedema noted Resp normal respiratory effort Cardio regular rate and regular rhythm Extremity normal capillary refill, no joint enlargement, no calf tenderness and no pedal edema Extremity Narrative: DP pulses palpable and PT pulses weakly palpable bilateral. CFT less than 3 seconds to the digits bilateral. Hair growth absent to digits of foot bilateral. Dermatological: Skin is thin and demonstrating trophic changes bilateral lower extremity. Skin is excessively dry with peeling/flaking consistent with diabetic autonomic neuropathy and microvascular disease. Ulceration to the anterior aspect overlying the tibial crest has healed, no signs of infection. Ulceration noted to the lateral ankle with mixed fibrogranular layer. No signs of infection. Musculoskeletal: Muscle strength 5 of 5 age-appropriate. Decreased ankle range of motion in dorsiflexion with the knee extended without pain or crepitus bilateral. Decreased range of motion of the first metatarsophalangeal joint without pain or crepitus bilateral. There is hammertoe deformity of lesser digits bilateral without pain to palpation. Skin no rashes or lesions noted, skin turgor normal and no jaundice Neuro moves all extremities Debridement Note Debridement Note Wound debrided: Left lateral ankle Laterality: Left Wound Grade/Stage: Miguel stage I Type of Debridement: Excisional debridement Anesthesia Used: 5% Lidocaine Gel Depth: Down to and including healthy tissue and in the subcutaneous layer Percentage of wound debrided: 100 Instrument Used: 5mm curette Tissue Removed: Fibrous, devitalized subcutaneous, biofilm, slough Severity: Fat Layer Exposed Amount of bleeding with debridement: Mild Bleeding Controlled with: Compression and gauze Patient tolerated procedure: Patient tolerated procedure well Post-Debridement Measurements and Additional Note: Post-Debridement Measurements/Treatment - Nurse 1 - General Ulcer Assessment Start: 06/06/23 08:05 Freq: Status: Active Protocol: OLIVIA Activity Type Activity Date Activity User E-sign Co-sign Detail Recorded Client Recorded Date Recorded By Document 06/06/23 08:05 KW Desktop 06/06/23 08:08 KW Document 06/13/23 08:05 KW Desktop 06/13/23 08:06 KW Document 06/20/23 08:06 KW Desktop 06/20/23 08:15 KW 06/06/23 06/13/23 06/20/23 08:05 08:05 08:06 - Today's Visit Information Type of service Follow-up Visit Follow-up Visit Follow-up Visit (Physician/DOG TRAINER (Physician/DOG TRAINER (Physician/DOG TRAINER ) ) ) Arrival Mode Ambulatory,Cane Ambulatory Ambulatory Accompanied by Patient Identification Verified (Name & Yes Yes Yes ) Height and Weight Body Mass Index (BMI) 31.4 31.4 31.4 BMI Classification Obese Obese Obese Vital Signs Temperature (97.8 F-99.1 F) 96.5 F L 96.9 F L 97.4 F L Temperature Source Temporal Temporal Temporal Pulse Rate (60-100) 83 104 H Pulse Location Monitor Monitor Respiratory Rate (12-18) 18 18 18 Respiratory rate source Observation Observation Observation Oxygen Delivery Method Room Air Room Air Room Air Blood Pressure (90/60-120/80) 100/65 154/77 H 138/75 H Blood Pressure Mean (mm Hg) 76 102 96 Source Monitor Monitor Monitor Position Sitting Semi-Fowlers Sitting Blood Pressure Location Left Arm Left Forearm Left Forearm History Since Last Visit- (Skip if this is Patient's initial visit) Have you changed medications since your No No No last visit? Any new allergies or adverse reactions No No No Had a fall/change in ADL's that may No No No increase risk of falls Signs or symptoms of abuse and/or No No No neglect since last visit Have you been in the hospital since your No No No last visit? Has dressing in place as prescribed Yes Yes Yes Has compression in place as prescribed Yes Yes Yes Has offloadiing in place as prescribed No No No Experienced any changes in pain level or No No management Left Footwear Regular Shoe Regular Shoe Regular Shoe Right Footwear Regular Shoe Regular Shoe Regular Shoe Pain Scale: 0-10 Numeric Is Patient Pain Free? Yes Yes Yes WC - Nurse 1 - General Ulcer Measurement Start: 06/06/23 08:05 Freq: Status: Active Protocol: Activity Type Activity Date Activity User E-sign Co-sign Detail Recorded Client Recorded Date Recorded By Document 06/06/23 08:05 KW Desktop 06/06/23 08:08 KW Document 06/13/23 08:05 KW Desktop 06/13/23 08:06 KW Document 06/20/23 08:06 KW Desktop 06/20/23 08:15 KW 06/06/23 06/13/23 06/20/23 08:05 08:05 08:06 Wound Center Nurse 1 #9 LT ANKLE -Current Size (cm) - Length 1.4 1.4 1.5 -Current Size (cm) - Width 0.9 0.6 0.7 -Current Size (cm) - Depth 0.2 0.2 0.2 -Total Square Cm 1.26 0.84 1.05 -Date of Last Picture (Recall this 06/20/23 field) -Photo Taken Yes -Exudate Amt Medium Medium Medium -Exudate Type Serosanguineous Serosanguineous Serosanguineous -Wound Margin Distinct, Distinct, Distinct, Outline Outline Outline Attached Attached Attached -Granulation Amt Small (1-33%) Medium (34-66%) Medium (34-66%) -Granulation Quality Red Red [place] -Necrosis Amt Medium (34-66%) Small (1-33%) Small (1-33%) -Necrotic Tissue Type Adherent Slough Adherent Slough Adherent Slough -Texture (Jada-wound Skin Appearance) Assessed Assessed Assessed -Moisture (Jada-wound Skin Appearance) Assessed,Dry/ Assessed Assessed Scaly -Color (Jada-wound Skin Appearance) Assessed Assessed Assessed -Temperature (Jada-wound Skin No Abnormality No Abnormality Appearance) (Pt Warm) (Pt Warm) -Ulcer Cleansing Soap and Water Soap and Water Soap and Water -Anesthetic Used 5% Lidocaine 5% Lidocaine 5% Lidocaine Gel Gel Gel Left Calf (cm) 38.2 38 38.5 Left Ankle (cm) 22.1 21.7 21.3 WC - Nurse 2 - General Ulcer CM Notes Start: 06/06/23 08:05 Freq: Status: Active Protocol: Activity Type Activity Date Activity User E-sign Co-sign Detail Recorded Client Recorded Date Recorded By Document 06/06/23 09:21 PL Tablet 06/06/23 09:25 PL Document 06/13/23 08:35 PL Tablet 06/13/23 08:39 PL 06/06/23 06/13/23 09:21 08:35 Wound Center Nurse 2 #9 LT ANKLE -Time 08:30 08:30 -Correct Patient Yes Yes -Correct Side, Site, Position Yes Yes -Correct Procedure Yes Yes -Procedure Performed Yes Yes -Type of Procedure Debridement Debridement -Clinical Debridement Subcutaneous Subcutaneous -Tissue Removed Subcutaneous Subcutaneous -Post Debridement (cm) - Length 1.5 1.5 -Post Debridement (cm) - Width 0.9 0.9 -Post Debridement (cm) - Depth 0.2 0.2 -Total Square (Post) (cm) 1.35 1.35 -Area of Debridement (cm) - Length 1.5 1.5 -Area of Debridement (cm) - Width 0.9 0.9 -Total Square (Area) (cm) 1.35 1.35 -Tunneling No -Undermining/Tunneling No No -Circular Undermining No No -Wound/Ulcer Outcome Not Healed Not Healed -Ulcer Cleansing Rinsed/ Rinsed/ Irrigated with Irrigated with Saline Saline -Foul Odor after Cleansing No No -Bioengineered Tissue Yes Yes -Type of Bioengineered Tissue Epifix 18mm Epifix 18mm Disc Disc -Expiration Date 02/02/28 02/02/28 -Product Lot Number [id number] -Percent Used 100 100 -Bleeding Controlled with Pressure Pressure -Treatment Response Procedure Procedure Tolerated Well Tolerated Well -Debridement - Subq, 1st 20sq cm No No -Apply Skin Sub - 1st 25 sq cm - Legs 1 1 -Epifix 18mm Disc 3 3 Pain Scale: 0-10 Numeric Is Patient Pain Free? Yes Yes - Nurse 3 - General Ulcer D/C NN Start: 06/06/23 08:05 Freq: Status: Active Protocol: Activity Type Activity Date Activity User E-sign Co-sign Detail Recorded Client Recorded Date Recorded By Document 06/06/23 08:38 KW Desktop 06/06/23 08:39 KW Document 06/13/23 08:36 KW Desktop 06/13/23 08:37 KW 06/06/23 06/13/23 08:38 08:36 Wound Care Center Nurse 3 #9 LT ANKLE -Ulcer Cleansing Rinsed/ Irrigated with Saline -Primary Dressing Covered/Secured with Dry Gauze & Dry Gauze & Roll Gauze, Roll Gauze, Secured with Secured with Tape Tape Left -Tubular Bandage Single Layer -Size of Tubigrip Used Size D -Size D ($) 1 Pain Scale: 0-10 Numeric Is Patient Pain Free? Yes Yes - Visit Discharge Discharge Condition Stable Stable Ambulatory Status Ambulatory,Cane Ambulatory,Cane Transportation Private Auto Private Auto Medication Reconcilliation completed & No No provided to patient/care provider Clinical Summary of Care Provided Yes Yes Assessment/Plan Assessment/Plan (1) Non-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: CODE(S): L97.322 - Non-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 layerexposed (2) Delayed wound healing: CODE(S): T14.8XXD - Other injury of unspecified body region, subsequent encounter (3) 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 layer exposed: CODE(S): L97.222 - 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 layer exposed (4) Venous insufficiency of both lower extremities: CODE(S): I87.2 - Venous insufficiency (chronic) (peripheral) (5) Chronic diastolic (congestive) heart failure: CODE(S): I50.32 - Chronic diastolic (congestive) heart failure (6) COPD (chronic obstructive pulmonary disease): CODE(S): J44.9 - Chronic obstructive pulmonary disease, unspecified (7) DM type 2 (diabetes mellitus, type 2): CODE(S): E11.9 - Type 2 diabetes mellitus without complications QUALIFIERS: 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: with 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 use Diabetes mellitus complication status: with other specified complication Qualified Code(s): E11.69 - Type 2 diabetes mellitus with other specified complication; Z79.4 - long-term (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 Patient had followed Dr. Anderson. Ulceration to the left anterior lower extremity remains healed. No signs of infection. Left lateral ankle measures 1.3 cm x 0.8 cm x 0.2 cm. Wound underwent debridement as noted in clinical panel above. EpiFix graft #5 applied to wound bed. Site dressed with Adaptic touch and anchored with Steri-Strips then dressed with dry sterile dressing. He was instructed to not get the dressing wet. They are to change outer layer as needed. Lateral ankle wound demonstrates slight reduction in size vs previous visit. Unna boot applied today as ankle motion may be contributing factor of tension onwound. He was instructed to not get dressings wet Discussed continued diabetic diet to ensure proper glucose control. Recent A1c 6.4%. Discussed that this is a good standing for control of his diabetes and will aid in wound healing. Discussed with to aid in daily foot checks as her is blind. Discussed wearing shoe gear at all times and to never go barefoot. Socks include barefoot. They voiced understanding of this today. Recommend continued follow-up with PCP for continued diabetic management. Discussed adequate protein intake to continue to aid in wound healing. Also discussed Negrito supplementation to aid in wound healing. Discussed signs and symptoms with the pertaining to infection. Discussed if she notices increasing redness about the wound margin spreading up the leg, any purulent drainage from the wound site, increasing foul odor from the wound, or if he experiences fever greater than 101 degree, nausea, vomiting, chills that these are signs of progressing infection and he needs to report to the ED. They voiced understanding of this today. The following work up and care recommendations were made: Dressing: EpiFix, Adaptic touch, Steri-Strips, Unna boot. Leave dressings intactand Do not get wet. Wash: Do not get wet Tissue growth optimization: EpiFix Offload: Ensure anterior leg is not bumped and discussed no picking at skin sites. Vascular: DP and PT pulses palpable with adequate capillary fill time. However skin demonstrates trophic changes consistent with microvascular disease. Edema: No edema currently, has history of chronic venous stasis. Recommend continued compression stocking. Infection: No signs of infection. Pain: May take [id number] Tylenol extra strength for discomfort. Host factors: DM type II, chronic venous stasis, CHF, COPD, blindness I answered all the patient's questions. To return to the wound healing center in 1 week or call sooner if the patient has any questions or concerns. 06/20/23 0839 <Electronically signed by Alejandro Talbot DPM> Cosigner Signature (if applicable): CC: ~ Signed [facility] [place] Work Phone: [phone] Progress note Author Alejandro Talbot [facility] June 13, 2023 8:51am Note Date/Time June 13, 2023 8 :23am [facility] [address] [place] [address] Progress Note - Wound Care 06/13/23 0823 MR#: [id number] Acct: [id number] Name: ARMIN TURCIOS Rep #:[id number] : [id number] 73 From: Alejandro bar DPM PCP: Dr. Jessi Olguin MD Status:REG R Location: History of Present Illness Date of Service: 06/13/23 Chief Complaint: Left Leg Ulcer History of Wound: Mr. Turcios is a 72-year-old with PMHx of of diabetes mellitus type 2, venous insufficiency bilateral lower extremity, history of multiple ulcerations, HTN, HLD, COPD, A-fib, CHF. He presents back to the woundcare center today accompanied by his for nonhealing left lower extremity ulceration. states he has either bumped his leg on something or picked at some skin on the front of his leg creating a new wound. They state they have been following with Dr. Anderson in [place] as well as PCP Dr. Olguin. They stateoccasional use of mupirocin topical ointment but otherwise have not been applying dressings to the site. They state the wound has been present for a fewweeks and has not made much progress and thus they were referred to the wound care center for continued wound healing. He denies N/V/F/chills. He has no further complaints. Subjective Subjective Patient is a 73-year-old male who follows up to the wound care center today for a left lower extremity ulceration. His states she has left graft in place and is only changing outer dressings as needed. She does state that he does notkeep feet elevated as much as he should. He denies constitutional symptoms today. Denies further complaints today. Objective Data Objective Data Vital Signs: Vital Signs Temp Pulse Resp BP O2 Del Method 96.9 F L 83 18 154/77 H Room Air 06/13/23 08:05 06/13/23 08:05 06/13/23 08:05 06/13/23 08:05 06/13/23 08:05 Oxygen Delivery Method Room Air Weight: 114.015 kg Body Mass Index (BMI) 31.4 Physical Exam Const alert, oriented x3 and no apparent distress General Appearance: cooperative HEENT normocephalic Eyes General Eye: normal appearance of both eyes Neck General: normal visual inspection Lymph Lymphatic: no lymphadenopathy noted and no lymphedema noted Resp normal respiratory effort Cardio regular rate and regular rhythm Extremity normal capillary refill, no joint enlargement, no calf tenderness and no pedal edema Extremity Narrative: DP pulses palpable and PT pulses weakly palpable bilateral. CFT less than 3 seconds to the digits bilateral. Hair growth absent to digits of foot bilateral. Dermatological: Skin is thin and demonstrating trophic changes bilateral lower extremity. Skin is excessively dry with peeling/flaking consistent with diabetic autonomic neuropathy and microvascular disease. Ulceration to the anterior aspect overlying the tibial crest has healed, no signs of infection. Ulceration noted to the lateral ankle with mixed fibrogranular layer. No signs of infection. Musculoskeletal: Muscle strength 5 of 5 age-appropriate. Decreased ankle range of motion in dorsiflexion with the knee extended without pain or crepitus bilateral. Decreased range of motion of the first metatarsophalangeal joint without pain or crepitus bilateral. There is hammertoe deformity of lesser digits bilateral without pain to palpation. Skin no rashes or lesions noted, skin turgor normal and no jaundice Neuro moves all extremities Debridement Note Debridement Note Wound debrided: Left lateral ankle Laterality: Left Wound Grade/Stage: Miguel stage I Type of Debridement: Excisional debridement Anesthesia Used: 5% Lidocaine Gel Depth: Down to and including healthy tissue and in the subcutaneous layer Percentage of wound debrided: 100 Instrument Used: 5mm curette Tissue Removed: Fibrous, devitalized subcutaneous, biofilm, slough Severity: Fat Layer Exposed Amount of bleeding with debridement: Mild Bleeding Controlled with: Compression and gauze Patient tolerated procedure: Patient tolerated procedure well Post-Debridement Measurements and Additional Note: Post-Debridement Measurements/Treatment - Nurse 1 - General Ulcer Assessment Start: 06/06/23 08:05 Freq: Status: Active Protocol: OLIVIA Activity Type Activity Date Activity User E-sign Co-sign Detail Recorded Client Recorded Date Recorded By Document 06/06/23 08:05 KW Desktop 06/06/23 08:08 KW Document 06/13/23 08:05 KW Desktop 06/13/23 08:06 KW 06/06/23 06/13/23 08:05 08:05 - Today's Visit Information Type of service Follow-up Visit Follow-up Visit (Physician/DOG TRAINER (Physician/DOG TRAINER ) ) Arrival Mode Ambulatory,Cane Ambulatory Accompanied by Patient Identification Verified (Name & Yes Yes ) Height and Weight Body Mass Index (BMI) 31.4 31.4 BMI Classification Obese Obese Vital Signs Temperature (97.8 F-99.1 F) 96.5 F L 96.9 F L Temperature Source Temporal Temporal Pulse Rate (60-100) 83 Pulse Location Monitor Respiratory Rate (12-18) 18 18 Respiratory rate source Observation Observation Oxygen Delivery Method Room Air Room Air Blood Pressure (90/60-120/80) 100/65 154/77 H Blood Pressure Mean (mm Hg) 76 102 Source Monitor Monitor Position Sitting Semi-Fowlers Blood Pressure Location Left Arm Left Forearm History Since Last Visit- (Skip if this is Patient's initial visit) Have you changed medications since your No No last visit? Any new allergies or adverse reactions No No Had a fall/change in ADL's that may No No increase risk of falls Signs or symptoms of abuse and/or No No neglect since last visit Have you been in the hospital since your No No last visit? Has dressing in place as prescribed Yes Yes Has compression in place as prescribed Yes Yes Has offloadiing in place as prescribed No No Experienced any changes in pain level or No management Left Footwear Regular Shoe Regular Shoe Right Footwear Regular Shoe Regular Shoe Pain Scale: 0-10 Numeric Is Patient Pain Free? Yes Yes WC - Nurse 1 - General Ulcer Measurement Start: 06/06/23 08:05 Freq: Status: Active Protocol: Activity Type Activity Date Activity User E-sign Co-sign Detail Recorded Client Recorded Date Recorded By Document 06/06/23 08:05 KW Desktop 06/06/23 08:08 KW Document 06/13/23 08:05 KW Desktop 06/13/23 08:06 KW 06/06/23 06/13/23 08:05 08:05 Wound Center Nurse 1 #9 LT ANKLE -Current Size (cm) - Length 1.4 1.4 -Current Size (cm) - Width 0.9 0.6 -Current Size (cm) - Depth 0.2 0.2 -Total Square Cm 1.26 0.84 -Exudate Amt Medium Medium -Exudate Type Serosanguineous Serosanguineous -Wound Margin Distinct, Distinct, Outline Outline Attached Attached -Granulation Amt Small (1-33%) Medium (34-66%) -Granulation Quality Red Red -Necrosis Amt Medium (34-66%) Small (1-33%) -Necrotic Tissue Type Adherent Slough Adherent Slough -Texture (Jada-wound Skin Appearance) Assessed Assessed -Moisture (Jada-wound Skin Appearance) Assessed,Dry/ Assessed Scaly -Color (Jada-wound Skin Appearance) Assessed Assessed -Temperature (Jada-wound Skin No Abnormality Appearance) (Pt Warm) -Ulcer Cleansing Soap and Water Soap and Water -Anesthetic Used 5% Lidocaine 5% Lidocaine Gel Gel Left Calf (cm) 38.2 38 Left Ankle (cm) 22.1 21.7 WC - Nurse 2 - General Ulcer CM Notes Start: 06/06/23 08:05 Freq: Status: Active Protocol: Activity Type Activity Date Activity User E-sign Co-sign Detail Recorded Client Recorded Date Recorded By Document 06/06/23 09:21 PL Tablet 06/06/23 09:25 PL 06/06/23 09:21 Wound Center Nurse 2 #9 LT ANKLE -Time 08:30 -Correct Patient Yes -Correct Side, Site, Position Yes -Correct Procedure Yes -Procedure Performed Yes -Type of Procedure Debridement -Clinical Debridement Subcutaneous -Tissue Removed Subcutaneous -Post Debridement (cm) - Length 1.5 -Post Debridement (cm) - Width 0.9 -Post Debridement (cm) - Depth 0.2 -Total Square (Post) (cm) 1.35 -Area of Debridement (cm) - Length 1.5 -Area of Debridement (cm) - Width 0.9 -Total Square (Area) (cm) 1.35 -Undermining/Tunneling No -Circular Undermining No -Wound/Ulcer Outcome Not Healed -Ulcer Cleansing Rinsed/ Irrigated with Saline -Foul Odor after Cleansing No -Bioengineered Tissue Yes -Type of Bioengineered Tissue Epifix 18mm Disc -Expiration Date 02/02/28 -Product Lot Number [id number] -Percent Used 100 -Bleeding Controlled with Pressure -Treatment Response Procedure Tolerated Well -Debridement - Subq, 1st 20sq cm No -Apply Skin Sub - 1st 25 sq cm - Legs 1 -Epifix 18mm Disc 3 Pain Scale: 0-10 Numeric Is Patient Pain Free? Yes - Nurse 3 - General Ulcer D/C NN Start: 06/06/23 08:05 Freq: Status: Active Protocol: Activity Type Activity Date Activity User E-sign Co-sign Detail Recorded Client Recorded Date Recorded By Document 06/06/23 08:38 KW Desktop 06/06/23 08:39 KW 06/06/23 08:38 Wound Care Center Nurse 3 #9 LT ANKLE -Ulcer Cleansing Rinsed/ Irrigated with Saline -Primary Dressing Covered/Secured with Dry Gauze & Roll Gauze, Secured with Tape Pain Scale: 0-10 Numeric Is Patient Pain Free? Yes WC - Visit Discharge Discharge Condition Stable Ambulatory Status Ambulatory,Cane Transportation Private Auto Medication Reconcilliation completed & No provided to patient/care provider Clinical Summary of Care Provided Yes Assessment/Plan Assessment/Plan (1) Non-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: CODE(S): L97.322 - Non-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 layerexposed (2) Delayed wound healing: CODE(S): T14.8XXD - Other injury of unspecified body region, subsequent encounter (3) 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 layer exposed: CODE(S): L97.222 - 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 layer exposed (4) Venous insufficiency of both lower extremities: CODE(S): I87.2 - Venous insufficiency (chronic) (peripheral) (5) Chronic diastolic (congestive) heart failure: CODE(S): I50.32 - Chronic diastolic (congestive) heart failure (6) COPD (chronic obstructive pulmonary disease): CODE(S): J44.9 - Chronic obstructive pulmonary disease, unspecified (7) DM type 2 (diabetes mellitus, type 2): CODE(S): E11.9 - Type 2 diabetes mellitus without complications QUALIFIERS: Diabetes mellitus complication status: with other specified complication 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: with longterm use Qualified Code(s): E11.69 - Type 2 diabetes mellitus with other specified complication; Z79.4 - long-term (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 Patient had followed Dr. Anderson. Ulceration to the left anterior lower extremity remains healed. No signs of infection. Left lateral ankle measures 1.5 cm x 0.9 cm x 0.2 cm. Wound underwent debridement as noted in clinical panel above. EpiFix graft #4 applied to wound bed. Site dressed with Adaptic touch and anchored with Steri-Strips then dressed with dry sterile dressing. He was instructed to not get the dressing wet. They are to change outer layer as needed. Lateral ankle wound demonstrates no reduction in size vs previous visit. Will look to apply 3M compression wrap vs unna boot at next visit as ankle motion may be contributing factor of tension on wound. Discussed continued diabetic diet to ensure proper glucose control. Recent A1c 6.4%. Discussed that this is a good standing for control of his diabetes and will aid in wound healing. Discussed with to aid in daily foot checks as her is blind. Discussed wearing shoe gear at all times and to never go barefoot. Socks include barefoot. They voiced understanding of this today. Recommend continued follow-up with PCP for continued diabetic management. Discussed adequate protein intake to continue to aid in wound healing. Also discussed Negrito supplementation to aid in wound healing. Discussed signs and symptoms with the pertaining to infection. Discussed if she notices increasing redness about the wound margin spreading up the leg, any purulent drainage from the wound site, increasing foul odor from the wound, or if he experiences fever greater than 101 degree, nausea, vomiting, chills that these are signs of progressing infection and he needs to report to the ED. They voiced understanding of this today. The following work up and care recommendations were made: Dressing: EpiFix, Adaptic touch, Steri-Strips, dry sterile dressing. Change outer dressing as needed Wash: Do not get wet Tissue growth optimization: EpiFix Offload: Ensure anterior leg is not bumped and discussed no picking at skin sites. Vascular: DP and PT pulses palpable with adequate capillary fill time. However skin demonstrates trophic changes consistent with microvascular disease. Edema: No edema currently, has history of chronic venous stasis. Recommend continued compression stocking. Infection: No signs of infection. Pain: May take [id number] Tylenol extra strength for discomfort. Host factors: DM type II, chronic venous stasis, CHF, COPD, blindness I answered all the patient's questions. To return to the wound healing center in 1 week or call sooner if the patient has any questions or concerns. 06/13/23 0851 <Electronically signed by Alejandro Talbot DPM> Cosigner Signature (if applicable): CC: ~ Signed [facility] Work Phone: 1([phone] 836-239901-04-2024 Progress note Author Alejandro Talbot [facility] June 06, 2023 8:47am Note Date/Time June 06, 2023 8: 28am [facility] [address] [place] [address] Progress Note - Wound Care 06/06/2321 MR#: [id number] Acct: [id number] Name: ARMIN TURCIOS Rep #:[id number] : 1950 73 From: Alejandro bar DPM PCP: Dr. Jessi Olguin MD Status:REG R Location: History of Present Illness Date of Service: 06/06/23 Chief Complaint: Left Leg Ulcer History of Wound: Mr. Turcios is a 72-year-old with PMHx of of diabetes mellitus type 2, venous insufficiency bilateral lower extremity, history of multiple ulcerations, HTN, HLD, COPD, A-fib, CHF. He presents back to the woundcare center today accompanied by his for nonhealing left lower extremity ulceration. states he has either bumped his leg on something or picked at some skin on the front of his leg creating a new wound. They state they have been following with Dr. Anderson in [place] as well as PCP Dr. Olguin. They stateoccasional use of mupirocin topical ointment but otherwise have not been applying dressings to the site. They state the wound has been present for a fewweeks and has not made much progress and thus they were referred to the wound care center for continued wound healing. He denies N/V/F/chills. He has no further complaints. Subjective Subjective Patient is a 73-year-old male who follows up to the wound care center today for a left lower extremity ulceration. His states she has left graft in place and is only changing outer dressings as needed. She does state that he does notkeep feet elevated as much as he should. He denies constitutional symptoms today. Denies further complaints today. Objective Data Objective Data Vital Signs: Vital Signs Temp Pulse Resp BP O2 Del Method 96.5 F L 95 18 100/65 Room Air 06/06/23 08:05 06/03/23 00:41 06/06/23 08:05 06/06/23 08:05 06/06/23 08:05 Oxygen Delivery Method Room Air Weight: 114.015 kg Body Mass Index (BMI) 31.4 Physical Exam Const alert, oriented x3 and no apparent distress General Appearance: cooperative HEENT normocephalic Eyes General Eye: normal appearance of both eyes Neck General: normal visual inspection Lymph Lymphatic: no lymphadenopathy noted and no lymphedema noted Resp normal respiratory effort Cardio regular rate and regular rhythm Extremity normal capillary refill, no joint enlargement, no calf tenderness and no pedal edema Extremity Narrative: DP pulses palpable and PT pulses weakly palpable bilateral. CFT less than 3 seconds to the digits bilateral. Hair growth absent to digits of foot bilateral. Dermatological: Skin is thin and demonstrating trophic changes bilateral lower extremity. Skin is excessively dry with peeling/flaking consistent with diabetic autonomic neuropathy and microvascular disease. Ulceration to the anterior aspect overlying the tibial crest has healed, no signs of infection. Ulceration noted to the lateral ankle with mixed fibrogranular layer. No signs of infection. Musculoskeletal: Muscle strength 5 of 5 age-appropriate. Decreased ankle range of motion in dorsiflexion with the knee extended without pain or crepitus bilateral. Decreased range of motion of the first metatarsophalangeal joint without pain or crepitus bilateral. There is hammertoe deformity of lesser digits bilateral without pain to palpation. Skin no rashes or lesions noted, skin turgor normal and no jaundice Neuro moves all extremities Debridement Note Debridement Note Wound debrided: Left lateral ankle Laterality: Left Wound Grade/Stage: Miguel stage I Type of Debridement: Excisional debridement Anesthesia Used: 5% Lidocaine Gel Depth: Down to and including healthy tissue and in the subcutaneous layer Percentage of wound debrided: 100 Instrument Used: 5mm curette Tissue Removed: Fibrous, devitalized subcutaneous, biofilm, slough Severity: Fat Layer Exposed Amount of bleeding with debridement: Mild Bleeding Controlled with: Compression and gauze Patient tolerated procedure: Patient tolerated procedure well Post-Debridement Measurements and Additional Note: Post-Debridement Measurements/Treatment BRYANNA - Nurse 1 - General Ulcer Assessment Start: 06/06/23 08:05 Freq: Status: Active Protocol: OLIVIA Activity Type Activity Date Activity User E-sign Co-sign Detail Recorded Client Recorded Date Recorded By Document 06/06/23 08:05 KW [employer] 06/06/23 08:08 KW 06/06/23 08:05 WC - Today's Visit Information Type of service Follow-up Visit (Physician/DOG TRAINER ) Arrival Mode Ambulatory,Cane Accompanied by Patient Identification Verified (Name & Yes ) Height and Weight Body Mass Index (BMI) 31.4 BMI Classification Obese Vital Signs Temperature (97.8 F-99.1 F) 96.5 F L Temperature Source Temporal Respiratory Rate (12-18) 18 Respiratory rate source Observation Oxygen Delivery Method Room Air Blood Pressure (90/60-120/80) 100/65 Blood Pressure Mean (mm Hg) 76 Source Monitor Position Sitting Blood Pressure Location Left Arm History Since Last Visit- (Skip if this is Patient's initial visit) Have you changed medications since your No last visit? Any new allergies or adverse reactions No Had a fall/change in ADL's that may No increase risk of falls Signs or symptoms of abuse and/or No neglect since last visit Have you been in the hospital since your No last visit? Has dressing in place as prescribed Yes Has compression in place as prescribed Yes Has offloadiing in place as prescribed No Experienced any changes in pain level or No management Left Footwear Regular Shoe Right Footwear Regular Shoe Pain Scale: 0-10 Numeric Is Patient Pain Free? Yes BRYANNA - Nurse 1 - General Ulcer Measurement Start: 06/06/23 08:05 Freq: Status: Active Protocol: Activity Type Activity Date Activity User E-sign Co-sign Detail Recorded Client Recorded Date Recorded By Document 06/06/23 08:05 [employer] 06/06/23 08:08 KW 06/06/23 08:05 Wound Center Nurse 1 #9 LT ANKLE -Current Size (cm) - Length 1.4 -Current Size (cm) - Width 0.9 -Current Size (cm) - Depth 0.2 -Total Square Cm 1.26 -Exudate Amt Medium -Exudate Type Serosanguineous -Wound Margin Distinct, Outline Attached -Granulation Amt Small (1-33%) -Granulation Quality Red -Necrosis Amt Medium (34-66%) -Necrotic Tissue Type Adherent Slough -Texture (Jada-wound Skin Appearance) Assessed -Moisture (Jada-wound Skin Appearance) Assessed,Dry/ Scaly -Color (Jada-wound Skin Appearance) Assessed -Ulcer Cleansing Soap and Water -Anesthetic Used 5% Lidocaine Gel Left Calf (cm) 38.2 Left Ankle (cm) 22.1 Assessment/Plan Assessment/Plan (1) Non-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: CODE(S): L97.322 - Non-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 layerexposed (2) Delayed wound healing: CODE(S): T14.8XXD - Other injury of unspecified body region, subsequent encounter (3) 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 layer exposed: CODE(S): L97.222 - 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 layer exposed (4) Venous insufficiency of both lower extremities: CODE(S): I87.2 - Venous insufficiency (chronic) (peripheral) (5) Chronic diastolic (congestive) heart failure: CODE(S): I50.32 - Chronic diastolic (congestive) heart failure (6) COPD (chronic obstructive pulmonary disease): CODE(S): J44.9 - Chronic obstructive pulmonary disease, unspecified (7) DM type 2 (diabetes mellitus, type 2): CODE(S): E11.9 - Type 2 diabetes mellitus without complications QUALIFIERS: Diabetes mellitus complication status: with other specified complication 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 Patient had followed Dr. Anderson. Ulceration to the left anterior lower extremity remains healed. No signs of infection. Left lateral ankle measures 1.5 cm x 0.9 cm x 0.2 cm. Wound underwent debridement as noted in clinical panel above. EpiFix graft #3 applied to wound bed. Site dressed with Adaptic touch and anchored with Steri-Strips then dressed with dry sterile dressing. He was instructed to not get the dressing wet. They are to change outer layer as needed. Lateral ankle wound has slight increase in size vs previous visit. Will look to apply 3M compression wrap at next visit. Discussed continued diabetic diet to ensure proper glucose control. Recent A1c 6.4%. Discussed that this is a good standing for control of his diabetes and will aid in wound healing. Discussed with to aid in daily foot checks as her is blind. Discussed wearing shoe gear at all times and to never go barefoot. Socks include barefoot. They voiced understanding of this today. Recommend continued follow-up with PCP for continued diabetic management. Discussed adequate protein intake to continue to aid in wound healing. Also discussed Negrito supplementation to aid in wound healing. Discussed signs and symptoms with the pertaining to infection. Discussed if she notices increasing redness about the wound margin spreading up the leg, any purulent drainage from the wound site, increasing foul odor from the wound, or if he experiences fever greater than 101 degree, nausea, vomiting, chills that these are signs of progressing infection and he needs to report to the ED. They voiced understanding of this today. The following work up and care recommendations were made: Dressing: EpiFix, Adaptic touch, Steri-Strips, dry sterile dressing. Change outer dressing as needed Wash: Do not get wet Tissue growth optimization: EpiFix Offload: Ensure anterior leg is not bumped and discussed no picking at skin sites. Vascular: DP and PT pulses palpable with adequate capillary fill time. However skin demonstrates trophic changes consistent with microvascular disease. Edema: No edema currently, has history of chronic venous stasis. Recommend continued compression stocking. Infection: No signs of infection. Pain: May take [id number] Tylenol extra strength for discomfort. Host factors: DM type II, chronic venous stasis, CHF, COPD, blindness I answered all the patient's questions. To return to the wound healing center in 1 week or call sooner if the patient has any questions or concerns. 06/06/23 2831 <Electronically signed by Alejandro Talbot DPM> Cosigner Signature (if applicable): CC: ~ Signed [facility] Work Phone: [phone] 409-743112-28-2023 Progress note Author Alejandro Talbot [facility] May 30, 2023 9:24am Note Date/Time May 30, 2023 8:24am [facility] [address] [place] [address] Progress Note - Wound Care 05/30/23822 MR#: [id number] Acct: [id number] Name: ARMIN TURCIOS Rep #:[id number] : 1950 73 From: Alejandro bar DPM PCP: Dr. Jessi Olguin MD Status:REG RCR Location: History of Present Illness Date of Service: 05/30/23 Chief Complaint: Left Leg Ulcer History of Wound: Mr. Turcios is a 72-year-old with PMHx of of diabetes mellitus type 2, venous insufficiency bilateral lower extremity, history of multiple ulcerations, HTN, HLD, COPD, A-fib, CHF. He presents back to the woundcare center today accompanied by his for nonhealing left lower extremity ulceration. states he has either bumped his leg on something or picked at some skin on the front of his leg creating a new wound. They state they have been following with Dr. Anderson in [place] as well as PCP Dr. Olguin. They stateoccasional use of mupirocin topical ointment but otherwise have not been applying dressings to the site. They state the wound has been present for a fewweeks and has not made much progress and thus they were referred to the wound care center for continued wound healing. He denies N/V/F/chills. He has no further complaints. Subjective Subjective Patient is a 73-year-old male who follows up to the wound care center today for a left lower extremity ulceration. His states she has left graft in place and is only changing outer dressings as needed. She does state that he does notkeep feet elevated as much as he should. He denies constitutional symptoms today. Denies further complaints today. Objective Data Objective Data Vital Signs: Vital Signs Temp Pulse Resp BP O2 Del Method 97.5 F L 95 18 139/78 H Room Air 05/30/23 08:04 05/30/23 08:04 05/30/23 08:04 05/30/23 08:04 05/30/23 08:04 Oxygen Delivery Method Room Air Weight: 114.015 kg Body Mass Index (BMI) 31.4 Physical Exam Const alert, oriented x3 and no apparent distress General Appearance: cooperative HEENT normocephalic Eyes General Eye: normal appearance of both eyes Neck General: normal visual inspection Lymph Lymphatic: no lymphadenopathy noted and no lymphedema noted Resp normal respiratory effort Cardio regular rate and regular rhythm Extremity normal capillary refill, no joint enlargement, no calf tenderness and no pedal edema Extremity Narrative: DP pulses palpable and PT pulses weakly palpable bilateral. CFT less than 3 seconds to the digits bilateral. Hair growth absent to digits of foot bilateral. Dermatological: Skin is thin and demonstrating trophic changes bilateral lower extremity. Skin is excessively dry with peeling/flaking consistent with diabetic autonomic neuropathy and microvascular disease. There is an ulcerationnoted to the anterior aspect overlying the tibial crest which has healed, no signs of infection. Ulceration noted to the lateral ankle with mixed fibrogranular layer. No signs of infection. Musculoskeletal: Muscle strength 5 of 5 age-appropriate. Decreased ankle range of motion in dorsiflexion with the knee extended without pain or crepitus bilateral. Decreased range of motion of the first metatarsophalangeal joint without pain or crepitus bilateral. There is hammertoe deformity of lesser digits bilateral without pain to palpation. Skin no rashes or lesions noted, skin turgor normal and no jaundice Neuro moves all extremities Debridement Note Debridement Note Wound debrided: Left lateral ankle Laterality: Left Wound Grade/Stage: Miguel stage I Type of Debridement: Excisional debridement Anesthesia Used: 5% Lidocaine Gel Depth: Down to and including healthy tissue and in the subcutaneous layer Percentage of wound debrided: 100 Instrument Used: 3mm curette Tissue Removed: Fibrous, devitalized subcutaneous, biofilm, slough Severity: Fat Layer Exposed Amount of bleeding with debridement: Mild Bleeding Controlled with: Compression and gauze Patient tolerated procedure: Patient tolerated procedure well Post-Debridement Measurements and Additional Note: Post-Debridement Measurements/Treatment BRYANNA - Nurse 1 - General Ulcer Assessment Start: 05/09/23 08:09 Freq: Status: Active Protocol: OLIVIA Activity Type Activity Date Activity User E-sign Co-sign Detail Recorded Client Recorded Date Recorded By Document 05/09/23 08:09 DL Desktop 05/09/23 08:19 DL Document 05/16/23 08:10 KW Desktop 05/16/23 08:29 KW Document 05/30/23 08:04 JF Desktop 05/30/23 08:06 JF 05/09/23 05/16/23 05/30/23 08:09 08:10 08:04 WC - Today's Visit Information Type of service Follow-up Visit Follow-up Visit Follow-up Visit (Physician/DOG TRAINER (Physician/DOG TRAINER (Physician/DOG TRAINER ) ) ) Arrival Mode Ambulatory,Cane Ambulatory,Cane Ambulatory,Cane Transfer Assistance None Accompanied by Patient Identification Verified (Name & Yes Yes Yes ) Patient Requires Transmission-Based No Precautions Height and Weight Body Mass Index (BMI) 31.4 31.4 31.4 BMI Classification Obese Obese Obese Vital Signs Temperature (97.8 F-99.1 F) 97.5 F L 96.7 F L 97.5 F L Temperature Source Temporal Temporal Temporal Pulse Rate (60-100) 81 107 H 95 Pulse Location Monitor Apical Monitor Respiratory Rate (12-18) 18 18 18 Respiratory rate source Observation Observation Observation Oxygen Delivery Method Room Air Room Air Blood Pressure (90/60-120/80) 133/63 H 119/77 139/78 H Blood Pressure Mean (mm Hg) 86 91 98 Source Monitor Monitor Position Sitting Blood Pressure Location Left Forearm History Since Last Visit- (Skip if this is Patient's initial visit) Have you changed medications since your Yes No last visit? Any new allergies or adverse reactions No No No Had a fall/change in ADL's that may No No No increase risk of falls Signs or symptoms of abuse and/or No No No neglect since last visit Have you been in the hospital since your No No No last visit? Has dressing in place as prescribed Yes Yes Yes Has compression in place as prescribed Yes Yes Yes Has offloadiing in place as prescribed N/A No No Experienced any changes in pain level or No No No management Left Footwear Slipper Regular Shoe Regular Shoe Right Footwear Regular Shoe Regular Shoe Regular Shoe Pain Scale: 0-10 Numeric Is Patient Pain Free? Yes Yes Yes WC - Nurse 1 - General Ulcer Measurement Start: 05/09/23 08:09 Freq: Status: Active Protocol: Activity Type Activity Date Activity User E-sign Co-sign Detail Recorded Client Recorded Date Recorded By Document 05/09/23 08:09 DL Desktop 05/09/23 08:19 DL Document 05/16/23 08:10 KW Desktop 05/16/23 08:29 KW Document 05/30/23 08:04 JF Desktop 05/30/23 08:06 JF 05/09/23 05/16/23 05/30/23 08:09 08:10 08:04 Wound Center Nurse 1 #9 LT ANKLE -Current Size (cm) - Length 1 1.9 1 -Current Size (cm) - Width 0.7 0.7 0.5 -Current Size (cm) - Depth 0.3 0.4 0.2 -Total Square Cm 0.7 1.33 0.5 -Exudate Amt Small Medium Medium -Exudate Type Serosanguineous Serosanguineous Serosanguineous -Wound Margin Distinct, Distinct, Distinct, Outline Outline Outline Attached Attached Attached -Granulation Amt Large (67-100%) Small (1-33%) Medium (34-66%) -Granulation Quality Red Red [place] -Necrosis Amt Small (1-33%) Large (67-100%) Small (1-33%) -Necrotic Tissue Type Adherent Slough Adherent Slough Adherent Slough -Structure Exposed N/A -Texture (Jada-wound Skin Appearance) Scarring Assessed Assessed -Moisture (Jada-wound Skin Appearance) Dry/Scaly Assessed,Dry/ Dry/Scaly Scaly -Color (Jada-wound Skin Appearance) Hemosiderin Assessed Assessed Staining -Temperature (Jada-wound Skin No Abnormality No Abnormality No Abnormality Appearance) (Pt Warm) (Pt Warm) (Pt Warm) -Tenderness on Palpation (Jada-wound No Skin Appearance) -Ulcer Cleansing Soap and Water Soap and Water Soap and Water -Foul Odor after Cleansing No No -Anesthetic Used 5% Lidocaine 5% Lidocaine 5% Lidocaine Gel Gel Gel Right Calf (cm) 43.1 Right Ankle (cm) 23.0 Left Calf (cm) 38.7 39.5 38.6 Left Ankle (cm) 22.5 22.0 22.3 WC - Nurse 2 - General Ulcer CM Notes Start: 05/09/23 08:09 Freq: Status: Active Protocol: Activity Type Activity Date Activity User E-sign Co-sign Detail Recorded Client Recorded Date Recorded By Document 05/09/23 10:19 PL [id number] 05/09/23 10:21 PL Document 05/16/23 16:29 PL [id number] 05/16/23 16:31 PL 05/09/23 05/16/23 10:19 16:29 Wound Center Nurse 2 #9 LT ANKLE -Time 08:40 08:36 -Correct Patient Yes Yes -Correct Side, Site, Position Yes Yes -Correct Procedure Yes Yes -Procedure Performed Yes Yes -Type of Procedure Debridement Debridement -Clinical Debridement Subcutaneous Subcutaneous -Tissue Removed Subcutaneous Subcutaneous -Post Debridement (cm) - Length 1.3 1.4 -Post Debridement (cm) - Width 1.0 0.9 -Post Debridement (cm) - Depth 0.4 0.2 -Total Square (Post) (cm) 1.30 1.26 -Area of Debridement (cm) - Length 1.3 1.4 -Area of Debridement (cm) - Width 1.0 0.9 -Total Square (Area) (cm) 1.30 1.26 -Tunneling No No -Undermining/Tunneling No No -Circular Undermining No No -Wound/Ulcer Outcome Not Healed Not Healed -Ulcer Cleansing Rinsed/ Rinsed/ Irrigated with Irrigated with Saline Saline -Foul Odor after Cleansing No No -Bioengineered Tissue Yes Yes -Type of Bioengineered Tissue Epifix 18mm Epifix 18mm Disc Disc -Expiration Date 01/02/28 01/02/28 -Product Lot Number [id number] -Percent Used 100 100 -Bleeding Controlled with Pressure Pressure -Treatment Response Procedure Procedure Tolerated Well Tolerated Well -Debridement - Subq, 1st 20sq cm No No -Apply Skin Sub - 1st 25 sq cm - Legs 1 1 -Epifix 18mm Disc 3 3 Pain Scale: 0-10 Numeric Is Patient Pain Free? Yes Yes - Nurse 3 - General Ulcer D/C NN Start: 05/09/23 08:09 Freq: Status: Active Protocol: Activity Type Activity Date Activity User E-sign Co-sign Detail Recorded Client Recorded Date Recorded By Document 05/09/23 08:54 GM Desktop 05/09/23 08:55 GM Document 05/16/23 08:51 KW Desktop 05/16/23 08:51 KW 05/09/23 05/16/23 08:54 08:51 Wound Care Center Nurse 3 #9 LT ANKLE -Ulcer Cleansing Not Cleansed -Foul Odor after Cleansing No -Primary Dressing Covered/Secured with Dry Gauze & Dry Gauze & Roll Gauze, Roll Gauze, Secured with Secured with Tape Tape Left -Lotion applied to leg before Yes compression wrap -Tubular Bandage Single Layer Single Layer -Size of Tubigrip Used Size D Size D -Size D ($) 1 1 Pain Scale: 0-10 Numeric Is Patient Pain Free? Yes Yes Teaching: Wound Center Compression Wraps & Stockings -Person Taught Patient,Family -Teaching Method Discussion, Demonstration -Response to teaching Verbalize understanding Dressing Your Wound -Person Taught Patient,Family -Teaching Method Discussion, Demonstration -Response to teaching Verbalize understanding WC - Visit Discharge Discharge Condition Stable Ambulatory Status Ambulatory,Cane Transportation Private Auto Assessment/Plan Assessment/Plan (1) Non-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: CODE(S): L97.322 - Non-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 layerexposed (2) 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 layer exposed: CODE(S): L97.222 - 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 layer exposed (3) Delayed wound healing: CODE(S): T14.8XXD - Other injury of unspecified body region, subsequent encounter (4) Venous insufficiency of both lower extremities: CODE(S): I87.2 - Venous insufficiency (chronic) (peripheral) (5) Longstanding persistent atrial fibrillation: CODE(S): I48.11 - Longstanding persistent atrial fibrillation (6) Chronic diastolic (congestive) heart failure: CODE(S): I50.32 - Chronic diastolic (congestive) heart failure (7) DM type 2 (diabetes mellitus, type 2): CODE(S): E11.9 - Type 2 diabetes mellitus without complications QUALIFIERS: Diabetes mellitus complication status: with other specified complication 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: with 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 use Qualified Code(s): E11.69 - Type 2 diabetes mellitus with other specified complication; Z79.4 - termination clerk (current) use of insulin (8) Hyperlipidemia: CODE(S): E78.5 - Hyperlipidemia, unspecified QUALIFIERS: Hyperlipidemia type: unspecified Qualified Code(s): E78.5 - Hyperlipidemia, unspecified (9) COPD (chronic obstructive pulmonary disease): CODE(S): J44.9 - Chronic obstructive pulmonary disease, unspecified PLAN: Plan Patient seen and evaluated I reviewed his previous treatment history by PCP. Patient had followed Dr. Anderson. Ulceration to the left anterior lower extremity has healed. No signs of infection. Left lateral ankle measures 1.2 cm x 0.9 cm x 0.2 cm. Wound underwent debridement as noted in clinical panel above. EpiFix graft #2 applied to wound bed. Site dressed with Adaptic touch and anchored with Steri-Strips then dressed with dry sterile dressing. He was instructed to not get the dressing wet. They are to change outer layer as needed. Lateral ankle wound has slight reduction in size vs previous visit. Discussed continued diabetic diet to ensure proper glucose control. Recent A1c 6.4%. Discussed that this is a good standing for control of his diabetes and will aid in wound healing. Discussed with to aid in daily foot checks as her is blind. Discussed wearing shoe gear at all times and to never go barefoot. Socks include barefoot. They voiced understanding of this today. Recommend continued follow-up with PCP for continued diabetic management. Discussed adequate protein intake to continue to aid in wound healing. Also discussed Negrito supplementation to aid in wound healing. Discussed signs and symptoms with the pertaining to infection. Discussed if she notices increasing redness about the wound margin spreading up the leg, any purulent drainage from the wound site, increasing foul odor from the wound, or if he experiences fever greater than 101 degree, nausea, vomiting, chills that these are signs of progressing infection and he needs to report to the ED. They voiced understanding of this today. The following work up and care recommendations were made: Dressing: EpiFix, Adaptic touch, Steri-Strips, dry sterile dressing. Change outer dressing as needed Wash: Do not get wet Tissue growth optimization: EpiFix Offload: Ensure anterior leg is not bumped and discussed no picking at skin sites. Vascular: DP and PT pulses palpable with adequate capillary fill time. However skin demonstrates trophic changes consistent with microvascular disease. Edema: No edema currently, has history of chronic venous stasis. Recommend continued compression stocking. Infection: No signs of infection. Pain: May take [id number] Tylenol extra strength for discomfort. Host factors: DM type II, chronic venous stasis, CHF, COPD, blindness I answered all the patient's questions. To return to the wound healing center in 1 week or call sooner if the patient has any questions or concerns. 05/30/23923 <Electronically signed by Alejandro Talbot DPM> Cosigner Signature (if applicable): CC: ~ Signed [facility] Work Phone: [phone] 548-572612-14-2023 Progress note Author Alejandro Talbot [facility] May 16, 2023 9:20am Note Date/Time May 16, 2023 8:27am [facility] [address] [place] [address] Progress Note - Wound Care 05/16/23826 MR#: [id number] Acct: [id number] Name: ARMIN TURCIOS Rep #:[id number] : 1950 73 From: Alejandro bar DPM PCP: Dr. Jessi Olguin MD Status:REG RCR Location: History of Present Illness Date of Service: 05/16/23 Chief Complaint: Left Leg Ulcer History of Wound: Mr. Turcios is a 72-year-old with PMHx of of diabetes mellitus type 2, venous insufficiency bilateral lower extremity, history of multiple ulcerations, HTN, HLD, COPD, A-fib, CHF. He presents back to the woundcare center today accompanied by his for nonhealing left lower extremity ulceration. states he has either bumped his leg on something or picked at some skin on the front of his leg creating a new wound. They state they have been following with Dr. Anderson in [place] as well as PCP Dr. Olguin. They stateoccasional use of mupirocin topical ointment but otherwise have not been applying dressings to the site. They state the wound has been present for a fewweeks and has not made much progress and thus they were referred to the wound care center for continued wound healing. He denies N/V/F/chills. He has no further complaints. Subjective Subjective Patient is a 73-year-old male who follows up to the wound care center today for a left lower extremity ulceration x 2. His states she has left graft in place and is only changing outer dressings as needed. She does state that he does not keep feet elevated as much as he should. He did see PCP for check up last week. He denies constitutional symptoms today. Denies further complaints today. Objective Data Objective Data Vital Signs: Vital Signs Temp Pulse Resp BP 97.5 F L 81 18 133/63 H 05/09/23 08:09 05/09/23 08:09 05/09/23 08:09 05/09/23 08:09 Weight: 114.015 kg Body Mass Index (BMI) 31.4 Physical Exam Const alert, oriented x3 and no apparent distress General Appearance: cooperative HEENT normocephalic Eyes General Eye: normal appearance of both eyes Neck General: normal visual inspection Lymph Lymphatic: no lymphadenopathy noted and no lymphedema noted Resp normal respiratory effort Cardio regular rate and regular rhythm Extremity normal capillary refill, no joint enlargement, no calf tenderness and no pedal edema Extremity Narrative: DP pulses palpable and PT pulses weakly palpable bilateral. CFT less than 3 seconds to the digits bilateral. Hair growth absent to digits of foot bilateral. Dermatological: Skin is thin and demonstrating trophic changes bilateral lower extremity. Skin is excessively dry with peeling/flaking consistent with diabetic autonomic neuropathy and microvascular disease. There is an ulcerationnoted to the anterior aspect overlying the tibial crest which has healed, no signs of infection. Ulceration noted to the lateral ankle with mixed fibrogranular layer. No signs of infection. Musculoskeletal: Muscle strength 5 of 5 age-appropriate. Decreased ankle range of motion in dorsiflexion with the knee extended without pain or crepitus bilateral. Decreased range of motion of the first metatarsophalangeal joint without pain or crepitus bilateral. There is hammertoe deformity of lesser digits bilateral without pain to palpation. Skin no rashes or lesions noted, skin turgor normal and no jaundice Neuro moves all extremities Debridement Note Debridement Note Wound debrided: Left lateral ankle Laterality: Left Wound Grade/Stage: Miguel stage I Type of Debridement: Excisional debridement Anesthesia Used: 5% Lidocaine Gel Depth: Down to and including healthy tissue and in the subcutaneous layer Percentage of wound debrided: 100 Instrument Used: 3mm curette and #15 blade Tissue Removed: Fibrous, devitalized subcutaneous, biofilm, slough Severity: Fat Layer Exposed Amount of bleeding with debridement: Mild Bleeding Controlled with: Compression and gauze Patient tolerated procedure: Patient tolerated procedure well Post-Debridement Measurements and Additional Note: Post-Debridement Measurements/Treatment - Nurse 1 - General Ulcer Assessment Start: 05/09/23 08:09 Freq: Status: Active Protocol: OLIVIA Activity Type Activity Date Activity User E-sign Co-sign Detail Recorded Client Recorded Date Recorded By Document 05/09/23 08:09 DL [employer]ktop 05/09/23 08:19 DL 05/09/23 08:09 WC - Today's Visit Information Type of service Follow-up Visit (Physician/DOG TRAINER ) Arrival Mode Ambulatory,Cane Transfer Assistance None Patient Identification Verified (Name & Yes ) Patient Requires Transmission-Based No Precautions Height and Weight Body Mass Index (BMI) 31.4 BMI Classification Obese Vital Signs Temperature (97.8 F-99.1 F) 97.5 F L Temperature Source Temporal Pulse Rate (60-100) 81 Pulse Location Monitor Respiratory Rate (12-18) 18 Respiratory rate source Observation Blood Pressure (90/60-120/80) 133/63 H Blood Pressure Mean (mm Hg) 86 Source Monitor History Since Last Visit- (Skip if this is Patient's initial visit) Any new allergies or adverse reactions No Had a fall/change in ADL's that may No increase risk of falls Signs or symptoms of abuse and/or No neglect since last visit Have you been in the hospital since your No last visit? Has dressing in place as prescribed Yes Has compression in place as prescribed Yes Has offloadiing in place as prescribed N/A Experienced any changes in pain level or No management Left Footwear Slipper Right Footwear Regular Shoe Pain Scale: 0-10 Numeric Is Patient Pain Free? Yes - Nurse 1 - General Ulcer Measurement Start: 05/09/23 08:09 Freq: Status: Active Protocol: Activity Type Activity Date Activity User E-sign Co-sign Detail Recorded Client Recorded Date Recorded By Document 05/09/23 08:09 DL [employer]ktop 05/09/23 08:19 DL 05/09/23 08:09 Wound Center Nurse 1 #9 LT ANKLE -Current Size (cm) - Length 1 -Current Size (cm) - Width 0.7 -Current Size (cm) - Depth 0.3 -Total Square Cm 0.7 -Exudate Amt Small -Exudate Type Serosanguineous -Wound Margin Distinct, Outline Attached -Granulation Amt Large (67-100%) -Granulation Quality Red -Necrosis Amt Small (1-33%) -Necrotic Tissue Type Adherent Slough -Structure Exposed N/A -Texture (Jada-wound Skin Appearance) Scarring -Moisture (Jada-wound Skin Appearance) Dry/Scaly -Color (Jada-wound Skin Appearance) Hemosiderin Staining -Temperature (Jada-wound Skin No Abnormality Appearance) (Pt Warm) -Tenderness on Palpation (Jada-wound No Skin Appearance) -Ulcer Cleansing Soap and Water -Foul Odor after Cleansing No -Anesthetic Used 5% Lidocaine Gel Left Calf (cm) 38.7 Left Ankle (cm) 22.5 - Nurse 2 - General Ulcer CM Notes Start: 05/09/23 08:09 Freq: Status: Active Protocol: Activity Type Activity Date Activity User E-sign Co-sign Detail Recorded Client Recorded Date Recorded By Document 05/09/23 10:19 BARRY [id number] 05/09/23 10:21 PL 05/09/23 10:19 Wound Center Nurse 2 #9 LT ANKLE -Time 08:40 -Correct Patient Yes -Correct Side, Site, Position Yes -Correct Procedure Yes -Procedure Performed Yes -Type of Procedure Debridement -Clinical Debridement Subcutaneous -Tissue Removed Subcutaneous -Post Debridement (cm) - Length 1.3 -Post Debridement (cm) - Width 1.0 -Post Debridement (cm) - Depth 0.4 -Total Square (Post) (cm) 1.30 -Area of Debridement (cm) - Length 1.3 -Area of Debridement (cm) - Width 1.0 -Total Square (Area) (cm) 1.30 -Tunneling No -Undermining/Tunneling No -Circular Undermining No -Wound/Ulcer Outcome Not Healed -Ulcer Cleansing Rinsed/ Irrigated with Saline -Foul Odor after Cleansing No -Bioengineered Tissue Yes -Type of Bioengineered Tissue Epifix 18mm Disc -Expiration Date 01/02/28 -Product Lot Number [id number] -Percent Used 100 -Bleeding Controlled with Pressure -Treatment Response Procedure Tolerated Well -Debridement - Subq, 1st 20sq cm No -Apply Skin Sub - 1st 25 sq cm - Legs 1 -Epifix 18mm Disc 3 Pain Scale: 0-10 Numeric Is Patient Pain Free? Yes - Nurse 3 - General Ulcer D/C NN Start: 05/09/23 08:09 Freq: Status: Active Protocol: Activity Type Activity Date Activity User E-sign Co-sign Detail Recorded Client Recorded Date Recorded By Document 05/09/23 08:54 GM Desktop 05/09/23 08:55 GM 05/09/23 08:54 Wound Care Center Nurse 3 #9 LT ANKLE -Ulcer Cleansing Not Cleansed -Foul Odor after Cleansing No -Primary Dressing Covered/Secured with Dry Gauze & Roll Gauze, Secured with Tape Left -Lotion applied to leg before Yes compression wrap -Tubular Bandage Single Layer -Size of Tubigrip Used Size D -Size D ($) 1 Pain Scale: 0-10 Numeric Is Patient Pain Free? Yes Teaching: Wound Center Compression Wraps & Stockings -Person Taught Patient,Family -Teaching Method Discussion, Demonstration -Response to teaching Verbalize understanding Dressing Your Wound -Person Taught Patient,Family -Teaching Method Discussion, Demonstration -Response to teaching Verbalize understanding WC - Visit Discharge Discharge Condition Stable Ambulatory Status Ambulatory,Cane Transportation Private Auto Assessment/Plan Assessment/Plan (1) Non-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: CODE(S): L97.322 - Non-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 layerexposed (2) 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 layer exposed: CODE(S): L97.222 - 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 layer exposed (3) Delayed wound healing: CODE(S): T14.8XXD - Other injury of unspecified body region, subsequent encounter (4) Venous insufficiency of both lower extremities: CODE(S): I87.2 - Venous insufficiency (chronic) (peripheral) (5) Longstanding persistent atrial fibrillation: CODE(S): I48.11 - Longstanding persistent atrial fibrillation (6) Chronic diastolic (congestive) heart failure: CODE(S): I50.32 - Chronic diastolic (congestive) heart failure (7) DM type 2 (diabetes mellitus, type 2): CODE(S): E11.9 - Type 2 diabetes mellitus without complications QUALIFIERS: Diabetes mellitus complication status: with other specified complication 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: with 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 use Qualified Code(s): E11.69 - Type 2 diabetes mellitus with other specified complication; Z79.4 - long-term (current) use of insulin (8) Hyperlipidemia: CODE(S): E78.5 - Hyperlipidemia, unspecified QUALIFIERS: Hyperlipidemia type: unspecified Qualified Code(s): E78.5 - Hyperlipidemia, unspecified (9) COPD (chronic obstructive pulmonary disease): CODE(S): J44.9 - Chronic obstructive pulmonary disease, unspecified PLAN: Plan Patient seen and evaluated I reviewed his previous treatment history by PCP. Patient had followed Dr. Anderson. Ulceration to the left anterior lower extremity has healed. No signs of infection. Left lateral ankle measures 1.2 cm x 0.9 cm x 0.4 cm. Wound underwent debridement as noted in clinical panel above. EpiFix graft #1 applied to wound bed. Site dressed with Adaptic touch and anchored with Steri-Strips then dressed with dry sterile dressing. He was instructed to not get the dressing wet. They are to change outer layer as needed. Lateral ankle wound has slight reduction in size vs previous visit. Discussed continued diabetic diet to ensure proper glucose control. Recent A1c 6.4%. Discussed that this is a good standing for control of his diabetes and will aid in wound healing. Discussed with to aid in daily foot checks as her is blind. Discussed wearing shoe gear at all times and to never go barefoot. Socks include barefoot. They voiced understanding of this today. Recommend continued follow-up with PCP for continued diabetic management. Discussed adequate protein intake to continue to aid in wound healing. Also discussed Negrito supplementation to aid in wound healing. Discussed signs and symptoms with the pertaining to infection. Discussed if she notices increasing redness about the wound margin spreading up the leg, any purulent drainage from the wound site, increasing foul odor from the wound, or if he experiences fever greater than 101 degree, nausea, vomiting, chills that these are signs of progressing infection and he needs to report to the ED. They voiced understanding of this today. The following work up and care recommendations were made: Dressing: EpiFix, Adaptic touch, Steri-Strips, dry sterile dressing. Change outer dressing as needed Wash: Do not get wet Tissue growth optimization: EpiFix Offload: Ensure anterior leg is not bumped and discussed no picking at skin sites. Vascular: DP and PT pulses palpable with adequate capillary fill time. However skin demonstrates trophic changes consistent with microvascular disease. Edema: No edema currently, has history of chronic venous stasis. Recommend continued compression stocking. Infection: No signs of infection. Pain: May take [id number] Tylenol extra strength for discomfort. Host factors: DM type II, chronic venous stasis, CHF, COPD, blindness I answered all the patient's questions. To return to the wound healing center in 2 weeks or call sooner if the patient has any questions or concerns. 05/16/23919 <Electronically signed by Alejandro Talbot DPM> Cosigner Signature (if applicable): CC: ~ Signed [facility] Work Phone: 1(601) 410-452612-07-2023 Progress note Author Alejandro Talbot [facility] May 09, 2023 9:33am Note Date/Time May 09, 2023 9 :34am [facility] [address] [place] [address] Progress Note - Wound Care 05/09/23926 MR#: [id number] Acct: [id number] Name: ARMIN TURCIOS Rep #:[id number] : 1950 73 From: Alejandro bar DPM PCP: Dr. Jessi Olguin MD Status:[facility] Location: History of Present Illness Date of Service: 05/09/23 Chief Complaint: Left Leg Ulcer History of Wound: Mr. Turcios is a 72-year-old with PMHx of of diabetes mellitus type 2, venous insufficiency bilateral lower extremity, history of multiple ulcerations, HTN, HLD, COPD, A-fib, CHF. He presents back to the woundcare center today accompanied by his for nonhealing left lower extremity ulceration. states he has either bumped his leg on something or picked at some skin on the front of his leg creating a new wound. They state they have been following with Dr. Anderson in [place] as well as PCP Dr. Olguin. They stateoccasional use of mupirocin topical ointment but otherwise have not been applying dressings to the site. They state the wound has been present for a fewweeks and has not made much progress and thus they were referred to the wound care center for continued wound healing. He denies N/V/F/chills. He has no further complaints. Subjective Subjective Patient is a 73-year-old male who follows up to the wound care center today for a left lower extremity ulceration x 2. His states she has left graft in place and is only changing outer dressings as needed. She does state that he does not keep feet elevated as much as he should. He will be seeing his PCP today for check up. He denies constitutional symptoms today. Denies further complaints today. Objective Data Objective Data Vital Signs: Vital Signs Temp Pulse Resp BP 97.5 F L 81 18 133/63 H 05/09/23 08:09 05/09/23 08:09 05/09/23 08:09 05/09/23 08:09 Weight: 114.015 kg Body Mass Index (BMI) 31.4 Physical Exam Const alert, oriented x3 and no apparent distress General Appearance: cooperative HEENT normocephalic Eyes General Eye: normal appearance of both eyes Neck General: normal visual inspection Lymph Lymphatic: no lymphadenopathy noted and no lymphedema noted Resp normal respiratory effort Cardio regular rate and regular rhythm Extremity normal capillary refill, no joint enlargement, no calf tenderness and no pedal edema Extremity Narrative: DP pulses palpable and PT pulses weakly palpable bilateral. CFT less than 3 seconds to the digits bilateral. Hair growth absent to digits of foot bilateral. Dermatological: Skin is thin and demonstrating trophic changes bilateral lower extremity. Skin is excessively dry with peeling/flaking consistent with diabetic autonomic neuropathy and microvascular disease. There is an ulcerationnoted to the anterior aspect overlying the tibial crest which has healed, no signs of infection. Ulceration noted to the lateral ankle with mixed fibrogranular layer. No signs of infection. Musculoskeletal: Muscle strength 5 of 5 age-appropriate. Decreased ankle range of motion in dorsiflexion with the knee extended without pain or crepitus bilateral. Decreased range of motion of the first metatarsophalangeal joint without pain or crepitus bilateral. There is hammertoe deformity of lesser digits bilateral without pain to palpation. Skin no rashes or lesions noted, skin turgor normal and no jaundice Neuro moves all extremities Debridement Note Debridement Note Wound debrided: Left lateral ankle Laterality: Left Wound Grade/Stage: Miguel stage I Type of Debridement: Excisional debridement Anesthesia Used: 5% Lidocaine Gel Depth: Down to and including healthy tissue and in the subcutaneous layer Percentage of wound debrided: 100 Instrument Used: 5mm curette Tissue Removed: Fibrous, devitalized subcutaneous, biofilm, slough Severity: Fat Layer Exposed Amount of bleeding with debridement: Mild Bleeding Controlled with: Compression and gauze Patient tolerated procedure: Patient tolerated procedure well Post-Debridement Measurements and Additional Note: Post-Debridement Measurements/Treatment BRYANNA - Nurse 1 - General Ulcer Assessment Start: 05/09/23 08:09 Freq: Status: Active Protocol: OLIVIA Activity Type Activity Date Activity User E-sign Co-sign Detail Recorded Client Recorded Date Recorded By Document 05/09/23 08:09 DL [employer] 05/09/23 08:19 DL 05/09/23 08:09 WC - Today's Visit Information Type of service Follow-up Visit (Physician/DOG TRAINER ) Arrival Mode Ambulatory,Cane Transfer Assistance None Patient Identification Verified (Name & Yes ) Patient Requires Transmission-Based No Precautions Height and Weight Body Mass Index (BMI) 31.4 BMI Classification Obese Vital Signs Temperature (97.8 F-99.1 F) 97.5 F L Temperature Source Temporal Pulse Rate (60-100) 81 Pulse Location Monitor Respiratory Rate (12-18) 18 Respiratory rate source Observation Blood Pressure (90/60-120/80) 133/63 H Blood Pressure Mean (mm Hg) 86 Source Monitor History Since Last Visit- (Skip if this is Patient's initial visit) Any new allergies or adverse reactions No Had a fall/change in ADL's that may No increase risk of falls Signs or symptoms of abuse and/or No neglect since last visit Have you been in the hospital since your No last visit? Has dressing in place as prescribed Yes Has compression in place as prescribed Yes Has offloadiing in place as prescribed N/A Experienced any changes in pain level or No management Left Footwear Slipper Right Footwear Regular Shoe Pain Scale: 0-10 Numeric Is Patient Pain Free? Yes - Nurse 1 - General Ulcer Measurement Start: 05/09/23 08:09 Freq: Status: Active Protocol: Activity Type Activity Date Activity User E-sign Co-sign Detail Recorded Client Recorded Date Recorded By Document 05/09/23 08:09 DL [employer] 05/09/23 08:19 DL 05/09/23 08:09 Wound Center Nurse 1 #9 LT ANKLE -Current Size (cm) - Length 1 -Current Size (cm) - Width 0.7 -Current Size (cm) - Depth 0.3 -Total Square Cm 0.7 -Exudate Amt Small -Exudate Type Serosanguineous -Wound Margin Distinct, Outline Attached -Granulation Amt Large (67-100%) -Granulation Quality Red -Necrosis Amt Small (1-33%) -Necrotic Tissue Type Adherent Slough -Structure Exposed N/A -Texture (Jada-wound Skin Appearance) Scarring -Moisture (Jada-wound Skin Appearance) Dry/Scaly -Color (Jada-wound Skin Appearance) Hemosiderin Staining -Temperature (Jaad-wound Skin No Abnormality Appearance) (Pt Warm) -Tenderness on Palpation (Jada-wound No Skin Appearance) -Ulcer Cleansing Soap and Water -Foul Odor after Cleansing No -Anesthetic Used 5% Lidocaine Gel Left Calf (cm) 38.7 Left Ankle (cm) 22.5 WC - Nurse 3 - General Ulcer D/C NN Start: 05/09/23 08:09 Freq: Status: Active Protocol: Activity Type Activity Date Activity User E-sign Co-sign Detail Recorded Client Recorded Date Recorded By Document 05/09/23 08:54 GM Desktop 05/09/23 08:55 GM 05/09/23 08:54 Wound Care Center Nurse 3 #9 LT ANKLE -Ulcer Cleansing Not Cleansed -Foul Odor after Cleansing No -Primary Dressing Covered/Secured with Dry Gauze & Roll Gauze, Secured with Tape Left -Lotion applied to leg before Yes compression wrap -Tubular Bandage Single Layer -Size of Tubigrip Used Size D -Size D ($) 1 Pain Scale: 0-10 Numeric Is Patient Pain Free? Yes Teaching: Wound Center Compression Wraps & Stockings -Person Taught Patient,Family -Teaching Method Discussion, Demonstration -Response to teaching Verbalize understanding Dressing Your Wound -Person Taught Patient,Family -Teaching Method Discussion, Demonstration -Response to teaching Verbalize understanding WC - Visit Discharge Discharge Condition Stable Ambulatory Status Ambulatory,Cane Transportation Private Auto Additional Wound Wound debrided: Left lower extremity Laterality: Left Wound Grade/Stage: Miguel stage I Type of Debridement: Excisional debridement Anesthesia Used: 5% Lidocaine Gel Depth: Down to and including healthy tissue and in the subcutaneous layer Percentage of wound debrided: 100 Instrument Used: 5mm curette Tissue Removed: Fibrous, devitalized subcutaneous, biofilm, slough Severity: Fat Layer Exposed Amount of bleeding with debridement: Mild Bleeding Controlled with: Compression and gauze Patient tolerated procedure: Patient tolerated procedure well Assessment/Plan Assessment/Plan (1) Non-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: CODE(S): L97.322 - Non-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 layerexposed (2) 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 layer exposed: CODE(S): L97.222 - 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 layer exposed (3) Delayed wound healing: CODE(S): T14.8XXD - Other injury of unspecified body region, subsequent encounter (4) Venous insufficiency of both lower extremities: CODE(S): I87.2 - Venous insufficiency (chronic) (peripheral) (5) Longstanding persistent atrial fibrillation: CODE(S): I48.11 - Longstanding persistent atrial fibrillation (6) Chronic diastolic (congestive) heart failure: CODE(S): I50.32 - Chronic diastolic (congestive) heart failure (7) DM type 2 (diabetes mellitus, type 2): CODE(S): E11.9 - Type 2 diabetes mellitus without complications QUALIFIERS: 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 Patient had followed Dr. Anderson. Ulceration underwent debridement as noted in the clinical panel above. Ulceration to the left anterior lower extremity measures 0.8 cm x 0.4 cm x 0.1 cm. No signs of infection. EpiFix graft #10 applied to wound bed. Site dressed with Adaptic touch and anchored with Steri-Strips then dressed with dry sterile dressing. He was instructed to not get the dressing wet. They are to change outer layer as needed. Left lateral ankle measures 1.3 cm x 1.0 cm x 0.4 cm. Wound underwent debridement as noted in clinical panel above. Sunni applied to the wound and they will change daily. Anterior leg wound does demonstrates slight in size from previous visit secondary to superficial skin tear. Lateral ankle wound has remained same size vs previous visit. Discussed continued diabetic diet to ensure proper glucose control. Recent A1c 6.4%. Discussed that this is a good standing for control of his diabetes and will aid in wound healing. Discussed with to aid in daily foot checks as her is blind. Discussed wearing shoe gear at all times and to never go barefoot. Socks include barefoot. They voiced understanding of this today. Recommend continued follow-up with PCP for continued diabetic management. Discussed adequate protein intake to continue to aid in wound healing. Also discussed Negrito supplementation to aid in wound healing. Discussed signs and symptoms with the pertaining to infection. Discussed if she notices increasing redness about the wound margin spreading up the leg, any purulent drainage from the wound site, increasing foul odor from the wound, or if he experiences fever greater than 101 degree, nausea, vomiting, chills that these are signs of progressing infection and he needs to report to the ED. They voiced understanding of this today. The following work up and care recommendations were made: Dressing: EpiFix, Adaptic touch, Steri-Strips, dry sterile dressing. Change outer dressing as needed Wash: Do not get wet Tissue growth optimization: EpiFix Offload: Ensure anterior leg is not bumped and discussed no picking at skin sites. Vascular: DP and PT pulses palpable with adequate capillary fill time. However skin demonstrates trophic changes consistent with microvascular disease. Edema: No edema currently, has history of chronic venous stasis. Recommend continued compression stocking. Infection: No signs of infection. Pain: May take [id number] Tylenol extra strength for discomfort. Host factors: DM type II, chronic venous stasis, CHF, COPD, blindness I answered all the patient's questions. To return to the wound healing center in 1 week or call sooner if the patient has any questions or concerns. 05/09/23 2998 <Electronically signed by Alejandro Talbot DPM> Cosigner Signature (if applicable): CC: ~ Signed [facility] Work Phone: [phone]) 555-104111-30-2023 Progress note Author Alejandro Antione [facility] May 02, 2023 9:18am Note Date/Time May 02, 2023 9:14am [facility] [address] [place] [address] Progress Note - Wound Care 05/02/23 0911 MR#: [id number] Acct: [id number] Name: ARMIN TURCIOS Rep #:[id number] : 1950 73 From: Alejandro bar DPM PCP: Dr. Jessi Olguin MD Status:REG RCR Location: History of Present Illness Date of Service: 05/02/23 Chief Complaint: Left Leg Ulcer History of Wound: Mr. Turcios is a 72-year-old with PMHx of of diabetes mellitus type 2, venous insufficiency bilateral lower extremity, history of multiple ulcerations, HTN, HLD, COPD, A-fib, CHF. He presents back to the woundcare center today accompanied by his for nonhealing left lower extremity ulceration. states he has either bumped his leg on something or picked at some skin on the front of his leg creating a new wound. They state they have been following with Dr. Anderson in [place] as well as PCP Dr. Olguin. They stateoccasional use of mupirocin topical ointment but otherwise have not been applying dressings to the site. They state the wound has been present for a fewweeks and has not made much progress and thus they were referred to the wound care center for continued wound healing. He denies N/V/F/chills. He has no further complaints. Subjective Subjective Patient is a 73-year-old male who follows up to the wound care center today for a left lower extremity ulceration x 2. His states she has left graft in place and is only changing outer dressings as needed. She does state that he does not keep feet elevated as much as he should. States they had a good Thanksgiving. He denies constitutional symptoms today. Denies further complaints today. Objective Data Objective Data Vital Signs: Vital Signs Temp Pulse Resp BP O2 Del Method 97.4 F L 97 18 124/73 H Room Air 05/02/23 08:05 05/02/23 08:05 05/02/23 08:05 05/02/23 08:05 05/02/23 08:05 Oxygen Delivery Method Room Air Weight: 114.015 kg Body Mass Index (BMI) 31.4 Physical Exam Const alert, oriented x3 and no apparent distress General Appearance: cooperative HEENT normocephalic Eyes General Eye: normal appearance of both eyes Neck General: normal visual inspection Lymph Lymphatic: no lymphadenopathy noted and no lymphedema noted Resp normal respiratory effort Cardio regular rate and regular rhythm Extremity normal capillary refill, no joint enlargement, no calf tenderness and no pedal edema Extremity Narrative: DP pulses palpable and PT pulses weakly palpable bilateral. CFT less than 3 seconds to the digits bilateral. Hair growth absent to digits of foot bilateral. Dermatological: Skin is thin and demonstrating trophic changes bilateral lower extremity. Skin is excessively dry with peeling/flaking consistent with diabetic autonomic neuropathy and microvascular disease. There is an ulcerationnoted to the anterior aspect overlying the tibial crest which has healed, no signs of infection. Ulceration noted to the lateral ankle with mixed fibrogranular layer. No signs of infection. Musculoskeletal: Muscle strength 5 of 5 age-appropriate. Decreased ankle range of motion in dorsiflexion with the knee extended without pain or crepitus bilateral. Decreased range of motion of the first metatarsophalangeal joint without pain or crepitus bilateral. There is hammertoe deformity of lesser digits bilateral without pain to palpation. Skin no rashes or lesions noted, skin turgor normal and no jaundice Neuro moves all extremities Debridement Note Debridement Note Wound debrided: Left lateral ankle Laterality: Left Wound Grade/Stage: Miguel stage I Type of Debridement: Excisional debridement Anesthesia Used: 5% Lidocaine Gel Depth: Down to and including healthy tissue and in the subcutaneous layer Percentage of wound debrided: 100 Instrument Used: 5mm curette Tissue Removed: Fibrous, devitalized subcutaneous, biofilm, slough Severity: Fat Layer Exposed Amount of bleeding with debridement: Mild Bleeding Controlled with: Compression and gauze Patient tolerated procedure: Patient tolerated procedure well Post-Debridement Measurements and Additional Note: Post-Debridement Measurements/Treatment WC - Nurse 1 - General Ulcer Assessment Start: 04/11/23 08:16 Freq: Status: Active Protocol: [email or web address] Activity Type Activity Date Activity User E-sign Co-sign Detail Recorded Client Recorded Date Recorded By Document 04/11/23 08:16 DL Desktop 04/11/23 08:26 DL Document 04/18/23 08:01 NRL Desktop 04/18/23 08:14 NRL Document 05/02/23 08:05 KW Desktop 05/02/23 08:16 KW 04/11/23 04/18/23 05/02/23 08:16 08:01 08:05 WC - Today's Visit Information Type of service Follow-up Visit Follow-up Visit Follow-up Visit (Physician/DOG TRAINER (Physician/DOG TRAINER (Physician/DOG TRAINER ) ) ) Arrival Mode Ambulatory Ambulatory,Cane Ambulatory,Cane Transfer Assistance None Accompanied by Patient Identification Verified (Name & Yes Yes Yes ) Patient Requires Transmission-Based No Precautions Finger Stick Blood Sugar(mg/dl) (if 197 indicated): Blood Sugar Stated by Patient Height and Weight Body Mass Index (BMI) 31.4 31.4 31.4 BMI Classification Obese Obese Obese Vital Signs Temperature (97.8 F-99.1 F) 97.6 F L 97.4 F L 97.4 F L Temperature Source Temporal Temporal Temporal Pulse Rate (60-100) 91 98 97 Pulse Location Monitor Monitor Monitor Respiratory Rate (12-18) 18 16 18 Respiratory rate source Observation Observation Observation Oxygen Delivery Method Room Air Blood Pressure (90/60-120/80) 134/74 H 135/71 H 124/73 H Blood Pressure Mean (mm Hg) 94 92 90 Source Monitor Monitor Monitor Position Sitting Sitting Blood Pressure Location Left Arm Left Arm History Since Last Visit- (Skip if this is Patient's initial visit) Have you changed medications since your No No No last visit? Any new allergies or adverse reactions No No No Had a fall/change in ADL's that may No No No increase risk of falls Signs or symptoms of abuse and/or No No neglect since last visit Have you been in the hospital since your No No No last visit? Has dressing in place as prescribed Yes Yes Yes Has compression in place as prescribed Yes Yes Yes Has offloadiing in place as prescribed Yes N/A No Experienced any changes in pain level or No No No management Left Footwear Regular Shoe Regular Shoe Right Footwear Regular Shoe Regular Shoe Pain Scale: 0-10 Numeric Is Patient Pain Free? Yes Yes Yes WC - Nurse 1 - General Ulcer Measurement Start: 04/11/23 08:16 Freq: Status: Active Protocol: Activity Type Activity Date Activity User E-sign Co-sign Detail Recorded Client Recorded Date Recorded By Document 04/11/23 08:16 DL Desktop 04/11/23 08:26 DL Document 04/18/23 08:01 NRL Desktop 04/18/23 08:14 NRL Document 05/02/23 08:05 KW Desktop 05/02/23 08:16 KW 04/11/23 04/18/23 05/02/23 08:16 08:01 08:05 Wound Center Nurse 1 #9 LT ANKLE -Combined with other wound No -Current Size (cm) - Length 1.4 1.1 -Current Size (cm) - Width 0.8 1.7 -Current Size (cm) - Depth 0.3 0.2 -Total Square Cm 1.12 1.87 -Epithelialization Small 1-33% -Undermining/Tunneling No -Circular Undermining No -Exudate Amt Small Medium Small -Exudate Type Serosanguineous Serosanguineous Serosanguineous -Wound Margin Distinct, Distinct, Thickened Outline Outline Attached Attached -Granulation Amt Small (1-33%) Small (1-33%) Small (1-33%) -Granulation Quality [place] -Slough/Fibrin Yes -Necrosis Amt Large (67-100%) Medium (34-66%) Large (67-100%) -Necrotic Tissue Type Adherent Slough Adherent Slough Adherent Slough -Structure Exposed N/A -Texture (Jada-wound Skin Appearance) Scarring Assessed Assessed,Callus -Moisture (Jada-wound Skin Appearance) Dry/Scaly Assessed Assessed -Color (Jada-wound Skin Appearance) Hemosiderin Assessed Assessed Staining -Temperature (Jada-wound Skin No Abnormality No Abnormality No Abnormality Appearance) (Pt Warm) (Pt Warm) (Pt Warm) -Tenderness on Palpation (Jada-wound No No Skin Appearance) -Ulcer Cleansing Soap and Water Wound Cleanser Soap and Water -Foul Odor after Cleansing No No -Anesthetic Used 5% Lidocaine 5% Lidocaine 5% Lidocaine Gel Gel Gel #8 L Leon -Combined with other wound No -Current Size (cm) - Length 0.1 0.4 -Current Size (cm) - Width 0.1 0.3 -Current Size (cm) - Depth 0.1 0.1 -Total Square Cm 0.01 0.12 -Epithelialization Small 1-33% -Tunneling No -Undermining/Tunneling No -Exudate Amt None Present Medium -Exudate Type Serosanguineous -Wound Margin Thickened Distinct, Outline Attached -Granulation Amt None Present (0 Small (1-33%) %) -Granulation Quality [place] -Slough/Fibrin Yes -Necrosis Amt Medium (34-66%) Medium (34-66%) -Necrotic Tissue Type Eschar Adherent Slough -Structure Exposed N/A -Texture (Jada-wound Skin Appearance) Scarring Assessed -Moisture (Jada-wound Skin Appearance) Dry/Scaly Assessed -Color (Jada-wound Skin Appearance) Hemosiderin Assessed Staining -Temperature (Jada-wound Skin No Abnormality No Abnormality No Abnormality Appearance) (Pt Warm) (Pt Warm) (Pt Warm) -Tenderness on Palpation (Jada-wound No No Skin Appearance) -Ulcer Cleansing Soap and Water Wound Cleanser Soap and Water -Foul Odor after Cleansing No No -Anesthetic Used 5% Lidocaine 5% Lidocaine 5% Lidocaine Gel Gel Gel -Wound Comment(s) scabbed Left Calf (cm) 38 40.5 38 Left Ankle (cm) 21.6 22.0 22 WC - Nurse 2 - General Ulcer CM Notes Start: 04/11/23 08:16 Freq: Status: Active Protocol: Activity Type Activity Date Activity User E-sign Co-sign Detail Recorded Client Recorded Date Recorded By Document 04/11/23 16:38 [id number] 04/11/23 16:41 PL Document 04/18/23 16:06 [id number] 04/18/23 16:09 PL 04/11/23 04/18/23 16:38 16:06 Wound Center Nurse 2 #9 LT ANKLE -Time 08:41 08:34 -Correct Patient Yes Yes -Correct Side, Site, Position Yes Yes -Correct Procedure Yes Yes -Procedure Performed Yes Yes -Type of Procedure Debridement Debridement -Clinical Debridement Subcutaneous Subcutaneous -Tissue Removed Subcutaneous Subcutaneous -Post Debridement (cm) - Length 1.5 1.2 -Post Debridement (cm) - Width 1.0 1.0 -Post Debridement (cm) - Depth 0.4 0.4 -Total Square (Post) (cm) 1.50 1.20 -Area of Debridement (cm) - Length 1.5 1.2 -Area of Debridement (cm) - Width 1.0 1.0 -Total Square (Area) (cm) 1.50 1.20 -Tunneling No No -Undermining/Tunneling No No -Circular Undermining No No -Wound/Ulcer Outcome Not Healed Not Healed -Ulcer Cleansing Rinsed/ Rinsed/ Irrigated with Irrigated with Saline Saline -Foul Odor after Cleansing No No -Bioengineered Tissue No No -Bleeding Controlled with Pressure Pressure -Treatment Response Procedure Procedure Tolerated Well Tolerated Well -Debridement - Subq, 1st 20sq cm Yes Yes #8 L Leon -Time 08:41 08:34 -Correct Patient Yes Yes -Correct Side, Site, Position Yes Yes -Correct Procedure Yes Yes -Procedure Performed Yes Yes -Type of Procedure Debridement Debridement -Clinical Debridement Subcutaneous Subcutaneous -Tissue Removed Subcutaneous Subcutaneous -Post Debridement (cm) - Length 0.5 1.1 -Post Debridement (cm) - Width 0.4 0.5 -Post Debridement (cm) - Depth 0.1 0.1 -Total Square (Post) (cm) 0.20 0.55 -Area of Debridement (cm) - Length 0.5 1.1 -Area of Debridement (cm) - Width 0.4 0.5 -Total Square (Area) (cm) 0.20 0.55 -Tunneling No No -Undermining/Tunneling No No -Circular Undermining No No -Wound/Ulcer Outcome Not Healed Not Healed -Ulcer Cleansing Rinsed/ Rinsed/ Irrigated with Irrigated with Saline Saline -Foul Odor after Cleansing No No -Bioengineered Tissue Yes Yes -Type of Bioengineered Tissue Epifix 18mm Epifix 18mm Disc Disc -Expiration Date 12/02/27 12/02/27 -Product Lot Number [id number] -Percent Used 100 100 -Bleeding Controlled with Pressure Pressure -Treatment Response Procedure Procedure Tolerated Well Tolerated Well -Debridement - Subq, 1st 20sq cm No No -Apply Skin Sub - 1st 25 sq cm - Legs 1 1 -Epifix 18mm Disc 3 3 Pain Scale: 0-10 Numeric Is Patient Pain Free? Yes Yes WC - Nurse 3 - General Ulcer D/C NN Start: 04/11/23 08:16 Freq: Status: Active Protocol: Activity Type Activity Date Activity User E-sign Co-sign Detail Recorded Client Recorded Date Recorded By Document 04/11/23 09:01 DL Desktop 04/11/23 09:03 DL Document 04/18/23 08:59 KW Desktop 04/18/23 08:59 KW Document 05/02/23 08:55 KW Desktop 05/02/23 08:55 KW 04/11/23 04/18/23 05/02/23 09:01 08:59 08:55 Wound Care Center Nurse 3 #9 LT ANKLE -Other Dressing epi -Primary Dressing Covered/Secured with Dry Gauze & Dry Gauze & Dry Gauze & Roll Gauze, Roll Gauze, Roll Gauze, Secured with Secured with Secured with Tape Tape Tape #8 L Leon -Other Dressing epi -Primary Dressing Covered/Secured with Dry Gauze & Dry Gauze & Roll Gauze, Roll Gauze, Secured with Secured with Tape Tape Left -Tubular Bandage Single Layer Single Layer Single Layer -Size of Tubigrip Used Size D Size D Size D -Size D ($) 1 1 1 Treatment Response Procedure Tolerated Well Pain Scale: 0-10 Numeric Is Patient Pain Free? Yes Yes Yes WC - Visit Discharge Discharge Condition Stable Stable Ambulatory Status Ambulatory,Cane Ambulatory,Cane Transportation Private Auto Private Auto Accompanied by Medication Reconcilliation completed & No provided to patient/care provider Clinical Summary of Care Provided Yes Notes: dressing applied per ANNE MARIE Gillis today Assessment/Plan Assessment/Plan (1) Non-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: CODE(S): L97.322 - Non-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 layerexposed (2) Delayed wound healing: CODE(S): T14.8XXD - Other injury of unspecified body region, subsequent encounter (3) 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 layer exposed: CODE(S): L97.222 - 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 layer exposed (4) Venous insufficiency of both lower extremities: CODE(S): I87.2 - Venous insufficiency (chronic) (peripheral) (5) DM type 2 (diabetes mellitus, type 2): CODE(S): E11.9 - Type 2 diabetes mellitus without complications QUALIFIERS: Diabetes mellitus longterm insulin use: with longterm use Diabetes mellitus complication status: with other specified complication Qualified Code(s): E11.69 - Type 2 diabetes mellitus with other specified complication; Z79.4 - long-term (current) use of insulin (6) COPD (chronic obstructive pulmonary disease): CODE(S): J44.9 - Chronic obstructive pulmonary disease, unspecified (7) Hyperlipidemia: CODE(S): E78.5 - Hyperlipidemia, unspecified QUALIFIERS: Hyperlipidemia type: unspecified Qualified Code(s): E78.5 - Hyperlipidemia, unspecified (8) Chronic diastolic (congestive) heart failure: CODE(S): I50.32 - Chronic diastolic (congestive) heart failure (9) Longstanding persistent atrial fibrillation: CODE(S): I48.11 - Longstanding persistent atrial fibrillation PLAN: Plan Patient seen and evaluated I reviewed his previous treatment history by PCP. Patient had followed Dr. Anderson. Ulceration underwent debridement as noted in the clinical panel above. Ulceration to the left anterior lower extremity measures 0.1 cm x 0.1 cm x 0.1 cm. No signs of infection. EpiFix graft #9 applied to wound bed. Site dressedwith Adaptic touch and anchored with Steri-Strips then dressed with dry sterile dressing. He was instructed to not get the dressing wet. They are to change outer layer as needed. Left lateral ankle measures 1.2 cm x 0.9 cm x 0.4 cm. Wound underwent debridement as noted in clinical panel above. Sunni applied to the wound and they will change daily. Anterior leg wound does demonstrates decrease in size from previous visit and overall improving. Lateral ankle wound has decreased in size vs previous visit. Discussed continued diabetic diet to ensure proper glucose control. Recent A1c 6.4%. Discussed that this is a good standing for control of his diabetes and will aid in wound healing. Discussed with to aid in daily foot checks as her is blind. Discussed wearing shoe gear at all times and to never go barefoot. Socks include barefoot. They voiced understanding of this today. Recommend continued follow-up with PCP for continued diabetic management. Discussed adequate protein intake to continue to aid in wound healing. Also discussed Negrito supplementation to aid in wound healing. Discussed signs and symptoms with the pertaining to infection. Discussed if she notices increasing redness about the wound margin spreading up the leg, any purulent drainage from the wound site, increasing foul odor from the wound, or if he experiences fever greater than 101 degree, nausea, vomiting, chills that these are signs of progressing infection and he needs to report to the ED. They voiced understanding of this today. The following work up and care recommendations were made: Dressing: EpiFix, Adaptic touch, Steri-Strips, dry sterile dressing. Change outer dressing as needed Wash: Do not get wet Tissue growth optimization: EpiFix Offload: Ensure anterior leg is not bumped and discussed no picking at skin sites. Vascular: DP and PT pulses palpable with adequate capillary fill time. However skin demonstrates trophic changes consistent with microvascular disease. Edema: No edema currently, has history of chronic venous stasis. Recommend continued compression stocking. Infection: No signs of infection. Pain: May take [id number] Tylenol extra strength for discomfort. Host factors: DM type II, chronic venous stasis, CHF, COPD, blindness I answered all the patient's questions. To return to the wound healing center in 1 week or call sooner if the patient has any questions or concerns. 05/02/23917 <Electronically signed by Alejandro Talbot DPM> Cosigner Signature (if applicable): CC: ~ Signed [facility] [place] Work Phone: [phone] Progress note Author Alejandro Talbot [facility] [place] April 18, 2023 9:36am Note Date/Time April 18, 2023 9:36am [facility] [address] [place] [address] Progress Note - Wound Care 04/18/23929 MR#: [id number] Acct: [id number] Name: ARMIN TURCIOS Rep #:[id number] 1950 73 From: Alejandro bar DPM PCP: Dr. Jessi Olguin MD Status:REG RCR Location: History of Present Illness Date of Service: 04/18/23 Chief Complaint: Left Leg Ulcer History of Wound: Mr. Turcios is a 72-year-old with PMHx of of diabetes mellitus type 2, venous insufficiency bilateral lower extremity, history of multiple ulcerations, HTN, HLD, COPD, A-fib, CHF. He presents back to the woundcare center today accompanied by his for nonhealing left lower extremity ulceration. states he has either bumped his leg on something or picked at some skin on the front of his leg creating a new wound. They state they have been following with Dr. Anderson in [place] as well as PCP Dr. Olguin. They stateoccasional use of mupirocin topical ointment but otherwise have not been applying dressings to the site. They state the wound has been present for a fewweeks and has not made much progress and thus they were referred to the wound care center for continued wound healing. He denies N/V/F/chills. He has no further complaints. Subjective Subjective Patient is a 73-year-old male who follows up to the wound care center today for a left lower extremity ulceration x 2. His states she has left graft in place and is only changing outer dressings as needed. She does state that he does not keep feet elevated as much as he should. He denies constitutional symptoms today. Denies further complaints today. Objective Data Objective Data Vital Signs: Vital Signs Temp Pulse Resp BP 97.4 F L 98 16 135/71 H 04/18/23 08:01 04/18/23 08:01 04/18/23 08:01 04/18/23 08:01 Weight: 114.015 kg Body Mass Index (BMI) 31.4 Physical Exam Const alert, oriented x3 and no apparent distress General Appearance: cooperative HEENT normocephalic Eyes General Eye: normal appearance of both eyes Neck General: normal visual inspection Lymph Lymphatic: no lymphadenopathy noted and no lymphedema noted Resp normal respiratory effort Cardio regular rate and regular rhythm Extremity normal capillary refill, no joint enlargement, no calf tenderness and no pedal edema Extremity Narrative: DP pulses palpable and PT pulses weakly palpable bilateral. CFT less than 3 seconds to the digits bilateral. Hair growth absent to digits of foot bilateral. Dermatological: Skin is thin and demonstrating trophic changes bilateral lower extremity. Skin is excessively dry with peeling/flaking consistent with diabetic autonomic neuropathy and microvascular disease. There is an ulcerationnoted to the anterior aspect overlying the tibial crest with healthy granular base. Ulceration noted to the lateral ankle with mixed fibrogranular layer. Nosigns of infection. Musculoskeletal: Muscle strength 5 of 5 age-appropriate. Decreased ankle range of motion in dorsiflexion with the knee extended without pain or crepitus bilateral. Decreased range of motion of the first metatarsophalangeal joint without pain or crepitus bilateral. There is hammertoe deformity of lesser digits bilateral without pain to palpation. Skin no rashes or lesions noted, skin turgor normal and no jaundice Neuro moves all extremities Debridement Note Debridement Note Wound debrided: Left anterior lower extremity Laterality: Left Wound Grade/Stage: Miguel stage I Type of Debridement: Excisional debridement Anesthesia Used: 5% Lidocaine Gel Depth: Down to and including healthy tissue and in the subcutaneous layer Percentage of wound debrided: 100 Instrument Used: 5mm curette Tissue Removed: Fibrous, devitalized subcutaneous, biofilm, slough Severity: Fat Layer Exposed Amount of bleeding with debridement: Mild Bleeding Controlled with: Compression and gauze Patient tolerated procedure: Patient tolerated procedure well Post-Debridement Measurements and Additional Note: Post-Debridement Measurements/Treatment - Nurse 1 - General Ulcer Assessment Start: 04/11/23 08:16 Freq: Status: Active Protocol: OLIVIA Activity Type Activity Date Activity User E-sign Co-sign Detail Recorded Client Recorded Date Recorded By Document 04/11/23 08:16 DL Desktop 04/11/23 08:26 DL Document 04/18/23 08:01 NRL Desktop 04/18/23 08:14 NRL 04/11/23 04/18/23 08:16 08:01 - Today's Visit Information Type of service Follow-up Visit Follow-up Visit (Physician/DOG TRAINER (Physician/DOG TRAINER ) ) Arrival Mode Ambulatory Ambulatory,Cane Transfer Assistance None Patient Identification Verified (Name & Yes Yes ) Patient Requires Transmission-Based No Precautions Finger Stick Blood Sugar(mg/dl) (if 197 indicated): Blood Sugar Stated by Patient Height and Weight Body Mass Index (BMI) 31.4 31.4 BMI Classification Obese Obese Vital Signs Temperature (97.8 F-99.1 F) 97.6 F L 97.4 F L Temperature Source Temporal Temporal Pulse Rate (60-100) 91 98 Pulse Location Monitor Monitor Respiratory Rate (12-18) 18 16 Respiratory rate source Observation Observation Blood Pressure (90/60-120/80) 134/74 H 135/71 H Blood Pressure Mean (mm Hg) 94 92 Source Monitor Monitor Position Sitting Blood Pressure Location Left Arm History Since Last Visit- (Skip if this is Patient's initial visit) Have you changed medications since your No No last visit? Any new allergies or adverse reactions No No Had a fall/change in ADL's that may No No increase risk of falls Signs or symptoms of abuse and/or No neglect since last visit Have you been in the hospital since your No No last visit? Has dressing in place as prescribed Yes Yes Has compression in place as prescribed Yes Yes Has offloadiing in place as prescribed Yes N/A Experienced any changes in pain level or No No management Left Footwear Regular Shoe Regular Shoe Right Footwear Regular Shoe Regular Shoe Pain Scale: 0-10 Numeric Is Patient Pain Free? Yes Yes WC - Nurse 1 - General Ulcer Measurement Start: 04/11/23 08:16 Freq: Status: Active Protocol: Activity Type Activity Date Activity User E-sign Co-sign Detail Recorded Client Recorded Date Recorded By Document 04/11/23 08:16 DL Desktop 04/11/23 08:26 DL Document 04/18/23 08:01 NRL Desktop 04/18/23 08:14 NRL 04/11/23 04/18/23 08:16 08:01 Wound Center Nurse 1 #9 LT ANKLE -Combined with other wound No -Current Size (cm) - Length 1.4 -Current Size (cm) - Width 0.8 -Current Size (cm) - Depth 0.3 -Total Square Cm 1.12 -Epithelialization Small 1-33% -Undermining/Tunneling No -Circular Undermining No -Exudate Amt Small Medium -Exudate Type Serosanguineous Serosanguineous -Wound Margin Distinct, Distinct, Outline Outline Attached Attached -Granulation Amt Small (1-33%) Small (1-33%) -Granulation Quality [place] -Slough/Fibrin Yes -Necrosis Amt Large (67-100%) Medium (34-66%) -Necrotic Tissue Type Adherent Slough Adherent Slough -Structure Exposed N/A -Texture (Jada-wound Skin Appearance) Scarring Assessed -Moisture (Jada-wound Skin Appearance) Dry/Scaly Assessed -Color (Jada-wound Skin Appearance) Hemosiderin Assessed Staining -Temperature (Jada-wound Skin No Abnormality No Abnormality Appearance) (Pt Warm) (Pt Warm) -Tenderness on Palpation (Jada-wound No No Skin Appearance) -Ulcer Cleansing Soap and Water Wound Cleanser -Foul Odor after Cleansing No No -Anesthetic Used 5% Lidocaine 5% Lidocaine Gel Gel #8 L Leon -Combined with other wound No -Current Size (cm) - Length 0.1 -Current Size (cm) - Width 0.1 -Current Size (cm) - Depth 0.1 -Total Square Cm 0.01 -Epithelialization Small 1-33% -Tunneling No -Undermining/Tunneling No -Exudate Amt None Present Medium -Exudate Type Serosanguineous -Wound Margin Thickened Distinct, Outline Attached -Granulation Amt None Present (0 Small (1-33%) %) -Granulation Quality [place] -Slough/Fibrin Yes -Necrosis Amt Medium (34-66%) Medium (34-66%) -Necrotic Tissue Type Eschar Adherent Slough -Structure Exposed N/A -Texture (Jada-wound Skin Appearance) Scarring Assessed -Moisture (Jada-wound Skin Appearance) Dry/Scaly Assessed -Color (Jada-wound Skin Appearance) Hemosiderin Assessed Staining -Temperature (Jada-wound Skin No Abnormality No Abnormality Appearance) (Pt Warm) (Pt Warm) -Tenderness on Palpation (Jada-wound No No Skin Appearance) -Ulcer Cleansing Soap and Water Wound Cleanser -Foul Odor after Cleansing No No -Anesthetic Used 5% Lidocaine 5% Lidocaine Gel Gel Left Calf (cm) 38 40.5 Left Ankle (cm) 21.6 22.0 WC - Nurse 2 - General Ulcer CM Notes Start: 04/11/23 08:16 Freq: Status: Active Protocol: Activity Type Activity Date Activity User E-sign Co-sign Detail Recorded Client Recorded Date Recorded By Document 04/11/23 16:38 PL [id number] 04/11/23 16:41 PL 04/11/23 16:38 Wound Center Nurse 2 #9 LT ANKLE -Time 08:41 -Correct Patient Yes -Correct Side, Site, Position Yes -Correct Procedure Yes -Procedure Performed Yes -Type of Procedure Debridement -Clinical Debridement Subcutaneous -Tissue Removed Subcutaneous -Post Debridement (cm) - Length 1.5 -Post Debridement (cm) - Width 1.0 -Post Debridement (cm) - Depth 0.4 -Total Square (Post) (cm) 1.50 -Area of Debridement (cm) - Length 1.5 -Area of Debridement (cm) - Width 1.0 -Total Square (Area) (cm) 1.50 -Tunneling No -Undermining/Tunneling No -Circular Undermining No -Wound/Ulcer Outcome Not Healed -Ulcer Cleansing Rinsed/ Irrigated with Saline -Foul Odor after Cleansing No -Bioengineered Tissue No -Bleeding Controlled with Pressure -Treatment Response Procedure Tolerated Well -Debridement - Subq, 1st 20sq cm Yes #8 L Leon -Time 08:41 -Correct Patient Yes -Correct Side, Site, Position Yes -Correct Procedure Yes -Procedure Performed Yes -Type of Procedure Debridement -Clinical Debridement Subcutaneous -Tissue Removed Subcutaneous -Post Debridement (cm) - Length 0.5 -Post Debridement (cm) - Width 0.4 -Post Debridement (cm) - Depth 0.1 -Total Square (Post) (cm) 0.20 -Area of Debridement (cm) - Length 0.5 -Area of Debridement (cm) - Width 0.4 -Total Square (Area) (cm) 0.20 -Tunneling No -Undermining/Tunneling No -Circular Undermining No -Wound/Ulcer Outcome Not Healed -Ulcer Cleansing Rinsed/ Irrigated with Saline -Foul Odor after Cleansing No -Bioengineered Tissue Yes -Type of Bioengineered Tissue Epifix 18mm Disc -Expiration Date 12/02/27 -Product Lot Number [id number] -Percent Used 100 -Bleeding Controlled with Pressure -Treatment Response Procedure Tolerated Well -Debridement - Subq, 1st 20sq cm No -Apply Skin Sub - 1st 25 sq cm - Legs 1 -Epifix 18mm Disc 3 Pain Scale: 0-10 Numeric Is Patient Pain Free? Yes WC - Nurse 3 - General Ulcer D/C NN Start: 04/11/23 08:16 Freq: Status: Active Protocol: Activity Type Activity Date Activity User E-sign Co-sign Detail Recorded Client Recorded Date Recorded By Document 04/11/23 09:01 DL Desktop 04/11/23 09:03 DL Document 04/18/23 08:59 KW Desktop 04/18/23 08:59 KW 04/11/23 04/18/23 09:01 08:59 Wound Care Center Nurse 3 #9 LT ANKLE -Other Dressing epi -Primary Dressing Covered/Secured with Dry Gauze & Dry Gauze & Roll Gauze, Roll Gauze, Secured with Secured with Tape Tape #8 L Leon -Other Dressing epi -Primary Dressing Covered/Secured with Dry Gauze & Dry Gauze & Roll Gauze, Roll Gauze, Secured with Secured with Tape Tape Left -Tubular Bandage Single Layer Single Layer -Size of Tubigrip Used Size D Size D -Size D ($) 1 1 Treatment Response Procedure Tolerated Well Pain Scale: 0-10 Numeric Is Patient Pain Free? Yes Yes WC - Visit Discharge Discharge Condition Stable Ambulatory Status Ambulatory,Cane Transportation Private Auto Accompanied by Notes: dressing applied per ANNE MARIE Gillis today Additional Wound Wound debrided: Left lateral ankle Laterality: Left Wound Grade/Stage: Miguel stage I Type of Debridement: Excisional debridement Anesthesia Used: 5% Lidocaine Gel Depth: Down to and including healthy tissue and in the subcutaneous layer Percentage of wound debrided: 100 Instrument Used: 5mm curette Tissue Removed: Fibrous, devitalized subcutaneous, biofilm, slough Severity: Fat Layer Exposed Amount of bleeding with debridement: Mild Bleeding Controlled with: Compression and gauze Patient tolerated procedure: Patient tolerated procedure well Assessment/Plan Assessment/Plan (1) Non-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: CODE(S): L97.322 - Non-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 layerexposed (2) Delayed wound healing: CODE(S): T14.8XXD - Other injury of unspecified body region, subsequent encounter (3) 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 layer exposed: CODE(S): L97.222 - 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 layer exposed (4) Venous insufficiency of both lower extremities: CODE(S): I87.2 - Venous insufficiency (chronic) (peripheral) (5) DM type 2 (diabetes mellitus, type 2): CODE(S): E11.9 - Type 2 diabetes mellitus without complications QUALIFIERS: Diabetes mellitus longterm insulin use: with longterm use Diabetes mellitus complication status: with other specified complication Qualified Code(s): E11.69 - Type 2 diabetes mellitus with other specified complication; Z79.4 - long-term (current) use of insulin (6) COPD (chronic obstructive pulmonary disease): CODE(S): J44.9 - Chronic obstructive pulmonary disease, unspecified (7) Hyperlipidemia: CODE(S): E78.5 - Hyperlipidemia, unspecified QUALIFIERS: Hyperlipidemia type: unspecified Qualified Code(s): E78.5 - Hyperlipidemia, unspecified (8) Chronic diastolic (congestive) heart failure: CODE(S): I50.32 - Chronic diastolic (congestive) heart failure (9) Longstanding persistent atrial fibrillation: CODE(S): I48.11 - Longstanding persistent atrial fibrillation PLAN: Plan Patient seen and evaluated I reviewed his previous treatment history by PCP. Patient had followed Dr. Anderson. Ulceration underwent debridement as noted in the clinical panel above. Ulceration to the left anterior lower extremity measures 1.1 cm x 0.4 cm x 0.1 cm. No signs of infection. EpiFix graft #8 applied to wound bed. Site dressedwith Adaptic touch and anchored with Steri-Strips then dressed with dry sterile dressing. He was instructed to not get the dressing wet. They are to change outer layer as needed. Left lateral ankle measures 1.2 cm x 1.0 cm x 0.4 cm. Wound underwent debridement as noted in clinical panel above. Sunni applied to the wound and they will change daily. Anterior leg wound does demonstrate slight increase with superficial skin tear in size from previous visit but overall improving. Lateral ankle wound has decreased in size vs previous visit. Discussed continued diabetic diet to ensure proper glucose control. Recent A1c 6.4%. Discussed that this is a good standing for control of his diabetes and will aid in wound healing. Discussed with to aid in daily foot checks as her is blind. Discussed wearing shoe gear at all times and to never go barefoot. Socks include barefoot. They voiced understanding of this today. Recommend continued follow-up with PCP for continued diabetic management. Discussed adequate protein intake to continue to aid in wound healing. Also discussed Negrito supplementation to aid in wound healing. Discussed signs and symptoms with the pertaining to infection. Discussed if she notices increasing redness about the wound margin spreading up the leg, any purulent drainage from the wound site, increasing foul odor from the wound, or if he experiences fever greater than 101 degree, nausea, vomiting, chills that these are signs of progressing infection and he needs to report to the ED. They voiced understanding of this today. The following work up and care recommendations were made: Dressing: EpiFix, Adaptic touch, Steri-Strips, dry sterile dressing. Change outer dressing as needed Wash: Do not get wet Tissue growth optimization: EpiFix Offload: Ensure anterior leg is not bumped and discussed no picking at skin sites. Vascular: DP and PT pulses palpable with adequate capillary fill time. However skin demonstrates trophic changes consistent with microvascular disease. Edema: No edema currently, has history of chronic venous stasis. Recommend continued compression stocking. Infection: No signs of infection. Pain: May take [id number] Tylenol extra strength for discomfort. Host factors: DM type II, chronic venous stasis, CHF, COPD, blindness I answered all the patient's questions. To return to the wound healing center in 2 weeks or call sooner if the patient has any questions or concerns. 04/18/23935 <Electronically signed by Alejadnro Talbot DPM> Cosigner Signature (if applicable): CC: ~ Signed [facility] Work Phone: [phone] [phone] Progress note Author Alejandro Talbot [facility] April 11, 2023 1:14pm Note Date/Time April 11, 2023 9 :25am [facility] [address] [place] [address] Progress Note - Wound Care 04/11/23920 MR#: [id number] Acct: [id number] Name: ARMIN TURCIOS Rep #:[id number] : 1950 73 From: Alejandro bar DPM PCP: Dr. Jessi Olguin MD Status:REG RCR Location: History of Present Illness Date of Service: 04/11/23 Chief Complaint: Left Leg Ulcer History of Wound: Mr. Turcios is a 72-year-old with PMHx of of diabetes mellitus type 2, venous insufficiency bilateral lower extremity, history of multiple ulcerations, HTN, HLD, COPD, A-fib, CHF. He presents back to the woundcare center today accompanied by his for nonhealing left lower extremity ulceration. states he has either bumped his leg on something or picked at some skin on the front of his leg creating a new wound. They state they have been following with Dr. Anderson in [place] as well as PCP Dr. Olguin. They stateoccasional use of mupirocin topical ointment but otherwise have not been applying dressings to the site. They state the wound has been present for a fewweeks and has not made much progress and thus they were referred to the wound care center for continued wound healing. He denies N/V/F/chills. He has no further complaints. Subjective Subjective Patient is a 73-year-old male who follows up to the wound care center today for a left lower extremity ulceration x 2. His states she has left graft in place and is only changing outer dressings as needed. He denies constitutional symptoms today. Denies further complaints today. Objective Data Objective Data Vital Signs: Vital Signs Temp Pulse Resp BP 97.6 F L 91 18 134/74 H 04/11/23 08:16 04/11/23 08:16 04/11/23 08:16 04/11/23 08:16 Weight: 114.015 kg Body Mass Index (BMI) 31.4 Physical Exam Const alert, oriented x3 and no apparent distress General Appearance: cooperative HEENT normocephalic Eyes General Eye: normal appearance of both eyes Neck General: normal visual inspection Lymph Lymphatic: no lymphadenopathy noted and no lymphedema noted Resp normal respiratory effort Cardio regular rate and regular rhythm Extremity normal capillary refill, no joint enlargement, no calf tenderness and no pedal edema Extremity Narrative: DP pulses palpable and PT pulses weakly palpable bilateral. CFT less than 3 seconds to the digits bilateral. Hair growth absent to digits of foot bilateral. Dermatological: Skin is thin and demonstrating trophic changes bilateral lower extremity. Skin is excessively dry with peeling/flaking consistent with diabetic autonomic neuropathy and microvascular disease. There is an ulceration notedto the anterior aspect overlying the tibial crest with healthy granular base. Ulceration noted to the lateral ankle with mixed fibrogranular layer. No signs of infection. Musculoskeletal: Muscle strength 5 of 5 age-appropriate. Decreased ankle range of motion in dorsiflexion with the knee extended without pain or crepitus bilateral. Decreased range of motion of the first metatarsophalangeal joint without pain or crepitus bilateral. There is hammertoe deformity of lesser digits bilateral without pain to palpation. Skin no rashes or lesions noted, skin turgor normal and no jaundice Neuro moves all extremities Debridement Note Debridement Note Wound debrided: Left anterior leg Laterality: Left Wound Grade/Stage: Miguel stage I Type of Debridement: Excisional debridement Anesthesia Used: 5% Lidocaine Gel Depth: Down to and including healthy tissue and in the subcutaneous layer Percentage of wound debrided: 100 Instrument Used: 5mm curette Tissue Removed: Fibrous, devitalized subcutaneous, biofilm, slough Severity: Fat Layer Exposed Amount of bleeding with debridement: Mild Bleeding Controlled with: Compression and gauze Patient tolerated procedure: Patient tolerated procedure well Post-Debridement Measurements and Additional Note: Post-Debridement Measurements/Treatment - Nurse 1 - General Ulcer Assessment Start: 04/11/23 08:16 Freq: Status: Active Protocol: OLIVIA Activity Type Activity Date Activity User E-sign Co-sign Detail Recorded Client Recorded Date Recorded By Document 04/11/23 08:16 DL Desktop 04/11/23 08:26 DL 04/11/23 08:16 WC - Today's Visit Information Type of service Follow-up Visit (Physician/DOG TRAINER ) Arrival Mode Ambulatory Transfer Assistance None Patient Identification Verified (Name & Yes ) Patient Requires Transmission-Based No Precautions Finger Stick Blood Sugar(mg/dl) (if 197 indicated): Blood Sugar Stated by Patient Height and Weight Body Mass Index (BMI) 31.4 BMI Classification Obese Vital Signs Temperature (97.8 F-99.1 F) 97.6 F L Temperature Source Temporal Pulse Rate (60-100) 91 Pulse Location Monitor Respiratory Rate (12-18) 18 Respiratory rate source Observation Blood Pressure (90/60-120/80) 134/74 H Blood Pressure Mean (mm Hg) 94 Source Monitor History Since Last Visit- (Skip if this is Patient's initial visit) Have you changed medications since your No last visit? Any new allergies or adverse reactions No Had a fall/change in ADL's that may No increase risk of falls Signs or symptoms of abuse and/or No neglect since last visit Have you been in the hospital since your No last visit? Has dressing in place as prescribed Yes Has compression in place as prescribed Yes Has offloadiing in place as prescribed Yes Experienced any changes in pain level or No management Left Footwear Regular Shoe Right Footwear Regular Shoe Pain Scale: 0-10 Numeric Is Patient Pain Free? Yes - Nurse 1 - General Ulcer Measurement Start: 04/11/23 08:16 Freq: Status: Active Protocol: Activity Type Activity Date Activity User E-sign Co-sign Detail Recorded Client Recorded Date Recorded By Document 04/11/23 08:16 DL [employer] 04/11/23 08:26 DL 04/11/23 08:16 Wound Center Nurse 1 #9 LT ANKLE -Current Size (cm) - Length 1.4 -Current Size (cm) - Width 0.8 -Current Size (cm) - Depth 0.3 -Total Square Cm 1.12 -Exudate Amt Small -Exudate Type Serosanguineous -Wound Margin Distinct, Outline Attached -Granulation Amt Small (1-33%) -Granulation Quality [place] -Necrosis Amt Large (67-100%) -Necrotic Tissue Type Adherent Slough -Structure Exposed N/A -Texture (Jada-wound Skin Appearance) Scarring -Moisture (Jada-wound Skin Appearance) Dry/Scaly -Color (Jada-wound Skin Appearance) Hemosiderin Staining -Temperature (Jada-wound Skin No Abnormality Appearance) (Pt Warm) -Tenderness on Palpation (Jada-wound No Skin Appearance) -Ulcer Cleansing Soap and Water -Foul Odor after Cleansing No -Anesthetic Used 5% Lidocaine Gel #8 L Leon -Current Size (cm) - Length 0.1 -Current Size (cm) - Width 0.1 -Current Size (cm) - Depth 0.1 -Total Square Cm 0.01 -Exudate Amt None Present -Wound Margin Thickened -Granulation Amt None Present (0 %) -Necrosis Amt Medium (34-66%) -Necrotic Tissue Type Eschar -Structure Exposed N/A -Texture (Jada-wound Skin Appearance) Scarring -Moisture (Jada-wound Skin Appearance) Dry/Scaly -Color (Jada-wound Skin Appearance) Hemosiderin Staining -Temperature (Jada-wound Skin No Abnormality Appearance) (Pt Warm) -Tenderness on Palpation (Jada-wound No Skin Appearance) -Ulcer Cleansing Soap and Water -Foul Odor after Cleansing No -Anesthetic Used 5% Lidocaine Gel Left Calf (cm) 38 Left Ankle (cm) 21.6 WC - Nurse 3 - General Ulcer D/C NN Start: 04/11/23 08:16 Freq: Status: Active Protocol: Activity Type Activity Date Activity User E-sign Co-sign Detail Recorded Client Recorded Date Recorded By Document 04/11/23 09:01 DL Desktop 04/11/23 09:03 DL 04/11/23 09:01 Wound Care Center Nurse 3 #9 LT ANKLE -Other Dressing epi -Primary Dressing Covered/Secured with Dry Gauze & Roll Gauze, Secured with Tape #8 L Leon -Other Dressing epi -Primary Dressing Covered/Secured with Dry Gauze & Roll Gauze, Secured with Tape Left -Tubular Bandage Single Layer -Size of Tubigrip Used Size D -Size D ($) 1 Treatment Response Procedure Tolerated Well Pain Scale: 0-10 Numeric Is Patient Pain Free? Yes WC - Visit Discharge Discharge Condition Stable Ambulatory Status Ambulatory,Cane Transportation Private Auto Accompanied by Notes: dressing applied per ANNE MARIE Gillis today Additional Wound Wound debrided: Left lateral ankle Laterality: Left Wound Grade/Stage: Miguel stage I Type of Debridement: Excisional debridement Anesthesia Used: 5% Lidocaine Gel Depth: Down to and including healthy tissue and in the subcutaneous layer Percentage of wound debrided: 100 Instrument Used: 5mm curette Tissue Removed: Fibrous, devitalized subcutaneous, biofilm, slough Severity: Fat Layer Exposed Amount of bleeding with debridement: Mild Bleeding Controlled with: Compression and gauze Patient tolerated procedure: Patient tolerated procedure well Assessment/Plan Assessment/Plan (1) Non-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: CODE(S): L97.322 - Non-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 layerexposed (2) Delayed wound healing: CODE(S): T14.8XXD - Other injury of unspecified body region, subsequent encounter (3) 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 layer exposed: CODE(S): L97.222 - 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 layer exposed (4) Venous insufficiency of both lower extremities: CODE(S): I87.2 - Venous insufficiency (chronic) (peripheral) (5) DM type 2 (diabetes mellitus, type 2): CODE(S): E11.9 - Type 2 diabetes mellitus without complications QUALIFIERS: Diabetes mellitus complication status: with other specified complication 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: with 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 use Qualified Code(s): E11.69 - Type 2 diabetes mellitus with other specified complication; Z79.4 - long-term (current) use of insulin (6) COPD (chronic obstructive pulmonary disease): CODE(S): J44.9 - Chronic obstructive pulmonary disease, unspecified (7) Hyperlipidemia: CODE(S): E78.5 - Hyperlipidemia, unspecified QUALIFIERS: Hyperlipidemia type: unspecified Qualified Code(s): E78.5 - Hyperlipidemia, unspecified (8) Chronic diastolic (congestive) heart failure: CODE(S): I50.32 - Chronic diastolic (congestive) heart failure (9) Longstanding persistent atrial fibrillation: CODE(S): I48.11 - Longstanding persistent atrial fibrillation PLAN: Plan Patient seen and evaluated I reviewed his previous treatment history by PCP. Patient had followed Dr. Anderson. Ulceration underwent debridement as noted in the clinical panel above. Ulceration to the left anterior lower extremity measures 0.5 cm x 0.4 cm x 0.1 cm. No signs of infection. EpiFix graft #7 applied to wound bed. Site dressedwith Adaptic touch and anchored with Steri-Strips then dressed with dry sterile dressing. He was instructed to not get the dressing wet. They are to change outer layer as needed. Left lateral ankle measures 1.5 cm x 1.0 cm x 0.4 cm. Wound underwent debridement as noted in clinical panel above. Sunni applied to the wound and they will change daily. Anterior leg wound does demonstrate reduction in size from previous visit. Lateral ankle wound has increased in size vs previous visit. Discussed continued diabetic diet to ensure proper glucose control. Recent A1c 6.4%. Discussed that this is a good standing for control of his diabetes and will aid in wound healing. Discussed with to aid in daily foot checks as her is blind. Discussed wearing shoe gear at all times and to never go barefoot. Socks include barefoot. They voiced understanding of this today. Recommend continued follow-up with PCP for continued diabetic management. Discussed adequate protein intake to continue to aid in wound healing. Also discussed Negrito supplementation to aid in wound healing. Discussed signs and symptoms with the pertaining to infection. Discussed if she notices increasing redness about the wound margin spreading up the leg, any purulent drainage from the wound site, increasing foul odor from the wound, or if he experiences fever greater than 101 degree, nausea, vomiting, chills that these are signs of progressing infection and he needs to report to the ED. They voiced understanding of this today. The following work up and care recommendations were made: Dressing: EpiFix, Adaptic touch, Steri-Strips, dry sterile dressing. Change outer dressing as needed Wash: Do not get wet Tissue growth optimization: EpiFix Offload: Ensure anterior leg is not bumped and discussed no picking at skin sites. Vascular: DP and PT pulses palpable with adequate capillary fill time. However skin demonstrates trophic changes consistent with microvascular disease. Edema: No edema currently, has history of chronic venous stasis. Recommend continued compression stocking. Infection: No signs of infection. Pain: May take [id number] Tylenol extra strength for discomfort. Host factors: DM type II, chronic venous stasis, CHF, COPD, blindness I answered all the patient's questions. To return to the wound healing center in 1 week or call sooner if the patient has any questions or concerns. 04/11/23 1314 <Electronically signed by Alejandro Talbot DPM> Cosigner Signature (if applicable): CC: ~ Signed [facility] Work Phone: [phone] Progress note Author Alejandro Talbot [facility] March 28, 2023 12:23pm Note Date/Time March 28, 2023 8 :45am [facility] [address] [place] [address] Progress Note - Wound Care 03/28/23 0844 MR#: [id number] Acct: [id number] Name: ARMIN TURCIOS Rep #:[id number] : 1950 73 From: Alejandro bar DPM PCP: Dr. Jessi Olguin MD Status:REG RCR Location: History of Present Illness Date of Service: 03/28/23 Chief Complaint: Left Leg Ulcer History of Wound: Mr. Turcios is a 72-year-old with PMHx of of diabetes mellitus type 2, venous insufficiency bilateral lower extremity, history of multiple ulcerations, HTN, HLD, COPD, A-fib, CHF. He presents back to the woundcare center today accompanied by his for nonhealing left lower extremity ulceration. states he has either bumped his leg on something or picked at some skin on the front of his leg creating a new wound. They state they have been following with Dr. Anderson in [place] as well as PCP Dr. Olguin. They stateoccasional use of mupirocin topical ointment but otherwise have not been applying dressings to the site. They state the wound has been present for a fewweeks and has not made much progress and thus they were referred to the wound care center for continued wound healing. He denies N/V/F/chills. He has no further complaints. Subjective Subjective Patient is a 72-year-old male who follows up to the wound care center today for a left lower extremity ulceration x 2. His states she has left graft in place and is only changing outer dressings as needed. He denies constitutional symptoms today. Denies further complaints today. Objective Data Objective Data Vital Signs: Vital Signs Temp Pulse Resp BP O2 Del Method 97.6 F L 84 18 123/72 H Room Air 03/14/23 08:41 03/28/23 08:17 03/28/23 08:17 03/28/23 08:17 03/28/23 08:17 Oxygen Delivery Method Room Air Weight: 114.015 kg Body Mass Index (BMI) 31.4 Physical Exam Const alert, oriented x3 and no apparent distress General Appearance: cooperative HEENT normocephalic Eyes Eyes Narrative: Blind, wearing dark glasses Neck General: normal visual inspection Lymph Lymphatic: no lymphadenopathy noted and no lymphedema noted Resp normal respiratory effort Cardio regular rate and regular rhythm Extremity normal capillary refill, no joint enlargement, no calf tenderness and no pedal edema Extremity Narrative: DP pulses palpable and PT pulses weakly palpable bilateral. CFT less than 3 seconds to the digits bilateral. Hair growth absent to digits of foot bilateral. Dermatological: Skin is thin and demonstrating trophic changes bilateral lower extremity. Skin is excessively dry with peeling/flaking consistent with diabetic autonomic neuropathy and microvascular disease. There is an ulcerationnoted to the anterior aspect overlying the tibial crest with 80% mixed yellow fibrotic tissue and 20% red granular tissue at wound margin. There is crusting secondary to serous drainage at wound margin. Musculoskeletal: Muscle strength 5 of 5 age-appropriate. Decreased ankle range of motion in dorsiflexion with the knee extended without pain or crepitus bilateral. Decreased range of motion of the first metatarsophalangeal joint without pain or crepitus bilateral. There is hammertoe deformity of lesser digits bilateral without pain to palpation. Skin no rashes or lesions noted, skin turgor normal and no jaundice Neuro moves all extremities Debridement Note Debridement Note Wound debrided: Left lateral ankle Laterality: Left Wound Grade/Stage: Miguel stage I Type of Debridement: Excisional debridement Anesthesia Used: 5% Lidocaine Gel Depth: Down to and including healthy tissue and in the subcutaneous layer Percentage of wound debrided: 100 Instrument Used: 5mm curette Tissue Removed: Fibrous, devitalized subcutaneous, biofilm, slough Severity: Fat Layer Exposed Amount of bleeding with debridement: Mild Bleeding Controlled with: Compression and gauze Patient tolerated procedure: Patient tolerated procedure well Post-Debridement Measurements and Additional Note: Post-Debridement Measurements/Treatment WC - Nurse 1 - General Ulcer Assessment Start: 03/07/23 08:25 Freq: Status: Active Protocol: WC.LOWEXT Activity Type Activity Date Activity User E-sign Co-sign Detail Recorded Client Recorded Date Recorded By Document 03/07/23 08:26 KW Desktop 03/07/23 08:39 KW Document 03/14/23 08:41 PL Desktop 03/14/23 08:42 PL Document 03/21/23 08:42 KW Desktop 03/21/23 08:47 KW Document 03/28/23 08:17 KW Desktop 03/28/23 08:37 KW 03/07/23 03/14/23 03/21/23 08:26 08:41 08:42 WC - Today's Visit Information Type of service Follow-up Visit Follow-up Visit Follow-up Visit (Physician/DOG TRAINER (Physician/DOG TRAINER (Physician/DOG TRAINER ) ) ) Arrival Mode Ambulatory,Cane Ambulatory,Cane Ambulatory,Cane Transfer Assistance None Accompanied by Patient Identification Verified (Name & Yes Yes Yes ) Patient Requires Transmission-Based No Precautions Height and Weight Body Mass Index (BMI) 31.4 31.4 31.4 BMI Classification Obese Obese Obese Vital Signs Temperature (97.8 F-99.1 F) 96.7 F L 97.6 F L Temperature Source Temporal Temporal Pulse Rate (60-100) 91 95 87 Pulse Location Monitor Monitor Respiratory Rate (12-18) 18 18 18 Respiratory rate source Observation Observation Oxygen Delivery Method Room Air Room Air Blood Pressure (90/60-120/80) 138/78 H 133/65 H 135/75 H Blood Pressure Mean (mm Hg) 98 87 95 Source Monitor Monitor Position Sitting Semi-Fowlers Blood Pressure Location Left Arm Left Arm History Since Last Visit- (Skip if this is Patient's initial visit) Have you changed medications since your No No No last visit? Any new allergies or adverse reactions No No No Had a fall/change in ADL's that may No No No increase risk of falls Signs or symptoms of abuse and/or No No No neglect since last visit Have you been in the hospital since your No No No last visit? Has dressing in place as prescribed Yes Yes Yes Has compression in place as prescribed Yes Yes Yes Has offloadiing in place as prescribed No N/A No Experienced any changes in pain level or No No No management Left Footwear Regular Shoe Regular Shoe Right Footwear Regular Shoe Regular Shoe Pain Scale: 0-10 Numeric Is Patient Pain Free? Yes Yes Yes 03/28/23 08:17 WC - Today's Visit Information Type of service Follow-up Visit (Physician/DOG TRAINER ) Arrival Mode Ambulatory,Cane Transfer Assistance Accompanied by Patient Identification Verified (Name & Yes ) Patient Requires Transmission-Based Precautions Height and Weight Body Mass Index (BMI) 31.4 BMI Classification Obese Vital Signs Temperature (97.8 F-99.1 F) Temperature Source Pulse Rate (60-100) 84 Pulse Location Monitor Respiratory Rate (12-18) 18 Respiratory rate source Observation Oxygen Delivery Method Room Air Blood Pressure (90/60-120/80) 123/72 H Blood Pressure Mean (mm Hg) 89 Source Monitor Position Sitting Blood Pressure Location Left Arm History Since Last Visit- (Skip if this is Patient's initial visit) Have you changed medications since your No last visit? Any new allergies or adverse reactions No Had a fall/change in ADL's that may No increase risk of falls Signs or symptoms of abuse and/or No neglect since last visit Have you been in the hospital since your No last visit? Has dressing in place as prescribed Yes Has compression in place as prescribed Yes Has offloadiing in place as prescribed No Experienced any changes in pain level or No management Left Footwear Regular Shoe Right Footwear Regular Shoe Pain Scale: 0-10 Numeric Is Patient Pain Free? Yes - Nurse 1 - General Ulcer Measurement Start: 03/07/23 08:25 Freq: Status: Active Protocol: Activity Type Activity Date Activity User E-sign Co-sign Detail Recorded Client Recorded Date Recorded By Document 03/07/23 08:26 KW Desktop 03/07/23 08:39 KW Document 03/21/23 08:42 KW Desktop 03/21/23 08:47 KW Document 03/28/23 08:17 KW Desktop 03/28/23 08:37 KW 03/07/23 03/21/23 03/28/23 08:26 08:42 08:17 Wound Center Nurse 1 #9 LT ANKLE -Current Size (cm) - Length 0.5 0.8 1.2 -Current Size (cm) - Width 0.3 0.7 0.9 -Current Size (cm) - Depth 0.1 0.2 0.2 -Total Square Cm 0.15 0.56 1.08 -Exudate Amt Small Small Medium -Exudate Type Serosanguineous Serosanguineous Serosanguineous -Wound Margin Distinct, Distinct, Thickened Outline Outline Attached Attached -Granulation Amt Small (1-33%) Medium (34-66%) Small (1-33%) -Granulation Quality Red Red Red -Necrosis Amt Small (1-33%) Medium (34-66%) Medium (34-66%) -Necrotic Tissue Type Adherent Slough Adherent Slough Adherent Slough -Texture (Jada-wound Skin Appearance) Assessed Assessed, Localized Edema -Moisture (Jada-wound Skin Appearance) Assessed Assessed -Color (Jada-wound Skin Appearance) Assessed Assessed, Erythema -Temperature (Jada-wound Skin No Abnormality Appearance) (Pt Warm) -Ulcer Cleansing Soap and Water Soap and Water Soap and Water -Foul Odor after Cleansing No No -Anesthetic Used 5% Lidocaine 5% Lidocaine 5% Lidocaine Gel Gel Gel #8 L Leon -Current Size (cm) - Length 1.5 0.1 1.2 -Current Size (cm) - Width 2.0 0.1 1.9 -Current Size (cm) - Depth 0.2 0.1 0.1 -Total Square Cm 3.00 0.01 2.28 -Exudate Amt Small None Present -Exudate Type Serosanguineous -Wound Margin Distinct, Distinct, Distinct, Outline Outline Outline Attached Attached Attached -Granulation Amt Medium (34-66%) -Granulation Quality Red -Necrosis Amt Small (1-33%) -Necrotic Tissue Type Adherent Slough -Texture (Jada-wound Skin Appearance) Assessed Assessed Assessed -Moisture (Jada-wound Skin Appearance) Assessed Assessed Assessed -Color (Jada-wound Skin Appearance) Assessed Assessed Assessed -Temperature (Jada-wound Skin No Abnormality No Abnormality No Abnormality Appearance) (Pt Warm) (Pt Warm) (Pt Warm) -Ulcer Cleansing Soap and Water Soap and Water Soap and Water -Foul Odor after Cleansing No No -Anesthetic Used 5% Lidocaine 5% Lidocaine 5% Lidocaine Gel Gel Gel -Wound Comment(s) scab scabbed with dry blood Left Calf (cm) 37.2 36.3 37.5 Left Ankle (cm) 22.0 21.7 22 WC - Nurse 2 - General Ulcer CM Notes Start: 03/07/23 08:25 Freq: Status: Active Protocol: Activity Type Activity Date Activity User E-sign Co-sign Detail Recorded Client Recorded Date Recorded By Document 03/07/23 16:22 PL [id number] 03/07/23 16:26 PL Document 03/14/23 17:51 PL [id number] 03/14/23 17:54 PL Document 03/21/23 16:21 PL [id number] 03/21/23 16:23 PL 03/07/23 03/14/23 03/21/23 16:22 17:51 16:21 Wound Center Nurse 2 #9 LT ANKLE -Time 09:01 08:56 09:20 -Correct Patient Yes Yes Yes -Correct Side, Site, Position Yes Yes Yes -Correct Procedure Yes Yes Yes -Procedure Performed Yes Yes Yes -Type of Procedure Debridement Debridement Debridement -Clinical Debridement Subcutaneous Subcutaneous Subcutaneous -Tissue Removed Subcutaneous Subcutaneous Subcutaneous -Post Debridement (cm) - Length 0.6 0.6 1.1 -Post Debridement (cm) - Width 0.4 0.5 0.8 -Post Debridement (cm) - Depth 0.2 0.1 0.4 -Total Square (Post) (cm) 0.24 0.30 0.88 -Area of Debridement (cm) - Length 0.6 0.6 1.1 -Area of Debridement (cm) - Width 0.4 0.5 0.8 -Total Square (Area) (cm) 0.24 0.30 0.88 -Tunneling No No No -Undermining/Tunneling No No No -Circular Undermining No No No -Wound/Ulcer Outcome Not Healed Not Healed Not Healed -Ulcer Cleansing Rinsed/ Rinsed/ Rinsed/ Irrigated with Irrigated with Irrigated with Saline Saline Saline -Foul Odor after Cleansing No No No -Bioengineered Tissue No No No -Bleeding Controlled with Pressure Pressure Pressure -Treatment Response Procedure Procedure Procedure Tolerated Well Tolerated Well Tolerated Well -Debridement - Subq, 1st 20sq cm Yes Yes Yes #8 L Leon -Time 09:01 08:56 09:20 -Correct Patient Yes Yes Yes -Correct Side, Site, Position Yes Yes Yes -Correct Procedure Yes Yes Yes -Procedure Performed Yes Yes Yes -Type of Procedure Debridement Debridement Debridement -Clinical Debridement Subcutaneous Subcutaneous Subcutaneous -Tissue Removed Subcutaneous Subcutaneous Subcutaneous -Post Debridement (cm) - Length 1.2 1.5 1.3 -Post Debridement (cm) - Width 1.4 1.8 0.9 -Post Debridement (cm) - Depth 0.1 0.1 0.1 -Total Square (Post) (cm) 1.68 2.70 1.17 -Area of Debridement (cm) - Length 1.2 1.5 1.3 -Area of Debridement (cm) - Width 1.4 1.8 0.9 -Total Square (Area) (cm) 1.68 2.70 1.17 -Tunneling No No No -Undermining/Tunneling No No No -Circular Undermining No No No -Wound/Ulcer Outcome Not Healed Not Healed Not Healed -Ulcer Cleansing Rinsed/ Rinsed/ Rinsed/ Irrigated with Irrigated with Irrigated with Saline Saline Saline -Foul Odor after Cleansing No No No -Bioengineered Tissue Yes Yes Yes -Type of Bioengineered Tissue Epifix 18mm Epifix 18mm Epifix 18mm Disc Disc Disc -Expiration Date 12/02/27 12/02/27 12/02/27 -Product Lot Number [id number] -Percent Used 100 100 100 -Bleeding Controlled with Pressure Pressure Pressure -Treatment Response Procedure Procedure Procedure Tolerated Well Tolerated Well Tolerated Well -Debridement - Subq, 1st 20sq cm No No No -Apply Skin Sub - 1st 25 sq cm - Legs 1 1 1 -Epifix 18mm Disc 3 3 3 Pain Scale: 0-10 Numeric Is Patient Pain Free? Yes Yes Yes - Nurse 3 - General Ulcer D/C NN Start: 03/07/23 08:25 Freq: Status: Active Protocol: Activity Type Activity Date Activity User E-sign Co-sign Detail Recorded Client Recorded Date Recorded By Document 03/07/23 09:20 KW Desktop 03/07/23 09:20 KW Document 03/14/23 09:14 JF Desktop 03/14/23 09:17 JF Document 03/21/23 09:42 DL Desktop 03/21/23 09:43 DL 03/07/23 03/14/23 03/21/23 09:20 09:14 09:42 Wound Care Center Nurse 3 #9 LT ANKLE -Ulcer Cleansing Rinsed/ Irrigated with Saline -Foul Odor after Cleansing No No -Other Dressing epifix -Primary Dressing Covered/Secured with Dry Gauze & Dry Gauze & Dry Gauze & Roll Gauze, Roll Gauze, Roll Gauze, Secured with Secured with Secured with Tape Tape Tape #8 L Leon -Foul Odor after Cleansing No -Other Dressing epifix -Primary Dressing Covered/Secured with Dry Gauze & Dry Gauze & Dry Gauze & Roll Gauze, Roll Gauze, Roll Gauze, Secured with Secured with Secured with Tape Tape Tape -Other Covering tubigrip Left -Tubular Bandage Single Layer Single Layer -Size of Tubigrip Used Size D Size D -Size D ($) 1 1 Treatment Response Procedure Tolerated Well Pain Scale: 0-10 Numeric Is Patient Pain Free? Yes Yes Yes WC - Visit Discharge Discharge Condition Stable Stable Stable Ambulatory Status Ambulatory,Cane Ambulatory,Cane Ambulatory,Cane Transportation Private Auto Private Auto Accompanied by Medication Reconcilliation completed & No Yes provided to patient/care provider Clinical Summary of Care Provided Yes Yes Additional Wound Wound debrided: Left anterior lower extremity Laterality: Left Wound Grade/Stage: Miguel stage I Type of Debridement: Excisional debridement Anesthesia Used: 5% Lidocaine Gel Depth: Down to and including healthy tissue and in the subcutaneous layer Percentage of wound debrided: 100 Instrument Used: 5mm curette Tissue Removed: Fibrous, devitalized subcutaneous, biofilm, slough Severity: Fat Layer Exposed Amount of bleeding with debridement: Mild Bleeding Controlled with: Compression and gauze Patient tolerated procedure: Patient tolerated procedure well Assessment/Plan Assessment/Plan (1) Delayed wound healing: CODE(S): T14.8XXD - Other injury of unspecified body region, subsequent encounter (2) 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 layer exposed: CODE(S): L97.222 - 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 layer exposed (3) Non-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: CODE(S): L97.322 - Non-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 layerexposed (4) Venous insufficiency of both lower extremities: CODE(S): I87.2 - Venous insufficiency (chronic) (peripheral) (5) COPD (chronic obstructive pulmonary disease): CODE(S): J44.9 - Chronic obstructive pulmonary disease, unspecified (6) DM type 2 (diabetes mellitus, type 2): CODE(S): E11.9 - Type 2 diabetes mellitus without complications QUALIFIERS: Diabetes mellitus complication status: with other specified complication Diabetes mellitus longterm insulin use: with longterm use Qualified Code(s): E11.69 - Type 2 diabetes mellitus with other specified complication; Z79.4 - termination clerk (current) use of insulin (7) Hyperlipidemia: CODE(S): E78.5 - Hyperlipidemia, unspecified QUALIFIERS: Hyperlipidemia type: unspecified Qualified Code(s): E78.5 - Hyperlipidemia, unspecified (8) Chronic diastolic (congestive) heart failure: CODE(S): I50.32 - Chronic diastolic (congestive) heart failure (9) Longstanding persistent atrial fibrillation: CODE(S): I48.11 - Longstanding persistent atrial fibrillation PLAN: Plan Patient seen and evaluated I reviewed his previous treatment history by PCP. Patient had followed Dr. Anderson. Ulceration underwent debridement as noted in the clinical panel above. Ulceration to the left anterior lower extremity measures 1.1 cm x 0.9 cm x 0.1 cm. No signs of infection. EpiFix graft #6 applied to wound bed. Site dressedwith Adaptic touch and anchored with Steri-Strips then dressed with dry sterile dressing. He was instructed to not get the dressing wet. They are to change outer layer as needed. Left lateral ankle measures 1.4 cm x 1.0 cm x 0.5 cm. Wound underwent debridement as noted in clinical panel above. Sunni applied to the wound and they will change daily. Anterior leg wound does demonstrate reduction in size from previous visit. Lateral ankle wound has increased in size vs previous visit. Discussed continued diabetic diet to ensure proper glucose control. Recent A1c 6.4%. Discussed that this is a good standing for control of his diabetes and will aid in wound healing. Discussed with to aid in daily foot checks as her is blind. Discussed wearing shoe gear at all times and to never go barefoot. Socks include barefoot. They voiced understanding of this today. Recommend continued follow-up with PCP for continued diabetic management. Discussed adequate protein intake to continue to aid in wound healing. Also discussed Negrito supplementation to aid in wound healing. Discussed signs and symptoms with the pertaining to infection. Discussed if she notices increasing redness about the wound margin spreading up the leg, any purulent drainage from the wound site, increasing foul odor from the wound, or if he experiences fever greater than 101 degree, nausea, vomiting, chills that these are signs of progressing infection and he needs to report to the ED. They voiced understanding of this today. The following work up and care recommendations were made: Dressing: EpiFix, Adaptic touch, Steri-Strips, dry sterile dressing. Change outer dressing as needed Wash: Do not get wet Tissue growth optimization: EpiFix Offload: Ensure anterior leg is not bumped and discussed no picking at skin sites. Vascular: DP and PT pulses palpable with adequate capillary fill time. However skin demonstrates trophic changes consistent with microvascular disease. Edema: No edema currently, has history of chronic venous stasis. Recommend continued compression stocking. Infection: No signs of infection. Pain: May take [id number] Tylenol extra strength for discomfort. Host factors: DM type II, chronic venous stasis, CHF, COPD, blindness I answered all the patient's questions. To return to the wound healing center in 2 weeks or call sooner if the patient has any questions or concerns. 03/28/23 1223 <Electronically signed by Alejandro Talbot DPM> Cosigner Signature (if applicable): CC: ~ Signed [facility] [place] Work Phone: [phone] 161-379810-20-2023 Progress note Author Alejandro Talbot [facility] [place] March 22, 2023 12:44am Note Date/Time March 22, 2023 1 2:42am [facility] [address] [place] [address] Progress Note - Wound Care 03/22/23 0039 MR#: [id number] Acct: [id number] Name: ARMIN TURCIOS Rep #:[id number] : 1950 72 From: Alejandro bar DPM PCP: Dr. Jessi Olguin, MD Status:REG RCR Location: History of Present Illness Date of Service: 03/21/23 Chief Complaint: Left Leg Ulcer History of Wound: Mr. Turcios is a 72-year-old with PMHx of of diabetes mellitus type 2, venous insufficiency bilateral lower extremity, history of multiple ulcerations, HTN, HLD, COPD, A-fib, CHF. He presents back to the woundcare center today accompanied by his for nonhealing left lower extremity ulceration. states he has either bumped his leg on something or picked at some skin on the front of his leg creating a new wound. They state they have been following with Dr. Anderson in [place] as well as PCP Dr. Olguin. They stateoccasional use of mupirocin topical ointment but otherwise have not been applying dressings to the site. They state the wound has been present for a fewweeks and has not made much progress and thus they were referred to the wound care center for continued wound healing. He denies N/V/F/chills. He has no further complaints. Subjective Subjective Patient is a 72-year-old male who follows up to the wound care center today for a left lower extremity ulceration x 2. His states she has left graft in place and is only changing outer dressings as needed. He denies constitutional symptoms today. Denies further complaints today. Objective Data Objective Data Vital Signs: Vital Signs Temp Pulse Resp BP O2 Del Method 97.6 F L 87 18 135/75 H Room Air 03/14/23 08:41 03/21/23 08:42 03/21/23 08:42 03/21/23 08:42 03/21/23 08:42 Oxygen Delivery Method Room Air Weight: 114.015 kg Body Mass Index (BMI) 31.4 Physical Exam Const alert, oriented x3 and no apparent distress General Appearance: cooperative HEENT normocephalic Eyes Eyes Narrative: Blind, wearing dark glasses Neck General: normal visual inspection Lymph Lymphatic: no lymphadenopathy noted and no lymphedema noted Resp normal respiratory effort Cardio regular rate and regular rhythm Extremity normal capillary refill, no joint enlargement, no calf tenderness and no pedal edema Extremity Narrative: DP pulses palpable and PT pulses weakly palpable bilateral. CFT less than 3 seconds to the digits bilateral. Hair growth absent to digits of foot bilateral. Dermatological: Skin is thin and demonstrating trophic changes bilateral lower extremity. Skin is excessively dry with peeling/flaking consistent with diabetic autonomic neuropathy and microvascular disease. There is an ulcerationnoted to the anterior aspect overlying the tibial crest with 80% mixed yellow fibrotic tissue and 20% red granular tissue at wound margin. There is crusting secondary to serous drainage at wound margin. Musculoskeletal: Muscle strength 5 of 5 age-appropriate. Decreased ankle range of motion in dorsiflexion with the knee extended without pain or crepitus bilateral. Decreased range of motion of the first metatarsophalangeal joint without pain or crepitus bilateral. There is hammertoe deformity of lesser digits bilateral without pain to palpation. Skin no rashes or lesions noted, skin turgor normal and no jaundice Neuro moves all extremities Debridement Note Debridement Note Wound debrided: Left lower extremity x2 Laterality: Left Wound Grade/Stage: Miguel stage I Type of Debridement: Excisional debridement Anesthesia Used: 5% Lidocaine Gel Depth: Down to and including healthy tissue and in the subcutaneous layer Percentage of wound debrided: 100 Instrument Used: 5mm curette Tissue Removed: Fibrous, devitalized subcutaneous, biofilm, slough to Severity: Fat Layer Exposed Amount of bleeding with debridement: Mild Bleeding Controlled with: Compression and gauze Patient tolerated procedure: Patient tolerated procedure well Post-Debridement Measurements and Additional Note: Post-Debridement Measurements/Treatment - Nurse 1 - General Ulcer Assessment Start: 03/07/23 08:25 Freq: Status: Active Protocol: .SHANNAN Activity Type Activity Date Activity User E-sign Co-sign Detail Recorded Client Recorded Date Recorded By Document 03/07/23 08:26 KW Desktop 03/07/23 08:39 KW Document 03/14/23 08:41 PL Desktop 03/14/23 08:42 PL Document 03/21/23 08:42 KW Desktop 03/21/23 08:47 KW 03/07/23 03/14/23 03/21/23 08:26 08:41 08:42 - Today's Visit Information Type of service Follow-up Visit Follow-up Visit Follow-up Visit (Physician/DOG TRAINER (Physician/DOG TRAINER (Physician/DOG TRAINER ) ) ) Arrival Mode Ambulatory,Cane Ambulatory,Cane Ambulatory,Cane Transfer Assistance None Accompanied by Patient Identification Verified (Name & Yes Yes Yes ) Patient Requires Transmission-Based No Precautions Height and Weight Body Mass Index (BMI) 31.4 31.4 31.4 BMI Classification Obese Obese Obese Vital Signs Temperature (97.8 F-99.1 F) 96.7 F L 97.6 F L Temperature Source Temporal Temporal Pulse Rate (60-100) 91 95 87 Pulse Location Monitor Monitor Respiratory Rate (12-18) 18 18 18 Respiratory rate source Observation Observation Oxygen Delivery Method Room Air Room Air Blood Pressure (90/60-120/80) 138/78 H 133/65 H 135/75 H Blood Pressure Mean (mm Hg) 98 87 95 Source Monitor Monitor Position Sitting Semi-Fowlers Blood Pressure Location Left Arm Left Arm History Since Last Visit- (Skip if this is Patient's initial visit) Have you changed medications since your No No No last visit? Any new allergies or adverse reactions No No No Had a fall/change in ADL's that may No No No increase risk of falls Signs or symptoms of abuse and/or No No No neglect since last visit Have you been in the hospital since your No No No last visit? Has dressing in place as prescribed Yes Yes Yes Has compression in place as prescribed Yes Yes Yes Has offloadiing in place as prescribed No N/A No Experienced any changes in pain level or No No No management Left Footwear Regular Shoe Regular Shoe Right Footwear Regular Shoe Regular Shoe Pain Scale: 0-10 Numeric Is Patient Pain Free? Yes Yes Yes WC - Nurse 1 - General Ulcer Measurement Start: 03/07/23 08:25 Freq: Status: Active Protocol: Activity Type Activity Date Activity User E-sign Co-sign Detail Recorded Client Recorded Date Recorded By Document 03/07/23 08:26 KW [employer] 03/07/23 08:39 KW Document 03/21/23 08:42 KW [employer] 03/21/23 08:47 KW 03/07/23 03/21/23 08:26 08:42 Wound Center Nurse 1 #9 LT ANKLE -Current Size (cm) - Length 0.5 0.8 -Current Size (cm) - Width 0.3 0.7 -Current Size (cm) - Depth 0.1 0.2 -Total Square Cm 0.15 0.56 -Exudate Amt Small Small -Exudate Type Serosanguineous Serosanguineous -Wound Margin Distinct, Distinct, Outline Outline Attached Attached -Granulation Amt Small (1-33%) Medium (34-66%) -Granulation Quality Red Red -Necrosis Amt Small (1-33%) Medium (34-66%) -Necrotic Tissue Type Adherent Slough Adherent Slough -Texture (Jada-wound Skin Appearance) Assessed -Moisture (Jada-wound Skin Appearance) Assessed -Color (Jada-wound Skin Appearance) Assessed -Ulcer Cleansing Soap and Water Soap and Water -Foul Odor after Cleansing No -Anesthetic Used 5% Lidocaine 5% Lidocaine Gel Gel #8 L Leon -Current Size (cm) - Length 1.5 0.1 -Current Size (cm) - Width 2.0 0.1 -Current Size (cm) - Depth 0.2 0.1 -Total Square Cm 3.00 0.01 -Exudate Amt Small -Exudate Type Serosanguineous -Wound Margin Distinct, Distinct, Outline Outline Attached Attached -Granulation Amt Medium (34-66%) -Granulation Quality Red -Necrosis Amt Small (1-33%) -Necrotic Tissue Type Adherent Slough -Texture (Jada-wound Skin Appearance) Assessed Assessed -Moisture (Jada-wound Skin Appearance) Assessed Assessed -Color (Jada-wound Skin Appearance) Assessed Assessed -Temperature (Jada-wound Skin No Abnormality No Abnormality Appearance) (Pt Warm) (Pt Warm) -Ulcer Cleansing Soap and Water Soap and Water -Foul Odor after Cleansing No -Anesthetic Used 5% Lidocaine 5% Lidocaine Gel Gel -Wound Comment(s) scab Left Calf (cm) 37.2 36.3 Left Ankle (cm) 22.0 21.7 WC - Nurse 2 - General Ulcer CM Notes Start: 03/07/23 08:25 Freq: Status: Active Protocol: Activity Type Activity Date Activity User E-sign Co-sign Detail Recorded Client Recorded Date Recorded By Document 03/07/23 16:22 PL [id number] 03/07/23 16:26 PL Document 03/14/23 17:51 PL [id number] 03/14/23 17:54 PL Document 03/21/23 16:21 PL [id number] 03/21/23 16:23 PL 03/07/23 03/14/23 03/21/23 16:22 17:51 16:21 Wound Center Nurse 2 #9 LT ANKLE -Time 09:01 08:56 09:20 -Correct Patient Yes Yes Yes -Correct Side, Site, Position Yes Yes Yes -Correct Procedure Yes Yes Yes -Procedure Performed Yes Yes Yes -Type of Procedure Debridement Debridement Debridement -Clinical Debridement Subcutaneous Subcutaneous Subcutaneous -Tissue Removed Subcutaneous Subcutaneous Subcutaneous -Post Debridement (cm) - Length 0.6 0.6 1.1 -Post Debridement (cm) - Width 0.4 0.5 0.8 -Post Debridement (cm) - Depth 0.2 0.1 0.4 -Total Square (Post) (cm) 0.24 0.30 0.88 -Area of Debridement (cm) - Length 0.6 0.6 1.1 -Area of Debridement (cm) - Width 0.4 0.5 0.8 -Total Square (Area) (cm) 0.24 0.30 0.88 -Tunneling No No No -Undermining/Tunneling No No No -Circular Undermining No No No -Wound/Ulcer Outcome Not Healed Not Healed Not Healed -Ulcer Cleansing Rinsed/ Rinsed/ Rinsed/ Irrigated with Irrigated with Irrigated with Saline Saline Saline -Foul Odor after Cleansing No No No -Bioengineered Tissue No No No -Bleeding Controlled with Pressure Pressure Pressure -Treatment Response Procedure Procedure Procedure Tolerated Well Tolerated Well Tolerated Well -Debridement - Subq, 1st 20sq cm Yes Yes Yes #8 L Leon -Time 09:01 08:56 09:20 -Correct Patient Yes Yes Yes -Correct Side, Site, Position Yes Yes Yes -Correct Procedure Yes Yes Yes -Procedure Performed Yes Yes Yes -Type of Procedure Debridement Debridement Debridement -Clinical Debridement Subcutaneous Subcutaneous Subcutaneous -Tissue Removed Subcutaneous Subcutaneous Subcutaneous -Post Debridement (cm) - Length 1.2 1.5 1.3 -Post Debridement (cm) - Width 1.4 1.8 0.9 -Post Debridement (cm) - Depth 0.1 0.1 0.1 -Total Square (Post) (cm) 1.68 2.70 1.17 -Area of Debridement (cm) - Length 1.2 1.5 1.3 -Area of Debridement (cm) - Width 1.4 1.8 0.9 -Total Square (Area) (cm) 1.68 2.70 1.17 -Tunneling No No No -Undermining/Tunneling No No No -Circular Undermining No No No -Wound/Ulcer Outcome Not Healed Not Healed Not Healed -Ulcer Cleansing Rinsed/ Rinsed/ Rinsed/ Irrigated with Irrigated with Irrigated with Saline Saline Saline -Foul Odor after Cleansing No No No -Bioengineered Tissue Yes Yes Yes -Type of Bioengineered Tissue Epifix 18mm Epifix 18mm Epifix 18mm Disc Disc Disc -Expiration Date 12/02/27 12/02/27 12/02/27 -Product Lot Number [id number] -Percent Used 100 100 100 -Bleeding Controlled with Pressure Pressure Pressure -Treatment Response Procedure Procedure Procedure Tolerated Well Tolerated Well Tolerated Well -Debridement - Subq, 1st 20sq cm No No No -Apply Skin Sub - 1st 25 sq cm - Legs 1 1 1 -Epifix 18mm Disc 3 3 3 Pain Scale: 0-10 Numeric Is Patient Pain Free? Yes Yes Yes WC - Nurse 3 - General Ulcer D/C NN Start: 03/07/23 08:25 Freq: Status: Active Protocol: Activity Type Activity Date Activity User E-sign Co-sign Detail Recorded Client Recorded Date Recorded By Document 03/07/23 09:20 KW Desktop 03/07/23 09:20 KW Document 03/14/23 09:14 JF Desktop 03/14/23 09:17 JF Document 03/21/23 09:42 DL Desktop 03/21/23 09:43 DL 03/07/23 03/14/23 03/21/23 09:20 09:14 09:42 Wound Care Center Nurse 3 #9 LT ANKLE -Ulcer Cleansing Rinsed/ Irrigated with Saline -Foul Odor after Cleansing No No -Other Dressing epifix -Primary Dressing Covered/Secured with Dry Gauze & Dry Gauze & Dry Gauze & Roll Gauze, Roll Gauze, Roll Gauze, Secured with Secured with Secured with Tape Tape Tape #8 L Leon -Foul Odor after Cleansing No -Other Dressing epifix -Primary Dressing Covered/Secured with Dry Gauze & Dry Gauze & Dry Gauze & Roll Gauze, Roll Gauze, Roll Gauze, Secured with Secured with Secured with Tape Tape Tape -Other Covering tubigrip Left -Tubular Bandage Single Layer Single Layer -Size of Tubigrip Used Size D Size D -Size D ($) 1 1 Treatment Response Procedure Tolerated Well Pain Scale: 0-10 Numeric Is Patient Pain Free? Yes Yes Yes WC - Visit Discharge Discharge Condition Stable Stable Stable Ambulatory Status Ambulatory,Cane Ambulatory,Cane Ambulatory,Cane Transportation Private Auto Private Auto Accompanied by Medication Reconcilliation completed & No Yes provided to patient/care provider Clinical Summary of Care Provided Yes Yes Assessment/Plan Assessment/Plan (1) Delayed wound healing: CODE(S): T14.8XXD - Other injury of unspecified body region, subsequent encounter (2) 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 layer exposed: CODE(S): L97.222 - 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 layer exposed (3) Non-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: CODE(S): L97.322 - Non-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 layerexposed (4) Venous insufficiency of both lower extremities: CODE(S): I87.2 - Venous insufficiency (chronic) (peripheral) (5) COPD (chronic obstructive pulmonary disease): CODE(S): J44.9 - Chronic obstructive pulmonary disease, unspecified (6) DM type 2 (diabetes mellitus, type 2): CODE(S): E11.9 - Type 2 diabetes mellitus without complications QUALIFIERS: 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: with 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 use Diabetes mellitus complication status: with other specified complication Qualified Code(s): E11.69 - Type 2 diabetes mellitus with other specified complication; Z79.4 - long-term (current) use of insulin (7) Hyperlipidemia: CODE(S): E78.5 - Hyperlipidemia, unspecified QUALIFIERS: Hyperlipidemia type: unspecified Qualified Code(s): E78.5 - Hyperlipidemia, unspecified (8) Chronic diastolic (congestive) heart failure: CODE(S): I50.32 - Chronic diastolic (congestive) heart failure (9) Longstanding persistent atrial fibrillation: CODE(S): I48.11 - Longstanding persistent atrial fibrillation PLAN: Plan Patient seen and evaluated I reviewed his previous treatment history by PCP. Patient had followed Dr. Anderson. Ulceration underwent debridement as noted in the clinical panel above. Ulceration to the left anterior lower extremity measures 1.3 cm x 0.9 cm x 0.1 cm. No signs of infection. EpiFix graft #5 applied to wound bed. Site dressed withAdaptic touch and anchored with Steri-Strips then dressed with dry sterile dressing. He was instructed to not get the dressing wet. They are to change outer layer as needed. Left lateral ankle measures 1.1 cm x 0.8 cm x 0.4 cm. Wound underwent debridement as noted in clinical panel above. Sunni applied to the wound and they will change daily. Anterior leg wound does demonstrate reduction in size from previous visit. Lateral ankle wound has increased in size vs previous visit. Discussed continued diabetic diet to ensure proper glucose control. Recent A1c 6.4%. Discussed that this is a good standing for control of his diabetes and will aid in wound healing. Discussed with to aid in daily foot checks as her is blind. Discussed wearing shoe gear at all times and to never go barefoot. Socks include barefoot. They voiced understanding of this today. Recommend continued follow-up with PCP for continued diabetic management. Discussed adequate protein intake to continue to aid in wound healing. Also discussed Negrito supplementation to aid in wound healing. Discussed signs and symptoms with the pertaining to infection. Discussed if she notices increasing redness about the wound margin spreading up the leg, any purulent drainage from the wound site, increasing foul odor from the wound, or if he experiences fever greater than 101 degree, nausea, vomiting, chills that these are signs of progressing infection and he needs to report to the ED. They voiced understanding of this today. The following work up and care recommendations were made: Dressing: EpiFix, Adaptic touch, Steri-Strips, dry sterile dressing. Change outer dressing as needed Wash: Do not get wet Tissue growth optimization: EpiFix Offload: Ensure anterior leg is not bumped and discussed no picking at skin sites. Vascular: DP and PT pulses palpable with adequate capillary fill time. However skin demonstrates trophic changes consistent with microvascular disease. Edema: No edema currently, has history of chronic venous stasis. Recommend continued compression stocking. Infection: No signs of infection. Pain: May take [id number] Tylenol extra strength for discomfort. Host factors: DM type II, chronic venous stasis, CHF, COPD, blindness I answered all the patient's questions. To return to the wound healing center in 1 week or call sooner if the patient has any questions or concerns. 03/22/23 0044 <Electronically signed by Alejandro Talbot DPM> Cosigner Signature (if applicable): CC: ~ Signed [facility] [place] Work Phone: 1(767) 960-623710-12-2023 Progress note Author Alejandro Talbot [facility] [place] March 14, 2023 9:26am Note Date/Time March 14, 2023 8 :40am [facility] [address] [place] [address] Progress Note - Wound Care 03/14/23 0839 MR#: [id number] Acct: [id number] Name: ARMIN TURCIOS Rep #:[id number] : [id number] 72 From: Alejandro bar DPM PCP: Dr. Jessi Olguin MD Status:REG RCR Location: History of Present Illness Date of Service: 03/14/23 Chief Complaint: Left Leg Ulcer History of Wound: Mr. Turcios is a 72-year-old with PMHx of of diabetes mellitus type 2, venous insufficiency bilateral lower extremity, history of multiple ulcerations, HTN, HLD, COPD, A-fib, CHF. He presents back to the woundcare center today accompanied by his for nonhealing left lower extremity ulceration. states he has either bumped his leg on something or picked at some skin on the front of his leg creating a new wound. They state they have been following with Dr. Anderson in [place] as well as PCP Dr. Olguin. They stateoccasional use of mupirocin topical ointment but otherwise have not been applying dressings to the site. They state the wound has been present for a fewweeks and has not made much progress and thus they were referred to the wound care center for continued wound healing. He denies N/V/F/chills. He has no further complaints. Subjective Subjective Patient is a 72-year-old male who follows up to the wound care center today for a left lower extremity ulceration x 2. His states she has left graft in place and is only changing outer dressings as needed. He denies constitutional symptoms today. Denies further complaints today. Objective Data Objective Data Vital Signs: Vital Signs Temp Pulse Resp BP O2 Del Method 96.7 F L 91 18 138/78 H Room Air 03/07/23 08:26 03/07/23 08:26 03/07/23 08:26 03/07/23 08:26 03/07/23 08:26 Oxygen Delivery Method Room Air Weight: 114.015 kg Body Mass Index (BMI) 31.4 Physical Exam Const alert, oriented x3 and no apparent distress General Appearance: cooperative HEENT normocephalic Eyes Eyes Narrative: Blind, wearing dark glasses Neck General: normal visual inspection Lymph Lymphatic: no lymphadenopathy noted and no lymphedema noted Resp normal respiratory effort Cardio regular rate and regular rhythm Extremity normal capillary refill, no joint enlargement, no calf tenderness and no pedal edema Extremity Narrative: DP pulses palpable and PT pulses weakly palpable bilateral. CFT less than 3 seconds to the digits bilateral. Hair growth absent to digits of foot bilateral. Dermatological: Skin is thin and demonstrating trophic changes bilateral lower extremity. Skin is excessively dry with peeling/flaking consistent with diabetic autonomic neuropathy and microvascular disease. There is an ulcerationnoted to the anterior aspect overlying the tibial crest with 80% mixed yellow fibrotic tissue and 20% red granular tissue at wound margin. There is crusting secondary to serous drainage at wound margin. Musculoskeletal: Muscle strength 5 of 5 age-appropriate. Decreased ankle range of motion in dorsiflexion with the knee extended without pain or crepitus bilateral. Decreased range of motion of the first metatarsophalangeal joint without pain or crepitus bilateral. There is hammertoe deformity of lesser digits bilateral without pain to palpation. Skin no rashes or lesions noted, skin turgor normal and no jaundice Neuro moves all extremities Debridement Note Debridement Note Wound debrided: Left anterior leg Laterality: Left Wound Grade/Stage: Miguel stage I Type of Debridement: Excisional debridement Anesthesia Used: 5% Lidocaine Gel Depth: Down to and including healthy tissue and in the subcutaneous layer Percentage of wound debrided: 100 Instrument Used: 5mm curette Tissue Removed: Fibrous, devitalized subcutaneous, biofilm, slough Severity: Fat Layer Exposed Amount of bleeding with debridement: Mild Bleeding Controlled with: Compression and gauze Patient tolerated procedure: Patient tolerated procedure well Post-Debridement Measurements and Additional Note: Post-Debridement Measurements/Treatment BRYANNA - Nurse 1 - General Ulcer Assessment Start: 03/07/23 08:25 Freq: Status: Active Protocol: OLIVIA Activity Type Activity Date Activity User E-sign Co-sign Detail Recorded Client Recorded Date Recorded By Document 03/07/23 08:26 [employer] 03/07/23 08:39 03/07/23 08:26 WC - Today's Visit Information Type of service Follow-up Visit (Physician/DOG TRAINER ) Arrival Mode Ambulatory,Cane Accompanied by Patient Identification Verified (Name & Yes ) Height and Weight Body Mass Index (BMI) 31.4 BMI Classification Obese Vital Signs Temperature (97.8 F-99.1 F) 96.7 F L Temperature Source Temporal Pulse Rate (60-100) 91 Pulse Location Monitor Respiratory Rate (12-18) 18 Respiratory rate source Observation Oxygen Delivery Method Room Air Blood Pressure (90/60-120/80) 138/78 H Blood Pressure Mean (mm Hg) 98 Source Monitor Position Sitting Blood Pressure Location Left Arm History Since Last Visit- (Skip if this is Patient's initial visit) Have you changed medications since your No last visit? Any new allergies or adverse reactions No Had a fall/change in ADL's that may No increase risk of falls Signs or symptoms of abuse and/or No neglect since last visit Have you been in the hospital since your No last visit? Has dressing in place as prescribed Yes Has compression in place as prescribed Yes Has offloadiing in place as prescribed No Experienced any changes in pain level or No management Left Footwear Regular Shoe Right Footwear Regular Shoe Pain Scale: 0-10 Numeric Is Patient Pain Free? Yes - Nurse 1 - General Ulcer Measurement Start: 03/07/23 08:25 Freq: Status: Active Protocol: Activity Type Activity Date Activity User E-sign Co-sign Detail Recorded Client Recorded Date Recorded By Document 03/07/23 08:26 [employer] 03/07/23 08:39 03/07/23 08:26 Wound Center Nurse 1 #9 LT ANKLE -Current Size (cm) - Length 0.5 -Current Size (cm) - Width 0.3 -Current Size (cm) - Depth 0.1 -Total Square Cm 0.15 -Exudate Amt Small -Exudate Type Serosanguineous -Wound Margin Distinct, Outline Attached -Granulation Amt Small (1-33%) -Granulation Quality Red -Necrosis Amt Small (1-33%) -Necrotic Tissue Type Adherent Slough -Texture (Jada-wound Skin Appearance) Assessed -Moisture (Jada-wound Skin Appearance) Assessed -Color (Jada-wound Skin Appearance) Assessed -Ulcer Cleansing Soap and Water -Anesthetic Used 5% Lidocaine Gel #8 L Leon -Current Size (cm) - Length 1.5 -Current Size (cm) - Width 2.0 -Current Size (cm) - Depth 0.2 -Total Square Cm 3.00 -Exudate Amt Small -Exudate Type Serosanguineous -Wound Margin Distinct, Outline Attached -Granulation Amt Medium (34-66%) -Granulation Quality Red -Necrosis Amt Small (1-33%) -Necrotic Tissue Type Adherent Slough -Texture (Jada-wound Skin Appearance) Assessed -Moisture (Jada-wound Skin Appearance) Assessed -Color (Jada-wound Skin Appearance) Assessed -Temperature (Jada-wound Skin No Abnormality Appearance) (Pt Warm) -Ulcer Cleansing Soap and Water -Foul Odor after Cleansing No -Anesthetic Used 5% Lidocaine Gel Left Calf (cm) 37.2 Left Ankle (cm) 22.0 WC - Nurse 2 - General Ulcer CM Notes Start: 03/07/23 08:25 Freq: Status: Active Protocol: Activity Type Activity Date Activity User E-sign Co-sign Detail Recorded Client Recorded Date Recorded By Document 03/07/23 16:22 PL [id number] 03/07/23 16:26 PL 03/07/23 16:22 Wound Center Nurse 2 #9 LT ANKLE -Time 09:01 -Correct Patient Yes -Correct Side, Site, Position Yes -Correct Procedure Yes -Procedure Performed Yes -Type of Procedure Debridement -Clinical Debridement Subcutaneous -Tissue Removed Subcutaneous -Post Debridement (cm) - Length 0.6 -Post Debridement (cm) - Width 0.4 -Post Debridement (cm) - Depth 0.2 -Total Square (Post) (cm) 0.24 -Area of Debridement (cm) - Length 0.6 -Area of Debridement (cm) - Width 0.4 -Total Square (Area) (cm) 0.24 -Tunneling No -Undermining/Tunneling No -Circular Undermining No -Wound/Ulcer Outcome Not Healed -Ulcer Cleansing Rinsed/ Irrigated with Saline -Foul Odor after Cleansing No -Bioengineered Tissue No -Bleeding Controlled with Pressure -Treatment Response Procedure Tolerated Well -Debridement - Subq, 1st 20sq cm Yes #8 L Leon -Time 09:01 -Correct Patient Yes -Correct Side, Site, Position Yes -Correct Procedure Yes -Procedure Performed Yes -Type of Procedure Debridement -Clinical Debridement Subcutaneous -Tissue Removed Subcutaneous -Post Debridement (cm) - Length 1.2 -Post Debridement (cm) - Width 1.4 -Post Debridement (cm) - Depth 0.1 -Total Square (Post) (cm) 1.68 -Area of Debridement (cm) - Length 1.2 -Area of Debridement (cm) - Width 1.4 -Total Square (Area) (cm) 1.68 -Tunneling No -Undermining/Tunneling No -Circular Undermining No -Wound/Ulcer Outcome Not Healed -Ulcer Cleansing Rinsed/ Irrigated with Saline -Foul Odor after Cleansing No -Bioengineered Tissue Yes -Type of Bioengineered Tissue Epifix 18mm Disc -Expiration Date 12/02/27 -Product Lot Number [id number] -Percent Used 100 -Bleeding Controlled with Pressure -Treatment Response Procedure Tolerated Well -Debridement - Subq, 1st 20sq cm No -Apply Skin Sub - 1st 25 sq cm - Legs 1 -Epifix 18mm Disc 3 Pain Scale: 0-10 Numeric Is Patient Pain Free? Yes - Nurse 3 - General Ulcer D/C NN Start: 03/07/23 08:25 Freq: Status: Active Protocol: Activity Type Activity Date Activity User E-sign Co-sign Detail Recorded Client Recorded Date Recorded By Document 03/07/23 09:20 KW Desktop 03/07/23 09:20 KW 03/07/23 09:20 Wound Care Center Nurse 3 #9 LT ANKLE -Primary Dressing Covered/Secured with Dry Gauze & Roll Gauze, Secured with Tape #8 L Leon -Primary Dressing Covered/Secured with Dry Gauze & Roll Gauze, Secured with Tape Left -Tubular Bandage Single Layer -Size of Tubigrip Used Size D -Size D ($) 1 Pain Scale: 0-10 Numeric Is Patient Pain Free? Yes - Visit Discharge Discharge Condition Stable Ambulatory Status Ambulatory,Cane Transportation Private Auto Medication Reconcilliation completed & No provided to patient/care provider Clinical Summary of Care Provided Yes Additional Wound Wound debrided: Left lateral ankle Laterality: Left Wound Grade/Stage: Miguel stage I Type of Debridement: Excisional debridement Anesthesia Used: 5% Lidocaine Gel Depth: Down to and including healthy tissue and in the subcutaneous layer Percentage of wound debrided: 100 Instrument Used: 5mm curette and #15 blade Tissue Removed: Fibrous, devitalized subcutaneous, biofilm, slough Severity: Fat Layer Exposed Amount of bleeding with debridement: Mild Bleeding Controlled with: Compression and gauze Patient tolerated procedure: Patient tolerated procedure well Assessment/Plan Assessment/Plan (1) Delayed wound healing: CODE(S): T14.8XXD - Other injury of unspecified body region, subsequent encounter (2) 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 layer exposed: CODE(S): L97.222 - 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 layer exposed (3) Non-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: CODE(S): L97.322 - Non-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 layerexposed (4) Venous insufficiency of both lower extremities: CODE(S): I87.2 - Venous insufficiency (chronic) (peripheral) (5) COPD (chronic obstructive pulmonary disease): CODE(S): J44.9 - Chronic obstructive pulmonary disease, unspecified (6) DM type 2 (diabetes mellitus, type 2): CODE(S): E11.9 - Type 2 diabetes mellitus without complications QUALIFIERS: Diabetes mellitus complication status: with other specified complication Diabetes mellitus longterm insulin use: with longterm use Qualified Code(s): E11.69 - Type 2 diabetes mellitus with other specified complication; Z79.4 - termination clerk (current) use of insulin (7) Hyperlipidemia: CODE(S): E78.5 - Hyperlipidemia, unspecified QUALIFIERS: Hyperlipidemia type: unspecified Qualified Code(s): E78.5 - Hyperlipidemia, unspecified (8) Chronic diastolic (congestive) heart failure: CODE(S): I50.32 - Chronic diastolic (congestive) heart failure (9) Longstanding persistent atrial fibrillation: CODE(S): I48.11 - Longstanding persistent atrial fibrillation PLAN: Plan Patient seen and evaluated I reviewed his previous treatment history by PCP. Patient had followed Dr. Anderson. Ulceration underwent debridement as noted in the clinical panel above. Ulceration to the left anterior lower extremity measures 1.5 cm x 1.8 cm x 0.1 cm. No signs of infection. EpiFix graft #4 applied to wound bed. Site dressedwith Adaptic touch and anchored with Steri-Strips then dressed with dry sterile dressing. He was instructed to not get the dressing wet. They are to change outer layer as needed. Left lateral ankle measures 0.6 cm x 0.5 cm x 0.2 cm. Wound underwent debridement as noted in clinical panel above. Sunni applied to the wound and they will change daily. Anterior leg wound does demonstrate slight reduction in size from previous visit. Discussed continued diabetic diet to ensure proper glucose control. Recent A1c 6.4%. Discussed that this is a good standing for control of his diabetes and will aid in wound healing. Discussed with to aid in daily foot checks as her is blind. Discussed wearing shoe gear at all times and to never go barefoot. Socks include barefoot. They voiced understanding of this today. Recommend continued follow-up with PCP for continued diabetic management. Discussed adequate protein intake to continue to aid in wound healing. Also discussed Negrito supplementation to aid in wound healing. Discussed signs and symptoms with the pertaining to infection. Discussed if she notices increasing redness about the wound margin spreading up the leg, any purulent drainage from the wound site, increasing foul odor from the wound, or if he experiences fever greater than 101 degree, nausea, vomiting, chills that these are signs of progressing infection and he needs to report to the ED. They voiced understanding of this today. The following work up and care recommendations were made: Dressing: EpiFix, Adaptic touch, Steri-Strips, dry sterile dressing. Change outer dressing as needed Wash: Do not get wet Tissue growth optimization: EpiFix Offload: Ensure anterior leg is not bumped and discussed no picking at skin sites. Vascular: DP and PT pulses palpable with adequate capillary fill time. However skin demonstrates trophic changes consistent with microvascular disease. Edema: No edema currently, has history of chronic venous stasis. Recommend continued compression stocking. Infection: No signs of infection. Pain: May take [id number] Tylenol extra strength for discomfort. Host factors: DM type II, chronic venous stasis, CHF, COPD, blindness I answered all the patient's questions. To return to the wound healing center in 1 week or call sooner if the patient has any questions or concerns. 03/14/23 0949 <Electronically signed by lAejandro Talbot DPM> Cosigner Signature (if applicable): CC: ~ Signed [facility] [place] Work Phone: 1(266) 642-294410-05-2023 Progress note Author Alejandro Talbot [facility] [place] March 07, 2023 10:18am Note Date/Time March 07, 2023 9: 38am [facility] [address] [place] [address] Progress Note - Wound Care 03/07/23 0930 MR#: [id number] Acct: [id number] Name: ARMIN TURCIOS Rep #:[id number] : 1950 72 From: Alejandro bar DPM PCP: Dr. Jessi Olguin MD Status:REG RCR Location: History of Present Illness Date of Service: 03/07/23 Chief Complaint: Left Leg Ulcer History of Wound: Mr. Turcios is a 72-year-old with PMHx of of diabetes mellitus type 2, venous insufficiency bilateral lower extremity, history of multiple ulcerations, HTN, HLD, COPD, A-fib, CHF. He presents back to the woundcare center today accompanied by his for nonhealing left lower extremity ulceration. states he has either bumped his leg on something or picked at some skin on the front of his leg creating a new wound. They state they have been following with Dr. Anderson in [place] as well as PCP Dr. Olguin. They stateoccasional use of mupirocin topical ointment but otherwise have not been applying dressings to the site. They state the wound has been present for a fewweeks and has not made much progress and thus they were referred to the wound care center for continued wound healing. He denies N/V/F/chills. He has no further complaints. Subjective Subjective Patient is a 72-year-old male who follows up to the wound care center today for a left lower extremity ulceration. His states she has left graft in place and is only changing outer dressings as needed. She states he has developed a new wound to the lateral ankle of the left leg. She is unsure of how the wound occurred. He denies constitutional symptoms today. Denies further complaints today. Objective Data Objective Data Vital Signs: Vital Signs Temp Pulse Resp BP O2 Del Method 96.7 F L 91 18 138/78 H Room Air 03/07/23 08:26 03/07/23 08:26 03/07/23 08:26 03/07/23 08:26 03/07/23 08:26 Oxygen Delivery Method Room Air Weight: 114.015 kg Body Mass Index (BMI) 31.4 Physical Exam Const alert, oriented x3 and no apparent distress General Appearance: cooperative HEENT normocephalic Eyes Eyes Narrative: Blind, wearing dark glasses Neck General: normal visual inspection Lymph Lymphatic: no lymphadenopathy noted and no lymphedema noted Resp normal respiratory effort Cardio regular rate and regular rhythm Extremity normal capillary refill, no joint enlargement, no calf tenderness and no pedal edema Extremity Narrative: DP pulses palpable and PT pulses weakly palpable bilateral. CFT less than 3 seconds to the digits bilateral. Hair growth absent to digits of foot bilateral. Dermatological: Skin is thin and demonstrating trophic changes bilateral lower extremity. Skin is excessively dry with peeling/flaking consistent with diabetic autonomic neuropathy and microvascular disease. There is an ulcerationnoted to the anterior aspect overlying the tibial crest with 80% mixed yellow fibrotic tissue and 20% red granular tissue at wound margin. There is crusting secondary to serous drainage at wound margin. Musculoskeletal: Muscle strength 5 of 5 age-appropriate. Decreased ankle range of motion in dorsiflexion with the knee extended without pain or crepitus bilateral. Decreased range of motion of the first metatarsophalangeal joint without pain or crepitus bilateral. There is hammertoe deformity of lesser digits bilateral without pain to palpation. Skin no rashes or lesions noted, skin turgor normal and no jaundice Neuro moves all extremities Debridement Note Debridement Note Wound debrided: Left lower extremity x2 Laterality: Left Wound Grade/Stage: Miguel stage I Type of Debridement: Excisional debridement Anesthesia Used: 5% Lidocaine Gel Depth: Down to and including healthy tissue and in the subcutaneous layer Percentage of wound debrided: 100 Instrument Used: 5mm curette Tissue Removed: Fibrous, devitalized subcutaneous, biofilm, slough Severity: Fat Layer Exposed Amount of bleeding with debridement: Mild Bleeding Controlled with: Compression and gauze Patient tolerated procedure: Patient tolerated procedure well Post-Debridement Measurements and Additional Note: Post-Debridement Measurements/Treatment BRYANNA - Nurse 1 - General Ulcer Assessment Start: 03/07/23 08:25 Freq: Status: Active Protocol: OLIVIA Activity Type Activity Date Activity User E-sign Co-sign Detail Recorded Client Recorded Date Recorded By Document 03/07/23 08:26 Cozy Cloudop 03/07/23 08:39 03/07/23 08:26 WC - Today's Visit Information Type of service Follow-up Visit (Physician/DOG TRAINER ) Arrival Mode Ambulatory,Cane Accompanied by Patient Identification Verified (Name & Yes ) Height and Weight Body Mass Index (BMI) 31.4 BMI Classification Obese Vital Signs Temperature (97.8 F-99.1 F) 96.7 F L Temperature Source Temporal Pulse Rate (60-100) 91 Pulse Location Monitor Respiratory Rate (12-18) 18 Respiratory rate source Observation Oxygen Delivery Method Room Air Blood Pressure (90/60-120/80) 138/78 H Blood Pressure Mean (mm Hg) 98 Source Monitor Position Sitting Blood Pressure Location Left Arm History Since Last Visit- (Skip if this is Patient's initial visit) Have you changed medications since your No last visit? Any new allergies or adverse reactions No Had a fall/change in ADL's that may No increase risk of falls Signs or symptoms of abuse and/or No neglect since last visit Have you been in the hospital since your No last visit? Has dressing in place as prescribed Yes Has compression in place as prescribed Yes Has offloadiing in place as prescribed No Experienced any changes in pain level or No management Left Footwear Regular Shoe Right Footwear Regular Shoe Pain Scale: 0-10 Numeric Is Patient Pain Free? Yes - Nurse 1 - General Ulcer Measurement Start: 03/07/23 08:25 Freq: Status: Active Protocol: Activity Type Activity Date Activity User E-sign Co-sign Detail Recorded Client Recorded Date Recorded By Document 03/07/23 08:26 Cozy Cloudop 03/07/23 08:39 03/07/23 08:26 Wound Center Nurse 1 #9 LT ANKLE -Current Size (cm) - Length 0.5 -Current Size (cm) - Width 0.3 -Current Size (cm) - Depth 0.1 -Total Square Cm 0.15 -Exudate Amt Small -Exudate Type Serosanguineous -Wound Margin Distinct, Outline Attached -Granulation Amt Small (1-33%) -Granulation Quality Red -Necrosis Amt Small (1-33%) -Necrotic Tissue Type Adherent Slough -Texture (Jada-wound Skin Appearance) Assessed -Moisture (Jada-wound Skin Appearance) Assessed -Color (Jada-wound Skin Appearance) Assessed -Ulcer Cleansing Soap and Water -Anesthetic Used 5% Lidocaine Gel #8 L Leon -Current Size (cm) - Length 1.5 -Current Size (cm) - Width 2.0 -Current Size (cm) - Depth 0.2 -Total Square Cm 3.00 -Exudate Amt Small -Exudate Type Serosanguineous -Wound Margin Distinct, Outline Attached -Granulation Amt Medium (34-66%) -Granulation Quality Red -Necrosis Amt Small (1-33%) -Necrotic Tissue Type Adherent Slough -Texture (Jada-wound Skin Appearance) Assessed -Moisture (Jada-wound Skin Appearance) Assessed -Color (Jada-wound Skin Appearance) Assessed -Temperature (Jada-wound Skin No Abnormality Appearance) (Pt Warm) -Ulcer Cleansing Soap and Water -Foul Odor after Cleansing No -Anesthetic Used 5% Lidocaine Gel Left Calf (cm) 37.2 Left Ankle (cm) 22.0 - Nurse 3 - General Ulcer D/C NN Start: 03/07/23 08:25 Freq: Status: Active Protocol: Activity Type Activity Date Activity User E-sign Co-sign Detail Recorded Client Recorded Date Recorded By Document 03/07/23 09:20 KW Desktop 03/07/23 09:20 KW 03/07/23 09:20 Wound Care Center Nurse 3 #9 LT ANKLE -Primary Dressing Covered/Secured with Dry Gauze & Roll Gauze, Secured with Tape #8 L Leon -Primary Dressing Covered/Secured with Dry Gauze & Roll Gauze, Secured with Tape Left -Tubular Bandage Single Layer -Size of Tubigrip Used Size D -Size D ($) 1 Pain Scale: 0-10 Numeric Is Patient Pain Free? Yes WC - Visit Discharge Discharge Condition Stable Ambulatory Status Ambulatory,Cane Transportation Private Auto Medication Reconcilliation completed & No provided to patient/care provider Clinical Summary of Care Provided Yes Assessment/Plan Assessment/Plan (1) Delayed wound healing: CODE(S): T14.8XXD - Other injury of unspecified body region, subsequent encounter (2) 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 layer exposed: CODE(S): L97.222 - 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 layer exposed (3) Non-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: CODE(S): L97.322 - Non-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 layerexposed (4) Venous insufficiency of both lower extremities: CODE(S): I87.2 - Venous insufficiency (chronic) (peripheral) (5) COPD (chronic obstructive pulmonary disease): CODE(S): J44.9 - Chronic obstructive pulmonary disease, unspecified (6) DM type 2 (diabetes mellitus, type 2): CODE(S): E11.9 - Type 2 diabetes mellitus without complications QUALIFIERS: Diabetes mellitus complication status: with other specified complication 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: with longterm use Qualified Code(s): E11.69 - Type 2 diabetes mellitus with other specified complication; Z79.4 - long-term (current) use of insulin (7) Hyperlipidemia: CODE(S): E78.5 - Hyperlipidemia, unspecified QUALIFIERS: Hyperlipidemia type: unspecified Qualified Code(s): E78.5 - Hyperlipidemia, unspecified (8) Chronic diastolic (congestive) heart failure: CODE(S): I50.32 - Chronic diastolic (congestive) heart failure (9) Longstanding persistent atrial fibrillation: CODE(S): I48.11 - Longstanding persistent atrial fibrillation PLAN: Plan Patient seen and evaluated I reviewed his previous treatment history by PCP. Patient had followed Dr. Anderson. Ulceration underwent debridement as noted in the clinical panel above. Ulceration to the left anterior lower extremity measures 1.2 cm x 1.4 cm x 0.2 cm. No signs of infection. EpiFix graft #3 applied to wound bed. Site dressedwith Adaptic touch and anchored with Steri-Strips then dressed with dry sterile dressing. He was instructed to not get the dressing wet. They are to change outer layer as needed. New wound left lateral ankle measures 0.6 cm x 0.4 cm x 0.2 cm. Wound underwentdebridement as noted in clinical panel above. Sunni applied to the wound and they will change daily. Anterior leg wound does demonstrate reduction in size from previous visit. Discussed continued diabetic diet to ensure proper glucose control. Recent A1c 6.4%. Discussed that this is a good standing for control of his diabetes and will aid in wound healing. Discussed with to aid in daily foot checks as her is blind. Discussed wearing shoe gear at all times and to never go barefoot. Socks include barefoot. They voiced understanding of this today. Recommend continued follow-up with PCP for continued diabetic management. Discussed adequate protein intake to continue to aid in wound healing. Also discussed Negrito supplementation to aid in wound healing. Discussed signs and symptoms with the pertaining to infection. Discussed if she notices increasing redness about the wound margin spreading up the leg, any purulent drainage from the wound site, increasing foul odor from the wound, or if he experiences fever greater than 101 degree, nausea, vomiting, chills that these are signs of progressing infection and he needs to report to the ED. They voiced understanding of this today. The following work up and care recommendations were made: Dressing: EpiFix, Adaptic touch, Steri-Strips, dry sterile dressing. Change outer dressing as needed Wash: Do not get wet Tissue growth optimization: EpiFix Offload: Ensure anterior leg is not bumped and discussed no picking at skin sites. Vascular: DP and PT pulses palpable with adequate capillary fill time. However skin demonstrates trophic changes consistent with microvascular disease. Edema: No edema currently, has history of chronic venous stasis. Recommend continued compression stocking. Infection: No signs of infection. Pain: May take [id number] Tylenol extra strength for discomfort. Host factors: DM type II, chronic venous stasis, CHF, COPD, blindness I answered all the patient's questions. To return to the wound healing center in 1 week or call sooner if the patient has any questions or concerns. 03/07/23 1018 <Electronically signed by Alejandro Talbot DPM> Cosigner Signature (if applicable): CC: ~ Signed [facility] Work Phone: 1(703) 329-884409-28-2023 Progress note Author Alejandro Talbot [facility] February 28, 2023 9:13am Note Date/Time February 28, 2023 8:33am [facility] [address] [place] [address] Progress Note - Wound Care 02/28/23 0833 MR#: [id number] Acct: [id number] Name: ARMIN TURCIOS Rep #:[id number] : 1950 72 From: Alejandro bar DPM PCP: Dr. Jessi Olguin MD Status:REG RCR Location: WC History of Present Illness Date of Service: 02/28/23 Chief Complaint: Left Leg Ulcer History of Wound: Mr. Turcios is a 72-year-old with PMHx of of diabetes mellitus type 2, venous insufficiency bilateral lower extremity, history of multiple ulcerations, HTN, HLD, COPD, A-fib, CHF. He presents back to the woundcare center today accompanied by his for nonhealing left lower extremity ulceration. states he has either bumped his leg on something or picked at some skin on the front of his leg creating a new wound. They state they have been following with Dr. Anderson in [place] as well as PCP Dr. Olguin. They stateoccasional use of mupirocin topical ointment but otherwise have not been applying dressings to the site. They state the wound has been present for a fewweeks and has not made much progress and thus they were referred to the wound care center for continued wound healing. He denies N/V/F/chills. He has no further complaints. Subjective Subjective Patient is a 72-year-old male who follows up to the wound care center today for a left lower extremity ulceration. His states she has left graft in place and is only changing outer dressings as needed. He denies constitutional symptoms today. Denies further complaints today. Objective Data Objective Data Vital Signs: Vital Signs Temp Pulse Resp BP 95.9 F L 108 H 20 H 124/77 H 02/28/23 08:22 02/28/23 08:22 02/28/23 08:22 02/28/23 08:22 Weight: 114.015 kg Body Mass Index (BMI) 31.4 Physical Exam Const alert, oriented x3 and no apparent distress General Appearance: cooperative HEENT normocephalic Eyes Eyes Narrative: Patient is blind, wearing dark glasses today Neck General: normal visual inspection Lymph Lymphatic: no lymphadenopathy noted and no lymphedema noted Resp normal respiratory effort Cardio regular rate and regular rhythm Extremity normal capillary refill, no joint enlargement, no calf tenderness and no pedal edema Extremity Narrative: DP pulses palpable and PT pulses weakly palpable bilateral. CFT less than 3 seconds to the digits bilateral. Hair growth absent to digits of foot bilateral. Dermatological: Skin is thin and demonstrating trophic changes bilateral lower extremity. Skin is excessively dry with peeling/flaking consistent with diabetic autonomic neuropathy and microvascular disease. There is an ulcerationnoted to the anterior aspect overlying the tibial crest with 80% mixed yellow fibrotic tissue and 20% red granular tissue at wound margin. There is crusting secondary to serous drainage at wound margin. Musculoskeletal: Muscle strength 5 of 5 age-appropriate. Decreased ankle range of motion in dorsiflexion with the knee extended without pain or crepitus bilateral. Decreased range of motion of the first metatarsophalangeal joint without pain or crepitus bilateral. There is hammertoe deformity of lesser digits bilateral without pain to palpation. Skin no rashes or lesions noted and no jaundice Neuro moves all extremities Debridement Note Debridement Note Wound debrided: Left lower extremity Laterality: Left Wound Grade/Stage: Miguel stage I Type of Debridement: Excisional debridement Anesthesia Used: 5% Lidocaine Gel Depth: Down to and including healthy tissue and in the subcutaneous layer Percentage of wound debrided: 100 Instrument Used: 5mm curette Tissue Removed: Fibrous, devitalized subcutaneous, biofilm, slough Severity: Fat Layer Exposed Amount of bleeding with debridement: Mild Bleeding Controlled with: Compression and gauze Patient tolerated procedure: Patient tolerated procedure well Post-Debridement Measurements and Additional Note: Post-Debridement Measurements/Treatment WC - Nurse 1 - General Ulcer Assessment Start: 02/14/23 08:08 Freq: Status: Active Protocol: OLIVIA Activity Type Activity Date Activity User E-sign Co-sign Detail Recorded Client Recorded Date Recorded By Document 02/14/23 08:08 DL [id number] 02/14/23 08:25 DL Edit Result 02/14/23 08:08 DL (1) [id number] 02/14/23 08:44 DL Document 02/21/23 08:31 DL Desktop 02/21/23 08:34 DL Document 02/28/23 08:22 DL Desktop 02/28/23 08:31 DL (1) Preferred language => Belgian Able to Read => No: blind Able to Write => No: blind Communication Tools => None Right Hearing Abillity => Normal Left Hearing Abillity => Normal Visual Assistive Devices => Legally Blind Preferences => Verbal Barriers to Learning => None Readiness To Learn => Good Willingness to Engage in Self Management => Med Activies Readiness to Engage in Self Management => Med Activities Anxiety Level => Calm Cooperation => Cooperative Perception => Coherent Interest in Health Problem => Asks Questions Education Importance => Acknowledges Need Does Patient Smoke tobacco or other => No substances Smoking Status => Former smoker Is Patient Diabetic => Yes Recent Decline in Ability to Perform => Denies Any => Declines Cultural/Sabianism Needs that may affect => No Treatment Plan Would you allow our hospital brim buster to => No meet you for the purpose of spiritual/ emotional support? Bar Welder to contact place of episcopalian => No Discharge Instructions - Person Taught => Patient, => Significant Other Dressing Your Wound - Person Taught => Patient, => Significant Other *Welcome to the Wound Center - Person Taught => Patient, => Significant Other 02/14/23 02/21/23 02/28/23 08:08 08:31 08:22 WC - Today's Visit Information Type of service Initial Visit Follow-up Visit Follow-up Visit (Physician/DOG TRAINER (Physician/DOG TRAINER ) ) Arrival Mode Ambulatory,Cane Ambulatory Ambulatory, Walker Transfer Assistance Manual None None Transfer Assist (Other) x2 Patient Identification Verified (Name & Yes Yes Yes ) Patient Requires Transmission-Based No No No Precautions Finger Stick Blood Sugar(mg/dl) (if [phone] indicated): Blood Sugar Stated by Stated by Stated by Patient Patient Patient Height and Weight Height 6 ft 3 in Weight 114.015 kg Weight in Pounds 251.4 lbs Weight Measurement Method Estimated by Patient Body Mass Index (BMI) 31.4 31.4 31.4 BMI Classification Obese Obese Obese BSA - Genna 2.42 Vital Signs Temperature (97.8 F-99.1 F) 97 F L 96.9 F L 95.9 F L Temperature Source Temporal Temporal Temporal Pulse Rate (60-100) 102 H 96 108 H Pulse Location Monitor Monitor Monitor Respiratory Rate (12-18) 20 H 20 H 20 H Respiratory rate source Observation Observation Blood Pressure (90/60-120/80) 108/67 118/63 124/77 H Blood Pressure Mean (mm Hg) 80 81 92 Source Monitor Monitor Monitor History Since Last Visit- (Skip if this is Patient's initial visit) Have you changed medications since your No No last visit? Any new allergies or adverse reactions No No Had a fall/change in ADL's that may No No increase risk of falls Signs or symptoms of abuse and/or No No neglect since last visit Have you been in the hospital since your No No last visit? Has dressing in place as prescribed Yes Yes Has compression in place as prescribed Yes Yes Has offloadiing in place as prescribed N/A N/A Experienced any changes in pain level or No No management Left Footwear Regular Shoe Right Footwear Regular Shoe Pain Scale: 0-10 Numeric Is Patient Pain Free? Yes Yes Yes Lower Extremity Assessment/ Foot Assessment/ Toe Nail Assessment Left -Posterior Tibial Palpable Yes -Dorsalis Pedis Palpable Yes -Extremity Color Mottled, Hyperpigmented, Hemosiderin -Hair Growth on Legs No -Hair Growth on Toes No -Temperature of Extremity Warm -Capillary Refill Greater than 3 Seconds -Dependent Rubor No -Blanched when Elevated No -Lipodermatosclerosis No -Other Deformity No -Prior Foot Ulcer No -Charcot Joint No -Prior Amputation No -Thick Yes -Discolored Yes -Deformed Yes -Improper Length & Hygeine No Right -Posterior Tibial Palpable Yes -Dorsalis Pedis Palpable Yes -Extremity Color Mottled, Hyperpigmented, Hemosiderin -Hair Growth on Legs No -Hair Growth on Toes No -Temperature of Extremity Warm -Capillary Refill Greater than 3 Seconds -Dependent Rubor No -Blanched when Elevated No -Lipodermatosclerosis No -Other Deformity No -Prior Foot Ulcer No -Charcot Joint No -Thick Yes -Discolored Yes -Deformed Yes -Improper Length & Hygeine No Communication Assessment Preferred language Belgian Able to Read No: blind Able to Write No: blind Communication Tools None Right Hearing Abillity Normal Left Hearing Abillity Normal Visual Assistive Devices Legally Blind Teaching Assessment Preferences Verbal Barriers to Learning None Readiness To Learn Good Willingness to Engage in Self Management Med Activies Readiness to Engage in Self Management Med Activities Anxiety Level Calm Cooperation Cooperative Perception Coherent Interest in Health Problem Asks Questions Education Importance Acknowledges Need Does Patient Smoke tobacco or other No substances Smoking Status Former smoker Is Patient Diabetic Yes Functional Assessment Recent Decline in Ability to Perform Denies Any Declines Culture/Sabianism/Bar Welder Cultural/Sabianism Needs that may affect No Treatment Plan Would you allow our hospital brim buster to No meet you for the purpose of spiritual/ emotional support? Bar Welder to contact place of episcopalian No Teaching: Wound Center Discharge Instructions -Person Taught Patient, Significant Other Dressing Your Wound -Person Taught Patient, Significant Other *Welcome to the Wound Center -Person Taught Patient, Significant Other WC - Nurse 1 - General Ulcer Measurement Start: 02/14/23 08:08 Freq: Status: Active Protocol: Activity Type Activity Date Activity User E-sign Co-sign Detail Recorded Client Recorded Date Recorded By Document 02/14/23 08:08 DL [id number] 02/14/23 08:25 DL Document 02/21/23 08:31 DL Desktop 02/21/23 08:34 DL Document 02/28/23 08:22 DL Desktop 02/28/23 08:31 DL 02/14/23 02/21/23 02/28/23 08:08 08:31 08:22 Wound Center Nurse 1 #8 L Leon -Current Size (cm) - Length 1.8 1.7 1.7 -Current Size (cm) - Width 2.2 2.4 1.8 -Current Size (cm) - Depth 0.2 0.2 0.2 -Total Square Cm 3.96 4.08 3.06 -Photo Taken Yes No -Classification - Thickness Full Thickness without Exposed Support Structure -Exudate Amt Medium Medium Medium -Exudate Type Serosanguineous Serosanguineous Serosanguineous -Wound Margin Distinct, Distinct, Distinct, Outline Outline Outline Attached Attached Attached -Granulation Amt Small (1-33%) Medium (34-66%) Medium (34-66%) -Granulation Quality [place] -Necrosis Amt Large (67-100%) Medium (34-66%) Medium (34-66%) -Necrotic Tissue Type Adherent Slough Adherent Slough Adherent Slough -Structure Exposed N/A N/A N/A -Texture (Jada-wound Skin Appearance) Scarring Scarring Scarring -Moisture (Jada-wound Skin Appearance) Dry/Scaly Dry/Scaly Dry/Scaly -Color (Jada-wound Skin Appearance) Hemosiderin Hemosiderin Hemosiderin Staining Staining Staining -Temperature (Jada-wound Skin No Abnormality No Abnormality No Abnormality Appearance) (Pt Warm) (Pt Warm) (Pt Warm) -Tenderness on Palpation (Jada-wound No No No Skin Appearance) -Ulcer Cleansing Soap and Water Soap and Water Soap and Water -Foul Odor after Cleansing No No No -Anesthetic Used 5% Lidocaine 5% Lidocaine 5% Lidocaine Gel Gel Gel Right Calf (cm) 43 Right Ankle (cm) 23 Left Calf (cm) 38.5 38.2 Left Ankle (cm) 21.7 23 WC - Nurse 2 - General Ulcer CM Notes Start: 02/14/23 08:08 Freq: Status: Active Protocol: Activity Type Activity Date Activity User E-sign Co-sign Detail Recorded Client Recorded Date Recorded By Document 02/14/23 12:48 PL [id number] 02/14/23 12:50 PL Document 02/21/23 11:55 PL [id number] 02/21/23 11:57 PL 02/14/23 02/21/23 12:48 11:55 Wound Center Nurse 2 #8 L Leon -Time 08:55 08:45 -Correct Patient Yes Yes -Correct Side, Site, Position Yes Yes -Correct Procedure Yes Yes -Procedure Performed Yes Yes -Type of Procedure Debridement Debridement -Clinical Debridement Subcutaneous Subcutaneous -Tissue Removed Subcutaneous Subcutaneous -Post Debridement (cm) - Length 1.9 1.7 -Post Debridement (cm) - Width 2.5 2.3 -Post Debridement (cm) - Depth 0.2 0.2 -Total Square (Post) (cm) 4.75 3.91 -Area of Debridement (cm) - Length 1.9 1.7 -Area of Debridement (cm) - Width 2.5 2.3 -Total Square (Area) (cm) 4.75 3.91 -Tunneling No No -Undermining/Tunneling No No -Circular Undermining No No -Wound/Ulcer Outcome Not Healed Not Healed -Ulcer Cleansing Rinsed/ Rinsed/ Irrigated with Irrigated with Saline Saline -Foul Odor after Cleansing No No -Bioengineered Tissue No Yes -Type of Bioengineered Tissue Epifix 18mm Disc -Expiration Date 11/02/27 -Product Lot Number [id number] -Percent Used 100 -Bleeding Controlled with Pressure Pressure -Treatment Response Procedure Procedure Tolerated Well Tolerated Well -Debridement - Subq, 1st 20sq cm Yes No -Apply Skin Sub - 1st 25 sq cm - Legs 1 -Epifix 18mm Disc 3 Pain Scale: 0-10 Numeric Is Patient Pain Free? Yes Yes WC - Nurse 3 - General Ulcer D/C NN Start: 02/14/23 08:08 Freq: Status: Active Protocol: Activity Type Activity Date Activity User E-sign Co-sign Detail Recorded Client Recorded Date Recorded By Document 02/14/23 09:08 KW [id number] 02/14/23 09:16 KW Document 02/21/23 09:01 DL Desktop 02/21/23 09:02 DL 02/14/23 02/21/23 09:08 09:01 Wound Care Center Nurse 3 #8 L Leon -Ulcer Cleansing Rinsed/ Irrigated with Saline -Foul Odor after Cleansing No No -Primary Dressing Applied Mepilex Border, Promogran Sunni Matter -Other Dressing epifix -Primary Dressing Covered/Secured with Dry Gauze & Roll Gauze, Secured with Tape -Mepilex Border 2 -Promogran Sunni Matter 1 Left -Tubular Bandage Single Layer -Size of Tubigrip Used Size D -Size D ($) 1 Treatment Response Procedure Procedure Tolerated Well Tolerated Well Pain Scale: 0-10 Numeric Is Patient Pain Free? Yes Yes WC - Visit Discharge Discharge Condition Stable Stable Ambulatory Status Ambulatory,Cane Ambulatory Transportation Private Auto Private Auto Accompanied by Assessment/Plan Assessment/Plan (1) Venous insufficiency of both lower extremities: CODE(S): I87.2 - Venous insufficiency (chronic) (peripheral) (2) Ulcer of left lower extremity with fat layer exposed: CODE(S): L97.922 - Non-pressure chronic ulcer of unspecified part of left lower leg with fat layer exposed (3) COPD (chronic obstructive pulmonary disease): CODE(S): J44.9 - Chronic obstructive pulmonary disease, unspecified (4) DM type 2 (diabetes mellitus, type 2): CODE(S): E11.9 - Type 2 diabetes mellitus without complications QUALIFIERS: Diabetes mellitus complication status: with other specified complication Diabetes mellitus longterm insulin use: with longterm use Qualified Code(s): E11.69 - Type 2 diabetes mellitus with other specified complication; Z79.4 - termination clerk (current) use of insulin (5) Hyperlipidemia: CODE(S): E78.5 - Hyperlipidemia, unspecified QUALIFIERS: Hyperlipidemia type: unspecified Qualified Code(s): E78.5 - Hyperlipidemia, unspecified (6) Essential (primary) hypertension: CODE(S): I10 - Essential (primary) hypertension (7) Chronic diastolic (congestive) heart failure: CODE(S): I50.32 - Chronic diastolic (congestive) heart failure (8) Longstanding persistent atrial fibrillation: CODE(S): I48.11 - Longstanding persistent atrial fibrillation (9) 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 layer exposed: CODE(S): L97.222 - 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 layer exposed (10) Delayed wound healing: CODE(S): T14.8XXD - Other injury of unspecified body region, subsequent encounter PLAN: Plan Patient seen and evaluated I reviewed his previous treatment history by PCP. Patient had followed Dr. Anderson. Ulceration underwent debridement as noted in the clinical panel above. Ulceration to the left anterior lower extremity measures 1.5 cm x 1.7 cm x 0.2 cm. No signs of infection. EpiFix graft #2 applied to wound bed. Site dressedwith Adaptic touch and anchored with Steri-Strips then dressed with dry sterile dressing. He was instructed to not get the dressing wet. They are to change outer layer as needed. Wound does demonstrate reduction in size from previous visit. Discussed continued diabetic diet to ensure proper glucose control. Recent A1c 6.4%. Discussed that this is a good standing for control of his diabetes and will aid in wound healing. Discussed with to aid in daily foot checks as her is blind. Discussed wearing shoe gear at all times and to never go barefoot. Socks include barefoot. They voiced understanding of this today. Recommend continued follow-up with PCP for continued diabetic management. Discussed adequate protein intake to continue to aid in wound healing. Also discussed Negrito supplementation to aid in wound healing. Discussed signs and symptoms with the pertaining to infection. Discussed if she notices increasing redness about the wound margin spreading up the leg, any purulent drainage from the wound site, increasing foul odor from the wound, or if he experiences fever greater than 101 degree, nausea, vomiting, chills that these are signs of progressing infection and he needs to report to the ED. They voiced understanding of this today. The following work up and care recommendations were made: Dressing: EpiFix, Adaptic touch, Steri-Strips, dry sterile dressing. Change outer dressing as needed Wash: Do not get wet Tissue growth optimization: EpiFix Offload: Ensure anterior leg is not bumped and discussed no picking at skin sites. Vascular: DP and PT pulses palpable with adequate capillary fill time. However skin demonstrates trophic changes consistent with microvascular disease. Edema: No edema currently, has history of chronic venous stasis. Recommend continued compression stocking. Infection: No signs of infection. Pain: May take [id number] Tylenol extra strength for discomfort. Host factors: DM type II, chronic venous stasis, CHF, COPD, blindness I answered all the patient's questions. To return to the wound healing center in 1 week or call sooner if the patient has any questions or concerns. 02/28/23912 <Electronically signed by Alejandro Talbot DPM> Cosigner Signature (if applicable): CC: ~ Signed [facility] [place] Work Phone: [phone] 167-109409-21-2023 Progress note Author Alejandro Talbot [facility] [place] February 21, 2023 9:27am Note Date/Time February 21, 2023 9:05am [facility] [address] [place] [address] Progress Note - Wound Care 02/21/23 0904 MR#: [id number] Acct: [id number] Name: ARMIN TURCIOS Rep #:[id number] 1950 72 From: Alejnadro bar DPM PCP: Dr. Jessi Olguin MD Status:REG RCR Location: History of Present Illness Date of Service: 02/21/23 Chief Complaint: Left Leg Ulcer History of Wound: Mr. Turcios is a 72-year-old with PMHx of of diabetes mellitus type 2, venous insufficiency bilateral lower extremity, history of multiple ulcerations, HTN, HLD, COPD, A-fib, CHF. He presents back to the woundcare center today accompanied by his for nonhealing left lower extremity ulceration. states he has either bumped his leg on something or picked at some skin on the front of his leg creating a new wound. They state they have been following with Dr. Anderson in [place] as well as PCP Dr. Olguin. They stateoccasional use of mupirocin topical ointment but otherwise have not been applying dressings to the site. They state the wound has been present for a fewweeks and has not made much progress and thus they were referred to the wound care center for continued wound healing. He denies N/V/F/chills. He has no further complaints. Subjective Subjective Patient is a 72-year-old male who follows up to the wound care center today for a left lower extremity ulceration. His states she has been applying Prismadaily to the site and changing dressings as instructed. He denies constitutional symptoms today. Denies further complaints today. Objective Data Objective Data Vital Signs: Vital Signs Temp Pulse Resp BP 96.9 F L 96 20 H 118/63 02/21/23 08:31 02/21/23 08:31 02/21/23 08:31 02/21/23 08:31 Weight: 114.015 kg Body Mass Index (BMI) 31.4 Physical Exam Const alert, oriented x3 and no apparent distress General Appearance: cooperative HEENT normocephalic Eyes Eyes Narrative: Patient is blind, wearing dark glasses today Neck General: normal visual inspection Lymph Lymphatic: no lymphadenopathy noted and no lymphedema noted Resp normal respiratory effort Cardio regular rate and regular rhythm Extremity normal capillary refill, no joint enlargement, no calf tenderness and no pedal edema Extremity Narrative: DP pulses palpable and PT pulses weakly palpable bilateral. CFT less than 3 seconds to the digits bilateral. Hair growth absent to digits of foot bilateral. Dermatological: Skin is thin and demonstrating trophic changes bilateral lower extremity. Skin is excessively dry with peeling/flaking consistent with diabetic autonomic neuropathy and microvascular disease. There is an ulcerationnoted to the anterior aspect overlying the tibial crest with 80% mixed yellow fibrotic tissue and 20% red granular tissue at wound margin. There is crusting secondary to serous drainage at wound margin. Musculoskeletal: Muscle strength 5 of 5 age-appropriate. Decreased ankle range of motion in dorsiflexion with the knee extended without pain or crepitus bilateral. Decreased range of motion of the first metatarsophalangeal joint without pain or crepitus bilateral. There is hammertoe deformity of lesser digits bilateral without pain to palpation. Skin no rashes or lesions noted and no jaundice Neuro moves all extremities Debridement Note Debridement Note Wound debrided: Left lower extremity Laterality: Left Wound Grade/Stage: Miguel stage I Type of Debridement: Excisional debridement Anesthesia Used: 5% Lidocaine Gel Depth: Down to and including healthy tissue and in the subcutaneous layer Percentage of wound debrided: 100 Instrument Used: 5mm curette Tissue Removed: Fibrous, devitalized subcutaneous, biofilm, slough Severity: Fat Layer Exposed Amount of bleeding with debridement: Mild Bleeding Controlled with: Compression and gauze Patient tolerated procedure: Patient tolerated procedure well Post-Debridement Measurements and Additional Note: Post-Debridement Measurements/Treatment - Nurse 1 - General Ulcer Assessment Start: 02/14/23 08:08 Freq: Status: Active Protocol: OLIVIA Activity Type Activity Date Activity User E-sign Co-sign Detail Recorded Client Recorded Date Recorded By Document 02/14/23 08:08 DL [id number] 02/14/23 08:25 DL Edit Result 02/14/23 08:08 DL (1) [id number] 02/14/23 08:44 DL Document 02/21/23 08:31 DL Desktop 02/21/23 08:34 DL (1) Preferred language => Belgian Able to Read => No: blind Able to Write => No: blind Communication Tools => None Right Hearing Abillity => Normal Left Hearing Abillity => Normal Visual Assistive Devices => Legally Blind Preferences => Verbal Barriers to Learning => None Readiness To Learn => Good Willingness to Engage in Self Management => Med Activies Readiness to Engage in Self Management => Med Activities Anxiety Level => Calm Cooperation => Cooperative Perception => Coherent Interest in Health Problem => Asks Questions Education Importance => Acknowledges Need Does Patient Smoke tobacco or other => No substances Smoking Status => Former smoker Is Patient Diabetic => Yes Recent Decline in Ability to Perform => Denies Any => Declines Cultural/Sabianism Needs that may affect => No Treatment Plan Would you allow our hospital brim buster to => No meet you for the purpose of spiritual/ emotional support? Bar Welder to contact place of episcopalian => No Discharge Instructions - Person Taught => Patient, => Significant Other Dressing Your Wound - Person Taught => Patient, => Significant Other *Welcome to the Wound Center - Person Taught => Patient, => Significant Other 02/14/23 02/21/23 08:08 08:31 - Today's Visit Information Type of service Initial Visit Follow-up Visit (Physician/DOG TRAINER ) Arrival Mode Ambulatory,Cane Ambulatory Transfer Assistance Manual None Transfer Assist (Other) x2 Patient Identification Verified (Name & Yes Yes ) Patient Requires Transmission-Based No No Precautions Finger Stick Blood Sugar(mg/dl) (if 187 137 indicated): Blood Sugar Stated by Stated by Patient Patient Height and Weight Height 6 ft 3 in Weight 114.015 kg Weight in Pounds 251.4 lbs Weight Measurement Method Estimated by Patient Body Mass Index (BMI) 31.4 31.4 BMI Classification Obese Obese BSA - Genna 2.42 Vital Signs Temperature (97.8 F-99.1 F) 97 F L 96.9 F L Temperature Source Temporal Temporal Pulse Rate (60-100) 102 H 96 Pulse Location Monitor Monitor Respiratory Rate (12-18) 20 H 20 H Respiratory rate source Observation Blood Pressure (90/60-120/80) 108/67 118/63 Blood Pressure Mean (mm Hg) 80 81 Source Monitor Monitor History Since Last Visit- (Skip if this is Patient's initial visit) Have you changed medications since your No last visit? Any new allergies or adverse reactions No Had a fall/change in ADL's that may No increase risk of falls Signs or symptoms of abuse and/or No neglect since last visit Have you been in the hospital since your No last visit? Has dressing in place as prescribed Yes Has compression in place as prescribed Yes Has offloadiing in place as prescribed N/A Experienced any changes in pain level or No management Left Footwear Regular Shoe Right Footwear Regular Shoe Pain Scale: 0-10 Numeric Is Patient Pain Free? Yes Yes Lower Extremity Assessment/ Foot Assessment/ Toe Nail Assessment Left -Posterior Tibial Palpable Yes -Dorsalis Pedis Palpable Yes -Extremity Color Mottled, Hyperpigmented, Hemosiderin -Hair Growth on Legs No -Hair Growth on Toes No -Temperature of Extremity Warm -Capillary Refill Greater than 3 Seconds -Dependent Rubor No -Blanched when Elevated No -Lipodermatosclerosis No -Other Deformity No -Prior Foot Ulcer No -Charcot Joint No -Prior Amputation No -Thick Yes -Discolored Yes -Deformed Yes -Improper Length & Hygeine No Right -Posterior Tibial Palpable Yes -Dorsalis Pedis Palpable Yes -Extremity Color Mottled, Hyperpigmented, Hemosiderin -Hair Growth on Legs No -Hair Growth on Toes No -Temperature of Extremity Warm -Capillary Refill Greater than 3 Seconds -Dependent Rubor No -Blanched when Elevated No -Lipodermatosclerosis No -Other Deformity No -Prior Foot Ulcer No -Charcot Joint No -Thick Yes -Discolored Yes -Deformed Yes -Improper Length & Hygeine No Communication Assessment Preferred language [place] Able to Read No: blind Able to Write No: blind Communication Tools None Right Hearing Abillity Normal Left Hearing Abillity Normal Visual Assistive Devices Legally Blind Teaching Assessment Preferences Verbal Barriers to Learning None Readiness To Learn Good Willingness to Engage in Self Management Med Activies Readiness to Engage in Self Management Med Activities Anxiety Level Calm Cooperation Cooperative Perception Coherent Interest in Health Problem Asks Questions Education Importance Acknowledges Need Does Patient Smoke tobacco or other No substances Smoking Status Former smoker Is Patient Diabetic Yes Functional Assessment Recent Decline in Ability to Perform Denies Any Declines Culture/Sabianism/Bar Welder Cultural/Sabianism Needs that may affect No Treatment Plan Would you allow our hospital brim buster to No meet you for the purpose of spiritual/ emotional support? Bar Welder to contact place of episcopalian No Teaching: Wound Center Discharge Instructions -Person Taught Patient, Significant Other Dressing Your Wound -Person Taught Patient, Significant Other *Welcome to the Wound Center -Person Taught Patient, Significant Other WC - Nurse 1 - General Ulcer Measurement Start: 02/14/23 08:08 Freq: Status: Active Protocol: Activity Type Activity Date Activity User E-sign Co-sign Detail Recorded Client Recorded Date Recorded By Document 02/14/23 08:08 DL [id number] 02/14/23 08:25 DL Document 02/21/23 08:31 DL Desktop 02/21/23 08:34 DL 02/14/23 02/21/23 08:08 08:31 Wound Center Nurse 1 #8 L Leon -Current Size (cm) - Length 1.8 1.7 -Current Size (cm) - Width 2.2 2.4 -Current Size (cm) - Depth 0.2 0.2 -Total Square Cm 3.96 4.08 -Photo Taken Yes No -Classification - Thickness Full Thickness without Exposed Support Structure -Exudate Amt Medium Medium -Exudate Type Serosanguineous Serosanguineous -Wound Margin Distinct, Distinct, Outline Outline Attached Attached -Granulation Amt Small (1-33%) Medium (34-66%) -Granulation Quality [place] Red -Necrosis Amt Large (67-100%) Medium (34-66%) -Necrotic Tissue Type Adherent Slough Adherent Slough -Structure Exposed N/A N/A -Texture (Jada-wound Skin Appearance) Scarring Scarring -Moisture (Jada-wound Skin Appearance) Dry/Scaly Dry/Scaly -Color (Jada-wound Skin Appearance) Hemosiderin Hemosiderin Staining Staining -Temperature (Jada-wound Skin No Abnormality No Abnormality Appearance) (Pt Warm) (Pt Warm) -Tenderness on Palpation (Jada-wound No No Skin Appearance) -Ulcer Cleansing Soap and Water Soap and Water -Foul Odor after Cleansing No No -Anesthetic Used 5% Lidocaine 5% Lidocaine Gel Gel Right Calf (cm) 43 Right Ankle (cm) 23 Left Calf (cm) 38.5 Left Ankle (cm) 21.7 WC - Nurse 2 - General Ulcer CM Notes Start: 02/14/23 08:08 Freq: Status: Active Protocol: Activity Type Activity Date Activity User E-sign Co-sign Detail Recorded Client Recorded Date Recorded By Document 02/14/23 12:48 PL [id number] 02/14/23 12:50 PL 02/14/23 12:48 Wound Center Nurse 2 -Time 08:55 -Correct Patient Yes -Correct Side, Site, Position Yes -Correct Procedure Yes -Procedure Performed Yes -Type of Procedure Debridement -Clinical Debridement Subcutaneous -Tissue Removed Subcutaneous -Post Debridement (cm) - Length 1.9 -Post Debridement (cm) - Width 2.5 -Post Debridement (cm) - Depth 0.2 -Total Square (Post) (cm) 4.75 -Area of Debridement (cm) - Length 1.9 -Area of Debridement (cm) - Width 2.5 -Total Square (Area) (cm) 4.75 -Tunneling No -Undermining/Tunneling No -Circular Undermining No -Wound/Ulcer Outcome Not Healed -Ulcer Cleansing Rinsed/ Irrigated with Saline -Foul Odor after Cleansing No -Bioengineered Tissue No -Bleeding Controlled with Pressure -Treatment Response Procedure Tolerated Well -Debridement - Subq, 1st 20sq cm Yes Pain Scale: 0-10 Numeric Is Patient Pain Free? Yes WC - Nurse 3 - General Ulcer D/C NN Start: 02/14/23 08:08 Freq: Status: Active Protocol: Activity Type Activity Date Activity User E-sign Co-sign Detail Recorded Client Recorded Date Recorded By Document 02/14/23 09:08 KW [id number] 02/14/23 09:16 KW Document 02/21/23 09:01 DL Desktop 02/21/23 09:02 DL 02/14/23 02/21/23 09:08 09:01 Wound Care Center Nurse 3 #8 L Leon -Ulcer Cleansing Rinsed/ Irrigated with Saline -Foul Odor after Cleansing No No -Primary Dressing Applied Mepilex Border, Promogran Sunni Matter -Other Dressing epifix -Primary Dressing Covered/Secured with Dry Gauze & Roll Gauze, Secured with Tape -Mepilex Border 2 -Promogran Sunni Matter 1 Left -Tubular Bandage Single Layer -Size of Tubigrip Used Size D -Size D ($) 1 Treatment Response Procedure Procedure Tolerated Well Tolerated Well Pain Scale: 0-10 Numeric Is Patient Pain Free? Yes Yes WC - Visit Discharge Discharge Condition Stable Stable Ambulatory Status Ambulatory,Cane Ambulatory Transportation Private Auto Private Auto Accompanied by Assessment/Plan Assessment/Plan (1) Venous insufficiency of both lower extremities: CODE(S): I87.2 - Venous insufficiency (chronic) (peripheral) (2) Ulcer of left lower extremity with fat layer exposed: CODE(S): L97.922 - Non-pressure chronic ulcer of unspecified part of left lower leg with fat layer exposed (3) COPD (chronic obstructive pulmonary disease): CODE(S): J44.9 - Chronic obstructive pulmonary disease, unspecified (4) DM type 2 (diabetes mellitus, type 2): CODE(S): E11.9 - Type 2 diabetes mellitus without complications QUALIFIERS: Diabetes mellitus complication status: with other specified complication 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: with longterm use Qualified Code(s): E11.69 - Type 2 diabetes mellitus with other specified complication; Z79.4 - long-term (current) use of insulin (5) Hyperlipidemia: CODE(S): E78.5 - Hyperlipidemia, unspecified QUALIFIERS: Hyperlipidemia type: unspecified Qualified Code(s): E78.5 - Hyperlipidemia, unspecified (6) Essential (primary) hypertension: CODE(S): I10 - Essential (primary) hypertension (7) Chronic diastolic (congestive) heart failure: CODE(S): I50.32 - Chronic diastolic (congestive) heart failure (8) Longstanding persistent atrial fibrillation: CODE(S): I48.11 - Longstanding persistent atrial fibrillation (9) 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 layer exposed: CODE(S): L97.222 - 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 layer exposed (10) Delayed wound healing: CODE(S): T14.8XXD - Other injury of unspecified body region, subsequent encounter PLAN: Plan Patient seen and evaluated I reviewed his previous treatment history by PCP. Patient had followed Dr. Anderson. Ulceration underwent debridement as noted in the clinical panel above. Ulceration to the left anterior lower extremity measures 1.7 cm x 2.3 cm x 0.2 cm. No signs of infection. EpiFix graft #1 applied to wound bed. Site dressedwith Adaptic touch and anchored with Steri-Strips then dressed with dry sterile dressing. He was instructed to not get the dressing wet. They are to change outer layer as needed. Wound does demonstrate some decrease in size from previous visit. Discussed continued diabetic diet to ensure proper glucose control. Recent A1c 6.4%. Discussed that this is a good standing for control of his diabetes and will aid in wound healing. Discussed with to aid in daily foot checks as her is blind. Discussed wearing shoe gear at all times and to never go barefoot. Socks include barefoot. They voiced understanding of this today. Recommend continued follow-up with PCP for continued diabetic management. Discussed adequate protein intake to continue to aid in wound healing. Also discussed Negrito supplementation to aid in wound healing. Discussed signs and symptoms with the pertaining to infection. Discussed if she notices increasing redness about the wound margin spreading up the leg, any purulent drainage from the wound site, increasing foul odor from the wound, or if he experiences fever greater than 101 degree, nausea, vomiting, chills that these are signs of progressing infection and he needs to report to the ED. They voiced understanding of this today. The following work up and care recommendations were made: Dressing: EpiFix, Adaptic touch, Steri-Strips, dry sterile dressing. Change outer dressing as needed Wash: Do not get wet Tissue growth optimization: EpiFix Offload: Ensure anterior leg is not bumped and discussed no picking at skin sites. Vascular: DP and PT pulses palpable with adequate capillary fill time. However skin demonstrates trophic changes consistent with microvascular disease. Edema: No edema currently, has history of chronic venous stasis. Recommend continued compression stocking. Infection: No signs of infection. Pain: May take [id number] Tylenol extra strength for discomfort. Host factors: DM type II, chronic venous stasis, CHF, COPD, blindness I answered all the patient's questions. To return to the wound healing center in 1 week or call sooner if the patient has any questions or concerns. 02/21/23926 <Electronically signed by Alejandro Talbot DPM> Cosigner Signature (if applicable): CC: ~ Signed [facility] [place] Work Phone: [phone] 548-894409-14-2023 History and physical note Author Alejandro Talbot [facility] [place] February 14, 2023 12:11pm Note Date/Time February 14, 2023 8:27am [facility] [address] [place] [address] H&P Exam - Wound Care 02/14/23826 MR#: [id number] Acct: [id number] Name: ARMIN TURCIOS Rep #:[id number] : 1950 72 From: Alejandro bar DPM PCP: Dr. Jessi Olguin MD Status:REG RCR Location: History of Present Illness Date of Service: 02/14/23 Chief Complaint: Left Leg Ulcer History of Wound: Mr. Turcios is a 72-year-old with PMHx of of diabetes mellitus type 2, venous insufficiency bilateral lower extremity, history of multiple ulcerations, HTN, HLD, COPD, A-fib, CHF. He presents back to the woundcare center today accompanied by his for nonhealing left lower extremity ulceration. states he has either bumped his leg on something or picked at some skin on the front of his leg creating a new wound. They state they have been following with Dr. Anderson in [place] as well as PCP Dr. Olguin. They stateoccasional use of mupirocin topical ointment but otherwise have not been applying dressings to the site. They state the wound has been present for a few weeks and has not made much progress and thus they were referred to the wound care center for continued wound healing. He denies N/V/F/chills. He has no further complaints. [facility] Medical History Ambulates with cane Anemia Anxiety and depression Back problem Blind Cardiology follow-up encounter Chronic diastolic (congestive) heart failure COPD (chronic obstructive pulmonary disease) Depression Diabetes DM type 2 (diabetes mellitus, type 2) Essential (primary) hypertension Former smoker Head trauma High cholesterol History of atrial fibrillation History of echocardiogram History of edema History of Holter monitoring Hx of transfusion of whole blood Hyperlipidemia Hypothyroidism Infected cyst of skin Injury of head and neck Insulin dependent diabetes mellitus Left ventricular diastolic dysfunction Longstanding persistent atrial fibrillation Obesity (BMI 30-39.9) Open wound of back without complication Poorly controlled type 2 diabetes mellitus Right bundle branch block (RBBB) Sepsis Shortness of breath on exertion Thyroid disease Ulcer of left lower extremity with fat layer exposed Venous insufficiency of both lower extremities Wears dentures Home Medications pravastatin 40 mg tablet 40 mg PO QHS cholesterol 07/30/14 [History Last Taken 02/12/20 16:30] rivaroxaban 20 mg tablet (Xarelto) 20 mg PO DINNER blood thinner 08/16/19 [History Last Taken 01/02/22] metformin 500 mg tablet,extended release 24 hr 1,000 mg PO DAILY 03/02/20 [History Last Taken Unknown] insulin glargine 100 unit/mL subcutaneous solution (Lantus U-100 Insulin) 10 unit subcut 0800 10/05/21 [History Last Taken Unknown] PEP device #1 ea 11/14/21 [Rx Last Taken Unknown] levothyroxine 150 mcg tablet 150 mcg PO DAILY 11/14/21 [History Last Taken 01/05/22] venlafaxine 75 mg capsule,extended release 24 hr 150 mg PO QAM 11/14/21 [History Last Taken Unknown] cholecalciferol (vitamin D3) 25 mcg (1,000 unit) capsule (Vitamin D3) 25 mcg PO DAILY 01/02/22 [History Last Taken Unknown] ferrous sulfate 325 mg (65 mg iron) tablet 325 mg PO DAILY 01/02/22 [History Last Taken Unknown] tramadol 50 mg tablet 50 mg PO Q6H PRN pain #14 tabs 01/05/22 [Rx Last Taken Unknown] albuterol sulfate 90 mcg/actuation aerosol inhaler 2 puff inhalation Q6H PRN shortness of breath or wheezing #8.5 grams 09/10/22 [Rx Last Taken Unknown] insulin lispro 100 unit/mL subcutaneous pen (Humalog KwikPen (U-100) Insulin) 12unit subcut BID 09/10/22 [History Last Taken Unknown] furosemide 40 mg tablet 20 mg PO Q OTHER DAY 12/13/22 [History Last Taken Unknown] Allergy/AdvReac Type Severity Reaction Status Date / Time shellfish derived Allergy Hives Verified 02/14/23 08:28 Family History Mother Cancer Surgical History H/O hernia repair History of inguinal hernia repair Hx of cataract surgery Hx of excision of dermoid cyst (~01/2022) Social History Smoking Status: Former smoker quit date: 06/03/09 second hand exposure: No alcohol intake: never substance use type: does not use ROS Constitutional Constitutional: Denies anorexia, change in weight, chills or fever(s) Eyes Eyes: Denies blurry vision, change in vision or double vision ENT HEENT: Denies dysphagia, nasal congestion, nasal discharge or sore throat Cardiovascular Cardiovascular: Denies chest pain, claudication, dyspnea or palpitations Respiratory/Chest Respiratory/Chest: Denies cough, pain on inspiration or wheezing Gastrointestinal Gastrointestinal: Denies abdominal pain, constipation, diarrhea, nausea or vomiting Genitourinary Genitourinary: Denies dysuria, hematuria or urinary frequency Musculoskeletal Musculoskeletal: Denies joint pain, joint stiffness or joint swelling Integumentary Integumentary: Denies lesions, pruritus or rash Neurologic Neurologic: Denies dizziness, numbness or seizures Psychiatric Psychiatric: Denies anxiety Endocrine Endocrinology: Denies cold intolerance or heat intolerance Hematologic/Lymphatic Hematologic/Lymphatic: Denies lymphadenopathy Vital Signs Vital Signs Vital Signs: 02/14/23 08:08 Temperature 97 F L Temperature Source Temporal Pulse Rate 102 H Respiratory Rate 20 H Blood Pressure 108/67 Blood Pressure Mean 80 Blood Pressure Source Monitor Weight Weight: 114.015 kg Body Mass Index (BMI) 31.4 Physical Exam Const alert, oriented x3 and no apparent distress General Appearance: cooperative HEENT normocephalic Eyes Eyes Narrative: Patient is blind, wearing dark glasses today Neck General: normal visual inspection Lymph Lymphatic: no lymphadenopathy noted and no lymphedema noted Resp normal respiratory effort Cardio regular rate and regular rhythm Extremity normal capillary refill, no joint enlargement, no calf tenderness and no pedal edema Extremity Narrative: DP pulses palpable and PT pulses weakly palpable bilateral. CFT less than 3 seconds to the digits bilateral. Hair growth absent to digits of foot bilateral. Dermatological: Skin is thin and demonstrating trophic changes bilateral lower extremity. Skin is excessively dry with peeling/flaking consistent with diabetic autonomic neuropathy and microvascular disease. There is an ulcerationnoted to the anterior aspect overlying the tibial crest with 80% mixed yellow fibrotic tissue and 20% red granular tissue at wound margin. There is crusting secondary to serous drainage at wound margin. Musculoskeletal: Muscle strength 5 of 5 age-appropriate. Decreased ankle range of motion in dorsiflexion with the knee extended without pain or crepitus bilateral. Decreased range of motion of the first metatarsophalangeal joint without pain or crepitus bilateral. There is hammertoe deformity of lesser digits bilateral without pain to palpation. Skin no rashes or lesions noted and no jaundice Neuro moves all extremities Debridement Note Debridement Note Wound debrided: Left anterior lower extremity Laterality: Left Wound Grade/Stage: Miguel stage I Type of Debridement: Excisional debridement and Selective debridement Anesthesia Used: 5% Lidocaine Gel Depth: Down to and including healthy tissue and in the subcutaneous layer Percentage of wound debrided: 100 Instrument Used: 5mm curette Tissue Removed: Fibrous, devitalized subcutaneous, biofilm, slough Severity: Fat Layer Exposed Amount of bleeding with debridement: Mild Bleeding Controlled with: Compression and gauze Patient tolerated procedure: Patient tolerated procedure well Post-Debridement Measurements and Additional Note: Post-Debridement Measurements/Treatment - Nurse 1 - General Ulcer Assessment Start: 02/14/23 08:08 Freq: Status: Active Protocol: OLIVIA Activity Type Activity Date Activity User E-sign Co-sign Detail Recorded Client Recorded Date Recorded By Document 02/14/23 08:08 [id number] 02/14/23 08:25 DL 02/14/23 08:08 - Today's Visit Information Type of service Initial Visit Arrival Mode Ambulatory,Cane Transfer Assistance Manual Transfer Assist (Other) x2 Patient Identification Verified (Name & Yes ) Patient Requires Transmission-Based No Precautions Finger Stick Blood Sugar(mg/dl) (if 187 indicated): Blood Sugar Stated by Patient Height and Weight Height 6 ft 3 in Weight 114.015 kg Weight in Pounds 251.4 lbs Weight Measurement Method Estimated by Patient Body Mass Index (BMI) 31.4 BMI Classification Obese BSA - Genna 2.42 Vital Signs Temperature (97.8 F-99.1 F) 97 F L Temperature Source Temporal Pulse Rate (60-100) 102 H Pulse Location Monitor Respiratory Rate (12-18) 20 H Respiratory rate source Observation Blood Pressure (90/60-120/80) 108/67 Blood Pressure Mean 80 Source Monitor History Since Last Visit- (Skip if this is Patient's initial visit) Left Footwear Regular Shoe Right Footwear Regular Shoe Pain Scale: 0-10 Numeric Is Patient Pain Free? Yes Lower Extremity Assessment/ Foot Assessment/ Toe Nail Assessment Left -Posterior Tibial Palpable Yes -Dorsalis Pedis Palpable Yes -Extremity Color Mottled, Hyperpigmented, Hemosiderin -Hair Growth on Legs No -Hair Growth on Toes No -Temperature of Extremity Warm -Capillary Refill Greater than 3 Seconds -Dependent Rubor No -Blanched when Elevated No -Lipodermatosclerosis No -Other Deformity No -Prior Foot Ulcer No -Charcot Joint No -Prior Amputation No -Thick Yes -Discolored Yes -Deformed Yes -Improper Length & Hygeine No Right -Posterior Tibial Palpable Yes -Dorsalis Pedis Palpable Yes -Extremity Color Mottled, Hyperpigmented, Hemosiderin -Hair Growth on Legs No -Hair Growth on Toes No -Temperature of Extremity Warm -Capillary Refill Greater than 3 Seconds -Dependent Rubor No -Blanched when Elevated No -Lipodermatosclerosis No -Other Deformity No -Prior Foot Ulcer No -Charcot Joint No -Thick Yes -Discolored Yes -Deformed Yes -Improper Length & Hygeine No WC - Nurse 1 - General Ulcer Measurement Start: 02/14/23 08:08 Freq: Status: Active Protocol: Activity Type Activity Date Activity User E-sign Co-sign Detail Recorded Client Recorded Date Recorded By Document 02/14/23 08:08 MARCELO [id number] 02/14/23 08:25 DL 02/14/23 08:08 Wound Center Nurse 1 #8 L Leon -Current Size (cm) - Length 1.8 -Current Size (cm) - Width 2.2 -Current Size (cm) - Depth 0.2 -Total Square Cm 3.96 -Photo Taken Yes -Classification - Thickness Full Thickness without Exposed Support Structure -Exudate Amt Medium -Exudate Type Serosanguineous -Wound Margin Distinct, Outline Attached -Granulation Amt Small (1-33%) -Granulation Quality [place] -Necrosis Amt Large (67-100%) -Necrotic Tissue Type Adherent Slough -Structure Exposed N/A -Texture (Jada-wound Skin Appearance) Scarring -Moisture (Jada-wound Skin Appearance) Dry/Scaly -Color (Jada-wound Skin Appearance) Hemosiderin Staining -Temperature (Jada-wound Skin No Abnormality Appearance) (Pt Warm) -Tenderness on Palpation (Jada-wound No Skin Appearance) -Ulcer Cleansing Soap and Water -Foul Odor after Cleansing No -Anesthetic Used 5% Lidocaine Gel Right Calf (cm) 43 Right Ankle (cm) 23 Left Calf (cm) 38.5 Left Ankle (cm) 21.7 Assessment/Plan Assessment/Plan (1) Venous insufficiency of both lower extremities: CODE(S): I87.2 - Venous insufficiency (chronic) (peripheral) (2) Ulcer of left lower extremity with fat layer exposed: CODE(S): L97.922 - Non-pressure chronic ulcer of unspecified part of left lower leg with fat layer exposed (3) COPD (chronic obstructive pulmonary disease): CODE(S): J44.9 - Chronic obstructive pulmonary disease, unspecified (4) DM type 2 (diabetes mellitus, type 2): CODE(S): E11.9 - Type 2 diabetes mellitus without complications QUALIFIERS: Diabetes mellitus longterm insulin use: with longterm use Diabetes mellitus complication status: with other specified complication Qualified Code(s): E11.69 - Type 2 diabetes mellitus with other specified complication; Z79.4 - long-term (current) use of insulin (5) Hyperlipidemia: CODE(S): E78.5 - Hyperlipidemia, unspecified QUALIFIERS: Hyperlipidemia type: unspecified Qualified Code(s): E78.5 - Hyperlipidemia, unspecified (6) Essential (primary) hypertension: CODE(S): I10 - Essential (primary) hypertension (7) Chronic diastolic (congestive) heart failure: CODE(S): I50.32 - Chronic diastolic (congestive) heart failure (8) Longstanding persistent atrial fibrillation: CODE(S): I48.11 - Longstanding persistent atrial fibrillation (9) 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 layer exposed: CODE(S): L97.222 - 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 layer exposed (10) Delayed wound healing: CODE(S): T14.8XXD - Other injury of unspecified body region, subsequent encounter PLAN: Plan Patient seen and evaluated I reviewed his previous treatment history by PCP. Patient had followed Dr. Anderson. Ulceration underwent debridement as noted in the clinical panel above. Ulceration to the left anterior lower extremity measures 1.9 cm x 2.5 cm x 0.2 cm. No signs of infection. Sunni applied to wound bed with dry sterile dressing. They will change dressing daily. At this time due to previous local wound care treatment with delayed wound healing we will seek approval for advanced wound care product for application atnext visit. Discussed continued diabetic diet to ensure proper glucose control. Recent A1c 6.4%. Discussed that this is a good standing for control of his diabetes and will aid in wound healing. Discussed with to aid in daily foot checks as her is blind. Discussed wearing shoe gear at all times and to never go barefoot. Socks include barefoot. They voiced understanding of this today. Recommend continued follow-up with PCP for continued diabetic management. Discussed adequate protein intake to continue to aid in wound healing. Also discussed Negrito supplementation to aid in wound healing. Discussed signs and symptoms with the pertaining to infection. Discussed if she notices increasing redness about the wound margin spreading up the leg, any purulent drainage from the wound site, increasing foul odor from the wound, or if he experiences fever greater than 101 degree, nausea, vomiting, chills that these are signs of progressing infection and he needs to report to the ED. They voiced understanding of this today. The following work up and care recommendations were made: Dressing: Sunni and dry sterile dressing. Change daily. Wash: Soap and water Tissue growth optimization: Sunni Offload: Ensure anterior leg is not bumped and discussed no picking at skin sites. Vascular: DP and PT pulses palpable with adequate capillary fill time. However skin demonstrates trophic changes consistent with microvascular disease. Edema: No edema currently, has history of chronic venous stasis. Recommend continued compression stocking. Infection: No signs of infection. Pain: May take [id number] Tylenol extra strength for discomfort. Host factors: DM type II, chronic venous stasis, CHF, COPD, blindness I answered all the patient's questions. To return to the wound healing center in 1 week or call sooner if the patient has any questions or concerns. 02/14/23 1211 <Electronically signed by Alejandro Talbot DPM> Marceligner Signature (if applicable): CC: ~ Signed [facility] [place] Work Phone: Evaluation note* Diagnosis Onset Date Resolution Status Bronchiectasis chronic Chronic diastolic (congestive) heart failure chronic COPD (chronic obstructive pulmonary disease) chronic Ulcer of left lower extremity with fat layer exposed acute Venous insufficiency of both lower extremities acute DM type 2 (diabetes mellitus, type 2) chronic [facility] [place] Work Phone: Evaluation note* Diagnosis Onset Date Resolution Status Ulcer of left lower extremity with fat layer exposed acute Venous insufficiency of both lower extremities acute DM type 2 (diabetes mellitus, type 2) chronic Chronic diastolic (congestive) heart failure chronic Essential (primary) hypertension chronic Hyperlipidemia chronic Longstanding persistent atrial fibrillation chronic Ulcer of left lower extremity with fat layer exposed acute Venous insufficiency of both lower extremities acute DM type 2 (diabetes mellitus, type 2) chronic [facility] [place] Work Phone: Evaluation note* Diagnosis Onset Date Resolution Status Ulcer of left lower extremity with fat layer exposed acute Venous insufficiency of both lower extremities acute DM type 2 (diabetes mellitus, type 2) chronic Chronic diastolic (congestive) heart failure chronic Essential (primary) hypertension chronic Hyperlipidemia chronic Longstanding persistent atrial fibrillation chronic Ulcer of left lower extremity with fat layer exposed acute Venous insufficiency of both lower extremities acute DM type 2 (diabetes mellitus, type 2) chronic Infected cyst of skin acute Open wound of back without complication acute DM type 2 (diabetes mellitus, type 2) chronic Infected cyst of skin acute [facility] [place] Work Phone: Evaluation note* Diagnosis Onset Date Resolution Status Infected cyst of skin acute Open wound of back without complication acute DM type 2 (diabetes mellitus, type 2) chronic Infected cyst of skin acute H/O excision of epidermal inclusion cyst acute H/O excision of epidermal inclusion cyst acute Bronchiectasis chronic H/O excision of epidermal inclusion cyst acute [facility] [place] Work Phone: Evaluation noteNo assessment information available [facility] [place] Work Phone: Evaluation note* Diagnosis Onset Date Resolution Status Chronic diastolic (congestive) heart failure chronic Essential (primary) hypertension chronic Hyperlipidemia chronic Longstanding persistent atrial fibrillation chronic Delayed wound healing acute Ulcer of left lower extremity with fat layer exposed acute Venous insufficiency of both lower extremities acute Chronic diastolic (congestive) heart failure chronic COPD (chronic obstructive pulmonary disease) chronic DM type 2 (diabetes mellitus, type 2) chronic Essential (primary) hypertension chronic Hyperlipidemia chronic Longstanding persistent atrial fibrillation chronic Non-pressure chronic ulcer o f left calf with fat layer exposed chronic [facility] [place] Work Phone: Evaluation note* Diagnosis Onset Date Resolution Status Chronic diastolic (congestive) heart failure chronic Essential (primary) hypertension chronic Hyperlipidemia chronic Longstanding persistent atrial fibrillation chronic Delayed wound healing acute Ulcer of left lower extremity with fat layer exposed acute Venous insufficiency of both lower extremities acute Chronic diastolic (congestive) heart failure chronic COPD (chronic obstructive pulmonary disease) chronic DM type 2 (diabetes mellitus, type 2) chronic Essential (primary) hypertension chronic Hyperlipidemia chronic Longstanding persistent atrial fibrillation chronic Non-pressure chronic ulcer o f left calf with fat layer exposed chronic Bronchiectasis chronic Chronic diastolic (congestive) heart failure chronic COPD (chronic obstructive pulmonary disease) chronic Delayed wound healing acute Venous insufficiency of both lower extremities acute Chronic diastolic (congestive) heart failure chronic COPD (chronic obstructive pulmonary disease) chronic DM type 2 (diabetes mellitus, type 2) chronic Hyperlipidemia chronic Longstanding persistent atrial fibrillation chronic Non-pressure 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 layer exposed chronic Non-pressure chronic ulcer o f left calf with fat layer exposed chronic [facility] [place] Work Phone: Evaluation note* Diagnosis Onset Date Resolution Status Delayed wound healing acute Ulcer of left lower extremity with fat layer exposed acute Venous insufficiency of both lower extremities acute Chronic diastolic (congestive) heart failure chronic COPD (chronic obstructive pulmonary disease) chronic DM type 2 (diabetes mellitus, type 2) chronic Essential (primary) hypertension chronic Hyperlipidemia chronic Longstanding persistent atrial fibrillation chronic Non-pressure chronic ulcer o f left calf with fat layer exposed chronic Bronchiectasis chronic Chronic diastolic (congestive) heart failure chronic COPD (chronic obstructive pulmonary disease) chronic Delayed wound healing acute Venous insufficiency of both lower extremities acute Chronic diastolic (congestive) heart failure chronic COPD (chronic obstructive pulmonary disease) chronic DM type 2 (diabetes mellitus, type 2) chronic Hyperlipidemia chronic Longstanding persistent atrial fibrillation chronic Non-pressure 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 layer exposed chronic Non-pressure chronic ulcer o f left calf with fat layer exposed chronic Delayed wound healing acute Venous insufficiency of both lower extremities acute Chronic diastolic (congestive) heart failure chronic COPD (chronic obstructive pulmonary disease) chronic DM type 2 (diabetes mellitus, type 2) chronic Hyperlipidemia chronic Longstanding persistent atrial fibrillation chronic Non-pressure 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 layer exposed chronic Non-pressure chronic ulcer o f left calf with fat layer exposed chronic [facility] [place] Work Phone: Evaluation note* Diagnosis Onset Date Resolution Status Delayed wound healing acute Ulcer of left lower extremity with fat layer exposed acute Venous insufficiency of both lower extremities acute Chronic diastolic (congestive) heart failure chronic COPD (chronic obstructive pulmonary disease) chronic DM type 2 (diabetes mellitus, type 2) chronic Essential (primary) hypertension chronic Hyperlipidemia chronic Longstanding persistent atrial fibrillation chronic Non-pressure chronic ulcer o f left calf with fat layer exposed chronic Bronchiectasis chronic Chronic diastolic (congestive) heart failure chronic COPD (chronic obstructive pulmonary disease) chronic Delayed wound healing acute Venous insufficiency of both lower extremities acute Chronic diastolic (congestive) heart failure chronic COPD (chronic obstructive pulmonary disease) chronic DM type 2 (diabetes mellitus, type 2) chronic Hyperlipidemia chronic Longstanding persistent atrial fibrillation chronic Non-pressure 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 layer exposed chronic Non-pressure chronic ulcer o f left calf with fat layer exposed chronic Delayed wound healing acute Venous insufficiency of both lower extremities acute Chronic diastolic (congestive) heart failure chronic COPD (chronic obstructive pulmonary disease) chronic DM type 2 (diabetes mellitus, type 2) chronic Hyperlipidemia chronic Longstanding persistent atrial fibrillation chronic Non-pressure 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 layer exposed chronic Non-pressure chronic ulcer o f left calf with fat layer exposed chronic Delayed wound healing acute Venous insufficiency of both lower extremities acute Chronic diastolic (congestive) heart failure chronic COPD (chronic obstructive pulmonary disease) chronic DM type 2 (diabetes mellitus, type 2) chronic Hyperlipidemia chronic Longstanding persistent atrial fibrillation chronic Non-pressure 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 layer exposed chronic Non-pressure chronic ulcer o f left calf with fat layer exposed chronic [facility] [place] Work Phone: Evaluation note* Diagnosis Onset Date Resolution Status Bronchiectasis chronic Chronic diastolic (congestive) heart failure chronic COPD (chronic obstructive pulmonary disease) chronic Delayed wound healing acute Venous insufficiency of both lower extremities acute Chronic diastolic (congestive) heart failure chronic COPD (chronic obstructive pulmonary disease) chronic DM type 2 (diabetes mellitus, type 2) chronic Hyperlipidemia chronic Longstanding persistent atrial fibrillation chronic Non-pressure 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 layer exposed chronic Non-pressure chronic ulcer o f left calf with fat layer exposed chronic Delayed wound healing acute Venous insufficiency of both lower extremities acute Chronic diastolic (congestive) heart failure chronic COPD (chronic obstructive pulmonary disease) chronic DM type 2 (diabetes mellitus, type 2) chronic Hyperlipidemia chronic Longstanding persistent atrial fibrillation chronic Non-pressure 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 layer exposed chronic Non-pressure chronic ulcer o f left calf with fat layer exposed chronic Delayed wound healing acute Venous insufficiency of both lower extremities acute Chronic diastolic (congestive) heart failure chronic COPD (chronic obstructive pulmonary disease) chronic DM type 2 (diabetes mellitus, type 2) chronic Hyperlipidemia chronic Longstanding persistent atrial fibrillation chronic Non-pressure 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 layer exposed chronic Non-pressure chronic ulcer o f left calf with fat layer exposed chronic Delayed wound healing acute Venous insufficiency of both lower extremities acute Chronic diastolic (congestive) heart failure chronic COPD (chronic obstructive pulmonary disease) chronic DM type 2 (diabetes mellitus, type 2) chronic Hyperlipidemia chronic Longstanding persistent atrial fibrillation chronic Non-pressure 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 layer exposed chronic Non-pressure chronic ulcer o f left calf with fat layer exposed chronic [facility] [place] Work Phone: Evaluation note* Diagnosis Onset Date Resolution Status Delayed wound healing acute Venous insufficiency of both lower extremities acute Chronic diastolic (congestive) heart failure chronic COPD (chronic obstructive pulmonary disease) chronic DM type 2 (diabetes mellitus, type 2) chronic Hyperlipidemia chronic Longstanding persistent atrial fibrillation chronic Non-pressure 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 layer exposed chronic Non-pressure chronic ulcer o f left calf with fat layer exposed chronic Delayed wound healing acute Venous insufficiency of both lower extremities acute Chronic diastolic (congestive) heart failure chronic COPD (chronic obstructive pulmonary disease) chronic DM type 2 (diabetes mellitus, type 2) chronic Hyperlipidemia chronic Longstanding persistent atrial fibrillation chronic Non-pressure 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 layer exposed chronic Non-pressure chronic ulcer o f left calf with fat layer exposed chronic Delayed wound healing acute Venous insufficiency of both lower extremities acute Chronic diastolic (congestive) heart failure chronic COPD (chronic obstructive pulmonary disease) chronic DM type 2 (diabetes mellitus, type 2) chronic Hyperlipidemia chronic Longstanding persistent atrial fibrillation chronic Non-pressure 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 layer exposed chronic Non-pressure chronic ulcer o f left calf with fat layer exposed chronic Chronic diastolic (congestive) heart failure chronic Essential (primary) hypertension chronic Hyperlipidemia chronic Longstanding persistent atrial fibrillation chronic Delayed wound healing acute Venous insufficiency of both lower extremities acute Chronic diastolic (congestive) heart failure chronic COPD (chronic obstructive pulmonary disease) chronic DM type 2 (diabetes mellitus, type 2) chronic Hyperlipidemia chronic Non-pressure 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 layer exposed chronic Non-pressure chronic ulcer o f left calf with fat layer exposed chronic [facility] [place] Work Phone: Evaluation note* Diagnosis Onset Date Resolution Status Delayed wound healing acute Venous insufficiency of both lower extremities acute Chronic diastolic (congestive) heart failure chronic COPD (chronic obstructive pulmonary disease) chronic DM type 2 (diabetes mellitus, type 2) chronic Hyperlipidemia chronic Longstanding persistent atrial fibrillation chronic Non-pressure 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 layer exposed chronic Non-pressure chronic ulcer o f left calf with fat layer exposed chronic Delayed wound healing acute Venous insufficiency of both lower extremities acute Chronic diastolic (congestive) heart failure chronic COPD (chronic obstructive pulmonary disease) chronic DM type 2 (diabetes mellitus, type 2) chronic Hyperlipidemia chronic Longstanding persistent atrial fibrillation chronic Non-pressure 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 layer exposed chronic Non-pressure chronic ulcer o f left calf with fat layer exposed chronic Chronic diastolic (congestive) heart failure chronic Essential (primary) hypertension chronic Hyperlipidemia chronic Longstanding persistent atrial fibrillation chronic Delayed wound healing acute Venous insufficiency of both lower extremities acute Chronic diastolic (congestive) heart failure chronic COPD (chronic obstructive pulmonary disease) chronic DM type 2 (diabetes mellitus, type 2) chronic Hyperlipidemia chronic Non-pressure 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 layer exposed chronic Non-pressure chronic ulcer o f left calf with fat layer exposed chronic Delayed wound healing acute Venous insufficiency of both lower extremities acute Chronic diastolic (congestive) heart failure chronic COPD (chronic obstructive pulmonary disease) chronic DM type 2 (diabetes mellitus, type 2) chronic Essential (primary) hypertension chronic Hyperlipidemia chronic Non-pressure 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 layer exposed chronic Non-pressure chronic ulcer o f left calf with fat layer exposed chronic [facility] [place] Work Phone: Evaluation note* Diagnosis Onset Date Resolution Status Delayed wound healing acute Venous insufficiency of both lower extremities acute Chronic diastolic (congestive) heart failure chronic COPD (chronic obstructive pulmonary disease) chronic DM type 2 (diabetes mellitus, type 2) chronic Hyperlipidemia chronic Longstanding persistent atrial fibrillation chronic Non-pressure 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 layer exposed chronic Non-pressure chronic ulcer o f left calf with fat layer exposed chronic Chronic diastolic (congestive) heart failure chronic Essential (primary) hypertension chronic Hyperlipidemia chronic Longstanding persistent atrial fibrillation chronic Delayed wound healing acute Venous insufficiency of both lower extremities acute Chronic diastolic (congestive) heart failure chronic COPD (chronic obstructive pulmonary disease) chronic DM type 2 (diabetes mellitus, type 2) chronic Hyperlipidemia chronic Non-pressure 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 layer exposed chronic Non-pressure chronic ulcer o f left calf with fat layer exposed chronic Delayed wound healing acute Venous insufficiency of both lower extremities acute Chronic diastolic (congestive) heart failure chronic COPD (chronic obstructive pulmonary disease) chronic DM type 2 (diabetes mellitus, type 2) chronic Essential (primary) hypertension chronic Hyperlipidemia chronic Non-pressure 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 layer exposed chronic Non-pressure chronic ulcer o f left calf with fat layer exposed chronic Delayed wound healing acute Venous insufficiency of both lower extremities acute Chronic diastolic (congestive) heart failure chronic COPD (chronic obstructive pulmonary disease) chronic DM type 2 (diabetes mellitus, type 2) chronic Hyperlipidemia chronic Longstanding persistent atrial fibrillation chronic Non-pressure 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 layer exposed chronic [facility] [place] Work Phone: History and physical note Author Shonda Gaston [facility] [place] Note Date/Time September 01, 2024 10:0 1pm [facility] Medical Records Department [address] [place] [id number] H&P Exam - Hospitalist 09/01/242100 MR#: [id number] Acct: [id number] Name: LATRICE TURCIOS Rep #:[id number] : 1950 74 From: Shonda Gsaton MD PCP: Dr. Jessi Olguin MD Status:ADM IN Location: [place] [id number] HPI - General General Date of Admission: 09/01/24 Date of Service: 09/01/24 Chief Complaint: Chest pain HPI Narrative The patient is a 74 y/o M w/ PMHx: Chronic COPD, Former tobacco use, CKD stage II per GFR trending, HFpEF, Chronic anemia/Fe deficiency anemia, Anxiety and Depression, Diabetes mellitus type II, CAD s/p PCI, Hx cardiac pauses/VT/bradycardia w/ syncope and cardiac arrest s/p AICD, Obesity, Hypothyroidism who presents to the [facility] ED on 09/01/24 with history of onset waxingand waning chest discomfort in the substernal and epigastric region described assharp worsened by movement and deep inspiratory effort with associated diaphoresis and lightheadedness starting on day of presentation initially when he been sitting at the kitchen table with reporting that he had at some point during the event appeared pale, diaphoretic and cold with no recent dyspnea, cough or URI type symptoms but given presentation and recent history prompted ED evaluation to be cautious. In the ED patient notes that his chest feels better but he does still have discomfort especially deep inspiratory effort. He states right now his mid abdominal region is uncomfortable and he points to the periumbilical region. He notes that he did have an issue with constipation was placed on bowel regimen but he recently stopped this when he transition back to home as he had been in a skilled facility. He notes that today he had a small bowel movement and did have some mild nausea and possibly emesis times 1 per but unclear. She notes has been tolerating a diet and has not had any issues as far as oral intake previous to this. He has been moreconstipated recently. Workup in the ED included T98.1, heart rate 78, BP initially 79/44, respiratory rate 18, 95% on room air with most recent repeat assessment heart rate 71, BP 112/70, respiratory rate 20, 96% on room air, CBC with WC 6.8, hemoglobin 11.4, MCV 94.9, platelet 131 without marked shift, BMP with BUN/creatinine 23/0.88, GFR 89, glucose 165, initial troponin 23, repeat delta 20, lipase 21, chest x-ray with patchy bibasilar airspace opacities concerning for infiltrates, EKG with paced rhythm with left bundle branch block with no acute evidence of ischemia unchanged from previous. In the ED patient administered IV Rocephin and azithromycin as well as full-strength aspirin therapy. Ambulatory pulse ox performed and patient unfortunately desaturated down to 88% with ambulation. Given curb score 65 of 2 and port score 76 patientplan of care to be admitted to the hospital for treatment of pneumonia. [facility] Medical History Coronary artery disease Kidney stones Atrial fibrillation Wears dentures Blind Depression Insulin dependent diabetes mellitus Ambulates with cane Anemia High cholesterol Injury of head and neck Former smoker History of Holter monitoring History of echocardiogram Cardiology follow-up encounter History of atrial fibrillation Open wound of back without complication Venous insufficiency of both lower extremities Ulcer of left lower extremity with fat layer exposed Longstanding persistent atrial fibrillation Left ventricular diastolic dysfunction Chronic diastolic (congestive) heart failure Right bundle branch block (RBBB) Essential (primary) hypertension COPD (chronic obstructive pulmonary disease) Anxiety and depression Obesity (BMI 30-39.9) Hyperlipidemia Hypothyroidism DM type 2 (diabetes mellitus, type 2) Hx of transfusion of whole blood Home Medications ?Medication ?Instructions ?Recorded ?Last Taken ?Type metformin 500 mg tablet,extended 1,000 mg PO DAILY 09/01/24 History release 24 hr insulin glargine 100 unit/mL 10 unit subcut 0800 10/0509/01/24 History subcutaneous solution (Lantus U-100 Insulin) PEP device #1 ea 11/14/21 Unknown Rx ferrous sulfate 325 mg (65 mg 325 mg PO DAILY suppleme nt 01/02/22 09/01/24 History iron) tablet acetaminophen 500 mg tablet 1,000 mg PO Q8H PRN pain 0 08/03/24 Unknown History buspirone 7.5 mg tablet 7.5 mg PO BID 08/03/2409/01 History cholecalciferol (vitamin D3) 100 100 mcg PO DAILY 08/2509/01/24 History mcg (4,000 unit) tablet hydroxyzine pamoate 50 mg capsule 50 mg PO BID 5 09/01/24 History insulin lispro 100 unit/mL 12 unit subcut BIDAC 09/01/24 History subcutaneous pen (Humalog KwikPen (U-100) Insulin) lisinopril 5 mg tablet 5 mg PO DAILY 08/03/2409/01 History multivitamin 1 tab PO DAILY 08/03/2406/27 History atorvastatin 40 mg tablet 40 mg PO QHS 09/01/24 History azithromycin 250 mg tablet 250 mg PO DAILY #4 TABLETS 09/01/24 Unknown Rx clopidogrel 75 mg tablet 75 mg PO DAILY 09/01/2406/27 History levothyroxine 175 mcg tablet 175 mcg PO DAILY 09/01/24 09/01/24 History metoprolol succinate 25 mg 25 mg PO DAILY 09/01/2406/27 History tablet,extended release 24 hr rivaroxaban 20 mg tablet 20 mg PO DAILY 09/01/2406/27 History venlafaxine 75 mg capsule,extended 75 mg PO DAILY 06/2709/01/24 History release 24 hr Allergy/AdvReac Type Severity Reaction Status Date / Time shellfish derived Allergy Hives Verified 09/01/24 08:06 Family History Mother Cancer Sister Heart disease Father , age 97, no medical history per family reported, not taking any medications. No problems noted. Surgical History ICD (implantable cardioverter-defibrillator) in place History of coronary artery stent placement (06/25/24) Hx of excision of dermoid cyst (~01/2022) Hx of cataract surgery History of inguinal hernia repair H/O hernia repair Social History household members: spouse Smoking Status: Former smoker quit date: 06/03/09 second hand exposure: No alcohol intake: never substance use type: does not use ROS ROS Narrative Admission Review of Systems: CONSTITUTIONAL: No weight loss, fever, chills, + weakness or fatigue. HEENT: + Chronic right eye vision loss. Eyes: No double vision or yellow sclerae. Ears, Nose, Throat: No hearing loss, sneezing, congestion, runny nose or sore throat. SKIN: No rash or itching, lesions, wounds. CARDIOVASCULAR: + Chest pain, pruritic chest discomfort. No palpitations, edema, orthopnea, syncopal events. RESPIRATORY: + Chronic cough. No shortness of breath, markedly productive sputum, wheezing, hemoptysis. GASTROINTESTINAL: + Currently anorexia, episode of nausea and emesis x 1, constipation, abdominal discomfort. No diarrhea, melena, BRBPR. GENITOURINARY: No dysuria, frequency, urgency or retention. NEUROLOGICAL: No headache, dizziness, syncope, paralysis, ataxia, numbness or tingling in the extremities, focal weakness, change in bowel or bladder control,seizure. MUSCULOSKELETAL: + muscle, back pain, joint pain or stiffness. HEMATOLOGIC: + Chronic anemia, easy bleeding/bruising LYMPHATICS: No enlarged nodes. No history of splenectomy. PSYCHIATRIC: + History of anxiety and depression. ENDOCRINOLOGIC: No reports of sweating, cold or heat intolerance. No polyuria orpolydipsia. ALLERGIES: + History of hives. Vital Signs Vital Signs Vital Signs: 09/01/24 16:42 09/01/24 17:41 09/01/24 17:42 Temperature 98.1 F 98.2 F Temperature Source Oral Pulse Rate 74 72 78 Respiratory Rate 17 15 19 H Blood Pressure 106/71 122/68 H 148/77 H Blood Pressure Mean 82 86 100 Pulse Ox 95 97 95 Oxygen Delivery Method Room Air Nasal Cannula Oxygen Flow Rate (L/min) 2 09/01/24 18:00 09/01/24 18:52 09/01/24 20:00 Temperature Temperature Source Pulse Rate 72 71 71 Respiratory Rate 18 14 20 H Blood Pressure 120/66 104/73 112/70 Blood Pressure Mean 84 83 84 Pulse Ox 98 97 96 Oxygen Delivery Method Nasal Cannula Room Air Room Air Oxygen Flow Rate (L/min) 2 09/01/24 20:49 09/01/24 20:51 Temperature 97.6 F L 97.6 F L Temperature Source Oral Pulse Rate 71 71 Respiratory Rate 18 18 Blood Pressure 111/73 117/73 Blood Pressure Mean 85 87 Pulse Ox 97 94 Oxygen Delivery Method Room Air Oxygen Flow Rate (L/min) Weight Weight: 240 lb 4.862 oz Body Mass Index (BMI) 30.0 Physical Exam Narrative R eye legally blind Physical Examination: General: Awake, alert, oriented to self, place, recent events, irritable, follows commands however, seated upright in ED bed, complaining of no abdominal discomfort, notes no current chest discomfort but does have discomfort with deepinspiratory effort. Skin: Normal color, normal turgor, no icterus, no cyanosis except occasional stage ecchymoses, abrasion, significant bilateral lower extremity venous stasis skin changes. HEENT: AT/NC, EOM left eye intact, chronic right eye alteration/blindness, mildly dry MM, no carotid bruits or JVD noted. Lungs: Diminished, greater bases, mildly increased respiratory rate but no distress, no rales, ronchi or wheezing. Heart: Paced; no gallop, rub audible. Abdomen: Soft, mild generalized abdominal discomfort with palpation but no rebound or guarding, no marked distention, significantly diminished bowel soundsdiffusely, no obvious HSM. Extremities: No cyanosis, no clubbing, chronic significant bilateral lower extremity venous stasis skin changes, no marked evidence of chronic pitting edema present. Neurological: Patient awake, alert, oriented as no, cognitive function intact; pupils equally reactive to light and accommodation, cranial nerves grossly normal aside from chronic right eye vision loss, moving all 4 extremities, no focal deficits, strength severely globally decreased. Psychiatric: Affect appears uncomfortable, no acute evidence of depressive or anxiety feelings but does have underlying history. Results Lab / Micro Data 09/01/24 16:45 09/01/24 16:45 Labs: Laboratory Results - last 24 hr 09/01/24 16:45: WBC 6.8, RBC 3.69 L, Hgb 11.4 L, Hct 35.0 L, MCV 94.9 H, MCH 30.9, MCHC 32.6, RDW Std Deviation 49.3 H, RDW Coeff of Marifer 14.2, Plt Count 131 L, MPV 12.8 H, Immature Gran % (Auto) 0.700, Neut % (Auto) 56.2, Lymph % (Auto) 30.1, [place] % (Auto) 10.7 H, Eos % (Auto) 1.9, Baso % (Auto) 0.4, Absolute Neuts (auto) 3.8, Absolute Lymphs (auto) 2.05, Nucleated RBC % 0, Sodium 136, Potassium 4.4, Chloride 102, Carbon Dioxide 22.6, Anion Gap 12, BUN 23 H, Creatinine 0.88, Estim Creat Clear Calc 95.25, Est GFR (MDRD) Non-Af 89, BUN/Creatinine Ratio 25.9 H, Glucose 165 H, Calcium 9.2, Troponin T High Sens 23 H, Lipase 21 09/01/24 18:40: Troponin T Hi Sens 2 Hr 20 Imaging Radiology Impression Chest X-Ray 09/01/24 17:50 IMPRESSION: Patchy bibasilar airspace opacities, concerning for infiltrates. Elevated left hemidiaphragm. [facility] & Plan Assessment/Plan (1) Chest pain: (2) Pneumonia: PLAN: Plan The patient is a 74 y/o M w/ PMHx: Chronic COPD, Former tobacco use, CKD stage II per GFR trending, HFpEF, Chronic anemia/Fe deficiency anemia, Anxiety and Depression, Diabetes mellitus type II, CAD s/p PCI, Hx cardiac pauses/VT/bradycardia w/ syncope and cardiac arrest s/p AICD, Obesity, Hypothyroidism who presents to the [facility] ED on 09/01/24 with history of onset waxingand waning chest discomfort in the substernal and epigastric region described assharp worsened by movement and deep inspiratory effort with associated diaphoresis and lightheadedness starting on day of presentation initially when he been sitting at the kitchen table with reporting that he had at some point during the event appeared pale, diaphoretic and cold with no recent dyspnea, cough or URI type symptoms but given presentation and recent history prompted ED evaluation to be cautious. #1. Acute hypoxia secondary to bilateral community-acquired pneumonia with associated clear chest discomfort in addition to vague abdominal discomfort w/ episode N/V, constipation: Will admit to PCU to be cautious, will continue to cycle cardiac enzymes given recent history, maintain on oxygen with wean as tolerated to room air, continue ATC duonebs, PRN albuterol, maintain on IV Rocephin and Azithromycin, HOB, IS parameters w/ pending sputum cultures, full respiratory viral panel, procalcitonin and urine antigens. KUB requested given recent constipation after stopping his bowel regimen with episode N/V x 1 at home per report. PT/OT/case management consulted for discharge planning. #2. Thrombocytopenia, acute on chronic, possibly reactive secondary to #1: Admission platelets 131, in the past has occasionally been remotely lower however has been more normal range over the last couple years, will continue to trend CBC. #3. Chronic COPD: Per current list does not appear to be on any chronic inhalers, will maintain on ATC DuoNeb therapy cautiously given PAF history, PRN albuterol, HOB, IS parameters. #4. HFpEF: Most recent echocardiogram noted 06/27/2024 with limited study, LVEF 70% with no regional wall motion abnormalities. Cautiously hydrate if necessarygiven history, continue Xarelto, Plavix, statin, metoprolol, lisinopril home regimen, not on chronic diuretic therapy per current list. #5. PAF: We will continue patient home Xarelto regimen in addition to metoprolol. #6. Cardiac pauses, bradycardia, VT with associated cardiac arrest: Status postAICD placement, device assessment requested to be cautious, admitted 06/2024 initially for syncopal event eventually taken to the cardiac [employer] with stenting of the RCA in addition to the ICD given cardiac pauses and arrhythmia. Will continue metoprolol regimen. Per most recent cardiology note/06/27 EP follow-up is arranged for next month at [place]. #7. CAD: Status post PCI 06/25/2024, will continue Xarelto, Plavix, statin, metoprolol, lisinopril home regimen. Encourage continued outpatient follow-up with cardiology as previously arranged. #8. Chronic Kidney Disease Stage II per GFR trending although occasionally has vacillated to stage I: Admission BUN/Cr 23/0.88, GFR 89, baseline renal functionprimarily 0.8-1.0, repeat BMP in AM. #9. Anxiety and depression: We will continue patient home venlafaxine, BuSpar and hydroxyzine home regimen. #10. Diabetes mellitus type II: Hold oral home regimen, continue home insulin regimen, clear liquids until assure oral intake tolerated although awaiting KUB as noted and if appropriate may transition to NPO status if needed, accu checks w/ ISS. #11. Hypertension: Continue home regimen including lisinopril, metoprolol, PRN hydralazine. #12. Hyperlipidemia: Continue home statin regimen. #13. Chronic macrocytic anemia/iron deficiency anemia: Admission hemoglobin 11.4, MCV 94.9, baseline hemoglobin primarily 10-11 range, stable, continue to trend, continue iron supplementation. #14. Hypothyroidism: We will continue patient on levothyroxine regimen. #15. Obesity: Weight loss and lifestyle changes encouraged. #16. Former tobacco use: Encourage continued tobacco cessation. #17. DVT prophylaxis: Will continue patient Xarelto regimen cautiously, monitorCBC. #18. CODE status: Patient HCPOA and living will not in place but was present notes she would be the medical decision-maker if necessary. Discussed CODE status at length including difference between FULL code, DNR-CCA and DNR-CCstatus. Following discussions about the differences in these status, requested eventually Full Code status although he vacillated initially in his decision. Recommended that he think about it over the next 24 hours and he prefers to change his status to notify staff. Advanced Care Planning Face to Face Time: 16 minutes. Charges/Coding Visit Charges Inpatient E&M: 49682 Init Hosp L3 Procedures Hospitalists Procedures: 33388 Advncd Care Plan 30 Min 09/01/241 <Electronically signed by Shonda Gaston MD> Cosigner Signature (if applicable): CC: Dr. Shonda Gaston MD; Dr. Jessi Olguin MD~ Signed [facility] [place] Work Phone: Hospital course Narrative No data available for this section [facility] Summary Purpose Family History No Family History Records Found Relationship Condition Age at Onset Recorded Date/T sayra mother Malignant neoplasm Unknown Relationship Condition Age at Onset Recorded Date/T sayra mother Malignant neoplasm Unknown sister Cardiac disease Unknown Advance Directives No Advanced Directives Records Found Advance Directive Response Recorded Date/ Time Living Will No August 14, 2020 4:15pm Power of Cardiology Specialist Yes August 14 4:15pm Advance Directive Response Recorded Date/ Time Living Will No January 02, 2022 1:25pm Power of Cardiology Specialist No January 02 1:25pm Advance Directive Response Recorded Date/ Time Living Will No July 10 10:35pm Power of Cardiology Specialist No July 10, 2022 10:35pm Advance Directive Response Recorded Date/ Time Living Will No July 10 11:35pm Power of Cardiology Specialist No July 10, 2022 11:35pm Advance Directive Response Recorded Date/ Time Living Will No May 25 7:07pm Do you have a Healthcare Power of Cardiology Specialist? No May 25, 2024 7:07pm Living Will No June 24 1:39pm Do you have a Healthcare Power of Cardiology Specialist? No June 24, 2024 1:39pm Living Will No July 07 2:59am Do you have a Healthcare Power of Cardiology Specialist? Yes July 07, 2024 2:59am Name of Medical Power of Cardiology Specialist Callie July 07, 2024 2:59am Living Will No September 01, 2024 4:47pm Do you have a Healthcare Power of Cardiology Specialist? No September 01, 2024 4:47pm Advance Directive Response Recorded Date/ Time Living Will No May 25, 7:07pm Do you have a Healthcare Power of Cardiology Specialist? No May 25, 2024 7:07pm Living Will No June 24 1:39pm Do you have a Healthcare Power of Cardiology Specialist? No June 24, 2024 1:39pm Living Will No July 07 2:59am Do you have a Healthcare Power of Cardiology Specialist? Yes July 07, 2024 2:59am Name of Medical Power of Cardiology Specialist Callie July 07, 2024 2:59am Living Will No September 01, 2024 10:11pm Do you have a Healthcare Power of Cardiology Specialist? No September 01, 2024 10:11pm Advance Directive Response Recorded Date/ Time Living Will No June 24 1:39pm Do you have a Healthcare Power of Cardiology Specialist? No June 24, 2024 1:39pm Living Will No July 07 2:59am Do you have a Healthcare Power of Cardiology Specialist? Yes July 07, 2024 2:59am Name of Medical Power of Cardiology Specialist Callie July 07, 2024 2:59am Living Will No September 01, 2024 10:11pm Do you have a Healthcare Power of Cardiology Specialist? No September 01, 2024 10:11pm Living Will No September 21, 2024 3:03pm Do you have a Healthcare Power of Cardiology Specialist? No September 21, 2024 3:03pm Advance Directive Response Recorded Date/ Time Living Will No September 01, 2024 10:11pm Do you have a Healthcare Power of Cardiology Specialist? No September 01, 2024 10:11pm Living Will No September 21, 2024 3:03pm Do you have a Healthcare Power of Cardiology Specialist? No September 21, 2024 3:03pm Chief Complaint and Reason for Visit Chief Complaint 6 M FU LONGSTANDING PERSISTENT ATRIAL FIBRILLATION wound wound Reason for Visit Bronchiectasis Chronic diastolic (congestive) heart failure COPD (chronic obstructive pulmonary disease) Ulcer of left lower extremity with fat layer exposed Venous insufficiency of both lower extremities DM type 2 (diabetes mellitus, type 2) Chief Complaint 6 M FU LONGSTANDING PERSISTENT ATRIAL FIBRILLATION wound wound wound wound Reason for Visit Bronchiectasis Chronic diastolic (congestive) heart failure COPD (chronic obstructive pulmonary disease) Ulcer of left lower extremity with fat layer exposed Venous insufficiency of both lower extremities DM type 2 (diabetes mellitus, type 2) Chief Complaint wound wound wound wound wound wound 6 M FU wound wound wound Reason for Visit Ulcer of left lower extremity with fat layer exposed Venous insufficiency of both lower extremities DM type 2 (diabetes mellitus, type 2) Chronic diastolic (congestive) heart failure Essential (primary) hypertension Hyperlipidemia Longstanding persistent atrial fibrillation Ulcer of left lower extremity with fat layer exposed Venous insufficiency of both lower extremities DM type 2 (diabetes mellitus, type 2) Chief Complaint wound wound wound wound wound wound 6 M FU wound wound wound wound wound wound CHRONIC CYST ON BACK UPPER RT BACK SEBACEOUS CYST EXCISION UPPER RT BACK SEBACEOUS CYST EXCISION Reason for Visit Ulcer of left lower extremity with fat layer exposed Venous insufficiency of both lower extremities DM type 2 (diabetes mellitus, type 2) Chronic diastolic (congestive) heart failure Essential (primary) hypertension Hyperlipidemia Longstanding persistent atrial fibrillation Ulcer of left lower extremity with fat layer exposed Venous insufficiency of both lower extremities DM type 2 (diabetes mellitus, type 2) Infected cyst of skin Open wound of back without complication DM type 2 (diabetes mellitus, type 2) Infected cyst of skin Chief Complaint wound wound wound CHRONIC CYST ON BACK UPPER RT BACK SEBACEOUS CYST EXCISION UPPER RT BACK SEBACEOUS CYST EXCISION F/U Sebaceous Cyst Removal Upper Back 01/05 Wound Check Sebacious Cyst 12 6 M FU 2WK F/U Wound Check Sebacious Cyst 12 Reason for Visit Infected cyst of ski n Open wound of back without complication DM type 2 (diabetes mellitus, type 2) Infected cyst of skin H/O excision of epidermal inclusion cyst H/O excision of epidermal inclusion cyst Bronchiectasis H/O excision of epidermal inclusion cyst Chief Complaint LACERATION Chief Complaint 1 Y FU WOUND Reason for Visit Chronic diastolic (c ongestive) heart failure Essential (primary) hypertension Hyperlipidemia Longstanding persistent atrial fibrillation Delayed wound healing Ulcer of left lower extremity with fat layer exposed Venous insufficiency of both lower extremities Chronic diastolic (congestive) heart failure COPD (chronic obstructive pulmonary disease) DM type 2 (diabetes mellitus, type 2) Essential (primary) hypertension Hyperlipidemia Longstanding persistent atrial fibrillation 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 layer exposed Chief Complaint 1 Y FU WOUND 6 M FU WOUND Reason for Visit Chronic diastolic (c ongestive) heart failure Essential (primary) hypertension Hyperlipidemia Longstanding persistent atrial fibrillation Delayed wound healing Ulcer of left lower extremity with fat layer exposed Venous insufficiency of both lower extremities Chronic diastolic (congestive) heart failure COPD (chronic obstructive pulmonary disease) DM type 2 (diabetes mellitus, type 2) Essential (primary) hypertension Hyperlipidemia Longstanding persistent atrial fibrillation 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 layer exposed Bronchiectasis Chronic diastolic (congestive) heart failure COPD (chronic obstructive pulmonary disease) Delayed wound healing Venous insufficiency of both lower extremities Chronic diastolic (congestive) heart failure COPD (chronic obstructive pulmonary disease) DM type 2 (diabetes mellitus, type 2) Hyperlipidemia Longstanding persistent atrial fibrillation Non-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 layer exposed Chief Complaint WOUND 6 M FU WOUND WOUND Reason for Visit Delayed wound healin g Ulcer of left lower extremity with fat layer exposed Venous insufficiency of both lower extremities Chronic diastolic (congestive) heart failure COPD (chronic obstructive pulmonary disease) DM type 2 (diabetes mellitus, type 2) Essential (primary) hypertension Hyperlipidemia Longstanding persistent atrial fibrillation 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 layer exposed Bronchiectasis Chronic diastolic (congestive) heart failure COPD (chronic obstructive pulmonary disease) Delayed wound healing Venous insufficiency of both lower extremities Chronic diastolic (congestive) heart failure COPD (chronic obstructive pulmonary disease) DM type 2 (diabetes mellitus, type 2) Hyperlipidemia Longstanding persistent atrial fibrillation Non-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 layer exposed Delayed wound healing Venous insufficiency of both lower extremities Chronic diastolic (congestive) heart failure COPD (chronic obstructive pulmonary disease) DM type 2 (diabetes mellitus, type 2) Hyperlipidemia Longstanding persistent atrial fibrillation Non-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 layer exposed Chief Complaint WOUND 6 M FU WOUND WOUND WOUND Reason for Visit Delayed wound healin g Ulcer of left lower extremity with fat layer exposed Venous insufficiency of both lower extremities Chronic diastolic (congestive) heart failure COPD (chronic obstructive pulmonary disease) DM type 2 (diabetes mellitus, type 2) Essential (primary) hypertension Hyperlipidemia Longstanding persistent atrial fibrillation 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 layer exposed Bronchiectasis Chronic diastolic (congestive) heart failure COPD (chronic obstructive pulmonary disease) Delayed wound healing Venous insufficiency of both lower extremities Chronic diastolic (congestive) heart failure COPD (chronic obstructive pulmonary disease) DM type 2 (diabetes mellitus, type 2) Hyperlipidemia Longstanding persistent atrial fibrillation Non-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 layer exposed Delayed wound healing Venous insufficiency of both lower extremities Chronic diastolic (congestive) heart failure COPD (chronic obstructive pulmonary disease) DM type 2 (diabetes mellitus, type 2) Hyperlipidemia Longstanding persistent atrial fibrillation Non-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 layer exposed Delayed wound healing Venous insufficiency of both lower extremities Chronic diastolic (congestive) heart failure COPD (chronic obstructive pulmonary disease) DM type 2 (diabetes mellitus, type 2) Hyperlipidemia Longstanding persistent atrial fibrillation Non-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 layer exposed Chief Complaint 6 M FU WOUND WOUND WOUND WOUND Reason for Visit Bronchiectasis Chronic diastolic (congestive) heart failure COPD (chronic obstructive pulmonary disease) Delayed wound healing Venous insufficiency of both lower extremities Chronic diastolic (congestive) heart failure COPD (chronic obstructive pulmonary disease) DM type 2 (diabetes mellitus, type 2) Hyperlipidemia Longstanding persistent atrial fibrillation Non-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 layer exposed Delayed wound healing Venous insufficiency of both lower extremities Chronic diastolic (congestive) heart failure COPD (chronic obstructive pulmonary disease) DM type 2 (diabetes mellitus, type 2) Hyperlipidemia Longstanding persistent atrial fibrillation Non-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 layer exposed Delayed wound healing Venous insufficiency of both lower extremities Chronic diastolic (congestive) heart failure COPD (chronic obstructive pulmonary disease) DM type 2 (diabetes mellitus, type 2) Hyperlipidemia Longstanding persistent atrial fibrillation Non-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 layer exposed Delayed wound healing Venous insufficiency of both lower extremities Chronic diastolic (congestive) heart failure COPD (chronic obstructive pulmonary disease) DM type 2 (diabetes mellitus, type 2) Hyperlipidemia Longstanding persistent atrial fibrillation Non-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 layer exposed Chief Complaint WOUND WOUND WOUND 7 m fu WOUND Reason for Visit Delayed wound healin g Venous insufficiency of both lower extremities Chronic diastolic (congestive) heart failure COPD (chronic obstructive pulmonary disease) DM type 2 (diabetes mellitus, type 2) Hyperlipidemia Longstanding persistent atrial fibrillation Non-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 layer exposed Delayed wound healing Venous insufficiency of both lower extremities Chronic diastolic (congestive) heart failure COPD (chronic obstructive pulmonary disease) DM type 2 (diabetes mellitus, type 2) Hyperlipidemia Longstanding persistent atrial fibrillation Non-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 layer exposed Delayed wound healing Venous insufficiency of both lower extremities Chronic diastolic (congestive) heart failure COPD (chronic obstructive pulmonary disease) DM type 2 (diabetes mellitus, type 2) Hyperlipidemia Longstanding persistent atrial fibrillation Non-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 layer exposed Chronic diastolic (congestive) heart failure Essential (primary) hypertension Hyperlipidemia Longstanding persistent atrial fibrillation Delayed wound healing Venous insufficiency of both lower extremities Chronic diastolic (congestive) heart failure COPD (chronic obstructive pulmonary disease) DM type 2 (diabetes mellitus, type 2) Hyperlipidemia Non-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 layer exposed Chief Complaint WOUND WOUND 7 m fu WOUND WOUND Reason for Visit Delayed wound healin g Venous insufficiency of both lower extremities Chronic diastolic (congestive) heart failure COPD (chronic obstructive pulmonary disease) DM type 2 (diabetes mellitus, type 2) Hyperlipidemia Longstanding persistent atrial fibrillation Non-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 layer exposed Delayed wound healing Venous insufficiency of both lower extremities Chronic diastolic (congestive) heart failure COPD (chronic obstructive pulmonary disease) DM type 2 (diabetes mellitus, type 2) Hyperlipidemia Longstanding persistent atrial fibrillation Non-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 layer exposed Chronic diastolic (congestive) heart failure Essential (primary) hypertension Hyperlipidemia Longstanding persistent atrial fibrillation Delayed wound healing Venous insufficiency of both lower extremities Chronic diastolic (congestive) heart failure COPD (chronic obstructive pulmonary disease) DM type 2 (diabetes mellitus, type 2) Hyperlipidemia Non-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 layer exposed Delayed wound healing Venous insufficiency of both lower extremities Chronic diastolic (congestive) heart failure COPD (chronic obstructive pulmonary disease) DM type 2 (diabetes mellitus, type 2) Essential (primary) hypertension Hyperlipidemia Non-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 layer exposed Chief Complaint WOUND 7 m fu WOUND WOUND WOUND Reason for Visit Delayed wound healin g Venous insufficiency of both lower extremities Chronic diastolic (congestive) heart failure COPD (chronic obstructive pulmonary disease) DM type 2 (diabetes mellitus, type 2) Hyperlipidemia Longstanding persistent atrial fibrillation Non-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 layer exposed Chronic diastolic (congestive) heart failure Essential (primary) hypertension Hyperlipidemia Longstanding persistent atrial fibrillation Delayed wound healing Venous insufficiency of both lower extremities Chronic diastolic (congestive) heart failure COPD (chronic obstructive pulmonary disease) DM type 2 (diabetes mellitus, type 2) Hyperlipidemia Non-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 layer exposed Delayed wound healing Venous insufficiency of both lower extremities Chronic diastolic (congestive) heart failure COPD (chronic obstructive pulmonary disease) DM type 2 (diabetes mellitus, type 2) Essential (primary) hypertension Hyperlipidemia Non-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 layer exposed Delayed wound healing Venous insufficiency of both lower extremities Chronic diastolic (congestive) heart failure COPD (chronic obstructive pulmonary disease) DM type 2 (diabetes mellitus, type 2) Hyperlipidemia Longstanding persistent atrial fibrillation Non-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 Chief Complaint Admit Date fall May 25, 2024 6:00pm SEPSIS June 24, 2024 1 1:02am SEPSIS June 24, 2024 1 :34pm SEPSIS June 25, 2024 7 :10am SEPSIS June 26, 2024 7 :03am SEPSIS June 26, 2024 1 :50pm SEPSIS June 27, 2024 7 :39am abd pain July 07, 2024 1 :52am LAB WORK July 17, 2024 6:21pm Moderate pleural effusion August 03 8:15am S/P [facility] 06/27September 01, 2024 7:52 am CHEST PAIN, HYPOXIA, PNA September 01, 2024 9:02pm Reason for Visit Admit Date Ventricular tachycardia June 24 11:02am Acute hypoxic respiratory failure Betouar y 2024 11:02am Aspiration pneumonia June 24, 2024 11:02am Cardiac arrest June 24, 2024 1 1:02am Elevated troponin June 24, 2024 1 1:02am Hypotension June 24, 2024 1 1:02am Longstanding persistent atrial fibrillat ion June 24, 2024 11:02am NSTEMI, initial episode of care June 24, 2024 11:02am Sepsis June 24, 2024 1 1:02am Syncope June 24, 2024 1 1:02am Anemia June 24, 2024 1 1:02am Bronchiectasis August 03, 2024 8:15 am Chronic diastolic (congestive) heart eliana lure August 03, 2024 8:15am COPD (chronic obstructive pulmonary dise ase) August 03, 2024 8:15am Atrial fibrillation September 01, 2024 7:52 am History of coronary artery stent placeme nt September 01, 2024 7:52am Single implantable cardiover ter-defibrillator (ICD) in situ September 01, 2024 7:52am Ventricular tachycardia September 01, 2024 7:52am Essential (primary) hypertension September [id number] 7:52am Hyperlipidemia September 01, 2024 7:52 am Chest pain September 01, 2024 9:02 pm Pneumonia September 01, 2024 9:02 pm DM type 2 (diabetes mellitus, type 2) Ap 2024 9:02pm Chief Complaint Admit Date fall May 25, 2024 6:00pm SEPSIS June 24, 2024 1 1:02am SEPSIS June 24, 2024 1 :34pm SEPSIS June 25, 2024 7 :10am SEPSIS June 26, 2024 7 :03am SEPSIS June 26, 2024 1 :50pm SEPSIS June 27, 2024 7 :39am abd pain July 07, 2024 1 :52am LAB WORK July 17, 2024 6:21pm Moderate pleural effusion August 03 8:15am S/P [facility] 06/27September 01, 2024 7:52 am CHEST PAIN, HYPOXIA, PNA September 01, 2024 9:02pm CHEST PAIN, HYPOXIA, PNA September 02, 2024 9:28am CHEST PAIN, HYPOXIA, PNA September 03, 2024 10:48am Reason for Visit Admit Date Ventricular tachycardia June 24 11:02am Acute hypoxic respiratory failure Januar y 2024 11:02am Aspiration pneumonia June 24, 2024 11:02am Cardiac arrest June 24, 2024 1 1:02am Elevated troponin June 24, 2024 1 1:02am Hypotension June 24, 2024 1 1:02am Longstanding persistent atrial fibrillat ion June 24, 2024 11:02am NSTEMI, initial episode of care June 24, 2024 11:02am Sepsis June 24, 2024 1 1:02am Syncope June 24, 2024 1 1:02am Anemia June 24, 2024 1 1:02am Bronchiectasis August 03, 2024 8:15 am Chronic diastolic (congestive) heart eliana lure August 03, 2024 8:15am COPD (chronic obstructive pulmonary dise ase) August 03, 2024 8:15am Atrial fibrillation September 01, 2024 7:52 am History of coronary artery stent placeme nt September 01, 2024 7:52am Single implantable cardiover ter-defibrillator (ICD) in situ September 01, 2024 7:52am Ventricular tachycardia September 01, 2024 7:52am Essential (primary) hypertension September [id number] 7:52am Hyperlipidemia September 01, 2024 7:52 am DM type 2 (diabetes mellitus, type 2) Ap 2024 9:02pm Chest pain September 01, 2024 9:02 pm Pneumonia September 01, 2024 9:02 pm Chief Complaint Admit Date SEPSIS June 24, 2024 1 1:02am SEPSIS June 24, 2024 1 :34pm SEPSIS June 25, 2024 7 :10am SEPSIS June 26, 2024 7 :03am SEPSIS June 26, 2024 1 :50pm SEPSIS June 27, 2024 7 :39am abd pain July 07, 2024 1 :52am LAB WORK July 17, 2024 6:21pm Moderate pleural effusion August 03 8:15am S/P [facility] 06/27September 01, 2024 7:52 am CHEST PAIN, HYPOXIA, PNA September 01, 2024 9:02pm CHEST PAIN, HYPOXIA, PNA September 02, 2024 9:28am CHEST PAIN, HYPOXIA, PNA September 03, 2024 10:48am abd pain, rib pain September 21, 2024 2:3 2pm RUQ PAIN October 14, 2024 8:47a m Chief Complaint Admit Date LAB WORK July 17, 2024 6:21pm Moderate pleural effusion August 03 8:15am S/P [facility] 06/27September 01, 2024 7:52 am CHEST PAIN, HYPOXIA, PNA September 01, 2024 9:02pm CHEST PAIN, HYPOXIA, PNA September 02, 2024 9:28am CHEST PAIN, HYPOXIA, PNA September 03, 2024 10:48am abd pain, rib pain September 21, 2024 2:3 2pm RUQ PAIN October 14, 2024 8:47a m 3 M FU November 10, 2024 8:59 am Reason for Visit Admit Date Bronchiectasis August 03, 2024 8:15 am Chronic diastolic (congestive) heart eliana lure August 03, 2024 8:15am COPD (chronic obstructive pulmonary dise ase) August 03, 2024 8:15am Atrial fibrillation September 01, 2024 7:52 am History of coronary artery stent placeme nt September 01, 2024 7:52am Single implantable cardioverter-defibril lator (ICD) in situ September 01, 2024 7:52am Ventricular tachycardia September 01, 2024 7:52am Essential (primary) hypertension September [id number] 7:52am Hyperlipidemia September 01, 2024 7:52 am DM type 2 (diabetes mellitus, type 2) Ap 2024 9:02pm Chest pain September 01, 2024 9:02 pm Pneumonia September 01, 2024 9:02 pm Additional Source Comments (unrecognized sect ion and content) No Status Records FoundNo Status Records FoundNo Status Records FoundNo Status Records Found INFORMATION SOURCE (unrecogn ized section and content) DATE CREATED AUTHOR 06/11/2018 [facility] ([place]) DATE CREATED AUTHOR AUTHOR'S ORGANIZ ATION 02/14/2021 [facility] DATE CREATED AUTHOR AUTHOR'S ORGANIZ ATION 07/07/2024 [facility] DATE CREATED AUTHOR AUTHOR'S ORGANIZ ATION 11/11/2024 [facility] Goals (unrecognized section and content) Goals may be documented in a n alternate sectionGoals may be documented in an alternate sectionGoals may be documented in an alternate sectionGoals may be documented in an alternate sectionGoals may be documented in an alternate sectionGoals may be documented in an alternate sectionGoals may be documented in an alternate sectionGoals may be documented in an alternate sectionGoals may be documented in an alternate sectionGoals may be documented in an alternate sectionGoals may be documented in an alternate sectionGoals may be documented in an alternate sectionGoals may be documented in an alternate sectionGoals may be documented in an alternate section No data available for this section Care Teams (unrecognized sec tion and content) Team Status: Active Member Role Status Dates Dr. Jessi Olguin MD Primary Care Provider Active Team Status: Active Member Role Status Dates Dr. Jessi Olguin MD Primary Care Provider Active Start: July 17, 2024 Ezequiel FERRER Attending Provider Active Start : July 17, 2024 Team Status: Inactive Member Role Status Dates Dr. Jessi Olguin MD Primary Care Provider Active Start: August 03, 2024 End: August 03, 2024 Dr. Jessi Olguin MD Referring Provider Active St art: August 03, 2024 End: August 03, 2024 Mey Rice NP, PREDATORY ANIMAL EXTERMINATOR-C Attending Provider Active Start: August 03, 2024 End: August 03, 2024 Team Status: Inactive Member Role Status Dates Dr. Jessi Olguin MD Primary Care Provider Active Start: September 01, 2024 End: September 01, 2024 Dr. Jessi Olguin MD Referring Provider Active St art: September 01, 2024 End: September 01, 2024 Sanaz Angel PA, PA Attending Provider Active Start: September 01, 2024 End: September 01, 2024 Team Status: Inactive Member Role Status Dates Dr. Jessi Olguin MD Primary Care Provider Active Start: September 01, 2024 End: September 03, 2024 Dr. Jessi Calloway DO Emergency Provider Active Start: September 01, 2024 End: September 03, 2024 Dr. Shonda Gaston MD Admit Provider Active St art: September 01, 2024 End: September 03, 2024 Dr. Shonda Gaston MD Other Provider Active St art: September 01, 2024 End: September 03, 2024 Dr. Wood Braxton MD Attending Provider Active Start: September 01, 2024 End: September 03, 2024 Team Status: Active Member Role Status Dates Dr. Jessi Olguin MD Primary Care Provider Active Start: September 02, 2024 Dr. Jessi Calloway DO Emergency Provider Active Start: September 02, 2024 Dr. Shonda Gaston MD Admit Provider Active St art: September 02, 2024 Dr. Shonda Gaston MD Other Provider Active St art: September 02, 2024 Dr. Wood Braxton MD Attending Provider Active Start: September 02, 2024 Dr. Wood Braxton MD Other Provider Active Star t: September 02, 2024 Team Status: Active Member Role Status Dates Dr. Jessi Olguin MD Primary Care Provider Active Start: September 03, 2024 Dr. Jessi Calloway DO Emergency Provider Active Start: September 03, 2024 Dr. Shonda Gaston MD Admit Provider Active St art: September 03, 2024 Dr. Shonda Gaston MD Other Provider Active St art: September 03, 2024 Dr. Wood Braxton MD Attending Provider Active Start: September 03, 2024 Dr. Wood Braxton MD Other Provider Active Star t: September 03, 2024 Team Status: Inactive Member Role Status Dates Dr. Jessi Olguin MD Primary Care Provider Active Start: September 04, 2024 End: September 04, 2024 Dr. Jessi Olguin MD Attending Provider Active St art: September 04, 2024 End: September 04, 2024 Dr. Jessi Olguin MD Referring Provider Active St art: September 04, 2024 End: September 04, 2024 Team Status: Inactive Member Role Status Dates Dr. Jessi Olguin MD Primary Care Provider Active Start: September 21, 2024 End: September 21, 2024 Dr. Gary Ashby MD Attending Provider Active Sta rt: September 21, 2024 End: September 21, 2024 Dr. Gary Ashby MD Referring Provider Active Sta rt: September 21, 2024 End: September 21, 2024 Dr. Gary Ashby MD Emergency Provider Active Sta rt: September 21, 2024 End: September 21, 2024 Team Status: Inactive Member Role Status Dates Dr. Jessi Olguin MD Primary Care Provider Active Start: October 14, 2024 End: October 14, 2024 Dr. Jessi Olguin MD Attending Provider Active St art: October 14, 2024 End: October 14, 2024 Dr. Jessi Olguin MD Referring Provider Active St art: October 14, 2024 End: October 14, 2024 Team Status: Inactive Member Role Status Dates Dr. Jessi Olguin MD Primary Care Provider Active Start: November 10, 2024 End: November 10, 2024 Dr. Jessi Olguin MD Referring Provider Active St art: November 10, 2024 End: November 10, 2024 Michelle Graham , PREDATORY ANIMAL EXTERMINATOR-C Attending Provider Active Start: November 10, 2024 End: November 10, 2024 Team Status: Active Member Role Status Dates Dr. Jessi Olguin MD Family Provider Active Dr. Jessi Olguin MD Primary Care Provider Active Team Status: Inactive Member Role Status Dates Dr. Jessi Olguin MD Primary Care Provide r, Attending Provider, Referring Provider Active Team Status: Inactive Member Role Status Dates Dr. Jessi Olguin MD Primary Care Provider Active Dr. Marco Nolen DO Attending Provider, Emergency Provider Active Team Status: Inactive Member Role Status Dates Dr. Jessi Olguin MD Primary Care Provider, Referring P rovider Active Dr. Judson Isabel MD Attending Provider Active Team Status: Inactive Member Role Status Dates Dr. Jessi Olguin MD Primary Care Provider, Referring P rovider Active Dr. Alejandro Talbot DPM Attending Provider Active Team Status: Inactive Member Role Status Dates Dr. Jessi Olguin MD Primary Care Provider, Referring P rovider Active Mey Rice PREDATORY ANIMAL EXTERMINATOR, PREDATORY ANIMAL EXTERMINATOR-C Attending Provider Active Team Status: Inactive Member Role Status Dates Dr. Jessi Olguin MD Primary Care Provider, Attending P rovider Active Team Status: Active Member Role Status Dates Dr. Jessi Olguin MD Primary Care Provide r, Attending Provider, Referring Provider Active Team Status: Active Member Role Status Dates Dr. Jessi Olguin MD Primary Care Provider, Referring P rovider Active Dr. Alejandro aTlbot DPM Attending Provider Active Team Status: Inactive Member Role Status Dates Dr. Jessi Olguin MD Primary Care Provider, Referring P rovider Active Sedrick Irvin PREDATORY ANIMAL EXTERMINATOR, PREDATORY ANIMAL EXTERMINATOR-C Active Danni Davis PREDATORY ANIMAL EXTERMINATOR, PREDATORY ANIMAL EXTERMINATOR-C Attending Provider Active Team Status: Inactive Member Role Status Dates Dr. Jessi Olguin MD Primary Care Provider Active Start: May 25, 2024 End: May 25, 2024 Dr. Jose Bliss DO Attending Provider Activ e Start: May 25, 2024 End: May 25, 2024 Dr. Jose Bliss DO Emergency Provider Activ e Start: May 25, 2024 End: May 25, 2024 Team Status: Inactive Member Role Status Dates Dr. Jessi Olguin MD Primary Care Provider Active Start: June 24, 2024 End: June 27, 2024 Dr. Kaylin Jama DO Emergency Provider Active S tart: June 24, 2024 End: June 27, 2024 Dr. Jessi Kaur DO Admit Provider Active Star t: June 24, 2024 End: June 27, 2024 Dr. Jessi Kaur DO Attending Provider Active Start: June 24, 2024 End: June 27, 2024 Dr. Gracia Chavez MD Other Provider Active Start: June 24, 2024 End: June 27, 2024 Team Status: Active Member Role Status Dates Dr. Jessi Olguin MD Primary Care Provider Active Start: June 24, 2024 Dr. Kaylin Jama DO Emergency Provider Active S tart: June 24, 2024 Dr. Jessi Kaur DO Admit Provider Active Star t: June 24, 2024 Dr. Jessi Kaur DO Attending Provider Active Start: June 24, 2024 Dr. Jessi Kaur DO Other Provider Active Star t: June 24, 2024 Team Status: Active Member Role Status Dates Dr. Jessi Olguin MD Primary Care Provider Active Start: June 25, 2024 Dr. Kaylin Jama DO Emergency Provider Active S tart: June 25, 2024 Dr. Jessi Kaur DO Admit Provider Active Star t: June 25, 2024 Dr. Jessi Kaur DO Attending Provider Active Start: June 25, 2024 Dr. Jessi Kaur DO Other Provider Active Star t: June 25, 2024 Dr. Gracia Chavez MD Other Provider Active Start: June 25, 2024 Team Status: Active Member Role Status Dates Dr. Jessi Olguin MD Primary Care Provider Active Start: June 25, 2024 Dr. Gracia Chavez MD Attending Provider Activ e Start: June 25, 2024 Team Status: Active Member Role Status Dates Dr. Jessi Olguin MD Primary Care Provider Active Start: June 26, 2024 Dr. Kaylin Jama DO Emergency Provider Active S tart: June 26, 2024 Dr. Jessi Kaur DO Admit Provider Active Star t: June 26, 2024 Dr. Jessi Kaur DO Attending Provider Active Start: June 26, 2024 Dr. Jessi Kaur DO Other Provider Active Star t: June 26, 2024 Dr. Gracia Chavez MD Other Provider Active Start: June 26, 2024 Team Status: Active Member Role Status Dates Dr. Jessi Olguin MD Primary Care Provider Active Start: June 26, 2024 Dr. Kaylin Jama DO Emergency Provider Active S tart: June 26, 2024 Dr. Jessi Kaur DO Admit Provider Active Star t: June 26, 2024 Dr. Jessi Kaur DO Other Provider Active Star t: June 26, 2024 Dr. Gracia Chavez MD Attending Provider Activ e Start: June 26, 2024 Dr. Gracia Chavez MD Other Provider Active Start: June 26, 2024 Team Status: Active Member Role Status Dates Dr. Jessi Olguin MD Primary Care Provider Active Start: June 27, 2024 Dr. Kaylin Jama DO Emergency Provider Active S tart: June 27, 2024 Dr. Jessi Kaur DO Admit Provider Active Star t: June 27, 2024 Dr. Jessi Kaur DO Attending Provider Active Start: June 27, 2024 Dr. Jessi Kaur DO Other Provider Active Star t: June 27, 2024 Dr. Gracia Chavez MD Other Provider Active Start: June 27, 2024 Team Status: Active Member Role Status Dates Dr. Jessi Olguin MD Primary Care Provider Active Start: June 27, 2024 Dr. Gracia Chavez MD Attending Provider Activ e Start: June 27, 2024 Team Status: Inactive Member Role Status Dates Dr. Jessi Olguin MD Primary Care Provider Active Start: July 07, 2024 End: July 07, 2024 Dr. Dhiraj Carlton DO Attending Provider Active Start: July 07, 2024 End: July 07, 2024 Dr. Dhiraj Carlton DO Emergency Provider Active Start: July 07, 2024 End: July 07, 2024 Team Status: Inactive Member Role Status Dates Dr. Jessi Olguin MD Primary Care Provider Active Start: July 10, 2024 End: July 10, 2024 Danni Davis NP, PREDATORY ANIMAL EXTERMINATOR-C Attending Provider Active Start: July 10, 2024 End: July 10, 2024 Danni Davis PREDATORY ANIMAL EXTERMINATOR, PREDATORY ANIMAL EXTERMINATOR-C Referring Provider Active Start: July 10, 2024 End: July 10, 2024 Team Status: Active Member Role Status Dates Dr. Jessi Olguin MD Primary Care Provider Active Start: September 01, 2024 Dr. Jessi Calloway DO Emergency Provider Active Start: September 01, 2024 Dr. Shonda Gaston MD Admit Provider Active St art: September 01, 2024 Dr. Shonda Gaston MD Attending Provider Active Start: September 01, 2024 Dr. Shonda Gaston MD Other Provider Active St art: September 01, 2024 FOR RECORDS PERTAINING TO PATIENTS WHO ARE OR HAVE BEEN ENROLLED IN A CHEMICAL DEPENDENCY/SUBSTANCEABUSE PROGRAM, SOME INFORMATION MAY BE OMITTED. This clinical summary was aggregated from multiple sources. Caution should be exercised in using it in the provision of clinical care. This summary normalizes information from multiple sources, and as a consequence, information in this document may materially change the coding, format and clinical context of patient data. In addition, data may be omitted in some cases. CLINICAL DECISIONS SHOULD BE BASED ON THE PRIMARY CLINICAL RECORDS. [employer] provides no warranty or guarantee of the accuracy or completeness of information in this document.
[2024-11-14 11:36] LABS: Differential Indicated SCAN CRITERIA MET
[2024-11-14 11:37] LABS: Platelet Estimate ADEQUATE (ADEQ)
[2024-11-14 11:38] LABS: Anion Gap 14 (5-15); BUN 25 mg/dL (4-19); BUN/Creat Ratio 22.6 RATIO (10-20); Calcium,Total 9.3 mg/dL (7.6-11.0); Chloride 100 mmol/L (98-108); Creatinine, Serum 1.09 mg/dL (0.70-1.20); EST Glomerular Filtration Rate 70 (>60); Estimated Creatinine Clearance 74.75 ml/min (50-250); Glucose 230 mg/dL (70-99); Potassium 3.3 mmol/L (3.3-5.1); Sodium Level 137 mmol/L (133-145); Troponin T High Sensitivity 28 ng/L (<=22)
--- NOTE | 2024-11-14 12:31 | PCM.HP.STD ---
HPI - General General Date of Admission: 11/14/24 Date of Service: 11/14/24 Chief Complaint: chest pain HPI Narrative ARMIN CHAND, is a 74 M with a PMh as outlined who presents via the ED on 11/14/2024 with a complaint of chest pain. HE has an ICD in situ and says it fired about 10 times in the last hour prior to admission. The pacemaker defibrillator was inserted in [facility] in June 2024. He went to use the bathroom today and said he stared getting shocks from the defibrillator, for a total of about 10 shocks. He admitted to some lightheadedness prior to being shocked. He denied any dizziness, nausea, vomiting or shortness of breath or any other symptoms. Review of systems is otherwise negative. His was by his bedside at time of review. VItals in the ED were BP of 122/65, AK of 98, RR of 19 and oxygen sats of 99% on room air. CBC showed hb of 11.9, wbc of 7.8 and platelets estimate not given in CBC due to platelets clumping. CXR showed no acute cardiopulmonary process. EKG showed paced rhytm, though the EMS said he had some ventricular tachycardia per their rhythm strip. Family is not clear if he is on any cardiac antiarrhythmics. He has been admitted to manage for chest pain in the setting of ICD firing and probable ventricular tachycardia. [facility] Medical History Coronary artery disease Kidney stones Atrial fibrillation Wears dentures Blind Depression Insulin dependent diabetes mellitus Ambulates with cane Anemia High cholesterol Injury of head and neck Former smoker History of Holter monitoring History of echocardiogram Cardiology follow-up encounter History of atrial fibrillation Open wound of back without complication Venous insufficiency of both lower extremities Ulcer of left lower extremity with fat layer exposed Longstanding persistent atrial fibrillation Left ventricular diastolic dysfunction Chronic diastolic (congestive) heart failure Right bundle branch block (RBBB) Essential (primary) hypertension COPD (chronic obstructive pulmonary disease) Anxiety and depression Obesity (BMI 30-39.9) Hyperlipidemia Hypothyroidism DM type 2 (diabetes mellitus, type 2) Hx of transfusion of whole blood Home Medications ?Medication ?Instructions ?Recorded ?Last Taken ?Type metformin 500 mg tablet,extended 1,000 mg PO DAILY 03/02/20 11/14/24 History release 24 hr PEP device #1 ea 11/14/21 Unknown Rx ferrous sulfate 325 mg (65 mg 325 mg PO DAILY supplement 01/02/22 11/14/24 History iron) tablet acetaminophen 500 mg tablet 1,000 mg PO Q8H PRN pain 08/03/24 09/20/24 History buspirone 7.5 mg tablet 7.5 mg PO BID 08/03/24 11/14/24 History hydroxyzine pamoate 50 mg capsule 50 mg PO BID 08/03/24 11/14/24 History insulin lispro 100 unit/mL 12 unit subcut BIDAC 08/03/24 11/14/24 History subcutaneous pen (Humalog KwikPen (U-100) Insulin) lisinopril 5 mg tablet 5 mg PO DAILY bp 08/03/24 09/01/24 History Held on 09/03/24. Instructions: low bp atorvastatin 40 mg tablet 40 mg PO QHS 09/01/24 11/13/24 History clopidogrel 75 mg tablet 75 mg PO DAILY 09/01/24 11/14/24 History levothyroxine 175 mcg tablet 175 mcg PO DAILY 09/01/24 09/20/24 History metoprolol succinate 25 mg 25 mg PO DAILY 09/01/24 11/14/24 History tablet,extended release 24 hr rivaroxaban 20 mg tablet 20 mg PO DAILY 09/01/24 11/14/24 History venlafaxine 75 mg capsule,extended 75 mg PO DAILY 09/01/24 11/14/24 History release 24 hr furosemide 40 mg tablet (Lasix) 40 mg PO DAILY #60 tabs 09/03/24 11/14/24 Rx acetylcysteine 600 mg capsule 600 mg PO BID 09/21/24 11/14/24 History ascorbic acid (vitamin C) 500 mg 500 mg PO DAILY 09/21/24 11/14/24 History tablet cholecalciferol (vitamin D3) 25 25 mcg PO DAILY 09/21/24 11/14/24 History mcg (1,000 unit) tablet (Vitamin D3) insulin glargine 100 unit/mL (3 10 unit subcut DAILY 09/21/24 11/14/24 History mL) subcutaneous pen (Lantus Solostar U-100 Insulin) blood sugar diagnostic (True #10 ea 11/10/24 Unknown History Metrix Glucose Test Strip) Allergy/AdvReac Type Severity Reaction Status Date / Time shellfish derived Allergy Hives Verified 11/10/24 09:03 Family History Mother Cancer Sister Heart disease Father , age 97, no medical history per family reported, not taking any medications. No problems noted. Surgical History ICD (implantable cardioverter-defibrillator) in place History of coronary artery stent placement (06/25/24) Hx of excision of dermoid cyst (~01/2022) Hx of cataract surgery History of inguinal hernia repair H/O hernia repair Social History household members: spouse Smoking Status: Former smoker quit date: 06/03/09 second hand exposure: No alcohol intake: never substance use type: does not use ROS Constitutional Constitutional: Denies anorexia, chills, fatigue, fever(s), malaise or weakness Eyes Eyes: Reports other Details: patient legally blind ENT HEENT: Denies dysphagia or headache(s) Cardiovascular Cardiovascular: Reports chest pain and lightheadedness; Denies dyspnea on exertion, edema, orthopnea, palpitations, paroxysmal nocturnal dyspnea, rapid heart rate or syncope Respiratory/Chest Respiratory/Chest: Denies cough, dyspnea, shortness of breath at rest or shortness of breath with exertion Gastrointestinal Gastrointestinal: Denies abdominal pain, constipation, nausea or vomiting Genitourinary Genitourinary: Denies dysuria Neurologic Neurologic: Denies confusion, dizziness, focal weakness, headache(s), numbness, seizure-like activity, seizures or syncope Psychiatric Psychiatric: Denies anxiety or depression Endocrine Endocrinology: Denies change in body appearance Vital Signs Vital Signs Vital Signs: 11/14/24 10:30 11/14/24 10:37 11/14/24 11:00 Temperature 96.7 F L Temperature Source Axillary Pulse Rate 106 H 76 Respiratory Rate 14 19 H Blood Pressure 123/78 H 109/69 Blood Pressure Mean 93 82 Pulse Ox 97 97 98 Oxygen Delivery Method Room Air Room Air 11/14/24 11:30 11/14/24 12:00 Temperature Temperature Source Pulse Rate 67 98 Respiratory Rate 19 H 19 H Blood Pressure 98/77 122/65 H Blood Pressure Mean 84 84 Pulse Ox 95 99 Oxygen Delivery Method Room Air Room Air Weight Weight: 225 lb 12.054 oz Body Mass Index (BMI) 28.2 Physical Exam Const alert, oriented x3 and no apparent distress General Appearance: cooperative HEENT normocephalic, hearing grossly normal bilaterally and moist oral mucous membranes Eyes Eyes Narrative: patient legally blind Neck supple and no JVD Resp normal respiratory effort, no use of accessory muscles and clear to auscultation bilaterally Cardio regular rate, regular rhythm, S1 normal heart sound, S2 normal heart sound and no murmurs GI normal to inspection, nondistended, normoactive bowel sounds, soft to palpation, non-tender and non-distended Extremity normal to inspection and full ROM Neuro oriented x3, moves all extremities and no focal motor deficits Sensorium / Orientation: awake and alert Motor Exam: strength 5/5 throughout Psych affect normal Results Lab / Micro Data 11/14/24 10:33 11/14/24 10:33 Labs: Laboratory Results - last 24 hr 11/14/24 10:33: WBC 7.8, RBC 4.07 L, Hgb 11.9 L, Hct 36.7 L, MCV 90.2, MCH 29.2, MCHC 32.4, RDW Std Deviation 45.3 H, RDW Coeff of Marifer 13.8, Plt Count , Immature Gran % (Auto) 0.400, Neut % (Auto) 43.6 L, Lymph % (Auto) 43.8 H, Bailey % (Auto) 10.3 H, Eos % (Auto) 1.5, Baso % (Auto) 0.4, Absolute Neuts (auto) 3.4, Absolute Lymphs (auto) 3.42, Nucleated RBC % 0, Platelet Estimate ADEQUATE, Sodium 137, Potassium 3.3, Chloride 100, Carbon Dioxide 22.0, Anion Gap 14, BUN 25 H, Creatinine 1.09, Estim Creat Clear Calc 74.75, Est GFR (MDRD) Non-Af 70, BUN/Creatinine Ratio 22.6 H, Glucose 230 H, Calcium 9.3, Troponin T High Sens 28 H D Rhythm Strip Rhythm Strip: Paced Rate: 96 Ectopy: None Imaging Radiology Impression Chest X-Ray 11/14/24 10:37 IMPRESSION: No acute process. Bochdalek's hernia. Reading Location: [facility] Assessment & Plan Assessment/Plan (1) V tach: PLAN: Plan #Chest pain in the setting of ICD firing Admit to PCU. Patient has an ICD in situ and states today he went to use the bathroom and got lightheaded when standing up. His ICD started going off and firing He therefore called the EMS and came into the ED. EMS noticed the patient was in intermittent ventricular tachycardia Patient has his ICD inserted in June 2024. He does not does not seem to be on any antiarrhythmics. EKG showed a paced rhythm. Potassium was 3.3 and magnesium was not checked. Will check magnesium and replace potassium for minimal level of 4. Order 2D echo. Consult cardiology. Patient started on amiodarone drip. #Type 2 diabetes mellitus: On Lantus 10 units daily. Sliding scale. Checks ACHS. #Atrial fibrillation: Status post pacemaker. On Xarelto and metoprolol #History of CAD: Status post stents. #Benign essential hypertension: On metoprolol #Heart failure preserved ejection fraction: Not in exacerbation. On p.o. Lasix. #Hyperlipidemia: On statin #Hypothyroidism: On Synthroid. Check TSH #Depression: On venlafaxine DVT prophylaxis: Already on Xarelto CODE STATUS: Full code Patient counseled extensively about different types of CODE STATUS including full code, DNR CCA and DNR CCA. Patient elects to be full code. Total [id number] time 17 minutes. Charges/Coding Visit Charges Inpatient E&M: 71228 Init Hosp L3 Procedures Hospitalists Procedures: 75606 Advncd Care Plan 30 Min
[2024-11-14 13:04] LABS: Troponin T High Sens 2 HR 77 ng/L (<=22)
[2024-11-14] MEDS: Amiodarone 150 MG in Dextrose 5%-Water (100mL Bag) 100 ML 600 MG IV BOLUS (13:21)
--- OUTSIDE RECORDS SUMMARY | 2024-11-14 13:30 | XMS RPT_ITS | CCD ---
Author Organization [facility] CliniSyid Care Team Providers Care Water Softener Servicer Name Role Phone SAGAR GARCIA Unavailable Unavailable SAGAR GARCIA Unavailable Unavailable MARISOL TUCKER Unavailable Unavailable Dr. Jessi Olguin Primary Care Provider 1([facility])[phone] Dr. Jessi Olguin Referring Provider 1([facility])[phone] Dr. Jeremy Ovalle Attending Provider 1([facility])[phone] Kyleigh Andrade Attending Provider 1([facility])2 Dr. Kyleigh Andrade Other Provider 1([facility])- [phone] Dr. Jessi Olguin Primary Care Provider 1([facility])[phone] Dr. Jessi Olguin Referring Provider 1([facility])[phone] Albaro TIMBER POISONER, KARTHIK-José Luis Padilla Attending Provider 1([facility])[phone] Dr. Alejandro Guerrero Attending Provider 1([facility])[phone] Dr. Alejandro Guerrero Referring Provider 1([facility])[phone] Dr. Alejandro Guerrero Other Provider 1([facility])[phone] Jessi Olguin Primary Care Provider 1([facility])[phone] Dr. Kyleigh Andrade Attending Provider 1([facility])2 Dr. Kyleigh Andrade Other Provider 1([facility])[phone] Dr. Jessi Olguin Referring Provider 1([facility])[phone] Dwayne TIMBER POISONER, TIMBER POISONER-C Mey Attending Provider [phone] Dr. Jessi Olguin Primary Care Provider [phone] Jessi Olguin Referring Provider 1([facility])[phone] Judson Isabel Attending Provider 1([facility])[phone] Dwayne TIMBER POISONER, TIMBER POISONER-C Mey Attending Provider Dr. Jessi Olguin Primary Care Provider [phone] Jessi Olguin Referring Provider wDayne TIMBER POISONER, TIMBER POISONER-C Mey Attending Provider Dr. Jessi Olguin Primary Care Provider [phone] Jessi Olguin Referring Provider Ryan ANGELES, TIMBER POISONER-C Danni Attending Provider Dr. Jessi Olguin Primary Care Provider [phone] Jessi Olguin Referring Provider Ryan ANGELES, TIMBER POISONER-C Danni Attending Provider CATHERINE BLAS, DR SEDRICK Ordonez Attending Unavailable ISRAEL BLAS, ELBA Ness Consulting Unavailable CATHERINE BLAS, DR SEDRICK Ordonez Admitting Unavailable ALEXANDER BLAS, DR SEAN Ness Consulting Unavailable TRUDI BLAS, PITER Consulting Unavailable JUDY BLAS, DHIRAJ Costello Consulting Unavailable Sharif BLAS, [...] Provider Ryan ANGELES-Danni Ordonez Attending Provider Ryan TIMBER POISONER-CDanni Referring Provider Ezequiel Zimmer Attending Provider Unavailable Sharif BLAS, Dr. Castorena Referring Provider [phone] Dwayne ANGELES-CMey Attending Provider Sanaz Schwartz Attending Provider Elli LOPEZ, Dr. Castorena Emergency Provider Alek BLAS, Dr. Shonda Bar Admit Provider Alek BLAS, Dr. Shonda Bar Other Provider Irais BLAS, Dr. Muir Attending Provider Luis Braxton MD, Dr. Muir Other Provider Unavailable Sharif BLAS, Dr. Castorena Attending Provider [phone] Isma BLAS, Dr. Vega Attending Provider Isma [...] Attending Unavailable Olguin, Jessi Primary Care Unavailable oJse Bliss Attending Unavailabl e Olguin, Jessi Primary [...] Unavailable Olguin, Jessi Primary Care Unavailable Ryan TIMBER POISONER, Danni Attending Unavailable Ryan TIMBER POISONER, Danni Referring Unavailable Olguin, Jessi Primary Care [...] Translations: [shellfish derived] Allergy to substance [address] [facility] (1 source) Shellfish Food allergy Weal (disorder) [facility] Medications Current Medications Medication Drug Class(es) Dates [...] with training Start: 06-20-2020 PEP device Act ujan 0 .Route .MEDSUPPLY June 20, 2020 12:22pm [...] qDay, # 30 cap(s), 3 Refill(s), Pharmacy: [facility] #[facility], 190, cm, 06/27/24 12:50:00 EST, Height, [...] 11, 2018 12:00am September 14, 2018 12:10am [id number] 200 actuat albuterol 0.09 mg/actuat metered dose [...] 2019 12:00am May 16, 2021 11:12am amylase 170676 unt / lipase 45083 unt / protease 48331 unt delayed release oral capsule (20 sources) Start: 08-14-2020 End: 05-16-2021 Cmrgvg-Hbwhwxtv-Prxcmnb 1 EA CH capsule,delayed release(DR/EC) Discontinued 1 NMA PO THREE TIMES A DAY August 14, 2020 1:00am May 16, 2021 11:12am Start: 08-14-2020 End: 05-16-2021 Start: 08-14-2020 End: 05-16-2021 Dgcjls-Gcixgkhi-Nhiicrt Disc ontinued 1 EACH PO THREE TIMES [...] qDay, # 30 tab(s), 3 Refill(s), Pharmacy: [facility] #[facility], 190, cm, 06/27/24 12:50:00 EST, [...] qDayM, # 30 tab(s), 3 Refill(s), Pharmacy: [facility] #30, 190, cm, 06/27/24 12:50:00 EST, [...] September 24, 2018 12:10am polyethylene glycol 3350 86528 mg powder for oral solution (4 sources) [...] Coronary atherosclerosis; Translations: [Atherosclerotic heart disease of [place] coronary artery without angina pectoris] Chronic Coronary [...] sources) I25.10 - Atherosclerotic heart disease of [place] coronary artery without angina pectoris,Z95.5 - Presence [...] Pulmonary Visit Reporton Pulmonary Visit Report Normal [facility] Abdomen Limitedon 10-14-2024 Abdomen Limited Normal [facility] Absolute lymphocyte countOrd ered By: Tati Caballero on 09-21-2024 Lymphocytes Auto (Unsp spec) [#/Vol] 1.49 10*3/uL 0.83-4.51 [facility] Absolute neutrophil countOrd ered By: Tati Caballero on 09-21-2024 Neutrophils (Bld) [#/Vol] 2.2 10*3/uL 2.0-7.7 [facility] Anion gap in Serum or Plasma Ordered By: Tati Caballero on 09-21-2024 Anion gap [Moles/Vol] 8 mmol/L 5- [facility] Automated lymphocyte count a s percentage of total leukocytesOrdered By: Tati Caballero on 09-21-2024 Lymphocytes/100 WBC Auto (Unsp spec) 34.3 % [facility] BUN/creatinine ratioOrdered By: Tati Caballero on 09-21-2024 Urea nitrogen/Creatinine [Mass ratio] 20.3 mg/mg High 10- [facility] Basophil percentageOrdered B y: Tati Caballero on 09-21-2024 Basophils/100 WBC (Bld) 0.2 % 0-1 [facility] Bilirubin Test strip Ql (U)O rdered By: Tati Caballero on 09-21-2024 Bilirubin Ql (U) Negative Negative [facility] Bilirubin, totalOrdered By: Tati Caballero on 09-21-2024 Bilirubin [Mass/Vol] 0.60 mg/dL 0.00-1.30 [facility] CBC W/Diff, Automatedon 09-02 MPV TNP Normal 6.2-12.0 [facility] Comment on above: Performed By: #### L 501.2450, L100.0100, L500.4050 ####[facility] [address] [place], [address] Absolute Lymph 1.49 X10 3/uL Normal 0.83-4.51 [facility] Comment on above: Performed By: #### L 501.2450, L100.0100, L500.4050 ####[facility] [address] [place], [address] Absolute Neut 2.2 X10 3/uL Normal 2.0-7.7 [facility] Comment on above: Performed By: #### L 501.2450, L100.0100, L500.4050 ####[facility] [address] [place], [address] Basophils/100 WBC (Bld) 0.2 % Normal 0-1 [facility] Comment on above: Performed By: #### L 501.2450, L100.0100, L500.4050 ####[facility] [address] [place], [address] Eosinophils/100 WBC (Bld) 2.5 % Normal 0-5 [facility] Comment on above: Performed By: #### L 501.2450, L100.0100, L500.4050 ####[facility] [address] [place], [address] Erythrocyte distribution width (RBC) [Ratio] 12.9 % Normal 11.6-14.6 [facility] Comment on above: Performed By: #### L 501.2450, L100.0100, L500.4050 ####[facility] [address] [place], [address] Hematocrit (Bld) [Volume fraction] 34.5 % Low 40-54 [facility] Comment on above: Performed By: #### L 501.2450, L100.0100, L500.4050 ####[facility] [address] [place], [address] Hemoglobin (Bld) [Mass/Vol] 11.3 g/dL Low 13.0-16.5 [facility] Comment on above: Performed By: #### L 501.2450, L100.0100, L500.4050 ####[facility] [address] [place], [address] IG% 0.200 Normal 0.0-0.9 [facility] Comment on above: Result Comment: IG% - Immature Granulocytes (promyelocytes, myelocytes andmetamyelocytes) > 1% indicates that a LEFT SHIFT is Present. Performed By: #### L 501.2450, L100.0100, L500.4050 ####[facility] [address] [place], [address] Lymphocytes/100 WBC (Bld) 34.3 % Normal 19-41 [facility] Comment on above: Performed By: #### L 501.2450, L100.0100, L500.4050 ####[facility] [address] [place], [address] MCH (RBC) [Entitic mass] 30.1 pg Normal 27.0-32.0 [facility] Comment on above: Performed By: #### L 501.2450, L100.0100, L500.4050 ####[facility] [address] [place], [address] MCHC (RBC) [Mass/Vol] 32.8 g/dL Normal 32-36 [facility] Comment on above: Performed By: #### L 501.2450, L100.0100, L500.4050 ####[facility] [address] [place], [address] MCV (RBC) [Entitic vol] 92.0 fL Normal 80-94 [facility] Comment on above: Performed By: #### L 501.2450, L100.0100, L500.4050 ####[facility] [address] [place], [address] Monocytes/100 WBC (Bld) 12.4 % High 0-10 [facility] Comment on above: Performed By: #### L 501.2450, L100.0100, L500.4050 ####[facility] [address] [place], [address] Neutrophils/100 WBC (Bld) 50.4 % Normal 47-70 [facility] Comment on above: Performed By: #### L 501.2450, L100.0100, L500.4050 ####[facility] [address] [place], [address] Nucleated RBC (Bld) [#/Vol] 0 10*3/uL Normal 0-5 [facility] Comment on above: Performed By: #### L 501.2450, L100.0100, L500.4050 ####[facility] [address] [place], [address] RBC (Bld) [#/Vol] 3.75 10*6/uL Low 4.6-6.2 [facility] Comment on above: Performed By: #### L 501.2450, L100.0100, L500.4050 ####[facility] [address] [place], [address] RDW SD 43.1 fl Normal 35.1-43.9 [facility] Comment on above: Performed By: #### L 501.2450, L100.0100, L500.4050 ####[facility] [address] [place], [address] WBC (Bld) [#/Vol] 4.4 10*3/uL Normal 4.4-11.[address] [facility] Comment on above: Performed By: #### L 501.2450, L100.0100, L500.4050 ####[facility] [address] [place], [address] Carbon dioxide, total [Moles /volume] in Central venous bloodOrdered By: Tati Caballero on 09-21-2024 CO2 [Moles/Vol] 25.9 mmol/L 21.0-32.0 [facility] Chloride assayOrdered By: Diamond Caballero on 09-21-2024 Chloride [Moles/Vol] 101 mmol/L 98-108 [facility] Comprehensive Metabolic Prof ilon 09-21-2024 Albumin [Mass/Vol] 3.6 g/dL Normal 3.4-4.[address] [facility] Comment on above: Performed By: #### L 501.2450, L100.0100, L500.4050 ####[facility] [address] [place], [address] Albumin/Globulin [Mass ratio] 0.9 {ratio} Normal 0.9-2.4 [facility] Comment on above: Performed By: #### L 501.2450, L100.0100, L500.4050 ####[facility] [address] [place], [address] ALK PHOS 132 U/L High 40-129 [facility] Comment on above: Performed By: #### L 501.2450, L100.0100, L500.4050 ####[facility] [address] [place], [address] ALT [Catalytic activity/Vol] 13 U/L Normal <=46 [facility] Comment on above: Performed By: #### L 501.2450, L100.0100, L500.4050 ####[facility] [address] [place], [address] AST [Catalytic activity/Vol] 24 U/L Normal <=37 [facility] Comment on above: Performed By: #### L 501.2450, L100.0100, L500.4050 ####[facility] [address] [place], [address] Bilirubin [Mass/Vol] 0.60 mg/dL Normal 0.00-1.30 [facility] Comment on above: Performed By: #### L 501.2450, L100.0100, L500.4050 ####[facility] [address] [place], [address] BUN/CRE 20.3 RATIO High 10-20 [facility] Comment on above: Performed By: #### L 501.2450, L100.0100, L500.4050 ####[facility] [address] [place], [address] Calcium [Mass/Vol] 9.0 mg/dL Normal 7.6-11.[address] [facility] Comment on above: Performed By: #### L 501.2450, L100.0100, L500.4050 ####[facility] [address] [place], [address] Chloride [Moles/Vol] 101 mmol/L Normal 98-108 [facility] Comment on above: Performed By: #### L 501.2450, L100.0100, L500.4050 ####[facility] [address] [place], [address] CO2 [Moles/Vol] 25.9 mmol/L Normal 21.0-32.0 [facility] Comment on above: Performed By: #### L 501.2450, L100.0100, L500.4050 ####[facility] [address] [place], [address] Creatinine [Mass/Vol] 0.96 mg/dL Normal 0.70-1.20 [facility] Comment on above: Performed By: #### L 501.2450, L100.0100, L500.4050 ####[facility] [address] [place], [address] GAP 8 Normal 5-15 [facility] Comment on above: Performed By: #### L 501.2450, L100.0100, L500.4050 ####[facility] [address] [place], [address] GFR/1.73 sq M.predicted among non-blacks MDRD (S/P/Bld) [Vol rate/Area] 82 mL/min/{1.73_m2} Normal >60 [facility] Comment on above: Result Comment: mL/m in/1.73m2 CKD-EPI Creatinine Equation (2020) Performed By: #### L 501.2450, L100.0100, L500.4050 ####[facility] [address] [place], [address] Globulin (S) [Mass/Vol] 3.9 g/dL Normal 2.2-4.2 [facility] Comment on above: Performed By: #### L 501.2450, L100.0100, L500.4050 ####[facility] [address] [place], [address] Glucose [Mass/Vol] 173 mg/dL High 70-[address] [facility] Comment on above: Performed By: #### L 501.2450, L100.0100, L500.4050 ####[facility] [address] [place], [address] Potassium [Moles/Vol] 4.2 mmol/L Normal 3.3-5.1 [facility] Comment on above: Performed By: #### L 501.2450, L100.0100, L500.4050 ####[facility] [address] [place], [address] Sodium [Moles/Vol] 136 mmol/L Normal 133-[address] [facility] Comment on above: Performed By: #### L 501.2450, L100.0100, L500.4050 ####[facility] [address] [place], [address] T PROT 7.5 g/dL Normal 5.9-8.4 [facility] Comment on above: Performed By: #### L 501.2450, L100.0100, L500.4050 ####[facility] [address] [place], [address] Urea nitrogen [Mass/Vol] 19 mg/dL Normal 4-19 [facility] Comment on above: Performed By: #### L 501.2450, L100.0100, L500.4050 ####[facility] [address] [place], [address] Emergency Department Summary on 09-21-2024 Emergency Department Summary Normal [facility] Eosinophil percentageOrdered By: Tati Caballero on 09-21-2024 Eosinophils/100 WBC (Bld) 2.5 % 0-5 [facility] Erythrocyte distribution wid th ratioOrdered By: Tati Caballero on 09-21-2024 Erythrocyte distribution width (RBC) [Ratio] 12.9 % 11.6-14.6 [facility] Erythrocyte distribution wid th standard deviationOrdered By: Tati Caballero on 09-21-2024 Erythrocyte distribution width (RBC) [Ratio] 43.1 fl 35.1-43.9 [facility] Glomerular filtration rate ( GFR) estimation/1.73 sq m using serum, plasma, or whole bOrdered By: Tati Caballero on 09-21-2024 GFR/1.73 sq M.predicted among non-blacks MDRD (S/P/Bld) [Vol rate/Area] 82 mL/min/{1.73_m2} >60 [facility] Comment on above: mL/min/1.73m2 CKD-EP I Creatinine Equation (2020) Hematocrit Auto (Bld) [Volum e fraction]Ordered By: Tati Caballero on 09-21-2024 Hematocrit (Bld) [Volume fraction] 34.5 % Low 40-54 [facility] Hemoglobin measurementOrdere d By: Tati Caballero on 09-21-2024 Hemoglobin (Bld) [Mass/Vol] 11.3 g/dL Low 13.0-16.5 [facility] Immature granulocytes/100 WB C Auto (Bld)Ordered By: Tati Caballero on 09-21-2024 Immature granulocytes/100 WBC (Bld) 0.200 % 0.0-0.9 [facility] Comment on above: IG% - Immature Granu locytes (promyelocytes, myelocytes and metamyelocytes) > 1% indicates that a LEFT SHIFT is Present. Ketones Test strip Ql (U)Ord ered By: Tati Caballero on 09-21-2024 Ketones Ql (U) Negative Negative [facility] Laboratory - Chemistry and C hemistry - challengeOrdered By: Tati Caballero on 09-21-2024 AST [Catalytic activity/Vol] 24 U/L <38 [facility] Lipaseon 09-21-2024 Lipase [Catalytic activity/Vol] 20 U/L Normal 13-75 [facility] Comment on above: Result Comment: Marcelle fritz note:LIPASE revised reference range effective 22.New Lipase methodology. Expected to produce lower valuesthan the previous assay method.NEW Reference Range: 13 - 75 U/L Performed By: #### L 501.2450, L100.0100, L500.4050 ####[facility] [address] [place], [address] Lipase measurementOrdered By : Tati Caballero on 09-21-2024 Lipase [Catalytic activity/Vol] 20 U/L 13-75 [facility] Comment on above: Please note:LIPASE r evised reference range effective 22. New Lipase methodology. Expected to produce lower values than the previous assay method. NEW Reference Range: 13 - 75 U/L MCV (mean corpuscular volume ) determinationOrdered By: Tati Caballero on 09-21-2024 MCV (RBC) [Entitic vol] 92.0 fL 80-94 [facility] Mean corpuscular hemoglobin (MCH) determinationOrdered By: Tati Caballero on 09-21-2024 MCH (RBC) [Entitic mass] 30.1 pg 27.0-32.0 [facility] Mean corpuscular hemoglobin concentration (MCHC) determinationOrdered By: Tati Caballero on 09-21-2024 MCHC (RBC) [Mass/Vol] 32.8 g/dL 32-36 [facility] Mean platelet volume determi nationOrdered By: Tati Caballero on 09-21-2024 Mean platelet volume determination TNP [facility] Comment on above: Test not performed Microscopic analysis of urin e for red blood cells (RBC)Ordered By: Tati Caballero on 09-21-2024 Microscopic analysis of urine for red blood cells (RBC) 0-5 SEEN /hpf 0-5 [facility] Monocyte percentageOrdered B y: Tati Caballero on 09-21-2024 Monocytes/100 WBC (Bld) 12.4 % High 0-10 [facility] Mucus LM Ql (Urine sed)Order ed By: Tati Caballero on 09-21-2024 Mucus Ql (Urine sed) 0 SEEN /hpf [facility] Neutrophil percentageOrdered By: Tati Caballero on 09-21-2024 Neutrophils/100 WBC (Bld) 50.4 % 47-70 [facility] Nitrite Test strip Ql (U)Ord ered By: Tati Caballero on 09-21-2024 Nitrite Ql (U) Negative Negative [facility] No Panel InformationOrdered By: Tati Caballero on 09-21-2024 24 U/L <38 [facility] Nucleated red blood cell per centageOrdered By: Tati Caballero on 09-21-2024 Nucleated RBC/100 WBC (Bld) [Ratio] 0 % 0-5 [facility] Platelet countOrdered By: Diamond Caballero on 09-21-2024 Platelet count TNP [facility] Comment on above: Test not performedPl ease [...] 09-21-2024 Platelets LM Ql (Bld) ADEQUATE ADEQ [facility] Potassium measurement (mass/ volume)Ordered By: Tati Caballero on 09-21-2024 Potassium (Unsp spec) [Mass/Vol] 4.2 mmol/L 3.3-5.1 [facility] Protein Test strip Ql (U)Ord ered By: Tati Caballero on 09-21-2024 Protein Ql (U) 15 mg/dl High Negative [facility] RBC Auto (Bld) [#/Vol]Ordere d By: Tati Caballero on 09-21-2024 RBC (Bld) [#/Vol] 3.75 10*6/uL Low 4.6-6.2 [facility] Serum creatinine measurement (mass/volume)Ordered By: Tati Caballero on 09-21-2024 Creatinine [Mass/Vol] 0.96 mg/dL 0.70-1.20 [facility] Serum globulin measurementOr dered By: Tati Caballero on 09-21-2024 Globulin (S) [Mass/Vol] 3.9 g/dL 2.2-4.2 [facility] Serum glucose measurement (m ass/volume)Ordered By: Tati Caballero on 09-21-2024 Glucose [Mass/Vol] 173 mg/dL High 70-[address] [facility] Serum or plasma alanine grace otransferase (ALT) measurementOrdered By: Tati Caballero on 09-21-2024 ALT [Catalytic activity/Vol] 13 U/L <47 [facility] Serum or plasma albumin shweta urement (mass/volume)Ordered By: Tati Caballero on 09-21-2024 Albumin [Mass/Vol] 3.6 g/dL 3.4-4.[address] [facility] Serum or plasma albumin/glob ulin mass ratioOrdered By: Tati Caballero on 09-21-2024 Albumin/Globulin [Mass ratio] 0.9 {ratio} 0.9-2.4 [facility] Serum or plasma alkaline gibson sphatase measurementOrdered By: Tati Caballero on 09-21-2024 ALP [Catalytic activity/Vol] 132 U/L High 40-129 [facility] Serum or plasma calcium shweta urement (mass/volume)Ordered By: Tati Caballero on 09-21-2024 Calcium [Mass/Vol] 9.0 mg/dL 7.6-11.[address] [facility] Serum or plasma urea nitroge n measurement (mass/volume)Ordered By: Tati Caballero on 09-21-2024 Urea nitrogen [Mass/Vol] 19 mg/dL 4-19 [facility] Sodium levelOrdered By: Kimani Caballero on 09-21-2024 Sodium [Moles/Vol] 136 mmol/L 133-[address] [facility] Squamous epithelial cells de tection in urine sediment by light microscopyOrdered By: Tati Caballero on 09-21-2024 Epithelial cells.squamous LM Ql (Urine sed) 0-5 SEEN /hpf 0-5 [facility] Total proteinOrdered By: Josué Caballero on 09-21-2024 Protein [Mass/Vol] 7.5 g/dL 5.9-8.[address] [facility] Urinalysis, Completeon 09-21 BILIRUBIN URINE Negative Normal Negative [facility] Comment on above: Order Comment: CLEAN CATCH Performed By: #### L 400.0001 ####[facility] [address] [place], [address] Clarity (U) Clear Normal Clear [facility] Comment on above: Order Comment: CLEAN CATCH Performed By: #### L 400.0001 ####[facility] [address] [place], [address] Color (U) Yellow Normal Yellow [facility] Comment on above: Order Comment: CLEAN CATCH Performed By: #### L 400.0001 ####[facility] [address] [place], [address] GLUCOSE, UR Normal Normal Normal [facility] Comment on above: Order Comment: CLEAN CATCH Performed By: #### L 400.0001 ####[facility] [address] [place], [address] KETONE UR Negative Normal Negative [facility] Comment on above: Order Comment: CLEAN CATCH Performed By: #### L 400.0001 ####[facility] [address] [place], [address] LEUK ESTERASE Negative Normal Negative [facility] Comment on above: Order Comment: CLEAN CATCH Performed By: #### L 400.0001 ####[facility] [address] [place], [address] Nitrite Ql (U) Negative Normal Negative [facility] Comment on above: Order Comment: CLEAN CATCH Performed By: #### L 400.0001 ####[facility] [address] [place], [address] OCCULT BLOOD-UR Negative Normal Negative [facility] Comment on above: Order Comment: CLEAN CATCH Performed By: #### L 400.0001 ####[facility] [address] [place], [address] pH UR 6.0 Normal 5.0 - 8.0 [facility] Comment on above: Order Comment: CLEAN CATCH Performed By: #### L 400.0001 ####[facility] [address] [place], [address] PROT DIPSTX 15 mg/dl Abnormal Negative [facility] Comment on above: Order Comment: CLEAN CATCH Performed By: #### L 400.0001 ####[facility] [address] [place], [address] SP.GR. DIPSTX 1.015 Normal 1.002-1.03 0 [facility] Comment on above: Order Comment: CLEAN CATCH Performed By: #### L 400.0001 ####[facility] [address] [place], [address] UROBILI Normal Normal Normal [facility] Comment on above: Order Comment: CLEAN CATCH Performed By: #### L 400.0001 ####[facility] [address] [place], [address] Urine clarityOrdered By: Josué Caballero on 09-21-2024 Clarity (U) Clear Clear [facility] Urine color determinationOrd ered By: Tati Caballero on 09-21-2024 Color (U) Yellow Yellow [facility] Urine glucose detectionOrder ed By: Tati Caballero on 09-21-2024 Glucose Ql (U) Normal mg/dl Normal [facility] Urine leukocyte esterase det ection by dipstickOrdered By: Tati Caballero on 09-21-2024 Leukocyte esterase Test strip Ql (U) Negative Negative [facility] Urine pHOrdered By: Lizzeth Caballero on 09-21-2024 pH (U) 6.0 [pH] 5.0 - 8.0 [facility] Urine sediment bacteria coun t by microscopy (number/high power field)Ordered By: Tati Caballero on 09-21-2024 Bacteria LM.HPF (Urine sed) [#/Area] 0 /[HPF] None Seen [facility] Urine specific gravity measu rementOrdered By: Tati Caballero on 09-21-2024 Specific gravity (U) [Rel density] 1.015 1.002-1.03 0 [facility] Urine urobilinogen measureme ntOrdered By: Tati Caballero on 09-21-2024 Urobilinogen Ql (U) Normal mg/dl Normal [facility] White blood cell (WBC) count Ordered By: Tati Caballero on 09-21-2024 WBC (Bld) [#/Vol] 4.4 10*3/uL 4.4-11.[address] [facility] White blood cell countOrdere d By: Tati Caballero on 09-21-2024 White blood cell count 0-5 SEEN /hpf 0-5 [facility] Basic Metabolic Profile (BMP )on 09-05-2024 BUN Normal 4-19 [facility] Comment on above: Result Comment: Canc elled via OM: Order cancelled - Patient discharged Performed By: #### L 500.2500, L100.0100 ####[facility] [address] [place], [address] BUN/CRE Normal 10-20 [facility] Comment on above: Result Comment: Canc elled via OM: Order cancelled - Patient discharged Performed By: #### L 500.2500, L100.0100 ####[facility] [address] [place], [address] Calcium Normal 7.6-11.0 [facility] Comment on above: Result Comment: Canc elled via OM: Order cancelled - Patient discharged Performed By: #### L 500.2500, L100.0100 ####[facility] [address] [place], [address] CL Normal 98-108 [facility] Comment on above: Result Comment: Canc elled via OM: Order cancelled - Patient discharged Performed By: #### L 500.2500, L100.0100 ####[facility] [address] [place], [address] CO2 Normal 21.0-32.0 [facility] Comment on above: Result Comment: Canc elled via OM: Order cancelled - Patient discharged Performed By: #### L 500.2500, L100.0100 ####[facility] [address] [place], [address] CREAT,SERUM Normal 0.70-1.20 [facility] Comment on above: Result Comment: Canc elled via OM: Order cancelled - Patient discharged Performed By: #### L 500.2500, L100.0100 ####[facility] [address] [place], [address] eGFR Normal >60 [facility] Comment on above: Result Comment: Canc elled via OM: Order cancelled - Patient discharged Performed By: #### L 500.2500, L100.0100 ####[facility] [address] [place], [address] GAP Normal 5-15 [facility] Comment on above: Result Comment: Canc elled via OM: Order cancelled - Patient discharged Performed By: #### L 500.2500, L100.0100 ####[facility] [address] [place], [address] GLU Normal 70-99 [facility] Comment on above: Result Comment: Canc elled via OM: Order cancelled - Patient discharged Performed By: #### L 500.2500, L100.0100 ####[facility] [address] [place], [address] Potassium Normal 3.3-5.1 [facility] Comment on above: Result Comment: Canc elled via OM: Order cancelled - Patient discharged Performed By: #### L 500.2500, L100.0100 ####[facility] [address] [place], [address] Basic Metabolic Profile (BMP) Normal 133-145 [facility] Comment on above: Result Comment: Canc elled via OM: Order cancelled - Patient discharged Performed By: #### L 500.2500, L100.0100 ####[facility] [address] [place], [address] CBC W/Diff, Automatedon 04-0 -2024 Absolute Neut Normal 2.0-7.7 [facility] Comment on above: Result Comment: Canc elled via OM: Order cancelled - Patient discharged Performed By: #### L 500.2500, L100.0100 ####[facility] [address] [place], [address] HCT Normal 40-54 [facility] Comment on above: Result Comment: Canc elled via OM: Order cancelled - Patient discharged Performed By: #### L 500.2500, L100.0100 ####[facility] [address] [place], [address] HGB Normal 13.0-16.5 [facility] Comment on above: Result Comment: Canc elled via OM: Order cancelled - Patient discharged Performed By: #### L 500.2500, L100.0100 ####[facility] [address] [place], [address] MCH Normal 27.0-32.0 [facility] Comment on above: Result Comment: Canc elled via OM: Order cancelled - Patient discharged Performed By: #### L 500.2500, L100.0100 ####[facility] [address] [place], [address] MCHC Normal 32-36 [facility] Comment on above: Result Comment: Canc elled via OM: Order cancelled - Patient discharged Performed By: #### L 500.2500, L100.0100 ####[facility] [address] [place], [address] MCV Normal 80-94 [facility] Comment on above: Result Comment: Canc elled via OM: Order cancelled - Patient discharged Performed By: #### L 500.2500, L100.0100 ####[facility] [address] [place], [address] NEUT% Normal 47-70 [facility] Comment on above: Result Comment: Canc elled via OM: Order cancelled - Patient discharged Performed By: #### L 500.2500, L100.0100 ####[facility] [address] [place], [address] PLT Normal 150-450 [facility] Comment on above: Result Comment: Canc elled via OM: Order cancelled - Patient discharged Performed By: #### L 500.2500, L100.0100 ####[facility] [address] [place], [address] RBC Normal 4.6-6.2 [facility] Comment on above: Result Comment: Canc elled via OM: Order cancelled - Patient discharged Performed By: #### L 500.2500, L100.0100 ####[facility] [address] [place], [address] RDW CV Normal 11.6-14.6 [facility] Comment on above: Result Comment: Canc elled via OM: Order cancelled - Patient discharged Performed By: #### L 500.2500, L100.0100 ####[facility] [address] [place], [address] RDW SD Normal 35.1-43.9 [facility] Comment on above: Result Comment: Canc elled via OM: Order cancelled - Patient discharged Performed By: #### L 500.2500, L100.0100 ####[facility] [address] [place], [address] WBC Normal 4.4-11.0 [facility] Comment on above: Result Comment: Canc elled via OM: Order cancelled - Patient discharged Performed By: #### L 500.2500, L100.0100 ####[facility] [address] [place], [address] Absolute lymphocyte countOrd ered By: Jessi Olguin on 09-04-2024 Lymphocytes Auto (Unsp spec) [#/Vol] 1.13 10*3/uL 0.83-4.51 [facility] Absolute neutrophil countOrd ered By: Jessi Olguin on 09-04-2024 Neutrophils (Bld) [#/Vol] 3.4 10*3/uL 2.0-7.7 [facility] Anion gap in Serum or Plasma Ordered By: Jessi Olguin on 09-04-2024 Anion gap [Moles/Vol] 9 mmol/L 5-15 [facility] Automated lymphocyte count a s percentage of total leukocytesOrdered By: Jessi Olguin on 09-04-2024 Lymphocytes/100 WBC Auto (Unsp spec) 21.6 % 19-41 [facility] BUN/creatinine ratioOrdered By: Jessi Olguin on 09-04-2024 Urea nitrogen/Creatinine [Mass ratio] 21.4 mg/mg High 10-20 [facility] Basic Metabolic Profile (BMP )on 09-04-2024 BUN Normal 4-19 [facility] Comment on above: Result Comment: Canc elled via OM: Order cancelled - Patient discharged Performed By: #### L 500.2500, L100.0100 ####[facility] [address] [place], [address] BUN/CRE Normal 10-20 [facility] Comment on above: Result Comment: Canc elled via OM: Order cancelled - Patient discharged Performed By: #### L 500.2500, L100.0100 ####[facility] [address] [place], [address] Calcium Normal 7.6-11.0 [facility] Comment on above: Result Comment: Canc elled via OM: Order cancelled - Patient discharged Performed By: #### L 500.2500, L100.0100 ####[facility] [address] [place], [address] CL Normal 98-108 [facility] Comment on above: Result Comment: Canc elled via OM: Order cancelled - Patient discharged Performed By: #### L 500.2500, L100.0100 ####[facility] [address] [place], [address] CO2 Normal 21.0-32.0 [facility] Comment on above: Result Comment: Canc elled via OM: Order cancelled - Patient discharged Performed By: #### L 500.2500, L100.0100 ####[facility] [address] [place], [address] CREAT,SERUM Normal 0.70-1.20 [facility] Comment on above: Result Comment: Canc elled via OM: Order cancelled - Patient discharged Performed By: #### L 500.2500, L100.0100 ####[facility] [address] [place], [address] eGFR Normal >60 [facility] Comment on above: Result Comment: Canc elled via OM: Order cancelled - Patient discharged Performed By: #### L 500.2500, L100.0100 ####[facility] [address] [place], [address] GAP Normal 5-15 [facility] Comment on above: Result Comment: Canc elled via OM: Order cancelled - Patient discharged Performed By: #### L 500.2500, L100.0100 ####[facility] [address] [place], [address] GLU Normal 70-99 [facility] Comment on above: Result Comment: Canc elled via OM: Order cancelled - Patient discharged Performed By: #### L 500.2500, L100.0100 ####[facility] [address] [place], [address] Potassium Normal 3.3-5.1 [facility] Comment on above: Result Comment: Canc elled via OM: Order cancelled - Patient discharged Performed By: #### L 500.2500, L100.0100 ####[facility] [address] [place], [address] Basic Metabolic Profile (BMP) Normal 133-145 [facility] Comment on above: Result Comment: Canc elled via OM: Order cancelled - Patient discharged Performed By: #### L 500.2500, L100.0100 ####[facility] [address] [place], [address] Basophil percentageOrdered B y: Jessi Sharif on 09-04-2024 Basophils/100 WBC (Bld) 0.4 % 0-1 [facility] Bilirubin, totalOrdered By: Jessi Olguin on 09-04-2024 Bilirubin [Mass/Vol] 0.56 mg/dL 0.00-1.30 [facility] CBC W/Diff, Automatedon 04-0 PLT EST SLT DEC Normal ADEQ [facility] Comment on above: Order Comment: Order Date: 09/04/24Order Info: [id number] - CBCD Performed By: #### L 100.0100, L501.9985, L500.4050 ####[facility] [address] [place], [address] Absolute Neut Normal 2.0-7.7 [facility] Comment on above: Result Comment: Canc elled via OM: Order cancelled - Patient discharged Performed By: #### L 500.2500, L100.0100 ####[facility] [address] [place], [address] HCT Normal 40-54 [facility] Comment on above: Result Comment: Canc elled via OM: Order cancelled - Patient discharged Performed By: #### L 500.2500, L100.0100 ####[facility] [address] [place], [address] HGB Normal 13.0-16.5 [facility] Comment on above: Result Comment: Canc elled via OM: Order cancelled - Patient discharged Performed By: #### L 500.2500, L100.0100 ####[facility] [address] [place], [address] MCH Normal 27.0-32.0 [facility] Comment on above: Result Comment: Canc elled via OM: Order cancelled - Patient discharged Performed By: #### L 500.2500, L100.0100 ####[facility] [address] [place], [address] MCHC Normal 32-36 [facility] Comment on above: Result Comment: Canc elled via OM: Order cancelled - Patient discharged Performed By: #### L 500.2500, L100.0100 ####[facility] [address] [place], [address] MCV Normal 80-94 [facility] Comment on above: Result Comment: Canc elled via OM: Order cancelled - Patient discharged Performed By: #### L 500.2500, L100.0100 ####[facility] [address] [place], [address] NEUT% Normal 47-70 [facility] Comment on above: Result Comment: Canc elled via OM: Order cancelled - Patient discharged Performed By: #### L 500.2500, L100.0100 ####[facility] [address] [place], [address] PLT Normal 150-450 [facility] Comment on above: Result Comment: Canc elled via OM: Order cancelled - Patient discharged Performed By: #### L 500.2500, L100.0100 ####[facility] [address] [place], [address] RBC Normal 4.6-6.2 [facility] Comment on above: Result Comment: Canc elled via OM: Order cancelled - Patient discharged Performed By: #### L 500.2500, L100.0100 ####[facility] [address] [place], [address] RDW CV Normal 11.6-14.6 [facility] Comment on above: Result Comment: Canc elled via OM: Order cancelled - Patient discharged Performed By: #### L 500.2500, L100.0100 ####[facility] [address] [place], [address] RDW SD Normal 35.1-43.9 [facility] Comment on above: Result Comment: Canc elled via OM: Order cancelled - Patient discharged Performed By: #### L 500.2500, L100.0100 ####[facility] [address] [place], [address] WBC Normal 4.4-11.0 [facility] Comment on above: Result Comment: Canc elled via OM: Order cancelled - Patient discharged Performed By: #### L 500.2500, L100.0100 ####[facility] [address] [place], [address] Carbon dioxide, total [Moles /volume] in Central venous bloodOrdered By: Jessi Olguin on 09-04-2024 CO2 [Moles/Vol] 22.9 mmol/L 21.0-32.0 [facility] Chloride assayOrdered By: Oscar Olguin on 09-04-2024 Chloride [Moles/Vol] 105 mmol/L 98-108 [facility] Comprehensive Metabolic Prof ilon 09-04-2024 Albumin [Mass/Vol] 3.5 g/dL Normal 3.4-4.[address] [facility] Comment on above: Order Comment: Order Date: 09/04/24Order Info: [id number] - CMP Performed By: #### L 100.0100, L501.9985, L500.4050 ####[facility] [address] [place], [address] Albumin/Globulin [Mass ratio] 0.9 {ratio} Normal 0.9-2.4 [facility] Comment on above: Order Comment: Order Date: 09/04/24Order Info: [id number] - CMP Performed By: #### L 100.0100, L501.9985, L500.4050 ####[facility] [address] [place], [address] ALK PHOS 117 U/L Normal 40-129 [facility] Comment on above: Order Comment: Order Date: 09/04/24Order Info: [id number] - CMP Performed By: #### L 100.0100, L501.9985, L500.4050 ####[facility] [address] [place], [address] ALT [Catalytic activity/Vol] 12 U/L Normal <=46 [facility] Comment on above: Order Comment: Order Date: 09/04/24Order Info: [id number] - CMP Performed By: #### L 100.0100, L501.9985, L500.4050 ####[facility] [address] [place], [address] AST [Catalytic activity/Vol] 19 U/L Normal <=37 [facility] Comment on above: Order Comment: Order Date: 09/04/24Order Info: [id number] - CMP Performed By: #### L 100.0100, L501.9985, L500.4050 ####[facility] [address] [place], [address] Bilirubin [Mass/Vol] 0.56 mg/dL Normal 0.00-1.30 [facility] Comment on above: Order Comment: Order Date: 09/04/24Order Info: 0786-1 - CMP Performed By: #### L 100.0100, L501.9985, L500.4050 ####[facility] [address] [place], [address] BUN/CRE 21.4 RATIO High 10-20 [facility] Comment on above: Order Comment: Order Date: 09/04/24Order Info: [id number] - CMP Performed By: #### L 100.0100, L501.9985, L500.4050 ####[facility] [address] [place], [address] Calcium [Mass/Vol] 9.1 mg/dL Normal 7.6-11.[address] [facility] Comment on above: Order Comment: Order Date: 09/04/24Order Info: 0786-1 - CMP Performed By: #### L 100.0100, L501.9985, L500.4050 ####[facility] [address] [place], [address] Chloride [Moles/Vol] 105 mmol/L Normal 98-108 [facility] Comment on above: Order Comment: Order Date: 09/04/24Order Info: 0786-1 - CMP Performed By: #### L 100.0100, L501.9985, L500.4050 ####[facility] [address] [place], [address] CO2 [Moles/Vol] 22.9 mmol/L Normal 21.0-32.0 [facility] Comment on above: Order Comment: Order Date: 09/04/24Order Info: [id number] - CMP Performed By: #### L 100.0100, L501.9985, L500.4050 ####[facility] [address] [place], [address] Creatinine [Mass/Vol] 0.91 mg/dL Normal 0.70-1.20 [facility] Comment on above: Order Comment: Order Date: 09/04/24Order Info: 0786-1 - CMP Performed By: #### L 100.0100, L501.9985, L500.4050 ####[facility] [address] [place], [address] GAP 9 Normal 5-15 [facility] Comment on above: Order Comment: Order Date: 09/04/24Order Info: 0786-1 - CMP Performed By: #### L 100.0100, L501.9985, L500.4050 ####[facility] [address] [place], [address] GFR/1.73 sq M.predicted among non-blacks MDRD (S/P/Bld) [Vol rate/Area] 88 mL/min/{1.73_m2} Normal >60 [facility] Comment on above: Order Comment: Order Date: 09/04/24Order Info: 0786-1 - CMP Result Comment: mL/m in/1.73m2 CKD-EPI Creatinine Equation (2020) Performed By: #### L 100.0100, L501.9985, L500.4050 ####[facility] [address] [place], [address] Globulin (S) [Mass/Vol] 4.1 g/dL Normal 2.2-4.2 [facility] Comment on above: Order Comment: Order Date: 09/04/24Order Info: 0786-1 - CMP Performed By: #### L 100.0100, L501.9985, L500.4050 ####[facility] [address] [place], [address] Glucose [Mass/Vol] 176 mg/dL High 70-[address] [facility] Comment on above: Order Comment: Order Date: 09/04/24Order Info: 0786-1 - CMP Performed By: #### L 100.0100, L501.9985, L500.4050 ####[facility] [address] [place], [address] Potassium [Moles/Vol] 3.9 mmol/L Normal 3.3-5.1 [facility] Comment on above: Order Comment: Order Date: 09/04/24Order Info: 0786-1 - CMP Performed By: #### L 100.0100, L501.9985, L500.4050 ####[facility] [address] [place], [address] Sodium [Moles/Vol] 137 mmol/L Normal 133-[address] [facility] Comment on above: Order Comment: Order Date: 09/04/24Order Info: 0786-1 - CMP Performed By: #### L 100.0100, L501.9985, L500.4050 ####[facility] [address] [place], [address] T PROT 7.6 g/dL Normal 5.9-8.4 [facility] Comment on above: Order Comment: Order Date: 09/04/24Order Info: 0786-1 - CMP Performed By: #### L 100.0100, L501.9985, L500.4050 ####[facility] [address] [place], [address] Urea nitrogen [Mass/Vol] 19 mg/dL Normal 4-19 [facility] Comment on above: Order Comment: Order Date: 09/04/24Order Info: [id number] - CMP Performed By: #### L 100.0100, L501.9985, L500.4050 ####[facility] [address] [place], [address] Eosinophil percentageOrdered By: Jessi Olguin on 09-04-2024 Eosinophils/100 WBC (Bld) 3.6 % 0-5 [facility] Erythrocyte distribution wid th (RBC) [Ratio]Ordered By: Jessi Olguin on 09-04-2024 Erythrocyte distribution width (RBC) [Entitic vol] 50.0 fL High 35.1-43.9 [facility] Erythrocyte distribution wid th ratioOrdered By: Jessi Olguin on 09-04-2024 Erythrocyte distribution width (RBC) [Ratio] 14.1 % 11.6-14.6 [facility] Erythrocyte distribution wid th standard deviationOrdered By: Jessi Olguin on 09-04-2024 Erythrocyte distribution width (RBC) [Ratio] 50.0 fl High 35.1-43.9 [facility] GFR/1.73 sq M.predicted mikayla g non-blacks MDRD (S/P/Bld) [Vol rate/Area]Ordered By: Jessi Olguin on 09-04-2024 Estimated GFR (MDRD) Non-Af Amer 88 >60 [facility] Comment on above: mL/min/1.73m2 CKD-EP I Creatinine Equation (2020) Glomerular filtration rate ( GFR) estimation/1.73 sq m using serum, plasma, or whole bOrdered By: Jessi Olguin on 09-04-2024 GFR/1.73 sq M.predicted among non-blacks MDRD (S/P/Bld) [Vol rate/Area] 88 mL/min/{1.73_m2} >60 [facility] Comment on above: mL/min/1.73m2 CKD-EP I Creatinine Equation (2020) Hematocrit Auto (Bld) [Volum e fraction]Ordered By: Jessi Olguin on 09-04-2024 Hematocrit (Bld) [Volume fraction] 35.4 % Low 40-54 [facility] Hemoglobin A1con 09-04-2024 HbA1c (Bld) [Mass fraction] 6.8 % Normal <=5.6 [facility] Comment on above: Order Comment: Order Date: 09/04/24Order Info: [id number] - A1C Performed By: #### L 100.0100, L501.9985, L500.4050 ####[facility] [address] [place], [place], [address] Hemoglobin A1c percentageOrd ered By: Jessi Olguin on 09-04-2024 HbA1c (Bld) [Mass fraction] 6.8 % >5.7 [facility] Hemoglobin measurementOrdere d By: Jessi Olguin on 09-04-2024 Hemoglobin (Bld) [Mass/Vol] 11.4 g/dL Low 13.0-16.5 [facility] Immature granulocytes/100 WB C Auto (Bld)Ordered By: Jessi Olguin on 09-04-2024 Immature granulocytes/100 WBC (Bld) 0.600 % 0.0-0.9 [facility] Comment on above: IG% - Immature Granu locytes (promyelocytes, myelocytes and metamyelocytes) > 1% indicates that a LEFT SHIFT is Present. Laboratory - Chemistry and C hemistry - challengeOrdered By: Jessi Olguin on 09-04-2024 AST [Catalytic activity/Vol] 19 U/L <38 [facility] Lymphocytes Auto (Unsp spec) [#/Vol]Ordered By: Jessi Olguin on 09-04-2024 Lymphocytes (Bld) [#/Vol] 1.13 10*3/uL 0.83-4.51 [facility] Lymphocytes/100 WBC Auto (Un sp spec)Ordered By: Jessi Olguin on 09-04-2024 Lymphocytes/100 WBC (Bld) 21.6 % 19-41 [facility] MCV (mean corpuscular volume ) determinationOrdered By: Jessi Olguin on 09-04-2024 MCV (RBC) [Entitic vol] 96.2 fL High 80-94 [facility] Mean corpuscular hemoglobin (MCH) determinationOrdered By: Jessi Olguin on 09-04-2024 MCH (RBC) [Entitic mass] 31.0 pg 27.0-32.0 [facility] Mean corpuscular hemoglobin concentration (MCHC) determinationOrdered By: Jessi Olguin on 09-04-2024 MCHC (RBC) [Mass/Vol] 32.2 g/dL 32-36 [facility] Mean platelet volume determi nationOrdered By: Jessi Olguin on 09-04-2024 Platelet mean volume (Bld) [Entitic vol] 13.9 fL High 6.2-12.0 [facility] Monocyte percentageOrdered B y: Jessi Olguin on 09-04-2024 Monocytes/100 WBC (Bld) 9.8 % 0-10 [facility] Neutrophil percentageOrdered By: Jessi Olguin on 09-04-2024 Neutrophils/100 WBC (Bld) 64.0 % 47-70 [facility] No Panel InformationOrdered By: Jessi Olguin on 09-04-2024 19 U/L <38 [facility] Nucleated red blood cell per centageOrdered By: Jessi Olguin on 09-04-2024 Nucleated RBC/100 WBC (Bld) [Ratio] 0 % 0-5 [facility] Platelet countOrdered By: Oscar Olguin on 09-04-2024 Platelet Count See comment [id number] [facility] Comment on above: Please note: For thi [...] Platelets LM Ql (Bld) SLT DEC ADEQ [facility] Platelets LM Ql (Bld)Ordered By: Jessi Olguin on 09-04-2024 Platelet Estimate [facility] Potassium (Unsp spec) [Mass/ Vol]Ordered By: Jessi Olguin on 09-04-2024 Potassium [Moles/Vol] 3.9 mmol/L 3.3-5.1 [facility] Potassium measurement (mass/ volume)Ordered By: Jessi Olguin on 09-04-2024 Potassium (Unsp spec) [Mass/Vol] 3.9 mmol/L 3.3-5.1 [facility] RBC Auto (Bld) [#/Vol]Ordere d By: Jessi Olguin on 09-04-2024 RBC (Bld) [#/Vol] 3.68 10*6/uL Low 4.6-6.2 [facility] Serum creatinine measurement (mass/volume)Ordered By: Jessi Olguin on 09-04-2024 Creatinine [Mass/Vol] 0.91 mg/dL 0.70-1.20 [facility] Serum globulin measurementOr dered By: Jessi Olguin on 09-04-2024 Globulin (S) [Mass/Vol] 4.1 g/dL 2.2-4.2 [facility] Serum glucose measurement (m ass/volume)Ordered By: Jessi Olguin on 09-04-2024 Glucose [Mass/Vol] 176 mg/dL High 70-[address] [facility] Serum or plasma alanine grace otransferase (ALT) measurementOrdered By: Jessi Olguin on 09-04-2024 ALT [Catalytic activity/Vol] 12 U/L <47 [facility] Serum or plasma albumin shweta urement (mass/volume)Ordered By: Jessi Olguin on 09-04-2024 Albumin [Mass/Vol] 3.5 g/dL 3.4-4.[address] [facility] Serum or plasma albumin/glob ulin mass ratioOrdered By: Jessi Olguin on 09-04-2024 Albumin/Globulin [Mass ratio] 0.9 {ratio} 0.9-2.4 [facility] Serum or plasma alkaline gibson sphatase measurementOrdered By: Jessi Olguin on 09-04-2024 ALP [Catalytic activity/Vol] 117 U/L 40-129 [facility] Serum or plasma calcium shweta urement (mass/volume)Ordered By: Jessi Olguin on 09-04-2024 Calcium [Mass/Vol] 9.1 mg/dL 7.6-11.[address] [facility] Serum or plasma urea nitroge n measurement (mass/volume)Ordered By: Jessi Olguin on 09-04-2024 Urea nitrogen [Mass/Vol] 19 mg/dL 4-19 [facility] Sodium levelOrdered By: Jessi Olguin on 09-04-2024 Sodium [Moles/Vol] 137 mmol/L 133-[address] [facility] Total proteinOrdered By: Ana Luisa Olguin on 09-04-2024 Protein [Mass/Vol] 7.6 g/dL 5.9-8.[address] [facility] White blood cell (WBC) count Ordered By: Jessi Olguin on 09-04-2024 WBC (Bld) [#/Vol] 5.2 10*3/uL 4.4-11.[address] [facility] Absolute lymphocyte countOrd ered By: Wood Braxton on 09-03-2024 Lymphocytes Auto (Unsp spec) [#/Vol] 1.57 10*3/uL 0.83-4.51 [facility] Absolute neutrophil countOrd ered By: Wood Braxton on 09-03-2024 Neutrophils (Bld) [#/Vol] 2.8 10*3/uL 2.0-7.7 [facility] Anion gap in Serum or Plasma Ordered By: Wood Braxton on 09-03-2024 Anion gap [Moles/Vol] 10 mmol/L 5-15 [facility] Automated lymphocyte count a s percentage of total leukocytesOrdered By: Wood Braxton on 09-03-2024 Lymphocytes/100 WBC Auto (Unsp spec) 30.3 % 19-41 [facility] BUN/creatinine ratioOrdered By: Wood Braxton on 09-03-2024 Urea nitrogen/Creatinine [Mass ratio] 25.6 mg/mg High 10-20 [facility] Basic Metabolic Profile (BMP )on 09-03-2024 BUN/CRE 25.6 RATIO High 10- [facility] Comment on above: Performed By: #### L 501.5200, L501.2300, L100.0100, L500.2500 ####[facility] [address] [place], [address] Calcium [Mass/Vol] 8.7 mg/dL Normal 7.6-11.[address] [facility] Comment on above: Performed By: #### L 501.5200, L501.2300, L100.0100, L500.2500 ####[facility] [address] [place], [address] Chloride [Moles/Vol] 104 mmol/L Normal 98-108 [facility] Comment on above: Performed By: #### L 501.5200, L501.2300, L100.0100, L500.2500 ####[facility] [address] [place], [address] CO2 [Moles/Vol] 21.9 mmol/L Normal 21.0-32.0 [facility] Comment on above: Performed By: #### L 501.5200, L501.2300, L100.0100, L500.2500 ####[facility] [address] [place], [address] Creatinine [Mass/Vol] 0.80 mg/dL Normal 0.70-1.20 [facility] Comment on above: Performed By: #### L 501.5200, L501.2300, L100.0100, L500.2500 ####[facility] [address] [place], [address] ECRCL 103.22 ml/min Normal 50-250 [facility] Comment on above: Performed By: #### L 501.5200, L501.2300, L100.0100, L500.2500 ####[facility] [address] [place], [address] GAP 10 Normal 5-15 [facility] Comment on above: Performed By: #### L 501.5200, L501.2300, L100.0100, L500.2500 ####[facility] [address] [place], [address] GFR/1.73 sq M.predicted among non-blacks MDRD (S/P/Bld) [Vol rate/Area] 92 mL/min/{1.73_m2} Normal >60 [facility] Comment on above: Result Comment: mL/m in/1.73m2 CKD-EPI Creatinine Equation (2020) Performed By: #### L 501.5200, L501.2300, L100.0100, L500.2500 ####[facility] [address] [place], [address] Glucose [Mass/Vol] 148 mg/dL High 70-[address] [facility] Comment on above: Performed By: #### L 501.5200, L501.2300, L100.0100, L500.2500 ####[facility] [address] [place], [address] Potassium [Moles/Vol] 4.1 mmol/L Normal 3.3-5.1 [facility] Comment on above: Performed By: #### L 501.5200, L501.2300, L100.0100, L500.2500 ####[facility] [address] [place], [address] Sodium [Moles/Vol] 136 mmol/L Normal 133-[address] [facility] Comment on above: Performed By: #### L 501.5200, L501.2300, L100.0100, L500.2500 ####[facility] [address] [place], [address] Urea nitrogen [Mass/Vol] 21 mg/dL High 4-19 [facility] Comment on above: Performed By: #### L 501.5200, L501.2300, L100.0100, L500.2500 ####[facility] [address] [place], [address] Basophil percentageOrdered B y: Wood Braxton on 09-03-2024 Basophils/100 WBC (Bld) 0.6 % 0-1 [facility] Bedside Glucoseon 09-03-2024 FINGERSTICK GLU 146 mg/dL High 74-106 [facility] Comment on above: Result Comment: MARIUM GEMENT OF PATIENT CARE PER NURSING PROTOCOL Performed By: #### L 501.080 ####[facility] [address] [place], [address] FINGERSTICK GLU 151 mg/dL High 74-106 [facility] Comment on above: Result Comment: MARIUM GEMENT OF PATIENT CARE PER NURSING PROTOCOL Performed By: #### L 501.080 ####[facility] [address] [place], [address] CBC W/Diff, Automatedon PLT TNP Normal 150-450 [facility] Comment on above: Result Comment: Plea se note: For this sample, a platelet estimate isprovided rather than a platelet count due to plateletclumping. Other parameters associated with this sample arenot affected by platelet clumping. If a more accurateplatelet count is required, a redraw of the patient will benecessary. Performed By: #### L 501.5200, L501.2300, L100.0100, L500.2500 ####[facility] [address] [place], [address] PLT EST ADEQUATE Normal ADEQ [facility] Comment on above: Performed By: #### L 501.5200, L501.2300, L100.0100, L500.2500 ####[facility] [address] [place], [address] Carbon dioxide, total [Moles /volume] in Central venous bloodOrdered By: Wood Braxton on 09-03-2024 CO2 [Moles/Vol] 21.9 mmol/L 21.0-32.0 [facility] Chloride assayOrdered By: Romulo Braxton on 09-03-2024 Chloride [Moles/Vol] 104 mmol/L 98-108 [facility] Eosinophil percentageOrdered By: Wood Braxton on 09-03-2024 Eosinophils/100 WBC (Bld) 2.1 % 0-5 [facility] Erythrocyte distribution wid th (RBC) [Ratio]Ordered By: Wood Braxton on 09-03-2024 Erythrocyte distribution width (RBC) [Entitic vol] 48.0 fL High 35.1-43.9 [facility] Erythrocyte distribution wid th ratioOrdered By: Wood Braxton on 09-03-2024 Erythrocyte distribution width (RBC) [Ratio] 14.0 % 11.6-14.6 [facility] Erythrocyte distribution wid th standard deviationOrdered By: Wood Braxton on 09-03-2024 Erythrocyte distribution width (RBC) [Ratio] 48.0 fl High 35.1-43.9 [facility] Estimation of creatinine dennys aranceOrdered By: Wood Braxton on 09-03-2024 Estimated Creatinine Clearance Calc 103.22 ml/min 50-250 [facility] GFR/1.73 sq M.predicted mikayla g non-blacks MDRD (S/P/Bld) [Vol rate/Area]Ordered By: Wood Braxton on 09-03-2024 Estimated GFR (MDRD) Non-Af Amer 92 >60 [facility] Comment on above: mL/min/1.73m2 CKD-EP I Creatinine Equation (2020) Glomerular filtration rate ( GFR) estimation/1.73 sq m using serum, plasma, or whole bOrdered By: Wood Braxton on 09-03-2024 GFR/1.73 sq M.predicted among non-blacks MDRD (S/P/Bld) [Vol rate/Area] 92 mL/min/{1.73_m2} >60 [facility] Comment on above: mL/min/1.73m2 CKD-EP I Creatinine Equation (2020) [facility] deOrdered By: Wood Braxton on 09-03-2024 Bedside Glucose (Misc Panel) 146 mg/dL High 74-106 [facility] Comment on above: MANAGEMENT OF PATIEN T CARE PER NURSING PROTOCOL Glucose [Mass/Vol] 146 mg/dL High 74-[address] [facility] Comment on above: MANAGEMENT OF PATIEN T CARE PER NURSING PROTOCOL Hematocrit Auto (Bld) [Volum e fraction]Ordered By: Wood Braxton on 09-03-2024 Hematocrit (Bld) [Volume fraction] 31.8 % Low 40-54 [facility] Hemoglobin measurementOrdere d By: Wood Braxton on 09-03-2024 Hemoglobin (Bld) [Mass/Vol] 10.6 g/dL Low 13.0-16.5 [facility] Immature granulocytes/100 WB C Auto (Bld)Ordered By: Wood Braxton on 09-03-2024 Immature granulocytes/100 WBC (Bld) 0.600 % 0.0-0.9 [facility] Comment on above: IG% - Immature Granu locytes (promyelocytes, myelocytes and metamyelocytes) > 1% indicates that a LEFT SHIFT is Present. Legionella Antigen Urineon 0 09-03-2024 LEGU Normal [facility] Comment on above: Performed By: #### M 300.3289, M300.7050 ####[facility] [address] [place], [place], [address] Lymphocytes Auto (Unsp spec) [#/Vol]Ordered By: Wood Braxton on 09-03-2024 Lymphocytes (Bld) [#/Vol] 1.57 10*3/uL 0.83-4.51 [facility] Lymphocytes/100 WBC Auto (Un sp spec)Ordered By: Wood Braxton on 09-03-2024 Lymphocytes/100 WBC (Bld) 30.3 % 19-41 [facility] MCV (mean corpuscular volume ) determinationOrdered By: Wood Braxton on 09-03-2024 MCV (RBC) [Entitic vol] 93.5 fL 80-94 [facility] Magnesiumon 09-03-2024 Magnesium [Mass/Vol] 1.9 mg/dL Normal 1.5-2.2 [facility] Comment on above: Performed By: #### L 501.5200, L501.2300, L100.0100, L500.2500 ####[facility] [address] [place], [place], [address] Magnesium (Unsp spec) [Mass/ Vol]Ordered By: Wood Braxton on 09-03-2024 Magnesium [Mass/Vol] 1.9 mg/dL 1.5-2.2 [facility] Magnesium measurement (mass/ volume)Ordered By: Wood Braxton on 09-03-2024 Magnesium (Unsp spec) [Mass/Vol] 1.9 mg/dL 1.5-2.2 [facility] Mean corpuscular hemoglobin (MCH) determinationOrdered By: Wood Braxton on 09-03-2024 MCH (RBC) [Entitic mass] 31.2 pg 27.0-32.0 [facility] Mean corpuscular hemoglobin concentration (MCHC) determinationOrdered By: Wood Braxton on 09-03-2024 MCHC (RBC) [Mass/Vol] 33.3 g/dL 32-36 [facility] Mean platelet volume determi nationOrdered By: Wood Braxton on 09-03-2024 [facility] Comment on above: Test not performed Mean platelet volume determination [facility] Comment on above: Test not performed Monocyte percentageOrdered B y: Wood Braxton on 09-03-2024 Monocytes/100 WBC (Bld) 12.2 % High 0-10 [facility] Neutrophil percentageOrdered By: Wood Braxton on 09-03-2024 Neutrophils/100 WBC (Bld) 54.2 % 47-70 [facility] Nucleated red blood cell per centageOrdered By: Wood Braxton on 09-03-2024 Nucleated RBC/100 WBC (Bld) [Ratio] 0 % 0-5 [facility] Phosphoruson 09-03-2024 Phosphate [Mass/Vol] 3.2 mg/dL Normal 2.7-4.5 [facility] Comment on above: Performed By: #### L 501.5200, L501.2300, L100.0100, L500.2500 ####[facility] [address] [place], [address] Platelet countOrdered By: Romulo Braxton on 09-03-2024 Platelet Count TNP [facility] Comment on above: Test not performedPl ease [...] on 09-03-2024 Platelets LM Ql (Bld) [facility] Platelets LM Ql (Bld)Ordered By: Wood Braxton on 09-03-2024 Platelet Estimate ADEQUATE [facility] Potassium (Unsp spec) [Mass/ Vol]Ordered By: Wood Braxton on 09-03-2024 Potassium [Moles/Vol] 4.1 mmol/L 3.3-5.1 [facility] Potassium measurement (mass/ volume)Ordered By: Wood Braxton on 09-03-2024 Potassium (Unsp spec) [Mass/Vol] 4.1 mmol/L 3.3-5.1 [facility] RBC Auto (Bld) [#/Vol]Ordere d By: Wood Braxton on 09-03-2024 RBC (Bld) [#/Vol] 3.40 10*6/uL Low 4.6-6.2 [facility] Serum creatinine measurement (mass/volume)Ordered By: Wood Braxton on 09-03-2024 Creatinine [Mass/Vol] 0.80 mg/dL 0.70-1.20 [facility] Serum glucose measurement (m ass/volume)Ordered By: Wood Braxton on 09-03-2024 Glucose [Mass/Vol] 148 mg/dL High 70-[address] [facility] Serum or plasma calcium shweta urement (mass/volume)Ordered By: Wood Braxton on 09-03-2024 Calcium [Mass/Vol] 8.7 mg/dL 7.6-11.[address] [facility] Serum or plasma urea nitroge n measurement (mass/volume)Ordered By: Wood Braxton on 09-03-2024 Urea nitrogen [Mass/Vol] 21 mg/dL High 4-19 [facility] Serum phosphorus measurement Ordered By: Wood Braxton on 09-03-2024 Phosphorus Level 3.2 mg/dL 2.7-4.5 [facility] Sodium levelOrdered By: Jack Braxton on 09-03-2024 Sodium [Moles/Vol] 136 mmol/L 133-[address] [facility] Strep pneumoniae Antig(UR,CS F)on 09-03-2024 STPAG Normal [facility] Comment on above: Performed By: #### M 300.4600, M300.4500 ####[facility] [address] [place], [address] White blood cell (WBC) count Ordered By: Wood Braxton on 09-03-2024 WBC (Bld) [#/Vol] 5.2 10*3/uL 4.4-11.[address] [facility] 12 Lead EKGon 09-02-2024 12 Lead EKG Normal [facility] Bedside Glucoseon 09-02-2024 FINGERSTICK GLU 112 mg/dL High 74-106 [facility] Comment on above: Result Comment: MARIUM GEMENT OF PATIENT CARE PER NURSING PROTOCOL Performed By: #### L 501.080 ####[facility] [address] [place], [address] FINGERSTICK GLU 188 mg/dL High 74-106 [facility] Comment on above: Result Comment: MARIUM GEMENT OF PATIENT CARE PER NURSING PROTOCOL Performed By: #### L 501.080 ####[facility] [address] [place], [address] FINGERSTICK GLU 77 mg/dL Normal 74-106 [facility] Comment on above: Result Comment: MARIUM GEMENT OF PATIENT CARE PER NURSING PROTOCOL Performed By: #### L 501.080 ####[facility] [address] [place], [address] FINGERSTICK GLU 162 mg/dL High 74-106 [facility] Comment on above: Result Comment: MARIUM GEMENT OF PATIENT CARE PER NURSING PROTOCOL Performed By: #### L 501.080 ####[facility] [address] [place], [address] FINGERSTICK GLU 201 mg/dL High 74-106 [facility] Comment on above: Result Comment: MARIUM GEMENT OF PATIENT CARE PER NURSING PROTOCOL Performed By: #### L 501.080 ####[facility] [address] [place], [address] Bilirubin, totalOrdered By: Shonda Gaston on 09-02-2024 Bilirubin [Mass/Vol] 0.55 mg/dL 0.00-1.30 [facility] CBC W/Diff, Automatedon Absolute Lymph 1.26 X10 3/uL Normal 0.83-4.51 [facility] Comment on above: Performed By: #### L 500.4050, L100.0100 ####[facility] [address] [place], [address] Absolute Neut 2.8 X10 3/uL Normal 2.0-7.7 [facility] Comment on above: Performed By: #### L 500.4050, L100.0100 ####[facility] [address] [place], [address] Basophils/100 WBC (Bld) 0.4 % Normal 0-1 [facility] Comment on above: Performed By: #### L 500.4050, L100.0100 ####[facility] [address] [place], [address] Eosinophils/100 WBC (Bld) 1.5 % Normal 0-5 [facility] Comment on above: Performed By: #### L 500.4050, L100.0100 ####[facility] [address] [place], [address] Erythrocyte distribution width (RBC) [Ratio] 14.0 % Normal 11.6-14.6 [facility] Comment on above: Performed By: #### L 500.4050, L100.0100 ####[facility] [address] [place], [address] Hematocrit (Bld) [Volume fraction] 33.8 % Low 40-54 [facility] Comment on above: Performed By: #### L 500.4050, L100.0100 ####[facility] [address] [place], [address] Hemoglobin (Bld) [Mass/Vol] 11.2 g/dL Low 13.0-16.5 [facility] Comment on above: Performed By: #### L 500.4050, L100.0100 ####[facility] [address] [place], [address] IG% 0.400 Normal 0.0-0.9 [facility] Comment on above: Result Comment: IG% - Immature Granulocytes (promyelocytes, myelocytes andmetamyelocytes) > 1% indicates that a LEFT SHIFT is Present. Performed By: #### L 500.4050, L100.0100 ####[facility] [address] [place], [address] Lymphocytes/100 WBC (Bld) 26.8 % Normal 19-41 [facility] Comment on above: Performed By: #### L 500.4050, L100.0100 ####[facility] [address] [place], [address] MCH (RBC) [Entitic mass] 31.3 pg Normal 27.0-32.0 [facility] Comment on above: Performed By: #### L 500.4050, L100.0100 ####[facility] [address] [place], [address] MCHC (RBC) [Mass/Vol] 33.1 g/dL Normal 32-36 [facility] Comment on above: Performed By: #### L 500.4050, L100.0100 ####[facility] [address] [place], [address] MCV (RBC) [Entitic vol] 94.4 fL High 80-94 [facility] Comment on above: Performed By: #### L 500.4050, L100.0100 ####[facility] [address] [place], [address] Monocytes/100 WBC (Bld) 10.8 % High 0-10 [facility] Comment on above: Performed By: #### L 500.4050, L100.0100 ####[facility] [address] [place], [address] Neutrophils/100 WBC (Bld) 60.1 % Normal 47-70 [facility] Comment on above: Performed By: #### L 500.4050, L100.0100 ####[facility] [address] [place], [address] Nucleated RBC (Bld) [#/Vol] 0 10*3/uL Normal 0-5 [facility] Comment on above: Performed By: #### L 500.4050, L100.0100 ####[facility] [address] [place], [address] Platelet mean volume (Bld) [Entitic vol] 13.3 fL High 6.2-12.0 [facility] Comment on above: Performed By: #### L 500.4050, L100.0100 ####[facility] [address] [place], [address] Platelets (Bld) [#/Vol] 159 10*3/uL Normal 150-450 [facility] Comment on above: Performed By: #### L 500.4050, L100.0100 ####[facility] [address] [place], [address] RBC (Bld) [#/Vol] 3.58 10*6/uL Low 4.6-6.2 [facility] Comment on above: Performed By: #### L 500.4050, L100.0100 ####[facility] [address] [place], [address] RDW SD 48.8 fl High 35.1-43.9 [facility] Comment on above: Performed By: #### L 500.4050, L100.0100 ####[facility] [address] [place], [address] WBC (Bld) [#/Vol] 4.7 10*3/uL Normal 4.4-11.[address] [facility] Comment on above: Performed By: #### L 500.4050, L100.0100 ####[facility] [address] [place], [address] Chest without Contraston Chest without Contrast Normal [facility] Comprehensive Metabolic Prof ilon 09-02-2024 Albumin [Mass/Vol] 3.4 g/dL Normal 3.4-4.[address] [facility] Comment on above: Performed By: #### L 500.4050, L100.0100 ####[facility] [address] [place], [address] Albumin/Globulin [Mass ratio] 0.9 {ratio} Normal 0.9-2.4 [facility] Comment on above: Performed By: #### L 500.4050, L100.0100 ####[facility] [address] [place], [address] ALK PHOS 117 U/L Normal 40-129 [facility] Comment on above: Performed By: #### L 500.4050, L100.0100 ####[facility] [address] [place], [address] ALT [Catalytic activity/Vol] 13 U/L Normal <=46 [facility] Comment on above: Performed By: #### L 500.4050, L100.0100 ####[facility] [address] [place], [address] AST [Catalytic activity/Vol] 21 U/L Normal <=37 [facility] Comment on above: Result Comment: Hemo lysis present, Results??could be affected.?? Performed By: #### L 500.4050, L100.0100 ####[facility] [address] [place], [address] Bilirubin [Mass/Vol] 0.55 mg/dL Normal 0.00-1.30 [facility] Comment on above: Performed By: #### L 500.4050, L100.0100 ####[facility] [address] [place], [address] BUN/CRE 26.4 RATIO High 10-20 [facility] Comment on above: Performed By: #### L 500.4050, L100.0100 ####[facility] [address] [place], [address] Calcium [Mass/Vol] 8.6 mg/dL Normal 7.6-11.[address] [facility] Comment on above: Performed By: #### L 500.4050, L100.0100 ####[facility] [address] [place], [address] Chloride [Moles/Vol] 103 mmol/L Normal 98-108 [facility] Comment on above: Performed By: #### L 500.4050, L100.0100 ####[facility] [address] [place], [address] CO2 [Moles/Vol] 20.1 mmol/L Low 21.0-32.0 [facility] Comment on above: Performed By: #### L 500.4050, L100.0100 ####[facility] [address] [place], [address] Creatinine [Mass/Vol] 0.73 mg/dL Normal 0.70-1.20 [facility] Comment on above: Performed By: #### L 500.4050, L100.0100 ####[facility] [address] [place], [address] ECRCL 104.33 ml/min Normal 50-250 [facility] Comment on above: Performed By: #### L 500.4050, L100.0100 ####[facility] [address] [place], [address] GAP 11 Normal 5-15 [facility] Comment on above: Performed By: #### L 500.4050, L100.0100 ####[facility] [address] [place], [address] GFR/1.73 sq M.predicted among non-blacks MDRD (S/P/Bld) [Vol rate/Area] 94 mL/min/{1.73_m2} Normal >60 [facility] Comment on above: Result Comment: mL/m in/1.73m2 CKD-EPI Creatinine Equation (2020) Performed By: #### L 500.4050, L100.0100 ####[facility] [address] [place], [address] Globulin (S) [Mass/Vol] 3.9 g/dL Normal 2.2-4.2 [facility] Comment on above: Performed By: #### L 500.4050, L100.0100 ####[facility] [address] [place], [address] Glucose [Mass/Vol] 154 mg/dL High 70-[address] [facility] Comment on above: Performed By: #### L 500.4050, L100.0100 ####[facility] [address] [place], [address] Potassium [Moles/Vol] 4.0 mmol/L Normal 3.3-5.1 [facility] Comment on above: Result Comment: Hemo lysis present, Results??could be affected.?? Performed By: #### L 500.4050, L100.0100 ####[facility] [address] [place], [address] Sodium [Moles/Vol] 134 mmol/L Normal 133-[address] [facility] Comment on above: Performed By: #### L 500.4050, L100.0100 ####[facility] [address] [place], [address] T PROT 7.3 g/dL Normal 5.9-8.4 [facility] Comment on above: Performed By: #### L 500.4050, L100.0100 ####[facility] [address] [place], [address] Urea nitrogen [Mass/Vol] 19 mg/dL Normal 4-19 [facility] Comment on above: Performed By: #### L 500.4050, L100.0100 ####[facility] [address] [place], [address] L. pneumophila Ag Ql (U)Orde red By: Shonda Gaston on 09-02-2024 Legionella Antigen [facility] L499.0043on 09-02-2024 Trop T High Sen 21 ng/L Normal <=22 [facility] Comment on above: Performed By: #### L 499.0043 ####[facility] [address] [place], [address] L503.7505on 09-02-2024 Natriuretic peptide B (Bld) [Mass/Vol] 1097 pg/mL Normal <=1800 [facility] Comment on above: Result Comment: Hear t Failure Unlikely: < 300 pg/mLHeart Failure Likely< 50 Years: > 450 pg/mL50-75 Years: > 900 pg/mL>75 Years: > 1800 pg/mL Performed By: #### L 503.7504 ####[facility] [address] [place], [place], [address] L509.7001on 09-02-2024 Procalcitonin < 0.02 Normal <=0.10 [facility] Comment on above: Order Comment: Comme [...] of the patient. Performed By: #### L 501.5202, [id number] ####[facility] [address] [place], [place], [address] Laboratory - Chemistry and C hemistry - challengeOrdered By: Shonda Gaston on 09-02-2024 AST [Catalytic activity/Vol] 21 U/L <38 [facility] Comment on above: Hemolysis present, R esults could be affected. Laboratory - Chemistry and C hemistry - challengeOrdered By: Wood Braxton on 09-02-2024 Natriuretic peptide B (Bld) [Mass/Vol] 1097 pg/mL <1800 [facility] Comment on above: Heart Failure Unlike ly: < 300 pg/mLHeart Failure Likely< 50 Years: > 450 pg/mL50-75 Years: > 900 pg/mL>75 Years: > 1800 pg/mL Magnesiumon 09-02-2024 Magnesium [Mass/Vol] 1.9 mg/dL Normal 1.5-2.2 [facility] Comment on above: Order Comment: Comme nts: may add to ED labs Performed By: #### L 501.5200, L509.7001 ####[facility] [address] [place], [place], [address] No Panel InformationOrdered By: Shonda Gaston on 09-02-2024 21 U/L <38 [facility] No Panel InformationOrdered By: Wood Braxton on 09-02-2024 1097 pg/mL <1800 [facility] RESPIRATORY PANEL MOLECULARo n 09-02-2024 RP PANEL Normal [facility] Comment on above: Performed By: #### M 100.638 ####[facility] [address] [facility] [address] [place], [place], [id number] Serum globulin measurementOr dered By: Shonda Gaston on 09-02-2024 Globulin (S) [Mass/Vol] 3.9 g/dL 2.2-4.2 [facility] Serum or plasma alanine grace otransferase (ALT) measurementOrdered By: Shonda Gaston on 09-02-2024 ALT [Catalytic activity/Vol] 13 U/L <47 [facility] Serum or plasma albumin shweta urement (mass/volume)Ordered By: Shonda Gaston on 09-02-2024 Albumin [Mass/Vol] 3.4 g/dL 3.4-4.[address] [facility] Serum or plasma albumin/glob ulin mass ratioOrdered By: Shonda Gaston 09-02-2024 Albumin/Globulin [Mass ratio] 0.9 {ratio} 0.9-2.4 [facility] Serum or plasma alkaline gibson sphatase measurementOrdered By: Shonda Gaston on 09-02-2024 ALP [Catalytic activity/Vol] 117 U/L 40-129 [facility] Streptococcus pneumoniae ant igen assayOrdered By: Shonda Gaston on 09-02-2024 Streptococcus pneumoniae Antigen (M [facility] Total proteinOrdered By: Kimberlee Gaston on 09-02-2024 Protein [Mass/Vol] 7.3 g/dL 5.9-8.[address] [facility] Urine Legionella pneumophila antigen detectionOrdered By: Shonda Gaston on 09-02-2024 L. pneumophila Ag Ql (U) [facility] 12 Lead EKGon 09-01-2024 12 Lead EKG Normal [facility] Abdomen Single View (Portabl e)on 09-01-2024 Abdomen Single View (Portable) Normal [facility] Absolute neutrophil countOrd ered By: Jessi Calloway on 09-01-2024 Neutrophils (Bld) [#/Vol] 3.8 10*3/uL 2.0-7.7 [facility] Anion gap in Serum or Plasma Ordered By: Jessi Calloway on 09-01-2024 Anion gap [Moles/Vol] 12 mmol/L 5-15 [facility] BUN/creatinine ratioOrdered By: Jessi Calloway on 09-01-2024 Urea nitrogen/Creatinine [Mass ratio] 25.9 mg/mg High 10-20 [facility] Basic Metabolic Profile (BMP )on 09-01-2024 BUN/CRE 25.9 RATIO High 10- [facility] Comment on above: Performed By: #### L 501.4021, L501.2450, L500.2500, L100.0100 ####[facility] [address] [place], [address] Calcium [Mass/Vol] 9.2 mg/dL Normal 7.6-11.[address] [facility] Comment on above: Performed By: #### L 501.4021, L501.2450, L500.2500, L100.0100 ####[facility] [address] [place], [address] Chloride [Moles/Vol] 102 mmol/L Normal 98-108 [facility] Comment on above: Performed By: #### L 501.4021, L501.2450, L500.2500, L100.0100 ####[facility] [address] [place], [address] CO2 [Moles/Vol] 22.6 mmol/L Normal 21.0-32.0 [facility] Comment on above: Performed By: #### L 501.4021, L501.2450, L500.2500, L100.0100 ####[facility] [address] [place], [address] Creatinine [Mass/Vol] 0.88 mg/dL Normal 0.70-1.20 [facility] Comment on above: Performed By: #### L 501.4021, L501.2450, L500.2500, L100.0100 ####[facility] [address] [place], [address] ECRCL 95.25 ml/min Normal 50-250 [facility] Comment on above: Performed By: #### L 501.4021, L501.2450, L500.2500, L100.0100 ####[facility] [address] [place], [address] GAP 12 Normal 5-15 [facility] Comment on above: Performed By: #### L 501.4021, L501.2450, L500.2500, L100.0100 ####[facility] [address] [place], [address] GFR/1.73 sq M.predicted among non-blacks MDRD (S/P/Bld) [Vol rate/Area] 89 mL/min/{1.73_m2} Normal >60 [facility] Comment on above: Result Comment: mL/m in/1.73m2 CKD-EPI Creatinine Equation (2020) Performed By: #### L 501.4021, L501.2450, L500.2500, L100.0100 ####[facility] [address] [place], [address] Glucose [Mass/Vol] 165 mg/dL High 70-[address] [facility] Comment on above: Performed By: #### L 501.4021, L501.2450, L500.2500, L100.0100 ####[facility] [address] [place], [address] Potassium [Moles/Vol] 4.4 mmol/L Normal 3.3-5.1 [facility] Comment on above: Performed By: #### L 501.4021, L501.2450, L500.2500, L100.0100 ####[facility] [address] [place], [address] Sodium [Moles/Vol] 136 mmol/L Normal 133-[address] [facility] Comment on above: Performed By: #### L 501.4021, L501.2450, L500.2500, L100.0100 ####[facility] [address] [place], [address] Urea nitrogen [Mass/Vol] 23 mg/dL High 4-19 [facility] Comment on above: Performed By: #### L 501.4021, L501.2450, L500.2500, L100.0100 ####[facility] [address] [place], [address] Basophil percentageOrdered B y: Jessi Calloway on 09-01-2024 Basophils/100 WBC (Bld) 0.4 % 0-1 [facility] CBC W/Diff, Automatedon Absolute Lymph 2.05 X10 3/uL Normal 0.83-4.51 [facility] Comment on above: Performed By: #### L 501.4021, L501.2450, L500.2500, L100.0100 ####[facility] [address] [place], [address] Absolute Neut 3.8 X10 3/uL Normal 2.0-7.7 [facility] Comment on above: Performed By: #### L 501.4021, L501.2450, L500.2500, L100.0100 ####[facility] [address] [place], [address] Basophils/100 WBC (Bld) 0.4 % Normal 0-1 [facility] Comment on above: Performed By: #### L 501.4021, L501.2450, L500.2500, L100.0100 ####[facility] [address] [place], [address] Eosinophils/100 WBC (Bld) 1.9 % Normal 0-5 [facility] Comment on above: Performed By: #### L 501.4021, L501.2450, L500.2500, L100.0100 ####[facility] [address] [place], [address] Erythrocyte distribution width (RBC) [Ratio] 14.2 % Normal 11.6-14.6 [facility] Comment on above: Performed By: #### L 501.4021, L501.2450, L500.2500, L100.0100 ####[facility] [address] [place], [address] Hematocrit (Bld) [Volume fraction] 35.0 % Low 40-54 [facility] Comment on above: Performed By: #### L 501.4021, L501.2450, L500.2500, L100.0100 ####[facility] [address] [place], [address] Hemoglobin (Bld) [Mass/Vol] 11.4 g/dL Low 13.0-16.5 [facility] Comment on above: Performed By: #### L 501.4021, L501.2450, L500.2500, L100.0100 ####[facility] [address] [place], [address] IG% 0.700 Normal 0.0-0.9 [facility] Comment on above: Result Comment: IG% - Immature Granulocytes (promyelocytes, myelocytes andmetamyelocytes) > 1% indicates that a LEFT SHIFT is Present. Performed By: #### L 501.4021, L501.2450, L500.2500, L100.0100 ####[facility] [address] [place], [address] Lymphocytes/100 WBC (Bld) 30.1 % Normal 19-41 [facility] Comment on above: Performed By: #### L 501.4021, L501.2450, L500.2500, L100.0100 ####[facility] [address] [place], [address] MCH (RBC) [Entitic mass] 30.9 pg Normal 27.0-32.0 [facility] Comment on above: Performed By: #### L 501.4021, L501.2450, L500.2500, L100.0100 ####[facility] [address] [place], [address] MCHC (RBC) [Mass/Vol] 32.6 g/dL Normal 32-36 [facility] Comment on above: Performed By: #### L 501.4021, L501.2450, L500.2500, L100.0100 ####[facility] [address] [place], [address] MCV (RBC) [Entitic vol] 94.9 fL High 80-94 [facility] Comment on above: Performed By: #### L 501.4021, L501.2450, L500.2500, L100.0100 ####[facility] [address] [place], [address] Monocytes/100 WBC (Bld) 10.7 % High 0-10 [facility] Comment on above: Performed By: #### L 501.4021, L501.2450, L500.2500, L100.0100 ####[facility] [address] [place], [address] Neutrophils/100 WBC (Bld) 56.2 % Normal 47-70 [facility] Comment on above: Performed By: #### L 501.4021, L501.2450, L500.2500, L100.0100 ####[facility] [address] [place], [address] Nucleated RBC (Bld) [#/Vol] 0 10*3/uL Normal 0-5 [facility] Comment on above: Performed By: #### L 501.4021, L501.2450, L500.2500, L100.0100 ####[facility] [address] [place], [address] Platelet mean volume (Bld) [Entitic vol] 12.8 fL High 6.2-12.0 [facility] Comment on above: Performed By: #### L 501.4021, L501.2450, L500.2500, L100.0100 ####[facility] [address] [place], [address] Platelets (Bld) [#/Vol] 131 10*3/uL Low 150-450 [facility] Comment on above: Performed By: #### L 501.4021, L501.2450, L500.2500, L100.0100 ####[facility] [address] [place], [address] RBC (Bld) [#/Vol] 3.69 10*6/uL Low 4.6-6.2 [facility] Comment on above: Performed By: #### L 501.4021, L501.2450, L500.2500, L100.0100 ####[facility] [address] [place], [address] RDW SD 49.3 fl High 35.1-43.9 [facility] Comment on above: Performed By: #### L 501.4021, L501.2450, L500.2500, L100.0100 ####[facility] [address] [place], [address] WBC (Bld) [#/Vol] 6.8 10*3/uL Normal 4.4-11.[address] [facility] Comment on above: Performed By: #### L 501.4021, L501.2450, L500.2500, L100.0100 ####[facility] [address] [place], [address] Carbon dioxide, total [Moles /volume] in Central venous bloodOrdered By: Jessi Calloway on 09-01-2024 CO2 [Moles/Vol] 22.6 mmol/L 21.0-32.0 [facility] Cardiology Visit Reporton Cardiology Visit Report Normal [facility] Chest PA and Lateralon 09-01 Chest PA and Lateral Normal [facility] Chloride assayOrdered By: Oscar Calloway on 09-01-2024 Chloride [Moles/Vol] 102 mmol/L 98-108 [facility] Emergency Department Summary on 09-01-2024 Emergency Department Summary Normal [facility] Eosinophil percentageOrdered By: Jessi Calloway on 09-01-2024 Eosinophils/100 WBC (Bld) 1.9 % 0-5 [facility] Erythrocyte distribution wid th (RBC) [Ratio]Ordered By: Jessi Calloway on 09-01-2024 Erythrocyte distribution width (RBC) [Entitic vol] 49.3 fL High 35.1-43.9 [facility] Erythrocyte distribution wid th ratioOrdered By: Jessi Calloway on 09-01-2024 Erythrocyte distribution width (RBC) [Ratio] 14.2 % 11.6-14.6 [facility] Estimation of creatinine dennys aranceOrdered By: Jessi Calloway on 09-01-2024 Estimated Creatinine Clearance Calc 95.25 ml/min 50-250 [facility] GFR/1.73 sq M.predicted mikayla g non-blacks MDRD (S/P/Bld) [Vol rate/Area]Ordered By: Jessi Calloway on 09-01-2024 Estimated GFR (MDRD) Non-Af Amer 89 >60 [facility] Comment on above: mL/min/1.73m2 CKD-EP I Creatinine Equation (2020) H AND P Exam - Hospitaliston 09-01-2024 H&P Exam - Hospitalist Normal [facility] Hematocrit Auto (Bld) [Volum e fraction]Ordered By: Jessi Calloway on 09-01-2024 Hematocrit (Bld) [Volume fraction] 35.0 % Low 40-54 [facility] Hemoglobin measurementOrdere d By: Jessi Calloway on 09-01-2024 Hemoglobin (Bld) [Mass/Vol] 11.4 g/dL Low 13.0-16.5 [facility] Immature granulocytes/100 WB C Auto (Bld)Ordered By: Jessi Calloway on 09-01-2024 Immature granulocytes/100 WBC (Bld) 0.700 % 0.0-0.9 [facility] Comment on above: IG% - Immature Granu locytes (promyelocytes, myelocytes and metamyelocytes) > 1% indicates that a LEFT SHIFT is Present. L499.0042on 09-01-2024 Trop T High Sen 20 ng/L Normal <=22 [facility] Comment on above: Performed By: #### L 499.0042 ####[facility] [address] [place], [address] L501.4021on 09-01-2024 Trop T High Sen 23 ng/L High <=22 [facility] Comment on above: Performed By: #### L 501.4021, L501.2450, L500.2500, L100.0100 ####[facility] [address] [place], [address] Lipaseon 09-01-2024 Lipase [Catalytic activity/Vol] 21 U/L Normal 13-75 [facility] Comment on above: Result Comment: Marcelle fritz note:LIPASE revised reference range effective 22.New Lipase methodology. Expected to produce lower valuesthan the previous assay method.NEW Reference Range: 13 - 75 U/L Performed By: #### L 501.4021, L501.2450, L500.2500, L100.0100 ####[facility] [address] [place], [address] Lipase measurementOrdered By : Jessi Calloway on 09-01-2024 Lipase [Catalytic activity/Vol] 21 U/L 13-75 [facility] Comment on above: Please note:LIPASE r evised reference range effective 22. New Lipase methodology. Expected to produce lower values than the previous assay method. NEW Reference Range: 13 - 75 U/L Lymphocytes Auto (Unsp spec) [#/Vol]Ordered By: Jessi Calloway on 09-01-2024 Lymphocytes (Bld) [#/Vol] 2.05 10*3/uL 0.83-4.51 [facility] Lymphocytes/100 WBC Auto (Un sp spec)Ordered By: Jessi Calloway on 09-01-2024 Lymphocytes/100 WBC (Bld) 30.1 % 19-41 [facility] MCV (mean corpuscular volume ) determinationOrdered By: Jessi Calloway on 09-01-2024 MCV (RBC) [Entitic vol] 94.9 fL High 80-94 [facility] Mean corpuscular hemoglobin (MCH) determinationOrdered By: Jessi Calloway on 09-01-2024 MCH (RBC) [Entitic mass] 30.9 pg 27.0-32.0 [facility] Mean corpuscular hemoglobin concentration (MCHC) determinationOrdered By: Jessi Calloway on 09-01-2024 MCHC (RBC) [Mass/Vol] 32.6 g/dL 32-36 [facility] Mean platelet volume determi nationOrdered By: Jessi Calloway on 09-01-2024 Platelet mean volume (Bld) [Entitic vol] 12.8 fL High 6.2-12.0 [facility] Monocyte percentageOrdered B y: Jessi Calloway on 09-01-2024 Monocytes/100 WBC (Bld) 10.7 % High 0-10 [facility] Neutrophil percentageOrdered By: Jessikendall Calloway on 09-01-2024 Neutrophils/100 WBC (Bld) 56.2 % 47-70 [facility] No Panel InformationOrdered By: Shonda Gaston on 09-01-2024 Procalcitonin < 0.02 ng/mL <0.11 [facility] Comment on above: Interpretation:<0.10 -0.25 ng/mL: Antibiotic [...] of the patient. < 0.02 ng/mL <0.11 [facility] No Panel InformationOrdered By: Jessi Calloway on 09-01-2024 Troponin T High Sensitivity 23 ng/L High <22 [facility] 23 ng/L High <22 [facility] Nucleated red blood cell per centageOrdered By: Jessi Calloway on 09-01-2024 Nucleated RBC/100 WBC (Bld) [Ratio] 0 % 0-5 [facility] Platelet countOrdered By: Oscar Calloway on 09-01-2024 Platelets (Bld) [#/Vol] 131 10*3/uL Low 150-450 [facility] Potassium (Unsp spec) [Mass/ Vol]Ordered By: Jessi Calloway on 09-01-2024 Potassium [Moles/Vol] 4.4 mmol/L 3.3-5.1 [facility] RBC Auto (Bld) [#/Vol]Ordere d By: Jessi Calloway on 09-01-2024 RBC (Bld) [#/Vol] 3.69 10*6/uL Low 4.6-6.2 [facility] Respiratory pathogens DNA an d RNA panel ZOE+probe (Resp)Ordered By: Shonda Gaston on 09-01-2024 Respiratory Panel (PCR) [facility] Respiratory pathogens detect ion panel by molecular detection methodOrdered By: Shonda Alek on 09-01-2024 Respiratory pathogens DNA and RNA panel ZOE+probe (Resp) [facility] Serum creatinine measurement (mass/volume)Ordered By: Jessi Calloway on 09-01-2024 Creatinine [Mass/Vol] 0.88 mg/dL 0.70-1.20 [facility] Serum glucose measurement (m ass/volume)Ordered By: Jessi Calloway on 09-01-2024 Glucose [Mass/Vol] 165 mg/dL High 70-[address] [facility] Serum or plasma calcium shweta urement (mass/volume)Ordered By: Jessi Calloway on 09-01-2024 Calcium [Mass/Vol] 9.2 mg/dL 7.6-11.[address] [facility] Serum or plasma urea nitroge n measurement (mass/volume)Ordered By: Jessi Calloway on 09-01-2024 Urea nitrogen [Mass/Vol] 23 mg/dL High 4-19 [facility] Sodium levelOrdered By: Jessi Calloway on 09-01-2024 Sodium [Moles/Vol] 136 mmol/L 133-[address] [facility] Troponin T.cardiac High sens itivity method [Mass/Vol]Ordered By: Jessi Calloway on 09-01-2024 Troponin T High Sensitivity 4 Hour 21 ng/L <22 [facility] Troponin T High Sensitivity 2 Hour 20 ng/L <22 [facility] Troponin T.cardiac [Mass/vol ume] in Serum or Plasma by High sensitivity methodOrdered By: Jessi Calloway on 09-01-2024 Troponin T.cardiac High sensitivity method [Mass/Vol] 21 ng/L <22 [facility] Troponin T.cardiac High sensitivity method [Mass/Vol] 20 ng/L <22 [facility] White blood cell (WBC) count Ordered By: Jessi Calloway on 09-01-2024 WBC (Bld) [#/Vol] 6.8 10*3/uL 4.4-11.[address] [facility] Pulmonary Visit Reporton Pulmonary Visit Report Normal [facility] Platelet countOrdered By: Nitin Toure on 07-17-2024 Platelets (Bld) [#/Vol] 210 10*3/uL 150-450 [facility] Bilirubin directOrdered By: Danni Davis on 07-10-2024 Bilirubin.direct [Mass/Vol] 0.42 mg/dL High 0.00-0.30 [facility] Bilirubin, totalOrdered By: Danni Davis on 07-10-2024 Bilirubin [Mass/Vol] 1.00 mg/dL 0.20-1.00 [facility] Comment on above: For patients on eltr ombopag therapy, use of Dimension [place] TBIL is not recommended. High density lipoprotein (HD L) measurementOrdered By: Danni Davis on 02-07-2025 Cholesterol in HDL [Mass/Vol] 58 mg/dL >40 [facility] Comment on above: The drugs N-Acetylcy steine and Metamizole may falsely depress this assay. Reference Range HDL <40 mg/dL Low HDL Cholesterol HDL >or= 60 mg/dL High HDL Cholesterol High density lipoprotein (HDL) measurement 58 mg/dL >40 [facility] Laboratory - Chemistry and C hemistry - challengeOrdered By: Danni Davis on 07-10-2024 AST [Catalytic activity/Vol] 23 U/L 15-37 [facility] Lipid Profileon 07-10-2024 Cholesterol [Mass/Vol] 116 mg/dL Normal 200 [facility] Comment on above: Result Comment: <200 mg/dL Desirable 200-240 mg/dL Borderline >240 mg/dL High Risk Performed By: #### L 500.3400, L500.4100 ####[facility] [address] [place], [address] Cholesterol in HDL [Mass/Vol] 58 mg/dL Normal [facility] Comment on above: Result Comment: The drugs N-Acetylcysteine and Metamizole may falselydepress this assay. Reference Range HDL <40 mg/dL Low HDL Cholesterol HDL >or= 60 mg/dL High HDL Cholesterol Performed By: #### L 500.3400, L500.4100 ####[facility] [address] [place], [address] Cholesterol in LDL [Mass/Vol] 42 mg/dL Normal 0-130 [facility] Comment on above: Performed By: #### L 500.3400, L500.4100 ####[facility] [address] [place], [address] Cholesterol in VLDL [Mass/Vol] 16 mg/dL Normal 5-40 [facility] Comment on above: Performed By: #### L 500.3400, L500.4100 ####[facility] [address] [place], [address] Triglyceride [Mass/Vol] 82 mg/dL Normal [facility] Comment on above: Result Comment: The drugs N-Acetylcysteine and Metamizole may falselydepress this assay.Serum Triglycerides Reference Interval Normal <150 mg/dL Borderline high 150 - 199 mg/dL High 200 - 499 mg/dL Very High > or = 500 mg/dL Performed By: #### L 500.3400, L500.4100 ####[facility] [address] [place], [address] Liver Profileon 07-10-2024 Albumin [Mass/Vol] 2.7 g/dL Low 3.2-5.[address] [facility] Comment on above: Performed By: #### L 500.3400, L500.4100 ####[facility] [address] [place], [address] ALK P 153 U/L High 45-117 [facility] Comment on above: Performed By: #### L 500.3400, L500.4100 ####[facility] [address] [place], [address] ALT [Catalytic activity/Vol] 18 U/L Normal 16-61 [facility] Comment on above: Performed By: #### L 500.3400, L500.4100 ####[facility] [address] [place], [address] AST [Catalytic activity/Vol] 23 U/L Normal 15-37 [facility] Comment on above: Performed By: #### L 500.3400, L500.4100 ####[facility] [address] [place], [address] Bilirubin [Mass/Vol] 1.00 mg/dL Normal 0.20-1.00 [facility] Comment on above: Result Comment: For patients on eltrombopag therapy, use of [place] TBIL is not recommended. Performed By: #### L 500.3400, L500.4100 ####[facility] [address] [place], [address] Bilirubin.direct [Mass/Vol] 0.42 mg/dL High 0.00-0.30 [facility] Comment on above: Performed By: #### L 500.3400, L500.4100 ####[facility] [address] [place], [address] Globulin (S) [Mass/Vol] 4.7 g/dL High 2.2-4.2 [facility] Comment on above: Performed By: #### L 500.3400, L500.4100 ####[facility] [address] [place], [address] T PROT 7.4 g/dL Normal 6.4-8.2 [facility] Comment on above: Performed By: #### L 500.3400, L500.4100 ####[facility] [address] [place], [address] Low density lipoprotein (LDL ) cholesterol measurementOrdered By: Danni Davis on 07-10-2024 Cholesterol in LDL [Mass/Vol] 42 mg/dL 0-130 [facility] Low density lipoprotein (LDL) cholesterol measurement 42 mg/dL 0-130 [facility] No Panel InformationOrdered By: Danni Davis on 07-10-2024 23 U/L 15-37 [facility] Serum globulin measurementOr dered By: Danni Davis on 07-10-2024 Globulin (S) [Mass/Vol] 4.7 g/dL High 2.2-4.2 [facility] Serum or plasma alanine grace otransferase (ALT) measurementOrdered By: Danni Davis on 07-10-2024 ALT [Catalytic activity/Vol] 18 U/L 16-61 [facility] Serum or plasma albumin shweta urement (mass/volume)Ordered By: Danni Davis on 07-10-2024 Albumin [Mass/Vol] 2.7 g/dL Low 3.2-5.[address] [facility] Serum or plasma alkaline gibson sphatase measurementOrdered By: Danni Davis on 07-10-2024 ALP [Catalytic activity/Vol] 153 U/L High 45-117 [facility] Serum or plasma cholesterol measurement (mass/volume)Ordered By: Danni Davis on 07-10-2024 Cholesterol [Mass/Vol] 116 mg/dL <200 [facility] Comment on above: <200 mg/dL Desirable 200-240 mg/dL Borderline >240 mg/dL High Risk Total proteinOrdered By: Luca Davis on 07-10-2024 Protein [Mass/Vol] 7.4 g/dL 6.4-8.[address] [facility] Triglycerides measurementOrd ered By: Danni Davis on 07-10-2024 Triglyceride [Mass/Vol] 82 mg/dL <199 [facility] Comment on above: The drugs N-Acetylcy steine and Metamizole may falsely depress this assay.Serum Triglycerides Reference Interval Normal <150 mg/dL Borderline high 150 - 199 mg/dL High 200 - 499 mg/dL Very High > or = 500 mg/dL Very low density lipoprotein (VLDL) cholesterol measurementOrdered By: Danni Davis on 07-10-2024 Very low density lipoprotein (VLDL) cholesterol measurement 16 mg/dL 5-40 [facility] VLDL Cholesterol 16 mg/dL 5-40 [facility] 12 Lead EKGon 07-07-2024 12 Lead EKG Normal [facility] Absolute lymphocyte countOrd ered By: Dhiraj Carlton on 07-07-2024 Lymphocytes Auto (Unsp spec) [#/Vol] 1.48 10*3/uL 0.83-4.51 [facility] Absolute neutrophil countOrd ered By: Dhiraj Carlton on 07-07-2024 Neutrophils (Bld) [#/Vol] 3.8 10*3/uL 2.0-7.7 [facility] Activated partial thrombopla stin time (aPTT) in platelet poor plasma by coagulation aOrdered By: Dhiraj Carlton on 07-07-2024 aPTT Coag (PPP) [Time] 39.3 s High 24.1-36.2 [facility] Automated lymphocyte count a s percentage of total leukocytesOrdered By: Dhiraj Carlton on 07-07-2024 Lymphocytes/100 WBC Auto (Unsp spec) 24.6 % 19-41 [facility] Basic Metabolic Profile (BMP )on 07-07-2024 BUN/CRE 18.6 RATIO Normal 10-20 [facility] Comment on above: Performed By: #### L 100.0100, L500.3400, L501.2450, L503.6005, L300.4310, L501.5200, L300.3900, L500.2500 ####[facility] [address] [place], [address] CA,Total 8.9 mg/dL Normal 8.5-10.1 [facility] Comment on above: Performed By: #### L 100.0100, L500.3400, L501.2450, L503.6005, L300.4310, L501.5200, L300.3900, L500.2500 ####[facility] [address] [place], [address] Chloride [Moles/Vol] 102 mmol/L Normal 98-107 [facility] Comment on above: Performed By: #### L 100.0100, L500.3400, L501.2450, L503.6005, L300.4310, L501.5200, L300.3900, L500.2500 ####[facility] [address] [place], [address] CO2 [Moles/Vol] 28.0 mmol/L Normal 21.0-32.0 [facility] Comment on above: Performed By: #### L 100.0100, L500.3400, L501.2450, L503.6005, L300.4310, L501.5200, L300.3900, L500.2500 ####[facility] [address] [place], [address] Creatinine [Mass/Vol] 1.02 mg/dL Normal 0.70-1.30 [facility] Comment on above: Result Comment: The validity of the calculated GFR GFRAA in patients over70 years has not been determined. Clinical correlation isessential. Performed By: #### L 100.0100, L500.3400, L501.2450, L503.6005, L300.4310, L501.5200, L300.3900, L500.2500 ####[facility] [address] [place], [address] ECRCL 83.71 ml/min Normal [facility] Comment on above: Performed By: #### L 100.0100, L500.3400, L501.2450, L503.6005, L300.4310, L501.5200, L300.3900, L500.2500 ####[facility] [address] [place], [address] EST GFR - AA 91 mL/min Normal >60 [facility] Comment on above: Result Comment: Afri can Russian GFR Calc Performed By: #### L 100.0100, L500.3400, L501.2450, L503.6005, L300.4310, L501.5200, L300.3900, L500.2500 ####[facility] [address] [place], [address] GAP 8 Normal 5-15 [facility] Comment on above: Performed By: #### L 100.0100, L500.3400, L501.2450, L503.6005, L300.4310, L501.5200, L300.3900, L500.2500 ####[facility] [address] [place], [address] GFR/1.73 sq M.predicted among non-blacks MDRD (S/P/Bld) [Vol rate/Area] 75 mL/min/{1.73_m2} Normal >60 [facility] Comment on above: Result Comment: Non- GFR Calc Performed By: #### L 100.0100, L500.3400, L501.2450, L503.6005, L300.4310, L501.5200, L300.3900, L500.2500 ####[facility] [address] [place], [address] Glucose [Mass/Vol] 137 mg/dL High 74-[address] [facility] Comment on above: Result Comment: Fast ing Glucose result greater than or equal to 126 mg/dLsuggests DIABETES MELLITUS per A.D.A. criteria. Performed By: #### L 100.0100, L500.3400, L501.2450, L503.6005, L300.4310, L501.5200, L300.3900, L500.2500 ####[facility] [address] [place], [address] Potassium [Moles/Vol] 3.8 mmol/L Normal 3.5-5.1 [facility] Comment on above: Performed By: #### L 100.0100, L500.3400, L501.2450, L503.6005, L300.4310, L501.5200, L300.3900, L500.2500 ####[facility] [address] [place], [address] Sodium [Moles/Vol] 138 mmol/L Normal 136-[address] [facility] Comment on above: Performed By: #### L 100.0100, L500.3400, L501.2450, L503.6005, L300.4310, L501.5200, L300.3900, L500.2500 ####[facility] [address] [place], [address] Urea nitrogen [Mass/Vol] 19 mg/dL High 7-18 [facility] Comment on above: Performed By: #### L 100.0100, L500.3400, L501.2450, L503.6005, L300.4310, L501.5200, L300.3900, L500.2500 ####[facility] [address] [place], [address] Basophil percentageOrdered B y: Dhiraj Carlton on 07-07-2024 Basophils/100 WBC (Bld) 0.7 % 0-1 [facility] Bilirubin directOrdered By: Dhiraj Carlton on 07-07-2024 Bilirubin.direct [Mass/Vol] 0.43 mg/dL High 0.00-0.30 [facility] Bilirubin, totalOrdered By: Dhiraj Carlton on 07-07-2024 Bilirubin [Mass/Vol] 1.00 mg/dL 0.20-1.00 [facility] Comment on above: For patients on eltr ombopag therapy, use of Dimension [place] TBIL is not recommended. Blood urea nitrogen (BUN)/cr eatinine ratioOrdered By: Dhiraj Carlton on 07-07-2024 Urea nitrogen/Creatinine [Mass ratio] 18.6 mg/mg 10-20 [facility] CBC W/Diff, Automatedon Absolute Lymph 1.48 X10 3/uL Normal 0.83-4.51 [facility] Comment on above: Performed By: #### L 100.0100, L500.3400, L501.2450, L503.6005, L300.4310, L501.5200, L300.3900, L500.2500 ####[facility] [address] [place], [address] Absolute Neut 3.8 X10 3/uL Normal 2.0-7.7 [facility] Comment on above: Performed By: #### L 100.0100, L500.3400, L501.2450, L503.6005, L300.4310, L501.5200, L300.3900, L500.2500 ####[facility] [address] [place], [address] Basophils/100 WBC (Bld) 0.7 % Normal 0-1 [facility] Comment on above: Performed By: #### L 100.0100, L500.3400, L501.2450, L503.6005, L300.4310, L501.5200, L300.3900, L500.2500 ####[facility] [address] [facility] [address] Eosinophils/100 WBC (Bld) 2.0 % Normal 0-5 [facility] Comment on above: Performed By: #### L 100.0100, L500.3400, L501.2450, L503.6005, L300.4310, L501.5200, L300.3900, L500.2500 ####[facility] [address] [place], [address] Erythrocyte distribution width (RBC) [Ratio] 16.0 % High 11.6-14.6 [facility] Comment on above: Performed By: #### L 100.0100, L500.3400, L501.2450, L503.6005, L300.4310, L501.5200, L300.3900, L500.2500 ####[facility] [address] [place], [address] Hematocrit (Bld) [Volume fraction] 34.3 % Low 40-54 [facility] Comment on above: Performed By: #### L 100.0100, L500.3400, L501.2450, L503.6005, L300.4310, L501.5200, L300.3900, L500.2500 ####[facility] [address] [place], [address] Hemoglobin (Bld) [Mass/Vol] 11.1 g/dL Low 13.0-16.5 [facility] Comment on above: Performed By: #### L 100.0100, L500.3400, L501.2450, L503.6005, L300.4310, L501.5200, L300.3900, L500.2500 ####[facility] [address] [place], [address] IG% 1.500 High 0.0-0.9 [facility] Comment on above: Result Comment: IG% - Immature Granulocytes (promyelocytes, myelocytes andmetamyelocytes) > 1% indicates that a LEFT SHIFT is Present. Performed By: #### L 100.0100, L500.3400, L501.2450, L503.6005, L300.4310, L501.5200, L300.3900, L500.2500 ####[facility] [address] [place], [address] Lymphocytes/100 WBC (Bld) 24.6 % Normal 19-41 [facility] Comment on above: Performed By: #### L 100.0100, L500.3400, L501.2450, L503.6005, L300.4310, L501.5200, L300.3900, L500.2500 ####[facility] [address] [place], [address] MCH (RBC) [Entitic mass] 31.5 pg Normal 27.0-32.0 [facility] Comment on above: Performed By: #### L 100.0100, L500.3400, L501.2450, L503.6005, L300.4310, L501.5200, L300.3900, L500.2500 ####[facility] [address] [place], [address] MCHC (RBC) [Mass/Vol] 32.4 g/dL Normal 32-36 [facility] Comment on above: Performed By: #### L 100.0100, L500.3400, L501.2450, L503.6005, L300.4310, L501.5200, L300.3900, L500.2500 ####[facility] [address] [place], [address] MCV (RBC) [Entitic vol] 97.4 fL High 80-94 [facility] Comment on above: Performed By: #### L 100.0100, L500.3400, L501.2450, L503.6005, L300.4310, L501.5200, L300.3900, L500.2500 ####[facility] [address] [place], [address] Monocytes/100 WBC (Bld) 8.5 % Normal 0-10 [facility] Comment on above: Performed By: #### L 100.0100, L500.3400, L501.2450, L503.6005, L300.4310, L501.5200, L300.3900, L500.2500 ####[facility] [address] [place], [address] Neutrophils/100 WBC (Bld) 62.7 % Normal 47-70 [facility] Comment on above: Performed By: #### L 100.0100, L500.3400, L501.2450, L503.6005, L300.4310, L501.5200, L300.3900, L500.2500 ####[facility] [address] [place], [address] Nucleated RBC (Bld) [#/Vol] 0.5 10*3/uL Normal 0-5 [facility] Comment on above: Performed By: #### L 100.0100, L500.3400, L501.2450, L503.6005, L300.4310, L501.5200, L300.3900, L500.2500 ####[facility] [address] [place], [address] Platelet mean volume (Bld) [Entitic vol] 13.6 fL High 6.2-12.0 [facility] Comment on above: Performed By: #### L 100.0100, L500.3400, L501.2450, L503.6005, L300.4310, L501.5200, L300.3900, L500.2500 ####[facility] [address] [place], [address] Platelets (Bld) [#/Vol] 226 10*3/uL Normal 150-450 [facility] Comment on above: Performed By: #### L 100.0100, L500.3400, L501.2450, L503.6005, L300.4310, L501.5200, L300.3900, L500.2500 ####[facility] [address] [place], [address] RBC (Bld) [#/Vol] 3.52 10*6/uL Low 4.6-6.2 [facility] Comment on above: Performed By: #### L 100.0100, L500.3400, L501.2450, L503.6005, L300.4310, L501.5200, L300.3900, L500.2500 ####[facility] [address] [place], [address] RDW SD 55.0 fl High 35.1-43.9 [facility] Comment on above: Performed By: #### L 100.0100, L500.3400, L501.2450, L503.6005, L300.4310, L501.5200, L300.3900, L500.2500 ####[facility] [address] [place], [address] WBC (Bld) [#/Vol] 6.0 10*3/uL Normal 4.4-11.[address] [facility] Comment on above: Performed By: #### L 100.0100, L500.3400, L501.2450, L503.6005, L300.4310, L501.5200, L300.3900, L500.2500 ####[facility] [address] [place], [address] CTA Chst, Abd, Pel W and/or WOon 07-07-2024 CTA Chst, Abd, Pel W and/or WO Normal [facility] Carbon dioxide measurementOr dered By: Dhiraj Carlton on 07-07-2024 CO2 [Moles/Vol] 28.0 mmol/L 21.0-32.0 [facility] Chloride measurementOrdered By: Dhiraj Carlton on 07-07-2024 Chloride [Moles/Vol] 102 mmol/L 98-107 [facility] Emergency Department Summary on 07-07-2024 Emergency Department Summary Normal [facility] Eosinophil percentageOrdered By: Dhiraj Carlton on 07-07-2024 Eosinophils/100 WBC (Bld) 2.0 % 0-5 [facility] Erythrocyte distribution wid th (RBC) [Ratio]Ordered By: Dhiraj Carlton on 07-07-2024 Erythrocyte distribution width (RBC) [Entitic vol] 55.0 fL High 35.1-43.9 [facility] [facility] Erythrocyte distribution wid th ratioOrdered By: Dhiraj Carlton on 07-07-2024 Erythrocyte distribution width (RBC) [Ratio] 16.0 % High 11.6-14.6 [facility] Erythrocyte distribution wid th standard deviationOrdered By: Dhiraj Carlton on 07-07-2024 Erythrocyte distribution width (RBC) [Ratio] 55.0 fl High 35.1-43.9 [facility] Estimated glomerular filtrat ion rate (GFR) AmericanOrdered By: Dhiraj Carlton on 07-07-2024 Estimated GFR (MDRD) Amer 91 mL/min >60 [facility] Comment on above: GFR Calc Estimation of creatinine dennys aranceOrdered By: Dhiraj Carlton on 07-07-2024 Estimated Creatinine Clearance Calc 83.71 ml/min [facility] Glomerular filtration rate ( GFR) estimationOrdered By: Dhiraj Carlton on 07-07-2024 Estimated GFR (MDRD) Non-Af Amer 75 mL/min >60 [facility] Comment on above: Non- GFR Calc GFR/1.73 sq M.predicted among non-blacks MDRD (S/P/Bld) [Vol rate/Area] 75 mL/min/{1.73_m2} >60 [facility] Glucose measurementOrdered B y: Dhiraj Carlton on 07-07-2024 Glucose [Mass/Vol] 137 mg/dL High 74-[address] [facility] Comment on above: Fasting Glucose resu lt greater than or equal to 126 mg/dL suggests DIABETES MELLITUS per A.D.A. criteria. Hematocrit Auto (Bld) [Volum e fraction]Ordered By: Dhiraj Carlton on 07-07-2024 Hematocrit (Bld) [Volume fraction] 34.3 % Low 40-54 [facility] Hemoglobin measurementOrdere d By: Dhiraj Carlton on 07-07-2024 Hemoglobin (Bld) [Mass/Vol] 11.1 g/dL Low 13.0-16.5 [facility] Immature granulocytes/100 WB C Auto (Bld)Ordered By: Dhiraj Carlton on 07-07-2024 Immature granulocytes/100 WBC (Bld) 1.500 % High 0.0-0.9 [facility] Comment on above: IG% - Immature Granu locytes (promyelocytes, myelocytes and metamyelocytes) > 1% indicates that a LEFT SHIFT is Present. International normalized rat io (INR) calculationOrdered By: Dhiraj Carlton on 07-07-2024 INR Coag (Bld) [Relative time] 1.9 {INR} [facility] Laboratory - Chemistry and C hemistry - challengeOrdered By: Dhiraj Carlton on 07-07-2024 AST [Catalytic activity/Vol] 19 U/L 15-37 [facility] Lactic acid measurementOrder ed By: Dhiraj Carlton on 07-07-2024 Lactate [Moles/Vol] 2.0 mmol/L Normal 0.4-1.9 [facility] Comment on above: Critical Result(s) C alled at: 02:57:31 07/07/2024 by: ROSEANNA KUHN TO MG BLUE. Results read back by same. Order Comment: Y Result Comment: Crit ical Result(s) Called at: 02:57:31 07/07/2024 by:ROSEANNA KUHN TO GM BLUE. Results read back by same. Performed By: #### L 100.0100, L500.3400, L501.2450, L503.6005, L300.4310, L501.5200, L300.3900, L500.2500 ####[facility] [address] [place], [address] Lipaseon 07-07-2024 Lipase [Catalytic activity/Vol] 21 U/L Normal 13-75 [facility] Comment on above: Result Comment: Marcelle fritz note:LIPASE revised reference range effective 22.New Lipase methodology. Expected to produce lower valuesthan the previous assay method.NEW Reference Range: 13 - 75 U/L Performed By: #### L 100.0100, L500.3400, L501.2450, L503.6005, L300.4310, L501.5200, L300.3900, L500.2500 ####[facility] [address] [place], [place], [phone]) Lipase measurementOrdered By : Dhiraj Carlton on 07-07-2024 Lipase [Catalytic activity/Vol] 21 U/L 13-75 [facility] Comment on above: Please note:LIPASE r evised reference range effective 22. New Lipase methodology. Expected to produce lower values than the previous assay method. NEW Reference Range: 13 - 75 U/L Liver Profileon 07-07-2024 Albumin [Mass/Vol] 2.7 g/dL Low 3.2-5.[address] [facility] Comment on above: Performed By: #### L 100.0100, L500.3400, L501.2450, L503.6005, L300.4310, L501.5200, L300.3900, L500.2500 ####[facility] [address] [place], [place], [phone] ALK P 133 U/L High 45-117 [facility] Comment on above: Performed By: #### L 100.0100, L500.3400, L501.2450, L503.6005, L300.4310, L501.5200, L300.3900, L500.2500 ####[facility] [address] [place], [place], [phone] ALT [Catalytic activity/Vol] 19 U/L Normal 16-61 [facility] Comment on above: Performed By: #### L 100.0100, L500.3400, L501.2450, L503.6005, L300.4310, L501.5200, L300.3900, L500.2500 ####[facility] [address] [place], [address] AST [Catalytic activity/Vol] 19 U/L Normal 15-37 [facility] Comment on above: Performed By: #### L 100.0100, L500.3400, L501.2450, L503.6005, L300.4310, L501.5200, L300.3900, L500.2500 ####[facility] [address] [place], [address] Bilirubin [Mass/Vol] 1.00 mg/dL Normal 0.20-1.00 [facility] Comment on above: Result Comment: For patients on eltrombopag therapy, use of Dimension [place] TBIL is not recommended. Performed By: #### L 100.0100, L500.3400, L501.2450, L503.6005, L300.4310, L501.5200, L300.3900, L500.2500 ####[facility] [address] [place], [address] Bilirubin.direct [Mass/Vol] 0.43 mg/dL High 0.00-0.30 [facility] Comment on above: Performed By: #### L 100.0100, L500.3400, L501.2450, L503.6005, L300.4310, L501.5200, L300.3900, L500.2500 ####[facility] [address] [place], [address] Globulin (S) [Mass/Vol] 5.0 g/dL High 2.2-4.2 [facility] Comment on above: Performed By: #### L 100.0100, L500.3400, L501.2450, L503.6005, L300.4310, L501.5200, L300.3900, L500.2500 ####[facility] [address] [place], [address] T PROT 7.7 g/dL Normal 6.4-8.2 [facility] Comment on above: Performed By: #### L 100.0100, L500.3400, L501.2450, L503.6005, L300.4310, L501.5200, L300.3900, L500.2500 ####[facility] [address] [place], [address] Lymphocytes Auto (Unsp spec) [#/Vol]Ordered By: Dhiarj Carlton on 07-07-2024 Lymphocytes (Bld) [#/Vol] 1.48 10*3/uL 0.83-4.51 [facility] Lymphocytes/100 WBC Auto (Un sp spec)Ordered By: Dhiraj Carlton on 07-07-2024 Lymphocytes/100 WBC (Bld) 24.6 % 19-41 [facility] MCV (mean corpuscular volume ) determinationOrdered By: Dhiraj Carlton on 07-07-2024 MCV (RBC) [Entitic vol] 97.4 fL High 80-94 [facility] Magnesiumon 07-07-2024 Magnesium [Mass/Vol] 1.9 mg/dL Normal 1.6-2.6 [facility] Comment on above: Performed By: #### L 100.0100, L500.3400, L501.2450, L503.6005, L300.4310, L501.5200, L300.3900, L500.2500 ####[facility] [address] [place], [address] Magnesium measurementOrdered By: Dhiraj Carlton on 07-07-2024 Magnesium [Mass/Vol] 1.9 mg/dL 1.6-2.6 [facility] Mean corpuscular hemoglobin (MCH) determinationOrdered By: Dhiraj Carlton on 07-07-2024 MCH (RBC) [Entitic mass] 31.5 pg 27.0-32.0 [facility] Mean corpuscular hemoglobin concentration (MCHC) determinationOrdered By: Dhiraj Carlton on 07-07-2024 MCHC (RBC) [Mass/Vol] 32.4 g/dL 32-36 [facility] Mean platelet volume determi nationOrdered By: Dhiraj Carlton on 07-07-2024 Platelet mean volume (Bld) [Entitic vol] 13.6 fL High 6.2-12.0 [facility] Monocyte percentageOrdered B y: Dhiraj Carlton on 07-07-2024 Monocytes/100 WBC (Bld) 8.5 % 0-10 [facility] Neutrophil percentageOrdered By: Dhiraj Carlton on 07-07-2024 Neutrophils/100 WBC (Bld) 62.7 % 47-70 [facility] No Panel InformationOrdered By: Dhiraj Carlton on 07-07-2024 19 U/L 15-37 [facility] Nucleated red blood cell per centageOrdered By: Dhiraj Carlton on 07-07-2024 Nucleated RBC/100 WBC (Bld) [Ratio] 0.5 % 0-5 [facility] Partial Thromboplast Timeon 07-07-2024 aPTT Coag (Bld) [Time] 39.3 s High 24.1-36.2 [facility] Comment on above: Performed By: #### L 100.0100, L500.3400, L501.2450, L503.6005, L300.4310, L501.5200, L300.3900, L500.2500 ####[facility] [address] [place], [place], [phone] Platelet countOrdered By: Marissa Carlton on 07-07-2024 Platelets (Bld) [#/Vol] 226 10*3/uL 150-450 [facility] Potassium measurementOrdered By: Dhiraj Carlton on 07-07-2024 Potassium [Moles/Vol] 3.8 mmol/L 3.5-5.1 [facility] Prothrombin Time w/INRon INR Coag (PPP) [Relative time] 1.9 {INR} Normal [facility] Comment on above: Performed By: #### L 100.0100, L500.3400, L501.2450, L503.6005, L300.4310, L501.5200, L300.3900, L500.2500 ####[facility] [address] [place], [place], [phone] PT Coag (PPP) [Time] 22.1 s High 11.7-14.9 [facility] Comment on above: Performed By: #### L 100.0100, L500.3400, L501.2450, L503.6005, L300.4310, L501.5200, L300.3900, L500.2500 ####[facility] [address] [place], [place], [phone] Prothrombin timeOrdered By: Dhiraj Carlton on 07-07-2024 PT Coag (PPP) [Time] 22.1 s High 11.7-14.9 [facility] RBC Auto (Bld) [#/Vol]Ordere d By: Dhiraj Carlton on 07-07-2024 RBC (Bld) [#/Vol] 3.52 10*6/uL Low 4.6-6.2 [facility] Serum anion gap measurementO rdered By: Dhiraj Carlton on 07-07-2024 Anion gap [Moles/Vol] 8 mmol/L 5-15 [facility] Serum globulin measurementOr dered By: Dhiraj Carlton on 07-07-2024 Globulin (S) [Mass/Vol] 5.0 g/dL High 2.2-4.2 [facility] Serum or plasma alanine grace otransferase (ALT) measurementOrdered By: Dhiraj Carlton on 07-07-2024 ALT [Catalytic activity/Vol] 19 U/L 16-61 [facility] Serum or plasma albumin shweta urement (mass/volume)Ordered By: Dhiraj Carlton on 07-07-2024 Albumin [Mass/Vol] 2.7 g/dL Low 3.2-5.[address] [facility] Serum or plasma alkaline gibson sphatase measurementOrdered By: Dhiraj Carlton on 07-07-2024 ALP [Catalytic activity/Vol] 133 U/L High 45-117 [facility] Serum or plasma calcium shweta urement (mass/volume)Ordered By: Dhiraj Carlton on 07-07-2024 Calcium [Mass/Vol] 8.9 mg/dL 8.5-10.[address] [facility] Serum or plasma creatinine m easurement (mass/volume)Ordered By: Dhiraj Carlton on 07-07-2024 Creatinine [Mass/Vol] 1.02 mg/dL 0.70-1.30 [facility] Comment on above: The validity of the calculated GFR & GFRAA in patients over 70 years has not been determined. Clinical correlation is essential. Serum or plasma urea nitroge n measurement (mass/volume)Ordered By: Dhiraj Carlton on 07-07-2024 Urea nitrogen [Mass/Vol] 19 mg/dL High 7-18 [facility] Sodium levelOrdered By: Kobe Carlton on 07-07-2024 Sodium [Moles/Vol] 138 mmol/L 136-[address] [facility] Total proteinOrdered By: Orlando Carlton on 07-07-2024 Protein [Mass/Vol] 7.7 g/dL 6.4-8.[address] [facility] White blood cell (WBC) count Ordered By: Dhiraj Carlton on 07-07-2024 WBC (Bld) [#/Vol] 6.0 10*3/uL 4.4-11.[address] [facility] aPTT Coag (PPP) [Time]Ordere d By: Dhiraj Carlton on 07-07-2024 aPTT Coag (Bld) [Time] 39.3 s High 24.1-36.2 [facility] .Auto Diffon 07-01-2024 Basophil, Absolute 0.0 10 3/mcL Normal 0.0-0.3 [facility] Comment on above: Performed By: #### A PTT #### [address] [address] Basophils/100 WBC (Bld) 0.3 % Normal 0.0-2.5 [facility] Comment on above: Performed By: #### A PTT #### [address] [address] Eosinophil, Absolute 0.1 10 3/mcL Normal 0.0-0.7 [facility] Comment on above: Performed By: #### A PTT #### [address] [address] Eosinophils/100 WBC (Bld) 1.5 % Normal 0.0-6.0 [facility] Comment on above: Performed By: #### A PTT #### [address] [address] Lymphocyte, Absolute 1.2 10 3/mcL Normal 0.9-4.3 [facility] Comment on above: Performed By: #### A PTT #### [address] [address] Lymphocytes/100 WBC (Bld) 12.5 % Low 20.0-40.0 [facility] Comment on above: Performed By: #### A PTT #### [address] [address] Monocyte, Absolute 0.9 10 3/mcL Normal 0.1-1.4 [facility] Comment on above: Performed By: #### A PTT #### [address] [address] Monocytes/100 WBC (Bld) 9.7 % Normal 2.0-13.0 [facility] Comment on above: Performed By: #### A PTT #### [address] [address] Neutrophils/100 WBC (Bld) 76.0 % High 50.0-75.0 [facility] Comment on above: Performed By: #### A PTT #### [address] [address] .GFRon 07-01-2024 GFR >60 Normal [facility] Comment on above: Result Comment: GFR [...] meters Performed By: #### A PTT #### [place] [address] GFR Non- >60 Normal [facility] Comment on above: Result Comment: GFR [...] meters Performed By: #### A PTT #### [place] [address] .Morphon 07-01-2024 Ovalocytes 1+ [facility] Comment on above: Performed By: #### G FR, BMP, MG #### [place] [address] Platelet Clumps Moderate [facility] Comment on above: Performed By: #### G FR, BMP, MG #### [place] [address] Platelet Estimate Normal [facility] Comment on above: Performed By: #### G FR, BMP, MG #### [place] [address] Poik 1+ [facility] Comment on above: Performed By: #### G FR, BMP, MG #### [place] [address] .NEUABSon 07-01-2024 Neutrophil, Absolute 7.0 10 3/mcL Normal 2.3-8.1 [facility] Comment on above: Performed By: #### A PTT #### [address] [address] BMPon 07-01-2024 BUN/Creatinine Ratio 21.7 ratio Normal 10.0-22.0 [facility] Comment on above: Performed By: #### A PTT #### [address] [address] Calcium [Mass/Vol] 8.8 mg/dL Normal 8.7-10.4 [facility] Comment on above: Performed By: #### A PTT #### [address] [address] Chloride [Moles/Vol] 103 mmol/L Normal 98-110 [facility] Comment on above: Performed By: #### A PTT #### [address] [address] CO2 [Moles/Vol] 29 mmol/L Normal 22-32 [facility] Comment on above: Performed By: #### A PTT #### [address] [address] Creatinine [Mass/Vol] 0.83 mg/dL Normal 0.60-1.40 [facility] Comment on above: Result Comment: Test ing performed on Classical Connection analyzer using enzymatic creatinine methodology. Performed By: #### A PTT #### [address] [address] Electrolyte Balance 7.0 mEq/L Normal 4.0-15.0 [facility] Comment on above: Performed By: #### A PTT #### [address] [address] Glucose [Mass/Vol] 187 mg/dL High 82-115 [facility] Comment on above: Performed By: #### A PTT #### [address] [address] Potassium [Moles/Vol] 4.0 mmol/L Normal 3.5-5.0 [facility] Comment on above: Performed By: #### A PTT #### [address] [address] Sodium [Moles/Vol] 139 mmol/L Normal 136-145 [facility] Comment on above: Performed By: #### A PTT #### [place] [address] Urea nitrogen [Mass/Vol] 18.0 mg/dL Normal 8.0-22.0 [facility] Comment on above: Performed By: #### A PTT #### [place] [id number] CBCon 07-01-2024 Platelets (Bld) [#/Vol] 4 10*3/uL Normal 150-450 [facility] Comment on above: Result Comment: Plat elets appear adequate on smear; however, due to clumping an accurate count is not possible. Performed By: #### G FR, BMP, MG #### [place] [address] Platelet mean volume (Bld) [Entitic vol] 11.3 fL High 6.4-10.5 [facility] Comment on above: Performed By: #### G FR, BMP, MG #### [place] [address] Erythrocyte distribution width (RBC) [Ratio] 15.3 % Normal 11.5-15.5 [facility] Comment on above: Performed By: #### Lamberto FR, BMP, MG #### [place] [address] Hematocrit (Bld) [Volume fraction] 31.2 % Low 40.0-52.0 [facility] Comment on above: Performed By: #### G FR, BMP, MG #### [place] [address] Hgb 10.5 G/dL Low 13.0-17.5 [facility] Comment on above: Performed By: #### G FR, BMP, MG #### [place] [id number] MCH (RBC) [Entitic mass] 31.8 pg Normal 27.0-33.0 [facility] Comment on above: Performed By: #### G FR, BMP, MG #### [place] [id number] [place] [address] MCHC 33.6 G/dL Normal 32.0-36.0 [facility] Comment on above: Performed By: #### G FR, BMP, MG #### [facility] [address] [place] [address] MCV (RBC) [Entitic vol] 94.6 fL Normal 81.0-100.0 [facility] Comment on above: Performed By: #### G FR, BMP, MG #### [facility] [address] [place] [address] RBC 3.29 10 6/mcL Low 4.50-6.00 [facility] Comment on above: Performed By: #### G FR, BMP, MG #### [address] [address] WBC 9.2 10 3/mcL Normal 4.5-10.8 [facility] Comment on above: Performed By: #### G FR, BMP, MG #### [address] [address] LABORATORYOrdered By: Ann Grimaldo on 07-01-2024 Glucose [Mass/Vol] 278 mg/dL High 82 - 115 mg/dL [facility] Work Phone: LABORATORYOrdered By: Coral Kim on 07-01-2024 Glucose [Mass/Vol] 234 mg/dL High 82 - 115 mg/dL [facility] Work Phone: LABORATORYOrdered By: SYSTEM SYSTEM on [...] above: Interpretive Data: T esting performed on Ichiba CH analyzer using enzymatic creatinine methodology. Electrolyte [...] (S/P/Bld) [Vol rate/Area] ml/min/1.73sqm Invalid Interpretation Code [facility] Comment on above: Interpretive Data: GFR Population [...] 07-01-2024 Magnesium [Mass/Vol] 1.8 mg/dL Normal 1.6-2.4 [facility] Comment on above: Performed By: #### A PTT #### [place] [address] XR CHEST 2 VIEWSon XR CHEST 2 [...] 07/01/2024 9:40:30 AM Ordering Provider: MORA SORIA [facility] .GFRon 06-30-2024 GFR Non- >60 [facility] Comment on above: Result Comment: GFR [...] By: #### G FR, BMP, MG #### [address] [address] GFR >60 [facility] Comment on above: Result Comment: GFR [...] By: #### G FR, BMP, MG #### [address] [address] .Manual Diffon 06-30-2024 Bands 1.0 % Normal 0.0-5.0 [facility] Comment on above: Performed By: #### G FR, BMP, MG #### [address] [address] Basophil %, Manual 0.0 % Normal 0.0-2.5 [facility] Comment on above: Performed By: #### G FR, BMP, MG #### [address] [address] Basophil, Abs Manual 0.0 10 3/mcL Normal 0.0-0.3 [facility] Comment on above: Performed By: #### G FR, BMP, MG #### [address] [address] Eosinophil %, Manual 1.0 % Normal 0.0-6.0 [facility] Comment on above: Performed By: #### G FR, BMP, MG #### [address] [address] Eosinophil, Abs Manual 0.1 10 3/mcL Normal 0.0-0.7 [facility] Comment on above: Performed By: #### G FR, BMP, MG #### [address] [address] Lymphocyte %, Manual 11.0 % Low 20.0-40.0 [facility] Comment on above: Performed By: #### G FR, BMP, MG #### [address] [address] Lymphocyte, Abs Manual 0.9 10 3/mcL Normal 0.9-4.3 [facility] Comment on above: Performed By: #### G FR, BMP, MG #### [address] [address] Metamyelocyte 1.0 % Normal [facility] Comment on above: Performed By: #### G FR, BMP, MG #### [address] [address] Monocyte %, Manual 5.0 % Normal 2.0-13.0 [facility] Comment on above: Performed By: #### G FR, BMP, MG #### [address] [address] Monocyte, Abs Manual 0.4 10 3/mcL Normal 0.1-1.4 [facility] Comment on above: Performed By: #### G FR, BMP, MG #### [place] [address] Neutrophil %, Manual 81.0 % High 50.0-75.0 [facility] Comment on above: Performed By: #### G FR, BMP, MG #### [place] [id number] Neutrophil, Abs Manual 6.8 10 3/mcL Normal 2.3-8.1 [facility] Comment on above: Performed By: #### G FR, BMP, MG #### [place] [address] Nucleated RBC 1.0 /100 WBC Normal [facility] Comment on above: Performed By: #### G FR, BMP, MG #### [place] [address] .Morphon 06-30-2024 Anisocytosis Ql (Bld) 1+ Normal [facility] Comment on above: Performed By: #### G FR, BMP, MG #### [place] [address] Large Platelets Few [facility] Comment on above: Performed By: #### G FR, BMP, MG #### [place] [phone] Platelet Clumps Few Normal [facility] Comment on above: Performed By: #### G FR, BMP, MG #### [place] [address] Platelet Estimate Normal [facility] Comment on above: Result Comment: Manu al platelet estimate: 200,000-225,000 Performed By: #### G FR, BMP, MG #### [place] [address] APTTon 06-30-2024 aPTT Coag (Bld) [Time] 43.7 s High 25.0-35.0 [facility] Comment on above: Result Comment: For Heparin anticoagulation therapy, the recommended therapeutic range is: 54-77 seconds (APTT Correlation with Anti-Xa therapeutic range of 0.3-0.7 units/ml). PLEASE REFERENCE THE PHARMACY PROTOCOL FOR DOSING. Performed By: #### A PTT #### [address] [address] BMPon 06-30-2024 BUN/Creatinine Ratio 23.8 ratio High 10.0-22.0 [facility] Comment on above: Performed By: #### G FR, BMP, MG #### [address] [address] Calcium [Mass/Vol] 8.8 mg/dL Normal 8.7-10.4 [facility] Comment on above: Performed By: #### G FR, BMP, MG #### [address] [address] Chloride [Moles/Vol] 100 mmol/L Normal 98-110 [facility] Comment on above: Performed By: #### G FR, BMP, MG #### [address] [address] CO2 [Moles/Vol] 29 mmol/L Normal 22-32 [facility] Comment on above: Performed By: #### G FR, BMP, MG #### [address] [address] Creatinine [Mass/Vol] 0.84 mg/dL Normal 0.60-1.40 [facility] Comment on above: Result Comment: Test ing performed on [employer] analyzer using enzymatic creatinine methodology. Performed By: #### G FR, BMP, MG #### [address] [address] Electrolyte Balance 8.0 mEq/L Normal 4.0-15.0 [facility] Comment on above: Performed By: #### G FR, BMP, MG #### [address] [address] Glucose [Mass/Vol] 243 mg/dL High 82-115 [facility] Comment on above: Performed By: #### G FR, BMP, MG #### [address] [address] Potassium [Moles/Vol] 4.2 mmol/L Normal 3.5-5.0 [facility] Comment on above: Performed By: #### G FR, BMP, MG #### [facility] [address] [place] [address] Sodium [Moles/Vol] 137 mmol/L Normal 136-145 [facility] Comment on above: Performed By: #### G FR, BMP, MG #### [facility] [address] [place] [address] Urea nitrogen [Mass/Vol] 20.0 mg/dL Normal 8.0-22.0 [facility] Comment on above: Performed By: #### G FR, BMP, MG #### [facility] [facility] [address] [place] [id number] CBCon 06-30-2024 Platelet See Comment Normal 150-450 [facility] Comment on above: Result Comment: An [...] By: #### G FR, BMP, MG #### [address] [address] Erythrocyte distribution width (RBC) [Ratio] 15.1 % Normal 11.5-15.5 [facility] Comment on above: Performed By: #### G FR, BMP, MG #### [place] [address] Hematocrit (Bld) [Volume fraction] 30.1 % Low 40.0-52.0 [facility] Comment on above: Performed By: #### G FR, BMP, MG #### [place] [address] Hgb 10.5 G/dL Low 13.0-17.5 [facility] Comment on above: Performed By: #### G FR, BMP, MG #### [place] [address] MCH (RBC) [Entitic mass] 32.4 pg Normal 27.0-33.0 [facility] Comment on above: Performed By: #### G FR, BMP, MG #### [place] [address] MCHC 34.8 G/dL Normal 32.0-36.0 [facility] Comment on above: Performed By: #### G FR, BMP, MG #### [place] [address] MCV (RBC) [Entitic vol] 93.1 fL Normal 81.0-100.0 [facility] Comment on above: Performed By: #### G FR, BMP, MG #### [place] [address] Platelet mean volume (Bld) [Entitic vol] 11.1 fL High 6.4-10.5 [facility] Comment on above: Performed By: #### G FR, BMP, MG #### [place] [address] RBC 3.24 10 6/mcL Low 4.50-6.00 [facility] Comment on above: Performed By: #### G FR, BMP, MG #### [place] [address] WBC 8.3 10 3/mcL Normal 4.5-10.8 [facility] Comment on above: Performed By: #### G FR, BMP, MG #### [facility] [address] [place] [address] LABORATORYOrdered By: Jackson Spaulding on 06-30-2024 Blood Glucose Testing Reason Routine (06/30/24 8:33 PM) [facility] Work Phone: Glucose [Mass/Vol] 106 mg/dL Normal 82 - 115 mg/dL [facility] Work Phone: Blood Glucose Testing Reason Routine (06/30/24 5:36 PM) [facility] Work Phone: Blood Glucose Testing Reason Routine (06/30/24 2:02 PM) [facility] Work Phone: LABORATORYOrdered By: SYSTEM SYSTEM on [...] above: Interpretive Data: T esting performed on Classical Connection analyzer using enzymatic creatinine methodology. Electrolyte Balance [...] (S/P/Bld) [Vol rate/Area] ml/min/1.73sqm Invalid Interpretation Code [facility] Comment on above: Interpretive Data: GFR Population [...] (S/P/Bld) [Vol rate/Area] ml/min/1.73sqm Invalid Interpretation Code [facility] Comment on above: Interpretive Data: GFR Population [...] Please contact the hematology department at Ext [phone]. Manual platelet estimate: [phone] [employer] More [...] Please contact the hematology department at Ext [phone]. [employer] More than 900,000 INCREASED [phone],000 [...] 06-30-2024 Magnesium [Mass/Vol] 1.9 mg/dL Normal 1.6-2.4 [facility] Comment on above: Performed By: #### G FR, BMP, MG #### [place] [address] No Panel Informationon 06-30 Legionella Urine Ag Presumptive negative for L. pneumophila serogroup 1 antigen in urine, suggesting no recent or current infection. Legionnaire's disease cannot be ruled out since other serogroups and species may also cause disease. [facility] Work Phone: XR CHEST 1 VIEWon 06-30-2024 [...] 06/30/2024 8:46:51 PM Ordering Provider: ELBA Ayoub [facility] XR CHEST 1 VIEW ORIGINAL EXAMINATION: [...] 06/30/2024 11:26:40 AM Ordering Provider: DHIRAJ Ayoub [facility] .Auto Diffon 06-29-2024 Basophil, Absolute 0.0 10 3/mcL Normal 0.0-0.3 [facility] Comment on above: Performed By: #### A PTT #### [address] [address] Basophils/100 WBC (Bld) 0.3 % Normal 0.0-2.5 [facility] Comment on above: Performed By: #### A PTT #### [address] [address] Eosinophil, Absolute 0.1 10 3/mcL Normal 0.0-0.7 [facility] Comment on above: Performed By: #### A PTT #### [address] [address] Eosinophils/100 WBC (Bld) 1.4 % Normal 0.0-6.0 [facility] Comment on above: Performed By: #### A PTT #### [address] [address] Lymphocyte, Absolute 1.1 10 3/mcL Normal 0.9-4.3 [facility] Comment on above: Performed By: #### A PTT #### [address] [address] Lymphocytes/100 WBC (Bld) 14.7 % Low 20.0-40.0 [facility] Comment on above: Performed By: #### A PTT #### [address] [address] Monocyte, Absolute 0.9 10 3/mcL Normal 0.1-1.4 [facility] Comment on above: Performed By: #### A PTT #### [address] [address] Monocytes/100 WBC (Bld) 12.0 % Normal 2.0-13.0 [facility] Comment on above: Performed By: #### A PTT #### [address] [address] Neutrophils/100 WBC (Bld) 71.6 % Normal 50.0-75.0 [facility] Comment on above: Performed By: #### A PTT #### [address] [address] .GFRon 06-29-2024 GFR Non- >60 [facility] Comment on above: Result Comment: GFR [...] meters Performed By: #### A PTT #### [address] [address] GFR >60 Normal [facility] Comment on above: Result Comment: GFR [...] meters Performed By: #### A PTT #### [address] [address] .NEUABSon 06-29-2024 Neutrophil, Absolute 5.5 10 3/mcL Normal 2.3-8.1 [facility] Comment on above: Performed By: #### A PTT #### [place] [id number] APTTon 06-29-2024 aPTT Coag (Bld) [Time] 30.5 s Normal 25.0-35.0 [facility] Comment on above: Result Comment: For Heparin anticoagulation therapy, the recommended therapeutic range is: 54-77 seconds (APTT Correlation with Anti-Xa therapeutic range of 0.3-0.7 units/ml). PLEASE REFERENCE THE PHARMACY PROTOCOL FOR DOSING. Performed By: #### A PTT #### [place] [id number] aPTT Coag (Bld) [Time] 60.7 s High 25.0-35.0 [facility] Comment on above: Result Comment: For Heparin anticoagulation therapy, the recommended therapeutic range is: 54-77 seconds (APTT Correlation with Anti-Xa therapeutic range of 0.3-0.7 units/ml). PLEASE REFERENCE THE PHARMACY PROTOCOL FOR DOSING. Performed By: #### G FR, BMP, MG #### [address] [address] BMPon 06-29-2024 BUN/Creatinine Ratio 22.1 ratio High 10.0-22.0 [facility] Comment on above: Performed By: #### A PTT #### [address] [address] Calcium [Mass/Vol] 8.7 mg/dL Normal 8.7-10.4 [facility] Comment on above: Performed By: #### A PTT #### [address] [address] Chloride [Moles/Vol] 101 mmol/L Normal 98-110 [facility] Comment on above: Performed By: #### A PTT #### [address] [address] CO2 [Moles/Vol] 30 mmol/L Normal 22-32 [facility] Comment on above: Performed By: #### A PTT #### [address] [address] Creatinine [Mass/Vol] 0.77 mg/dL Normal 0.60-1.40 [facility] Comment on above: Result Comment: Test ing performed on [employer] analyzer using enzymatic creatinine methodology. Performed By: #### A PTT #### [place] [address] Electrolyte Balance 7.0 mEq/L Normal 4.0-15.0 [facility] Comment on above: Performed By: #### A PTT #### [place] [id number] Glucose [Mass/Vol] 235 mg/dL High 82-115 [facility] Comment on above: Performed By: #### A PTT #### [place] [address] Potassium [Moles/Vol] 3.6 mmol/L Normal 3.5-5.0 [facility] Comment on above: Performed By: #### A PTT #### [place] [address] Sodium [Moles/Vol] 138 mmol/L Normal 136-145 [facility] Comment on above: Performed By: #### A PTT #### [place] [address] Urea nitrogen [Mass/Vol] 17.0 mg/dL Normal 8.0-22.0 [facility] Comment on above: Performed By: #### A PTT #### [place] [id number] CBCon 06-29-2024 Erythrocyte distribution width (RBC) [Ratio] 14.9 % Normal 11.5-15.5 [facility] Comment on above: Performed By: #### C BC, BMP, GFR, ADIFF, MG, ANEU #### [place] [id number] Hematocrit (Bld) [Volume fraction] 30.7 % Low 40.0-52.0 [facility] Comment on above: Performed By: #### C BC, BMP, GFR, ADIFF, MG, ANEU #### [place] [id number] Hgb 10.5 G/dL Low 13.0-17.5 [facility] Comment on above: Performed By: #### C BC, BMP, GFR, ADIFF, MG, ANEU #### [place] [address] MCH (RBC) [Entitic mass] 31.9 pg Normal 27.0-33.0 [facility] Comment on above: Performed By: #### C BC, BMP, GFR, ADIFF, MG, ANEU #### [place] [address] MCHC 34.2 G/dL Normal 32.0-36.0 [facility] Comment on above: Performed By: #### C BC, BMP, GFR, ADIFF, MG, ANEU #### [place] [address] MCV (RBC) [Entitic vol] 93.3 fL Normal 81.0-100.0 [facility] Comment on above: Performed By: #### C BC, BMP, GFR, ADIFF, MG, ANEU #### [place] [address] Platelet 92 10 3/mcL Low 150-450 [facility] Comment on above: Performed By: #### C BC, BMP, GFR, ADIFF, MG, ANEU #### [place] [address] Platelet mean volume (Bld) [Entitic vol] 11.5 fL High 6.4-10.5 [facility] Comment on above: Performed By: #### C BC, BMP, GFR, ADIFF, MG, ANEU #### [place] [address] RBC 3.29 10 6/mcL Low 4.50-6.00 [facility] Comment on above: Performed By: #### C BC, BMP, GFR, ADIFF, MG, ANEU #### [place] [address] WBC 7.7 10 3/mcL Normal 4.5-10.8 [facility] Comment on above: Performed By: #### C BC, BMP, GFR, ADIFF, MG, ANEU #### [facility] [address] [place], [place] [address] Culture, Blood (WB)on 2024 CUB Blood cultures x2, f rom two different sites No growth in 5 days. Normal [facility] Comment on above: Performed By: #### M 200.1000, L503.6005 ####[facility] [id number] [place], [address] LABORATORYOrdered By: SYSTEM SYSTEM on 06-29-2024 aPTT [...] above: Interpretive Data: T esting performed on [employer] analyzer using enzymatic creatinine methodology. Electrolyte Balance [...] (S/P/Bld) [Vol rate/Area] ml/min/1.73sqm Invalid Interpretation Code [facility] Comment on above: Interpretive Data: GFR Population [...] (S/P/Bld) [Vol rate/Area] ml/min/1.73sqm Invalid Interpretation Code [facility] Comment on above: Interpretive Data: GFR Population [...] 235 mg/dL High 82 - 115 mg/dL [facility] Hematocrit (Bld) [Volume fraction] 30.7 % Low [...] 06-29-2024 Magnesium [Mass/Vol] 1.8 mg/dL Normal 1.6-2.4 [facility] Comment on above: Performed By: #### A PTT #### [address] [address] .Auto Diffon 06-28-2024 Basophil, Absolute 0.0 10 3/mcL Normal 0.0-0.3 [facility] Comment on above: Performed By: #### G FR, BMP, MG #### [address] [address] Basophils/100 WBC (Bld) 0.3 % Normal 0.0-2.5 [facility] Comment on above: Performed By: #### G FR, BMP, MG #### [address] [address] Eosinophil, Absolute 0.0 10 3/mcL Normal 0.0-0.7 [facility] Comment on above: Performed By: #### G FR, BMP, MG #### [address] [address] Eosinophils/100 WBC (Bld) 0.4 % Normal 0.0-6.0 [facility] Comment on above: Performed By: #### G FR, BMP, MG #### [address] [address] Lymphocyte, Absolute 1.0 10 3/mcL Normal 0.9-4.3 [facility] Comment on above: Performed By: #### G FR, BMP, MG #### [address] [address] Lymphocytes/100 WBC (Bld) 13.6 % Low 20.0-40.0 [facility] Comment on above: Performed By: #### G FR, BMP, MG #### [address] [address] Monocyte, Absolute 0.9 10 3/mcL Normal 0.1-1.4 [facility] Comment on above: Performed By: #### G FR, BMP, MG #### [place] [id number] [place] [address] Monocytes/100 WBC (Bld) 13.2 % High 2.0-13.0 [facility] Comment on above: Performed By: #### G FR, BMP, MG #### [address] [address] Neutrophils/100 WBC (Bld) 72.5 % Normal 50.0-75.0 [facility] Comment on above: Performed By: #### G FR, BMP, MG #### [address] [address] .GFRon 06-28-2024 GFR >60 Normal [facility] Comment on above: Result Comment: GFR [...] By: #### G FR, BMP, MG #### [address] [address] GFR Non- >60 Normal [facility] Comment on above: Result Comment: GFR [...] By: #### G FR, BMP, MG #### [place] [address] .NEUABSon 06-28-2024 Neutrophil, Absolute 5.1 10 3/mcL Normal 2.3-8.1 [facility] Comment on above: Performed By: #### G FR, BMP, MG #### [place] [address] APTTon 06-28-2024 aPTT Coag (Bld) [Time] 60.4 s High 25.0-35.0 [facility] Comment on above: Result Comment: For Heparin anticoagulation therapy, the recommended therapeutic range is: 54-77 seconds (APTT Correlation with Anti-Xa therapeutic range of 0.3-0.7 units/ml). PLEASE REFERENCE THE PHARMACY PROTOCOL FOR DOSING. Performed By: #### G FR, BMP, MG #### [place] [address] aPTT Coag (Bld) [Time] 58.9 s High 25.0-35.0 [facility] Comment on above: Result Comment: For Heparin anticoagulation therapy, the recommended therapeutic range is: 54-77 seconds (APTT Correlation with Anti-Xa therapeutic range of 0.3-0.7 units/ml). PLEASE REFERENCE THE PHARMACY PROTOCOL FOR DOSING. Performed By: #### A PTT #### [place] [address] aPTT Coag (Bld) [Time] 39.8 s High 25.0-35.0 [facility] Comment on above: Result Comment: For Heparin anticoagulation therapy, the recommended therapeutic range is: 54-77 seconds (APTT Correlation with Anti-Xa therapeutic range of 0.3-0.7 units/ml). PLEASE REFERENCE THE PHARMACY PROTOCOL FOR DOSING. Performed By: #### A PTT #### [place] [address] BMPon 06-28-2024 BUN/Creatinine Ratio 25.6 ratio High 10.0-22.0 [facility] Comment on above: Performed By: #### G FR, BMP, MG #### [address] [address] Calcium [Mass/Vol] 8.8 mg/dL Normal 8.7-10.4 [facility] Comment on above: Performed By: #### DAMON CLEARY MG #### [address] [address] Chloride [Moles/Vol] 102 mmol/L Normal 98-110 [facility] Comment on above: Performed By: #### DAMON CLEARY, MG #### [address] [address] CO2 [Moles/Vol] 29 mmol/L Normal 22-32 [facility] Comment on above: Performed By: #### DAMON CLEARY MG #### [address] [address] Creatinine [Mass/Vol] 0.82 mg/dL Normal 0.60-1.40 [facility] Comment on above: Result Comment: Test ing performed on [employer] Connection analyzer using enzymatic creatinine methodology. Performed By: #### DAMON CLEARY, MG #### [address] [address] Electrolyte Balance 7.0 mEq/L Normal 4.0-15.0 [facility] Comment on above: Performed By: #### DAMON CLEARY, MG #### [address] [address] Glucose [Mass/Vol] 277 mg/dL High 82-115 [facility] Comment on above: Performed By: #### DAMON CLEARY, MG #### [address] [address] Potassium [Moles/Vol] 3.7 mmol/L Normal 3.5-5.0 [facility] Comment on above: Performed By: #### DAMON CLEARY, MG #### [address] [address] Sodium [Moles/Vol] 138 mmol/L Normal 136-145 [facility] Comment on above: Performed By: #### DAMON CLEARY, MG #### [address] [address] Urea nitrogen [Mass/Vol] 21.0 mg/dL Normal 8.0-22.0 [facility] Comment on above: Performed By: #### DAMON CLEARY, MG #### [place] [address] CBCon 06-28-2024 Erythrocyte distribution width (RBC) [Ratio] 14.9 % Normal 11.5-15.5 [facility] Comment on above: Performed By: #### Lamberto BARKER BMP, MG #### [place] [address] Hematocrit (Bld) [Volume fraction] 31.8 % Low 40.0-52.0 [facility] Comment on above: Performed By: #### DAMON CLEARY, MG #### [place] [address] Hgb 11.0 G/dL Low 13.0-17.5 [facility] Comment on above: Performed By: #### Lamberto BARKER BMP, MG #### [place] [address] MCH (RBC) [Entitic mass] 32.4 pg Normal 27.0-33.0 [facility] Comment on above: Performed By: #### Lamberto BARKER BMP, MG #### [place] [address] MCHC 34.6 G/dL Normal 32.0-36.0 [facility] Comment on above: Performed By: #### Lamberto BARKER BMP, MG #### [place] [address] MCV (RBC) [Entitic vol] 93.5 fL Normal 81.0-100.0 [facility] Comment on above: Performed By: #### G FR BMP, MG #### [place] [address] Platelet 82 10 3/mcL Low 150-450 [facility] Comment on above: Performed By: #### Lamberto BARKER, BMP, MG #### [place] [address] Platelet mean volume (Bld) [Entitic vol] 10.9 fL High 6.4-10.5 [facility] Comment on above: Performed By: #### G FR, BMP, MG #### [facility] [address] [place] [address] RBC 3.40 10 6/mcL Low 4.50-6.00 [facility] Comment on above: Performed By: #### G FR, BMP, MG #### [facility] [address] [place] [address] WBC 7.1 10 3/mcL Normal 4.5-10.8 [facility] Comment on above: Performed By: #### G FR, BMP, MG #### [facility] [address] [place] [address] LABORATORYOrdered By: SYSTEM SYSTEM on 06-28-2024 aPTT [...] Glucose Interventions Notify physician (06/28/24 7:43 AM) [facility] Work Phone: MGon 06-28-2024 Magnesium [Mass/Vol] 2.1 mg/dL Normal 1.6-2.4 [facility] Comment on above: Performed By: #### G FR, BMP, MG #### [address] [address] .Auto Diffon 06-27-2024 Basophil, Absolute 0.0 10 3/mcL Normal 0.0-0.3 [facility] Comment on above: Performed By: #### G FR, BMP, MG #### [address] [address] Basophils/100 WBC (Bld) 0.3 % Normal 0.0-2.5 [facility] Comment on above: Performed By: #### G FR, BMP, MG #### [address] [address] Eosinophil, Absolute 0.0 10 3/mcL Normal 0.0-0.7 [facility] Comment on above: Performed By: #### G FR, BMP, MG #### [address] [address] Eosinophils/100 WBC (Bld) 0.3 % Normal 0.0-6.0 [facility] Comment on above: Performed By: #### G FR, BMP, MG #### [address] [address] Lymphocyte, Absolute 0.7 10 3/mcL Low 0.9-4.3 [facility] Comment on above: Performed By: #### G FR, BMP, MG #### [address] [address] Lymphocytes/100 WBC (Bld) 6.5 % Low 20.0-40.0 [facility] Comment on above: Performed By: #### G FR, BMP, MG #### [facility] [address] [place] [address] Monocyte, Absolute 1.2 10 3/mcL Normal 0.1-1.4 [facility] Comment on above: Performed By: #### G FR, BMP, MG #### [facility] [address] [place] [address] Monocytes/100 WBC (Bld) 10.8 % Normal 2.0-13.0 [facility] Comment on above: Performed By: #### G FR, BMP, MG #### [facility] [address] [place] [address] Neutrophils/100 WBC (Bld) 82.1 % High 50.0-75.0 [facility] Comment on above: Performed By: #### G FR, BMP, MG #### [address] [address] .GFRon 06-27-2024 GFR >60 [facility] Comment on above: Result Comment: GFR [...] By: #### G FR, BMP, MG #### [address] [address] GFR Non- >60 [facility] Comment on above: Result Comment: GFR [...] By: #### G FR, BMP, MG #### [address] [address] GFR >60 [facility] Comment on above: Result Comment: GFR [...] By: #### G FR, BMP, MG #### [address] [address] GFR Non- >60 [facility] Comment on above: Result Comment: GFR [...] By: #### G FR, BMP, MG #### [address] [address] .NEUABSon 06-27-2024 Neutrophil, Absolute 8.9 10 3/mcL High 2.3-8.1 [facility] Comment on above: Performed By: #### G FR, BMP, MG #### [place] [address] 12 Lead EKGon 06-27-2024 12 Lead EKG Normal [facility] A1Con 06-27-2024 Glucose [Mass/Vol] 157 mg/dL Normal [facility] Comment on above: Result Comment: Sharron mated Average Glucose calculated by equation ((28.7xA1C)-46.7) Estimated average glucose (eAG) is a calculated value from Hemoglobin A1C and is customer engagement representative of the average blood glucose level in the last 2-3 month period. Normal range: less than 114 mg/dL Performed By: #### G FR, BMP, MG #### [place] [address] HbA1c (Bld) [Mass fraction] 7.1 % High 4.0-6.0 [facility] Comment on above: Performed By: #### G FR, BMP, MG #### [place] [address] APTTon 06-27-2024 aPTT Coag (Bld) [Time] 35.3 s High 25.0-35.0 [facility] Comment on above: Result Comment: For Heparin anticoagulation therapy, the recommended therapeutic range is: 54-77 seconds (APTT Correlation with Anti-Xa therapeutic range of 0.3-0.7 units/ml). PLEASE REFERENCE THE PHARMACY PROTOCOL FOR DOSING. Performed By: #### G FR, BMP, MG #### [place] [address] aPTT Coag (Bld) [Time] 30.3 s Normal 25.0-35.0 [facility] Comment on above: Result Comment: For Heparin anticoagulation therapy, the recommended therapeutic range is: 54-77 seconds (APTT Correlation with Anti-Xa therapeutic range of 0.3-0.7 units/ml). PLEASE REFERENCE THE PHARMACY PROTOCOL FOR DOSING. Performed By: #### A PTT #### [address] [address] Absolute lymphocyte countOrd ered By: Jessi Kaur on 06-27-2024 Lymphocytes Auto (Unsp spec) [#/Vol] 1.68 10*3/uL 0.83-4.51 [facility] Absolute neutrophil countOrd ered By: Jessi Kaur on 06-27-2024 Neutrophils (Bld) [#/Vol] 4.3 10*3/uL 2.0-7.7 [facility] Albumin to globulin ratioOrd ered By: Jessi Kaur on 06-27-2024 Albumin/Globulin [Mass ratio] 0.7 {ratio} Low 0.9-2.4 [facility] Arterial patency Wrist arter y --pre arterial punctureOrdered By: Jessi Kaur on 06-27-2024 Edgar Test Positive [facility] Assessment of wrist artery p atency prior to arterial punctureOrdered By: Jessi Kaur on 06-27-2024 Arterial patency Wrist artery --pre arterial puncture Positive [facility] Automated lymphocyte count a s percentage of total leukocytesOrdered By: Jessi Kaur on 06-27-2024 Lymphocytes/100 WBC Auto (Unsp spec) 24.4 % 19-41 [facility] BMPon 06-27-2024 BUN/Creatinine Ratio 27.9 ratio High 10.0-22.0 [facility] Comment on above: Performed By: #### G FR, BMP, MG #### [address] [address] Calcium [Mass/Vol] 9.1 mg/dL Normal 8.7-10.4 [facility] Comment on above: Performed By: #### G FR, BMP, MG #### [address] [address] Chloride [Moles/Vol] 101 mmol/L Normal 98-110 [facility] Comment on above: Performed By: #### G FR, BMP, MG #### [address] [address] CO2 [Moles/Vol] 26 mmol/L Normal 22-32 [facility] Comment on above: Performed By: #### G FR, BMP, MG #### [address] [address] Creatinine [Mass/Vol] 0.86 mg/dL Normal 0.60-1.40 [facility] Comment on above: Result Comment: Test ing performed on [employer] analyzer using enzymatic creatinine methodology. Performed By: #### G FR, BMP, MG #### [address] [address] Electrolyte Balance 9.0 mEq/L Normal 4.0-15.0 [facility] Comment on above: Performed By: #### G FR, BMP, MG #### [address] [address] Glucose [Mass/Vol] 302 mg/dL High 82-115 [facility] Comment on above: Performed By: #### G FR, BMP, MG #### [address] [address] Potassium [Moles/Vol] 3.8 mmol/L Normal 3.5-5.0 [facility] Comment on above: Performed By: #### G FR, BMP, MG #### [address] [address] Sodium [Moles/Vol] 136 mmol/L Normal 136-145 [facility] Comment on above: Performed By: #### G FR, BMP, MG #### [address] [address] Urea nitrogen [Mass/Vol] 24.0 mg/dL High 8.0-22.0 [facility] Comment on above: Performed By: #### G FR, BMP, MG #### [address] [address] Base excess Calc (BldV) [Mol es/Vol]Ordered By: Jessi Kaur on 06-27-2024 Blood Gas Base Excess -2 mmol/L -2-2 [facility] Basophil percentageOrdered B y: Jessi Kaur on 06-27-2024 Basophils/100 WBC (Bld) 0.6 % 0-1 [facility] Bilirubin, totalOrdered By: Jessi Kaur on 06-27-2024 Bilirubin [Mass/Vol] 0.90 mg/dL 0.20-1.00 [facility] Comment on above: For patients on eltr ombopag therapy, use of Dimension [place] TBIL is not recommended. [facility] Positive [facility] Comment on above: Performed By: #### L 9000.0800 ####[facility] [address] [place], [address] Base excess Calc (Bld) [Moles/Vol] -2 mmol/L Normal -2 to +2 [facility] Comment on above: Performed By: #### L 9000.0800 ####[facility] [address] [place], [address] Blood Gas Type ART [facility] Comment on above: Performed By: #### L 9000.0800 ####[facility] [address] [place], [address] CO2 [Moles/Vol] 24 mmol/L [facility] Comment on above: Performed By: #### L 9000.0800 ####[facility] [address] [place], [address] FI02 2.0 [facility] Comment on above: Performed By: #### L 9000.0800 ####[facility] [address] [place], [address] HCO3 (Bld) [Moles/Vol] 23.0 mmol/L Normal 22-26 [facility] Comment on above: Performed By: #### L 9000.0800 ####[facility] [address] [place], [address] Mode Not entered [facility] Comment on above: Performed By: #### L 9000.0800 ####[facility] [address] [place], [address] O2 Delivery Dev Cannula [facility] Comment on above: Performed By: #### L 9000.0800 ####[facility] [address] [place], [address] pCO2 38.3 mmHg Normal 35-45 [facility] Comment on above: Performed By: #### L 9000.0800 ####[facility] [address] [place], [address] pH (Bld) 7.39 [pH] Normal 7.35-7.45 [facility] Comment on above: Performed By: #### L 9000.0800 ####[facility] [address] [place], [address] PO2 50 mmHG Low 75-100 [facility] Comment on above: Performed By: #### L 9000.0800 ####[facility] [address] [place], [address] SITE L Radial Normal [facility] Comment on above: Performed By: #### L 9000.0800 ####[facility] [address] [place], [address] SO2 84 Low 95-99 [facility] Comment on above: Performed By: #### L 9000.0800 ####[facility] [address] [place], [address] Blood base excess determinat ionOrdered By: Jessi Kaur on 06-27-2024 Base excess Calc (BldV) [Moles/Vol] -2 mmol/L -2-2 [facility] Blood bicarbonate measuremen tOrdered By: Jessi Kaur on 06-27-2024 Blood Gas Bicarbonate Actual 23.0 mmol/L [facility] HCO3 (Bld) [Moles/Vol] 23.0 mmol/L [facility] Blood manual differential co mment interpretation (narrative result)Ordered By: Jessi Kaur on 06-27-2024 Manual differential comment Royer (Bld) [Interp] SCANNED [facility] Blood urea nitrogen (BUN)/cr eatinine ratioOrdered By: Jessi Kaur on 06-27-2024 Urea nitrogen/Creatinine [Mass ratio] 24.1 mg/mg High 10-20 [facility] CBCon 06-27-2024 Erythrocyte distribution width (RBC) [Ratio] 15.0 % Normal 11.5-15.5 [facility] Comment on above: Performed By: #### G FR, BMP, MG #### [place] [address] Hematocrit (Bld) [Volume fraction] 35.3 % Low 40.0-52.0 [facility] Comment on above: Performed By: #### G FR, BMP, MG #### [place] [address] Hgb 12.0 G/dL Low 13.0-17.5 [facility] Comment on above: Performed By: #### G FR, BMP, MG #### [place] [address] MCH (RBC) [Entitic mass] 32.1 pg Normal 27.0-33.0 [facility] Comment on above: Performed By: #### G FR, BMP, MG #### [place] [address] MCHC 34.2 G/dL Normal 32.0-36.0 [facility] Comment on above: Performed By: #### G FR, BMP, MG #### [place] [address] MCV (RBC) [Entitic vol] 94.1 fL Normal 81.0-100.0 [facility] Comment on above: Performed By: #### G FR, BMP, MG #### [place] [address] Platelet 119 10 3/mcL Low 150-450 [facility] Comment on above: Performed By: #### G FR, BMP, MG #### [place] [address] Platelet mean volume (Bld) [Entitic vol] 10.8 fL High 6.4-10.5 [facility] Comment on above: Performed By: #### G FR, BMP, MG #### [facility] [address] [place] [address] RBC 3.75 10 6/mcL Low 4.50-6.00 [facility] Comment on above: Performed By: #### G FR, BMP, MG #### [facility] [address] [place] [address] WBC 10.8 10 3/mcL Normal 4.5-10.8 [facility] Comment on above: Performed By: #### G FR, BMP, MG #### [facility] [address] [place] [address] CBC W/Diff, Automatedon 06-04 PLT EST ADEQUATE Normal ADEQ [facility] Comment on above: Performed By: #### L 501.5200, L500.4050, L100.0100, L501.2300 ####[facility] [address] [place], [address] PLT MORPH CLUMPED Normal [facility] Comment on above: Performed By: #### L 501.5200, L500.4050, L100.0100, L501.2300 ####[facility] [address] [place], [address] RED CELL MORPH NORM C+C Normal NORM C C [facility] Comment on above: Performed By: #### L 501.5200, L500.4050, L100.0100, L501.2300 ####[facility] [address] [place], [address] SMEAR COMMENT SCANNED Normal [facility] Comment on above: Performed By: #### L 501.5200, L500.4050, L100.0100, L501.2300 ####[facility] [address] [place], [address] PLT Normal 150-450 [facility] Comment on above: Result Comment: Plea se note: For this sample, a platelet estimate isprovided rather than a platelet count due to plateletclumping. Other parameters associated with this sample arenot affected by platelet clumping. If a more accurateplatelet count is required, a redraw of the patient will benecessary. Performed By: #### L 501.5200, L500.4050, L100.0100, L501.2300 ####[facility] [address] [place], [address] [facility] Albumin Level 3.0 G/dL Low 3.2-4.8 [facility] Comment on above: Performed By: #### G FR BMP, MG #### [place] [address] Albumin/Globulin [Mass ratio] 0.8 {ratio} Low 0.9-1.6 [facility] Comment on above: Performed By: #### Lamberto FR BMP, MG #### [place] [address] ALP [Catalytic activity/Vol] 98 U/L Normal 38-126 [facility] Comment on above: Performed By: #### Lamberto BARKER BMP, MG #### [place] [id number] ALT [Catalytic activity/Vol] 30 U/L Normal 12-55 [facility] Comment on above: Performed By: #### G FR BMP, MG #### [place] [id number] AST [Catalytic activity/Vol] 29 U/L Normal 8-34 [facility] Comment on above: Performed By: #### G FR, BMP, MG #### [place] [id number] Bili Total 1.00 mg/dL Normal 0.20-1.20 [facility] Comment on above: Result Comment: Use of this assay is not recommended for patients undergoing treatment with eltrombopag due to the potential for falsely elevated results. Performed By: #### G FR, BMP, MG #### [place] [id number] BUN/Creatinine Ratio 27.8 ratio High 10.0-22.0 [facility] Comment on above: Performed By: #### G FR BMP, MG #### [address] [address] Calcium [Mass/Vol] 9.0 mg/dL Normal 8.7-10.4 [facility] Comment on above: Performed By: #### G FR, BMP, MG #### [address] [address] Chloride [Moles/Vol] 104 mmol/L Normal 98-110 [facility] Comment on above: Performed By: #### G FR, BMP, MG #### [place] [id number] CO2 [Moles/Vol] 24 mmol/L Normal 22-32 [facility] Comment on above: Performed By: #### Lamberto FR, BMP, MG #### [place] [id number] Creatinine [Mass/Vol] 0.79 mg/dL Normal 0.60-1.40 [facility] Comment on above: Result Comment: Test ing performed on [employer] analyzer using enzymatic creatinine methodology. Performed By: #### Lamberto FR, BMP, MG #### [place] [id number] Electrolyte Balance 10.0 mEq/L Normal 4.0-15.0 [facility] Comment on above: Performed By: #### G FR, BMP, MG #### [address] [address] Globulin 3.9 G/dL High 1.5-3.8 [facility] Comment on above: Performed By: #### G FR, BMP, MG #### [place] [id number] Glucose [Mass/Vol] 282 mg/dL High 82-115 [facility] Comment on above: Performed By: #### G FR, BMP, MG #### [place] [id number] Potassium [Moles/Vol] 3.8 mmol/L Normal 3.5-5.0 [facility] Comment on above: Performed By: #### G FR, BMP, MG #### [facility] [address] [place] [address] Sodium [Moles/Vol] 138 mmol/L Normal 136-145 [facility] Comment on above: Performed By: #### G FR, BMP, MG #### [facility] [address] [place] [address] Total Protein 6.9 G/dL Normal 5.7-8.2 [facility] Comment on above: Performed By: #### G FR, BMP, MG #### [facility] [address] [place] [address] Urea nitrogen [Mass/Vol] 22.0 mg/dL Normal 8.0-22.0 [facility] Comment on above: Performed By: #### G FR, BMP, MG #### [facility] [address] [place] [address] Carbon dioxide measurementOr dered By: Jessi Kaur on 06-27-2024 CO2 [Moles/Vol] 25.0 mmol/L 21.0-32.0 [facility] Chest 1 View (Portable)on Chest 1 View (Portable) Normal [facility] Chloride measurementOrdered By: Jessi Kaur on 06-27-2024 Chloride [Moles/Vol] 106 mmol/L 98-107 [facility] Comprehensive Metabolic Prof ilon 06-27-2024 Albumin [Mass/Vol] 2.8 g/dL Low 3.2-5.[address] [facility] Comment on above: Performed By: #### L 501.5200, L500.4050, L100.0100, L501.2300 ####[facility] [address] [place], [place], [address] Albumin/Globulin [Mass ratio] 0.7 {ratio} Low 0.9-2.4 [facility] Comment on above: Performed By: #### L 501.5200, L500.4050, L100.0100, L501.2300 ####[facility] [address] [place], [address] ALK P 91 U/L Normal 45-117 [facility] Comment on above: Performed By: #### L 501.5200, L500.4050, L100.0100, L501.2300 ####[facility] [address] [place], [address] ALT [Catalytic activity/Vol] 33 U/L Normal 16-61 [facility] Comment on above: Performed By: #### L 501.5200, L500.4050, L100.0100, L501.2300 ####[facility] [address] [place], [address] AST [Catalytic activity/Vol] 27 U/L Normal 15-37 [facility] Comment on above: Performed By: #### L 501.5200, L500.4050, L100.0100, L501.2300 ####[facility] [address] [place], [address] Bilirubin [Mass/Vol] 0.90 mg/dL Normal 0.20-1.00 [facility] Comment on above: Result Comment: For patients on eltrombopag therapy, use of Dimension [place] TBIL is not recommended. Performed By: #### L 501.5200, L500.4050, L100.0100, L501.2300 ####[facility] [address] [place], [address] BUN/CRE 24.1 RATIO High 10-20 [facility] Comment on above: Performed By: #### L 501.5200, L500.4050, L100.0100, L501.2300 ####[facility] [address] [place], [address] CA,Total 8.8 mg/dL Normal 8.5-10.1 [facility] Comment on above: Performed By: #### L 501.5200, L500.4050, L100.0100, L501.2300 ####[facility] [address] [place], [address] Chloride [Moles/Vol] 106 mmol/L Normal 98-107 [facility] Comment on above: Performed By: #### L 501.5200, L500.4050, L100.0100, L501.2300 ####[facility] [address] [place], [address] CO2 [Moles/Vol] 25.0 mmol/L Normal 21.0-32.0 [facility] Comment on above: Performed By: #### L 501.5200, L500.4050, L100.0100, L501.2300 ####[facility] [address] [place], [address] Creatinine [Mass/Vol] 1.00 mg/dL Normal 0.70-1.30 [facility] Comment on above: Result Comment: The validity of the calculated GFR GFRAA in patients over70 years has not been determined. Clinical correlation isessential. Performed By: #### L 501.5200, L500.4050, L100.0100, L501.2300 ####[facility] [address] [place], [address] ECRCL 83.68 ml/min Normal [facility] Comment on above: Performed By: #### L 501.5200, L500.4050, L100.0100, L501.2300 ####[facility] [address] [place], [address] EST GFR - AA 94 mL/min Normal >60 [facility] Comment on above: Result Comment: Afri can Russian GFR Calc Performed By: #### L 501.5200, L500.4050, L100.0100, L501.2300 ####[facility] [address] [place], [address] GAP 7 Normal 5-15 [facility] Comment on above: Performed By: #### L 501.5200, L500.4050, L100.0100, L501.2300 ####[facility] [address] [place], [address] GFR/1.73 sq M.predicted among non-blacks MDRD (S/P/Bld) [Vol rate/Area] 77 mL/min/{1.73_m2} Normal >60 [facility] Comment on above: Result Comment: Non- GFR Calc Performed By: #### L 501.5200, L500.4050, L100.0100, L501.2300 ####[facility] [address] [place], [address] Globulin (S) [Mass/Vol] 4.1 g/dL Normal 2.2-4.2 [facility] Comment on above: Performed By: #### L 501.5200, L500.4050, L100.0100, L501.2300 ####[facility] [address] [place], [address] Glucose [Mass/Vol] 244 mg/dL High 74-[address] [facility] Comment on above: Result Comment: Gluc ose result greater than or equal to 200 mg/dLsuggests DIABETES MELLITUS per A.D.A. criteria. Performed By: #### L 501.5200, L500.4050, L100.0100, L501.2300 ####[facility] [address] [place], [address] Potassium [Moles/Vol] 3.3 mmol/L Low 3.5-5.1 [facility] Comment on above: Performed By: #### L 501.5200, L500.4050, L100.0100, L501.2300 ####[facility] [address] [place], [address] Sodium [Moles/Vol] 139 mmol/L Normal 136-[address] [facility] Comment on above: Performed By: #### L 501.5200, L500.4050, L100.0100, L501.2300 ####[facility] [address] [place], [address] T PROT 6.9 g/dL Normal 6.4-8.2 [facility] Comment on above: Performed By: #### L 501.5200, L500.4050, L100.0100, L501.2300 ####[facility] [address] [place], [address] Urea nitrogen [Mass/Vol] 24 mg/dL High 7-18 [facility] Comment on above: Performed By: #### L 501.5200, L500.4050, L100.0100, L501.2300 ####[facility] [address] [place], [address] Determination of fraction of inspired oxygenOrdered By: Jessi Kaur on 06-27-2024 Blood Gas Oxygen Percent 2.0 [facility] Echo Limited w/Contraston Echo Limited w/Contrast Normal [facility] Eosinophil percentageOrdered By: Jessi Kaur on 06-27-2024 Eosinophils/100 WBC (Bld) 1.9 % 0-5 [facility] Erythrocyte distribution wid th (RBC) [Ratio]Ordered By: Jessi Kaur on 06-27-2024 Erythrocyte distribution width (RBC) [Entitic vol] 49.0 fL High 35.1-43.9 [facility] Erythrocyte distribution wid th ratioOrdered By: Jessi Kaur on 06-27-2024 Erythrocyte distribution width (RBC) [Ratio] 14.3 % 11.6-14.6 [facility] Erythrocyte distribution wid th standard deviationOrdered By: Jessi Kaur on 06-27-2024 Erythrocyte distribution width (RBC) [Ratio] 49.0 fl High 35.1-43.9 [facility] Erythrocyte morphology asses smentOrdered By: Jessi Kaur on 06-27-2024 RBC morphology finding Nom (Bld) NORM C+C NORMAL NORM C&C [facility] Estimated glomerular filtrat ion rate (GFR) AmericanOrdered By: Jessi Kaur on 06-27-2024 Estimated GFR (MDRD) Amer 94 mL/min >60 [facility] Comment on above: GFR Calc Estimation of creatinine dennys aranceOrdered By: Jessi Kaur on 06-27-2024 Estimated Creatinine Clearance Calc 83.68 ml/min [facility] Glomerular filtration rate ( GFR) estimationOrdered By: Jessi Kaur on 06-27-2024 Estimated GFR (MDRD) Non-Af Amer 77 mL/min >60 [facility] Comment on above: Non- GFR Calc GFR/1.73 sq M.predicted among non-blacks MDRD (S/P/Bld) [Vol rate/Area] 77 mL/min/{1.73_m2} >60 [facility] Glucose measurementOrdered B y: Jessi Kaur on 06-27-2024 Glucose [Mass/Vol] 244 mg/dL High 74-[address] [facility] Comment on above: Glucose result great er than or equal to 200 mg/dLsuggests DIABETES MELLITUS per A.D.A. criteria. Hematocrit Auto (Bld) [Volum e fraction]Ordered By: Jessi Kaur on 06-27-2024 Hematocrit (Bld) [Volume fraction] 34.5 % Low 40-54 [facility] Hemoglobin measurementOrdere d By: Jessi Kaur on 06-27-2024 Hemoglobin (Bld) [Mass/Vol] 11.7 g/dL Low 13.0-16.5 [facility] Immature granulocytes/100 WB C Auto (Bld)Ordered By: Jessi Kaur on 06-27-2024 Immature granulocytes/100 WBC (Bld) 2.200 % High 0.0-0.9 [facility] Comment on above: IG% - Immature Granu locytes (promyelocytes, myelocytes and metamyelocytes) > 1% indicates that a LEFT SHIFT is Present. International normalized rat io (INR) calculationOrdered By: Jessi Kaur on 06-27-2024 INR Coag (Bld) [Relative time] 1.3 {INR} [facility] LABORATORYOrdered By: SYSTEM SYSTEM on 06-27-2024 Lactate [...] calculated value from Hemoglobin A1C and is customer engagement representative of the average blood glucose [...] Comment on above: Interpretive Data: Dean lopez [employer] (CHEST, 1991, 102:[id number]) recommended therapeutic range for oral anticoagulant therapy is: LOW RISK: Prophylaxis of venous thrombosis INR: 2.0-3.0 Treatment of pulmonary embolism 2.0-3.0 Prevention of systemic embolism 2.0-3.0 HIGH RISK: Mechanical prosthetic valves 2.5-3.5 TSH Qn 2.003 mIU/mL Normal 0.550 - 4.780 mIU/mL [facility] LABORATORYOrdered By: Charley Lewis on 06-27-2024 Blood Glucose Interventions Notify physician (06/27/24 4:25 PM) [facility] Work Phone: LABORATORYOrdered By: Marina browne on 06-27-2024 Cholesterol [Mass/Vol] 114 mg/dL Normal 50 - 199 mg/dL [facility] Comment on above: Interpretive Data: C holesterol Reference Interval: Less than 200 Desirable 200-239 Borderline high risk 240 and above High risk Cholesterol in HDL [Mass/Vol] 43 mg/dL Normal 40 - 59 mg/dL ADM SS Cholesterol in LDL [Mass/Vol] 56 mg/dL Normal 0 - 129 mg/dL ADM Triglyceride [Mass/Vol] 76 mg/dL Normal 3 - 149 mg/dL [facility] LACon 06-27-2024 Lactic Acid Lvl 2.7 mmol/L High 0.5-2.2 [facility] Comment on above: Performed By: #### G FR, BMP, MG #### [address] [address] Lactic Acid Lvl 2.7 mmol/L High 0.5-2.2 [facility] Comment on above: Order Comment: Order ed secondary to Lactic Acid result greater than or equal to 2.0 Performed By: #### A PTT #### [address] [address] Lactic Acid Lvl 2.7 mmol/L High 0.5-2.2 [facility] Comment on above: Performed By: #### G FR, BMP, MG #### [address] [address] LIPIDon 06-27-2024 Cholesterol [Mass/Vol] 114 mg/dL Normal 50-199 [facility] Comment on above: Result Comment: Chol esterol Reference Interval: Less than 200 Desirable 200-239 Borderline high risk 240 and above High risk Performed By: #### G FR, BMP, MG #### [address] [address] Cholesterol in HDL [Mass/Vol] 43 mg/dL Normal 40-59 [facility] Comment on above: Performed By: #### G FR, BMP, MG #### [address] [address] Cholesterol in LDL [Mass/Vol] 56 mg/dL Normal 0-129 [facility] Comment on above: Performed By: #### G FR, BMP, MG #### [address] [address] Triglyceride [Mass/Vol] 76 mg/dL Normal 3-149 [facility] Comment on above: Performed By: #### G FR, BMP, MG #### [address] [address] Laboratory - Chemistry and C hemistry - challengeOrdered By: Jessi Kaur on 06-27-2024 AST [Catalytic activity/Vol] 27 U/L 15-37 [facility] Lymphocytes Auto (Unsp spec) [#/Vol]Ordered By: Jessi Kaur on 06-27-2024 Lymphocytes (Bld) [#/Vol] 1.68 10*3/uL 0.83-4.51 [facility] Lymphocytes/100 WBC Auto (Un sp spec)Ordered By: Jessi Kaur on 06-27-2024 Lymphocytes/100 WBC (Bld) 24.4 % 19-41 [facility] MCV (mean corpuscular volume ) determinationOrdered By: Jessi Kaur on 06-27-2024 MCV (RBC) [Entitic vol] 94.0 fL 80-94 [facility] MGon 06-27-2024 Magnesium [Mass/Vol] 2.3 mg/dL Normal 1.6-2.4 [facility] Comment on above: Performed By: #### G FR, BMP, MG #### [facility] [address] [place] [address] Magnesium [Mass/Vol] 1.7 mg/dL Normal 1.6-2.4 [facility] Comment on above: Performed By: #### G FR, BMP, MG #### [facility] [address] [place] [address] Magnesiumon 06-27-2024 Magnesium [Mass/Vol] 1.6 mg/dL Normal 1.6-2.6 [facility] Comment on above: Performed By: #### L 501.5200, L500.4050, L100.0100, L501.2300 ####[facility] [address] [place], [address] Magnesium measurementOrdered By: Jessi Kaur on 06-27-2024 Magnesium [Mass/Vol] 1.6 mg/dL 1.6-2.6 [facility] [facility] Manual differential comment Royer (Bld) [Interp]Ordered By: Jessi Kaur on 06-27-2024 Differential Comment SCANNED [facility] Mean corpuscular hemoglobin (MCH) determinationOrdered By: Jessi Kaur on 06-27-2024 MCH (RBC) [Entitic mass] 31.9 pg 27.0-32.0 [facility] Mean corpuscular hemoglobin concentration (MCHC) determinationOrdered By: Jessi Kaur on 06-27-2024 MCHC (RBC) [Mass/Vol] 33.9 g/dL 32-36 [facility] Measurement, pHOrdered By: Camryn Kaur on 06-27-2024 pH (Unsp spec) 7.39 [pH] 7.35-7.45 [facility] Monocyte percentageOrdered B y: Jessi Kaur on 06-27-2024 Monocytes/100 WBC (Bld) 9.0 % 0-10 [facility] Neutrophil percentageOrdered By: Jessi Kaur on 06-27-2024 Neutrophils/100 WBC (Bld) 61.9 % 47-70 [facility] No Panel InformationOrdered By: Jessi Kaur on 06-27-2024 27 U/L 15-37 [facility] Blood Gas Sample Site L Radial [facility] Blood Gas Specimen Type ART [facility] Blood Gas Vent Mode Not entered [facility] Oxygen Delivery Device Cannula [facility] ART [facility] L Radial [facility] Not entered [facility] Cannula [facility] Nucleated red blood cell per centageOrdered By: Jessi Kaur on 06-27-2024 Nucleated RBC/100 WBC (Bld) [Ratio] 0.3 % 0-5 [facility] Oxygen saturation measuremen tOrdered By: Jessi Kaur on 06-27-2024 Blood Gas Oxygen Saturation 84 % Low 95-99 [facility] PBNPon 06-27-2024 Natriuretic peptide B (Bld) [Mass/Vol] 1187 pg/mL Normal 0-1800 [facility] Comment on above: Performed By: #### G FR, BMP, MG #### [facility] [address] [place] [id number] PROon 06-27-2024 INR Coag (PPP) [Relative time] 1.2 {INR} Normal [facility] Comment on above: Result Comment: [employer] (CHEST, 1991, 102:312S-25S) recommended therapeutic range for oral anticoagulant therapy is: LOW RISK: Prophylaxis of venous thrombosis INR: 2.0-3.0 Treatment of pulmonary embolism 2.0-3.0 Prevention of systemic embolism 2.0-3.0 HIGH RISK: Mechanical prosthetic valves 2.5-3.5 Performed By: #### G FR, BMP, MG #### [facility] [address] [place] [address] PT Coag (PPP) [Time] 14.3 s Normal 9.0-14.4 [facility] Comment on above: Result Comment: Effe ctive 12/16/07, Protime results may be affected by some antibiotics (i.e. Ciprofloxacin, Azithromycin, Bactrim) which may potentiate the action of oral anticoagulants, with further increases in Protime/INR. Performed By: #### G FR, BMP, MG #### [facility] [address] [place] [address] Partial pressure of carbon d ioxide measurementOrdered By: Jessi Kaur on 06-27-2024 Arterial Blood Partial Pressure CO2 38.3 mmHg 35-45 [facility] Partial pressure of oxygen m easurementOrdered By: eJssi Kaur on 06-27-2024 Arterial Blood Partial Pressure O2 50 mmHG Low 75-100 [facility] Phosphoruson 06-27-2024 Phosphate [Mass/Vol] 2.7 mg/dL Normal 2.5-4.9 [facility] Comment on above: Performed By: #### L 501.5200, L500.4050, L100.0100, L501.2300 ####[facility] [address] [place], [address] Phosphorus measurementOrdere d By: Jessi Kaur on 06-27-2024 Phosphorus Level 2.7 mg/dL 2.5-4.9 [facility] Platelet countOrdered By: Oscar Kaur on 06-27-2024 Platelet Count See comment 150-450 [facility] Comment on above: Please note: For thi [...] 06-27-2024 Platelets LM Ql (Bld) ADEQUATE ADEQ [facility] Platelet morphologyOrdered B y: Jessi Kaur on 06-27-2024 Platelet morphology finding Nom (Bld) CLUMPED [facility] Platelet morphology finding Nom (Bld)Ordered By: Jessi Kaur on 06-27-2024 Platelet Morphology Comment CLUMPED [facility] Platelets LM Ql (Bld)Ordered By: Jessi Kaur on 06-27-2024 Platelet Estimate ADEQUATE [facility] Potassium measurementOrdered By: Jessi Kaur on 06-27-2024 Potassium [Moles/Vol] 3.3 mmol/L Low 3.5-5.1 [facility] Prothrombin Time w/INRon INR Coag (PPP) [Relative time] 1.3 {INR} Normal [facility] Comment on above: Performed By: #### L 300.3900 ####[facility] [address] [place], [place], [id number] PT Coag (PPP) [Time] 16.1 s High 11.7-14.9 [facility] Comment on above: Performed By: #### L 300.3900 ####[facility] [address] [place], [place], [id number] Prothrombin timeOrdered By: Jessi Kaur on 06-27-2024 PT Coag (PPP) [Time] 16.1 s High 11.7-14.9 [facility] RBC Auto (Bld) [#/Vol]Ordere d By: Jessi Kaur on 06-27-2024 RBC (Bld) [#/Vol] 3.67 10*6/uL Low 4.6-6.2 [facility] RBC morphology finding Nom ( Bld)Ordered By: Jessi Kaur on 06-27-2024 Red Blood Cell Morphology NORM C+C NORMAL NORM C&C [facility] Serum anion gap measurementO rdered By: Jessi Kaur on 06-27-2024 Anion gap [Moles/Vol] 7 mmol/L 5-15 [facility] Serum globulin measurementOr dered By: Jessi Kaur on 06-27-2024 Globulin (S) [Mass/Vol] 4.1 g/dL 2.2-4.2 [facility] Serum or plasma alanine grace otransferase (ALT) measurementOrdered By: Jessi Kaur on 06-27-2024 ALT [Catalytic activity/Vol] 33 U/L 16-61 [facility] Serum or plasma albumin shweta urement (mass/volume)Ordered By: Jessi Kaur on 06-27-2024 Albumin [Mass/Vol] 2.8 g/dL Low 3.2-5.[address] [facility] Serum or plasma alkaline gibson sphatase measurementOrdered By: Jessi Kaur on 06-27-2024 ALP [Catalytic activity/Vol] 91 U/L 45-117 [facility] Serum or plasma calcium shweta urement (mass/volume)Ordered By: Jessi Kaur on 06-27-2024 Calcium [Mass/Vol] 8.8 mg/dL 8.5-10.[address] [facility] Serum or plasma creatinine m easurement (mass/volume)Ordered By: Jessi Kaur on 06-27-2024 Creatinine [Mass/Vol] 1.00 mg/dL 0.70-1.30 [facility] Comment on above: The validity of the calculated GFR & GFRAA in patients over 70 years has not been determined. Clinical correlation is essential. Serum or plasma urea nitroge n measurement (mass/volume)Ordered By: Jessi Kaur on 06-27-2024 Urea nitrogen [Mass/Vol] 24 mg/dL High 7-18 [facility] Sodium levelOrdered By: Jessi Kaur on 06-27-2024 Sodium [Moles/Vol] 139 mmol/L 136-[address] [facility] TSHRon 06-27-2024 TSH 2.003 mIU/mL Normal 0.550-4.78 0 [facility] Comment on above: Performed By: #### G FR, BMP, MG #### [place] [address] Total carbon dioxide measure mentOrdered By: Jessi Kaur on 06-27-2024 Blood Gas Total CO2 24 mmol/L [facility] CO2 [Moles/Vol] 24 mmol/L [facility] Total proteinOrdered By: Ana Luisa Kaur on 06-27-2024 Protein [Mass/Vol] 6.9 g/dL 6.4-8.[address] [facility] White blood cell (WBC) count Ordered By: Jessi Kaur on 06-27-2024 WBC (Bld) [#/Vol] 6.9 10*3/uL 4.4-11.[address] [facility] XR CHEST 1 VIEWon 06-27-2024 XR CHEST [...] 06/27/2024 1:04:58 PM Ordering Provider: CHANEL EDWARDS [facility] pH (Unsp spec)Ordered By: Oscra Kaur on 06-27-2024 Blood Gas pH 7.39 7.35-7.45 [facility] 12 Lead EKGon 06-26-2024 12 Lead EKG Normal [facility] Bedside Glucoseon 06-26-2024 FINGERSTICK GLU 250 mg/dL High [facility]106 [facility] Comment on above: Result Comment: MARIUM GEMENT OF PATIENT CARE PER NURSING PROTOCOL Performed By: #### L 501.080 ####[facility] [address] [place], [address] FINGERSTICK GLU 169 mg/dL High [address] [place] [address] Comment on above: Result Comment: MARIUM GEMENT OF PATIENT CARE PER NURSING PROTOCOL Performed By: #### L 501.080 ####[facility] [address] [place], [address] FINGERSTICK GLU 218 mg/dL High [address] [place] [address] Comment on above: Result Comment: MARIUM GEMENT OF PATIENT CARE PER NURSING PROTOCOL Performed By: #### L 501.080 ####[facility] [address] [place], [address] CBC W/Diff, Automatedon -2 PLT EST SLT DEC Normal ADEQ [facility] Comment on above: Performed By: #### L 501.2300, L500.4050, L501.5200, L100.0100 ####[facility] [address] [place], [address] Comprehensive Metabolic Prof ilon 06-26-2024 Albumin [Mass/Vol] 2.6 g/dL Low 3.2-5.[address] [facility] Comment on above: Performed By: #### L 501.2300, L500.4050, L501.5200, L100.0100 ####[facility] [address] [place], [address] Albumin/Globulin [Mass ratio] 0.6 {ratio} Low 0.9-2.4 [facility] Comment on above: Performed By: #### L 501.2300, L500.4050, L501.5200, L100.0100 ####[facility] [address] [place], [address] ALK P 92 U/L Normal 45-117 [facility] Comment on above: Performed By: #### L 501.2300, L500.4050, L501.5200, L100.0100 ####[facility] [address] [place], [address] ALT [Catalytic activity/Vol] 34 U/L Normal 16-61 [facility] Comment on above: Performed By: #### L 501.2300, L500.4050, L501.5200, L100.0100 ####[facility] [address] [place], [address] AST [Catalytic activity/Vol] 25 U/L Normal 15-37 [facility] Comment on above: Performed By: #### L 501.2300, L500.4050, L501.5200, L100.0100 ####[facility] [address] [place], [address] Bilirubin [Mass/Vol] 0.70 mg/dL Normal 0.20-1.00 [facility] Comment on above: Result Comment: For patients on eltrombopag therapy, use of Dimension [place] TBIL is not recommended. Performed By: #### L 501.2300, L500.4050, L501.5200, L100.0100 ####[facility] [address] [place], [address] BUN/CRE 21.2 RATIO High 10-20 [facility] Comment on above: Performed By: #### L 501.2300, L500.4050, L501.5200, L100.0100 ####[facility] [address] [place], [address] CA,Total 8.4 mg/dL Low 8.5-10.1 [facility] Comment on above: Performed By: #### L 501.2300, L500.4050, L501.5200, L100.0100 ####[facility] [address] [place], [address] Chloride [Moles/Vol] 110 mmol/L High 98-107 [facility] Comment on above: Performed By: #### L 501.2300, L500.4050, L501.5200, L100.0100 ####[facility] [address] [place], [address] CO2 [Moles/Vol] 24.0 mmol/L Normal 21.0-32.0 [facility] Comment on above: Performed By: #### L 501.2300, L500.4050, L501.5200, L100.0100 ####[facility] [address] [place], [address] Creatinine [Mass/Vol] 0.90 mg/dL Normal 0.70-1.30 [facility] Comment on above: Result Comment: The validity of the calculated GFR GFRAA in patients over70 years has not been determined. Clinical correlation isessential. Performed By: #### L 501.2300, L500.4050, L501.5200, L100.0100 ####[facility] [address] [place], [address] ECRCL 92.98 ml/min Normal [facility] Comment on above: Performed By: #### L 501.2300, L500.4050, L501.5200, L100.0100 ####[facility] [address] [place], [address] EST GFR - AA 106 mL/min Normal >60 [facility] Comment on above: Result Comment: Afri can [place] GFR Calc Performed By: #### L 501.2300, L500.4050, L501.5200, L100.0100 ####[facility] [address] [place], [address] GAP 6 Normal 5-15 [facility] Comment on above: Performed By: #### L 501.2300, L500.4050, L501.5200, L100.0100 ####[facility] [address] [place], [address] GFR/1.73 sq M.predicted among non-blacks MDRD (S/P/Bld) [Vol rate/Area] 88 mL/min/{1.73_m2} Normal >60 [facility] Comment on above: Result Comment: Non- GFR Calc Performed By: #### L 501.2300, L500.4050, L501.5200, L100.0100 ####[facility] [address] [place], [address] Globulin (S) [Mass/Vol] 4.2 g/dL Normal 2.2-4.2 [facility] Comment on above: Performed By: #### L 501.2300, L500.4050, L501.5200, L100.0100 ####[facility] [address] [place], [address] Glucose [Mass/Vol] 244 mg/dL High 74-[address] [facility] Comment on above: Result Comment: Gluc ose result greater than or equal to 200 mg/dLsuggests DIABETES MELLITUS per A.D.A. criteria. Performed By: #### L 501.2300, L500.4050, L501.5200, L100.0100 ####[facility] [address] [place], [address] Potassium [Moles/Vol] 3.4 mmol/L Low 3.5-5.1 [facility] Comment on above: Performed By: #### L 501.2300, L500.4050, L501.5200, L100.0100 ####[facility] [address] [place], [address] Sodium [Moles/Vol] 140 mmol/L Normal 136-[address] [facility] Comment on above: Performed By: #### L 501.2300, L500.4050, L501.5200, L100.0100 ####[facility] [address] [place], [address] T PROT 6.8 g/dL Normal 6.4-8.2 [facility] Comment on above: Performed By: #### L 501.2300, L500.4050, L501.5200, L100.0100 ####[facility] [address] [place], [address] Urea nitrogen [Mass/Vol] 19 mg/dL High 7-18 [facility] Comment on above: Performed By: #### L 501.2300, L500.4050, L501.5200, L100.0100 ####[facility] [address] [place], [address] [facility] deOrdered By: Jessi Kaur on 06-26-2024 Bedside Glucose (Misc Panel) 250 mg/dL High 74-106 [facility] Comment on above: MANAGEMENT OF PATIEN T CARE PER NURSING PROTOCOL Glucose [Mass/Vol] 250 mg/dL High 74-[address] [facility] High density lipoprotein (HD L) measurementOrdered By: Jessi Kaur on 06-26-2024 Cholesterol in HDL [Mass/Vol] 56 mg/dL >40 [facility] Comment on above: The drugs N-Acetylcy steine and Metamizole may falsely depress this assay. Reference Range HDL <40 mg/dL Low HDL Cholesterol HDL >or= 60 mg/dL High HDL Cholesterol High density lipoprotein (HDL) measurement 56 mg/dL >40 [facility] Lipid Profileon 06-26-2024 Cholesterol [Mass/Vol] 112 mg/dL Normal 200 [facility] Comment on above: Result Comment: <200 mg/dL Desirable 200-240 mg/dL Borderline >240 mg/dL High Risk Performed By: #### L 500.4100 ####[facility] [address] [place], [address] Cholesterol in HDL [Mass/Vol] 56 mg/dL Normal [facility] Comment on above: Result Comment: The drugs N-Acetylcysteine and Metamizole may falselydepress this assay. Reference Range HDL <40 mg/dL Low HDL Cholesterol HDL >or= 60 mg/dL High HDL Cholesterol Performed By: #### L 500.4100 ####[facility] [address] [place], [address] Cholesterol in LDL [Mass/Vol] 46 mg/dL Normal 0-130 [facility] Comment on above: Performed By: #### L 500.4100 ####[facility] [address] [place], [address] Cholesterol in VLDL [Mass/Vol] 10 mg/dL Normal 5-40 [facility] Comment on above: Performed By: #### L 500.4100 ####[facility] [address] [place], [address] Triglyceride [Mass/Vol] 51 mg/dL Normal [facility] Comment on above: Result Comment: The drugs N-Acetylcysteine and Metamizole may falselydepress this assay.Serum Triglycerides Reference Interval Normal <150 mg/dL Borderline high 150 - 199 mg/dL High 200 - 499 mg/dL Very High > or = 500 mg/dL Performed By: #### L 500.4100 ####[facility] [address] [place], [address] Low density lipoprotein (LDL ) cholesterol measurementOrdered By: Jessi Kaur on 06-26-2024 Cholesterol in LDL [Mass/Vol] 46 mg/dL 0-130 [facility] Low density lipoprotein (LDL) cholesterol measurement 46 mg/dL 0-130 [facility] Magnesiumon 06-26-2024 Magnesium [Mass/Vol] 1.9 mg/dL Normal 1.6-2.6 [facility] Comment on above: Performed By: #### L 501.2300, L500.4050, L501.5200, L100.0100 ####[facility] [address] [place], [address] Phosphoruson 06-26-2024 Phosphate [Mass/Vol] 2.4 mg/dL Low 2.5-4.9 [facility] Comment on above: Performed By: #### L 501.2300, L500.4050, L501.5200, L100.0100 ####[facility] [address] [place], [address] Serum or plasma cholesterol measurement (mass/volume)Ordered By: Jessi Kaur on 06-26-2024 Cholesterol [Mass/Vol] 112 mg/dL <200 [facility] Comment on above: <200 mg/dL Desirable 200-240 mg/dL Borderline >240 mg/dL High Risk Serum or plasma vancomycin l evel (mass/volume)Ordered By: Jessi Kaur on 06-26-2024 Vancomycin [Mass/Vol] 15.9 ug/mL High 0.0-15.0 [facility] Triglycerides measurementOrd ered By: Jessi Kaur on 06-26-2024 Triglyceride [Mass/Vol] 51 mg/dL <199 [facility] Comment on above: The drugs N-Acetylcy steine and Metamizole may falsely depress this assay.Serum Triglycerides Reference Interval Normal <150 mg/dL Borderline high 150 - 199 mg/dL High 200 - 499 mg/dL Very High > or = 500 mg/dL Vancomycin [Mass/Vol]Ordered By: Jessi Kaur on 06-26-2024 Random Vancomycin Level 15.9 ug/mL High 0.0-15.0 [facility] Comment on above: VANCOMYCIN STANDARD DRUG THERAPY: CRITICAL VALUE IS > 15.0 mg/L VANCOMYCIN HIGH INTENSITY THERAPY: CRITICAL VALUE IS > 20.0 mg/L PLEASE CONTACT PHARMACY SERVICES (#[id number]) FOR INTERPRETATIONOF RESULTS. THIS RESULT DOES NOT REPRESENT A PEAK OR TROUGHLEVEL FOR THIS DRUG. Vancomycin, Random Levelon 0 06-26-2024 VANCO, RANDOM 15.9 ug/mL High 0.0-15.0 [facility] Comment on above: Result Comment: VANC OMYCIN STANDARD DRUG THERAPY: CRITICAL VALUE IS > 15.0 mg/LVANCOMYCIN HIGH INTENSITY THERAPY: CRITICAL VALUE IS > 20.0 mg/LPLEASE CONTACT PHARMACY SERVICES (#[id number]) FOR INTERPRETATIONOF RESULTS. THIS RESULT DOES NOT REPRESENT A PEAK OR TROUGHLEVEL FOR THIS DRUG. Performed By: #### L 501.8850 ####[facility] [address] [place], [place], [address] Very low density lipoprotein (VLDL) cholesterol measurementOrdered By: Jessi Karu on 06-26-2024 Very low density lipoprotein (VLDL) cholesterol measurement 10 mg/dL 5-40 [facility] VLDL Cholesterol 10 mg/dL 5-40 [facility] 12 Lead EKGon 06-25-2024 12 Lead EKG Normal [facility] 12 Lead EKG Normal [facility] Bedside Glucoseon 06-25-2024 FINGERSTICK GLU 305 mg/dL High 74-106 [facility] Comment on above: Result Comment: MARIUM JERRYENT OF PATIENT CARE PER NURSING PROTOCOL Performed By: #### L 501.080 ####[facility] [address] [place], [place], [address] FINGERSTICK GLU 194 mg/dL High 74-106 [facility] Comment on above: Result Comment: MARIUM GEMENT OF PATIENT CARE PER NURSING PROTOCOL Performed By: #### L 501.080 ####[facility] [address] [place], [address] FINGERSTICK GLU 189 mg/dL High 74-106 [facility] Comment on above: Result Comment: MARIUM GEMENT OF PATIENT CARE PER NURSING PROTOCOL Performed By: #### L 501.080 ####[facility] [address] [place], [address] CBC W/Diff, Automatedon 06-04 PLT EST ADEQUATE Normal ADEQ [facility] Comment on above: Performed By: #### L 500.4050, L100.0100 ####[facility] [address] [place], [address] PLT TNP Normal 150-450 [facility] Comment on above: Result Comment: Marcelle fritz note: For this sample, a platelet estimate isprovided rather than a platelet count due to plateletclumping. Other parameters associated with this sample arenot affected by platelet clumping. If a more accurateplatelet count is required, a redraw of the patient will benecessary. Performed By: #### L 500.4050, L100.0100 ####[facility] [address] [place], [address] Cardiac Cath Interventionon 06-25-2024 Cardiac Cath Intervention Normal [facility] Comprehensive Metabolic Prof ilon 06-25-2024 Albumin [Mass/Vol] 2.8 g/dL Low 3.2-5.[address] [facility] Comment on above: Performed By: #### L 500.4050, L100.0100 ####[facility] [address] [place], [address] Albumin/Globulin [Mass ratio] 0.7 {ratio} Low 0.9-2.4 [facility] Comment on above: Performed By: #### L 500.4050, L100.0100 ####[facility] [address] [place], [address] ALK P 98 U/L Normal 45-117 [facility] Comment on above: Performed By: #### L 500.4050, L100.0100 ####[facility] [address] [place], [address] ALT [Catalytic activity/Vol] 34 U/L Normal 16-61 [facility] Comment on above: Performed By: #### L 500.4050, L100.0100 ####[facility] [address] [place], [address] AST [Catalytic activity/Vol] 33 U/L Normal 15-37 [facility] Comment on above: Performed By: #### L 500.4050, L100.0100 ####[facility] [address] [place], [address] Bilirubin [Mass/Vol] 0.70 mg/dL Normal 0.20-1.00 [facility] Comment on above: Result Comment: For patients on eltrombopag therapy, use of Dimension [place] TBIL is not recommended. Performed By: #### L 500.4050, L100.0100 ####[facility] [address] [place], [address] BUN/CRE 24.0 RATIO High 10-20 [facility] Comment on above: Performed By: #### L 500.4050, L100.0100 ####[facility] [address] [place], [address] CA,Total 8.7 mg/dL Normal 8.5-10.1 [facility] Comment on above: Performed By: #### L 500.4050, L100.0100 ####[facility] [address] [place], [address] Chloride [Moles/Vol] 109 mmol/L High 98-107 [facility] Comment on above: Performed By: #### L 500.4050, L100.0100 ####[facility] [address] [place], [address] CO2 [Moles/Vol] 26.0 mmol/L Normal 21.0-32.0 [facility] Comment on above: Performed By: #### L 500.4050, L100.0100 ####[facility] [address] [place], [address] Creatinine [Mass/Vol] 0.83 mg/dL Normal 0.70-1.30 [facility] Comment on above: Result Comment: The validity of the calculated GFR GFRAA in patients over70 years has not been determined. Clinical correlation isessential. Performed By: #### L 500.4050, L100.0100 ####[facility] [address] [place], [address] ECRCL 101.08 ml/min Normal [facility] Comment on above: Performed By: #### L 500.4050, L100.0100 ####[facility] [address] [place], [address] EST GFR - AA 115 mL/min Normal >60 [facility] Comment on above: Result Comment: Afri can Russian GFR Calc Performed By: #### L 500.4050, L100.0100 ####[facility] [address] [place], [address] GAP 6 Normal 5-15 [facility] Comment on above: Performed By: #### L 500.4050, L100.0100 ####[facility] [address] [place], [address] GFR/1.73 sq M.predicted among non-blacks MDRD (S/P/Bld) [Vol rate/Area] 95 mL/min/{1.73_m2} Normal >60 [facility] Comment on above: Result Comment: Non- GFR Calc Performed By: #### L 500.4050, L100.0100 ####[facility] [address] [place], [address] Globulin (S) [Mass/Vol] 4.0 g/dL Normal 2.2-4.2 [facility] Comment on above: Performed By: #### L 500.4050, L100.0100 ####[facility] [address] [place], [address] Glucose [Mass/Vol] 171 mg/dL High 74-[address] [facility] Comment on above: Result Comment: Fast ing Glucose result greater than or equal to 126 mg/dLsuggests DIABETES MELLITUS per A.D.A. criteria. Performed By: #### L 500.4050, L100.0100 ####[facility] [address] [place], [address] Potassium [Moles/Vol] 4.2 mmol/L Normal 3.5-5.1 [facility] Comment on above: Performed By: #### L 500.4050, L100.0100 ####[facility] [address] [place], [address] Sodium [Moles/Vol] 141 mmol/L Normal 136-[address] [facility] Comment on above: Performed By: #### L 500.4050, L100.0100 ####[facility] [address] [place], [address] T PROT 6.8 g/dL Normal 6.4-8.2 [facility] Comment on above: Performed By: #### L 500.4050, L100.0100 ####[facility] [address] [place], [address] Urea nitrogen [Mass/Vol] 20 mg/dL High 7-18 [facility] Comment on above: Performed By: #### L 500.4050, L100.0100 ####[facility] [address] [place], [place], [address] Consultation - Cardiologyon 06-25-2024 Consultation - Cardiology Normal [facility] Mean platelet volume determi nationOrdered By: Jessi Kaur on 06-25-2024 Mean Platelet Volume TNP [facility] Comment on above: Test not performed Modified Barium Swallow Stud yon 06-25-2024 Modified Barium Swallow Study Normal [facility] Serum or plasma trough vanco mycin levelOrdered By: Jessi Kaur on 06-25-2024 Vancomycin trough [Mass/Vol] 21.4 ug/mL High 5.0-15.0 [facility] Vancomycin trough [Mass/Vol] Ordered By: Jessi Kaur on 06-25-2024 Vancomycin Level Trough 21.4 ug/mL High 5.0-15.0 [facility] Comment on above: VANCOMYCIN STANDARED DRUG THERAPY TROUGH LEVEL: 5.0 - 15.0 mg/L VANCOMYCIN HIGH INTENSITY THERAPY TROUGH LEVEL: 15.0 - 20.0 mg/L High Intensity therapy recommended for serious lifethreatening infections include:- Hmkmbbruuk-Dtfhgxvyhoox-Nbrmgbilm (Ventilator/Healtcare Associated)-Sepsis PLEASE CONTACT PHARMACY SERVICES (#[id number]) FOR INTERPRETATIONOF RESULTS. Vancomycin, Trough Levelon 0 06-25-2024 VANCO, TROUGH 21.4 ug/mL High 5.0-15.0 [facility] Comment on above: Order Comment: Comme nts: Trough to be drawn 30 mins prior to scheduled [id number] Result Comment: VANC OMYCIN STANDARED DRUG THERAPY TROUGH LEVEL: 5.0 - 15.0 mg/LVANCOMYCIN HIGH INTENSITY THERAPY TROUGH LEVEL: 15.0 - 20.0 mg/LHigh Intensity therapy recommended for serious lifethreatening infections include:- Jqkicuszhz-Iyisrdenhghj-Zcfluqovu (Ventilator/Healtcare Associated)-SepsisPLEASE CONTACT PHARMACY SERVICES (#[id number]) FOR INTERPRETATIONOF RESULTS. Performed By: #### L 501.8820 ####[facility] [address] [place], [place], [address] 12 Lead EKGon 01-22-2025 12 Lead EKG Normal [facility] 12 Lead EKG Normal [facility] Basic Metabolic Profile (BMP )on 06-24-2024 BUN/CRE 20.8 RATIO High 10-20 [facility] Comment on above: Order Comment: 1Y Performed By: #### L 501.5425, L100.0100, L500.2500 ####[facility] [address] [place], [address] CA,Total 9.3 mg/dL Normal 8.5-10.1 [facility] Comment on above: Order Comment: 1Y Performed By: #### L 501.5425, L100.0100, L500.2500 ####[facility] [address] [place], [address] Chloride [Moles/Vol] 100 mmol/L Normal 98-107 [facility] Comment on above: Order Comment: 1Y Performed By: #### L 501.5425, L100.0100, L500.2500 ####[facility] [address] [place], [address] CO2 [Moles/Vol] 27.0 mmol/L Normal 21.0-32.0 [facility] Comment on above: Order Comment: 1Y Performed By: #### L 501.5425, L100.0100, L500.2500 ####[facility] [address] [place], [address] Creatinine [Mass/Vol] 1.01 mg/dL Normal 0.70-1.30 [facility] Comment on above: Order Comment: 1Y Result Comment: The validity of the calculated GFR GFRAA in patients over70 years has not been determined. Clinical correlation isessential. Performed By: #### L 501.5425, L100.0100, L500.2500 ####[facility] [address] [place], [address] ECRCL 83.13 ml/min Normal [facility] Comment on above: Order Comment: 1Y Performed By: #### L 501.5425, L100.0100, L500.2500 ####[facility] [address] [place], [address] EST GFR - AA 92 mL/min Normal >60 [facility] Comment on above: Order Comment: 1Y Result Comment: Afri can Russian GFR Calc Performed By: #### L 501.5425, L100.0100, L500.2500 ####[facility] [address] [place], [address] GAP 9 Normal 5-15 [facility] Comment on above: Order Comment: 1Y Performed By: #### L 501.5425, L100.0100, L500.2500 ####[facility] [address] [place], [address] GFR/1.73 sq M.predicted among non-blacks MDRD (S/P/Bld) [Vol rate/Area] 76 mL/min/{1.73_m2} Normal >60 [facility] Comment on above: Order Comment: 1Y Result Comment: Non- GFR Calc Performed By: #### L 501.5425, L100.0100, L500.2500 ####[facility] [address] [place], [address] Glucose [Mass/Vol] 198 mg/dL High 74-[address] [facility] Comment on above: Order Comment: 1Y Result Comment: Fast ing Glucose result greater than or equal to 126 mg/dLsuggests DIABETES MELLITUS per A.D.A. criteria. Performed By: #### L 501.5425, L100.0100, L500.2500 ####[facility] [address] [place], [address] Potassium [Moles/Vol] 3.9 mmol/L Normal 3.5-5.1 [facility] Comment on above: Order Comment: 1Y Result Comment: Slig ht Hemolysis, Result may be falsely increased. Performed By: #### L 501.5425, L100.0100, L500.2500 ####[facility] [address] [place], [address] Sodium [Moles/Vol] 136 mmol/L Normal 136-[address] [facility] Comment on above: Order Comment: 1Y Performed By: #### L 501.5425, L100.0100, L500.2500 ####[facility] [address] [place], [address] Urea nitrogen [Mass/Vol] 21 mg/dL High 7-18 [facility] Comment on above: Order Comment: 1Y Performed By: #### L 501.5425, L100.0100, L500.2500 ####[facility] [address] [place], [address] Bedside Glucoseon 06-24-2024 FINGERSTICK GLU 149 mg/dL High 74-106 [facility] Comment on above: Result Comment: MARIUM GEMENT OF PATIENT CARE PER NURSING PROTOCOL Performed By: #### L 501.080 ####[facility] [address] [place], [address] FINGERSTICK GLU 166 mg/dL High 74-106 [facility] Comment on above: Result Comment: MARIUM GEMENT OF PATIENT CARE PER NURSING PROTOCOL Performed By: #### L 501.080 ####[facility] [address] [place], [address] FINGERSTICK GLU 150 mg/dL High 74-106 [facility] Comment on above: Result Comment: MARIUM GEMENT OF PATIENT CARE PER NURSING PROTOCOL Performed By: #### L 501.080 ####[facility] [address] [place], [address] FINGERSTICK GLU 157 mg/dL High 74-106 [facility] Comment on above: Result Comment: MARIUM GEMENT OF PATIENT CARE PER NURSING PROTOCOL Performed By: #### L 501.080 ####[facility] [address] [place], [address] Blood cultureOrdered By: Dayana Jama on 06-24-2024 Bacteria identified Cx Nom (Bld) No growth in 5 days. [facility] CBC W/Diff, Automatedon 06-04 PLT EST A Normal ADEQ [facility] Comment on above: Performed By: #### L 501.5425, L100.0100, L500.2500 ####[facility] [address] [place], [address] PLT MORPH CLUMPED Normal [facility] Comment on above: Performed By: #### L 501.5425, L100.0100, L500.2500 ####[facility] [address] [place], [address] Absolute Neut Normal 2.0-7.7 [facility] Comment on above: Result Comment: Canc elled via OM: Duplicate Order Performed By: #### L 100.0100 ####[facility] [address] [place], [address] HCT Normal 40-54 [facility] Comment on above: Result Comment: Canc elled via OM: Duplicate Order Performed By: #### L 100.0100 ####[facility] [address] [place], [address] HGB Normal 13.0-16.5 [facility] Comment on above: Result Comment: Canc elled via OM: Duplicate Order Performed By: #### L 100.0100 ####[facility] [address] [place], [address] MCH Normal 27.0-32.0 [facility] Comment on above: Result Comment: Canc elled via OM: Duplicate Order Performed By: #### L 100.0100 ####[facility] [address] [place], [address] MCHC Normal 32-36 [facility] Comment on above: Result Comment: Canc elled via OM: Duplicate Order Performed By: #### L 100.0100 ####[facility] [address] [place], [address] MCV Normal 80-94 [facility] Comment on above: Result Comment: Canc elled via OM: Duplicate Order Performed By: #### L 100.0100 ####[facility] [address] [place], [address] NEUT% Normal 47-70 [facility] Comment on above: Result Comment: Canc elled via OM: Duplicate Order Performed By: #### L 100.0100 ####[facility] [address] [place], [address] PLT Normal 150-450 [facility] Comment on above: Result Comment: Canc elled via OM: Duplicate Order Performed By: #### L 100.0100 ####[facility] [address] [place], [address] RBC Normal 4.6-6.2 [facility] Comment on above: Result Comment: Canc elled via OM: Duplicate Order Performed By: #### L 100.0100 ####[facility] [address] [place], [address] RDW CV Normal 11.6-14.6 [facility] Comment on above: Result Comment: Canc elled via OM: Duplicate Order Performed By: #### L 100.0100 ####[facility] [address] [place], [address] RDW SD Normal 35.1-43.9 [facility] Comment on above: Result Comment: Canc elled via OM: Duplicate Order Performed By: #### L 100.0100 ####[facility] [address] [place], [address] WBC Normal 4.4-11.0 [facility] Comment on above: Result Comment: Canc elled via OM: Duplicate Order Performed By: #### L 100.0100 ####[facility] [address] [place], [address] Chest 1 View (Portable)on Chest 1 View (Portable) Normal [facility] Echo Complete W/ Contraston 06-24-2024 Echo Complete W/ Contrast Normal [facility] Emergency Department Summary on 06-24-2024 Emergency Department Summary Normal [facility] H AND P Exam - Hospitaliston 06-24-2024 H&P Exam - Hospitalist Normal [facility] Influenza virus A and B and SARS-CoV-2 (COVID-19) and Respiratory syncytial virus RNAOrdered By: Jessi Kaur on 06-24-2024 SARS-CoV-2 (COVID-19) RNA ZOE+probe Ql (Unsp spec) [facility] L. pneumophila Ag Ql (U)Orde red By: Jessi Kaur on 06-24-2024 Legionella Antigen [facility] L501.4020on 06-24-2024 TROPONIN-I HS 417 pg/mL Invalid Interpretation Code 3.0-78.0 [facility] Comment on above: Order Comment: Comme nts: SPECIMEN #3'TROP' Serial specimen #1, #2 or #3: 3Comments: add on please3 Result Comment: Crit ical Result(s) Called at: 17:18:34 06/24/2024 by: SERENITY. Results read back by Jacinda Gillis Please Note: New Test Units and Gender Specific Reference Ranges. For more information see Policy Stat Procedure [place] High Sensitivity Troponin (TNIH) and attachments. Performed By: #### L 501.4020 ####[facility] [address] [place], [place], [address] TROPONIN-I HS 260 pg/mL Invalid Interpretation Code 3.0-78.0 [facility] Comment on above: Order Comment: Comme nts: SPECIMEN #2'TROP' Serial specimen #1, #2 or #3: 2 Result Comment: Crit ical Result(s) Called at: 13:28:45 06/24/2024 by:DELVIS CASANOVA TO [facility]. Results read back by same. Please Note: New Test Units and Gender Specific Reference Ranges. For more information see Policy Stat Procedure [place] High Sensitivity Troponin (TNIH) and attachments. Performed By: #### L 501.5200, L501.4020 ####[facility] [address] [place], [address] L501.5425on 06-24-2024 TROPONIN-I HS 109 pg/mL High 3.0-78.0 [facility] Comment on above: Order Comment: 1Y Result Comment: Plea se Note: New Test Units and Gender Specific Reference Ranges. For more information see Policy Stat Procedure [place] High Sensitivity Troponin (TNIH) and attachments. Performed By: #### L 501.5425, L100.0100, L500.2500 ####[facility] [address] [place], [address] Lactic Acidon 06-24-2024 Lactate [Moles/Vol] 1.4 mmol/L Normal 0.4-1.9 [facility] Comment on above: Performed By: #### L 503.6005 ####[facility] [address] [place], [address] Lactate [Moles/Vol] 2.4 mmol/L Invalid Interpretation Code 0.4-1.9 [facility] Comment on above: Order Comment: Comme nts: if result >2, system reflex orders 2nd test @ 4hrsY Result Comment: Crit ical Result(s) Called at: 13:27:25 06/24/2024 by:DELVIS CASANOVA TO [facility]. Results read back by same. Performed By: #### L 503.6005 ####[facility] [address] [place], [address] Lactate [Moles/Vol] 1.9 mmol/L Normal 0.4-1.9 [facility] Comment on above: Order Comment: Y Performed By: #### M 200.1000, L503.6005 ####[facility] [address] [place], [address] Lactic acid measurementOrder ed By: Jessi Kaur on 06-24-2024 Lactate [Moles/Vol] 1.4 mmol/L 0.4-2.0 [facility] Legionella Antigen Urineon 0 06-24-2024 LEGU Normal [facility] Comment on above: Performed By: #### M 300.4500, M300.4600 ####[facility] [address] [place], [address] M100.678on 06-24-2024 M100.678 Pending SARS-CoV-2 (COVID 19) Negative INFLUENZA A Negative INFLUENZA B Negative RSV PCR Negative [facility] Comment on above: Performed By: #### M 100.678 ####[facility] [address] [place], [address] Magnesiumon 06-24-2024 Magnesium [Mass/Vol] 1.9 mg/dL Normal 1.6-2.6 [facility] Comment on above: Order Comment: Comme nts: SPECIMEN #2'TROP' Serial specimen #1, #2 or #3: 22 Performed By: #### L 501.5200, L501.4020 ####[facility] [address] [place], [address] Strep pneumoniae Antig(UR,CS F)on 06-24-2024 STPAG [facility] Comment on above: Performed By: #### M 300.4500, M300.4600 ####[facility] [address] [place], [address] Streptococcus pneumoniae ant igen assayOrdered By: Jessi Kaur on 06-24-2024 Streptococcus pneumoniae Antigen (M [facility] Troponin IOrdered By: Jessi blake on 06-24-2024 Troponin I 417 pg/mL High 3.0-78.0 [facility] Troponin I High Sensitivity 417 pg/mL High 3.0-78.0 [facility] Comment on above: Critical Result(s) C alled at: 17:18:34 06/24/2024 by: ANN BILLS. Results read back by Jacinda Gillis Please Note: New Test Units and Gender Specific Reference Ranges. For more information see Policy Stat Procedure [place] High Sensitivity Troponin (TNIH) and attachments. Urine Legionella pneumophila antigen detectionOrdered By: Jessi Kaur on 06-24-2024 L. pneumophila Ag Ql (U) [facility] Emergency Department Summary on 05-25-2024 Emergency Department Summary Normal [facility] Spine Lumbar without Contras ton 05-25-2024 Spine Lumbar without Contrast Normal [facility] BNP,B-Type NATRIURETIC PEPTI Vale 03-22-2024 Natriuretic peptide B (Bld) [Mass/Vol] 118.9 pg/mL High 0-100 [facility] Comment on above: Performed By: #### L 501.5425, L503.6620, L500.2500, L100.0100 ####[facility] [address] [place], [address] Basic Metabolic Profile (BMP )on 03-22-2024 BUN/CRE 25.4 RATIO High 03-22 [facility] Comment on above: Order Comment: 1Y Performed By: #### L 501.5425, L503.6620, L500.2500, L100.0100 ####[facility] [address] [place], [address] CA,Total 9.2 mg/dL Normal 8.5-10.1 [facility] Comment on above: Order Comment: 1Y Performed By: #### L 501.5425, L503.6620, L500.2500, L100.0100 ####[facility] [address] [place], [address] Chloride [Moles/Vol] 107 mmol/L Normal 98-107 [facility] Comment on above: Order Comment: 1Y Performed By: #### L 501.5425, L503.6620, L500.2500, L100.0100 ####[facility] [address] [place], [address] CO2 [Moles/Vol] 30.0 mmol/L Normal 21.0-32.0 [facility] Comment on above: Order Comment: 1Y Performed By: #### L 501.5425, L503.6620, L500.2500, L100.0100 ####[facility] [address] [place], [address] Creatinine [Mass/Vol] 0.71 mg/dL Normal 0.70-1.30 [facility] Comment on above: Order Comment: 1Y Result Comment: The validity of the calculated GFR GFRAA in patients over70 years has not been determined. Clinical correlation isessential. Performed By: #### L 501.5425, L503.6620, L500.2500, L100.0100 ####[facility] [address] [place], [address] ECRCL 106.35 ml/min Normal [facility] Comment on above: Order Comment: 1Y Performed By: #### L 501.5425, L503.6620, L500.2500, L100.0100 ####[facility] [address] [place], [address] EST GFR - AA 139 mL/min Normal >60 [facility] Comment on above: Order Comment: 1Y Result Comment: Afri can Russian GFR Calc Performed By: #### L 501.5425, L503.6620, L500.2500, L100.0100 ####[facility] [address] [place], [address] GAP 4 Low 5-15 [facility] Comment on above: Order Comment: 1Y Performed By: #### L 501.5425, L503.6620, L500.2500, L100.0100 ####[facility] [address] [place], [address] GFR/1.73 sq M.predicted among non-blacks MDRD (S/P/Bld) [Vol rate/Area] 115 mL/min/{1.73_m2} Normal >60 [facility] Comment on above: Order Comment: 1Y Result Comment: Non- GFR Calc Performed By: #### L 501.5425, L503.6620, L500.2500, L100.0100 ####[facility] [address] [place], [address] Glucose [Mass/Vol] 160 mg/dL High 74-[address] [facility] Comment on above: Order Comment: 1Y Result Comment: Fast ing Glucose result greater than or equal to 126 mg/dLsuggests DIABETES MELLITUS per A.D.A. criteria. Performed By: #### L 501.5425, L503.6620, L500.2500, L100.0100 ####[facility] [address] [place], [address] Potassium [Moles/Vol] 3.5 mmol/L Normal 3.5-5.1 [facility] Comment on above: Order Comment: 1Y Performed By: #### L 501.5425, L503.6620, L500.2500, L100.0100 ####[facility] [address] [place], [address] Sodium [Moles/Vol] 141 mmol/L Normal 136-[address] [facility] Comment on above: Order Comment: 1Y Performed By: #### L 501.5425, L503.6620, L500.2500, L100.0100 ####[facility] [address] [place], [address] Urea nitrogen [Mass/Vol] 18 mg/dL Normal 7-18 [facility] Comment on above: Order Comment: 1Y Performed By: #### L 501.5425, L503.6620, L500.2500, L100.0100 ####[facility] [address] [place], [address] CBC W/Diff, Automatedon 03-04 PLT EST ADEQUATE Normal ADEQ [facility] Comment on above: Performed By: #### L 501.5425, L503.6620, L500.2500, L100.0100 ####[facility] [address] [place], [address] SMEAR COMMENT SCANNED Normal [facility] Comment on above: Performed By: #### L 501.5425, L503.6620, L500.2500, L100.0100 ####[facility] [address] [place], [address] Chest PA and Lateralon 03-22 Chest PA and Lateral Normal [facility] Emergency Department Summary on 03-22-2024 Emergency Department Summary Normal [facility] L501.4020on 03-22-2024 TROPONIN-I HS 74 pg/mL Normal 3.0-78.0 [facility] Comment on above: Result Comment: Plea se Note: New Test Units and Gender Specific Reference Ranges. For more information see Policy Stat Procedure [place] High Sensitivity Troponin (TNIH) and attachments. Performed By: #### L 501.4020 ####[facility] [address] [place], [address] L501.5425on 03-22-2024 TROPONIN-I HS 81 pg/mL High 3.0-78.0 [facility] Comment on above: Order Comment: 1Y Result Comment: Plea se Note: New Test Units and Gender Specific Reference Ranges. For more information see Policy Stat Procedure [place] High Sensitivity Troponin (TNIH) and attachments. Performed By: #### L 501.5425, L503.6620, L500.2500, L100.0100 ####[facility] [address] [place], [address] M100.678on 03-22-2024 M100.678 Pending SARS-CoV-2 (COVID 19) Negative INFLUENZA A Negative INFLUENZA B Negative RSV PCR Negative Normal [facility] Comment on above: Performed By: #### M 100.678 ####[facility] [address] [place], [address] Cardiology Visit Reporton Cardiology Visit Report Normal [facility] CBC W/Diff, Automatedon 12-02 PLT TNP Normal 150-450 [facility] Comment on above: Order Comment: Order [...] By: #### L 506.1000, L500.4050, L100.0100, L501.5200 ####[facility] [address] [place], [address] Absolute Lymph 2.11 X10 3/uL Normal 0.83-4.51 [facility] Comment on above: Order Comment: Order Date: 12/23/23Order Info: [id number] - CBCD Performed By: #### L 506.1000, L500.4050, L100.0100, L501.5200 ####[facility] [address] [place], [address] Absolute Neut 3.6 X10 3/uL Normal 2.0-7.7 [facility] Comment on above: Order Comment: Order Date: 12/23/23Order Info: [id number] - CBCD Performed By: #### L 506.1000, L500.4050, L100.0100, L501.5200 ####[facility] [address] [place], [address] Basophils/100 WBC (Bld) 0.5 % Normal 0-1 [facility] Comment on above: Order Comment: Order Date: 12/23/23Order Info: [id number] - CBCD Performed By: #### L 506.1000, L500.4050, L100.0100, L501.5200 ####[facility] [address] [place], [address] Eosinophils/100 WBC (Bld) 1.7 % Normal 0-5 [facility] Comment on above: Order Comment: Order Date: 12/23/23Order Info: [id number] - CBCD Performed By: #### L 506.1000, L500.4050, L100.0100, L501.5200 ####[facility] [address] [place], [address] Erythrocyte distribution width (RBC) [Ratio] 13.7 % Normal 11.6-14.6 [facility] Comment on above: Order Comment: Order Date: 12/23/23Order Info: [id number]- - CBCD Performed By: #### L 506.1000, L500.4050, L100.0100, L501.5200 ####[facility] [address] [place], [address] Hematocrit (Bld) [Volume fraction] 39.0 % Low 40-54 [facility] Comment on above: Order Comment: Order Date: 12/23/23Order Info: [id number] - CBCD Performed By: #### L 506.1000, L500.4050, L100.0100, L501.5200 ####[facility] [address] [place], [address] Hemoglobin (Bld) [Mass/Vol] 12.4 g/dL Low 13.0-16.5 [facility] Comment on above: Order Comment: Order Date: 12/23/23Order Info: [id number] - CBCD Performed By: #### L 506.1000, L500.4050, L100.0100, L501.5200 ####[facility] [address] [place], [address] IG% 0.600 Normal 0.0-0.9 [facility] Comment on above: Order Comment: Order Date: 12/23/23Order Info: [id number]- - CBCD Result Comment: IG% - Immature Granulocytes (promyelocytes, myelocytes andmetamyelocytes) > 1% indicates that a LEFT SHIFT is Present. Performed By: #### L 506.1000, L500.4050, L100.0100, L501.5200 ####[facility] [address] [place], [address] Lymphocytes/100 WBC (Bld) 32.2 % Normal 19-41 [facility] Comment on above: Order Comment: Order Date: 12/23/23Order Info: [id number]- - CBCD Performed By: #### L 506.1000, L500.4050, L100.0100, L501.5200 ####[facility] [address] [place], [address] MCH (RBC) [Entitic mass] 30.8 pg Normal 27.0-32.0 [facility] Comment on above: Order Comment: Order Date: 12/23/23Order Info: [id number]- - CBCD Performed By: #### L 506.1000, L500.4050, L100.0100, L501.5200 ####[facility] [address] [place], [address] MCHC (RBC) [Mass/Vol] 31.8 g/dL Low 32-36 [facility] Comment on above: Order Comment: Order Date: 12/23/23Order Info: [id number]- - CBCD Performed By: #### L 506.1000, L500.4050, L100.0100, L501.5200 ####[facility] [address] [place], [address] MCV (RBC) [Entitic vol] 96.8 fL High 80-94 [facility] Comment on above: Order Comment: Order Date: 12/23/23Order Info: [id number] - CBCD Performed By: #### L 506.1000, L500.4050, L100.0100, L501.5200 ####[facility] [address] [place], [address] Monocytes/100 WBC (Bld) 10.2 % High 0-10 [facility] Comment on above: Order Comment: Order Date: 12/23/23Order Info: [id number] - CBCD Performed By: #### L 506.1000, L500.4050, L100.0100, L501.5200 ####[facility] [address] [place], [address] Neutrophils/100 WBC (Bld) 54.8 % Normal 47-70 [facility] Comment on above: Order Comment: Order Date: 12/23/23Order Info: [id number]- - CBCD Performed By: #### L 506.1000, L500.4050, L100.0100, L501.5200 ####[facility] [address] [place], [address] Nucleated RBC (Bld) [#/Vol] 0 10*3/uL Normal 0-5 [facility] Comment on above: Order Comment: Order Date: 12/23/23Order Info: [id number] - CBCD Performed By: #### L 506.1000, L500.4050, L100.0100, L501.5200 ####[facility] [address] [place], [address] Platelet mean volume (Bld) [Entitic vol] 14.4 fL High 6.2-12.0 [facility] Comment on above: Order Comment: Order Date: 12/23/23Order Info: [id number] - CBCD Performed By: #### L 506.1000, L500.4050, L100.0100, L501.5200 ####[facility] [address] [place], [address] RBC (Bld) [#/Vol] 4.03 10*6/uL Low 4.6-6.2 [facility] Comment on above: Order Comment: Order Date: 12/23/23Order Info: [id number] - CBCD Performed By: #### L 506.1000, L500.4050, L100.0100, L501.5200 ####[facility] [address] [place], [address] RDW SD 49.1 fl High 35.1-43.9 [facility] Comment on above: Order Comment: Order Date: 12/23/23Order Info: [id number] - CBCD Performed By: #### L 506.1000, L500.4050, L100.0100, L501.5200 ####[facility] [address] [place], [address] WBC (Bld) [#/Vol] 6.6 10*3/uL Normal 4.4-11.[address] [facility] Comment on above: Order Comment: Order Date: 12/23/23Order Info: [id number] - CBCD Performed By: #### L 506.1000, L500.4050, L100.0100, L501.5200 ####[facility] [address] [place], [address] Comprehensive Metabolic Prof [facility] 12-23-2023 Albumin [Mass/Vol] 3.2 g/dL Normal 3.2-5.[address] [facility] Comment on above: Order Comment: Order Date: 12/23/23Order Info: [id number] - CMPOrder Info: [id number] - MG Performed By: #### L 506.1000, L500.4050, L100.0100, L501.5200 ####[facility] [address] [place], [address] Albumin/Globulin [Mass ratio] 0.8 {ratio} Low 0.9-2.4 [facility] Comment on above: Order Comment: Order Date: 12/23/23Order Info: [id number] - CMPOrder Info: [id number] - MG Performed By: #### L 506.1000, L500.4050, L100.0100, L501.5200 ####[facility] [address] [place], [address] ALK P 78 U/L Normal 45-117 [facility] Comment on above: Order Comment: Order Date: 12/23/23Order Info: [id number] - CMPOrder Info: [id number] - MG Performed By: #### L 506.1000, L500.4050, L100.0100, L501.5200 ####[facility] [address] [place], [address] ALT [Catalytic activity/Vol] 25 U/L Normal 16-61 [facility] Comment on above: Order Comment: Order Date: 12/23/23Order Info: [id number] - CMPOrder Info: [id number] - MG Performed By: #### L 506.1000, L500.4050, L100.0100, L501.5200 ####[facility] [address] [place], [address] AST [Catalytic activity/Vol] 15 U/L Normal 15-37 [facility] Comment on above: Order Comment: Order Date: 12/23/23Order Info: [id number] - CMPOrder Info: [id number] - MG Performed By: #### L 506.1000, L500.4050, L100.0100, L501.5200 ####[facility] [address] [place], [address] Bilirubin [Mass/Vol] 0.60 mg/dL Normal 0.20-1.00 [facility] Comment on above: Order Comment: Order Date: 12/23/23Order Info: [id number] - CMPOrder Info: [id number] - MG Result Comment: For patients on eltrombopag therapy, use of Dimension [place] TBIL is not recommended. Performed By: #### L 506.1000, L500.4050, L100.0100, L501.5200 ####[facility] [address] [place], [address] BUN/CRE 23.0 RATIO High 10-20 [facility] Comment on above: Order Comment: Order Date: 12/23/23Order Info: [id number] - CMPOrder Info: [id number] - MG Performed By: #### L 506.1000, L500.4050, L100.0100, L501.5200 ####[facility] [address] [place], [address] CA,Total 9.3 mg/dL Normal 8.5-10.1 [facility] Comment on above: Order Comment: Order Date: 12/23/23Order Info: [id number] - CMPOrder Info: [id number] - MG Performed By: #### L 506.1000, L500.4050, L100.0100, L501.5200 ####[facility] [address] [place], [address] Chloride [Moles/Vol] 105 mmol/L Normal 98-107 [facility] Comment on above: Order Comment: Order Date: 12/23/23Order Info: [id number] - CMPOrder Info: [id number] - MG Performed By: #### L 506.1000, L500.4050, L100.0100, L501.5200 ####[facility] [address] [place], [address] CO2 [Moles/Vol] 29.0 mmol/L Normal 21.0-32.0 [facility] Comment on above: Order Comment: Order Date: 12/23/23Order Info: [id number] - CMPOrder Info: [id number] - MG Performed By: #### L 506.1000, L500.4050, L100.0100, L501.5200 ####[facility] [address] [place], [address] Creatinine [Mass/Vol] 0.91 mg/dL Normal 0.70-1.30 [facility] Comment on above: Order Comment: Order Date: 12/23/23Order Info: [id number] - CMPOrder Info: [id number] - MG Result Comment: The validity of the calculated GFR GFRAA in patients over70 years has not been determined. Clinical correlation isessential. Performed By: #### L 506.1000, L500.4050, L100.0100, L501.5200 ####[facility] [address] [place], [address] EST GFR - AA 104 mL/min Normal >60 [facility] Comment on above: Order Comment: Order Date: 12/23/23Order Info: [id number] - CMPOrder Info: [id number] - MG Result Comment: Afri can [place] GFR Calc Performed By: #### L 506.1000, L500.4050, L100.0100, L501.5200 ####[facility] [address] [place], [address] GAP 4 Low 5-15 [facility] Comment on above: Order Comment: Order Date: 12/23/23Order Info: [id number] - CMPOrder Info: [id number] - MG Performed By: #### L 506.1000, L500.4050, L100.0100, L501.5200 ####[facility] [address] [place], [address] GFR/1.73 sq M.predicted among non-blacks MDRD (S/P/Bld) [Vol rate/Area] 86 mL/min/{1.73_m2} Normal >60 [facility] Comment on above: Order Comment: Order Date: 12/23/23Order Info: [id number] - CMPOrder Info: [id number] - MG Result Comment: Non- GFR Calc Performed By: #### L 506.1000, L500.4050, L100.0100, L501.5200 ####[facility] [address] [place], [address] Globulin (S) [Mass/Vol] 4.1 g/dL Normal 2.2-4.2 [facility] Comment on above: Order Comment: Order Date: 12/23/23Order Info: [id number]- - CMPOrder Info: [id number] - MG Performed By: #### L 506.1000, L500.4050, L100.0100, L501.5200 ####[facility] [address] [place], [address] Glucose [Mass/Vol] 232 mg/dL High 74-[address] [facility] Comment on above: Order Comment: Order Date: 12/23/23Order Info: [id number] - CMPOrder Info: [id number] - MG Result Comment: Gluc ose result greater than or equal to 200 mg/dLsuggests DIABETES MELLITUS per A.D.A. criteria. Performed By: #### L 506.1000, L500.4050, L100.0100, L501.5200 ####[facility] [address] [place], [address] Potassium [Moles/Vol] 4.3 mmol/L Normal 3.5-5.1 [facility] Comment on above: Order Comment: Order Date: 12/23/23Order Info: [id number]- - CMPOrder Info: [id number] - MG Performed By: #### L 506.1000, L500.4050, L100.0100, L501.5200 ####[facility] [address] [place], [address] Sodium [Moles/Vol] 138 mmol/L Normal 136-[address] [facility] Comment on above: Order Comment: Order Date: 12/23/23Order Info: [id number]- - CMPOrder Info: [id number] - MG Performed By: #### L 506.1000, L500.4050, L100.0100, L501.5200 ####[facility] [address] [place], [address] T PROT 7.3 g/dL Normal 6.4-8.2 [facility] Comment on above: Order Comment: Order Date: 12/23/23Order Info: [id number] - CMPOrder Info: [id number] - MG Performed By: #### L 506.1000, L500.4050, L100.0100, L501.5200 ####[facility] [address] [place], [address] Urea nitrogen [Mass/Vol] 21 mg/dL High 7-18 [facility] Comment on above: Order Comment: Order Date: 12/23/23Order Info: [id number] - CMPOrder Info: [id number] - MG Performed By: #### L 506.1000, L500.4050, L100.0100, L501.5200 ####[facility] [address] [place], [address] Magnesiumon 12-23-2023 Magnesium [Mass/Vol] 2.1 mg/dL Normal 1.6-2.6 [facility] Comment on above: Order Comment: Order Date: 12/23/23Order Info: [id number] - CMPOrder Info: [id number] - MG Performed By: #### L 506.1000, L500.4050, L100.0100, L501.5200 ####[facility] [address] [place], [address] Vitamin D,25 Hydroxyon 12-22 Vitamin D 25-OH 36.4 ng/mL Normal [facility] Comment on above: Order Comment: Order Date: 12/23/23Order Info: [id number] - [id number] Result Comment: Tanja min D 25(OH) Status Range Deficiency <20 ng/mL (50nmol/L) Insufficiency 20 - 30 ng/mL (50 - 75 nmol/L) Sufficiency 30 - 100 ng/mL (75 - 250 nmol/L) Toxicity >100 ng/mL (>250 nmol/L) Performed By: #### L 506.1000, L500.4050, L100.0100, L501.5200 ####[facility] [address] [place], [address] No Panel InformationOrdered By: Jessi Olguin on 05-13-2023 Urine Microalbumin/Creatinin e Ratio 6.5 mg/g CRE <30 [facility] Thin prep Papanicolaou smear with manual screeningOrdered By: Jessi Olguin on 05-13-2023 Thin prep Papanicolaou smear with manual screening 9.3 mg/L NO RANGE EST. [facility] Urine creatinine measurement (mass/volume)Ordered By: Jessi Olguin on 05-13-2023 Creatinine (U) [Mass/Vol] 143.00 mg/dL NO RANGE EST. [facility] Absolute lymphocyte countOrd ered By: Jessi Olguin on 05-09-2023 Lymphocytes Auto (Unsp spec) [#/Vol] 2.12 10*3/uL 0.83-4.51 [facility] Basophil percentageOrdered B y: Jessi Olguin on 05-09-2023 Basophils/100 WBC (Bld) 0.6 % 0-1 [facility] Bilirubin [Mass/Vol] 0.70 mg/dL 0.20-1.00 [facility] Comment on above: For patients on eltr ombopag therapy, use of Dimension [place] TBIL is not recommended. Chloride [Moles/Vol] 107 mmol/L 98-107 [facility] Eosinophils/100 WBC (Bld) 2.0 % 0-5 [facility] Glucose [Mass/Vol] 119 mg/dL 74-[address] [facility] Comment on above: Fasting Glucose resu lt from 100 to 125 mg/dL suggests IMPAIRED HOMEOSTASIS per A.D.A. criteria. Neutrophils (Bld) [#/Vol] 3.6 10*3/uL 2.0-7.7 [facility] Neutrophils/100 WBC (Bld) 55.0 % 47-70 [facility] Potassium [Moles/Vol] 4.1 mmol/L 3.5-5.1 [facility] Protein [Mass/Vol] 7.3 g/dL 6.4-8.[address] [facility] Sodium [Moles/Vol] 138 mmol/L 136-[address] [facility] WBC (Bld) [#/Vol] 6.6 10*3/uL 4.4-11.[address] [facility] Blood erythrocytes count (nu mber/volume)Ordered By: Jessi Olguin on 05-09-2023 RBC (Bld) [#/Vol] 4.08 10*6/uL 4.6-6.2 [facility] Blood hemoglobin measurement (mass/volume)Ordered By: Jessi Olguin on 05-09-2023 Hemoglobin (Bld) [Mass/Vol] 12.5 g/dL 13.0-16.5 [facility] Blood lymphocytes/100 leukoc ytesOrdered By: Jessi Olguin on 05-09-2023 Lymphocytes/100 WBC (Bld) 32.1 % 19-41 [facility] Blood manual differential co mment interpretation (narrative result)Ordered By: Jessi Olguin on 05-09-2023 Manual differential comment Royer (Bld) [Interp] SCANNED [facility] Blood monocytes/100 leukocyt esOrdered By: Jessi Olguin on 05-09-2023 Monocytes/100 WBC (Bld) 9.7 % 0-10 [facility] Blood platelet adequacy dete ction by light microscopyOrdered By: Jessi Olguin on 05-09-2023 Platelets LM Ql (Bld) ADEQUATE ADEQ [facility] Determination of erythrocyte mean corpuscular volume (MCV)Ordered By: Jessi Olguin on 05-09-2023 MCV (RBC) [Entitic vol] 95.6 fL 80-94 [facility] Hematocrit Auto (Bld) [Volum e fraction]Ordered By: Jessi Olguin on 05-09-2023 Hematocrit (Bld) [Volume fraction] 39.0 % 40-54 [facility] Laboratory - Chemistry and C hemistry - challengeOrdered By: Jessi Olguin on 05-09-2023 ALP [Catalytic activity/Vol] 74 U/L 45-117 [facility] ALT [Catalytic activity/Vol] 19 U/L 16-61 [facility] CO2 [Moles/Vol] 30.0 mmol/L 21.0-32.0 [facility] Globulin (S) [Mass/Vol] 3.9 g/dL 2.2-4.2 [facility] Urea nitrogen/Creatinine [Mass ratio] 20.8 mg/mg 10-20 [facility] Laboratory - Hematology and Cell countsOrdered By: Jessi Olguin on 05-09-2023 Erythrocyte distribution width (RBC) [Entitic vol] 49.8 fL 35.1-43.9 [facility] Erythrocyte distribution width (RBC) [Ratio] 14.2 % 11.6-14.6 [facility] Immature granulocytes/100 WBC (Bld) 0.600 % 0.0-0.9 [facility] Comment on above: IG% - Immature Granu locytes (promyelocytes, myelocytes and metamyelocytes) > 1% indicates that a LEFT SHIFT is Present. MCH (RBC) [Entitic mass] 30.6 pg 27.0-32.0 [facility] Nucleated RBC/100 WBC (Bld) [Ratio] 0 % 0-5 [facility] MCHC Auto (RBC) [Mass/Vol]Or dered By: Jessi Olguin on 05-09-2023 MCHC (RBC) [Mass/Vol] 32.1 g/dL 32-36 [facility] No Panel InformationOrdered By: Jessi Olguin on 05-09-2023 Estimated GFR (MDRD) Amer 127 mL/min >60 [facility] Comment on above: GFR Calc Estimated GFR (MDRD) Non-Af Amer 105 mL/min >60 [facility] Comment on above: Non- GFR Calc Platelets bldOrdered By: Ana Luisa Olguin on 05-09-2023 Platelets (Bld) [#/Vol] See comment 150-450 [facility] Comment on above: Please note: For thi [...] on 05-09-2023 Albumin [Mass/Vol] 3.4 g/dL 3.2-5.[address] [facility] Serum or plasma albumin/glob ulin mass ratioOrdered By: Jessi Olguin on 05-09-2023 Albumin/Globulin [Mass ratio] 0.9 {ratio} 0.9-2.4 [facility] Serum or plasma calcium shweta urement (mass/volume)Ordered By: Jessi Olguin on 05-09-2023 Calcium [Mass/Vol] 9.0 mg/dL 8.5-10.[address] [facility] Serum or plasma creatinine m easurement (mass/volume)Ordered By: Jessi Olguin on 05-09-2023 Creatinine [Mass/Vol] 0.77 mg/dL 0.70-1.30 [facility] Comment on above: The validity of the calculated GFR & GFRAA in patients over 70 years has not been determined. Clinical correlation is essential. Serum or plasma urea nitroge n measurement (mass/volume)Ordered By: Jessi Olguin on 05-09-2023 Urea nitrogen [Mass/Vol] 16 mg/dL 7-18 [facility] Thin prep Papanicolaou smear with manual screeningOrdered By: Jessi Olguin on 05-09-2023 Thin prep Papanicolaou smear with manual screening 14 U/L 15-37 [facility] Thin prep Papanicolaou smear with manual screening 1 5-15 [facility] Whole blood hemoglobin A1c/t otal hemoglobin ratio (mass fraction)Ordered By: Jessi Olguin on 05-09-2023 HbA1c (Bld) [Mass fraction] 6.5 % 3.8-5.6 [facility] Comment on above: Normal < 5.7 % Predi abetic 5.7 - 6.4 % Diabetic >or= 6.5 % Please note range changes. Absolute lymphocyte countOrd ered By: Dr. Olguin on 07-13-2022 Lymphocytes Auto (Unsp spec) [#/Vol] 2.25 10*3/uL 0.83-4.51 [facility] Basophil percentageOrdered B y: Dr. Olguin on 07-13-2022 Basophils/100 WBC (Bld) 0.3 % 0-1 [facility] Bilirubin [Mass/Vol] 0.90 mg/dL 0.20-1.00 [facility] Comment on above: For patients on eltr ombopag therapy, use of Dimension [place] TBIL is not recommended. Chloride [Moles/Vol] 104 mmol/L 98-107 [facility] Eosinophils/100 WBC (Bld) 1.8 % 0-5 [facility] Glucose [Mass/Vol] 170 mg/dL 74-[address] [facility] Comment on above: Fasting Glucose resu lt greater than or equal to 126 mg/dL suggests DIABETES MELLITUS per A.D.A. criteria. Neutrophils (Bld) [#/Vol] 4.1 10*3/uL 2.0-7.7 [facility] Neutrophils/100 WBC (Bld) 58.2 % 47-70 [facility] Potassium [Moles/Vol] 4.0 mmol/L 3.5-5.1 [facility] Protein [Mass/Vol] 7.1 g/dL 6.4-8.[address] [facility] Sodium [Moles/Vol] 140 mmol/L 136-[address] [facility] WBC (Bld) [#/Vol] 7.1 10*3/uL 4.4-11.[address] [facility] Blood erythrocytes count (nu mber/volume)Ordered By: Dr. Olguin on 07-13-2022 RBC (Bld) [#/Vol] 4.11 10*6/uL 4.6-6.2 [facility] Blood hemoglobin measurement (mass/volume)Ordered By: Dr. Olguin on 07-13-2022 Hemoglobin (Bld) [Mass/Vol] 12.8 g/dL 13.0-16.5 [facility] Blood lymphocytes/100 leukoc ytesOrdered By: Dr. Olguin on 07-13-2022 Lymphocytes/100 WBC (Bld) 31.6 % 19-41 [facility] Blood monocytes/100 leukocyt esOrdered By: Dr. Olguin on 07-13-2022 Monocytes/100 WBC (Bld) 7.7 % 0-10 [facility] Blood platelet adequacy dete ction by light microscopyOrdered By: Dr. Olguin on 07-13-2022 Platelets LM Ql (Bld) ADEQUATE ADEQ [facility] Blood platelet mean volumeOr dered By: Dr. Olguin on 07-13-2022 Platelet mean volume (Bld) [Entitic vol] 13.8 fL 6.2-12.0 [facility] Determination of erythrocyte mean corpuscular volume (MCV)Ordered By: Dr. Olguin on 07-13-2022 MCV (RBC) [Entitic vol] 95.1 fL 80-94 [facility] Hematocrit Auto (Bld) [Volum e fraction]Ordered By: Dr. Olguin on 07-13-2022 Hematocrit (Bld) [Volume fraction] 39.1 % 40-54 [facility] Laboratory - Chemistry and C hemistry - challengeOrdered By: Dr. Olguin on 07-13-2022 ALP [Catalytic activity/Vol] 72 U/L 45-117 [facility] ALT [Catalytic activity/Vol] 20 U/L 16-61 [facility] CO2 [Moles/Vol] 29.0 mmol/L 21.0-32.0 [facility] Globulin (S) [Mass/Vol] 3.7 g/dL 2.2-4.2 [facility] Urea nitrogen/Creatinine [Mass ratio] 27.6 mg/mg 10-20 [facility] Laboratory - Hematology and Cell countsOrdered By: Dr. Olguin on 07-13-2022 Erythrocyte distribution width (RBC) [Entitic vol] 50.1 fL 35.1-43.9 [facility] Erythrocyte distribution width (RBC) [Ratio] 14.4 % 11.6-14.6 [facility] Immature granulocytes/100 WBC (Bld) 0.400 % 0.0-0.9 [facility] Comment on above: IG% - Immature Granu locytes (promyelocytes, myelocytes and metamyelocytes) > 1% indicates that a LEFT SHIFT is Present. MCH (RBC) [Entitic mass] 31.1 pg 27.0-32.0 [facility] Nucleated RBC/100 WBC (Bld) [Ratio] 0.3 % 0-5 [facility] MCHC Auto (RBC) [Mass/Vol]Or dered By: Dr. Olguin on 07-13-2022 MCHC (RBC) [Mass/Vol] 32.7 g/dL 32-36 [facility] No Panel InformationOrdered By: Dr. Olguin on 07-13-2022 Estimated GFR (MDRD) Amer 110 mL/min >60 [facility] Comment on above: GFR Calc Estimated GFR (MDRD) Non-Af Amer 91 mL/min >60 [facility] Comment on above: Non- GFR Calc Platelets bldOrdered By: Dr. Olguin on 07-13-2022 Platelets (Bld) [#/Vol] 164 10*3/uL 150-450 [facility] RBC morphologyOrdered By: Dr Kris Olguin on 07-13-2022 RBC morphology finding Nom (Bld) NORM C+C NORMAL NORM C&C [facility] Serum or plasma albumin shweta urement (mass/volume)Ordered By: Dr. Olguin on 07-13-2022 Albumin [Mass/Vol] 3.4 g/dL 3.2-5.[address] [facility] Serum or plasma albumin/glob ulin mass ratioOrdered By: Dr. Olguin on 07-13-2022 Albumin/Globulin [Mass ratio] 0.9 {ratio} 0.9-2.4 [facility] Serum or plasma calcium shweta urement (mass/volume)Ordered By: Dr. Olguin on 07-13-2022 Calcium [Mass/Vol] 9.3 mg/dL 8.5-10.[address] [facility] Serum or plasma creatinine m easurement (mass/volume)Ordered By: Dr. Olguin on 07-13-2022 Creatinine [Mass/Vol] 0.87 mg/dL 0.70-1.30 [facility] Comment on above: The validity of the calculated GFR & GFRAA in patients over 70 years has not been determined. Clinical correlation is essential. Serum or plasma urea nitroge n measurement (mass/volume)Ordered By: Dr. Olguin on 07-13-2022 Urea nitrogen [Mass/Vol] 24 mg/dL 7-18 [facility] Thin prep Papanicolaou smear with manual screeningOrdered By: Dr. Olguin on 07-13-2022 Thin prep Papanicolaou smear with manual screening 17 U/L 15-37 [facility] Thin prep Papanicolaou smear with manual screening 7 5-15 [facility] Absolute lymphocyte countOrd ered By: Dr. Olguin on 03-30-2022 Lymphocytes Auto (Unsp spec) [#/Vol] 1.77 10*3/uL 0.83-4.51 [facility] Basophil percentageOrdered B y: Dr. Olguin on 03-30-2022 Basophils/100 WBC (Bld) 0.4 % 0-1 [facility] Bilirubin [Mass/Vol] 0.60 mg/dL 0.20-1.00 [facility] Comment on above: For patients on eltr ombopag therapy, use of Dimension [place] TBIL is not recommended. Chloride [Moles/Vol] 107 mmol/L 98-107 [facility] Eosinophils/100 WBC (Bld) 2.6 % 0-5 [facility] Glucose [Mass/Vol] 116 mg/dL 74-[address] [facility] Comment on above: Fasting Glucose resu lt from 100 to 125 mg/dL suggests IMPAIRED HOMEOSTASIS per A.D.A. criteria. Neutrophils (Bld) [#/Vol] 2.9 10*3/uL 2.0-7.7 [facility] Neutrophils/100 WBC (Bld) 54.1 % 47-70 [facility] Potassium [Moles/Vol] 3.7 mmol/L 3.5-5.1 [facility] Protein [Mass/Vol] 7.1 g/dL 6.4-8.[address] [facility] Sodium [Moles/Vol] 141 mmol/L 136-[address] [facility] WBC (Bld) [#/Vol] 5.3 10*3/uL 4.4-11.[address] [facility] Blood erythrocytes count (nu mber/volume)Ordered By: Dr. Olguin on 03-30-2022 RBC (Bld) [#/Vol] 4.07 10*6/uL 4.6-6.2 [facility] Blood hemoglobin measurement (mass/volume)Ordered By: Dr. Olguin on 03-30-2022 Hemoglobin (Bld) [Mass/Vol] 13.0 g/dL 13.0-16.5 [facility] Blood lymphocytes/100 leukoc ytesOrdered By: Dr. Olguin on 03-30-2022 Lymphocytes/100 WBC (Bld) 33.1 % 19-41 [facility] Blood monocytes/100 leukocyt esOrdered By: Dr. Olguin on 03-30-2022 Monocytes/100 WBC (Bld) 9.2 % 0-10 [facility] Blood platelet adequacy dete ction by light microscopyOrdered By: Dr. Olguin on 03-30-2022 Platelets LM Ql (Bld) ADEQUATE ADEQ [facility] Blood platelet morphology de termination (nominal result)Ordered By: Dr. Olguin on 03-30-2022 Platelet morphology finding Nom (Bld) CLUMPED [facility] Determination of erythrocyte mean corpuscular volume (MCV)Ordered By: Dr. Olguin on 03-30-2022 MCV (RBC) [Entitic vol] 97.1 fL 80-94 [facility] Hematocrit Auto (Bld) [Volum e fraction]Ordered By: Dr. Olguin on 03-30-2022 Hematocrit (Bld) [Volume fraction] 39.5 % 40-54 [facility] Laboratory - Chemistry and C hemistry - challengeOrdered By: Dr. Olguin on 03-30-2022 ALP [Catalytic activity/Vol] 72 U/L 45-117 [facility] ALT [Catalytic activity/Vol] 21 U/L 16-61 [facility] CO2 [Moles/Vol] 29.0 mmol/L 21.0-32.0 [facility] Globulin (S) [Mass/Vol] 3.9 g/dL 2.2-4.2 [facility] Urea nitrogen/Creatinine [Mass ratio] 19.4 mg/mg 10-20 [facility] Laboratory - Hematology and Cell countsOrdered By: Dr. Olguin on 03-30-2022 Erythrocyte distribution width (RBC) [Entitic vol] 49.4 fL 35.1-43.9 [facility] Erythrocyte distribution width (RBC) [Ratio] 13.9 % 11.6-14.6 [facility] Immature granulocytes/100 WBC (Bld) 0.600 % 0.0-0.9 [facility] Comment on above: IG% - Immature Granu locytes (promyelocytes, myelocytes and metamyelocytes) > 1% indicates that a LEFT SHIFT is Present. MCH (RBC) [Entitic mass] 31.9 pg 27.0-32.0 [facility] Nucleated RBC/100 WBC (Bld) [Ratio] 0 % 0-5 [facility] MCHC Auto (RBC) [Mass/Vol]Or dered By: Dr. Olguin on 03-30-2022 MCHC (RBC) [Mass/Vol] 32.9 g/dL 32-36 [facility] No Panel InformationOrdered By: Dr. Olguin on 03-30-2022 Estimated GFR (MDRD) Amer 117 mL/min >60 [facility] Comment on above: GFR Calc Estimated GFR (MDRD) Non-Af Amer 97 mL/min >60 [facility] Comment on above: Non- GFR Calc Platelets bldOrdered By: Dr. Olguin on 03-30-2022 Platelets (Bld) [#/Vol] See comment 150-450 [facility] Comment on above: Please note: For thi [...] on 03-30-2022 Albumin [Mass/Vol] 3.2 g/dL 3.2-5.[address] [facility] Serum or plasma albumin/glob ulin mass ratioOrdered By: Dr. Olguin on 03-30-2022 Albumin/Globulin [Mass ratio] 0.8 {ratio} 0.9-2.4 [facility] Serum or plasma calcium shweta urement (mass/volume)Ordered By: Dr. Olguin on 03-30-2022 Calcium [Mass/Vol] 9.3 mg/dL 8.5-10.[address] [facility] Serum or plasma creatinine m easurement (mass/volume)Ordered By: Dr. Olguin on 03-30-2022 Creatinine [Mass/Vol] 0.83 mg/dL 0.70-1.30 [facility] Comment on above: The validity of the calculated GFR & GFRAA in patients over 70 years has not been determined. Clinical correlation is essential. Serum or plasma urea nitroge n measurement (mass/volume)Ordered By: Dr. Olguin on 03-30-2022 Urea nitrogen [Mass/Vol] 16 mg/dL 7-18 [facility] Thin prep Papanicolaou smear with manual screeningOrdered By: Dr. Olguin on 03-30-2022 Thin prep Papanicolaou smear with manual screening 15 U/L 15-37 [facility] Thin prep Papanicolaou smear with manual screening 5 5-15 [facility] Whole blood hemoglobin A1c/t otal hemoglobin ratio (mass fraction)Ordered By: Dr. Olguin on 03-30-2022 HbA1c (Bld) [Mass fraction] 6.2 % 3.8-5.6 [facility] Comment on above: Normal < 5.7 % Predi abetic 5.7 - 6.4 % Diabetic >or= 6.5 % Please note range changes. Glucose Glucometer (BldC) [M ass/Vol]on 01-05-2022 Glucose [Mass/Vol] 162 mg/dL 74-[address] [facility] Work Phone: Comment on above: MANAGEMENT OF PATIEN T CARE PER NURSING PROTOCOL Absolute lymphocyte counton 10-03-2021 Lymphocytes Auto (Unsp spec) [#/Vol] 1.66 10*3/uL 0.83-4.51 [facility] Work Phone: Basophil percentageon 2021 Basophils/100 WBC (Bld) 0.4 % 0-1 [facility] Work Phone: Bilirubin [Mass/Vol] 0.40 mg/dL 0.20-1.00 [facility] Work Phone: Comment on above: For patients on eltr ombopag therapy, use of Dimension [place] TBIL is not recommended. Chloride [Moles/Vol] 106 mmol/L 98-107 [facility] Work Phone: Eosinophils/100 WBC (Bld) 2.1 % 0-5 [facility] Work Phone: Glucose [Mass/Vol] 125 mg/dL 74-[address] [facility] Work Phone: Comment on above: Fasting Glucose resu lt from 100 to 125 mg/dL suggests IMPAIRED HOMEOSTASIS per A.D.A. criteria. Neutrophils (Bld) [#/Vol] 3.3 10*3/uL 2.0-7.7 [facility] Work Phone: Neutrophils/100 WBC (Bld) 58.4 % 47-70 [facility] Work Phone: [phone] Potassium [Moles/Vol] 3.8 mmol/L 3.5-5.1 [facility] Work Phone: Protein [Mass/Vol] 7.0 g/dL 6.4-8.[address] [facility] Work Phone: Sodium [Moles/Vol] 139 mmol/L 136-[address] [facility] Work Phone: WBC (Bld) [#/Vol] 5.6 10*3/uL 4.4-11.[address] [facility] Work Phone: Blood erythrocytes count (nu mber/volume)on 10-03-2021 RBC (Bld) [#/Vol] 4.05 10*6/uL 4.6-6.2 [facility] Work Phone: Blood hemoglobin measurement (mass/volume)on 10-03-2021 Hemoglobin (Bld) [Mass/Vol] 12.7 g/dL 13.0-16.5 [facility] Work Phone: Blood lymphocytes/100 leukoc yteson 10-03-2021 Lymphocytes/100 WBC (Bld) 29.5 % 19-41 [facility] Work Phone: Blood monocytes/100 leukocyt eson 10-03-2021 Monocytes/100 WBC (Bld) 9.1 % 0-10 [facility] Work Phone: Blood platelet adequacy dete ction by light microscopyon 10-03-2021 Platelets LM Ql (Bld) ADEQUATE ADEQ [facility] Work Phone: Blood platelet mean volumeon 10-03-2021 Platelet mean volume (Bld) [Entitic vol] 14.2 fL 6.2-12.0 [facility] Work Phone: Determination of erythrocyte mean corpuscular volume (MCV)on 10-03-2021 MCV (RBC) [Entitic vol] 96.8 fL 80-94 [facility] Work Phone: Hematocrit Auto (Bld) [Volum e fraction]on 10-03-2021 Hematocrit (Bld) [Volume fraction] 39.2 % 40-54 [facility] Work Phone: Laboratory - Chemistry and C hemistry - challengeon 10-03-2021 ALP [Catalytic activity/Vol] 66 U/L 45-117 [facility] Work Phone: ALT [Catalytic activity/Vol] 23 U/L 16-61 [facility] Work Phone: CO2 [Moles/Vol] 27.0 mmol/L 21.0-32.0 [facility] Work Phone: Globulin (S) [Mass/Vol] 4.1 g/dL 2.2-4.2 [facility] Work Phone: Urea nitrogen/Creatinine [Mass ratio] 19.3 mg/mg 10-20 [facility] Work Phone: Laboratory - Hematology and Cell countson 10-03-2021 Erythrocyte distribution width (RBC) [Entitic vol] 51.3 fL 35.1-43.9 [facility] Work Phone: Erythrocyte distribution width (RBC) [Ratio] 14.4 % 11.6-14.6 [facility] Work Phone: Immature granulocytes/100 WBC (Bld) 0.500 % 0.0-0.9 [facility] Work Phone: Comment on above: IG% - Immature Granu locytes (promyelocytes, myelocytes and metamyelocytes) > 1% indicates that a LEFT SHIFT is Present. MCH (RBC) [Entitic mass] 31.4 pg 27.0-32.0 [facility] Work Phone: Nucleated RBC/100 WBC (Bld) [Ratio] 0 % 0-5 [facility] Work Phone: MCHC Auto (RBC) [Mass/Vol]on 10-03-2021 MCHC (RBC) [Mass/Vol] 32.4 g/dL 32-36 [facility] Work Phone: No Panel Informationon 10-03 Estimated GFR (MDRD) Amer 109 mL/min >60 [facility] Work Phone: Comment on above: GFR Calc Estimated GFR (MDRD) Non-Af Amer 90 mL/min >60 [facility] Work Phone: Comment on above: Non- GFR Calc Platelets bldon 10-03-2021 Platelets (Bld) [#/Vol] See comment 150-450 [facility] Work Phone: Comment on above: Please note: [...] (mass/volume)on 10-03-2021 CRP [Mass/Vol] 6.39 mg/L 0.0-3.0 [facility] Work Phone: Comment on above: C-Reactive Protein ( CRP) provides useful information for thediagnosis, therapy and monitoring of inflammatory processesand associated diseases. For the evaluation of Relative Riskfor Cardiovascular Disease, a High Sensitivity CRP (HSCRP)should be ordered. Serum or plasma albumin shweta urement (mass/volume)on 10-03-2021 Albumin [Mass/Vol] 2.9 g/dL 3.2-5.[address] [facility] Work Phone: Serum or plasma albumin/glob ulin mass ratioon 10-03-2021 Albumin/Globulin [Mass ratio] 0.7 {ratio} 0.9-2.4 [facility] Work Phone: Serum or plasma calcium shweta urement (mass/volume)on 10-03-2021 Calcium [Mass/Vol] 8.3 mg/dL 8.5-10.[address] [facility] Work Phone: Serum or plasma creatinine m easurement (mass/volume)on 10-03-2021 Creatinine [Mass/Vol] 0.88 mg/dL 0.70-1.30 [facility] Work Phone: Comment on above: The validity of the calculated GFR & GFRAA in patients over 70 years has not been determined. Clinical correlation is essential. Serum or plasma urea nitroge n measurement (mass/volume)on 10-03-2021 Urea nitrogen [Mass/Vol] 17 mg/dL 7-18 [facility] Work Phone: Thin prep Papanicolaou smear with manual screeningon 10-03-2021 Thin prep Papanicolaou smear with manual screening 15 U/L 15-37 [facility] Work Phone: Thin prep Papanicolaou smear with manual screening 6 5-15 [facility] Work Phone: Whole blood hemoglobin A1c/t otal hemoglobin ratio (mass fraction)on 10-03-2021 HbA1c (Bld) [Mass fraction] 5.3 % 3.8-5.6 [facility] Work Phone: Comment on above: Normal < 5.7 % Predi abetic 5.7 - 6.4 % Diabetic >or= 6.5 % Please note range changes. No Panel Informationon 07-04 Urine Microalbumin/Creatinin e Ratio 10.0 mg/g CRE <30 [facility] Work Phone: Thin prep Papanicolaou smear with manual screeningon 07-04-2021 Thin prep Papanicolaou smear with manual screening 20.5 mg/L NO RANGE EST. [facility] Work Phone: Urine creatinine measurement (mass/volume)on 07-04-2021 Creatinine (U) [Mass/Vol] 204.00 mg/dL NO RANGE EST. [facility] Work Phone: Absolute lymphocyte counton 07-03-2021 Lymphocytes Auto (Unsp spec) [#/Vol] 1.81 10*3/uL 0.83-4.51 [facility] Work Phone: Basophil percentageon 2021 Basophils/100 WBC (Bld) 0.4 % 0-1 [facility] Work Phone: Bilirubin [Mass/Vol] 0.50 mg/dL 0.20-1.00 [facility] Work Phone: Comment on above: For patients on eltr ombopag therapy, use of Dimension [place] TBIL is not recommended. Chloride [Moles/Vol] 107 mmol/L 98-107 [facility] Work Phone: Eosinophils/100 WBC (Bld) 2.4 % 0-5 [facility] Work Phone: Glucose [Mass/Vol] 192 mg/dL 74-[address] [facility] Work Phone: Comment on above: Fasting Glucose resu lt greater than or equal to 126 mg/dL suggests DIABETES MELLITUS per A.D.A. criteria. Neutrophils (Bld) [#/Vol] 2.9 10*3/uL 2.0-7.7 [facility] Work Phone: Neutrophils/100 WBC (Bld) 52.6 % 47-70 [facility] Work Phone: Potassium [Moles/Vol] 3.6 mmol/L 3.5-5.1 [facility] Work Phone: [phone] Protein [Mass/Vol] 6.9 g/dL 6.4-8.[address] [facility] Work Phone: Sodium [Moles/Vol] 139 mmol/L 136-[address] [facility] Work Phone: WBC (Bld) [#/Vol] 5.5 10*3/uL 4.4-11.[address] [facility] Work Phone: [phone] Blood erythrocytes count (nu mber/volume)on 07-03-2021 RBC (Bld) [#/Vol] 4.14 10*6/uL 4.6-6.2 [facility] Work Phone: Blood hemoglobin measurement (mass/volume)on 07-03-2021 Hemoglobin (Bld) [Mass/Vol] 12.2 g/dL 13.0-16.5 [facility] Work Phone: Blood lymphocytes/100 leukoc yteson 07-03-2021 Lymphocytes/100 WBC (Bld) 33.2 % 19-41 [facility] Work Phone: Blood monocytes/100 leukocyt eson 07-03-2021 Monocytes/100 WBC (Bld) 10.8 % 0-10 [facility] Work Phone: Blood platelet mean volumeon 07-03-2021 Platelet mean volume (Bld) [Entitic vol] 13.6 fL 6.2-12.0 [facility] Work Phone: Determination of erythrocyte mean corpuscular volume (MCV)on 07-03-2021 MCV (RBC) [Entitic vol] 94.4 fL 80-94 [facility] Work Phone: Hematocrit Auto (Bld) [Volum e fraction]on 07-03-2021 Hematocrit (Bld) [Volume fraction] 39.1 % 40-54 [facility] Work Phone: Laboratory - Chemistry and C hemistry - challengeon 07-03-2021 ALP [Catalytic activity/Vol] 76 U/L 45-117 [facility] Work Phone: ALT [Catalytic activity/Vol] 19 U/L 16-61 [facility] Work Phone: CO2 [Moles/Vol] 28.0 mmol/L 21.0-32.0 [facility] Work Phone: Globulin (S) [Mass/Vol] 4.1 g/dL 2.2-4.2 [facility] Work Phone: Urea nitrogen/Creatinine [Mass ratio] 19.3 mg/mg 10-20 [facility] Work Phone: Laboratory - Hematology and Cell countson 07-03-2021 Erythrocyte distribution width (RBC) [Entitic vol] 49.1 fL 35.1-43.9 [facility] Work Phone: Erythrocyte distribution width (RBC) [Ratio] 14.4 % 11.6-14.6 [facility] Work Phone: Immature granulocytes/100 WBC (Bld) 0.600 % 0.0-0.9 [facility] Work Phone: Comment on above: IG% - Immature Granu locytes (promyelocytes, myelocytes and metamyelocytes) > 1% indicates that a LEFT SHIFT is Present. MCH (RBC) [Entitic mass] 29.5 pg 27.0-32.0 [facility] Work Phone: Nucleated RBC/100 WBC (Bld) [Ratio] 0 % 0-5 [facility] Work Phone: MCHC Auto (RBC) [Mass/Vol]on 07-03-2021 MCHC (RBC) [Mass/Vol] 31.2 g/dL 32-36 [facility] Work Phone: No Panel Informationon 07-03 Estimated GFR (MDRD) Amer 109 mL/min >60 [facility] Work Phone: Comment on above: GFR Calc Estimated GFR (MDRD) Non-Af Amer 90 mL/min >60 [facility] Work Phone: Comment on above: Non- GFR Calc Thyroid Stimulating Hormone (TSH) 0.02 uIU/mL 0.358-3.74 [facility] Work Phone: Platelets bldon 07-03-2021 Platelets (Bld) [#/Vol] 214 10*3/uL 150-450 [facility] Work Phone: Serum or plasma albumin shweta urement (mass/volume)on 07-03-2021 Albumin [Mass/Vol] 2.8 g/dL 3.2-5.[address] [facility] Work Phone: Serum or plasma albumin/glob ulin mass ratioon 07-03-2021 Albumin/Globulin [Mass ratio] 0.7 {ratio} 0.9-2.4 [facility] Work Phone: Serum or plasma calcium shweta urement (mass/volume)on 07-03-2021 Calcium [Mass/Vol] 8.4 mg/dL 8.5-10.[address] [facility] Work Phone: Serum or plasma creatinine m easurement (mass/volume)on 07-03-2021 Creatinine [Mass/Vol] 0.88 mg/dL 0.70-1.30 [facility] Work Phone: Comment on above: The validity of the calculated GFR & GFRAA in patients over 70 years has not been determined. Clinical correlation is essential. Serum or plasma urea nitroge n measurement (mass/volume)on 07-03-2021 Urea nitrogen [Mass/Vol] 17 mg/dL 7-18 [facility] Work Phone: Thin prep Papanicolaou smear with manual screeningon 07-03-2021 Thin prep Papanicolaou smear with manual screening 19 U/L 15-37 [facility] Work Phone: Thin prep Papanicolaou smear with manual screening 4 5-15 [facility] Work Phone: Whole blood hemoglobin A1c/t otal hemoglobin ratio (mass fraction)on 07-03-2021 HbA1c (Bld) [Mass fraction] 5.8 % 3.8-5.6 [facility] Work Phone: Comment on above: Normal < [...] LEVOFLOXACIN 0.5 S MEROPENEM <0.[address] [facility] [place] Comment on above: Performed By: #### M [id number], [id number] #### [facility] [address] [place] [address] GRAM STAINon 01-29-2021 Microscopic observation Gram stain Nom (Unsp spec) GRAM STAIN NO WBC'S SEEN MANY GRAM POSITIVE COCCI RARE GRAM NEGATIVE COCCI Normal [facility] Comment on above: Performed By: #### M [id number], [id number] #### [facility] [address] [phone] [place] MYOCARDIAL SPECT STRESS/R ESTon 06-10-2018 NM [...] PM Sign Date: 06/10/2018 12:18:54 PM Normal [facility] Bacteria identified Cx Nom ( Wound) Wound Culture Erysipelothrix rhusiopathiae [facility] Work Phone: Wound Culture Actinomyces odontolyticus [facility] Work Phone: Gram stain for investigation of transfusion reaction Microscopic observation Gram stain Nom (Unsp spec) [facility] Work Phone: Vital Signs Date Time Vital Sign Value Performing Clinician Facility 11-10-2024 07:26-0400 Body mass index (BMI) [Ratio] 28.7 kg/m2 Dr. Jessi Olguin MD Work Phone: 5(355)226-280493 [place] [address] 11-10-2024 07:26-0400 Body temperature 97.3 [degF] Dr. Jessi Olguin MD Work Phone: 0(134)340-335493 [place] [address] 11-10-2024 07:26-0400 Body weight 104.[address] Jessi Olguin MD Work Phone: 1(178)825-156493 [place] [address] 11-10-2024 07:26-0400 Diastolic blood pressure 64 mm[Hg] Dr. Jessi Olguin MD Work Phone: 1(520)065-113293 [place] [address] 11-10-2024 07:26-0400 Heart rate 73 /min Dr. Jessi Olguin MD Work Phone: 7(640)744-851393 [place] [address] 11-10-2024 07:26-0400 Respiratory rate 18 /min Dr. Jessi Olguin MD Work Phone: 9(643)049-908193 [place] [address] 11-10-2024 07:26-0400 SaO2% (BldA) [Mass fraction] 96 % Dr. Jessi Olguin MD Work Phone: 4(903)114-118493 [place] [address] 11-10-2024 07:26-0400 Systolic blood pressure 106 mm[Hg] Dr. Jessi Olguin MD Work Phone: 0(003)439-423793 [place] [address] 09-21-2024 17:42-0400 Body temperature 97.8 [degF] Dr. Jessi Olguin MD Work Phone: 0(522)291-903693 [place] [address] 09-21-2024 17:42-0400 Diastolic blood pressure 59 mm[Hg] Dr. Jessi Olguin MD Work Phone: 1(694)322-823093 [place] [address] 09-21-2024 17:42-0400 Heart rate 71 /min Dr. Jessi Olguin MD Work Phone: 4(591)068-742593 [place] [address] 09-21-2024 17:42-0400 Respiratory rate 18 /min Dr. Jessi Olguin MD Work Phone: 4(534)018-227093 [place] [address] 09-21-2024 17:42-0400 SaO2% (BldA) [Mass fraction] 93 % Dr. Jessi Olguin MD Work Phone: [facility] 09-21-2024 17:42-0400 Systolic blood pressure 116 mm[Hg] Dr. Jessi Olguin MD Work Phone: 2(484)440-840993 [place] [address] 09-21-2024 14:33-0400 Body height 190.[address] Jessi Olguin MD Work Phone: 3(217)045-377893 [place] [address] 09-03-2024 09:14-0400 Heart rate 88 /min Dr. Jessi Olguin MD Work Phone: 7(737)677-869293 [place] [address] 09-03-2024 09:07-0400 Body temperature 98.2 [degF] Dr. Jessi Olguin MD Work Phone: 1(312)044-911193 [place] [address] 09-03-2024 09:07-0400 Diastolic blood pressure 74 mm[Hg] Dr. Jessi Olguin MD Work Phone: 9(507)417-366693 [place] [address] 09-03-2024 09:07-0400 Respiratory rate 15 /min Dr. Jessi Olguin MD Work Phone: 2(246)056-566493 [place] [address] 09-03-2024 09:07-0400 SaO2% (BldA) [Mass fraction] 95 % Dr. Jessi Olguin MD Work Phone: 0(705)724-941993 [place] [address] 09-03-2024 09:07-0400 Systolic blood pressure 105 mm[Hg] Dr. Jessi Olguin MD Work Phone: 0(916)588-650678 [place] [address] 09-03-2024 05:21-0400 Body mass index (BMI) [Ratio] 29 kg/m2 Dr. Jessi Olguin MD Work Phone: 3(219)348-656778 [place] [address] 09-03-2024 05:21-0400 Body weight 105.[address] Jessi Olguin MD Work Phone: 7(822)275-406393 [place] [address] 09-02-2024 19:15-0400 Inhaled oxygen flow rate 3 L/min Dr. Jessi Olguin MD Work Phone: 7(767)775-893078 [place] [address] 09-02-2024 09:42-0400 Body height 190.[address] Jessi Olguin MD Work Phone: [facility] 09-01-2024 21:51-0400 Body temperature 97.6 [degF] Dr. Jessi Olguin MD Work Phone: [facility] 09-01-2024 21:51-0400 Diastolic blood pressure 80 mm[Hg] Dr. Jessi Olguin MD Work Phone: 6(599)668-617478 [place] [address] 09-01-2024 21:51-0400 Heart rate 71 /min Dr. Jessi Olguin MD Work Phone: 1(739)561-098993 [place] [address] 09-01-2024 21:51-0400 Respiratory rate 20 /min Dr. Jessi Olguin MD Work Phone: 8(494)638-785693 [place] [address] 09-01-2024 21:51-0400 SaO2% (BldA) [Mass fraction] 99 % Dr. Jessi Olguin MD Work Phone: 8(047)119-190578 [place] [address] 09-01-2024 21:51-0400 Systolic blood pressure 98 mm[Hg] Dr. Jessi Olguin MD Work Phone: 7(088)646-946878 [place] [address] 09-01-2024 18:00-0400 Inhaled oxygen flow rate 2 L/min Dr. Jessi Olguin MD Work Phone: 8(257)123-208178 [place] [address] 09-01-2024 16:42-0400 Body height 190.[address] Jessi Olguin MD Work Phone: 9(474)236-325878 [place] [address] 09-01-2024 16:42-0400 Body mass index (BMI) [Ratio] 30 kg/m2 Dr. Jessi Olguin MD Work Phone: [facility] 09-01-2024 16:42-0400 Body weight [address] Jessi Olugin MD Work Phone: 7(614)897-090778 [place] [address] 09-01-2024 07:55-0400 Body mass index (BMI) [Ratio] 29.1 kg/m2 Dr. Jessi Olguin MD Work Phone: 3(912)779-385878 [place] [address] 09-01-2024 07:55-0400 Body weight 105.[address] Jessi Olguin MD Work Phone: [facility] 09-01-2024 07:55-0400 Diastolic blood pressure 44 mm[Hg] Dr. Jessi Olguin MD Work Phone: [facility] 09-01-2024 07:55-0400 Heart rate 78 /min Dr. Jessi Olguin MD Work Phone: 2(836)847-599878 [place] [address] 09-01-2024 07:55-0400 Respiratory rate 18 /min Dr. Jessi Olguin MD Work Phone: 3(010)331-252378 [place] [address] 09-01-2024 07:55-0400 Systolic blood pressure 79 mm[Hg] Dr. Jessi Olguin MD Work Phone: 2(236)365-562193 [place] [address] 08-03-2024 07:53-0500 Body temperature 97.4 [degF] Dr. Jessi Olguin MD Work Phone: 0(623)175-715278 [place] [address] 08-03-2024 07:53-0500 Diastolic blood pressure 73 mm[Hg] Dr. Jessi Olguin MD Work Phone: 4(264)236-500778 [place] [address] 08-03-2024 07:53-0500 Heart rate 70 /min Dr. Jessi Olguin MD Work Phone: 1(161)030-741287 [address] 08-03-2024 07:53-0500 Respiratory rate 16 /min Dr. Jessi Olguin MD Work Phone: 3(298)342-714678 [place] [address] 08-03-2024 07:53-0500 SaO2% (BldA) [Mass fraction] 96 % Dr. Jessi Olguin MD Work Phone: [facility] 08-03-2024 07:53-0500 Systolic blood pressure 116 mm[Hg] Dr. Jessi Olguin MD Work Phone: 1(403)002-684278 [place] [address] 07-07-2024 04:23-0500 Body temperature 98.2 [degF] Dr. Jessi Olguin MD Work Phone: [facility] 07-07-2024 04:23-0500 Diastolic blood pressure 81 mm[Hg] Dr. Jessi Olguin MD Work Phone: [facility] 07-07-2024 04:23-0500 Heart rate 70 /min Dr. Jessi Olguin MD Work Phone: [facility] 07-07-2024 04:23-0500 Respiratory rate 20 /min Dr. Jessi Olguin MD Work Phone: [facility] 07-07-2024 04:23-0500 SaO2% (BldA) [Mass fraction] 95 % Dr. Jessi Olguin MD Work Phone: [facility] 07-07-2024 04:23-0500 Systolic blood pressure 124 mm[Hg] Dr. Jessi Olguin MD Work Phone: [facility] 07-07-2024 02:06-0500 Inhaled oxygen flow rate 2 L/min Dr. Jessi Olguin MD Work Phone: [facility] 07-07-2024 01:54-0500 Body mass index (BMI) [Ratio] 31.1 kg/m2 Dr. Jessi Olguin MD Work Phone: [facility] 07-07-2024 01:54-0500 Body weight 113.[address] Jessi Olguin MD Work Phone: [facility] 07-01-2024 11:10-0500 Heart rate 70 /min DR SEDRICK ALEXANDER MD [facility] 07-01-2024 11:10-0500 Reason For Taking VItal Signs DR SEDRICK ALEXANDER MD [facility] 07-01-2024 10:55-0500 Heart rate 71 /min DR SEDRICK ALEXANDER MD [facility] 07-01-2024 10:55-0500 Respiratory rate 18 /min DR SEDRICK ALEXANDER MD [facility] 07-01-2024 10:52-0500 systolic 109 mm[Hg] DR SEDRICK ALEXANDER MD [facility] 07-01-2024 10:50-0500 Heart rate 71 /min DR SEDRICK ALEXANDER MD [address] 07-01-2024 10:50-0500 Blood Pressure Cuff Size DR SEDRICK ALEXANDER MD [address] [place] [address] 07-01-2024 10:50-[address] SEDRICK ALEXANDER MD [address] [place] [address] 07-01-2024 10:50-[address] SEDRICK ALEXANDER MD [address] [place] [address] 07-01-2024 10:50-0500 Body temperature 98.42 [degF] DR SEDRICK ALEXANDER MD [address] [place] [address] 07-01-2024 10:50-0500 Diastolic Blood Pressure Non-Invasive 68 mm[Hg] DR SEDRICK ALEXANDER MD [address] [place] [address] 07-01-2024 10:50-0500 Reason For Taking VItal Signs DR SEDRICK ALEXANDER MD [address] [place] [address] 07-01-2024 10:50-0500 Respiratory rate 18 /min DR SEDRICK ALEXANDER MD [address] [place] [address] 07-01-2024 10:50-0500 Systolic Blood Pressure Non-Invasive 128 mm[Hg] DR SEDRICK ALEXANDER MD [address] [place] [address] 07-01-2024 08:37-0500 Heart rate 70 /min DR SEDRICK ALEXANDER MD [address] [place] [address] 07-01-2024 08:06-0500 Heart rate 78 /min DR SEDRICK ALEXANDER MD [address] 07-01-2024 08:06-0500 Reason For Taking VItal Signs DR SEDRICK ALEXANDER MD [address] [place] [address] 07-01-2024 07:02-0500 Heart rate 71 /min DR SEDRICK ALEXANDER MD [address] [place] [address] 07-01-2024 07:02-0500 Respiratory rate 18 /min DR SEDRICK ALEXANDER MD [address] [place] [address] 07-01-2024 06:38-0500 Blood Pressure Cuff Size DR SEDRICK ALEXANDER MD [address] [place] [address] 07-01-2024 06:38-[address] SEDRICK ALEXANDER MD [address] [place] [address] 07-01-2024 06:38-[address] SEDRICK ALEXANDER MD [address] [place] [address] 07-01-2024 06:38-0500 Body temperature 98.42 [degF] DR SEDRICK ALEXANDER MD [address] [place] [address] 07-01-2024 06:38-0500 Diastolic Blood Pressure Non-Invasive 64 mm[Hg] DR SEDRICK ALEXANDER MD [address] [place] [address] 07-01-2024 06:38-0500 Mean blood pressure 92 mm[Hg] DR SEDRICK ALEXANDER MD [address] [place] [address] 07-01-2024 06:38-0500 Systolic Blood Pressure Non-Invasive 146 mm[Hg] DR SEDRICK ALEXANDER MD [address] [place] [address] 07-01-2024 02:25-0500 diastolic 66 mm[Hg] DR SEDRICK ALEXANDER MD [address] [place] [address] 07-01-2024 02:25-0500 Mean blood pressure 76 mm[Hg] DR SEDRICK ALEXANDER MD [address] [place] [address] 07-01-2024 00:00-0500 Mean blood pressure 67 mm[Hg] DR SEDRICK ALEXANDER MD [address] [place] [address] 07-01-2024 00:00-0500 Body temperature 98.06 [degF] DR SEDRICK ALEXANDER MD [address] [place] [address] 06-30-2024 18:47-0500 Heart rate 73 /min DR SEDRICK ALEXANDER MD [address] [place] [address] 06-30-2024 18:07-0500 Heart rate 70 /min DR SEDRICK ALEXANDER MD [address] [place] [address] 06-30-2024 17:36-[address] SEDRICK ALEXANDER MD [address] [place] [address] 06-30-2024 17:05-0500 Body temperature 97.52 [degF] DR SEDRICK ALEXANDER MD [address] [place] [address] 06-30-2024 17:00-0500 Respiratory Rate - Anes 0 br/min DR SEDRICK ALEXANDER MD [address] [place] [address] 06-30-2024 16:55-0500 Body temperature 94.8 [degF] DR SEDRICK ALEXANDER MD [address] [place] [address] 06-30-2024 16:55-0500 Respiratory Rate - Anes 12 br/min DR SEDRICK ALEXANDER MD [address] [place] [address] 06-30-2024 16:50-0500 Body temperature 94.89 [degF] DR SEDRICK ALEXANDER MD [address] [place] [address] 06-30-2024 16:50-0500 Respiratory Rate - Anes 12 br/min DR SEDRICK ALEXANDER MD [address] [place] [address] 06-30-2024 16:45-0500 Body temperature 94.77 [degF] DR SEDRICK ALEXANDER MD [address] [place] [address] 06-30-2024 10:23-0500 Blood Pressure Cuff Size DR SEDRICK ALEXANDER MD [address] [place] [address] 06-30-2024 10:23-[address] SEDRICK ALEXANDER MD [address] [place] [address] 06-29-2024 16:14-0500 Heart rate 65 /min DR SEDRICK ALEXANDER MD [address] [place] [address] 06-27-2024 12:50-0500 Body height [address] SEDRICK ALEXANDER MD [address] [place] [address] 06-27-2024 12:50-0500 Body weight 110.[address] SEDRICK ALEXANDER MD [address] [place] [address] 06-27-2024 12:50-0500 Body weight 30.61 kg/m2 DR SEDRICK ALEXANDER MD [facility] 06-27-2024 08:36-0500 Body weight 108.[address] Jessi Olguin MD Work Phone: [facility] 06-27-2024 08:36-0500 Inhaled oxygen flow rate 4 L/min Dr. Jessi Olguin MD Work Phone: [facility] 06-27-2024 08:36-0500 SaO2% (BldA) [Mass fraction] 91 % Dr. Jessi Olguin MD Work Phone: 0(407)516-779078 [place] [address] 06-27-2024 05:38-0500 Body mass index (BMI) [Ratio] 29.9 kg/m2 Dr. Jessi Olguin MD Work Phone: [facility] 06-27-2024 03:00-0500 Body temperature 98.6 [degF] Dr. Jessi Olguin MD Work Phone: [facility] 06-27-2024 03:00-0500 Diastolic blood pressure 81 mm[Hg] Dr. Jessi Olguin MD Work Phone: [facility] 06-27-2024 03:00-0500 Heart rate 70 /min Dr. Jessi Olguin MD Work Phone: [facility] 06-27-2024 03:00-0500 Respiratory rate 18 /min Dr. Jessi Olguin MD Work Phone: [facility] 06-27-2024 03:00-0500 Systolic blood pressure 118 mm[Hg] Dr. Jessi Olguin MD Work Phone: [facility] 05-25-2024 20:00-0500 Heart rate 71 /min Dr. Jessi Olguin MD Work Phone: [facility] 05-25-2024 20:00-0500 Respiratory rate 18 /min Dr. Jessi Olguin MD Work Phone: [facility] 05-25-2024 20:00-0500 SaO2% (BldA) [Mass fraction] 95 % Dr. Jessi Olguin MD Work Phone: [facility] 05-25-2024 18:00-0500 Body temperature 96.2 [degF] Dr. Jessi Olguin MD Work Phone: [facility] 05-25-2024 18:00-0500 Diastolic blood pressure 93 mm[Hg] Dr. Jessi Olguin MD Work Phone: 8(229)804-972878 [place] [address] 05-25-2024 18:00-0500 Systolic blood pressure 132 mm[Hg] Dr. Jessi Olguin MD Work Phone: 7(845)066-741978 [place] [address] 09-19-2023 08:00-0400 Body mass index (BMI) [Ratio] 31.4 kg/m2 Dr. Jessi Olguin Work Phone: 1(529)531-237678 [place] [address] 09-19-2023 08:00-0400 Body temperature 98.7 [degF] Dr. Jessi Olguin Work Phone: 5(394)393-490178 [place] [address] 09-19-2023 08:00-0400 Diastolic blood pressure 86 mm[Hg] Dr. Jessi Olguin Work Phone: 9(282)821-902278 [place] [address] 09-19-2023 08:00-0400 Heart rate 94 /min Dr. Jessi Olguin Work Phone: 4(871)349-206993 [place] [address] 09-19-2023 08:00-0400 Respiratory rate 18 /min Dr. Jessi Olguin Work Phone: 1(987)515-259578 [place] [address] 09-19-2023 08:00-0400 Systolic blood pressure 125 mm[Hg] Dr. Jessi Olguin Work Phone: [facility] 09-02-2023 00:22-0400 Body weight 114.[address] Jessi Olguin Work Phone: 3(925)898-055278 [place] [address] 08-29-2023 08:06-0400 Body mass index (BMI) [Ratio] 31.4 kg/m2 Dr. Jessi Olguin Work Phone: [facility] 08-29-2023 08:06-0400 Body temperature 97.5 [degF] Dr. Jessi Olguin Work Phone: [facility] 08-29-2023 08:06-0400 Diastolic blood pressure 79 mm[Hg] Dr. Jessi Olguin Work Phone: [facility] 08-29-2023 08:06-0400 Heart rate 74 /min Dr. Jessi Olguin Work Phone: [facility] 08-29-2023 08:06-0400 Respiratory rate 20 /min Dr. Jessi Olguin Work Phone: [facility] 08-29-2023 08:06-0400 Systolic blood pressure 108 mm[Hg] Dr. Jessi Olguin Work Phone: [facility] 08-02-2023 00:27-0500 Body weight 114.[address] Jessi Olguin Work Phone: [facility] 08-01-2023 08:00-0500 Body mass index (BMI) [Ratio] 31.4 kg/m2 Dr. Jessi Olguin Work Phone: [facility] 08-01-2023 08:00-0500 Body temperature 96.5 [degF] Dr. Jessi Olguin Work Phone: [facility] 08-01-2023 08:00-0500 Diastolic blood pressure 76 mm[Hg] Dr. Jessi Olguin Work Phone: [facility] 08-01-2023 08:00-0500 Heart rate 86 /min Dr. Jessi Olguin Work Phone: [facility] 08-01-2023 08:00-0500 Respiratory rate 20 /min Dr. Jessi Olguin Work Phone: [facility] 08-01-2023 08:00-0500 Systolic blood pressure 141 mm[Hg] Dr. Jessi Olguin Work Phone: [facility] 07-11-2023 08:10-0500 Body mass index (BMI) [Ratio] 31.4 kg/m2 Dr. Jessi Ogluin Work Phone: [facility] 07-11-2023 08:10-0500 Body temperature 96.9 [degF] Dr. Jessi Olguin Work Phone: [facility] 07-11-2023 08:10-0500 Diastolic blood pressure 84 mm[Hg] Dr. Jessi Olguin Work Phone: [facility] 07-11-2023 08:10-0500 Heart rate 103 /min Dr. Jessi Olguin Work Phone: [facility] 07-11-2023 08:10-0500 Respiratory rate 16 /min Dr. Jessi Olguin Work Phone: [facility] 07-11-2023 08:10-0500 Systolic blood pressure 121 mm[Hg] Dr. Jessi Olguin Work Phone: [facility] 07-09-2023 08:28-0500 Body height 190.[address] Jessi Olguin Work Phone: [facility] 07-09-2023 08:28-0500 Body mass index (BMI) [Ratio] 30.7 kg/m2 Dr. Jessi Olguin Work Phone: [facility] 07-09-2023 08:28-0500 Body weight 111.[address] Jessi Olguin Work Phone: [facility] 07-09-2023 08:28-0500 Diastolic blood pressure 67 mm[Hg] Dr. Jessi Olguin Work Phone: [facility] 07-09-2023 08:28-0500 Heart rate 78 /min Dr. Jessi Olguin Work Phone: [facility] 07-09-2023 08:28-0500 Respiratory rate 18 /min Dr. Jessi Olguin Work Phone: [facility] 07-09-2023 08:28-0500 SaO2% (BldA) [Mass fraction] 95 % Dr. Jessi Olguin Work Phone: [facility] 07-09-2023 08:28-0500 Systolic blood pressure 111 mm[Hg] Dr. Jessi Olguin Work Phone: [facility] 07-04-2023 00:26-0500 Body weight 114.[address] Jessi Olguin Work Phone: [facility] 06-27-2023 08:04-0500 Body mass index (BMI) [Ratio] 31.4 kg/m2 Dr. Jessi Olguin Work Phone: [facility] 06-27-2023 08:04-0500 Body temperature 97.1 [degF] Dr. Jessi Olguin Work Phone: [facility] 06-27-2023 08:04-0500 Diastolic blood pressure 64 mm[Hg] Dr. Jessi Olguin Work Phone: [facility] 06-27-2023 08:04-0500 Heart rate 95 /min Dr. Jessi Olguin Work Phone: [facility] 06-27-2023 08:04-0500 Respiratory rate 18 /min Dr. Jessi Olguin Work Phone: [facility] 06-27-2023 08:04-0500 Systolic blood pressure 119 mm[Hg] Dr. Jessi Olguin Work Phone: [facility] 06-03-2023 00:41-0500 Body weight 114.[address] Jessi Olguin Work Phone: [facility] 05-30-2023 08:04-0500 Body mass index (BMI) [Ratio] 31.4 kg/m2 Dr. Jessi Olguin Work Phone: [facility] 05-30-2023 08:04-0500 Body temperature 97.5 [degF] Dr. Jessi Olguin Work Phone: [facility] 05-30-2023 08:04-0500 Diastolic blood pressure 78 mm[Hg] Dr. Jessi Olguin Work Phone: [facility] 05-30-2023 08:04-0500 Heart rate 95 /min Dr. Jessi Olguin Work Phone: [facility] 05-30-2023 08:04-0500 Respiratory rate 18 /min Dr. Jessi Olguin Work Phone: [facility] 05-30-2023 08:04-0500 Systolic blood pressure 139 mm[Hg] Dr. Jessi Olguin Work Phone: [facility] 05-16-2023 08:10-0500 Body mass index (BMI) [Ratio] 31.4 kg/m2 Dr. Jessi Olguin Work Phone: [facility] 05-16-2023 08:10-0500 Body temperature 96.7 [degF] Dr. Jessi Olguin Work Phone: [facility] 05-16-2023 08:10-0500 Diastolic blood pressure 77 mm[Hg] Dr. Jessi Olguin Work Phone: [facility] 05-16-2023 08:10-0500 Heart rate 107 /min Dr. Jessi Olguin Work Phone: [facility] 05-16-2023 08:10-0500 Respiratory rate 18 /min Dr. Jessi Olguin Work Phone: [facility] 05-16-2023 08:10-0500 Systolic blood pressure 119 mm[Hg] Dr. Jessi Olguin Work Phone: [facility] 05-09-2023 08:09-0500 Body mass index (BMI) [Ratio] 31.4 kg/m2 Dr. Jessi Olguin Work Phone: [facility] 05-09-2023 08:09-0500 Body temperature 97.5 [degF] Dr. Jessi Olguin Work Phone: [facility] 05-09-2023 08:09-0500 Diastolic blood pressure 63 mm[Hg] Dr. Jessi Olguin Work Phone: [facility] 05-09-2023 08:09-0500 Heart rate 81 /min Dr. Jessi Olguin Work Phone: [facility] 05-09-2023 08:09-0500 Respiratory rate 18 /min Dr. Jessi Olguin Work Phone: [facility] 05-09-2023 08:09-0500 Systolic blood pressure 133 mm[Hg] Dr. Jessi Olguin Work Phone: [facility] 05-03-2023 00:35-0500 Body weight 114.[address] Jessi Olguin Work Phone: [facility] 05-02-2023 08:05-0500 Body mass index (BMI) [Ratio] 31.4 kg/m2 Dr. Jessi Olguin Work Phone: [facility] 05-02-2023 08:05-0500 Body temperature 97.4 [degF] Dr. Jessi Olguin Work Phone: [facility] 05-02-2023 08:05-0500 Diastolic blood pressure 73 mm[Hg] Dr. Jessi Olguin Work Phone: [facility] 05-02-2023 08:05-0500 Heart rate 97 /min Dr. Jessi Olguin Work Phone: [facility] 05-02-2023 08:05-0500 Respiratory rate 18 /min Dr. Jessi Olguin Work Phone: [facility] 05-02-2023 08:05-0500 Systolic blood pressure 124 mm[Hg] Dr. Jessi Olguin Work Phone: [facility] 04-03-2023 00:18-0400 Body weight 114.[address] Jessi Olguin Work Phone: [facility] 03-28-2023 08:17-0400 Body mass index (BMI) [Ratio] 31.4 kg/m2 Dr. Jessi Olguin Work Phone: [facility] 03-28-2023 08:17-0400 Diastolic blood pressure 72 mm[Hg] Dr. Jessi Olguin Work Phone: [facility] 03-28-2023 08:17-0400 Heart rate 84 /min Dr. Jessi Olguin Work Phone: [facility] 03-28-2023 08:17-0400 Respiratory rate 18 /min Dr. Jessi Olguin Work Phone: [facility] 03-28-2023 08:17-0400 Systolic blood pressure 123 mm[Hg] Dr. Jessi Olguin Work Phone: [facility] 03-14-2023 08:41-0400 Body temperature 97.6 [degF] Dr. Jessi Olguin Work Phone: [facility] 03-13-2023 10:04-0400 Body height 190.[address] Jessi Olguin Work Phone: [facility] 03-13-2023 10:04-0400 Body mass index (BMI) [Ratio] 29.6 kg/m2 Dr. Jessi Olguin Work Phone: [facility] 03-13-2023 10:04-0400 Body temperature 97.4 [degF] Dr. Jessi Olguin Work Phone: [facility] 03-13-2023 10:04-0400 Body weight 107.[address] Jessi Olguin Work Phone: [facility] 03-13-2023 10:04-0400 Diastolic blood pressure 66 mm[Hg] Dr. Jessi Olguin Work Phone: [facility] 03-13-2023 10:04-0400 Heart rate 85 /min Dr. Jessi Olguin Work Phone: [facility] 03-13-2023 10:04-0400 Respiratory rate 17 /min Dr. Jessi Olguin Work Phone: [facility] 03-13-2023 10:04-0400 SaO2% (BldA) [Mass fraction] 98 % Dr. Jessi Olguin Work Phone: [facility] 03-13-2023 10:04-0400 Systolic blood pressure 97 mm[Hg] Dr. Jessi Olguin Work Phone: [facility] 03-03-2023 00:27-0400 Body weight 114.[address] Jessi Olguin Work Phone: [facility] 02-28-2023 08:22-0400 Body mass index (BMI) [Ratio] 31.4 kg/m2 Dr. Jessi Olguin Work Phone: [facility] 02-28-2023 08:22-0400 Body temperature 95.9 [degF] Dr. Jessi Olguin Work Phone: [facility] 02-28-2023 08:22-0400 Diastolic blood pressure 77 mm[Hg] Dr. Jessi Olguin Work Phone: [facility] 02-28-2023 08:22-0400 Heart rate 108 /min Dr. Jessi Olguin Work Phone: [facility] 02-28-2023 08:22-0400 Respiratory rate 20 /min Dr. Jessi Olguin Work Phone: [facility] 02-28-2023 08:22-0400 Systolic blood pressure 124 mm[Hg] Dr. Jessi Olguin Work Phone: [facility] 02-14-2023 08:08-0400 Body height 190.[address] Jessi Olguin Work Phone: [facility] 02-14-2023 08:08-0400 Body weight 114.[address] Jessi Olguin Work Phone: [facility] 12-13-2022 09:22-0400 Body weight 114.[address] Jessi Olguin Work Phone: [facility] 12-13-2022 09:22-0400 Diastolic blood pressure 56 mm[Hg] Dr. Jessi Olguin Work Phone: [facility] 12-13-2022 09:22-0400 Heart rate 66 /min Dr. Jessi Olguin Work Phone: [facility] 12-13-2022 09:22-0400 Respiratory rate 22 /min Dr. Jessi Olguin Work Phone: [facility] 12-13-2022 09:22-0400 Systolic blood pressure 86 mm[Hg] Dr. Jessi Olguin Work Phone: [facility] 07-10-2022 21:49-0500 Body height 190.5 cm [facility] 07-10-2022 21:49-0500 Body mass index (BMI) [Ratio] 32.3 kg/m2 [facility] 07-10-2022 21:49-0500 Body temperature 97.8 [degF] [facility] 07-10-2022 21:49-0500 Body weight 117.48 kg [facility] 07-10-2022 21:49-0500 Diastolic blood pressure 76 mm[Hg] [facility] 07-10-2022 21:49-0500 Heart rate 69 /min [facility] 07-10-2022 21:49-0500 Respiratory rate 16 /min [facility] 07-10-2022 21:49-0500 SaO2% (BldA) [Mass fraction] 100 % [facility] 07-10-2022 21:49-0500 Systolic blood pressure 142 mm[Hg] [facility] 01-22-2022 12:43-0400 Body height 190.[address] Jesis Olguin Work Phone: [facility] Work Phone: 01-22-2022 12:43-0400 Body mass index (BMI) [Ratio] 32.3 kg/m2 Dr. Jessi Olguin Work Phone: [facility] Work Phone: 01-22-2022 12:43-0400 Body temperature 97.2 [degF] Dr. Jessi Olguin Work Phone: [facility] Work Phone: 01-22-2022 12:43-0400 Body weight 117.[address] Jessi Olguin Work Phone: [facility] Work Phone: 01-22-2022 12:43-0400 Diastolic blood pressure 74 mm[Hg] Dr. Jessi Olguin Work Phone: [facility] Work Phone: 01-22-2022 12:43-0400 Heart rate 67 /min Dr. Jessi Olguin Work Phone: [facility] Work Phone: 01-22-2022 12:43-0400 Respiratory rate 16 /min Dr. Jessi Olguin Work Phone: [facility] Work Phone: 01-22-2022 12:43-0400 SaO2% (BldA) [Mass fraction] 99 % Dr. Jessi Olguin Work Phone: [facility] Work Phone: 01-22-2022 12:43-0400 Systolic blood pressure 121 mm[Hg] Dr. Jessi Olguin Work Phone: [facility] Work Phone: 01-05-2022 14:04-0400 Body temperature 97.6 [degF] Dr. Jessi Olguin Work Phone: [facility] Work Phone: 01-05-2022 14:04-0400 Diastolic blood pressure 60 mm[Hg] Dr. Jessi Olguin Work Phone: [facility] Work Phone: 01-05-2022 14:04-0400 Heart rate 67 /min Dr. Jessi Olguin Work Phone: [facility] Work Phone: 01-05-2022 14:04-0400 Respiratory rate 18 /min Dr. Jessi Olguin Work Phone: [facility] Work Phone: 01-05-2022 14:04-0400 Systolic blood pressure 97 mm[Hg] Dr. Jessi Olguin Work Phone: [facility] Work Phone: 01-05-2022 14:00-0400 SaO2% (BldA) [Mass fraction] 94 % Dr. Jessi Olguin Work Phone: [facility] Work Phone: 01-05-2022 13:50-0400 Inhaled oxygen flow rate 2 L/min Dr. Jessi Olguin Work Phone: [facility] Work Phone: 01-05-2022 09:56-0400 Body height 190.[address] Jessi Olguin Work Phone: [facility] Work Phone: 01-05-2022 09:56-0400 Body mass index (BMI) [Ratio] 32.3 kg/m2 Dr. Jessi Olguin Work Phone: [facility] Work Phone: 01-05-2022 09:56-0400 Body weight 117.[address] Jessi Olguin Work Phone: [facility] Work Phone: 12-29-2021 13:48-0400 Body temperature 97.5 [degF] Dr. Jessi Olguin Work Phone: [facility] Work Phone: 12-29-2021 13:48-0400 Diastolic blood pressure 72 mm[Hg] Dr. Jessi Olguin Work Phone: [facility] Work Phone: 12-29-2021 13:48-0400 Heart rate 70 /min Dr. Jessi Olguin Work Phone: [facility] Work Phone: 12-29-2021 13:48-0400 Respiratory rate 17 /min Dr. Jessi Olguin Work Phone: [facility] Work Phone: 12-29-2021 13:48-0400 SaO2% (BldA) [Mass fraction] 97 % Dr. Jessi Olguin Work Phone: [facility] Work Phone: 12-29-2021 13:48-0400 Systolic blood pressure 117 mm[Hg] Dr. Jessi Olguin Work Phone: [facility] Work Phone: 12-21-2021 08:41-0400 Body mass index (BMI) [Ratio] 33.2 kg/m2 Dr. Jessi Olguin Work Phone: [facility] Work Phone: 12-21-2021 08:41-0400 Body temperature 97.5 [degF] Dr. Jessi Olguin Work Phone: [facility] Work Phone: 12-21-2021 08:41-0400 Diastolic blood pressure 58 mm[Hg] Dr. Jessi Olguin Work Phone: [facility] Work Phone: 12-21-2021 08:41-0400 Heart rate 85 /min Dr. Jessi Olguin Work Phone: [facility] Work Phone: 12-21-2021 08:41-0400 Respiratory rate 16 /min Dr. Jessi Olguin Work Phone: [facility] Work Phone: 12-21-2021 08:41-0400 Systolic blood pressure 106 mm[Hg] Dr. Jessi Olguin Work Phone: [facility] Work Phone: 12-01-2021 00:41-0400 Body weight 120.[address] Jessi Olguin Work Phone: [facility] Work Phone: 11-23-2021 10:28-0400 Body mass index (BMI) [Ratio] 33.2 kg/m2 Dr. Jessi Olguin Work Phone: [facility] Work Phone: 11-23-2021 10:28-0400 Body temperature 98.3 [degF] Dr. Jessi Olguin Work Phone: [facility] Work Phone: 11-23-2021 10:28-0400 Diastolic blood pressure 57 mm[Hg] Dr. Jessi Olguin Work Phone: [facility] Work Phone: 11-23-2021 10:28-0400 Heart rate 98 /min Dr. Jessi Olguin Work Phone: [facility] Work Phone: 11-23-2021 10:28-0400 Respiratory rate 20 /min Dr. Jessi Olguin Work Phone: [facility] Work Phone: 11-23-2021 10:28-0400 Systolic blood pressure 102 mm[Hg] Dr. Jessi Olguin Work Phone: [facility] Work Phone: 11-14-2021 09:22-0400 Body height 190.[address] Jessi Olguin Work Phone: [facility] Work Phone: 11-14-2021 09:22-0400 Body mass index (BMI) [Ratio] 32.3 kg/m2 Dr. Jessi Olguin Work Phone: [facility] Work Phone: 11-14-2021 09:22-0400 Body weight 117.[address] Jessi Olguin Work Phone: [facility] Work Phone: 11-14-2021 09:22-0400 Diastolic blood pressure 60 mm[Hg] Dr. Jessi Olguin Work Phone: [facility] Work Phone: 11-14-2021 09:22-0400 Heart rate 73 /min Dr. Jessi Olguni Work Phone: [facility] Work Phone: 11-14-2021 09:22-0400 Respiratory rate 18 /min Dr. Jessi Olguin Work Phone: [facility] Work Phone: 11-14-2021 09:22-0400 Systolic blood pressure 90 mm[Hg] Dr. Jessi Olguin Work Phone: [facility] Work Phone: 11-01-2021 01:13-0400 Body weight 120.[address] Jessi Olguin Work Phone: [facility] Work Phone: 10-26-2021 10:38-0400 Body mass index (BMI) [Ratio] 33.2 kg/m2 Dr. Jessi Olguin Work Phone: [facility] Work Phone: 10-26-2021 10:38-0400 Body temperature 96.5 [degF] Dr. Jessi Olguin Work Phone: [facility] Work Phone: 10-26-2021 10:38-0400 Diastolic blood pressure 57 mm[Hg] Dr. Jessi Olguin Work Phone: [facility] Work Phone: 10-26-2021 10:38-0400 Heart rate 93 /min Dr. Jessi Olguin Work Phone: [facility] Work Phone: 10-26-2021 10:38-0400 Respiratory rate 18 /min Dr. Jessi Olguin Work Phone: [facility] Work Phone: 10-26-2021 10:38-0400 Systolic blood pressure 99 mm[Hg] Dr. Jessi Olguin Work Phone: [facility] Work Phone: 10-05-2021 09:59-0400 Body height 190.[address] Jessi Olguin Work Phone: [facility] Work Phone: 10-05-2021 09:59-0400 Body mass index (BMI) [Ratio] 33.2 kg/m2 Dr. Jessi Olguin Work Phone: [facility] Work Phone: 10-05-2021 09:59-0400 Body temperature 97.1 [degF] Dr. Jessi Olguin Work Phone: [facility] Work Phone: 10-05-2021 09:59-0400 Body weight 120.[address] Jessi Olguin Work Phone: [facility] Work Phone: 10-05-2021 09:59-0400 Diastolic blood pressure 55 mm[Hg] Dr. Jessi Olguin Work Phone: [facility] Work Phone: 10-05-2021 09:59-0400 Heart rate 78 /min Dr. Jessi Olguin Work Phone: [facility] Work Phone: 10-05-2021 09:59-0400 Respiratory rate 18 /min Dr. Jessi Olguin Work Phone: [facility] Work Phone: 10-05-2021 09:59-0400 Systolic blood pressure 102 mm[Hg] Dr. Jessi Olguin Work Phone: [facility] Work Phone: 07-25-2021 08:27-0500 Body mass index (BMI) [Ratio] 32.5 kg/m2 Dr. Jessi Olguin Work Phone: [facility] Work Phone: 07-25-2021 08:27-0500 Body temperature 97.2 [degF] Dr. Jessi Olguin Work Phone: [facility] Work Phone: 07-25-2021 08:27-0500 Body weight 121.[address] Jessi Olguin Work Phone: [facility] Work Phone: 07-25-2021 08:27-0500 Diastolic blood pressure 61 mm[Hg] Dr. Jessi Olguin Work Phone: [facility] Work Phone: 07-25-2021 08:27-0500 Heart rate 88 /min Dr. Jessi Olguin Work Phone: [facility] Work Phone: 07-25-2021 08:27-0500 Respiratory rate 16 /min Dr. Jessi Olguin Work Phone: [facility] Work Phone: 07-25-2021 08:27-0500 SaO2% (BldA) [Mass fraction] 95 % Dr. Jessi Olguin Work Phone: [facility] Work Phone: 07-25-2021 08:27-0500 Systolic blood pressure 95 mm[Hg] Dr. Jessi Olguin Work Phone: [facility] Work Phone: Encounters Encounter Date Encounter Type Care Provider Facility Start: 11-10-2024 End: 11-10-2024 Patient encounter procedure TIMBER POISONER Michelle Santos [facility] Work Phone: Start: 11-10-2024 End: 11-10-[address] Jessi Olguin MD Work Phone: [facility] Work Phone: Start: 10-14-2024 End: 10-14-[address] Jessi Olguin MD Work Phone: [facility] Work Phone: Start: 10-14-2024 End: 10-14-[address] Jessi Olguin MD -Ultrasound [facility] Work Phone: Start: 10-14-2024 End: 10-14-2024 Dr. Jessi Olguin MD -Ultrasound [facility] Work Phone: Start: 10-14-2024 End: 10-14-2024 ambulatory Jessi Olguin Facility:[facility] Start: 09-21-2024 End: 09-21-2024 Dr. Gary Ashby MD -Emergency Departmen t Work Phone: Start: 09-21-2024 End: 09-21-2024 Emergency department patient visit Dr. Gary Ashby MD -Emergency Department Work Phone: Start: 09-04-2024 End: 09-04-[address] Jessi Olguin MD Work Phone: [facility] Work Phone: Start: 09-04-2024 End: 09-04-[address] Jessi Olguin MD -Laboratory, [facility] Start: 09-04-2024 End: 09-04-2024 Dr. Jessi Olguin MD -Laboratory [facility] Start: 09-04-2024 End: 09-04-2024 ambulatory Jessi Mohler Facility:[facility] Start: 09-03-2024 Non-patient / Non-visit Dr. Wood Braxton MD -[place] Work Phone: Start: 09-03-2024 Dr. Wood Braxton MD -[facility] Work Phone: Start: 09-02-2024 Non-patient / Non-visit Dr. Wood Braxton MD -[place] Work Phone: Start: 09-02-2024 Dr. Wood Braxton MD -[facility] Work Phone: Start: 09-01-2024 ambulatory Shonda Gaston Facility :[facility] Start: 09-01-2024 End: 09-03-2024 Evaluation and management of inpatient Dr. Shonda Gaston MD -Progressive Care Unit Work Phone: Start: 09-01-2024 End: 09-03-2024 Dr. Wood Braxton MD -Progressive Care Un it Work Phone: Start: 09-01-2024 End: 09-01-2024 Patient encounter procedure Sanaz Angel [place] -[facility] Work Phone: Start: 09-01-2024 End: 09-01-2024 Sanaz Angel [place] -[facility] Work Phone: Start: 09-01-2024 End: 09-01-2024 ambulatory Jessi Olguin Facility:[facility] Start: 08-03-2024 End: 08-03-2024 Patient encounter procedure Mey Rice TIMBER POISONER-C -[facility] Work Phone: Start: 08-03-2024 End: 08-03-2024 Mey Rice [facility]BER POISONER-C -[facility] Work Phone: Start: 08-03-2024 End: 08-03-2024 ambulatory Jessi Olguin Facility:[facility] Start: 07-17-2024 ambulatory Ezequiel Barrios ty:[facility] Start: 07-17-2024 Registered Referred Ezequiel Toure [facility] Start: 07-17-2024 Ezequiel Toure [facility] Start: 07-10-2024 ambulatory Jessi Olguin Facility:[facility] Start: 07-10-2024 End: 07-10-2024 Patient encounter procedure Danni Davis TIMBER POISONER-C -Laboratory Work Phone: Start: 07-10-2024 End: 07-10-2024 Danni Davis TIMBER POISONER-C -Laboratory Work Phone: Start: 07-10-2024 End: 07-10-2024 ambulatory Danni Davis NP Facility:[facility] Start: 07-07-2024 End: 07-07-2024 Dhiraj Carlton DO -Emergency Departmen t Work Phone: Start: 07-07-2024 End: 07-07-2024 Emergency department patient visit Dhiraj Andes DO -Emergency Department Work Phone: Start: 06-27-2024 End: 07-01-2024 Evaluation and management of inpatient DR SEDRICK ALEXANDER MD [facility] Start: 06-27-2024 ambulatory Jessi Olguin Facility:[facility] Start: 06-27-2024 Non-patient / Non-visit Dr. Gracia Chavez MD -[facility] Start: 06-27-2024 Dr. Gracia Chavez MD [facility] Start: 06-27-2024 Non-patient / Non-visit Dr. Jessi [facility] Work Phone: Start: 06-27-2024 Dr. Jessi Adams [facility] Work Phone: Start: 06-26-2024 Non-patient / Non-visit Dr. Gracia Chavez MD [facility] Start: 06-26-2024 Dr. Gracia Chavez MD [facility] Start: 06-26-2024 Non-patient / Non-visit Dr. Jessi [facility] Work Phone: Start: 06-26-2024 Dr. Jessi [facility] Work Phone: Start: 06-25-2024 ambulatory [facility] Facility:[facility] Start: 06-25-2024 Non-patient / Non-visit Dr. Gracia Chavez MD [facility] Start: 06-25-2024 Dr. Gracia Chavez MD [facility] Start: 06-25-2024 Non-patient / Non-visit Dr. Jessi Kaur DO [facility] Work Phone: Start: 06-25-2024 Dr. Jessi Adams [facility] Work Phone: Start: 06-24-2024 Non-patient / Non-visit Dr. Jessi Leon [facility] Work Phone: Start: 06-24-2024 Dr. Jessi [facility] Work Phone: Start: 06-24-2024 [facility] Facility:[facility] Start: 06-24-2024 End: 06-27-2024 Evaluation and management of inpatient Dr. Jessi Kaur DO -Intensive Care Unit Work Phone: Start: 06-24-2024 End: 06-27-2024 Dr. Jessi Kaur DO -Intensive Care Unit Work Phone: Start: 05-25-2024 End: 05-25-2024 Emergency department [facility] Work Phone: Start: 03-22-2024 End: 03-22-2024 Emergency department patient visit Jessi Olguin Facility:[facility] Start: 02-25-2024 End: 02-25-2024 ambulatory Jessi Olguin Facility:[facility] Start: 01-09-2024 ambulatory Jessi Olguin Facility:[facility] Start: 12-23-2023 End: 12-23-2023 ambulatory Jessi Olguin Facility:[facility] Start: 11-28-2023 End: 11-28-2023 ambulatory Alejandro Talbot Facility:[facility] Start: 09-19-2023 End: 10-01-[address] Jessi Olguin Work Phone: [facility] Work Phone: Start: 09-19-2023 End: 10-01-[address] Jessi Olguin Work Phone: [facility] Work Phone: Start: 08-29-2023 End: 09-01-[address] Jessi Olguin Work Phone: [facility] Work Phone: Start: 08-29-2023 End: 09-01-[address] Jessi Olguin Work Phone: [facility] Work Phone: Start: 08-01-2023 End: 08-01-[address] Jessi Olguin Work Phone: [facility] Work Phone: Start: 08-01-2023 End: 08-01-[address] Jessi Olguin Work Phone: [facility] Work Phone: Start: 07-09-2023 End: 07-09-[address] Jessi Olguin Work Phone: [facility] Work Phone: Start: 06-27-2023 End: 07-03-[address] Jessi Olguin Work Phone: [facility] Work Phone: Start: 06-27-2023 End: 07-03-[address] [facility] Work Phone: Start: 05-30-2023 End: 06-02-[address] Jessi Olguin Work Phone: [facility] Work Phone: Start: 05-30-2023 End: 06-02-[address] Jessi Olguin Work Phone: [facility] Work Phone: Start: 05-16-[address] Jessi Olguin Work Phone: [facility] Work Phone: Start: 05-13-2023 End: 05-13-[address] Jessi Olguin Work Phone: [facility] Work Phone: Start: 05-13-2023 End: 05-13-[address] Jessi Olguin Work Phone: [facility] Work Phone: Start: 05-09-2023 End: 05-09-[address] Jessi Olguin Work Phone: [facility] Work Phone: Start: 05-09-2023 End: 05-09-[address] Jessi Olguin Work Phone: [place] [facility] Start: 05-09-[address] [facility] Work Phone: Start: 05-02-2023 End: 05-02-[address] Jessi Olguin Work Phone: [facility] Work Phone: Start: 05-02-2023 End: 05-02-[address] Jess[facility]gu[facility] Work Phone: Start: 03-28-2023 End: 04-02-[address] Jessi Olguin Work Phone: [facility] Work Phone: Start: 03-28-2023 End: 04-02-[address] Jessi Olguin Work Phone: [facility] Work Phone: Start: 03-13-2023 End: 03-13-[address] Jess[facility] Work Phone: Start: 02-28-2023 End: 03-02-[address] Jessi Olguin Work Phone: [facility] Work Phone: Start: 02-28-2023 End: 03-02-[address] Jesis Olguin Work Phone: [facility] Work Phone: Start: 12-13-2022 End: 12-13-[address] Jessi Olguin Work Phone: [facility] Work Phone: Start: 07-13-2022 End: 07-13-2022 ambulatory [facility] Work Phone: Start: 07-13-2022 End: 07-13-2022 Patient encounter procedure [facility] Start: 07-10-2022 End: 07-11-2022 Emergency department patient visit [facility]-Emergency Department Start: 03-30-2022 End: 03-30-[address] Jessi Olguin Work Phone: [facility] Work Phone: Start: 03-30-2022 End: 03-30-[address] Jessi Olguin Work Phone: [facility] Start: 02-02-2022 End: 02-02-[address] Jessi Olguin Work Phone: [facility] Start: 01-22-2022 End: 01-22-[address] Jessi Olguin Work Phone: [facility]-P[facility] Medicine [facility] Start: 01-19-2022 End: 01-19-[address] Jessi Olguin Work Phone: [facility] Start: 01-12-2022 End: 01-12-[address] Jessi Olguin Work Phone: [facility] Start: 01-05-2022 Non-patient / Non-visit Dr. Jessi Olguin Work Phone: [facility] Start: 01-05-2022 End: 01-05-2022 Admission to same day surgery center Dr. Jessi Olguin Work Phone: [facility] Start: 12-29-2021 End: 12-29-[address] Jessi Olguin Work Phone: [facility] Start: 12-21-2021 Non-patient / Non-visit Dr. Jessi Olguin Work Phone: [facility] Start: 12-21-2021 End: 12-21-[address] Jessi Olguin Work Phone: [facility] Start: 12-14-2021 Non-patient / Non-visit Dr. Jessi Olguin Work Phone: [facility] Start: 11-29-2021 End: 11-29-[address] [facility] Start: 11-23-2021 Non-patient / Non-visit Dr. Jessi Olguin Work Phone: [facility] Start: 11-23-2021 End: 11-30-[address] Jessi Olguin Work Phone: [facility] Start: 11-16-2021 Non-patient / Non-visit Dr. Jessi Olguin Work Phone: [facility] Start: 11-14-2021 End: 11-14-[address] Jessi Olguin Work Phone: [facility] Start: 11-09-2021 Non-patient / Non-visit Dr. Jessi Olguin Work Phone: [facility] Start: 11-02-2021 Non-patient / Non-visit Dr. Jessi Olguin Work Phone: [facility] Start: 10-26-2021 Non-patient / Non-visit Dr. Jessi Olguin Work Phone: [facility] Start: 10-26-2021 End: 10-31-[address] Jessi Olguin Work Phone: [facility] Start: 10-12-2021 Non-patient / Non-visit Dr. Jessi Olguin Work Phone: [facility] Start: 10-05-2021 Non-patient / Non-visit Dr. Jessi Olguin Work Phone: [facility] Start: 10-05-[address] [facility] Start: 10-03-2021 End: 10-03-[address] Jessi Olguin Work Phone: [facility] Start: 08-01-2021 End: 08-01-[address] Jessi Olguin Work Phone: [facility]-Pulmonary Services/Neurology Start: 07-25-2021 End: 07-25-[address] [facility] Start: 07-04-2021 End: 07-04-[address] Jessi Olguin Work Phone: [facility] Start: 07-03-2021 End: 07-03-[address] Jessi Olguin Work Phone: [facility] Start: 06-10-2018 End: 06-11-2018 Patient encounter procedure [...] Amelie lópez- BS [employer] ICD- D233, SN: [id number]. RA- 7841, SN: [id number]. RV- 0676, SN: [id number] Start: 06-27-2024 Plain chest X-ray Dr. Camryn [...] Date Care Activity Detail Author Start: 09-21-2024 [facility] Start: 09-03-2024 Patient discharge [facility] Start: 09-02-2024 [facility] Start: 09-02-2024 Referral to service [facility] Start: 09-01-2024 Assessment of risk o f venous thromboembolism [facility] Start: 09-01-2024 Care regimes management [facility] Start: 09-01-2024 Fall prevention [facility] Start: 09-01-2024 Inhalation therapy procedure [facility] Start: 09-01-2024 Insertion of cathete r into peripheral vein [facility] Start: 09-01-2024 Introduction of urin daphne catheter [facility] Start: 09-01-2024 Measuring intake and output [facility] Start: 09-01-2024 Notification of physician [facility] Start: 09-01-2024 Oxygen therapy [facility] Start: 09-01-2024 Providing care accor ding to standard [facility] Start: 09-01-2024 Provision of activit y privileges [facility] Start: 09-01-2024 Referral to occupati onal therapist [facility] Start: 09-01-2024 Referral to service [facility] Start: 09-01-2024 End: 09-01-2024 [facility] Start: 09-01-2024 Following clinical p athway protocol [facility] Start: 09-01-2024 Legionella pneumophi la Ag [Presence] in Urine [facility] Start: 09-01-2024 Respiratory pathogen s DNA and RNA panel - Respiratory specimen by ZOE with probe detection [facility] Start: 09-01-2024 Streptococcus pneumo niae antigen assay [facility] Start: 09-01-2024 Verification routine [facility] Start: 09-01-2024 Plain X-ray abdomen Abdomen Si ngle View (Portable) [facility] Start: 09-01-2024 Admission procedure [facility] Start: 09-01-2024 Hospital admission, emergency, from emergency room, medical nature [facility] Start: 09-01-2024 [facility] Start: 09-01-2024 [facility] Start: 09-01-2024 Consultation [facility] Start: 09-01-2024 Patient referral to dietitian [facility] Start: 07-07-2024 [facility] Start: 06-27-2024 Patient discharge [facility] Start: 06-25-20[address] referral [facility] Work Phone: Start: 06-25-2024 Patient education [facility] Start: 06-25-2024 Provision of activit y privileges [facility] Start: 06-25-2024 Pulse taking [facility] Start: 06-25-2024 Wound care [facility] Start: 06-25-2024 Cardiac monitoring [facility] Start: 06-25-2024 Cardiac rehabilitati on - phase 1 [facility] Start: 06-25-2024 Cardiac rehabilitati on - phase 2 [facility] Start: 06-25-2024 End: 06-25-2024 Notification of physician [facility] Start: 06-25-2024 Oxygen therapy [facility] Start: 06-25-2024 Patient discharge [facility] Start: 06-25-2024 Systemic arterial pr essure monitoring [facility] Start: 06-25-2024 End: 06-25-2024 Taking patient vital signs [facility] Start: 06-25-2024 Vascular disease ris k assessment [facility] Start: 06-25-2024 Vital signs measurements [facility] Start: 06-25-2024 End: 06-25-2024 [facility] Start: 06-24-2024 End: 06-25-2024 [facility] Start: 06-24-2024 Referral to complaints coordinator [facility] Start: 06-24-2024 Wound care [facility] Start: 06-24-2024 Care regimes management [facility] Start: 06-24-2024 Notification of physician [facility] Start: 06-24-2024 Consultation for treatment [facility] Start: 06-24-2024 Following clinical p athway protocol [facility] Start: 06-24-2024 Following clinical p athway protocol [facility] Start: 06-24-2024 Assessment of risk o f venous thromboembolism [facility] Start: 06-24-2024 Catheterization of vein [facility] Start: 06-24-2024 Continuous pulse oximetry [facility] Start: 06-24-2024 Insertion of cathete r into peripheral vein [facility] Start: 06-24-2024 Measuring intake and output [facility] Start: 06-24-2024 Notification of physician [facility] Start: 06-24-2024 Patient referral to dietitian [facility] Start: 06-24-2024 Providing care accor ding to standard [facility] Start: 06-24-2024 Referral to occupati onal therapist [facility] Start: 06-24-2024 Referral to service [facility] Start: 06-24-2024 Speech therapy assessment [facility] Start: 06-24-2024 Vital signs measurements [facility] Start: 06-24-2024 Admission procedure [facility] Start: 05-25-2024 [facility] Start: 01-05-2022 Patient discharge [facility] Work Phone: Start: 01-05-2022 Anes integ musc & nr v head neck&posterior trunk ANESTH HEAD/NECK/PTRUNK [facility] Work Phone: Start: 01-05-2022 Exc b9 lesion mrgn x cp sk tg t/a/l >4.0 cm EXC TR-EXT B9+CLAY >4.0 CM [facility] Work Phone: Start: 01-05-2022 Repair intermediate s/a/t/e 7.6-12.5 cm INTMD RPR S/TR/EXT 7.6-12.5 [facility] Work Phone: Start: 11-29-2021 [facility] Work Phone: CT Chest WO contrast [facility] Lipid 1996 panel - S bianca or Plasma [facility] Magnesium measurement [facility] Microbial culture, routine Wound Culture [facility] Work Phone: Patient Education [facility] Work Phone: Patient referral [facility] Work Phone: Troponin T.cardiac [Mass/volume] in Serum or Plasma by High sensitivity method [facility] Immunizations Immunization Date Immunization Notes Care Provider [facility] 06-26-2024 influenza virus vaccine, unspecified formulation DR SEDRICK ALEXANDER MD [facility] 06-26-2024 influenza, high dose seasonal, preservative-free Dr. Jessi Olguin MD Work Phone: [facility] 03-13-2023 influenza virus vaccine, unspecified formulation DR SEDRICK ALEXANDER MD [facility] 03-13-2023 influenza, injectabl e, quadrivalent, preservative free Dr. Jessi Olguin Work Phone: [facility] 01-27-2021 SARS-CoV-2 mRNA (tozinameran) vaccine DR SEDRICK ALEXANDER MD [facility] 01-06-2021 SARS-CoV-2 mRNA (tozinameran) vaccine DR SEDRICK ALEXANDER MD [facility] 02-02-[address] Jessi Olguin Work Phone: [facility] 01-11-2020 tetanus toxoid, redu barry diphtheria toxoid, and acellular pertussis vaccine, adsorbed DR SEDRICK ALEXANDER MD [facility] 03-13-2018 influenza virus vaccine, unspecified formulation DR SEDRICK ALEXANDER MD [facility] 04-08-2017 influenza virus vaccine, unspecified formulation DR SEDRICK ALEXANDER MD [facility] 03-30-2016 influenza virus vaccine, unspecified formulation DR SEDRICK ALEXANDER MD [facility] 05-17-2014 influenza virus vaccine, unspecified formulation DR SEDRICK ALEXANDER MD [facility] 03-20-2013 influenza virus vaccine, unspecified formulation DR SEDRICK ALEXANDER MD [facility] 03-19-2012 influenza virus vaccine, unspecified formulation DR SEDRICK ALEXANDER MD [facility] Payers Date Payer Category Payer Private Health Insurance [id number] 2024 Medicare [id number] 2023 Self-pay [id number] 2018 Medicare [id number] 2018 Private Health Insurance [id number] Private Health Insurance [id number] 2011 Medicare [id number] 1950 Unknown [id number] 2.16.8 40.1.303605.3.579.2.627 1950 Unknown [id number] 2.16.8 40.1.478903.3.579.2.627 1950 Unknown [id number] 2.16.8 40.1.057777.3.579.2.627 Unknown [id number] 2.16.8 40.1.315390.3.579.2.462 Unknown [id number] 2.16.8 40.1.226720.3.579.2.462 Unknown [id number] 2.16.8 40.1.653687.3.579.2.462 Unknown [id number] 2.16.8 40.1.904760.3.579.2.462 Unknown [id number] 2.16.8 40.1.773052.3.579.2.462 Unknown [id number] 2.16.8 40.1.211714.3.579.2.462 Unknown [id number] 2.16.8 40.1.491910.3.579.2.462 Unknown [id number] 2.16.8 40.1.768768.3.579.2.462 Unknown [id number] 2.16.8 40.1.732421.3.579.2.462 Unknown [id number] 2.16.8 40.1.116386.3.579.2.462 Unknown [id number] 2.16.8 40.1.014938.3.579.2.462 Unknown [id number] 2.16.8 40.1.706682.3.579.2.462 Unknown [id number] 2.16.8 40.1.233537.3.579.2.462 Unknown [id number] 2.16.8 40.1.826180.3.579.2.462 Unknown [id number] 2.16.8 40.1.082392.3.579.2.462 Unknown [id number] 2.16.8 40.1.419609.3.579.2.462 Unknown [id number] 2.16.8 40.1.750071.3.579.2.462 Unknown [id number] 2.16.8 40.1.093510.3.579.2.462 Unknown [id number] 2.16.8 40.1.675392.3.579.2.462 Unknown [id number] 2.16.8 40.1.967498.3.579.2.462 Unknown [id number] 2.16.8 40.1.224493.3.579.2.462 Unknown [id number] 2.16.8 40.1.274606.3.579.2.462 Unknown [id number] 2.16.8 40.1.646736.3.579.2.462 Unknown [id number] 2.16.8 40.1.820199.3.579.2.462 Unknown [id number] 2.16.8 40.1.412490.3.579.2.462 Unknown [id number] 2.16.8 40.1.077502.3.579.2.462 Unknown [id number] 2.16.8 40.1.279596.3.579.2.462 Unknown [id number] 2.16.8 40.1.022975.3.579.2.462 Social History Date Type Detail Facility Start: 10-05-2021 End: 03-13-2023 Tobacco smoking status NHIS Unknown if ever smoked [facility] Start: 08-14-2020 None [facility] Start: 08-14-2020 Spouse/ Signif icant Other [facility] Start: 02-13-2020 Cigarettes [facility] Start: 1950 Sex Assigned At Male [facility] Start: 06-27-2024 Tobacco smoking status Heavy t obacco smoker (finding) [facility] Start: 09-01-2024 End: 09-21-2024 Tobacco smoking status Ex-smoker (finding) [facility] Sexual Orientation [facility] Start: 04-27-2019 End: 09-10-2024 Sex Male (finding) [facility] Medical Equipment Procedure Code Equipment Code Equipment [...] Kyphoplasty SAUD KYPHO AUTOPLEX FDA Start: 10-31-2018 [id number] FDA Start: 06-25-2024 Blood Sugar Diagnostic (True Metrix Glucose Test Strip) strip Start: 11-10-2024 Goals Date Patient Goal Desired Activity /State Functional Status Date Assessment Result Facility 09-03-2024 Functional status Ambulates;Bathroom Priv ilege [facility] Work Phone: 07-01-2024 Functional Status Mod A [facility] 07-01-2024 Functional Status [facility] 07-01-2024 Functional Status 7am-3pm [facility] 07-01-2024 Functional Status [facility] 06-30-2024 Functional Status [facility] 06-30-2024 Functional Status [facility] 06-30-2024 Functional Status NPO Status Maintained A [facility] 06-30-2024 Functional Status [facility] 06-30-2024 Functional Status left knee high removed/ off [facility] 06-30-2024 Functional Status [facility] 06-30-2024 Functional Status [facility] 06-29-2024 Functional Status [facility] 06-29-2024 Functional Status Mod A [facility] 06-29-[address] [facility] 06-29-[address] [facility] 06-29-2024 Functional Status Patient refused [facility] 06-29-[address] [facility] 06-28-2024 Functional Status Afternoon Snack Percent 100 [facility] 06-28-2024 Functional Status [facility] 06-28-2024 [facility] 06-27[facility] Functional Status 55 [facility] 06-26-2024 Functional status Bedrest [facility] Work Phone: Mental Status Date Assessment Result Facility 09-03-2024 Cognitive function Voice/Name [facility] Work Phone: 09-01-2024 Cognitive function Level Of Cons ciousness Awake;Alert;Appropriate;Follow s Commands [facility] Work Phone: 07-01-2024 Mental Status Orientation Oriented x 4 [facility] 07-01-2024 Mental Status [facility] 06-30-2024 [facility]24 Mental Status [facility] 06-27-2024 Cognitive function Voice/Name [facility] Work Phone: 01-05-2022 Cognitive function Awake [facility] Work Phone: Clinical Notes 02-14-2023 to 10-14-2024 Note Date & Type Note Facility 10-14-2024 Radiology Diagnostic study note [facility] 09-03-2024 Note [facility] 09-01-2024 History and physi adrianna note [facility] 09-01-2024 Radiology Diagnostic study note [facility] Imaging Services [address] [place] [address] Chest PA and Lateral MR#: [id number] Acct: [id number] Name: LATRICE TURCIOS Rep #: [id number] : [id number] M 74 From: Saurabh Díaz DO PCP: Dr. Jessi Olguin MD Status: REG ER Study:Chest PA and Lateral Date of Exam: 09/01/24 Exam# [id number] Ordering Dr: Jessi Calloway DO PROCEDURE: CHEST [...] Calloway DO; Dr. Jessi Olguin MD ~ Utility Bag Assembler: Signed [facility] 08-03-2024 Evaluation note Diagnosis Onset Date Resolution [...] 01 9:02pm Pneumonia resolved September 01 9:02pm [facility] Work Phone: 1(426) 662-994701-29-2025 Note Date of Service 07/01 Subjective No [...] started on IV amiodarone and transferred to [facility] for ICD evaluation. Echocardiogram repeated during this [...] YOSI VERA MD on 07/01/2024 03:19 PM [id number] Pastoral care Progress note Pastoral Care Note [...] by Rony Crowder on 07/01/2024 04:43 PM [id number] Hospital Discharge instructions Patient Education 07/01/2024 13:32:57 [...] sends information from the device to your complaints coordinator (heart doctor) office. How will I get [...] where you sleep. The monitor will automatically brick picker heart signals and send the information to [...] you have questions. [facility]: [phone] Ask for the Device Clinic or joe-in extension [phone] when prompted. Device Clinic Location: [facility] (not the physician office building). Enter the [facility] and take the elevators to [...] Your device card will tell you the shredder operator. Using the search box: Rayku: [employer] Communicator quick start oPatient Help: [employer]: [...] Do not touch the radio antenna or [facility] radio antenna that are in operation. Do not touch spark plugs or distributor wires of a running car or veterinary surgeon. Avoid the fenced enclosure areas of a [...] ICD. You must tell your surgeon or Weblogic Administrator before you undergo any procedure or surgery. This includes, but is not limited to: any surgery, colonoscopy and/or EGD s. Follow Up Care 06/27/2024 09:11:53 With:ELBA WOOD MD Address: [address] [facility] [address] [address] [phone] When:5 to 7 days With:SEDRICK ALEXANDER MD Address: [address] [place] [address] [phone] When:5 to 7 days With:Discharge to [facility] Level of Care Address:Unknown When:1-2 days With:JESSI OLGUIN MD Address: [facility] [address] [place] [address]- When:1-2 days Comments:Please call the office to schedule a hospital follow up appointment. With:[facility] Address: [address] [place] [address] [address]- [phone] When:07/16/2024 09:45:00 With:DEVICE CLINIC Address: [address] [place] [address] [address]- [phone] When:09/29/2024 13:45:00 With:[facility] Address:Unknown When: Unknown Comments:11 [facility] 01-29-2025 Note Date of Service 07/01 Subjective [...] started on IV amiodarone and transferred to [facility] for ICD evaluation. Echocardiogram repeated during this [...] YOSI VERA MD on 07/01/2024 03:19 PM [id number] Note Discharge Instructions Thank you for allowing [facility] to assist you with your healthcare needs. The following is importantdischarge information regarding your hospital visit. Your Diagnosis VT (ventricular tachycardia) What to do next Scheduled Follow-Up Appointments Appointment Type When Where Contact Information StatusCV Incision Check 07/16/2024 09:45 AM EST [facility] Confirmed CV Office Procedure ICD 09/29/2024 01:45 PM EDT [facility] Confirmed CV Remote Procedure HM 12/30/2024 06:45 PM EDT [facility] Confirmed Follow Up Appointments Follow Up with ELBA WOOD MD When:Within 5 to 7 days Where:[address] [place] [address]- [phone] Follow Up with SEDRICK ALEXANDER MD When:Within 5 to 7 days Where:[address] [place] [address]- [phone] Follow Up with Discharge to [facility] Level of Care When:Within 1-2 days Follow Up with JESSI OLGUIN MD When:Within 1-2 days Where:[facility] [address] [place] [address]- Additional Information: Please call the office to schedule a hospital follow up appointment. Follow Up with [facility]MISS[facility]K [facility] Additional Information: 11 Follow Up with [facility] When:07/16/2024 09:45 AM EST Where:[address] [facility]. [address] [place], [place] [address]- [phone] Follow Up with DEVICE CLINIC When:09/29/2024 01:45 PM EDT Where:[address] [facility]. [address] [place] [address]- [phone] The Following Activity and Diet Have Been [...] and or supplements as they may interact [facility] medications. What How Much When Instructions Last Dose New clopidogrel (Plavix 75 mg oral tablet) 1 tab(s) by mouth Once a day Refills: 3 Pickup at [facility] New metoprolol (Toprol-XL 25 mg oral tablet, extended release) 1 tab(s) by mouth Once a day with a meal Refills: 3 Pickup at [facility] New ramipril (ramipril 2.5 mg oral capsule) 1 cap by mouth Once a day Refills: 3 Pickup at [facility] Changed rivaroxaban (Xarelto 20 mg oral tablet) 1 tab(s) by mouth With supper Pickup at [facility] Unchanged cholecalciferol (Vitamin D3) 100 Microgram [...] TABLET BY MOUTH EVERY DAY Pharmacy Information [facility]: [address] [place], [place] [id number] [phone] Please take this list to your next [...] have an allergic reaction if you are -Russian. Call your doctor at once if you [...] may report side effects to FDA at 4-018-SKC-3861. What other drugs will affect ramipril? Tell [...] may affect ramipril. This includes prescription and etaw-vkx-lxquvnv medicines, vitamins, and herbal products. Not all [...] to ensure that the information provided by [employer]. ('[employer]') is accurate, up-to-date, and complete, but no guarantee is made to that effect. Drug information contained herein may be time sensitive. [employer] information has been compiled for use by healthcare practitioners and consumers in the [place] and therefore [employer] does not warrant that uses outside of the [place] are appropriate, unless specifically indicated otherwise. [employer] drug information does not endorse drugs, diagnose patients or recommend therapy. [employer] drug information isan informational resource designed to [...] effective or appropriate for any given patient. [facility] does not assume any responsibility for any aspect of healthcare administered with the aid of information [facility] provides. The information contained herein is not intended to cover all possible uses, directions, precautions, warnings, drug interactions, allergic reactions, or adverse effects. If you have questions about the drugs you are taking, check with your doctor, nurse or pharmacist. Copyright 3842-9504 [facility] Tk20. Version: 15.. Revision Date: 10/03/2018. Education Materials [...] sends information from the device to your complaints coordinator (heart doctor) office. How will I get [...] where you sleep. The monitor will automatically brick picker heart signals and send the information to [...] you have questions. [facility]: [phone] Ask for the Device Clinic or joe-in extension [phone] when prompted. Device Clinic Location: [facility] (not the physician office building). Enter the [facility] and take the elevators to [...] Your device card will tell you the shredder operator. Using the search box: Rayku: [employer] Communicator quick start o Patient Help: [...] not touch the CB radio antenna or [facility] radio antenna that are in operation. Do not touch spark plugs or distributor wires of a running car or veterinary surgeon. Avoid the fenced enclosure areas of a [...] ICD. You must tell your surgeon or Weblogic Administrator before you undergo any procedure or surgery. This includes, but is not limited to: any surgery, colonoscopy and/or EGD s. Additional Information VACCINATE! IT SAVES LIVES! Members of the community who have not yet received the COVID-19 vaccine and would like to receive it can visit one of [facility] vaccine clinics. There are many vaccine clinic locations within the [facility]. For locations and available times, please visit [email or web address] It is important to note that some COVID mobile vaccine clinics are held outdoors and may be canceled in rainy or stormy conditions. To learn more about pediatric vaccinations (ages 5-11), we invite you to visit the [facility] webpage. [email or web address] learn more about the COVID-19 vaccine, we invite you to visit the CDC website for a list of frequently asked questions.https://www.cdc.gov/coronavirus/2019-ncov/vaccines/faq.html [facility] Patient Portal Access Instructions: Stay connected with your healthcare team and access your personal medical information anytime with the [facility] Patient Portal. Please follow the directions below to create your [facility]Bot account: 1.Access the email account you provided upon registration to the hospital/physician office.2.Look for an invitation email from [facility].3.Open the email and access the invitation link: AcceptInvitation to BrainBot.4.Fill in the required gaytan to create your account. To access your account, visit [employer]/White Cheetaht. Click the blue button labeled Access Patient [...] who you will allowto register on the [facility] for access to your information. You can also access the [facility] on the [place] [facility] isabela. Simply click on Patient Portal and then log into your account. If you would like to receive a full copy of your medical records, please contact the [facility] Medical Records Department by calling [phone], Saturday through Saturday between 8 a.m. and [...] Call your local pharmacy or go to [email or web address] My Vacation Home [email or web address] to find one close to you.3.Make use of household items: Use cat litter or old coffee grounds to dispose medications if other options arenot available. Mix your drugs with these household products, seal them in an airtight container andthrow it into the garbage. Call [facility]: [phone] to be sure your drugs can be [...] aware that I should contact my doctor. Patient/Php Developer Signature: Date/Time: Relationship to Patient: Witness Name/Signature: Date/Time: [facility] [id number] Note Discharge Instructions Thank you for allowing [facility] to assist you with your healthcare needs. The following is importantdischarge information regarding your hospital visit. Your Diagnosis VT (ventricular tachycardia) What to do next Scheduled Follow-Up Appointments Appointment Type When Where Contact Information StatusCV Incision Check 07/16/2024 09:45 AM EST [facility] ICD 09/29/2024 01:45 PM EDT [facility] Confirmed CV Remote Procedure HM 12/30/2024 06:45 PM EDT [facility] Confirmed Follow Up Appointments Follow Up with ELBA WOOD MD When:Within 5 to 7 days Where:[address] [place] [address] [phone] Follow Up with SEDRICK ALEXANDER MD When:Within 5 to 7 days Where:[address] [place] [address] [phone] Follow Up with Discharge to [place] [facility] Level of Care When:Within 1-2 days Follow Up with JESSI OLGUIN MD When:Within 1-2 days [facility] [address] [place] [address]- Additional Information: Please call the office to schedule a hospital follow up appointment. Follow Up with READMISSION RISK SCORE Additional Information: 11 Follow Up with INCISION CHECK When:07/16/2024 09:45 AM EST Where:[address] [address]- [phone] Follow Up with DEVICE CLINIC When:09/29/2024 01:45 PM EDT Where:[address] [place] [phone] The Following Activity and Diet Have Been [...] Once a day Refills: 3 Pickup at [facility] New metoprolol (Toprol-XL 25 mg oral tablet, extended release) 1 tab(s) by mouth Once a day with a meal Refills: 3 Pickup at [facility] New ramipril (ramipril 2.5 mg oral capsule) 1 cap by mouth Once a day Refills: 3 Pickup at [facility] Changed rivaroxaban (Xarelto 20 mg oral tablet) 1 tab(s) by mouth With supper Pickup at [facility] Unchanged cholecalciferol (Vitamin D3) 100 [...] TABLET BY MOUTH EVERY DAY Pharmacy Information [facility]: [address] [place], [place] [id number] [phone] Please take this list to your next [...] have an allergic reaction if you are -Russian. Call your doctor at once if you [...] may report side effects to FDA at 1-090-ZIO-6411. What other drugs will affect ramipril? Tell [...] may affect ramipril. This includes prescription and qgvi-aib-jikkcuo medicines, vitamins, and herbal products. Not all [...] to ensure that the information provided by [employer]. ('Multum') is accurate, up-to-date, and complete, but no guarantee is made to that effect. Drug information contained herein may be time sensitive. Ta[employer] information has been compiled for use by healthcare practitioners and consumers in the [place] and therefore [employer] does not warrant that uses outside of the [place] are appropriate, unless specifically indicated otherwise. [employer] drug information does not endorse drugs, diagnose patients or recommend therapy. [employer] drug information isan informational resource designed to [...] effective or appropriate for any given patient. [employer] does not assume any responsibility for any aspect of healthcare administered with the aid of information [employer] provides. The information contained herein is not intended to cover all possible uses, directions, precautions, warnings, drug interactions, allergic reactions, or adverse effects. If you have questions about the drugs you are taking, check with your doctor, nurse or pharmacist. Copyright 3622-8959 [employer]. Version: 15.01. Revision Date: 10/03/2018. Education Materials [...] sends information from the device to your complaints coordinator (heart doctor) office. How will I get [...] where you sleep. The monitor will automatically brick picker heart signals and send the information to [...] you have questions. [facility]: [phone] Ask for the Device Clinic or joe-in extension [phone] or [phone] when prompted. Device Clinic Location: [facility] (not the physician office building). Enter the [facility] and take the elevators to [...] Your device card will tell you the shredder operator. Using the search box: Rayku: Lattitude Communicator quick start o Patient Help: Medtronic: MyCareLink quick start o Patient Help: St Tom (Matthews): [email or web address] quick start o Patient Help: Other important [...] not touch the CB radio antenna or [facility] radio antenna that are in operation. Do not touch spark plugs or distributor wires of a running car or veterinary surgeon. Avoid the fenced enclosure areas of a [...] ICD. You must tell your surgeon or Weblogic Administrator before you undergo any procedure or surgery. This includes, but is not limited to: any surgery, colonoscopy and/or EGD s. Additional Information VACCINATE! IT SAVES LIVES! Members of the community who have not yet received the COVID-19 vaccine and would like to receive it can visit one of [facility] vaccine clinics. There are many vaccine clinic locations within the [facility]. For locations and available times, please visit https://gettheshot.coronavirus.[place].gov/. It is important to note that some COVID mobile vaccine clinics are held outdoors and may be canceled in rainy or stormy conditions. To learn more about pediatric vaccinations (ages 5-11), we invite you to visit the [facility] webpage. https://www.[facility].org/pages/0147-Yygqw-Auhmaahwvxo-Thyzpytxpr-Rubpq-Szi stions.htmlTo learn more about the COVID-19 vaccine, we invite you to visit the CDC website for a list of frequently asked questions.https://www.cdc.gov/coronavirus/2019-ncov/vaccines/faq.html [facility] Patient Portal Access Instructions: Stay connected with your healthcare team and access your personal medical information anytime with the [facility] [employer] Patient Portal. Please follow the directions below to create your [facility] account: 1.Access the email account you provided upon registration to the hospital/physician office.2.Look for an invitation email from [facility].3.Open the email and access the invitation link: AcceptInvitation to [facility].4.Fill in the required gaytan to create your account. To access your account, visit [facility]/White Cheetaht. Click the blue button labeled Access Patient Portal and then log in with the username and password that you created in the steps above. You will be able to view your test results, lab results, a summary of your visits, upcoming appointments and more. There is also a convenient messaging option where you can send secure messages to your Diasporavider. In addition, you will have the ability to download any documents or summaries to your computer and/or send the information securely to a physician. Remember that your healthcare information is confidential, so carefully consider who you will allowto register on the [facility] [employer] Patient Portal for access to your information. You can also access the [facility] [employer] Patient Portal on the [facility] isabela. Simply click on Patient Portal and then log into your account. If you would like to receive a full copy of your medical records, please contact the [facility] Medical Records Department by calling [phone], Saturday through Saturday between 8 a.m. and [...] Call your local pharmacy or go to http://bit.ly/9X8Bt3k to find one close to you.3.Make use of household items: Use cat litter or old coffee grounds to dispose medications if other options arenot available. Mix your drugs with these household products, seal them in an airtight container andthrow it into the garbage. Call [facility]: [phone] to be sure your drugs can be [...] aware that I should contact my doctor. Patient/Php Developer Signature: Date/Time: Relationship to Patient: Witness Name/Signature: Date/Time: [facility]ai [id number] Note Discharge Instructions Thank you for allowing [facility] to assist you with your healthcare needs. The following is importantdischarge information regarding your hospital visit. Your Diagnosis VT (ventricular tachycardia) What to do next Scheduled Follow-Up Appointments Appointment Type When Where Contact Information StatusCV Incision Check 07/16/2024 09:45 AM EST [facility] Confirmed CV Office Procedure ICD 09/29/2024 01:45 PM EDT [facility] Confirmed CV Remote Procedure HM 12/30/2024 06:45 PM EDT [facility] Confirmed Follow Up Appointments Follow Up with ELBA WOOD MD When:Within 5 to 7 days Where:[address] [facility] [address] [place] [address] [phone] Follow Up with SEDRICK ALEXANDER MD When:Within 5 to 7 days Where:[address] [place] [address] [phone] Follow Up with Discharge to [place] [facility] Level of Care When:Within 1-2 days Follow Up with JESSI OLGUIN MD When:Within 1-2 days Where:[facility] [address] [place] [address]- Additional Information: Please call the office to schedule a hospital follow up appointment. Follow Up with READMISSION RISK SCORE Additional Information: 11 Follow Up with INCISION CHECK When:07/16/2024 09:45 AM EST Where:[address] [address] [phone] Follow Up with DEVICE CLINIC When:09/29/2024 01:45 PM EDT Where:[address] [place] [phone] [phone] The Following Activity and Diet Have Been [...] Once a day Refills: 3 Pickup at [facility] New metoprolol (Toprol-XL 25 mg oral tablet, extended release) 1 tab(s) by mouth Once a day with a meal Refills: 3 Pickup at [facility] New ramipril (ramipril 2.5 mg oral capsule) 1 cap by mouth Once a day Refills: 3 Pickup at [facility] Changed rivaroxaban (Xarelto 20 mg oral tablet) 1 tab(s) by mouth With supper Pickup at [facility] Unchanged cholecalciferol (Vitamin D3) 100 [...] TABLET BY MOUTH EVERY DAY Pharmacy Information [facility]: [address] [place] [id number] [phone] Please take this list to your next [...] to receive it can visit one of [facility] vaccine clinics. There are many vaccine clinic locations within the [facility]. For locations and available times, please visit https://gettheshot.coronavirus.[place].gov/. It is important to note that some COVID mobile vaccine clinics are held outdoors and may be canceled in rainy or stormy conditions. To learn more about pediatric vaccinations (ages 5-11), we invite you to visit the [facility] webpage. https://www.[facility].org/pages/2350-Ltuut-Jktuencldnp-Bdgrrdptea-Zpxxv-Hkc stions.htmlTo learn more about the COVID-19 vaccine, we invite you to visit the CDC website for a list of frequently asked questions.https://www.cdc.gov/coronavirus/2019-ncov/vaccines/faq.html [facility] Patient Portal Access Instructions: Stay connected with your healthcare team and access your personal medical information anytime with the [facility] Patient Portal. Please follow the directions below to create your BrainBot account: 1.Access the email account you provided upon registration to the hospital/physician office.2.Look for an invitation email from [facility].3.Open the email and access the invitation link: AcceptInvitation to BrainBot.4.Fill in the required gaytan to create your account. To access your account, visit [employer]/White Che[employer]ht. Click the blue button labeled Access Patient [...] who you will allowto register on the [facility] Patient Portal for access to your information. You can also access the [facility] Patient Portal on the [facility]isewhere isabela. Simply click on Patient Portal and then log into your account. If you would like to receive a full copy of your medical records, please contact the [facility] Medical Records Department by calling [phone], Saturday through Saturday between 8 a.m. and [...] Call your local pharmacy or go to [email or web address].Rent My Vacation Home [email or web address] to find one close to you.3.Make use of household items: Use cat litter or old coffee grounds to dispose medications if other options arenot available. Mix your drugs with these household products, seal them in an airtight container andthrow it into the garbage. Call [facility]: [phone] to be sure your drugs can be [...] aware that I should contact my doctor. Patient/Php Developer Signature: Date/Time: Relationship to Patient: Witness Name/Signature: Date/Time: [facility] [id number] Physician Discharge summary Discharge Diagnosis Ventricular tachycardia PEA arrest Hypertension Atrial fibrillation Hospital Course Presented to [place] on 06/24/24 after unresponsive episode during breakfast. [...] Echo showed preserved EF 60%. Patient underwent [facility] s/p PCI/KESHIA to RCA on 06/25/24. Documentation on 06/27/24 morning states that code blue was called for sustained Vtach with a pulse.Initial episode self resolved, 2nd and 3rd episodes patient was defibrillated. Started on IV amiodarone and transferred to [facility] for further evaluation and management. EP was [...] ANDY A MD, Routine, ?hypoxia, transferred from [facility], they were treating for sepsis/pneumonia Consult to Spiritual Care Team (Consult to Pastoral Care) - Ordered -- 06/27/24 12:57:22 EST Consult to Tobacco Siding Coreboard Inspector - Ordered -- 06/27/24 12:49:00 EST, Once [...] MD When:Within 5 to 7 days Where:[address] [address] [phone] Follow Up with SEDRICK ALEXANDER MD When:Within 5 to 7 days Where:[address] [address] [phone] Follow Up with Discharge to [place] [facility] Level of Care When:Within 1-2 days Follow Up with JESSI OLGUIN MD When:Within 1-2 days [facility] [address] [place] [address]- Additional Information: Please call the office to schedule a hospital follow up appointment. Follow Up with READMISSION RISK SCORE Additional Information: 11 Follow Up with INCISION CHECK When:07/16/2024 09:45 AM EST Where:[address] [address] [phone] Follow Up with DEVICE CLINIC When:09/29/2024 01:45 PM EDT Where:[address] [address] [phone] Follow Up Appointments Transfer of Care OT [...] ANT JACKSON MD on 07/01/2024 01:09 PM [facility] [id number] Nurse Progress note ACNS documentation has been reviewed and all medications were verified prior to administration. Digitally Signed by Jannie Forbes Blending Tank Tender Helper on 07/01/2024 12:23 PM [facility] [id number] Cardiology Progress note Subjective No acute overnight [...] surgery), depression, anemia, COPD, hypothyroidism Presented to [place] on 06/24/24 after unresponsive episode during breakfast. [...] Echo showed preserved EF 60%. Patient underwent [facility] s/p PCI/KESHIA to RCA on 06/25/24. [...] ANT JACKSON MD on 07/01/2024 12:22 PM [facility] [id number] Note Date of Service 07/01/2024 10:39:18 Chief Complaint weakness Subjective 74-year-old male with medical history of IDDM 2, bilateral legal blindness, COPD, no home oxygen requirements, hypothyroidism, depression, chronic iron deficiency anemia, HFpEF, hyperlipidemia, atrial fibrillation on chronic Xarelto. Patient presents to the hospital for kgw-gq-nctvesnz cardiac arrest patient was in V. tach transferred to [facility] patient initiated on amiodarone and heparin drip. [...] on examination Abdomen: soft, non distended NT CHANNEL MAN: Alert, No focal deficits identified. aaox3. Blind [...] DHIRAJ KIM MD on 07/01/2024 10:44 AM [facility] CenterGyrtotrm01-12-0799 Note* Exam Date Time Procedure Performing Provider Status 07/01/24 9:36 AM XR Chest 2 Views ALEJANDRO CARRENO MD; [facility] (Verified) [id number] ORIGINAL EXAMINATION: TWO XRAY VIEWS OF THE [...] 07/01/2024 9:40:30 AM Ordering Provider: MORA SORIA [facility] [id number] Note. MICRO - Microbiology PROCEDURE: Legionella Urine [...] Locations *1: This test was performed at: [address], [facility] , [facility]01-28-2025 Note* Exam Date Time Procedure Performing Provider Status 06/30/24 6:18 PM XR Chest 1 View Contributor_system, ANTONIO JI; Auth (Verified) [id number] ORIGINAL EXAMINATION: ONE XRAY VIEW OF THE [...] Sign Date: 06/30/2024 8:46:51 PM Ordering Provider: [facility]01-28-2025 Cardiology Progress note Subjective No acute overnight [...] order Cushion Waffle 17x17 Chair Medium, Valveless ([id number])(Waffle Cushion Chair Medium ([id number])), 06/29/24 14:17:00 EST, Quantity 1, Weight: 110.5, 06/29/24 14:17:00 EST Hydrofiber Aquacel Silver Dressing ([id number]), 06/29/24 14:17:00 EST, Quantity 2, Weight: 110.5, [...] surgery), depression, anemia, COPD, hypothyroidism Presented to [place] on 06/24/24 after unresponsive episode during breakfast. [...] Echo showed preserved EF 60%. Patient underwent [facility] s/p PCI/KESHIA to RCA on 06/25/24. [...] ANT JACKSON MD on 06/30/2024 12:22 PM [facility] [id number] Anesthesiology Consult note Patient: ARMIN TURCIOS Age: [...] (2) Tobacco use Ventricular tachycardia seen on environmental monitoring specialist Histories Past Medical History: No active or resolved past medical history items have been selected or recorded. Family History: Cancer Mother Heart disease Brother Heart attack Brother Procedure history: Coronary angioplasty ([id number]) on 06/24/2024 at 74 Years. Hernia repair ([id number]). Social History: Social & Psychosocial Habits Alcohol [...] Oral36.4 DegC (JUN 30 10:23) Heart Rate Sruyhxaam38 bpm (JUN 30 11:) VMH751 mmHg (JUN 30 10:23) DBP86 mmHg (JUN [...] range of motion. Integumentary: Intact, Warm, Dry, Tut[place]iler. Neurologic: Alert, Oriented. Review / Management Results [...] 28)H 60.4(JUN 28) . Assessment and Plan [place] [employer] of Anesthesiologists (ASA) physical status classification: [...] GENARO LAL DO on 06/30/2024 03:45 PM [facility] [id number] Cardiology Progress note Subjective No acute overnight [...] order Cushion Waffle 17x17 Chair Medium, Valveless ([id number])(Waffle Cushion Chair Medium ([id number])), 06/29/24 14:17:00 EST, Quantity 1, Weight: 110.5, 06/29/24 14:17:00 EST Hydrofiber Aquacel Silver Dressing ([id number]), 06/29/24 14:17:00 EST, Quantity 2, Weight: 110.5, [...] surgery), depression, anemia, COPD, hypothyroidism Presented to [place] on 06/24/24 after unresponsive episode during breakfast. [...] Echo showed preserved EF 60%. Patient underwent [facility] s/p PCI/KESHIA to RCA on 06/25/24. [...] ANT JACKSON MD on 06/30/2024 12:22 PM [facility] [id number] Note* Exam Date Time Procedure Performing Provider Status 06/30/24 11:20 AM XR Chest 1 View KARRI GROSS MD; Aut [facility] (Verified) [id number] ORIGINAL EXAMINATION: ONE XRAY VIEW OF THE [...] 06/30/2024 11:26:40 AM Ordering Provider: DHIRAJ KIM [facility] [id number] Note Date of Service 06/30/2024 11:02:48 Chief Complaint Cough, SOB, dry mouth Subjective 74-year-old male with medical history of IDDM 2, bilateral legal blindness, COPD, no home oxygen requirements, hypothyroidism, depression, chronic iron deficiency anemia, HFpEF, hyperlipidemia, atrial fibrillation on chronic Xarelto. Patient presents to the hospital for jju-kj-imzvfhkw cardiac arrest patient was in V. tach transferred to [facility] patient initiated on amiodarone and heparin drip. [...] Extremities: No edema, No cyanosis or clubbing CHANNEL MAN: Alert, No focal deficits identified. aaox3 Weight [...] DHIRAJ KIM MD on 06/30/2024 11:11 AM [facility] [id number] Cardiology Consult note Date of Service June 29, 2024 History of Present Illness Patient is a 74-year-old male with medical history significant for persistent atrial fibrillation on Xarelto, chronic right bundle branch, hyperlipidemia, type 2 diabetes, COPD, former tobacco use, hypothyroidism, bilateral blindness, history of HFpEF who presents as a transfer from [facility] after an unresponsive event on June 24, [...] Echocardiogram was performed at outside hospital At [place] on 06/25/2024 which showed estimated EF of [...] started on IV amiodarone and transferred to [place] for ICD evaluation. Echocardiogram repeated during this [...] YOSI VERA MD on 06/29/2024 04:24 PM [facility] [id number] Cardiology Progress note Subjective No acute overnight [...] order Cushion Waffle 17x17 Chair Medium, Valveless ([id number])(Waffle Cushion Chair Medium ([id number])), 06/29/24 14:17:00 EST, Quantity 1, Weight: 110.5, 06/29/24 14:17:00 EST Hydrofiber Aquacel Silver Dressing ([id number]), 06/29/24 14:17:00 EST, Quantity 2, Weight: 110.5, [...] surgery), depression, anemia, COPD, hypothyroidism Presented to [place] on 06/24/24 after unresponsive episode during breakfast. [...] Echo showed preserved EF 60%. Patient underwent [facility] s/p PCI/KESHIA to RCA on 06/25/24. [...] ANT JACKSON MD on 06/29/2024 04:15 PM [facility] [id number] Cardiology Progress note Subjective No acute overnight [...] order Cushion Waffle 17x17 Chair Medium, Valveless ([id number])(Waffle Cushion Chair Medium ([id number])), 06/29/24 14:17:00 EST, Quantity 1, Weight: 110.5, 06/29/24 14:17:00 EST Hydrofiber Aquacel Silver Dressing ([id number]), 06/29/24 14:17:00 EST, Quantity 2, Weight: 110.5, [...] surgery), depression, anemia, COPD, hypothyroidism Presented to [place] on 06/24/24 after unresponsive episode during breakfast. [...] Echo showed preserved EF 60%. Patient underwent [facility] s/p PCI/KESHIA to RCA on 06/25/24. [...] ANT JACKSON MD on 06/29/2024 04:15 PM [facility] [id number] Note Reason for Consultation Admission From: Home [...] Ankle Left Outer - Skin Abnormality Color: Tutwiler, White, Yellow Ankle Left Outer - Skin [...] Sheridan Gross RN on 06/29/2024 11:30 AM [facility] [id number] Cardiology Consult note Date of Service June 29, 2024 History of Present Illness Patient is a 74-year-old male with medical history significant for persistent atrial fibrillation on Xarelto, chronic right bundle branch, hyperlipidemia, type 2 diabetes, COPD, former tobacco use, hypothyroidism, bilateral blindness, history of HFpEF who presents as a transfer from [facility] after an unresponsive event on June 24, [...] Echocardiogram was performed at outside hospital At [place] on 06/25/2024 which showed estimated EF of [...] started on IV amiodarone and transferred to [place] for ICD evaluation. Echocardiogram repeated during this [...] YOSI VERA MD on 06/29/2024 04:24 PM [facility] CenterYdtygjyp86-83-1088 Note Date of Service 06/29/2024 Chief Complaint 74-year-old male with a history of insulin-dependent type 2 diabetes, blindness right side due to mechanical injury, left side due to cataract surgery, COPD without chronic respiratory failure, former tobacco user, smoked about 45 years and stopped about 10 years ago, hypothyroidism, depression, chronic iron deficiency anemia, HFpEF, hyperlipidemia, A-fib on Xarelto who presented initially to [facility] after having ycc-uk-ptpqcssd cardiac arrest, was noted to have wide-complex tachycardia, apparently underwent a heart cath 06/25/2024 at [facility] with RCA stent, CAD, echocardiogram with preserved ejection fraction, apparently had a CODE BLUE called and was noted to be in V. tach, received multiple shocks, was then transferred to [place]. Per documentation, patient was initially a sepsis [...] fibrillation, currently rate controlled, known history Possible trg-tu-qqurajnn cardiac arrest CAD status post PCI to [...] the attending physician on service using the 'Assurely' dictation software. Please excuse any grammatical errors, repetitions/duplications if any are present in the entirety of this note. Thank you. Digitally Signed by PITER BRUSH MD on 06/29/2024 09:54 AM [facility] [id number] Note* Exam Date Time Procedure Performing Provider Status 06/29/24 9:34 AM VL Venous US/Doppler One Arm (for DVT). ZANA SALCEDO MD; Auth (Verified) [facility] [id number] Note* Exam Date Time Procedure Performing Provider Status 06/29/24 7:37 AM Echocardiogram, Adult - CV SVETLANA PARMAR MD; Auth (Verified) [facility] [id number] Note Date of Service 06/28/2024 Chief Complaint 74-year-old male with a history of insulin-dependent type 2 diabetes, blindness right side due to mechanical injury, left side due to cataract surgery, COPD without chronic respiratory failure, former tobacco user, smoked about 45 years and stopped about 10 years ago, hypothyroidism, depression, chronic iron deficiency anemia, HFpEF, hyperlipidemia, A-fib on Xarelto who presented initially to [facility] after having yok-rh-iedhnbbr cardiac arrest, was noted to have wide-complex tachycardia, apparently underwent a heart cath 06/25/2024 at [facility] with RCA stent, CAD, echocardiogram with preserved ejection fraction, apparently had a CODE BLUE called and was noted to be in V. tach, received multiple shocks, was then transferred to [place]. Per documentation, patient was initially a sepsis [...] fibrillation, currently rate controlled, known history Possible tft-qy-nfdmbmqq cardiac arrest CAD status post PCI to [...] of care discussed with patient and his czqpbq-bw-mtg who was present at bedside. This is a note transcribed by me, the attending physician on service using the '[email or web address]' dictation software. Please excuse any grammatical errors, repetitions/duplications if any are present in the entirety of this note. Thank you. 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 [...] Echo showed preserved EF 60%. Patient underwent [facility] s/p PCI/KESHIA to RCA on 06/25/24. [...] surgery), depression, anemia, COPD, hypothyroidism Presented to [place] on 06/24/24 after unresponsive episode during breakfast. [...] Echo showed preserved EF 60%. Patient underwent [facility] s/p PCI/KESHIA to RCA on 06/25/24. [...] CHANEL EDWARDS DO on 06/27/2024 03:47 PM [facility] [id number] Respiratory therapy Hospital Progress note Respiratory Therapy Evaluation Entered On: 06/27/2024 19:14 EST Performed On: 06/27/2024 19:14 EST by Maddy Cabral RRT Respiratory Therapy Evaluation RT Assessment [Frequency/Schedule] : Triage score 6-10, change frequency to TIDRT and Albuterol Q2hRT PRN per protocol Maddy Cabral SURG RN - 06/27/2024 23:19 EST RT Evaluation Steps : Chart review completed, Assessment completed: RR, HR, Auscultation, Cough, Patient Interview completed Respiratory Evaluation Triage Score : (6-10) Freq: TIDRT & Albuterol Q2hRT prn Maddy Cabral SURG RN - 06/27/2024 21:26 EST Surgical Status : No surgery Respiratory Therapy Evaluation Score : 6 Maddy Cabral RRT - 06/27/2024 21:25 EST Pulmonary [...] (RT) : Clear to auscultation Maddy Cabral SURG RN - 06/27/2024 19:14 EST Digitally Signed by Maddy Cabral RRT on 06/27/2024 11:22 PM [facility] [id number] Note Date of Service 06/27/2024 Reason for Consultation Medical management Referring Physician Chanel Edwards DO History of Present Illness Patient had 1 was this is a 74-year-old male with a known history of atrial fibrillation on Xarelto, HFpEF, insulin-dependent type 2 diabetes mellitus, hyperlipidemia, blindness, depression, iron deficiency anemia, COPD, vitamin D deficiency, hypothyroidism, chronic anemia, former tobacco user, whoinitially presented to [facility] on 06/24/2024 for an unresponsive episode. Patientwas [...] IV amiodarone. He was [facility] care. Currently, patient is on [...] V. tach Bradycardia with brief pauses Possible mgv-pt-zffsprre cardiac arrest CAD status post PCI to [...] the attending physician on service using the '[email or web address]' dictation software. Please excuse any grammatical errors, [...] PITER BRUSH MD on 06/27/2024 06:10 PM [facility] [id number] Evaluation + Plan noteExtracted from: Title:History and [...] surgery), depression, anemia, COPD, hypothyroidism Presented to [place] on 06/24/24 after unresponsive episode during breakfast. [...] Echo showed preserved EF 60%. Patient underwent [facility] s/p PCI/KESHIA to RCA on 06/25/24. 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 [...] Echo showed preserved EF 60%. Patient underwent [facility] s/p PCI/KESHIA to RCA on 06/25/24. [...] surgery), depression, anemia, COPD, hypothyroidism Presented to [place] on 06/24/24 after unresponsive episode during breakfast. [...] Echo showed preserved EF 60%. Patient underwent [facility] s/p PCI/KESHIA to RCA on 06/25/24. [...] CHANEL EDWARDS DO on 06/27/2024 03:47 PM [facility] [id number] Note* Exam Date Time Procedure Performing Provider Status 06/27/24 12:47 PM XR Chest 1 View HCAIM WORKMAN DO; [facility] (Verified) [id number] ORIGINAL EXAMINATION: ONE XRAY VIEW OF THE [...] 06/27/2024 1:04:58 PM Ordering Provider: CHANEL EDWARDS [facility] [id number] Note* Exam Date Time Procedure Performing Provider Status 06/27/24 12:25 PM Electrocardiogram - EKG - CV CAMILO ALEXANDER MD; Auth (Verified) ECG Final Report ATRIAL FIBRILLATION RIGHT BUNDLE BRANCH BLOCK Electronic Signature: SEDRICK ALEXANDER MD 06/28/2024 16:43:43 [facility] CenterWbeccgjd47-12-7169 [facility]01-25-2025 Note* Exam Date Time Procedure Performing Provider Status 06/27/24 12:12 PM Electrocardiogram - EKG - CV CAMILO ALEXANDER MD; Auth (Verified) ECG Final Report ATRIAL FIBRILLATION Ventricular premature complex RIGHT BUNDLE BRANCH BLOCK Electronic Signature: SEDRICK ALEXANDER MD 06/28/2024 16:43:33 [facility] [id number] Evaluation note* Diagnosis Onset Date Resolution Status [...] mellitus, type 2) chronic September 01 9:02pm [facility] Work Phone: 1(285) 529-793801-22-2025 Evaluation note* Diagnosis Onset Date Resolution Status [...] 01 9:02pm Pneumonia resolved September 01 9:02pm [facility] Work Phone: 1(469) 718-781204-18-2024 Progress note Author Alejandro Talbot [facility] September 19, 2023 10:40am Note Date/Time September 19, 2023 10: 25am [facility] [address] [place] [id number] Progress Note - Wound Care 09/19/23 1020 MR#: [id number] Acct: [id number] Name: ARMIN TURCIOS Rep #:[id number] : 1950 73 From: Alejandro bar DPM [...] have been following with Dr. Anderson in [place] as well as PCP Dr. Olguin. They [...] lower extremity ulceration. He is accompanied by nestgzpp-to-pvu today. Wjrnyfmd-dj-oay is aiding in daily dressing changes. He does not keep feet elevated as much as he should according to previous statements by and zoavhjxg-hm-ddw. Cwvfnohn-tx-req states she is seeing improvement in the [...] Recorded Date Recorded By Document 09/05/23 08:12 MO Desktop 09/05/23 08:23 MO Document 09/10/23 11:41 RB [id number] 09/10/23 11:44 RB Document 09/19/23 08:00 DL Desktop 09/19/23 08:09 DL 09/05/23 09/10/23 09/19/23 08:12 11:41 08:00 - Today's Visit Information Type of service Follow-up Visit Follow-up Visit Follow-up Visit (Physician/RIBBON INKER (Physician/RIBBON INKER (Physician/RIBBON INKER ) ) ) Arrival Mode Ambulatory Ambulatory,Cane [...] 09/05/23 08:23 MT Document 09/10/23 11:41 RB [id number] 09/10/23 11:44 RB Document 09/19/23 08:00 DL [...] Amt Medium (34-66%) Small (1-33%) -Granulation Quality [place]iler [place] -Slough/Fibrin Yes -Necrosis Amt Medium (34-66%) Large [...] Recorded Date Recorded By Document 09/05/23 08:46 [facility] Desktop 09/05/23 08:51 [facility] Document 09/19/23 08:42 [facility] Desktop 09/19/23 08:48 [facility] 09/05/23 09/19/23 08:46 08:42 Wound Center Nurse [...] 09/05/23 09:09 DL Document 09/10/23 11:41 RB [id number] 09/10/23 11:44 RB Document 09/19/23 09:02 DL [...] diabetes mellitus without complications QUALIFIERS: Diabetes mellitus termite renewal inspector insulin use: with termite renewal inspector use Diabetes mellitus complication status: with other specified complication Qualified Code(s): E11.69 - Type 2 diabetes mellitus with other specified complication; Z79.4 - residential (current) use of insulin PLAN: Plan Patient [...] No signs of infection. Pain: May take glue-ebd-qrzaasx Tylenol extra strength for discomfort. Host factors: DM type II, chronic venous stasis, CHF, COPD, blindness I answered all the patient's questions. To return to the wound healing center in 2 weeks or call sooner if the patient has any questions or concerns. 09/19/23 1025 <Electronically signed by Alejandro Talbot DPM> Cosigner Signature (if applicable): CC: ~ Signed [facility] Work Phone: 1(451) 457-659004-04-2024 Progress note Author Alejandro Talbot [facility] September 05, 2023 9:11am Note Date/Time September 05, 2023 8:34 am [facility] [address] [place] [address] Progress Note - Wound Care 09/05/23 0829 MR#: [id number] Acct: [id number] Name: ARMIN TURCIOS Rep #:[id number] : 1950 73 From: Alejandro bar DPM PCP: Dr. Jessi lOguin MD Status:REG RCR Location: History of Present [...] have been following with Dr. Anderson in [place] as well as PCP Dr. Olguin. They [...] lower extremity ulceration. He is accompanied by hvgrtyds-qx-mfg today due to and daughter both fracturing [...] Recorded Date Recorded By Document 09/05/23 08:12 MO Desktop 09/05/23 08:23 MO 09/05/23 08:12 - Today's Visit Information Type of service Follow-up Visit (Physician/RIBBON INKER ) Arrival Mode Ambulatory Accompanied by daughter [...] Recorded Date Recorded By Document 09/05/23 08:12 MO Desktop 09/05/23 08:23 MO 09/05/23 08:12 Wound Center Nurse 1 #9 [...] status: with other specified complication Diabetes mellitus care home insulin use: with termite renewal inspector use Qualified Code(s): E11.69 - Type 2 diabetes mellitus with other specified complication; Z79.4 - residential (current) use of insulin PLAN: Plan Patient [...] No signs of infection. Pain: May take gmtj-hfm-iyhspws Tylenol extra strength for discomfort. Host factors: DM type II, chronic venous stasis, CHF, COPD, blindness I answered all the patient's questions. To return to the wound healing center in 2 weeks or call sooner if the patient has any questions or concerns. 09/05/23 0911 <Electronically signed by Alejandro Talbot DPM> Cosigner Signature (if applicable): CC: ~ Signed [facility] Work Phone: 1(998) 697-436903-21-2024 Progress note Author Alejandro Talbot [facility] August 22, 2023 12:36pm Note Date/Time August 22, 2023 8:2 4am [facility] [address] [place] [address] Progress Note - Wound Care 08/22/23 0823 MR#: [id number] Acct: [id number] Name: ARMIN TURCIOS Rep #:[id number] : 1950 73 From: Alejandro bar DPM [...] have been following with Dr. Anderson in [place] as well as PCP Dr. Olguin. They [...] Type of service Follow-up Visit Follow-up Visit (Physician/RIBBON INKER (Physician/RIBBON INKER ) ) Arrival Mode Ambulatory,Cane Ambulatory Transfer [...] Document 08/08/23 08:38 [facility] Desktop 08/08/23 08:46 [facility] 08/08/23 08:38 Wound Center Nurse 2 #9 [...] Disc -Expiration Date 04/03/28 -Product Lot Number [id number] -Percent Used 100 -Lot number of Saline Used [id number] -Bleeding Controlled with Pressure -Treatment Response Procedure [...] DL Edit Result 08/08/23 08:59 DL (1) [id number] 08/12/23 15:12 BMF Document 08/15/23 08:12 MT [...] status: with other specified complication Diabetes mellitus termite renewal inspector insulin use: with care home use Qualified Code(s): E11.69 - Type 2 diabetes mellitus with other specified complication; Z79.4 - termite control technician (current) use of insulin (7) COPD (chronic [...] No signs of infection. Pain: May take ryqi-lbo-pfmfwvd Tylenol extra strength for discomfort. Host factors: DM type II, chronic venous stasis, CHF, COPD, blindness I answered all the patient's questions. To return to the wound healing center in 2 weeks or call sooner if the patient has any questions or concerns. 08/22/23 1236 <Electronically signed by Alejandro Talbot DPM> Cosigner Signature (if applicable): CC: ~ Signed [facility] Work Phone: 1(198) 333-194003-07-2024 Progress note Author Alejandro Talbot [facility] August 08, 2023 8:40pm Note Date/Time August 08, 2023 8:33 am [facility] [address] [place] [address] Progress Note - Wound Care 08/08/23 0831 MR#: [id number] Acct: [id number] Name: ARMIN TURCIOS Rep #:[id number] : 1950 73 From: Alejandro bar DPM [...] have been following with Dr. Anderson in [place] as well as PCP Dr. Olguin. They [...] Visit Information Type of service Follow-up Visit (Physician/RIBBON INKER ) Arrival Mode Ambulatory,Cane Transfer Assist (Other) [...] diabetes mellitus without complications QUALIFIERS: Diabetes mellitus termite renewal inspector insulin use: with care home use Diabetes mellitus complication status: with other specified complication Qualified Code(s): E11.69 - Type 2 diabetes mellitus with other specified complication; Z79.4 - residential (current) use of insulin (7) COPD (chronic [...] No signs of infection. Pain: May take haik-vfe-kpqdfpr Tylenol extra strength for discomfort. Host factors: DM type II, chronic venous stasis, CHF, COPD, blindness I answered all the patient's questions. To return to the wound healing center in 2 weeks or call sooner if the patient has any questions or concerns. 08/08/232039 <Electronically signed by Alejandro Tablot DPM> Cosigner Signature (if applicable): CC: ~ Signed [facility] Work Phone: 1(303) 927-554502-29-2024 Progress note Author Alejandro Talbot [facility] August 01, 2023 11:43am Note Date/Time August 01, 2023 8:31am [facility] [address] [place] [address] Progress Note - Wound Care 08/01/2331 MR#: [id number] Acct: [id number] Name: ARMIN TURCIOS Rep #:[id number] : 1950 73 From: Alejandro bar DPM [...] have been following with Dr. Anderson in [place] as well as PCP Dr. Olguin. They [...] service Nurse-only Follow-up Visit Follow-up Visit Visit (Physician/RIBBON INKER (Physician/RIBBON INKER ) ) Arrival Mode Ambulatory,Cane Ambulatory,Cane Ambulatory,Cane [...] Visit Information Type of service Follow-up Visit (Physician/RIBBON INKER ) Arrival Mode Ambulatory Transfer Assistance None [...] Amt Large (67-100%) Large (67-100%) -Granulation Quality [place] Pale -Necrosis Amt Small (1-33%) None Present [...] 07/11/23 08:53 PL Document 07/11/23 11:55 PL [id number] 07/11/23 11:56 PL Document 07/18/23 08:37 PL Tablet 07/18/23 08:39 PL Document 07/25/23 12:04 PL [id number] 07/25/23 12:06 PL 07/11/23 07/11/23 07/18/23 08:51 [...] Disc -Expiration Date 03/03/28 -Product Lot Number [id number] -Percent Used 100 -Bleeding Controlled with [...] Recorded Date Recorded By Document 07/04/23 08:10 [facility] 07/04/23 08:11 BMF Document 07/18/23 08:32 KW [...] status: with other specified complication Diabetes mellitus care home insulin use: with termite renewal inspector use Qualified Code(s): E11.69 - Type 2 diabetes mellitus with other specified complication; Z79.4 - residential (current) use of insulin (7) COPD (chronic [...] No signs of infection. Pain: May take mosp-ftd-mrgmrhv Tylenol extra strength for discomfort. Host factors: DM type II, chronic venous stasis, CHF, COPD, blindness I answered all the patient's questions. To return to the wound healing center in 1 week or call sooner if the patient has any questions or concerns. 08/01/23 1143 <Electronically signed by Alejandro Talbot DPM> Cosigner Signature (if applicable): CC: ~ Signed [facility] Work Phone: 1(609) 200-153502-22-2024 Progress note Author Alejandro Talbot [facility] July 25, 2023 8:48am Note Date/Time July 25, 2023 8:23am [facility] [address] [place] [address] Progress Note - Wound Care 07/25/2320 MR#: [id number] Acct: [id number] Name: ARMIN TURCIOS Rep #:[id number] : 1950 73 From: Alejandro bar DPM [...] have been following with Dr. Anderson in [place] as well as PCP Dr. Olguin. They [...] service Nurse-only Follow-up Visit Follow-up Visit Visit (Physician/RIBBON INKER (Physician/RIBBON INKER ) ) Arrival Mode Ambulatory,Cane Ambulatory,Cane Ambulatory,Cane [...] Amt Large (67-100%) Large (67-100%) -Granulation Quality [place] Pale -Necrosis Amt Small (1-33%) None Present [...] 07/11/23 08:53 PL Document 07/11/23 11:55 PL [id number] 07/11/23 11:56 PL Document 07/18/23 08:37 PL [...] Recorded Date Recorded By Document 07/04/23 08:10 [facility] Desktop 07/04/23 08:11 BM Document 07/18/23 08:32 [...] status: with other specified complication Diabetes mellitus termite renewal inspector insulin use: with care home use Qualified Code(s): E11.69 - Type 2 diabetes mellitus with other specified complication; Z79.4 - termite control technician (current) use of insulin (7) COPD (chronic [...] No signs of infection. Pain: May take xhox-tuf-ktusscy Tylenol extra strength for discomfort. Host factors: DM type II, chronic venous stasis, CHF, COPD, blindness I answered all the patient's questions. To return to the wound healing center in 1 week or call sooner if the patient has any questions or concerns. 07/25/23 0848 <Electronically signed by Alejandro Talbot DPM> Cosigner Signature (if applicable): CC: ~ Signed [facility] Work Phone: 1(227) 550-480402-15-2024 Progress note Author Alejandro Talbot [facility] July 18, 2023 8:41am Note Date/Time July 18, 2023 8:21am [facility] [address] [place] [address] Progress Note - Wound Care 07/18/23 0817 MR#: [id number] Acct: [id number] Name: ARMIN TURCIOS Rep #:[id number] : 1950 73 From: Alejandro bar DPM [...] have been following with Dr. Anderson in [place] as well as PCP Dr. Olguin. They [...] Recorded Date Recorded By Document 07/04/23 08:06 [facility] Desktop 07/04/23 08:10 [facility] Document 07/18/23 08:00 KW Desktop 07/18/23 08:06 KW 07/04/23 07/18/23 08:06 08:00 WC - Today's Visit Information Type of service Nurse-only Follow-up Visit Visit (Physician/RIBBON INKER ) Arrival Mode Ambulatory,Cane Ambulatory,Cane Transfer Assistance [...] Recorded Date Recorded By Document 07/04/23 08:06 [facility] Desktop 07/04/23 08:10 BM Document 07/18/23 08:00 KW Desktop 07/18/23 08:06 KW 07/04/23 07/18/23 08:06 08:00 Wound Center Nurse 1 #9 LT ANKLE -Current Size (cm) - Length 1.3 -Current Size (cm) - Width 0.9 -Current Size (cm) - Depth 0.3 -Total Square Cm 1.17 -Date of Last Picture (Recall this 07/18/23 field) -Photo Taken Yes -Granulation Amt Large (67-100%) -Granulation Quality [place] -Necrosis Amt Small (1-33%) -Necrotic Tissue Type [...] 07/11/23 08:53 PL Document 07/11/23 11:55 PL [id number] 07/11/23 11:56 PL 07/11/23 07/11/23 08:51 11:55 [...] Recorded Date Recorded By Document 07/04/23 08:10 [facility] Desktop 07/04/23 08:11 [facility] 07/04/23 08:10 Wound Care Center Nurse 3 [...] diabetes mellitus without complications QUALIFIERS: Diabetes mellitus termite renewal inspector insulin use: with termite renewal inspector use Diabetes mellitus complication status: with other specified complication Qualified Code(s): E11.69 - Type 2 diabetes mellitus with other specified complication; Z79.4 - termite control technician (current) use of insulin (7) COPD (chronic [...] No signs of infection. Pain: May take uaqq-bdd-zcsvksy Tylenol extra strength for discomfort. Host factors: DM type II, chronic venous stasis, CHF, COPD, blindness I answered all the patient's questions. To return to the wound healing center in 1 week or call sooner if the patient has any questions or concerns. 07/18/23 0841 <Electronically signed by Alejandro Talbot DPM> Cosigner Signature (if applicable): CC: ~ Signed [facility] Work Phone: 1(777) 220-178502-08-2024 Progress note Author Alejandro Talbot [facility] July 11, 2023 8:59am Note Date/Time July 11, 2023 8 :39am [facility] [address] [place] [address] Progress Note - Wound Care 07/11/2335 MR#: [id number] Acct: [id number] Name: ARMIN TURCIOS Rep #:[id number] : 1950 73 From: Alejandro bar DPM [...] have been following with Dr. Anderson in [place] as well as PCP Dr. Olguin. They [...] Recorded Date Recorded By Document 07/04/23 08:06 [facility] Desktop 07/04/23 08:10 [facility] 07/04/23 08:06 WC - Today's Visit Information [...] Recorded Date Recorded By Document 07/04/23 08:06 [facility] [employer] 07/04/23 08:10 [facility] 07/04/23 08:06 Wound Center Nurse 1 #9 LT ANKLE -Wound Comment(s) epifix intact Lower Limb Edema Present Yes Left Calf (cm) 38.2 Left Ankle (cm) 22.3 - Nurse 3 - General Ulcer D/C NN Start: 07/04/23 08:06 Freq: Status: Active Protocol: Activity Type Activity Date Activity User E-sign Co-sign Detail Recorded Client Recorded Date Recorded By Document 07/04/23 08:10 [facility] Desktop 07/04/23 08:11 [facility] 07/04/23 08:10 Wound Care Center Nurse 3 [...] diabetes mellitus without complications QUALIFIERS: Diabetes mellitus care home insulin use: with care home use Diabetes mellitus complication status: with other specified complication Qualified Code(s): E11.69 - Type 2 diabetes mellitus with other specified complication; Z79.4 - residential (current) use of insulin (7) COPD (chronic [...] No signs of infection. Pain: May take xoif-czp-mupjuut Tylenol extra strength for discomfort. Host factors: DM type II, chronic venous stasis, CHF, COPD, blindness I answered all the patient's questions. To return to the wound healing center in 1 week or call sooner if the patient has any questions or concerns. 07/11/23 0859 <Electronically signed by Alejandro Talbot DPM> Cosigner Signature (if applicable): CC: ~ Signed [facility] Work Phone: 1(963) 328-649201-25-2024 Progress note Author Alejandro Talbot [facility] June 27, 2023 8:33am Note Date/Time June 27, 2023 8 :16am [facility] [address] [place] [address] Progress Note - Wound Care 06/27/23 0816 MR#: [id number] Acct: [id number] Name: ARMIN TURCIOS Rep #:[id number] : 1950 73 From: Alejandro bar DPM [...] have been following with Dr. Anderson in [place] as well as PCP Dr. Olguin. They [...] service Follow-up Visit Follow-up Visit Follow-up Visit (Physician/RIBBON INKER (Physician/RIBBON INKER (Physician/RIBBON INKER ) ) ) Arrival Mode Ambulatory,Cane Ambulatory [...] Visit Information Type of service Follow-up Visit (Physician/RIBBON INKER ) Arrival Mode Ambulatory,Cane Accompanied by Patient [...] (34-66%) Medium (34-66%) -Granulation Quality Red Red Tutwiler -Necrosis Amt Medium (34-66%) Small (1-33%) Small [...] Thickened -Granulation Amt Small (1-33%) -Granulation Quality Tutwiler -Necrosis Amt Medium (34-66%) -Necrotic Tissue Type [...] => 02/02/28 - Product Lot Number => [id number] - Percent Used => 100 06/06/23 06/13/23 [...] Date 02/02/28 02/02/28 02/02/28 -Product Lot Number [id number] 002 025 -Percent Used 100 100 [...] Date Recorded By Document 06/06/23 08:38 [facility] [employer] 06/06/23 08:39 KW Document 06/13/23 08:36 [employer] 06/13/23 08:37 KW Document 06/20/23 08:34 KW [employer] 06/20/23 08:35 KW 06/06/23 06/13/23 06/20/23 08:38 [...] status: with other specified complication Diabetes mellitus termite renewal inspector insulin use: with termite renewal inspector use Qualified Code(s): E11.69 - Type 2 diabetes mellitus with other specified complication; Z79.4 - residential (current) use of insulin (8) Hyperlipidemia: CODE(S): [...] No signs of infection. Pain: May take jios-beo-mzpsixs Tylenol extra strength for discomfort. Host factors: [...] Cosigner Signature (if applicable): CC: ~ Signed [facility] Work Phone: 1(107) 826-349401-18-2024 Progress note Author Alejandro Talbot [facility] June 20, 2023 8:39am Note Date/Time June 20, 2023 8 :39am [facility] [address] [place] [address] Progress Note - Wound Care 06/20/2332 MR#: [id number] Acct: [id number] Name: ARMIN TURCIOS Rep #:[id number] : 1950 73 From: Aleajndro bar DPM PCP: Dr. Jessi Olguin MD [...] have been following with Dr. Anderson in [place] as well as PCP Dr. Olguin. They [...] today as he is stillreeling from the [place] playoff loss. He denies constitutional symptoms today. [...] service Follow-up Visit Follow-up Visit Follow-up Visit (Physician/RIBBON INKER (Physician/RIBBON INKER (Physician/RIBBON INKER ) ) ) Arrival Mode Ambulatory,Cane Ambulatory [...] (34-66%) Medium (34-66%) -Granulation Quality Red Red Tut[place]iler -Necrosis Amt Medium (34-66%) Small (1-33%) Small [...] -Expiration Date 02/02/28 02/02/28 -Product Lot Number [id number] 002 -Percent Used 100 100 -Bleeding [...] diabetes mellitus without complications QUALIFIERS: Diabetes mellitus termite renewal inspector insulin use: with termite renewal inspector use Diabetes mellitus complication status: with other specified complication Qualified Code(s): E11.69 - Type 2 diabetes mellitus with other specified complication; Z79.4 - residential (current) use of insulin (8) Hyperlipidemia: CODE(S): [...] No signs of infection. Pain: May take tstb-efw-erjzagi Tylenol extra strength for discomfort. Host factors: DM type II, chronic venous stasis, CHF, COPD, blindness I answered all the patient's questions. To return to the wound healing center in 1 week or call sooner if the patient has any questions or concerns. 06/20/23 0839 <Electronically signed by Alejandro Talbot DPM> Cosigner Signature (if applicable): CC: ~ Signed [facility] Work Phone: 1(148) 815-739601-11-2024 Progress note Author Alejandro Talbot [facility] June 13, 2023 8:51am Note Date/Time June 13, 2023 8 :23am [facility] [address] [place] [address] Progress Note - Wound Care 06/13/23 0823 MR#: [id number] Acct: [id number] Name: ARMIN TURCIOS Rep #:[id number] : 1950 73 From: Alejandro bar DPM [...] have been following with Dr. Anderson in [place] as well as PCP Dr. Olguin. They [...] Type of service Follow-up Visit Follow-up Visit (Physician/RIBBON INKER (Physician/RIBBON INKER ) ) Arrival Mode Ambulatory,Cane Ambulatory Accompanied [...] Disc -Expiration Date 02/02/28 -Product Lot Number [id number] -Percent Used 100 -Bleeding Controlled with [...] status: with other specified complication Diabetes mellitus termite renewal inspector insulin use: with care home use Qualified Code(s): E11.69 - Type 2 diabetes mellitus with other specified complication; Z79.4 - residential (current) use of insulin (8) Hyperlipidemia: CODE(S): [...] No signs of infection. Pain: May take nwwt-vhf-xrydyfz Tylenol extra strength for discomfort. Host factors: DM type II, chronic venous stasis, CHF, COPD, blindness I answered all the patient's questions. To return to the wound healing center in 1 week or call sooner if the patient has any questions or concerns. 06/13/23 0851 <Electronically signed by Alejandro Talbot DPM> Cosigner Signature (if applicable): CC: ~ Signed [facility] Work Phone: 1(582) 203-228901-04-2024 Progress note Author Alejandro Tablot [facility] June 06, 2023 8:47am Note Date/Time June 06, 2023 8: 28am [facility] [address] [place] [address] Progress Note - Wound Care 06/06/2321 MR#: [id number] Acct: [id number] Name: ARMIN TURCIOS Rep #:[id number] : 1950 73 From: Alejandro bar DPM [...] have been following with Dr. Anderson in [place] as well as PCP Dr. Olguin. They [...] Date Recorded By Document 06/06/23 08:05 KW [employer] 06/06/23 08:08 KW 06/06/23 08:05 WC - Today's Visit Information Type of service Follow-up Visit (Physician/RIBBON INKER ) Arrival Mode Ambulatory,Cane Accompanied by Patient [...] Date Recorded By Document 06/06/23 08:05 KW [employer] 06/06/23 08:08 KW 06/06/23 08:05 Wound Center [...] status: with other specified complication Diabetes mellitus termite renewal inspector insulin use: with care home use Qualified Code(s): E11.69 - Type 2 diabetes mellitus with other specified complication; Z79.4 - termite control technician (current) use of insulin (8) Hyperlipidemia: CODE(S): [...] No signs of infection. Pain: May take feud-pxq-nhiaaap Tylenol extra strength for discomfort. Host factors: DM type II, chronic venous stasis, CHF, COPD, blindness I answered all the patient's questions. To return to the wound healing center in 1 week or call sooner if the patient has any questions or concerns. 06/06/23 3578 <Electronically signed by Alejandro Talbot DPM> Cosigner Signature (if applicable): CC: ~ Signed [facility] Work Phone: 1(377) 375-217212-28-2023 Progress note Author Alejandro Talbot [facility] May 30, 2023 9:24am Note Date/Time May 30, 2023 8:24am [facility] [address] [place] [address] Progress Note - Wound Care 05/30/23822 MR#: [id number] Acct: [id number] Name: ARMIN TURCIOS Rep #:[id number] : 1950 73 From: Alejandro abr DPM PCP: Dr. Jessi Olguin MD Status:REG [...] have been following with Dr. Anderson in [place] as well as PCP Dr. Olguin. They [...] service Follow-up Visit Follow-up Visit Follow-up Visit (Physician/RIBBON INKER (Physician/RIBBON INKER (Physician/RIBBON INKER ) ) ) Arrival Mode Ambulatory,Cane Ambulatory,Cane [...] (1-33%) Medium (34-66%) -Granulation Quality Red Red [place]iler -Necrosis Amt Small (1-33%) Large (67-100%) Small [...] Date Recorded By Document 05/09/23 10:19 PL [id number] 05/09/23 10:21 PL Document 05/16/23 16:29 PL [id number] 05/16/23 16:31 PL 05/09/23 05/16/23 10:19 16:29 [...] -Expiration Date 01/02/28 01/02/28 -Product Lot Number [id number] -Percent Used 100 100 -Bleeding [...] status: with other specified complication Diabetes mellitus termite renewal inspector insulin use: with termite renewal inspector use Qualified Code(s): E11.69 - Type 2 diabetes mellitus with other specified complication; Z79.4 - termite control technician (current) use of insulin (8) Hyperlipidemia: CODE(S): [...] No signs of infection. Pain: May take zdkd-uqw-mbgaisb Tylenol extra strength for discomfort. Host factors: DM type II, chronic venous stasis, CHF, COPD, blindness I answered all the patient's questions. To return to the wound healing center in 1 week or call sooner if the patient has any questions or concerns. 05/30/23923 <Electronically signed by Alejandro Talbot DPM> Cosigner Signature (if applicable): CC: ~ Signed [facility] Work Phone: 1(239) 453-491512-14-2023 Progress note Author Alejandro Talbot [facility] May 16, 2023 9:20am Note Date/Time May 16, 2023 8:27am [facility] [address] [place] [address] Progress Note - Wound Care 05/16/23826 MR#: [id number] Acct: [id number] Name: ARMIN TURCIOS Rep #:[id number] : 1950 73 From: Alejandro bar DPM [...] have been following with Dr. Anderson in [place] as well as PCP Dr. Olguin. They [...] Date Recorded By Document 05/09/23 08:09 DL [employer] 05/09/23 08:19 DL 05/09/23 08:09 WC - Today's Visit Information Type of service Follow-up Visit (Physician/RIBBON INKER ) Arrival Mode Ambulatory,Cane Transfer Assistance None [...] Date Recorded By Document 05/09/23 08:09 DL [employer] 05/09/23 08:19 DL 05/09/23 08:09 Wound Center [...] Date Recorded By Document 05/09/23 10:19 BARRY [id number] 05/09/23 10:21 PL 05/09/23 10:19 Wound Center [...] Disc -Expiration Date 01/02/28 -Product Lot Number [id number] -Percent Used 100 -Bleeding Controlled with [...] status: with other specified complication Diabetes mellitus termite renewal inspector insulin use: with termite renewal inspector use Qualified Code(s): E11.69 - Type 2 diabetes mellitus with other specified complication; Z79.4 - residential (current) use of insulin (8) Hyperlipidemia: CODE(S): [...] No signs of infection. Pain: May take sxed-yqp-ungyhoy Tylenol extra strength for discomfort. Host factors: DM type II, chronic venous stasis, CHF, COPD, blindness I answered all the patient's questions. To return to the wound healing center in 2 weeks or call sooner if the patient has any questions or concerns. 05/16/23919 <Electronically signed by Alejandro aTlbot DPM> Cosigner Signature (if applicable): CC: ~ Signed [facility] Work Phone: 1(875) 682-484812-07-2023 Progress note Author Alejandro Talbot [facility] May 09, 2023 9:33am Note Date/Time May 09, 2023 9 :34am [facility] [address] [place] [address] Progress Note - Wound Care 05/09/23926 MR#: [id number] Acct: [id number] Name: ARMIN TURCIOS Rep #:[id number] : 1950 73 From: Alejandro bar DPM PCP: [facility] Jessi [facility] MD [facility] Location: History of Present Illness Date of [...] have been following with Dr. Anderson in [place] as well as PCP Dr. Olguin. They [...] Date Recorded By Document 05/09/23 08:09 DL [employer] 05/09/23 08:19 DL 05/09/23 08:09 WC - Today's Visit Information Type of service Follow-up Visit (Physician/RIBBON INKER ) Arrival Mode Ambulatory,Cane Transfer Assistance None [...] Date Recorded By Document 05/09/23 08:09 DL [employer] 05/09/23 08:19 DL 05/09/23 08:09 Wound Center [...] diabetes mellitus without complications QUALIFIERS: Diabetes mellitus termite renewal inspector insulin use: with care home use Diabetes mellitus complication status: with other specified complication Qualified Code(s): E11.69 - Type 2 diabetes mellitus with other specified complication; Z79.4 - residential (current) use of insulin (8) Hyperlipidemia: CODE(S): [...] No signs of infection. Pain: May take rzjt-xgu-apsaeon Tylenol extra strength for discomfort. Host factors: DM type II, chronic venous stasis, CHF, COPD, blindness I answered all the patient's questions. To return to the wound healing center in 1 week or call sooner if the patient has any questions or concerns. 05/09/23 3267 <Electronically signed by Alejandro Talbot DPM> Cosigner Signature (if applicable): CC: ~ Signed [facility] Work Phone: 1(729) 614-948111-30-2023 Progress note Author Alejandro Antione [facility] May 02, 2023 9:18am Note Date/Time May 02, 2023 9:14am [facility] [address] [place] [address] Progress Note - Wound Care 05/02/23 0911 MR#: [id number] Acct: [id number] Name: ARMIN TURCIOS Rep #:[id number] : 1950 73 From: Alejandro bar DPM [...] have been following with Dr. Anderson in [place] as well as PCP Dr. Ogluin. They stateoccasional use of mupirocin topical ointment [...] service Follow-up Visit Follow-up Visit Follow-up Visit (Physician/RIBBON INKER (Physician/RIBBON INKER (Physician/RIBBON INKER ) ) ) Arrival Mode Ambulatory Ambulatory,Cane [...] (1-33%) Small (1-33%) Small (1-33%) -Granulation Quality Tutwiler Tutwiler Tutwiler -Slough/Fibrin Yes -Necrosis Amt Large (67-100%) Medium [...] Present (0 Small (1-33%) %) -Granulation Quality [place]iler -Slough/Fibrin Yes -Necrosis Amt Medium (34-66%) Medium [...] Recorded Date Recorded By Document 04/11/23 16:38 [id number] 04/11/23 16:41 PL Document 04/18/23 16:06 [id number] 04/18/23 16:09 PL 04/11/23 04/18/23 16:38 16:06 [...] -Expiration Date 12/02/27 12/02/27 -Product Lot Number [id number] -Percent Used 100 100 -Bleeding [...] diabetes mellitus without complications QUALIFIERS: Diabetes mellitus care home insulin use: with care home use Diabetes mellitus complication status: with other specified complication Qualified Code(s): E11.69 - Type 2 diabetes mellitus with other specified complication; Z79.4 - residential (current) use of insulin (6) COPD (chronic [...] No signs of infection. Pain: May take xqne-mea-vufvsnd Tylenol extra strength for discomfort. Host factors: DM type II, chronic venous stasis, CHF, COPD, blindness I answered all the patient's questions. To return to the wound healing center in 1 week or call sooner if the patient has any questions or concerns. 05/02/23917 <Electronically signed by Alejandro Talbot DPM> Cosigner Signature (if applicable): CC: ~ Signed [facility] Work Phone: 1(557) 744-716111-16-2023 Progress note Author Alejandro Talbot [facility] April 18, 2023 9:36am Note Date/Time April 18, 2023 9:36am [facility] [address] [place] [address] Progress Note - Wound Care 04/18/23929 MR#: [id number] Acct: [id number] Name: ARMIN TURCIOS Rep #:[id number] : 1950 73 From: Alejandro bar DPM [...] have been following with Dr. Anderson in [place] as well as PCP Dr. Olguin. They [...] Type of service Follow-up Visit Follow-up Visit (Physician/RIBBON INKER (Physician/RIBBON INKER ) ) Arrival Mode Ambulatory Ambulatory,Cane Transfer [...] Amt Small (1-33%) Small (1-33%) -Granulation Quality Tutwiler Tutwiler -Slough/Fibrin Yes -Necrosis Amt Large (67-100%) Medium [...] Present (0 Small (1-33%) %) -Granulation Quality [place]iler -Slough/Fibrin Yes -Necrosis Amt Medium (34-66%) Medium [...] Date Recorded By Document 04/11/23 16:38 PL [id number] 04/11/23 16:41 PL 04/11/23 16:38 Wound Center [...] Disc -Expiration Date 12/02/27 -Product Lot Number [id number] -Percent Used 100 -Bleeding Controlled with [...] diabetes mellitus without complications QUALIFIERS: Diabetes mellitus care home insulin use: with care home use Diabetes mellitus complication status: with other specified complication Qualified Code(s): E11.69 - Type 2 diabetes mellitus with other specified complication; Z79.4 - residential (current) use of insulin (6) COPD (chronic [...] No signs of infection. Pain: May take xkfq-cox-jtjoark Tylenol extra strength for discomfort. Host factors: DM type II, chronic venous stasis, CHF, COPD, blindness I answered all the patient's questions. To return to the wound healing center in 2 weeks or call sooner if the patient has any questions or concerns. 04/18/23935 <Electronically signed by Alejandro Talbot DPM> Cosigner Signature (if applicable): CC: ~ Signed [facility] Work Phone: 1(855) 334-380111-09-2023 Progress note Author Alejandro Talbot [facility] April 11, 2023 1:14pm Note Date/Time April 11, 2023 9 :25am [facility] [address] [place] [address] Progress Note - Wound Care 04/11/23920 MR#: [id number] Acct: [id number] Name: ARMIN TURCIOS Rep #:[id number] : 1950 73 From: Aljeandro bar DPM PCP: Dr. Jessi Olguin MD [...] have been following with Dr. Anderson in [place] as well as PCP Dr. Olguin. They [...] Visit Information Type of service Follow-up Visit (Physician/RIBBON INKER ) Arrival Mode Ambulatory Transfer Assistance None [...] Date Recorded By Document 04/11/23 08:16 DL [employer] 04/11/23 08:26 DL 04/11/23 08:16 Wound Center Nurse 1 #9 LT ANKLE -Current Size (cm) - Length 1.4 -Current Size (cm) - Width 0.8 -Current Size (cm) - Depth 0.3 -Total Square Cm 1.12 -Exudate Amt Small -Exudate Type Serosanguineous -Wound Margin Distinct, Outline Attached -Granulation Amt Small (1-33%) -Granulation Quality Tutwiler -Necrosis Amt Large (67-100%) -Necrotic Tissue Type [...] status: with other specified complication Diabetes mellitus termite renewal inspector insulin use: with termite renewal inspector use Qualified Code(s): E11.69 - Type 2 diabetes mellitus with other specified complication; Z79.4 - residential (current) use of insulin (6) COPD (chronic [...] No signs of infection. Pain: May take ypxs-zaw-avdnwcv Tylenol extra strength for discomfort. Host factors: DM type II, chronic venous stasis, CHF, COPD, blindness I answered all the patient's questions. To return to the wound healing center in 1 week or call sooner if the patient has any questions or concerns. 04/11/23 1314 <Electronically signed by Alejandro Talbot DPM> Cosigner Signature (if applicable): CC: ~ Signed [facility] Work Phone: 1(801) 302-298610-26-2023 Progress note Author Alejandro Talbot [facility] March 28, 2023 12:23pm Note Date/Time March 28, 2023 8 :45am [facility] [address] [address] [place] [address] Progress Note - Wound Care 03/28/23 0844 MR#: [id number] Acct: [id number] Name: ARMIN TURCIOS Rep #:[id number] : 1950 73 From: Alejandro bar DPM [...] have been following with Dr. Anderson in [place] as well as PCP Dr. Olguin. They [...] service Follow-up Visit Follow-up Visit Follow-up Visit (Physician/RIBBON INKER (Physician/RIBBON INKER (Physician/RIBBON INKER ) ) ) Arrival Mode Ambulatory,Cane Ambulatory,Cane [...] Visit Information Type of service Follow-up Visit (Physician/RIBBON INKER ) Arrival Mode Ambulatory,Cane Transfer Assistance Accompanied [...] Date Recorded By Document 03/07/23 16:22 PL [id number] 03/07/23 16:26 PL Document 03/14/23 17:51 PL [id number] 03/14/23 17:54 PL Document 03/21/23 16:21 PL [id number] 03/21/23 16:23 PL 03/07/23 03/14/23 03/21/23 16:22 [...] Date 12/02/27 12/02/27 12/02/27 -Product Lot Number [id number] 025 -Percent Used 100 100 [...] status: with other specified complication Diabetes mellitus care home insulin use: with care home use Qualified Code(s): E11.69 - Type 2 diabetes mellitus with other specified complication; Z79.4 - termite control technician (current) use of insulin (7) Hyperlipidemia: CODE(S): [...] No signs of infection. Pain: May take jwvf-zqe-zbnhxik Tylenol extra strength for discomfort. Host factors: DM type II, chronic venous stasis, CHF, COPD, blindness I answered all the patient's questions. To return to the wound healing center in 2 weeks or call sooner if the patient has any questions or concerns. 03/28/23 1223 <Electronically signed by Alejandro Talbot DPM> Cosigner Signature (if applicable): CC: ~ Signed [facility] Work Phone: 1(507) 832-431410-20-2023 Progress note Author Alejandro Talbot [facility] March 22, 2023 12:44am Note Date/Time March 22, 2023 1 2:42am [facility] [address] [place] [address] Progress Note - Wound Care 03/22/23 0039 MR#: [id number] Acct: [id number] Name: ARMIN TURCIOS Rep #:[id number] : 1950 72 From: Alejandro bar DPM [...] have been following with Dr. Anderson in [place] as well as PCP Dr. Olguin. They [...] service Follow-up Visit Follow-up Visit Follow-up Visit (Physician/RIBBON INKER (Physician/RIBBON INKER (Physician/RIBBON INKER ) ) ) Arrival Mode Ambulatory,Cane Ambulatory,Cane [...] Date Recorded By Document 03/07/23 08:26 KW [employer] 03/07/23 08:39 KW Document 03/21/23 08:42 KW [employer] 03/21/23 08:47 KW 03/07/23 03/21/23 08:26 08:42 [...] Date Recorded By Document 03/07/23 16:22 PL [id number] 03/07/23 16:26 PL Document 03/14/23 17:51 PL [id number] 03/14/23 17:54 PL Document 03/21/23 16:21 PL [id number] 03/21/23 16:23 PL 03/07/23 03/14/23 03/21/23 16:22 [...] Date 12/02/27 12/02/27 12/02/27 -Product Lot Number [id number] -Percent Used 100 100 [...] diabetes mellitus without complications QUALIFIERS: Diabetes mellitus termite renewal inspector insulin use: with termite renewal inspector use Diabetes mellitus complication status: with other specified complication Qualified Code(s): E11.69 - Type 2 diabetes mellitus with other specified complication; Z79.4 - residential (current) use of insulin (7) Hyperlipidemia: CODE(S): [...] No signs of infection. Pain: May take pfyp-roc-ogbsrcz Tylenol extra strength for discomfort. Host factors: DM type II, chronic venous stasis, CHF, COPD, blindness I answered all the patient's questions. To return to the wound healing center in 1 week or call sooner if the patient has any questions or concerns. 03/22/23 0044 <Electronically signed by Alejandro Talbot DPM> Cosigner Signature (if applicable): CC: ~ Signed [facility] Work Phone: 1(568) 359-210010-12-2023 Progress note Author Alejandro Talbot [facility] March 14, 2023 9:26am Note Date/Time March 14, 2023 8 :40am [facility] [address] [place] [address] Progress Note - Wound Care 03/14/23 0839 MR#: [id number] Acct: [id number] Name: ARMIN TURCIOS Rep #:[id number] : 1950 72 From: Alejandro bar DPM [...] have been following with Dr. Anderson in [place] as well as PCP Dr. Olguin. They [...] Recorded Date Recorded By Document 03/07/23 08:26 MVP Vaultop 03/07/23 08:39 03/07/23 08:26 WC - Today's Visit Information Type of service Follow-up Visit (Physician/RIBBON INKER ) Arrival Mode Ambulatory,Cane Accompanied by Patient [...] Recorded Date Recorded By Document 03/07/23 08:26 MVP Vaultop 03/07/23 08:39 03/07/23 08:26 Wound Center Nurse [...] Date Recorded By Document 03/07/23 16:22 PL [id number] 03/07/23 16:26 PL 03/07/23 16:22 Wound Center [...] Disc -Expiration Date 12/02/27 -Product Lot Number [id number] -Percent Used 100 -Bleeding Controlled with [...] status: with other specified complication Diabetes mellitus care home insulin use: with care home use Qualified Code(s): E11.69 - Type 2 diabetes mellitus with other specified complication; Z79.4 - termite control technician (current) use of insulin (7) Hyperlipidemia: CODE(S): [...] No signs of infection. Pain: May take bkcz-cqa-yovbnqq Tylenol extra strength for discomfort. Host factors: DM type II, chronic venous stasis, CHF, COPD, blindness I answered all the patient's questions. To return to the wound healing center in 1 week or call sooner if the patient has any questions or concerns. 03/14/23 0904 <Electronically signed by Alejandro Talbot DPM> Cosigner Signature (if applicable): CC: ~ Signed [facility] Work Phone: 1(347) 926-792410-05-2023 Progress note Author Alejandro Talbot [facility] March 07, 2023 10:18am Note Date/Time March 07, 2023 9: 38am [facility] [address] [place] [address] Progress Note - Wound Care 03/07/23 0930 MR#: [id number] Acct: [id number] Name: ARMIN TURCIOS Rep #:[id number] : 1950 72 From: Alejandro bar DPM [...] state they have been following with Dr. Anedrson in [place] as well as PCP Dr. Olguin. They [...] Recorded Date Recorded By Document 03/07/23 08:26 Combatant Gentlemenop 03/07/23 08:39 03/07/23 08:26 WC - Today's Visit Information Type of service Follow-up Visit (Physician/RIBBON INKER ) Arrival Mode Ambulatory,Cane Accompanied by Patient [...] Recorded Date Recorded By Document 03/07/23 08:26 Combatant Gentlemenop 03/07/23 08:39 03/07/23 08:26 Wound Center Nurse [...] status: with other specified complication Diabetes mellitus termite renewal inspector insulin use: with care home use Qualified Code(s): E11.69 - Type 2 diabetes mellitus with other specified complication; Z79.4 - residential (current) use of insulin (7) Hyperlipidemia: CODE(S): [...] No signs of infection. Pain: May take fglp-usn-ehmnfwz Tylenol extra strength for discomfort. Host factors: DM type II, chronic venous stasis, CHF, COPD, blindness I answered all the patient's questions. To return to the wound healing center in 1 week or call sooner if the patient has any questions or concerns. 03/07/23 1018 <Electronically signed by Alejandro Talbot DPM> Cosigner Signature (if applicable): CC: ~ Signed [facility] Work Phone: 1(511) 674-443509-28-2023 Progress note Author Alejandro Talbot [facility] February 28, 2023 9:13am Note Date/Time February 28, 2023 8:33am [facility] [address] [place] [address] Progress Note - Wound Care 02/28/23 0833 MR#: [id number] Acct: [id number] Name: ARMIN TURCIOS Rep #:[id number] : 1950 72 From: Alejandro bar DPM [...] have been following with Dr. Anderson in [place] as well as PCP Dr. Olguin. They [...] Date Recorded By Document 02/14/23 08:08 DL [id number] 02/14/23 08:25 DL Edit Result 02/14/23 08:08 DL (1) [id number] 02/14/23 08:44 DL Document 02/21/23 08:31 DL Desktop 02/21/23 08:34 DL Document 02/28/23 08:22 DL Desktop 02/28/23 08:31 DL (1) Preferred language => Nigerian Able to Read => No: blind Able [...] to Perform => Denies Any => Declines Cultural/Taoism Needs that may affect => No Treatment Plan Would you allow our hospital precision thread grinder operator to => No meet you for the purpose of spiritual/ emotional support? Surface Grinder to contact place of congregation => No Discharge Instructions - Person Taught => Patient, => Significant Other Dressing Your Wound - Person Taught => Patient, => Significant Other *Welcome to the Wound Center - Person Taught => Patient, => Significant Other 02/14/23 02/21/23 02/28/23 08:08 08:31 08:22 WC - Today's Visit Information Type of service Initial Visit Follow-up Visit Follow-up Visit (Physician/RIBBON INKER (Physician/RIBBON INKER ) ) Arrival Mode Ambulatory,Cane Ambulatory Ambulatory, [...] & Hygeine No Communication Assessment Preferred language Nigerian Able to Read No: blind Able to [...] in Ability to Perform Denies Any Declines Culture/Taoism/Surface Grinder Cultural/Taoism Needs that may affect No Treatment Plan Would you allow our hospital precision thread grinder operator to No meet you for the purpose of spiritual/ emotional support? Surface Grinder to contact place of congregation No Teaching: Wound Center Discharge Instructions -Person Taught Patient, Significant Other Dressing Your Wound -Person Taught Patient, Significant Other *Welcome to the Wound Center -Person Taught Patient, Significant Other WC - Nurse 1 - General Ulcer Measurement Start: 02/14/23 08:08 Freq: Status: Active Protocol: Activity Type Activity Date Activity User E-sign Co-sign Detail Recorded Client Recorded Date Recorded By Document 02/14/23 08:08 DL [id number] 02/14/23 08:25 DL Document 02/21/23 08:31 DL [...] (1-33%) Medium (34-66%) Medium (34-66%) -Granulation Quality Tut[place]iler Red [place]iler -Necrosis Amt Large (67-100%) Medium (34-66%) Medium [...] Date Recorded By Document 02/14/23 12:48 PL [id number] 02/14/23 12:50 PL Document 02/21/23 11:55 PL [id number] 02/21/23 11:57 PL 02/14/23 02/21/23 12:48 11:55 [...] Disc -Expiration Date 11/02/27 -Product Lot Number [id number] -Percent Used 100 -Bleeding Controlled with [...] Date Recorded By Document 02/14/23 09:08 KW [id number] 02/14/23 09:16 KW Document 02/21/23 09:01 DL [...] status: with other specified complication Diabetes mellitus care home insulin use: with care home use Qualified Code(s): E11.69 - Type 2 diabetes mellitus with other specified complication; 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 Pain: May take tjoq-arx-bwouwtm Tylenol extra strength for discomfort. Host factors: DM type II, chronic venous stasis, CHF, COPD, blindness I answered all the patient's questions. To return to the wound healing center in 1 week or call sooner if the patient has any questions or concerns. 02/28/23912 <Electronically signed by Alejandro Talbot DPM> Cosigner Signature (if applicable): CC: ~ Signed [facility] Work Phone: 1(870) 592-214809-21-2023 Progress note Author Alejandro Talbot [facility] February 21, 2023 9:27am Note Date/Time February 21, 2023 9:05am [facility] [address] [place] [address] Progress Note - Wound Care 02/21/23 0904 MR#: [id number] Acct: [id number] Name: ARMIN TURCIOS Rep #:[id number] : 1950 72 From: Alejandro bar DPM [...] have been following with Dr. Anderson in [place] as well as PCP Dr. Olguin. They [...] Date Recorded By Document 02/14/23 08:08 DL [id number] 02/14/23 08:25 DL Edit Result 02/14/23 08:08 DL (1) [id number] 02/14/23 08:44 DL Document 02/21/23 08:31 DL Desktop 02/21/23 08:34 DL (1) Preferred language => Nigerian Able to Read => No: blind Able [...] to Perform => Denies Any => Declines Cultural/Taoism Needs that may affect => No Treatment Plan Would you allow our hospital precision thread grinder operator to => No meet you for the purpose of spiritual/ emotional support? Surface Grinder to contact place of congregation => No Discharge Instructions - Person Taught => Patient, => Significant Other Dressing Your Wound - Person Taught => Patient, => Significant Other *Welcome to the Wound Center - Person Taught => Patient, => Significant Other 02/14/23 02/21/23 08:08 08:31 - Today's Visit Information Type of service Initial Visit Follow-up Visit (Physician/RIBBON INKER ) Arrival Mode Ambulatory,Cane Ambulatory Transfer Assistance [...] & Hygeine No Communication Assessment Preferred language Nigerian Able to Read No: blind Able to [...] in Ability to Perform Denies Any Declines Culture/Taoism/Surface Grinder Cultural/Taoism Needs that may affect No Treatment Plan Would you allow our hospital precision thread grinder operator to No meet you for the purpose of spiritual/ emotional support? Surface Grinder to contact place of congregation No Teaching: Wound Center Discharge Instructions -Person Taught Patient, Significant Other Dressing Your Wound -Person Taught Patient, Significant Other *Welcome to the Wound Center -Person Taught Patient, Significant Other WC - Nurse 1 - General Ulcer Measurement Start: 02/14/23 08:08 Freq: Status: Active Protocol: Activity Type Activity Date Activity User E-sign Co-sign Detail Recorded Client Recorded Date Recorded By Document 02/14/23 08:08 DL [id number] 02/14/23 08:25 DL Document 02/21/23 08:31 DL [...] Amt Small (1-33%) Medium (34-66%) -Granulation Quality [place]iler Red -Necrosis Amt Large (67-100%) Medium (34-66%) [...] Date Recorded By Document 02/14/23 12:48 PL [id number] 02/14/23 12:50 PL 02/14/23 12:48 Wound Center [...] Date Recorded By Document 02/14/23 09:08 KW [id number] 02/14/23 09:16 KW Document 02/21/23 09:01 DL [...] status: with other specified complication 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 Pain: May take naoq-nsl-rqcnmeu Tylenol extra strength for discomfort. Host factors: DM type II, chronic venous stasis, CHF, COPD, blindness I answered all the patient's questions. To return to the wound healing center in 1 week or call sooner if the patient has any questions or concerns. 02/21/23926 <Electronically signed by Alejandro Talbot DPM> Cosigner Signature (if applicable): CC: ~ Signed [facility] Work Phone: 1(748) 473-880609-14-2023 History and physical note Author Alejandro Talbot [facility] February 14, 2023 12:11pm Note Date/Time February 14, 2023 8:27am [facility] [address] [place] [address] H&P Exam - Wound Care 02/14/23826 MR#: [id number] Acct: [id number] Name: ARMIN TURCIOS Rep #:[id number] : 1950 72 From: Alejandro bar DPM [...] have been following with Dr. Anderson in [place] as well as PCP Dr. Olguin. They stateoccasional use of mupirocin topical ointment but otherwise have not been applying dressings to the site. They state the wound has been present for a few weeks and has not made much progress and thus they were referred to the wound care center for continued wound healing. He denies N/V/F/chills. He has no further complaints. [facility] Medical History Ambulates with cane [...] Recorded Date Recorded By Document 02/14/23 08:08 [id number] 02/14/23 08:25 DL 02/14/23 08:08 - Today's [...] Date Recorded By Document 02/14/23 08:08 MARCELO [id number] 02/14/23 08:25 DL 02/14/23 08:08 Wound Center Nurse 1 #8 L Leon -Current Size (cm) - Length 1.8 -Current Size (cm) - Width 2.2 -Current Size (cm) - Depth 0.2 -Total Square Cm 3.96 -Photo Taken Yes -Classification - Thickness Full Thickness without Exposed Support Structure -Exudate Amt Medium -Exudate Type Serosanguineous -Wound Margin Distinct, Outline Attached -Granulation Amt Small (1-33%) -Granulation Quality Tutwiler -Necrosis Amt Large (67-100%) -Necrotic Tissue Type [...] diabetes mellitus without complications QUALIFIERS: Diabetes mellitus care home insulin use: with care home use Diabetes mellitus complication status: with other specified complication Qualified Code(s): E11.69 - Type 2 diabetes mellitus with other specified complication; Z79.4 - residential (current) use of insulin (5) Hyperlipidemia: CODE(S): [...] No signs of infection. Pain: May take qvry-rnc-rmpjfdv Tylenol extra strength for discomfort. Host factors: DM type II, chronic venous stasis, CHF, COPD, blindness I answered all the patient's questions. To return to the wound healing center in 1 week or call sooner if the patient has any questions or concerns. 02/14/23 1211 <Electronically signed by Alejandro Talbot DPM> Marceligner Signature (if applicable): CC: ~ Signed [facility] Work Phone: Evaluation note* Diagnosis Onset Date Resolution Status Bronchiectasis chronic Chronic diastolic (congestive) heart failure chronic COPD (chronic obstructive pulmonary disease) chronic Ulcer of left lower extremity with fat layer exposed acute Venous insufficiency of both lower extremities acute DM type 2 (diabetes mellitus, type 2) chronic [facility] Work Phone: Evaluation note* Diagnosis Onset Date [...] type 2 (diabetes mellitus, type 2) chronic [facility] Work Phone: Evaluation note* Diagnosis Onset Date [...] 2) chronic Infected cyst of skin acute [facility] Work Phone: Evaluation note* Diagnosis Onset Date Resolution Status Infected cyst of skin acute Open wound of back without complication acute DM type 2 (diabetes mellitus, type 2) chronic Infected cyst of skin acute H/O excision of epidermal inclusion cyst acute H/O excision of epidermal inclusion cyst acute Bronchiectasis chronic H/O excision of epidermal inclusion cyst acute [facility] Work Phone: Evaluation noteNo assessment information available [facility] Work Phone: Evaluation note* Diagnosis Onset Date [...] left calf with fat layer exposed chronic [facility] Work Phone: Evaluation note* Diagnosis Onset Date [...] left calf with fat layer exposed chronic [facility] Work Phone: Evaluation note* Diagnosis Onset Date [...] left calf with fat layer exposed chronic [facility] Work Phone: Evaluation note* Diagnosis Onset Date [...] left calf with fat layer exposed chronic [facility] Work Phone: Evaluation note* Diagnosis Onset Date [...] left calf with fat layer exposed chronic [facility] Work Phone: Evaluation note* Diagnosis Onset Date [...] left calf with fat layer exposed chronic [facility] Work Phone: Evaluation note* Diagnosis Onset Date [...] left calf with fat layer exposed chronic [facility] Work Phone: Evaluation note* Diagnosis Onset Date [...] left ankle with fat layer exposed chronic [facility] Work Phone: History and physical note Author Shonda Gaston [facility] Note Date/Time September 01, 2024 10:0 1pm [facility] Medical Records Department [address] [place] [address] H&P Exam - Hospitalist 09/01/242100 MR#: [id number] Acct: [id number] Name: LATRICE TURCIOS Rep #:[id number] : 1950 74 From: Shonda Gaston MD PCP: Dr. Jessi Olguin MD Status:ADM IN Location: [place] [id number] HPI - General General Date of [...] AICD, Obesity, Hypothyroidism who presents to the [facility] ED on 09/01/24 with history of [...] to the hospital for treatment of pneumonia. [facility] Medical History Coronary artery disease [...] % (Auto) 56.2, Lymph % (Auto) 30.1, Swain % (Auto) 10.7 H, Eos % (Auto) [...] for infiltrates. Elevated left hemidiaphragm. [facility] Assessment & Plan Assessment/Plan (1) [...] AICD, Obesity, Hypothyroidism who presents to the [facility] ED on 09/01/24 with history of [...] syncopal event eventually taken to the cardiac [place] with stenting of the RCA in addition to the ICD given cardiac pauses and arrhythmia. Will continue metoprolol regimen. Per most recent cardiology note/06/27 EP follow-up is arranged for next month at [place]. #7. CAD: Status post PCI 06/25/2024, will [...] 16 minutes. Charges/Coding Visit Charges Inpatient E&M: 46790 Init Hosp L3 Procedures Hospitalists Procedures: 33689 Advncd Care Plan 30 Min 09/01/241 <Electronically signed by Shonda Gaston MD> Cosigner Signature (if applicable): CC: Dr. Shonda Gaston MD; Dr. Jessi Olguin MD~ Signed [facility] Work Phone: Hospital course Narrative No data available for this section [facility] Summary Purpose Family History No Family History Records Found Relationship Condition Age at Onset Recorded Date/T sayra mother Malignant neoplasm Unknown Relationship Condition Age at Onset Recorded Date/T sayra mother Malignant neoplasm Unknown sister Cardiac disease Unknown Advance Directives No Advanced Directives Records Found Advance Directive Response Recorded Date/ Time Living Will No August 14, 2020 4:15pm Power of Security Investigator Yes August 14 4:15pm Advance Directive Response Recorded Date/ Time Living Will No January 02, 2022 1:25pm Power of Security Investigator No January 02 1:25pm Advance Directive Response Recorded Date/ Time Living Will No July 10 10:35pm Power of Security Investigator No July 10, 2022 10:35pm Advance Directive Response Recorded Date/ Time Living Will No July 10 11:35pm Power of Security Investigator No July 10, 2022 11:35pm Advance Directive Response Recorded Date/ Time Living Will No May 25 7:07pm Do you have a Healthcare Power of Security Investigator? No May 25, 2024 7:07pm Living Will No June 24 1:39pm Do you have a Healthcare Power of Security Investigator? No June 24, 2024 1:39pm Living Will No July 07 2:59am Do you have a Healthcare Power of Security Investigator? Yes July 07, 2024 2:59am Name of Medical Power of Security Investigator Callie July 07, 2024 2:59am Living Will No September 01, 2024 4:47pm Do you have a Healthcare Power of Security Investigator? No September 01, 2024 4:47pm Advance Directive Response Recorded Date/ Time Living Will No May 25, 7:07pm Do you have a Healthcare Power of Security Investigator? No May 25, 2024 7:07pm Living Will No June 24 1:39pm Do you have a Healthcare Power of Security Investigator? No June 24, 2024 1:39pm Living Will No July 07 2:59am Do you have a Healthcare Power of Security Investigator? Yes July 07, 2024 2:59am Name of Medical Power of Security Investigator Callie July 07, 2024 2:59am Living Will No September 01, 2024 10:11pm Do you have a Healthcare Power of Security Investigator? No September 01, 2024 10:11pm Advance Directive Response Recorded Date/ Time Living Will No June 24 1:39pm Do you have a Healthcare Power of Security Investigator? No June 24, 2024 1:39pm Living Will No July 07 2:59am Do you have a Healthcare Power of Security Investigator? Yes July 07, 2024 2:59am Name of Medical Power of Security Investigator Callie July 07, 2024 2:59am Living Will No September 01, 2024 10:11pm Do you have a Healthcare Power of Security Investigator? No September 01, 2024 10:11pm Living Will No September 21, 2024 3:03pm Do you have a Healthcare Power of Security Investigator? No September 21, 2024 3:03pm Advance Directive Response Recorded Date/ Time Living Will No September 01, 2024 10:11pm Do you have a Healthcare Power of Security Investigator? No September 01, 2024 10:11pm Living Will No September 21, 2024 3:03pm Do you have a Healthcare Power of Security Investigator? No September 21, 2024 3:03pm Chief Complaint [...] Moderate pleural effusion August 03 8:15am S/P [facility] 06/27September 01, 2024 7:52 am CHEST [...] section and content) DATE CREATED AUTHOR 06/11/2018 [facility] ([place]) DATE CREATED AUTHOR AUTHOR'S ORGANIZ ATION 02/14/2021 [facility] DATE CREATED AUTHOR AUTHOR'S ORGANIZ ATION 07/07/2024 [facility] DATE CREATED AUTHOR AUTHOR'S ORGANIZ ATION 11/11/2024 [facility] Goals (unrecognized section and content) Goals [...] End: August 03, 2024 Mey Rice NP, TIMBER POISONER-C Attending Provider Active Start: August 03, 2024 [...] End: November 10, 2024 Michelle Graham , TIMBER POISONER-C Attending Provider Active Start: November 10, 2024 [...] Provider, Referring P rovider Active Mey Rice TIMBER POISONER, TIMBER POISONER-C Attending Provider Active Team Status: Inactive Member [...] Provider, Referring P rovider Active Sedrick Irvin TIMBER POISONER, TIMBER POISONER-C Active Danni Davis TIMBER POISONER, TIMBER POISONER-C Attending Provider Active Team Status: Inactive Member [...] End: July 10, 2024 Danni Davis NP, TIMBER POISONER-C Attending Provider Active Start: July 10, 2024 End: July 10, 2024 Danni Davis TIMBER POISONER, TIMBER POISONER-C Referring Provider Active Start: July 10, 2024 [...] BE BASED ON THE PRIMARY CLINICAL RECORDS. [employer] provides no warranty or guarantee of the accuracy or completeness of information in this document.
[2024-11-14] MEDS: Amiodarone 360 MG in Dextrose 5% Viaflo Bag 192.8 ML 33.3 MG CONT INF (13:35)
[2024-11-14 13:38] LABS: Magnesium 1.7 mg/dL (1.5-2.2)
--- NOTE | 2024-11-14 13:41 | PCM.CONS.C ---
Assessment & Plan Assessment/Plan (1) V tach: (2) Atrial fibrillation: (3) Single implantable cardioverter-defibrillator (ICD) in situ: (4) Coronary artery disease: PLAN: Plan 1. ICD discharge - will obtain device interrogation. He has been started on amiodarone. Will continue this until we obtain the full device interrogation. Keep electrolytes magnesium and potassium within normal limits. He will likely need a left heart cath pending ICD findings. For that reason recommend switching Xarelto to heparin 2. Atrial fibrillation: Device interrogation as mentioned above obtain echocardiogram 3. CAD status post PCI to the ostial RCA June 2024. Denies chest pain at this time. 4. Hypertension 5. Hyperlipidemia HPI Consult Data Date of Consult: 11/14/24 HPI Narrative Reason for Consultation: VT HPI Narrative: ARMIN CHAND, is a 74 M who presents with reports of about 15 ICD discharges. Reports that he was in the bathroom cleaning up and then felt unwell following that he felt his ICD ICD discharge. He called his to help him and subsequently had up to 10 more ICD discharges before EMS arrived; reports he had about 3-5 ICD discharges in the ambulance. He reports lightheadedness before the ICD discharges. He denies chest pain. He denies any new medications. On arrival to the ER his troponins were mildly elevated in the 20s. At this time has no complaints of chest pain. His ICD was recently inserted in June 2024. This was following hospitalization for cardiac arrest and VT. During that hospital admission he had a PCI to his RCA [facility] Medical History Coronary artery disease Kidney stones Atrial fibrillation Wears dentures Blind Depression Insulin dependent diabetes mellitus Ambulates with cane Anemia High cholesterol Injury of head and neck Former smoker History of Holter monitoring History of echocardiogram Cardiology follow-up encounter History of atrial fibrillation Open wound of back without complication Venous insufficiency of both lower extremities Ulcer of left lower extremity with fat layer exposed Longstanding persistent atrial fibrillation Left ventricular diastolic dysfunction Chronic diastolic (congestive) heart failure Right bundle branch block (RBBB) Essential (primary) hypertension COPD (chronic obstructive pulmonary disease) Anxiety and depression Obesity (BMI 30-39.9) Hyperlipidemia Hypothyroidism DM type 2 (diabetes mellitus, type 2) Hx of transfusion of whole blood Home Medications ?Medication ?Instructions ?Recorded ?Last Taken ?Type metformin 500 mg tablet,extended 1,000 mg PO DAILY 03/02/20 11/14/24 History release 24 hr PEP device #1 ea 11/14/21 Unknown Rx ferrous sulfate 325 mg (65 mg 325 mg PO DAILY supplement 01/02/22 11/14/24 History iron) tablet acetaminophen 500 mg tablet 1,000 mg PO Q8H PRN pain 08/03/24 09/20/24 History buspirone 7.5 mg tablet 7.5 mg PO BID 08/03/24 11/14/24 History hydroxyzine pamoate 50 mg capsule 50 mg PO BID 08/03/24 11/14/24 History insulin lispro 100 unit/mL 12 unit subcut BIDAC 08/03/24 11/14/24 History subcutaneous pen (Humalog KwikPen (U-100) Insulin) lisinopril 5 mg tablet 5 mg PO DAILY bp 08/03/24 09/01/24 History Held on 09/03/24. Instructions: low bp atorvastatin 40 mg tablet 40 mg PO QHS 09/01/24 11/13/24 History clopidogrel 75 mg tablet 75 mg PO DAILY 09/01/24 11/14/24 History levothyroxine 175 mcg tablet 175 mcg PO DAILY 09/01/24 09/20/24 History metoprolol succinate 25 mg 25 mg PO DAILY 09/01/24 11/14/24 History tablet,extended release 24 hr rivaroxaban 20 mg tablet 20 mg PO DAILY 09/01/24 11/14/24 History venlafaxine 75 mg capsule,extended 75 mg PO DAILY 09/01/24 11/14/24 History release 24 hr furosemide 40 mg tablet (Lasix) 40 mg PO DAILY #60 tabs 09/03/24 11/14/24 Rx acetylcysteine 600 mg capsule 600 mg PO BID 09/21/24 11/14/24 History ascorbic acid (vitamin C) 500 mg 500 mg PO DAILY 09/21/24 11/14/24 History tablet cholecalciferol (vitamin D3) 25 25 mcg PO DAILY 09/21/24 11/14/24 History mcg (1,000 unit) tablet (Vitamin D3) insulin glargine 100 unit/mL (3 10 unit subcut DAILY 09/21/24 11/14/24 History mL) subcutaneous pen (Lantus Solostar U-100 Insulin) blood sugar diagnostic (True #10 ea 11/10/24 Unknown History Metrix Glucose Test Strip) Allergy/AdvReac Type Severity Reaction Status Date / Time shellfish derived Allergy Hives Verified 11/10/24 09:03 Family History Mother Cancer Sister Heart disease Father , age 97, no medical history per family reported, not taking any medications. No problems noted. Surgical History ICD (implantable cardioverter-defibrillator) in place History of coronary artery stent placement (06/25/24) Hx of excision of dermoid cyst (~01/2022) Hx of cataract surgery History of inguinal hernia repair H/O hernia repair Social History household members: spouse Smoking Status: Former smoker quit date: 06/03/09 second hand exposure: No alcohol intake: never substance use type: does not use Physical Exam Const Constitutional Narrative: General?alert oriented HEENT- normal extraocular movements Neck supple no JVD Cardiovascular- normal S1-S2, no murmurs Pulmonary- clear to auscultation bilaterally Abdomen- soft to palpation, normal sounds Extremities- no edema Musculoskeletal- no tenderness no swelling Neurological -alert oriented Psych -normal affect Risk Stratification Risk Stratification Applicable: No Objective Data Vital Signs: Vital Signs Temp Pulse Resp BP Pulse Ox O2 Del Method 97.7 F L 69 15 107/70 97 Room Air 11/14/24 13:21 11/14/24 13:21 11/14/24 13:21 11/14/24 13:21 11/14/24 13:21 11/14/24 12:55 Oxygen Delivery Method Room Air Weight: 225 lb 12.054 oz Body Mass Index (BMI) 28.2 Lab / Micro Data 11/14/24 10:33 11/14/24 10:33 Labs: Laboratory Results - last 24 hr 11/14/24 10:33: WBC 7.8, RBC 4.07 L, Hgb 11.9 L, Hct 36.7 L, MCV 90.2, MCH 29.2, MCHC 32.4, RDW Std Deviation 45.3 H, RDW Coeff of Marifer 13.8, Plt Count , Immature Gran % (Auto) 0.400, Neut % (Auto) 43.6 L, Lymph % (Auto) 43.8 H, Oliver % (Auto) 10.3 H, Eos % (Auto) 1.5, Baso % (Auto) 0.4, Absolute Neuts (auto) 3.4, Absolute Lymphs (auto) 3.42, Nucleated RBC % 0, Platelet Estimate ADEQUATE, Sodium 137, Potassium 3.3, Chloride 100, Carbon Dioxide 22.0, Anion Gap 14, BUN 25 H, Creatinine 1.09, Estim Creat Clear Calc 74.75, Est GFR (MDRD) Non-Af 70, BUN/Creatinine Ratio 22.6 H, Glucose 230 H, Calcium 9.3, Magnesium 1.7, Troponin T High Sens 28 H D 11/14/24 12:33: Troponin T Hi Sens 2 Hr 77 H* Rhythm Strip Rhythm Strip: Paced Rate: 96 Ectopy: None Cardiology Labs/Tests 11/14/24 10:33: WBC 7.8, RBC 4.07 L, Hgb 11.9 L, Hct 36.7 L, MCV 90.2, MCH 29.2, MCHC 32.4, Plt Count , Immature Gran % (Auto) 0.400, Neut % (Auto) 43.6 L, Lymph % (Auto) 43.8 H, Oliver % (Auto) 10.3 H, Eos % (Auto) 1.5, Baso % (Auto) 0.4, Absolute Neuts (auto) 3.4, Nucleated RBC % 0, Sodium 137, Potassium 3.3, Chloride 100, Carbon Dioxide 22.0, Anion Gap 14, BUN 25 H, Creatinine 1.09, Est GFR (MDRD) Non-Af 70, BUN/Creatinine Ratio 22.6 H, Glucose 230 H, Calcium 9.3, Magnesium 1.7 Rhythm: EKG: ECHO: Stress Test: Cardiac Cath: PCI: CT Surgery: Holter monitor: EPS: PPM: CXR: Chest CT Scan: Radiography Diagnostic Testing: Radiology Impression Chest X-Ray 11/14/24 10:37 IMPRESSION: No acute process. Bochdalek's hernia. Reading Location[facility]
[2024-11-14 16:32] LABS: Troponin T High Sens 4 HR 165 ng/L (<=22)
[2024-11-14 16:46] LABS: Bedside Glucose 213 mg/dL (74-106)
[2024-11-14] MEDS: Insulin Lispro 100 UNIT/ML INSULN.PEN 12 UNIT SC (17:36)
[2024-11-14] MEDS: Insulin Lispro 100 UNIT/ML INSULN.PEN SC (17:37)
[2024-11-14] MEDS: Amiodarone 360 MG in Dextrose 5% Viaflo Bag 192.8 ML 16.7 MG CONT INF (19:42)
[2024-11-14] MEDS: busPIRone 15 MG TABLET 7.5 MG PO (22:02)
[2024-11-14] MEDS: hydrOXYzine PAM 25 MG Capsule 50 MG PO (22:05)
[2024-11-14] MEDS: Atorvastatin Calcium 40 MG Tablet PO (22:06)
[2024-11-14 22:33] LABS: Bedside Glucose 121 mg/dL (74-106)
[2024-11-15] VITALS (22 sets, daily range): BP systolic 96–135; BP diastolic 62–81; PULSE 65–77; RESP 12–23; TEMP 36.1–36.8; O2SAT 93–99
[2024-11-15] MEDS: Levothyroxine 175 MCG Tablet PO (05:24)
[2024-11-15 06:18] LABS: Absolute Lymphocyte Count 1.77 X10^3/uL (0.83-4.51); Absolute Neutrophil Count 3.2 X10^3/uL (2.0-7.7); Basophil# 0.01 X10^3/uL; Basophil% 0.2 % (0-1); Eosinophil# 0.07 X10^3/uL; Eosinophils% 1.2 % (0-5); Hematocrit 32.1 % (40-54); Hemoglobin 10.8 g/dL (13.0-16.5); Lymphocyte # 1.77 X10^3/ul (0.83-4.51); Lymphocyte % 30.9 % (19-41); Mean Corp Hgb Conc 33.6 g/dL (32-36); Mean Corpuscular Hgb 29.3 pg (27.0-32.0); Mean Corpuscular Volume 87.2 fL (80-94); Monocyte# 0.62 X10^3/uL; Monocyte% 10.8 % (0-10); NRBC Flagged by Analyzer 0 % (0-5); Neutrophil # 3.24 X10^3/uL (2.7-7.7); Neutrophil % 56.6 % (47-70); POSITIVE COUNT YES; RBC Distribution Width CV 13.6 % (11.6-14.6); RBC Distribution Width SD 43.2 fl (35.1-43.9); Red Blood Count 3.68 M/mm3 (4.6-6.2); White Blood Count 5.7 K/mm3 (4.4-11.0)
[2024-11-15 06:44] LABS: Anion Gap 14 (5-15); BUN 28 mg/dL (4-19); BUN/Creat Ratio 28.9 RATIO (10-20); Calcium,Total 9.3 mg/dL (7.6-11.0); Chloride 100 mmol/L (98-108); Creatinine, Serum 0.96 mg/dL (0.70-1.20); EST Glomerular Filtration Rate 82 (>60); Estimated Creatinine Clearance 80.37 ml/min (50-250); Glucose 195 mg/dL (70-99); Potassium 3.7 mmol/L (3.3-5.1); Sodium Level 135 mmol/L (133-145)
[2024-11-15 06:57] LABS: Differential Indicated SCAN CRITERIA MET
[2024-11-15 06:58] LABS: Differential Comment SCANNED; Platelet Estimate ADEQUATE (ADEQ)
[2024-11-15] MEDS: Amiodarone 360 MG in Dextrose 5% Viaflo Bag 192.8 ML 16.7 MG CONT INF ×2 (08:00→14:34)
[2024-11-15] MEDS: Insulin Lispro 100 UNIT/ML INSULN.PEN 12 UNIT SC ×2 (08:04→17:34)
[2024-11-15] MEDS: Insulin Lispro 100 UNIT/ML INSULN.PEN SC ×4 (08:05→20:20)
[2024-11-15] MEDS: busPIRone 15 MG TABLET 7.5 MG PO ×2 (08:06→20:21)
[2024-11-15] MEDS: Venlafaxine XR 75 MG Capsule PO (08:07)
[2024-11-15] MEDS: Clopidogrel Bisulfate 75 MG Tablet PO (08:08)
[2024-11-15] MEDS: hydrOXYzine PAM 25 MG Capsule 50 MG PO ×2 (08:08→20:21)
[2024-11-15] MEDS: Cholecalciferol (VIT D3) 25 MCG TABLET (1,000 UNITS) PO (08:08)
[2024-11-15] MEDS: Rivaroxaban 20 MG Tablet PO (08:09)
[2024-11-15 08:31] LABS: Bedside Glucose 198 mg/dL (74-106)
--- NOTE | 2024-11-15 10:45 | PCM.PN.CARD ---
Subjective Subjective no complaints overnight Objective Data Vital Signs: Vital Signs Temp Pulse Resp BP Pulse Ox O2 Del Method 97.0 F L 72 12 105/74 94 Room Air 11/15/24 09:00 11/15/24 10:00 11/15/24 10:00 11/15/24 10:00 11/15/24 10:00 11/15/24 09:24 Oxygen Delivery Method Room Air Weight: 222 lb 8 oz Body Mass Index (BMI) 27.1 Intake & Output: Intake and Output for Last 24 Hours 11/13/24 11/14/24 11/15/24 23:59 23:59 23:59 Intake Total 303.00 / 303.00 233.40 / 233.40 Balance 303.00 / 303.00 233.40 / 233.40 Lab / Micro Data 11/15/24 05:25 11/15/24 05:25 Labs: Laboratory Results - last 24 hr 11/14/24 10:33: WBC 7.8, RBC 4.07 L, Hgb 11.9 L, Hct 36.7 L, MCV 90.2, MCH 29.2, MCHC 32.4, RDW Std Deviation 45.3 H, RDW Coeff of Marifer 13.8, Plt Count , Immature Gran % (Auto) 0.400, Neut % (Auto) 43.6 L, Lymph % (Auto) 43.8 H, [place] % (Auto) 10.3 H, Eos % (Auto) 1.5, Baso % (Auto) 0.4, Absolute Neuts (auto) 3.4, Absolute Lymphs (auto) 3.42, Nucleated RBC % 0, Platelet Estimate ADEQUATE, Sodium 137, Potassium 3.3, Chloride 100, Carbon Dioxide 22.0, Anion Gap 14, BUN 25 H, Creatinine 1.09, Estim Creat Clear Calc 74.75, Est GFR (MDRD) Non-Af 70, BUN/Creatinine Ratio 22.6 H, Glucose 230 H, Calcium 9.3, Magnesium 1.7, Troponin T High Sens 28 H D 11/14/24 12:33: Troponin T Hi Sens 2 Hr 77 H* 11/14/24 15:30: Troponin T Hi Sens 4Hr 165 H* 11/14/24 16:27: POC Glucose 213 H 11/14/24 22:00: POC Glucose 121 H 11/15/24 05:25: WBC 5.7, RBC 3.68 L, Hgb 10.8 L, Hct 32.1 L, MCV 87.2, MCH 29.3, MCHC 33.6, RDW Std Deviation 43.2, RDW Coeff of Marifer 13.6, Plt Count TNP, MPV TNP, Immature Gran % (Auto) 0.300, Neut % (Auto) 56.6, Lymph % (Auto) 30.9, Noble % (Auto) 10.8 H, Eos % (Auto) 1.2, Baso % (Auto) 0.2, Absolute Neuts (auto) 3.2, Absolute Lymphs (auto) 1.77, Nucleated RBC % 0, Differential Comment SCANNED, Platelet Estimate ADEQUATE, Sodium 135, Potassium 3.7, Chloride 100, Carbon Dioxide 22.0, Anion Gap 14, BUN 28 H, Creatinine 0.96, Estim Creat Clear Calc 80.37, Est GFR (MDRD) Non-Af 82, BUN/Creatinine Ratio 28.9 H, Glucose 195 H, Calcium 9.3 11/15/24 08:04: POC Glucose 198 H Rhythm Strip Rhythm Strip: Paced Rate: 96 Ectopy: None Cardiology Labs/Tests 11/14/24 10:33: WBC 7.8, RBC 4.07 L, Hgb 11.9 L, Hct 36.7 L, MCV 90.2, MCH 29.2, MCHC 32.4, Plt Count , Immature Gran % (Auto) 0.400, Neut % (Auto) 43.6 L, Lymph % (Auto) 43.8 H, Noble % (Auto) 10.3 H, Eos % (Auto) 1.5, Baso % (Auto) 0.4, Absolute Neuts (auto) 3.4, Nucleated RBC % 0, Sodium 137, Potassium 3.3, Chloride 100, Carbon Dioxide 22.0, Anion Gap 14, BUN 25 H, Creatinine 1.09, Est GFR (MDRD) Non-Af 70, BUN/Creatinine Ratio 22.6 H, Glucose 230 H, Calcium 9.3, Magnesium 1.7 11/15/24 05:25: WBC 5.7, RBC 3.68 L, Hgb 10.8 L, Hct 32.1 L, MCV 87.2, MCH 29.3, MCHC 33.6, Plt Count TNP, MPV TNP, Immature Gran % (Auto) 0.300, Neut % (Auto) 56.6, Lymph % (Auto) 30.9, Noble % (Auto) 10.8 H, Eos % (Auto) 1.2, Baso % (Auto) 0.2, Absolute Neuts (auto) 3.2, Nucleated RBC % 0, Sodium 135, Potassium 3.7, Chloride 100, Carbon Dioxide 22.0, Anion Gap 14, BUN 28 H, Creatinine 0.96, Est GFR (MDRD) Non-Af 82, BUN/Creatinine Ratio 28.9 H, Glucose 195 H, Calcium 9.3 Rhythm: EKG: ECHO: Stress Test: Cardiac Cath: PCI: CT Surgery: Holter monitor: EPS: PPM: CXR: Chest CT Scan: Radiography Diagnostic Testing: Radiology Impression Chest X-Ray 11/14/24 10:37 IMPRESSION: No acute process. Bochdalek's hernia. Reading Location: [facility] Physical Exam Const Constitutional Narrative: General?alert oriented HEENT- blind left eye, atraumatic Neck supple no JVD Cardiovascular- normal S1-S2, no murmurs Pulmonary- clear to auscultation bilaterally Abdomen- soft to palpation, normal sounds Extremities- no edema Musculoskeletal- no tenderness no swelling Neurological -alert oriented Psych -normal affect Assessment & Plan Assessment/Plan (1) V tach: (2) Atrial fibrillation: (3) Single implantable cardioverter-defibrillator (ICD) in situ: (4) Coronary artery disease: PLAN: Plan 1. ICD discharge -device interrogation shows multiple appropriate ICD discharges for VT. Currently on amiodarone gtt. He will need ischemic workup to rule out ischemia/significant coronary artery disease given last PCI in June 2024. However he had Xarelto yesterday, plan for left heart cath on Saturday In the meantime obtain limited echocardiogram. There is a chance that this may be scar mediated VT. Pending findings of heart cath he may need a cardiac MRI to determine scar burden if his ICD is MRI safe. Cont heparin, Cont amio gtt for now with plan to transition to po 2. Atrial fibrillation: Device interrogation as mentioned above obtain echocardiogram 3. CAD status post PCI to the ostial RCA June 2024. Denies chest pain at this time. 4. Hypertension 5. Hyperlipidemia
[2024-11-15 11:28] LABS: Bedside Glucose 239 mg/dL (74-106)
[2024-11-15] MEDS: Furosemide 40 MG Tablet PO (12:24)
[2024-11-15] MEDS: Ferrous Sulfate 325 MG Tablet PO (12:24)
[2024-11-15] MEDS: Ascorbic Acid 500 MG Tablet PO (12:24)
[2024-11-15] MEDS: Insulin Glargine-YFGN 100 UNIT/ML Pen 10 UNIT SC (12:32)
--- NOTE | 2024-11-15 13:13 | PN_ITS ---
Subjective Subjective Patient seen and examined. His was by his bedside. He had no active complaints. He had the ICD interrogated earlier this morning and it showed about 12 episodes of ventricular tachycardia and ventricular fibrillation for which the ICD fired between yesterday and today. Cardiology is on board. He denies any chest pain or any other symptoms. Review of systems otherwise negative. He remains on amiodarone drip. Objective Data Objective Data Vital Signs: Vital Signs Temp Pulse Resp BP Pulse Ox O2 Del Method 97.0 F L 72 16 96/62 96 Room Air 11/15/24 09:00 11/15/24 12:00 11/15/24 12:00 11/15/24 12:00 11/15/24 12:00 11/15/24 09:24 Oxygen Delivery Method Room Air Weight: 222 lb 8 oz Body Mass Index (BMI) 27.1 Intake & Output: Intake and Output for Last 24 Hours 11/13/24 11/14/24 11/15/24 23:59 23:59 23:59 Intake Total 303.00 / 303.00 666.80 / 666.80 Output Total 375 / 375 Balance 303.00 / 303.00 291.80 / 291.80 Lab / Micro Data 11/15/24 05:25 11/15/24 05:25 Labs: Laboratory Results - last 24 hr 11/14/24 10:33: Magnesium 1.7 11/14/24 15:30: Troponin T Hi Sens 4Hr 165 H* 11/14/24 16:27: POC Glucose 213 H 11/14/24 22:00: POC Glucose 121 H 11/15/24 05:25: WBC 5.7, RBC 3.68 L, Hgb 10.8 L, Hct 32.1 L, MCV 87.2, MCH 29.3, MCHC 33.6, RDW Std Deviation 43.2, RDW Coeff of Marifer 13.6, Plt Count TNP, MPV TNP, Immature Gran % (Auto) 0.300, Neut % (Auto) 56.6, Lymph % (Auto) 30.9, [place] % (Auto) 10.8 H, Eos % (Auto) 1.2, Baso % (Auto) 0.2, Absolute Neuts (auto) 3.2, Absolute Lymphs (auto) 1.77, Nucleated RBC % 0, Differential Comment SCANNED, Platelet Estimate ADEQUATE, Sodium 135, Potassium 3.7, Chloride 100, Carbon Dioxide 22.0, Anion Gap 14, BUN 28 H, Creatinine 0.96, Estim Creat Clear Calc 80.37, Est GFR (MDRD) Non-Af 82, BUN/Creatinine Ratio 28.9 H, Glucose 195 H, Calcium 9.3 11/15/24 08:04: POC Glucose 198 H 11/15/24 11:07: POC Glucose 239 H Rhythm Strip Rhythm Strip: Paced Rate: 96 Ectopy: None Physical Exam Const alert, oriented x3 and no apparent distress General Appearance: cooperative HEENT normocephalic, head/scalp atraumatic, hearing grossly normal bilaterally and moist oral mucous membranes Eyes Eyes Narrative: patient legally blind Neck supple and no JVD Lymph Lymphatic: no lymphedema noted Resp normal respiratory effort, normal air movement, no use of accessory muscles and clear to auscultation bilaterally Cardio regular rate, regular rhythm, S1 normal heart sound, S2 normal heart sound and no murmurs GI normal to inspection, nondistended, normoactive bowel sounds and soft to palpation Extremity normal to inspection and full ROM General Extremity: no tenderness to palpation of joints or extremities Skin General Skin Exam: no breakdown Neuro moves all extremities and no focal motor deficits Neuro Narrative: Patient legally blind Sensorium / Orientation: awake and alert Motor Exam: strength 5/5 throughout Psych thought process normal, cooperative and affect normal Appearance: appropriate Assessment & Plan Assessment/Plan (1) V tach: PLAN: Plan #Chest pain in the setting of ICD firing * Admit to PCU. Patient has an ICD in situ and states on the day of admission he went to use the bathroom and got lightheaded when standing up. His ICD started going off and firing * He therefore called the EMS and came into the ED. EMS noticed the patient was in intermittent ventricular tachycardia * Patient has his ICD inserted in June 2024. He does not does not seem to be on any antiarrhythmics. * EKG showed a paced rhythm. * on amiodarone drip * cardiology on board * 2D echo ordered * troponins trended up to a peak of 165 * ICD interrogated today showed multiple episodes of ventricular tachycardia and ventricular fibrillation. * * * #Type 2 diabetes mellitus: * On Lantus 10 units daily. * InsulinSliding scale. Checks ACHS. #Atrial fibrillation: Status post pacemaker. On Xarelto and metoprolol #History of CAD: Status post stents. #Benign essential hypertension: On metoprolol #Heart failure preserved ejection fraction: Not in exacerbation. On p.o. Lasix. #Hyperlipidemia: On statin #Hypothyroidism: On Synthroid. Check TSH #Depression: On venlafaxine DVT prophylaxis: Already on Xarelto CODE STATUS: Full code * Charges/Coding Visit Charges Inpatient E&M: 27784 Subs Hosp L2
--- NOTE | 2024-11-15 13:38 | ECHOLC_ITS ---
Reason For Study : ARRYTHMIA Procedure This was a limited 2D transthoracic echocardiogram. The study was technically difficult. Contrast injection was performed. Exam performed portable in patient room. Left Ventricle Normal LV size. The left ventricular ejection fraction is 60 %. No regional wall motion abnormalities noted. Right Ventricle Normal RV size. ICD or pacer leads identified within the right ventricle. Normal systolic function. Atria The left atrium is moderately enlarged. The right atrium is moderately enlarged. Mitral Valve Normal mitral valve. Tricuspid Valve Normal tricuspid valve. Pericardium/Pleural No pericardial effusion. Medication Diluted definity 1ml given slow IV push to enhance endocardial definition. MMode/2D Measurements & Calculations LAV(MOD-sp4): 112.0 ml LVAd ap4: 37.1 cm2 SV(MOD-sp4): 29.7 ml LVLd ap4: 7.9 cm SI(MOD-sp4): 12.8 ml/m2 EDV(MOD-sp4): 142.1 ml EDV(sp4-el): 147.2 ml LVAs ap4: 31.0 cm2 LVLs ap4: 7.2 cm ESV(MOD-sp4): 112.4 ml ESV(sp4-el): 112.8 ml EF(MOD-sp4): 20.9 % EF(sp4-el): 23.4 % SV(sp4-el): 34.4 ml LA A4 area: 30.0 cm2 RA A4 area: 25.4 cm2 ECHO/Echo Limited w/Contrast Interpretation Summary The left ventricular ejection fraction is 60 %. Normal LV size. The left atrium is moderately enlarged. The right atrium is moderately enlarged. ICD or pacer leads identified within the right ventricle. Contrast injection was performed. The study was technically limited. Ordering Physician: Johny Barclay Referring Physician: Raffaele Olguin MD Performed By: Ernestine Duvall RCS
[2024-11-15 13:43] LABS: International Normalized Ratio 1.6; Prothrombin Time (Protime)PT. 19.8 SECONDS (11.7-14.9)
[2024-11-15 16:59] LABS: Bedside Glucose 192 mg/dL (74-106)
[2024-11-15] MEDS: Atorvastatin Calcium 40 MG Tablet PO (20:21)
[2024-11-15 20:49] LABS: Bedside Glucose 194 mg/dL (74-106)
[2024-11-16] VITALS (33 sets, daily range): BP systolic 73–154; BP diastolic 53–88; PULSE 69–82; RESP 13–20; TEMP 36.6–37.1; O2SAT 90–97
[2024-11-16] MEDS: Amiodarone 360 MG in Dextrose 5% Viaflo Bag 192.8 ML 16.7 MG CONT INF ×2 (01:18→15:52)
[2024-11-16] MEDS: Levothyroxine 175 MCG Tablet PO (04:13)
[2024-11-16 06:05] LABS: Absolute Lymphocyte Count 1.42 X10^3/uL (0.83-4.51); Absolute Neutrophil Count 2.5 X10^3/uL (2.0-7.7); Basophil# 0.02 X10^3/uL; Basophil% 0.4 % (0-1); Eosinophil# 0.13 X10^3/uL; Eosinophils% 2.8 % (0-5); Hematocrit 33.1 % (40-54); Hemoglobin 11.1 g/dL (13.0-16.5); Lymphocyte # 1.42 X10^3/ul (0.83-4.51); Lymphocyte % 30.8 % (19-41); Mean Corp Hgb Conc 33.5 g/dL (32-36); Mean Corpuscular Hgb 29.4 pg (27.0-32.0); Mean Corpuscular Volume 87.8 fL (80-94); Monocyte# 0.56 X10^3/uL; Monocyte% 12.1 % (0-10); NRBC Flagged by Analyzer 0 % (0-5); Neutrophil # 2.46 X10^3/uL (2.7-7.7); Neutrophil % 53.5 % (47-70); POSITIVE COUNT YES; RBC Distribution Width CV 13.9 % (11.6-14.6); RBC Distribution Width SD 44.7 fl (35.1-43.9); Red Blood Count 3.77 M/mm3 (4.6-6.2); White Blood Count 4.6 K/mm3 (4.4-11.0)
[2024-11-16 06:12] LABS: International Normalized Ratio 1.4; Prothrombin Time (Protime)PT. 17.2 SECONDS (11.7-14.9)
[2024-11-16 06:13] LABS: Partial Thromboplast Time 37.8 Seconds (24.1-36.2)
[2024-11-16 06:50] LABS: Anion Gap 13 (5-15); BUN 23 mg/dL (4-19); BUN/Creat Ratio 25.8 RATIO (10-20); Carbon Dioxide 22.7 mmol/L (21.0-32.0); Chloride 101 mmol/L (98-108); Creatinine, Serum 0.89 mg/dL (0.70-1.20); EST Glomerular Filtration Rate 89 (>60); Estimated Creatinine Clearance 86.69 ml/min (50-250); Glucose 201 mg/dL (70-99); Potassium 3.4 mmol/L (3.3-5.1); Sodium Level 137 mmol/L (133-145)
[2024-11-16 06:52] LABS: Differential Comment SCANNED; Differential Indicated SCAN CRITERIA MET; Platelet Estimate ADEQUATE (ADEQ)
--- NOTE | 2024-11-16 07:01 | PN.CARD_ITS ---
Subjective Subjective Patient seen and evaluated. Patient had presented for defibrillator discharge. Doing well at this time. Objective Data Vital Signs: Vital Signs Temp Pulse Resp BP Pulse Ox O2 Del Method 98.7 F 72 18 131/75 H 94 Room Air 11/16/24 03:00 11/16/24 06:00 11/16/24 06:00 11/16/24 06:00 11/16/24 06:00 11/16/24 03:00 Oxygen Delivery Method Room Air Weight: 222 lb 8 oz Body Mass Index (BMI) 27.1 Intake & Output: Intake and Output for Last 24 Hours 11/14/24 11/15/24 11/16/24 23:59 23:59 23:59 Intake Total 303.00 / 303.00 840.84 / 857.54 116.90 / 116.90 Output Total 675 / 675 300 / 300 Balance 303.00 / 303.00 165.84 / 182.54 -183.10 / -183.10 Lab / Micro Data 11/16/24 04:20 11/16/24 04:20 Labs: Laboratory Results - last 24 hr 11/15/24 08:04: POC Glucose 198 H 11/15/24 11:07: POC Glucose 239 H 11/15/24 13:25: PT 19.8 H, INR 1.6 11/15/24 16:42: POC Glucose 192 H 11/15/24 20:19: POC Glucose 194 H 11/16/24 04:20: WBC 4.6, RBC 3.77 L, Hgb 11.1 L, Hct 33.1 L, MCV 87.8, MCH 29.4, MCHC 33.5, RDW Std Deviation 44.7 H, RDW Coeff of Marifer 13.9, Plt Count TNP, MPV TNP, Immature Gran % (Auto) 0.400, Neut % (Auto) 53.5, Lymph % (Auto) 30.8, [place] % (Auto) 12.1 H, Eos % (Auto) 2.8, Baso % (Auto) 0.4, Absolute Neuts (auto) 2.5, Absolute Lymphs (auto) 1.42, Nucleated RBC % 0, Differential Comment SCANNED, Platelet Estimate ADEQUATE, PT 17.2 H, INR 1.4, APTT 37.8 H, Sodium 137, Potassium 3.4, Chloride 101, Carbon Dioxide 22.7, Anion Gap 13, BUN 23 H, Creatinine 0.89, Estim Creat Clear Calc 86.69, Est GFR (MDRD) Non-Af 89, B UN/Creatinine Ratio 25.8 H, Glucose 201 H, Calcium 9.0 Rhythm Strip Rhythm Strip: Paced Rate: 96 Ectopy: None Cardiology Labs/Tests 11/15/24 13:25: PT 19.8 H, INR 1.6 11/16/24 04:20: WBC 4.6, RBC 3.77 L, Hgb 11.1 L, Hct 33.1 L, MCV 87.8, MCH 29.4, MCHC 33.5, Plt Count TNP, MPV TNP, Immature Gran % (Auto) 0.400, Neut % (Auto) 53.5, Lymph % (Auto) 30.8, [place] % (Auto) 12.1 H, Eos % (Auto) 2.8, Baso % (Auto) 0.4, Absolute Neuts (auto) 2.5, Nucleated RBC % 0, PT 17.2 H, INR 1.4, APTT 37.8 H, Sodium 137, Potassium 3.4, Chloride 101, Carbon Dioxide 22.7, Anion Gap 13, B UN 23 H, Creatinine 0.89, Est GFR (MDRD) Non-Af 89, BUN/Creatinine Ratio 25.8 H, Glucose 201 H, Calcium 9.0 Rhythm: EKG: ECHO: Stress Test: Cardiac Cath: PCI: CT Surgery: Holter monitor: EPS: PPM: CXR: Chest CT Scan: Physical Exam Const alert, oriented x3 and no apparent distress General Appearance: cooperative HEENT hearing grossly normal bilaterally Head and Scalp: atraumatic Eyes EOMs intact bilaterally Neck General: normal visual inspection Chest inspection of chest normal and palpation of chest normal Resp normal respiratory effort Auscultation: clear to auscultation bilaterally Cardio regular rate, regular rhythm, S1 normal heart sound and S2 normal heart sound Jugular Venous Distention: JVD GI normal to inspection, nondistended, normoactive bowel sounds Extremity normal capillary refill and no pedal edema Peripheral Pulses: Yes pulses 2+ throughout and femoral pulses present Skin no rashes or lesions noted Neuro oriented x3 and CN's II-XII intact bilaterally Psych Appearance: grossly normal and appropriate Assessment & Plan Assessment/Plan (1) V tach: PLAN: Patient presented with multiple appropriate ICD discharges. Currently on intravenous amiodarone. Will need to exclude ischemic coronary disease. Patient underwent PCI in June 2024. Due to being on Xarelto will evaluate this in a.m. * Echocardiogram will be performed to assess ventricular function. * Has not had any VT since admission we will switch to p.o. amiodarone (2) Atrial fibrillation: PLAN: Currently in atrial fibrillation with ventricular pacing. Will continue beta-anthony and amiodarone Hold Xarelto pending cath (3) Single implantable cardioverter-defibrillator (ICD) in situ: PLAN: Single ICD implantation. Appropriate discharge for VT noted. (4) Coronary artery disease: PLAN: Patient with known history of coronary artery disease status post PCI of the right coronary artery. Will reassess coronary anatomy. Depending on the findings further recommendations made. Will continue with secondary risk factor modification.
[2024-11-16] MEDS: HEPARIN/D5w 25,000 UNITS 25,000 UNITS/250 ML IV.SOLN. 10 UNITS CONT INF (08:19)
[2024-11-16] MEDS: Venlafaxine XR 75 MG Capsule PO (08:28)
[2024-11-16] MEDS: Cholecalciferol (VIT D3) 25 MCG TABLET (1,000 UNITS) PO (08:28)
[2024-11-16] MEDS: hydrOXYzine PAM 25 MG Capsule 50 MG PO ×2 (08:28→21:45)
[2024-11-16] MEDS: Clopidogrel Bisulfate 75 MG Tablet PO (08:28)
[2024-11-16] MEDS: busPIRone 15 MG TABLET 7.5 MG PO ×2 (08:28→22:00)
[2024-11-16] MEDS: Furosemide 40 MG Tablet PO (08:28)
[2024-11-16] MEDS: Metoprolol(XL)Succ 25 MG Tablet PO (08:31)
[2024-11-16] MEDS: 0.9% Saline Lock 10 ML Syringe IV (08:36)
[2024-11-16 08:46] LABS: Bedside Glucose 214 mg/dL (74-106)
--- NOTE | 2024-11-16 08:57 | PN.HOSP_ITS ---
Reason for Visit Reason for Visit: Diagnoses Atherosclerotic heart disease of [place] coronary artery without angina pectoris (11/14/24) Ventricular tachycardia, unspecified (11/14/24) Unspecified atrial fibrillation (11/14/24) Presence of automatic (implantable) cardiac defibrillator (11/14/24) Objective Data Objective Data Vital Signs: Vital Signs Temp Pulse Resp BP Pulse Ox O2 Del Method 98.1 F 73 18 104/63 94 Room Air 11/16/24 08:07 11/16/24 08:31 11/16/24 06:00 11/16/24 08:31 11/16/24 06:00 11/16/24 03:00 Oxygen Delivery Method Room Air Weight: 222 lb 8 oz Body Mass Index (BMI) 27.1 Intake & Output: Intake and Output for Last 24 Hours 11/14/24 11/15/24 11/16/24 23:59 23:59 23:59 Intake Total 303.00 / 303.00 840.84 / 857.54 116.90 / 116.90 Output Total 675 / 675 300 / 300 Balance 303.00 / 303.00 165.84 / 182.54 -183.10 / -183.10 Lab / Micro Data 11/16/24 04:20 11/16/24 04:20 Labs: Laboratory Results - last 24 hr 11/15/24 11:07: POC Glucose 239 H 11/15/24 13:25: PT 19.8 H, INR 1.6 11/15/24 16:42: POC Glucose 192 H 11/15/24 20:19: POC Glucose 194 H 11/16/24 04:20: WBC 4.6, RBC 3.77 L, Hgb 11.1 L, Hct 33.1 L, MCV 87.8, MCH 29.4, MCHC 33.5, RDW Std Deviation 44.7 H, RDW Coeff of Marifer 13.9, Plt Count TNP, MPV TNP, Immature Gran % (Auto) 0.400, Neut % (Auto) 53.5, Lymph % (Auto) 30.8, [place] % (Auto) 12.1 H, Eos % (Auto) 2.8, Baso % (Auto) 0.4, Absolute Neuts (auto) 2.5, Absolute Lymphs (auto) 1.42, Nucleated RBC % 0, Differential Comment SCANNED, Platelet Estimate ADEQUATE, PT 17.2 H, INR 1.4, APTT 37.8 H, Sodium 137, Potassium 3.4, Chloride 101, Carbon Dioxide 22.7, Anion Gap 13, BUN 23 H, Creatinine 0.89, Estim Creat Clear Calc 86.69, Est GFR (MDRD) Non-Af 89, B UN/Creatinine Ratio 25.8 H, Glucose 201 H, Calcium 9.0 11/16/24 08:26: POC Glucose 214 H Rhythm Strip Rhythm Strip: Paced Rate: 96 Ectopy: None Physical Exam Narrative Seen and examined. nuclear monitoring technician shows paced rhythm. Was admitted with multiple AICD firing/shock. No V. tach since admission. Had 1 PCI in June 2024. Denies chest pain or shortness of breath or syncope. Physical exam General: Alert, Oriented x3, Cooperative HEENT: Moderate hearing loss. Atraumatic, PERRLA, EOMI, Normocephalic. Oral: No Gingival or Mucosal Lesions/ Ulcerations Neck: Supple, No JVD, Negative Carotid Bruits Chest wall/Lungs: Air entry diminished in bilateral lung bases. No crepitation/rhonchi Cardiovascular: Paced rhythm, Normal S1,S2, systolic murmur LLSB. Left upper chest AICD Abdomen: Bowel Sounds Present, Soft, Non Tender, Non-Distended : No dysuria. No renal angle tenderness. No suprapubic tenderness. Extremities: No edema, Capillary Refill Less than 3 Seconds Skin: No rashes, No breakdown Musculoskeletal: No Tenderness to Palpation of Joints or Extremities Neurological: Cranial nerves II-XII grossly intact, DTR 2+/4. No acute focal neurological deficit. Psych/Mental Status: Normal Affect, Appropriate. Assessment & Plan Assessment/Plan (1) V tach: PLAN: Plan #Chest pain in the setting of ICD firing * Admit to PCU. Patient has an ICD in situ and states on the day of admission he went to use the bathroom and got lightheaded when standing up. His ICD started going off and firing * He therefore called the EMS and came into the ED. EMS noticed the patient was in intermittent ventricular tachycardia * Patient has his ICD inserted in June 2024. He does not does not seem to be on any antiarrhythmics. * EKG showed a paced rhythm. * Troponins 28, 77 and 165 * ICD interrogated showed multiple episodes of ventricular tachycardia and ventricular fibrillation. 11/16: Echo shows EF 60% with right and left atrium moderately enlarged. Normal LV size. Plan for heart cath amiodarone drip changed to amiodarone oral 200 mg twice daily #Type 2 diabetes mellitus: * On Lantus 10 units daily. * InsulinSliding scale. Checks ACHS. #Atrial fibrillation: Status post pacemaker. On Xarelto and metoprolol #History of CAD: Status post stents. #Benign essential hypertension: On metoprolol #Heart failure preserved ejection fraction: Not in exacerbation. On p.o. Lasix. #Hyperlipidemia: On statin #Hypothyroidism: On Synthroid. #Depression: On venlafaxine DVT prophylaxis: Already on Xarelto CODE STATUS: Full code Clinical Impression(s) from Imaging Studies Chest X-Ray 11/14/24 10:37 IMPRESSION: No acute process. Bochdalek's hernia. Echocardiogram 11/15/24 13:38 Interpretation Summary The left ventricular ejection fraction is 60 %. Normal LV size. The left atrium is moderately enlarged. The right atrium is moderately enlarged. ICD or pacer leads identified within the right ventricle. Contrast injection was performed. The study was technically limited. Charges/Coding Visit Charges Inpatient E&M: 91123 Subs Hosp L2
[2024-11-16] MEDS: Insulin Lispro 100 UNIT/ML INSULN.PEN 12 UNIT SC (10:03)
[2024-11-16] MEDS: Insulin Lispro 100 UNIT/ML INSULN.PEN SC ×2 (10:03→12:12)
[2024-11-16] MEDS: Insulin Glargine-YFGN 100 UNIT/ML Pen 10 UNIT SC (10:04)
[2024-11-16] MEDS: Lisinopril 5 MG Tablet PO (10:12)
[2024-11-16] MEDS: Amiodarone 200 MG Tablet PO (10:12)
[2024-11-16 11:54] LABS: Bedside Glucose 229 mg/dL (74-106)
[2024-11-16] MEDS: Ascorbic Acid 500 MG Tablet PO (12:17)
[2024-11-16] MEDS: Ferrous Sulfate 325 MG Tablet PO (12:17)
[2024-11-16 16:02] LABS: Partial Thromboplast Time 51.4 Seconds (24.1-36.2)
--- NOTE | 2024-11-16 16:10 | CASEMGMT ---
RN CM Face to Face with patient for initial transition planning/care coordination assessment. RN CM introduced self and role at [facility]. Patient agitated, RN CM called to complete assessment. willing to participate in assessment and is able to answer all questions appropriately. Care providers, pharmacy, and demographics verified. Strata: 4 PCP: Sharif Specialists: Nigel Davis, a p supervisor; Maame, tso Preferred Pharmacy: [facility] Insurance: [facility], [employer] Prescription Benefit: yes Living Will/HPOA: none LNOK: Living Arrangements: Patient lives with in a single story home with ramp to enter. Patient is blind, assists with bathing and showering, patient toilets self. Transportation: DME/HHC: Patient has shower chair, cane, walker, grab bars at home. Patient has been to [facility] in the past. Patient was just recently discharged from [facility]. is unsure of plans at discharge pending course of treatment and patient may require SNF vs HHC at discharge. states he has no further needs or concerns at this time. CM to follow for discharge planning needs that may arise. Disposition Plan: TBD, anticipate HHC vs SNF pending course of treatment. Ann BROWER, RN, CM
[2024-11-16 17:11] LABS: Bedside Glucose 104 mg/dL (74-106)
[2024-11-16] MEDS: Atorvastatin Calcium 40 MG Tablet PO (21:45)
[2024-11-16 22:15] LABS: Bedside Glucose 150 mg/dL (74-106)
[2024-11-17] VITALS (34 sets, daily range): BP systolic 75–130; BP diastolic 50–87; PULSE 70–73; RESP 14–22; TEMP 36.6–36.9; O2SAT 91–98
[2024-11-17 00:06] LABS: Partial Thromboplast Time 72.7 Seconds (24.1-36.2)
[2024-11-17] MEDS: Amiodarone 360 MG in Dextrose 5% Viaflo Bag 192.8 ML 16.7 MG CONT INF ×2 (02:01→13:07)
[2024-11-17 06:14] LABS: Absolute Lymphocyte Count 1.62 X10^3/uL (0.83-4.51); Absolute Neutrophil Count 2.6 X10^3/uL (2.0-7.7); Basophil# 0.02 X10^3/uL; Basophil% 0.4 % (0-1); Eosinophil# 0.16 X10^3/uL; Eosinophils% 3.2 % (0-5); Hematocrit 31.8 % (40-54); Hemoglobin 10.5 g/dL (13.0-16.5); Lymphocyte # 1.62 X10^3/ul (0.83-4.51); Lymphocyte % 32.1 % (19-41); Mean Corpuscular Hgb 29.2 pg (27.0-32.0); Mean Corpuscular Volume 88.3 fL (80-94); Monocyte# 0.59 X10^3/uL; Monocyte% 11.7 % (0-10); NRBC Flagged by Analyzer 0 % (0-5); Neutrophil # 2.63 X10^3/uL (2.7-7.7); Neutrophil % 52.2 % (47-70); POSITIVE COUNT YES; RBC Distribution Width CV 13.9 % (11.6-14.6)
[2024-11-17 06:22] LABS: Partial Thromboplast Time 70.1 Seconds (24.1-36.2)
[2024-11-17 06:50] LABS: Anion Gap 10 (5-15); BUN 22 mg/dL (4-19); BUN/Creat Ratio 22.9 RATIO (10-20); Carbon Dioxide 24.1 mmol/L (21.0-32.0); Chloride 101 mmol/L (98-108); Creatinine, Serum 0.98 mg/dL (0.70-1.20); EST Glomerular Filtration Rate 80 (>60); Estimated Creatinine Clearance 78.73 ml/min (50-250); Glucose 183 mg/dL (70-99); Potassium 3.8 mmol/L (3.3-5.1); Sodium Level 135 mmol/L (133-145)
[2024-11-17 06:51] LABS: Differential Indicated SCAN CRITERIA MET
[2024-11-17 06:52] LABS: Differential Comment SCANNED
[2024-11-17 06:53] LABS: Platelet Estimate ADEQUATE (ADEQ); Platelet Morphology CLUMPED
[2024-11-17 07:29] LABS: Thyroid Stim Hormone (TSH) 0.228 uIU/mL (0.300-4.200)
[2024-11-17] MEDS: Clopidogrel Bisulfate 75 MG Tablet PO (08:07)
[2024-11-17] MEDS: Lisinopril 5 MG Tablet PO (08:07)
[2024-11-17] MEDS: Metoprolol(XL)Succ 25 MG Tablet PO ×2 (08:07→11:57)
[2024-11-17 08:38] LABS: Magnesium 1.8 mg/dL (1.5-2.2)
--- NOTE | 2024-11-17 09:53 | PN.CARD_ITS ---
Subjective Subjective Patient seen and evaluated. Underwent cardiac catheterization today Objective Data Vital Signs: Vital Signs Temp Pulse Resp BP Pulse Ox O2 Del Method 98.4 F 73 18 130/71 H 95 Room Air 11/17/24 08:20 11/17/24 08:07 11/17/24 08:00 11/17/24 08:07 11/17/24 08:00 11/17/24 08:00 Oxygen Delivery Method Room Air Weight: 222 lb 8 oz Body Mass Index (BMI) 27.1 Intake & Output: Intake and Output for Last 24 Hours 11/15/24 11/16/24 11/17/24 23:59 23:59 23:59 Intake Total 840.84 / 857.54 1799.43 / 1816.13 287.73 / 287.73 Output Total 675 / 675 1050 / 1050 300 / 300 Balance 165.84 / 182.54 749.43 / 766.13 -12.27 / -12.27 Lab / Micro Data 11/17/24 06:03 11/17/24 06:03 Labs: Laboratory Results - last 24 hr 11/16/24 11:35: POC Glucose 229 H 11/16/24 14:34: APTT 51.4 H 11/16/24 16:07: POC Glucose 104 11/16/24 21:43: POC Glucose 150 H 11/16/24 23:19: APTT 72.7 H 11/17/24 06:03: WBC 5.0, RBC 3.60 L, Hgb 10.5 L, Hct 31.8 L, MCV 88.3, MCH 29.2, MCHC 33.0, RDW Std Deviation 45.0 H, RDW Coeff of Marifer 13.9, Plt Count TNP, MPV TNP, Immature Gran % (Auto) 0.400, Neut % (Auto) 52.2, Lymph % (Auto) 32.1, [place] % (Auto) 11.7 H, Eos % (Auto) 3.2, Baso % (Auto) 0.4, Absolute Neuts (auto) 2.6, Absolute Lymphs (auto) 1.62, Nucleated RBC % 0, Differential Comment SCANNED, Platelet Estimate ADEQUATE, Plt Morphology Comment CLUMPED, APTT 70.1 H, Sodium 135, Potassium 3.8, Chloride 101, Carbon Dioxide 24.1, Anion Gap 10, BUN 22 H, Creatinine 0.98, Estim Creat Clear Calc 78.73, Est GFR (MDRD) Non-Af 80, B UN/Creatinine Ratio 22.9 H, Glucose 183 H, Calcium 9.0, Magnesium 1.8, TSH 0.228 L Rhythm Strip Rhythm Strip: Paced Rate: 96 Ectopy: None Cardiology Labs/Tests 11/16/24 14:34: APTT 51.4 H 11/16/24 23:19: APTT 72.7 H 11/17/24 06:03: WBC 5.0, RBC 3.60 L, Hgb 10.5 L, Hct 31.8 L, MCV 88.3, MCH 29.2, MCHC 33.0, Plt Count TNP, MPV TNP, Immature Gran % (Auto) 0.400, Neut % (Auto) 52.2, Lymph % (Auto) 32.1, [place] % (Auto) 11.7 H, Eos % (Auto) 3.2, Baso % (Auto) 0.4, Absolute Neuts (auto) 2.6, Nucleated RBC % 0, APTT 70.1 H, Sodium 135, Potassium 3.8, Chloride 101, Carbon Dioxide 24.1, Anion Gap 10, BUN 22 H, Creatinine 0.98, Est GFR (MDRD) Non-Af 80, BUN/Creatinine Ratio 22.9 H, Glucose 183 H, Calcium 9.0, Magnesium 1.8 Rhythm: EKG: ECHO: Stress Test: Cardiac Cath: PCI: CT Surgery: Holter monitor: EPS: PPM: CXR: Chest CT Scan: Radiography Diagnostic Testing: Radiology Impression Echocardiogram 11/15/24 13:38 Interpretation Summary The left ventricular ejection fraction is 60 %. Normal LV size. The left atrium is moderately enlarged. The right atrium is moderately enlarged. ICD or pacer leads identified within the right ventricle. Contrast injection was performed. The study was technically limited. Ordering Physician: Johny Barclay Referring Physician: Raffaele Olguin MD Performed By: Ernestine Duvall RCS Physical Exam Const alert, oriented x3 and no apparent distress General Appearance: cooperative HEENT hearing grossly normal bilaterally Head and Scalp: atraumatic Eyes EOMs intact bilaterally Neck General: normal visual inspection Chest inspection of chest normal and palpation of chest normal Resp normal respiratory effort Auscultation: clear to auscultation bilaterally Cardio regular rate, regular rhythm, S1 normal heart sound and S2 normal heart sound Jugular Venous Distention: JVD GI normal to inspection, nondistended, normoactive bowel sounds Extremity normal capillary refill and no pedal edema Peripheral Pulses: Yes pulses 2+ throughout and femoral pulses present Skin no rashes or lesions noted Neuro oriented x3 and CN's II-XII intact bilaterally Psych Appearance: grossly normal and appropriate Assessment & Plan Assessment/Plan (1) V tach: PLAN: Patient presented with multiple appropriate ICD discharges. Currently on intravenous amiodarone. Cardiac catheterization demonstrated patency of all 3 coronary arteries and preserved ejection fraction. Will plan on continuing IV amiodarone and then switching over to p.o. amiodarone. (2) Atrial fibrillation: PLAN: Currently in atrial fibrillation with ventricular pacing. Will continue beta-anthony and amiodarone Will resume Xarelto tomorrow. (3) Single implantable cardioverter-defibrillator (ICD) in situ: PLAN: Single ICD implantation. Appropriate discharge for VT noted. (4) Coronary artery disease: PLAN: Patient with known history of coronary artery disease status post PCI of the right coronary artery. Cardiac catheterization demonstrated patency of the above. Preserved ejection fraction noted. No need for intervention at this time.
[2024-11-17] MEDS: Ferrous Sulfate 325 MG Tablet PO (11:46)
[2024-11-17] MEDS: Ascorbic Acid 500 MG Tablet PO (11:46)
[2024-11-17] MEDS: Furosemide 40 MG Tablet PO (11:46)
[2024-11-17] MEDS: Insulin Lispro 100 UNIT/ML INSULN.PEN SC ×3 (11:46→22:33)
[2024-11-17] MEDS: Venlafaxine XR 75 MG Capsule PO (11:46)
[2024-11-17] MEDS: busPIRone 5 MG Tablet 10 MG PO ×2 (11:56→21:16)
--- NOTE | 2024-11-17 12:05 | CASEMGMT ---
MG ANDERSON NOTE: Pt ambulated 100 ft yesterday w/therapy, min assist, w/use of walker. MG CM to room. Pt resting in bed, on bedrest post heart cath. @ bedside. Discussed discharge planning. Pt wishes to discharge home. He is not sure if he wants HHC again or not, stating he is not sure if it will be necessary. Pt made aware therapy will continue to work w/him and if he wishes to have HHC again this can be set up for him. Luis BELLO CM
[2024-11-17 12:41] LABS: Bedside Glucose 201 mg/dL (74-106)
--- NOTE | 2024-11-17 13:26 | PN.HOSP_ITS ---
Reason for Visit Reason for Visit: Diagnoses Atherosclerotic heart disease of [place] coronary artery without angina pectoris (11/14/24) Ventricular tachycardia, unspecified (11/14/24) Unspecified atrial fibrillation (11/14/24) Presence of automatic (implantable) cardiac defibrillator (11/14/24) Objective Data Objective Data Vital Signs: Vital Signs Temp Pulse Resp BP Pulse Ox O2 Del Method 98.4 F 70 22 H 107/71 92 Room Air 11/17/24 08:20 11/17/24 13:07 11/17/24 12:00 11/17/24 13:01 11/17/24 13:01 11/17/24 12:30 Oxygen Delivery Method Room Air Weight: 222 lb 8 oz Body Mass Index (BMI) 27.1 Intake & Output: Intake and Output for Last 24 Hours 11/15/24 11/16/24 11/17/24 23:59 23:59 23:59 Intake Total 840.84 / 857.54 1799.43 / 1816.13 773.21 / 773.21 Output Total 675 / 675 1050 / 1050 500 / 500 Balance 165.84 / 182.54 749.43 / 766.13 273.21 / 273.21 Lab / Micro Data 11/17/24 06:03 11/17/24 06:03 Labs: Laboratory Results - last 24 hr 11/16/24 14:34: APTT 51.4 H 11/16/24 16:07: POC Glucose 104 11/16/24 21:43: POC Glucose 150 H 11/16/24 23:19: APTT 72.7 H 11/17/24 06:03: WBC 5.0, RBC 3.60 L, Hgb 10.5 L, Hct 31.8 L, MCV 88.3, MCH 29.2, MCHC 33.0, RDW Std Deviation 45.0 H, RDW Coeff of Marifer 13.9, Plt Count TNP, MPV TNP, Immature Gran % (Auto) 0.400, Neut % (Auto) 52.2, Lymph % (Auto) 32.1, [place] % (Auto) 11.7 H, Eos % (Auto) 3.2, Baso % (Auto) 0.4, Absolute Neuts (auto) 2.6, Absolute Lymphs (auto) 1.62, Nucleated RBC % 0, Differential Comment SCANNED, Platelet Estimate ADEQUATE, Plt Morphology Comment CLUMPED, APTT 70.1 H, Sodium 135, Potassium 3.8, Chloride 101, Carbon Dioxide 24.1, Anion Gap 10, BUN 22 H, Creatinine 0.98, Estim Creat Clear Calc 78.73, Est GFR (MDRD) Non-Af 80, B UN/Creatinine Ratio 22.9 H, Glucose 183 H, Calcium 9.0, Magnesium 1.8, TSH 0.228 L 11/17/24 11:42: POC Glucose 201 H Radiography Diagnostic Testing: Radiology Impression Echocardiogram 11/15/24 13:38 Interpretation Summary The left ventricular ejection fraction is 60 %. Normal LV size. The left atrium is moderately enlarged. The right atrium is moderately enlarged. ICD or pacer leads identified within the right ventricle. Contrast injection was performed. The study was technically limited. Ordering Physician: Johny Barclay Referring Physician: Raffaele Olguin MD Performed By: Ernestine Duvall RCS Rhythm Strip Rhythm Strip: Paced Rate: 96 Ectopy: None Physical Exam Narrative Seen and examined. bag mender shows paced rhythm. bag mender showed long run of wide- complex tachycardia yesterday but seems more paced rhythm/LBBB morphology. Was admitted with multiple AICD firing/shock. Had 1 PCI in June 2024. Denies chest pain or shortness of breath or syncope. Physical exam General: Alert, Oriented x3, Cooperative HEENT: Moderate hearing loss. Atraumatic, PERRLA, EOMI, Normocephalic. Oral: No Gingival or Mucosal Lesions/ Ulcerations Neck: Supple, No JVD, Negative Carotid Bruits Chest wall/Lungs: Air entry diminished in bilateral lung bases. No crepitation/rhonchi Cardiovascular: Paced rhythm, Normal S1,S2, systolic murmur LLSB. Left upper chest AICD Abdomen: Bowel Sounds Present, Soft, Non Tender, Non-Distended : No dysuria. No renal angle tenderness. No suprapubic tenderness. Extremities: No edema, Capillary Refill Less than 3 Seconds Skin: No rashes, No breakdown Musculoskeletal: No Tenderness to Palpation of Joints or Extremities Neurological: Cranial nerves II-XII grossly intact, DTR 2+/4. No acute focal neurological deficit. Psych/Mental Status: Normal Affect, Appropriate. Assessment & Plan Assessment/Plan (1) V tach: PLAN: Plan #Chest pain in the setting of ICD firing * Admit to PCU. Patient has an ICD in situ and states on the day of admission he went to use the bathroom and got lightheaded when standing up. His ICD started going off and firing * He therefore called the EMS and came into the ED. EMS noticed the patient was in intermittent ventricular tachycardia * Patient has his ICD inserted in June 2024. He does not does not seem to be on any antiarrhythmics. * EKG showed a paced rhythm. * Troponins 28, 77 and 165 * ICD interrogated showed multiple episodes of ventricular tachycardia and ventricular fibrillation. 11/16: Echo shows EF 60% with right and left atrium moderately enlarged. Normal LV size. Plan for heart cath amiodarone drip changed to amiodarone oral 200 mg twice daily 11/17: Patient had cardiac catheter today. Patient currently in A-fib with ventricular pacing. AICD interrogation was reviewed. Plan for changing IV amiodarone to oral route. Resume Xarelto tomorrow. Serum potassium 3.8. Magnesium 1.8. TSH low, free T4 ordered. Cardiac cath was negative for significant obstructive CAD #Type 2 diabetes mellitus: * On Lantus 10 units daily. * InsulinSliding scale. Checks ACHS. #Atrial fibrillation: Status post pacemaker. On Xarelto and metoprolol #History of CAD: Status post stents. #Benign essential hypertension: On metoprolol #Heart failure preserved ejection fraction: Not in exacerbation. On p.o. Lasix. #Hyperlipidemia: On statin #Hypothyroidism: On Synthroid. #Depression: On venlafaxine DVT prophylaxis: Already on Xarelto CODE STATUS: Full code Laboratory Results 11/16/24 14:34: APTT 51.4 H 11/16/24 16:07: POC Glucose 104 11/16/24 21:43: POC Glucose 150 H 11/16/24 23:19: APTT 72.7 H 11/17/24 06:03: WBC 5.0, RBC 3.60 L, Hgb 10.5 L, Hct 31.8 L, MCV 88.3, MCH 29.2, MCHC 33.0, RDW Std Deviation 45.0 H, RDW Coeff of Marifer 13.9, Plt Count TNP, MPV TNP, Immature Gran % (Auto) 0.400, Neut % (Auto) 52.2, Lymph % (Auto) 32.1, [place] % (Auto) 11.7 H, Eos % (Auto) 3.2, Baso % (Auto) 0.4, Absolute Neuts (auto) 2.6, Absolute Lymphs (auto) 1.62, Nucleated RBC % 0, Differential Comment SCANNED, Platelet Estimate ADEQUATE, Plt Morphology Comment CLUMPED, APTT 70.1 H, Sodium 135, Potassium 3.8, Chloride 101, Carbon Dioxide 24.1, Anion Gap 10, BUN 22 H, Creatinine 0.98, Estim Creat Clear Calc 78.73, Est GFR (MDRD) Non-Af 80, B UN/Creatinine Ratio 22.9 H, Glucose 183 H, Calcium 9.0, Magnesium 1.8, TSH 0.228 L 11/17/24 11:42: POC Glucose 201 H Clinical Impression(s) from Imaging Studies Chest X-Ray 11/14/24 10:37 IMPRESSION: No acute process. Bochdalek's hernia. Echocardiogram 11/15/24 13:38 Interpretation Summary The left ventricular ejection fraction is 60 %. Normal LV size. The left atrium is moderately enlarged. The right atrium is moderately enlarged. ICD or pacer leads identified within the right ventricle. Contrast injection was performed. The study was technically limited. Charges/Coding Visit Charges Inpatient E&M: 09063 Subs Hosp L2
[2024-11-17 16:31] LABS: Bedside Glucose 351 mg/dL (74-106)
[2024-11-17] MEDS: Rivaroxaban 20 MG Tablet PO (17:31)
[2024-11-17] MEDS: Insulin Lispro 100 UNIT/ML INSULN.PEN 17 UNIT SC (17:32)
[2024-11-17] MEDS: 0.9% Normal Saline (500mL Bag) 500 ML 999 ML IV (20:00)
[2024-11-17] MEDS: Atorvastatin Calcium 40 MG Tablet PO (21:17)
[2024-11-17] MEDS: Magnesium Chloride 64 MG Delay Rel.Tablet 128 MG PO (21:17)
[2024-11-17 23:03] LABS: Bedside Glucose 180 mg/dL (74-106)
[2024-11-18] VITALS (9 sets, daily range): BP systolic 92–121; BP diastolic 62–84; PULSE 70–78; RESP 19–23; TEMP 36.7; O2SAT 94–99
[2024-11-18] MEDS: 0.9% Saline Lock 10 ML Syringe IV (01:12)
[2024-11-18] MEDS: Levothyroxine 175 MCG Tablet PO (06:28)
[2024-11-18] MEDS: busPIRone 5 MG Tablet 10 MG PO (06:28)
[2024-11-18 06:34] LABS: Absolute Lymphocyte Count 1.45 X10^3/uL (0.83-4.51); Absolute Neutrophil Count 4.4 X10^3/uL (2.0-7.7); Basophil# 0.02 X10^3/uL; Basophil% 0.3 % (0-1); Eosinophil# 0.14 X10^3/uL; Eosinophils% 2.1 % (0-5); Hematocrit 34.5 % (40-54); Hemoglobin 11.6 g/dL (13.0-16.5); Lymphocyte # 1.45 X10^3/ul (0.83-4.51); Mean Corp Hgb Conc 33.6 g/dL (32-36); Mean Corpuscular Hgb 29.7 pg (27.0-32.0); Mean Corpuscular Volume 88.2 fL (80-94); Monocyte# 0.56 X10^3/uL; Monocyte% 8.5 % (0-10); NRBC Flagged by Analyzer 0 % (0-5); Neutrophil # 4.39 X10^3/uL (2.7-7.7); Neutrophil % 66.6 % (47-70); POSITIVE COUNT YES; RBC Distribution Width CV 13.8 % (11.6-14.6); RBC Distribution Width SD 44.7 fl (35.1-43.9); Red Blood Count 3.91 M/mm3 (4.6-6.2); White Blood Count 6.6 K/mm3 (4.4-11.0)
[2024-11-18 06:49] LABS: Anion Gap 11 (5-15); BUN 26 mg/dL (4-19); BUN/Creat Ratio 27.2 RATIO (10-20); Calcium,Total 9.2 mg/dL (7.6-11.0); Carbon Dioxide 22.1 mmol/L (21.0-32.0); Chloride 102 mmol/L (98-108); Creatinine, Serum 0.95 mg/dL (0.70-1.20); EST Glomerular Filtration Rate 83 (>60); Estimated Creatinine Clearance 81.22 ml/min (50-250); Glucose 184 mg/dL (70-99); Potassium 3.9 mmol/L (3.3-5.1); Sodium Level 134 mmol/L (133-145)
[2024-11-18 07:03] LABS: International Normalized Ratio 1.7
[2024-11-18 07:04] LABS: Partial Thromboplast Time 39.8 Seconds (24.1-36.2)
[2024-11-18 07:19] LABS: Differential Indicated SCAN CRITERIA MET
[2024-11-18 07:21] LABS: Platelet Estimate ADEQUATE (ADEQ)
--- NOTE | 2024-11-18 07:34 | PCM.PN.CARD ---
Subjective Subjective Patient seen and evaluated. Doing much better this morning no complaints. Objective Data Vital Signs: Vital Signs Temp Pulse Resp BP Pulse Ox O2 Del Method 98.1 F 78 20 H 110/66 96 Room Air 11/18/24 06:00 11/18/24 06:00 11/18/24 06:00 11/18/24 06:00 11/18/24 06:00 11/18/24 06:00 Oxygen Delivery Method Room Air Weight: 222 lb 8 oz Body Mass Index (BMI) 27.1 Intake & Output: Intake and Output for Last 24 Hours 11/16/24 11/17/24 11/18/24 23:59 23:59 23:59 Intake Total 1799.43 / 1816.13 1429.91 / 1546.61 233.4 / 233.4 Output Total 1050 / 1050 700 / 1000 800 / 800 Balance 749.43 / 766.13 729.91 / 546.61 -566.6 / -566.6 Lab / Micro Data 11/18/24 05:59 11/18/24 05:59 Labs: Laboratory Results - last 24 hr 11/17/24 06:03: Magnesium 1.8, Free T4 1.50 H 11/17/24 11:42: POC Glucose 201 H 11/17/24 16:07: POC Glucose 351 H 11/17/24 22:30: POC Glucose 180 H 11/18/24 05:59: WBC 6.6, RBC 3.91 L, Hgb 11.6 L, Hct 34.5 L, MCV 88.2, MCH 29.7, MCHC 33.6, RDW Std Deviation 44.7 H, RDW Coeff of Marifer 13.8, Plt Count TNP, Immature Gran % (Auto) 0.500, Neut % (Auto) 66.6, Lymph % (Auto) 22.0, [place] % (Auto) 8.5, Eos % (Auto) 2.1, Baso % (Auto) 0.3, Absolute Neuts (auto) 4.4, Absolute Lymphs (auto) 1.45, Nucleated RBC % 0, Platelet Estimate ADEQUATE, PT 20.0 H, INR 1.7, APTT 39.8 H, Sodium 134, Potassium 3.9, Chloride 102, Carbon Dioxide 22.1, Anion Gap 11, BUN 26 H, Creatinine 0.95, Estim Creat Clear Calc 81.22, Est GFR (MDRD) Non-Af 83, BUN/Creatinine Ratio 27.2 H, Glucose 184 H, Calcium 9.2 Rhythm Strip Rhythm Strip: Paced Rate: 96 Ectopy: None Cardiology Labs/Tests 11/17/24 06:03: Magnesium 1.8 11/18/24 05:59: WBC 6.6, RBC 3.91 L, Hgb 11.6 L, Hct 34.5 L, MCV 88.2, MCH 29.7, MCHC 33.6, Plt Count TNP, Immature Gran % (Auto) 0.500, Neut % (Auto) 66.6, Lymph % (Auto) 22.0, [place] % (Auto) 8.5, Eos % (Auto) 2.1, Baso % (Auto) 0.3, Absolute Neuts (auto) 4.4, Nucleated RBC % 0, PT 20.0 H, INR 1.7, APTT 39.8 H, Sodium 134, Potassium 3.9, Chloride 102, Carbon Dioxide 22.1, Anion Gap 11, BUN 26 H, Creatinine 0.95, Est GFR (MDRD) Non-Af 83, BUN/Creatinine Ratio 27.2 H, Glucose 184 H, Calcium 9.2 Rhythm: EKG: ECHO: Stress Test: Cardiac Cath: PCI: CT Surgery: Holter monitor: EPS: PPM: CXR: Chest CT Scan: Physical Exam Const alert, oriented x3 and no apparent distress General Appearance: cooperative HEENT hearing grossly normal bilaterally Head and Scalp: atraumatic Eyes EOMs intact bilaterally Neck General: normal visual inspection Chest inspection of chest normal and palpation of chest normal Resp normal respiratory effort Auscultation: clear to auscultation bilaterally Cardio regular rate, regular rhythm, S1 normal heart sound and S2 normal heart sound Jugular Venous Distention: JVD GI normal to inspection, nondistended, normoactive bowel sounds Extremity normal capillary refill and no pedal edema Peripheral Pulses: Yes pulses 2+ throughout and femoral pulses present Skin no rashes or lesions noted Neuro oriented x3 and CN's II-XII intact bilaterally Psych Appearance: grossly normal and appropriate Assessment & Plan Assessment/Plan (1) V tach: PLAN: Patient presented with multiple appropriate ICD discharges. Currently on intravenous amiodarone. Cardiac catheterization demonstrated patency of all 3 coronary arteries and preserved ejection fraction. Will plan on continuing p.o. amiodarone as well as the beta-anthony. (2) Atrial fibrillation: PLAN: Currently in atrial fibrillation with ventricular pacing. Will continue beta-anthony and amiodarone Will resume Xarelto (3) Single implantable cardioverter-defibrillator (ICD) in situ: PLAN: Single ICD implantation. Appropriate discharge for VT noted. (4) Coronary artery disease: PLAN: Patient with known history of coronary artery disease status post PCI of the right coronary artery. Cardiac catheterization demonstrated patency of the above. Preserved ejection fraction noted. No need for intervention at this time.
[2024-11-18] MEDS: Lisinopril 5 MG Tablet PO (08:23)
[2024-11-18] MEDS: Metoprolol(XL)Succ 50 MG Tablet PO (08:23)
[2024-11-18] MEDS: Venlafaxine XR 75 MG Capsule PO (08:23)
[2024-11-18] MEDS: Furosemide 40 MG Tablet PO (08:23)
[2024-11-18] MEDS: Magnesium Chloride 64 MG Delay Rel.Tablet 128 MG PO (08:24)
[2024-11-18] MEDS: Cholecalciferol (VIT D3) 25 MCG TABLET (1,000 UNITS) PO (08:24)
[2024-11-18] MEDS: Clopidogrel Bisulfate 75 MG Tablet PO (08:24)
--- NOTE | 2024-11-18 09:20 | DCINST_ITS ---
Discharge Instructions DC O2, CPAP, BIPAP needs Home O2 Discharge instructions: No Follow Up Care Test Results: Test results from this visit will be discussed in further detail at your follow- up appointment, if applicable. Discharge Plan Admission Admit Date/Time: 11/14/24 12:55 Primary Reason for Your Visit: AICD firing Attending Provider: Osmar Brown Primary Care Provider: Raffaele Olguin Consulting Providers: Judson Isabel; Erin Morris Instructions Additional Instructions / Restrictions: Hydroxyzine discontinued because of severe QT prolongation interaction with amiodarone Discharge Orders/Prescriptions Prescriptions: New magnesium chloride [Mag 64] 64 mg Tablet,Delayed Release (Dr/Ec) 128 mg PO DAILY 30 Days Qty: 60 2RF metoprolol succinate 50 mg Tablet Extended Release 24 Hr 50 mg PO DAILY 30 Days Qty: 30 3RF amiodarone 200 mg tablet 200 mg PO BID 30 Days Qty: 60 2RF Continued metformin 500 mg tablet extended release 24 hr 1,000 mg PO DAILY (DME) PEP device See Rx Instructions .Route .MEDSUPPLY Qty: 1 0RF Rx Instructions: with training venlafaxine 75 mg capsule,extended release 24hr 75 mg PO DAILY levothyroxine 175 mcg tablet 175 mcg PO DAILY buspirone 7.5 mg tablet 7.5 mg PO BID lisinopril 5 mg tablet 5 mg PO DAILY acetaminophen 500 mg tablet 1,000 mg PO Q8H PRN (Reason: pain) (DME) True Metrix Glucose Test Strip Strip See Rx Instructions .ROUTE QDAY Qty: 10 Rx Instructions: As directed ferrous sulfate 325 mg (65 mg iron) Tablet 325 mg PO DAILY atorvastatin 40 mg tablet 40 mg PO QHS clopidogrel 75 mg tablet 75 mg PO DAILY rivaroxaban 20 mg tablet 20 mg PO DAILY Rx Instructions: must administer with evening meal furosemide [Lasix] 40 mg tablet 40 mg PO DAILY Qty: 60 0RF ascorbic acid (vitamin C) 500 mg tablet 500 mg PO DAILY cholecalciferol (vitamin D3) [Vitamin D3] 25 mcg (1,000 unit) tablet 25 mcg PO DAILY acetylcysteine 600 mg capsule 600 mg PO BID Changed insulin lispro [Humalog KwikPen Insulin] 100 unit/mL insulin pen 17 unit SUBCUT BIDAC 30 Days Qty: 0 0RF insulin glargine [Lantus Solostar U-100 Insulin] 100 unit/mL (3 mL) insulin pen 15 unit subcut DAILY 30 Days Qty: 0 0RF Discontinued hydroxyzine pamoate 50 mg capsule 50 mg PO BID metoprolol succinate 25 mg tablet extended release 24 hr 25 mg PO DAILY Referrals / Follow Up: Judson Isabel MD [Med Staff - Active Staff] - Within 1 Month Raffaele Olguin MD [Primary Care Provider] - Disposition Disposition (needs filled in before D/C Order can be placed): Home, Self Care
--- NOTE | 2024-11-18 09:31 | PCM.DC.SUM ---
Providers Date of Admission: 11/14/24 Date of Discharge: 11/18/24 Primary Care Physician: Dr. Raffaele Olguin MD Consultations 11/14/24 13:32 Consult: Cardiology Routine Consulting Provider: Judson Isabel Reason for Consult: v tach, ICD firing EMERGENT Consult: No MD Notified: Yes Date Notified: 11/14/24 Time Notified: 13:19 Method of Notification: Text Reason For Visit: INTERMITTENT V TACH Diagnosis Discharge Diagnosis (1) V tach: Status: Acute Code(s): I47.20 - Ventricular tachycardia, unspecified (2) Atrial fibrillation: Status: Acute Code(s): I48.91 - Unspecified atrial fibrillation (3) Single implantable cardioverter-defibrillator (ICD) in situ: Status: Acute Code(s): Z95.810 - Presence of automatic (implantable) cardiac defibrillator (4) Coronary artery disease: Status: Acute Code(s): I25.10 - Atherosclerotic heart disease of [place] coronary artery without angina pectoris Plan This 74 old gentleman was admitted with multiple AICD firing at home. Denied any chest pain. He was admitted in PCU and started on IV amiodarone drip #Chest pain in the setting of ICD firing Admit to PCU. Patient has an ICD in situ and states on the day of admission he went to use the bathroom and got lightheaded when standing up. His ICD started going off and firing He therefore called the EMS and came into the ED. EMS noticed the patient was in intermittent ventricular tachycardia Patient has his ICD inserted in June 2024. He does not does not seem to be on any antiarrhythmics. EKG showed a paced rhythm. Troponins 28, 77 and 165 ICD interrogated showed multiple episodes of ventricular tachycardia and ventricular fibrillation. 11/16: Echo shows EF 60% with right and left atrium moderately enlarged. Normal LV size. Plan for heart cath amiodarone drip changed to amiodarone oral 200 mg twice daily 11/17: Patient had cardiac catheter today. Patient currently in A-fib with ventricular pacing. AICD interrogation was reviewed. Plan for changing IV amiodarone to oral route. Resume Xarelto tomorrow. Serum potassium 3.8. Magnesium 1.8. TSH low, free T4 ordered. Cardiac cath was negative for significant obstructive CAD. latex dipper showed long run of wide-complex tachycardia yesterday but seems more LBBB morphology but V. tach could not be ruled. He did not get AICD firing. 11/18: Patient discharged on amiodarone 200 mg twice daily and metoprolol succinate 50 mg daily after discussion with the broke beater operator. Follow-up in the cardiology office. Continue rest of the medications. Hydroxyzine discontinued because of severe QT prolonging interaction with amiodarone. #Type 2 diabetes mellitus: On Lantus 10 units daily. InsulinSliding scale. Checks ACHS. 11/18: Patient has hyperglycemia Lantus dose increased to 15 units subcutaneous daily and will log insulin dose increased to 17 units twice daily with meal #Atrial fibrillation: Status post pacemaker. On Xarelto and metoprolol #History of CAD: Status post stents. #Benign essential hypertension: On metoprolol #Heart failure preserved ejection fraction: Not in exacerbation. On p.o. Lasix. #Hyperlipidemia: On statin #Hypothyroidism: On Synthroid. #Depression: On venlafaxine DVT prophylaxis: Already on Xarelto CODE STATUS: Full code Discharge medication reconciliation done. Discharge follow-up instructions completed. Discharge process discussed with the patient and all questions were answered to patient's satisfaction. Follow with PCP in 1 to 2 weeks Total time spent, exact 35 minutes on discharge meds reconciliation, examination, coordination of care with nurses and ancillary staff, review of imaging and blood test and discussion with the patient on follow-up instructions. Laboratory Results 11/16/24 14:34: APTT 51.4 H 11/16/24 16:07: POC Glucose 104 11/16/24 21:43: POC Glucose 150 H 11/16/24 23:19: APTT 72.7 H 11/17/24 06:03: WBC 5.0, RBC 3.60 L, Hgb 10.5 L, Hct 31.8 L, MCV 88.3, MCH 29.2, MCHC 33.0, RDW Std Deviation 45.0 H, RDW Coeff of Marifer 13.9, Plt Count TNP, MPV TNP, Immature Gran % (Auto) 0.400, Neut % (Auto) 52.2, Lymph % (Auto) 32.1, [place] % (Auto) 11.7 H, Eos % (Auto) 3.2, Baso % (Auto) 0.4, Absolute Neuts (auto) 2.6, Absolute Lymphs (auto) 1.62, Nucleated RBC % 0, Differential Comment SCANNED, Platelet Estimate ADEQUATE, Plt Morphology Comment CLUMPED, APTT 70.1 H, Sodium 135, Potassium 3.8, Chloride 101, Carbon Dioxide 24.1, Anion Gap 10, BUN 22 H, Creatinine 0.98, Estim Creat Clear Calc 78.73, Est GFR (MDRD) Non-Af 80, BUN/Creatinine Ratio 22.9 H, Glucose 183 H, Calcium 9.0, Magnesium 1.8, TSH 0.228 L 11/17/24 11:42: POC Glucose 201 H Clinical Impression(s) from Imaging Studies Chest X-Ray 11/14/24 10:37 IMPRESSION: No acute process. Bochdalek's hernia. Echocardiogram 11/15/24 13:38 Interpretation Summary The left ventricular ejection fraction is 60 %. Normal LV size. The left atrium is moderately enlarged. The right atrium is moderately enlarged. ICD or pacer leads identified within the right ventricle. Contrast injection was performed. The study was technically limited. Medications at Discharge Home Medications metformin 500 mg tablet,extended release 24 hr 1,000 mg PO DAILY diabetes 03/02/20 PEP device #1 ea 11/14/21 ferrous sulfate 325 mg (65 mg iron) tablet 325 mg PO DAILY supplement 01/02/22 acetaminophen 500 mg tablet 1,000 mg PO Q8H PRN pain 08/03/24 buspirone 7.5 mg tablet 7.5 mg PO BID mental health 08/03/24 lisinopril 5 mg tablet 5 mg PO DAILY bp 08/03/24 atorvastatin 40 mg tablet 40 mg PO QHS cholesterol 09/01/24 clopidogrel 75 mg tablet 75 mg PO DAILY anti platelet 09/01/24 levothyroxine 175 mcg tablet 175 mcg PO DAILY thyroid 09/01/24 rivaroxaban 20 mg tablet 20 mg PO DAILY 09/01/24 venlafaxine 75 mg capsule,extended release 24 hr 75 mg PO DAILY mental health 09/01/24 furosemide 40 mg tablet (Lasix) 40 mg PO DAILY diuretic #60 tabs 09/03/24 acetylcysteine 600 mg capsule 600 mg PO BID 09/21/24 ascorbic acid (vitamin C) 500 mg tablet 500 mg PO DAILY vitamin 09/21/24 cholecalciferol (vitamin D3) 25 mcg (1,000 unit) tablet (Vitamin D3) 25 mcg PO DAILY vitamin 09/21/24 blood sugar diagnostic (True Metrix Glucose Test Strip) #10 ea 11/10/24 amiodarone 200 mg tablet 200 mg PO BID 1 month #60 tabs 11/18/24 insulin glargine 100 unit/mL (3 mL) subcutaneous pen (Lantus Solostar U-100 Insulin) 15 unit (0.15 mL) subcut DAILY 30 days #0 mL 11/18/24 insulin lispro 100 unit/mL subcutaneous pen (Humalog KwikPen (U-100) Insulin) 17 unit (0.17 mL) subcut BIDAC 30 days #0 mL 11/18/24 magnesium chloride 64 mg (magnesium chloride) tablet,delayed release (Mag 64) 128 mg (2 x 64 mg) PO DAILY 1 month #60 tabs 11/18/24 metoprolol succinate 50 mg tablet,extended release 24 hr 50 mg PO DAILY 30 days #30 tabs 11/18/24 Physical Exam Narrative Seen and examined. Patient does not have any symptoms. latex dipper shows paced rhythm. Discussed with the broke beater operator Tim 1 PCI in June 2024. Denies chest pain or shortness of breath or syncope. Physical exam General: Alert, Oriented x3, Cooperative HEENT: Moderate hearing loss. Atraumatic, PERRLA, EOMI, Normocephalic. Oral: No Gingival or Mucosal Lesions/ Ulcerations Neck: Supple, No JVD, Negative Carotid Bruits Chest wall/Lungs: Air entry diminished in bilateral lung bases. No crepitation/rhonchi Cardiovascular: Paced rhythm, Normal S1,S2, systolic murmur LLSB. Left upper chest AICD Abdomen: Bowel Sounds Present, Soft, Non Tender, Non-Distended : No dysuria. No renal angle tenderness. No suprapubic tenderness. Extremities: No edema, Capillary Refill Less than 3 Seconds Skin: No rashes, No breakdown Musculoskeletal: No Tenderness to Palpation of Joints or Extremities Neurological: Cranial nerves II-XII grossly intact, DTR 2+/4. No acute focal neurological deficit. Psych/Mental Status: Normal Affect, Appropriate. Weight / BMI Weight Weight: 222 lb 8 oz Body Mass Index (BMI) 27.1 ABG / Lab / Microbiology Data 11/18/24 05:59 11/18/24 05:59 Laboratory: Laboratory Results - last 24 hr 11/17/24 06:03: Free T4 1.50 H 11/17/24 11:42: POC Glucose 201 H 11/17/24 16:07: POC Glucose 351 H 11/17/24 22:30: POC Glucose 180 H 11/18/24 05:59: WBC 6.6, RBC 3.91 L, Hgb 11.6 L, Hct 34.5 L, MCV 88.2, MCH 29.7, MCHC 33.6, RDW Std Deviation 44.7 H, RDW Coeff of Marifer 13.8, Plt Count TNP, Immature Gran % (Auto) 0.500, Neut % (Auto) 66.6, Lymph % (Auto) 22.0, [place] % (Auto) 8.5, Eos % (Auto) 2.1, Baso % (Auto) 0.3, Absolute Neuts (auto) 4.4, Absolute Lymphs (auto) 1.45, Nucleated RBC % 0, Platelet Estimate ADEQUATE, PT 20.0 H, INR 1.7, APTT 39.8 H, Sodium 134, Potassium 3.9, Chloride 102, Carbon Dioxide 22.1, Anion Gap 11, BUN 26 H, Creatinine 0.95, Estim Creat Clear Calc 81.22, Est GFR (MDRD) Non-Af 83, BUN/Creatinine Ratio 27.2 H, Glucose 184 H, Calcium 9.2 D/C Instructions DC O2, CPAP, BIPAP Needs Home O2 Discharge instructions: No Meaningful Use Info Meaningful Use Meaningful Use Diagnoses (Choose all that apply): None applicable Ischemic Stroke Statin Dosing Therapy Reference: STATIN DOSE THERAPY REFERENCE: * Patients > 75 years receive moderate or high dose statin therapy. * Patients 75 years or YOUNGER should receive HIGH intensity statin dose unless contraindicated. You will be required to document reason for non-treatment if statin daily dose does not meet guidelines. HIGH DOSE STATIN THERAPY DAILY Atorvastatin > than or = to 40 mg Rosuvastatin > than or = to 20 mg Amlodipine + Atorvastatin > than or = to 2.5/40 mg Ezetimibe + Simvastatin 10/80 mg Simvastatin 80mg Discharge Plan Admission Admit Date/Time: 11/14/24 12:55 Primary Reason for Your Visit: CHEL lara Attending Provider: Osmar Brown Primary Care Provider: Raffaele Olguin Consulting Providers: Maame,Judson; Erin Morris Instructions Additional Instructions / Restrictions: Hydroxyzine discontinued because of severe QT prolongation interaction with amiodarone Discharge Orders/Prescriptions Prescriptions: New magnesium chloride [Mag 64] 64 mg Tablet,Delayed Release (Dr/Ec) 128 mg PO DAILY 30 Days Qty: 60 2RF metoprolol succinate 50 mg Tablet Extended Release 24 Hr 50 mg PO DAILY 30 Days Qty: 30 3RF amiodarone 200 mg tablet 200 mg PO BID 30 Days Qty: 60 2RF Continued metformin 500 mg tablet extended release 24 hr 1,000 mg PO DAILY (DME) PEP device See Rx Instructions .Route .MEDSUPPLY Qty: 1 0RF Rx Instructions: with training venlafaxine 75 mg capsule,extended release 24hr 75 mg PO DAILY levothyroxine 175 mcg tablet 175 mcg PO DAILY buspirone 7.5 mg tablet 7.5 mg PO BID lisinopril 5 mg tablet 5 mg PO DAILY acetaminophen 500 mg tablet 1,000 mg PO Q8H PRN (Reason: pain) (DME) True Metrix Glucose Test Strip Strip See Rx Instructions .ROUTE QDAY Qty: 10 Rx Instructions: As directed ferrous sulfate 325 mg (65 mg iron) Tablet 325 mg PO DAILY atorvastatin 40 mg tablet 40 mg PO QHS clopidogrel 75 mg tablet 75 mg PO DAILY rivaroxaban 20 mg tablet 20 mg PO DAILY Rx Instructions: must administer with evening meal furosemide [Lasix] 40 mg tablet 40 mg PO DAILY Qty: 60 0RF ascorbic acid (vitamin C) 500 mg tablet 500 mg PO DAILY cholecalciferol (vitamin D3) [Vitamin D3] 25 mcg (1,000 unit) tablet 25 mcg PO DAILY acetylcysteine 600 mg capsule 600 mg PO BID Changed insulin lispro [Humalog KwikPen Insulin] 100 unit/mL insulin pen 17 unit SUBCUT BIDAC 30 Days Qty: 0 0RF insulin glargine [Lantus Solostar U-100 Insulin] 100 unit/mL (3 mL) insulin pen 15 unit subcut DAILY 30 Days Qty: 0 0RF Discontinued hydroxyzine pamoate 50 mg capsule 50 mg PO BID metoprolol succinate 25 mg tablet extended release 24 hr 25 mg PO DAILY Referrals / Follow Up: Judson Isabel MD [[facility] Staff - Active Staff] - Within 1 Month ([place] called the office if they do not get back to you in 2-3 business days with an appointment, please call the office. ) Raffaele Olguin MD [Primary Care Provider] - 12/01/24 1:40 pm Disposition Disposition (needs filled in before D/C Order can be placed): Home, Self Care Charges/Coding Visit Charges Inpatient E&M: 48265 Disch Hosp >30min
[2024-11-18] MEDS: Insulin Lispro 100 UNIT/ML INSULN.PEN SC ×2 (10:19→12:00)
[2024-11-18] MEDS: Insulin Glargine-YFGN 100 UNIT/ML Pen 20 UNIT SC (10:20)
[2024-11-18] MEDS: Insulin Lispro 100 UNIT/ML INSULN.PEN 17 UNIT SC (10:20)
[2024-11-18] MEDS: Amiodarone 200 MG Tablet PO (11:55)
[2024-11-18] MEDS: Ferrous Sulfate 325 MG Tablet PO (11:55)
[2024-11-18] MEDS: Ascorbic Acid 500 MG Tablet PO (11:55)
[2024-11-18 12:43] LABS: Bedside Glucose 233 mg/dL (74-106)
--- NOTE | 2024-11-18 13:11 | CASEMGMT ---
Patient has order for discharge. RN CM in to discuss needs at discharge, family at bedside. Patient is declining HHC at discharge. RN CM informed patient and family that should they reconsider HHC to follow-up with PCP. Patient and family denied further needs or help at this time. Patient and family had no further questions or concerns.
--- NOTE | 2025-01-11 09:45 | CL.D_ITS ---
Patient Name: ARMIN CHAND Study Date: 11/17/2024 Performing: Judson Isabel MD Ht: 76 inches 193.04 cm : 1950 Wt: 222.8 lbs 100.92 kg Age: 74 Gender: male BSA: 2.32 PROCEDURE(S) PERFORMED DC01-([id number])LHC/COR/LV CLINICAL PROFILE AND INDICATIONS Indications: Cardiac Arrythmia Heart Failure: None Stress/Imaging Stress/Image Study Performed: No CAD Presentations: Other: VT CONCLUSIONS Non obstructive coronary arteries RECOMMENDATIONS Medical therapy DESCRIPTION OF PROCEDURE The patient arrived to the procedure lab. The risks and benefits of the procedure as well as a full description of our services here and current unavailability of surgical backup were fully explained to the patient and/or their significant other prior to the catheterization. The Timeout was completed, verifying the correct patient and procedure. The patient's procedural site was prepped and draped in the usual fashion. Local anesthetic was given subcutaneously to right radial region with Lidocaine 2%. Local anesthetic was given subcutaneously to right groin region with Lidocaine 2%. Using a modified Seldinger technique, Left Coronary Artery selective angiography was performed in multiple views using a 5 Fr. JL4 catheter. Right Coronary Artery selective angiography was then performed in multiple views using a 5 Fr. 3DRC (Derrick) catheter. Left Ventriculography was performed in WALKER projection using a 5 Fr. Pigtail catheter. LV to AO pullback pressures were then recorded.The arterial sheath was pulled and manual compression applied until hemostasis is achieved. CORONARY ANGIOGRAPHY DOMINANCE: Right Dominant LEFT HEART ASSESSMENT Left Ventricular Ejection Fraction: by LV Gram 60 % Normal LV wall motion Normal Left Ventricular systolic function LEFT MAIN: Mild calcification, Mild luminal irregularities LEFT ANTERIOR DESCENDING ARTERY: Moderate luminal irregularities up to 50% CIRCUMFLEX ARTERY: Mild luminal irregularities less than 30% RIGHT CORONARY ARTERY: Mild luminal irregularities PROX RCA: Previously placed stent is patent MID RCA: Mild luminal irregularities COMPLICATIONS No Complications PROCEDURE MEDICATIONS Fentanyl 50 mcg IV Versed 1 mg IV Oxygen: 2 L/min via nasal cannula Oxygen: 3 L/min via nasal cannula Aspirin (325mg) 1 Tabs PO 11/17/2024 09:06:30 Benadryl 50 mg IV 11/17/2024 09:06:49 Amiodarone 500mg / 100ml D5W @ 0.5 mg/min IV started in PCU, continued in photonic laboratory technician @ 11/17/2024 09:09:34 Solu-medrol 125 mg IV 11/17/2024 09:07:05 SUMMARY OF HEMODYNAMIC DATA Time AIR REST ECG 09:01:15 AO 115/64 (85) SA 09:35:55 LV 108/8, 17 09:47:15 LV 106/8, 12 09:47:21 LV 113/12, 14 09:48:03 LVp 114/10, 15 09:48:07 AOp 119/61 (84) 09:48:12 Signed By Judson Isabel MD On 11/17/2024 16:48:16 Judson Isabel MD
== END 2024-11-18 14:35 | disposition home or self-care (01) | DRG 287 ==
LOC: ED 12:24 → PCU 13:16
PROVIDERS: Internal Medicine; Internal Medicine Cardiovascular Disease; Admitting Provider Student in an Organized Health Care Education/Training Program; Emergency Provider Emergency Medicine; PCP Family Medicine; Visit Provider Internal Medicine
DX: I47.20 Ventricular tachycardia, unspecified (principal); I24.89 Other forms of acute ischemic heart disease; I50.30 Unspecified diastolic (congestive) heart failure; T82.847A Pain due to cardiac prosthetic devices, implants and grafts, initial encounter; I49.01 Ventricular fibrillation; E11.9 Type 2 diabetes mellitus without complications; J44.9 Chronic obstructive pulmonary disease, unspecified; E03.9 Hypothyroidism, unspecified; I11.0 Hypertensive heart disease with heart failure; F32.A Depression, unspecified; E78.00 Pure hypercholesterolemia, unspecified; I48.91 Unspecified atrial fibrillation; Z79.4 Long term (current) use of insulin; I25.10 Atherosclerotic heart disease of native coronary artery without angina pectoris; R07.9 Chest pain, unspecified; H54.8 Legal blindness, as defined in USA; Z87.891 Personal history of nicotine dependence; Z79.899 Other long term (current) drug therapy; Z79.84 Long term (current) use of oral hypoglycemic drugs; Z95.5 Presence of coronary angioplasty implant and graft; Z95.810 Presence of automatic (implantable) cardiac defibrillator; X58.XXXA Exposure to other specified factors, initial encounter
CPT/HCPCS: 36415; 71045; 80048; 82962; 83735; 84439; 84443; 84484; 85025; 85610; 85730; 93005; 93308; 93458; 97162; 97166; 97530; 99152; 99153; 99285; C1894; Q9957; Q9967; A4216; C1769; C8924

== ENCOUNTER → 2024-12-01 | Outpatient (CLI) | payer MEDICARE, OTHER, SELFPAY ==
--- NOTE | 2024-12-01 14:42 | CT_ITS ---
PROCEDURE: CHEST WITHOUT CONTRAST 12/01/2024 REASON FOR EXAM: HISTORY OF PNEUMONIA 09/02/24, QUIT SMOKING 2009 TECHNIQUE: Chest CT without contrast. Coronal and Sagittal reconstruction series were provided. One or more dose reduction techniques were used (e.g., Automated exposure control, adjustment of the mA and/or kV according to patient size, use of iterative reconstruction technique RADIATION DOSE SUMMARY: CTDlvol: 15 mGy DLP: 491 mGycm COMPARISON: 09/02/2024, abdominal CT 09/11/2018 FINDINGS: Central airways are patent. Mild emphysema. No pneumothorax. Interval resolution of small left effusion. On the left, clearing of posterior lower lobe atelectasis. Clearing of multifocal areas of upper lobe peripheral consolidation. Persistent peripheral reticulation and ground-glass opacity, likely chronic change. On the right, improved left lower lobe aeration. Partial clearing of most of right upper lobe consolidative airspace disease with residual. Small middle lobe atelectasis. Unremarkable base of neck and axilla. Mild cardiac enlargement. No acute vascular pathology. Mediastinal adenopathy likely reactive. Thoracic spine scoliosis and degeneration. Status post kyphoplasty at T12. Old L1 compression deformity. Worsening T8 vertebral body compression deformity. Healing sternal fracture. Left-sided cardiac device. Multiple old rib fractures. 2 cm left adrenal nodule, not meeting criteria for benign adenoma, and not seen in 2019. Recommend adrenal protocol CT. No acute upper abdominal findings. CT/Chest without Contrast IMPRESSION: Significant interval improvement in bilateral airspace disease, with some resid ual mainly in the periphery of the right upper lobe. Continued posttreatment progress imaging recommended. Resolution of small left effusion. Worsening T8 vertebral body compression deformity. Consider kyphoplasty. Indeterminate 2 cm left adrenal nodule. Recommend adrenal protocol CT. Reading Location: [place] [id number]
== END | disposition home or self-care (01) ==
LOC: CT 14:42
PROVIDERS: PCP Family Medicine; Referring Provider Nurse Practitioner Family; Visit Provider Nurse Practitioner Family
DX: J43.2 Centrilobular emphysema (principal)
CPT/HCPCS: 71250

== ENCOUNTER → 2025-01-01 | Outpatient (CLI) | payer MEDICARE, OTHER, SELFPAY | END | disposition home or self-care (01) | LOC: PSN 10:32 | PROVIDERS: PCP Family Medicine; Referring Provider Nurse Practitioner Family; Visit Provider Nurse Practitioner Family | DX: J43.2 Centrilobular emphysema (principal) | CPT/HCPCS: 94060; 94726; 94729 ==

== ENCOUNTER → 2025-01-05 | Outpatient (CLI) | payer MEDICARE, OTHER, SELFPAY ==
--- NOTE | 2025-01-05 11:35 | CT_ITS ---
PROCEDURE: ABDOMEN W/WO IV CONTRAST 01/05/2025 REASON FOR EXAM: NEW NODUL TECHNIQUE: ABDOMEN W/WO IV CONTRAST. Multiplanar Sagittal and Coronal images were obtained. One or more dose reduction techniques were used (e.g., Automated exposure control, adjustment of the mA and/or kV according to patient size, use of iterative reconstruction technique. CONTRAST: Isovue-300 VOLUME: 100 mL RADIATION DOSE SUMMARY: CTDlvol: 34.5 mGy DLP: 3450.46 mGycm COMPARISON: Prior study dated July 07, 2024. FINDINGS: Lung bases: Mild increased markings at the lung bases suggestive of linear atelectasis and/or scarring. Coronary artery calcification. Dual-chamber pacemaker is seen. Liver: Normal size. No mass. Gallbladder: Solitary gallstone Spleen: Normal size. Pancreas: Diffuse fatty atrophy. Adrenals: Unremarkable Kidneys: Normal renal sizes. No hydronephrosis. Bowel: Sigmoid diverticulosis Lymph nodes: Unremarkable. Vasculature: Atherosclerotic calcification of the abdominal aorta and major visceral branches. Peritoneum / Retroperitoneum: Unremarkable Bones: Prior vertebroplasty of the L2 and L3 vertebrae with loss of height of multiple vertebrae. CT/Abdomen W/WO IV Contrast IMPRESSION: Solitary gallstone. Scarring in both lung bases. Reading Location: [id number]
[2025-01-05 12:12] VITALS: PULSE 70; PULSE 71; PULSE 74; PULSE 76; PULSE 79; PULSE 82; PULSE 84; O2SAT 94; O2SAT 95; O2SAT 96; O2SAT 97; O2SAT 99
[2025-01-05 12:13] LABS: CREATININE FINGERSTICK < 1.0 mg/dL (0.70-1.30); EGFR FINGERSTICK > 60.0000 mL/min (>60)
--- NOTE | 2025-01-05 12:17 | CPS ---
PATIENT USED A WALKER FOR TESTING. FOR PT SAFETY, GUIDANCE PROVIDED TO KEEP HIM GOING STRAIGHT AND WHEN TO TURN AROUND, OTHERWISE PATIENT AMBULATED ON HIS OWN WITH THE WALKER. HE DID NOT REQUEST ANY REST BREAKS DURING TESTING, TESTING PERFORMED WITHOUT SUPPLEMENTAL OXYGEN NEEDED. HE AMBULATED A TOTAL OF 344FT DURING 6 MINUTES.
--- OUTSIDE RECORDS SUMMARY | 2025-01-05 18:49 | XMS RPT_ITS | CCD ---
Author Organization [facility] Care Team Providers Care Rooter Operator Name Role Phone SAGAR GARCIA Unavailable Unavailable SAGAR GARCIA Unavailable Unavailable MARISOL TUCKER Unavailable Unavailable Dr. Jessi Olguin Primary Care Provider [phone] Dr. Jessi Olguin Referring Provider Dr. Jeremy Ovalle Attending Provider Dr. Kyleigh Andrade Attending Provider 1([facility])[phone] Dr. Kyleigh Andrade Other Provider 1([facility])- [phone] Dr. Jessi Olguin Primary Care Provider Dr. Jessi Olguin Referring Provider 1([facility])[phone] Albaro MAINTENANCE AND UTILITIES SUPERVISOR, MAINTENANCE AND UTILITIES SUPERVISOR-C Sedrick Padilla Attending Provider Dr. Alejandro Guerrero Attending Provider Dr. Alejandro Guerrero Referring Provider Dr. Alejandro Guerrero Other Provider Dr. Jessi Olguin Primary Care Provider 1([facility])[phone] Dr. Kyleigh Andrade Attending Provider [phone] Dr. Kyleigh Andrade Other Provider [phone] Dr. Jessi Olguin Referring Provider Dwayne MAINTENANCE AND UTILITIES SUPERVISOR, MAINTENANCE AND UTILITIES SUPERVISOR-C Mey Attending Provider Dr. Jessi Olguin Primary Care Provider [phone] Jessi Olguin Referring Provider Dr. Judson Isabel Attending Provider Dwayne MAINTENANCE AND UTILITIES SUPERVISOR, MAINTENANCE AND UTILITIES SUPERVISOR-C Mey Attending Provider Dr. Jessi Olguin Primary Care Provider [phone] Jessi Olguin Referring Provider Dwayne ANGELES, MAINTENANCE AND UTILITIES SUPERVISOR-C Mey Attending Provider Dr. Jessi Olguin Primary Care Provider Dr. Jessi Olguin Referring Provider Ryan MAINTENANCE AND UTILITIES SUPERVISOR, MAINTENANCE AND UTILITIES SUPERVISOR-C Danni Attending Provider Dr. Jessi Olguin Primary Care Provider Dr. Jessi Olguin Referring Provider Ryan ANGELES, MAINTENANCE AND UTILITIES SUPERVISOR-C Danni Attending Provider CATHERINE BLAS, DR SEDRICK [...] Provider Wiley LOPEZ, Dr. Ewing Emergency Provider Dr. Jessi Kaur DO Admit Provider Dr. Jessi Kaur DO Attending Provider Kathy BLAS, Dr. Fagan Other Provider Dr. Jessi Kaur DO Other Provider Kathy BLAS, Dr. Fagan Attending Provider Dr. Dhiraj Carlton DO Attending Provider Dr. Dhiraj Carlton DO Emergency Provider Ryan ANGELES-CDanni Attending Provider Ryan ANGELES-CDanni Referring Provider Ezequiel Zimmer Attending Provider Unavailable Sharif BLAS, Dr. Castorena Referring Provider [phone] Dwayne ANGELES-CMey Attending Provider Jeanne VILLAR, Sanaz Jimenez Attending Provider Elli LOPEZ, Dr. Castorena Emergency Provider Alek BLAS, Dr. Shonda Bar Admit Provider Alek BLAS, Dr. Shonda Bar Attending Provider Alek BLAS, Dr. Shonda Bar Other Provider Irais BLAS, Dr. Muir Attending Provider Luis Braxton MD, Dr. Muir Other Provider Unavailable Sharif BLAS, Dr. Castorena Attending Provider [phone] Sharif BLAS, Dr. Castorena Primary Care Provider Dr. Kaylin Jama DO Emergency Provider Natasha LOPEZ, Dr. Castorena Admit Provider Dr. Jessi Kaur DO Attending Provider Kathy BLAS, Dr. Fagan Other Provider Natasha LOPEZ, Dr. Castorena Other Provider Kathy BLAS, Dr. Fagan Attending Provider Dr. Dhiraj Carlton DO Attending Provider Dr. Dhiraj Carlton DO Emergency Provider Ryan ANGELES-Danni Ordonez Attending Provider Ryan ANGELES-CDanni Referring Provider Ezequiel Zimmer Attending Provider Unavailable hSarif BLAS, Dr. Castorena Referring Provider [phone] Mey Singletary Attending Provider Sanaz Schwartz Attending Provider Elli LOPEZ, Dr. Castorena Emergency Provider Alek BLAS, Dr. Shonda Bar Admit Provider Alek BLAS, Dr. Shonda Bar Other Provider Irais BLAS, Dr. Muir Attending Provider Luis Braxton MD, Dr. Muir Other Provider Unavailable Sharif BLAS, Dr. Castorena Attending Provider Isma BLAS, Dr. Vega Attending Provider Isma BLAS, Dr. Vega Referring Provider Isma BLAS, Dr. Vega Emergency Provider Sharif BLAS, Dr. Castorena Primary Care Provider Isma BLAS, Dr. Vega Attending Provider Isma BLAS, Dr. Vega Referring Provider Isma BLAS, Dr. Vega Emergency Provider Santos MAINTENANCE AND UTILITIES SUPERVISOR-CMichelle Attending Provider Sharif BLAS, Dr. Castorena Primary Care Provider Santos MAINTENANCE AND UTILITIES SUPERVISOR-C, Michelle Jimenez Attending Provider Marcelo BLAS, Dr. Bolton Emergency Provider [phone] Alexandra BLAS, Dr. Erin Redding Admit Provider Alexandra BLAS, Dr. Erin Redding Other Provider Maame BLAS, Dr. Roper Other Provider Kevin BLAS, Dr. Prasad Attending Provider Ning BLAS, Dr. Mcclain Attending Provider Unavaila ble Ning BLAS, Dr. Mcclain Other Provider Unavailable Alexandra BLAS, Dr. Erin Redding Attending Provider Maame BLAS, Dr. Roper Attending Provider Kevin BLAS, Dr. Prasad Other Provider Sharif BLAS, Dr. Castorena Primary Care Provider Marcelo BLAS, Dr. Bolton Emergency Provider Alexandra BLAS, Dr. Erin Redding Admit Provider Alexandra BLAS, Dr. Erin Redding Other Provider Maame BLAS, Dr. Roper Other Provider Kevin BLAS, Dr. Prasad Attending Provider Ning BLAS, Dr. Mcclain Attending Provider Unavaila saima Barclay MD, Dr. Mcclain Other Provider Unavailable Alexandra BLAS, Dr. Erin Redding Attending Provider Maame BLAS, Dr. Roper Attending Provider Kevin BLAS, Dr. Prasad Other Provider Sharif BLAS, Dr. Castorena Primary Care Provider Sharif BLAS, Dr. Castorena Referring Provider Santos MAINTENANCE AND UTILITIES SUPERVISOR-C, Michelle Jimenez Referring Provider Sharif BLAS, Dr. Castorena Primary Care Provider Sharif BLAS, Dr. Castorena Referring Provider Santos MAINTENANCE AND UTILITIES SUPERVISOR-C, Michelle Jimenez Referring Provider Jessi Olguin Attending Unavailable Olguin, Jessi Primary Care Unavailable Olguin, Jessi Referring Unavailable Johny Barclay Consulting Unavailable Johny Barclay Attending Unavailable Erin Morris Admitting Unavailable Olguin, Jessi Primary Care Unavailable Erin Morris Consulting Unavailable Erin Morris Attending Unavailable Olguin, Jessi Primary Care Unavailable Olguin, Jessi Referring Unavailable Olguin, Jessi Attending Unavailable Judson Isabel Consulting Unavailable Judson Isabel Attending Unavailable Osmar Brown Consulting Unavailable Olguin, Jessi Primary Care Unavailable Dhiraj Carlton Attending Unavailable Dwayne MAINTENANCE AND UTILITIES SUPERVISORMey Attending Unavailable Olguin, Jessi Primary Care Unavailable Olguin, Jessi Referring Unavailable Olguin, Jessi Primary Care Unavailable Gracia Chavez Attending Unavailabl e Michelle Graham Attending Unavailable Olguin, Jessi Referring Unavailable Olguin, Jessi Primary Care Unavailable Olguin, Jessi Primary Care Unavailable Olguin, Jessi Referring Unavailable Sanaz Schwartz Attending Unavail able Olguin, Jessi Primary Care Unavailable Michelle Graham Attending Unavailable Olguin, Jessi Referring Unavailable Osmar Brown Attending Unavailable Olguin, Jessi Primary Care Unavailable Michelle Graham Attending Unavailable Michelle Graham Referring Unavailable Olgiun, Jessi Primary Care Unavailable Michelle Graham Attending Unavailable Michelle Graham Referring Unavailable Olguin, Jessi Primary Care Unavailable Sanaz Schwartz Attending Unavail able Olguin, Jessi Referring Unavailable Ryan MAINTENANCE AND UTILITIES SUPERVISOR, Danni Referring Unavailable Ryan MAINTENANCE AND UTILITIES SUPERVISOR, Danni Attending Unavailable Olguin, Jessi Primary Care Unavailable Olguin, Jessi Primary Care Unavailable Nagajothi Nagapradee Consulting Unavailabl e Jopperi, Jessi Admitting Unavailable Jopperi, Jessi Attending Unavailable White Shonda L Consulting Unavailable Wood Braxton Attending Unavailable Olguin, Jessi Primary Care Unavailable White, Shonda L Admitting Unavailable Ezequiel Zimmer Attending Unavailable Olguin, Jessi Primary Care Unavailable Olguin, Jessi Attending Unavailable Olguin, Jessi Primary Care Unavailable Olguin, Jessi Referring Unavailable Olguin, Jessi Primary Care Unavailable Mey Rice NP Attending Unavailable Olguin, Jessi Referring Unavailable Olguin, Jessi Primary Care Unavailable Sanaz Schwartz Attending Unavail able Olguin, Jessi Referring Unavailable Olguin, Jessi Primary Care Unavailable Jopperi, Jessi Admitting Unavailable Jopperi, Jessi Consulting Unavailable Jolyndaeri, Jessi Attending Unavailable Nagajothi, Nagapradee Consulting Unavailabl e Shonda Gaston Attending Unavailable White, Shonda L Consulting Unavailable Olguin, Jessi Primary Care Unavailable White Shonda L Admitting Unavailable Wood Braxton Attending Unavailable Wood Braxton Consulting Unavailable Olguin, Jessi Primary Care Unavailable Ryan MAINTENANCE AND UTILITIES SUPERVISOR, Danni Attending Unavailable Olguin, Jessi Referring Unavailable Olguin, Jessi Primary Care Unavailable Gracia Chavez Attending Unavailabl e Gracia Chavez Attending Unavailabl e Isma, Gary Referring Unavailable Ashby Gary Attending Unavailable Olguin, Jessi Primary Care Unavailable Olguin, Jessi Primary Care Unavailable Jose Bliss Attending Unavailabl e Olguin, Jessi Primary Care Unavailable Jose Bliss Attending Unavailabl e Osmar Bronw Attending Unavailable Koram, Erin Miladis Admitting Unavailable Koram, Erin Miladis Consulting Unavailable Olguin, Jessi Primary Care Unavailable Maame, Judson Consulting Unavailable Olguin, Jessi Primary Care Unavailable Michelle Graham Attending Unavailable Michelle Graham Referring Unavailable Allergies Allergy Classification Reported Allergen(s) Allergy Type Date of Onset Reaction(s) Facility (4 sources) Shellfish; Translations: [shellfish derived] Allergy to substance 2 [facility] (1 source) Shellfish Food allergy Weal (disorder) [facility] Medications Current Medications Medication Drug Class(es) Dates Sig (Normalized) Sig (Original) acetaminophen 500 mg oral tablet (8 sources) Start: 08-03-2024 acetylcysteine 600 mg oral capsule (6 sources) Antidote, Mucolytic, Antidote for Acetaminophen Overdose Start: 09-21-2024 amiodarone hydrochloride 200 mg oral tablet (7 sources) Antiarrhythmic Start: 11-18-2024 End: 12-01-2024 Start: 11-18-2024 End: 12-01-2024 take 1 tablet by mouth twice daily Amiodarone 200 mg tablet Discontinued 200 mg PO TWICE A DAY 60 30 2 November 18, 2024 12:00am December 01, 2024 9:18am ascorbic acid 500 mg oral ta blet (6 sources) Vitamin C Start: 09-21-2024 busPIRone hydrochloride 7.5 mg oral tablet (8 sources) Start: 08-03-2024 cholecalciferol 0.025 mg ora l tablet (20 sources) Vitamin D Start: 09-21-2024 Start: 08-03-2024 End: 09-21-2024 Start: 01-02-2022 End: 08-03-2024 Start: 09-18-2018 End: 05-16-2021 Start: 09-18-2018 End: 05-16-2021 take 1 tablet [...] Start: 01-02-2022 take 1 tablet by maris th once daily Ferrous Sulfate 325 mg (65 mg iron) Tablet Active 325 mg PO DAILY January 02, 2022 12:00am supplement Start: 08-14-2020 End: 10-05-2021 Start: 08-14-2020 End: 05-05-2022 take 1 tablet by mouth twice daily Ferrous Sulfate 325 MG tablet Discontinued 325 mg PO TWICE A DAY August 14, 2020 1:00am October 05, 2021 1:40pm furosemide 40 mg oral tablet (20 sources) Loop Diuretic Start: 09-03-2024 End: 11-20-2024 Start: 03-13-2023 End: 08-03-2024 take 1 tablet [...] March 13, 2023 10:10am Start: 05-16-2021 End: 08-03-2024 Start: 05-16-2021 End: 12-13-2022 Furosemide 40 mg tablet Disc ontinued 20 mg PO DAILY May 16, 2021 1:00am December 13, 2022 9:47am Start: 05-16-2021 End: 12-13-2022 take 20 mg by mouth once daily Furosemide Discontinued 20 MG PO DAILY May 16, 2021 1:00am December 13, 2022 9:47am Start: 03-02-2020 End: 05-16-2021 Start: 03-02-2020 End: 05-16-2021 take 2 tablets by mouth once daily Furosemide 20 mg tablet Discontinued 40 mg PO DAILY March 02, 2020 1:19pm May 16, 2021 11:13am Start: 03-02-2020 End: 05-16-2021 3 ml insulin glargine 100 unt/ml pen injector (20 sources) Insulin Analog Start: 11-18-2024 Insulin Glargi ne (Lantus Solostar U-100 Insulin) 100 unit/mL (3 mL) insulin pen Active 15 U SC DAILY 0 30 0 November 18, 2024 9:29am Start: 09-21-2024 End: 11-18-2024 Start: 09-21-2024 End: 11-18-2024 Insulin Glargine (Lantus Amrita ostar U-100 Insulin) 100 unit/mL (3 mL) insulin pen Discontinued 10 U SC DAILY September 21, 2024 12:00am November 18, 2024 9:29am Start: 06-27-2024 inject 0.1 mL by sub [...] 02, 2020 12:10pm August 15, 2020 10:24am Diabetes Start: 09-16-2018 End: 10-05-2021 Start: 09-16-2018 End: 10-05-2021 inject 50 [IU] by subcutaneous injection twice daily Insulin Glargine 100 UNIT/ML insulin pen Discontinued 50 U SQ TWICE A DAY 1 0 February 16, 2020 8:51am March 02, 2020 12:12pm Diabetes Start: 09-16-2018 End: 02-16-2020 Insulin Glargine (Lantus Amrita ostar U-100 Insulin) 100 UNIT/ML Insuln.Pen Discontinued 40 U SQ AT BEDTIME September 16, 2018 12:00am February 16, 2020 8:50am diabetes 3 ml insulin lispro 100 unt/ml pen injector (20 sources) Insulin Analog Start: 11-18-2024 Insulin Lispro (Humalog Kwikpen Insulin) 100 unit/mL insulin pen Active 17 U SC TWICE DAILY BEFORE MEALS 0 30 0 November 18, 2024 9:29am Start: 06-27-2024 inject 1 dose by sub cutaneous injection twice daily Lyumjev KwikPen 200 units/mL subcutaneous solution Dose : 12 unit(s) =, INJECT 12 units twice daily under the skin as directed with meal Start Date: 06/27/24 Status: Ordered Repeat number: 1 Start: 09-10-2022 End: 11-18-2024 Insulin Lispro (Humalog Kwik pen Insulin) 100 unit/mL insulin pen Discontinued 12 U SC TWICE DAILY BEFORE MEALS August 03, 2024 9:21am November 18, 2024 9:29am Start: 11-14-2021 End: 09-10-2022 Insulin Lispro (Humalog Kwik pen Insulin) 100 unit/mL insulin pen Discontinued 20 U SC TWICE A DAY November 14, 2021 10:00am September 10, 2022 10:53am Start: 10-05-2021 End: 11-14-2021 Insulin Lispro (Humalog Pen) 100 unit/mL Insulin Pen Discontinued 20 U SC THREE TIMES A DAY October 05, 2021 12:00am November 14, 2021 10:01am Start: 09-16-2018 End: 11-18-2024 Start: 09-16-2018 End: 11-18-2024 inject 24 [IU] by subcutaneous injection three times daily at mealtime Insulin Lispro 100 UNIT/ML insulin pen Discontinued 24 U SQ 3 TIMES DAILY WITH MEALS 1 0 February 16, 2020 8:51am August 14, 2020 2:34pm dm Start: 09-16-2018 End: 10-05-2021 inject 26 [IU] by subcutaneous injection twice daily at mealtime Insulin Lispro 100 UNIT/ML insulin pen Discontinued 26 U SQ TWICE DAILY WITH MEALS August 14, 2020 2:34pm August 15, 2020 10:24am dm Start: 09-16-2018 End: 02-16-2020 Insulin Lispro (Humalog Kwik pen Insulin) 100 UNIT/ML Insuln.Pen Discontinued 24 U SQ WITH DINNER September 16, 2018 12:00am February 16, 2020 8:46am dm Start: 10-30-2015 End: 08-01-2017 levothyroxine sodium 0.175 m g oral tablet (20 sources) l-Thyroxine Start: 09-01-2024 Start: 06-27-2024 levothyroxine 150 mcg (0.15 mg) oral tablet Dose : 150 mcg = 1 tab(s), Oral, qDayAC, 0 Refill(s) Start Date: 06/27/24 Status: Ordered Repeat number: 1 Start: 11-14-2021 End: 09-01-2024 Start: 07-25-2021 End: 11-14-2021 Start: 07-30-2014 End: 07-25-2021 lisinopril 2.5 mg oral table t (20 sources) Angiotensin Converting Enzyme Inhibitor Start: 12-01-2024 Start: 08-03-2024 End: 12-01-2024 Start: 02-16-2020 End: 05-16-2021 metFORMIN hydrochloride 500 mg oral tablet (20 sources) Biguanide Start: 06-27-2024 take 2 tablets by mouth once daily MetFORMIN (Eqv-Glucophage XR) 500 mg oral tablet, EXTENDED RELEASE TAKE 2 TABLETS BY MOUTH EVERY DAY Start Date: 06/27/24 Status: Ordered Repeat number: 1 Start: 03-02-2020 Start: 03-02-2020 take 1000 mg by mout h once daily Metformin Active 1000 MG PO DAILY March 02, 2020 12:00am Start: 09-16-2018 End: 02-16-2020 Start: 09-16-2018 End: 02-16-2020 Metformin 500 MG tablet Disc ontinued 1000 mg PO 1599September 16, 2018 12:00am February 16, 2020 8:44am dm Start: 09-16-2018 End: 02-16-2020 Metformin Discontinued 1000 MG PO 1599September 16, 2018 12:00am February 16, 2020 8:44am 24 hr metoprolol succinate 5 0 mg extended release oral tablet (20 sources) beta-Adrenergic Anthony Start: 11-18-2024 Start: 08-03-2024 End: 11-18-2024 Start: 07-01-2024 Toprol-XL 25 m g oral tablet, extended release Dose : 25 mg = 1 tab(s), Oral, qDayM, # 30 tab(s), 3 Refill(s), Pharmacy: [facility], 190, cm, 06/27/24 12:50:00 EST, Height, [...] Repeat number: 1 Start: 02-16-2020 End: 08-15-2020 PEP device (20 sources) Start: 11-14-2021 PEP device Act juan 0 .Route .MEDSUPPLY 1 0 November 14, 2021 10:01am Bronchiectasis, uncomplicated breathing with training Start: 11-14-2021 PEP device Act juan 0 .Route .MEDSUPPLY 1 November 14, 2021 9:01am with training Start: 11-14-2021 PEP device Act juan 0 .Route .MEDSUPPLY 1 November 14, 2021 10:01am with training Start: 06-20-2020 PEP device Act juan 0 .Route .MEDSUPPLY 1 June 20, 2020 12:22pm with training Start: 06-20-2020 End: 11-14-2021 PEP device Discontinued 0 .R oute .MEDSUPPLY 1 0 June 20, 2020 1:00am November 14, 2021 10:01am Bronchiectasis, uncomplicated with training Start: 06-20-2020 End: 11-14-2021 PEP device Discontinued 0 .R oute .MEDSUPPLY 1 June 20, 2020 12:00am November 14, 2021 [...] qDay, # 30 cap(s), 3 Refill(s), Pharmacy: [facility], 190, cm, 06/27/24 12:50:00 EST, Height, [...] 14, 2021 9:56am Start: 07-25-2021 End: 10-05-2021 24 hr venlafaxine 75 mg extended release oral capsule (20 sources) Serotonin and Norepinephrine Reuptake Inhibitor Start: 09-01-2024 Start: 06-24-2024 End: 09-01-2024 Start: 07-09-2023 take 225 mg by mouth once daily in the morning Venlafaxine Active 225 MG PO EVERY MORNING July 09, 2023 9:42am Start: 11-14-2021 End: 06-24-2024 Start: 11-14-2021 End: 07-09-2023 take 150 mg by mouth once daily in the morning Venlafaxine Discontinued 150 MG PO EVERY MORNING November 14, 2021 12:00am July 09, 2023 9:42am Start: 11-14-2021 take 225 mg by mouth once daily in the morning Venlafaxine Active 225 MG PO EVERY MORNING November 13, 2021 11:00pm Start: 07-25-2021 End: 11-14-2021 Start: 09-16-2018 End: 03-02-2020 Vitamin D3 (1 source) Start: 06-27-2024 Vitamin D3 Dos e : 100 mcg = 1 tab(s), Oral, Daily, 0 Refill(s) Start Date: 06/27/24 Status: Ordered Repeat number: 1 (20 sources) Start: 11-10-2024 Start: 08-03-2024 End: 09-21-2024 Start: 01-02-2022 Start: 11-14-2021 Start: 10-05-2021 End: 09-21-2024 Start: 10-05-2021 End: 11-14-2021 Start: 06-20-2020 End: 11-14-2021 Start: 03-14-2020 End: 06-20-2020 Completed/Discontinued Medications Medication Drug Class(es) Dates Sig (Normalized) Sig (Original) Acapella (20 sources) Start: 03-14-2020 End: 06-20-2020 Acapella Discontinued 1 March 14, 2020 11:56am June 20, 2020 12:21pm As directed Start: 03-14-2020 End: 06-20-2020 Acapella Discontinued 1 0 Oc tober 2019 12:00am June 20, 2020 12:21pm Bronchiectasis, uncomplicated Pulmonary toileting As directed Start: 03-14-2020 End: 06-20-2020 Acapella Discontinued 1 Octo wagner 2019 11:00pm June 20, 2020 11:21am As directed Start: 03-14-2020 End: 06-20-2020 Acapella Discontinued 1 Octo wagner 2019 12:00am June 20, 2020 12:21pm As directed acetaminophen 325 mg / oxyCO DONE hydrochloride 5 mg oral tablet (20 sources) Opioid Agonist Start: 09-11-2018 End: 09-14-2018 Start: 09-11-2018 End: 09-14-2018 Oxycodone-Acetaminophen 1 TA BLET tablet Discontinued 1 {tbl} PO EVERY 6 HOURS NEEDED as needed for Pain 8 3 0 September 11, 2018 12:00am September 13, 2018 12:00am September 14, 2018 12:10am Compression fracture of L5 vertebra Start: 09-11-2018 End: 09-14-2018 take 1 tablet by mouth every six hours as needed Oxycodone-Acetaminophen Discontinued 1 TABLET PO EVERY 6 HOURS NEEDED 8 3 September 11, 2018 12:00am September 14, 2018 12:10am [id number] 200 actuat albuter ol 0.09 mg/actuat metered dose inhaler (20 sources) beta2-Adrenergic Agonist Start: 09-10-2022 End: 08-03-2024 Start: 09-10-2022 End: 08-03-2024 Albuterol Sulfate 90 mcg/act uation HFA aerosol inhaler Discontinued 2 NMA INHALATION EVERY 6 HOURS as needed for shortness of breath or wheezing 8.5 1 September 10, 2022 12:00am August 03, 2024 9:26am Start: 09-10-2022 take 1 puff(s) by in halation every six hours Albuterol Sulfate Active 2 PUFF INHALATION EVERY 6 HOURS 8.5 September 10, 2022 12:00am Start: 08-16-2019 End: 05-16-2021 Start: 08-16-2019 End: 05-16-2021 Albuterol Sulfate 1 INHALER inhaler Discontinued 1 - 2 NMA INHALATION EVERY 4 HOURS NEEDED as needed for Wheezing 1 0 August 16, 2019 12:00am May 16, 2021 11:12am Start: 08-16-2019 End: 05-16-2021 take 1 puff(s) by inhalation every four hours as needed Albuterol Sulfate Discontinued 1 - 2 PUFF INHALATION EVERY 4 HOURS NEEDED 1 August 16, 2019 12:00am May 16, 2021 11:12am amylase [id number] unt / lipase [id number] unt / protease [id number] unt delayed release oral capsule (20 sources) Start: 08-14-2020 End: 05-16-2021 Start: 08-14-2020 End: 05-16-2021 Wewwhz-Tmvscjnl-Nmtghdc 1 EA CH capsule,delayed release(DR/EC) Discontinued 1 NMA PO THREE TIMES A DAY August 14, 2020 1:00am May 16, 2021 11:12am Start: 08-14-2020 End: 05-16-2021 Eryhda-Dcrozlto-Gyaxlse Disc ontinued 1 EACH PO THREE TIMES A DAY August 14, 2020 1:00am May 16, 2021 11:12am atorvastatin 40 mg oral tabl et (20 sources) HMG-CoA Reductase Inhibitor Start: 08-03-2024 End: 09-01-2024 azithromycin 500 mg oral tab let (8 sources) Macrolide Antimicrobial Start: 09-03-2024 End: 09-21-2024 Start: 09-01-2024 take 1 tablet by maris th once daily Azithromycin 250 mg tablet Active 250 mg PO DAILY 4 September 01, 2024 12:00am calcium carbonate 1500 mg or al tablet (20 sources) Start: 08-14-2020 End: 05-16-2021 Start: 08-14-2020 End: 05-16-2021 take 1 tablet by mouth at bedtime Calcium Carbonate 600 MG tablet Discontinued 600 mg PO AT BEDTIME August 14, 2020 1:00am May 16, 2021 11:12am cefdinir 300 mg oral capsule (7 sources) Cephalosporin Antibacterial Start: 09-03-2024 End: 09-21-2024 cephalexin 500 mg oral capsu le (20 sources) Cephalosporin Antibacterial Start: 12-14-2021 End: 12-29-2021 citalopram 20 mg oral tablet (20 sources) Serotonin Reuptake Inhibitor Start: 07-30-2014 End: 08-01-2017 clopidogrel 75 mg oral table t (20 sources) P2Y12 Platelet Inhibitor Start: 08-03-2024 End: 09-01-2024 Start: 07-01-2024 Plavix 75 mg o ral tablet Dose : 75 mg = 1 tab(s), Oral, qDay, # 30 tab(s), 3 Refill(s), Pharmacy: [facility], 190, cm, 06/27/24 12:50:00 EST, Height, kg, 06/27/24 12:50:00 EST, Dosing Weight Start Date: 07/01/24 Status: Ordered Quantity: 30.0 Unit: tab(s) Repeat number: 4 DULoxetine 60 mg delayed release oral capsule (20 sources) Serotonin and Norepinephrine Reuptake Inhibitor Start: 08-14-2020 End: 05-16-2021 Start: 08-14-2020 End: 05-16-2021 Duloxetine 60 mg capsule,del ayed release(DR/EC) Discontinued 90 mg PO DAILY September 12, 2020 10:38am May 16, 2021 11:13am Start: 08-14-2020 End: 05-16-2021 12 hr guaiFENesin 600 mg ext ended release oral tablet (20 sources) Start: 09-03-2024 End: 09-21-2024 Start: 07-25-2021 End: 10-05-2021 hydrOXYzine pamoate 25 mg or al capsule (16 sources) Antihistamine Start: 08-03-2024 End: 09-01-2024 Start: 08-03-2024 End: 11-18-2024 3 ml insulin detemir 100 unt /ml pen injector (20 sources) Insulin Analog Start: 05-05-2015 End: 08-01-2017 Start: 05-05-2015 End: 08-01-2017 Insulin Detemir U-100 100 UN ITS/ML insulin pen Discontinued 30 U SC TWICE A DAY May 05, 2015 1:00am August 01, 2017 9:27am Start: 05-05-2015 End: 08-01-2017 Insulin Detemir U-100 Discon tinued 30 UNITS SC TWICE A DAY May 05, 2015 1:00am August 01, 2017 9:27am Insulin Glargine (Lantus U-1 00 Insulin) 100 unit/mL Solution (18 sources) Start: 10-05-2021 End: 09-21-2024 Insulin Glargine (Lantus U-1 00 Insulin) 100 unit/mL Solution Discontinued 10 U SC 799October 05, 2021 12:00am September 21, 2024 2:37pm Start: 10-05-2021 Insulin Glargi ne (Lantus U-100 Insulin) 100 unit/mL Solution Active 10 U SC 799October 05, 2021 12:00am Start: 10-05-2021 Insulin Glargi ne (Lantus U-100 Insulin) 100 unit/mL Solution Active 10 UNIT SC 799October 04, 2021 11:00pm Start: 10-05-2021 Insulin Glargi ne (Lantus U-100 Insulin) 100 unit/mL Solution Active 10 UNIT SC 799October 05, 2021 12:00am ipratropium bromide 0.042 mg/actuat metered dose nasal spray (1 source) Anticholinergic Start: 06-27-2024 ipratropium 42 mcg/inh (0.06%) nasal spray 84 mcg Dose = 2 spray(s), use 1 to 2 (TWO) spays in the nose three times daily prior to meals to prevent nasal running OR prior to bed Start Date: 06/27/24 Status: Ordered Repeat number: 1 magnesium chloride 598 mg delayed release oral tablet (4 sources) Start: 11-18-2024 End: 12-25-2024 melatonin 3 mg oral capsule (8 sources) Start: 08-03-2024 End: 09-01-2024 Start: 08-03-2024 End: 09-01-2024 take 1 capsule by mouth at bedtime Melatonin 3 mg capsule Discontinued 3 mg PO BEDTIME August 03, 2024 1:00am September 01, 2024 8:13am Multivitamin tablet (5 sources) Start: 08-03-2024 End: 09-21-2024 Multivitamin tablet Disconti nued 1 {tbl} PO DAILY August 03, 2024 1:00am September 21, 2024 3:18pm Start: 08-03-2024 Multivitamin t ablet Active 1 {tbl} PO DAILY August 03, 2024 1:00am oxyCODONE hydrochloride 5 mg oral tablet (20 sources) Opioid Agonist Start: 09-17-2018 End: 09-24-2018 polyethylene glycol 3350 170 00 mg powder for oral solution (8 sources) Osmotic Laxative Start: 08-03-2024 End: 09-01-2024 pravastatin sodium 40 mg ora l tablet (20 sources) HMG-CoA Reductase Inhibitor Start: 07-30-2014 End: 08-03-2024 Start: 07-30-2014 End: 08-03-2024 take 1 tablet by mouth at bedtime Pravastatin 40 MG tablet Discontinued 40 mg PO AT BEDTIME July 30, 2014 1:00am August 03, 2024 9:19am cholesterol predniSONE 10 mg oral tablet (20 sources) Start: 02-16-2020 End: 03-02-2020 rivaroxaban 20 mg oral table t (20 sources) Factor Xa Inhibitor Start: 08-16-2019 End: 09-01-2024 Start: 08-16-2019 End: 08-03-2024 take 10 mg by mouth at dinner Rivaroxaban (Xarelto) 20 MG tablet Discontinued 10 mg PO WITH DINNER August 16, 2019 12:00am August 03, 2024 9:22am blood thinner sulfamethoxazole 800 mg / trimethoprim 160 mg oral tablet (20 sources) Dihydrofolate Reductase Inhibitor Antibacterial, Sulfonamide Antimicrobial Start: 12-14-2021 End: 12-29-2021 Start: 12-14-2021 End: 12-29-2021 Sulfamethoxazole-Trimethopri m (Bactrim Ds) 800-160 mg Tablet Discontinued 1 {tbl} PO TWICE A DAY December 14, 2021 12:00am December 29, 2021 1:53pm tramadol hydrochloride 25 MG Oral Tablet (20 sources) Opioid Agonist Start: 06-27-2024 traMADol 25 mg oral tablet Dose : 50 mg = 2 tab(s), Oral, q6h, PRN as needed for pain, not to exceed 400 mg/day, 0 Refill(s), 110.5 Start Date: 06/27/24 Status: Ordered Repeat number: 1 Start: 01-05-2022 End: 08-03-2024 7 actuat umeclidinium 0.0625 mg/actuat / vilanterol 0.025 mg/actuat dry powder inhaler (20 sources) Anticholinergic, beta2-Adrenergic Agonist Start: 08-14-2020 End: 05-16-2021 Start: 08-14-2020 End: 05-16-2021 take 1 dose by inhalation once daily as needed for wheezing Umeclidinium-Vilanterol 1 EACH blister with device Discontinued 1 NMA IH DAILY NEEDED as needed for Sob &/Or Wheezing August 14, 2020 1:00am May 16, 2021 11:11am warfarin sodium 10 mg oral t ablet (20 sources) Vitamin K Antagonist Start: 10-30-2015 End: 08-01-2017 Start: 10-30-2015 End: 08-01-2017 take 13 mg by mouth once daily Warfarin Discontinued 1 3 MG PO DAILY October 30, 2015 12:00am August 01, 2017 9:28am Problems Active Problems Problem Classification Problem Date Documented Da te Episodic/Chronic Abdominal pain (8 sources) Abdominal pain; Translations: [Unspecified abdominal pain] Onset: 09-25-2024 09-29-2024 Episodic Acute myocardial infarction (12 sources) Myocardial infarction; Translations: [Non-ST elevation (NSTEMI) myocardial infarction] Onset: 07-07-2024 07-05-2024 Chronic Cardiac arrest and ventricular fibrillation (12 sources) Cardiac arrest; Translations: [Cardiac arrest, cause unspecified] Onset: 07-07-2024 07-05-2024 Chronic Cardiac dysrhythmias (20 sources) Longstanding persistent atrial fibrillation; Translations: [Longstanding persistent atrial fibrillation] Onset: 09-10-2024 Chronic Cardiac dysrhythmias (1 source) Tachyarrhythmia ; Translations: [Tachycardia, unspecified] Episodic Chronic obstructive pulmonary disease and bronchiectasis (20 sources) Acute exacerbation of chronic obstructive airways disease; Translations: [Chronic obstructive pulmonary disease with (acute) exacerbation] Onset: 12-25-2024 Chronic Chronic ulcer of skin (20 sources) [...] Chronic Coronary atherosclerosis and other heart disease (15 sources) Coronary atherosclerosis; Translations: [Atherosclerotic heart disease of [place] coronary artery without angina pectoris] Onset: 12-01-2024 Chronic Coronary atherosclerosis and other heart disease (1 source) Presence of coronary angioplasty implant and graft; Translations: [Presence of coronary angioplasty implant and graft] Onset: 12-01-2024 Episodic Deficiency and other anemia (1 source) Iron deficiency anemia; Translations: [Iron deficiency anemia, unspecified] Episodic Deficiency and other anemia (11 sources) Anemia; Translations: [Anemia, unspecified] 07-05-2024 Episodic Diabetes mellitus with complications (1 source) Hyperglycemia due to type 2 diabetes mellitus; Translations: [Type 2 diabetes mellitus with hyperglycemia] Chronic Diabetes mellitus without complication (20 sources) [...] Translations: [Depression, unspecified] Chronic Nonspecific chest pain (18 sources) Chest pain; Translations: [Chest pain, unspecified] Onset: 09-07-2024 09-01-2024 Episodic Nutritional deficiencies (1 source) Vitamin D deficiency; Translations: [Vitamin D deficiency, unspecified] Chronic Open wounds of head; neck; and trunk (20 sources) Open wound of back, uncomplicated; Translations: [Unspecified open wound of unspecified back wall of thorax without penetration into thoracic cavity, initial encounter] Episodic Other and ill-defined heart disease (20 sources) Left ventricular diastolic dysfunction ; Translations: [Heart disease, unspecified] 02-29-2020 Chronic Other circulatory disease (11 sources) Low blood pressure; Translations: [Hypotension, unspecified] 07-05-2024 Episodic Other diseases of veins and lymphatics (20 sources) Venous insufficiency of leg; Translations: [Venous insufficiency (chronic) (peripheral)] 10-05-2021 Episodic Other diseases of veins and lymphatics (20 sources) Venous insufficiency (chronic) (peripheral); Translations: [Venous (peripheral) insufficiency, unspecified] Episodic Other endocrine disorders (1 source) Disorder of adrenal gland, unspecified; Translations: [Disorder of adrenal gland, unspecified] Onset: 01-01-2025 Chronic Other fractures (2 sources) Fracture of multiple ribs ; Translations: [Multiple fractures of ribs, right side, initial encounter for closed fracture] 07-15-2024 Episodic Other fractures (6 sources) Multiple fractures of ribs, right side, initial encounter for closed fracture; Translations: [Fracture of multiple ribs of right side] 07-15-2024 Episodic Other gastrointestinal disorders (1 source) Slow transit constipation; Translations: [Slow transit constipation] Episodic Other injuries and conditions due to external causes (18 sources) Delayed healing of wound; Translations: [Other injury of unspecified body region, subsequent encounter] 02-14-2023 Episodic Other injuries and conditions due to external causes (20 sources) Other injury of unspecified body region, subsequent encounter; Translations: [Open wound(s) (multiple) of unspecified site(s), complicated] 03-02-2023 Episodic Other lower respiratory disease (8 sources) Cough; Translations: [Cough] 03-30-2024 Episodic Other screening for suspected conditions (not mental disorders or infectious disease) (9 sources) CT of chest abnormal; Translations: [Abnormal findings on diagnostic imaging of other specified body structures] 11-10-2024 Chronic Other skin disorders (20 sources) Cyst of skin; Translations: [Follicular cyst [...] subcutaneous tissue, unspecified; Translations: [Sebaceous cyst] Episodic Residual codes; unclassified (3 sources) Other specified postprocedural states; Translations: [Personal history of surgery to other organs] Episodic Spondylosis; intervertebral disc disorders; other back problems (20 sources) Backache; Translations: [Dorsalgia, unspecified] 02-29-2020 Episodic Sprains and strains (16 sources) Strain of back muscle; Translations: [Strain of muscle, fascia and tendon of lower back, initial encounter] 06-02-2024 Episodic Thyroid disorders (1 source) Hypothyroidism; Translations: [Hypothyroidism, unspecified] Chronic Unclassified (2 sources) I25.10 - Atherosclerotic heart disease of [place] coronary artery without angina pectoris,Z95.5 - Presence of coronary angioplasty implant and graft,I47.20 - Ventricular tachycardia, unspecified Unclassified (4 sources) As previously scheduled. Unclassified (2 sources) Appointment is with Sanaz Angel Unclassified (2 sources) Ventricular tachycardia, unspecified; Translations: [Ventricular tachycardia, unspecified] Onset: 12-01-2024 Unclassified (1 source) Longstanding persistent atrial fibrillation; Translations: [Longstanding persistent atrial fibrillation] Onset: 07-07-2024 Unclassified (1 source) Low back pain, unspecified; Translations: [Low back pain, unspecified] Onset: 09-01-2024 Past or Other Problems Problem Classification Problem Date Documented Da te Episodic/Chronic Aspiration pneumonitis; food/vomitus (12 sources) Aspiration pneumonia; Translations: [Pneumonitis due to inhalation of food and vomit] Onset: 07-07-2024 07-05-2024 Episodic Deficiency and other anemia (1 source) Anemia, unspecified; Translations: [Anemia, unspecified] Onset: 07-07-2024 Episodic Other lower respiratory disease (1 source) Shortness of breath; Translations: [Shortness of breath] Onset: 09-01-2024 Episodic Other screening for suspected conditions (not mental disorders or infectious disease) (12 sources) Raised cardiac enzyme or marker; Translations: [Other specified abnormal findings of blood chemistry] Onset: 07-07-2024 07-05-2024 Episodic Pneumonia (except that caused by tuberculosis or sexually transmitted disease) (18 sources) Pneumonia; Translations: [Pneumonia, unspecified organism] Onset: 09-07-2024 09-01-2024 Episodic Respiratory failure; insufficiency; arrest (adult) (13 sources) Acute respiratory failure; Translations: [Acute respiratory failure with hypoxia] Onset: 06-27-2024 Episodic Septicemia (except in labor) (12 sources) Sepsis; Translations: [Sepsis, unspecified organism] Onset: 07-07-2024 07-05-2024 Episodic Syncope (14 sources) Syncope and collapse; Translations: [Syncope and collapse] Onset: 07-07-2024 Episodic Results Test Name Value Interpretation Reference Range Facility Pulmonary Visit Reporton 07- 25-2025 Pulmonary Visit Report Normal [facility] Cardiology Visit Reporton Cardiology Visit Report Normal [facility] Chest without Contraston Chest without Contrast Normal [facility] Absolute lymphocyte countOrd ered By: Osmar Brown on 11-18-2024 Lymphocytes Auto (Unsp spec) [#/Vol] 1.45 10*3/uL 0.83-4.51 [facility] Absolute neutrophil countOrd ered By: Osmar Brown on 11-18-2024 Neutrophils (Bld) [#/Vol] 4.4 10*3/uL 2.0-7.7 [facility] Activated partial thrombopla stin time (aPTT) in platelet poor plasma by coagulation aOrdered By: Judson Isabel on 11-18-2024 aPTT Coag (PPP) [Time] 39.8 s High 24.1-36.2 [facility] Anion gap in Serum or Plasma Ordered By: Osmar Brown on 11-18-2024 Anion gap [Moles/Vol] 11 mmol/L 5-15 [facility] Automated lymphocyte count a s percentage of total leukocytesOrdered By: Osmar Brown on 11-18-2024 Lymphocytes/100 WBC Auto (Unsp spec) 22.0 % 19-41 [facility] BUN/creatinine ratioOrdered By: Osmar Brown on 11-18-2024 Urea nitrogen/Creatinine [Mass ratio] 27.2 mg/mg High 10-20 [facility] Basic Metabolic Profile (BMP )on 11-18-2024 BUN/CRE 27.2 RATIO High 10-20 [facility] Comment on above: Performed By: #### L 100.0100, L500.2500 ####[facility] [address] [place], [address] Calcium [Mass/Vol] 9.2 mg/dL Normal 7.6-11.0 [facility] Comment on above: Performed By: #### L 100.0100, L500.2500 ####[facility] [address] [place], [address] Chloride [Moles/Vol] 102 mmol/L Normal 98-108 [facility] Comment on above: Performed By: #### L 100.0100, L500.2500 ####[facility] [address] [place], [address] CO2 [Moles/Vol] 22.1 mmol/L Normal 21.0-32.0 [facility] Comment on above: Performed By: #### L 100.0100, L500.2500 ####[facility] [address] [place], [address] Creatinine [Mass/Vol] 0.95 mg/dL Normal 0.70-1.20 [facility] Comment on above: Performed By: #### L 100.0100, L500.2500 ####[facility] [address] [place], [address] ECRCL 81.22 ml/min Normal 50-250 [facility] Comment on above: Performed By: #### L 100.0100, L500.2500 ####[facility] [address] [place], [address] GAP 11 Normal 5-15 [facility] Comment on above: Performed By: #### L 100.0100, L500.2500 ####[facility] [address] [place], [address] GFR/1.73 sq M.predicted among non-blacks MDRD (S/P/Bld) [Vol rate/Area] 83 mL/min/{1.73_m2} Normal >60 [facility] Comment on above: Result Comment: mL/m in/1.73m2 CKD-EPI Creatinine Equation (2020) Performed By: #### L 100.0100, L500.2500 ####[facility] [address] [place], [address] Glucose [Mass/Vol] 184 mg/dL High 70-99 [facility] Comment on above: Performed By: #### L 100.0100, L500.2500 ####[facility] [address] [place], [address] Potassium [Moles/Vol] 3.9 mmol/L Normal 3.3-5.1 [facility] Comment on above: Performed By: #### L 100.0100, L500.2500 ####[facility] [address] [place], [address] Sodium [Moles/Vol] 134 mmol/L Normal 133-145 [facility] Comment on above: Performed By: #### L 100.0100, L500.2500 ####[facility] [address] [place], [address] Urea nitrogen [Mass/Vol] 26 mg/dL High 4-19 [facility] Comment on above: Performed By: #### L 100.0100, L500.2500 ####[facility] [address] [place], [address] Basophil percentageOrdered B y: Osmar Brown on 11-18-2024 Basophils/100 WBC (Bld) 0.3 % 0-1 [facility] Bedside Glucoseon 11-18-2024 FINGERSTICK GLU 233 mg/dL High 74-106 [facility] Comment on above: Result Comment: MARIUM JERRYENT OF PATIENT CARE PER NURSING PROTOCOL Performed By: #### L 501.080 ####[facility] [address] [place], [address] CBC W/Diff, Automatedon 11-01 PLT EST ADEQUATE Normal ADEQ [facility] Comment on above: Performed By: #### L 100.0100, L500.2500 ####[facility] [address] [place], [address] Carbon dioxide, total [Moles /volume] in Central venous bloodOrdered By: Osmar Brown on 11-18-2024 CO2 [Moles/Vol] 22.1 mmol/L 21.0-32.0 [facility] Chloride assayOrdered By: Cassidy Brown on 11-18-2024 Chloride [Moles/Vol] 102 mmol/L 98-108 [facility] Discharge Instructionon 11-01 Discharge Instruction Normal [facility] Eosinophil percentageOrdered By: Osmar Brown on 11-18-2024 Eosinophils/100 WBC (Bld) 2.1 % 0-5 [facility] Erythrocyte distribution wid th ratioOrdered By: Osmar Brown on 11-18-2024 Erythrocyte distribution width (RBC) [Ratio] 13.8 % 11.6-14.6 [facility] Erythrocyte distribution wid th standard deviationOrdered By: Osmar Brown on 11-18-2024 Erythrocyte distribution width (RBC) [Ratio] 44.7 fl High 35.1-43.9 [facility] Glomerular filtration rate ( GFR) estimation/1.73 sq m using serum, plasma, or whole bOrdered By: Osmar Brown on 11-18-2024 GFR/1.73 sq M.predicted among non-blacks MDRD (S/P/Bld) [Vol rate/Area] 83 mL/min/{1.73_m2} >60 [facility] Comment on above: mL/min/1.73m2 CKD-EP I Creatinine Equation (2020) [facility] deOrdered By: Osmar Brown on 11-18-2024 Glucose [Mass/Vol] 233 mg/dL High 74-106 [facility] Comment on above: MANAGEMENT OF PATIEN T CARE PER NURSING PROTOCOL Hematocrit Auto (Bld) [Volum e fraction]Ordered By: Osmar Brown on 11-18-2024 Hematocrit (Bld) [Volume fraction] 34.5 % Low 40-54 [facility] Hemoglobin measurementOrdere d By: Osmar Brown on 11-18-2024 Hemoglobin (Bld) [Mass/Vol] 11.6 g/dL Low 13.0-16.5 [facility] Immature granulocytes/100 WB C Auto (Bld)Ordered By: Osmar Brown on 11-18-2024 Immature granulocytes/100 WBC (Bld) 0.500 % 0.0-0.9 [facility] Comment on above: IG% - Immature Granu locytes (promyelocytes, myelocytes and metamyelocytes) > 1% indicates that a LEFT SHIFT is Present. International normalized rat io (INR) calculationOrdered By: Judson Isabel on 11-18-2024 INR Coag (Bld) [Relative time] 1.7 {INR} [facility] MCV (mean corpuscular volume ) determinationOrdered By: Osmar Brown on 11-18-2024 MCV (RBC) [Entitic vol] 88.2 fL 80-94 [facility] Mean corpuscular hemoglobin (MCH) determinationOrdered By: Osmar Brown on 11-18-2024 MCH (RBC) [Entitic mass] 29.7 pg 27.0-32.0 [facility] Mean corpuscular hemoglobin concentration (MCHC) determinationOrdered By: Osmar Brown on 11-18-2024 MCHC (RBC) [Mass/Vol] 33.6 g/dL 32-36 [facility] Monocyte percentageOrdered B y: Osmar Brown on 11-18-2024 Monocytes/100 WBC (Bld) 8.5 % 0-10 [facility] Neutrophil percentageOrdered By: Osmar Brown on 11-18-2024 Neutrophils/100 WBC (Bld) 66.6 % 47-70 [facility] Nucleated red blood cell per centageOrdered By: Osmar Brown on 11-18-2024 Nucleated RBC/100 WBC (Bld) [Ratio] 0 % 0-5 [facility] Partial Thromboplast Timeon 11-18-2024 aPTT Coag (Bld) [Time] 39.8 s High 24.1-36.2 [facility] Comment on above: Performed By: #### L 300.4310, L300.3900 ####[facility] [address] [facility], [address] Platelet countOrdered By: Cassidy Brown on 11-18-2024 Platelet count TNP [facility] Comment on above: Test not performedPl ease note: For this sample, a platelet estimate is provided rather than a platelet count due to platelet clumping. Other parameters associated with this sample are not affected by platelet clumping. If a more accurate platelet count is required, a redraw of the patient will be necessary. Platelet estimateOrdered By: Osmar Brown on 11-18-2024 Platelets LM Ql (Bld) ADEQUATE ADEQ [facility] Potassium measurement (mass/ volume)Ordered By: Osmar Brown on 11-18-2024 Potassium (Unsp spec) [Mass/Vol] 3.9 mmol/L 3.3-5.1 [facility] Prothrombin Time w/INRon INR Coag (PPP) [Relative time] 1.7 {INR} Normal [facility] Comment on above: Performed By: #### L 300.4310, L300.3900 ####[facility] [address] [place], [address] PT Coag (PPP) [Time] 20.0 s High 11.7-14.9 [facility] Comment on above: Performed By: #### L 300.4310, L300.3900 ####[facility] [address] [place], [address] Prothrombin timeOrdered By: Judson Isabel on 11-18-2024 PT Coag (PPP) [Time] 20.0 s High 11.7-14.9 [facility] RBC Auto (Bld) [#/Vol]Ordere d By: Osmar Brown on 11-18-2024 RBC (Bld) [#/Vol] 3.91 10*6/uL Low 4.6-6.2 [facility] Serum creatinine measurement (mass/volume)Ordered By: Osmar Brown on 11-18-2024 Creatinine [Mass/Vol] 0.95 mg/dL 0.70-1.20 [facility] Serum glucose measurement (m ass/volume)Ordered By: Osmar Brown on 11-18-2024 Glucose [Mass/Vol] 184 mg/dL High 70-99 [facility] Serum or plasma calcium shweta urement (mass/volume)Ordered By: Osmar Brown on 11-18-2024 Calcium [Mass/Vol] 9.2 mg/dL 7.6-11.0 [facility] Serum or plasma urea nitroge n measurement (mass/volume)Ordered By: Osmar Brown on 11-18-2024 Urea nitrogen [Mass/Vol] 26 mg/dL High 4-19 [facility] Sodium levelOrdered By: Lloyd Brown on 11-18-2024 Sodium [Moles/Vol] 134 mmol/L 133-145 [facility] White blood cell (WBC) count Ordered By: Osmar Brown on 11-18-2024 WBC (Bld) [#/Vol] 6.6 10*3/uL 4.4-11.0 [facility] Basic Metabolic Profile (BMP )on 11-17-2024 BUN/CRE 22.9 RATIO High 10-20 [facility] Comment on above: Performed By: #### L 501.9520, L500.2500, L100.0100 ####[facility] [address] [place], [address] Calcium [Mass/Vol] 9.0 mg/dL Normal 7.6-11.0 [facility] Comment on above: Performed By: #### L 501.9520, L500.2500, L100.0100 ####[facility] [address] [place], [address] Chloride [Moles/Vol] 101 mmol/L Normal 98-108 [facility] Comment on above: Performed By: #### L [id number], L500.2500, L100.0100 ####[facility] [address] [place], [address] CO2 [Moles/Vol] 24.1 mmol/L Normal 21.0-32.0 [facility] Comment on above: Performed By: #### L 501.9520, L500.2500, L100.0100 ####[facility] [address] [place], [address] Creatinine [Mass/Vol] 0.98 mg/dL Normal 0.70-1.20 [facility] Comment on above: Performed By: #### L 501.9520, L500.2500, L100.0100 ####[facility] [address] [place], [address] ECRCL 78.73 ml/min Normal 50-250 [facility] Comment on above: Performed By: #### L 501.9520, L500.2500, L100.0100 ####[facility] [address] [place], [address] GAP 10 Normal 5-15 [facility] Comment on above: Performed By: #### L 501.9520, L500.2500, L100.0100 ####[facility] [address] [place], [address] GFR/1.73 sq M.predicted among non-blacks MDRD (S/P/Bld) [Vol rate/Area] 80 mL/min/{1.73_m2} Normal >60 [facility] Comment on above: Result Comment: mL/m in/1.73m2 CKD-EPI Creatinine Equation (2020) Performed By: #### L 501.9520, L500.2500, L100.0100 ####[facility] [address] [place], [address] Glucose [Mass/Vol] 183 mg/dL High 70-99 [facility] Comment on above: Performed By: #### L 501.9520, L500.2500, L100.0100 ####[facility] [address] [place], [address] Potassium [Moles/Vol] 3.8 mmol/L Normal 3.3-5.1 [facility] Comment on above: Performed By: #### L [id number], L500.2500, L100.0100 ####[facility] [address] [place], [address] Sodium [Moles/Vol] 135 mmol/L Normal 133-145 [facility] Comment on above: Performed By: #### L 501.9520, L500.2500, L100.0100 ####[facility] [address] [place], [address] Urea nitrogen [Mass/Vol] 22 mg/dL High 4-19 [facility] Comment on above: Performed By: #### L 501.9520, L500.2500, L100.0100 ####[facility] [address] [place], [address] Bedside Glucoseon 11-17-2024 FINGERSTICK GLU 180 mg/dL High 74-106 [facility] Comment on above: Result Comment: MARIUM GEMENT OF PATIENT CARE PER NURSING PROTOCOL Performed By: #### L 501.080 ####[facility] [address] [place], [address] FINGERSTICK GLU 351 mg/dL High 74-106 [facility] Comment on above: Result Comment: MARIUM GEMENT OF PATIENT CARE PER NURSING PROTOCOL Performed By: #### L 501.080 ####[facility] [address] [place], [address] FINGERSTICK GLU 201 mg/dL High 74-106 [facility] Comment on above: Result Comment: MARIUM GEMENT OF PATIENT CARE PER NURSING PROTOCOL Performed By: #### L 501.080 ####[facility] [address] [place], [address] Blood manual differential co mment interpretation (narrative result)Ordered By: Osmar Brown on 11-17-2024 Manual differential comment Royer (Bld) [Interp] SCANNED [facility] CBC W/Diff, Automatedon 11-01 PLT EST ADEQUATE Normal ADEQ [facility] Comment on above: Performed By: #### L 501.9520, L500.2500, L100.0100 ####[facility] [address] [place], [address] PLT MORPH CLUMPED Normal [facility] Comment on above: Performed By: #### L 501.9520, L500.2500, L100.0100 ####[facility] [address] [place], [address] SMEAR COMMENT SCANNED Normal [facility] Comment on above: Performed By: #### L 501.9520, L500.2500, L100.0100 ####[facility] [address] [place], [address] Electrocardiogram reportOrde red By: Judson Isabel on 11-17-2024 EKG study [facility] Work Phone: Magnesiumon 11-17-2024 Magnesium [Mass/Vol] 1.8 mg/dL Normal 1.5-2.2 [facility] Comment on above: Performed By: #### L 501.5200 ####[facility] [address] [place], [address] Magnesium measurement (mass/ volume)Ordered By: Osmar Brown on 11-17-2024 Magnesium (Unsp spec) [Mass/Vol] 1.8 mg/dL 1.5-2.2 [facility] Mean platelet volume determi nationOrdered By: Osmar Brown on 11-17-2024 Mean platelet volume determination TNP [facility] Comment on above: Test not performed Partial Thromboplast Timeon 11-17-2024 aPTT Coag (Bld) [Time] 70.1 s High 24.1-36.2 [facility] Comment on above: Performed By: #### L 300.4310 ####[facility] [address] [place], [address] aPTT Coag (Bld) [Time] 72.7 s High 24.1-36.2 [facility] Comment on above: Performed By: #### L 300.4310 ####[facility] [address] [place], [address] Platelet morphologyOrdered B y: Osmar Brown on 11-17-2024 Platelet morphology finding Nom (Bld) CLUMPED [facility] T4 Free Directon 11-17-2024 T4 FREE DIRECT 1.50 ng/dL High 0.76-1.46 [facility] Comment on above: Performed By: #### L 506.0400 ####[facility] [address] [place], [address] T4 freeOrdered By: Osmar Ordonez hand on 11-17-2024 Free T4 [Mass/Vol] 1.50 ng/dL High 0.76-1.46 [facility] TSH DL <= 0.005 mIU/L QnOrde red By: Osmar Brown on 11-17-2024 TSH Qn 0.228 uIU/mL Low 0.300-4.20 0 [facility] Thyroid Stim Hormone (TSH)on 11-17-2024 TSH 0.228 uIU/mL Low 0.300-4.20 0 [facility] Comment on above: Performed By: #### L 501.9520, L500.2500, L100.0100 ####[facility] [address] [place], [address] Basic Metabolic Profile (BMP )on 11-16-2024 BUN/CRE 25.8 RATIO High 10-20 [facility] Comment on above: Performed By: #### L 100.0100, L500.2500 ####[facility] [address] [place], [address] Calcium [Mass/Vol] 9.0 mg/dL Normal 7.6-11.0 [facility] Comment on above: Performed By: #### L 100.0100, L500.2500 ####[facility] [address] [place], [address] Chloride [Moles/Vol] 101 mmol/L Normal 98-108 [facility] Comment on above: Performed By: #### L 100.0100, L500.2500 ####[facility] [address] [place], [address] CO2 [Moles/Vol] 22.7 mmol/L Normal 21.0-32.0 [facility] Comment on above: Performed By: #### L 100.0100, L500.2500 ####[facility] [address] [place], [address] Creatinine [Mass/Vol] 0.89 mg/dL Normal 0.70-1.20 [facility] Comment on above: Performed By: #### L 100.0100, L500.2500 ####[facility] [address] [place], [address] ECRCL 86.69 ml/min Normal 50-250 [facility] Comment on above: Performed By: #### L 100.0100, L500.2500 ####[facility] [address] [place], [address] GAP 13 Normal 5-15 [facility] Comment on above: Performed By: #### L 100.0100, L500.2500 ####[facility] [address] [place], [address] GFR/1.73 sq M.predicted among non-blacks MDRD (S/P/Bld) [Vol rate/Area] 89 mL/min/{1.73_m2} Normal >60 [facility] Comment on above: Result Comment: mL/m in/1.73m2 CKD-EPI Creatinine Equation (2020) Performed By: #### L 100.0100, L500.2500 ####[facility] [address] [place], [address] Glucose [Mass/Vol] 201 mg/dL High 70-99 [facility] Comment on above: Performed By: #### L 100.0100, L500.2500 ####[facility] [address] [place], [address] Potassium [Moles/Vol] 3.4 mmol/L Normal 3.3-5.1 [facility] Comment on above: Performed By: #### L 100.0100, L500.2500 ####[facility] [address] [place], [address] Sodium [Moles/Vol] 137 mmol/L Normal 133-145 [facility] Comment on above: Performed By: #### L 100.0100, L500.2500 ####[facility] [address] [place], [address] Urea nitrogen [Mass/Vol] 23 mg/dL High 4-19 [facility] Comment on above: Performed By: #### L 100.0100, L500.2500 ####[facility] [address] [place], [address] Bedside Glucoseon 11-16-2024 FINGERSTICK GLU 150 mg/dL High 74-106 [facility] Comment on above: Result Comment: MARIUM GEMENT OF PATIENT CARE PER NURSING PROTOCOL Performed By: #### L 501.080 ####[facility] [address] [place], [address] FINGERSTICK GLU 104 mg/dL Normal 74-106 [facility] Comment on above: Result Comment: MARIUM GEMENT OF PATIENT CARE PER NURSING PROTOCOL Performed By: #### L 501.080 ####[facility] [address] [place], [address] FINGERSTICK GLU 229 mg/dL High 74-106 [facility] Comment on above: Result Comment: MARIUM GEMENT OF PATIENT CARE PER NURSING PROTOCOL Performed By: #### L 501.080 ####[facility] [address] [place], [address] FINGERSTICK GLU 214 mg/dL High 74-106 [facility] Comment on above: Result Comment: MARIUM GEMENT OF PATIENT CARE PER NURSING PROTOCOL Performed By: #### L 501.080 ####[facility] [address] [place], [address] CBC W/Diff, Automatedon - PLT EST ADEQUATE Normal ADEQ [facility] Comment on above: Performed By: #### L 100.0100, L500.2500 ####[facility] [address] [place], [address] SMEAR COMMENT SCANNED Normal [facility] Comment on above: Performed By: #### L 100.0100, L500.2500 ####[facility] [address] [place], [address] Limited echocardiogram repor tOrdered By: Judson Isabel on 11-16-2024 Study report [facility] Work Phone: [phone] Partial Thromboplast Timeon 11-16-2024 aPTT Coag (Bld) [Time] 51.4 s High 24.1-36.2 [facility] Comment on above: Performed By: #### L 300.4310 ####[facility] [address] [place], [address] aPTT Coag (Bld) [Time] 37.8 s High 24.1-36.2 [facility] Comment on above: Performed By: #### L 300.3900, L300.4310 ####[facility] [address] [place], [address] Prothrombin Time w/INRon INR Coag (PPP) [Relative time] 1.4 {INR} Normal [facility] Comment on above: Performed By: #### L 300.3900, L300.4310 ####[facility] [address] [place], [address] PT Coag (PPP) [Time] 17.2 s High 11.7-14.9 [facility] Comment on above: Performed By: #### L 300.3900, L300.4310 ####[facility] [facility] [address] [place], [address] Basic Metabolic Profile (BMP )on 11-15-2024 BUN/CRE 28.9 RATIO High 10-20 [facility] Comment on above: Performed By: #### L 500.2500, L100.0100 ####[facility] [address] [place], [address] Calcium [Mass/Vol] 9.3 mg/dL Normal 7.6-11.0 [facility] Comment on above: Performed By: #### L 500.2500, L100.0100 ####[facility] [address] [place], [address] Chloride [Moles/Vol] 100 mmol/L Normal 98-108 [facility] Comment on above: Performed By: #### L 500.2500, L100.0100 ####[facility] [address] [place], [address] CO2 [Moles/Vol] 22.0 mmol/L Normal 21.0-32.0 [facility] Comment on above: Performed By: #### L 500.2500, L100.0100 ####[facility] [address] [place], [address] Creatinine [Mass/Vol] 0.96 mg/dL Normal 0.70-1.20 [facility] Comment on above: Performed By: #### L 500.2500, L100.0100 ####[facility] [address] [place], [address] ECRCL 80.37 ml/min Normal 50-250 [facility] Comment on above: Performed By: #### L 500.2500, L100.0100 ####[facility] [address] [place], [address] GAP 14 Normal 5-15 [facility] Comment on above: Performed By: #### L 500.2500, L100.0100 ####[facility] [address] [place], [address] GFR/1.73 sq M.predicted among non-blacks MDRD (S/P/Bld) [Vol rate/Area] 82 mL/min/{1.73_m2} Normal >60 [facility] Comment on above: Result Comment: mL/m in/1.73m2 CKD-EPI Creatinine Equation (2020) Performed By: #### L 500.2500, L100.0100 ####[facility] [address] [place], [address] Glucose [Mass/Vol] 195 mg/dL High 70-99 [facility] Comment on above: Performed By: #### L 500.2500, L100.0100 ####[facility] [address] [place], [address] Potassium [Moles/Vol] 3.7 mmol/L Normal 3.3-5.1 [facility] Comment on above: Performed By: #### L 500.2500, L100.0100 ####[facility] [address] [place], [address] Sodium [Moles/Vol] 135 mmol/L Normal 133-145 [facility] Comment on above: Performed By: #### L 500.2500, L100.0100 ####[facility] [address] [place], [address] Urea nitrogen [Mass/Vol] 28 mg/dL High 4-19 [facility] Comment on above: Performed By: #### L 500.2500, L100.0100 ####[facility] [address] [place], [address] Bedside Glucoseon 11-15-2024 FINGERSTICK GLU 194 mg/dL High 74-106 [facility] Comment on above: Result Comment: MARIUM ARRIAZA OF PATIENT CARE PER NURSING PROTOCOL Performed By: #### L 501.080 ####[facility] [address] [place], [address] FINGERSTICK GLU 192 mg/dL High 74-106 [facility] Comment on above: Result Comment: MARIUM GEMENT OF PATIENT CARE PER NURSING PROTOCOL Performed By: #### L 501.080 ####[facility] [address] [place], [address] FINGERSTICK GLU 239 mg/dL High 74-106 [facility] Comment on above: Result Comment: MARIUM GEMENT OF PATIENT CARE PER NURSING PROTOCOL Performed By: #### L 501.080 ####[facility] [address] [place], [address] FINGERSTICK GLU 198 mg/dL High -106 [facility] Comment on above: Result Comment: MARIUM GEMENT OF PATIENT CARE PER NURSING PROTOCOL Performed By: #### L 501.080 ####[facility] [address] [place], [address] CBC W/Diff, Automatedon - PLT EST ADEQUATE Normal ADEQ [facility] Comment on above: Performed By: #### L 500.2500, L100.0100 ####[facility] [address] [place], [address] Echo Limited w/Contraston Echo Limited w/Contrast Normal [facility] Prothrombin Time w/INRon INR Coag (PPP) [Relative time] 1.6 {INR} Normal [facility] Comment on above: Performed By: #### L 300.3900 ####[facility] [address] [place], [address] PT Coag (PPP) [Time] 19.8 s High 11.7-14.9 [facility] Comment on above: Performed By: #### L 300.3900 ####[facility] [address] [place], [address] 12 Lead EKGon 11-14-2024 12 Lead EKG Normal [facility] 12 Lead EKG Normal [facility] Basic Metabolic Profile (BMP )on 11-14-2024 BUN/CRE 22.6 RATIO High 10-20 [facility] Comment on above: Performed By: #### L 501.4021, L100.0100, L500.2500 ####[facility] [address] [place], [address] Calcium [Mass/Vol] 9.3 mg/dL Normal 7.6-11.0 [facility] Comment on above: Performed By: #### L 501.4021, L100.0100, L500.2500 ####[facility] [address] [place], [address] Chloride [Moles/Vol] 100 mmol/L Normal 98-108 [facility] Comment on above: Performed By: #### L 501.4021, L100.0100, L500.2500 ####[facility] [address] [place], [address] CO2 [Moles/Vol] 22.0 mmol/L Normal 21.0-32.0 [facility] Comment on above: Performed By: #### L 501.4021, L100.0100, L500.2500 ####[facility] [address] [place], [address] Creatinine [Mass/Vol] 1.09 mg/dL Normal 0.70-1.20 [facility] Comment on above: Performed By: #### L 501.4021, L100.0100, L500.2500 ####[facility] [address] [place], [address] ECRCL 74.75 ml/min Normal 50-250 [facility] Comment on above: Performed By: #### L 501.4021, L100.0100, L500.2500 ####[facility] [address] [place], [address] GAP 14 Normal 5-15 [facility] Comment on above: Performed By: #### L 501.4021, L100.0100, L500.2500 ####[facility] [address] [place], [address] GFR/1.73 sq M.predicted among non-blacks MDRD (S/P/Bld) [Vol rate/Area] 70 mL/min/{1.73_m2} Normal >60 [facility] Comment on above: Result Comment: mL/m in/1.73m2 CKD-EPI Creatinine Equation (2020) Performed By: #### L 501.4021, L100.0100, L500.2500 ####[facility] [address] [place], [address] Glucose [Mass/Vol] 230 mg/dL High 70-99 [facility] Comment on above: Performed By: #### L 501.4021, L100.0100, L500.2500 ####[facility] [address] [place], [address] Potassium [Moles/Vol] 3.3 mmol/L Normal 3.3-5.1 [facility] Comment on above: Performed By: #### L 501.4021, L100.0100, L500.2500 ####[facility] [address] [place], [address] Sodium [Moles/Vol] 137 mmol/L Normal 133-145 [facility] Comment on above: Performed By: #### L 501.4021, L100.0100, L500.2500 ####[facility] [address] [place], [address] Urea nitrogen [Mass/Vol] 25 mg/dL High 4-19 [facility] Comment on above: Performed By: #### L 501.4021, L100.0100, L500.2500 ####[facility] [address] [place], [address] Bedside Glucoseon 11-14-2024 FINGERSTICK GLU 121 mg/dL High 74-106 [facility] Comment on above: Result Comment: MARIUM GEMENT OF PATIENT CARE PER NURSING PROTOCOL Performed By: #### L 501.080 ####[facility] [address] [place], [address] FINGERSTICK GLU 213 mg/dL High 74-106 [facility] Comment on above: Result Comment: MARIUM GEMENT OF PATIENT CARE PER NURSING PROTOCOL Performed By: #### L 501.080 ####[facility] [address] [place], [address] CBC W/Diff, Automatedon 11-01 PLT EST ADEQUATE Normal ADEQ [facility] Comment on above: Performed By: #### L 501.4021, L100.0100, L500.2500 ####[facility] [address] [place], [address] Chest 1 View (Portable)on Chest 1 View (Portable) Normal [facility] Consultation - Cardiologyon 11-14-2024 Consultation - Cardiology Normal [facility] Emergency Department Summary on 11-14-2024 Emergency Department Summary Normal [facility] H AND P Exam - Hospitaliston 11-14-2024 H&P Exam - Hospitalist Normal [facility] L499.0042on 11-14-2024 Trop T High Sen 77 ng/L Invalid Interpretation Code <=22 [facility] Comment on above: Result Comment: Crit ical Result(s) Called at: 11/14/2024-13:04 by: Nitin Rice.??Results read back by same. Performed By: #### L 499.0042 ####[facility] [address] [place], [address] L499.0043on 11-14-2024 Trop T High Sen 165 ng/L Invalid Interpretation Code <=22 [facility] Comment on above: Result Comment: Crit ical Result(s) Called at: 1631 by: SLOAN FONSECA??Results read back by same. Performed By: #### L 499.0043 ####[facility] [address] [place], [address] L501.4021on 11-14-2024 Trop T High Sen 28 ng/L High <=22 [facility] Comment on above: Performed By: #### L 501.4021, L100.0100, L500.2500 ####[facility] [address] [place], [address] Magnesiumon 11-14-2024 Magnesium [Mass/Vol] 1.7 mg/dL Normal 1.5-2.2 [facility] Comment on above: Performed By: #### L 501.5200 ####[facility] [address] [place], [address] Troponin T.cardiac [Mass/vol ume] in Serum or Plasma by High sensitivity methodOrdered By: Hoang Robertson on 11-14-2024 Troponin T.cardiac High sensitivity method [Mass/Vol] 165 ng/L High <22 [facility] Comment on above: Critical Result(s) C alled at: 1631 by: SLOAN IRIZARRY Results read back by same. Troponin T.cardiac High sensitivity method [Mass/Vol] 77 ng/L High <22 [facility] Comment on above: Critical Result(s) C alled at: 11/14/2024-13:04 by: Jean Gaston to Meghan Rice. Results read back by same. Troponin T.cardiac High sensitivity method [Mass/Vol] 28 ng/L High <22 [facility] Comment on above: Delta: 23 on 5-1645 Pulmonary Visit Reporton Pulmonary Visit Report Normal [facility] Abdomen Limitedon 05-14-2025 Abdomen Limited Normal [facility] Absolute lymphocyte countOrd ered By: Tati Caballero on 09-21-2024 Lymphocytes Auto (Unsp spec) [#/Vol] 1.49 10*3/uL 0.83-4.51 [facility] Absolute neutrophil countOrd ered By: Tati Caballero on 09-21-2024 Neutrophils (Bld) [#/Vol] 2.2 10*3/uL 2.0-7.7 [facility] Anion gap in Serum or Plasma Ordered By: Tati Caballero on 09-21-2024 Anion gap [Moles/Vol] 8 mmol/L 5- [facility] Automated lymphocyte count a s percentage of total leukocytesOrdered By: Tati Caballero on 09-21-2024 Lymphocytes/100 WBC Auto (Unsp spec) 34.3 % - [facility] BUN/creatinine ratioOrdered By: Taticamryn Caballero on 09-21-2024 Urea nitrogen/Creatinine [Mass ratio] 20.3 mg/mg High 10- [facility] Basophil percentageOrdered B y: Tati Caballero on 09-21-2024 Basophils/100 WBC (Bld) 0.2 % 0-1 [facility] Bilirubin Test strip Ql (U)O rdered By: Tati Caballero on 09-21-2024 Bilirubin Ql (U) Negative Negative [facility] Bilirubin, totalOrdered By: Tati Caballero on 09-21-2024 Bilirubin [Mass/Vol] 0.60 mg/dL 0.00-1.30 [facility] CBC W/Diff, Automatedon 09-02 MPV TNP Normal 6.2-12.0 [facility] Comment on above: Performed By: #### L 501.2450, L100.0100, L500.4050 ####[facility] [address] [place], [address] Absolute Lymph 1.49 X10 3/uL Normal 0.83-4.51 [facility] Comment on above: Performed By: #### L 501.2450, L100.0100, L500.4050 ####[facility] [address] [place], [address] Absolute Neut 2.2 X10 3/uL Normal 2.0-7.7 [facility] Comment on above: Performed By: #### L 501.2450, L100.0100, L500.4050 ####[facility] [address] [place], [address] Basophils/100 WBC (Bld) 0.2 % Normal 0-1 [facility] Comment on above: Performed By: #### L 501.2450, L100.0100, L500.4050 ####[facility] [address] [place], [address] Eosinophils/100 WBC (Bld) 2.5 % Normal 0-5 [facility] Comment on above: Performed By: #### L 501.2450, L100.0100, L500.4050 ####[facility] [address] [place], [address] Erythrocyte distribution width (RBC) [Ratio] 12.9 % Normal 11.6-14.6 [facility] Comment on above: Performed By: #### L 501.2450, L100.0100, L500.4050 ####[facility] [address] [place], [address] Hematocrit (Bld) [Volume fraction] 34.5 % Low 40-54 [facility] Comment on above: Performed By: #### L 501.2450, L100.0100, L500.4050 ####[facility] [address] [place], [address] Hemoglobin (Bld) [Mass/Vol] 11.3 g/dL Low 13.0-16.5 [facility] Comment on above: Performed By: #### L 501.2450, L100.0100, L500.4050 ####[facility] [address] [place], [address] IG% 0.200 Normal 0.0-0.9 [facility] Comment on above: Result Comment: IG% - Immature Granulocytes (promyelocytes, myelocytes andmetamyelocytes) > 1% indicates that a LEFT SHIFT is Present. Performed By: #### L 501.2450, L100.0100, L500.4050 ####[facility] [address] [place], [address] Lymphocytes/100 WBC (Bld) 34.3 % Normal 19-41 [facility] Comment on above: Performed By: #### L 501.2450, L100.0100, L500.4050 ####[facility] [address] [place], [address] MCH (RBC) [Entitic mass] 30.1 pg Normal 27.0-32.0 [facility] Comment on above: Performed By: #### L 501.2450, L100.0100, L500.4050 ####[facility] [address] [place], [address] MCHC (RBC) [Mass/Vol] 32.8 g/dL Normal 32-36 [facility] Comment on above: Performed By: #### L 501.2450, L100.0100, L500.4050 ####[facility] [address] [place], [address] MCV (RBC) [Entitic vol] 92.0 fL Normal 80-94 [facility] Comment on above: Performed By: #### L 501.2450, L100.0100, L500.4050 ####[facility] [address] [place], [address] Monocytes/100 WBC (Bld) 12.4 % High 0-10 [facility] Comment on above: Performed By: #### L 501.2450, L100.0100, L500.4050 ####[facility] [address] [place], [address] Neutrophils/100 WBC (Bld) 50.4 % Normal 47-70 [facility] Comment on above: Performed By: #### L 501.2450, L100.0100, L500.4050 ####[facility] [address] [place], [address] Nucleated RBC (Bld) [#/Vol] 0 10*3/uL Normal 0-5 [facility] Comment on above: Performed By: #### L 501.2450, L100.0100, L500.4050 ####[facility] [address] [place], [address] RBC (Bld) [#/Vol] 3.75 10*6/uL Low 4.6-6.2 [facility] Comment on above: Performed By: #### L 501.2450, L100.0100, L500.4050 ####[facility] [address] [place], [address] RDW SD 43.1 fl Normal 35.1-43.9 [facility] Comment on above: Performed By: #### L 501.2450, L100.0100, L500.4050 ####[facility] [address] [place], [address] WBC (Bld) [#/Vol] 4.4 10*3/uL Normal 4.4-11.0 [facility] Comment on above: Performed By: #### L 501.2450, L100.0100, L500.4050 ####[facility] [address] [place], [address] Carbon dioxide, total [Moles /volume] in Central venous bloodOrdered By: Tati Caballero on 09-21-2024 CO2 [Moles/Vol] 25.9 mmol/L 21.0-32.0 [facility] Chloride assayOrdered By: Diamond Caballero on 09-21-2024 Chloride [Moles/Vol] 101 mmol/L 98-108 [facility] Comprehensive Metabolic Prof ilon 09-21-2024 Albumin [Mass/Vol] 3.6 g/dL Normal 3.4-4.8 [facility] Comment on above: Performed By: #### L 501.2450, L100.0100, L500.4050 ####[facility] [address] [place], [address] Albumin/Globulin [Mass ratio] 0.9 {ratio} Normal 0.9-2.4 [facility] Comment on above: Performed By: #### L 501.2450, L100.0100, L500.4050 ####[facility] [address] [place], [address] ALK PHOS 132 U/L High 40-129 [facility] Comment on above: Performed By: #### L 501.2450, L100.0100, L500.4050 ####[facility] [address] [place], [address] ALT [Catalytic activity/Vol] 13 U/L Normal <=46 [facility] Comment on above: Performed By: #### L 501.2450, L100.0100, L500.4050 ####[facility] [address] [place], [address] AST [Catalytic activity/Vol] 24 U/L Normal <=37 [facility] Comment on above: Performed By: #### L 501.2450, L100.0100, L500.4050 ####[facility] [address] [place], [address] Bilirubin [Mass/Vol] 0.60 mg/dL Normal 0.00-1.30 [facility] Comment on above: Performed By: #### L 501.2450, L100.0100, L500.4050 ####[facility] [address] [place], [address] BUN/CRE 20.3 RATIO High 10-20 [facility] Comment on above: Performed By: #### L 501.2450, L100.0100, L500.4050 ####[facility] [address] [place], [address] Calcium [Mass/Vol] 9.0 mg/dL Normal 7.6-11.0 [facility] Comment on above: Performed By: #### L 501.2450, L100.0100, L500.4050 ####[facility] [address] [place], [address] Chloride [Moles/Vol] 101 mmol/L Normal 98-108 [facility] Comment on above: Performed By: #### L 501.2450, L100.0100, L500.4050 ####[facility] [address] [place], [address] CO2 [Moles/Vol] 25.9 mmol/L Normal 21.0-32.0 [facility] Comment on above: Performed By: #### L 501.2450, L100.0100, L500.4050 ####[facility] [address] [place], [address] Creatinine [Mass/Vol] 0.96 mg/dL Normal 0.70-1.20 [facility] Comment on above: Performed By: #### L 501.2450, L100.0100, L500.4050 ####[facility] [address] [place], [address] GAP 8 Normal 5-15 [facility] Comment on above: Performed By: #### L 501.2450, L100.0100, L500.4050 ####[facility] [address] [place], [address] GFR/1.73 sq M.predicted among non-blacks MDRD (S/P/Bld) [Vol rate/Area] 82 mL/min/{1.73_m2} Normal >60 [facility] Comment on above: Result Comment: mL/m in/1.73m2 CKD-EPI Creatinine Equation (2020) Performed By: #### L 501.2450, L100.0100, L500.4050 ####[facility] [address] [place], [address] Globulin (S) [Mass/Vol] 3.9 g/dL Normal 2.2-4.2 [facility] Comment on above: Performed By: #### L 501.2450, L100.0100, L500.4050 ####[facility] [address] [place], [address] Glucose [Mass/Vol] 173 mg/dL High 70-99 [facility] Comment on above: Performed By: #### L 501.2450, L100.0100, L500.4050 ####[facility] [address] [place], [address] Potassium [Moles/Vol] 4.2 mmol/L Normal 3.3-5.1 [facility] Comment on above: Performed By: #### L 501.2450, L100.0100, L500.4050 ####[facility] [address] [place], [address] Sodium [Moles/Vol] 136 mmol/L Normal 133-145 [facility] Comment on above: Performed By: #### L 501.2450, L100.0100, L500.4050 ####[facility] [address] [place], [address] T PROT 7.5 g/dL Normal 5.9-8.4 [facility] Comment on above: Performed By: #### L 501.2450, L100.0100, L500.4050 ####[facility] [address] [place], [address] Urea nitrogen [Mass/Vol] 19 mg/dL Normal 4-19 [facility] Comment on above: Performed By: #### L 501.2450, L100.0100, L500.4050 ####[facility] [address] [place], [address] Emergency Department Summary on 09-21-2024 Emergency Department Summary Normal [facility] Eosinophil percentageOrdered By: Tati Caballero on 09-21-2024 Eosinophils/100 WBC (Bld) 2.5 % 0-5 [facility] Erythrocyte distribution wid th ratioOrdered By: Tati Caballero on 09-21-2024 Erythrocyte distribution width (RBC) [Ratio] 12.9 % 11.6-14.6 [facility] Erythrocyte distribution wid th standard deviationOrdered By: Tati Caballero on 09-21-2024 Erythrocyte distribution width (RBC) [Ratio] 43.1 fl 35.1-43.9 [facility] Glomerular filtration rate ( GFR) estimation/1.73 sq m using serum, plasma, or whole bOrdered By: Tati Caballero on 09-21-2024 GFR/1.73 sq M.predicted among non-blacks MDRD (S/P/Bld) [Vol rate/Area] 82 mL/min/{1.73_m2} >60 [facility] Comment on above: mL/min/1.73m2 CKD-EP I Creatinine Equation (2020) Hematocrit Auto (Bld) [Volum e fraction]Ordered By: Tati Caballero on 09-21-2024 Hematocrit (Bld) [Volume fraction] 34.5 % Low 40-54 [facility] Hemoglobin measurementOrdere d By: Tati Caballero on 09-21-2024 Hemoglobin (Bld) [Mass/Vol] 11.3 g/dL Low 13.0-16.5 [facility] Immature granulocytes/100 WB C Auto (Bld)Ordered By: Tati Caballero on 09-21-2024 Immature granulocytes/100 WBC (Bld) 0.200 % 0.0-0.9 [facility] Comment on above: IG% - Immature Granu locytes (promyelocytes, myelocytes and metamyelocytes) > 1% indicates that a LEFT SHIFT is Present. Ketones Test strip Ql (U)Ord ered By: Tati Caballero on 09-21-2024 Ketones Ql (U) Negative Negative [facility] Laboratory - Chemistry and C hemistry - challengeOrdered By: Tati Caballero on 09-21-2024 AST [Catalytic activity/Vol] 24 U/L <38 [facility] Lipaseon 09-21-2024 Lipase [Catalytic activity/Vol] 20 U/L Normal 13-75 [facility] Comment on above: Result Comment: Marcelle fritz note:LIPASE revised reference range effective 22.New Lipase methodology. Expected to produce lower valuesthan the previous assay method.NEW Reference Range: 13 - 75 U/L Performed By: #### L 501.2450, L100.0100, L500.4050 ####[facility] [address] [place], [address] Lipase measurementOrdered By : Tati Caballero on 09-21-2024 Lipase [Catalytic activity/Vol] 20 U/L 13-75 [facility] Comment on above: Please note:LIPASE r evised reference range effective 22. New Lipase methodology. Expected to produce lower values than the previous assay method. NEW Reference Range: 13 - 75 U/L MCV (mean corpuscular volume ) determinationOrdered By: Tati Caballero on 09-21-2024 MCV (RBC) [Entitic vol] 92.0 fL 80-94 [facility] Mean corpuscular hemoglobin (MCH) determinationOrdered By: Tati Caballero on 09-21-2024 MCH (RBC) [Entitic mass] 30.1 pg 27.0-32.0 [facility] Mean corpuscular hemoglobin concentration (MCHC) determinationOrdered By: Tati Caballero on 09-21-2024 MCHC (RBC) [Mass/Vol] 32.8 g/dL 32-36 [facility] Mean platelet volume determi nationOrdered By: Tati Caballero on 09-21-2024 Mean platelet [facility] Comment on [facility]: Test not performed Microscopic analysis of urin e for red blood cells (RBC)Ordered By: Tati Caballero on 09-21-2024 Microscopic analysis of urine for red blood cells (RBC) 0-5 SEEN /hpf 0-5 [facility] Monocyte percentageOrdered B y: Tati Caballero on 09-21-2024 Monocytes/100 WBC (Bld) 12.4 % High 0-10 [facility] Mucus LM Ql (Urine sed)Order ed By: Tati Caballero on 09-21-2024 Mucus Ql (Urine sed) 0 SEEN /hpf [facility] Neutrophil percentageOrdered By: Tati Caballero on 09-21-2024 Neutrophils/100 WBC (Bld) 50.4 % 47-70 [facility] Nitrite Test strip Ql (U)Ord ered By: Tati Caballero on 09-21-2024 Nitrite Ql (U) Negative Negative [facility] No Panel InformationOrdered By: Tati Caballero on 09-21-2024 24 U/L <38 [facility] Nucleated red blood cell per centageOrdered By: Tati Caballero on 09-21-2024 Nucleated RBC/100 WBC (Bld) [Ratio] 0 % 0-5 [facility] Platelet countOrdered By: Diamond Caballero on 09-21-2024 Platelet count [facility] Comment on above: Test not performedPl [...] 09-21-2024 Platelets LM Ql (Bld) ADEQUATE ADEQ [facility] Potassium measurement (mass/ volume)Ordered By: Tati Caballero on 09-21-2024 Potassium (Unsp spec) [Mass/Vol] 4.2 mmol/L 3.3-5.1 [facility] Protein Test strip Ql (U)Ord ered By: Tati Caballero on 09-21-2024 Protein Ql (U) 15 mg/dl High Negative [facility] RBC Auto (Bld) [#/Vol]Ordere d By: Tati Caballero on 09-21-2024 RBC (Bld) [#/Vol] 3.75 10*6/uL Low 4.6-6.2 [facility] Serum creatinine measurement (mass/volume)Ordered By: Tati Caballero on 09-21-2024 Creatinine [Mass/Vol] 0.96 mg/dL 0.70-1.20 [facility] Serum globulin measurementOr dered By: Tati Caballero on 09-21-2024 Globulin (S) [Mass/Vol] 3.9 g/dL 2.2-4.2 [facility] Serum glucose measurement (m ass/volume)Ordered By: Tati Caballero on 09-21-2024 Glucose [Mass/Vol] 173 mg/dL High 70-99 [facility] Serum or plasma alanine grace otransferase (ALT) measurementOrdered By: Tati Caballero on 09-21-2024 ALT [Catalytic activity/Vol] 13 U/L <47 [facility] Serum or plasma albumin shweta urement (mass/volume)Ordered By: Tati Caballero on 09-21-2024 Albumin [Mass/Vol] 3.6 g/dL 3.4-4.8 [facility] Serum or plasma albumin/glob ulin mass ratioOrdered By: Tati Caballero 09-21-2024 Albumin/Globulin [Mass ratio] 0.9 {ratio} 0.9-2.4 [facility] Serum or plasma alkaline gibson sphatase measurementOrdered By: Tati Caballero on 09-21-2024 ALP [Catalytic activity/Vol] 132 U/L High 40-129 [facility] Serum or plasma calcium shweta urement (mass/volume)Ordered By: Tati Caballero on 09-21-2024 Calcium [Mass/Vol] 9.0 mg/dL 7.6-11.0 [facility] Serum or plasma urea nitroge n measurement (mass/volume)Ordered By: Tati Caballero on 09-21-2024 Urea nitrogen [Mass/Vol] 19 mg/dL 4-19 [facility] Sodium levelOrdered By: Kimani Caballero on 09-21-2024 Sodium [Moles/Vol] 136 mmol/L 133-145 [facility] Squamous epithelial cells de tection in urine sediment by light microscopyOrdered By: Tati Caballero on 09-21-2024 Epithelial cells.squamous LM Ql (Urine sed) 0-5 SEEN /hpf 0-5 [facility] Total proteinOrdered By: Josué yeagerdashawncamryn Caballero on 09-21-2024 Protein [Mass/Vol] 7.5 g/dL 5.9-8.4 [facility] Urinalysis, Completeon 09-21 BILIRUBIN URINE Negative Normal Negative [facility] Comment on above: Order Comment: CLEAN CATCH Performed By: #### L 400.0001 ####[facility] [address] [place], [address] Clarity (U) Clear Normal Clear [facility] Comment on above: Order Comment: CLEAN CATCH Performed By: #### L 400.0001 ####[facility] [address] [place], [address] Color (U) Yellow Normal Yellow [facility] Comment on above: Order Comment: CLEAN CATCH Performed By: #### L 400.0001 ####[facility] [address] [place], [address] GLUCOSE, UR Normal Normal Normal [facility] Comment on above: Order Comment: CLEAN CATCH Performed By: #### L 400.0001 ####[facility] [address] [place], [address] KETONE UR Negative Normal Negative [facility] Comment on above: Order Comment: CLEAN CATCH Performed By: #### L 400.0001 ####[facility] [address] [place], [address] LEUK ESTERASE Negative Normal Negative [facility] Comment on above: Order Comment: CLEAN CATCH Performed By: #### L 400.0001 ####[facility] [address] [facility] [address] Nitrite Ql (U) Negative Normal Negative [facility] Comment on above: Order Comment: CLEAN CATCH Performed By: #### L 400.0001 ####[facility] [address] [place], [address] OCCULT BLOOD-UR Negative Normal Negative [facility] Comment on above: Order Comment: CLEAN CATCH Performed By: #### L 400.0001 ####[facility] [address] [place], [address] pH UR 6.0 Normal 5.0 - 8.0 [facility] Comment on above: Order Comment: CLEAN CATCH Performed By: #### L 400.0001 ####[facility] [address] [place], [address] PROT DIPSTX 15 mg/dl Abnormal Negative [facility] Comment on above: Order Comment: CLEAN CATCH Performed By: #### L 400.0001 ####[facility] [address] [place], [address] SP.GR. DIPSTX 1.015 Normal 1.002-1.03 0 [facility] Comment on above: Order Comment: CLEAN CATCH Performed By: #### L 400.0001 ####[facility] [address] [place], [address] UROBILI Normal Normal Normal [facility] Comment on above: Order Comment: CLEAN CATCH Performed By: #### L 400.0001 ####[facility] [address] [place], [address] Urine clarityOrdered By: Josué Caballero on 09-21-2024 Clarity (U) Clear Clear [facility] Urine color determinationOrd ered By: Tati Caballero on 09-21-2024 Color (U) Yellow Yellow [facility] Urine glucose detectionOrder ed By: Tati Caballero on 09-21-2024 Glucose Ql (U) Normal mg/dl Normal [facility] Urine leukocyte esterase det ection by dipstickOrdered By: Tati Caballero on 09-21-2024 Leukocyte esterase Test strip Ql (U) Negative Negative [facility] Urine pHOrdered By: Lizzeth Caballero on 09-21-2024 pH (U) 6.0 [pH] 5.0 - 8.0 [facility] Urine sediment bacteria coun t by microscopy (number/high power field)Ordered By: Tati Caballero on 09-21-2024 Bacteria LM.HPF (Urine sed) [#/Area] 0 /[HPF] None Seen [facility] Urine specific gravity measu rementOrdered By: Tati Caballero on 09-21-2024 Specific gravity (U) [Rel density] 1.015 1.002-1.03 0 [facility] Urine urobilinogen measureme ntOrdered By: Tati Cbaallero on 09-21-2024 Urobilinogen Ql (U) Normal mg/dl Normal [facility] White blood cell (WBC) count Ordered By: Tati Caballero on 09-21-2024 WBC (Bld) [#/Vol] 4.4 10*3/uL 4.4-11.0 [facility] White blood cell countOrdere d By: Tati Caballero on 09-21-2024 White blood cell count 0-5 SEEN /hpf 0-5 [facility] Basic Metabolic Profile (BMP )on 09-05-2024 BUN Normal 4-19 [facility] Comment on above: Result Comment: Canc elled via OM: Order cancelled - Patient discharged Performed By: #### L 500.2500, L100.0100 ####[facility] [address] [place], [address] BUN/CRE Normal 10-20 [facility] Comment on above: Result Comment: Canc elled via OM: Order cancelled - Patient discharged Performed By: #### L 500.2500, L100.0100 ####[facility] [address] [place], [address] Calcium Normal 7.6-11.0 [facility] Comment on above: Result Comment: Canc elled via OM: Order cancelled - Patient discharged Performed By: #### L 500.2500, L100.0100 ####[facility] [address] [place], [address] CL Normal 98-108 [facility] Comment on above: Result Comment: Canc elled via OM: Order cancelled - Patient discharged Performed By: #### L 500.2500, L100.0100 ####[facility] [address] [place], [address] CO2 Normal 21.0-32.0 [facility] Comment on above: Result Comment: Canc elled via OM: Order cancelled - Patient discharged Performed By: #### L 500.2500, L100.0100 ####[facility] [address] [place], [address] CREAT,SERUM Normal 0.70-1.20 [facility] Comment on above: Result Comment: Canc elled via OM: Order cancelled - Patient discharged Performed By: #### L 500.2500, L100.0100 ####[facility] [address] [place], [address] eGFR Normal >60 [facility] Comment on above: Result Comment: Canc elled via OM: Order cancelled - Patient discharged Performed By: #### L 500.2500, L100.0100 ####[facility] [address] [place], [address] GAP Normal 5-15 [facility] Comment on above: Result Comment: Canc elled via OM: Order cancelled - Patient discharged Performed By: #### L 500.2500, L100.0100 ####[facility] [address] [place], [address] GLU Normal 70-99 [facility] Comment on above: Result Comment: Canc elled via OM: Order cancelled - Patient discharged Performed By: #### L 500.2500, L100.0100 ####[facility] [address] [place], [address] Potassium Normal 3.3-5.1 [facility] Comment on above: Result Comment: Canc elled via OM: Order cancelled - Patient discharged Performed By: #### L 500.2500, L100.0100 ####[facility] [address] [place], [address] Basic Metabolic Profile (BMP) Normal 133-145 [facility] Comment on above: Result Comment: Canc elled via OM: Order cancelled - Patient discharged Performed By: #### L 500.2500, L100.0100 ####[facility] [address] [place], [address] CBC W/Diff, Automatedon 04-0 -2024 Absolute Neut Normal 2.0-7.7 [facility] Comment on above: Result Comment: Canc elled via OM: Order cancelled - Patient discharged Performed By: #### L 500.2500, L100.0100 ####[facility] [address] [place], [address] HCT Normal 40-54 [facility] Comment on above: Result Comment: Canc elled via OM: Order cancelled - Patient discharged Performed By: #### L 500.2500, L100.0100 ####[facility] [address] [place], [address] HGB Normal 13.0-16.5 [facility] Comment on above: Result Comment: Canc elled via OM: Order cancelled - Patient discharged Performed By: #### L 500.2500, L100.0100 ####[facility] [address] [place], [address] MCH Normal 27.0-32.0 [facility] Comment on above: Result Comment: Canc elled via OM: Order cancelled - Patient discharged Performed By: #### L 500.2500, L100.0100 ####[facility] [address] [place], [address] MCHC Normal 32-36 [facility] Comment on above: Result Comment: Canc elled via OM: Order cancelled - Patient discharged Performed By: #### L 500.2500, L100.0100 ####[facility] [address] [place], [address] MCV Normal 80-94 [facility] Comment on above: Result Comment: Canc elled via OM: Order cancelled - Patient discharged Performed By: #### L 500.2500, L100.0100 ####[facility] [address] [place], [address] NEUT% Normal 47-70 [facility] Comment on above: Result Comment: Canc elled via OM: Order cancelled - Patient discharged Performed By: #### L 500.2500, L100.0100 ####[facility] [address] [place], [address] PLT Normal 150-450 [facility] Comment on above: Result Comment: Canc elled via OM: Order cancelled - Patient discharged Performed By: #### L 500.2500, L100.0100 ####[facility] [address] [place], [address] RBC Normal 4.6-6.2 [facility] Comment on above: Result Comment: Canc elled via OM: Order cancelled - Patient discharged Performed By: #### L 500.2500, L100.0100 ####[facility] [address] [place], [address] RDW CV Normal 11.6-14.6 [facility] Comment on above: Result Comment: Canc elled via OM: Order cancelled - Patient discharged Performed By: #### L 500.2500, L100.0100 ####[facility] [address] [place], [address] RDW SD Normal 35.1-43.9 [facility] Comment on above: Result Comment: Canc elled via OM: Order cancelled - Patient discharged Performed By: #### L 500.2500, L100.0100 ####[facility] [address] [place], [address] WBC Normal 4.4-11.0 [facility] Comment on above: Result Comment: Canc elled via OM: Order cancelled - Patient discharged Performed By: #### L 500.2500, L100.0100 ####[facility] [address] [place], [address] Absolute lymphocyte countOrd ered By: Jessi Olguin on 09-04-2024 Lymphocytes Auto (Unsp spec) [#/Vol] 1.13 10*3/uL 0.83-4.51 [facility] Absolute neutrophil countOrd ered By: Jessi Olguin on 09-04-2024 Neutrophils (Bld) [#/Vol] 3.4 10*3/uL 2.0-7.7 [facility] Anion gap in Serum or Plasma Ordered By: Jessi Olguin on 09-04-2024 Anion gap [Moles/Vol] 9 mmol/L 5-15 [facility] Automated lymphocyte count a s percentage of total leukocytesOrdered By: Jessi Olguin on 09-04-2024 Lymphocytes/100 WBC Auto (Unsp spec) 21.6 % 19-41 [facility] BUN/creatinine ratioOrdered By: Jessi Olguin on 09-04-2024 Urea nitrogen/Creatinine [Mass ratio] 21.4 mg/mg High 10-20 [facility] Basic Metabolic Profile (BMP )on 09-04-2024 BUN Normal 4-19 [facility] Comment on above: Result Comment: Canc elled via OM: Order cancelled - Patient discharged Performed By: #### L 500.2500, L100.0100 ####[facility] [address] [place], [address] BUN/CRE Normal 10-20 [facility] Comment on above: Result Comment: Canc elled via OM: Order cancelled - Patient discharged Performed By: #### L 500.2500, L100.0100 ####[facility] [address] [place], [address] Calcium Normal 7.6-11.0 [facility] Comment on above: Result Comment: Canc elled via OM: Order cancelled - Patient discharged Performed By: #### L 500.2500, L100.0100 ####[facility] [address] [place], [address] CL Normal 98-108 [facility] Comment on above: Result Comment: Canc elled via OM: Order cancelled - Patient discharged Performed By: #### L 500.2500, L100.0100 ####[facility] [address] [place], [address] CO2 Normal 21.0-32.0 [facility] Comment on above: Result Comment: Canc elled via OM: Order cancelled - Patient discharged Performed By: #### L 500.2500, L100.0100 ####[facility] [address] [place], [address] CREAT,SERUM Normal 0.70-1.20 [facility] Comment on above: Result Comment: Canc elled via OM: Order cancelled - Patient discharged Performed By: #### L 500.2500, L100.0100 ####[facility] [address] [place], [address] eGFR Normal >60 [facility] Comment on above: Result Comment: Canc elled via OM: Order cancelled - Patient discharged Performed By: #### L 500.2500, L100.0100 ####[facility] [address] [place], [address] GAP Normal 5-15 [facility] Comment on above: Result Comment: Canc elled via OM: Order cancelled - Patient discharged Performed By: #### L 500.2500, L100.0100 ####[facility] [address] [place], [address] GLU Normal 70-99 [facility] Comment on above: Result Comment: Canc elled via OM: Order cancelled - Patient discharged Performed By: #### L 500.2500, L100.0100 ####[facility] [address] [place], [address] Potassium Normal 3.3-5.1 [facility] Comment on above: Result Comment: Canc elled via OM: Order cancelled - Patient discharged Performed By: #### L 500.2500, L100.0100 ####[facility] [address] [place], [address] Basic Metabolic Profile (BMP) Normal 133-145 [facility] Comment on above: Result Comment: Canc elled via OM: Order cancelled - Patient discharged Performed By: #### L 500.2500, L100.0100 ####[facility] [address] [place], [address] Basophil percentageOrdered B y: Jessi Olguin on 09-04-2024 Basophils/100 WBC (Bld) 0.4 % 0-1 [facility] Bilirubin, totalOrdered By: Jessikendall Olguin on 09-04-2024 Bilirubin [Mass/Vol] 0.56 mg/dL 0.00-1.30 [facility] CBC W/Diff, Automatedon 04-0 PLT EST SLT DEC Normal ADEQ [facility] Comment on above: Order Comment: Order Date: 09/04/24Order Info: [id number] - CBCD Performed By: #### L 100.0100, L501.9985, L500.4050 ####[facility] [address] [place], [address] Absolute Neut Normal 2.0-7.7 [facility] Comment on above: Result Comment: Canc elled via OM: Order cancelled - Patient discharged Performed By: #### L 500.2500, L100.0100 ####[facility] [address] [place], [address] HCT Normal 40-54 [facility] Comment on above: Result Comment: Canc elled via OM: Order cancelled - Patient discharged Performed By: #### L 500.2500, L100.0100 ####[facility] [address] [place], [address] HGB Normal 13.0-16.5 [facility] Comment on above: Result Comment: Canc elled via OM: Order cancelled - Patient discharged Performed By: #### L 500.2500, L100.0100 ####[facility] [address] [place], [address] MCH Normal 27.0-32.0 [facility] Comment on above: Result Comment: Canc elled via OM: Order cancelled - Patient discharged Performed By: #### L 500.2500, L100.0100 ####[facility] [address] [place], [address] MCHC Normal 32-36 [facility] Comment on above: Result Comment: Canc elled via OM: Order cancelled - Patient discharged Performed By: #### L 500.2500, L100.0100 ####[facility] [address] [place], [address] MCV Normal 80-94 [facility] Comment on above: Result Comment: Canc elled via OM: Order cancelled - Patient discharged Performed By: #### L 500.2500, L100.0100 ####[facility] [address] [place], [address] NEUT% Normal 47-70 [facility] Comment on above: Result Comment: Canc elled via OM: Order cancelled - Patient discharged Performed By: #### L 500.2500, L100.0100 ####[facility] [address] [place], [address] PLT Normal 150-450 [facility] Comment on above: Result Comment: Canc elled via OM: Order cancelled - Patient discharged Performed By: #### L 500.2500, L100.0100 ####[facility] [address] [place], [address] RBC Normal 4.6-6.2 [facility] Comment on above: Result Comment: Canc elled via OM: Order cancelled - Patient discharged Performed By: #### L 500.2500, L100.0100 ####[facility] [address] [place], [address] RDW CV Normal 11.6-14.6 [facility] Comment on above: Result Comment: Canc elled via OM: Order cancelled - Patient discharged Performed By: #### L 500.2500, L100.0100 ####[facility] [address] [place], [address] RDW SD Normal 35.1-43.9 [facility] Comment on above: Result Comment: Canc elled via OM: Order cancelled - Patient discharged Performed By: #### L 500.2500, L100.0100 ####[facility] [address] [place], [address] WBC Normal 4.4-11.0 [facility] Comment on above: Result Comment: Canc elled via OM: Order cancelled - Patient discharged Performed By: #### L 500.2500, L100.0100 ####[facility] [address] [place], [address] Carbon dioxide, total [Moles /volume] in Central venous bloodOrdered By: Jessi Olguin on 09-04-2024 CO2 [Moles/Vol] 22.9 mmol/L 21.0-32.0 [facility] Chloride assayOrdered By: Oscar Olguin on 09-04-2024 Chloride [Moles/Vol] 105 mmol/L 98-108 [facility] Comprehensive Metabolic Prof ilon 09-04-2024 Albumin [Mass/Vol] 3.5 g/dL Normal 3.4-4.8 [facility] Comment on above: Order Comment: Order Date: 09/04/24Order Info: [id number] - CMP Performed By: #### L 100.0100, L501.9985, L500.4050 ####[facility] [address] [place], [address] Albumin/Globulin [Mass ratio] 0.9 {ratio} Normal 0.9-2.4 [facility] Comment on above: Order Comment: Order Date: 09/04/24Order Info: [id number] - CMP Performed By: #### L 100.0100, L501.9985, L500.4050 ####[facility] [address] [place], [address] ALK PHOS 117 U/L Normal 40-129 [facility] Comment on above: Order Comment: Order Date: 09/04/24Order Info: [id number] - CMP Performed By: #### L 100.0100, L501.9985, L500.4050 ####[facility] [address] [place], [address] ALT [Catalytic activity/Vol] 12 U/L Normal <=46 [facility] Comment on above: Order Comment: Order Date: 09/04/24Order Info: [id number] - CMP Performed By: #### L 100.0100, L501.9985, L500.4050 ####[facility] [address] [place], [address] AST [Catalytic activity/Vol] 19 U/L Normal <=37 [facility] Comment on above: Order Comment: Order Date: 09/04/24Order Info: 0786-1 - CMP Performed By: #### L 100.0100, L501.9985, L500.4050 ####[facility] [address] [place], [address] Bilirubin [Mass/Vol] 0.56 mg/dL Normal 0.00-1.30 [facility] Comment on above: Order Comment: Order Date: 09/04/24Order Info: 0786-1 - CMP Performed By: #### L 100.0100, L501.9985, L500.4050 ####[facility] [address] [place], [address] BUN/CRE 21.4 RATIO High 10-20 [facility] Comment on above: Order Comment: Order Date: 09/04/24Order Info: 0786-1 - CMP Performed By: #### L 100.0100, L501.9985, L500.4050 ####[facility] [address] [place], [address] Calcium [Mass/Vol] 9.1 mg/dL Normal 7.6-11.0 [facility] Comment on above: Order Comment: Order Date: 09/04/24Order Info: 0786-1 - CMP Performed By: #### L 100.0100, L501.9985, L500.4050 ####[facility] [address] [place], [address] Chloride [Moles/Vol] 105 mmol/L Normal 98-108 [facility] Comment on above: Order Comment: Order Date: 09/04/24Order Info: 0786-1 - CMP Performed By: #### L 100.0100, L501.9985, L500.4050 ####[facility] [address] [place], [address] CO2 [Moles/Vol] 22.9 mmol/L Normal 21.0-32.0 [facility] Comment on above: Order Comment: Order Date: 09/04/24Order Info: 0786-1 - CMP Performed By: #### L 100.0100, L501.9985, L500.4050 ####[facility] [address] [place], [address] Creatinine [Mass/Vol] 0.91 mg/dL Normal 0.70-1.20 [facility] Comment on above: Order Comment: Order Date: 09/04/24Order Info: 0786-1 - CMP Performed By: #### L 100.0100, L501.9985, L500.4050 ####[facility] [address] [place], [address] GAP 9 Normal 5-15 [facility] Comment on above: Order Comment: Order Date: 09/04/24Order Info: 0786-1 - CMP Performed By: #### L 100.0100, L501.9985, L500.4050 ####[facility] [address] [place], [address] GFR/1.73 sq M.predicted among non-blacks MDRD (S/P/Bld) [Vol rate/Area] 88 mL/min/{1.73_m2} Normal >60 [facility] Comment on above: Order Comment: Order Date: 09/04/24Order Info: 0786-1 - CMP Result Comment: mL/m in/1.73m2 CKD-EPI Creatinine Equation (2020) Performed By: #### L 100.0100, L501.9985, L500.4050 ####[facility] [address] [place], [address] Globulin (S) [Mass/Vol] 4.1 g/dL Normal 2.2-4.2 [facility] Comment on above: Order Comment: Order Date: 09/04/24Order Info: 0786-1 - CMP Performed By: #### L 100.0100, L501.9985, L500.4050 ####[facility] [address] [place], [address] Glucose [Mass/Vol] 176 mg/dL High 70-99 [facility] Comment on above: Order Comment: Order Date: 09/04/24Order Info: 0786-1 - CMP Performed By: #### L 100.0100, L501.9985, L500.4050 ####[facility] [address] [place], [address] Potassium [Moles/Vol] 3.9 mmol/L Normal 3.3-5.1 [facility] Comment on above: Order Comment: Order Date: 09/04/24Order Info: 0786-1 - CMP Performed By: #### L 100.0100, L501.9985, L500.4050 ####[facility] [address] [place], [address] Sodium [Moles/Vol] 137 mmol/L Normal 133-145 [facility] Comment on above: Order Comment: Order Date: 09/04/24Order Info: 0786-1 - CMP Performed By: #### L 100.0100, L501.9985, L500.4050 ####[facility] [address] [place], [address] T PROT 7.6 g/dL Normal 5.9-8.4 [facility] Comment on above: Order Comment: Order Date: 09/04/24Order Info: 0786-1 - CMP Performed By: #### L 100.0100, L501.9985, L500.4050 ####[facility] [address] [place], [address] Urea nitrogen [Mass/Vol] 19 mg/dL Normal 4-19 [facility] Comment on above: Order Comment: Order Date: 09/04/24Order Info: 0786-1 - CMP Performed By: #### L 100.0100, L501.9985, L500.4050 ####[facility] [address] [place], [address] Eosinophil percentageOrdered By: Jessi Olguin on 09-04-2024 Eosinophils/100 WBC (Bld) 3.6 % 0-5 [facility] Erythrocyte distribution wid th (RBC) [Ratio]Ordered By: Jessi Olguin on 09-04-2024 Erythrocyte distribution width (RBC) [Entitic vol] 50.0 fL High 35.1-43.9 [facility] Erythrocyte distribution wid th ratioOrdered By: Jessi Olguin on 09-04-2024 Erythrocyte distribution width (RBC) [Ratio] 14.1 % 11.6-14.6 [facility] Erythrocyte distribution wid th standard deviationOrdered By: Jessi Olguin on 09-04-2024 Erythrocyte distribution width (RBC) [Ratio] 50.0 fl High 35.1-43.9 [facility] GFR/1.73 sq M.predicted mikayla g non-blacks MDRD (S/P/Bld) [Vol rate/Area]Ordered By: Jessi Olguin on 09-04-2024 Estimated GFR (MDRD) Non-Af Amer 88 >60 [facility] Comment on above: mL/min/1.73m2 CKD-EP I Creatinine Equation (2020) Glomerular filtration rate ( GFR) estimation/1.73 sq m using serum, plasma, or whole bOrdered By: Jessi Olguin on 09-04-2024 GFR/1.73 sq M.predicted among non-blacks MDRD (S/P/Bld) [Vol rate/Area] 88 mL/min/{1.73_m2} >60 [facility] Comment on above: mL/min/1.73m2 CKD-EP I Creatinine Equation (2020) Hematocrit Auto (Bld) [Volum e fraction]Ordered By: Jessi Olguin on 09-04-2024 Hematocrit (Bld) [Volume fraction] 35.4 % Low 40-54 [facility] Hemoglobin A1con 09-04-2024 HbA1c (Bld) [Mass fraction] 6.8 % Normal <=5.6 [facility] Comment on above: Order Comment: Order Date: 09/04/24Order Info: 4548-4 - A1C Performed By: #### L 100.0100, L501.9985, L500.4050 ####[facility] [address] [place], [address] Hemoglobin A1c percentageOrd ered By: Jessi Olguin on 09-04-2024 HbA1c (Bld) [Mass fraction] 6.8 % >5.7 [facility] Hemoglobin measurementOrdere d By: Jessi Olguin on 09-04-2024 Hemoglobin (Bld) [Mass/Vol] 11.4 g/dL Low 13.0-16.5 [facility] Immature granulocytes/100 WB C Auto (Bld)Ordered By: Jessi Olguin on 09-04-2024 Immature granulocytes/100 WBC (Bld) 0.600 % 0.0-0.9 [facility] Comment on above: IG% - Immature Granu locytes (promyelocytes, myelocytes and metamyelocytes) > 1% indicates that a LEFT SHIFT is Present. Laboratory - Chemistry and C hemistry - challengeOrdered By: Jessi Olguin on 09-04-2024 AST [Catalytic activity/Vol] 19 U/L <38 [facility] Lymphocytes Auto (Unsp spec) [#/Vol]Ordered By: Jessi Olguin on 09-04-2024 Lymphocytes (Bld) [#/Vol] 1.13 10*3/uL 0.83-4.51 [facility] Lymphocytes/100 WBC Auto (Un sp spec)Ordered By: Jessi Olguin on 09-04-2024 Lymphocytes/100 WBC (Bld) 21.6 % 19-41 [facility] MCV (mean corpuscular volume ) determinationOrdered By: Jessi Olguin on 09-04-2024 MCV (RBC) [Entitic vol] 96.2 fL High 80-94 [facility] Mean corpuscular hemoglobin (MCH) determinationOrdered By: Jessi Olguin on 09-04-2024 MCH (RBC) [Entitic mass] 31.0 pg 27.0-32.0 [facility] Mean corpuscular hemoglobin concentration (MCHC) determinationOrdered By: Jessi Olguin on 09-04-2024 MCHC (RBC) [Mass/Vol] 32.2 g/dL 32-36 [facility] Mean platelet volume determi nationOrdered By: Jessi Olguin on 09-04-2024 Platelet mean volume (Bld) [Entitic vol] 13.9 fL High 6.2-12.0 [facility] Monocyte percentageOrdered B y: Jessi Olguin on 09-04-2024 Monocytes/100 WBC (Bld) 9.8 % 0-10 [facility] Neutrophil percentageOrdered By: Jessi Olguin on 09-04-2024 Neutrophils/100 WBC (Bld) 64.0 % 47-70 [facility] No Panel InformationOrdered By: Jessi Olguin on 09-04-2024 19 U/L <38 [facility] Nucleated red blood cell per centageOrdered By: Jessi Olguin on 09-04-2024 Nucleated RBC/100 WBC (Bld) [Ratio] 0 % 0-5 [facility] Platelet countOrdered By: Oscar Olguin on 09-04-2024 Platelet Count See comment 150-450 [facility] Comment on above: Please note: For thi [...] Platelets LM Ql (Bld) SLT DEC ADEQ [facility] Platelets LM Ql (Bld)Ordered By: Jessi Olguin on 09-04-2024 Platelet Estimate SLT DEC [facility] Potassium (Unsp spec) [Mass/ Vol]Ordered By: Jessi Olguin on 09-04-2024 Potassium [Moles/Vol] 3.9 mmol/L 3.3-5.1 [facility] Potassium measurement (mass/ volume)Ordered By: Jessi Olguin on 09-04-2024 Potassium (Unsp spec) [Mass/Vol] 3.9 mmol/L 3.3-5.1 [facility] RBC Auto (Bld) [#/Vol]Ordere d By: Jessi Olguin on 09-04-2024 RBC (Bld) [#/Vol] 3.68 10*6/uL Low 4.6-6.2 [facility] Serum creatinine measurement (mass/volume)Ordered By: Jessi Olguin on 09-04-2024 Creatinine [Mass/Vol] 0.91 mg/dL 0.70-1.20 [facility] Serum globulin measurementOr dered By: Jessi Olguin on 09-04-2024 Globulin (S) [Mass/Vol] 4.1 g/dL 2.2-4.2 [facility] Serum glucose measurement (m ass/volume)Ordered By: Jessi Olguin on 09-04-2024 Glucose [Mass/Vol] 176 mg/dL High 70-99 [facility] Serum or plasma alanine grace otransferase (ALT) measurementOrdered By: Jessi Olguin on 09-04-2024 ALT [Catalytic activity/Vol] 12 U/L <47 [facility] Serum or plasma albumin shweta urement (mass/volume)Ordered By: Jessi Olguin on 09-04-2024 Albumin [Mass/Vol] 3.5 g/dL 3.4-4.8 [facility] Serum or plasma albumin/glob ulin mass ratioOrdered By: Jessi Olguin on 09-04-2024 Albumin/Globulin [Mass ratio] 0.9 {ratio} 0.9-2.4 [facility] Serum or plasma alkaline gibson sphatase measurementOrdered By: Jessi Olguin on 09-04-2024 ALP [Catalytic activity/Vol] 117 U/L 40-129 [facility] Serum or plasma calcium shweta urement (mass/volume)Ordered By: Jessi Olguin on 09-04-2024 Calcium [Mass/Vol] 9.1 mg/dL 7.6-11.0 [facility] Serum or plasma urea nitroge n measurement (mass/volume)Ordered By: Jessi Olguin on 09-04-2024 Urea nitrogen [Mass/Vol] 19 mg/dL 4-19 [facility] Sodium levelOrdered By: Jessi Olguin on 09-04-2024 Sodium [Moles/Vol] 137 mmol/L 133-145 [facility] Total proteinOrdered By: Ana Luisa Olguin on 09-04-2024 Protein [Mass/Vol] 7.6 g/dL 5.9-8.4 [facility] White blood cell (WBC) count Ordered By: Jessi Olguin on 09-04-2024 WBC (Bld) [#/Vol] 5.2 10*3/uL 4.4-11.0 [facility] Absolute lymphocyte countOrd ered By: Wood Braxton on 09-03-2024 Lymphocytes Auto (Unsp spec) [#/Vol] 1.57 10*3/uL 0.83-4.51 [facility] Absolute neutrophil countOrd ered By: Wood Braxton on 09-03-2024 Neutrophils (Bld) [#/Vol] 2.8 10*3/uL 2.0-7.7 [facility] Anion gap in Serum or Plasma Ordered By: Wood Braxton on 09-03-2024 Anion gap [Moles/Vol] 10 mmol/L 5-15 [facility] Automated lymphocyte count a s percentage of total leukocytesOrdered By: Wood Braxton on 09-03-2024 Lymphocytes/100 WBC Auto (Unsp spec) 30.3 % [facility] BUN/creatinine ratioOrdered By: Wood Braxton on 09-03-2024 Urea nitrogen/Creatinine [Mass ratio] 25.6 mg/mg High - [facility] Basic Metabolic Profile (BMP )on 09-03-2024 BUN/CRE 25.6 RATIO High - [facility] Comment on above: Performed By: #### L 501.2300, L501.5200, L100.0100, L500.2500 ####[facility] [address] [place], [address] Calcium [Mass/Vol] 8.7 mg/dL Normal 7.6-11.0 [facility] Comment on above: Performed By: #### L 501.2300, L501.5200, L100.0100, L500.2500 ####[facility] [address] [place], [address] Chloride [Moles/Vol] 104 mmol/L Normal 98-108 [facility] Comment on above: Performed By: #### L 501.2300, L501.5200, L100.0100, L500.2500 ####[facility] [address] [place], [address] CO2 [Moles/Vol] 21.9 mmol/L Normal 21.0-32.0 [facility] Comment on above: Performed By: #### L 501.2300, L501.5200, L100.0100, L500.2500 ####[facility] [address] [place], [address] Creatinine [Mass/Vol] 0.80 mg/dL Normal 0.70-1.20 [facility] Comment on above: Performed By: #### L 501.2300, L501.5200, L100.0100, L500.2500 ####[facility] [address] [place], [address] ECRCL 103.22 ml/min Normal 50-250 [facility] Comment on above: Performed By: #### L 501.2300, L501.5200, L100.0100, L500.2500 ####[facility] [address] [place], [address] GAP 10 Normal 5-15 [facility] Comment on above: Performed By: #### L 501.2300, L501.5200, L100.0100, L500.2500 ####[facility] [address] [place], [address] GFR/1.73 sq M.predicted among non-blacks MDRD (S/P/Bld) [Vol rate/Area] 92 mL/min/{1.73_m2} Normal >60 [facility] Comment on above: Result Comment: mL/m in/1.73m2 CKD-EPI Creatinine Equation (2020) Performed By: #### L 501.2300, L501.5200, L100.0100, L500.2500 ####[facility] [address] [place], [address] Glucose [Mass/Vol] 148 mg/dL High 70-99 [facility] Comment on above: Performed By: #### L 501.2300, L501.5200, L100.0100, L500.2500 ####[facility] [address] [place], [address] Potassium [Moles/Vol] 4.1 mmol/L Normal 3.3-5.1 [facility] Comment on above: Performed By: #### L 501.2300, L501.5200, L100.0100, L500.2500 ####[facility] [address] [place], [address] Sodium [Moles/Vol] 136 mmol/L Normal 133-145 [facility] Comment on above: Performed By: #### L 501.2300, L501.5200, L100.0100, L500.2500 ####[facility] [address] [place], [address] Urea nitrogen [Mass/Vol] 21 mg/dL High 4-19 [facility] Comment on above: Performed By: #### L 501.2300, L501.5200, L100.0100, L500.2500 ####[facility] [address] [place], [address] Basophil percentageOrdered B y: Wood Lailizz on 09-03-2024 Basophils/100 WBC (Bld) 0.6 % 0-1 [facility] Bedside Glucoseon 09-03-2024 FINGERSTICK GLU 146 mg/dL High 74-106 [facility] Comment on above: Result Comment: MARIUM GEMENT OF PATIENT CARE PER NURSING PROTOCOL Performed By: #### L 501.080 ####[facility] [address] [place], [address] FINGERSTICK GLU 151 mg/dL High 74-106 [facility] Comment on above: Result Comment: MARIUM GEMENT OF PATIENT CARE PER NURSING PROTOCOL Performed By: #### L 501.080 ####[facility] [address] [place], [address] CBC W/Diff, Automatedon 04-0 PLT TNP Normal 150-450 [facility] Comment on above: Result Comment: Plea se note: For this sample, a platelet estimate isprovided rather than a platelet count due to plateletclumping. Other parameters associated with this sample arenot affected by platelet clumping. If a more accurateplatelet count is required, a redraw of the patient will benecessary. Performed By: #### L 501.2300, L501.5200, L100.0100, L500.2500 ####[facility] [address] [place], [address] PLT EST ADEQUATE Normal ADEQ [facility] Comment on above: Performed By: #### L 501.2300, L501.5200, L100.0100, L500.2500 ####[facility] [address] [place], [address] Carbon dioxide, total [Moles /volume] in Central venous bloodOrdered By: Wood Braxton on 09-03-2024 CO2 [Moles/Vol] 21.9 mmol/L 21.0-32.0 [facility] Chloride assayOrdered By: Romulo Braxton on 09-03-2024 Chloride [Moles/Vol] 104 mmol/L 98-108 [facility] Eosinophil percentageOrdered By: Wood Braxton on 09-03-2024 Eosinophils/100 WBC (Bld) 2.1 % 0-5 [facility] Erythrocyte distribution wid th (RBC) [Ratio]Ordered By: Wood Braxton on 09-03-2024 Erythrocyte distribution width (RBC) [Entitic vol] 48.0 fL High 35.1-43.9 [facility] Erythrocyte distribution wid th ratioOrdered By: Wood Braxton on 09-03-2024 Erythrocyte distribution width (RBC) [Ratio] 14.0 % 11.6-14.6 [facility] Erythrocyte distribution wid th standard deviationOrdered By: Wood Braxton on 09-03-2024 Erythrocyte distribution width (RBC) [Ratio] 48.0 fl High 35.1-43.9 [facility] Estimation of creatinine dennys aranceOrdered By: Wood Braxton on 09-03-2024 Estimated Creatinine Clearance Calc 103.22 ml/min 50-250 [facility] GFR/1.73 sq M.predicted mikayla g non-blacks MDRD (S/P/Bld) [Vol rate/Area]Ordered By: Wood Braxton on 09-03-2024 Estimated GFR (MDRD) Non-Af Amer 92 >60 [facility] Comment on above: mL/min/1.73m2 CKD-EP I Creatinine Equation (2020) Glomerular filtration rate ( GFR) estimation/1.73 sq m using serum, plasma, or whole bOrdered By: Wood Braxton on 09-03-2024 GFR/1.73 sq M.predicted among non-blacks MDRD (S/P/Bld) [Vol rate/Area] 92 mL/min/{1.73_m2} >60 [facility] Comment on above: mL/min/1.73m2 CKD-EP I Creatinine Equation (2020) [facility] at [facility] deOrdered By: Wood Braxton on 09-03-2024 Bedside Glucose (Misc Panel) 146 mg/dL High 74-106 [facility] Comment on above: MANAGEMENT OF PATIEN T CARE PER NURSING PROTOCOL Glucose [Mass/Vol] 146 mg/dL High 74-106 [facility] Comment on above: MANAGEMENT OF PATIEN T CARE PER NURSING PROTOCOL Hematocrit Auto (Bld) [Volum e fraction]Ordered By: Wood Braxton on 09-03-2024 Hematocrit (Bld) [Volume fraction] 31.8 % Low 40-54 [facility] Hemoglobin measurementOrdere d By: Wood Braxton on 09-03-2024 Hemoglobin (Bld) [Mass/Vol] 10.6 g/dL Low 13.0-16.5 [facility] Immature granulocytes/100 WB C Auto (Bld)Ordered By: Wood Braxton on 09-03-2024 Immature granulocytes/100 WBC (Bld) 0.600 % 0.0-0.9 [facility] Comment on above: IG% - Immature Granu locytes (promyelocytes, myelocytes and metamyelocytes) > 1% indicates that a LEFT SHIFT is Present. Legionella Antigen Urineon 0 09-03-2024 LEGU Normal [facility] Comment on above: Performed By: #### M 300.9790, M300.4600 ####[facility] [address] [place], [place], [id number] Lymphocytes Auto (Unsp spec) [#/Vol]Ordered By: Wood Braxton on 09-03-2024 Lymphocytes (Bld) [#/Vol] 1.57 10*3/uL 0.83-4.51 [facility] Lymphocytes/100 WBC Auto (Un sp spec)Ordered By: Wood Braxton on 09-03-2024 Lymphocytes/100 WBC (Bld) 30.3 % 19-41 [facility] MCV (mean corpuscular volume ) determinationOrdered By: Wood Braxton on 09-03-2024 MCV (RBC) [Entitic vol] 93.5 fL 80-94 [facility] Magnesiumon 09-03-2024 Magnesium [Mass/Vol] 1.9 mg/dL Normal 1.5-2.2 [facility] Comment on above: Performed By: #### L 501.2300, L501.5200, L100.0100, L500.2500 ####[facility] [address] [place], [address] Magnesium (Unsp spec) [Mass/ Vol]Ordered By: Wood Braxton on 09-03-2024 Magnesium [Mass/Vol] 1.9 mg/dL 1.5-2.2 [facility] Magnesium measurement (mass/ volume)Ordered By: Wood Braxton on 09-03-2024 Magnesium (Unsp spec) [Mass/Vol] 1.9 mg/dL 1.5-2.2 [facility] Mean corpuscular hemoglobin (MCH) determinationOrdered By: Wood Braxton on 09-03-2024 MCH (RBC) [Entitic mass] 31.2 pg 27.0-32.0 [facility] Mean corpuscular hemoglobin concentration (MCHC) determinationOrdered By: Wood Braxton on 09-03-2024 MCHC (RBC) [Mass/Vol] 33.3 g/dL 32-36 [facility] Mean platelet volume determi nationOrdered By: Wood Braxton on 09-03-2024 [facility] Comment on above: Test not performed Mean platelet volume determination [facility] Comment on above: Test not performed Monocyte percentageOrdered B y: Wood Braxton on 09-03-2024 Monocytes/100 WBC (Bld) 12.2 % High 0-10 [facility] Neutrophil percentageOrdered By: Wood Braxton on 09-03-2024 Neutrophils/100 WBC (Bld) 54.2 % 47-70 [facility] Nucleated red blood cell per centageOrdered By: Wood Braxton on 09-03-2024 Nucleated RBC/100 WBC (Bld) [Ratio] 0 % 0-5 [facility] Phosphoruson 09-03-2024 Phosphate [Mass/Vol] 3.2 mg/dL Normal 2.7-4.5 [facility] Comment on above: Performed By: #### L 501.2300, L501.5200, L100.0100, L500.2500 ####[facility] [address] [place], [address] Platelet countOrdered By: Romulo Braxton on 09-03-2024 Platelet Count TNP [facility] Comment on above: Test not performedPl ease [...] on 09-03-2024 Platelets LM Ql (Bld) ADEQUATE ADEQ [facility] Platelets LM Ql (Bld)Ordered By: Wood Braxton on 09-03-2024 Platelet Estimate ADEQUATE [facility] Potassium (Unsp spec) [Mass/ Vol]Ordered By: Wood Braxton on 09-03-2024 Potassium [Moles/Vol] 4.1 mmol/L 3.3-5.1 [facility] Potassium measurement (mass/ volume)Ordered By: Wood Braxton on 09-03-2024 Potassium (Unsp spec) [Mass/Vol] 4.1 mmol/L 3.3-5.1 [facility] RBC Auto (Bld) [#/Vol]Ordere d By: Wood Braxton on 09-03-2024 RBC (Bld) [#/Vol] 3.40 10*6/uL Low 4.6-6.2 [facility] Serum creatinine measurement (mass/volume)Ordered By: Wood Braxton on 09-03-2024 Creatinine [Mass/Vol] 0.80 mg/dL 0.70-1.20 [facility] Serum glucose measurement (m ass/volume)Ordered By: Wood Braxton on 09-03-2024 Glucose [Mass/Vol] 148 mg/dL High 70-99 [facility] Serum or plasma calcium shweta urement (mass/volume)Ordered By: Wood Braxton on 09-03-2024 Calcium [Mass/Vol] 8.7 mg/dL 7.6-11.0 [facility] Serum or plasma urea nitroge n measurement (mass/volume)Ordered By: Wood Braxton on 09-03-2024 Urea nitrogen [Mass/Vol] 21 mg/dL High 4-19 [facility] Serum phosphorus measurement Ordered By: Wood Braxton on 09-03-2024 Phosphorus Level 3.2 mg/dL 2.7-4.5 [facility] Sodium levelOrdered By: Jack Braxton on 09-03-2024 Sodium [Moles/Vol] 136 mmol/L 133-145 [facility] Strep pneumoniae Antig(UR,CS F)on 09-03-2024 STPAG Normal [facility] Comment on above: Performed By: #### M 300.5730, M300.2410 ####[facility] [address] [place], [place], [address] White blood cell (WBC) count Ordered By: Wood Braxton on 09-03-2024 WBC (Bld) [#/Vol] 5.2 10*3/uL 4.4-11.0 [facility] 12 Lead EKGon 09-02-2024 12 Lead EKG Normal [facility] Bedside Glucoseon 09-02-2024 FINGERSTICK GLU 112 mg/dL High 74-106 [facility] Comment on above: Result Comment: MARIUM ARRIAZA OF PATIENT CARE PER NURSING PROTOCOL Performed By: #### L 501.080 ####[facility] [address] [place], [address] FINGERSTICK GLU 188 mg/dL High 74-106 [facility] Comment on above: Result Comment: MARIUM GEMENT OF PATIENT CARE PER NURSING PROTOCOL Performed By: #### L 501.080 ####[facility] [address] [place], [address] FINGERSTICK GLU 77 mg/dL Normal 74-106 [facility] Comment on above: Result Comment: MARIUM GEMENT OF PATIENT CARE PER NURSING PROTOCOL Performed By: #### L 501.080 ####[facility] [address] [place], [address] FINGERSTICK GLU 162 mg/dL High 74-106 [facility] Comment on above: Result Comment: MARIUM GEMENT OF PATIENT CARE PER NURSING PROTOCOL Performed By: #### L 501.080 ####[facility] [address] [place], [address] FINGERSTICK GLU 201 mg/dL High 74-106 [facility] Comment on above: Result Comment: MARIUM GEMENT OF PATIENT CARE PER NURSING PROTOCOL Performed By: #### L 501.080 ####[facility] [address] [place], [address] Bilirubin, totalOrdered By: Shonda Gaston on 09-02-2024 Bilirubin [Mass/Vol] 0.55 mg/dL 0.00-1.30 [facility] CBC W/Diff, Automatedon Absolute Lymph 1.26 X10 3/uL Normal 0.83-4.51 [facility] Comment on above: Performed By: #### L 100.0100, L500.4050 ####[facility] [address] [place], [address] Absolute Neut 2.8 X10 3/uL Normal 2.0-7.7 [facility] Comment on above: Performed By: #### L 100.0100, L500.4050 ####[facility] [address] [place], [address] Basophils/100 WBC (Bld) 0.4 % Normal 0-1 [facility] Comment on above: Performed By: #### L 100.0100, L500.4050 ####[facility] [address] [place], [address] Eosinophils/100 WBC (Bld) 1.5 % Normal 0-5 [facility] Comment on above: Performed By: #### L 100.0100, L500.4050 ####[facility] [address] [place], [address] Erythrocyte distribution width (RBC) [Ratio] 14.0 % Normal 11.6-14.6 [facility] Comment on above: Performed By: #### L 100.0100, L500.4050 ####[facility] [address] [place], [address] Hematocrit (Bld) [Volume fraction] 33.8 % Low 40-54 [facility] Comment on above: Performed By: #### L 100.0100, L500.4050 ####[facility] [address] [place], [address] Hemoglobin (Bld) [Mass/Vol] 11.2 g/dL Low 13.0-16.5 [facility] Comment on above: Performed By: #### L 100.0100, L500.4050 ####[facility] [address] [place], [address] IG% 0.400 Normal 0.0-0.9 [facility] Comment on above: Result Comment: IG% - Immature Granulocytes (promyelocytes, myelocytes andmetamyelocytes) > 1% indicates that a LEFT SHIFT is Present. Performed By: #### L 100.0100, L500.4050 ####[facility] [address] [place], [address] Lymphocytes/100 WBC (Bld) 26.8 % Normal 19-41 [facility] Comment on above: Performed By: #### L 100.0100, L500.4050 ####[facility] [address] [place], [address] MCH (RBC) [Entitic mass] 31.3 pg Normal 27.0-32.0 [facility] Comment on above: Performed By: #### L 100.0100, L500.4050 ####[facility] [address] [place], [address] MCHC (RBC) [Mass/Vol] 33.1 g/dL Normal 32-36 [facility] Comment on above: Performed By: #### L 100.0100, L500.4050 ####[facility] [address] [place], [address] MCV (RBC) [Entitic vol] 94.4 fL High 80-94 [facility] Comment on above: Performed By: #### L 100.0100, L500.4050 ####[facility] [address] [place], [address] Monocytes/100 WBC (Bld) 10.8 % High 0-10 [facility] Comment on above: Performed By: #### L 100.0100, L500.4050 ####[facility] [address] [place], [address] Neutrophils/100 WBC (Bld) 60.1 % Normal 47-70 [facility] Comment on above: Performed By: #### L 100.0100, L500.4050 ####[facility] [address] [place], [address] Nucleated RBC (Bld) [#/Vol] 0 10*3/uL Normal 0-5 [facility] Comment on above: Performed By: #### L 100.0100, L500.4050 ####[facility] [address] [place], [address] Platelet mean volume (Bld) [Entitic vol] 13.3 fL High 6.2-12.0 [facility] Comment on above: Performed By: #### L 100.0100, L500.4050 ####[facility] [address] [place], [address] Platelets (Bld) [#/Vol] 159 10*3/uL Normal 150-450 [facility] Comment on above: Performed By: #### L 100.0100, L500.4050 ####[facility] [address] [place], [address] RBC (Bld) [#/Vol] 3.58 10*6/uL Low 4.6-6.2 [facility] Comment on above: Performed By: #### L 100.0100, L500.4050 ####[facility] [address] [place], [address] RDW SD 48.8 fl High 35.1-43.9 [facility] Comment on above: Performed By: #### L 100.0100, L500.4050 ####[facility] [address] [place], [address] WBC (Bld) [#/Vol] 4.7 10*3/uL Normal 4.4-11.0 [facility] Comment on above: Performed By: #### L 100.0100, L500.4050 ####[facility] [address] [place], [address] Chest without Contraston Chest without Contrast Normal [facility] Comprehensive Metabolic Prof ilon 09-02-2024 Albumin [Mass/Vol] 3.4 g/dL Normal 3.4-4.8 [facility] Comment on above: Performed By: #### L 100.0100, L500.4050 ####[facility] [address] [place], [address] Albumin/Globulin [Mass ratio] 0.9 {ratio} Normal 0.9-2.4 [facility] Comment on above: Performed By: #### L 100.0100, L500.4050 ####[facility] [address] [place], [address] ALK PHOS 117 U/L Normal 40-129 [facility] Comment on above: Performed By: #### L 100.0100, L500.4050 ####[facility] [address] [place], [address] ALT [Catalytic activity/Vol] 13 U/L Normal <=46 [facility] Comment on above: Performed By: #### L 100.0100, L500.4050 ####[facility] [address] [place], [address] AST [Catalytic activity/Vol] 21 U/L Normal <=37 [facility] Comment on above: Result Comment: Hemo lysis present, Results??could be affected.?? Performed By: #### L 100.0100, L500.4050 ####[facility] [address] [place], [address] Bilirubin [Mass/Vol] 0.55 mg/dL Normal 0.00-1.30 [facility] Comment on above: Performed By: #### L 100.0100, L500.4050 ####[facility] [address] [place], [address] BUN/CRE 26.4 RATIO High 10-20 [facility] Comment on above: Performed By: #### L 100.0100, L500.4050 ####[facility] [address] [place], [address] Calcium [Mass/Vol] 8.6 mg/dL Normal 7.6-11.0 [facility] Comment on above: Performed By: #### L 100.0100, L500.4050 ####[facility] [address] [place], [address] Chloride [Moles/Vol] 103 mmol/L Normal 98-108 [facility] Comment on above: Performed By: #### L 100.0100, L500.4050 ####[facility] [address] [place], [address] CO2 [Moles/Vol] 20.1 mmol/L Low 21.0-32.0 [facility] Comment on above: Performed By: #### L 100.0100, L500.4050 ####[facility] [address] [place], [address] Creatinine [Mass/Vol] 0.73 mg/dL Normal 0.70-1.20 [facility] Comment on above: Performed By: #### L 100.0100, L500.4050 ####[facility] [address] [place], [address] ECRCL 104.33 ml/min Normal 50-250 [facility] Comment on above: Performed By: #### L 100.0100, L500.4050 ####[facility] [address] [place], [address] GAP 11 Normal 5-15 [facility] Comment on above: Performed By: #### L 100.0100, L500.4050 ####[facility] [address] [place], [address] GFR/1.73 sq M.predicted among non-blacks MDRD (S/P/Bld) [Vol rate/Area] 94 mL/min/{1.73_m2} Normal >60 [facility] Comment on above: Result Comment: mL/m in/1.73m2 CKD-EPI Creatinine Equation (2020) Performed By: #### L 100.0100, L500.4050 ####[facility] [address] [place], [address] Globulin (S) [Mass/Vol] 3.9 g/dL Normal 2.2-4.2 [facility] Comment on above: Performed By: #### L 100.0100, L500.4050 ####[facility] [address] [place], [address] Glucose [Mass/Vol] 154 mg/dL High 70-99 [facility] Comment on above: Performed By: #### L 100.0100, L500.4050 ####[facility] [address] [place], [address] Potassium [Moles/Vol] 4.0 mmol/L Normal 3.3-5.1 [facility] Comment on above: Result Comment: Hemo lysis present, Results??could be affected.?? Performed By: #### L 100.0100, L500.4050 ####[facility] [address] [place], [address] Sodium [Moles/Vol] 134 mmol/L Normal 133-145 [facility] Comment on above: Performed By: #### L 100.0100, L500.4050 ####[facility] [address] [place], [address] T PROT 7.3 g/dL Normal 5.9-8.4 [facility] Comment on above: Performed By: #### L 100.0100, L500.4050 ####[facility] [address] [place], [address] Urea nitrogen [Mass/Vol] 19 mg/dL Normal 4-19 [facility] Comment on above: Performed By: #### L 100.0100, L500.4050 ####[facility] [address] [place], [address] L. pneumophila Ag Ql (U)Orde red By: Shonda Gaston on 09-02-2024 Legionella Antigen [facility] L499.0043on 09-02-2024 Trop T High Sen 21 ng/L Normal <=22 [facility] Comment on above: Performed By: #### L 499.0043 ####[facility] [address] [place], [address] L503.7505on 09-02-2024 Natriuretic peptide B (Bld) [Mass/Vol] 1097 pg/mL Normal <=1800 [facility] Comment on above: Result Comment: Hear t Failure Unlikely: < 300 pg/mLHeart Failure Likely< 50 Years: > 450 pg/mL50-75 Years: > 900 pg/mL>75 Years: > 1800 pg/mL Performed By: #### L 503.7505 ####[facility] [address] [place], [place], [id number] L509.7001on 09-02-2024 Procalcitonin < 0.02 Normal <=0.10 [facility] Comment on above: Order Comment: Comme nts: [...] of the patient. Performed By: #### L 501.5200, L509.7009 ####[facility] [address] [place], [place], [id number] Laboratory - Chemistry and C hemistry - challengeOrdered By: Shonda Gaston on 09-02-2024 AST [Catalytic activity/Vol] 21 U/L <38 [facility] Comment on above: Hemolysis present, R esults could be affected. Laboratory - Chemistry and C hemistry - challengeOrdered By: Wood Braxton on 09-02-2024 Natriuretic peptide B (Bld) [Mass/Vol] 1097 pg/mL <1800 [facility] Comment on above: Heart Failure Unlike ly: < 300 pg/mLHeart Failure Likely< 50 Years: > 450 pg/mL50-75 Years: > 900 pg/mL>75 Years: > 1800 pg/mL Magnesiumon 09-02-2024 Magnesium [Mass/Vol] 1.9 mg/dL Normal 1.5-2.2 [facility] Comment on above: Order Comment: Comme nts: may add to ED labs Performed By: #### L 501.5200, L509.7001 ####[facility] [address] [place], [place], [id number] No Panel InformationOrdered By: Shonda Gaston on 09-02-2024 21 U/L <38 [facility] No Panel InformationOrdered By: Wood Braxton on 09-02-2024 1097 pg/mL <1800 [facility] RESPIRATORY PANEL MOLECULARo n 09-02-2024 RP PANEL Normal [facility] Comment on above: Performed By: #### M 100.638 ####[facility] [address] [place], [place], [address] Serum globulin measurementOr dered By: Shonda Gaston on 09-02-2024 Globulin (S) [Mass/Vol] 3.9 g/dL 2.2-4.2 [facility] Serum or plasma alanine grace otransferase (ALT) measurementOrdered By: Shonda Gaston on 09-02-2024 ALT [Catalytic activity/Vol] 13 U/L <47 [facility] Serum or plasma albumin shweta urement (mass/volume)Ordered By: Shonda Gaston on 09-02-2024 Albumin [Mass/Vol] 3.4 g/dL 3.4-4.8 [facility] Serum or plasma albumin/glob ulin mass ratioOrdered By: Shonda Gaston on 09-02-2024 Albumin/Globulin [Mass ratio] 0.9 {ratio} 0.9-2.4 [facility] Serum or plasma alkaline gibson sphatase measurementOrdered By: Shonda Gaston on 09-02-2024 ALP [Catalytic activity/Vol] 117 U/L 40-129 [facility] Streptococcus pneumoniae ant igen assayOrdered By: Shonda Gaston on 09-02-2024 Streptococcus pneumoniae Antigen (M [facility] Total proteinOrdered By: Aut samyn Alek on 09-02-2024 Protein [Mass/Vol] 7.3 g/dL 5.9-8.4 [facility] Urine Legionella pneumophila antigen detectionOrdered By: Shonda Gaston on 09-02-2024 L. pneumophila Ag Ql (U) [facility] 12 Lead EKGon 09-01-2024 12 Lead EKG Normal [facility] Abdomen Single View (Portabl e)on 09-01-2024 Abdomen Single View (Portable) Normal [facility] Absolute neutrophil countOrd ered By: Jessi Calloway on 09-01-2024 Neutrophils (Bld) [#/Vol] 3.8 10*3/uL 2.0-7.7 [facility] Anion gap in Serum or Plasma Ordered By: Jessi Calloway on 09-01-2024 Anion gap [Moles/Vol] 12 mmol/L 5-15 [facility] BUN/creatinine ratioOrdered By: Jessi Calloway on 09-01-2024 Urea nitrogen/Creatinine [Mass ratio] 25.9 mg/mg High 10-20 [facility] Basic Metabolic Profile (BMP )on 09-01-2024 BUN/CRE 25.9 RATIO High -20 [facility] Comment on above: Performed By: #### L 501.2450, L500.2500, L501.4021, L100.0100 ####[facility] [address] [place], [address] Calcium [Mass/Vol] 9.2 mg/dL Normal 7.6-11.0 [facility] Comment on above: Performed By: #### L 501.2450, L500.2500, L501.4021, L100.0100 ####[facility] [address] [place], [address] Chloride [Moles/Vol] 102 mmol/L Normal 98-108 [facility] Comment on above: Performed By: #### L 501.2450, L500.2500, L501.4021, L100.0100 ####[facility] [address] [place], [address] CO2 [Moles/Vol] 22.6 mmol/L Normal 21.0-32.0 [facility] Comment on above: Performed By: #### L 501.2450, L500.2500, L501.4021, L100.0100 ####[facility] [address] [place], [address] Creatinine [Mass/Vol] 0.88 mg/dL Normal 0.70-1.20 [facility] Comment on above: Performed By: #### L 501.2450, L500.2500, L501.4021, L100.0100 ####[facility] [address] [place], [address] ECRCL 95.25 ml/min Normal 50-250 [facility] Comment on above: Performed By: #### L 501.2450, L500.2500, L501.4021, L100.0100 ####[facility] [address] [place], [address] GAP 12 Normal 5-15 [facility] Comment on above: Performed By: #### L 501.2450, L500.2500, L501.4021, L100.0100 ####[facility] [address] [place], [address] GFR/1.73 sq M.predicted among non-blacks MDRD (S/P/Bld) [Vol rate/Area] 89 mL/min/{1.73_m2} Normal >60 [facility] Comment on above: Result Comment: mL/m in/1.73m2 CKD-EPI Creatinine Equation (2020) Performed By: #### L 501.2450, L500.2500, L501.4021, L100.0100 ####[facility] [address] [place], [address] Glucose [Mass/Vol] 165 mg/dL High 70-99 [facility] Comment on above: Performed By: #### L 501.2450, L500.2500, L501.4021, L100.0100 ####[facility] [address] [place], [address] Potassium [Moles/Vol] 4.4 mmol/L Normal 3.3-5.1 [facility] Comment on above: Performed By: #### L 501.2450, L500.2500, L501.4021, L100.0100 ####[facility] [address] [place], [address] Sodium [Moles/Vol] 136 mmol/L Normal 133-145 [facility] Comment on above: Performed By: #### L 501.2450, L500.2500, L501.4021, L100.0100 ####[facility] [address] [place], [address] Urea nitrogen [Mass/Vol] 23 mg/dL High 4-19 [facility] Comment on above: Performed By: #### L 501.2450, L500.2500, L501.4021, L100.0100 ####[facility] [address] [place], [address] Basophil percentageOrdered B y: Jessi Calloway on 09-01-2024 Basophils/100 WBC (Bld) 0.4 % 0-1 [facility] CBC W/Diff, Automatedon Absolute Lymph 2.05 X10 3/uL Normal 0.83-4.51 [facility] Comment on above: Performed By: #### L 501.2450, L500.2500, L501.4021, L100.0100 ####[facility] [address] [place], [address] Absolute Neut 3.8 X10 3/uL Normal 2.0-7.7 [facility] Comment on above: Performed By: #### L 501.2450, L500.2500, L501.4021, L100.0100 ####[facility] [address] [place], [address] Basophils/100 WBC (Bld) 0.4 % Normal 0-1 [facility] Comment on above: Performed By: #### L 501.2450, L500.2500, L501.4021, L100.0100 ####[facility] [address] [place], [address] Eosinophils/100 WBC (Bld) 1.9 % Normal 0-5 [facility] Comment on above: Performed By: #### L 501.2450, L500.2500, L501.4021, L100.0100 ####[facility] [address] [place], [address] Erythrocyte distribution width (RBC) [Ratio] 14.2 % Normal 11.6-14.6 [facility] Comment on above: Performed By: #### L 501.2450, L500.2500, L501.4021, L100.0100 ####[facility] [address] [place], [address] Hematocrit (Bld) [Volume fraction] 35.0 % Low 40-54 [facility] Comment on above: Performed By: #### L 501.2450, L500.2500, L501.4021, L100.0100 ####[facility] [address] [place], [address] Hemoglobin (Bld) [Mass/Vol] 11.4 g/dL Low 13.0-16.5 [facility] Comment on above: Performed By: #### L 501.2450, L500.2500, L501.4021, L100.0100 ####[facility] [address] [place], [address] IG% 0.700 Normal 0.0-0.9 [facility] Comment on above: Result Comment: IG% - Immature Granulocytes (promyelocytes, myelocytes andmetamyelocytes) > 1% indicates that a LEFT SHIFT is Present. Performed By: #### L 501.2450, L500.2500, L501.4021, L100.0100 ####[facility] [address] [place], [address] Lymphocytes/100 WBC (Bld) 30.1 % Normal 19-41 [facility] Comment on above: Performed By: #### L 501.2450, L500.2500, L501.4021, L100.0100 ####[facility] [address] [place], [address] MCH (RBC) [Entitic mass] 30.9 pg Normal 27.0-32.0 [facility] Comment on above: Performed By: #### L 501.2450, L500.2500, L501.4021, L100.0100 ####[facility] [address] [place], [address] MCHC (RBC) [Mass/Vol] 32.6 g/dL Normal 32-36 [facility] Comment on above: Performed By: #### L 501.2450, L500.2500, L501.4021, L100.0100 ####[facility] [address] [place], [address] MCV (RBC) [Entitic vol] 94.9 fL High 80-94 [facility] Comment on above: Performed By: #### L 501.2450, L500.2500, L501.4021, L100.0100 ####[facility] [address] [place], [address] Monocytes/100 WBC (Bld) 10.7 % High 0-10 [facility] Comment on above: Performed By: #### L 501.2450, L500.2500, L501.4021, L100.0100 ####[facility] [address] [place], [address] Neutrophils/100 WBC (Bld) 56.2 % Normal 47-70 [facility] Comment on above: Performed By: #### L 501.2450, L500.2500, L501.4021, L100.0100 ####[facility] [address] [place], [address] Nucleated RBC (Bld) [#/Vol] 0 10*3/uL Normal 0-5 [facility] Comment on above: Performed By: #### L 501.2450, L500.2500, L501.4021, L100.0100 ####[facility] [address] [place], [address] Platelet mean volume (Bld) [Entitic vol] 12.8 fL High 6.2-12.0 [facility] Comment on above: Performed By: #### L 501.2450, L500.2500, L501.4021, L100.0100 ####[facility] [address] [place], [address] Platelets (Bld) [#/Vol] 131 10*3/uL Low 150-450 [facility] Comment on above: Performed By: #### L 501.2450, L500.2500, L501.4021, L100.0100 ####[facility] [address] [place], [address] RBC (Bld) [#/Vol] 3.69 10*6/uL Low 4.6-6.2 [facility] Comment on above: Performed By: #### L 501.2450, L500.2500, L501.4021, L100.0100 ####[facility] [address] [place], [address] RDW SD 49.3 fl High 35.1-43.9 [facility] Comment on above: Performed By: #### L 501.2450, L500.2500, L501.4021, L100.0100 ####[facility] [address] [place], [address] WBC (Bld) [#/Vol] 6.8 10*3/uL Normal 4.4-11.0 [facility] Comment on above: Performed By: #### L 501.2450, L500.2500, L501.4021, L100.0100 ####[facility] [address] [place], [address] Carbon dioxide, total [Moles /volume] in Central venous bloodOrdered By: Jessi Calloway on 09-01-2024 CO2 [Moles/Vol] 22.6 mmol/L 21.0-32.0 [facility] Cardiology Visit Reporton Cardiology Visit Report Normal [facility] Chest PA and Lateralon 09-01 Chest PA and Lateral Normal [facility] Chloride assayOrdered By: Oscar Calloway on 09-01-2024 Chloride [Moles/Vol] 102 mmol/L 98-108 [facility] Emergency Department Summary on 09-01-2024 Emergency Department Summary Normal [facility] Eosinophil percentageOrdered By: Jessi Calloway on 09-01-2024 Eosinophils/100 WBC (Bld) 1.9 % 0-5 [facility] Erythrocyte distribution wid th (RBC) [Ratio]Ordered By: Jessi Calloway on 09-01-2024 Erythrocyte distribution width (RBC) [Entitic vol] 49.3 fL High 35.1-43.9 [facility] Erythrocyte distribution wid th ratioOrdered By: Jessi Calloway on 09-01-2024 Erythrocyte distribution width (RBC) [Ratio] 14.2 % 11.6-14.6 [facility] Estimation of creatinine dennys aranceOrdered By: Jessi Calloway on 09-01-2024 Estimated Creatinine Clearance Calc 95.25 ml/min 50-250 [facility] GFR/1.73 sq M.predicted mikayla g non-blacks MDRD (S/P/Bld) [Vol rate/Area]Ordered By: Jessi Calloway on 09-01-2024 Estimated GFR (MDRD) Non-Af Amer 89 >60 [facility] Comment on above: mL/min/1.73m2 CKD-EP I Creatinine Equation (2020) H AND P Exam - Hospitaliston 09-01-2024 H&P Exam - Hospitalist Normal [facility] Hematocrit Auto (Bld) [Volum e fraction]Ordered By: Jessi Calloway on 09-01-2024 Hematocrit (Bld) [Volume fraction] 35.0 % Low 40-54 [facility] Hemoglobin measurementOrdere d By: Jessi Calloway on 09-01-2024 Hemoglobin (Bld) [Mass/Vol] 11.4 g/dL Low 13.0-16.5 [facility] Immature granulocytes/100 WB C Auto (Bld)Ordered By: Jessi Calloway on 09-01-2024 Immature granulocytes/100 WBC (Bld) 0.700 % 0.0-0.9 [facility] Comment on above: IG% - Immature Granu locytes (promyelocytes, myelocytes and metamyelocytes) > 1% indicates that a LEFT SHIFT is Present. L499.0042on 09-01-2024 Trop T High Sen 20 ng/L Normal <=22 [facility] Comment on above: Performed By: #### L 499.0042 ####[facility] [address] [place], [address] L501.4021on 09-01-2024 Trop T High Sen 23 ng/L High <=22 [facility] Comment on above: Performed By: #### L 501.2450, L500.2500, L501.4021, L100.0100 ####[facility] [address] [place], [address] Lipaseon 09-01-2024 Lipase [Catalytic activity/Vol] 21 U/L Normal 13-75 [facility] Comment on above: Result Comment: Plea se note:LIPASE revised reference range effective 22.New Lipase methodology. Expected to produce lower valuesthan the previous assay method.NEW Reference Range: 13 - 75 U/L Performed By: #### L 501.2450, L500.2500, L501.4021, L100.0100 ####[facility] [address] [place], [address] Lipase measurementOrdered By : Jessi Calloway on 09-01-2024 Lipase [Catalytic activity/Vol] 21 U/L 13-75 [facility] Comment on above: Please note:LIPASE r evised reference range effective 22. New Lipase methodology. Expected to produce lower values than the previous assay method. NEW Reference Range: 13 - 75 U/L Lymphocytes Auto (Unsp spec) [#/Vol]Ordered By: Jessi Calloway on 09-01-2024 Lymphocytes (Bld) [#/Vol] 2.05 10*3/uL 0.83-4.51 [facility] Lymphocytes/100 WBC Auto (Un sp spec)Ordered By: Jessi Calloway on 09-01-2024 Lymphocytes/100 WBC (Bld) 30.1 % 19-41 [facility] MCV (mean corpuscular volume ) determinationOrdered By: Jessi Calloway on 09-01-2024 MCV (RBC) [Entitic vol] 94.9 fL High 80-94 [facility] Mean corpuscular hemoglobin (MCH) determinationOrdered By: Jessi Calloway on 09-01-2024 MCH (RBC) [Entitic mass] 30.9 pg 27.0-32.0 [facility] Mean corpuscular hemoglobin concentration (MCHC) determinationOrdered By: Jessi Calloway on 09-01-2024 MCHC (RBC) [Mass/Vol] 32.6 g/dL 32-36 [facility] Mean platelet volume determi nationOrdered By: Jessi Calloway on 09-01-2024 Platelet mean volume (Bld) [Entitic vol] 12.8 fL High 6.2-12.0 [facility] Monocyte percentageOrdered B y: Jessi Calloway on 09-01-2024 Monocytes/100 WBC (Bld) 10.7 % High 0-10 [facility] Neutrophil percentageOrdered By: Jessi Calloway on 09-01-2024 Neutrophils/100 WBC (Bld) 56.2 % 47-70 [facility] No Panel InformationOrdered By: Shonda Gaston on 09-01-2024 Procalcitonin < 0.02 ng/mL <0.11 [facility] Comment on above: Interpretation:<0.10 -0.25 ng/mL: Antibiotic [...] of the patient. < 0.02 ng/mL <0.11 [facility] No Panel InformationOrdered By: Jessi Calloway on 09-01-2024 Troponin T High Sensitivity 23 ng/L High <22 [facility] 23 ng/L High <22 [facility] Nucleated red blood cell per centageOrdered By: Jessi Calloway on 09-01-2024 Nucleated RBC/100 WBC (Bld) [Ratio] 0 % 0-5 [facility] Platelet countOrdered By: Oscar Calloway on 09-01-2024 Platelets (Bld) [#/Vol] 131 10*3/uL Low 150-450 [facility] Potassium (Unsp spec) [Mass/ Vol]Ordered By: Jessi Calloway on 09-01-2024 Potassium [Moles/Vol] 4.4 mmol/L 3.3-5.1 [facility] RBC Auto (Bld) [#/Vol]Ordere d By: Jessi Calloway on 09-01-2024 RBC (Bld) [#/Vol] 3.69 10*6/uL Low 4.6-6.2 [facility] Respiratory pathogens DNA an d RNA panel ZOE+probe (Resp)Ordered By: Shonda Gaston on 09-01-2024 Respiratory Panel (PCR) [facility] Respiratory pathogens detect ion panel by molecular detection methodOrdered By: Shonda Gaston on 09-01-2024 Respiratory pathogens DNA and RNA panel ZOE+probe (Resp) [facility] Serum creatinine measurement (mass/volume)Ordered By: Jessi Calloway on 09-01-2024 Creatinine [Mass/Vol] 0.88 mg/dL 0.70-1.20 [facility] Serum glucose measurement (m ass/volume)Ordered By: Jessi Calloway on 09-01-2024 Glucose [Mass/Vol] 165 mg/dL High 70-99 [facility] Serum or plasma calcium shweta urement (mass/volume)Ordered By: Jessi Calloway on 09-01-2024 Calcium [Mass/Vol] 9.2 mg/dL 7.6-11.0 [facility] Serum or plasma urea nitroge n measurement (mass/volume)Ordered By: Jessi Calloway on 09-01-2024 Urea nitrogen [Mass/Vol] 23 mg/dL High 4-19 [facility] Sodium levelOrdered By: Jessi Calloway on 09-01-2024 Sodium [Moles/Vol] 136 mmol/L 133-145 [facility] Troponin T.cardiac High sens itivity method [Mass/Vol]Ordered By: Jessi Calloway on 09-01-2024 Troponin T High Sensitivity 4 Hour 21 ng/L <22 [facility] Troponin T High Sensitivity 2 Hour 20 ng/L <22 [facility] Troponin T.cardiac [Mass/vol ume] in Serum or Plasma by High sensitivity methodOrdered By: Jessi Calloway on 09-01-2024 Troponin T.cardiac High sensitivity method [Mass/Vol] 21 ng/L <22 [facility] Troponin T.cardiac High sensitivity method [Mass/Vol] 20 ng/L <22 [facility] White blood cell (WBC) count Ordered By: Jessi Calloway on 09-01-2024 WBC (Bld) [#/Vol] 6.8 10*3/uL 4.4-11.0 [facility] Pulmonary Visit Reporton Pulmonary Visit Report Normal [facility] [facility] Platelet countOrdered By: Nitin Toure on 07-17-2024 Platelets (Bld) [#/Vol] 210 10*3/uL 150-450 [facility] Bilirubin directOrdered By: Danni Davis on 07-10-2024 Bilirubin.direct [Mass/Vol] 0.42 mg/dL High 0.00-0.30 [facility] Bilirubin, totalOrdered By: Danni Davis on 07-10-2024 Bilirubin [Mass/Vol] 1.00 mg/dL 0.20-1.00 [facility] Comment on above: For patients on eltr ombopag therapy, use of Dimension Oxford TBIL is not recommended. High density lipoprotein (HD L) measurementOrdered By: Danni Davis on 07-10-2024 Cholesterol in HDL [Mass/Vol] 58 mg/dL >40 [facility] Comment on above: The drugs N-Acetylcy steine and Metamizole may falsely depress this assay. Reference Range HDL <40 mg/dL Low HDL Cholesterol HDL >or= 60 mg/dL High HDL Cholesterol High density lipoprotein (HDL) measurement 58 mg/dL >40 [facility] - Chemistry and C hemistry - challengeOrdered By: Danni Davis on 07-10-2024 AST [Catalytic activity/Vol] 23 U/L 15-37 [facility] Lipid Profileon 07-10-2024 Cholesterol [Mass/Vol] 116 mg/dL Normal 200 [facility] Comment on above: Result Comment: <200 mg/dL Desirable 200-240 mg/dL Borderline >240 mg/dL High Risk Performed By: #### L 500.3400, L500.4100 ####[facility] [address] [place], [address] Cholesterol in HDL [Mass/Vol] 58 mg/dL Normal [facility] Comment on above: Result Comment: The drugs N-Acetylcysteine and Metamizole may falselydepress this assay. Reference Range HDL <40 mg/dL Low HDL Cholesterol HDL >or= 60 mg/dL High HDL Cholesterol Performed By: #### L 500.3400, L500.4100 ####[facility] [address] [place], [address] Cholesterol in LDL [Mass/Vol] 42 mg/dL Normal 0-130 [facility] Comment on above: Performed By: #### L 500.3400, L500.4100 ####[facility] [address] [place], [address] Cholesterol in VLDL [Mass/Vol] 16 mg/dL Normal 5-40 [facility] Comment on above: Performed By: #### L 500.3400, L500.4100 ####[facility] [address] [place], [address] Triglyceride [Mass/Vol] 82 mg/dL Normal [facility] Comment on above: Result Comment: The drugs N-Acetylcysteine and Metamizole may falselydepress this assay.Serum Triglycerides Reference Interval Normal <150 mg/dL Borderline high 150 - 199 mg/dL High 200 - 499 mg/dL Very High > or = 500 mg/dL Performed By: #### L 500.3400, L500.4100 ####[facility] [address] [place], [address] Liver Profileon 07-10-2024 Albumin [Mass/Vol] 2.7 g/dL Low 3.2-5.0 [facility] Comment on above: Performed By: #### L 500.3400, L500.4100 ####[facility] [address] [place], [address] ALK P 153 U/L High 45-117 [facility] Comment on above: Performed By: #### L 500.3400, L500.4100 ####[facility] [address] [place], [address] ALT [Catalytic activity/Vol] 18 U/L Normal 16-61 [facility] Comment on above: Performed By: #### L 500.3400, L500.4100 ####[facility] [address] [place], [address] AST [Catalytic activity/Vol] 23 U/L Normal 15-37 [facility] Comment on above: Performed By: #### L 500.3400, L500.4100 ####[facility] [address] [place], [address] Bilirubin [Mass/Vol] 1.00 mg/dL Normal 0.20-1.00 [facility] Comment on above: Result Comment: For patients on eltrombopag therapy, use of Dimension [place] TBIL is not recommended. Performed By: #### L 500.3400, L500.4100 ####[facility] [address] [place], [address] Bilirubin.direct [Mass/Vol] 0.42 mg/dL High 0.00-0.30 [facility] Comment on above: Performed By: #### L 500.3400, L500.4100 ####[facility] [address] [place], [address] Globulin (S) [Mass/Vol] 4.7 g/dL High 2.2-4.2 [facility] Comment on above: Performed By: #### L 500.3400, L500.4100 ####[facility] [address] [place], [address] T PROT 7.4 g/dL Normal 6.4-8.2 [facility] Comment on above: Performed By: #### L 500.3400, L500.4100 ####[facility] [address] [place], [address] Low density lipoprotein (LDL ) cholesterol measurementOrdered By: Danni Davis on 07-10-2024 Cholesterol in LDL [Mass/Vol] 42 mg/dL 0-130 [facility] Low density lipoprotein (LDL) cholesterol measurement 42 mg/dL 0-130 [facility] No Panel InformationOrdered By: Danni Davis on 07-10-2024 23 U/L 15-37 [facility] Serum globulin measurementOr dered By: Danni Davis on 07-10-2024 Globulin (S) [Mass/Vol] 4.7 g/dL High 2.2-4.2 [facility] Serum or plasma alanine grace otransferase (ALT) measurementOrdered By: Danni Davis on 07-10-2024 ALT [Catalytic activity/Vol] 18 U/L 16-61 [facility] Serum or plasma albumin shweta urement (mass/volume)Ordered By: Danni Davis on 07-10-2024 Albumin [Mass/Vol] 2.7 g/dL Low 3.2-5.0 [facility] Serum or plasma alkaline gibson sphatase measurementOrdered By: Danni Davis on 07-10-2024 ALP [Catalytic activity/Vol] 153 U/L High 45-117 [facility] Serum or plasma cholesterol measurement (mass/volume)Ordered By: Danni Davis on 07-10-2024 Cholesterol [Mass/Vol] 116 mg/dL <200 [facility] Comment on above: <200 mg/dL Desirable 200-240 mg/dL Borderline >240 mg/dL High Risk Total proteinOrdered By: Luca Davis on 07-10-2024 Protein [Mass/Vol] 7.4 g/dL 6.4-8.2 [facility] Triglycerides measurementOrd ered By: Danni Davis on 07-10-2024 Triglyceride [Mass/Vol] 82 mg/dL <199 [facility] Comment on above: The drugs N-Acetylcy steine and Metamizole may falsely depress this assay.Serum Triglycerides Reference Interval Normal <150 mg/dL Borderline high 150 - 199 mg/dL High 200 - 499 mg/dL Very High > or = 500 mg/dL Very low density lipoprotein (VLDL) cholesterol measurementOrdered By: Danni Davis on 07-10-2024 Very low density lipoprotein (VLDL) cholesterol measurement 16 mg/dL 5-40 [facility] VLDL Cholesterol 16 mg/dL 5-40 [facility] 12 Lead EKGon 07-07-2024 12 Lead EKG Normal [facility] Absolute lymphocyte countOrd ered By: Dhiraj Carlton on 07-07-2024 Lymphocytes Auto (Unsp spec) [#/Vol] 1.48 10*3/uL 0.83-4.51 [facility] Absolute neutrophil countOrd ered By: Dhiraj Carlton on 07-07-2024 Neutrophils (Bld) [#/Vol] 3.8 10*3/uL 2.0-7.7 [facility] Activated partial thrombopla stin time (aPTT) in platelet poor plasma by coagulation aOrdered By: Dhiraj Carlton on 07-07-2024 aPTT Coag (PPP) [Time] 39.3 s High 24.1-36.2 [facility] Automated lymphocyte count a s percentage of total leukocytesOrdered By: Dhiraj Carlton on 07-07-2024 Lymphocytes/100 WBC Auto (Unsp spec) 24.6 % 19-41 [facility] Basic Metabolic Profile (BMP )on 07-07-2024 BUN/CRE 18.6 RATIO Normal 10-20 [facility] Comment on above: Performed By: #### L 501.2450, L100.0100, L500.3400, L300.4310, L501.5200, L500.2500, L503.6005, L300.3900 ####[facility] [address] [place], [address] CA,Total 8.9 mg/dL Normal 8.5-10.1 [facility] Comment on above: Performed By: #### L 501.2450, L100.0100, L500.3400, L300.4310, L501.5200, L500.2500, L503.6005, L300.3900 ####[facility] [address] [place], [address] Chloride [Moles/Vol] 102 mmol/L Normal 98-107 [facility] Comment on above: Performed By: #### L 501.2450, L100.0100, L500.3400, L300.4310, L501.5200, L500.2500, L503.6005, L300.3900 ####[facility] [address] [place], [address] CO2 [Moles/Vol] 28.0 mmol/L Normal 21.0-32.0 [facility] Comment on above: Performed By: #### L 501.2450, L100.0100, L500.3400, L300.4310, L501.5200, L500.2500, L503.6005, L300.3900 ####[facility] [address] [place], [place], [id number] Creatinine [Mass/Vol] 1.02 mg/dL Normal 0.70-1.30 [facility] Comment on above: Result Comment: The validity of the calculated GFR GFRAA in patients over70 years has not been determined. Clinical correlation isessential. Performed By: #### L 501.2450, L100.0100, L500.3400, L300.4310, L501.5200, L500.2500, L503.6005, L300.3900 ####[facility] [address] [place], [address] ECRCL 83.71 ml/min Normal [facility] Comment on above: Performed By: #### L 501.2450, L100.0100, L500.3400, L300.4310, L501.5200, L500.2500, L503.6005, L300.3900 ####[facility] [address] [place], [place], [id number] EST GFR - AA 91 mL/min Normal >60 [facility] Comment on above: Result Comment: Afri can [place] GFR Calc Performed By: #### L 501.2450, L100.0100, L500.3400, L300.4310, L501.5200, L500.2500, L503.6005, L300.3900 ####[facility] [address] [place], [address] GAP 8 Normal 5-15 [facility] Comment on above: Performed By: #### L 501.2450, L100.0100, L500.3400, L300.4310, L501.5200, L500.2500, L503.6005, L300.3900 ####[facility] [address] [place], [address] GFR/1.73 sq M.predicted among non-blacks MDRD (S/P/Bld) [Vol rate/Area] 75 mL/min/{1.73_m2} Normal >60 [facility] Comment on above: Result Comment: Non- GFR Calc Performed By: #### L 501.2450, L100.0100, L500.3400, L300.4310, L501.5200, L500.2500, L503.6005, L300.3900 ####[facility] [address] [place], [address] Glucose [Mass/Vol] 137 mg/dL High 74-106 [facility] Comment on above: Result Comment: Fast ing Glucose result greater than or equal to 126 mg/dLsuggests DIABETES MELLITUS per A.D.A. criteria. Performed By: #### L 501.2450, L100.0100, L500.3400, L300.4310, L501.5200, L500.2500, L503.6005, L300.3900 ####[facility] [address] [place], [address] Potassium [Moles/Vol] 3.8 mmol/L Normal 3.5-5.1 [facility] Comment on above: Performed By: #### L 501.2450, L100.0100, L500.3400, L300.4310, L501.5200, L500.2500, L503.6005, L300.3900 ####[facility] [address] [place], [address] Sodium [Moles/Vol] 138 mmol/L Normal 136-145 [facility] Comment on above: Performed By: #### L 501.2450, L100.0100, L500.3400, L300.4310, L501.5200, L500.2500, L503.6005, L300.3900 ####[facility] [address] [place], [address] Urea nitrogen [Mass/Vol] 19 mg/dL High 7-18 [facility] Comment on above: Performed By: #### L 501.2450, L100.0100, L500.3400, L300.4310, L501.5200, L500.2500, L503.6005, L300.3900 ####[facility] [address] [place], [place], [id number] Basophil percentageOrdered B y: Dhiraj Carlton on 07-07-2024 Basophils/100 WBC (Bld) 0.7 % 0-1 [facility] Bilirubin directOrdered By: Dhiraj Carlton on 07-07-2024 Bilirubin.direct [Mass/Vol] 0.43 mg/dL High 0.00-0.30 [facility] Bilirubin, totalOrdered By: Dhiraj Carlton on 07-07-2024 Bilirubin [Mass/Vol] 1.00 mg/dL 0.20-1.00 [facility] Comment on above: For patients on eltr ombopag therapy, use of Dimension Oxford TBIL is not recommended. Blood urea nitrogen (BUN)/cr eatinine ratioOrdered By: Dhiraj Carlton on 07-07-2024 Urea nitrogen/Creatinine [Mass ratio] 18.6 mg/mg 10-20 [facility] CBC W/Diff, Automatedon Absolute Lymph 1.48 X10 3/uL Normal 0.83-4.51 [facility] Comment on above: Performed By: #### L 501.2450, L100.0100, L500.3400, L300.4310, L501.5200, L500.2500, L503.6005, L300.3900 ####[facility] [address] [place], [place], [id number] Absolute Neut 3.8 X10 3/uL Normal 2.0-7.7 [facility] Comment on above: Performed By: #### L 501.2450, L100.0100, L500.3400, L300.4310, L501.5200, L500.2500, L503.6005, L300.3900 ####[facility] [address] [place], [address] Basophils/100 WBC (Bld) 0.7 % Normal 0-1 [facility] Comment on above: Performed By: #### L 501.2450, L100.0100, L500.3400, L300.4310, L501.5200, L500.2500, L503.6005, L300.3900 ####[facility] [address] [place], [address] Eosinophils/100 WBC (Bld) 2.0 % Normal 0-5 [facility] Comment on above: Performed By: #### L 501.2450, L100.0100, L500.3400, L300.4310, L501.5200, L500.2500, L503.6005, L300.3900 ####[facility] [address] [place], [address] Erythrocyte distribution width (RBC) [Ratio] 16.0 % High 11.6-14.6 [facility] Comment on above: Performed By: #### L 501.2450, L100.0100, L500.3400, L300.4310, L501.5200, L500.2500, L503.6005, L300.3900 ####[facility] [address] [place], [address] Hematocrit (Bld) [Volume fraction] 34.3 % Low 40-54 [facility] Comment on above: Performed By: #### L 501.2450, L100.0100, L500.3400, L300.4310, L501.5200, L500.2500, L503.6005, L300.3900 ####[facility] [address] [place], [address] Hemoglobin (Bld) [Mass/Vol] 11.1 g/dL Low 13.0-16.5 [facility] Comment on above: Performed By: #### L 501.2450, L100.0100, L500.3400, L300.4310, L501.5200, L500.2500, L503.6005, L300.3900 ####[facility] [address] [place], [address] IG% 1.500 High 0.0-0.9 [facility] Comment on above: Result Comment: IG% - Immature Granulocytes (promyelocytes, myelocytes andmetamyelocytes) > 1% indicates that a LEFT SHIFT is Present. Performed By: #### L 501.2450, L100.0100, L500.3400, L300.4310, L501.5200, L500.2500, L503.6005, L300.3900 ####[facility] [address] [place], [address] Lymphocytes/100 WBC (Bld) 24.6 % Normal 19-41 [facility] Comment on above: Performed By: #### L 501.2450, L100.0100, L500.3400, L300.4310, L501.5200, L500.2500, L503.6005, L300.3900 ####[facility] [address] [place], [address] MCH (RBC) [Entitic mass] 31.5 pg Normal 27.0-32.0 [facility] Comment on above: Performed By: #### L 501.2450, L100.0100, L500.3400, L300.4310, L501.5200, L500.2500, L503.6005, L300.3900 ####[facility] [address] [place], [address] MCHC (RBC) [Mass/Vol] 32.4 g/dL Normal 32-36 [facility] Comment on above: Performed By: #### L 501.2450, L100.0100, L500.3400, L300.4310, L501.5200, L500.2500, L503.6005, L300.3900 ####[facility] [address] [place], [address] MCV (RBC) [Entitic vol] 97.4 fL High 80-94 [facility] Comment on above: Performed By: #### L 501.2450, L100.0100, L500.3400, L300.4310, L501.5200, L500.2500, L503.6005, L300.3900 ####[facility] [address] [place], [address] Monocytes/100 WBC (Bld) 8.5 % Normal 0-10 [facility] Comment on above: Performed By: #### L 501.2450, L100.0100, L500.3400, L300.4310, L501.5200, L500.2500, L503.6005, L300.3900 ####[facility] [address] [place], [address] Neutrophils/100 WBC (Bld) 62.7 % Normal 47-70 [facility] Comment on above: Performed By: #### L 501.2450, L100.0100, L500.3400, L300.4310, L501.5200, L500.2500, L503.6005, L300.3900 ####[facility] [address] [place], [address] Nucleated RBC (Bld) [#/Vol] 0.5 10*3/uL Normal 0-5 [facility] Comment on above: Performed By: #### L 501.2450, L100.0100, L500.3400, L300.4310, L501.5200, L500.2500, L503.6005, L300.3900 ####[facility] [address] [place], [address] Platelet mean volume (Bld) [Entitic vol] 13.6 fL High 6.2-12.0 [facility] Comment on above: Performed By: #### L 501.2450, L100.0100, L500.3400, L300.4310, L501.5200, L500.2500, L503.6005, L300.3900 ####[facility] [address] [place], [address] Platelets (Bld) [#/Vol] 226 10*3/uL Normal 150-450 [facility] Comment on above: Performed By: #### L 501.2450, L100.0100, L500.3400, L300.4310, L501.5200, L500.2500, L503.6005, L300.3900 ####[facility] [address] [place], [address] RBC (Bld) [#/Vol] 3.52 10*6/uL Low 4.6-6.2 [facility] Comment on above: Performed By: #### L 501.2450, L100.0100, L500.3400, L300.4310, L501.5200, L500.2500, L503.6005, L300.3900 ####[facility] [address] [place], [address] RDW SD 55.0 fl High 35.1-43.9 [facility] Comment on above: Performed By: #### L 501.2450, L100.0100, L500.3400, L300.4310, L501.5200, L500.2500, L503.6005, L300.3900 ####[facility] [address] [place], [address] WBC (Bld) [#/Vol] 6.0 10*3/uL Normal 4.4-11.0 [facility] Comment on above: Performed By: #### L 501.2450, L100.0100, L500.3400, L300.4310, L501.5200, L500.2500, L503.6005, L300.3900 ####[facility] [address] [place], [place], [id number] CTA Chst, Abd, Pel W and/or WOon 07-07-2024 CTA Chst, Abd, Pel W and/or WO Normal [facility] Carbon dioxide measurementOr dered By: Dhiraj Carlton on 07-07-2024 CO2 [Moles/Vol] 28.0 mmol/L 21.0-32.0 [facility] Chloride measurementOrdered By: Dhiraj Carlton on 07-07-2024 Chloride [Moles/Vol] 102 mmol/L 98-107 [facility] Emergency Department Summary on 07-07-2024 Emergency Department Summary Normal [facility] Eosinophil percentageOrdered By: Dhiraj Carlton on 07-07-2024 Eosinophils/100 WBC (Bld) 2.0 % 0-5 [facility] Erythrocyte distribution wid th (RBC) [Ratio]Ordered By: Dhiraj Carlton on 07-07-2024 Erythrocyte distribution width (RBC) [Entitic vol] 55.0 fL High 35.1-43.9 [facility] Erythrocyte distribution wid th ratioOrdered By: Dhiraj Carlton on 07-07-2024 Erythrocyte distribution width (RBC) [Ratio] 16.0 % High 11.6-14.6 [facility] Erythrocyte distribution wid th standard deviationOrdered By: Dhiraj Carlton on 07-07-2024 Erythrocyte distribution width (RBC) [Ratio] 55.0 fl High 35.1-43.9 [facility] Estimated glomerular filtrat ion rate (GFR) AmericanOrdered By: Dhiraj Carlton on 07-07-2024 Estimated GFR (MDRD) Amer 91 mL/min >60 [facility] Comment on above: GFR Calc Estimation of creatinine dennys aranceOrdered By: Dhiraj Carlton on 07-07-2024 Estimated Creatinine Clearance Calc 83.71 ml/min [facility] Glomerular filtration rate ( GFR) estimationOrdered By: Dhiraj Carlton on 07-07-2024 Estimated GFR (MDRD) Non-Af Amer 75 mL/min >60 [facility] Comment on above: Non- GFR Calc GFR/1.73 sq M.predicted among non-blacks MDRD (S/P/Bld) [Vol rate/Area] 75 mL/min/{1.73_m2} >60 [facility] Glucose measurementOrdered B y: Dhiraj Carlton on 07-07-2024 Glucose [Mass/Vol] 137 mg/dL High 74-106 [facility] Comment on above: Fasting Glucose resu lt greater than or equal to 126 mg/dL suggests DIABETES MELLITUS per A.D.A. criteria. Hematocrit Auto (Bld) [Volum e fraction]Ordered By: Dhiraj Carlton on 07-07-2024 Hematocrit (Bld) [Volume fraction] 34.3 % Low 40-54 [facility] Hemoglobin measurementOrdere d By: Dhiraj Carlton on 07-07-2024 Hemoglobin (Bld) [Mass/Vol] 11.1 g/dL Low 13.0-16.5 [facility] Immature granulocytes/100 WB C Auto (Bld)Ordered By: Dhiraj Carlton on 07-07-2024 Immature granulocytes/100 WBC (Bld) 1.500 % High 0.0-0.9 [facility] Comment on above: IG% - Immature Granu locytes (promyelocytes, myelocytes and metamyelocytes) > 1% indicates that a LEFT SHIFT is Present. International normalized rat io (INR) calculationOrdered By: Dhiraj Carlton on 07-07-2024 INR Coag (Bld) [Relative time] 1.9 {INR} [facility] - Chemistry and C hemistry - challengeOrdered By: Dhiraj Carlton on 07-07-2024 AST [Catalytic activity/Vol] 19 U/L 15-37 [facility] Lactic acid measurementOrder ed By: Dhiraj Carlton on 07-07-2024 Lactate [Moles/Vol] 2.0 mmol/L Normal 0.4-1.9 [facility] Comment on above: Critical Result(s) C alled at: 02:57:31 07/07/2024 by: ROSEANNA KUHN TO RN OST. Results read back by same. Order Comment: Y Result Comment: Crit ical Result(s) Called at: 02:57:31 07/07/2024 by:ROSEANNA KUHN TO MG BLUE. Results read back by same. Performed By: #### L 501.2450, L100.0100, L500.3400, L300.4310, L501.5200, L500.2500, L503.6005, L300.3900 ####[facility] [address] [place], [place], [phone] Lipaseon 07-07-2024 Lipase [Catalytic activity/Vol] 21 U/L Normal - [facility] Comment on above: Result Comment: Marcelle fritz note:LIPASE revised reference range effective 22.New Lipase methodology. Expected to produce lower valuesthan the previous assay method.NEW Reference Range: 13 - 75 U/L Performed By: #### L 501.2450, L100.0100, L500.3400, L300.4310, L501.5200, L500.2500, L503.6005, L300.3900 ####[facility] [address] [place], [address] Lipase measurementOrdered By : Dhiraj Carlton on 07-07-2024 Lipase [Catalytic activity/Vol] 21 U/L [address] [place] [address] Comment on above: Please note:LIPASE r evised reference range effective 22. New Lipase methodology. Expected to produce lower values than the previous assay method. NEW Reference Range: 13 - 75 U/L Liver Profileon 07-07-2024 Albumin [Mass/Vol] 2.7 g/dL Low 3.2-5.0 [facility] Comment on above: Performed By: #### L 501.2450, L100.0100, L500.3400, L300.4310, L501.5200, L500.2500, L503.6005, L300.3900 ####[facility] [address] [place], [address] ALK P 133 U/L High 45-117 [facility] Comment on above: Performed By: #### L 501.2450, L100.0100, L500.3400, L300.4310, L501.5200, L500.2500, L503.6005, L300.3900 ####[facility] [address] [place], [address] ALT [Catalytic activity/Vol] 19 U/L Normal 16-61 [facility] Comment on above: Performed By: #### L 501.2450, L100.0100, L500.3400, L300.4310, L501.5200, L500.2500, L503.6005, L300.3900 ####[facility] [address] [place], [address] AST [Catalytic activity/Vol] 19 U/L Normal 15-37 [facility] Comment on above: Performed By: #### L 501.2450, L100.0100, L500.3400, L300.4310, L501.5200, L500.2500, L503.6005, L300.3900 ####[facility] [address] [place], [place], [id number] Bilirubin [Mass/Vol] 1.00 mg/dL Normal 0.20-1.00 [facility] Comment on above: Result Comment: For patients on eltrombopag therapy, use of Dimension [place] TBIL is not recommended. Performed By: #### L 501.2450, L100.0100, L500.3400, L300.4310, L501.5200, L500.2500, L503.6005, L300.3900 ####[facility] [address] [place], [place], [phone] Bilirubin.direct [Mass/Vol] 0.43 mg/dL High 0.00-0.30 [facility] Comment on above: Performed By: #### L 501.2450, L100.0100, L500.3400, L300.4310, L501.5200, L500.2500, L503.6005, L300.3900 ####[facility] [address] [place], [place], [id number] Globulin (S) [Mass/Vol] 5.0 g/dL High 2.2-4.2 [facility] Comment on above: Performed By: #### L 501.2450, L100.0100, L500.3400, L300.4310, L501.5200, L500.2500, L503.6005, L300.3900 ####[facility] [address] [place], [address] T PROT 7.7 g/dL Normal 6.4-8.2 [facility] Comment on above: Performed By: #### L 501.2450, L100.0100, L500.3400, L300.4310, L501.5200, L500.2500, L503.6005, L300.3900 ####[facility] [address] [place], [place], [id number] Lymphocytes Auto (Unsp spec) [#/Vol]Ordered By: Dhiraj Carlton on 07-07-2024 Lymphocytes (Bld) [#/Vol] 1.48 10*3/uL 0.83-4.51 [facility] Lymphocytes/100 WBC Auto (Un sp spec)Ordered By: Dhiraj Carlton on 07-07-2024 Lymphocytes/100 WBC (Bld) 24.6 % 19-41 [facility] MCV (mean corpuscular volume ) determinationOrdered By: Dhiraj Carlton on 07-07-2024 MCV (RBC) [Entitic vol] 97.4 fL High 80-94 [facility] Magnesiumon 07-07-2024 Magnesium [Mass/Vol] 1.9 mg/dL Normal 1.6-2.6 [facility] Comment on above: Performed By: #### L 501.2450, L100.0100, L500.3400, L300.4310, L501.5200, L500.2500, L503.6005, L300.3900 ####[facility] [address] [place], [place], [id number] Magnesium measurementOrdered By: Dhiraj Carlton on 07-07-2024 Magnesium [Mass/Vol] 1.9 mg/dL 1.6-2.6 [facility] Mean corpuscular hemoglobin (MCH) determinationOrdered By: Dhiraj Carlton on 07-07-2024 MCH (RBC) [Entitic mass] 31.5 pg 27.0-32.0 [facility] Mean corpuscular hemoglobin concentration (MCHC) determinationOrdered By: Dhiraj Carlton on 07-07-2024 MCHC (RBC) [Mass/Vol] 32.4 g/dL 32-36 [facility] Mean platelet volume determi nationOrdered By: Dhiraj Carlton on 07-07-2024 Platelet mean volume (Bld) [Entitic vol] 13.6 fL High 6.2-12.0 [facility] Monocyte percentageOrdered B y: Dhiraj Carlton on 07-07-2024 Monocytes/100 WBC (Bld) 8.5 % 0-10 [facility] Neutrophil percentageOrdered By: Dhiraj Carlton on 07-07-2024 Neutrophils/100 WBC (Bld) 62.7 % 47-70 [facility] No Panel InformationOrdered By: Dhiraj Carlton on 07-07-2024 19 U/L 15-37 [facility] Nucleated red blood cell per centageOrdered By: Dhiraj Carlton on 07-07-2024 Nucleated RBC/100 WBC (Bld) [Ratio] 0.5 % 0-5 [facility] Partial Thromboplast Timeon 07-07-2024 aPTT Coag (Bld) [Time] 39.3 s High 24.1-36.2 [facility] Comment on above: Performed By: #### L 501.2450, L100.0100, L500.3400, L300.4310, L501.5200, L500.2500, L503.6005, L300.3900 ####[facility] [id number] [place], [place], [id number] Platelet countOrdered By: Marissa Carlton on 07-07-2024 Platelets (Bld) [#/Vol] 226 10*3/uL 150-450 [facility] Potassium measurementOrdered By: Dhiraj Carlton on 07-07-2024 Potassium [Moles/Vol] 3.8 mmol/L 3.5-5.1 [facility] Prothrombin Time w/INRon INR Coag (PPP) [Relative time] 1.9 {INR} Normal [facility] Comment on above: Performed By: #### L 501.2450, L100.0100, L500.3400, L300.4310, L501.5200, L500.2500, L503.6005, L300.3900 ####[facility] [address] [place], [place], [id number] PT Coag (PPP) [Time] 22.1 s High 11.7-14.9 [facility] Comment on above: Performed By: #### L 501.2450, L100.0100, L500.3400, L300.4310, L501.5200, L500.2500, L503.6005, L300.3900 ####[facility] [id number] [place], [place], [id number] Prothrombin timeOrdered By: Dhiraj Carlton on 07-07-2024 PT Coag (PPP) [Time] 22.1 s High 11.7-14.9 [facility] RBC Auto (Bld) [#/Vol]Ordere d By: Dhiraj Carlton on 07-07-2024 RBC (Bld) [#/Vol] 3.52 10*6/uL Low 4.6-6.2 [facility] Serum anion gap measurementO rdered By: Dhiraj Carlton on 07-07-2024 Anion gap [Moles/Vol] 8 mmol/L 5-15 [facility] Serum globulin measurementOr dered By: Dhiraj Carlton on 07-07-2024 Globulin (S) [Mass/Vol] 5.0 g/dL High 2.2-4.2 [facility] Serum or plasma alanine grace otransferase (ALT) measurementOrdered By: Dhiraj Carlton on 07-07-2024 ALT [Catalytic activity/Vol] 19 U/L 16-61 [facility] Serum or plasma albumin shweta urement (mass/volume)Ordered By: Dhiraj Carlton on 07-07-2024 Albumin [Mass/Vol] 2.7 g/dL Low 3.2-5.0 [facility] Serum or plasma alkaline gibson sphatase measurementOrdered By: Dhiraj Carlton on 07-07-2024 ALP [Catalytic activity/Vol] 133 U/L High 45-117 [facility] Serum or plasma calcium shweta urement (mass/volume)Ordered By: Dhiraj Carlton on 07-07-2024 Calcium [Mass/Vol] 8.9 mg/dL 8.5-10.1 [facility] Serum or plasma creatinine m easurement (mass/volume)Ordered By: Dhriaj Carlton on 07-07-2024 Creatinine [Mass/Vol] 1.02 mg/dL 0.70-1.30 [facility] Comment on above: The validity of the calculated GFR & GFRAA in patients over 70 years has not been determined. Clinical correlation is essential. Serum or plasma urea nitroge n measurement (mass/volume)Ordered By: Dhiraj Carlton on 07-07-2024 Urea nitrogen [Mass/Vol] 19 mg/dL High 7-18 [facility] Sodium levelOrdered By: Kobe Carlton on 07-07-2024 Sodium [Moles/Vol] 138 mmol/L 136-145 [facility] Total proteinOrdered By: Orlando Carlton on 07-07-2024 Protein [Mass/Vol] 7.7 g/dL 6.4-8.2 [facility] White blood cell (WBC) count Ordered By: Dhiraj Carlton on 07-07-2024 WBC (Bld) [#/Vol] 6.0 10*3/uL 4.4-11.0 [facility] aPTT Coag (PPP) [Time]Ordere d By: Dhiraj Carlton on 07-07-2024 aPTT Coag (Bld) [Time] 39.3 s High 24.1-36.2 [facility] .Auto Diffon 07-01-2024 Basophil, Absolute 0.0 10 3/mcL Normal 0.0-0.3 [facility] Comment on above: Performed By: #### A PTT #### [address] [address] Basophils/100 WBC (Bld) 0.3 % Normal 0.0-2.5 [facility] Comment on above: Performed By: #### A PTT #### [address] [address] Eosinophil, Absolute 0.1 10 3/mcL Normal 0.0-0.7 [facility] Comment on above: Performed By: #### A PTT #### [address] [address] Eosinophils/100 WBC (Bld) 1.5 % Normal 0.0-6.0 [facility] Comment on above: Performed By: #### A PTT #### [address] [address] Lymphocyte, Absolute 1.2 10 3/mcL Normal 0.9-4.3 [facility] Comment on above: Performed By: #### A PTT #### [address] [address] Lymphocytes/100 WBC (Bld) 12.5 % Low 20.0-40.0 [facility] Comment on above: Performed By: #### A PTT #### [address] [address] Monocyte, Absolute 0.9 10 3/mcL Normal 0.1-1.4 [facility] Comment on above: Performed By: #### A PTT #### [address] [address] Monocytes/100 WBC (Bld) 9.7 % Normal 2.0-13.0 [facility] Comment on above: Performed By: #### A PTT #### [address] [address] Neutrophils/100 WBC (Bld) 76.0 % High 50.0-75.0 [facility] Comment on above: Performed By: #### A PTT #### [address] [address] .GFRon 07-01-2024 GFR >60 [facility] Comment on above: Result [...] meters Performed By: #### A PTT #### [place] [address] GFR Non- >60 [facility] [...] meters Performed By: #### A PTT #### [address] [address] .Morphon 07-01-2024 Ovalocytes 1+ [facility] Comment on above: Performed By: #### G FR, BMP, MG #### [place] [id number] Platelet Clumps Moderate [facility] Comment on above: Performed By: #### G FR, BMP, MG #### [place] [phone] Platelet Estimate Normal [facility] Comment on above: Performed By: #### G FR, BMP, MG #### [place] [id number] Poik 1+ Normal [facility] Comment on above: Performed By: #### G FR, BMP, MG #### [address] [address] .NEUABSon 07-01-2024 Neutrophil, Absolute 7.0 10 3/mcL Normal 2.3-8.1 [facility] Comment on above: Performed By: #### A PTT #### [place] [id number] BMPon 07-01-2024 BUN/Creatinine Ratio 21.7 ratio Normal 10.0-22.0 [facility] Comment on above: Performed By: #### A PTT #### [place] [address] Calcium [Mass/Vol] 8.8 mg/dL Normal 8.7-10.4 [facility] Comment on above: Performed By: #### A PTT #### [place] [id number] Chloride [Moles/Vol] 103 mmol/L Normal 98-110 [facility] Comment on above: Performed By: #### A PTT #### [place] [phone] CO2 [Moles/Vol] 29 mmol/L Normal 22-32 [facility] Comment on above: Performed By: #### A PTT #### [place] [address] Creatinine [Mass/Vol] 0.83 mg/dL Normal 0.60-1.40 [facility] Comment on above: Result Comment: Test ing performed on [employer] analyzer using enzymatic creatinine methodology. Performed By: #### A PTT #### [place] [address] Electrolyte Balance 7.0 mEq/L Normal 4.0-15.0 [facility] Comment on above: Performed By: #### A PTT #### [place] [phone] Glucose [Mass/Vol] 187 mg/dL High 82-115 [facility] Comment on above: Performed By: #### A PTT #### [address] [address] Potassium [Moles/Vol] 4.0 mmol/L Normal 3.5-5.0 [facility] Comment on above: Performed By: #### A PTT #### [address] [address] Sodium [Moles/Vol] 139 mmol/L Normal 136-145 [facility] Comment on above: Performed By: #### A PTT #### [place] [phone] Urea nitrogen [Mass/Vol] 18.0 mg/dL Normal 8.0-22.0 [facility] Comment on above: Performed By: #### A PTT #### [place] [id number] CBCon 07-01-2024 Platelets (Bld) [#/Vol] 4 10*3/uL Normal 150-450 [facility] Comment on above: Result Comment: Plat elets appear adequate on smear; however, due to clumping an accurate count is not possible. Performed By: #### DAMON CLEARY, MG #### [place] [id number] Platelet mean volume (Bld) [Entitic vol] 11.3 fL High 6.4-10.5 [facility] Comment on above: Performed By: #### DAMON CLEARY, MG #### [place] [id number] Erythrocyte distribution width (RBC) [Ratio] 15.3 % Normal 11.5-15.5 [facility] Comment on above: Performed By: #### Lamberto BARKER BMP, MG #### [place] [phone] Hematocrit (Bld) [Volume fraction] 31.2 % Low 40.0-52.0 [facility] Comment on above: Performed By: #### DAMON CLEARY, MG #### [address] [address] Hgb 10.5 G/dL Low 13.0-17.5 [facility] Comment on above: Performed By: #### G FR, BMP, MG #### [place] [address] MCH (RBC) [Entitic mass] 31.8 pg Normal 27.0-33.0 [facility] Comment on above: Performed By: #### G FR, BMP, MG #### [place] [address] MCHC 33.6 G/dL Normal 32.0-36.0 [facility] Comment on above: Performed By: #### G FR, BMP, MG #### [place] [address] MCV (RBC) [Entitic vol] 94.6 fL Normal 81.0-100.0 [facility] Comment on above: Performed By: #### G FR, BMP, MG #### [place] [address] RBC 3.29 10 6/mcL Low 4.50-6.00 [facility] Comment on above: Performed By: #### G FR, BMP, MG #### [place] [address] WBC 9.2 10 3/mcL Normal 4.5-10.8 [facility] Comment on above: Performed By: #### G FR, BMP, MG #### [place] [address] LABORATORYOrdered By: Ann Grimaldo on 07-01-2024 Glucose [Mass/Vol] 278 mg/dL High 82 - 115 mg/dL [facility] Work Phone: LABORATORYOrdered By: Coral Kim on 07-01-2024 Glucose [Mass/Vol] 234 mg/dL High 82 - 115 mg/dL [facility] Work Phone: LABORATORYOrdered By: SYSTEM SYSTEM on 07-01-2024 Basophils (Bld) [#/Vol] 0.0 103/mcL Normal 0.0 - 0.3 10^3/mcL AH Workflow SS Basophils/100 WBC (Bld) 0.3 % Normal 0.0 - 2.5 % AH Workflow SS Calcium [Mass/Vol] 8.8 mg/dL Normal 8.7 - 10. 4 mg/dL ADM SS Chloride [Moles/Vol] 103 mmol/L Normal 98 - 11 0 mEq/L ADM SS CO2 [Moles/Vol] 29 mmol/L Normal 22 - 32 mEq/L ADM SS Creatinine [Mass/Vol] 0.83 mg/dL Normal 0.60 - 1.40 mg/dL ADM SS Comment on above: Interpretive Data: T esting performed on [employer] analyzer using enzymatic creatinine methodology. Electrolyte Balance [...] [Vol rate/Area] ml/min/1.73sqm Invalid Interpretation Code ADM SS Comment on above: Interpretive Data: GFR Population [...] AH ADM SS MCH (RBC) [Entitic mass] 31.8 [...] 07-01-2024 Magnesium [Mass/Vol] 1.8 mg/dL Normal 1.6-2.4 [facility] Comment on above: Performed By: #### A PTT #### [place] [address] XR CHEST 2 VIEWSon XR CHEST 2 [...] By: #### G FR, BMP, MG #### [place] [address] GFR >60 [facility] Comment on above: Result [...] 15 mL/min/1.73 square meters Performed By: #### Lamberto FR BMP, MG #### [address] [address] .Manual Diffon 06-30-2024 Bands 1.0 % Normal 0.0-5.0 [facility] Comment on above: Performed By: #### G FR, BMP, MG #### [place] [address] Basophil %, Manual 0.0 % Normal 0.0-2.5 [facility] Comment on above: Performed By: #### Lamberto FR, BMP, MG #### [place] [address] Basophil, Abs Manual 0.0 10 3/mcL Normal 0.0-0.3 [facility] Comment on above: Performed By: #### Lambetro FR, BMP, MG #### [place] [address] Eosinophil %, Manual 1.0 % Normal 0.0-6.0 [facility] Comment on above: Performed By: #### Lamberto FR, BMP, MG #### [place] [id number] Eosinophil, Abs Manual 0.1 10 3/mcL Normal 0.0-0.7 [facility] Comment on above: Performed By: #### G FR, BMP, MG #### [place] [address] Lymphocyte %, Manual 11.0 % Low 20.0-40.0 [facility] Comment on above: Performed By: #### G FR, BMP, MG #### [place] [address] Lymphocyte, Abs Manual 0.9 10 3/mcL Normal 0.9-4.3 [facility] Comment on above: Performed By: #### G FR, BMP, MG #### [place] [address] Metamyelocyte 1.0 % Normal [facility] Comment on above: Performed By: #### G FR, BMP, MG #### [place] [id number] Monocyte %, Manual 5.0 % Normal 2.0-13.0 [facility] Comment on above: Performed By: #### G FR, BMP, MG #### [place] [id number] Monocyte, Abs Manual 0.4 10 3/mcL Normal 0.1-1.4 [facility] Comment on above: Performed By: #### G FR, BMP, MG #### [place] [address] Neutrophil %, Manual 81.0 % High 50.0-75.0 [facility] Comment on above: Performed By: #### G FR, BMP, MG #### [place] [address] Neutrophil, Abs Manual 6.8 10 3/mcL Normal 2.3-8.1 [facility] Comment on above: Performed By: #### G FR, BMP, MG #### [place] [address] Nucleated RBC 1.0 /100 WBC Normal [facility] Comment on above: Performed By: #### G FR, BMP, MG #### [address] [address] .Morphon 06-30-2024 Anisocytosis Ql (Bld) 1+ Normal [facility] Comment on above: Performed By: #### G FR, BMP, MG #### [place] [address] Large Platelets Few [facility] Comment on above: Performed By: #### G FR, BMP, MG #### [place] [address] Platelet Clumps Few [facility] Comment on above: Performed By: #### G FR, BMP, MG #### [place] [address] Platelet Estimate Normal [facility] Comment on above: Result Comment: Manu al platelet estimate: 200,000-225,000 Performed By: #### G FR, BMP, MG #### [address] [address] APTTon 06-30-2024 aPTT Coag (Bld) [Time] 43.7 s High 25.0-35.0 [facility] Comment on above: Result Comment: For Heparin anticoagulation therapy, the recommended therapeutic range is: 54-77 seconds (APTT Correlation with Anti-Xa therapeutic range of 0.3-0.7 units/ml). PLEASE REFERENCE THE PHARMACY PROTOCOL FOR DOSING. Performed By: #### A PTT #### [address] [address] BMPon 06-30-2024 BUN/Creatinine Ratio 23.8 ratio High 10.0-22.0 [facility] Comment on above: Performed By: #### G FR, BMP, MG #### [address] [address] Calcium [Mass/Vol] 8.8 mg/dL Normal 8.7-10.4 [facility] Comment on above: Performed By: #### G FR, BMP, MG #### [address] [address] Chloride [Moles/Vol] 100 mmol/L Normal 98-110 [facility] Comment on above: Performed By: #### G FR, BMP, MG #### [address] [address] CO2 [Moles/Vol] 29 mmol/L Normal 22-32 [facility] Comment on above: Performed By: #### G FR, BMP, MG #### [address] [address] Creatinine [Mass/Vol] 0.84 mg/dL Normal 0.60-1.40 [facility] Comment on above: Result Comment: Test ing performed on [employer] analyzer using enzymatic creatinine methodology. Performed By: #### G FR, BMP, MG #### [address] [address] Electrolyte Balance 8.0 mEq/L Normal 4.0-15.0 [facility] Comment on above: Performed By: #### G FR, BMP, MG #### [facility] [address] [place] [address] Glucose [Mass/Vol] 243 mg/dL High 82-115 [facility] Comment on above: Performed By: #### G FR, BMP, MG #### [facility] [address] [place] [address] Potassium [Moles/Vol] 4.2 mmol/L Normal 3.5-5.0 [facility] Comment on above: Performed By: #### G FR, BMP, MG #### [facility] [address] [place] [address] Sodium [Moles/Vol] 137 mmol/L Normal 136-145 [facility] Comment on above: Performed By: #### G FR, BMP, MG #### [facility] [address] [place] [address] Urea nitrogen [Mass/Vol] 20.0 mg/dL Normal 8.0-22.0 [facility] Comment on above: Performed By: #### G FR, BMP, MG #### [facility] [address] [place] [address] CBCon 06-30-2024 Platelet See Comment Normal 150-450 [facility] Comment on above: Result Comment: [...] Please contact the hematology department at Ext [phone]. Manual platelet estimate: 200,000-225,000 [employer] More [...] Please contact the hematology department at Ext [phone]. [employer] More than 900,000 INCREASED 550,000 - 900,000 [employer] 450,000 - 550,000 NORMAL 150,000 - 450,000 SLT DEC 100,000 - 150,000 DECREASED 50,000 - 100,000 [employer] Less than 50,000 Performed By: #### G FR, BMP, MG #### [place] [address] Erythrocyte distribution width (RBC) [Ratio] 15.1 % Normal 11.5-15.5 [facility] Comment on above: Performed By: #### G FR, BMP, MG #### [place] [address] Hematocrit (Bld) [Volume fraction] 30.1 % Low 40.0-52.0 [facility] Comment on above: Performed By: #### G FR, BMP, MG #### [place] [address] Hgb 10.5 G/dL Low 13.0-17.5 [facility] Comment on above: Performed By: #### G FR, BMP, MG #### [place] [address] MCH (RBC) [Entitic mass] 32.4 pg Normal 27.0-33.0 [facility] Comment on above: Performed By: #### G FR, BMP, MG #### [place] [address] MCHC 34.8 G/dL Normal 32.0-36.0 [facility] Comment on above: Performed By: #### G FR, BMP, MG #### [place] [address] MCV (RBC) [Entitic vol] 93.1 fL Normal 81.0-100.0 [facility] Comment on above: Performed By: #### G FR, BMP, MG #### [place] [address] Platelet mean volume (Bld) [Entitic vol] 11.1 fL High 6.4-10.5 [facility] Comment on above: Performed By: #### G FR, BMP, MG #### [facility] [address] [place] [address] RBC 3.24 10 6/mcL Low 4.50-6.00 [facility] Comment on above: Performed By: #### G FR, BMP, MG #### [facility] [address] [place] [address] WBC 8.3 10 3/mcL Normal 4.5-10.8 [facility] Comment on above: Performed By: #### G FR, BMP, MG #### [facility] [address] [place] [address] LABORATORYOrdered By: Jackson Spaulding on 06-30-2024 Blood Glucose Testing Reason Routine (06/30/24 8:33 PM) [facility] Work Phone: Glucose [Mass/Vol] 106 mg/dL Normal 82 - 115 mg/dL [facility] Work Phone: Blood Glucose Testing Reason Routine (06/30/24 5:36 PM) [facility] Work Phone: Blood Glucose Testing Reason Routine (06/30/24 2:02 PM) [facility] Work Phone: LABORATORYOrdered By: SYSTEM SYSTEM [...] 4 mg/dL AH ADM SS Chloride [Moles/Vol] 100 mmol/L Normal 98 - 11 0 mEq/L ADM SS CO2 [Moles/Vol] 29 mmol/L Normal 22 - 32 mEq/L ADM SS Creatinine [Mass/Vol] 0.84 mg/dL Normal 0.60 - 1.40 mg/dL ADM Comment on above: Interpretive Data: T esting performed on [employer] analyzer using enzymatic creatinine methodology. Electrolyte Balance 8.0 mEq/L Normal 4.0 - 15 .0 mEq/L ADM SS Eosinophils (Bld) [#/Vol] 0.1 103/mcL Normal 0.0 - 0.7 10^3/mcL Workflow SS Eosinophils/100 WBC (Bld) 1.0 % Normal 0.0 - 6.0 % Workflow [...] (S/P/Bld) [Vol rate/Area] ml/min/1.73sqm Invalid Interpretation Code [facility] Comment on above: Interpretive Data: GFR [...] mg/dL High 82 - 115 mg/dL ADM SS Hematocrit (Bld) [Volume fraction] 30.1 % Low 40.0 - 52.0 % AH Workflow SS Hemoglobin (Bld) [Mass/Vol] 10.5 G/dL Low 13.0 - 17.5 G/dL AH Workflow SS Large Platelets Few *NA* (06/30/24 3:38 AM) Invalid Interpretation Code Workflow SS Lymphocytes (Bld) [#/Vol] 0.9 103/mcL Normal 0.9 - 4.3 10^3/mcL Workflow SS Lymphocytes/100 WBC (Bld) 11.0 % Low 20.0 - 40.0 % Workflow SS Magnesium [Mass/Vol] 1.9 mg/dL Normal 1.6 - 2 .4 mg/dL ADM SS MCH (RBC) [Entitic mass] 32.4 pg Normal 27.0 - 33.0 pg Workflow SS MCHC 34.8 G/dL Normal 32.0 [...] 3:38 AM) Invalid Interpretation Code Workflow SS Comment on above: Result Comment: Manu al platelet estimate: 200,000-225,000 Potassium [Moles/Vol] 4.2 mmol/L Normal 3.5 - 5.0 mEq/L ADM SS RBC (Bld) [#/Vol] 3.24 106/mcL Low 4.50 - 6.00 10^6/mcL Workflow SS Sodium [Moles/Vol] 137 mmol/L Normal 136 - 145 mEq/L ADM SS Urea nitrogen [Mass/Vol] 20.0 mg/dL Normal 8.0 - 22.0 mg/dL ADM SS Urea nitrogen/Creatinine [Mass ratio] 23.8 ratio High 10.0 - 22.0 ratio ADM SS WBC (Bld) [#/Vol] 8.3 103/mcL Normal 4.5 - 10.8 10^3/mcL Workflow SS MGon 06-30-2024 Magnesium [Mass/Vol] 1.9 mg/dL Normal 1.6-2.4 [facility] Comment on above: Performed By: #### G , DAMON, #### [facility] [address] [place], [place] [id number] No Panel Informationon 06-30 Legionella Urine Ag Presumptive negative for L. pneumophila serogroup 1 antigen in urine, suggesting no recent or current infection. Legionnaire's disease cannot be ruled out since other serogroups and species may also cause disease. [facility] Work Phone: XR CHEST 1 VIEWon [...] 06/30/2024 8:46:51 PM Ordering Provider: ELBA Ayoub [facility] XR CHEST 1 VIEW ORIGINAL [...] Karri Gross MD Electronically signed By Karri Gorss MD Dictated Date: 06/30/2024 11:25:19 AM Prelim Date: 06/30/2024 11:26:40 AM Sign Date: 06/30/2024 11:26:40 AM Ordering Provider: DHIRAJ Ayoub [facility] .Auto Diffon 06-29-2024 Basophil, Absolute 0.0 10 3/mcL Normal 0.0-0.3 [facility] Comment on above: Performed By: #### A PTT #### [address] [address] Basophils/100 WBC (Bld) 0.3 % Normal 0.0-2.5 [facility] Comment on above: Performed By: #### A PTT #### [address] [address] Eosinophil, Absolute 0.1 10 3/mcL Normal 0.0-0.7 [facility] Comment on above: Performed By: #### A PTT #### [address] [address] Eosinophils/100 WBC (Bld) 1.4 % Normal 0.0-6.0 [facility] Comment on above: Performed By: #### A PTT #### [address] [address] Lymphocyte, Absolute 1.1 10 3/mcL Normal 0.9-4.3 [facility] Comment on above: Performed By: #### A PTT #### [address] [address] Lymphocytes/100 WBC (Bld) 14.7 % Low 20.0-40.0 [facility] Comment on above: Performed By: #### A PTT #### [facility] [address] [place] [address] Monocyte, Absolute 0.9 10 3/mcL Normal 0.1-1.4 [facility] Comment on above: Performed By: #### A PTT #### [facility] [address] [place] [address] Monocytes/100 WBC (Bld) 12.0 % Normal 2.0-13.0 [facility] Comment on above: Performed By: #### A PTT #### [facility] [address] [place] [address] Neutrophils/100 WBC (Bld) 71.6 % Normal 50.0-75.0 [facility] Comment on above: Performed By: #### A PTT #### [facility] [address] [place] [address] .GFRon 06-29-2024 GFR Non- >60 [facility] [...] meters Performed By: #### A PTT #### [facility] [address] [place] [address] GFR >60 Normal [facility] Comment on above: Result Comment: [...] meters Performed By: #### A PTT #### [address] [address] .NEUABSon 06-29-2024 Neutrophil, Absolute 5.5 10 3/mcL Normal 2.3-8.1 [facility] Comment on above: Performed By: #### A PTT #### [address] [address] APTTon 06-29-2024 aPTT Coag (Bld) [Time] 30.5 s Normal 25.0-35.0 [facility] Comment on above: Result Comment: For Heparin anticoagulation therapy, the recommended therapeutic range is: 54-77 seconds (APTT Correlation with Anti-Xa therapeutic range of 0.3-0.7 units/ml). PLEASE REFERENCE THE PHARMACY PROTOCOL FOR DOSING. Performed By: #### A PTT #### [address] [address] aPTT Coag (Bld) [Time] 60.7 s High 25.0-35.0 [facility] Comment on above: Result Comment: For Heparin anticoagulation therapy, the recommended therapeutic range is: 54-77 seconds (APTT Correlation with Anti-Xa therapeutic range of 0.3-0.7 units/ml). PLEASE REFERENCE THE PHARMACY PROTOCOL FOR DOSING. Performed By: #### G FR, BMP, MG #### [address] [address] BMPon 06-29-2024 BUN/Creatinine Ratio 22.1 ratio High 10.0-22.0 [facility] Comment on above: Performed By: #### A PTT #### [address] [address] Calcium [Mass/Vol] 8.7 mg/dL Normal 8.7-10.4 [facility] Comment on above: Performed By: #### A PTT #### [address] [address] Chloride [Moles/Vol] 101 mmol/L Normal 98-110 [facility] Comment on above: Performed By: #### A PTT #### [address] [address] CO2 [Moles/Vol] 30 mmol/L Normal 22-32 [facility] Comment on above: Performed By: #### A PTT #### [address] [address] Creatinine [Mass/Vol] 0.77 mg/dL Normal 0.60-1.40 [facility] Comment on above: Result Comment: Test ing performed on [employer] analyzer using enzymatic creatinine methodology. Performed By: #### A PTT #### [address] [address] Electrolyte Balance 7.0 mEq/L Normal 4.0-15.0 [facility] Comment on above: Performed By: #### A PTT #### [place] [id number] Glucose [Mass/Vol] 235 mg/dL High 82-115 [facility] Comment on above: Performed By: #### A PTT #### [place] [id number] Potassium [Moles/Vol] 3.6 mmol/L Normal 3.5-5.0 [facility] Comment on above: Performed By: #### A PTT #### [address] [address] Sodium [Moles/Vol] 138 mmol/L Normal 136-145 [facility] Comment on above: Performed By: #### A PTT #### [address] [address] Urea nitrogen [Mass/Vol] 17.0 mg/dL Normal 8.0-22.0 [facility] Comment on above: Performed By: #### A PTT #### [address] [address] CBCon 06-29-2024 Erythrocyte distribution width (RBC) [Ratio] 14.9 % Normal 11.5-15.5 [facility] Comment on above: Performed By: #### C BC, BMP, GFR, ADIFF, MG, ANEU #### [place] [address] Hematocrit (Bld) [Volume fraction] 30.7 % Low 40.0-52.0 [facility] Comment on above: Performed By: #### C BC, BMP, GFR, ADIFF, MG, ANEU #### [place] [address] Hgb 10.5 G/dL Low 13.0-17.5 [facility] Comment on above: Performed By: #### C BC, BMP, GFR, ADIFF, MG, ANEU #### [place] [address] MCH (RBC) [Entitic mass] 31.9 pg Normal 27.0-33.0 [facility] Comment on above: Performed By: #### C BC, BMP, GFR, ADIFF, MG, ANEU #### [place] [address] MCHC 34.2 G/dL Normal 32.0-36.0 [facility] Comment on above: Performed By: #### C BC, BMP, GFR, ADIFF, MG, ANEU #### [place] [address] MCV (RBC) [Entitic vol] 93.3 fL Normal 81.0-100.0 [facility] Comment on above: Performed By: #### C BC, BMP, GFR, ADIFF, MG, ANEU #### [place] [address] Platelet 92 10 3/mcL Low 150-450 [facility] Comment on above: Performed By: #### C BC, BMP, GFR, ADIFF, MG, ANEU #### [place] [address] Platelet mean volume (Bld) [Entitic vol] 11.5 fL High 6.4-10.5 [facility] Comment on above: Performed By: #### C BC, BMP, GFR, ADIFF, MG, ANEU #### [address] [address] RBC 3.29 10 6/mcL Low 4.50-6.00 [facility] Comment on above: Performed By: #### C BC, BMP, GFR, ADIFF, MG, ANEU #### [facility] [address] [place] [address] WBC 7.7 10 3/mcL Normal 4.5-10.8 [facility] Comment on above: Performed By: #### C BC, BMP, GFR, ADIFF, MG, ANEU #### [facility] [address] [place] [address] Culture, Blood (WB)on 2024 CUB Blood cultures x2, f rom two different sites No growth in 5 days. Normal [facility] Comment on above: Performed By: #### M 200.1000, L503.6005 ####[facility] [address] [place], [address] LABORATORYOrdered By: SYSTEM SYSTEM on 06-29-2024 aPTT [...] 0.0 103/mcL Normal 0.0 - 0.3 10^3/mcL Workflow SS Basophils/100 WBC (Bld) 0.3 % Normal 0.0 - 2.5 % Workflow SS Calcium [Mass/Vol] 8.7 mg/dL Normal 8.7 - 10. 4 mg/dL ADM SS Chloride [Moles/Vol] 101 mmol/L Normal 98 - 11 0 mEq/L ADM SS CO2 [Moles/Vol] 30 mmol/L Normal 22 - 32 mEq/L ADM SS Creatinine [Mass/Vol] 0.77 mg/dL Normal 0.60 - 1.40 mg/dL ADM SS Comment on above: Interpretive Data: T esting performed on [employer] analyzer using enzymatic creatinine methodology. Electrolyte Balance [...] [Vol rate/Area] ml/min/1.73sqm Invalid Interpretation Code ADM SS Comment on above: Interpretive Data: GFR Population [...] [Vol rate/Area] ml/min/1.73sqm Invalid Interpretation Code ADM SS Comment on above: Interpretive Data: GFR Population [...] 235 mg/dL High 82 - 115 mg/dL ADM SS Hematocrit (Bld) [Volume fraction] 30.7 % Low [...] mg/dL ADM SS MCH (RBC) [Entitic mass] 31.9 pg Normal 27.0 - 33.0 pg AH Workflow SS MCHC 34.2 G/dL Normal 32.0 - 36.0 G/dL AH Workflow SS MCV (RBC) [Entitic vol] 93.3 [...] 11.5 fL High 6.4 - 10.5 fL AH Workflow SS Platelets (Bld) [#/Vol] 92 103/mcL Low 150 - 450 10^3/mcL AH Workflow SS Potassium [Moles/Vol] 3.6 mmol/L Normal 3.5 - 5.0 mEq/L ADM SS RBC (Bld) [#/Vol] 3.29 106/mcL Low 4.50 - 6.00 10^6/mcL AH Workflow SS Sodium [Moles/Vol] 138 mmol/L Normal 136 - 145 mEq/L AH ADM SS Urea nitrogen [Mass/Vol] 17.0 mg/dL Normal 8.0 - 22.0 mg/dL AH ADM SS Urea nitrogen/Creatinine [Mass ratio] 22.1 ratio High 10.0 - 22.0 ratio AH ADM SS WBC (Bld) [#/Vol] 7.7 103/mcL Normal 4.5 - 10.8 10^3/mcL Workflow SS MGon 06-29-2024 Magnesium [Mass/Vol] 1.8 mg/dL Normal 1.6-2.4 [facility] Comment on above: Performed By: #### A PTT #### [address] [address] .Auto Diffon 06-28-2024 Basophil, Absolute 0.0 10 3/mcL Normal 0.0-0.3 [facility] Comment on above: Performed By: #### G FR, BMP, MG #### [address] [address] Basophils/100 WBC (Bld) 0.3 % Normal 0.0-2.5 [facility] Comment on above: Performed By: #### G FR, BMP, MG #### [address] [address] Eosinophil, Absolute 0.0 10 3/mcL Normal 0.0-0.7 [facility] Comment on above: Performed By: #### G FR, BMP, MG #### [address] [address] Eosinophils/100 WBC (Bld) 0.4 % Normal 0.0-6.0 [facility] Comment on above: Performed By: #### G FR, BMP, MG #### [address] [address] Lymphocyte, Absolute 1.0 10 3/mcL Normal 0.9-4.3 [facility] Comment on above: Performed By: #### G FR, BMP, MG #### [address] [address] Lymphocytes/100 WBC (Bld) 13.6 % Low 20.0-40.0 [facility] Comment on above: Performed By: #### G FR, BMP, MG #### [facility] [address] [place] [address] Monocyte, Absolute 0.9 10 3/mcL Normal 0.1-1.4 [facility] Comment on above: Performed By: #### G FR, BMP, MG #### [address] [address] Monocytes/100 WBC (Bld) 13.2 % High 2.0-13.0 [facility] Comment on above: Performed By: #### G FR, BMP, MG #### [address] [address] Neutrophils/100 WBC (Bld) 72.5 % Normal 50.0-75.0 [facility] Comment on above: Performed By: #### G FR, BMP, MG #### [address] [address] .GFRon 06-28-2024 GFR >60 Normal [facility] Comment on above: Result Comment: [...] By: #### G FR, BMP, MG #### [address] [address] GFR Non- >60 Normal [facility] Comment on above: Result Comment: [...] By: #### G FR, BMP, MG #### [place] [address] .NEUABSon 06-28-2024 Neutrophil, Absolute 5.1 10 3/mcL Normal 2.3-8.1 [facility] Comment on above: Performed By: #### G FR, BMP, MG #### [place] [address] APTTon 06-28-2024 aPTT Coag (Bld) [Time] 60.4 s High 25.0-35.0 [facility] Comment on above: Result Comment: For Heparin anticoagulation therapy, the recommended therapeutic range is: 54-77 seconds (APTT Correlation with Anti-Xa therapeutic range of 0.3-0.7 units/ml). PLEASE REFERENCE THE PHARMACY PROTOCOL FOR DOSING. Performed By: #### G FR, BMP, MG #### [place] [address] aPTT Coag (Bld) [Time] 58.9 s High 25.0-35.0 [facility] Comment on above: Result Comment: For Heparin anticoagulation therapy, the recommended therapeutic range is: 54-77 seconds (APTT Correlation with Anti-Xa therapeutic range of 0.3-0.7 units/ml). PLEASE REFERENCE THE PHARMACY PROTOCOL FOR DOSING. Performed By: #### A PTT #### [place] [address] aPTT Coag (Bld) [Time] 39.8 s High 25.0-35.0 [facility] Comment on above: Result Comment: For Heparin anticoagulation therapy, the recommended therapeutic range is: 54-77 seconds (APTT Correlation with Anti-Xa therapeutic range of 0.3-0.7 units/ml). PLEASE REFERENCE THE PHARMACY PROTOCOL FOR DOSING. Performed By: #### A PTT #### [place] [phone] BMPon 06-28-2024 BUN/Creatinine Ratio 25.6 ratio High 10.0-22.0 [facility] Comment on above: Performed By: #### G FR BMP, MG #### [place] [phone] Calcium [Mass/Vol] 8.8 mg/dL Normal 8.7-10.4 [facility] Comment on above: Performed By: #### G FR BMP, MG #### [place] [phone] Chloride [Moles/Vol] 102 mmol/L Normal 98-110 [facility] Comment on above: Performed By: #### G FR BMP, MG #### [place] [phone] CO2 [Moles/Vol] 29 mmol/L Normal 22-32 [facility] Comment on above: Performed By: #### G FR BMP, MG #### [place] [id number] Creatinine [Mass/Vol] 0.82 mg/dL Normal 0.60-1.40 [facility] Comment on above: Result Comment: Test ing performed on [employer] analyzer using enzymatic creatinine methodology. Performed By: #### G FR BMP, MG #### [place] [phone] Electrolyte Balance 7.0 mEq/L Normal 4.0-15.0 [facility] Comment on above: Performed By: #### G FR BMP, MG #### [place] [id number] Glucose [Mass/Vol] 277 mg/dL High 82-115 [facility] Comment on above: Performed By: #### G FR BMP, MG #### [place] [id number] Potassium [Moles/Vol] 3.7 mmol/L Normal 3.5-5.0 [facility] Comment on above: Performed By: #### G FR, BMP, MG #### [place] [address] Sodium [Moles/Vol] 138 mmol/L Normal 136-145 [facility] Comment on above: Performed By: #### G FR, BMP, MG #### [place] [address] Urea nitrogen [Mass/Vol] 21.0 mg/dL Normal 8.0-22.0 [facility] Comment on above: Performed By: #### G FR, BMP, MG #### [place] [address] CBCon 06-28-2024 Erythrocyte distribution width (RBC) [Ratio] 14.9 % Normal 11.5-15.5 [facility] Comment on above: Performed By: #### G FR, BMP, MG #### [place] [address] Hematocrit (Bld) [Volume fraction] 31.8 % Low 40.0-52.0 [facility] Comment on above: Performed By: #### G FR, BMP, MG #### [place] [address] Hgb 11.0 G/dL Low 13.0-17.5 [facility] Comment on above: Performed By: #### G FR, BMP, MG #### [place] [address] MCH (RBC) [Entitic mass] 32.4 pg Normal 27.0-33.0 [facility] Comment on above: Performed By: #### G FR, BMP, MG #### [place] [address] MCHC 34.6 G/dL Normal 32.0-36.0 [facility] Comment on above: Performed By: #### G FR, BMP, MG #### [place] [address] MCV (RBC) [Entitic vol] 93.5 fL Normal 81.0-100.0 [facility] Comment on above: Performed By: #### G FR, BMP, MG #### [facility] [address] [place] [address] Platelet 82 10 3/mcL Low 150-450 [facility] Comment on above: Performed By: #### G FR, BMP, MG #### [facility] [address] [place] [address] Platelet mean volume (Bld) [Entitic vol] 10.9 fL High 6.4-10.5 [facility] Comment on above: Performed By: #### G FR, BMP, MG #### [facility] [address] [place] [address] RBC 3.40 10 6/mcL Low 4.50-6.00 [facility] Comment on above: Performed By: #### G FR, BMP, MG #### [address] [address] WBC 7.1 10 3/mcL Normal 4.5-10.8 [facility] Comment on above: Performed By: #### G FR, BMP, MG #### [address] [address] LABORATORYOrdered By: SYSTEM SYSTEM on 06-28-2024 aPTT [...] 10^3/mcL AH Workflow SS Monocytes/100 WBC (Bld) 13.2 % High 2.0 - 13.0 % AH Workflow SS Neutrophils (Bld) [#/Vol] 5.1 103/mcL Normal 2.3 - 8.1 10^3/mcL AH Workflow SS Neutrophils/100 WBC (Bld) 72.5 % Normal 50.0 - 75.0 % Workflow SS LABORATORYOrdered By: Keenan York on 06-28-2024 Blood Glucose Interventions Notify physician (06/28/24 7:43 AM) [facility] Work Phone: MGon 06-28-2024 Magnesium [Mass/Vol] 2.1 mg/dL Normal 1.6-2.4 [facility] Comment on above: Performed By: #### G FR, BMP, MG #### [address] [address] .Auto Diffon 06-27-2024 Basophil, Absolute 0.0 10 3/mcL Normal 0.0-0.3 [facility] Comment on above: Performed By: #### G FR, BMP, MG #### [address] [address] Basophils/100 WBC (Bld) 0.3 % Normal 0.0-2.5 [facility] Comment on above: Performed By: #### G FR, BMP, MG #### [address] [address] Eosinophil, Absolute 0.0 10 3/mcL Normal 0.0-0.7 [facility] Comment on above: Performed By: #### G FR, BMP, MG #### [address] [address] Eosinophils/100 WBC (Bld) 0.3 % Normal 0.0-6.0 [facility] Comment on above: Performed By: #### G FR, BMP, MG #### [facility] [address] [place] [address] Lymphocyte, Absolute 0.7 10 3/mcL Low 0.9-4.3 [facility] Comment on above: Performed By: #### Lamberto FR, BMP, MG #### [facility] [address] [place] [address] Lymphocytes/100 WBC (Bld) 6.5 % Low 20.0-40.0 [facility] Comment on above: Performed By: #### Lamberto FR, BMP, MG #### [facility] [address] [place] [address] Monocyte, Absolute 1.2 10 3/mcL Normal 0.1-1.4 [facility] Comment on above: Performed By: #### Lamberto FR, BMP, MG #### [facility] [address] [place] [address] Monocytes/100 WBC (Bld) 10.8 % Normal 2.0-13.0 [facility] Comment on above: Performed By: #### Lamberto FR, BMP, MG #### [address] [address] Neutrophils/100 WBC (Bld) 82.1 % High 50.0-75.0 [facility] Comment on above: Performed By: #### Lamberto FR, BMP, MG #### [facility] [address] [place] [address] .GFRon 06-27-2024 GFR >60 Normal [facility] Comment on above: Result Comment: [...] By: #### G FR, BMP, MG #### [address] [address] GFR Non- >60 [facility] [...] By: #### G FR, BMP, MG #### [address] [address] GFR >60 [facility] Comment on above: Result [...] By: #### G FR, BMP, MG #### [address] [address] GFR Non- >60 [facility] [...] By: #### G FR, BMP, MG #### [address] [address] .NEUABSon 06-27-2024 Neutrophil, Absolute 8.9 10 3/mcL High 2.3-8.1 [facility] Comment on above: Performed By: #### G FR BMP, MG #### [place] [address] 12 Lead EKGon 06-27-2024 12 Lead EKG Normal [facility] A1Con 06-27-2024 Glucose [Mass/Vol] 157 mg/dL Normal [facility] Comment on above: Result Comment: Sharron mated Average Glucose calculated by equation ((28.7xA1C)-46.7) Estimated average glucose (eAG) is a calculated value from Hemoglobin A1C and is veterans employment representative of the average blood glucose level in the last 2-3 month period. Normal range: less than 114 mg/dL Performed By: #### G FR BMP, MG #### [address] [address] HbA1c (Bld) [Mass fraction] 7.1 % High 4.0-6.0 [facility] Comment on above: Performed By: #### G FR, BMP, MG #### [address] [address] APTTon 06-27-2024 aPTT Coag (Bld) [Time] 35.3 s High 25.0-35.0 [facility] Comment on above: Result Comment: For Heparin anticoagulation therapy, the recommended therapeutic range is: 54-77 seconds (APTT Correlation with Anti-Xa therapeutic range of 0.3-0.7 units/ml). PLEASE REFERENCE THE PHARMACY PROTOCOL FOR DOSING. Performed By: #### G FR, BMP, MG #### [address] [address] aPTT Coag (Bld) [Time] 30.3 s Normal 25.0-35.0 [facility] Comment on above: Result Comment: For Heparin anticoagulation therapy, the recommended therapeutic range is: 54-77 seconds (APTT Correlation with Anti-Xa therapeutic range of 0.3-0.7 units/ml). PLEASE REFERENCE THE PHARMACY PROTOCOL FOR DOSING. Performed By: #### A PTT #### [address] [address] Absolute lymphocyte countOrd ered By: Jessi Kaur on 06-27-2024 Lymphocytes Auto (Unsp spec) [#/Vol] 1.68 10*3/uL 0.83-4.51 [facility] Absolute neutrophil countOrd ered By: Jessi Kaur on 06-27-2024 Neutrophils (Bld) [#/Vol] 4.3 10*3/uL 2.0-7.7 [facility] Albumin to globulin ratioOrd ered By: Jessi Kaur on 06-27-2024 Albumin/Globulin [Mass ratio] 0.7 {ratio} Low 0.9-2.4 [facility] Arterial patency Wrist arter y --pre arterial punctureOrdered By: Jessi Kaur on 06-27-2024 Edgar Test Positive [facility] Assessment of wrist artery p atency prior to arterial punctureOrdered By: Jessi Kaur on 06-27-2024 Arterial patency Wrist artery --pre arterial puncture Positive [facility] Automated lymphocyte count a s percentage of total leukocytesOrdered By: Jessi Kaur on 06-27-2024 Lymphocytes/100 WBC Auto (Unsp spec) 24.4 % 19-41 [facility] BMPon 06-27-2024 BUN/Creatinine Ratio 27.9 ratio High 10.0-22.0 [facility] Comment on above: Performed By: #### G FR, BMP, MG #### [address] [address] Calcium [Mass/Vol] 9.1 mg/dL Normal 8.7-10.4 [facility] Comment on above: Performed By: #### G FR, BMP, MG #### [address] [address] Chloride [Moles/Vol] 101 mmol/L Normal 98-110 [facility] Comment on above: Performed By: #### DAMON CLEARY MG #### [address] [address] CO2 [Moles/Vol] 26 mmol/L Normal 22-32 [facility] Comment on above: Performed By: #### DAMON CLEARY, MG #### [address] [address] Creatinine [Mass/Vol] 0.86 mg/dL Normal 0.60-1.40 [facility] Comment on above: Result Comment: Test ing performed on [employer] analyzer using enzymatic creatinine methodology. Performed By: #### DAMON CLEARY MG #### [address] [address] Electrolyte Balance 9.0 mEq/L Normal 4.0-15.0 [facility] Comment on above: Performed By: #### DAMON CLEARY, MG #### [address] [address] Glucose [Mass/Vol] 302 mg/dL High 82-115 [facility] Comment on above: Performed By: #### DAMON CLEARY, MG #### [address] [address] Potassium [Moles/Vol] 3.8 mmol/L Normal 3.5-5.0 [facility] Comment on above: Performed By: #### DAMON CLEARY, MG #### [address] [address] Sodium [Moles/Vol] 136 mmol/L Normal 136-145 [facility] Comment on above: Performed By: #### DAMON CLEARY, MG #### [address] [address] Urea nitrogen [Mass/Vol] 24.0 mg/dL High 8.0-22.0 [facility] Comment on above: Performed By: #### Lamberto BARKER BMP, MG #### [address] [address] Base excess Calc (BldV) [Mol es/Vol]Ordered By: Jessi Kaur on 06-27-2024 Blood Gas Base Excess -2 mmol/L -2-2 [facility] Basophil percentageOrdered B y: Jessi Kaur on 06-27-2024 Basophils/100 WBC (Bld) 0.6 % 0-1 [facility] Bilirubin, totalOrdered By: Jessi Kaur on 06-27-2024 Bilirubin [Mass/Vol] 0.90 mg/dL 0.20-1.00 [facility] Comment on above: For patients on eltr ombopag therapy, use of Dimension [place] TBIL is not recommended. [facility] ED[facility] Positive Normal [facility] Comment on above: Performed By: #### L 9000.0800 ####[facility] [address] [place], [address] Base excess Calc (Bld) [Moles/Vol] -2 mmol/L Normal -2 to +2 [facility] Comment on above: Performed By: #### L 9000.0800 ####[facility] [address] [place], [address] Blood Gas Type ART Normal [facility] Comment on above: Performed By: #### L 9000.0800 ####[facility] [address] [place], [address] CO2 [Moles/Vol] 24 mmol/L Normal [facility] Comment on above: Performed By: #### L 9000.0800 ####[facility] [address] [place], [address] FI02 2.0 Normal [facility] Comment on above: Performed By: #### L 9000.0800 ####[facility] [address] [place], [address] HCO3 (Bld) [Moles/Vol] 23.0 mmol/L Normal 22-26 [facility] Comment on above: Performed By: #### L 9000.0800 ####[facility] [address] [place], [address] Mode Not entered Normal [facility] Comment on above: Performed By: #### L 9000.0800 ####[facility] [address] [place], [address] O2 Delivery Dev Cannula Normal [facility] Comment on above: Performed By: #### L 9000.0800 ####[facility] [address] [place], [address] pCO2 38.3 mmHg Normal 35-45 [facility] Comment on above: Performed By: #### L 9000.0800 ####[facility] [address] [place], [address] pH (Bld) 7.39 [pH] Normal 7.35-7.45 [facility] Comment on above: Performed By: #### L 9000.0800 ####[facility] [address] [place], [address] PO2 50 mmHG Low 75-100 [facility] Comment on above: Performed By: #### L 9000.0800 ####[facility] [address] [place], [address] SITE L Radial Normal [facility] Comment on above: Performed By: #### L 9000.0800 ####[facility] [address] [place], [address] SO2 84 Low 95-99 [facility] Comment on above: Performed By: #### L 9000.0800 ####[facility] [address] [place], [address] Blood base excess determinat ionOrdered By: Jessi Kaur on 06-27-2024 Base excess Calc (BldV) [Moles/Vol] -2 mmol/L -2-2 [facility] Blood bicarbonate measuremen tOrdered By: Jessi Kaur on 06-27-2024 Blood Gas Bicarbonate Actual 23.0 mmol/L [facility] HCO3 (Bld) [Moles/Vol] 23.0 mmol/L [facility] Blood manual differential co mment interpretation (narrative result)Ordered By: Jessi Kaur on 06-27-2024 Manual differential comment Royer (Bld) [Interp] SCANNED [facility] Blood urea nitrogen (BUN)/cr eatinine ratioOrdered By: Jessi Kaur on 06-27-2024 Urea nitrogen/Creatinine [Mass ratio] 24.1 mg/mg High - [facility] CBCon 06-27-2024 Erythrocyte distribution width (RBC) [Ratio] 15.0 % Normal 11.5-15.5 [facility] Comment on above: Performed By: #### G FR, BMP, MG #### [place] [address] Hematocrit (Bld) [Volume fraction] 35.3 % Low 40.0-52.0 [facility] Comment on above: Performed By: #### G FR, BMP, MG #### [place] [address] Hgb 12.0 G/dL Low 13.0-17.5 [facility] Comment on above: Performed By: #### G FR, BMP, MG #### [place] [address] MCH (RBC) [Entitic mass] 32.1 pg Normal 27.0-33.0 [facility] Comment on above: Performed By: #### G FR, BMP, MG #### [place] [address] MCHC 34.2 G/dL Normal 32.0-36.0 [facility] Comment on above: Performed By: #### G FR, BMP, MG #### [place] [address] MCV (RBC) [Entitic vol] 94.1 fL Normal 81.0-100.0 [facility] Comment on above: Performed By: #### G FR, BMP, MG #### [facility] [address] [place] [address] Platelet 119 10 3/mcL Low 150-450 [facility] Comment on above: Performed By: #### G FR, BMP, MG #### [facility] [address] [place] [address] Platelet mean volume (Bld) [Entitic vol] 10.8 fL High 6.4-10.5 [facility] Comment on above: Performed By: #### G FR, BMP, MG #### [facility] [address] [place] [address] RBC 3.75 10 6/mcL Low 4.50-6.00 [facility] Comment on above: Performed By: #### G FR, BMP, MG #### [facility] [address] [place] [address] WBC 10.8 10 3/mcL Normal 4.5-10.8 [facility] Comment on above: Performed By: #### G FR, BMP, MG #### [facility] [address] [place] [id number] CBC W/Diff, Automatedon 06-04 PLT EST ADEQUATE Normal ADEQ [facility] Comment on above: Performed By: #### L 100.0100, L501.5200, L500.4050, L501.2300 ####[facility] [address] [place] [id number] PLT MORPH CLUMPED Normal [facility] Comment on above: Performed By: #### L 100.0100, L501.5200, L500.4050, L501.2300 ####[facility] [address] [facility] [id number] RED CELL MORPH NORM C+C Normal NORM C C [facility] Comment on above: Performed By: #### L 100.0100, L501.5200, L500.4050, L501.2300 ####[facility] [address] [place] [id number] SMEAR COMMENT SCANNED Normal [facility] Comment on above: Performed By: #### L 100.0100, L501.5200, L500.4050, L501.2300 ####[facility] [address] [place], [address] PLT Normal 150-450 [facility] Comment on above: Result Comment: Marcelle fritz note: For this sample, a platelet estimate isprovided rather than a platelet count due to plateletclumping. Other parameters associated with this sample arenot affected by platelet clumping. If a more accurateplatelet count is required, a redraw of the patient will benecessary. Performed By: #### L 100.0100, L501.5200, L500.4050, L501.2300 ####[facility] [address] [place], [address] CMPon 06-27-2024 Albumin Level 3.0 G/dL Low 3.2-4.8 [facility] Comment on above: Performed By: #### G FR, BMP, MG #### [facility] [address] [place] [address] Albumin/Globulin [Mass ratio] 0.8 {ratio} Low 0.9-1.6 [facility] Comment on above: Performed By: #### G FR, BMP, MG #### [facility] [address] [place] [address] ALP [Catalytic activity/Vol] 98 U/L Normal 38-126 [facility] Comment on above: Performed By: #### G FR, BMP, MG #### [facility] [address] [place] [address] ALT [Catalytic activity/Vol] 30 U/L Normal 12-55 [facility] Comment on above: Performed By: #### G FR, BMP, MG #### [facility] [address] [place] [address] AST [Catalytic activity/Vol] 29 U/L Normal 8-34 [facility] Comment on above: Performed By: #### G FR, BMP, MG #### [address] [address] Bili Total 1.00 mg/dL Normal 0.20-1.20 [facility] Comment on above: Result Comment: Use of this assay is not recommended for patients undergoing treatment with eltrombopag due to the potential for falsely elevated results. Performed By: #### G FR, BMP, MG #### [place] [id number] BUN/Creatinine Ratio 27.8 ratio High 10.0-22.0 [facility] Comment on above: Performed By: #### G FR, BMP, MG #### [address] [address] Calcium [Mass/Vol] 9.0 mg/dL Normal 8.7-10.4 [facility] Comment on above: Performed By: #### G FR, BMP, MG #### [address] [address] Chloride [Moles/Vol] 104 mmol/L Normal 98-110 [facility] Comment on above: Performed By: #### G FR, BMP, MG #### [address] [address] CO2 [Moles/Vol] 24 mmol/L Normal 22-32 [facility] Comment on above: Performed By: #### G FR, BMP, MG #### [address] [address] Creatinine [Mass/Vol] 0.79 mg/dL Normal 0.60-1.40 [facility] Comment on above: Result Comment: Test ing performed on [employer] analyzer using enzymatic creatinine methodology. Performed By: #### G FR, BMP, MG #### [place] [id number] Electrolyte Balance 10.0 mEq/L Normal 4.0-15.0 [facility] Comment on above: Performed By: #### G FR, BMP, MG #### [address] [address] Globulin 3.9 G/dL High 1.5-3.8 [facility] Comment on above: Performed By: #### G FR, BMP, MG #### [facility] [address] [place] [address] Glucose [Mass/Vol] 282 mg/dL High 82-115 [facility] Comment on above: Performed By: #### G FR, BMP, MG #### [facility] [address] [place] [address] Potassium [Moles/Vol] 3.8 mmol/L Normal 3.5-5.0 [facility] Comment on above: Performed By: #### G FR, BMP, MG #### [facility] [address] [place] [address] Sodium [Moles/Vol] 138 mmol/L Normal 136-145 [facility] Comment on above: Performed By: #### G FR, BMP, MG #### [address] [address] Total Protein 6.9 G/dL Normal 5.7-8.2 [facility] Comment on above: Performed By: #### G FR, BMP, MG #### [facility] [address] [place] [address] Urea nitrogen [Mass/Vol] 22.0 mg/dL Normal 8.0-22.0 [facility] Comment on above: Performed By: #### G FR, BMP, MG #### [facility] [address] [place] [address] Carbon dioxide measurementOr dered By: Jessi Kaur on 06-27-2024 CO2 [Moles/Vol] 25.0 mmol/L 21.0-32.0 [facility] Chest 1 View (Portable)on Chest 1 View (Portable) Normal [facility] Chloride measurementOrdered By: Jessi Kaur on 06-27-2024 Chloride [Moles/Vol] 106 mmol/L 98-107 [facility] Comprehensive Metabolic Prof ilon 06-27-2024 Albumin [Mass/Vol] 2.8 g/dL Low 3.2-5.0 [facility] Comment on above: Performed By: #### L 100.0100, L501.5200, L500.4050, L501.2300 ####[facility] [address] [place], [address] Albumin/Globulin [Mass ratio] 0.7 {ratio} Low 0.9-2.4 [facility] Comment on above: Performed By: #### L 100.0100, L501.5200, L500.4050, L501.2300 ####[facility] [address] [place], [address] ALK P 91 U/L Normal 45-117 [facility] Comment on above: Performed By: #### L 100.0100, L501.5200, L500.4050, L501.2300 ####[facility] [address] [place], [address] ALT [Catalytic activity/Vol] 33 U/L Normal 16-61 [facility] Comment on above: Performed By: #### L 100.0100, L501.5200, L500.4050, L501.2300 ####[facility] [address] [place], [address] AST [Catalytic activity/Vol] 27 U/L Normal 15-37 [facility] Comment on above: Performed By: #### L 100.0100, L501.5200, L500.4050, L501.2300 ####[facility] [address] [place], [address] Bilirubin [Mass/Vol] 0.90 mg/dL Normal 0.20-1.00 [facility] Comment on above: Result Comment: For patients on eltrombopag therapy, use of Dimension Oxford TBIL is not recommended. Performed By: #### L 100.0100, L501.5200, L500.4050, L501.2300 ####[facility] [address] [place], [address] BUN/CRE 24.1 RATIO High 10-20 [facility] Comment on above: Performed By: #### L 100.0100, L501.5200, L500.4050, L501.2300 ####[facility] [address] [place], [address] CA,Total 8.8 mg/dL Normal 8.5-10.1 [facility] Comment on above: Performed By: #### L 100.0100, L501.5200, L500.4050, L501.2300 ####[facility] [address] [place], [address] Chloride [Moles/Vol] 106 mmol/L Normal 98-107 [facility] Comment on above: Performed By: #### L 100.0100, L501.5200, L500.4050, L501.2300 ####[facility] [address] [place], [address] CO2 [Moles/Vol] 25.0 mmol/L Normal 21.0-32.0 [facility] Comment on above: Performed By: #### L 100.0100, L501.5200, L500.4050, L501.2300 ####[facility] [address] [place], [address] Creatinine [Mass/Vol] 1.00 mg/dL Normal 0.70-1.30 [facility] Comment on above: Result Comment: The validity of the calculated GFR GFRAA in patients over70 years has not been determined. Clinical correlation isessential. Performed By: #### L 100.0100, L501.5200, L500.4050, L501.2300 ####[facility] [address] [place], [address] ECRCL 83.68 ml/min Normal [facility] Comment on above: Performed By: #### L 100.0100, L501.5200, L500.4050, L501.2300 ####[facility] [address] [place], [address] EST GFR - AA 94 mL/min Normal >60 [facility] Comment on above: Result Comment: Afri can [place] GFR Calc Performed By: #### L 100.0100, L501.5200, L500.4050, L501.2300 ####[facility] [address] [place], [address] GAP 7 Normal 5-15 [facility] Comment on above: Performed By: #### L 100.0100, L501.5200, L500.4050, L501.2300 ####[facility] [address] [place], [address] GFR/1.73 sq M.predicted among non-blacks MDRD (S/P/Bld) [Vol rate/Area] 77 mL/min/{1.73_m2} Normal >60 [facility] Comment on above: Result Comment: Non- GFR Calc Performed By: #### L 100.0100, L501.5200, L500.4050, L501.2300 ####[facility] [address] [place], [address] Globulin (S) [Mass/Vol] 4.1 g/dL Normal 2.2-4.2 [facility] Comment on above: Performed By: #### L 100.0100, L501.5200, L500.4050, L501.2300 ####[facility] [address] [place], [address] Glucose [Mass/Vol] 244 mg/dL High 74-106 [facility] Comment on above: Result Comment: Gluc ose result greater than or equal to 200 mg/dLsuggests DIABETES MELLITUS per A.D.A. criteria. Performed By: #### L 100.0100, L501.5200, L500.4050, L501.2300 ####[facility] [address] [place], [address] Potassium [Moles/Vol] 3.3 mmol/L Low 3.5-5.1 [facility] Comment on above: Performed By: #### L 100.0100, L501.5200, L500.4050, L501.2300 ####[facility] [address] [place], [address] Sodium [Moles/Vol] 139 mmol/L Normal 136-145 [facility] Comment on above: Performed By: #### L 100.0100, L501.5200, L500.4050, L501.2300 ####[facility] [address] [place], [address] T PROT 6.9 g/dL Normal 6.4-8.2 [facility] Comment on above: Performed By: #### L 100.0100, L501.5200, L500.4050, L501.2300 ####[facility] [address] [place], [address] Urea nitrogen [Mass/Vol] 24 mg/dL High 7-18 [facility] Comment on above: Performed By: #### L 100.0100, L501.5200, L500.4050, L501.2300 ####[facility] [address] [place], [address] Determination of fraction of inspired oxygenOrdered By: Jessi Kaur on 06-27-2024 Blood Gas Oxygen Percent 2.0 [facility] Echo Limited w/Contraston Echo Limited w/Contrast Normal [facility] Eosinophil percentageOrdered By: Jessi Kaur on 06-27-2024 Eosinophils/100 WBC (Bld) 1.9 % 0-5 [facility] Erythrocyte distribution wid th (RBC) [Ratio]Ordered By: Jessi Kaur on 06-27-2024 Erythrocyte distribution width (RBC) [Entitic vol] 49.0 fL High 35.1-43.9 [facility] Erythrocyte distribution wid th ratioOrdered By: Jessi Kaur on 06-27-2024 Erythrocyte distribution width (RBC) [Ratio] 14.3 % 11.6-14.6 [facility] Erythrocyte distribution wid th standard deviationOrdered By: Jessi Kaur on 06-27-2024 Erythrocyte distribution width (RBC) [Ratio] 49.0 fl High 35.1-43.9 [facility] Erythrocyte morphology asses smentOrdered By: Jessi Kaur on 06-27-2024 RBC morphology finding Nom (Bld) NORM C+C NORMAL NORM C&C [facility] Estimated glomerular filtrat ion rate (GFR) AmericanOrdered By: Jessi Kaur on 06-27-2024 Estimated GFR (MDRD) Amer 94 mL/min >60 [facility] Comment on above: GFR Calc Estimation of creatinine dennys aranceOrdered By: Jessi Kaur on 06-27-2024 Estimated Creatinine Clearance Calc 83.68 ml/min [facility] Glomerular filtration rate ( GFR) estimationOrdered By: Jessi Kaur on 06-27-2024 Estimated GFR (MDRD) Non-Af Amer 77 mL/min >60 [facility] Comment on above: Non- GFR Calc GFR/1.73 sq M.predicted among non-blacks MDRD (S/P/Bld) [Vol rate/Area] 77 mL/min/{1.73_m2} >60 [facility] Glucose measurementOrdered B y: Jessi Kaur on 06-27-2024 Glucose [Mass/Vol] 244 mg/dL High 74-106 [facility] Comment on above: Glucose result great er than or equal to 200 mg/dLsuggests DIABETES MELLITUS per A.D.A. criteria. Hematocrit Auto (Bld) [Volum e fraction]Ordered By: Jessi Kaur on 06-27-2024 Hematocrit (Bld) [Volume fraction] 34.5 % Low 40-54 [facility] Hemoglobin measurementOrdere d By: Jessi Kaur on 06-27-2024 Hemoglobin (Bld) [Mass/Vol] 11.7 g/dL Low 13.0-16.5 [facility] Immature granulocytes/100 WB C Auto (Bld)Ordered By: Jessi Kaur on 06-27-2024 Immature granulocytes/100 WBC (Bld) 2.200 % High 0.0-0.9 [facility] Comment on above: IG% - Immature Granu locytes (promyelocytes, myelocytes and metamyelocytes) > 1% indicates that a LEFT SHIFT is Present. International normalized rat io (INR) calculationOrdered By: Jessi Kaur on 06-27-2024 INR Coag (Bld) [Relative time] 1.3 {INR} [facility] LABORATORYOrdered By: SYSTEM SYSTEM on 06-27-2024 Lactate [Moles/Vol] 2.7 mmol/L High 0.5 - 2. 2 mmol/L ADM SS Lactate [Moles/Vol] 2.7 mmol/L High 0.5 - 2. 2 mmol/L ADM SS Albumin BCP dye [Mass/Vol] 3.0 G/dL Low 3.2 - 4.8 G/dL ADM SS Albumin/Globulin [Mass ratio] 0.8 {ratio} Low 0.9 - 1.6 ratio AH ADM SS ALP [Catalytic activity/Vol] 98 U/L Normal 38 - 126 U/L ADM SS ALT No additional P-5'-P [Catalytic activity/Vol] 30 U/L Normal 12 - 55 U/L AH ADM SS AST [Catalytic activity/Vol] 29 U/L [...] Glucose [Mass/Vol] 157 mg/dL Invalid Interpretation Code AH Auto Chem SS Comment on above: Interpretive Data: E stimated average glucose (eAG) is a calculated value from Hemoglobin A1C and is veterans employment representative of the average blood glucose level [...] Normal 9.0 - 1 4.4 seconds [facility] Comment on above: Interpretive Data: E ffective 12/16/07, Protime results may be affected by some antibiotics (i.e. Ciprofloxacin, Azithromycin, Bactrim) which may potentiate the action of oral anticoagulants, with further increases in Protime/INR. PT International Ratio 1.2 ratio Invalid Interpretation Code [facility] Comment on above: Interpretive Data: Fallon lopez [employer] [employer] (CHEST, 1992, 102:312S-25S) recommended therapeutic range for oral anticoagulant therapy is: LOW RISK: Prophylaxis of venous thrombosis INR: 2.0-3.0 Treatment of pulmonary embolism 2.0-3.0 Prevention of systemic embolism 2.0-3.0 HIGH RISK: Mechanical prosthetic valves 2.5-3.5 TSH Qn 2.003 mIU/mL Normal 0.550 - 4.780 mIU/mL ADM SS LABORATORYOrdered By: Charlye Lewis on 06-27-2024 Blood Glucose Interventions Notify physician (06/27/24 4:25 PM) [facility] Work Phone: LABORATORYOrdered By: Marina browne on 06-27-2024 Cholesterol [Mass/Vol] 114 mg/dL Normal 50 - 199 mg/dL ADM Comment on above: Interpretive Data: C holesterol Reference Interval: Less than 200 Desirable 200-239 Borderline high risk 240 and above High risk Cholesterol in HDL [Mass/Vol] 43 mg/dL Normal 40 - 59 mg/dL ADM SS Cholesterol in LDL [Mass/Vol] 56 mg/dL Normal 0 - 129 mg/dL ADM SS Triglyceride [Mass/Vol] 76 mg/dL Normal 3 - 149 mg/dL ADM SS LACon 06-27-2024 Lactic Acid Lvl 2.7 mmol/L High 0.5-2.2 [facility] Comment on above: Performed By: #### G FR, BMP, MG #### [address] [address] Lactic Acid Lvl 2.7 mmol/L High 0.5-2.2 [facility] Comment on above: Order Comment: Order ed secondary to Lactic Acid result greater than or equal to 2.0 Performed By: #### A PTT #### [place] [address] Lactic Acid Lvl 2.7 mmol/L High 0.5-2.2 [facility] Comment on above: Performed By: #### G FR, BMP, MG #### [address] [address] LIPIDon 06-27-2024 Cholesterol [Mass/Vol] 114 mg/dL Normal 50-199 [facility] Comment on above: Result Comment: Chol esterol Reference Interval: Less than 200 Desirable 200-239 Borderline high risk 240 and above High risk Performed By: #### G FR, BMP, MG #### [address] [address] Cholesterol in HDL [Mass/Vol] 43 mg/dL Normal 40-59 [facility] Comment on above: Performed By: #### G FR, BMP, MG #### [address] [address] Cholesterol in LDL [Mass/Vol] 56 mg/dL Normal 0-129 [facility] Comment on above: Performed By: #### G FR, BMP, MG #### [place] [address] Triglyceride [Mass/Vol] 76 mg/dL Normal 3-149 [facility] Comment on above: Performed By: #### G FR, BMP, MG #### [address] [address] Laboratory - Chemistry and C hemistry - challengeOrdered By: Jessi Kaur on 06-27-2024 AST [Catalytic activity/Vol] 27 U/L 15-37 [facility] Lymphocytes Auto (Unsp spec) [#/Vol]Ordered By: Jessi Kaur on 06-27-2024 Lymphocytes (Bld) [#/Vol] 1.68 10*3/uL 0.83-4.51 [facility] Lymphocytes/100 WBC Auto (Un sp spec)Ordered By: Jessi Kaur on 06-27-2024 Lymphocytes/100 WBC (Bld) 24.4 % 19-41 [facility] MCV (mean corpuscular volume ) determinationOrdered By: Jessi Kaur on 06-27-2024 MCV (RBC) [Entitic vol] 94.0 fL 80-94 [facility] MGon 06-27-2024 Magnesium [Mass/Vol] 2.3 mg/dL Normal 1.6-2.4 [facility] Comment on above: Performed By: #### G FR, BMP, MG #### [address] [address] Magnesium [Mass/Vol] 1.7 mg/dL Normal 1.6-2.4 [facility] Comment on above: Performed By: #### G FR, BMP, MG #### [address] [address] Magnesiumon 06-27-2024 Magnesium [Mass/Vol] 1.6 mg/dL Normal 1.6-2.6 [facility] Comment on above: Performed By: #### L 100.0100, L501.5200, L500.4050, L501.2300 ####[facility] [address] [place], [place], [address] Magnesium measurementOrdered By: Jessi Kaur on 06-27-2024 Magnesium [Mass/Vol] 1.6 mg/dL 1.6-2.6 [facility] Manual differential comment Royer (Bld) [Interp]Ordered By: Jessi Kaur on 06-27-2024 Differential Comment SCANNED [facility] Mean corpuscular hemoglobin (MCH) determinationOrdered By: Jessi Kaur on 06-27-2024 MCH (RBC) [Entitic mass] 31.9 pg 27.0-32.0 [facility] Mean corpuscular hemoglobin concentration (MCHC) determinationOrdered By: Jessi Kaur on 06-27-2024 MCHC (RBC) [Mass/Vol] 33.9 g/dL 32-36 [facility] Measurement, pHOrdered By: Camryn Kaur on 06-27-2024 pH (Unsp spec) 7.39 [pH] 7.35-7.45 [facility] Monocyte percentageOrdered B y: Jessi Kaur on 06-27-2024 Monocytes/100 WBC (Bld) 9.0 % 0-10 [facility] Neutrophil percentageOrdered By: Jessi Kaur on 06-27-2024 Neutrophils/100 WBC (Bld) 61.9 % 47-70 [facility] No Panel InformationOrdered By: Jessi Kaur on 06-27-2024 27 U/L 15-37 [facility] Blood Gas Sample Site L Radial [facility] Blood Gas Specimen Type ART [facility] Blood Gas Vent Mode Not entered [facility] Oxygen Delivery Device Cannula [facility] ART [facility] L Radial [facility] Not entered [facility] Cannula [facility] Nucleated red blood cell per centageOrdered By: Jessi Kaur on 06-27-2024 Nucleated RBC/100 WBC (Bld) [Ratio] 0.3 % 0-5 [facility] Oxygen saturation measuremen tOrdered By: Jessi Kaur on 06-27-2024 Blood Gas Oxygen Saturation 84 % Low 95-99 [facility] PBNPon 06-27-2024 Natriuretic peptide B (Bld) [Mass/Vol] 1187 pg/mL Normal 0-1800 [facility] Comment on above: Performed By: #### G FR, BMP, MG #### [place] [address] PROon 06-27-2024 INR Coag (PPP) [Relative time] 1.2 {INR} Normal [facility] Comment on above: Result Comment: [employer] [place] [employer] (CHEST, 1992, 102:312S-25S) recommended therapeutic range for oral anticoagulant therapy is: LOW RISK: Prophylaxis of venous thrombosis INR: 2.0-3.0 Treatment of pulmonary embolism 2.0-3.0 Prevention of systemic embolism 2.0-3.0 HIGH RISK: Mechanical prosthetic valves 2.5-3.5 Performed By: #### G FR, BMP, MG #### [facility] [address] [place] [address] PT Coag (PPP) [Time] 14.3 s Normal 9.0-14.4 [facility] Comment on above: Result Comment: Effe ctive 12/16/07, Protime results may be affected by some antibiotics (i.e. Ciprofloxacin, Azithromycin, Bactrim) which may potentiate the action of oral anticoagulants, with further increases in Protime/INR. Performed By: #### G FR, BMP, MG #### [facility] [address] [place] [address] Partial pressure of carbon d ioxide measurementOrdered By: Jessi Kaur on 06-27-2024 Arterial Blood Partial Pressure CO2 38.3 mmHg 35-45 [facility] Partial pressure of oxygen m easurementOrdered By: Jessi Kaur on 06-27-2024 Arterial Blood Partial Pressure O2 50 mmHG Low 75-100 [facility] Phosphoruson 06-27-2024 Phosphate [Mass/Vol] 2.7 mg/dL Normal 2.5-4.9 [facility] Comment on above: Performed By: #### L 100.0100, L501.5200, L500.4050, L501.2300 ####[facility] [address] [place], [address] Phosphorus measurementOrdere d By: Jessi Kaur on 06-27-2024 Phosphorus Level 2.7 mg/dL 2.5-4.9 [facility] Platelet countOrdered By: Oscar Kaur on 06-27-2024 Platelet Count See comment 150-450 [facility] Comment on above: Please note: For thi [...] 06-27-2024 Platelets LM Ql (Bld) ADEQUATE ADEQ [facility] Platelet morphologyOrdered B y: Jessi Kaur on 06-27-2024 Platelet morphology finding Nom (Bld) CLUMPED [facility] Platelet morphology finding Nom (Bld)Ordered By: Jessi Kaur on 06-27-2024 Platelet Morphology Comment CLUMPED [facility] Platelets LM Ql (Bld)Ordered By: Jessi Kaur on 06-27-2024 Platelet Estimate ADEQUATE ADEQ [facility] Potassium measurementOrdered By: Jessi Kaur on 06-27-2024 Potassium [Moles/Vol] 3.3 mmol/L Low 3.5-5.1 [facility] Prothrombin Time w/INRon INR Coag (PPP) [Relative time] 1.3 {INR} Normal [facility] Comment on above: Performed By: #### L 300.3900 ####[facility] [address] [place], [address] PT Coag (PPP) [Time] 16.1 s High 11.7-14.9 [facility] Comment on above: Performed By: #### L 300.3900 ####[facility] [address] [place], [address] Prothrombin timeOrdered By: Jessi Kaur on 06-27-2024 PT Coag (PPP) [Time] 16.1 s High 11.7-14.9 [facility] RBC Auto (Bld) [#/Vol]Ordere d By: Jessi Kaur on 06-27-2024 RBC (Bld) [#/Vol] 3.67 10*6/uL Low 4.6-6.2 [facility] RBC morphology finding Nom ( Bld)Ordered By: Jessi Kaur on 06-27-2024 Red Blood Cell Morphology NORM C+C NORMAL NORM C&C [facility] Serum anion gap measurementO rdered By: Jessi Kaur on 06-27-2024 Anion gap [Moles/Vol] 7 mmol/L 5-15 [facility] Serum globulin measurementOr dered By: Jessi Kaur on 06-27-2024 Globulin (S) [Mass/Vol] 4.1 g/dL 2.2-4.2 [facility] Serum or plasma alanine grace otransferase (ALT) measurementOrdered By: Jessi Kaur on 06-27-2024 ALT [Catalytic activity/Vol] 33 U/L 16-61 [facility] Serum or plasma albumin shweta urement (mass/volume)Ordered By: Jessi Kaur on 06-27-2024 Albumin [Mass/Vol] 2.8 g/dL Low 3.2-5.0 [facility] Serum or plasma alkaline gibson sphatase measurementOrdered By: Jessi Kaur on 06-27-2024 ALP [Catalytic activity/Vol] 91 U/L 45-117 [facility] Serum or plasma calcium shweta urement (mass/volume)Ordered By: Jessi Kaur on 06-27-2024 Calcium [Mass/Vol] 8.8 mg/dL 8.5-10.1 [facility] Serum or plasma creatinine m easurement (mass/volume)Ordered By: Jessi Kaur on 06-27-2024 Creatinine [Mass/Vol] 1.00 mg/dL 0.70-1.30 [facility] Comment on above: The validity of the calculated GFR & GFRAA in patients over 70 years has not been determined. Clinical correlation is essential. Serum or plasma urea nitroge n measurement (mass/volume)Ordered By: Jessi Kaur on 06-27-2024 Urea nitrogen [Mass/Vol] 24 mg/dL High 7-18 [facility] Sodium levelOrdered By: Jessi Kaur on 06-27-2024 Sodium [Moles/Vol] 139 mmol/L 136-145 [facility] TSHRon 06-27-2024 TSH 2.003 mIU/mL Normal 0.550-4.78 0 [facility] Comment on above: Performed By: #### G FR, BMP, MG #### [place] [address] Total carbon dioxide measure mentOrdered By: Jessi Kaur on 06-27-2024 Blood Gas Total CO2 24 mmol/L [facility] CO2 [Moles/Vol] 24 mmol/L [facility] Total proteinOrdered By: Ana Luisa Kaur on 06-27-2024 Protein [Mass/Vol] 6.9 g/dL 6.4-8.2 [facility] White blood cell (WBC) count Ordered By: Jessi Kaur on 06-27-2024 WBC (Bld) [#/Vol] 6.9 10*3/uL 4.4-11.0 [facility] XR CHEST 1 VIEWon 06-27-2024 XR CHEST [...] on 06-27-2024 Blood Gas pH 7.39 7.35-7.45 [facility] 12 Lead EKGon 06-26-2024 12 Lead EKG Normal [facility] Bedside Glucoseon 06-26-2024 FINGERSTICK GLU 250 mg/dL High 74-106 [facility] Comment on above: Result Comment: MARIUM GEMENT OF PATIENT CARE PER NURSING PROTOCOL Performed By: #### L 501.080 ####[facility] [address] [place], [address] FINGERSTICK GLU 169 mg/dL High 74-106 [facility] Comment on above: Result Comment: MARIUM GEMENT OF PATIENT CARE PER NURSING PROTOCOL Performed By: #### L 501.080 ####[facility] [address] [place], [address] FINGERSTICK GLU 218 mg/dL High 74-106 [facility] Comment on above: Result Comment: MARIUM ARRIAZA OF PATIENT CARE PER NURSING PROTOCOL Performed By: #### L 501.080 ####[facility] [address] [place], [address] CBC W/Diff, Automatedon - PLT EST SLT DEC Normal ADEQ [facility] Comment on above: Performed By: #### L 501.5200, L501.2300, L500.4050, L100.0100 ####[facility] [address] [place], [address] Comprehensive Metabolic Prof ilon 06-26-2024 Albumin [Mass/Vol] 2.6 g/dL Low 3.2-5.0 [facility] Comment on above: Performed By: #### L 501.5200, L501.2300, L500.4050, L100.0100 ####[facility] [address] [place], [address] Albumin/Globulin [Mass ratio] 0.6 {ratio} Low 0.9-2.4 [facility] Comment on above: Performed By: #### L 501.5200, L501.2300, L500.4050, L100.0100 ####[facility] [address] [place], [address] ALK P 92 U/L Normal 45-117 [facility] Comment on above: Performed By: #### L 501.5200, L501.2300, L500.4050, L100.0100 ####[facility] [address] [place], [address] ALT [Catalytic activity/Vol] 34 U/L Normal 16-61 [facility] Comment on above: Performed By: #### L 501.5200, L501.2300, L500.4050, L100.0100 ####[facility] [address] [place], [address] AST [Catalytic activity/Vol] 25 U/L Normal 15-37 [facility] Comment on above: Performed By: #### L 501.5200, L501.2300, L500.4050, L100.0100 ####[facility] [address] [place], [address] Bilirubin [Mass/Vol] 0.70 mg/dL Normal 0.20-1.00 [facility] Comment on above: Result Comment: For patients on eltrombopag therapy, use of Dimension Oxford TBIL is not recommended. Performed By: #### L 501.5200, L501.2300, L500.4050, L100.0100 ####[facility] [address] [place], [address] BUN/CRE 21.2 RATIO High 10-20 [facility] Comment on above: Performed By: #### L 501.5200, L501.2300, L500.4050, L100.0100 ####[facility] [address] [place], [address] CA,Total 8.4 mg/dL Low 8.5-10.1 [facility] Comment on above: Performed By: #### L 501.5200, L501.2300, L500.4050, L100.0100 ####[facility] [address] [place], [address] Chloride [Moles/Vol] 110 mmol/L High 98-107 [facility] Comment on above: Performed By: #### L 501.5200, L501.2300, L500.4050, L100.0100 ####[facility] [address] [place], [address] CO2 [Moles/Vol] 24.0 mmol/L Normal 21.0-32.0 [facility] Comment on above: Performed By: #### L 501.5200, L501.2300, L500.4050, L100.0100 ####[facility] [address] [place], [address] Creatinine [Mass/Vol] 0.90 mg/dL Normal 0.70-1.30 [facility] Comment on above: Result Comment: The validity of the calculated GFR GFRAA in patients over70 years has not been determined. Clinical correlation isessential. Performed By: #### L 501.5200, L501.2300, L500.4050, L100.0100 ####[facility] [address] [place], [address] ECRCL 92.98 ml/min Normal [facility] Comment on above: Performed By: #### L 501.5200, L501.2300, L500.4050, L100.0100 ####[facility] [address] [place], [address] EST GFR - AA 106 mL/min Normal >60 [facility] Comment on above: Result Comment: Afri can Uruguayan GFR Calc Performed By: #### L 501.5200, L501.2300, L500.4050, L100.0100 ####[facility] [address] [place], [address] GAP 6 Normal 5-15 [facility] Comment on above: Performed By: #### L 501.5200, L501.2300, L500.4050, L100.0100 ####[facility] [address] [place], [address] GFR/1.73 sq M.predicted among non-blacks MDRD (S/P/Bld) [Vol rate/Area] 88 mL/min/{1.73_m2} Normal >60 [facility] Comment on above: Result Comment: Non- GFR Calc Performed By: #### L 501.5200, L501.2300, L500.4050, L100.0100 ####[facility] [address] [place], [address] Globulin (S) [Mass/Vol] 4.2 g/dL Normal 2.2-4.2 [facility] Comment on above: Performed By: #### L 501.5200, L501.2300, L500.4050, L100.0100 ####[facility] [address] [place], [address] Glucose [Mass/Vol] 244 mg/dL High 74-106 [facility] Comment on above: Result Comment: Gluc ose result greater than or equal to 200 mg/dLsuggests DIABETES MELLITUS per A.D.A. criteria. Performed By: #### L 501.5200, L501.2300, L500.4050, L100.0100 ####[facility] [address] [place], [address] Potassium [Moles/Vol] 3.4 mmol/L Low 3.5-5.1 [facility] Comment on above: Performed By: #### L 501.5200, L501.2300, L500.4050, L100.0100 ####[facility] [address] [place], [address] Sodium [Moles/Vol] 140 mmol/L Normal 136-145 [facility] Comment on above: Performed By: #### L 501.5200, L501.2300, L500.4050, L100.0100 ####[facility] [address] [place], [address] T PROT 6.8 g/dL Normal 6.4-8.2 [facility] Comment on above: Performed By: #### L 501.5200, L501.2300, L500.4050, L100.0100 ####[facility] [address] [place], [address] Urea nitrogen [Mass/Vol] 19 mg/dL High 7-18 [facility] Comment on above: Performed By: #### L 501.5200, L501.2300, L500.4050, L100.0100 ####[facility] [address] [place], [address] Glucose measurement at [facility] deOrdered By: Jessi Kaur on 06-26-2024 Bedside Glucose (Misc Panel) 250 mg/dL High 74-106 [facility] Comment on above: MANAGEMENT OF PATIEN T CARE PER NURSING PROTOCOL Glucose [Mass/Vol] 250 mg/dL High 74-106 [facility] High density lipoprotein (HD L) measurementOrdered By: Jessi Kaur on 06-26-2024 Cholesterol in HDL [Mass/Vol] 56 mg/dL >40 [facility] Comment on above: The drugs N-Acetylcy steine and Metamizole may falsely depress this assay. Reference Range HDL <40 mg/dL Low HDL Cholesterol HDL >or= 60 mg/dL High HDL Cholesterol High density lipoprotein (HDL) measurement 56 mg/dL >40 [facility] Lipid Profileon 06-26-2024 Cholesterol [Mass/Vol] 112 mg/dL Normal 200 [facility] Comment on above: Result Comment: <200 mg/dL Desirable 200-240 mg/dL Borderline >240 mg/dL High Risk Performed By: #### L 500.4100 ####[facility] [address] [place], [address] Cholesterol in HDL [Mass/Vol] 56 mg/dL Normal [facility] Comment on above: Result Comment: The drugs N-Acetylcysteine and Metamizole may falselydepress this assay. Reference Range HDL <40 mg/dL Low HDL Cholesterol HDL >or= 60 mg/dL High HDL Cholesterol Performed By: #### L 500.4100 ####[facility] [address] [place], [address] Cholesterol in LDL [Mass/Vol] 46 mg/dL Normal 0-130 [facility] Comment on above: Performed By: #### L 500.4100 ####[facility] [address] [place], [address] Cholesterol in VLDL [Mass/Vol] 10 mg/dL Normal 5-40 [facility] Comment on above: Performed By: #### L 500.4100 ####[facility] [address] [place], [address] Triglyceride [Mass/Vol] 51 mg/dL Normal [facility] Comment on above: Result Comment: The drugs N-Acetylcysteine and Metamizole may falselydepress this assay.Serum Triglycerides Reference Interval Normal <150 mg/dL Borderline high 150 - 199 mg/dL High 200 - 499 mg/dL Very High > or = 500 mg/dL Performed By: #### L 500.4100 ####[facility] [address] [place], [address] Low density lipoprotein (LDL ) cholesterol measurementOrdered By: Jessi Kaur on 06-26-2024 Cholesterol in LDL [Mass/Vol] 46 mg/dL 0-130 [facility] Low density lipoprotein (LDL) cholesterol measurement 46 mg/dL 0-130 [facility] Magnesiumon 06-26-2024 Magnesium [Mass/Vol] 1.9 mg/dL Normal 1.6-2.6 [facility] Comment on above: Performed By: #### L 501.5200, L501.2300, L500.4050, L100.0100 ####[facility] [address] [place], [address] Phosphoruson 06-26-2024 Phosphate [Mass/Vol] 2.4 mg/dL Low 2.5-4.9 [facility] Comment on above: Performed By: #### L 501.5200, L501.2300, L500.4050, L100.0100 ####[facility] [address] [place], [address] Serum or plasma cholesterol measurement (mass/volume)Ordered By: Jessi Kaur on 06-26-2024 Cholesterol [Mass/Vol] 112 mg/dL <200 [facility] Comment on above: <200 mg/dL Desirable 200-240 mg/dL Borderline >240 mg/dL High Risk Serum or plasma vancomycin l evel (mass/volume)Ordered By: Jessi Kaur on 06-26-2024 Vancomycin [Mass/Vol] 15.9 ug/mL High 0.0-15.0 [facility] Triglycerides measurementOrd ered By: Jessi Kaur on 06-26-2024 Triglyceride [Mass/Vol] 51 mg/dL <199 [facility] Comment on above: The drugs N-Acetylcy steine and Metamizole may falsely depress this assay.Serum Triglycerides Reference Interval Normal <150 mg/dL Borderline high 150 - 199 mg/dL High 200 - 499 mg/dL Very High > or = 500 mg/dL Vancomycin [Mass/Vol]Ordered By: Jessi Kaur on 06-26-2024 Random Vancomycin Level 15.9 ug/mL High 0.0-15.0 [facility] Comment on above: VANCOMYCIN STANDARD DRUG THERAPY: CRITICAL VALUE IS > 15.0 mg/L VANCOMYCIN HIGH INTENSITY THERAPY: CRITICAL VALUE IS > 20.0 mg/L PLEASE CONTACT PHARMACY SERVICES (#1702) FOR INTERPRETATIONOF RESULTS. THIS RESULT DOES NOT REPRESENT A PEAK OR TROUGHLEVEL FOR THIS DRUG. Vancomycin, Random Levelon 0 06-26-2024 VANCO, RANDOM 15.9 ug/mL High 0.0-15.0 [facility] Comment on above: Result Comment: VANC OMYCIN STANDARD DRUG THERAPY: CRITICAL VALUE IS > 15.0 mg/LVANCOMYCIN HIGH INTENSITY THERAPY: CRITICAL VALUE IS > 20.0 mg/LPLEASE CONTACT PHARMACY SERVICES (#2592) FOR INTERPRETATIONOF RESULTS. THIS RESULT DOES NOT REPRESENT A PEAK OR TROUGHLEVEL FOR THIS DRUG. Performed By: #### L 501.8850 ####[facility] [address] [place], [place], [address] Very low density lipoprotein (VLDL) cholesterol measurementOrdered By: Jessi Kaur on 06-26-2024 Very low density lipoprotein (VLDL) cholesterol measurement 10 mg/dL 5-40 [facility] VLDL Cholesterol 10 mg/dL -40 [facility] 12 Lead EKGon 06-25-2024 12 Lead EKG Normal [facility] 12 Lead EKG Normal [facility] Bedside Glucoseon 06-25-2024 FINGERSTICK GLU 305 mg/dL High 74-106 [facility] Comment on above: Result Comment: MARIUM GEMENT OF PATIENT CARE PER NURSING PROTOCOL Performed By: #### L 501.080 ####[facility] [address] [place], [address] FINGERSTICK GLU 194 mg/dL High 74-106 [facility] Comment on above: Result Comment: MARIUM GEMENT OF PATIENT CARE PER NURSING PROTOCOL Performed By: #### L 501.080 ####[facility] [address] [place], [address] FINGERSTICK GLU 189 mg/dL High 74-106 [facility] Comment on above: Result Comment: MARIUM GEMENT OF PATIENT CARE PER NURSING PROTOCOL Performed By: #### L 501.080 ####[facility] [address] [place], [address] CBC W/Diff, Automatedon 06-04 PLT EST ADEQUATE Normal ADEQ [facility] Comment on above: Performed By: #### L 100.0100, L500.4050 ####[facility] [address] [place], [address] PLT TNP Normal 150-450 [facility] Comment on above: Result Comment: Plea se note: For this sample, a platelet estimate isprovided rather than a platelet count due to plateletclumping. Other parameters associated with this sample arenot affected by platelet clumping. If a more accurateplatelet count is required, a redraw of the patient will benecessary. Performed By: #### L 100.0100, L500.4050 ####[facility] [address] [place], [address] Cardiac Cath Interventionon 06-25-2024 Cardiac Cath Intervention Normal [facility] Comprehensive Metabolic Prof ilon 01-23-2025 Albumin [Mass/Vol] 2.8 g/dL Low 3.2-5.0 [facility] Comment on above: Performed By: #### L 100.0100, L500.4050 ####[facility] [address] [place], [address] Albumin/Globulin [Mass ratio] 0.7 {ratio} Low 0.9-2.4 [facility] Comment on above: Performed By: #### L 100.0100, L500.4050 ####[facility] [address] [place], [address] ALK P 98 U/L Normal 45-117 [facility] Comment on above: Performed By: #### L 100.0100, L500.4050 ####[facility] [address] [place], [address] ALT [Catalytic activity/Vol] 34 U/L Normal 16-61 [facility] Comment on above: Performed By: #### L 100.0100, L500.4050 ####[facility] [address] [place], [address] AST [Catalytic activity/Vol] 33 U/L Normal 15-37 [facility] Comment on above: Performed By: #### L 100.0100, L500.4050 ####[facility] [address] [place], [address] Bilirubin [Mass/Vol] 0.70 mg/dL Normal 0.20-1.00 [facility] Comment on above: Result Comment: For patients on eltrombopag therapy, use of Dimension [place] TBIL is not recommended. Performed By: #### L 100.0100, L500.4050 ####[facility] [address] [place], [address] BUN/CRE 24.0 RATIO High 10-20 [facility] Comment on above: Performed By: #### L 100.0100, L500.4050 ####[facility] [address] [place], [address] CA,Total 8.7 mg/dL Normal 8.5-10.1 [facility] Comment on above: Performed By: #### L 100.0100, L500.4050 ####[facility] [address] [place], [address] Chloride [Moles/Vol] 109 mmol/L High 98-107 [facility] Comment on above: Performed By: #### L 100.0100, L500.4050 ####[facility] [address] [place], [address] CO2 [Moles/Vol] 26.0 mmol/L Normal 21.0-32.0 [facility] Comment on above: Performed By: #### L 100.0100, L500.4050 ####[facility] [address] [place], [address] Creatinine [Mass/Vol] 0.83 mg/dL Normal 0.70-1.30 [facility] Comment on above: Result Comment: The validity of the calculated GFR GFRAA in patients over70 years has not been determined. Clinical correlation isessential. Performed By: #### L 100.0100, L500.4050 ####[facility] [address] [place], [address] ECRCL 101.08 ml/min Normal [facility] Comment on above: Performed By: #### L 100.0100, L500.4050 ####[facility] [address] [place], [address] EST GFR - AA 115 mL/min Normal >60 [facility] Comment on above: Result Comment: Afri can [place] GFR Calc Performed By: #### L 100.0100, L500.4050 ####[facility] [address] [place], [address] GAP 6 Normal 5-15 [facility] Comment on above: Performed By: #### L 100.0100, L500.4050 ####[facility] [address] [place], [address] GFR/1.73 sq M.predicted among non-blacks MDRD (S/P/Bld) [Vol rate/Area] 95 mL/min/{1.73_m2} Normal >60 [facility] Comment on above: Result Comment: Non- GFR Calc Performed By: #### L 100.0100, L500.4050 ####[facility] [address] [place], [address] Globulin (S) [Mass/Vol] 4.0 g/dL Normal 2.2-4.2 [facility] Comment on above: Performed By: #### L 100.0100, L500.4050 ####[facility] [address] [place], [address] Glucose [Mass/Vol] 171 mg/dL High 74-106 [facility] Comment on above: Result Comment: Fast ing Glucose result greater than or equal to 126 mg/dLsuggests DIABETES MELLITUS per A.D.A. criteria. Performed By: #### L 100.0100, L500.4050 ####[facility] [address] [place], [address] Potassium [Moles/Vol] 4.2 mmol/L Normal 3.5-5.1 [facility] Comment on above: Performed By: #### L 100.0100, L500.4050 ####[facility] [address] [place], [address] Sodium [Moles/Vol] 141 mmol/L Normal 136-145 [facility] Comment on above: Performed By: #### L 100.0100, L500.4050 ####[facility] [address] [place], [address] T PROT 6.8 g/dL Normal 6.4-8.2 [facility] Comment on above: Performed By: #### L 100.0100, L500.4050 ####[facility] [address] [place], [address] Urea nitrogen [Mass/Vol] 20 mg/dL High 7-18 [facility] Comment on above: Performed By: #### L 100.0100, L500.4050 ####[facility] [address] [place], [address] Consultation - Cardiologyon 06-25-2024 Consultation - Cardiology Normal [facility] Mean platelet volume determi nationOrdered By: Jessi Kaur on 06-25-2024 Mean Platelet Volume TNP [facility] Comment on above: Test not performed Modified Barium Swallow Stud yon 06-25-2024 Modified Barium Swallow Study Normal [facility] Serum or plasma trough vanco mycin levelOrdered By: Jessi Kaur on 06-25-2024 Vancomycin trough [Mass/Vol] 21.4 ug/mL High 5.0-15.0 [facility] Vancomycin trough [Mass/Vol] Ordered By: Jessi Kaur on 06-25-2024 Vancomycin Level Trough 21.4 ug/mL High 5.0-15.0 [facility] Comment on above: VANCOMYCIN STANDARED DRUG THERAPY TROUGH LEVEL: 5.0 - 15.0 mg/L VANCOMYCIN HIGH INTENSITY THERAPY TROUGH LEVEL: 15.0 - 20.0 mg/L High Intensity therapy recommended for serious lifethreatening infections include:- Iimuwyptdn-Haxevtnafiwg-Eyytqukun (Ventilator/Healtcare Associated)-Sepsis PLEASE CONTACT PHARMACY SERVICES (#4342) FOR INTERPRETATIONOF RESULTS. Vancomycin, Trough Levelon 0 06-25-2024 VANCO, TROUGH 21.4 ug/mL High 5.0-15.0 [facility] Comment on above: Order Comment: Comme nts: Trough to be drawn 30 mins prior to scheduled [id number] Result Comment: VANC OMYCIN STANDARED DRUG THERAPY TROUGH LEVEL: 5.0 - 15.0 mg/LVANCOMYCIN HIGH INTENSITY THERAPY TROUGH LEVEL: 15.0 - 20.0 mg/LHigh Intensity therapy recommended for serious lifethreatening infections include:- Tcjmbdchev-Rferlbyvpoug-Tgndvkbnm (Ventilator/Healtcare Associated)-SepsisPLEASE CONTACT PHARMACY SERVICES (#5293) FOR INTERPRETATIONOF RESULTS. Performed By: #### L 501.8820 ####[facility] [address] [place], [address] 12 Lead EKGon 06-24-2024 12 Lead EKG Normal [facility] 12 Lead EKG Normal [facility] Basic Metabolic Profile (BMP )on 06-24-2024 BUN/CRE 20.8 RATIO High 10-20 [facility] Comment on above: Order Comment: 1Y Performed By: #### L 100.0100, L501.5425, L500.2500 ####[facility] [address] [place], [address] CA,Total 9.3 mg/dL Normal 8.5-10.1 [facility] Comment on above: Order Comment: 1Y Performed By: #### L 100.0100, L501.5425, L500.2500 ####[facility] [address] [place], [address] Chloride [Moles/Vol] 100 mmol/L Normal 98-107 [facility] Comment on above: Order Comment: 1Y Performed By: #### L 100.0100, L501.5425, L500.2500 ####[facility] [address] [place], [address] CO2 [Moles/Vol] 27.0 mmol/L Normal 21.0-32.0 [facility] Comment on above: Order Comment: 1Y Performed By: #### L 100.0100, L501.5425, L500.2500 ####[facility] [address] [place], [address] Creatinine [Mass/Vol] 1.01 mg/dL Normal 0.70-1.30 [facility] Comment on above: Order Comment: 1Y Result Comment: The validity of the calculated GFR GFRAA in patients over70 years has not been determined. Clinical correlation isessential. Performed By: #### L 100.0100, L501.5425, L500.2500 ####[facility] [address] [place], [address] ECRCL 83.13 ml/min Normal [facility] Comment on above: Order Comment: 1Y Performed By: #### L 100.0100, L501.5425, L500.2500 ####[facility] [address] [place], [address] EST GFR - AA 92 mL/min Normal >60 [facility] Comment on above: Order Comment: 1Y Result Comment: Afri can [place]rugu[place] GFR Calc Performed By: #### L 100.0100, L501.5425, L500.2500 ####[facility] [address] [place], [address] GAP 9 Normal 5-15 [facility] Comment on above: Order Comment: 1Y Performed By: #### L 100.0100, L501.5425, L500.2500 ####[facility] [address] [place], [address] GFR/1.73 sq M.predicted among non-blacks MDRD (S/P/Bld) [Vol rate/Area] 76 mL/min/{1.73_m2} Normal >60 [facility] Comment on above: Order Comment: 1Y Result Comment: Non- GFR Calc Performed By: #### L 100.0100, L501.5425, L500.2500 ####[facility] [address] [place], [address] Glucose [Mass/Vol] 198 mg/dL High 74-106 [facility] Comment on above: Order Comment: 1Y Result Comment: Fast ing Glucose result greater than or equal to 126 mg/dLsuggests DIABETES MELLITUS per A.D.A. criteria. Performed By: #### L 100.0100, L501.5425, L500.2500 ####[facility] [address] [place], [address] Potassium [Moles/Vol] 3.9 mmol/L Normal 3.5-5.1 [facility] Comment on above: Order Comment: 1Y Result Comment: Slig ht Hemolysis, Result may be falsely increased. Performed By: #### L 100.0100, L501.5425, L500.2500 ####[facility] [address] [place], [address] Sodium [Moles/Vol] 136 mmol/L Normal 136-145 [facility] Comment on above: Order Comment: 1Y Performed By: #### L 100.0100, L501.5425, L500.2500 ####[facility] [address] [place], [address] Urea nitrogen [Mass/Vol] 21 mg/dL High 7-18 [facility] Comment on above: Order Comment: 1Y Performed By: #### L 100.0100, L501.5425, L500.2500 ####[facility] [address] [place], [address] Bedside Glucoseon 06-24-2024 FINGERSTICK GLU 149 mg/dL High 74-106 [facility] Comment on above: Result Comment: MARIUM GEMENT OF PATIENT CARE PER NURSING PROTOCOL Performed By: #### L 501.080 ####[facility] [address] [place], [address] FINGERSTICK GLU 166 mg/dL High 74-106 [facility] Comment on above: Result Comment: MARIUM GEMENT OF PATIENT CARE PER NURSING PROTOCOL Performed By: #### L 501.080 ####[facility] [address] [place], [address] FINGERSTICK GLU 150 mg/dL High 74-106 [facility] Comment on above: Result Comment: MARIUM GEMENT OF PATIENT CARE PER NURSING PROTOCOL Performed By: #### L 501.080 ####[facility] [address] [place], [address] FINGERSTICK GLU 157 mg/dL High 74-106 [facility] Comment on above: Result Comment: MARIUM GEMENT OF PATIENT CARE PER NURSING PROTOCOL Performed By: #### L 501.080 ####[facility] [address] [place], [address] Blood cultureOrdered By: Dayana Jama on 06-24-2024 Bacteria identified Cx Nom (Bld) No growth in 5 days. [facility] CBC W/Diff, Automatedon 06-04 PLT EST A Normal ADEQ [facility] Comment on above: Performed By: #### L 100.0100, L501.5425, L500.2500 ####[facility] [address] [place], [address] PLT MORPH CLUMPED Normal [facility] Comment on above: Performed By: #### L 100.0100, L501.5425, L500.2500 ####[facility] [address] [place], [address] Absolute Neut Normal 2.0-7.7 [facility] Comment on above: Result Comment: Canc elled via OM: Duplicate Order Performed By: #### L 100.0100 ####[facility] [address] [place], [address] HCT Normal 40-54 [facility] Comment on above: Result Comment: Canc elled via OM: Duplicate Order Performed By: #### L 100.0100 ####[facility] [address] [place], [address] HGB Normal 13.0-16.5 [facility] Comment on above: Result Comment: Canc elled via OM: Duplicate Order Performed By: #### L 100.0100 ####[facility] [address] [place], [address] MCH Normal 27.0-32.0 [facility] Comment on above: Result Comment: Canc elled via OM: Duplicate Order Performed By: #### L 100.0100 ####[facility] [address] [place], [address] MCHC Normal 32-36 [facility] Comment on above: Result Comment: Canc elled via OM: Duplicate Order Performed By: #### L 100.0100 ####[facility] [address] [place], [address] MCV Normal 80-94 [facility] Comment on above: Result Comment: Canc elled via OM: Duplicate Order Performed By: #### L 100.0100 ####[facility] [address] [place], [address] NEUT% Normal 47-70 [facility] Comment on above: Result Comment: Canc elled via OM: Duplicate Order Performed By: #### L 100.0100 ####[facility] [address] [place], [address] PLT Normal 150-450 [facility] Comment on above: Result Comment: Canc elled via OM: Duplicate Order Performed By: #### L 100.0100 ####[facility] [address] [place], [address] RBC Normal 4.6-6.2 [facility] Comment on above: Result Comment: Canc elled via OM: Duplicate Order Performed By: #### L 100.0100 ####[facility] [address] [place], [address] RDW CV Normal 11.6-14.6 [facility] Comment on above: Result Comment: Canc elled via OM: Duplicate Order Performed By: #### L 100.0100 ####[facility] [address] [place], [address] RDW SD Normal 35.1-43.9 [facility] Comment on above: Result Comment: Canc elled via OM: Duplicate Order Performed By: #### L 100.0100 ####[facility] [address] [place], [address] WBC Normal 4.4-11.0 [facility] Comment on above: Result Comment: Canc elled via OM: Duplicate Order Performed By: #### L 100.0100 ####[facility] [address] [place], [address] Chest 1 View (Portable)on Chest 1 View (Portable) Normal [facility] Echo Complete W/ Contraston 06-24-2024 Echo Complete W/ Contrast Normal [facility] Emergency Department Summary on 06-24-2024 Emergency Department Summary Normal [facility] H AND P Exam - Hospitaliston 06-24-2024 H&P Exam - Hospitalist Normal [facility] Influenza virus A and B and SARS-CoV-2 (COVID-19) and Respiratory syncytial virus RNAOrdered By: Jessi Kaur on 06-24-2024 SARS-CoV-2 (COVID-19) RNA ZOE+probe Ql (Unsp spec) [facility] L. pneumophila Ag Ql (U)Orde red By: Jessi Kaur on 06-24-2024 Legionella Antigen [facility] L501.4020on 06-24-2024 TROPONIN-I HS 417 pg/mL Invalid Interpretation Code 3.0-78.0 [facility] Comment on above: Order Comment: Comme nts: SPECIMEN #3'TROP' Serial specimen #1, #2 or #3: 3Comments: add on please3 Result Comment: Crit ical Result(s) Called at: 17:18:34 06/24/2024 by: SERENITY. Results read back by Jacinda Gillis Please Note: New Test Units and Gender Specific Reference Ranges. For more information see Policy Stat Procedure Oxford High Sensitivity Troponin (TNIH) and attachments. Performed By: #### L 501.4020 ####[facility] [address] [place], [address] TROPONIN-I HS 260 pg/mL Invalid Interpretation Code 3.0-78.0 [facility] Comment on above: Order Comment: Comme nts: SPECIMEN #2'TROP' Serial specimen #1, #2 or #3: 2 Result Comment: Crit ical Result(s) Called at: 13:28:45 06/24/2024 by:DELVIS CASANOVA TO [facility]. Results read back by same. Please Note: New Test Units and Gender Specific Reference Ranges. For more information see Policy Stat Procedure [place] High Sensitivity Troponin (TNIH) and attachments. Performed By: #### L 501.5200, L501.4020 ####[facility] [address] [place], [address] L501.5425on 06-24-2024 TROPONIN-I HS 109 pg/mL High 3.0-78.0 [facility] Comment on above: Order Comment: 1Y Result Comment: Plea se Note: New Test Units and Gender Specific Reference Ranges. For more information see Policy Stat Procedure [place] High Sensitivity Troponin (TNIH) and attachments. Performed By: #### L 100.0100, L501.5425, L500.2500 ####[facility] [address] [place], [address] Lactic Acidon 06-24-2024 Lactate [Moles/Vol] 1.4 mmol/L Normal 0.4-1.9 [facility] Comment on above: Performed By: #### L 503.6005 ####[facility] [address] [place], [address] Lactate [Moles/Vol] 2.4 mmol/L Invalid Interpretation Code 0.4-1.9 [facility] Comment on above: Order Comment: Comme nts: if result >2, system reflex orders 2nd test @ 4hrsY Result Comment: Crit ical Result(s) Called at: 13:27:25 06/24/2024 by:DELVIS CASANOVA TO [facility] [place]. Results read back by same. Performed By: #### L 503.6005 ####[facility] [address] [place], [address] Lactate [Moles/Vol] 1.9 mmol/L Normal 0.4-1.9 [facility] Comment on above: Order Comment: Y Performed By: #### M 200.1000, L503.6005 ####[facility] [address] [place], [address] Lactic acid measurementOrder ed By: Jessi Kaur on 06-24-2024 Lactate [Moles/Vol] 1.4 mmol/L 0.4-2.0 [facility] Legionella Antigen Urineon 0 06-24-2024 LEGU Normal [facility] Comment on above: Performed By: #### M 300.4500, M300.4600 ####[facility] [address] [place], [address] M100.678on 06-24-2024 M100.678 Pending SARS-CoV-2 (COVID 19) Negative INFLUENZA A Negative INFLUENZA B Negative RSV PCR Negative [facility] Comment on above: Performed By: #### M 100.678 ####[facility] [address] [place], [address] Magnesiumon 06-24-2024 Magnesium [Mass/Vol] 1.9 mg/dL Normal 1.6-2.6 [facility] Comment on above: Order Comment: Comme nts: SPECIMEN #2'TROP' Serial specimen #1, #2 or #3: 22 Performed By: #### L 501.5200, L501.4020 ####[facility] [address] [place], [address] Strep pneumoniae Antig(UR,CS F)on 06-24-2024 STPAG Normal [facility] Comment on above: Performed By: #### M 300.4500, M300.4600 ####[facility] [address] [place], [address] Streptococcus pneumoniae ant igen assayOrdered By: Jessi Kaur on 06-24-2024 Streptococcus pneumoniae Antigen (M [facility] Troponin IOrdered By: Jessi blake on 06-24-2024 Troponin I 417 pg/mL High 3.0-78.0 [facility] Troponin I High Sensitivity 417 pg/mL High 3.0-78.0 [facility] Comment on above: Critical Result(s) C alled at: 17:18:34 06/24/2024 by: ANN BILLS. Results read back by Jacinda Gillis Please Note: New Test Units and Gender Specific Reference Ranges. For more information see Policy Stat Procedure [place] High Sensitivity Troponin (TNIH) and attachments. Urine Legionella pneumophila antigen detectionOrdered By: Jessi Kaur on 06-24-2024 L. pneumophila Ag Ql (U) [facility] Emergency Department Summary on 05-25-2024 Emergency Department Summary Normal [facility] Spine Lumbar without Contras ton 05-25-2024 Spine Lumbar without Contrast Normal [facility] BNP,B-Type NATRIURETIC PEPTI Vale 03-22-2024 Natriuretic peptide B (Bld) [Mass/Vol] 118.9 pg/mL High 0-100 [facility] Comment on above: Performed By: #### L 503.6620, L100.0100, L501.5425, L500.2500 ####[facility] [address] [place], [address] Basic Metabolic Profile (BMP )on 03-22-2024 BUN/CRE 25.4 RATIO High 03-22 [facility] Comment on above: Order Comment: 1Y Performed By: #### L 503.6620, L100.0100, L501.5425, L500.2500 ####[facility] [address] [place], [address] CA,Total 9.2 mg/dL Normal 8.5-10.1 [facility] Comment on above: Order Comment: 1Y Performed By: #### L 503.6620, L100.0100, L501.5425, L500.2500 ####[facility] [address] [place], [address] Chloride [Moles/Vol] 107 mmol/L Normal 98-107 [facility] Comment on above: Order Comment: 1Y Performed By: #### L 503.6620, L100.0100, L501.5425, L500.2500 ####[facility] [address] [place], [address] CO2 [Moles/Vol] 30.0 mmol/L Normal 21.0-32.0 [facility] Comment on above: Order Comment: 1Y Performed By: #### L 503.6620, L100.0100, L501.5425, L500.2500 ####[facility] [address] [place], [address] Creatinine [Mass/Vol] 0.71 mg/dL Normal 0.70-1.30 [facility] Comment on above: Order Comment: 1Y Result Comment: The validity of the calculated GFR GFRAA in patients over70 years has not been determined. Clinical correlation isessential. Performed By: #### L 503.6620, L100.0100, L501.5425, L500.2500 ####[facility] [address] [place], [address] ECRCL 106.35 ml/min Normal [facility] Comment on above: Order Comment: 1Y Performed By: #### L 503.6620, L100.0100, L501.5425, L500.2500 ####[facility] [address] [place], [address] EST GFR - AA 139 mL/min Normal >60 [facility] Comment on above: Order Comment: 1Y Result Comment: Afri can [place] GFR Calc Performed By: #### L 503.6620, L100.0100, L501.5425, L500.2500 ####[facility] [address] [place], [address] GAP 4 Low 5-15 [facility] Comment on above: Order Comment: 1Y Performed By: #### L 503.6620, L100.0100, L501.5425, L500.2500 ####[facility] [address] [place], [address] GFR/1.73 sq M.predicted among non-blacks MDRD (S/P/Bld) [Vol rate/Area] 115 mL/min/{1.73_m2} Normal >60 [facility] Comment on above: Order Comment: 1Y Result Comment: Non- GFR Calc Performed By: #### L 503.6620, L100.0100, L501.5425, L500.2500 ####[facility] [address] [place], [address] Glucose [Mass/Vol] 160 mg/dL High 74-106 [facility] Comment on above: Order Comment: 1Y Result Comment: Fast ing Glucose result greater than or equal to 126 mg/dLsuggests DIABETES MELLITUS per A.D.A. criteria. Performed By: #### L 503.6620, L100.0100, L501.5425, L500.2500 ####[facility] [address] [place], [address] Potassium [Moles/Vol] 3.5 mmol/L Normal 3.5-5.1 [facility] Comment on above: Order Comment: 1Y Performed By: #### L 503.6620, L100.0100, L501.5425, L500.2500 ####[facility] [address] [place], [address] Sodium [Moles/Vol] 141 mmol/L Normal 136-145 [facility] Comment on above: Order Comment: 1Y Performed By: #### L 503.6620, L100.0100, L501.5425, L500.2500 ####[facility] [address] [place], [address] Urea nitrogen [Mass/Vol] 18 mg/dL Normal 7-18 [facility] Comment on above: Order Comment: 1Y Performed By: #### L 503.6620, L100.0100, L501.5425, L500.2500 ####[facility] [address] [place], [address] CBC W/Diff, Automatedon 03-04 PLT EST ADEQUATE Normal ADEQ [facility] Comment on above: Performed By: #### L 503.6620, L100.0100, L501.5425, L500.2500 ####[facility] [address] [place], [address] SMEAR COMMENT SCANNED Normal [facility] Comment on above: Performed By: #### L 503.6620, L100.0100, L501.5425, L500.2500 ####[facility] [address] [place], [address] Chest PA and Lateralon 03-22 Chest PA and Lateral Normal [facility] Emergency Department Summary on 03-22-2024 Emergency Department Summary Normal [facility] L501.4020on 03-22-2024 TROPONIN-I HS 74 pg/mL Normal 3.0-78.0 [facility] Comment on above: Result Comment: Plegrover fritz Note: New Test Units and Gender Specific Reference Ranges. For more information see Policy Stat Procedure [place] High Sensitivity Troponin (TNIH) and attachments. Performed By: #### L 501.4020 ####[facility] [address] [place], [address] L501.5425on 03-22-2024 TROPONIN-I HS 81 pg/mL High 3.0-78.0 [facility] Comment on above: Order Comment: 1Y Result Comment: Marcelle fritz Note: New Test Units and Gender Specific Reference Ranges. For more information see Policy Stat Procedure [place] High Sensitivity Troponin (TNIH) and attachments. Performed By: #### L 503.6620, L100.0100, L501.5425, L500.2500 ####[facility] [address] [place], [address] M100.678on 03-22-2024 M100.678 Pending SARS-CoV-2 (COVID 19) Negative INFLUENZA A Negative INFLUENZA B Negative RSV PCR Negative Normal [facility] Comment on above: Performed By: #### M 100.678 ####[facility] [address] [place], [place], [address] Cardiology Visit Reporton Cardiology Visit Report Normal [facility] No Panel InformationOrdered By: Jessi Olguin on 05-13-2023 Urine Microalbumin/Creatinin e Ratio 6.5 mg/g CRE <30 [facility] Thin prep Papanicolaou smear with manual screeningOrdered By: Jessi Olguin on 05-13-2023 Thin prep Papanicolaou smear with manual screening 9.3 mg/L NO RANGE EST. [facility] Urine creatinine measurement (mass/volume)Ordered By: Jessi Olguin on 05-13-2023 Creatinine (U) [Mass/Vol] 143.00 mg/dL NO RANGE EST. [facility] Absolute lymphocyte countOrd ered By: Jessi Olguin on 05-09-2023 Lymphocytes Auto (Unsp spec) [#/Vol] 2.12 10*3/uL 0.83-4.51 [facility] Basophil percentageOrdered B y: Jessi Olguin on 05-09-2023 Basophils/100 WBC (Bld) 0.6 % 0-1 [facility] Bilirubin [Mass/Vol] 0.70 mg/dL 0.20-1.00 [facility] Comment on above: For patients on eltr ombopag therapy, use of Dimension [place] TBIL is not recommended. Chloride [Moles/Vol] 107 mmol/L 98-[address] [facility] Eosinophils/100 WBC (Bld) 2.0 % 0-5 [facility] Glucose [Mass/Vol] 119 mg/dL 74-106 [facility] Comment on above: Fasting Glucose resu lt from 100 to 125 mg/dL suggests IMPAIRED HOMEOSTASIS per A.D.A. criteria. Neutrophils (Bld) [#/Vol] 3.6 10*3/uL 2.0-7.7 [facility] Neutrophils/100 WBC (Bld) 55.0 % 47-70 [facility] Potassium [Moles/Vol] 4.1 mmol/L 3.5-5.1 [facility] Protein [Mass/Vol] 7.3 g/dL 6.4-8.2 [facility] Sodium [Moles/Vol] 138 mmol/L 136-145 [facility] WBC (Bld) [#/Vol] 6.6 10*3/uL 4.4-11.0 [facility] Blood erythrocytes count (nu mber/volume)Ordered By: Jessi Olguin on 05-09-2023 RBC (Bld) [#/Vol] 4.08 10*6/uL 4.6-6.2 [facility] Blood hemoglobin measurement (mass/volume)Ordered By: Jessi Olguin on 05-09-2023 Hemoglobin (Bld) [Mass/Vol] 12.5 g/dL 13.0-16.5 [facility] Blood lymphocytes/100 leukoc ytesOrdered By: Jessi Olguin on 05-09-2023 Lymphocytes/100 WBC (Bld) 32.1 % 19-41 [facility] Blood manual differential co mment interpretation (narrative result)Ordered By: Jessi Olguin on 05-09-2023 Manual differential comment Royer (Bld) [Interp] SCANNED [facility] Blood monocytes/100 leukocyt esOrdered By: Jessi Olguin on 05-09-2023 Monocytes/100 WBC (Bld) 9.7 % 0-10 [facility] Blood platelet adequacy dete ction by light microscopyOrdered By: Jessi Olguin on 05-09-2023 Platelets LM Ql (Bld) ADEQUATE ADEQ [facility] Determination of erythrocyte mean corpuscular volume (MCV)Ordered By: Jessi Olguin on 05-09-2023 MCV (RBC) [Entitic vol] 95.6 fL 80-94 [facility] Hematocrit Auto (Bld) [Volum e fraction]Ordered By: Jessi Olguin on 05-09-2023 Hematocrit (Bld) [Volume fraction] 39.0 % 40-54 [facility] Laboratory - Chemistry and C hemistry - challengeOrdered By: Jessi Olguin on 05-09-2023 ALP [Catalytic activity/Vol] 74 U/L 45-117 [facility] ALT [Catalytic activity/Vol] 19 U/L 16-61 [facility] CO2 [Moles/Vol] 30.0 mmol/L 21.0-32.0 [facility] Globulin (S) [Mass/Vol] 3.9 g/dL 2.2-4.2 [facility] Urea nitrogen/Creatinine [Mass ratio] 20.8 mg/mg 10-20 [facility] Laboratory - Hematology and Cell countsOrdered By: Jessi Olguin on 05-09-2023 Erythrocyte distribution width (RBC) [Entitic vol] 49.8 fL 35.1-43.9 [facility] Erythrocyte distribution width (RBC) [Ratio] 14.2 % 11.6-14.6 [facility] Immature granulocytes/100 WBC (Bld) 0.600 % 0.0-0.9 [facility] Comment on above: IG% - Immature Granu locytes (promyelocytes, myelocytes and metamyelocytes) > 1% indicates that a LEFT SHIFT is Present. MCH (RBC) [Entitic mass] 30.6 pg 27.0-32.0 [facility] Nucleated RBC/100 WBC (Bld) [Ratio] 0 % 0-5 [facility] MCHC Auto (RBC) [Mass/Vol]Or dered By: Jessi Olguin on 05-09-2023 MCHC (RBC) [Mass/Vol] 32.1 g/dL 32-36 [facility] No Panel InformationOrdered By: Jessi Olguin on 05-09-2023 Estimated GFR (MDRD) Amer 127 mL/min >60 [facility] Comment on above: GFR Calc Estimated GFR (MDRD) Non-Af Amer 105 mL/min >60 [facility] Comment on above: Non- GFR Calc Platelets bldOrdered By: Ana Luisa Olguin on 05-09-2023 Platelets (Bld) [#/Vol] See comment 150-450 [facility] Comment on above: Please note: For thi [...] Albumin [Mass/Vol] 3.4 g/dL 3.2-5.0 [facility] Serum or plasma albumin/glob ulin mass ratioOrdered By: Jessi Olguin on 05-09-2023 Albumin/Globulin [Mass ratio] 0.9 {ratio} 0.9-2.4 [facility] Serum or plasma calcium shweta urement (mass/volume)Ordered By: Jessi Olguin on 05-09-2023 Calcium [Mass/Vol] 9.0 mg/dL 8.5-10.1 [facility] Serum or plasma creatinine m easurement (mass/volume)Ordered By: Jessi Olguin on 05-09-2023 Creatinine [Mass/Vol] 0.77 mg/dL 0.70-1.30 [facility] Comment on above: The validity of the calculated GFR & GFRAA in patients over 70 years has not been determined. Clinical correlation is essential. Serum or plasma urea nitroge n measurement (mass/volume)Ordered By: Jessi Olguin on 05-09-2023 Urea nitrogen [Mass/Vol] 16 mg/dL 7-18 [facility] Thin prep Papanicolaou smear with manual screeningOrdered By: Jessi Olguin on 05-09-2023 Thin prep Papanicolaou smear with manual screening 14 U/L 15-37 [facility] Thin prep Papanicolaou smear with manual screening 1 5-15 [facility] Whole blood hemoglobin A1c/t otal hemoglobin ratio (mass fraction)Ordered By: Jessi Olguin on 05-09-2023 HbA1c (Bld) [Mass fraction] 6.5 % 3.8-5.6 [facility] Comment on above: Normal < 5.7 % Predi abetic 5.7 - 6.4 % Diabetic >or= 6.5 % Please note range changes. Absolute lymphocyte countOrd ered By: Dr. Olguin on 07-13-2022 Lymphocytes Auto (Unsp spec) [#/Vol] 2.25 10*3/uL 0.83-4.51 [facility] Basophil percentageOrdered B y: Dr. Olguin on 07-13-2022 Basophils/100 WBC (Bld) 0.3 % 0-1 [facility] Bilirubin [Mass/Vol] 0.90 mg/dL 0.20-1.00 [facility] Comment on above: For patients on eltr ombopag therapy, use of Dimension [place] TBIL is not recommended. Chloride [Moles/Vol] 104 mmol/L 98-107 [facility] Eosinophils/100 WBC (Bld) 1.8 % 0-5 [facility] Glucose [Mass/Vol] 170 mg/dL 74-106 [facility] Comment on above: Fasting Glucose resu lt greater than or equal to 126 mg/dL suggests DIABETES MELLITUS per A.D.A. criteria. Neutrophils (Bld) [#/Vol] 4.1 10*3/uL 2.0-7.7 [facility] Neutrophils/100 WBC (Bld) 58.2 % 47-70 [facility] Potassium [Moles/Vol] 4.0 mmol/L 3.5-5.1 [facility] Protein [Mass/Vol] 7.1 g/dL 6.4-8.2 [facility] Sodium [Moles/Vol] 140 mmol/L 136-145 [facility] WBC (Bld) [#/Vol] 7.1 10*3/uL 4.4-11.0 [facility] Blood erythrocytes count (nu mber/volume)Ordered By: Dr. Olguin on 07-13-2022 RBC (Bld) [#/Vol] 4.11 10*6/uL 4.6-6.2 [facility] Blood hemoglobin measurement (mass/volume)Ordered By: Dr. Olguin on 07-13-2022 Hemoglobin (Bld) [Mass/Vol] 12.8 g/dL 13.0-16.5 [facility] Blood lymphocytes/100 leukoc ytesOrdered By: Dr. Olguin on 07-13-2022 Lymphocytes/100 WBC (Bld) 31.6 % 19-41 [facility] Blood monocytes/100 leukocyt esOrdered By: Dr. Olguin on 07-13-2022 Monocytes/100 WBC (Bld) 7.7 % 0-10 [facility] Blood platelet adequacy dete ction by light microscopyOrdered By: Dr. Olguin on 07-13-2022 Platelets LM Ql (Bld) ADEQUATE ADEQ [facility] Blood platelet mean volumeOr dered By: Dr. Olguin on 07-13-2022 Platelet mean volume (Bld) [Entitic vol] 13.8 fL 6.2-12.0 [facility] Determination of erythrocyte mean corpuscular volume (MCV)Ordered By: Dr. Olguin on 07-13-2022 MCV (RBC) [Entitic vol] 95.1 fL 80-94 [facility] Hematocrit Auto (Bld) [Volum e fraction]Ordered By: Dr. Olguin on 07-13-2022 Hematocrit (Bld) [Volume fraction] 39.1 % 40-54 [facility] Laboratory - Chemistry and C hemistry - challengeOrdered By: Dr. Olguin on 07-13-2022 ALP [Catalytic activity/Vol] 72 U/L 45-117 [facility] ALT [Catalytic activity/Vol] 20 U/L 16-61 [facility] CO2 [Moles/Vol] 29.0 mmol/L 21.0-32.0 [facility] Globulin (S) [Mass/Vol] 3.7 g/dL 2.2-4.2 [facility] Urea nitrogen/Creatinine [Mass ratio] 27.6 mg/mg 10-20 [facility] Laboratory - Hematology and Cell countsOrdered By: Dr. Olguin on 07-13-2022 Erythrocyte distribution width (RBC) [Entitic vol] 50.1 fL 35.1-43.9 [facility] Erythrocyte distribution width (RBC) [Ratio] 14.4 % 11.6-14.6 [facility] Immature granulocytes/100 WBC (Bld) 0.400 % 0.0-0.9 [facility] Comment on above: IG% - Immature Granu locytes (promyelocytes, myelocytes and metamyelocytes) > 1% indicates that a LEFT SHIFT is Present. MCH (RBC) [Entitic mass] 31.1 pg 27.0-32.0 [facility] Nucleated RBC/100 WBC (Bld) [Ratio] 0.3 % 0-5 [facility] MCHC Auto (RBC) [Mass/Vol]Or dered By: Dr. Olguin on 07-13-2022 MCHC (RBC) [Mass/Vol] 32.7 g/dL 32-36 [facility] No Panel InformationOrdered By: Dr. Olguin on 07-13-2022 Estimated GFR (MDRD) Amer 110 mL/min >60 [facility] Comment on above: GFR Calc Estimated GFR (MDRD) Non-Af Amer 91 mL/min >60 [facility] Comment on above: Non- GFR Calc Platelets bldOrdered By: Dr. Olguin on 07-13-2022 Platelets (Bld) [#/Vol] 164 10*3/uL 150-450 [facility] RBC morphologyOrdered By: Dr Kris Olguin on 07-13-2022 RBC morphology finding Nom (Bld) NORM C+C NORMAL NORM C&C [facility] Serum or plasma albumin shewta urement (mass/volume)Ordered By: Dr. Olguin on 07-13-2022 Albumin [Mass/Vol] 3.4 g/dL 3.2-5.0 [facility] Serum or plasma albumin/glob ulin mass ratioOrdered By: Dr. Olguin on 07-13-2022 Albumin/Globulin [Mass ratio] 0.9 {ratio} 0.9-2.4 [facility] Serum or plasma calcium shweta urement (mass/volume)Ordered By: Dr. Olguin on 07-13-2022 Calcium [Mass/Vol] 9.3 mg/dL 8.5-10.1 [facility] Serum or plasma creatinine m easurement (mass/volume)Ordered By: Dr. Olguin on 07-13-2022 Creatinine [Mass/Vol] 0.87 mg/dL 0.70-1.30 [facility] Comment on above: The validity of the calculated GFR & GFRAA in patients over 70 years has not been determined. Clinical correlation is essential. Serum or plasma urea nitroge n measurement (mass/volume)Ordered By: Dr. Olguin on 07-13-2022 Urea nitrogen [Mass/Vol] 24 mg/dL 7-18 [facility] Thin prep Papanicolaou smear with manual screeningOrdered By: Dr. Olguin on 07-13-2022 Thin prep Papanicolaou smear with manual screening 17 U/L 15-37 [facility] Thin prep Papanicolaou smear with manual screening 7 5-15 [facility] Absolute lymphocyte countOrd ered By: Dr. Olguin on 03-30-2022 Lymphocytes Auto (Unsp spec) [#/Vol] 1.77 10*3/uL 0.83-4.51 [facility] Basophil percentageOrdered B y: Dr. Olguin on 03-30-2022 Basophils/100 WBC (Bld) 0.4 % 0-1 [facility] Bilirubin [Mass/Vol] 0.60 mg/dL 0.20-1.00 [facility] Comment on above: For patients on eltr ombopag therapy, use of Dimension [place] TBIL is not recommended. Chloride [Moles/Vol] 107 mmol/L 98-107 [facility] Eosinophils/100 WBC (Bld) 2.6 % 0-5 [facility] Glucose [Mass/Vol] 116 mg/dL 74-106 [facility] Comment on above: Fasting Glucose resu lt from 100 to 125 mg/dL suggests IMPAIRED HOMEOSTASIS per A.D.A. criteria. Neutrophils (Bld) [#/Vol] 2.9 10*3/uL 2.0-7.7 [facility] Neutrophils/100 WBC (Bld) 54.1 % 47-70 [facility] Potassium [Moles/Vol] 3.7 mmol/L 3.5-5.1 [facility] Protein [Mass/Vol] 7.1 g/dL 6.4-8.2 [facility] Sodium [Moles/Vol] 141 mmol/L 136-145 [facility] WBC (Bld) [#/Vol] 5.3 10*3/uL 4.4-11.0 [facility] Blood erythrocytes count (nu mber/volume)Ordered By: Dr. Olguin on 03-30-2022 RBC (Bld) [#/Vol] 4.07 10*6/uL 4.6-6.2 [facility] Blood hemoglobin measurement (mass/volume)Ordered By: Dr. Olguin on 03-30-2022 Hemoglobin (Bld) [Mass/Vol] 13.0 g/dL 13.0-16.5 [facility] Blood lymphocytes/100 leukoc ytesOrdered By: Dr. Olguin on 03-30-2022 Lymphocytes/100 WBC (Bld) 33.1 % 19-41 [facility] Blood monocytes/100 leukocyt esOrdered By: Dr. Olguin on 03-30-2022 Monocytes/100 WBC (Bld) 9.2 % 0-10 [facility] Blood platelet adequacy dete ction by light microscopyOrdered By: Dr. Olguin on 03-30-2022 Platelets LM Ql (Bld) ADEQUATE ADEQ [facility] Blood platelet morphology de termination (nominal result)Ordered By: Dr. Olguin on 03-30-2022 Platelet morphology finding Nom (Bld) CLUMPED [facility] Determination of erythrocyte mean corpuscular volume (MCV)Ordered By: Dr. Olguin on 03-30-2022 MCV (RBC) [Entitic vol] 97.1 fL 80-94 [facility] Hematocrit Auto (Bld) [Volum e fraction]Ordered By: Dr. Olguin on 03-30-2022 Hematocrit (Bld) [Volume fraction] 39.5 % 40-54 [facility] Laboratory - Chemistry and C hemistry - challengeOrdered By: Dr. Olguin on 03-30-2022 ALP [Catalytic activity/Vol] 72 U/L 45-117 [facility] ALT [Catalytic activity/Vol] 21 U/L 16-61 [facility] CO2 [Moles/Vol] 29.0 mmol/L 21.0-32.0 [facility] Globulin (S) [Mass/Vol] 3.9 g/dL 2.2-4.2 [facility] Urea nitrogen/Creatinine [Mass ratio] 19.4 mg/mg 10-20 [facility] Laboratory - Hematology and Cell countsOrdered By: Dr. Olguin on 03-30-2022 Erythrocyte distribution width (RBC) [Entitic vol] 49.4 fL 35.1-43.9 [facility] Erythrocyte distribution width (RBC) [Ratio] 13.9 % 11.6-14.6 [facility] Immature granulocytes/100 WBC (Bld) 0.600 % 0.0-0.9 [facility] Comment on above: IG% - Immature Granu locytes (promyelocytes, myelocytes and metamyelocytes) > 1% indicates that a LEFT SHIFT is Present. MCH (RBC) [Entitic mass] 31.9 pg 27.0-32.0 [facility] Nucleated RBC/100 WBC (Bld) [Ratio] 0 % 0-5 [facility] MCHC Auto (RBC) [Mass/Vol]Or dered By: Dr. Olguin on 03-30-2022 MCHC (RBC) [Mass/Vol] 32.9 g/dL 32-36 [facility] No Panel InformationOrdered By: Dr. Olguin on 03-30-2022 Estimated GFR (MDRD) Amer 117 mL/min >60 [facility] Comment on above: GFR Calc Estimated GFR (MDRD) Non-Af Amer 97 mL/min >60 [facility] Comment on above: Non- GFR Calc Platelets bldOrdered By: Dr. Olguin on 03-30-2022 Platelets (Bld) [#/Vol] See comment 150-450 [facility] Comment on above: Please note: For thi [...] Albumin [Mass/Vol] 3.2 g/dL 3.2-5.0 [facility] Serum or plasma albumin/glob ulin mass ratioOrdered By: Dr. Olguin on 03-30-2022 Albumin/Globulin [Mass ratio] 0.8 {ratio} 0.9-2.4 [facility] Serum or plasma calcium shweta urement (mass/volume)Ordered By: Dr. Olguin on 03-30-2022 Calcium [Mass/Vol] 9.3 mg/dL 8.5-10.1 [facility] Serum or plasma creatinine m easurement (mass/volume)Ordered By: Dr. Olguin on 03-30-2022 Creatinine [Mass/Vol] 0.83 mg/dL 0.70-1.30 [facility] Comment on above: The validity of the calculated GFR & GFRAA in patients over 70 years has not been determined. Clinical correlation is essential. Serum or plasma urea nitroge n measurement (mass/volume)Ordered By: Dr. Olguin on 03-30-2022 Urea nitrogen [Mass/Vol] 16 mg/dL 7-18 [facility] Thin prep Papanicolaou smear with manual screeningOrdered By: Dr. Olguin on 03-30-2022 Thin prep Papanicolaou smear with manual screening 15 U/L 15-37 [facility] Thin prep Papanicolaou smear with manual screening 5 5-15 [facility] Whole blood hemoglobin A1c/t otal hemoglobin ratio (mass fraction)Ordered By: Dr. Olguin on 03-30-2022 HbA1c (Bld) [Mass fraction] 6.2 % 3.8-5.6 [facility] Comment on above: Normal < 5.7 % Predi abetic 5.7 - 6.4 % Diabetic >or= 6.5 % Please note range changes. Glucose Glucometer (BldC) [M ass/Vol]on 01-05-2022 Glucose [Mass/Vol] 162 mg/dL 74-106 [facility] Work Phone: Comment on above: MANAGEMENT OF PATIEN T CARE PER NURSING PROTOCOL Absolute lymphocyte counton 10-03-2021 Lymphocytes Auto (Unsp spec) [#/Vol] 1.66 10*3/uL 0.83-4.51 [facility] Work Phone: Basophil percentageon 2021 Basophils/100 WBC (Bld) 0.4 % 0-1 [facility] Work Phone: Bilirubin [Mass/Vol] 0.40 mg/dL 0.20-1.00 [facility] Work Phone: Comment on above: For patients on eltr ombopag therapy, use of Dimension [place] TBIL is not recommended. Chloride [Moles/Vol] 106 mmol/L 98-107 [facility] Work Phone: Eosinophils/100 WBC (Bld) 2.1 % 0-5 [facility] Work Phone: Glucose [Mass/Vol] 125 mg/dL 74-106 [facility] Work Phone: Comment on above: Fasting Glucose resu lt from 100 to 125 mg/dL suggests IMPAIRED HOMEOSTASIS per A.D.A. criteria. Neutrophils (Bld) [#/Vol] 3.3 10*3/uL 2.0-7.7 [facility] Work Phone: [phone] Neutrophils/100 WBC (Bld) 58.4 % 47-70 [facility] Work Phone: Potassium [Moles/Vol] 3.8 mmol/L 3.5-5.1 [facility] Work Phone: [phone] Protein [Mass/Vol] 7.0 g/dL 6.4-8.2 [facility] Work Phone: [phone] Sodium [Moles/Vol] 139 mmol/L 136-145 [facility] Work Phone: WBC (Bld) [#/Vol] 5.6 10*3/uL 4.4-11.0 [facility] Work Phone: Blood erythrocytes count (nu mber/volume)on 10-03-2021 RBC (Bld) [#/Vol] 4.05 10*6/uL 4.6-6.2 [facility] Work Phone: Blood hemoglobin measurement (mass/volume)on 10-03-2021 Hemoglobin (Bld) [Mass/Vol] 12.7 g/dL 13.0-16.5 [facility] Work Phone: [phone] Blood lymphocytes/100 leukoc yteson 10-03-2021 Lymphocytes/100 WBC (Bld) 29.5 % 19-41 [facility] Work Phone: Blood monocytes/100 leukocyt eson 10-03-2021 Monocytes/100 WBC (Bld) 9.1 % 0-10 [facility] Work Phone: Blood platelet adequacy dete ction by light microscopyon 10-03-2021 Platelets LM Ql (Bld) ADEQUATE ADEQ [facility] Work Phone: Blood platelet mean volumeon 10-03-2021 Platelet mean volume (Bld) [Entitic vol] 14.2 fL 6.2-12.0 [facility] Work Phone: Determination of erythrocyte mean corpuscular volume (MCV)on 10-03-2021 MCV (RBC) [Entitic vol] 96.8 fL 80-94 [facility] Work Phone: Hematocrit Auto (Bld) [Volum e fraction]on 10-03-2021 Hematocrit (Bld) [Volume fraction] 39.2 % 40-54 [facility] Work Phone: Laboratory - Chemistry and C hemistry - challengeon 10-03-2021 ALP [Catalytic activity/Vol] 66 U/L 45-117 [facility] Work Phone: ALT [Catalytic activity/Vol] 23 U/L 16-61 [facility] Work Phone: CO2 [Moles/Vol] 27.0 mmol/L 21.0-32.0 [facility] Work Phone: Globulin (S) [Mass/Vol] 4.1 g/dL 2.2-4.2 [facility] Work Phone: Urea nitrogen/Creatinine [Mass ratio] 19.3 mg/mg 10-20 [facility] Work Phone: Laboratory - Hematology and Cell countson 10-03-2021 Erythrocyte distribution width (RBC) [Entitic vol] 51.3 fL 35.1-43.9 [facility] Work Phone: Erythrocyte distribution width (RBC) [Ratio] 14.4 % 11.6-14.6 [facility] Work Phone: Immature granulocytes/100 WBC (Bld) 0.500 % 0.0-0.9 [facility] Work Phone: Comment on above: IG% - Immature Granu locytes (promyelocytes, myelocytes and metamyelocytes) > 1% indicates that a LEFT SHIFT is Present. MCH (RBC) [Entitic mass] 31.4 pg 27.0-32.0 [facility] Work Phone: Nucleated RBC/100 WBC (Bld) [Ratio] 0 % 0-5 [facility] Work Phone: MCHC Auto (RBC) [Mass/Vol]on 10-03-2021 MCHC (RBC) [Mass/Vol] 32.4 g/dL 32-36 [facility] Work Phone: No Panel Informationon 10-03 Estimated GFR (MDRD) Amer 109 mL/min >60 [facility] Work Phone: Comment on above: GFR Calc Estimated GFR (MDRD) Non-Af Amer 90 mL/min >60 [facility] Work Phone: Comment on above: Non- GFR Calc Platelets bldon 10-03-2021 Platelets (Bld) [#/Vol] See comment 150-450 [facility] Work Phone: Comment on above: Please note: [...] (mass/volume)on 10-03-2021 CRP [Mass/Vol] 6.39 mg/L 0.0-3.0 [facility] Work Phone: Comment on above: C-Reactive Protein ( CRP) provides useful information for thediagnosis, therapy and monitoring of inflammatory processesand associated diseases. For the evaluation of Relative Riskfor Cardiovascular Disease, a High Sensitivity CRP (HSCRP)should be ordered. Serum or plasma albumin shweta urement (mass/volume)on 10-03-2021 Albumin [Mass/Vol] 2.9 g/dL 3.2-5.0 [facility] Work Phone: Serum or plasma albumin/glob ulin mass ratioon 10-03-2021 Albumin/Globulin [Mass ratio] 0.7 {ratio} 0.9-2.4 [facility] Work Phone: Serum or plasma calcium shweta urement (mass/volume)on 10-03-2021 Calcium [Mass/Vol] 8.3 mg/dL 8.5-10.1 [facility] Work Phone: Serum or plasma creatinine m easurement (mass/volume)on 10-03-2021 Creatinine [Mass/Vol] 0.88 mg/dL 0.70-1.30 [facility] Work Phone: Comment on above: The validity of the calculated GFR & GFRAA in patients over 70 years has not been determined. Clinical correlation is essential. Serum or plasma urea nitroge n measurement (mass/volume)on 10-03-2021 Urea nitrogen [Mass/Vol] 17 mg/dL 7-18 [facility] Work Phone: Thin prep Papanicolaou smear with manual screeningon 10-03-2021 Thin prep Papanicolaou smear with manual screening 15 U/L 15-37 [facility] Work Phone: Thin prep Papanicolaou smear with manual screening 6 5-15 [facility] Work Phone: Whole blood hemoglobin A1c/t otal hemoglobin ratio (mass fraction)on 10-03-2021 HbA1c (Bld) [Mass fraction] 5.3 % 3.8-5.6 [facility] Work Phone: Comment on above: Normal < 5.7 % Predi abetic 5.7 - 6.4 % Diabetic >or= 6.5 % Please note range changes. No Panel Informationon 07-04 Urine Microalbumin/Creatinin e Ratio 10.0 mg/g CRE <30 [facility] Work Phone: Thin prep Papanicolaou smear with manual screeningon 07-04-2021 Thin prep Papanicolaou smear with manual screening 20.5 mg/L NO RANGE EST. [facility] Work Phone: Urine creatinine measurement (mass/volume)on 07-04-2021 Creatinine (U) [Mass/Vol] 204.00 mg/dL NO RANGE EST. [facility] Work Phone: [phone] Absolute lymphocyte counton 07-03-2021 Lymphocytes Auto (Unsp spec) [#/Vol] 1.81 10*3/uL 0.83-4.51 [facility] Work Phone: [phone] Basophil percentageon 2021 Basophils/100 WBC (Bld) 0.4 % 0-1 [facility] Work Phone: Bilirubin [Mass/Vol] 0.50 mg/dL 0.20-1.00 [facility] Work Phone: Comment on above: For patients on eltr ombopag therapy, use of Dimension [place] TBIL is not recommended. Chloride [Moles/Vol] 107 mmol/L 98-107 [facility] Work Phone: Eosinophils/100 WBC (Bld) 2.4 % 0-5 [facility] Work Phone: [phone] Glucose [Mass/Vol] 192 mg/dL 74-106 [facility] Work Phone: Comment on above: Fasting Glucose resu lt greater than or equal to 126 mg/dL suggests DIABETES MELLITUS per A.D.A. criteria. Neutrophils (Bld) [#/Vol] 2.9 10*3/uL 2.0-7.7 [facility] Work Phone: Neutrophils/100 WBC (Bld) 52.6 % 47-70 [facility] Work Phone: Potassium [Moles/Vol] 3.6 mmol/L 3.5-5.1 [facility] Work Phone: Protein [Mass/Vol] 6.9 g/dL 6.4-8.2 [facility] Work Phone: Sodium [Moles/Vol] 139 mmol/L 136-145 [facility] Work Phone: WBC (Bld) [#/Vol] 5.5 10*3/uL 4.4-11.0 [facility] Work Phone: Blood erythrocytes count (nu mber/volume)on 07-03-2021 RBC (Bld) [#/Vol] 4.14 10*6/uL 4.6-6.2 [facility] Work Phone: Blood hemoglobin measurement (mass/volume)on 07-03-2021 Hemoglobin (Bld) [Mass/Vol] 12.2 g/dL 13.0-16.5 [facility] Work Phone: Blood lymphocytes/100 leukoc yteson 07-03-2021 Lymphocytes/100 WBC (Bld) 33.2 % 19-41 [facility] Work Phone: Blood monocytes/100 leukocyt eson 07-03-2021 Monocytes/100 WBC (Bld) 10.8 % 0-10 [facility] Work Phone: Blood platelet mean volumeon 07-03-2021 Platelet mean volume (Bld) [Entitic vol] 13.6 fL 6.2-12.0 [facility] Work Phone: Determination of erythrocyte mean corpuscular volume (MCV)on 07-03-2021 MCV (RBC) [Entitic vol] 94.4 fL 80-94 [facility] Work Phone: Hematocrit Auto (Bld) [Volum e fraction]on 07-03-2021 Hematocrit (Bld) [Volume fraction] 39.1 % 40-54 [facility] Work Phone: Laboratory - Chemistry and C hemistry - challengeon 07-03-2021 ALP [Catalytic activity/Vol] 76 U/L 45-117 [facility] Work Phone: ALT [Catalytic activity/Vol] 19 U/L 16-61 [facility] Work Phone: CO2 [Moles/Vol] 28.0 mmol/L 21.0-32.0 [facility] Work Phone: Globulin (S) [Mass/Vol] 4.1 g/dL 2.2-4.2 [facility] Work Phone: Urea nitrogen/Creatinine [Mass ratio] 19.3 mg/mg 10-20 [facility] Work Phone: Laboratory - Hematology and Cell countson 07-03-2021 Erythrocyte distribution width (RBC) [Entitic vol] 49.1 fL 35.1-43.9 [facility] Work Phone: Erythrocyte distribution width (RBC) [Ratio] 14.4 % 11.6-14.6 [facility] Work Phone: Immature granulocytes/100 WBC (Bld) 0.600 % 0.0-0.9 [facility] Work Phone: Comment on above: IG% - Immature Granu locytes (promyelocytes, myelocytes and metamyelocytes) > 1% indicates that a LEFT SHIFT is Present. MCH (RBC) [Entitic mass] 29.5 pg 27.0-32.0 [facility] Work Phone: Nucleated RBC/100 WBC (Bld) [Ratio] 0 % 0-5 [facility] Work Phone: MCHC Auto (RBC) [Mass/Vol]on 07-03-2021 MCHC (RBC) [Mass/Vol] 31.2 g/dL 32-36 [facility] Work Phone: No Panel Informationon 07-03 Estimated GFR (MDRD) Amer 109 mL/min >60 [facility] Work Phone: Comment on above: GFR Calc Estimated GFR (MDRD) Non-Af Amer 90 mL/min >60 [facility] Work Phone: Comment on above: Non- GFR Calc Thyroid Stimulating Hormone (TSH) 0.02 uIU/mL 0.358-3.74 [facility] Work Phone: Platelets bldon 07-03-2021 Platelets (Bld) [#/Vol] 214 10*3/uL 150-450 [facility] Work Phone: Serum or plasma albumin shweta urement (mass/volume)on 07-03-2021 Albumin [Mass/Vol] 2.8 g/dL 3.2-5.0 [facility] Work Phone: Serum or plasma albumin/glob ulin mass ratioon 07-03-2021 Albumin/Globulin [Mass ratio] 0.7 {ratio} 0.9-2.4 [facility] Work Phone: Serum or plasma calcium shweta urement (mass/volume)on 07-03-2021 Calcium [Mass/Vol] 8.4 mg/dL 8.5-10.1 [facility] Work Phone: Serum or plasma creatinine m easurement (mass/volume)on 07-03-2021 Creatinine [Mass/Vol] 0.88 mg/dL 0.70-1.30 [facility] Work Phone: Comment on above: The validity of the calculated GFR & GFRAA in patients over 70 years has not been determined. Clinical correlation is essential. Serum or plasma urea nitroge n measurement (mass/volume)on 07-03-2021 Urea nitrogen [Mass/Vol] 17 mg/dL 7-18 [facility] Work Phone: Thin prep Papanicolaou smear with manual screeningon 07-03-2021 Thin prep Papanicolaou smear with manual screening 19 U/L 15-37 [facility] Work Phone: Thin prep Papanicolaou smear with manual screening 4 5-15 [facility] Work Phone: Whole blood hemoglobin A1c/t otal hemoglobin ratio (mass fraction)on 07-03-2021 HbA1c (Bld) [Mass fraction] 5.8 % 3.8-5.6 [facility] Work Phone: Comment on above: Normal < [...] LEVOFLOXACIN 0.5 S MEROPENEM <0.06 S Normal [facility] Comment on above: Performed By: #### M [id number], [id number] #### [facility] [address] [place] [address] GRAM STAINon 01-29-2021 Microscopic observation Gram stain Nom (Unsp spec) GRAM STAIN NO WBC'S SEEN MANY GRAM POSITIVE COCCI RARE GRAM NEGATIVE COCCI Normal [facility] Comment on above: Performed By: #### M [id number], [id number] #### [facility] [address] [place] [address] NM MYOCARDIAL SPECT STRESS/R ESTon 06-10-2018 NM [...] PM Sign Date: 06/10/2018 12:18:54 PM Normal [facility] ([place]) Bacteria identified Cx Nom ( Wound) Wound Culture Erysipelothrix rhusiopathiae [facility] Work Phone: Wound Culture Actinomyces odontolyticus [facility] Work Phone: Gram stain for investigation of transfusion reaction Microscopic observation Gram stain Nom (Unsp spec) [facility] Work Phone: Vital Signs Date Time Vital Sign Value Performing Clinician Facility 12-25-2024 08:33-0400 Body mass index (BMI) [Ratio] 26.4 kg/m2 Dr. Jessi Olguin MD Work Phone: [facility] 12-25-2024 08:33-0400 Body temperature 97.4 [degF] Dr. Jessi Olguin MD Work Phone: 7(989)105-084781 [address] 12-25-2024 08:33-0400 Body weight 98.[address] Jessi Olguin MD Work Phone: [facility] 12-25-2024 08:33-0400 Diastolic blood pressure 62 mm[Hg] Dr. Jessi Olguin MD Work Phone: [facility] 12-25-2024 08:33-0400 Heart rate 70 /min Dr. Jessi Olguin MD Work Phone: 8(870)800-651581 [address] 12-25-2024 08:33-0400 Respiratory rate 16 /min Dr. Jessi Olguin MD Work Phone: [facility] 12-25-2024 08:33-0400 SaO2% (BldA) [Mass fraction] 97 % Dr. Jessi Olguin MD Work Phone: [facility] 12-25-2024 08:33-0400 Systolic blood pressure 99 mm[Hg] Dr. Jessi Olguin MD Work Phone: [facility] 12-01-2024 08:47-0400 Body height 193.[address] Jessi Olguin MD Work Phone: 1(323)617-287674 [place] [address] 12-01-2024 08:47-0400 Body mass index (BMI) [Ratio] 28 kg/m2 Dr. Jessi Olguin MD Work Phone: 7(205)829-617374 [place] [address] 12-01-2024 08:47-0400 Body weight 104.[address] Jessi Olguin MD Work Phone: 1(671)603-447674 [place] [address] 12-01-2024 08:47-0400 Diastolic blood pressure 47 mm[Hg] Dr. Jessi Olguin MD Work Phone: 5(124)483-475174 [place] [address] 12-01-2024 08:47-0400 Heart rate 69 /min Dr. Jessi Olguin MD Work Phone: 8(221)468-195974 [place] [address] 12-01-2024 08:47-0400 Respiratory rate 16 /min Dr. Jessi Olguin MD Work Phone: 4(881)912-153074 [place] [address] 12-01-2024 08:47-0400 Systolic blood pressure 82 mm[Hg] Dr. Jessi Olguin MD Work Phone: 5(162)372-488774 [place] [address] 11-18-2024 13:01-0400 Diastolic blood pressure 64 mm[Hg] Dr. Jessi Olguin MD Work Phone: 8(409)729-274674 [place] [address] 11-18-2024 13:01-0400 Heart rate 77 /min Dr. Jessi Olguin MD Work Phone: 4(476)958-272074 [place] [address] 11-18-2024 13:01-0400 SaO2% (BldA) [Mass fraction] 97 % Dr. Jessi Olguin MD Work Phone: 0(451)554-389674 [place] [address] 11-18-2024 13:01-0400 Systolic blood pressure 92 mm[Hg] Dr. Jessi Olguin MD Work Phone: 8(503)463-958874 [place] [address] 11-18-2024 08:20-0400 Body temperature 98.1 [degF] Dr. Jessi Olguin MD Work Phone: 7(860)125-628274 [place] [address] 11-18-2024 08:20-0400 Respiratory rate 20 /min Dr. Jessi Olguin MD Work Phone: 5(409)347-909574 [place] [address] 11-14-2024 13:33-0400 Body height 193.[address] Jessi Olguin MD Work Phone: 5(215)758-247574 [place] [address] 11-14-2024 13:33-0400 Body mass index (BMI) [Ratio] 27.1 kg/m2 Dr. Jessi Olguin MD Work Phone: 7(746)299-409774 [place] [address] 11-14-2024 13:33-0400 Body weight 100.[address] Jessi Olguin MD Work Phone: 6(398)353-685774 [place] [address] 11-10-2024 07:26-0400 Body mass index (BMI) [Ratio] 28.7 kg/m2 Dr. Jessi Olguin MD Work Phone: 2(308)739-047274 [place] [address] 11-10-2024 07:26-0400 Body temperature 97.3 [degF] Dr. Jessi Olguin MD Work Phone: 5(075)932-958274 [place] [address] 11-10-2024 07:26-0400 Body weight 104.[address] Jessi Olguin MD Work Phone: 7(044)958-512074 [place] [address] 11-10-2024 07:26-0400 Diastolic blood pressure 64 mm[Hg] Dr. Jessi Olguin MD Work Phone: 2(219)442-829674 [place] [address] 11-10-2024 07:26-0400 Heart rate 73 /min Dr. Jessi Olguin MD Work Phone: 3(673)941-559274 [place] [address] 11-10-2024 07:26-0400 Respiratory rate 18 /min Dr. Jessi Olguin MD Work Phone: 1(927)525-024374 [place] [address] 11-10-2024 07:26-0400 SaO2% (BldA) [Mass fraction] 96 % Dr. Jessi Olguin MD Work Phone: 7(507)947-966374 [place] [address] 11-10-2024 07:26-0400 Systolic blood pressure 106 mm[Hg] Dr. Jessi Olguin MD Work Phone: 4(977)174-586274 [place] [address] 09-21-2024 17:42-0400 Body temperature 97.8 [degF] Dr. Jessi Olguin MD Work Phone: 8(989)120-641074 [place] [address] 09-21-2024 17:42-0400 Diastolic blood pressure 59 mm[Hg] Dr. Jessi Olguin MD Work Phone: [facility] 09-21-2024 17:42-0400 Heart rate 71 /min Dr. Jessi Olguin MD Work Phone: [facility] 09-21-2024 17:42-0400 Respiratory rate 18 /min Dr. Jessi Olguin MD Work Phone: 3(232)133-987891 [place] [address] 09-21-2024 17:42-0400 SaO2% (BldA) [Mass fraction] 93 % Dr. Jessi Olguin MD Work Phone: 6(576)338-707991 [place] [address] 09-21-2024 17:42-0400 Systolic blood pressure 116 mm[Hg] Dr. Jessi Olguin MD Work Phone: 1(391)792-558791 [place] [address] 09-21-2024 14:33-0400 Body height 190.[address] Jessi Olguin MD Work Phone: 9(762)694-889691 [place] [address] 09-03-2024 09:14-0400 Heart rate 88 /min Dr. Jessi Olguin MD Work Phone: 9(210)633-543081 [address] 09-03-2024 09:07-0400 Body temperature 98.2 [degF] Dr. Jessi Olguin MD Work Phone: [facility] 09-03-2024 09:07-0400 Diastolic blood pressure 74 mm[Hg] Dr. Jessi Olguin MD Work Phone: 8(827)280-972691 [place] [address] 09-03-2024 09:07-0400 Respiratory rate 15 /min Dr. Jessi Olguin MD Work Phone: [facility] 09-03-2024 09:07-0400 SaO2% (BldA) [Mass fraction] 95 % Dr. Jessi Olguin MD Work Phone: [facility] 09-03-2024 09:07-0400 Systolic blood pressure 105 mm[Hg] Dr. Jessi Olguin MD Work Phone: 7(944)433-396591 [place] [address] 09-03-2024 05:21-0400 Body mass index (BMI) [Ratio] 29 kg/m2 Dr. Jessi Olguin MD Work Phone: 8(768)869-489791 [place] [address] 09-03-2024 05:21-0400 Body weight 105.[address] Jessi Olguin MD Work Phone: 6(489)914-665274 [place] [address] 09-02-2024 19:15-0400 Inhaled oxygen flow rate 3 L/min Dr. Jessi Olguin MD Work Phone: 4(476)006-144474 [place] [address] 09-02-2024 09:42-0400 Body height 190.[address] Jessi Olguin MD Work Phone: 9(658)383-773174 [place] [address] 09-01-2024 21:51-0400 Body temperature 97.6 [degF] Dr. Jessi Olguin MD Work Phone: 4(331)180-593374 [place] [address] 09-01-2024 21:51-0400 Diastolic blood pressure 80 mm[Hg] Dr. Jessi Olguin MD Work Phone: 7(890)200-390074 [place] [address] 09-01-2024 21:51-0400 Heart rate 71 /min Dr. Jessi Olguin MD Work Phone: 9(930)199-898274 [place] [address] 09-01-2024 21:51-0400 Respiratory rate 20 /min Dr. Jessi Olguin MD Work Phone: 8(406)290-791674 [place] [address] 09-01-2024 21:51-0400 SaO2% (BldA) [Mass fraction] 99 % Dr. Jessi Olguin MD Work Phone: 4(137)205-354574 [place] [address] 09-01-2024 21:51-0400 Systolic blood pressure 98 mm[Hg] Dr. Jessi Olguin MD Work Phone: 2(100)919-274374 [place] [address] 09-01-2024 18:00-0400 Inhaled oxygen flow rate 2 L/min Dr. Jessi Olguin MD Work Phone: 3(433)363-863174 [place] [address] 09-01-2024 16:42-0400 Body height 190.[address] Jessi Olguin MD Work Phone: 8(355)552-606874 [place] [address] 09-01-2024 16:42-0400 Body mass index (BMI) [Ratio] 30 kg/m2 Dr. Jessi Olguin MD Work Phone: [facility] 09-01-2024 16:42-0400 Body weight [address] Jessi Olguin MD Work Phone: [facility] 09-01-2024 07:55-0400 Body mass index (BMI) [Ratio] 29.1 kg/m2 Dr. Jessi Olguin MD Work Phone: [facility] 09-01-2024 07:55-0400 Body weight 105.[address] Jessi Olguin MD Work Phone: 5(237)457-167391 [place] [address] 09-01-2024 07:55-0400 Diastolic blood pressure 44 mm[Hg] Dr. Jessi Olguin MD Work Phone: 8(303)307-439181 [address] 09-01-2024 07:55-0400 Heart rate 78 /min Dr. Jessi Olguin MD Work Phone: 7(817)831-934681 [address] 09-01-2024 07:55-0400 Respiratory rate 18 /min Dr. Jessi Olguin MD Work Phone: 0(479)487-138791 [place] [address] 09-01-2024 07:55-0400 Systolic blood pressure 79 mm[Hg] Dr. Jessi Olguin MD Work Phone: [facility] 08-03-2024 07:53-0500 Body temperature 97.4 [degF] Dr. Jessi Olguin MD Work Phone: 5(082)748-960491 [place] [address] 08-03-2024 07:53-0500 Diastolic blood pressure 73 mm[Hg] Dr. Jessi Olguin MD Work Phone: [facility] 08-03-2024 07:53-0500 Heart rate 70 /min Dr. Jessi Olguin MD Work Phone: [facility] 08-03-2024 07:53-0500 Respiratory rate 16 /min Dr. Jessi Olguin MD Work Phone: [facility] 08-03-2024 07:53-0500 SaO2% (BldA) [Mass fraction] 96 % Dr. Jessi Olguin MD Work Phone: [facility] 08-03-2024 07:53-0500 Systolic blood pressure 116 mm[Hg] Dr. Jessi Olguin MD Work Phone: 3(006)006-597091 [place] [address] 07-07-2024 04:23-0500 Body temperature 98.2 [degF] Dr. Jessi Olguin MD Work Phone: 2(099)005-048874 [place] [address] 07-07-2024 04:23-0500 Diastolic blood pressure 81 mm[Hg] Dr. Jessi Olguin MD Work Phone: 7(430)283-368581 [address] 07-07-2024 04:23-0500 Heart rate 70 /min Dr. Jessi Olguin MD Work Phone: 1(585)516-519474 [place] [address] 07-07-2024 04:23-0500 Respiratory rate 20 /min Dr. Jessi Olguin MD Work Phone: 3(823)[phone] [place] [address] 07-07-2024 04:23-0500 SaO2% (BldA) [Mass fraction] 95 % Dr. Jessi Olguin MD Work Phone: 2(105)[phone] [place] [address] 07-07-2024 04:23-0500 Systolic blood pressure 124 mm[Hg] Dr. Jessi Olguin MD Work Phone: 1(470)[phone] [address] 07-07-2024 02:06-0500 Inhaled oxygen flow rate 2 L/min Dr. Jessi Olguin MD Work Phone: 8(480)443-109674 [place] [address] 07-07-2024 01:54-0500 Body mass index (BMI) [Ratio] 31.1 kg/m2 Dr. Jessi Olguin MD Work Phone: 2(632)402-254091 [place] [address] 07-07-2024 01:54-0500 Body weight 113.[address] Jessi Olguin MD Work Phone: 5(993)601-030191 [place] [address] 07-01-2024 11:10-0500 Heart rate 70 /min DR SEDRICK ALEXANDER MD [facility] 07-01-2024 11:10-0500 Reason For Taking VItal Signs DR SEDRICK ALEXANDER MD [facility] 07-01-2024 10:55-0500 Heart rate 71 /min DR SEDRICK ALEXANDER MD [address] 07-01-2024 10:55-0500 Respiratory rate 18 /min DR SEDRICK ALEXANDER MD [address] 07-01-2024 10:52-0500 systolic 109 mm[Hg] DR SEDRICK ALEXANDER MD [address] 07-01-2024 10:50-0500 Heart rate 71 /min DR SEDRICK ALEXANDER MD [address] 07-01-2024 10:50-0500 Blood Pressure Cuff Size DR SEDRICK ALEXANDER MD [address] [place] [address] 07-01-2024 10:50-[address] SEDRICK ALEXANDER MD [address] [place] [address] 07-01-2024 10:50-[address] SEDRICK ALEXANDER MD [address] [place] [address] 07-01-2024 10:50-0500 Body temperature 98.42 [degF] DR SEDRICK ALEXANDER MD [address] [place] [address] 07-01-2024 10:50-0500 Diastolic Blood Pressure Non-Invasive 68 mm[Hg] DR SEDRICK ALEXANDER MD [address] [place] [address] 07-01-2024 10:50-0500 Reason For Taking VItal Signs DR SEDRICK ALEXANDER MD [address] 07-01-2024 10:50-0500 Respiratory rate 18 /min DR SEDRICK ALEXANDER MD [address] 07-01-2024 10:50-0500 Systolic Blood Pressure Non-Invasive 128 mm[Hg] DR SEDRICK ALEXANDER MD [address] [place] [address] 07-01-2024 08:37-0500 Heart rate 70 /min DR SEDRICK ALEXANDER MD [address] 07-01-2024 08:06-0500 Heart rate 78 /min DR SEDRICK ALEXANDER MD [address] 07-01-2024 08:06-0500 Reason For Taking VItal Signs DR SEDRICK ALEXANDER MD [address] [place] [address] 07-01-2024 07:02-0500 Heart rate 71 /min DR SEDRICK ALEXANDER MD [address] [place] [address] 07-01-2024 07:02-0500 Respiratory rate 18 /min DR SEDRICK ALEXANDER MD [address] [place] [address] 07-01-2024 06:38-05[address] Blood Pressure Cuff Size DR SEDRICK ALEXANDER MD [address] [place] [address] 07-01-2024 06:38-[address] SEDRICK ALEXANDER MD [address] [place] [address] 07-01-2024 06:38-[address] SEDRICK ALEXANDER MD [address] [place] [address] 07-01-2024 06:38-0500 Body temperature 98.42 [degF] DR SEDRICK ALEXANDER MD [address] [place] [address] 07-01-2024 06:38-0500 Diastolic Blood Pressure Non-Invasive 64 mm[Hg] DR SEDRICK ALEXANDER MD [address] [place] [address] 07-01-2024 06:38-0500 Mean blood pressure 92 mm[Hg] DR SEDRICK ALEXANDER MD [address] [place] [address] 07-01-2024 06:38-0500 Systolic Blood Pressure Non-Invasive 146 mm[Hg] DR SEDRICK ALEXANDER MD [address] [place] [address] 07-01-2024 02:25-0500 diastolic 66 mm[Hg] DR SEDRICK ALEXANDER MD [address] [place] [address] 07-01-2024 02:25-0500 Mean blood pressure 76 mm[Hg] DR SEDRICK ALEXANDER MD [address] [place] [address] 07-01-2024 00:00-0500 Mean blood pressure 67 mm[Hg] DR SEDRICK ALEXANDER MD [address] [place] [address] 07-01-2024 00:00-0500 Body temperature 98.06 [degF] DR SEDRICK ALEXANDER MD [address] [place] [address] 06-30-2024 18:47-0500 Heart rate 73 /min DR SEDRICK ALEXANDER MD [address] [place] [address] 06-30-2024 18:07-0500 Heart rate 70 /min DR SEDRICK ALEXANDER MD [address] [place] [address] 06-30-2024 17:36-[address] SEDRICK ALEXANDER MD [address] [place] [address] 06-30-2024 17:05-0500 Body temperature 97.52 [degF] DR SEDRICK ALEXANDER MD [address] [place] [address] 06-30-2024 17:00-0500 Respiratory Rate - Anes 0 br/min DR SEDRICK ALEXANDER MD [address] [place] [address] 06-30-2024 16:55-0500 Body temperature 94.8 [degF] DR SEDRICK ALEXANDER MD [address] [place] [address] 06-30-2024 16:55-0500 Respiratory Rate - Anes 12 br/min DR SEDRICK ALEXANDER MD [address] [place] [address] 06-30-2024 16:50-0500 Body temperature 94.89 [degF] DR SEDRICK ALEXANDER MD [address] [place] [address] 06-30-2024 16:50-0500 Respiratory Rate - Anes 12 br/min DR SEDRICK ALEXANDER MD [address] [place] [address] 06-30-2024 16:45-0500 Body temperature 94.77 [degF] DR SEDRICK ALEXANDER MD [address] [place] [address] 06-30-2024 10:23-0500 Blood Pressure Cuff Size DR SEDRICK ALEXANDER MD [address] [place] [address] 06-30-2024 10:23-[address] SEDRICK ALEXANDER MD [address] [place] [address] 06-29-2024 16:14-0500 Heart rate 65 /min DR SEDRICK ALEXANDER MD [facility] 06-27-2024 12:50-0500 Body height [address] SEDRICK ALEXANDER MD [facility] 06-27-2024 12:50-0500 Body weight 110.[address] SEDRICK ALEXANDER MD [address] [place] [address] 06-27-2024 12:50-0500 Body weight 30.61 kg/m2 DR SEDRICK ALEXANDER MD [address] 06-27-2024 08:36-0500 Body weight 108.[address] Jessi Olguin MD Work Phone: 5(592)702-411291 [place] [address] 06-27-2024 08:36-0500 Inhaled oxygen flow rate 4 L/min Dr. eJssi Olguin MD Work Phone: 6(241)965-772281 [address] 06-27-2024 08:36-0500 SaO2% (BldA) [Mass fraction] 91 % Dr. Jessi Olguin MD Work Phone: [facility] 06-27-2024 05:38-0500 Body mass index (BMI) [Ratio] 29.9 kg/m2 Dr. Jessi Olguin MD Work Phone: [facility] 06-27-2024 03:00-0500 Body temperature 98.6 [degF] Dr. Jessi Olguin MD Work Phone: [facility] 06-27-2024 03:00-0500 Diastolic blood pressure 81 mm[Hg] Dr. Jessi Olguin MD Work Phone: [facility] 06-27-2024 03:00-0500 Heart rate 70 /min Dr. Jessi Olguin MD Work Phone: [facility] 06-27-2024 03:00-0500 Respiratory rate 18 /min Dr. Jessi Olguin MD Work Phone: [facility] 06-27-2024 03:00-0500 Systolic blood pressure 118 mm[Hg] Dr. Jessi Olguin MD Work Phone: [facility] 05-25-2024 20:00-0500 Heart rate 71 /min Dr. Jessi Olguin MD Work Phone: [facility] 05-25-2024 20:00-0500 Respiratory rate 18 /min Dr. Jessi Olguin MD Work Phone: [facility] 05-25-2024 20:00-0500 SaO2% (BldA) [Mass fraction] 95 % Dr. Jessi Olguin MD Work Phone: [facility] 05-25-2024 18:00-0500 Body temperature 96.2 [degF] Dr. Jessi Olguin MD Work Phone: 1(527)735-525191 [place] [address] 05-25-2024 18:00-0500 Diastolic blood pressure 93 mm[Hg] Dr. Jessi Olguin MD Work Phone: 4(690)661-024791 [place] [address] 05-25-2024 18:00-0500 Systolic blood pressure 132 mm[Hg] Dr. Jessi Olguin MD Work Phone: [facility] 09-19-2023 08:00-0400 Body mass index (BMI) [Ratio] 31.4 kg/m2 Dr. Jessi Olguin Work Phone: [facility] 09-19-2023 08:00-0400 Body temperature 98.7 [degF] Dr. Jessi Olguin Work Phone: [facility] 09-19-2023 08:00-0400 Diastolic blood pressure 86 mm[Hg] Dr. Jessi Olguin Work Phone: [facility] 09-19-2023 08:00-0400 Heart rate 94 /min Dr. Jessi Olguin Work Phone: [facility] 09-19-2023 08:00-0400 Respiratory rate 18 /min Dr. Jessi Olguin Work Phone: [facility] 09-19-2023 08:00-0400 Systolic blood pressure 125 mm[Hg] Dr. Jessi Olguin Work Phone: [facility] 09-02-2023 00:22-0400 Body weight 114.[address] Jessi Olguin Work Phone: [facility] 08-29-2023 08:06-0400 Body mass index (BMI) [Ratio] 31.4 kg/m2 Dr. Jessi Olguin Work Phone: [facility] 08-29-2023 08:06-0400 Body temperature 97.5 [degF] Dr. Jessi Olguin Work Phone: 4(934)540-198491 [place] [address] 08-29-2023 08:06-0400 Diastolic blood pressure 79 mm[Hg] Dr. Jessi Olguin Work Phone: 3(384)572-637781 [address] 08-29-2023 08:06-0400 Heart rate 74 /min Dr. Jessi Olguin Work Phone: 5(557)516-594691 [place] [address] 08-29-2023 08:06-0400 Respiratory rate 20 /min Dr. Jessi Olguin Work Phone: 7(605)583-315091 [place] [address] 08-29-2023 08:06-0400 Systolic blood pressure 108 mm[Hg] Dr. Jessi Olguin Work Phone: 6(565)663-319091 [place] [address] 08-02-2023 00:27-0500 Body weight 114.[address] Jessi Olguin Work Phone: 1(326)590-624691 [place] [address] 08-01-2023 08:00-0500 Body mass index (BMI) [Ratio] 31.4 kg/m2 Dr. Jessi Olguin Work Phone: [facility] 08-01-2023 08:00-0500 Body temperature 96.5 [degF] Dr. Jessi Olguin Work Phone: 3(889)732-332791 [place] [address] 08-01-2023 08:00-0500 Diastolic blood pressure 76 mm[Hg] Dr. Jessi Olguin Work Phone: [facility] 08-01-2023 08:00-0500 Heart rate 86 /min Dr. Jessi Olguin Work Phone: [facility] 08-01-2023 08:00-0500 Respiratory rate 20 /min Dr. Jessi Olguin Work Phone: [facility] 08-01-2023 08:00-0500 Systolic blood pressure 141 mm[Hg] Dr. Jessi Olguin Work Phone: [facility] 07-11-2023 08:10-0500 Body mass index (BMI) [Ratio] 31.4 kg/m2 Dr. Jessi Olguin Work Phone: [facility] 07-11-2023 08:10-0500 Body temperature 96.9 [degF] Dr. Jessi Olguin Work Phone: [facility] 07-11-2023 08:10-0500 Diastolic blood pressure 84 mm[Hg] Dr. Jessi Olguin Work Phone: [facility] 07-11-2023 08:10-0500 Heart rate 103 /min Dr. Jessi Olguin Work Phone: [facility] 07-11-2023 08:10-0500 Respiratory rate 16 /min Dr. Jessi Olguin Work Phone: [facility] 07-11-2023 08:10-0500 Systolic blood pressure 121 mm[Hg] Dr. Jessi Olguin Work Phone: [facility] 07-09-2023 08:28-0500 Body height 190.[address] Jessi Olguin Work Phone: [facility] 07-09-2023 08:28-0500 Body mass index (BMI) [Ratio] 30.7 kg/m2 Dr. Jessi Olguin Work Phone: [facility] 07-09-2023 08:28-0500 Body weight 111.[address] Jessi Olguin Work Phone: [facility] 07-09-2023 08:28-0500 Diastolic blood pressure 67 mm[Hg] Dr. Jessi Olguin Work Phone: [facility] 07-09-2023 08:28-0500 Heart rate 78 /min Dr. Jessi Olguin Work Phone: [facility] 07-09-2023 08:28-0500 Respiratory rate 18 /min Dr. Jessi Olguin Work Phone: [facility] 07-09-2023 08:28-0500 SaO2% (BldA) [Mass fraction] 95 % Dr. Jessi Olguin Work Phone: [facility] 07-09-2023 08:28-0500 Systolic blood pressure 111 mm[Hg] Dr. Jessi Olguin Work Phone: 6(145)417-820391 [place] [address] 07-04-2023 00:26-0500 Body weight 114.[address] Jessi Olguin Work Phone: 5(107)390-315574 [place] [address] 06-27-2023 08:04-0500 Body mass index (BMI) [Ratio] 31.4 kg/m2 Dr. Jessi Olguin Work Phone: 7(035)985-170774 [place] [address] 06-27-2023 08:04-0500 Body temperature 97.1 [degF] Dr. Jessi Olguin Work Phone: 9(048)844-676791 [place] [address] 06-27-2023 08:04-0500 Diastolic blood pressure 64 mm[Hg] Dr. Jessi Olguin Work Phone: 1(064)812-527191 [place] [address] 06-27-2023 08:04-0500 Heart rate 95 /min Dr. Jessi Olguin Work Phone: 7(906)969-660991 [place] [address] 06-27-2023 08:04-0500 Respiratory rate 18 /min Dr. Jessi Olguin Work Phone: 8(834)170-190691 [place] [address] 06-27-2023 08:04-0500 Systolic blood pressure 119 mm[Hg] Dr. eJssi Olguin Work Phone: 3(134)628-261781 [address] 06-03-2023 00:41-0500 Body weight 114.[address] Jessi Olguin Work Phone: 8(526)833-949181 [address] 05-30-2023 08:04-0500 Body mass index (BMI) [Ratio] 31.4 kg/m2 Dr. Jessi Olguin Work Phone: [facility] 05-30-2023 08:04-0500 Body temperature 97.5 [degF] Dr. Jessi Olguin Work Phone: [facility] 05-30-2023 08:04-0500 Diastolic blood pressure 78 mm[Hg] Dr. Jessi Olguin Work Phone: [facility] 05-30-2023 08:04-0500 Heart rate 95 /min Dr. Jessi Olguin Work Phone: [facility] 05-30-2023 08:04-0500 Respiratory rate 18 /min Dr. Jessi Olguin Work Phone: [facility] 05-30-2023 08:04-0500 Systolic blood pressure 139 mm[Hg] Dr. Jessi Olguin Work Phone: [facility] 05-16-2023 08:10-0500 Body mass index (BMI) [Ratio] 31.4 kg/m2 Dr. Jessi Olguin Work Phone: [facility] 05-16-2023 08:10-0500 Body temperature 96.7 [degF] Dr. Jessi Olguin Work Phone: [facility] 05-16-2023 08:10-0500 Diastolic blood pressure 77 mm[Hg] Dr. Jessi Olguin Work Phone: [facility] 05-16-2023 08:10-0500 Heart rate 107 /min Dr. Jessi Olguin Work Phone: [facility] 05-16-2023 08:10-0500 Respiratory rate 18 /min Dr. Jessi Olguin Work Phone: [facility] 05-16-2023 08:10-0500 Systolic blood pressure 119 mm[Hg] Dr. Jessi Olguin Work Phone: [facility] 05-09-2023 08:09-0500 Body mass index (BMI) [Ratio] 31.4 kg/m2 Dr. Jessi Olguin Work Phone: [facility] 05-09-2023 08:09-0500 Body temperature 97.5 [degF] Dr. Jessi Olguin Work Phone: [facility] 05-09-2023 08:09-0500 Diastolic blood pressure 63 mm[Hg] Dr. Jessi Olguin Work Phone: [facility] 05-09-2023 08:09-0500 Heart rate 81 /min Dr. Jessi Olguin Work Phone: [facility] 05-09-2023 08:09-0500 Respiratory rate 18 /min Dr. Jessi Olguin Work Phone: [facility] 05-09-2023 08:09-0500 Systolic blood pressure 133 mm[Hg] Dr. Jessi Olguin Work Phone: [facility] 05-03-2023 00:35-0500 Body weight 114.[address] Jessi Olguin Work Phone: [facility] 05-02-2023 08:05-0500 Body mass index (BMI) [Ratio] 31.4 kg/m2 Dr. Jessi Olguin Work Phone: [facility] 05-02-2023 08:05-0500 Body temperature 97.4 [degF] Dr. Jessi Olguin Work Phone: [facility] 05-02-2023 08:05-0500 Diastolic blood pressure 73 mm[Hg] Dr. Jessi Olguin Work Phone: [facility] 05-02-2023 08:05-0500 Heart rate 97 /min Dr. Jessi Olguin Work Phone: [facility] 05-02-2023 08:05-0500 Respiratory rate 18 /min Dr. Jessi Olguin Work Phone: [facility] 05-02-2023 08:05-0500 Systolic blood pressure 124 mm[Hg] Dr. Jessi Olguin Work Phone: [facility] 04-03-2023 00:18-0400 Body weight 114.[address] Jessi Olguin Work Phone: [facility] 03-28-2023 08:17-0400 Body mass index (BMI) [Ratio] 31.4 kg/m2 Dr. Jessi Olguin Work Phone: [facility] 03-28-2023 08:17-0400 Diastolic blood pressure 72 mm[Hg] Dr. Jessi Olguin Work Phone: [facility] 03-28-2023 08:17-0400 Heart rate 84 /min Dr. Jessi Olguin Work Phone: [facility] 03-28-2023 08:17-0400 Respiratory rate 18 /min Dr. Jessi Olguin Work Phone: [facility] 03-28-2023 08:17-0400 Systolic blood pressure 123 mm[Hg] Dr. Jessi Olguin Work Phone: [facility] 03-14-2023 08:41-0400 Body temperature 97.6 [degF] Dr. Jessi Olguin Work Phone: [facility] 03-13-2023 10:04-0400 Body height 190.[address] Jessi Olguin Work Phone: [facility] 03-13-2023 10:04-0400 Body mass index (BMI) [Ratio] 29.6 kg/m2 Dr. Jessi Olguin Work Phone: [facility] 03-13-2023 10:04-0400 Body temperature 97.4 [degF] Dr. Jessi Olguin Work Phone: [facility] 03-13-2023 10:04-0400 Body weight 107.[address] Jessi Olguin Work Phone: [facility] 03-13-2023 10:04-0400 Diastolic blood pressure 66 mm[Hg] Dr. Jessi Olguin Work Phone: [facility] 03-13-2023 10:04-0400 Heart rate 85 /min Dr. Jessi Olguin Work Phone: [facility] 03-13-2023 10:04-0400 Respiratory rate 17 /min Dr. Jessi Olguin Work Phone: [facility] 03-13-2023 10:04-0400 SaO2% (BldA) [Mass fraction] 98 % Dr. Jessi Olguin Work Phone: [facility] 03-13-2023 10:04-0400 Systolic blood pressure 97 mm[Hg] Dr. Jessi Olguin Work Phone: 7(185)785-351091 [place] [address] 03-03-2023 00:27-0400 Body weight 114.[address] Jessi Olguin Work Phone: [facility] 02-28-2023 08:22-0400 Body mass index (BMI) [Ratio] 31.4 kg/m2 Dr. Jessi Olguin Work Phone: 6(978)320-587381 [address] 02-28-2023 08:22-0400 Body temperature 95.9 [degF] Dr. Jessi Olguin Work Phone: 1(634)741-874281 [address] 02-28-2023 08:22-0400 Diastolic blood pressure 77 mm[Hg] Dr. Jessi Olguin Work Phone: 8(912)730-442391 [place] [address] 02-28-2023 08:22-0400 Heart rate 108 /min Dr. Jessi Olguin Work Phone: 7(630)126-056081 [address] 02-28-2023 08:22-0400 Respiratory rate 20 /min Dr. Jessi Olguin Work Phone: 1(028)383-284791 [place] [address] 02-28-2023 08:22-0400 Systolic blood pressure 124 mm[Hg] Dr. Jessi Olguin Work Phone: [facility] 02-14-2023 08:08-0400 Body height 190.[address] Jessi Olguin Work Phone: 7(178)689-678691 [place] [address] 02-14-2023 08:08-0400 Body weight 114.[address] Jessi Olguin Work Phone: [facility] 12-13-2022 09:22-0400 Body weight 114.[address] Jessi Olguin Work Phone: 2(555)706-532591 [place] [address] 12-13-2022 09:22-0400 Diastolic blood pressure 56 mm[Hg] Dr. Jessi Olguin Work Phone: [facility] 12-13-2022 09:22-0400 Heart rate 66 /min Dr. Jessi Olguin Work Phone: [facility] 12-13-2022 09:22-0400 Respiratory rate 22 /min Dr. Jessi Olguin Work Phone: [facility] 12-13-2022 09:22-0400 Systolic blood pressure 86 mm[Hg] Dr. Jessi Olguin Work Phone: [facility] 07-10-2022 21:49-0500 Body height 190.5 cm [facility] 07-10-2022 21:49-0500 Body mass index (BMI) [Ratio] 32.3 kg/m2 [facility] 07-10-2022 21:49-0500 Body temperature 97.8 [degF] [facility] 07-10-2022 21:49-0500 Body weight 117.48 kg [facility] 07-10-2022 21:49-0500 Diastolic blood pressure 76 mm[Hg] [facility] 07-10-2022 21:49-0500 Heart rate 69 /min [facility] 07-10-2022 21:49-0500 Respiratory rate 16 /min [facility] 07-10-2022 21:49-0500 SaO2% (BldA) [Mass fraction] 100 % [facility] 07-10-2022 21:49-0500 Systolic blood pressure 142 mm[Hg] [facility] 01-22-2022 12:43-0400 Body height 190.[address] Jessi Olguin Work Phone: [facility] Work Phone: 01-22-2022 12:43-0400 Body mass index (BMI) [Ratio] 32.3 kg/m2 Dr. Jessi Olguin Work Phone: [facility] Work Phone: 01-22-2022 12:43-0400 Body temperature 97.2 [degF] Dr. Jessi Olguin Work Phone: [facility] Work Phone: 01-22-2022 12:43-0400 Body weight 117.[address] Jessi Olguin Work Phone: [facility] Work Phone: 01-22-2022 12:43-0400 Diastolic blood pressure 74 mm[Hg] Dr. Jessi Olguin Work Phone: [facility] Work Phone: 01-22-2022 12:43-0400 Heart rate 67 /min Dr. Jessi Olguin Work Phone: [facility] Work Phone: 01-22-2022 12:43-0400 Respiratory rate 16 /min Dr. Jessi Olguin Work Phone: [facility] Work Phone: 01-22-2022 12:43-0400 SaO2% (BldA) [Mass fraction] 99 % Dr. Jessi Olguin Work Phone: [facility] Work Phone: 01-22-2022 12:43-0400 Systolic blood pressure 121 mm[Hg] Dr. Jessi Olguin Work Phone: [facility] Work Phone: 01-05-2022 14:04-0400 Body temperature 97.6 [degF] Dr. Jessi Olguin Work Phone: [facility] Work Phone: 01-05-2022 14:04-0400 Diastolic blood pressure 60 mm[Hg] Dr. Jessi Olguin Work Phone: [facility] Work Phone: 01-05-2022 14:04-0400 Heart rate 67 /min Dr. Jessi Olguin Work Phone: [facility] Work Phone: 01-05-2022 14:04-0400 Respiratory rate 18 /min Dr. Jessi Olguin Work Phone: [facility] Work Phone: 01-05-2022 14:04-0400 Systolic blood pressure 97 mm[Hg] Dr. Jessi Olguin Work Phone: [facility] Work Phone: 01-05-2022 14:00-0400 SaO2% (BldA) [Mass fraction] 94 % Dr. Jessi Olguin Work Phone: [facility] Work Phone: 01-05-2022 13:50-0400 Inhaled oxygen flow rate 2 L/min Dr. Jessi Olguin Work Phone: [facility] Work Phone: 01-05-2022 09:56-0400 Body height 190.[address] Jessi Olguin Work Phone: [facility] Work Phone: 01-05-2022 09:56-0400 Body mass index (BMI) [Ratio] 32.3 kg/m2 Dr. Jessi Olguin Work Phone: [facility] Work Phone: 01-05-2022 09:56-0400 Body weight 117.[address] Jessi Olguin Work Phone: [facility] Work Phone: 12-29-2021 13:48-0400 Body temperature 97.5 [degF] Dr. Jessi Olguin Work Phone: [facility] Work Phone: 12-29-2021 13:48-0400 Diastolic blood pressure 72 mm[Hg] Dr. Jessi Olguin Work Phone: [facility] Work Phone: 12-29-2021 13:48-0400 Heart rate 70 /min Dr. Jessi Olguin Work Phone: [facility] Work Phone: 12-29-2021 13:48-0400 Respiratory rate 17 /min Dr. Jessi Olguin Work Phone: [facility] Work Phone: 12-29-2021 13:48-0400 SaO2% (BldA) [Mass fraction] 97 % Dr. Jessi Olguin Work Phone: [facility] Work Phone: 12-29-2021 13:48-0400 Systolic blood pressure 117 mm[Hg] Dr. Jessi Olguin Work Phone: [facility] Work Phone: 12-21-2021 08:41-0400 Body mass index (BMI) [Ratio] 33.2 kg/m2 Dr. Jessi Olguin Work Phone: [facility] Work Phone: 12-21-2021 08:41-0400 Body temperature 97.5 [degF] Dr. Jessi Olguin Work Phone: [facility] Work Phone: 12-21-2021 08:41-0400 Diastolic blood pressure 58 mm[Hg] Dr. Jessi Olguin Work Phone: [facility] Work Phone: 12-21-2021 08:41-0400 Heart rate 85 /min Dr. Jessi Olguin Work Phone: [facility] Work Phone: 12-21-2021 08:41-0400 Respiratory rate 16 /min Dr. Jessi Olguin Work Phone: [facility] Work Phone: 12-21-2021 08:41-0400 Systolic blood pressure 106 mm[Hg] Dr. Jessi Olguin Work Phone: [facility] Work Phone: 12-01-2021 00:41-0400 Body weight 120.[address] Jessi Olguin Work Phone: [facility] Work Phone: 11-23-2021 10:28-0400 Body mass index (BMI) [Ratio] 33.2 kg/m2 Dr. Jessi Olguin Work Phone: [facility] Work Phone: 11-23-2021 10:28-0400 Body temperature 98.3 [degF] Dr. Jessi Olguin Work Phone: [facility] Work Phone: 11-23-2021 10:28-0400 Diastolic blood pressure 57 mm[Hg] Dr. Jessi Olguin Work Phone: [facility] Work Phone: 11-23-2021 10:28-0400 Heart rate 98 /min Dr. Jessi Olguin Work Phone: [facility] Work Phone: 11-23-2021 10:28-0400 Respiratory rate 20 /min Dr. Jessi Olguin Work Phone: [facility] Work Phone: 11-23-2021 10:28-0400 Systolic blood pressure 102 mm[Hg] Dr. Jessi Olguin Work Phone: [facility] Work Phone: 11-14-2021 09:22-0400 Body height 190.[address] Jessi Olguin Work Phone: [facility] Work Phone: 11-14-2021 09:22-0400 Body mass index (BMI) [Ratio] 32.3 kg/m2 Dr. Jessi Olguin Work Phone: [facility] Work Phone: 11-14-2021 09:22-0400 Body weight 117.[address] Jessi Olguin Work Phone: [facility] Work Phone: 11-14-2021 09:22-0400 Diastolic blood pressure 60 mm[Hg] Dr. Jessi Olguin Work Phone: [facility] Work Phone: 11-14-2021 09:22-0400 Heart rate 73 /min Dr. Jessi Olguin Work Phone: [facility] Work Phone: 11-14-2021 09:22-0400 Respiratory rate 18 /min Dr. Jessi Olguin Work Phone: [facility] Work Phone: 11-14-2021 09:22-0400 Systolic blood pressure 90 mm[Hg] Dr. Jessi Olguin Work Phone: [facility] Work Phone: 11-01-2021 01:13-0400 Body weight 120.[address] Jessi Olguin Work Phone: [facility] Work Phone: 10-26-2021 10:38-0400 Body mass index (BMI) [Ratio] 33.2 kg/m2 Dr. Jessi Olguin Work Phone: [facility] Work Phone: 10-26-2021 10:38-0400 Body temperature 96.5 [degF] Dr. Jessi Olguin Work Phone: [facility] Work Phone: 10-26-2021 10:38-0400 Diastolic blood pressure 57 mm[Hg] Dr. Jessi Olguin Work Phone: [facility] Work Phone: 10-26-2021 10:38-0400 Heart rate 93 /min Dr. Jessi Olguin Work Phone: [facility] Work Phone: 10-26-2021 10:38-0400 Respiratory rate 18 /min Dr. Jessi Olguin Work Phone: [facility] Work Phone: 10-26-2021 10:38-0400 Systolic blood pressure 99 mm[Hg] Dr. Jessi Olguin Work Phone: [facility] Work Phone: 10-05-2021 09:59-0400 Body height 190.[address] Jessi Olguin Work Phone: [facility] Work Phone: 10-05-2021 09:59-0400 Body mass index (BMI) [Ratio] 33.2 kg/m2 Dr. Jessi Olguin Work Phone: [facility] Work Phone: 10-05-2021 09:59-0400 Body temperature 97.1 [degF] Dr. Jessi Olguin Work Phone: [facility] Work Phone: 10-05-2021 09:59-0400 Body weight 120.[address] Jessi Olguin Work Phone: [facility] Work Phone: 10-05-2021 09:59-0400 Diastolic blood pressure 55 mm[Hg] Dr. Jessi Olguin Work Phone: [facility] Work Phone: 10-05-2021 09:59-0400 Heart rate 78 /min Dr. Jessi Olguin Work Phone: [facility] Work Phone: 10-05-2021 09:59-0400 Respiratory rate 18 /min Dr. Jessi Olguin Work Phone: [facility] Work Phone: 10-05-2021 09:59-0400 Systolic blood pressure 102 mm[Hg] Dr. Jessi Olguin Work Phone: [facility] Work Phone: 07-25-2021 08:27-0500 Body mass index (BMI) [Ratio] 32.5 kg/m2 Dr. Jessi Olguin Work Phone: [facility] Work Phone: 07-25-2021 08:27-0500 Body temperature 97.2 [degF] Dr. Jessi Olguin Work Phone: [facility] Work Phone: 07-25-2021 08:27-0500 Body weight 121.[address] Jessi Olguin Work Phone: [facility] Work Phone: 07-25-2021 08:27-0500 Diastolic blood pressure 61 mm[Hg] Dr. Jessi Olguin Work Phone: [facility] Work Phone: 07-25-2021 08:27-0500 Heart rate 88 /min Dr. Jessi Olguin Work Phone: [facility] Work Phone: 07-25-2021 08:27-0500 Respiratory rate 16 /min Dr. Jessi Olguin Work Phone: [facility] Work Phone: 07-25-2021 08:27-0500 SaO2% (BldA) [Mass fraction] 95 % Dr. Jessi Olguin Work Phone: [facility] Work Phone: 07-25-2021 08:27-0500 Systolic blood pressure 95 mm[Hg] Dr. Jessi Olguin Work Phone: [facility] Work Phone: Encounters Encounter Date Encounter Type Care Provider Facility Start: 01-05-2025 ambulatory Jessi Olguin Facility:[facility] Start: 01-01-2025 ambulatory Jessi Olguin Facility:[facility] Start: 12-25-2024 End: 12-25-2024 KARTHIK Graham [facility] Work Phone: Start: 12-25-2024 End: 12-25-[address] Jessi Olguin MD Work Phone: [facility] Start: 12-01-2024 End: 12-01-[address] 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 Jessi Olguin MD Work Phone: [facility] Start: 12-01-2024 End: 12-01-2024 ambulatory Jessi Olguin Facility:[facility] Start: 11-18-2024 Non-patient / Non-visit Dr. Osmar Brown MD [facility] Work Phone: Start: 11-18-2024 Dr. Osmar Brown MD [facility] Work Phone: Start: 11-18-2024 Non-patient / Non-visit Dr. Judson Isabel MD [facility] Start: 11-18-2024 Dr. Judson Isabel MD [facility] Start: 11-17-2024 Non-patient / Non-visit Dr. Osmar Brown MD [facility] Work Phone: Start: 11-17-2024 Dr. Osmar Brown MD [facility] Work Phone: Start: 11-17-2024 Non-patient / Non-visit Dr. Judson Isabel MD [facility] Start: 11-17-2024 Dr. Judson Isabel MD [facility] Start: 11-16-2024 Non-patient / Non-visit [facility] Work Phone: Start: 11-16-2024 Dr. Osmar Brown MD -[facility] Work Phone: Start: 11-16-2024 Non-patient / Non-visit Dr. Judson Isabel MD [facility] Start: 11-16-2024 Dr. Judson Isabel MD [facility] Start: 11-15-2024 Non-patient / Non-visit Dr. Erin Morris MD -[facility] Work Phone: Start: 11-15-2024 Dr. Erin Morris MD [facility] Work Phone: Start: 11-15-2024 Non-patient / Non-visit Dr. Johny Barclay MD [facility] Start: 11-15-2024 Dr. Johny Barclay MD [facility] Start: 11-14-2024 Non-patient / Non-visit Dr. Johny Barclay MD [facility] Start: 11-14-2024 ambulatory Johny Barclay Facility:[facility] Start: 11-14-2024 End: 11-18-2024 Evaluation and management of inpatient Dr. Jessi Olguin MD Work Phone: [facility] Work Phone: Start: 11-14-2024 End: 11-18-2024 Dr. 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 Jessi Olguin MD Work Phone: [facility] Work Phone: Start: 10-14-2024 End: 10-14-[address] Jessi Olguin MD Work Phone: [facility] Work Phone: Start: 10-14-2024 End: 10-14-[address] Jessi Olguin MD -Ultrasound [facility] Work Phone: Start: 10-14-2024 End: 10-14-2024 Dr. Jessi Olguin MD -Ultrasound [facility] Work Phone: Start: 10-14-2024 End: 10-14-2024 ambulatory [facility] Facility:[facility] Start: 09-21-2024 End: 09-21-2024 Dr. [facility] Start: 09-21-2024 End: 09-21-2024 Emergency department patient visit Dr. Gary Ashby MD -Emergency Department Work Phone: Start: 09-04-2024 End: 09-04-[address] Jessi Olguin MD Work Phone: [facility] Work Phone: Start: 09-04-2024 End: 09-04-[address] Jessi Olguin MD -Laboratory, [facility] Start: 09-04-2024 End: 09-04-2024 Dr. Jessi Olguin MD -Laboratory [facility] Start: 09-04-2024 End: 09-04-2024 ambulatory [facility] Facility:[facility] Start: 09-03-2024 Non-patient / Non-visit Dr. Wood Braxton MD -[facility] Work Phone: Start: 09-03-2024 Dr. Wood Braxton MD -[facility] Work Phone: Start: 09-02-2024 Non-patient / Non-visit Dr. Wood Braxton MD -[facility] Work Phone: Start: 09-02-2024 Dr. Wood Braxton MD -[facility] Work Phone: Start: 09-01-2024 ambulatory Shonda Gaston Facility :[facility] Start: 09-01-2024 End: 09-03-2024 Evaluation and management of inpatient Dr. Shonda Gaston MD -[facility] Work Phone: Start: 09-01-2024 End: 09-03-2024 Dr. Wood Braxton MD -[facility] it Work Phone: Start: 09-01-2024 End: 09-01-2024 Patient encounter procedure Sanaz Angel PA -[facility] Work Phone: Start: 09-01-2024 End: 09-01-2024 Sanaz Angel PA -[facility] Work Phone: Start: 09-01-2024 End: 09-01-2024 ambulatory Jessi Olguin Facility:[facility] Start: 08-03-2024 End: 08-03-2024 Patient encounter procedure Mey Rice MAINTENANCE AND UTILITIES SUPERVISOR-C -[facility] Work Phone: Start: 08-03-2024 End: 08-03-2024 Mey Rice MAINTENANCE AND UTILITIES SUPERVISOR-C -[facility] Work Phone: Start: 08-03-2024 End: 08-03-2024 ambulatory Jessi Olguin Facility:[facility] Start: 07-17-2024 ambulatory Ezequiel Barriosi ty:[facility] Start: 07-17-2024 Registered Referred Ezequiel Toure -[facility] Start: 07-17-2024 Ezequiel Toure [facility] Start: 07-10-2024 ambulatory Mey Rice NP Fac ility:[facility] Start: 07-10-2024 End: 07-10-2024 Patient encounter procedure Danni Davis MAINTENANCE AND UTILITIES SUPERVISOR-C -Laboratory Work Phone: Start: 07-10-2024 End: 07-10-2024 Danni Davis MAINTENANCE AND UTILITIES SUPERVISOR-C -Laboratory Work Phone: Start: 07-10-2024 End: 07-10-2024 ambulatory Danni Davis NP Facility:[facility] Start: 07-07-2024 End: 07-07-2024 Dhiraj Andes DO -Emergency Departmen t Work Phone: Start: 07-07-2024 End: 07-07-2024 Emergency department patient visit Dhiraj Andconstance -Emergency Department Work Phone: Start: 06-27-2024 End: 07-01-2024 Evaluation and management of inpatient DR SEDRICK ALEXANDER MD [facility] Start: 06-27-2024 ambulatory [facility] Start: 06-27-2024 Non-patient / Non-visit Dr. Gracia Chavez MD [facility] Start: 06-27-2024 Dr. Gracia Chavez MD [facility] Start: 06-27-2024 Non-patient / Non-visit Dr. Jessi [facility] Work Phone: Start: 06-27-2024 Dr. Jessi Adams [facility] Work Phone: Start: 06-26-2024 Non-patient / Non-visit Dr. Gracia Chavez MD [facility] Start: 06-26-2024 Dr. Gracia Chavez MD [facility] Start: 06-26-2024 Non-patient / Non-visit Dr. Jessi [facility] Work Phone: Start: 06-26-2024 Dr. Jessi Adams [facility] Work Phone: Start: 06-25-2024 ambulatory [facility] Start: 06-25-2024 Non-patient / Non-visit Dr. Gracia Chavez MD [facility] Start: 06-25-2024 Dr. Gracia Chavez MD [facility] Start: 06-25-2024 Non-patient / Non-visit Dr. Jessi Leon [facility] Work Phone: Start: 06-25-2024 Dr. Jessi Kaur [facility] Inpatient Physicians Work Phone: Start: 06-24-2024 Non-patient / Non-visit Dr. Jessi Kaur DO [facility] Work Phone: Start: 06-24-2024 Dr. Jessi Kaur DO Located within [facility] Inpatient [facility] Work Phone: Start: 06-24-2024 ambulatory Jessi Olguin Facility[facility] Start: 06-24-2024 End: 06-27-2024 Evaluation and management of inpatient Dr. Jessi Kaur DO -Intensive Care Unit Work Phone: Start: 06-24-2024 End: 06-27-2024 Dr. eJssi Kaur DO -Intensive Care Unit Work Phone: Start: 05-25-2024 End: 05-25-2024 Emergency department patient visit Dr. Jose Bliss DO -Emergency Department Work Phone: Start: 03-22-2024 End: 03-22-2024 Emergency department patient visit Jessi Olguin Facility:[facility] Start: 02-25-2024 End: 02-25-2024 ambulatory Jessi Olguin Facility:[facility] Start: 01-09-2024 ambulatory Jessi Olguin [facility] Start: 09-19-2023 End: 10-01-[address] Jessi Olguin Work Phone: [facility] Work Phone: Start: 09-19-2023 End: 10-01-[address] Jessi Olguin Work Phone: [facility] Work Phone: Start: 08-29-2023 End: 09-01-[address] Jessi Olguin Work Phone: [facility] Work Phone: Start: 08-29-2023 End: 09-01-[address] Jessi Olguin Work Phone: [facility] Work Phone: Start: 08-01-2023 End: 08-01-[address] Jessi Olguin Work Phone: [facility] Work Phone: Start: 08-01-2023 End: 08-01-[address] Jessi Olguin Work Phone: [facility] Work Phone: Start: 07-09-2023 End: 07-09-[address] Jessi Olguin Work Phone: [facility] Work Phone: Start: 06-27-2023 End: 07-03-[address] Jessi Olguin Work Phone: [facility] Work Phone: Start: 06-27-2023 End: 07-03-[address] Jessi Olguin Work Phone: [facility] Work Phone: Start: 05-30-2023 End: 06-02-[address] Jessi Olguin Work Phone: [facility] Work Phone: Start: 05-30-2023 End: 06-02-[address] Jessi Olguin Work Phone: [facility] Work Phone: Start: 05-16-[address] Jessi Olguin Work Phone: [facility] Work Phone: Start: 05-13-2023 End: 05-13-[address] Jessi Olguin Work Phone: [facility] Work Phone: Start: 05-13-2023 End: 05-13-[address] Jessi Olguin Work Phone: [facility] Work Phone: Start: 05-09-2023 End: 05-09-[address] Jessi Olguin Work Phone: [facility] Work Phone: Start: 05-09-2023 End: 05-09-[address] Jessi Olguin Work Phone: [facility] Start: 05-09-[address] [facility] Work [facility]: Start: 05-02-2023 End: 05-02-[address] Jessi Olguin Work Phone: [facility] Work Phone: Start: 05-02-2023 End: 05-02-[address] [facility] Work Phone: Start: 03-28-2023 End: 04-02-[address] Jessi Olguin Work Phone: [facility] Work Phone: Start: 03-28-2023 End: 04-02-[address] Jess[facility] Work Phone: Start: 03-13-2023 End: 03-13-[address] Jessi Olguin Work Phone: [facility]-Pulmonary Medicine [facility] Work Phone: Start: 02-28-2023 End: 03-02-[address] Jessi Olguin Work Phone: [facility] Work Phone: Start: 02-28-2023 End: 03-02-[address] Jess[facility] Work Phone: Start: 12-13-2022 End: 12-13-[address] Jessi Olguin Work Phone: [facility] Work Phone: Start: 07-13-2022 End: 07-13-2022 ambulatory [facility] Work Phone: Start: 07-13-2022 End: 07-13-2022 Patient encounter procedure [facility] Start: 07-10-2022 End: 07-11-2022 Emergency department patient visit [facility]-Emergency Department Start: 03-30-2022 End: 03-30-[address] Jessi Olguin Work Phone: [facility] Work Phone: Start: 03-30-2022 End: 03-30-[address] Jessi Olguin Work Phone: [facility] Start: 02-02-2022 End: 02-02-[address] Jessi Olguin Work Phone: [facility] Start: 01-22-2022 End: 01-22-[address] Jessi Olguin Work Phone: [facility]-Pulmonary Medicine [facility] Start: 01-19-2022 End: 01-19-[address] Jessi Olguin Work Phone: [facility] Start: 01-12-2022 End: 01-12-[address] Jessi Olguin Work Phone: [facility] Start: 01-05-2022 Non-patient / Non-visit Dr. Jessi Olguin Work Phone: [facility] Start: 01-05-2022 End: 01-05-2022 Admission to same day surgery center Dr. Jess[facility]gu[facility] Start: 12-29-2021 End: 12-29-[address] Jessi Olguin Work Phone: [facility] Start: 12-21-2021 Non-patient / Non-visit Dr. Jessi Olguin Work Phone: [facility] Start: 12-21-2021 End: 12-21-[address] [facility] Start: 12-14-2021 Non-patient / Non-visit Dr. Jessi Olguin Work Phone: [facility] Start: 11-29-2021 End: 11-29-[address] Jessi Olguin Work Phone: [facility]-Laboratory, Specimen Start: 11-23-2021 Non-patient / Non-visit Dr. Jessi Olguin Work Phone: [facility] Start: 11-23-2021 End: 11-30-[address] Jessi Olguin Work Phone: [facility] Start: 11-16-2021 Non-patient / Non-visit Dr. Jessi Olguin Work Phone: [facility] Start: 11-14-2021 End: 11-14-[address] Jessi Olguin Work Phone: [facility] Start: 11-09-2021 Non-patient / Non-visit Dr. Jessi Olguin Work Phone: [facility] Start: 11-02-2021 Non-patient / Non-visit Dr. Jessi Olguin Work Phone: [facility] Start: 10-26-2021 Non-patient / Non-visit Dr. Jessi Olguin Work Phone: [facility] Start: 10-26-2021 End: 10-31-[address] Jessi Olguin Work Phone: [facility] Start: 10-12-2021 Non-patient / Non-visit Dr. Jessi Olguin Work Phone: [facility] Start: 10-05-2021 Non-patient / Non-visit Dr. Jessi Olguin Work Phone: [facility] Start: 10-05-[address] Jessi Olguin Work Phone: [facility] Start: 10-03-2021 End: 10-03-[address] Jessi Olguin Work Phone: [facility] Start: 08-01-2021 End: 08-01-[address] Jessi Olguin Work Phone: [facility]/Neurology Start: 07-25-2021 End: 07-25-[address] [facility] Start: 07-04-2021 End: 07-04-[address] Jessi Olguin Work Phone: [facility] Start: 07-03-2021 End: 07-03-[address] Jessi Olguin Work Phone: [facility] Start: 06-10-2018 End: 06-11-2018 Patient encounter procedure SAGAR GARCIA Facility:[facility] Start: 05-16-2018 End: 05-17-2018 Patient encounter procedure SAGAR GARCIA Facility:[facility] Procedures Date Procedure Procedure Detail Performing Clinician Start: 12-01-2024 CT of chest without contrast Dr. Jessi Olguin MD Work Phone: Start: 11-18-2024 Blood count smear mc rscp w/mnl difrntl wbc count Dr. Jessi Olguin MD Work Phone: Start: 11-18-2024 Calculation of international normalized ratio Dr. Jessi Olguin MD Work Phone: Start: 11-18-[address] Jessi Olguin MD Work Phone: Start: 11-18-2024 Mean corpuscular hemoglobin concentration determination Dr. Jessi Olguin MD Work Phone: Start: 11-18-2024 Nucleated red blood cell count procedure Dr. Jessi Olguin MD Work Phone: Start: 11-17-2024 Platelet mean volume determination Dr. Jessi Olguin MD Work Phone: Start: 11-14-2024 Plain chest X-ray Dr. Camryn Olguin MD Work Phone: Start: 10-14-[address] Jessi [...] Work Phone: Start: 09-03-2024 Blood count smear rscp w/mnl difrntl wbc count Dr. Jessi [...] Amelie lópez- BS [employer] ICD- D233, SN: [id number]. RA- 7841, SN: [id number]. RV- [id number], SN: [id number] Start: 06-27-2024 Plain chest X-ray Dr. Camryn [...] Treatment Date Care Activity Detail Author Start: 12-01-20[facility] Start: 11-18-2024 [facility] Start: 11-18-2024 Patient discharge [facility] Start: 11-18-2024 Care planning and pr oblem solving actions [facility] Start: 11-17-2024 Care planning and pr oblem solving actions [facility] Start: 11-17-2024 End: 11-17-2024 [facility] Start: 11-17-2024 Cardiac monitoring [facility] Start: 11-17-2024 Notification of physician [facility] Start: 11-17-2024 Pulse taking [facility] Start: 11-17-2024 [facility] Start: 11-16-2024 End: 11-17-2024 [facility] Start: 11-16-2024 Catheterization of vein [facility] Start: 11-16-2024 Notification of physician [facility] Start: 11-16-2024 Preoperative care [facility] Start: 11-16-2024 Care planning and pr oblem solving actions [facility] Start: 11-15-2024 End: 11-16-2024 [facility] Start: 11-14-2024 End: 11-15-2024 [facility] Start: 11-14-2024 Care planning and pr oblem solving actions [facility] Start: 11-14-2024 Following clinical p athway protocol [facility] Start: 11-14-2024 Assessment of risk o f venous thromboembolism [facility] Start: 11-14-2024 Care regimes management [facility] Start: 11-14-2024 Insertion of cathete r into peripheral vein [facility] Start: 11-14-2024 Measuring intake and output [facility] Start: 11-14-2024 Notification of physician [facility] Start: 11-14-2024 Providing care accor ding to [facility] Start: 11-14-2024 Provision of activit y privileges [facility] Start: 11-14-2024 Referral to wreath maker [facility] Start: 11-14-2024 Referral to occupati onal therapist [facility] Start: 11-14-2024 Referral to service [facility] Start: 11-14-2024 End: 11-14-2024 [facility] Start: 11-14-2024 Admission procedure [facility] Start: 11-14-2024 Hospital admission, emergency, from emergency room, medical nature [facility] Start: 11-14-2024 [facility] Start: 09-21-2024 [facility] Start: 09-03-2024 Patient discharge [facility] Start: 09-02-2024 [facility] Start: 09-02-2024 Referral to service [facility] Start: 09-01-2024 Assessment of risk o f venous thromboembolism [facility] Start: 09-01-2024 Care regimes management [facility] Start: 09-01-2024 Fall prevention [facility] Start: 09-01-2024 Inhalation therapy procedure [facility] Start: 09-01-2024 Insertion of cathete r into peripheral vein [facility] Start: 09-01-2024 Introduction of urin daphne catheter [facility] Start: 09-01-2024 Measuring intake and output [facility] Start: 09-01-2024 Notification of physician [facility] Start: 09-01-2024 Oxygen therapy [facility] Start: 09-01-2024 Providing care accor ding to [facility] Start: 09-01-2024 Provision of activit y privileges [facility] Start: 09-01-2024 Referral to occupati onal therapist [facility] Start: 09-01-2024 Referral to service [facility] Start: 09-01-2024 End: 09-01-2024 [facility] Start: 09-01-2024 Following clinical p athway protocol [facility] Start: 09-01-2024 Legionella pneumophi la Ag [Presence] in Urine [facility] Start: 09-01-2024 Respiratory pathogen s DNA and RNA panel - Respiratory specimen by ZOE with probe detection [facility] Start: 09-01-2024 Streptococcus pneumo niae antigen assay [facility] Start: 09-01-2024 Verification routine [facility] Start: 09-01-2024 Plain X-ray abdomen Abdomen Si ngle View (Portable) [facility] Start: 09-01-2024 Admission procedure [facility] Start: 09-01-2024 Hospital admission, emergency, from emergency room, medical nature [facility] Start: 09-01-2024 [facility] Start: 09-01-2024 [facility] Start: 09-01-2024 Consultation [facility] Start: 09-01-2024 Patient referral to dietitian [facility] Start: 07-07-2024 [facility] Start: 06-27-2024 Patient discharge [facility] Start: 06-25-2024 Patient referral [facility] Work Phone: Start: 06-25-2024 Patient education [facility] Start: 06-25-2024 Provision of activit y privileges [facility] Start: 06-25-2024 Pulse taking [facility] Start: 06-25-2024 Wound care [facility] Start: 06-25-2024 Cardiac monitoring [facility] Start: 06-25-2024 Cardiac rehabilitati on - phase 1 [facility] Start: 06-25-2024 Cardiac rehabilitati on - phase 2 [facility] Start: 06-25-2024 End: 06-25-2024 Notification of physician [facility] Start: 06-25-2024 Oxygen therapy [facility] Start: 06-25-2024 Patient discharge [facility] Start: 06-25-2024 Systemic arterial pr essure monitoring [facility] Start: 06-25-2024 End: 06-25-2024 Taking patient vital signs [facility] Start: 06-25-2024 Vascular disease ris k assessment [facility] Start: 06-25-2024 Vital signs measurements [facility] Start: 06-25-2024 End: 06-25-2024 [facility] Start: 06-24-2024 End: 06-25-2024 [facility] Start: 06-24-2024 Referral to wreath maker [facility] Start: 06-24-2024 Wound care [facility] Start: 06-24-2024 Care regimes management [facility] Start: 06-24-2024 Notification of physician [facility] Start: 06-24-2024 Consultation for treatment [facility] Start: 06-24-2024 Following clinical p athway protocol [facility] Start: 06-24-2024 Following clinical p athway protocol [facility] Start: 06-24-2024 Assessment of risk o f venous thromboembolism [facility] Start: 06-24-2024 Catheterization of vein [facility] Start: 06-24-2024 Continuous pulse oximetry [facility] Start: 06-24-2024 Insertion of cathete r into peripheral vein [facility] Start: 06-24-2024 Measuring intake and output [facility] Start: 06-24-2024 Notification of physician [facility] Start: 06-24-2024 Patient referral to dietitian [facility] Start: 06-24-2024 Providing care accor ding to standard [facility] Start: 06-24-2024 Referral to occupati onal therapist [facility] Start: 06-24-2024 Referral to service [facility] Start: 06-24-2024 Speech therapy assessment [facility] Start: 06-24-2024 Vital signs measurements [facility] Start: 06-24-2024 Admission procedure [facility] Start: 05-25-2024 [facility] Start: 01-05-2022 Patient discharge [facility] Work Phone: Start: 01-05-2022 Anes integ musc & nr v head neck&posterior trunk ANESTH HEAD/NECK/PTRUNK [facility] Work Phone: Start: 01-05-2022 Exc b9 lesion mrgn x cp sk tg t/a/l >4.0 cm EXC TR-EXT B9+CLAY >4.0 CM [facility] Work Phone: Start: 01-05-2022 Repair intermediate s/a/t/e 7.6-12.5 cm INTMD RPR S/TR/EXT 7.6-12.5 [facility] Work Phone: Start: 11-29-2021 [facility] Work Phone: CT Chest WO contrast [facility] CT Chest WO contrast [facility] Lipid 1996 panel - S bianca or Plasma [facility] Magnesium measurement [facility] Measurement of respi ratory function [facility] Microbial culture, routine Wound Culture [facility] Work Phone: Patient Education [facility] Work Phone: Patient referral [facility] Work Phone: Troponin T.cardiac [Mass/volume] in Serum or Plasma by High sensitivity method [facility] Walking distance 6 minutes [facility] Immunizations Immunization Date Immunization Notes Care Provider [facility] 06-26-2024 influenza virus vaccine, unspecified formulation DR SEDRICK ALEXANDER MD [facility] 06-26-2024 influenza, high dose seasonal, preservative-free Dr. Jessi Olguin MD Work Phone: [facility] 03-13-2023 influenza virus vaccine, unspecified formulation DR SEDRICK ALEXANDER MD [facility] 03-13-2023 influenza, injectabl e, quadrivalent, preservative free Dr. Jessi Olguin Work Phone: [facility] 01-27-2021 SARS-CoV-2 mRNA (tozinameran) vaccine DR SEDRICK ALEXANDER MD [facility] 01-06-2021 SARS-CoV-2 mRNA (tozinameran) vaccine DR SEDRICK ALEXANDER MD [facility] 02-02-[address] Jessi Olguin Work Phone: [facility] 01-11-2020 tetanus toxoid, redu barry diphtheria toxoid, and acellular pertussis vaccine, adsorbed DR SEDRICK ALEXANDER MD [facility] 03-13-2018 influenza virus vaccine, unspecified formulation DR SEDRICK ALEXANDER MD [facility] 04-08-2017 influenza virus vaccine, unspecified formulation DR SEDRICK ALEXANDER MD [facility] 03-30-2016 influenza virus vaccine, unspecified formulation DR SEDRICK ALEXANDER MD [facility] 05-17-2014 influenza virus vaccine, unspecified formulation DR SEDRICK ALEXANDER MD [facility] 03-20-2013 influenza virus vaccine, unspecified formulation DR SEDRICK ALEXANDER MD [facility] 03-19-2012 influenza virus vaccine, unspecified formulation DR SEDRICK ALEXANDER MD [facility] Payers Date Payer Category Payer Private Health Insurance [id number] 2024 Medicare [id number] 2024 Self-pay [id number] 2018 Medicare [id number] 2018 Private Health Insurance [id number] 2014 Private Health Insurance [id number] 2011 Medicare [id number] 1950 Unknown [id number] 2.16.8 40.1.242246.3.579.2.627 1950 Unknown [id number] 2.16.8 40.1.638294.3.579.2.627 1950 Unknown [id number] 2.16.8 40.1.639967.3.579.2.627 Unknown [id number] 2.16.8 40.1.304210.3.579.2.462 Unknown [id number] 2.16.8 40.1.207210.3.579.2.462 Unknown [id number] 2.16.8 40.1.587189.3.579.2.462 Unknown [id number] 2.16.8 40.1.158650.3.579.2.462 Unknown [id number] 2.16.8 40.1.806616.3.579.2.462 Unknown [id number] 2.16.8 40.1.949470.3.579.2.462 Unknown [id number] 2.16.8 40.1.177077.3.579.2.462 Unknown [id number] 2.16.8 40.1.099289.3.579.2.462 Unknown [id number] 2.16.8 40.1.681109.3.579.2.462 Unknown [id number] 2.16.8 40.1.076997.3.579.2.462 Unknown [id number] 2.16.8 40.1.053679.3.579.2.462 Unknown [id number] 2.16.8 40.1.855116.3.579.2.462 Unknown [id number] 2.16.8 40.1.786090.3.579.2.462 Unknown [id number] 2.16.8 40.1.219311.3.579.2.462 Unknown [id number] 2.16.8 40.1.833716.3.579.2.462 Unknown [id number] 2.16.8 40.1.844846.3.579.2.462 Unknown [id number] 2.16.8 40.1.514365.3.579.2.462 Unknown [id number] 2.16.8 40.1.075989.3.579.2.462 Unknown [id number] 2.16.8 40.1.780172.3.579.2.462 Unknown [id number] 2.16.8 40.1.827442.3.579.2.462 Unknown [id number] 2.16.8 40.1.280680.3.579.2.462 Unknown [id number] 2.16.8 40.1.235918.3.579.2.462 Unknown [id number] 2.16.8 40.1.973881.3.579.2.462 Unknown [id number] 2.16.8 40.1.623343.3.579.2.462 Unknown [id number] 2.16.8 40.1.034859.3.579.2.462 Unknown [id number] 2.16.8 40.1.502648.3.579.2.462 Unknown [id number] 2.16.8 40.1.290138.3.579.2.462 Unknown [id number] 2.16.8 40.1.002387.3.579.2.462 Unknown [id number] 2.16.8 40.1.617812.3.579.2.462 Unknown [id number] 2.16.8 40.1.720190.3.579.2.462 Unknown [id number] 2.16.8 40.1.312186.3.579.2.462 Unknown [id number] 2.16.8 40.1.853009.3.579.2.462 Unknown [id number] 2.16.8 40.1.916897.3.579.2.462 Unknown [id number] 2.16.8 40.1.350618.3.579.2.462 Unknown [id number] 2.16.8 40.1.878340.3.579.2.462 Unknown [id number] 2.16.8 40.1.547082.3.579.2.462 Unknown [id number] 2.16.8 40.1.157750.3.579.2.462 Unknown [id number] 2.16.8 40.1.453134.3.579.2.462 Unknown [id number] 2.16.8 40.1.250067.3.579.2.462 Unknown [id number] 2.16.8 40.1.670642.3.579.2.462 Unknown [id number] 2.16.8 40.1.027780.3.579.2.462 Unknown [id number] 2.16.8 40.1.951189.3.579.2.462 Unknown [id number] 2.16.8 40.1.039249.3.579.2.462 Social History Date Type Detail Facility Start: 10-05-2021 End: 03-13-2023 Tobacco smoking status NHIS Unknown if ever smoked [facility] Start: 08-14-2020 None [facility] Start: 08-14-2020 Spouse/ Signif icant Other [facility] Start: 02-13-2020 Cigarettes [facility] Start: 1950 Sex Assigned At Male [facility] Start: 06-27-2024 Tobacco smoking status Heavy t obacco smoker (finding) [facility] Start: 09-01-2024 End: 11-14-2024 Tobacco smoking status Ex-smoker (finding) [facility] Sexual Orientation [facility] Start: 04-27-2019 End: 09-10-2024 Sex Male (finding) [facility] Medical Equipment Procedure Code Equipment Code [...] FDA Start: 10-31-2018 Kyphoplasty FDA Start: 10-31-2018 [id number] FDA Start: 06-25-2024 Blood Sugar Diagnostic (True Metrix Glucose Test Strip) strip Start: 11-10-2024 Blood Sugar Diagnostic (True Metrix Glucose Test Strip) strip Start: 11-10-2024 Blood Sugar Diagnostic (True Metrix Glucose Test Strip) strip Start: 11-10-2024 Goals Date Patient Goal Desired Activity /State Functional Status Date Assessment Result Facility 11-18-2024 Functional status Ambulates [facility] Work Phone: 09-03-2024 Functional status Ambulates;Bathroom Priv ilege [facility] Work Phone: 07-01-2024 Functional Status Mod A [facility] 07-01-2024 Functional Status [facility] 07-01-2024 Functional Status 7am-3pm [facility] 07-01-2024 Functional Status [facility] 06-30-2024 Functional Status [facility] 06-30-2024 Functional Status [facility] 06-30-2024 Functional Status NPO Status Maintained A [facility] 06-30-2024 Functional Status [facility] 06-30-2024 Functional Status left knee high removed/ off [facility] 06-30-2024 Functional Status [facility] 06-30-2024 Functional Status [facility] 06-29-2024 Functional Status [facility] 06-29-2024 Functional Status Mod A [facility] 06-29-2024 Functional [facility] Functional Status [facility] 06-29-2024 Functional Status Patient refused [facility] 06-29-2024 Functional Status [facility] 06-28-2024 Functional Status Afternoon Snack Percent 100 [facility] 06-28-2024 Functional Status [facility] 06-28-2024 Functional Status [facility] 06-27-2024 Functional Status 55 [facility] 06-26-2024 Functional status Bedrest [facility] Work Phone: Mental Status Date Assessment Result Facility 11-18-2024 Cognitive function Voice/Name [facility] Work Phone: 09-03-2024 Cognitive function Voice/Name [facility] Work Phone: 09-01-2024 Cognitive function Level Of Cons ciousness Awake;Alert;Appropriate;Follow s Commands [facility] Work Phone: 07-01-2024 Mental Status Orientation Oriented x 4 [facility] 07-01-2024 Mental Status [facility] 06-30-2024 Mental Status [facility] 06-30-2024 Mental Status [facility] 06-27-2024 Cognitive function Voice/Name [facility] Work Phone: 01-05-2022 Cognitive function Awake [facility] Work Phone: Clinical Notes 02-14-2023 to 12-03-2024 Note Date & Type Note Facility 12-03-2024 Radiology Diagnostic study note [facility] Imaging Services [address] [place] [address] Chest without Contrast MR#: [id number] Acct: [id number] Name: ARMIN TURCIOS Rep #: [id number] : 1950 M 74 From: Davina Gonzalez MD PCP: Dr. Jessi Olguin MD Status: REG CLI Study:Chest without Contrast Date of Exam: 12/01/24 Exam# [id number] Ordering Dr: Michelle Graham MAINTENANCE AND UTILITIES SUPERVISOR-C PROCEDURE: CHEST WITHOUT CONTRAST 12/01/2024 REASON FOR EXAM: HISTORY OF PNEUMONIA 09/02/24, QUIT SMOKING 2009 TECHNIQUE: Chest CT without contrast. Coronal and Sagittal reconstruction series were provided. One or more dose reduction techniques were used (e.g., Automated exposure control, adjustment of the mA and/or kV according to patient size, use of iterative reconstruction technique RADIATION DOSE SUMMARY: CTDlvol: 15 mGy DLP: 491 mGycm COMPARISON: 09/02/2024, abdominal CT 09/11/2018 FINDINGS: Central airways are patent. Mild emphysema. No pneumothorax. Interval resolution of small left effusion. On the left, clearing of posterior lower lobe atelectasis. Clearing of multifocal areas of upper lobe peripheral consolidation. Persistent peripheral reticulation and ground-glass opacity, likely chronic change. On the right, improved left lower lobe aeration. Partial clearing of most of right upper lobe consolidative airspace disease with residual. Small middle lobe atelectasis. Unremarkable base of neck and axilla. Mild cardiac enlargement. No acute vascular pathology. Mediastinal adenopathy likely reactive. Thoracic spine scoliosis and degeneration. Status post kyphoplasty at T12. Old L1 compression deformity. Worsening T8 vertebral body compression deformity. Healing sternal fracture. Left-sided cardiac device. Multiple old rib fractures. 2 cm left adrenal nodule, not meeting criteria for benign adenoma, and not seen in 2019. Recommend adrenal protocol CT. No acute upper abdominal findings. CT/Chest without Contrast IMPRESSION: Significant interval improvement in bilateral airspace disease, with some residual mainly in the periphery of the right upper lobe. Continued posttreatment progress imaging recommended. Resolution of small left effusion. Worsening T8 vertebral body compression deformity. Consider kyphoplasty. Indeterminate 2 cm left adrenal nodule. Recommend adrenal protocol CT. Reading Location: [place] [address] CC: Dr. Jessi Olguin MD; Michelle Graham NP ~ Operations Label Clerk: Signed [facility] 11-18-2024 Discharge summary Note Date/Time November 18, 2024 10:18am [facility] Medical Records Department [address] [facility] [place] [address] Discharge Summary 11/18/24 0931 MR#: [id number] Acct: [id number] Name: ARMIN TURCIOS Rep #:[id number] : 1950 74 From: Osmar Hayden PCP: Dr. Jessi Olguin MD Status:ADM IN Location: [place] [address] Providers Date of Admission: 11/14/24 Date of Discharge: 11/18/24 Primary Care Physician: Dr. Jessi Olguin MD Consultations 11/14/24 13:32 Consult: Cardiology Routine Consulting Provider: Judson Isabel Reason for Consult: v tach, ICD firing EMERGENT Consult: No MD Notified: Yes Date Notified: 11/14/24 Time Notified: 13:19 Method of Notification: Text Reason For Visit: INTERMITTENT V TACH Diagnosis Discharge Diagnosis (1) V tach: Status: Acute Code(s): I47.20 - Ventricular tachycardia, unspecified (2) Atrial fibrillation: Status: Acute Code(s): I48.91 - Unspecified atrial fibrillation (3) Single implantable cardioverter-defibrillator (ICD) in situ: Status: Acute Code(s): Z95.810 - Presence of automatic (implantable) cardiac defibrillator (4) Coronary artery disease: Status: Acute Code(s): I25.10 - Atherosclerotic heart disease of [place] coronary artery without angina pectoris Plan This 74 old gentleman was admitted with multiple AICD firing at home. Denied any chest pain. He was admitted in PCU and started on IV amiodarone drip #Chest pain in the setting of ICD firing * Admit to PCU. Patient has an ICD in situ and states on the day of admission he went to use the bathroom and got lightheaded when standing up. His ICD started going off and firing * He therefore called the EMS and came into the ED. EMS noticed the patient was in intermittent ventricular tachycardia * Patient has his ICD inserted in June 2024. He does not does not seem to be on any antiarrhythmics. * EKG showed a paced rhythm. * Troponins 28, 77 and 165 * ICD interrogated showed multiple episodes of ventricular tachycardia and ventricular fibrillation. 11/16: Echo shows EF 60% with right and left atrium moderately enlarged. Normal LV size. Plan for heart cath amiodarone drip changed to amiodarone oral 200 mg twice daily 11/17: Patient had cardiac catheter today. Patient currently in A-fib with ventricular pacing. AICD interrogation was reviewed. Plan for changing IV amiodarone to oral route. Resume Xarelto tomorrow. Serum potassium 3.8. Magnesium 1.8. TSH low, free T4 ordered. Cardiac cath was negative for significant obstructive CAD. laboratory monitor showed long run of wide-complex tachycardia yesterday but seems more LBBB morphology but V. tach could not be ruled. He did not get AICD firing. 11/18: Patient discharged on amiodarone 200 mg twice daily and metoprolol succinate 50 mg daily after discussion with the wreath maker. Follow-up in the cardiology office. Continue rest of the medications. Hydroxyzine discontinued because of severe QT prolonging interaction with amiodarone. #Type 2 diabetes mellitus: * On Lantus 10 units daily. * InsulinSliding scale. Checks ACHS. 11/18: Patient has hyperglycemia Lantus dose increased to 15 units subcutaneous daily and will log insulin dose increased to 17 units twice daily with meal #Atrial fibrillation: Status post pacemaker. On Xarelto and metoprolol #History of CAD: Status post stents. #Benign essential hypertension: On metoprolol #Heart failure preserved ejection fraction: Not in exacerbation. On p.o. Lasix. #Hyperlipidemia: On statin #Hypothyroidism: On Synthroid. #Depression: On venlafaxine DVT prophylaxis: Already on Xarelto CODE STATUS: Full code Discharge medication reconciliation done. Discharge follow-up instructions completed. Discharge process discussed with the patient and all questions wereanswered to patient's satisfaction. Follow with PCP in 1 to 2 weeks Total time spent, exact 35 minutes on discharge meds reconciliation, examination, coordination of care with nurses and ancillary staff, review of imaging and blood test and discussion with the patient on follow-up instructions. Laboratory Results 11/16/24 14:34: APTT 51.4 H 11/16/24 16:07: POC Glucose 104 11/16/24 21:43: POC Glucose 150 H 11/16/24 23:19: APTT 72.7 H 11/17/24 06:03: WBC 5.0, RBC 3.60 L, Hgb 10.5 L, Hct 31.8 L, MCV 88.3, MCH 29.2,MCHC 33.0, RDW Std Deviation 45.0 H, RDW Coeff of Marifer 13.9, Plt Count TNP, MPV TNP, Immature Gran % (Auto) 0.400, Neut % (Auto) 52.2, Lymph % (Auto) 32.1, Zapata% (Auto) 11.7 H, Eos % (Auto) 3.2, Baso % (Auto) 0.4, Absolute Neuts (auto) 2.6,Absolute Lymphs (auto) 1.62, Nucleated RBC % 0, Differential Comment SCANNED, Platelet Estimate ADEQUATE, Plt Morphology Comment CLUMPED, APTT 70.1 H, Sodium 135, Potassium 3.8, Chloride 101, Carbon Dioxide 24.1, Anion Gap 10, BUN 22 H, Creatinine 0.98, Estim Creat Clear Calc 78.73, Est GFR (MDRD) Non-Af 80, BUN/Creatinine Ratio 22.9 H, Glucose 183 H, Calcium 9.0, Magnesium 1.8, TSH 0.228L 11/17/24 11:42: POC Glucose 201 H Clinical Impression(s) from Imaging Studies Chest X-Ray 11/14/24 10:37 IMPRESSION: No acute process. Bochdalek's hernia. Echocardiogram 11/15/24 13:38 Interpretation Summary The left ventricular ejection fraction is 60 %. Normal LV size. The left atrium is moderately enlarged. The right atrium is moderately enlarged. ICD or pacer leads identified within the right ventricle. Contrast injection was performed. The study was technically limited. Medications at Discharge Home Medications metformin 500 mg tablet,extended release 24 hr 1,000 mg PO DAILY diabetes 03/02/20 PEP device #1 ea 11/14/21 ferrous sulfate 325 mg (65 mg iron) tablet 325 mg PO DAILY supplement 01/02/22 acetaminophen 500 mg tablet 1,000 mg PO Q8H PRN pain 08/03/24 buspirone 7.5 mg tablet 7.5 mg PO BID mental health 08/03/24 lisinopril 5 mg tablet 5 mg PO DAILY bp 08/03/24 atorvastatin 40 mg tablet 40 mg PO QHS cholesterol 09/01/24 clopidogrel 75 mg tablet 75 mg PO DAILY anti platelet 09/01/24 levothyroxine 175 mcg tablet 175 mcg PO DAILY thyroid 09/01/24 rivaroxaban 20 mg tablet 20 mg PO DAILY 09/01/24 venlafaxine 75 mg capsule,extended release 24 hr 75 mg PO DAILY mental health 09/01/24 furosemide 40 mg tablet (Lasix) 40 mg PO DAILY diuretic #60 tabs 09/03/24 acetylcysteine 600 mg capsule 600 mg PO BID 09/21/24 ascorbic acid (vitamin C) 500 mg tablet 500 mg PO DAILY vitamin 09/21/24 cholecalciferol (vitamin D3) 25 mcg (1,000 unit) tablet (Vitamin D3) 25 mcg PO DAILY vitamin 09/21/24 blood sugar diagnostic (True Metrix Glucose Test Strip) #10 ea 11/10/24 amiodarone 200 mg tablet 200 mg PO BID 1 month #60 tabs 11/18/24 insulin glargine 100 unit/mL (3 mL) subcutaneous pen (Lantus Solostar U-100 Insulin) 15 unit (0.15 mL) subcut DAILY 30 days #0 mL 11/18/24 insulin lispro 100 unit/mL subcutaneous pen (Humalog KwikPen (U-100) Insulin) 17unit (0.17 mL) subcut BIDAC 30 days #0 mL 11/18/24 magnesium chloride 64 mg (magnesium chloride) tablet,delayed release (Mag 64) 128 mg (2 x 64 mg) PO DAILY 1 month #60 tabs 11/18/24 metoprolol succinate 50 mg tablet,extended release 24 hr 50 mg PO DAILY 30 days #30 tabs 11/18/24 Physical Exam Narrative Seen and examined. Patient does not have any symptoms. laboratory monitor shows paced rhythm. Discussed with the wreath maker Tim 1 PCI in June 2024. Denies chest pain or shortness of breath or syncope. Physical exam General: Alert, Oriented x3, Cooperative HEENT: Moderate hearing loss. Atraumatic, PERRLA, EOMI, Normocephalic. Oral: No Gingival or Mucosal Lesions/ Ulcerations Neck: Supple, No JVD, Negative Carotid Bruits Chest wall/Lungs: Air entry diminished in bilateral lung bases. No crepitation/rhonchi Cardiovascular: Paced rhythm, Normal S1,S2, systolic murmur LLSB. Left upper chest AICD Abdomen: Bowel Sounds Present, Soft, Non Tender, Non-Distended : No dysuria. No renal angle tenderness. No suprapubic tenderness. Extremities: No edema, Capillary Refill Less than 3 Seconds Skin: No rashes, No breakdown Musculoskeletal: No Tenderness to Palpation of Joints or Extremities Neurological: Cranial nerves II-XII grossly intact, DTR 2+/4. No acute focal neurological deficit. Psych/Mental Status: Normal Affect, Appropriate. Weight / BMI Weight Weight: 222 lb 8 oz Body Mass Index (BMI) 27.1 ABG / Lab / Microbiology Data 11/18/24 05:59 11/18/24 05:59 Laboratory: Laboratory Results - last 24 hr 11/17/24 06:03: Free T4 1.50 H 11/17/24 11:42: POC Glucose 201 H 11/17/24 16:07: POC Glucose 351 H 11/17/24 22:30: POC Glucose 180 H 11/18/24 05:59: WBC 6.6, RBC 3.91 L, Hgb 11.6 L, Hct 34.5 L, MCV 88.2, MCH 29.7,MCHC 33.6, RDW Std Deviation 44.7 H, RDW Coeff of Marifer 13.8, Plt Count TNP, Immature Gran % (Auto) 0.500, Neut % (Auto) 66.6, Lymph % (Auto) 22.0, [place] % (Auto) 8.5, Eos % (Auto) 2.1, Baso % (Auto) 0.3, Absolute Neuts (auto) 4.4, Absolute Lymphs (auto) 1.45, Nucleated RBC % 0, Platelet Estimate ADEQUATE, PT 20.0 H, INR 1.7, APTT 39.8 H, Sodium 134, Potassium 3.9, Chloride 102, Carbon Dioxide 22.1, Anion Gap 11, BUN 26 H, Creatinine 0.95, Estim Creat Clear Calc 81.22, Est GFR (MDRD) Non-Af 83, BUN/Creatinine Ratio 27.2 H, Glucose 184 H, Calcium 9.2 D/C Instructions DC O2, CPAP, BIPAP Needs Home O2 Discharge instructions: No Meaningful Use Info Meaningful Use Meaningful Use Diagnoses (Choose all that apply): None applicable Ischemic Stroke Statin Dosing Therapy Reference: STATIN DOSE THERAPY REFERENCE: * Patients > 75 years receive moderate or high dose statin therapy. * Patients 75 years or YOUNGER should receive HIGH intensity statin dose unless contraindicated. You will be required to document reason for non-treatment if statin daily dose does not meet guidelines. HIGH DOSE STATIN THERAPY DAILY Atorvastatin > than or = to 40 mg Rosuvastatin > than or = to 20 mg Amlodipine + Atorvastatin > than or = to 2.5/40 mg Ezetimibe + Simvastatin 10/80 mg Simvastatin 80mg Discharge Plan Admission Admit Date/Time: 11/14/24 12:55 Primary Reason for Your Visit: AICD firing Attending Provider: Osmar Brown Primary Care Provider: Jessi Olguin Consulting Providers: Judson Isabel; Erin Morris Instructions Additional Instructions / Restrictions: Hydroxyzine discontinued because of severe QT prolongation interaction with amiodarone Discharge Orders/Prescriptions Prescriptions: New magnesium chloride [Mag 64] 64 mg Tablet,Delayed Release (Dr/Ec) 128 mg PO DAILY 30 Days Qty: 60 2RF metoprolol succinate 50 mg Tablet Extended Release 24 Hr 50 mg PO DAILY 30 Days Qty: 30 3RF amiodarone 200 mg tablet 200 mg PO BID 30 Days Qty: 60 2RF Continued metformin 500 mg tablet extended release 24 hr 1,000 mg PO DAILY (DME) PEP device See Rx Instructions .Route .MEDSUPPLY Qty: 1 0RF Rx Instructions: with training venlafaxine 75 mg capsule,extended release 24hr 75 mg PO DAILY levothyroxine 175 mcg tablet 175 mcg PO DAILY buspirone 7.5 mg tablet 7.5 mg PO BID lisinopril 5 mg tablet 5 mg PO DAILY acetaminophen 500 mg tablet 1,000 mg PO Q8H PRN (Reason: pain) (DME) True Metrix Glucose Test Strip Strip See Rx Instructions .ROUTE QDAY Qty: 10 Rx Instructions: As directed ferrous sulfate 325 mg (65 mg iron) Tablet 325 mg PO DAILY atorvastatin 40 mg tablet 40 mg PO QHS clopidogrel 75 mg tablet 75 mg PO DAILY rivaroxaban 20 mg tablet 20 mg PO DAILY Rx Instructions: must administer with evening meal furosemide [Lasix] 40 mg tablet 40 mg PO DAILY Qty: 60 0RF ascorbic acid (vitamin C) 500 mg tablet 500 mg PO DAILY cholecalciferol (vitamin D3) [Vitamin D3] 25 mcg (1,000 unit) tablet 25 mcg PO DAILY acetylcysteine 600 mg capsule 600 mg PO BID Changed insulin lispro [Humalog KwikPen Insulin] 100 unit/mL insulin pen 17 unit SUBCUT BIDAC 30 Days Qty: 0 0RF insulin glargine [Lantus Solostar U-100 Insulin] 100 unit/mL (3 mL) insulin pen 15 unit subcut DAILY 30 Days Qty: 0 0RF Discontinued hydroxyzine pamoate 50 mg capsule 50 mg PO BID metoprolol succinate 25 mg tablet extended release 24 hr 25 mg PO DAILY Referrals / Follow Up: Judson Isabel MD [Med Staff - Active Staff] - Within 1 Month (Topstitcher [employer]ch called the office if they do not get back to you in 2-3 business days with an appointment, please call the office. ) Jessi Olguin MD [Primary Care Provider] - 12/01/24 1:40 pm Disposition Disposition (needs filled in before D/C Order can be placed): Home, Self Care Charges/Coding Visit Charges Inpatient E&M: 05365 Disch Hosp >30min 11/18/24 1018 <Electronically signed by Osmar Brown MD> Cosigner Signature (if applicable): CC: Dr. Jessi Olguin MD; Dr. Osmar Brown MD~ Signed [facility] Work Phone: [phone] 440-112306-18-2025 Discharge summary Author Osmar Brown [facility] Note Date/Time November 18, 2024 9:31 am [facility] Medical Records Department [address] [place] [address] [place] [address] Instructions for Home/Discharge Instructions 11/18/24 0920 MR#: [id number] Acct: [id number] Name: ARMIN TURCIOS Rep #:[id number] : 1950 74 From: Osmar Hayden PCP: Dr. Jessi Olguin MD Status:ADM IN Discharge Instructions DC O2, CPAP, BIPAP needs Home O2 Discharge instructions: No Follow Up Care Test Results: Test results from this visit will be discussed in further detail at your follow- up appointment, if applicable. Discharge Plan Admission Admit Date/Time: 11/14/24 12:55 Primary Reason for Your Visit: AICD firing Attending Provider: Osmar Brown Primary Care Provider: Jessi Olguin Consulting Providers: Judson Isabel; Erin Morris Instructions Additional Instructions / Restrictions: Hydroxyzine discontinued because of severe QT prolongation interaction with amiodarone Discharge Orders/Prescriptions Prescriptions: New magnesium chloride [Mag 64] 64 mg Tablet,Delayed Release (Dr/Ec) 128 mg PO DAILY 30 Days Qty: 60 2RF metoprolol succinate 50 mg Tablet Extended Release 24 Hr 50 mg PO DAILY 30 Days Qty: 30 3RF amiodarone 200 mg tablet 200 mg PO BID 30 Days Qty: 60 2RF Continued metformin 500 mg tablet extended release 24 hr 1,000 mg PO DAILY (DME) PEP device See Rx Instructions .Route .MEDSUPPLY Qty: 1 0RF Rx Instructions: with training venlafaxine 75 mg capsule,extended release 24hr 75 mg PO DAILY levothyroxine 175 mcg tablet 175 mcg PO DAILY buspirone 7.5 mg tablet 7.5 mg PO BID lisinopril 5 mg tablet 5 mg PO DAILY acetaminophen 500 mg tablet 1,000 mg PO Q8H PRN (Reason: pain) (DME) True Metrix Glucose Test Strip Strip See Rx Instructions .ROUTE QDAY Qty: 10 Rx Instructions: As directed ferrous sulfate 325 mg (65 mg iron) Tablet 325 mg PO DAILY atorvastatin 40 mg tablet 40 mg PO QHS clopidogrel 75 mg tablet 75 mg PO DAILY rivaroxaban 20 mg tablet 20 mg PO DAILY Rx Instructions: must administer with evening meal furosemide [Lasix] 40 mg tablet 40 mg PO DAILY Qty: 60 0RF ascorbic acid (vitamin C) 500 mg tablet 500 mg PO DAILY cholecalciferol (vitamin D3) [Vitamin D3] 25 mcg (1,000 unit) tablet 25 mcg PO DAILY acetylcysteine 600 mg capsule 600 mg PO BID Changed insulin lispro [Humalog KwikPen Insulin] 100 unit/mL insulin pen 17 unit SUBCUT BIDAC 30 Days Qty: 0 0RF insulin glargine [Lantus Solostar U-100 Insulin] 100 unit/mL (3 mL) insulin pen 15 unit subcut DAILY 30 Days Qty: 0 0RF Discontinued hydroxyzine pamoate 50 mg capsule 50 mg PO BID metoprolol succinate 25 mg tablet extended release 24 hr 25 mg PO DAILY Referrals / Follow Up: Judson Isabel MD [Med Staff - Active Staff] - Within 1 Month Jessi Olguin MD [Primary Care Provider] - Disposition Disposition (needs filled in before D/C Order can be placed): Home, Self Care 11/18/24 0931<Electronically signed by Osmar Brown MD>Osmar Brown MD CC: Dr. Judson Isabel MD; Dr. Jessi Olguin MD; Dr. Erin Morris MD ~ Signed [facility] Work Phone: [phone] Progress note Author Judson Isabel [facility] Note Date/Time November 18, 2024 7:36 am [facility] Medical Records Department [facility] [place] [address] Progress Note - Cardiology 11/18/24 0734 MR#: [id number] Acct: [id number] Name: ARMIN TURCIOS Rep #:[id number] : 1950 74 From: Judson Isabel MD PCP: Dr. Jessi Olguin MD Status:ADM IN Location: [place] [address] Subjective Subjective Patient seen and evaluated. Doing much better this morning no complaints. Objective Data Vital Signs: Vital Signs Temp Pulse Resp BP Pulse Ox O2 Del Method 98.1 F 78 20 H 110/66 96 Room Air 11/18/24 06:00 11/18/24 06:00 11/18/24 06:00 11/18/24 06:00 11/18/24 06:00 11/18/24 06:00 Oxygen Delivery Method Room Air Weight: 222 lb 8 oz Body Mass Index (BMI) 27.1 Intake & Output: Intake and Output for Last 24 Hours 11/16/24 11/17/24 11/18/24 23:59 23:59 23:59 Intake Total 1799.43 / 1816.13 1429.91 / 1546.61 233.4 / 233.4 Output Total 1050 / 1050 700 / 1000 800 / 800 Balance 749.43 / 766.13 729.91 / 546.61 -566.6 / -566.6 Lab / Micro Data 11/18/24 05:59 11/18/24 05:59 Labs: Laboratory Results - last 24 hr 11/17/24 06:03: Magnesium 1.8, Free T4 1.50 H 11/17/24 11:42: POC Glucose 201 H 11/17/24 16:07: POC Glucose 351 H 11/17/24 22:30: POC Glucose 180 H 11/18/24 05:59: WBC 6.6, RBC 3.91 L, Hgb 11.6 L, Hct 34.5 L, MCV 88.2, MCH 29.7,MCHC 33.6, RDW Std Deviation 44.7 H, RDW Coeff of Marifer 13.8, Plt Count TNP, Immature Gran % (Auto) 0.500, Neut % (Auto) 66.6, Lymph % (Auto) 22.0, Zapata % (Auto) 8.5, Eos % (Auto) 2.1, Baso % (Auto) 0.3, Absolute Neuts (auto) 4.4, Absolute Lymphs (auto) 1.45, Nucleated RBC % 0, Platelet Estimate ADEQUATE, PT 20.0 H, INR 1.7, APTT 39.8 H, Sodium 134, Potassium 3.9, Chloride 102, Carbon Dioxide 22.1, Anion Gap 11, BUN 26 H, Creatinine 0.95, Estim Creat Clear Calc 81.22, Est GFR (MDRD) Non-Af 83, BUN/Creatinine Ratio 27.2 H, Glucose 184 H, Calcium 9.2 Rhythm Strip Rhythm Strip: Paced Rate: 96 Ectopy: None Cardiology Labs/Tests 11/17/24 06:03: Magnesium 1.8 11/18/24 05:59: WBC 6.6, RBC 3.91 L, Hgb 11.6 L, Hct 34.5 L, MCV 88.2, MCH 29.7,MCHC 33.6, Plt Count TNP, Immature Gran % (Auto) 0.500, Neut % (Auto) 66.6, Lymph % (Auto) 22.0, [place]apata % (Auto) 8.5, Eos % (Auto) 2.1, Baso % (Auto) 0.3, Absolute Neuts (auto) 4.4, Nucleated RBC % 0, PT 20.0 H, INR 1.7, APTT 39.8 H, Sodium 134, Potassium 3.9, Chloride 102, Carbon Dioxide 22.1, Anion Gap 11, BUN 26 H, Creatinine 0.95, Est GFR (MDRD) Non-Af 83, BUN/Creatinine Ratio 27.2 H, Glucose 184 H, Calcium 9.2 Rhythm: EKG: ECHO: Stress Test: Cardiac Cath: PCI: CT Surgery: Holter monitor: EPS: PPM: CXR: Chest CT Scan: Physical Exam Const alert, oriented x3 and no apparent distress General Appearance: cooperative HEENT hearing grossly normal bilaterally Head and Scalp: atraumatic Eyes EOMs intact bilaterally Neck General: normal visual inspection Chest inspection of chest normal and palpation of chest normal Resp normal respiratory effort Auscultation: clear to auscultation bilaterally Cardio regular rate, regular rhythm, S1 normal heart sound and S2 normal heart sound Jugular Venous Distention: JVD GI normal to inspection, nondistended, normoactive bowel sounds Extremity normal capillary refill and no pedal edema Peripheral Pulses: Yes pulses 2+ throughout and femoral pulses present Skin no rashes or lesions noted Neuro oriented x3 and CN's II-XII intact bilaterally Psych Appearance: grossly normal and appropriate Assessment & Plan Assessment/Plan (1) V tach: PLAN: Patient presented with multiple appropriate ICD discharges. Currently on intravenous amiodarone. Cardiac catheterization demonstrated patency of all 3 coronary arteries and preserved ejection fraction. Will plan on continuing p.o. amiodarone as well as the beta-anthony. (2) Atrial fibrillation: PLAN: Currently in atrial fibrillation with ventricular pacing. Will continue beta-anthony and amiodarone Will resume Xarelto (3) Single implantable cardioverter-defibrillator (ICD) in situ: PLAN: Single ICD implantation. Appropriate discharge for VT noted. (4) Coronary artery disease: PLAN: Patient with known history of coronary artery disease status post PCI of the right coronary artery. Cardiac catheterization demonstrated patency of the above. Preserved ejection fraction noted. No need for intervention at this time. 11/18/24 0736 <Electronically signed by Judson Isabel MD> Cosigner Signature (if applicable): CC: ~ Signed [facility] Work Phone: 1(727) 913-774506-18-2025 [facility]06-17-2025 Progress note Author Osmar Brown [facility] Note Date/Time November 17, 2024 1:36 pm [facility] Medical Records Department [address] [place] [address] Progress Note - Hospitalist 11/17/24 1326 MR#: [id number] Acct: [id number] Name: ARMIN TURCIOS Rep #:[id number] : 1950 74 From: Osmar Hayden PCP: Dr. Jessi Olguin MD Status:ADM IN Location: [place] [address] Reason for Visit Reason for Visit: Diagnoses Atherosclerotic heart disease of [place] coronary artery without angina pectoris (11/14/24) Ventricular tachycardia, unspecified (11/14/24) Unspecified atrial fibrillation (11/14/24) Presence of automatic (implantable) cardiac defibrillator (11/14/24) Objective Data Objective Data Vital Signs: Vital Signs Temp Pulse Resp BP Pulse Ox O2 Del Method 98.4 F 70 22 H 107/71 92 Room Air 11/17/24 08:20 11/17/24 13:07 11/17/24 12:00 11/17/24 13:01 11/17/24 13:01 11/17/24 12:30 Oxygen Delivery Method Room Air Weight: 222 lb 8 oz Body Mass Index (BMI) 27.1 Intake & Output: Intake and Output for Last 24 Hours 11/15/24 11/16/24 11/17/24 23:59 23:59 23:59 Intake Total 840.84 / 857.54 1799.43 / 1816.13 773.21 / 773.21 Output Total 675 / 675 1050 / 1050 500 / 500 Balance 165.84 / 182.54 749.43 / 766.13 273.21 / 273.21 Lab / Micro Data 11/17/24 06:03 11/17/24 06:03 Labs: Laboratory Results - last 24 hr 11/16/24 14:34: APTT 51.4 H 11/16/24 16:07: POC Glucose 104 11/16/24 21:43: POC Glucose 150 H 11/16/24 23:19: APTT 72.7 H 11/17/24 06:03: WBC 5.0, RBC 3.60 L, Hgb 10.5 L, Hct 31.8 L, MCV 88.3, MCH 29.2,MCHC 33.0, RDW Std Deviation 45.0 H, RDW Coeff of Marifer 13.9, Plt Count TNP, MPV TNP, Immature Gran % (Auto) 0.400, Neut % (Auto) 52.2, Lymph % (Auto) 32.1, Zapata% (Auto) 11.7 H, Eos % (Auto) 3.2, Baso % (Auto) 0.4, Absolute Neuts (auto) 2.6,Absolute Lymphs (auto) 1.62, Nucleated RBC % 0, Differential Comment SCANNED, Platelet Estimate ADEQUATE, Plt Morphology Comment CLUMPED, APTT 70.1 H, Sodium 135, Potassium 3.8, Chloride 101, Carbon Dioxide 24.1, Anion Gap 10, BUN 22 H, Creatinine 0.98, Estim Creat Clear Calc 78.73, Est GFR (MDRD) Non-Af 80, BUN/Creatinine Ratio 22.9 H, Glucose 183 H, Calcium 9.0, Magnesium 1.8, TSH 0.228L 11/17/24 11:42: POC Glucose 201 H Radiography Diagnostic Testing: Radiology Impression Echocardiogram 11/15/24 13:38 Interpretation Summary The left ventricular ejection fraction is 60 %. Normal LV size. The left atrium is moderately enlarged. The right atrium is moderately enlarged. ICD or pacer leads identified within the right ventricle. Contrast injection was performed. The study was technically limited. Ordering Physician: Johny Barclay Referring Physician: Jessi Olguin MD Performed By: Ernestine Duvall RCS Rhythm Strip Rhythm Strip: Paced Rate: 96 Ectopy: None Physical Exam Narrative Seen and examined. laboratory monitor shows paced rhythm. laboratory monitor showed long run of wide- complex tachycardia yesterday but seems more paced rhythm/LBBB morphology. Was admitted with multiple AICD firing/shock. Had 1 PCI in June 2024. Denies chest pain or shortness of breath or syncope. Physical exam General: Alert, Oriented x3, Cooperative HEENT: Moderate hearing loss. Atraumatic, PERRLA, EOMI, Normocephalic. Oral: No Gingival or Mucosal Lesions/ Ulcerations Neck: Supple, No JVD, Negative Carotid Bruits Chest wall/Lungs: Air entry diminished in bilateral lung bases. No crepitation/rhonchi Cardiovascular: Paced rhythm, Normal S1,S2, systolic murmur LLSB. Left upper chest AICD Abdomen: Bowel Sounds Present, Soft, Non Tender, Non-Distended : No dysuria. No renal angle tenderness. No suprapubic tenderness. Extremities: No edema, Capillary Refill Less than 3 Seconds Skin: No rashes, No breakdown Musculoskeletal: No Tenderness to Palpation of Joints or Extremities Neurological: Cranial nerves II-XII grossly intact, DTR 2+/4. No acute focal neurological deficit. Psych/Mental Status: Normal Affect, Appropriate. Assessment & Plan Assessment/Plan (1) V tach: PLAN: Plan #Chest pain in the setting of ICD firing * Admit to PCU. Patient has an ICD in situ and states on the day of admission he went to use the bathroom and got lightheaded when standing up. His ICD started going off and firing * He therefore called the EMS and came into the ED. EMS noticed the patient was in intermittent ventricular tachycardia * Patient has his ICD inserted in June 2024. He does not does not seem to be on any antiarrhythmics. * EKG showed a paced rhythm. * Troponins 28, 77 and 165 * ICD interrogated showed multiple episodes of ventricular tachycardia and ventricular fibrillation. 11/16: Echo shows EF 60% with right and left atrium moderately enlarged. Normal LV size. Plan for heart cath amiodarone drip changed to amiodarone oral 200 mg twice daily 11/17: Patient had cardiac catheter today. Patient currently in A-fib with ventricular pacing. AICD interrogation was reviewed. Plan for changing IV amiodarone to oral route. Resume Xarelto tomorrow. Serum potassium 3.8. Magnesium 1.8. TSH low, free T4 ordered. Cardiac cath was negative for significant obstructive CAD #Type 2 diabetes mellitus: * On Lantus 10 units daily. * InsulinSliding scale. Checks ACHS. #Atrial fibrillation: Status post pacemaker. On Xarelto and metoprolol #History of CAD: Status post stents. #Benign essential hypertension: On metoprolol #Heart failure preserved ejection fraction: Not in exacerbation. On p.o. Lasix. #Hyperlipidemia: On statin #Hypothyroidism: On Synthroid. #Depression: On venlafaxine DVT prophylaxis: Already on Xarelto CODE STATUS: Full code Laboratory Results 11/16/24 14:34: APTT 51.4 H 11/16/24 16:07: POC Glucose 104 11/16/24 21:43: POC Glucose 150 H 11/16/24 23:19: APTT 72.7 H 11/17/24 06:03: WBC 5.0, RBC 3.60 L, Hgb 10.5 L, Hct 31.8 L, MCV 88.3, MCH 29.2,MCHC 33.0, RDW Std Deviation 45.0 H, RDW Coeff of Marifer 13.9, Plt Count TNP, MPV TNP, Immature Gran % (Auto) 0.400, Neut % (Auto) 52.2, Lymph % (Auto) 32.1, Zapata% (Auto) 11.7 H, Eos % (Auto) 3.2, Baso % (Auto) 0.4, Absolute Neuts (auto) 2.6,Absolute Lymphs (auto) 1.62, Nucleated RBC % 0, Differential Comment SCANNED, Platelet Estimate ADEQUATE, Plt Morphology Comment CLUMPED, APTT 70.1 H, Sodium 135, Potassium 3.8, Chloride 101, Carbon Dioxide 24.1, Anion Gap 10, BUN 22 H, Creatinine 0.98, Estim Creat Clear Calc 78.73, Est GFR (MDRD) Non-Af 80, BUN/Creatinine Ratio 22.9 H, Glucose 183 H, Calcium 9.0, Magnesium 1.8, TSH 0.228L 11/17/24 11:42: POC Glucose 201 H Clinical Impression(s) from Imaging Studies Chest X-Ray 11/14/24 10:37 IMPRESSION: No acute process. Bochdalek's hernia. Echocardiogram 11/15/24 13:38 Interpretation Summary The left ventricular ejection fraction is 60 %. Normal LV size. The left atrium is moderately enlarged. The right atrium is moderately enlarged. ICD or pacer leads identified within the right ventricle. Contrast injection was performed. The study was technically limited. Charges/Coding Visit Charges Inpatient E&M: 14174 Subs Hosp L2 11/17/24 0486 <Electronically signed by Osmar Brown MD> Cosigner Signature (if applicable): CC: ~ Signed [facility] Work Phone: [phone] Progress note Author Judson Isabel [facility] Note Date/Time November 17, 2024 9:55 am [facility] Medical Records Department [address] [place] [address] Progress Note - Cardiology 11/17/24 0953 MR#: [id number] Acct: [id number] Name: ARMIN TURCIOS Rep #:[id number] : 1950 74 From: Judson Isabel MD PCP: Dr. Jessi Olguin MD Status:ADM IN Location: [place] [address] Subjective Subjective Patient seen and evaluated. Underwent cardiac catheterization today Objective Data Vital Signs: Vital Signs Temp Pulse Resp BP Pulse Ox O2 Del Method 98.4 F 73 18 130/71 H 95 Room Air 11/17/24 08:20 11/17/24 08:07 11/17/24 08:00 11/17/24 08:07 11/17/24 08:00 11/17/24 08:00 Oxygen Delivery Method Room Air Weight: 222 lb 8 oz Body Mass Index (BMI) 27.1 Intake & Output: Intake and Output for Last 24 Hours 11/15/24 11/16/24 11/17/24 23:59 23:59 23:59 Intake Total 840.84 / 857.54 1799.43 / 1816.13 287.73 / 287.73 Output Total 675 / 675 1050 / 1050 300 / 300 Balance 165.84 / 182.54 749.43 / 766.13 -12.27 / -12.27 Lab / Micro Data 11/17/24 06:03 11/17/24 06:03 Labs: Laboratory Results - last 24 hr 11/16/24 11:35: POC Glucose 229 H 11/16/24 14:34: APTT 51.4 H 11/16/24 16:07: POC Glucose 104 11/16/24 21:43: POC Glucose 150 H 11/16/24 23:19: APTT 72.7 H 11/17/24 06:03: WBC 5.0, RBC 3.60 L, Hgb 10.5 L, Hct 31.8 L, MCV 88.3, MCH 29.2,MCHC 33.0, RDW Std Deviation 45.0 H, RDW Coeff of Marifer 13.9, Plt Count TNP, MPV TNP, Immature Gran % (Auto) 0.400, Neut % (Auto) 52.2, Lymph % (Auto) 32.1, Zapata% (Auto) 11.7 H, Eos % (Auto) 3.2, Baso % (Auto) 0.4, Absolute Neuts (auto) 2.6,Absolute Lymphs (auto) 1.62, Nucleated RBC % 0, Differential Comment SCANNED, Platelet Estimate ADEQUATE, Plt Morphology Comment CLUMPED, APTT 70.1 H, Sodium 135, Potassium 3.8, Chloride 101, Carbon Dioxide 24.1, Anion Gap 10, BUN 22 H, Creatinine 0.98, Estim Creat Clear Calc 78.73, Est GFR (MDRD) Non-Af 80, BUN/Creatinine Ratio 22.9 H, Glucose 183 H, Calcium 9.0, Magnesium 1.8, TSH 0.228L Rhythm Strip Rhythm Strip: Paced Rate: 96 Ectopy: None Cardiology Labs/Tests 11/16/24 14:34: APTT 51.4 H 11/16/24 23:19: APTT 72.7 H 11/17/24 06:03: WBC 5.0, RBC 3.60 L, Hgb 10.5 L, Hct 31.8 L, MCV 88.3, MCH 29.2,MCHC 33.0, Plt Count TNP, MPV TNP, Immature Gran % (Auto) 0.400, Neut % (Auto) 52.2, Lymph % (Auto) 32.1, [place]ap[place] % (Auto) 11.7 H, Eos % (Auto) 3.2, Baso % (Auto)0.4, Absolute Neuts (auto) 2.6, Nucleated RBC % 0, APTT 70.1 H, Sodium 135, Potassium 3.8, Chloride 101, Carbon Dioxide 24.1, Anion Gap 10, BUN 22 H, Creatinine 0.98, Est GFR (MDRD) Non-Af 80, BUN/Creatinine Ratio 22.9 H, Glucose 183 H, Calcium 9.0, Magnesium 1.8 Rhythm: EKG: ECHO: Stress Test: Cardiac Cath: PCI: CT Surgery: Holter monitor: EPS: PPM: CXR: Chest CT Scan: Radiography Diagnostic Testing: Radiology Impression Echocardiogram 11/15/24 13:38 Interpretation Summary The left ventricular ejection fraction is 60 %. Normal LV size. The left atrium is moderately enlarged. The right atrium is moderately enlarged. ICD or pacer leads identified within the right ventricle. Contrast injection was performed. The study was technically limited. Ordering Physician: Johny Barclay Referring Physician: Jessi Olguin MD Performed By: Ernestine Duvall RCS Physical Exam Const alert, oriented x3 and no apparent distress General Appearance: cooperative HEENT hearing grossly normal bilaterally Head and Scalp: atraumatic Eyes EOMs intact bilaterally Neck General: normal visual inspection Chest inspection of chest normal and palpation of chest normal Resp normal respiratory effort Auscultation: clear to auscultation bilaterally Cardio regular rate, regular rhythm, S1 normal heart sound and S2 normal heart sound Jugular Venous Distention: JVD GI normal to inspection, nondistended, normoactive bowel sounds Extremity normal capillary refill and no pedal edema Peripheral Pulses: Yes pulses 2+ throughout and femoral pulses present Skin no rashes or lesions noted Neuro oriented x3 and CN's II-XII intact bilaterally Psych Appearance: grossly normal and appropriate Assessment & Plan Assessment/Plan (1) V tach: PLAN: Patient presented with multiple appropriate ICD discharges. Currently on intravenous amiodarone. Cardiac catheterization demonstrated patency of all 3 coronary arteries and preserved ejection fraction. Will plan on continuing IV amiodarone and then switching over to p.o. amiodarone. (2) Atrial fibrillation: PLAN: Currently in atrial fibrillation with ventricular pacing. Will continue beta-anthony and amiodarone Will resume Xarelto tomorrow. (3) Single implantable cardioverter-defibrillator (ICD) in situ: PLAN: Single ICD implantation. Appropriate discharge for VT noted. (4) Coronary artery disease: PLAN: Patient with known history of coronary artery disease status post PCI of the right coronary artery. Cardiac catheterization demonstrated patency of the above. Preserved ejection fraction noted. No need for intervention at this time. 11/17/24 0955 <Electronically signed by Judson Isabel MD> Cosigner Signature (if applicable): CC: ~ Signed [facility] Work Phone: [phone] 522-590506-16-2025 Progress note Author Osmar Brown [facility] Note Date/Time November 16, 2024 2:43 pm [facility] Medical Records Department [address] [place] [address] Progress Note - Hospitalist 11/16/24 0857 MR#: [id number] Acct: [id number] Name: ARMIN TURCIOS Rep #:[id number] : 1950 74 From: Osmar Hayden PCP: Dr. Jessi Olguin MD Status:ADM IN [facility] Reason for Visit Reason for Visit: Diagnoses Atherosclerotic heart disease of [place] coronary artery without angina pectoris (11/14/24) Ventricular tachycardia, unspecified (11/14/24) Unspecified atrial fibrillation (11/14/24) Presence of automatic (implantable) cardiac defibrillator (11/14/24) Objective Data Objective Data Vital Signs: Vital Signs Temp Pulse Resp BP Pulse Ox O2 Del Method 98.1 F 73 18 104/63 94 Room Air 11/16/24 08:07 11/16/24 08:31 11/16/24 06:00 11/16/24 08:31 11/16/24 06:00 11/16/24 03:00 Oxygen Delivery Method Room Air Weight: 222 lb 8 oz Body Mass Index (BMI) 27.1 Intake & Output: Intake and Output for Last 24 Hours 11/14/24 11/15/24 11/16/24 23:59 23:59 23:59 Intake Total 303.00 / 303.00 840.84 / 857.54 116.90 / 116.90 Output Total 675 / 675 300 / 300 Balance 303.00 / 303.00 165.84 / 182.54 -183.10 / -183.10 Lab / Micro Data 11/16/24 04:20 11/16/24 04:20 Labs: Laboratory Results - last 24 hr 11/15/24 11:07: POC Glucose 239 H 11/15/24 13:25: PT 19.8 H, INR 1.6 11/15/24 16:42: POC Glucose 192 H 11/15/24 20:19: POC Glucose 194 H 11/16/24 04:20: WBC 4.6, RBC 3.77 L, Hgb 11.1 L, Hct 33.1 L, MCV 87.8, MCH 29.4,MCHC 33.5, RDW Std Deviation 44.7 H, RDW Coeff of Marifer 13.9, Plt Count TNP, MPV TNP, Immature Gran % (Auto) 0.400, Neut % (Auto) 53.5, Lymph % (Auto) 30.8, Zapata% (Auto) 12.1 H, Eos % (Auto) 2.8, Baso % (Auto) 0.4, Absolute Neuts (auto) 2.5,Absolute Lymphs (auto) 1.42, Nucleated RBC % 0, Differential Comment SCANNED, Platelet Estimate ADEQUATE, PT 17.2 H, INR 1.4, APTT 37.8 H, Sodium 137, Potassium 3.4, Chloride 101, Carbon Dioxide 22.7, Anion Gap 13, BUN 23 H, Creatinine 0.89, Estim Creat Clear Calc 86.69, Est GFR (MDRD) Non-Af 89, BUN/Creatinine Ratio 25.8 H, Glucose 201 H, Calcium 9.0 11/16/24 08:26: POC Glucose 214 H Rhythm Strip Rhythm Strip: Paced Rate: 96 Ectopy: None Physical Exam Narrative Seen and examined. laboratory monitor shows paced rhythm. Was admitted with multiple AICD firing/shock. No V. tach since admission. Had 1 PCI in June 2024. Denies chest pain or shortness of breath or syncope. Physical exam General: Alert, Oriented x3, Cooperative HEENT: Moderate hearing loss. Atraumatic, PERRLA, EOMI, Normocephalic. Oral: No Gingival or Mucosal Lesions/ Ulcerations Neck: Supple, No JVD, Negative Carotid Bruits Chest wall/Lungs: Air entry diminished in bilateral lung bases. No crepitation/rhonchi Cardiovascular: Paced rhythm, Normal S1,S2, systolic murmur LLSB. Left upper chest AICD Abdomen: Bowel Sounds Present, Soft, Non Tender, Non-Distended : No dysuria. No renal angle tenderness. No suprapubic tenderness. Extremities: No edema, Capillary Refill Less than 3 Seconds Skin: No rashes, No breakdown Musculoskeletal: No Tenderness to Palpation of Joints or Extremities Neurological: Cranial nerves II-XII grossly intact, DTR 2+/4. No acute focal neurological deficit. Psych/Mental Status: Normal Affect, Appropriate. Assessment & Plan Assessment/Plan (1) V tach: PLAN: Plan #Chest pain in the setting of ICD firing * Admit to PCU. Patient has an ICD in situ and states on the day of admission he went to use the bathroom and got lightheaded when standing up. His ICD started going off and firing * He therefore called the EMS and came into the ED. EMS noticed the patient was in intermittent ventricular tachycardia * Patient has his ICD inserted in June 2024. He does not does not seem to be on any antiarrhythmics. * EKG showed a paced rhythm. * Troponins 28, 77 and 165 * ICD interrogated showed multiple episodes of ventricular tachycardia and ventricular fibrillation. 11/16: Echo shows EF 60% with right and left atrium moderately enlarged. Normal LV size. Plan for heart cath amiodarone drip changed to amiodarone oral 200 mg twice daily #Type 2 diabetes mellitus: * On Lantus 10 units daily. * InsulinSliding scale. Checks ACHS. #Atrial fibrillation: Status post pacemaker. On Xarelto and metoprolol #History of CAD: Status post stents. #Benign essential hypertension: On metoprolol #Heart failure preserved ejection fraction: Not in exacerbation. On p.o. Lasix. #Hyperlipidemia: On statin #Hypothyroidism: On Synthroid. #Depression: On venlafaxine DVT prophylaxis: Already on Xarelto CODE STATUS: Full code Clinical Impression(s) from Imaging Studies Chest X-Ray 11/14/24 10:37 IMPRESSION: No acute process. Bochdalek's hernia. Echocardiogram 11/15/24 13:38 Interpretation Summary The left ventricular ejection fraction is 60 %. Normal LV size. The left atrium is moderately enlarged. The right atrium is moderately enlarged. ICD or pacer leads identified within the right ventricle. Contrast injection was performed. The study was technically limited. Charges/Coding Visit Charges Inpatient E&M: 08242 Subs Hosp L2 11/16/24 1443 <Electronically signed by Osmar Brown MD> Cosigner Signature (if applicable): CC: ~ Signed [facility] Work Phone: [phone] 260-986306-16-2025 Progress note Author Judson Isabel [facility] Note Date/Time November 16, 2024 11:4 2am [facility] Medical Records Department [address] [place] [address] Progress Note - Cardiology 11/16/24 0701 MR#: [id number] Acct: [id number] Name: ARMIN TURCIOS Rep #:[id number] : 1950 74 From: Judson Isabel MD PCP: Dr. Jessi Olguin MD Status:ADM IN Location: [place] [address] Subjective Subjective Patient seen and evaluated. Patient had presented for defibrillator discharge. Doing well at this time. Objective Data Vital Signs: Vital Signs Temp Pulse Resp BP Pulse Ox O2 Del Method 98.7 F 72 18 131/75 H 94 Room Air 11/16/24 03:00 11/16/24 06:00 11/16/24 06:00 11/16/24 06:00 11/16/24 06:00 11/16/24 03:00 Oxygen Delivery Method Room Air Weight: 222 lb 8 oz Body Mass Index (BMI) 27.1 Intake & Output: Intake and Output for Last 24 Hours 11/14/24 11/15/24 11/16/24 23:59 23:59 23:59 Intake Total 303.00 / 303.00 840.84 / 857.54 116.90 / 116.90 Output Total 675 / 675 300 / 300 Balance 303.00 / 303.00 165.84 / 182.54 -183.10 / -183.10 Lab / Micro Data 11/16/24 04:20 11/16/24 04:20 Labs: Laboratory Results - last 24 hr 11/15/24 08:04: POC Glucose 198 H 11/15/24 11:07: POC Glucose 239 H 11/15/24 13:25: PT 19.8 H, INR 1.6 11/15/24 16:42: POC Glucose 192 H 11/15/24 20:19: POC Glucose 194 H 11/16/24 04:20: WBC 4.6, RBC 3.77 L, Hgb 11.1 L, Hct 33.1 L, MCV 87.8, MCH 29.4,MCHC 33.5, RDW Std Deviation 44.7 H, RDW Coeff of Marifer 13.9, Plt Count TNP, MPV TNP, Immature Gran % (Auto) 0.400, Neut % (Auto) 53.5, Lymph % (Auto) 30.8, Zapata% (Auto) 12.1 H, Eos % (Auto) 2.8, Baso % (Auto) 0.4, Absolute Neuts (auto) 2.5,Absolute Lymphs (auto) 1.42, Nucleated RBC % 0, Differential Comment SCANNED, Platelet Estimate ADEQUATE, PT 17.2 H, INR 1.4, APTT 37.8 H, Sodium 137, Potassium 3.4, Chloride 101, Carbon Dioxide 22.7, Anion Gap 13, BUN 23 H, Creatinine 0.89, Estim Creat Clear Calc 86.69, Est GFR (MDRD) Non-Af 89, BUN/Creatinine Ratio 25.8 H, Glucose 201 H, Calcium 9.0 Rhythm Strip Rhythm Strip: Paced Rate: 96 Ectopy: None Cardiology Labs/Tests 11/15/24 13:25: PT 19.8 H, INR 1.6 11/16/24 04:20: WBC 4.6, RBC 3.77 L, Hgb 11.1 L, Hct 33.1 L, MCV 87.8, MCH 29.4,MCHC 33.5, Plt Count TNP, MPV TNP, Immature Gran % (Auto) 0.400, Neut % (Auto) 53.5, Lymph % (Auto) 30.8, Zapata % (Auto) 12.1 H, Eos % (Auto) 2.8, Baso % (Auto)0.4, Absolute Neuts (auto) 2.5, Nucleated RBC % 0, PT 17.2 H, INR 1.4, APTT 37.8H, Sodium 137, Potassium 3.4, Chloride 101, Carbon Dioxide 22.7, Anion Gap 13, BUN 23 H, Creatinine 0.89, Est GFR (MDRD) Non-Af 89, BUN/Creatinine Ratio 25.8 H,Glucose 201 H, Calcium 9.0 Rhythm: EKG: ECHO: Stress Test: Cardiac Cath: PCI: CT Surgery: Holter monitor: EPS: PPM: CXR: Chest CT Scan: Physical Exam Const alert, oriented x3 and no apparent distress General Appearance: cooperative HEENT hearing grossly normal bilaterally Head and Scalp: atraumatic Eyes EOMs intact bilaterally Neck General: normal visual inspection Chest inspection of chest normal and palpation of chest normal Resp normal respiratory effort Auscultation: clear to auscultation bilaterally Cardio regular rate, regular rhythm, S1 normal heart sound and S2 normal heart sound Jugular Venous Distention: JVD GI normal to inspection, nondistended, normoactive bowel sounds Extremity normal capillary refill and no pedal edema Peripheral Pulses: Yes pulses 2+ throughout and femoral pulses present Skin no rashes or lesions noted Neuro oriented x3 and CN's II-XII intact bilaterally Psych Appearance: grossly normal and appropriate Assessment & Plan Assessment/Plan (1) V tach: PLAN: Patient presented with multiple appropriate ICD discharges. Currently on intravenous amiodarone. Will need to exclude ischemic coronary disease. Patient underwent PCI in June 2024. Due to being on Xarelto will evaluate this in a.m. * Echocardiogram will be performed to assess ventricular function. * Has not had any VT since admission we will switch to p.o. amiodarone (2) Atrial fibrillation: PLAN: Currently in atrial fibrillation with ventricular pacing. Will continue beta-anthony and amiodarone Hold Xarelto pending cath (3) Single implantable cardioverter-defibrillator (ICD) in situ: PLAN: Single ICD implantation. Appropriate discharge for VT noted. (4) Coronary artery disease: PLAN: Patient with known history of coronary artery disease status post PCI of the right coronary artery. Will reassess coronary anatomy. Depending on the findings further recommendations made. Will continue with secondary risk factormodification. 11/16/24 1142 <Electronically signed by Judson Isabel MD> Cosigner Signature (if applicable): CC: ~ Signed [facility] Work Phone: [phone] Progress note Author Erin Morris [facility] Note Date/Time November 15, 2024 3:37 pm [facility] Medical Records Department [address] [place] [address] Progress Note 11/15/24 1313 MR#: [id number] Acct: [id number] Name: ARMIN TURCIOS Rep #:[id number] : 1950 74 From: Erin Morris MD PCP: Dr. Jessi Olguin MD Status:ADM IN Location: [place] [address] Subjective Subjective Patient seen and examined. His was by his bedside. He had no active complaints. He had the ICD interrogated earlier this morning and it showed about 12 episodes of ventricular tachycardia and ventricular fibrillation for which the ICD fired between yesterday and today. Cardiology is on board. He denies any chest pain or any other symptoms. Review of systems otherwise negative. He remains on amiodarone drip. Objective Data Objective Data Vital Signs: Vital Signs Temp Pulse Resp BP Pulse Ox O2 Del Method 97.0 F L 72 16 96/62 96 Room Air 11/15/24 09:00 11/15/24 12:00 11/15/24 12:00 11/15/24 12:00 11/15/24 12:00 11/15/24 09:24 Oxygen Delivery Method Room Air Weight: 222 lb 8 oz Body Mass Index (BMI) 27.1 Intake & Output: Intake and Output for Last 24 Hours 11/13/24 11/14/24 11/15/24 23:59 23:59 23:59 Intake Total 303.00 / 303.00 666.80 / 666.80 Output Total 375 / 375 Balance 303.00 / 303.00 291.80 / 291.80 Lab / Micro Data 11/15/24 05:25 11/15/24 05:25 Labs: Laboratory Results - last 24 hr 11/14/24 10:33: Magnesium 1.7 11/14/24 15:30: Troponin T Hi Sens 4Hr 165 H* 11/14/24 16:27: POC Glucose 213 H 11/14/24 22:00: POC Glucose 121 H 11/15/24 05:25: WBC 5.7, RBC 3.68 L, Hgb 10.8 L, Hct 32.1 L, MCV 87.2, MCH 29.3,MCHC 33.6, RDW Std Deviation 43.2, RDW Coeff of Marifer 13.6, Plt Count TNP, MPV TNP, Immature Gran % (Auto) 0.300, Neut % (Auto) 56.6, Lymph % (Auto) 30.9, Zapata% (Auto) 10.8 H, Eos % (Auto) 1.2, Baso % (Auto) 0.2, Absolute Neuts (auto) 3.2,Absolute Lymphs (auto) 1.77, Nucleated RBC % 0, Differential Comment SCANNED, Platelet Estimate ADEQUATE, Sodium 135, Potassium 3.7, Chloride 100, Carbon Dioxide 22.0, Anion Gap 14, BUN 28 H, Creatinine 0.96, Estim Creat Clear Calc 80.37, Est GFR (MDRD) Non-Af 82, BUN/Creatinine Ratio 28.9 H, Glucose 195 H, Calcium 9.3 11/15/24 08:04: POC Glucose 198 H 11/15/24 11:07: POC Glucose 239 H Rhythm Strip Rhythm Strip: Paced Rate: 96 Ectopy: None Physical Exam Const alert, oriented x3 and no apparent distress General Appearance: cooperative HEENT normocephalic, head/scalp atraumatic, hearing grossly normal bilaterally and moist oral mucous membranes Eyes Eyes Narrative: patient legally blind Neck supple and no JVD Lymph Lymphatic: no lymphedema noted Resp normal respiratory effort, normal air movement, no use of accessory muscles and clear to auscultation bilaterally Cardio regular rate, regular rhythm, S1 normal heart sound, S2 normal heart sound and no murmurs GI normal to inspection, nondistended, normoactive bowel sounds and soft to palpation Extremity normal to inspection and full ROM General Extremity: no tenderness to palpation of joints or extremities Skin General Skin Exam: no breakdown Neuro moves all extremities and no focal motor deficits Neuro Narrative: Patient legally blind Sensorium / Orientation: awake and alert Motor Exam: strength 5/5 throughout Psych thought process normal, cooperative and affect normal Appearance: appropriate Assessment & Plan Assessment/Plan (1) V tach: PLAN: Plan #Chest pain in the setting of ICD firing * Admit to PCU. Patient has an ICD in situ and states on the day of admission he went to use the bathroom and got lightheaded when standing up. His ICD started going off and firing * He therefore called the EMS and came into the ED. EMS noticed the patient was in intermittent ventricular tachycardia * Patient has his ICD inserted in June 2024. He does not does not seem to be on any antiarrhythmics. * EKG showed a paced rhythm. * on amiodarone drip * cardiology on board * 2D echo ordered * troponins trended up to a peak of 165 * ICD interrogated today showed multiple episodes of ventricular tachycardia and ventricular fibrillation. * * * #Type 2 diabetes mellitus: * On Lantus 10 units daily. * InsulinSliding scale. Checks ACHS. #Atrial fibrillation: Status post pacemaker. On Xarelto and metoprolol #History of CAD: Status post stents. #Benign essential hypertension: On metoprolol #Heart failure preserved ejection fraction: Not in exacerbation. On p.o. Lasix. #Hyperlipidemia: On statin #Hypothyroidism: On Synthroid. Check TSH #Depression: On venlafaxine DVT prophylaxis: Already on Xarelto CODE STATUS: Full code * Charges/Coding Visit Charges Inpatient E&M: 76231 Subs Hosp L2 11/15/24 1537 <Electronically signed by Erin Morris MD> Erin Morris MD Cosigner Signature (if applicable): CC: ~ Signed [facility] Work Phone: [phone] Progress note Author Johny Ning [facility] Note Date/Time November 15, 2024 2:14 pm [facility] Medical Records Department [address] [place] [address] Progress Note - Cardiology 11/15/24 1045 MR#: [id number] Acct: [id number] Name: AJAYANEGLITOMIMIJOSHUA MCGINNISIP Rep #:[id number] : 1950 74 From: Johny Barclay MD PCP: Dr. Jessi Olguin MD Status:ADM IN Location: [facility] [id number] Subjective Subjective no complaints overnight Objective Data Vital Signs: Vital Signs Temp Pulse Resp BP Pulse Ox O2 Del Method 97.0 F L 72 12 105/74 94 Room Air 11/15/24 09:00 11/15/24 10:00 11/15/24 10:00 11/15/24 10:00 11/15/24 10:00 11/15/24 09:24 Oxygen Delivery Method Room Air Weight: 222 lb 8 oz Body Mass Index (BMI) 27.1 Intake & Output: Intake and Output for Last 24 Hours 11/13/24 11/14/24 11/15/24 23:59 23:59 23:59 Intake Total 303.00 / 303.00 233.40 / 233.40 Balance 303.00 / 303.00 233.40 / 233.40 Lab / Micro Data 11/15/24 05:25 11/15/24 05:25 Labs: Laboratory Results - last 24 hr 11/14/24 10:33: WBC 7.8, RBC 4.07 L, Hgb 11.9 L, Hct 36.7 L, MCV 90.2, MCH 29.2,MCHC 32.4, RDW Std Deviation 45.3 H, RDW Coeff of Marifer 13.8, Plt Count , ImmatureGran % (Auto) 0.400, Neut % (Auto) 43.6 L, Lymph % (Auto) 43.8 H, Zapata % (Auto) 10.3 H, Eos % (Auto) 1.5, Baso % (Auto) 0.4, Absolute Neuts (auto) 3.4, AbsoluteLymphs (auto) 3.42, Nucleated RBC % 0, Platelet Estimate ADEQUATE, Sodium 137, Potassium 3.3, Chloride 100, Carbon Dioxide 22.0, Anion Gap 14, BUN 25 H, Creatinine 1.09, Estim Creat Clear Calc 74.75, Est GFR (MDRD) Non-Af 70, BUN/Creatinine Ratio 22.6 H, Glucose 230 H, Calcium 9.3, Magnesium 1.7, Troponin T High Sens 28 H D 11/14/24 12:33: Troponin T Hi Sens 2 Hr 77 H* 11/14/24 15:30: Troponin T Hi Sens 4Hr 165 H* 11/14/24 16:27: POC Glucose 213 H 11/14/24 22:00: POC Glucose 121 H 11/15/24 05:25: WBC 5.7, RBC 3.68 L, Hgb 10.8 L, Hct 32.1 L, MCV 87.2, MCH 29.3,MCHC 33.6, RDW Std Deviation 43.2, RDW Coeff of Marifer 13.6, Plt Count TNP, MPV TNP, Immature Gran % (Auto) 0.300, Neut % (Auto) 56.6, Lymph % (Auto) 30.9, Zapata% (Auto) 10.8 H, Eos % (Auto) 1.2, Baso % (Auto) 0.2, Absolute Neuts (auto) 3.2,Absolute Lymphs (auto) 1.77, Nucleated RBC % 0, Differential Comment SCANNED, Platelet Estimate ADEQUATE, Sodium 135, Potassium 3.7, Chloride 100, Carbon Dioxide 22.0, Anion Gap 14, BUN 28 H, Creatinine 0.96, Estim Creat Clear Calc 80.37, Est GFR (MDRD) Non-Af 82, BUN/Creatinine Ratio 28.9 H, Glucose 195 H, Calcium 9.3 11/15/24 08:04: POC Glucose 198 H Rhythm Strip Rhythm Strip: Paced Rate: 96 Ectopy: None Cardiology Labs/Tests 11/14/24 10:33: WBC 7.8, RBC 4.07 L, Hgb 11.9 L, Hct 36.7 L, MCV 90.2, MCH 29.2,MCHC 32.4, Plt Count , Immature Gran % (Auto) 0.400, Neut % (Auto) 43.6 L, Lymph% (Auto) 43.8 H, Zapata % (Auto) 10.3 H, Eos % (Auto) 1.5, Baso % (Auto) 0.4, Absolute Neuts (auto) 3.4, Nucleated RBC % 0, Sodium 137, Potassium 3.3, Chloride 100, Carbon Dioxide 22.0, Anion Gap 14, BUN 25 H, Creatinine 1.09, Est GFR (MDRD) Non-Af 70, BUN/Creatinine Ratio 22.6 H, Glucose 230 H, Calcium 9.3, Magnesium 1.7 11/15/24 05:25: WBC 5.7, RBC 3.68 L, Hgb 10.8 L, Hct 32.1 L, MCV 87.2, MCH 29.3,MCHC 33.6, Plt Count TNP, MPV TNP, Immature Gran % (Auto) 0.300, Neut % (Auto) 56.6, Lymph % (Auto) 30.9, Zapata % (Auto) 10.8 H, Eos % (Auto) 1.2, Baso % (Auto)0.2, Absolute Neuts (auto) 3.2, Nucleated RBC % 0, Sodium 135, Potassium 3.7, Chloride 100, Carbon Dioxide 22.0, Anion Gap 14, BUN 28 H, Creatinine 0.96, Est GFR (MDRD) Non-Af 82, BUN/Creatinine Ratio 28.9 H, Glucose 195 H, Calcium 9.3 Rhythm: EKG: ECHO: Stress Test: Cardiac Cath: PCI: CT Surgery: Holter monitor: EPS: PPM: CXR: Chest CT Scan: Radiography Diagnostic Testing: Radiology Impression Chest X-Ray 11/14/24 10:37 IMPRESSION: No acute process. Bochdalek's hernia. Reading Location: [facility] Physical Exam Const Constitutional Narrative: General?alert oriented HEENT- blind left eye, atraumatic Neck supple no JVD Cardiovascular- normal S1-S2, no murmurs Pulmonary- clear to auscultation bilaterally Abdomen- soft to palpation, normal sounds Extremities- no edema Musculoskeletal- no tenderness no swelling Neurological -alert oriented Psych -normal affect Assessment & Plan Assessment/Plan (1) V tach: (2) Atrial fibrillation: (3) Single implantable cardioverter-defibrillator (ICD) in situ: (4) Coronary artery disease: PLAN: Plan 1. ICD discharge -device interrogation shows multiple appropriate ICD discharges for VT. Currently on amiodarone gtt. He will need ischemic workup to rule out ischemia/significant coronary artery disease given last PCI in June 2024. However he had Xarelto yesterday, plan for left heart cath on Saturday In the meantime obtain limited echocardiogram. There is a chancethat this may be scar mediated VT. Pending findings of heart cath he may need acardiac MRI to determine scar burden if his ICD is MRI safe. Cont heparin, Cont amio gtt for now with plan to transition to po 2. Atrial fibrillation: Device interrogation as mentioned above obtain echocardiogram 3. CAD status post PCI to the ostial RCA June 2024. Denies chest pain at this time. 4. Hypertension 5. Hyperlipidemia 11/15/24 1348 <Electronically signed by Johny Barclay MD> Cosigner Signature (if applicable): CC: ~ Signed ADDENDUM by Dr. Johny Barclay MD on 11/15/24 at 1414 Visit Charges Inpatient E&M: 06632 Subs Hosp L3 11/15/24 1414<Electronically signed by Johny Barclay MD> Cosigner Signature (if applicable): cc: ~* Signed [facility] Work Phone: [phone] 322-556206-14-2025 Consult note Author Johny Barclay [facility] Note Date/Time November 14, 2024 8:17 pm [facility] Medical Records Department [address] [place] [id number] Consultation - Cardiology 11/14/24 1341 MR#: [id number] Acct: [id number] Name: ARMIN TURCIOS Rep #:[id number] : 1950 74 From: Johny Barclay MD PCP: Dr. Jessi Olguin MD Status:ADM IN Location: [place] [address] Assessment & Plan Assessment/Plan (1) V tach: (2) Atrial fibrillation: (3) Single implantable cardioverter-defibrillator (ICD) in situ: (4) Coronary artery disease: PLAN: Plan 1. ICD discharge - will obtain device interrogation. He has been started on amiodarone. Will continue this until we obtain the full device interrogation. Keep electrolytes magnesium and potassium within normal limits. He will likely need a left heart cath pending ICD findings. For that reason recommend switching Xarelto to heparin 2. Atrial fibrillation: Device interrogation as mentioned above obtain echocardiogram 3. CAD status post PCI to the ostial RCA June 2024. Denies chest pain at this time. 4. Hypertension 5. Hyperlipidemia HPI Consult Data Date of Consult: 11/14/24 HPI Narrative Reason for Consultation: VT HPI Narrative: ARMIN TURCIOS, is a 74 M who presents with reports of about 15 ICD discharges. Reports that he was in the bathroom cleaning up and then felt unwell following that he felt his ICD ICD discharge. He called his to [facility] and subsequently had up to 10 more ICD discharges before EMS arrived; reports he had about 3-5 ICD discharges in the ambulance. He reports lightheadedness before the ICD discharges. He denies chest pain. He denies anynew medications. On arrival to the ER his troponins were mildly elevated in the20s. At this time has no complaints of chest pain. His ICD was recently inserted in June 2024. This was following hospitalization for cardiac arrestand VT. During that hospital admission he had a PCI to his [facility] Medical History Coronary artery disease Kidney [...] 500 mg tablet,extended 1,000 mg PO DAILY 11/14/24 History release 24 hr PEP device #1 ea 11/14/21 Unknown Rx ferrous sulfate 325 mg (65 mg 325 mg PO DAILY suppleme nt 01/02/22 11/14/24 History iron) tablet acetaminophen 500 mg tablet 1,000 mg PO Q8H PRN pain 0 08/03/24 09/20/24 History buspirone 7.5 mg tablet 7.5 mg PO BID 08/03/2411/14 History hydroxyzine pamoate 50 mg capsule 50 mg PO BID 5 11/14/24 History insulin lispro 100 unit/mL 12 unit subcut BIDAC 11/14/24 History subcutaneous pen (Humalog KwikPen (U-100) Insulin) lisinopril 5 mg tablet 5 mg PO DAILY bp 08/03/24 History Held on 09/03/24. Instructions: low bp atorvastatin 40 mg tablet 40 mg PO QHS 09/01/24 History clopidogrel 75 mg tablet 75 mg PO DAILY 09/01/2411/01 History levothyroxine 175 mcg tablet 175 mcg PO DAILY 09/01/24 09/20/24 History metoprolol succinate 25 mg 25 mg PO DAILY 09/01/24 History tablet,extended release 24 hr rivaroxaban 20 mg tablet 20 mg PO DAILY 09/01/2411/01 History venlafaxine 75 mg capsule,extended 75 mg PO DAILY 06/2711/14/24 History release 24 hr furosemide 40 mg tablet (Lasix) 40 mg PO DAILY #60 tab s 09/03/24 11/14/24 Rx acetylcysteine 600 mg capsule 600 mg PO BID 09/21/24 0 11/14/24 History ascorbic acid (vitamin C) 500 mg 500 mg PO DAILY 09/2111/14/24 History tablet cholecalciferol (vitamin D3) 25 25 mcg PO DAILY 11/14/24 History mcg (1,000 unit) tablet (Vitamin D3) insulin glargine 100 unit/mL (3 10 unit subcut DAILY 0 09/21/24 11/14/24 History mL) subcutaneous pen (Lantus Solostar U-100 Insulin) blood sugar diagnostic (True #10 ea 11/10/24 Unknown H istory Metrix Glucose Test Strip) Allergy/AdvReac Type Severity Reaction Status Date / Time shellfish derived Allergy Hives Verified 11/10/24 09:03 Family History Mother Cancer Sister Heart disease [...] never substance use type: does not use Physical Exam Const Constitutional Narrative: General?alert oriented HEENT- normal extraocular movements Neck supple no JVD Cardiovascular- normal S1-S2, no murmurs Pulmonary- clear to auscultation bilaterally Abdomen- soft to palpation, normal sounds Extremities- no edema Musculoskeletal- no tenderness no swelling Neurological -alert oriented Psych -normal affect Risk Stratification Risk Stratification Applicable: No Objective Data Vital Signs: Vital Signs Temp Pulse Resp BP Pulse Ox O2 Del Method 97.7 F L 69 15 107/70 97 Room Air 11/14/24 13:21 11/14/24 13:21 11/14/24 13:21 11/14/24 13:21 11/14/24 13:21 11/14/24 12:55 Oxygen Delivery Method Room Air Weight: 225 lb 12.054 oz Body Mass Index (BMI) 28.2 Lab / Micro Data 11/14/24 10:33 11/14/24 10:33 Labs: Laboratory Results - last 24 hr 11/14/24 10:33: WBC 7.8, RBC 4.07 L, Hgb 11.9 L, Hct 36.7 L, MCV 90.2, MCH 29.2,MCHC 32.4, RDW Std Deviation 45.3 H, RDW Coeff of Marifer 13.8, Plt Count , ImmatureGran % (Auto) 0.400, Neut % (Auto) 43.6 L, Lymph % (Auto) 43.8 H, Zapata % (Auto) 10.3 H, Eos % (Auto) 1.5, Baso % (Auto) 0.4, Absolute Neuts (auto) 3.4, AbsoluteLymphs (auto) 3.42, Nucleated RBC % 0, Platelet Estimate ADEQUATE, Sodium 137, Potassium 3.3, Chloride 100, Carbon Dioxide 22.0, Anion Gap 14, BUN 25 H, Creatinine 1.09, Estim Creat Clear Calc 74.75, Est GFR (MDRD) Non-Af 70, BUN/Creatinine Ratio 22.6 H, Glucose 230 H, Calcium 9.3, Magnesium 1.7, Troponin T High Sens 28 H D 11/14/24 12:33: Troponin T Hi Sens 2 Hr 77 H* Rhythm Strip Rhythm Strip: Paced Rate: 96 Ectopy: None Cardiology Labs/Tests 11/14/24 10:33: WBC 7.8, RBC 4.07 L, Hgb 11.9 L, Hct 36.7 L, MCV 90.2, MCH 29.2,MCHC 32.4, Plt Count , Immature Gran % (Auto) 0.400, Neut % (Auto) 43.6 L, Lymph% (Auto) 43.8 H, Zapata % (Auto) 10.3 H, Eos % (Auto) 1.5, Baso % (Auto) 0.4, Absolute Neuts (auto) 3.4, Nucleated RBC % 0, Sodium 137, Potassium 3.3, Chloride 100, Carbon Dioxide 22.0, Anion Gap 14, BUN 25 H, Creatinine 1.09, Est GFR (MDRD) Non-Af 70, BUN/Creatinine Ratio 22.6 H, Glucose 230 H, Calcium 9.3, Magnesium 1.7 Rhythm: EKG: ECHO: Stress Test: Cardiac Cath: PCI: CT Surgery: Holter monitor: EPS: PPM: CXR: Chest CT Scan: Radiography Diagnostic Testing: Radiology Impression Chest X-Ray 11/14/24 10:37 IMPRESSION: No acute process. Bochdalek's hernia. Reading Location: [facility] 11/14/242016 <Electronically signed by Johny Barclay MD> Cosigner Signature (if applicable): CC: Dr. Jessi Olguin MD~ Signed [facility] Work Phone: [phone]) [phone] History and physical note Author Eringrover Morris [facility] Note Date/Time November 14, 2024 6:30 pm [facility] Medical Records Department [address] [place] [address] H&P Exam - Hospitalist 11/14/24 1231 MR#: [id number] Acct: [id number] Name: ARMIN TURCIOS Rep #:[id number] : 1950 74 From: Erin Morris MD PCP: Dr. Jessi Olguin MD Status:ADM IN Location: [place] [id number] HPI - General General Date of Admission: 11/14/24 Date of Service: 11/14/24 Chief Complaint: chest pain HPI Narrative ARMIN TURCIOS, is a 74 M with a PMh as outlined who presents via the ED on 11/14/2024 with a complaint of chest pain. HE has an ICD in situ and says it fired about 10 times in the last hour prior to admission. The pacemaker defibrillator was inserted in [facility] in June 2024. He went to use the bathroom today and said he stared getting shocks from the defibrillator, fora total of about 10 shocks. He admitted to some lightheadedness prior to being shocked. He denied any dizziness, nausea, vomiting or shortness of breath or anyother symptoms. Review of systems is otherwise negative. His was by his bedside at time of review. VItals in the ED were BP of 122/65, NM of 98, RR of 19 and oxygen sats of 99% onroom air. CBC showed hb of 11.9, wbc of 7.8 and platelets estimate not given in CBC due to platelets clumping. CXR showed no acute cardiopulmonary process. EKG showed paced rhytm, though the EMS said he had some ventricular tachycardia per their rhythm strip. Family is not clear if he is on any cardiac antiarrhythmics. He has been admitted to manage for chest pain in the setting of ICD firing and probable ventricular tachycardia. [facility] Medical History Coronary artery disease Kidney stones [...] 500 mg tablet,extended 1,000 mg PO DAILY 11/14/24 History release 24 hr PEP device #1 ea 11/14/21 Unknown Rx ferrous sulfate 325 mg (65 mg 325 mg PO DAILY suppleme nt 01/02/22 11/14/24 History iron) tablet acetaminophen 500 mg tablet 1,000 mg PO Q8H PRN pain 0 08/03/24 09/20/24 History buspirone 7.5 mg tablet 7.5 mg PO BID 08/03/2411/14 History hydroxyzine pamoate 50 mg capsule 50 mg PO BID 5 11/14/24 History insulin lispro 100 unit/mL 12 unit subcut BIDAC 11/14/24 History subcutaneous pen (Humalog KwikPen (U-100) Insulin) lisinopril 5 mg tablet 5 mg PO DAILY bp 08/03/24 History Held on 09/03/24. Instructions: low bp atorvastatin 40 mg tablet 40 mg PO QHS 09/01/24 History clopidogrel 75 mg tablet 75 mg PO DAILY 09/01/2411/01 History levothyroxine 175 mcg tablet 175 mcg PO DAILY 09/01/24 09/20/24 History metoprolol succinate 25 mg 25 mg PO DAILY 09/01/24 History tablet,extended release 24 hr rivaroxaban 20 mg tablet 20 mg PO DAILY 09/01/2411/01 History venlafaxine 75 mg capsule,extended 75 mg PO DAILY 06/2711/14/24 History release 24 hr furosemide 40 mg tablet (Lasix) 40 mg PO DAILY #60 tab s 09/03/24 11/14/24 Rx acetylcysteine 600 mg capsule 600 mg PO BID 09/21/24 0 11/14/24 History ascorbic acid (vitamin C) 500 mg 500 mg PO DAILY 09/2111/14/24 History tablet cholecalciferol (vitamin D3) 25 25 mcg PO DAILY 11/14/24 History mcg (1,000 unit) tablet (Vitamin D3) insulin glargine 100 unit/mL (3 10 unit subcut DAILY 0 09/21/24 11/14/24 History mL) subcutaneous pen (Lantus Solostar U-100 Insulin) blood sugar diagnostic (True #10 ea 11/10/24 Unknown H istory Metrix Glucose Test Strip) Allergy/AdvReac Type Severity Reaction Status Date / Time shellfish derived Allergy Hives Verified 11/10/24 09:03 Family History Mother Cancer Sister Heart disease [...] not use ROS Constitutional Constitutional: Denies anorexia, chills, fatigue, fever(s), malaise or weakness Eyes Eyes: Reports other Details: patient legally blind ENT HEENT: Denies dysphagia or headache(s) Cardiovascular Cardiovascular: Reports chest pain and lightheadedness; Denies dyspnea on exertion, edema, orthopnea, palpitations, paroxysmal nocturnal dyspnea, rapid heart rate or syncope Respiratory/Chest Respiratory/Chest: Denies cough, dyspnea, shortness of breath at rest or shortness of breath with exertion Gastrointestinal Gastrointestinal: Denies abdominal pain, constipation, nausea or vomiting Genitourinary Genitourinary: Denies dysuria Neurologic Neurologic: Denies confusion, dizziness, focal weakness, headache(s), numbness, seizure-like activity, seizures or syncope Psychiatric Psychiatric: Denies anxiety or depression Endocrine Endocrinology: Denies change in body appearance Vital Signs Vital Signs Vital Signs: 11/14/24 10:30 11/14/24 10:37 11/14/24 11:00 Temperature 96.7 F L Temperature Source Axillary Pulse Rate 106 H 76 Respiratory Rate 14 19 H Blood Pressure 123/78 H 109/69 Blood Pressure Mean 93 82 Pulse Ox 97 97 98 Oxygen Delivery Method Room Air Room Air 11/14/24 11:30 11/14/24 12:00 Temperature Temperature Source Pulse Rate 67 98 Respiratory Rate 19 H 19 H Blood Pressure 98/77 122/65 H Blood Pressure Mean 84 84 Pulse Ox 95 99 Oxygen Delivery Method Room Air Room Air Weight Weight: 225 lb 12.054 oz Body Mass Index (BMI) 28.2 Physical Exam Const alert, oriented x3 and no apparent distress General Appearance: cooperative HEENT normocephalic, hearing grossly normal bilaterally and moist oral mucous membranes Eyes Eyes Narrative: patient legally blind Neck supple and no JVD Resp normal respiratory effort, no use of accessory muscles and clear to auscultationbilaterally Cardio regular rate, regular rhythm, S1 normal heart sound, S2 normal heart sound and no murmurs GI normal to inspection, nondistended, normoactive bowel sounds, soft to palpation,non-tender and non-distended Extremity normal to inspection and full ROM Neuro oriented x3, moves all extremities and no focal motor deficits Sensorium / Orientation: awake and alert Motor Exam: strength 5/5 throughout Psych affect normal Results Lab / Micro Data 11/14/24 10:33 11/14/24 10:33 Labs: Laboratory Results - last 24 hr 11/14/24 10:33: WBC 7.8, RBC 4.07 L, Hgb 11.9 L, Hct 36.7 L, MCV 90.2, MCH 29.2,MCHC 32.4, RDW Std Deviation 45.3 H, RDW Coeff of Marifer 13.8, Plt Count , ImmatureGran % (Auto) 0.400, Neut % (Auto) 43.6 L, Lymph % (Auto) 43.8 H, Zapata % (Auto) 10.3 H, Eos % (Auto) 1.5, Baso % (Auto) 0.4, Absolute Neuts (auto) 3.4, AbsoluteLymphs (auto) 3.42, Nucleated RBC % 0, Platelet Estimate ADEQUATE, Sodium 137, Potassium 3.3, Chloride 100, Carbon Dioxide 22.0, Anion Gap 14, BUN 25 H, Creatinine 1.09, Estim Creat Clear Calc 74.75, Est GFR (MDRD) Non-Af 70, BUN/Creatinine Ratio 22.6 H, Glucose 230 H, Calcium 9.3, Troponin T High Sens 28 H D Rhythm Strip Rhythm Strip: Paced Rate: 96 Ectopy: None Imaging Radiology Impression Chest X-Ray 11/14/24 10:37 IMPRESSION: No acute process. Bochdalek's hernia. Reading Location: [facility] Assessment & Plan Assessment/Plan (1) V tach: PLAN: Plan #Chest pain in the setting of ICD firing * Admit to PCU. Patient has an ICD in situ and states today he went to use the bathroom and got lightheaded when standing up. His ICD started going off and firing * He therefore called the EMS and came into the ED. EMS noticed the patient was in intermittent ventricular tachycardia * Patient has his ICD inserted in June 2024. He does not does not seem to be on any antiarrhythmics. * EKG showed a paced rhythm. Potassium was 3.3 and magnesium was not checked. Will check magnesium and replace potassium for minimal level of 4. * Order 2D echo. Consult cardiology. * Patient started on amiodarone drip. * #Type 2 diabetes mellitus: On Lantus 10 units daily. Sliding scale. Checks ACHS. #Atrial fibrillation: Status post pacemaker. On Xarelto and metoprolol #History of CAD: Status post stents. #Benign essential hypertension: On metoprolol #Heart failure preserved ejection fraction: Not in exacerbation. On p.o. Lasix. #Hyperlipidemia: On statin #Hypothyroidism: On Synthroid. Check TSH #Depression: On venlafaxine DVT prophylaxis: Already on Xarelto CODE STATUS: Full code * Patient counseled extensively about different types of CODE STATUS including full code, DNR CCA and DNR CCA. * Patient elects to be full code. * Total [id number]-[id number] time 17 minutes. Charges/Coding Visit Charges Inpatient E&M: 73388 Init Hosp L3 Procedures Hospitalists Procedures: 32367 Advncd Care Plan 30 Min 11/14/24 1830 <Electronically signed by Erin Morris MD> Cosigner Signature (if applicable): CC: Dr. Jessi Olguin MD; Dr. Erin Morris MD~ Signed [facility] Work Phone: [phone]) 801-112306-14-2025 Discharge summary Author Hoang Robertson [facility] Note Date/Time November 14, 2024 12:4 6pm [facility] Medical Records Department [address] [place] [address] Emergency Department Summary 11/14/24 MR#: [id number] Acct: [id number] Name: ARMIN TURCIOS Rep #:[id number] : 1950 74 From: Hoang Robertson MD PCP: Dr. Jessi Olguin MD Status:REG ER Location: ED HPI History of Present Illness Chief Complaint: Chest Pain Detail of Chief Complaint: Defibrillator going off. Shocked 10 times in the last hour. Informant: patient and EMS Onset/Context/Timing Onset: Today Activity at onset: sudden Timing: Intermittent Narrative Narrative: 74-year-old male legally blind. Has a pacemaker defibrillator he thinks was placed around June of this year at [facility] in [place]. Said he stoodup from the toilet today and he started getting shocks from his defibrillator. He believes it shocked him about 10 times in the last hour. He was brought in by paramedics they said it went off about 5 times prior to arrival. He denies any recent illness or complaints. States prior to being shocked he does feel lightheaded. Prior Similar Symptoms: No Recent Illness/Hospitalization: No PE Risk Factors: Negative for Recent Travel/Surgery, Recent Immobilization, Prior DVT or PE, Cancer or OCP + Smoking + >/=35 TAD Risk Factors: Negative for Marfan's Syndrome [facility] Medical History Coronary artery disease Kidney stones [...] 500 mg tablet,extended 1,000 mg PO DAILY 11/14/24 History release 24 hr PEP device #1 ea 11/14/21 Unknown Rx ferrous sulfate 325 mg (65 mg 325 mg PO DAILY suppleme nt 01/02/22 11/14/24 History iron) tablet acetaminophen 500 mg tablet 1,000 mg PO Q8H PRN pain 0 08/03/24 09/20/24 History buspirone 7.5 mg tablet 7.5 mg PO BID 08/03/2411/14 History hydroxyzine pamoate 50 mg capsule 50 mg PO BID 5 11/14/24 History insulin lispro 100 unit/mL 12 unit subcut BIDAC 11/14/24 History subcutaneous pen (Humalog KwikPen (U-100) Insulin) lisinopril 5 mg tablet 5 mg PO DAILY bp 08/03/24 History Held on 09/03/24. Instructions: low bp atorvastatin 40 mg tablet 40 mg PO QHS 09/01/24 History clopidogrel 75 mg tablet 75 mg PO DAILY 09/01/2411/01 History levothyroxine 175 mcg tablet 175 mcg PO DAILY 09/01/24 09/20/24 History metoprolol succinate 25 mg 25 mg PO DAILY 09/01/24 History tablet,extended release 24 hr rivaroxaban 20 mg tablet 20 mg PO DAILY 09/01/2411/01 History venlafaxine 75 mg capsule,extended 75 mg PO DAILY 06/2711/14/24 History release 24 hr furosemide 40 mg tablet (Lasix) 40 mg PO DAILY #60 tab s 09/03/24 11/14/24 Rx acetylcysteine 600 mg capsule 600 mg PO BID 09/21/24 0 11/14/24 History ascorbic acid (vitamin C) 500 mg 500 mg PO DAILY 09/2111/14/24 History tablet cholecalciferol (vitamin D3) 25 25 mcg PO DAILY 11/14/24 History mcg (1,000 unit) tablet (Vitamin D3) insulin glargine 100 unit/mL (3 10 unit subcut DAILY 0 09/21/24 11/14/24 History mL) subcutaneous pen (Lantus Solostar U-100 Insulin) blood sugar diagnostic (True #10 ea 11/10/24 Unknown H istory Metrix Glucose Test Strip) Allergy/AdvReac Type Severity Reaction Status Date / Time shellfish derived Allergy Hives Verified 11/10/24 09:03 Family History Mother Cancer Sister Heart disease [...] use type: does not use ROS ROS ED ROS Narrative Denies recent illness. Constitutional Constitutional ED: Denies chills or fever(s) Eyes Eyes: Reports none ENT ENT ED: Denies ear pain Cardiovascular Cardiovascular: Reports as per HPI Respiratory/Chest Respiratory/Chest: Denies cough Gastrointestinal Gastrointestinal: Denies abdominal pain Genitourinary Genitourinary ED: Denies dysuria Musculoskeletal Musculoskeletal: Denies arthralgias Integumentary Denies abscess Neurologic Neurologic: Denies headache(s) Psychiatric Psychiatric: Denies anxiety Endocrine Endocrinology: Denies cold intolerance Hematologic/Lymphatic Hematologic/Lymphatic: Denies easy bleeding Allergic/Immunologic Allergic/Immunologic ED: Denies mouth swelling EXAM Physical Exam Narrative Exam Narrative: Since 4-year-old male sitting upright in bed. Vital signs are stable afebrile. His current pulse is around 105. He is in a sinus rhythm. At times it is paced. Currently he is not in V. tach. Currently the pacemaker defibrillator is not firing. H EENT exam slightly blind in both eyes. Moist with membranes. Neck nontender no JVD. Lungs clear to auscultation bilaterally. Heart paced 105 no murmur. Chest wall and ribs are nontender. Abdomen soft nontender. Nondistended. Moving all 4 extremities. Nontender no edema. Neurologically isawake alert. Answering questions following commands. No focal motor deficits. Const Vital Signs: 11/14/24 10:30 11/14/24 10:37 11/14/24 11:00 Temperature 96.7 F L Temperature Source Axillary Pulse Rate 106 H 76 Respiratory Rate 14 19 H Blood Pressure 123/78 H 109/69 Blood Pressure Mean 93 82 Pulse Ox 97 97 98 Oxygen Delivery Method Room Air Room Air 11/14/24 11:30 11/14/24 12:00 11/14/24 12:30 Temperature Temperature Source Pulse Rate 67 98 67 Respiratory Rate 19 H 19 H 19 H Blood Pressure 98/77 122/65 H 110/76 Blood Pressure Mean 84 84 87 Pulse Ox 95 99 94 Oxygen Delivery Method Room Air Room Air Room Air 11/14/24 12:34 Temperature 98 F Temperature Source Pulse Rate 77 Respiratory Rate 14 Blood Pressure 110/76 Blood Pressure Mean 87 Pulse Ox 95 Oxygen Delivery Method Positive well nourished and well developed; Negative for cachectic, contracturesor unkempt General Appearance ED: well developed and NAD; Negative for unkempt, cachectic, contractures or pallor Nutritional Appearance: Negative for cachectic HEENT Reports moist mucous membranes normocephalic and atraumatic Eyes Negative for PERRL Eyes Narrative: Blind. Neck no lymphadenopathy, supple and no JVD Chest Wall inspection of chest normal and palpation of chest normal Resp normal respiratory effort and clear to auscultation bilaterally Cardio Rate: other Other Details: Paced rhythm 105. Peripheral Pulses: pulses 2+ throughout GI normal to inspection, nondistended, normoactive bowel sounds, soft to palpation,non-tender, non-distended and no masses Back/Spine no CVA tenderness and no thoracic nor lumbar tenderness Extremity normal to inspection General Extremety ED: Negative for edema or tenderness General Extremity: Negative for edema Neuro oriented x3 and No CN's II-XII intact bilaterally Neuro Narrative: Blind. Sensorium / Orientation: awake, alert, oriented to person, oriented to place andoriented to time; Negative for confused or lethargic Motor Exam: strength 5/5 throughout Psych mental status grossly normal Appearance: Negative for unkempt Skin no rashes or lesions noted and no wounds General Skin Exam: Negative for jaundice or pallor Rashes: No rashes noted Trauma: Negative for abrasion or laceration MDM MDM MDM Narrative Medical decision making narrative: 74-year-old male with a pacemaker defibrillator fired about 10 times in the lasthour. Currently he is paced. Currently he is not in V. tach. When the squad brought him in he had long runs of V. tach. Repeat exam at 12:17 PM patient doing well. Sitting upright in bed. Currently is in a paced rhythm. He is not in V. tach. The defibrillator has not shocked him since has been in the emergency department. Hospitalist paged for admission. History & Record Review Discussion w/independent historian: Patient and Other (EMS) Additional record(s) reviewed:: Prior inpatient record, Prior outpatient record,Prior ED visit and Prior labs Lab Data Attestation: I reviewed the patient's lab results. Lab results narrative: CBC white count 7.8. H&H 11.9 and 36. Platelets pending. Electrolytes show sodium 137. Gap 14. BUN 25 creatinine of 1. Glucose 230. Troponin 28. Labs: Laboratory Results - last 24 hr 11/14/24 10:33 WBC 7.8 RBC 4.07 L Hgb 11.9 L Hct 36.7 L MCV 90.2 MCH 29.2 MCHC 32.4 RDW Std Deviation 45.3 H RDW Coeff of Marifer 13.8 Plt Count Immature Gran % (Auto) 0.400 Neut % (Auto) 43.6 L Lymph % (Auto) 43.8 H Zapata % (Auto) 10.3 H Eos % (Auto) 1.5 Baso % (Auto) 0.4 Absolute Neuts (auto) 3.4 Absolute Lymphs (auto) 3.42 Nucleated RBC % 0 Platelet Estimate ADEQUATE Sodium 137 Potassium 3.3 Chloride 100 Carbon Dioxide 22.0 Anion Gap 14 BUN 25 H Creatinine 1.09 Estim Creat Clear Calc 74.75 Est GFR (MDRD) Non-Af 70 BUN/Creatinine Ratio 22.6 H Glucose 230 H Calcium 9.3 Troponin T High Sens 28 H D Radiography Chest X-Ray - ED: 1 View, Read by ED Physician, Read by Radiologist, Lungs, Mediastinum, Bony Structures, Chronic Changes and Cardiomegaly Diagnostic Testing: Clinical Impression(s) from Imaging Studies Chest X-Ray 11/14/24 10:37 IMPRESSION: No acute process. Bochdalek's hernia. Reading Location: [facility] Chronic changes. Cardiomegaly. Left-sided pacemaker defibrillator. Bochdalek hernia. Chest x-ray, portable, single view, interpreted by myself and radiologist. Rhythm Strip Rhythm Strip: Paced Rate: 96 Ectopy: None EKG Initial EKG: Attestation: I personally reviewed and interpreted this EKG as follows: Interpretation: No Acute Injury Pattern and Paced Comments: Ventricular paced rhythm rate of 96. No acute signs of VA. Discharge Plan Dx/Rx/DC Orders Clinical Impression: V tach, DM type 2 (diabetes mellitus, type 2), COPD (chronic obstructive pulmonary disease), History of cardiac defibrillator placement Disposition Disposition: Acute Care Hospital [facility] What to do if you have Problems For any increased pain, shortness of breath, bleeding, nausea or vomiting, chestpain, or any unexpected problems, contact your Primary Care Provider. Call [facility] ([phone]) or report to the closest Emergency Room. Call 911 if necessary. 11/14/24 1240 <Electronically signed by Hoang Robertson MD> Cosigner Signature (if applicable): CC: Dr. Jessi Olguin MD ~ Signed ADDENDUM by Dr. Hoang Robertson MD on 11/14/24 at 1246 I did speak to the wreath maker on-call. She would like the patient started on amiodarone drip which I have ordered. 11/14/24 1246<Electronically signed by Hoang Robertson MD> Cosigner Signature (if applicable): cc: Dr. Jessi Olguin MD ~* Signed [facility] Work Phone: [phone]) 273-887706-14-2025 Radiology Diagnostic study [facility]05-14-2025 Radiology Diagnostic study [facility]04-03-2025 [facility]04-01-2025 History and physical note [facility] Medical Records Department [address] [place] [address] H&P Exam - Hospitalist 09/01/24 2101 MR#: [id number] Acct: [id number] Name: LATRICE TURCIOS Rep #:[id number] : 1950 74 From: Shonda Gaston MD PCP: Dr. Jessi Olguin MD Status:ADM IN Location: [place] [id number] HPI - General General Date of Admission: 09/01/24 Date of Service: 09/01/24 Chief Complaint: Chest pain HPI Narrative The patient is a 74 y/o M w/ PMHx: Chronic COPD, Former tobacco use, CKD stage II per GFR trending,HFpEF, Chronic anemia/Fe deficiency anemia, Anxiety and Depression, Diabetes mellitus type II, CAD s/p PCI, Hx cardiac pauses/VT/bradycardia w/ syncope and cardiac arrest s/p AICD, Obesity, Hypothyroidism who presents to the [facility] ED on 09/01/24 with history of onset waxingand waning chest discomfort in the substernal and epigastric region described assharp worsened by movement and deep inspiratory effort with associated diaphoresis and lightheadedness starting on day of presentation initially whenhe been sitting at the kitchen table with reporting that he had at some point during the eventappeared pale, diaphoretic and cold with no recent dyspnea, cough or URI type symptoms but given presentation and recent history prompted ED evaluation to be cautious. In the ED patient notes that his chest feels better but he does still have discomfort especially deep inspiratory effort. He statesright now his mid abdominal region is uncomfortable and he points to the periumbilical region. He notes that he did have an issue with constipation was placed on bowel regimen but he recently stoppedthis when he transition back to home as he had been in a skilled facility. He notes that today he had a small bowel movement and did have some mild nausea and possibly emesis times 1 per but unclear. She notes has been tolerating a diet and has not had any issues as far as oral intake previousto this. He has been moreconstipated recently. Workup in the ED included T98.1, heart rate 78, BP in itially 79/44, respiratory rate 18, 95% on room [...] to the hospital for treatment of pneumonia. [facility] Medical History Coronary artery disease Kidney stones [...] self, place, recent events, irritable, follows commands however,seated upright in ED bed, complaining of no abdominal discomfort, notes no current chest discomfortbut does have discomfort with deepinspiratory effort. Skin: [...] % (Auto) 56.2, Lymph % (Auto) 30.1, Zapata % (Auto) 10.7 H, Eos % (Auto) [...] for infiltrates. Elevated left hemidiaphragm. Reading Location: [facility] Assessment & Plan Assessment/Plan (1) Chest pain: (2) Pneumonia: PLAN: Plan The patient is a 74 y/o M w/ PMHx: Chronic COPD, Former tobacco use, CKD stage II per GFR trending,HFpEF, Chronic anemia/Fe deficiency anemia, Anxiety and Depression, Diabetes mellitus type II, CAD s/p PCI, Hx cardiac pauses/VT/bradycardia w/ syncope and cardiac arrest s/p AICD, Obesity, Hypothyroidism who presents to the [facility] ED on 09/01/24 with history of onset waxingand waning chest discomfort in the substernal and epigastric region described assharp worsened by movement and deep inspiratory effort with associated diaphoresis and lightheadedness starting on day of presentation initially whenhe been sitting at the kitchen table with reporting that he had at some point during the eventappeared pale, diaphoretic and cold with no recent [...] enzymes given recent history, maintain on oxygen withwean as tolerated to room air, continue ATC [...] possibly reactive secondary to #1: Admission platelets 131,in the past has occasionally been remotely lower [...] with limited study, LVEF 70% with no regionalwall motion abnormalities. Cautiously hydrate if necessarygiven history, [...] syncopal event eventually taken to the cardiac Research [facility] with stenting of the RCA in addition to the ICD given cardiac pauses and arrhythmia. Will continue metoprolol regimen. Per most recent cardiology note/06/27 EP follow-up is arranged for next month at [place]. #7. CAD: Status post PCI 06/25/2024, will [...] including difference between FULL code, DNR-CCA and DNR- CCstatus. Following discussions about the differences in these status, requested eventually Full Code status although he vacillated initially in his decision. Recommended that he think about it over the next 24 hours and he prefers to change his status to notify staff.Advanced Care Planning Face to Face Time: 16 minutes. Charges/Coding Visit Charges Inpatient E&M: 22343 Init Hosp L3 Procedures Hospitalists Procedures: 96934 Advncd Care Plan 30 Min 09/01/24 2201 Cosigner Signature (if applicable): CC: Dr. Shonda Gaston MD; Dr. Jessi Olguin MD~ Signed [facility]04-01-2025 Radiology Diagnostic study note [facility] Imaging Services [address] [place] [address] Chest PA and Lateral MR#: [id number] Acct: [id number] Name: LATRICE TURCIOS Rep #: [id number] : 1950 M 74 From: Saurabh Díaz DO PCP: Dr. Jessi Olguin MD Status: [facility] ER Study:Chest PA and Lateral Date of Exam: 09/01/24 Exam# [id number] Ordering Dr: Jessi Calloway DO PROCEDURE: CHEST [...] Calloway DO; Dr. Jessi Olguin MD ~ Operations Label Clerk: [facility]03-03-2025 Evaluation note* Diagnosis Onset Date Resolution Status Admit Date Bronchiectasis chronic August 03, 2024 8:15am Chronic [...] 01 9:02pm Pneumonia resolved September 01 9:02pm [facility] Work Phone: 1(331) 268-918403-03-2025 Evaluation note* Diagnosis Onset Date Resolution Status Admit Date Bronchiectasis chronic August 03, 2024 8:15am Chronic [...] 01 9:02pm Pneumonia resolved September 01 9:02pm Abnormal CT of the chest acute November 10, 2024 8:59am Bronchiectasis chronic November 10, 2024 8:59am Chronic diastolic (congestive) heart failure chronic November 10, 2024 8:59am COPD (chronic obstructive pulmonary disease) chronic November 10 8:59am Atrial fibrillation acute November 14, 2024 12:55pm Coronary artery disease acute J une 2024 12:55pm Single implantable cardioverter-defibrillator (ICD) in situ acute November 14, 2024 12:55pm V tach acute November 14 12:55pm [facility] Work Phone: 1(790) 920-673603-03-2025 Evaluation note* Diagnosis Onset Date Resolution Status Admit Date Bronchiectasis chronic August 03, 2024 8:15am Chronic diastolic (congestive) heart failure chronic August 03, 2024 8:15am COPD (chronic obstructive pulmonary disease) chronic August 03 8:15am History of coronary artery stent placement June 25, 2024 acute September 01 7:52am Single implantable cardioverter-defibrillator (ICD) in situ acute September 01, 2024 7:52am Ventricular tachycardia acute A pri2024 7:52am Atrial fibrillation chronic September 01, 2024 7:52am Essential (primary) hypertension chronic September 01, 2024 7:52am Hyperlipidemia chronic September 01, 2024 7:52am DM type 2 (diabetes mellitus, type 2) chronic September 01 9:02pm Chest pain resolved September 01 9:02pm Pneumonia resolved September 01 9:02pm Abnormal CT of the chest acute November 10, 2024 8:59am Bronchiectasis chronic November 10, 2024 8:59am Chronic diastolic (congestive) heart failure chronic November 10, 2024 8:59am COPD (chronic obstructive pulmonary disease) chronic November 10 8:59am Coronary artery disease acute J une 2024 12:55pm Single implantable cardioverter-defibrillator (ICD) in situ acute November 14, 2024 12:55pm Atrial fibrillation chronic November 14, 2024 12:55pm V tach resolved November 14 12:55pm History of coronary artery stent placement June 25, 2024 acute December 01 8:22am Single implantable cardioverter-defibrillator (ICD) in situ acute December 01, 2024 8:22am Ventricular tachycardia acute J noé2024 8:22am Atrial fibrillation chronic December 01, 2024 8:22am Essential (primary) hypertension chronic December 01, 2024 8:22am Hyperlipidemia chronic December 01, 2024 8:22am [facility] Work Phone: 1(371) 356-171201-29-2025 Note Date of Service 07/01 Subjective No [...] started on IV amiodarone and transferred to [place] for ICD evaluation. Echocardiogram repeated during this [...] YOSI VERA MD on 07/01/2024 03:19 PM [id number] Pastoral care Progress note Pastoral Care Note [...] by Rony Crowder on 07/01/2024 04:43 PM [id number] Hospital Discharge instructions Patient Education 07/01/2024 13:32:57 [...] sends information from the device to your wreath maker (heart doctor) office. How will I get [...] where you sleep. The monitor will automatically garbage pick up man heart signals and send the information to [...] you have questions. [facility]: [phone] Ask for the Device Clinic or joe-in extension [phone] or 1200 when prompted. Device Clinic Location: [facility] (not the physician office building). Enter the [facility] and take the elevators to the [...] Your device card will tell you the staging technician. Using the search box: [employer] Scientific: Daina Communicator quick start oPatient Help: Medtronic: MyCareLink quick start oPatient Help: St Tom (Matthews): [email or web address] quick start oPatient Help: Other important information [...] not touch the CB radio antenna or [facility] radio antenna that are in operation. Do not touch spark plugs or distributor wires of a running car or code enforcement inspector. Avoid the fenced enclosure areas of a [...] ICD. You must tell your surgeon or Cooker Casing before you undergo any procedure or surgery. This includes, but is not limited to: any surgery, colonoscopy and/or EGD s. Follow Up Care 06/27/2024 09:11:53 With:ELBA WOOD MD Address: [address] [facility] [address] [address] [phone] When:5 to 7 days With:SEDRICK ALEXANDER MD Address: [address] [address] [phone] When:5 to 7 days With:Discharge to Left Hand at [facility] Level of Care Address:Unknown When:1-2 days With:JESSI OLGUIN MD Address: [facility] [address] [place] [address]- When:1-2 days Comments:Please call the office to schedule a hospital follow up appointment. With:INCISION CHECK Address: [address] [place] [address]- [phone] When:07/16/2024 09:45:00 With:DEVICE CLINIC Address: [address] [place] [address]- [phone] When:09/29/2024 13:45:00 With:READMISSION RISK SCORE Address:Unknown When: Unknown Comments:11 [facility] 01-29-2025 Note Date of Service 07/01 [...] started on IV amiodarone and transferred to [place] for ICD evaluation. Echocardiogram repeated during this [...] YOSI VERA MD on 07/01/2024 03:19 PM [facility] [id number] Note Discharge Instructions Thank you for allowing [facility] to assist you with your healthcare needs. The following is importantdischarge information regarding your hospital visit. Your Diagnosis VT (ventricular tachycardia) What to do next Scheduled Follow-Up Appointments Appointment Type When Where Contact Information StatusCV Incision Check 07/16/2024 09:45 AM EST [facility] Confirmed CV Office Procedure ICD 09/29/2024 01:45 PM EDT [facility] Confirmed CV Remote Procedure HM 12/30/2024 06:45 PM EDT [facility] Confirmed Follow Up Appointments Follow Up with ELBA WOOD MD When:Within 5 to 7 days Where:[address] [place] [address] [phone] Follow Up with SEDRICK ALEXANDER MD When:Within 5 to 7 days Where:[address] [place] [address] [phone] Follow Up with Discharge to Left Hand at [facility] Level of Care When:Within 1-2 days Follow Up with JESSI OLGUIN MD When:Within 1-2 days [facility] [address] [place] [address]- Additional Information: Please call the office to schedule a hospital follow up appointment. Follow Up with READMISSION RISK SCORE Additional Information: 11 Follow Up with INCISION CHECK When:07/16/2024 09:45 AM EST Where:[address] [place], [place] [address]- [phone] Follow Up with DEVICE CLINIC When:09/29/2024 01:45 PM EDT Where:[address] [facility] [address] [place] [address]- [phone] The Following Activity and Diet Have Been [...] Once a day Refills: 3 Pickup at [facility] New metoprolol (Toprol-XL 25 mg oral tablet, extended release) 1 tab(s) by mouth Once a day with a meal Refills: 3 Pickup at [facility] New ramipril (ramipril 2.5 mg oral capsule) 1 cap by mouth Once a day Refills: 3 Pickup at [facility] Changed rivaroxaban (Xarelto 20 mg oral tablet) 1 tab(s) by mouth With supper Pickup at [facility] Unchanged cholecalciferol (Vitamin D3) 100 Microgram [...] TABLET BY MOUTH EVERY DAY Pharmacy Information [facility]: [address] [place], [place] [phone] Please take this list to your next doctor s visit. Bring all medications you take, including over the counter medications, herbals and other supplements with you to your doctor s visit. Patients and families are reminded to discard old lists and to update any records with all medication providers or retail pharmacies. Medication Leaflets ramipril (DIMA i pril) Vilma What is the most important information I [...] have an allergic reaction if you are -[place]. Call your doctor at once if you [...] may report side effects to FDA at 6-045-DIY-1116. What other drugs will affect ramipril? Tell [...] may affect ramipril. This includes prescription and zhfk-zgl-ijwkjwk medicines, vitamins, and herbal products. Not all [...] to ensure that the information provided by Joome. ('Multum') is accurate, up-to-date, and complete, but no guarantee is made to that effect. Drug information contained herein may be time sensitive. In[employer] information has been compiled for use by healthcare practitioners and consumers in the [place] and therefore InStream [employer] does not warrant that uses outside of the [place] are appropriate, unless specifically indicated otherwise. Nu-B-2Bs drug information does not endorse drugs, diagnose patients or recommend therapy. Nu-B-2Bs drug information isan informational resource designed to [...] effective or appropriate for any given patient. [employer] does not assume any responsibility for any aspect of healthcare administered with the aid of information InStream Media provides. The information contained herein is not intended to cover all possible uses, directions, precautions, warnings, drug interactions, allergic reactions, or adverse effects. If you have questions about the drugs you are taking, check with your doctor, nurse or pharmacist. Copyright 3700-0519 Joome. Version: 15.01. Revision Date: 10/03/2018. Education Materials [...] sends information from the device to your wreath maker (heart doctor) office. How will I get [...] where you sleep. The monitor will automatically garbage pick up man heart signals and send the information to [...] you have questions. [facility]: [phone] Ask for the Device Clinic or joe-in extension 1111 or 1200 when prompted. Device Clinic Location: [facility] (not the physician office building). Enter the [facility] and take the elevators to the [...] Your device card will tell you the staging technician. Using the search box: Solfo: Daina Kennyator quick start o Patient Help: Medtronic: MyCareLink quick start o Patient Help: St Tom (Matthews): [email or web address] quick start o Patient Help: Other important [...] not touch the CB radio antenna or [facility] radio antenna that are in operation. Do not touch spark plugs or distributor wires of a running car or code enforcement inspector. Avoid the fenced enclosure areas of a [...] ICD. You must tell your surgeon or Cooker Casing before you undergo any procedure or surgery. This includes, but is not limited to: any surgery, colonoscopy and/or EGD s. Additional Information VACCINATE! IT SAVES LIVES! Members of the community who have not yet received the COVID-19 vaccine and would like to receive it can visit one of [facility] vaccine clinics. There are many vaccine clinic locations within the [facility]. For locations and available times, please visit [email or web address]/. It is important to note that some COVID mobile vaccine clinics are held outdoors and may be canceled in rainy or stormy conditions. To learn more about pediatric vaccinations (ages 5-11), we invite you to visit the [facility] webpage. https://www.[email or web address].org/pages/[email or web address]-Baftu-Virutqgvuhz-Yccebdzsyk-Uyvoj-Qng stions.htmlTo learn more about the COVID-19 vaccine, we invite you to visit the CDC website for a list of frequently asked questions.https://www.cdc.gov/coronavirus/2019-ncov/vaccines/faq.html [facility] Patient Portal Access Instructions: Stay connected with your healthcare team and access your personal medical information anytime with the [facility] Patient Portal. Please follow the directions below to create your [facility] account: 1.Access the email account you provided upon registration to the hospital/physician office.2.Look for an invitation email from [facility].3.Open the email and access the invitation link: AcceptInvitation to [facility].4.Fill in the required gaytan to create your account. To access your account, visit [email or web address]. Click the blue button labeled Access Patient [...] who you will allowto register on the [facility] One[facility] Patient Portal for access to your information. You can also access the [facility] One[facility] Patient Portal on the [place] Anywhere isabela. Simply click on Patient Portal and then log into your account. If you would like to receive a full copy of your medical records, please contact the [facility] Medical Records Department by calling [phone], Saturday through Saturday between 8 a.m. and [...] Call your local pharmacy or go to [email or web address] to find one close to you.3.Make use of household items: Use cat litter or old coffee grounds to dispose medications if other options arenot available. Mix your drugs with these household products, seal them in an airtight container andthrow it into the garbage. Call [facility]: [phone] to be sure your drugs can be [...] been reviewed and explained to me and I,JOSHUA TURCIOSIP understand my current condition and have read and understand these discharge instructions. I have received a written copy of the plan/instructions. If I have questions, I am aware that I should contact my doctor. Patient/Mining Helper Signature: Date/Time: Relationship to Patient: Witness Name/Signature: Date/Time: [facility] Hospital[facility]fjyrnra04-33-3365 Note Discharge Instructions Thank you for allowing [facility] to assist you with your healthcare needs. The following is importantdischarge information regarding your hospital visit. Your Diagnosis VT (ventricular tachycardia) What to do next Scheduled Follow-Up Appointments Appointment Type When Where Contact Information StatusCV Incision Check 07/16/2024 09:45 AM EST [facility] Confirmed CV Office Procedure ICD 09/29/2024 01:45 PM EDT [facility] Confirmed CV Remote Procedure HM 12/30/2024 06:45 PM EDT [facility] Confirmed Follow Up Appointments Follow Up with ELBA WOOD MD When:Within 5 to 7 days Where:[address] [facility] [address] [facility] [phone] Follow Up with SEDRICK ALEXANDER MD When:Within 5 to 7 days Where:[address] [facility] [place] [address] [phone] Follow Up with Discharge to Left Hand at [facility] Level of Care When:Within 1-2 days Follow Up with JESSI OLGUIN MD When:Within 1-2 days Where:[facility] [address] [place] [address]- Additional Information: Please call the office to schedule a hospital follow up appointment. Follow Up with READMISSION RISK SCORE Additional Information: 11 Follow Up with INCISION CHECK When:07/16/2024 09:45 AM EST Where:[address] [place], [place] [address]- [phone] Follow Up with DEVICE CLINIC When:09/29/2024 01:45 PM EDT Where:[address] [place] [address] [phone] The Following Activity and Diet Have Been [...] Signed By - Ordered -- 07/01/24 13:07:00 EMILEE, SEDRICK ALEXANDER MD Transfer of Care Prognosis - Ordered -- Fair, Patient Aware: Yes Transfer of Care Rehab Potential - Ordered -- Rehab potential sarwat, 07/01/24 13:07:45 EMILEE Someone Will Contact You Regarding These Home [...] Once a day Refills: 3 Pickup at [facility] New metoprolol (Toprol-XL 25 mg oral tablet, extended release) 1 tab(s) by mouth Once a day with a meal Refills: 3 Pickup at [facility] New ramipril (ramipril 2.5 mg oral capsule) 1 cap by mouth Once a day Refills: 3 Pickup at [facility] Changed rivaroxaban (Xarelto 20 mg oral tablet) 1 tab(s) by mouth With supper Pickup at [facility] Unchanged cholecalciferol (Vitamin D3) 100 Microgram [...] TABLET BY MOUTH EVERY DAY Pharmacy Information [facility]: [address] [place], [place] [id number] [phone] Please take this list to your next [...] have an allergic reaction if you are -Uruguayan. Call your doctor at once if you [...] may report side effects to FDA at [phone]-KTZ-5158. What other drugs will affect ramipril? Tell [...] may affect ramipril. This includes prescription and lunp-veo-vzmhzep medicines, vitamins, and herbal products. Not all [...] to ensure that the information provided by Joome. ('Multum') is accurate, up-to-date, and complete, but no guarantee is made to that effect. Drug information contained herein may be time sensitive. InStream [employer] information has been compiled for use by healthcare practitioners and consumers in the [place] and therefore InStream Media does not warrant that uses outside of the [place] are appropriate, unless specifically indicated otherwise. Nu-B-2Bs drug information does not endorse drugs, diagnose patients or recommend therapy. Nu-B-2Bs drug information isan informational resource designed to [...] effective or appropriate for any given patient. [employer] does not assume any responsibility for any aspect of healthcare administered with the aid of information InStream [employer] provides. The information contained herein is not intended to cover all possible uses, directions, precautions, warnings, drug interactions, allergic reactions, or adverse effects. If you have questions about the drugs you are taking, check with your doctor, nurse or pharmacist. Copyright 6507-4598 Joome. Version: 15.. Revision Date: 10/03/2018. Education Materials [...] sends information from the device to your wreath maker (heart doctor) office. How will I get [...] where you sleep. The monitor will automatically garbage pick up man heart signals and send the information to [...] you have questions. [facility]: [phone] Ask for the Device Clinic or joe-in extension 1111 or 1200 when prompted. Device Clinic Location: [facility] (not the physician office building). [facility] to [facility] [...] Your device card will tell you the staging technician. Using the search box: Solfo: Lattitude Communicator quick start o Patient Help: Medtronic: MyCareLink quick start o Patient Help: St Tom (Matthe[place]): [email or web address] quick start o Patient Help: Other important [...] i.e.: large speakers, TV towers, magnets in [employer] car shops. Staying 6-12 feet away is okay. Do not touch the CB radio antenna or [facility] radio antenna that are in operation. Do not touch spark plugs or distributor wires of a running car or code enforcement inspector. Avoid the fenced enclosure areas of a [...] ICD. You must tell your surgeon or Cooker Casing before you undergo any procedure or surgery. This includes, but is not limited to: any surgery, colonoscopy and/or EGD s. Additional Information VACCINATE! IT SAVES LIVES! Members of the community who have not yet received the COVID-19 vaccine and would like to receive it can visit one of [facility] vaccine clinics. There are many vaccine clinic locations within the [facility]. For locations and available times, please visit https://[email or web address]/. It is important to note that some COVID mobile vaccine clinics are held outdoors and may be canceled in rainy or stormy conditions. To learn more about pediatric vaccinations (ages 5-11), we invite you to visit the [facility] webpage. https://www.[email or web address].org/pages/9164-Swugs-Zklsaqbttti-Cfugtmpral-Tednu-Pwh stions.htmlTo learn more about the COVID-19 vaccine, we invite you to visit the CDC website for a list of frequently asked questions.https://www.cdc.gov/coronavirus/2019-ncov/vaccines/faq.html [facility] Patient Portal Access Instructions: Stay connected with your healthcare team and access your personal medical information anytime with the [facility] Patient Portal. Please follow the directions below to create your [facility] account: 1.Access the email account you provided upon registration to the hospital/physician office.2.Look for an invitation email from [facility].3.Open the email and access the invitation link: AcceptInvitation to [facility].4.Fill in the required gaytan to create your account. To access your account, visit [email or web address]. Click the blue button labeled Access Patient [...] who you will allowto register on the [facility] Patient Portal for access to your information. You can also access the [facility] HALFPOPSChart Patient Portal on the [facility] Anywhere isabela. Simply click on Patient Portal and then log into your account. If you would like to receive a full copy of your medical records, please contact the [facility] Medical Records Department by calling [phone], Saturday through Saturday between 8 a.m. and [...] Call your local pharmacy or go to http://bit.ly/3M3Eh5i to find one close to you.3.Make use of household items: Use cat litter or old coffee grounds to dispose medications if other options arenot available. Mix your drugs with these household products, seal them in an airtight container andthrow it into the garbage. Call [facility]: [phone] to be sure your drugs can be [...] aware that I should contact my doctor. Patient/Mining Helper Signature: Date/Time: Relationship to Patient: Witness Name/Signature: Date/Time: [facility] HospitalNyidyoiz74-31-3529 Note Discharge Instructions Thank you for allowing [facility] to assist you with your healthcare needs. The following is importantdischarge information regarding your hospital visit. Your Diagnosis VT (ventricular tachycardia) What to do next Scheduled Follow-Up Appointments Appointment Type When Where Contact Information StatusCV Incision Check 07/16/2024 09:45 AM EST [facility] Confirmed CV Office Procedure ICD 09/29/2024 01:45 PM EDT [facility] Confirmed CV Remote Procedure HM 12/30/2024 06:45 PM EDT [facility] Confirmed Follow Up Appointments Follow Up with ELBA WOOD MD When:Within 5 to 7 days Where:[address] [facility] [address] [place] [phone] Follow Up with SEDRICK ALEXANDER MD When:Within 5 to 7 days Where:[address] [facility] [address] [place] [phone] Follow Up with Discharge to Left Hand at [facility] When:Within 1-2 days Follow Up with JESSI OLGUIN MD When:Within 1-2 days Where:[facility] [address] [place] [address]- Additional Information: Please call the office to schedule a hospital follow up appointment. Follow Up with READMISSION RISK SCORE Additional Information: 11 Follow Up with INCISION CHECK When:07/16/2024 09:45 AM EST Where:[address] [place] [phone]- [phone] Follow Up with DEVICE CLINIC When:09/29/2024 01:45 PM EDT Where:[address] [place] [address]- [phone] The Following Activity and Diet Have Been [...] Once a day Refills: 3 Pickup at [facility] New metoprolol (Toprol-XL 25 mg oral tablet, extended release) 1 tab(s) by mouth Once a day with a meal Refills: 3 Pickup at [facility] New ramipril (ramipril 2.5 mg oral capsule) 1 cap by mouth Once a day Refills: 3 Pickup at [facility] Changed rivaroxaban (Xarelto 20 mg oral tablet) 1 tab(s) by mouth With supper Pickup at [employer] [facility] [employer] [facility] Unchanged cholecalciferol (Vitamin D3) 100 [...] TABLET BY MOUTH EVERY DAY Pharmacy Information [facility]: [address] [place], [place] [id number] [phone] Please take this list to your next [...] to receive it can visit one of [facility] vaccine clinics. There are many vaccine clinic locations within the [facility]. For locations and available times, please visit [email or web address]/. It is important to note that some COVID mobile vaccine clinics are held outdoors and may be canceled in rainy or stormy conditions. To learn more about pediatric vaccinations (ages 5-11), we invite you to visit the [facility] webpage. https://www.[email or web address]/pages/4334-Hwakv-Dxuqpqpdwrv-Ofaxnzzjld-Zelow-Pfk stions.htmlTo learn more about the COVID-19 vaccine, we invite you to visit the CDC website for a list of frequently asked questions.https://www.cdc.gov/coronavirus/2019-ncov/vaccines/faq.html [facility] Patient Portal Access Instructions: Stay connected with your healthcare team and access your personal medical information anytime with the [facility] Patient Portal. Please follow the directions below to create your [facility] account: 1.Access the email account you provided upon registration to the hospital/physician office.2.Look for an invitation email from [facility].3.Open the email and access the invitation link: AcceptInvitation to [employer].4.Fill in the required gaytan to create your account. To access your account, visit [employer]hart. Click the blue button labeled Access Patient Portal and then log in with the username and password that you created in the steps above. You will be able to view your test results, lab results, a summary of your visits, upcoming appointments and more. There is also a convenient messaging option where you can send secure messages to your p [email or web address]. In addition, you will have the ability to download any documents or summaries to your computer and/or send the information securely to a physician. Remember that your healthcare information is confidential, so carefully consider who you will allowto register on the [employer] Patient Portal for access to your information. You can also access the [employer] Patient Portal on the [employer] isabela. Simply click on Patient Portal and then log into your account. If you would like to receive a full copy of your medical records, please contact the [facility] Medical Records Department by calling [phone], Saturday through Saturday between 8 a.m. and [...] Call your local pharmacy or go to [email or web address] to find one close to you.3.Make use of household items: Use cat litter or old coffee grounds to dispose medications if other options arenot available. Mix your drugs with these household products, seal them in an airtight container andthrow it into the garbage. Call [facility]: [phone] to be sure your drugs can be [...] aware that I should contact my doctor. Patient/Mining Helper Signature: Date/Time: Relationship to Patient: Witness Name/Signature: Date/Time: [facility] HospitalUehfnbxd71-27-2693 Physician Discharge summary Discharge Diagnosis Ventricular tachycardia PEA arrest Hypertension Atrial fibrillation Hospital Course Presented to [facility] on 06/[facility]/24 after unresponsive episode during breakfast. [...] Echo showed preserved EF 60%. Patient underwent [facility] s/p PCI/KESHIA to RCA on 06/25/24. Documentation on 06/27/24 morning states that code blue was called for sustained Vtach with a pulse.Initial episode self resolved, 2nd and 3rd episodes patient was defibrillated. Started on IV amiodarone and transferred to [facility] for further evaluation and management. EP was consulted, patient warranted ICD for secondary prevention. Patient tolerated procedure well without any periprocedural complications, postprocedural x-ray didnot reveal any pneumothorax. Patient will follow-up with EP for potential cardioversion and sotalol. Allergies Shellfish Hives Procedures ICD placement Consults Consult to Physician - Ordered -- 06/27/24 12:36:00 EMILEE, ELBA WOOD MD, Routine, vtach Consult to Physician - Ordered -- 06/27/24 12:41:00 EST, SEAN MUNOZ MD, Routine, ?hypoxia, transferred from [facility], they were treating for sepsis/pneumonia Consult to Spiritual Care Team (Consult to Pastoral Care) - Ordered -- 06/27/24 12:57:22 EST Consult to Tobacco Cattle Dealer - Ordered -- 06/27/24 12:49:00 EST, Once [...] When:Within 5 to 7 days Where:[address] [address] [phone] Follow Up with SEDRICK ALEXANDER MD When:Within 5 to 7 days Where:[address] [address] [phone] Follow Up with Discharge to [facility] at [facility] [place] When:Within 1-2 days Follow Up with JESSI OLGUIN MD When:Within 1-2 days [facility] [address] [place] [address]- Additional Information: Please call the office to schedule a hospital follow up appointment. Follow Up with [facility] Additional Information: 11 Follow Up with [facility] When:07/16/2024 09:45 AM EST Where:[address] [address]- [phone] Follow Up with [facility] When:09/29/2024 01:45 PM EDT Where:[address] [address]- [phone] Follow Up Appointments Transfer of Care OT [...] ANT JACKSON MD on 07/01/2024 01:09 PM [facility] HospitalFewemwia32-53-1148 Nurse Progress note ACNS documentation has been reviewed and all medications were verified prior to administration. Digitally Signed by Jannie Forbes Payroll Professional on 07/01/2024 12:23 PM [facility] HospitalKfpujuhy69-15-9424 Cardiology Progress note Subjective No acute overnight [...] surgery), depression, anemia, COPD, hypothyroidism Presented to [facility] on 06/24/24 after unresponsive episode during breakfast. [...] Echo showed preserved EF 60%. Patient underwent [facility] s/p PCI/KESHIA to RCA on 06/25/24. [...] ANT JACKSON MD on 07/01/2024 12:22 PM [facility] HospitalRtipykyg20-29-7341 Note Date of Service 07/01/2024 10:39:18 Chief Complaint weakness Subjective 74-year-old male with medical history of IDDM 2, bilateral legal blindness, COPD, no home oxygen requirements, hypothyroidism, depression, chronic iron deficiency anemia, HFpEF, hyperlipidemia, atrial fibrillation on chronic Xarelto. Patient presents to the hospital for nvl-lh-tczvyvtt cardiac arrest patient was in V. tach transferred to [facility] patient initiated on amiodarone and heparin [...] on examination Abdomen: soft, non distended NT EXPERIENCE DESIGN DIRECTOR: Alert, No focal deficits identified. aaox3. Blind [...] DHIRAJ KIM MD on 07/01/2024 10:44 AM [facility] HospitalQmunqkuz33-95-8672 Note* Exam Date Time Procedure Performing Provider Status 07/01/24 9:36 AM XR Chest 2 Views ALEJANDRO CARRENO MD; [facility] (Verified) [id number] ORIGINAL EXAMINATION: TWO XRAY VIEWS OF THE [...] 07/01/2024 9:40:30 AM Ordering Provider: MORA SORIA [facility] HospitalKflpeoju04-55-6520 Note. MICRO - Microbiology PROCEDURE: Legionella Urine [...] Locations *1: This test was performed at: [address], [facility]01[facility] Note* Exam Date Time Procedure Performing Provider Status 06/30/24 6:18 PM XR Chest 1 View Contributor_system, ANTONIO JI; Auth (Verified) [id number] ORIGINAL EXAMINATION: ONE XRAY VIEW OF THE [...] Wood Putnam MD Preliminary Report By: Alejandro Clayso Electronically signed By Wood Putnam MD Dictated Date: 06/30/2024 6:25:39 PM Prelim Date: 06/30/2024 6:28:30 PM Sign Date: 06/30/2024 8:46:51 PM Ordering Provider: [facility]01-28-2025 Cardiology Progress note Subjective No acute [...] new skin integrity impairments, Constant order Cushion Federicale 17x17 Chair Medium, Valveless ([id number])(Waffle Cushion Chair Medium ([id number])), 06/29/24 14:17:00 EST, Quantity 1, Weight: 110.5, 06/29/24 14:17:00 EST Hydrofiber Aquacel Silver Dressing ([id number]), 06/29/24 14:17:00 EST, Quantity 2, Weight: 110.5, [...] surgery), depression, anemia, COPD, hypothyroidism Presented to [facility] on 06/24/24 after unresponsive episode during breakfast. [...] Echo showed preserved EF 60%. Patient underwent [facility] s/p PCI/KESHIA to RCA on 06/25/24. [...] ANT JACKSON MD on 06/30/2024 12:22 PM [facility] HospitalMjvvxcgo25-55-4306 Anesthesiology Consult note Patient: ARMIN TURCIOS Age: [...] (2) Tobacco use Ventricular tachycardia seen on threat monitoring analyst Histories Past Medical History: No active or resolved past medical history items have been selected or recorded. Family History: Cancer Mother Heart disease Brother Heart attack Brother Procedure history: Coronary angioplasty ([id number]) on 06/24/2024 at 74 Years. Hernia repair ([id number]). Social History: Social & Psychosocial Habits Alcohol [...] Oral36.4 DegC (JUN 30 10:23) Heart Rate Hruoxomrz96 bpm (JUN 30 11:28) IEX406 mmHg (JUN 30 10:23) DBP86 mmHg (JUN [...] range of motion. Integumentary: Intact, Warm, Dry, [place]. Neurologic: Alert, Oriented. Review / Management Results [...] 28)H 60.4(JUN 28) . Assessment and Plan [place] [employer] Anesthesiologists (ASA) physical status classification: Class IV. Anesthetic Preoperative Plan Premedication: None. Anesthetic technique: MAC. Induction: intravenously. Maintenance airway: Mask. Special techniques: Warming device, no Extracorporeal. Special Monitoring. Postoperative pain management: Per surgeon. Risks discussed: nausea, vomiting, headache, sore throat, dental injury, hypotension, allergic reaction, serious complications. Informed consent: signed by patient. Beta Anthony: Beta Anthony Taken Within 24 Hrs: Yes. Digitally Signed by GENARO LAL DO on 06/30/2024 03:45 PM [facility] HospitalEiithref18-34-8577 Cardiology Progress note Subjective No acute overnight [...] order Cushion Waffle 17x17 Chair Medium, Valveless ([id number])(Waffle Cushion Chair Medium ([id number])), 06/29/24 14:17:00 EST, Quantity 1, Weight: 110.5, 06/29/24 14:17:00 EST Hydrofiber Aquacel Silver Dressing ([id number]), 06/29/24 14:17:00 EST, Quantity 2, Weight: 110.5, [...] surgery), depression, anemia, COPD, hypothyroidism Presented to [facility] on 06/24/24 after unresponsive episode during breakfast. [...] Echo showed preserved EF 60%. Patient underwent [facility] s/p PCI/EKSHIA to RCA on 06/25/24. Documentation on 06/27/24 [...] ANT JACKSON MD on 06/30/2024 12:22 PM [facility] HospitalCpnhdqhr04-40-6155 Note* Exam Date Time Procedure Performing Provider Status 06/30/24 11:20 AM XR Chest 1 View KARRI GROSS MD; [facility] (Verified) [id number] ORIGINAL EXAMINATION: ONE XRAY VIEW OF THE [...] 06/30/2024 11:26:40 AM Ordering Provider: DHIRAJ KIM [facility] HospitalJhtwwufu91-19-7944 Note Date of Service 06/30/2024 11:02:48 Chief Complaint Cough, SOB, dry mouth Subjective 74-year-old male with medical history of IDDM 2, bilateral legal blindness, COPD, no home oxygen requirements, hypothyroidism, depression, chronic iron deficiency anemia, HFpEF, hyperlipidemia, atrial fibrillation on chronic Xarelto. Patient presents to the hospital for qau-fh-klxkpebn cardiac arrest patient was in V. tach transferred to [facility] patient initiated on amiodarone and heparin [...] Extremities: No edema, No cyanosis or clubbing EXPERIENCE DESIGN DIRECTOR: Alert, No focal deficits identified. aaox3 Weight [...] DHIRAJ KIM MD on 06/30/2024 11:11 AM [facility] HospitalAgcabzzh00-09-7803 Cardiology Consult note Date of Service June 29, 2024 History of Present Illness Patient is a 74-year-old male with medical history significant for persistent atrial fibrillation on Xarelto, chronic right bundle branch, hyperlipidemia, type 2 diabetes, COPD, former tobacco use, hypothyroidism, bilateral blindness, history of HFpEF who presents as a transfer from [facility] after an unresponsive event on June 24, 2024. Patient was noted to be in ventriculartachycardia status post defibrillation, patient was neurologically intact. After being admitted to the floor for concern for sepsis and aspiration pneumonia, patient continued to have sinus bradycardia with pauses and troponins were in the 400s hence patient underwent left heart cath which revealedleft main 30% stenosis, mild luminal irregularities of LAD, proximal circumflex 40% stenosis, ostial RCA 80% stenosis status post PCI of RCA on 06/25/2024. On 06/27/2024, patient apparently had anotherepisode of unresponsiveness and was noted to be [...] Echocardiogram was performed at outside hospital [facility] on 06/25/2024 which showed estimated EF of [...] started on IV amiodarone and transferred to [place] for ICD evaluation. Echocardiogram repeated during this [...] YOSI VERA MD on 06/29/2024 04:24 PM [facility] HospitalWeweutiz36-09-6885 Cardiology Progress note Subjective No acute overnight [...] order Cushion Waffle 17x17 Chair Medium, Valveless ([id number])(Waffle Cushion Chair Medium ([id number])), 06/29/24 14:17:00 EST, Quantity 1, Weight: 110.5, 06/29/24 14:17:00 EST Hydrofiber Aquacel Silver Dressing ([id number]), 06/29/24 14:17:00 EST, Quantity 2, Weight: 110.5, [...] surgery), depression, anemia, COPD, hypothyroidism Presented to [facility] on 06/24/24 after unresponsive episode during breakfast. [...] Echo showed preserved EF 60%. Patient underwent [facility] s/p PCI/KESHIA to RCA on 06/25/24. [...] ANT JACKSON MD on 06/29/2024 04:15 PM [facility] HospitalQqsmrxwk71-71-4740 Cardiology Progress note Subjective No acute overnight [...] order Cushion Waffle 17x17 Chair Medium, Valveless ([id number])(Waffle Cushion Chair Medium ([id number])), 06/29/24 14:17:00 EST, Quantity 1, Weight: 110.5, 06/29/24 14:17:00 EST Hydrofiber Aquacel Silver Dressing ([id number]), 06/29/24 14:17:00 EST, Quantity 2, Weight: 110.5, [...] surgery), depression, anemia, COPD, hypothyroidism Presented to [facility] on 06/24/24 after unresponsive episode during breakfast. [...] Echo showed preserved EF 60%. Patient underwent [facility] s/p PCI/KESHIA to RCA on 06/25/24. [...] ANT JACKSON MD on 06/29/2024 04:15 PM [facility] HospitalAjezvkkd38-18-2841 Note Reason for Consultation Admission From: Home [...] Ankle Left Outer - Skin Abnormality Color: [place], White, Yellow Ankle Left Outer - Skin [...] Sheridan Gross RN on 06/29/2024 11:30 AM [facility] HospitalLhgnsbxm43-26-4662 Cardiology Consult note Date of Service June 29, 2024 History of Present Illness Patient is a 74-year-old male with medical history significant for persistent atrial fibrillation on Xarelto, chronic right bundle branch, hyperlipidemia, type 2 diabetes, COPD, former tobacco use, hypothyroidism, bilateral blindness, history of HFpEF who presents as a transfer from [facility] after an unresponsive event on June 24, [...] EKG was obtained and he went into tach again, was unresponsive, underwent 1 defibrillation. Was advised to start on IV amiodarone and transfer was facilitated for ICD evaluation. Echocardiogram was performed at outside hospital [facility] on 06/25/2024 which showed estimated EF of [...] started on IV amiodarone and transferred to [place] for ICD evaluation. Echocardiogram repeated during this [...] YOSI VERA MD on 06/29/2024 04:24 PM [facility] HospitalIjczadhk06-15-9789 Note Date of Service 06/29/2024 Chief Complaint [...] [facility] after having lvt-fr-hymveocs cardiac arrest, was noted to have wide-complex tachycardia, apparently underwent a heart cath 06/25/2024 at [facility] with RCA stent, CAD, echocardiogram with preserved ejection fraction, apparently had a CODE BLUE called and was noted to be in V. tach, received multiple shocks, was then transferred to [place]. Per documentation, patient was initially a sepsis [...] fibrillation, currently rate controlled, known history Possible wcu-ke-kcfyswhd cardiac arrest CAD status post PCI to [...] the attending physician on service using the 'Wikidot' dictation software. Please excuse any grammatical errors, repetitions/duplications if any are present in the entirety of this note. Thank you. Digitally Signed by PITER BRUSH MD on 06/29/2024 09:54 AM [facility] HospitalTtkmkmpz57-17-1867 Note* Exam Date Time Procedure Performing Provider Status 06/29/24 9:34 AM VL Venous US/Doppler One Arm (for DVT). ZANA SALCEDO MD; Auth (Verified) [facility] HospitalSpnqolel52-62-1399 Note* Exam Date Time Procedure Performing Provider Status 06/29/24 7:37 AM Echocardiogram, Adult - CV SVETLANA PARMAR MD; Auth (Verified) [facility] HospitalXzfooxgq63-10-4773 Note Date of Service 06/28/2024 Chief Complaint [...] [facility] after having lwk-cc-grdhqlvh cardiac arrest, was noted to have wide-complex tachycardia, apparently underwent a heart cath 06/25/2024 at [facility] with RCA stent, CAD, echocardiogram with preserved ejection fraction, apparently had a CODE BLUE called and was noted to be in V. tach, received multiple shocks, was then transferred to [place]. Per documentation, patient was initially a sepsis [...] EST, admit Electrocardiogram (EKG) - InProcess -- 06/27/24 12:23:00 EST Assessment/Plan Acute hypoxic respiratory failure Cardiogenic pulmonary edema Hyperglycemia with history of type 2 diabetes mellitus Nausea Slow transit constipation Wide-complex tachycardia, concerning for V. tach Atrial fibrillation, currently rate controlled, known history Possible seg-wy-xwpvldwb cardiac arrest CAD status post PCI to [...] of care discussed with patient and his dcmipw-gj-uao who was present at bedside. This is a note transcribed by me, the attending physician on service using the 'Dragon' dictation software. Please excuse any grammatical errors, repetitions/duplications if any are present in the entirety of this note. Thank you. 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 [...] Echo showed preserved EF 60%. Patient underwent [facility] s/p PCI/KESHIA to RCA on 06/25/24. [...] surgery), depression, anemia, COPD, hypothyroidism Presented to [facility] on 06/24/24 after unresponsive episode during breakfast. [...] Echo showed preserved EF 60%. Patient underwent [facility] s/p PCI/KESHIA to RCA on 06/25/24. [...] CHANEL EDWARDS DO on 06/27/2024 03:47 PM [facility] HospitalWbniwtqc19-51-9431 Respiratory therapy Hospital Progress note Respiratory Therapy Evaluation Entered On: 06/27/2024 19:14 EST Performed On: 06/27/2024 19:14 EST by Maddy Cabral RRT Respiratory Therapy Evaluation RT Assessment [Frequency/Schedule] : Triage score 6-10, change frequency to TIDRT and Albuterol Q2hRT PRN per protocol Maddy Cabral RRT - 06/27/2024 23:19 EST RT Evaluation Steps : Chart review completed, Assessment completed: RR, HR, Auscultation, Cough, Patient Interview completed Respiratory Evaluation Triage Score : (6-10) Freq: TIDRT & Albuterol Q2hRT prn Maddy Cabral HEALTH EDUCATION DIRECTOR - 06/27/2024 21:26 EST Surgical Status : [...] (RT) : Clear to auscultation Maddy Cabral RRT - 06/27/2024 19:14 EST Digitally Signed by Maddy Cabral RRT on 06/27/2024 11:22 PM [facility] HospitalTidlorex03-58-0597 Note Date of Service 06/27/2024 Reason for Consultation Medical management Referring Physician Chanel Edwards DO History of Present Illness Patient had 1 was this is a 74-year-old male with a known history of atrial fibrillation on Xarelto, HFpEF, insulin-dependent type 2 diabetes mellitus, hyperlipidemia, blindness, depression, iron deficiency anemia, COPD, vitamin D deficiency, hypothyroidism, chronic anemia, former tobacco user, who[facility] for an unresponsive episode. Patientwas [...] cath with evidence of CAD, apparently had adrug-eluting stent to the RCA on 06/25/2024. Currently on the morning of 06/27/2024, patient had a CODE BLUE for sustained V. tach but was noted to have a pulse, initial episode self resolved, second and third episodes patient was defibrillated. He started on IV amiodarone. He was transferred to the [facility] for further care. Currently, patient is [...] V. tach Bradycardia with brief pauses Possible dcy-ro-iahghkhp cardiac arrest CAD status post PCI to [...] the attending physician on service using the 'Wikidot' dictation software. Please excuse any grammatical errors, [...] PITER BRUSH MD on 06/27/2024 06:10 PM [facility] HospitalKewgbmzx59-72-2000 Evaluation + Plan noteExtracted from: Title:History and [...] surgery), depression, anemia, COPD, hypothyroidism Presented to [facility] on 06/24/24 after unresponsive episode during breakfast. [...] Echo showed preserved EF 60%. Patient underwent [facility] s/p PCI/KESHIA to RCA on 06/25/24. 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 [...] Echo showed preserved EF 60%. Patient underwent [facility] s/p PCI/KESHIA to RCA on 06/25/24. Documentation [...] surgery), depression, anemia, COPD, hypothyroidism Presented to [facility] on 06/24/24 after unresponsive episode during breakfast. [...] Echo showed preserved EF 60%. Patient underwent [facility] s/p PCI/KESHIA to RCA on 06/25/24. [...] CHANEL EDWARDS DO on 06/27/2024 03:47 PM [facility] HospitalQawzxppq23-19-7961 Note* Exam Date Time Procedure Performing Provider Status 06/27/24 12:47 PM XR Chest 1 View CHAIM WORKMAN DO; [facility] (Verified) [id number] ORIGINAL EXAMINATION: ONE XRAY VIEW OF THE [...] 06/27/2024 1:04:58 PM Ordering Provider: CHANEL EDWARDS [facility] HospitalXrpanehr70-93-4946 Note* Exam Date Time Procedure Performing Provider Status 06/27/24 12:25 PM Electrocardiogram - EKG - CV CAMILO ALEXANDER MD; Auth (Verified) ECG Final Report ATRIAL FIBRILLATION RIGHT BUNDLE BRANCH BLOCK Electronic Signature: SEDRICK ALEXANDER MD 06/28/2024 16:43:43 [facility] HospitalNglqqtdv04-79-1300 [facility]* Exam Date Time Procedure Performing Provider Status 06/27/24 12:12 PM Electrocardiogram - EKG - CV CAMILO ALEXANDER MD; Auth (Verified) ECG Final Report ATRIAL FIBRILLATION Ventricular premature complex RIGHT BUNDLE BRANCH BLOCK Electronic Signature: SEDRICK ALEXANDER MD 06/28/2024 16:43:33 [facility] HospitalRvnwkred32-72-2112 Evaluation note* Diagnosis Onset Date Resolution Status Admit Date History of coronary artery stent placement June 25, 2024 acute September 01 7:52am Single implantable cardioverter-defibrillator (ICD) in situ acute September 01, 2024 7:52am Ventricular tachycardia acute A 2024 7:52am Atrial fibrillation chronic September 01, 2024 7:52am Essential (primary) hypertension chronic September 01, 2024 7:52am Hyperlipidemia chronic September 01, 2024 7:52am DM type 2 (diabetes mellitus, type 2) chronic September 01 9:02pm Chest pain resolved September 01 9:02pm Pneumonia resolved September 01 9:02pm Abnormal CT of the chest acute November 10, 2024 8:59am Bronchiectasis chronic November 10, 2024 8:59am Chronic diastolic (congestive) heart failure chronic November 10, 2024 8:59am COPD (chronic obstructive pulmonary disease) chronic November 10 8:59am Coronary artery disease acute J 2024 12:55pm Single implantable cardioverter-defibrillator (ICD) in situ acute November 14, 2024 12:55pm Atrial fibrillation chronic November 14, 2024 12:55pm V tach resolved November 14 12:55pm History of coronary artery stent placement June 25, 2024 acute December 01 8:22am Single implantable cardioverter-defibrillator (ICD) in situ acute December 01, 2024 8:22am Ventricular tachycardia acute J noé2024 8:22am Atrial fibrillation chronic December 01, 2024 8:22am Essential (primary) hypertension chronic December 01, 2024 8:22am Hyperlipidemia chronic December 01, 2024 8:22am [facility] Work Phone: [phone] 288-366401-23-2025 Evaluation note* Diagnosis Onset Date Resolution Status Admit Date History of coronary artery stent placement June 25, 2024 acute September 01 7:52am Single implantable cardioverter-defibrillator (ICD) in situ acute September 01, 2024 7:52am Ventricular tachycardia acute A 2024 7:52am Atrial fibrillation chronic September 01, 2024 7:52am Essential (primary) hypertension chronic September 01, 2024 7:52am Hyperlipidemia chronic September 01, 2024 7:52am DM type 2 (diabetes mellitus, type 2) chronic September 01 9:02pm Chest pain resolved September 01 9:02pm Pneumonia resolved September 01 9:02pm Abnormal CT of the chest acute November 10, 2024 8:59am Bronchiectasis chronic November 10, 2024 8:59am Chronic diastolic (congestive) heart failure chronic November 10, 2024 8:59am COPD (chronic obstructive pulmonary disease) chronic November 10 8:59am Coronary artery disease acute J une 2024 12:55pm Single implantable cardioverter-defibrillator (ICD) in situ acute November 14, 2024 12:55pm Atrial fibrillation chronic November 14, 2024 12:55pm V tach resolved November 14 12:55pm History of coronary artery stent placement June 25, 2024 acute December 01 8:22am Single implantable cardioverter-defibrillator (ICD) in situ acute December 01, 2024 8:22am Ventricular tachycardia acute J 2024 8:22am Atrial fibrillation chronic December 01, 2024 8:22am Essential (primary) hypertension chronic December 01, 2024 8:22am Hyperlipidemia chronic December 01, 2024 8:22am Abnormal CT of the chest acute December 25, 2024 10:35am Bronchiectasis chronic December 25, 2024 10:35am Chronic diastolic (congestive) heart failure chronic December 25, 2024 10:35am COPD (chronic obstructive pulmonary disease) chronic December 25 10:35am [facility] Work Phone: 1(228) 659-939801-22-2025 Evaluation note* Diagnosis Onset Date Resolution Status Admit Date Ventricular tachycardia acute J anuary 2024 11:02am Acute hypoxic respiratory failure resolved June 24 11:02am Aspiration pneumonia resolved Elicoe serna 2024 11:02am Cardiac arrest resolved June 242024 [...] 01, 2024 7:52am Ventricular tachycardia acute A pri2024 7:52am Essential (primary) hypertension chronic September 01, 2024 7:52am Hyperlipidemia chronic September 01, 2024 7:52am Chest pain acute September 01 9:02pm Pneumonia acute September 01 9:02pm DM type 2 (diabetes mellitus, type 2) chronic September 01 9:02pm [facility] Work Phone: 1(440) 829-817301-22-2025 Evaluation note* Diagnosis Onset Date Resolution Status Admit Date Ventricular tachycardia acute J anuary 2024 11:02am Acute hypoxic respiratory failure resolved June 24 11:02am Aspiration pneumonia resolved Eliceo serna 2024 11:02am Cardiac arrest resolved June 242024 [...] chronic September 01, 2024 7:52am Hyperlipidemia chronic Vero 1st, 2025 7:52am DM type 2 (diabetes mellitus, type 2) chronic September 01 9:02pm Chest pain resolved September 01 9:02pm Pneumonia resolved September 01 9:02pm [facility] Work Phone: 1(321) 206-742804-18-2024 Progress note Author Alejandro Talbot [facility] September 19, 2023 10:40am Note Date/Time September 19, 2023 10: 25am [facility] [address] [place] [address] Progress Note - Wound Care 09/19/23 1020 MR#: [id number] Acct: [id number] Name: ARMIN TURCIOS Rep #:[id number] : 1950 73 From: Alejandro bar DPM PCP: Dr. Jessi Olguin MD Status:REG R Location: ADDENDUM by MEGAN Talbot on 09/19/23 [...] have been following with Dr. Anderson in [place] as well as PCP Dr. Olguin. They [...] lower extremity ulceration. He is accompanied by jejjivxe-dg-kas today. Ksymiopl-ld-ayx is aiding in daily dressing changes. He does not keep feet elevated as much as he should according to previous statements by and ozdbqofr-jl-ukh. Qxfixzxc-xy-qxt states she is seeing improvement in the [...] 09/05/23 08:23 MT Document 09/10/23 11:41 RB [id number] 09/10/23 11:44 RB Document 09/19/23 08:00 DL Desktop 09/19/23 08:09 DL 09/05/23 09/10/23 09/19/23 08:12 11:41 08:00 - Today's Visit Information Type of service Follow-up Visit Follow-up Visit Follow-up Visit (Physician/COOKIE BREAKER (Physician/COOKIE BREAKER (Physician/COOKIE BREAKER ) ) ) Arrival Mode Ambulatory Ambulatory,Cane [...] 09/05/23 08:23 MT Document 09/10/23 11:41 RB [id number] 09/10/23 11:44 RB Document 09/19/23 08:00 DL [...] Amt Medium (34-66%) Small (1-33%) -Granulation Quality [place] -Slough/Fibrin Yes -Necrosis Amt Medium (34-66%) Large (67-100%) -Necrotic Tissue Type Adherent Slough Adherent Slough -Structure Exposed N/A N/A -Texture (Jada-wound Skin Appearance) Assessed, Scarring Scarring -Moisture (Jdaa-wound Skin Appearance) Assessed Dry/Scaly -Color (Jada-wound Skin Appearance) Assessed Hemosiderin Staining -Temperature (Jada-wound Skin No Abnormality No Abnormality Appearance) (Pt Warm) (Pt Warm) -Tenderness on Palpation (Jada-wound No Skin Appearance) -Ulcer Cleansing Wound Cleanser Soap and Water -Foul Odor after Cleansing No No -Anesthetic Used 5% Lidocaine Gel Lower Limb Edema Present Yes Left Calf (cm) 37.5 35.5 Left Ankle (cm) 22 21.4 - Nurse 2 - General Ulcer CM Notes Start: 09/05/23 08:12 Freq: Status: Active Protocol: Activity Type Activity Date Activity User E-sign Co-sign Detail Recorded Client Recorded Date Recorded By Document 09/05/23 08:46 [facility] Desktop 09/05/23 08:51 BM Document 09/19/23 08:42 [facility] Desktop 09/19/23 08:48 F 09/05/23 09/19/23 08:46 08:42 Wound Center Nurse [...] 09/05/23 09:09 DL Document 09/10/23 11:41 RB [id number] 09/10/23 11:44 RB Document 09/19/23 09:02 DL [...] diabetes mellitus without complications QUALIFIERS: Diabetes mellitus intermediate designer insulin use: with shelter use Diabetes mellitus complication status: with other specified complication Qualified Code(s): E11.69 - Type 2 diabetes mellitus with other specified complication; Z79.4 - manager long term care (current) use of insulin PLAN: Plan Patient [...] No signs of infection. Pain: May take mkdr-wmx-hhnhvbe Tylenol extra strength for discomfort. Host factors: DM type II, chronic venous stasis, CHF, COPD, blindness I answered all the patient's questions. To return to the wound healing center in 2 weeks or call sooner if the patient has any questions or concerns. 09/19/23 1025 <Electronically signed by Alejandro Talbot DPM> Cosigner Signature (if applicable): CC: ~ Signed [facility] Work Phone: 1(274) 621-766504-04-2024 Progress note Author Alejandro Talbot [facility] September 05, 2023 9:11am Note Date/Time September 05, 2023 8:34 am [facility] [address] [place] [address] Progress Note - Wound Care 09/05/23 0829 MR#: [id number] Acct: [id number] Name: ARMIN TURCIOS Rep #:[id number] : 1950 73 From: Alejandro bar DPM [...] have been following with Dr. Anderson in [place] as well as PCP Dr. Olguin. They [...] lower extremity ulceration. He is accompanied by dlemaqmi-zr-afe today due to and daughter both fracturing [...] Recorded Date Recorded By Document 09/05/23 08:12 [place] Desktop 09/05/23 08:23 MT 09/05/23 08:12 - Today's Visit Information Type of service Follow-up Visit (Physician/COOKIE BREAKER ) Arrival Mode Ambulatory Accompanied by daughter [...] Recorded Date Recorded By Document 09/05/23 08:12 TX Desktop 09/05/23 08:23 TX 09/05/23 08:12 Wound Center Nurse 1 #9 [...] status: with other specified complication Diabetes mellitus intermediate designer insulin use: with shelter use Qualified Code(s): E11.69 - Type 2 diabetes mellitus with other specified complication; Z79.4 - manager long term care (current) use of insulin PLAN: Plan Patient [...] No signs of infection. Pain: May take veyy-dau-udvmeja Tylenol extra strength for discomfort. Host factors: DM type II, chronic venous stasis, CHF, COPD, blindness I answered all the patient's questions. To return to the wound healing center in 2 weeks or call sooner if the patient has any questions or concerns. 09/05/23 0911 <Electronically signed by Alejandro Talbot DPM> Cosigner Signature (if applicable): CC: ~ Signed [facility] Work Phone: 1(541) 506-960203-21-2024 Progress note Author Alejandro Talbot [facility] August 22, 2023 12:36pm Note Date/Time August 22, 2023 8:2 4am [facility] [address] [place] [address] Progress Note - Wound Care 08/22/23 0823 MR#: [id number] Acct: [id number] Name: ARMIN TURCIOS Rep #:[id number] : 1950 73 From: Alejandro bar DPM [...] have been following with Dr. Anderson in [place] as well as PCP Dr. Olguin. They [...] 08/22/23 08:18 GM 08/08/23 08/22/23 08:05 08:07 WC - Today's Visit Information Type of service Follow-up Visit Follow-up Visit (Physician/COOKIE BREAKER (Physician/COOKIE BREAKER ) ) Arrival Mode Ambulatory,Cane Ambulatory Transfer [...] Numeric Is Patient Pain Free? Yes Yes BRYANNA - Nurse 1 - General Ulcer Measurement Start: 08/08/23 08:05 Freq: Status: Active Protocol: Activity Type Activity Date Activity User E-sign Co-sign Detail Recorded Client Recorded Date Recorded By Document 08/08/23 08:05 DL Desktop 08/08/23 08:15 DL Document 08/22/23 08:07 Desktop 08/22/23 08:18 08/08/23 08/22/23 08:05 08:07 Wound Center Nurse [...] Recorded Date Recorded By Document 08/08/23 08:38 [facility] Desktop 08/08/23 08:46 [facility] 08/08/23 08:38 Wound Center Nurse [...] Disc -Expiration Date 04/03/28 -Product Lot Number [id number] -Percent Used 100 -Lot number of Saline Used [id number] -Bleeding Controlled with Pressure -Treatment Response Procedure Tolerated Well -Debridement - Subq, 1st 20sq cm No -Apply Skin Sub - 1st 25 sq cm - Legs 1 -Epifix 18mm Disc 3 Pain Scale: 0-10 Numeric Is Patient Pain Free? Yes Pain Scale: Adult NonVerbal Is Patient Pain Free? Yes WC - Nurse 3 - General Ulcer D/C NN Start: 08/08/23 08:05 Freq: Status: Active Protocol: Activity Type Activity Date Activity User E-sign Co-sign Detail Recorded Client Recorded Date Recorded By Document 08/08/23 08:59 DL Desktop 08/08/23 08:59 DL Edit Result 08/08/23 08:59 DL (1) [id number] 08/12/23 15:12 BMF Document 08/15/23 08:12 MT [...] status: with other specified complication Diabetes mellitus shelter insulin use: with intermediate designer use Qualified Code(s): E11.69 - Type 2 diabetes mellitus with other specified complication; Z79.4 - manager long term care (current) use of insulin (7) COPD (chronic [...] No signs of infection. Pain: May take zvnt-wki-hiwechd Tylenol extra strength for discomfort. Host factors: DM type II, chronic venous stasis, CHF, COPD, blindness I answered all the patient's questions. To return to the wound healing center in 2 weeks or call sooner if the patient has any questions or concerns. 08/22/23 1236 <Electronically signed by Alejandro Talbot DPM> Cosigner Signature (if applicable): CC: ~ Signed [facility] Work Phone: 1(249) 981-927503-07-2024 Progress note Author Alejandro Talbot [facility] August 08, 2023 8:40pm Note Date/Time August 08, 2023 8:33 am [facility] [address] [place] [address] Progress Note - Wound Care 08/08/23 0831 MR#: [id number] Acct: [id number] Name: ARMIN TURCIOS Rep #:[id number] : 1950 73 From: Alejandro bar DPM [...] have been following with Dr. Anderson in [place] as well as PCP Dr. Olguin. They [...] DL Desktop 08/08/23 08:15 DL 08/08/23 08:05 WC - Today's Visit Information Type of service Follow-up Visit (Physician/COOKIE BREAKER ) Arrival Mode Ambulatory,Cane Transfer Assist (Other) [...] Numeric Is Patient Pain Free? Yes BRYANNA Voss Nurse 1 - General Ulcer Measurement Start: [...] diabetes mellitus without complications QUALIFIERS: Diabetes mellitus intermediate designer insulin use: with intermediate designer use Diabetes mellitus complication status: with other specified complication Qualified Code(s): E11.69 - Type 2 diabetes mellitus with other specified complication; Z79.4 - nursing home (current) use of insulin (7) COPD (chronic [...] No signs of infection. Pain: May take nfpp-bht-xulbzcy Tylenol extra strength for discomfort. Host factors: DM type II, chronic venous stasis, CHF, COPD, blindness I answered all the patient's questions. To return to the wound healing center in 2 weeks or call sooner if the patient has any questions or concerns. 08/08/232039 <Electronically signed by Alejandro Talbot DPM> Cosigner Signature (if applicable): CC: ~ Signed [facility] Work Phone: 1(522) 292-702102-29-2024 Progress note Author Alejnadro Talbot [facility] August 01, 2023 11:43am Note Date/Time August 01, 2023 8:31am [facility] [address] [place] [address] Progress Note - Wound Care 08/01/23 0831 MR#: [id number] Acct: [id number] Name: ARMIN TURCIOS Rep #:[id number] : 1950 73 From: Alejandro bar DPM PCP: Dr. Jessi Olguin MD Status:[facility] Location: History of Present Illness Date of [...] have been following with Dr. Anderson in [place] as well as PCP Dr. Olguin. They [...] service Nurse-only Follow-up Visit Follow-up Visit Visit (Physician/COOKIE BREAKER (Physician/COOKIE BREAKER ) ) Arrival Mode Ambulatory,Cane Ambulatory,Cane Ambulatory,Cane [...] Pain Free? Yes Yes Yes 08/01/23 08:00 WC - Today's Visit Information Type of service Follow-up Visit (Physician/COOKIE BREAKER ) Arrival Mode Ambulatory Transfer Assistance None [...] Amt Large (67-100%) Large (67-100%) -Granulation Quality [place] Pale -Necrosis Amt Small (1-33%) None Present [...] 07/11/23 08:53 PL Document 07/11/23 11:55 PL [id number] 07/11/23 11:56 PL Document 07/18/23 08:37 PL Tablet 07/18/23 08:39 PL Document 07/25/23 12:04 PL [id number] 07/25/23 12:06 PL 07/11/23 07/11/23 07/18/23 08:51 [...] Disc -Expiration Date 03/03/28 -Product Lot Number [id number] -Percent Used 100 -Bleeding Controlled with [...] Recorded Date Recorded By Document 07/04/23 08:10 BMF Desktop 07/04/23 08:11 BMF Document 07/18/23 08:32 KW [...] status: with other specified complication Diabetes mellitus intermediate designer insulin use: with shelter use Qualified Code(s): E11.69 - Type 2 diabetes mellitus with other specified complication; Z79.4 - manager long term care (current) use of insulin (7) COPD (chronic [...] No signs of infection. Pain: May take zutd-kgx-wqxvfze Tylenol extra strength for discomfort. Host factors: DM type II, chronic venous stasis, CHF, COPD, blindness I answered all the patient's questions. To return to the wound healing center in 1 week or call sooner if the patient has any questions or concerns. 08/01/23 1143 <Electronically signed by Alejandro Talbot DPM> Cosigner Signature (if applicable): CC: ~ Signed [facility] Work Phone: 1(486) 381-517102-22-2024 Progress note Author Alejandro Talbot [facility] July 25, 2023 8:48am Note Date/Time July 25, 2023 8:23am [facility] [address] [place] [address] Progress Note - Wound Care 07/25/23 0820 MR#: [id number] Acct: [id number] Name: ARMIN TURCIOS Rep #:[id number] : 1950 73 From: Alejandro bar DPM [...] have been following with Dr. Anderson in [place] as well as PCP Dr. Olguin. They [...] service Nurse-only Follow-up Visit Follow-up Visit Visit (Physician/COOKIE BREAKER (Physician/COOKIE BREAKER ) ) Arrival Mode Ambulatory,Cane Ambulatory,Cane Ambulatory,Cane [...] Recorded Date Recorded By Document 07/04/23 08:06 [facility] 07/04/23 08:10 BMF Document 07/18/23 08:00 KW [...] Amt Large (67-100%) Large (67-100%) -Granulation Quality [place] Pale -Necrosis Amt Small (1-33%) None Present (0 %) -Necrotic Tissue Type Adherent Slough -Structure Exposed N/A -Texture (Jada-wound Skin Appearance) Assessed Scarring -Moisture (Jada-wound Skin Appearance) Assessed No Abnormality -Color (Jada-wound Skin Appearance) Assessed Hemosiderin Staining -Temperature (Jaad-wound Skin No Abnormality No Abnormality Appearance) (Pt [...] 07/11/23 08:53 PL Document 07/11/23 11:55 PL [id number] 07/11/23 11:56 PL Document 07/18/23 08:37 PL [...] Recorded Date Recorded By Document 07/04/23 08:10 BMF Desktop 07/04/23 08:11 BMF Document 07/18/23 08:32 KW [...] status: with other specified complication Diabetes mellitus intermediate designer insulin use: with intermediate designer use Qualified Code(s): E11.69 - Type 2 diabetes mellitus with other specified complication; Z79.4 - manager long term care (current) use of insulin (7) COPD (chronic [...] No signs of infection. Pain: May take vpne-vlm-privhen Tylenol extra strength for discomfort. Host factors: DM type II, chronic venous stasis, CHF, COPD, blindness I answered all the patient's questions. To return to the wound healing center in 1 week or call sooner if the patient has any questions or concerns. 07/25/23 0848 <Electronically signed by Alejandro Talbot DPM> Cosigner Signature (if applicable): CC: ~ Signed [facility] Work Phone: 1(353) 896-668002-15-2024 Progress note Author Alejandro [facility] July 18, 2023 8:41am Note Date/Time July 18, 2023 8:21am [facility] [address] [place] [address] Progress Note - Wound Care 07/18/2317 MR#: [id number] Acct: [id number] Name: ARMIN TURCIOS Rep #:[id number] : 1950 73 From: Alejandro bar DPM [...] have been following with Dr. Anderson in [place] as well as PCP Dr. Olguin. They [...] Start: 07/04/23 08:06 Freq: Status: Active Protocol: [email or web address].[email or web address] Activity Type Activity Date Activity User E-sign Co-sign Detail Recorded Client Recorded Date Recorded By Document 07/04/23 08:06 [employer] Desktop 07/04/23 08:10 [employer] Document 07/18/23 08:00 [employer] Desktop 07/18/23 08:06 KW 07/04/23 07/18/23 08:06 08:00 - Today's Visit Information Type of service Nurse-only Follow-up Visit Visit (Physician/COOKIE BREAKER ) Arrival Mode Ambulatory,Cane Ambulatory,Cane Transfer Assistance [...] Numeric Is Patient Pain Free? Yes Yes BRYANNA - Nurse 1 - General [...] Yes -Granulation Amt Large (67-100%) -Granulation Quality [place] -Necrosis Amt Small (1-33%) -Necrotic Tissue Type Adherent Slough -Texture (Jada-wound Skin Appearance) Assessed -Moisture (Jada-wound Skin Appearance) Assessed -Color (Jada-wound Skin Appearance) Assessed -Temperature (Jada-wound Skin No Abnormality Appearance) (Pt Warm) -Ulcer Cleansing Rinsed/ Irrigated with Saline -Anesthetic Used 5% Lidocaine Gel -Wound Comment(s) epifix intact Lower Limb Edema Present Yes Left Calf (cm) 38.2 37.8 Left Ankle (cm) 22.3 21.7 BRYANNA - Nurse 2 - General Ulcer CM Notes Start: 07/04/23 08:06 Freq: Status: Active Protocol: Activity Type Activity Date Activity User E-sign Co-sign Detail Recorded Client Recorded Date Recorded By Document 07/11/23 08:51 PL Tablet 07/11/23 08:53 PL Document 07/11/23 11:55 PL [id number] 07/11/23 11:56 PL 07/11/23 07/11/23 08:51 11:55 [...] Recorded Date Recorded By Document 07/04/23 08:10 [facility] Desktop 07/04/23 08:11 [facility] 07/04/23 08:10 Wound Care Center [...] diabetes mellitus without complications QUALIFIERS: Diabetes mellitus shelter insulin use: with shelter use Diabetes mellitus complication status: with other specified complication Qualified Code(s): E11.69 - Type 2 diabetes mellitus with other specified complication; Z79.4 - manager long term care (current) use of insulin (7) COPD (chronic [...] No signs of infection. Pain: May take bbov-qhh-cyppjzz Tylenol extra strength for discomfort. Host factors: DM type II, chronic venous stasis, CHF, COPD, blindness I answered all the patient's questions. To return to the wound healing center in 1 week or call sooner if the patient has any questions or concerns. 07/18/23840 <Electronically signed by Alejandro Talbot DPM> Cosigner Signature (if applicable): CC: ~ Signed [facility] Work Phone: 1(161) 118-612502-08-2024 Progress note Author Alejandro Talbot [facility] July 11, 2023 8:59am Note Date/Time July 11, 2023 8 :39am [facility] [address] [place] [address] Progress Note - Wound Care 07/11/2335 MR#: [id number] Acct: [id number] Name: ARMIN TURCIOS Rep #:[id number] : 1950 73 From: Alejandro bar DPM [...] have been following with Dr. Anderson in [place] as well as PCP Dr. Olguin. They [...] Recorded Date Recorded By Document 07/04/23 08:06 [facility] Desktop 07/04/23 08:10 [facility] 07/04/23 08:06 - Today's Visit Information Type of [...] Recorded Date Recorded By Document 07/04/23 08:06 [facility] [employer] 07/04/23 08:10 [facility] 07/04/23 08:06 Wound Center Nurse 1 #9 LT ANKLE -Wound Comment(s) epifix intact Lower Limb Edema Present Yes Left Calf (cm) 38.2 Left Ankle (cm) 22.3 - Nurse 3 - General Ulcer D/C NN Start: 07/04/23 08:06 Freq: Status: Active Protocol: Activity Type Activity Date Activity User E-sign Co-sign Detail Recorded Client Recorded Date Recorded By Document 07/04/23 08:10 [facility] [employer] 07/04/23 08:11 [facility] 07/04/23 08:10 Wound Care Center [...] diabetes mellitus without complications QUALIFIERS: Diabetes mellitus shelter insulin use: with shelter use Diabetes mellitus complication status: with other specified complication Qualified Code(s): E11.69 - Type 2 diabetes mellitus with other specified complication; Z79.4 - nursing home (current) use of insulin (7) COPD (chronic [...] No signs of infection. Pain: May take ayjg-vgx-assekmi Tylenol extra strength for discomfort. Host factors: DM type II, chronic venous stasis, CHF, COPD, blindness I answered all the patient's questions. To return to the wound healing center in 1 week or call sooner if the patient has any questions or concerns. 07/11/23 0859 <Electronically signed by Alejandro Talbot DPM> Cosigner Signature (if applicable): CC: ~ Signed [facility] Work Phone: 1(103) 406-638001-25-2024 Progress note Author Alejandro Talbot [facility] June 27, 2023 8:33am Note Date/Time June 27, 2023 8 :16am [facility] [address] [place] [address] Progress Note - Wound Care 06/27/2316 MR#: [id number] Acct: [id number] Name: ARMIN TURCIOS Rep #:[id number] : 1950 73 From: Alejandro bar DPM [...] have been following with Dr. Anderson in [place] as well as PCP Dr. Olguin. They [...] service Follow-up Visit Follow-up Visit Follow-up Visit (Physician/COOKIE BREAKER (Physician/COOKIE BREAKER (Physician/COOKIE BREAKER ) ) ) Arrival Mode Ambulatory,Cane Ambulatory [...] Visit Information Type of service Follow-up Visit (Physician/COOKIE BREAKER ) Arrival Mode Ambulatory,Cane Accompanied by Patient [...] (34-66%) Medium (34-66%) -Granulation Quality [place] -Necrosis Amt Medium (34-66%) Small (1-33%) Small [...] Thickened -Granulation Amt Small (1-33%) -Granulation Quality [place] -Necrosis Amt Medium (34-66%) -Necrotic Tissue Type [...] => 02/02/28 - Product Lot Number => [id number] - Percent Used => 100 06/06/23 06/13/23 [...] Date 02/02/28 02/02/28 02/02/28 -Product Lot Number [id number] -Percent Used 100 100 [...] 06/13/23 08:36 KW Desktop 06/13/23 08:37 KW Document 06/20/23 08:34 KW Desktop 06/20/23 08:35 KW 06/06/23 06/13/23 06/20/23 08:38 [...] status: with other specified complication Diabetes mellitus shelter insulin use: with shelter use Qualified Code(s): E11.69 - Type 2 diabetes mellitus with other specified complication; Z79.4 - manager long term care (current) use of insulin (8) Hyperlipidemia: CODE(S): [...] No signs of infection. Pain: May take cmmr-zdn-afhniqr Tylenol extra strength for discomfort. Host factors: DM type II, chronic venous stasis, CHF, COPD, blindness He will return in 1 week for nurse visit for Unna boot change. I answered all the patient's questions. To return to the wound healing center in 2 weeks or call sooner if the patient has any questions or concerns. 06/27/23 0833 <Electronically signed by Alejandro Talbot DPM> Cosigner Signature (if applicable): CC: ~ Signed [facility] Work Phone: 1(586) 688-117801-18-2024 Progress note Author Alejandro Talbot [facility] June 20, 2023 8:39am Note Date/Time June 20, 2023 8 :39am [facility] [address] [place] [address] Progress Note - Wound Care 06/20/23 0832 MR#: [id number] Acct: [id number] Name: ARMIN TURCIOS Rep #:[id number] : 1950 73 From: Alejandro bar DPM PCP: Dr. Jessi Olguin MD Status:[facility] Location: History of Present Illness Date of [...] have been following with Dr. Anderson in [place] as well as PCP Dr. Olguin. They [...] today as he is stillreeling from the [employer] playoff loss. He denies constitutional symptoms today. [...] Desktop 06/06/23 08:08 KW Document 06/13/23 08:05 GreenLancerktop 06/13/23 08:06 KW Document 06/20/23 08:06 KW Desktop 06/20/23 08:15 KW 06/06/23 06/13/23 06/20/23 08:05 08:05 08:06 - Today's Visit Information Type of service Follow-up Visit Follow-up Visit Follow-up Visit (Physician/COOKIE BREAKER (Physician/COOKIE BREAKER (Physician/COOKIE BREAKER ) ) ) Arrival Mode Ambulatory,Cane Ambulatory [...] Recorded Date Recorded By Document 06/06/23 08:05 Signalop 06/06/23 08:08 KW Document 06/13/23 08:05 GreenLancerktop 06/13/23 08:06 KW Document 06/20/23 08:06 Shopintoit Desktop 06/20/23 08:15 KW 06/06/23 06/13/23 06/20/23 [...] (34-66%) Medium (34-66%) -Granulation Quality [place] -Necrosis Amt Medium (34-66%) Small (1-33%) Small [...] -Expiration Date 02/02/28 02/02/28 -Product Lot Number [id number] -Percent Used 100 100 -Bleeding [...] diabetes mellitus without complications QUALIFIERS: Diabetes mellitus shelter insulin use: with shelter use Diabetes mellitus complication status: with other specified complication Qualified Code(s): E11.69 - Type 2 diabetes mellitus with other specified complication; Z79.4 - nursing home (current) use of insulin (8) Hyperlipidemia: CODE(S): [...] No signs of infection. Pain: May take llrd-yff-qmcapik Tylenol extra strength for discomfort. Host factors: DM type II, chronic venous stasis, CHF, COPD, blindness I answered all the patient's questions. To return to the wound healing center in 1 week or call sooner if the patient has any questions or concerns. 06/20/23 0839 <Electronically signed by Alejandro Talbot DPM> Cosigner Signature (if applicable): CC: ~ Signed [facility] Work Phone: [phone]) 172-381501-11-2024 Progress note Author Alejandro Talbot [facility] June 13, 2023 8:51am Note Date/Time June 13, 2023 8 :23am [facility] [address] [place] [address] Progress Note - Wound Care 06/13/2323 MR#: [id number] Acct: [id number] Name: ARMIN TURCIOS Rep #:[id number] : 1950 73 From: Alejandro bar DPM [...] have been following with Dr. Anderson in [place] as well as PCP Dr. Olguin. They [...] Recorded Date Recorded By Document 06/06/23 08:05 GreenLancerktop 06/06/23 08:08 KW Document 06/13/23 08:05 [employer]intoit Desktop 06/13/23 08:06 KW 06/06/23 06/13/23 08:05 08:05 WC - Today's Visit Information Type of service Follow-up Visit Follow-up Visit (Physician/COOKIE BREAKER (Physician/COOKIE BREAKER ) ) Arrival Mode Ambulatory,Cane Ambulatory Accompanied [...] Numeric Is Patient Pain Free? Yes Yes BRYANNA - Nurse 1 - General [...] 38.2 38 Left Ankle (cm) 22.1 21.7 BRYANNA - Nurse 2 - General Ulcer CM Notes Start: 06/06/23 08:05 Freq: Status: Active Protocol: Activity Type Activity Date Activity User E-sign Co-sign Detail Recorded Client Recorded Date Recorded By Document 06/06/23 09:21 PL Tablet 06/06/23 09:25 PL 01/04/24 09:21 Wound Center Nurse 2 #9 LT [...] Disc -Expiration Date 02/02/28 -Product Lot Number [id number] -Percent Used 100 -Bleeding Controlled with [...] status: with other specified complication Diabetes mellitus intermediate designer insulin use: with shelter use Qualified Code(s): E11.69 - Type 2 diabetes mellitus with other specified complication; Z79.4 - manager long term care (current) use of insulin (8) Hyperlipidemia: CODE(S): [...] No signs of infection. Pain: May take uyzw-uzk-ijqyzbs Tylenol extra strength for discomfort. Host factors: DM type II, chronic venous stasis, CHF, COPD, blindness I answered all the patient's questions. To return to the wound healing center in 1 week or call sooner if the patient has any questions or concerns. 06/13/2351 <Electronically signed by Alejandro Talbot DPM> Cosigner Signature (if applicable): CC: ~ Signed [facility] Work Phone: 1(139) 159-254001-04-2024 Progress note Author Alejandro Talbot [facility] June 06, 2023 8:47am Note Date/Time June 06, 2023 8: 28am [facility] [address] [place] [address] Progress Note - Wound Care 06/06/23820 MR#: [id number] Acct: [id number] Name: ARMIN TURCIOS Rep #:[id number] : 1950 73 From: Alejandro bar DPM [...] have been following with Dr. Anderson in [place] as well as PCP Dr. Olguin. They [...] Start: 06/06/23 08:05 Freq: Status: Active Protocol: .LOWEXT Activity Type Activity Date Activity User E-sign Co-sign Detail Recorded Client Recorded Date Recorded By Document 06/06/23 08:05 Desktop 06/06/23 08:08 KW 06/06/23 08:05 - Today's Visit Information Type of service Follow-up Visit (Physician/COOKIE BREAKER ) Arrival Mode Ambulatory,Cane Accompanied by Patient [...] 06/06/23 08:05 KW Desktop 06/06/23 08:08 KW 06/06/23 08:05 Wound Center [...] status: with other specified complication Diabetes mellitus intermediate designer insulin use: with intermediate designer use Qualified Code(s): E11.69 - Type 2 diabetes mellitus with other specified complication; Z79.4 - nursing home (current) use of insulin (8) Hyperlipidemia: CODE(S): [...] No signs of infection. Pain: May take snen-jqd-fiwayye Tylenol extra strength for discomfort. Host factors: DM type II, chronic venous stasis, CHF, COPD, blindness I answered all the patient's questions. To return to the wound healing center in 1 week or call sooner if the patient has any questions or concerns. 06/06/23 0847 <Electronically signed by Alejandro Talbot DPM> Cosigner Signature (if applicable): CC: ~ Signed [facility] Work Phone: 1(887) 603-181312-28-2023 Progress note Author Alejandro Talbot [facility] May 30, 2023 9:24am Note Date/Time May 30, 2023 8:24am [facility] [address] [place] [address] Progress Note - Wound Care 05/30/23822 MR#: [id number] Acct: [id number] Name: ARMIN TURCIOS Rep #:[id number] : 1950 73 From: Alejandro bar DPM [...] have been following with Dr. Anderson in [place] as well as PCP Dr. Olguin. They [...] Start: 05/09/23 08:09 Freq: Status: Active Protocol: BRYANNA.SHANNAN Activity Type Activity Date Activity User E-sign Co-sign Detail Recorded Client Recorded Date Recorded By Document 05/09/23 08:09 DL Desktop 05/09/23 08:19 DL Document 05/16/23 08:10 KW Desktop 05/16/23 08:29 KW Document 05/30/23 08:04 JF Desktop 05/30/23 08:06 05/09/23 05/16/23 05/30/23 08:09 08:10 08:04 - Today's Visit Information Type of service Follow-up Visit Follow-up Visit Follow-up Visit (Physician/COOKIE BREAKER (Physician/COOKIE BREAKER (Physician/COOKIE BREAKER ) ) ) Arrival Mode Ambulatory,Cane Ambulatory,Cane [...] Document 05/30/23 08:04 JF Desktop 05/30/23 08:06 05/09/23 05/16/23 05/30/23 08:09 08:10 08:04 Wound [...] (1-33%) Medium (34-66%) -Granulation Quality [place] -Necrosis Amt Small (1-33%) Large (67-100%) Small [...] Recorded Date Recorded By Document 05/09/23 10:19 [id number] 05/09/23 10:21 PL Document 05/16/23 16:29 [id number] 05/16/23 16:31 PL 05/09/23 05/16/23 10:19 16:29 [...] -Expiration Date 01/02/28 01/02/28 -Product Lot Number [id number] -Percent Used 100 100 -Bleeding [...] status: with other specified complication Diabetes mellitus shelter insulin use: with intermediate designer use Qualified Code(s): E11.69 - Type 2 diabetes mellitus with other specified complication; Z79.4 - nursing home (current) use of insulin (8) Hyperlipidemia: CODE(S): [...] No signs of infection. Pain: May take fppm-lyj-noihrnx Tylenol extra strength for discomfort. Host factors: DM type II, chronic venous stasis, CHF, COPD, blindness I answered all the patient's questions. To return to the wound healing center in 1 week or call sooner if the patient has any questions or concerns. 05/30/23923 <Electronically signed by Alejandro Talbot DPM> Cosigner Signature (if applicable): CC: ~ Signed [facility] Work Phone: 1(489) 420-465512-14-2023 Progress note Author Alejandro Talbot [facility] May 16, 2023 9:20am Note Date/Time May 16, 2023 8:27am [facility] [address] [place] [address] Progress Note - Wound Care 05/16/23826 MR#: [id number] Acct: [id number] Name: ARMIN TURCIOS Rep #:[id number] : 1950 73 From: Alejandro bar DPM [...] have been following with Dr. Anderson in [place] as well as PCP Dr. Olguin. They [...] Recorded Date Recorded By Document 05/09/23 08:09 Desktop 05/09/23 08:19 DL 05/09/23 08:09 - Today's Visit Information Type of service Follow-up Visit (Physician/COOKIE BREAKER ) Arrival Mode Ambulatory,Cane Transfer Assistance None [...] 05/09/23 08:09 DL Desktop 05/09/23 08:19 DL 05/09/23 08:09 Wound Center [...] Left Ankle (cm) 22.5 WC - Nurse 2 - General Ulcer CM Notes Start: 05/09/23 08:09 Freq: Status: Active Protocol: Activity Type Activity Date Activity User E-sign Co-sign Detail Recorded Client Recorded Date Recorded By Document 05/09/23 10:19 PL [id number] 05/09/23 10:21 PL 05/09/23 10:19 Wound Center [...] Disc -Expiration Date 01/02/28 -Product Lot Number [id number] -Percent Used 100 -Bleeding Controlled with [...] Recorded Date Recorded By Document 05/09/23 08:54 Desktop 05/09/23 08:55 05/09/23 08:54 Wound Care Center Nurse 3 [...] status: with other specified complication Diabetes mellitus shelter insulin use: with shelter use Qualified Code(s): E11.69 - Type 2 diabetes mellitus with other specified complication; Z79.4 - manager long term care (current) use of insulin (8) Hyperlipidemia: CODE(S): [...] No signs of infection. Pain: May take kvze-mgk-yiddpbp Tylenol extra strength for discomfort. Host factors: DM type II, chronic venous stasis, CHF, COPD, blindness I answered all the patient's questions. To return to the wound healing center in 2 weeks or call sooner if the patient has any questions or concerns. 05/16/23919 <Electronically signed by Alejandro Talbot DPM> Cosigner Signature (if applicable): CC: ~ Signed [facility] Work Phone: 1(973) 123-568812-07-2023 Progress note Author Alejandro Talbot [facility] May 09, 2023 9:33am Note Date/Time May 09, 2023 9 :34am [facility] [place] [address] Progress Note - Wound Care 05/09/2327 MR#: [id number] Acct: [id number] Name: ARMIN TURCIOS Rep #:[id number] : 1950 73 From: Alejandro bar DPM PCP: Dr. Jessi Olguin MD Status:[facility] Location: History of Present Illness Date of [...] have been following with Dr. Anderson in [place] as well as PCP Dr. Olguin. They [...] Start: 05/09/23 08:09 Freq: Status: Active Protocol: BRYANNA.LOWEXFallon Activity Type Activity Date Activity User E-sign Co-sign Detail Recorded Client Recorded Date Recorded By Document 05/09/23 08:09 Desktop 05/09/23 08:19 DL 05/09/23 08:09 - Today's Visit Information Type of service Follow-up Visit (Physician/COOKIE BREAKER ) Arrival Mode Ambulatory,Cane Transfer Assistance None [...] 05/09/23 08:09 DL Desktop 05/09/23 08:19 DL 05/09/23 08:09 Wound Center [...] Document 05/09/23 08:54 GM Desktop 05/09/23 08:55 05/09/23 08:54 Wound Care Center Nurse 3 [...] diabetes mellitus without complications QUALIFIERS: Diabetes mellitus shelter insulin use: with intermediate designer use Diabetes mellitus complication status: with other specified complication Qualified Code(s): E11.69 - Type 2 diabetes mellitus with other specified complication; Z79.4 - manager long term care (current) use of insulin (8) Hyperlipidemia: CODE(S): [...] No signs of infection. Pain: May take bggr-dgj-ewroltz Tylenol extra strength for discomfort. Host factors: DM type II, chronic venous stasis, CHF, COPD, blindness I answered all the patient's questions. To return to the wound healing center in 1 week or call sooner if the patient has any questions or concerns. 05/09/23932 <Electronically signed by Alejandro Talbot DPM> Cosigner Signature (if applicable): CC: ~ Signed [facility] Work Phone: 1(863) 770-783611-30-2023 Progress note Author Alejandro Talbot [facility] May 02, 2023 9:18am Note Date/Time May 02, 2023 9:14am [facility] [address] [place] [address] Progress Note - Wound Care 05/02/23 0911 MR#: [id number] Acct: [id number] Name: ARMIN TURCIOS Rep #:[id number] : 1950 73 From: Alejandro bar DPM [...] have been following with Dr. Anderson in [place] as well as PCP Dr. Olguin. They [...] KW 04/11/23 04/18/23 05/02/23 08:16 08:01 08:05 - Today's Visit Information Type of service Follow-up Visit Follow-up Visit Follow-up Visit (Physician/COOKIE BREAKER (Physician/COOKIE BREAKER (Physician/COOKIE BREAKER ) ) ) Arrival Mode Ambulatory Ambulatory,Cane [...] (1-33%) Small (1-33%) Small (1-33%) -Granulation Quality [place] -Slough/Fibrin Yes -Necrosis Amt Large (67-100%) Medium [...] Present (0 Small (1-33%) %) -Granulation Quality [place] -Slough/Fibrin Yes -Necrosis Amt Medium (34-66%) Medium [...] Date Recorded By Document 04/11/23 16:38 PL [id number] 04/11/23 16:41 PL Document 04/18/23 16:06 PL [id number] 04/18/23 16:09 PL 04/11/23 04/18/23 16:38 16:06 Wound Center Nurse 2 #9 LT ANKLE -Time 08: 08:34 -Correct Patient Yes Yes -Correct Side, [...] -Expiration Date 12/02/27 12/02/27 -Product Lot Number [id number] -Percent Used 100 100 -Bleeding [...] diabetes mellitus without complications QUALIFIERS: Diabetes mellitus intermediate designer insulin use: with intermediate designer use Diabetes mellitus complication status: with other specified complication Qualified Code(s): E11.69 - Type 2 diabetes mellitus with other specified complication; Z79.4 - manager long term care (current) use of insulin (6) COPD (chronic [...] No signs of infection. Pain: May take esea-pva-eagcmpd Tylenol extra strength for discomfort. Host factors: DM type II, chronic venous stasis, CHF, COPD, blindness I answered all the patient's questions. To return to the wound healing center in 1 week or call sooner if the patient has any questions or concerns. 11/30/23 0918 <Electronically signed by Alejandro Talbot DPM> Cosigner Signature (if applicable): CC: ~ Signed [facility] Work Phone: [phone]) 885-638011-16-2023 Progress note Author Alejandro Talbot [facility] April 18, 2023 9:36am Note Date/Time April 18, 2023 9:36am [facility] [address] [facility] [place] [address] Progress Note - Wound Care 04/18/23929 MR#: [id number] Acct: [id number] Name: ARMIN TURCIOS Rep #:[id number] : 1950 73 From: Alejandro bar DPM [...] have been following with Dr. Anderson in [place] as well as PCP Dr. Olguin. They [...] Recorded Client Recorded Date Recorded By Document 11/09/23 08:16 DL Desktop 04/11/23 08:26 DL Document 04/18/23 08:01 NRL Desktop 04/18/23 08:14 NRL 04/11/23 04/18/23 08:16 08:01 - Today's Visit Information Type of service Follow-up Visit Follow-up Visit (Physician/COOKIE BREAKER (Physician/COOKIE BREAKER ) ) Arrival Mode Ambulatory Ambulatory,Cane Transfer [...] Amt Small (1-33%) Small (1-33%) -Granulation Quality [place] -Slough/Fibrin Yes -Necrosis Amt Large (67-100%) Medium [...] Present (0 Small (1-33%) %) -Granulation Quality [place] -Slough/Fibrin Yes -Necrosis Amt Medium (34-66%) Medium [...] Date Recorded By Document 04/11/23 16:38 PL [id number] 04/11/23 16:41 PL 04/11/23 16:38 Wound Center [...] Disc -Expiration Date 12/02/27 -Product Lot Number [id number] -Percent Used 100 -Bleeding Controlled with [...] diabetes mellitus without complications QUALIFIERS: Diabetes mellitus intermediate designer insulin use: with shelter use Diabetes mellitus complication status: with other specified complication Qualified Code(s): E11.69 - Type 2 diabetes mellitus with other specified complication; Z79.4 - nursing home (current) use of insulin (6) COPD (chronic [...] No signs of infection. Pain: May take thmb-vax-oiooozb Tylenol extra strength for discomfort. Host factors: DM type II, chronic venous stasis, CHF, COPD, blindness I answered all the patient's questions. To return to the wound healing center in 2 weeks or call sooner if the patient has any questions or concerns. 04/18/23 0936 <Electronically signed by Alejandro Talbot DPM> Cosigner Signature (if applicable): CC: ~ Signed [facility] Work Phone: [phone]) 519-997411-09-2023 Progress note Author Alejandro Talbot [facility] April 11, 2023 1:14pm Note Date/Time April 11, 2023 9 :25am [facility] [address] [place] [address] Progress Note - Wound Care 04/11/23 0921 MR#: [id number] Acct: [id number] Name: ARMIN TURCIOS Rep #:[id number] : 1950 73 From: Alejandro bar DPM PCP: Dr. Jessi Olguin MD Status:[facility] Location: History of Present Illness Date of [...] have been following with Dr. Anderson in [place] as well as PCP Dr. Olguin. They [...] Recorded Date Recorded By Document 04/11/23 08:16 Desktop 04/11/23 08:26 DL 04/11/23 08:16 - Today's Visit Information Type of service Follow-up Visit (Physician/COOKIE BREAKER ) Arrival Mode Ambulatory Transfer Assistance None [...] DL Desktop 04/11/23 08:26 DL 04/11/23 08:16 Wound Center Nurse 1 #9 LT ANKLE -Current Size (cm) - Length 1.4 -Current Size (cm) - Width 0.8 -Current Size (cm) - Depth 0.3 -Total Square Cm 1.12 -Exudate Amt Small -Exudate Type Serosanguineous -Wound Margin Distinct, Outline Attached -Granulation Amt Small (1-33%) -Granulation Quality [place] -Necrosis Amt Large (67-100%) -Necrotic Tissue Type [...] Calf (cm) 38 Left Ankle (cm) 21.6 - Nurse 3 - General Ulcer D/C NN Start: 04/11/23 08:16 Freq: Status: Active Protocol: Activity Type Activity Date Activity User E-sign Co-sign Detail Recorded Client Recorded Date Recorded By Document 04/11/23 09:01 Desktop 04/11/23 09:03 DL 04/11/23 09:01 Wound [...] status: with other specified complication Diabetes mellitus shelter insulin use: with shelter use Qualified Code(s): E11.69 - Type 2 diabetes mellitus with other specified complication; Z79.4 - manager long term care (current) use of insulin (6) COPD (chronic [...] No signs of infection. Pain: May take lcgq-mtw-yoqgrpg Tylenol extra strength for discomfort. Host factors: DM type II, chronic venous stasis, CHF, COPD, blindness I answered all the patient's questions. To return to the wound healing center in 1 week or call sooner if the patient has any questions or concerns. 04/11/23 1314 <Electronically signed by Alejandro Talbot DPM> Cosigner Signature (if applicable): CC: ~ Signed [facility] Work Phone: [phone] 810-133810-26-2023 Progress note Author Alejandro Talbot [facility] March 28, 2023 12:23pm Note Date/Time March 28, 2023 8 :45am [facility] [address] [place] [address] Progress Note - Wound Care 03/28/23 0844 MR#: [id number] Acct: [id number] Name: ARMIN TURCIOS Rep #:[id number] : 1950 73 From: Alejandro bar DPM [...] have been following with Dr. Anderson in [place] as well as PCP Dr. Olguin. They [...] Start: 03/07/23 08:25 Freq: Status: Active Protocol: BRYANNA.SHANNAN Activity Type [...] service Follow-up Visit Follow-up Visit Follow-up Visit (Physician/COOKIE BREAKER (Physician/COOKIE BREAKER (Physician/COOKIE BREAKER ) ) ) Arrival Mode Ambulatory,Cane Ambulatory,Cane [...] Pain Free? Yes Yes Yes 03/28/23 08:17 - Today's Visit Information Type of service Follow-up Visit (Physician/COOKIE BREAKER ) Arrival Mode Ambulatory,Cane Transfer Assistance Accompanied [...] Date Recorded By Document 03/07/23 16:22 PL [id number] 03/07/23 16:26 PL Document 03/14/23 17:51 PL [id number] 03/14/23 17:54 PL Document 03/21/23 16:21 PL [id number] 03/21/23 16:23 PL 03/07/23 03/14/23 03/21/23 16:22 [...] Yes Yes Yes #8 L Leon -Time : 08:56 09:20 -Correct Patient Yes Yes Yes [...] Date 12/02/27 12/02/27 12/02/27 -Product Lot Number [id number] 025 -Percent Used 100 100 [...] status: with other specified complication Diabetes mellitus intermediate designer insulin use: with intermediate designer use Qualified Code(s): E11.69 - Type 2 diabetes mellitus with other specified complication; Z79.4 - manager long term care (current) use of insulin (7) Hyperlipidemia: CODE(S): [...] No signs of infection. Pain: May take byak-ibu-oswgzbg Tylenol extra strength for discomfort. Host factors: DM type II, chronic venous stasis, CHF, COPD, blindness I answered all the patient's questions. To return to the wound healing center in 2 weeks or call sooner if the patient has any questions or concerns. 03/28/23 1223 <Electronically signed by Alejandro Talbot DPM> Cosigner Signature (if applicable): CC: ~ Signed [facility] Work Phone: [phone]) 746-432810-20-2023 Progress note Author Alejandro Talbot [facility] March 22, 2023 12:44am Note Date/Time March 22, 2023 1 2:42am [facility] [address] [place] [address] Progress Note - Wound Care 03/22/23 0039 MR#: [id number] Acct: [id number] Name: ARMIN TURCIOS Rep #:[id number] : 1950 72 From: Alejandro bar DPM [...] have been following with Dr. Anderson in [place] as well as PCP Dr. Olguin. They [...] service Follow-up Visit Follow-up Visit Follow-up Visit (Physician/COOKIE BREAKER (Physician/COOKIE BREAKER (Physician/COOKIE BREAKER ) ) ) Arrival Mode Ambulatory,Cane Ambulatory,Cane [...] 08:42 KW Desktop 03/21/23 08:47 KW 03/07/23 03/21/23 08:26 08:42 [...] Date Recorded By Document 03/07/23 16:22 PL [id number] 03/07/23 16:26 PL Document 03/14/23 17:51 PL [id number] 03/14/23 17:54 PL Document 03/21/23 16:21 PL [id number] 03/21/23 16:23 PL 03/07/23 03/14/23 03/21/23 16:22 [...] Date 12/02/27 12/02/27 12/02/27 -Product Lot Number [id number] 025 -Percent Used 100 100 [...] 3 - General Ulcer D/C NN Start: 10/05/23 08:25 Freq: Status: Active Protocol: Activity Type [...] diabetes mellitus without complications QUALIFIERS: Diabetes mellitus intermediate designer insulin use: with intermediate designer use Diabetes mellitus complication status: with other specified complication Qualified Code(s): E11.69 - Type 2 diabetes mellitus with other specified complication; Z79.4 - nursing home (current) use of insulin (7) Hyperlipidemia: CODE(S): [...] No signs of infection. Pain: May take ltkv-ucq-dcsvbek Tylenol extra strength for discomfort. Host factors: DM type II, chronic venous stasis, CHF, COPD, blindness I answered all the patient's questions. To return to the wound healing center in 1 week or call sooner if the patient has any questions or concerns. 03/22/23 0044 <Electronically signed by Alejandro Talbot DPM> Cosigner Signature (if applicable): CC: ~ Signed [facility] Work Phone: [phone]) 954-135910-12-2023 Progress note Author Alejandro Talbot [facility] March 14, 2023 9:26am Note Date/Time March 14, 2023 8 :40am [facility] [address] [place] [address] Progress Note - Wound Care 03/14/23 0839 MR#: [id number] Acct: [id number] Name: ARMIN TURCIOS Rep #:[id number] : 1950 72 From: Alejandro bar DPM [...] have been following with Dr. Anderson in [place] as well as PCP Dr. Olguin. They [...] Start: 03/07/23 08:25 Freq: Status: Active Protocol: BRYANNA.SHANNAN Activity Type Activity Date Activity User E-sign Co-sign Detail Recorded Client Recorded Date Recorded By Document 03/07/23 08:26 KW Desktop 03/07/23 08:39 KW 03/07/23 08:26 - Today's Visit Information Type of service Follow-up Visit (Physician/COOKIE BREAKER ) Arrival Mode Ambulatory,Cane Accompanied by Patient [...] 03/07/23 08:26 KW Desktop 03/07/23 08:39 KW 03/07/23 08:26 Wound Center Nurse 1 #9 [...] Date Recorded By Document 03/07/23 16:22 PL [id number] 03/07/23 16:26 PL 03/07/23 16:22 Wound Center [...] Disc -Expiration Date 12/02/27 -Product Lot Number [id number] -Percent Used 100 -Bleeding Controlled with [...] status: with other specified complication Diabetes mellitus shelter insulin use: with intermediate designer use Qualified Code(s): E11.69 - Type 2 diabetes mellitus with other specified complication; Z79.4 - nursing home (current) use of insulin (7) Hyperlipidemia: CODE(S): [...] No signs of infection. Pain: May take kbxs-jfy-pyhxqzt Tylenol extra strength for discomfort. Host factors: DM type II, chronic venous stasis, CHF, COPD, blindness I answered all the patient's questions. To return to the wound healing center in 1 week or call sooner if the patient has any questions or concerns. 03/14/23925 <Electronically signed by Alejandro Talbot DPM> Cosigner Signature (if applicable): CC: ~ Signed [facility] Work Phone: 1(571) 609-929510-05-2023 Progress note Author Alejandro Talbot [facility] March 07, 2023 10:18am Note Date/Time March 07, 2023 9: 38am [facility] [address] [place] [id number] Progress Note - Wound Care 03/07/23929 MR#: [id number] Acct: [id number] Name: ARMIN TURCIOS Rep #:[id number] : 1950 72 From: Alejandro bar DPM [...] have been following with Dr. Anderson in [place] as well as PCP Dr. Olguin. They [...] Start: 03/07/23 08:25 Freq: Status: Active Protocol: BRYANNA.SHANANN Activity Type Activity Date Activity User E-sign Co-sign Detail Recorded Client Recorded Date Recorded By Document 03/07/23 08:26 KW Desktop 03/07/23 08:39 KW 03/07/23 08:26 - Today's Visit Information Type of service Follow-up Visit (Physician/COOKIE BREAKER ) Arrival Mode Ambulatory,Cane Accompanied by Patient [...] 03/07/23 08:26 KW Desktop 03/07/23 08:39 KW 03/07/23 08:26 Wound Center Nurse 1 #9 [...] Calf (cm) 37.2 Left Ankle (cm) 22.0 BRYANNA - Nurse 3 - General Ulcer D/C [...] status: with other specified complication Diabetes mellitus shelter insulin use: with intermediate designer use Qualified Code(s): E11.69 - Type 2 diabetes mellitus with other specified complication; Z79.4 - manager long term care (current) use of insulin (7) Hyperlipidemia: CODE(S): [...] No signs of infection. Pain: May take gvba-eoe-ypnsyeo Tylenol extra strength for discomfort. Host factors: DM type II, chronic venous stasis, CHF, COPD, blindness I answered all the patient's questions. To return to the wound healing center in 1 week or call sooner if the patient has any questions or concerns. 03/07/23 1018 <Electronically signed by Alejandro Talbot DPM> Cosigner Signature (if applicable): CC: ~ Signed [facility] Work Phone: 1(448) 347-115709-28-2023 Progress note Author Alejandro Talbot [facility] February 28, 2023 9:13am Note Date/Time February 28, 2023 8:33am [facility] [address] [place] [address] Progress Note - Wound Care 02/28/23 0833 MR#: [id number] Acct: [id number] Name: ARMIN TURCIOS Rep #:[id number] : 1950 72 From: Alejandro bar DPM [...] have been following with Dr. Anderson in [place] as well as PCP Dr. Olguin. They [...] Date Recorded By Document 02/14/23 08:08 DL [id number] 02/14/23 08:25 DL Edit Result 02/14/23 08:08 DL (1) [id number] 02/14/23 08:44 DL Document 02/21/23 08:31 DL Desktop 02/21/23 08:34 DL Document 02/28/23 08:22 DL Desktop 02/28/23 08:31 DL (1) Preferred language => Citizen Of [place] Able to Read => No: blind Able [...] to Perform => Denies Any => Declines Cultural/Synagogue Needs that may affect => No Treatment Plan Would you allow our hospital machine deburrer to => No meet you for the purpose of spiritual/ emotional support? Research Hydraulic Engineer to contact place of synagogue => No Discharge Instructions - Person Taught => Patient, => Significant Other Dressing Your Wound - Person Taught => Patient, => Significant Other *Welcome to the Wound Center - Person Taught => Patient, => Significant Other 02/14/23 02/21/23 02/28/23 08:08 08:31 08:22 - Today's Visit Information Type of service Initial Visit Follow-up Visit Follow-up Visit (Physician/COOKIE BREAKER (Physician/COOKIE BREAKER ) ) Arrival Mode Ambulatory,Cane Ambulatory Ambulatory, [...] & Hygeine No Communication Assessment Preferred language Citizen Of [place] Able to Read No: blind Able to [...] in Ability to Perform Denies Any Declines Culture/Synagogue/Research Hydraulic Engineer Cultural/Synagogue Needs that may affect No Treatment Plan Would you allow our hospital machine deburrer to No meet you for the purpose of spiritual/ emotional support? Research Hydraulic Engineer to contact place of synagogue No Teaching: Wound Center Discharge Instructions -Person Taught Patient, Significant Other Dressing Your Wound -Person Taught Patient, Significant Other *Welcome to the Wound Center -Person Taught Patient, Significant Other WC - Nurse 1 - General Ulcer Measurement Start: 02/14/23 08:08 Freq: Status: Active Protocol: Activity Type Activity Date Activity User E-sign Co-sign Detail Recorded Client Recorded Date Recorded By Document 02/14/23 08:08 DL [id number] 02/14/23 08:25 DL Document 02/21/23 08:31 DL [...] (1-33%) Medium (34-66%) Medium (34-66%) -Granulation Quality [place] -Necrosis Amt Large (67-100%) Medium (34-66%) Medium [...] Date Recorded By Document 02/14/23 12:48 PL [id number] 02/14/23 12:50 PL Document 02/21/23 11:55 PL [id number] 02/21/23 11:57 PL 02/14/23 02/21/23 12:48 11:55 [...] Disc -Expiration Date 11/02/27 -Product Lot Number [id number] -Percent Used 100 -Bleeding Controlled with [...] Recorded Date Recorded By Document 02/14/23 09:08 [id number] 02/14/23 09:16 KW Document 02/21/23 09:01 DL [...] status: with other specified complication Diabetes mellitus shelter insulin use: with intermediate designer use Qualified Code(s): E11.69 - Type 2 diabetes mellitus with other specified complication; Z79.4 - nursing home (current) use of insulin (5) Hyperlipidemia: CODE(S): [...] No signs of infection. Pain: May take ueoy-qzb-ihyeevy Tylenol extra strength for discomfort. Host factors: DM type II, chronic venous stasis, CHF, COPD, blindness I answered all the patient's questions. To return to the wound healing center in 1 week or call sooner if the patient has any questions or concerns. 02/28/23912 <Electronically signed by Alejandro Talbot DPM> Cosigner Signature (if applicable): CC: ~ Signed [facility] Work Phone: 1(143) 215-607709-21-2023 Progress note Author Alejandro Talbot [facility] February 21, 2023 9:27am Note Date/Time February 21, 2023 9:05am [facility] [address] [place] [address] [place] [address] Progress Note - Wound Care 02/21/23 0904 MR#: [id number] Acct: [id number] Name: ARMIN TURCIOS Rep #:[id number] : 1950 72 From: Alejandro bar DPM PCP: Dr. Jessi Olguin MD Status:[facility] Location: History of Present Illness Date of [...] have been following with Dr. Anderson in [place] as well as PCP Dr. Olguin. They [...] Date Recorded By Document 02/14/23 08:08 DL [id number] 02/14/23 08:25 DL Edit Result 02/14/23 08:08 DL (1) [id number] 02/14/23 08:44 DL Document 02/21/23 08:31 DL Desktop 02/21/23 08:34 DL (1) Preferred language => Citizen Of [place] Able to Read => No: blind Able [...] to Perform => Denies Any => Declines Cultural/Synagogue Needs that may affect => No Treatment Plan Would you allow our hospital machine deburrer to => No meet you for the purpose of spiritual/ emotional support? Research Hydraulic Engineer to contact place of synagogue => No Discharge Instructions - Person Taught => Patient, => Significant Other Dressing Your Wound - Person Taught => Patient, => Significant Other *Welcome to the Wound Center - Person Taught => Patient, => Significant Other 02/14/23 02/21/23 08:08 08:31 WC - Today's Visit Information Type of service Initial Visit Follow-up Visit (Physician/COOKIE BREAKER ) Arrival Mode Ambulatory,Cane Ambulatory Transfer Assistance [...] & Hygeine No Communication Assessment Preferred language Citizen Of [place] Able to Read No: blind Able to [...] in Ability to Perform Denies Any Declines Culture/Synagogue/Research Hydraulic Engineer Cultural/Synagogue Needs that may affect No Treatment Plan Would you allow our hospital machine deburrer to No meet you for the purpose of spiritual/ emotional support? Research Hydraulic Engineer to contact place of synagogue No Teaching: Wound Center Discharge Instructions -Person Taught Patient, Significant Other Dressing Your Wound -Person Taught Patient, Significant Other *Welcome to the Wound Center -Person Taught Patient, Significant Other WC - Nurse 1 - General Ulcer Measurement Start: 02/14/23 08:08 Freq: Status: Active Protocol: Activity Type Activity Date Activity User E-sign Co-sign Detail Recorded Client Recorded Date Recorded By Document 02/14/23 08:08 DL [id number] 02/14/23 08:25 DL Document 02/21/23 08:31 DL [...] Amt Small (1-33%) Medium (34-66%) -Granulation Quality [place] Red -Necrosis Amt Large (67-100%) Medium (34-66%) [...] Date Recorded By Document 02/14/23 12:48 PL [id number] 02/14/23 12:50 PL 02/14/23 12:48 Wound Center [...] Recorded Date Recorded By Document 02/14/23 09:08 [id number] 02/14/23 09:16 KW Document 02/21/23 09:01 DL [...] status: with other specified complication Diabetes mellitus intermediate designer insulin use: with intermediate designer use Qualified Code(s): E11.69 - Type 2 diabetes mellitus with other specified complication; Z79.4 - manager long term care (current) use of insulin (5) Hyperlipidemia: CODE(S): [...] No signs of infection. Pain: May take cqjd-gcq-bykinvg Tylenol extra strength for discomfort. Host factors: DM type II, chronic venous stasis, CHF, COPD, blindness I answered all the patient's questions. To return to the wound healing center in 1 week or call sooner if the patient has any questions or concerns. 02/21/23926 <Electronically signed by Alejandro Talbot DPM> Cosigner Signature (if applicable): CC: ~ Signed [facility] Work Phone: 1(646) 667-987809-14-2023 History and physical note Author Alejandro Talbot [facility] February 14, 2023 12:11pm Note Date/Time February 14, 2023 8:27am [facility] [address] [place] [address] H&P Exam - Wound Care 02/14/23826 MR#: [id number] Acct: [id number] Name: ARMIN TURCIOS Rep #:[id number] : 1950 72 From: Alejandro bar DPM [...] have been following with Dr. Anderson in [place] as well as PCP Dr. Olguin. They stateoccasional use of mupirocin topical ointment but otherwise have not been applying dressings to the site. They state the wound has been present for a few weeks and has not made much progress and thus they were referred to the wound care center for continued wound healing. He denies N/V/F/chills. He has no further complaints. [facility] Medical History Ambulates with cane Anemia Anxiety [...] Date Recorded By Document 02/14/23 08:08 DL [id number] 02/14/23 08:25 DL 02/14/23 08:08 WC - Today's Visit Information Type of [...] Date Recorded By Document 02/14/23 08:08 DL [id number] 02/14/23 08:25 DL 02/14/23 08:08 Wound Center Nurse 1 #8 L Leon -Current Size (cm) - Length 1.8 -Current Size (cm) - Width 2.2 -Current Size (cm) - Depth 0.2 -Total Square Cm 3.96 -Photo Taken Yes -Classification - Thickness Full Thickness without Exposed Support Structure -Exudate Amt Medium -Exudate Type Serosanguineous -Wound Margin Distinct, Outline Attached -Granulation Amt Small (1-33%) -Granulation Quality [place] -Necrosis Amt Large (67-100%) -Necrotic Tissue Type [...] diabetes mellitus without complications QUALIFIERS: Diabetes mellitus shelter insulin use: with intermediate designer use Diabetes mellitus complication status: with other specified complication Qualified Code(s): E11.69 - Type 2 diabetes mellitus with other specified complication; Z79.4 - nursing home (current) use of insulin (5) Hyperlipidemia: CODE(S): [...] No signs of infection. Pain: May take rgim-rzv-ybqgksj Tylenol extra strength for discomfort. Host factors: DM type II, chronic venous stasis, CHF, COPD, blindness I answered all the patient's questions. To return to the wound healing center in 1 week or call sooner if the patient has any questions or concerns. 02/14/23 1211 <Electronically signed by Alejandro Talbot DPM> Cosigner Signature (if applicable): CC: ~ Signed [facility] Work Phone: Evaluation note* Diagnosis Onset Date Resolution Status Bronchiectasis chronic Chronic diastolic (congestive) heart failure chronic COPD (chronic obstructive pulmonary disease) chronic Ulcer of left lower extremity with fat layer exposed acute Venous insufficiency of both lower extremities acute DM type 2 (diabetes mellitus, type 2) chronic [facility] Work Phone: Evaluation note* Diagnosis Onset Date [...] type 2 (diabetes mellitus, type 2) chronic [facility] Work Phone: evaluation note* Diagnosis Onset Date Resolution Status Ulcer [...] 2) chronic Infected cyst of skin acute [facility] Work Phone: Evaluation note* Diagnosis Onset Date Resolution Status Infected cyst of skin acute Open wound of back without complication acute DM type 2 (diabetes mellitus, type 2) chronic Infected cyst of skin acute H/O excision of epidermal inclusion cyst acute H/O excision of epidermal inclusion cyst acute Bronchiectasis chronic H/O excision of epidermal inclusion cyst acute [facility] Work Phone: Evaluation noteNo assessment information available [facility] Work Phone: evaluation note* Diagnosis Onset Date Resolution Status Chronic [...] left calf with fat layer exposed chronic [facility] Work Phone: Evaluation note* Diagnosis Onset Date [...] left calf with fat layer exposed chronic [facility] Work Phone: Evaluation note* Diagnosis Onset Date [...] left calf with fat layer exposed chronic [facility] Work Phone: Evaluation note* Diagnosis Onset Date [...] left calf with fat layer exposed chronic [facility] Work Phone: Evaluation note* Diagnosis Onset Date [...] left calf with fat layer exposed chronic [facility] Work Phone: Evaluation note* Diagnosis Onset Date [...] left calf with fat layer exposed chronic [facility] Work Phone: Evaluation note* Diagnosis Onset Date [...] left calf with fat layer exposed chronic [facility] Work Phone: Evaluation note* Diagnosis Onset Date [...] left ankle with fat layer exposed chronic [facility] Work Phone: History and physical note Author Shonda Gaston [facility] Note Date/Time September 01, 2024 10:0 1pm [facility] Medical Records Department [address] [place] [address] H&P Exam - Hospitalist 09/01/241 MR#: [id number] Acct: [id number] Name: LATRICE TURCIOS Rep #:[id number] : 1950 74 From: Shonda Gaston MD PCP: Dr. Jessi Olguin MD Status:ADM IN Location: [place] [id number] HPI - General General Date of Admission: [...] AICD, Obesity, Hypothyroidism who presents to the [facility] ED on 09/01/24 with history of onset [...] to the hospital for treatment of pneumonia. [facility] Medical History Coronary artery disease Kidney stones [...] insulin glargine 100 unit/mL 10 unit subcut 0810/0509/01/24 History subcutaneous solution (Lantus U-100 Insulin) PEP [...] % (Auto) 56.2, Lymph % (Auto) 30.1, [place] % (Auto) 10.7 H, Eos % (Auto) [...] for infiltrates. Elevated left hemidiaphragm. 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 Will continue metoprolol regimen. Per most recent cardiology note/06/27 EP follow-up is arranged for next month at [place]. #7. CAD: Status post PCI 06/25/2024, will [...] 16 minutes. Charges/Coding Visit Charges Inpatient E&M: 71488 Init Hosp L3 Procedures Hospitalists Procedures: 68578 Advncd Care Plan 30 Min 09/01/24 2201 <Electronically signed by Shonda Gaston MD> Cosigner Signature (if applicable): CC: Dr. Shonda Gaston MD; Dr. Jessi Olguin MD~ Signed [facility] Work Phone: Hospital course Narrative No data available for this section [facility] Summary Purpose Family History No Family History Records Found Relationship Condition Age at Onset Recorded Date/T sayra mother Malignant neoplasm Unknown Relationship Condition Age at Onset Recorded Date/T sayra mother Malignant neoplasm Unknown sister Cardiac disease Unknown Advance Directives No Advanced Directives Records Found Advance Directive Response Recorded Date/ Time Living Will No August 14, 2020 4:15pm Power of Bookkeeping Machine Mechanic Yes August 14 4:15pm Advance Directive Response Recorded Date/ Time Living Will No January 02, 2022 1:25pm Power of Bookkeeping Machine Mechanic No January 02 1:25pm Advance Directive Response Recorded Date/ Time Living Will No July 10 10:35pm Power of Bookkeeping Machine Mechanic No July 10, 2022 10:35pm Advance Directive Response Recorded Date/ Time Living Will No July 10 11:35pm Power of Bookkeeping Machine Mechanic No July 10, 2022 11:35pm Advance Directive Response Recorded Date/ Time Living Will No May 25 7:07pm Do you have a Healthcare Power of Bookkeeping Machine Mechanic? No May 25, 2024 7:07pm Living Will No June 24 1:39pm Do you have a Healthcare Power of Bookkeeping Machine Mechanic? No June 24, 2024 1:39pm Living Will No July 07 2:59am Do you have a Healthcare Power of Bookkeeping Machine Mechanic? Yes July 07, 2024 2:59am Name of Medical Power of Bookkeeping Machine Mechanic Callie July 07, 2024 2:59am Living Will No September 01, 2024 4:47pm Do you have a Healthcare Power of Bookkeeping Machine Mechanic? No September 01, 2024 4:47pm Advance Directive Response Recorded Date/ Time Living Will No May 25 7:07pm Do you have a Healthcare Power of Bookkeeping Machine Mechanic? No May 25, 2024 7:07pm Living Will No June 24 1:39pm Do you have a Healthcare Power of Bookkeeping Machine Mechanic? No June 24, 2024 1:39pm Living Will No July 07 2:59am Do you have a Healthcare Power of Bookkeeping Machine Mechanic? Yes July 07, 2024 2:59am Name of Medical Power of Bookkeeping Machine Mechanic Callie July 07, 2024 2:59am Living Will No September 01, 2024 10:11pm Do you have a Healthcare Power of Bookkeeping Machine Mechanic? No September 01, 2024 10:11pm Advance Directive Response Recorded Date/ Time Living Will No June 24 1:39pm Do you have a Healthcare Power of Bookkeeping Machine Mechanic? No June 24, 2024 1:39pm Living Will No July 07 2:59am Do you have a Healthcare Power of Bookkeeping Machine Mechanic? Yes July 07, 2024 2:59am Name of Medical Power of Bookkeeping Machine Mechanic Callie July 07, 2024 2:59am Living Will No September 01, 2024 10:11pm Do you have a Healthcare Power of Bookkeeping Machine Mechanic? No September 01, 2024 10:11pm Living Will No September 21, 2024 3:03pm Do you have a Healthcare Power of Bookkeeping Machine Mechanic? No September 21, 2024 3:03pm Advance Directive Response Recorded Date/ Time Living Will No September 01, 2024 10:11pm Do you have a Healthcare Power of Bookkeeping Machine Mechanic? No September 01, 2024 10:11pm Living Will No September 21, 2024 3:03pm Do you have a Healthcare Power of Bookkeeping Machine Mechanic? No September 21, 2024 3:03pm Advance Directive Response Recorded Date/ Time Living Will No September 01, 2024 10:11pm Do you have a Healthcare Power of Bookkeeping Machine Mechanic? No September 01, 2024 10:11pm Living Will No September 21, 2024 3:03pm Do you have a Healthcare Power of Bookkeeping Machine Mechanic? No September 21, 2024 3:03pm Do you have a Healthcare Power of Bookkeeping Machine Mechanic? Yes November 14, 2024 1:33pm Chief Complaint and Reason for Visit Chief [...] EXCISION F/U Sebaceous Cyst Removal Upper Back 8/5 Wound Check Sebacious Cyst 01/12 6 M FU 2WK F/U Wound Check Sebacious Cyst 01/12 Reason for Visit Infected cyst of ski [...] Moderate pleural effusion August 03 8:15am S/P [facility] 06/27September 01, 2024 7:52 am CHEST PAIN, [...] Moderate pleural effusion August 03 8:15am S/P [facility] 06/27September 01, 2024 7:52 am CHEST PAIN, [...] Moderate pleural effusion August 03 8:15am S/P [facility] 06/27September 01, 2024 7:52 am CHEST PAIN, [...] 2024 9:02 pm Chief Complaint Admit Date Moderate pleural effusion August 03 8:15am S/P [facility] 06/27September 01, 2024 7:52 am CHEST PAIN, HYPOXIA, PNA September 01, 2024 9:02pm CHEST PAIN, HYPOXIA, PNA September 02, 2024 9:28am CHEST PAIN, HYPOXIA, PNA September 03, 2024 10:48am abd pain, rib pain September 21, 2024 2:3 2pm RUQ PAIN October 14, 2024 8:47a m 3 M FU November 10, 2024 8:59 am INTERMITTENT V TACH November 14, 2024 12:5 5pm INTERMITTENT V TACH November 14, 2024 1:41 pm INTERMITTENT V TACH November 15, 2024 10:4 5am INTERMITTENT V TACH November 15, 2024 1:13 pm INTERMITTENT V TACH November 16, 2024 7:01 am INTERMITTENT V TACH November 16, 2024 8:57 am INTERMITTENT V TACH November 17, 2024 9:53 am INTERMITTENT V TACH November 17, 2024 1:26 pm INTERMITTENT V TACH November 18, 2024 7:34 am INTERMITTENT V TACH November 18, 2024 9:31 am Reason for Visit Admit Date Bronchiectasis [...] pm Pneumonia September 01, 2024 9:[address] of the chest November 10, 2024 8:59am Bronchiectasis November 10, 2024 8:59 am Chronic diastolic (congestive) heart eliana lure November 10, 2024 8:59am COPD (chronic obstructive pulmonary dise ase) November 10, 2024 8:59am Atrial fibrillation November 14, 2024 12:5 5pm Coronary artery disease November 14, 2024 12:55pm Single implantable cardioverter-defibril lator (ICD) in situ November 14, 2024 12:55pm V tach November 14, 2024 12:5 5pm Chief Complaint Admit Date Moderate pleural effusion August 03 8:15am S/P [facility] 06/27September 01, 2024 7:52 am CHEST PAIN, HYPOXIA, PNA September 01, 2024 9:02pm CHEST PAIN, HYPOXIA, PNA September 02, 2024 9:28am CHEST PAIN, HYPOXIA, PNA September 03, 2024 10:48am abd pain, rib pain September 21, 2024 2:3 2pm RUQ PAIN October 14, 2024 8:47a m 3 M FU November 10, 2024 8:59 am INTERMITTENT V TACH November 14, 2024 12:5 5pm INTERMITTENT V TACH November 14, 2024 1:41 pm INTERMITTENT V TACH November 15, 2024 10:4 5am INTERMITTENT V TACH November 15, 2024 1:13 pm INTERMITTENT V TACH November 16, 2024 7:01 am INTERMITTENT V TACH November 16, 2024 8:57 am INTERMITTENT V TACH November 17, 2024 9:53 am INTERMITTENT V TACH November 17, 2024 1:26 pm INTERMITTENT V TACH November 18, 2024 7:34 am INTERMITTENT V TACH November 18, 2024 9:31 am 3 M FU December 01, 2024 8:22a m Reason for Visit Admit Date Bronchiectasis August 03, 2024 8:15 am Chronic diastolic (congestive) heart eliana lure August 03, 2024 8:15am COPD (chronic obstructive pulmonary dise ase) August 03, 2024 8:15am History of coronary artery stent placeme nt September 01, 2024 7:52am Single implantable cardioverter-defibril lator (ICD) in situ September 01, 2024 7:52am Ventricular tachycardia September 01, 2024 7:52am Atrial fibrillation September 01, 2024 7:52 am Essential (primary) hypertension September 012024 7:52am Hyperlipidemia September 01, 2024 7:52 am DM type 2 (diabetes mellitus, type 2) Ap 2024 9:02pm Chest pain September 01, 2024 9:02 pm Pneumonia September 01, 2024 9:[address] of the chest November 10, 2024 8:59am Bronchiectasis November 10, 2024 8:59 am Chronic diastolic (congestive) heart eliana lure November 10, 2024 8:59am COPD (chronic obstructive pulmonary dise ase) November 10, 2024 8:59am Coronary artery disease November 14, 2024 12:55pm Single implantable cardioverter-defibril lator (ICD) in situ November 14, 2024 12:55pm Atrial fibrillation November 14, 2024 12:5 5pm V tach November 14, 2024 12:5 5pm History of coronary artery stent placeme nt December 01, 2024 8:22am Single implantable cardioverter-defibril lator (ICD) in situ December 01, 2024 8:22am Ventricular tachycardia December 01, 2024 8 :22am Atrial fibrillation December 01, 2024 8:22a m Essential (primary) hypertension December 8:22am Hyperlipidemia December 01, 2024 8:22a m Chief Complaint Admit Date S/P [facility] 06/27September 01, 2024 7:52 am CHEST PAIN, HYPOXIA, PNA September 01, 2024 9:02pm CHEST PAIN, HYPOXIA, PNA September 02, 2024 9:28am CHEST PAIN, HYPOXIA, PNA September 03, 2024 10:48am abd pain, rib pain September 21, 2024 2:3 2pm RUQ PAIN October 14, 2024 8:47a m 3 M FU November 10, 2024 8:59 am INTERMITTENT V TACH November 14, 2024 12:5 5pm INTERMITTENT V TACH November 14, 2024 1:41 pm INTERMITTENT V TACH November 15, 2024 10:4 5am INTERMITTENT V TACH November 15, 2024 1:13 pm INTERMITTENT V TACH November 16, 2024 7:01 am INTERMITTENT V TACH November 16, 2024 8:57 am INTERMITTENT V TACH November 17, 2024 9:53 am INTERMITTENT V TACH November 17, 2024 1:26 pm INTERMITTENT V TACH November 18, 2024 7:34 am INTERMITTENT V TACH November 18, 2024 9:31 am 3 M FU December 01, 2024 8:22a m Centrilobular emphysema; HX PNEUM 09/02/24 December 01, 2024 2:41pm Reason for Visit Admit Date History of coronary artery stent placeme nt September 01, 2024 7:52am Single implantable cardioverter-defibril lator (ICD) in situ September 01, 2024 7:52am Ventricular tachycardia September 01, 2024 7:52am Atrial fibrillation September 01, 2024 7:52 am Essential (primary) hypertension September 012024 7:52am Hyperlipidemia September 01, 2024 7:52 am DM type 2 (diabetes mellitus, type 2) Ap 2024 9:02pm Chest pain September 01, 2024 9:02 pm Pneumonia September 01, 2024 9:[address] of the chest November 10, 2024 8:59am Bronchiectasis November 10, 2024 8:59 am Chronic diastolic (congestive) heart eliana lure November 10, 2024 8:59am COPD (chronic obstructive pulmonary dise ase) November 10, 2024 8:59am Coronary artery disease November 14, 2024 12:55pm Single implantable cardioverter-defibril lator (ICD) in situ November 14, 2024 12:55pm Atrial fibrillation November 14, 2024 12:5 5pm V tach November 14, 2024 12:5 5pm History of coronary artery stent placeme nt December 01, 2024 8:22am Single implantable cardioverter-defibril lator (ICD) in situ December 01, 2024 8:22am Ventricular tachycardia December 01, 2024 8 :22am Atrial fibrillation December 01, 2024 8:22a m Essential (primary) hypertension December 8:22am Hyperlipidemia December 01, 2024 8:22a m Chief Complaint Admit Date S/P [facility] 06/27September 01, 2024 7:52 am CHEST PAIN, HYPOXIA, PNA September 01, 2024 9:02pm CHEST PAIN, HYPOXIA, PNA September 02, 2024 9:28am CHEST PAIN, HYPOXIA, PNA September 03, 2024 10:48am abd pain, rib pain September 21, 2024 2:3 2pm RUQ PAIN October 14, 2024 8:47a m 3 M FU November 10, 2024 8:59 am INTERMITTENT V TACH November 14, 2024 12:5 5pm INTERMITTENT V TACH November 14, 2024 1:41 pm INTERMITTENT V TACH November 15, 2024 10:4 5am INTERMITTENT V TACH November 15, 2024 1:13 pm INTERMITTENT V TACH November 16, 2024 7:01 am INTERMITTENT V TACH November 16, 2024 8:57 am INTERMITTENT V TACH November 17, 2024 9:53 am INTERMITTENT V TACH November 17, 2024 1:26 pm INTERMITTENT V TACH November 18, 2024 7:34 am INTERMITTENT V TACH November 18, 2024 9:31 am 3 M FU December 01, 2024 8:22a m Centrilobular emphysema; HX PNEUM 09/02/24 December 01, 2024 2:41pm 6 wk FU December 25, 2024 10:3 5am Reason for Visit Admit Date History of coronary artery stent placeme nt September 01, 2024 7:52am Single implantable cardioverter-defibril lator (ICD) in situ September 01, 2024 7:52am Ventricular tachycardia September 01, 2024 7:52am Atrial fibrillation September 01, 2024 7:52 am Essential (primary) hypertension September 012024 7:52am Hyperlipidemia September 01, 2024 7:52 am DM type 2 (diabetes mellitus, type 2) Ap 2024 9:02pm Chest pain September 01, 2024 9:02 pm Pneumonia September 01, 2024 9:[address] of the chest November 10, 2024 8:59am Bronchiectasis November 10, 2024 8:59 am Chronic diastolic (congestive) heart eliana lure November 10, 2024 8:59am COPD (chronic obstructive pulmonary dise ase) November 10, 2024 8:59am Coronary artery disease November 14, 2024 12:55pm Single implantable cardioverter-defibril lator (ICD) in situ November 14, 2024 12:55pm Atrial fibrillation November 14, 2024 12:5 5pm V tach November 14, 2024 12:5 5pm History of coronary artery stent placeme nt December 01, 2024 8:22am Single implantable cardioverter-defibril lator (ICD) in situ December 01, 2024 8:22am Ventricular tachycardia December 01, 2024 8 :22am Atrial fibrillation December 01, 2024 8:22a m Essential (primary) hypertension December 8:22am Hyperlipidemia December 01, 2024 8:22a m Abnormal CT of the chest December 25, 2024 10:35am Bronchiectasis December 25, 2024 10:3 5am Chronic diastolic (congestive) heart eliana lure December 25, 2024 10:35am COPD (chronic obstructive pulmonary dise ase) December 25, 2024 10:35am Additional Source Comments (unrecognized sect ion and content) No Status Records FoundNo Status Records FoundNo Status Records FoundNo Status Records Found INFORMATION SOURCE (unrecogn ized section and content) DATE CREATED AUTHOR 06/11/2018 [facility] ([place]) DATE CREATED AUTHOR AUTHOR'S ORGANIZ ATION 02/14/2021 [facility] DATE CREATED AUTHOR AUTHOR'S ORGANIZ ATION 07/07/2024 [facility] DATE CREATED AUTHOR AUTHOR'S ORGANIZ ATION 01/01/2025 [facility] Goals (unrecognized section and content) Goals [...] 2024 End: August 03, 2024 Mey Rice MAINTENANCE AND UTILITIES SUPERVISOR, MAINTENANCE AND UTILITIES SUPERVISOR-C Attending Provider Active Start: August 03, 2024 [...] November 10, 2024 End: November 10, 2024 MAE Lopes Attending Provider Active Start: November 10, 2024 End: November 10, 2024 Team Status: Inactive Member Role Status Dates Dr. Jessi Olguin MD Primary Care Provider Active Start: November 14, 2024 End: November 18, 2024 Dr. Hoang Robertson MD Emergency Provider Active S tart: November 14, 2024 End: November 18, 2024 Dr. Erin Morris MD Admit Provider Active St art: November 14, 2024 End: November 18, 2024 Dr. Erin Morris MD Other Provider Active St art: November 14, 2024 End: November 18, 2024 Dr. Judson Isabel MD Other Provider Active Start : November 14, 2024 End: November 18, 2024 Dr. Osmar Brown MD Attending Provider Active Start: November 14, 2024 End: November 18, 2024 Team Status: Active Member Role Status Dates Dr. Jessi Olguin MD Primary Care Provider Active Start: November 14, 2024 Dr. Hoang Robertson MD Emergency Provider Active S tart: November 14, 2024 Dr. Erin Morris MD Admit Provider Active St art: November 14, 2024 Dr. Erin Morris MD Other Provider Active St art: November 14, 2024 Dr. Johny Barclay MD Attending Provider Active Start: November 14, 2024 Dr. Johny Barclay MD Other Provider Active Star t: November 14, 2024 Team Status: Active Member Role Status Dates Dr. Jessi Olguin MD Primary Care Provider Active Start: November 15, 2024 Dr. Hoang Robertson MD Emergency Provider Active S tart: November 15, 2024 Dr. Erin Morris MD Admit Provider Active St art: November 15, 2024 Dr. Erin Morris MD Other Provider Active St art: November 15, 2024 Dr. Johny Barclay MD Attending Provider Active Start: November 15, 2024 Dr. Johny Barclay MD Other Provider Active Star t: November 15, 2024 Team Status: Active Member Role Status Dates Dr. Jessi Olguin MD Primary Care Provider Active Start: November 15, 2024 Dr. Hoang Robertson MD Emergency Provider Active S tart: November 15, 2024 Dr. Erin Morris MD Admit Provider Active St art: November 15, 2024 Dr. Erin Morris MD Attending Provider Active Start: November 15, 2024 Dr. Erin Morris MD Other Provider Active St art: November 15, 2024 Dr. Johny Barclay MD Other Provider Active Star t: November 15, 2024 Team Status: Active Member Role Status Dates Dr. Jessi Olguin MD Primary Care Provider Active Start: November 16, 2024 Dr. Hoang Robertson MD Emergency Provider Active S tart: November 16, 2024 Dr. Erin Morris MD Admit Provider Active St art: November 16, 2024 Dr. Erin Morris MD Other Provider Active St art: November 16, 2024 Dr. Judson Isabel MD Attending Provider Active S tart: November 16, 2024 Dr. Judson Isabel MD Other Provider Active Start : November 16, 2024 Dr. Osmar Brown MD Other Provider Active Sta rt: November 16, 2024 Team Status: Active Member Role Status Dates Dr. Jessi Olguin MD Primary Care Provider Active Start: November 16, 2024 Dr. Hoang Robertson MD Emergency Provider Active S tart: November 16, 2024 Dr. Erin Morris MD Admit Provider Active St art: November 16, 2024 Dr. Erin Morris MD Other Provider Active St art: November 16, 2024 Dr. Judson Isabel MD Other Provider Active Start : November 16, 2024 Dr. Osmar Brown MD Attending Provider Active Start: November 16, 2024 Dr. Osmar Brown MD Other Provider Active Sta rt: November 16, 2024 Team Status: Active Member Role Status Dates Dr. Jessi Olguin MD Primary Care Provider Active Start: November 17, 2024 Dr. Hoang Robertson MD Emergency Provider Active S tart: November 17, 2024 Dr. Erin Morris MD Admit Provider Active St art: November 17, 2024 Dr. Erin Morris MD Other Provider Active St art: November 17, 2024 Dr. Judson Isabel MD Attending Provider Active S tart: November 17, 2024 Dr. Judson Isabel MD Other Provider Active Start : November 17, 2024 Dr. Osmar Brown MD Other Provider Active Sta rt: November 17, 2024 Team Status: Active Member Role Status Dates Dr. Jessi Olguin MD Primary Care Provider Active Start: November 17, 2024 Dr. Hoang Robertson MD Emergency Provider Active S tart: November 17, 2024 Dr. Erin Morris MD Admit Provider Active St art: November 17, 2024 Dr. Erin Morris MD Other Provider Active St art: November 17, 2024 Dr. Judson Isabel MD Other Provider Active Start : November 17, 2024 Dr. Osmar Brown MD Attending Provider Active Start: November 17, 2024 Dr. Osmar Brown MD Other Provider Active Sta rt: November 17, 2024 Team Status: Active Member Role Status Dates Dr. Jessi Olguin MD Primary Care Provider Active Start: November 18, 2024 Dr. Hoang Robertson MD Emergency Provider Active S tart: November 18, 2024 Dr. Erin Morris MD Admit Provider Active St art: November 18, 2024 Dr. Erin Morris MD Other Provider Active St art: November 18, 2024 Dr. Judson Isabel MD Attending Provider Active S tart: November 18, 2024 Dr. Judson Isabel MD Other Provider Active Start : November 18, 2024 Dr. Osmar Brown MD Other Provider Active Sta rt: November 18, 2024 Team Status: Active Member Role Status Dates Dr. Jessi Olguin MD Primary Care Provider Active Start: November 18, 2024 Dr. Hoang Robertson MD Emergency Provider Active S tart: November 18, 2024 Dr. Erin Morris MD Admit Provider Active St art: November 18, 2024 Dr. Erin Morris MD Other Provider Active St art: November 18, 2024 Dr. Judson Isabel MD Other Provider Active Start : November 18, 2024 Dr. Osmar Brown MD Attending Provider Active Start: November 18, 2024 Dr. Osmar Brown MD Other Provider Active Sta rt: November 18, 2024 Team Status: Active Member Role Status Dates Dr. Jessi Olguin MD Primary Care Provider Active Start: July 17, 2024 Ezequiel FERRER Attending Provider Active Start : July 17, 2024 Team Status: Active Member Role Status [...] Provider, Referring P rovider Active Mey Rice MAINTENANCE AND UTILITIES SUPERVISOR, MAINTENANCE AND UTILITIES SUPERVISOR-C Attending Provider Active Team Status: Inactive Member [...] Provider, Referring P rovider Active Sedrick Irvin MAINTENANCE AND UTILITIES SUPERVISOR, MAINTENANCE AND UTILITIES SUPERVISOR-C Active Danni Davis MAINTENANCE AND UTILITIES SUPERVISOR, MAINTENANCE AND UTILITIES SUPERVISOR-C Attending Provider Active Team Status: Inactive Member [...] Provider Active Start: June 26, 2024 Dr. Remus Ungur , DO Emergency Provider Active S tart: June [...] 2024 End: July 10, 2024 Danni Davis MAINTENANCE AND UTILITIES SUPERVISOR, MAINTENANCE AND UTILITIES SUPERVISOR-C Attending Provider Active Start: July 10, 2024 End: July 10, 2024 Danni Davis NP, MAINTENANCE AND UTILITIES SUPERVISOR-C Referring Provider Active Start: July 10, 2024 End: July 10, 2024 Team Status: Active Member Role Status Dates Dr. Jessi Olguin MD Primary Care Provider Active Start: September 01, 2024 Dr. Jessi Calloway DO Emergency Provider Active Start: September 01, 2024 Dr. Shonda Gaston MD Admit Provider Active St art: September 01, 2024 Dr. Shonad Gaston MD Attending Provider Active Start: September 01, 2024 Dr. Shonda Gaston MD Other Provider Active St art: September 01, 2024 Team Status: Active Member Role/Relationship Status Dates Dr. Jessi Olguin MD Primary Care Provider Active Team Status: Inactive Member Role/Relationship Status Dates Dr. Jessi Olguin MD Primary Care Provider Active Start: August 03, 2024 End: August 03, 2024 Dr. Jessi Olguin MD Referring Provider Active St art: August 03, 2024 End: August 03, 2024 Mey Rice MAINTENANCE AND UTILITIES SUPERVISOR, MAINTENANCE AND UTILITIES SUPERVISOR-C Attending Provider Active Start: August 03, 2024 End: August 03, 2024 Team Status: Inactive Member Role/Relationship Status Dates Dr. Jessi Olguin MD Primary Care Provider Active Start: September 01, 2024 End: September 01, 2024 Dr. Jessi Olguin MD Referring Provider Active St art: September 01, 2024 End: September 01, 2024 Sanaz Angel PA, PA Attending Provider Active Start: September 01, 2024 End: September 01, 2024 Team Status: Inactive Member Role/Relationship Status Dates Dr. Jessi Olguin MD Primary [...] September 03, 2024 Team Status: Active Member Role/Relationship Status Dates Dr. Jessi Olguin MD Primary [...] September 02, 2024 Team Status: Active Member Role/Relationship Status Dates Dr. Jessi Olguin MD Primary [...] September 03, 2024 Team Status: Inactive Member Role/Relationship Status Dates Dr. Jessi Olguin MD Primary Care Provider Active Start: September 04, 2024 End: September 04, 2024 Dr. Jessi Olguin MD Attending Provider Active St art: September 04, 2024 End: September 04, 2024 Dr. Jessi Olguin MD Referring Provider Active St art: September 04, 2024 End: September 04, 2024 Team Status: Inactive Member Role/Relationship Status Dates Dr. Jessi Olguin MD Primary [...] September 21, 2024 Team Status: Inactive Member Role/Relationship Status Dates Dr. Jessi Olguin MD Primary Care Provider Active Start: October 14, 2024 End: October 14, 2024 Dr. Jessi Olguin MD Attending Provider Active St art: October 14, 2024 End: October 14, 2024 Dr. Jessi Olguin MD Referring Provider Active St art: October 14, 2024 End: October 14, 2024 Team Status: Inactive Member Role/Relationship Status Dates Dr. Jessi Olguin MD Primary Care Provider Active Start: November 10, 2024 End: November 10, 2024 Dr. Jessi Olguin MD Referring Provider Active St art: November 10, 2024 End: November 10, 2024 MAE Lopes Attending Provider Active Start: November 10, 2024 End: November 10, 2024 Team Status: Inactive Member Role/Relationship Status Dates Dr. Jessi Olguin MD Primary Care Provider Active Start: November 14, 2024 End: November 18, 2024 Dr. Hoang Robertson MD Emergency Provider Active S tart: November 14, 2024 End: November 18, 2024 Dr. Erin Morris MD Admit Provider Active St art: November 14, 2024 End: November 18, 2024 Dr. Erin Morris MD Other Provider Active St art: November 14, 2024 End: November 18, 2024 Dr. Judson Isabel MD Other Provider Active Start : November 14, 2024 End: November 18, 2024 Dr. Osmar Brown MD Attending Provider Active Start: November 14, 2024 End: November 18, 2024 Team Status: Active Member Role/Relationship Status Dates Dr. Jessi Olguin MD Primary Care Provider Active Start: November 14, 2024 Dr. Hoang Robertson MD Emergency Provider Active S tart: November 14, 2024 Dr. Erin Morris MD Admit Provider Active St art: November 14, 2024 Dr. Erin Morris MD Other Provider Active St art: November 14, 2024 Dr. Johny Barclay MD Attending Provider Active Start: November 14, 2024 Dr. Johny Barclay MD Other Provider Active Star t: November 14, 2024 Team Status: Active Member Role/Relationship Status Dates Dr. Jessi Olguin MD Primary Care Provider Active Start: November 15, 2024 Dr. Hoang Robertson MD Emergency Provider Active S tart: November 15, 2024 Dr. Erin Morris MD Admit Provider Active St art: November 15, 2024 Dr. Eirn Morris MD Other Provider Active St art: November 15, 2024 Dr. Johny Barclay MD Attending Provider Active Start: November 15, 2024 Dr. Johny Barclay MD Other Provider Active Star t: November 15, 2024 Team Status: Active Member Role/Relationship Status Dates Dr. Jessi Olguin MD Primary Care Provider Active Start: November 15, 2024 Dr. Hoang Robertson MD Emergency Provider Active S tart: November 15, 2024 Dr. Erin Morris MD Admit Provider Active St art: November 15, 2024 Dr. Erin Morris MD Attending Provider Active Start: November 15, 2024 Dr. Erin Morris MD Other Provider Active St art: November 15, 2024 Dr. Johny Barclay MD Other Provider Active Star t: November 15, 2024 Team Status: Active Member Role/Relationship Status Dates Dr. Jessi Olguin MD Primary Care Provider Active Start: November 16, 2024 Dr. Hoang Robertson MD Emergency Provider Active S tart: November 16, 2024 Dr. Erin Morris MD Admit Provider Active St art: November 16, 2024 Dr. Erin Morris MD Other Provider Active St art: November 16, 2024 Dr. Judson Isabel MD Attending Provider Active S tart: November 16, 2024 Dr. Judson Isabel MD Other Provider Active Start : November 16, 2024 Dr. Osmar Brown MD Other Provider Active Sta rt: November 16, 2024 Team Status: Active Member Role/Relationship Status Dates Dr. Jessi Olguin MD Primary Care Provider Active Start: November 16, 2024 Dr. Hoang Robertson MD Emergency Provider Active S tart: November 16, 2024 Dr. Erin Morris MD Admit Provider Active St art: November 16, 2024 Dr. Erin Morris MD Other Provider Active St art: November 16, 2024 Dr. Judson Isabel MD Other Provider Active Start : November 16, 2024 Dr. Osmar Brown MD Attending Provider Active Start: November 16, 2024 Dr. Osmar Brown MD Other Provider Active Sta rt: November 16, 2024 Team Status: Active Member Role/Relationship Status Dates Dr. Jessi Olguin MD Primary Care Provider Active Start: November 17, 2024 Dr. Hoang Robertson MD Emergency Provider Active S tart: November 17, 2024 Dr. Erin Morris MD Admit Provider Active St art: November 17, 2024 Dr. Erin Morris MD Other Provider Active St art: November 17, 2024 Dr. Judson Isabel MD Attending Provider Active S tart: November 17, 2024 Dr. Judson Isabel MD Other Provider Active Start : November 17, 2024 Dr. Osmar Brown MD Other Provider Active Sta rt: November 17, 2024 Team Status: Active Member Role/Relationship Status Dates Dr. Jessi Olguin MD Primary Care Provider Active Start: November 17, 2024 Dr. Hoang Robertson MD Emergency Provider Active S tart: November 17, 2024 Dr. Erin Morris MD Admit Provider Active St art: November 17, 2024 Dr. Erin Morris MD Other Provider Active St art: November 17, 2024 Dr. Judson Isabel MD Other Provider Active Start : November 17, 2024 Dr. Osmar Brown MD Attending Provider Active Start: November 17, 2024 Dr. Osmar Brown MD Other Provider Active Sta rt: November 17, 2024 Team Status: Active Member Role/Relationship Status Dates Dr. Jessi Olguin MD Primary Care Provider Active Start: November 18, 2024 Dr. Hoang Robertson MD Emergency Provider Active S tart: November 18, 2024 Dr. Erin Morris MD Admit Provider Active St art: November 18, 2024 Dr. Erin Morris MD Other Provider Active St art: November 18, 2024 Dr. Judson Isabel MD Attending Provider Active S tart: November 18, 2024 Dr. Judson Isabel MD Other Provider Active Start : November 18, 2024 Dr. Osmar Brown MD Other Provider Active Sta rt: November 18, 2024 Team Status: Active Member Role/Relationship Status Dates Dr. Jessi Olguin MD Primary Care Provider Active Start: November 18, 2024 Dr. Hoang Robertson MD Emergency Provider Active S tart: November 18, 2024 Dr. Erin Morris MD Admit Provider Active St art: November 18, 2024 Dr. Erin Morris MD Other Provider Active St art: November 18, 2024 Dr. Judson Isabel MD Other Provider Active Start : November 18, 2024 Dr. Osmar Brown MD Attending Provider Active Start: November 18, 2024 Dr. Osmar Brown MD Other Provider Active Sta rt: November 18, 2024 Team Status: Inactive Member Role/Relationship Status Dates Dr. Jessi Olguin MD Primary Care Provider Active Start: December 01, 2024 End: December 01, 2024 Dr. Jessi Olguin MD Referring Provider Active St art: December 01, 2024 End: December 01, 2024 Sanaz Angel PA, PA Attending Provider Active Start: December 01, 2024 End: December 01, 2024 Team Status: Inactive Member Role/Relationship Status Dates Dr. Jessi Olguin MD Primary Care Provider Active Start: September 01, 2024 End: September 01, 2024 Dr. Jessi Olguin MD Referring Provider Active St art: September 01, 2024 End: September 01, 2024 Sanaz Angel PA, PA Attending Provider Active Start: September 01, 2024 End: September 01, 2024 Team Status: Inactive Member Role/Relationship Status Dates Dr. Jessi Olguin MD Primary Care Provider Active Start: September 01, 2024 End: September 03, 2024 Dr. Jessi Calloway , Emergency Provider Active Start: September 01, 2024 End: September 03, 2024 Dr. Shonda Gaston MD Admit Provider Active St art: September 01, 2024 End: September 03, 2024 Dr. Shonda Gaston MD Other Provider Active St art: September 01, 2024 End: September 03, 2024 Dr. Wood Braxton MD Attending Provider Active Start: September 01, 2024 End: September 03, 2024 Team Status: Active Member Role/Relationship Status Dates Dr. Jessi Olguin MD Primary [...] September 02, 2024 Team Status: Active Member Role/Relationship Status Dates Dr. Jessi Olguin MD Primary [...] September 03, 2024 Team Status: Inactive Member Role/Relationship Status Dates Dr. Jessi Olguin MD Primary Care Provider Active Start: September 04, 2024 End: September 04, 2024 Dr. Jessi Olguin MD Attending Provider Active St art: September 04, 2024 End: September 04, 2024 Dr. Jessi Olguin MD Referring Provider Active St art: September 04, 2024 End: September 04, 2024 Team Status: Inactive Member Role/Relationship Status Dates Dr. Jessi Olguin MD Primary [...] September 21, 2024 Team Status: Inactive Member Role/Relationship Status Dates Dr. Jessi Olguin MD Primary Care Provider Active Start: October 14, 2024 End: October 14, 2024 Dr. Jessi Olguin MD Attending Provider Active St art: October 14, 2024 End: October 14, 2024 Dr. Jessi Olguin MD Referring Provider Active St art: October 14, 2024 End: October 14, 2024 Team Status: Inactive Member Role/Relationship Status Dates Dr. Jessi Olguin MD Primary Care Provider Active Start: November 10, 2024 End: November 10, 2024 Dr. Jessi Olguin MD Referring Provider Active St art: November 10, 2024 End: November 10, 2024 MAE Lopes Attending Provider Active Start: November 10, 2024 End: November 10, 2024 Team Status: Inactive Member Role/Relationship Status Dates Dr. Jessi Olguin MD Primary Care Provider Active Start: November 14, 2024 End: November 18, 2024 Dr. Hoang Robertson MD Emergency Provider Active S tart: November 14, 2024 End: November 18, 2024 Dr. Erin Morris MD Admit Provider Active St art: November 14, 2024 End: November 18, 2024 Dr. Erin Morris MD Other Provider Active St art: November 14, 2024 End: November 18, 2024 Dr. Judson Isabel MD Other Provider Active Start : November 14, 2024 End: November 18, 2024 Dr. Osmar Brown MD Attending Provider Active Start: November 14, 2024 End: November 18, 2024 Team Status: Active Member Role/Relationship Status Dates Dr. Jessi Olguin MD Primary Care Provider Active Start: November 14, 2024 Dr. Hoang Robertson MD Emergency Provider Active S tart: November 14, 2024 Dr. Erin Morris MD Admit Provider Active St art: November 14, 2024 Dr. Erin Morris MD Other Provider Active St art: November 14, 2024 Dr. Johny Barclay MD Attending Provider Active Start: November 14, 2024 Dr. Johny Barclay MD Other Provider Active Star t: November 14, 2024 Team Status: Active Member Role/Relationship Status Dates Dr. Jessi Olguin MD Primary Care Provider Active Start: November 15, 2024 Dr. Hoang Robertson MD Emergency Provider Active S tart: November 15, 2024 Dr. Erin Morris MD Admit Provider Active St art: November 15, 2024 Dr. Erin Morris MD Other Provider Active St art: November 15, 2024 Dr. Johny Barclay MD Attending Provider Active Start: November 15, 2024 Dr. Johny Barclay MD Other Provider Active Star t: November 15, 2024 Team Status: Active Member Role/Relationship Status Dates Dr. Jessi Olguin MD Primary Care Provider Active Start: November 15, 2024 Dr. Hoang Robertson MD Emergency Provider Active S tart: November 15, 2024 Dr. Erin Morris MD Admit Provider Active St art: November 15, 2024 Dr. Erin Morris MD Attending Provider Active Start: November 15, 2024 Dr. Erin Morris MD Other Provider Active St art: November 15, 2024 Dr. Johny Barclay MD Other Provider Active Star t: November 15, 2024 Team Status: Active Member Role/Relationship Status Dates Dr. Jessi Olguin MD Primary Care Provider Active Start: November 16, 2024 Dr. Hoang Robertson MD Emergency Provider Active S tart: November 16, 2024 Dr. Erin Morris MD Admit Provider Active St art: November 16, 2024 Dr. Erin Morris MD Other Provider Active St art: November 16, 2024 Dr. Judson Isabel MD Attending Provider Active S tart: November 16, 2024 Dr. Judson Isabel MD Other Provider Active Start : November 16, 2024 Dr. Osmar Brown MD Other Provider Active Sta rt: November 16, 2024 Team Status: Active Member Role/Relationship Status Dates Dr. Jessi Olguin MD Primary Care Provider Active Start: November 16, 2024 Dr. Hoang Robertson MD Emergency Provider Active S tart: November 16, 2024 Dr. Erin Morris MD Admit Provider Active St art: November 16, 2024 Dr. Erin Morris MD Other Provider Active St art: November 16, 2024 Dr. Judson Isabel MD Other Provider Active Start : November 16, 2024 Dr. Osmar Brown MD Attending Provider Active Start: November 16, 2024 Dr. Osmar Brown MD Other Provider Active Sta rt: November 16, 2024 Team Status: Active Member Role/Relationship Status Dates Dr. Jessi Olguin MD Primary Care Provider Active Start: November 17, 2024 Dr. Hoang Robertson MD Emergency Provider Active S tart: November 17, 2024 Dr. Erin Morris MD Admit Provider Active St art: November 17, 2024 Dr. Erin Morris MD Other Provider Active St art: November 17, 2024 Dr. Judson Isabel MD Attending Provider Active S tart: November 17, 2024 Dr. Judson Isabel MD Other Provider Active Start : November 17, 2024 Dr. Osmar Brown MD Other Provider Active Sta rt: November 17, 2024 Team Status: Active Member Role/Relationship Status Dates Dr. Jessi Olguin MD Primary Care Provider Active Start: November 17, 2024 Dr. Hoang Robertson MD Emergency Provider Active S tart: November 17, 2024 Dr. Erin Morris MD Admit Provider Active St art: November 17, 2024 Dr. Erin Morris MD Other Provider Active St art: November 17, 2024 Dr. Judson Isabel MD Other Provider Active Start : November 17, 2024 Dr. Osmar Brown MD Attending Provider Active Start: November 17, 2024 Dr. Osmar Brown MD Other Provider Active Sta rt: November 17, 2024 Team Status: Active Member Role/Relationship Status Dates Dr. Jessi Olguin MD Primary Care Provider Active Start: November 18, 2024 Dr. Hoang Robertson MD Emergency Provider Active S tart: November 18, 2024 Dr. Erin Morris MD Admit Provider Active St art: November 18, 2024 Dr. Erin Morris MD Other Provider Active St art: November 18, 2024 Dr. Judson Isabel MD Attending Provider Active S tart: November 18, 2024 Dr. Judson Isabel MD Other Provider Active Start : November 18, 2024 Dr. Osmar Brown MD Other Provider Active Sta rt: November 18, 2024 Team Status: Active Member Role/Relationship Status Dates Dr. Jessi Olguin MD Primary Care Provider Active Start: November 18, 2024 Dr. Hoang Robertson MD Emergency Provider Active S tart: November 18, 2024 Dr. Erin Morris MD Admit Provider Active St art: November 18, 2024 Dr. Erin Morris MD Other Provider Active St art: November 18, 2024 Dr. Judson Isabel MD Other Provider Active Start : November 18, 2024 Dr. Osmar Brown MD Attending Provider Active Start: November 18, 2024 Dr. Osmar Brown MD Other Provider Active Sta rt: November 18, 2024 Team Status: Inactive Member Role/Relationship Status Dates Dr. Jessi Olguin MD Primary Care Provider Active Start: December 01, 2024 End: December 01, 2024 Dr. Jessi Olguin MD Referring Provider Active St art: December 01, 2024 End: December 01, 2024 Sanaz Angel PA, PA Attending Provider Active Start: December 01, 2024 End: December 01, 2024 Team Status: Inactive Member Role/Relationship Status Dates Dr. Jessi Olguin MD Primary Care Provider Active Start: December 01, 2024 End: December 01, 2024 MAE Lopes Attending Provider Active Start: December 01, 2024 End: December 01, 2024 MAE Lopes Referring Provider Active Start: December 01, 2024 End: December 01, 2024 Team Status: Inactive Member Role/Relationship Status Dates Dr. Jessi Olguin MD Primary Care Provider Active Start: November 14, 2024 End: November 18, 2024 Dr. Hoang Robertson MD Emergency Provider Active S tart: November 14, 2024 End: November 18, 2024 Dr. Erin Morris MD Admit Provider Active St art: November 14, 2024 End: November 18, 2024 Dr. Erin Morris MD Other Provider Active St art: November 14, 2024 End: November 18, 2024 Dr. Osmar Brown MD Attending Provider Active Start: November 14, 2024 End: November 18, 2024 Dr. Judson Isabel MD Other Provider Active Start : November 14, 2024 End: November 18, 2024 Team Status: Inactive Member Role/Relationship Status Dates Dr. Jessi Olguin MD Primary Care Provider Active Start: December 25, 2024 End: December 25, 2024 Dr. Jessi Olguin MD Referring Provider Active St art: December 25, 2024 End: December 25, 2024 MAE Lopes Attending Provider Active Start: December 25, 2024 End: December 25, 2024 FOR RECORDS PERTAINING TO PATIENTS WHO [...] BE BASED ON THE PRIMARY CLINICAL RECORDS. [facility]) [facility]. provides no warranty or guarantee of the accuracy or completeness of information in this document.
--- NOTE | 2025-01-06 08:57 | PCM.PSN.6M ---
PSN 6 Minute Walk Test 6 Minute Walk Test 6 Minute Walk Test: 6 Minute Walk Test PSN:6-Minute Walk Test Start: 01/05/25 12:12 Freq: Status: Active Protocol: RESP.6MINW Document 01/05/25 12:12 REPLACED BY [facility] (Rec: 01/05/25 12:19 REPLACED BY [facility] [id number]) 6 Minute Walk Test Date Performed 01/05/25 Time Performed 11:40 Height 6 ft 3 in Weight: 217 lb Weight in Pounds [address]: Raffaele Olguin Assistive device Walker used: Pre-test Oxygen Delivery Room Air Method Pulse Ox (%) 99 Pulse Rate (60-100 79 beats/min) Dyspnea Indira Scale ( 0 0-10) Exertion Indira Scale 6 (6-20) 1st minute Oxygen Delivery Room Air Method Pulse Ox (%) 96 Pulse Rate (60-100 70 beats/min) Dyspnea Indira Scale ( 0 0-10) Number of Rests 0 Taken 2nd minute Oxygen Delivery Room Air Method Pulse Ox (%) 97 Pulse Rate (60-100 76 beats/min) Dyspnea Indira Scale ( 0 0-10) Number of Rests 0 Taken 3rd minute Oxygen Delivery Room Air Method Pulse Ox (%) 95 Pulse Rate (60-100 82 beats/min) Dyspnea Indira Scale ( 0 0-10) Number of Rests 0 Taken 4th minute Oxygen Delivery Room Air Method Pulse Ox (%) 95 Pulse Rate (60-100 84 beats/min) Dyspnea Indira Scale ( 0 0-10) Number of Rests 0 Taken 5th minute Oxygen Delivery Room Air Method Pulse Ox (%) 94 Pulse Rate (60-100 84 beats/min) Dyspnea Indira Scale ( 0 0-10) Number of Rests 0 Taken 6th minute Oxygen Delivery Room Air Method Pulse Ox (%) 96 Pulse Rate (60-100 74 beats/min) Dyspnea Indira Scale ( 0 0-10) Number of Rests 0 Taken Post-test Oxygen Delivery Room Air Method Pulse Ox (%) 97 Pulse Rate (60-100 71 beats/min) Dyspnea Indira Scale ( 0 0-10) Exertion Indira Scale 6 (6-20) Full Laps Walked 5 Partial Lap, Number 49 of Tiles Walked Total Distance 344 Walked (ft) 01/05/25 12:17 Cardiopulmonary Services by SeanSeptember PATIENT USED A WALKER FOR TESTING. FOR PT SAFETY, GUIDANCE PROVIDED TO KEEP HIM GOING STRAIGHT AND WHEN TO TURN AROUND, OTHERWISE PATIENT AMBULATED ON HIS OWN WITH THE WALKER. HE DID NOT REQUEST ANY REST BREAKS DURING TESTING, TESTING PERFORMED WITHOUT SUPPLEMENTAL OXYGEN NEEDED. HE AMBULATED A TOTAL OF 344FT DURING 6 MINUTES. Initialized on 01/05/25 12:17 - END OF NOTE Interpretation Interpretation: The patient ambulated 344 feet over the course of 6 minutes beginning on room air with use of a walker. Pretesting oxygen saturation was noted to be 99% on room air. With ambulation, the scott oxygen saturation was 94%. This testing indicated the presence of significantly impaired walk distance along with significant exertional oxygen desaturation, consistent with a pulmonary limitation to exercise tolerance. Recommendations Recommendations: There is no indication for the use of supplemental oxygen at this time. However, close interval follow-up is recommended, given the degree of oxygen desaturation noted during this study.
== END | disposition home or self-care (01) ==
LOC: CT 11:31
PROVIDERS: PCP Family Medicine; Referring Provider Family Medicine; Visit Provider Family Medicine
DX: E27.9 Disorder of adrenal gland, unspecified (principal); J43.2 Centrilobular emphysema
CPT/HCPCS: 74170; 94618; Q9967

== ENCOUNTER → 2025-01-11 | Outpatient (CLI) | payer MEDICARE, OTHER, SELFPAY ==
[2025-01-11 11:19] LABS: Hematocrit 34.0 % (40-54); Hemoglobin 11.1 g/dL (13.0-16.5); Immature Granulocytes Count 0.020 X10^3/uL (0.0-0.0); Mean Corp Hgb Conc 32.6 g/dL (32-36); Mean Corpuscular Volume 93.4 fL (80-94); NRBC Flagged by Analyzer 0 % (0-5); POSITIVE COUNT YES; RBC Distribution Width CV 16.6 % (11.6-14.6); RBC Distribution Width SD 55.8 fl (35.1-43.9); Red Blood Count 3.64 M/mm3 (4.6-6.2); White Blood Count 4.3 K/mm3 (4.4-11.0)
[2025-01-11 12:05] LABS: AST(SGOT) 19 U/L (<=37); Alanine Aminotransfer ALT/SGPT 18 U/L (<=46); Albumin, Serum 3.9 g/dL (3.4-4.8); Alkaline Phosphatase 74 U/L (40-129); Bilirubin, Direct 0.34 mg/dL (0.00-0.30); Cholesterol 113 mg/dL (<=200); Globulin 3.0 g/dL (2.2-4.2); Low Density Lipoprotein Calc. 43 mg/dL; Triglycerides 51 mg/dL; Very Low Density Lipoprotein 10 mg/dL (5-40); cholesterol:hdl ratio screen 1.89
[2025-01-11 12:09] LABS: Differential Indicated SCAN CRITERIA MET
[2025-01-11 12:14] LABS: AST(SGOT) 19 U/L (<=37); Alanine Aminotransfer ALT/SGPT 18 U/L (<=46); Albumin, Serum 3.9 g/dL (3.4-4.8); Alkaline Phosphatase 75 U/L (40-129); Anion Gap 10 (5-15); BUN 23 mg/dL (4-19); BUN/Creat Ratio 20.4 RATIO (10-20); Calcium,Total 9.7 mg/dL (7.6-11.0); Carbon Dioxide 26.6 mmol/L (21.0-32.0); Chloride 104 mmol/L (98-108); Free T3 1.9 pg/mL (2.18-3.98); Globulin 3.0 g/dL (2.2-4.2); Glucose 145 mg/dL (70-99); Potassium 3.8 mmol/L (3.3-5.1); T4 Total, Thyroxin 11.7 ug/dL (4.5-12.1)
[2025-01-12 12:09] LABS: ANTINUCLEAR ANTIBODIES DIRECT Negative (Negative)
[2025-01-12 14:09] LABS: Cytoplasmic Ab (C-ANCA) <1:20 titer (Neg:<1:20); Perinuclear Ab (P-ANCA) <1:20 titer (Neg:<1:20)
== END | disposition home or self-care (01) ==
PROVIDERS: Nurse Practitioner Family; PCP Family Medicine; Referring Provider Nurse Practitioner Family; Visit Provider Nurse Practitioner Family
DX: E03.9 Hypothyroidism, unspecified (principal); E11.49 Type 2 diabetes mellitus with other diabetic neurological complication
CPT/HCPCS: 36415; 80053; 80061; 80076; 84436; 84439; 84443; 84481; 85025; 86037; 86038; 86200; 86225; 86431

== ENCOUNTER → 2025-04-13 | Outpatient (CLI) | payer MEDICARE, OTHER, SELFPAY ==
[2025-04-13 15:32] LABS: Hematocrit 33.0 % (40-54); Hemoglobin 11.0 g/dL (13.0-16.5); Immature Granulocytes Count 0.020 X10^3/uL (0.0-0.0); Mean Corp Hgb Conc 33.3 g/dL (32-36); Mean Corpuscular Volume 99.7 fL (80-94); Mean Platelet Vol. 13.6 fl (6.2-12.0); NRBC Flagged by Analyzer 0 % (0-5); Platelet Count 143 K/mm3 (150-450); RBC Distribution Width CV 14.6 % (11.6-14.6); RBC Distribution Width SD 52.6 fl (35.1-43.9); Red Blood Count 3.31 M/mm3 (4.6-6.2); White Blood Count 4.1 K/mm3 (4.4-11.0)
[2025-04-13 15:52] LABS: AST(SGOT) 16 U/L (<=37); Alanine Aminotransfer ALT/SGPT 12 U/L (<=46); Albumin, Serum 3.8 g/dL (3.4-4.8); Alkaline Phosphatase 65 U/L (40-129); Anion Gap 8 (5-15); BUN 26 mg/dL (4-19); BUN/Creat Ratio 27.4 RATIO (10-20); Calcium,Total 9.5 mg/dL (7.6-11.0); Carbon Dioxide 27.0 mmol/L (21.0-32.0); Chloride 106 mmol/L (98-108); Cholesterol 118 mg/dL (<=200); Globulin 3.0 g/dL (2.2-4.2); Glucose 150 mg/dL (70-99); Potassium 4.4 mmol/L (3.3-5.1)
== END | disposition home or self-care (01) ==
PROVIDERS: PCP Family Medicine; Referring Provider Family Medicine; Visit Provider Family Medicine
DX: E11.49 Type 2 diabetes mellitus with other diabetic neurological complication (principal); E03.9 Hypothyroidism, unspecified
CPT/HCPCS: 36415; 80053; 82043; 82465; 82570; 83718; 84439; 84443; 85025